=== PATIENT | female | born 1955 | race Caucasian/White ===

== ENCOUNTER 2021-10-21 16:29 | Emergency (ER) | payer OTHER, BC ==
--- OUTSIDE RECORDS SUMMARY | 2021-10-21 16:38 | XMS REPORT | Continuity of Care Document ---
:1955 Author Organization [facility] t Address [address] [place] [address] Care Team Providers Name Role Phone JOSÉ LUISMED Attending Clinician Unavailable SUDARSHAN Attending Clinician Unavailable CAMILLE Attending Clinician Unavailable MD LONNIE MARTÍNEZ Attending Clinician Unavailable MARITA Attending Clinician Unavailable JENNI Attending Clinician Unavailable MARY ALICE Attending Clinician Unavailable MD MARY ALICE Attending Clinician Unavailable MD SUDARSHAN OBIOMA Attending Clinician Unavailable MD DALIA OBRIEN Attending Clinician Unavailable ADRIANA Attending Clinician Unavailable RACHID Attending Clinician Unavailable DR LAUREL Attending Clinician Unavailable CAMILLE Admitting Clinician Unavailable MD LONNIE MARTÍNEZ Admitting Clinician Unavailable MARY ALICE Admitting Clinician Unavailable MD MARY ALICE Admitting Clinician Unavailable SUDARSHAN Admitting Clinician Unavailable MD Chantal REID Admitting Clinician Unavailable MD DALIA OBRIEN Admitting Clinician Unavailable DR LAUREL Admitting Clinician Unavailable Problems Condition Condition Condition Status Onset Resolution Last Treating Co mments Source Name Details Category Date Date Treatment Clinician Date NATALYA Diagnosis Active 2021-02-24 Mem oria 02-14 12:03:00 l NATALYA 00:00: Denis 00 Active 02/14/2021 [place] COLON Diagnosis Active 2016-11-17 Mem oria CANCER 11-14 05:49:00 l SCREENING- COLON 00:00: Karen nn Z12.11 CANCER 00 SCREENING- Z12.11 Active 11/14/2016 MH [place] R92.1 - Diagnosis Active 2016-04-16 Ma moria MAMMOGRAPH 01-31 15:55:00 l IC R92.1 - 00:01: Denis CALCIFCN MAMMOGRAPH 00 FOUND ON IC CALCIFCN FOUND ON Active 02/01/2016 OPID [place] Z12.31 - Diagnosis Active 2015-11-30 M emoria ENCNTR - 07:08:00 l SCREEN Z12.31 - 00:01: Vicente davis MAMMOGRAM ENCNTR 00 FOR MA SCREEN MAMMOGRAM FOR MA Active 11/12/2015 OPID [place] RT WRIST Diagnosis Active 2016-12-28 M emoria DISTAL - 02:03:00 l RADIUS RT WRIST 09:00: Vicente davis CLSD FX DISTAL 00 RADIUS CLSD FX Active 10/22/2015 [facility] Abnormal Problem Active 2021-09-15 Mem oria glucose 04-22 22:17:41 l level Abnormal 00:00: Vicente davis (finding) glucose 00 level (finding) Active 04/22/2015 Problem 09/15/2021 Data migrated from [employer] on 04/28/15. [facility], OPID Brittany, OPID [place], [facility], [place] Lymphedema Problem Active 2019-11-17 M emoria (disorder) 2- 00:38:51 l 00:00: Denis Lymphedema 00 (disorder) Active 11/25/2013 Problem 11/17/2019 Data migrated from [employer] on 03/20/15. [facility], OPIEverette Soto, OPID [place], [facility], [place] Obstructiv Problem Active 2021-09-15 M emoria e sleep 2-04 22:17:41 l apnea 00:00: [place] syndrome Obstructiv 00 (disorder) e sleep apnea syndrome (disorder) Active 11/25/2013 Problem 09/15/2021 Data migrated from [employer] on 03/20/15. [facility], OPIEverette Soto, OPID [place], [facility], [place] Hypothyroi Problem Active 2019-08-09 M emoria dism 02-12 21:25:36 l (disorder) 00:00: Vicente n Hypothyroi 00 dism (disorder) Active 02/12/2013 Problem 08/09/2019 Data migrated from [employer] on 03/20/15. [facility] OPID Brittany, OPID [place], [facility], [place] Depressive Problem Active 2021-09-15 M emoria disorder 4-24 22:17:41 l (disorder) 00:00: Vicente n Depressive 00 disorder (disorder) Active 02/12/2013 Problem 09/15/2021 Data migrated from [employer] on 03/20/15. [facility], OPID Brittany, OPID [place], [facility], [place] Obesity Problem Active 2016-05-15 Turner arnoldo (disorder) 8-20 00:23:22 l Obesity 00:00: Denis (disorder) 00 Active 06/10/2012 Problem 05/15/2016 Data migrated from [employer] on 03/20/15. OPID Brittany, OPID [place], [facility] Cobalamin Problem Active 2021-09-15 Me moria deficiency 7-11 22:17:41 l (disorder) 00:00: Vicente n Cobalamin 00 deficiency (disorder) Active 05/01/2012 Problem 09/15/2021 Data migrated from [employer] on 03/20/15. [facility] OPID Brittany, OPID [place], [facility], [place] Hypertensi Problem Active 2016-05-15 M emoria ve episode 7-10 00:23:22 l (disorder) 00:00: Vicente n Hypertensi 00 ve episode (disorder) Active 04/30/2012 Problem 05/15/2016 Data migrated from [employer] on 03/20/15. MH OPID Brittany, OPID [place], [facility] Pain in Problem 2016-01-01 Turner arnoldo wrist 05:02:18 l (finding) Pain in Herm connie wrist (finding) Problem 01/01/2016 [facility] Calcificat Problem Resolve 2021-09-15 Memoria ion of d 22:17:41 l breast Denis (finding) Calcificat ion of breast (finding) Resolved Problem 09/15/2021 Left [facility], OPID Brittany, OPID [place], [facility], [place] Dysuria Problem Resolve 2021-09-15 Mem oria (finding) d 22:17:41 l Dysuria Denis (finding) Resolved Problem 09/15/2021 [facility], [facility] [place], [facility] Acute Problem Active 2020-02-08 Memor ia urinary 22:36:35 l tract Acute Denis infection urinary (disorder) tract infection (disorder) Active Problem 02/08/2020 [facility] Chronic Problem Active 2020-02-08 Turner arnoldo renal 22:36:35 l impairment Chronic Her hunt (disorder) renal impairment (disorder) Active Problem 02/08/2020 [facility], OPIEverette Soto, OPID [place], [facility], [place] Diabetes Problem Active 2020-06-24 Mem oria mellitus 23:27:54 l (disorder) Diabetes He rmann mellitus (disorder) Active Problem 06/24/2020 [facility], OPID [place] Urinalysis Problem Active 2021-09-15 M emoria = abnormal 22:17:41 l (finding) Denis Urinalysis = abnormal (finding) Active Problem 09/15/2021 [facility], [facility] [place], [place] Atrial Problem Active 2021-09-15 Memor ia fibrillati 22:17:41 l on Atrial Denis (disorder) fibrillati on (disorder) Active Problem 09/15/2021 [facility], [facility] [place], [facility] Benign Problem Active 2021-09-15 Memor ia essential 22:17:41 l hypertensi Benign Herm connie on essential (disorder) hypertensi on (disorder) Active Problem 09/15/2021 [facility], OPID Brittany, OPID [place], [facility], [place] Cardiorena Problem Active 2021-09-15 M emoria l syndrome 22:17:41 l (disorder) Vicente n Cardiorena l syndrome (disorder) Active Problem 09/15/2021 [facility], OP[facility] [place], [place] Chronic Problem Active 2021-09-15 Turner arnoldo kidney 22:17:41 l disease Chronic Vicente n (disorder) kidney disease (disorder) Active Problem 09/15/2021 [facility], [facility] [place], [facility] Chronic Problem Active 2021-09-15 Turner arnoldo kidney 22:17:41 l disease Chronic Vicente n stage 3 kidney (disorder) disease stage 3 (disorder) Active Problem 09/15/2021 [facility], [facility] [place], [facility] Chronic Problem Active 2021-09-15 Turner arnoldo pain 22:17:41 l (finding) Chronic Herm connie pain (finding) Active Problem 09/15/2021 [facility], [facility] [place], [facility] Dependence Problem Active 2021-09-15 M emoria on 22:17:41 l supplement Vicente n al oxygen Dependence (finding) on supplement al oxygen (finding) Active Problem 09/15/2021 [facility], [place] Edema of Problem Active 2021-09-15 Mem oria lower 22:17:41 l extremity Edema of Her hunt (finding) lower extremity (finding) Active Problem 09/15/2021 [facility], [facility] [place], [facility] Hyperlipid Problem Active 2021-09-15 M emoria emia 22:17:41 l (disorder) Vicente n Hyperlipid emia (disorder) Active Problem 09/15/2021 Data migrated from [facility] on 03/20/15. [facility], ANTHONY Soto, OPID [place], [facility] [place], [place] Hyperparat Problem Active 2021-09-15 M emoria hyroidism 22:17:41 l (disorder) Vicente n Hyperparat hyroidism (disorder) Active Problem 09/15/2021 [facility], OP[facility] [place], [facility] Hypertensi Problem Active 2021-09-15 M emoria ve 22:17:41 l disorder, [place] systemic Hypertensi arterial ve (disorder) disorder, systemic arterial (disorder) Active Problem 09/15/2021 [facility], OPID [place], [place] Hypertensi Problem Active 2021-09-15 M emoria ve renal 22:17:41 l disease [place] (disorder) Hypertensi ve renal disease (disorder) Active Problem 09/15/2021 [facility], [facility] [place], [place] Hyperurice Problem Active 2021-09-15 M emoria bryant 22:17:41 l (disorder) Vicente n Hyperurice bryant (disorder) Active Problem 09/15/2021 Data migrated from [facility] on 03/20/15. [facility], OPID Brittany, OPID [place], [facility], [place] Lymphedema Problem Active 2021-09-15 M emoria of lower 22:17:41 l extremity Denis (disorder) Lymphedema of lower extremity (disorder) Active Problem 09/15/2021 [facility], [facility] [place], [facility] Malignant Problem Active 2021-09-15 Me moria neoplasm 22:17:41 l of skin of Vicente n upper limb Malignant (disorder) neoplasm of skin of upper limb (disorder) Active Problem 09/15/2021 [facility], [facility] [place], [facility] Morbid Problem Active 2021-09-15 Memor ia obesity 22:17:41 l (disorder) Morbid Herm connie obesity (disorder) Active Problem 09/15/2021 [facility], OPID Brittany, OPID [place], [facility], [place] Post-disch Problem Active 2021-09-15 M emoria arge 22:17:41 l follow-up [place] (finding) Post-disch arge follow-up (finding) Active Problem 09/15/2021 [facility], [place] Prerenal Problem Active 2021-09-15 Mem oria azotemia 22:17:41 l (disorder) Prerenal He rmann azotemia (disorder) Active Problem 09/15/2021 [facility], [facility] [place], [place] Proteinuri Problem Active 2021-09-15 M emoria a 22:17:41 l (finding) Denis Proteinuri a (finding) Active Problem 09/15/2021 [facility], [facility] [place], [place] Stasis Problem Active 2021-09-15 Memor ia ulcer 22:17:41 l (disorder) Stasis Herm connie ulcer (disorder) Active Problem 09/15/2021 [facility], [facility] [place], [place] Swelling - Problem Active 2021-09-15 M emoria edema - 22:17:41 l symptom Swelling Karen nn (finding) - edema - symptom (finding) Active Problem 09/15/2021 [facility], [facility] [place], [facility] Swollen Problem Active 2021-09-15 Turner arnoldo ankle 22:17:41 l (finding) Swollen Herm connie ankle (finding) Active Problem 09/15/2021 [facility], [facility] [place], [place] Urinary Problem Resolve 2021-09-15 Mem oria tract d 22:17:41 l infectious Urinary Her hunt disease tract (disorder) infectious disease (disorder) Resolved Problem 09/15/2021 [facility], [facility] [place], [place] Venous Problem Active 2021-09-15 Memor ia ulcer of 22:17:41 l leg Venous Denis (disorder) ulcer of leg (disorder) Active Problem 09/15/2021 [facility], [facility] [place], [place] Weight Problem Active 2021-09-15 Memor ia gain 22:17:41 l finding Weight [place] (finding) gain finding (finding) Active Problem 09/15/2021 [facility], [facility] [place], [place] Acute Problem Active 2016-05-15 Memor ia renal 00:23:22 l failure Acute [place] syndrome renal (disorder) failure syndrome (disorder) Active Problem 05/15/2016 Data migrated from [facility] on 03/20/15. OPID Brittany, OPID [place],[facility] Kidney Problem Active 2016-11-20 Memor ia disease 03:07:28 l (disorder) Kidney Herm connie disease (disorder) Active Problem 11/20/2016 [place] Migraine Problem Active 2016-11-20 Mem oria (disorder) 03:07:28 l Migraine Vicente n (disorder) Active Problem 11/20/2016 [facility], [place] RIGHT Diagnosis Active 2016-03-09 Mem oria WRIST 15:06:00 l DISTAL RIGHT Denis RADIUS WRIST CLSD FX DISTAL RADIUS CLSD FX Active [facility] DISTAL Diagnosis Active 2016-04-21 Mem oria RADIUS 09:46:00 l CLSD FX DISTAL Denis RADIUS CLSD FX Active [facility] Cholestero Problem 2016-01-01 M emoria l 05:02:18 l (substance Vicente n ) Cholestero l (substance ) Problem 01/01/2016 [facility] Sleep Problem 2016-01-01 Memor ia apnea 05:02:18 l (finding) Sleep Vicente n apnea (finding) Problem 01/01/2016 2does not use cpap [facility] [place] Dependence Problem 2020-102021-09-12 2021-09-12 Memoria on 11-09 01:29:16 01:29:16 l supplement 21:17: Vicente n al oxygen Dependence 00 on supplement al oxygen 09/09/2021 09/12/2021 [facility] Other Problem 2020-102021-09-12 2021-09-12 M emoria hyperlipid 11-09 01:29:16 01:29:16 l emia Other 21:16: [place] hyperlipid 00 emia 09/09/2021 09/12/2021 [facility] Unsteadine Problem 2020-102021-09-12 2021-09-12 Memoria ss on feet 11-09 01:29:16 01:29:16 l 21:13: [place] Unsteadine 00 ss on feet 09/09/2021 09/12/2021 [facility] Weakness Problem 2020-102021-09-12 2021-09-12 Memoria 11-09 01:29:16 01:29:16 l Weakness 21:13: Vicente n 00 09/09/2021 09/12/2021 [facility] Essential Problem 2020-102021-09-12 2021-09-12 Memoria (primary) 11-09 01:29:16 01:29:16 l hypertensi 21:12: Vicente n on Essential 00 (primary) hypertensi on 09/09/2021 09/12/2021 [facility] Other long Problem 2020-102021-09-08 2021-09-08 Memoria term 11-06 22:39:43 22:39:43 l (current) Other 22:29: Vicente n 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 ANTHONY Soto, OPIEverette [place],[facility] Girish Trace,[facility] Allergies, Adverse Reactions, Alerts Allergy Allergy Status Severity Reaction(s) Onset Inactive Treating Comm ents Source Name Type Date Date Clinician penicill penicill Active Memori a ins<sup> ins<sup> l 1</sup> 1</sup> Dneis codeine< codeine< Active Memori a sup>1</s sup>1</s l up> up> Denis cefepime cefepime Active Memori a l [place] Levaquin Levaquin Active Memori a l Denis penicill penicill Active Memori a ins<sup> ins<sup> l 2</sup> 2</sup> Denis codeine codeine Active Memoria l [place] penicill penicill Active Memori a ins ins l Denis Social History Social Habit Start Date Stop Date Quantity Comments Source Social History 2019-08-15 2019-08-15 [facility] Peterson retana 14:54:48 14:54:48 Smoking Status Start Date Stop Date Source Social History [facility] [place] Medications Ordered Filled Start Stop Current Ordering Indication Dosage Frequency Signature Comments Components Source Medication Medication Date Date Medication? Clinician (SIG) Name Name Jaswinderrocin 2020-10 Yes 1 appl, Memor ia 0.02 MG/MG 1-22 TOP, TID, l Topical 23:21: X 5 day, # Herm connie Ointment 00 22 gm, 0 Refill(s), Pharmacy: [facility] #[id number], 165.1, cm, 09/09/21 14:08:00 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, Height, 136.42, kg, 09/09/21 14:08:00 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, Weight bumetanide 2020-10 Yes 2 mg = 1 Mem oria 2 mg oral 1-19 tab, PO, l tablet 21:11: Daily, # Denis 00 30 tab, 0 Refill(s) allopurinol 2020-10 Yes 100 mg = 1 Memoria 100 mg oral 1-19 tab, PO, l tablet 21:10: BID, # 60 Vicente n 00 tab, 0 Refill(s) gabapentin 2020-10 Yes 200 mg = 2 M emoria 100 MG Oral 1-19 cap, PO, l Capsule 21:10: Bedtime, 0 Herm connie 00 Refill(s) QUEtiapine Yes 1 tablet, Me moria 50 mg oral 3-30 once a l tablet 13:55: day, 0 [place] 00 Refill(s) torsemide Yes 1 tablet, Mem oria 20 mg oral 3-30 twice a l tablet 13:55: day, 0 [place] 00 Refill(s) potassium Yes 1 tablet, Mem oria chloride 20 3-30 once a l mEq oral 13:54: day, 0 [place] tablet, 00 Refill(s) extended release (KCL) allopurinol Yes 1/2 Memori a 300 mg oral 3-30 tablet, l tablet 13:53: once a [place] 00 day, 0 Refill(s) carvedilol Yes 1 tablet, Me moria 3.125 mg 3-30 twice a l oral tablet 13:53: day, 0 Herm connie 00 Refill(s) Digoxin Yes 1 tablet, Memor ia 0.125 MG 3-30 once a l Oral Tablet 13:53: day, 0 Herm connie 00 Refill(s) DULoxetine Yes 1 capsule, M emoria 60 mg oral 3-30 once a l delayed 13:53: day, 0 [place] release 00 Refill(s) capsule apixaban 5 Yes 1 tablet, Me moria MG Oral 3-30 twice a l Tablet 13:53: day, 0 Denis [Eliquis] 00 Refill(s) gabapentin Yes 1 capsule, M emoria 300 MG Oral 3-30 twice a l Capsule 13:53: day, 0 Denis 00 Refill(s) metoprolol Yes 1 tablet, Me moria tartrate 50 3-30 Twice a l mg oral 13:53: day, 0 [place] tablet 00 Refill(s) midodrine 5 Yes 1 tablet, M emoria mg oral 3-30 twice a l tablet 13:53: day, 0 Denis 00 Refill(s) DULoxetine 2019-10 Yes 60 mg = 1 Me moria 60 mg oral 1-25 cap, PO, l delayed 17:17: Daily, # Vicente n release 00 30 cap, 0 capsule Refill(s) Spironolact 2019-10 Yes 25 mg = 1 M emoria one 25 MG 1-25 tab, PO, l Oral Tablet 17:17: Daily, 0 He rmann [Aldactone] 00 Refill(s) Digoxin 2019-10 Yes 0.125 mg, Memor ia 0.125 MG 1-25 PO, Daily, l Oral Tablet 17:13: # 30 tab, H ermann 00 0 Refill(s) Mupirocin 2019-10 Yes See Memoria 0.02 MG/MG 0-13 Instructio l Topical 15:44: ns, APPLY Karen nn Ointment 00 EXTERNALLY TO THE AFFECTED AREA TWICE DAILY, # 66 gm, 1 Refill(s), Pharmacy: [facility] #[id number], 170.18, cm, 12/16/19 14:42:00 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, Height, 164.318, kg, 12/16/19 14:42:00 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, Weight Nitrofurant Yes 100 mg = 1 Memoria oin 100 MG 8-09 cap, PO, l Oral 17:57: BID, X 10 Denis Capsule 00 day, # 20 [Macrobid] cap, 0 Refill(s), Pharmacy: [email or web address] #[id number], 170.18, cm, 12/16/19 14:42:00 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, Height, 164.318, kg, 12/16/19 14:42:00 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, Weight lisinopril Yes 2.5 mg = 1 M emoria 2.5 mg oral 6-04 tab, PO, l tablet 23:26: Daily, # [place] 00 30 tab, 2 Refill(s), called to pharmacy calcitriol 2019-0 Yes = 1 cap, Mem oria 0.25 mcg 5-20 PO, Daily, l oral 12:18: # 90 cap, Denis capsule 00 1 Refill(s), [id number] calcitriol 2020-0 Yes = 1 cap, Mem oria 0.25 mcg 4-16 PO, Daily, l oral 16:37: # 90 [place] capsule 47 unknown unit, [id number] Furosemide 2019-0 Yes = 1 tab, Mem oria 40 MG Oral 4-13 PO, Every l Tablet 20:06: Other Day, Karen nn 19 # 45 tab, [id number] prednisolon 2019-0 Yes 1 drop in M emoria e acetate 4-10 each eye, l 10 MG/ML 20:53: once [place] Ophthalmic 00 daily, 0 Suspension Refill(s) bromfenac 2019-0 Yes 1 drop in Mem oria 0.7 MG/ML 4-10 right eye, l Ophthalmic 20:53: once Denis Solution 00 daily, 0 [Prolensa] Refill(s) Furosemide 2019-0 Yes = 1 tab, Mem oria 40 MG Oral 1-23 PO, Every l Tablet 15:13: Other Day, Karen nn 34 # 45 tab, [id number] Mupirocin 2018-10 Yes See Memoria 0.02 MG/MG 2-27 Instructio l Topical 19:11: ns, # 66 Vicente n Ointment 15 gm, APPLY EXTERNALLY TO THE AFFECTED AREA TWICE DAILY, Pharmacy: [facility] #[id number] Nitrofurant 2018-10 Yes 100 mg = 1 Memoria oin 100 MG 2-13 cap, PO, l Oral 01:44: BID, X 5 [place] Capsule 00 day, # 10 [Macrodanti cap, 0 n] Refill(s), [id number] apixaban 5 2018-10 Yes 5 mg, PO, Me moria MG Oral 0-25 Q12H, 0 l Tablet 15:07: Refill(s) Vicente n [Eliquis] 00 metoprolol 2018-10 Yes 50 mg = 1 Me moria tartrate 50 0-25 tab, PO, l mg oral 15:07: BID, # 180 Herm connie tablet 00 tab, 0 Refill(s) Diltiazem 2018-10 Yes 180 mg = 1 Me moria Hydrochlori 0-25 cap, PO, l de XR 180 15:07: Daily, # Herm connie mg/24 hours 00 30 cap, 0 oral Refill(s) capsule, extended release tramadol 2018-10 Yes 150 mg = 1 Mem oria 150 mg/24 0-25 cap, PO, l hours oral 15:07: Daily, 0 Her hunt capsule, 00 Refill(s) extended release Acetaminoph 2018-10 Yes 1 tab, PO, Memoria en 325 MG / 0-25 Q6H, 0 l Hydrocodone 15:07: Refill(s) H ermann Bitartrate 00 5 MG Oral Tablet [[place] 5/325] calcitriol 2018-10 Yes = 1 cap, Mem oria 0.25 mcg 0-11 PO, Daily, l oral 21:10: # 90 [place] capsule 30 unknown unit, Pharmacy: [facility] #[id number] gabapentin Yes 300 mg = 1 M emoria 300 MG Oral 9-27 cap, PO, l Capsule 20:54: BID, # 180 Herm connie 00 cap, 3 Refill(s), called to pharmacy allopurinol Yes = 1 tab, Me moria 300 mg oral 8-17 PO, Daily, l tablet 02:39: # 90 tab, Vicente n 31 Pharmacy: [facility] #[id number] QUEtiapine Yes 50 mg = 1 Me moria 50 mg oral 6-06 tab, PO, l tablet 15:28: Bedtime, # Karen nn 00 30 tab, 1 Refill(s) eletriptan Yes 40 mg = 1 Me moria 40 mg oral 6-06 tab, PO, l tablet 15:26: Daily, PRN Karen nn 00 for migraine headache, may repeat dose once in 2 hours, # 6 tab, 0 Refill(s) atorvastati Yes See Memori a n 40 mg 3-14 Instructio l oral tablet 15:07: ns, TAKE 1 [place] 35 TABLET BY MOUTH EVERY NIGHT AT BEDTIME, # 90 tab, 1 Refill(s), Pharmacy: [facility] [place] [id number] amLODIPine Yes See Memoria 5 mg oral 3-14 Instructio l tablet 15:07: ns, TAKE 1 Karen nn 33 TABLET BY MOUTH EVERY DAY, # 90 tab, 1 Refill(s), Pharmacy: [facility] [place] [id number] lisinopril Yes See Memoria 5 mg oral 8-21 Instructio l tablet 19:00: ns, TAKE 1 Karen nn 30 TABLET BY MOUTH DAILY, # 90 tab, 1 Refill(s), Pharmacy: [facility] [place] [id number] atorvastati Yes See Memori a n 40 mg 8-21 Instructio l oral tablet 18:50: ns, TAKE 1 [place] 45 TABLET BY MOUTH EVERY NIGHT AT BEDTIME, # 30 tab, 5 Refill(s), Pharmacy: [facility] [place] [id number] amLODIPine Yes See Memoria 5 mg oral 8-21 Instructio l tablet 18:50: ns, TAKE 1 Karen nn 41 TABLET BY MOUTH EVERY DAY, # 30 tab, 5 Refill(s), Pharmacy: [facility] [place] [id number] lisinopril No See Memoria 5 mg oral 7-31 Instructio l tablet 15:28: ns, # 90 [place] 34 tab, TAKE 1 TABLET BY MOUTH DAILY, Pharmacy: [facility] [place] [id number] allopurinol No 300 mg = 1 Memoria 300 mg oral 5-10 tab, PO, l tablet 13:59: Daily, # [place] 00 90 tab, 1 Refill(s), Pharmacy: [facility] [place] [id number] lisinopril No See Memoria 5 mg oral 5-01 Instructio l tablet 12:38: ns, # 90 Denis 18 tab, TAKE 1 TABLET BY MOUTH DAILY, Pharmacy: [facility] [place] [id number] ALLOPURINOL Yes See Memori a 300MG 5-01 Instructio l TABLETS 12:38: ns, # 90 Vicente n 18 tab, TAKE 1 TABLET BY MOUTH DAILY, Pharmacy: [facility] [place] [id number] calcitriol Yes 0.25 Memoria 0.25 mcg 3-28 microgram l oral 13:49: = 1 cap, [place] capsule 00 PO, Daily, # 90 cap, 3 Refill(s), [facility] Mupirocin Yes 1 appl, Memor ia 0.02 MG/MG 3-21 TOP, BID, l Topical 15:37: 30 grams Vicente n Ointment 21 3each, # 3 ea, 1 Refill(s), Pharmacy: [facility] atorvastati Yes See Memori a n 40 mg 3-21 Instructio l oral tablet 15:36: ns, TAKE 1 [place] 22 TABLET BY MOUTH EVERY NIGHT AT BEDTIME, # 30 tab, 5 Refill(s), [facility] amLODIPine Yes See Memoria 5 mg oral 3-21 Instructio l tablet 15:36: ns, TAKE 1 Karen nn 18 TABLET BY MOUTH EVERY DAY, # 30 tab, 5 Refill(s), Pharmacy: [facility] aspirin 81 Yes 81 mg = 1 Me moria mg tablet, 1-24 tab, PO, l enteric 16:34: Daily, # Vicente n coated 00 90 tab, 3 Refill(s) Xopenex No Kyle K 0.63 mg = Mem oria 0.63 mg/3 3-11 Silvestre 3 mL, l mL 01:00: Soln, NEB, Denis inhalation 00 Once, solution first dose 12/30/15 19:00:00 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, stop date 12/30/15 19:00:00 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 Misc No Perico 300 mL, Memoria Medication 3-11 Wheat Soln-IV, l 00:03: IV, Once, [place] 00 first dose 12/30/15 18:03:00 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, stop date 12/30/15 18:03:00 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 promethazin No Kyle K 12.5 mg = Memoria e 3-11 Silvestre 0.5 mL, l 00:02: Injection, [place] 00 IM, Once PRN for severe nausea, first dose 12/30/15 18:02:00 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 albuterol No Kyle K 2.5 mg = 3 Memoria 2.5 mg/3 mL 3-11 Silvestre mL, Soln, l (0.083%) 00:02: NEB, Once Herm connie inhalation 00 PRN for solution wheezing, first dose 12/30/15 18:02:00 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 Demerol HCl No Kyle K 12.5 mg = Memoria 3-11 Silvestre 0.25 mL, l 00:02: Injection, [place] 00 IV Push, Once PRN for shivers, first dose 12/30/15 18:02:00 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 ondansetron No Kyle K 4 mg = 2 Memoria 3-11 Silvestre mL, l 00:02: Injection, [place] 00 IV Push, q15min PRN for nausea/vom iting, order duration: 2 doses, first dose 12/30/15 18:02:00 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, stop date Limited # of times Dilaudid No Kyle K 0.5 mg = Mem oria 3-11 Silvestre 0.25 mL, l 00:02: Injection, Denis 00 IV Push, q10min PRN for pain severe (7-10), first dose 12/30/15 18:02:00 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 diphenhydrA No Kyle K 25 mg = M emoria MINE 3-11 Silvestre 0.5 mL, l 00:02: Injection, [place] 00 IV Push, Once PRN for itching, first dose 12/30/15 18:02:00 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 LR 1,000 mL No Kyle K 1,000 mL, Memoria 3-11 Silvestre IV, 75 l 00:02: mL/hr, Denis 00 start date 12/30/15 18:02:00 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 Saline Lock No Kyle K 10 mL, Me moria Flush 3-11 Silvestre Soln, IV l 00:02: Push, As Denis 00 Indicated PRN for flush, first dose 12/30/15 18:02:00 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 Bupivacaine No Kyle K 300 mL, M emoria 0.25% 300 3-11 Silvestre Nerve l mL pump 300 00:02: Block, 5 He rmann mL 00 mL/hr, start date 12/30/15 18:02:00 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 Misc No Perico 1,000 mL, Memori a Medication 3-10 Wheat Soln-IV, l 23:42: IV, Once, [place] 00 first dose 12/30/15 17:42:00 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, stop date 12/30/15 17:42:00 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 fentaNYL No Perico 25 mcg = Mem oria 3-10 Wheat 0.5 mL, l 23:20: Injection, Denis 00 IV, Once, first dose 12/30/15 17:20:00 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, stop date 12/30/15 17:20:00 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 ondansetron No Perico 4 mg = 2 Memoria 3-10 Wheat mL, l 23:03: Injection, Denis 00 IV, Once, first dose 12/30/15 17:03:00 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, stop date 12/30/15 17:03:00 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 fentaNYL No Perico 25 mcg = Mem oria 3-10 Wheat 0.5 mL, l 23:00: Injection, Denis 00 IV, Once, first dose 12/30/15 17:00:00 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, stop date 12/30/15 17:00:00 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 fentaNYL No Perico 25 mcg = Mem oria 3-10 Wheat 0.5 mL, l 22:48: Injection, [place] 00 IV, Once, first dose 12/30/15 16:48:00 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, stop date 12/30/15 16:48:00 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 fentaNYL No Perico 25 mcg = Mem oria 3-10 Wheat 0.5 mL, l 22:37: Injection, Denis 00 IV, Once, first dose 12/30/15 16:37:00 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, stop date 12/30/15 16:37:00 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 dexamethaso No Perico 8 mg = 2 Memoria ne 3-10 Wheat mL, l 22:23: Injection, Denis 00 IV, Once, first dose 12/30/15 16:23:00 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, stop date 12/30/15 16:23:00 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 Misc No Perico 1,000 mL, Memori a Medication 3-10 Wheat Soln-IV, l 22:21: IV, Once, Denis 00 first dose 12/30/15 16:21:00 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, stop date 12/30/15 16:21:00 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 clindamycin Yes Perico 928.125 M emoria 3-10 Wheat mg, l 22:18: Soln-IV, Denis 00 IV, Once, first dose 12/30/15 16:18:00 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, stop date 12/30/15 16:18:00 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 fentaNYL No Perico 25 mcg = Mem oria 3-10 Wheat 0.5 mL, l 22:05: Injection, Denis 00 IV, Once, first dose 12/30/15 16:05:00 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, stop date 12/30/15 16:05:00 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 midazolam No Perico 0.5 mg = Me moria 3-10 Wheat 0.5 mL, l 22:05: Injection, Denis 00 IV, Once, first dose 12/30/15 16:05:00 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, stop date 12/30/15 16:05:00 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 lidocaine No Perico 3 mL, Memor ia 3-10 Wheat Injection, l 21:58: IV, Once, [place] 00 first dose 12/30/15 15:58:00 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, stop date 12/30/15 15:58:00 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 propofol No Perico 120 mg = Mem oria 3-10 Wheat 12 mL, l 21:58: Emulsion, Denis 00 IV, Once, first dose 12/30/15 15:58:00 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, stop date 12/30/15 15:58:00 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 midazolam No Perico 0.5 mg = Me moria 3-10 Wheat 0.5 mL, l 21:50: Injection, Denis 00 IV, Once, first dose 12/30/15 15:50:00 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, stop date 12/30/15 15:50:00 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 fentaNYL No Perico 25 mcg = Mem oria 3-10 Wheat 0.5 mL, l 21:50: Injection, Denis 00 IV, Once, first dose 12/30/15 15:50:00 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, stop date 12/30/15 15:50:00 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 midazolam No Perico 0.5 mg = Me moria 3-10 Wheat 0.5 mL, l 21:10: Injection, Denis 00 IV, Once, first dose 12/30/15 15:10:00 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, stop date 12/30/15 15:10:00 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 fentaNYL No Perico 25 mcg = Mem oria 3-10 Wheat 0.5 mL, l 21:10: Injection, [place] 00 IV, Once, first dose 12/30/15 15:10:00 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, stop date 12/30/15 15:10:00 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 fentaNYL No Perico 25 mcg = Mem oria 3-10 Wheat 0.5 mL, l 21:05: Injection, Denis 00 IV, Once, first dose 12/30/15 15:05:00 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, stop date 12/30/15 15:05:00 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 midazolam No Perico 0.5 mg = Me moria 3-10 Wheat 0.5 mL, l 21:05: Injection, [place] 00 IV, Once, first dose 12/30/15 15:05:00 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, stop date 12/30/15 15:05:00 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 clindamycin No Jose Francisco 900 mg, IV Memoria 3-10 Johnson Piggyback, l 20:00: Once, [place] 00 infuse over 30 minutes, first dose 12/30/15 14:00:00 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, stop date 12/30/15 14:00:00 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, Prophylaxi s LR 1,000 mL No Kyle K 1,000 mL, Memoria 3-10 Silvestre IV, 30 l 19:27: mL/hr, [place] 00 start date 12/30/15 13:27:00 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 Lidocaine No Kyle K 0.2 mL, Mem oria 2% 0.2 mL 3-10 Silvestre Injection, l IV Start 19:27: Subcutaneo [facility]] 00 us, Once PRN for other (see comment), first dose 12/30/15 13:27:00 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 Seroquel Yes 100 mg, Memori a 3-09 Oral, l 14:40: Daily, 0 [place] 00 Refill(s), migraines acetaminoph Yes 1 tabs, Mem oria en-HYDROcod 3-09 Oral, l one 325 14:40: q6hr, 0 Denis mg-5 mg 00 Refill(s), oral tablet pain traMADol 50 Yes 50 mg = 1 M emoria mg oral 3-09 tabs, l tablet 14:40: Oral, Denis 00 q4hr, 0 Refill(s), pain amLODIPine- Yes 1 tabs, Mem oria atorvastati 12-28 Oral, qHS, l n 5 mg-40 14:40: 0 Denis mg oral 00 Refill(s), tablet cholestero l/hyperten will Osteo Yes Oral, Memoria Bi-Flex 3-09 Daily, 0 l 14:40: Refill(s), [place] 00 supplement Nature's Yes 1,000 mg = Mem oria Bounty Red 12-28 2 caps, l Krill Oil 14:40: Oral, BID, He rmann 500 mg oral 00 0 capsule Refill(s), supplement aspirin 81 Yes 81 mg = 1 Me moria mg oral 12-28 tabs, l tablet 14:40: Oral, Denis 00 Daily, 0 Refill(s), supplement Axert 12.5 Yes 12.5 mg = Me moria mg oral 12-28 1 tabs, l tablet 14:40: Oral, [place] 00 Once, PRN for migraine headache, may repeat dose once in 2 hours, # 6 tabs, 0 Refill(s), migrainesm ay repeat dose once in 2 hours Wellbutrin Yes 300 mg, Turner arnoldo XL 12-28 Oral, l 14:40: q24hr, 0 [place] 00 Refill(s), migraines Immunizations Ordered Immunization Filled Immunization Date Status Commen ts Source Name Name influenza 2019-08-13 Completed [facility] vaccine-unspecified< 00:00:00 Herm connie sup>1</sup> pneumococcal 2019-05-14 Completed [facility] 23-valent 00:00:00 Denis vaccine<sup>3</sup> Hx influenza 2011-08-15 Completed [facility] vaccine-unspecified< 14:42:42 Herm connie sup>1</sup> Hx influenza 2011-08-15 Completed [facility] vaccine-unspecified< 14:42:42 Herm connie sup>2</sup> Vital Signs Vital Name Observation Time Observation Value Comments Source Heart Rate 2021-09-09 20:12:00 [facility] Denis Heart Rate 2021-09-09 20:08:00 [facility] [place] Systolic (mm Hg) 2021-09-09 20:08:00 Turner rial [place] Diastolic (mm Hg) 2021-09-09 20:08:00 Mem orial Denis Height 2021-09-09 20:08:00 165.1 cm [facility] Denis Weight 2021-09-09 20:08:00 [facility] [place] BMI Calculated 2021-09-09 20:08:00 Memori al [place] Systolic (mm Hg) 2020-09-15 15:59:00 Turner rial Denis Diastolic (mm Hg) 2020-09-15 15:59:00 Mem orial [place] Heart Rate 2020-09-15 15:59:00 [facility] Denis Height 2020-09-15 15:59:00 165.1 cm [facility] [place] Weight 2020-09-15 15:59:00 [facility] [place] BMI Calculated 2020-09-15 15:59:00 Memori al Denis Systolic (mm Hg) 2019-12-16 20:42:00 Turner rial [place] Diastolic (mm Hg) 2019-12-16 20:42:00 Mem orial [place] Heart Rate 2019-12-16 20:42:00 [facility] Denis Temperature Oral (F) 2019-12-16 20:42:00 98.2 F [facility] Height 2019-12-16 20:42:00 170.18 cm [facility] [place] Weight 2019-12-16 20:42:00 [facility] [place] BMI Calculated 2019-12-16 20:42:00 Memori al Denis Systolic (mm Hg) 2019-10-02 21:53:00 Turner rial Denis Diastolic (mm Hg) 2019-10-02 21:53:00 Mem orial Denis Heart Rate 2019-10-02 21:53:00 [facility] [place] Temperature Oral (F) 2019-10-02 21:53:00 97.9 F [facility] [place] Height 2019-10-02 21:53:00 165.1 cm [facility] [place] Weight 2019-10-02 21:53:00 [facility] [place] BMI Calculated 2019-10-02 21:53:00 Memori al Denis Height 2019-08-15 14:54:00 165.1 cm [facility] Denis Weight 2019-08-15 14:54:00 [facility] [place] BMI Calculated 2019-08-15 14:54:00 Memori al [place] Systolic (mm Hg) 2019-08-15 14:54:00 Turner rial Denis Diastolic (mm Hg) 2019-08-15 14:54:00 Mem orial [place] Heart Rate 2019-08-15 14:54:00 [facility] [place] Temperature Oral (F) 2019-08-15 14:54:00 97.6 F [facility] [place] Systolic (mm Hg) 2019-07-31 15:37:00 Turner rial Denis Diastolic (mm Hg) 2019-07-31 15:37:00 Mem orial [place] Heart Rate 2019-07-31 15:37:00 [facility] Denis Temperature Oral (F) 2019-07-31 15:37:00 98.2 F [facility] [place] Height 2019-07-31 15:37:00 165.1 cm [facility] [place] Weight 2019-07-31 15:37:00 [facility] [place] BMI Calculated 2019-07-31 15:37:00 Memori al [place] Weight 2019-03-27 15:18:00 [facility] [place] BMI Calculated 2019-03-27 15:18:00 Memori al [place] Height 2019-03-27 15:18:00 165.1 cm [facility] [place] Temperature Oral (F) 2019-03-27 15:18:00 98.4 F [facility] [place] Heart Rate 2019-03-27 15:18:00 [facility] [place] Systolic (mm Hg) 2019-03-27 15:18:00 Turner rial [place] Diastolic (mm Hg) 2019-03-27 15:18:00 Mem orial Denis Height 2019-01-02 19:16:00 165.1 cm [facility] [place] BMI Calculated 2019-01-02 19:16:00 Memori al [place] Weight 2019-01-02 19:16:00 [facility] [place] Heart Rate 2019-01-02 19:16:00 [facility] [place] Systolic (mm Hg) 2019-01-02 19:16:00 Turner rial [place] Diastolic (mm Hg) 2019-01-02 19:16:00 Mem orial [place] Height 2019-01-02 14:26:00 167.01 cm [facility] [place] BMI Calculated 2019-01-02 14:26:00 Memori al Denis Weight 2019-01-02 14:26:00 [facility] [place] Heart Rate 2019-01-02 14:26:00 [facility] [place] Temperature Oral (F) 2019-01-02 14:26:00 97.9 F [facility] [place] Systolic (mm Hg) 2019-01-02 14:26:00 Turner rial Denis Diastolic (mm Hg) 2019-01-02 14:26:00 Mem orial [place] Systolic (mm Hg) 2018-07-18 18:33:00 Turner rial [place] Diastolic (mm Hg) 2018-07-18 18:33:00 Mem orial Denis Heart Rate 2018-07-18 18:33:00 [facility] [place] Weight 2018-07-18 18:33:00 [facility] [place] BMI Calculated 2018-06-11 18:31:00 Memori al [place] Weight 2018-06-11 18:31:00 [facility] [place] Systolic (mm Hg) 2018-06-11 18:31:00 Turner rial [place] Diastolic (mm Hg) 2018-06-11 18:31:00 Mem orial [place] Height 2018-06-11 18:31:00 170.18 cm [facility] [place] Temperature Oral (F) 2018-06-11 18:31:00 98.3 F [facility] [place] Heart Rate 2018-06-11 18:31:00 [facility] [place] Weight 2018-01-10 16:14:00 [facility] [place] Height 2018-01-10 16:14:00 170.18 cm [facility] [place] BMI Calculated 2018-01-10 16:14:00 Memori al Denis Heart Rate 2018-01-10 16:14:00 [facility] [place] Systolic (mm Hg) 2018-01-10 16:14:00 Turner rial [place] Diastolic (mm Hg) 2018-01-10 16:14:00 Mem orial Denis BMI Calculated 2018-01-09 15:06:00 Memori al [place] Height 2018-01-09 15:06:00 170.18 cm [facility] [place] Weight 2018-01-09 15:06:00 [facility] [place] Systolic (mm Hg) 2018-01-09 15:06:00 Turner rial [place] Diastolic (mm Hg) 2018-01-09 15:06:00 Mem orial Denis Heart Rate 2018-01-09 15:06:00 [facility] [place] Temperature Oral (F) 2018-01-09 15:06:00 97.9 F [facility] [place] Weight 2016-11-14 16:17:00 [facility] [place] Height 2016-11-14 16:17:00 170.18 cm [facility] [place] BMI Calculated 2016-11-14 16:17:00 Memori al Denis Respitory Rate 2015-12-31 01:25:00 Memori al [place] Systolic (mm Hg) 2015-12-31 00:50:00 Turner rial [place] Respitory Rate 2015-12-31 00:50:00 Memori al Denis Heart Rate 2015-12-31 00:50:00 [facility] [place] Systolic (mm Hg) 2015-12-31 00:40:00 Turner rial [place] Respitory Rate 2015-12-31 00:40:00 Memori al Denis Heart Rate 2015-12-31 00:40:00 [facility] [place] Heart Rate 2015-12-31 00:30:00 [facility] [place] Systolic (mm Hg) 2015-12-31 00:30:00 Turner rial [place] Temperature Oral (F) 2015-12-30 23:50:00 37.1 Linda [facility] [place] Height 2015-12-30 19:23:00 169 cm [facility] [place] Weight 2015-12-30 19:23:00 [facility] [place] Temperature Oral (F) 2015-12-30 19:23:00 36.6 Linda [facility] [place] Height 2015-12-29 14:13:00 170 cm [facility] [place] Weight 2015-12-29 14:13:00 [facility] [place] Procedures Procedure Date / Time Performed Performing Clinician [facility] e Diabetic retinal eye 2019-12-11 06:00:00 Jourdan Barrios exam<sup>1</sup> Mammogram 2017-05-05 05:00:00 Aylin hunt Colonoscopy<sup>2</sup> 2016-11-17 06:00:00 Turner rial Denis OPEN REDUCTION INTERNAL 2015-12-30 22:13:00 Jose Francisco Johnson Memo rial Denis FIXATION RADIUS INTRA-ARTICULAR W/3 FRAGMENTS 90510 (Right)<sup>1</sup> Repair of 2015-12-30 06:00:00 Aylin hunt wrist<sup>1</sup> skin cancer removed from 2011-10-22 00:00:00 Mem orial [place] arm Skin cancer of [facility] [place] arm<sup>2</sup> Procedure<sup>2</sup> [facility] Tubal ligation [facility] Eye operation [facility] Biopsy of breast [facility] n bilateral radial [facility] kerototomy bilateral tubal ligation Memoria l Denis colonoscopy [facility] Encounters Start End Encounter Admission Attending Care Care Encounter Source Date/Time Date/Time Type Type Clinicians Facility Department ID 2021-09-20 2021-09-20 Outpatient ADRIANA [facility] [id number] [place] 00:00:00 00:00:00 SURIND[address]ILATOSHA [address] 2021-09-12 2021-09-13 Between nullFlavo [facility] Family [id number] Memoria 14:18:24 14:18:24 Visit r Medicine 62 l Carrillo Zhang n 2021-09-12 2021-09-13 Between nullFlavo [facility] Family [id number] Memoria 00:56:47 00:56:47 Visit r Medicine 61 l Carrillo Zhang n 2021-09-09 2021-09-10 Outpatient nullFlavo [facility] Family 3 [id number] Memoria 20:00:00 05:59:59 r Medicine 52 l Vizcainojoanne Zhang n 2021-09-06 2021-09-08 Phone nullFlavo [facility] Family [id number] Memoria 21:38:38 05:59:59 Message r Medicine 13 l Carrillo Zhang n 2021-09-07 2021-09-07 Outpatient SUDARSHAN [facility] [id number] [place] 00:00:00 00:00:00 MARY Barragan[address] [facility] 2021-09-05 2021-09-06 Between nullFlavo [facility] Family [id number] Memoria 15:33:59 15:33:59 Visit r Medicine 59 l Carrillo Zhang n 2021-07-14 2021-07-26 Inpatient SOLIPURAM, [facility] [id number] [place] 00:00:00 00:00:00 MICHELLE [address] 2021-07-13 2021-07-13 Outpatient MARITA, [facility] [id number] [place] 00:00:00 00:00:00 KRISTIAN [address] 2021-06-30 2021-06-[address] [facility] [id number] [place] 00:00:00 00:00:00 RAZIUDDIN 273 Meth aiden 2021-06-07 2021-06-07 Outpatient EKERUO, [facility] [id number] [place] 00:00:00 00:00:00 MARY 787 Method i 2021-06-07 2021-06-07 Outpatient DAOURA, [facility] [id number] [place] 00:00:00 00:00:00 NILESH 546 Method i 2021-05-19 2021-05-26 Inpatient MATHIVANAN, [facility] [id number] [place] 00:00:00 00:00:00 COURTNEY 275 Method i 2021-05-12 2021-05-12 Outpatient AHMED, [facility] [id number] [place] 00:00:00 00:00:00 RAZIUDDIN 199 Meth aiedn 2021-05-11 2021-05-11 Outpatient EKERUO, [facility] [id number] [place] 00:00:00 00:00:00 MARY 640 Method i 2021-05-06 2021-05-06 Outpatient EKERUO, [facility] [id number] [place] 00:00:00 00:00:00 MARY 435 Method i 2021-05-06 2021-05-06 Outpatient EKERUO, [facility] [id number] [place] 00:00:00 00:00:00 MARY 537 Method i 2021-05-03 2021-05-03 Outpatient EKERUO, [facility] [id number] [place] 00:00:00 00:00:00 MARY 709 Method i 2021-04-08 2021-04-21 Inpatient SOLIPURAM, [facility] [id number] [place] 00:00:00 00:00:00 MICHELLE 685 Method i 2021-03-09 2021-03-09 Outpatient AHMED, [facility] [id number] [place] 00:00:00 00:00:00 RAZIUDDIN 101 Meth aiden 2021-02-24 2021-02-24 Outpatient [facility] [id number] Memoria 01:00:00 04:59:00 r Denis 58 l Reinbeck Karen 2021-02-23 2021-02-23 Outpatient AHMED, [facility] [id number] [facility] 20:00:00 23:59:00 RAZIUDDIN 2021-02-10 2021-02-10 Outpatient ADRIANA, [facility] [id number] [place] 00:00:00 00:00:00 RAZIUDDIN 598 Meth aiden 2021-02-03 2021-02-08 Inpatient MARY ALICE, [facility] [id number] [place] 00:00:00 00:00:00 COURTNEY 060 Method i 2021-01-20 2021-01-20 Outpatient [facility] [id number] [place] 00:00:00 00:00:00 470 Method i 2021-01-18 2021-01-19 Outpatient nullFlavo [facility] 3 [id number] Memoria 19:30:00 04:59:59 r Medicine 51 l Carrillo Zhang n 2021-01-18 2021-01-18 Outpatient [facility] [id number] [place] 00:00:00 00:00:00 398 Method i 2021-01-14 2021-01-15 Between nullFlavo [facility] [id number] Memoria 13:38:03 13:38:03 Visit r Medicine 57 l Carrillo Zhang n 2021-01-12 2021-01-12 Outpatient ADRIANA, [facility] [id number] [place] 00:00:00 00:00:00 RAZIUDDIN 554 Meth aiden 2020-12-31 2021-01-05 Inpatient MARY ALICE, [facility] [id number] [place] 00:00:00 00:00:00 COURTNEY 541 Method i 2020-12-17 2020-12-28 Inpatient MARY ALICE, [facility] Vidya [id number] [place] 00:00:00 00:00:00 COURTNEY 559 Method i 2020-10-11 2020-10-18 Inpatient MARY ALICE, [facility] [id number] [place] 00:00:00 00:00:00 COURTNEY 271 Method i 2020-09-15 2020-09-16 Outpatient nullFlavo [facility] 3 [id number] Memoria 16:30:00 05:59:59 r Medicine 50 l Carrillo davis 2020 2020-09-07 Inpatient SOLIPURAM, [facility] [id number] [place] 00:00:00 00:00:00 MICHELLE 464 Method i 2020-08-13 2020-09-01 Inpatient CAMILLE, [facility] [id number] [place] 00:00:00 00:00:00 MICHELLE 557 Method i 2020-08-13 2020-08-14 Outpt Diag nullFlavo [facility] [id number] Memoria 18:10:00 04:59:00 Services r Outpatient 06 l Imaging [place] Reinbeck 2020-08-11 2020-08-12 Between nullFlavo [facility] Family [id number] Memoria 17:58:19 17:58:19 Visit r Medicine 56 l Carrillo Zhang n 2020-08-03 2020-08-04 Outpatient nullFlavo [facility] Family 3 [id number] Memoria 15:15:00 04:59:59 r Medicine 49 l Carrillo Zhang n 2020-06-22 2020-06-23 Outpt Diag nullFlavo [facility] [id number] Memoria 17:02:00 04:59:00 Services r Outpatient 05 l Imaging [place] Reinbeck 2020-06-17 2020-06-17 Ambulatory nullFlavo [facility] [id number] Memoria 19:00:00 19:00:00 Pre-Reg r Nephrology 46 l Carrillo Zhang n 2020-06-10 2020-06-[address] [facility] [id number] Memoria 11:15:00 11:15:00 47 l [place] 2020-06-02 2020-06-03 Outpatient nullFlavo [facility] [id number] Memoria 19:45:00 04:59:59 r Nephrology 48 l Carrillo Zhang n 2020-05-20 2020-05-20 Outpatient MANGIN, [facility] [id number] [place] 00:00:00 00:00:00 FABIOLA 832 Method i 2020-03-23 2020-03-25 Phone nullFlavo [facility] [id number] Memoria 16:17:50 04:59:59 Message r Nephrology 12 l Carrillo Zhang n 2020-03-18 2020-03-19 Outpatient nullFlavo [facility] [id number] Memoria 19:00:00 04:59:59 r Nephrology 41 l Carrillo Zhang n 2020-03-08 2020-03-10 Phone nullFlavo [facility] [id number] Memoria 18:35:51 04:59:59 Message r Nephrology 11 leonard Watson Denis 2020-02-11 2020-02-12 Outpatient nullFlavo [facility] 3 [id number] Memoria 15:15:00 04:59:59 r Medicine 45 leonard Zhang ryan 2020-02-11 2020-02-11 Ambulatory nullFlavo [facility] 3 [id number] Memoria 15:15:00 15:15:00 Pre-Reg r Medicine 44 l Carrillo Zhang ryan 2020-02-05 2020-02-07 Phone nullFlavo MG [id number] Memoria 13:23:32 04:59:59 Message r Nephrology 10 leonard Rameycora davis 2020-02-05 2020-02-06 Between nullFlavo [facility] Family [id number] Memoria 14:14:54 14:14:54 Visit r Medicine 52 l Carrillo Vicente davis 2020-02-05 2020-02-05 Outpatient [facility] [place] [id number] Memoria 11:30:00 11:30:00 44 leonard Denis 2020-02-02 2020-02-04 Phone nullFlavo [facility] Family [id number] Memoria 20:00:15 04:59:59 Message r Medicine 09 leonard Rameycora davis 2020-01-30 2020-02-01 Phone nullFlavo [facility] Family [id number] Memoria 17:18:28 04:59:59 Message r Medicine 08 leonard Rameycora davis 2020-01-30 2020-02-01 Phone nullFlavo MG [id number] Memoria 13:26:55 04:59:59 Message r Nephrology 07 l Carrillo Zhang ryan 2019-12-16 2019-12-17 Outpatient nullFlavo [facility] Family 3 [id number] Memoria 20:15:00 05:59:59 r Medicine 42 leonard Vizcaino Vicente davis 2019-11-13 2019-11-15 Phone nullFlavo [facility] Family [id number] Memoria 14:22:27 05:59:59 Message r Medicine 06 leonard PostVizcaino Vicente davis 2019-10-17 2019-10-19 Phone nullFlavo [facility] Family [id number] Memoria 16:06:04 05:59:59 Message r Medicine 05 l Carrillo Zhang ryan 2019-10-02 2019-10-03 Between nullFlavo MG [id number] Memoria 20:05:03 20:05:03 Visit r Nephrology 45 leonard Barrios 2019-10-02 2019-10-03 [place] [id number] Memoria 20:45:00 05:59:59 r Nephrology 38 l Carrillo Zhang ryan 2019-09-26 2019-09-27 Between nullFlavo MG [id number] Memoria 00:07:10 00:07:10 Visit r Nephrology 43 l Walter Barrios 2019-09-25 2019-09-25 Outpatient [facility] [id number] Memoria 09:00:00 09:00:00 40 leonard Denis 2019-09-16 2019-09-17 Between nullFlavo [facility] [id number] Memoria 21:47:12 21:47:12 Visit r Medicine 41 leonard Zhang ryan 2019-08-19 2019-08-20 Between nullFlavo [facility] [id number] Memoria 22:13:13 22:13:13 Visit r Medicine 40 leonard Zhang ryan 2019-08-15 2019-08-16 Outpatient nullFlavo [facility] 3 [id number] Memoria 14:45:00 04:59:59 r Medicine 40 leonard Zhang ryan 2019-08-07 2019-08-07 Ambulatory nullFlavo [facility] 3 [id number] Memoria 16:00:00 16:00:00 Pre-Reg r Medicine 36 leonard Zhang ryan 2019-07-31 2019-08-01 [place] [id number] Memoria 15:00:00 04:59:59 r Nephrology 36 l Carrillo Zhang ryan 2019-07-31 2019-07-31 Outpatient MHIE MHIE [id number] Memoria 12:00:00 12:00:00 38 leonard Denis 2019-07-03 2019-07-05 Phone nullFlavo [facility] Family [id number] Memoria 15:15:06 04:59:59 Message r Medicine 04 leonard Zhang ryan 2019-07-03 2019-07-05 Phone nullFlavo MG [id number] Memoria 15:10:51 04:59:59 Message r Nephrology 03 leonard davis 2019-07-03 2019-07-03 [place] [id number] Memoria 20:00:00 20:00:00 Pre-Reg r Nephrology 35 leonard davis 2019-06-29 2019-06-30 Between nullFlavo [facility] [id number] Memoria 20:15:16 20:15:16 Visit r Nephrology 35 leonard Barrios 2019-06-11 2019-06-13 Phone nullFlavo MG [id number] Memoria 15:29:54 04:59:59 Message r Nephrology 02 leonard Barrios 2019-06-12 2019-06-12 [place] [id number] Memoria 16:30:00 16:30:00 Pre-Reg r Nephrology 29 leonard davis 2019-06-12 2019-06-12 [place] [id number] Memoria 16:15:00 16:15:00 Pre-Reg r Nephrology 30 leonard davis 2019-06-12 2019-06-12 Ambulatory nullFlavo MG Family 3 [id number] Memoria 15:15:00 15:15:00 Pre-Reg r Medicine 31 leonard Zhang 2019-06-09 2019-06-10 [facility] [id number] [place] 10:05:00 17:55:00 [facility] 2019-05-12 2019-05-14 [facility] [id number] [place] 21:36:00 19:00:00 [facility] 2019-05-12 2019-05-13 Outpatient nullFlavo Urgent [id number] Memoria 20:40:00 04:59:59 r Care 33 l Lise Rameyann 2019-03-27 2019-03-28 Outpatient nullFlavo MG Family 3 [id number] Memoria 15:15:00 04:59:59 r Medicine 32 leonard davis 2019-01-05 2019-01-06 Between nullFlavo MG Family [id number] Memoria 19:00:16 19:00:16 Visit r Medicine 29 leonard Zhang ryan 2019-01-02 2019-01-03 Between nullFlavo MG [id number] Mem[facility] 15:02:37 15:02:37 Visit r Nephrology 27 l Carrillo Zhang n 2019-01-02 2019-01-03 Outpatient nullFlavo [facility] [id number] Memoria 18:45:00 04:59:59 r Nephrology 28 l Carrillo davis 2019-01-02 2019-01-03 Outpatient nullFlavo MG Family 3 [id number] Memoria 14:15:00 04:59:59 r Medicine 22 l Carrillo Zhang n 2018-12-31 2019-01-01 Between nullFlavo [facility] [id number] [place] 23:59:47 23:59:47 Visit r Nephrology 26 l Carrillo davis 2018-12-27 2018-12-28 Between nullFlavo [facility] [id number] Memoria 22:00:33 22:00:33 Visit r Nephrology 24 leonard davis 2018-12-27 2018-12-28 Between nullFlavo [facility] [id number] Memoria 04:48:44 04:48:44 Visit r Nephrology 23 l Carrillo Zhang ryan 2018-11-14 2018-11-14 Ambulatory nullFlavo [facility] [id number] Memoria 20:30:00 20:30:00 Pre-Reg r Nephrology 27 leonard Zhang ryan 2018-11-14 2018-11-14 Ambulatory nullFlavo [facility] [id number] Memoria 18:40:00 18:40:00 Pre-Reg r Nephrology 24 leonard Zhang ryan 2018-11-07 2018-11-07 Ambulatory nullFlavo [facility] [id number] Memoria 15:30:00 15:30:00 Pre-Reg r Internal 25 leonard Vizcaino 2018-07-11 2018-08-10 Ambulatory nullFlavo [facility] [id number] Memoria 12:45:00 12:45:00 Pre-Reg r Internal 23 leonard Vizcaino 2018-07-18 2018-07-19 Outpatient nullFlavo [facility] [id number] Memoria 19:15:00 04:59:59 r Nephrology 26 leonard Zhang ryan 2018-07-18 2018-07-19 [place] [id number] [facility] 18:00:00 04:59:59 r Nephrology 21 l Carrillo Zhang ryan 2018-06-11 2018-06-12 Outpatient nullFlavo [facility] Family 3 [id number] Memoria 18:30:00 04:59:59 r Medicine 20 leonard Zhang n 2018-01-10 2018-01-11 Outpatient nullFlavo [facility] [id number] Memoria 16:00:00 04:59:59 r Nephrology 19 leonard Zhang ryan 2018-01-09 2018-01-10 Outpatient nullFlavo [facility] Family 3 [id number] Memoria 15:00:00 04:59:59 r Medicine 18 l Carrillo Zhang ryan 2017-07-19 2017-07-19 Outpatient [facility] [id number] [facility] 10:40:00 10:40:00 16 leonard Barrios 2017-06-27 2017-06-27 Outpatient [facility] [id number] [facility] 11:30:00 11:30:00 17 leonard Barrios 2017-03-01 2017-03-01 Outpatient [facility]IE [facility] [id number] [facility] 11:40:00 11:40:00 11 leonard Barrios 2016-12-26 2016-12-26 Outpatient [facility] [id number] [facility] 14:30:00 14:30:00 15 leonard Barrios 2016-11-27 2016-11-27 Outpatient [facility] [id number] [facility]oria 10:00:00 10:00:00 08 leonard Barrios 2016-11-17 2016-11-17 Bedded nullFlavo [facility] [id number] Memoria 11:48:35 14:30:00 Outpatient connie Barrios 13 leonard robb 2016-11-09 2016-11-09 Outpatient [facility] [id number] Memoria 13:15:00 13:15:00 14 leonard Barrios 2016-10-18 2016-10-18 Outpatient [facility]IE [facility] [id number] Memoria 09:30:00 09:30:00 12 leonard Barrios 2016-10-18 2016-10-18 Outpatient [facility]IE [facility] [id number] Memoria 09:30:00 09:30:00 13 leonard Barrios 2016-10-12 2016-10-12 Outpatient [facility] [id number] [facility] 10:20:00 10:20:00 09 leonard Barrios 2016-07-13 2016-07-13 Outpatient [facility] [id number] Memoria 13:00:00 13:00:00 04 leonard Denis 2016-05-24 2016-05-24 [id number] [facility] 11:15:00 11:15:00 06 leonard Denis 2016-04-13 2016-05-13 OP Therapy nullFlavo SMR [id number] Memoria 13:00:00 04:59:00 Patients r Girish 03 l Benji Barrios 2016-03-14 2016-04-13 OP Therapy nullFlavo SMR [id number] Memoria 17:39:00 04:59:00 Patients r Girish 02 l Benji Barrios 2016-03-09 2016-04-08 OP Therapy nullFlavo SMR Sugar [id number] Memoria 19:00:00 04:59:00 Patients r [place] 01 leonard Denis 2016-03-13 2016-03-14 Outpt Diag nullFlavo [facility] [id number] Memoria 16:14:00 04:59:00 Services r Outpatient 04 l Imaging Denis Reinbeck 2016-02-08 2016-03-09 OP Therapy nullFlavo SMR [place] [id number] Memoria 19:00:00 04:59:00 Patients r [place] 00 leonard Denis 2016-03-02 2016-03-02 Outpatient IE IE [id number] Memoria 10:20:00 10:20:00 01 leonard Denis 2016-02-29 2016-03-01 Outpt Diag nullFlavo [facility] [id number] Memoria 14:59:00 04:59:00 Services r Outpatient 03 l Imaging Denis Cervantesy 2016-01-20 2016-01-21 Outpt Diag nullFlavo [facility] [id number] Memoria 18:11:00 04:59:00 Services r Outpatient 01 l Imaging [place] Reinbeck 2015-12-30 2015-12-30 Outpatient nullFlavo [facility] [id number] Memoria 12:50:31 19:25:00 r leonard Denis 2015-11-30 2015-12-01 Outpt Diag nullFlavo [facility] [id number] Memoria 12:58:00 05:59:00 Services r Outpatient 00 l Imaging [place] Reinbeck 2015-11-19 2015-11-19 [facility] [id number] Memoria 10:15:00 10:15:00 02 leonard Barrios 2015-09-02 2015-09-[address] [facility] [id number] Memoria 11:30:00 11:30:00 00 l Denis 2013-12-18 2013-12-18 Outpatient Gio [facility] [id number] Memoria 01:16:00 05:59:00 r Denis [id number] l [place] 1 Karen nn 2013-12-17 2013-12-17 Outpatient nullFlavo [id number] Memoria 19:16:00 19:16:00 r [place] 01 l Denis 2013-12-02 2013-12-02 Outpatient nullFlavo [id number] Memoria 19:43:00 19:43:00 r [place] 00 l Denis Results Test Description Test Time Test Comments Results Result Comments Source SARS-CoV-2 (COVID-19) RNA [Presence] in Respiratory sp ecimen by 2021-07-14 22:34:30 DANIEL with probe detection Test Item Value Reference Range Interpretation Comme nts SARS-CoV-2 (COVID-19) RNA [Presence] in Respiratory Not detected No t-Detected specimen by DANIEL with probe detection (test code = 05332-7) Whether patient is employed in a healthcare setting (test code = 58248-3) Whether the patient has symptoms related to condition of interest (test code = 41726-1) Patient was hospitalized because of this condition (test code = 10258-0) Whether the patient was admitted to intensive care unit (ICU) for condition of interest (test code = 49088-3) Whether patient resides in a congregate care setting (test code = 80685-5) SARS-CoV-2 (COVID-19) RNA [Presence] in Respiratory specimen by DANIEL with probe [id number] 22:35:42 Test Item Value Reference Range Interpretation Comments SARS-CoV-2 (COVID-19) RNA Not detected Not-Detected [Presence] in Respiratory specimen by DANIEL with probe detection (test code = 11833-1) Whether patient is employed in a healthcare setting (test code = 81235-4) Whether the patient has symptoms related to condition of interest (test code = 54974-6) Patient was hospitalized because of this condition (test code = 16480-2) Whether the patient was admitted to intensive care unit (ICU) for condition of interest (test code = 44386-9) Whether patient resides in a congregate care setting (test code = 21187-6) SARS-CoV-2 (COVID-19) RNA [Presence] in Respiratory specimen by DANIEL with probe [id number] 22:46:10 Test Item Value Reference Range Interpretation Comments SARS-CoV-2 (COVID-19) RNA Not detected Not-Detected [Presence] in Respiratory specimen by DANIEL with probe detection (test code = 91303-5) Whether patient is employed in a healthcare setting (test code = 21720-0) Whether the patient has symptoms related to condition of interest (test code = 15539-1) Patient was hospitalized because of this condition (test code = 60094-7) Whether the patient was admitted to intensive care unit (ICU) for condition of interest (test code = 80618-8) Whether patient resides in a congregate care setting (test code = 65872-3) SARS-CoV-2 (COVID-19) RNA [Presence] in Respiratory specimen by DANIEL with probe sufxrdqtq6171-07-25 01:54:24 Test Item Value Reference Range Interpretation Comments SARS-CoV-2 (COVID-19) RNA Not detected Not-Detected [Presence] in Respiratory specimen by DANIEL with probe detection (test code = 48708-2) Whether patient is employed in a healthcare setting (test code = 62057-6) Whether the patient has symptoms related to condition of interest (test code = 25207-0) Patient was hospitalized because of this condition (test code = 92920-3) Whether the patient was admitted to intensive care unit (ICU) for condition of interest (test code = 76700-5) Whether patient resides in a congregate care setting (test code = 66444-3) SARS-CoV-2 (COVID-19) RNA [Presence] in Respiratory specimen by DANIEL with probe mcnekqddr3747-13-92 21:44:06 Test Item Value Reference Range Interpretation Comments SARS-CoV-2 (COVID-19) RNA Not detected Not-Detected [Presence] in Respiratory specimen by DANIEL with probe detection (test code = 55845-1) Whether patient is employed in a healthcare setting (test code = 08142-0) Whether the patient has symptoms related to condition of interest (test code = 73857-0) Patient was hospitalized because of this condition (test code = 49837-9) Whether the patient was admitted to intensive care unit (ICU) for condition of interest (test code = 00688-6) Whether patient resides in a congregate care setting (test code = 39235-5) SARS-CoV-2 (COVID-19) RNA [Presence] in Respiratory specimen by DANIEL with probe lpxjizyze6262-62-30 00:36:59 Test Item Value Reference Range Interpretation Comments SARS-CoV-2 (COVID-19) RNA Not detected Not-Detected [Presence] in Respiratory specimen by DANIEL with probe detection (test code = 65608-6) SARS-CoV-2 (COVID-19) RNA [Presence] in Respiratory specimen by DANIEL with probe [id number] 17:35:35 Test Item Value Reference Range Interpretation Comments SARS-CoV-2 (COVID-19) RNA Not detected Not-Detected [Presence] in Respiratory specimen by DANIEL with probe detection (test code = 11100-8) SARS-CoV-2 (COVID-19) RNA [Presence] in Respiratory specimen by DANIEL with probe lgkdcriag4271-55-83 18:03:30 Test Item Value Reference Range Interpretation Comments SARS-CoV-2 (COVID-19) RNA Not detected Not-Detected [Presence] in Respiratory specimen by DANIEL with probe detection (test code = 30571-7) SARS-CoV-2 (COVID-19) RNA [Presence] in Respiratory specimen by DANIEL with probe wgrmxsclh1136-80-27 10:06:03 Test Item Value Reference Range Interpretation Comments SARS-CoV-2 (COVID-19) RNA Not detected Not-Detected [Presence] in Respiratory specimen by DANIEL with probe detection (test code = 08233-5) SARS-CoV-2 (COVID-19) RNA [Presence] in Respiratory specimen by DANIEL with probe pdkakrfub8994-77-29 05:11:58 Test Item Value Reference Range Interpretation Comments SARS-CoV-2 (COVID-19) RNA Not detected Not-Detected [Presence] in Respiratory specimen by DANIEL with probe detection (test code = 62654-0) SARS-CoV-2 (COVID-19) RNA [Presence] in Respiratory specimen by DANIEL with probe nujlzqzmx5783-74-55 03:34:16 Test Item Value Reference Range Interpretation Comments SARS-CoV-2 (COVID-19) RNA Not detected Not-Detected [Presence] in Respiratory specimen by DANIEL with probe detection (test code = 03532-1) SARS-CoV-2 (COVID-19) RNA [Presence] in Respiratory specimen by DANIEL with probe [id number] 10:06:41 Test Item Value Reference Range Interpretation Comments SARS-CoV-2 (COVID-19) RNA Not detected Not-Detected [Presence] in Respiratory specimen by DANIEL with probe detection (test code = 45984-3) [id number] 12:33:00 Test Item Value Reference Range Interpretation Comments Chol (test code = Chol) 129 [facility]pp[facility]MXHXZV7798-54-50 12:33:00 Test Item Value Reference Range Interpretation Comments HDL (test code = HDL) 37 [facility] HospitalMfpuzimKBYHZC5837-94-87 12:33:00 Test Item Value Reference Range Interpretation Comments Trig (test code = Trig) 76 [facility] HospitalCjltymkNLTAVC3946-65-60 12:33:00 Test Item Value Reference Range Interpretation Comments LDL (Calculated) (test code = LDL 76 (Calculated)) [facility] HospitalTgcnogyYWATZI1825-72-52 12:33:00 Test Item Value Reference Range Interpretation Comments CHD Risk (test code = CHD Risk) 3.5 [facility] HospitalUnenozwWNMECM0833-47-20 12:33:00 Test Item Value Reference Range Interpretation Comments Non HDL Chol (test code = Non HDL Chol) 92 [facility] [place] [id number] 14:47:00 Test Item Value Reference Range Interpretation Comments Vitamin D, 25-OH, Total (test code = 37 30-100 Vitamin D, 25-OH, Total) [facility] [place] [id number] 14:47:00 Test Item Value Reference Range Interpretation Comments U Creat mg/dL (test code = U Creat 114 20-275 mg/dL) [facility] [employer] [id number] 14:47:00 Test Item Value Reference Range Interpretation Comments U Prot/Creat (test code = U Prot/Creat) 430 21-161 [facility] [place] [id number] 14:47:00 Test Item Value Reference Range Interpretation Comments U Prot/Creat (test code = U 0.430 1 0.021-0.161 Prot/Creat) [facility]2020-08-06 14:47:00 Test Item Value Reference Range Interpretation Comments U Protein (test code = U Protein) 49 5-24 [place] 569940-08-06 14:47:00 Test Item Value Reference Range Interpretation Comments Glucose Lvl (test code = Glucose Lvl) 103 65-99 [place] 569940-08-06 14:47:00 Test Item Value Reference Range Interpretation Comments BUN (test code = BUN) 24 7-25 [place] 569940-08-06 14:47:00 Test Item Value Reference Range Interpretation Comments Creatinine Lvl (test code = Creatinine 1.32 0.50-0.99 Lvl) [place] 569940-08-06 14:47:00 Test Item Value Reference Range Interpretation Comments eGFR NON-AFR. [place] (test code = 43 eGFR NON-AFR. [place]) [facility]2020-08-06 14:47:00 Test Item Value Reference Range Interpretation Comments eGFR (test code = eGFR 50 ) [place] 569940-08-06 14:47:00 Test Item Value Reference Range Interpretation Comments B/C Ratio (test code = B/C Ratio) 18 6-22 [place] 569940-08-06 14:47:00 Test Item Value Reference Range Interpretation Comments Sodium Lvl (test code = Sodium Lvl) 138 135-146 [place] 569940-08-06 14:47:00 Test Item Value Reference Range Interpretation Comments Potassium Lvl (test code = Potassium 4.4 3.5-5.3 Lvl) [place] 569940-08-06 14:47:00 Test Item Value Reference Range Interpretation Comments Chloride Lvl (test code = Chloride Lvl) 102 98-110 [place] 569940-08-06 14:47:00 Test Item Value Reference Range Interpretation Comments CO2 (test code = CO2) 30 20-32 [place] 569940-08-06 14:47:00 Test Item Value Reference Range Interpretation Comments Calcium Lvl (test code = Calcium Lvl) 9.4 8.6-10.4 [place] 569940-08-06 14:47:00 Test Item Value Reference Range Interpretation Comments Phosphorus (test code = Phosphorus) 4.8 2.5-4.5 [facility]2020-08-06 14:47:00 Test Item Value Reference Range Interpretation Comments Albumin Lvl (test code = Albumin Lvl) 3.9 3.6-5.1 [facility]TL[facility]89[facility] 14:47:00 Test Item Value Reference Range Interpretation Comments Plt Count Estimated (test code = DECREASED Plt Count Estimated) [facility]JppmgygLGRWIOMOXM7337-43-67 14:47:00 Test Item Value Reference Range Interpretation Comments WBC X 10x3 (test code = WBC X 10x3) 7.2 3.8-10.8 [facility] TexasSqoeqexMVMDMICWVH9718-79-08 14:47:00 Test Item Value Reference Range Interpretation Comments RBC X 10x6 (test code = RBC X 10x6) 3.71 3.80-5.10 [facility] TexasMdjmlzxLRJYMMDHDT0542-96-06 14:47:00 Test Item Value Reference Range Interpretation Comments Hgb (test code = Hgb) 10.7 11.7-15.5 [facility]XfosxwaNXNUWGBDGN2919-25-34 14:47:00 Test Item Value Reference Range Interpretation Comments Hct (test code = Hct) 33.9 35.0-45.0 [facility] TexasTqnmwouENTUUCGLYS3183-20-10 14:47:00 Test Item Value Reference Range Interpretation Comments MCV (test code = MCV) 91.4 80.0-100.0 [facility] TexasZurlqqbYONUMSDLYA9082-85-48 14:47:00 Test Item Value Reference Range Interpretation Comments MCH (test code = MCH) 28.8 pg 27.0-33.0 [facility] TexasEbhntupEUNWRSJIEQ7386-43-19 14:47:00 Test Item Value Reference Range Interpretation Comments MCHC (test code = MCHC) 31.6 32.0-36.0 [facility]HrebtdjGZGJNUAOTI2791-40-50 14:47:00 Test Item Value Reference Range Interpretation Comments RDW (test code = RDW) 13.9 11.0-15.0 [facility]PzjetmsPVMLKLTCLQ3361-65-98 14:47:00 Test Item Value Reference Range Interpretation Comments Platelet (test code = Platelet) 110 140-400 [facility]CqwvsitADLTHGOTMQ7225-02-24 14:47:00 Test Item Value Reference Range Interpretation Comments MPV (test code = MPV) 11.7 7.5-12.5 [place] 414290-08-06 14:47:00 Test Item Value Reference Range Interpretation Comments Neutrophils # (test code = Neutrophils 5414 6216-2419 #) [facility]WfwlbjkBTZZBFVPPK7229-55-37 14:47:00 Test Item Value Reference Range Interpretation Comments Lymphocytes # (test code = Lymphocytes 4328 970-2670 #) [facility]NgwtbtnRQZZUWAXLQ9663-65-68 14:47:00 Test Item Value Reference Range Interpretation Comments Monocytes # (test code = Monocytes #) 461 200-950 [facility]ieXvnqxkkIKCIMVLUXX6617-92-87 14:47:00 Test Item Value Reference Range Interpretation Comments Eosinophils # (test code = Eosinophils 122 15-500 #) [facility] HospitalQftimitXKLOHKHHTJ1989-20-50 14:47:00 Test Item Value Reference Range Interpretation Comments Basophils # (test code 50 See_Comment [Aut omated message] The = Basophils #) system which generated this result tra nsmitted reference range : <=200. The reference r edy was not used to int erpret this result as normal/abnormal . [facility] HospitalJtwsnivJTTXJIBFVC5614-69-22 14:47:00 Test Item Value Reference Range Interpretation Comments Segs (test code = Segs) 75.2 [facility] HospitalFbgfiwkDSBDXWRVBG7569-89-60 14:47:00 Test Item Value Reference Range Interpretation Comments Lymphocytes (test code = Lymphocytes) 16.0 [facility] HospitalUphvrwnJQBAVPCDHE8075-91-63 14:47:00 Test Item Value Reference Range Interpretation Comments Monocytes (test code = Monocytes) 6.4 [facility] HospitalUnxxuvxILFWFPNUFM2506-47-06 14:47:00 Test Item Value Reference Range Interpretation Comments Eosinophils (test code = Eosinophils) 1.7 [facility] HospitalJesiiutGZCRIEDWQC1349-62-71 14:47:00 Test Item Value Reference Range Interpretation Comments Basophils (test code = Basophils) 0.7 [facility] PMJXZHW8424-24-95 14:47:00 Test Item Value Reference Range Interpretation Comments Result 2 (Urine Culture) See Result Comment (test code = Result 2 (Urine Culture)) [facility]ann[facility] [id number] 14:47:00 Test Item Value Reference Range Interpretation Comments UA Color (test code = UA Color) YELLOW [facility] [id number] 14:47:00 Test Item Value Reference Range Interpretation Comments UA Turbidity (test code = UA CLOUDY Turbidity) [facility] [id number] 14:47:00 Test Item Value Reference Range Interpretation Comments UA Spec Grav (test code = UA Spec 1.017 1 1.001-1.035 Grav) [facility] [id number] 14:47:00 Test Item Value Reference Range Interpretation Comments UA pH (test code = UA pH) 5.5 1 5.0-8.0 [facility] [id number] 14:47:00 Test Item Value Reference Range Interpretation Comments UA Glucose (test code = UA Glucose) NEGATIVE [facility] [id number] 14:47:00 Test Item Value Reference Range Interpretation Comments UA Bili (test code = UA Bili) NEGATIVE [facility] [id number] 14:47:00 Test Item Value Reference Range Interpretation Comments UA Ketones (test code = UA Ketones) NEGATIVE [facility] [id number] 14:47:00 Test Item Value Reference Range Interpretation Comments UA Blood (test code = UA Blood) 1+ [facility] [id number] 14:47:00 Test Item Value Reference Range Interpretation Comments UA Protein (test code = UA Protein) 1+ [facility] [id number] 14:47:00 Test Item Value Reference Range Interpretation Comments UA Nitrite (test code = UA Nitrite) POSITIVE [facility] [id number] 14:47:00 Test Item Value Reference Range Interpretation Comments UA Leuk Est (test code = UA Leuk Est) 2+ [facility] [id number] 14:47:00 Test Item Value Reference Range Interpretation Comments UA WBC (test code = UA WBC) > OR = 60 [facility] [id number] 14:47:00 Test Item Value Reference Range Interpretation Comments UA RBC (test code = UA RBC) 0-2 [facility] [id number] 14:47:00 Test Item Value Reference Range Interpretation Comments UA Sq Epi (test code = UA Sq Epi) NONE SEEN [facility] [id number] 14:47:00 Test Item Value Reference Range Interpretation Comments UA Bacteria (test code = UA Bacteria) MANY [facility] [id number] 14:47:00 Test Item Value Reference Range Interpretation Comments UA Hyal Cast (test code = UA Hyal NONE SEEN Cast) [facility] [id number] 14:47:00 Test Item Value Reference Range Interpretation Comments UA Reflex (test code CULTURE INDICATED - = UA Reflex) RESULTS TO FOLLOW [facility] [id number] 14:47:00 Test Item Value Reference Range Interpretation Comments U Creat mg/dL (test code = U Creat 114 20-275 mg/dL) [facility] VGHM3298-12-11 14:47:00 Test Item Value Reference Range Interpretation Comments U Alb (test code = U Alb) 16.7 [facility] [id number] 14:47:00 Test Item Value Reference Range Interpretation Comments U Alb/Crea (test code = U Alb/Crea) 146 [facility] PROTEIN ELECTROPHORESIS-24HR [id number] 08:01:00 Test Item Value Reference Range Interpretation Comments CREATININE, 24 HOUR 1.45 g/24 h 0.50-2.15 URINE (test code = 85907872) PROTEIN/CREATININE 292 mg/g creat < OR = 114 H RATION (test code = 43135447) PROTEIN, TOTAL 24 HR UR 424 mg/24 h <150 H TEST PERFORMED (test code = 80986211) AT:[facility] IN [address] [id number] BOYCE MD ALBUMIN (test code = 35 % 79009254) ZIJFB-1-EBEHHRGAQ (test 10 % code = 99811068) YUFMN-1-PWFDOZOLX (test 12 % code = 99882505) BETA GLOBULINS (test 25 % code = 01368856) GAMMA GLOBULINS (test 18 % code = 50955709) INTERPRETATION (test Albumin and code = 39015430) various dann bulin fractions detected on proteinelectrop ho resis. No abnormal protei n bands (Bence-Jonespro te inuria) detected.TEST PERFORMED AT:[facility] IN [address] [place] [address]JUJTVNIECY BOYCE MD NEUTROPHIL CYTOPLASMIC [id number] 05:19:00 Test Item Value Reference Range Interpretation Comments ANCA SCREEN (test NEGATIVE NEGATIVE ANCA Scree n includes code = 25134304) evaluation for p-ANCA, c-ANCA andatypi alexandre p-ANCA. A positive ANCA screen reflexes to tit erand pattern(s), e.g ., cytoplasmic pat tern (c-ANCA),perinu clear pattern (p-ANCA ), or atypical p-ANCA pattern.c-ANCA and p-ANCA are observed in vasculitis, whereasatypical p-ANCA is observed in IBD (Inflammatory BowelDisease). Atypical p-ANCA is detec yahir in about 55% to 80% ofpa tients with ulcerative coli tis but only 5% to 25% ofpat ients with Crohn's disease .TEST PERFORMED AT:[employer] [id number] [place] [address]PSHCCOSCAR EISENBERG MD,PHD ,MICHI COMPREHENSIVE METABOLIC [id number] 06:25:00 Test Item Value Reference Range Interpretation Comments GLUCOSE (test code = 06D) 115 mg/dL 75-100 H SODIUM (test code = 01A) 137 mmol/L 136-145 POTASSIUM (test code = 01B) 3.3 mmol/L 3.6-5.1 L CHLORIDE (test code = 04A) 97 mmol/L 98-107 L CO2 (test code = 02A) 32 mmol/L 22-32 ANION GAP (test code = ANG) 11.3 mmol/L BUN (test code = 05D) 36 mg/dL 7-18 H CREATININE (test code = 03E) 1.4 mg/dL 0.4-1.1 H BUN/CREA (test code = BCR) 25 12-20 H CALCIUM (test code = 09D) 8.8 mg/dL 8.3-9.5 BILI TOTAL (test code = 11A) 1.2 mg/dL 0.2-1.0 H PROTEIN (test code = 07D) 6.5 g/dL 6.4-8.2 ALBUMIN (test code = 08D) 2.9 g/dL 3.5-4.8 L GLOBULIN (test code = GLB) 3.6 g/dL 1.5-3.8 ALB/GLOB (test code = AGRR) 0.8 1.0-2.6 L ALK PHOS (test code = 35A) 97 IU/L 42-121 AST (test code = 30A) 15 IU/L <=42 ALT (test code = 31A) 35 IU/L <=78 CBC (INCLUDES AUTOMATED DIFFERENTIAL)2019-06-10 06:06:00 Test Item Value Reference Range Interpretation Comments WBC (test code = WBC) 6.9 10\S\3/uL 4.5-11.0 RBC (test code = RBC) 3.56 10\S\6/uL 4.20-5.60 L HGB (test code = HBG) 10.4 g/dL 12.0-15.5 L HCT (test code = HCT) 32.1 % 35.0-44.0 L MCV (test code = MCV) 90.2 fL 81.0-99.0 MCH (test code = MCH) 29.2 pg 27.0-31.0 MCHC (test code = MCHC) 32.4 g/dL 32.0-36.0 RDW (test code = RDW) 15.0 % 11.5-14.5 H PLT (test code = PLT) 158 10\S\3/uL 130-400 MPV (test code = MPV) 10.7 fL 9.4-12.4 NEUTROP # (test code = NE#) 4.4 10\S\3/uL 1.6-8.0 LYMPH # (test code = LY#) 1.8 10\S\3/uL 1.1-3.5 MONOCYTE # (test code = MO#) 0.5 10\S\3/uL 0.0-1.1 EOSINOPH # (test code = EO#) 0.2 10\S\3/uL 0.0-0.7 BASOPHIL # (test code = BA#) 0.0 10\S\3/uL 0.0-0.3 IG # (test code = IG#) 0.03 10\S\3/uL 0.00-0.06 NRBC # (test code = NRBC#) 0.00 10\S\3/uL 0.00-0.01 NEUTROPH % (test code = NE%) 64.0 % 35.0-73.0 LYMPH % (test code = LY%) 26.1 % 20.0-55.0 MONO % (test code = MO%) 6.5 % 2.5-10.0 EOSINOPH % (test code = EO%) 2.6 % 0.0-5.0 BASOPHIL % (test code = BA%) 0.4 % 0.0-2.0 IG % (test code = IG%) 0.4 % 0.0-0.8 NRBC% (test code = NRBC%) 0.0 % 0.0-0.2 MANDIFF (test code = MDIFF) NO NO RBC MORPH (test code = RBCMOR) NORMAL URINE [id number] 09:53:00 Test Item Value Reference Range Interpretation Comments Isolate 1 (test code = Proteus mirabilis A ISO1) ampicillin (test code = am) ug/mL S ampicillin/sulbactam (test ug/mL S code = ams) piperacillin/tazobactam ug/mL S (test code = tzp) ceftazidime (test code = ug/mL S renee) ceftriaxone1 (test code = ug/mL S ctr) cefepime (test code = fep) ug/mL S aztreonam (test code = azm) ug/mL S ertapenem (test code = etp) ug/mL S meropenem (test code = mem) ug/mL S gentamicin (test code = gm) ug/mL S tobramycin (test code = ug/mL S tob) levofloxacin (test code = ug/mL S lev) trimethoprim/sulfamethoxazo ug/mL S le (test code = sxt) PARTHYROID HORMONE (INTACT)2019-06-09 08:24:00 Test Item Value Reference Range Interpretation Comments PTH INTACT (test code 166.6 pg/mL 18.4-80.1 H = A85) Ref Range Change Please note the (test code = REF change in reference RANGE) range VITAMIN D TOTAL 25 (OH)2019-06-09 07:15:00 Test Item Value Reference Range Interpretation Comments VITAMIN D 25(OH) (test code = VD) 36.0 ng/mL 30.0-100.0 SERUM PROTEIN [id number] 06:20:00 Test Item Value Reference Range Interpretation Comments PROTEIN TOTAL (test 5.7 g/dL 6.1-8.1 L TEST PER FORMED AT:QUEST code = 88055000) DIAGNOSTICS -[id number] [facility] [place] [address]NTTYDNIECY BOYCE MD ALBUMIN (test code = 3.2 g/dL 3.8-4.8 L [id number]) [id number]-[id number] 0.4 g/dL 0.2-0.3 H (test code = 41749350) [id number]-4-LWBBSOGOY 0.8 g/dL 0.5-0.9 (test code = 12759643) BETA 1 GLOBULIN (test 0.5 g/dL 0.4-0.6 code = 17475623) BETA 2 GLOBULIN (test 0.2 g/dL 0.2-0.5 code = 59917317) GAMMA GLOBULINS (test 0.6 g/dL 0.8-1.7 L code = 67395532) INTERPRETATION (test Pattern consistent with code = 82270421) an acute ph ase reactionConsist ent with hypogammaglobul inemia. Serum free ligh tchains or urine immuno fixation should be consi dered ifplasma cell d yscrasias are a possible clinicaldiagnos is.TEST PERFORMED AT:[facility] [id number] [facility] [place] [address]GDJGFNIECY BOYCE MD [id number] 06:13:00 Test Item Value Reference Range Interpretation Comments MAGNESIUM (test code = 48A) 1.7 mg/dL 1.8-2.4 L COMPREHENSIVE METABOLIC [id number] 06:13:00 Test Item Value Reference Range Interpretation Comments GLUCOSE (test code = 06D) 110 mg/dL 75-100 H SODIUM (test code = 01A) 140 mmol/L 136-145 POTASSIUM (test code = 01B) 3.1 mmol/L 3.6-5.1 L CHLORIDE (test code = 04A) 96 mmol/L 98-107 L CO2 (test code = 02A) 34 mmol/L 22-32 H ANION GAP (test code = ANG) 13.1 mmol/L BUN (test code = 05D) 33 mg/dL 7-18 H CREATININE (test code = 03E) 1.5 mg/dL 0.4-1.1 H BUN/CREA (test code = BCR) 22 12-20 H CALCIUM (test code = 09D) 9.1 mg/dL 8.3-9.5 BILI TOTAL (test code = 11A) 1.4 mg/dL 0.2-1.0 H PROTEIN (test code = 07D) 7.0 g/dL 6.4-8.2 ALBUMIN (test code = 08D) 3.2 g/dL 3.5-4.8 L GLOBULIN (test code = GLB) 3.8 g/dL 1.5-3.8 ALB/GLOB (test code = AGRR) 0.8 1.0-2.6 L ALK PHOS (test code = 35A) 111 IU/L 42-121 AST (test code = 30A) 18 IU/L <=42 ALT (test code = 31A) 43 IU/L <=78 PHOSPHORUS (P04)2019-06-09 06:13:00 Test Item Value Reference Range Interpretation Comments PHOSPHORUS (test code = 43D) 4.0 mg/dL 2.7-4.6 CBC (INCLUDES AUTOMATED DIFFERENTIAL)2019-06-09 05:48:00 Test Item Value Reference Range Interpretation Comments WBC (test code = WBC) 9.4 10\S\3/uL 4.5-11.0 RBC (test code = RBC) 3.73 10\S\6/uL 4.20-5.60 L HGB (test code = HBG) 10.8 g/dL 12.0-15.5 L HCT (test code = HCT) 33.8 % 35.0-44.0 L MCV (test code = MCV) 90.6 fL 81.0-99.0 MCH (test code = MCH) 29.0 pg 27.0-31.0 MCHC (test code = MCHC) 32.0 g/dL 32.0-36.0 RDW (test code = RDW) 15.1 % 11.5-14.5 H PLT (test code = PLT) 189 10\S\3/uL 130-400 MPV (test code = MPV) 11.8 fL 9.4-12.4 NEUTROP # (test code = NE#) 7.0 10\S\3/uL 1.6-8.0 LYMPH # (test code = LY#) 1.6 10\S\3/uL 1.1-3.5 MONOCYTE # (test code = MO#) 0.7 10\S\3/uL 0.0-1.1 EOSINOPH # (test code = EO#) 0.1 10\S\3/uL 0.0-0.7 BASOPHIL # (test code = BA#) 0.0 10\S\3/uL 0.0-0.3 IG # (test code = IG#) 0.06 10\S\3/uL 0.00-0.06 NRBC # (test code = NRBC#) 0.00 10\S\3/uL 0.00-0.01 NEUTROPH % (test code = NE%) 74.5 % 35.0-73.0 H LYMPH % (test code = LY%) 16.5 % 20.0-55.0 L MONO % (test code = MO%) 7.0 % 2.5-10.0 EOSINOPH % (test code = EO%) 1.1 % 0.0-5.0 BASOPHIL % (test code = BA%) 0.3 % 0.0-2.0 IG % (test code = IG%) 0.6 % 0.0-0.8 NRBC% (test code = NRBC%) 0.0 % 0.0-0.2 MANDIFF (test code = MDIFF) NO NO RBC MORPH (test code = RBCMOR) NORMAL COMPREHENSIVE METABOLIC [id number] 05:30:00 Test Item Value Reference Range Interpretation Comments GLUCOSE (test code = 06D) 122 mg/dL 75-100 H SODIUM (test code = 01A) 140 mmol/L 136-145 POTASSIUM (test code = 01B) 3.8 mmol/L 3.6-5.1 CHLORIDE (test code = 04A) 100 mmol/L 98-107 CO2 (test code = 02A) 32 mmol/L 22-32 ANION GAP (test code = ANG) 11.8 mmol/L BUN (test code = 05D) 29 mg/dL 7-18 H CREATININE (test code = 03E) 1.5 mg/dL 0.4-1.1 H BUN/CREA (test code = BCR) 20 12-20 CALCIUM (test code = 09D) 9.0 mg/dL 8.3-9.5 BILI TOTAL (test code = 11A) 1.3 mg/dL 0.2-1.0 H PROTEIN (test code = 07D) 7.1 g/dL 6.4-8.2 ALBUMIN (test code = 08D) 3.5 g/dL 3.5-4.8 GLOBULIN (test code = GLB) 3.6 g/dL 1.5-3.8 ALB/GLOB (test code = AGRR) 1.0 1.0-2.6 ALK PHOS (test code = 35A) 119 IU/L 42-121 AST (test code = 30A) 22 IU/L <=42 ALT (test code = 31A) 49 IU/L <=78 CBC (INCLUDES AUTOMATED DIFFERENTIAL)2019-06-08 05:18:00 Test Item Value Reference Range Interpretation Comments WBC (test code = WBC) 9.0 10\S\3/uL 4.5-11.0 RBC (test code = RBC) 3.94 10\S\6/uL 4.20-5.60 L HGB (test code = HBG) 11.4 g/dL 12.0-15.5 L HCT (test code = HCT) 35.8 % 35.0-44.0 MCV (test code = MCV) 90.9 fL 81.0-99.0 MCH (test code = MCH) 28.9 pg 27.0-31.0 MCHC (test code = MCHC) 31.8 g/dL 32.0-36.0 L RDW (test code = RDW) 14.8 % 11.5-14.5 H PLT (test code = PLT) 164 10\S\3/uL 130-400 MPV (test code = MPV) 11.6 fL 9.4-12.4 NEUTROP # (test code = NE#) 6.8 10\S\3/uL 1.6-8.0 LYMPH # (test code = LY#) 1.4 10\S\3/uL 1.1-3.5 MONOCYTE # (test code = MO#) 0.6 10\S\3/uL 0.0-1.1 EOSINOPH # (test code = EO#) 0.1 10\S\3/uL 0.0-0.7 BASOPHIL # (test code = BA#) 0.0 10\S\3/uL 0.0-0.3 IG # (test code = IG#) 0.06 10\S\3/uL 0.00-0.06 NRBC # (test code = NRBC#) 0.00 10\S\3/uL 0.00-0.01 NEUTROPH % (test code = NE%) 75.6 % 35.0-73.0 H LYMPH % (test code = LY%) 15.9 % 20.0-55.0 L MONO % (test code = MO%) 6.5 % 2.5-10.0 EOSINOPH % (test code = EO%) 0.9 % 0.0-5.0 BASOPHIL % (test code = BA%) 0.4 % 0.0-2.0 IG % (test code = IG%) 0.7 % 0.0-0.8 NRBC% (test code = NRBC%) 0.0 % 0.0-0.2 MANDIFF (test code = MDIFF) NO NO RBC MORPH (test code = RBCMOR) NORMAL URINALYSIS WITH [id number] 06:44:00 Test Item Value Reference Range Interpretation Comments COLOR (test code = COLU) YELLOW YELLOW CLARITY (test code = CLA) CLOUDY CLEAR A GLUCOSE UR (test code = UA NEGATIVE NEGATIVE GLUCOSE) BILI UR (test code = BILE) NEGATIVE NEGATIVE KETONES UR (test code = LOU) NEGATIVE NEGATIVE SP GRAVITY (test code = SPGR) 1.014 1.005-1.030 PH UR (test code = PH) 6.0 4.5-8.0 PROTEIN UR (test code = PU) TRACE NEGATIVE A UROBIL UR (test code = UROQ) 0.2 EU/dL 0.2-1.0 NITRITE UR (test code = NEGATIVE NEGATIVE NITRITE) BLOOD UR (test code = UA BLOOD) TRACE NEGATIVE A LEUK ES UR (test code = LEUK) 2+ NEGATIVE A WBC UR (test code = UWBC) 12 /HPF 0-5 H RBC UR (test code = URBC) 1 /HPF 0-2 EPITH UR (test code = UEPC) FEW /LPF FEW BACTERIA UR (test code = UBACT) MODERATE /HPF NONE A CAST UR (test code = CAST) /LPF NONE CRYSTAL UR (test code = CRYU) / LPF NONE MUCUS UR (test code = MUC) / HPF NONE AMORPH UR (test code = BLANKA) / HPF NONE TRICH UR (test code = UTRICH) /HPF NONE YEAST UR (test code = UY) /HPF NONE SPERM UR (test code = USPERM) /HPF NONE COMPREHENSIVE METABOLIC [id number] 05:24:00 Test Item Value Reference Range Interpretation Comments GLUCOSE (test code = 06D) 105 mg/dL 75-100 H SODIUM (test code = 01A) 138 mmol/L 136-145 POTASSIUM (test code = 01B) 4.0 mmol/L 3.6-5.1 CHLORIDE (test code = 04A) 104 mmol/L 98-107 CO2 (test code = 02A) 25 mmol/L 22-32 ANION GAP (test code = ANG) 13.0 mmol/L BUN (test code = 05D) 29 mg/dL 7-18 H CREATININE (test code = 03E) 1.5 mg/dL 0.4-1.1 H BUN/CREA (test code = BCR) 19 12-20 CALCIUM (test code = 09D) 8.4 mg/dL 8.3-9.5 BILI TOTAL (test code = 11A) 0.7 mg/dL 0.2-1.0 PROTEIN (test code = 07D) 6.2 g/dL 6.4-8.2 L ALBUMIN (test code = 08D) 3.1 g/dL 3.5-4.8 L GLOBULIN (test code = GLB) 3.1 g/dL 1.5-3.8 ALB/GLOB (test code = AGRR) 1.0 1.0-2.6 ALK PHOS (test code = 35A) 104 IU/L 42-121 AST (test code = 30A) 22 IU/L <=42 ALT (test code = 31A) 42 IU/L <=78 CBC (INCLUDES AUTOMATED DIFFERENTIAL)2019-06-07 05:07:00 Test Item Value Reference Range Interpretation Comments WBC (test code = WBC) 8.6 10\S\3/uL 4.5-11.0 RBC (test code = RBC) 3.72 10\S\6/uL 4.20-5.60 L HGB (test code = HBG) 10.8 g/dL 12.0-15.5 L HCT (test code = HCT) 33.7 % 35.0-44.0 L MCV (test code = MCV) 90.6 fL 81.0-99.0 MCH (test code = MCH) 29.0 pg 27.0-31.0 MCHC (test code = MCHC) 32.0 g/dL 32.0-36.0 RDW (test code = RDW) 14.7 % 11.5-14.5 H PLT (test code = PLT) 152 10\S\3/uL 130-400 MPV (test code = MPV) 11.4 fL 9.4-12.4 NEUTROP # (test code = NE#) 6.2 10\S\3/uL 1.6-8.0 LYMPH # (test code = LY#) 1.6 10\S\3/uL 1.1-3.5 MONOCYTE # (test code = MO#) 0.5 10\S\3/uL 0.0-1.1 EOSINOPH # (test code = EO#) 0.2 10\S\3/uL 0.0-0.7 BASOPHIL # (test code = BA#) 0.1 10\S\3/uL 0.0-0.3 IG # (test code = IG#) 0.03 10\S\3/uL 0.00-0.06 NRBC # (test code = NRBC#) 0.00 10\S\3/uL 0.00-0.01 NEUTROPH % (test code = NE%) 72.8 % 35.0-73.0 LYMPH % (test code = LY%) 18.5 % 20.0-55.0 L MONO % (test code = MO%) 5.8 % 2.5-10.0 EOSINOPH % (test code = EO%) 2.0 % 0.0-5.0 BASOPHIL % (test code = BA%) 0.6 % 0.0-2.0 IG % (test code = IG%) 0.3 % 0.0-0.8 NRBC% (test code = NRBC%) 0.0 % 0.0-0.2 MANDIFF (test code = MDIFF) NO NO RBC MORPH (test code = RBCMOR) NORMAL U/S KIDNEY (RENAL)2019-06-06 23:20:42LOCATION: [id number]: 63-year-old female who presents with acute nontraumatic kidney injury.COMMENT:Sonographic imaging of this patient's retroperitoneum was performed.The right kidney measures 9.9 x 5.9 x 6.4 cm with a 13 mm cortical thickness. Acyst is seen in the upper pole measuring 23 x 19 x 19 mm, and a second cyst isseen in the lower pole measuring 18 x 16 x 16 mm.The left kidney measures 9.4 x 5.3 x 5.6 cm with a 11 mm cortical thickness. Nocysts or masses are seen in the left kidney.Cortical echotexture of the kidneys otherwise is unremarkable.There is no evidence of hydronephrosis of either kidney.In the urinary bladder only the left urine jet was observed on the color flowstudy. The bladder otherwise is unremarkable.IMPRESSION:Cystic changes are seen in the upper pole and lower pole ofthis patient'sright kidney. No gross abnormalities are seen elsewhere in either kidney.The urinary bladder is unremarkable. Only the left urine jet was observed onthe color flow study.TROPONIN [id number] 07:14:00 Test Item Value Reference Range Interpretation Comments TROPONIN I (test code = A84) <0.015 ng/mL 0.000-0.045 COMPREHENSIVE METABOLIC [id number] 05:28:00 Test Item Value Reference Range Interpretation Comments GLUCOSE (test code = 06D) 110 mg/dL 75-100 H SODIUM (test code = 01A) 138 mmol/L 136-145 POTASSIUM (test code = 01B) 3.9 mmol/L 3.6-5.1 CHLORIDE (test code = 04A) 106 mmol/L 98-107 CO2 (test code = 02A) 24 mmol/L 22-32 ANION GAP (test code = ANG) 11.9 mmol/L BUN (test code = 05D) 22 mg/dL 7-18 H CREATININE (test code = 03E) 1.5 mg/dL 0.4-1.1 H BUN/CREA (test code = BCR) 15 12-20 CALCIUM (test code = 09D) 8.2 mg/dL 8.3-9.5 L BILI TOTAL (test code = 11A) 0.6 mg/dL 0.2-1.0 PROTEIN (test code = 07D) 6.0 g/dL 6.4-8.2 L ALBUMIN (test code = 08D) 2.9 g/dL 3.5-4.8 L GLOBULIN (test code = GLB) 3.1 g/dL 1.5-3.8 ALB/GLOB (test code = AGRR) 0.9 1.0-2.6 L ALK PHOS (test code = 35A) 96 IU/L 42-121 AST (test code = 30A) 19 IU/L <=42 ALT (test code = 31A) 35 IU/L <=78 CBC (INCLUDES AUTOMATED DIFFERENTIAL)2019-06-06 05:14:00 Test Item Value Reference Range Interpretation Comments WBC (test code = WBC) 7.0 10\S\3/uL 4.5-11.0 RBC (test code = RBC) 3.64 10\S\6/uL 4.20-5.60 L HGB (test code = HBG) 10.6 g/dL 12.0-15.5 L HCT (test code = HCT) 33.5 % 35.0-44.0 L MCV (test code = MCV) 92.0 fL 81.0-99.0 MCH (test code = MCH) 29.1 pg 27.0-31.0 MCHC (test code = MCHC) 31.6 g/dL 32.0-36.0 L RDW (test code = RDW) 14.9 % 11.5-14.5 H PLT (test code = PLT) 145 10\S\3/uL 130-400 MPV (test code = MPV) 11.4 fL 9.4-12.4 NEUTROP # (test code = NE#) 4.2 10\S\3/uL 1.6-8.0 LYMPH # (test code = LY#) 2.1 10\S\3/uL 1.1-3.5 MONOCYTE # (test code = MO#) 0.5 10\S\3/uL 0.0-1.1 EOSINOPH # (test code = EO#) 0.1 10\S\3/uL 0.0-0.7 BASOPHIL # (test code = BA#) 0.0 10\S\3/uL 0.0-0.3 IG # (test code = IG#) 0.04 10\S\3/uL 0.00-0.06 NRBC # (test code = NRBC#) 0.00 10\S\3/uL 0.00-0.01 NEUTROPH % (test code = NE%) 59.7 % 35.0-73.0 LYMPH % (test code = LY%) 30.1 % 20.0-55.0 MONO % (test code = MO%) 7.0 % 2.5-10.0 EOSINOPH % (test code = EO%) 2.0 % 0.0-5.0 BASOPHIL % (test code = BA%) 0.6 % 0.0-2.0 IG % (test code = IG%) 0.6 % 0.0-0.8 NRBC% (test code = NRBC%) 0.0 % 0.0-0.2 MANDIFF (test code = MDIFF) NO NO RBC MORPH (test code = RBCMOR) NORMAL COMPREHENSIVE METABOLIC [id number] 04:58:00 Test Item Value Reference Range Interpretation Comments GLUCOSE (test code = 06D) 112 mg/dL 75-100 H SODIUM (test code = 01A) 143 mmol/L 136-145 POTASSIUM (test code = 01B) 4.4 mmol/L 3.6-5.1 CHLORIDE (test code = 04A) 108 mmol/L 98-107 H CO2 (test code = 02A) 27 mmol/L 22-32 ANION GAP (test code = ANG) 12.4 mmol/L BUN (test code = 05D) 19 mg/dL 7-18 H CREATININE (test code = 03E) 1.4 mg/dL 0.4-1.1 H BUN/CREA (test code = BCR) 14 12-20 CALCIUM (test code = 09D) 8.5 mg/dL 8.3-9.5 BILI TOTAL (test code = 11A) 0.9 mg/dL 0.2-1.0 PROTEIN (test code = 07D) 6.2 g/dL 6.4-8.2 L ALBUMIN (test code = 08D) 2.9 g/dL 3.5-4.8 L GLOBULIN (test code = GLB) 3.3 g/dL 1.5-3.8 ALB/GLOB (test code = AGRR) 0.9 1.0-2.6 L ALK PHOS (test code = 35A) 95 IU/L 42-121 AST (test code = 30A) 19 IU/L <=42 ALT (test code = 31A) 40 IU/L <=78 CBC (INCLUDES AUTOMATED DIFFERENTIAL)2019-06-05 04:51:00 Test Item Value Reference Range Interpretation Comments WBC (test code = WBC) 8.2 10\S\3/uL 4.5-11.0 RBC (test code = RBC) 3.48 10\S\6/uL 4.20-5.60 L HGB (test code = HBG) 10.3 g/dL 12.0-15.5 L HCT (test code = HCT) 32.4 % 35.0-44.0 L MCV (test code = MCV) 93.1 fL 81.0-99.0 MCH (test code = MCH) 29.6 pg 27.0-31.0 MCHC (test code = MCHC) 31.8 g/dL 32.0-36.0 L RDW (test code = RDW) 15.5 % 11.5-14.5 H PLT (test code = PLT) 163 10\S\3/uL 130-400 MPV (test code = MPV) 11.8 fL 9.4-12.4 NEUTROP # (test code = NE#) 5.3 10\S\3/uL 1.6-8.0 LYMPH # (test code = LY#) 2.0 10\S\3/uL 1.1-3.5 MONOCYTE # (test code = MO#) 0.6 10\S\3/uL 0.0-1.1 EOSINOPH # (test code = EO#) 0.2 10\S\3/uL 0.0-0.7 BASOPHIL # (test code = BA#) 0.0 10\S\3/uL 0.0-0.3 IG # (test code = IG#) 0.03 10\S\3/uL 0.00-0.06 NRBC # (test code = NRBC#) 0.00 10\S\3/uL 0.00-0.01 NEUTROPH % (test code = NE%) 65.5 % 35.0-73.0 LYMPH % (test code = LY%) 24.2 % 20.0-55.0 MONO % (test code = MO%) 7.2 % 2.5-10.0 EOSINOPH % (test code = EO%) 2.2 % 0.0-5.0 BASOPHIL % (test code = BA%) 0.5 % 0.0-2.0 IG % (test code = IG%) 0.4 % 0.0-0.8 NRBC% (test code = NRBC%) 0.0 % 0.0-0.2 MANDIFF (test code = MDIFF) NO NO CARDIAC [id number] 23:10:00 Test Item Value Reference Range Interpretation Comments TROPONIN I (test code = A84) <0.015 ng/mL 0.000-0.045 U/S VENOUS DOPPLER BALDO LOW [id number] 22:23:14LOCATION: [id number]: 63-year-old female who presents with bilateral leg swelling.COMMENT: Sonogra hazard [facility] imaging of the venous anatomy in both of this patient's legs wasobtained utilizing grayscale, color-flow, and Doppler waveform imagingmodalities.The common femoral veins, superficial femoral veins, popliteal veins, posteriortibial veins, anterior tibial veins, and peroneal veins in both legs wereincluded in the study.The anatomy exhibits normal compressibility on grayscale study. No suspiciousfilling defects are seen on the color flow study. Appropriate waveform responseas are noted on the Doppler study during augmentation maneuvers and duringquiet respiration. IMPRESSION:There is no sonographic evidence of venous thrombosis in either of thispatient's legs. CARDIAC [id number] 16:50:00 Test Item Value Reference Range Interpretation Comments TROPONIN I (test code = A84) <0.015 ng/mL 0.000-0.045 BRAIN NATRIURETIC [id number] 14:39:00 Test Item Value Reference Range Interpretation Comments proBNP (test code = PBNP) 1337 pg/mL 0-125 H THYROID PANEL/SCREEN (TSH)2019-06-04 12:05:00 Test Item Value Reference Range Interpretation Comments TSH (test code = A57) 0.989 uIU/mL 0.358-3.740 [id number] 12:02:00 Test Item Value Reference Range Interpretation Comments CPK (test code = 32A) 98 IU/L 26-192 AMYLASE AND [id number] 12:02:00 Test Item Value Reference Range Interpretation Comments AMYLASE (test code = 10A) 19 U/L 28-100 L LIPASE (test code = 60A) 67 IU/L 73-393 L COMPREHENSIVE METABOLIC [id number] 12:02:00 Test Item Value Reference Range Interpretation Comments GLUCOSE (test code = 06D) 109 mg/dL 75-100 H SODIUM (test code = 01A) 142 mmol/L 136-145 POTASSIUM (test code = 01B) 4.2 mmol/L 3.6-5.1 CHLORIDE (test code = 04A) 109 mmol/L 98-107 H CO2 (test code = 02A) 26 mmol/L 22-32 ANION GAP (test code = ANG) 11.2 mmol/L BUN (test code = 05D) 16 mg/dL 7-18 CREATININE (test code = 03E) 1.3 mg/dL 0.4-1.1 H BUN/CREA (test code = BCR) 13 12-20 CALCIUM (test code = 09D) 8.7 mg/dL 8.3-9.5 BILI TOTAL (test code = 11A) 1.3 mg/dL 0.2-1.0 H PROTEIN (test code = 07D) 6.5 g/dL 6.4-8.2 ALBUMIN (test code = 08D) 3.2 g/dL 3.5-4.8 L GLOBULIN (test code = GLB) 3.3 g/dL 1.5-3.8 ALB/GLOB (test code = AGRR) 1.0 1.0-2.6 ALK PHOS (test code = 35A) 101 IU/L 42-121 AST (test code = 30A) 21 IU/L <=42 ALT (test code = 31A) 41 IU/L <=78 TROPONIN [id number] 11:57:00 Test Item Value Reference Range Interpretation Comments TROPONIN I (test code = A84) <0.015 ng/mL 0.000-0.045 XR CHEST 1 VIEW [id number] 11:55:22EXAM: XR CHEST 1 VIEW PORTABLE.LOCATION: D4.HISTORY: [id number]: Chest pain.COMPARISON: Radiograph dated 05/12/2019.TECHNIQUE: Single AP view of the chest was obtained. FINDINGS:The heart is enlarged in size. Small left pleural effusion and left basilaropacities are present. There is elevation of the right hemidiaphragm. No acuteosseous abnormality is identified.IMPRESSION:Small left pleural effusion with left basilar opacities, which may representatelectasis or infiltrates.Cardiomegaly. PRO TIME AND [id number] 11:43:00 Test Item Value Reference Range Interpretation Comments PT (test code = 13.4 s 9.8-13.6 TT) INR (test code = 1.2 INR) INRH (test code = SUGGESTED INRH) THERAPEUTIC RANGE FOR INR: 2.5 - 3.5 For Patients with Prosthetic Valves or Patients with recurrent Thromboembolic Events 2.0 - 3.0 For Most Other Applications PTT (test code = 30.4 s 20.2-38.0 PTT) PTTH (test code = To monitor the PTTH) effectiveness of heparin, we offer the Anti-Xa (Heparin Assay). It can be used for either unfractionated or LMW Heparin. Order Code is ANTI-XA CBC (INCLUDES AUTOMATED DIFFERENTIAL)2019-06-04 11:36:00 Test Item Value Reference Range Interpretation Comments WBC (test code = WBC) 7.6 10\S\3/uL 4.5-11.0 RBC (test code = RBC) 3.53 10\S\6/uL 4.20-5.60 L HGB (test code = HBG) 10.3 g/dL 12.0-15.5 L HCT (test code = HCT) 33.5 % 35.0-44.0 L MCV (test code = MCV) 94.9 fL 81.0-99.0 MCH (test code = MCH) 29.2 pg 27.0-31.0 MCHC (test code = MCHC) 30.7 g/dL 32.0-36.0 L RDW (test code = RDW) 15.4 % 11.5-14.5 H PLT (test code = PLT) 164 10\S\3/uL 130-400 MPV (test code = MPV) 11.7 fL 9.4-12.4 NEUTROP # (test code = NE#) 5.6 10\S\3/uL 1.6-8.0 LYMPH # (test code = LY#) 1.4 10\S\3/uL 1.1-3.5 MONOCYTE # (test code = MO#) 0.4 10\S\3/uL 0.0-1.1 EOSINOPH # (test code = EO#) 0.1 10\S\3/uL 0.0-0.7 BASOPHIL # (test code = BA#) 0.0 10\S\3/uL 0.0-0.3 IG # (test code = IG#) 0.04 10\S\3/uL 0.00-0.06 NRBC # (test code = NRBC#) 0.00 10\S\3/uL 0.00-0.01 NEUTROPH % (test code = NE%) 73.9 % 35.0-73.0 H LYMPH % (test code = LY%) 18.0 % 20.0-55.0 L MONO % (test code = MO%) 5.7 % 2.5-10.0 EOSINOPH % (test code = EO%) 1.6 % 0.0-5.0 BASOPHIL % (test code = BA%) 0.3 % 0.0-2.0 IG % (test code = IG%) 0.5 % 0.0-0.8 NRBC% (test code = NRBC%) 0.0 % 0.0-0.2 MANDIFF (test code = MDIFF) NO NO RBC MORPH (test code = RBCMOR) NORMAL CBC WITH [id number] 15:29:00 Test Item Value Reference Range Interpretation Comments WBC (test code = WBC) 9.7 10\S\3/uL 4.5-11.0 RBC (test code = RBC) 3.73 10\S\6/uL 4.20-5.60 L HGB (test code = HBG) 11.0 g/dL 12.0-15.5 L HCT (test code = HCT) 34.1 % 35.0-44.0 L MCV (test code = MCV) 91.4 fL 81.0-99.0 MCH (test code = MCH) 29.5 pg 27.0-31.0 MCHC (test code = MCHC) 32.3 g/dL 32.0-36.0 RDW (test code = RDW) 14.2 % 11.5-14.5 PLT (test code = PLT) 116 10\S\3/uL 130-400 L MPV (test code = MPV) 11.8 fL 9.4-12.4 NEUTROP # (test code = NE#) 7.9 10\S\3/uL 1.6-8.0 LYMPH # (test code = LY#) 1.0 10\S\3/uL 1.1-3.5 L MONOCYTE # (test code = 0.6 10\S\3/uL 0.0-1.1 MO#) EOSINOPH # (test code = 0.1 10\S\3/uL 0.0-0.7 EO#) BASOPHIL # (test code = 0.0 10\S\3/uL 0.0-0.3 BA#) IG # (test code = IG#) 0.04 10\S\3/uL 0.00-0.06 NRBC # (test code = NRBC#) 0.00 10\S\3/uL 0.00-0.01 NEUTROPH % (test code = 81.6 % 35.0-73.0 H NE%) LYMPH % (test code = LY%) 10.3 % 20.0-55.0 L MONO % (test code = MO%) 6.4 % 2.5-10.0 EOSINOPH % (test code = 1.0 % 0.0-5.0 EO%) BASOPHIL % (test code = 0.3 % 0.0-2.0 BA%) IG % (test code = IG%) 0.4 % 0.0-0.8 NRBC% (test code = NRBC%) 0.0 % 0.0-0.2 PLT EST (test code = ADEQUATE ADEQUATE PLTEST) PLT MORPH (test code = NORMAL (1.5-3 um) NORMAL PLTMOR) BASIC METABOLIC [id number] 15:26:00 Test Item Value Reference Range Interpretation Comments GLUCOSE (test code = 06D) 118 mg/dL 75-100 H SODIUM (test code = 01A) 136 mmol/L 136-145 POTASSIUM (test code = 01B) 4.2 mmol/L 3.6-5.1 CHLORIDE (test code = 04A) 106 mmol/L 98-107 CO2 (test code = 02A) 24 mmol/L 22-32 ANION GAP (test code = ANG) 10.2 mmol/L BUN (test code = 05D) 38 mg/dL 7-18 H CREATININE (test code = 03E) 1.6 mg/dL 0.4-1.1 H BUN/CREA (test code = BCR) 23 12-20 H CALCIUM (test code = 09D) 9.2 mg/dL 8.3-9.5 CARDIAC [id number] 06:04:00 Test Item Value Reference Range Interpretation Comments TROPONIN I (test code = A84) <0.015 ng/mL 0.000-0.045 BASIC METABOLIC [id number] 05:52:00 Test Item Value Reference Range Interpretation Comments GLUCOSE (test code = 06D) 171 mg/dL 75-100 H SODIUM (test code = 01A) 138 mmol/L 136-145 POTASSIUM (test code = 01B) 4.0 mmol/L 3.6-5.1 CHLORIDE (test code = 04A) 107 mmol/L 98-107 CO2 (test code = 02A) 23 mmol/L 22-32 ANION GAP (test code = ANG) 12.0 mmol/L BUN (test code = 05D) 19 mg/dL 7-18 H CREATININE (test code = 03E) 1.2 mg/dL 0.4-1.1 H BUN/CREA (test code = BCR) 15 12-20 CALCIUM (test code = 09D) 8.5 mg/dL 8.3-9.5 CBC (INCLUDES AUTOMATED DIFFERENTIAL)2019-05-13 05:30:00 Test Item Value Reference Range Interpretation Comments WBC (test code = WBC) 14.0 10\S\3/uL 4.5-11.0 H RBC (test code = RBC) 3.64 10\S\6/uL 4.20-5.60 L HGB (test code = HBG) 10.8 g/dL 12.0-15.5 L HCT (test code = HCT) 33.2 % 35.0-44.0 L MCV (test code = MCV) 91.2 fL 81.0-99.0 MCH (test code = MCH) 29.7 pg 27.0-31.0 MCHC (test code = MCHC) 32.5 g/dL 32.0-36.0 RDW (test code = RDW) 14.0 % 11.5-14.5 PLT (test code = PLT) 143 10\S\3/uL 130-400 MPV (test code = MPV) 11.4 fL 9.4-12.4 NEUTROP # (test code = NE#) 12.1 10\S\3/uL 1.6-8.0 H LYMPH # (test code = LY#) 0.9 10\S\3/uL 1.1-3.5 L MONOCYTE # (test code = MO#) 0.9 10\S\3/uL 0.0-1.1 EOSINOPH # (test code = EO#) 0.0 10\S\3/uL 0.0-0.7 BASOPHIL # (test code = BA#) 0.0 10\S\3/uL 0.0-0.3 IG # (test code = IG#) 0.10 10\S\3/uL 0.00-0.06 H NRBC # (test code = NRBC#) 0.00 10\S\3/uL 0.00-0.01 NEUTROPH % (test code = NE%) 86.2 % 35.0-73.0 H LYMPH % (test code = LY%) 6.3 % 20.0-55.0 L MONO % (test code = MO%) 6.6 % 2.5-10.0 EOSINOPH % (test code = EO%) 0.0 % 0.0-5.0 BASOPHIL % (test code = BA%) 0.2 % 0.0-2.0 IG % (test code = IG%) 0.7 % 0.0-0.8 NRBC% (test code = NRBC%) 0.0 % 0.0-0.2 MANDIFF (test code = MDIFF) NO NO RBC MORPH (test code = RBCMOR) NORMAL CARDIAC [id number] 23:08:00 Test Item Value Reference Range Interpretation Comments TROPONIN I (test code = A84) <0.015 ng/mL 0.000-0.045 CT DISSECTION [id number] 19:26:35Exam: CT thorax PE protocol.Location: H 12History: [id number]: Chest painTechnique: Enhanced spiral slices were taken from the apices of the lungs,through the upper abdomen utilizing a pulmonary embolism protocol. Multiplanarreformations were performed. 100cc of Omnipaque were used. One or more of thefollowing radiation dose reduction techniques was used: automated exposurecontrol, adjustment of mA and/or KV according to patient size, and/orutilization of iterative reconstruction technique.Findings:Nofilling defects are seen in the main pulmonary arteries. The pulmonaryvasculature is normal. No pulmonary venous congestion or arterial hypertensionis seen.The lungs are clear. No infiltration or effusion is seen. No mass or nodule isseen.The mediastinum and the pulmonary lily are normal. Calcified granulomas arenoted. No lymphadenopathy is present. The heart size is normal.No pericardialeffusion is seen.The visualized upper abdominal organs are unremarkable.Impression:1. Negative for pulmonary embolism.2. No acute disease.THYROID PANEL/SCREEN (TSH) 2019-05-12 18:29:00 Test Item Value Reference Range Interpretation Comments TSH (test code = A57) 0.706 uIU/mL 0.358-3.740 LIVER [id number] 18:28:00 Test Item Value Reference Range Interpretation Comments BILI TOTAL (test code = 11A) 0.9 mg/dL 0.2-1.0 BILI DIRCT (test code = 12A) 0.2 mg/dL 0.0-0.2 BILI INDIR (test code = BILII) 0.7 mg/dL <=0.8 PROTEIN (test code = 07D) 7.7 g/dL 6.4-8.2 ALBUMIN (test code = 08D) 3.8 g/dL 3.5-4.8 GLOBULIN (test code = GLB) 3.9 g/dL 1.5-3.8 H ALB/GLOB (test code = AGRR) 1.0 1.0-2.6 ALK PHOS (test code = 35A) 106 IU/L 42-121 AST (test code = 30A) 25 IU/L <=42 ALT (test code = 31A) 21 IU/L <=78 BRAIN NATRIURETIC [id number] 18:19:00 Test Item Value Reference Range Interpretation Comments proBNP (test code = PBNP) 518 pg/mL 0-125 H [id number] 18:15:00 Test Item Value Reference Range Interpretation Comments MAGNESIUM (test code = 48A) 1.9 mg/dL 1.8-2.4 [id number] 17:40:00 Test Item Value Reference Range Interpretation Comments D-DIMER (test code = <200 ng/mL D-DU 0-234 DDI) D-DIMER COMMENT (test *Level to rule out code = DDCOM) DVT or PE: <235 ng/mL D-DU* CARDIAC [id number] 17:31:00 Test Item Value Reference Range Interpretation Comments TROPONIN I (test code = A84) <0.015 ng/mL 0.000-0.045 BASIC METABOLIC [id number] 17:27:00 Test Item Value Reference Range Interpretation Comments GLUCOSE (test code = 06D) 114 mg/dL 75-100 H SODIUM (test code = 01A) 142 mmol/L 136-145 POTASSIUM (test code = 01B) 4.0 mmol/L 3.6-5.1 CHLORIDE (test code = 04A) 111 mmol/L 98-107 H CO2 (test code = 02A) 26 mmol/L 22-32 ANION GAP (test code = ANG) 9.0 mmol/L BUN (test code = 05D) 19 mg/dL 7-18 H CREATININE (test code = 03E) 1.2 mg/dL 0.4-1.1 H BUN/CREA (test code = BCR) 15 12-20 CALCIUM (test code = 09D) 9.2 mg/dL 8.3-9.5 CBC (INCLUDES AUTOMATED DIFFERENTIAL)2019-05-12 17:26:00 Test Item Value Reference Range Interpretation Comments WBC (test code = WBC) 12.6 10\S\3/uL 4.5-11.0 H RBC (test code = RBC) 4.04 10\S\6/uL 4.20-5.60 L HGB (test code = HBG) 11.9 g/dL 12.0-15.5 L HCT (test code = HCT) 37.6 % 35.0-44.0 MCV (test code = MCV) 93.1 fL 81.0-99.0 MCH (test code = MCH) 29.5 pg 27.0-31.0 MCHC (test code = MCHC) 31.6 g/dL 32.0-36.0 L RDW (test code = RDW) 13.8 % 11.5-14.5 PLT (test code = PLT) 152 10\S\3/uL 130-400 MPV (test code = MPV) 11.3 fL 9.4-12.4 NEUTROP # (test code = NE#) 10.7 10\S\3/uL 1.6-8.0 H LYMPH # (test code = LY#) 1.1 10\S\3/uL 1.1-3.5 MONOCYTE # (test code = MO#) 0.6 10\S\3/uL 0.0-1.1 EOSINOPH # (test code = EO#) 0.1 10\S\3/uL 0.0-0.7 BASOPHIL # (test code = BA#) 0.0 10\S\3/uL 0.0-0.3 IG # (test code = IG#) 0.06 10\S\3/uL 0.00-0.06 NRBC # (test code = NRBC#) 0.00 10\S\3/uL 0.00-0.01 NEUTROPH % (test code = NE%) 85.2 % 35.0-73.0 H LYMPH % (test code = LY%) 8.4 % 20.0-55.0 L MONO % (test code = MO%) 5.0 % 2.5-10.0 EOSINOPH % (test code = EO%) 0.6 % 0.0-5.0 BASOPHIL % (test code = BA%) 0.3 % 0.0-2.0 IG % (test code = IG%) 0.5 % 0.0-0.8 NRBC% (test code = NRBC%) 0.0 % 0.0-0.2 MANDIFF (test code = MDIFF) NO NO PTT (PARTIAL THROMBOPLASTIN TIME)2019-05-12 17:26:00 Test Item Value Reference Range Interpretation Comments PTT (test code = 31.9 s 20.2-38.0 PTT) PTTH (test code = To monitor the PTTH) effectiveness of heparin, we offer the Anti-Xa (Heparin Assay). It can be used for either unfractionated or LMW Heparin. Order Code is ANTI-XA PROTHROMBIN [id number] 17:26:00 Test Item Value Reference Range Interpretation Comments PT (test code = 12.0 s 9.8-13.6 TT) INR (test code = 1.1 INR) INRH (test code = SUGGESTED INRH) THERAPEUTIC RANGE FOR INR: 2.5 - 3.5 For Patients with Prosthetic Valves or Patients with recurrent Thromboembolic Events 2.0 - 3.0 For Most Other Applications XR CHEST 1 VIEW [id number] 17:04:28Portable AP chest, 1 viewLocation Code: [id number] HISTORY: Chest painCOMPARISON: NoneCOMMENT: Mild atelectasis is present within the lung bases. The costophrenic angles aresharp. The cardiomediastinalsilhouette is unremarkable. The bones are intact.IMPRESSION: Mild bibasilar atelectasis. Otherwise, no acute abnormalityCRITICAL ACCESS [id number] 16:51:00 Test Item Value Reference Range Interpretation Comments Creatinine Lvl (test code = Creatinine 1.15 0.50-1.40 Lvl) [facility]2017-01-24 16:51:00 Test Item Value Reference Range Interpretation Comments BUN (test code = BUN) 16 7-22 [facility]2017-01-24 16:51:00 Test Item Value Reference Range Interpretation Comments Chloride Lvl (test code = Chloride Lvl) 109 95-109 [facility]2017-01-24 16:51:00 Test Item Value Reference Range Interpretation Comments Potassium Lvl (test code = Potassium 4.3 3.5-5.1 Lvl) [facility]2017-01-24 16:51:00 Test Item Value Reference Range Interpretation Comments Sodium Lvl (test code = Sodium Lvl) 144 135-145 [facility]2017-01-24 16:51:00 Test Item Value Reference Range Interpretation Comments CO2 (test code = CO2) 28 24-32 [facility]2017-01-24 16:51:00 Test Item Value Reference Range Interpretation Comments Calcium Lvl (test code = Calcium Lvl) 8.4 8.5-10.5 [facility]2017-01-24 16:51:00 Test Item Value Reference Range Interpretation Comments AGAP (test code = AGAP) 11.3 10.0-20.0 [facility]2017-01-24 16:51:00 Test Item Value Reference Range Interpretation Comments Glucose Lvl (test code = Glucose Lvl) 109 70-99 [facility]2017-01-24 16:51:00 Test Item Value Reference Range Interpretation Comments eGFR (test code = eGFR) 52 [facility]
--- NOTE | 2021-10-21 17:04 | EDPHYS ---
Physician Documentation [facility] Name: Kassie De Jseus Age: 66 yrs Sex: Female : 1955 Arrival Date: 10/21/2021 Time: 16:33 Bed Waiting Private MD: ED Physician Jorge Herrera HPI: 10/21 16:44 This 66 yrs old Female presents to ER via Unassigned with complaints of Covid Test. kb 16:44 The patient presents to the emergency department with nausea, vomiting. Onset: The kb symptoms/episode began/occurred 2 day(s) ago. Possible causes: unknown. The symptoms are aggravated by nothing. The symptoms are alleviated by nothing. Associated signs and symptoms: Pertinent positives: nausea, vomiting. Severity of symptoms: At their worst the symptoms were moderate in the emergency department the symptoms have improved. The patient has not experienced similar symptoms in the past. The patient has not recently seen a physician. Pt reports nausea, vomiting and headache for 2 days. No vomiting today, but nausea continues. States she came in for a covid test because dialysis told her she would get results today. Historical: - Allergies: 16:47 PENICILLINS; eo2 - PMHx: 16:47 stage 4 kidney failure; dialysis; Hypertensive disorder; high cholesterol; eo2 - Immunization history:: Adult Immunizations not up to date, Client reports having NOT received the Covid vaccine. Flu vaccine is not up to date. - Social history:: Smoking status: Patient denies any tobacco usage or history of. Patient/guardian denies using alcohol, street drugs. ROS: 16:44 Constitutional: Negative for fever, chills, and weight loss. kb 16:44 Abdomen/GI: Positive for nausea and vomiting, Negative for abdominal pain. 16:44 All other systems are negative. 16:44 Neuro: Positive for headache. kb Exam: 16:45 Constitutional: This is a well developed, well nourished patient who is awake, alert, kb and in no acute distress. Head/Face: Normocephalic, atraumatic. ENT: Moist Mucous membranes Respiratory: Respirations even and unlabored. No increased work of breathing. Talking in full sentences Skin: Warm, dry with normal turgor. Normal color. MS/ Extremity: Pulses equal, no cyanosis. Neurovascular intact. Full, normal range of motion. Neuro: Awake and alert, GCS 15, oriented to person, place, time, and situation. Moves all extremities. Normal gait. Psych: Awake, alert, with orientation to person, place and time. Behavior, mood, and affect are within normal limits. Vital Signs: 16:42 BP 130 / 58; Pulse 73; Resp 19; Temp 98.4(O); Pulse Ox 100% on 2 lpm NC; Weight 104.33 eo2 kg; Height 5 ft. 7 in. (170.18 cm); Pain 9/10; 16:42 Body Mass Index 36.02 (104.33 kg, 170.18 cm) eo2 16:42 pt reports lower back pain, states I don't know if I have a urinary tract infection eo2 MDM: 16:44 Patient medically screened. kb 16:45 Data reviewed: vital signs, nurses notes. Data interpreted: Pulse oximetry: on room air kb is 100 %. Interpretation: normal. 16:59 ED course: Pt states she does not want to stay for further workup. Came for a covid kb test and was under the impression that she would get the results today because the dialysis clinic told her that. Pt states she will follow up with her PCP instead of waiting for further studies. 10/21 16:53 Order name: COVID-19 (Coronavirus) Document "Date of Onset" if Symptomatic kb Administered Medications: No medications were administered Disposition: 18:03 Co-signature as Attending Physician, Jorge Herrera MD. rn Disposition Summary: 10/21/21 17:04 Eloped Disposition: after being seen by provider eo2 Reason: (see nurse's notes) eo2 Signatures: Dispatcher [employer] Naila Cheek, MEDICAL PHYSICS TEACHER-C MEDICAL PHYSICS TEACHER-CkJorge Velazquez MD MD rn Owoade, Eunice, RN RN eo2
--- NOTE | 2021-10-21 17:04 | ER ---
Nurse's Notes [facility] Name: Kassie De Jesus Age: 66 yrs Sex: Female : 1955 Arrival Date: 10/21/2021 Time: 16:33 Bed Waiting Private MD: Diagnosis: Presentation: 10/21 16:42 Chief complaint: Patient states: "I want to tested for Covid". Pt reports vomiting for eo2 days, denies vomiting today, reports ongoing nausea, "headache and sinus drainage". Pt gets dialysis T,TH, Sat, reports unvaccinated for COVID. Noted with O2 NC from home. Coronavirus screen: Vaccine status: Patient reports being unvaccinated. Ebola Screen: Patient negative for fever greater than or equal to 101.5 degrees Fahrenheit, and additional compatible Ebola Virus Disease symptoms Patient denies travel to an Ebola-affected area in the 21 days before illness onset. (+) Exposure. Initial Sepsis Screen: Does the patient meet any 2 criteria? No. Patient's initial sepsis screen is negative. Does the patient have a suspected source of infection? No. Patient's initial sepsis screen is negative. Risk Assessment: Do you want to hurt yourself or someone else? Patient reports no desire to harm self or others. Onset of symptoms is unknown. 16:42 Method Of Arrival: Ambulatory eo2 16:42 Acuity: LENI 4 eo2 17:01 Note Pt seen by Anatoly MOFFETT in triage, made aware that COVID results can take a few eo2 days, and that her symptoms cannot be attributed to COVID alone given her health history. Pt advised to wait for further workup in the ER, pt states she does not desire to wait for a long time in the ER, states she wants the COVID swab done and will leave after. Anatoly RITUAL CIRCUMCISER aware. Triage Assessment: 16:49 General: Appears in no apparent distress. Behavior is cooperative. eo2 Historical: - Allergies: 16:47 PENICILLINS; eo2 - PMHx: 16:47 stage 4 kidney failure; dialysis; Hypertensive disorder; high cholesterol; eo2 - Immunization history:: Adult Immunizations not up to date, Client reports having NOT received the Covid vaccine. Flu vaccine is not up to date. - Social history:: Smoking status: Patient denies any tobacco usage or history of. Patient/guardian denies using alcohol, street drugs. Vital Signs: 16:42 BP 130 / 58; Pulse 73; Resp 19; Temp 98.4(O); Pulse Ox 100% on 2 lpm NC; Weight 104.33 eo2 kg; Height 5 ft. 7 in. (170.18 cm); Pain 9/10; 16:42 Body Mass Index 36.02 (104.33 kg, 170.18 cm) eo2 16:42 pt reports lower back pain, states I don't know if I have a urinary tract infection eo2 ED Course: 16:33 Patient arrived in ED. mr 16:44 Naila Ledbetter FNP-C [facility]. kb 16:44 Jorge Herrera MD is Attending Physician. kb 16:47 Triage completed. eo2 17:01 COVID-19 (Coronavirus) Document "Date of Onset" if Symptomatic Sent. eo2 Administered Medications: No medications were administered Outcome: 17:04 Patient left the ED. eo2 Signatures: Naila Ledbetter FNP-C FNP-Ckb Rivera, Mary Brenda Martinez, RN RN eo2
[2021-10-21 17:07] VITALS: BP 130/58; TEMP 98.4; O2SAT 100
== END 2021-10-21 17:04 | disposition left against medical advice (07) ==
LOC: ER 16:29
DX: R11.2 Nausea with vomiting, unspecified (principal); Z20.822 Contact with and (suspected) exposure to COVID-19; Z53.29 Procedure and treatment not carried out because of patient's decision for other reasons
CPT/HCPCS: 99282; U0002

== ENCOUNTER 2021-10-25 23:04 | Observation (INO) | payer OTHER, BC ==
--- OUTSIDE RECORDS SUMMARY | 2021-10-25 23:10 | XMS REPORT | Continuity of Care Document ---
:1955 Author Organization [facility] t Address [address] [place] [address] Care Team Providers Name Role Phone AHMED Attending Clinician Unavailable SUDARSHAN Attending Clinician Unavailable [...] Mem oria 02-14 12:03:00 l NATALYA 00:00: Sullivan 00 Active 02/14/2021 [place] COLON Diagnosis Active 2016-11-17 Mem oria CANCER 11-14 05:49:00 l SCREENING- COLON 00:00: Karen nn Z12.11 CANCER 00 SCREENING- Z12.11 Active 11/14/2016 [place] R92.1 - Diagnosis Active 2016-04-16 Ky moria MAMMOGRAPH 01-31 15:55:00 l IC R92.1 - 00:01: Denis CALCIFCN MAMMOGRAPH 00 FOUND ON IC CALCIFCN FOUND ON Active 02/01/2016 [facility] [place] Z12.31 - Diagnosis Active 2015-11-30 M emoria ENCNTR - 07:08:00 l SCREEN Z12.31 - 00:01: Vicente davis MAMMOGRAM ENCNTR 00 FOR MA SCREEN MAMMOGRAM FOR MA Active 11/12/2015 [facility] [place] RT WRIST Diagnosis Active 2016-12-28 M emoria DISTAL 1- 02:03:00 l RADIUS RT WRIST 09:00: Vicente davis CLSD FX DISTAL 00 RADIUS CLSD FX Active 10/22/2015 [facility] Abnormal Problem Active 2021-09-15 Mem oria glucose 7-02 22:17:41 l level Abnormal 00:00: Vicente davis (finding) glucose 00 level (finding) Active 04/22/2015 Problem 09/15/2021 Data migrated from [employer] on 04/28/15. [facility], ANTHONY Soto, [facility] [place], [facility], [place] Lymphedema Problem Active 2019-11-17 M emoria (disorder) 2- 00:38:51 l 00:00: Denis Lymphedema 00 (disorder) Active 11/25/2013 Problem 11/17/2019 Data migrated from [employer] on 03/20/15. [facility], ANTHONY Soto, [facility] [place], [facility], [place] Obstructiv Problem Active 2021-09-15 M emoria e sleep 2-04 22:17:41 l apnea 00:00: Sullivan syndrome Obstructiv 00 (disorder) e sleep apnea syndrome (disorder) Active 11/25/2013 Problem 09/15/2021 Data migrated from [employer] on 03/20/15. [facility], ANTHONY Soto, [facility] [place], [facility], [place] Hypothyroi Problem Active 2019-08-09 M emoria dism 02-12 21:25:36 l (disorder) 00:00: Vicente n Hypothyroi 00 dism (disorder) Active 02/12/2013 Problem 08/09/2019 Data migrated from [employer] on 03/20/15. [facility] Group, [facility] [place], [facility] [place], [facility], [place] Depressive Problem Active 2021-09-15 M emoria disorder 4-24 22:17:41 l (disorder) 00:00: Vicente n Depressive 00 disorder (disorder) Active 02/12/2013 Problem 09/15/2021 Data migrated from [employer] on 03/20/15. [facility], [facility] [place], [facility] [place], [facility], [place] Obesity Problem Active 2016-05-15 Turner arnoldo (disorder) 8-20 00:23:22 l Obesity 00:00: Sullivan (disorder) 00 Active 06/10/2012 Problem 05/15/2016 Data migrated from [employer] on 03/20/15. [facility] [place], [facility] [place], [facility] Cobalamin Problem Active 2021-09-15 Me moria deficiency 7-11 22:17:41 l (disorder) 00:00: Vicente n Cobalamin 00 deficiency (disorder) Active 05/01/2012 Problem 09/15/2021 Data migrated from [employer] on 03/20/15. [facility], [facility] [place], [facility] [place], [facility], [place] Hypertensi Problem Active 2016-05-15 M emoria ve episode 7-10 00:23:22 l (disorder) 00:00: Vicente n Hypertensi 00 ve episode (disorder) Active 04/30/2012 Problem 05/15/2016 Data migrated from [employer] on 03/20/15. MH OP[facility] [place]any, [facility] [place], [facility] Pain in Problem 2016-01-01 Turner aronldo wrist 05:02:18 l (finding) Pain in Herm connie wrist (finding) Problem 01/01/2016 [facility] [place] Calcificat Problem Resolve 2021-09-15 Memoria ion of d 22:17:41 l breast Sullivan (finding) Calcificat ion of breast (finding) Resolved Problem 09/15/2021 [facility], [facility] [place], [facility] [place], [facility], [place] Dysuria Problem Resolve 2021-09-15 Mem oria (finding) d 22:17:41 l Dysuria Sullivan (finding) Resolved Problem 09/15/2021 [facility], [facility] [place], [place] Acute Problem Active 2020-02-08 Memor ia urinary 22:36:35 l tract Acute Sullivan infection urinary (disorder) tract infection (disorder) Active Problem 02/08/2020 Medical Group Chronic Problem Active 2020-02-08 Turner arnoldo renal 22:36:35 l impairment Chronic Her hunt (disorder) renal impairment (disorder) Active Problem 02/08/2020 [facility] Group, OPIEverette Soto, [facility] [place], [facility], [place] Diabetes Problem Active 2020-06-24 Mem oria mellitus 23:27:54 l (disorder) Diabetes He rmann mellitus (disorder) Active Problem 06/24/2020 [facility], [facility] [place] Urinalysis Problem Active 2021-09-15 M emoria = abnormal 22:17:41 l (finding) Denis Urinalysis = abnormal (finding) Active Problem 09/15/2021 [facility], [facility] [place], [place] Atrial Problem Active 2021-09-15 Memor ia fibrillati 22:17:41 l on Atrial Denis (disorder) fibrillati on (disorder) Active Problem 09/15/2021 [facility], [facility] [place], [place] Benign Problem Active 2021-09-15 Memor ia essential 22:17:41 l hypertensi Benign Herm connie on essential (disorder) hypertensi on (disorder) Active Problem 09/15/2021 [facility], [facility] [place], [facility] [place], [facility], [place] Cardiorena Problem Active 2021-09-15 M emoria l syndrome 22:17:41 l (disorder) Vicente n Cardiorena l syndrome (disorder) Active Problem 09/15/2021 [facility], [facility] [place], [place] Chronic Problem Active 2021-09-15 Turner arnoldo kidney 22:17:41 l disease Chronic Vicente n (disorder) kidney disease (disorder) Active Problem 09/15/2021 [facility], [facility] [place], [place] Chronic Problem Active 2021-09-15 Turner arnoldo kidney 22:17:41 l disease Chronic Vicente n stage 3 kidney (disorder) disease stage 3 (disorder) Active Problem 09/15/2021 [facility], [facility] [place], [place] Chronic Problem Active 2021-09-15 Turner arnoldo pain 22:17:41 l (finding) Chronic Herm connie pain (finding) Active Problem 09/15/2021 [facility], [facility] [place], [place] Dependence Problem Active 2021-09-15 M emoria on 22:17:41 l supplement Vicente n al oxygen Dependence (finding) on supplement al oxygen (finding) Active Problem 09/15/2021 [facility], [place] Edema of Problem Active 2021-09-15 Mem oria lower 22:17:41 l extremity Edema of Her hunt (finding) lower extremity (finding) Active Problem 09/15/2021 [facility], [facility] [place], [place] Hyperlipid Problem Active 2021-09-15 M emoria emia 22:17:41 l (disorder) Vicente n Hyperlipid emia (disorder) Active Problem 09/15/2021 Data migrated from [facility] on 03/20/15. Medical Group, ANTHONY Soto, [facility] [place],[facility], [place] Hyperparat Problem Active 2021-09-15 M emoria hyroidism 22:17:41 l (disorder) Vicente n Hyperparat hyroidism (disorder) Active Problem 09/15/2021 [facility], [facility] [place], [place] Hypertensi Problem Active 2021-09-15 M emoria ve 22:17:41 l disorder, Denis systemic Hypertensi arterial ve (disorder) disorder, systemic arterial (disorder) Active Problem 09/15/2021 Medical Group,[facility] [place], [facility] [place], [place] Hypertensi Problem Active 2021-09-15 M emoria ve renal 22:17:41 l disease Sullivan (disorder) Hypertensi ve renal disease (disorder) Active Problem 09/15/2021 [facility], [facility] [place], [place] Hyperurice Problem Active 2021-09-15 M emoria bryant 22:17:41 l (disorder) Vicente n Hyperurice bryant (disorder) Active Problem 09/15/2021 Data migrated from [facility] on 03/20/15. Medical Group, [facility] [place], [facility] [place], [facility], [place] Lymphedema Problem Active 2021-09-15 M emoria of lower 22:17:41 l extremity Denis (disorder) Lymphedema of lower extremity (disorder) Active Problem 09/15/2021 [facility], [facility] [place], [place] Malignant Problem Active 2021-09-15 Me moria neoplasm 22:17:41 l of skin of Vicente n upper limb Malignant (disorder) neoplasm of skin of upper limb (disorder) Active Problem 09/15/2021 [facility], [facility] [place], [place] Morbid Problem Active 2021-09-15 Memor ia obesity 22:17:41 l (disorder) Morbid Herm connie obesity (disorder) Active Problem 09/15/2021 [facility], [facility] [place], [facility] [place], [facility], [place] Post-disch Problem Active 2021-09-15 M emoria arge 22:17:41 l follow-up Denis (finding) Post-disch arge follow-up (finding) Active Problem 09/15/2021 [facility], [place] Prerenal Problem Active 2021-09-15 Mem oria azotemia 22:17:41 l (disorder) Prerenal He rmann azotemia (disorder) Active Problem 09/15/2021 [facility], [facility] [place], [place] Proteinuri Problem Active 2021-09-15 M emoria a 22:17:41 l (finding) Denis Proteinuri a (finding) Active Problem 09/15/2021 [facility], [facility] [place], [place] Stasis Problem Active 2021-09-15 Memor ia ulcer 22:17:41 l (disorder) Stasis Herm connie ulcer (disorder) Active Problem 09/15/2021 [facility], [facility] [place], [place] Swelling - Problem Active 2021-09-15 M emoria edema - 22:17:41 l symptom Swelling Karen nn (finding) - edema - symptom (finding) Active Problem 09/15/2021 [facility], [facility] [place], [place] Swollen Problem Active 2021-09-15 Turner arnoldo ankle 22:17:41 l (finding) Swollen Herm connie ankle (finding) Active Problem 09/15/2021 [facility], [facility] [place], [place] Urinary Problem Resolve 2021-09-15 Mem oria tract d 22:17:41 l infectious Urinary Her hunt disease tract (disorder) infectious disease (disorder) Resolved Problem 09/15/2021 [facility], [facility] [place], [place] Venous Problem Active 2021-09-15 Memor ia ulcer of 22:17:41 l leg Venous Denis (disorder) ulcer of leg (disorder) Active Problem 09/15/2021 [facility], [facility] [place], [place] Weight Problem Active 2021-09-15 Memor ia gain 22:17:41 l finding Weight Sullivan (finding) gain finding (finding) Active Problem 09/15/2021 [facility], [facility] [place], [place] Acute Problem Active 2016-05-15 Memor ia renal 00:23:22 l failure Acute Sullivan syndrome renal (disorder) failure syndrome (disorder) Active Problem 05/15/2016 Data migrated from [facility] on 03/20/15. [facility] [place], [facility] [place],[facility] Kidney Problem Active 2016-11-20 Memor ia disease 03:07:28 l (disorder) Kidney Herm connie disease (disorder) Active Problem 11/20/2016 [place] Migraine Problem Active 2016-11-20 Mem oria (disorder) 03:07:28 l Migraine Vicente n (disorder) Active Problem 11/20/2016 [facility] [place], [place] RIGHT Diagnosis Active 2016-03-09 Mem oria WRIST 15:06:00 l DISTAL RIGHT Denis RADIUS WRIST CLSD FX DISTAL RADIUS CLSD FX Active [facility] DISTAL Diagnosis Active 2016-04-21 Mem oria RADIUS 09:46:00 l CLSD FX DISTAL Sullivan RADIUS CLSD FX Active [facility] Cholestero Problem 2016-01-01 M emoria l 05:02:18 l (substance Vicente n ) Cholestero l (substance ) Problem 01/01/2016 [facility] [place] Sleep Problem 2016-01-01 Memor ia apnea 05:02:18 l (finding) Sleep Vicente n apnea (finding) Problem 01/01/2016 2does not use cpap [facility] [place] Dependence Problem 2020-102021-09-12 2021-09-12 Memoria on 11-09 01:29:16 01:29:16 l supplement 21:17: Vicente n al oxygen Dependence 00 on supplement al oxygen 09/09/2021 09/12/2021 Medical Group Other Problem 2020-102021-09-12 2021-09-12 M emoria hyperlipid 11-09 01:29:16 01:29:16 l emia Other 21:16: Sullivan hyperlipid 00 emia 09/09/2021 09/12/2021 Medical Group Unsteadine Problem 2020-102021-09-12 2021-09-12 Memoria ss on feet 11-09 01:29:16 01:29:16 l 21:13: Sullivan Unsteadine 00 ss on feet 09/09/2021 09/12/2021 Medical Group Weakness Problem 2020-102021-09-12 2021-09-12 Memoria 11-09 01:29:16 01:29:16 l Weakness 21:13: Vicente n 00 09/09/2021 09/12/2021 [facility] Essential Problem 2020-102021-09-12 2021-09-12 Memoria (primary) 11-09 01:29:16 01:29:16 l hypertensi 21:12: Vicente davis on Essential 00 (primary) hypertensi on 09/09/2021 09/12/2021 Medical Group Other long Problem 2020-102021-09-08 2021-09-08 Memoria term 11-06 22:39:43 22:39:43 l (current) Other 22:29: Vicente n drug care home 00 therapy (current) drug therapy 09/06/2021 09/08/2021 Medical Group Other Problem 2020-102021-09-08 2021-09-08 Cecelia morales abnormal 11-06 22:39:43 22:39:43 l glucose Other 22:23: Sullivan abnormal 00 glucose 09/06/2021 09/08/2021 [facility] Group Acute Problem Resolve 2012-2016-05-15 2016-05-15 Memoria otitis d -24 00:23:22 00:23:22 l media Acute 00:00: Denis (disorder) otitis 00 media (disorder) Resolved 02/12/2013 Problem 05/15/2016 Data migrated from [facility] on 05/08/15. ANTHONY Soto, [facility] [place],[facility] Allergies, Adverse Reactions, Alerts Allergy Allergy Status Severity Reaction(s) Onset Inactive Treating Comm ents Source Name Type Date Date Clinician penicill penicill Active Memori a ins<sup> ins<sup> l 1</sup> 1</sup> Denis codeine< codeine< Active Memori a sup>1</s sup>1</s l up> up> Denis cefepime cefepime Active Memori a l Denis Levaquin Levaquin Active Memori a l Denis penicill penicill Active Memori a ins<sup> ins<sup> l 2</sup> 2</sup> Denis codeine codeine Active Memoria l [place] penicill penicill Active Memori a ins ins l Denis Social History Social Habit Start Date Stop Date Quantity Comments Source Social History 2019-08-15 2019-08-15 Aylin retana 14:54:48 14:54:48 Smoking Status Start Date Stop Date Source Social History [facility] Denis Medications Ordered Filled Start Stop Current Ordering Indication Dosage Frequency Signature Comments Components Source Medication Medication Date Date Medication? Clinician (SIG) Name Name Mupirocin 2020-10 Yes 1 appl, Memor ia 0.02 MG/MG 1-22 TOP, TID, l Topical 23:21: X 5 day, # Herm connie Ointment 00 22 gm, 0 Refill(s), Pharmacy: [facility] #[id number], 165.1, cm, 09/09/21 14:08:00 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, Height, 136.42, kg, 09/09/21 14:08:00 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, Weight bumetanide 2020-10 Yes 2 mg = 1 Mem oria 2 mg oral 1-19 tab, PO, l tablet 21:11: Daily, # Sullivan 00 30 tab, 0 Refill(s) allopurinol 2020-10 [...] once a l tablet 13:55: day, 0 Sullivan 00 Refill(s) torsemide Yes 1 tablet, Mem oria 20 mg oral 3-30 twice a l tablet 13:55: day, 0 Sullivan 00 Refill(s) potassium Yes 1 tablet, Mem oria chloride 20 3-30 once a l mEq oral 13:54: day, 0 Denis tablet, 00 Refill(s) extended release (KCL) allopurinol Yes 1/2 Memori a 300 mg oral 3-30 tablet, l tablet 13:53: once a Denis 00 day, 0 Refill(s) carvedilol Yes 1 tablet, Me moria 3.125 mg 3-30 twice a l oral tablet 13:53: day, 0 Herm connie 00 Refill(s) Digoxin Yes 1 tablet, Memor ia 0.125 MG 3-30 once a l Oral Tablet 13:53: day, 0 Herm connie 00 Refill(s) DULoxetine Yes 1 capsule, M emoria 60 mg oral 3-30 once a l delayed 13:53: day, 0 Sullivan release 00 Refill(s) capsule apixaban 5 Yes 1 tablet, Me moria MG Oral 3-30 twice a l Tablet 13:53: day, 0 Sullivan [Eliquis] 00 Refill(s) gabapentin Yes 1 capsule, M emoria 300 MG Oral 3-30 twice a l Capsule 13:53: day, 0 Sullivan 00 Refill(s) metoprolol Yes 1 tablet, Me moria tartrate 50 3-30 Twice a l mg oral 13:53: day, 0 Sullivan tablet 00 Refill(s) midodrine 5 Yes 1 [...] DAILY, # 66 gm, 1 Refill(s), Pharmacy: [facility] #[id number], 170.18, cm, 12/16/19 14:42:00 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, Height, 164.318, kg, 12/16/19 14:42:00 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, Weight Nitrofurant Yes 100 mg = 1 Memoria oin 100 MG 8-09 cap, PO, l Oral 17:57: BID, X 10 Sullivan Capsule 00 day, # 20 [Macrobid] cap, 0 Refill(s), Pharmacy: [facility] #[id number], 170.18, cm, 12/16/19 14:42:00 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, Height, 164.318, kg, 12/16/19 14:42:00 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, Weight lisinopril 2020-0 Yes 2.5 mg = 1 M emoria 2.5 mg oral 6-04 tab, PO, l tablet 23:26: Daily, # Sullivan 00 30 tab, 2 Refill(s), called to pharmacy calcitriol 2020-0 Yes = 1 cap, Mem oria 0.25 mcg 5-20 PO, Daily, l oral 12:18: # 90 cap, Sullivan capsule 00 1 Refill(s), [id number] calcitriol 2020-0 Yes = 1 cap, Mem oria 0.25 mcg 4-16 PO, Daily, l oral 16:37: # 90 Sullivan capsule 47 unknown unit, [id number] Furosemide 2019-0 Yes = 1 tab, Mem oria 40 MG Oral 4-13 PO, Every l Tablet 20:06: Other Day, Karen nn 19 # 45 tab, [id number] prednisolon 2020-0 Yes 1 drop in M emoria e acetate 4-10 each eye, l 10 MG/ML 20:53: once Denis Ophthalmic 00 daily, 0 Suspension Refill(s) bromfenac 2019-0 Yes 1 drop in Mem oria 0.7 MG/ML 4-10 right eye, l Ophthalmic 20:53: once Denis Solution 00 daily, 0 [Prolensa] Refill(s) Furosemide 2019-0 Yes = 1 tab, Mem oria 40 MG Oral 1-23 PO, Every l Tablet 15:13: Other Day, Karen nn 34 # 45 tab, [id number] Mupirocin 2018-10 Yes See Memoria 0.02 MG/MG 2-27 Instructio l Topical 19:11: ns, # 66 Vicente n Ointment 15 gm, APPLY EXTERNALLY TO THE AFFECTED AREA TWICE DAILY, Pharmacy: [facility] #[id number] Nitrofurant 2018-10 Yes 100 mg = 1 Memoria oin 100 MG 2-13 cap, PO, l Oral 01:44: BID, X 5 Denis Capsule 00 day, # 10 [Macrodanti cap, 0 n] Refill(s), [facility] #[id number] apixaban 5 2018-10 Yes 5 mg, PO, [...] ermann Bitartrate 00 5 MG Oral Tablet [Clinton 5/325] calcitriol 2018-10 Yes = 1 cap, Mem oria 0.25 mcg 0-11 PO, Daily, l oral 21:10: # 90 Sullivan capsule 30 unknown unit, Pharmacy: [facility] #[id number] gabapentin Yes 300 mg = 1 M emoria 300 MG Oral 9-27 cap, PO, l Capsule 20:54: BID, # 180 Herm connie 00 cap, 3 Refill(s), called to pharmacy allopurinol Yes = 1 tab, Me moria 300 mg oral 8-17 PO, Daily, l tablet 02:39: # 90 tab, Vicente n 31 Pharmacy: [facility] #[id number] QUEtiapine Yes 50 mg = 1 Me [...] l oral tablet 15:07: ns, TAKE 1 Denis 35 TABLET BY MOUTH EVERY NIGHT AT BEDTIME, # 90 tab, 1 Refill(s), Pharmacy: [facility] [place] [address] amLODIPine Yes See Memoria 5 mg oral 3-14 Instructio l tablet 15:07: ns, TAKE 1 Karen nn 33 TABLET BY MOUTH EVERY DAY, # 90 tab, 1 Refill(s), Pharmacy: [facility] [place] [address] lisinopril Yes See Memoria 5 mg oral 8-21 Instructio l tablet 19:00: ns, TAKE 1 Karen nn 30 TABLET BY MOUTH DAILY, # 90 tab, 1 Refill(s), Pharmacy: [facility] [place] [address] atorvastati Yes See Memori a n 40 mg 8-21 Instructio l oral tablet 18:50: ns, TAKE 1 Denis 45 TABLET BY MOUTH EVERY NIGHT AT BEDTIME, # 30 tab, 5 Refill(s), Pharmacy: [facility] [place] [address] amLODIPine Yes See Memoria 5 mg oral 8-21 Instructio l tablet 18:50: ns, TAKE 1 Karen nn 41 TABLET BY MOUTH EVERY DAY, # 30 tab, 5 Refill(s), Pharmacy: [facility] [place] [address] lisinopril No See Memoria 5 mg oral 7-31 Instructio l tablet 15:28: ns, # 90 Denis 34 tab, TAKE 1 TABLET BY MOUTH DAILY, Pharmacy: [facility] [place] [address] allopurinol No 300 mg = 1 Memoria 300 mg oral 5-10 tab, PO, l tablet 13:59: Daily, # Sullivan 00 90 tab, 1 Refill(s), Pharmacy: [facility] [place] [address] lisinopril No See Memoria 5 mg oral 5-01 Instructio l tablet 12:38: ns, # 90 Sullivan 18 tab, TAKE 1 TABLET BY MOUTH DAILY, Pharmacy: [facility] [place] [address] ALLOPURINOL Yes See Memori a 300MG 5-01 Instructio l TABLETS 12:38: ns, # 90 Vicente n 18 tab, TAKE 1 TABLET BY MOUTH DAILY, Pharmacy: [facility] [place] [address] calcitriol 2018-0 Yes 0.25 Memoria 0.25 mcg 3-28 microgram l oral 13:49: = 1 cap, Sullivan capsule 00 PO, Daily, # 90 cap, 3 Refill(s), Pharmacy: [facility] Mupirocin Yes 1 appl, Memor ia 0.02 MG/MG 3-21 TOP, BID, l Topical 15:37: 30 grams Vicente n Ointment 21 3each, # 3 ea, 1 Refill(s), Pharmacy: [facility] atorvastati Yes See Memori a n 40 mg 3-21 Instructio l oral tablet 15:36: ns, TAKE 1 Denis 22 TABLET BY MOUTH EVERY NIGHT AT BEDTIME, # 30 tab, 5 Refill(s), [facility] amLODIPine Yes See Memoria 5 mg oral 3-21 Instructio l tablet 15:36: ns, TAKE 1 Karen nn 18 TABLET BY MOUTH EVERY DAY, # 30 tab, 5 Refill(s), Pharmacy: [facility] aspirin 81 Yes 81 mg = 1 Me moria mg tablet, 1-24 tab, PO, l enteric 16:34: Daily, # Vicente n coated 00 90 tab, 3 Refill(s) Xopenex No Kyle K 0.63 mg = Mem oria 0.63 mg/3 3-11 Silvestre 3 mL, l mL 01:00: Soln, NEB, Denis inhalation 00 Once, solution first dose 12/30/15 19:00:00 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, stop date 12/30/15 19:00:00 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 Misc No Perico 300 mL, Memoria Medication 3-11 Wheat Soln-IV, l 00:03: IV, Once, Sullivan 00 first dose 12/30/15 18:03:00 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, stop date 12/30/15 18:03:00 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 promethazin No Kyle K 12.5 mg = Memoria e 3-11 Silvestre 0.5 mL, l 00:02: Injection, Sullivan 00 IM, Once PRN for severe nausea, first dose 12/30/15 18:02:00 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 albuterol No Kyle K 2.5 mg = 3 Memoria 2.5 mg/3 mL 3-11 Silvestre mL, Soln, l (0.083%) 00:02: NEB, Once Herm connie inhalation 00 PRN for solution wheezing, first dose 12/30/15 18:02:00 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 Demerol HCl No Kyle K 12.5 mg = Memoria 3-11 Silvestre 0.25 mL, l 00:02: Injection, Sullivan 00 IV Push, Once PRN for shivers, first dose 12/30/15 18:02:00 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 ondansetron No Kyle K 4 mg = 2 Memoria 3-11 Silvestre mL, l 00:02: Injection, Denis 00 IV Push, q15min PRN for nausea/vom iting, order duration: 2 doses, first dose 12/30/15 18:02:00 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, stop date Limited # of times Dilaudid No Kyle K 0.5 mg = Mem oria 3-11 Silvestre 0.25 mL, l 00:02: Injection, Sullivan 00 IV Push, q10min PRN for pain severe (7-10), first dose 12/30/15 18:02:00 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 diphenhydrA No Kyle K 25 mg = M emoria MINE 3-11 Silvestre 0.5 mL, l 00:02: Injection, Sullivan 00 IV Push, Once PRN for itching, first dose 12/30/15 18:02:00 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 LR 1,000 mL No Kyle K 1,000 mL, Memoria 3-11 Silvestre IV, 75 l 00:02: mL/hr, Denis start date 12/30/15 18:02:00 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 Saline Lock No Kyle K 10 mL, Me moria Flush 3-11 Silvestre Soln, IV l 00:02: Push, As Sullivan 00 Indicated PRN for flush, first dose 12/30/15 18:02:00 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 Bupivacaine No Kyle K 300 mL, M emoria 0.25% 300 3-11 Silvestre Nerve l mL pump 300 00:02: Block, 5 He rmann mL 00 mL/hr, start date 12/30/15 18:02:00 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 Misc No Perico 1,000 mL, Memori a Medication 3-10 Wheat Soln-IV, l 23:42: IV, Once, Denis 00 first dose 12/30/15 17:42:00 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, stop date 12/30/15 17:42:00 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 fentaNYL No Perico 25 mcg = Mem oria 3-10 Wheat 0.5 mL, l 23:20: Injection, Sullivan 00 IV, Once, first dose 12/30/15 17:20:00 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, stop date 12/30/15 17:20:00 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 ondansetron No Perico 4 mg = 2 Memoria 3-10 Wheat mL, l 23:03: Injection, Sullivan 00 IV, Once, first dose 12/30/15 17:03:00 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, 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 12/30/15 17:03:00 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 fentaNYL No Perico 25 mcg = Mem oria 3-10 Wheat 0.5 mL, l 23:00: Injection, Sullivan 00 IV, Once, first dose 12/30/15 17:00:00 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, stop date 12/30/15 17:00:00 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 fentaNYL No Perico 25 mcg = Mem oria 3-10 Wheat 0.5 mL, l 22:48: Injection, Denis 00 IV, Once, first dose 12/30/15 16:48:00 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, stop date 12/30/15 16:48:00 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 fentaNYL No Perico 25 mcg = Mem oria 3-10 Wheat 0.5 mL, l 22:37: Injection, Denis 00 IV, Once, first dose 12/30/15 16:37:00 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, stop date 12/30/15 16:37:00 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 dexamethaso No Perico 8 mg = 2 Memoria ne 3-10 Wheat mL, l 22:23: Injection, Sullivan 00 IV, Once, first dose 12/30/15 16:23:00 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, stop date 12/30/15 16:23:00 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 Misc No Perico 1,000 mL, Memori a Medication 3-10 Wheat Soln-IV, l 22:21: IV, Once, Denis 00 first dose 12/30/15 16:21:00 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, stop date 12/30/15 16:21:00 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 clindamycin Yes Perico 928.125 M emoria 3-10 Wheat mg, l 22:18: Soln-IV, Sullivan 00 IV, Once, first dose 12/30/15 16:18:00 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, stop date 12/30/15 16:18:00 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 fentaNYL No Perico 25 mcg = Mem oria 3-10 Wheat 0.5 mL, l 22:05: Injection, Sullivan 00 IV, Once, first dose 12/30/15 16:05:00 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, stop date 12/30/15 16:05:00 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 midazolam No Percio 0.5 mg = Me moria 3-10 Wheat 0.5 mL, l 22:05: Injection, Sullivan 00 IV, Once, first dose 12/30/15 16:05:00 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, stop date 12/30/15 16:05:00 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 lidocaine No Perico 3 mL, Memor ia 3-10 Wheat Injection, l 21:58: IV, Once, Denis 00 first dose 12/30/15 15:58:00 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, stop date 12/30/15 15:58:00 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 propofol No Perico 120 mg = Mem oria 3-10 Wheat 12 mL, l 21:58: Emulsion, Sullivan 00 IV, Once, first dose 12/30/15 15:58:00 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, stop date 12/30/15 15:58:00 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 midazolam No Perico 0.5 mg = Me moria 3-10 Wheat 0.5 mL, l 21:50: Injection, Denis 00 IV, Once, first dose 12/30/15 15:50:00 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, stop date 12/30/15 15:50:00 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 fentaNYL No Perico 25 mcg = Mem oria 3-10 Wheat 0.5 mL, l 21:50: Injection, Denis 00 IV, Once, first dose 12/30/15 15:50:00 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, stop date 12/30/15 15:50:00 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 midazolam No Perico 0.5 mg = Me moria 3-10 Wheat 0.5 mL, l 21:10: Injection, Denis 00 IV, Once, first dose 12/30/15 15:10:00 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, stop date 12/30/15 15:10:00 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 fentaNYL No Perico 25 mcg = Mem oria 3-10 Wheat 0.5 mL, l 21:10: Injection, Sullivan 00 IV, Once, first dose 12/30/15 15:10:00 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, stop date 12/30/15 15:10:00 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 fentaNYL No Perico 25 mcg = Mem oria 3-10 Wheat 0.5 mL, l 21:05: Injection, Denis 00 IV, Once, first dose 12/30/15 15:05:00 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, stop date 12/30/15 15:05:00 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 midazolam No Perico 0.5 mg = Me moria 3-10 Wheat 0.5 mL, l 21:05: Injection, Sullivan 00 IV, Once, first dose 12/30/15 15:05:00 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, stop date 12/30/15 15:05:00 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 clindamycin No Jose Francisco 900 mg, IV Memoria 3-10 Johnson Piggyback, l 20:00: Once, Sullivan 00 infuse over 30 minutes, first dose 12/30/15 14:00:00 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, stop date 12/30/15 14:00:00 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, Prophylaxi s LR 1,000 mL No Kyle K 1,000 mL, Memoria 3-10 Silvestre IV, 30 l 19:27: mL/hr, Denis 00 start date 12/30/15 13:27:00 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 Lidocaine No Kyle K 0.2 mL, Mem oria 2% 0.2 mL 3-10 Silvestre Injection, l IV Start 19:27: Subcutaneo [facility] 00 us, Once PRN for other (see comment), first dose 12/30/15 13:27:00 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 Seroquel Yes 100 mg, Memori a 3-09 Oral, l 14:40: Daily, 0 Denis 00 Refill(s), migraines acetaminoph Yes 1 tabs, Mem oria en-HYDROcod 3-09 Oral, l one 325 14:40: q6hr, 0 Sullivan mg-5 mg 00 Refill(s), oral tablet pain traMADol 50 2016-0 Yes 50 mg = 1 M emoria mg oral -09 tabs, l tablet 14:40: Oral, Denis 00 q4hr, 0 Refill(s), pain amLODIPine- Yes 1 tabs, Mem oria atorvastati 12-28 Oral, qHS, l n 5 mg-40 14:40: 0 Sullivan mg oral 00 Refill(s), tablet cholestero l/hyperten will Osteo Yes Oral, Memoria Bi-Flex 3- Daily, 0 l 14:40: Refill(s), Sullivan 00 supplement Nature's Yes 1,000 mg = Mem oria Bounty Red 12-28 2 caps, l Krill Oil 14:40: Oral, BID, He rmann 500 mg oral 00 0 capsule Refill(s), supplement aspirin 81 Yes 81 mg = 1 Me moria mg oral 12-28 tabs, l tablet 14:40: Oral, Sullivan 00 Daily, 0 Refill(s), supplement Axert 12.5 Yes 12.5 mg = Me moria mg oral 12-28 1 tabs, l tablet 14:40: Oral, Sullivan 00 Once, PRN for migraine headache, may repeat dose once in 2 hours, # 6 tabs, 0 Refill(s), migrainesm ay repeat dose once in 2 hours Wellbutrin Yes 300 mg, Turner arnoldo XL 12-28 Oral, l 14:40: q24hr, 0 Denis 00 Refill(s), migraines Immunizations Ordered Immunization Filled Immunization Date Status Commen ts Source Name Name influenza 2019-08-13 Completed [facility] vaccine-unspecified< 00:00:00 Herm connie sup>1</sup> pneumococcal 2019-05-14 Completed [facility] 23-valent 00:00:00 Denis vaccine<sup>3</sup> Hx influenza 2011-08-15 Completed [facility] vaccine-unspecified< 14:42:42 Herm connie sup>1</sup> Hx influenza 2011-08-15 Completed [facility] vaccine-unspecified< 14:42:42 Herm connie sup>2</sup> Vital Signs Vital Name Observation Time Observation Value Comments Source Heart Rate 2021-09-09 20:12:00 [facility] Heart Rate 2021-09-09 20:08:00 [facility] Systolic (mm Hg) 2021-09-09 20:08:00 Turner rial Sullivan Diastolic (mm Hg) 2021-09-09 20:08:00 Mem orial Denis Height 2021-09-09 20:08:00 165.1 cm [facility] Weight 2021-09-09 20:08:00 [facility] BMI Calculated 2021-09-09 20:08:00 Memori al [place] Systolic (mm Hg) 2020-09-15 15:59:00 Turner rial Sullivan Diastolic (mm Hg) 2020-09-15 15:59:00 Mem orial [place] Heart Rate 2020-09-15 15:59:00 [facility] Height 2020-09-15 15:59:00 165.1 cm [facility] Weight 2020-09-15 15:59:00 [facility] Denis BMI Calculated 2020-09-15 15:59:00 Memori al Denis Systolic (mm Hg) 2019-12-16 20:42:00 Turner rial Denis Diastolic (mm Hg) 2019-12-16 20:42:00 Mem orial Denis Heart Rate 2019-12-16 20:42:00 [facility] Temperature Oral (F) 2019-12-16 20:42:00 98.2 F [facility] Height 2019-12-16 20:42:00 170.18 cm [facility] Weight 2019-12-16 20:42:00 [facility] Denis BMI Calculated 2019-12-16 20:42:00 [facility]ori al [place] Systolic (mm Hg) 2019-10-02 21:53:00 Turner rial Denis Diastolic (mm Hg) 2019-10-02 21:53:00 Mem orial Denis Heart Rate 2019-10-02 21:53:00 [facility] Temperature Oral (F) 2019-10-02 21:53:00 97.9 F [facility] Height 2019-10-02 21:53:00 165.1 cm [facility] Weight 2019-10-02 21:53:00 [facility] Denis BMI Calculated 2019-10-02 21:53:00 Memori al Denis Height 2019-08-15 14:54:00 165.1 cm [facility] Weight 2019-08-15 14:54:00 [facility] Denis BMI Calculated 2019-08-15 14:54:00 Memori al [place] Systolic (mm Hg) 2019-08-15 14:54:00 Turner rial Sullivan Diastolic (mm Hg) 2019-08-15 14:54:00 Mem orial Denis Heart Rate 2019-08-15 14:54:00 [facility] Denis Temperature Oral (F) 2019-08-15 14:54:00 97.6 F [facility] Systolic (mm Hg) 2019-07-31 15:37:00 Turner rial Sullivan Diastolic (mm Hg) 2019-07-31 15:37:00 Mem orial Denis Heart Rate 2019-07-31 15:37:00 [facility] Denis Temperature Oral (F) 2019-07-31 15:37:00 98.2 F [facility] Denis Height 2019-07-31 15:37:00 165.1 cm [facility] Denis Weight 2019-07-31 15:37:00 [facility] BMI Calculated 2019-07-31 15:37:00 Memori al [place] Weight 2019-03-27 15:18:00 [facility] Denis BMI Calculated 2019-03-27 15:18:00 Memori al [place] Height 2019-03-27 15:18:00 165.1 cm [facility] Temperature Oral (F) 2019-03-27 15:18:00 98.4 F [facility] Heart Rate 2019-03-27 15:18:00 [facility] Systolic (mm Hg) 2019-03-27 15:18:00 Turner rial Sullivan Diastolic (mm Hg) 2019-03-27 15:18:00 Mem orial [place] Height 2019-01-02 19:16:00 165.1 cm [facility] BMI Calculated 2019-01-02 19:16:00 Memori al [place] Weight 2019-01-02 19:16:00 [facility] Heart Rate 2019-01-02 19:16:00 [facility] Denis Systolic (mm Hg) 2019-01-02 19:16:00 Turner rial Sullivan Diastolic (mm Hg) 2019-01-02 19:16:00 Mem orial Denis Height 2019-01-02 14:26:00 167.01 cm [facility] BMI Calculated 2019-01-02 14:26:00 Memori al [place] Weight 2019-01-02 14:26:00 [facility] Heart Rate 2019-01-02 14:26:00 [facility] Temperature Oral (F) 2019-01-02 14:26:00 97.9 F [facility] Systolic (mm Hg) 2019-01-02 14:26:00 Turner rial Denis Diastolic (mm Hg) 2019-01-02 14:26:00 Mem orial Denis Systolic (mm Hg) 2018-07-18 18:33:00 Turner rial Denis Diastolic (mm Hg) 2018-07-18 18:33:00 Mem orial [place] Heart Rate 2018-07-18 18:33:00 [facility] Denis Weight 2018-07-18 18:33:00 [facility] BMI Calculated 2018-06-11 18:31:00 Memori al Denis Weight 2018-06-11 18:31:00 [facility] Systolic (mm Hg) 2018-06-11 18:31:00 Turner rial Sullivan Diastolic (mm Hg) 2018-06-11 18:31:00 Mem orial Denis Height 2018-06-11 18:31:00 170.18 cm [facility] Temperature Oral (F) 2018-06-11 18:31:00 98.3 F [facility] Heart Rate 2018-06-11 18:31:00 [facility] Weight 2018-01-10 16:14:00 [facility] Denis Height 2018-01-10 16:14:00 170.18 cm [facility] BMI Calculated 2018-01-10 16:14:00 Memori al [place] Heart Rate 2018-01-10 16:14:00 [facility] Denis Systolic (mm Hg) 2018-01-10 16:14:00 Turner rial Denis Diastolic (mm Hg) 2018-01-10 16:14:00 Mem orial Sullivan BMI Calculated 2018-01-09 15:06:00 Memori al [place] Height 2018-01-09 15:06:00 170.18 cm [facility] Denis Weight 2018-01-09 15:06:00 [facility] Denis Systolic (mm Hg) 2018-01-09 15:06:00 Turner rial Sullivan Diastolic (mm Hg) 2018-01-09 15:06:00 Mem orial Denis Heart Rate 2018-01-09 15:06:00 [facility] Denis Temperature Oral (F) 2018-01-09 15:06:00 97.9 F [facility] Weight 2016-11-14 16:17:00 [facility] Denis Height 2016-11-14 16:17:00 170.18 cm [facility] Denis BMI Calculated 2016-11-14 16:17:00 Memori al Denis Respitory Rate 2015-12-31 01:25:00 Memori al Denis Systolic (mm Hg) 2015-12-31 00:50:00 Utrner rial Sullivan Respitory Rate 2015-12-31 00:50:00 Memori al [place] Heart Rate 2015-12-31 00:50:00 [facility] Systolic (mm Hg) 2015-12-31 00:40:00 Turner rial Sullivan Respitory Rate 2015-12-31 00:40:00 Memori al [place] Heart Rate 2015-12-31 00:40:00 [facility] Denis Heart Rate 2015-12-31 00:30:00 [facility] Systolic (mm Hg) 2015-12-31 00:30:00 Turner rial Denis Temperature Oral (F) 2015-12-30 23:50:00 37.1 Linda [facility] Height 2015-12-30 19:23:00 169 cm [facility] Weight 2015-12-30 19:23:00 [facility] Denis Temperature Oral (F) 2015-12-30 19:23:00 36.6 Linda [facility] Denis Height 2015-12-29 14:13:00 170 cm [facility] Densi Weight 2015-12-29 14:13:00 [facility] Denis Procedures Procedure Date / Time Performed Performing Clinician [facility] e Diabetic retinal eye 2019-12-11 06:00:00 Jourdan Barrios exam<sup>1</sup> Mammogram 2017-05-05 05:00:00 Aylin hunt Colonoscopy<sup>2</sup> 2016-11-17 06:00:00 Turner rial Denis OPEN REDUCTION INTERNAL 2015-12-30 22:13:00 Jose Francisco Johnson Memo rial Denis FIXATION RADIUS INTRA-ARTICULAR W/3 FRAGMENTS 50010 (Right)<sup>1</sup> Repair of 2015-12-30 06:00:00 Aylin hunt wrist<sup>1</sup> skin cancer removed from 2011-10-22 00:00:00 Mem orial Denis arm Skin cancer of [facility] arm<sup>2</sup> Procedure<sup>2</sup> [facility] ermann Tubal ligation [facility] Eye operation [facility] Biopsy of breast [facility] bilateral radial [facility] kerototomy bilateral tubal ligation Memoria l Denis colonoscopy [facility] Encounters Start End Encounter Admission Attending Care Care Encounter Source Date/Time Date/Time Type Type Clinicians Facility Department ID 2021-09-20 2021-09-20 Outpatient [facility], [facility] [id number] [place] 00:00:00 00:00:00 RAZIUDDIN 834 Meth aiden 2021-09-12 2021-09-13 Between nullFlavo [facility] [id number] Memoria 14:18:24 14:18:24 Visit r Medicine 62 l Carrillo Zhang n 2021-09-12 2021-09-13 Between nullFlavo [facility] [id number] Memoria 00:56:47 00:56:47 Visit r Medicine 61 l Carrillo Zhang n 2021-09-09 2021-09-10 Outpatient nullFlavo [facility] 3 [id number] Memoria 20:00:00 05:59:59 r Medicine 52 l Vizcainojoanne Zhang n 2021-09-06 2021-09-08 Phone nullFlavo [facility] [id number] Memoria 21:38:38 05:59:59 Message r Medicine 13 l Carrillo Zhang n 2021-09-07 2021-09-07 Outpatient SUDARSHAN [facility] [id number] [place] 00:00:00 00:00:00 MARY 513 Method i 2021-09-05 2021-09-06 Between nullFlavo [facility] [id number] Memoria 15:33:59 15:33:59 Visit r Medicine 59 l Carrillo Zhang n 2021-07-14 2021-07-26 Inpatient SOLIPURAM, [facility] [id number] [place] 00:00:00 00:00:00 MICHELLE 329 Method i 2021-07-13 2021-07-13 Outpatient OPFARRAH, [facility] [id number] [place] 00:00:00 00:00:00 KRISTIAN 104 Method i 2021-06-30 2021-06-30 Outpatient [facility] [id number] [place] 00:00:00 00:00:00 RAZIUDDIN 273 Meth aiden 2021-06-07 2021-06-07 Outpatient EKERUO, [facility] [id number] [place] 00:00:00 00:00:00 MARY 787 Method i 2021-06-07 2021-06-07 Outpatient DAOURA, [facility] [id number] [place] 00:00:00 00:00:00 NILESH 546 Method i 2021-05-19 2021-05-26 Inpatient MATHIVANAN, [facility] [id number] [place] 00:00:00 00:00:00 COURTNEY 275 Method i 2021-05-12 2021-05-12 Outpatient AHMED, [facility] [id number] [place] 00:00:00 00:00:00 RAZIUDDIN 199 Meth aiden 2021-05-11 2021-05-11 Outpatient EKERUO, [facility] [id number] [place] 00:00:00 00:00:00 MARY 640 Method i 2021-05-06 2021-05-06 Outpatient EKERUO, [facility] [id number] [place] 00:00:00 00:00:00 MARY 435 Method i 2021-05-06 2021-05-06 Outpatient EKERUO, [facility] [id number] [place] 00:00:00 00:00:00 MARY 537 Method i 2021-05-03 2021-05-03 Outpatient EKERUO, [facility] [id number] [place] 00:00:00 00:00:00 MARY 709 Method i 2021-04-08 2021-04-21 Inpatient SOLIPURAM, [facility] [id number] [place] 00:00:00 00:00:00 MICHELLE 685 Method i 2021-03-09 2021-03-09 Outpatient AHMED, [facility] [id number] [place] 00:00:00 00:00:00 RAZIUDDIN 101 Meth aiden 2021-02-24 2021-02-24 Outpatient [facility] [id number] Memoria 01:00:00 04:59:00 r Denis 58 l [place] Karen 2021-02-23 2021-02-23 Outpatient AHMED, [facility] [id number] [facility] 20:00:00 23:59:00 RAZIUDDIN 2021-02-10 2021-02-10 Outpatient ADRIANA, [facility] [id number] [place] 00:00:00 00:00:00 RAZIUDDIN 598 Meth aiden 2021-02-03 2021-02-08 Inpatient MARY ALICE, [facility] [id number] [place] 00:00:00 00:00:00 COURTNEY 060 Method i 2021-01-20 2021-01-20 Outpatient [facility] [id number] [place] 00:00:00 00:00:[address] 2021-01-18 2021-01-19 Outpatient nullFlavo [facility] 3 [id number] Memoria 19:30:00 04:59:59 r Medicine 51 l Carrillo Zhang n 2021-01-18 2021-01-18 Outpatient [facility] [id number] [place] 00:00:00 00:00:00 398 Method i 2021-01-14 2021-01-15 Between nullFlavo [facility] [id number] Memoria 13:38:03 13:38:03 Visit r Medicine 57 l Carrillo Zhang n 2021-01-12 2021-01-12 Outpatient ADRIANA, [facility] [id number] [place] 00:00:00 00:00:00 RAZIUDDIN 554 Meth aiden 2020-12-31 2021-01-05 [id number] [place] 00:00:00 00:00:00 COURTNEY 541 Method i 2020-12-17 2020-12-28 Inpatient MARY ALICE, [facility] Vidya [id number] [place] 00:00:00 00:00:00 COURTNEY 559 Method i 2020-10-11 2020-10-18 Inpatient MARY ALICE, [facility] [id number] [place] 00:00:00 00:00:00 COURTNEY 271 Method i 2020-09-15 2020-09-16 Outpatient nullFlavo [facility] 3 [id number] Memoria 16:30:00 05:59:59 r Medicine 50 l Carrillo davis 2020 2020-09-07 Inpatient SOLIPURAM, [facility] [id number] [place] 00:00:00 00:00:00 MICHELLE 464 Method i 2020-08-13 2020-09-01 Inpatient CAMILLE [facility] [id number] [place] 00:00:00 00:00:00 MICHELLE 557 Method i 2020-08-13 2020-08-14 Outpt Diag nullFlavo [facility] [id number] Memoria 18:10:00 04:59:00 Services r Outpatient 06 l Imaging [place] 2020-08-11 2020-08-12 Between nullFlavo [facility] [id number] Memoria 17:58:19 17:58:19 Visit r Medicine 56 l Carrillo Zhang n 2020-08-03 2020-08-04 Outpatient nullFlavo [facility] 3 [id number] Memoria 15:15:00 04:59:59 r Medicine 49 l Carrillo Zhang n 2020-06-22 2020-06-23 Outpt Diag nullFlavo [facility] [id number] Memoria 17:02:00 04:59:00 Services r Outpatient 05 l Imaging Denis [place] 2020-06-17 2020-06-17 Ambulatory nullFlavo [facility] [id number] Memoria 19:00:00 19:00:00 Pre-Reg r Nephrology 46 l Carrillo Zhang n 2020-06-10 2020-06-10 Outpatient [facility] [id number] Memoria 11:15:00 11:15:00 47 l Denis 2020-06-02 2020-06-03 Outpatient nullFlavo [facility] [id number] Memoria 19:45:00 04:59:59 r Nephrology 48 l Carrillo Zhang n 2020-05-20 2020-05-20 Outpatient MANGIN, [facility] [id number] [place] 00:00:00 00:00:00 FABIOLA 832 Method i 2020-03-23 2020-03-25 Phone nullFlavo [facility] [id number] Memoria 16:17:50 04:59:59 Message r Nephrology 12 l Carrillo Zhang n 2020-03-18 2020-03-19 Outpatient nullFlavo [facility] [id number] Memoria 19:00:00 04:59:59 r Nephrology 41 l Carrillo Zhang n 2020-03-08 2020-03-10 Phone nullFlavo MG [id number] Memoria 18:35:51 04:59:59 Message r Nephrology 11 leonard Watson Denis 2020-02-11 2020-02-12 Outpatient nullFlavo [facility] 3 [id number] Memoria 15:15:00 04:59:59 r Medicine 45 leonard Zhang ryan 2020-02-11 2020-02-11 Ambulatory nullFlavo [facility] 3 [id number] Memoria 15:15:00 15:15:00 Pre-Reg r Medicine 44 l Carrillo Zhang ryan 2020-02-05 2020-02-07 Phone nullFlavo MG [id number] Memoria 13:23:32 04:59:59 Message r Nephrology 10 leonard Zhang ryan 2020-02-05 2020-02-06 Between nullFlavo [facility] [id number] Memoria 14:14:54 14:14:54 Visit r Medicine 52 leonard Rameycora davis 2020-02-05 2020-02-05 Outpatient [facility] [place] [id number] Memoria 11:30:00 11:30:00 43 leonard Denis 2020-02-02 2020-02-04 Phone nullFlavo [facility] [id number] Memoria 20:00:15 04:59:59 Message r Medicine 09 leonard Zhang ryan 2020-01-30 2020-02-01 Phone nullFlavo [facility] [id number] Memoria 17:18:28 04:59:59 Message r Medicine 08 leonard Zhang ryan 2020-01-30 2020-02-01 Phone nullFlavo [facility] [id number] Memoria 13:26:55 04:59:59 Message r Nephrology 07 leonard Zhang ryan 2019-12-16 2019-12-17 Outpatient nullFlavo [facility] 3 [id number] Memoria 20:15:00 05:59:59 r Medicine 42 leonard Rameycora davis 2019-11-13 2019-11-15 Phone nullFlavo [facility] [id number] Memoria 14:22:27 05:59:59 Message r Medicine 06 leonard Carrillo Rameycora davis 2019-10-17 2019-10-19 Phone nullFlavo [facility] [id number] Memoria 16:06:04 05:59:59 Message r Medicine 05 leonard davis 2019-10-02 2019-10-03 Between nullFlavo [facility] [id number] Memoria 20:05:03 20:05:03 Visit r Nephrology 45 leonard Barrios 2019-10-02 2019-10-03 Outpatient nullFlavo [facility] [id number] Memoria 20:45:00 05:59:59 r Nephrology 38 leonard davis 2019-09-26 2019-09-27 Between nullFlavo MG [id number] Memoria 00:07:10 00:07:10 Visit r Nephrology 43 leonard Barrios 2019-09-25 2019-09-25 Outpatient [facility] IE [id number] Memoria 09:00:00 09:00:00 39 leonard Barrios 2019-09-16 2019-09-17 Between nullFlavo [facility] [id number] Memoria 21:47:12 21:47:12 Visit r Medicine 41 leonard Zhang ryan 2019-08-19 2019-08-20 Between nullFlavo [facility] [id number] Memoria 22:13:13 22:13:13 Visit r Medicine 40 leonard davis 2019-08-15 2019-08-16 Outpatient nullFlavo [facility] 3 [id number] Memoria 14:45:00 04:59:59 r Medicine 40 leonard davis 2019-08-07 2019-08-07 Ambulatory nullFlavo [facility] 3 [id number] Memoria 16:00:00 16:00:00 Pre-Reg r Medicine 36 leonard Zhang ryan 2019-07-31 2019-08-01 Outpatient nullFlavo [facility] [id number] Memoria 15:00:00 04:59:59 r Nephrology 35 leonard davis 2019-07-31 2019-07-31 Outpatient [facility] IE [id number] Memoria 12:00:00 12:00:00 37 leonard Barrios 2019-07-03 2019-07-05 Phone nullFlavo [facility] [id number] Memoria 15:15:06 04:59:59 Message r Medicine 04 leonard Zhang ryan 2019-07-03 2019-07-05 Phone nullFlavo [facility] [id number] Memoria 15:10:51 04:59:59 Message r Nephrology 03 leonard davis 2019-07-03 2019-07-03 [place] [id number] Memoria 20:00:00 20:00:00 Pre-Reg r Nephrology 34 leonard davis 2019-06-29 2019-06-30 Between nullFlavo [facility] [id number] Memoria 20:15:16 20:15:16 Visit r Nephrology 34 leonard Rameyann 2019-06-11 2019-06-13 Phone nullFlavo MG [id number] Memoria 15:29:54 04:59:59 Message r Nephrology 02 leonard Barrios 2019-06-12 2019-06-12 [place] [id number] Memoria 16:30:00 16:30:00 Pre-Reg r Nephrology 29 leonard davis 2019-06-12 2019-06-12 [place] [id number] Memoria 16:15:00 16:15:00 Pre-Reg r Nephrology 30 leonard davis 2019-06-12 2019-06-12 Ambulatory nullFlavo [facility] 3 [id number] Memoria 15:15:00 15:15:00 Pre-Reg r Medicine 31 leonard davis 2019-06-09 2019-06-10 [facility] [id number] [place] 10:05:00 17:55:00 [facility] 2019-05-12 2019-05-14 [facility] [id number] [place] 21:36:00 19:00:00 EDUIN [facility] 2019-05-12 2019-05-13 Outpatient nullFlavo [facility] [id number] Memoria 20:40:00 04:59:59 r Care 33 leonard Rameyann 2019-03-27 2019-03-28 Outpatient nullFlavo [facility] Family 3 [id number] [facility] 15:15:00 04:59:59 r Medicine 32 leonard davis 2019-01-05 2019-01-06 Between nullFlavo [facility] Family [id number] Memoria 19:00:16 19:00:16 Visit r Medicine 29 leonard Zhang ryan 2019-01-02 2019-01-03 Between nullFlavo [facility] [id number] Memoria 15:02:37 15:02:37 Visit r Nephrology 27 l Carrillo Zhang n 2019-01-02 2019-01-03 Outpatient nullFlavo [facility] [id number] Memoria 18:45:00 04:59:59 r Nephrology 28 l Carrillo davis 2019-01-02 2019-01-03 Outpatient nullFlavo [facility] Family 3 [id number] Memoria 14:15:00 04:59:59 r Medicine 22 l Carrillo Zhang ryan 2018-12-31 2019-01-01 Between nullFlavo MG [id number] Mem[facility] 23:59:47 23:59:47 Visit r Nephrology 26 l Carrillo Zhnag ryan 2018-12-27 2018-12-28 Between nullFlavo MG [id number] [facility] 22:00:33 22:00:33 Visit r Nephrology 24 leonard Zhang ryan 2018-12-27 2018-12-28 Between nullFlavo MG [id number] [facility] 04:48:44 04:48:44 Visit r Nephrology 23 l Carrillo Zhang ryan 2018-11-14 2018-11-14 Ambulatory nullFlavo [facility] [id number] Memoria 20:30:00 20:30:00 Pre-Reg r Nephrology 27 leonard Zhang ryan 2018-11-14 2018-11-14 Ambulatory nullFlavo [facility] [id number] Memoria 18:40:00 18:40:00 Pre-Reg r Nephrology 24 leonard Zhang ryan 2018-11-07 2018-11-07 Ambulatory nullFlavo [facility] [id number] Memoria 15:30:00 15:30:00 Pre-Reg r Internal 25 leonard Vizcaino 2018-07-11 2018-08-10 Ambulatory nullFlavo [facility] [id number] Memoria 12:45:00 12:45:00 Pre-Reg r Internal 23 leonard Vizcaino 2018-07-18 2018-07-19 Outpatient nullFlavo [facility] [id number] Memoria 19:15:00 04:59:59 r Nephrology 26 l Carrillo Zhang ryan 2018-07-18 2018-07-19 Outpatient nullFlavo [facility] [id number] Memoria 18:00:00 04:59:59 r Nephrology 21 l Carrillo Vicente davis 2018-06-11 2018-06-12 Outpatient nullFlavo [facility] 3 [id number] Memoria 18:30:00 04:59:59 r Medicine 20 l Carrillo Zhang n 2018-01-10 2018-01-11 Outpatient nullFlavo [facility] [id number] Memoria 16:00:00 04:59:59 r Nephrology 19 leonard Zhang n 2018-01-09 2018-01-10 Outpatient nullFlavo [facility] 3 [id number] Memoria 15:00:00 04:59:59 r Medicine 18 l Carrillo Zhang n 2017-07-19 2017-07-19 Outpatient [facility] [id number] Memoria 10:40:00 10:40:00 16 leonard Barrios 2017-06-27 2017-06-27 Outpatient [facility] [id number] Memoria 11:30:00 11:30:00 17 leonard Barrios 2017-03-01 2017-03-01 Outpatient MHIE [facility] [id number] Memoria 11:40:00 11:40:00 11 leonard Barrios 2016-12-26 2016-12-26 Outpatient [facility] [id number] Memoria 14:30:00 14:30:00 15 leonard Barrios 2016-11-27 2016-11-27 Outpatient [facility]IE [facility] [id number] Memoria 10:00:00 10:00:00 08 leonard Barrios 2016-11-17 2016-11-17 Bedded nullFlavo [facility] [id number] Memoria 11:48:35 14:30:00 Outpatient connie Barrios 13 l Bhavani Jones 2016-11-09 2016-11-09 Outpatient [facility] [id number] Memoria 13:15:00 13:15:00 14 leonard Barrios 2016-10-18 2016-10-18 Outpatient MHIE [facility] [id number] Memoria 09:30:00 09:30:00 12 leonard Barrios 2016-10-18 2016-10-18 Outpatient MHIE MHIE [id number] Memoria 09:30:00 09:30:00 13 leonard Barrios 2016-10-12 2016-10-12 Outpatient MHIE [facility] [id number] Memoria 10:20:00 10:20:00 09 leonard Barrios 2016-07-13 2016-07-13 Outpatient [facility]IE [facility] [id number] Memoria 13:00:00 13:00:00 04 l Denis 2016-05-24 2016-05-24 Outpatient [facility] [id number] Memoria 11:15:00 11:15:00 06 leonard Sullivan 2016-04-13 2016-05-13 OP Therapy nullFlavo SMR [id number] Memoria 13:00:00 04:59:00 Patients r Girish 03 l Benji Barrios 2016-03-14 2016-04-13 OP Therapy nullFlavo SMR [id number] Memoria 17:39:00 04:59:00 Patients r Girish 02 l Trace Denis 2016-03-09 2016-04-08 OP Therapy nullFlavo [facility] [id number] Memoria 19:00:00 04:59:00 Patients r [place] 01 leonard Denis 2016-03-13 2016-03-14 Outpt Diag nullFlavo [facility] [id number] Memoria 16:14:00 04:59:00 Services r Outpatient 04 l Imaging Denis [place] 2016-02-08 2016-03-09 OP Therapy nullFlavo [facility] Sugar [id number] Memoria 19:00:00 04:59:00 Patients r [place] 00 leonard Denis 2016-03-02 2016-03-02 [facility] [id number] Memoria 10:20:00 10:20:00 01 leonard Denis 2016-02-29 2016-03-01 Outpt Diag nullFlavo [facility] [id number] Memoria 14:59:00 04:59:00 Services r Outpatient 03 l Imaging Denis Britt[place] 2016-01-20 2016-01-21 Outpt Diag nullFlavo [facility] [id number] Memoria 18:11:00 04:59:00 Services r Outpatient 01 l Imaging Sullivan [place] 2015-12-30 2015-12-30 Outpatient nullFlavo [facility] [id number] Memoria 12:50:31 19:25:00 r leonard Sullivan 2015-11-30 2015-12-01 Outpt Diag nullFlavo [facility] [id number] Memoria 12:58:00 05:59:00 Services r Outpatient 00 l Imaging Denis [place] 2015-11-19 2015-11-19 Outpatient [facility] [id number] Memoria 10:15:00 10:15:00 02 l Denis 2015-09-02 2015-09-02 Outpatient [facility] [id number] Memoria 11:30:00 11:30:00 00 l Denis 2013-12-18 2013-12-18 Outpatient Gio [facility] [id number] Memoria 01:16:00 05:59:00 r Denis [id number] l [place] 1 Karen nn 2013-12-17 2013-12-17 [facility] [id number] Memoria 19:16:00 19:16:00 r [place] 01 l Sullivan 2013-12-02 2013-12-02 [facility] [id number] Memoria 19:43:00 19:43:00 r [place] 00 l Sullivan Results Test Description Test Time Test Comments Results Result Comments Source SARS-CoV-2 (COVID-19) RNA [Presence] in Respiratory sp ecimen by 2021-07-14 22:34:30 DANIEL with probe detection Test Item Value Reference Range Interpretation Comme nts SARS-CoV-2 (COVID-19) RNA [Presence] in Respiratory Not detected No t-Detected specimen by DANIEL with probe detection (test code = 35276-3) Whether patient is employed in a healthcare setting (test code = 77733-0) Whether the patient has symptoms related to condition of interest (test code = 51723-6) Patient was hospitalized because of this condition (test code = 39616-4) Whether the patient was admitted to intensive care unit (ICU) for condition of interest (test code = 13839-4) Whether patient resides in a congregate care setting (test code = 29049-9) SARS-CoV-2 (COVID-19) RNA [Presence] in Respiratory specimen by DANIEL with probe [id number] 22:35:42 Test Item Value Reference Range Interpretation Comments SARS-CoV-2 (COVID-19) RNA Not detected Not-Detected [Presence] in Respiratory specimen by DANIEL with probe detection (test code = 86309-2) Whether patient is employed in a healthcare setting (test code = 21925-5) Whether the patient has symptoms related to condition of interest (test code = 14147-7) Patient was hospitalized because of this condition (test code = 11182-5) Whether the patient was admitted to intensive care unit (ICU) for condition of interest (test code = 59223-1) Whether patient resides in a congregate care setting (test code = 31983-0) SARS-CoV-2 (COVID-19) RNA [Presence] in Respiratory specimen by DANIEL with probe dqdbngrof4167-89-94 22:46:10 Test Item Value Reference Range Interpretation Comments SARS-CoV-2 (COVID-19) RNA Not detected Not-Detected [Presence] in Respiratory specimen by DANIEL with probe detection (test code = 43872-2) Whether patient is employed in a healthcare setting (test code = 96725-6) Whether the patient has symptoms related to condition of interest (test code = 60984-7) Patient was hospitalized because of this condition (test code = 36309-0) Whether the patient was admitted to intensive care unit (ICU) for condition of interest (test code = 39201-4) Whether patient resides in a congregate care setting (test code = 01987-3) SARS-CoV-2 (COVID-19) RNA [Presence] in Respiratory specimen by DANIEL with probe dwgexgtvi9010-50-28 01:54:24 Test Item Value Reference Range Interpretation Comments SARS-CoV-2 (COVID-19) RNA Not detected Not-Detected [Presence] in Respiratory specimen by DANIEL with probe detection (test code = 82574-4) Whether patient is employed in a healthcare setting (test code = 95979-6) Whether the patient has symptoms related to condition of interest (test code = 80124-1) Patient was hospitalized because of this condition (test code = 47915-8) Whether the patient was admitted to intensive care unit (ICU) for condition of interest (test code = 16519-0) Whether patient resides in a congregate care setting (test code = 86350-4) SARS-CoV-2 (COVID-19) RNA [Presence] in Respiratory specimen by DANIEL with probe mqbgkmrfk7260-77-30 21:44:06 Test Item Value Reference Range Interpretation Comments SARS-CoV-2 (COVID-19) RNA Not detected Not-Detected [Presence] in Respiratory specimen by DANIEL with probe detection (test code = 18541-4) Whether patient is employed in a healthcare setting (test code = 38612-4) Whether the patient has symptoms related to condition of interest (test code = 68045-9) Patient was hospitalized because of this condition (test code = 23453-2) Whether the patient was admitted to intensive care unit (ICU) for condition of interest (test code = 25097-1) Whether patient resides in a congregate care setting (test code = 70297-5) SARS-CoV-2 (COVID-19) RNA [Presence] in Respiratory specimen by DANIEL with probe fbfuntavo1199-91-65 00:36:59 Test Item Value Reference Range Interpretation Comments SARS-CoV-2 (COVID-19) RNA Not detected Not-Detected [Presence] in Respiratory specimen by DANIEL with probe detection (test code = 34659-8) SARS-CoV-2 (COVID-19) RNA [Presence] in Respiratory specimen by DANIEL with probe bqrqynfgs6680-33-71 17:35:35 Test Item Value Reference Range Interpretation Comments SARS-CoV-2 (COVID-19) RNA Not detected Not-Detected [Presence] in Respiratory specimen by DANIEL with probe detection (test code = 18308-5) SARS-CoV-2 (COVID-19) RNA [Presence] in Respiratory specimen by DANIEL with probe enztvfqor4177-78-05 18:03:30 Test Item Value Reference Range Interpretation Comments SARS-CoV-2 (COVID-19) RNA Not detected Not-Detected [Presence] in Respiratory specimen by DANIEL with probe detection (test code = 31106-9) SARS-CoV-2 (COVID-19) RNA [Presence] in Respiratory specimen by DANIEL with probe zvfwismwk4023-68-13 10:06:03 Test Item Value Reference Range Interpretation Comments SARS-CoV-2 (COVID-19) RNA Not detected Not-Detected [Presence] in Respiratory specimen by DANIEL with probe detection (test code = 70650-9) SARS-CoV-2 (COVID-19) RNA [Presence] in Respiratory specimen by DANIEL with probe ldtmvnien1003-84-52 05:11:58 Test Item Value Reference Range Interpretation Comments SARS-CoV-2 (COVID-19) RNA Not detected Not-Detected [Presence] in Respiratory specimen by DANIEL with probe detection (test code = 79759-6) SARS-CoV-2 (COVID-19) RNA [Presence] in Respiratory specimen by DANIEL with probe qjvxajkhr9067-16-71 03:34:16 Test Item Value Reference Range Interpretation Comments SARS-CoV-2 (COVID-19) RNA Not detected Not-Detected [Presence] in Respiratory specimen by DANIEL with probe detection (test code = 97928-6) SARS-CoV-2 (COVID-19) RNA [Presence] in Respiratory specimen by DANIEL with probe qfzzjipul3770-76-10 10:06:41 Test Item Value Reference Range Interpretation Comments SARS-CoV-2 (COVID-19) RNA Not detected Not-Detected [Presence] in Respiratory specimen by DANIEL with probe detection (test code = 61472-6) [id number] 12:33:00 Test Item Value Reference Range Interpretation Comments Chol (test code = Chol) 129 [facility]SPII8435-21-15 12:33:00 Test Item Value Reference Range Interpretation Comments HDL (test code = HDL) 37 [facility] HospitalOfpabypCMJCHG2011-51-89 12:33:00 Test Item Value Reference Range Interpretation Comments Trig (test code = Trig) 76 [facility] HospitalYlwihpeNSPTFR9015-21-31 12:33:00 Test Item Value Reference Range Interpretation Comments LDL (Calculated) (test code = LDL 76 (Calculated)) [facility] HospitalZlrgybhTBEKED7885-31-49 12:33:00 Test Item Value Reference Range Interpretation Comments CHD Risk (test code = CHD Risk) 3.5 [facility] HospitalOekvropVMALRU2149-36-10 12:33:00 Test Item Value Reference Range Interpretation Comments Non HDL Chol (test code = Non HDL Chol) 92 [facility] [place] DKDLS0375-10-74 14:47:00 Test Item Value Reference Range Interpretation Comments Vitamin D, 25-OH, Total (test code = 37 30-100 Vitamin D, 25-OH, Total) [facility] [place] VNIQI0577-32-84 14:47:00 Test Item Value Reference Range Interpretation Comments U Creat mg/dL (test code = U Creat 114 20-275 mg/dL) [facility] [place] [id number] 14:47:00 Test Item Value Reference Range Interpretation Comments U Prot/Creat (test code = U Prot/Creat) 430 21-161 [facility] [place] [id number] 14:47:00 Test Item Value Reference Range Interpretation Comments U Prot/Creat (test code = U 0.430 1 0.021-0.161 Prot/Creat) [place] 157890-08-06 14:47:00 Test Item Value Reference Range Interpretation Comments U Protein (test code = U Protein) 49 5-24 [place] 157890-08-06 14:47:00 Test Item Value Reference Range Interpretation Comments Glucose Lvl (test code = Glucose Lvl) 103 65-99 [place] 157890-08-06 14:47:00 Test Item Value Reference Range Interpretation Comments BUN (test code = BUN) 24 7-25 [place] 157890-08-06 14:47:00 Test Item Value Reference Range Interpretation Comments Creatinine Lvl (test code = Creatinine 1.32 0.50-0.99 Lvl) [place] 157890-08-06 14:47:00 Test Item Value Reference Range Interpretation Comments eGFR NON-AFR. SINGAPOREAN (test code = 43 eGFR NON-AFR. SINGAPOREAN) [facility]2020-08-06 14:47:00 Test Item Value Reference Range Interpretation Comments eGFR (test code = eGFR 50 ) [place] 157890-08-06 14:47:00 Test Item Value Reference Range Interpretation Comments B/C Ratio (test code = B/C Ratio) 18 6-22 [place] 157890-08-06 14:47:00 Test Item Value Reference Range Interpretation Comments Sodium Lvl (test code = Sodium Lvl) 138 135-146 [place] 157890-08-06 14:47:00 Test Item Value Reference Range Interpretation Comments Potassium Lvl (test code = Potassium 4.4 3.5-5.3 Lvl) [place] 157890-08-06 14:47:00 Test Item Value Reference Range Interpretation Comments Chloride Lvl (test code = Chloride Lvl) 102 98-110 [place] 157890-08-06 14:47:00 Test Item Value Reference Range Interpretation Comments CO2 (test code = CO2) 30 20-32 [place] 157890-08-06 14:47:00 Test Item Value Reference Range Interpretation Comments Calcium Lvl (test code = Calcium Lvl) 9.4 8.6-10.4 [place] 157890-08-06 14:47:00 Test Item Value Reference Range Interpretation Comments Phosphorus (test code = Phosphorus) 4.8 2.5-4.5 [facility]2020-08-06 14:47:00 Test Item Value Reference Range Interpretation Comments Albumin Lvl (test code = Albumin Lvl) 3.9 3.6-5.1 [facility]Rcj[facility]qrKZBPOSHMNH5702-77-55 14:47:00 Test Item Value Reference Range Interpretation Comments Plt Count Estimated (test code = DECREASED Plt Count Estimated) [facility] CenterUhydrnaZRRELNXXQI9119-32-22 14:47:00 Test Item Value Reference Range Interpretation Comments WBC X 10x3 (test code = WBC X 10x3) 7.2 3.8-10.8 [facility] CenterPbriwpdQZOPTLHQHW4729-05-13 14:47:00 Test Item Value Reference Range Interpretation Comments RBC X 10x6 (test code = RBC X 10x6) 3.71 3.80-5.10 [facility] CenterAmaveqdRIQTIHKAGG8691-31-99 14:47:00 Test Item Value Reference Range Interpretation Comments Hgb (test code = Hgb) 10.7 11.7-15.5 [facility] CenterSlfrlvpBFOFCFUTNH9486-93-62 14:47:00 Test Item Value Reference Range Interpretation Comments Hct (test code = Hct) 33.9 35.0-45.0 [facility] CenterChzrnrbJANOZIZVCG3640-81-09 14:47:00 Test Item Value Reference Range Interpretation Comments MCV (test code = MCV) 91.4 80.0-100.0 [facility] CenterOubehmuEAHJBBGNFK8038-10-33 14:47:00 Test Item Value Reference Range Interpretation Comments MCH (test code = MCH) 28.8 pg 27.0-33.0 [facility] CenterDcopjnpWJBXWGQMVN8811-95-21 14:47:00 Test Item Value Reference Range Interpretation Comments MCHC (test code = MCHC) 31.6 32.0-36.0 [place] 095710-08-06 14:47:00 Test Item Value Reference Range Interpretation Comments RDW (test code = RDW) 13.9 11.0-15.0 [facility] CenterVpvmeieCAORMQWGXO2947-79-78 14:47:00 Test Item Value Reference Range Interpretation Comments Platelet (test code = Platelet) 110 140-400 [facility] CenterTcjzaclKXDOEWUSTN2648-06-31 14:47:00 Test Item Value Reference Range Interpretation Comments MPV (test code = MPV) 11.7 7.5-12.5 [facility]YtzlexuIELEAWGUYI7183-92-37 14:47:00 Test Item Value Reference Range Interpretation Comments Neutrophils # (test code = Neutrophils 5414 6238-7823 #) [facility] HospitalEhjedrqBERVJVSJZF3051-49-75 14:47:00 Test Item Value Reference Range Interpretation Comments Lymphocytes # (test code = Lymphocytes 8976 748-3810 #) [facility]ItruntxIJDMCBHYEJ2267-05-43 14:47:00 Test Item Value Reference Range Interpretation Comments Monocytes # (test code = Monocytes #) 461 200-950 [facility] CenterLkxscvzHRBEKDPEBP5878-19-22 14:47:00 Test Item Value Reference Range Interpretation Comments Eosinophils # (test code = Eosinophils 122 15-500 #) [facility] HospitalAnyqzzkUQKKSUUNXP6488-93-81 14:47:00 Test Item Value Reference Range Interpretation Comments Basophils # (test code 50 See_Comment [Aut omated message] The = Basophils #) system which generated this result tra nsmitted reference range : <=200. The reference r edy was not used to int erpret this result as normal/abnormal . [facility] CenterJeznxlpTUQSLVPCPB3224-59-35 14:47:00 Test Item Value Reference Range Interpretation Comments Segs (test code = Segs) 75.2 [facility] HospitalIygzaucVZWLQXRRWH1227-42-08 14:47:00 Test Item Value Reference Range Interpretation Comments Lymphocytes (test code = Lymphocytes) 16.0 [facility] HospitalLdghhxeIWKFFAGLDW3601-43-94 14:47:00 Test Item Value Reference Range Interpretation Comments Monocytes (test code = Monocytes) 6.4 [facility] HospitalZmcjaygVHDUUOXTSE9728-28-80 14:47:00 Test Item Value Reference Range Interpretation Comments Eosinophils (test code = Eosinophils) 1.7 [facility] HospitalMnluzbiMUXNLHQKJI0097-83-60 14:47:00 Test Item Value Reference Range Interpretation Comments Basophils (test code = Basophils) 0.7 [facility]annREF[facility] NJPVIWF5039-57-97 14:47:00 Test Item Value Reference Range Interpretation Comments Result 2 (Urine Culture) See Result Comment (test code = Result 2 (Urine Culture)) [facility] [id number] 14:47:00 Test Item Value Reference Range Interpretation Comments UA Color (test code = UA Color) YELLOW [facility] [id number] 14:47:00 Test Item Value Reference Range Interpretation Comments UA Turbidity (test code = UA CLOUDY Turbidity) [facility] [id number] 14:47:00 Test Item Value Reference Range Interpretation Comments UA Spec Grav (test code = UA Spec 1.017 1 1.001-1.035 Grav) [facility] [id number] 14:47:00 Test Item Value Reference Range Interpretation Comments UA pH (test code = UA pH) 5.5 1 5.0-8.0 [facility] [id number] 14:47:00 Test Item Value Reference Range Interpretation Comments UA Glucose (test code = UA Glucose) NEGATIVE [facility] [id number] 14:47:00 Test Item Value Reference Range Interpretation Comments UA Bili (test code = UA Bili) NEGATIVE [facility] ONTDY2116-04-02 14:47:00 Test Item Value Reference Range Interpretation Comments UA Ketones (test code = UA Ketones) NEGATIVE [facility] [id number] 14:47:00 Test Item Value Reference Range Interpretation Comments UA Blood (test code = UA Blood) 1+ [facility] [id number] 14:47:00 Test Item Value Reference Range Interpretation Comments UA Protein (test code = UA Protein) 1+ [facility] [id number] 14:47:00 Test Item Value Reference Range Interpretation Comments UA Nitrite (test code = UA Nitrite) POSITIVE [facility] [id number] 14:47:00 Test Item Value Reference Range Interpretation Comments UA Leuk Est (test code = UA Leuk Est) 2+ [facility] [id number] 14:47:00 Test Item Value Reference Range Interpretation Comments UA WBC (test code = UA WBC) > OR = 60 [facility] [id number] 14:47:00 Test Item Value Reference Range Interpretation Comments UA RBC (test code = UA RBC) 0-2 [facility] [id number] 14:47:00 Test Item Value Reference Range Interpretation Comments UA Sq Epi (test code = UA Sq Epi) NONE SEEN [facility] [id number] 14:47:00 Test Item Value Reference Range Interpretation Comments UA Bacteria (test code = UA Bacteria) MANY [facility] [id number] 14:47:00 Test Item Value Reference Range Interpretation Comments UA Hyal Cast (test code = UA Hyal NONE SEEN Cast) [facility] AND [id number] 14:47:00 Test Item Value Reference Range Interpretation Comments UA Reflex (test code CULTURE INDICATED - = UA Reflex) RESULTS TO FOLLOW [facility] [id number] 14:47:00 Test Item Value Reference Range Interpretation Comments U Creat mg/dL (test code = U Creat 114 20-275 mg/dL) [facility] [id number] 14:47:00 Test Item Value Reference Range Interpretation Comments U Alb (test code = U Alb) 16.7 [facility] [id number] 14:47:00 Test Item Value Reference Range Interpretation Comments U Alb/Crea (test code = U Alb/Crea) 146 [facility] PROTEIN ELECTROPHORESIS-24HR [id number] 08:01:00 Test Item Value Reference Range Interpretation Comments CREATININE, 24 HOUR 1.45 g/24 h 0.50-2.15 URINE (test code = 26850065) PROTEIN/CREATININE 292 mg/g creat < OR = 114 H RATION (test code = 87597689) PROTEIN, TOTAL 24 HR UR 424 mg/24 h <150 H TEST PERFORMED (test code = 80557040) AT:[employer] [place] [address] [place] [address]CURJNNIECY BOYCE MD ALBUMIN (test code = 35 % 35632119) TNTOS-4-CYIEXKZHP (test 10 % code = 26966465) ZJDPK-3-DEVTTNUOH (test 12 % code = 04748760) BETA GLOBULINS (test 25 % code = 38972252) GAMMA GLOBULINS (test 18 % code = 57017979) INTERPRETATION (test Albumin and code = 32592278) various dann bulin fractions detected on proteinelectrop ho resis. No abnormal protei n bands (Bence-Jonespro te inuria) detected.TEST PERFORMED AT:[employer] [place] [address] [place] [address]YRBAGNIECY BOYCE MD NEUTROPHIL CYTOPLASMIC [id number] 05:19:00 Test Item Value Reference Range Interpretation Comments ANCA SCREEN (test NEGATIVE NEGATIVE ANCA Scree n includes code = 42511896) evaluation for p-ANCA, c-ANCA andatypi alexandre p-ANCA. [...] ofpat ients with Crohn's disease .TEST PERFORMED AT: [email or web address] [facility] [id number] [place] [address]XRJTLOSCAR EISENBERG MD,PHD ,MICHI COMPREHENSIVE METABOLIC [id number] 06:25:00 Test Item Value Reference Range Interpretation [...] MORPH (test code = RBCMOR) NORMAL URINE [id number] 09:53:00 Test Item Value Reference Range Interpretation [...] = VD) 36.0 ng/mL 30.0-100.0 SERUM PROTEIN LZRWSRGGSLOMB9789-27-56 06:20:00 Test Item Value Reference Range Interpretation Comments PROTEIN TOTAL (test 5.7 g/dL 6.1-8.1 L TEST PER FORMED AT:QUEST code = 26254586) DIAGNOSTICS -[id number] [facility] [place] [address]UQCWKNIECY BOYCE MD ALBUMIN (test code = 3.2 g/dL 3.8-4.8 L 19518803) VHVUU-2-CAJCCFQGC 0.4 g/dL 0.2-0.3 H (test code = 52593204) EWOSY-3-GEZHODOPY 0.8 g/dL 0.5-0.9 (test code = 28098555) BETA 1 GLOBULIN (test 0.5 g/dL 0.4-0.6 code = 53936234) BETA 2 GLOBULIN (test 0.2 g/dL 0.2-0.5 code = 21457154) GAMMA GLOBULINS (test 0.6 g/dL 0.8-1.7 L code = 77374041) INTERPRETATION (test Pattern consistent with code = 67139257) an acute ph ase reactionConsist ent with hypogammaglobul inemia. Serum free ligh tchains or urine immuno fixation should be consi dered ifplasma cell d yscrasias are a possible clinicaldiagnos is.TEST PERFORMED AT:[facility] [id number] [facility] [address]UDSVNNIECY BOYCE MD [id number] 06:13:00 Test Item Value Reference Range Interpretation Comments MAGNESIUM (test code = 48A) 1.7 mg/dL 1.8-2.4 L COMPREHENSIVE METABOLIC [id number] 06:13:00 Test Item Value Reference Range Interpretation [...] (test code = RBCMOR) NORMAL COMPREHENSIVE METABOLIC [id number] 05:30:00 Test Item Value Reference Range Interpretation [...] (test code = RBCMOR) NORMAL URINALYSIS WITH [id number] 06:44:00 Test Item Value Reference Range Interpretation [...] code = USPERM) /HPF NONE COMPREHENSIVE METABOLIC [id number] 05:24:00 Test Item Value Reference Range Interpretation [...] = RBCMOR) NORMAL U/S KIDNEY (RENAL)2019-06-06 23:20:42LOCATION: [id number]: 63-year-old female who presents with acute nontraumatic [...] jet was observed onthe color flow study.TROPONIN [id number] 07:14:00 Test Item Value Reference Range Interpretation Comments TROPONIN I (test code = A84) <0.015 ng/mL 0.000-0.045 COMPREHENSIVE METABOLIC [id number] 05:28:00 Test Item Value Reference Range Interpretation [...] (test code = RBCMOR) NORMAL COMPREHENSIVE METABOLIC [id number] 04:58:00 Test Item Value Reference Range Interpretation [...] (test code = MDIFF) NO NO CARDIAC [id number] 23:10:00 Test Item Value Reference Range Interpretation Comments TROPONIN I (test code = A84) <0.015 ng/mL 0.000-0.045 U/S VENOUS DOPPLER BALDO LOW [id number] 22:23:14LOCATION: [id number]: 63-year-old female who presents with bilateral leg swelling.COMMENT: [facility] imaging of the venous anatomy in both [...] thrombosis in either of thispatient's legs. CARDIAC [id number] 16:50:00 Test Item Value Reference Range Interpretation Comments TROPONIN I (test code = A84) <0.015 ng/mL 0.000-0.045 BRAIN NATRIURETIC [id number] 14:39:00 Test Item Value Reference Range Interpretation Comments proBNP (test code = PBNP) 1337 pg/mL 0-125 H THYROID PANEL/SCREEN (TSH)2019-06-04 12:05:00 Test Item Value Reference Range Interpretation Comments TSH (test code = A57) 0.989 uIU/mL 0.358-3.740 [id number] 12:02:00 Test Item Value Reference Range Interpretation Comments CPK (test code = 32A) 98 IU/L 26-192 AMYLASE AND [id number] 12:02:00 Test Item Value Reference Range Interpretation Comments AMYLASE (test code = 10A) 19 U/L 28-100 L LIPASE (test code = 60A) 67 IU/L 73-393 L COMPREHENSIVE METABOLIC [id number] 12:02:00 Test Item Value Reference Range Interpretation [...] code = 31A) 41 IU/L <=78 TROPONIN [id number] 11:57:00 Test Item Value Reference Range Interpretation Comments TROPONIN I (test code = A84) <0.015 ng/mL 0.000-0.045 XR CHEST 1 VIEW [id number] 11:55:22EXAM: XR CHEST 1 VIEW PORTABLE.LOCATION: D4.HISTORY: [id number]: Chest pain.COMPARISON: Radiograph dated 05/12/2019.TECHNIQUE: Single AP view of the chest was obtained. FINDINGS:The heart is enlarged in size. Small left pleural effusion and left basilaropacities are present. There is elevation of the right hemidiaphragm. No acuteosseous abnormality is identified.IMPRESSION:Small left pleural effusion with left basilar opacities, which may representatelectasis or infiltrates.Cardiomegaly. PRO TIME AND [id number] 11:43:00 Test Item Value Reference Range Interpretation [...] (test code = RBCMOR) NORMAL CBC WITH [id number] 15:29:00 Test Item Value Reference Range Interpretation [...] NORMAL (1.5-3 um) NORMAL PLTMOR) BASIC METABOLIC [id number] 15:26:00 Test Item Value Reference Range Interpretation [...] code = 09D) 9.2 mg/dL 8.3-9.5 CARDIAC [id number] 06:04:00 Test Item Value Reference Range Interpretation Comments TROPONIN I (test code = A84) <0.015 ng/mL 0.000-0.045 BASIC METABOLIC [id number] 05:52:00 Test Item Value Reference Range Interpretation [...] MORPH (test code = RBCMOR) NORMAL CARDIAC [id number] 23:08:00 Test Item Value Reference Range Interpretation Comments TROPONIN I (test code = A84) <0.015 ng/mL 0.000-0.045 CT DISSECTION [id number] 19:26:35Exam: CT thorax PE protocol.Location: H 12History: [id number]: Chest painTechnique: Enhanced spiral slices were taken [...] code = A57) 0.706 uIU/mL 0.358-3.740 LIVER [id number] 18:28:00 Test Item Value Reference Range Interpretation [...] = 31A) 21 IU/L <=78 BRAIN NATRIURETIC [id number] 18:19:00 Test Item Value Reference Range Interpretation Comments proBNP (test code = PBNP) 518 pg/mL 0-125 H [id number] 18:15:00 Test Item Value Reference Range Interpretation Comments MAGNESIUM (test code = 48A) 1.9 mg/dL 1.8-2.4 [id number] 17:40:00 Test Item Value Reference Range Interpretation Comments D-DIMER (test code = <200 ng/mL D-DU 0-234 DDI) D-DIMER COMMENT (test *Level to rule out code = DDCOM) DVT or PE: <235 ng/mL D-DU* CARDIAC [id number] 17:31:00 Test Item Value Reference Range Interpretation Comments TROPONIN I (test code = A84) <0.015 ng/mL 0.000-0.045 BASIC METABOLIC [id number] 17:27:00 Test Item Value Reference Range Interpretation [...] LMW Heparin. Order Code is ANTI-XA PROTHROMBIN [id number] 17:26:00 Test Item Value Reference Range Interpretation Comments PT (test code = 12.0 s 9.8-13.6 TT) INR (test code = 1.1 INR) INRH (test code = SUGGESTED INRH) THERAPEUTIC RANGE FOR INR: 2.5 - 3.5 For Patients with Prosthetic Valves or Patients with recurrent Thromboembolic Events 2.0 - 3.0 For Most Other Applications XR CHEST 1 VIEW [id number] 17:04:28Portable AP chest, 1 viewLocation Code: [id number] HISTORY: Chest painCOMPARISON: NoneCOMMENT: Mild atelectasis is present within the lung bases. The costophrenic angles aresharp. The cardiomediastinalsilhouette is unremarkable. The bones are intact.IMPRESSION: Mild bibasilar atelectasis. Otherwise, no acute abnormalityCHEM [id number] 16:51:00 Test Item Value Reference Range Interpretation Comments Creatinine Lvl (test code = Creatinine 1.15 0.50-1.40 Lvl) [facility]2017-01-24 16:51:00 Test Item Value Reference Range Interpretation Comments BUN (test code = BUN) 16 -22 [facility]2017-01-24 16:51:00 Test Item Value Reference Range Interpretation Comments Chloride Lvl (test code = Chloride Lvl) 109 95-109 [facility]2017-01-24 16:51:00 Test Item Value Reference Range Interpretation Comments Potassium Lvl (test code = Potassium 4.3 3.5-5.1 Lvl) [facility]2017-01-24 16:51:00 Test Item Value Reference Range Interpretation Comments Sodium Lvl (test code = Sodium Lvl) 144 135-145 [facility]2017-01-24 16:51:00 Test Item Value Reference Range Interpretation Comments CO2 (test code = CO2) 28 - [facility]2017-01-24 16:51:00 Test Item Value Reference Range Interpretation Comments Calcium Lvl (test code = Calcium Lvl) 8.4 8.5-10.5 [facility]2017-01-24 16:51:00 Test Item Value Reference Range Interpretation Comments AGAP (test code = AGAP) 11.3 10.0-20.0 [facility]2017-01-24 16:51:00 Test Item Value Reference Range Interpretation Comments Glucose Lvl (test code = Glucose Lvl) 109 70-99 [facility]2017-01-24 16:51:00 Test Item Value Reference Range Interpretation Comments eGFR (test code = eGFR) 52 [facility]
[2021-10-26 01:07] LABS: Urine Bacteria >50 /HPF (<20); Urine RBC <5 /HPF (NONE SEEN)
[2021-10-26 01:43] LABS: Urine Appearance TURBID (Clear); Urine Bilirubin NEGATIVE (Negative); Urine Blood 3+ (Negative); Urine Color YELLOW (Yellow); Urine Glucose NEGATIVE (Negative); Urine Microscopic Reflex NO UMIC; Urine Protein 2+ (Negative); Urine Urobilinogen 0.2 mg/dL (0.2-1.0); Urine pH 6.5 (5.0-7.0)
[2021-10-26] MEDS ORDERED: Levofloxacin500mg IV 0 MG/0 ML BAG IV ONE (02:08)
[2021-10-26 02:10] LABS: Protime INR 1.26
[2021-10-26 02:11] LABS: Absolute Lymphocytes (CBC) 1.6 K/uL (0.7-4.9); Hematocrit 24.1 % (36.0-45.0); Lymphocytes % 18.9 % (15.3-44.8); MPV 8.2 fL (7.6-11.3); RBC Red Blood Cell Count 2.37 M/uL (3.86-4.86)
[2021-10-26] MEDS ORDERED: AZTREONAM 1 GM/VIAL ONE (02:47)
[2021-10-26 02:48] LABS: SARS-COV-2 RT PCR NEGATIVE (NEGATIVE)
[2021-10-26 02:49] LABS: ALT/SGPT 32 U/L (12-78); AST/SGOT 24 U/L (15-37); Albumin 2.6 g/dL (3.4-5.0); Alkaline Phosphatase 220 U/L (45-117); BUN Blood Urea Nitrogen 58 mg/dL (7-18); Bicarbonate 23 mmol/L (21-32); Bilirubin Direct 0.4 mg/dL (0-0.2); Bilirubin Total 0.9 mg/dL (0.2-1.0); Glucose Level 112 mg/dL (74-106); Magnesium 2.5 mg/dL (1.8-2.4); NT PRO-BNP 11841 pg/mL (<125); Potassium 5.5 mmol/L (3.5-5.1); Protein, Total 6.9 g/dL (6.4-8.2); Sodium Level 138 mmol/L (136-145); Troponin (Emerg Dept Use Only) < 0.02 ng/mL (0.0-0.045)
--- NOTE | 2021-10-26 03:24 | EDPHYS ---
Physician Documentation [facility] Name: Kassie De Jesus Age: 66 yrs Sex: Female : 1955 Arrival Date: 10/25/2021 Time: 23:08 Bed 27 Private MD: ED Physician Chucho Granados HPI: 10/26 01:10 This 66 yrs old Female presents to ER via Wheelchair with complaints of Pain With mh7 Urination. 01:10 The patient presents to the emergency department with nausea, that is moderate, mh7 vomiting, that is intermittent, described as clear fluid. Onset: The symptoms/episode began/occurred 4 day(s) ago. Possible causes: unknown. The symptoms are aggravated by nothing. The symptoms are alleviated by nothing. Associated signs and symptoms: Pertinent positives: abdominal pain, dysuria, nausea, vomiting, Low back pain, Pertinent negatives: anorexia, belching, constipation, diarrhea, fever, flatulence, GI bleeding, hematuria, vaginal discharge. Severity of symptoms: At their worst the symptoms were moderate 3 day(s) ago, in the emergency department the symptoms are unchanged. Historical: - Allergies: 10/25 23:48 PENICILLINS; tw5 10/26 02:36 cefepime; al4 02:36 QUINOLONES; al4 - Home Meds: 10/25 23:48 midodrine 5 mg oral tab 2 tabs 3 times per day [Active]; sevelamer carbonate 800 mg tw5 oral tab 2 tabs 3 times per day [Active]; carvedilol 3.125 mg oral tab 1 tab 2 times per day [Active]; Eliquis 5 mg oral tab 1 tab 2 times per day [Active]; allopurinol 100 mg Oral tab 1 tab once daily [Active]; bumetanide 2 mg Oral tab 1 tab once daily [Active]; digoxin 125 mcg (0.125 mg) Oral tab 1 tab once daily [Active]; atorvastatin 10 mg oral tab 1 tab once daily [Active]; gabapentin 300 mg oral cap 1 cap BID [Active]; Colace 100 mg oral cap 1 cap once daily [Active]; Osteo Bi-Flex Triple Strength 750 mg-644 mg- 30 mg-1 mg oral tab [Active]; tramadol 100 mg Oral Tb24 1 tab once daily [Active]; - PMHx: 23:48 Dialysis; High Cholesterol; Hypertensive disorder; stage 4 kidney failure; tw5 - PSHx: 23:48 None; tw5 - Immunization history:: Flu vaccine is not up to date. - Social history:: Smoking status: Patient denies any tobacco usage or history of. ROS: 10/26 01:10 Constitutional: Negative for fever, chills, and weight loss, Eyes: Negative for injury, mh7 pain, redness, and discharge, ENT: Negative for injury, pain, and discharge, Neck: Negative for injury, pain, and swelling, Cardiovascular: Negative for chest pain, palpitations, and edema, Respiratory: Negative for shortness of breath, cough, wheezing, and pleuritic chest pain, MS/Extremity: Negative for injury and deformity, Skin: Negative for injury, rash, and discoloration, Neuro: Negative for headache, weakness, numbness, tingling, and seizure, Psych: Negative for depression, anxiety, suicide ideation, homicidal ideation, and hallucinations, Allergy/Immunology: Negative for hives, rash, and allergies, Endocrine: Negative for neck swelling, polydipsia, polyuria, polyphagia, and marked weight changes, Hematologic/Lymphatic: Negative for swollen nodes, abnormal bleeding, and unusual bruising. Exam: 01:10 Head/Face: Normocephalic, atraumatic. Eyes: Pupils equal round and reactive to light, mh7 extra-ocular motions intact. Lids and lashes normal. Conjunctiva and sclera are non-icteric and not injected. Cornea within normal limits. Periorbital areas with no swelling, redness, or edema. Neck: Trachea midline, no thyromegaly or masses palpated, and no cervical lymphadenopathy. Supple, full range of motion without nuchal rigidity, or vertebral point tenderness. No Meningismus. Chest/axilla: Normal chest wall appearance and motion. Nontender with no deformity. No lesions are appreciated. Cardiovascular: Regular rate and rhythm with a normal S1 and S2. No gallops, murmurs, or rubs. Normal PMI, no JVD. No pulse deficits. Respiratory: Lungs have equal breath sounds bilaterally, clear to auscultation and percussion. No rales, rhonchi or wheezes noted. No increased work of breathing, no retractions or nasal flaring. Abdomen/GI: Soft, non-tender, with normal bowel sounds. No distension or tympany. No guarding or rebound. No evidence of tenderness throughout. Skin: Warm, dry with normal turgor. Normal color with no rashes, no lesions, and no evidence of cellulitis. MS/ Extremity: Pulses equal, no cyanosis. Neurovascular intact. Full, normal range of motion. Neuro: Awake and alert, GCS 15, oriented to person, place, time, and situation. Cranial nerves II-XII grossly intact. Motor strength 5/5 in all extremities. Sensory grossly intact. Cerebellar exam normal. Normal gait. Psych: Awake, alert, with orientation to person, place and time. Behavior, mood, and affect are within normal limits. 01:10 Constitutional: The patient appears in no acute distress, alert, awake, uncomfortable. 01:10 Back: No spinal tenderness. No costovertebral tenderness. Full range of motion. [facility] Vital Signs: 10/25 23:45 BP 86 / 51; Pulse 65; Resp 22; Temp 97.6(TE); Pulse Ox 96% on 2 lpm NC; Weight 106.59 tw5 kg; Height 5 ft. 7 in. (170.18 cm); Pain 12/01; 10/26 00:00 BP 93 / 62; Pulse 76; Resp 20 S; Pulse Ox 100% on R/A; al4 00:30 BP 101 / 47; Pulse 71; Resp 20 S; Pulse Ox 100% on R/A; al4 01:00 BP 79 / 57; Pulse 71; Resp 20 S; Pulse Ox 100% on R/A; al4 01:45 BP 102 / 66; Pulse 66; Resp 20 S; Pulse Ox 100% on R/A; al4 02:30 BP 96 / 62; Pulse 73; Resp 20; Pulse Ox 100% ; al4 04:01 BP 106 / 71; Pulse 73; Resp 20; Pulse Ox 100% ; al4 05:15 BP 104 / 73; Pulse 100; Resp 20; Pulse Ox 99% ; al4 10/25 23:45 Body Mass Index 36.81 (106.59 kg, 170.18 cm) tw5 MDM: 03:21 Differential diagnosis: Nonspecific abd pain, gastritis, pancreatitis, UTI, 7 pyelonephritis. Data reviewed: vital signs, nurses notes, old medical records, lab test result(s), CBC, electrolytes, urinalysis, EKG, radiologic studies, CT scan, plain films. Data interpreted: Pulse oximetry: on room air is 100 %. Interpretation: normal. Counseling: I had a detailed discussion with the patient and/or guardian regarding: the historical points, exam findings, and any diagnostic results supporting the discharge/admit diagnosis, lab results, radiology results, the need for further work-up and treatment in the hospital. Response to treatment: the patient's symptoms have mildly improved after treatment. 03:24 Patient medically screened. [facility] 10/25 23:45 Order name: Urine Microscopic Only [facility] 10/25 23:45 Order name: Urine Microscopic Only; Complete Time: 01:47 [facility] 10/26 00:54 Order name: Basic Metabolic Panel [facility] 10/26 00:54 Order name: CBC with Diff; Complete Time: 02:18 [facility] 10/26 00:54 Order name: LFT's [facility] 10/26 00:54 Order name: Magnesium [facility] 10/26 00:54 Order name: NT PRO-BNP [facility] 10/26 00:54 Order name: PT-INR; Complete Time: 02:18 [facility] 10/26 00:54 Order name: Troponin (emerg Dept Use Only) [facility] 10/26 00:54 Order name: COVID-19/FLU A+B (Document "Date of Onset" if Symptomatic); Complete Time: [facility] 02:53 10/26 01:09 Order name: Urine Culture [facility] 10/26 01:38 Order name: Urinalysis; Complete Time: 01:47 [facility] 10/26 01:49 Order name: Blood Culture Adult (2) [facility] 10/26 00:54 Order name: XRAY Chest (1 view) [facility] 10/26 00:54 Order name: EKG; Complete Time: 00:55 [facility] 10/26 00:55 Order name: CT Stone Protocol [facility] 10/26 04:11 Order name: Comprehensive Metabolic Panel [facility] 10/26 04:11 Order name: Comprehensive Metabolic Panel [facility] 10/26 04:11 Order name: CONS Physician Consult [facility] 10/26 04:11 Order name: Renal [facility] 10/26 04:11 Order name: Comprehensive Metabolic Panel [facility] 10/26 04:11 Order name: Comprehensive Metabolic Panel [facility] 10/26 04:11 Order name: Comprehensive Metabolic Panel [facility] 10/26 04:17 Order name: Thyroid Stimulating Hormone [facility] 10/26 08:21 Order name: Glucose, Ancillary Testing [facility] 10/26 12:42 Order name: Glucose, Ancillary Testing [facility] 10/26 00:54 Order name: Cardiac monitoring; Complete Time: 02:28 [facility] 10/26 00:54 Order name: EKG - Nurse/Tech; Complete Time: 01:44 [facility] 10/26 00:54 Order name: IV Saline Lock; Complete Time: :44 [facility] 10/26 00:54 Order name: Labs collected and sent; Complete Time: :45 [facility] 10/26 00:54 Order name: O2 Per Protocol; Complete Time: :45 [facility] 10/26 00:54 Order name: O2 Sat Monitoring; Complete Time: :45 [facility] Administered Medications: 02:27 Not Given (Physician Discretion): LevaQUIN (levofloxacin) 500 mg 100 ml IVPB once over al4 60 mins 04:00 Drug: Azactam 1 grams Route: IVPB; Infused Over: 30 mins; Site: right antecubital; al4 04:32 Follow up: Response: No adverse reaction; IV Status: Completed infusion; IV Intake: al4 100ml Disposition Summary: 10/26/21 03:24 Hospitalization Ordered Hospitalization Status: Inpatient Admission [facility] Provider: Azar Frank Mariana Condition: Stable [facility] Problem: an ongoing problem [facility] Symptoms: have improved [facility] Bed/Room Type: Standard [facility] Location: [facility] ER HOLD(10/26/21 03:41) Room Assignment: ERHOLD-(10/26/21 03:41) Diagnosis - UTI/ Urinary tract infection, site not specified [facility] - End-stage renal disease on hemodialysis [facility] - Hyperkalemia [facility] Forms: - Medication Reconciliation Form [facility] - SBAR form [facility] Signatures: Dispatcher [employer] EDPA Priya Bailey RN RN Chucho Granados MD MD 7 Deana Engle 5 Abhi Lebron al4 Corrections: (The following items were deleted from the chart) 02:17 01:49 Urine Culture+BA.LAB.BRZ ordered. [facility] 03:41 03:24 Telemetry/MedSurg (Inpatient) [facility] 03:41 03:24 [facility] 04:17 04:11 Thyroid Stimulating Hormone ordered. EDMS EDMS
--- NOTE | 2021-10-26 03:24 | ER ---
Nurse's Notes [facility] Name: Kassie De Jesus Age: 66 yrs Sex: Female : 1955 Arrival Date: 10/25/2021 Time: 23:08 Bed 27 Private MD: Diagnosis: UTI/ Urinary tract infection, site not specified;End-stage renal disease on hemodialysis;Hyperkalemia Presentation: 10/25 23:46 Chief complaint: Patient states: "I was here Sunday and they did a Covid test, I had tw5 been vomiting. For the last several days I just feel lousy and my lower back hurts. I just feel I have a urinary tract infection.". Coronavirus screen: Vaccine status: Patient reports being unvaccinated. Ebola Screen: Patient negative for fever greater than or equal to 101.5 degrees Fahrenheit, and additional compatible Ebola Virus Disease symptoms Patient denies exposure to infectious person. Patient denies travel to an Ebola-affected area in the 21 days before illness onset. Initial Sepsis Screen: Does the patient meet any 2 criteria? Mean Arterial Pressure (MAP) < 65. Does the patient have a suspected source of infection? Yes: Dysuria/Frequency/Urgency/UTI. Risk Assessment: Do you want to hurt yourself or someone else? Patient reports no desire to harm self or others. Onset of symptoms is unknown. 23:46 Method Of Arrival: Wheelchair tw5 23:46 Acuity: LENI 3 tw5 Triage Assessment: 23:48 General: Appears in no apparent distress. uncomfortable, Behavior is calm, cooperative, tw5 appropriate for age. Pain: Complains of pain in low back area Pain currently is 3 out of 10 on a pain scale. Historical: - Allergies: 23:48 PENICILLINS; tw5 10/26 02:36 cefepime; al4 02:36 QUINOLONES; al4 - Home Meds: 10/25 23:48 midodrine 5 mg oral tab 2 tabs 3 times per day [Active]; sevelamer carbonate 800 mg tw5 oral tab 2 tabs 3 times per day [Active]; carvedilol 3.125 mg oral tab 1 tab 2 times per day [Active]; Eliquis 5 mg oral tab 1 tab 2 times per day [Active]; allopurinol 100 mg Oral tab 1 tab once daily [Active]; bumetanide 2 mg Oral tab 1 tab once daily [Active]; digoxin 125 mcg (0.125 mg) Oral tab 1 tab once daily [Active]; atorvastatin 10 mg oral tab 1 tab once daily [Active]; gabapentin 300 mg oral cap 1 cap BID [Active]; Colace 100 mg oral cap 1 cap once daily [Active]; Osteo Bi-Flex Triple Strength 750 mg-644 mg- 30 mg-1 mg oral tab [Active]; tramadol 100 mg Oral Tb24 1 tab once daily [Active]; - PMHx: 23:48 Dialysis; High Cholesterol; Hypertensive disorder; stage 4 kidney failure; tw5 - PSHx: 23:48 None; tw - Immunization history:: Flu vaccine is not up to date. - Social history:: Smoking status: Patient denies any tobacco usage or history of. Screenin:54 Abuse screen: Denies threats or abuse. Denies injuries from another. Abuse screen: tw5 Denies threats or abuse. Nutritional screening: No deficits noted. Tuberculosis screening: No symptoms or risk factors identified. Fall Risk Fall in past 12 months (25 points). IV access (20 points). Ambulatory Aid- None/Bed Rest/Nurse Assist (0 pts). Gait- Normal/Bed Rest/Wheelchair (0 pts) Mental Status- Oriented to own ability (0 pts). Total Smith Fall Scale indicates High Risk Score (45 or more points). Fall prevention measures have been instituted. Side Rails Up X 2 Placed Close to Nursing Station Frequent Obs/Assessments Occuring As available patient and family educated on Fall Prevention Program and Strategies. Assessment: 23:53 General: Patient states that she has missed two sessions of dialysis . 10/26 01:00 General: Appears in no apparent distress. comfortable, Behavior is calm, cooperative, al4 appropriate for age, patient states "my doctor sent me here because I had blood work this morning and missed my dialysis today and last Sunday because I wasn't feeling well." patient states she just "generally was not feeling good." patient states " I was vomiting Sunday and so I came in Sunday to get covid tested.". Pain: Complains of pain in back Pain currently is 4 out of 10 on a pain scale. Neuro: Level of Consciousness is awake, alert, obeys commands, Oriented to person, place, time. Cardiovascular: Heart tones present Capillary refill < 3 seconds Patient's skin is warm and dry. Respiratory: Airway is patent Respiratory effort is even, unlabored, Respiratory pattern is regular, symmetrical, Breath sounds are clear. GI: Abdomen is tender to palpation RUQ and LLQ. : Reports burning with urination, "pelvic pain on both sides". EENT: No signs and/or symptoms were reported regarding the EENT system. Derm: No signs and/or symptoms reported regarding the dermatologic system. Musculoskeletal: Swelling present in right leg and left leg patient states leg swelling is secondary to her kidney failure. 01:49 Reassessment: urine dipstick on hold because machine is down . al4 02:27 Reassessment: patient states she is allergic to Levaquin, cefepime, and penicillin - al4 physician aware. Levaquin not given. 04:00 Reassessment: Patient is alert, oriented x 3, equal unlabored respirations, skin al4 warm/dry/pink. patient ambulated to restroom with assistance. physician updated her on POC. 04:43 Reassessment: Patient is alert, oriented x 3, equal unlabored respirations, skin al4 warm/dry/pink. 06:00 Reassessment: patient moved to room 27. report given to ARMANDO tom. al4 06:36 Reassessment: patient educated on meropenem, and stated she does not have any allergies al4 or reactions to this med. she gave consent to give. Vital Signs: 10/25 23:45 BP 86 / 51; Pulse 65; Resp 22; Temp 97.6(TE); Pulse Ox 96% on 2 lpm NC; Weight 106.59 tw5 kg; Height 5 ft. 7 in. (170.18 cm); Pain 12/01; 10/26 00:00 BP 93 / 62; Pulse 76; Resp 20 S; Pulse Ox 100% on R/A; al4 00:30 BP 101 / 47; Pulse 71; Resp 20 S; Pulse Ox 100% on R/A; al4 01:00 BP 79 / 57; Pulse 71; Resp 20 S; Pulse Ox 100% on R/A; al4 01:45 BP 102 / 66; Pulse 66; Resp 20 S; Pulse Ox 100% on R/A; al4 02:30 BP 96 / 62; Pulse 73; Resp 20; Pulse Ox 100% ; al4 04:01 BP 106 / 71; Pulse 73; Resp 20; Pulse Ox 100% ; al4 05:15 BP 104 / 73; Pulse 100; Resp 20; Pulse Ox 99% ; al4 10/25 23:45 Body Mass Index 36.81 (106.59 kg, 170.18 cm) tw5 ED Course: 10/25 23:08 Patient arrived in ED. ag3 23:48 Triage completed. tw5 23:53 Arm band placed on right wrist. tw5 23:58 Napoleon Newton, ARMANDO is Primary Nurse. as6 10/26 00:40 Chucho Granados MD is Attending Physician. mh7 01:18 CT Stone Protocol In Process Unspecified. EDMS 01:44 Inserted saline lock: 20 gauge in right antecubital area, using aseptic technique. al4 ,using aseptic technique. done by Kelsie Espino RN Blood collected. 01:45 COVID-19/FLU A+B (Document "Date of Onset" if Symptomatic) Sent. al4 01:57 Urine Culture Sent. al4 02:05 Patient has correct armband on for positive identification. Placed in gown. Bed in low al4 position. Call light in reach. Side rails up X 1. Pulse ox on. NIBP on. 02:27 COVID-19/FLU A+B (Document "Date of Onset" if Symptomatic) Sent. al4 02:53 XRAY Chest (1 view) In Process Unspecified. EDMS 03:23 Azar Frank MD is Hospitalizing Provider. mh7 03:35 Blood Culture Adult (2) Sent. as6 06:38 No provider procedures requiring assistance completed. al4 06:39 Patient admitted, IV remains in place. al4 Administered Medications: 02:27 Not Given (Physician Discretion): LevaQUIN (levofloxacin) 500 mg 100 ml IVPB once over al4 60 mins 04:00 Drug: Azactam 1 grams Route: IVPB; Infused Over: 30 mins; Site: right antecubital; al4 04:32 Follow up: Response: No adverse reaction; IV Status: Completed infusion; IV Intake: al4 100ml Intake: 04:32 IV: 100ml; Total: 100ml. al4 Outcome: 03:24 Decision to Hospitalize by Provider. mh7 06:38 Admitted to ER Hold. Please see [facility] for further documentation. al4 06:38 Condition: stable 06:38 Instructed on the need for admit. 21:43 Patient left the ED. rian Signatures: Dispatcher [employer] EDMS Shanon Kemp RN RN Tomeka Dubois 3 Chucho Granados MD MD 7 Deana Engle 5 Napoleon Newton RN RN as6 Abhi Lebron al4 Corrections: (The following items were deleted from the chart) 02:17 01:57 Urine Culture+BA.LAB.BRZ drawn and sent. al4 EDCO 06:38 10/25 23:54 Fall Risk Fall in past 12 months (25 points). tw5 al4 10/26 06:39 06:38 Admitted to ER Hold. Please see [facility] for further documentation. al4 al4 06:40 06:38 Inserted saline lock: 20 gauge in right antecubital area, using aseptic al4 technique. ,using aseptic technique. done by Kelsie Espino RN Blood collected. al4
[2021-10-26] MEDS ORDERED: NA CHLORIDE 0.9% 100 ML ONE (03:56)
--- NOTE | 2021-10-26 04:05 | P.HP ---
Certification for Inpatient Patient admitted to: Observation With expected LOS: <2 Midnights Patient will require the following post-hospital care: None Practitioner: I am a practitioner with admitting privileges, knowledge of patient current condition, hospital course, and medical plan of care. Services: Services provided to patient in accordance with Admission requirements found in Title 42 Section 412.3 of the Code of Federal Regulations Patient History Date of Service: 10/26/21 Reason for admission: Dysuria and missed dialysis History of Present Illness: 66-year-old female with history of chronic hypotension on midodrine, ESRD after prolonged acute kidney failure since the last 3 months, chronic anticoagulation with Eliquisunclear reason for anticoagulation, typically do dialysis on TTS schedule follows with Dr. Mckeon but missed the last 2 treatments due to new onset of chest congestion and cough. Patient states she was afraid she might have Covid and did not want to go to dialysis. She states she is not vaccinated and does not want the vaccine. She denies any fever. She developed dysuria with flank pain since the last 2 days and had called her dietetics director and was asked to come to the emergency room. On arrival in the emergency room a Covid screen was negative. Chest x-ray shows mild pulmonary edema. Potassium of 5.5. Beta elevated proBNP of 1152. She is being admitted for UTI with missed dialysis. Home medications list reviewed: Yes - Past Medical/Surgical History Diabetic: No -: Chronic hypotension -: Hyperlipidemia -: Chronic anticoagulation use -: History of nephrolithiasis requiring stent placement -: Recurrent UTI -: End-stage renal disease Past Surgical History: Reviewed- Non-Contributory - Family History Family History: Reviewed- Non-Contributory - Social History Smoking Status: Never smoker Smoking therapy provided: No Alcohol use: No CD- Drugs: No Caffeine use: No Place of Residence: Home Review of Systems 10-point ROS is otherwise unremarkable Physical Examination - Physical Exam General: Alert, In no apparent distress, Oriented x3, Obese HEENT: Atraumatic, Normocephalic, PERRLA Neck: Supple, 2+ carotid pulse no bruit, JVD not distended Respiratory: Normal air movement, Diminished Cardiovascular: Normal pulses, Regular rate/rhythm, Normal S1 S2 Capillary refill: <2 Seconds Gastrointestinal: Normal bowel sounds, Soft and benign, Non-distended Musculoskeletal: No clubbing, No swelling Integumentary: No rashes, No breakdown Neurological: Normal speech, Normal strength at 5/5 x4 extr, Normal tone Urinary: Dialysis catheter (left permacath) - Studies Laboratory Data (last 24 hrs) 10/26/21 01:41: PT 14.5 H, INR 1.26 10/26/21 01:41: WBC 8.30, Hgb 7.4 L, Hct 24.1 L, Plt Count 112 L 10/26/21 01:41: Sodium 138, Potassium 5.5 H, BUN 58 H, Creatinine 6.61 H*, Glucose 112 H, Magnesium 2.5 H, Total Bilirubin 0.9, AST 24, ALT 32, Alkaline Phosphatase 220 H Assessment and Plan - Problems (Diagnosis) (1) ESRD (end stage renal disease) on dialysis Current Visit: Yes Status: Acute (2) UTI (urinary tract infection) Current Visit: Yes Status: Acute (3) Hypotension arterial Current Visit: Yes Status: Acute - Plan ESRD Missed dialysis UTI Hyperkalemia Chronic anticoagulation Chronic hypotension History of nephrolithiasiswith indwelling stent noted on CT imaging Plan Will admit patient to observation We will plan for hemodialysis in a.m. nephrology consult We will start empiric antibiotics with meropenem Follow urine culture and base antibiotics on sensitivity given patient allergy profile Continue midodrine Continue Eliquis Possible discharge in a.m. after dialysis Discharge Plan: Home - Advance Directives Does patient have a Living Will: No Does patient have a Durable POA for Healthcare: No - Code Status/Comfort Care Code Status: Full Code Physician Review: Patient Assessed, Agree with Above Assessment and Plan Time Spent Managing Pts Care (In Minutes): 65
[2021-10-26] MEDS ORDERED: HYDRALAZINE HCL 20 MG/ML VIAL IV PRN (04:08)
[2021-10-26] MEDS ORDERED: GUAIFENESIN/DM 5 ML UCUP PO PRN (04:08)
[2021-10-26] MEDS ORDERED: MORPHINE 2 MG/ML SYR IV PRN (04:08)
[2021-10-26] MEDS ORDERED: FUROSEMIDE 40 MG/4 ML VIAL IV ONE (04:08)
[2021-10-26] MEDS ORDERED: ALBUTEROL 2.5 MG/3 ML NEB SOL NEB PRN (04:10)
[2021-10-26] MEDS: Meropenem 1 GM/100 ML BAG IV SCH ×2 (04:15)
[2021-10-26] MEDS ORDERED: Meropenem 1000 MG/VIAL IV ONE (05:53)
[2021-10-26 06:08] VITALS: BMI 38.3
[2021-10-26] MEDS ORDERED: Meropenem 1 GM/100 ML BAG IV ONE (07:00)
[2021-10-26] MEDS ORDERED: FAMOTIDINE 20 MG TAB PO SCH (09:00)
[2021-10-26] MEDS ORDERED: FAMOTIDINE 20 MG TAB ONE (10:07)
[2021-10-26] MEDS ORDERED: FUROSEMIDE 40 MG/4 ML VIAL ONE (10:15)
--- NOTE | 2021-10-26 10:48 | CON ---
Date of Consultation: 10/26/2021 Reason For Consultation: Elevated BUN and creatinine, resuming hemodialysis. History Of Present Illness: This is a pleasant 66-year-old female with significant past medical hist ory of hyperlipidemia, cardiac arrhythmia on anticoagulation, nephrolithiasis with recurrent UTI stat us post stenting, end-stage renal disease secondary to toxic ATN, recently started on dialysis few mo nths ago as acute kidney injury. The patient maintained on dialysis. Apparently, the patient felt s ick with nausea and vomiting, abdominal pain, suspected herself to have COVID but did not follow inst ructions. The patient did not show up to dialysis for the last 2 sessions because she was afraid of contamination to other patients and/or picking it up from patient who is infected. The patient start ed feeling sick and for that reason reported to the hospital. In the hospital, found to be over volu me with elevation in BUN and creatinine and hyperkalemia. For that reason, we have been consulted. As I mentioned, the patient missed the last 2 sessions of dialysis. Past Medical History: Includes, 1.Nephrolithiasis with recurrent UTI, status post stenting. Recurrent treatment as outpatient for U TI. 2.Hypertension. 3.Hyperlipidemia. 4.End-stage renal disease, dialysis dependent. Past Surgical History: Include urethral stent placement. Family History: Positive for hypertension. Social History: Lives alone. Denied smoking. Denied drinking. Denied drugs abuse. Allergies: CEFEPIME, LEVAQUIN, AND PENICILLIN. Review of Systems: Head and Neck: No red eye. No ear pain. GI: Has abdominal pain. Has flank pain. : Has flank pain. Has dysuria. Equine Intern: No vaginal discharge. Respiratory: Has shortness of breath. Cardiovascular: No chest pain. Endocrine: No polydipsia. Skin: No rash. Neuro: Has neuropathy. Musculoskeletal: No joint pain. Physical Examination: Vital Signs: When I saw the patient; blood pressure 162/78, pulse of 88. Chest: Crackles bilateral. Heart: S1, S2. Systolic murmur. Abdomen: Soft, nontender. No guarding or rebound. Only minimal tenderness on the left flank. Extremities: +1 edema. Neurologic: Alert and oriented x3. Nonfocal. Laboratory Data: WBC 8.3, H and H 7.4/24.1. Sodium 138, potassium 5.5, bicarb 23, BUN 58, creatinin e 6.6, calcium 8.7. BNP 11,841, albumin 2.6, corrected calcium is 10. TSH 2.7. Current Medications: The patient is on include meropenem, hydralazine, Lasix 40, Pepcid, morphine, g uaifenesin. Assessment And Plan: 1.End-stage renal disease, over volume with hyperkalemia, missed dialysis. I am going to arrange fo r the patient for dialysis today. We will challenge the patient to establish better volume control. We will dialyze the patient on low-potassium bath and we will follow up. 2.Hypertension. We will utilize blood pressure for more ultrafiltration. We will follow up blood p ressure after dialysis. 3.Urinary tract infection, recurrent with history of urosepsis and renal stenting. We will follow u p CT result. We will obtain culture of the urine and the blood. Currently, the patient is going to be started on antibiotic. We will follow up the culture as outpatient. We will start the patient on Bactrim for the time being as the patient is allergic to penicillin and cephalosporin and quinolones . 4.Hyperkalemia. The patient is going to be dialyzed on low-potassium bath. 5.Over volume. The patient is going to be challenged. 6.Diabetes, as by primary. JOVANY/KWAN Voice ID: [id number] Report ID: [id number]
--- NOTE | 2021-10-26 11:23 | EKG ---
Test Date: 2021-10-26 Test Time: 01:41:16 Grooming Assistant: ALL MEASUREMENT RESULTS: Intervals: Rate: 81 LA: QRSD: 86 QT: 350 QTc: 406 [place]: P: LA: QRS: 125 T: -7 INTERPRETIVE STATEMENTS: Atrial fibrillation with a competing junctional pacemaker Possible Right ventricular hypertrophy Nonspecific T wave abnormality Abnormal ECG No previous ECG available for comparison Electronically Signed On 10-26-21 11:22:12 EMPLOYMENT SPECIALIST by [place]
--- NOTE | 2021-10-26 13:32 | RAD REPORT ---
EXAM DESCRIPTION: CT - Stone Protocol - 10/26/2021 7:18 am CLINICAL HISTORY: 66 years, Female, FLANK PAIN COMPARISON: None TECHNIQUE: Multiple transaxial tomograms of the abdomen and pelvis were performed from the lung base s to the symphysis pubis 3 mm slice thickness at 3 mm interval reconstruction, without administration of IV and oral contrast. Multiplanar reformats in the sagittal and coronal plane were generated and reviewed. This exam was performed according to our departmental dose-optimization protocol, which includes auto mated exposure control, adjustment of the mA and/or kV according to patient size and/or use of iterat satnam reconstruction technique. FINDINGS: The lack of IV and oral contrast limits evaluation of solid organs, subtle lesions cannot be excluded. The lung bases demonstrated presence of a central catheter within the cavoatrial junction/right atriu m. Mild cardiomegaly. Minimal dependent atelectatic changes lung bases. Trace bilateral pleural effus ions. Grossly the unopacified liver is increase in size. There is small amount of air within the left inter body biliary system with the presence of a biliary stent within the common bile duct/second portion o f the duodenum. Surgical clips within the gallbladder fossa correspond to previous cholecystectomy. The pancreas, spleen and adrenal glands demonstrate to be within normal limits, no significant focal lesions were identified. There is trace of fluid inferior subcapsular aspect of the liver. The left kidney demonstrated presence of a left internal ureteral stent and place. Several upper mid pole radiodensities correspond to most likely calculi. There is no evidence for significant hydroneph rosis. The right kidney demonstrated presence of small upper calculi within the posterior aspect. There are upper and lower pole renal cyst. Grossly the unopacified stomach, small bowel and large bowel demonstrate to be within normal limits. There is no evidence for bowel dilatation and/or free air. Mild fecal stasis. The appendix is suggest ed on axial image [id number]. The urinary bladder demonstrate to be within normal limits. The uterus is unremarkable. Surgical clip s within bilateral size of the uterus/fallopian tube areas correspond to tubal ligation. The aorta de monstrate to be within normal limits. There is no retroperitoneal lymphadenopathy. There is no ev idence for ascites. The bone windows demonstrate mild diffuse bony osteopenia. No definitive compression deformity. Schmo rl's node superior plate of L3. There is minimal haziness of the skin/subcutaneous tissue perhaps sug gesting edema. IMPRESSION: Left internal ureteral stent and place. No evidence for significant hydronephrosis. Bilateral nephrolithiasis. Right renal cysts Status post cholecystectomy with internal biliary stent in place and minimal amount of pneumobilia. Mild fecal stasis. Trace of fluid inferior subcapsular aspect of the liver. Trace bilateral pleural effusions. Mild cardiomegaly. Electronically signed by: Etienne Nelson MD 10/26/2021 1:41 AM TRANSPORTATION PLANNER Due to temporary technical issues with the PACS/Fluency reporting system, reports are being signed by the in house radiologist without review as a courtesy to ensure prompt reporting. The interpreting r adiologist is fully responsible for the content of the report.
--- NOTE | 2021-10-26 14:04 | RAD REPORT ---
EXAM DESCRIPTION: RAD - Chest Single View - 10/26/2021 2:54 am CLINICAL HISTORY: 66 years, Female, SOB COMPARISON: None FINDINGS: Single view of the chest was obtained portable. No prior films are available for compariso n. The lung volume is decreased. The heart is enlarged. Thoracic aorta is unremarkable. Left IJ batsheva maryan dialysis catheter. External EKG leads within the [id number] limits diagnosis.. Elevation right hemidiaphragm with compressive atelectatic changes/or infiltrate. Pulmonary vasculature is normal di stribution. The rest of the soft tissue and bony structures demonstrate to be unremarkable. IMPRESSION: Elevation right hemidiaphragm with compressive atelectatic changes and/or infiltrate. Cardiomegaly. No focal areas of acute airspace disease. Electronically signed by: Etienne Nelson MD 10/26/2021 3:30 AM COMMUNITY CASE MANAGER Due to temporary technical issues with the PACS/Fluency reporting system, reports are being signed by the in house radiologist without review as a courtesy to ensure prompt reporting. The interpreting r adiologist is fully responsible for the content of the report.
--- NOTE | 2021-10-26 17:55 | P.DS ---
Admission Date: 10/26/21 Discharge Date: 10/26/21 Disposition: ROUTINE DISCHARGE Discharge Condition: GOOD Reason for Admission: Dysuria and missed dialysis Consultations: Nephrology - Dr. Donald Procedures: Problem list UTI Volume overloaded secondary to missing dialysis ESRD on HD History of nephrolithiasis requiring stent placement Chronic hypotension Brief History of Present Illness: 66-year-old female with history of chronic hypotension on midodrine, ESRD after prolonged acute kidney failure since the last 3 months, chronic anticoagulation with Eliquisunclear reason for anticoagulation, typically do dialysis on TTS schedule follows with Dr. Mckeon but missed the last 2 treatments due to new onset of chest congestion and cough. Patient states she was afraid she might have Covid and did not want to go to dialysis. She states she is not vaccinated and does not want the vaccine. She denies any fever. She developed dysuria with flank pain since the last 2 days and had called her generator mechanic and was asked to come to the emergency room. On arrival in the emergency room a Covid screen was negative. Chest x-ray shows mild pulmonary edema. Potassium of 5.5. Beta elevated proBNP of 1152. She is being admitted for UTI with missed dialysis. Hospital Course: Patient underwent dialysis without complications. She is feeling better, was not septic. She is empirically treated with IV meropenem. Nephrology was consulted and in agreement that patient was stable and appropriate for discharge home. She is discharged home with single strength Bactrim for UTI. Nephrology stated they will follow up on urine culture and inform the patient if anything needs to be changed. Patient to resume dialysis as previously scheduled. Vital Signs/Physical Exam: Temp Pulse Resp BP Pulse Ox 79 107/58 L 10/26/21 04:08 10/26/21 04:08 General: Alert, In no apparent distress HEENT: Sclerae nonicteric Respiratory: Diminished, Other (Nonlabored on room air) Cardiovascular: Regular rate/rhythm, Edema (1+) Gastrointestinal: Soft and benign, Non-distended, No tenderness Musculoskeletal: No tenderness Integumentary: No rashes Neurological: Normal speech, Normal affect Laboratory Data at Discharge: WBC 8.30 K/uL (4.3-10.9) 10/26/21 01:41 Hgb 7.4 g/dL (12.0-15.0) L 10/26/21 01:41 Hct 24.1 % (36.0-45.0) L 10/26/21 01:41 Plt Count 112 K/uL (152-406) L 10/26/21 01:41 PT 14.5 SECONDS (9.5-12.5) H 10/26/21 01:41 INR 1.26 10/26/21 01:41 Sodium 138 mmol/L (136-145) 10/26/21 01:41 Potassium 5.5 mmol/L (3.5-5.1) H 10/26/21 01:41 BUN 58 mg/dL (7-18) H 10/26/21 01:41 Creatinine 6.61 mg/dL (0.55-1.3) H* 10/26/21 01:41 Glucose 112 mg/dL (74-106) H 10/26/21 01:41 Magnesium 2.5 mg/dL (1.8-2.4) H 10/26/21 01:41 Total Bilirubin 0.9 mg/dL (0.2-1.0) 10/26/21 01:41 AST 24 U/L (15-37) 10/26/21 01:41 ALT 32 U/L (12-78) 10/26/21 01:41 Alkaline Phosphatase 220 U/L (45-117) H 10/26/21 01:41 Home Medications: Sulfamethoxazole/Trimethoprim [Bactrim 400-80 mg Tablet] 1 each PO BID 5 Days #10 tablet 10/26/21 New Medications: Sulfamethoxazole/Trimethoprim [Bactrim 400-80 mg Tablet] 1 each PO BID 5 Days #10 tablet Physician Discharge Instructions: You were volume overloaded due to missing dialysis. Improved with dialysis. Please continue as normally scheduled. You were also found to have a UTI. This was discussed with nephrology. You received a dose of IV meropenem in the hospital and are prescribed bactrim on discharge Your generator mechanic will follow up on the urine culture and call you if the antibiotic needs to be changed. Diet: Renal Activity: Ad mari Followup: Antonella Rodriguez MD [Primary Care Provider] - Time spent managing pt's care (in minutes): 45
[2021-10-26 21:59] VITALS: TEMP 97.6
[2021-10-26 22:07] VITALS: BP 104/73; O2SAT 99
[2021-10-27] MEDS ORDERED: Meropenem 1 GM/100 ML BAG IV SCH (09:00)
== END 2021-10-26 18:31 | disposition home or self-care (01) ==
LOC: ER 23:04 → ERHOLD 10-26 04:40
PROVIDERS: ADMIT Internal Medicine; ATTEND Hospitalist
DX: N39.0 Urinary tract infection, site not specified (principal); E87.70 Fluid overload, unspecified; Z91.15 Patient's noncompliance with renal dialysis; N18.6 End stage renal disease; Z99.2 Dependence on renal dialysis; I95.89 Other hypotension; E87.5 Hyperkalemia; E78.5 Hyperlipidemia, unspecified; R05.9 Cough, unspecified; R09.89 Other specified symptoms and signs involving the circulatory and respiratory systems; Z87.442 Personal history of urinary calculi; Z79.01 Long term (current) use of anticoagulants; Z88.0 Allergy status to penicillin; Z88.8 Allergy status to other drugs, medicaments and biological substances; Z20.822 Contact with and (suspected) exposure to COVID-19
CPT/HCPCS: 96365; 93005; 87040 ×4; 87088; 85025; 87086; 80048; 36415; 83735; 85610; 82947 ×2; 80076; 84443; 87077; 87186; 84484; 83880; 0240U; 76377; 74176; 71045; 90935; 99285; J1940; J2185; J1644; G0378 ×2; 81003; 81015

== ENCOUNTER 2021-11-02 17:04 | Emergency (ER) | payer OTHER, BC ==
--- OUTSIDE RECORDS SUMMARY | 2021-11-02 17:11 | XMS REPORT | Continuity of Care Document ---
:1955 Author Organization [facility] t Address [address] [place] [address] Care Team Providers Name Role Phone AHMED [...] l NATALYA 00:00: Denis 00 Active 02/14/2021 [facility] COLON Diagnosis Active 2016-11-17 Mem oria CANCER 11-14 05:49:00 l SCREENING- COLON 00:00: Karen nn Z12.11 CANCER 00 SCREENING- Z12.11 Active 11/14/2016 Hart R92.1 - Diagnosis Active 2016-04-16 Wy moria MAMMOGRAPH 01-31 15:55:00 l IC R92.1 - 00:01: [place] CALCIFCN MAMMOGRAPH 00 FOUND ON IC CALCIFCN FOUND ON Active 02/01/2016 OPID Hart Z12.31 - Diagnosis Active 2015-11-30 M emoria ENCNTR - 07:08:00 l SCREEN Z12.31 - 00:01: Vicente davis MAMMOGRAM ENCNTR 00 FOR MA SCREEN MAMMOGRAM FOR MA Active 11/12/2015 OPID Hart RT WRIST Diagnosis Active 2016-12-28 M emoria DISTAL 1- 02:03:00 l RADIUS RT WRIST 09:00: Vicente davis CLSD FX DISTAL 00 RADIUS CLSD FX Active 10/22/2015 [facility] Abnormal Problem Active 2021-09-15 Mem oria glucose 7-02 22:17:41 l level Abnormal 00:00: Vicente davis (finding) glucose 00 level (finding) Active 04/22/2015 Problem 09/15/2021 Data migrated from [employer] on 04/28/15. [facility], ANTHONY Soto, OPID Hart, [facility], Hart Lymphedema Problem Active 2019-11-17 M emoria (disorder) 2- 00:38:51 l 00:00: Denis Lymphedema 00 (disorder) Active 11/25/2013 Problem 11/17/2019 Data migrated from [employer] on 03/20/15. [facility], ANTHONY Soto, OPID Hart, [facility], [place] Obstructiv Problem Active 2021-09-15 M emoria e sleep 2-04 22:17:41 l apnea 00:00: [place] syndrome Obstructiv 00 (disorder) e sleep apnea syndrome (disorder) Active 11/25/2013 Problem 09/15/2021 Data migrated from [employer] on 03/20/15. [facility], ANTHONY Soto, OPID Hart, [facility], [facility] Hypothyroi Problem Active 2019-08-09 M emoria dism 02-12 21:25:36 l (disorder) 00:00: Vicente n Hypothyroi 00 dism (disorder) Active 02/12/2013 Problem 08/09/2019 Data migrated from [employer] on 03/20/15. [facility], OPID Brittany, OPID Hart, [facility], [place] Depressive Problem Active 2021-09-15 M emoria disorder 4-24 22:17:41 l (disorder) 00:00: Vicente n Depressive 00 disorder (disorder) Active 02/12/2013 Problem 09/15/2021 Data migrated from [employer] on 03/20/15. [facility], OPID Brittany, OPID Hart, [facility], [facility] Obesity Problem Active 2016-05-15 Turner arnoldo (disorder) 8-20 00:23:22 l Obesity 00:00: Denis (disorder) 00 Active 06/10/2012 Problem 05/15/2016 Data migrated from [employer] on 03/20/15. OPID Brittany, OPID Hart, [facility] Cobalamin Problem Active 2021-09-15 Me moria deficiency 7-11 22:17:41 l (disorder) 00:00: Vicente n Cobalamin 00 deficiency (disorder) Active 05/01/2012 Problem 09/15/2021 Data migrated from [employer] on 03/20/15. [facility], OPID Brittany, OPID [facility], [facility], [place] Hypertensi Problem Active 2016-05-15 M emoria ve episode 7-10 00:23:22 l (disorder) 00:00: Vicente n Hypertensi 00 ve episode (disorder) Active 04/30/2012 Problem 05/15/2016 Data migrated from [employer] on 03/20/15. MH OPID Brittany, OPID Hart, [facility] Pain in Problem 2016-01-01 Turner arnoldo wrist 05:02:18 l (finding) Pain in Herm connie wrist (finding) Problem 01/01/2016 [facility] Calcificat Problem Resolve 2021-09-15 Memoria ion of d 22:17:41 l breast Denis (finding) Calcificat ion of breast (finding) Resolved Problem 09/15/2021 [facility], OPID Brittany, OPID [facility], [facility], [facility] Dysuria Problem Resolve 2021-09-15 Mem oria (finding) d 22:17:41 l Dysuria [place] (finding) Resolved Problem 09/15/2021 Medical [facility], OPID Hart, [facility] Acute Problem Active 2020-02-08 Memor ia urinary 22:36:35 l tract Acute [place] infection urinary (disorder) tract infection (disorder) Active Problem 02/08/2020 Medical Group Chronic Problem Active 2020-02-08 Turner arnoldo renal 22:36:35 l impairment Chronic [place] (disorder) renal impairment (disorder) Active Problem 02/08/2020 [facility], OPIEverette Soto, OPID Hart, [facility], [facility] Diabetes Problem Active 2020-06-24 Mem oria mellitus 23:27:54 l (disorder) Diabetes He rmann mellitus (disorder) Active Problem 06/24/2020 [facility], OPID [facility] Urinalysis Problem Active 2021-09-15 M emoria = abnormal 22:17:41 l (finding) [place] Urinalysis = abnormal (finding) Active Problem 09/15/2021 [facility], OPID Hart, [facility] Atrial Problem Active 2021-09-15 Memor ia fibrillati 22:17:41 l on Atrial [place] (disorder) fibrillati on (disorder) Active Problem 09/15/2021 [facility], OPID Hart, [facility] Benign Problem Active 2021-09-15 Memor ia essential 22:17:41 l hypertensi Benign Herm connie on essential (disorder) hypertensi on (disorder) Active Problem 09/15/2021 [facility], OPID Brittany, OPID [facility], [facility], [facility] Cardiorena Problem Active 2021-09-15 M emoria l syndrome 22:17:41 l (disorder) Vicente n Cardiorena l syndrome (disorder) Active Problem 09/15/2021 [facility], OPID Hart, [facility] Chronic Problem Active 2021-09-15 Turner arnoldo kidney 22:17:41 l disease Chronic Vicente n (disorder) kidney disease (disorder) Active Problem 09/15/2021 [facility], OPID Hart, Hart Chronic Problem Active 2021-09-15 Turner arnoldo kidney 22:17:41 l disease Chronic Vicente n stage 3 kidney (disorder) disease stage 3 (disorder) Active Problem 09/15/2021 [facility], OPID Hart, Hart Chronic Problem Active 2021-09-15 Turner arnoldo pain 22:17:41 l (finding) Chronic Herm connie pain (finding) Active Problem 09/15/2021 [facility], OPID Hart, [facility] Dependence Problem Active 2021-09-15 M emoria on 22:17:41 l supplement Vicente n al oxygen Dependence (finding) on supplement al oxygen (finding) Active Problem 09/15/2021 [facility], [facility] Edema of Problem Active 2021-09-15 Mem oria lower 22:17:41 l extremity Edema of [place] (finding) lower extremity (finding) Active Problem 09/15/2021 [facility], OPID Hart, [facility] Hyperlipid Problem Active 2021-09-15 M emoria emia 22:17:41 l (disorder) Vicente n Hyperlipid emia (disorder) Active Problem 09/15/2021 Data migrated from [facility] on 03/20/15. Medical Group, ANTHONY Soto, OPID Hart,[facility], [place] Hyperparat Problem Active 2021-09-15 M emoria hyroidism 22:17:41 l (disorder) Vicente n Hyperparat hyroidism (disorder) Active Problem 09/15/2021 Medical Group, OPID Hart, [facility] Hypertensi Problem Active 2021-09-15 M emoria ve 22:17:41 l disorder, Denis systemic Hypertensi arterial ve (disorder) disorder, systemic arterial (disorder) Active Problem 09/15/2021 Medical Group,[facility], OPID Hart, Hart Hypertensi Problem Active 2021-09-15 M emoria ve renal 22:17:41 l disease [place] (disorder) Hypertensi ve renal disease (disorder) Active Problem 09/15/2021 [facility], OPID Hart, Hart Hyperurice Problem Active 2021-09-15 M emoria bryant 22:17:41 l (disorder) Vicente n Hyperurice bryant (disorder) Active Problem 09/15/2021 Data migrated from [facility] on 03/20/15. Medical Group, OPID Brittany, OPID [facility], [facility], [facility] Lymphedema Problem Active 2021-09-15 M emoria of lower 22:17:41 l extremity [place] (disorder) Lymphedema of lower extremity (disorder) Active Problem 09/15/2021 [facility], OPID Hart, [facility] Malignant Problem Active 2021-09-15 Me moria neoplasm 22:17:41 l of skin of Vicente n upper limb Malignant (disorder) neoplasm of skin of upper limb (disorder) Active Problem 09/15/2021 [facility], OP[facility] Hart, [facility] Morbid Problem Active 2021-09-15 Memor ia obesity 22:17:41 l (disorder) Morbid Herm connie obesity (disorder) Active Problem 09/15/2021 [facility] Group, OPID Brittany, OPID [facility], [facility], [facility] Post-disch Problem Active 2021-09-15 M emoria arge 22:17:41 l follow-up [place] (finding) Post-disch arge follow-up (finding) Active Problem 09/15/2021 [facility], [facility] Prerenal Problem Active 2021-09-15 Mem oria azotemia 22:17:41 l (disorder) Prerenal He rmann azotemia (disorder) Active Problem 09/15/2021 Medical Group, OPID Hart, [facility] Proteinuri Problem Active 2021-09-15 M emoria a 22:17:41 l (finding) [place] Proteinuri a (finding) Active Problem 09/15/2021 [facility], OPID Hart, [facility] Stasis Problem Active 2021-09-15 Memor ia ulcer 22:17:41 l (disorder) Stasis Herm connie ulcer (disorder) Active Problem 09/15/2021 [facility] Group, OPID Hart, [facility] Swelling - Problem Active 2021-09-15 M emoria edema - 22:17:41 l symptom Swelling Karen nn (finding) - edema - symptom (finding) Active Problem 09/15/2021 [facility] Group, OPID Hart, [facility] Swollen Problem Active 2021-09-15 Turner arnoldo ankle 22:17:41 l (finding) Swollen Herm connie ankle (finding) Active Problem 09/15/2021 [facility], OPID Hart, [facility] Urinary Problem Resolve 2021-09-15 Mem oria tract d 22:17:41 l infectious Urinary [place] disease tract (disorder) infectious disease (disorder) Resolved Problem 09/15/2021 [facility] Group, OPID Hart, Hart Venous Problem Active 2021-09-15 Memor ia ulcer of 22:17:41 l leg Venous [place] (disorder) ulcer of leg (disorder) Active Problem 09/15/2021 [facility] Group, OPID Hart, Hart Weight Problem Active 2021-09-15 Memor ia gain 22:17:41 l finding Weight [place] (finding) gain finding (finding) Active Problem 09/15/2021 [facility], OPID Hart, Hart Acute Problem Active 2016-05-15 Memor ia renal 00:23:22 l failure Acute Denis syndrome renal (disorder) failure syndrome (disorder) Active Problem 05/15/2016 Data migrated from [facility] on 03/20/15. OPID Brittany, OPID Hart,[facility] Kidney Problem Active 2016-11-20 Memor ia disease 03:07:28 l (disorder) Kidney Herm connie disease (disorder) Active Problem 11/20/2016 Hart Migraine Problem Active 2016-11-20 Mem oria (disorder) 03:07:28 l Migraine Vicente n (disorder) Active Problem 11/20/2016 [facility], [facility] RIGHT Diagnosis Active 2016-03-09 Mem oria WRIST 15:06:00 l DISTAL RIGHT Denis RADIUS WRIST CLSD FX DISTAL RADIUS CLSD FX Active [facility] DISTAL Diagnosis Active 2016-04-21 Mem oria RADIUS 09:46:00 l CLSD FX DISTAL [place] RADIUS CLSD FX Active [facility] Cholestero Problem 2016-01-01 M emoria l 05:02:18 l (substance Vicente n ) Cholestero l (substance ) Problem 01/01/2016 [facility] Sleep Problem 2016-01-01 Memor ia apnea 05:02:18 l (finding) Sleep Vicente n apnea (finding) Problem 01/01/2016 2does not use cpap [facility] Dependence Problem 2020-102021-09-12 2021-09-12 Memoria on 11-09 01:29:16 01:29:16 l supplement 21:17: Vicente n al oxygen Dependence 00 on supplement al oxygen 09/09/2021 09/12/2021 Medical Group Other Problem 2020-102021-09-12 2021-09-12 M emoria hyperlipid 11-09 01:29:16 01:29:16 l emia Other 21:16: [place] hyperlipid 00 emia 09/09/2021 09/12/2021 Medical Group Unsteadine Problem 2020-102021-09-12 2021-09-12 Memoria ss on feet 11-09 01:29:16 01:29:16 l 21:13: [place] Unsteadine 00 ss on feet 09/09/2021 09/12/2021 [...] l (current) Other 22:29: Vicente n drug jail 00 therapy (current) drug therapy 09/06/2021 09/08/2021 [facility] Group Other Problem 2020-102021-09-08 2021-09-08 Cecelia morales abnormal 11-06 22:39:43 22:39:43 l glucose Other 22:23: [place] abnormal 00 glucose 09/06/2021 09/08/2021 [facility] Group Acute Problem Resolve 2012-2016-05-15 2016-05-15 Memoria otitis d -24 00:23:22 00:23:22 l media Acute 00:00: Denis (disorder) otitis 00 media (disorder) Resolved 02/12/2013 Problem 05/15/2016 Data migrated from [facility] on 05/08/15. ANTHONY Soto, OPID Hart,[facility] Allergies, Adverse Reactions, Alerts [...] 2</sup> Denis codeine codeine Active Memoria l Denis penicill penicill Active Memori a ins ins l [place] Social History Social Habit Start Date Stop Date Quantity Comments Source Social History 2019-08-15 2019-08-15 Aylin retana 14:54:48 14:54:48 Smoking Status Start Date Stop Date Source Social History [facility] Denis Medications Ordered Filled Start Stop Current Ordering Indication Dosage Frequency Signature Comments Components Source Medication Medication Date Date Medication? Clinician (SIG) Name Name Mupirocin 2020-10 Yes 1 appl, Memor ia 0.02 MG/MG 1-22 TOP, TID, l Topical 23:21: X 5 day, # Herm connie Ointment 00 22 gm, 0 Refill(s), Pharmacy: [facility] #[id number], 165.1, cm, 09/09/21 14:08:00 [place], Height, 136.42, kg, 09/09/21 14:08:00 [place], Weight bumetanide 2020-10 Yes 2 mg = [...] once a l tablet 13:55: day, 0 Denis 00 Refill(s) torsemide Yes 1 tablet, Mem oria 20 mg oral 3-30 twice a l tablet 13:55: day, 0 [place] 00 Refill(s) potassium Yes 1 tablet, Mem oria chloride 20 3-30 once a l mEq oral 13:54: day, 0 Denis tablet, 00 Refill(s) extended release (KCL) allopurinol Yes 1/2 Memori a 300 mg oral 3-30 tablet, l tablet 13:53: once a [place] 00 day, 0 Refill(s) carvedilol Yes 1 tablet, Me moria 3.125 mg 3-30 twice a l oral tablet 13:53: day, 0 Herm connie 00 Refill(s) Digoxin Yes 1 tablet, Memor ia 0.125 MG 3-30 once a l Oral Tablet 13:53: day, 0 Herm connie 00 Refill(s) DULoxetine Yes 1 capsule, M emoria 60 mg oral 3-30 once a l delayed 13:53: day, 0 Denis release 00 Refill(s) capsule apixaban 5 Yes 1 tablet, Me moria MG Oral 3-30 twice a l Tablet 13:53: day, 0 Denis [Eliquis] 00 Refill(s) gabapentin Yes 1 capsule, M emoria 300 MG Oral 3-30 twice a l Capsule 13:53: day, 0 Denis 00 Refill(s) metoprolol Yes 1 tablet, Me moria tartrate 50 3-30 Twice a l mg oral 13:53: day, 0 Denis tablet 00 Refill(s) midodrine 5 Yes 1 tablet, M emoria mg oral 3-30 twice a l tablet 13:53: day, 0 [place] 00 Refill(s) DULoxetine 2019-10 Yes 60 mg [...] DAILY, # 66 gm, 1 Refill(s), Pharmacy: [facility] #[id number], 170.18, cm, 12/16/19 14:42:00 [place]OW [place], Height, 164.318, kg, 12/16/19 14:42:00 [place], Weight Nitrofurant Yes 100 mg = 1 Memoria oin 100 MG 8-09 cap, PO, l Oral 17:57: BID, X 10 Denis Capsule 00 day, # 20 [Macrobid] cap, 0 Refill(s), Pharmacy: [facility] #[id number], 170.18, cm, 12/16/19 14:42:00 W[place]OW T[place], Height, 164.318, kg, 12/16/19 14:42:00 [place]OW [place], Weight lisinopril 2020-0 Yes 2.5 mg = 1 M emoria 2.5 mg oral 6-04 tab, PO, l tablet 23:26: Daily, # Denis 00 30 tab, 2 Refill(s), called to pharmacy calcitriol 2020-0 Yes = 1 cap, Mem oria 0.25 mcg 5-20 PO, Daily, l oral 12:18: # 90 cap, [place] capsule 00 1 Refill(s), [id number] calcitriol 2020-0 Yes = 1 cap, Mem oria 0.25 mcg 4-16 PO, Daily, l oral 16:37: # 90 [place] capsule 47 unknown unit, [id number] Furosemide 2019-0 Yes = 1 tab, Mem oria 40 MG Oral 4-13 PO, Every l Tablet 20:06: Other Day, Karen nn 19 # 45 tab, [id number] prednisolon 2020-0 Yes 1 drop in M emoria e acetate 4-10 each eye, l 10 MG/ML 20:53: once Denis Ophthalmic 00 daily, 0 Suspension Refill(s) bromfenac 2019-0 Yes 1 drop in Mem oria 0.7 MG/ML 4-10 right eye, l Ophthalmic 20:53: once [place] Solution 00 daily, 0 [Prolensa] Refill(s) Furosemide 2019-0 Yes = 1 tab, Mem oria 40 MG Oral 1-23 PO, Every l Tablet 15:13: Other Day, Karen nn 34 # 45 tab, [id number] Mupirocin 2018-10 Yes See Memoria 0.02 MG/MG 2-27 Instructio l Topical 19:11: ns, # 66 Vicente n Ointment 15 gm, APPLY EXTERNALLY TO THE AFFECTED AREA TWICE DAILY, Pharmacy: [facility] #[id number] Nitrofurant 2018-10 Yes 100 mg = 1 Memoria oin 100 MG 2-13 cap, PO, l Oral 01:44: BID, X 5 Denis Capsule 00 day, # 10 [[place] cap, 0 n] Refill(s), [id number] apixaban 5 2018-10 Yes 5 mg, PO, [...] ermann Bitartrate 00 5 MG Oral Tablet [[place] 5/325] calcitriol 2018-10 Yes = 1 cap, Mem oria 0.25 mcg 0-11 PO, Daily, l oral 21:10: # 90 [place] capsule 30 unknown unit, Pharmacy: [facility] #[id number] gabapentin Yes 300 mg = 1 M emoria 300 MG Oral 9-27 cap, PO, l Capsule 20:54: BID, # 180 Herm connie 00 cap, 3 Refill(s), called to pharmacy allopurinol Yes = 1 tab, Me moria 300 mg oral 8-17 PO, Daily, l tablet 02:39: # 90 tab, Vicente n 31 Pharmacy: [facility] #[id number] QUEtiapine Yes 50 mg = 1 Me [...] l oral tablet 15:07: ns, TAKE 1 [place] 35 TABLET BY MOUTH EVERY NIGHT AT BEDTIME, # 90 tab, 1 Refill(s), Pharmacy: [facility] [place] [address] amLODIPine Yes See Memoria 5 mg oral 3-14 Instructio l tablet 15:07: ns, TAKE 1 Karen nn 33 TABLET BY MOUTH EVERY DAY, # 90 tab, 1 Refill(s), Pharmacy: [facility] [place] [address] lisinopril Yes See Memoria 5 mg oral 8-21 Instructio l tablet 19:00: ns, TAKE 1 Karen nn 30 TABLET BY MOUTH DAILY, # 90 tab, 1 Refill(s), Pharmacy: [facility] [place] [address] atorvastati Yes See Memori a n 40 mg 8-21 Instructio l oral tablet 18:50: ns, TAKE 1 Denis 45 TABLET BY MOUTH EVERY NIGHT AT BEDTIME, # 30 tab, 5 Refill(s), Pharmacy: [facility] [place] [address] amLODIPine Yes See Memoria 5 mg oral 8-21 Instructio l tablet 18:50: ns, TAKE 1 Karen nn 41 TABLET BY MOUTH EVERY DAY, # 30 tab, 5 Refill(s), Pharmacy: [facility] [place] [address] lisinopril No See Memoria 5 mg oral 7-31 Instructio l tablet 15:28: ns, # 90 Denis 34 tab, TAKE 1 TABLET BY MOUTH DAILY, Pharmacy: [facility] [place] [address] allopurinol No 300 mg = 1 Memoria 300 mg oral 5-10 tab, PO, l tablet 13:59: Daily, # [place] 00 90 tab, 1 Refill(s), Pharmacy: [facility] [place] [address] lisinopril No See Memoria 5 mg oral 5-01 Instructio l tablet 12:38: ns, # 90 [place] 18 tab, TAKE 1 TABLET BY MOUTH DAILY, Pharmacy: [facility] [place] [address] ALLOPURINOL Yes See Memori a 300MG 5-01 Instructio l TABLETS 12:38: ns, # 90 Vicente n 18 tab, TAKE 1 TABLET BY MOUTH DAILY, Pharmacy: [facility] [place] [address] calcitriol 2018-0 Yes 0.25 Memoria 0.25 mcg 3-28 microgram l oral 13:49: = 1 cap, [place] capsule 00 PO, Daily, # 90 cap, 3 Refill(s), Pharmacy: [facility] Mupirocin Yes 1 appl, Memor ia 0.02 MG/MG 3-21 TOP, BID, l Topical 15:37: 30 grams Vicente n Ointment 21 3each, # 3 ea, 1 Refill(s), Pharmacy: [facility] atorvastati Yes See Memori a n 40 mg 3-21 Instructio l oral tablet 15:36: ns, TAKE 1 [place] 22 TABLET BY MOUTH EVERY NIGHT AT BEDTIME, # 30 tab, 5 Refill(s), [facility] amLODIPine Yes See Memoria 5 mg oral 3-21 Instructio l tablet 15:36: ns, TAKE 1 Karen nn 18 TABLET BY MOUTH EVERY DAY, # 30 tab, 5 Refill(s), Pharmacy: [facility] aspirin 81 Yes 81 mg = 1 Me moria mg tablet, 1-24 tab, PO, l enteric 16:34: Daily, # Vicente n coated 00 90 tab, 3 Refill(s) Xopenex No Kyle K 0.63 mg = Mem oria 0.63 mg/3 3-11 Silvestre 3 mL, l mL 01:00: Soln, NEB, Denis inhalation 00 Once, solution first dose 12/30/15 19:00:00 W[place]OW [place], stop date 12/30/15 19:00:00 [place] Misc No Perico 300 mL, Memoria Medication 3-11 Wheat Soln-IV, l 00:03: IV, Once, Denis 00 first dose 12/30/15 18:03:00 [place]OW [place], stop date 12/30/15 18:03:00 [place] promethazin No Kyle K 12.5 mg = Memoria e 3-11 Silvestre 0.5 mL, l 00:02: Injection, [place] 00 IM, Once PRN for severe nausea, first dose 12/30/15 18:02:00 [place]OW [place] albuterol No Kyle K 2.5 mg = 3 Memoria 2.5 mg/3 mL 3-11 Silvestre mL, Soln, l (0.083%) 00:02: NEB, Once Herm connie inhalation 00 PRN for solution wheezing, first dose 12/30/15 18:02:00 [place]OW [place] Demerol HCl No Kyle K 12.5 mg = Memoria 3-11 Silvestre 0.25 mL, l 00:02: Injection, [place] 00 IV Push, Once PRN for shivers, first dose 12/30/15 18:02:00 [place] ondansetron No Kyle K 4 mg = 2 Memoria 3-11 Silvestre mL, l 00:02: Injection, [place] 00 IV Push, q15min PRN for nausea/vom iting, order duration: 2 doses, first dose 12/30/15 18:02:00 WINDOW TINTER, stop date Limited # of times Dilaudid No Kyle K 0.5 mg = Mem oria 3-11 Silvestre 0.25 mL, l 00:02: Injection, Denis 00 IV Push, q10min PRN for pain severe (7-10), first dose 12/30/15 18:02:00 [place] diphenhydrA No Kyle K 25 mg = M emoria MINE 3-11 Silvestre 0.5 mL, l 00:02: Injection, [place] 00 IV Push, Once PRN for itching, first dose 12/30/15 18:02:00 W[place]OW T[place] LR 1,000 mL No Kyle K 1,000 mL, Memoria 3-11 Silvestre IV, 75 l 00:02: mL/hr, [place] start date 12/30/15 18:02:00 [place]OW [place] Saline Lock No Kyle K 10 mL, Me moria Flush 3-11 Silvestre Soln, IV l 00:02: Push, As [place] 00 Indicated PRN for flush, first dose 12/30/15 18:02:00 [place]OW [place] Bupivacaine No Kyle K 300 mL, M emoria 0.25% 300 3-11 Silvestre Nerve l mL pump 300 00:02: Block, 5 He rmann mL 00 mL/hr, start date 12/30/15 18:02:00 W[place]OW [place] Misc No Perico 1,000 mL, Memori a Medication 3-10 Wheat Soln-IV, l 23:42: IV, Once, [place] 00 first dose 12/30/15 17:42:00 WINDOW TINTER, stop date 12/30/15 17:42:00 [place] fentaNYL No Perico 25 mcg = Mem oria 3-10 Wheat 0.5 mL, l 23:20: Injection, Denis 00 IV, Once, first dose 12/30/15 17:20:00 WINDOW TINTER, stop date 12/30/15 17:20:00 [place]OW [place] ondansetron No Perico 4 mg = 2 Memoria 3-10 Wheat mL, l 23:03: Injection, Denis 00 IV, Once, first dose 12/30/15 17:03:00 WINDOW T[place], stop date 12/30/15 17:03:00 [place] fentaNYL No Perico 25 mcg = Mem oria 3-10 Wheat 0.5 mL, l 23:00: Injection, [place] 00 IV, Once, first dose 12/30/15 17:00:00 WINDOW TINTER, stop date 12/30/15 17:00:00 [place] fentaNYL No Perico 25 mcg = Mem oria 3-10 Wheat 0.5 mL, l 22:48: Injection, Denis 00 IV, Once, first dose 12/30/15 16:48:00 WINDOW TINTER, stop date 12/30/15 16:48:00 [place] fentaNYL No Perico 25 mcg = Mem oria 3-10 Wheat 0.5 mL, l 22:37: Injection, Denis 00 IV, Once, first dose 12/30/15 16:37:00 WINDOW TINTER, stop date 12/30/15 16:37:00 [place] dexamethaso No Perico 8 mg = 2 Memoria ne 3-10 Wheat mL, l 22:23: Injection, [place] 00 IV, Once, first dose 12/30/15 16:23:00 WINDOW TINTER, stop date 12/30/15 16:23:00 [place]OW [place] Misc No Perico 1,000 mL, Memori a Medication 3-10 Wheat Soln-IV, l 22:21: IV, Once, Denis 00 first dose 12/30/15 16:21:00 WINDOW TINTER, stop date 12/30/15 16:21:00 [place]OW [place] clindamycin Yes Perico 928.125 M emoria 3-10 Wheat mg, l 22:18: Soln-IV, [place] 00 IV, Once, first dose 12/30/15 16:18:00 W[place]OW TINTER, stop date 12/30/15 16:18:00 [place] fentaNYL No Perico 25 mcg = Mem oria 3-10 Wheat 0.5 mL, l 22:05: Injection, Denis 00 IV, Once, first dose 12/30/15 16:05:00 WINDOW TINTER, stop date 12/30/15 16:05:00 [place]OW [place] midazolam No Perico 0.5 mg = Me moria 3-10 Wheat 0.5 mL, l 22:05: Injection, [place] 00 IV, Once, first dose 12/30/15 16:05:00 WINDOW TINTER, stop date 12/30/15 16:05:00 [place] lidocaine No Perico 3 mL, Memor ia 3-10 Wheat Injection, l 21:58: IV, Once, Denis 00 first dose 12/30/15 15:58:00 WINDOW TINTER, stop date 12/30/15 15:58:00 [place]OW [place] propofol No Perico 120 mg = Mem oria 3-10 Wheat 12 mL, l 21:58: Emulsion, Denis 00 IV, Once, first dose 12/30/15 15:58:00 WINDOW TINTER, stop date 12/30/15 15:58:00 WINDOW TINTER midazolam No Perico 0.5 mg = Me moria 3-10 Wheat 0.5 mL, l 21:50: Injection, [place] 00 IV, Once, first dose 12/30/15 15:50:00 WINDOW TINTER, stop date 12/30/15 15:50:00 WINDOW TINTER fentaNYL No Perico 25 mcg = Mem oria 3-10 Wheat 0.5 mL, l 21:50: Injection, Denis 00 IV, Once, first dose 12/30/15 15:50:00 WINDOW TINTER, stop date 12/30/15 15:50:00 WINDOW TINTER midazolam No Perico 0.5 mg = Me moria 3-10 Wheat 0.5 mL, l 21:10: Injection, [place] 00 IV, Once, first dose 12/30/15 15:10:00 WINDOW TINTER, stop date 12/30/15 15:10:00 WINDOW TINTER fentaNYL No Perico 25 mcg = Mem oria 3-10 Wheat 0.5 mL, l 21:10: Injection, [place] 00 IV, Once, first dose 12/30/15 15:10:00 WINDOW TINTER, stop date 12/30/15 15:10:00 WINDOW TINTER fentaNYL No Perico 25 mcg = Mem oria 3-10 Wheat 0.5 mL, l 21:05: Injection, [place] 00 IV, Once, first dose 12/30/15 15:05:00 WINDOW TINTER, stop date 12/30/15 15:05:00 WINDOW TINTER midazolam No Perico 0.5 mg = Me moria 3-10 Wheat 0.5 mL, l 21:05: Injection, Denis 00 IV, Once, first dose 12/30/15 15:05:00 WINDOW TINTER, stop date 12/30/15 15:05:00 WINDOW TINTER clindamycin No Jose Francisco 900 mg, IV Memoria 3-10 Johnson Piggyback, l 20:00: Once, Denis 00 infuse over 30 minutes, first dose 12/30/15 14:00:00 WINDOW TINTER, stop date 12/30/15 14:00:00 WINDOW TINTER, Prophylaxi s LR 1,000 mL No Kyle K 1,000 mL, Memoria 3-10 Silvestre IV, 30 l 19:27: mL/hr, [place] 00 start date 12/30/15 13:27:00 WINDOW TINTER Lidocaine No Kyle K 0.2 mL, Mem oria 2% 0.2 mL 3-10 Silvestre Injection, l IV Start 19:27: Subcutaneo [facility] [[facility]] 00 us, Once PRN for other (see comment), first dose 12/30/15 13:27:00 WINDOW TINTER Seroquel Yes 100 mg, Memori a 3-09 Oral, l 14:40: Daily, 0 [place] 00 Refill(s), migraines acetaminoph Yes 1 tabs, Mem oria en-HYDROcod 3-09 Oral, l one 325 14:40: q6hr, 0 [place] mg-5 mg 00 Refill(s), oral tablet pain [...] Bi-Flex 3- Daily, 0 l 14:40: Refill(s), [place] 00 supplement Nature's Yes 1,000 mg = Mem oria Bounty Red 12-28 2 caps, l Krill Oil 14:40: Oral, BID, He rmann 500 mg oral 00 0 capsule Refill(s), supplement aspirin 81 Yes 81 mg = 1 Me moria mg oral 12-28 tabs, l tablet 14:40: Oral, [place] 00 Daily, 0 Refill(s), supplement Axert 12.5 Yes 12.5 mg = Me moria mg oral 12-28 1 tabs, l tablet 14:40: Oral, [place] 00 Once, PRN for migraine headache, may repeat dose once in 2 hours, # 6 tabs, 0 Refill(s), migrainesm ay repeat dose once in 2 hours Wellbutrin Yes 300 mg, Turner arnoldo XL 12-28 Oral, l 14:40: q24hr, 0 [place] 00 Refill(s), migraines Immunizations Ordered Immunization Filled Immunization Date Status Commen ts Source Name Name influenza 2019-08-13 Completed [facility] vaccine-unspecified< 00:00:00 Herm connie sup>1</sup> pneumococcal 2019-05-14 Completed [facility] 23-valent 00:00:00 Denis vaccine<sup>3</sup> Hx influenza 2011-08-15 Completed [facility] vaccine-unspecified< 14:42:42 Herm connie sup>1</sup> Hx influenza 2011-08-15 Completed [facility] vaccine-unspecified< 14:42:42 Herm connie sup>2</sup> Vital Signs Vital Name Observation Time Observation Value Comments Source Heart Rate 2021-09-09 20:12:00 [facility] Heart Rate 2021-09-09 20:08:00 [facility] [place] Systolic (mm Hg) 2021-09-09 20:08:00 Turner rial Denis Diastolic (mm Hg) 2021-09-09 20:08:00 Mem o[facility] [place] Height 2021-09-09 20:08:00 165.1 cm [facility] Denis Weight 2021-09-09 20:08:00 [facility] [place] BMI Calculated 2021-09-09 20:08:00 Memori al Denis Systolic (mm Hg) 2020-09-15 15:59:00 Turner rial Denis Diastolic (mm Hg) 2020-09-15 15:59:00 [facility] [place] Heart Rate 2020-09-15 15:59:00 [facility] Denis Height 2020-09-15 15:59:00 165.1 cm [facility] Denis Weight 2020-09-15 15:59:00 [facility] Denis BMI Calculated 2020-09-15 15:59:00 Memori al Denis Systolic (mm Hg) 2019-12-16 20:42:00 Turner rial [place] Diastolic (mm Hg) 2019-12-16 20:42:00 Mem orial Denis Heart Rate 2019-12-16 20:42:00 [facility] [place] Temperature Oral (F) 2019-12-16 20:42:00 98.2 F [facility] Denis Height 2019-12-16 20:42:00 170.18 cm [facility] [place] Weight 2019-12-16 20:42:00 [facility] [place] BMI Calculated 2019-12-16 20:42:00 [facility] [place] Systolic (mm Hg) 2019-10-02 21:53:00 Turner rial [place] Diastolic (mm Hg) 2019-10-02 21:53:00 Mem orial Denis Heart Rate 2019-10-02 21:53:00 [facility] [place] Temperature Oral (F) 2019-10-02 21:53:00 97.9 F [facility] Denis Height 2019-10-02 21:53:00 165.1 cm [facility] Denis Weight 2019-10-02 21:53:00 [facility] Denis BMI Calculated 2019-10-02 21:53:00 Memori al Denis Height 2019-08-15 14:54:00 165.1 cm [facility] [place] Weight 2019-08-15 14:54:00 [facility] Denis BMI Calculated 2019-08-15 14:54:00 Memori al Denis Systolic (mm Hg) 2019-08-15 14:54:00 Turner rial [place] Diastolic (mm Hg) 2019-08-15 14:54:00 [facility] [place] Heart Rate 2019-08-15 14:54:00 [facility] Denis Temperature Oral (F) 2019-08-15 14:54:00 97.6 F [facility] Denis Systolic (mm Hg) 2019-07-31 15:37:00 Turner rial [place] Diastolic (mm Hg) 2019-07-31 15:37:00 [facility] [place] Heart Rate 2019-07-31 15:37:00 [facility] [place] Temperature Oral (F) 2019-07-31 15:37:00 98.2 F [facility] Denis Height 2019-07-31 15:37:00 165.1 cm [facility] [place] Weight 2019-07-31 15:37:00 [facility] Denis BMI Calculated 2019-07-31 15:37:00 Memori al Denis Weight 2019-03-27 15:18:00 [facility] Denis BMI Calculated 2019-03-27 15:18:00 Memori al Denis Height 2019-03-27 15:18:00 165.1 cm [facility] Denis Temperature Oral (F) 2019-03-27 15:18:00 98.4 F [facility] Denis Heart Rate 2019-03-27 15:18:00 [facility] Denis Systolic (mm Hg) 2019-03-27 15:18:00 Turner rial [place] Diastolic (mm Hg) 2019-03-27 15:18:00 Mem o[facility] [place] Height 2019-01-02 19:16:00 165.1 cm [facility] Denis BMI Calculated 2019-01-02 19:16:00 Memori al Denis Weight 2019-01-02 19:16:00 [facility] [place] Heart Rate 2019-01-02 19:16:00 [facility] [place] Systolic (mm Hg) 2019-01-02 19:16:00 Turner rial [place] Diastolic (mm Hg) 2019-01-02 19:16:00 Mem orial Denis Height 2019-01-02 14:26:00 167.01 cm [facility] Denis BMI Calculated 2019-01-02 14:26:00 Memori al Denis Weight 2019-01-02 14:26:00 [facility] [place] Heart Rate 2019-01-02 14:26:00 [facility] Denis Temperature Oral (F) 2019-01-02 14:26:00 97.9 F [facility] Denis Systolic (mm Hg) 2019-01-02 14:26:00 Turner rial [place] Diastolic (mm Hg) 2019-01-02 14:26:00 Mem orial Denis Systolic (mm Hg) 2018-07-18 18:33:00 Turner rial Denis Diastolic (mm Hg) 2018-07-18 18:33:00 Mem orial Denis Heart Rate 2018-07-18 18:33:00 [facility] Denis Weight 2018-07-18 18:33:00 [facility] Denis BMI Calculated 2018-06-11 18:31:00 Memori al Denis Weight 2018-06-11 18:31:00 [facility] [place] Systolic (mm Hg) 2018-06-11 18:31:00 Turner rial [place] Diastolic (mm Hg) 2018-06-11 18:31:00 Mem o[facility] [place] Height 2018-06-11 18:31:00 170.18 cm [facility] Denis Temperature Oral (F) 2018-06-11 18:31:00 98.3 F [facility] Denis Heart Rate 2018-06-11 18:31:00 [facility] Denis Weight 2018-01-10 16:14:00 [facility] Denis Height 2018-01-10 16:14:00 170.18 cm [facility] [place] BMI Calculated 2018-01-10 16:14:00 [facility] [place] Heart Rate 2018-01-10 16:14:00 [facility] Denis Systolic (mm Hg) 2018-01-10 16:14:00 Turner rial Denis Diastolic (mm Hg) 2018-01-10 16:14:00 Mem orial Denis BMI Calculated 2018-01-09 15:06:00 Memori al Denis Height 2018-01-09 15:06:00 170.18 cm [facility] [place] Weight 2018-01-09 15:06:00 [facility] [place] Systolic (mm Hg) 2018-01-09 15:06:00 Turner rial [place] Diastolic (mm Hg) 2018-01-09 15:06:00 Mem orial [place] Heart Rate 2018-01-09 15:06:00 [facility] [place] Temperature Oral (F) 2018-01-09 15:06:00 97.9 F [facility] [place] Weight 2016-11-14 16:17:00 [facility] [place] Height 2016-11-14 16:17:00 170.18 cm [facility] [place] BMI Calculated 2016-11-14 16:17:00 Memori al Denis Respitory Rate 2015-12-31 01:25:00 Memori al [place] Systolic (mm Hg) 2015-12-31 00:50:00 Turner rial Denis Respitory Rate 2015-12-31 00:50:00 Memori al [place] Heart Rate 2015-12-31 00:50:00 [facility] Denis Systolic (mm Hg) 2015-12-31 00:40:00 Turner rial Denis Respitory Rate 2015-12-31 00:40:00 Memori al [place] Heart Rate 2015-12-31 00:40:00 [facility] Denis Heart Rate 2015-12-31 00:30:00 [facility] Denis Systolic (mm Hg) 2015-12-31 00:30:00 Turner rial [place] Temperature Oral (F) 2015-12-30 23:50:00 37.1 Linda [facility] [place] Height 2015-12-30 19:23:00 169 cm [facility] [place] Weight 2015-12-30 19:23:00 [facility] [place] Temperature Oral (F) 2015-12-30 19:23:00 36.6 Linda [facility] [place] Height 2015-12-29 14:13:00 170 cm [facility] Denis Weight 2015-12-29 14:13:00 [facility] [place] Procedures Procedure Date / Time Performed Performing Clinician [facility] e Diabetic retinal eye 2019-12-11 06:00:00 Jourdan Barrios exam<sup>1</sup> Mammogram 2017-05-05 05:00:00 Aylin hunt Colonoscopy<sup>2</sup> 2016-11-17 06:00:00 Turner rial [place] OPEN REDUCTION INTERNAL 2015-12-30 22:13:00 Jose Francisco Johnson Memo rial [place] FIXATION RADIUS INTRA-ARTICULAR W/3 FRAGMENTS 81424 (Right)<sup>1</sup> Repair of 2015-12-30 06:00:00 Aylin hunt wrist<sup>1</sup> skin cancer removed from 2011-10-22 00:00:00 Mem orial [place] arm Skin cancer of [facility] arm<sup>2</sup> Procedure<sup>2</sup> [facility] ermann Tubal ligation [facility] Eye operation [facility] Biopsy of breast [facility] Vicente n bilateral radial [facility] n kerototomy bilateral tubal ligation Memoria l [place] colonoscopy [facility] Encounters Start End Encounter Admission Attending Care Care Encounter Source Date/Time Date/Time Type Type Clinicians Facility Department ID 2021-09-20 2021-09-20 Outpatient [facility], [facility] [id number] [place] 00:00:00 00:00:00 RAZIUDDIN 834 Meth aiden 2021-09-12 2021-09-13 Between nullFlavo [facility] Family [id number] Memoria 14:18:24 14:18:24 Visit r Medicine 62 l Carrillo Zhang n 2021-09-12 2021-09-13 Between nullFlavo [facility] Family [id number] Memoria 00:56:47 00:56:47 Visit r Medicine 61 l Carrillo Zhang n 2021-09-09 2021-09-10 Outpatient nullFlavo [facility] Family 3 [id number] Memoria 20:00:00 05:59:59 r Medicine 52 l Vizcainojoanne Zhang n 2021-09-06 2021-09-08 Phone nullFlavo [facility] Family [id number] Memoria 21:38:38 05:59:59 Message r Medicine 13 l Carrillo hZang n 2021-09-07 2021-09-07 Outpatient SUDARSHAN [facility] [id number] [place] 00:00:00 00:00:00 MARY 513 Method i 2021-09-05 2021-09-06 Between nullFlavo [facility] Family [id number] Memoria 15:33:59 15:33:59 Visit r Medicine 59 l Carrillo Zhang n 2021-07-14 2021-07-26 Inpatient SOLIPURAM, [facility] [id number] [place] 00:00:00 00:00:00 MICHELLE 329 Method i 2021-07-13 2021-07-13 Outpatient OPFARRAH, [facility] [id number] [place] 00:00:00 00:00:00 KRISTIAN 104 Method i 2021-06-30 2021-06-30 Outpatient [facility] [id number] [place] 00:00:00 00:00:00 RAZIUDDIN 273 Meth aiden 2021-06-07 2021-06-07 Outpatient EKERUO, [facility] [id number] [place] 00:00:00 00:00:00 MARY 787 Method i 2021-06-07 2021-06-07 Outpatient DAOURA, [facility] [id number] [place] 00:00:00 00:00:00 NILESH 546 Method i 2021-05-19 2021-05-26 Inpatient MATHIVANAN, [facility] [id number] [place] 00:00:00 00:00:00 COURTNEY 275 Method i 2021-05-12 2021-05-12 Outpatient AHMED, [facility] [id number] [place] 00:00:00 00:00:00 RAZIUDDIN 199 Meth aiden 2021-05-11 2021-05-11 Outpatient EKERUO, [facility] [id number] [place] 00:00:00 00:00:00 MARY 640 Method i 2021-05-06 2021-05-06 Outpatient EKERUO, [facility] [id number] [place] 00:00:00 00:00:00 MARY 435 Method i 2021-05-06 2021-05-06 Outpatient EKERUO, [facility] [id number] [place] 00:00:00 00:00:00 MARY 537 Method i 2021-05-03 2021-05-03 Outpatient EKERUO, [facility] [id number] [place] 00:00:00 00:00:00 MARY 709 Method i 2021-04-08 2021-04-21 Inpatient SOLIPURAM, [facility] [id number] [place] 00:00:00 00:00:00 MICHELLE 685 Method i 2021-03-09 2021-03-09 Outpatient AHMED, [facility] [id number] [place] 00:00:00 00:00:00 RAZIUDDIN 101 Meth aiden 2021-02-24 2021-02-24 Outpatient [facility] [id number] Memoria 01:00:00 04:59:00 r Denis 58 l Hart Karen 2021-02-23 2021-02-23 Outpatient AHMED, [facility] [id number] [facility] 20:00:00 23:59:00 RAZIUDDIN 2021-02-10 2021-02-10 Outpatient ADRIANA, [facility] [id number] [place] 00:00:00 00:00:00 RAZIUDDIN 598 Meth aiden 2021-02-03 2021-02-08 Inpatient MARY ALICE, [facility] [id number] [place] 00:00:00 00:00:00 COURTNEY 060 Method i 2021-01-20 2021-01-20 Outpatient [facility] [id number] [place] 00:00:00 00:00:[address] 2021-01-18 2021-01-19 Outpatient nullFlavo [facility] 3 [id number] Memoria 19:30:00 04:59:59 r Medicine 51 l Carrillo Zhang n 2021-01-18 2021-01-18 Outpatient [facility] [id number] [place] 00:00:00 00:00:00 398 Method i 2021-01-14 2021-01-15 Between nullFlavo [facility] Family [id number] Memoria 13:38:03 13:38:03 Visit r Medicine 57 l Carrillo Zhang n 2021-01-12 2021-01-12 Outpatient ADRIANA, [facility] [id number] [place] 00:00:00 00:00:00 RAZIUDDIN 554 Meth aiden 2020-12-31 2021-01-05 [id number] [place] 00:00:00 00:00:00 COURTNEY 541 Method i 2020-12-17 2020-12-28 Inpatient MARY ALICE, [facility] Vidya [id number] [place] 00:00:00 00:00:00 COURTNEY 559 Method i 2020-10-11 2020-10-18 Inpatient MARY ALICE, [facility] [id number] [place] 00:00:00 00:00:00 COURTNEY 271 Method i 2020-09-15 2020-09-16 Outpatient nullFlavo [facility] 3 [id number] Memoria 16:30:00 05:59:59 r Medicine 50 l Carrillo davis 2020 2020-09-07 Inpatient SOLIPURAM, [facility] [id number] [place] 00:00:00 00:00:00 MICHELLE 464 Method i 2020-08-13 2020-09-01 Inpatient CAMILLE [facility] [id number] [place] 00:00:00 00:00:00 MICHELLE 557 Method i 2020-08-13 2020-08-14 Outpt Diag nullFlavo [facility] [id number] Memoria 18:10:00 04:59:00 Services r Outpatient 06 l Imaging [place] Hart 2020-08-11 2020-08-12 Between nullFlavo [facility] Family [id number] Memoria 17:58:19 17:58:19 Visit r Medicine 56 l Carrillo Zhang n 2020-08-03 2020-08-04 Outpatient nullFlavo [facility] Family 3 [id number] Memoria 15:15:00 04:59:59 r Medicine 49 l Carrillo Zhang n 2020-06-22 2020-06-23 Outpt Diag nullFlavo [facility] [id number] Memoria 17:02:00 04:59:00 Services r Outpatient 05 l Imaging [place] Hart 2020-06-17 2020-06-17 Ambulatory nullFlavo [facility] [id number] Memoria 19:00:00 19:00:00 Pre-Reg r Nephrology 46 l Carrillo Zhang n 2020-06-10 2020-06-10 Outpatient [facility] [id number] Memoria 11:15:00 11:15:00 47 l [place] 2020-06-02 2020-06-03 Outpatient nullFlavo [facility] [id number] Memoria 19:45:00 04:59:59 r Nephrology 48 l Carrillo Zhang n 2020-05-20 2020-05-20 Outpatient MANGIN, [facility] [id number] [place] 00:00:00 00:00:00 FABIOLA 832 Method i 2020-03-23 2020-03-25 Phone nullFlavo [facility] [id number] Memoria 16:17:50 04:59:59 Message r Nephrology 12 l Carrillo Zhang n 2020-03-18 2020-03-19 Outpatient nullFlavo [facility] [id number] Memoria 19:00:00 04:59:59 r Nephrology 41 l Carrillo Zhang n 2020-03-08 2020-03-10 Phone nullFlavo MG [id number] Memoria 18:35:51 04:59:59 Message r Nephrology 11 leonard Watson Denis 2020-02-11 2020-02-12 Outpatient nullFlavo [facility] 3 [id number] Memoria 15:15:00 04:59:59 r Medicine 45 leonard Zhang ryan 2020-02-11 2020-02-11 Ambulatory nullFlavo [facility] Family 3 [id number] Memoria 15:15:00 15:15:00 Pre-Reg r Medicine 44 l Carrillo Zhang ryan 2020-02-05 2020-02-07 Phone nullFlavo MG [id number] Memoria 13:23:32 04:59:59 Message r Nephrology 10 leonard Zhang ryan 2020-02-05 2020-02-06 Between nullFlavo [facility] Family [id number] Memoria 14:14:54 14:14:54 Visit r Medicine 52 leonard Rameycora davis 2020-02-05 2020-02-05 Outpatient [facility] [place] [id number] Memoria 11:30:00 11:30:00 43 leonard Denis 2020-02-02 2020-02-04 Phone nullFlavo [facility] Family [id number] Memoria 20:00:15 04:59:59 Message r Medicine 09 leonard Zhang ryan 2020-01-30 2020-02-01 Phone nullFlavo [facility] Family [id number] Memoria 17:18:28 04:59:59 Message r Medicine 08 leonard Zhang ryan 2020-01-30 2020-02-01 Phone nullFlavo [facility] [id number] Memoria 13:26:55 04:59:59 Message r Nephrology 07 leonard Zhang ryan 2019-12-16 2019-12-17 Outpatient nullFlavo [facility] Family 3 [id number] Memoria 20:15:00 05:59:59 r Medicine 42 leonard Rameycora davis 2019-11-13 2019-11-15 Phone nullFlavo [facility] Family [id number] Memoria 14:22:27 05:59:59 Message r Medicine 06 leonard Carrillo Rameycora davis 2019-10-17 2019-10-19 Phone nullFlavo [facility] Family [id number] Memoria 16:06:04 05:59:59 Message r Medicine 05 leonard davis 2019-10-02 2019-10-03 Between nullFlavo [facility] [id number] Memoria 20:05:03 20:05:03 Visit r Nephrology 45 leonard Barrios 2019-10-02 2019-10-03 Outpatient nullFlavo [facility] [id number] Memoria 20:45:00 05:59:59 r Nephrology 38 leonard davis 2019-09-26 2019-09-27 Between nullFlavo MG [id number] Memoria 00:07:10 00:07:10 Visit r Nephrology 43 leonard Barrios 2019-09-25 2019-09-25 Outpatient [facility] IE [id number] Memoria 09:00:00 09:00:00 39 leonard Barrios 2019-09-16 2019-09-17 Between nullFlavo [facility] [id number] Memoria 21:47:12 21:47:12 Visit r Medicine 41 leonard Zhang ryan 2019-08-19 2019-08-20 Between nullFlavo [facility] Family [id number] Memoria 22:13:13 22:13:13 Visit r Medicine 40 leonard davis 2019-08-15 2019-08-16 Outpatient nullFlavo [facility] Family 3 [id number] Memoria 14:45:00 04:59:59 r Medicine 40 leonard davis 2019-08-07 2019-08-07 Ambulatory nullFlavo [facility] 3 [id number] Memoria 16:00:00 16:00:00 Pre-Reg r Medicine 36 leonard Zhang ryan 2019-07-31 2019-08-01 Outpatient nullFlavo [facility] [id number] Memoria 15:00:00 04:59:59 r Nephrology 35 leonard davis 2019-07-31 2019-07-31 Outpatient [facility] IE [id number] Memoria 12:00:00 12:00:00 37 leonard Barrios 2019-07-03 2019-07-05 Phone nullFlavo [facility] Family [id number] Memoria 15:15:06 04:59:59 Message r Medicine 04 leonard Zhang ryan 2019-07-03 2019-07-05 Phone nullFlavo [facility] [id number] Memoria 15:10:51 04:59:59 Message r Nephrology 03 leonard davis 2019-07-03 2019-07-03 [place] [id number] Memoria 20:00:00 20:00:00 Pre-Reg r Nephrology 34 leonard davis 2019-06-29 2019-06-30 Between nullFlavo [facility] [id number] Memoria 20:15:16 20:15:16 Visit r Nephrology 34 leonard Rameyann 2019-06-11 2019-06-13 Phone nullFlavo MG [id number] Memoria 15:29:54 04:59:59 Message r Nephrology 02 leonard Barrios 2019-06-12 2019-06-12 [place] [id number] Memoria 16:30:00 16:30:00 Pre-Reg r Nephrology 29 leonard davis 2019-06-12 2019-06-12 [place] [id number] Memoria 16:15:00 16:15:00 Pre-Reg r Nephrology 30 leonard davis 2019-06-12 2019-06-12 Ambulatory nullFlavo [facility] 3 [id number] Memoria 15:15:00 15:15:00 Pre-Reg r Medicine 31 leonard davis 2019-06-09 2019-06-10 [facility] [id number] [place] 10:05:00 17:55:00 [facility]IN [facility] 2019-05-12 2019-05-14 Outpatient [facility] TE[facility] [id number] [place] 21:36:00 19:00:00 EDUIN [facility] 2019-05-12 2019-05-13 Outpatient nullFlavo [facility] [id number] Memoria 20:40:00 04:59:59 r Care 33 leonard Rameyann 2019-03-27 2019-03-28 Outpatient nullFlavo [facility] 3 [id number] Memoria 15:15:00 04:59:59 r Medicine 32 leonard davis 2019-01-05 2019-01-06 Between nullFlavo [facility] [id number] Memoria 19:00:16 19:00:16 Visit r Medicine 29 leonard Zhang ryan 2019-01-02 2019-01-03 Between nullFlavo [facility] [id number] Memoria 15:02:37 15:02:37 Visit r Nephrology 27 l Carrillo Zhang n 2019-01-02 2019-01-03 Outpatient nullFlavo [facility] [id number] Memoria 18:45:00 04:59:59 r Nephrology 28 l Carrillo davsi 2019-01-02 2019-01-03 Outpatient nullFlavo [facility] Family 3 [id number] Memoria 14:15:00 04:59:59 r Medicine 22 l Carrillo Zhang ryan 2018-12-31 2019-01-01 Between nullFlavo MG [id number] Memoria 23:59:47 23:59:47 Visit r Nephrology 26 l Carrillo Zhang ryan 2018-12-27 2018-12-28 Between nullFlavo MG [id number] Memoria 22:00:33 22:00:33 Visit r Nephrology 24 leonard Zhang ryan 2018-12-27 2018-12-28 Between nullFlavo MG [id number] Memoria 04:48:44 04:48:44 Visit r Nephrology 23 l Carrillo Zhang ryan 2018-11-14 2018-11-14 Ambulatory nullFlavo [facility] [id number] Memoria 20:30:00 20:30:00 Pre-Reg r Nephrology 27 leonard Zhang ryan 2018-11-14 2018-11-14 Ambulatory nullFlavo [facility] [id number] Memoria 18:40:00 18:40:00 Pre-Reg r Nephrology 24 leonard Zhang ryan 2018-11-07 2018-11-07 Ambulatory nullFlavo [facility] [id number] Memoria 15:30:00 15:30:00 Pre-Reg r Internal 25 leonard Vizcaino 2018-07-11 2018-08-10 Ambulatory nullFlavo [facility] [id number] Memoria 12:45:00 12:45:00 Pre-Reg r Internal 23 leonard Vizcaino 2018-07-18 2018-07-19 Outpatient nullFlavo [facility] [id number] Memoria 19:15:00 04:59:59 r Nephrology 26 l Carrillo Zhang ryan 2018-07-18 2018-07-19 Outpatient nullFlavo [facility] [id number] Memoria 18:00:00 04:59:59 r Nephrology 21 l Carrillo Vicente davis 2018-06-11 2018-06-12 Outpatient nullFlavo [facility] 3 [id number] Memoria 18:30:00 04:59:59 r Medicine 20 l Carrillo Zhang n 2018-01-10 2018-01-11 Outpatient nullFlavo [facility] [id number] Memoria 16:00:00 04:59:59 r Nephrology 19 leonard Zhang n 2018-01-09 2018-01-10 Outpatient nullFlavo [facility] 3 [id number] [facility] 15:00:00 04:59:59 r Medicine 18 l Carrillo Zhang n 2017-07-19 2017-07-19 Outpatient [facility] [id number] [facility] 10:40:00 10:40:00 16 leonard Barrios 2017-06-27 2017-06-27 Outpatient [facility] [id number] [facility] 11:30:00 11:30:00 17 leonard Barrios 2017-03-01 2017-03-01 Outpatient [facility] [id number] [facility] 11:40:00 11:40:00 11 leonard Barrios 2016-12-26 2016-12-26 Outpatient [facility] [id number] [facility] 14:30:00 14:30:00 15 leonard Barrios 2016-11-27 2016-11-27 Outpatient [facility] [id number] [facility] 10:00:00 10:00:00 08 leonard Barrios 2016-11-17 2016-11-17 Bedded nullFlavo [facility] [id number] Mem[facility] 11:48:35 14:30:00 Outpatient connie Barrios 13 l Bhavani Jones 2016-11-09 2016-11-09 Outpatient [facility] [id number] [facility] 13:15:00 13:15:00 14 leonard Barrios 2016-10-18 2016-10-18 Outpatient [facility] [id number] [facility] 09:30:00 09:30:00 12 leonard Barrios 2016-10-18 2016-10-18 Outpatient [facility] [id number] [facility] 09:30:00 09:30:00 13 leonard Barrios 2016-10-12 2016-10-12 Outpatient [facility] [id number] [facility] 10:20:00 10:20:00 09 leonard Barrios 2016-07-13 2016-07-13 Outpatient [facility] MHIE [id number] [facility] 13:00:00 13:00:00 04 l Denis 2016-05-24 2016-05-24 Outpatient [facility] [place] [id number] [facility] 11:15:00 11:15:00 06 leonard [place] 2016-04-13 2016-05-13 OP Therapy nullFlavo SMR [id number] Memoria 13:00:00 04:59:00 Patients r Girish 03 l Benji Barrios 2016-03-14 2016-04-13 OP Therapy nullFlavo SMR [id number] Memoria 17:39:00 04:59:00 Patients r Girish 02 l Trace Denis 2016-03-09 2016-04-08 OP Therapy nullFlavo SMR Sugar [id number] [id number] Memoria 19:00:00 04:59:00 Patients r [place] 01 leonard [place] 2016-03-13 2016-03-14 Outpt Diag nullFlavo [facility] [id number] Memoria 16:14:00 04:59:00 Services r Outpatient 04 l Imaging [place] Hart 2016-02-08 2016-03-09 OP Therapy nullFlavo SMR Sugar [id number] Memoria 19:00:00 04:59:00 Patients r [place] 00 leonard Denis 2016-03-02 2016-03-02 [facility] [id number] Memoria 10:20:00 10:20:00 01 leonard Denis 2016-02-29 2016-03-01 Outpt Diag nullFlavo [facility] [id number] Memoria 14:59:00 04:59:00 Services r Outpatient 03 l Imaging Denis Brittany 2016-01-20 2016-01-21 Outpt Diag nullFlavo [facility] [id number] Memoria 18:11:00 04:59:00 Services r Outpatient 01 l Imaging [place] Hart 2015-12-30 2015-12-30 Outpatient nullFlavo [facility] [id number] Memoria 12:50:31 19:25:00 r leonard [place] 2015-11-30 2015-12-01 Outpt Diag nullFlavo [facility] [id number] Memoria 12:58:00 05:59:00 Services r Outpatient 00 l Imaging [place] Hart 2015-11-19 2015-11-19 Outpatient [facility] [place] [id number] Memoria 10:15:00 10:15:00 02 l Denis 2015-09-02 2015-09-02 Outpatient [facility] [place] [id number] Memoria 11:30:00 11:30:00 00 l Denis 2013-12-18 2013-12-18 Outpatient Gio [facility] [id number] Memoria 01:16:00 05:59:00 r Denis [id number] l [place] 1 Karen nn 2013-12-17 2013-12-17 [facility] [id number] Memoria 19:16:00 19:16:00 r [place] 01 l [place] 2013-12-02 2013-12-02 [facility] [id number] Memoria 19:43:00 19:43:00 r [place] 00 l [place] Results Test Description Test Time Test Comments Results Result Comments Source SARS-CoV-2 (COVID-19) RNA [Presence] in Respiratory sp ecimen by 2021-07-14 22:34:30 DANIEL with probe detection Test Item Value Reference Range Interpretation Comme nts SARS-CoV-2 (COVID-19) RNA [Presence] in Respiratory Not detected No t-Detected specimen by DANIEL with probe detection (test code = 06784-9) Whether patient is employed in a healthcare setting (test code = 15966-9) Whether the patient has symptoms related to condition of interest (test code = 60052-8) Patient was hospitalized because of this condition (test code = 49888-1) Whether the patient was admitted to intensive care unit (ICU) for condition of interest (test code = 65084-1) Whether patient resides in a congregate care setting (test code = 45871-5) SARS-CoV-2 (COVID-19) RNA [Presence] in Respiratory specimen by DANIEL with probe yfkrjprfb6511-76-03 22:35:42 Test Item Value Reference Range Interpretation Comments SARS-CoV-2 (COVID-19) RNA Not detected Not-Detected [Presence] in Respiratory specimen by DANIEL with probe detection (test code = 12424-8) Whether patient is employed in a healthcare setting (test code = 63885-7) Whether the patient has symptoms related to condition of interest (test code = 11717-1) Patient was hospitalized because of this condition (test code = 67759-5) Whether the patient was admitted to intensive care unit (ICU) for condition of interest (test code = 52940-4) Whether patient resides in a congregate care setting (test code = 19539-8) SARS-CoV-2 (COVID-19) RNA [Presence] in Respiratory specimen by DANIEL with probe skgvlbpev9141-20-36 22:46:10 Test Item Value Reference Range Interpretation Comments SARS-CoV-2 (COVID-19) RNA Not detected Not-Detected [Presence] in Respiratory specimen by DANIEL with probe detection (test code = 59744-0) Whether patient is employed in a healthcare setting (test code = 73226-0) Whether the patient has symptoms related to condition of interest (test code = 34413-5) Patient was hospitalized because of this condition (test code = 87692-8) Whether the patient was admitted to intensive care unit (ICU) for condition of interest (test code = 10624-0) Whether patient resides in a congregate care setting (test code = 53097-9) SARS-CoV-2 (COVID-19) RNA [Presence] in Respiratory specimen by DANIEL with probe xcaunlhlj6310-58-89 01:54:24 Test Item Value Reference Range Interpretation Comments SARS-CoV-2 (COVID-19) RNA Not detected Not-Detected [Presence] in Respiratory specimen by DANIEL with probe detection (test code = 97165-4) Whether patient is employed in a healthcare setting (test code = 98643-0) Whether the patient has symptoms related to condition of interest (test code = 76158-9) Patient was hospitalized because of this condition (test code = 90782-3) Whether the patient was admitted to intensive care unit (ICU) for condition of interest (test code = 76464-2) Whether patient resides in a congregate care setting (test code = 76639-5) SARS-CoV-2 (COVID-19) RNA [Presence] in Respiratory specimen by DANIEL with probe vplecuzkm4534-20-71 21:44:06 Test Item Value Reference Range Interpretation Comments SARS-CoV-2 (COVID-19) RNA Not detected Not-Detected [Presence] in Respiratory specimen by DANIEL with probe detection (test code = 89007-0) Whether patient is employed in a healthcare setting (test code = 65859-5) Whether the patient has symptoms related to condition of interest (test code = 95941-5) Patient was hospitalized because of this condition (test code = 44150-3) Whether the patient was admitted to intensive care unit (ICU) for condition of interest (test code = 92038-1) Whether patient resides in a congregate care setting (test code = 59532-0) SARS-CoV-2 (COVID-19) RNA [Presence] in Respiratory specimen by DANIEL with probe thlrjrhwx0224-94-18 00:36:59 Test Item Value Reference Range Interpretation Comments SARS-CoV-2 (COVID-19) RNA Not detected Not-Detected [Presence] in Respiratory specimen by DANIEL with probe detection (test code = 73621-0) SARS-CoV-2 (COVID-19) RNA [Presence] in Respiratory specimen by DANIEL with probe cejsfxkym7660-80-89 17:35:35 Test Item Value Reference Range Interpretation Comments SARS-CoV-2 (COVID-19) RNA Not detected Not-Detected [Presence] in Respiratory specimen by DANIEL with probe detection (test code = 97546-0) SARS-CoV-2 (COVID-19) RNA [Presence] in Respiratory specimen by DANIEL with probe tnttcxlxb6298-24-75 18:03:30 Test Item Value Reference Range Interpretation Comments SARS-CoV-2 (COVID-19) RNA Not detected Not-Detected [Presence] in Respiratory specimen by DANIEL with probe detection (test code = 80934-2) SARS-CoV-2 (COVID-19) RNA [Presence] in Respiratory specimen by DANIEL with probe iidudfvgb1057-85-57 10:06:03 Test Item Value Reference Range Interpretation Comments SARS-CoV-2 (COVID-19) RNA Not detected Not-Detected [Presence] in Respiratory specimen by DANIEL with probe detection (test code = 63713-9) SARS-CoV-2 (COVID-19) RNA [Presence] in Respiratory specimen by DANIEL with probe qxdnhrwnf9325-42-72 05:11:58 Test Item Value Reference Range Interpretation Comments SARS-CoV-2 (COVID-19) RNA Not detected Not-Detected [Presence] in Respiratory specimen by DANIEL with probe detection (test code = 10415-1) SARS-CoV-2 (COVID-19) RNA [Presence] in Respiratory specimen by DANIEL with probe fdaruqpvl4774-97-43 03:34:16 Test Item Value Reference Range Interpretation Comments SARS-CoV-2 (COVID-19) RNA Not detected Not-Detected [Presence] in Respiratory specimen by DANIEL with probe detection (test code = 64298-8) SARS-CoV-2 (COVID-19) RNA [Presence] in Respiratory specimen by DANIEL with probe rdmeexxqr1299-35-94 10:06:41 Test Item Value Reference Range Interpretation Comments SARS-CoV-2 (COVID-19) RNA Not detected Not-Detected [Presence] in Respiratory specimen by DANIEL with probe detection (test code = 35724-9) [id number] 12:33:00 Test Item Value Reference Range Interpretation Comments Chol (test code = Chol) 129 [facility]WdttrkbHMHICS2855-38-15 12:33:00 Test Item Value Reference Range Interpretation Comments HDL (test code = HDL) 37 [facility]wallXogxihePYMAUY6873-18-86 12:33:00 Test Item Value Reference Range Interpretation Comments Trig (test code = Trig) 76 [facility]wallWpfdepzNHVIMV1609-48-45 12:33:00 Test Item Value Reference Range Interpretation Comments LDL (Calculated) (test code = LDL 76 (Calculated)) [facility]wallScmkvsjNILUZN2842-13-62 12:33:00 Test Item Value Reference Range Interpretation Comments CHD Risk (test code = CHD Risk) 3.5 [facility]wallToyswfhQFPDOC8692-27-39 12:33:00 Test Item Value Reference Range Interpretation Comments Non HDL Chol (test code = Non HDL Chol) 92 [facility] [employer] SKOFE0420-17-47 14:47:00 Test Item Value Reference Range Interpretation Comments Vitamin D, 25-OH, Total (test code = 37 30-100 Vitamin D, 25-OH, Total) [facility] [employer] [id number] 14:47:00 Test Item Value Reference Range Interpretation Comments U Creat mg/dL (test code = U Creat 114 20-275 mg/dL) [facility] [employer] [id number] 14:47:00 Test Item Value Reference Range Interpretation Comments U Prot/Creat (test code = U Prot/Creat) 430 21-161 [facility] [employer] [id number] 14:47:00 Test Item Value Reference Range Interpretation Comments U Prot/Creat (test code = U 0.430 1 0.021-0.161 Prot/Creat) [place] 245360-08-06 14:47:00 Test Item Value Reference Range Interpretation Comments U Protein (test code = U Protein) 49 5-24 [place] 245360-08-06 14:47:00 Test Item Value Reference Range Interpretation Comments Glucose Lvl (test code = Glucose Lvl) 103 65-99 [place] 245360-08-06 14:47:00 Test Item Value Reference Range Interpretation Comments BUN (test code = BUN) 24 7-25 [place] 245360-08-06 14:47:00 Test Item Value Reference Range Interpretation Comments Creatinine Lvl (test code = Creatinine 1.32 0.50-0.99 Lvl) [place] 245360-08-06 14:47:00 Test Item Value Reference Range Interpretation Comments eGFR NON-AFR. LEBANESE (test code = 43 eGFR NON-AFR. LEBANESE) [facility]2020-08-06 14:47:00 Test Item Value Reference Range Interpretation Comments eGFR (test code = eGFR 50 ) [place] 245360-08-06 14:47:00 Test Item Value Reference Range Interpretation Comments B/C Ratio (test code = B/C Ratio) 18 6-22 [place] 245360-08-06 14:47:00 Test Item Value Reference Range Interpretation Comments Sodium Lvl (test code = Sodium Lvl) 138 135-146 [place] 245360-08-06 14:47:00 Test Item Value Reference Range Interpretation Comments Potassium Lvl (test code = Potassium 4.4 3.5-5.3 Lvl) [place] 245360-08-06 14:47:00 Test Item Value Reference Range Interpretation Comments Chloride Lvl (test code = Chloride Lvl) 102 98-110 [place] 245360-08-06 14:47:00 Test Item Value Reference Range Interpretation Comments CO2 (test code = CO2) 30 20-32 [place] 245360-08-06 14:47:00 Test Item Value Reference Range Interpretation Comments Calcium Lvl (test code = Calcium Lvl) 9.4 8.6-10.4 [place] 245360-08-06 14:47:00 Test Item Value Reference Range Interpretation Comments Phosphorus (test code = Phosphorus) 4.8 2.5-4.5 [facility]2020-08-06 14:47:00 Test Item Value Reference Range Interpretation Comments Albumin Lvl (test code = Albumin Lvl) 3.9 3.6-5.1 [facility]TknzikcYUILPJIOUQ8370-28-92 14:47:00 Test Item Value Reference Range Interpretation Comments Plt Count Estimated (test code = DECREASED Plt Count Estimated) [facility]aTqyzlmfGWGJZNKAQO9268-77-66 14:47:00 Test Item Value Reference Range Interpretation Comments WBC X 10x3 (test code = WBC X 10x3) 7.2 3.8-10.8 [facility]aIoouevfGADMDYVEBB2273-83-98 14:47:00 Test Item Value Reference Range Interpretation Comments RBC X 10x6 (test code = RBC X 10x6) 3.71 3.80-5.10 [facility]aAlmuedwPXJFLSPVLW5944-29-81 14:47:00 Test Item Value Reference Range Interpretation Comments Hgb (test code = Hgb) 10.7 11.7-15.5 [facility]aQlxocuaWEVXXIQSGD2741-71-59 14:47:00 Test Item Value Reference Range Interpretation Comments Hct (test code = Hct) 33.9 35.0-45.0 [facility]aBrqfgamOVSWAFKNJX1516-20-61 14:47:00 Test Item Value Reference Range Interpretation Comments MCV (test code = MCV) 91.4 80.0-100.0 [facility]aPwdvistVKMIFUTRST7771-91-21 14:47:00 Test Item Value Reference Range Interpretation Comments MCH (test code = MCH) 28.8 pg 27.0-33.0 [facility]aGvgbyhcDIHLYNSMQL6373-27-75 14:47:00 Test Item Value Reference Range Interpretation Comments MCHC (test code = MCHC) 31.6 32.0-36.0 [place] 958480-08-06 14:47:00 Test Item Value Reference Range Interpretation Comments RDW (test code = RDW) 13.9 11.0-15.0 [facility]aGlnmdtjGCAOJDPDBP8436-68-10 14:47:00 Test Item Value Reference Range Interpretation Comments Platelet (test code = Platelet) 110 140-400 [facility]aYlmfclaTIVEMADGBT5248-31-09 14:47:00 Test Item Value Reference Range Interpretation Comments MPV (test code = MPV) 11.7 7.5-12.5 [facility]TzwzsnkONFWUCAFWB5396-07-40 14:47:00 Test Item Value Reference Range Interpretation Comments Neutrophils # (test code = Neutrophils 5414 4713-4207 #) [facility] HospitalJwkivtcJYHUTHBNYQ4181-30-09 14:47:00 Test Item Value Reference Range Interpretation Comments Lymphocytes # (test code = Lymphocytes 4682 570-9550 #) [facility] HospitalAujrbyfLXGFIZHPDW4308-55-38 14:47:00 Test Item Value Reference Range Interpretation Comments Monocytes # (test code = Monocytes #) 461 200-950 [facility] HospitalQvtsbvvYDIWAPHRBI9161-74-88 14:47:00 Test Item Value Reference Range Interpretation Comments Eosinophils # (test code = Eosinophils 122 15-500 #) [facility] HospitalXehqcgoAGDNBRUYJL3722-64-04 14:47:00 Test Item Value Reference Range Interpretation Comments Basophils # (test code 50 See_Comment [Aut omated message] The = Basophils #) system which generated this result tra nsmitted reference range : <=200. The reference r edy was not used to int erpret this result as normal/abnormal . [facility] HospitalPplzrtcEAZEGGUEIR1098-66-24 14:47:00 Test Item Value Reference Range Interpretation Comments Segs (test code = Segs) 75.2 [facility] HospitalMwotiicVLKPOJYHVD2607-95-95 14:47:00 Test Item Value Reference Range Interpretation Comments Lymphocytes (test code = Lymphocytes) 16.0 [facility] HospitalYzylyajYZGXKDRPKC1401-09-51 14:47:00 Test Item Value Reference Range Interpretation Comments Monocytes (test code = Monocytes) 6.4 [facility] HospitalOhrocfuHYREBKZXFU3975-54-11 14:47:00 Test Item Value Reference Range Interpretation Comments Eosinophils (test code = Eosinophils) 1.7 [facility]wallLhwopqjABYFIHEEJI2057-97-02 14:47:00 Test Item Value Reference Range Interpretation Comments Basophils (test code = Basophils) 0.7 [facility]wallannREFERENCE LAB OXFSUIC6683-29-23 14:47:00 Test Item Value Reference Range Interpretation Comments Result 2 (Urine Culture) See Result Comment (test code = Result 2 (Urine Culture)) [facility]ann[facility] AND [id number] 14:47:00 Test Item Value Reference Range Interpretation Comments UA Color (test code = UA Color) YELLOW [facility]wall[facility] AND [id number] 14:47:00 Test Item Value Reference Range Interpretation Comments UA Turbidity (test code = UA CLOUDY Turbidity) [facility] [id number] 14:47:00 Test Item Value Reference Range Interpretation Comments UA Spec Grav (test code = UA Spec 1.017 1 1.001-1.035 Grav) [facility] [id number] 14:47:00 Test Item Value Reference Range Interpretation Comments UA pH (test code = UA pH) 5.5 1 5.0-8.0 [facility] [id number] 14:47:00 Test Item Value Reference Range Interpretation Comments UA Glucose (test code = UA Glucose) NEGATIVE [facility] [id number] 14:47:00 Test Item Value Reference Range Interpretation Comments UA Bili (test code = UA Bili) NEGATIVE [facility] [id number] 14:47:00 Test Item Value Reference Range Interpretation Comments UA Ketones (test code = UA Ketones) NEGATIVE [facility] [id number] 14:47:00 Test Item Value Reference Range Interpretation Comments UA Blood (test code = UA Blood) 1+ [facility] [id number] 14:47:00 Test Item Value Reference Range Interpretation Comments UA Protein (test code = UA Protein) 1+ [facility] [id number] 14:47:00 Test Item Value Reference Range Interpretation Comments UA Nitrite (test code = UA Nitrite) POSITIVE [facility] [id number] 14:47:00 Test Item Value Reference Range Interpretation Comments UA Leuk Est (test code = UA Leuk Est) 2+ [facility] [id number] 14:47:00 Test Item Value Reference Range Interpretation Comments UA WBC (test code = UA WBC) > OR = 60 [facility] [id number] 14:47:00 Test Item Value Reference Range Interpretation Comments UA RBC (test code = UA RBC) 0-2 [facility] [id number] 14:47:00 Test Item Value Reference Range Interpretation Comments UA Sq Epi (test code = UA Sq Epi) NONE SEEN [facility] [id number] 14:47:00 Test Item Value Reference Range Interpretation Comments UA Bacteria (test code = UA Bacteria) MANY [facility] [id number] 14:47:00 Test Item Value Reference Range Interpretation Comments UA Hyal Cast (test code = UA Hyal NONE SEEN Cast) [facility] AND [id number] 14:47:00 Test Item Value Reference Range Interpretation Comments UA Reflex (test code CULTURE INDICATED - = UA Reflex) RESULTS TO FOLLOW [facility] [id number] 14:47:00 Test Item Value Reference Range Interpretation Comments U Creat mg/dL (test code = U Creat 114 20-275 mg/dL) [facility] [id number] 14:47:00 Test Item Value Reference Range Interpretation Comments U Alb (test code = U Alb) 16.7 [facility] [id number] 14:47:00 Test Item Value Reference Range Interpretation Comments U Alb/Crea (test code = U Alb/Crea) 146 [facility] PROTEIN ELECTROPHORESIS-24HR [id number] 08:01:00 Test Item Value Reference Range Interpretation Comments CREATININE, 24 HOUR 1.45 g/24 h 0.50-2.15 URINE (test code = 15930354) PROTEIN/CREATININE 292 mg/g creat < OR = 114 H RATION (test code = 90981541) PROTEIN, TOTAL 24 HR UR 424 mg/24 h <150 H TEST PERFORMED (test code = 75810651) AT:[employer] [place] [address] [place] [address]OJFCANIECY BOYCE MD ALBUMIN (test code = 35 % 94113614) XOMNS-9-NJLCUTBXN (test 10 % code = 43285804) JVIDH-1-NUJHTNKEP (test 12 % code = 31506860) BETA GLOBULINS (test 25 % code = 35221166) GAMMA GLOBULINS (test 18 % code = 09460992) INTERPRETATION (test Albumin and code = 86622223) various dann bulin fractions detected on proteinelectrop ho resis. No abnormal protei n bands (Bence-Jonespro te inuria) detected.TEST PERFORMED AT:[employer] [place] [address] [place] [address]ENPFDNIECY BOYCE MD NEUTROPHIL CYTOPLASMIC [id number] 05:19:00 Test Item Value Reference Range Interpretation Comments ANCA SCREEN (test NEGATIVE NEGATIVE ANCA Scree n includes code = 55968189) evaluation for p-ANCA, c-ANCA andatypi alexandre p-ANCA. [...] ients with Crohn's disease .TEST PERFORMED AT: [employer] [facility] [id number] [place] [address]NVLKZOSCAR EISENBERG MD,PHD ,MICHI COMPREHENSIVE METABOLIC [id number] 06:25:00 Test Item Value Reference Range Interpretation [...] MORPH (test code = RBCMOR) NORMAL URINE [id number] 09:53:00 Test Item Value Reference Range Interpretation [...] = VD) 36.0 ng/mL 30.0-100.0 SERUM PROTEIN [id number] 06:20:00 Test Item Value Reference Range Interpretation Comments PROTEIN TOTAL (test 5.7 g/dL 6.1-8.1 L TEST PER FORMED AT:QUEST code = 97048456) DIAGNOSTICS -[id number] [facility] [place] [address]IAWWHNIECY BOYCE MD ALBUMIN (test code = 3.2 g/dL 3.8-4.8 L 69953376) BWOUY-8-HADQKHQUY 0.4 g/dL 0.2-0.3 H (test code = 95463153) RTULJ-3-DNTOKLYPO 0.8 g/dL 0.5-0.9 (test code = 41983946) BETA 1 GLOBULIN (test 0.5 g/dL 0.4-0.6 code = 57690251) BETA 2 GLOBULIN (test 0.2 g/dL 0.2-0.5 code = 35739649) GAMMA GLOBULINS (test 0.6 g/dL 0.8-1.7 L code = 40675852) INTERPRETATION (test Pattern consistent with code = 29969712) an acute ph ase reactionConsist ent with hypogammaglobul inemia. Serum free ligh tchains or urine immuno fixation should be consi dered ifplasma cell d yscrasias are a possible clinicaldiagnos is.TEST PERFORMED AT:[facility] [id number] [facility] [place] [address]URXLRNIECY BOYCE MD [id number] 06:13:00 Test Item Value Reference Range Interpretation Comments MAGNESIUM (test code = 48A) 1.7 mg/dL 1.8-2.4 L COMPREHENSIVE METABOLIC [id number] 06:13:00 Test Item Value Reference Range Interpretation [...] (test code = RBCMOR) NORMAL COMPREHENSIVE METABOLIC [id number] 05:30:00 Test Item Value Reference Range Interpretation [...] (test code = RBCMOR) NORMAL URINALYSIS WITH [id number] 06:44:00 Test Item Value Reference Range Interpretation [...] code = USPERM) /HPF NONE COMPREHENSIVE METABOLIC [id number] 05:24:00 Test Item Value Reference Range Interpretation [...] = RBCMOR) NORMAL U/S KIDNEY (RENAL)2019-06-06 23:20:42LOCATION: [id number]: 63-year-old female who presents with acute nontraumatic [...] jet was observed onthe color flow study.TROPONIN [id number] 07:14:00 Test Item Value Reference Range Interpretation Comments TROPONIN I (test code = A84) <0.015 ng/mL 0.000-0.045 COMPREHENSIVE METABOLIC [id number] 05:28:00 Test Item Value Reference Range Interpretation [...] (test code = RBCMOR) NORMAL COMPREHENSIVE METABOLIC [id number] 04:58:00 Test Item Value Reference Range Interpretation [...] (test code = MDIFF) NO NO CARDIAC [id number] 23:10:00 Test Item Value Reference Range Interpretation Comments TROPONIN I (test code = A84) <0.015 ng/mL 0.000-0.045 U/S VENOUS DOPPLER BALDO LOW [id number] 22:23:14LOCATION: [id number]: 63-year-old female who presents with bilateral leg swelling.COMMENT: [facility] [...] thrombosis in either of thispatient's legs. CARDIAC [id number] 16:50:00 Test Item Value Reference Range Interpretation Comments TROPONIN I (test code = A84) <0.015 ng/mL 0.000-0.045 BRAIN NATRIURETIC [id number] 14:39:00 Test Item Value Reference Range Interpretation Comments proBNP (test code = PBNP) 1337 pg/mL 0-125 H THYROID PANEL/SCREEN (TSH)2019-06-04 12:05:00 Test Item Value Reference Range Interpretation Comments TSH (test code = A57) 0.989 uIU/mL 0.358-3.740 [id number] 12:02:00 Test Item Value Reference Range Interpretation Comments CPK (test code = 32A) 98 IU/L 26-192 [facility] AND [id number] 12:02:00 Test Item Value Reference Range Interpretation Comments AMYLASE (test code = 10A) 19 U/L 28-100 L LIPASE (test code = 60A) 67 IU/L 73-393 L COMPREHENSIVE METABOLIC [id number] 12:02:00 Test Item Value Reference Range Interpretation [...] code = 31A) 41 IU/L <=78 TROPONIN [id number] 11:57:00 Test Item Value Reference Range Interpretation Comments TROPONIN I (test code = A84) <0.015 ng/mL 0.000-0.045 XR CHEST 1 VIEW [id number] 11:55:22EXAM: XR CHEST 1 VIEW PORTABLE.LOCATION: D4.HISTORY: [id number]: Chest pain.COMPARISON: Radiograph dated 05/12/2019.TECHNIQUE: Single AP view of the chest was obtained. FINDINGS:The heart is enlarged in size. Small left pleural effusion and left basilaropacities are present. There is elevation of the right hemidiaphragm. No acuteosseous abnormality is identified.IMPRESSION:Small left pleural effusion with left basilar opacities, which may representatelectasis or infiltrates.Cardiomegaly. PRO TIME AND [id number] 11:43:00 Test Item Value Reference Range Interpretation [...] (test code = RBCMOR) NORMAL CBC WITH [id number] 15:29:00 Test Item Value Reference Range Interpretation [...] NORMAL (1.5-3 um) NORMAL PLTMOR) BASIC METABOLIC [id number] 15:26:00 Test Item Value Reference Range Interpretation [...] code = 09D) 9.2 mg/dL 8.3-9.5 CARDIAC [id number] 06:04:00 Test Item Value Reference Range Interpretation Comments TROPONIN I (test code = A84) <0.015 ng/mL 0.000-0.045 BASIC METABOLIC [id number] 05:52:00 Test Item Value Reference Range Interpretation [...] MORPH (test code = RBCMOR) NORMAL CARDIAC [id number] 23:08:00 Test Item Value Reference Range Interpretation Comments TROPONIN I (test code = A84) <0.015 ng/mL 0.000-0.045 CT DISSECTION [id number] 19:26:35Exam: CT thorax PE protocol.Location: H 12History: [id number]: Chest painTechnique: Enhanced spiral slices were taken [...] code = A57) 0.706 uIU/mL 0.358-3.740 LIVER [id number] 18:28:00 Test Item Value Reference Range Interpretation [...] = 31A) 21 IU/L <=78 BRAIN NATRIURETIC [id number] 18:19:00 Test Item Value Reference Range Interpretation Comments proBNP (test code = PBNP) 518 pg/mL 0-125 H [id number] 18:15:00 Test Item Value Reference Range Interpretation Comments MAGNESIUM (test code = 48A) 1.9 mg/dL 1.8-2.4 [id number] 17:40:00 Test Item Value Reference Range Interpretation Comments D-DIMER (test code = <200 ng/mL D-DU 0-234 DDI) D-DIMER COMMENT (test *Level to rule out code = DDCOM) DVT or PE: <235 ng/mL D-DU* CARDIAC [id number] 17:31:00 Test Item Value Reference Range Interpretation Comments TROPONIN I (test code = A84) <0.015 ng/mL 0.000-0.045 BASIC METABOLIC [id number] 17:27:00 Test Item Value Reference Range Interpretation [...] LMW Heparin. Order Code is ANTI-XA PROTHROMBIN [id number] 17:26:00 Test Item Value Reference Range Interpretation Comments PT (test code = 12.0 s 9.8-13.6 TT) INR (test code = 1.1 INR) INRH (test code = SUGGESTED INRH) THERAPEUTIC RANGE FOR INR: 2.5 - 3.5 For Patients with Prosthetic Valves or Patients with recurrent Thromboembolic Events 2.0 - 3.0 For Most Other Applications XR CHEST 1 VIEW [id number] 17:04:28Portable AP chest, 1 viewLocation Code: [id number] HISTORY: Chest painCOMPARISON: NoneCOMMENT: Mild atelectasis is present within the lung bases. The costophrenic angles aresharp. The cardiomediastinalsilhouette is unremarkable. The bones are intact.IMPRESSION: Mild bibasilar atelectasis. Otherwise, no acute abnormalityCHEM [id number] 16:51:00 Test Item Value Reference Range Interpretation Comments Creatinine Lvl (test code = Creatinine 1.15 0.50-1.40 Lvl) [facility]2017-01-24 16:51:00 Test Item Value Reference Range Interpretation Comments BUN (test code = BUN) 16 -22 [facility]2017-01-24 16:51:00 Test Item Value Reference Range Interpretation Comments Chloride Lvl (test code = Chloride Lvl) 109 95-109 [facility]2017-01-24 16:51:00 Test Item Value Reference Range Interpretation Comments Potassium Lvl (test code = Potassium 4.3 3.5-5.1 Lvl) [facility]2017-01-24 16:51:00 Test Item Value Reference Range Interpretation Comments Sodium Lvl (test code = Sodium Lvl) 144 135-145 [facility]2017-01-24 16:51:00 Test Item Value Reference Range Interpretation Comments CO2 (test code = CO2) 28 - [facility]2017-01-24 16:51:00 Test Item Value Reference Range Interpretation Comments Calcium Lvl (test code = Calcium Lvl) 8.4 8.5-10.5 [facility]2017-01-24 16:51:00 Test Item Value Reference Range Interpretation Comments AGAP (test code = AGAP) 11.3 10.0-20.0 [facility]2017-01-24 16:51:00 Test Item Value Reference Range Interpretation Comments Glucose Lvl (test code = Glucose Lvl) 109 70-99 [facility]2017-01-24 16:51:00 Test Item Value Reference Range Interpretation Comments eGFR (test code = eGFR) 52 [facility]
[2021-11-02 20:59] LABS: Absolute Lymphocytes (CBC) 1.8 K/uL (0.7-4.9); Hematocrit 26.5 % (36.0-45.0); Lymphocytes % 18.1 % (15.3-44.8); MPV 7.9 fL (7.6-11.3)
[2021-11-02 21:04] LABS: Protime INR 1.21
--- NOTE | 2021-11-02 21:07 | RAD REPORT ---
EXAM DESCRIPTION: RAD - Chest Single View - 11/02/2021 8:41 pm CLINICAL HISTORY: CHEST PAIN COMPARISON: Chest Single View dated 10/26/2021; Stone Protocol dated 10/26/2021 FINDINGS: Lines: Left IJ approach dialysis catheter Lungs: Thickening of the right minor fissure. Mildly elevated hemidiaphragms and likely atelectasis. Pleural: Small right effusion. Cardiac: Cardiomegaly. Bones: No acute fractures. Other: IMPRESSION: Small right effusion and likely underlying atelectasis. No other acute process seen.
[2021-11-02 21:22] LABS: Urine Appearance TURBID (Clear); Urine Blood 3+ (Negative); Urine Color Red (Yellow); Urine Glucose NEGATIVE (Negative); Urine Protein 2+ (Negative)
[2021-11-02 21:30] LABS: Urine Bilirubin NEGATIVE (Negative)
[2021-11-02 21:59] LABS: Albumin 3.2 g/dL (3.4-5.0); Bilirubin Direct 0.3 mg/dL (0-0.2); Bilirubin Total 0.9 mg/dL (0.2-1.0); Magnesium 2.4 mg/dL (1.8-2.4); Potassium 4.7 mmol/L (3.5-5.1); Protein, Total 8.2 g/dL (6.4-8.2)
[2021-11-02 22:14] LABS: Urine Bacteria >50 /HPF (<20); Urine Urothelial Cells <5 /HPF (NONE SEEN)
--- NOTE | 2021-11-02 22:38 | EDPHYS ---
Physician Documentation [facility] Name: Kassie De Jesus Age: 66 yrs Sex: Female : 1955 Arrival Date: 11/02/2021 Time: 17:05 Bed 18 Private MD: ED Physician Paul Lantigua HPI: 11/02 20:37 This 66 yrs old Female presents to ER via Wheelchair with complaints of Palpitations, sp3 rib pain. 20:37 6-year-old female with a history of hypertension, stage IV kidney disease on end-stage sp3 renal disease dialysis, hyper lipidemia who presents to the ED for right rib pain and sent by her PCP for possible fluid overload/congestive heart failure. Patient initially was seen in her PCPs office for this and she states that he "listen to her and then stated that she may be in heart failure" and so sent her to the ED for further evaluation. She states that she has right rib pain secondary to leaning on a chair in an abnormal fashion. No direct trauma or fall reported. No back pain, substernal chest pain, shortness of breath, cough, URI symptoms, headache, neck pain, low back pain, abdominal pain, nausea, vomiting, diarrhea, syncope, near syncope, neuro symptoms, rash, known sick contacts, any other ROS at this time.. Historical: - Allergies: 17:31 cefepime; jl7 17:31 PENICILLINS; jl7 17:31 QUINOLONES; jl7 - Home Meds: 17:31 allopurinol 100 mg Oral tab 1 tab once daily [Active]; atorvastatin 10 mg Oral tab 1 jl7 tab once daily [Active]; bumetanide 2 mg Oral tab 1 tab once daily [Active]; carvedilol 3.125 mg Oral tab 1 tab 2 times per day [Active]; Colace 100 mg Oral cap 1 cap once daily [Active]; digoxin 125 mcg (0.125 mg) Oral tab 1 tab once daily [Active]; Eliquis 5 mg Oral tab 1 tab 2 times per day [Active]; gabapentin 300 mg Oral cap 1 cap BID [Active]; midodrine 5 mg Oral tab 2 tabs 3 times per day [Active]; Osteo Bi-Flex Triple Strength 750 mg-644 mg- 30 mg-1 mg Oral tab [Active]; sevelamer carbonate 800 mg Oral tab 2 tabs 3 times per day [Active]; tramadol 100 mg Oral Tb24 1 tab once daily [Active]; - PMHx: 17:31 Dialysis; High Cholesterol; Hypertensive disorder; stage 4 kidney failure; Atrial jl7 fibrillation; - Immunization history:: Client reports having NOT received the Covid vaccine. - Social history:: Smoking status: Patient denies any tobacco usage or history of. ROS: 20:39 Constitutional: Negative for fever, chills, and weight loss, Eyes: Negative for injury, sp3 pain, redness, and discharge, ENT: Negative for injury, pain, and discharge, Neck: Negative for injury, pain, and swelling, Cardiovascular: Negative for chest pain, palpitations, and edema, Abdomen/GI: Negative for abdominal pain, nausea, vomiting, diarrhea, and constipation, Back: Negative for injury and pain, Skin: Negative for injury, rash, and discoloration, Neuro: Negative for headache, weakness, numbness, tingling, and seizure, Psych: Negative for depression, anxiety, suicide ideation, homicidal ideation, and hallucinations, Allergy/Immunology: Negative for hives, rash, and allergies, Endocrine: Negative for neck swelling, polydipsia, polyuria, polyphagia, and marked weight changes. 20:39 All other systems are negative. Exam: 20:40 Constitutional: This is a well developed, well nourished patient who is awake, alert, sp3 and in no acute distress. Head/Face: Normocephalic, atraumatic. Eyes: Pupils equal round and reactive to light, extra-ocular motions intact. Lids and lashes normal. Conjunctiva and sclera are non-icteric and not injected. Cornea within normal limits. Periorbital areas with no swelling, redness, or edema. ENT: Nares patent. No nasal discharge, no septal abnormalities noted. External auditory canals are clear. Oropharynx with no redness, swelling, or masses, exudates, or evidence of obstruction, uvula midline. Mucous membranes moist. Neck: Trachea midline, no thyromegaly or masses palpated, and no cervical lymphadenopathy. Supple, full range of motion without nuchal rigidity, or vertebral point tenderness. No Meningismus. Cardiovascular: Regular rate and rhythm with a normal S1 and S2. No gallops, murmurs, or rubs. Normal PMI, no JVD. No pulse deficits. Abdomen/GI: Soft, non-tender, with normal bowel sounds. No distension or tympany. No guarding or rebound. No evidence of tenderness throughout. Skin: Warm, dry with normal turgor. Normal color with no rashes, no lesions, and no evidence of cellulitis. MS/ Extremity: Pulses equal, no cyanosis. Neurovascular intact. Full, normal range of motion. Neuro: Awake and alert, GCS 15, oriented to person, place, time, and situation. Cranial nerves II-XII grossly intact. Motor strength 5/5 in all extremities. Sensory grossly intact. Cerebellar exam normal. Normal gait. 20:40 Chest/axilla: Patient has mild point chest pain on 2 ribs on the right side. No subcu emphysema or other rib crepitus or other abnormality is noted.. 20:40 Respiratory: No respiratory distress. Mild rales noted bilaterally. Bilateral lower extremity swelling is slightly worse than baseline per patient.. 21:00 ECG was reviewed by the Attending Physician. EKG demonstrates atrial fibrillation at 74 sp3 bpm with normal QRS, normal axis, with no ST/T changes indicative of ischemia. Vital Signs: 17:25 BP 104 / 49; Pulse 81; Resp 20; Temp 97.9; Pulse Ox 100% on 2 lpm NC; Weight 118.84 kg; jl7 Height 5 ft. 7 in. (170.18 cm); Pain 5/10; 17:25 Body Mass Index 41.03 (118.84 kg, 170.18 cm) jl7 MDM: 20:15 Patient medically screened. sp3 20:43 Data reviewed: vital signs, nurses notes. ED course: Patient was at dialysis yesterday sp3 and is due for dialysis tomorrow. I do not believe patient is heavily volume overloaded at this time. Will obtain chest x-ray, BNP labs as well as routine labs. I am not suspicious for acute coronary syndrome, vascular compromise, infection, sepsis, or any other critical findings at this time. Will discharge patient home if work-up is negative even if patient is in mild failure secondary to her getting dialysis tomorrow.. 22:35 ED course: Had extensive discussion with patient who really wants to go home. sp3 Laboratory work does not show any significant abnormalities other than the BNP level. Respiratory status clinically is not severe. Patient has mild shortness of breath but she states that that is her baseline at her best day. She has dialysis tomorrow and does not wish to be in the hospital today. Her urine also demonstrated continued infection. Culture has been ordered. We will place her on nitrofurantoin and have her follow-up with her PCP on this. I also told patient that she may return at any time if her breathing gets worse and she wants to be admitted to the hospital for which her and her family member in the room acknowledged and were appreciative. Will discharge home at this time.. 11/02 20:16 Order name: Basic Metabolic Panel; Complete Time: 22:23 3 11/02 20:16 Order name: CBC with Diff; Complete Time: 21:50 [facility] 11/02 20:16 Order name: LFT's; Complete Time: 22:23 3 11/02 20:16 Order name: Magnesium; Complete Time: 22:23 3 11/02 20:16 Order name: NT PRO-BNP; Complete Time: 22:23 [facility] 11/02 20:16 Order name: PT-INR; Complete Time: 21:50 3 11/02 20:16 Order name: Troponin HS; Complete Time: 22:23 3 11/02 20:16 Order name: XRAY Chest (1 view); Complete Time: 21:50 3 11/02 21:01 Order name: UA [facility] 11/02 21:01 Order name: UA MICROSCOPIC [facility] 11/02 21:14 Order name: Urinalysis W/Microscopic; Complete Time: 22:23 [facility] 11/02 22:16 Order name: Urine Culture [facility] 11/02 20:16 Order name: EKG; Complete Time: 20:16 [facility] 11/02 20:16 Order name: Cardiac monitoring [facility] 11/02 20:16 Order name: EKG - Nurse/Tech [facility] 11/02 20:16 Order name: IV Saline Lock [facility] 11/02 20:16 Order name: Labs collected and sent [facility] 11/02 20:16 Order name: O2 Per Protocol [facility] 11/02 20:16 Order name: O2 Sat Monitoring 3 Administered Medications: 23:00 Drug: Zofran (Ondansetron) 8 mg Route: IVP; Site: right antecubital; kd3 Disposition Summary: 11/02/21 22:37 Discharge Ordered Location: Home sp3 Condition: Stable sp3 Diagnosis - Unspecified systolic (congestive) heart failure sp3 - UTI/ Urinary tract infection, site not specified sp3 Discharge Instructions: - Discharge Summary Sheet sp3 - Urinary Tract Infection, Adult sp3 - Heart Failure Exacerbation sp3 Forms: - Medication Reconciliation Form sp3 - Thank You Letter sp3 - Antibiotic Education sp3 - Prescription Opioid Use sp3 Prescriptions: - Macrobid 100 mg Oral Capsule - take 1 capsule by ORAL route every 12 hours for 10 days; 20 capsule; Refills: sp3 0, Product Selection Permitted Signatures: Dispatcher [employer] EDMS Elvis Hanna RN RN jl7 Paul Lantigua MD MD sp3 Kirsten Bob RN RN kd3 Corrections: (The following items were deleted from the chart) 21:14 21:02 Urinalysis ordered. EDMS EDMS 21:14 21:02 Urine Microscopic Only ordered. EDMS EDMS
--- NOTE | 2021-11-02 22:38 | ER ---
Nurse's Notes [facility] Name: Kassie De Jesus Age: 66 yrs Sex: Female : 1955 Arrival Date: 11/02/2021 Time: 17:05 Bed 18 Private MD: Diagnosis: Unspecified systolic (congestive) heart failure;UTI/ Urinary tract infection, site not specified Presentation: 11/02 17:25 Chief complaint: Patient states: "I went to see Dr. Eagle because my right ribs are jl7 hurting from leaning over a chair. Dr. Eagle listened to my heart with his stethoscope and said he thinks I'm in heart failure so he sent me here." Pt denies palpitations, pt denies shortness of breath, pt denies chest pain, reports back pain for the last few days, rib pain for 3 days, and nausea x 2 weeks. Coronavirus screen: At this time, the client does not indicate any symptoms associated with coronavirus-19. Ebola Screen: No symptoms or risks identified at this time. Initial Sepsis Screen: Does the patient meet any 2 criteria? No. Patient's initial sepsis screen is negative. Does the patient have a suspected source of infection? No. Patient's initial sepsis screen is negative. Risk Assessment: Do you want to hurt yourself or someone else? Patient reports no desire to harm self or others. Onset of symptoms was October 31, 2021. 17:25 Method Of Arrival: Wheelchair jl7 17:25 Acuity: LENI 3 jl7 Triage Assessment: 17:31 General: Appears in no apparent distress. uncomfortable, Behavior is calm, cooperative, jl7 appropriate for age. Pain: Complains of pain in right ribs Pain currently is 5 out of 10 on a pain scale. Cardiovascular: Patient's skin is warm and dry. Pulses are palpable in right radial artery and left radial artery are 3+ in right radial artery and left radial artery Rhythm is regular. Respiratory: Airway is patent Respiratory effort is even, unlabored, Respiratory pattern is regular, symmetrical. Derm: Skin is pink, warm \\T\\ dry. Historical: - Allergies: 17:31 cefepime; jl7 17:31 PENICILLINS; jl7 17:31 QUINOLONES; jl7 - Home Meds: 17:31 allopurinol 100 mg Oral tab 1 tab once daily [Active]; atorvastatin 10 mg Oral tab 1 jl7 tab once daily [Active]; bumetanide 2 mg Oral tab 1 tab once daily [Active]; carvedilol 3.125 mg Oral tab 1 tab 2 times per day [Active]; Colace 100 mg Oral cap 1 cap once daily [Active]; digoxin 125 mcg (0.125 mg) Oral tab 1 tab once daily [Active]; Eliquis 5 mg Oral tab 1 tab 2 times per day [Active]; gabapentin 300 mg Oral cap 1 cap BID [Active]; midodrine 5 mg Oral tab 2 tabs 3 times per day [Active]; Osteo Bi-Flex Triple Strength 750 mg-644 mg- 30 mg-1 mg Oral tab [Active]; sevelamer carbonate 800 mg Oral tab 2 tabs 3 times per day [Active]; tramadol 100 mg Oral Tb24 1 tab once daily [Active]; - PMHx: 17:31 Dialysis; High Cholesterol; Hypertensive disorder; stage 4 kidney failure; Atrial jl7 fibrillation; - Immunization history:: Client reports having NOT received the Covid vaccine. - Social history:: Smoking status: Patient denies any tobacco usage or history of. Screenin:00 Abuse screen: Denies threats or abuse. Denies injuries from another. Nutritional kd3 screening: No deficits noted. Tuberculosis screening: No symptoms or risk factors identified. Fall Risk IV access (20 points). Vital Signs: 17:25 BP 104 / 49; Pulse 81; Resp 20; Temp 97.9; Pulse Ox 100% on 2 lpm NC; Weight 118.84 kg; jl7 Height 5 ft. 7 in. (170.18 cm); Pain 5/10; 17:25 Body Mass Index 41.03 (118.84 kg, 170.18 cm) jl7 ED Course: 17:05 Patient arrived in ED. am2 17:31 Triage completed. jl7 17:31 Arm band placed on right wrist. jl7 20:01 Kirsten Bob, RN is Primary Nurse. kd3 20:05 Paul Lantigua MD is Attending Physician. sp3 20:41 XRAY Chest (1 view) In Process Unspecified. EDMS 23:00 Patient has correct armband on for positive identification. Placed in gown. Bed in low kd3 position. Call light in reach. Side rails up X 1. 23:00 No provider procedures requiring assistance completed. IV discontinued. kd3 Administered Medications: 23:00 Drug: Zofran (Ondansetron) 8 mg Route: IVP; Site: right antecubital; kd3 Outcome: 22:37 Discharge ordered by . sp3 23:00 Discharged to home ambulatory. kd3 23:00 Condition: stable 23:00 Discharge instructions given to patient. 23:10 Patient left the ED. kd3 Addendum: 11/06/2021 07:31 Addendum: Culture Results: Positive urine culture. No further action required. Bacteria e b sensitive to prescribed antibiotic. Signatures: Dispatcher [employer] Elvis Martínez, RN RN jl7 Chelsey Longo Elizabeth eb Patel, Setul, MD MD sp3 Kirsten Bob RN RN kd3
[2021-11-02] MEDS ORDERED: ONDANSETRON 4 MG/2 ML VIAL ONE (22:50)
[2021-11-02 23:30] VITALS: BP 104/49; TEMP 97.9; O2SAT 100
== END 2021-11-02 23:10 | disposition home or self-care (01) ==
LOC: ER 17:04
DX: I50.20 Unspecified systolic (congestive) heart failure (principal); N39.0 Urinary tract infection, site not specified; I12.9 Hypertensive chronic kidney disease with stage 1 through stage 4 chronic kidney disease, or unspecified chronic kidney disease; N18.4 Chronic kidney disease, stage 4 (severe); I48.91 Unspecified atrial fibrillation; Z79.01 Long term (current) use of anticoagulants; Z99.2 Dependence on renal dialysis
CPT/HCPCS: 93005; 87088; 85025; 81001; 87086; 80048; 36415; 83735; 85610; 80076; 87077; 87186; 84484; 83880; 71045; 96374; 99283; J2405

== ENCOUNTER 2021-12-14 12:31 | Emergency (ER) | payer OTHER, BC ==
--- OUTSIDE RECORDS SUMMARY | 2021-12-14 12:37 | XMS REPORT | Continuity of Care Document ---
:1955 Author Organization [facility] t Address [address] [place] [address] Care Team Providers Name Role Phone AHMED [...] l NATALYA 00:00: Denis 00 Active 02/14/2021 [place] COLON Diagnosis Active 2016-11-17 Mem oria CANCER 11-14 05:49:00 l SCREENING- COLON 00:00: Karen nn Z12.11 CANCER 00 SCREENING- Z12.11 Active 11/14/2016 [place] R92.1 - Diagnosis Active 2016-04-16 Tx moria MAMMOGRAPH 01-31 15:55:00 l IC R92.1 - 00:01: Denis CALCIFCN MAMMOGRAPH 00 FOUND ON IC CALCIFCN FOUND ON Active 02/01/2016 OPID [place] Z12.31 - Diagnosis Active 2015-11-30 M emoria ENCNTR - 07:08:00 l SCREEN Z12.31 - 00:01: Vicente davis MAMMOGRAM ENCNTR 00 FOR MA SCREEN MAMMOGRAM FOR MA Active 11/12/2015 OPID [place] RT WRIST Diagnosis Active 2016-12-28 M emoria DISTAL 1- 02:03:00 l RADIUS RT WRIST 09:00: Vicente davis CLSD FX DISTAL 00 RADIUS CLSD FX Active 10/22/2015 [facility] Abnormal Problem Active 2021-09-15 Mem oria glucose 7-02 22:17:41 l level Abnormal 00:00: Vicente davis (finding) glucose 00 level (finding) Active 04/22/2015 Problem 09/15/2021 Data migrated from [employer] on 04/28/15. [facility], ANTHONY Soto, OPID [place], [facility], [place] Lymphedema Problem Active 2019-11-17 M emoria (disorder) 2- 00:38:51 l 00:00: Denis Lymphedema 00 (disorder) Active 11/25/2013 Problem 11/17/2019 Data migrated from [employer] on 03/20/15. [facility], ANTHONY Soto, OPID [place], [facility], [place] Obstructiv Problem Active 2021-09-15 M emoria e sleep 2-04 22:17:41 l apnea 00:00: [place] syndrome Obstructiv 00 (disorder) e sleep apnea syndrome (disorder) Active 11/25/2013 Problem 09/15/2021 Data migrated from [employer] on 03/20/15. [facility], ANTHONY Stoo, OPID [place], [facility], [place] Hypothyroi Problem Active 2019-08-09 M emoria dism 02-12 21:25:36 l (disorder) 00:00: Vicente n Hypothyroi 00 dism (disorder) Active 02/12/2013 Problem 08/09/2019 Data migrated from [employer] on 03/20/15. [facility], OPID Brittany, OPID [place], [facility], [place] Depressive Problem Active 2021-09-15 M emoria disorder 4-24 22:17:41 l (disorder) 00:00: Vicente n Depressive 00 disorder (disorder) Active 02/12/2013 Problem 09/15/2021 Data migrated from [employer] on 03/20/15. [facility], OPID Brittany, OPID [place], [facility], [place] Obesity Problem Active 2016-05-15 Turner arnoldo (disorder) 8-20 00:23:22 l Obesity 00:00: [place] (disorder) 00 Active 06/10/2012 Problem 05/15/2016 Data migrated from [employer] on 03/20/15. OPID Brittany, OPID [place], [facility] Cobalamin Problem Active 2021-09-15 Me moria deficiency 7-11 22:17:41 l (disorder) 00:00: Vicente n Cobalamin 00 deficiency (disorder) Active 05/01/2012 Problem 09/15/2021 Data migrated from [employer] on 03/20/15. [facility], OPID Brittany, OPID [place], [facility], [place] Hypertensi Problem Active 2016-05-15 M emoria ve episode 7-10 00:23:22 l (disorder) 00:00: Vicente n Hypertensi 00 ve episode (disorder) Active 04/30/2012 Problem 05/15/2016 Data migrated from [employer] on 03/20/15. MH OPID Brittany, OPID [place], [facility] Pain in Problem 2016-01-01 Turner arnoldo wrist 05:02:18 l (finding) Pain in Herm connie wrist (finding) Problem 01/01/2016 [facility] Calcificat Problem Resolve 2021-09-15 Memoria ion of d 22:17:41 l breast Denis (finding) Calcificat ion of breast (finding) Resolved Problem 09/15/2021 [facility], OPID Brittany, OPID [place], [facility], [place] Dysuria Problem Resolve 2021-09-15 Mem oria (finding) d 22:17:41 l Dysuria [place] (finding) Resolved Problem 09/15/2021 Medical Group, OPID [place], [place] Acute Problem Active 2020-02-08 Memor ia urinary 22:36:35 l tract Acute [place] infection urinary (disorder) tract infection (disorder) Active Problem 02/08/2020 Medical Group Chronic Problem Active 2020-02-08 Turner arnoldo renal 22:36:35 l impairment Chronic [place] (disorder) renal impairment (disorder) Active Problem 02/08/2020 Medical Group, OPIEverette Soto, OPID [place], [facility], [place] Diabetes Problem Active 2020-06-24 Mem oria mellitus 23:27:54 l (disorder) Diabetes He rmann mellitus (disorder) Active Problem 06/24/2020 Medical Group, OPID [place] Urinalysis Problem Active 2021-09-15 M emoria = abnormal 22:17:41 l (finding) Denis Urinalysis = abnormal (finding) Active Problem 09/15/2021 [facility], OPID [place], [place] Atrial Problem Active 2021-09-15 Memor ia fibrillati 22:17:41 l on Atrial [place] (disorder) fibrillati on (disorder) Active Problem 09/15/2021 Medical Group, OPID [place], [place] Benign Problem Active 2021-09-15 Memor ia essential 22:17:41 l hypertensi Benign Herm connie on essential (disorder) hypertensi on (disorder) Active Problem 09/15/2021 Medical Group, OPID Brittany, OPID [place], [facility], [place] Cardiorena Problem Active 2021-09-15 M emoria l syndrome 22:17:41 l (disorder) Vicente n Cardiorena l syndrome (disorder) Active Problem 09/15/2021 Medical Group, OPID [place], [place] Chronic Problem Active 2021-09-15 Turner arnoldo kidney 22:17:41 l disease Chronic Vicente n (disorder) kidney disease (disorder) Active Problem 09/15/2021 Medical Group, OPID [place], [place] Chronic Problem Active 2021-09-15 Turner arnoldo kidney 22:17:41 l disease Chronic Vicente n stage 3 kidney (disorder) disease stage 3 (disorder) Active Problem 09/15/2021 [facility] Group, OPID [place], [place] Chronic Problem Active 2021-09-15 Turner arnoldo pain 22:17:41 l (finding) Chronic Herm connie pain (finding) Active Problem 09/15/2021 [facility], OPID [place], [place] Dependence Problem Active 2021-09-15 M emoria on 22:17:41 l supplement Vicente n al oxygen Dependence (finding) on supplement al oxygen (finding) Active Problem 09/15/2021 [facility], [place] Edema of Problem Active 2021-09-15 Mem oria lower 22:17:41 l extremity Edema of [place] (finding) lower extremity (finding) Active Problem 09/15/2021 [facility], OPID [place], [place] Hyperlipid Problem Active 2021-09-15 M emoria emia 22:17:41 l (disorder) Vicente n Hyperlipid emia (disorder) Active Problem 09/15/2021 Data migrated from [facility] on 03/20/15. Medical Group, ANTHONY Soto, OPID [place],[facility], [place] Hyperparat Problem Active 2021-09-15 M emoria hyroidism 22:17:41 l (disorder) Vicente n Hyperparat hyroidism (disorder) Active Problem 09/15/2021 Medical Group, OPID [place], [place] Hypertensi Problem Active 2021-09-15 M emoria ve 22:17:41 l disorder, Denis systemic Hypertensi arterial ve (disorder) disorder, systemic arterial (disorder) Active Problem 09/15/2021 Medical Group,[facility] [place], OPID [place], [place] Hypertensi Problem Active 2021-09-15 M emoria ve renal 22:17:41 l disease Denis (disorder) Hypertensi ve renal disease (disorder) Active Problem 09/15/2021 Medical Group, OPID [place], [place] Hyperurice Problem Active 2021-09-15 M emoria bryant 22:17:41 l (disorder) Vicente n Hyperurice bryant (disorder) Active Problem 09/15/2021 Data migrated from [facility] on 03/20/15. Medical Group, OPID Brittany, OPID [place], [facility], [place] Lymphedema Problem Active 2021-09-15 M emoria of lower 22:17:41 l extremity Denis (disorder) Lymphedema of lower extremity (disorder) Active Problem 09/15/2021 [facility] Group, OPID [place], [place] Malignant Problem Active 2021-09-15 Me moria neoplasm 22:17:41 l of skin of Vicente n upper limb Malignant (disorder) neoplasm of skin of upper limb (disorder) Active Problem 09/15/2021 Medical Group, OPID [place], [place] Morbid Problem Active 2021-09-15 Memor ia obesity 22:17:41 l (disorder) Morbid Herm connie obesity (disorder) Active Problem 09/15/2021 [facility] Group, OPID Brittany, OPID [place], [facility], [place] Post-disch Problem Active 2021-09-15 M emoria arge 22:17:41 l follow-up Denis (finding) Post-disch arge follow-up (finding) Active Problem 09/15/2021 [facility], [place] Prerenal Problem Active 2021-09-15 Mem oria azotemia 22:17:41 l (disorder) Prerenal He rmann azotemia (disorder) Active Problem 09/15/2021 Medical Group, OPID [place], [place] Proteinuri Problem Active 2021-09-15 M emoria a 22:17:41 l (finding) Denis Proteinuri a (finding) Active Problem 09/15/2021 [facility] Group, OPID [place], [place] Stasis Problem Active 2021-09-15 Memor ia ulcer 22:17:41 l (disorder) Stasis Herm connie ulcer (disorder) Active Problem 09/15/2021 Medical Group, OPID [place], [place] Swelling - Problem Active 2021-09-15 M emoria edema - 22:17:41 l symptom Swelling Karen nn (finding) - edema - symptom (finding) Active Problem 09/15/2021 [facility] Group, OPID [place], [place] Swollen Problem Active 2021-09-15 Turner arnoldo ankle 22:17:41 l (finding) Swollen Herm connie ankle (finding) Active Problem 09/15/2021 [facility], OPID [place], [place] Urinary Problem Resolve 2021-09-15 Mem oria tract d 22:17:41 l infectious Urinary [place] disease tract (disorder) infectious disease (disorder) Resolved Problem 09/15/2021 [facility] Group, OPID [place], [place] Venous Problem Active 2021-09-15 Memor ia ulcer of 22:17:41 l leg Venous Denis (disorder) ulcer of leg (disorder) Active Problem 09/15/2021 [facility], OPID [place], [place] Weight Problem Active 2021-09-15 Memor ia gain 22:17:41 l finding Weight [place] (finding) gain finding (finding) Active Problem 09/15/2021 [facility], OPID [place], [place] Acute Problem Active 2016-05-15 Memor ia renal 00:23:22 l failure Acute Denis syndrome renal (disorder) failure syndrome (disorder) Active Problem 05/15/2016 Data migrated from [facility] on 03/20/15. OPID Brittany, OPID [place],[facility] [place] [facility] Kidney Problem Active 2016-11-20 Memor ia disease 03:07:28 l (disorder) Kidney Herm connie disease (disorder) Active Problem 11/20/2016 [place] Migraine Problem Active 2016-11-20 Mem oria (disorder) 03:07:28 l Migraine Vicente n (disorder) Active Problem 11/20/2016 [facility] [place], [place] RIGHT Diagnosis Active 2016-03-09 Mem oria WRIST 15:06:00 l DISTAL RIGHT [place] RADIUS WRIST CLSD FX DISTAL RADIUS CLSD FX Active [facility] DISTAL Diagnosis Active 2016-04-21 Mem oria RADIUS 09:46:00 l CLSD FX DISTAL [place] RADIUS CLSD FX Active [facility] Cholestero Problem 2016-01-01 M emoria l 05:02:18 l (substance Vicente n ) Cholestero l (substance ) Problem 01/01/2016 [facility] Sleep Problem 2016-01-01 Memor ia apnea 05:02:18 l (finding) Sleep Vicente n apnea (finding) Problem 01/01/2016 2does not use cpap [facility] Acute Problem Resolve 2016-05-15 2016-05-15 Memoria otitis d 02-12 00:23:22 00:23:22 l media Acute 00:00: [place] (disorder) otitis 00 media (disorder) Resolved 02/12/2013 Problem 05/15/2016 Data migrated from [facility] on 05/08/15. OPID Brittany, OPID [place],[facility] History of Past Illness Condition Condition Condition Status Onset Resolution Last Treating Co mments Source Name Details Category Date Date Treatment Clinician Date Dependence Problem 2020-102021-09-12 2021-09-12 Memoria on 11-09 01:29:16 01:29:16 l supplement 21:17: Vicente n al oxygen Dependence 00 on supplement al oxygen 09/09/2021 09/12/2021 Medical Group Other Problem 2020-102021-09-12 2021-09-12 M emoria hyperlipid 11-09 01:29:16 01:29:16 l emia Other 21:16: Denis hyperlipid 00 emia 09/09/2021 09/12/2021 Medical Group Unsteadine Problem 2020-102021-09-12 2021-09-12 Memoria ss on feet 11-09 01:29:16 01:29:16 l 21:13: Denis Unsteadine 00 ss on feet 09/09/2021 09/12/2021 [...] l (current) Other 22:29: Vicente n drug group home 00 therapy (current) drug therapy 09/06/2021 09/08/2021 Medical Group Other Problem 2020-102021-09-08 2021-09-08 M emoria abnormal 11-06 22:39:43 22:39:43 l glucose Other 22:23: Denis abnormal 00 glucose 09/06/2021 09/08/2021 [facility] Allergies, Adverse Reactions, Alerts Allergy Allergy Status Severity Reaction(s) Onset Inactive Treating Comm ents Source Name Type Date Date Clinician penicill penicill Active Memori a ins<sup> ins<sup> l 1</sup> 1</sup> Denis codeine< codeine< Active Memori a sup>1</s sup>1</s l up> up> Denis cefepime cefepime Active Memori a l [place] Levaquin Levaquin Active Memori a l Denis penicill penicill Active Memori a ins<sup> ins<sup> l 2</sup> 2</sup> Denis codeine codeine Active Memoria l [place] penicill penicill Active Memori a ins ins l Denis Social History Social Habit Start Date Stop Date Quantity Comments Source Social History 2019-08-15 2019-08-15 Aylin retana 14:54:48 14:54:48 Smoking Status Start Date Stop Date Source Social History Aylin Barrios Medications Ordered Filled Start Stop Current Ordering Indication Dosage Frequency Signature Comments Components Source Medication Medication Date Date Medication? Clinician (SIG) Name Name Mupirocin 2020-10 Yes 1 appl, Memor ia 0.02 MG/MG - TOP, TID, l Topical 23:21: X 5 day, # Herm connie Ointment 00 22 gm, 0 Refill(s), Pharmacy: [facility] #[id number], 165.1, cm, 09/09/21 14:08:00 [employer]OWS [employer] ADMINISTRATOR, Height, 136.42, kg, 09/09/21 14:08:00 [employer]INDOWS SERVER ADMINISTRATOR, Weight bumetanide 2020-10 Yes 2 mg = [...] twice a l tablet 13:55: day, 0 Denis 00 Refill(s) potassium Yes 1 tablet, Mem oria chloride 20 3-30 once a l mEq oral 13:54: day, 0 [place] tablet, 00 Refill(s) extended release (KCL) allopurinol Yes 1/2 Memori a 300 mg oral 3-30 tablet, l tablet 13:53: once a [place] 00 day, 0 Refill(s) carvedilol Yes 1 [...] twice a l Capsule 13:53: day, 0 [place] 00 Refill(s) metoprolol Yes 1 tablet, Me [...] DAILY, # 66 gm, 1 Refill(s), Pharmacy: [facility] #[id number], 170.18, cm, 12/16/19 14:42:00 [employer]INDOWS SERVER ADMINISTRATOR, Height, 164.318, kg, 12/16/19 14:42:00 WINDOWS SERVER ADMINISTRATOR, Weight Nitrofurant Yes 100 mg = 1 Memoria oin 100 MG 8-09 cap, PO, l Oral 17:57: BID, X 10 [place] Capsule 00 day, # 20 [Macrobid] cap, 0 Refill(s), Pharmacy: [facility] #[id number], 170.18, cm, 12/16/19 14:42:00 WINDOWS SERVER ADMINISTRATOR, Height, 164.318, kg, 12/16/19 14:42:00 WINDOWS SERVER ADMINISTRATOR, Weight lisinopril 2019-0 Yes 2.5 mg = 1 M emoria 2.5 mg oral 6-04 tab, PO, l tablet 23:26: Daily, # [place] 00 30 tab, 2 Refill(s), called to pharmacy calcitriol 2019-0 Yes = 1 cap, Mem oria 0.25 mcg 5-20 PO, Daily, l oral 12:18: # 90 cap, Denis capsule 00 1 Refill(s), Pharmacy: [facility] #[id number] calcitriol 2019-0 Yes = 1 cap, Mem oria 0.25 mcg 4-16 PO, Daily, l oral 16:37: # 90 Denis capsule 47 unknown unit, Pharmacy: [facility] #[id number] Furosemide 2019-0 Yes = 1 tab, Mem oria 40 MG Oral 4-13 PO, Every l Tablet 20:06: Other Day, Karen nn 19 # 45 tab, Pharmacy: [facility] #[id number] prednisolon 2019-0 Yes 1 drop in M emoria e acetate 4-10 each eye, l 10 MG/ML 20:53: once [place] Ophthalmic 00 daily, 0 Suspension Refill(s) bromfenac 2019-0 Yes 1 drop in Mem oria 0.7 MG/ML 4-10 right eye, l Ophthalmic 20:53: once [place] Solution 00 daily, 0 [Prolensa] Refill(s) Furosemide 2019-0 Yes = 1 tab, Mem oria 40 MG Oral 1-23 PO, Every l Tablet 15:13: Other Day, aKren nn 34 # 45 tab, Pharmacy: [facility] #[id number] Mupirocin 2018-10 Yes See Memoria 0.02 MG/MG 2-27 Instructio l Topical 19:11: ns, # 66 Vicente n Ointment 15 gm, APPLY EXTERNALLY TO THE AFFECTED AREA TWICE DAILY, Pharmacy: [facility] #[id number] Nitrofurant 2018-10 Yes 100 mg = 1 Memoria oin 100 MG 2-13 cap, PO, l Oral 01:44: BID, X 5 Denis Capsule 00 day, # 10 [Macrodanti cap, 0 n] Refill(s), Pharmacy: [facility] #[id number] apixaban 5 2018-10 Yes 5 mg, PO, [...] ermann Bitartrate 00 5 MG Oral Tablet [Linwood 5/325] calcitriol 2018-10 Yes = 1 cap, Mem oria 0.25 mcg 0-11 PO, Daily, l oral 21:10: # 90 [place] capsule 30 unknown unit, Pharmacy: [facility] #[id number] gabapentin Yes 300 mg = 1 M emoria 300 MG Oral 9-27 cap, PO, l Capsule 20:54: BID, # 180 Herm connie 00 cap, 3 Refill(s), called to pharmacy allopurinol Yes = 1 tab, Me moria 300 mg oral 8-17 PO, Daily, l tablet 02:39: # 90 tab, Vicente n 31 Pharmacy: [facility] #[id number] QUEtiapine Yes 50 mg = 1 Me [...] BEDTIME, # 90 tab, 1 Refill(s), Pharmacy: [facility] [place] [address] amLODIPine Yes See Memoria 5 mg oral 3-14 Instructio l tablet 15:07: ns, TAKE 1 Karen nn 33 TABLET BY MOUTH EVERY DAY, # 90 tab, 1 Refill(s), Pharmacy: [facility] [place] [id number] lisinopril Yes See Memoria 5 mg oral 8-21 Instructio l tablet 19:00: ns, TAKE 1 Karen nn 30 TABLET BY MOUTH DAILY, # 90 tab, 1 Refill(s), Pharmacy: [facility] [place] [address] atorvastati Yes See Memori a n 40 mg 8-21 Instructio l oral tablet 18:50: ns, TAKE 1 [place] 45 TABLET BY MOUTH EVERY NIGHT AT BEDTIME, # 30 tab, 5 Refill(s), Pharmacy: [facility] [place] [address] amLODIPine Yes See Memoria 5 mg oral 8-21 Instructio l tablet 18:50: ns, TAKE 1 Karen nn 41 TABLET BY MOUTH EVERY DAY, # 30 tab, 5 Refill(s), Pharmacy: [facility] [place] [address] lisinopril No See Memoria 5 mg oral 7-31 Instructio l tablet 15:28: ns, # 90 Denis 34 tab, TAKE 1 TABLET BY MOUTH DAILY, Pharmacy: [facility] [place] [address] allopurinol No 300 mg = 1 Memoria 300 mg oral 5-10 tab, PO, l tablet 13:59: Daily, # [place] 00 90 tab, 1 Refill(s), Pharmacy: [facility] [place] [address] lisinopril No See Memoria 5 mg oral 5-01 Instructio l tablet 12:38: ns, # 90 Denis 18 tab, TAKE 1 TABLET BY MOUTH DAILY, Pharmacy: [facility] [place] [address] ALLOPURINOL Yes See Memori a 300MG 5-01 Instructio l TABLETS 12:38: ns, # 90 Vicente n 18 tab, TAKE 1 TABLET BY MOUTH DAILY, Pharmacy: [facility] calcitriol Yes 0.25 Memoria 0.25 mcg 3-28 microgram l oral 13:49: = 1 cap, [place] capsule 00 PO, Daily, # 90 cap, 3 Refill(s), Pharmacy: [facility] Mupirocin Yes 1 appl, Memor ia 0.02 MG/MG 3-21 TOP, BID, l Topical 15:37: 30 grams Vicente n Ointment 21 3each, # 3 ea, 1 Refill(s), Pharmacy: [facility] atorvastati Yes See Memori a n 40 mg 3-21 Instructio l oral tablet 15:36: ns, TAKE 1 [place] 22 TABLET BY MOUTH EVERY NIGHT AT BEDTIME, # 30 tab, 5 Refill(s), Pharmacy: [facility] amLODIPine Yes See Memoria 5 mg oral 3-21 Instructio l tablet 15:36: ns, TAKE 1 Karen nn 18 TABLET BY MOUTH EVERY DAY, # 30 tab, 5 Refill(s), Pharmacy: [facility] aspirin 81 Yes 81 mg = 1 Me moria mg tablet, 1-24 tab, PO, l enteric 16:34: Daily, # Vicente n coated 00 90 tab, 3 Refill(s) Xopenex No Kyle K 0.63 mg = Mem oria 0.63 mg/3 3-11 Silvestre 3 mL, l mL 01:00: JOSEMANUEL Martínez, [place] inhalation 00 Once, solution first dose 12/30/15 19:00:00 [employer]INDOWS SERVER ADMINISTRATOR, stop date 12/30/15 19:00:00 WINDOWS SERVER ADMINISTRATOR Misc No Perico 300 mL, Memoria Medication 3-11 Wheat Soln-IV, l 00:03: IV, Once, [place] 00 first dose 12/30/15 18:03:00 WINDOWS SERVER ADMINISTRATOR, stop date 12/30/15 18:03:00 WINDOWS SERVER ADMINISTRATOR promethazin No Kyle K 12.5 mg = Memoria e 3-11 Silvestre 0.5 mL, l 00:02: Injection, Denis 00 IM, Once PRN for severe nausea, first dose 12/30/15 18:02:00 WINDOWS SERVER ADMINISTRATOR albuterol No Kyle K 2.5 mg = 3 Memoria 2.5 mg/3 mL 3-11 Silvestre mL, Soln, l (0.083%) 00:02: NEB, Once Herm connie inhalation 00 PRN for solution wheezing, first dose 12/30/15 18:02:00 WINDOWS SERVER ADMINISTRATOR Demerol HCl No Kyle K 12.5 mg = Memoria 3-11 Silvestre 0.25 mL, l 00:02: Injection, Denis 00 IV Push, Once PRN for shivers, first dose 12/30/15 18:02:00 WINDOWS SERVER ADMINISTRATOR ondansetron No Kyle K 4 mg = 2 Memoria 3-11 Silvestre mL, l 00:02: Injection, Denis 00 IV Push, q15min PRN for nausea/vom iting, order duration: 2 doses, first dose 12/30/15 18:02:00 WINDOWS SERVER ADMINISTRATOR, stop date Limited # of times Dilaudid No Kyle K 0.5 mg = Mem oria 3-11 Silvestre 0.25 mL, l 00:02: Injection, Denis 00 IV Push, q10min PRN for pain severe (7-10), first dose 12/30/15 18:02:00 WINDOWS SERVER ADMINISTRATOR diphenhydrA No Kyle K 25 mg = M emoria MINE 3-11 Silvestre 0.5 mL, l 00:02: Injection, Denis 00 IV Push, Once PRN for itching, first dose 12/30/15 18:02:00 WINDOWS SERVER ADMINISTRATOR LR 1,000 mL No Kyle K 1,000 mL, Memoria 3-11 Silvestre IV, 75 l 00:02: mL/hr, [place] 00 start date 12/30/15 18:02:00 WINDOWS SERVER ADMINISTRATOR Saline Lock No Kyle K 10 mL, Me moria Flush 3-11 Silvestre Soln, IV l 00:02: Push, As Ednis 00 Indicated PRN for flush, first dose 12/30/15 18:02:00 WINDOWS SERVER ADMINISTRATOR Bupivacaine No Kyle K 300 mL, M emoria 0.25% 300 3-11 Silvestre Nerve l mL pump 300 00:02: Block, 5 He rmann mL 00 mL/hr, start date 12/30/15 18:02:00 WINDOWS SERVER ADMINISTRATOR Misc 0 No Perico 1,000 mL, Memori a Medication 3-10 Wheat Soln-IV, l 23:42: IV, Once, Denis 00 first dose 12/30/15 17:42:00 WINDOWS SERVER ADMINISTRATOR, stop date 12/30/15 17:42:00 WINDOWS SERVER ADMINISTRATOR fentaNYL No Perico 25 mcg = Mem oria 3-10 Wheat 0.5 mL, l 23:20: Injection, [place] 00 IV, Once, first dose 12/30/15 17:20:00 WINDOWS SERVER ADMINISTRATOR, stop date 12/30/15 17:20:00 WINDOWS SERVER ADMINISTRATOR ondansetron No Perico 4 mg = 2 Memoria 3-10 Wheat mL, l 23:03: Injection, Denis 00 IV, Once, first dose 12/30/15 17:03:00 WINDOWS SERVER ADMINISTRATOR, stop date 12/30/15 17:03:00 WINDOWS SERVER ADMINISTRATOR fentaNYL No Perico 25 mcg = Mem oria 3-10 Wheat 0.5 mL, l 23:00: Injection, Denis 00 IV, Once, first dose 12/30/15 17:00:00 WINDOWS SERVER ADMINISTRATOR, stop date 12/30/15 17:00:00 WINDOWS SERVER ADMINISTRATOR fentaNYL No Perico 25 mcg = Mem oria 3-10 Wheat 0.5 mL, l 22:48: Injection, [place] 00 IV, Once, first dose 12/30/15 16:48:00 WINDOWS SERVER ADMINISTRATOR, stop date 12/30/15 16:48:00 WINDOWS SERVER ADMINISTRATOR fentaNYL No Perico 25 mcg = Mem oria 3-10 Wheat 0.5 mL, l 22:37: Injection, Denis 00 IV, Once, first dose 12/30/15 16:37:00 WINDOWS SERVER ADMINISTRATOR, stop date 12/30/15 16:37:00 WINDOWS SERVER ADMINISTRATOR dexamethaso 0 No Perico 8 mg = 2 Memoria ne 3-10 Wheat mL, l 22:23: Injection, Denis 00 IV, Once, first dose 12/30/15 16:23:00 WINDOWS SERVER ADMINISTRATOR, stop date 12/30/15 16:23:00 WINDOWS SERVER ADMINISTRATOR Misc 0 No Perico 1,000 mL, Memori a Medication 3-10 Wheat Soln-IV, l 22:21: IV, Once, [place] 00 first dose 12/30/15 16:21:00 WINDOWS SERVER ADMINISTRATOR, stop date 12/30/15 16:21:00 WINDOWS SERVER ADMINISTRATOR clindamycin Yes Perico 928.125 M emoria 3-10 Wheat mg, l 22:18: Soln-IV, [place] 00 IV, Once, first dose 12/30/15 16:18:00 WINDOWS SERVER ADMINISTRATOR, stop date 12/30/15 16:18:00 WINDOWS SERVER ADMINISTRATOR fentaNYL No Perico 25 mcg = Mem oria 3-10 Wheat 0.5 mL, l 22:05: Injection, [place] 00 IV, Once, first dose 12/30/15 16:05:00 WINDOWS SERVER ADMINISTRATOR, stop date 12/30/15 16:05:00 WINDOWS SERVER ADMINISTRATOR midazolam No Perico 0.5 mg = Me moria 3-10 Wheat 0.5 mL, l 22:05: Injection, [place] 00 IV, Once, first dose 12/30/15 16:05:00 WINDOWS SERVER ADMINISTRATOR, stop date 12/30/15 16:05:00 WINDOWS SERVER ADMINISTRATOR lidocaine No Perico 3 mL, Memor ia 3-10 Wheat Injection, l 21:58: IV, Once, Denis 00 first dose 12/30/15 15:58:00 WINDOWS SERVER ADMINISTRATOR, stop date 12/30/15 15:58:00 WINDOWS SERVER ADMINISTRATOR propofol No Perico 120 mg = Mem oria 3-10 Wheat 12 mL, l 21:58: Emulsion, [place] 00 IV, Once, first dose 12/30/15 15:58:00 WINDOWS SERVER ADMINISTRATOR, stop date 12/30/15 15:58:00 WINDOWS SERVER ADMINISTRATOR midazolam No Perico 0.5 mg = Me moria 3-10 Wheat 0.5 mL, l 21:50: Injection, [place] 00 IV, Once, first dose 12/30/15 15:50:00 WINDOWS SERVER ADMINISTRATOR, stop date 12/30/15 15:50:00 WINDOWS SERVER ADMINISTRATOR fentaNYL No Perico 25 mcg = Mem oria 3-10 Wheat 0.5 mL, l 21:50: Injection, [place] 00 IV, Once, first dose 12/30/15 15:50:00 WINDOWS SERVER ADMINISTRATOR, stop date 12/30/15 15:50:00 WINDOWS SERVER ADMINISTRATOR midazolam No Perico 0.5 mg = Me moria 3-10 Wheat 0.5 mL, l 21:10: Injection, Denis 00 IV, Once, first dose 12/30/15 15:10:00 WINDOWS SERVER ADMINISTRATOR, stop date 12/30/15 15:10:00 WINDOWS SERVER ADMINISTRATOR fentaNYL No Perico 25 mcg = Mem oria 3-10 Wheat 0.5 mL, l 21:10: Injection, Denis 00 IV, Once, first dose 12/30/15 15:10:00 WINDOWS SERVER ADMINISTRATOR, stop date 12/30/15 15:10:00 WINDOWS SERVER ADMINISTRATOR fentaNYL No Perico 25 mcg = Mem oria 3-10 Wheat 0.5 mL, l 21:05: Injection, Denis 00 IV, Once, first dose 12/30/15 15:05:00 WINDOWS SERVER ADMINISTRATOR, stop date 12/30/15 15:05:00 WINDOWS SERVER ADMINISTRATOR midazolam No Perico 0.5 mg = Me moria 3-10 Wheat 0.5 mL, l 21:05: Injection, Denis 00 IV, Once, first dose 12/30/15 15:05:00 WINDOWS SERVER ADMINISTRATOR, stop date 12/30/15 15:05:00 WINDOWS SERVER ADMINISTRATOR clindamycin No Jose Francisco 900 mg, IV Memoria 3-10 Johnson Piggyback, l 20:00: Once, Denis 00 infuse over 30 minutes, first dose 12/30/15 14:00:00 WINDOWS SERVER ADMINISTRATOR, stop date 12/30/15 14:00:00 WINDOWS SERVER ADMINISTRATOR, Prophylaxi s LR 1,000 mL No Kyle K 1,000 mL, Memoria 3-10 Silvestre IV, 30 l 19:27: mL/hr, Denis 00 start date 12/30/15 13:27:00 WINDOWS SERVER ADMINISTRATOR Lidocaine No Kyle K 0.2 mL, Mem oria 2% 0.2 mL 3-10 Silvestre Injection, l IV Start 19:27: Subcutaneo [place] [[facility]] 00 us, Once PRN for other (see comment), first dose 12/30/15 13:27:00 WINDOWS SERVER ADMINISTRATOR Seroquel Yes 100 mg, Memori a 3-09 Oral, l 14:40: Daily, 0 [place] 00 Refill(s), migraines acetaminoph Yes 1 tabs, [...] qHS, l n 5 mg-40 14:40: 0 [place] mg oral 00 Refill(s), tablet cholestero l/hyperten will Osteo Yes Oral, Memoria Bi-Flex 3- Daily, 0 l 14:40: Refill(s), [place] 00 supplement Nature's Yes 1,000 mg = [...] 12-28 1 tabs, l tablet 14:40: Oral, [place] 00 Once, PRN for migraine headache, may repeat dose once in 2 hours, # 6 tabs, 0 Refill(s), migrainesm ay repeat dose once in 2 hours Wellbutrin Yes 300 mg, Turner arnoldo XL 12-28 Oral, l 14:40: q24hr, 0 Denis 00 Refill(s), migraines Immunizations Ordered Immunization Filled Immunization Date Status Commen ts Source Name Name Hx influenza 2019-08-13 Completed [facility] vaccine-unspecified< 00:00:00 Herm connie sup>1</sup> pneumococcal 2019-05-14 Completed [facility] 23-valent 00:00:00 Denis vaccine<sup>3</sup> Hx influenza 2011-08-15 Completed [facility] vaccine-unspecified< 14:42:42 Herm connie sup>1</sup> Hx influenza 2011-08-15 Completed [facility] vaccine-unspecified< 14:42:42 Herm connie sup>2</sup> Vital Signs Vital Name Observation Time Observation Value Comments Source Heart Rate 2021-09-09 20:12:00 [facility] [place] Heart Rate 2021-09-09 20:08:00 [facility] [place] Systolic (mm Hg) 2021-09-09 20:08:00 Turner rial [place] Diastolic (mm Hg) 2021-09-09 20:08:00 [facility] [place] Height 2021-09-09 20:08:00 165.1 cm [facility] [place] Weight 2021-09-09 20:08:00 [facility] [place] BMI Calculated 2021-09-09 20:08:00 [facility] [place] Systolic (mm Hg) 2020-09-15 15:59:00 Turner rial [place] Diastolic (mm Hg) 2020-09-15 15:59:00 [facility] [place] Heart Rate 2020-09-15 15:59:00 [facility] [place] Height 2020-09-15 15:59:00 165.1 cm [facility] Weight 2020-09-15 15:59:00 [facility] [place] BMI Calculated 2020-09-15 15:59:00 [facility] [place] Systolic (mm Hg) 2019-12-16 20:42:00 Turner rial [place] Diastolic (mm Hg) 2019-12-16 20:42:00 [facility] [place] Heart Rate 2019-12-16 20:42:00 [facility] [place] Temperature Oral (F) 2019-12-16 20:42:00 98.2 F [facility] Height 2019-12-16 20:42:00 170.18 cm [facility] [place] Weight 2019-12-16 20:42:00 [facility] [place] BMI Calculated 2019-12-16 20:42:00 [facility] [place] Systolic (mm Hg) 2019-10-02 21:53:00 Turner rial [place] Diastolic (mm Hg) 2019-10-02 21:53:00 [facility] [place] Heart Rate 2019-10-02 21:53:00 [facility] [place] Temperature Oral (F) 2019-10-02 21:53:00 97.9 F [facility] [place] Height 2019-10-02 21:53:00 165.1 cm [facility] [place] Weight 2019-10-02 21:53:00 [facility] [place] BMI Calculated 2019-10-02 21:53:00 [facility] [place] Height 2019-08-15 14:54:00 165.1 cm [facility] [place] Weight 2019-08-15 14:54:00 [facility] [place] BMI Calculated 2019-08-15 14:54:00 [facility] [place] Systolic (mm Hg) 2019-08-15 14:54:00 Turner rial [place] Diastolic (mm Hg) 2019-08-15 14:54:00 [facility] [place] Heart Rate 2019-08-15 14:54:00 [facility] [place] Temperature Oral (F) 2019-08-15 14:54:00 97.6 F [facility] [place] Systolic (mm Hg) 2019-07-31 15:37:00 Turner rial [place] Diastolic (mm Hg) 2019-07-31 15:37:00 [facility] [place] Heart Rate 2019-07-31 15:37:00 [facility] [place] Temperature Oral (F) 2019-07-31 15:37:00 98.2 F [facility] [place] Height 2019-07-31 15:37:00 165.1 cm [facility] [place] Weight 2019-07-31 15:37:00 [facility] [place] BMI Calculated 2019-07-31 15:37:00 [facility] [place] Weight 2019-03-27 15:18:00 [facility] [place] BMI Calculated 2019-03-27 15:18:00 [facility] [place] Height 2019-03-27 15:18:00 165.1 cm [facility] [place] Temperature Oral (F) 2019-03-27 15:18:00 98.4 F [facility] [place] Heart Rate 2019-03-27 15:18:00 [facility] [place] Systolic (mm Hg) 2019-03-27 15:18:00 Turner rial [place] Diastolic (mm Hg) 2019-03-27 15:18:00 [facility] [place] Height 2019-01-02 19:16:00 165.1 cm [facility] [place] BMI Calculated 2019-01-02 19:16:00 [facility] [place] Weight 2019-01-02 19:16:00 [facility] [place] Heart Rate 2019-01-02 19:16:00 [facility] [place] Systolic (mm Hg) 2019-01-02 19:16:00 Turner rial [place] Diastolic (mm Hg) 2019-01-02 19:16:00 Mem orial [place] Height 2019-01-02 14:26:00 167.01 cm [facility] [place] BMI Calculated 2019-01-02 14:26:00 [facility] [place] Weight 2019-01-02 14:26:00 [facility] [place] Heart Rate 2019-01-02 14:26:00 [facility] [place] Temperature Oral (F) 2019-01-02 14:26:00 97.9 F [facility] [place] Systolic (mm Hg) 2019-01-02 14:26:00 Turner rial [place] Diastolic (mm Hg) 2019-01-02 14:26:00 Mem o[facility] [place] Systolic (mm Hg) 2018-07-18 18:33:00 Turner rial [place] Diastolic (mm Hg) 2018-07-18 18:33:00 [facility] [place] Heart Rate 2018-07-18 18:33:00 [facility] [place] Weight 2018-07-18 18:33:00 [facility] [place] BMI Calculated 2018-06-11 18:31:00 [facility] [place] Weight 2018-06-11 18:31:00 [facility] [place] Systolic (mm Hg) 2018-06-11 18:31:00 Turner rial [place] Diastolic (mm Hg) 2018-06-11 18:31:00 Mem orial [place] Height 2018-06-11 18:31:00 170.18 cm [facility] [place] Temperature Oral (F) 2018-06-11 18:31:00 98.3 F [facility] [place] Heart Rate 2018-06-11 18:31:00 [facility] [place] Weight 2018-01-10 16:14:00 [facility] [place] Height 2018-01-10 16:14:00 170.18 cm [facility] [place] BMI Calculated 2018-01-10 16:14:00 [facility] [place] Heart Rate 2018-01-10 16:14:00 [facility] [place] Systolic (mm Hg) 2018-01-10 16:14:00 Turner rial [place] Diastolic (mm Hg) 2018-01-10 16:14:00 Mem orial [place] BMI Calculated 2018-01-09 15:06:00 [facility] [place] Height 2018-01-09 15:06:00 170.18 cm [facility] [place] Weight 2018-01-09 15:06:00 [facility] [place] Systolic (mm Hg) 2018-01-09 15:06:00 Turner rial Denis Diastolic (mm Hg) 2018-01-09 15:06:00 [facility] [place] Heart Rate 2018-01-09 15:06:00 [facility] [place] Temperature Oral (F) 2018-01-09 15:06:00 97.9 F [facility] [place] Weight 2016-11-14 16:17:00 [facility] [place] Height 2016-11-14 16:17:00 170.18 cm [facility] [place] BMI Calculated 2016-11-14 16:17:00 [facility] al [place] Respitory Rate 2015-12-31 01:25:00 [facility] [place] Systolic (mm Hg) 2015-12-31 00:50:00 Turner rial Denis Respitory Rate 2015-12-31 00:50:00 [facility] [place] Heart Rate 2015-12-31 00:50:00 [facility] [place] Systolic (mm Hg) 2015-12-31 00:40:00 Turner rial Denis Respitory Rate 2015-12-31 00:40:00 [facility] [place] Heart Rate 2015-12-31 00:40:00 [facility] [place] Heart Rate 2015-12-31 00:30:00 [facility] [place] Systolic (mm Hg) 2015-12-31 00:30:00 Turner rial Denis Temperature Oral (F) 2015-12-30 23:50:00 37.1 Linda [facility] [place] Height 2015-12-30 19:23:00 169 cm [facility] [place] Weight 2015-12-30 19:23:00 [facility] [place] Temperature Oral (F) 2015-12-30 19:23:00 36.6 Linda [facility] [place] Height 2015-12-29 14:13:00 170 cm [facility] [place] Weight 2015-12-29 14:13:00 [facility] Denis Procedures Procedure Date / Time Performed Performing Clinician Tanner sumner Diabetic retinal eye 2019-12-11 06:00:00 Jourdan Barrios exam<sup>1</sup> Mammogram 2017-05-05 05:00:00 [facility] [place] Colonoscopy<sup>2</sup> 2016-11-17 06:00:00 Turner rial Denis OPEN REDUCTION INTERNAL 2015-12-30 22:13:00 Jose Francisco Johnson Mem[facility] [place] FIXATION RADIUS INTRA-ARTICULAR W/3 FRAGMENTS 01189 (Right)<sup>1</sup> Repair of 2015-12-30 06:00:00 Aylin Her hunt wrist<sup>1</sup> skin cancer removed from 2011-10-22 00:00:00 Mem orial [place] arm Skin cancer of [facility] arm<sup>2</sup> Procedure<sup>2</sup> [facility] Tubal ligation [facility] [place] Eye operation [facility] [place] Biopsy of breast [facility] bilateral radial [facility] kerototomy bilateral tubal ligation Mem[facility] l [place] colonoscopy [facility] [place] Encounters Start End Encounter Admission Attending Care Care Encounter Source Date/Time Date/Time Type Type Clinicians Facility Department ID 2021-11-15 2021-11-15 Outpatient [facility], [facility] [id number] [place] 00:00:00 00:00:00 RAZIUDDIN 169 [facility] 2021-11-14 2021-11-14 Outpatient [facility] [id number] [place] 00:00:00 00:00:[address] RAZ[address]IN [address] 2021-09-20 2021-09-20 Outpatient [facility] [id number] [place] 00:00:00 00:00:[address] RA[address]IN [address] 2021-09-12 2021-09-13 Between nullFlavo [facility] Family [id number] Memoria 14:18:24 14:18:24 Visit r Medicine 62 l Carrillo Zhang n 2021-09-12 2021-09-13 Between nullFlavo [facility] Family [id number] Memoria 00:56:47 00:56:47 Visit r Medicine 61 l Carrillo davis 2021-09-09 2021-09-10 Outpatient nullFlavo [facility] Family 3 [id number] Memoria 20:00:00 05:59:59 r Medicine 52 l Carrillo Zhang n 2021-09-06 2021-09-08 Phone nullFlavo [facility] Family [id number] Memoria 21:38:38 05:59:59 Message r Medicine 13 l Carrillo davis 2021-09-07 2021-09-07 Outpatient [facility] [id number] [place] 00:00:00 00:00:00 MARY [facility] 2021-09-05 2021-09-06 Between nullFlavo [facility] Family [id number] Memoria 15:33:59 15:33:59 Visit r Medicine 59 l Carrillo davis 2021-07-14 2021-07-26 Inpatient SOLIPURAM, [facility] [id number] [place] 00:00:00 00:00:00 MICHELLE [address] 2021-07-13 2021-07-13 Outpatient OPPERMANN, [facility] [id number] [place] 00:00:00 00:00:00 KRISTIAN [address] 2021-06-30 2021-06-30 Outpatient AHMED, [facility] [id number] [place] 00:00:00 00:00:00 RAZIUDDIN [address] 2021-06-07 2021-06-07 Outpatient EKERUO, [facility] [id number] [place] 00:00:00 00:00:00 MARY 787 [facility] i 2021-06-07 2021-06-07 Outpatient DAOURA, [facility] [id number] [place] 00:00:00 00:00:00 NILESH 546 [facility] i 2021-05-19 2021-05-26 Inpatient MATHIVANAN, [facility] [id number] [place] 00:00:00 00:00:00 COURTNEY 275 [facility] i 2021-05-12 2021-05-12 Outpatient AHMED, [facility] [id number] [place] 00:00:00 00:00:00 RAZIUDDIN 199 [facility] aiden 2021-05-11 2021-05-11 Outpatient EKERUO, [facility] [id number] [place] 00:00:00 00:00:00 MARY 640 [facility] 2021-05-06 2021-05-06 Outpatient EKERUO, [facility] [id number] [place] 00:00:00 00:00:00 MARY [address] 2021-05-06 2021-05-06 Outpatient EKERUO, [facility] [id number] [place] 00:00:00 00:00:00 MARY [address] 2021-05-03 2021-05-03 Outpatient EKERUO, [facility] [id number] [place] 00:00:00 00:00:00 MARY 709 [facility] i 2021-04-08 2021-04-21 Inpatient SOLIPURAM, [facility] [id number] [place] 00:00:00 00:00:00 MICHELLE [address] 2021-03-09 2021-03-09 [facility] [id number] [place] 00:00:00 00:00:00 RAZIUDDIN [address] 2021-02-24 2021-02-24 Outpatient nullFlavo [place] [id number] Memoria 01:00:00 04:59:00 r Denis 58 l Dawson Karen nn 2021-02-23 2021-02-23 Outpatient AHMED, [facility] [id number] [facility] 20:00:00 23:59:00 RAZIUDDIN 2021-02-10 2021-02-10 [facility] [id number] [place] 00:00:00 00:00:00 RAZ[address]UDDIN [address] 2021-02-03 2021-02-08 [id number] [place] 00:00:00 00:00:00 COURTNEY [address] 2021-01-20 2021-01-20 Outpatient [facility] [id number] [place] 00:00:00 00:00:[address] 2021-01-18 2021-01-19 Outpatient nullFlavo [facility] Family 3 [id number] Memoria 19:30:00 04:59:59 r Medicine 51 l Carrillo Zhang n 2021-01-18 2021-01-18 Outpatient [facility] [id number] [place] 00:00:00 00:00:[address] 2021-01-14 2021-01-15 Between nullFlavo [facility] [id number] Memoria 13:38:03 13:38:03 Visit r Medicine 57 l Carrillo Zhang n 2021-01-12 2021-01-12 Outpatient [facility], [facility] [id number] [place] 00:00:00 00:00:00 RAZIUDDIN [address] 2020-12-31 2021-01-05 [facility] [id number] [place] 00:00:00 00:00:00 COURTNEY [address] 2020-12-17 2020-12-28 [facility] Vidya [id number] [place] 00:00:00 00:00:00 COURTNEY 559 [facility] i 2020-10-11 2020-10-18 Inpatient MARY ALICE [facility] [id number] [place] 00:00:00 00:00:00 COURTNEY 271 [facility] i 2020-09-15 2020-09-16 Outpatient nullFlavo [facility] Family 3 [id number] Memoria 16:30:00 05:59:59 r Medicine 50 l Carrillo Zhang n 2020 2020-09-07 Inpatient KRISHNA, [facility] [id number] [place] 00:00:00 00:00:00 MICHELLE 464 [facility] i 2020-08-13 2020-09-01 [facility] [id number] [place] 00:00:00 00:00:00 MICHELLE 557 [facility] i 2020-08-13 2020-08-14 Outpt Diag nullFlavo [facility] [id number] Memoria 18:10:00 04:59:00 Services r Outpatient 06 l Imaging Denis Dawson 2020-08-11 2020-08-12 Between nullFlavo [facility] Family [id number] Memoria 17:58:19 17:58:19 Visit r Medicine 56 l Carrillo Zhang n 2020-08-03 2020-08-04 Outpatient nullFlavo [facility] Family 3 [id number] Memoria 15:15:00 04:59:59 r Medicine 49 l Carrillo Zhang n 2020-06-22 2020-06-23 Outpt Diag nullFlavo [facility] [id number] Memoria 17:02:00 04:59:00 Services r Outpatient 05 l Imaging Denis Dawson 2020-06-17 2020-06-17 Ambulatory nullFlavo [facility] [id number] Memoria 19:00:00 19:00:00 Pre-Reg r Nephrology 46 l Carrillo Zhang n 2020-06-10 2020-06-10 Outpatient [facility] [id number] Memoria 11:15:00 11:15:00 47 l Denis 2020-06-02 2020-06-03 Outpatient nullFlavo [facility] [id number] Memoria 19:45:00 04:59:59 r Nephrology 48 l Carrillo Zhang n 2020-05-20 2020-05-20 Outpatient MANGIN, [facility] [id number] [place] 00:00:00 00:00:00 FABIOLA [address] 2020-03-23 2020-03-25 Phone nullFlavo MG [id number] Memoria 16:17:50 04:59:59 Message r Nephrology 12 leonard Zhang ryan 2020-03-18 2020-03-19 [place] [id number] Mem[facility] 19:00:00 04:59:59 r Nephrology 41 l Carrillo Zhang ryan 2020-03-08 2020-03-10 Phone nullFlavo MG [id number] Memoria 18:35:51 04:59:59 Message r Nephrology 11 l Walter [place] 2020-02-11 2020-02-12 Outpatient nullFlavo [facility] Family 3 [id number] Memoria 15:15:00 04:59:59 r Medicine 45 leonard Zhang ryan 2020-02-11 2020-02-11 Ambulatory nullFlavo [facility] Family 3 [id number] Memoria 15:15:00 15:15:00 Pre-Reg r Medicine 44 l Carrillo Zhang ryan 2020-02-05 2020-02-07 Phone nullFlavo [facility] [id number] Memoria 13:23:32 04:59:59 Message r Nephrology 10 leonard Zhang ryan 2020-02-05 2020-02-06 Between nullFlavo [facility] Family [id number] Memoria 14:14:54 14:14:54 Visit r Medicine 52 leonard Zhang ryan 2020-02-05 2020-02-05 Outpatient [facility] [place] [id number] Memoria 11:30:00 11:30:00 43 leonard Denis 2020-02-02 2020-02-04 Phone nullFlavo [facility] Family [id number] Memoria 20:00:15 04:59:59 Message r Medicine 09 leonard Zhang ryan 2020-01-30 2020-02-01 Phone nullFlavo [facility] Family [id number] Memoria 17:18:28 04:59:59 Message r Medicine 08 leonard Zhang ryan 2020-01-30 2020-02-01 Phone nullFlavo MG [id number] Memoria 13:26:55 04:59:59 Message r Nephrology 07 l Carrillo Zhang ryan 2019-12-16 2019-12-17 Outpatient nullFlavo [facility] Family 3 [id number] Memoria 20:15:00 05:59:59 r Medicine 42 leonard davis 2019-11-13 2019-11-15 Phone nullFlavo [facility] Family [id number] Memoria 14:22:27 05:59:59 Message r Medicine 06 leonard davis 2019-10-17 2019-10-19 Phone nullFlavo [facility] [id number] Memoria 16:06:04 05:59:59 Message r Medicine 05 leonard davis 2019-10-02 2019-10-03 Between nullFlavo MG [id number] [facility] 20:05:03 20:05:03 Visit r Nephrology 45 leonard Barrios 2019-10-02 2019-10-03 [place] [id number] Memoria 20:45:00 05:59:59 r Nephrology 38 leonard Zhang ryan 2019-09-26 2019-09-27 Between nullFlavo MG [id number] [facility]oria 00:07:10 00:07:10 Visit r Nephrology 43 leonard Barrios 2019-09-25 2019-09-25 Outpatient [facility] IE [id number] Memoria 09:00:00 09:00:00 39 leonard [place] 2019-09-16 2019-09-17 Between nullFlavo [facility] [id number] Memoria 21:47:12 21:47:12 Visit r Medicine 41 leonard Zhang ryan 2019-08-19 2019-08-20 Between nullFlavo [facility] [id number] Memoria 22:13:13 22:13:13 Visit r Medicine 40 leonard Zhang ryan 2019-08-15 2019-08-16 Outpatient nullFlavo [facility] 3 [id number] Memoria 14:45:00 04:59:59 r Medicine 40 leonard Zhang ryan 2019-08-07 2019-08-07 Ambulatory nullFlavo [facility] 3 [id number] Memoria 16:00:00 16:00:00 Pre-Reg r Medicine 36 leonard Zhang ryan 2019-07-31 2019-08-01 [place] [id number] [facility] 15:00:00 04:59:59 r Nephrology 35 leonard Zhang ryan 2019-07-31 2019-07-31 Outpatient IE IE [id number] [facility]oria 12:00:00 12:00:00 37 leonard Barrios 2019-07-03 2019-07-05 Phone nullFlavo [facility] Family [id number] Memoria 15:15:06 04:59:59 Message r Medicine 04 leonard davis 2019-07-03 2019-07-05 Phone nullFlavo MG [id number] [facility]oria 15:10:51 04:59:59 Message r Nephrology 03 leonard davis 2019-07-03 2019-07-03 [place] [id number] [facility] 20:00:00 20:00:00 Pre-Reg r Nephrology 34 leonard davis 2019-06-29 2019-06-30 Between nullFlavo [facility] [id number] Memoria 20:15:16 20:15:16 Visit r Nephrology 34 leonard Barrios 2019-06-11 2019-06-13 Phone nullFlavo [facility] [id number] Memoria 15:29:54 04:59:59 Message r Nephrology 02 leonard Rameyann 2019-06-12 2019-06-12 Ambulatory nullFlavo [facility] [id number] Memoria 16:30:00 16:30:00 Pre-Reg r Nephrology 29 leonard davis 2019-06-12 2019-06-12 [place] [id number] [facility] 16:15:00 16:15:00 Pre-Reg r Nephrology 30 leonard davis 2019-06-12 2019-06-12 Ambulatory nullFlavo [facility] Family 3 [id number] Memoria 15:15:00 15:15:00 Pre-Reg r Medicine 31 leonard davis 2019-06-09 2019-06-10 In[place] [id number] [place] 10:05:00 17:55:00 [facility]IN [facility] 2019-05-12 2019-05-14 [id number] [place] 21:36:00 19:00:00 EDUIN [facility] 2019-05-12 2019-05-13 Outpatient nullFlavo [facility] [id number] Memoria 20:40:00 04:59:59 r Care 33 leonard Barrios 2019-03-27 2019-03-28 Outpatient nullFlavo [facility] 3 [id number] [facility] 15:15:00 04:59:59 r Medicine 32 l Carrillo Zhang ryan 2019-01-05 2019-01-06 Between nullFlavo [facility] [id number] Memoria 19:00:16 19:00:16 Visit r Medicine 29 l Carrillo Zhang ryan 2019-01-02 2019-01-03 Between nullFlavo MG [id number] [facility] 15:02:37 15:02:37 Visit r Nephrology 27 l Carrillo Zhang ryan 2019-01-02 2019-01-03 [place] [id number] [facility] 18:45:00 04:59:59 r Nephrology 28 l Carrillo Zhnag ryan 2019-01-02 2019-01-03 Outpatient nullFlavo [facility] 3 [id number] Memoria 14:15:00 04:59:59 r Medicine 22 l Carrillo Zhang ryan 2018-12-31 2019-01-01 Between nullFlavo MG [id number] [facility] 23:59:47 23:59:47 Visit r Nephrology 26 leonard Zhang ryan 2018-12-27 2018-12-28 Between nullFlavo MG [id number] [facility] 22:00:33 22:00:33 Visit r Nephrology 24 leonard Zhang ryan 2018-12-27 2018-12-28 Between nullFlavo MG [id number] [facility] 04:48:44 04:48:44 Visit r Nephrology 23 leonard Zhang ryan 2018-11-14 2018-11-14 [place] [id number] [facility] 20:30:00 20:30:00 Pre-Reg r Nephrology 27 leonard Zhang ryan 2018-11-14 2018-11-14 [place] [id number] Memoria 18:40:00 18:40:00 Pre-Reg r Nephrology 24 leonard Zhang ryan 2018-11-07 2018-11-07 [place] [id number] [facility] 15:30:00 15:30:00 Pre-Reg r Internal 25 leonard Vizcaino 2018-07-11 2018-08-10 Ambulatory nullFlavo [facility] [id number] [facility] 12:45:00 12:45:00 Pre-Reg r Internal 23 leonard Narayan Vizcaino 2018-07-18 2018-07-19 Outpatient nullFlavo [facility] [id number] Memoria 19:15:00 04:59:59 r Nephrology 26 leonard Zhang ryan 2018-07-18 2018-07-19 Outpatient nullFlavo [facility] [id number] [facility] 18:00:00 04:59:59 r Nephrology 21 l Carrillo Zhang ryan 2018-06-11 2018-06-12 Outpatient nullFlavo [facility] Family 3 [id number] Memoria 18:30:00 04:59:59 r Medicine 20 leonard Zhang ryan 2018-01-10 2018-01-11 Outpatient nullFlavo [facility] [id number] [facility] 16:00:00 04:59:59 r Nephrology 19 leonard Zhang ryan 2018-01-09 2018-01-10 Outpatient nullFlavo [facility] Family 3 [id number] Memoria 15:00:00 04:59:59 r Medicine 18 leonard Zhang ryan 2017-07-19 2017-07-19 Outpatient MHIE IE [id number] Memoria 10:40:00 10:40:00 16 leonard Barrios 2017-06-27 2017-06-27 Outpatient MHIE MHIE [id number] Memoria 11:30:00 11:30:00 17 leonard Barrios 2017-03-01 2017-03-01 Outpatient [facility]IE ADRIANIE [id number] Memoria 11:40:00 11:40:00 11 leonard Barrios 2016-12-26 2016-12-26 Outpatient [facility]IE ADRIANIE [id number] Memoria 14:30:00 14:30:00 15 leonard Barrios 2016-11-27 2016-11-27 Outpatient MHIE MHIE [id number] Memoria 10:00:00 10:00:00 08 leonard Barrios 2016-11-17 2016-11-17 [facility] [id number] Memoria 11:48:35 14:30:00 Outpatient connie Barrios 13 l Bhavani robb 2016-11-09 2016-11-09 Outpatient MHIE MHIE [id number] Memoria 13:15:00 13:15:00 14 leonard Barrios 2016-10-18 2016-10-18 Outpatient IE IE [id number] Memoria 09:30:00 09:30:00 12 leonard Barrios 2016-10-18 2016-10-18 Outpatient MHIE IE [id number] Memoria 09:30:00 09:30:00 13 leonard Barrios 2016-10-12 2016-10-12 Outpatient IE IE [id number] [facility]oria 10:20:00 10:20:00 09 leonard Barrios 2016-07-13 2016-07-13 Outpatient IE IE [id number] [facility]oria 13:00:00 13:00:00 04 leonard Barrios 2016-05-24 2016-05-24 Outpatient IE IE [id number] [facility]oria 11:15:00 11:15:00 06 leonard Barrios 2016-04-13 2016-05-13 OP Therapy nullFlavo SMR [id number] Memoria 13:00:00 04:59:00 Patients r Girish 03 leonard Benji Denis 2016-03-14 2016-04-13 OP Therapy nullFlavo SMR [id number] Memoria 17:39:00 04:59:00 Patients r Girish 02 leonard Benji Denis 2016-03-09 2016-04-08 OP Therapy nullFlavo SMR [place] [id number] Memoria 19:00:00 04:59:00 Patients r [place] 01 leonard Barrios 2016-03-13 2016-03-14 Outpt Diag nullFlavo [facility] [id number] Memoria 16:14:00 04:59:00 Services r Outpatient 04 l Imaging [place] 2016-02-08 2016-03-09 OP Therapy nullFlavo SMR Sugar [id number] Memoria 19:00:00 04:59:00 Patients r [place] 00 leonard Barrios 2016-03-02 2016-03-02 Outpatient IE IE [id number] Memoria 10:20:00 10:20:00 01 leonard Barrios 2016-02-29 2016-03-01 Outpt Diag nullFlavo [facility] [id number] Memoria 14:59:00 04:59:00 Services r Outpatient 03 l Imaging Denis Soto 2016-01-20 2016-01-21 Outpt Diag nullFlavo [facility] [id number] Memoria 18:11:00 04:59:00 Services r Outpatient 01 l Imaging Denis Dawson 2015-12-30 2015-12-30 Outpatient nullFlavo [facility] [id number] Memoria 12:50:31 19:25:00 r l Denis 2015-11-30 2015-12-01 Outpt Diag nullFlavo [facility] [id number] Memoria 12:58:00 05:59:00 Services r Outpatient 00 l Imaging [place] 2015-11-19 2015-11-19 Outpatient IE [facility] [id number] Memoria 10:15:00 10:15:00 02 l Denis 2015-09-02 2015-09-02 Outpatient [facility] [id number] Memoria 11:30:00 11:30:00 00 l Denis 2013-12-18 2013-12-18 Outpatient nullFlavo [facility] [id number] Memoria 01:16:00 05:59:00 r Denis [id number] l Dawson 1 Karen nn 2013-12-17 2013-12-17 Outpatient nullFlavo [id number] Memoria 19:16:00 19:16:00 r [place] 01 l Denis 2013-12-02 2013-12-02 Outpatient nullFlavo [id number] Memoria 19:43:00 19:43:00 r [place] 00 l Denis Results Test Description Test Time Test Comments Results Result Comments Source SARS-CoV-2 (COVID-19) RNA [Presence] in Respiratory sp ecimen by 2021-07-14 22:34:30 DANIEL with probe detection Test Item Value Reference Range Interpretation Comme nts SARS-CoV-2 (COVID-19) RNA [Presence] in Respiratory Not detected No t-Detected specimen by DANIEL with probe detection (test code = 72713-3) Whether patient is employed in a healthcare setting (test code = 38431-6) Whether the patient has symptoms related to condition of interest (test code = 79714-4) Patient was hospitalized because of this condition (test code = 44132-2) Whether the patient was admitted to intensive care unit (ICU) for condition of interest (test code = 85706-9) Whether patient resides in a congregate care setting (test code = 22728-7) SARS-CoV-2 (COVID-19) RNA [Presence] in Respiratory specimen by DANIEL with probe cekvqfzfk3175-63-43 22:35:42 Test Item Value Reference Range Interpretation Comments SARS-CoV-2 (COVID-19) RNA Not detected Not-Detected [Presence] in Respiratory specimen by DANIEL with probe detection (test code = 77594-9) Whether patient is employed in a healthcare setting (test code = 84309-1) Whether the patient has symptoms related to condition of interest (test code = 92311-8) Patient was hospitalized because of this condition (test code = 93171-7) Whether the patient was admitted to intensive care unit (ICU) for condition of interest (test code = 05555-3) Whether patient resides in a congregate care setting (test code = 93523-1) SARS-CoV-2 (COVID-19) RNA [Presence] in Respiratory specimen by DANIEL with probe dxiblcjru5629-00-80 22:46:10 Test Item Value Reference Range Interpretation Comments SARS-CoV-2 (COVID-19) RNA Not detected Not-Detected [Presence] in Respiratory specimen by DANIEL with probe detection (test code = 23453-1) Whether patient is employed in a healthcare setting (test code = 40984-7) Whether the patient has symptoms related to condition of interest (test code = 66071-6) Patient was hospitalized because of this condition (test code = 21163-3) Whether the patient was admitted to intensive care unit (ICU) for condition of interest (test code = 47609-0) Whether patient resides in a congregate care setting (test code = 96165-9) SARS-CoV-2 (COVID-19) RNA [Presence] in Respiratory specimen by DANIEL with probe ksjodtyqj1776-92-52 01:54:24 Test Item Value Reference Range Interpretation Comments SARS-CoV-2 (COVID-19) RNA Not detected Not-Detected [Presence] in Respiratory specimen by DANIEL with probe detection (test code = 98494-7) Whether patient is employed in a healthcare setting (test code = 38120-6) Whether the patient has symptoms related to condition of interest (test code = 02736-6) Patient was hospitalized because of this condition (test code = 30870-2) Whether the patient was admitted to intensive care unit (ICU) for condition of interest (test code = 23730-9) Whether patient resides in a congregate care setting (test code = 29718-0) SARS-CoV-2 (COVID-19) RNA [Presence] in Respiratory specimen by DANIEL with probe mkxqjxbtd6535-00-20 21:44:06 Test Item Value Reference Range Interpretation Comments SARS-CoV-2 (COVID-19) RNA Not detected Not-Detected [Presence] in Respiratory specimen by DANIEL with probe detection (test code = 76127-0) Whether patient is employed in a healthcare setting (test code = 81540-0) Whether the patient has symptoms related to condition of interest (test code = 22366-0) Patient was hospitalized because of this condition (test code = 47139-9) Whether the patient was admitted to intensive care unit (ICU) for condition of interest (test code = 63759-5) Whether patient resides in a congregate care setting (test code = 08448-4) SARS-CoV-2 (COVID-19) RNA [Presence] in Respiratory specimen by DANIEL with probe yzfotmkhz1553-36-07 00:36:59 Test Item Value Reference Range Interpretation Comments SARS-CoV-2 (COVID-19) RNA Not detected Not-Detected [Presence] in Respiratory specimen by DANIEL with probe detection (test code = 69570-9) SARS-CoV-2 (COVID-19) RNA [Presence] in Respiratory specimen by DANIEL with probe gkjrdxzrk8716-42-94 17:35:35 Test Item Value Reference Range Interpretation Comments SARS-CoV-2 (COVID-19) RNA Not detected Not-Detected [Presence] in Respiratory specimen by DANIEL with probe detection (test code = 72837-7) SARS-CoV-2 (COVID-19) RNA [Presence] in Respiratory specimen by DANIEL with probe ccmcjapzc8870-74-62 18:03:30 Test Item Value Reference Range Interpretation Comments SARS-CoV-2 (COVID-19) RNA Not detected Not-Detected [Presence] in Respiratory specimen by DANIEL with probe detection (test code = 51547-8) SARS-CoV-2 (COVID-19) RNA [Presence] in Respiratory specimen by DANIEL with probe ingvmvqgl6907-42-56 10:06:03 Test Item Value Reference Range Interpretation Comments SARS-CoV-2 (COVID-19) RNA Not detected Not-Detected [Presence] in Respiratory specimen by DANIEL with probe detection (test code = 48526-0) SARS-CoV-2 (COVID-19) RNA [Presence] in Respiratory specimen by DANIEL with probe knkfnptgf6776-99-40 05:11:58 Test Item Value Reference Range Interpretation Comments SARS-CoV-2 (COVID-19) RNA Not detected Not-Detected [Presence] in Respiratory specimen by DANIEL with probe detection (test code = 28652-6) SARS-CoV-2 (COVID-19) RNA [Presence] in Respiratory specimen by DANIEL with probe wpcpmyfey9130-73-35 03:34:16 Test Item Value Reference Range Interpretation Comments SARS-CoV-2 (COVID-19) RNA Not detected Not-Detected [Presence] in Respiratory specimen by DANIEL with probe detection (test code = 43093-7) SARS-CoV-2 (COVID-19) RNA [Presence] in Respiratory specimen by DANIEL with probe chqksqatf7975-07-39 10:06:41 Test Item Value Reference Range Interpretation Comments SARS-CoV-2 (COVID-19) RNA Not detected Not-Detected [Presence] in Respiratory specimen by DANIEL with probe detection (test code = 52961-2) [id number] 12:33:00 Test Item Value Reference Range Interpretation Comments Chol (test code = Chol) 129 [facility] 12:33:00 Test Item Value Reference Range Interpretation Comments HDL (test code = HDL) 37 [facility] CenterSaghvuzRFARWY7156-05-54 12:33:00 Test Item Value Reference Range Interpretation Comments Trig (test code = Trig) 76 [facility] CenterMqqcjbmPJBCXT5870-32-90 12:33:00 Test Item Value Reference Range Interpretation Comments LDL (Calculated) (test code = LDL 76 (Calculated)) [facility] CenterVghbweyIKUEER0240-28-83 12:33:00 Test Item Value Reference Range Interpretation Comments CHD Risk (test code = CHD Risk) 3.5 [facility] CenterDheppvpQDIXOV1982-51-43 12:33:00 Test Item Value Reference Range Interpretation Comments Non HDL Chol (test code = Non HDL Chol) 92 [facility] CPGFL8395-98-96 14:47:00 Test Item Value Reference Range Interpretation Comments Vitamin D, 25-OH, Total (test code = 37 30-100 Vitamin D, 25-OH, Total) [facility] [id number] 14:47:00 Test Item Value Reference Range Interpretation Comments U Creat mg/dL (test code = U Creat 114 20-275 mg/dL) [facility]2020-08-06 14:47:00 Test Item Value Reference Range Interpretation Comments U Prot/Creat (test code = U Prot/Creat) 430 21-161 [place] [address]-08-06 14:47:00 Test Item Value Reference Range Interpretation Comments U Prot/Creat (test code = U 0.430 1 0.021-0.161 Prot/Creat) [facility]2020-08-06 14:47:00 Test Item Value Reference Range Interpretation Comments U Protein (test code = U Protein) 49 5-24 [place] 491980-08-06 14:47:00 Test Item Value Reference Range Interpretation Comments Glucose Lvl (test code = Glucose Lvl) 103 65-99 [place] 491980-08-06 14:47:00 Test Item Value Reference Range Interpretation Comments BUN (test code = BUN) 24 7-25 [place] 491980-08-06 14:47:00 Test Item Value Reference Range Interpretation Comments Creatinine Lvl (test code = Creatinine 1.32 0.50-0.99 Lvl) [facility]2020-08-06 14:47:00 Test Item Value Reference Range Interpretation Comments eGFR NON-AFR. BOLIVIAN (test code = 43 eGFR NON-AFR. BOLIVIAN) [facility]2020-08-06 14:47:00 Test Item Value Reference Range Interpretation Comments eGFR (test code = eGFR 50 ) [place] 491980-08-06 14:47:00 Test Item Value Reference Range Interpretation Comments B/C Ratio (test code = B/C Ratio) 18 6-22 [place] 491980-08-06 14:47:00 Test Item Value Reference Range Interpretation Comments Sodium Lvl (test code = Sodium Lvl) 138 135-146 [place] 491980-08-06 14:47:00 Test Item Value Reference Range Interpretation Comments Potassium Lvl (test code = Potassium 4.4 3.5-5.3 Lvl) [place] 491980-08-06 14:47:00 Test Item Value Reference Range Interpretation Comments Chloride Lvl (test code = Chloride Lvl) 102 98-110 [facility]2020-08-06 14:47:00 Test Item Value Reference Range Interpretation Comments CO2 (test code = CO2) 30 20-32 [facility]2020-08-06 14:47:00 Test Item Value Reference Range Interpretation Comments Calcium Lvl (test code = Calcium Lvl) 9.4 8.6-10.4 [place] 491980-08-06 14:47:00 Test Item Value Reference Range Interpretation Comments Phosphorus (test code = Phosphorus) 4.8 2.5-4.5 [facility]2020-08-06 14:47:00 Test Item Value Reference Range Interpretation Comments Albumin Lvl (test code = Albumin Lvl) 3.9 3.6-5.1 [facility]EkazbunLYYISTHQEU6545-35-33 14:47:00 Test Item Value Reference Range Interpretation Comments Plt Count Estimated (test code = DECREASED Plt Count Estimated) [facility] HospitalPwpcqdbMJVZDGHRCC8866-61-33 14:47:00 Test Item Value Reference Range Interpretation Comments WBC X 10x3 (test code = WBC X 10x3) 7.2 3.8-10.8 [place] 840820-08-06 14:47:00 Test Item Value Reference Range Interpretation Comments RBC X 10x6 (test code = RBC X 10x6) 3.71 3.80-5.10 [facility] HospitalFbcyeexUQGQXGZKKM4494-96-19 14:47:00 Test Item Value Reference Range Interpretation Comments Hgb (test code = Hgb) 10.7 11.7-15.5 [facility] HospitalPgnskioBZGFDFCVGD0610-99-66 14:47:00 Test Item Value Reference Range Interpretation Comments Hct (test code = Hct) 33.9 35.0-45.0 [place] 840820-08-06 14:47:00 Test Item Value Reference Range Interpretation Comments MCV (test code = MCV) 91.4 80.0-100.0 [place] [address]-08-06 14:47:00 Test Item Value Reference Range Interpretation Comments MCH (test code = MCH) 28.8 pg 27.0-33.0 [place] [address]-08-06 14:47:00 Test Item Value Reference Range Interpretation Comments MCHC (test code = MCHC) 31.6 32.0-36.0 [place] 840820-08-06 14:47:00 Test Item Value Reference Range Interpretation Comments RDW (test code = RDW) 13.9 11.0-15.0 [facility] HospitalYysozqrLCRRUNZXEU9714-23-54 14:47:00 Test Item Value Reference Range Interpretation Comments Platelet (test code = Platelet) 110 140-400 [facility] HospitalNiqgwsvDTYSSYGNDH6476-69-57 14:47:00 Test Item Value Reference Range Interpretation Comments MPV (test code = MPV) 11.7 7.5-12.5 [facility] HospitalApvxpehNBPMYTXIHX4417-88-86 14:47:00 Test Item Value Reference Range Interpretation Comments Neutrophils # (test code = Neutrophils 5414 6734-1310 #) [facility] HospitalIapombpYXWZKUYEEJ4018-45-47 14:47:00 Test Item Value Reference Range Interpretation Comments Lymphocytes # (test code = Lymphocytes 0000 974-8689 #) [facility] HospitalRlduuhwKBBAVKSIRJ0400-68-25 14:47:00 Test Item Value Reference Range Interpretation Comments Monocytes # (test code = Monocytes #) 461 200-950 [facility] HospitalGjqzgbkOOTNGMVBDG0604-11-84 14:47:00 Test Item Value Reference Range Interpretation Comments Eosinophils # (test code = Eosinophils 122 15-500 #) [facility] HospitalMrbaeclZGVTVVMHXP8613-25-30 14:47:00 Test Item Value Reference Range Interpretation Comments Basophils # (test code 50 See_Comment [Aut omated message] The = Basophils #) system which generated this result tra nsmitted reference range : <=200. The reference r edy was not used to int erpret this result as normal/abnormal . [facility] HospitalPygxhkbLHEVZWTCDF4059-71-15 14:47:00 Test Item Value Reference Range Interpretation Comments Segs (test code = Segs) 75.2 [facility] HospitalRtrkmlzEQCGGNEBVD3290-84-52 14:47:00 Test Item Value Reference Range Interpretation Comments Lymphocytes (test code = Lymphocytes) 16.0 [facility] HospitalBedcgovLDTEHYOQTK8592-42-02 14:47:00 Test Item Value Reference Range Interpretation Comments Monocytes (test code = Monocytes) 6.4 [place] 840820-08-06 14:47:00 Test Item Value Reference Range Interpretation Comments Eosinophils (test code = Eosinophils) 1.7 [facility] HospitalIuoqalyDHDEJDJIQN3363-14-08 14:47:00 Test Item Value Reference Range Interpretation Comments Basophils (test code = Basophils) 0.7 [facility] JDKRPTQ8600-69-92 14:47:00 Test Item Value Reference Range Interpretation Comments Result 2 (Urine Culture) See Result Comment (test code = Result 2 (Urine Culture)) [facility] [id number] 14:47:00 Test Item Value Reference Range Interpretation Comments UA Color (test code = UA Color) YELLOW [facility] [id number] 14:47:00 Test Item Value Reference Range Interpretation Comments UA Turbidity (test code = UA CLOUDY Turbidity) [facility] [id number] 14:47:00 Test Item Value Reference Range Interpretation Comments UA Spec Grav (test code = UA Spec 1.017 1 1.001-1.035 Grav) [facility] [id number] 14:47:00 Test Item Value Reference Range Interpretation Comments UA pH (test code = UA pH) 5.5 1 5.0-8.0 [facility] [id number] 14:47:00 Test Item Value Reference Range Interpretation Comments UA Glucose (test code = UA Glucose) NEGATIVE [facility] [id number] 14:47:00 Test Item Value Reference Range Interpretation Comments UA Bili (test code = UA Bili) NEGATIVE [facility] [id number] 14:47:00 Test Item Value Reference Range Interpretation Comments UA Ketones (test code = UA Ketones) NEGATIVE [facility] [id number] 14:47:00 Test Item Value Reference Range Interpretation Comments UA Blood (test code = UA Blood) 1+ [facility] UNWFM2087-28-21 14:47:00 Test Item Value Reference Range Interpretation Comments UA Protein (test code = UA Protein) 1+ [facility] [id number] 14:47:00 Test Item Value Reference Range Interpretation Comments UA Nitrite (test code = UA Nitrite) POSITIVE [facility] [id number] 14:47:00 Test Item Value Reference Range Interpretation Comments UA Leuk Est (test code = UA Leuk Est) 2+ [facility] [id number] 14:47:00 Test Item Value Reference Range Interpretation Comments UA WBC (test code = UA WBC) > OR = 60 [facility] [id number] 14:47:00 Test Item Value Reference Range Interpretation Comments UA RBC (test code = UA RBC) 0-2 [facility] [id number] 14:47:00 Test Item Value Reference Range Interpretation Comments UA Sq Epi (test code = UA Sq Epi) NONE SEEN [facility] [id number] 14:47:00 Test Item Value Reference Range Interpretation Comments UA Bacteria (test code = UA Bacteria) MANY [facility] [id number] 14:47:00 Test Item Value Reference Range Interpretation Comments UA Hyal Cast (test code = UA Hyal NONE SEEN Cast) [facility] [id number] 14:47:00 Test Item Value Reference Range Interpretation Comments UA Reflex (test code CULTURE INDICATED - = UA Reflex) RESULTS TO FOLLOW [facility] [id number] 14:47:00 Test Item Value Reference Range Interpretation Comments U Creat mg/dL (test code = U Creat 114 20-275 mg/dL) [facility] [id number] 14:47:00 Test Item Value Reference Range Interpretation Comments U Alb (test code = U Alb) 16.7 [facility] [id number] 14:47:00 Test Item Value Reference Range Interpretation Comments U Alb/Crea (test code = U Alb/Crea) 146 [facility] PROTEIN ELECTROPHORESIS-24HR [id number] 08:01:00 Test Item Value Reference Range Interpretation Comments CREATININE, 24 HOUR 1.45 g/24 h 0.50-2.15 URINE (test code = 37558250) PROTEIN/CREATININE 292 mg/g creat < OR = 114 H RATION (test code = 95092026) PROTEIN, TOTAL 24 HR UR 424 mg/24 h <150 H TEST PERFORMED (test code = 78095047) AT: [facility] [id number] [place], [place] [address]MAO, KAJAL [address]TQVLRNIECY BOYCE MD ALBUMIN (test code = 35 % 46787865) OWJEN-4-EEQMLJAOD (test 10 % code = 96445553) YCYQK-5-VJHHWBYJL (test 12 % code = 34438608) BETA GLOBULINS (test 25 % code = 04162848) GAMMA GLOBULINS (test 18 % code = 56586011) INTERPRETATION (test Albumin and code = 40729540) various dann bulin fractions detected on proteinelectrop ho resis. No abnormal protei n bands (Bence-Jonespro te inuria) detected.TEST PERFORMED AT:[facility] [address] [address]QCDHDNIECY BOYCE MD NEUTROPHIL CYTOPLASMIC [id number] 05:19:00 Test Item Value Reference Range Interpretation Comments ANCA SCREEN (test NEGATIVE NEGATIVE ANCA Scree n includes code = 13807975) evaluation for p-ANCA, c-ANCA andatypi alexandre p-ANCA. [...] ofpat ients with Crohn's disease .TEST PERFORMED AT:[facility] [id number] [place] [address]TZYNFOSCAR EISENBERG MD,PHD ,MICHI COMPREHENSIVE METABOLIC [id number] 06:25:00 Test Item Value Reference Range Interpretation [...] MORPH (test code = RBCMOR) NORMAL URINE [id number] 09:53:00 Test Item Value Reference Range Interpretation [...] = VD) 36.0 ng/mL 30.0-100.0 SERUM PROTEIN [id number] 06:20:00 Test Item Value Reference Range Interpretation Comments PROTEIN TOTAL (test 5.7 g/dL 6.1-8.1 L TEST PER FORMED AT:QUEST code = 11709246) DI[facility] -[id number] [facility] [place] [address]AHIUVNIECY BOYCE MD ALBUMIN (test code = 3.2 g/dL 3.8-4.8 L 75776331) KLFAD-9-RAZBSDPDY 0.4 g/dL 0.2-0.3 H (test code = 55626450) BSUPY-4-DEBUINIGA 0.8 g/dL 0.5-0.9 (test code = 32712302) BETA 1 GLOBULIN (test 0.5 g/dL 0.4-0.6 code = 67867939) BETA 2 GLOBULIN (test 0.2 g/dL 0.2-0.5 code = 10244607) GAMMA GLOBULINS (test 0.6 g/dL 0.8-1.7 L code = 45180918) INTERPRETATION (test Pattern consistent with code = 32226458) an acute ph ase reactionConsist ent with hypogammaglobul inemia. Serum free ligh tchains or urine immuno fixation should be consi dered ifplasma cell d yscrasias are a possible clinicaldiagnos is.TEST PERFORMED AT:[facility] [id number] [facility] [place] [address]IXFPGNIECY BOYCE MD [id number] 06:13:00 Test Item Value Reference Range Interpretation Comments MAGNESIUM (test code = 48A) 1.7 mg/dL 1.8-2.4 L COMPREHENSIVE METABOLIC [id number] 06:13:00 Test Item Value Reference Range Interpretation [...] (test code = RBCMOR) NORMAL COMPREHENSIVE METABOLIC [id number] 05:30:00 Test Item Value Reference Range Interpretation [...] (test code = RBCMOR) NORMAL URINALYSIS WITH [id number] 06:44:00 Test Item Value Reference Range Interpretation [...] code = USPERM) /HPF NONE COMPREHENSIVE METABOLIC [id number] 05:24:00 Test Item Value Reference Range Interpretation [...] = RBCMOR) NORMAL U/S KIDNEY (RENAL)2019-06-06 23:20:42LOCATION: [id number]: 63-year-old female who presents with acute nontraumatic [...] jet was observed onthe color flow study.TROPONIN [id number] 07:14:00 Test Item Value Reference Range Interpretation Comments TROPONIN I (test code = A84) <0.015 ng/mL 0.000-0.045 COMPREHENSIVE METABOLIC [id number] 05:28:00 Test Item Value Reference Range Interpretation [...] (test code = RBCMOR) NORMAL COMPREHENSIVE METABOLIC [id number] 04:58:00 Test Item Value Reference Range Interpretation [...] (test code = MDIFF) NO NO CARDIAC [id number] 23:10:00 Test Item Value Reference Range Interpretation Comments TROPONIN I (test code = A84) <0.015 ng/mL 0.000-0.045 U/S VENOUS DOPPLER BALDO LOW [id number] 22:23:14LOCATION: [id number]: 63-year-old female who presents with bilateral leg swelling.COMMENT: [facility] imaging of the venous anatomy in [...] thrombosis in either of thispatient's legs. CARDIAC [id number] 16:50:00 Test Item Value Reference Range Interpretation Comments TROPONIN I (test code = A84) <0.015 ng/mL 0.000-0.045 BRAIN NATRIURETIC [id number] 14:39:00 Test Item Value Reference Range Interpretation Comments proBNP (test code = PBNP) 1337 pg/mL 0-125 H THYROID PANEL/SCREEN (TSH)2019-06-04 12:05:00 Test Item Value Reference Range Interpretation Comments TSH (test code = A57) 0.989 uIU/mL 0.358-3.740 [id number] 12:02:00 Test Item Value Reference Range Interpretation Comments CPK (test code = 32A) 98 IU/L 26-192 AMYLASE AND [id number] 12:02:00 Test Item Value Reference Range Interpretation Comments AMYLASE (test code = 10A) 19 U/L 28-100 L LIPASE (test code = 60A) 67 IU/L 73-393 L COMPREHENSIVE METABOLIC [id number] 12:02:00 Test Item Value Reference Range Interpretation [...] code = 31A) 41 IU/L <=78 TROPONIN [id number] 11:57:00 Test Item Value Reference Range Interpretation Comments TROPONIN I (test code = A84) <0.015 ng/mL 0.000-0.045 XR CHEST 1 VIEW [id number] 11:55:22EXAM: XR CHEST 1 VIEW PORTABLE.LOCATION: D4.HISTORY: [id number]: Chest pain.COMPARISON: Radiograph dated 05/12/2019.TECHNIQUE: Single AP view of the chest was obtained. FINDINGS:The heart is enlarged in size. Small left pleural effusion and left basilaropacities are present. There is elevation of the right hemidiaphragm. No acuteosseous abnormality is identified.IMPRESSION:Small left pleural effusion with left basilar opacities, which may representatelectasis or infiltrates.Cardiomegaly. PRO TIME AND [id number] 11:43:00 Test Item Value Reference Range Interpretation [...] (test code = RBCMOR) NORMAL CBC WITH [id number] 15:29:00 Test Item Value Reference Range Interpretation [...] NORMAL (1.5-3 um) NORMAL PLTMOR) BASIC METABOLIC [id number] 15:26:00 Test Item Value Reference Range Interpretation [...] code = 09D) 9.2 mg/dL 8.3-9.5 CARDIAC [id number] 06:04:00 Test Item Value Reference Range Interpretation Comments TROPONIN I (test code = A84) <0.015 ng/mL 0.000-0.045 BASIC METABOLIC [id number] 05:52:00 Test Item Value Reference Range Interpretation [...] MORPH (test code = RBCMOR) NORMAL CARDIAC [id number] 23:08:00 Test Item Value Reference Range Interpretation Comments TROPONIN I (test code = A84) <0.015 ng/mL 0.000-0.045 CT DISSECTION [id number] 19:26:35Exam: CT thorax PE protocol.Location: 12History: [id number]: Chest painTechnique: Enhanced spiral slices were taken [...] code = A57) 0.706 uIU/mL 0.358-3.740 LIVER [id number] 18:28:00 Test Item Value Reference Range Interpretation [...] = 31A) 21 IU/L <=78 BRAIN NATRIURETIC [id number] 18:19:00 Test Item Value Reference Range Interpretation Comments proBNP (test code = PBNP) 518 pg/mL 0-125 H [id number] 18:15:00 Test Item Value Reference Range Interpretation Comments MAGNESIUM (test code = 48A) 1.9 mg/dL 1.8-2.4 [id number] 17:40:00 Test Item Value Reference Range Interpretation Comments D-DIMER (test code = <200 ng/mL D-DU 0-234 DDI) D-DIMER COMMENT (test *Level to rule out code = DDCOM) DVT or PE: <235 ng/mL D-DU* CARDIAC [id number] 17:31:00 Test Item Value Reference Range Interpretation Comments TROPONIN I (test code = A84) <0.015 ng/mL 0.000-0.045 BASIC METABOLIC [id number] 17:27:00 Test Item Value Reference Range Interpretation [...] LMW Heparin. Order Code is ANTI-XA PROTHROMBIN [id number] 17:26:00 Test Item Value Reference Range Interpretation Comments PT (test code = 12.0 s 9.8-13.6 TT) INR (test code = 1.1 INR) INRH (test code = SUGGESTED INRH) THERAPEUTIC RANGE FOR INR: 2.5 - 3.5 For Patients with Prosthetic Valves or Patients with recurrent Thromboembolic Events 2.0 - 3.0 For Most Other Applications XR CHEST 1 VIEW [id number] 17:04:28Portable AP chest, 1 viewLocation Code: [id number] HISTORY: Chest painCOMPARISON: NoneCOMMENT: Mild atelectasis is present within the lung bases. The costophrenic angles aresharp. The cardiomediastinalsilhouette is unremarkable. The bones are intact.IMPRESSION: Mild bibasilar atelectasis. Otherwise, no acute abnormalityCHEM [id number] 16:51:00 Test Item Value Reference Range Interpretation Comments Creatinine Lvl (test code = Creatinine 1.15 0.50-1.40 Lvl) [facility]2017-01-24 16:51:00 Test Item Value Reference Range Interpretation Comments BUN (test code = BUN) 16 7-22 [facility]2017-01-24 16:51:00 Test Item Value Reference Range Interpretation Comments Chloride Lvl (test code = Chloride Lvl) 109 95-109 [facility]2017-01-24 16:51:00 Test Item Value Reference Range Interpretation Comments Potassium Lvl (test code = Potassium 4.3 3.5-5.1 Lvl) [facility]2017-01-24 16:51:00 Test Item Value Reference Range Interpretation Comments Sodium Lvl (test code = Sodium Lvl) 144 135-145 [facility]2017-01-24 16:51:00 Test Item Value Reference Range Interpretation Comments CO2 (test code = CO2) 28 24-32 [facility]2017-01-24 16:51:00 Test Item Value Reference Range Interpretation Comments Calcium Lvl (test code = Calcium Lvl) 8.4 8.5-10.5 [facility]2017-01-24 16:51:00 Test Item Value Reference Range Interpretation Comments AGAP (test code = AGAP) 11.3 10.0-20.0 [facility]2017-01-24 16:51:00 Test Item Value Reference Range Interpretation Comments Glucose Lvl (test code = Glucose Lvl) 109 70-99 [facility]2017-01-24 16:51:00 Test Item Value Reference Range Interpretation Comments eGFR (test code = eGFR) 52 [facility]
[2021-12-14 14:04] LABS: Absolute Lymphocytes (CBC) 1.4 K/uL (0.7-4.9); Lymphocytes % 18.2 % (15.3-44.8); MPV 7.9 fL (7.6-11.3)
[2021-12-14 15:02] LABS: Magnesium 2.7 mg/dL (1.8-2.4); Potassium 5.5 mmol/L (3.5-5.1)
--- NOTE | 2021-12-14 16:05 | ER ---
Nurse's Notes [facility] Name: Kassie De Jesus Age: 66 yrs Sex: Female : 1955 Arrival Date: 12/14/2021 Time: 12:33 Bed 26 Private MD: Rip Teran Diagnosis: End stage renal disease Presentation: 12/14 13:07 Chief complaint: Patient states: she was told to come to the ED from her PCP who ap3 informed the patient her blood draw showed she had high potassium. Patient stated the blood was drawn during dialysis yesterday. She is a MWF dialysis patient. Coronavirus screen: At this time, the client does not indicate any symptoms associated with coronavirus-19. Ebola Screen: No symptoms or risks identified at this time. Initial Sepsis Screen: Does the patient meet any 2 criteria? No. Patient's initial sepsis screen is negative. Does the patient have a suspected source of infection? No. Patient's initial sepsis screen is negative. Risk Assessment: Do you want to hurt yourself or someone else? Patient reports no desire to harm self or others. Onset of symptoms was December 14, 2021. 13:07 Method Of Arrival: Ambulatory ap3 13:07 Acuity: LENI 3 ap3 Triage Assessment: 13:09 General: Appears in no apparent distress. Behavior is calm, cooperative, appropriate ap3 for age. Pain: Denies pain. Neuro: No deficits noted. Level of Consciousness is awake, alert, obeys commands, Oriented to person, place, time, situation, Appropriate for age Gait is uses walker. Cardiovascular: Denies chest pain. Respiratory: Airway is patent Respiratory effort is even, unlabored, Respiratory pattern is regular, symmetrical. 13:09 Derm:. ap3 Historical: - Allergies: 13:06 cefepime; ap3 13:06 PENICILLINS; ap3 13:06 QUINOLONES; ap3 13:06 Codeine; ap3 - PMHx: 13:06 Atrial fibrillation; Dialysis; High Cholesterol; Hypertensive disorder; stage 4 kidney ap3 failure; 13:08 Congestive heart failure; ap3 - Immunization history:: Client reports having NOT received the Covid vaccine. Pneumococcal vaccine is up to date, Flu vaccine is up to date. - Social history:: Smoking status: Patient denies any tobacco usage or history of. - Family history:: not pertinent. Screenin:10 Abuse screen: Denies threats or abuse. Nutritional screening: No deficits noted. ap3 Tuberculosis screening: No symptoms or risk factors identified. 15:43 Fall Risk None identified. lr4 Assessment: 13:54 General: Appears in no apparent distress. comfortable, Behavior is calm, cooperative. lr4 Neuro: No deficits noted. Cardiovascular: Denies chest pain, lightheadedness, Heart tones S1 S2 Capillary refill < 3 seconds. Respiratory: Reports Airway is patent Respiratory effort is Respiratory pattern is regular, Pt on home 02 at 2 L. Musculoskeletal: No deficits noted. 13:54 Cardiovascular: Rhythm is atrial fibrillation With PVC's. lr4 16:33 General: pt departed ed ambulatory with and all personal effects, pt in nad. lr4 Vital Signs: 13:07 BP 113 / 72; Pulse 79; Resp 17; Temp 97.9; Pulse Ox 99% on 2 lpm NC; Weight 105.69 kg; ap3 Height 5 ft. 7 in. (170.18 cm); 14:00 BP 109 / 55; Pulse 80; Resp 18; Pulse Ox 100% on 2 lpm NC; lr4 14:16 BP 103 / 52; Pulse 71; Resp 17; Pulse Ox 100% on 2 lpm NC; lr4 15:42 BP 105 / 55; Pulse 64; Resp 18; Pulse Ox 100% ; lr4 16:32 BP 116 / 71; Pulse 71; Resp 18; Pulse Ox 99% ; lr4 13:07 Body Mass Index 36.49 (105.69 kg, 170.18 cm) ap3 ED Course: 12:33 Patient arrived in ED. as 12:33 Rip Teran MD is Private Physician. as 13:08 Triage completed. ap3 13:10 Arm band placed on right wrist. ap3 13:25 Bruna Forde MD is Attending Physician. ma2 13:53 Lidia Stephenson, ARMANDO is Primary Nurse. lr4 13:53 Basic Metabolic Panel Sent. lr4 13:53 CBC with Diff Sent. lr4 13:53 Magnesium Sent. lr4 13:54 Inserted saline lock: 20 gauge in right antecubital area, using aseptic technique. lr4 14:15 Basic Metabolic Panel Sent. lr4 15:42 No provider procedures requiring assistance completed. lr4 16:32 Patient has correct armband on for positive identification. Call light in reach. Side lr4 rails up X 1. Adult w/ patient. 16:32 IV discontinued. lr4 Administered Medications: No medications were administered Outcome: 15:43 Condition: good lr4 16:04 Discharge ordered by . ma2 16:32 Discharged to home ambulatory. lr4 16:32 Discharge instructions given to patient, family. 16:33 Patient left the ED. lr4 Signatures: Jeannette Porras Mohammad, MD MD ma2 Chelesy Brower RN RN ap3 Lidia Stephenson RN RN lr4
--- NOTE | 2021-12-14 16:05 | EDPHYS ---
Physician Documentation [facility] Name: Kassie De Jesus Age: 66 yrs Sex: Female : 1955 Arrival Date: 12/14/2021 Time: 12:33 Bed 26 Private MD: Rip Teran ED Physician Bruna Forde HPI: 12/14 13:53 This 66 yrs old Female presents to ER via Ambulatory with complaints of Abnormal Lab ma2 Results. 13:53 This is an ESRD patient who is on scheduled hemodialysis, had dialysis yesterday. After ma2 dialysis today due to routine blood work were potassium came back 7. PCP called her today to go to ER to get a recheck of her potassium. Patient does not have any symptoms.. Historical: - Allergies: 13:06 cefepime; ap3 13:06 PENICILLINS; ap3 13:06 QUINOLONES; ap3 13:06 Codeine; ap3 - PMHx: 13:06 Atrial fibrillation; Dialysis; High Cholesterol; Hypertensive disorder; stage 4 kidney ap3 failure; 13:08 Congestive heart failure; ap3 - Immunization history:: Client reports having NOT received the Covid vaccine. Pneumococcal vaccine is up to date, Flu vaccine is up to date. - Social history:: Smoking status: Patient denies any tobacco usage or history of. - Family history:: not pertinent. ROS: 13:53 Constitutional: Negative for fever, chills, and weight loss. ma2 13:53 All other systems are negative. Exam: 13:53 Constitutional: This is a well developed, well nourished patient who is awake, alert, ma2 and in no acute distress. Head/Face: Normocephalic, atraumatic. Eyes: Pupils equal round and reactive to light, extra-ocular motions intact. Lids and lashes normal. Conjunctiva and sclera are non-icteric and not injected. Cornea within normal limits. Periorbital areas with no swelling, redness, or edema. ENT: Nares patent. No nasal discharge, no septal abnormalities noted. Tympanic membranes are normal and external auditory canals are clear. Oropharynx with no redness, swelling, or masses, exudates, or evidence of obstruction, uvula midline. Mucous membranes moist. Neck: Trachea midline, no thyromegaly or masses palpated, and no cervical lymphadenopathy. Supple, full range of motion without nuchal rigidity, or vertebral point tenderness. No Meningismus. Chest/axilla: Left upper chest dialysis catheter, otherwise normal chest wall appearance and motion. Nontender with no deformity. No lesions are appreciated. Cardiovascular: Regular rate and rhythm with a normal S1 and S2. No gallops, murmurs, or rubs. Normal PMI, no JVD. No pulse deficits. Respiratory: Lungs have equal breath sounds bilaterally, clear to auscultation and percussion. No rales, rhonchi or wheezes noted. No increased work of breathing, no retractions or nasal flaring. Abdomen/GI: Soft, non-tender, with normal bowel sounds. No distension or tympany. No guarding or rebound. No evidence of tenderness throughout. MS/ Extremity: Pulses equal, no cyanosis. Neurovascular intact. Full, normal range of motion. Neuro: Awake and alert, GCS 15, oriented to person, place, time, and situation. Cranial nerves II-XII grossly intact. Motor strength 5/5 in all extremities. Sensory grossly intact. Cerebellar exam normal. Normal gait. Vital Signs: 13:07 BP 113 / 72; Pulse 79; Resp 17; Temp 97.9; Pulse Ox 99% on 2 lpm NC; Weight 105.69 kg; ap3 Height 5 ft. 7 in. (170.18 cm); 14:00 BP 109 / 55; Pulse 80; Resp 18; Pulse Ox 100% on 2 lpm NC; lr4 14:16 BP 103 / 52; Pulse 71; Resp 17; Pulse Ox 100% on 2 lpm NC; lr4 15:42 BP 105 / 55; Pulse 64; Resp 18; Pulse Ox 100% ; lr4 16:32 BP 116 / 71; Pulse 71; Resp 18; Pulse Ox 99% ; lr4 13:07 Body Mass Index 36.49 (105.69 kg, 170.18 cm) ap3 MDM: 16:02 Differential Diagnosis Hyperkalemia versus hyperkalemia versus electrolyte abnormality, ma2 lab work resulted and shows potassium 5.5, I explained to patient that prior result of potassium of 7 is likely false due to thrombosed blood, she has dialysis tomorrow, patient has no symptoms at this time. Data reviewed: vital signs, nurses notes. Counseling: I had a detailed discussion with the patient and/or guardian regarding: the historical points, exam findings, and any diagnostic results supporting the discharge/admit diagnosis, the presence of at least one elevated blood pressure reading (>120/80) during this emergency department visit, the need for outpatient follow up. Response to treatment: the patient's symptoms have markedly improved after treatment. 16:04 Patient medically screened. hi12/14 13:29 Order name: Basic Metabolic Panel; Complete Time: 15:12 12/14 13:29 Order name: CBC with Diff; Complete Time: 15:12 12/14 13:29 Order name: Magnesium; Complete Time: 15:12 12/14 13:29 Order name: EKG; Complete Time: 13:29 12/14 13:29 Order name: Cardiac monitoring; Complete Time: 14:15 12/14 13:29 Order name: EKG - Nurse/Tech; Complete Time: 14:15 hi12/14 13:29 Order name: IV Saline Lock; Complete Time: 13:53 12/14 13:29 Order name: Labs collected and sent; Complete Time: 13:53 12/14 13:29 Order name: O2 Per Protocol; Complete Time: 13:53 hi12/14 13:29 Order name: O2 Sat Monitoring; Complete Time: 13:53 Administered Medications: No medications were administered Disposition Summary: 12/14/21 16:04 Discharge Ordered Location: Home ma2 Condition: Stable ma2 Diagnosis - End stage renal disease ma2 Followup: ma2 - With: Private Physician - When: Tomorrow - Reason: If symptoms return Discharge Instructions: - Discharge Summary Sheet ma2 - Chronic Kidney Disease, Adult, [id number] ma2 Forms: - Medication Reconciliation Form ma2 - Thank You Letter ma2 - Antibiotic Education ma2 - Prescription Opioid Use ma2 Signatures: Dispatcher [employer] EDBruna Lama MD MD ma2 Chelsey Brower RN RN ap3
[2021-12-14 17:01] VITALS: TEMP 97.9
[2021-12-14 17:07] VITALS: BP 116/71; O2SAT 99
== END 2021-12-14 16:33 | disposition home or self-care (01) ==
LOC: ER 12:31
DX: I13.2 Hypertensive heart and chronic kidney disease with heart failure and with stage 5 chronic kidney disease, or end stage renal disease (principal); Z88.0 Allergy status to penicillin; Z88.5 Allergy status to narcotic agent; Z88.8 Allergy status to other drugs, medicaments and biological substances
CPT/HCPCS: 36415; 80048; 83735; 85025; 99284

== ENCOUNTER 2022-01-01 12:53 | Emergency (ER) | payer OTHER, BC ==
--- OUTSIDE RECORDS SUMMARY | 2022-01-01 12:59 | XMS REPORT | Continuity of Care Document ---
:1955 Author Organization [facility] t Address [address] [place] [address] Care Team Providers Name Role Phone SUDARSHAN Attending Clinician Unavailable CAMILLE Attending Clinician Unavailable ADRIANA Attending Clinician Unavailable MD LONNIE MARTÍNEZ Attending [...] Mem oria 02-14 12:03:00 l NATALYA 00:00: [place] 00 Active 02/14/2021 [place] COLON Diagnosis Active 2016-11-17 Mem oria CANCER 11-14 05:49:00 l SCREENING- COLON 00:00: Karen nn Z12.11 CANCER 00 SCREENING- Z12.11 Active 11/14/2016 [place] R92.1 - Diagnosis Active 2016-04-16 De moria MAMMOGRAPH 4-12 15:55:00 l IC R92.1 - 00:01: Denis CALCIFCN MAMMOGRAPH 00 FOUND ON IC CALCIFCN FOUND ON Active 02/01/2016 [facility] [place] Z12.31 - Diagnosis Active 2015-11-30 M emoria ENCNTR - 07:08:00 l SCREEN Z12.31 - 00:01: Vicente davis MAMMOGRAM ENCNTR 00 FOR MA SCREEN MAMMOGRAM FOR MA Active 11/12/2015 [facility] [place] RT WRIST Diagnosis Active 2016-12-28 M emoria DISTAL 1- 02:03:00 l RADIUS RT WRIST 09:00: Vicente davis CLSD FX DISTAL 00 RADIUS CLSD FX Active 10/22/2015 [facility] Abnormal Problem Active 2021-09-15 [facility] oria glucose 04-22 22:17:41 l level Abnormal 00:00: Vicente davis (finding) glucose 00 level (finding) Active 04/22/2015 Problem 09/15/2021 Data migrated from [employer] on 04/28/15. Medical Group, ANTHONY Soto, [facility] [place], [facility], [place] Lymphedema Problem Active 2019-11-17 M emoria (disorder) 2- 00:38:51 l 00:00: Denis Lymphedema 00 (disorder) Active 11/25/2013 Problem 11/17/2019 Data migrated from [employer] on 03/20/15. [facility], ANTHONY Soto, [facility] [place], [facility], [place] Obstructiv Problem Active 2021-09-15 M emoria e sleep 2-04 22:17:41 l apnea 00:00: Denis syndrome Obstructiv 00 (disorder) e sleep apnea syndrome (disorder) Active 11/25/2013 Problem 09/15/2021 Data migrated from [employer] on 03/20/15. [facility] Group, ANTHONY Soto, OP[facility] [place], [facility], [place] Hypothyroi Problem Active 2019-08-09 M emoria dism 4-24 21:25:36 l (disorder) 00:00: Vicente n Hypothyroi 00 dism (disorder) Active 02/12/2013 Problem 08/09/2019 Data migrated from [employer] on 03/20/15. Medical Group,MH OPID Brittany, OPID [place], [facility], [place] Depressive Problem Active 2021-09-15 M emoria disorder 4-24 22:17:41 l (disorder) 00:00: Vicente n Depressive 00 disorder (disorder) Active 02/12/2013 Problem 09/15/2021 [facility], OPID Brittany, OPID [place], [facility], [place] Obesity Problem Active 2016-05-15 Turner arnoldo (disorder) 8-20 00:23:22 l Obesity 00:00: Denis (disorder) 00 Active 06/10/2012 Problem 05/15/2016 Data migrated from [employer] on 03/20/15. MH OPID Brittany, OPID [place], [facility] Cobalamin Problem Active 2021-09-15 Me moria deficiency 7- 22:17:41 l (disorder) 00:00: Vicente n Cobalamin 00 deficiency (disorder) Active 05/01/2012 Problem 09/15/2021 Data migrated from [employer] on 03/20/15. Medical [facility] OP[facility] Brittany, OPID [place], [facility], [place] Hypertensi Problem Active 2016-05-15 M emoria ve episode 7-10 00:23:22 l (disorder) 00:00: Vicente n Hypertensi 00 ve episode (disorder) Active 04/30/2012 Problem 05/15/2016 Data migrated from [employer] on 03/20/15. MH OP[facility] Brittany, OP[facility] [place], [facility] Pain in Problem 2016-01-01 Turner arnoldo wrist 05:02:18 l (finding) Pain in Herm connie wrist (finding) Problem 01/01/2016 [facility] Calcificat Problem Resolve 2021-09-15 Memoria ion of d 22:17:41 l breast [place] (finding) Calcificat ion of breast (finding) Resolved Problem 09/15/2021 [facility], [facility]ID Brittany, OPID [place], [facility], [place] Dysuria Problem Resolve 2021-09-15 Mem oria (finding) d 22:17:41 l Dysuria Denis (finding) Resolved Problem 09/15/2021 Medical Group, [facility] [place], [place] Acute Problem Active 2020-02-08 Memor ia urinary 22:36:35 l tract Acute Denis infection urinary (disorder) tract infection (disorder) Active Problem 02/08/2020 [facility] Group Chronic Problem Active 2020-02-08 Turner arnoldo renal 22:36:35 l impairment Chronic [place] (disorder) renal impairment (disorder) Active Problem 02/08/2020 [facility], ANTHONY Soto, OPID [place], [facility], [place] Diabetes Problem Active 2020-06-24 Mem oria mellitus 23:27:54 l (disorder) Diabetes He rmann mellitus (disorder) Active Problem 06/24/2020 [facility] Group, [facility] [place] Urinalysis Problem Active 2021-09-15 M emoria = abnormal 22:17:41 l (finding) Denis Urinalysis = abnormal (finding) Active Problem 09/15/2021 [facility], [facility] [place], [place] Atrial Problem Active 2021-09-15 Memor ia fibrillati 22:17:41 l on Atrial [place] (disorder) fibrillati on (disorder) Active Problem 09/15/2021 [facility], [facility] [place], [place] Benign Problem Active 2021-09-15 Memor ia essential 22:17:41 l hypertensi Benign Herm connie on essential (disorder) hypertensi on (disorder) Active Problem 09/15/2021 [facility], ANTHONY Cervantesy, OPID [place], [facility], [place] Cardiorena Problem Active 2021-09-15 M emoria l syndrome 22:17:41 l (disorder) Vicente n Cardiorena l syndrome (disorder) Active Problem 09/15/2021 [facility], [facility] [place], [place] Chronic Problem Active 2021-09-15 Turner arnoldo kidney 22:17:41 l disease Chronic Vicente n (disorder) kidney disease (disorder) Active Problem 09/15/2021 [facility], [facility] [place], [place] Chronic Problem Active 2021-09-15 Turner arnoldo kidney 22:17:41 l disease Chronic Vicente n stage 3 kidney (disorder) disease stage 3 (disorder) Active Problem 09/15/2021 [facility], [facility] [place], [place] Chronic Problem Active 2021-09-15 Turner arnoldo pain 22:17:41 l (finding) Chronic Herm connie pain (finding) Active Problem 09/15/2021 [facility], [facility] [place], [place] Dependence Problem Active 2021-09-15 M emoria on 22:17:41 l supplement Vicente n al oxygen Dependence (finding) on supplement al oxygen (finding) Active Problem 09/15/2021 [facility], [place] Edema of Problem Active 2021-09-15 Mem oria lower 22:17:41 l extremity Edema of [place] (finding) lower extremity (finding) Active Problem 09/15/2021 [facility], [facility] [place], [place] Hyperlipid Problem Active 2021-09-15 M emoria emia 22:17:41 l (disorder) Vicente n Hyperlipid emia (disorder) Active Problem 09/15/2021 Data migrated from [facility] on 03/20/15. Medical Group, OPID Brittany, OPID [place],[facility], [place] Hyperparat Problem Active 2021-09-15 M emoria hyroidism 22:17:41 l (disorder) Vicente n Hyperparat hyroidism (disorder) Active Problem 09/15/2021 [facility], [facility] [place], [place] Hypertensi Problem Active 2021-09-15 M emoria ve 22:17:41 l disorder, [place] systemic Hypertensi arterial ve (disorder) disorder, systemic arterial (disorder) Active Problem 09/15/2021 [facility] [place], [facility] [place], [place] Hypertensi Problem Active 2021-09-15 M emoria ve renal 22:17:41 l disease [place] (disorder) Hypertensi ve renal disease (disorder) Active Problem 09/15/2021 [facility], [facility] [place], [place] Hyperurice Problem Active 2021-09-15 M emoria bryant 22:17:41 l (disorder) Vicente n Hyperurice bryant (disorder) Active Problem 09/15/2021 Data migrated from [facility] on 03/20/15. Medical Group, OPID Brittany, OPID [place], [facility], [place] Lymphedema Problem Active 2021-09-15 M emoria of lower 22:17:41 l extremity [place] (disorder) Lymphedema of lower extremity (disorder) Active Problem 09/15/2021 [facility], [facility] [place], [place] Malignant Problem Active 2021-09-15 Me moria neoplasm 22:17:41 l of skin of Vicente n upper limb Malignant (disorder) neoplasm of skin of upper limb (disorder) Active Problem 09/15/2021 [facility], [facility] [place], [place] Morbid Problem Active 2021-09-15 Memor ia obesity 22:17:41 l (disorder) Morbid Herm connie obesity (disorder) Active Problem 09/15/2021 [facility], OPID Brittany, OPID [place], [facility], [place] Post-disch Problem Active 2021-09-15 M emoria arge 22:17:41 l follow-up [place] (finding) Post-disch arge follow-up (finding) Active Problem 09/15/2021 [facility], [place] Prerenal Problem Active 2021-09-15 Mem oria azotemia 22:17:41 l (disorder) Prerenal He rmann azotemia (disorder) Active Problem 09/15/2021 [facility], [facility] [place], [place] Proteinuri Problem Active 2021-09-15 M emoria a 22:17:41 l (finding) [place] Proteinuri a (finding) Active Problem 09/15/2021 [facility], [facility] [place], [place] Stasis Problem Active 2021-09-15 Memor ia ulcer 22:17:41 l (disorder) Stasis Herm connie ulcer (disorder) Active Problem 09/15/2021 [facility], [facility] [place], [place] Swelling - Problem Active 2021-09-15 M emoria edema - 22:17:41 l symptom Swelling Karen nn (finding) - edema - symptom (finding) Active Problem 09/15/2021 [facility], [facility] [place], [place] Swollen Problem Active 2021-09-15 Turner arnoldo ankle 22:17:41 l (finding) Swollen Herm connie ankle (finding) Active Problem 09/15/2021 [facility], [facility] [place], [place] Urinary Problem Resolve 2021-09-15 Mem oria tract d 22:17:41 l infectious Urinary Her hunt disease tract (disorder) infectious disease (disorder) Resolved Problem 09/15/2021 [facility], [facility] [place], [place] Venous Problem Active 2021-09-15 Memor ia ulcer of 22:17:41 l leg Venous Denis (disorder) ulcer of leg (disorder) Active Problem 09/15/2021 [facility], [facility] [place], [place] Weight Problem Active 2021-09-15 Memor ia gain 22:17:41 l finding Weight [place] (finding) gain finding (finding) Active Problem 09/15/2021 [facility], [facility] [place], [place] Acute Problem Active 2016-05-15 Memor ia renal 00:23:22 l failure Acute Denis syndrome renal (disorder) failure syndrome (disorder) Active Problem 05/15/2016 Data migrated from [employer] on 03/20/15. OPID Brittany, OP[facility] [place],[facility] Kidney Problem Active 2016-11-20 Memor ia disease 03:07:28 l (disorder) Kidney Herm connie disease (disorder) Active Problem 11/20/2016 [place] Migraine Problem Active 2016-11-20 Mem oria (disorder) 03:07:28 l Migraine Vicente n (disorder) Active Problem 11/20/2016 [facility] [place] [place] RIGHT Diagnosis Active 2016-03-09 Mem oria WRIST 15:06:00 l DISTAL RIGHT [place] RADIUS WRIST CLSD FX DISTAL RADIUS CLSD FX Active [facility] DISTAL Diagnosis Active 2016-04-21 Mem oria RADIUS 09:46:00 l CLSD FX DISTAL Denis RADIUS CLSD FX Active [facility] Cholestero Problem 2016-01-01 M emoria l 05:02:18 l (substance Vicente n ) Cholestero l (substance ) Problem 01/01/2016 [facility] Sleep Problem 2016-01-01 Memor ia apnea 05:02:18 l (finding) Sleep Vicente n apnea (finding) Problem 01/01/2016 2does not use cpap [facility] Acute Problem Resolve 2016-05-15 2016-05-15 Memoria otitis d 02-12 00:23:22 00:23:22 l media Acute 00:00: [place] (disorder) otitis 00 media (disorder) Resolved 02/12/2013 Problem 05/15/2016 Data migrated from [facility] on 05/08/15. OPID Brittany, OPID [place],[facility] History of Past [...] 11-09 01:29:16 01:29:16 l emia Other 21:16: [place] hyperlipid 00 emia 09/09/2021 09/12/2021 Medical Group Unsteadine Problem 2020-102021-09-12 2021-09-12 Memoria ss on feet 11-09 01:29:16 01:29:16 l 21:13: [place] Unsteadine 00 ss on feet 09/09/2021 09/12/2021 [facility] Weakness Problem 2020-102021-09-12 2021-09-12 Memoria - 01:29:16 01:29:16 l Weakness 21:13: Vicente n 00 09/09/2021 09/12/2021 [facility] Essential Problem 2020-102021-09-12 2021-09-12 Memoria (primary) 11-09 01:29:16 01:29:16 l hypertensi 21:12: Vicente n on Essential 00 (primary) hypertensi on 09/09/2021 09/12/2021 [facility] Other long Problem 2020-102021-09-08 2021-09-08 Memoria term - 22:39:43 22:39:43 l (current) 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 09/06/2021 09/08/2021 Medical Group Other Problem 2020-102021-09-08 2021-09-08 M emoria abnormal 11-06 22:39:43 22:39:43 l glucose Other 22:23: Denis abnormal 00 glucose 09/06/2021 09/08/2021 [facility] Allergies, Adverse Reactions, Alerts Allergy Allergy [...] 2</sup> Denis codeine codeine Active Memoria l [place] penicill penicill Active Memori a ins ins [...] Yes 1 appl, Memor ia 0.02 MG/MG 11-12 TOP, TID, l Topical 23:21: X 5 day, # Herm connie Ointment 00 22 gm, 0 Refill(s), Pharmacy: [facility] #[id number], 165.1, cm, 09/09/21 14:08:00 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, Height, 136.42, kg, 09/09/21 14:08:00 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, Weight bumetanide 2020-10 Yes 2 mg = 1 Mem oria 2 mg oral 1-19 tab, PO, l tablet 21:11: Daily, # [place] 00 30 tab, 0 Refill(s) allopurinol 2020-10 Yes 100 mg = 1 Memoria 100 mg oral 1-19 tab, PO, l tablet 21:10: BID, # 60 Vicente n 00 tab, 0 Refill(s) gabapentin 2020-10 Yes 200 mg = 2 M emoria 100 MG Oral -19 cap, PO, l Capsule 21:10: Bedtime, 0 Herm connie 00 Refill(s) QUEtiapine Yes 1 tablet, Me moria 50 mg oral 3-30 once a l tablet 13:55: day, 0 [place] 00 Refill(s) torsemide Yes 1 tablet, Mem [...] twice a l Tablet 13:53: day, 0 [place] [Eliquis] 00 Refill(s) gabapentin Yes 1 capsule, [...] DAILY, # 66 gm, 1 Refill(s), Pharmacy: [facility] #[id number], 170.18, cm, 12/16/19 14:42:00 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, Height, 164.318, kg, 12/16/19 14:42:00 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, Weight Nitrofurant Yes 100 mg = 1 Memoria oin 100 MG 8-09 cap, PO, l Oral 17:57: BID, X 10 [place] Capsule 00 day, # 20 [Macrobid] cap, 0 Refill(s), Pharmacy: [facility] #[id number], 170.18, cm, 12/16/19 14:42:00 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, Height, 164.318, kg, 12/16/19 14:42:00 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, Weight lisinopril 2019- Yes 2.5 mg = 1 M emoria 2.5 mg oral 6-04 tab, PO, l tablet 23:26: Daily, # Denis 00 30 tab, 2 Refill(s), called to pharmacy calcitriol 2019-0 Yes = 1 cap, Mem oria 0.25 mcg 5-20 PO, Daily, l oral 12:18: # 90 cap, Denis capsule 00 1 Refill(s), [facility] #[id number] calcitriol 2019-0 Yes = 1 cap, Mem oria 0.25 mcg 4-16 PO, Daily, l oral 16:37: # 90 Denis capsule 47 unknown unit, Pharmacy: [facility] #[id number] Furosemide 2019-0 Yes = 1 tab, Mem oria 40 MG Oral 4-13 PO, Every l Tablet 20:06: Other Day, Karen nn 19 # 45 tab, Pharmacy: [facility] #[id number] prednisolon 2019-0 Yes 1 drop in M emoria e acetate 4-10 each eye, l 10 MG/ML 20:53: once Denis Ophthalmic 00 daily, 0 Suspension Refill(s) bromfenac 2019-0 Yes 1 drop in Mem oria 0.7 MG/ML 4-10 right eye, l Ophthalmic 20:53: once [place] Solution 00 daily, 0 [Prolensa] Refill(s) Furosemide 2019-0 Yes = 1 tab, Mem oria 40 MG Oral 1-23 PO, Every l Tablet 15:13: Other Day, Karen nn 34 # 45 tab, Pharmacy: [facility] #[id number] Mupirocin 2018-10 Yes See Memoria 0.02 MG/MG 2-27 Instructio l Topical 19:11: ns, # 66 Vicente n Ointment 15 gm, APPLY EXTERNALLY TO THE AFFECTED AREA TWICE DAILY, Pharmacy: [facility] #[id number] Nitrofurant 2018-10 Yes 100 mg = 1 Memoria oin 100 MG 2-13 cap, PO, l Oral 01:44: BID, X 5 [place] Capsule 00 day, # 10 [Macrodanti cap, 0 n] Refill(s), Pharmacy: [facility] #[id number] apixaban 5 2018-10 Yes 5 mg, PO, [...] ermann Bitartrate 00 5 MG Oral Tablet [[place] 5/325] calcitriol 2018-10 Yes = 1 cap, Mem oria 0.25 mcg 0-11 PO, Daily, l oral 21:10: # 90 [place] capsule 30 unknown unit, [id number] gabapentin Yes 300 mg = 1 M emoria 300 MG Oral 9-27 cap, PO, l Capsule 20:54: BID, # 180 Herm connie 00 cap, 3 Refill(s), called to pharmacy allopurinol Yes = 1 tab, Me moria 300 mg oral 8-17 PO, Daily, l tablet 02:39: # 90 tab, Vicente n 31 [id number] QUEtiapine Yes 50 mg = 1 Me [...] BEDTIME, # 90 tab, 1 Refill(s), Pharmacy: [facility] [place] [address] amLODIPine Yes See Memoria 5 mg oral 3-14 Instructio l tablet 15:07: ns, TAKE 1 Karen nn 33 TABLET BY MOUTH EVERY DAY, # 90 tab, 1 Refill(s), Pharmacy: [facility] [place] [address] lisinopril Yes See Memoria 5 mg oral 8-21 Instructio l tablet 19:00: ns, TAKE 1 Karen nn 30 TABLET BY MOUTH DAILY, # 90 tab, 1 Refill(s), Pharmacy: [facility] [place] [address] atorvastati Yes See Memori a n 40 mg 8-21 Instructio l oral tablet 18:50: ns, TAKE 1 [place] 45 TABLET BY MOUTH EVERY NIGHT AT BEDTIME, # 30 tab, 5 Refill(s), Pharmacy: [facility] [place] [address] amLODIPine Yes See Memoria 5 mg oral 8-21 Instructio l tablet 18:50: ns, TAKE 1 Karen nn 41 TABLET BY MOUTH EVERY DAY, # 30 tab, 5 Refill(s), Pharmacy: [facility] [place] [address] lisinopril No See Memoria 5 mg oral 7-31 Instructio l tablet 15:28: ns, # 90 Denis 34 tab, TAKE 1 TABLET BY MOUTH DAILY, Pharmacy: [facility] [place] [address] allopurinol No 300 mg = 1 Memoria 300 mg oral 5-10 tab, PO, l tablet 13:59: Daily, # [place] 00 90 tab, 1 Refill(s), Pharmacy: [facility] [place] [address] lisinopril No See Memoria 5 mg oral 5-01 Instructio l tablet 12:38: ns, # 90 Denis 18 tab, TAKE 1 TABLET BY MOUTH DAILY, Pharmacy: [facility] [place] [address] ALLOPURINOL Yes See Memori a 300MG 5-01 Instructio l TABLETS 12:38: ns, # 90 Vicente n 18 tab, TAKE 1 TABLET BY MOUTH DAILY, Pharmacy: [facility] calcitriol Yes 0.25 Memoria 0.25 mcg 3-28 microgram l oral 13:49: = 1 cap, Denis capsule 00 PO, Daily, # 90 cap, 3 Refill(s), Pharmacy: [facility] Mupirocin Yes 1 appl, Memor ia 0.02 MG/MG 3-21 TOP, BID, l Topical 15:37: 30 grams Vicente n Ointment 21 3each, # 3 ea, 1 Refill(s), Pharmacy: [facility] [employer] [facility] atorvastati Yes See Memori a n 40 mg 3-21 Instructio l oral tablet 15:36: ns, TAKE 1 [place] 22 TABLET BY MOUTH EVERY NIGHT AT BEDTIME, # 30 tab, 5 Refill(s), Pharmacy: [facility] [employer] [facility] amLODIPine Yes See Memoria 5 mg oral 3-21 Instructio l tablet 15:36: ns, TAKE 1 Karen nn 18 TABLET BY MOUTH EVERY DAY, # 30 tab, 5 Refill(s), Pharmacy: [facility] [employer] [facility] aspirin 81 Yes 81 mg = 1 Me moria mg tablet, 1-24 tab, PO, l enteric 16:34: Daily, # Vicente n coated 00 90 tab, 3 Refill(s) Xopenex No Kyle K 0.63 mg = Mem oria 0.63 mg/3 3-11 Silvestre 3 mL, l mL 01:00: Patiton, NEB, Denis inhalation 00 Once, solution first dose 12/30/15 19:00:00 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, stop date 12/30/15 19:00:00 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 Misc No Perico 300 mL, Memoria Medication 3-11 Wheat Soln-IV, l 00:03: IV, Once, Denis 00 first dose 12/30/15 18:03:00 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, stop date 12/30/15 18:03:00 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 promethazin No Kyle K 12.5 mg = Memoria e 3-11 Silvestre 0.5 mL, l 00:02: Injection, [place] 00 IM, Once PRN for severe nausea, first dose 12/30/15 18:02:00 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 albuterol No Kyle K 2.5 mg = 3 Memoria 2.5 mg/3 mL 3-11 Silvestre mL, Soln, l (0.083%) 00:02: NEB, Once Herm connie inhalation 00 PRN for solution wheezing, first dose 12/30/15 18:02:00 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 Demerol HCl No Kyle K 12.5 mg = Memoria 3-11 Silvestre 0.25 mL, l 00:02: Injection, Denis 00 IV Push, Once PRN for shivers, first dose 12/30/15 18:02:00 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 ondansetron No Kyle K 4 mg = 2 Memoria 3-11 Silvestre mL, l 00:02: Injection, [place] 00 IV Push, q15min PRN for nausea/vom iting, order duration: 2 doses, first dose 12/30/15 18:02:00 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, stop date Limited # of times Dilaudid No Kyle K 0.5 mg = Mem oria 3-11 Silvestre 0.25 mL, l 00:02: Injection, Denis 00 IV Push, q10min PRN for pain severe (7-10), first dose 12/30/15 18:02:00 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 diphenhydrA No Kyle K 25 mg = M emoria MINE 3-11 Silvestre 0.5 mL, l 00:02: Injection, Denis 00 IV Push, Once PRN for itching, first dose 12/30/15 18:02:00 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 LR 1,000 mL No Kyle K 1,000 mL, Memoria 3-11 Silvestre IV, 75 l 00:02: mL/hr, Denis 00 start date 12/30/15 18:02:00 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 Saline Lock No Kyle K 10 mL, Me moria Flush 3-11 Silvestre Soln, IV l 00:02: Push, As Denis 00 Indicated PRN for flush, first dose 12/30/15 18:02:00 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 Bupivacaine No Kyle K 300 mL, M emoria 0.25% 300 3-11 Silvestre Nerve l mL pump 300 00:02: Block, 5 He rmann mL 00 mL/hr, start date 12/30/15 18:02:00 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 Misc No Perico 1,000 mL, Memori a Medication 3-10 Wheat Soln-IV, l 23:42: IV, Once, [place] 00 first dose 12/30/15 17:42:00 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, stop date 12/30/15 17:42:00 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 fentaNYL No Perico 25 mcg = Mem oria 3-10 Wheat 0.5 mL, l 23:20: Injection, [place] 00 IV, Once, first dose 12/30/15 17:20:00 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, stop date 12/30/15 17:20:00 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 ondansetron No Perico 4 mg = 2 Memoria 3-10 Wheat mL, l 23:03: Injection, [place] 00 IV, Once, first dose 12/30/15 17:03:00 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, stop date 12/30/15 17:03:00 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 fentaNYL No Perico 25 mcg = Mem oria 3-10 Wheat 0.5 mL, l 23:00: Injection, [place] 00 IV, Once, first dose 12/30/15 17:00:00 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, stop date 12/30/15 17:00:00 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 fentaNYL No Perico 25 mcg = Mem oria 3-10 Wheat 0.5 mL, l 22:48: Injection, Denis 00 IV, Once, first dose 12/30/15 16:48:00 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, stop date 12/30/15 16:48:00 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 fentaNYL No Perico 25 mcg = Mem oria 3-10 Wheat 0.5 mL, l 22:37: Injection, [place] 00 IV, Once, first dose 12/30/15 16:37:00 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, stop date 12/30/15 16:37:00 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 dexamethaso No Perico 8 mg = 2 Memoria ne 3-10 Wheat mL, l 22:23: Injection, Denis 00 IV, Once, first dose 12/30/15 16:23:00 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, stop date 12/30/15 16:23:00 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 Misc No Perico 1,000 mL, Memori a Medication 3-10 Wheat Soln-IV, l 22:21: IV, Once, [place] 00 first dose 12/30/15 16:21:00 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, stop date 12/30/15 16:21:00 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 clindamycin 2015- Yes Perico 928.125 M emoria 3-10 Wheat mg, l 22:18: Soln-IV, Denis 00 IV, Once, first dose 12/30/15 16:18:00 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, stop date 12/30/15 16:18:00 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 fentaNYL No Perico 25 mcg = Mem oria 3-10 Wheat 0.5 mL, l 22:05: Injection, Denis 00 IV, Once, first dose 12/30/15 16:05:00 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, stop date 12/30/15 16:05:00 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 midazolam No Perico 0.5 mg = Me moria 3-10 Wheat 0.5 mL, l 22:05: Injection, Denis 00 IV, Once, first dose 12/30/15 16:05:00 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, stop date 12/30/15 16:05:00 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 lidocaine No Perico 3 mL, Memor ia 3-10 Wheat Injection, l 21:58: IV, Once, Denis 00 first dose 12/30/15 15:58:00 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, stop date 12/30/15 15:58:00 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 propofol No Perico 120 mg = Mem oria 3-10 Wheat 12 mL, l 21:58: Emulsion, [place] 00 IV, Once, first dose 12/30/15 15:58:00 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, stop date 12/30/15 15:58:00 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 midazolam No Perico 0.5 mg = Me moria 3-10 Wheat 0.5 mL, l 21:50: Injection, Denis 00 IV, Once, first dose 12/30/15 15:50:00 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, stop date 12/30/15 15:50:00 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 fentaNYL No Perico 25 mcg = Mem oria 3-10 Wheat 0.5 mL, l 21:50: Injection, [place] 00 IV, Once, first dose 12/30/15 15:50:00 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, stop date 12/30/15 15:50:00 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 midazolam No Perico 0.5 mg = Me moria 3-10 Wheat 0.5 mL, l 21:10: Injection, [place] 00 IV, Once, first dose 12/30/15 15:10:00 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, stop date 12/30/15 15:10:00 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 fentaNYL No Perico 25 mcg = Mem oria 3-10 Wheat 0.5 mL, l 21:10: Injection, Denis 00 IV, Once, first dose 12/30/15 15:10:00 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, stop date 12/30/15 15:10:00 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 fentaNYL No Perico 25 mcg = Mem oria 3-10 Wheat 0.5 mL, l 21:05: Injection, [place] 00 IV, Once, first dose 12/30/15 15:05:00 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, stop date 12/30/15 15:05:00 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 midazolam No Perico 0.5 mg = Me moria 3-10 Wheat 0.5 mL, l 21:05: Injection, Denis 00 IV, Once, first dose 12/30/15 15:05:00 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, stop date 12/30/15 15:05:00 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 clindamycin No Jose Francisco 900 mg, IV Memoria 3-10 Johnson Piggyback, l 20:00: Once, [place] 00 infuse over 30 minutes, first dose 12/30/15 14:00:00 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, stop date 12/30/15 14:00:00 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, Prophylaxi s LR 1,000 mL No Kyle K 1,000 mL, Memoria 3-10 Silvestre IV, 30 l 19:27: mL/hr, Denis 00 start date 12/30/15 13:27:00 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 Kyle K 0.2 mL, Mem oria 2% 0.2 mL 3-10 Silvestre Injection, l IV Start 19:27: Subcutaneo Her hunt [[facility]] 00 us, Once PRN for other (see comment), first dose 12/30/15 13:27:00 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 Seroquel Yes 100 mg, Memori a 3-09 Oral, l 14:40: Daily, 0 Denis 00 Refill(s), migraines acetaminoph Yes 1 tabs, Mem oria en-HYDROcod 3-09 Oral, l one 325 14:40: q6hr, 0 Denis mg-5 mg 00 Refill(s), oral tablet pain traMADol 50 Yes 50 mg = 1 M emoria mg oral - tabs, l tablet 14:40: Oral, Denis 00 q4hr, 0 Refill(s), pain amLODIPine- Yes 1 tabs, Mem oria atorvastati 12-28 Oral, qHS, l n 5 mg-40 14:40: 0 [place] mg oral 00 Refill(s), tablet cholestero l/hyperten will Osteo Yes Oral, Memoria Bi-Flex 3-09 Daily, 0 l 14:40: Refill(s), Denis 00 supplement Nature's Yes 1,000 mg = [...] 12-28 1 tabs, l tablet 14:40: Oral, [place] 00 Once, PRN for migraine headache, may repeat dose once in 2 hours, # 6 tabs, 0 Refill(s), migrainesm ay repeat dose once in 2 hours Wellbutrin Yes 300 mg, Turner arnoldo XL 12-28 Oral, l 14:40: q24hr, 0 Denis 00 Refill(s), migraines Immunizations Ordered Immunization Filled Immunization Date Status Commen ts Source Name Name Hx influenza 2019-08-13 Completed [facility] vaccine-unspecified< 00:00:00 Herm connie sup>1</sup> pneumococcal 2019-05-14 Completed [facility] 23-valent 00:00:00 Denis vaccine<sup>3</sup> Hx influenza 2011-08-15 Completed [facility] vaccine-unspecified< 14:42:42 Herm connie sup>1</sup> Hx influenza 2011-08-15 Completed [facility] vaccine-unspecified< 14:42:42 Herm connie sup>2</sup> Vital Signs Vital Name Observation Time Observation Value Comments Source Heart Rate 2021-09-09 20:12:00 [facility] [place] Heart Rate 2021-09-09 20:08:00 [facility] Systolic (mm Hg) 2021-09-09 20:08:00 Turner rial [place] Diastolic (mm Hg) 2021-09-09 20:08:00 [facility] [place] Height 2021-09-09 20:08:00 165.1 cm [facility] Weight 2021-09-09 20:08:00 [facility] Denis BMI Calculated 2021-09-09 20:08:00 [facility] al Denis Systolic (mm Hg) 2020-09-15 15:59:00 Turner rial [place] Diastolic (mm Hg) 2020-09-15 15:59:00 [facility] [place] Heart Rate 2020-09-15 15:59:00 [facility] [place] Height 2020-09-15 15:59:00 165.1 cm [facility] [place] Weight 2020-09-15 15:59:00 [facility] Denis BMI Calculated 2020-09-15 15:59:00 [facility] [place] Systolic (mm Hg) 2019-12-16 20:42:00 Turner rial Denis Diastolic (mm Hg) 2019-12-16 20:42:00 [facility] [place] Heart Rate 2019-12-16 20:42:00 [facility] [place] Temperature Oral (F) 2019-12-16 20:42:00 98.2 F [facility] Height 2019-12-16 20:42:00 170.18 cm [facility] [place] Weight 2019-12-16 20:42:00 [facility] Denis BMI Calculated 2019-12-16 20:42:00 [facility] al Denis Systolic (mm Hg) 2019-10-02 21:53:00 Turner rial Denis Diastolic (mm Hg) 2019-10-02 21:53:00 [facility] [place] Heart Rate 2019-10-02 21:53:00 [facility] Denis Temperature Oral (F) 2019-10-02 21:53:00 97.9 F [facility] [place] Height 2019-10-02 21:53:00 165.1 cm [facility] Weight 2019-10-02 21:53:00 [facility] [place] BMI Calculated 2019-10-02 21:53:00 [facility] [place] Height 2019-08-15 14:54:00 165.1 cm [facility] Weight 2019-08-15 14:54:00 [facility] [place] BMI Calculated 2019-08-15 14:54:00 [facility] [place] Systolic (mm Hg) 2019-08-15 14:54:00 Turner rial Denis Diastolic (mm Hg) 2019-08-15 14:54:00 [facility] [place] Heart Rate 2019-08-15 14:54:00 [facility] [place] Temperature Oral (F) 2019-08-15 14:54:00 97.6 F [facility] [place] Systolic (mm Hg) 2019-07-31 15:37:00 Turner rial Denis Diastolic (mm Hg) 2019-07-31 15:37:00 [facility] [place] Heart Rate 2019-07-31 15:37:00 [facility] Temperature Oral (F) 2019-07-31 15:37:00 98.2 F [facility] Height 2019-07-31 15:37:00 165.1 cm [facility] Weight 2019-07-31 15:37:00 [facility] [place] BMI Calculated 2019-07-31 15:37:00 [facility] [place] Weight 2019-03-27 15:18:00 [facility] BMI Calculated 2019-03-27 15:18:00 [facility] [place] Height 2019-03-27 15:18:00 165.1 cm [facility] [place] Temperature Oral (F) 2019-03-27 15:18:00 98.4 F [facility] [place] Heart Rate 2019-03-27 15:18:00 [facility] [place] Systolic (mm Hg) 2019-03-27 15:18:00 Turner rial Denis Diastolic (mm Hg) 2019-03-27 15:18:00 [facility] [place] Height 2019-01-02 19:16:00 165.1 cm [facility] BMI Calculated 2019-01-02 19:16:00 [facility] al Denis Weight 2019-01-02 19:16:00 [facility] Denis Heart Rate 2019-01-02 19:16:00 [facility] Systolic (mm Hg) 2019-01-02 19:16:00 Turner rial [place] Diastolic (mm Hg) 2019-01-02 19:16:00 Mem orial Denis Height 2019-01-02 14:26:00 167.01 cm [facility] Denis BMI Calculated 2019-01-02 14:26:00 [facility] [place] Weight 2019-01-02 14:26:00 [facility] [place] Heart Rate 2019-01-02 14:26:00 [facility] Temperature Oral (F) 2019-01-02 14:26:00 97.9 F [facility] Systolic (mm Hg) 2019-01-02 14:26:00 Turner rial Denis Diastolic (mm Hg) 2019-01-02 14:26:00 Mem orial Denis Systolic (mm Hg) 2018-07-18 18:33:00 Turner rial [place] Diastolic (mm Hg) 2018-07-18 18:33:00 Mem orial Denis Heart Rate 2018-07-18 18:33:00 [facility] Denis Weight 2018-07-18 18:33:00 [facility] Denis BMI Calculated 2018-06-11 18:31:00 Memori al Denis Weight 2018-06-11 18:31:00 [facility] Systolic (mm Hg) 2018-06-11 18:31:00 Turner rial Denis Diastolic (mm Hg) 2018-06-11 18:31:00 Mem orial Denis Height 2018-06-11 18:31:00 170.18 cm [facility] [place] Temperature Oral (F) 2018-06-11 18:31:00 98.3 F [facility] Heart Rate 2018-06-11 18:31:00 [facility] [place] Weight 2018-01-10 16:14:00 [facility] [place] Height 2018-01-10 16:14:00 170.18 cm [facility] [place] BMI Calculated 2018-01-10 16:14:00 [facility] [place] Heart Rate 2018-01-10 16:14:00 [facility] [place] Systolic (mm Hg) 2018-01-10 16:14:00 Turner rial Denis Diastolic (mm Hg) 2018-01-10 16:14:00 Mem orial Denis BMI Calculated 2018-01-09 15:06:00 [facility] [place] Height 2018-01-09 15:06:00 170.18 cm [facility] [place] Weight 2018-01-09 15:06:00 [facility] [place] Systolic (mm Hg) 2018-01-09 15:06:00 Turner rial [place] Diastolic (mm Hg) 2018-01-09 15:06:00 Mem [facility] [place] Heart Rate 2018-01-09 15:06:00 [facility] [place] Temperature Oral (F) 2018-01-09 15:06:00 97.9 F [facility] Weight 2016-11-14 16:17:00 [facility] Height 2016-11-14 16:17:00 170.18 cm [facility] Denis BMI Calculated 2016-11-14 16:17:00 [facility] [place] Respitory Rate 2015-12-31 01:25:00 Memori al Denis Systolic (mm Hg) 2015-12-31 00:50:00 Turner rial [place] Respitory Rate 2015-12-31 00:50:00 [facility] [place] Heart Rate 2015-12-31 00:50:00 [facility] [place] Systolic (mm Hg) 2015-12-31 00:40:00 Turner rial [place] Respitory Rate 2015-12-31 00:40:00 [facility] [place] Heart Rate 2015-12-31 00:40:00 [facility] [place] Heart Rate 2015-12-31 00:30:00 [facility] [place] Systolic (mm Hg) 2015-12-31 00:30:00 Turner rial [place] Temperature Oral (F) 2015-12-30 23:50:00 37.1 Linda [facility] Denis Height 2015-12-30 19:23:00 169 cm [facility] Weight 2015-12-30 19:23:00 [facility] [place] Temperature Oral (F) 2015-12-30 19:23:00 36.6 Linda [facility] [place] Height 2015-12-29 14:13:00 170 cm [facility] [place] Weight 2015-12-29 14:13:00 [facility] Denis Procedures Procedure Date / Time Performed Performing Clinician [facility] e Diabetic retinal eye 2019-12-11 06:00:00 Jourdan Barrios exam<sup>1</sup> Mammogram 2017-05-05 05:00:00 [facility] [place] Colonoscopy<sup>2</sup> 2016-11-17 06:00:00 Turner rial [place] OPEN REDUCTION INTERNAL 2015-12-30 22:13:00 Jose Francisco Johnson Denis FIXATION RADIUS INTRA-ARTICULAR W/3 FRAGMENTS 65002 (Right)<sup>1</sup> Repair of 2015-12-30 06:00:00 [facility] Her hunt wrist<sup>1</sup> skin cancer removed from 2011-10-22 00:00:00 Mem orial Denis arm Skin cancer of [facility] Denis arm<sup>2</sup> Procedure<sup>2</sup> [facility] Tubal ligation [facility] Eye operation [facility] [place] Biopsy of breast [facility] n bilateral radial [facility] n kerototomy bilateral tubal ligation Memoria l Denis colonoscopy [facility] Denis Encounters Start End Encounter Admission Attending Care Care Encounter Source Date/Time Date/Time Type Type Clinicians Facility Department ID 2021-12-30 2021-12-30 Outpatient EKERUO, [facility] [id number] [place] 00:00:00 00:00:00 MARY 779 Method i 2021-12-19 2021-12-28 Inpatient SOLIPURAM, [facility] [id number] [place] 00:00:00 00:00:00 MICHELLE [address] 2021-11-15 2021-11-15 Outpatient [facility], [facility] [id number] [place] 00:00:00 00:00:00 RAZIUDDIN [address] 2021-11-14 2021-11-14 Outpatient AHMED, [facility] [id number] [place] 00:00:00 00:00:00 RAZIUDDIN [address] 2021-09-20 2021-09-20 Outpatient AHMED, [facility] [id number] [place] 00:00:00 00:00:00 RAZIUDDIN [address] 2021-09-12 2021-09-13 Between nullFlavo [facility] Family [id number] Memoria 14:18:24 14:18:24 Visit r Medicine 62 l Carrillo davis 2021-09-12 2021-09-13 Between nullFlavo [facility] Family [id number] Memoria 00:56:47 00:56:47 Visit r Medicine 61 l Carrillo davis 2021-09-09 2021-09-10 Outpatient nullFlavo [facility] Family 3 [id number] Memoria 20:00:00 05:59:59 r Medicine 52 l Carrillo davis 2021-09-06 2021-09-08 Phone nullFlavo [facility] Family [id number] Memoria 21:38:38 05:59:59 Message r Medicine 13 l Carrillo Vicente n 2021-09-07 2021-09-07 Outpatient EKERUO, [facility] [id number] [place] 00:00:00 00:00:00 MARY 513 Method i 2021-09-05 2021-09-06 Between nullFlavo [facility] Family [id number] Memoria 15:33:59 15:33:59 Visit r Medicine 59 l Vizcaino Vicente n 2021-07-14 2021-07-26 Inpatient SOLIPURAM, [facility] [id number] [place] 00:00:00 00:00:00 MICHELLE 329 Method i 2021-07-13 2021-07-13 Outpatient OPPERMANN, [facility] [id number] [place] 00:00:00 00:00:00 KRISTIAN 104 Method i 2021-06-30 2021-06-30 Outpatient AHMED, [facility] [id number] [place] 00:00:00 00:00:00 RAZIUDDIN 273 Meth aiden 2021-06-07 2021-06-07 Outpatient EKERUO, [facility] [id number] [place] 00:00:00 00:00:00 MARY 787 Method i 2021-06-07 2021-06-07 Outpatient DAOURA, [facility] [id number] [place] 00:00:00 00:00:00 NILESH 546 Method i 2021-05-19 2021-05-26 Inpatient MARY ALICE, [facility] [id number] [place] 00:00:00 00:00:00 COURTNEY 275 Method i 2021-05-12 2021-05-12 Outpatient AHMED, [facility] [id number] [place] 00:00:00 00:00:00 RAZIUDDIN 199 Meth aiden 2021-05-11 2021-05-11 Outpatient EKERUO, [facility] [id number] [place] 00:00:00 00:00:00 MARY 640 Method i 2021-05-06 2021-05-06 Outpatient EKERUO, [facility] [id number] [place] 00:00:00 00:00:00 MARY 435 Method i 2021-05-06 2021-05-06 Outpatient EKERUO, [facility] [id number] [place] 00:00:00 00:00:00 MARY [address] 2021-05-03 2021-05-03 Outpatient EKERUO, [facility] [id number] [place] 00:00:00 00:00:00 MARY [address] 2021-04-08 2021-04-21 Inpatient CAMILLE, [facility] [id number] [place] 00:00:00 00:00:00 MICHELLE [address] 2021-03-09 2021-03-09 Outpatient AHMED, [facility] [id number] [place] 00:00:00 00:00:00 RAZIUDDIN [address] 2021-02-24 2021-02-24 Outpatient nullFlavo [place] [id number] Memoria 01:00:00 04:59:00 r Denis 58 l [place] Karen nn 2021-02-23 2021-02-23 Outpatient AHMED, [facility] [id number] [facility] 20:00:00 23:59:00 RAZIUDDIN 2021-02-10 2021-02-10 Outpatient AHMED, [facility] [id number] [place] 00:00:00 00:00:00 RAZIUDDIN [address] 2021-02-03 2021-02-08 Inpatient MARY ALICE, [facility] [id number] [place] 00:00:00 00:00:00 COURTNEY 060 Method i 2021-01-20 2021-01-20 Outpatient [facility] [id number] [place] 00:00:00 00:00:[address] 2021-01-18 2021-01-19 Outpatient nullFlavo [facility] Family 3 [id number] Memoria 19:30:00 04:59:59 r Medicine 51 l Carrillo Zhang n 2021-01-18 2021-01-18 Outpatient [facility] [id number] [place] 00:00:00 00:00:[address] 2021-01-14 2021-01-15 Between nullFlavo [facility] Family [id number] Memoria 13:38:03 13:38:03 Visit r Medicine 57 l Carrillo davis 2021-01-12 2021-01-12 Outpatient MED, [facility] [id number] [place] 00:00:00 00:00:00 RAZIUDDIN 554 Meth aiden 2020-12-31 2021-01-05 Inpatient MARY ALICE, [facility] [id number] [place] 00:00:00 00:00:00 COURTNEY 541 Method i 2020-12-17 2020-12-28 Inpatient MARY ALICE [facility] Vidya [id number] [place] 00:00:00 00:00:00 COURTNEY 559 Method i 2020-10-11 2020-10-18 Inpatient MARY ALICE, [facility] [id number] [place] 00:00:00 00:00:00 COURTNEY 271 Method i 2020-09-15 2020-09-16 Outpatient nullFlavo [facility] Family 3 [id number] Memoria 16:30:00 05:59:59 r Medicine 50 l Carrillo Zhang n 2020 2020-09-07 Inpatient CAMILLE, [facility] [id number] [place] 00:00:00 00:00:00 MICHELLE 464 Method i 2020-08-13 2020-09-01 Inpatient CAMILLE, [facility] [id number] [place] 00:00:00 00:00:00 MICHELLE 557 Method i 2020-08-13 2020-08-14 Outpt Diag nullFlavo [facility] [address] [id number] Memoria 18:10:00 04:59:00 Services r Outpatient 06 l Imaging [place] 2020-08-11 2020-08-12 Between nullFlavo [facility] Family [id number] Memoria 17:58:19 17:58:19 Visit r Medicine 56 l Carrillo Zhang n 2020-08-03 2020-08-04 Outpatient nullFlavo [facility] Family 3 [id number] Memoria 15:15:00 04:59:59 r Medicine 49 l Carrillo Zhang n 2020-06-22 2020-06-23 Outpt Diag nullFlavo [facility] [address] [id number] Memoria 17:02:00 04:59:00 Services r Outpatient 05 l Imaging [place] 2020-06-17 2020-06-17 Ambulatory nullFlavo [facility] [id number] Memoria 19:00:00 19:00:00 Pre-Reg r Nephrology 46 l Carrillo Zhang n 2020-06-10 2020-06-10 Outpatient MHIE [place] [id number] Memoria 11:15:00 11:15:00 47 leonard Denis 2020-06-02 2020-06-03 [place] [id number] Memoria 19:45:00 04:59:59 r Nephrology 48 l Carrillo Zhang ryan 2020-05-20 2020-05-20 Outpatient MANGIN, [facility] [id number] [address] [place] [address] 00:00:00 00:00:00 FABIOLA [address] 2020-03-23 2020-03-25 Phone nullFlavo MG [id number] Memoria 16:17:50 04:59:59 Message r Nephrology 12 l Carrillo Zhang ryan 2020-03-18 2020-03-19 [place] [id number] Memoria 19:00:00 04:59:59 r Nephrology 41 l Carrillo Zhnag ryan 2020-03-08 2020-03-10 Phone nullFlavo MG [id number] Memoria 18:35:51 04:59:59 Message r Nephrology 11 l Walter Denis 2020-02-11 2020-02-12 Outpatient nullFlavo [facility] Family 3 [id number] Memoria 15:15:00 04:59:59 r Medicine 45 l Carrillo Zhang ryan 2020-02-11 2020-02-11 Ambulatory nullFlavo [facility] Family 3 [id number] Memoria 15:15:00 15:15:00 Pre-Reg r Medicine 44 l Carrillo Zhang ryan 2020-02-05 2020-02-07 Phone nullFlavo MG [id number] Memoria 13:23:32 04:59:59 Message r Nephrology 10 l Carrillo Zhang ryan 2020-02-05 2020-02-06 Between nullFlavo [facility] Family [id number] Memoria 14:14:54 14:14:54 Visit r Medicine 52 l Carrillo Vicente davis 2020-02-05 2020-02-05 Outpatient MHIE MHIE [id number] Memoria 11:30:00 11:30:00 43 leonard Denis 2020-02-02 2020-02-04 Phone nullFlavo [facility] Family [id number] Memoria 20:00:15 04:59:59 Message r Medicine 09 l Carrillo Vicente davis 2020-01-30 2020-02-01 Phone nullFlavo [facility] Family [id number] Memoria 17:18:28 04:59:59 Message r Medicine 08 leonard davis 2020-01-30 2020-02-01 Phone nullFlavo MG [id number] Memoria 13:26:55 04:59:59 Message r Nephrology 07 leonard davis 2019-12-16 2019-12-17 Outpatient nullFlavo [facility] Family 3 [id number] Memoria 20:15:00 05:59:59 r Medicine 42 leonard davis 2019-11-13 2019-11-15 Phone nullFlavo [facility] Family [id number] Memoria 14:22:27 05:59:59 Message r Medicine 06 leonard Zhang ryan 2019-10-17 2019-10-19 Phone nullFlavo [facility] Family [id number] Memoria 16:06:04 05:59:59 Message r Medicine 05 leonard Zhang ryan 2019-10-02 2019-10-03 Between nullFlavo MG [id number] Memoria 20:05:03 20:05:03 Visit r Nephrology 45 leonard Barrios 2019-10-02 2019-10-03 Outpatient nullFlavo [facility] [id number] Memoria 20:45:00 05:59:59 r Nephrology 38 leonard Zhang ryan 2019-09-26 2019-09-27 Between nullFlavo MG [id number] Memoria 00:07:10 00:07:10 Visit r Nephrology 43 leonard Watson Denis 2019-09-25 2019-09-25 Outpatient [facility] [id number] Memoria 09:00:00 09:00:00 39 leonard Denis 2019-09-16 2019-09-17 Between nullFlavo [facility] Family [id number] Memoria 21:47:12 21:47:12 Visit r Medicine 41 leonard Zhang ryan 2019-08-19 2019-08-20 Between nullFlavo [facility] Family [id number] Memoria 22:13:13 22:13:13 Visit r Medicine 40 leonard Zhang ryan 2019-08-15 2019-08-16 Outpatient nullFlavo [facility] Family 3 [id number] Memoria 14:45:00 04:59:59 r Medicine 40 leonard davis 2019-08-07 2019-08-07 Ambulatory nullFlavo [facility] Family 3 [id number] Memoria 16:00:00 16:00:00 Pre-Reg r Medicine 36 leonard davis 2019-07-31 2019-08-01 Outpatient nullFlavo [facility] [id number] Memoria 15:00:00 04:59:59 r Nephrology 35 leonard davis 2019-07-31 2019-07-31 Outpatient MHIE MHIE [id number] Memoria 12:00:00 12:00:00 37 leonard Barrios 2019-07-03 2019-07-05 Phone nullFlavo [facility] Family [id number] Memoria 15:15:06 04:59:59 Message r Medicine 04 leonard davis 2019-07-03 2019-07-05 Phone nullFlavo MG [id number] Memoria 15:10:51 04:59:59 Message r Nephrology 03 leonard davis 2019-07-03 2019-07-03 [place] [id number] Memoria 20:00:00 20:00:00 Pre-Reg r Nephrology 34 leonard davis 2019-06-29 2019-06-30 Between nullFlavo MG [id number] Memoria 20:15:16 20:15:16 Visit r Nephrology 34 leonard Barrios 2019-06-11 2019-06-13 Phone nullFlavo MG [id number] Memoria 15:29:54 04:59:59 Message r Nephrology 02 leonard Barrios 2019-06-12 2019-06-12 [place] [id number] Memoria 16:30:00 16:30:00 Pre-Reg r Nephrology 29 leonard davis 2019-06-12 2019-06-12 [place] [id number] Memoria 16:15:00 16:15:00 Pre-Reg r Nephrology 30 leonard davis 2019-06-12 2019-06-12 Ambulatory nullFlavo [facility] Family 3 [id number] Memoria 15:15:00 15:15:00 Pre-Reg r Medicine 31 leonard davis 2019-06-09 2019-06-10 Inpatient Chelsea BARRAGAN [facility] TELE [id number] [place] 10:05:00 17:55:[facility] 2019-[facility]14 Outpatient Chelsea BARRAGAN [facility] TELE [id number] [place] 21:36:00 19:00:00 EDUINJAMISON Alfaroa [facility] 2019-05-12 2019-05-13 Outpatient nullFlavo [facility] [id number] Memoria 20:40:00 04:59:59 r Care 33 l Lise Rameyann 2019-03-27 2019-03-28 Outpatient nullFlavo [facility] Family 3 [id number] Memoria 15:15:00 04:59:59 r Medicine 32 l Carrillo Zhang ryan 2019-01-05 2019-01-06 Between nullFlavo [facility] Family [id number] Memoria 19:00:16 19:00:16 Visit r Medicine 29 l Vizcainojoanne Zhang ryan 2019-01-02 2019-01-03 Between nullFlavo MG [id number] Memoria 15:02:37 15:02:37 Visit r Nephrology 27 l Carrillo Zhang ryan 2019-01-02 2019-01-03 [place] [id number] Memoria 18:45:00 04:59:59 r Nephrology 28 l Carrillo Zhang ryan 2019-01-02 2019-01-03 Outpatient nullFlavo MG Family 3 [id number] Memoria 14:15:00 04:59:59 r Medicine 22 l Carrillo Zhang ryan 2018-12-31 2019-01-01 Between nullFlavo MG [id number] Memoria 23:59:47 23:59:47 Visit r Nephrology 26 l Vizcainojoanne Zhang ryan 2018-12-27 2018-12-28 Between nullFlavo MG [id number] Memoria 22:00:33 22:00:33 Visit r Nephrology 24 l Carrillo Vicente ryan 2018-12-27 2018-12-28 Between nullFlavo MG [id number] Memoria 04:48:44 04:48:44 Visit r Nephrology 23 l Vizcainojoanne Zhang ryan 2018-11-14 2018-11-14 [place] [id number] Memoria 20:30:00 20:30:00 Pre-Reg r Nephrology 27 l Vizcaino Vicente davis 2018-11-14 2018-11-14 [place] [id number] Memoria 18:40:00 18:40:00 Pre-Reg r Nephrology 24 leonard davis 2018-11-07 2018-11-07 [place] [id number] Memoria 15:30:00 15:30:00 Pre-Reg r Internal 25 leonard Vizcaino 2018-07-11 2018-08-10 [place] [id number] Memoria 12:45:00 12:45:00 Pre-Reg r Internal 23 leonard Postberg 2018-07-18 2018-07-19 [place] [id number] Memoria 19:15:00 04:59:59 r Nephrology 26 leonard Zhang ryan 2018-07-18 2018-07-19 [place] [id number] Memoria 18:00:00 04:59:59 r Nephrology 21 l Carrillo Zhang ryan 2018-06-11 2018-06-12 Outpatient nullFlavo [facility] Family 3 [id number] Memoria 18:30:00 04:59:59 r Medicine 20 leonard Zhang ryan 2018-01-10 2018-01-11 [place] [id number] Memoria 16:00:00 04:59:59 r Nephrology 19 leonard Zhang ryan 2018-01-09 2018-01-10 Outpatient nullFlavo [facility] Family 3 [id number] Memoria 15:00:00 04:59:59 r Medicine 18 leonard Zhang ryan 2017-07-19 2017-07-19 Outpatient MHIE MHIE [id number] Memoria 10:40:00 10:40:00 16 leonard Barrios 2017-06-27 2017-06-27 Outpatient MHIE MHIE [id number] Memoria 11:30:00 11:30:00 17 leonard Barrios 2017-03-01 2017-03-01 Outpatient MHIE MHIE [id number] Memoria 11:40:00 11:40:00 11 leonard Barrios 2016-12-26 2016-12-26 Outpatient MHIE MHIE [id number] Memoria 14:30:00 14:30:00 15 leonard Barrios 2016-11-27 2016-11-27 Outpatient MHIE MHIE [id number] Memoria 10:00:00 10:00:00 08 leonard Barrios 2016-11-17 2016-11-17 Bedded nullFlavo [facility] [id number] Memoria 11:48:35 14:30:00 Outpatient connie Barrios 13 leonard Mares Karen clarisse 2016-11-09 2016-11-09 Outpatient JENNIFER JENNIFER [id number] Memoria 13:15:00 13:15:00 14 leonard Barrios 2016-10-18 2016-10-18 Outpatient JENNIFER JENNIFER [id number] Memoria 09:30:00 09:30:00 12 leonard Barrios 2016-10-18 2016-10-18 Outpatient JENNIFER JENNIFER [id number] Memoria 09:30:00 09:30:00 13 leonard Barrios 2016-10-12 2016-10-12 Outpatient JENNIFER JENNIFER [id number] Memoria 10:20:00 10:20:00 09 leonard Barrios 2016-07-13 2016-07-13 Outpatient JENNIFER JENNIFER [id number] Memoria 13:00:00 13:00:00 04 leonard Barrios 2016-05-24 2016-05-24 [id number] Memoria 11:15:00 11:15:00 06 leonard Barrios 2016-04-13 2016-05-13 OP Therapy nullFlavo SMR [id number] Memoria 13:00:00 04:59:00 Patients r Girish 03 leonard Barrios 2016-03-14 2016-04-13 OP Therapy nullFlavo SMR [id number] Memoria 17:39:00 04:59:00 Patients r Girish 02 leonard Barrios 2016-03-09 2016-04-08 OP Therapy nullFlavo SMR [id number] Memoria 19:00:00 04:59:00 Patients r [place] 01 leonard Barrios 2016-03-13 2016-03-14 Outpt Diag nullFlavo [facility] [address] [id number] Memoria 16:14:00 04:59:00 Services r Maryan 04 leonard Barrios [place] 2016-02-08 2016-03-09 OP Therapy nullFlavo SMR [place] [id number] Memoria 19:00:00 04:59:00 Patients r [place] 00 leonard Barrios 2016-03-02 2016-03-02 [facility] [id number] Memoria 10:20:00 10:20:00 01 l Denis 2016-02-29 2016-03-01 Outpt Diag nullFlavo [facility] [address] [id number] Memoria 14:59:00 04:59:00 Services r Outpatient 03 l Imaging Denis [place]oto 2016-01-20 2016-01-21 Outpt Diag nullFlavo [facility] [address] [id number] Memoria 18:11:00 04:59:00 Services r Outpatient 01 l Imaging Denis [place] 2015-12-30 2015-12-30 Outpatient nullFlavo [facility] [id number] Memoria 12:50:31 19:25:00 r l Denis 2015-11-30 2015-12-01 Outpt Diag nullFlavo [facility] [address] [id number] Memoria 12:58:00 05:59:00 Services r Outpatient 00 l Imaging Denis [place] 2015-11-19 2015-11-19 Outpatient IE [facility] [id number] Memoria 10:15:00 10:15:00 02 l Denis 2015-09-02 2015-09-02 Outpatient [facility] [id number] Memoria 11:30:00 11:30:00 00 l Denis 2013-12-18 2013-12-18 Outpatient nullFlavo [facility] [id number] Memoria 01:16:00 05:59:00 r Denis [id number] [facility] 1 Karen nn 2013-12-17 2013-12-17 Outpatient nullFlavo [id number] Memoria 19:16:00 19:16:00 r [place] 01 l Denis 2013-12-02 2013-12-02 Outpatient nullFlavo [id number] Memoria 19:43:00 19:43:00 r [place] 00 l [place] Results Test Description Test Time Test Comments Results Result Comments Source SARS-CoV-2 (COVID-19) RNA [Presence] in Respiratory sp ecimen by 2021-12-19 23:10:10 DANIEL with probe detection Test Item Value Reference Range Interpretation Comme nts SARS coronavirus RNA [Presence] in Isolate by DANIEL with probe Not de tected detection (test code = 77755-4) Whether patient is employed in a healthcare setting (test code = No 11330-2) Whether the patient has symptoms related to condition of interest Y es (test code = 39120-5) Whether the patient was hospitalized for condition of interest No (test code = 71856-4) Whether the patient was admitted to intensive care unit (ICU) for N o condition of interest (test code = 41067-4) Whether patient resides in a congregate care setting (test code = N o 93098-1) status (test code = 45943-4) No Date and time of symptom onset (test code = 81632-8) Unknown SARS-CoV-2 (COVID-19) RNA [Presence] in Respiratory specimen by DANIEL with probe [id number] 23:10:10 Test Item Value Reference Range Interpretation Comments SARS-CoV-2 (COVID-19) RNA Not detected [Presence] in Respiratory specimen by DANIEL with probe detection (test code = 69937-9) Whether patient is employed in a No healthcare setting (test code = 43940-8) Whether the patient has symptoms Yes related to condition of interest (test code = 35930-1) Whether the patient was No hospitalized for condition of interest (test code = 83737-6) Whether the patient was admitted No to intensive care unit (ICU) for condition of interest (test code = 78027-2) Whether patient resides in a No congregate care setting (test code = 75817-9) status (test code = No 80889-3) Date and time of symptom onset Unknown (test code = 23390-8) SARS-CoV-2 (COVID-19) RNA [Presence] in Respiratory specimen by DANIEL with probe [id number] 22:34:30 Test Item Value Reference Range Interpretation Comments SARS-CoV-2 (COVID-19) RNA Not detected Not-Detected [Presence] in Respiratory specimen by DANIEL with probe detection (test code = 93004-1) Whether patient is employed in a healthcare setting (test code = 35517-9) Whether the patient has symptoms related to condition of interest (test code = 24666-9) Patient was hospitalized because of this condition (test code = 89140-5) Whether the patient was admitted to intensive care unit (ICU) for condition of interest (test code = 97791-5) Whether patient resides in a congregate care setting (test code = 70608-8) SARS-CoV-2 (COVID-19) RNA [Presence] in Respiratory specimen by DANIEL with probe [id number] 22:35:42 Test Item Value Reference Range Interpretation Comments SARS-CoV-2 (COVID-19) RNA Not detected Not-Detected [Presence] in Respiratory specimen by DANIEL with probe detection (test code = 67262-5) Whether patient is employed in a healthcare setting (test code = 00188-4) Whether the patient has symptoms related to condition of interest (test code = 63549-7) Patient was hospitalized because of this condition (test code = 12162-7) Whether the patient was admitted to intensive care unit (ICU) for condition of interest (test code = 32680-4) Whether patient resides in a congregate care setting (test code = 29764-5) SARS-CoV-2 (COVID-19) RNA [Presence] in Respiratory specimen by DANIEL with probe jnuzxgqcd1172-08-68 22:46:10 Test Item Value Reference Range Interpretation Comments SARS-CoV-2 (COVID-19) RNA Not detected Not-Detected [Presence] in Respiratory specimen by DANIEL with probe detection (test code = 21420-4) Whether patient is employed in a healthcare setting (test code = 90612-7) Whether the patient has symptoms related to condition of interest (test code = 35804-9) Patient was hospitalized because of this condition (test code = 87626-2) Whether the patient was admitted to intensive care unit (ICU) for condition of interest (test code = 45089-0) Whether patient resides in a congregate care setting (test code = 82210-7) SARS-CoV-2 (COVID-19) RNA [Presence] in Respiratory specimen by DANIEL with probe pyffowabj3808-88-28 01:54:24 Test Item Value Reference Range Interpretation Comments SARS-CoV-2 (COVID-19) RNA Not detected Not-Detected [Presence] in Respiratory specimen by DANIEL with probe detection (test code = 49260-3) Whether patient is employed in a healthcare setting (test code = 12976-7) Whether the patient has symptoms related to condition of interest (test code = 36549-8) Patient was hospitalized because of this condition (test code = 98723-3) Whether the patient was admitted to intensive care unit (ICU) for condition of interest (test code = 49686-4) Whether patient resides in a congregate care setting (test code = 60906-1) SARS-CoV-2 (COVID-19) RNA [Presence] in Respiratory specimen by DANIEL with probe jfmgfdhys5816-91-45 21:44:06 Test Item Value Reference Range Interpretation Comments SARS-CoV-2 (COVID-19) RNA Not detected Not-Detected [Presence] in Respiratory specimen by DANIEL with probe detection (test code = 56182-7) Whether patient is employed in a healthcare setting (test code = 11235-9) Whether the patient has symptoms related to condition of interest (test code = 95508-4) Patient was hospitalized because of this condition (test code = 05038-3) Whether the patient was admitted to intensive care unit (ICU) for condition of interest (test code = 70703-4) Whether patient resides in a congregate care setting (test code = 91261-6) SARS-CoV-2 (COVID-19) RNA [Presence] in Respiratory specimen by DANIEL with probe uowriodfo7851-10-84 00:36:59 Test Item Value Reference Range Interpretation Comments SARS-CoV-2 (COVID-19) RNA Not detected Not-Detected [Presence] in Respiratory specimen by DANIEL with probe detection (test code = 63566-9) SARS-CoV-2 (COVID-19) RNA [Presence] in Respiratory specimen by DANIEL with probe uqeoxymyx5070-43-99 17:35:35 Test Item Value Reference Range Interpretation Comments SARS-CoV-2 (COVID-19) RNA Not detected Not-Detected [Presence] in Respiratory specimen by DANIEL with probe detection (test code = 71343-2) SARS-CoV-2 (COVID-19) RNA [Presence] in Respiratory specimen by DANIEL with probe hsdtfujag3262-58-55 18:03:30 Test Item Value Reference Range Interpretation Comments SARS-CoV-2 (COVID-19) RNA Not detected Not-Detected [Presence] in Respiratory specimen by DANIEL with probe detection (test code = 68568-4) SARS-CoV-2 (COVID-19) RNA [Presence] in Respiratory specimen by DANIEL with probe ymauggnfi0428-06-66 10:06:03 Test Item Value Reference Range Interpretation Comments SARS-CoV-2 (COVID-19) RNA Not detected Not-Detected [Presence] in Respiratory specimen by DANIEL with probe detection (test code = 51017-3) SARS-CoV-2 (COVID-19) RNA [Presence] in Respiratory specimen by DANIEL with probe rjcqlstkw8744-51-36 05:11:58 Test Item Value Reference Range Interpretation Comments SARS-CoV-2 (COVID-19) RNA Not detected Not-Detected [Presence] in Respiratory specimen by DANIEL with probe detection (test code = 01589-4) SARS-CoV-2 (COVID-19) RNA [Presence] in Respiratory specimen by DANIEL with probe ztnujhipt2473-88-50 03:34:16 Test Item Value Reference Range Interpretation Comments SARS-CoV-2 (COVID-19) RNA Not detected Not-Detected [Presence] in Respiratory specimen by DANIEL with probe detection (test code = 98876-8) SARS-CoV-2 (COVID-19) RNA [Presence] in Respiratory specimen by DANIEL with probe sbguwtngp7988-60-57 10:06:41 Test Item Value Reference Range Interpretation Comments SARS-CoV-2 (COVID-19) RNA Not detected Not-Detected [Presence] in Respiratory specimen by DANIEL with probe detection (test code = 31888-9) [id number] 12:33:00 Test Item Value Reference Range Interpretation Comments Chol (test code = Chol) 129 [facility] 12:33:00 Test Item Value Reference Range Interpretation Comments HDL (test code = HDL) 37 [facility]NqddopaUNVYZY5312-46-41 12:33:00 Test Item Value Reference Range Interpretation Comments Trig (test code = Trig) 76 [facility]KennclkONQCEC6011-57-22 12:33:00 Test Item Value Reference Range Interpretation Comments LDL (Calculated) (test code = LDL 76 (Calculated)) [facility]SjatvfmBOJTHI4846-10-24 12:33:00 Test Item Value Reference Range Interpretation Comments CHD Risk (test code = CHD Risk) 3.5 [facility]PltjvmrGKVNVQ9003-83-05 12:33:00 Test Item Value Reference Range Interpretation Comments Non HDL Chol (test code = Non HDL Chol) 92 [facility] ZOCRS7616-45-82 14:47:00 Test Item Value Reference Range Interpretation Comments Vitamin D, 25-OH, Total (test code = 37 30-100 Vitamin D, 25-OH, Total) [facility]2020-08-06 14:47:00 Test Item Value Reference Range Interpretation Comments U Creat mg/dL (test code = U Creat 114 20-275 mg/dL) [place] 693720-08-06 14:47:00 Test Item Value Reference Range Interpretation Comments U Prot/Creat (test code = U Prot/Creat) 430 21-161 [place] 693720-08-06 14:47:00 Test Item Value Reference Range Interpretation Comments U Prot/Creat (test code = U 0.430 1 0.021-0.161 Prot/Creat) [place] 693720-08-06 14:47:00 Test Item Value Reference Range Interpretation Comments U Protein (test code = U Protein) 49 5-24 [place] 693720-08-06 14:47:00 Test Item Value Reference Range Interpretation Comments Glucose Lvl (test code = Glucose Lvl) 103 65-99 [place] 693720-08-06 14:47:00 Test Item Value Reference Range Interpretation Comments BUN (test code = BUN) 24 7-25 [place] 693720-08-06 14:47:00 Test Item Value Reference Range Interpretation Comments Creatinine Lvl (test code = Creatinine 1.32 0.50-0.99 Lvl) [facility]2020-08-06 14:47:00 Test Item Value Reference Range Interpretation Comments eGFR NON-AFR. WELSH (test code = 43 eGFR NON-AFR. WELSH) [place] 693720-08-06 14:47:00 Test Item Value Reference Range Interpretation Comments eGFR (test code = eGFR 50 ) [place] 693720-08-06 14:47:00 Test Item Value Reference Range Interpretation Comments B/C Ratio (test code = B/C Ratio) 18 6-22 [place] 693720-08-06 14:47:00 Test Item Value Reference Range Interpretation Comments Sodium Lvl (test code = Sodium Lvl) 138 135-146 [place] 693720-08-06 14:47:00 Test Item Value Reference Range Interpretation Comments Potassium Lvl (test code = Potassium 4.4 3.5-5.3 Lvl) [place] 693720-08-06 14:47:00 Test Item Value Reference Range Interpretation Comments Chloride Lvl (test code = Chloride Lvl) 102 98-110 [place] 693720-08-06 14:47:00 Test Item Value Reference Range Interpretation Comments CO2 (test code = CO2) 30 20-32 [place] 693720-08-06 14:47:00 Test Item Value Reference Range Interpretation Comments Calcium Lvl (test code = Calcium Lvl) 9.4 8.6-10.4 [place] [address]-08-06 14:47:00 Test Item Value Reference Range Interpretation Comments Phosphorus (test code = Phosphorus) 4.8 2.5-4.5 [place] 693720-08-06 14:47:00 Test Item Value Reference Range Interpretation Comments Albumin Lvl (test code = Albumin Lvl) 3.9 3.6-5.1 [place] [address]-08-06 14:47:00 Test Item Value Reference Range Interpretation Comments Plt Count Estimated (test code = DECREASED Plt Count Estimated) [place] [address]-08-06 14:47:00 Test Item Value Reference Range Interpretation Comments WBC X 10x3 (test code = WBC X 10x3) 7.2 3.8-10.8 [place] [address]-08-06 14:47:00 Test Item Value Reference Range Interpretation Comments RBC X 10x6 (test code = RBC X 10x6) 3.71 3.80-5.10 [place] [address]-08-06 14:47:00 Test Item Value Reference Range Interpretation Comments Hgb (test code = Hgb) 10.7 11.7-15.5 [place] [address]-08-06 14:47:00 Test Item Value Reference Range Interpretation Comments Hct (test code = Hct) 33.9 35.0-45.0 [place] [address]-08-06 14:47:00 Test Item Value Reference Range Interpretation Comments MCV (test code = MCV) 91.4 80.0-100.0 [place] [address]-08-06 14:47:00 Test Item Value Reference Range Interpretation Comments MCH (test code = MCH) 28.8 pg 27.0-33.0 [place] [address]-08-06 14:47:00 Test Item Value Reference Range Interpretation Comments MCHC (test code = MCHC) 31.6 32.0-36.0 [facility]OcgrnpmQLUKYWPNVH2517-88-56 14:47:00 Test Item Value Reference Range Interpretation Comments RDW (test code = RDW) 13.9 11.0-15.0 [facility]villeHtleouwAFWEZFNRGA2601-18-27 14:47:00 Test Item Value Reference Range Interpretation Comments Platelet (test code = Platelet) 110 140-400 [facility]villeMscnoptNVKDTAEALR8780-05-38 14:47:00 Test Item Value Reference Range Interpretation Comments MPV (test code = MPV) 11.7 7.5-12.5 [facility]villeHqdrvqjVIZILUKTTD5685-55-63 14:47:00 Test Item Value Reference Range Interpretation Comments Neutrophils # (test code = Neutrophils 5414 0411-8046 #) [facility]villeUeqbwcpZVZHRVPSBI4057-86-74 14:47:00 Test Item Value Reference Range Interpretation Comments Lymphocytes # (test code = Lymphocytes 9274 965-1330 #) [facility]villeErdmmsqYJHNZYJEMI7958-65-91 14:47:00 Test Item Value Reference Range Interpretation Comments Monocytes # (test code = Monocytes #) 461 200-950 [facility] StephenvilleJoljiasHKVNIRIPVL8042-36-10 14:47:00 Test Item Value Reference Range Interpretation Comments Eosinophils # (test code = Eosinophils 122 15-500 #) [facility]villeXwvlahbNUHSCJYDYX5311-63-32 14:47:00 Test Item Value Reference Range Interpretation Comments Basophils # (test code 50 See_Comment [Aut omated message] The = Basophils #) system which generated this result tra nsmitted reference range : <=200. The reference r edy was not used to int erpret this result as normal/abnormal . [facility]villeDiqwulaHOFWTEQOOS5258-51-28 14:47:00 Test Item Value Reference Range Interpretation Comments Segs (test code = Segs) 75.2 [facility]villeIdywdsdPFDYWGXEIZ4031-75-03 14:47:00 Test Item Value Reference Range Interpretation Comments Lymphocytes (test code = Lymphocytes) 16.0 [facility]villeZcwhjyaSBVNPOXFWU3265-45-33 14:47:00 Test Item Value Reference Range Interpretation Comments Monocytes (test code = Monocytes) 6.4 [facility]villeKbtvujgZKHCKCBSMA8583-84-18 14:47:00 Test Item Value Reference Range Interpretation Comments Eosinophils (test code = Eosinophils) 1.7 [facility] StephenvilleDnkzbasTXZSLHTZFO7651-53-08 14:47:00 Test Item Value Reference Range Interpretation Comments Basophils (test code = Basophils) 0.7 [facility] WJAHKGA9622-21-08 14:47:00 Test Item Value Reference Range Interpretation Comments Result 2 (Urine Culture) See Result Comment (test code = Result 2 (Urine Culture)) [facility] ARPTJ9989[facility]31[facility]16 14:47:00 Test Item Value Reference Range Interpretation Comments UA Color (test code = UA Color) YELLOW [facility] EZFVB4956-61-75 14:47:00 Test Item Value Reference Range Interpretation Comments UA Turbidity (test code = UA CLOUDY Turbidity) [facility] [id number] 14:47:00 Test Item Value Reference Range Interpretation Comments UA Spec Grav (test code = UA Spec 1.017 1 1.001-1.035 Grav) [facility] [id number] 14:47:00 Test Item Value Reference Range Interpretation Comments UA pH (test code = UA pH) 5.5 1 5.0-8.0 [facility] [id number] 14:47:00 Test Item Value Reference Range Interpretation Comments UA Glucose (test code = UA Glucose) NEGATIVE [facility] [id number] 14:47:00 Test Item Value Reference Range Interpretation Comments UA Bili (test code = UA Bili) NEGATIVE [facility] [id number] 14:47:00 Test Item Value Reference Range Interpretation Comments UA Ketones (test code = UA Ketones) NEGATIVE [facility] [id number] 14:47:00 Test Item Value Reference Range Interpretation Comments UA Blood (test code = UA Blood) 1+ [facility] OXRMT0982-14-03 14:47:00 Test Item Value Reference Range Interpretation Comments UA Protein (test code = UA Protein) 1+ [facility] [id number] 14:47:00 Test Item Value Reference Range Interpretation Comments UA Nitrite (test code = UA Nitrite) POSITIVE [facility] [id number] 14:47:00 Test Item Value Reference Range Interpretation Comments UA Leuk Est (test code = UA Leuk Est) 2+ [facility] [id number] 14:47:00 Test Item Value Reference Range Interpretation Comments UA WBC (test code = UA WBC) > OR = 60 [facility] [id number] 14:47:00 Test Item Value Reference Range Interpretation Comments UA RBC (test code = UA RBC) 0-2 [facility] [id number] 14:47:00 Test Item Value Reference Range Interpretation Comments UA Sq Epi (test code = UA Sq Epi) NONE SEEN [facility] [id number] 14:47:00 Test Item Value Reference Range Interpretation Comments UA Bacteria (test code = UA Bacteria) MANY [facility] [id number] 14:47:00 Test Item Value Reference Range Interpretation Comments UA Hyal Cast (test code = UA Hyal NONE SEEN Cast) [facility] AND [id number] 14:47:00 Test Item Value Reference Range Interpretation Comments UA Reflex (test code CULTURE INDICATED - = UA Reflex) RESULTS TO FOLLOW [facility]2020-08-06 14:47:00 Test Item Value Reference Range Interpretation Comments U Creat mg/dL (test code = U Creat 114 20-275 mg/dL) [facility] [id number] 14:47:00 Test Item Value Reference Range Interpretation Comments U Alb (test code = U Alb) 16.7 [facility] [id number] 14:47:00 Test Item Value Reference Range Interpretation Comments U Alb/Crea (test code = U Alb/Crea) 146 [facility] PROTEIN ELECTROPHORESIS-24HR [id number] 08:01:00 Test Item Value Reference Range Interpretation Comments CREATININE, 24 HOUR 1.45 g/24 h 0.50-2.15 URINE (test code = 56906272) PROTEIN/CREATININE 292 mg/g creat < OR = 114 H RATION (test code = 98005794) PROTEIN, TOTAL 24 HR UR 424 mg/24 h <150 H TEST PERFORMED (test code = 84752064) AT:[facility] [address] [place], [place] [address], [place] [address]RIBTPNIECY BOYCE MD ALBUMIN (test code = 35 % 06690613) AUUOP-9-UWNYBAMEX (test 10 % code = 69550214) NDJQV-1-DOMWTHIYW (test 12 % code = 67772236) BETA GLOBULINS (test 25 % code = 40860088) GAMMA GLOBULINS (test 18 % code = 54106642) INTERPRETATION (test Albumin and code = 29980781) various dann bulin fractions detected on proteinelectrop ho resis. No abnormal protei n bands (Bence-Jonespro te inuria) detected.TEST PERFORMED AT:[facility] [address] [address]FJUFZNIECY BOYCE MD NEUTROPHIL CYTOPLASMIC [id number] 05:19:00 Test Item Value Reference Range Interpretation Comments ANCA SCREEN (test NEGATIVE NEGATIVE ANCA Scree n includes code = 38640062) evaluation for p-ANCA, c-ANCA andatypi alexandre p-ANCA. [...] ofpat ients with Crohn's disease .TEST PERFORMED AT:[facility] [id number] [facility] [address]NRIKDOSCAR EISENBERG MD,PHD ,MICHI COMPREHENSIVE METABOLIC [id number] 06:25:00 Test Item Value Reference Range Interpretation [...] MORPH (test code = RBCMOR) NORMAL URINE [id number] 09:53:00 Test Item Value Reference Range Interpretation [...] = VD) 36.0 ng/mL 30.0-100.0 SERUM PROTEIN [id number] 06:20:00 Test Item Value Reference Range Interpretation Comments PROTEIN TOTAL (test 5.7 g/dL 6.1-8.1 L TEST PER FORMED AT:QUEST code = 83576016) DIAGNOSTICS -[id number] [facility] [place] [place] [address]JIDRFNIECY BOYCE MD ALBUMIN (test code = 3.2 g/dL 3.8-4.8 L 49565330) VPISF-8-FZEFRDWPW 0.4 g/dL 0.2-0.3 H (test code = 45071189) MBDHG-2-TAVLTVSQY 0.8 g/dL 0.5-0.9 (test code = [id number]) BETA 1 GLOBULIN (test 0.5 g/dL 0.4-0.6 code = 91550577) BETA 2 GLOBULIN (test 0.2 g/dL 0.2-0.5 code = 53765360) GAMMA GLOBULINS (test 0.6 g/dL 0.8-1.7 L code = 93439821) INTERPRETATION (test Pattern consistent with code = 84808868) an acute ph ase reactionConsist ent with hypogammaglobul inemia. Serum free ligh tchains or urine immuno fixation should be consi dered ifplasma cell d yscrasias are a possible clinicaldiagnos is.TEST PERFORMED AT[facility] [id number] [facility] [address]LEHVLNIECY BOYCE MD [id number] 06:13:00 Test Item Value Reference Range Interpretation Comments MAGNESIUM (test code = 48A) 1.7 mg/dL 1.8-2.4 L COMPREHENSIVE METABOLIC [id number] 06:13:00 Test Item Value Reference Range Interpretation [...] (test code = RBCMOR) NORMAL COMPREHENSIVE METABOLIC [id number] 05:30:00 Test Item Value Reference Range Interpretation [...] (test code = RBCMOR) NORMAL URINALYSIS WITH [id number] 06:44:00 Test Item Value Reference Range Interpretation [...] code = USPERM) /HPF NONE COMPREHENSIVE METABOLIC [id number] 05:24:00 Test Item Value Reference Range Interpretation [...] = RBCMOR) NORMAL U/S KIDNEY (RENAL)2019-06-06 23:20:42LOCATION: [id number]: 63-year-old female who presents with acute nontraumatic [...] jet was observed onthe color flow study.TROPONIN [id number] 07:14:00 Test Item Value Reference Range Interpretation Comments TROPONIN I (test code = A84) <0.015 ng/mL 0.000-0.045 COMPREHENSIVE METABOLIC [id number] 05:28:00 Test Item Value Reference Range Interpretation [...] (test code = RBCMOR) NORMAL COMPREHENSIVE METABOLIC [id number] 04:58:00 Test Item Value Reference Range Interpretation [...] (test code = MDIFF) NO NO CARDIAC [id number] 23:10:00 Test Item Value Reference Range Interpretation Comments TROPONIN I (test code = A84) <0.015 ng/mL 0.000-0.045 U/S VENOUS DOPPLER BALDO LOW [id number] 22:23:14LOCATION: [id number]: 63-year-old female who presents with bilateral leg swelling.COMMENT: [facility] imaging of the venous anatomy in [...] thrombosis in either of thispatient's legs. CARDIAC [id number] 16:50:00 Test Item Value Reference Range Interpretation Comments TROPONIN I (test code = A84) <0.015 ng/mL 0.000-0.045 BRAIN NATRIURETIC [id number] 14:39:00 Test Item Value Reference Range Interpretation Comments proBNP (test code = PBNP) 1337 pg/mL 0-125 H THYROID PANEL/SCREEN (TSH)2019-06-04 12:05:00 Test Item Value Reference Range Interpretation Comments TSH (test code = A57) 0.989 uIU/mL 0.358-3.740 [id number] 12:02:00 Test Item Value Reference Range Interpretation Comments CPK (test code = 32A) 98 IU/L 26-192 AMYLASE AND [id number] 12:02:00 Test Item Value Reference Range Interpretation Comments AMYLASE (test code = 10A) 19 U/L 28-100 L LIPASE (test code = 60A) 67 IU/L 73-393 L COMPREHENSIVE METABOLIC [id number] 12:02:00 Test Item Value Reference Range Interpretation [...] code = 31A) 41 IU/L <=78 TROPONIN [id number] 11:57:00 Test Item Value Reference Range Interpretation Comments TROPONIN I (test code = A84) <0.015 ng/mL 0.000-0.045 XR CHEST 1 VIEW [id number] 11:55:22EXAM: XR CHEST 1 VIEW PORTABLE.LOCATION: D4.HISTORY: [id number]: Chest pain.COMPARISON: Radiograph dated 05/12/2019.TECHNIQUE: Single AP view of the chest was obtained. FINDINGS:The heart is enlarged in size. Small left pleural effusion and left basilaropacities are present. There is elevation of the right hemidiaphragm. No acuteosseous abnormality is identified.IMPRESSION:Small left pleural effusion with left basilar opacities, which may representatelectasis or infiltrates.Cardiomegaly. PRO TIME AND [id number] 11:43:00 Test Item Value Reference Range Interpretation [...] (test code = RBCMOR) NORMAL CBC WITH [id number] 15:29:00 Test Item Value Reference Range Interpretation [...] NORMAL (1.5-3 um) NORMAL PLTMOR) BASIC METABOLIC [id number] 15:26:00 Test Item Value Reference Range Interpretation [...] code = 09D) 9.2 mg/dL 8.3-9.5 CARDIAC [id number] 06:04:00 Test Item Value Reference Range Interpretation Comments TROPONIN I (test code = A84) <0.015 ng/mL 0.000-0.045 BASIC METABOLIC [id number] 05:52:00 Test Item Value Reference Range Interpretation [...] MORPH (test code = RBCMOR) NORMAL CARDIAC [id number] 23:08:00 Test Item Value Reference Range Interpretation Comments TROPONIN I (test code = A84) <0.015 ng/mL 0.000-0.045 CT DISSECTION [id number] 19:26:35Exam: CT thorax PE protocol.Location: H 12History: [id number]: Chest painTechnique: Enhanced spiral slices were taken [...] code = A57) 0.706 uIU/mL 0.358-3.740 LIVER [id number] 18:28:00 Test Item Value Reference Range Interpretation [...] = 31A) 21 IU/L <=78 BRAIN NATRIURETIC [id number] 18:19:00 Test Item Value Reference Range Interpretation Comments proBNP (test code = PBNP) 518 pg/mL 0-125 H [id number] 18:15:00 Test Item Value Reference Range Interpretation Comments MAGNESIUM (test code = 48A) 1.9 mg/dL 1.8-2.4 [id number] 17:40:00 Test Item Value Reference Range Interpretation Comments D-DIMER (test code = <200 ng/mL D-DU 0-234 DDI) D-DIMER COMMENT (test *Level to rule out code = DDCOM) DVT or PE: <235 ng/mL D-DU* CARDIAC [id number] 17:31:00 Test Item Value Reference Range Interpretation Comments TROPONIN I (test code = A84) <0.015 ng/mL 0.000-0.045 BASIC METABOLIC [id number] 17:27:00 Test Item Value Reference Range Interpretation [...] LMW Heparin. Order Code is ANTI-XA PROTHROMBIN [id number] 17:26:00 Test Item Value Reference Range Interpretation Comments PT (test code = 12.0 s 9.8-13.6 TT) INR (test code = 1.1 INR) INRH (test code = SUGGESTED INRH) THERAPEUTIC RANGE FOR INR: 2.5 - 3.5 For Patients with Prosthetic Valves or Patients with recurrent Thromboembolic Events 2.0 - 3.0 For Most Other Applications XR CHEST 1 VIEW [id number] 17:04:28Portable AP chest, 1 viewLocation Code: [id number] HISTORY: Chest painCOMPARISON: NoneCOMMENT: Mild atelectasis is present within the lung bases. The costophrenic angles aresharp. The cardiomediastinalsilhouette is unremarkable. The bones are intact.IMPRESSION: Mild bibasilar atelectasis. Otherwise, no acute abnormalityCHEM [id number] 16:51:00 Test Item Value Reference Range Interpretation Comments Creatinine Lvl (test code = Creatinine 1.15 0.50-1.40 Lvl) [facility] [id number] 16:51:00 Test Item Value Reference Range Interpretation Comments BUN (test code = BUN) 16 05-12 [facility]2017-01-24 16:51:00 Test Item Value Reference Range Interpretation Comments Chloride Lvl (test code = Chloride Lvl) 109 95-109 [facility]2017-01-24 16:51:00 Test Item Value Reference Range Interpretation Comments Potassium Lvl (test code = Potassium 4.3 3.5-5.1 Lvl) [facility]2017-01-24 16:51:00 Test Item Value Reference Range Interpretation Comments Sodium Lvl (test code = Sodium Lvl) 144 135-145 [facility]2017-01-24 16:51:00 Test Item Value Reference Range Interpretation Comments CO2 (test code = CO2) 28 24-32 [facility]2017-01-24 16:51:00 Test Item Value Reference Range Interpretation Comments Calcium Lvl (test code = Calcium Lvl) 8.4 8.5-10.5 [facility]2017-01-24 16:51:00 Test Item Value Reference Range Interpretation Comments AGAP (test code = AGAP) 11.3 10.0-20.0 [facility]2017-01-24 16:51:00 Test Item Value Reference Range Interpretation Comments Glucose Lvl (test code = Glucose Lvl) 109 70-99 [facility]2017-01-24 16:51:00 Test Item Value Reference Range Interpretation Comments eGFR (test code = eGFR) 52 [facility]
[2022-01-01] MEDS ORDERED: NA CHLORIDE 0.9% 1,000 ML ONE (13:32)
[2022-01-01] MEDS ORDERED: LACTULOSE 20 GM/30 ML UCUP ONE (13:34)
[2022-01-01] MEDS ORDERED: BISACODYL 10 MG RECTAL SUPP ONE (13:34)
[2022-01-01 13:46] LABS: Absolute Lymphocytes (CBC) 0.9 K/uL (0.7-4.9); Hematocrit 39.9 % (36.0-45.0); Lymphocytes % 9.5 % (15.3-44.8); MPV 8.1 fL (7.6-11.3); RBC Red Blood Cell Count 4.09 M/uL (3.86-4.86)
[2022-01-01 13:50] LABS: Protime INR 1.21
[2022-01-01 14:09] LABS: Albumin 3.2 g/dL (3.4-5.0); Bilirubin Direct 0.3 mg/dL (0-0.2); Bilirubin Total 1.2 mg/dL (0.2-1.0); Magnesium 2.2 mg/dL (1.8-2.4); Potassium 4.3 mmol/L (3.5-5.1); Protein, Total 7.7 g/dL (6.4-8.2); Troponin High Sensitivity 31.1 pg/mL (<58.9)
--- NOTE | 2022-01-01 15:59 | RAD REPORT ---
EXAM DESCRIPTION: CTAbdomen Pelvis Wo Contrast - 01/01/2022 3:40 pm CLINICAL HISTORY: Abd pain;Constipation COMPARISON: Stone Protocol dated 10/26/2021tone Protocol dated 10/26/2021; Chest Single View dated 01/01 TECHNIQUE: CT of the abdomen and pelvis was performed. All CT scans are performed using dose optimization technique as appropriate and may include automated exposure control or mA/KV adjustment according to patient size. FINDINGS: Lower chest: Cardiomegaly. Dialysis catheter. Dependent atelectasis. Trace pleural fluid o n the right. Liver: No acute abnormality or suspicious lesions. Biliary: Biliary stent. Pneumobilia. Cholecystectomy. Stomach: No significant focal abnormality. Duodenum: No significant focal abnormality. Pancreas: No significant abnormality. Spleen: No significant abnormality. Adrenal: No suspicious lesions. Kidney/ureter: No hydronephrosis. Calcified contents within the collecting systems. No hydronephrosis . Bilateral renal scarring. Too small to characterize and/or benign appearing renal lesions are noted . Retroperitoneum: No retroperitoneal adenopathy. Vascular: No aneurysm. Bowel: Moderate stool in the colon .. Mild perirectal edema and rectal wall thickening. Peritoneum: Fluid collection along the inferior margin of the liver measuring 11.3 x 4.3 cm. The flui d is simple in appearance. It was also present on the CT from 10/26/2021. Bladder: Gas within the bladder. Reproductive: No adnexal masses. Tubal ligation clips. Bones: No acute fracture. L3 compression deformity is unchanged . Other: n/a IMPRESSION: Mild rectal wall thickening and perirectal stranding could represent a proctitis. Fluid collection along the inferior margin of the right hepatic lobe is unchanged. This has a simple appearance. Gas within the bladder is presumably related to instrumentation. Correlate with urinalysis.
--- NOTE | 2022-01-01 16:15 | RAD REPORT ---
EXAM DESCRIPTION: RAD - Chest Single View - 01/01/2022 3:53 pm CLINICAL HISTORY: COUGH COMPARISON: Chest Single View dated 11/02/2021; Chest Single View dated 10/26/2021 FINDINGS: Lines: Dialysis catheter. Lungs: Linear opacities at the right lung base. Pleural: No significant pleural effusions or pneumothorax. Cardiac: Mild cardiomegaly. Bones: No acute fractures. Other: IMPRESSION: Linear opacities at the right lung base likely reflecting atelectasis.
--- NOTE | 2022-01-01 16:49 | ER ---
Nurse's Notes [facility] Name: Kassie De Jesus Age: 66 yrs Sex: Female : 1955 Arrival Date: 01/01/2022 Time: 12:55 Bed 17 Private MD: Diagnosis: End stage renal disease-on HD;Left sided colitis with rectal bleeding;Constipation Presentation: 01/01 13:04 Chief complaint: Patient states: Has not had a bowel movement in 2 weeks since Sunday. ww Patient denies abdominal pain. Had back surgery at [facility] in [facility] and had a urinary stent removed on Sunday and placed on Nitrofurantin. Coronavirus screen: Client denies travel out of the [place] in the last 14 days. Ebola Screen: Patient denies travel to an Ebola-affected area in the 21 days before illness onset. Initial Sepsis Screen: Does the patient meet any 2 criteria? No. Patient's initial sepsis screen is negative. Does the patient have a suspected source of infection? No. Patient's initial sepsis screen is negative. Risk Assessment: Do you want to hurt yourself or someone else? Patient reports no desire to harm self or others. Onset of symptoms is unknown. 13:04 Method Of Arrival: Wheelchair ww 13:04 Acuity: LENI 3 ww Triage Assessment: 13:06 General: Appears in no apparent distress. Behavior is calm, cooperative. Pain: Denies ww pain. EENT: No signs and/or symptoms were reported regarding the EENT system. Neuro: Level of Consciousness is awake, alert, obeys commands, Oriented to person, place, time, situation, Speech is normal. Cardiovascular: Patient's skin is warm and dry. Respiratory: Airway is patent Respiratory effort is even, unlabored, Respiratory pattern is regular, symmetrical, wears 2L NC at home. GI: Reports constipation. : Reports makes very little urine. Historical: - Allergies: 13:06 cefepime; ww 13:06 Codeine; ww 13:06 PENICILLINS; ww 13:06 QUINOLONES; ww - PMHx: 13:06 Atrial fibrillation; Congestive heart failure; stage 4 kidney failure; Hypertensive ww disorder; High Cholesterol; Dialysis; - PSHx: 13:06 back surgery; ww - Immunization history:: Adult Immunizations Flu vaccine is up to date. - Social history:: Smoking status: Patient denies any tobacco usage or history of. - Family history:: not pertinent. Screenin:08 Abuse screen: Denies threats or abuse. Denies injuries from another. Nutritional ww screening: No deficits noted. Tuberculosis screening: No symptoms or risk factors identified. 15:00 Fall Risk IV access (20 points). Ambulatory Aid- Crutches/Cane/Walker (15 pts). Gait- jd3 Normal/Bed Rest/Wheelchair (0 pts) Mental Status- Oriented to own ability (0 pts). Total Smith Fall Scale indicates Low Risk Score (25-44 pts). Fall prevention measures have been instituted. Side Rails Up X 2 Placed close to Nursing Station Frequent Obs/Assesments occuring Family Present and informed to notify staff if they need to leave bedside. Assessment: 13:00 General: Appears in no apparent distress. Behavior is calm, cooperative, appropriate ag7 for age. Pain: Complains of pain in annus when attemting to defecate Pain does not radiate. Pain currently is 7 out of 10 on a pain scale. Quality of pain is described as aching, Pain began suddenly, Is intermittent, Alleviated by rest. Neuro: Level of Consciousness is awake, alert, obeys commands, Oriented to person, place, situation, Appropriate for age Lace Inspector are equal bilaterally. Cardiovascular: Heart tones S1 S2 present Capillary refill < 3 seconds Pulses are 1+ in right radial artery and left radial artery Edema is absent. Rhythm is regular. Respiratory: Airway is patent Trachea midline Respiratory effort is even, unlabored, Respiratory pattern is regular, symmetrical, Breath sounds are diminished bilaterally. GI: Abdomen is round distended, obese, Bowel sounds present in ascending, transverse colon bowel sounds are normoactive absent in descending, sigmoid Bruits are absent. Abd is soft and non tender X 4 quads. Reports constipation. 14:25 GI: Stools are reported to be large amount of stool noted. small amount of blood noted jd3 on stool. pt reports only small amount of abdominal pressure relief. . Last BM at 14:25. 14:51 Reassessment: Patient appears in no apparent distress at this time. No changes from jd3 previously documented assessment. Patient and/or family updated on plan of care and expected duration. Pain level reassessed. Patient is alert, oriented x 3, equal unlabored respirations, skin warm/dry/pink. 15:52 Reassessment: No changes from previously documented assessment. Patient and/or family ag7 updated on plan of care and expected duration. Pain level reassessed. Patient is alert, oriented x 3, equal unlabored respirations, skin warm/dry/pink. Patient denies pain at this time. Patient states feeling better. Patient states symptoms have improved. extra extra large bowel movement x1. 16:52 Reassessment: No changes from previously documented assessment. Patient and/or family ag7 updated on plan of care and expected duration. Pain level reassessed. Patient is alert, oriented x 3, equal unlabored respirations, skin warm/dry/pink. 17:52 Reassessment: No changes from previously documented assessment. Patient is alert, ag7 oriented x 3, equal unlabored respirations, skin warm/dry/pink. Vital Signs: 13:04 BP 91 / 71; Pulse 82; Resp 18; Temp 98.1; Pulse Ox 100% on 2 lpm NC; Weight 104.33 kg; ww Height 5 ft. 7 in. (170.18 cm); Pain 0/10; 13:09 BP 95 / 48; Pulse 80; Resp 18; Temp 98.1; Pulse Ox 100% on 2 lpm NC; dh4 15:00 BP 102 / 63; Pulse 83; Resp 17 S; Pulse Ox 100% on 2 lpm NC; jd3 16:02 BP 93 / 59; Pulse 71 MON; Resp 16 S; Pulse Ox 100% on R/A; Pain 0/10; ag7 17:07 BP 126 / 103 RA Sitting (man/lg); Pulse 77 MON; ag7 17:10 BP 96 / 41 RA Supine (man/lg); Pulse 41 MON; ag7 17:13 BP 43 / 27 RA Standing (man/lg); Pulse 82 MON; ag7 17:13 BP 120 / 51 RA Sitting (man/lg); Pulse 86 MON; ag7 17:50 BP 96 / 62 RA Sitting (man/lg); Pulse 97 MON; ag7 17:55 BP 119 / 95 RA Standing (man/lg); Pulse 79 MON; ag7 13:04 Body Mass Index 36.02 (104.33 kg, 170.18 cm) ww ED Course: 12:55 Patient arrived in ED. ds1 13:06 Triage completed. ww 13:06 Arm band placed on right wrist. ww 13:10 Pualine Marte, ARMANDO is Primary Nurse. ag7 13:13 Adrian Lin MD is Attending Physician. [place] 13:41 Inserted saline lock: 20 gauge in right antecubital area, using aseptic technique. dh4 Blood collected. 14:15 Notified ED physician of a critical lab result(s). Creatinine 7.8. ab2 14:24 Inserted saline lock: 22 gauge in left antecubital area, using aseptic technique. jd3 15:01 Patient has correct armband on for positive identification. Bed in low position. Call jd3 light in reach. Side rails up X2. Adult w/ patient. Pulse ox on. NIBP on. 15:39 Abdomen In Process Unspecified. EDMS 15:53 XRAY Chest (1 view) In Process Unspecified. EDMS 16:46 Adam King MD is Referral Physician. [place] 16:48 Isaiah Donald MD is Referral Physician. [place] 18:28 No provider procedures requiring assistance completed. IV discontinued, intact, ag7 bleeding controlled, No redness/swelling at site. Pressure dressing applied. Administered Medications: 18:33 Discontinued: NS 0.9% 1000 ml IV at 125 ml/hr continuous ag7 13:46 Drug: NS 0.9% 1000 ml Route: IV; Rate: 125 ml/hr; Site: right antecubital; ag7 13:46 Drug: Dulcolax (bisacodyl) Suppository 10 mg Route: MN; ag7 14:16 Follow up: Response: No adverse reaction ag7 13:46 Drug: Lactulose 60 grams Volume: 45 ml; Route: PO; ag7 14:16 Follow up: Response: No adverse reaction ag7 17:17 CANCELLED (Duplicate Order): Bactrim (trimethoprim-sulfamethoxazole) (160 mg-800 mg [place] (DS) 1 tablet PO once 17:24 Drug: ProTONIX (pantoprazole) 40 mg Route: IVP; Site: left antecubital; ag7 18:30 Follow up: Response: No adverse reaction ag7 17:25 Drug: Flagyl (metroNIDAZOLE) 500 mg Volume: 100 ml; Route: IVPB; Rate: 200 ml/hr; ag7 Infused Over: 30 mins; Site: left antecubital; 18:30 Follow up: Response: Adverse reaction, Physician notified ag7 17:31 Drug: Doxycycline 100 mg Route: PO; ag7 18:30 Follow up: Response: No adverse reaction; No change in condition ag7 Output: 17:49 Stool: 5 (Loose Stool) ; Total: 0ml. ag7 Outcome: 16:49 Discharge ordered by . trin[place] 18:28 Discharged to home via wheelchair, with family. ag7 18:28 Condition: stable 18:28 Discharge instructions given to patient, family, Instructed on discharge instructions, follow up and referral plans. medication usage, Demonstrated understanding of instructions, follow-up care, medications, Prescriptions given X 5 18:32 Patient left the ED. ag7 Signatures: Dispatcher [employer] EDMS Adrian Lin MD MD cha Sanford, Demi ds1 José Luis Ellison RN RN Cheikh Guerrero 4 Delia Engle RN RN ww Bleininger, Alexis ab2 Glenn, Angela, RN RN ag7
--- NOTE | 2022-01-01 16:50 | EDPHYS ---
Physician Documentation [facility] Name: Kassie De Jesus Age: 66 yrs Sex: Female : 1955 Arrival Date: 01/01/2022 Time: 12:55 Bed 17 Private MD: OSCAR Physician Adrian Lin HPI: 01/01 16:42 This 66 yrs old Female presents to ER via Wheelchair with complaints of tr[place] Constipation. 16:42 The patient presents with abdominal pain in the lower abdomen, abdominal distention in trin[place] the upper abdomen, in the lower abdomen. Onset: The symptoms/episode began/occurred 3 day(s) ago. The patient presents to the emergency department with rectal bleeding, a small amount, bright red blood with bowel movement. Onset: The symptoms/episode began/occurred today. Abdominal pain: located in the right lower quadrant and left lower quadrant. Modifying factors: The symptoms are alleviated by nothing. Associated signs and symptoms: The patient has no apparent associated signs or symptoms. The symptoms do not radiate. Associated signs and symptoms: Pertinent positives: constipation. Modifying factors: The symptoms are alleviated by nothing, the symptoms are aggravated by nothing. Historical: - Allergies: 13:06 cefepime; ww 13:06 Codeine; ww 13:06 PENICILLINS; ww 13:06 QUINOLONES; ww - PMHx: 13:06 Atrial fibrillation; Congestive heart failure; stage 4 kidney failure; Hypertensive ww disorder; High Cholesterol; Dialysis; - PSHx: 13:06 back surgery; ww - Immunization history:: Adult Immunizations Flu vaccine is up to date. - Social history:: Smoking status: Patient denies any tobacco usage or history of. - Family history:: not pertinent. ROS: 16:42 Constitutional: Negative for fever, chills, and weight loss, Eyes: Negative for injury, [place] pain, redness, and discharge, ENT: Negative for injury, pain, and discharge, Neck: Negative for injury, pain, and swelling, Cardiovascular: Negative for chest pain, palpitations, and edema, Respiratory: Negative for shortness of breath, cough, wheezing, and pleuritic chest pain, Back: Negative for injury and pain, : Negative for injury, bleeding, discharge, and swelling, MS/Extremity: Negative for injury and deformity, Skin: Negative for injury, rash, and discoloration, Neuro: Negative for headache, weakness, numbness, tingling, and seizure, Psych: Negative for depression, anxiety, suicide ideation, homicidal ideation, and hallucinations, Allergy/Immunology: Negative for hives, rash, and allergies, Endocrine: Negative for neck swelling, polydipsia, polyuria, polyphagia, and marked weight changes, Hematologic/Lymphatic: Negative for swollen nodes, abnormal bleeding, and unusual bruising. 16:42 Abdomen/GI: Positive for abdominal pain, of the right lower quadrant and left lower quadrant. Exam: 16:42 Constitutional: This is a well developed, well nourished patient who is awake, alert, [place] and in no acute distress. Head/Face: Normocephalic, atraumatic. Eyes: Pupils equal round and reactive to light, extra-ocular motions intact. Lids and lashes normal. Conjunctiva and sclera are non-icteric and not injected. Cornea within normal limits. Periorbital areas with no swelling, redness, or edema. ENT: Nares patent. No nasal discharge, no septal abnormalities noted. Tympanic membranes are normal and external auditory canals are clear. Oropharynx with no redness, swelling, or masses, exudates, or evidence of obstruction, uvula midline. Mucous membranes moist. Neck: Trachea midline, no thyromegaly or masses palpated, and no cervical lymphadenopathy. Supple, full range of motion without nuchal rigidity, or vertebral point tenderness. No Meningismus. Chest/axilla: Normal chest wall appearance and motion. Nontender with no deformity. No lesions are appreciated. Cardiovascular: Regular rate and rhythm with a normal S1 and S2. No gallops, murmurs, or rubs. Normal PMI, no JVD. No pulse deficits. Respiratory: Lungs have equal breath sounds bilaterally, clear to auscultation and percussion. No rales, rhonchi or wheezes noted. No increased work of breathing, no retractions or nasal flaring. Back: No spinal tenderness. No costovertebral tenderness. Full range of motion. Female : Normal external genitalia. Skin: Warm, dry with normal turgor. Normal color with no rashes, no lesions, and no evidence of cellulitis. MS/ Extremity: Pulses equal, no cyanosis. Neurovascular intact. Full, normal range of motion. Neuro: Awake and alert, GCS 15, oriented to person, place, time, and situation. Cranial nerves II-XII grossly intact. Motor strength 5/5 in all extremities. Sensory grossly intact. Cerebellar exam normal. Normal gait. Psych: Awake, alert, with orientation to person, place and time. Behavior, mood, and affect are within normal limits. 16:42 Abdomen/GI: Inspection: abdomen appears normal, Bowel sounds: normal, Palpation: mild abdominal tenderness, in the right lower quadrant and left lower quadrant, Rectal exam: Stool: guaiac positive, no melena, hemorrhoid(s), are not appreciated, mass, is not appreciated, swelling, is not appreciated, tenderness, is not appreciated, Liver: no appreciated palpable abnormalities, Hernia: not appreciated. Vital Signs: 13:04 BP 91 / 71; Pulse 82; Resp 18; Temp 98.1; Pulse Ox 100% on 2 lpm NC; Weight 104.33 kg; ww Height 5 ft. 7 in. (170.18 cm); Pain 0/10; 13:09 BP 95 / 48; Pulse 80; Resp 18; Temp 98.1; Pulse Ox 100% on 2 lpm NC; dh4 15:00 BP 102 / 63; Pulse 83; Resp 17 S; Pulse Ox 100% on 2 lpm NC; jd3 16:02 BP 93 / 59; Pulse 71 MON; Resp 16 S; Pulse Ox 100% on R/A; Pain 0/10; ag7 17:07 BP 126 / 103 RA Sitting (man/lg); Pulse 77 MON; ag7 17:10 BP 96 / 41 RA Supine (man/lg); Pulse 41 MON; ag7 17:13 BP 43 / 27 RA Standing (man/lg); Pulse 82 MON; ag7 17:13 BP 120 / 51 RA Sitting (man/lg); Pulse 86 MON; ag7 17:50 BP 96 / 62 RA Sitting (man/lg); Pulse 97 MON; ag7 17:55 BP 119 / 95 RA Standing (man/lg); Pulse 79 MON; ag7 13:04 Body Mass Index 36.02 (104.33 kg, 170.18 cm) ww MDM: 13:13 Patient medically screened. tr[place] 16:52 Differential diagnosis: gastritis, diverticulitis, hemorrhoids, varices, [place] diverticulitis, gastritis, gastroesophageal reflux disease, GI Bleed, non-specific abd pain, pancreatitis, Peptic Ulcer Disease, Ureterolithiasis, urinary tract infection. Data reviewed: vital signs, nurses notes, lab test result(s), EKG, radiologic studies, CT scan, plain films. Data interpreted: telemetry monitor: rate is 71 beats/min, rhythm is regular, Pulse oximetry: on room air is 100 %. Test interpretation: by ED physician or midlevel provider: ECG, plain radiologic studies. 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 01/01 13:16 Order name: Basic Metabolic Panel [facility] 01/01 13:16 Order name: CBC with Diff; Complete Time: 15:21 [facility] 01/01 13:16 Order name: LFT's; Complete Time: 15:21 [place] 01/01 13:16 Order name: Magnesium; Complete Time: 15:21 [place] 01/01 13:16 Order name: NT PRO-BNP; Complete Time: 15:21 01/01 13:16 Order name: PT-INR; Complete Time: 15:21 [place] 01/01 13:16 Order name: Troponin HS; Complete Time: 15:21 [place] 01/01 13:16 Order name: XRAY Chest (1 view); Complete Time: 16:16 [place] 01/01 13:16 Order name: Lipase; Complete Time: 15:21 [place] 01/01 13:17 Order name: Basic Metabolic Panel; Complete Time: 15:21 EDMS 01/01 13:39 Order name: Abdomen ; Complete Time: 16:16 EDMS 01/01 13:16 Order name: EKG; Complete Time: 13:17 01/01 13:16 Order name: Cardiac monitoring; Complete Time: 14:02 01/01 13:16 Order name: EKG - Nurse/Tech; Complete Time: 14:02 [place] 01/01 13:16 Order name: Labs collected and sent; Complete Time: 14:02 01/01 13:16 Order name: O2 Per Protocol; Complete Time: 14:02 01/01 13:16 Order name: O2 Sat Monitoring; Complete Time: 14:02 01/01 16:42 Order name: Orthostatics; Complete Time: 18:22 [place] Administered Medications: 18:33 Discontinued: NS 0.9% 1000 ml IV at 125 ml/hr continuous ag7 13:46 Drug: NS 0.9% 1000 ml Route: IV; Rate: 125 ml/hr; Site: right antecubital; ag7 13:46 Drug: Dulcolax (bisacodyl) Suppository 10 mg Route: NJ; ag7 14:16 Follow up: Response: No adverse reaction ag7 13:46 Drug: Lactulose 60 grams Volume: 45 ml; Route: PO; ag7 14:16 Follow up: Response: No adverse reaction ag7 17:17 CANCELLED (Duplicate Order): Bactrim (trimethoprim-sulfamethoxazole) (160 mg-800 mg [place]in[place] (DS) 1 tablet PO once 17:24 Drug: ProTONIX (pantoprazole) 40 mg Route: IVP; Site: left antecubital; ag7 18:30 Follow up: Response: No adverse reaction ag7 17:25 Drug: Flagyl (metroNIDAZOLE) 500 mg Volume: 100 ml; Route: IVPB; Rate: 200 ml/hr; ag7 Infused Over: 30 mins; Site: left antecubital; 18:30 Follow up: Response: Adverse reaction, Physician notified ag7 17:31 Drug: Doxycycline 100 mg Route: PO; ag7 18:30 Follow up: Response: No adverse reaction; No change in condition ag7 Disposition Summary: 01/01/22 16:49 Discharge Ordered Location: Home [place] Problem: new trin[place] Symptoms: have improved [place] Condition: Stable [place] Diagnosis - End stage renal disease - on HD [place] - Left sided colitis with rectal bleeding trin[place] - Constipation trin[place] Followup: trin[place] - With: Private Physician - When: 2 - 3 days - Reason: Recheck today's complaints, Continuance of care, Re-evaluation by your physician Followup: tr[place] - With: Adam King MD - When: 1 - 2 days - Reason: Recheck today's complaints, Re-evaluation by your physician Followup: [place] - With: Isaiah Donald MD - When: 1 - 2 days - Reason: Recheck today's complaints, Re-evaluation by your physician Discharge Instructions: - Discharge Summary Sheet trinidad - Dialysis trin[place] - Hemodialysis, Care After trin[place] - Colitis tr[place] - Eating Plan for Dialysis trin[place] - Hemodialysis, Stef-jn-Abot tr[place] Forms: - Medication Reconciliation Form tr[place] - Thank You Letter trin[place] - Antibiotic Education trin[place] - Prescription Opioid Use [facility] Prescriptions: - Flagyl 500 mg Oral Tablet - take 1 tablet by ORAL route every 8 hours for 7 days; 3 tablet; Refills: 0, [facility] Product Selection Permitted - Protonix 40 mg Oral Tablet - take 1 tablet by ORAL route once daily; 30 tablet; Refills: 0, Product [place] Selection Permitted - dicyclomine 20 mg Oral Tablet - take 1 tablet by ORAL route 4 times per day; 28 tablet; Refills: 0, Product [facility] Selection Permitted - Lactulose 10 gram/15 mL Oral Solution - take 30 milliliters by ORAL route once daily; 300 milliliter; Refills: 0, [facility] Product Selection Permitted - Doxycycline Hyclate 100 mg Oral Tablet - take 1 tablet by ORAL route every 12 hours; 20 tablet; Refills: 0, Product [facility] Selection Permitted Signatures: Dispatcher [employer] EDMS Adrian Lin MD MD cha Wood, Whitney RN RN ww Pauline Marte RN RN ag7 Corrections: (The following items were deleted from the chart) 13:39 13:17 Abdomen Pelvis W Con+[id number].RAD.BRZ ordered. EDMS EDMS 17:17 16:18 Bactrim (trimethoprim-sulfamethoxazole) (160 mg-800 mg (DS) 1 tablet PO once [facility] ordered. [facility]
[2022-01-01] MEDS ORDERED: PANTOPRAZOLE 40 MG INJ ONE (17:04)
[2022-01-01] MEDS ORDERED: SMZ./TMP. 800/160 MG TABLET ONE (17:04)
[2022-01-01] MEDS ORDERED: METRONIDAZOLE 500mg IVPB 500 MG/100 ML BAG IV ONE (17:05)
[2022-01-01] MEDS ORDERED: DOXYCYCLINE 100 MG CAP PO ONE (17:30)
[2022-01-01 18:54] VITALS: TEMP 98.1; O2SAT 100
[2022-01-01 19:03] VITALS: BP 119/95
== END 2022-01-01 18:32 | disposition home or self-care (01) ==
LOC: ER 12:53
DX: K51.511 Left sided colitis with rectal bleeding (principal); K59.00 Constipation, unspecified; I13.2 Hypertensive heart and chronic kidney disease with heart failure and with stage 5 chronic kidney disease, or end stage renal disease; N18.6 End stage renal disease; I50.9 Heart failure, unspecified; Z99.2 Dependence on renal dialysis; I48.91 Unspecified atrial fibrillation; E78.00 Pure hypercholesterolemia, unspecified; Z88.0 Allergy status to penicillin; Z88.5 Allergy status to narcotic agent; Z88.8 Allergy status to other drugs, medicaments and biological substances
CPT/HCPCS: 93005; 85025; 80048; 36415; 83735; 85610; 80076; 84484; 83690; 83880; 74176; 71045; 96375; 96374; 99284; C9113; J7030

== ENCOUNTER 2022-05-19 12:20 | Inpatient (IN) | payer OTHER, BC ==
[2022-05-19] MEDS ORDERED: NA CHLORIDE 0.9% 1,000 ML ONE (14:02)
--- NOTE | 2022-05-19 14:30 | RAD REPORT ---
EXAM DESCRIPTION: RAD - Chest Single View - 05/19/2022 2:23 pm CLINICAL HISTORY: MALAISE Chest pain. COMPARISON: Chest Single View dated 01/01/2022; Chest Single View dated 11/02/2021; Chest Single View dated 10/26/2021 FINDINGS: Portable technique limits examination quality. Atelectasis is present in the right lung base with elevation of right hemidiaphragm. Mild interstitia l pulmonary edema is present. The heart is moderately enlarged. Left-sided venous catheter is unchang ed in position. No displaced fractures. IMPRESSION: Mild CHF versus volume overload. Atelectasis in the right lung base with elevated right hemidiaphragm.
[2022-05-19 14:41] LABS: SARS-CoV-2 Antigen Rapid Res Negative (Negative)
--- NOTE | 2022-05-19 15:13 | ER ---
Nurse's Notes [facility] Name: Kassie De Jesus Age: 66 yrs Sex: Female : 1955 Arrival Date: 05/19/2022 Time: 12:22 Bed 4 Private MD: Ranjit Eagle Diagnosis: Weakness;Dyspnea;Unspecified diastolic (congestive) heart failure-Volume Overload;End stage renal disease-on HD;Diarrhea, unspecified;Hyperkalemia-7.3 Presentation: 05/19 13:15 Chief complaint: Patient states: has bene having diarrhea and nausea for days and has iw severe back pain and Dr. Eagle wanted some blood work done because she hasn't been to dialysis in 6 days. Coronavirus screen: Client presents with at least one sign or symptom that may indicate coronavirus-19. Ebola Screen: Patient negative for fever greater than or equal to 101.5 degrees Fahrenheit, and additional compatible Ebola Virus Disease symptoms Patient denies exposure to infectious person. Patient denies travel to an Ebola-affected area in the 21 days before illness onset. No symptoms or risks identified at this time. Initial Sepsis Screen: Does the patient meet any 2 criteria? No. Patient's initial sepsis screen is negative. Does the patient have a suspected source of infection? No. Patient's initial sepsis screen is negative. Risk Assessment: Do you want to hurt yourself or someone else? Patient reports no desire to harm self or others. Onset of symptoms was May 13, 2022. 13:15 Method Of Arrival: Wheelchair iw 13:15 Acuity: LENI 3 iw 15:27 Acuity: LENI 2 iw Historical: - Allergies: 13:17 cefepime; iw 13:17 Codeine; iw 13:17 PENICILLINS; iw 13:17 QUINOLONES; iw 13:17 Bactrim; iw - PMHx: 13:17 Atrial fibrillation; Congestive heart failure; Dialysis; High Cholesterol; Hypertensive iw disorder; stage 4 kidney failure; - PSHx: 13:17 back surgery; iw - Immunization history:: Client reports receiving the 2nd dose of the Covid vaccine. - Social history:: Smoking status: Patient denies any tobacco usage or history of. Screenin:32 Abuse screen: Denies threats or abuse. Denies injuries from another. Nutritional hb screening: No deficits noted. Tuberculosis screening: No symptoms or risk factors identified. Fall Risk None identified. Assessment: 14:32 General: Appears in no apparent distress. Behavior is calm, cooperative. Pain: Pain hb currently is 3 out of 10 on a pain scale. Neuro: Level of Consciousness is awake, alert, obeys commands, Oriented to person, place, time, situation. Cardiovascular: Patient's skin is warm and dry. Respiratory: Respiratory effort is even, unlabored, Respiratory pattern is regular, symmetrical. GI: Reports diarrhea, nausea. : No signs and/or symptoms were reported regarding the genitourinary system. EENT: No signs and/or symptoms were reported regarding the EENT system. Derm: Skin is pink, warm \T\ dry. Musculoskeletal: No signs and/or symptoms reported regarding the musculoskeletal system. 16:10 Reassessment: Patient appears in no apparent distress at this time. Patient and/or hb family updated on plan of care and expected duration. Pain level reassessed. Patient is alert, oriented x 3, equal unlabored respirations, skin warm/dry/pink. 17:30 Reassessment: Patient appears in no apparent distress at this time. Patient and/or hb family updated on plan of care and expected duration. Pain level reassessed. Patient is alert, oriented x 3, equal unlabored respirations, skin warm/dry/pink. 19:02 Reassessment: Patient appears in no apparent distress at this time. Patient and/or hb family updated on plan of care and expected duration. Pain level reassessed. Patient is alert, oriented x 3, equal unlabored respirations, skin warm/dry/pink. Vital Signs: 13:15 BP 135 / 53; Pulse 64; Resp 16; Temp 98.2; Pulse Ox 99% on R/A; Weight 104.33 kg; iw Height 5 ft. 7 in. (170.18 cm); 14:50 BP 141 / 79; Pulse 57; Resp 17; Pulse Ox 98% on 3 lpm NC; hb 16:10 BP 104 / 83; Pulse 71; Resp 21; Pulse Ox 98% on 3 lpm NC; hb 17:30 BP 125 / 70; Pulse 74; Resp 19; Pulse Ox 98% on 3 lpm NC; hb 19:02 BP 127 / 65; Pulse 74; Resp 22; Pulse Ox 98% on 3 lpm NC; hb 13:15 Body Mass Index 36.02 (104.33 kg, 170.18 cm) iw ED Course: 12:22 Patient arrived in ED. mr 12:23 Ranjit Eagle MD is Private Physician. mr 13:17 Triage completed. iw 13:17 Arm band placed on. iw 13:48 Adrian Lin MD is Attending Physician. trinidad 13:48 Tiffanie Yu RN is Primary Nurse. hb 14:11 Placed in gown. Bed in low position. Call light in reach. Side rails up X 1. Door mb7 closed. Noise minimized. Warm blanket given. 14:20 Inserted saline lock: 22 gauge in left antecubital area, using aseptic technique. Blood hb collected. 14:26 XRAY Chest (1 view) In Process Unspecified. EDMS 15:10 Ranjit Eagle MD is Hospitalizing Provider. trinidad 15:23 CT Abd/Pelvis - Without Contrast In Process Unspecified. EDMS 19:04 Primary Nurse role handed off by Tiffanie Yu RN eb Administered Medications: 15:13 Discontinued: NS 0.9% 1000 ml IV at 50 ml/hr continuous [place] 14:49 Drug: NS 0.9% 1000 ml Route: IV; Rate: 50 ml/hr; Site: left antecubital; hb 15:39 Drug: Insulin Regular Human 10 units {Co-Signature: ll1 (Morris Pitts RN).} Route: IVP; hb Site: left antecubital; 18:05 Follow up: Response: No adverse reaction hb 15:40 Drug: Albuterol - atroVENT (ipratropium) (3:1) (2.5 mg - 0.5 mg) 3 ml Route: Nebulizer; hb 18:05 Follow up: Response: No adverse reaction hb 15:40 Drug: Calcium Gluconate 1 grams Route: IVPB; Infused Over: 10 mins; Site: left hb antecubital; 18:06 Follow up: Response: No adverse reaction hb 15:40 Drug: Sodium Bicarbonate 1 amp Route: IVP; Site: left antecubital; hb 18:05 Follow up: Response: No adverse reaction hb 15:40 Drug: D50W 50 ml Route: IVP; Site: left antecubital; hb 18:05 Follow up: Response: No adverse reaction hb 15:41 Drug: Lasix (furosemide) 100 mg Route: IVP; Site: left antecubital; hb 18:05 Follow up: Response: No adverse reaction hb 15:54 Drug: Kayexalate (polystyrene) 60 grams Route: PO; hb 18:05 Follow up: Response: No adverse reaction hb Medication: 14:32 VIS not applicable for this client. hb Outcome: 15:12 Decision to Hospitalize by Provider. trin[place] 19:29 Patient left the ED. hb Signatures: Dispatcher [employer] EDMS Adrian Lin MD MD cha Rivera, Mary mr Williams, Irene, ARMANDO RN Tiffanie Yu RN RN Gabriela Fiore Mary 7 Morris Pitts RN ll1 Corrections: (The following items were deleted from the chart) 17:30 17:30 Reassessment: Patient appears in no apparent distress at this time. hb hb 17:31 14:50 BP 141 / 79; Pulse 57bpm; Resp 17bpm; Pulse Ox 98% RA; hb hb
--- NOTE | 2022-05-19 15:13 | EDPHYS ---
Physician Documentation [facility] Name: Kassie De Jesus Age: 66 yrs Sex: Female : 1955 Arrival Date: 05/19/2022 Time: 12:22 Bed 4 Private MD: Ranjit Eagle ED Physician Adrian Lin HPI: 05/19 14:56 This 66 yrs old Female presents to ER via Wheelchair with complaints of trinidad Diarrhea, Back Pain. Historical: - Allergies: 13:17 cefepime; iw 13:17 Codeine; iw 13:17 PENICILLINS; iw 13:17 QUINOLONES; iw 13:17 Bactrim; iw - PMHx: 13:17 Atrial fibrillation; Congestive heart failure; Dialysis; High Cholesterol; Hypertensive iw disorder; stage 4 kidney failure; - PSHx: 13:17 back surgery; iw - Immunization history:: Client reports receiving the 2nd dose of the Covid vaccine. - Social history:: Smoking status: Patient denies any tobacco usage or history of. ROS: 15:00 Constitutional: Negative for fever, chills, and weight loss, Eyes: Negative for injury, trinidad pain, redness, and discharge, ENT: Negative for injury, pain, and discharge, Neck: Negative for injury, pain, and swelling, Cardiovascular: Negative for chest pain, palpitations, and edema, Abdomen/GI: Negative for abdominal pain, nausea, vomiting, diarrhea, and constipation, Back: Negative for injury and pain, : Negative for injury, bleeding, discharge, and swelling, MS/Extremity: Negative for injury and deformity, Psych: Negative for depression, anxiety, suicide ideation, homicidal ideation, and hallucinations, Allergy/Immunology: Negative for hives, rash, and allergies, Endocrine: Negative for neck swelling, polydipsia, polyuria, polyphagia, and marked weight changes. 15:00 Respiratory: Positive for cough, shortness of breath. 15:00 Skin: Positive for pallor. 15:00 Neuro: Positive for weakness. Exam: 15:00 Constitutional: This is a well developed, well nourished patient who is awake, alert, trinidad and in no acute distress. Head/Face: Normocephalic, atraumatic. ENT: Nares patent. No nasal discharge, no septal abnormalities noted. Tympanic membranes are normal and external auditory canals are clear. Oropharynx with no redness, swelling, or masses, exudates, or evidence of obstruction, uvula midline. Mucous membranes moist. Neck: Trachea midline, no thyromegaly or masses palpated, and no cervical lymphadenopathy. Supple, full range of motion without nuchal rigidity, or vertebral point tenderness. No Meningismus. Chest/axilla: Normal chest wall appearance and motion. Nontender with no deformity. No lesions are appreciated. Cardiovascular: Regular rate and rhythm with a normal S1 and S2. No gallops, murmurs, or rubs. Normal PMI, no JVD. No pulse deficits. Respiratory: Lungs have equal breath sounds bilaterally, clear to auscultation and percussion. No rales, rhonchi or wheezes noted. No increased work of breathing, no retractions or nasal flaring. Abdomen/GI: Soft, non-tender, with normal bowel sounds. No distension or tympany. No guarding or rebound. No evidence of tenderness throughout. Back: No spinal tenderness. No costovertebral tenderness. Full range of motion. Female : Normal external genitalia. MS/ Extremity: Pulses equal, no cyanosis. Neurovascular intact. Full, normal range of motion. Neuro: Awake and alert, GCS 15, oriented to person, place, time, and situation. Cranial nerves II-XII grossly intact. Motor strength 5/5 in all extremities. Sensory grossly intact. Cerebellar exam normal. Normal gait. Psych: Awake, alert, with orientation to person, place and time. Behavior, mood, and affect are within normal limits. 15:00 Eyes: Conjunctiva: pale, bilaterally. 15:00 ECG was reviewed by the Attending Physician. Vital Signs: 13:15 BP 135 / 53; Pulse 64; Resp 16; Temp 98.2; Pulse Ox 99% on R/A; Weight 104.33 kg; iw Height 5 ft. 7 in. (170.18 cm); 14:50 BP 141 / 79; Pulse 57; Resp 17; Pulse Ox 98% on 3 lpm NC; hb 16:10 BP 104 / 83; Pulse 71; Resp 21; Pulse Ox 98% on 3 lpm NC; hb 17:30 BP 125 / 70; Pulse 74; Resp 19; Pulse Ox 98% on 3 lpm NC; hb 19:02 BP 127 / 65; Pulse 74; Resp 22; Pulse Ox 98% on 3 lpm NC; hb 13:15 Body Mass Index 36.02 (104.33 kg, 170.18 cm) iw MDM: 13:48 Patient medically screened. trinidad 15:03 Differential diagnosis: Nonspecific abd pain, gastritis, viral gastroenteritis, trinidad gastroenteritis. Data reviewed: vital signs, nurses notes, lab test result(s), EKG, radiologic studies, CT scan, plain films. Data interpreted: traffic monitor specialist: rate is 57 beats/min, rhythm is regular, Pulse oximetry: on room air is 98 %. Test interpretation: by ED physician or midlevel provider: ECG, plain radiologic studies. Counseling: I had a detailed discussion with the patient and/or guardian regarding: the historical points, exam findings, and any diagnostic results supporting the discharge/admit diagnosis, the presence of at least one elevated blood pressure reading (>120/80) during this emergency department visit, lab results, radiology results, the need for further work-up and treatment in the hospital. 05/19 13:27 Order name: Basic Metabolic Panel; Complete Time: 15:24 05/19 13:27 Order name: CBC with Diff iw 05/19 13:27 Order name: PT-INR; Complete Time: 15:24 iw 05/19 13:27 Order name: Troponin HS; Complete Time: 15:24 05/19 13:50 Order name: SARS RAPID; Complete Time: 14:56 [facility] 05/19 13:27 Order name: XRAY Chest (1 view); Complete Time: 14:36 05/19 14:47 Order name: Lipase; Complete Time: 15:24 [facility] 05/19 14:58 Order name: CT Abd/Pelvis - Without Contrast; Complete Time: 15:50 [facility] 05/19 13:27 Order name: EKG; Complete Time: 13:29 iw 05/19 13:27 Order name: Cardiac monitoring; Complete Time: 13:54 iw 05/19 13:27 Order name: EKG - Nurse/Tech; Complete Time: 14:24 05/19 13:27 Order name: IV Saline Lock; Complete Time: 14:49 iw 05/19 13:27 Order name: Labs collected and sent; Complete Time: 14:49 iw 05/19 13:27 Order name: O2 Per Protocol; Complete Time: 13:54 05/19 13:27 Order name: O2 Sat Monitoring; Complete Time: 13:54 iw 05/19 15:21 Order name: CONS Physician Consult EDMS EC:00 Rate is 58 beats/min. Rhythm is regular. QRS [place] is Normal. DE interval is prolonged trinidad at 234 msec. QRS interval is normal. QT interval is normal. No Q waves. T waves are Normal. No ST changes noted. Clinical impression: Sinus bradycardia and No evidence of ischemia. Interpreted by me. Administered Medications: 15:13 Discontinued: NS 0.9% 1000 ml IV at 50 ml/hr continuous trinidad 14:49 Drug: NS 0.9% 1000 ml Route: IV; Rate: 50 ml/hr; Site: left antecubital; hb 15:39 Drug: Insulin Regular Human 10 units {Co-Signature: ll1 (Morris Pitts RN).} Route: IVP; hb Site: left antecubital; 18:05 Follow up: Response: No adverse reaction hb 15:40 Drug: Albuterol - atroVENT (ipratropium) (3:1) (2.5 mg - 0.5 mg) 3 ml Route: Nebulizer; hb 18:05 Follow up: Response: No adverse reaction hb 15:40 Drug: Calcium Gluconate 1 grams Route: IVPB; Infused Over: 10 mins; Site: left hb antecubital; 18:06 Follow up: Response: No adverse reaction hb 15:40 Drug: Sodium Bicarbonate 1 amp Route: IVP; Site: left antecubital; hb 18:05 Follow up: Response: No adverse reaction hb 15:40 Drug: D50W 50 ml Route: IVP; Site: left antecubital; hb 18:05 Follow up: Response: No adverse reaction hb 15:41 Drug: Lasix (furosemide) 100 mg Route: IVP; Site: left antecubital; hb 18:05 Follow up: Response: No adverse reaction hb 15:54 Drug: Kayexalate (polystyrene) 60 grams Route: PO; hb 18:05 Follow up: Response: No adverse reaction hb Disposition Summary: 05/19/22 15:12 Hospitalization Ordered Provider: Ranjit Eagle cha Condition: Fair trinidad Problem: new trinidad Symptoms: have improved trinidad Bed/Room Type: Standard trinidad Hospitalization Status: Inpatient Admission(05/19/22 15:23) trinidad Location: Intensive Care Unit(05/19/22 15:44) trinidad Room Assignment: 1-(05/19/22 18:37) dw Diagnosis - Weakness trinidad - Dyspnea trinidad - Unspecified diastolic (congestive) heart failure - Volume Overload trinidad - End stage renal disease - on HD trinidad - Diarrhea, unspecified trinidad - Hyperkalemia - 7.3 trinidad Forms: - Medication Reconciliation Form trinidad - SBAR form trinidad Signatures: Dispatcher [employer] EDLiseth Luna RN RN dw Anderson, Corey, MD MD cha Williams, Irene, RN RN Tiffanie Yu RN RN Morris Pitts RN ll1 Corrections: (The following items were deleted from the chart) 14:46 14:09 LIPASE+C.LAB.BRZ ordered. [facility] EDMA 15:23 15:12 Observation trinidad trinidad 15:23 15:12 Telemetry/MedSurg (observation) trinidad trinidad 15:23 15:12 trinidad trinidad 15:44 15:23 Telemetry/MedSurg (Inpatient) trinidad trinidad 15:44 15:23 trinidad trinidad 18:37 15:44 trinidad dw
[2022-05-19 15:17] LABS: Protime INR 1.48
[2022-05-19 15:18] LABS: Troponin High Sensitivity 29.4 pg/mL (<58.9)
[2022-05-19 15:20] LABS: Potassium 7.3 mmol/L (3.5-5.1)
[2022-05-19] MEDS ORDERED: SODIUM BICARB 50 MEQ/50ML VIAL ONE (15:31)
[2022-05-19] MEDS ORDERED: INSULIN -REGULAR HUMAN 50 UNIT/0.5 ML ML ONE (15:31)
[2022-05-19] MEDS ORDERED: CALCIUM GLUCONATE 1 GM IVPB 1 GM/50 ML BAG IV ONE (15:32)
[2022-05-19] MEDS ORDERED: ALBUTEROL 2.5 MG/3 ML NEB SOL ONE (15:32)
[2022-05-19] MEDS ORDERED: DEXTROSE 10%-WATER 500 ML IV ONE (15:34)
--- NOTE | 2022-05-19 15:40 | RAD REPORT ---
EXAM DESCRIPTION: CT - Abdomen Pelvis Wo Contrast - 05/19/2022 3:21 pm CLINICAL HISTORY: Abdominal pain. Abdominal pain, acute, nonlocalized COMPARISON: Abdomen Pelvis Wo Contrast dated 01/01/2022 TECHNIQUE: CT imaging of the abdomen and pelvis was performed without contrast. Solid organ, bowel a nd vascular assessment is limited due to lack of IV and oral contrast. All CT scans are performed using dose optimization technique as appropriate and may include automated exposure control or mA/KV adjustment according to patient size. FINDINGS: Linear atelectasis is present both lung bases with trace bilateral pleural effusions. Localize fluid collection seen inferior to right lobe of the liver is again noted.This appears slight ly larger than on the prior study but pain is nonaggressive in appearance. Exact etiology of this les ion is unclear. Cholecystectomy. The spleen, pancreas and adrenal glands are normal. Stones present in the left pelvicaliceal system a re unchanged with atrophic left kidney. No hydronephrosis appear right kidney contains several simple appearing cysts. No hydronephrosis. Mild free fluid is seen in the pelvis. No bowel obstruction or free air. Vertebroplasty cement is noted in the L1 level.Mild compression deformity of L3 is unchanged. IMPRESSION: No acute intra-abdominal or pelvic findings. Right upper quadrant localized fluid collec tion is of unclear etiology appears mildly larger than on the prior study. It is nonaggressive in sabi earance. A limited non-contrast examination was performed as detailed.
[2022-05-19] MEDS ORDERED: SOD POLYSTYREN SUL 15 GM/60 ML UCUP ONE (15:51)
[2022-05-19] MEDS ORDERED: FUROSEMIDE 100 MG/10 ML VIAL IV ONE (15:51)
[2022-05-19 16:05] LABS: Absolute Lymphocytes (CBC) 1.9 K/uL (0.7-4.9); MCV 101.5 fL (80-100); MPV 8.7 fL (7.6-11.3); RBC Red Blood Cell Count 2.76 M/uL (3.86-4.86)
--- NOTE | 2022-05-19 17:03 | P.CNS ---
Date of Consult: 05/19/22 Allergies cefepime Allergy (Verified 10/26/21 06:30) Hives codeine Allergy (Verified 05/20/22 05:03) Itching levofloxacin Allergy (Verified 10/26/21 06:30) Hives/Rash morphine Allergy (Verified 05/20/22 05:03) Itching Penicillins Allergy (Verified 10/26/21 06:30) Hives/Rash sulfamethoxazole [From Bactrim] Allergy (Verified 05/20/22 05:03) Hives trimethoprim [From Bactrim] Allergy (Verified 05/20/22 05:03) Hives Home Medications: Apixaban [Eliquis] 1 tab PO BID 05/19/22 Atorvastatin Calcium 1 tab PO BEDTIME 05/19/22 Brimonidine Tartrate [Alphagan P] 1 drop EACH EYE BID 05/19/22 Bumetanide 1 tab PO DAILY 05/19/22 Diclofenac Na [Voltaren D.r*] 1 tab PO BID 05/19/22 Digoxin [Lanoxin] 1 tab PO T,TH,S 05/19/22 Folic Acid 1 tab PO DAILY 05/19/22 Glucosamine/D3/Boswellia Tiffany [Osteo Bi-Flex Tablet] 1 tab PO DAILY 05/19/22 Melatonin 1 tab SL BEDTIME 05/19/22 Metoprolol Tartrate 1 tab PO BID 05/19/22 Midodrine HCl 1 tab PO TID 05/19/22 Pantoprazole [Protonix Tab*] 1 tab PO DAILY 05/19/22 Promethazine HCl 1 tab PO TID PRN 05/19/22 Sevelamer Carbonate [Renvela] 2 tab PO TID 05/19/22 Sucroferric Oxyhydroxide [Velphoro] 1 tab PO DAILY 05/19/22 Tramadol HCl [Ultram] 1 tab PO Q12H 05/19/22 Diphenox/Atropine [Lomotil] 1 tab PO TIDP PRN 7 Days #20 tab 05/22/22 Promethazine Tab [Phenergan] 25 mg PO Q6HP PRN 7 Days #20 tab 05/22/22 - Past Medical/Surgical History Diabetic: No -: Chronic hypotension -: Hyperlipidemia -: Chronic anticoagulation use -: History of nephrolithiasis requiring stent placement -: Recurrent UTI -: End-stage renal disease -: tubal ligation -: dialysis port - Family History Sister Medical History: Cancer Notes: per pt, sister has lung cancer and is being treated for a "spot on her brain" - Social History Alcohol use: No CD- Drugs: No Caffeine use: No Physical Examination Laboratory Data (last 24 hrs) 05/19/22 14:34: PT 16.4 H, INR 1.48 05/19/22 14:34: Sodium 135 L, Potassium 7.3 H*, BUN 84 H, Creatinine 13.10 H*, Glucose 97, Lipase 86 05/19/22 13:50: Lipase Cancelled Conclusions/Impression: entered in error
--- NOTE | 2022-05-19 18:32 | P.HP ---
Certification for Inpatient Patient admitted to: Inpatient With expected LOS: >2 Midnights Practitioner: I am a practitioner with admitting privileges, knowledge of patient current condition, hospital course, and medical plan of care. Services: Services provided to patient in accordance with Admission requirements found in Title 42 Section 412.3 of the Code of Federal Regulations Patient History Date of Service: 05/19/22 Primary Care Provider: Fco Reason for admission: non compliance with dialysis History of Present Illness: Office patient of [employer]. She has a history of chf, esrd. The patient has covid 2 weeks ago. Was started on paxlovid. She developed some nausea and diarrhea this week. She was sent in some phenergan. However the patient was still having diarrhea. Brought her into the office today. She then revealed she had not been to dialysis since last Sunday. Her normal dialysis doctor is Dr. Loya. The patient was sent to the ER. Was found to have an elevated potassium and bun Allergies cefepime Allergy (Verified 10/26/21 06:30) Hives levofloxacin Allergy (Verified 10/26/21 06:30) Hives/Rash Penicillins Allergy (Verified 10/26/21 06:30) Hives/Rash Home Medications: Sulfamethoxazole/Trimethoprim [Bactrim 400-80 mg Tablet] 1 each PO BID 5 Days #10 tablet 10/26/21 - Past Medical/Surgical History Diabetic: No -: Chronic hypotension -: Hyperlipidemia -: Chronic anticoagulation use -: History of nephrolithiasis requiring stent placement -: Recurrent UTI -: End-stage renal disease -: tubal ligation -: dialysis port - Social History Alcohol use: No CD- Drugs: No Caffeine use: No Review of Systems 10-point ROS is otherwise unremarkable Gastrointestinal: Diarrhea Physical Examination - Physical Exam General: Alert, In no apparent distress HEENT: Atraumatic, PERRLA, Mucous membr. moist/pink, EOMI, Sclerae nonicteric Neck: Supple, 2+ carotid pulse no bruit, No LAD, Without JVD or thyroid abnormality Respiratory: Clear to auscultation bilaterally, Normal air movement Cardiovascular: Regular rate/rhythm, Normal S1 S2 Gastrointestinal: Normal bowel sounds, No tenderness Musculoskeletal: No tenderness Integumentary: No rashes Neurological: Normal gait, Normal speech, Normal strength at 5/5 x4 extr, Normal tone, Normal affect Lymphatics: No axilla or inguinal lymphadenopathy - Studies Laboratory Data (last 24 hrs) 05/19/22 14:34: PT 16.4 H, INR 1.48 05/19/22 14:34: Sodium 135 L, Potassium 7.3 H*, BUN 84 H, Creatinine 13.10 H*, Glucose 97, Lipase 86 05/19/22 13:50: Lipase Cancelled Assessment and Plan - Problems (Diagnosis) (1) ESRD (end stage renal disease) on dialysis Current Visit: No Status: Chronic Plan: Plans for dialysis with Dr. Arce (2) CHF (congestive heart failure) Current Visit: Yes Status: Chronic Plan: we can get a consult with Dr. Leon. she needs to establish with a local elementary school director. Will try getting a echocardiogram as we need a baseline assessment. Qualifiers: Heart failure type: unspecified Heart failure chronicity: chronic Qualified Code(s): I50.9 - Heart failure, unspecified (3) Back pain Current Visit: Yes Status: Chronic Plan: will give her pain medication in house. Will need to work up as an outpatient Qualifiers: Back pain location: low back pain (4) Non-compliance with renal dialysis Current Visit: Yes Status: Chronic Plan: She has only been in the area for a few months. This is her second admission for non compliance. She is not very good at follow up Discharge Plan: Home Plan to discharge in: 48 Hours - Advance Directives Does patient have a Living Will: No Does patient have a Durable POA for Healthcare: No - Code Status/Comfort Care Code Status Assessed: No Code Status: Full Code Physician Review: Patient Assessed, Agree with Above Assessment and Plan Critical Care: No Time Spent Managing Pts Care (In Minutes): 75
[2022-05-19] MEDS ORDERED: HYDRALAZINE HCL 20 MG/ML VIAL IV PRN (18:35)
[2022-05-19] MEDS ORDERED: ACETAMINOPHEN 500 MG TAB PO PRN (19:17)
[2022-05-19] MEDS ORDERED: ONDANSETRON 4 MG/2 ML VIAL IV PRN (19:17)
[2022-05-19] MEDS ORDERED: ALBUTEROL 2.5 MG/3 ML NEB SOL NEB PRN (19:17)
[2022-05-19] MEDS ORDERED: IPRATROPIUM BROM 0.5MG/2.5ML NEB PRN (19:17)
[2022-05-19] MEDS ORDERED: ACETAMINOPHEN 325 MG TABLET PO PRN (19:21)
[2022-05-19] MEDS ORDERED: SOD POLYSTYREN SUL 15 GM/60 ML UCUP PO SCH (19:30)
[2022-05-19] MEDS: HEPARIN 5000 UNIT/ML 1 ML VIAL SQ SCH (20:49)
[2022-05-20 05:35] LABS: Absolute Lymphocytes (CBC) 1.2 K/uL (0.7-4.9); Hematocrit 24.3 % (36.0-45.0); Lymphocytes % 21.6 % (15.3-44.8); MCV 104.6 fL (80-100); MPV 8.1 fL (7.6-11.3); RBC Red Blood Cell Count 2.33 M/uL (3.86-4.86)
[2022-05-20] MEDS: PANTOPRAZOLE 40MG TABLET PO SCH (05:41)
[2022-05-20] MEDS: HEPARIN 5000 UNIT/ML 1 ML VIAL SQ SCH ×2 (08:23→20:48)
[2022-05-20] MEDS: ONDANSETRON 4 MG/2 ML VIAL IV PRN ×3 (08:24→21:22)
[2022-05-20] MEDS: HYDROMORPHONE HCL 0.5 MG/0.5 ML INJ IV PRN ×2 (11:14→21:23)
--- NOTE | 2022-05-20 12:09 | P.PN ---
Subjective Date of Service: 05/20/22 Primary Care Provider: Fco Chief Complaint: non compliance with dialysis Subjective: No new changes Review of Systems 10-point ROS is otherwise unremarkable Gastrointestinal: Nausea Musculoskeletal: Back Pain Physical Examination - Vital Signs Temperature: 97.5 F Blood Pressure: 115/64 Pulse: 77 Respirations: 17 Pulse Ox (%): 98 - Physical Exam General: Alert, In no apparent distress HEENT: Atraumatic, PERRLA, EOMI Neck: Supple, JVD not distended Respiratory: Clear to auscultation bilaterally, Normal air movement Cardiovascular: Regular rate/rhythm, Normal S1 S2 Gastrointestinal: Normal bowel sounds, No tenderness Musculoskeletal: No tenderness Integumentary: No rashes Neurological: Normal speech, Normal tone, Normal affect Lymphatics: No axilla or inguinal lymphadenopathy - Studies Laboratory Data (last 24 hrs) 05/19/22 14:34: PT 16.4 H, INR 1.48 05/19/22 14:34: Sodium 135 L, Potassium 7.3 H*, BUN 84 H, Creatinine 13.10 H*, Glucose 97, Lipase 86 05/19/22 13:50: Lipase Cancelled Assessment And Plan - Current Problems (Diagnosis) (1) ESRD (end stage renal disease) on dialysis Current Visit: No Status: Chronic Plan: Her labs are improved. potassium is back to normal. Will continue dialysis with Dr. Powers (2) CHF (congestive heart failure) Current Visit: Yes Status: Chronic Plan: we can get a consult with Dr. Leon. she needs to establish with a local tensile tester. Will try getting a echocardiogram as we need a baseline assessment. Order an echo for Sunday Qualifiers: Heart failure type: unspecified Heart failure chronicity: chronic Qualified Code(s): I50.9 - Heart failure, unspecified (3) Back pain Current Visit: Yes Status: Chronic Plan: will give her pain medication in house. Will need to work up as an outpatient Qualifiers: Back pain location: low back pain (4) Non-compliance with renal dialysis Current Visit: Yes Status: Chronic Plan: She has only been in the area for a few months. This is her second admission for non compliance. She is not very good at follow up 05/20 Have discussed the patient with Dr. Powers. She is historically non co mpliant. He will offer her peritoneal dialysis again Discharge Plan: Home Plan to discharge in: Greater than 2 days - Code Status/Comfort Care Code Status Assessed: No Physician Review: Patient Assessed, Agree with Above Assessment and Plan Critical Care: No Time Spent Managing PTS Care (In Minutes): 20
[2022-05-20] MEDS ORDERED: EPOETIN ALFA 10,000 UNIT/ML VIAL IV SCH (12:45)
--- NOTE | 2022-05-20 13:39 | PN ---
Date of Progress Note: 05/20/2022 Subjective: The patient was admitted with end-stage renal disease, over volume, and hyperkalemia because she missed her dialysis multiple times over the week. The patient had dialysis yesterday, tolerated well. The patient is feeling well. The patient is waiting for echocardiogram on Sunday. Still has some shortness of breath. Scheduled for another session of dialysis today. Physical Examination: Vital Signs: Blood pressure 115/64, pulse of 77, afebrile. The patient had ultrafiltration of 1700 yesterday. Chest: Crackles bilateral, more prominent on the left side. Heart: S1, S2. Systolic murmur. Abdomen: Morbidly obese. Could not appreciate any organomegaly. Extremities: Trace edema. Neuro: Alert, no focality. Laboratory Data: WBC 5.5, H and H 8.4/24.3. Sodium 137, potassium 5, bicarb 26, BUN 43, creatinine 8, calcium 8.8, TSH 1.8. Current Medications: The patient on include: 1. Heparin. 2. Tylenol. 3. Breathing treatment. 4. Hydrocodone. Assessment And Plan: 1. End-stage renal disease, over volume with hyperkalemia status post dialysis yesterday. We will repeat another session of dialysis today. Then, we will go back to her schedule as TTS. 2. Hyperkalemia, resolved. The patient dialyzed on low-potassium bath. We will repeat the session today. 3. Over volume. The patient is going to be challenged again today. 4. Anemia of chronic kidney disease. I am going to go ahead and resume Retacrit for the patient. 5. Secondary hyperparathyroidism. We will follow up phos for level. 6. Deconditioning as by primary. 7. Congestive heart failure with exacerbation. We will challenge the patient today. We will follow up the progress. The patient is going to be scheduled for echocardiogram, Sunday. 8. Acidosis marginal, going to be corrected with dialysis. Time spent examining the patient [id number], reviewing the data, placing order, discussing with by bedside, discussing with staff member including charge nurse and nursing and hospitalist 45 minutes. SANAZ Voice ID: [id number] Report ID: [id number] SONDRA
[2022-05-20] MEDS: ACETAMINOPHEN 325 MG TABLET PO SCH (16:35)
--- NOTE | 2022-05-20 20:51 | CON ---
Date of Consultation: 05/20/2022 Reason For Consultation: Congestive heart failure. History Of Present Illness: This is a middle-aged female with history of end-stage renal disease, on hemodialysis, not compliant, dyslipidemia, hypertension, who presented to the emergency room with na usea and diarrhea. Denies having any chest pain. There is no shortness of breath. No orthopnea or cough. No other complaints. Past Medical History: As outlined above in the HPI. Medications: Refer reconciliation sheet for detailed list. Allergies: REVIEWED. REFER TO NURSE'S NOTES. Family History: No premature coronary artery disease or cancer. Social History: Does not smoke or drink. Does not use any drugs. Review of Systems: All systems reviewed and are negative except above mentioned in HPI. Physical Examination: Vital Signs: Reviewed. Head And Neck: Pupils are equal and reactive to light. Intact eye movements. No JVD. No cervical lymphadenopathy. Neck: Supple. Thyroid not enlarged. Lungs: Clear to auscultation bilaterally. No rhonchi, rales, or crackles. No accessory muscle use. Heart: Regular rate and rhythm. No extra sounds. Abdomen: Soft, nontender. Bowel sounds positive. Extremities: No clubbing or cyanosis. Intact pulses. Skin: No rash. Neurologic: Alert, awake, and oriented x3. No acute focal deficits are appreciated. Investigations: Troponins are negative. Her creatinine was 13 and now at 8.6. Hemoglobin is 8.4. Assessment And Recommendations: 1.History of diastolic congestive heart failure. She seems to be euvolemic now. Fluid management t o be carried on by Nephrology during dialysis to get her ideal dry body weight. From the cardiac sta ndpoint, the patient does not need any inpatient cardiac workup. We will plan for outpatient echo an d stress test. 2.End-stage renal disease, noncompliant. She is encouraged to stick to her schedule and the patient is being dialyzed as an inpatient and she appears to be comfortable. 3.Hypertension. Blood pressure is controlled. SR/MODL Voice ID: [id number] Report ID: [id number]
[2022-05-21] MEDS: ACETAMINOPHEN 325 MG TABLET PO SCH ×3 (00:57→16:42)
[2022-05-21] MEDS: PANTOPRAZOLE 40MG TABLET PO SCH (05:41)
[2022-05-21] MEDS: HYDROMORPHONE HCL 0.5 MG/0.5 ML INJ IV PRN ×3 (05:41→21:17)
[2022-05-21] MEDS: ONDANSETRON 4 MG/2 ML VIAL IV PRN (05:41)
[2022-05-21 06:20] LABS: Phosphorus 4.3 mg/dL (2.5-4.9); Potassium 4.5 mmol/L (3.5-5.1)
[2022-05-21] MEDS ORDERED: PROMETHAZINE 25 MG TABLET PO PRN (08:43)
[2022-05-21] MEDS: HEPARIN 5000 UNIT/ML 1 ML VIAL SQ SCH ×2 (09:11→21:16)
--- NOTE | 2022-05-21 11:28 | P.PN ---
Subjective Date of Service: 05/21/22 Primary Care Provider: Fco Chief Complaint: non compliance with dialysis Subjective: No new changes (Patient is complainting about nausea and diarrhea. She was asked about these symptoms by nursing and stated no to all these symptom s earlier) Review of Systems 10-point ROS is otherwise unremarkable Gastrointestinal: Nausea, Diarrhea Physical Examination - Vital Signs Temperature: 97.3 F Blood Pressure: 137/69 Pulse: 79 Respirations: 20 Pulse Ox (%): 96 - Physical Exam General: Alert, In no apparent distress HEENT: Atraumatic, PERRLA, EOMI Neck: Supple, JVD not distended Respiratory: Clear to auscultation bilaterally, Normal air movement Cardiovascular: Regular rate/rhythm, Normal S1 S2 Gastrointestinal: Normal bowel sounds, No tenderness Musculoskeletal: No tenderness Integumentary: No rashes Neurological: Normal speech, Normal tone, Normal affect Lymphatics: No axilla or inguinal lymphadenopathy Assessment And Plan - Current Problems (Diagnosis) (1) ESRD (end stage renal disease) on dialysis Current Visit: No Status: Chronic Plan: Her labs are improved. potassium is back to normal. Will continue dialysis with Dr. Powers (2) CHF (congestive heart failure) Current Visit: Yes Status: Chronic Plan: we can get a consult with Dr. Leon. she needs to establish with a local aircraft cleaning supervisor. Will try getting a echocardiogram as we need a baseline assessment. Order an echo for Sunday. Plans for discharge after cardiology consult and echo Qualifiers: Heart failure type: unspecified Heart failure chronicity: chronic Qualified Code(s): I50.9 - Heart failure, unspecified (3) Back pain Current Visit: Yes Status: Chronic Plan: will give her pain medication in house. Will need to work up as an outpatient Qualifiers: Back pain location: low back pain (4) Non-compliance with renal dialysis Current Visit: Yes Status: Chronic Plan: She has only been in the area for a few months. This is her second admission for non compliance. She is not very good at follow up 05/20 Have discussed the patient with Dr. Powers. She is historically non compliant. He will offer her peritoneal dialysis again Discharge Plan: Home - Code Status/Comfort Care Code Status Assessed: No Physician Review: Patient Assessed, Agree with Above Assessment and Plan Critical Care: No Time Spent Managing PTS Care (In Minutes): 20
--- NOTE | 2022-05-21 14:12 | PN ---
Date of Progress Note: 05/21/2022 Subjective: The patient was admitted with hyperkalemia, over volume. The patient received dialysis [id number], last dialysis yesterday, tolerated well. We managed to remove 2700. The patient is still on nasal cannula. Physical Examination: Vital Signs: Blood pressure 137/69, pulse of 79, afebrile. Chest: Crackles bilateral base. Heart: S1, S2. Systolic murmur. Abdomen: Soft, nontender. Extremity: No edema. Neuro: Alert. No focality. Laboratory Data: WBC 5.5, H and H 8.4/24.3. Sodium 138, potassium 4.5, bicarb 30, BUN 22, creatinine 0.5, calcium 8.8, phosphorus 4.3. Current Medications: The patient on include; 1. Epogen. 2. Breathing treatment. 3. Hydromorphone. Assessment And Plan: 1. End-stage renal disease, over volume. We are going to resume dialysis TTS. 2. Secondary hyperparathyroidism, stable. Continue current treatment. 3. Anemia of chronic kidney disease. Continue SABIHA. 4. Hypertension, controlled, optimal. We will continue to utilize blood pressure for ultrafiltration. 5. Congestive heart failure with exacerbation. The patient planned for echocardiogram tomorrow. We will follow up. Time spent examining the patient [id number], reviewing the data, placing order, discussing with by bedside, discussing with staff member including charge nurse and nursing and hospitalist 35 minutes. SANAZ Voice ID: [id number] Report ID: [id number] SONDRA
--- NOTE | 2022-05-21 14:23 | RAD REPORT ---
EXAM DESCRIPTION: RAD - Chest Single View - 05/21/2022 2:11 pm CLINICAL HISTORY: COPD COMPARISON: Chest Single View dated 05/19/2022; Chest Single View dated 01/01/2022; Chest Single View dated 11/02/2021; Chest Single View dated 10/26/2021 FINDINGS: Lines: Left IJ approach dialysis catheter with tip overlying the right atrium. Lungs: Low lung volumes which accentuates the pulmonary vasculature. Pleural: No significant pleural effusions or pneumothorax. Cardiac: Similar cardiomegaly . Bones: No acute fractures. Other: IMPRESSION: Similar low lung volumes. This accentuates the pulmonary vasculature.
--- NOTE | 2022-05-21 16:58 | EKG ---
Test Date: 2022-05-19 Test Time: 14:10:33 Digital Media Representative: MB MEASUREMENT RESULTS: Intervals: Rate: 58 TN: 234 QRSD: 92 QT: 386 QTc: 378 [place]: P: 35 TN: 234 QRS: 97 T: 7 INTERPRETIVE STATEMENTS: Sinus bradycardia with 1st degree AV block Rightward axis Low voltage QRS Incomplete right bundle branch block Cannot rule out Anterior infarct, age undetermined Abnormal ECG Electronically Signed On 05-21-22 16:57:25 CDT by Quentin Chamberlain
--- NOTE | 2022-05-21 17:07 | PN ---
Date of Progress Note: 05/21/2022 Subjective: Seen by bedside. Doing clinically well. No shortness of breath. No chest pain. Review of Systems: No chest pain, shortness of breath, orthopnea, cough. No nausea, vomiting, diarrhea. All other syst ems reviewed and they were negative. Physical Examination: Vital Signs: Reviewed. Head and Neck: Pupils are equal, reactive to light. Intact eye movements. No JVD. No cervical lym phadenopathy. Neck is supple. Thyroid is not enlarged. Lungs: Clear to auscultation bilaterally. No rhonchi, wheezing, or crackles. No accessory muscle u se. Heart: Regular rate and rhythm. No extra sounds. Abdomen: Soft, nontender. Bowel sounds positive. No organomegaly. No masses or hernia. No rigidi ty or rebound. Extremities: No edema, clubbing, or cyanosis. Intact pulses. Skin: No rash. Neurologic: Alert, awake. No acute focal deficits appreciated. Investigations: Creatinine 5.56 today and troponins were negative. Assessment And Recommendations: 1.Acute on chronic diastolic heart failure exacerbation, seems to be euvolemic after dialysis, doing well. Await on echocardiogram, which will be done tomorrow morning. I discussed the patient the im portance of being compliant with dialysis and she voiced understanding. 2.End-stage renal disease with fluid retention and very high creatinine due to noncompliance with di alysis, status post inpatient dialysis and the patient appears to be euvolemic at the present time. /MODL Voice ID: [id number] Report ID: [id number]
[2022-05-21] MEDS ORDERED: IBUPROFEN 400 MG TAB PO ONE (22:33)
[2022-05-22 00:29] VITALS: O2SAT 99
[2022-05-22] MEDS: ACETAMINOPHEN 325 MG TABLET PO SCH ×2 (00:34→09:55)
[2022-05-22 04:50] LABS: Albumin 2.8 g/dL (3.4-5.0); Phosphorus 5.3 mg/dL (2.5-4.9); Potassium 4.6 mmol/L (3.5-5.1)
[2022-05-22] MEDS: PANTOPRAZOLE 40MG TABLET PO SCH (06:20)
[2022-05-22 06:22] VITALS: BMI 35.8
[2022-05-22] MEDS: HEPARIN 5000 UNIT/ML 1 ML VIAL SQ SCH (09:55)
[2022-05-22 12:45] VITALS: BP 140/65; TEMP 97.5
--- NOTE | 2022-05-22 14:41 | ECHO ---
HEIGHT: 5 ft 7 in WEIGHT: 228 lb 9.6 oz DATE OF STUDY: 05/22/[address]: Ranjit Eagle MD 2-DIMENSIONAL: YES M.MODE: YES DOPPLER: YES COLOR FLOW: YES TDS: NO PORTABLE: YES DEFINITY: NO BUBBLE STUDY: NO DIAGNOSIS: CONGESTIVE HEART FAILURE CARDIAC HISTORY: CATHERIZATION: NO SURGERY: NO PROSTHETIC VALVE: NO PACEMAKER: NO MEASUREMENTS (cm) DIASTOLIC (NORMALS) SYSTOLIC (NORMALS) IVSd 1.1 (0.6-1.2) LA Diam 4.9 (1.9-4.0) LVEF 55% LVIDd 3.5 (3.5-5.7) LVIDs 2.5 (2.0-3.5) %FS 28% LVPWd 1.1 (0.6-1.2) Ao Diam 2.6 (2.0-3.7) 2 DIMENSIONAL ASSESSMENT: RIGHT ATRIUM: NORMAL LEFT ATRIUM: ENLARGED RIGHT VENTRICLE: NORMAL LEFT VENTRICLE: NORMAL TRICUSPID VALVE: MITRAL VALVE: PULMONIC VALVE: NORMAL AORTIC VALVE: NORMAL PERICARDIAL EFFUSION: NONE AORTIC ROOT: NORMAL LEFT VENTRICULAR WALL MOTION: NORMAL DOPPLER/COLOR FLOW: SEE BELOW COMMENTS: NORMAL LEFT VENTRICULAR EJECTION FRACTION 55-60% WITH NORMAL WALL MOTION. MODERATE TO SEVERE TRICUSPID AND MITRAL REGURGITATION. LEFT ATRIAL ENLARGEMENT. MODERATE DIASTOLIC DYSFUNCTION. SEVERE PULMONARY HYPERTENSION WITH RIGHT VENTRICULAR SYSTOLIC PRESSURE >60 mmHg. TECHNOLOGIST: Leonie IBRAHIM
--- NOTE | 2022-05-22 14:48 | P.DS ---
Admission Date: 05/20/22 Discharge Date: 05/22/22 Primary Care Provider: Fco Disposition: ROUTINE DISCHARGE Discharge Condition: GOOD Reason for Admission: non compliance with dialysis - Problems (1) ESRD (end stage renal disease) on dialysis Status: Chronic (2) CHF (congestive heart failure) Status: Chronic Qualifiers: Heart failure type: unspecified Heart failure chronicity: chronic Qualified Code(s): I50.9 - Heart failure, unspecified (3) Back pain Status: Chronic Qualifiers: Back pain location: low back pain (4) Non-compliance with renal dialysis Status: Chronic Brief History of Present Illness: 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 She has a history of chf, esrd. The patient has covid 2 weeks ago. Was started on paxlovid. She developed some nausea and diarrhea this week. She was sent in some phenergan. However the patient was still having diarrhea. Brought her into the office today. She then revealed she had not been to dialysis since last Sunday. Her normal dialysis doctor is Dr. Loya. The patient was sent to the ER. Was found to have an elevated potassium and bun Hospital Course: Patient was admitted for non compliance with dialysis. Was seen by Dr. Powers. Who ran his dialysis. The patient was also seen by Dr. Chamberlain. This was to establish with a local senior director finance. We have gotten an echocardiogram. Will discharge him today and have the patient follow up in the office. thank you for allowing me to take part in her care. Vital Signs/Physical Exam: Temp Pulse Resp BP Pulse Ox 97.5 F 78 16 140/65 100 05/22/22 12:00 05/22/22 12:05/22/22 12:00 05/22/22 12:05/22/22 12:00 General: Alert, In no apparent distress HEENT: Atraumatic, PERRLA, EOMI Neck: Supple, JVD not distended Respiratory: Clear to auscultation bilaterally, Normal air movement Cardiovascular: Regular rate/rhythm, Normal S1 S2 Gastrointestinal: Normal bowel sounds, No tenderness Musculoskeletal: No tenderness Integumentary: No rashes Neurological: Normal speech, Normal tone, Normal affect Lymphatics: No axilla or inguinal lymphadenopathy Laboratory Data at Discharge: WBC 5.5 K/uL (4.3-10.9) D 05/20/22 04:58 Hgb 8.4 g/dL (12.0-15.0) L 05/20/22 04:58 Hct 24.3 % (36.0-45.0) L 05/20/22 04:58 Plt Count 102 K/uL (152-406) L 05/20/22 04:58 PT 16.4 SECONDS (9.5-12.5) H 05/19/22 14:34 INR 1.48 05/19/22 14:34 Sodium 140 mmol/L (136-145) 05/22/22 03:26 Potassium 4.6 mmol/L (3.5-5.1) 05/22/22 03:26 BUN 24 mg/dL (7-18) H 05/22/22 03:26 Creatinine 7.04 mg/dL (0.55-1.3) H* D 05/22/22 03:26 Glucose 132 mg/dL (74-106) H 05/22/22 03:26 Phosphorus 5.3 mg/dL (2.5-4.9) H 05/22/22 03:26 Lipase 86 U/L (73-393) 05/19/22 14:34 Home Medications: Apixaban [Eliquis] 1 tab PO BID 05/19/22 Atorvastatin Calcium 1 tab PO BEDTIME 05/19/22 Brimonidine Tartrate [Alphagan P] 1 drop EACH EYE BID 05/19/22 Bumetanide 1 tab PO DAILY 05/19/22 Diclofenac Na [Voltaren D.r*] 1 tab PO BID 05/19/22 Digoxin [Lanoxin] 1 tab PO T,TH,S 05/19/22 Folic Acid 1 tab PO DAILY 05/19/22 Glucosamine/D3/Boswellia Tiffany [Osteo Bi-Flex Tablet] 1 tab PO DAILY 05/19/22 Melatonin 1 tab SL BEDTIME 05/19/22 Metoprolol Tartrate 1 tab PO BID 05/19/22 Midodrine HCl 1 tab PO TID 05/19/22 Pantoprazole [Protonix Tab*] 1 tab PO DAILY 05/19/22 Promethazine HCl 1 tab PO TID PRN 05/19/22 Sevelamer Carbonate [Renvela] 2 tab PO TID 05/19/22 Sucroferric Oxyhydroxide [Velphoro] 1 tab PO DAILY 05/19/22 Tramadol HCl [Ultram] 1 tab PO Q12H 05/19/22 Diphenox/Atropine [Lomotil] 1 tab PO TIDP PRN 7 Days #20 tab 05/22/22 Promethazine Tab [Phenergan] 25 mg PO Q6HP PRN 7 Days #20 tab 05/22/22 New Medications: Diphenox/Atropine [Lomotil] 1 tab PO TIDP PRN 7 Days #20 tab PRN Reason: Diarrhea Promethazine Tab [Phenergan] 25 mg PO Q6HP PRN 7 Days #20 tab PRN Reason: Nausea / Vomiting Diet: Renal Activity: Ad mari Followup: Ranjit Eagle MD [Primary Care Provider] - 1 Week (Call to schedule appointment. ) Quentin Chamberlain MD [ACTIVE - CAN ADMIT] - 1-2 Weeks (Call to schedule appointment.) Physician Review: Patient Assessed, Agree with Above Assessment and Plan Time spent managing pt's care (in minutes): 30
--- NOTE | 2022-05-22 17:50 | PN ---
Date of Progress Note: 05/22/2022 Subjective: Seen by bedside. She feels well. Does not have any chest pain or shortness of breath. Review of Systems: No chest pain, shortness of breath, orthopnea, cough. No nausea, vomiting, diarrhea. All other syst ems reviewed and they were negative. Physical Examination: Vital Signs: Reviewed. Head and Neck: Pupils are equal, reactive to light. Intact eye movements. No JVD. No cervical lym phadenopathy. Neck is supple. Thyroid is not enlarged. Lungs: Clear to auscultation bilaterally. No rhonchi, wheezing, or crackles. No accessory muscle u se. Heart: Regular rate and rhythm. No extra sounds. Abdomen: Soft, nontender. Bowel sounds positive. No organomegaly. No masses or hernia. No rigidi ty or rebound. Extremities: No clubbing or cyanosis. Intact pulses. Skin: No rash. Neurologic: Alert, awake. No acute focal deficits appreciated. Investigations: On echo; she has [id number]-[id number] MR and cnrnvcfa-[id number]-hdehmk TR, normal ejection fr action, and moderate diastolic dysfunction. Assessment And Recommendations: 1.Diastolic congestive heart failure. This is chronic. Needs fluid management through dialysis. T he patient understands to keep compliant with her dialysis sessions. 2.Mitral valve regurgitation, appears severe. However, recommend outpatient transesophageal echocar diogram to further assess the mitral valve and tricuspid valve. The patient likely will need surgica l intervention on the above valves. From my standpoint, this patient to be released and I will follow her up as an outpatient and arrange for REJI if the patient chooses to be compliant. /KWAN Voice ID: [id number] Report ID: [id number]
--- NOTE | 2022-05-22 22:29 | PN ---
Date of Progress Note: 05/22/2022 Chief Complaint: Hyperkalemia, fluid overload, end-stage renal disease. Patient presented to the [facility] because of nausea, vomiting, and diarrhea. She has multiple medical problems including histor y of congestive heart failure with diastolic dysfunction, obstructive sleep apnea, lymphedema, atrial fibrillation. The patient received dialysis with daily treatment to control severe hyperkalemia. S he was admitted to ICU when she was found to have potassium of 7.5. Azotemia has improved with dialy sis and potassium level stabilized. Potassium level today is within normal limits. She is due for d ialysis tomorrow. Volemia is in better control. Patient denies fever or chills. Physical Examination: Lungs: Clear to auscultation bilaterally. Heart: S1, S2. Abdomen: Soft. Extremities: Slight edema in both legs. Impression And Plan: 1.End-stage renal disease. Patient will have dialysis tomorrow. 2.Secondary hyperparathyroidism, stable. Patient is off calcitriol. Intact PTH was below target ra nge. 3.Anemia of chronic kidney disease. Continue SABIHA. 4.Hypertension, controlled. Continue to monitor fluid intake and fluid balance. Patient is to cont inue p.o. fluid restriction. 5.Congestive heart failure with exacerbation, acute on chronic with diastolic dysfunction. Patient is undergoing cardiac workup. The patient will continue low-sodium diet and p.o. fluid restriction. Plan is to advance ultrafiltration to treat fluid overload. 6.Intradialytic hypotension. Continue midodrine. EB/MODL Voice ID: [id number] Report ID: [id number]
== END 2022-05-22 14:05 | disposition home or self-care (01) | DRG 291 ==
LOC: ER 12:20 → ERHOLD 15:16 → 3RD-ICU 19:15 → OBSVTOIN 05-20 19:21 → 2ND 05-20 22:21
PROVIDERS: ADMIT Internal Medicine; ATTEND Internal Medicine
PROC: 5A1D70Z Performance of Urinary Filtration, Intermittent, Less than 6 Hours Per Day (ICD-10-PCS; 2022-05-19)
PROC: 5A1D70Z Performance of Urinary Filtration, Intermittent, Less than 6 Hours Per Day (ICD-10-PCS; principal; 2022-05-20)
DX: I13.2 Hypertensive heart and chronic kidney disease with heart failure and with stage 5 chronic kidney disease, or end stage renal disease (principal); N18.6 End stage renal disease; I50.33 Acute on chronic diastolic (congestive) heart failure; N25.81 Secondary hyperparathyroidism of renal origin; E87.2 Acidosis; E78.5 Hyperlipidemia, unspecified; E87.5 Hyperkalemia; D63.1 Anemia in chronic kidney disease; M54.9 Dorsalgia, unspecified; I34.0 Nonrheumatic mitral (valve) insufficiency; Z20.822 Contact with and (suspected) exposure to COVID-19; Z91.15 Patient's noncompliance with renal dialysis; Z79.01 Long term (current) use of anticoagulants; Z88.0 Allergy status to penicillin; Z86.16 Personal history of COVID-19; Z99.2 Dependence on renal dialysis
CPT/HCPCS: 36415; 71045; 74176; 80048; 80069; 82947; 83690; 84443; 84484; 85025; 85610; 86706; 87340; 87811; 90935; 93005; 93306; 94640; 96374; 96375; 97116; 97161; 97530; 99284; G0257; G0378; J0610; J1170; J1644; J1815; J2250; J2405; J7030; Q0169

== ENCOUNTER 2022-08-06 17:55 | Emergency (ER) | payer OTHER, BC ==
--- OUTSIDE RECORDS SUMMARY | 2022-08-06 18:09 | XMS REPORT | Continuity of Care Document ---
:1955 Author Organization [facility] t Address [address] [place] [address] Care Team Providers Name Role Phone Adam King Attending Clinician Unavailable MARY DYSON Attending Clinician Unavailable MARY HEATON Attending Clinician Unavailable MADDISON WHARTON Attending Clinician Unavailable Quentin Chamberlain Attending Clinician Unavailable Ilana Attending Clinician Unavailable DARRIUS CRISTOBAL Attending Clinician Unavailable Antonella Rodriguez Attending Clinician ROGELIO MARTÍNEZ Attending Clinician Unavailable PETER GARCIA Attending Clinician Unavailable MD GUTIERREZ LEAL Attending Clinician Unavailable Mic Aiken Attending Clinician Unavailable Chris Carter Attending Clinician Unavailable MICHELLE OBRIEN Attending Clinician Unavailable SCOTT FLOWER Attending Clinician Unavailable MD ROGELIO MARTÍNEZ Attending Clinician Unavailable KRISTIAN KIRKLAND Attending Clinician Unavailable NILESH ARTEAGA Attending Clinician Unavailable COURTNEY WHEAT Attending Clinician Unavailable MD COURTNEY WHEAT Attending Clinician Unavailable MD MARY HEATON OBIOMA Attending Clinician Unavailable SOLIPURAM, MD MICHELLE GÓMEZ R Attending Clinician Unavailable Scott Flower Attending Clinician SCOTT FLOWER Attending Clinician Unavailable Tyrell Fitzgerald Attending Clinician Valarie Teran Attending Clinician FABIOLA RASHID Attending Clinician Unavailable DR EDUIN BARRAGAN Attending Clinician Unavailable Carlito Parmar Attending Clinician [phone] Reinaldo Smith Attending Clinician Jose Francisco Johnson Attending Clinician Marsha Lazo Attending Clinician Yusef Neil Attending Clinician Antonella Rodriguez Admitting Clinician Unavailable MADDISON WHARTON Admitting Clinician Unavailable Ranjit Eagle Admitting Clinician Unavailable GuerrreoB Admitting Clinician Unavailable LAURA CARBAJAL Admitting Clinician Unavailable JENA MERA Admitting Clinician Unavailable MD GUTIERREZ LEAL Admitting Clinician Unavailable MICHELLE OBRIEN Admitting Clinician Unavailable MD ROGELIO MARTÍNEZ Admitting Clinician Unavailable COURTNEY WHEAT Admitting Clinician Unavailable MD COURTNEY WHEAT Admitting Clinician Unavailable MARY HEATON Admitting Clinician Unavailable MD PATRICIO REID Admitting Clinician Unavailable MD MICHELLE OBRIEN Admitting Clinician Unavailable DR EDUIN BARRAGAN Admitting Clinician Unavailable Payers Payer Name Policy Type Policy Number Effective Date Expiration Date S ource MEDICARE B-[place]: [id number] 2021 RatingBug 00:00:00 Problems Condition Condition Condition Status Onset Resolution Last Treating Co mments Source Name Details Category Date Date Treatment Clinician Date NATALYA NATALYA Diagnosis Active 2021-02-24 Mem oria Active 02-14 12:03:00 l 02/14/2021 00:00: Vicente Mares COLON COLON Diagnosis Active 2016-11-17 Mem oria CANCER CANCER 11-14 05:49:00 l SCREENING- SCREENING- 00:00: Jeevan tate Z12.11 Z12.11 00 Active 11/14/2016 [facility] R92.1 - R92.1 - Diagnosis Active 2016-04-[facility] MAMMOGRAPH MAMMOGRAPH -12 15:55:00 l IC IC 00:01: Denis CALCIFCN CALCIFCN 00 FOUND ON FOUND ON Active 02/01/2016 ADRIAN CRUZ [facility] Z12.31 - Z12.31 - Diagnosis Active 2015-11-30 Memoria ENCNTR ENCNTR - 07:08:00 l SCREEN SCREEN 00:01: Denis MAMMOGRAM MAMMOGRAM 00 FOR MA FOR MA Active 11/12/2015 [facility] RT WRIST RT WRIST Diagnosis Active 2016-12-28 Memoria DISTAL DISTAL 1- 02:03:00 l RADIUS RADIUS 09:00: Denis CLSD FX CLSD FX 00 Active 10/22/2015 [facility] Abnormal Abnormal Problem Active 2022-04-22 Memoria glucose glucose 7-02 03:11:55 l level level 00:00: Denis (finding) (finding) 00 Active 04/22/2015 Problem 04/22/2022 Data migrated from [employer] on 04/28/15. [facility], ANTHONY Soto, [facility], [facility], [facility] Lymphedema Problem Active 2019-11-17 M emoria (disorder) Lymphedema 2-04 00:38:51 l (disorder) 00:00: Vicente n Active 00 11/25/2013 Problem 11/17/2019 Data migrated from [employer] on 03/20/15. [facility], ANTHONY Soto, [facility], [facility], [facility] Obstructiv Obstructi Problem Active 2022-04-22 Memoria e sleep ve sleep 2-04 03:11:55 l apnea apnea 00:00: R[place] syndrome syndrome 00 (disorder) (disorder) Active 11/25/2013 Problem 04/22/2022 Data migrated from [employer] on 03/20/15. [facility], OPIEverette Soto, [facility], [facility], [facility] Hypothyroi Hypothyro Problem Active 2019-08-09 Memoria dism idism 4-24 21:25:36 l (disorder) (disorder) 00:00: He rmann Active 00 02/12/2013 Problem 08/09/2019 Data migrated from [employer] on 03/20/15. [facility], OPID Brittany, [facility], [facility], [facility] Depressive Depressiv Problem Active 2022-04-22 Memoria disorder e disorder 4-24 03:11:55 l (disorder) (disorder) 00:00: He rmann Active 00 02/12/2013 Problem 04/22/2022 Data migrated from [facility] on 03/20/15. [facility], OPID Brittany, [facility], [facility], [facility] Obesity Obesity Problem Active 2016-05-15 Me moria (disorder) (disorder) 8-20 00:23:22 l Active 00:00: Ralls 06/10/2012 00 Problem 05/15/2016 Data migrated from [employer] on 03/20/15. 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 [facility], OPID Brittany, [facility], [facility], [facility] Hypertensi Hypertens Problem Active 2016-05-15 Memoria ve episode satnam 7-10 00:23:22 l (disorder) episode 00:00: Karen nn (disorder) 00 Active 04/30/2012 Problem 05/15/2016 Data migrated from [email or web address] on 03/20/15. OP[facility] Brittany, [facility] [place], [facility] [place] Pain in Pain in Problem 2016-01-01 M emoria wrist wrist 05:02:18 l (finding) (finding) Herm connie Problem 01/01/2016 [facility] Calcificat Calcifica Problem Resolve 2022-04-22 Memoria ion of tion of d 03:11:55 l breast breast Denis (finding) (finding) Resolved Problem 04/22/2022 Left [facility], OPID Brittany, [facility] [place], [facility] [place] Dysuria Dysuria Problem Resolve 2022-04-22 Memoria (finding) (finding) d 03:11:55 l Resolved Denis Problem 04/22/2022 [facility], [facility], [facility] Acute Acute Problem Active 2020-02-08 Memor ia urinary urinary 22:36:35 l tract tract Denis infection infection (disorder) (disorder) Active Problem 02/08/2020 Medical Group Chronic Chronic Problem Active 2020-02-08 Me moria renal renal 22:36:35 l impairment impairment He rmann (disorder) (disorder) Active Problem 02/08/2020 [facility], OPIEverette Soto, [facility] [place],[facility] [place] [facility] Diabetes Diabetes Problem Active 2020-06-24 Memoria mellitus mellitus 23:27:54 l (disorder) (disorder) He rmann Active Problem 06/24/2020 [facility], [facility] Urinalysis Urinalysi Problem Active 2022-04-22 Memoria = abnormal s = 03:11:55 l (finding) abnormal Karen nn (finding) Active Problem 04/22/2022 [facility], [facility], [facility] Atrial Atrial Problem Active 2022-04-22 Turner arnoldo fibrillati fibrillati 03:11:55 l on on Ralls (disorder) (disorder) Active Problem 04/22/2022 [facility], [facility], [facility] Benign Benign Problem Active 2022-04-22 Turner arnoldo essential essential 03:11:55 l hypertensi hypertensi He rmann on on (disorder) (disorder) Active Problem 04/22/2022 [facility], OPID Brittany, [facility], [facility], [facility] Cardiorena Problem Active 2022-04-22 M emoria l syndrome Cardiorena 03:11:55 l (disorder) l syndrome He rmann (disorder) Active Problem 04/22/2022 [facility], [facility], [facility] Chronic Chronic Problem Active 2022-04-22 M emoria kidney kidney 03:11:55 l disease disease [place] (disorder) (disorder) Active Problem 04/22/2022 [facility], [facility], [facility] Chronic Chronic Problem Active 2022-04-22 M emoria kidney kidney 03:11:55 l disease disease Denis stage 3 stage 3 (disorder) (disorder) Active Problem 04/22/2022 [facility], [facility], [facility] Chronic Chronic Problem Active 2022-04-22 Me moria pain pain 03:11:55 l (finding) (finding) Herm connie Active Problem 04/22/2022 [facility], [facility], [facility] Dependence Dependenc Problem Active 2022-04-22 Memoria on e on 03:11:55 l supplement supplement He lea al oxygen al oxygen (finding) (finding) Active Problem 04/22/2022 [facility], [facility] Edema of Edema of Problem Active 2022-04-22 Memoria lower lower 03:11:55 l extremity extremity Herm ocnnie (finding) (finding) Active Problem 04/22/2022 [facility], [facility], [facility] Hyperlipid Hyperlipi Problem Active 2022-04-22 Memoria emia demia 03:11:55 l (disorder) (disorder) He rmann Active Problem 04/22/2022 Data migrated from [facility] on 03/20/15. [facility], OPID Brittany, [facility], [facility] [place], [facility] Hyperparat Hyperpara Problem Active 2022-04-22 Memoria hyroidism thyroidism 03:11:55 l (disorder) (disorder) He rmann Active Problem 04/22/2022 [facility], [facility], [facility] Hypertensi Hypertens Problem Active 2022-04-22 Memoria ve satnam 03:11:55 l disorder, disorder, Herm connie systemic systemic arterial arterial (disorder) (disorder) Active Problem 04/22/2022 [facility], [facility], [facility] Hypertensi Hypertens Problem Active 2022-04-22 Memoria ve renal satnam renal 03:11:55 l disease disease Denis (disorder) (disorder) Active Problem 04/22/2022 [facility], [facility], [facility] Hyperurice Hyperuric Problem Active 2022-04-22 Memoria bryant emia 03:11:55 l (disorder) (disorder) He rmann Active Problem 04/22/2022 Data migrated from [facility] on 03/20/15. [facility], OPID Brittany, [facility], [facility] [place] [facility] Lymphedema Lymphedem Problem Active 2022-04-22 Memoria of lower a of lower 03:11:55 l extremity extremity Herm connie (disorder) (disorder) Active Problem 04/22/2022 [facility], [facility], [facility] Malignant Malignant Problem Active 2022-04-22 Memoria neoplasm neoplasm 03:11:55 l of skin of of skin of He rmann upper limb upper limb (disorder) (disorder) Active Problem 04/22/2022 [facility], [facility], [facility] Morbid Morbid Problem Active 2022-04-22 Turner arnoldo obesity obesity 03:11:55 l (disorder) (disorder) He rmann Active Problem 04/22/2022 [facility], OPID Brittany, [facility], [facility] Post-disch Post-disc Problem Active 2022-04-22 Memoria arge harge 03:11:55 l follow-up follow-up Karoline rosales (finding) (finding) Active Problem 04/22/2022 [facility], [facility] Prerenal Prerenal Problem Active 2022-04-22 Memoria azotemia azotemia 03:11:55 l (disorder) (disorder) He rmann Active Problem 04/22/2022 [facility], [facility], [facility] Proteinuri Proteinur Problem Active 2022-04-22 Memoria a ia 03:11:55 l (finding) (finding) aKroline rosales Active Problem 04/22/2022 [facility], [facility], [facility] Stasis Stasis Problem Active 2022-04-22 Turner arnoldo ulcer ulcer 03:11:55 l (disorder) (disorder) He rmann Active Problem 04/22/2022 [facility], [facility], [facility] Swelling - Swelling Problem Active 2022-04-22 Memoria edema - - edema - 03:11:55 l symptom symptom Denis (finding) (finding) Active Problem 04/22/2022 [facility], [facility], [facility] Swollen Swollen Problem Active 2022-04-22 Me moria ankle ankle 03:11:55 l (finding) (finding) Herm connie Active Problem 04/22/2022 [facility], [facility], [facility] Urinary Urinary Problem Resolve 2022-04-22 M emoria tract tract d 03:11:55 l infectious infectious He rmann disease disease (disorder) (disorder) Resolved Problem 04/22/2022 [facility], [facility], [facility] Venous Venous Problem Active 2022-04-22 Turner arnoldo ulcer of ulcer of 03:11:55 l leg leg Denis (disorder) (disorder) Active Problem 04/22/2022 [facility], [facility], [facility] Weight Weight Problem Active 2022-04-22 Turner arnoldo gain gain 03:11:55 l finding finding Denis (finding) (finding) Active Problem 04/22/2022 [facility], [facility], [facility] Acute Acute Problem Active 2016-05-15 Memor ia renal renal 00:23:22 l failure failure Denis syndrome syndrome (disorder) (disorder) Active Problem 05/15/2016 Data migrated from [employer] on 03/20/15. ANTHONY Soto, OPID [place],[facility] Kidney Kidney Problem Active 2016-11-20 Turner arnoldo disease disease 03:07:28 l (disorder) (disorder) He rmann Active Problem 11/20/2016 [facility] Migraine Migraine Problem Active 2016-11-20 Memoria (disorder) (disorder) 03:07:28 l Active Denis Problem 11/20/2016 [facility], [facility] RIGHT RIGHT Diagnosis Active 2016-03-09 Mem oria WRIST WRIST 15:06:00 l DISTAL DISTAL Denis RADIUS RADIUS CLSD FX CLSD FX Active [facility] DISTAL DISTAL Diagnosis Active 2016-04-21 M emoria RADIUS RADIUS 09:46:00 l CLSD FX CLSD FX [place] Active [facility] Gir[facility] Leblanc Long-term Long-term Problem Active 2022-04-22 Memoria current current 03:11:55 l use of use of Denis drug drug therapy therapy (situation (situation ) ) Active Problem 04/22/2022 [facility] Group Cholestero Cholester Problem 2016-01-01 Memoria l ol 05:02:18 l (substance (substance He rmann ) ) Problem 01/01/2016 [facility] Sleep Sleep Problem 2016-01-01 Memor ia apnea apnea 05:02:18 l (finding) (finding) Herm connie Problem 01/01/2016 <sup>2</howell p>does not use cpap [facility] Acute Acute Problem Resolve 2016-05-15 2016-05-15 Memoria otitis otitis d 02-12 00:23:22 00:23:22 l media media 00:00: Denis (disorder) (disorder) 00 Resolved 02/12/2013 Problem 05/15/2016 [facility] on 05/08/15. ANTHONY Soto, OPID [place],[facility] History of Past Illness Condition Condition Condition Status Onset Resolution Last Treating Co mments Source Name Details Category Date Date Treatment Clinician Date 2018-nCoV 2019-nCoV Problem 2022-04-22 2022-04-22 Memoria acute acute 04-19 03:11:55 03:11:55 l respirator respirator 21:13: He rmann y disease y disease 00 04/19/2022 04/22/2022 [facility] Group Bronchitis Bronchiti Problem 2022-04-22 2022-04-22 Memoria , not s, not 04-19 03:11:55 03:11:55 l specified specified 21:13: Herm connie as acute as acute 00 or chronic or chronic 04/19/2022 04/22/2022 [facility] Other Other Problem 2020-102021-10-20 2021-10-20 M emoria abnormal abnormal 12-18 01:18:13 01:18:13 l glucose glucose 21:47: Denis 10/17/2021 00 10/20/2021 [facility] Other long Other 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 2020-102021-10-20 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 12-18 01:18:13 01:18:13 l (current) (current) 21:46: Karoline rosales drug drug 00 therapy therapy 10/17/2021 10/20/2021 [facility] Other Other Problem 2020-102021-10-20 2021-10-20 M emoria hyperlipid hyperlipid 12-18 01:18:13 01:18:13 l emia emia 21:45: Denis 10/17/2021 00 10/20/2021 [facility] Essential Essential Problem 2020-102021-10-20 2021-10-20 Memoria (primary) (primary) 12-18 01:18:13 01:18:13 l hypertensi hypertensi 21:44: Jeevan tate on on 10/17/2021 10/20/2021 Medical Group Muscle Muscle Problem 2020-102021-10-20 2021-10-20 Memoria spasm of spasm of 12-18 01:18:13 01:18:13 l back back 21:39: Denis 10/17/2021 00 10/20/2021 [facility] Low back Low back Problem 2020-102021-10-20 2021-10-20 Memoria pain, pain, 12-18 01:18:13 01:18:13 l unspecifie unspecifie 21:38: Jeevan tate d d 00 10/17/2021 10/20/2021 [facility] Dependence Dependenc Problem 2020-102021-09-12 2021-09-12 Memoria on e on 11-09 01:29:16 01:29:16 l supplement supplement 21:17: Jeevan tate al oxygen al oxygen 00 09/09/2021 09/12/2021 [facility] Unsteadine Unsteadin Problem 2020-102021-09-12 2021-09-12 Memoria ss on feet ess on 11-09 01:29:16 01:29:16 l feet 21:13: Denis 09/09/2021 00 09/12/2021 [facility] Weakness Weakness Problem 2020-102021-09-12 2021-09-12 Memoria 09/09/202111-09 01:29:16 01:29:16 l 09/12/2021 21:13: Vicente davis [facility] 00 Group Allergies, Adverse Reactions, Alerts Allergy Allergy Status Severity Reaction(s) Onset Inactive Treating Comm ents Source Name Type Date Date Clinician codeine DA Active [facility] 5-13 Clear 00:00: Rodriguez [facility] sulfamet DA Active [facility] hoxazole - Clear 00:00: Rodriguez [facility] trimetho DA Active [facility] prim - Clear 00:00: Rodriguez [facility] Penicill DA Active [facility] ins 02-24 Clear 00:00: Rodriguez [facility] cefepime DA Active [facility] 5-06 Clear 00:00: Rodriguez [facility] levoflox DA Active [facility] acin 5-06 Clear 00:00: Rodriguez [facility] penicill penicill Active Memori a ins<sup> ins<sup> l 1</sup> 1</sup> Denis codeine< codeine< Active Memori a sup>2</s sup>2</s l up> up> Denis cefepime cefepime Active Memori a l Denis Levaquin Levaquin Active Memori a l [place] penicill penicill Active Memori a ins<sup> ins<sup> l 2</sup> 2</sup> Denis codeine codeine Active Memoria l Denis Bactrim Bactrim Active Memoria l Denis penicill penicill Active Memori a ins ins l Denis Social History Social Habit Start Date Stop Date Quantity Comments Source Social History 2020-09-15 2020-09-15 Aylin retana 15:59:50 15:59:50 Smoking Status Start Date Stop Date Source Social History [facility] Medications Ordered Filled Start Stop Current Ordering Indication Dosage Frequency Signature Comments Components Source Medication Medication Date Date Medication? Clinician (SIG) Name Name Zithromax 2022-0 Yes See Jourdan Z-Gómez 250 6-29 Instructio l mg oral 21:14: ns, Take 2 Herm connie tablet 00 tablets by mouth the first day then 1 tablet by mouth days 2-5. (Pt is on hemodialys is)., X 5 day, # 6 tab, 0 Refill(s), Pharmacy: [facility], 170.18, cm, 04/19/22 14:52:00 CDT, Height, 106.818, kg, 04/19/22 14... [facility] In[facility] mg oral 21:14: ns, Take 2 Herm connie tablet 00 tablets by mouth the first day then 1 tablet by mouth days 2-5. (Pt is on hemodialys is)., X 5 day, # 6 tab, 0 Refill(s), Pharmacy: [facility], 170.18, cm, 04/19/22 14:52:00 CDT, Height, 106.818, kg, 04/19/22 14... Velphoro 2-0 Yes 500 mg, Memori a 6-29 CHEW, l 20:13: Daily, Ralls 00 take with food, 0 Refill(s) Velphoro 2-0 Yes 500 mg, Memori a 6-29 CHEW, l 20:13: Daily, Ralls 00 take with food, 0 Refill(s) sevelamer 2-0 Yes 2,400 mg = Me moria carbonate 6-29 3 tab, PO, l 800 mg oral 20:12: TID-Meals, Denis tablet 00 # 270 tab, 0 Refill(s) sevelamer 2-0 Yes 2,400 mg = Me moria carbonate 6-29 3 tab, PO, l 800 mg oral 20:12: TID-Meals, Denis tablet 00 # 270 tab, 0 Refill(s) pantoprazol 2-0 Yes 40 mg = 1 M emoria e 40 mg 6-29 tab, PO, l oral 20:11: Daily, 0 Denis enteric 00 Refill(s) coated tablet pantoprazol 2-0 Yes 40 mg = 1 M emoria e 40 mg 6-29 tab, PO, l oral 20:11: Daily, 0 Ralls enteric 00 Refill(s) coated tablet oxyCODONE 5 0 Yes 5 mg = 1 Me moria mg oral 6-29 tab, PO, l tablet, 20:10: Q4H, PRN Vicente n immediate 00 Pain, prn, release 0 Refill(s) oxyCODONE 5 0 Yes 5 mg = 1 Me moria mg oral 6-29 tab, PO, l tablet, 20:10: Q4H, PRN Vicente n immediate 00 Pain, prn, release 0 Refill(s) ondansetron 0 Yes 4 mg = 1 Me moria 4 mg oral 6-29 tab, PO, l tablet, 20:09: TID, PRN Vicente n disintegrat 00 Nausea / ing Vomiting, Dissolve tab under tongue, 0 Refill(s) ondansetron 2021-0 Yes 4 mg = 1 Me moria 4 mg oral 6-29 tab, PO, l tablet, 20:09: TID, PRN Vicente n disintegrat 00 Nausea / ing Vomiting, Dissolve tab under tongue, 0 Refill(s) Nitazoxanid 2021-0 Yes 500 mg = 1 Memoria e 500 mg 6-29 tab, PO, l oral tablet 20:08: Q12H, 0 Her hunt 00 Refill(s) Nitazoxanid 2021-0 Yes 500 mg = 1 Memoria e 500 mg 6-29 tab, PO, l oral tablet 20:08: Q12H, 0 Her hunt 00 Refill(s) metoprolol 2021-0 Yes 25 mg = 1 Me moria tartrate 25 6-29 tab, PO, l mg oral 20:07: BID, 0 Ralls tablet 00 Refill(s) metoprolol 2021-0 Yes 25 mg = 1 Me moria tartrate 25 6-29 tab, PO, l mg oral 20:07: BID, 0 Denis tablet 00 Refill(s) methocarbam 2021-0 Yes 250 mg = Me moria ol 500 mg 6-29 0.5 tab, l oral tablet 20:05: PO, TID, 0 Denis 00 Refill(s) methocarbam 2-0 Yes 250 mg = Me moria ol 500 mg 6-29 0.5 tab, l oral tablet 20:05: PO, TID, 0 Denis 00 Refill(s) Alphagan P 2021-0 Yes 1 drp, Memor ia 0.1% 6-29 OPTH, Q12H l ophthalmic 20:04: Ralls solution 00 folic acid 2021-0 Yes 1 mg, PO, Me moria 6-29 Daily, 0 l 20:04: Refill(s) Alphagan P 2021-0 Yes 1 drp, Memor ia 0.1% 6-29 OPTH, Q12H l ophthalmic 20:04: Denis solution 00 folic acid 2021-0 Yes 1 mg, PO, Me moria 6-29 Daily, 0 l 20:04: Refill(s) Denis 00 Oxygen 2021-0 Yes 1 btl, Memoria 6-29 MISC, l 20:03: Daily, 2 Ralls 00 liters, 0 Refill(s) Oxygen 2021-0 Yes 1 btl, Memoria 6-29 MISC, l 20:03: Daily, 2 Denis 00 liters, 0 Refill(s) Eliquis 2.5 2021-0 Yes 2.5 mg, Mem oria mg oral 6-29 PO, Q12H, l tablet 20:02: tab, 0 Ralls 00 Refill(s) Eliquis 2.5 2021-0 Yes 2.5 mg, Mem oria mg oral 6-29 PO, Q12H, l tablet 20:02: tab, 0 Denis 00 Refill(s) tizanidine 2021-0 Yes 4 mg = 1 Mem oria 4 mg oral 5-16 tab, PO, l tablet 18:09: Bedtime, Denis 00 PRN NEEDED FOR MUSCLE SPASM, # 15 tab, 0 Refill(s), Pharmacy: [facility] #[id number], 165.1, cm, 10/17/21 15:23:00 RN VASCULAR, Height, 107.301, kg, 10/17/21 15:23:00 RN VASCULAR, Weight tizanidine 2021-0 Yes 4 mg = 1 Mem oria 4 mg oral 5-16 tab, PO, l tablet 18:09: Bedtime, Ralls 00 PRN NEEDED FOR MUSCLE SPASM, # 15 tab, 0 Refill(s), Pharmacy: [facility] #[id number], 165.1, cm, 10/17/21 15:23:00 RN VASCULAR, Height, 107.301, kg, 10/17/21 15:23:00 RN VASCULAR, Weight Ondansetron 2-0 Yes 4 mg = 1 Me moria 4 MG Oral 1-07 tab, PO, l Tablet 22:01: BID, X 5 Denis [Zofran] 00 day, # 10 tab, 0 Refill(s), Pharmacy: [facility] #[id number], 165.1, cm, 10/17/21 15:23:00 RN VASCULAR, Height, 107.301, kg, 10/17/21 15:23:00 RN VASCULAR, Weight Ondansetron 2021-0 Yes 4 mg = 1 Me moria 4 MG Oral 1-07 tab, PO, l Tablet 22:01: BID, X 5 Denis [Zofran] 00 day, # 10 tab, 0 Refill(s), Pharmacy: [facility] #[id number], 165.1, cm, 10/17/21 15:23:00 RN VASCULAR, Height, 107.301, kg, 10/17/21 15:23:00 RN VASCULAR, Weight atorvastati 2020-10 Yes 10 mg = 1 M emoria n 10 mg 2-27 tab, PO, l oral tablet 21:45: Bedtime, # Ralls 00 90 tab, 0 Refill(s), Pharmacy: [facility] #[id number], 165.1, cm, 10/17/21 15:23:00 RN VASCULAR, Height, 107.301, kg, 10/17/21 15:23:00 RN VASCULAR, Weight atorvastati 2020-10 Yes 10 mg = 1 M emoria n 10 mg 2-27 tab, PO, l oral tablet 21:45: Bedtime, # Denis 00 90 tab, 0 Refill(s), Pharmacy: [facility] #[id number], 165.1, cm, 10/17/21 15:23:00 RN VASCULAR, Height, 107.301, kg, 10/17/21 15:23:00 RN VASCULAR, Weight tizanidine 2020-10 Yes 4 mg = 1 Mem oria 4 mg oral 2-27 tab, PO, l tablet 21:40: Bedtime, Ralls 00 PRN for muscle spasm, # 30 tab, 0 Refill(s), [id number], 165.1, cm, 10/17/21 15:23:00 RN VASCULAR, Height, 107.301, kg, 10/17/21 15:23:00 RN VASCULAR, Weight Acetaminoph 2020-10 Yes 1 tab, PO, Memoria en 325 MG / 2-27 Q12H, PRN l tramadol 21:40: for pain, Herm connie hydrochlori 00 X 15 day, de 37.5 MG # 30 tab, Oral Tablet 0 [Ultracet] Refill(s), [id number], 165.1, cm, 10/17/21 15:23:00 RN VASCULAR, Height, 107.301, kg, 10/17/21 15:23:00 RN VASCULAR, Weight tizanidine 2020-10 Yes 4 mg = 1 Mem oria 4 mg oral 2-27 tab, PO, l tablet 21:40: Bedtime, Denis PRN for muscle spasm, # 30 tab, 0 Refill(s), [id number], 165.1, cm, 10/17/21 15:23:00 RN VASCULAR, Height, 107.301, kg, 10/17/21 15:23:00 RN VASCULAR, Weight Acetaminoph 2020-10 Yes 1 tab, PO, Memoria en 325 MG / 2-27 Q12H, PRN l tramadol 21:40: for pain, Herm connie hydrochlori 00 X 15 day, de 37.5 MG # 30 tab, Oral Tablet 0 [Ultracet] Refill(s), [facility][id number], 165.1, cm, 10/17/21 15:23:00 RN VASCULAR, Height, 107.301, kg, 10/17/21 15:23:00 RN VASCULAR, Weight sevelamer 2020-10 Yes 1,600 mg = Me moria 800 mg oral 2-27 2 tab, PO, l tablet 21:21: TID-Meals, Karen nn 00 # 180 tab, 0 Refill(s) sevelamer 2020-10 Yes 1,600 mg = Me moria 800 mg oral 2-27 2 tab, PO, l tablet 21:21: TID-Meals, Karen nn 00 # 180 tab, 0 Refill(s) Mupirocin 2020-10 Yes 1 appl, Memor ia 0.02 MG/MG 1-22 TOP, TID, l Topical 23:21: X 5 day, # Herm connie Ointment 00 22 gm, 0 Refill(s), Pharmacy: [facility] #[id number], 165.1, cm, 09/09/21 14:08:00 RN VASCULAR, Height, 136.42, kg, 09/09/21 14:08:00 RN VASCULAR, Weight Mupirocin 2020-10 Yes 1 appl, Memor ia 0.02 MG/MG 1-22 TOP, TID, l Topical 23:21: X 5 day, # Herm connie Ointment 00 22 gm, 0 Refill(s), Pharmacy: [facility] #[id number], 165.1, cm, 09/09/21 14:08:00 RN VASCULAR, Height, 136.42, kg, 09/09/21 14:08:00 RN VASCULAR, Weight bumetanide 2020-10 Yes 2 mg = 1 Mem oria 2 mg oral 1-19 tab, PO, l tablet 21:11: Daily, # Ralls 00 30 tab, 0 Refill(s) bumetanide 2020-10 Yes 2 mg = 1 [...] 21:10: Bedtime, 0 Herm connie 00 Refill(s) allopurinol 2020-10 Yes 100 mg = 1 Memoria 100 mg oral 1-19 tab, PO, l tablet 21:10: BID, # 60 Vicente n 00 tab, 0 Refill(s) gabapentin 2020-10 Yes 200 mg = 2 M emoria 100 MG Oral 1-19 cap, PO, l Capsule 21:10: Bedtime, 0 Herm connie 00 Refill(s) QUEtiapine 2020-0 Yes 1 tablet, Me moria 50 mg oral 3-30 once a l tablet 13:55: day, 0 Ralls 00 Refill(s) torsemide 2020-0 Yes 1 tablet, Mem oria 20 mg oral 3-30 twice a l tablet 13:55: day, 0 Denis 00 Refill(s) QUEtiapine 2020-0 Yes 1 tablet, Me moria 50 mg oral 3-30 once a l tablet 13:55: day, 0 Denis 00 Refill(s) torsemide 2020-0 Yes 1 tablet, Mem oria 20 mg oral 3-30 twice a l tablet 13:55: day, 0 Denis 00 Refill(s) potassium 0 Yes 1 tablet, Mem oria chloride 20 3-30 once a l mEq oral 13:54: day, 0 Denis tablet, 00 Refill(s) extended release (KCL) potassium 0 Yes 1 tablet, Mem oria chloride 20 [...] day, 0 Herm connie 00 Refill(s) Digoxin 0 Yes 1 tablet, Memor ia 0.125 MG 3-30 once a l Oral Tablet 13:53: day, 0 Herm connie 00 Refill(s) DULoxetine 2020-0 Yes 1 capsule, M emoria 60 mg oral 3-30 once a l delayed 13:53: day, 0 Denis release 00 Refill(s) capsule apixaban 5 0 Yes 1 tablet, Me moria MG Oral 3-30 twice a l Tablet 13:53: day, 0 Ralls [Eliquis] 00 Refill(s) gabapentin 0 Yes 1 capsule, M emoria 300 MG Oral 3-30 twice a l Capsule 13:53: day, 0 Denis 00 Refill(s) metoprolol 0 Yes 1 tablet, Me moria tartrate 50 3-30 Twice a l mg oral 13:53: day, 0 Ralls tablet 00 Refill(s) midodrine 5 Yes 1 tablet, M emoria mg oral 3-30 twice a l tablet 13:53: day, 0 Denis 00 Refill(s) allopurinol Yes 1/2 Memori a 300 mg oral 3-30 tablet, l tablet 13:53: once a Ralls 00 day, 0 Refill(s) carvedilol Yes 1 tablet, Me moria 3.125 mg 3-30 twice a l oral tablet 13:53: day, 0 Herm connie 00 Refill(s) Digoxin Yes 1 tablet, Memor ia 0.125 MG 3-30 once a l Oral Tablet 13:53: day, 0 Herm connie 00 Refill(s) DULoxetine Yes 1 capsule, M emoria 60 mg oral 3-30 once a l delayed 13:53: day, 0 Ralls release 00 Refill(s) capsule apixaban 5 Yes 1 tablet, Me moria MG Oral 3-30 twice a l Tablet 13:53: day, 0 Ralls [Eliquis] 00 Refill(s) gabapentin Yes 1 capsule, M emoria 300 MG Oral 3-30 twice a l Capsule 13:53: day, 0 Denis 00 Refill(s) metoprolol Yes 1 tablet, Me moria tartrate 50 3-30 Twice a l mg oral 13:53: day, 0 Denis tablet 00 Refill(s) midodrine 5 Yes 1 tablet, M emoria mg oral 3-30 twice a l tablet 13:53: day, 0 Ralls 00 Refill(s) DULoxetine 2019-10 Yes 60 mg = 1 Me moria 60 mg oral 1-25 cap, PO, l delayed 17:17: Daily, # Vicente n release 00 30 cap, 0 capsule Refill(s) Spironolact 2019-10 Yes 25 mg = 1 M emoria one 25 MG 1-25 tab, PO, l Oral Tablet 17:17: Daily, 0 He rmann [Aldactone] 00 Refill(s) DULoxetine 2020-1 Yes 60 mg = 1 Me moria [...] 30 tab, H ermann 00 0 Refill(s) Digoxin 2019-10 Yes 0.125 mg, Memor ia 0.125 MG 1-25 PO, Daily, l Oral Tablet 17:13: # 30 tab, H ermann 00 0 Refill(s) Mupirocin 2019-10 Yes See Memoria 0.02 MG/MG 0-13 Instructio l Topical 15:44: ns, APPLY Karen nn Ointment 00 EXTERNALLY TO THE AFFECTED AREA TWICE DAILY, # 66 gm, 1 Refill(s), Pharmacy: [facility] #[id number], 170.18, cm, 12/16/19 14:42:00 RN VASCULAR, Height, 164.318, kg, 12/16/19 14:42:00 RN VASCULAR, Weight Mupirocin 2019-10 Yes See Memoria 0.02 MG/MG 0-13 Instructio l Topical 15:44: ns, APPLY Karen nn Ointment 00 EXTERNALLY TO THE AFFECTED AREA TWICE DAILY, # 66 gm, 1 Refill(s), Pharmacy: [facility] #[id number], 170.18, cm, 12/16/19 14:42:00 RN VASCULAR, Height, 164.318, kg, 12/16/19 14:42:00 RN VASCULAR, Weight Nitrofurant Yes 100 mg = 1 Memoria oin 100 MG 8-09 cap, PO, l Oral 17:57: BID, X 10 Denis Capsule 00 day, # 20 [Macrobid] cap, 0 Refill(s), Pharmacy: [facility] #[id number], 170.18, cm, 12/16/19 14:42:00 RN VASCULAR, Height, 164.318, kg, 12/16/19 14:42:00 RN VASCULAR, Weight Nitrofurant 2020-0 Yes 100 mg = 1 Memoria oin 100 MG 8-09 cap, PO, l Oral 17:57: BID, X 10 Ralls Capsule 00 day, # 20 [Macrobid] cap, 0 Refill(s), Pharmacy: [facility] #[id number], 170.18, cm, 12/16/19 14:42:00 RN VASCULAR, Height, 164.318, kg, 12/16/19 14:42:00 RN VASCULAR, Weight lisinopril 2020-0 Yes 2.5 mg = 1 M emoria 2.5 mg oral 6-04 tab, PO, l tablet 23:26: Daily, # Denis 00 30 tab, 2 Refill(s), called to pharmacy lisinopril 2020-0 Yes 2.5 mg = 1 M emoria 2.5 mg oral 6-04 tab, PO, l tablet 23:26: Daily, # Denis 00 30 tab, 2 Refill(s), called to pharmacy calcitriol 2020-0 Yes = 1 cap, Mem oria 0.25 mcg 5-20 PO, Daily, l oral 12:18: # 90 cap, Ralls capsule 00 1 Refill(s), [facility]acy: [facility] [id number] calcitriol 2020-0 Yes = 1 cap, Mem oria 0.25 mcg 5-20 PO, Daily, l oral 12:18: # 90 cap, Denis capsule 00 1 Refill(s), Pharmacy: [facility] [id number] calcitriol 2020-0 Yes = 1 cap, Mem oria 0.25 mcg 4-16 PO, Daily, l oral 16:37: # 90 Denis capsule 47 unknown unit, Pharmacy: [facility] #[id number] calcitriol 2020-0 Yes = 1 cap, Mem oria 0.25 mcg 4-16 PO, Daily, l oral 16:37: # 90 Ralls capsule 47 unknown unit, Pharmacy: [facility] [id number] Furosemide 2020-0 Yes = 1 tab, Mem oria 40 MG Oral 4-13 PO, Every l Tablet 20:06: Other Day, Karen nn 19 # 45 tab, Pharmacy: [facility] #[id number] Furosemide 2020-0 Yes = 1 tab, Mem oria 40 MG Oral 4-13 PO, Every l Tablet 20:06: Other Day, Karen robb 19 # 45 tab, Pharmacy: [facility] #[id number] prednisolon 2020-0 Yes 1 drop in M emoria e acetate 4-10 each eye, l 10 MG/ML 20:53: once Ralls Ophthalmic 00 daily, 0 Suspension Refill(s) bromfenac 2020-0 Yes 1 drop in Mem oria 0.7 MG/ML 4-10 right eye, l Ophthalmic 20:53: once Denis Solution 00 daily, 0 [Prolensa] Refill(s) prednisolon 2020-0 Yes 1 drop in M emoria e acetate 4-10 each eye, l 10 MG/ML 20:53: once Denis Ophthalmic 00 daily, 0 Suspension Refill(s) bromfenac 2020-0 Yes 1 drop in Mem oria 0.7 MG/ML 4-10 right eye, l Ophthalmic 20:53: once Ralls Solution 00 daily, 0 [Prolensa] Refill(s) Furosemide 2020-0 Yes = 1 tab, Mem oria 40 MG Oral 1-23 PO, Every l Tablet 15:13: Other Day, Karen robb 34 # 45 tab, Pharmacy: [facility] [id number] Furosemide 2020-0 Yes = 1 tab, Mem oria 40 MG Oral 1-23 PO, Every l Tablet 15:13: Other Day, Karen robb 34 # 45 tab, Pharmacy: [facility] [id number] Mupirocin 2018-10 Yes See Memoria 0.02 MG/MG 2-27 Instructio l Topical 19:11: ns, # 66 Vicente n Ointment 15 gm, APPLY EXTERNALLY TO THE AFFECTED AREA TWICE DAILY, Pharmacy: [facility] #[id number] Mupirocin 2018-10 Yes See Memoria 0.02 MG/MG 2-27 Instructio l Topical 19:11: ns, # 66 Vicente n Ointment 15 gm, APPLY EXTERNALLY TO THE AFFECTED AREA TWICE DAILY, Pharmacy: [facility] #[id number] Nitrofurant 2018-10 Yes 100 mg = 1 Memoria oin 100 MG 2-13 cap, PO, l Oral 01:44: BID, X 5 Ralls Capsule 00 day, # 10 [Macrodanti cap, 0 n] Refill(s), Pharmacy: [facility] #[id number] Nitrofurant 2018-10 Yes 100 mg = 1 Memoria oin 100 MG 2-13 cap, PO, l Oral 01:44: BID, X 5 Denis Capsule 00 day, # 10 [Macrodanti cap, 0 n] Refill(s), Pharmacy: [facility] [id number] apixaban 2018-10 Yes 5 mg, PO, Me moria [...] ermann Bitartrate 00 5 MG Oral Tablet [Greenup 5/325] apixaban 2018-10 Yes 5 mg, PO, Me moria [...] ermann Bitartrate 00 5 MG Oral Tablet [Greenup 5/325] calcitriol 2018-10 Yes = 1 cap, Mem oria 0.25 mcg 0-11 PO, Daily, l oral 21:10: # 90 Ralls capsule 30 unknown unit, Pharmacy: [facility] #[id number] calcitriol 2018-10 Yes = 1 cap, Mem oria 0.25 mcg 0-11 PO, Daily, l oral 21:10: # 90 Denis capsule 30 unknown unit, Pharmacy: [facility] #[id number] gabapentin Yes 300 mg = 1 M emoria 300 MG Oral 9-27 cap, PO, l Capsule 20:54: BID, # 180 Herm connie 00 cap, 3 Refill(s), called to pharmacy gabapentin Yes 300 mg = 1 M emoria 300 MG Oral 9-27 cap, PO, l Capsule 20:54: BID, # 180 Herm connie 00 cap, 3 Refill(s), called to pharmacy allopurinol Yes = 1 tab, Me moria 300 mg oral 8-17 PO, Daily, l tablet 02:39: # 90 tabVicente n 31 Pharmacy: [facility] [id number] allopurinol 2018- Yes = 1 tab, Me moria 300 mg oral 8-17 PO, Daily, l tablet 02:39: # 90 Vicente martinez n 31 Pharmacy: [facility] #[id number] QUEtiapine 2018- Yes 50 mg = 1 Me moria 50 mg oral 6-06 tab, PO, l tablet 15:28: Bedtime, # Karen nn 00 30 tab, 1 Refill(s) QUEtiapine 2018- Yes 50 mg = 1 Me moria 50 mg oral 6-06 tab, PO, l tablet 15:28: Bedtime, # Karen nn 00 30 tab, 1 Refill(s) eletriptan 2018- Yes 40 mg = 1 Me moria 40 mg oral 6-06 tab, PO, l tablet 15:26: Daily, PRN Karen nn 00 for migraine headache, may repeat dose once in 2 hours, # 6 tab, 0 Refill(s) eletriptan 2019 Yes 40 mg = 1 Me moria [...] BEDTIME, # 90 tab, 1 Refill(s), Pharmacy: [facility] [place] [address] atorvastati Yes See Memori a n 40 mg 3-14 Instructio l oral tablet 15:07: ns, TAKE 1 Ralls 35 TABLET BY MOUTH EVERY NIGHT AT BEDTIME, # 90 tab, 1 Refill(s), Pharmacy: [facility] [place] [address] amLODIPine Yes See Memoria 5 mg oral 3-14 Instructio l tablet 15:07: ns, TAKE 1 Karen nn 33 TABLET BY MOUTH EVERY DAY, # 90 tab, 1 Refill(s), Pharmacy: [facility] amLODIPine Yes See Memoria 5 mg oral 3-14 Instructio l tablet 15:07: ns, TAKE 1 Karen nn 33 TABLET BY MOUTH EVERY DAY, # 90 tab, 1 Refill(s), Pharmacy: [facility] [place] [address] lisinopril Yes See Memoria 5 mg oral 8-21 Instructio l tablet 19:00: ns, TAKE 1 Karen nn 30 TABLET BY MOUTH DAILY, # 90 tab, 1 Refill(s), Pharmacy: [facility] lisinopril Yes See Memoria 5 mg oral 8-21 Instructio l tablet 19:00: ns, TAKE 1 Karen nn 30 TABLET BY MOUTH DAILY, # 90 tab, 1 Refill(s), Pharmacy: [facility] atorvastati Yes See Memori a n 40 mg 8-21 Instructio l oral tablet 18:50: ns, TAKE 1 Denis 45 TABLET BY MOUTH EVERY NIGHT AT BEDTIME, # 30 tab, 5 Refill(s), Pharmacy: [facility] [place] [address] atorvastati Yes See Memori a n 40 mg 8-21 Instructio l oral tablet 18:50: ns, TAKE 1 Ralls 45 TABLET BY MOUTH EVERY NIGHT AT BEDTIME, # 30 tab, 5 Refill(s), Pharmacy: [facility] [place] [address] amLODIPine Yes See Memoria 5 mg oral 8-21 Instructio l tablet 18:50: ns, TAKE 1 Karen nn 41 TABLET BY MOUTH EVERY DAY, # 30 tab, 5 Refill(s), Pharmacy: [facility] [place] [address] amLODIPine Yes See Memoria 5 mg oral 8-21 Instructio l tablet 18:50: ns, TAKE 1 Karen nn 41 TABLET BY MOUTH EVERY DAY, # 30 tab, 5 Refill(s), Pharmacy: [facility] [place] [address] lisinopril No See Memoria 5 mg oral 7-31 Instructio l tablet 15:28: ns, # 90 Ralls 34 tab, TAKE 1 TABLET BY MOUTH DAILY, Pharmacy: [facility] [place] [address] lisinopril No See Memoria 5 mg oral 7-31 Instructio l tablet 15:28: ns, # 90 Denis 34 tab, TAKE 1 TABLET BY MOUTH DAILY, Pharmacy: [facility] [place] [address] allopurinol No 300 mg = 1 Memoria 300 mg oral 5-10 tab, PO, l tablet 13:59: Daily, # Ralls 00 90 tab, 1 Refill(s), Pharmacy: [facility] [place] [address] allopurinol No 300 mg = 1 Memoria 300 mg oral 5-10 tab, PO, l tablet 13:59: Daily, # Ralls 00 90 tab, 1 Refill(s), Pharmacy: [facility] [place] [address] lisinopril No See Memoria 5 mg oral 5-01 Instructio l tablet 12:38: ns, # 90 Denis 18 tab, TAKE 1 TABLET BY MOUTH DAILY, Pharmacy: [facility] [place] [address] ALLOPURINOL Yes See Memori a 300MG 5-01 Instructio l TABLETS 12:38: ns, # 90 Vicente n 18 tab, TAKE 1 TABLET BY MOUTH DAILY, Pharmacy: [place] [address] lisinopril No See Memoria 5 mg oral 5-01 Instructio l tablet 12:38: ns, # 90 Denis 18 tab, TAKE 1 TABLET BY MOUTH DAILY, Pharmacy: [place] [address] ALLOPURINOL Yes See Memori a 300MG 5-01 Instructio l TABLETS 12:38: ns, # 90 Vicente n 18 tab, TAKE 1 TABLET BY MOUTH DAILY, Pharmacy: [place] [address] calcitriol Yes 0.25 Memoria 0.25 mcg 3-28 microgram l oral 13:49: = 1 cap, Denis capsule 00 PO, Daily, # 90 cap, 3 Refill(s), Pharmacy: [place] [address] calcitriol Yes 0.25 Memoria 0.25 mcg 3-28 microgram l oral 13:49: = 1 cap, Denis capsule 00 PO, Daily, # 90 cap, 3 Refill(s), Pharmacy: [place] [address] Mupirocin Yes 1 appl, Memor ia 0.02 MG/MG 3-21 TOP, BID, l Topical 15:37: 30 grams Vicente n Ointment 21 3each, # 3 ea, 1 Refill(s), Pharmacy: [place] [address] Mupirocin Yes 1 appl, Memor ia 0.02 MG/MG 3-21 TOP, BID, l Topical 15:37: 30 grams Vicente n Ointment 21 3each, # 3 ea, 1 Refill(s), Pharmacy: [place] [address] atorvastati Yes See Memori a n 40 mg 3-21 Instructio l oral tablet 15:36: ns, TAKE 1 Ralls 22 TABLET BY MOUTH EVERY NIGHT AT BEDTIME, # 30 tab, 5 Refill(s), Pharmacy: [place] [address] atorvastati Yes See Memori a n 40 mg 3-21 Instructio l oral tablet 15:36: ns, TAKE 1 Denis 22 TABLET BY MOUTH EVERY NIGHT AT BEDTIME, # 30 tab, 5 Refill(s), Pharmacy: [place] [address] amLODIPine Yes See Memoria 5 mg oral 3-21 Instructio l tablet 15:36: ns, TAKE 1 Karen nn 18 TABLET BY MOUTH EVERY DAY, # 30 tab, 5 Refill(s), Pharmacy: [facility] [id number] amLODIPine Yes See Memoria 5 mg oral 3-21 Instructio l tablet 15:36: ns, TAKE 1 Karen nn 18 TABLET BY MOUTH EVERY DAY, # 30 tab, 5 Refill(s), Pharmacy: [facility] [address] aspirin 81 Yes 81 mg = 1 Me moria mg tablet, 1-24 tab, PO, l enteric 16:34: Daily, # Vicente n coated 00 90 tab, 3 Refill(s) aspirin 81 Yes 81 mg = 1 Me moria mg tablet, 1-24 tab, PO, l enteric 16:34: Daily, # Vicente n coated 00 90 tab, 3 Refill(s) Xopenex No Kyle K 0.63 mg = Mem oria 0.63 mg/3 3-11 Silvestre 3 mL, l mL 01:00: Soln, NEB, Denis inhalation 00 Once, solution first dose 12/30/15 19:00:00 RN VASCULAR, stop date 12/30/15 19:00:00 RN VASCULAR Xopenex No Kyle K 0.63 mg = Mem oria 0.63 mg/3 3-11 Silvestre 3 mL, l mL 01:00: Soln, NEB, Denis inhalation 00 Once, solution first dose 12/30/15 19:00:00 RN VASCULAR, stop date 12/30/15 19:00:00 RN VASCULAR Misc No Perico 300 mL, Memoria Medication 3-11 Wheat Soln-IV, l 00:03: IV, Once, Denis first dose 12/30/15 18:03:00 RN VASCULAR, stop date 12/30/15 18:03:00 RN VASCULAR Misc No Perico 300 mL, Memoria Medication 3-11 Wheat Soln-IV, l 00:03: IV, Once, Ralls 00 first dose 12/30/15 18:03:00 RN VASCULAR, stop date 12/30/15 18:03:00 RN VASCULAR promethazin No Kyle K 12.5 mg = Memoria e 3-11 Silvestre 0.5 mL, l 00:02: Injection, Ralls 00 IM, Once PRN for severe nausea, first dose 12/30/15 18:02:00 RN VASCULAR albuterol No Kyle K 2.5 mg = 3 Memoria 2.5 mg/3 mL 3-11 Silvestre mL, Soln, l (0.083%) 00:02: NEB, Once Herm connie inhalation 00 PRN for solution wheezing, first dose 12/30/15 18:02:00 RN VASCULAR Demerol HCl No Kyle K 12.5 mg = Memoria 3-11 Silvestre 0.25 mL, l 00:02: Injection, Ralls 00 IV Push, Once PRN for shivers, first dose 12/30/15 18:02:00 RN VASCULAR ondansetron No Kyle K 4 mg = 2 Memoria 3-11 Silvestre mL, l 00:02: Injection, Denis 00 IV Push, q15min PRN for nausea/vom iting, order duration: 2 doses, first dose 12/30/15 18:02:00 RN VASCULAR, stop date Limited # of times Dilaudid No Kyle K 0.5 mg = Mem oria 3-11 Silvestre 0.25 mL, l 00:02: Injection, Ralls 00 IV Push, q10min PRN for pain severe (7-10), first dose 12/30/15 18:02:00 RN VASCULAR diphenhydrA No Kyle K 25 mg = M emoria MINE 3-11 Silvestre 0.5 mL, l 00:02: Injection, Ralls 00 IV Push, Once PRN for itching, first dose 12/30/15 18:02:00 RN VASCULAR LR 1,000 mL No Kyle K 1,000 mL, Memoria 3-11 Silvestre IV, 75 l 00:02: mL/hr, Denis 00 start date 12/30/15 18:02:00 RN VASCULAR Saline Lock No Kyle K 10 mL, Me moria Flush 3-11 Silvestre Soln, IV l 00:02: Push, As Ralls 00 Indicated PRN for flush, first dose 12/30/15 18:02:00 RN VASCULAR Bupivacaine No Kyle K 300 mL, M emoria 0.25% 300 3-11 Silvestre Nerve l mL pump 300 00:02: Block, 5 He rmann mL 00 mL/hr, start date 12/30/15 18:02:00 RN VASCULAR promethazin No Kyle K 12.5 mg = Memoria e 3-11 Silvestre 0.5 mL, l 00:02: Injection, Ralls 00 IM, Once PRN for severe nausea, first dose 12/30/15 18:02:00 RN VASCULAR albuterol No Kyle K 2.5 mg = 3 Memoria 2.5 mg/3 mL 3-11 Silvestre mL, Soln, l (0.083%) 00:02: NEB, Once Herm connie inhalation 00 PRN for solution wheezing, first dose 12/30/15 18:02:00 RN VASCULAR Demerol HCl No Kyle K 12.5 mg = Memoria 3-11 Silvestre 0.25 mL, l 00:02: Injection, Denis 00 IV Push, Once PRN for shivers, first dose 12/30/15 18:02:00 RN VASCULAR ondansetron No Kyle K 4 mg = 2 Memoria 3-11 Silvestre mL, l 00:02: Injection, Denis 00 IV Push, q15min PRN for nausea/vom iting, order duration: 2 doses, first dose 12/30/15 18:02:00 RN VASCULAR, stop date Limited # of times Dilaudid No Kyle K 0.5 mg = Mem oria 3-11 Silvestre 0.25 mL, l 00:02: Injection, Ralls 00 IV Push, q10min PRN for pain severe (7-10), first dose 12/30/15 18:02:00 RN VASCULAR diphenhydrA No Kyle K 25 mg = M emoria MINE 3-11 Silvestre 0.5 mL, l 00:02: Injection, Denis 00 IV Push, Once PRN for itching, first dose 12/30/15 18:02:00 RN VASCULAR LR 1,000 mL No Kyle K 1,000 mL, Memoria 3-11 Silvestre IV, 75 l 00:02: mL/hr, Ralls 00 start date 12/30/15 18:02:00 RN VASCULAR Saline Lock No Kyle K 10 mL, Me moria Flush 3-11 Silvestre Soln, IV l 00:02: Push, As Ralls 00 Indicated PRN for flush, first dose 12/30/15 18:02:00 RN VASCULAR Bupivacaine 2015-0 No Kyle K 300 mL, M emoria 0.25% 300 3-11 Silvestre Nerve l mL pump 300 00:02: Block, 5 He rmann mL 00 mL/hr, start date 12/30/15 18:02:00 RN VASCULAR Misc 0 No Perico 1,000 mL, Memori a Medication 3-10 Wheat Soln-IV, l 23:42: IV, Once, Denis 00 first dose 12/30/15 17:42:00 RN VASCULAR, stop date 12/30/15 17:42:00 RN VASCULAR Misc No Perico 1,000 mL, Memori a Medication 3-10 Wheat Soln-IV, l 23:42: IV, Once, Denis 00 first dose 12/30/15 17:42:00 RN VASCULAR, stop date 12/30/15 17:42:00 RN VASCULAR fentaNYL No Perico 25 mcg = Mem oria 3-10 Wheat 0.5 mL, l 23:20: Injection, Ralls 00 IV, Once, first dose 12/30/15 17:20:00 RN VASCULAR, stop date 12/30/15 17:20:00 RN VASCULAR fentaNYL 2015-0 No Perico 25 mcg = Mem oria 3-10 Wheat 0.5 mL, l 23:20: Injection, Denis 00 IV, Once, first dose 12/30/15 17:20:00 RN VASCULAR, stop date 12/30/15 17:20:00 RN VASCULAR ondansetron 0 No Perico 4 mg = 2 Memoria 3-10 Wheat mL, l 23:03: Injection, Ralls 00 IV, Once, first dose 12/30/15 17:03:00 RN VASCULAR, stop date 12/30/15 17:03:00 RN VASCULAR ondansetron 0 No Perico 4 mg = 2 Memoria 3-10 Wheat mL, l 23:03: Injection, Denis 00 IV, Once, first dose 12/30/15 17:03:00 RN VASCULAR, stop date 12/30/15 17:03:00 RN VASCULAR fentaNYL 0 No Perico 25 mcg = Mem oria 3-10 Wheat 0.5 mL, l 23:00: Injection, Ralls 00 IV, Once, first dose 12/30/15 17:00:00 RN VASCULAR, stop date 12/30/15 17:00:00 RN VASCULAR fentaNYL 2015-0 No Perico 25 mcg = Mem oria 3-10 Wheat 0.5 mL, l 23:00: Injection, Denis 00 IV, Once, first dose 12/30/15 17:00:00 RN VASCULAR, stop date 12/30/15 17:00:00 RN VASCULAR fentaNYL 2015-0 No Perico 25 mcg = Mem oria 3-10 Wheat 0.5 mL, l 22:48: Injection, Ralls 00 IV, Once, first dose 12/30/15 16:48:00 RN VASCULAR, stop date 12/30/15 16:48:00 RN VASCULAR fentaNYL No Perico 25 mcg = Mem oria 3-10 Wheat 0.5 mL, l 22:48: Injection, Ralls 00 IV, Once, first dose 12/30/15 16:48:00 RN VASCULAR, stop date 12/30/15 16:48:00 RN VASCULAR fentaNYL 2015-0 No Perico 25 mcg = Mem oria 3-10 Wheat 0.5 mL, l 22:37: Injection, Denis 00 IV, Once, first dose 12/30/15 16:37:00 RN VASCULAR, stop date 12/30/15 16:37:00 RN VASCULAR fentaNYL 0 No Perico 25 mcg = Mem oria 3-10 Wheat 0.5 mL, l 22:37: Injection, Ralls 00 IV, Once, first dose 12/30/15 16:37:00 RN VASCULAR, stop date 12/30/15 16:37:00 RN VASCULAR dexamethaso 2015-0 No Perico 8 mg = 2 Memoria ne 3-10 Wheat mL, l 22:23: Injection, Denis 00 IV, Once, first dose 12/30/15 16:23:00 RN VASCULAR, stop date 12/30/15 16:23:00 RN VASCULAR dexamethaso 2015-0 No Perico 8 mg = 2 Memoria ne 3-10 Wheat mL, l 22:23: Injection, Ralls 00 IV, Once, first dose 12/30/15 16:23:00 RN VASCULAR, stop date 12/30/15 16:23:00 RN VASCULAR Misc 2015-0 No Perico 1,000 mL, Memori a Medication 3-10 Wheat Soln-IV, l 22:21: IV, Once, Ralls 00 first dose 12/30/15 16:21:00 RN VASCULAR, stop date 12/30/15 16:21:00 RN VASCULAR Misc 2015-0 No Perico 1,000 mL, Memori a Medication 3-10 Wheat Soln-IV, l 22:21: IV, Once, Ralls 00 first dose 12/30/15 16:21:00 RN VASCULAR, stop date 12/30/15 16:21:00 RN VASCULAR clindamycin Yes Perico 928.125 M emoria 3-10 Wheat mg, l 22:18: Soln-IV, Denis 00 IV, Once, first dose 12/30/15 16:18:00 RN VASCULAR, stop date 12/30/15 16:18:00 RN VASCULAR clindamycin Yes Perico 928.125 M emoria 3-10 Wheat mg, l 22:18: Soln-IV, Ralls 00 IV, Once, first dose 12/30/15 16:18:00 RN VASCULAR, stop date 12/30/15 16:18:00 RN VASCULAR fentaNYL No Perico 25 mcg = Mem oria 3-10 Wheat 0.5 mL, l 22:05: Injection, Ralls 00 IV, Once, first dose 12/30/15 16:05:00 RN VASCULAR, stop date 12/30/15 16:05:00 RN VASCULAR midazolam No Perico 0.5 mg = Me moria 3-10 Wheat 0.5 mL, l 22:05: Injection, Ralls 00 IV, Once, first dose 12/30/15 16:05:00 RN VASCULAR, stop date 12/30/15 16:05:00 RN VASCULAR fentaNYL No Perico 25 mcg = Mem oria 3-10 Wheat 0.5 mL, l 22:05: Injection, Denis 00 IV, Once, first dose 12/30/15 16:05:00 RN VASCULAR, stop date 12/30/15 16:05:00 RN VASCULAR midazolam No Perico 0.5 mg = Me moria 3-10 Wheat 0.5 mL, l 22:05: Injection, Ralls 00 IV, Once, first dose 12/30/15 16:05:00 RN VASCULAR, stop date 12/30/15 16:05:00 RN VASCULAR lidocaine 2015-0 No Perico 3 mL, Memor ia 3-10 Wheat Injection, l 21:58: IV, Once, Ralls 00 first dose 12/30/15 15:58:00 RN VASCULAR, stop date 12/30/15 15:58:00 RN VASCULAR propofol No Perico 120 mg = Mem oria 3-10 Wheat 12 mL, l 21:58: Emulsion, Ralls 00 IV, Once, first dose 12/30/15 15:58:00 RN VASCULAR, stop date 12/30/15 15:58:00 RN VASCULAR lidocaine No Perico 3 mL, Memor ia 3-10 Wheat Injection, l 21:58: IV, Once, Ralls 00 first dose 12/30/15 15:58:00 RN VASCULAR, stop date 12/30/15 15:58:00 RN VASCULAR propofol No Perico 120 mg = Mem oria 3-10 Wheat 12 mL, l 21:58: Emulsion, Ralls 00 IV, Once, first dose 12/30/15 15:58:00 RN VASCULAR, stop date 12/30/15 15:58:00 RN VASCULAR midazolam No Perico 0.5 mg = Me moria 3-10 Wheat 0.5 mL, l 21:50: Injection, Denis 00 IV, Once, first dose 12/30/15 15:50:00 RN VASCULAR, stop date 12/30/15 15:50:00 RN VASCULAR fentaNYL No Perico 25 mcg = Mem oria 3-10 Wheat 0.5 mL, l 21:50: Injection, Denis 00 IV, Once, first dose 12/30/15 15:50:00 RN VASCULAR, stop date 12/30/15 15:50:00 RN VASCULAR midazolam No Perico 0.5 mg = Me moria 3-10 Wheat 0.5 mL, l 21:50: Injection, Denis 00 IV, Once, first dose 12/30/15 15:50:00 RN VASCULAR, stop date 12/30/15 15:50:00 RN VASCULAR fentaNYL No Perico 25 mcg = Mem oria 3-10 Wheat 0.5 mL, l 21:50: Injection, Denis 00 IV, Once, first dose 12/30/15 15:50:00 RN VASCULAR, stop date 12/30/15 15:50:00 RN VASCULAR midazolam 2015-0 No Perico 0.5 mg = Me moria 3-10 Wheat 0.5 mL, l 21:10: Injection, Denis 00 IV, Once, first dose 12/30/15 15:10:00 RN VASCULAR, stop date 12/30/15 15:10:00 RN VASCULAR fentaNYL 2015-0 No Perico 25 mcg = Mem oria 3-10 Wheat 0.5 mL, l 21:10: Injection, Denis 00 IV, Once, first dose 12/30/15 15:10:00 RN VASCULAR, stop date 12/30/15 15:10:00 RN VASCULAR midazolam 2015- No Perico 0.5 mg = Me moria 3-10 Wheat 0.5 mL, l 21:10: Injection, Ralls 00 IV, Once, first dose 12/30/15 15:10:00 RN VASCULAR, stop date 12/30/15 15:10:00 RN VASCULAR fentaNYL 2015- No Perico 25 mcg = Mem oria 3-10 Wheat 0.5 mL, l 21:10: Injection, Ralls 00 IV, Once, first dose 12/30/15 15:10:00 RN VASCULAR, stop date 12/30/15 15:10:00 RN VASCULAR fentaNYL 2015-0 No Perico 25 mcg = Mem oria 3-10 Wheat 0.5 mL, l 21:05: Injection, Denis 00 IV, Once, first dose 12/30/15 15:05:00 RN VASCULAR, stop date 12/30/15 15:05:00 RN VASCULAR midazolam 2015-0 No Perico 0.5 mg = Me moria 3-10 Wheat 0.5 mL, l 21:05: Injection, Ralls 00 IV, Once, first dose 12/30/15 15:05:00 RN VASCULAR, stop date 12/30/15 15:05:00 RN VASCULAR fentaNYL 2015-0 No Perico 25 mcg = Mem oria 3-10 Wheat 0.5 mL, l 21:05: Injection, Ralls 00 IV, Once, first dose 12/30/15 15:05:00 RN VASCULAR, stop date 12/30/15 15:05:00 RN VASCULAR midazolam 2015-0 No Perico 0.5 mg = Me moria 3-10 Wheat 0.5 mL, l 21:05: Injection, Ralls 00 IV, Once, first dose 12/30/15 15:05:00 RN VASCULAR, stop date 12/30/15 15:05:00 RN VASCULAR clindamycin No Jose Francisco 900 mg, IV Memoria 3-10 Johnson Piggyback, l 20:00: Once, Ralls 00 infuse over 30 minutes, first dose 12/30/15 14:00:00 RN VASCULAR, stop date 12/30/15 14:00:00 RN VASCULAR, Prophylaxi s clindamycin No Jose Francisco 900 mg, IV Memoria 3-10 Johnson Piggyback, l 20:00: Once, Ralls 00 infuse over 30 minutes, first dose 12/30/15 14:00:00 RN VASCULAR, stop date 12/30/15 14:00:00 RN VASCULAR, Prophylaxi s LR 1,000 mL No Kyle K 1,000 mL, Memoria 3-10 Silvestre IV, 30 l 19:27: mL/hr, Denis 00 start date 12/30/15 13:27:00 RN VASCULAR Lidocaine No Kyle K 0.2 mL, Mem oria 2% 0.2 mL 3-10 Silvestre Injection, l IV Start 19:27: Subcutaneo Her hunt [[place]] 00 us, Once PRN for other (see comment), first dose 12/30/15 13:27:00 RN VASCULAR LR 1,000 mL No Kyle K 1,000 mL, Memoria 3-10 Silvestre IV, 30 l 19:27: mL/hr, Ralls 00 start date 12/30/15 13:27:00 RN VASCULAR Lidocaine No Kyle K 0.2 mL, Mem oria 2% 0.2 mL 3-10 Silvestre Injection, l IV Start 19:27: Subcutaneo Her hunt [[place]] 00 us, Once PRN for other (see comment), first dose 12/30/15 13:27:00 RN VASCULAR Seroquel Yes 100 mg, Memori a 3-09 Oral, l 14:40: Daily, 0 Ralls 00 Refill(s), migraines acetaminoph Yes 1 tabs, Mem oria en-HYDROcod 3-09 Oral, l one 325 14:40: q6hr, 0 Denis mg-5 mg 00 Refill(s), oral tablet pain traMADol 50 Yes 50 mg = 1 M emoria mg oral 3-09 tabs, l tablet 14:40: Oral, Ralls 00 q4hr, 0 Refill(s), pain amLODIPine- Yes 1 tabs, Mem oria atorvastati 12-28 Oral, qHS, l n 5 mg-40 14:40: 0 Denis mg oral 00 Refill(s), tablet cholestero l/hyperten will Osteo 2015- Yes Oral, Memoria Bi-Flex 3- Daily, 0 l 14:40: Refill(s), Ralls 00 supplement Nature's Yes 1,000 mg = Mem oria Bounty Red 12-28 2 caps, l Krill Oil 14:40: Oral, BID, He rmann 500 mg oral 00 0 capsule Refill(s), supplement aspirin 81 Yes 81 mg = 1 Me moria mg oral 12-28 tabs, l tablet 14:40: Oral, Ralls 00 Daily, 0 Refill(s), supplement Axert 12.5 Yes 12.5 mg = Me moria mg oral 12-28 1 tabs, l tablet 14:40: Oral, Ralls 00 Once, PRN for migraine headache, may repeat dose once in 2 hours, # 6 tabs, 0 Refill(s), migrainesm ay repeat dose once in 2 hours Wellbutrin Yes 300 mg, Turner arnoldo XL 12-28 Oral, l 14:40: q24hr, 0 Ralls 00 Refill(s), migraines Seroquel Yes 100 mg, Memori a 3-09 Oral, l 14:40: Daily, 0 Denis 00 Refill(s), migraines acetaminoph Yes 1 tabs, Mem oria en-HYDROcod - Oral, l one 325 14:40: q6hr, 0 Denis mg-5 mg 00 Refill(s), oral tablet pain traMADol 50 Yes 50 mg = 1 M emoria mg oral 3-09 tabs, l tablet 14:40: Oral, Ralls 00 q4hr, 0 Refill(s), pain amLODIPine- Yes 1 tabs, Mem oria atorvastati 12-28 Oral, qHS, l n 5 mg-40 14:40: 0 Ralls mg oral 00 Refill(s), tablet cholestero l/hyperten will Osteo Yes Oral, Memoria Bi-Flex 3- Daily, 0 l 14:40: Refill(s), Ralls 00 supplement Nature's Yes 1,000 mg = Mem oria Bounty Red 12-28 2 caps, l Krill Oil 14:40: Oral, BID, He rmann 500 mg oral 00 0 capsule Refill(s), supplement aspirin 81 Yes 81 mg = 1 Me moria mg oral 12-28 tabs, l tablet 14:40: Oral, Ralls 00 Daily, 0 Refill(s), supplement Axert 12.5 Yes 12.5 mg = Me moria mg oral 12-28 1 tabs, l tablet 14:40: Oral, Denis 00 Once, PRN for migraine headache, may [...] Completed [facility] vaccine-unspecified< 00:00:00 Herm connie sup>1</sup> Hx influenza 2019-08-13 Completed [facility] vaccine-unspecified< 00:00:00 Herm connie sup>1</sup> pneumococcal 2019-05-14 Completed [facility] 23-valent 00:00:00 Denis vaccine<sup>3</sup> pneumococcal 2019-05-14 Completed [facility] 23-valent 00:00:00 Denis vaccine<sup>3</sup> Hx influenza 2011-08-15 Completed [facility] vaccine-unspecified< 14:42:42 Herm connie sup>1</sup> Hx influenza 2011-08-15 Completed [facility] vaccine-unspecified< 14:42:42 Herm connie sup>2</sup> Hx influenza 2011-08-15 Completed [facility] vaccine-unspecified< 14:42:42 Herm connie sup>1</sup> Hx influenza 2011-08-15 Completed [facility] vaccine-unspecified< 14:42:42 Herm connie sup>2</sup> Vital Signs Vital Name Observation Time Observation Value Comments Source Temperature Oral (F) 2022-04-19 19:52:00 97.6 F [facility] Height 2022-04-19 19:52:00 170.18 cm [facility] [place] Weight 2022-04-19 19:52:00 [facility] [place] BMI Calculated 2022-04-19 19:52:00 Memori al Denis Heart Rate 2021-10-17 21:23:00 [facility] [place] Systolic (mm Hg) 2021-10-17 21:23:00 Turner rial Denis Diastolic (mm Hg) 2021-10-17 21:23:00 Mem orial [place] Height 2021-10-17 21:23:00 165.1 cm [facility] [place] Weight 2021-10-17 21:23:00 [facility] BMI Calculated 2021-10-17 21:23:00 [facility] al Denis Heart Rate 2021-09-09 20:12:00 [facility] Heart Rate 2021-09-09 20:08:00 [facility] Systolic (mm Hg) 2021-09-09 20:08:00 Turner rial Denis Diastolic (mm Hg) 2021-09-09 20:08:00 Mem orial Denis Height 2021-09-09 20:08:00 165.1 cm [facility] Weight 2021-09-09 20:08:00 [facility] [place] BMI Calculated 2021-09-09 20:08:00 [facility] [place] Systolic (mm Hg) 2020-09-15 15:59:00 Turner rial [place] Diastolic (mm Hg) 2020-09-15 15:59:00 Mem orial Denis Heart Rate 2020-09-15 15:59:00 [facility] [place] Height 2020-09-15 15:59:00 165.1 cm [facility] Weight 2020-09-15 15:59:00 [facility] [place] BMI Calculated 2020-09-15 15:59:00 [facility] [place] Systolic (mm Hg) 2019-12-16 20:42:00 Turner rial [place] Diastolic (mm Hg) 2019-12-16 20:42:00 Mem orial [place] Heart Rate 2019-12-16 20:42:00 [facility] [place] Temperature Oral (F) 2019-12-16 20:42:00 98.2 F [facility] Height 2019-12-16 20:42:00 170.18 cm [facility] Weight 2019-12-16 20:42:00 [facility] [place] BMI Calculated 2019-12-16 20:42:00 [facility] Denis Systolic (mm Hg) 2019-10-02 21:53:00 Turner rial Denis Diastolic (mm Hg) 2019-10-02 21:53:00 Mem orial [place] Heart Rate 2019-10-02 21:53:00 [facility] Denis Temperature Oral (F) 2019-10-02 21:53:00 97.9 F [facility] [place] Height 2019-10-02 21:53:00 165.1 cm [facility] [place] Weight 2019-10-02 21:53:00 [facility] [place] BMI Calculated 2019-10-02 21:53:00 [facility] al Denis Height 2019-08-15 14:54:00 165.1 cm [facility] Weight 2019-08-15 14:54:00 [facility] [place] BMI Calculated 2019-08-15 14:54:00 [facility] Denis Systolic (mm Hg) 2019-08-15 14:54:00 Turner rial Denis Diastolic (mm Hg) 2019-08-15 14:54:00 Mem orial Denis Heart Rate 2019-08-15 14:54:00 [facility] [place] Temperature Oral (F) 2019-08-15 14:54:00 97.6 F [facility] [place] Systolic (mm Hg) 2019-07-31 15:37:00 Turner rial Denis Diastolic (mm Hg) 2019-07-31 15:37:00 Mem orial Denis Heart Rate 2019-07-31 15:37:00 [facility] Temperature Oral (F) 2019-07-31 15:37:00 98.2 F [facility] [place] Height 2019-07-31 15:37:00 165.1 cm [facility] [place] Weight 2019-07-31 15:37:00 [facility] Denis BMI Calculated 2019-07-31 15:37:00 [facility] [place] Weight 2019-03-27 15:18:00 [facility] [place] BMI Calculated 2019-03-27 15:18:00 [facility] Denis Height 2019-03-27 15:18:00 165.1 cm [facility] Temperature Oral (F) 2019-03-27 15:18:00 98.4 F [facility] Heart Rate 2019-03-27 15:18:00 [facility] [place] Systolic (mm Hg) 2019-03-27 15:18:00 Turner rial [place] Diastolic (mm Hg) 2019-03-27 15:18:00 Mem orial [place] Height 2019-01-02 19:16:00 165.1 cm [facility] Denis BMI Calculated 2019-01-02 19:16:00 [facility] al [place] Weight 2019-01-02 19:16:00 [facility] [place] Heart Rate 2019-01-02 19:16:00 [facility] Denis Systolic (mm Hg) 2019-01-02 19:16:00 Turner rial [place] Diastolic (mm Hg) 2019-01-02 19:16:00 [facility] o[facility] [place] Height 2019-01-02 14:26:00 167.01 cm [facility] BMI Calculated 2019-01-02 14:26:00 [facility] [place] Weight 2019-01-02 14:26:00 [facility] Heart Rate 2019-01-02 14:26:00 [facility] Denis Temperature Oral (F) 2019-01-02 14:26:00 97.9 F [facility] [place] Systolic (mm Hg) 2019-01-02 14:26:00 Turner rial Denis Diastolic (mm Hg) 2019-01-02 14:26:00 Mem orial Denis Systolic (mm Hg) 2018-07-18 18:33:00 Turner rial [place] Diastolic (mm Hg) 2018-07-18 18:33:00 Mem orial [place] Heart Rate 2018-07-18 18:33:00 [facility] [place] Weight 2018-07-18 18:33:00 [facility] Denis BMI Calculated 2018-06-11 18:31:00 [facility] [place] Weight 2018-06-11 18:31:00 [facility] Systolic (mm Hg) 2018-06-11 18:31:00 Turner rial [place] Diastolic (mm Hg) 2018-06-11 18:31:00 Mem orial [place] Height 2018-06-11 18:31:00 170.18 cm [facility] [place] Temperature Oral (F) 2018-06-11 18:31:00 98.3 F [facility] Heart Rate 2018-06-11 18:31:00 [facility] [place] Weight 2018-01-10 16:14:00 [facility] [place] Height 2018-01-10 16:14:00 170.18 cm [facility] Denis BMI Calculated 2018-01-10 16:14:00 [facility] al Denis Heart Rate 2018-01-10 16:14:00 [facility] [place] Systolic (mm Hg) 2018-01-10 16:14:00 Turner rial [place] Diastolic (mm Hg) 2018-01-10 16:14:00 Mem orial [place] BMI Calculated 2018-01-09 15:06:00 [facility] al [place] Height 2018-01-09 15:06:00 170.18 cm [facility] Denis Weight 2018-01-09 15:06:00 [facility] [place] Systolic (mm Hg) 2018-01-09 15:06:00 Turner rial Denis Diastolic (mm Hg) 2018-01-09 15:06:00 Mem orial Denis Heart Rate 2018-01-09 15:06:00 [facility] [place] Temperature Oral (F) 2018-01-09 15:06:00 97.9 F [facility] [place] Weight 2016-11-14 16:17:00 [facility] [place] Height 2016-11-14 16:17:00 170.18 cm [facility] Denis BMI Calculated 2016-11-14 16:17:00 [facility] al [place] Respitory Rate 2015-12-31 01:25:00 Memori al Denis Systolic (mm Hg) 2015-12-31 00:50:00 Turner rial [place] Respitory Rate 2015-12-31 00:50:00 Memori al Denis Heart Rate 2015-12-31 00:50:00 [facility] Denis Systolic (mm Hg) 2015-12-31 00:40:00 Turner rial [place] Respitory Rate 2015-12-31 00:40:00 [facility] al [place] Heart Rate 2015-12-31 00:40:00 [facility] Denis Heart Rate 2015-12-31 00:30:00 [facility] [place] Systolic (mm Hg) 2015-12-31 00:30:00 Turner rial Denis Temperature Oral (F) 2015-12-30 23:50:00 37.1 Linda [facility] Height 2015-12-30 19:23:00 169 cm [facility] [place] Weight 2015-12-30 19:23:00 [facility] Denis Temperature Oral (F) 2015-12-30 19:23:00 36.6 Linda [facility] Height 2015-12-29 14:13:00 170 cm [facility] Weight 2015-12-29 14:13:00 [facility] Procedures Procedure Date / Time Performing Clinician Source Performed Diabetic retinal eye 2019-12-11 06:00:00 Memoria l Denis exam<sup>1</sup> Mammogram 2017-05-05 05:00:00 [facility] Her hunt Colonoscopy<sup>2</sup> 2016-11-17 06:00:00 Turner rial R[place] OPEN REDUCTION INTERNAL 2015-12-30 22:13:00 Jr Johnsonew Tunrer rial Denis FIXATION RADIUS INTRA-ARTICULAR W/3 FRAGMENTS 04341 (Right)<sup>1</sup> Repair of wrist<sup>3</sup> 2015-12-30 06:00:00 [facility] Denis skin cancer removed from 2011-10-22 00:00:00 Mem orial Denis arm Skin cancer of [facility] Ralls arm<sup>4</sup> Cholecystectomy [facility] Denis Procedure<sup>2</sup> [facility] H ermann Tubal ligation [facility] Eye operation [facility] [place] Biopsy of breast [facility] Vicente n bilateral radial kerototomy Turner rial Ralls bilateral tubal ligation Memoria l Denis colonoscopy [facility] Encounters Start End Encounter Admission Attending Care Care Encounter Source Date/Time Date/Time Type Type Clinicians Facility Department ID 2022-03-13 Inpatient HARJEET King, JERSEY ENDO [id number] [facility] 09:00:[address] 2022-07-26 2022-07-26 Outpatient [facility] [id number] [place] 00:00:00 00:00:00 MARY 622 [address] 2022-07-26 2022-07-26 [facility] [id number] [place] 00:00:00 00:00:00 MARY [address]Octav[address] 2022-07-26 2022-07-26 [facility] [id number] [place] 00:00:00 00:00:00 MARY [address] 2022-07-112022-07-11 Outpatient EKERUO, [facility] [id number] [place] 00:00:00 00:00:00 MARY 502 Method i 2022-07-04 2022-07-04 Outpatient KIEL, [facility] [id number] [place] 00:00:00 00:00:00 MARY 547 Meth[address] di 2022-06-24 2022-06-28 Inpatient AKIKO, [facility]4 [id number] [place] 00:00:00 00:00:00 ADIL 904 Method i 2022-06-14 2022-06-14 Outpatient JERSEY ContehCL OUTD [id number] [facility] 04:58:00 04:58:00 Quentin 89 [facility] 2022-06-07 2022-06-07 Outpatient LEONEL Conteh OUTD [id number] [facility] 06:37:00 06:37:00 Quentin 64 [facility] 2022-05-04 2022-05-04 Outpatient Armstrong_B U [facility] [id number] [place] 00:00:00 00:00:00 [id number] 2022-04-28 2022-04-29 Outpatient CRISTOBAL, [place] [id number] [place] 00:00:00 00:00:00 DARRIUS Lott Method i 2022-04-19 2022-04-20 Outpatient nullFlavo [facility] 3 [id number] Memoria 21:20:00 04:59:59 r Medicine 56 l Carrillo Zhang n 2022-04-19 2022-04-20 Outpatient nullFlavo [facility] 3 [id number] Memoria 21:20:00 04:59:59 r Medicine 56 l Carrillo Zhang n 2022-04-19 2022-04-19 Outpatient Rodriguez, [facility] [id number] 16:20:00 23:59:59 Antonella N 56 2022-04-19 2022-04-19 Outpatient MHIE MHIE [id number] Memoria 16:20:00 16:20:00 56 l Denis 2022-04-16 2022-04-16 Emergency TANYA, [facility] [id number] [place] 00:00:00 00:00:00 ROGELIO [address] 2022-04-06 2022-04-15 Inpatient RADHA [facility] [id number] [place] 00:00:00 00:00:00 PETER [address] 2022-03-08 2022-03-08 Outpatient [facility] LA0 [id number] [facility] 07:07:00 07:07:00 79 [facility] 2022-03-08 2022-03-08 Outpatient Mic Warren [facility] HCAPM [id number] [facility] 07:07:00 07:07:00 [facility] 2022-03-06 2022-03-08 Phone nullFlavo [facility] Family [id number] Memoria 15:25:04 04:59:59 Message r Medicine 17 l Carrillo davis 2022-03-06 2022-03-08 Phone nullFlavo [facility] Family [id number] Memoria 15:25:04 04:59:59 Message r Medicine 17 l Carrillo davis 2022-03-06 2022-03-07 Outpatient [facility] [id number] 10:25:04 23:59:59 17 2022-03-03 2022-03-03 Emergency EM Tenke, Chris HCAPM POLLO LA00 [id number] [facility] 12:08:00 15:51:00 00 [facility] 2022-03-03 2022-03-03 Emergency EM Tenke, Chris HCAPM [facility] [id number] [facility] 12:08:00 15:51:00 [facility] 2022-02-27 2022-02-27 Outpatient HARJEET King, [facility] [id number] [facility] 07:10:00 07:10:00 Adam 92 [facility] 2022-01-18 2022-01-18 Ambulatory nullFlavo [facility] Family 3 [id number] Memoria 15:15:00 15:15:00 Pre-Reg r Medicine 54 l Carrillo davis 2022-01-18 2022-01-18 Ambulatory nullFlavo [facility] Family 3 [id number] Memoria 15:15:00 15:15:00 Pre-Reg r Medicine 54 l Carrillo davis 2022-01-18 2022-01-18 Outpatient MHIE MHIE [id number] Memoria 10:15:00 10:15:00 54 l Denis 2022-01-18 2022-01-18 Outpatient Michael, [facility] [id number] 10:15:00 10:15:00 Antonella N 54 2022-01-16 2022-01-16 Outpatient MHIE MHIE [id number] Memoria 10:30:00 10:30:00 55 l Denis 2022-01-16 2022-01-16 Outpatient MHIE MHIE [id number] Memoria 10:30:00 10:30:00 56 l Denis 2021-12-30 2021-12-30 Outpatient SUDARSHAN, [facility] [id number] [place] 00:00:00 00:00:00 MARY 779 Method i 2021-12-19 2021-12-28 Inpatient SOLIPURACecelia, [facility] [id number] [place] 00:00:00 00:00:00 MICHELLE 492 Method i 2021-12-19 2021-12-21 Phone nullFlavo [facility] Family [id number] Memoria 17:07:02 05:59:59 Message r Medicine 16 l Carrillo davis 2021-12-19 2021-12-21 Phone nullFlavo [facility] Family [id number] Memoria 17:07:02 05:59:59 Message r Medicine 16 l Carrillo davis 2021-12-19 2021-12-20 Outpatient [facility] MG [id number] 11:07:02 23:59:59 16 2021-11-15 2021-11-15 Outpatient MED, [facility] [id number] [place] 00:00:00 00:00:00 RAZIUDDIN 169 Meth aiden 2021-11-14 2021-11-14 Outpatient [facility], [facility] [id number] [place] 00:00:00 00:00:00 RAZIUDDIN [address] 2021-10-28 2021-10-30 Phone nullFlavo [facility] Family [id number] Memoria 19:33:53 05:59:59 Message r Medicine 15 l Carrillo davis 2021-10-28 2021-10-30 Phone nullFlavo [facility] [id number] Memoria 19:33:53 05:59:59 Message r Medicine 15 leonard Vizcaino Vicente davis 2021-10-28 2021-10-29 Outpatient [facility] [id number] 13:33:53 23:59:59 15 2021-10-19 2021-10-21 Phone nullFlavo [facility] [id number] Memoria 19:38:03 05:59:59 Message r Medicine 14 leonard PostVizcaino Vicente davis 2021-10-19 2021-10-21 Phone nullFlavo [facility] [id number] Memoria 19:38:03 05:59:59 Message r Medicine 14 leonard davis 2021-10-19 2021-10-20 Outpatient [facility] MG [id number] 13:38:03 23:59:59 14 2021-10-17 2021-10-18 Outpatient nullFlavo [facility] 3 [id number] Memoria 21:15:00 05:59:59 r Medicine 53 leonard davis 2021-10-17 2021-10-18 Outpatient nullFlavo [facility] 3 [id number] Memoria 21:15:00 05:59:59 r Medicine 53 leonard davis 2021-10-17 2021-10-17 Outpatient Rodriguez, MG MG [id number] 15:15:00 23:59:59 Antonella Davis 53 2021-10-17 2021-10-17 Outpatient MHIE IE [id number] Memoria 15:15:00 15:15:00 Elizabeth Barrios 2021-09-20 2021-09-20 Outpatient MED, [facility] [id number] [place] 00:00:00 00:00:00 RAZ[address]UDDIN [address] 2021-09-12 2021-09-13 Between nullFlavo [facility] [id number] Memoria 14:18:24 14:18:24 Visit r Medicine 63 leonard davis 2021-09-12 2021-09-13 Between nullFlavo [facility] [id number] Memoria 14:18:24 14:18:24 Visit r Medicine 63 leonard davis 2021-09-12 2021-09-13 Outpatient [facility] [id number] 08:18:24 08:18:24 62 2021-09-12 2021-09-13 Between nullFlavo [facility] [id number] Memoria 00:56:47 00:56:47 Visit r Medicine 62 leonard Rameycora davis 2021-09-12 2021-09-13 Between nullFlavo [facility] [id number] Memoria 00:56:47 00:56:47 Visit r Medicine 62 leonard PostVizcaino Vicente davis 2021-09-11 2021-09-12 Outpatient [facility] [id number] 18:56:47 18:56:47 61 2021-09-09 2021-09-10 Outpatient nullFlavo [facility] 3 [id number] Memoria 20:00:00 05:59:59 r Medicine 53 leonard PostVizcaino Vicente davis 2021-09-09 2021-09-10 Outpatient nullFlavo [facility] 3 [id number] Memoria 20:00:00 05:59:59 r Medicine 53 leonard PostVizcaino Vicente davis 2021-09-09 2021-09-09 Outpatient Rodriguez, [facility] [id number] 14:00:00 23:59:59 Antonella Davis 52 2021-09-09 2021-09-09 Outpatient MHIE MHIE [id number] Memoria 14:00:00 14:00:00 53 leonard Barrios 2021-09-06 2021-09-08 Phone nullFlavo [facility] [id number] Memoria 21:38:38 05:59:59 Message r Medicine 13 leonard davis 2021-09-06 2021-09-08 Phone nullFlavo [facility] [id number] [facility] 21:38:38 05:59:59 Message r Medicine 13 leonard davis 2021-09-06 2021-09-07 Outpatient [facility] [id number] 15:38:38 23:59:59 13 2021-09-07 2021-09-07 Outpatient EKERYADIRA, [facility] [id number] [place] 00:00:00 00:00:[address] 2021-09-05 2021-09-06 Between nullFlavo [facility] [id number] Memoria 15:33:59 15:33:59 Visit r Medicine 59 l Carrillo Zhang n 2021-09-05 2021-09-06 Between nullFlavo [facility] Family [id number] Memoria 15:33:59 15:33:59 Visit r Medicine 59 l Carrillo Zhang n 2021-09-05 2021-09-06 Outpatient [facility] [id number] 09:33:59 09:33:59 59 2021-07-14 2021-07-26 Inpatient SOLIPURAM, [facility] [id number] [place] 00:00:00 00:00:00 MICHELLE 329 Method i 2021-07-13 2021-07-13 Outpatient OPPERMANN, [facility] [id number] [place] 00:00:00 00:00:00 KRISTIAN 104 Method i 2021-06-30 2021-06-30 Outpatient AHMED, [facility] [id number] [place] 00:00:00 00:00:00 RAZIUDDIN 273 Meth aiden 2021-06-07 2021-06-07 Outpatient EKERUO, [facility] [id number] [place] 00:00:00 00:00:00 MARY 787 Method i 2021-06-07 2021-06-07 Outpatient DAOURA, [facility] [id number] [place] 00:00:00 00:00:00 NILESH 546 Method i 2021-05-19 2021-05-26 Inpatient LAYOAN, [facility] [id number] [place] 00:00:00 00:00:00 COURTNEY 275 [facility] i 2021-05-12 2021-05-12 Outpatient AHMED, [facility] [id number] [place] 00:00:00 00:00:00 RAZIUDDIN 199 Meth aiden 2021-05-11 2021-05-11 Outpatient EKERUO, [facility] [id number] [place] 00:00:00 00:00:00 MARY 640 [facility] 2021-05-06 2021-05-06 Outpatient EKERUO, [facility] [id number] [place] 00:00:00 00:00:00 MARY 435 [facility] i 2021-05-06 2021-05-06 Outpatient EKERUO, [facility] [id number] [place] 00:00:00 00:00:00 MARY 537 [facility] i 2021-05-03 2021-05-03 Outpatient EKERUO, [facility] [id number] [place] 00:00:00 00:00:00 MARY 709 [facility] i 2021-04-08 2021-04-21 Inpatient CAMILLE, [facility] [id number] [place] 00:00:00 00:00:00 MICHELLE 685 [facility] i 2021-03-09 2021-03-09 Outpatient AHMED, [facility] [id number] [place] 00:00:00 00:00:00 RAZIUDDIN 101 Meth aiden 2021-02-24 2021-02-24 [facility] [id number] [facility] 01:00:00 04:59:00 r Denis 58 l Deloit Karen 2021-02-24 2021-02-24 Outpatient nullFlavo [facility] [id number] [place] 01:00:00 04:59:00 r Denis 58 l Deloit Karen 2021-02-23 2021-02-23 Outpatient Ahmed, [facility] [id number] 20:00:00 23:59:00 Raziuddin 58 2021-02-23 2021-02-23 Outpatient AHMED, [facility] PUL [id number] [facility] 20:00:00 23:59:00 RAZIUDDIN 2021-02-10 2021-02-10 [facility] [facility] [id number] [place] 00:00:00 00:00:00 RAZIUDDIN 598 Meth aiden 2021-02-03 2021-02-08 Inpatient MARY ALICE, [facility] [id number] [place] 00:00:00 00:00:00 COURTNEY 060 Method i 2021-01-20 2021-01-20 Outpatient [facility] [id number] [place] 00:00:00 00:00:00 470 Method i 2021-01-18 2021-01-19 Outpatient nullFlavo MG Family 3 [id number] Memoria 19:30:00 04:59:59 r Medicine 51 l Carrillo davis 2021-01-18 2021-01-19 Outpatient nullFlavo MG Family 3 [id number] Memoria 19:30:00 04:59:59 r Medicine 51 l Carrillo Zhang n 2021-01-18 2021-01-18 Outpatient Rodriguez, [facility] [id number] 14:30:00 23:59:59 Antonella N 51 2021-01-18 2021-01-18 Outpatient [facility] [id number] Memoria 14:30:00 14:30:00 51 l Denis 2021-01-18 2021-01-18 Outpatient [facility] [id number] [place] 00:00:00 00:00:00 398 Method i 2021-01-14 2021-01-15 Between nullFlavo MG Family [id number] Memoria 13:38:03 13:38:03 Visit r Medicine 57 l Carrillo davis 2021-01-14 2021-01-15 Between nullFlavo MG Family [id number] Memoria 13:38:03 13:38:03 Visit r Medicine 57 l Carrillo Zhang n 2021-01-14 2021-01-15 Outpatient MG MG [id number] 08:38:03 08:38:03 57 2021-01-12 2021-01-12 Outpatient ADRIANA [facility] [id number] [place] 00:00:00 00:00:00 RAZIUDDIN 554 Meth aiden 2020-12-31 2021-01-05 [id number] [place] 00:00:00 00:00:00 COURTNEY 541 Method i 2020-12-17 2020-12-28 [facility] Vidya [id number] [place] 00:00:00 00:00:00 COURTNEY 559 Method i 2020-10-11 2020-10-18 Inpatient MARY ALICE [facility] [id number] [place] 00:00:00 00:00:00 COURTNEY 271 Method i 2020-09-15 2020-09-16 Outpatient nullFlavo MG Family 3 [id number] Memoria 16:30:00 05:59:59 r Medicine 50 l Carrillo davis 2020-09-15 2020-09-16 Outpatient nullFlavo MG Family 3 [id number] Memoria 16:30:00 05:59:59 r Medicine 50 l Carrillo Zhang n 2020-09-15 2020-09-15 Outpatient Michael MG [facility] [id number] 10:30:00 23:59:59 Antonella Davis 50 2020-09-15 2020-09-15 [facility] [id number] Memoria 10:30:00 10:30:00 50 l Denis 2020 2020-09-07 Inpatient SOLIPURAM, [facility] [id number] [place] 00:00:00 00:00:00 MICHELLE 464 Method i 2020-08-13 2020-09-01 Inpatient SOLIPURA, [facility] [id number] [place] 00:00:00 00:00:00 MICHELLE [address] 2020-08-13 2020-08-14 Outpt Diag nullFlavo [facility] [id number] Memoria 18:10:00 04:59:00 Services r Outpatient 06 l Imaging Ralls Deloit 2020-08-13 2020-08-14 Outpt Diag nullFlavo [facility] [id number] Memoria 18:10:00 04:59:00 Services r Outpatient 06 l Imaging Denis Deloit 2020-08-13 2020-08-13 Outpatient Amilcar, 29 [id number] 13:10:00 23:59:00 Tyrell Gaspar 2020-08-11 2020-08-12 Between nullFlavo [facility] Family [id number] Memoria 17:58:19 17:58:19 Visit r Medicine 56 l Carrillo Zhang n 2020-08-11 2020-08-12 Between nullFlavo [facility] Family [id number] Memoria 17:58:19 17:58:19 Visit r Medicine 56 l Carrillo Zhang n 2020-08-11 2020-08-12 Outpatient MG [facility] [id number] 12:58:19 12:58:19 56 2020-08-03 2020-08-04 Outpatient nullFlavo MG Family 3 [id number] Memoria 15:15:00 04:59:59 r Medicine 49 l Carrillo Zhang n 2020-08-03 2020-08-04 Outpatient nullFlavo MG Family 3 [id number] Memoria 15:15:00 04:59:59 r Medicine 49 l Carrillo Zhang n 2020-08-03 2020-08-03 Outpatient Michael, [facility] [id number] 10:15:00 23:59:59 Antonella Ryan 49 2020-08-03 2020-08-03 Outpatient MHIE MHIE [id number] Memoria 10:15:00 10:15:00 49 l Ralls 2020-06-22 2020-06-23 Outpt Diag nullFlavo [facility] [id number] Memoria 17:02:00 04:59:00 Services r Outpatient 05 l Imaging Denis Deloit 2020-06-22 2020-06-23 Outpt Diag nullFlavo [facility] [id number] Memoria 17:02:00 04:59:00 Services r Outpatient 05 l Imaging Denis Deloit 2020-06-22 2020-06-22 Outpatient Amilcar, 29 [facility] [id number] 12:02:00 23:59:00 Tyrell N 05 2020-06-17 2020-06-17 Ambulatory nullFlavo [facility] [id number] Memoria 19:00:00 19:00:00 Pre-Reg r Nephrology 46 l Carrillo Zhang n 2020-06-17 2020-06-17 Ambulatory nullFlavo [facility] [id number] Memoria 19:00:00 19:00:00 Pre-Reg r Nephrology 46 l Carrillo Zhang n 2020-06-17 2020-06-17 Outpatient MHIE IE [id number] Memoria 14:00:00 14:00:00 46 l Denis 2020-06-17 2020-06-17 [id number] 14:00:00 14:00:00 Daca, 46 Valarie J 2020-06-10 2020-06-10 Outpatient MHIE IE [id number] Memoria 11:15:00 11:15:00 47 l Ralls 2020-06-10 2020-06-10 Outpatient MHIE IE [id number] Memoria 11:15:00 11:15:00 47 l Denis 2020-06-02 2020-06-03 Outpatient nullFlavo [facility] [id number] Memoria 19:45:00 04:59:59 r Nephrology 48 l Carrillo Zhang n 2020-06-02 2020-06-03 [place] [id number] Memoria 19:45:00 04:59:59 r Nephrology 48 leonard Zhang ryan 2020-06-02 2020-06-02 [id number] 14:45:00 23:59:59 Dacmoira, 48 Valarie Haris 2020-06-02 2020-06-02 Outpatient MHIE IE [id number] Memoria 14:45:00 14:45:00 48 leonard Denis 2020-05-20 2020-05-20 Outpatient VICTORIANOIN, [facility] [id number] [place] [address] 00:00:00 00:00:00 FABIOLA [address] 2020-03-23 2020-03-25 Phone nullFlavo MG [id number] Memoria 16:17:50 04:59:59 Message r Nephrology 12 leonard Zhang ryan 2020-03-23 2020-03-25 Phone nullFlavo MG [id number] Memoria 16:17:50 04:59:59 Message r Nephrology 12 leonard Zhang ryan 2020-03-23 2020-03-24 Outpatient MHMG MG [id number] 11:17:50 23:59:59 12 2020-03-18 2020-03-19 [place] [id number] Memoria 19:00:00 04:59:59 r Nephrology 41 leonard Zhang ryan 2020-03-18 2020-03-19 [place] [id number] Memoria 19:00:00 04:59:59 r Nephrology 41 leonard Zhang ryan 2020-03-18 2020-03-18 Outpatient Baranowska- MG MG [id number] 14:00:00 23:59:59 Daca, 41 Valarie Haris 2020-03-18 2020-03-18 Outpatient MHIE IE [id number] Memoria 14:00:00 14:00:00 41 leonard Dneis 2020-03-08 2020-03-10 Phone nullFlavo MG [id number] Memoria 18:35:51 04:59:59 Message r Nephrology 11 leonard Archer Denis 2020-03-08 2020-03-10 Phone nullFlavo MG [id number] Memoria 18:35:51 04:59:59 Message r Nephrology 11 leonard Barrios 2020-03-08 2020-03-09 Outpatient MHMG MG [id number] 13:35:51 23:59:59 11 2020-02-11 2020-02-12 Outpatient nullFlavo MG Family 3 [id number] Memoria 15:15:00 04:59:59 r Medicine 45 l Carrillo Zhang n 2020-02-11 2020-02-12 Outpatient nullFlavo MG Family 3 [id number] Memoria 15:15:00 04:59:59 r Medicine 45 l Carrillo Zhang n 2020-02-11 2020-02-11 Outpatient Rodriguez, MHMG MG [id number] 10:15:00 23:59:59 Antonella N 45 2020-02-11 2020-02-11 Ambulatory nullFlavo MG Family 3 [id number] Memoria 15:15:00 15:15:00 Pre-Reg r Medicine 44 l Carrillo Zhang n 2020-02-11 2020-02-11 Ambulatory nullFlavo [facility] Family 3 [id number] Memoria 15:15:00 15:15:00 Pre-Reg r Medicine 44 l Carrillo Zhang n 2020-02-11 2020-02-11 Outpatient MHIE MHIE [id number] Memoria 10:15:00 10:15:00 45 leonard Barrios 2020-02-11 2020-02-11 Outpatient MHIE MHIE [id number] Memoria 10:15:00 10:15:00 45 leonard Denis 2020-02-11 2020-02-11 Outpatient Rodriguez, MG [facility] [id number] 10:15:00 10:15:00 Antonella N 44 2020-02-05 2020-02-07 Phone nullFlavo MG [id number] Memoria 13:23:32 04:59:59 Message r Nephrology 10 leonard Zhang n 2020-02-05 2020-02-07 Phone nullFlavo MG [id number] Memoria 13:23:32 04:59:59 Message r Nephrology 10 leonard Zhang n 2020-02-05 2020-02-06 Outpatient MHMG MG [id number] 08:23:32 23:59:59 10 2020-02-05 2020-02-06 Between nullFlavo [facility] Family [id number] Memoria 14:14:54 14:14:54 Visit r Medicine 52 leonard Zhang ryan 2020-02-05 2020-02-06 Between nullFlavo [facility] Family [id number] Memoria 14:14:54 14:14:54 Visit r Medicine 52 leonard Vizcaino Vicente davis 2020-02-05 2020-02-06 Outpatient MHMG MG [id number] 09:14:54 09:14:54 52 2020-02-05 2020-02-05 Outpatient MHIE MHIE [id number] Memoria 11:30:00 11:30:00 43 leonard Denis 2020-02-05 2020-02-05 Outpatient MHIE MHIE [id number] Memoria 11:30:00 11:30:00 43 leonard Denis 2020-02-02 2020-02-04 Phone nullFlavo [facility] Family [id number] Memoria 20:00:15 04:59:59 Message r Medicine 09 leonard Vizcaino Vicente davis 2020-02-02 2020-02-04 Phone nullFlavo [facility] Family [id number] Memoria 20:00:15 04:59:59 Message r Medicine 09 leonard Rameycora davis 2020-02-02 2020-02-03 Outpatient MG MG [id number] 15:00:15 23:59:59 09 2020-01-30 2020-02-01 Phone nullFlavo [facility] Family [id number] Memoria 17:18:28 04:59:59 Message r Medicine 08 leonard Carrillo Vicente davis 2020-01-30 2020-02-01 Phone nullFlavo [facility] Family [id number] Memoria 17:18:28 04:59:59 Message r Medicine 08 leonard Carrillo Viecnte davis 2020-01-30 2020-02-01 Phone nullFlavo MG [id number] Memoria 13:26:55 04:59:59 Message r Nephrology 07 leonard Carrillo Vicente davis 2020-01-30 2020-02-01 Phone nullFlavo MG [id number] Memoria 13:26:55 04:59:59 Message r Nephrology 07 leonard Vizcaino Vicente davis 2020-01-30 2020-01-31 Outpatient MHMG MG [id number] 12:18:28 23:59:59 08 2020-01-30 2020-01-31 Outpatient MHMG MG [id number] 08:26:55 23:59:59 07 2019-12-16 2019-12-17 Outpatient nullFlavo MG Family 3 [id number] Memoria 20:15:00 05:59:59 r Medicine 42 l Carrillo Zhang ryan 2019-12-16 2019-12-17 Outpatient nullFlavo MG Family 3 [id number] Memoria 20:15:00 05:59:59 r Medicine 42 l Carrillo Vicente ryan 2019-12-16 2019-12-16 Outpatient Rodriguez, MG MG [id number] 14:15:00 23:59:59 Antonella Davis 42 2019-12-16 2019-12-16 Outpatient [facility] [id number] Memoria 14:15:00 14:15:00 42 leonard Denis 2019-11-13 2019-11-15 Phone nullFlavo [facility] Family [id number] Memoria 14:22:27 05:59:59 Message r Medicine 06 l Carrillo Zhang ryan 2019-11-13 2019-11-15 Phone nullFlavo [facility] Family [id number] Memoria 14:22:27 05:59:59 Message r Medicine 06 leonard Zhang ryan 2019-11-13 2019-11-14 Outpatient MG MG [id number] 08:22:27 23:59:59 06 2019-10-17 2019-10-19 Phone nullFlavo [facility] Family [id number] Memoria 16:06:04 05:59:59 Message r Medicine 05 l Carrillo Vicente ryan 2019-10-17 2019-10-19 Phone nullFlavo [facility] Family [id number] Memoria 16:06:04 05:59:59 Message r Medicine 05 l Carrillo Rameycora davis 2019-10-17 2019-10-18 Outpatient MHMG MG [id number] 10:06:04 23:59:59 05 2019-10-02 2019-10-03 Between nullFlavo MG [id number] Memoria 20:05:03 20:05:03 Visit r Nephrology 45 l Archer Denis 2019-10-02 2019-10-03 Between nullFlavo MG [id number] Memoria 20:05:03 20:05:03 Visit r Nephrology 45 l Archer Ralls 2019-10-02 2019-10-03 Outpatient [facility] [id number] 14:05:03 14:05:03 45 2019-10-02 2019-10-03 Outpatient nullFlavo [facility] [id number] Memoria 20:45:00 05:59:59 r Nephrology 38 leonard davis 2019-10-02 2019-10-03 [place] [id number] Memoria 20:45:00 05:59:59 r Nephrology 38 leonard Zhang n 2019-10-02 2019-10-02 Outpatient Amandoka- [facility] [id number] 14:45:00 23:59:59 [place], 38 Valarie Carballo 2019-10-02 2019-10-02 [facility] [id number] Memoria 14:45:00 14:45:00 38 leonard Barrios 2019-09-26 2019-09-27 Between nullFlavo MG [id number] Memoria 00:07:10 00:07:10 Visit r Nephrology 43 leonard Barrios 2019-09-26 2019-09-27 Between nullFlavo [facility] [id number] Memoria 00:07:10 00:07:10 Visit r Nephrology 43 leonard Barrios 2019-09-25 2019-09-26 Outpatient [facility] [id number] 18:07:10 18:07:10 43 2019-09-25 2019-09-25 Outpatient IE IE [id number] Memoria 09:00:00 09:00:00 39 leonard Barrios 2019-09-25 2019-09-25 Outpatient IE IE [id number] Memoria 09:00:00 09:00:00 39 leonard Denis 2019-09-16 2019-09-17 Between nullFlavo [facility] Family [id number] Memoria 21:47:12 21:47:12 Visit r Medicine 41 leonard Zhang ryan 2019-09-16 2019-09-17 Between nullFlavo MG Family [id number] Memoria 21:47:12 21:47:12 Visit r Medicine 41 leonard Zhang ryan 2019-09-16 2019-09-17 Outpatient [facility] [id number] 15:47:12 15:47:12 41 2019-08-19 2019-08-20 Between nullFlavo [facility] Family [id number] Memoria 22:13:13 22:13:13 Visit r Medicine 40 leonard Zhang n 2019-08-19 2019-08-20 Between nullFlavo [facility] Family [id number] Memoria 22:13:13 22:13:13 Visit r Medicine 40 leonard Zhang n 2019-08-19 2019-08-20 Outpatient MHMG MHMG [id number] 17:13:13 17:13:13 40 2019-08-15 2019-08-16 Outpatient nullFlavo [facility] Family 3 [id number] Memoria 14:45:00 04:59:59 r Medicine 40 leonard Zhang n 2019-08-15 2019-08-16 Outpatient nullFlavo [facility] Family 3 [id number] Memoria 14:45:00 04:59:59 r Medicine 40 leonard Zhang n 2019-08-15 2019-08-15 Outpatient Rodriguez, MHMG MG [id number] 09:45:00 23:59:59 Antonella N 40 2019-08-15 2019-08-15 Outpatient MHIE MHIE [id number] Memoria 09:45:00 09:45:00 40 leonard Denis 2019-08-07 2019-08-07 Ambulatory nullFlavo [facility] Family 3 [id number] Memoria 16:00:00 16:00:00 Pre-Reg r Medicine 36 leonard Zhang n 2019-08-07 2019-08-07 Ambulatory nullFlavo MG Family 3 [id number] Memoria 16:00:00 16:00:00 Pre-Reg r Medicine 36 leonard Zhang n 2019-08-07 2019-08-07 Outpatient MHIE MHIE [id number] Memoria 11:00:00 11:00:00 36 leonard Ralls 2019-08-07 2019-08-07 Outpatient Rodriguez, MHMG MG [id number] 11:00:00 11:00:00 Antonella N 36 2019-07-31 2019-08-01 [place] [id number] Memoria 15:00:00 04:59:59 r Nephrology 35 l Carrillo Zhang n 2019-07-31 2019-08-01 Outpatient nullFlavo [facility] [id number] Memoria 15:00:00 04:59:59 r Nephrology 35 l Carrillo Zhang n 2019-07-31 2019-07-31 Outpatient Rodriguez, [facility] [id number] 10:00:00 23:59:59 Antonella N 35 2019-07-31 2019-07-31 Outpatient IE IE [id number] Memoria 12:00:00 12:00:00 37 leonard Barrios 2019-07-31 2019-07-31 Outpatient IE IE [id number] Memoria 12:00:00 12:00:00 37 leonard Barrios 2019-07-31 2019-07-31 Outpatient IE IE [id number] Memoria 10:00:00 10:00:00 35 leonard Barrios 2019-07-03 2019-07-05 Phone nullFlavo [facility] Family [id number] Memoria 15:15:06 04:59:59 Message r Medicine 04 leonard Zhang n 2019-07-03 2019-07-05 Phone nullFlavo [facility] Family [id number] Memoria 15:15:06 04:59:59 Message r Medicine 04 leonard Zhang n 2019-07-03 2019-07-05 Phone nullFlavo [facility] [id number] Memoria 15:10:51 04:59:59 Message r Nephrology 03 leonard Zhang n 2019-07-03 2019-07-05 Phone nullFlavo MG [id number] Memoria 15:10:51 04:59:59 Message r Nephrology 03 leonard Zhang n 2019-07-03 2019-07-04 Outpatient [facility] [id number] 10:15:06 23:59:59 04 2019-07-03 2019-07-04 Outpatient [facility] [id number] 10:10:51 23:59:59 03 2019-07-03 2019-07-03 Ambulatory nullFlavo [facility] [id number] Memoria 20:00:00 20:00:00 Pre-Reg r Nephrology 34 l Carrillo Zhang n 2019-07-03 2019-07-03 Ambulatory nullFlavo [facility] [id number] Memoria 20:00:00 20:00:00 Pre-Reg r Nephrology 34 l Carrillo Zhang n 2019-07-03 2019-07-03 Outpatient [facility] [id number] Memoria 15:00:00 15:00:00 34 leonard Barrios 2019-07-03 2019-07-03 Outpatient Vinnie- [facility] [id number] 15:00:00 15:00:00 Angela Toledo 2019-06-29 2019-06-30 Between nullFlavo MG [id number] Memoria 20:15:16 20:15:16 Visit r Nephrology 34 leonard Barrios 2019-06-29 2019-06-30 Between nullFlavo MG [id number] Memoria 20:15:16 20:15:16 Visit r Nephrology 34 leonard Barrios 2019-06-29 2019-06-30 Outpatient [facility] [id number] 15:15:16 15:15:16 34 2019-06-11 2019-06-13 Phone nullFlavo MG [id number] Memoria 15:29:54 04:59:59 Message r Nephrology 02 leonard Barrios 2019-06-11 2019-06-13 Phone nullFlavo MG [id number] Memoria 15:29:54 04:59:59 Message r Nephrology 02 leonard Barrios 2019-06-11 2019-06-12 Outpatient MG [facility] [id number] 10:29:54 23:59:59 02 2019-06-12 2019-06-12 [place] [id number] Memoria 16:30:00 16:30:00 Pre-Reg r Nephrology 29 l Carrillo davis 2019-06-12 2019-06-12 [place] [id number] Memoria 16:30:00 16:30:00 Pre-Reg r Nephrology 29 l Carrillo Zhang ryan 2019-06-12 2019-06-12 [place] [id number] Memoria 16:15:00 16:15:00 Pre-Reg r Nephrology 30 l Carrillo Zhang ryan 2019-06-12 2019-06-12 [place] [id number] Memoria 16:15:00 16:15:00 Pre-Reg r Nephrology 30 l Carrillo Zhang ryan 2019-06-12 2019-06-12 Ambulatory nullFlavo [facility] Family 3 [id number] Memoria 15:15:00 15:15:00 Pre-Reg r Medicine 31 leonard Zhang n 2019-06-12 2019-06-12 Ambulatory nullFlavo [facility] Family 3 [id number] Memoria 15:15:00 15:15:00 Pre-Reg r Medicine 31 leonard davis 2019-06-12 2019-06-12 Outpatient MHIE MHIE [id number] Memoria 11:30:00 11:30:00 29 leonard Ralls 2019-06-12 2019-06-12 Outpatient Baranowska- MG [facility] [id number] 11:30:00 11:30:00 [place] 29 Valarie Carballo 2019-06-12 2019-06-12 Outpatient MHIE MHIE [id number] Memoria 11:15:00 11:15:00 30 leonard Ralls 2019-06-12 2019-06-12 Outpatient Baranowska- MG [facility] [id number] 11:15:00 11:15:00 [place] Bob Valarie Carballo 2019-06-12 2019-06-12 Outpatient MHIE MHIE [id number] Memoria 10:15:00 10:15:00 31 leonard Ralls 2019-06-12 2019-06-12 Outpatient Rodriguez, MG MG [id number] 10:15:00 10:15:00 Antonella Davis 31 2019-06-09 2019-06-10 Inpatient Chelsea BARRAGAN, [facility] [place] [id number] [place] 10:05:00 17:55:00 [facility] [place] 2019-05-12 2019-05-14 Outpatient Chelsea BARRAGAN, [facility] [id number] [place] 21:36:00 19:00:00 EDUIN [facility] [place] 2019-05-12 2019-05-13 Outpatient nullFlavo [facility]gent [id number] Memoria 20:40:00 04:59:59 r Care 33 l Lise Ralls 2019-05-12 2019-05-13 Outpatient nullFlavo [facility] [id number] Memoria 20:40:00 04:59:59 r Care 33 l Lise Ralls 2019-05-12 2019-05-12 Outpatient Van MHMG MG [id number] 15:40:00 23:59:59 [place] Carlito waters 2019-05-12 2019-05-12 Outpatient MHIE MHIE [id number] Memoria 15:40:00 15:40:00 33 leonard Denis 2019-03-27 2019-03-28 Outpatient nullFlavo MG Family 3 [id number] Memoria 15:15:00 04:59:59 r Medicine 32 leonard Zhang ryan 2019-03-27 2019-03-28 Outpatient nullFlavo [facility] Family 3 [id number] Memoria 15:15:00 04:59:59 r Medicine 32 leonard Zhang ryan 2019-03-27 2019-03-27 Outpatient Lindawska- MG MG [id number] 10:15:00 23:59:59 Philly Toledo 2019-03-27 2019-03-27 Outpatient MHIE MHIE [id number] Memoria 10:15:00 10:15:00 33 leonard Denis 2019-01-05 2019-01-06 Between nullFlavo MG Family [id number] Memoria 19:00:16 19:00:16 Visit r Medicine 29 leonard Zhang ryan 2019-01-05 2019-01-06 Between nullFlavo MG Family [id number] Memoria 19:00:16 19:00:16 Visit r Medicine 29 leonard Zhang ryan 2019-01-05 2019-01-06 Outpatient MG MG [id number] 14:00:16 14:00:16 29 2019-01-02 2019-01-03 Between nullFlavo MG [id number] Memoria 15:02:37 15:02:37 Visit r Nephrology 27 leonard Zhang ryan 2019-01-02 2019-01-03 Between nullFlavo MG [id number] Memoria 15:02:37 15:02:37 Visit r Nephrology 27 leonard Zhang ryan 2019-01-02 2019-01-03 Outpatient MG MG [id number] 10:02:37 10:02:37 27 2019-01-02 2019-01-03 [place] [id number] Memoria 18:45:00 04:59:59 r Nephrology 28 l Carrillo Zhang ryan 2019-01-02 2019-01-03 Outpatient nullFlavo [facility] [id number] Memoria 18:45:00 04:59:59 r Nephrology 28 leonard Zhang n 2019-01-02 2019-01-03 Outpatient nullFlavo MG Family 3 [id number] Memoria 14:15:00 04:59:59 r Medicine 22 leonard Zhang n 2019-01-02 2019-01-03 Outpatient nullFlavo MG Family 3 [id number] Memoria 14:15:00 04:59:59 r Medicine 22 leonard Zhang n 2019-01-02 2019-01-02 Outpatient Barshaquillewska- [facility] [id number] 13:45:00 23:59:59 Reynold Toledo 2019-01-02 2019-01-02 Outpatient Rodriguez, [facility] [id number] 09:15:00 23:59:59 Antonella Davis 22 2019-01-02 2019-01-02 Outpatient MHIE IE [id number] Memoria 13:45:00 13:45:00 28 leonard Denis 2019-01-02 2019-01-02 Outpatient MHIE IE [id number] Memoria 09:15:00 09:15:00 22 leonard Denis 2018-12-31 2019-01-01 Between nullFlavo MG [id number] Memoria 23:59:47 23:59:47 Visit r Nephrology 26 leonard Zhang n 2018-12-31 2019-01-01 Between nullFlavo MG [id number] Memoria 23:59:47 23:59:47 Visit r Nephrology 26 leonard Zhang ryan 2018-12-31 2019-01-01 [facility] [id number] 18:59:47 18:59:47 26 2018-12-27 2018-12-28 Between nullFlavo MG [id number] Memoria 22:00:33 22:00:33 Visit r Nephrology 24 leonard Zhang ryan 2018-12-27 2018-12-28 Between nullFlavo MG [id number] Memoria 22:00:33 22:00:33 Visit r Nephrology 24 leonard Zhang ryan 2018-12-27 2018-12-28 [facility] [id number] 16:00:33 16:00:33 24 2018-12-27 2018-12-28 Between nullFlavo MG [id number] Memoria 04:48:44 04:48:44 Visit r Nephrology 23 leonard davis 2018-12-27 2018-12-28 Between nullFlavo [facility] [id number] Memoria 04:48:44 04:48:44 Visit r Nephrology 23 leonard davis 2018-12-26 2018-12-27 Outpatient MH[facility] MG [id number] 22:48:44 22:48:44 23 2018-11-14 2018-11-14 [place] [id number] Memoria 20:30:00 20:30:00 Pre-Reg r Nephrology 27 leonard davis 2018-11-14 2018-11-14 [place] [id number] Memoria 20:30:00 20:30:00 Pre-Reg r Nephrology 27 leonard davis 2018-11-14 2018-11-14 [place] [id number] Memoria 18:40:00 18:40:00 Pre-Reg r Nephrology 24 leonard davis 2018-11-14 2018-11-14 [place] [id number] Memoria 18:40:00 18:40:00 Pre-Reg r Nephrology 24 leonard davis 2018-11-14 2018-11-14 Outpatient [facility] IE [id number] Memoria 14:30:00 14:30:00 27 leonard Barrios 2018-11-14 2018-11-14 Outpatient [place]- MG MG [id number] 14:30:00 14:30:00 Cordell Toledo 2018-11-14 2018-11-14 Outpatient [place]- [facility] MG [id number] 14:30:00 14:30:00 Cordell Toledo 2018-11-14 2018-11-14 Outpatient [facility] IE [id number] Memoria 12:40:00 12:40:00 24 leonard Denis 2018-11-14 2018-11-14 Outpatient [place]- [facility] [id number] 12:40:00 12:40:00 Yesi Toledo 2018-11-14 2018-11-14 Outpatient [facility] [id number] 12:40:00 12:40:00 Yesi Toledo 2018-11-07 2018-11-07 Ambulatory nullFlavo [facility] [id number] Memoria 15:30:00 15:30:00 Pre-Reg r Internal 25 [facility] 2018-11-07 2018-11-07 [place] [id number] Memoria 15:30:00 15:30:00 Pre-Reg r Internal 25 [facility] 2018-11-07 2018-11-07 [facility] [id number] Memoria 09:30:00 09:30:00 25 [facility] 2018-11-07 2018-11-07 Outpatient [facility] [id number] 09:30:00 09:30:00 25 2018-07-11 2018-08-10 Ambulatory nullFlavo [facility] [id number] Memoria 12:45:00 12:45:00 Pre-Reg r Internal 23 [facility] 2018-07-11 2018-08-10 [place] [id number] Memoria 12:45:00 12:45:00 Pre-Reg r Internal 23 [facility] 2018-07-11 2018-08-10 Outpatient [facility] [id number] 07:45:00 07:45:00 23 2018-07-18 2018-07-19 [place] [id number] Memoria 19:15:00 04:59:59 r Nephrology 26 l Carrillo Zhang ryan 2018-07-18 2018-07-19 [place] [id number] Memoria 19:15:00 04:59:59 r Nephrology 26 l Carrillo Zhang ryan 2018-07-18 2018-07-19 [place] [id number] Memoria 18:00:00 04:59:59 r Nephrology 21 l Carrillo Zhang ryan 2018-07-18 2018-07-19 [place] [id number] Memoria 18:00:00 04:59:59 r Nephrology 21 l Carrillo Zhang ryan 2018-07-18 2018-07-18 Outpatient [facility] [id number] 14:15:00 23:59:59 DacKim pizarro Valarie Haris 2018-07-18 2018-07-18 Outpatient [place] [id number] 13:00:00 23:59:59 DacAkosua pizarro Valarie Carballo 2018-07-18 2018-07-18 Outpatient IE IE [id number] Memoria 14:15:00 14:15:00 26 leonard Denis 2018-07-18 2018-07-18 Outpatient MHIE IE [id number] Memoria 13:00:00 13:00:00 21 leonard Denis 2018-07-11 2018-07-11 Outpatient MHIE IE [id number] Memoria 07:45:00 07:45:00 23 leonard Denis 2018-06-11 2018-06-12 Outpatient nullFlavo [facility] 3 [id number] Memoria 18:30:00 04:59:59 r Medicine 20 leonard Zhang ryan 2018-06-11 2018-06-12 Outpatient nullFlavo MG Family 3 [id number] Memoria 18:30:00 04:59:59 r Medicine 20 l Carrillo Zhang ryan 2018-06-11 2018-06-11 Outpatient Rodriguez, MG MG [id number] 13:30:00 23:59:59 Antonella Davis 20 2018-06-11 2018-06-11 Outpatient IE IE [id number] Memoria 13:30:00 13:30:00 20 leonard Denis 2018-01-10 2018-01-11 [place] [id number] Memoria 16:00:00 04:59:59 r Nephrology 19 leonard Zhang n 2018-01-10 2018-01-11 [place] [id number] Memoria 16:00:00 04:59:59 r Nephrology 19 leonard Zhang ryan 2018-01-10 2018-01-10 [facility] [id number] 11:00:00 23:59:59 Ludivina Toledo 2018-01-10 2018-01-10 [id number] 11:00:00 23:59:59 Ludivina Toledo 2018-01-10 2018-01-10 Outpatient MHIE MHIE [id number] Memoria 11:00:00 11:00:00 19 leonard Denis 2018-01-09 2018-01-10 Outpatient nullFlavo [facility] Family 3 [id number] Memoria 15:00:00 04:59:59 r Medicine 18 l Carrillo Zhang n 2018-01-09 2018-01-10 Outpatient nullFlavo [facility] Family 3 [id number] Memoria 15:00:00 04:59:59 r Medicine 18 l Carrillo Zhang n 2018-01-09 2018-01-09 Outpatient Rodriguez, MHMG MHMG [id number] 10:00:00 23:59:59 Antonella N 18 2018-01-09 2018-01-09 Outpatient Rodriguez, MHMG MHMG [id number] 10:00:00 23:59:59 Antonella N 18 2018-01-09 2018-01-09 Outpatient MHIE MHIE [id number] Memoria 10:00:00 10:00:00 18 leonard Barrios 2017-07-19 2017-07-19 Outpatient MHIE MHIE [id number] Memoria 10:40:00 10:40:00 16 leonard Barrios 2017-07-19 2017-07-19 Outpatient MHIE MHIE [id number] Memoria 10:40:00 10:40:00 16 leonard Barrios 2017-06-27 2017-06-27 Outpatient MHIE MHIE [id number] Memoria 11:30:00 11:30:00 17 leonard Barrios 2017-06-27 2017-06-27 Outpatient MHIE MHIE [id number] Memoria 11:30:00 11:30:00 17 leonard Barrios 2017-03-01 2017-03-01 Outpatient MHIE MHIE [id number] Memoria 11:40:00 11:40:00 11 leonard Barrios 2017-03-01 2017-03-01 Outpatient MHIE MHIE [id number] Memoria 11:40:00 11:40:00 11 leonard Barrios 2016-12-26 2016-12-26 Outpatient MHIE MHIE [id number] Memoria 14:30:00 14:30:00 15 leonard Barrios 2016-12-26 2016-12-26 Outpatient MHIE MHIE [id number] Memoria 14:30:00 14:30:00 15 l Denis 2016-11-27 2016-11-27 Outpatient MHIE MHIE [id number] Memoria 10:00:00 10:00:00 08 leonard Barrios 2016-11-27 2016-11-27 Outpatient MHIE MHIE [id number] Memoria 10:00:00 10:00:00 08 leonard Barrios 2016-11-17 2016-11-17 Bedded nullFlavo [facility] [id number] Memoria 11:48:35 14:30:00 Outpatient r Denis 13 leonard Jones 2016-11-17 2016-11-17 Bedded nullFlavo [facility] [id number] Memoria 11:48:35 14:30:00 Outpatient connie RameyDenis 13 leonard Jones 2016-11-17 2016-11-17 Outpatient SmithADRIANSL MHSL [id number] 05:48:35 08:30:00 Reinaldo Ware 2016-11-09 2016-11-09 Outpatient MHIE MHIE [id number] Memoria 13:15:00 13:15:00 14 leonard Barrios 2016-11-09 2016-11-09 Outpatient MHIE MHIE [id number] Memoria 13:15:00 13:15:00 14 leonard Barrios 2016-10-18 2016-10-18 Outpatient MHIE MHIE [id number] Memoria 09:30:00 09:30:00 12 leonard Barrios 2016-10-18 2016-10-18 Outpatient MHIE MHIE [id number] Memoria 09:30:00 09:30:00 13 leonard Barrios 2016-10-18 2016-10-18 Outpatient MHIE MHIE [id number] Memoria 09:30:00 09:30:00 12 leonard Barrios 2016-10-18 2016-10-18 Outpatient MHIE MHIE [id number] Memoria 09:30:00 09:30:00 13 leonard Barrios 2016-10-12 2016-10-12 Outpatient MHIE MHIE [id number] Memoria 10:20:00 10:20:00 09 leonard Barrios 2016-10-12 2016-10-12 Outpatient MHIE MHIE [id number] Memoria 10:20:00 10:20:00 09 leonard Barrios 2016-07-13 2016-07-13 Outpatient MHIE MHIE [id number] Memoria 13:00:00 13:00:00 04 leonard Barrios 2016-07-13 2016-07-13 [facility] [id number] Memoria 13:00:00 13:00:00 04 leonard Barrios 2016-05-24 2016-05-24 [facility] [id number] Memoria 11:15:00 11:15:00 06 leonard Barrios 2016-05-24 2016-05-24 [facility] [id number] Memoria 11:15:00 11:15:00 06 leonard Barrios 2016-04-13 2016-05-13 OP Therapy nullFlavo SMR [id number] Memoria 13:00:00 04:59:00 Patients connie Stout 03 leonard Barrios 2016-04-13 2016-05-13 OP Therapy nullFlavo SMR [id number] Memoria 13:00:00 04:59:00 Patients connie Stout 03 leonard Barrios 2016-04-13 2016-05-12 Outpatient Johnson, 2.16.840. 2.16.840.1. 3 [id number] 08:00:00 23:59:00 Jose Francisco M [id number]. [id number] 3.615.55 5.55 2016-03-14 2016-04-13 OP Therapy nullFlavo SMR [id number] Memoria 17:39:00 04:59:00 Patients r Girish 02 leonard Barrios 2016-03-14 2016-04-13 OP Therapy nullFlavo SMR [id number] Memoria 17:39:00 04:59:00 Patients connie Stout 02 leonard Barrios 2016-03-14 2016-04-12 Outpatient Johnson, 2.16.840. 2.16.840.1. 3 [id number] 12:39:00 23:59:00 Jose Francisco M [id number]. [id number] 3.615.55 5.55 2016-03-09 2016-04-08 OP Therapy nullFlavo SMR Sugar [id number] Memoria 19:00:00 04:59:00 [place] leonard Barrios 2016-03-09 2016-04-08 OP Therapy nullFlavo SMR Sugar [id number] Memoria 19:00:00 04:59:00 Patients r [place] leonard Barrios 2016-03-09 2016-04-07 Outpatient Elizabeth, 2.16.840. 2.16.840.1. 3 [id number] 14:00:00 23:59:00 Jose Francisco Rai [id number]. [id number] 3.615.69 5.69 2016-03-13 2016-03-14 Outpt Diag nullFlavo [facility] [id number] Memoria 16:14:00 04:59:00 Services r Outpatient 04 l Imaging Denis [place] 2016-03-13 2016-03-14 Outpt Diag nullFlavo [facility] [id number] Memoria 16:14:00 04:59:00 Services r Outpatient 04 Imaging Denis [place] 2016-03-13 2016-03-13 [facility] [id number] 11:14:00 23:59:00 Jv [place] 2016-02-08 2016-03-09 OP Therapy nullFlavo SMR Sugar [id number] Memoria 19:00:00 04:59:00 Patients r [place] 00 leonard Denis 2016-02-08 2016-03-09 OP Therapy nullFlavo SMR Sugar [id number] Memoria 19:00:00 04:59:00 Patients r [place] 00 leonard Ralls 2016-02-08 2016-03-08 Outpatient Elizabeth, 2.16.840. 2.16.840.1. 3 [id number] 14:00:00 23:59:00 Jose Francisco M [id number]. [id number] 3.615.69 5.69 2016-03-02 2016-03-02 Outpatient IE IE [id number] Memoria 10:20:00 10:20:00 leonard Ralls 2016-03-02 2016-03-02 Outpatient IE IE [id number] Memoria 10:20:00 10:20:00 leonard Barrios 2016-02-29 2016-03-01 Outpt Diag nullFlavo [facility] [id number] Memoria 14:59:00 04:59:00 Services r Outpatient 03 l Imaging Denis Soto 2016-02-29 2016-03-01 Outpt Diag nullFlavo [facility] [id number] Memoria 14:59:00 04:59:00 Services r Outpatient 03 l Imaging Denis Soto 2016-02-29 2016-02-29 Outpatient Marsha Lazo [id number] 09:59:00 23:59:00 Atkins 2016-01-20 2016-01-21 Outpt Diag nullFlavo [facility] [id number] Memoria 18:11:00 04:59:00 Services r Outpatient 01 l Imaging Denis Mares 2016-01-20 2016-01-21 Outpt Diag nullFlavo [facility] [id number] Memoria 18:11:00 04:59:00 Services r Outpatient 01 l Imaging Denis Mares 2016-01-20 2016-01-20 Outpatient Marsha Lazo [id number] 13:11:00 23:59:00 Atkins 2015-12-30 2015-12-30 Outpatient nullFlavo [facility] [id number] Memoria 12:50:31 19:25:00 r l Denis 2015-12-30 2015-12-30 Outpatient 2.16.840. 2.16.840.1. 3 [id number] Memoria 12:50:31 19:25:00 [id number]. [id number] l 3.2081.20 81.2000 [facility] 2015-12-30 2015-12-30 Outpatient nullFlavo [facility] [id number] Memoria 12:50:31 19:25:00 r l Denis 2015-11-30 2015-12-01 Outpt Diag nullFlavo [facility] [id number] Memoria 12:58:00 05:59:00 Services r Outpatient 00 l Imaging Denis Mares 2015-11-30 2015-12-01 Outpt Diag nullFlavo [facility] [id number] Memoria 12:58:00 05:59:00 Services r Outpatient 00 l Imaging Denis Mares 2015-11-30 2015-11-30 Outpatient Marsha Lazo [id number] 06:58:00 23:59:00 Atkins 2015-11-19 2015-11-19 Outpatient [facility] [id number] Memoria 10:15:00 10:15:00 02 l Denis 2015-11-19 2015-11-19 Outpatient [facility] [id number] Memoria 10:15:00 10:15:00 02 l Ralls 2015-09-02 2015-09-02 Outpatient [facility] [id number] Memoria 11:30:00 11:30:00 00 l Ralls 2015-09-02 2015-09-02 Outpatient [facility] [id number] Memoria 11:30:00 11:30:00 00 l Ralls 2013-12-18 2013-12-18 Outpatient nullFlavo [place] [id number] Memoria 01:16:00 05:59:00 r Ralls [id number] Deloit 1 [facility] 2013-12-18 2013-12-18 Outpatient nullFlavo [facility] [id number] Memoria 01:16:00 05:59:00 r Denis [id number] Deloit 1 [facility] 2013-12-17 2013-12-17 Outpatient [facility] 2.16.840. 2.16.840. 1. [id number] 19:16:00 23:59:00 , Yusef 1.411019. [id number] Bernadette 3.615.0.1 5.0.609 92 9749-02-26 2013-12-17 Outpatient nullFlavo [id number] Memoria 19:16:00 19:16:00 r [place] 01 l Ralls 2013-12-17 2013-12-17 Outpatient nullFlavo [id number] Memoria 19:16:00 19:16:00 r [place] 01 l Ralls 2013-12-02 2013-12-02 Outpatient nullFlavo [id number] Memoria 19:43:00 19:43:00 r [place] 00 l Ralls 2013-12-02 2013-12-02 Outpatient nullFlavo [id number] Memoria 19:43:00 19:43:00 r [place] 00 l Denis Results Test Description Test Time Test Comments Results Result Comments Source SARS-CoV-2 (COVID-19) RNA [Presence] in Respiratory sp ecimen by 2022-06-24 19:34:22 DANIEL with probe detection Test Item Value Reference Range Interpretation Comme nts SARS-CoV-2 (COVID-19) RNA [Presence] in Respiratory specimen by DANIEL Detected with probe detection (test code = 93297-1) Whether patient is employed in a healthcare setting (test code = Un known 80045-8) Whether the patient has symptoms related to condition of interest U nknown (test code = 13568-5) Whether the patient was hospitalized for condition of interest (dayton t Unknown code = 85956-8) Whether the patient was admitted to intensive care unit (ICU) for U nknown condition of interest (test code = 93120-7) Whether patient resides in a congregate care setting (test code = U nknown 25038-5) status (test code = 50356-1) Unknown Date and time of symptom onset (test code = 56257-2) Unknown BASIC METABOLIC [id number] 16:39:00 Test Item Value Reference Range Interpretation Comments SODIUM (test code = NA) 138 mEq/L 134-147 N POTASSIUM (test code = 3.7 mEq/L 3.4-5.0 N K) CHLORIDE (test code = 100 mEq/L 100-108 N CL) CARBON DIOXIDE (test 28 mEq/l 21-33 N code = CO2) ANION GAP (test code = 13 0-20 N GAP) GLUCOSE (test code = 77 mg/dL 70-110 N GLU) BLOOD UREA NITROGEN 13 mg/dL 7-18 N (test code = BUN) GLOMERULAR FILTRATION 11.6 80-90 L Units of measure = RATE (test code = GFR) ml/mi n/1.73 m2 CREATININE (test code = 3.9 mg/dL 0.6-1.3 H CREAT) CALCIUM (test code = 8.8 mg/dL 8.0-10.5 N CA) PROTHROMBIN [id number] 16:33:00 Test Item Value Reference Range Interpretation Comments PROTHROMBIN TIME 13.1 SECONDS 9.3-12.9 H PATIENT (test code = PTP) INTERNATIONAL NORMAL 1.2 0.8-1.2 N TARGET INR BY RATIO (test code = INDICATIO N Indication INR) INR1. Prophylax is of venous thrombos is 2.0 - 3.0 (orthoped ic surgery), Proph ylaxis of venous throm bosis (other than hig h-risk surgery), Treat ment of Deep Vein Thrombosis/Pulm onary Embolism, Preve ntion of systemic emb olism - Tissue heart va lves, Acute Myocardia l Infarction (to prevent systemic emboli sm), Valvular heart disease, Atrial Fibrillation, Bileaflet mecha nical valve in aortic position.2. Mec hanical prosthetic valv es (high risk), 2. 5 - 3.5 Presence of Lup us Anticoagulant o r Antiphospholipi d Antibodies, Pre vention of systemic emb olism - Acute Myocardia l Infarction (to prevent recurrent infar ct). CBC W/AUTO [id number] 16:23:00 Test Item Value Reference Range Interpretation Comments WHITE BLOOD CELL (test code = 9.2 x10 3/uL 4.5-11.0 N WBC) RED BLOOD CELL (test code = 3.17 x10 6/uL 3.54-5.02 L RBC) HEMOGLOBIN (test code = HGB) 10.3 g/dL 11.0-15.0 L HEMATOCRIT (test code = HCT) 33.2 % 33.0-45.0 N MEAN CELL VOLUME (test code = 104.7 fL 81.0-99.0 H MCV) MEAN CELL HGB (test code = MCH) 32.5 pg 27.0-33.0 N MEAN CELL HGB CONCETRATION 31.0 g/dL 33.0-37.0 L (test code = MCHC) RED CELL DISTRIBUTION WIDTH CV 14.5 % 11.5-14.5 N (test code = RDW) RED CELL DISTRIBUTION WIDTH SD 56.6 fL 37.0-54.0 H (test code = RDW-SD) PLATELET COUNT (test code = 108 x10 3/uL 150-400 L PLT) MEAN PLATELET VOLUME (test code 10.2 fL 7.0-9.0 H = MPV) NEUTROPHIL % (test code = NT%) 80.2 % 56.0-77.0 H IMMATURE GRANULOCYTE % (test 1.4 % 0.0-2.0 N code = IG%) LYMPHOCYTE % (test code = LY%) 11.0 % 14.0-32.0 L MONOCYTE % (test code = MO%) 5.2 % 4.8-9.0 N EOSINOPHIL % (test code = EO%) 1.5 % 0.3-3.7 N BASOPHIL % (test code = BA%) 0.7 % 0.0-2.0 N NUCLEATED RBC % (test code = 0.0 % 0-0 N NRBC%) NEUTROPHIL # (test code = NT#) 7.34 x10 3/uL 2.0-7.6 N IMMATURE GRANULOCYTE # (test 0.13 x10 3/uL 0.00-0.03 H code = IG#) LYMPHOCYTE # (test code = LY#) 1.01 x10 3/uL 1.0-3.8 N MONOCYTE # (test code = MO#) 0.48 x10 3/uL 0.1-0.8 N EOSINOPHIL # (test code = EO#) 0.14 x10 3/uL 0.0-0.2 N BASOPHIL # (test code = BA#) 0.06 x10 3/uL 0.0-0.2 N NUCLEATED RBC # (test code = 0.00 x10 3/uL 0.0-0.1 N NRBC#) MANUAL DIFF REQUIRED (test code NO = MDIFF) HEPATITIS B SURFACE [id number] 21:36:32 Test Item Value Reference Range Interpretation Comments HEPATITIS B SURFACE ANTIBODY < mIU/mL <8.0 (BEAKER) (test code = 647) Semiconductor Technician ID - DBHEPATITIS B SURFACE [id number] 21:24:22 Test Item Value Reference Range Interpretation Comments HEPATITIS B SURFACE ANTIGEN (2) Nonreactive Nonreactive (BEAKER) (test code = 2585) Specimen is considered negative for HBsAg.SARS-CoV-2 (COVID-19) RNA [Presence] in Respiratory specimen by DANIEL with probe [id number] 00:41:02 Test Item Value Reference Range Interpretation Comments SARS-CoV-2 (COVID-19) RNA Not detected [Presence] in Respiratory specimen by DANIEL with probe detection (test code = 38072-3) Whether patient is employed in a Unknown healthcare setting (test code = 17437-3) Whether the patient has symptoms Unknown related to condition of interest (test code = 88147-0) Whether the patient was Unknown hospitalized for condition of interest (test code = 87093-7) Whether the patient was admitted Unknown to intensive care unit (ICU) for condition of interest (test code = 18876-3) Whether patient resides in a Unknown congregate care setting (test code = 26265-3) status (test code = Unknown 13755-0) Date and time of symptom onset Unknown (test code = 39851-3) - XR [id number] 10:28:00 [facility] 1955 Sex: F Name: FREDDIE SAUCEDO [facility] : 1955 Age/S: 66 / F [id number] [place] Unit #: [id number] Loc: [place] [address] Phys: Mic Aiken MD Acct: [id number] Dis Date: Status: [facility] PHONE #: [phone] Exam Date: 03/08/2022 0950 FAX #: Reason: ERCP EXAMS: CPT: [id number] XR ERCP 25159 Fluoro Time: 33 SEC DAP (Gy m2): Air Kerma (mGy): EXAMINATION: - XR ERCP. LOCATION: S17. HISTORY: ERCP, CBDobstruction. COMPARISON: None. FINDINGS/ IMPRESSION: Nine portable limited intraoperative fluoroscopic images of right upper quadrant during ERCP are submitted to radiology department. Initial image demonstrates CBD stent and postoperative clips in upper abdomen. Subsequent images demonstrate contrastopacification of CBD and small bowel. Please see operative report for further details. No radiologist was present during procedure. FLUOROSCOPIC TIME: 35.6 seconds. Reference air Kerma: 11.146 mGy. at 1028 Reported and signedby: Ru Hernandez M.D. CC: Mic Aiken MD; Antonella Rodriguez MD PAGE 1 Signed Report Name: FREDDIE SAUCEDO : 1955 Age/S: 66 / F [id number] [place] Unit #: [id number] Loc:[place] [address] Phys: Mic Aiken MD Acct: [id number] Dis Date: [place] [facility] [place]: [phone] Exam Date: 03/08/2022 0992 FAX #: Reason: ERCP EXAMS: CPT: [id number] XR ERCP 20774 Fluoro Time: 33 SEC DAP (Gy m2): Air Kerma (mGy): (Continued) Technologist: Naila Davis, RT(R) Trnscb Date/Time: 03/08/2022 (4079) [id number] Orig Print D/T: S: 03/08/2022 (6041) PAGE 2 Signed Report [id number] 08:51:00 Test Item Value Reference Range Interpretation Comments POTASSIUM (test code = K) 5.1 mmol/L 3.4-5.0 H CBC W/AUTO [id number] 08:15:00 Test Item Value Reference Range Interpretation Comments WHITE BLOOD CELL (test code = 9.2 K/mm3 3.5-11.0 N WBC) RED BLOOD CELL (test code = 3.76 M/mm3 4.70-6.10 L RBC) HEMOGLOBIN (test code = HGB) 11.8 G/DL 10.4-14.9 N HEMATOCRIT (test code = HCT) 37.7 % 31.5-44.1 N MEAN CELL VOLUME (test code = 100.3 Fl 84.5-98.6 H MCV) MEAN CELL HGB (test code = MCH) 31.4 pg 27.0-34.2 N MEAN CELL HGB CONCETRATION 31.3 G/DL 31.5-34.0 L (test code = MCHC) RED CELL DISTRIBUTION WIDTH 13.2 SD 11.5-14.5 N (test code = RDW) PLATELET COUNT (test code = 136 K/mm3 150-450 L PLT) MEAN PLATELET VOLUME (test code 9.80 fL 7.0-10.5 N = MPV) NEUTROPHIL % (test code = NT%) 71.9 % 40-76 N IMMATURE GRANULOCYTE % (test 0.9 % 0.0-5.0 N code = IG%) LYMPHOCYTE % (test code = LY%) 18.1 % 20.5-51.1 L MONOCYTE % (test code = MO%) 6.8 % 1.7-9.3 N EOSINOPHIL % (test code = EO%) 1.5 % 0.0-6.0 N BASOPHIL % (test code = BA%) 0.8 % 0.0-2.0 N NUCLEATED RBC % (test code = 0.0 /100WBC% 0.0-1.0 N NRBC%) NEUTROPHIL # (test code = NT#) 6.7 K/mm3 1.8-7.6 N IMMATURE GRANULOCYTE # (test 0.08 x10 3/uL 0.00-0.03 H code = IG#) LYMPHOCYTE # (test code = LY#) 1.7 K/mm3 0.6-3.2 N MONOCYTE # (test code = MO#) 0.6 K/mm3 0.3-1.1 N EOSINOPHIL # (test code = EO#) 0.1 K/mm3 0.0-0.4 N BASOPHIL # (test code = BA#) 0.1 K/mm3 0.0-0.1 N NUCLEATED RBC # (test code = 0.0 K/mm3 0.0-0.1 N NRBC#) MANUAL DIFF REQUIRED (test code NO DIFF/SCN CRITERIA = MDIFF) BASIC METABOLIC [id number] 08:08:00 Test Item Value Reference Range Interpretation Comments SODIUM (test code = NA) 135 mmol/L 134-147 N POTASSIUM (test code = K) 5.9 mmol/L 3.4-5.0 HH CHLORIDE (test code = CL) 103 mmol/L 100-108 N CARBON DIOXIDE (test code = CO2) 27 mmol/L 21-32 N ANION GAP (test code = GAP) 5.0 GAP calc 4.0-15.0 N GLUCOSE (test code = GLU) 109 MG/DL 70-110 N BLOOD UREA NITROGEN (test code = 43 MG/DL 7-18 H BUN) GLOMERULAR FILTRATION RATE (test 4 estGFR >60 L code = GFR) CREATININE (test code = CREAT) 10.5 MG/DL 0.6-1.0 H CALCIUM (test code = CA) 9.9 MG/DL 8.5-10.1 N COVID 19 INHOUSE [id number] 14:11:00 Test Item Value Reference Range Interpretation Comments COVID 19 INHOUSE AG NEGATIVE Negative Per marshal facturer, (test code = negative result s should [id number]) be treated aspr esumptive and, if inconsi stent with clinical signs andsymptoms or necessary for patient man agement, should betested with an alternative mol ecular assay. Negative resultsdo not preclude SA RS-CoV-2 infection and s hould not be usedas the s ole basis for patient man agement decisions. Nega tive results should be considered in t he context of apatient's r ecent exposures, hist ory, presence of cli nicalsigns and symptoms co nsistent with COVID-19. CBC W/AUTO [id number] 14:00:00 Test Item Value Reference Range Interpretation Comments WHITE BLOOD CELL 7.2 K/mm3 3.5-11.0 N (test code = WBC) RED BLOOD CELL (test 4.01 M/mm3 4.70-6.10 L code = RBC) HEMOGLOBIN (test code 12.6 G/DL 10.4-14.9 N = HGB) HEMATOCRIT (test code 39.7 % 31.5-44.1 N = HCT) MEAN CELL VOLUME 99.0 Fl 84.5-98.6 H (test code = MCV) MEAN CELL HGB (test 31.4 pg 27.0-34.2 N code = MCH) MEAN CELL HGB 31.7 G/DL 31.5-34.0 N CONCETRATION (test code = MCHC) RED CELL DISTRIBUTION 13.3 SD 11.5-14.5 N WIDTH (test code = RDW) PLATELET COUNT (test 106 K/mm3 150-450 L code = PLT) MEAN PLATELET VOLUME 10.20 fL 7.0-10.5 N (test code = MPV) NEUTROPHIL % (test 72.0 % 40-76 N code = NT%) IMMATURE GRANULOCYTE 0.7 % 0.0-5.0 N % (test code = IG%) LYMPHOCYTE % (test 17.8 % 20.5-51.1 L code = LY%) MONOCYTE % (test code 7.4 % 1.7-9.3 N = MO%) EOSINOPHIL % (test 1.4 % 0.0-6.0 N code = EO%) BASOPHIL % (test code 0.7 % 0.0-2.0 N = BA%) NUCLEATED RBC % (test 0.0 /100WBC% 0.0-1.0 N code = NRBC%) NEUTROPHIL # (test 5.2 K/mm3 1.8-7.6 N code = NT#) IMMATURE GRANULOCYTE 0.05 x10 3/uL 0.00-0.03 H # (test code = IG#) LYMPHOCYTE # (test 1.3 K/mm3 0.6-3.2 N code = LY#) MONOCYTE # (test code 0.5 K/mm3 0.3-1.1 N = MO#) EOSINOPHIL # (test 0.1 K/mm3 0.0-0.4 N code = EO#) BASOPHIL # (test code 0.1 K/mm3 0.0-0.1 N = BA#) NUCLEATED RBC # (test 0.0 K/mm3 0.0-0.1 N code = NRBC#) MANUAL DIFF REQUIRED NO DIFF/SCN CRITERIA SLIDE R NESHAW (test code = MDIFF) CONSISTA NT WITH AUTO DIFFERENTI AL. BASIC METABOLIC [id number] 13:32:00 Test Item Value Reference Range Interpretation Comments SODIUM (test code = NA) 136 mmol/L 134-147 N POTASSIUM (test code = K) 5.1 mmol/L 3.4-5.0 H CHLORIDE (test code = CL) 103 mmol/L 100-108 N CARBON DIOXIDE (test code = CO2) 26 mmol/L 21-32 N ANION GAP (test code = GAP) 7.0 GAP calc 4.0-15.0 N GLUCOSE (test code = GLU) 103 MG/DL 70-110 N BLOOD UREA NITROGEN (test code = 37 MG/DL 7-18 H BUN) GLOMERULAR FILTRATION RATE (test 6 estGFR >60 L code = GFR) CREATININE (test code = CREAT) 7.4 MG/DL 0.6-1.0 H CALCIUM (test code = CA) 10.1 MG/DL 8.5-10.1 N HEPATIC FUNCTION [id number] 13:32:00 Test Item Value Reference Range Interpretation Comments TOTAL PROTEIN (test code = PROT) 7.7 G/DL 6.4-8.2 N ALBUMIN (test code = ALB) 3.4 G/DL 3.4-5.0 N BILIRUBIN TOTAL (test code = BILT) 2.10 MG/DL 0.2-1.2 H BILIRUBIN DIRECT (test code = 0.50 MG/DL 0.00-0.30 H BILD) BILIRUBIN INDIRECT (test code = 1.60 MG/DL 0.2-1.2 H BILIND) SGOT/AST (test code = AST) 17 Unit/L 15-37 N SGPT/ALT (test code = ALT) 27 Unit/L 12-78 N ALKALINE PHOSPHATASE TOTAL (test 222 Unit/L 45-117 H code = ALKP) [id number] 13:32:00 Test Item Value Reference Range Interpretation Comments LIPASE (test code = LIP) 109 Unit/L 114-286 L [id number] 18:01:00 Test Item Value Reference Range Interpretation Comments SURGICAL (test code = SR) RUN DATE: 03/01/22 [facility] PAGE 1 RUN TIME: 1801 Specimen Inquiry RUN USER: INTERFACE LIANNA ENT: FREDDIE SAUCEDO LOC: [facility] U #: [id number] AGE/SX: 66/F ROOM: RE02/27/22REG DR: Adam King MD : 57 BED: DIS: STATUS: [place] [facility] [place] SPEC #: [id number] RECD: 02/27/22 STATUS: YULIA PILLAI #: [id number] LUZ: 02/27/22 [facility] DR: Adam King MD ENTERED: 02/27/22 SP TYPE: SURGICAL OTHR DR: Antonella Rodriguez MD ORDERED: 77601/2, 65955, 21079, 93896, ANATOMIC SPEC, SPECIMEN TRACK COPIES TO: Antonella Rodriguez MD [address] [place] [address] Adam King MD [address] [place] [address] PROCEDURES: [id number] (02/27/22) 15230 (03/01/22) 70320 (03/01/22) 39650 (03/01/22) SPECIMEN TRACK (02/27/22) TISSUES: A. GASTRIC MUCOSA - BX ANTRUM AND BODY B. ESOPHAGUS BIOPSY - DISTAI ESOPHAGUS BX FINAL DIAGNOSIS A. Stomach, antrum and body, endoscopic biopsy:- Healing/reparative/chemical gastropathy changes, minimal to mild- Negative for intestinal metaplasia- Negative for Helicobacter pylori (Immunohistochemistry stain) B. Esophagus, distal, endoscopic biopsy:- Reflux esophagitis, mild- Negative for glandular epithelium/intestinal metaplasia/dysplasia (Alcian Blue stain)- Negative for fungal organisms (PAS stain) Comment: Suggest clinical correlation. Note: For each marker stain tested above: Positive control is positive and Negative(external or internal) control is negative (staining performed at [facility]). CONTINUED ON NEXT PAGE RUN DATE: 03/01/22 [facility] - LAB PAGE 2 RUN TIME: 1801 Specimen Inquiry RUN USER: INTERFACE SPEC #: [id number] PATIENT: FREDDIE SAUCEDO #[id number] (Continued) ------- GROSS DESCRIPTION A. Antrum and body biopsy. It consists of 4 tissue fragments measuring 2-5 mm. All as A1. B. Distal esophageal biopsy. It consists of 2 tissue fragments measuring 3 mm each. Allas B1. Technical component performed at [facility],[id number] , [place] [address] Unless gross only, the diagnosis is based upon microscopic examination.Immunohistochemistry : This test was developed and its performancecharacteristics determined by this laboratory. It has not been approved nordoes it need approval by the [place] FDA. Appropriate positive and negative controlsare reviewed and judged to be acceptable. This laboratory is certified underthe Clinical Laboratory Improvement Amendments (CLIA-88) as qualified toperform high complexity clinical laboratory testing. MICROSCOPIC DESCRIPTION Findings are incorporated into the diagnosis section. ---- Signed SIGNATURE ON Obdulio Hart 03/01/22 180 END OF REPORT BASIC METABOLIC [id number] 08:13:00 Test Item Value Reference Range Interpretation Comments SODIUM (test code = NA) 137 mmol/L 134-147 N POTASSIUM (test code = K) 4.2 mmol/L 3.4-5.0 N CHLORIDE (test code = CL) 105 mmol/L 100-108 N CARBON DIOXIDE (test code = CO2) 23 mmol/L 21-32 N ANION GAP (test code = GAP) 9.0 GAP calc 4.0-15.0 N GLUCOSE (test code = GLU) 111 MG/DL 70-110 H BLOOD UREA NITROGEN (test code = 41 MG/DL 7-18 H BUN) GLOMERULAR FILTRATION RATE (test 5 estGFR >60 L code = GFR) CREATININE (test code = CREAT) 8.6 MG/DL 0.6-1.0 H CALCIUM (test code = CA) 9.8 MG/DL 8.5-10.1 N - XR CHEST 2 [id number] 13:28:00 [facility] 1955 Sex: F Name: FREDDIE SAUCEDO [place] : 1955 Age/S: 66 / F [address] Unit #: [id number] Loc: [place] [address] Phys: Adam King MD Acct: [id number] Dis Date: Status: PRE NEC PHONE #: [phone] Exam Date: 02/24/2022 1253 FAX #: Reason: PRE OP EXAMS: CPT: [id number] XR CHEST 2 [id number] Fluoro Time: DAP (Gy m2): Air Kerma (mGy): Chest 2 views 02/24/2022 1:27 PM CLINICAL HISTORY: Preop COMPARISON: None available LOCATION: W1 IMPRESSION: There is elevation of the right hemidiaphragm. Bibasilar opacities suggest atelectasis. Pneumonia should be excluded clinically. Cardiomediastinal contours are within normal limits. The central vasculature is not engorged. A tunneled left hemodialysis catheter is present. There are chronic appearing degenerative changes in the skeleton. at 1328 Reported and signed by: Kristian Sidhu M.D. CC: Antonella Rodriguez MD; Adam King MD PAGE 1 Signed Report Name: FREDDIE SAUCEDO [place] : 1955 Age/S: 66 / F [address] Unit #: [id number] Loc: [place] [address] Phys: Adam Knig MD Acct: [id number] Dis Date: Status: PRE [facility] [place] #: [phone] Exam Date: 02/24/2022 1253 FAX #: Reason: PRE OP EXAMS: CPT: [id number] XR CHEST 2 V 79464 Fluoro Time: DAP (Gy m2): Air Kerma (mGy): (Continued) Technologist: Priya Lemos RT (R)(CT) Trnscb Date/Time: 02/24/2022 (2895) [email or web address] Orig Print D/T: S: 02/24/2022 (7647) PAGE 2 Signed ReportBASIC METABOLIC [id number] 12:55:00 Test Item Value Reference Range Interpretation Comments SODIUM (test code = NA) 134 mmol/L 134-147 N POTASSIUM (test code = K) 4.6 mmol/L 3.4-5.0 N CHLORIDE (test code = CL) 100 mmol/L 100-108 N CARBON DIOXIDE (test code = CO2) 28 mmol/L 21-32 N ANION GAP (test code = GAP) 6.0 GAP calc 4.0-15.0 N GLUCOSE (test code = GLU) 113 MG/DL 70-110 H BLOOD UREA NITROGEN (test code = 38 MG/DL 7-18 H BUN) GLOMERULAR FILTRATION RATE (test 6 estGFR >60 L code = GFR) CREATININE (test code = CREAT) 7.0 MG/DL 0.6-1.0 H CALCIUM (test code = CA) 10.5 MG/DL 8.5-10.1 H COVID 19 INHOUSE [id number] 12:52:00 Test Item Value Reference Range Interpretation Comments COVID 19 INHOUSE AG NEGATIVE Negative Per marshal facthelenar, (test code = negative result s should [id number]) be treated aspr esumptive and, if inconsi stent with clinical signs andsymptoms or necessary for patient man agement, should betested with an alternative mol ecular assay. Negative resultsdo not preclude SA RS-CoV-2 infection and s hould not be usedas the s ole basis for patient man agement decisions. Nega tive results should be considered in t he context of apatient's r ecent exposures, hist ory, presence of cli nicalsigns and symptoms co nsistent with COVID-19. PROTHROMBIN [id number] 12:44:00 Test Item Value Reference Range Interpretation Comments PT PATIENT (test 12.2 SECONDS 9.3-12.9 N code = PTP) INTERNATIONAL NORMAL 1.07 INR Unit 0.8-1.2 N TARGE T INR BY RATIO (test code = INDICATIO N Indication INR) INR1. Prophylax is of venous thrombos is 2.0 - 3.0 (orthoped ic surgery), Proph ylaxis of venous throm bosis (other than hig h-risk surgery), Treat ment of Deep Vein Thrombosis/Pulm onary Embolism, Preve ntion of systemic emb olism - Tissue heart va lves, Acute Myocardia l Infarction (to prevent systemic emboli sm), Valvular heart disease, Acute Myocardial Infa rction (to prevent sys temic embolism), Valv ular heart disease, Atrial Fibrillation, Bileaflet mecha nical valve in aortic position.2. Mec hanical prosthetic valv es (high risk), 2. 5 - 3.5 Presence of Lup us Anticoagulant o r Antiphospholipi d Antibodies, Pre vention of systemic emb olism - Acute Myocardia l Infarction (to prevent recurrent infar ct). THROMBOPLASTIN TIME [id number] 12:44:00 Test Item Value Reference Range Interpretation Comments THROMBOPLASTIN TIME PARTIAL 36.2 SECONDS 26-35 H (test code = PTT) CBC W/AUTO [id number] 12:43:00 Test Item Value Reference Range Interpretation Comments WHITE BLOOD CELL (test code = 9.1 K/mm3 3.5-11.0 N WBC) RED BLOOD CELL (test code = 4.16 M/mm3 4.70-6.10 L RBC) HEMOGLOBIN (test code = HGB) 13.1 G/DL 10.4-14.9 N HEMATOCRIT (test code = HCT) 41.8 % 31.5-44.1 N MEAN CELL VOLUME (test code = 100.5 Fl 84.5-98.6 H MCV) MEAN CELL HGB (test code = MCH) 31.5 pg 27.0-34.2 N MEAN CELL HGB CONCETRATION 31.3 G/DL 31.5-34.0 L (test code = MCHC) RED CELL DISTRIBUTION WIDTH 13.8 SD 11.5-14.5 N (test code = RDW) PLATELET COUNT (test code = 140 K/mm3 150-450 L PLT) MEAN PLATELET VOLUME (test code 10.20 fL 7.0-10.5 N = MPV) NEUTROPHIL % (test code = NT%) 71.8 % 40-76 N IMMATURE GRANULOCYTE % (test 1.3 % 0.0-5.0 N code = IG%) LYMPHOCYTE % (test code = LY%) 18.2 % 20.5-51.1 L MONOCYTE % (test code = MO%) 6.7 % 1.7-9.3 N EOSINOPHIL % (test code = EO%) 1.3 % 0.0-6.0 N BASOPHIL % (test code = BA%) 0.7 % 0.0-2.0 N NUCLEATED RBC % (test code = 0.0 /100WBC% 0.0-1.0 N NRBC%) NEUTROPHIL # (test code = NT#) 6.5 K/mm3 1.8-7.6 N IMMATURE GRANULOCYTE # (test 0.12 x10 3/uL 0.00-0.03 H code = IG#) LYMPHOCYTE # (test code = LY#) 1.7 K/mm3 0.6-3.2 N MONOCYTE # (test code = MO#) 0.6 K/mm3 0.3-1.1 N EOSINOPHIL # (test code = EO#) 0.1 K/mm3 0.0-0.4 N BASOPHIL # (test code = BA#) 0.1 K/mm3 0.0-0.1 N NUCLEATED RBC # (test code = 0.0 K/mm3 0.0-0.1 N NRBC#) MANUAL DIFF REQUIRED (test code NO DIFF/SCN CRITERIA = MDIFF) SARS-CoV-2 (COVID-19) RNA [Presence] in Respiratory specimen by DANIEL with probe [id number] 23:10:10 Test Item Value Reference Range Interpretation Comments SARS coronavirus RNA [Presence] Not detected in Isolate by DANIEL with probe detection (test code = 43894-4) Whether patient is employed in a No healthcare setting (test code = 85790-7) Whether the patient has symptoms Yes related to condition of interest (test code = 26265-4) Whether the patient was No hospitalized for condition of interest (test code = 84448-7) Whether the patient was admitted No to intensive care unit (ICU) for condition of interest (test code = 61836-9) Whether patient resides in a No congregate care setting (test code = 42957-8) status (test code = No 00748-2) Date and time of symptom onset Unknown (test code = 28649-1) SARS-CoV-2 (COVID-19) RNA [Presence] in Respiratory specimen by DANIEL with probe [id number] 23:10:10 Test Item Value Reference Range Interpretation Comments SARS-CoV-2 (COVID-19) RNA Not detected [Presence] in Respiratory specimen by DANIEL with probe detection (test code = 42822-1) Whether patient is employed in a No healthcare setting (test code = 20124-2) Whether the patient has symptoms Yes related to condition of interest (test code = 55024-6) Whether the patient was No hospitalized for condition of interest (test code = 13746-0) Whether the patient was admitted No to intensive care unit (ICU) for condition of interest (test code = 84894-0) Whether patient resides in a No congregate care setting (test code = 63031-8) status (test code = No 35306-6) Date and time of symptom onset Unknown (test code = 83646-3) SARS-CoV-2 (COVID-19) RNA [Presence] in Respiratory specimen by DANIEL with probe [id number] 22:34:30 Test Item Value Reference Range Interpretation Comments SARS-CoV-2 (COVID-19) RNA Not detected Not-Detected [Presence] in Respiratory specimen by DANIEL with probe detection (test code = 33799-0) Whether patient is employed in a healthcare setting (test code = 15057-9) Whether the patient has symptoms related to condition of interest (test code = 24827-5) Patient was hospitalized because of this condition (test code = 95615-1) Whether the patient was admitted to intensive care unit (ICU) for condition of interest (test code = 89283-6) Whether patient resides in a congregate care setting (test code = 81336-7) SARS-CoV-2 (COVID-19) RNA [Presence] in Respiratory specimen by DANIEL with probe [id number] 22:35:42 Test Item Value Reference Range Interpretation Comments SARS-CoV-2 (COVID-19) RNA Not detected Not-Detected [Presence] in Respiratory specimen by DANIEL with probe detection (test code = 29668-0) Whether patient is employed in a healthcare setting (test code = 64251-7) Whether the patient has symptoms related to condition of interest (test code = 94791-8) Patient was hospitalized because of this condition (test code = 35155-5) Whether the patient was admitted to intensive care unit (ICU) for condition of interest (test code = 40653-3) Whether patient resides in a congregate care setting (test code = 77546-9) SARS-CoV-2 (COVID-19) RNA [Presence] in Respiratory specimen by DANIEL with probe [id number] 22:46:10 Test Item Value Reference Range Interpretation Comments SARS-CoV-2 (COVID-19) RNA Not detected Not-Detected [Presence] in Respiratory specimen by DANIEL with probe detection (test code = 63201-1) Whether patient is employed in a healthcare setting (test code = 63567-7) Whether the patient has symptoms related to condition of interest (test code = 05081-8) Patient was hospitalized because of this condition (test code = 32690-1) Whether the patient was admitted to intensive care unit (ICU) for condition of interest (test code = 82565-8) Whether patient resides in a congregate care setting (test code = 96910-4) SARS-CoV-2 (COVID-19) RNA [Presence] in Respiratory specimen by DANIEL with probe pjlkvxciu7757-82-57 01:54:24 Test Item Value Reference Range Interpretation Comments SARS-CoV-2 (COVID-19) RNA Not detected Not-Detected [Presence] in Respiratory specimen by DANIEL with probe detection (test code = 16610-7) Whether patient is employed in a healthcare setting (test code = 34879-1) Whether the patient has symptoms related to condition of interest (test code = 22854-3) Patient was hospitalized because of this condition (test code = 59849-3) Whether the patient was admitted to intensive care unit (ICU) for condition of interest (test code = 72206-0) Whether patient resides in a congregate care setting (test code = 40187-9) SARS-CoV-2 (COVID-19) RNA [Presence] in Respiratory specimen by DANIEL with probe gmeocjfei4736-81-14 21:44:06 Test Item Value Reference Range Interpretation Comments SARS-CoV-2 (COVID-19) RNA Not detected Not-Detected [Presence] in Respiratory specimen by DANIEL with probe detection (test code = 48340-1) Whether patient is employed in a healthcare setting (test code = 64765-3) Whether the patient has symptoms related to condition of interest (test code = 61240-9) Patient was hospitalized because of this condition (test code = 07613-9) Whether the patient was admitted to intensive care unit (ICU) for condition of interest (test code = 17064-3) Whether patient resides in a congregate care setting (test code = 47409-9) SARS-CoV-2 (COVID-19) RNA [Presence] in Respiratory specimen by DANIEL with probe [id number] 00:36:59 Test Item Value Reference Range Interpretation Comments SARS-CoV-2 (COVID-19) RNA Not detected Not-Detected [Presence] in Respiratory specimen by DANIEL with probe detection (test code = 84507-6) SARS-CoV-2 (COVID-19) RNA [Presence] in Respiratory specimen by DANIEL with probe dmuxetsmn2021-21-15 17:35:35 Test Item Value Reference Range Interpretation Comments SARS-CoV-2 (COVID-19) RNA Not detected Not-Detected [Presence] in Respiratory specimen by DANIEL with probe detection (test code = 69111-1) SARS-CoV-2 (COVID-19) RNA [Presence] in Respiratory specimen by DANIEL with probe ymoanptnw9474-05-25 18:03:30 Test Item Value Reference Range Interpretation Comments SARS-CoV-2 (COVID-19) RNA Not detected Not-Detected [Presence] in Respiratory specimen by DANIEL with probe detection (test code = 45285-6) SARS-CoV-2 (COVID-19) RNA [Presence] in Respiratory specimen by DANIEL with probe tkuakjady8988-18-39 10:06:03 Test Item Value Reference Range Interpretation Comments SARS-CoV-2 (COVID-19) RNA Not detected Not-Detected [Presence] in Respiratory specimen by DANIEL with probe detection (test code = 82306-8) SARS-CoV-2 (COVID-19) RNA [Presence] in Respiratory specimen by DANIEL with probe [id number] 05:11:58 Test Item Value Reference Range Interpretation Comments SARS-CoV-2 (COVID-19) RNA Not detected Not-Detected [Presence] in Respiratory specimen by DANIEL with probe detection (test code = 14100-1) SARS-CoV-2 (COVID-19) RNA [Presence] in Respiratory specimen by DANIEL with probe lzdfnpulz2729-80-04 03:34:16 Test Item Value Reference Range Interpretation Comments SARS-CoV-2 (COVID-19) RNA Not detected Not-Detected [Presence] in Respiratory specimen by DANIEL with probe detection (test code = 78686-4) SARS-CoV-2 (COVID-19) RNA [Presence] in Respiratory specimen by DANIEL with probe itutydwga6378-38-26 10:06:41 Test Item Value Reference Range Interpretation Comments SARS-CoV-2 (COVID-19) RNA Not detected Not-Detected [Presence] in Respiratory specimen by DANIEL with probe detection (test code = 43572-4) [id number] 12:33:00 Test Item Value Reference Range Interpretation Comments Chol (test code = Chol) 129 [facility] 12:33:00 Test Item Value Reference Range Interpretation Comments HDL (test code = HDL) 37 [facility]KileiyqWNQXRN8367-83-44 12:33:00 Test Item Value Reference Range Interpretation Comments Trig (test code = Trig) 76 [facility] CenterXffryqxALLUNR2232-30-49 12:33:00 Test Item Value Reference Range Interpretation Comments LDL (Calculated) (test code = LDL 76 (Calculated)) [facility]YxaepwyZIYSBP2596-75-85 12:33:00 Test Item Value Reference Range Interpretation Comments CHD Risk (test code = CHD Risk) 3.5 [facility]VtmkgwjYPUGIK7757-47-90 12:33:00 Test Item Value Reference Range Interpretation Comments Non HDL Chol (test code = Non HDL Chol) 92 [facility] CenterUeymayiHZHDSU9662-53-03 12:33:00 Test Item Value Reference Range Interpretation Comments Chol (test code = Chol) 129 [facility] CenterOdoiwcwMQUNPL3296-61-59 12:33:00 Test Item Value Reference Range Interpretation Comments HDL (test code = HDL) 37 [facility] CenterFfhbvulNLQMOC4310-08-27 12:33:00 Test Item Value Reference Range Interpretation Comments Trig (test code = Trig) 76 [facility] CenterPisiqqtQTFUKQ0653-43-34 12:33:00 Test Item Value Reference Range Interpretation Comments LDL (Calculated) (test code = LDL 76 (Calculated)) [facility] CenterOzvqilrDPBZTQ8131-43-90 12:33:00 Test Item Value Reference Range Interpretation Comments CHD Risk (test code = CHD Risk) 3.5 [facility]YlypfjjFZUKBR7838-35-18 12:33:00 Test Item Value Reference Range Interpretation Comments Non HDL Chol (test code = Non HDL Chol) 92 [place] 889900-08-06 14:47:00 Test Item Value Reference Range Interpretation Comments Vitamin D, 25-OH, Total (test code = 37 30-100 Vitamin D, 25-OH, Total) [place] 889900-08-06 14:47:00 Test Item Value Reference Range Interpretation Comments U Creat mg/dL (test code = U Creat 114 20-275 mg/dL) [place] 889900-08-06 14:47:00 Test Item Value Reference Range Interpretation Comments U Prot/Creat (test code = U Prot/Creat) 430 21-161 [place] 889900-08-06 14:47:00 Test Item Value Reference Range Interpretation Comments U Prot/Creat (test code = U 0.430 1 0.021-0.161 Prot/Creat) [place] 889900-08-06 14:47:00 Test Item Value Reference Range Interpretation Comments U Protein (test code = U Protein) 49 5-24 [place] 889900-08-06 14:47:00 Test Item Value Reference Range Interpretation Comments Glucose Lvl (test code = Glucose Lvl) 103 65-99 [place] 889900-08-06 14:47:00 Test Item Value Reference Range Interpretation Comments BUN (test code = BUN) 24 7-25 [place] 889900-08-06 14:47:00 Test Item Value Reference Range Interpretation Comments Vitamin D, 25-OH, Total (test code = 37 30-100 Vitamin D, 25-OH, Total) [place] 889900-08-06 14:47:00 Test Item Value Reference Range Interpretation Comments U Creat mg/dL (test code = U Creat 114 20-275 mg/dL) [place] 889900-08-06 14:47:00 Test Item Value Reference Range Interpretation Comments Creatinine Lvl (test code = Creatinine 1.32 0.50-0.99 Lvl) [place] 889900-08-06 14:47:00 Test Item Value Reference Range Interpretation Comments U Prot/Creat (test code = U Prot/Creat) 430 21-161 [facility]2020-08-06 14:47:00 Test Item Value Reference Range Interpretation Comments U Prot/Creat (test code = U 0.430 1 0.021-0.161 Prot/Creat) [facility]2020-08-06 14:47:00 Test Item Value Reference Range Interpretation Comments U Protein (test code = U Protein) 49 5-24 [place] 889900-08-06 14:47:00 Test Item Value Reference Range Interpretation Comments Glucose Lvl (test code = Glucose Lvl) 103 65-99 [place] 889900-08-06 14:47:00 Test Item Value Reference Range Interpretation Comments BUN (test code = BUN) 24 7-25 [facility]2020-08-06 14:47:00 Test Item Value Reference Range Interpretation Comments Creatinine Lvl (test code = Creatinine 1.32 0.50-0.99 Lvl) [facility]2020-08-06 14:47:00 Test Item Value Reference Range Interpretation Comments eGFR NON-AFR. ALBANIAN (test code = 43 eGFR NON-AFR. ALBANIAN) [facility]2020-08-06 14:47:00 Test Item Value Reference Range Interpretation Comments eGFR (test code = eGFR 50 ) [facility]2020-08-06 14:47:00 Test Item Value Reference Range Interpretation Comments B/C Ratio (test code = B/C Ratio) 18 6-22 [facility]2020-08-06 14:47:00 Test Item Value Reference Range Interpretation Comments Sodium Lvl (test code = Sodium Lvl) 138 135-146 [facility]2020-08-06 14:47:00 Test Item Value Reference Range Interpretation Comments Potassium Lvl (test code = Potassium 4.4 3.5-5.3 Lvl) [facility]2020-08-06 14:47:00 Test Item Value Reference Range Interpretation Comments Chloride Lvl (test code = Chloride Lvl) 102 98-110 [place] 889900-08-06 14:47:00 Test Item Value Reference Range Interpretation Comments CO2 (test code = CO2) 30 20-32 [place] 889900-08-06 14:47:00 Test Item Value Reference Range Interpretation Comments Calcium Lvl (test code = Calcium Lvl) 9.4 8.6-10.4 [facility]2020-08-06 14:47:00 Test Item Value Reference Range Interpretation Comments Phosphorus (test code = Phosphorus) 4.8 2.5-4.5 [place] 889900-08-06 14:47:00 Test Item Value Reference Range Interpretation Comments Albumin Lvl (test code = Albumin Lvl) 3.9 3.6-5.1 [place] 383960-08-06 14:47:00 Test Item Value Reference Range Interpretation Comments Plt Count Estimated (test code = DECREASED Plt Count Estimated) [facility]iscoEpsidmiSDJAJVRPFU2326-56-66 14:47:00 Test Item Value Reference Range Interpretation Comments WBC X 10x3 (test code = WBC X 10x3) 7.2 3.8-10.8 [place] [address]-08-06 14:47:00 Test Item Value Reference Range Interpretation Comments RBC X 10x6 (test code = RBC X 10x6) 3.71 3.80-5.10 [place] [address]-08-06 14:47:00 Test Item Value Reference Range Interpretation Comments Hgb (test code = Hgb) 10.7 11.7-15.5 [facility]2020-08-06 14:47:00 Test Item Value Reference Range Interpretation Comments eGFR NON-AFR. ALBANIAN (test code = 43 eGFR NON-AFR. ALBANIAN) [facility] FriscoWrhgbmyLHYLIZJBHI4603-61-13 14:47:00 Test Item Value Reference Range Interpretation Comments Hct (test code = Hct) 33.9 35.0-45.0 [place] 383960-08-06 14:47:00 Test Item Value Reference Range Interpretation Comments MCV (test code = MCV) 91.4 80.0-100.0 [place] [address]-08-06 14:47:00 Test Item Value Reference Range Interpretation Comments MCH (test code = MCH) 28.8 pg 27.0-33.0 [place] [address]-08-06 14:47:00 Test Item Value Reference Range Interpretation Comments MCHC (test code = MCHC) 31.6 32.0-36.0 [place] 383960-08-06 14:47:00 Test Item Value Reference Range Interpretation Comments RDW (test code = RDW) 13.9 11.0-15.0 [facility] FriscoDsyyccwMRMQRSCNIA2439-91-03 14:47:00 Test Item Value Reference Range Interpretation Comments Platelet (test code = Platelet) 110 140-400 [facility] FriscoIfyybtpPLHWCFSRFN0697-93-70 14:47:00 Test Item Value Reference Range Interpretation Comments MPV (test code = MPV) 11.7 7.5-12.5 [facility] FriscoVmuiogoWWXXZVVLMH6876-02-36 14:47:00 Test Item Value Reference Range Interpretation Comments Neutrophils # (test code = Neutrophils 5414 3793-5505 #) [facility] FriscoJyhamqdWOYKSSJHAP0628-47-60 14:47:00 Test Item Value Reference Range Interpretation Comments Lymphocytes # (test code = Lymphocytes 7902 581-9052 #) [facility] FriscoNmdkwsbKSSVZFLVUL9762-89-37 14:47:00 Test Item Value Reference Range Interpretation Comments Monocytes # (test code = Monocytes #) 461 200-950 [facility]2020-08-06 14:47:00 Test Item Value Reference Range Interpretation Comments eGFR (test code = eGFR 50 ) [facility] FriscoUnpdrrtNFXWKXTVDC6544-97-36 14:47:00 Test Item Value Reference Range Interpretation Comments Eosinophils # (test code = Eosinophils 122 15-500 #) [facility] FriscoVrtedkwIENPQBSWFE9768-00-26 14:47:00 Test Item Value Reference Range Interpretation Comments Basophils # (test code 50 See_Comment [Aut omated message] The = Basophils #) system which generated this result tra nsmitted reference range : <=200. The reference r edy was not used to int erpret this result as normal/abnormal . [facility] [id number] 14:47:00 Test Item Value Reference Range Interpretation Comments Segs (test code = Segs) 75.2 [facility]iscoXwebcqzACRQXRETHE8817-18-74 14:47:00 Test Item Value Reference Range Interpretation Comments Lymphocytes (test code = Lymphocytes) 16.0 [place] 383960-08-06 14:47:00 Test Item Value Reference Range Interpretation Comments Monocytes (test code = Monocytes) 6.4 [place] [address]-08-06 14:47:00 Test Item Value Reference Range Interpretation Comments Eosinophils (test code = Eosinophils) 1.7 [place] [address]-08-06 14:47:00 Test Item Value Reference Range Interpretation Comments Basophils (test code = Basophils) 0.7 [facility] [id number] 14:47:00 Test Item Value Reference Range Interpretation Comments Result 2 (Urine Culture) See Result Comment (test code = Result 2 (Urine Culture)) [facility] [id number] 14:47:00 Test Item Value Reference Range Interpretation Comments UA Color (test code = UA Color) YELLOW [facility] [id number] 14:47:00 Test Item Value Reference Range Interpretation Comments UA Turbidity (test code = UA CLOUDY Turbidity) [facility]annCHEM [id number] 14:47:00 Test Item Value Reference Range Interpretation Comments B/C Ratio (test code = B/C Ratio) 18 6-22 [facility] [id number] 14:47:00 Test Item Value Reference Range Interpretation Comments UA Spec Grav (test code = UA Spec 1.017 1 1.001-1.035 Grav) [facility] [id number] 14:47:00 Test Item Value Reference Range Interpretation Comments UA pH (test code = UA pH) 5.5 1 5.0-8.0 [facility] [id number] 14:47:00 Test Item Value Reference Range Interpretation Comments UA Glucose (test code = UA Glucose) NEGATIVE [facility] [id number] 14:47:00 Test Item Value Reference Range Interpretation Comments UA Bili (test code = UA Bili) NEGATIVE [facility] [id number] 14:47:00 Test Item Value Reference Range Interpretation Comments UA Ketones (test code = UA Ketones) NEGATIVE [facility] [id number] 14:47:00 Test Item Value Reference Range Interpretation Comments UA Blood (test code = UA Blood) 1+ [facility] [id number] 14:47:00 Test Item Value Reference Range Interpretation Comments UA Protein (test code = UA Protein) 1+ [facility] [id number] 14:47:00 Test Item Value Reference Range Interpretation Comments UA Nitrite (test code = UA Nitrite) POSITIVE [facility] [id number] 14:47:00 Test Item Value Reference Range Interpretation Comments UA Leuk Est (test code = UA Leuk Est) 2+ [facility] AND [id number] 14:47:00 Test Item Value Reference Range Interpretation Comments UA WBC (test code = UA WBC) > OR = 60 [facility]2020-08-06 14:47:00 Test Item Value Reference Range Interpretation Comments Sodium Lvl (test code = Sodium Lvl) 138 135-146 [facility] AND [id number] 14:47:00 Test Item Value Reference Range Interpretation Comments UA RBC (test code = UA RBC) 0-2 [facility] AND [id number] 14:47:00 Test Item Value Reference Range Interpretation Comments UA Sq Epi (test code = UA Sq Epi) NONE SEEN [facility] AND [id number] 14:47:00 Test Item Value Reference Range Interpretation Comments UA Bacteria (test code = UA Bacteria) MANY [facility] AND [id number] 14:47:00 Test Item Value Reference Range Interpretation Comments UA Hyal Cast (test code = UA Hyal NONE SEEN Cast) [facility] AND [id number] 14:47:00 Test Item Value Reference Range Interpretation Comments UA Reflex (test code CULTURE INDICATED - = UA Reflex) RESULTS TO FOLLOW [facility]2020-08-06 14:47:00 Test Item Value Reference Range Interpretation Comments U Creat mg/dL (test code = U Creat 114 20-275 mg/dL) [facility]2020-08-06 14:47:00 Test Item Value Reference Range Interpretation Comments U Alb (test code = U Alb) 16.7 [facility]2020-08-06 14:47:00 Test Item Value Reference Range Interpretation Comments U Alb/Crea (test code = U Alb/Crea) 146 [facility]2020-08-06 14:47:00 Test Item Value Reference Range Interpretation Comments Potassium Lvl (test code = Potassium 4.4 3.5-5.3 Lvl) [facility]2020-08-06 14:47:00 Test Item Value Reference Range Interpretation Comments Chloride Lvl (test code = Chloride Lvl) 102 98-110 [facility]2020-08-06 14:47:00 Test Item Value Reference Range Interpretation Comments CO2 (test code = CO2) 30 20-32 [facility]2020-08-06 14:47:00 Test Item Value Reference Range Interpretation Comments Calcium Lvl (test code = Calcium Lvl) 9.4 8.6-10.4 [place] 889900-08-06 14:47:00 Test Item Value Reference Range Interpretation Comments Phosphorus (test code = Phosphorus) 4.8 2.5-4.5 [facility]2020-08-06 14:47:00 Test Item Value Reference Range Interpretation Comments Albumin Lvl (test code = Albumin Lvl) 3.9 3.6-5.1 [place] 383960-08-06 14:47:00 Test Item Value Reference Range Interpretation Comments Plt Count Estimated (test code = DECREASED Plt Count Estimated) [place] 383960-08-06 14:47:00 Test Item Value Reference Range Interpretation Comments WBC X 10x3 (test code = WBC X 10x3) 7.2 3.8-10.8 [place] [address]-08-06 14:47:00 Test Item Value Reference Range Interpretation Comments RBC X 10x6 (test code = RBC X 10x6) 3.71 3.80-5.10 [place] [address]-08-06 14:47:00 Test Item Value Reference Range Interpretation Comments Hgb (test code = Hgb) 10.7 11.7-15.5 [place] [address]-08-06 14:47:00 Test Item Value Reference Range Interpretation Comments Hct (test code = Hct) 33.9 35.0-45.0 [place] [address]-08-06 14:47:00 Test Item Value Reference Range Interpretation Comments MCV (test code = MCV) 91.4 80.0-100.0 [place] [address]-08-06 14:47:00 Test Item Value Reference Range Interpretation Comments MCH (test code = MCH) 28.8 pg 27.0-33.0 [place] [address]-08-06 14:47:00 Test Item Value Reference Range Interpretation Comments MCHC (test code = MCHC) 31.6 32.0-36.0 [place] [address]-08-06 14:47:00 Test Item Value Reference Range Interpretation Comments RDW (test code = RDW) 13.9 11.0-15.0 [facility] CenterZiyasbpDTPVKUQESG5732-20-17 14:47:00 Test Item Value Reference Range Interpretation Comments Platelet (test code = Platelet) 110 140-400 [facility] CenterDsweescAKWZLXTPYV8061-71-69 14:47:00 Test Item Value Reference Range Interpretation Comments MPV (test code = MPV) 11.7 7.5-12.5 [facility] CenterMudqwqxFFUHHWSRZM9169-93-10 14:47:00 Test Item Value Reference Range Interpretation Comments Neutrophils # (test code = Neutrophils 5414 4357-4767 #) [facility] CenterUxfhvtfZJFDSHCBNN2439-03-64 14:47:00 Test Item Value Reference Range Interpretation Comments Lymphocytes # (test code = Lymphocytes 0427 736-7638 #) [facility] CenterMmsgwxuPUIVDKHLRG2042-87-94 14:47:00 Test Item Value Reference Range Interpretation Comments Monocytes # (test code = Monocytes #) 461 200-950 [facility] CenterIamcumbOMXHVMBSPV6283-27-36 14:47:00 Test Item Value Reference Range Interpretation Comments Eosinophils # (test code = Eosinophils 122 15-500 #) [facility] CenterMuzqqgeTYQGGAZCJA5641-26-75 14:47:00 Test Item Value Reference Range Interpretation Comments Basophils # (test code 50 See_Comment [Aut omated message] The = Basophils #) system which generated this result tra nsmitted reference range : <=200. The reference r edy was not used to int erpret this result as normal/abnormal . [facility]iscoPyvvqboTCIEPXGMCD3813-38-30 14:47:00 Test Item Value Reference Range Interpretation Comments Segs (test code = Segs) 75.2 [facility] CenterHujoobcLTCZFSXHUS0243-33-21 14:47:00 Test Item Value Reference Range Interpretation Comments Lymphocytes (test code = Lymphocytes) 16.0 [facility] CenterYrujfguLGAURTMIQA7873-12-70 14:47:00 Test Item Value Reference Range Interpretation Comments Monocytes (test code = Monocytes) 6.4 [facility] CenterGmddrigMYJXQSIUBB2559-92-80 14:47:00 Test Item Value Reference Range Interpretation Comments Eosinophils (test code = Eosinophils) 1.7 [facility] CenterKcqtjkqCFLJRFCWJU2521-68-02 14:47:00 Test Item Value Reference Range Interpretation Comments Basophils (test code = Basophils) 0.7 [facility] AllianceREFERECAROLINAEAST [facility] [id number] 14:47:00 Test Item Value Reference Range Interpretation Comments Result 2 (Urine Culture) See Result Comment (test code = Result 2 (Urine Culture)) [facility] AND [id number] 14:47:00 Test Item Value Reference Range Interpretation Comments UA Color (test code = UA Color) YELLOW [facility] AND [id number] 14:47:00 Test Item Value Reference Range Interpretation Comments UA Turbidity (test code = UA CLOUDY Turbidity) [facility] AND [id number] 14:47:00 Test Item Value Reference Range Interpretation Comments UA Spec Grav (test code = UA Spec 1.017 1 1.001-1.035 Grav) [facility] AND [id number] 14:47:00 Test Item Value Reference Range Interpretation Comments UA pH (test code = UA pH) 5.5 1 5.0-8.0 [facility] AND [id number] 14:47:00 Test Item Value Reference Range Interpretation Comments UA Glucose (test code = UA Glucose) NEGATIVE [facility] AND [id number] 14:47:00 Test Item Value Reference Range Interpretation Comments UA Bili (test code = UA Bili) NEGATIVE [facility] AND [id number] 14:47:00 Test Item Value Reference Range Interpretation Comments UA Ketones (test code = UA Ketones) NEGATIVE [facility] AND [id number] 14:47:00 Test Item Value Reference Range Interpretation Comments UA Blood (test code = UA Blood) 1+ [facility] AND [id number] 14:47:00 Test Item Value Reference Range Interpretation Comments UA Protein (test code = UA Protein) 1+ [facility] AND [id number] 14:47:00 Test Item Value Reference Range Interpretation Comments UA Nitrite (test code = UA Nitrite) POSITIVE [facility] AND [id number] 14:47:00 Test Item Value Reference Range Interpretation Comments UA Leuk Est (test code = UA Leuk Est) 2+ [facility] AND [id number] 14:47:00 Test Item Value Reference Range Interpretation Comments UA WBC (test code = UA WBC) > OR = 60 [facility] AND [id number] 14:47:00 Test Item Value Reference Range Interpretation Comments UA RBC (test code = UA RBC) 0-2 [facility] [id number] 14:47:00 Test Item Value Reference Range Interpretation Comments UA Sq Epi (test code = UA Sq Epi) NONE SEEN [facility] [id number] 14:47:00 Test Item Value Reference Range Interpretation Comments UA Bacteria (test code = UA Bacteria) MANY [facility] [id number] 14:47:00 Test Item Value Reference Range Interpretation Comments UA Hyal Cast (test code = UA Hyal NONE SEEN Cast) [facility] AND [id number] 14:47:00 Test Item Value Reference Range Interpretation Comments UA Reflex (test code CULTURE INDICATED - = UA Reflex) RESULTS TO FOLLOW [facility]2020-08-06 14:47:00 Test Item Value Reference Range Interpretation Comments U Creat mg/dL (test code = U Creat 114 20-275 mg/dL) [facility] [id number] 14:47:00 Test Item Value Reference Range Interpretation Comments U Alb (test code = U Alb) 16.7 [facility] [id number] 14:47:00 Test Item Value Reference Range Interpretation Comments U Alb/Crea (test code = U Alb/Crea) 146 [facility] PROTEIN ELECTROPHORESIS-24HR [id number] 08:01:00 Test Item Value Reference Range Interpretation Comments CREATININE, 24 HOUR 1.45 g/24 h 0.50-2.15 URINE (test code = 18576473) PROTEIN/CREATININE 292 mg/g creat < OR = 114 H RATION (test code = 88834052) PROTEIN, TOTAL 24 HR UR 424 mg/24 h <150 H TEST PERFORMED (test code = 48776594) AT[facility] [address] [place] [address], [place] [address]EIXWYNIECY BOYCE MD ALBUMIN (test code = 35 % 05474839) PEDRF-7-NEKMGXQAU (test 10 % code = 94363504) QCMDC-8-NMOZFUNAH (test 12 % code = 06576903) BETA GLOBULINS (test 25 % code = 48093462) GAMMA GLOBULINS (test 18 % code = 80074933) INTERPRETATION (test Albumin and code = 84230078) various dann bulin fractions detected on proteinelectrop ho resis. No abnormal protei n bands (Bence-Jonespro te inuria) detected.TEST PERFORMED AT:[facility] [place] [facility] [place].[place] [address]MWGRUNIECY BOYCE MD NEUTROPHIL CYTOPLASMIC [id number] 05:19:00 Test Item Value Reference Range Interpretation Comments ANCA SCREEN (test NEGATIVE NEGATIVE ANCA Scree n includes code = 64801447) evaluation for p-ANCA, c-ANCA andatypi alexandre p-ANCA. [...] ofpat ients with Crohn's disease .TEST PERFORMED AT:[facility] [id number] [facility] [place] [place] [address]CMUFLOSCAR EISENBERG MD,PHD ,MICHI COMPREHENSIVE METABOLIC [id number] 06:25:00 Test Item Value Reference Range Interpretation [...] MORPH (test code = RBCMOR) NORMAL URINE [id number] 09:53:00 Test Item Value Reference Range Interpretation [...] = VD) 36.0 ng/mL 30.0-100.0 SERUM PROTEIN [id number] 06:20:00 Test Item Value Reference Range Interpretation Comments PROTEIN TOTAL (test 5.7 g/dL 6.1-8.1 L TEST PER FORMED AT:QUEST code = 78704372) DIAGNOSTICS -[id number] [facility] [place] [address]MYUBRNIECY BOYCE MD ALBUMIN (test code = 3.2 g/dL 3.8-4.8 L 74117363) QWFHB-6-DLAHACOEU 0.4 g/dL 0.2-0.3 H (test code = 10468987) OBAZJ-7-JXEXWXUKI 0.8 g/dL 0.5-0.9 (test code = 07714552) BETA 1 GLOBULIN (test 0.5 g/dL 0.4-0.6 code = 10297932) BETA 2 GLOBULIN (test 0.2 g/dL 0.2-0.5 code = 37017323) GAMMA GLOBULINS (test 0.6 g/dL 0.8-1.7 L code = 26413541) INTERPRETATION (test Pattern consistent with code = 20106433) an acute ph ase reactionConsist ent with hypogammaglobul inemia. Serum free ligh tchains or urine immuno fixation should be consi dered ifplasma cell d yscrasias are a possible clinicaldiagnos is.TEST PERFORMED AT:[facility] [id number] [facility] [place] [address]CRFNALINO BOYCE MD [id number] 06:13:00 Test Item Value Reference Range Interpretation Comments MAGNESIUM (test code = 48A) 1.7 mg/dL 1.8-2.4 L COMPREHENSIVE METABOLIC [id number] 06:13:00 Test Item Value Reference Range Interpretation [...] (test code = RBCMOR) NORMAL COMPREHENSIVE METABOLIC [id number] 05:30:00 Test Item Value Reference Range Interpretation [...] (test code = RBCMOR) NORMAL URINALYSIS WITH [id number] 06:44:00 Test Item Value Reference Range Interpretation [...] code = USPERM) /HPF NONE COMPREHENSIVE METABOLIC [id number] 05:24:00 Test Item Value Reference Range Interpretation [...] = RBCMOR) NORMAL U/S KIDNEY (RENAL)2019-06-06 23:20:42LOCATION: [id number]: 63-year-old female who presents with acute nontraumatic [...] jet was observed onthe color flow study.TROPONIN [id number] 07:14:00 Test Item Value Reference Range Interpretation Comments TROPONIN I (test code = A84) <0.015 ng/mL 0.000-0.045 COMPREHENSIVE METABOLIC [id number] 05:28:00 Test Item Value Reference Range Interpretation [...] (test code = RBCMOR) NORMAL COMPREHENSIVE METABOLIC [id number] 04:58:00 Test Item Value Reference Range Interpretation [...] (test code = MDIFF) NO NO CARDIAC [id number] 23:10:00 Test Item Value Reference Range Interpretation Comments TROPONIN I (test code = A84) <0.015 ng/mL 0.000-0.045 U/S VENOUS DOPPLER BALDO LOW [id number] 22:23:14LOCATION: [id number]: 63-year-old female who presents with bilateral leg swelling.COMMENT: Sonographic imaging of the venous anatomy in both [...] Appropriate waveform responseas are noted on the Dopplerstudy during augmentation maneuvers and duringquiet respiration. IMPRESSION:There is no sonographic evidence of venous thrombosis in either of thispatient's legs. CARDIAC [id number] 16:50:00 Test Item Value Reference Range Interpretation Comments TROPONIN I (test code = A84) <0.015 ng/mL 0.000-0.045 BRAIN NATRIURETIC [id number] 14:39:00 Test Item Value Reference Range Interpretation Comments proBNP (test code = PBNP) 1337 pg/mL 0-125 H THYROID PANEL/SCREEN (TSH)2019-06-04 12:05:00 Test Item Value Reference Range Interpretation Comments TSH (test code = A57) 0.989 uIU/mL 0.358-3.740 [id number] 12:02:00 Test Item Value Reference Range Interpretation Comments CPK (test code = 32A) 98 IU/L 26-192 AMYLASE AND [id number] 12:02:00 Test Item Value Reference Range Interpretation Comments AMYLASE (test code = 10A) 19 U/L 28-100 L LIPASE (test code = 60A) 67 IU/L 73-393 L COMPREHENSIVE METABOLIC [id number] 12:02:00 Test Item Value Reference Range Interpretation [...] code = 31A) 41 IU/L <=78 TROPONIN [id number] 11:57:00 Test Item Value Reference Range Interpretation Comments TROPONIN I (test code = A84) <0.015 ng/mL 0.000-0.045 XR CHEST 1 VIEW [id number] 11:55:22EXAM: XR CHEST 1 VIEW PORTABLE.LOCATION: D4.HISTORY: [id number]: Chest pain.COMPARISON: Radiograph dated 05/12/2019.TECHNIQUE: Single AP view of the chest was obtained. FINDINGS:The heart is enlarged in size. Small left pleural effusion and left basilaropacities are present. There is elevation of the right hemidiaphragm. No acuteosseous abnormality is identified.IMPRESSION:Small left pleural effusion with left basilar opacities, which may representatelectasis or infiltrates.Cardiomegaly. PRO TIME AND [id number] 11:43:00 Test Item Value Reference Range Interpretation Comments PT (test code = 13.4 s 9.8-13.6 TT) INR (test code = 1.2 INR) INRH (test code = SUGGESTED THERAPEUTIC INRH) RANGE FOR INR: 2.5 - 3.5 For [...] (test code = RBCMOR) NORMAL CBC WITH [id number] 15:29:00 Test Item Value Reference Range Interpretation [...] NORMAL (1.5-3 um) NORMAL PLTMOR) BASIC METABOLIC [id number] 15:26:00 Test Item Value Reference Range Interpretation [...] code = 09D) 9.2 mg/dL 8.3-9.5 CARDIAC [id number] 06:04:00 Test Item Value Reference Range Interpretation Comments TROPONIN I (test code = A84) <0.015 ng/mL 0.000-0.045 BASIC METABOLIC [id number] 05:52:00 Test Item Value Reference Range Interpretation [...] MORPH (test code = RBCMOR) NORMAL CARDIAC [id number] 23:08:00 Test Item Value Reference Range Interpretation Comments TROPONIN I (test code = A84) <0.015 ng/mL 0.000-0.045 CT DISSECTION [id number] 19:26:35Exam: CT thorax PE protocol.Location: H 12History: [id number]: Chest painTechnique: Enhanced spiral slices were taken [...] The heart size is normal.No pericardialeffusion is s een.The visualized upper abdominal organs are unremarkable.Impression:1. Negative for pulmonary embolism.2. No acute disease.THYROID PANEL/SCREEN (TSH) 2019-05-12 18:29:00 Test Item Value Reference Range Interpretation Comments TSH (test code = A57) 0.706 uIU/mL 0.358-3.740 LIVER [id number] 18:28:00 Test Item Value Reference Range Interpretation [...] = 31A) 21 IU/L <=78 BRAIN NATRIURETIC [id number] 18:19:00 Test Item Value Reference Range Interpretation Comments proBNP (test code = PBNP) 518 pg/mL 0-125 H [id number] 18:15:00 Test Item Value Reference Range Interpretation Comments MAGNESIUM (test code = 48A) 1.9 mg/dL 1.8-2.4 D-[id number] 17:40:00 Test Item Value Reference Range Interpretation Comments D-DIMER (test code = <200 ng/mL D-DU 0-234 DDI) D-DIMER COMMENT (test *Level to rule out code = DDCOM) DVT or PE: <235 ng/mL D-DU* CARDIAC [id number] 17:31:00 Test Item Value Reference Range Interpretation Comments TROPONIN I (test code = A84) <0.015 ng/mL 0.000-0.045 BASIC METABOLIC [id number] 17:27:00 Test Item Value Reference Range Interpretation [...] LMW Heparin. Order Code is ANTI-XA PROTHROMBIN [id number] 17:26:00 Test Item Value Reference Range Interpretation Comments PT (test code = 12.0 s 9.8-13.6 TT) INR (test code = 1.1 INR) INRH (test code = SUGGESTED THERAPEUTIC INRH) RANGE FOR INR: 2.5 - 3.5 For Patients with Prosthetic Valves or Patients with recurrent Thromboembolic Events 2.0 - 3.0 For Most Other Applications XR CHEST 1 VIEW [id number] 17:04:28Portable AP chest, 1 viewLocation Code: [id number] HISTORY: Chest painCOMPARISON: NoneCOMMENT: Mild atelectasis is present within the lung bases. The costophrenic angles aresharp. The cardiomediastinalsilhouette is unremarkable. The bones are intact.IMPRESSION: Mild bibasilar atelectasis. Otherwise, no acute abnormalityCHEM [id number] 16:51:00 Test Item Value Reference Range Interpretation Comments Creatinine Lvl (test code = Creatinine 1.15 0.50-1.40 Lvl) [facility]2017-01-24 16:51:00 Test Item Value Reference Range Interpretation Comments BUN (test code = BUN) 16 7-22 [facility]2017-01-24 16:51:00 Test Item Value Reference Range Interpretation Comments Chloride Lvl (test code = Chloride Lvl) 109 95-109 [facility] [id number] 16:51:00 Test Item Value Reference Range Interpretation Comments Potassium Lvl (test code = Potassium 4.3 3.5-5.1 Lvl) [facility]2017-01-24 16:51:00 Test Item Value Reference Range Interpretation Comments Sodium Lvl (test code = Sodium Lvl) 144 135-145 [facility]2017-01-24 16:51:00 Test Item Value Reference Range Interpretation Comments CO2 (test code = CO2) [facility]2017-01-24 16:51:00 Test Item Value Reference Range Interpretation Comments Calcium Lvl (test code = Calcium Lvl) 8.4 8.5-10.5 [facility]2017-01-24 16:51:00 Test Item Value Reference Range Interpretation Comments AGAP (test code = AGAP) 11.3 10.0-20.0 [facility]2017-01-24 16:51:00 Test Item Value Reference Range Interpretation Comments Glucose Lvl (test code = Glucose Lvl) 109 70-99 [facility]2017-01-24 16:51:00 Test Item Value Reference Range Interpretation Comments eGFR (test code = eGFR) 52 [facility]2017-01-24 16:51:00 Test Item Value Reference Range Interpretation Comments Creatinine Lvl (test code = Creatinine 1.15 0.50-1.40 Lvl) [facility]2017-01-24 16:51:00 Test Item Value Reference Range Interpretation Comments BUN (test code = BUN) 16 - [facility]2017-01-24 16:51:00 Test Item Value Reference Range Interpretation Comments Chloride Lvl (test code = Chloride Lvl) 109 95-109 [facility]2017-01-24 16:51:00 Test Item Value Reference Range Interpretation Comments Potassium Lvl (test code = Potassium 4.3 3.5-5.1 Lvl) [facility]2017-01-24 16:51:00 Test Item Value Reference Range Interpretation Comments Sodium Lvl (test code = Sodium Lvl) 144 135-145 [facility]2017-01-24 16:51:00 Test Item Value Reference Range Interpretation Comments CO2 (test code = CO2) [facility]2017-01-24 16:51:00 Test Item Value Reference Range Interpretation Comments Calcium Lvl (test code = Calcium Lvl) 8.4 8.5-10.5 [facility]2017-01-24 16:51:00 Test Item Value Reference Range Interpretation Comments AGAP (test code = AGAP) 11.3 10.0-20.0 [facility]2017-01-24 16:51:00 Test Item Value Reference Range Interpretation Comments Glucose Lvl (test code = Glucose Lvl) 109 70-99 [facility]2017-01-24 16:51:00 Test Item Value Reference Range Interpretation Comments eGFR (test code = eGFR) 52 [facility]
[2022-08-06] MEDS ORDERED: ONDANSETRON 4 MG/2 ML VIAL ONE (20:11)
[2022-08-06 20:40] LABS: Hematocrit 31.9 % (36.0-45.0); Lymphocytes % 12.2 % (15.3-44.8); MCV 104.6 fL (80-100); MPV 7.9 fL (7.6-11.3); RBC Red Blood Cell Count 3.05 M/uL (3.86-4.86)
[2022-08-06 20:56] LABS: Albumin 3.2 g/dL (3.4-5.0); Bilirubin Total 0.7 mg/dL (0.2-1.0); Protein, Total 6.8 g/dL (6.4-8.2)
[2022-08-06 20:57] LABS: Potassium 4.4 mmol/L (3.5-5.1)
--- NOTE | 2022-08-06 23:48 | RAD REPORT ---
EXAM DESCRIPTION: CTAbdomen Pelvis Wo Contrast - 08/06/2022 11:33 pm CLINICAL HISTORY: abdominal pain COMPARISON: [facility] Protocol dated 08/03/2022; Abdomen Pelvis Wo Contrast dated 07/29/2022; Abdomen Pelvis Wo Contrast dated 05/19/2022; Abdomen Pelvis Wo Contrast dated 01/01/2022tone Protocol dated 08/03/2022; Abdomen Pelvis Wo Contrast dated 07/29/2022; Abdomen Pelvis Wo Contrast dated 05/19/20 22; Abdomen Pelvis Wo Contrast dated 01/01/2022; [facility] Protocol dated 10/26/2021 TECHNIQUE: CT of the abdomen and pelvis was performed. All CT scans are performed using dose optimization technique as appropriate and may include automated exposure control or mA/KV adjustment according to patient size. FINDINGS: Lower chest: Tiny right pleural effusion. Cardiomegaly. Coronary artery calcifications. Di alysis catheter. Liver: No acute abnormality or suspicious lesions. Biliary: No biliary ductal dilatation. Stomach: No significant focal abnormality. Duodenum: No significant focal abnormality. Pancreas: No significant abnormality. Spleen: No significant abnormality. Adrenal: No suspicious lesions. Kidney/ureter: No hydronephrosis. Multiple calcifications in the left interpolar kidney and collectin g system. Too small to characterize and/or benign appearing renal lesions are noted. Renal scarring. Retroperitoneum: No retroperitoneal adenopathy. Vascular: No aneurysm. Bowel: Subacute/ chronic T11, T12, L2, L3, L4, and L5 compression fractures. . No appendicitis. Peritoneum: Simple appearing fluid collection posterior to the right hepatic lobe is again identified . This is unchanged. Bladder: Grossly unremarkable. Reproductive: No adnexal masses. Tubal ligation clips. Bones: L1 kyphoplasty. Other: n/a IMPRESSION: No acute intra-abdominal or pelvic finding. Combination of subacute and chronic thoracic and lumbar compression fractures. No new acute fracture.
[2022-08-07] MEDS ORDERED: TRAMADOL HCL 50 MG TAB ONE (00:30)
[2022-08-07 00:42] LABS: Urine Bacteria <20 /HPF (<20); Urine RBC <5 /HPF (None Seen)
--- NOTE | 2022-08-07 00:59 | EDPHYS ---
Physician Documentation [facility] Name: Kassie De Jesus Age: 66 yrs Sex: Female : 1955 Arrival Date: 08/06/2022 Time: 17:59 Bed 25 Private MD: ED Physician Jacky Mcneill HPI: 08/06 22:53 This 66 yrs old Female presents to ER via Wheelchair with complaints of Flank Pain. ms3 22:53 66-year-old female with past medical history of end-stage renal disease, ms3 hyperlipidemia, hypertension, atrial fibrillation, congestive heart failure presents for right-sided flank pain that began at 7:30 AM. Patient states pain is an 8/10 described as sharp. Patient denies alleviating or inciting factors. Patient denies fevers, chills, nausea, vomiting, diarrhea. Historical: - Allergies: 18:23 Bactrim; tw2 18:23 cefepime; tw2 18:23 Codeine; tw2 18:23 PENICILLINS; tw2 18:23 QUINOLONES; tw2 18:23 levofloxacin; tw2 18:23 Morphine; itching; tw2 - PMHx: 18:23 stage 4 kidney failure; High Cholesterol; Hypertensive disorder; Dialysis; Congestive tw2 heart failure; Atrial fibrillation; - PSHx: 18:23 back surgery; Dialysis catheter LEFT upper chest; tw2 - Immunization history:: Adult Immunizations. - Social history:: Smoking status: . ROS: 22:53 Constitutional: Negative for fever, and chills. Neck: Negative for injury, pain, and ms3 swelling, Cardiovascular: Negative for chest pain, and palpitations. Respiratory: Negative for shortness of breath, cough, wheezing, and pleuritic chest pain, Abdomen/GI: Negative for abdominal pain, nausea, vomiting, diarrhea, and constipation. 22:53 Skin: Negative for injury, rash, and discoloration. 22:53 Back: Positive for flank pain, on the right. 22:53 All other systems are negative. Exam: 22:53 Constitutional: This is a well developed, well nourished patient who is awake, alert, ms3 and in no acute distress. Eyes: Pupils equal round and reactive to light, extra-ocular motions intact. Lids and lashes normal. Conjunctiva and sclera are non-icteric and not injected. Periorbital areas with no swelling, redness, or edema. ENT: Nares patent. No nasal discharge, no septal abnormalities noted. Tympanic membranes are normal and external auditory canals are clear. Oropharynx with no redness, swelling, or masses, exudates, or evidence of obstruction, uvula midline. Mucous membranes moist. Neck: Trachea midline, no cervical lymphadenopathy. Supple, full range of motion without nuchal rigidity, or vertebral point tenderness. No Meningismus. Chest/axilla: Normal chest wall appearance and motion. Nontender with no deformity. Cardiovascular: Regular rate and rhythm with a normal S1 and S2. No gallops, murmurs, or rubs. Normal PMI, no JVD. No pulse deficits. Respiratory: Lungs have equal breath sounds bilaterally, clear to auscultation and percussion. No rales, rhonchi or wheezes noted. No increased work of breathing, no retractions or nasal flaring. Abdomen/GI: Soft, non-tender, with normal bowel sounds. No distension or tympany. No guarding or rebound. No evidence of tenderness throughout. 22:53 Skin: Warm, dry with normal turgor. Normal color with no rashes, no lesions, and no evidence of cellulitis. Psych: Awake, alert, with orientation to person, place and time. Behavior, mood, and affect are within normal limits. 22:53 Back: CVA tenderness, that is moderate, is noted on the right. Vital Signs: 18:19 BP 124 / 50; Pulse 80; Resp 17; Temp 98.4(TE); Pulse Ox 93% on R/A; Weight 111.58 kg tw2 (R); Height 5 ft. 7 in. (170.18 cm); Pain 8/10; 20:31 BP 105 / 69; Pulse 68; Resp 18 S; Pulse Ox 99% on 2 lpm NC; as6 21:45 BP 127 / 84; Pulse 72; Resp 18 S; Pulse Ox 100% on R/A; as6 23:12 BP 116 / 67; Pulse 68; Resp 16 S; Pulse Ox 100% on R/A; as6 08/07 00:39 BP 133 / 64; Pulse 86; Resp 20 S; Temp 97.7(O); Pulse Ox 100% on 2 lpm NC; bb 08/06 18:19 Body Mass Index 38.53 (111.58 kg, 170.18 cm) tw2 08/06 18:19 pt states uses home o2 daily at 2L and 93 % is good for her, pt placed on 2l nc at this tw2 time MDM: 19:26 Patient medically screened. ms3 22:53 Differential diagnosis: nephrolithiasis, pyelonephritis, UTI. ms3 08/07 00:59 Data reviewed: vital signs, nurses notes, lab test result(s), radiologic studies, and ms3 as a result, I will discharge patient. Counseling: I had a detailed discussion with the patient and/or guardian regarding: the historical points, exam findings, and any diagnostic results supporting the discharge/admit diagnosis, lab results, radiology results, the need for outpatient follow up, to return to the emergency department if symptoms worsen or persist or if there are any questions or concerns that arise at home. ED course: Discussed labs, imaging, physical exam findings with patient and her . Patient to follow-up with her primary care physician in 2 to 3 days. Return precautions discussed include worsening symptoms, or any other concerns. On reevaluation patient is alert and oriented, in no apparent distress, nontoxic, ambulatory in the emergency department, speaking full sentences.. 08/06 19:29 Order name: CBC with Diff; Complete Time: 22:53 ms3 08/06 19:29 Order name: CMP; Complete Time: 22:53 ms3 08/06 19:29 Order name: Lipase; Complete Time: 22:53 ms3 08/06 19:29 Order name: Urine Microscopic Only; Complete Time: 00:50 ms3 08/07 00:45 Order name: Urine Culture EDMS 08/06 19:29 Order name: IV Saline Lock; Complete Time: 20:31 ms3 08/06 19:29 Order name: Labs collected and sent; Complete Time: 20:31 ms3 08/06 19:29 Order name: Urine Dipstick-Ancillary (obtain specimen); Complete Time: 21:44 ms3 08/06 23:25 Order name: Abdomen ; Complete Time: 23:56 EDMS Administered Medications: 08/06 20:31 Drug: Zofran (Ondansetron) 4 mg Route: IVP; Site: right antecubital; as6 22:00 Follow up: Response: No adverse reaction bb 08/07 00:27 CANCELLED (Physician Discretion): Ketamine 10 mg IVP once ms3 00:38 Drug: traMADol 50 mg Route: PO; bb 01:16 Follow up: Response: No adverse reaction bb Disposition Summary: 08/07/22 00:59 Discharge Ordered Location: Home ms3 Condition: Stable ms3 Diagnosis - Right flank pain ms3 - Compression fractures of Thoracic and Lumbar vertebrae ms3 Followup: ms3 - With: Private Physician - When: 2 - 3 days - Reason: Recheck today's complaints Discharge Instructions: - Discharge Summary Sheet ms3 - Flank Pain, Adult ms3 Forms: - Medication Reconciliation Form ms3 - Thank You Letter ms3 - Antibiotic Education ms3 - Prescription Opioid Use ms3 Prescriptions: - ondansetron 4 mg Oral tablet,disintegrating - take 1 tablet by ORAL route every 8 hours; 15 tablet; Refills: 0, Product ms3 Selection Permitted Signatures: Dispatcher [employer] Shanon Rodríguez RN RN bb Verónica Webb RN RN tw2 Jacky Mcneill DO DO ms3 Napoleon Newton RN RN as6 Corrections: (The following items were deleted from the chart) 00:27 00:18 Ketamine 10 mg IVP once ordered. ms3 ms3
--- NOTE | 2022-08-07 00:59 | ER ---
Nurse's Notes [facility] Name: Kassie De Jesus Age: 66 yrs Sex: Female : 1955 Arrival Date: 08/06/2022 Time: 17:59 Bed 25 Private MD: Diagnosis: Right flank pain;Compression fractures of Thoracic and Lumbar vertebrae Presentation: 08/06 18:19 Chief complaint: Patient states: i am having a really stabbing pain in my right side tw2 about waist level. just started today. i just got out of the hospital and told me that was because i missed dialysis. was sick last week and couldn't do normal dialysis which is //. i make very little urine since dialysis, i do have a discharge that's gummy like its brownish yellow and does have an odor. Coronavirus screen: At this time, the client does not indicate any symptoms associated with coronavirus-19. Ebola Screen: Patient denies travel to an Ebola-affected area in the 21 days before illness onset. Initial Sepsis Screen: Does the patient meet any 2 criteria? No. Patient's initial sepsis screen is negative. Does the patient have a suspected source of infection? No. Patient's initial sepsis screen is negative. Risk Assessment: Do you want to hurt yourself or someone else? Patient reports no desire to harm self or others. Onset of symptoms was August 06, 2022. 18:19 Method Of Arrival: Wheelchair tw2 18:19 Acuity: LENI 3 tw2 Triage Assessment: 18:23 General: Appears in no apparent distress. uncomfortable, obese, Behavior is calm, tw2 cooperative, appropriate for age. Pain: Complains of pain in right flank pain. Neuro: Level of Consciousness is awake, alert, obeys commands, Oriented to person, place, time, situation. : Reports discharge, malodorous, yellow. Historical: - Allergies: 18:23 Bactrim; tw2 18:23 cefepime; tw2 18:23 Codeine; tw2 18:23 PENICILLINS; tw2 18:23 QUINOLONES; tw2 18:23 levofloxacin; tw2 18:23 Morphine; itching; tw2 - PMHx: 18:23 stage 4 kidney failure; High Cholesterol; Hypertensive disorder; Dialysis; Congestive tw2 heart failure; Atrial fibrillation; - PSHx: 18:23 back surgery; Dialysis catheter LEFT upper chest; tw2 - Immunization history:: Adult Immunizations. - Social history:: Smoking status: . Screenin:31 Abuse screen: Denies threats or abuse. Denies injuries from another. Nutritional as6 screening: No deficits noted. Tuberculosis screening: No symptoms or risk factors identified. Fall Risk None identified. Assessment: 20:29 General: Appears in no apparent distress. Behavior is calm, cooperative. Pain: as6 Complains of pain in right flank. Neuro: Level of Consciousness is awake, alert. Respiratory: Respiratory effort is even, unlabored. GI: Reports nausea. : Reports. : Reports inability to void. : Reports pain in right flank(s). 23:12 General: updated pt on plan of care, pending CT results . as6 08/07 00:39 Reassessment: Patient is alert, oriented x 3, equal unlabored respirations, skin bb warm/dry/pink. awaiting urine results, family at bedside. 01:17 Reassessment: Patient is alert, oriented x 3, equal unlabored respirations, skin bb warm/dry/pink. pt verbalized understanding of and agrees to plan of care discharge instructions given pt assisted to exit via wheelchair accompanied by spouse. Vital Signs: 08/06 18:19 BP 124 / 50; Pulse 80; Resp 17; Temp 98.4(TE); Pulse Ox 93% on R/A; Weight 111.58 kg tw2 (R); Height 5 ft. 7 in. (170.18 cm); Pain 8/10; 20:31 BP 105 / 69; Pulse 68; Resp 18 S; Pulse Ox 99% on 2 lpm NC; as6 21:45 BP 127 / 84; Pulse 72; Resp 18 S; Pulse Ox 100% on R/A; as6 23:12 BP 116 / 67; Pulse 68; Resp 16 S; Pulse Ox 100% on R/A; as6 08/07 00:39 BP 133 / 64; Pulse 86; Resp 20 S; Temp 97.7(O); Pulse Ox 100% on 2 lpm NC; bb 08/06 18:19 Body Mass Index 38.53 (111.58 kg, 170.18 cm) tw2 08/06 18:19 pt states uses home o2 daily at 2L and 93 % is good for her, pt placed on 2l nc at this tw2 time ED Course: 17:59 Patient arrived in ED. ja2 18:23 Triage completed. tw2 18:23 Arm band placed on. tw2 19:05 Jacky Mcneill DO is Attending Physician. ms3 19:56 Napoleon Newton, RN is Primary Nurse. as6 20:30 Inserted saline lock: 20 gauge in right antecubital area, using aseptic technique. as6 Blood collected. 20:31 Bed in low position. Call light in reach. as6 23:35 Abdomen In Process Unspecified. EDMS 08/07 00:15 Straight cath inserted, using sterile technique, Specimen obtained. Returned scant bb amount of cream colored opaque urine. 00:40 Primary Nurse role handed off by Napoleon Newton, ARMANDO bb 00:40 Shanon Kemp RN is Primary Nurse. bb 01:18 No provider procedures requiring assistance completed. IV discontinued, intact, bb bleeding controlled, No redness/swelling at site. Pressure dressing applied. Administered Medications: 08/06 20:31 Drug: Zofran (Ondansetron) 4 mg Route: IVP; Site: right antecubital; as6 22:00 Follow up: Response: No adverse reaction bb 08/07 00:27 CANCELLED (Physician Discretion): Ketamine 10 mg IVP once ms3 00:38 Drug: traMADol 50 mg Route: PO; bb 01:16 Follow up: Response: No adverse reaction bb Medication: 08/06 23:12 VIS not applicable for this client. as6 Outcome: 08/07 00:59 Discharge ordered by . ms3 01:18 Discharged to home via wheelchair, with family. bb 01:18 Condition: stable 01:18 Discharge instructions given to patient, Instructed on discharge instructions, follow up and referral plans. medication usage, Demonstrated understanding of instructions, follow-up care, medications, Prescriptions given X 1. 01:18 Patient left the ED. bb Signatures: Dispatcher [employer] EDMS Shanon Kemp, ARMANDO RN bb Verónica Webb RN RN tw2 Jacky Mcneill DO DO ms3 Nikia Santillan ja2 Napoleon Newton, ARMANDO RN as6
[2022-08-07 01:44] VITALS: O2SAT 100
[2022-08-07 01:47] VITALS: BP 133/64; TEMP 97.7
== END 2022-08-07 01:18 | disposition home or self-care (01) ==
LOC: ER 17:55
DX: R10.9 Unspecified abdominal pain (principal); M48.55XA Collapsed vertebra, not elsewhere classified, thoracolumbar region, initial encounter for fracture; N18.6 End stage renal disease; Z99.2 Dependence on renal dialysis; E78.5 Hyperlipidemia, unspecified; I48.91 Unspecified atrial fibrillation; Z88.0 Allergy status to penicillin; Z88.1 Allergy status to other antibiotic agents; Z88.6 Allergy status to analgesic agent; Z88.8 Allergy status to other drugs, medicaments and biological substances
CPT/HCPCS: 85025; 36415; 81015; 83690; 80053; 74176; 51702; 96374; 99284; J2405; 87086; 87088

== ENCOUNTER 2022-09-01 11:04 | Inpatient (IN) | payer OTHER, BC ==
--- OUTSIDE RECORDS SUMMARY | 2022-09-01 11:19 | XMS REPORT | Continuity of Care Document ---
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 st MG tablet 18:12: mg total) Hos nubia 11 by mouth l daily. pantoprazol 2021-10- No 40mg QD Take 40 mg [facility] e 10-[address] (PROTONIX) 16:58: 00:00 daily. Hosp naye 40 MG EC 50 :00 l tablet pantoprazol 2021-10 Yes 40mg Q.5D Take 1 Meth aiden e 10-27 tablet (40 st (PROTONIX) 00:00: mg total) Ho spita 40 MG EC 00 by mouth 2 l tablet (two) times a day. acetaminoph 2021- [place] [id number] 1{tbl} Q.5D Take 1 [facility] en-codeine 06-30 09-[address] (TYLENOL 00:00: 04:59 mouth 2 Hospi ta WITH 00 :00 (two) l CODEINE #3) times a 300-30 mg day for 10 per tablet days .chronic pain. acetamin[place] 2021- [place] [id number] 1{tbl} Q.5D Take 1 [facility] en-codeine 06-[address] (TYLENOL 00:00: 00:00 mouth 2 Hospi ta WITH 00 :00 (two) l CODEINE #3) times a 300-30 mg day for 10 per tablet days .acute pain. methocarbam 2021- No 500mg Q.25D Take 500 [facility] oL 06-24- mg by st (ROBAXIN) 18:56: 00:00 mouth 4 Hosp naye 500 MG 38 :00 (four) l tablet times a day. apixaban 2021- No 2.5mg Q.5D Take 2.5 Met hodi (ELIQUIS) 5 06-[address] mg tablet 18:51: 00:00 mouth 2 Hosp naye 03 :00 (two) l times a day. sevelamer 2021- No 1600mg Q.07506994 Take 1,600 [facility] (RENVELA) 06-[id number] 800 mg 18:50: 00:00 3D mouth 3 Hospita tablet 58 :00 (three) l times a day with meals. oxyCODONE 2021- [place] [id number] 5mg Q4H Take 5 mg M ethodi (ROXICODONE 06-[address] ) 5 MG 18:50: 00:00 every 4 Hospita immediate 30 :00 (four) l release hours as tablet needed for moderate pain .acute pain. tiZANidine 0 Yes 4mg Q.5D Take 1 Metho di (ZANAFLEX) -01 tablet (4 st 4 MG tablet 00:00: mg total) H ospita 00 by mouth 2 l (two) times a day as needed for muscle spasms. promethazin 2021-0 Yes 25mg Q6H Take 1 Meth aiden e 8-01 tablet (25 st (PHENERGAN) 00:00: mg total) H ospita 25 MG 00 by mouth l tablet every 6 (six) hours as needed for vomiting or nausea. promethazin 2021-0 Yes 50mg Q.72414476 Take 1 Method[facility] e 7-28 [id number] tablet (50 st (PHENERGAN) 00:00: 3D mg total) H ospita 50 MG 00 by mouth 3 l tablet (three) times a day as needed for nausea or vomiting. diclofenac Yes 75mg Q.5D Take 1 Metho di (VOLTAREN) 7-26 tablet (75 st 75 MG EC 00:00: mg total) Hosp naye tablet 00 by mouth 2 l (two) times a day. fluconazole Yes 150mg Q7D Take 1 Met hodi (DIFLUCAN) 7-[address] 150 MG 00:00: (150 mg Hospita tablet 00 total) by l mouth once a week. On Sunday DULoxetine 2021- No 60mg QD Take 60 mg [facility] (CYMBALTA) 04-[address] 60 MG 18:01: 00:00 daily. Hospita capsule 54 :00 l gabapentin 2021- No 300mg Q.5D Take 300 M ethodi (NEURONTIN) 04-29-[address] 100 mg 18:01: 00:00 mouth 2 Hospita capsule 54 :00 (two) l times a day. allopurinoL 2021- No 100mg QD Take 100 [facility] (ZYLOPRIM) 04-29-[address] 100 MG 18:01: 00:00 mouth Hospita tablet 54 :00 daily. l Zithromax Yes See MemApportable Z-Gómez 250 6-29 Instructio l mg oral 21:14: ns, Take 2 Herm connie tablet 00 tablets by mouth the first day then 1 tablet by mouth days 2-5. (Pt is on hemodialys is)., X 5 day, # 6 tab, 0 Refill(s), Pharmacy: [facility], 170.18, cm, 04/19/22 14:52:00 CDT, Height, 106.818, kg, 04/19/22 14... Zithromax Yes See Memoria Z-Gómez 250 6-29 Instructio l mg oral 21:14: ns, Take 2 Herm connie tablet 00 tablets by mouth the first day then 1 tablet by mouth days 2-5. (Pt is on hemodialys is)., X 5 day, # 6 tab, 0 Refill(s), Pharmacy: [facility] [place], 170.18, cm, 04/19/22 14:52:00 CDT, Height, 106.818, kg, 04/19/22 14... Zithromax 2-0 Yes See Memoria Z-Gómez 250 6-29 Instructio l mg oral 21:14: ns, Take 2 Herm connie tablet 00 tablets by mouth the first day then 1 tablet by mouth days 2-5. (Pt is on hemodialys is)., X 5 day, # 6 tab, 0 Refill(s), Pharmacy: [facility] Pharm[facility] [place], 170.18, cm, 04/19/22 14:52:00 CDT, Height, 106.818, kg, 04/19/22 14... Velphoro 2022-0 Yes 500 mg, Memori a 6-29 CHEW, l 20:13: Daily, Denis 00 take with food, 0 Refill(s) Velphoro 2022-0 Yes 500 mg, Memori a 6-29 CHEW, l 20:13: Daily, Wisner 00 take with food, 0 Refill(s) Velphoro 2022-0 Yes 500 mg, Memori a 6-29 CHEW, l 20:13: Daily, Denis 00 take with food, 0 Refill(s) sevelamer 2-0 Yes 2,400 mg = Me moria carbonate 6-29 3 tab, PO, l 800 mg oral 20:12: TID-Meals, Denis tablet 00 # 270 tab, 0 Refill(s) sevelamer 2022-0 Yes 2,400 mg = Me moria carbonate 6-29 3 tab, PO, l 800 mg oral 20:12: TID-Meals, Wisner tablet 00 # 270 tab, 0 Refill(s) sevelamer 2022-0 Yes 2,400 mg = Me moria carbonate 6-29 3 tab, PO, l 800 mg oral 20:12: TID-Meals, Denis tablet 00 # 270 tab, 0 Refill(s) pantoprazol 2-0 Yes 40 mg = 1 M emoria e 40 mg 6-29 tab, PO, l oral 20:11: Daily, 0 Wisner enteric 00 Refill(s) coated tablet pantoprazol 2022-0 Yes 40 mg = 1 M emoria e 40 mg 6-29 tab, PO, l oral 20:11: Daily, 0 Denis enteric 00 Refill(s) coated tablet pantoprazol 2021-0 Yes 40 mg = 1 M emoria e 40 mg 6-29 tab, PO, l oral 20:11: Daily, 0 Wisner enteric 00 Refill(s) coated tablet oxyCODONE 5 0 Yes 5 mg = 1 Me moria mg oral 6-29 tab, PO, l tablet, 20:10: Q4H, PRN Vicente n immediate 00 Pain, prn, release 0 Refill(s) oxyCODONE 5 2021-0 Yes 5 mg = 1 Me moria mg oral 6-29 tab, PO, l tablet, 20:10: Q4H, PRN Vicente n immediate 00 Pain, prn, release 0 Refill(s) oxyCODONE 5 2021-0 Yes 5 mg = 1 Me moria mg oral 6-29 tab, PO, l tablet, 20:10: Q4H, PRN Vicente n immediate 00 Pain, prn, release 0 Refill(s) ondansetron 2021-0 Yes 4 mg [...] 20:07: BID, 0 Denis tablet 00 Refill(s) metoprolol 2021-0 Yes 25 mg = 1 Me moria tartrate 25 6-29 tab, PO, l mg oral 20:07: BID, 0 Denis tablet 00 Refill(s) metoprolol 2021-0 Yes 25 mg = 1 Me moria tartrate 25 6-29 tab, PO, l mg oral 20:07: BID, 0 Wisner tablet 00 Refill(s) methocarbam 2021-0 Yes 250 mg = Me moria ol 500 mg 6-29 0.5 tab, l oral tablet 20:05: PO, TID, 0 Wisner 00 Refill(s) methocarbam 2021-0 Yes 250 mg = Me moria ol 500 mg 6-29 0.5 tab, l oral tablet 20:05: PO, TID, 0 Denis 00 Refill(s) methocarbam 2021-0 Yes 250 mg = Me moria ol 500 mg 6-29 0.5 tab, l oral tablet 20:05: PO, TID, 0 Denis 00 Refill(s) Alphagan P 2021-0 Yes 1 drp, Memor ia 0.1% 6-29 OPTH, Q12H l ophthalmic 20:04: Denis solution 00 folic acid 2021-0 Yes 1 mg, PO, Me moria 6-29 Daily, 0 l 20:04: Refill(s) Wisner Alphagan P 2021-0 Yes 1 drp, Memor ia 0.1% 6-29 OPTH, Q12H l ophthalmic 20:04: Wisner solution 00 folic acid 2021-0 Yes 1 mg, PO, Me moria 6-29 Daily, 0 l 20:04: Refill(s) Wisner Alphagan P 2021-0 Yes 1 drp, Memor ia 0.1% 04-19 OPTH, Q12H l ophthalmic 20:04: Wisner solution 00 folic acid Yes 1 mg, PO, Me moria 04-19 Daily, 0 l 20:04: Refill(s) Wisner 00 Oxygen Yes 1 btl, Memoria - MISC, l 20:03: Daily, 2 Denis 00 liters, 0 Refill(s) Oxygen Yes 1 btl, Memoria - MISC, l 20:03: Daily, 2 Wisner 00 liters, 0 Refill(s) Oxygen Yes 1 btl, Memoria - MISC, l 20:03: Daily, 2 Wisner 00 liters, 0 Refill(s) Eliquis 2.5 Yes 2.5 mg, Mem oria mg oral 6- PO, Q12H, l tablet 20:02: tab, 0 Wisner 00 Refill(s) Eliquis 2.5 0 Yes 2.5 mg, Mem oria mg oral 6-29 PO, Q12H, l tablet 20:02: tab, 0 Denis 00 Refill(s) Eliquis 2.5 0 Yes 2.5 mg, Mem oria mg oral 6-29 PO, Q12H, l tablet 20:02: tab, 0 Wisner 00 Refill(s) doxycycline 2021- No 200mg Q.5D Take 200 [facility] (VIBRAMYCIN 04-16- mg by ) 100 MG 13:07: 00:00 mouth 2 Hospi ta capsule 01 :00 (two) l times a day. Take 200mg (x2 100mg capsules). Per patient started taking March 29, 2022 glucosam/ch 2021- No 1{tbl} Q.5D Take 1 M ethodi on-msm1/C/m 04-16 tablet by roly/bronson 13:07: 00:00 mouth 2 Hospi ta (OSTEO 01 :00 (two) l BI-FLEX times a TRIPLE day. STRENGTH ORAL) NON 2021- No 1{capsu QD Take 1 [facility] FORMULARY 6-26 06-25 le} capsule by st 13:07: 00:00 mouth Hospita 01 :00 nightly. l Patient takes young living probiotic with 17 billion active cultures folic acid 2021- No 1mg QD Take 1 Meth aiden (FOLVITE) 1 04-15 tablet (1 st MG tablet 00:00: 04:59 mg total) Ho spita 00 :00 by mouth l daily for 30 days. methocarbam 2021- No 250mg Q.40620330 Take 0.5 [facility] oL 04-[id number] (ROBAXIN) 00:00: 04:59 3D (250 mg Hosp naye 500 MG 00 :00 total) by l tablet mouth 3 (three) times a day for 7 days. nitazoxanid 2021- No 500mg Q.5D Take 1 Me thodi e (ALINIA) 04-[address] 500 MG 00:00: 04:59 (500 mg Hospita tablet 00 :00 total) by l mouth 2 (two) times a day for 7 days. oxyCODONE 2021- No [id number] 5mg Q4H Take 1 Meth aiden (ROXICODONE 04-15 tablet (5 st ) 5 MG 00:00: 04:59 mg total) Hospi ta immediate 00 :00 by mouth l release every 4 tablet (four) hours as needed for severe pain for up to 20 doses .acute pain. Max Daily Amount: 30 mg tizanidine Yes 4 mg = 1 Mem oria 4 mg oral 5-16 tab, PO, l tablet 18:09: Bedtime, Denis 00 PRN NEEDED FOR MUSCLE SPASM, # 15 tab, 0 Refill(s), Pharmacy: [facility] #[id number], 165.1, cm, 10/17/21 15:23:00 PLAY LEADER, Height, 107.301, kg, 10/17/21 15:23:00 PLAY LEADER, Weight tizanidine 2021-0 Yes 4 mg = 1 Mem oria 4 mg oral 5-16 tab, PO, l tablet 18:09: Bedtime, Wisner 00 PRN NEEDED FOR MUSCLE SPASM, # 15 tab, 0 Refill(s), Pharmacy: [facility] #[id number], 165.1, cm, 10/17/21 15:23:00 PLAY LEADER, Height, 107.301, kg, 10/17/21 15:23:00 PLAY LEADER, Weight tizanidine Yes 4 mg = 1 Mem oria 4 mg oral 5-16 tab, PO, l tablet 18:09: Bedtime, Wisner 00 PRN NEEDED FOR MUSCLE SPASM, # 15 tab, 0 Refill(s), Pharmacy: [facility] #[id number], 165.1, cm, 10/17/21 15:23:00 PLAY LEADER, Height, 107.301, kg, 10/17/21 15:23:00 PLAY LEADER, Weight nitrofurant 2021- No 100mg Q.5D Take 1 Me thodi oin, 12-30 03-[address] macrocrysta 00:00: 04:59 (100 mg Ho spita l-monohydra 00 :00 total) by l te, mouth 2 (MACROBID) (two) 100 MG times a capsule day for 3 days. lidocaine 2021- No 1{patch Q24H Place 1 M ethodi (LIDODERM) 12-28-09 } patch on st 5 % 00:00: 04:59 the skin Hospita 00 :00 in the l morning for 30 days. Remove & Discard patch within 12 hours or as directed by MD. traMADoL 2021- [place] [address] 50mg Q.55597223 Take 1 [facility] (ULTRAM) 50 12-28 03-20 [id number] tablet (50 st mg tablet 00:00: 04:59 3D mg total) Ho spita 00 :00 by mouth l as needed in the morning and 1 tablet (50 mg total) as needed at noon and 1 tablet (50 mg total) as needed in the evening for moderate pain. Do all this for up to 10 days.acute pain. metoprolol Yes 25mg Q.5D Take 25 mg M ethodi tartrate 2-[address] (LOPRESSOR) 00:00: (two) Hospi ta 25 mg 00 times a l tablet day. Ondansetron Yes 4 mg = 1 Me moria 4 MG Oral 1-07 tab, PO, l Tablet 22:01: BID, X 5 Denis [Zofran] day, # 10 tab, 0 Refill(s), Pharmacy: [facility] #[id number], 165.1, cm, 10/17/21 15:23:00 PLAY LEADER, Height, 107.301, kg, 10/17/21 15:23:00 PLAY LEADER, Weight Ondansetron 2-0 Yes 4 mg = 1 Me moria 4 MG Oral 1-07 tab, PO, l Tablet 22:01: BID, X 5 Denis [Zofran] day, # 10 tab, 0 Refill(s), Pharmacy: [facility] #[id number], 165.1, cm, 10/17/21 15:23:00 PLAY LEADER, Height, 107.301, kg, 10/17/21 15:23:00 PLAY LEADER, Weight Ondansetron 2021-0 Yes 4 mg = 1 Me moria 4 MG Oral 1-07 tab, PO, l Tablet 22:01: BID, X 5 Denis [Zofran] day, # 10 tab, 0 Refill(s), Pharmacy: [facility] STORE #[id number], 165.1, cm, 10/17/21 15:23:00 PLAY LEADER, Height, 107.301, kg, 10/17/21 15:23:00 PLAY LEADER, Weight atorvastati 2020-10 Yes 10 mg = 1 M emoria n 10 mg 2-27 tab, PO, l oral tablet 21:45: Bedtime, # Wisner 00 90 tab, 0 Refill(s), Pharmacy: [facility] STORE #[id number], 165.1, cm, 10/17/21 15:23:00 PLAY LEADER, Height, 107.301, kg, 10/17/21 15:23:00 PLAY LEADER, Weight atorvastati 2020-10 Yes 10 mg = 1 M emoria n 10 mg 2-27 tab, PO, l oral tablet 21:45: Bedtime, # Wisner 00 90 tab, 0 Refill(s), Pharmacy: [facility] STORE #[id number], 165.1, cm, 10/17/21 15:23:00 PLAY LEADER, Height, 107.301, kg, 10/17/21 15:23:00 PLAY LEADER, Weight atorvastati 2020-10 Yes 10 mg = 1 M emoria n 10 mg 2-27 tab, PO, l oral tablet 21:45: Bedtime, # Denis 00 90 tab, 0 Refill(s), [id number], 165.1, cm, 10/17/21 15:23:00 PLAY LEADER, Height, 107.301, kg, 10/17/21 15:23:00 PLAY LEADER, Weight tizanidine 2020-10 Yes 4 mg = 1 Mem oria 4 mg oral 2-27 tab, PO, l tablet 21:40: Bedtime, Denis 00 PRN for muscle spasm, # 30 tab, 0 Refill(s), [id number], 165.1, cm, 10/17/21 15:23:00 PLAY LEADER, Height, 107.301, kg, 10/17/21 15:23:00 PLAY LEADER, Weight Acetaminoph 2020-10 Yes 1 tab, PO, Memoria en 325 MG / 2-27 Q12H, PRN l tramadol 21:40: for pain, Herm connie hydrochlori 00 X 15 day, de 37.5 MG # 30 tab, Oral Tablet 0 [Ultracet] Refill(s), [id number], 165.1, cm, 10/17/21 15:23:00 PLAY LEADER, Height, 107.301, kg, 10/17/21 15:23:00 PLAY LEADER, Weight tizanidine 2020-10 Yes 4 mg = 1 Mem oria 4 mg oral 2-27 tab, PO, l tablet 21:40: Bedtime, Denis 00 PRN for muscle spasm, # 30 tab, 0 Refill(s), [id number], 165.1, cm, 10/17/21 15:23:00 PLAY LEADER, Height, 107.301, kg, 10/17/21 15:23:00 PLAY LEADER, Weight Acetaminoph 2020-10 Yes 1 tab, PO, Memoria en 325 MG / 2-27 Q12H, PRN l tramadol 21:40: for pain, Herm connie hydrochlori 00 X 15 day, de 37.5 MG # 30 tab, Oral Tablet 0 [Ultracet] Refill(s), Pharmacy: [facility] STORE #[id number], 165.1, cm, 10/17/21 15:23:00 PLAY LEADER, Height, 107.301, kg, 10/17/21 15:23:00 PLAY LEADER, Weight tizanidine 2020-10 Yes 4 mg = 1 Mem oria 4 mg oral 2-27 tab, PO, l tablet 21:40: Bedtime, Denis 00 PRN for muscle spasm, # 30 tab, 0 Refill(s), Pharmacy: [facility] STORE #[id number], 165.1, cm, 10/17/21 15:23:00 PLAY LEADER, Height, 107.301, kg, 10/17/21 15:23:00 PLAY LEADER, Weight Acetaminoph 2020-10 Yes 1 tab, PO, Memoria en 325 MG / 2-27 Q12H, PRN l tramadol 21:40: for pain, Herm connie hydrochlori 00 X 15 day, de 37.5 MG # 30 tab, Oral Tablet 0 [Ultracet] Refill(s), Pharmacy: [facility] STORE #[id number], 165.1, cm, 10/17/21 15:23:00 PLAY LEADER, Height, 107.301, kg, 10/17/21 15:23:00 PLAY LEADER, Weight sevelamer 2020-10 Yes 1,600 mg = [...] Ointment 00 22 gm, 0 Refill(s), [id number], 165.1, cm, 09/09/21 14:08:00 PLAY LEADER, Height, 136.42, kg, 09/09/21 14:08:00 PLAY LEADER, Weight Mupirocin 2020-10 Yes 1 appl, Memor ia 0.02 MG/MG 1-22 TOP, TID, l Topical 23:21: X 5 day, # Herm connie Ointment 00 22 gm, 0 Refill(s), Pharmacy: [facility] STORE #[id number], 165.1, cm, 09/09/21 14:08:00 PLAY LEADER, Height, 136.42, kg, 09/09/21 14:08:00 PLAY LEADER, Weight Mupirocin 2020-10 Yes 1 appl, Memor ia 0.02 MG/MG -22 TOP, TID, l Topical 23:21: X 5 day, # Herm connie Ointment 00 22 gm, 0 Refill(s), Pharmacy: [facility] STORE #[id number], 165.1, cm, 09/09/21 14:08:00 PLAY LEADER, Height, 136.42, kg, 09/09/21 14:08:00 PLAY LEADER, Weight bumetanide 2020-10 Yes 2 mg = 1 Mem oria 2 mg oral 1-19 tab, PO, l tablet 21:11: Daily, # Wisner 00 30 tab, 0 Refill(s) bumetanide 2020-10 Yes 2 mg = 1 Mem oria 2 mg oral 1-19 tab, PO, l tablet 21:11: Daily, # Wisner 00 30 tab, 0 Refill(s) bumetanide 2020-10 Yes 2 mg = 1 Mem oria 2 mg oral 1-19 tab, PO, l tablet 21:11: Daily, # Wisner 00 30 tab, 0 Refill(s) allopurinol 2020-10 [...] 21:10: Bedtime, 0 Herm connie 00 Refill(s) midodrine 2020-10 Yes 10mg Q.85497710 Take 10 mg [facility] (PROAMATINE 1-13 [id number] [address] mouth 3 st ) 10 MG 00:00: 3D (three) Hospita tablet 00 times a l day. BUMETanide 2020-10 Yes 2mg QD Take 2 mg Me thodi (BUMEX) 2 1-[address] MG tablet 00:00: every Hospita 00 morning. l digOXIN 2020-10 Yes 125ug Q.48769031 Take 125 [facility] (LANOXIN) 1-[id number] 125 mcg 00:00: 3W mouth 3 Hospita (0.125 mg) 00 (three) l tablet times a week. On dialysis days, , Sunday carvediloL 2020-10- No Method i (COREG) 1-12 02-28 st 3.125 MG 00:00: 00:00 Hospita tablet 00 :00 l ipratropium 2020-10- No [id number] .5mg Q.25D Take 2.5 Method[facility] (ATROVENT) 0-05 02-28 mL (0.[address] 0.02 % 00:00: 00:00 total) by Hospi ta nebulizer 00 :00 nebulizati l solution on 4 (four) times a day. QUEtiapine Yes 1 tablet, Me moria 50 mg oral 3-30 once a l tablet 13:55: day, 0 Denis 00 Refill(s) torsemide 2021-0 Yes 1 tablet, Mem oria 20 mg oral 3-30 twice a l tablet 13:55: day, 0 Denis 00 Refill(s) QUEtiapine 2020-0 Yes 1 tablet, Me moria 50 mg oral 3-30 once a l tablet 13:55: day, 0 Wisner 00 Refill(s) torsemide 2020-0 Yes 1 tablet, Mem oria 20 mg oral 3-30 twice a l tablet 13:55: day, 0 Wisner 00 Refill(s) QUEtiapine 2020-0 Yes 1 tablet, Me moria 50 mg oral 3-30 once a l tablet 13:55: day, 0 Wisner 00 Refill(s) torsemide 2020-0 Yes 1 tablet, Mem oria 20 mg oral 3-30 twice a l tablet 13:55: day, 0 Denis 00 Refill(s) potassium 2020-0 Yes 1 tablet, Mem oria chloride 20 3-30 once a l mEq oral 13:54: day, 0 Wisner tablet, 00 Refill(s) extended release (KCL) potassium 2020-0 Yes 1 tablet, Mem oria chloride 20 3-30 once a l mEq oral 13:54: day, 0 Denis tablet, 00 Refill(s) extended release (KCL) potassium 2020-0 Yes 1 tablet, Mem oria chloride 20 3-30 once a l mEq oral 13:54: day, 0 Denis tablet, 00 Refill(s) extended release (KCL) allopurinol 2020-0 Yes 1/2 Memori a 300 mg oral 3-30 tablet, l tablet 13:53: once a Denis 00 day, 0 Refill(s) carvedilol 2020-0 Yes 1 tablet, Me moria 3.125 mg 3-30 twice a l oral tablet 13:53: day, 0 Herm connie 00 Refill(s) Digoxin 2020-0 Yes 1 tablet, Memor ia 0.125 MG 3-30 once a l Oral Tablet 13:53: day, 0 Herm connie 00 Refill(s) DULoxetine 2020-0 Yes 1 capsule, M emoria 60 mg oral 3-30 once a l delayed 13:53: day, 0 Wisner release 00 Refill(s) capsule apixaban 5 0 Yes 1 tablet, Me moria MG Oral 3-30 twice a l Tablet 13:53: day, 0 Denis [Eliquis] 00 Refill(s) gabapentin 0 Yes 1 capsule, M emoria 300 MG Oral 3-30 twice a l Capsule 13:53: day, 0 Denis 00 Refill(s) metoprolol 0 Yes 1 tablet, Me moria tartrate 50 3-30 Twice a l mg oral 13:53: day, 0 Wisner tablet 00 Refill(s) midodrine 5 Yes 1 tablet, M emoria mg oral 3-30 twice a l tablet 13:53: day, 0 Wisner 00 Refill(s) allopurinol Yes 1/2 Memori a [...] once a l delayed 13:53: day, 0 Wisner release 00 Refill(s) capsule apixaban 5 Yes [...] 0 Denis tablet 00 Refill(s) midodrine 5 0 Yes 1 tablet, M emoria mg oral 3-30 twice a l tablet 13:53: day, 0 Wisner 00 Refill(s) allopurinol Yes 1/2 Memori a 300 mg oral 3-30 tablet, l tablet 13:53: once a Wisner 00 day, 0 Refill(s) carvedilol Yes 1 [...] twice a l Tablet 13:53: day, 0 Wisner [Eliquis] 00 Refill(s) gabapentin Yes 1 capsule, M emoria 300 MG Oral 3-30 twice a l Capsule 13:53: day, 0 Wisner 00 Refill(s) metoprolol Yes 1 tablet, Me moria tartrate 50 3-30 Twice a l mg oral 13:53: day, 0 Wisner tablet 00 Refill(s) midodrine 5 Yes 1 [...] 0 He rmann [Aldactone] 00 Refill(s) DULoxetine 2019-10 Yes 60 mg = 1 Me moria 60 mg oral 1-25 cap, PO, l delayed 17:17: Daily, # Vicente n release 00 30 cap, 0 capsule Refill(s) Spironolact 2019-10 Yes 25 mg = 1 M emoria one 25 MG 1-25 tab, PO, l Oral Tablet 17:17: Daily, 0 He rmann [Aldactone] 00 Refill(s) DULoxetine 2019-10 Yes 60 mg [...] DAILY, # 66 gm, 1 Refill(s), Pharmacy: [facility] #[id number], 170.18, cm, 12/16/19 14:42:00 PLAY LEADER, Height, 164.318, kg, 12/16/19 14:42:00 PLAY LEADER, Weight Mupirocin 2019-10 Yes See Memoria 0.02 MG/MG 0-13 Instructio l Topical 15:44: ns, APPLY Karen nn Ointment 00 EXTERNALLY TO THE AFFECTED AREA TWICE DAILY, # 66 gm, 1 Refill(s), Pharmacy: [facility] #[id number], 170.18, cm, 12/16/19 14:42:00 PLAY LEADER, Height, 164.318, kg, 12/16/19 14:42:00 PLAY LEADER, Weight Mupirocin 2019-10 Yes See Memoria 0.02 MG/MG 0-13 Instructio l Topical 15:44: ns, APPLY Karen nn Ointment 00 EXTERNALLY TO THE AFFECTED AREA TWICE DAILY, # 66 gm, 1 Refill(s), Pharmacy: [facility] #[id number], 170.18, cm, 12/16/19 14:42:00 PLAY LEADER, Height, 164.318, kg, 12/16/19 14:42:00 PLAY LE[employer]ER, Weight Nitrofurant 2020-0 Yes 100 mg = 1 Memoria oin 100 MG 8-09 cap, PO, l Oral 17:57: BID, X 10 Denis Capsule 00 day, # 20 [Macrobid] cap, 0 Refill(s), [id number], 170.18, cm, 12/16/19 14:42:00 PLAY LEADER, Height, 164.318, kg, 12/16/19 14:42:00 PLAY LEADER, Weight Nitrofurant 2020-0 Yes 100 mg = 1 Memoria oin 100 MG 8-09 cap, PO, l Oral 17:57: BID, X 10 Denis Capsule 00 day, # 20 [Macrobid] cap, 0 Refill(s), [id number], 170.18, cm, 12/16/19 14:42:00 PLAY LEADER, Height, 164.318, kg, 12/16/19 14:42:00 PLAY LEADER, Weight Nitrofurant 2020-0 Yes 100 mg = 1 Memoria oin 100 MG 8-09 cap, PO, l Oral 17:57: BID, X 10 Wisner Capsule 00 day, # 20 [Macrobid] cap, 0 Refill(s), [id number], 170.18, cm, 12/16/19 14:42:00 PLAY LEADER, Height, 164.318, kg, 12/16/19 14:42:00 PLAY LEADER, Weight lisinopril 2020-0 Yes 2.5 mg = 1 M emoria 2.5 mg oral 6-04 tab, PO, l tablet 23:26: Daily, # Wisner 00 30 tab, 2 Refill(s), called to pharmacy lisinopril 2020-0 Yes 2.5 mg = 1 M emoria 2.5 mg oral 6-04 tab, PO, l tablet 23:26: Daily, # Wisner 00 30 tab, 2 Refill(s), called to pharmacy lisinopril 2020-0 Yes 2.5 mg = 1 M emoria 2.5 mg oral 6-04 tab, PO, l tablet 23:26: Daily, # Wisner 00 30 tab, 2 Refill(s), called to pharmacy calcitriol 2020-0 Yes = 1 cap, Mem oria 0.25 mcg 5-20 PO, Daily, l oral 12:18: # 90 cap, Wisner capsule 00 1 Refill(s), Pharmacy: [facility] [place] #[id number] calcitriol 2020-0 Yes = 1 cap, Mem oria 0.25 mcg 5-20 PO, Daily, l oral 12:18: # 90 cap, Wisner capsule 00 1 Refill(s), Pharmacy: [facility] [facility] [place] #[id number] calcitriol 2020-0 Yes = 1 cap, Mem oria 0.25 mcg 5-20 PO, Daily, l oral 12:18: # 90 cap, Wisner capsule 00 1 Refill(s), Pharmacy: [facility] [employer] [facility] #[id number] calcitriol 2020-0 Yes = 1 cap, Mem oria 0.25 mcg 4-16 PO, Daily, l oral 16:37: # 90 Denis capsule 47 unknown unit, Pharmacy: [facility] [employer] [facility] #[id number] calcitriol 2020-0 Yes = 1 cap, Mem oria 0.25 mcg 4-16 PO, Daily, l oral 16:37: # 90 Wisner capsule 47 unknown unit, [facility][id number] calcitriol 2020-0 Yes = 1 cap, Mem oria 0.25 mcg 4-16 PO, Daily, l oral 16:37: # 90 Wisner capsule 47 unknown unit, Pharmacy: [facility] [employer] [facility] #[id number] Furosemide 2020-0 Yes = 1 tab, Mem oria 40 MG Oral 4-13 PO, Every l Tablet 20:06: Other Day, Karen nn 19 # 45 tab, Pharmacy: [facility] [employer] STORE #[id number] Furosemide 2020-0 Yes = 1 tab, Mem oria 40 MG Oral 4-13 PO, Every l Tablet 20:06: Other Day, Karen nn 19 # 45 tab, Pharmacy: [facility] [employer] STORE #[id number] Furosemide 2020-0 Yes = 1 tab, Mem oria 40 MG Oral 4-13 PO, Every l Tablet 20:06: Other Day, Karen nn 19 # 45 tab, Pharmacy: [facility] [employer] STORE #[id number] prednisolon 2020-0 Yes 1 drop in M emoria e acetate 4-10 each eye, l 10 MG/ML 20:53: once Wisner Ophthalmic 00 daily, 0 Suspension Refill(s) bromfenac 2020-0 Yes 1 drop in Mem oria 0.7 MG/ML 4-10 right eye, l Ophthalmic 20:53: once Denis Solution 00 daily, 0 [Prolensa] Refill(s) prednisolon 2020-0 Yes 1 drop in M emoria e acetate 4-10 each eye, l 10 MG/ML 20:53: once Wisner Ophthalmic 00 daily, 0 Suspension Refill(s) bromfenac 2020-0 Yes 1 drop in Mem oria 0.7 MG/ML 4-10 right eye, l Ophthalmic 20:53: once Denis Solution 00 daily, 0 [Prolensa] Refill(s) prednisolon 2020-0 Yes 1 drop in M emoria e acetate 4-10 each eye, l 10 MG/ML 20:53: once Wisner Ophthalmic 00 daily, 0 Suspension Refill(s) bromfenac 2020-0 Yes 1 drop in Mem oria 0.7 MG/ML 4-10 right eye, l Ophthalmic 20:53: once Denis Solution 00 daily, 0 [Prolensa] Refill(s) Furosemide 2020-0 Yes = 1 tab, Mem oria 40 MG Oral 1-23 PO, Every l Tablet 15:13: Other Day, Karen robb 34 # 45 tab, Pharmacy: [facility] #[id number] Furosemide 2020-0 Yes = 1 tab, Mem oria 40 MG Oral 1-23 PO, Every l Tablet 15:13: Other Day, Karen robb 34 # 45 tab, Pharmacy: [facility] #[id number] Furosemide 2020-0 Yes = 1 tab, Mem oria 40 MG Oral 1-23 PO, Every l Tablet 15:13: Other Day, Karen robb 34 # 45 tab, Pharmacy: [facility] ST[facility] #[id number] Mupirocin 2018-10 Yes See Memoria 0.02 MG/MG 2-27 Instructio l Topical 19:11: ns, # 66 Vicente n Ointment 15 gm, APPLY EXTERNALLY TO THE AFFECTED AREA TWICE DAILY, Pharmacy: [facility] ST[facility] #[id number] Mupirocin 2018-10 Yes See Memoria 0.02 MG/MG 2-27 Instructio l Topical 19:11: ns, # 66 Vicente n Ointment 15 gm, APPLY EXTERNALLY TO THE AFFECTED AREA TWICE DAILY, Pharmacy: [facility] [employer] STORE #[id number] Mupirocin 2018-10 Yes See Memoria 0.02 MG/MG 2-27 Instructio l Topical 19:11: ns, # 66 Vicente n Ointment 15 gm, APPLY EXTERNALLY TO THE AFFECTED AREA TWICE DAILY, Pharmacy: [facility] [employer] STORE #[id number] Nitrofurant 2018-10 Yes 100 mg = 1 Memoria oin 100 MG 2-13 cap, PO, l Oral 01:44: BID, X 5 Wisner Capsule 00 day, # 10 [[place]rod[place] cap, 0 n] Refill(s), Pharmacy: [facility] #[id number] Nitrofurant 2018-10 Yes 100 mg = 1 Memoria oin 100 MG 2-13 cap, PO, l Oral 01:44: BID, X 5 Denis Capsule 00 day, # 10 [[place]rod[place] cap, 0 n] Refill(s), Pharmacy: [facility] [employer] [facility] #[id number] Nitrofurant 2018-10 Yes 100 mg = 1 Memoria oin 100 MG 2-13 cap, PO, l Oral 01:44: BID, X 5 Wisner Capsule 00 day, # 10 [[place]rod[place] cap, 0 n] Refill(s), Pharmacy: [facility] [employer] [facility] #[id number] apixaban 5 2018-10 Yes 5 mg, PO, [...] ermann Bitartrate 00 5 MG Oral Tablet [Trail 5/325] apixaban 5 2018-10 Yes 5 mg, PO, [...] ermann Bitartrate 00 5 MG Oral Tablet [Trail 5/325] apixaban 5 2018-10 Yes 5 mg, PO, [...] ermann Bitartrate 00 5 MG Oral Tablet [Trail 5/325] calcitriol 2018-10 Yes = 1 cap, Mem oria 0.25 mcg 0-11 PO, Daily, l oral 21:10: # 90 Denis capsule 30 unknown unit, Pharmacy: [facility] [employer] [facility] #[id number] calcitriol 2018-10 Yes = 1 cap, Mem oria 0.25 mcg 0-11 PO, Daily, l oral 21:10: # 90 Denis capsule 30 unknown unit, Pharmacy: [facility] [employer] [facility] #[id number] calcitriol 2018-10 Yes = 1 cap, Mem oria 0.25 mcg 0-11 PO, Daily, l oral 21:10: # 90 Denis capsule 30 unknown unit, Pharmacy: [facility] [employer] [facility] #[id number] gabapentin 2018- Yes 300 mg = 1 M emoria 300 MG Oral 9-27 cap, PO, l Capsule 20:54: BID, # 180 Herm connie 00 cap, 3 Refill(s), called to pharmacy gabapentin 2018- Yes 300 mg = 1 M emoria 300 MG Oral 9-27 cap, PO, l Capsule 20:54: BID, # 180 Herm connie 00 cap, 3 Refill(s), called to pharmacy gabapentin Yes 300 mg = 1 M emoria 300 MG Oral 9-27 cap, PO, l Capsule 20:54: BID, # 180 Herm connie 00 cap, 3 Refill(s), called to pharmacy allopurinol 2019- Yes = 1 tab, Me moria 300 mg oral 8-17 PO, Daily, l tablet 02:39: # 90 tabVicente n 31 Pharmacy: [facility] [employer] [facility] #[id number] allopurinol 2018- Yes = 1 tab, Me moria 300 mg oral 8-17 PO, Daily, l tablet 02:39: # 90 tabVicente n 31 Pharmacy: [facility] [employer] [facility] #[id number] allopurinol 2018- Yes = 1 tab, Me moria 300 mg oral 8-17 PO, Daily, l tablet 02:39: # 90 tabVicente n 31 Pharmacy: [facility] [employer] STORE #[id number] QUEtiapine Yes 50 mg = 1 Me moria 50 mg oral 6-06 tab, PO, l tablet 15:28: Bedtime, # Karen nn 00 30 tab, 1 Refill(s) QUEtiapine Yes 50 mg = 1 Me moria 50 mg oral 6-06 tab, PO, l tablet 15:28: Bedtime, # Karen nn 00 30 tab, 1 Refill(s) QUEtiapine Yes 50 mg = 1 Me [...] hours, # 6 tab, 0 Refill(s) eletriptan Yes 40 mg = 1 Me moria 40 mg oral 6-06 tab, PO, l tablet 15:26: Daily, PRN Karen nn 00 for migraine headache, may repeat dose once in 2 hours, # 6 tab, 0 Refill(s) eletriptan Yes 40 mg = 1 Me moria 40 mg oral 6-06 tab, PO, l tablet 15:26: Daily, PRN Karen nn 00 for migraine headache, may repeat dose once in 2 hours, # 6 tab, 0 Refill(s) atorvastati Yes See Memori a n 40 mg 3-14 Instructio l oral tablet 15:07: ns, TAKE 1 Wisner 35 TABLET BY MOUTH EVERY NIGHT AT BEDTIME, # 90 tab, 1 Refill(s), Pharmacy: [facility] [id number] atorvastati Yes See Memori a n 40 mg 3-14 Instructio l oral tablet 15:07: ns, TAKE 1 Denis 35 TABLET BY MOUTH EVERY NIGHT AT BEDTIME, # 90 tab, 1 Refill(s), Pharmacy: [facility] [id number] atorvastati Yes See Memori a n 40 mg 3-14 Instructio l oral tablet 15:07: ns, TAKE 1 Wisner 35 TABLET BY MOUTH EVERY NIGHT AT BEDTIME, # 90 tab, 1 Refill(s), Pharmacy: [facility] [address] [place] [address] amLODIPine Yes See Memoria 5 mg oral 3-14 Instructio l tablet 15:07: ns, TAKE 1 Karen nn 33 TABLET BY MOUTH EVERY DAY, # 90 tab, 1 Refill(s), Pharmacy: [facility] [address] [place] [address] amLODIPine Yes See Memoria 5 mg oral 3-14 Instructio l tablet 15:07: ns, TAKE 1 Karen nn 33 TABLET BY MOUTH EVERY DAY, # 90 tab, 1 Refill(s), Pharmacy: [facility] [employer] [address] [place] [address] amLODIPine Yes See Memoria 5 mg oral 3-14 Instructio l tablet 15:07: ns, TAKE 1 Karen nn 33 TABLET BY MOUTH EVERY DAY, # 90 tab, 1 Refill(s), Pharmacy: [facility] [employer] [address] [place] [address] lisinopril Yes See Memoria 5 mg oral 8-21 Instructio l tablet 19:00: ns, TAKE 1 Karen nn 30 TABLET BY MOUTH DAILY, # 90 tab, 1 Refill(s), Pharmacy: [facility] [address] [place] [address] lisinopril Yes See Memoria 5 mg oral 8-21 Instructio l tablet 19:00: ns, TAKE 1 Karen nn 30 TABLET BY MOUTH DAILY, # 90 tab, 1 Refill(s), Pharmacy: [facility] [address] [place] [address] lisinopril Yes See Memoria 5 mg oral 8-21 Instructio l tablet 19:00: ns, TAKE 1 Karen nn 30 TABLET BY MOUTH DAILY, # 90 tab, 1 Refill(s), Pharmacy: [facility] [address] [place] [address] atorvastati Yes See Memori a n 40 mg 8-21 Instructio l oral tablet 18:50: ns, TAKE 1 Denis 45 TABLET BY MOUTH EVERY NIGHT AT BEDTIME, # 30 tab, 5 Refill(s), Pharmacy: [facility] [address] [place] [address] atorvastati Yes See Memori a n 40 mg 8-21 Instructio l oral tablet 18:50: ns, TAKE 1 Denis 45 TABLET BY MOUTH EVERY NIGHT AT BEDTIME, # 30 tab, 5 Refill(s), Pharmacy: [facility] [address] [place] [address] atorvastati Yes See Memori a n 40 mg 8-21 Instructio l oral tablet 18:50: ns, TAKE 1 Wisner 45 TABLET BY MOUTH EVERY NIGHT AT BEDTIME, # 30 tab, 5 Refill(s), Pharmacy: [facility] [address] [place] [address] amLODIPine Yes See Memoria 5 mg oral 8-21 Instructio l tablet 18:50: ns, TAKE 1 Karen nn 41 TABLET BY MOUTH EVERY DAY, # 30 tab, 5 Refill(s), Pharmacy: [facility] [address] [place] [address] amLODIPine Yes See Memoria 5 mg oral 8-21 Instructio l tablet 18:50: ns, TAKE 1 Karen nn 41 TABLET BY MOUTH EVERY DAY, # 30 tab, 5 Refill(s), Pharmacy: [facility] [address] [place] [address] amLODIPine Yes See Memoria 5 mg oral 8-21 Instructio l tablet 18:50: ns, TAKE 1 Karen nn 41 TABLET BY MOUTH EVERY DAY, # 30 tab, 5 Refill(s), Pharmacy: [facility] [address] [place] [address] lisinopril No See Memoria 5 mg oral 7-31 Instructio l tablet 15:28: ns, # 90 Wisner 34 tab, TAKE 1 TABLET BY MOUTH DAILY, Pharmacy: [facility] [address] [place] [address] lisinopril No See Memoria 5 mg oral 7-31 Instructio l tablet 15:28: ns, # 90 Wisner 34 tab, TAKE 1 TABLET BY MOUTH DAILY, Pharmacy: [facility] [address] [place] [address] lisinopril No See Memoria 5 mg oral 7-31 Instructio l tablet 15:28: ns, # 90 Denis 34 tab, TAKE 1 TABLET BY MOUTH DAILY, Pharmacy: [facility] [address] [place] [address] allopurinol No 300 mg = 1 Memoria 300 mg oral 5-10 tab, PO, l tablet 13:59: Daily, # Denis 00 90 tab, 1 Refill(s), Pharmacy: [facility] [address] [place] [address] allopurinol No 300 mg = 1 Memoria 300 mg oral 5-10 tab, PO, l tablet 13:59: Daily, # Denis 00 90 tab, 1 Refill(s), Pharmacy: [facility] [address] [place] [address] allopurinol No 300 mg = 1 Memoria 300 mg oral 5-10 tab, PO, l tablet 13:59: Daily, # Denis 00 90 tab, 1 Refill(s), Pharmacy: [place] [address] lisinopril No See Memoria 5 mg oral 5-01 Instructio l tablet 12:38: ns, # 90 Wisner 18 tab, TAKE 1 TABLET BY MOUTH DAILY, Pharmacy: [facility] [address] [place] [address] ALLOPURINOL Yes See Memori a 300MG 5-01 Instructio l TABLETS 12:38: ns, # 90 Vicente n 18 tab, TAKE 1 TABLET BY MOUTH DAILY, Pharmacy: [facility] [address] [place] [address] lisinopril No See Memoria 5 mg oral 5-01 Instructio l tablet 12:38: ns, # 90 Wisner 18 tab, TAKE 1 TABLET BY MOUTH DAILY, Pharmacy: [facility] [address] [place] [address] ALLOPURINOL Yes See Memori a 300MG 5-01 Instructio l TABLETS 12:38: ns, # 90 Vicente n 18 tab, TAKE 1 TABLET BY MOUTH DAILY, Pharmacy: [facility] [address] [place] [address] lisinopril No See Memoria 5 mg oral 5-01 Instructio l tablet 12:38: ns, # 90 Wisner 18 tab, TAKE 1 TABLET BY MOUTH DAILY, Pharmacy: [facility] [address] [place] [address] ALLOPURINOL Yes See Memori a 300MG 5-01 Instructio l TABLETS 12:38: ns, # 90 Vicente n 18 tab, TAKE 1 TABLET BY MOUTH DAILY, Pharmacy: [facility] [address] [place] [address] calcitriol Yes 0.25 Memoria 0.25 mcg 3-28 microgram l oral 13:49: = 1 cap, Denis capsule 00 PO, Daily, # 90 cap, 3 Refill(s), Pharmacy: [facility] [address] [place] [address] calcitriol Yes 0.25 Memoria 0.25 mcg 3-28 microgram l oral 13:49: = 1 cap, Wisner capsule 00 PO, Daily, # 90 cap, 3 Refill(s), Pharmacy: [facility] [address] [place] [address] calcitriol Yes 0.25 Memoria 0.25 mcg 3-28 microgram l oral 13:49: = 1 cap, Denis capsule 00 PO, Daily, # 90 cap, 3 Refill(s), Pharmacy: [place] [address] Mupirocin Yes 1 appl, Memor ia 0.02 MG/MG 3-21 TOP, BID, l Topical 15:37: 30 grams Vicente n Ointment 21 3each, # 3 ea, 1 Refill(s), Pharmacy: [place] [address] Mupirocin Yes 1 appl, Memor ia 0.02 MG/MG 3-21 TOP, BID, l Topical 15:37: 30 grams Vicente n Ointment 21 3each, # 3 ea, 1 Refill(s), Pharmacy: [place] [address] Mupirocin Yes 1 appl, Memor ia 0.02 MG/MG 3-21 TOP, BID, l Topical 15:37: 30 grams Vicente n Ointment 21 3each, # 3 ea, 1 Refill(s), Pharmacy: [place] [address] atorvastati Yes See Memori a n 40 mg 3-21 Instructio l oral tablet 15:36: ns, TAKE 1 Denis 22 TABLET BY MOUTH EVERY NIGHT AT BEDTIME, # 30 tab, 5 Refill(s), Pharmacy: [place] [address] atorvastati Yes See Memori a n 40 mg 3-21 Instructio l oral tablet 15:36: ns, TAKE 1 Denis 22 TABLET BY MOUTH EVERY NIGHT AT BEDTIME, # 30 tab, 5 Refill(s), Pharmacy: [place] [address] atorvastati Yes See Memori a n 40 mg 3-21 Instructio l oral tablet 15:36: ns, TAKE 1 Wisner 22 TABLET BY MOUTH EVERY NIGHT AT BEDTIME, # 30 tab, 5 Refill(s), Pharmacy: [place] [address] amLODIPine Yes See Memoria 5 mg oral 3-21 Instructio l tablet 15:36: ns, TAKE 1 Karen nn 18 TABLET BY MOUTH EVERY DAY, # 30 tab, 5 Refill(s), Pharmacy: [place] [address] amLODIPine 2018-0 Yes See Memoria 5 mg oral 3-21 Instructio l tablet 15:36: ns, TAKE 1 Karen nn 18 TABLET BY MOUTH EVERY DAY, # 30 tab, 5 Refill(s), Pharmacy: [facility] [address] [id number] amLODIPine Yes See Memoria 5 mg oral 3-21 Instructio l tablet 15:36: ns, TAKE 1 Karen nn 18 TABLET BY MOUTH EVERY DAY, # 30 tab, 5 Refill(s), Pharmacy: [facility] [id number] aspirin 81 Yes 81 mg = 1 [...] 3 mL, l mL 01:00: Soln, NEB, Wisner inhalation 00 Once, solution first dose 12/30/15 19:00:00 PLAY LEADER, stop date 12/30/15 19:00:00 PLAY LEADER Xopenex No Kyle K 0.63 mg = Mem oria 0.63 mg/3 3-11 Silvestre 3 mL, l mL 01:00: Soln, NEB, Wisner inhalation 00 Once, solution first dose 12/30/15 19:00:00 PLAY LEADER, stop date 12/30/15 19:00:00 PLAY LEADER Xopenex No Kyle K 0.63 mg = Mem oria 0.63 mg/3 3-11 Silvestre 3 mL, l mL 01:00: Soln, NEB, Wisner inhalation 00 Once, solution first dose 12/30/15 19:00:00 PLAY LEADER, stop date 12/30/15 19:00:00 PLAY LEADER [facility] No Perico 300 mL, Memoria Medication 3-11 Wheat Soln-IV, l 00:03: IV, Once, Denis 00 first dose 12/30/15 18:03:00 PLAY LEADER, stop date 12/30/15 18:03:00 PLAY LEADER Misc No Perico 300 mL, Memoria Medication 3-11 Wheat Soln-IV, l 00:03: IV, Once, Wisner 00 first dose 12/30/15 18:03:00 PLAY LEADER, stop date 12/30/15 18:03:00 PLAY LEADER Misc No Perico 300 mL, Memoria Medication 3-11 Wheat Soln-IV, l 00:03: IV, Once, Denis first dose 12/30/15 18:03:00 PLAY LEADER, stop date 12/30/15 18:03:00 PLAY LEADER promethazin No Kyle K 12.5 mg = Memoria e 3-11 Silvestre 0.5 mL, l 00:02: Injection, Denis 00 IM, Once PRN for severe nausea, first dose 12/30/15 18:02:00 PLAY LEADER albuterol No Kyle K 2.5 mg = 3 Memoria 2.5 mg/3 mL 3-11 Silvestre mL, Soln, l (0.083%) 00:02: NEB, Once Herm connie inhalation 00 PRN for solution wheezing, first dose 12/30/15 18:02:00 PLAY LEADER Demerol HCl No Kyle K 12.5 mg = Memoria 3-11 Silvestre 0.25 mL, l 00:02: Injection, Denis 00 IV Push, Once PRN for shivers, first dose 12/30/15 18:02:00 PLAY LEADER ondansetron No Kyle K 4 mg = 2 Memoria 3-11 Silvestre mL, l 00:02: Injection, Denis 00 IV Push, q15min PRN for nausea/vom iting, order duration: 2 doses, first dose 12/30/15 18:02:00 PLAY LEADER, stop date Limited # of times Dilaudid No Kyle K 0.5 mg = Mem oria 3-11 Silvestre 0.25 mL, l 00:02: Injection, Wisner 00 IV Push, q10min PRN for pain severe (7-10), first dose 12/30/15 18:02:00 PLAY LEADER diphenhydrA No Kyle K 25 mg = M emoria MINE 3-11 Silvestre 0.5 mL, l 00:02: Injection, Wisner 00 IV Push, Once PRN for itching, first dose 12/30/15 18:02:00 PLAY LEADER LR 1,000 mL No Kyle K 1,000 mL, Memoria 3-11 Silvestre IV, 75 l 00:02: mL/hr, Wisner 00 start date 12/30/15 18:02:00 PLAY LEADER Saline Lock No Kyle K 10 mL, Me moria Flush 3-11 Silvestre Soln, IV l 00:02: Push, As Denis 00 Indicated PRN for flush, first dose 12/30/15 18:02:00 PLAY LEADER Bupivacaine No Kyle K 300 mL, M emoria 0.25% 300 3-11 Silvestre Nerve l mL pump 300 00:02: Block, 5 He rmann mL 00 mL/hr, start date 12/30/15 18:02:00 PLAY LEADER promethazin No Kyle K 12.5 mg = Memoria e 3-11 Silvestre 0.5 mL, l 00:02: Injection, Wisner 00 IM, Once PRN for severe nausea, first dose 12/30/15 18:02:00 PLAY LEADER albuterol No Kyle K 2.5 mg = 3 Memoria 2.5 mg/3 mL 3-11 Silvestre mL, Soln, l (0.083%) 00:02: NEB, Once Herm connie inhalation 00 PRN for solution wheezing, first dose 12/30/15 18:02:00 PLAY LEADER Demerol HCl No Kyle K 12.5 mg = Memoria 3-11 Silvestre 0.25 mL, l 00:02: Injection, Denis 00 IV Push, Once PRN for shivers, first dose 12/30/15 18:02:00 PLAY LEADER ondansetron No Kyle K 4 mg = 2 Memoria 3-11 Silvestre mL, l 00:02: Injection, Wisner 00 IV Push, q15min PRN for nausea/vom iting, order duration: 2 doses, first dose 12/30/15 18:02:00 PLAY LEADER, stop date Limited # of times Dilaudid No Kyle K 0.5 mg = Mem oria 3-11 Silvestre 0.25 mL, l 00:02: Injection, Wisner 00 IV Push, q10min PRN for pain severe (7-10), first dose 12/30/15 18:02:00 PLAY LEADER diphenhydrA No Kyle K 25 mg = M emoria MINE 3-11 Silvestre 0.5 mL, l 00:02: Injection, Denis 00 IV Push, Once PRN for itching, first dose 12/30/15 18:02:00 PLAY LEADER LR 1,000 mL No Kyle K 1,000 mL, Memoria 3-11 Silvestre IV, 75 l 00:02: mL/hr, Wisner 00 start date 12/30/15 18:02:00 PLAY LEADER Saline Lock No Kyle K 10 mL, Me moria Flush 3-11 Silvestre Soln, IV l 00:02: Push, As Wisner 00 Indicated PRN for flush, first dose 12/30/15 18:02:00 PLAY LEADER Bupivacaine No Kyle K 300 mL, M emoria 0.25% 300 3-11 Silvestre Nerve l mL pump 300 00:02: Block, 5 He rmann mL 00 mL/hr, start date 12/30/15 18:02:00 PLAY LEADER promethazin No Kyle K 12.5 mg = Memoria e 3-11 Silvestre 0.5 mL, l 00:02: Injection, Denis 00 IM, Once PRN for severe nausea, first dose 12/30/15 18:02:00 PLAY LEADER albuterol No Kyle K 2.5 mg = 3 Memoria 2.5 mg/3 mL 3-11 Silvestre mL, Soln, l (0.083%) 00:02: NEB, Once Herm connie inhalation 00 PRN for solution wheezing, first dose 12/30/15 18:02:00 PLAY LEADER Demerol HCl No Kyle K 12.5 mg = Memoria 3-11 Silvestre 0.25 mL, l 00:02: Injection, Denis 00 IV Push, Once PRN for shivers, first dose 12/30/15 18:02:00 PLAY LEADER ondansetron No Kyle K 4 mg = 2 Memoria 3-11 Silvestre mL, l 00:02: Injection, Wisner 00 IV Push, q15min PRN for nausea/vom iting, order duration: 2 doses, first dose 12/30/15 18:02:00 PLAY LEADER, stop date Limited # of times Dilaudid No Kyle K 0.5 mg = Mem oria 3-11 Silvestre 0.25 mL, l 00:02: Injection, IV Push, q10min PRN for pain severe (7-10), first dose 12/30/15 18:02:00 PLAY LEADER diphenhydrA No Kyle K 25 mg = M emoria MINE 3-11 Silvestre 0.5 mL, l 00:02: Injection, Denis 00 IV Push, Once PRN for itching, first dose 12/30/15 18:02:00 PLAY LEADER LR 1,000 mL No Kyle K 1,000 mL, Memoria 3-11 Silvestre IV, 75 l 00:02: mL/hr, start date 12/30/15 18:02:00 PLAY LEADER Saline Lock No Kyle K 10 mL, Me moria Flush 3-11 Silvestre Soln, IV l 00:02: Push, As Indicated PRN for flush, first dose 12/30/15 18:02:00 PLAY LEADER Bupivacaine No Kyle K 300 mL, M emoria 0.25% 300 3-11 Silvestre Nerve l mL pump 300 00:02: Block, 5 He rmann mL 00 mL/hr, start date 12/30/15 18:02:00 PLAY LEADER [facility] No Perico 1,000 mL, Memori a Medication 3-10 Wheat Soln-IV, l 23:42: IV, Once, first dose 12/30/15 17:42:00 PLAY LEADER, stop date 12/30/15 17:42:00 PLAY LEADER [facility] No Perico 1,000 mL, Memori a Medication 3-10 Wheat Soln-IV, l 23:42: IV, Once, first dose 12/30/15 17:42:00 PLAY LEADER, stop date 12/30/15 17:42:00 PLAY LEADER [facility] No Perico 1,000 mL, Memori a Medication 3-10 Wheat Soln-IV, l 23:42: IV, Once, Wisner 00 first dose 12/30/15 17:42:00 PLAY LEADER, stop date 12/30/15 17:42:00 PLAY LEADER fentaNYL 2015-0 No Perico 25 mcg = Mem oria 3-10 Wheat 0.5 mL, l 23:20: Injection, Denis 00 IV, Once, first dose 12/30/15 17:20:00 PLAY LEADER, stop date 12/30/15 17:20:00 PLAY LEADER fentaNYL 2015-0 No Perico 25 mcg = Mem oria 3-10 Wheat 0.5 mL, l 23:20: Injection, Wisner 00 IV, Once, first dose 12/30/15 17:20:00 PLAY LEADER, stop date 12/30/15 17:20:00 PLAY LEADER fentaNYL 2015-0 No Perico 25 mcg = Mem oria 3-10 Wheat 0.5 mL, l 23:20: Injection, Wisner 00 IV, Once, first dose 12/30/15 17:20:00 PLAY LEADER, stop date 12/30/15 17:20:00 PLAY LEADER ondansetron No Perico 4 mg = 2 Memoria 3-10 Wheat mL, l 23:03: Injection, Wisner 00 IV, Once, first dose 12/30/15 17:03:00 PLAY LEADER, stop date 12/30/15 17:03:00 PLAY LEADER ondansetron No Perico 4 mg = 2 Memoria 3-10 Wheat mL, l 23:03: Injection, Denis 00 IV, Once, first dose 12/30/15 17:03:00 PLAY LEADER, stop date 12/30/15 17:03:00 PLAY LEADER ondansetron No Perico 4 mg = 2 Memoria 3-10 Wheat mL, l 23:03: Injection, Wisner 00 IV, Once, first dose 12/30/15 17:03:00 PLAY LEADER, stop date 12/30/15 17:03:00 PLAY LEADER fentaNYL 2015-0 No Perico 25 mcg = Mem oria 3-10 Wheat 0.5 mL, l 23:00: Injection, Wisner 00 IV, Once, first dose 12/30/15 17:00:00 PLAY LEADER, stop date 12/30/15 17:00:00 PLAY LEADER fentaNYL 2015-0 No Perico 25 mcg = Mem oria 3-10 Wheat 0.5 mL, l 23:00: Injection, Wisner 00 IV, Once, first dose 12/30/15 17:00:00 PLAY LEADER, stop date 12/30/15 17:00:00 PLAY LEADER fentaNYL 2015- No Perico 25 mcg = Mem oria 3-10 Wheat 0.5 mL, l 23:00: Injection, Wisner 00 IV, Once, first dose 12/30/15 17:00:00 PLAY LEADER, stop date 12/30/15 17:00:00 PLAY LEADER fentaNYL No Perico 25 mcg = Mem oria 3-10 Wheat 0.5 mL, l 22:48: Injection, Denis 00 IV, Once, first dose 12/30/15 16:48:00 PLAY LEADER, stop date 12/30/15 16:48:00 PLAY LEADER fentaNYL No Perico 25 mcg = Mem oria 3-10 Wheat 0.5 mL, l 22:48: Injection, Denis 00 IV, Once, first dose 12/30/15 16:48:00 PLAY LEADER, stop date 12/30/15 16:48:00 PLAY LEADER fentaNYL No Perico 25 mcg = Mem oria 3-10 Wheat 0.5 mL, l 22:48: Injection, Wisner 00 IV, Once, first dose 12/30/15 16:48:00 PLAY LEADER, stop date 12/30/15 16:48:00 PLAY LEADER fentaNYL No Perico 25 mcg = Mem oria 3-10 Wheat 0.5 mL, l 22:37: Injection, Wisner 00 IV, Once, first dose 12/30/15 16:37:00 PLAY LEADER, stop date 12/30/15 16:37:00 PLAY LEADER fentaNYL No Perico 25 mcg = Mem oria 3-10 Wheat 0.5 mL, l 22:37: Injection, Denis 00 IV, Once, first dose 12/30/15 16:37:00 PLAY LEADER, stop date 12/30/15 16:37:00 PLAY LEADER fentaNYL 2015- No Perico 25 mcg = Mem oria 3-10 Wheat 0.5 mL, l 22:37: Injection, Wisner 00 IV, Once, first dose 12/30/15 16:37:00 PLAY LEADER, stop date 12/30/15 16:37:00 PLAY LEADER dexamethaso 2016-0 No Perico 8 mg = 2 Memoria ne 3-10 Wheat mL, l 22:23: Injection, Denis 00 IV, Once, first dose 12/30/15 16:23:00 PLAY LEADER, stop date 12/30/15 16:23:00 PLAY LEADER dexamethaso 2015-0 No Perico 8 mg = 2 Memoria ne 3-10 Wheat mL, l 22:23: Injection, Wisner 00 IV, Once, first dose 12/30/15 16:23:00 PLAY LEADER, stop date 12/30/15 16:23:00 PLAY LEADER dexamethaso 2015-0 No Perico 8 mg = 2 Memoria ne 3-10 Wheat mL, l 22:23: Injection, Denis 00 IV, Once, first dose 12/30/15 16:23:00 PLAY LEADER, stop date 12/30/15 16:23:00 PLAY LEADER Misc 2015-0 No Perico 1,000 mL, Memori a Medication 3-10 Wheat Soln-IV, l 22:21: IV, Once, Denis 00 first dose 12/30/15 16:21:00 PLAY LEADER, stop date 12/30/15 16:21:00 PLAY LEADER Misc 2015-0 No Perico 1,000 mL, Memori a Medication 3-10 Wheat Soln-IV, l 22:21: IV, Once, Denis 00 first dose 12/30/15 16:21:00 PLAY LEADER, stop date 12/30/15 16:21:00 PLAY LEADER Misc 0 No Perico 1,000 mL, Memori a Medication 3-10 Wheat Soln-IV, l 22:21: IV, Once, Denis 00 first dose 12/30/15 16:21:00 PLAY LEADER, stop date 12/30/15 16:21:00 PLAY LEADER clindamycin 2015-0 Yes Perico 928.125 M emoria 3-10 Wheat mg, l 22:18: Soln-IV, Wisner 00 IV, Once, first dose 12/30/15 16:18:00 PLAY LEADER, stop date 12/30/15 16:18:00 PLAY LEADER clindamycin 2015-0 Yes Perico 928.125 M emoria 3-10 Wheat mg, l 22:18: Soln-IV, Denis 00 IV, Once, first dose 12/30/15 16:18:00 PLAY LEADER, stop date 12/30/15 16:18:00 PLAY LEADER clindamycin 2015-0 Yes Perico 928.125 M emoria 3-10 Wheat mg, l 22:18: Soln-IV, Denis 00 IV, Once, first dose 12/30/15 16:18:00 PLAY LEADER, stop date 12/30/15 16:18:00 PLAY LEADER fentaNYL No Perico 25 mcg = Mem oria 3-10 Wheat 0.5 mL, l 22:05: Injection, Wisner 00 IV, Once, first dose 12/30/15 16:05:00 PLAY LEADER, stop date 12/30/15 16:05:00 PLAY LEADER midazolam No Perico 0.5 mg = Me moria 3-10 Wheat 0.5 mL, l 22:05: Injection, Wisner 00 IV, Once, first dose 12/30/15 16:05:00 PLAY LEADER, stop date 12/30/15 16:05:00 PLAY LEADER fentaNYL 2015- No Perico 25 mcg = Mem oria 3-10 Wheat 0.5 mL, l 22:05: Injection, Wisner 00 IV, Once, first dose 12/30/15 16:05:00 PLAY LEADER, stop date 12/30/15 16:05:00 PLAY LEADER midazolam 2015- No Perico 0.5 mg = Me moria 3-10 Wheat 0.5 mL, l 22:05: Injection, Denis 00 IV, Once, first dose 12/30/15 16:05:00 PLAY LEADER, stop date 12/30/15 16:05:00 PLAY LEADER fentaNYL 2015-0 No Perico 25 mcg = Mem oria 3-10 Wheat 0.5 mL, l 22:05: Injection, Wisner 00 IV, Once, first dose 12/30/15 16:05:00 PLAY LEADER, stop date 12/30/15 16:05:00 PLAY LEADER midazolam No Perico 0.5 mg = Me moria 3-10 Wheat 0.5 mL, l 22:05: Injection, Denis 00 IV, Once, first dose 12/30/15 16:05:00 PLAY LEADER, stop date 12/30/15 16:05:00 PLAY LEADER lidocaine 2015-0 No Perico 3 mL, Memor ia 3-10 Wheat Injection, l 21:58: IV, Once, Denis 00 first dose 12/30/15 15:58:00 PLAY LEADER, stop date 12/30/15 15:58:00 PLAY LEADER propofol No Perico 120 mg = Mem oria 3-10 Wheat 12 mL, l 21:58: Emulsion, Denis 00 IV, Once, first dose 12/30/15 15:58:00 PLAY LEADER, stop date 12/30/15 15:58:00 PLAY LEADER lidocaine No Perico 3 mL, Memor ia 3-10 Wheat Injection, l 21:58: IV, Once, Wisner 00 first dose 12/30/15 15:58:00 PLAY LEADER, stop date 12/30/15 15:58:00 PLAY LEADER propofol No Perico 120 mg = Mem oria 3-10 Wheat 12 mL, l 21:58: Emulsion, Denis 00 IV, Once, first dose 12/30/15 15:58:00 PLAY LEADER, stop date 12/30/15 15:58:00 PLAY LEADER lidocaine No Perico 3 mL, Memor ia 3-10 Wheat Injection, l 21:58: IV, Once, Denis 00 first dose 12/30/15 15:58:00 PLAY LEADER, stop date 12/30/15 15:58:00 PLAY LEADER propofol No Perico 120 mg = Mem oria 3-10 Wheat 12 mL, l 21:58: Emulsion, Denis 00 IV, Once, first dose 12/30/15 15:58:00 PLAY LEADER, stop date 12/30/15 15:58:00 PLAY LEADER midazolam No Perico 0.5 mg = Me moria 3-10 Wheat 0.5 mL, l 21:50: Injection, Denis 00 IV, Once, first dose 12/30/15 15:50:00 PLAY LEADER, stop date 12/30/15 15:50:00 PLAY LEADER fentaNYL No Perico 25 mcg = Mem oria 3-10 Wheat 0.5 mL, l 21:50: Injection, Wisner 00 IV, Once, first dose 12/30/15 15:50:00 PLAY LEADER, stop date 12/30/15 15:50:00 PLAY LEADER midazolam No Perico 0.5 mg = Me moria 3-10 Wheat 0.5 mL, l 21:50: Injection, Wisner 00 IV, Once, first dose 12/30/15 15:50:00 PLAY LEADER, stop date 12/30/15 15:50:00 PLAY LEADER fentaNYL 2016-0 No Perico 25 mcg = Mem oria 3-10 Wheat 0.5 mL, l 21:50: Injection, Denis 00 IV, Once, first dose 12/30/15 15:50:00 PLAY LEADER, stop date 12/30/15 15:50:00 PLAY LEADER midazolam 2015-0 No Perico 0.5 mg = Me moria 3-10 Wheat 0.5 mL, l 21:50: Injection, Denis 00 IV, Once, first dose 12/30/15 15:50:00 PLAY LEADER, stop date 12/30/15 15:50:00 PLAY LEADER fentaNYL 2016-0 No Perico 25 mcg = Mem oria 3-10 Wheat 0.5 mL, l 21:50: Injection, Denis 00 IV, Once, first dose 12/30/15 15:50:00 PLAY LEADER, stop date 12/30/15 15:50:00 PLAY LEADER midazolam 2015-0 No Perico 0.5 mg = Me moria 3-10 Wheat 0.5 mL, l 21:10: Injection, Wisner 00 IV, Once, first dose 12/30/15 15:10:00 PLAY LEADER, stop date 12/30/15 15:10:00 PLAY LEADER fentaNYL 2016-0 No Perico 25 mcg = Mem oria 3-10 Wheat 0.5 mL, l 21:10: Injection, Wisner 00 IV, Once, first dose 12/30/15 15:10:00 PLAY LEADER, stop date 12/30/15 15:10:00 PLAY LEADER midazolam 2015-0 No Perico 0.5 mg = Me moria 3-10 Wheat 0.5 mL, l 21:10: Injection, Wisner 00 IV, Once, first dose 12/30/15 15:10:00 PLAY LEADER, stop date 12/30/15 15:10:00 PLAY LEADER fentaNYL 2016-0 No Perico 25 mcg = Mem oria 3-10 Wheat 0.5 mL, l 21:10: Injection, Wisner 00 IV, Once, first dose 12/30/15 15:10:00 PLAY LEADER, stop date 12/30/15 15:10:00 PLAY LEADER midazolam 2016-0 No Perico 0.5 mg = Me moria 3-10 Wheat 0.5 mL, l 21:10: Injection, Denis 00 IV, Once, first dose 12/30/15 15:10:00 PLAY LEADER, stop date 12/30/15 15:10:00 PLAY LEADER fentaNYL 2015- No Perico 25 mcg = Mem oria 3-10 Wheat 0.5 mL, l 21:10: Injection, Denis 00 IV, Once, first dose 12/30/15 15:10:00 PLAY LEADER, stop date 12/30/15 15:10:00 PLAY LEADER fentaNYL No Perico 25 mcg = Mem oria 3-10 Wheat 0.5 mL, l 21:05: Injection, Wisner 00 IV, Once, first dose 12/30/15 15:05:00 PLAY LEADER, stop date 12/30/15 15:05:00 PLAY LEADER midazolam No Perico 0.5 mg = Me moria 3-10 Wheat 0.5 mL, l 21:05: Injection, Wisner 00 IV, Once, first dose 12/30/15 15:05:00 PLAY LEADER, stop date 12/30/15 15:05:00 PLAY LEADER fentaNYL No Perico 25 mcg = Mem oria 3-10 Wheat 0.5 mL, l 21:05: Injection, Denis 00 IV, Once, first dose 12/30/15 15:05:00 PLAY LEADER, stop date 12/30/15 15:05:00 PLAY LEADER midazolam No Perico 0.5 mg = Me moria 3-10 Wheat 0.5 mL, l 21:05: Injection, Denis 00 IV, Once, first dose 12/30/15 15:05:00 PLAY LEADER, stop date 12/30/15 15:05:00 PLAY LEADER fentaNYL No Perico 25 mcg = Mem oria 3-10 Wheat 0.5 mL, l 21:05: Injection, Wisner 00 IV, Once, first dose 12/30/15 15:05:00 PLAY LEADER, stop date 12/30/15 15:05:00 PLAY LEADER midazolam No Perico 0.5 mg = Me moria 3-10 Wheat 0.5 mL, l 21:05: Injection, Denis 00 IV, Once, first dose 12/30/15 15:05:00 PLAY LEADER, stop date 12/30/15 15:05:00 PLAY LEADER clindamycin 2015-0 No Jose Francisco 900 mg, IV Memoria 3-10 Johnson Piggyback, l 20:00: Once, Denis 00 infuse over 30 minutes, first dose 12/30/15 14:00:00 PLAY LEADER, stop date 12/30/15 14:00:00 PLAY LEADER, Prophylaxi s clindamycin 2015-0 No Jose Francisco 900 mg, IV Memoria 3-10 Johnson Piggyback, l 20:00: Once, Denis 00 infuse over 30 minutes, first dose 12/30/15 14:00:00 PLAY LEADER, stop date 12/30/15 14:00:00 PLAY LEADER, Prophylaxi s clindamycin 2015-0 No Jose Francisco 900 mg, IV Memoria 3-10 Johnson Piggyback, l 20:00: Once, Denis 00 infuse over 30 minutes, first dose 12/30/15 14:00:00 PLAY LEADER, stop date 12/30/15 14:00:00 PLAY LEADER, Prophylaxi s LR 1,000 mL No Kyle K 1,000 mL, Memoria 3-10 Silvestre IV, 30 l 19:27: mL/hr, Denis 00 start date 12/30/15 13:27:00 PLAY LEADER Lidocaine 2015-0 No Kyle K 0.2 mL, Mem oria 2% 0.2 mL 3-10 Silvestre Injection, l IV Start 19:27: [facility] us, Once PRN for other (see comment), first dose 12/30/15 13:27:00 PLAY LEADER LR 1,000 mL 2015-0 No Kyle K 1,000 mL, Memoria 3-10 Silvestre IV, 30 l 19:27: mL/hr, Denis 00 start date 12/30/15 13:27:00 PLAY LEADER Lidocaine 2015-0 No Kyle K 0.2 mL, Mem oria 2% 0.2 mL 3-10 Silvestre Injection, l IV Start 19:27: Subcutaneo Her hunt [[place]] 00 us, Once PRN for other (see comment), first dose 12/30/15 13:27:00 PLAY LEADER LR 1,000 mL No Kyle K 1,000 mL, Memoria 3-10 Silvestre IV, 30 l 19:27: mL/hr, Denis 00 start date 12/30/15 13:27:00 PLAY LEADER Lidocaine No Kyle K 0.2 mL, Mem oria 2% 0.2 mL 3 Silvestre Injection, l IV Start 19:27: Subcutaneo Her hunt [[facility]] 00 us, Once PRN for other (see comment), first dose 12/30/15 13:27:00 PLAY LEADER Seroquel Yes 100 mg, Memori a 12-28 Oral, l 14:40: Daily, 0 Wisner 00 Refill(s), migraines acetaminoph Yes 1 tabs, Mem oria en-HYDROcod 12-28 Oral, l one 325 14:40: q6hr, 0 Wisner mg-5 mg 00 Refill(s), oral tablet pain traMADol 50 Yes 50 mg = 1 M emoria mg oral 12-28 tabs, l tablet 14:40: Oral, Wisner 00 q4hr, 0 Refill(s), pain amLODIPine- Yes 1 tabs, Mem oria atorvastati 12-28 Oral, qHS, l n 5 mg-40 14:40: 0 Wisner mg oral 00 Refill(s), tablet cholestero l/hyperten will Osteo Yes Oral, Memoria Bi-Flex 3- Daily, 0 l 14:40: Refill(s), Denis 00 supplement Nature's Yes 1,000 mg = Mem oria Bounty Red 12-28 2 caps, l Krill Oil 14:40: Oral, BID, He rmann 500 mg oral 00 0 capsule Refill(s), supplement aspirin 81 Yes 81 mg = 1 Me moria mg oral 09 tabs, l tablet 14:40: Oral, Wisner 00 Daily, 0 Refill(s), supplement Axert 12.5 Yes 12.5 mg = Me moria mg oral 12-28 1 tabs, l tablet 14:40: Oral, Denis 00 Once, PRN for migraine headache, may repeat dose once in 2 hours, # 6 tabs, 0 Refill(s), migrainesm ay repeat dose once in 2 hours Wellbutrin 2016-0 Yes 300 mg, Turner arnoldo XL 3- Oral, l 14:40: q24hr, 0 Wisner 00 Refill(s), migraines Seroquel 2016- Yes 100 mg, Memori a 3- Oral, l 14:40: Daily, 0 Wisner 00 Refill(s), migraines acetaminoph Yes 1 tabs, Mem oria en-HYDROcod 3- Oral, l one 325 14:40: q6hr, 0 Denis mg-5 mg 00 Refill(s), oral tablet pain traMADol 50 2016- Yes 50 mg = 1 M emoria mg oral 3-09 tabs, l tablet 14:40: Oral, Wisner 00 q4hr, 0 Refill(s), pain amLODIPine- 2016 Yes 1 tabs, Mem oria atorvastati 3- Oral, qHS, l n 5 mg-40 14:40: 0 Wisner mg oral 00 Refill(s), tablet cholestero l/hyperten will Osteo 2015- Yes Oral, Memoria Bi-Flex 3- Daily, 0 l 14:40: Refill(s), Wisner 00 supplement Nature's Yes 1,000 mg = Mem oria Bounty Red 12-28 2 caps, l Krill Oil 14:40: Oral, BID, He rmann 500 mg oral 00 0 capsule Refill(s), supplement aspirin 81 Yes 81 mg = 1 Me moria mg oral -09 tabs, l tablet 14:40: Oral, Wisner 00 Daily, 0 Refill(s), supplement Axert 12.5 2015- Yes 12.5 mg = Me moria mg oral 12-28 1 tabs, l tablet 14:40: Oral, Denis 00 Once, PRN for migraine headache, may repeat dose once in 2 hours, # 6 tabs, 0 Refill(s), migrainesm ay repeat dose once in 2 hours Wellbutrin 2016- Yes 300 mg, Turner arnoldo XL 3- Oral, l 14:40: q24hr, 0 Wisner 00 Refill(s), migraines Seroquel 2016 Yes 100 mg, Memori a 3- Oral, l 14:40: Daily, 0 Wisner 00 Refill(s), migraines acetaminoph Yes 1 tabs, Mem oria en-HYDROcod 12-28 Oral, l one 325 14:40: q6hr, 0 Wisner mg-5 mg 00 Refill(s), oral tablet pain traMADol 50 Yes 50 mg = 1 M emoria mg oral 09 tabs, l tablet 14:40: Oral, Denis 00 q4hr, 0 Refill(s), pain amLODIPine- Yes 1 tabs, Mem oria atorvastati 12-28 Oral, qHS, l n 5 mg-40 14:40: 0 Wisner mg oral 00 Refill(s), tablet cholestero l/hyperten will Osteo Yes Oral, Memoria Bi-Flex 3 Daily, 0 l 14:40: Refill(s), Wisner 00 supplement Nature's Yes 1,000 mg = Mem oria Bounty Red 12-28 2 caps, l Krill Oil 14:40: Oral, BID, He rmann 500 mg oral 00 0 capsule Refill(s), supplement aspirin 81 Yes 81 mg = 1 Me moria mg oral 12-28 tabs, l tablet 14:40: Oral, Wisner 00 Daily, 0 Refill(s), supplement Axert 12.5 [...] Date Status Commen ts Source Name Name FLUCELVAX QUAD PF 2022-06-[address] 00:00:00 [facility] Bebtelovimab 2022-04-16 Completed Religion 00:00:00 [facility] FLUCELVAX QUAD PF 2021-07-[address] 00:[facility]:00 [facility] FLUCELVAX QUAD PF 2020-09-[address] [facility] Hx influenza 2019-08-13 Completed [facility] vaccine-unspecified< 00:00:00 sup>1</sup> Hx influenza 2019-08-13 Completed [facility] vaccine-unspecified< 00:00:00 sup>1</sup> Hx influenza 2019-08-13 Completed [facility] vaccine-unspecified< 00:00:00 sup>1</sup> FLUCELVAX QUAD PF 2019-08-[address] [facility] Tdap 2019-06-28 Completed Religion 00:00:00 [facility] pneumococcal 2019-05-14 Completed [facility] 23-valent 00:00:00 vaccine<sup>3</sup> pneumococcal 2019-05-14 Completed [facility] 23-valent 00:00:00 vaccine<sup>3</sup> pneumococcal 2019-05-14 Completed [facility] 23-valent 00:00:00 vaccine<sup>3</sup> Hx influenza 2011-08-15 Completed [facility] vaccine-unspecified< 14:42:42 sup>1</sup> Hx influenza 2011-08-15 Completed [facility] vaccine-unspecified< 14:42:42 sup>2</sup> Hx influenza 2011-08-15 Completed [facility] vaccine-unspecified< 14:42:42 sup>1</sup> Hx influenza 2011-08-15 Completed [facility] vaccine-unspecified< 14:42:42 sup>2</sup> Hx influenza 2011-08-15 Completed [facility] vaccine-unspecified< 14:42:42 sup>1</sup> Hx influenza 2011-08-15 Completed [facility] vaccine-unspecified< 14:42:42 sup>2</sup> Vital Signs Vital Name Observation Time Observation Value Comments Source Systolic blood 2022-08-27 21:24:34 114 mm[Hg] [facility] pressure Diastolic blood 2022-08-27 21:24:34 57 mm[Hg] [facility] pressure Heart rate 2022-08-27 21:24:34 87 [facility] 2022-08-27 21:24:34 36.61 Linda [facility] Respiratory rate 2022-08-27 21:24:34 18 /min [facility] Oxygen saturation in 2022-08-27 21:24:34 100 /min [facility] Arterial blood by Pulse oximetry Body height 2022-08-27 05:00:00 170.2 cm [facility] Body weight 2022-08-27 05:00:00 107.2 kg [facility] BMI 2022-08-27 05:00:00 37.02 kg/m2 [facility] Temperature Oral (F) 2022-04-19 19:52:00 97.6 F [facility] Height 2022-04-19 19:52:00 170.18 cm [facility] Weight 2022-04-19 19:52:00 [facility] BMI Calculated 2022-04-19 19:52:00 [facility] Heart Rate 2021-10-17 21:23:00 [facility] Systolic (mm Hg) 2021-10-17 21:23:00 Turner rial Wisner Diastolic (mm Hg) 2021-10-17 21:23:00 Mem orial Wisner Height 2021-10-17 21:23:00 165.1 cm [facility] Weight 2021-10-17 21:23:00 [facility] BMI Calculated 2021-10-17 21:23:00 [facility] Heart Rate 2021-09-09 20:12:00 [facility] Heart Rate 2021-09-09 20:08:00 [facility] Systolic (mm Hg) 2021-09-09 20:08:00 Turner rial Wisner Diastolic (mm Hg) 2021-09-09 20:08:00 Mem orial Wisner Height 2021-09-09 20:08:00 165.1 cm [facility] Weight 2021-09-09 20:08:00 [facility] BMI Calculated 2021-09-09 20:08:00 [facility] Denis Systolic (mm Hg) 2020-09-15 15:59:00 Turner rial Denis Diastolic (mm Hg) 2020-09-15 15:59:00 Mem orial Denis Heart Rate 2020-09-15 15:59:00 [facility] Height 2020-09-15 15:59:00 165.1 cm [facility] Weight 2020-09-15 15:59:00 [facility] BMI Calculated 2020-09-15 15:59:00 [facility] Denis Systolic (mm Hg) 2019-12-16 20:42:00 Turner rial Denis Diastolic (mm Hg) 2019-12-16 20:42:00 Mem orial Denis Heart Rate 2019-12-16 20:42:00 [facility] Temperature Oral (F) 2019-12-16 20:42:00 98.2 F [facility] Height 2019-12-16 20:42:00 170.18 cm [facility] Weight 2019-12-16 20:42:00 [facility] BMI Calculated 2019-12-16 20:42:00 [facility]ner Systolic (mm Hg) 2019-10-02 21:53:00 Turner rial Denis Diastolic (mm Hg) 2019-10-02 21:53:00 Mem orial Wisner Heart Rate 2019-10-02 21:53:00 [facility] Temperature Oral (F) 2019-10-02 21:53:00 97.9 F [facility] Height 2019-10-02 21:53:00 165.1 cm [facility] Weight 2019-10-02 21:53:00 [facility] BMI Calculated 2019-10-02 21:53:00 [facility] Denis Height 2019-08-15 14:54:00 165.1 cm [facility] Weight 2019-08-15 14:54:00 [facility] BMI Calculated 2019-08-15 14:54:00 [facility] Systolic (mm Hg) 2019-08-15 14:54:00 Turner rial Denis Diastolic (mm Hg) 2019-08-15 14:54:00 Mem orial Denis Heart Rate 2019-08-15 14:54:00 [facility] Temperature Oral (F) 2019-08-15 14:54:00 97.6 F [facility] Systolic (mm Hg) 2019-07-31 15:37:00 Turner rial Denis Diastolic (mm Hg) 2019-07-31 15:37:00 Mem orial Wisner Heart Rate 2019-07-31 15:37:00 [facility] Temperature Oral (F) 2019-07-31 15:37:00 98.2 F [facility] Height 2019-07-31 15:37:00 165.1 cm [facility] Weight 2019-07-31 15:37:00 [facility] BMI Calculated 2019-07-31 15:37:00 [facility] Wisner Weight 2019-03-27 15:18:00 [facility] BMI Calculated 2019-03-27 15:18:00 [facility] Denis Height 2019-03-27 15:18:00 165.1 cm [facility] Temperature Oral (F) 2019-03-27 15:18:00 98.4 F [facility] Heart Rate 2019-03-27 15:18:00 [facility] Systolic (mm Hg) 2019-03-27 15:18:00 Turner rial Denis Diastolic (mm Hg) 2019-03-27 15:18:00 Mem orial Wisner Height 2019-01-02 19:16:00 165.1 cm [facility] BMI Calculated 2019-01-02 19:16:00 [facility] Wisner Weight 2019-01-02 19:16:00 [facility] Heart Rate 2019-01-02 19:16:00 [facility] Systolic (mm Hg) 2019-01-02 19:16:00 Turner rial Denis Diastolic (mm Hg) 2019-01-02 19:16:00 Mem orial Wisner Height 2019-01-02 14:26:00 167.01 cm [facility] BMI Calculated 2019-01-02 14:26:00 [facility] Denis Weight 2019-01-02 14:26:00 [facility] Heart Rate 2019-01-02 14:26:00 [facility] Temperature Oral (F) 2019-01-02 14:26:00 97.9 F [facility] Systolic (mm Hg) 2019-01-02 14:26:00 Turner rial Denis Diastolic (mm Hg) 2019-01-02 14:26:00 Mem orial Wisner Systolic (mm Hg) 2018-07-18 18:33:00 Turner rial Denis Diastolic (mm Hg) 2018-07-18 18:33:00 Mem orial Denis Heart Rate 2018-07-18 18:33:00 [facility] Weight 2018-07-18 18:33:00 [facility] BMI Calculated 2018-06-11 18:31:00 [facility] Denis Weight 2018-06-11 18:31:00 [facility] Systolic (mm Hg) 2018-06-11 18:31:00 Turner rial Wisner Diastolic (mm Hg) 2018-06-11 18:31:00 Mem orial Wisner Height 2018-06-11 18:31:00 170.18 cm [facility] Temperature Oral (F) 2018-06-11 18:31:00 98.3 F [facility] Heart Rate 2018-06-11 18:31:00 [facility] Weight 2018-01-10 16:14:00 [facility] Height 2018-01-10 16:14:00 170.18 cm [facility] BMI Calculated 2018-01-10 16:14:00 [facility] al Denis Heart Rate 2018-01-10 16:14:00 [facility] Systolic (mm Hg) 2018-01-10 16:14:00 Turner rial Denis Diastolic (mm Hg) 2018-01-10 16:14:00 Mem orial Wisner BMI Calculated 2018-01-09 15:06:00 [facility] Denis Height 2018-01-09 15:06:00 170.18 cm [facility] Weight 2018-01-09 15:06:00 [facility] Systolic (mm Hg) 2018-01-09 15:06:00 Turner rial Wisner Diastolic (mm Hg) 2018-01-09 15:06:00 Mem orial Wisner Heart Rate 2018-01-09 15:06:00 [facility] Temperature Oral (F) 2018-01-09 15:06:00 97.9 F [facility] Weight 2016-11-14 16:17:00 [facility] Height 2016-11-14 16:17:00 170.18 cm [facility] BMI Calculated 2016-11-14 16:17:00 [facility] Denis Respitory Rate 2015-12-31 01:25:00 [facility] Denis Systolic (mm Hg) 2015-12-31 00:50:00 Turner rial Denis Respitory Rate 2015-12-31 00:50:00 [facility]ner Heart Rate 2015-12-31 00:50:00 [facility] Systolic (mm Hg) 2015-12-31 00:40:00 Turner rial Wisner Respitory Rate 2015-12-31 00:40:00 [facility] Denis Heart Rate 2015-12-31 00:40:00 [facility] Heart Rate 2015-12-31 00:30:00 [facility] Systolic (mm Hg) 2015-12-31 00:30:00 Turner rial Wisner Temperature Oral (F) 2015-12-30 23:50:00 37.1 Linda [facility] Height 2015-12-30 19:23:00 169 cm [facility] Weight 2015-12-30 19:23:00 [facility] Temperature Oral (F) 2015-12-30 19:23:00 36.6 Linda [facility] Height 2015-12-29 14:13:00 170 cm [facility] Weight 2015-12-29 14:13:00 [facility] Procedures Procedure Date / Time Performing Clinician Source Performed PROTHROMBIN TIME WITH INR 2022-08-27 06:57:00 Miki Cleveland [facility] 2022-08-27 06:57:00 Miki Cleveland [facility] PANEL MAGNESIUM LEVEL 2022-08-27 06:57:00 Miki Cleveland spital PHOSPHORUS LEVEL 2022-08-27 06:57:00 Miki Cleveland ospital ESTIMATED GFR 2022-08-27 06:57:00 Miki Cleveland spital TROPONIN T 2022-08-27 06:57:00 Miki Cleveland spital ZZCOVID-19 ANTI-SPIKE IGG 2022-08-27 06:56:00 Cristofer [facility] ANTIBODY TITER COVID-19 SEROLOGY PATIENT 2022-08-27 06:56[facility] 2022-08-27 06:56:[address] [facility] W/AUTO DIFF COVID-19 QUALITATIVE 2022-08-27 04:58:00 Francisco Dean [facility] RT-PCR TROPONIN T 2022-08-27 03:58:00 Miki Cleveland spital XR CHEST 1 VW PORTABLE 2022-08-27 01:31:25 Francisco Dean [facility] METABOLIC 2022-08-27 01:20:00 Francisco trujillo [facility] PANEL LIPASE LEVEL 2022-08-27 01:20:00 Francisco trujillo [facility] TROPONIN T 2022-08-27 01:20:00 Miki Cleveland spital B NATRIURETIC PEPTIDE 2022-08-27 01:20:00 [facility] HC COMPLETE BLD COUNT 2022-08-27 01:20:00 [facility] W/AUTO DIFF ESTIMATED GFR 2022-08-27 01:20:00 [facility] ECG 12-LEAD 2022-08-27 01:03:45 Miki [facility] COMPREHENSIVE METABOLIC 2022-08-22 16:47:00 [facility] PANEL Herbert CBC WITH PLATELET AND 2022-08-22 16:47:00 [facility] DIFFERENTIAL Herbert THYROID STIMULATING 2022-08-22 16:47:00 [facility] HORMONE Herbert PARATHYROID HORMONE 2022-08-22 16:47:00 [facility] Herbert VITAMIN D 25 HYDROXY LEVEL 2022-08-22 16:47:00 [facility] Herbert NM BONE SCAN 3 PHASE 2022-07-26 18:11:00 [facility] Herbert BONE DENSITY 2022-07-26 14:02:48 [facility] BONE DENSITY PERIPHERAL 2022-07-26 14:02:48 [facility] Herbert POC GLUCOSE 2022-06-28 04:49:00 [facility] CBC HEMOGRAM 2022-06-27 10:05:00 Keith Lopez spital BASIC METABOLIC PANEL 2022-06-27 10:05:[address] [facility] ESTIMATED GFR 2022-06-27 10:05:00 Mary Ontiveros [facility] Herbert XR LUMBAR SPINE 2 OR 3 VW 2022-06-26 21:10:24 Keith Lopez [facility] XR THORACIC SPINE 2 2022-06-26 21:10:08 JohnKeith masterson [facility] XR CHEST 1 VW PORTABLE 2022-06-26 19:05:29 Akiko rod [facility] BASIC METABOLIC PANEL 2022-06-26 09:08:00 [facility] [facility] PHOSPHORUS LEVEL 2022-06-26 09:08:00 [facility] ESTIMATED GFR 2022-06-26 09:08:00 [facility] TTE COMPLETE, WO CONTRAST, 2022-06-25 15:40:58 Shayne Pavonnhradu [facility] W DOPPLER ([id number]) MRI THORACIC SPINE WO 2022-06-25 02:11:[address] [facility] CONTRAST Herbert MRI LUMBAR SPINE WO 2022-06-25 01:29:36 Clifton Lantigua [facility] CONTRAST [facility] HEPATITIS B CORE ANTIBODY 2022-06-24 17:34:[address] [facility] TOTAL HEPATITIS B SURFACE AB, 2022-06-24 17:34:[address] [facility] QUANTITATIVE HEPATITIS B SURFACE 2022-06-24 17:34:00 [facility] ANTIGEN COVID-19 QUALITATIVE 2022-06-24 16:35:00 Clifton Lantigua [facility] RT-PCR [facility] COVID-19 OMICRON VARIANT 2022-06-24 16:35:00 [facility] QUALITATIVE RT-PCR [facility] POC GLUCOSE 2022-06-24 16:35:00 Akiko rod [facility] spital POC GLUCOSE 2022-06-24 15:09:00 Clifton Lantigua [facility] CT LUMBAR SPINE WO 2022-06-24 13:41:51 Clifton Lantigua [facility] CONTRAST [facility] CT RENAL STONE PROTOCOL 2022-06-24 13:41:38 Clifton Lantigua [facility] HC COMPLETE BLD COUNT 2022-06-24 12:44:00 Clifton Lantigua [facility] W/AUTO DIFF [facility] 2022-06-24 12:44:00 [facility] PANEL [facility] ESTIMATED GFR 2022-06-24 12:44:00 Clifton Lantigua [facility] UT CRITICAL CARE, E/M 2022-06-24 12:28:33 Clifton Lantigua [facility] 30-74 MINUTES [facility] HEPATITIS B SURFACE 2022-05-20 15:33:[address] [facility] ANTIGEN [facility] HEPATITIS B SURFACE 2022-05-20 15:33:[address] [facility] ANTIBODY [facility] XR CHEST 1 VW PORTABLE 2022-04-29 13:25:18 Rajwinder Kay [facility] 2022-04-29 10:32:00 Wendie [facility] PANEL HC COMPLETE BLD COUNT 2022-04-29 10:32:00 Amos Pressley [facility] W/AUTO DIFF ESTIMATED GFR 2022-04-29 10:32:00 [facility]EM[facility] 2022-04-29 05:06:40 Catalina Teran ospital [facility] HEPATITIS B CORE ANTIBODY 2022-04-28 20:59:00 Jeffry [facility] TOTAL [facility] HEPATITIS B CORE ANTIBODY 2022-04-28 20:59:00 Jeffry [facility] IGM Valarie HEPATITIS B SURFACE 2022-04-28 20:59:00 Jeffry [facility] ANTIGEN Valarie HEPATITIS B SURFACE AB, 2022-04-28 20:58:00 BarIra [facility] QUANTITATIVE Valarie HEMODIALYSIS 2022-04-28 15:58:20 BarCatalina [facility] Valarie TROPONIN T 2022-04-28 15:44:00 [facility] CHEST 1 VW PORTABLE 2022-04-28 11:41:07 Wendie [facility] TROPONIN T 2022-04-28 11:41:[address] [facility] HC COMPLETE BLD COUNT 2022-04-28 11:41:00 [facility] W/AUTO DIFF COMPREHENSIVE METABOLIC 2022-04-28 11:41:00 [facility] PANEL PROTHROMBIN TIME WITH INR 2022-04-28 11:41:00 [facility] PARTIAL THROMBOPLASTIN 2022-04-28 11:41:00 [facility] TIME (PTT) B NATRIURETIC PEPTIDE 2022-04-28 11:41:00 [facility] PROCALCITONIN 2022-04-28 11:41:[address] [facility] CREATINE KINASE, TOTAL 2022-04-28 11:41:00 [facility] (CPK) C-REACTIVE PROTEIN 2022-04-28 11:41:00 [facility] INTERLEUKIN 6 2022-04-28 11:41:[address] [facility] FERRITIN LEVEL 2022-04-28 11:41:[address] [facility] D-DIMER 2022-04-28 11:41:[address] [facility] LDH 2022-04-28 11:41:[address] [facility] FIBRINOGEN 2022-04-28 11:41:[address] [facility] ESTIMATED GFR 2022-04-28 11:41:[address] [facility] RESPIRATORY PATHOGEN PANEL 2022-04-28 09:45:00 Taylor Woodall [facility] WITH COVID-19 RT-PCR [facility] XR CHEST 1 VW 2022-04-28 08:05:46 Taylor Woodall ospisowmya Laughlin BLOOD CULTURE, AEROBIC & 2022-04-28 07:49:00 Taylor Woodall [facility] ANAEROBIC [facility] HC COMPLETE BLD COUNT 2022-04-28 07:49:00 [facility] W/AUTO DIFF [facility] COMPREHENSIVE METABOLIC 2022-04-28 07:49:00 Taylor Woodall [facility] PANEL [facility] TROPONIN T 2022-04-28 07:49:00 Amos Pressley [facility] B NATRIURETIC PEPTIDE 2022-04-28 07:49:00 Taylor Woodall [facility] ESTIMATED GFR 2022-04-28 07:49:00 Taylor Woodall ospollytal [facility] ECG ED PRELIMINARY 2022-04-28 07:26:13 Taylor Woodall [facility] INTERPRETATION [facility] ECG 12-LEAD 2022-04-28 07:20:02 Taylor Woodall ospollytal [place] CT ABDOMEN PELVIS WO 2022-04-16 23:38:27 [facility] HC COMPLETE BLD COUNT 2022-04-16 23:14:00 Cornelio [facility] W/AUTO DIFF COMPREHENSIVE METABOLIC 2022-04-16 23:14:00 [facility] PANEL LIPASE LEVEL 2022-04-16 23:14:00 [facility] ESTIMATED GFR 2022-04-16 23:14:00 [facility] BASIC METABOLIC PANEL 2022-04-14 22:54:00 [facility] Valarie ESTIMATED GFR 2022-04-14 22:54:00 [facility] POC GLUCOSE 2022-04-14 22:04:00 Radu Puneet [facility] CT ANGIOGRAM PE CHEST 2022-04-14 00:23:56 Fabiola Rashid [facility] IR VERTEBRO LUM UNI OR BALDO 2022-04-13 19:25:00 Jena Cool eliza [facility] ECG 12-LEAD 2022-04-13 18:05:39 Greg Snyder [facility] BASIC METABOLIC PANEL 2022-04-13 10:16:00 [facility] HC COMPLETE BLD COUNT 2022-04-13 10:16:00 [facility] W/AUTO DIFF PROTHROMBIN TIME WITH INR 2022-04-13 10:16:[address] [facility] ESTIMATED GFR 2022-04-13 10:16:00 Puneet Lovelace Hamzah [facility] TYPE AND SCREEN 2022-04-13 10:16:00 Puneet Lovelace [facility] TROPONIN T 2022-04-13 02:33:00 Puneet Lovelace [facility] HEMODIALYSIS 2022-04-13 01:59:31 Baranowskylee-Daca, [facility] Valarie TTE COMPLETE, WO CONTRAST, 2022-04-13 00:15:00 Puneet Lovelace [facility] W DOPPLER ([id number]) TROPONIN T 2022-04-12 23:10:00 Radu Puneet Hamzah [facility] TROPONIN T 2022-04-12 20:19:00 Puneet Lovelace [facility] HEMODIALYSIS 2022-04-11 13:51:20 Barkristian-Paris, [facility] Valarie HC COMPLETE BLD COUNT 2022-04-11 11:10:00 [facility] DIFF BASIC METABOLIC PANEL 2022-04-11 11:10:00 Travon [facility] PARATHYROID HORMONE 2022-04-11 11:10:00 [facility] VITAMIN D 25 HYDROXY LEVEL 2022-04-11 11:10:00 Jena Cool [facility] DIGOXIN LEVEL 2022-04-11 11:10:00 [facility], [facility] ospital Valarie PHOSPHORUS LEVEL 2022-04-11 11:10:00 [facility], [facility] Valarie ESTIMATED GFR 2022-04-11 11:10:00 Jena Cool [facility] HC COMPLETE BLD COUNT 2022-04-10 09:45:00 Travon [facility] W/AUTO DIFF BASIC METABOLIC PANEL 2022-04-10 09:45:00 Travon [facility] PROTHROMBIN TIME WITH INR 2022-04-10 09:45:00 TravonJena hoyt johanne [facility] ESTIMATED GFR 2022-04-10 09:45:00 Travon Jena [facility] GASTROINTESTINAL PANEL 2022-04-09 22:47:00 Anniepaola Ellie [facility] XR CHEST 1 VW PORTABLE 2022-04-09 17:34:26 Travon [facility] HC COMPLETE BLD COUNT 2022-04-09 10:01:00 Travon [facility] W/AUTO DIFF BASIC METABOLIC PANEL 2022-04-09 10:01:00 Travon [facility] ESTIMATED GFR 2022-04-09 10:01:00 Travon Jena [facility] HEMODIALYSIS 2022-04-08 14:21:31 Baranoderekka-Daca, [facility]arie HC COMPLETE BLD COUNT 2022-04-08 10:11:00 [facility] W/AUTO DIFF COMPREHENSIVE METABOLIC 2022-04-08 10:11:00 Travon Jena [facility] PANEL ESTIMATED GFR 2022-04-08 10:11:00 Travon [facility] MRI LUMBAR SPINE WO 2022-04-08 02:13:34 [facility] POTASSIUM LEVEL 2022-04-07 18:15:00 Barkristian-Paris, [facility]arie HEPATITIS B SURFACE 2022-04-07 13:46:00 Baranowska-Daca, [facility] ANTIGEN Valarie HEPATITIS B SURFACE 2022-04-07 13:46:00 Baranowska-Daca, [facility] ANTIBODY Valarie TROPONIN T 2022-04-07 13:43:00 Gutierrez Leal Ho spital HEMODIALYSIS 2022-04-07 13:16:08 Baranowska-Daca, [facility] HC COMPLETE BLD COUNT 2022-04-07 11:21:00 Gutierrez Leal [facility] W/AUTO DIFF PROTHROMBIN TIME WITH INR 2022-04-07 11:21:00 Leal [facility] COMPREHENSIVE METABOLIC 2022-04-07 11:21:00 [facility] PANEL THYROID STIMULATING 2022-04-07 11:21:00 [facility] HORMONE ESTIMATED GFR 2022-04-07 11:21:00 Gutierrez Leal spital ZZCOVID-19 ANTI-SPIKE IGG 2022-04-07 06:43:00 [facility] ANTIBODY TITER COVID-19 SEROLOGY PATIENT 2022-04-07 06:43:00 [facility] SURVEILLANCE TROPONIN T 2022-04-07 06:43:00 Gutierrez Leal spital PROCALCITONIN 2022-04-07 06:43:00 Gutierrez Leal spital URINE CULTURE 2022-04-07 05:18:00 Ellie Crespo spital COVID-19 QUALITATIVE 2022-04-07 04:41:00 [facility] RT-PCR URINALYSIS SCREEN AND 2022-04-07 04:41:00 [facility] MICROSCOPY, WITH REFLEX TO CULTURE CT ABDOMEN PELVIS WO 2022-04-07 03:51:11 [facility] CONTRAST CT LUMBAR SPINE WO 2022-04-07 03:49:20 [facility] CONTRAST COMPREHENSIVE METABOLIC 2022-04-07 03:31:00 [facility] PAN[facility] HC COMPLETE BLD COUNT 2022-04-07 03:31:00 [facility] W/AUTO DIFF ESTIMATED GFR 2022-04-07 03:31:00 Ellie Crespo spital XR CHEST 1 VW 2022-04-07 03:22:49 Ellie Crespo spital ECG ED PRELIMINARY 2022-04-07 02:44:33 [facility] INTERPRETATION ECG 12-LEAD 2022-04-07 02:40:03 Gutierrez Leal spital HEMODIALYSIS 2021-12-28 14:28:03 Baranowska-Daca, [facility]arie BASIC METABOLIC PANEL 2021-12-28 03:17:00 Jeffry, [facility] Valarie ESTIMATED GFR 2021-12-28 03:17:00 Vinnie-Paris, [facility] POC GLUCOSE 2021-12-28 02:29:00 [place], [facility] IR VERTEBRO CERVICAL AND 2021-12-27 20:19:56 Solipurabere, [facility] THOR UNI OR BALDO R IR VERTEBROPLASTY EA ADDL 2021-12-27 20:19:56 Brielle, [facility] T OR L R UT AN ELECTIVE 2021-12-27 19:47:00 Devonte Schuster Okfrancisca [facility] ENDOTRACHEAL AIRWAY HEMODIALYSIS 2021-12-26 20:14:38 Jeffry [facility]arie BLOOD CULTURE, AEROBIC & 2021-12-25 20:28:00 Nilesh Nation [facility] ANAEROBIC URINE CULTURE 2021-12-24 23:56:00 Vinnie-Paris, [facility] [place] CT RENAL STONE PROTOCOL 2021-12-24 23:39:33 Met Jeffry [facility] URINALYSIS SCREEN AND 2021-12-24 22:29:00 Jeffry, [facility] MICROSCOPY, WITH REFLEX TO Valarie CULTURE HEMODIALYSIS 2021-12-24 15:08:13 Jeffry, [facility] ospital Valarie HC COMPLETE BLD COUNT 2021-12-23 09:55:00 Patitocatarina, [facility] W/AUTO DIFF R BASIC METABOLIC PANEL 2021-12-23 09:55:00 [facility] R PROTHROMBIN TIME WITH INR 2021-12-23 09:55:00 Brielle, [facility] R URIC ACID LEVEL 2021-12-23 09:55:00 [facility] Hospitalkristian-[place], [facility] ospiSt. Luke[facility] CenterVal[facility] DIGOXIN LEVEL 2021-12-23 09:55:00 Baranowska-Daca, [facility] CORTISOL LEVEL, AM 2021-12-23 09:55:00 Baranowska-Daca, [facility] HEMOGLOBIN A1C 2021-12-23 09:55:00 Baranowska-Daca, [facility] AMYLASE LEVEL 2021-12-23 09:55:00 Baranowska-Daca, [facility] ospital Valarie LIPASE LEVEL 2021-12-23 09:55:00 Baranowska-Daca, [facility] ospiSt. Luke's [facility] CenterValarie ESTIMATED GFR 2021-12-23 09:55:[address] [facility] [address] [facility] R VITAMIN D 25 HYDROXY LEVEL 2021-12-22 09:33:00 Baranowska-Daca, [facility] PARATHYROID HORMONE 2021-12-22 09:33:00 Baranowska-Daca, [facility] PHOSPHORUS LEVEL 2021-12-22 09:33:00 Baranowska-Daca, [facility] XR SHOULDER 2+ VW RIGHT 2021-12-22 04:05:25 Baranowska-Daca, [facility] HEMODIALYSIS 2021-12-22 03:41:52 Baranowska-Daca, [facility] MRI LUMBAR SPINE WO 2021-12-21 15:10:[address] [facility] CONTRAST MRI THORACIC SPINE WO 2021-12-21 14:44:08 Safia Scherer [facility] CONTRAST BASIC METABOLIC PANEL 2021-12-21 10:43:00 Baranowska-Daca, [facility] ESTIMATED GFR 2021-12-21 10:43:00 Baranowska-Daca, Religion H ospiSt. Luke[facility] CenterVal[facility] BASIC METABOLIC PANEL 2021-12-20 22:26:00 Baranowska-Daca, [facility] ESTIMATED GFR 2021-12-20 22:26:00 Baranowska-Daca, [facility] HEMODIALYSIS 2021-12-20 14:03:25 Oma Teranist H ospital Valarie HC COMPLETE BLD COUNT 2021-12-20 09:43:00 [facility] W/AUTO DIFF Tajdin COMPREHENSIVE METABOLIC 2021-12-20 09:43:00 [facility] PANEL Tajdin MAGNESIUM LEVEL 2021-12-20 09:43:00 [facility] Tajdin ESTIMATED GFR 2021-12-20 09:43:00 [facility] 2021-12-20 00:24:00 Cornelio [facility] HEPATITIS B SURFACE 2021-12-20 00:24:00 [facility]TIGEN [facility] HEPATITIS B SURFACE AB, 2021-12-20 00:24:00 Jeffry [facility] QUANTITATIVE Valarie HEMODIALYSIS 2021-12-19 22:22:37 Catalina Teran ospital Valarie THYROID STIMULATING 2021-12-19 21:32:00 Angy Mccord [facility] HORMONE T4, FREE 2021-12-19 21:32:00 Angy Mccord Ho spital TROPONIN T 2021-12-19 21:32:00 Angy Mccord Ho spital COVID-19 QUALITATIVE 2021-12-19 21:22:[address] [facility] RT-PCR CT LUMBAR SPINE WO 2021-12-19 20:55:41 Cornelio [facility] CONTRAST CT THORACIC SPINE WO 2021-12-19 20:53:[address] [facility] CONTRAST CT ANGIOGRAM PE CHEST 2021-12-19 20:45:21 Cornelio [facility] ECG 12-LEAD 2021-12-19 19:35:11 Cornelio [facility] XR THORACIC SPINE 2 VW 2021-12-19 19:17:36 Cornelio [facility] HC COMPLETE BLD COUNT 2021-12-19 18:50:00 Cornelio [facility] W/AUTO DIFF COMPREHENSIVE METABOLIC 2021-12-19 18:50:00 [facility] PANEL TROPONIN T 2021-12-19 18:50:00 [facility] ESTIM[facility] GFR 2021-12-19 18:50:00 [facility] LIPASE LEVEL 2021-12-19 18:50:00 [facility] ECG ED PRELIMINARY 2021-12-19 18:18:35 [facility] CHEST 2 VW 2021-11-14 16:02:54 Scott Flower ospital Diabetic retinal eye 2019-12-11 06:00:00 Jourdan Barrios exam<sup>1</sup> Mammogram 2017-05-05 05:00:00 Aylin hunt Colonoscopy<sup>2</sup> 2016-11-17 06:00:00 Turner rial Wisner OPEN REDUCTION INTERNAL 2015-12-30 22:13:00 Jose Francisco Johnson [facility] FIXATION RADIUS INTRA-ARTICULAR W/3 FRAGMENTS 68327 (Right)<sup>1</sup> Repair of 2015-12-30 06:00:00 Aylin hunt wrist<sup>3</sup> skin cancer removed from 2011-10-22 00:00:00 Mem orial Wisner arm Cholecystectomy [facility] Procedure<sup>2</sup> [facility] ermann Tubal ligation [facility] Eye operation [facility] Biopsy of breast [facility] bilateral radial [facility] kerototomy bilateral tubal ligation Memoria l Denis colonoscopy [facility] Skin cancer of [facility] arm<sup>4</sup> Plan of Care Planned Activity Planned Date Details Comments Source Future Scheduled 2022-09-01 HEPATITIS B VACCINES [facility] Test 11:07:43 (1 of 3 - 3-dose series) [code = HEPATITIS B VACCINES (1 of 3 - 3-dose series)] Future Scheduled 2022-09-01 COVID-19 VACCINE (#1) [facility] Test 11:07:43 [code = COVID-19 VACCINE (#1)] Future Scheduled 2022-09-01 65+ PNEUMOCOCCAL Methodi [facility] Test 11:07:43 VACCINE (1 - PCV) [code = 65+ PNEUMOCOCCAL VACCINE (1 - PCV)] Future Scheduled 2022-09-01 SHINGLES VACCINES ([address] [facility] Test 11:07:43 of 2) [code = SHINGLES VACCINES (1 of 2)] Future Scheduled 2022-09-01 Screening for [facility] Test 11:07:43 malignant neoplasm of cervix (procedure) [code = 332989813] Future Scheduled 2022-09-01 COLONOSCOPY SCREENING [facility] Test 11:07:43 [code = COLONOSCOPY SCREENING] Future Scheduled 2022-09-01 BREAST CANCER [facility] Test 11:07:43 SCREENING [code = BREAST CANCER SCREENING] Encounters Start End Encounter Admission Attending Care Care Encounter Source Date/Time Date/Time Type Type Clinicians Facility Department ID 2022-03-13 Inpatient JERSEY Adams ENDO [id number] [facility] 09:00:[address] 2022-08-26 2022-08-27 [facility] Francisco Dean 1.2.840.1 1 [id number] Methodi 20:01:00 18:10:00 Encounter Salvador Gomez [id number] [facility] 3.430.2.7 [facility] .3.264069 l .8 2022-08-26 2022-08-27 Inpatient [facility] [id number] [place] [address] 00:00:00 00:00:00 [facility] [address] 2022-08-26 2022-08-26 Travel 1.2.840.1 1.2.469.785 [id number] Methodi 00:00:00 00:00:[address] 3.430.2.7 0.2.7.3.698 Ho spita .3.238225 084.8 l .8 2022-08-22 2022-08-22 Orders Weston, 1.2.840.1 [id number] Methodi 00:00:00 00:00:00 Only Mary 44187.1.[address] [place] 3.430.2.7 Hosp naye .3.373428 l .8 2022-08-11 2022-08-11 Office [facility] 1.2.840.1 [id number] Methodi 12:00:00 12:15:00 Visit Mary 00274.1.[address] [place] 3.430.2.7 Hosp naye .3.200245 l .8 2022-08-11 2022-08-11 Travel 1.2.840.1 1.2.426.541 [id number] Methodi 00:00:00 00:00:[address] 3.430.2.7 0.2.7.3.698 Ho spita .3.564380 084.8 l .8 2022-08-11 2022-08-11 Outpatient [facility] [id number] [address] [place] [address] 00:00:00 00:00:00 MARY [address] 2022-08-02 2022-08-02 Travel 1.2.840.1 1.2.366.294 [id number] Methodi 00:00:00 00:00:[address] 3.430.2.7 0.2.7.3.698 Ho spita .3.678655 084.8 l .8 2022-07-26 2022-07-26 [facility] 1.2.840.1 [id number] Methodi 12:10:58 23:59:00 Encounter Mary 02903.1.1 [address] [place] 3.430.2.7 Hosp naye .3.012139 l .8 2022-07-26 2022-07-26 [facility] 1.2.840.1 [id number] Methodi 09:06:47 12:09:00 Encounter Mary 42267.1.1 [address] [place] 3.430.2.7 Hosp naye .3.169101 l .8 2022-07-26 2022-07-26 [facility], 1.2.840.1 [id number] Methodi 08:25:04 09:05:00 Encounter Mary 58830.1.1 [address] [place] 3.430.2.7 Hosp naye .3.442924 l .8 2022-07-26 2022-07-26 Travel 1.2.840.1 1.2.399.563 [id number] Methodi 00:00:00 00:00:[address] 3.430.2.7 0.2.7.3.698 Ho spita .3.544475 084.8 l .8 2022-07-26 2022-07-26 [facility] [id number] [address] [place] 00:00:00 00:00:00 MARY [address] 2022-07-26 2022-07-26 [facility] [id number] [address] [place] [address] 00:00:00 00:00:00 MARY [address] 2022-07-26 2022-07-26 [facility] [id number] [address] [place] 00:00:00 00:00:00 MARY [address] 2022-07-11 2022-07-11 Office Eker, 1.2.840.1 [id number] Methodi 14:15:00 14:15:00 Visit Mary 54598.1.[address] 3.430.2.7 Hospit a .3.530176 l .8 2022-07-11 2022-07-11 Travel 1.2.840.1 1.2.179.457 [id number] Methodi 00:00:00 00:00:[address] 3.430.2.7 0.2.7.3.698 Ho spita .3.406994 084.8 l .8 2022-07-11 2022-07-11 [facility] [id number] [address] [place] 00:00:00 00:00:00 MARY [address] 2022-07-04 2022-07-04 Office Weston, 1.2.840.1 [id number] Methodi 12:45:00 13:22:26 Visit Mary 91143.1.[address] [place] 3.430.2.7 Hosp naye .3.296792 l .8 2022-07-04 2022-07-04 Outpatient WESTON, [facility] [id number] [address] [place] 00:00:00 00:00:00 MARY [address] 2022-07-03 2022-07-03 Travel 1.2.840.1 1.2.694.297 [id number] Methodi 00:00:00 00:00:[address] 3.430.2.7 0.2.7.3.698 Ho spita .3.291504 084.8 l .8 2022-06-24 2022-06-28 [facility] 1.2.840.1 [id number] Methodi 07:21:00 20:54:00 Encounter Maddison Wharton 72316.1.[address] 3.430.2.7 Hospit a .3.699338 l .8 2022-06-24 2022-06-28 Inpatient [facility] [id number] [address] [place] 00:00:00 00:00:00 ADIL [address] 2022-06-27 2022-06-27 Prep for Nehemiah, 1.2.840.1 [id number] Methodi 00:00:00 00:00:00 Surgery Taylor Gaviria 73752.1.1 190 s t 3.430.2.7 Hospit a .3.451540 l .8 2022-06-24 2022-06-24 Travel 1.2.840.1 1.2.841.384 [id number] [facility] 00:00:00 00:00:[address] 3.430.2.7 0.2.7.3.698 [facility] .3.424847 084.8 l .8 2022-06-14 2022-06-14 Outpatient LEONEL Conteh OUTD [id number] [facility] 04:58:00 04:58:00 Quentin 89 [facility] 2022-06-07 2022-06-07 Outpatient LEONEL Conteh OUTD [id number] [facility] 06:37:00 06:37:00 Quentin 64 [facility] 2022-05-20 2022-05-[address] [facility] [id number] [facility] 00:00:00 00:00:00 Requisitio [facility] 2022-05-04 2022-05-04 Outpatient Armstrong_[facility] [id number] [place] 00:00:00 00:00:00 [address] [facility] 2022-04-28 2022-04-29 Emergency Taylor Woodall 1.2.840 .1 [id number] Methodi 02:04:00 18:01:00 Laura Carbajal 59036.1.1 [facility]26 [facility]ledge[facility] .3.466784 l .8 2022-04-28 2022-04-29 Outpatient [facility] 503 [id number] 776 [place] 00:00:00 00:00:00 ELROY Lott [facility] 2022-04-28 2022-04-28 Travel 1.2.840.1 1.2.458.069 0910 020297 Methodi 00:00:00 00:00:[address] 3.430.2.7 0.2.7.3.698 Ho spita .3.260322 084.8 l .8 2022-04-19 2022-04-20 Outpatient nullFlavo [facility] 3 [id number] Memoria 21:20:00 04:59:59 r Medicine 56 l Carrillo Vicente n 2022-04-19 2022-04-20 Outpatient nullFlavo [facility] 3 [id number] Memoria 21:20:00 04:59:59 r Medicine 56 l Carrillo Zhang n 2022-04-19 2022-04-19 Outpatient Michael, MADALYN MG [id number] 16:20:00 23:59:59 Antonella Davis 56 2022-04-19 2022-04-19 Outpatient MHIE MHIE [id number] Memoria 16:20:00 16:20:00 56 l Denis 2022-04-16 2022-04-16 Emergency [facility], 1.2.840.1 [id number] 2100 [id number] Methodi 17:10:00 22:30:00 Ashley 31011.1.1 503 [facility] 3.430.2.7 Hosp naye .3.815053 l .8 2022-04-16 2022-04-16 Travel 1.2.840.1 1.2.199.123 5358 [id number] Methodi 00:00:00 00:00:[address] 3.430.2.7 0.2.7.3.698 Ho spita .3.202666 084.8 l .8 2022-04-16 2022-04-16 Emergency [facility] [id number] [place] [address] 00:00:00 00:00:00 ASHLEY [address] 2022-04-06 2022-04-15 [facility] Travon Porras . 1.2.840.1 104 [id number] Methodi 21:20:00 13:07:00 Encounter Gutierrez Leal 80927.1.1 968 [facility]7 [facility] Puneet Lovelace .3.618641 l .8 2022-04-06 2022-04-15 Inpatient [facility] [id number] [place] [address] 00:00:00 00:00:00 PUNEET [address] 2022-04-13 2022-04-13 Anesthesia Claudio, 1.2.840.1 [id number] Methodi 13:41:00 14:30:00 Event Greg 56079.1.[address] Pauline 3.430.2.7 Hospit a .3.688186 l .8 2022-04-06 2022-04-06 Travel 1.2.840.1 1.2.286.133 8113 [id number] Methodi 00:00:00 00:00:[address] 3.430.2.7 0.2.7.3.698 Ho spita .3.852971 084.8 l .8 2022-03-08 2022-03-08 [facility] [id number] [facility] 07:07:00 07:07:00 79 [facility] 2022-03-08 2022-03-08 Outpatient Mic Warren [facility] F94 7 [facility] 07:07:00 07:07:00 [facility] 2022-03-06 2022-03-08 Phone nullFlavo [facility] Family 3467 [id number] Memoria 15:25:04 04:59:59 Message r Medicine 17 l Carrillo Zhang ryan 2022-03-06 2022-03-08 Phone nullFlavo [facility] Family 3467 [id number] Memoria 15:25:04 04:59:59 Message r Medicine 17 l Carrillo Zhang ryan 2022-03-06 2022-03-07 Outpatient [facility] [id number] 10:25:04 23:59:59 17 2022-03-03 2022-03-03 Emergency EM Chris [facility] [place] [facility] [id number] [facility] 12:08:00 15:51:00 00 [facility] 2022-03-03 2022-03-03 Emergency EM [facility] F[facility] [id number] [facility] 12:08:00 15:51:00 [facility] 2022-02-27 2022-02-27 Outpatient HARJEET King [facility] [id number] [id number] [facility] 07:10:00 07:10:00 Adam 92 [facility] 2022-01-18 2022-01-18 Ambulatory nullFlavo [facility] Family 3 [id number] Memoria 15:15:00 15:15:00 Pre-Reg r Medicine 54 l Carrillo Zhang n 2022-01-18 2022-01-18 Ambulatory nullFlavo [facility] 3 [id number] Memoria 15:15:00 15:15:00 Pre-Reg r Medicine 54 l Carrillo Zhang n 2022-01-18 2022-01-18 Outpatient MHIE MHIE [id number] Memoria 10:15:00 10:15:00 55 leonard Barrios 2022-01-18 2022-01-18 Outpatient Rodriguez, MG MG [id number] 10:15:00 10:15:00 Antonella N 54 2022-01-16 2022-01-16 Outpatient MHIE MHIE [id number] Memoria 10:30:00 10:30:00 56 leonard Denis 2022-01-16 2022-01-16 Outpatient MHIE MHIE [id number] Memoria 10:30:00 10:30:00 56 leonard Denis 2022-01-05 2022-01-05 Patient RasCris davisda 1.2.840.1 [id number] Methodi 00:00:00 00:00:[address] 3.430.2.7 Hospit a .3.526722 l .8 2021-12-30 2021-12-30 Office Ektod, 1.2.840.1 [id number] 4575 Methodi 10:15:00 11:21:59 Visit Mary 17387.1.[address] 3.430.2.7 Hospit a .3.282176 l .8 2021-12-30 2021-12-30 Travel 1.2.840.1 1.2.991.821 8418 641817 Methodi 00:00:00 00:00:[address] 3.430.2.7 0.2.7.3.698 Ho spita .3.183538 084.8 l .8 2021-12-30 2021-12-30 Outpatient EKTOD [facility] [id number] [place] 00:00:00 00:00:00 MARY [address] 2021-12-19 2021-12-28 [facility] Francisco Dean 1.2.840.1 1 [id number] Methodi 12:16:00 16:05:00 Encounter Michelle Golden 01957.1.[address] 3.430.2.7 Hospit a .3.849040 l .8 2021-12-19 2021-12-28 Inpatient [facility] 064 [place] 00:00:00 00:00:00 MICHELLE [address] 2021-12-27 2021-12-27 Anesthesia Robert Young 1.2.8 40.1 [id number] Methodi 13:07:00 14:43:00 Event Nishi Shelton 23592.1.[address] 3.430.2.7 Hospit a .3.274726 l .8 2021-12-26 2021-12-26 Telephone Bam 1.2.840.1 [id number] 2100 214527 Methodi 00:00:00 00:00:[address] 3.430.2.7 Hospit a .3.997577 l .8 2021-12-19 2021-12-21 Phone nullFlavo [facility] Family 3467 [id number] Memoria 17:07:02 05:59:59 Message r Medicine 16 l Carrillo Zhagn n 2021-12-19 2021-12-21 Phone nullFlavo [facility] Family 3467 [id number] Memoria 17:07:02 05:59:59 Message r Medicine 16 l Carrillo Zhang n 2021-12-19 2021-12-20 Outpatient [facility] [id number] 11:07:02 23:59:59 16 2021-12-19 2021-12-19 Travel 1.2.840.1 1.2.297.467 8141 [id number] Methodi 00:00:00 00:00:[address] 3.430.2.7 0.2.7.3.698 Ho spita .3.454160 084.8 l .8 2021-11-15 2021-11-15 Office [facility], 1.2.840.1 [id number] 9924 Methodi 16:30:00 16:34:07 Visit Lizaparkerkarthik 86949.1.[address] 3.430.2.7 Hospit a .3.059244 l .8 2021-11-15 2021-11-[address] [facility] [id number] 744 [place] 00:00:00 00:00:00 RAZIUDDIN [address] 2021-11-14 2021-11-14 Hospital [facility], 1.2.840.1 [id number] 44137 28265 Methodi 09:45:00 23:59:00 Encounter Lizagreta 55832.1.[address] 3.430.2.7 Hospit a .3.515828 l .8 2021-11-14 2021-11-14 Travel 1.2.840.1 1.2.663.338 0103 924851 Methodi 00:00:00 00:00:[address] 3.430.2.7 0.2.7.3.698 Ho spita .3.896100 084.8 l .8 2021-11-14 2021-11-[address] [facility] [id number] 554 [place] 00:00:00 00:00:00 RAZ[address]UDDIN [address] 2021-10-28 2021-10-30 Phone nullFlavo [facility] Family 3467 [id number] Memoria 19:33:53 05:59:59 Message r Medicine 15 leonard davis 2021-10-28 2021-10-30 Phone nullFlavo [facility] Family 3467 [id number] Memoria 19:33:53 05:59:59 Message r Medicine Sigrid davis 2021-10-28 2021-10-29 Outpatient [facility] [id number] 13:33:53 23:59:59 15 2021-10-19 2021-10-21 Phone nullFlavo [facility] Family 3467 [id number] Memoria 19:38:03 05:59:59 Message r Medicine 14 leonard Zhang n 2021-10-19 2021-10-21 Phone nullFlavo [facility] Family 3467 [id number] Memoria 19:38:03 05:59:59 Message r Medicine 14 leonard Zhang n 2021-10-19 2021-10-20 Outpatient [facility] MG [id number] 13:38:03 23:59:59 14 2021-10-17 2021-10-18 Outpatient nullFlavo [facility] 3 [id number] Memoria 21:15:00 05:59:59 r Medicine 53 leonard Zhang n 2021-10-17 2021-10-18 Outpatient nullFlavo [facility] Family 3 [id number] Memoria 21:15:00 05:59:59 r Medicine 53 leonard Zhang n 2021-10-17 2021-10-17 Outpatient Rodriguez, MG [facility] [id number] 15:15:00 23:59:59 Antonella N 53 2021-10-17 2021-10-17 Outpatient MHIE MHIE [id number] Memoria 15:15:00 15:15:00 54 leonard Denis 2021-09-20 2021-09-20 Office Ahmed, 1.2.840.1 [id number] 9027 Methodi 15:30:00 16:01:04 Visit Scott 53211.1.[address] 3.430.2.7 Hospit a .3.044153 l .8 2021-09-20 2021-09-20 Travel 1.2.840.1 1.2.526.115 6982 783344 Methodi 00:00:00 00:00:[address] 3.430.2.7 0.2.7.3.698 Ho spita .3.543482 084.8 l .8 2021-09-20 2021-09-20 Outpatient AHMED, [facility] [id number] 742 [place] 00:00:00 00:00:00 SCOTT [address] 2021-09-12 2021-09-13 Between nullFlavo [facility] Family 3467 [id number] Memoria 14:18:24 14:18:24 Visit r Medicine 62 leonard Zhang ryan 2021-09-12 2021-09-13 Between nullFlavo [facility] Family 3467 [id number] Memoria 14:18:24 14:18:24 Visit r Medicine 62 leonard Zhang ryan 2021-09-12 2021-09-13 Outpatient MHMG MHMG [id number] 08:18:24 08:18:24 62 2021-09-12 2021-09-13 Between nullFlavo [facility] Family 3467 [id number] Memoria 00:56:47 00:56:47 Visit r Medicine 61 leonard Zhang ryan 2021-09-12 2021-09-13 Between nullFlavo MG Family 3467 [id number] Memoria 00:56:47 00:56:47 Visit r Medicine 61 leonard Zhang ryan 2021-09-11 2021-09-12 Outpatient [facility] MG [id number] 18:56:47 18:56:47 61 2021-09-09 2021-09-10 Outpatient nullFlavo [facility] Family 3 [id number] Memoria 20:00:00 05:59:59 r Medicine 52 leonard Vizcaino Vicente ryan 2021-09-09 2021-09-10 Outpatient nullFlavo [facility] Family 3 [id number] Memoria 20:00:00 05:59:59 r Medicine 52 leonard Vizcaino Vicente ryan 2021-09-09 2021-09-09 Outpatient Rodriguez, MG MG [id number] 14:00:00 23:59:59 Antonella Davis 52 2021-09-09 2021-09-09 Outpatient MHIE MHIE [id number] Memoria 14:00:00 14:00:00 52 leonard Barrios 2021-09-06 2021-09-08 Phone nullFlavo MG Family [id number] [id number] Memoria 21:38:38 05:59:59 Message r Medicine 13 leonard davis 2021-09-06 2021-09-08 Phone nullFlavo MG Family 3467 [id number] Memoria 21:38:38 05:59:59 Message r Medicine 13 leonard davis 2021-09-06 2021-09-07 Outpatient [facility] MG [id number] 15:38:38 23:59:59 13 2021-09-07 2021-09-07 Office Bam, 1.2.840.1 [id number] 3283 Methodi 11:00:00 11:44:58 Visit Mary 96970.1.[address] 3.430.2.7 Hospit a .3.645323 l .8 2021-09-07 2021-09-07 Travel 1.2.840.1 1.2.753.704 5922 351572 Methodi 00:00:00 00:00:[address] 3.430.2.7 0.2.7.3.698 Ho spita .3.757846 084.8 l .8 2021-09-07 2021-09-07 Outpatient CHIPTOD [facility] [id number] 744 [place] 00:00:00 00:00:00 MARY [address] 2021-09-05 2021-09-06 Between nullFlavo [facility] Family [id number] [id number] Memoria 15:33:59 15:33:59 Visit r Medicine 59 l Vizcaino Vicente n 2021-09-05 2021-09-06 Between nullFlavo [facility] Family 3467 [id number] Memoria 15:33:59 15:33:59 Visit r Medicine 59 l Carrillo Zhang n 2021-09-05 2021-09-06 Outpatient [facility] [id number] 09:33:59 09:33:59 59 2021-07-14 2021-07-26 Inpatient [facility], [facility] 074 [place] 00:00:00 00:00:00 MICHELLE [address] 2021-07-19 2021-07-19 Outpatient GC_EAH_Brow PRIV PRIV [id number] [place] 00:00:00 00:00:00 n_J [id number] Medica l 2021-07-13 2021-07-13 Outpatient MARITA [facility] [id number] [place] 00:00:00 00:00:00 KRISTIAN [address] 2021-06-30 2021-06-30 Outpatient CHING [facility] [id number] [place] 00:00:00 00:00:00 RAZIUDDIN 273 Meth aiden 2021-06-07 2021-06-07 Outpatient EKERUO, [facility] [id number] [place] 00:00:00 00:00:00 MARY 787 Method i 2021-06-07 2021-06-07 Outpatient DAMYRTLEA, [facility] [id number] 587 [place] 00:00:00 00:00:00 NILESH 546 Method i 2021-05-19 2021-05-26 Inpatient MATHIVANAN, [facility] 064 [id number] [place] 00:00:00 00:00:00 COURTNEY 275 Method i 2021-05-12 2021-05-12 Outpatient AHMED, [facility] [id number] [place] 00:00:00 00:00:00 RAZIUDDIN 199 Meth aiden 2021-05-11 2021-05-11 Outpatient EKERUO, [facility] [id number] 337 [place] 00:00:00 00:00:00 MARY 640 Method i 2021-05-06 2021-05-06 Outpatient EKERUO, [facility] [id number] 412 [place] 00:00:00 00:00:00 MARY 435 Method i 2021-05-06 2021-05-06 Outpatient EKERUO, [facility] [id number] 412 [place] 00:00:00 00:00:00 MARY 537 Method i 2021-05-03 2021-05-03 Outpatient EKERUO, [facility] [id number] [place] 00:00:00 00:00:00 MARY 709 Method i 2021-04-08 2021-04-21 Inpatient SOLIPURAM, [facility] [id number] [place] 00:00:00 00:00:00 MICHELLE 685 Method i 2021-03-09 2021-03-09 Outpatient AHMED, [facility] [id number] [place] 00:00:00 00:00:00 RAZIUDDIN 101 Meth aiden 2021-02-24 2021-02-24 Outpatient [facility]Flavo [facility] 3467 [id number] Memoria 01:00:00 04:59:00 connie Barrios 58 l [place] Karen 2021-02-24 2021-02-24 Outpatient [facility]Flavo [facility] [id number] Memoria 01:00:00 04:59:00 r Wisner 58 l [place] Karen nn 2021-02-23 2021-02-23 Outpatient AHMED, [facility] PUL [id number] [facility] 20:00:00 23:59:00 RAZIUDDIN 2021-02-23 2021-02-23 Outpatient Ching, MHSL MHSL [id number] 20:00:00 23:59:00 Raziuddin 58 2021-02-10 2021-02-10 Outpatient AHMED, [facility] [id number] 900 [place] 00:00:00 00:00:00 RAZ[address]UDDIN [address] 2021-02-03 2021-02-08 Inpatient MARY ALICE, [facility] 064 [id number] [place] 00:00:00 00:00:00 COURTNEY [address] 2021-01-20 2021-01-20 Outpatient [facility] [id number] [place] 00:00:00 00:00:[address] 2021-01-18 2021-01-19 Outpatient nullFlavo [facility] Family 3 [id number] Memoria 19:30:00 04:59:59 r Medicine 51 l Carrillo Zhang n 2021-01-18 2021-01-19 Outpatient nullFlavo [facility] Family 3 [id number] Memoria 19:30:00 04:59:59 r Medicine 51 l Carrillo Zhang n 2021-01-18 2021-01-18 Outpatient Rodriguez, MG MG [id number] 14:30:00 23:59:59 Antonella Davis 51 2021-01-18 2021-01-18 Outpatient IE IE [id number] Memoria 14:30:00 14:30:00 51 l Denis 2021-01-18 2021-01-18 Outpatient [facility] [id number] [address] [place] [address] 00:00:00 00:00:[address] 2021-01-14 2021-01-15 Between nullFlavo [facility] Family [id number] Memoria 13:38:03 13:38:03 Visit r Medicine 57 l Carrillo Zhang n 2021-01-14 2021-01-15 Between nullFlavo [facility] Family [id number] Memoria 13:38:03 13:38:03 Visit r Medicine 57 l Carrillo Zhang n 2021-01-14 2021-01-15 Outpatient [facility] MG [id number] 08:38:03 08:38:03 57 2021-01-12 2021-01-12 Outpatient CHING, [facility] [id number] [place] 00:00:00 00:00:00 RAZIUDDIN 554 Meth aiden 2020-12-31 2021-01-05 Inpatient MARY AL[facility] [id number] [id number] [place] 00:00:00 00:00:00 COURTNEY 541 Method i 2020-12-17 2020-12-28 Inpatient MARY AL[facility] Vidya 2100 [id number] [place] 00:00:00 00:00:00 COURTNEY 559 Method i 2020-10-11 2020-10-18 Inpatient MARY ALICE [facility] 012 [id number] [place] 00:00:00 00:00:00 COURTNEY 271 Method i 2020-09-15 2020-09-16 Outpatient nullFlavo [facility] 3 [id number] Memoria 16:30:00 05:59:59 r Medicine 50 l Carrillo Zhang n 2020-09-15 2020-09-16 Outpatient nullFlavo [facility] Family 3 [id number] Memoria 16:30:00 05:59:59 r Medicine 50 l Carrillo Zhang n 2020-09-15 2020-09-15 Outpatient Rodriguez, [facility] MG [id number] 10:30:00 23:59:59 Antonella N 50 2020-09-15 2020-09-15 Outpatient MHIE IE [id number] Memoria 10:30:00 10:30:00 50 l Denis 2020 2020-09-07 Inpatient SOLIPURAM, [facility] [id number] [place] 00:00:00 00:00:00 MICHELLE 464 Method i 2020-08-13 2020-09-01 Inpatient SOLIPURAM, [facility] [id number] [id number] [place] 00:00:00 00:00:00 MICHELLE 557 Method i 2020-08-13 2020-08-14 Outpt Diag nullFlavo [facility] [id number] Memoria 18:10:00 04:59:00 Services r Outpatient 06 l Imaging Wisner [place] 2020-08-13 2020-08-14 Outpt Diag nullFlavo [facility] [id number] Memoria 18:10:00 04:59:00 Services r Outpatient 06 l Imaging Denis [place] 2020-08-13 2020-08-13 Outpatient Amilcar MH29 MH29 [id number] 13:10:00 23:59:00 Tyrell Davis 06 2020-08-11 2020-08-12 Between nullFlavo [facility] Family [id number] Memoria 17:58:19 17:58:19 Visit r Medicine 56 l Carrillo Zhang n 2020-08-11 2020-08-12 Between nullFlavo [facility] Family [id number] Memoria 17:58:19 17:58:19 Visit r Medicine 56 l Carrillo Zhang n 2020-08-11 2020-08-12 Outpatient MHMG [facility] [id number] 12:58:19 12:58:19 56 2020-08-03 2020-08-04 Outpatient nullFlavo [facility] Family 3 [id number] Memoria 15:15:00 04:59:59 r Medicine 49 l Carrillo Zhang n 2020-08-03 2020-08-04 Outpatient nullFlavo [facility] Family 3 [id number] Memoria 15:15:00 04:59:59 r Medicine 49 l Carrillo Zhang n 2020-08-03 2020-08-03 Outpatient Rodriguez, MG [facility] [id number] 10:15:00 23:59:59 Antonella Davis 49 2020-08-03 2020-08-03 Outpatient [facility] [id number] Memoria 10:15:00 10:15:00 49 l Wisner 2020-06-22 2020-06-23 Outpt Diag nullFlavo [facility] [id number] Memoria 17:02:00 04:59:00 Services r Outpatient 05 l Imaging Denis [place] 2020-06-22 2020-06-23 Outpt Diag nullFlavo [facility] [id number] Memoria 17:02:00 04:59:00 Services r Outpatient 05 l Imaging Denis [place] 2020-06-22 2020-06-22 Outpatient Amilcar, MH29 [id number] 12:02:00 23:59:00 Tyrell Davis 05 2020-06-17 2020-06-17 Ambulatory nullFlavo [facility] [id number] Memoria 19:00:00 19:00:00 Pre-Reg r Nephrology 46 leonard davis 2020-06-17 2020-06-17 Ambulatory nullFlavo [facility] [id number] Memoria 19:00:00 19:00:00 Pre-Reg r Nephrology 46 l Carrillo davis 2020-06-17 2020-06-17 Outpatient IE IE [id number] Memoria 14:00:00 14:00:00 46 leonard Barrios 2020-06-17 2020-06-17 Outpatient [facility] [id number] 14:00:00 14:00:00 Dacmoira, 46 Valarie Carballo 2020-06-10 2020-06-10 Outpatient MHIE IE [id number] Memoria 11:15:00 11:15:00 47 leonard Denis 2020-06-10 2020-06-10 Outpatient IE IE [id number] Memoria 11:15:00 11:15:00 47 leonard Denis 2020-06-02 2020-06-03 Outpatient nullFlavo [facility] [id number] Memoria 19:45:00 04:59:59 r Nephrology 48 l Carrillo davis 2020-06-02 2020-06-03 Outpatient nullFlavo [facility] [id number] Memoria 19:45:00 04:59:59 r Nephrology 48 l Carrillo Zhang ryan 2020-06-02 2020-06-02 Outpatient [facility] [id number] 14:45:00 23:59:59 Dacmoira 48 Valarie Carballo 2020-06-02 2020-06-02 Outpatient IE IE [id number] Memoria 14:45:00 14:45:00 48 leonard Denis 2020-05-20 2020-05-20 Outpatient RACHID, [facility] [id number] [address] [place] [address] 00:00:00 00:00:00 FABIOLA [address] 2020-03-23 2020-03-25 Phone nullFlavo [facility] [id number] Memoria 16:17:50 04:59:59 Message r Nephrology 12 leonard Zhang ryan 2020-03-23 2020-03-25 Phone nullFlavo [facility] [id number] Memoria 16:17:50 04:59:59 Message r Nephrology 12 l Carrillo Zhang n 2020-03-23 2020-03-24 Outpatient [facility] MG [id number] 11:17:50 23:59:59 12 2020-03-18 2020-03-19 [place] [id number] Memoria 19:00:00 04:59:59 r Nephrology 41 l Carrillo Zhang n 2020-03-18 2020-03-19 [place] [id number] Memoria 19:00:00 04:59:59 r Nephrology 41 l Carrillo Zhang n 2020-03-18 2020-03-18 Outpatient [place]- MG MG [id number] 14:00:00 23:59:59 Daca, 41 Valarie Haris 2020-03-18 2020-03-18 Outpatient MHIE IE [id number] Memoria 14:00:00 14:00:00 41 leonard Denis 2020-03-08 2020-03-10 Phone nullFlavo MG [id number] Memoria 18:35:51 04:59:59 Message r Nephrology 11 leonard Barrios 2020-03-08 2020-03-10 Phone nullFlavo MG [id number] Memoria 18:35:51 04:59:59 Message r Nephrology 11 leonard Barrios 2020-03-08 2020-03-09 Outpatient MG MG [id number] 13:35:51 23:59:59 11 2020-02-11 2020-02-12 Outpatient nullFlavo [facility] Family 3 [id number] Memoria 15:15:00 04:59:59 r Medicine 45 l Carrillo Zhang n 2020-02-11 2020-02-12 Outpatient nullFlavo [facility] Family 3 [id number] Memoria 15:15:00 04:59:59 r Medicine 45 l Carrillo Zhang n 2020-02-11 2020-02-11 Outpatient Rodriguez, MG MG [id number] 10:15:00 23:59:59 Antonella Davis 45 2020-02-11 2020-02-11 Ambulatory nullFlavo [facility] Family 3 [id number] Memoria 15:15:00 15:15:00 Pre-Reg r Medicine 44 l Carrillo Zhang n 2020-02-11 2020-02-11 Ambulatory nullFlavo [facility] Family 3 [id number] Memoria 15:15:00 15:15:00 Pre-Reg r Medicine 44 l Carrillo Zhang ryan 2020-02-11 2020-02-11 Outpatient MHIE MHIE [id number] Memoria 10:15:00 10:15:00 45 leonard Denis 2020-02-11 2020-02-11 Outpatient MHIE MHIE [id number] Memoria 10:15:00 10:15:00 44 leonard Barrios 2020-02-11 2020-02-11 Outpatient Rodriguez, MG MG [id number] 10:15:00 10:15:00 Antonella N 44 2020-02-05 2020-02-07 Phone nullFlavo MG [id number] Memoria 13:23:32 04:59:59 Message r Nephrology 10 leonard Rameycora davis 2020-02-05 2020-02-07 Phone nullFlavo MG [id number] Memoria 13:23:32 04:59:59 Message r Nephrology 10 leonard Vizcaino Vicente davis 2020-02-05 2020-02-06 Outpatient [facility] MG [id number] 08:23:32 23:59:59 10 2020-02-05 2020-02-06 Between nullFlavo [facility] Family 3467 [id number] Memoria 14:14:54 14:14:54 Visit r Medicine 53 l Carrillo Rameycora davis 2020-02-05 2020-02-06 Between nullFlavo [facility] Family 3467 [id number] Memoria 14:14:54 14:14:54 Visit r Medicine 53 l Vizcaino Vicente davis 2020-02-05 2020-02-06 Outpatient [facility] MG [id number] 09:14:54 09:14:54 52 2020-02-05 2020-02-05 Outpatient MHIE IE [id number] Memoria 11:30:00 11:30:00 44 leonard Barrios 2020-02-05 2020-02-05 Outpatient [facility]IE [id number] Memoria 11:30:00 11:30:00 44 leonard Barrios 2020-02-02 2020-02-04 Phone nullFlavo [facility] Family 3467 [id number] Memoria 20:00:15 04:59:59 Message r Medicine 09 l Vizcaino Vicente davis 2020-02-02 2020-02-04 Phone nullFlavo MG Family 3467 [id number] Memoria 20:00:15 04:59:59 Message r Medicine 09 leonard Zhang n 2020-02-02 2020-02-03 Outpatient [facility] [id number] 15:00:15 23:59:59 09 2020-01-30 2020-02-01 Phone nullFlavo MG Family 3467 [id number] Memoria 17:18:28 04:59:59 Message r Medicine 08 leonard Zhang n 2020-01-30 2020-02-01 Phone nullFlavo [facility] Family 3467 [id number] Memoria 17:18:28 04:59:59 Message r Medicine 08 leonard Zhang ryan 2020-01-30 2020-02-01 Phone nullFlavo [facility] [id number] Memoria 13:26:55 04:59:59 Message r Nephrology 07 leonard Zhang ryan 2020-01-30 2020-02-01 Phone nullFlavo MG [id number] Memoria 13:26:55 04:59:59 Message r Nephrology 07 leonard Zhang ryan 2020-01-30 2020-01-31 Outpatient [facility] [id number] 12:18:28 23:59:59 08 2020-01-30 2020-01-31 Outpatient [facility] [id number] 08:26:55 23:59:59 07 2019-12-16 2019-12-17 Outpatient nullFlavo MG Family 3 [id number] Memoria 20:15:00 05:59:59 r Medicine 43 l Carrillo Zhang ryan 2019-12-16 2019-12-17 Outpatient nullFlavo MG Family 3 [id number] Memoria 20:15:00 05:59:59 r Medicine 43 l Carrillo Zhang ryan 2019-12-16 2019-12-16 Outpatient Rodriguez, MHMG MG [id number] 14:15:00 23:59:59 Antonella Davis 43 2019-12-16 2019-12-16 Outpatient MHIE MHIE [id number] Memoria 14:15:00 14:15:00 Satinder Barrios 2019-11-13 2019-11-15 Phone nullFlavo [facility] Family 3467 [id number] Memoria 14:22:27 05:59:59 Message r Medicine 06 l Carrillo Rameyan n 2019-11-13 2019-11-15 Phone nullFlavo [facility] Family 3467 [id number] Memoria 14:22:27 05:59:59 Message r Medicine 06 leonard davis 2019-11-13 2019-11-14 Outpatient [facility] [id number] 08:22:27 23:59:59 06 2019-10-17 2019-10-19 Phone nullFlavo MG Family 3467 [id number] Memoria 16:06:04 05:59:59 Message r Medicine 05 leonard davis 2019-10-17 2019-10-19 Phone nullFlavo MG Family 3467 [id number] Memoria 16:06:04 05:59:59 Message r Medicine Bianka davis 2019-10-17 2019-10-18 Outpatient [facility] [id number] 10:06:04 23:59:59 05 2019-10-02 2019-10-03 Between nullFlavo MG [id number] Memoria 20:05:03 20:05:03 Visit r Nephrology 45 leonard Barrios 2019-10-02 2019-10-03 Between nullFlavo MG [id number] Memoria 20:05:03 20:05:03 Visit r Nephrology 45 leonard Barrios 2019-10-02 2019-10-03 Outpatient [facility] [id number] 14:05:03 14:05:03 45 2019-10-02 2019-10-03 [place] [id number] Memoria 20:45:00 05:59:59 r Nephrology 38 leonard davis 2019-10-02 2019-10-03 [place] [id number] Memoria 20:45:00 05:59:59 r Nephrology 38 leonard Zhang ryan 2019-10-02 2019-10-02 Outpatient Barshaquillewska- [facility] [id number] 14:45:00 23:59:59 Noel Toledo 2019-10-02 2019-10-02 Outpatient [facility] [id number] Memoria 14:45:00 14:45:00 38 leonard Barrios 2019-09-26 2019-09-27 Between nullFlavo MG [id number] Memoria 00:07:10 00:07:10 Visit r Nephrology 43 leonard Barrios 2019-09-26 2019-09-27 Between nullFlavo MG [id number] Memoria 00:07:10 00:07:10 Visit r Nephrology 43 leonard Barrios 2019-09-25 2019-09-26 Outpatient MG MG [id number] 18:07:10 18:07:10 43 2019-09-25 2019-09-25 Outpatient MHIE IE [id number] Memoria 09:00:00 09:00:00 39 leonard Barrios 2019-09-25 2019-09-25 Outpatient [facility]IE IE [id number] Memoria 09:00:00 09:00:00 39 leonard Barrios 2019-09-16 2019-09-17 Between nullFlavo MG Family [id number] Memoria 21:47:12 21:47:12 Visit r Medicine 41 leonard Zhang ryan 2019-09-16 2019-09-17 Between nullFlavo MG Family [id number] Memoria 21:47:12 21:47:12 Visit r Medicine 41 leonard Zhang ryan 2019-09-16 2019-09-17 Outpatient MG MG [id number] 15:47:12 15:47:12 41 2019-08-19 2019-08-20 Between nullFlavo MG Family [id number] Memoria 22:13:13 22:13:13 Visit r Medicine 40 leonard Zhang ryan 2019-08-19 2019-08-20 Between nullFlavo MG Family [id number] Memoria 22:13:13 22:13:13 Visit r Medicine 40 leonard Zhang ryan 2019-08-19 2019-08-20 Outpatient MG MG [id number] 17:13:13 17:13:13 40 2019-08-15 2019-08-16 Outpatient nullFlavo MG Family 3 [id number] Memoria 14:45:00 04:59:59 r Medicine 40 leonard Zhang ryan 2019-08-15 2019-08-16 Outpatient nullFlavo [facility] Family 3 [id number] Memoria 14:45:00 04:59:59 r Medicine 40 leonard Vizcaino Vicente davis 2019-08-15 2019-08-15 Outpatient Rodriguez, MG MG [id number] 09:45:00 23:59:59 Antonella N 40 2019-08-15 2019-08-15 Outpatient [facility] [id number] Memoria 09:45:00 09:45:00 40 leonard Denis 2019-08-07 2019-08-07 Ambulatory nullFlavo [facility] Family 3 [id number] Memoria 16:00:00 16:00:00 Pre-Reg r Medicine 36 leonard Zhang n 2019-08-07 2019-08-07 Ambulatory nullFlavo [facility] Family 3 [id number] Memoria 16:00:00 16:00:00 Pre-Reg r Medicine 36 leonard Zhagn n 2019-08-07 2019-08-07 Outpatient [facility]IE [facility] [id number] Memoria 11:00:00 11:00:00 36 leonard Denis 2019-08-07 2019-08-07 Outpatient Rodriguez, MG MG [id number] 11:00:00 11:00:00 Antonella N 36 2019-07-31 2019-08-01 [place] [id number] Memoria 15:00:00 04:59:59 r Nephrology 35 leonard Zhang n 2019-07-31 2019-08-01 [place] [id number] Memoria 15:00:00 04:59:59 r Nephrology 35 leonard Zhang n 2019-07-31 2019-07-31 Outpatient Rodriguez, MG MG [id number] 10:00:00 23:59:59 Antonella N 35 2019-07-31 2019-07-31 Outpatient [facility]IE [facility] [id number] Memoria 12:00:00 12:00:00 37 leonard Barrios 2019-07-31 2019-07-31 Outpatient [facility]IE MHIE [id number] Memoria 12:00:00 12:00:00 37 leonard Barrios 2019-07-31 2019-07-31 Outpatient [facility]IE [facility] [id number] Memoria 10:00:00 10:00:00 35 leonard Barrios 2019-07-03 2019-07-05 Phone nullFlavo MG Family [id number] Memoria 15:15:06 04:59:59 Message r Medicine 04 leonard Zhang n 2019-07-03 2019-07-05 Phone nullFlavo [facility] Family [id number] Memoria 15:15:06 04:59:59 Message r Medicine 04 leonard davis 2019-07-03 2019-07-05 Phone nullFlavo MG [id number] Memoria 15:10:51 04:59:59 Message r Nephrology 03 leonard davis 2019-07-03 2019-07-05 Phone nullFlavo MG [id number] Memoria 15:10:51 04:59:59 Message r Nephrology 03 leonard davis 2019-07-03 2019-07-04 Outpatient MG MG [id number] 10:15:06 23:59:59 04 2019-07-03 2019-07-04 Outpatient MG MG [id number] 10:10:51 23:59:59 03 2019-07-03 2019-07-03 [place] [id number] Memoria 20:00:00 20:00:00 Pre-Reg r Nephrology 34 leonard davis 2019-07-03 2019-07-03 [place] [id number] Memoria 20:00:00 20:00:00 Pre-Reg r Nephrology 34 leonard davis 2019-07-03 2019-07-03 Outpatient [facility] [id number] Memoria 15:00:00 15:00:00 34 leonard Barrios 2019-07-03 2019-07-03 Outpatient Baranowska- MG [facility] [id number] 15:00:00 15:00:00 Angela Toledo 2019-06-29 2019-06-30 Between nullFlavo MG [id number] Memoria 20:15:16 20:15:16 Visit r Nephrology 34 leonard Barrios 2019-06-29 2019-06-30 Between nullFlavo MG [id number] Memoria 20:15:16 20:15:16 Visit r Nephrology 34 leonard Barrios 2019-06-29 2019-06-30 Outpatient MG MG [id number] 15:15:16 15:15:16 34 2019-06-11 2019-06-13 Phone nullFlavo MG [id number] Memoria 15:29:54 04:59:59 Message r Nephrology 02 leonard Barrios 2019-06-11 2019-06-13 Phone nullFlavo MG [id number] Memoria 15:29:54 04:59:59 Message r Nephrology 02 leonard Barrios 2019-06-11 2019-06-12 Outpatient [facility] MG [id number] 10:29:54 23:59:59 02 2019-06-12 2019-06-12 [place] [id number] Memoria 16:30:00 16:30:00 Pre-Reg r Nephrology 29 leonard davis 2019-06-12 2019-06-12 [place] [id number] Memoria 16:30:00 16:30:00 Pre-Reg r Nephrology 29 leonard davis 2019-06-12 2019-06-12 [place] [id number] Memoria 16:15:00 16:15:00 Pre-Reg r Nephrology 30 leonard davis 2019-06-12 2019-06-12 [place] [id number] Memoria 16:15:00 16:15:00 Pre-Reg r Nephrology 30 leonard davis 2019-06-12 2019-06-12 Ambulatory nullFlavo [facility] Family 3 [id number] Memoria 15:15:00 15:15:00 Pre-Reg r Medicine 31 leonard davis 2019-06-12 2019-06-12 Ambulatory nullFlavo [facility] Family 3 [id number] Memoria 15:15:00 15:15:00 Pre-Reg r Medicine 31 leonard davis 2019-06-12 2019-06-12 Outpatient MHIE IE [id number] Memoria 11:30:00 11:30:00 29 leonard Barrios 2019-06-12 2019-06-12 Outpatient Baran[place]ska- MG MG [id number] 11:30:00 11:30:00 Otis Toledo 2019-06-12 2019-06-12 Outpatient MHIE MHIE [id number] Memoria 11:15:00 11:15:00 30 leonard RameyWisner 2019-06-12 2019-06-12 Outpatient Baranowska- [facility] MG [id number] 11:15:00 11:15:00 Bob oTledobieta J 2019-06-12 2019-06-12 Outpatient [facility]IE MHIE [id number] Memoria 10:15:00 10:15:00 31 leonard Barrios 2019-06-12 2019-06-12 Outpatient Rodriguez, MG [facility] [id number] 10:15:00 10:15:00 Antonella Davis 31 2019-06-09 2019-06-10 Inpatient Chelsea [facility] [place] [id number] [place] 10:05:00 17:55:00 EDUIN [facility] 2019-05-12 2019-05-14 Outpatient Chelsea [facility] [place] [id number] [place] 21:36:00 19:00:00 EDUIN Med[facility] 2019-05-12 2019-05-13 Outpatient nullFlavo MH Urgent [id number] Memoria 20:40:00 04:59:59 r Care [address] l [facility] 2019-05-12 2019-05-13 Outpatient nullFlavo MH Urgent [id number] Memoria 20:40:00 04:59:59 r Care 33 l Lise Wisner 2019-05-12 2019-05-12 Outpatient Van [facility] [id number] 15:40:00 23:59:59 Radha Gallardo Carlito chavez De 2019-05-12 2019-05-12 Outpatient [facility]IE [facility] [id number] Memoria 15:40:00 15:40:00 33 leonard Barrios 2019-03-27 2019-03-28 Outpatient nullFlavo [facility] Family 3 [id number] Memoria 15:15:00 04:59:59 r Medicine 32 l Carrillo davis 2019-03-27 2019-03-28 Outpatient nullFlavo [facility] Family 3 [id number] Memoria 15:15:00 04:59:59 r Medicine 32 l Carrillo davis 2019-03-27 2019-03-27 Outpatient Ronnyanowska- [facility] [id number] 10:15:00 23:59:59 DacPhilly pizarro 2019-03-27 2019-03-27 Outpatient MHIE MHIE [id number] Memoria 10:15:00 10:15:00 Philly Barrios 2019-01-05 2019-01-06 Between nullFlavo [facility] Family [id number] Memoria 19:00:16 19:00:16 Visit r Medicine 29 leonard Zhang n 2019-01-05 2019-01-06 Between nullFlavo MG Family [id number] Memoria 19:00:16 19:00:16 Visit r Medicine 29 leonard Zhang n 2019-01-05 2019-01-06 Outpatient MG MG [id number] 14:00:16 14:00:16 29 2019-01-02 2019-01-03 Between nullFlavo MG [id number] Memoria 15:02:37 15:02:37 Visit r Nephrology 27 leonard Zhang n 2019-01-02 2019-01-03 Between nullFlavo MG [id number] Memoria 15:02:37 15:02:37 Visit r Nephrology 27 leonard Zhang n 2019-01-02 2019-01-03 Outpatient MG MG [id number] 10:02:37 10:02:37 27 2019-01-02 2019-01-03 [place] [id number] Memoria 18:45:00 04:59:59 r Nephrology 28 leonard Zhang n 2019-01-02 2019-01-03 [place] [id number] Memoria 18:45:00 04:59:59 r Nephrology 28 leonard Zhang n 2019-01-02 2019-01-03 Outpatient nullFlavo MG Family 3 [id number] Memoria 14:15:00 04:59:59 r Medicine 22 leonard Zhang n 2019-01-02 2019-01-03 Outpatient nullFlavo MG Family 3 [id number] Memoria 14:15:00 04:59:59 r Medicine 22 leonard Zhang n 2019-01-02 2019-01-02 Outpatient Baranowska- MG MG [id number] 13:45:00 23:59:59 Reynold Toledo 2019-01-02 2019-01-02 Outpatient Rodriguez, MG MG [id number] 09:15:00 23:59:59 Antonella Davis 22 2019-01-02 2019-01-02 Outpatient [facility] [id number] Memoria 13:45:00 13:45:00 28 l Denis 2019-01-02 2019-01-02 Outpatient [facility] [id number] Memoria 09:15:00 09:15:00 22 leonard Denis 2018-12-31 2019-01-01 Between nullFlavo MG [id number] Memoria 23:59:47 23:59:47 Visit r Nephrology 26 leonard Zhang ryan 2018-12-31 2019-01-01 Between nullFlavo MG [id number] Memoria 23:59:47 23:59:47 Visit r Nephrology 26 leonard Zhang ryan 2018-12-31 2019-01-01 Outpatient [facility] [id number] 18:59:47 18:59:47 26 2018-12-27 2018-12-28 Between nullFlavo MG [id number] Memoria 22:00:33 22:00:33 Visit r Nephrology 24 leonard Zhang ryan 2018-12-27 2018-12-28 Between nullFlavo MG [id number] Memoria 22:00:33 22:00:33 Visit r Nephrology 24 leonard Zhang ryan 2018-12-27 2018-12-28 Outpatient [facility] [id number] 16:00:33 16:00:33 24 2018-12-27 2018-12-28 Between nullFlavo MG [id number] Memoria 04:48:44 04:48:44 Visit r Nephrology 23 leonard Zhang ryan 2018-12-27 2018-12-28 Between nullFlavo MG [id number] Memoria 04:48:44 04:48:44 Visit r Nephrology 23 leonard Zhang ryan 2018-12-26 2018-12-27 Outpatient [facility] [id number] 22:48:44 22:48:44 23 2018-11-14 2018-11-14 [place] [id number] Memoria 20:30:00 20:30:00 Pre-Reg r Nephrology 27 leonard Zhang ryan 2018-11-14 2018-11-14 [place] [id number] Memoria 20:30:00 20:30:00 Pre-Reg r Nephrology 27 leonard Zhang ryan 2018-11-14 2018-11-14 [place] [id number] Memoria 18:40:00 18:40:00 Pre-Reg r Nephrology 24 leonard davis 2018-11-14 2018-11-14 [place] [id number] Memoria 18:40:00 18:40:00 Pre-Reg r Nephrology 24 leonard davis 2018-11-14 2018-11-14 Outpatient [facility]IE [facility] [id number] Memoria 14:30:00 14:30:00 27 leonard Denis 2018-11-14 2018-11-14 [id number] 14:30:00 14:30:00 Cordell Toledo 2018-11-14 2018-11-14 [facility] [id number] 14:30:00 14:30:00 Cordell Toledo 2018-11-14 2018-11-14 Outpatient IE IE [id number] Memoria 12:40:00 12:40:00 24 leonard Barrios 2018-11-14 2018-11-14 Outpatient [facility] [id number] 12:40:00 12:40:00 Yesi Toledo 2018-11-14 2018-11-14 [facility] [id number] 12:40:00 12:40:00 Yesi Toledo 2018-11-07 2018-11-07 [place] [id number] Memoria 15:30:00 15:30:00 Pre-Reg r Internal 25 [facility] Denis Vizcaino 2018-11-07 2018-11-07 [place] [id number] Memoria 15:30:00 15:30:00 Pre-Reg r Internal 25 Narayan Vizcaino 2018-11-07 2018-11-07 Outpatient MHIE IE [id number] Memoria 09:30:00 09:30:00 25 leonard Barrios 2018-11-07 2018-11-07 Outpatient MG MG [id number] 09:30:00 09:30:00 25 2018-07-11 2018-08-10 [place] [id number] Memoria 12:45:00 12:45:00 Pre-Reg r Internal 23 leonard Vizcaino 2018-07-11 2018-08-10 [place] [id number] Memoria 12:45:00 12:45:00 Pre-Reg r Internal 23 leonard Vizcaino 2018-07-11 2018-08-10 Outpatient MG MG [id number] 07:45:00 07:45:00 23 2018-07-18 2018-07-19 [place] [id number] Memoria 19:15:00 04:59:59 r Nephrology 26 leonard davis 2018-07-18 2018-07-19 [place] [id number] Memoria 19:15:00 04:59:59 r Nephrology 26 leonard davis 2018-07-18 2018-07-19 [place] [id number] Memoria 18:00:00 04:59:59 r Nephrology 21 leonard Zhang ryan 2018-07-18 2018-07-19 [place] [id number] Memoria 18:00:00 04:59:59 r Nephrology 21 leonard davis 2018-07-18 2018-07-18 [facility] [id number] 14:15:00 23:59:59 Daca, Kim Valarie Haris 2018-07-18 2018-07-18 Outpatient [place]- MG MG [id number] 13:00:00 23:59:59 Daca, 21 Valarie Haris 2018-07-18 2018-07-18 Outpatient IE IE [id number] Memoria 14:15:00 14:15:00 26 leonard Barrios 2018-07-18 2018-07-18 Outpatient MHIE IE [id number] Memoria 13:00:00 13:00:00 21 leonard Denis 2018-07-11 2018-07-11 Outpatient MHIE IE [id number] Memoria 07:45:00 07:45:00 23 leonard Wisner 2018-06-11 2018-06-12 Outpatient nullFlavo MG Family 3 [id number] Memoria 18:30:00 04:59:59 r Medicine 20 leonard Zhang ryan 2018-06-11 2018-06-12 Outpatient nullFlavo MG Family 3 [id number] Memoria 18:30:00 04:59:59 r Medicine 20 leonard Zhang n 2018-06-11 2018-06-11 Outpatient Rodriguez, MG MG [id number] 13:30:00 23:59:59 Antonella N 20 2018-06-11 2018-06-11 Outpatient MHIE MHIE [id number] Memoria 13:30:00 13:30:00 20 leonard Barrios 2018-01-10 2018-01-11 [place] [id number] Memoria 16:00:00 04:59:59 r Nephrology 19 leonard Zhang n 2018-01-10 2018-01-11 [place] [id number] Memoria 16:00:00 04:59:59 r Nephrology 19 leonard Zhang ryan 2018-01-10 2018-01-10 Outpatient [place]- MG MG [id number] 11:00:00 23:59:59 Daca, Ludivina Carballo 2018-01-10 2018-01-10 [facility] [id number] 11:00:00 23:59:59 Daca, Ludivina Spencereta Haris 2018-01-10 2018-01-10 Outpatient MHIE IE [id number] Memoria 11:00:00 11:00:00 19 leonard Barrios 2018-01-09 2018-01-10 Outpatient nullFlavo MG Family 3 [id number] Memoria 15:00:00 04:59:59 r Medicine 18 leonard Zhang ryan 2018-01-09 2018-01-10 Outpatient nullFlavo MG Family 3 [id number] Memoria 15:00:00 04:59:59 r Medicine 18 leonard Zhang n 2018-01-09 2018-01-09 Outpatient Rodriguez, MG MG [id number] 10:00:00 23:59:59 Antonella N 18 2018-01-09 2018-01-09 Outpatient Rodriguez, MHMG MG [id number] 10:00:00 23:59:59 Antonella N 18 2018-01-09 2018-01-09 Outpatient MHIE IE [id number] Memoria 10:00:00 10:00:00 18 leonard Barrios 2017-07-19 2017-07-19 Outpatient MHIE MHIE [id number] Memoria 10:40:00 10:40:00 16 leonard Denis 2017-07-19 2017-07-19 Outpatient MHIE MHIE [id number] Memoria 10:40:00 10:40:00 16 leonard Denis 2017-06-27 2017-06-27 Outpatient MHIE MHIE [id number] Memoria 11:30:00 11:30:00 17 leonard Denis 2017-06-27 2017-06-27 Outpatient MHIE MHIE [id number] Memoria 11:30:00 11:30:00 17 leonard Denis 2017-03-01 2017-03-01 Outpatient MHIE MHIE [id number] Memoria 11:40:00 11:40:00 11 leonard Denis 2017-03-01 2017-03-01 Outpatient MHIE MHIE [id number] Memoria 11:40:00 11:40:00 11 leonard Denis 2016-12-26 2016-12-26 Outpatient MHIE MHIE [id number] Memoria 14:30:00 14:30:00 15 leonard Denis 2016-12-26 2016-12-26 Outpatient MHIE MHIE [id number] Memoria 14:30:00 14:30:00 15 leonard Denis 2016-11-27 2016-11-27 Outpatient MHIE MHIE [id number] Memoria 10:00:00 10:00:00 08 leonard Denis 2016-11-27 2016-11-27 Outpatient MHIE MHIE [id number] Memoria 10:00:00 10:00:00 08 leonard Barrios 2016-11-17 2016-11-17 Bedded nullFlavo [facility] [id number] Memoria 11:48:35 14:30:00 Outpatient r Denis 13 l [place] Karen nn 2016-11-17 2016-11-17 Bedded nullFlavo [facility] [id number] Memoria 11:48:35 14:30:00 Outpatient connie Barrios 13 l [place] Karen nn 2016-11-17 2016-11-17 Outpatient ADRIAN SmithSL MHSL [id number] 05:48:35 08:30:00 Reinaldo Ware 2016-11-09 2016-11-09 Outpatient MHIE MHIE [id number] Memoria 13:15:00 13:15:00 14 leonard Denis 2016-11-09 2016-11-09 Outpatient MHIE IE [id number] Memoria 13:15:00 13:15:00 14 leonard Denis 2016-10-18 2016-10-18 Outpatient MHIE MHIE [id number] Memoria 09:30:00 09:30:00 12 leonard Denis 2016-10-18 2016-10-18 Outpatient MHIE MHIE [id number] Memoria 09:30:00 09:30:00 13 leonard Denis 2016-10-18 2016-10-18 Outpatient MHIE MHIE [id number] Memoria 09:30:00 09:30:00 12 leonard Denis 2016-10-18 2016-10-18 Outpatient MHIE MHIE [id number] Memoria 09:30:00 09:30:00 13 leonard Denis 2016-10-12 2016-10-12 Outpatient MHIE MHIE [id number] Memoria 10:20:00 10:20:00 09 leonard Barrios 2016-10-12 2016-10-12 Outpatient MHIE IE [id number] Memoria 10:20:00 10:20:00 09 leonard Denis 2016-07-13 2016-07-13 Outpatient MHIE MHIE [id number] Memoria 13:00:00 13:00:00 04 leonard Barrios 2016-07-13 2016-07-13 Outpatient MHIE MHIE [id number] Memoria 13:00:00 13:00:00 04 leonard Barrios 2016-05-24 2016-05-24 Outpatient MHIE IE [id number] Memoria 11:15:00 11:15:00 06 leonard Barrios 2016-05-24 2016-05-24 Outpatient MHIE IE [id number] Memoria 11:15:00 11:15:00 06 leonard Barrios 2016-04-13 2016-05-13 OP Therapy nullFlavo SMR [id number] Memoria 13:00:00 04:59:00 Patients connie Stout 03 leonard Barrios 2016-04-13 2016-05-13 OP Therapy nullFlavo SMR [id number] Memoria 13:00:00 04:59:00 Patients connie Stout 03 leonard Barrios 2016-04-13 2016-05-12 Outpatient Elizabeth 2.16.840. 2.16.840.1. 3 [id number] 08:00:00 23:59:00 Jose Francisco Rai [id number] 3.615.55 5.55 2016-03-14 2016-04-13 OP Therapy nullFlavo SMR [id number] Memoria 17:39:00 04:59:00 Patients r Girish 02 leonard Barrios 2016-03-14 2016-04-13 OP Therapy nullFlavo SMR [id number] Memoria 17:39:00 04:59:00 Patients r Girish 02 leonard Barrios 2016-03-14 2016-04-12 Outpatient Elizabeth, 2.16.840. 2.16.840.1. 3 [id number] 12:39:00 23:59:00 Jose Francisco Rai [id number] 3.615.55 5.55 2016-03-09 2016-04-08 OP Therapy nullFlavo SMR Sugar [id number] Memoria 19:00:00 04:59:00 Patients r [place] leonard Barrios 2016-03-09 2016-04-08 OP Therapy nullFlavo SMR Sugar [id number] Memoria 19:00:00 04:59:00 Patients r [place] leonard Barrios 2016-03-09 2016-04-07 Outpatient Elizabeth, 2.16.840. 2.16.840.1. 3 [id number] 14:00:00 23:59:00 Jose Francisco Rai [id number] 3.615.69 5.69 2016-03-13 2016-03-14 Outpt Diag nullFlavo [facility] [id number] Memoria 16:14:00 04:59:00 Services r Outpatient 04 l Imaging Denis [place] 2016-03-13 2016-03-14 Outpt Diag nullFlavo [facility] [id number] Memoria 16:14:00 04:59:00 Services r Outpatient 04 l Imaging Denis [place] 2016-03-13 2016-03-13 Outpatient [address] [id number] 11:14:00 23:59:00 Jv [place] 2016-02-08 2016-03-09 OP Therapy nullFlavo SMR Sugar [id number] Memoria 19:00:00 04:59:00 Patients r [place] 00 leonard Barrios 2016-02-08 2016-03-09 OP Therapy nullFlavo SMR Sugar [id number] Memoria 19:00:00 04:59:00 Patients r [place] 00 leonard Barrios 2016-02-08 2016-03-08 Outpatient Elizabeth 2.16.840. 2.16.840.1. 3 [id number] 14:00:00 23:59:00 Jose Francisco Rai [id number]. [id number] 3.615.69 5.69 2016-03-02 2016-03-02 Outpatient IE [facility] [id number] Memoria 10:20:00 10:20:00 01 leonard Barrios 2016-03-02 2016-03-02 Outpatient IE IE [id number] Memoria 10:20:00 10:20:00 01 leonard Barrios 2016-02-29 2016-03-01 Outpt Diag nullFlavo [facility] [id number] Memoria 14:59:00 04:59:00 Services r Outpatient 03 l Imaging Denis [place] 2016-02-29 2016-03-01 Outpt Diag nullFlavo [facility] [id number] Memoria 14:59:00 04:59:00 Services r Outpatient 03 l Imaging Denis [place] 2016-02-29 2016-02-29 Outpatient Marsha Lazo [id number] 09:59:00 23:59:00 Atkins 2016-01-20 2016-01-21 Outpt Diag nullFlavo [facility] [id number] Memoria 18:11:00 04:59:00 Services r Outpatient 01 l Imaging Denis [place] 2016-01-20 2016-01-21 Outpt Diag nullFlavo [facility] [id number] Memoria 18:11:00 04:59:00 Services r Outpatient 01 l Imaging Denis [place] 2016-01-20 2016-01-20 Outpatient Marsha Lazo [id number] 13:11:00 23:59:00 Atkins 2015-12-30 2015-12-30 Outpatient nullFlavo [facility] [id number] Memoria 12:50:31 19:25:00 r Denis 2015-12-30 2015-12-30 Outpatient 2.16.840. 2.16.840.1. 3 [id number] Memoria 12:50:31 19:25:00 [id number] 3.2081.20 81.2000 Vicente n [facility] 2015-12-30 2015-12-30 Outpatient nullFlavo [facility] [id number] Memoria 12:50:31 19:25:00 r l Denis 2015-11-30 2015-12-01 Outpt Diag nullFlavo [facility] [id number] Memoria 12:58:00 05:59:00 Services r Outpatient 00 l Imaging Wisner [place] 2015-11-30 2015-12-01 Outpt Diag nullFlavo [facility] [id number] Memoria 12:58:00 05:59:00 Services r Outpatient 00 l Imaging Wisner [place] 2015-11-30 2015-11-30 Outpatient Lazo, Marsha [address] [id number] 06:58:00 23:59:00 Atkins 00 2015-11-19 2015-11-19 Outpatient MHIE IE [id number] Memoria 10:15:00 10:15:00 02 l Wisner 2015-11-19 2015-11-19 Outpatient MHIE IE [id number] Memoria 10:15:00 10:15:00 02 leonard Barrios 2015-09-02 2015-09-02 Outpatient [facility] IE [id number] [facility] 11:30:00 11:30:00 00 leonard Barrios 2015-09-02 2015-09-02 Outpatient [facility] IE [id number] [facility] 11:30:00 11:30:00 00 leonard Denis 2013-12-18 2013-12-18 Outpatient nullFlavo [facility] [id number] Memoria 01:16:00 05:59:00 r Denis [id number] [place] 1 [facility] 2013-12-18 2013-12-18 Outpatient [facility]Fl[facility] [id number] [facility] 01:16:00 05:59:00 r Denis [id number] [place] 1 [facility] 2013-12-17 2013-12-17 Outpatient [facility] [id number] 19:16:00 23:59:00 , Yusef [id number] [place] [id number] 2013-12-17 Outpatient nullFlavo [id number] [facility] 19:16:00 19:16:00 r [place] 01 l [facility] 2013-12-17 2013-12-17 Outpatient nullFlavo [id number] [facility] 19:16:00 19:16:00 r [place] 01 l [facility] 2013-12-02 2013-12-02 Outpatient nullFlavo [id number] Memoria 19:43:00 19:43:00 r [place] 00 l [facility] 2013-12-02 2013-12-02 Outpatient nullFlavo [id number] Memoria 19:43:00 19:43:00 r [place] 00 l [facility] Results Test Description Test Time Test Comments Results Result Comments Source ECG 12 lead 2022-08-27 22:49:39 Test Item Value Reference Range Interpretation Comme nts Ventricular rate (test code = 253) QRSD interval (test code = 260) QT interval (test code = 264) QTC interval (test code = 265) QRS axis 1 (test code = 268) T wave axis (test code = 270) EKG impression (test code = 273) Atrial fibrillation-Rightward axis -ST & T wave abnormality, consider inferior ischemia-Abnormal ECG-In automated comparison with ECG of 28-APR-2022 02:20,-QRS axis shifted right- Religionuzair [id number] (COVID-19) RNA [Presence] in Respiratory specimen by DANIEL with probe [id number] 04:29:38 Test Item Value Reference Range Interpretation Comments SARS-CoV-2 (COVID-19) RNA Not detected [Presence] in Respiratory specimen by DANIEL with probe detection (test code = 31243-6) Whether patient is employed in a Unknown healthcare setting (test code = 42323-1) Whether the patient has symptoms Unknown related to condition of interest (test code = 64800-9) Whether the patient was Unknown hospitalized for condition of interest (test code = 56350-9) Whether the patient was admitted Unknown to intensive care unit (ICU) for condition of interest (test code = 47240-3) Whether patient resides in a Unknown congregate care setting (test code = 23598-1) status (test code = Unknown 47119-7) Date and time of symptom onset Unknown (test code = 98988-1) [facility] [id number] 17:49:00 Test Item Value Reference Interpretation Comments Range PTH (test code = 146 pg/mL 16-77 H Interpreti ve Guide Intact 2731-8) PTH Calcium-------- ---- ---Normal Parathyroid Nor mal NormalHypoparat hyroidism Low or Low Norm al LowHyperparathy roidism Primary Normal or High High Secondary High Normal or Low Tertiary High HighNon-Parathy roid Hypercalcemia L ow or Low Normal High GUICHO (test code = FASTING:NO GUICHO) FASTING: NO RAC (test code = Performing RAC) Organization Information: Site ID: RGA [facility] Address: [address] [place] [id number] Director: Yusef Boyce Lab Abnormal Interpretation (test code = 19917-0) [facility] stimulating [id number] 17:49:00 Test Item Value Reference Range Interpretation Comments TSH (test See_Comment [Automated mes hermes] code = The system ic h 3016-3) generated this result transmit yahir reference range : 0.40 - 4.50 mIU /L. The reference r edy was not used to interpret this result as normal/abnormal . GUICHO (test FASTING:NO FASTING: code = GUICHO) NO RAC (test Performing code = RAC) Organization Information: Site ID: RGA Name: [facility] Address: [address] [place] [id number] Director: Yusef Boyce [facility]Vit[facility] D 25 hydroxy [id number] 17:49:00 Test Item Value Reference Range Interpretation Comments Vitamin D, 82 ng/mL 30-100 Vitamin D Statu s 25-hydroxy (test 25-OH Vitam in D: code = 1989-3) Deficiency: < 20 ng/mLInsufficie ncy : 20 - 29 ng/mLOptimal: > or = 30 ng/mL For 25-OH Vitamin D testing on patients on D2-supplementat ion and patients fo r whom quantitati on of D2 and D3 fractions is required, the QuestAssureD(TM )25 -OH VIT D, (D2,D3), LC/MS/ MS is recommended: order code 9288 8 (patients >2yrs).See Note 1 Note 1 For additional information, please refer to [email or web address] [email or web address] m/[email or web address] (T his link is being provided for informational/e gini ational purpose s only.) GUICHO (test code = FASTING:NO FASTING: GUICHO) NO RAC (test code = Performing RAC) Organization Information: Site ID: RGA Name: [facility] Address: [address] [place] [id number] Director: Yusef Boyce [facility] [id number] 04:51:00 Test Item Value Reference Range Interpretation Comments POC glucose (test code = 129 mg/dL 65-99 H Ope rator Name: [id number]) Alfred [place]~Radha ce ID: [id number]~Laura table : HMW Notified correction officer head Interpretation (test Abnormal code = 17293-5) [facility] HospitalTransthoracic Echocardiogram Complete, (w Contrast, Strain and 3D if needed)2022-06-26 14:28:07 Test Item Value Reference Interpretation Comments Range RA pressure (test mmHg code = 9357931013) EF (test code = 50 % 54-74 A 2649138548) IVS,d (test code = 0.92 cm 0.6-0.9 A 7747058189) IVS s 2D (test code 1.08 cm = 9395393311) LVPWD,d (test code = 0.93 cm 0.60-1.19 2919533013) LVPW s PLAX (test 1.13 cm code = 8402682156) LV,s (test code = 2.94 cm 1011920837) LVOT Diam,S (test 1.98 cm code = 5009058514) LV BURGESS VOL (test 66.04 ml 46-106 code = 2016065968) LV SYS VOL (test 33.32 ml 14-42 code = 3010135503) MV Peak E Jonathan (test 1.61 m/s code = 2641225258) MV Peak A Jonathan (test 0.58 m/s code = 3354254862) E/A ratio (test code See_Comment A [Autom ated = 9391949634) message] The system which generated this result transmitted reference range : <=0.8. The reference range was not used to interpret this result as normal/abnormal . E wave decelartion See_Comment A [Automat ed time (test code = message] T he 1294695987) system which generated this result transmitted reference range : 200 msec. The reference range was not used to interpret this result as normal/abnormal . LV,d (test code = 3.90 cm 4685361585) IVS/LVPW,2D (test code = 5299257149) LV EF,2D (test code 57.26 % = 3639467714) LV FS Cube 2D (test code = 0350525917) LV FS Teich 2D (test code = 3848808480) LV SV Teich 2D (test 32.73 ml code = 2273017575) LV Vol s Teich PSAX 33.32 ml (test code = 1345526545) LVOT stroke volume 0.46 cm3 (test code = 3796994622) Left Atrium 5.30 cm See_Comment A [Automated Dimension Anterior message] The (test code = system which 2767546423) generated this result transmitted reference range : <=3.8. The reference range was not used to interpret this result as normal/abnormal . LA Vol MOD A4C (test 130.09 ml code = 0209536986) LA area s A4C (test 36.52 cm2 code = 7983244923) LVOT area (test code 3.08 cm2 = 7796851527) LVOT Vmax (test code 0.85 m/s = 1999456409) AoV Mean PG (test See_Comment [Automate d code = 2440748877) message] The system which generated this result transmitted reference range : 20 mmHg. The reference range was not used to interpret this result as normal/abnormal . AoV Peak PG (test mmHg code = 5299676682) AV LVOT peak mmHg gradient (test code = 1197414603) AoV Area, Vmax (test 1.94 cm2 See_Comment [Autom ated code = 1331719276) message] The system which generated this result transmitted reference range : >=1.5. The reference range was not used to interpret this result as normal/abnormal . LVOT VTI (CM) (test 15.00 cm code = 8643436564) AoV Vmax (test code 1.35 m/s = 1080849154) AoV Vmn (test code = 0.82 m/s 4225747719) AoV Area, VTI (test 2.30 cm2 code = 9629347632) LVOT CO (test code = 4.72 l/min 7779879236) LVOT HR for LVOT CO bpm (test code = 3695128962) Velocity Ratio 0.63 m/s (V1/V2) (test code = 4689) MV mean gradient See_Comment [Automated (test code = message] The 3368441251) system which generated this result transmitted reference range : 5 mmHg. The reference range was not used to interpret this result as normal/abnormal . MR peak grad (test mmHg code = 2398702008) MV stenosis pressure 30.12 ms See_Comment [Autom ated 1/2 time (test code message] The = 5301747515) system which generated this result transmitted reference range : <=150. The reference range was not used to interpret this result as normal/abnormal . MV E A ratio (test code = 6705409423) MV valve area p 1/2 7.30 cm2 method (test code = 2284600791) MV VTI Tips (test 0.15 m code = 1736583222) MV Vmax (test code = 0.72 m 0547223193) RVSP (test code = See_Comment A [Automate d 6712993238) message] The system which generated this result transmitted reference range : 40.00 mmHg. The reference range was not used to interpret this result as normal/abnormal . TR pk grad (test mmHg code = 7418507107) TR Vpeak (test code 2.85 m/s = 2053118899) RVSP (TR) (test code mmHg = 8880031503) RVOT Vmax (test code 0.44 m/s = 3384784870) PV Mean Grad (test mmHg code = 6927185825) PV Pk Grad (test See_Comment [Automated code = 7545123654) message] The system which generated this result transmitted reference range : 36 mmHg. The reference range was not used to interpret this result as normal/abnormal . PV VTI (test code = 0.17 m 3125898710) RVOT pk grad (test mmHg code = 1864290587) PV VMAX (test code = 1.05 m/s See_Comment [Autom ated 2333572007) message] The system which generated this result transmitted reference range : <=3. The reference range was not used to interpret this result as normal/abnormal . PV Vmn (test code = 6328101965) Ao Root Diameter 2.95 cm See_Comment [Automated (test code = message] The 6409086886) system which generated this result transmitted reference range : <=3.99. The reference range was not used to interpret this result as normal/abnormal . Ao Root Diameter 2.95 cm (test code = 1967090358) Ascending aorta 2.58 cm (test code = 7832431531) Pred METS R1 (test code = 7232161430) Pred Exer Dur R1 (test code = 2302932420) MV Decel slope (test 15.54 m/s2 code = 2312759247) LVPW pct thck PLAX 20.67 % (test code = 8085100291) LV vol s cube 2D 25.42 ml (test code = 6689012405) LV vol d cube 2D 59.47 ml (test code = 6640074376) LV SV Cube 2D (test 34.05 ml code = 7235833805) IVS pct thck PLAX 17.04 % (test code = 9015868231) Calc MPHR (test code bpm = 2462346245) 85 of MPHR (test code = 9244514532) RVOT VTI (test code 0.08 m = 4086063748) RVOT Vmn (test code 0.30 m/s = 6263230031) RVOT mean grad (test mmHg code = 1349103310) MAX Pred HR (test code = 9252663810) LVOT mean grad (test mmHg code = 4298451071) Aov area Vmn (test 2.31 cm2 code = 6993112773) MV AE ratio (test code = 7954428108) LVOT Vmn (test code = 3664696586) MR Vmax (test code = 4.65 m/s 9908783685) AoV VTI (test code = 0.20 m 2574790841) LVOT VTI (test code 0.15 m = 3328943749) GUICHO (test code = GUICHO) Left Ventricle: Normal systolic function with a visually estimated EF of 55 - 60%. Grade III (restrictive) diastolic dysfunction. Right Ventricle: Right ventricle is moderately dilated. Mildly reduced systolic function. Tricuspid Valve: Moderate valvular regurgitation. Left VentricleLeft ventricle size is normal. Normal systolic function with a visually estimated EF of 55 - 60%. Grade III (restrictive) diastolic dysfunction.Right VentricleRight ventricle is moderately dilated. Mildly reduced systolic function.Left AtriumLeft atrium is severely dilated.Right AtriumRight atrium is severely dilated.Mitral ValveMild mitral annular calcification. Mild valvular regurgitation.Tricus pid ValveValve structure is normal. Moderate valvular regurgitation.Aortic ValveValve structure is normal. No significant valvular regurgitation.Pulmon ic ValveValve structure is normal. Mild valvular regurgitation.Perica rdiumThere is no pericardial effusion present.Study DetailsStudy quality was adequate. A complete 2D, color flow Doppler and spectral Doppler echocardiogram was performed.The apical, parasternal, subcostal and suprasternal views were obtained. Technical difficulties due to lung artifact. Lab Interpretation Abnormal (test code = 26583-3) [facility] [Presence] in Respiratory specimen by DANIEL with probe [id number] 19:34:22 Test Item Value Reference Range Interpretation Comments SARS-CoV-2 (COVID-19) RNA [Presence] Detected in Respiratory specimen by DANIEL with probe detection (test code = 40467-7) Whether patient is employed in a Unknown healthcare setting (test code = 64210-4) Whether the patient has symptoms Unknown related to condition of interest (test code = 21733-8) Whether the patient was hospitalized Unknown for condition of interest (test code = 14503-0) Whether the patient was admitted to Unknown intensive care unit (ICU) for condition of interest (test code = 25468-4) Whether patient resides in a Unknown congregate care setting (test code = 99884-5) status (test code = Unknown 29122-5) Date and time of symptom onset (test Unknown code = 06986-5) [facility] MET[facility]OL[facility] [id number] 16:39:00 Test Item Value Reference Range Interpretation [...] = 8.8 mg/dL 8.0-10.5 N CA) PROTHROMBIN [id number] 16:33:00 Test Item Value Reference Range Interpretation [...] (to prevent recurrent infar ct). CBC W/AUTO [id number] 16:23:00 Test Item Value Reference Range Interpretation [...] DIFF REQUIRED (test code NO = MDIFF) Hepatitis B surface [id number] 21:36:32 Test Item Value Reference Range Interpretation Comments Hep B S Ab (test code <8.0 See_Comment [Auto mated = 45525-3) message] The system which generated this result transmit ayhir reference range : <8.0 mIU/mL. e reference range was not used to interpret this result as normal/abnormal . GUICHO (test code = GUICHO) [employer] ID - DB Lab Interpretation Normal (test code = 51212-0) [facility] [id number] 21:36:32 Test Item Value Reference Range Interpretation Comments HEPATITIS B SURFACE ANTIBODY < mIU/mL <8.0 (BEAKER) (test code = 647) [employer] ID - DBHepatitis B surface [id number] 21:24:22 Test Item Value Reference Range Interpretation Comments Hepatitis B surface Nonreactive Nonreactive antigen (test code = 5195-3) GUICHO (test code = GUICHO) Specimen is considered negative for HBsAg. Lab Interpretation (test Normal code = 21483-6) [facility] [id number] 21:24:22 Test Item Value Reference Range Interpretation Comments HEPATITIS B SURFACE ANTIGEN (2) Nonreactive Nonreactive (BEAKER) (test code = 2585) Specimen is considered negative for HBsAg.Transthoracic Echocardiogram Complete, (w Contrast, Strain and 3D if needed)2022-04-13 13:23:07 Test Item Value Reference Interpretation Comments Range EF (test code = 66 % 54-74 7743629310) IVS,d (test code = 1.03 cm 0.6-0.9 A 7823648345) LVPWD,d (test code = 1.27 cm 0.60-1.19 A 8353728097) LV,s (test code = 2.56 cm 1400647710) LVOT Diam,S (test 2.01 cm code = 6121611165) LV BURGESS VOL (test 69.20 ml 46-106 code = 1314516269) LV SYS VOL (test 23.74 ml 14-42 code = 6661580743) MV Peak E Jonathan (test 1.20 m/s code = 3782346602) MV Peak A Jonathan (test 0.47 m/s code = 5331493976) E/A ratio (test code See_Comment A [Autom ated = 8507362273) message] The system which generated this result transmitted reference range : <=0.8. The reference range was not used to interpret this result as normal/abnormal . E wave decelartion See_Comment A [Automat ed time (test code = message] T he 2993998167) system which generated this result transmitted reference range : 200 msec. The reference range was not used to interpret this result as normal/abnormal . LV,d (test code = 3.98 cm 6456339770) IVS/LVPW,2D (test code = 6923903694) LV EF,2D (test code 73.32 % = 6274163488) LV FS Cube 2D (test code = 1864039290) LV FS Teich 2D (test code = 3112021995) LV SV Teich 2D (test 45.46 ml code = 9692944792) LV Vol s Teich PSAX 23.74 ml (test code = 2477783014) LVOT stroke volume 0.35 cm3 (test code = 0111307324) Left Atrium 4.52 cm See_Comment A [Automated Dimension Anterior message] The (test code = system which 8668128873) generated this result transmitted reference range : <=3.8. The reference range was not used to interpret this result as normal/abnormal . LA Vol MOD A4C (test 83.62 ml code = 3848634758) LA area s A4C (test 28.59 cm2 code = 6007690551) LA Ao Ratio Mmode (test code = 2338660743) LVOT area (test code 3.17 cm2 = 1768768334) LVOT Vmax (test code 0.62 m/s = 9134025908) AoV Mean PG (test See_Comment [Automate d code = 8821917594) message] The system which generated this result transmitted reference range : 20 mmHg. The reference range was not used to interpret this result as normal/abnormal . AoV Peak PG (test mmHg code = 2206488937) AV LVOT peak mmHg gradient (test code = 3058144044) AoV Area, Vmax (test 2.00 cm2 See_Comment [Autom ated code = 3879539983) message] The system which generated this result transmitted reference range : >=1.5. The reference range was not used to interpret this result as normal/abnormal . LVOT VTI (CM) (test 11.00 cm code = 8112652609) AoV Vmax (test code 0.98 m/s = 0913854997) AoV Vmn (test code = 0.65 m/s 7290251594) AoV Area, VTI (test 2.42 cm2 code = 7492926585) Velocity Ratio 0.63 m/s (V1/V2) (test code = 4689) MR peak grad (test mmHg code = 4413403813) MV stenosis pressure 31.00 ms See_Comment [Autom ated 1/2 time (test code message] The = 4534654735) system which generated this result transmitted reference range : <=150. The reference range was not used to interpret this result as normal/abnormal . MV E A ratio (test code = 7649562804) MV valve area p 1/2 7.10 cm2 method (test code = 3494978675) E prime lat (test code = 5406376647) E katherine sept (test code = 5991750473) RVSP (test code = See_Comment A [Automate d 4057865854) message] The system which generated this result transmitted reference range : 40.00 mmHg. The reference range was not used to interpret this result as normal/abnormal . RA pressure (test mmHg code = 9306909102) TR pk grad (test mmHg code = 0197771970) TR Vpeak (test code 3.51 m/s = 5523922787) RVSP (TR) (test code mmHg = 3170264743) RVOT Vmax (test code 0.46 m/s = 0016652931) PV Pk Grad (test See_Comment [Automated code = 8064077133) message] The system which generated this result transmitted reference range : 36 mmHg. The reference range was not used to interpret this result as normal/abnormal . RVOT pk grad (test mmHg code = 1802192762) PV VMAX (test code = 1.15 m/s See_Comment [Autom ated 3313644470) message] The system which generated this result transmitted reference range : <=3. The reference range was not used to interpret this result as normal/abnormal . Ao root annulus 2.82 cm (test code = 7249626623) Ao Root Diameter 3.23 cm See_Comment [Automated (test code = message] The 6052167994) system which generated this result transmitted reference range : <=3.99. The reference range was not used to interpret this result as normal/abnormal . Ao Root Diameter 3.23 cm (test code = 5838656550) Ascending aorta 3.69 cm (test code = 2749066850) Pred METS R1 (test code = 9073232255) Pred Exer Dur R1 (test code = 8238741817) MV Decel slope (test 11.26 m/s2 code = 5553079085) LV vol s cube 2D 16.83 ml (test code = 9878409422) LV vol d cube 2D 63.08 ml (test code = 0268470701) LV SV Cube 2D (test 46.25 ml code = 5392264207) Calc MPHR (test code bpm = 7785897960) 85 of MPHR (test code = 4149445656) MAX Pred HR (test code = 4899330848) LVOT mean grad (test mmHg code = 5253475191) Aov area Vmn (test 1.92 cm2 code = 4736523633) MV AE ratio (test code = 3464999503) LVOT Vmn (test code = 7018037923) MR Vmax (test code = 4.22 m/s 2861083443) AoV VTI (test code = 0.15 m 9560354046) LVOT VTI (test code 0.11 m = 3873367834) GUICHO (test code = GUICHO) Left Ventricle: Normal systolic function with a visually estimated EF of 65 - 70%. Grade I (impaired relaxation) diastolic dysfunction. Left Atrium: Left atrium is mildly dilated. Right Ventricle: Right ventricle is moderately dilated. Reduced systolic function. Right Atrium: Right atrium is moderately dilated. Mitral Valve: Valve structure is normal. Mildly calcified leaflets. Mild valvular regurgitation. Tricuspid Valve: Moderate valvular regurgitation. Moderately elevated pulmonary artery systolic pressure. RVSP is 59.82 mmHg. Left VentricleLeft ventricle size is normal. Normal systolic function with a visually estimated EF of 65 - 70%. Grade I (impaired relaxation) diastolic dysfunction.Right VentricleRight ventricle is moderately dilated. Reduced systolic function.Left AtriumLeft atrium is mildly dilated.Right AtriumRight atrium is moderately dilated.Mitral ValveValve structure is normal. Mildly calcified leaflets. Mild valvular regurgitation.Tricus pid ValveValve structure is normal. Moderate valvular regurgitation. Moderately elevated pulmonary artery systolic pressure. RVSP is 59.82 mmHg.Aortic ValveValve structure appears tricuspid. No significant valvular regurgitation. No stenosis.Pulmonic ValveValve structure is normal.PericardiumTh ere is no pericardial effusion present.Study DetailsStudy quality was good. A complete 2D, color flow Doppler and spectral Doppler echocardiogram was performed.The apical, parasternal, subcostal and suprasternal views were obtained. Patient exhibited sinus tachycardia. Lab Interpretation Abnormal (test code = 86255-4) [facility] [id number] 07:26:00 Test Item Value Reference Interpretation Comments Range Urine culture Proteus xtuhfav84-5 A Specime n isolate (test cfu/mlThe InformationSpe hospital for behavioral medicineen code = 90167-7) performance Source: Urin eSpecimen characteristics of Site: Christopher an catch this assay on this isolatewere validated by the Microbiology Laboratory at [facility]. This source has not been approved by the U.S. Food and Drug Administration. The results are not intended to be used as the sole means for clinical diagnosis or patient management. The Microbiology Laboratory is authorized under the clinical Laboratory Improvement Amendments of 1988 (CLIA-88) to perform high complexity testing. Lab Abnormal Interpretation (test code = 72663-6) [facility] RNA [Presence] in Respiratory specimen by DANIEL with probe [id number] 00:41:02 Test Item Value Reference Range Interpretation Comments SARS-CoV-2 (COVID-19) RNA Not detected [Presence] in Respiratory specimen by DANIEL with probe detection (test code = 90335-6) Whether patient is employed in a Unknown healthcare setting (test code = 67237-2) Whether the patient has symptoms Unknown related to condition of interest (test code = 83189-2) Whether the patient was Unknown hospitalized for condition of interest (test code = 51172-5) Whether the patient was admitted Unknown to intensive care unit (ICU) for condition of interest (test code = 53987-6) Whether patient resides in a Unknown congregate care setting (test code = 83111-7) status (test code = Unknown 37671-8) Date and time of symptom onset Unknown (test code = 12282-2) [facility]- XR [id number] 10:28:00 [facility] 1955 Sex: F Name: FREDDIE SAUCEDO [facility] : 1955 Age/S: 66 / F [address] [facility] Unit #: [id number] Loc: [place] [address] Phys: Mic Aiken MD Acct: [id number] Dis Date: Status: [facility] PHONE #: [phone] Exam Date: 03/08/2022 0950 FAX #: Reason: ERCP EXAMS: CPT: [id number] XR ERCP 33923 Fluoro Time: 33 SEC DAP (Gy m2): Air Kerma (mGy): EXAMINATION: - XR ERCP. LOCATION: S17. HISTORY: ERCP, CBD obstruction. COMPARISON: None. FINDINGS/ IMPRESSION: Nine portable limited intraoperative fluoroscopic images of right upper quadrant during ERCP are submitted to radiology department. Initial imagedemonstrates CBD stent and postoperative clips in upper abdomen. Subsequent images demonstrate contrast opacification of CBD and small bowel. Please see operative report for further details. No radiologist was present during procedure. FLUOROSCOPIC TIME: 35.6 seconds. Reference air Kerma: 11.146 mGy. at 1028 Reported and signed by: Ru Hernandez M.D. CC: Mic Aiken MD; Antonella Rodriguez MD PAGE 1 Signed Report Name: FREDDIE SAUCEDO : 1955 Age/S: 66 / F [address] [address] [place] Unit #: [id number]: [place] [address] Phys: Mic Aiken MD Acct: [id number] Dis Date: Status: REG SDC PHONE #: [phone] Exam Date: 03/08/2022 0950 FAX #: Reason: ERCP EXAMS: CPT: [id number] XR ERCP 90876 Fluoro Time: 33 SEC DAP (Gy m2): Air Kerma (mGy): (Continued) Technologist: Naila Davis, RT(R) Trnscb Date/Time: 03/08/2022 (1028) [email or web address] Orig Print D/T: S: 03/08/2022 (1032) PAGE 2 Signed [id number] 08:51:00 Test Item Value Reference Range Interpretation Comments POTASSIUM (test code = K) 5.1 mmol/L 3.4-5.0 H CBC W/AUTO [id number] 08:15:00 Test Item Value Reference Range Interpretation [...] NO DIFF/SCN CRITERIA = MDIFF) BASIC METABOLIC [id number] 08:08:00 Test Item Value Reference Range Interpretation [...] 9.9 MG/DL 8.5-10.1 N COVID 19 INHOUSE [id number] 14:11:00 Test Item Value Reference Range Interpretation Comments COVID 19 INHOUSE AG NEGATIVE Negative Per manu facturer, (test code = negative result s should [id number]) be treated aspr esumptive and, if inconsi [...] symptoms co nsistent with COVID-19. CBC W/AUTO [id number] 14:00:00 Test Item Value Reference Range Interpretation [...] MDIFF) CONSISTA NT WITH AUTO DIFFERENTI AL. HEPATIC FUNCTION [id number] 13:32:00 Test Item Value Reference Range Interpretation [...] 222 Unit/L 45-117 H code = ALKP) [id number] 13:32:00 Test Item Value Reference Range Interpretation Comments LIPASE (test code = LIP) 109 Unit/L 114-286 L BASIC METABOLIC [id number] 13:32:00 Test Item Value Reference Range Interpretation [...] code = CA) 10.1 MG/DL 8.5-10.1 N [id number] 18:01:00 Test Item Value Reference Range Interpretation Comments SURGICAL (test code = SR) RUN DATE: 03/01/22 [facility] PAGE 1 RUN TIME: 180 Specimen Inquiry RUN USER: INTERFACE LIANNA ENT: FREDDIE SAUCEDO LOC: [facility] U #: [id number] AGE/SX: 66/F ROOM: RE02/27/22[facility] DR: Adam King MD : 57 BED: DIS: STATUS: [facility] TLOC: SPEC #: [id number]:[facility]:[id number] RECD: 02/27/22 STATUS: YULIA ROSAS #: [id number] LUZ: 02/27/[address] [facility] [address]: Adam King MD ENTERED: 02/27/22 SP TYPE: SURGICAL OTHR DR: Antonella Rodriguez MD ORDERED: 73264/2, 86162, 26154, 19955, ANATOMIC SPEC, SPECIMEN TRACK COPIES TO: Antonella Rodriguez MD [address] [place] [address] Adam King MD [address] [place] [address] PROCEDURES: 32131 (02/27/22) 76414 (03/01/22) 58608 (03/01/22) 91273 (03/01/22) SPECIMEN TRACK (02/27/22) TISSUES: A. GASTRIC [...] internal) control is negative (staining performed at [facility]). CONTINUED ON NEXT PAGE RUN DATE: 03/01/22 [facility] PAGE 2 RUN TIME: 1801 Specimen Inquiry RUN USER: INTERFACE SPEC #: [id number]:[facility]:[id number] PATIENT: FREDDIE SAUCEDO #[id number] (Continued) ------- GROSS DESCRIPTION A. Antrum and body biopsy. It consists of 4 tissue fragments measuring 2-5 mm. All as A1. B. Distal esophageal biopsy. It consists of 2 tissue fragments measuring 3 mm each. Allas B1. Technical component performed at [facility] , [place] [address] Unless gross only, the diagnosis is based [...] the diagnosis section. ---- Signed SIGNATURE ON FILE Obdulio Dunn 03/01/22 180 END OF REPORT BASIC METABOLIC [id number] 08:13:00 Test Item Value Reference Range Interpretation [...] MG/DL 8.5-10.1 N - XR CHEST 2 [id number] 13:28:00 [facility] 1955 Sex: F Name: FREDDIE SAUCEDO Levan : 1955 Age/S: 66 / F [address] Unit #: [id number] Loc: [place] [address] Phys: Adam King MD Acct: [id number] Dis Date: Status[place] [facility] [place] #: [phone] Exam Date: 02/24/2022 1253 FAX #: Reason: PRE OP EXAMS: CPT: [id number] XR CHEST 2 V 06418 Fluoro Time: DAP (Gy m2): Air Kerma [...] King MD PAGE 1 Signed Report Name: ZHANG SAUCEDO Levan : 1955 Age/S: 66 / F [address] Unit #: [id number] Loc: [place] [address] Phys: Adam King MD Acct: [id number] Dis Date: Status: [place] [facility] [place] #: [phone] Exam Date: 02/24/2022 1257 FAX #: Reason: PRE OP EXAMS: CPT: [id number] XR CHEST 2 V 57098 Fluoro Time:DAP (Gy m2): Air Kerma (mGy): (Continued) Technologist: Priya Lemos, RT (R)(CT) Trnscb Date/Time: 02/24/2022 (7758) MelindaTS14 Orig Print D/T: S: 02/24/2022 (4881) PAGE 2 Signed ReportBASIC METABOLIC [id number] 12:55:00 Test Item Value Reference Range Interpretation [...] 10.5 MG/DL 8.5-10.1 H COVID 19 INHOUSE [id number] 12:52:00 Test Item Value Reference Range Interpretation Comments COVID 19 INHOUSE AG NEGATIVE Negative Per manu facturer, (test code = negative result s should [id number]) be treated aspr esumptive and, if inconsi [...] and symptoms co nsistent with COVID-19. PROTHROMBIN [id number] 12:44:00 Test Item Value Reference Range Interpretation [...] (to prevent recurrent infar ct). THROMBOPLASTIN TIME [id number] 12:44:00 Test Item Value Reference Range Interpretation Comments THROMBOPLASTIN TIME PARTIAL 36.2 SECONDS 26-35 H (test code = PTT) CBC W/AUTO [id number] 12:43:00 Test Item Value Reference Range Interpretation [...] in Respiratory specimen by DANIEL with probe aauxhpgrr8406-98-37 23:10:10 Test Item Value Reference Range Interpretation Comments SARS coronavirus RNA [Presence] Not detected in Isolate by DANIEL with probe detection (test code = 85071-7) Whether patient is employed in a No healthcare setting (test code = 85897-4) Whether the patient has symptoms Yes related to condition of interest (test code = 93663-0) Whether the patient was No hospitalized for condition of interest (test code = 08929-1) Whether the patient was admitted No to intensive care unit (ICU) for condition of interest (test code = 04625-7) Whether patient resides in a No congregate care setting (test code = 12975-7) status (test code = No 91905-3) Date and time of symptom onset Unknown (test code = 25679-2) [facility]IC[facility]-LmR-5 (COVID-19) RNA [Presence] in Respiratory specimen by DANIEL with probe xsjilsrqm6535-92-02 23:10:10 Test Item Value Reference Range Interpretation Comments SARS-CoV-2 (COVID-19) RNA Not detected [Presence] in Respiratory specimen by DANIEL with probe detection (test code = 81295-5) Whether patient is employed in a No healthcare setting (test code = 92585-9) Whether the patient has symptoms Yes related to condition of interest (test code = 36400-0) Whether the patient was No hospitalized for condition of interest (test code = 22069-1) Whether the patient was admitted No to intensive care unit (ICU) for condition of interest (test code = 75054-4) Whether patient resides in a No congregate care setting (test code = 71614-9) status (test code = No 25235-5) Date and time of symptom onset Unknown (test code = 25603-1) [facility]-CoV-2 (COVID-19) RNA [Presence] in Respiratory specimen by DANIEL with probe [id number] 22:34:30 Test Item Value Reference Range Interpretation Comments SARS-CoV-2 (COVID-19) RNA Not detected Not-Detected [Presence] in Respiratory specimen by DANIEL with probe detection (test code = 23897-3) Whether patient is employed in a healthcare setting (test code = 19107-4) Whether the patient has symptoms related to condition of interest (test code = 32943-1) Patient was hospitalized because of this condition (test code = 24570-5) Whether the patient was admitted to intensive care unit (ICU) for condition of interest (test code = 73184-3) Whether patient resides in a congregate care setting (test code = 26681-2) [facility]-CoV-2 (COVID-19) RNA [Presence] in Respiratory specimen by DANIEL with probe yxeocgjzy4691-26-48 22:35:42 Test Item Value Reference Range Interpretation Comments SARS-CoV-2 (COVID-19) RNA Not detected Not-Detected [Presence] in Respiratory specimen by DANIEL with probe detection (test code = 25071-2) Whether patient is employed in a healthcare setting (test code = 73119-0) Whether the patient has symptoms related to condition of interest (test code = 22122-0) Patient was hospitalized because of this condition (test code = 70278-0) Whether the patient was admitted to intensive care unit (ICU) for condition of interest (test code = 59619-4) Whether patient resides in a congregate care setting (test code = 35607-9) [facility]-CoV-2 (COVID-19) RNA [Presence] in Respiratory specimen by DANIEL with probe pmsiqgpnq8829-33-45 22:46:10 Test Item Value Reference Range Interpretation Comments SARS-CoV-2 (COVID-19) RNA Not detected Not-Detected [Presence] in Respiratory specimen by DANIEL with probe detection (test code = 92592-2) Whether patient is employed in a healthcare setting (test code = 45194-4) Whether the patient has symptoms related to condition of interest (test code = 11622-8) Patient was hospitalized because of this condition (test code = 03365-7) Whether the patient was admitted to intensive care unit (ICU) for condition of interest (test code = 90815-6) Whether patient resides in a congregate care setting (test code = 57639-2) [facility] RNA [Presence] in Respiratory specimen by DANIEL with probe fmsqpudjq4526-87-82 01:54:24 Test Item Value Reference Range Interpretation Comments SARS-CoV-2 (COVID-19) RNA Not detected Not-Detected [Presence] in Respiratory specimen by DANIEL with probe detection (test code = 44788-9) Whether patient is employed in a healthcare setting (test code = 88738-5) Whether the patient has symptoms related to condition of interest (test code = 02972-6) Patient was hospitalized because of this condition (test code = 70483-7) Whether the patient was admitted to intensive care unit (ICU) for condition of interest (test code = 25145-4) Whether patient resides in a congregate care setting (test code = 92718-1) [facility]-CoV-2 (COVID-19) RNA [Presence] in Respiratory specimen by DANIEL with probe epvnzdnvp5872-43-11 21:44:06 Test Item Value Reference Range Interpretation Comments SARS-CoV-2 (COVID-19) RNA Not detected Not-Detected [Presence] in Respiratory specimen by DANIEL with probe detection (test code = 32237-3) Whether patient is employed in a healthcare setting (test code = 00617-9) Whether the patient has symptoms related to condition of interest (test code = 24896-8) Patient was hospitalized because of this condition (test code = 27881-1) Whether the patient was admitted to intensive care unit (ICU) for condition of interest (test code = 62626-3) Whether patient resides in a congregate care setting (test code = 80876-9) [facility]-CoV-2 (COVID-19) RNA [Presence] in Respiratory specimen by DANIEL with probe mcshurrbz8028-78-81 00:36:59 Test Item Value Reference Range Interpretation Comments SARS-CoV-2 (COVID-19) RNA Not detected Not-Detected [Presence] in Respiratory specimen by DANIEL with probe detection (test code = 98503-0) [facility]-CoV-2 (COVID-19) RNA [Presence] in Respiratory specimen by DANIEL with probe nvpyxqctm7972-10-65 17:35:35 Test Item Value Reference Range Interpretation Comments SARS-CoV-2 (COVID-19) RNA Not detected Not-Detected [Presence] in Respiratory specimen by DANIEL with probe detection (test code = 83895-9) [facility]-CoV-2 (COVID-19) RNA [Presence] in Respiratory specimen by DANIEL with probe bsdglpixy2987-88-99 18:03:30 Test Item Value Reference Range Interpretation Comments SARS-CoV-2 (COVID-19) RNA Not detected Not-Detected [Presence] in Respiratory specimen by DANIEL with probe detection (test code = 29728-2) [facility]-CoV-2 (COVID-19) RNA [Presence] in Respiratory specimen by DANIEL with probe tocccvtjz8282-08-66 10:06:03 Test Item Value Reference Range Interpretation Comments SARS-CoV-2 (COVID-19) RNA Not detected Not-Detected [Presence] in Respiratory specimen by DANIEL with probe detection (test code = 67457-1) [facility]-CoV-2 (COVID-19) RNA [Presence] in Respiratory specimen by DANIEL with probe sfzqyhgpf4561-65-26 05:11:58 Test Item Value Reference Range Interpretation Comments SARS-CoV-2 (COVID-19) RNA Not detected Not-Detected [Presence] in Respiratory specimen by DANIEL with probe detection (test code = 65422-7) [facility]-CoV-2 (COVID-19) RNA [Presence] in Respiratory specimen by DANIEL with probe yevplshxu6747-64-82 03:34:16 Test Item Value Reference Range Interpretation Comments SARS-CoV-2 (COVID-19) RNA Not detected Not-Detected [Presence] in Respiratory specimen by DANIEL with probe detection (test code = 36813-5) [facility]-CoV-2 (COVID-19) RNA [Presence] in Respiratory specimen by DANIEL with probe sxfvupifa8707-91-94 10:06:41 Test Item Value Reference Range Interpretation Comments SARS-CoV-2 (COVID-19) RNA Not detected Not-Detected [Presence] in Respiratory specimen by DANIEL with probe detection (test code = 55595-8) [facility]2020-10-14 12:33:00 Test Item Value Reference Range Interpretation Comments Chol (test code = Chol) 129 [facility]NkvwrkiYBDTGZ3081-87-46 12:33:00 Test Item Value Reference Range Interpretation Comments Chol (test code = Chol) 129 [facility] HospitalNlbmlwoYAJPQO5295-23-87 12:33:00 Test Item Value Reference Range Interpretation Comments HDL (test code = HDL) 37 [facility] HospitalQvsaeicGTQCLP4530-02-18 12:33:00 Test Item Value Reference Range Interpretation Comments HDL (test code = HDL) 37 [facility] HospitalXwflvonVIZJKG0011-92-66 12:33:00 Test Item Value Reference Range Interpretation Comments Trig (test code = Trig) 76 [facility] HospitalHezcuowUDGOBN7251-91-70 12:33:00 Test Item Value Reference Range Interpretation Comments LDL (Calculated) (test code = LDL 76 (Calculated)) [facility] HospitalByryldqYWFCRN8571-17-28 12:33:00 Test Item Value Reference Range Interpretation Comments CHD Risk (test code = CHD Risk) 3.5 [facility]woodYsqazamQWIICK2466-97-92 12:33:00 Test Item Value Reference Range Interpretation Comments Non HDL Chol (test code = Non HDL Chol) 92 [facility] HospitalMohjctaCNKUGT3220-23-80 12:33:00 Test Item Value Reference Range Interpretation Comments Trig (test code = Trig) 76 [facility] HospitalOjyoodxDXGXWQ2440-89-35 12:33:00 Test Item Value Reference Range Interpretation Comments LDL (Calculated) (test code = LDL 76 (Calculated)) [facility]woodVbbypgzPPIDGK2154-91-23 12:33:00 Test Item Value Reference Range Interpretation Comments CHD Risk (test code = CHD Risk) 3.5 [facility]woodRuagirwLYJLCU2820-19-59 12:33:00 Test Item Value Reference Range Interpretation Comments Non HDL Chol (test code = Non HDL Chol) 92 [facility] HospitalXzjivhrPZSECX0633-56-68 12:33:00 Test Item Value Reference Range Interpretation Comments Chol (test code = Chol) 129 [facility] HospitalRobvepjVUKSFL2302-06-79 12:33:00 Test Item Value Reference Range Interpretation Comments HDL (test code = HDL) 37 [facility] BrownwoodKigxutvHHUQMQ5764-10-55 12:33:00 Test Item Value Reference Range Interpretation Comments Trig (test code = Trig) 76 [facility] HospitalJvdzunaZHDSWR1596-21-06 12:33:00 Test Item Value Reference Range Interpretation Comments LDL (Calculated) (test code = LDL 76 (Calculated)) [facility] HospitalQuvysduWEXYVO6413-73-56 12:33:00 Test Item Value Reference Range Interpretation Comments CHD Risk (test code = CHD Risk) 3.5 [facility] BrownwoodDylystuGGODPU9695-93-58 12:33:00 Test Item Value Reference Range Interpretation Comments Non HDL Chol (test code = Non HDL Chol) 92 [facility] [employer] FNDPQ6949-18-18 14:47:00 Test Item Value Reference Range Interpretation Comments Vitamin D, 25-OH, Total (test code = 37 30-100 Vitamin D, 25-OH, Total) [facility]GH[facility] [id number] 14:47:00 Test Item Value Reference Range Interpretation Comments U Creat mg/dL (test code = U Creat 114 20-275 mg/dL) [facility] [employer] LCWZO5375-73-08 14:47:00 Test Item Value Reference Range Interpretation Comments U Prot/Creat (test code = U Prot/Creat) 430 21-161 [facility]2020-08-06 14:47:00 Test Item Value Reference Range Interpretation Comments U Prot/Creat (test code = U 0.430 1 0.021-0.161 Prot/Creat) [facility]2020-08-06 14:47:00 Test Item Value Reference Range Interpretation Comments U Protein (test code = U Protein) 49 5-24 [facility]2020-08-06 14:47:00 Test Item Value Reference Range Interpretation Comments Glucose Lvl (test code = Glucose Lvl) 103 65-99 [place] 453020-08-06 14:47:00 Test Item Value Reference Range Interpretation Comments BUN (test code = BUN) 24 7-25 [facility]2020-08-06 14:47:00 Test Item Value Reference Range Interpretation Comments Creatinine Lvl (test code = Creatinine 1.32 0.50-0.99 Lvl) [facility]2020-08-06 14:47:00 Test Item Value Reference Range Interpretation Comments eGFR NON-AFR. CAMEROONIAN (test code = 43 eGFR NON-AFR. CAMEROONIAN) [facility]2020-08-06 14:47:00 Test Item Value Reference Range Interpretation Comments eGFR (test code = eGFR 50 ) [place] 453020-08-06 14:47:00 Test Item Value Reference Range Interpretation Comments B/C Ratio (test code = B/C Ratio) 18 6-22 [place] 453020-08-06 14:47:00 Test Item Value Reference Range Interpretation Comments Sodium Lvl (test code = Sodium Lvl) 138 135-146 [facility]2020-08-06 14:47:00 Test Item Value Reference Range Interpretation Comments Potassium Lvl (test code = Potassium 4.4 3.5-5.3 Lvl) [facility]2020-08-06 14:47:00 Test Item Value Reference Range Interpretation Comments Chloride Lvl (test code = Chloride Lvl) 102 98-110 [place] 453020-08-06 14:47:00 Test Item Value Reference Range Interpretation Comments CO2 (test code = CO2) 30 20-32 [facility]2020-08-06 14:47:00 Test Item Value Reference Range Interpretation Comments Calcium Lvl (test code = Calcium Lvl) 9.4 8.6-10.4 [place] 453020-08-06 14:47:00 Test Item Value Reference Range Interpretation Comments Phosphorus (test code = Phosphorus) 4.8 2.5-4.5 [facility]2020-08-06 14:47:00 Test Item Value Reference Range Interpretation Comments Albumin Lvl (test code = Albumin Lvl) 3.9 3.6-5.1 [place] [address]-08-06 14:47:00 Test Item Value Reference Range Interpretation Comments Plt Count Estimated (test code = DECREASED Plt Count Estimated) [place] 956720-08-06 14:47:00 Test Item Value Reference Range Interpretation Comments WBC X 10x3 (test code = WBC X 10x3) 7.2 3.8-10.8 [place] [address]-08-06 14:47:00 Test Item Value Reference Range Interpretation Comments RBC X 10x6 (test code = RBC X 10x6) 3.71 3.80-5.10 [place] [address]-08-06 14:47:00 Test Item Value Reference Range Interpretation Comments Hgb (test code = Hgb) 10.7 11.7-15.5 [place] [address]-08-06 14:47:00 Test Item Value Reference Range Interpretation Comments Hct (test code = Hct) 33.9 35.0-45.0 [place] [address]-08-06 14:47:00 Test Item Value Reference Range Interpretation Comments MCV (test code = MCV) 91.4 80.0-100.0 [place] [address]-08-06 14:47:00 Test Item Value Reference Range Interpretation Comments MCH (test code = MCH) 28.8 pg 27.0-33.0 [place] [address]-08-06 14:47:00 Test Item Value Reference Range Interpretation Comments MCHC (test code = MCHC) 31.6 32.0-36.0 [place] [address]-08-06 14:47:00 Test Item Value Reference Range Interpretation Comments RDW (test code = RDW) 13.9 11.0-15.0 [facility]XhnzokmIXGUCIQICF1426-71-57 14:47:00 Test Item Value Reference Range Interpretation Comments Platelet (test code = Platelet) 110 140-400 [facility] RegionPtfzadfWDYDTJJSEV7538-84-37 14:47:00 Test Item Value Reference Range Interpretation Comments MPV (test code = MPV) 11.7 7.5-12.5 [facility] RegionQawobcwTIUXYVXGHF9364-03-07 14:47:00 Test Item Value Reference Range Interpretation Comments Neutrophils # (test code = Neutrophils 5414 6971-3361 #) [facility] BrownwoodDgyuasqLKYGUSIEKA1939-49-22 14:47:00 Test Item Value Reference Range Interpretation Comments Lymphocytes # (test code = Lymphocytes 4478 565-3995 #) [facility] RegionOwlokekVPHFHINJQN6529-51-70 14:47:00 Test Item Value Reference Range Interpretation Comments Monocytes # (test code = Monocytes #) 461 200-950 [facility] RegionIbbumqfGQQHPSZVSO2093-27-78 14:47:00 Test Item Value Reference Range Interpretation Comments Eosinophils # (test code = Eosinophils 122 15-500 #) [facility] RegionCayjzzbUPWOHKNKLO8849-52-10 14:47:00 Test Item Value Reference Range Interpretation Comments Basophils # (test code 50 See_Comment [Aut omated message] The = Basophils #) system which generated this result tra nsmitted reference range : <=200. The reference r edy was not used to int erpret this result as normal/abnormal . [facility] DallasObxebahTBLXKBYCHJ3972-06-51 14:47:00 Test Item Value Reference Range Interpretation Comments Segs (test code = Segs) 75.2 [facility] DallasCaurhjlCIQQLHYASL5798-39-94 14:47:00 Test Item Value Reference Range Interpretation Comments Lymphocytes (test code = Lymphocytes) 16.0 [facility] RegionZnpsziyECZOVNPMUG1359-84-55 14:47:00 Test Item Value Reference Range Interpretation Comments Monocytes (test code = Monocytes) 6.4 [facility] DallasAixmkpmJKKSGYYYQU9060-82-95 14:47:00 Test Item Value Reference Range Interpretation Comments Eosinophils (test code = Eosinophils) 1.7 [facility] RegionVxnqguyNVVGNUFOLC9664-76-06 14:47:00 Test Item Value Reference Range Interpretation Comments Basophils (test code = Basophils) 0.7 [facility]woodREFERECAROMONT [facility] OHPGVAP5725-12-52 14:47:00 Test Item Value Reference Range Interpretation Comments Result 2 (Urine Culture) See Result Comment (test code = Result 2 (Urine Culture)) [facility] AND SFUCD7861-60-46 14:47:00 Test Item Value Reference Range Interpretation Comments UA Color (test code = UA Color) YELLOW [facility] AND OCYEZ1344-11-88 14:47:00 Test Item Value Reference Range Interpretation Comments UA Turbidity (test code = UA CLOUDY Turbidity) [facility] AND UVHAA0160-73-14 14:47:00 Test Item Value Reference Range Interpretation Comments UA Spec Grav (test code = UA Spec 1.017 1 1.001-1.035 Grav) [facility] AND ZWBJY7292-22-65 14:47:00 Test Item Value Reference Range Interpretation Comments UA pH (test code = UA pH) 5.5 1 5.0-8.0 [facility] AND UQEAD2531-22-77 14:47:00 Test Item Value Reference Range Interpretation Comments UA Glucose (test code = UA Glucose) NEGATIVE [facility] AND JMFVC2042-74-96 14:47:00 Test Item Value Reference Range Interpretation Comments UA Bili (test code = UA Bili) NEGATIVE [facility] AND ADSRU9134-72-45 14:47:00 Test Item Value Reference Range Interpretation Comments UA Ketones (test code = UA Ketones) NEGATIVE [facility] AND WMVZI9613-02-88 14:47:00 Test Item Value Reference Range Interpretation Comments UA Blood (test code = UA Blood) 1+ [facility] AND PFPBQ5317-04-08 14:47:00 Test Item Value Reference Range Interpretation Comments UA Protein (test code = UA Protein) 1+ [facility] AND BBKNE5362-90-27 14:47:00 Test Item Value Reference Range Interpretation Comments UA Nitrite (test code = UA Nitrite) POSITIVE [facility] AND FWIBB9284-95-62 14:47:00 Test Item Value Reference Range Interpretation Comments UA Leuk Est (test code = UA Leuk Est) 2+ [facility] AND HEBES1607-58-05 14:47:00 Test Item Value Reference Range Interpretation Comments UA WBC (test code = UA WBC) > OR = 60 [facility] AND RUIWP0769-41-05 14:47:00 Test Item Value Reference Range Interpretation Comments UA RBC (test code = UA RBC) 0-2 [facility] [id number] 14:47:00 Test Item Value Reference Range Interpretation Comments UA Sq Epi (test code = UA Sq Epi) NONE SEEN [facility] AND ENYRA3946-10-44 14:47:00 Test Item Value Reference Range Interpretation Comments UA Bacteria (test code = UA Bacteria) MANY [facility] AND CKQHD4395-28-94 14:47:00 Test Item Value Reference Range Interpretation Comments UA Hyal Cast (test code = UA Hyal NONE SEEN Cast) [facility] AND UDPXU1469-69-46 14:47:00 Test Item Value Reference Range Interpretation Comments UA Reflex (test code CULTURE INDICATED - = UA Reflex) RESULTS TO FOLLOW [facility]2020-08-06 14:47:00 Test Item Value Reference Range Interpretation Comments U Creat mg/dL (test code = U Creat 114 20-275 mg/dL) [facility]2020-08-06 14:47:00 Test Item Value Reference Range Interpretation Comments U Alb (test code = U Alb) 16.7 [facility]2020-08-06 14:47:00 Test Item Value Reference Range Interpretation Comments U Alb/Crea (test code = U Alb/Crea) 146 [facility]2020-08-06 14:47:00 Test Item Value Reference Range Interpretation Comments Vitamin D, 25-OH, Total (test code = 37 30-100 Vitamin D, 25-OH, Total) [facility]2020-08-06 14:47:00 Test Item Value Reference Range Interpretation Comments U Creat mg/dL (test code = U Creat 114 20-275 mg/dL) [facility]2020-08-06 14:47:00 Test Item Value Reference Range Interpretation Comments U Prot/Creat (test code = U Prot/Creat) 430 21-161 [facility]2020-08-06 14:47:00 Test Item Value Reference Range Interpretation Comments U Prot/Creat (test code = U 0.430 1 0.021-0.161 Prot/Creat) [facility]2020-08-06 14:47:00 Test Item Value Reference Range Interpretation Comments U Protein (test code = U Protein) 49 5-24 [facility]2020-08-06 14:47:00 Test Item Value Reference Range Interpretation Comments Glucose Lvl (test code = Glucose Lvl) 103 65-99 [place] 453020-08-06 14:47:00 Test Item Value Reference Range Interpretation Comments BUN (test code = BUN) 24 7-25 [place] 453020-08-06 14:47:00 Test Item Value Reference Range Interpretation Comments Creatinine Lvl (test code = Creatinine 1.32 0.50-0.99 Lvl) [place] 453020-08-06 14:47:00 Test Item Value Reference Range Interpretation Comments eGFR NON-AFR. CAMEROONIAN (test code = 43 eGFR NON-AFR. CAMEROONIAN) [place] 453020-08-06 14:47:00 Test Item Value Reference Range Interpretation Comments eGFR (test code = eGFR 50 ) [place] 453020-08-06 14:47:00 Test Item Value Reference Range Interpretation Comments B/C Ratio (test code = B/C Ratio) 18 6-22 [place] 453020-08-06 14:47:00 Test Item Value Reference Range Interpretation Comments Sodium Lvl (test code = Sodium Lvl) 138 135-146 [place] 453020-08-06 14:47:00 Test Item Value Reference Range Interpretation Comments Potassium Lvl (test code = Potassium 4.4 3.5-5.3 Lvl) [facility]2020-08-06 14:47:00 Test Item Value Reference Range Interpretation Comments Chloride Lvl (test code = Chloride Lvl) 102 98-110 [place] 453020-08-06 14:47:00 Test Item Value Reference Range Interpretation Comments CO2 (test code = CO2) 30 20-32 [place] 453020-08-06 14:47:00 Test Item Value Reference Range Interpretation Comments Calcium Lvl (test code = Calcium Lvl) 9.4 8.6-10.4 [place] 453020-08-06 14:47:00 Test Item Value Reference Range Interpretation Comments Phosphorus (test code = Phosphorus) 4.8 2.5-4.5 [place] 453020-08-06 14:47:00 Test Item Value Reference Range Interpretation Comments Albumin Lvl (test code = Albumin Lvl) 3.9 3.6-5.1 [place] 956720-08-06 14:47:00 Test Item Value Reference Range Interpretation Comments Plt Count Estimated (test code = DECREASED Plt Count Estimated) [facility] DallasDymdscaCSYAMACBTI0655-44-18 14:47:00 Test Item Value Reference Range Interpretation Comments WBC X 10x3 (test code = WBC X 10x3) 7.2 3.8-10.8 [place] 956720-08-06 14:47:00 Test Item Value Reference Range Interpretation Comments RBC X 10x6 (test code = RBC X 10x6) 3.71 3.80-5.10 [facility] DallasZxpjvqmELUEZZTNQO9521-89-87 14:47:00 Test Item Value Reference Range Interpretation Comments Hgb (test code = Hgb) 10.7 11.7-15.5 [place] 956720-08-06 14:47:00 Test Item Value Reference Range Interpretation Comments Hct (test code = Hct) 33.9 35.0-45.0 [facility] DallasZpolkbmTYQVXXOTMP3504-19-15 14:47:00 Test Item Value Reference Range Interpretation Comments MCV (test code = MCV) 91.4 80.0-100.0 [facility] DallasDpwhywzPMRIIXDHFU1729-71-71 14:47:00 Test Item Value Reference Range Interpretation Comments MCH (test code = MCH) 28.8 pg 27.0-33.0 [facility] DallasJobvyrgHEDPIJXEQG9073-21-54 14:47:00 Test Item Value Reference Range Interpretation Comments MCHC (test code = MCHC) 31.6 32.0-36.0 [facility] DallasFeohyneEJKEGDSGRF2687-16-03 14:47:00 Test Item Value Reference Range Interpretation Comments RDW (test code = RDW) 13.9 11.0-15.0 [place] 956720-08-06 14:47:00 Test Item Value Reference Range Interpretation Comments Platelet (test code = Platelet) 110 140-400 [facility] DallasMjsohdjHSHLONYINK0559-16-78 14:47:00 Test Item Value Reference Range Interpretation Comments MPV (test code = MPV) 11.7 7.5-12.5 [place] 956720-08-06 14:47:00 Test Item Value Reference Range Interpretation Comments Neutrophils # (test code = Neutrophils 5414 8862-4348 #) [facility] DallasCpnljkeFNQBRVKRGX7159-74-83 14:47:00 Test Item Value Reference Range Interpretation Comments Lymphocytes # (test code = Lymphocytes 1231 085-6241 #) [facility]anoFektrgcDOYKGYJWYS4808-63-34 14:47:00 Test Item Value Reference Range Interpretation Comments Monocytes # (test code = Monocytes #) 461 200-950 [facility]woodAvpabhpRBSUKOQLXI7246-96-06 14:47:00 Test Item Value Reference Range Interpretation Comments Eosinophils # (test code = Eosinophils 122 15-500 #) [facility]GeoozfkZZOEFLDTBR6441-80-61 14:47:00 Test Item Value Reference Range Interpretation Comments Basophils # (test code 50 See_Comment [Aut omated message] The = Basophils #) system which generated this result tra nsmitted reference range : <=200. The reference r edy was not used to int erpret this result as normal/abnormal . [facility] DallasIqbsfnyGOPRHVMEOL7600-52-03 14:47:00 Test Item Value Reference Range Interpretation Comments Segs (test code = Segs) 75.2 [facility] DallasHaujjjtORRBOTAUBJ8295-54-11 14:47:00 Test Item Value Reference Range Interpretation Comments Lymphocytes (test code = Lymphocytes) 16.0 [facility] RegionTwlaffoWOGIBQQDLI8203-44-10 14:47:00 Test Item Value Reference Range Interpretation Comments Monocytes (test code = Monocytes) 6.4 [facility] RegionAlymlxuACOPQDMDQZ6888-44-27 14:47:00 Test Item Value Reference Range Interpretation Comments Eosinophils (test code = Eosinophils) 1.7 [facility] RegionRwvdgflQWNVNGMJWZ8141-85-53 14:47:00 Test Item Value Reference Range Interpretation Comments Basophils (test code = Basophils) 0.7 [facility]woodREFERECAROM[facility] [id number] 14:47:00 Test Item Value Reference Range Interpretation Comments Result 2 (Urine Culture) See Result Comment (test code = Result 2 (Urine Culture)) [facility] AND [id number] 14:47:00 Test Item Value Reference Range Interpretation Comments UA Color (test code = UA Color) YELLOW [facility] AND [id number] 14:47:00 Test Item Value Reference Range Interpretation Comments UA Turbidity (test code = UA CLOUDY Turbidity) [facility] AND [id number] 14:47:00 Test Item Value Reference Range Interpretation Comments UA Spec Grav (test code = UA Spec 1.017 1 1.001-1.035 Grav) [facility] [id number] 14:47:00 Test Item Value Reference Range Interpretation Comments UA pH (test code = UA pH) 5.5 1 5.0-8.0 [facility] [id number] 14:47:00 Test Item Value Reference Range Interpretation Comments UA Glucose (test code = UA Glucose) NEGATIVE [facility] [id number] 14:47:00 Test Item Value Reference Range Interpretation Comments UA Bili (test code = UA Bili) NEGATIVE [facility] [id number] 14:47:00 Test Item Value Reference Range Interpretation Comments UA Ketones (test code = UA Ketones) NEGATIVE [facility] [id number] 14:47:00 Test Item Value Reference Range Interpretation Comments UA Blood (test code = UA Blood) 1+ [facility] [id number] 14:47:00 Test Item Value Reference Range Interpretation Comments UA Protein (test code = UA Protein) 1+ [facility] [id number] 14:47:00 Test Item Value Reference Range Interpretation Comments UA Nitrite (test code = UA Nitrite) POSITIVE [facility] [id number] 14:47:00 Test Item Value Reference Range Interpretation Comments UA Leuk Est (test code = UA Leuk Est) 2+ [facility] [id number] 14:47:00 Test Item Value Reference Range Interpretation Comments UA WBC (test code = UA WBC) > OR = 60 [facility] [id number] 14:47:00 Test Item Value Reference Range Interpretation Comments UA RBC (test code = UA RBC) 0-2 [facility] [id number] 14:47:00 Test Item Value Reference Range Interpretation Comments UA Sq Epi (test code = UA Sq Epi) NONE SEEN [facility] [id number] 14:47:00 Test Item Value Reference Range Interpretation Comments UA Bacteria (test code = UA Bacteria) MANY [facility] [id number] 14:47:00 Test Item Value Reference Range Interpretation Comments UA Hyal Cast (test code = UA Hyal NONE SEEN Cast) [facility] [id number] 14:47:00 Test Item Value Reference Range Interpretation Comments UA Reflex (test code CULTURE INDICATED - = UA Reflex) RESULTS TO FOLLOW [place] [address]-08-06 14:47:00 Test Item Value Reference Range Interpretation Comments U Creat mg/dL (test code = U Creat 114 20-275 mg/dL) [place] [address]-08-06 14:47:00 Test Item Value Reference Range Interpretation Comments U Alb (test code = U Alb) 16.7 [place] [address]-08-06 14:47:00 Test Item Value Reference Range Interpretation Comments U Alb/Crea (test code = U Alb/Crea) 146 [place] 453020-08-06 14:47:00 Test Item Value Reference Range Interpretation Comments Vitamin D, 25-OH, Total (test code = 37 30-100 Vitamin D, 25-OH, Total) [place] [address]-08-06 14:47:00 Test Item Value Reference Range Interpretation Comments U Creat mg/dL (test code = U Creat 114 20-275 mg/dL) [place] [address]-08-06 14:47:00 Test Item Value Reference Range Interpretation Comments U Prot/Creat (test code = U Prot/Creat) 430 21-161 [facility]2020-08-06 14:47:00 Test Item Value Reference Range Interpretation Comments U Prot/Creat (test code = U 0.430 1 0.021-0.161 Prot/Creat) [place] 453020-08-06 14:47:00 Test Item Value Reference Range Interpretation Comments U Protein (test code = U Protein) 49 5-24 [place] [address]-08-06 14:47:00 Test Item Value Reference Range Interpretation Comments Glucose Lvl (test code = Glucose Lvl) 103 65-99 [place] 453020-08-06 14:47:00 Test Item Value Reference Range Interpretation Comments BUN (test code = BUN) 24 7-25 [place] 453020-08-06 14:47:00 Test Item Value Reference Range Interpretation Comments Creatinine Lvl (test code = Creatinine 1.32 0.50-0.99 Lvl) [place] 453020-08-06 14:47:00 Test Item Value Reference Range Interpretation Comments eGFR NON-AFR. CAMEROONIAN (test code = 43 eGFR NON-AFR. CAMEROONIAN) [facility]2020-08-06 14:47:00 Test Item Value Reference Range Interpretation Comments eGFR (test code = eGFR 50 ) [facility]2020-08-06 14:47:00 Test Item Value Reference Range Interpretation Comments B/C Ratio (test code = B/C Ratio) 18 6-22 [place] 453020-08-06 14:47:00 Test Item Value Reference Range Interpretation Comments Sodium Lvl (test code = Sodium Lvl) 138 135-146 [place] 453020-08-06 14:47:00 Test Item Value Reference Range Interpretation Comments Potassium Lvl (test code = Potassium 4.4 3.5-5.3 Lvl) [place] 453020-08-06 14:47:00 Test Item Value Reference Range Interpretation Comments Chloride Lvl (test code = Chloride Lvl) 102 98-110 [place] 453020-08-06 14:47:00 Test Item Value Reference Range Interpretation Comments CO2 (test code = CO2) 30 20-32 [place] 453020-08-06 14:47:00 Test Item Value Reference Range Interpretation Comments Calcium Lvl (test code = Calcium Lvl) 9.4 8.6-10.4 [place] 453020-08-06 14:47:00 Test Item Value Reference Range Interpretation Comments Phosphorus (test code = Phosphorus) 4.8 2.5-4.5 [place] 453020-08-06 14:47:00 Test Item Value Reference Range Interpretation Comments Albumin Lvl (test code = Albumin Lvl) 3.9 3.6-5.1 [place] 956720-08-06 14:47:00 Test Item Value Reference Range Interpretation Comments Plt Count Estimated (test code = DECREASED Plt Count Estimated) [facility] DallasQhnhglpGBXVJULMSR6692-48-77 14:47:00 Test Item Value Reference Range Interpretation Comments WBC X 10x3 (test code = WBC X 10x3) 7.2 3.8-10.8 [place] 956720-08-06 14:47:00 Test Item Value Reference Range Interpretation Comments RBC X 10x6 (test code = RBC X 10x6) 3.71 3.80-5.10 [place] [address]-08-06 14:47:00 Test Item Value Reference Range Interpretation Comments Hgb (test code = Hgb) 10.7 11.7-15.5 [place] 956720-08-06 14:47:00 Test Item Value Reference Range Interpretation Comments Hct (test code = Hct) 33.9 35.0-45.0 [facility] DallasBklzyrmAJCVAUBMEA8987-67-15 14:47:00 Test Item Value Reference Range Interpretation Comments MCV (test code = MCV) 91.4 80.0-100.0 [facility] DallasCpatkjzMUIGXFMQII2552-53-80 14:47:00 Test Item Value Reference Range Interpretation Comments MCH (test code = MCH) 28.8 pg 27.0-33.0 [facility] DallasUqopxblGTQKHIKFKV9042-68-10 14:47:00 Test Item Value Reference Range Interpretation Comments MCHC (test code = MCHC) 31.6 32.0-36.0 [facility] DallasKddepdaMWQGXVLWGO3885-46-85 14:47:00 Test Item Value Reference Range Interpretation Comments RDW (test code = RDW) 13.9 11.0-15.0 [place] [address]-08-06 14:47:00 Test Item Value Reference Range Interpretation Comments Platelet (test code = Platelet) 110 140-400 [facility] DallasPynwalcAFGLUVFWLB9495-70-88 14:47:00 Test Item Value Reference Range Interpretation Comments MPV (test code = MPV) 11.7 7.5-12.5 [facility] DallasUdlaxyiLARGCIXCKF6257-33-04 14:47:00 Test Item Value Reference Range Interpretation Comments Neutrophils # (test code = Neutrophils 5414 8382-3991 #) [facility] DallasFgdpkmmJVSRFJOYXY5668-63-81 14:47:00 Test Item Value Reference Range Interpretation Comments Lymphocytes # (test code = Lymphocytes 0338 179-4069 #) [facility] DallasUmpcyjuGABHTVNTBU6370-22-53 14:47:00 Test Item Value Reference Range Interpretation Comments Monocytes # (test code = Monocytes #) 461 200-950 [facility] DallasAvssklpAFMUQLWBKN1077-12-19 14:47:00 Test Item Value Reference Range Interpretation Comments Eosinophils # (test code = Eosinophils 122 15-500 #) [facility] DallasWsloghgIFMOWWBMMU5693-28-24 14:47:00 Test Item Value Reference Range Interpretation Comments Basophils # (test code 50 See_Comment [Aut omated message] The = Basophils #) system which generated this result tra nsmitted reference range : <=200. The reference r edy was not used to int erpret this result as normal/abnormal . [facility] PlanoLkgkkdxHUGJFIVQVX6927-18-70 14:47:00 Test Item Value Reference Range Interpretation Comments Segs (test code = Segs) 75.2 [facility] RegionJpogiiuIBYXINHOMM7133-04-92 14:47:00 Test Item Value Reference Range Interpretation Comments Lymphocytes (test code = Lymphocytes) 16.0 [facility] PlanoTxslxnqTJBLRDJNJW7386-83-35 14:47:00 Test Item Value Reference Range Interpretation Comments Monocytes (test code = Monocytes) 6.4 [facility] PlanoBitvbbuNASXIPLDHR9596-51-17 14:47:00 Test Item Value Reference Range Interpretation Comments Eosinophils (test code = Eosinophils) 1.7 [facility] PlanoHryjdsrXIGLTTVGWU9320-01-48 14:47:00 Test Item Value Reference Range Interpretation Comments Basophils (test code = Basophils) 0.7 [facility] [id number] 14:47:00 Test Item Value Reference Range Interpretation Comments Result 2 (Urine Culture) See Result Comment (test code = Result 2 (Urine Culture)) [facility] AND [id number] 14:47:00 Test Item Value Reference Range Interpretation Comments UA Color (test code = UA Color) YELLOW [facility] AND [id number] 14:47:00 Test Item Value Reference Range Interpretation Comments UA Turbidity (test code = UA CLOUDY Turbidity) [facility] AND [id number] 14:47:00 Test Item Value Reference Range Interpretation Comments UA Spec Grav (test code = UA Spec 1.017 1 1.001-1.035 Grav) [facility] AND [id number] 14:47:00 Test Item Value Reference Range Interpretation Comments UA pH (test code = UA pH) 5.5 1 5.0-8.0 [facility] AND [id number] 14:47:00 Test Item Value Reference Range Interpretation Comments UA Glucose (test code = UA Glucose) NEGATIVE [facility] AND [id number] 14:47:00 Test Item Value Reference Range Interpretation Comments UA Bili (test code = UA Bili) NEGATIVE [facility] AND [id number] 14:47:00 Test Item Value Reference Range Interpretation Comments UA Ketones (test code = UA Ketones) NEGATIVE [facility] [id number] 14:47:00 Test Item Value Reference Range Interpretation Comments UA Blood (test code = UA Blood) 1+ [facility] [id number] 14:47:00 Test Item Value Reference Range Interpretation Comments UA Protein (test code = UA Protein) 1+ [facility] [id number] 14:47:00 Test Item Value Reference Range Interpretation Comments UA Nitrite (test code = UA Nitrite) POSITIVE [facility] [id number] 14:47:00 Test Item Value Reference Range Interpretation Comments UA Leuk Est (test code = UA Leuk Est) 2+ [facility] [id number] 14:47:00 Test Item Value Reference Range Interpretation Comments UA WBC (test code = UA WBC) > OR = 60 [facility] [id number] 14:47:00 Test Item Value Reference Range Interpretation Comments UA RBC (test code = UA RBC) 0-2 [facility] [id number] 14:47:00 Test Item Value Reference Range Interpretation Comments UA Sq Epi (test code = UA Sq Epi) NONE SEEN [facility] [id number] 14:47:00 Test Item Value Reference Range Interpretation Comments UA Bacteria (test code = UA Bacteria) [facility] [id number] 14:47:00 Test Item Value Reference Range Interpretation Comments UA Hyal Cast (test code = UA Hyal NONE SEEN Cast) [facility] [id number] 14:47:00 Test Item Value Reference Range Interpretation Comments UA Reflex (test code CULTURE INDICATED - = UA Reflex) RESULTS TO FOLLOW [facility]UR[facility] [id number] 14:47:00 Test Item Value Reference Range Interpretation Comments U Creat mg/dL (test code = U Creat 114 20-275 mg/dL) [facility]UR[facility] [id number] 14:47:00 Test Item Value Reference Range Interpretation Comments U Alb (test code = U Alb) 16.7 [facility]UR[facility] [id number] 14:47:00 Test Item Value Reference Range Interpretation Comments U Alb/Crea (test code = U Alb/Crea) 146 [facility] PROTEIN ELECTROPHORESIS-24HR [id number] 08:01:00 Test Item Value Reference Range Interpretation Comments CREATININE, 24 HOUR 1.45 g/24 h 0.50-2.15 URINE (test code = 26880093) PROTEIN/CREATININE 292 mg/g creat < OR = 114 H RATION (test code = 66907048) PROTEIN, TOTAL 24 HR UR 424 mg/24 h <150 H TEST PERFORMED (test code = 11310787) AT:[facility] [address] [address]GCLUSNIECY BOYCE MD ALBUMIN (test code = 35 % 48074975) FOWBG-2-FWZGKJBRK (test 10 % code = 74314156) QIEHC-9-OTAPXTHDI (test 12 % code = 57691476) BETA GLOBULINS (test 25 % code = 27009627) GAMMA GLOBULINS (test 18 % code = 60909421) INTERPRETATION (test Albumin and code = 32030149) various dann bulin fractions detected on proteinelectrop ho resis. No abnormal protei n bands (Bence-Jonespro te inuria) detected.TEST PERFORMED AT:[facility] [place] [address] [address]HAWRGNIECY BOYCE MD NEUTROPHIL CYTOPLASMIC [id number] 05:19:00 Test Item Value Reference Range Interpretation Comments ANCA SCREEN (test NEGATIVE NEGATIVE ANCA Scree n includes code = 93712898) evaluation for p-ANCA, c-ANCA andatypi alexandre p-ANCA. [...] ofpat ients with Crohn's disease .TEST PERFORMED AT:[facility] [id number] [place] [address]GKVUAOSCAR EISENBERG MD,PHD ,MICHI COMPREHENSIVE METABOLIC [id number] 06:25:00 Test Item Value Reference Range Interpretation [...] MORPH (test code = RBCMOR) NORMAL URINE [id number] 09:53:00 Test Item Value Reference Range Interpretation [...] = VD) 36.0 ng/mL 30.0-100.0 SERUM PROTEIN [id number] 06:20:00 Test Item Value Reference Range Interpretation Comments PROTEIN TOTAL (test 5.7 g/dL 6.1-8.1 L TEST PER FORMED AT:QUEST code = 91433563) DIAGNOSTICS -[id number] [facility] [place] [address]DIYSNNIECY BOYCE MD ALBUMIN (test code = 3.2 g/dL 3.8-4.8 L 93984509) SFXOJ-1-MQXAICIXY 0.4 g/dL 0.2-0.3 H (test code = 16476566) SFYFN-8-FIPIREPWN 0.8 g/dL 0.5-0.9 (test code = 72189027) BETA 1 GLOBULIN (test 0.5 g/dL 0.4-0.6 code = 66498760) BETA 2 GLOBULIN (test 0.2 g/dL 0.2-0.5 code = 50890786) GAMMA GLOBULINS (test 0.6 g/dL 0.8-1.7 L code = 00225013) INTERPRETATION (test Pattern consistent with code = 89312866) an acute ph ase reactionConsist ent with hypogammaglobul inemia. Serum free ligh tchains or urine immuno fixation should be consi dered ifplasma cell d yscrasias are a possible clinicaldiagnos is.TEST PERFORMED AT: [facility] [id number] [facility] [place] [address]LVQCYNIECY BOYCE MD [id number] 06:13:00 Test Item Value Reference Range Interpretation Comments MAGNESIUM (test code = 48A) 1.7 mg/dL 1.8-2.4 L COMPREHENSIVE METABOLIC [id number] 06:13:00 Test Item Value Reference Range Interpretation [...] (test code = RBCMOR) NORMAL COMPREHENSIVE METABOLIC [id number] 05:30:00 Test Item Value Reference Range Interpretation [...] (test code = RBCMOR) NORMAL URINALYSIS WITH [id number] 06:44:00 Test Item Value Reference Range Interpretation [...] code = USPERM) /HPF NONE COMPREHENSIVE METABOLIC [id number] 05:24:00 Test Item Value Reference Range Interpretation [...] = RBCMOR) NORMAL U/S KIDNEY (RENAL)2019-06-06 23:20:42LOCATION: [id number]: 63-year-old female who presents with acute nontraumatic [...] jet was observed onthe color flow study.TROPONIN [id number] 07:14:00 Test Item Value Reference Range Interpretation Comments TROPONIN I (test code = A84) <0.015 ng/mL 0.000-0.045 COMPREHENSIVE METABOLIC [id number] 05:28:00 Test Item Value Reference Range Interpretation [...] (test code = RBCMOR) NORMAL COMPREHENSIVE METABOLIC [id number] 04:58:00 Test Item Value Reference Range Interpretation [...] (test code = MDIFF) NO NO CARDIAC [id number] 23:10:00 Test Item Value Reference Range Interpretation Comments TROPONIN I (test code = A84) <0.015 ng/mL 0.000-0.045 U/S VENOUS DOPPLER BALDO LOW [id number] 22:23:14LOCATION: [id number]: 63-year-old female who presents with bilateral leg [...] thrombosis in either of thispatient's legs. CARDIAC [id number] 16:50:00 Test Item Value Reference Range Interpretation Comments TROPONIN I (test code = A84) <0.015 ng/mL 0.000-0.045 BRAIN NATRIURETIC [id number] 14:39:00 Test Item Value Reference Range Interpretation Comments proBNP (test code = PBNP) 1337 pg/mL 0-125 H THYROID PANEL/SCREEN (TSH)2019-06-04 12:05:00 Test Item Value Reference Range Interpretation Comments TSH (test code = A57) 0.989 uIU/mL 0.358-3.740 [id number] 12:02:00 Test Item Value Reference Range Interpretation Comments CPK (test code = 32A) 98 IU/L 26-192 AMYLASE AND [id number] 12:02:00 Test Item Value Reference Range Interpretation Comments AMYLASE (test code = 10A) 19 U/L 28-100 L LIPASE (test code = 60A) 67 IU/L 73-393 L COMPREHENSIVE METABOLIC [id number] 12:02:00 Test Item Value Reference Range Interpretation [...] code = 31A) 41 IU/L <=78 TROPONIN [id number] 11:57:00 Test Item Value Reference Range Interpretation Comments TROPONIN I (test code = A84) <0.015 ng/mL 0.000-0.045 XR CHEST 1 VIEW [id number] 11:55:22EXAM: XR CHEST 1 VIEW PORTABLE.LOCATION: .HISTORY: [id number]: Chest pain.COMPARISON: Radiograph dated 05/12/2019.TECHNIQUE: Single AP view of the chest was obtained. FINDINGS:The heart is enlarged in size. Small left pleural effusion and left basilaropacities are present. There is elevation of the right hemidiaphragm. No acuteosseous abnormality is identified.IMPRESSION:Small left pleural effusion with left basilar opacities, which may representatelectasis or infiltrates.Cardiomegaly. PRO TIME AND [id number] 11:43:00 Test Item Value Reference Range Interpretation [...] (test code = RBCMOR) NORMAL CBC WITH [id number] 15:29:00 Test Item Value Reference Range Interpretation [...] NORMAL (1.5-3 um) NORMAL PLTMOR) BASIC METABOLIC [id number] 15:26:00 Test Item Value Reference Range Interpretation [...] code = 09D) 9.2 mg/dL 8.3-9.5 CARDIAC [id number] 06:04:00 Test Item Value Reference Range Interpretation Comments TROPONIN I (test code = A84) <0.015 ng/mL 0.000-0.045 BASIC METABOLIC [id number] 05:52:00 Test Item Value Reference Range Interpretation [...] MORPH (test code = RBCMOR) NORMAL CARDIAC [id number] 23:08:00 Test Item Value Reference Range Interpretation Comments TROPONIN I (test code = A84) <0.015 ng/mL 0.000-0.045 CT DISSECTION [id number] 19:26:35Exam: CT thorax PE protocol.Location: 12History: [id number]: Chest painTechnique: Enhanced spiral slices were taken [...] code = A57) 0.706 uIU/mL 0.358-3.740 LIVER [id number] 18:28:00 Test Item Value Reference Range Interpretation [...] = 31A) 21 IU/L <=78 BRAIN NATRIURETIC [id number] 18:19:00 Test Item Value Reference Range Interpretation Comments proBNP (test code = PBNP) 518 pg/mL 0-125 H [id number] 18:15:00 Test Item Value Reference Range Interpretation Comments MAGNESIUM (test code = 48A) 1.9 mg/dL 1.8-2.4 [id number] 17:40:00 Test Item Value Reference Range Interpretation Comments D-DIMER (test code = <200 ng/mL D-DU 0-234 DDI) D-DIMER COMMENT (test *Level to rule out code = DDCOM) DVT or PE: <235 ng/mL D-DU* CARDIAC [id number] 17:31:00 Test Item Value Reference Range Interpretation Comments TROPONIN I (test code = A84) <0.015 ng/mL 0.000-0.045 BASIC METABOLIC [id number] 17:27:00 Test Item Value Reference Range Interpretation [...] LMW Heparin. Order Code is ANTI-XA PROTHROMBIN [id number] 17:26:00 Test Item Value Reference Range Interpretation Comments PT (test code = 12.0 s 9.8-13.6 TT) INR (test code = 1.1 INR) INRH (test code = SUGGESTED THERAPEUTIC INRH) RANGE FOR INR: 2.5 - 3.5 For Patients with Prosthetic Valves or Patients with recurrent Thromboembolic Events 2.0 - 3.0 For Most Other Applications XR CHEST 1 VIEW [id number] 17:04:28Portable AP chest, 1 viewLocation Code: [id number] HISTORY: Chest painCOMPARISON: NoneCOMMENT: Mild atelectasis is present within the lung bases. The costophrenic angles aresharp. The cardiomediastinalsilhouette is unremarkable. The bones are intact.IMPRESSION: Mild bibasilar atelectasis. Otherwise, no acute abnormalityCRITICAL ACCESS [id number] 16:51:00 Test Item Value Reference Range Interpretation Comments Creatinine Lvl (test code = Creatinine 1.15 0.50-1.40 Lvl) [facility]2017-01-24 16:51:00 Test Item Value Reference Range Interpretation Comments BUN (test code = BUN) 16 - [facility]2017-01-24 16:51:00 Test Item Value Reference Range Interpretation Comments Chloride Lvl (test code = Chloride Lvl) 109 95-109 [facility]2017-01-24 16:51:00 Test Item Value Reference Range Interpretation Comments Potassium Lvl (test code = Potassium 4.3 3.5-5.1 Lvl) [facility]2017-01-24 16:51:00 Test Item Value Reference Range Interpretation Comments Sodium Lvl (test code = Sodium Lvl) 144 135-145 [facility]2017-01-24 16:51:00 Test Item Value Reference Range Interpretation Comments CO2 (test code = CO2) 28 24-32 [facility]2017-01-24 16:51:00 Test Item Value Reference Range Interpretation Comments Calcium Lvl (test code = Calcium Lvl) 8.4 8.5-10.5 [facility]2017-01-24 16:51:00 Test Item Value Reference Range Interpretation Comments AGAP (test code = AGAP) 11.3 10.0-20.0 [facility]2017-01-24 16:51:00 Test Item Value Reference Range Interpretation Comments Glucose Lvl (test code = Glucose Lvl) 109 70-99 [facility]2017-01-24 16:51:00 Test Item Value Reference Range Interpretation Comments eGFR (test code = eGFR) 52 [facility]2017-01-24 16:51:00 Test Item Value Reference Range Interpretation Comments Creatinine Lvl (test code = Creatinine 1.15 0.50-1.40 Lvl) [facility]2017-01-24 16:51:00 Test Item Value Reference Range Interpretation Comments BUN (test code = BUN) 16 05-12 [facility]2017-01-24 16:51:00 Test Item Value Reference Range Interpretation Comments Chloride Lvl (test code = Chloride Lvl) 109 95-109 [facility]2017-01-24 16:51:00 Test Item Value Reference Range Interpretation Comments Potassium Lvl (test code = Potassium 4.3 3.5-5.1 Lvl) [facility]2017-01-24 16:51:00 Test Item Value Reference Range Interpretation Comments Sodium Lvl (test code = Sodium Lvl) 144 135-145 [facility]2017-01-24 16:51:00 Test Item Value Reference Range Interpretation Comments CO2 (test code = CO2) 28 - [facility]2017-01-24 16:51:00 Test Item Value Reference Range Interpretation Comments Calcium Lvl (test code = Calcium Lvl) 8.4 8.5-10.5 [facility]2017-01-24 16:51:00 Test Item Value Reference Range Interpretation Comments AGAP (test code = AGAP) 11.3 10.0-20.0 [facility]2017-01-24 16:51:00 Test Item Value Reference Range Interpretation Comments Glucose Lvl (test code = Glucose Lvl) 109 70-99 [facility]2017-01-24 16:51:00 Test Item Value Reference Range Interpretation Comments eGFR (test code = eGFR) 52 [facility]2017-01-24 16:51:00 Test Item Value Reference Range Interpretation Comments Creatinine Lvl (test code = Creatinine 1.15 0.50-1.40 Lvl) [facility]2017-01-24 16:51:00 Test Item Value Reference Range Interpretation Comments BUN (test code = BUN) 16 05-12 [facility]2017-01-24 16:51:00 Test Item Value Reference Range Interpretation Comments Chloride Lvl (test code = Chloride Lvl) 109 95-109 [facility]2017-01-24 16:51:00 Test Item Value Reference Range Interpretation Comments Potassium Lvl (test code = Potassium 4.3 3.5-5.1 Lvl) [facility]2017-01-24 16:51:00 Test Item Value Reference Range Interpretation Comments Sodium Lvl (test code = Sodium Lvl) 144 135-145 [facility]2017-01-24 16:51:00 Test Item Value Reference Range Interpretation Comments CO2 (test code = CO2) 28 24-32 [facility]2017-01-24 16:51:00 Test Item Value Reference Range Interpretation Comments Calcium Lvl (test code = Calcium Lvl) 8.4 8.5-10.5 [facility]2017-01-24 16:51:00 Test Item Value Reference Range Interpretation Comments AGAP (test code = AGAP) 11.3 10.0-20.0 [facility]2017-01-24 16:51:00 Test Item Value Reference Range Interpretation Comments Glucose Lvl (test code = Glucose Lvl) 109 70-99 [facility]2017-01-24 16:51:00 Test Item Value Reference Range Interpretation Comments eGFR (test code = eGFR) 52 [facility]
--- NOTE | 2022-09-01 12:40 | RAD REPORT ---
EXAM DESCRIPTION: RAD - Chest Single View - 09/01/2022 12:30 pm CLINICAL HISTORY: CHEST PAIN Chest pain. COMPARISON: Chest Single View dated 08/03/2022; Chest Single View dated 05/21/2022; Chest Single View dated 05/19/2022; Chest Single View dated 01/01/2022 FINDINGS: Portable technique limits examination quality. The lungs are underinflated but grossly clear. Chronically elevated right hemidiaphragm noted. Heart is moderately enlarged. Left-sided venous catheter has tip in the SVC. IMPRESSION: Underinflated lungs.
[2022-09-01 13:00] LABS: Absolute Lymphocytes (CBC) 1.2 K/uL (0.7-4.9); Hematocrit 29.7 % (36.0-45.0); Lymphocytes % 18.6 % (15.3-44.8); MCV 102.1 fL (80-100); MPV 8.7 fL (7.6-11.3)
[2022-09-01 13:28] LABS: Potassium 4.7 mmol/L (3.5-5.1); Troponin High Sensitivity 16.5 pg/mL (<58.9)
[2022-09-01] MEDS ORDERED: ONDANSETRON 4 MG (ODT) TAB ONE (14:13)
--- NOTE | 2022-09-01 14:39 | EDPHYS ---
Physician Documentation [facility] Name: Kassie De Jesus Age: 66 yrs Sex: Female : 1955 Arrival Date: 09/01/2022 Time: 11:04 Bed 6 Private MD: Ranjit Eagle ED Physician Gianni Polk HPI: 09/01 19:35 This 66 yrs old Female presents to ER via Wheelchair with complaints of Chest Pain. kdr 19:36 Patient presents to the ED complaining of chest pain that began 1/2 weeks ago. Patient kdr reports that she was in [facility] and was released after a few days admission where and they ruled out an TX. I was about 5 days ago. She has follow-up appointment with her media supervisor (Dr. Chamberlain) today and he told her to come to the ER for further treatment.. Onset: The symptoms/episode began/occurred gradually, 1.5 week(s) ago. Severity of symptoms: At their worst the symptoms were mild moderate just prior to arrival, in the emergency department the symptoms are unchanged. The patient has experienced similar episodes in the past, chronically. The patient has been recently seen by a physician: It is unknown whether or not the patient has recently seen a physician. Patient states that more than the chest discomfort which was seems to be chronic, she is having shortness of breath which occurs with even short distance.. Historical: - Allergies: 11:09 Bactrim; ss 11:09 cefepime; ss 11:09 Codeine; ss 11:09 Levofloxacin; ss 11:09 Morphine; itching; ss 11:09 PENICILLINS; ss 11:09 QUINOLONES; ss - PMHx: 11:09 Atrial fibrillation; Congestive heart failure; Dialysis; High Cholesterol; Hypertensive ss disorder; stage 4 kidney failure; - PSHx: 11:09 back surgery; Dialysis catheter LEFT upper chest; ss - Immunization history:: Client reports having NOT received the Covid vaccine. - Social history:: Smoking status: Patient denies any tobacco usage or history of. ROS: 19:36 Constitutional: Negative for fever, chills, and weight loss, Eyes: Negative for injury, kdr pain, redness, and discharge, Neck: Negative for injury, pain, and swelling, Abdomen/GI: Negative for abdominal pain, nausea, vomiting, diarrhea, and constipation, Back: Negative for injury and pain, : Negative for injury, bleeding, discharge, and swelling, MS/Extremity: Negative for injury and deformity, Skin: Negative for injury, rash, and discoloration, Neuro: Negative for headache, weakness, numbness, tingling, and seizure activity. Psych: Negative for depression, anxiety, suicide ideation, homicidal ideation, and hallucinations, Allergy/Immunology: Negative for hives, rash, and allergies, Endocrine: Negative for neck swelling, polydipsia, polyuria, polyphagia, and marked weight changes, Hematologic/Lymphatic: Negative for swollen nodes, abnormal bleeding, and unusual bruising. 19:36 Cardiovascular: Positive for chest pain, edema, Negative for orthopnea, palpitations, paroxysmal nocturnal dyspnea. 19:36 Respiratory: Positive for dyspnea on exertion, shortness of breath, Negative for hemoptysis, orthopnea, pleurisy. Exam: 19:36 Constitutional: This is a well developed, well nourished patient who is awake, alert, kdr and in no acute distress. Head/Face: Normocephalic, atraumatic. Eyes: Pupils equal round and reactive to light, extra-ocular motions intact. Lids and lashes normal. Conjunctiva and sclera are non-icteric and not injected. Cornea within normal limits. Periorbital areas with no swelling, redness, or edema. Neck: Trachea midline, no thyromegaly or masses palpated, and no cervical lymphadenopathy. Supple, full range of motion without nuchal rigidity, or vertebral point tenderness. No Meningismus. Chest/axilla: Normal chest wall appearance and motion. Nontender with no deformity. No lesions are appreciated. Cardiovascular: Regular rate and rhythm with a normal S1 and S2. No gallops, murmurs, or rubs. Normal PMI, no JVD. No pulse deficits. Respiratory: Lungs have equal breath sounds bilaterally, clear to auscultation and percussion. No rales, rhonchi or wheezes noted. No increased work of breathing, no retractions or nasal flaring. Abdomen/GI: Soft, non-tender, with normal bowel sounds. No distension or tympany. No guarding or rebound. No evidence of tenderness throughout. Back: No spinal tenderness. No costovertebral tenderness. Full range of motion. Skin: Warm, dry with normal turgor. Normal color with no rashes, no lesions, and no evidence of cellulitis. MS/ Extremity: Pulses equal, no cyanosis. Neurovascular intact. Full, normal range of motion. Neuro: Awake and alert, GCS 15, oriented to person, place, time, and situation. Cranial nerves II-XII grossly intact. Motor strength 5/5 in all extremities. Sensory grossly intact. Cerebellar exam normal. Normal gait. Psych: Awake, alert, with orientation to person, place and time. Behavior, mood, and affect are within normal limits. 19:36 Cardiovascular: Rate: normal, Edema: 2+ edema to level of left midcalf, left ankle, left foot, left toes, right midcalf, right ankle, right foot and right toes. Vital Signs: 11:06 BP 97 / 55; Pulse 55; Resp 18; Temp 98.4(TE); Pulse Ox 99% ; Weight 107.95 kg; Height 5 ss ft. 7 in. (170.18 cm); Pain 8/10; 13:08 BP 121 / 96; Pulse 67; Resp 22 S; Pulse Ox 96% on R/A; jd3 14:07 BP 88 / 55; Pulse 68; Resp 21; Pulse Ox 97% on R/A; jd3 17:27 BP 110 / 60; Pulse 65; Resp 20; Pulse Ox 100% on R/A; jd3 11:06 Body Mass Index 37.28 (107.95 kg, 170.18 cm) ss MDM: 14:38 Patient medically screened. kdr 19:36 Data reviewed: vital signs, nurses notes, lab test result(s), EKG, radiologic studies. kdr Counseling: I had a detailed discussion with the patient and/or guardian regarding: the historical points, exam findings, and any diagnostic results supporting the discharge/admit diagnosis, lab results, radiology results, the need for further work-up and treatment in the hospital. 09/01 11:40 Order name: Basic Metabolic Panel; Complete Time: 13:46 kdr 09/01 11:40 Order name: CBC with Diff; Complete Time: 13:46 kdr 09/01 11:40 Order name: Troponin HS; Complete Time: 13:46 kdr 09/01 11:40 Order name: XRAY Chest (1 view); Complete Time: 13:46 kdr 09/01 15:03 Order name: SARS RAPID; Complete Time: 16:08 jd3 09/01 16:52 Order name: Troponin High Sensitivity EDUT 09/01 11:10 Order name: EKG; Complete Time: 11:11 ss 09/01 11:10 Order name: EKG - Nurse/Tech; Complete Time: 13:21 ss 09/01 11:40 Order name: Cardiac monitoring; Complete Time: 12:02 kdr 09/01 16:29 Order name: CONS Physician Consult EDUT 09/01 16:29 Order name: CONS Physician Consult EDUT 09/01 16:29 Order name: Renal EDMS 09/01 11:40 Order name: Labs collected and sent; Complete Time: 12:12 kdr 09/01 11:40 Order name: O2 Per Protocol; Complete Time: 12:02 kdr 09/01 11:40 Order name: O2 Sat Monitoring; Complete Time: 12:02 kdr Administered Medications: 13:38 Drug: Ondansetron 4 mg Route: PO; jd3 14:30 Follow up: Response: No adverse reaction jd3 Disposition Summary: 09/01/22 14:38 Hospitalization Ordered Hospitalization Status: Inpatient Admission kdr Provider: Ranjit Eagle Location: Telemetry/MedSurg (Inpatient) kdr Condition: Fair kdr Problem: an ongoing problem kdr Symptoms: are unchanged kdr Bed/Room Type: Standard kdr Room Assignment: 214(09/01/22 16:35) eb Diagnosis - Shortness of breath kdr - Chest pain, unspecified kdr Forms: - Medication Reconciliation Form kdr - SBAR form kdr Signatures: Dispatcher [employer] EDUT Gianni Polk MD MD kdr Alecia Joya RN RN ss Davies, Jonathon, RN RN jGabriela Balderrama Corrections: (The following items were deleted from the chart) 16:35 14:38 kdr eb
--- NOTE | 2022-09-01 14:39 | ER ---
Nurse's Notes [facility] Name: Kassie De Jesus Age: 66 yrs Sex: Female : 1955 Arrival Date: 09/01/2022 Time: 11:04 Bed 6 Private MD: Ranjit Eagle Diagnosis: Shortness of breath;Chest pain, unspecified Presentation: 09/01 11:06 Chief complaint: Patient states: Chest pain that has been ongoing x 1.5 weeks. PT ss reports she was seen in [facility] and released after ruling out an OR 5 days ago. PT states she had a follow up appointment with her forestry foreman today and told her to come to the ER for further treatment. Coronavirus screen: Client denies travel out of the [place] in the last 14 days. Ebola Screen: Patient denies exposure to infectious person. Patient denies travel to an Ebola-affected area in the 21 days before illness onset. Initial Sepsis Screen: Does the patient meet any 2 criteria? No. Patient's initial sepsis screen is negative. Does the patient have a suspected source of infection? No. Patient's initial sepsis screen is negative. Risk Assessment: Do you want to hurt yourself or someone else? Patient reports no desire to harm self or others. Onset of symptoms was August 22, 2022. 11:06 Method Of Arrival: Wheelchair ss 11:06 Acuity: LENI 2 ss Historical: - Allergies: 11:09 Bactrim; ss 11:09 cefepime; ss 11:09 Codeine; ss 11:09 Levofloxacin; ss 11:09 Morphine; itching; ss 11:09 PENICILLINS; ss 11:09 QUINOLONES; ss - PMHx: 11:09 Atrial fibrillation; Congestive heart failure; Dialysis; High Cholesterol; Hypertensive ss disorder; stage 4 kidney failure; - PSHx: 11:09 back surgery; Dialysis catheter LEFT upper chest; ss - Immunization history:: Client reports having NOT received the Covid vaccine. - Social history:: Smoking status: Patient denies any tobacco usage or history of. Screenin:24 Abuse screen: Denies threats or abuse. Nutritional screening: No deficits noted. jd3 Tuberculosis screening: No symptoms or risk factors identified. Fall Risk Ambulatory Aid- None/Bed Rest/Nurse Assist (0 pts). Gait- Normal/Bed Rest/Wheelchair (0 pts) Mental Status- Oriented to own ability (0 pts). Total Smith Fall Scale indicates No Risk (0-24 pts). Assessment: 12:00 General: Appears in no apparent distress. comfortable, Behavior is calm, cooperative, jd3 appropriate for age. Pain: Complains of pain in chest Pain does not radiate. Quality of pain is described as pressure, Pain began X 10 days. Neuro: Newman Agitation-Sedation Scale (RASS): 0 - Alert and Calm Level of Consciousness is awake, alert, obeys commands, Oriented to person, place, time, situation. Cardiovascular: Heart tones present Capillary refill < 3 seconds Patient's skin is warm and dry. Rhythm is atrial fibrillation. Respiratory: Reports shortness of breath at rest Airway is patent Respiratory effort is even, unlabored, Respiratory pattern is regular, symmetrical, Breath sounds are diminished bilaterally. GI: No signs and/or symptoms were reported involving the gastrointestinal system. : No signs and/or symptoms were reported regarding the genitourinary system. EENT: No signs and/or symptoms were reported regarding the EENT system. Derm: Skin is intact, Skin is dry, Skin is normal, Skin temperature is warm. Musculoskeletal: Circulation, motion, and sensation intact. Range of motion: intact in all extremities. 13:08 Reassessment: Patient appears in no apparent distress at this time. Patient and/or vg1 family updated on plan of care and expected duration. Pain level reassessed. Patient is alert, oriented x 3, equal unlabored respirations, skin warm/dry/pink. 14:07 Reassessment: Patient appears in no apparent distress at this time. No changes from jd3 previously documented assessment. Patient and/or family updated on plan of care and expected duration. Pain level reassessed. Patient is alert, oriented x 3, equal unlabored respirations, skin warm/dry/pink. 15:00 Reassessment: Patient appears in no apparent distress at this time. Patient and/or jd3 family updated on plan of care and expected duration. Pain level reassessed. Patient is alert, oriented x 3, equal unlabored respirations, skin warm/dry/pink. awaiting admission. 16:00 Reassessment: Patient appears in no apparent distress at this time. No changes from jd3 previously documented assessment. Patient and/or family updated on plan of care and expected duration. Pain level reassessed. Patient is alert, oriented x 3, equal unlabored respirations, skin warm/dry/pink. 17:00 Reassessment: Patient appears in no apparent distress at this time. No changes from jd3 previously documented assessment. Patient and/or family updated on plan of care and expected duration. Pain level reassessed. Patient is alert, oriented x 3, equal unlabored respirations, skin warm/dry/pink. 17:33 Reassessment: Patient and/or family updated on plan of care and expected duration. Pain jd3 level reassessed. Patient is alert, oriented x 3, equal unlabored respirations, skin warm/dry/pink. report called to Saadia ROBERTS nurse for room 214. Vital Signs: 11:06 BP 97 / 55; Pulse 55; Resp 18; Temp 98.4(TE); Pulse Ox 99% ; Weight 107.95 kg; Height 5 ss ft. 7 in. (170.18 cm); Pain 8/10; 13:08 BP 121 / 96; Pulse 67; Resp 22 S; Pulse Ox 96% on R/A; jd3 14:07 BP 88 / 55; Pulse 68; Resp 21; Pulse Ox 97% on R/A; jd3 17:27 BP 110 / 60; Pulse 65; Resp 20; Pulse Ox 100% on R/A; jd3 11:06 Body Mass Index 37.28 (107.95 kg, 170.18 cm) ED Course: 11:04 Patient arrived in ED. am2 11:04 Ranjit Eagle MD is Private Physician. am2 11:09 Triage completed. ss 11:09 Arm band placed on right wrist. ss 11:39 Gianni Polk MD is Attending Physician. kdr 12:00 José Luis Ellison RN is Primary Nurse. jd3 12:32 XRAY Chest (1 view) In Process Unspecified. EDMS 13:25 Patient has correct armband on for positive identification. Bed in low position. Call jd3 light in reach. Side rails up X 1. Adult w/ patient. Client placed on continuous cardiac and pulse oximetry monitoring. NIBP monitoring applied. medical center representative on. Pulse ox on. NIBP on. Warm blanket given. 13:25 Patient maintains SpO2 saturation greater than 95% on room air. jd3 14:37 Ranjit Eagle MD is Hospitalizing Provider. kdr 17:34 Patient admitted, IV remains in place. jd3 17:35 No provider procedures requiring assistance completed. jd3 Administered Medications: 13:38 Drug: Ondansetron 4 mg Route: PO; jd3 14:30 Follow up: Response: No adverse reaction jd3 Medication: 13:24 VIS not applicable for this client. jd3 Outcome: 14:38 Decision to Hospitalize by Provider. kdr 17:35 Admitted to Tele accompanied by tech, via wheelchair, room 214, with chart, Report jd3 called to Saadia ROBERTS 17:35 Condition: stable 17:35 Instructed on the need for admit, Demonstrated understanding of instructions. 17:37 Patient left the ED. jd3 Signatures: Dispatcher [employer] EDMS Gianni Polk MD MD kdr Alecia Joya RN RN ss Chelsey Longo am2 José Luis Ellison RN RN jd3 Dorita Yao, RN RN vg1 Corrections: (The following items were deleted from the chart) 13:21 13:08 BP 121 / 96; Pulse 22bpm; Resp 67bpm; Pulse Ox 96% RA; vg1 jd3 14:19 14:07 BP 98 / 55; Pulse 68bpm; Resp 21bpm; Pulse Ox 97% RA; jd3 jd3
[2022-09-01 15:36] LABS: SARS-CoV-2 Antigen Rapid Res Negative (Negative)
[2022-09-01] MEDS ORDERED: DIPHENOX/ATROP SULF 1 TAB PO PRN (16:27)
--- NOTE | 2022-09-01 16:34 | P.HP ---
Certification for Inpatient Patient admitted to: Inpatient With expected LOS: >2 Midnights Patient will require the following post-hospital care: None Practitioner: I am a practitioner with admitting privileges, knowledge of patient current condition, hospital course, and medical plan of care. Services: Services provided to patient in accordance with Admission requirements found in Title 42 Section 412.3 of the Code of Federal Regulations Patient History Date of Service: 09/01/22 Primary Care Provider: Fco Reason for admission: angina, esrd History of Present Illness: Patient is an office patient of [employer]. She has a history of chf, diastolic dysfunction, Sleep apnea, afib and htn. She evidently has been having chest p ain for the past 10days. Went to a moose hunter in [facility]. Was admitted and had a chest pain rule out. The patient was discharged. She was still having pain. Describes it as left sided, non radiating. Currently a 05/31. She states it is constant at this point. Was on exertion to begin with. Allergies cefepime Allergy (Verified 10/26/21 06:30) Hives codeine Allergy (Verified 05/20/22 05:03) Itching levofloxacin Allergy (Verified 10/26/21 06:30) Hives/Rash morphine Allergy (Verified 05/20/22 05:03) Itching Penicillins Allergy (Verified 10/26/21 06:30) Hives/Rash sulfamethoxazole [From Bactrim] Allergy (Verified 05/20/22 05:03) Hives trimethoprim [From Bactrim] Allergy (Verified 05/20/22 05:03) Hives Home Medications: Apixaban [Eliquis] 2.5 mg PO BID 05/19/22 Atorvastatin Calcium 1 tab PO BEDTIME 05/19/22 Brimonidine Tartrate [Alphagan P] 1 drop EACH EYE BID 05/19/22 Bumetanide 1 tab PO DAILY 05/19/22 Diclofenac Na [Voltaren D.r*] 1 tab PO BID 05/19/22 Digoxin [Lanoxin] 1 tab PO T,TH,S 05/19/22 Folic Acid 1 tab PO DAILY 05/19/22 Glucosamine/D3/Boswellia Tiffany [Osteo Bi-Flex Tablet] 1 tab PO BID 05/19/22 Melatonin 1 tab SL BEDTIME 05/19/22 Metoprolol Tartrate 1 tab PO BID 05/19/22 Midodrine HCl 1 tab PO TID 05/19/22 Pantoprazole [Protonix Tab*] 1 tab PO DAILY 05/19/22 Promethazine HCl 1 tab PO TID PRN 05/19/22 Sevelamer Carbonate [Renvela] 800 mg PO TID 05/19/22 Sucroferric Oxyhydroxide [Velphoro] 500 mg PO TID 05/19/22 Tramadol HCl [Ultram] 100 mg PO Q12H 05/19/22 Diphenox/Atropine [Lomotil] 1 tab PO TIDP PRN 7 Days #20 tab 05/22/22 Promethazine Tab [Phenergan] 25 mg PO Q6HP PRN 7 Days #20 tab 05/22/22 - Past Medical/Surgical History Diabetic: No -: Chronic hypotension -: Hyperlipidemia -: Chronic anticoagulation use -: History of nephrolithiasis requiring stent placement -: Recurrent UTI -: End-stage renal disease -: CHF -: HTN -: A-Fib -: tubal ligation -: dialysis port -: cholecystectomy -: right broken wrist -: lasik -: cataracts removed - Family History Sister -: Cancer Notes: per pt, sister has lung cancer and is being treated for a "spot on her brain" - Social History Alcohol use: No CD- Drugs: No Caffeine use: Yes Review of Systems 10-point ROS is otherwise unremarkable Cardiovascular: Chest Pain Physical Examination - Physical Exam General: Alert, In no apparent distress HEENT: Atraumatic, PERRLA, Mucous membr. moist/pink, EOMI, Sclerae nonicteric Neck: Supple, 2+ carotid pulse no bruit, No LAD, Without JVD or thyroid abnormality Respiratory: Clear to auscultation bilaterally, Normal air movement Cardiovascular: Regular rate/rhythm, Normal S1 S2 Gastrointestinal: Normal bowel sounds, No tenderness Musculoskeletal: No tenderness Integumentary: No rashes Neurological: Normal gait, Normal speech, Normal strength at 5/5 x4 extr, Normal tone, Normal affect Lymphatics: No axilla or inguinal lymphadenopathy - Studies Laboratory Data (last 24 hrs) 09/01/22 12:10: WBC 6.50, Hgb 9.4 L, Hct 29.7 L, Plt Count 103 L 09/01/22 12:10: Sodium 137, Potassium 4.7, BUN 25 H, Creatinine 5.77 H*, Glucose 92 Assessment and Plan - Problems (Diagnosis) (1) Angina at rest Current Visit: Yes Status: Acute Plan: will admit the patient. Check serial troponins. She was sent to the ER from a office visit with Dr. Chamberlain. Will discuss the plan with him (2) CHF (congestive heart failure) Current Visit: No Status: Chronic Plan: 1 + edema. She is doing well. Her lungs are clear. Will restart her metoprolol. Qualifiers: Heart failure type: diastolic Heart failure chronicity: chronic Qualified Code(s): I50.32 - Chronic diastolic (congestive) heart failure (3) ESRD (end stage renal disease) on dialysis Current Visit: No Status: Chronic Plan: discussed with Dr. Bose. She is a TTS dialysis patient (4) Sleep apnea Current Visit: No Status: Acute Plan: will order a cpap for the patient, she can also bring her home cpap Qualifiers: Primary sleep apnea of type: obstructive - Advance Directives Does patient have a Living Will: No Does patient have a Durable POA for Healthcare: No - Code Status/Comfort Care Code Status Assessed: Yes Code Status: Full Code Physician Review: Patient Assessed, Agree with Above Assessment and Plan Critical Care: No Time Spent Managing Pts Care (In Minutes): 50
--- NOTE | 2022-09-01 19:03 | P.CNS ---
Date of Consult: 09/01/22 Reason for Consult: esrd Requesting Physician: Ranjit Eagle Primary Care Provider: Fco Chief Complaint: angina, esrd History of Present Illness: 66F w/ PMHx of ESRD on HD TTS, chronic diastolic heart failure, afib, anemia, & renal osteodystrophy, who p/w L-sided chest pain, admitted for further cardiac eval. Received HD yesterday. Allergies cefepime Allergy (Verified 10/26/21 06:30) Hives codeine Allergy (Verified 05/20/22 05:03) Itching levofloxacin Allergy (Verified 10/26/21 06:30) Hives/Rash morphine Allergy (Verified 05/20/22 05:03) Itching Penicillins Allergy (Verified 10/26/21 06:30) Hives/Rash sulfamethoxazole [From Bactrim] Allergy (Verified 05/20/22 05:03) Hives trimethoprim [From Bactrim] Allergy (Verified 05/20/22 05:03) Hives Home Medications: Apixaban [Eliquis] 2.5 mg PO BID 05/19/22 Bumetanide 1 tab PO DAILY 05/19/22 Digoxin [Lanoxin] 1 tab PO T,TH,S 05/19/22 Metoprolol Tartrate 1 tab PO BID 05/19/22 Midodrine HCl 1 tab PO TID 05/19/22 Pantoprazole [Protonix Tab*] 1 tab PO BID 05/19/22 Sevelamer Carbonate [Renvela] 800 mg PO TID 05/19/22 Dicyclomine [Bentyl*] 1 tab PO TID PRN 09/01/22 Ondansetron [Zofran (Odt)*] 8 mg PO TID PRN 09/01/22 Tizanidine [Zanaflex*] 1 tab PO BID 09/01/22 - Past Medical/Surgical History Diabetic: No -: Chronic hypotension -: Hyperlipidemia -: Chronic anticoagulation use -: History of nephrolithiasis requiring stent placement -: Recurrent UTI -: End-stage renal disease -: CHF -: HTN -: A-Fib -: tubal ligation -: dialysis port -: cholecystectomy -: right broken wrist -: lasik -: cataracts removed - Family History Sister Medical History: Cancer Notes: per pt, sister has lung cancer and is being treated for a "spot on her brain" - Social History Alcohol use: No CD- Drugs: No Caffeine use: Yes Place of Residence: Home Review of Systems General: Weakness Eyes: Unremarkable ENT: Unremarkable Respiratory: Unremarkable Cardiovascular: Chest Pain Gastrointestinal: Unremarkable Genitourinary: Unremarkable Musculoskeletal: Unremarkable Integumentary: Unremarkable Neurological: Unremarkable Lymphatics: Unremarkable Physical Examination Temp Pulse Resp BP Pulse Ox 98.4 F 65 20 110/60 09/01/22 11:06 09/01/22 17:27 09/01/22 17:27 09/01/22 17:27 General: Other (NAD) HEENT: Atraumatic, Normocephalic Neck: Supple, JVD not distended Respiratory: Other (Symmetric chest expansion) Cardiovascular: No rubs, No murmurs Gastrointestinal: Soft and benign, No guarding Musculoskeletal: No clubbing Integumentary: No warmth Neurological: Normal speech, Normal tone Urinary: Other (No bladder distention) External genitalia: Deferred Rectal: Deferred Laboratory Data (last 24 hrs) 09/01/22 12:10: WBC 6.50, Hgb 9.4 L, Hct 29.7 L, Plt Count 103 L 09/01/22 12:10: Sodium 137, Potassium 4.7, BUN 25 H, Creatinine 5.77 H*, Glucose 92 Conclusions/Impression: 1. End-stage renal disease on outpt HD TTS. HD access: L TDC. EDW 103.5 kgs. Received HD yesterday. HD tomorrow. 2. Chest pain. L-sided, over L TDC site. Per other services. 3. Secondary hyperparathyroidism. Recheck PTH + 25OHD as outpt 4. Anemia of chronic kidney disease. Continue SABIHA. 4. Hypertension. Cont current med regimen. 5. Chronic diastolic HF, afib. Per other services. 6. Intradialytic hypotension. Continue midodrine. 7. Sleep apnea. Per other services.
[2022-09-01] MEDS: HOME MED 1 EA UNK (Brimonidine Tartrate [Alphagan P] 10 ML Drops) OPTH SCH (21:00)
[2022-09-01] MEDS: METOPROLOL XL 25 MG TAB PO SCH (21:50)
[2022-09-01] MEDS: APIXABAN 2.5 MG TABLET PO SCH (21:50)
[2022-09-01] MEDS: ATORVASTATIN 10 MG TAB PO SCH (21:50)
[2022-09-02] MEDS: APIXABAN 2.5 MG TABLET PO SCH ×2 (08:11→21:54)
[2022-09-02] MEDS: PROMETHAZINE INJ 25 MG/ML AMP IV PRN ×2 (08:11→16:18)
[2022-09-02] MEDS: PANTOPRAZOLE 40MG TABLET PO SCH (08:11)
[2022-09-02] MEDS: HOME MED 1 EA UNK (Brimonidine Tartrate [Alphagan P] 10 ML Drops) OPTH SCH ×2 (08:12→21:00)
[2022-09-02] MEDS: MORPHINE 4 MG/ML SYR IV PRN (08:12)
--- NOTE | 2022-09-02 12:08 | P.PN ---
Subjective Date of Service: 09/02/22 Primary Care Provider: Fco Chief Complaint: angina, esrd Subjective: No new changes (patient playing games on her phone. States she is doing well. Still having chest pain. Which does not seem to match her demeanor) Review of Systems 10-point ROS is otherwise unremarkable Cardiovascular: Chest Pain Physical Examination - Vital Signs Temperature: 98.2 F Blood Pressure: 124/69 Pulse: 73 Respirations: 18 Pulse Ox (%): 93 - Physical Exam General: Alert, In no apparent distress HEENT: Atraumatic, PERRLA, EOMI Neck: Supple, JVD not distended Respiratory: Clear to auscultation bilaterally, Normal air movement Cardiovascular: Regular rate/rhythm, Normal S1 S2 Gastrointestinal: Normal bowel sounds, No tenderness Musculoskeletal: No tenderness Integumentary: No rashes Neurological: Normal speech, Normal tone, Normal affect Lymphatics: No axilla or inguinal lymphadenopathy - Studies Laboratory Data (last 24 hrs) 09/01/22 12:10: WBC 6.50, Hgb 9.4 L, Hct 29.7 L, Plt Count 103 L 09/01/22 12:10: Sodium 137, Potassium 4.7, BUN 25 H, Creatinine 5.77 H*, Glucose 92 Assessment And Plan - Current Problems (Diagnosis) (1) CHF (congestive heart failure) Current Visit: No Status: Chronic Plan: 1 + edema. She is doing well. Her lungs are clear. Will restart her metoprolol. Qualifiers: Heart failure type: diastolic Heart failure chronicity: chronic Qualified Code(s): I50.32 - Chronic diastolic (congestive) heart failure (2) ESRD (end stage renal disease) on dialysis Current Visit: No Status: Chronic Plan: discussed with Dr. Bose. She is a TTS dialysis patient 09/02 plans for dialysis today (3) Sleep apnea Current Visit: No Status: Acute Plan: will order a cpap for the patient, she can also bring her home cpap Qualifiers: Primary sleep apnea of type: obstructive (4) Angina at rest Current Visit: Yes Status: Acute Plan: will admit the patient. Check serial troponins. She was sent to the ER from a office visit with Dr. Chamberlain. Will discuss the plan with him 09/02 Patient is comfortable. troponins are negative. No plans from cardiology. Other than dialysis for diuresis Discharge Plan: Home Plan to discharge in: 24 Hours - Code Status/Comfort Care Code Status Assessed: No Physician Review: Patient Assessed, Agree with Above Assessment and Plan Critical Care: No Time Spent Managing PTS Care (In Minutes): 20
--- NOTE | 2022-09-02 14:39 | PN ---
Date of Progress Note: 09/02/2022 Subjective: The patient was admitted with over volume, chest tightness. Cardiac enzyme has been don e. Unstable angina has been ruled out. The patient missed her dialysis yesterday. Scheduled for di alysis today. Physical Examination: Vital Signs: When I saw the patient, blood pressure 124/69, pulse of 73. Chest: Crackles bilateral base. Heart: S1, S2. Regular. Abdomen: Soft, nontender. Extremities: No edema. Neuro: Alert. No focality. Laboratory Data: For the patient; hemoglobin 9.4. Sodium 137, potassium 4.7, bicarb 31, BUN 25, cre atinine 5.7, GFR of 8, calcium 9.4. Current Medications: The patient on include; Eliquis, promethazine, Epogen, atorvastatin, digoxin, m etoprolol, pantoprazole. Assessment And Plan: 1.End-stage renal disease, over volume. We will arrange for dialysis today and we will monitor the patient. 2.Hypertension, controlled optimal. We will utilize blood pressure for more ultrafiltration. 3.Over volume. We will challenge the patient today. 4.Respiratory distress, secondary to over volume as above. JOVANY/KWAN Voice ID: [id number] Report ID: [id number]
--- NOTE | 2022-09-02 14:57 | PN ---
Date of Progress Note: 09/02/2022 Subjective: Seen by bedside. No chest pain. Review of Systems: No further chest pain, but she has shortness of breath. No orthopnea. No lower extremity edema. No nausea, vomiting, diarrhea. No abdominal pain. No dysuria, polyuria, or urinary urgency. No skin rash. All other systems reviewed and they were negative. Physical Examination: Vital Signs: Reviewed. Head and Neck: Pupils are equal, reactive to light. Intact eye movements. No JVD. No cervical lym phadenopathy. Neck is supple. Thyroid is not enlarged. Lungs: Decreased breathing sounds with rhonchi bilaterally. No accessory muscle use or muscle retra ction. Heart: Regular rate and rhythm. No extra sounds. Abdomen: Soft, nontender. Bowel sounds positive. No organomegaly. No masses or hernia. No rigidi ty or rebound. Extremities: 3+ edema bilaterally. No clubbing or cyanosis. Intact pulses. Skin: No rash. Neurologic: Alert, awake, oriented x3. No acute focal deficits appreciated. Investigations: Three cardiac enzymes sets were negative. Assessment And Recommendations: 1.Chest pain. She had recent negative stress test and cardiac enzymes are negative. No further car diac testing is recommended. Her symptoms likely due to fluid overload condition. 2.Acute on chronic diastolic heart failure exacerbation with fluid retention. The patient needs more fluid removal with dialysis as planned and recommended by Nephrolo [facility]. /KWAN Voice ID: [id number] Report ID: [id number]
[2022-09-02] MEDS: DIGOXIN 0.125 MG TABLET PO SCH (16:18)
[2022-09-02] MEDS ORDERED: EPOETIN ALFA-EPBX 4,000 UNIT/ML VIAL SQ SCH (18:00)
[2022-09-02] MEDS: ATORVASTATIN 10 MG TAB PO SCH (21:53)
[2022-09-02] MEDS: METOPROLOL XL 25 MG TAB PO SCH (21:54)
[2022-09-03] MEDS: PROMETHAZINE INJ 25 MG/ML AMP IV PRN ×3 (02:04→17:09)
[2022-09-03] MEDS: MORPHINE 4 MG/ML SYR IV PRN ×3 (02:04→17:09)
[2022-09-03 06:17] LABS: Absolute Lymphocytes (CBC) 0.8 K/uL (0.7-4.9); Hematocrit 30.3 % (36.0-45.0); Lymphocytes % 13.3 % (15.3-44.8); MCV 101.3 fL (80-100); MPV 7.8 fL (7.6-11.3); RBC Red Blood Cell Count 2.99 M/uL (3.86-4.86)
[2022-09-03 06:48] LABS: Albumin 3.2 g/dL (3.4-5.0); Bilirubin Total 1.2 mg/dL (0.2-1.0); Potassium 4.6 mmol/L (3.5-5.1); Protein, Total 6.8 g/dL (6.4-8.2)
[2022-09-03] MEDS: APIXABAN 2.5 MG TABLET PO SCH ×2 (08:38→22:12)
[2022-09-03] MEDS: PANTOPRAZOLE 40MG TABLET PO SCH (08:38)
[2022-09-03] MEDS: HOME MED 1 EA UNK (Brimonidine Tartrate [Alphagan P] 10 ML Drops) OPTH SCH ×2 (08:38→17:17)
[2022-09-03] MEDS: DIGOXIN 0.125 MG TABLET PO SCH (08:40)
--- NOTE | 2022-09-03 10:53 | P.PN ---
Subjective Date of Service: 09/03/22 Primary Care Provider: Fco Chief Complaint: angina, esrd Subjective: Improving (3.5 lts removed Patient is comfortable playing on her ipad. still complaints of chest pain. Seems out of proportion to her vitals, labs and physical exam) Review of Systems 10-point ROS is otherwise unremarkable Respiratory: Shortness of Breath Cardiovascular: Chest Pain Physical Examination - Vital Signs Temperature: 98.1 F Blood Pressure: 121/73 Pulse: 83 Respirations: 18 Pulse Ox (%): 93 - Physical Exam General: Alert, In no apparent distress HEENT: Atraumatic, PERRLA, EOMI Neck: Supple, JVD not distended Respiratory: Clear to auscultation bilaterally, Normal air movement Cardiovascular: Regular rate/rhythm, Normal S1 S2 Gastrointestinal: Normal bowel sounds, No tenderness Musculoskeletal: No tenderness Integumentary: No rashes Neurological: Normal speech, Normal tone, Normal affect Lymphatics: No axilla or inguinal lymphadenopathy Assessment And Plan - Current Problems (Diagnosis) (1) CHF (congestive heart failure) Current Visit: No Status: Chronic Plan: 1 + edema. She is doing well. Her lungs are clear. Will restart her metoprolol. 09/03 no plans on cardiac testing. this seems to be an exacerbation Qualifiers: Heart failure type: diastolic Heart failure chronicity: chronic Qualified Code(s): I50.32 - Chronic diastolic (congestive) heart failure (2) ESRD (end stage renal disease) on dialysis Current Visit: No Status: Chronic Plan: discussed with Dr. Bose. She is a TTS dialysis patient 09/02 plans for dialysis today (3) Sleep apnea Current Visit: No Status: Acute Plan: will order a cpap for the patient, she can also bring her home cpap Qualifiers: Primary sleep apnea of type: obstructive (4) Angina at rest Current Visit: Yes Status: Acute Plan: will admit the patient. Check serial troponins. She was sent to the ER from a office visit with Dr. Chamberlain. Will discuss the plan with him 09/03 resolved. Most likely due to acute chf exacerbation Discharge Plan: Home Plan to discharge in: 24 Hours - Code Status/Comfort Care Code Status Assessed: No Physician Review: Patient Assessed, Agree with Above Assessment and Plan Critical Care: No Time Spent Managing PTS Care (In Minutes): 20
--- NOTE | 2022-09-03 13:15 | PN ---
Date of Progress Note: 09/03/2022 Subjective: The patient was admitted to the hospital with over volume. The patient had dialysis yes terday. Still feeling shortness of breath. Physical Examination: Vital Signs: Blood pressure 121/73, pulse of 83, afebrile. Chest: Crackles bilateral. Heart: S1, S2. Systolic murmur. Abdomen: Soft, nontender. Extremity: No edema. Laboratory Data: Hemoglobin 9.8. Sodium 139, potassium 4.6, bicarb 29, BUN 24, creatinine 5.5, calc ium 9.2. Albumin 3.2. Current Medications: The patient on include Eliquis, Epogen, digoxin, metoprolol 25 b.i.d. Assessment And Plan: 1.End-stage renal disease with over volume. We will arrange for extra dialysis tomorrow to establis h better volume control. 2.Hypertension. We will utilize blood pressure for more ultrafiltration. 3.Anemia of chronic kidney disease. Continue SABIHA. 4.Over volume. We will do extra dialysis tomorrow. SANAZ Voice ID: [id number] Report ID: [id number]
[2022-09-03] MEDS: ATORVASTATIN 10 MG TAB PO SCH (22:12)
[2022-09-03] MEDS: METOPROLOL XL 25 MG TAB PO SCH (22:12)
[2022-09-04 04:39] VITALS: O2SAT 94
[2022-09-04 07:49] LABS: Absolute Lymphocytes (CBC) 0.7 K/uL (0.7-4.9); Hematocrit 28.7 % (36.0-45.0); Lymphocytes % 14.5 % (15.3-44.8); MPV 8.1 fL (7.6-11.3); RBC Red Blood Cell Count 2.81 M/uL (3.86-4.86)
[2022-09-04 08:09] LABS: Albumin 2.9 g/dL (3.4-5.0); Bilirubin Total 1.4 mg/dL (0.2-1.0); Potassium 5.1 mmol/L (3.5-5.1); Protein, Total 6.6 g/dL (6.4-8.2)
--- NOTE | 2022-09-04 08:21 | P.DS ---
Admission Date: 09/01/22 Discharge Date: 09/04/22 Primary Care Provider: Fco Disposition: ROUTINE DISCHARGE Discharge Condition: GOOD Reason for Admission: angina, esrd - Problems (1) CHF (congestive heart failure) Current Visit: No Status: Chronic Qualifiers: Heart failure type: diastolic Heart failure chronicity: chronic Qualified Code(s): I50.32 - Chronic diastolic (congestive) heart failure (2) ESRD (end stage renal disease) on dialysis Current Visit: No Status: Chronic (3) Sleep apnea Current Visit: No Status: Acute Qualifiers: Primary sleep apnea of type: obstructive (4) Angina at rest Current Visit: Yes Status: Acute Brief History of Present Illness: Patient is an office patient of [employer]. She has a history of chf, diastolic dysfunction, Sleep apnea, afib and htn. She evidently has been having chest pain for the past 10days. Went to a scrap bunch maker in [facility]. Was admitted and had a chest pain rule out. The patient was discharged. She was still having pain. Describes it as left sided, non radiating. Currently a 05/31. She states it is constant at this point. Was on exertion to begin with. Hospital Course: Patient was admitted. Had negative troponins. She had improved edema after dialysis. Was resting comfortably every day. However complained of chest pain. There is no plans for cardiac testing. Was done last week in [facility]. Will have her follow up as an outpatient Vital Signs/Physical Exam: Temp Pulse Resp BP Pulse Ox 98.2 F 86 20 99/53 L 94 09/04/22 04:00 09/04/22 04:00 09/04/22 04:00 09/04/22 04:00 09/04/22 04:00 General: Alert, In no apparent distress HEENT: Atraumatic, PERRLA, EOMI Neck: Supple, JVD not distended Respiratory: Clear to auscultation bilaterally, Normal air movement Cardiovascular: Regular rate/rhythm, Normal S1 S2 Gastrointestinal: Normal bowel sounds, No tenderness Musculoskeletal: No tenderness Integumentary: No rashes Neurological: Normal speech, Normal tone, Normal affect Lymphatics: No axilla or inguinal lymphadenopathy Laboratory Data at Discharge: WBC 4.70 K/uL (4.3-10.9) 09/04/22 06:22 Hgb 9.3 g/dL (12.0-15.0) L 09/04/22 06:22 Hct 28.7 % (36.0-45.0) L 09/04/22 06:22 Plt Count 97 K/uL (152-406) L 09/04/22 06:22 Sodium 141 mmol/L (136-145) 09/04/22 06:22 Potassium 5.1 mmol/L (3.5-5.1) 09/04/22 06:22 BUN 39 mg/dL (7-18) H 09/04/22 06:22 Creatinine 7.37 mg/dL (0.55-1.3) H* 09/04/22 06:22 Glucose 100 mg/dL (74-106) 09/04/22 06:22 Total Bilirubin 1.4 mg/dL (0.2-1.0) H 09/04/22 06:22 AST 11 U/L (15-37) L 09/04/22 06:22 ALT 17 U/L (12-78) 09/04/22 06:22 Alkaline Phosphatase 146 U/L (45-117) H 09/04/22 06:22 Home Medications: Apixaban [Eliquis] 2.5 mg PO BID 05/19/22 Bumetanide 1 tab PO DAILY 05/19/22 Digoxin [Lanoxin] 1 tab PO T,TH,S 05/19/22 Metoprolol Tartrate 1 tab PO BID 05/19/22 Midodrine HCl 1 tab PO TID 05/19/22 Pantoprazole [Protonix Tab*] 1 tab PO BID 05/19/22 Sevelamer Carbonate [Renvela] 800 mg PO TID 05/19/22 Dicyclomine [Bentyl*] 1 tab PO TID PRN 09/01/22 Ondansetron [Zofran (Odt)*] 8 mg PO TID PRN 09/01/22 Tizanidine [Zanaflex*] 1 tab PO BID 09/01/22 Diet: Renal Activity: Ad mari Followup: Karoline Arce [ACTIVE - CAN ADMIT] - Karoline Arce MD [OUTSIDE PHYSICIAN] - 2-3 Days Rnajit Eagle MD [Primary Care Provider] - 1 Week Physician Review: Patient Assessed, Agree with Above Assessment and Plan Time spent managing pt's care (in minutes): 30
[2022-09-04] MEDS: HOME MED 1 EA UNK (Brimonidine Tartrate [Alphagan P] 10 ML Drops) OPTH SCH (09:00)
[2022-09-04] MEDS: DIGOXIN 0.125 MG TABLET PO SCH (09:00)
[2022-09-04 09:16] LABS: Anisocytosis 1+; Blood Morphology Comment NOTED (NOT SEEN); Macrocytosis 1+; Ovalocytes 1+; Platelet Estimate DECR; Platelets, Giant OCCASIONAL; Polychromasia 1+; White Blood Cell Scan OK (OK)
[2022-09-04] MEDS: PANTOPRAZOLE 40MG TABLET PO SCH (09:41)
[2022-09-04] MEDS: MORPHINE 4 MG/ML SYR IV PRN (09:41)
[2022-09-04] MEDS: PROMETHAZINE INJ 25 MG/ML AMP IV PRN (09:41)
[2022-09-04] MEDS: APIXABAN 2.5 MG TABLET PO SCH (09:41)
[2022-09-04 14:13] VITALS: BP 131/67; TEMP 99
[2022-09-04 14:53] VITALS: BMI 33.5
--- NOTE | 2022-09-04 15:16 | EKG ---
Test Date: 2022-09-01 Test Time: 11:11:53 Hand Trimmer: JUDY MEASUREMENT RESULTS: Intervals: Rate: 52 VA: QRSD: 86 QT: 418 QTc: 388 [place]: P: VA: QRS: 109 T: 40 INTERPRETIVE STATEMENTS: Atrial fibrillation with slow ventricular response Possible Right ventricular hypertrophy Nonspecific ST and T wave abnormality Abnormal ECG Compared to ECG 08/03/2022 14:44:44 ST (T wave) deviation now present Incomplete right bundle-branch block no longer present T-wave abnormality no longer present Possible ischemia no longer present Electronically Signed On 09-04-22 15:11:09 OVERLOCK WAISTLINE JOINER by Quentin Chamberlain
--- NOTE | 2022-09-04 16:06 | PN ---
Date of Progress Note: 09/04/2022 Subjective: Seen by bedside. She is in dialysis. Her breathing is improving. Physical Examination: Vital Signs: Reviewed. Head and Neck: Pupils are equal, reactive to light. Intact eye movements. Positive JVD. No cervic al lymphadenopathy. Neck is supple. Thyroid is not enlarged. Lungs: Clear to auscultation bilaterally. No rhonchi, wheezing, or crackles. No accessory muscle u se. Heart: Regular rate and rhythm. No extra sounds. Abdomen: Soft, nontender. Bowel sounds positive. No organomegaly. No masses or hernia. No rigidi ty or rebound. Extremities: No clubbing or cyanosis. Intact pulses. Positive edema. Skin: No rash. Neurologic: Alert, awake, oriented x3. No acute focal deficits appreciated. Investigations: Labs were reviewed. Assessment And Recommendations: 1.Acute on chronic diastolic heart failure with fluid retention, probably not compliant with dialysi s. She is having in-house dialysis by Nephrology and fluid removal adjustment accordingly. 2.Chest pain. It is noncardiac. Troponins are negative and she had normal stress test recently. SR/MODL Voice ID: [id number] Report ID: [id number]
--- NOTE | 2022-09-05 06:24 | PN ---
Date of Progress Note: 09/04/2022 Chief Complaint: Congestive heart failure associated with severe fatigue, shortness of breath, gener alized weakness, and hypotensive episode. Subjective: The patient was admitted to the hospital because of volume overload. Cardiology consult ation is requested. The patient is dialysis dependent. She has end-stage renal disease and is under going dialysis 3 times per week. Review of Systems: The patient is feeling better. Today, she is undergoing dialysis. Physical Examination: Vital Signs: Blood pressure 110/70, heart rate 83. Chest: Few crackles. Heart: S1, S2. Systolic murmur 2/6 at left lower sternal border. Abdomen: Obese, soft, nontender. Extremities: Slight edema. Impression And Plan: 1.End-stage renal disease, fluid overload. Continue p.o. fluid restriction. Monitor fluid balance. The patient will have dialysis tomorrow. 2.Hypertension. Currently, the patient is off blood pressure medication due to history of hypotensi ve episode, although the patient may need to continue beta-gurmeet after received Cardiology recommen dation. 3.Anemia of chronic kidney disease. Continue SABIHA, fluid overload. Continue p.o. fluid restriction, low-sodium diet. 4.History of intradialytic hypotension. The patient will follow up with Cardiology for workup of po ssible pulmonary hypertension. EB/MODL Voice ID: [id number] Report ID: [id number]
== END 2022-09-04 15:11 | disposition home or self-care (01) | DRG 640 ==
LOC: ER 11:04 → 2ND 16:25
PROVIDERS: ADMIT Internal Medicine; ATTEND Internal Medicine
PROC: 5A1D70Z Performance of Urinary Filtration, Intermittent, Less than 6 Hours Per Day (ICD-10-PCS; principal; 2022-09-02)
DX: E87.70 Fluid overload, unspecified (principal); N18.6 End stage renal disease; I13.2 Hypertensive heart and chronic kidney disease with heart failure and with stage 5 chronic kidney disease, or end stage renal disease; I50.32 Chronic diastolic (congestive) heart failure; N25.81 Secondary hyperparathyroidism of renal origin; D63.1 Anemia in chronic kidney disease; I95.3 Hypotension of hemodialysis; I48.91 Unspecified atrial fibrillation; G47.33 Obstructive sleep apnea (adult) (pediatric); E78.5 Hyperlipidemia, unspecified; R06.03 Acute respiratory distress; Z99.2 Dependence on renal dialysis; Z88.5 Allergy status to narcotic agent; Z88.0 Allergy status to penicillin; Z88.1 Allergy status to other antibiotic agents; Z99.89 Dependence on other enabling machines and devices; Z79.01 Long term (current) use of anticoagulants; Z91.15 Patient's noncompliance with renal dialysis; Z98.51 Tubal ligation status; Z90.49 Acquired absence of other specified parts of digestive tract; Z28.310 Unvaccinated for COVID-19; Z20.822 Contact with and (suspected) exposure to COVID-19
CPT/HCPCS: 36415; 71045; 80048; 80053; 82947; 84484; 85025; 87811; 90935; 93005; 99285; J1644; J2550; Q0162; Q5106

== ENCOUNTER 2022-09-23 09:07 | Emergency (ER) | payer OTHER, BC ==
--- OUTSIDE RECORDS SUMMARY | 2022-09-23 09:25 | XMS REPORT | Continuity of Care Document ---
:1955 Author Organization [facility] t Address [address] [place] [address] Care Team Providers Name Role Phone Michael KINNEY, Antonella Davis Primary Care Physician Adam King Attending Clinician Unavailable KORINA GUNN Attending Clinician Unavailable DO CY SOSA Attending Clinician Unavailable Mary Ontiveros MD Attending Clinician [phone] Mary Heaton MD Attending Clinician Grzegorz KINNEY, Clifton Gamboa Attending Clinician + [phone] Maddison Wharton MD Attending Clinician Taylor Cerna MA Attending Clinician Unavailable Quentin Chamberlain Attending Clinician Unavailable Ilana Attending Clinician Unavailable Jose C KINNEY, Taylor Laughlin Attending Clinician [phone] Laura Carbajal MD Attending Clinician Wendie KINNEY, Amos Attending Clinician Elroy Rutledge Attending Clinician Antonella Rodriguez Attending Clinician Avis KINNEY, Ashley Klein Attending Clinician [phone] Vern KINNEY, Travon Hadley Attending Clinician Shaikh NIRMAL, Gutierrez Attending Clinician Jena Cool DO Attending Clinician Radu KINNEY, Puneet Goodson Attending Clinician Claudio KINNEY, Greg Carpenter Attending Clinician Mic Aiken Attending Clinician Unavailable Chris Carter Attending Clinician Unavailable Ras ROBERTS, Phuong Attending Clinician Unavailable Jermaine KINNEY, Francisco Sunshine Attending Clinician [place] KINNEY, Michelle Dowell Attending Clinician [phone] Hannah KINNEY, Robert Attending Clinician [phone] Nishi Shelton MD Attending Clinician cSott Flower MD Attending Clinician [email or web address] Attending Clinician Unavailable MD ASHLEY MARTÍNEZ Attending [...] Clinician Unavailable Ranjit Eagle Admitting Clinician Unavailable Armstedg_Zenaida Admitting Clinician Unavailable LAURA CARBAJAL Admitting Clinician Unavailable JENA COOL Admitting Clinician Unavailable MD GUTIERREZ LEAL Admitting Clinician Unavailable MICHELLE GOLDEN Admitting Clinician Unavailable MEAGAN_MAYTE_Porfirio_Haris Admitting Clinician Unavailable MD ASHLEY MARTÍNEZ Admitting Clinician Unavailable COURTNEY WHEAT Admitting Clinician Unavailable MD COURTNEY WHEAT Admitting Clinician Unavailable MARY HEATON Admitting Clinician Unavailable MD PATRICIO REID Admitting Clinician Unavailable MD MICHELLE GOLDEN Admitting Clinician Unavailable DR EDUIN BARRAGAN Admitting Clinician Unavailable Payers Payer Name Policy Type Policy Number Effective Date Expiration Date raf MEDICARE B-[place]: [id number] 2021 [employer] 00:00:00 Problems Condition Condition Condition Status Onset Resolution Last Treating Co mments Source Name Details Category Date Date Treatment Clinician Date Chest pain Chest pain Disease Active 2021-10 M ethodi with high with high 1-05 st risk of risk of 00:00: Hospita acute acute 00 l coronary coronary syndrome syndrome Hyperkalem Hyperkalem Disease Active M ethodi ia ia 06-24 st 00:00: Hospita 00 l Fluid Fluid Disease Active Methodi overload overload 04-28 st 00:00: Hospita 00 l COVID-19 COVID-19 Disease Active Metho di virus virus 04-28 st detected detected 00:00: Hospit a 00 l Acute back Acute back Disease Active M ethodi pain pain 2- st 00:00: Hospita 00 l Sepsis Sepsis Disease Active Methodi 9-27 st 00:00: Hospita 00 l ARF (acute ARF (acute Disease Active M ethodi renal renal 07-18 failure) failure) 00:00: Hospit a 00 l Hypoxemia Hypoxemia Disease Active Met hodi 07-18 00:00: Hospita 00 l Pulmonary Pulmonary Disease Active Met hodi edema edema 07-18 00:00: Hospita 00 l UTI UTI Disease Active Methodi (urinary (urinary 07-18 tract tract 00:00: Hospita infection) infection) 00 l Shortness Shortness Disease Active Met hodi of breath of breath 07-15 00:00: Hospita 00 l Venous Venous Disease [...] mellitus mellitus 07-14 00:00: Hospita 00 l Dysuria Dysuria Disease Active Methodi 07-14 00:00: Hospita 00 l Edema Edema Disease Active Methodi 07-14 00:00: Hospita 00 l Hyperlipid Hyperlipid Disease Active Overview : Padmaja emery 07-14 00:00: g of this Hospita 00 note [...] Atrial Disease Active Methodi fibrillati fibrillati 07-14 st on on 00:00: Hospita 00 l Chronic Chronic Disease Active Methodi venous venous 07-14 stasis stasis 00:00: Hospita 00 l Abdominal Abdominal Disease Active Met hodi pain pain 05-19 st 00:00: Hospita 00 l CHF CHF Disease Active Methodi (congestiv (congestiv 04-19 st e heart e heart 00:00: Hospita failure) failure) 00 l Flank pain Flank pain Disease Active M ethodi 04-08 st 00:00: Hospita 00 l Renal Renal Disease Active Overview: Method i stone stone 04-[address] 00:00: g of this Hospita 00 note l might be different from the original. Added automatic ally from request for surgery [id number] NATALYA NATALYA Diagnosis Active 2021-02-24 Mem oria Active 02-14 12:03:00 l 02/14/2021 00:00: Vicente n [facility] [place] Symptomati Symptomati Disease Active Overview : Methodi c anemia c anemia 4-[address] 00:00: g of this Hospita 00 note l might be different from the original. Added automatic ally from request for surgery [id number] Acute Acute Disease Active Methodi gallstone gallstone 3-12 st pancreatit pancreatit 00:00: Ho spita is is 00 l Hypervolem Hypervolem Disease Active M ethodi ia ia 12-17 st 00:00: Hospita 00 l Hypotensio Hypotensio Disease Active 2019-10 M ethodi n n 2- st 00:00: Hospita 00 l Respirator Respirator [...] l Left foot Left foot Disease Active 2018-10 Met hodi infection infection 0-15 st 00:00: Hospita 00 l Cellulitis Cellulitis Disease Active M ethodi of left of left 9-15 st leg leg 00:00: Hospita 00 l Bacteremia Bacteremia Disease Active M ethodi due to due to 06-28 st Pseudomona Pseudomona 00:00: [facility] 00 l COLON COLON Diagnosis Active 2016-11-17 [facility] stephena CANCER CANCER - 05:49:00 l SCREENING- SCREENING- 00:00: He lea Z12.11 Z12.11 00 Active 11/14/2016 [place] R92.1 - R92.1 - Diagnosis Active 2016-04-16 Memoria MAMMOGRAPH MAMMOGRAPH 01-31 15:55:00 l IC IC 00:01: Denis CALCIFCN CALCIFCN 00 FOUND ON FOUND ON Active 02/01/2016 [facility] [place] Z12.31 - Z12.31 - Diagnosis Active 2015-11-30 Memoria ENCNTR ENCNTR - 07:08:00 l SCREEN SCREEN 00:01: Denis MAMMOGRAM MAMMOGRAM 00 FOR MA FOR MA Active 11/12/2015 [facility] [place] RT WRIST RT WRIST Diagnosis Active 2016-12-28 [facility] DISTAL DISTAL 1- 02:03:00 l RADIUS RADIUS 09:00: Denis CLSD FX CLSD FX 00 Active 10/22/2015 [facility] Abnormal Abnormal Disease Active Overview: Fl thodi glucose glucose 7-[address] level level 00:00: g of this Hospita 00 note l might be different from the original. Data migrated from [employer] on 04/28/15.Da ta migrated from [employer] on 04/28/15.Da ta migrated from [employer] on 04/28/15. Obstructiv Obstructiv Disease Active Overview : Methodi [...] migrated from [employer] on 03/20/15. Lymphedema Lymphedema Disease Active Overview : Methodi 2-[address] 00:00: g of this Hospita 00 note l might be different from the original. Data migrated from [employer] on 03/20/15. Depressive Depressive Disease Active Overview : Methodi disorder disorder 4-[address] 00:00: g of this Hospita 00 note l might be different from the original. Data migrated from [employer] on 03/20/15.D riley migrated from [employer] on 03/20/15.D riley migrated from [employer] on 03/20/15.D riley migrated from [employer] on 03/20/15. Hypothyroi Hypothyroi Disease Active Overview : Methodi dism dism 4-[address] 00:00: g of this Hospita 00 note l might be different from the original. Data migrated from [employer] on 03/20/15. Obesity Obesity Problem Active 2016-05-15 Me moria (disorder) (disorder) 8 00:23:22 l Active 00:00: Denis 06/10/2012 00 Problem 05/15/2016 Data migrated from [employer] on 03/20/15. MH OPID Brittany, OPID [place], [facility] Cobalamin Cobalamin Disease Active Overview: Methodi deficiency deficiency 7- Formattin st 00:00: g of this Hospita [...] Centricity on 03/20/15. MH OPID Brittany, OPID [place], [facility] [place] [facility] Edema of Edema of Problem Active 2022-04-22 Memoria lower lower 03:11:55 l extremity extremity Herm connie (finding) (finding) Active Problem 04/22/2022 [facility], [facility] [place], [place] Hypertensi Problem Active 2022-04-22 M emoria ve Hypertensi 03:11:55 l disorder, ve [place] systemic disorder, arterial systemic (disorder) arterial (disorder) Active Problem 04/22/2022 [facility] [place], [facility] [place] Hypertensi Hypertens Problem Active 2022-04-22 Memoria ve renal satnam renal 03:11:55 l disease disease [place] (disorder) (disorder) Active Problem 04/22/2022 [facility], [facility] [place], [place] Lymphedema Lymphedem Problem Active 2022-04-22 Memoria of lower a of lower 03:11:55 l extremity extremity Herm connie (disorder) (disorder) Active Problem 04/22/2022 [facility], [facility] [place] Morbid Morbid Problem Active 2022-04-22 Turner arnoldo obesity obesity 03:11:55 l (disorder) (disorder) He rmann Active Problem 04/22/2022 [facility], [facility] Brittany, [facility] [place],[facility] [place] Post-disch Post-disc Problem Active 2022-04-22 Memoria arge harge 03:11:55 l follow-up follow-up Karoline rosales (finding) (finding) Active Problem 04/22/2022 [facility], [place] Stasis Stasis Problem Active 2022-04-22 Turner arnoldo ulcer ulcer 03:11:55 l (disorder) (disorder) He rmann Active Problem 04/22/2022 [facility], [facility] [place], [place] Swelling - Swelling Problem Active 2022-04-22 Memoria edema - - edema - 03:11:55 l symptom symptom Denis (finding) (finding) Active Problem 04/22/2022 [facility], [facility] [place], [place] Kidney Kidney Problem Active 2016-11-20 Turner arnoldo disease disease 03:07:28 l (disorder) (disorder) He rmann Active Problem 11/20/2016 [place] RIGHT RIGHT Diagnosis Active 2016-03-09 Mem oria WRIST WRIST 15:06:00 l DISTAL DISTAL Denis RADIUS RADIUS CLSD FX CLSD FX Active [facility] [place] [facility] DISTAL DISTAL Diagnosis Active 2016-04-21 Me moria RADIUS RADIUS 09:46:00 l CLSD FX CLSD FX Denis Active [facility] Long-term Long-term Problem Active 2022-04-22 Memoria current current 03:11:55 l use of use of Denis drug drug therapy therapy (situation (situation ) ) Active Problem 04/22/2022 Medical Group Cholestero Cholester Problem 2016-01-01 Memoria l ol 05:02:18 l (substance (substance He rmann ) ) Problem 01/01/2016 [facility] Sleep Sleep Problem 2016-01-01 Memor ia apnea apnea 05:02:18 l (finding) (finding) Herm connie Problem 01/01/2016 <sup>2</howell p>does not use cpap [facility] Calcificat Calcifica Problem Resolve 2022-04-22 Memoria ion of tion of d 03:11:55 l breast breast [place] (finding) (finding) Resolved Problem 04/22/2022 Left [facility], [facility] Brittany, [facility] [place], [facility] [facility], [place] Acute Acute Problem Active 2020-02-08 Memor ia urinary urinary 22:36:35 l tract tract [place] infection infection (disorder) (disorder) Active Problem 02/08/2020 Medical Group Chronic Chronic Problem Active 2020-02-08 Me coll[place] renal renal 22:36:35 l impairment impairment He rmann (disorder) (disorder) Active Problem 02/08/2020 [facility], [facility] Brittany, [facility] [place], [facility] [facility], [place] Benign Benign Problem Active 2022-04-22 Turner arnoldo essential essential 03:11:55 l hypertensi hypertensi He rmann on on (disorder) (disorder) Active Problem 04/22/2022 [facility], ANTHONY Stoo, [facility] [place], [facility], [place] Cardiorena Cardioren Problem Active 2022-04-22 Memoria l syndrome al 03:11:55 l (disorder) syndrome Herm connie (disorder) Active Problem 04/22/2022 [facility], [facility] [place] Chronic Chronic Problem Active 2022-04-22 Me moria kidney kidney 03:11:55 l disease disease Denis (disorder) (disorder) Active Problem 04/22/2022 [facility], [facility] [place], [place] Chronic Chronic Problem Active 2022-04-22 Me moria kidney kidney 03:11:55 l disease disease [place] stage 3 stage 3 (disorder) (disorder) Active Problem 04/22/2022 [facility], [facility] [place] Chronic Chronic Problem Active 2022-04-22 Me moria pain pain 03:11:55 l (finding) (finding) Herm connie Active Problem 04/22/2022 [facility], [facility] [place], [place] Dependence Dependenc Problem Active 2022-04-22 Memoria on e on 03:11:55 l supplement supplement Jeevan tate al oxygen al oxygen (finding) (finding) Active Problem 04/22/2022 [facility], [place] Acute Acute Problem Resolve 2016-05-15 2016-05-15 Memoria otitis otitis d 02-12 00:23:22 00:23:22 l media media 00:00: Denis (disorder) (disorder) 00 Resolved 02/12/2013 Problem 05/15/2016 Data migrated from [facility] on 05/08/15. ANTHONY [place], [facility] [place],[facility] History of Past [...] as acute 00 or chronic or chronic 04/22/2022 Medical Group Other Other Problem 2020-102021-10-20 2021-10-20 M emoria abnormal abnormal 12-18 01:18:13 01:18:13 l glucose glucose 21:47: Denis 10/17/2021 00 10/20/2021 Medical Group Other long Other Problem 2020-102021-10-20 2021-10-20 Memoria term mcfp 12-18 01:18:13 01:18:13 l (current) (current) 21:46: [...] Jeevan tate d d 00 10/17/2021 10/20/2021 Medical Group Dependence Dependenc Problem 2020-102021-09-12 2021-09-12 Memoria on e on 11-09 01:29:16 01:29:16 l supplement supplement 21:17: Jeevan tate al oxygen al oxygen 00 09/09/2021 09/12/2021 Medical Group Unsteadine Unsteadin Problem 2020-102021-09-12 2021-09-12 Memoria ss on feet ess on 11-09 01:29:16 01:29:16 l feet 21:13: Deins 09/09/2021 00 09/12/2021 Medical Group Weakness Weakness Problem 2020-102021-09-12 2021-09-12 Memoria 09/09/202111-09 01:29:16 01:29:16 l 21:13: Vicente n 1 [facility] Medical Group Allergies, Adverse Reactions, Alerts Allergy Allergy Status Severity Reaction(s) Onset Inactive Treating Comm ents Source Name Type Date Date Clinician codeine DA Active [facility] 5-13 Clear 00:00: Rodriguez [facility] sulfamet DA Active [facility] hoxazole 03-03 Clear 00:00: Rodriguez [facility] trimetho DA Active [facility] prim - Clear 00:00: Rodriguez [facility] Penicill DA Active U [facility] A ins 02-24 Clear 00:00: Rodriguez [facility] cefepime DA Active [facility] 5-06 Clear 00:00: Rodriguez [facility] levoflox DA Active [facility] acin 5 Clear 00:00: Rodriguez [facility] Sulfamet Propensi Active Other (See Unable to Methodi hoxazole ty to Comments) 07-[address] -Trimeth adverse 00:00: to kidney Hosp naye oprim reaction 00 injury in l s to past drug Cefepime Propensi Active Rash Method i ty to 07-11 st adverse 00:00: Hospita reaction 00 l s to drug Levoflox Propensi Active Rash Method i acin ty to 07-11 adverse 00:00: Hospita reaction 00 l s [...] 2</sup> Denis codeine codeine Active Memoria l [place] Bactrim Bactrim Active Memoria l Denis penicill penicill Active Memori a ins ins l [place] Family History Family Member Diagnosis Comments Start Date Stop Date Source Natural father Alcohol abuse [facility] Maternal grandfather [facility] Maternal grandmother No Known Problems [facility] Natural mother No Known Problems [facility] Paternal grandfather No Known Problems [facility] Paternal grandmother Heart disease [facility] Natural sister Cancer [facility] Social History Social Habit Start Date Stop Date Quantity Comments Source History [facility] Scientologist Alcohol Std Hospital Drinks History [facility] Alcohol intake 2022-08-26 2022-08-26 Ex-drinker Scientologist 00:00:00 00:00:00 (finding) Hospital History SDOH 2021-07-13 2021-07-13 5 Scientologist Financial 00:00:00 00:00:00 Hospital History SDOH IPV [...] Methodi st Scarcity 00:00:00 00:00:00 Hospital History SDOH 2021-07-13 2021-07-13 2 Scientologist Transport Med 00:00:00 00:00:00 Hospital History [facility] 2021-07-13 2021-07-13 2 Scientologist Transport Non-Med 00:00:00 00:00:00 Hospita l History [facility] 2021-07-13 2021-07-13 2 Scientologist Housing Unable to 00:00:00 00:00:00 Hospita l Pay History [facility] 2021-07-13 2021-07-13 1 Scientologist Housing Places 00:00:00 00:00:00 Hospital Lived History [facility] 2021-07-13 2021-07-13 2 Scientologist Housing Homeless 00:00:00 00:00:00 Hospital Last Year Alcohol Comment 2021-02-03 2021-02-03 rarely Scientologist 00:00:00 00:00:00 Hospital History [facility] 2020-12-17 2020-12-17 1 Scientologist Alcohol Frequency 00:00:00 00:00:00 Hospita l Social History 2020-09-15 2020-09-15 [facility] 15:59:50 15:59:50 Tobacco use and 2019-06-26 2019-06-26 Smokeless tobacco Me thodist exposure 00:00:00 00:00:00 non-user Hospital Sex Ass[birth year] At [birth year] TIKA [place]am 00:00:00 [facility]:00 [facility] Smoking Status Start Date Stop Date Source Social [employer] Medications Ordered Filled Start Stop Current Ordering Indication Dosage Frequency Signature Comments Components Source Medication Medication Date Date Medication? Clinician (SIG) Name Name apixaban 2021-10- No 2.5mg Q.5D Take 1 Metho di (ELIQUIS) 10-[address] 2.5 mg 10:03: 00:00 (2.5 mg Hospita tablet 30 :00 total) by l mouth 2 (two) times a day. apixaban 2021-10 Yes 5mg Q.5D Take 1 Methodi (ELIQUIS) 5 -07 tablet (5 st mg tablet 00:00: mg total) Hos nubia 00 by mouth 2 l (two) times a day. atorvastati 2021-10 Yes 10mg QD Take 10 mg Methodi n (LIPITOR) [address] 10 mg 18:12: every Hospita tablet 11 evening. l sucroferric 2021-10 Yes 500mg Q.[id number] Chew 500 Methodi oxyhydroxid 10-[id number] e 18:12: 3D (three) Hospita (Velphoro) 11 times a l 500 mg day with tablet,chew meals. able ondansetron 2021-10 Yes 4mg Q8H Take 4 mg M ethodi (ZOFRAN) [address] MG tablet 18:12: every [...] 40mg QD Take 40 mg Methodi e 10-27 11-[address] (PROTONIX) 16:58: 00:00 daily. Hosp naye 40 MG EC 50 :00 l tablet pantoprazol 2021-10 Yes 40mg Q.5D Take 1 Meth aiden e 10-27 tablet (40 st (PROTONIX) 00:00: mg total) Ho spita 40 MG EC 00 by mouth 2 l tablet (two) times a day. acetaminoph 2021- [place] [id number] 1{tbl} Q.5D Take 1 Methodi en-codeine 06-[address] (TYLENOL 00:00: 04:59 mouth 2 Hospi ta WITH 00 :00 (two) l CODEINE #3) times a 300-30 mg day for 10 per tablet days .chronic pain. acetaminoph 2021- [place] [id number] 1{tbl} Q.5D Take 1 Methodi en-codeine 06-[address] (TYLENOL 00:00: 00:00 mouth 2 Hospi ta WITH 00 :00 (two) l CODEINE #3) times a 300-30 mg day for 10 per tablet days .acute pain. methocarbam 2021- No 500mg Q.25D Take 500 Methodi oL 06-[address] (ROBAXIN) 18:56: 00:00 mouth 4 Hosp naye 500 MG 38 :00 (four) l tablet times a day. apixaban 2021-0 2021- No 2.5mg Q.5D Take 2.5 Met hodi (ELIQUIS) 5 06-[address] mg tablet 18:51: 00:00 mouth 2 Hosp naye 03 :00 (two) l times a day. sevelamer 2021-0 2021- No 1600mg Q.[id number] Take 1,600 Methodi (RENVELA) 06-[id number] 800 mg 18:50: 00:00 3D mouth 3 Hospita tablet 58 :00 (three) l times a day with meals. oxyCODONE 2021- [place] [id number] 5mg Q4H Take 5 mg M ethodi (ROXICODONE 06-[address] ) 5 MG 18:50: 00:00 every 4 Hospita immediate 30 :00 (four) l release hours as tablet needed for moderate pain .acute pain. tiZANidine 0 Yes 4mg Q.5D Take 1 Metho di (ZANAFLEX) 9- tablet (4 st 4 MG tablet 00:00: [...] vomiting or nausea. promethazin 2021-0 Yes 50mg Q.[id number] Take 1 Methodi e 7-28 [id number] tablet (50 st (PHENERGAN) 00:00: 3D mg total) H ospita 50 MG 00 by mouth 3 l tablet (three) times a day as needed for nausea or vomiting. diclofenac 2021-0 Yes 75mg Q.5D Take 1 Metho di (VOLTAREN) 7-26 tablet (75 st 75 MG EC 00:00: mg total) Hosp naye tablet 00 by mouth 2 l (two) times a day. fluconazole Yes 150mg Q7D Take 1 Met hodi (DIFLUCAN) 7-[address] 150 MG 00:00: (150 mg Hospita tablet 00 total) by l mouth once a week. On Sunday DULoxetine No 60mg QD Take 60 mg Methodi (CYMBALTA) 04-[address] 60 MG 18:01: 00:00 daily. Hospita capsule 54 :00 l gabapentin 2021- No 300mg Q.5D Take 300 M ethodi (NEURONTIN) 04-29-[address] 100 mg 18:01: 00:00 mouth 2 Hospita capsule 54 :00 (two) l times a day. allopurinoL No 100mg QD Take 100 Methodi (ZYLOPRIM) 04-29- mg by st 100 MG 18:01: 00:00 mouth Hospita tablet 54 :00 daily. l Zithromax Yes See [facility] 250 6-29 Instructio l mg oral 21:14: ns, Take 2 Herm connie tablet 00 tablets by mouth the first day then 1 tablet by mouth days 2-5. (Pt is on hemodialys is)., X 5 day, # 6 tab, 0 Refill(s), Pharmacy: [facility], 170.18, cm, 04/19/22 14:52:00 CDT, Height, 106.818, kg, 04/19/22 14... Zithromax Yes See [facility] 250 6-29 Instructio l mg oral 21:14: ns, Take 2 Herm connie tablet 00 tablets by mouth the first day then 1 tablet by mouth days 2-5. (Pt is on hemodialys is)., X 5 day, # 6 tab, 0 Refill(s), Pharmacy: [facility], 170.18, cm, 04/19/22 14:52:00 CDT, Height, 106.818, kg, 04/19/22 14... Zithromax Yes See [facility] 250 6-29 Instructio l mg oral 21:14: ns, Take 2 Herm connie tablet 00 tablets by mouth the first day then 1 tablet by mouth days 2-5. (Pt is on hemodialys is)., X 5 day, # 6 tab, 0 Refill(s), Pharmacy: [facility], 170.18, cm, 04/19/22 14:52:00 CDT, Height, 106.818, kg, 04/19/22 14... Zithromax 2022-[address] [facility] Instructio l mg oral 21:14: ns, Take 2 Herm connie tablet 00 tablets by mouth the first day then 1 tablet by mouth days 2-5. (Pt is on hemodialys is)., X 5 day, # 6 tab, 0 Refill(s), Pharmacy: [facility], 170.18, cm, 04/19/22 14:52:00 CDT, Height, 106.818, kg, 04/19/22 14... Velphoro 2022-0 Yes 500 mg, Memori a 6-29 CHEW, l 20:13: Daily, [place] 00 take with food, 0 Refill(s) Velphoro [...] 00 take with food, 0 Refill(s) sevelamer 2022-0 Yes 2,400 mg = Me moria carbonate 6-29 3 tab, PO, l 800 mg oral 20:12: TID-Meals, Denis tablet 00 # 270 tab, 0 Refill(s) sevelamer 2022-0 Yes 2,400 mg = Me moria carbonate 6-29 3 tab, PO, l 800 mg oral 20:12: TID-Meals, [place] tablet 00 # 270 tab, 0 Refill(s) sevelamer 2022-0 Yes 2,400 mg = Me moria carbonate 6-29 3 tab, PO, l 800 mg oral 20:12: TID-Meals, Denis tablet 00 # 270 tab, 0 Refill(s) sevelamer Yes 2,400 mg = Me moria carbonate 6-29 3 tab, PO, l 800 mg oral 20:12: TID-Meals, Denis tablet 00 # 270 tab, 0 Refill(s) pantoprazol 0 Yes 40 mg = 1 M emoria e 40 mg 6-29 tab, PO, l oral 20:11: Daily, 0 Denis enteric 00 Refill(s) coated tablet pantoprazol 0 Yes 40 mg = 1 M emoria e 40 mg 6-29 tab, PO, l oral 20:11: Daily, 0 Denis enteric 00 Refill(s) coated tablet pantoprazol 0 Yes 40 mg = 1 M emoria e 40 mg 6-29 tab, PO, l oral 20:11: Daily, 0 Denis enteric 00 Refill(s) coated tablet pantoprazol 0 Yes 40 mg = 1 M emoria e 40 mg 6-29 tab, PO, l oral 20:11: Daily, 0 Denis enteric 00 Refill(s) coated tablet oxyCODONE 5 Yes 5 mg = 1 Me moria mg oral 6-29 tab, PO, l tablet, 20:10: Q4H, PRN Vicente n immediate 00 Pain, prn, release 0 Refill(s) oxyCODONE 5 Yes 5 mg = 1 Me moria mg oral 6-29 tab, PO, l tablet, 20:10: Q4H, PRN Vicente n immediate 00 Pain, prn, release 0 Refill(s) oxyCODONE 5 0 Yes 5 mg = 1 Me moria mg oral 6-29 tab, PO, l tablet, 20:10: Q4H, PRN Vicente n immediate 00 Pain, prn, release 0 Refill(s) oxyCODONE 5 Yes 5 mg = 1 Me moria mg oral 6-29 tab, PO, l tablet, 20:10: Q4H, PRN Vicente n immediate 00 Pain, prn, release 0 Refill(s) ondansetron 2022-0 Yes 4 mg = 1 Me moria 4 mg oral 6-29 tab, PO, l tablet, 20:09: TID, PRN Vicente n disintegrat 00 Nausea / ing Vomiting, Dissolve tab under tongue, 0 Refill(s) ondansetron 2022-0 Yes 4 mg = 1 Me moria 4 mg oral 6-29 tab, PO, l tablet, 20:09: TID, PRN Vicente n disintegrat 00 Nausea / ing Vomiting, Dissolve tab under tongue, 0 Refill(s) ondansetron 2-0 Yes 4 mg = 1 Me moria 4 mg oral 6-29 tab, PO, l tablet, 20:09: TID, PRN Vicente n disintegrat 00 Nausea / ing Vomiting, Dissolve tab under tongue, 0 Refill(s) ondansetron 2-0 Yes 4 mg = 1 Me moria 4 mg oral 6-29 tab, PO, l tablet, 20:09: TID, PRN Vicente n disintegrat 00 Nausea / ing Vomiting, Dissolve tab under tongue, 0 Refill(s) Nitazoxanid 2-0 Yes 500 mg = 1 Memoria e 500 mg 6-29 tab, PO, l oral tablet 20:08: Q12H, 0 [facility] [place] 00 Refill(s) Nitazoxanid 2-0 Yes 500 mg = 1 Memoria e 500 mg 6-29 tab, PO, l oral tablet 20:08: Q12H, 0 [facility] [place] 00 Refill(s) Nitazoxanid 2-0 Yes 500 mg = 1 Memoria e 500 mg 6-29 tab, PO, l oral tablet 20:08: Q12H, 0 [facility] [place] 00 Refill(s) Nitazoxanid 2-0 Yes 500 mg = 1 Memoria e 500 mg 6-29 tab, PO, l oral tablet 20:08: Q12H, 0 [facility] 00 Refill(s) metoprolol 2022-0 Yes 25 mg = 1 Me moria tartrate 25 6-29 tab, PO, l mg oral 20:07: BID, 0 [place] tablet 00 Refill(s) metoprolol 2022-0 Yes 25 mg = 1 Me moria tartrate 25 6-29 tab, PO, l mg oral 20:07: BID, 0 [place] tablet 00 Refill(s) metoprolol 2021-0 Yes 25 mg = 1 Me moria tartrate 25 6-29 tab, PO, l mg oral 20:07: BID, 0 [place] tablet 00 Refill(s) metoprolol 2021-0 Yes 25 mg = 1 Me moria tartrate 25 6-29 tab, PO, l mg oral 20:07: BID, 0 [place] tablet 00 Refill(s) methocarbam 2-0 Yes 250 mg = Me moria ol 500 mg 6-29 0.5 tab, l oral tablet 20:05: PO, TID, 0 [place] 00 Refill(s) methocarbam 2-0 Yes 250 mg = Me moria ol 500 mg 6-29 0.5 tab, l oral tablet 20:05: PO, TID, 0 [place] 00 Refill(s) methocarbam 2021-0 Yes 250 mg = Me moria ol 500 mg 6-29 0.5 tab, l oral tablet 20:05: PO, TID, 0 [place] 00 Refill(s) methocarbam 2021-0 Yes 250 mg = Me moria ol 500 mg 6-29 0.5 tab, l oral tablet 20:05: PO, TID, 0 [place] 00 Refill(s) Alphagan P 2021-0 Yes 1 drp, Memor ia 0.1% 6- OPTH, Q12H l ophthalmic 20:04: [place] solution 00 folic acid 2021-0 Yes 1 mg, PO, Me moria 6-29 Daily, 0 l 20:04: Refill(s) [place] 00 Alphagan P 2021-0 Yes 1 drp, Memor ia 0.1% - OPTH, Q12H l ophthalmic 20:04: [place] solution 00 folic acid 2021-0 Yes 1 mg, PO, Me moria 6-29 Daily, 0 l 20:04: Refill(s) [place] 00 Alphagan P 2-0 Yes 1 drp, Memor ia 0.1% 6-29 OPTH, Q12H l ophthalmic 20:04: [place] solution 00 folic acid 2021-0 Yes 1 mg, PO, Me moria 6-29 Daily, 0 l 20:04: Refill(s) [place] 00 Alphagan P Yes 1 drp, Memor ia 0.1% 04-19 OPTH, Q12H l ophthalmic 20:04: [place] solution 00 folic acid Yes 1 mg, PO, Me moria 04-19 Daily, 0 l 20:04: Refill(s) [place] 00 Oxygen Yes 1 btl, Memoria - MISC, l 20:03: Daily, 2 [place] 00 liters, 0 Refill(s) Oxygen Yes 1 btl, Memoria - MISC, l 20:03: Daily, 2 [place] 00 liters, 0 Refill(s) Oxygen Yes 1 btl, Memoria - MISC, l 20:03: Daily, 2 [place] 00 liters, 0 Refill(s) Oxygen Yes 1 btl, Memoria - MISC, l 20:03: Daily, 2 Denis 00 liters, 0 Refill(s) Eliquis 2.5 Yes 2.5 mg, Mem oria mg oral 6-29 PO, Q12H, l tablet 20:02: tab, 0 [place] 00 Refill(s) Eliquis 2.5 Yes 2.5 mg, Mem oria mg oral 6-29 PO, Q12H, l tablet 20:02: tab, 0 [place] 00 Refill(s) Eliquis 2.5 Yes 2.5 mg, Mem oria mg oral 6-29 PO, Q12H, l tablet 20:02: tab, 0 [place] 00 Refill(s) Eliquis 2.5 Yes 2.5 mg, Mem oria mg oral 6-29 PO, Q12H, l tablet 20:02: tab, 0 [place] 00 Refill(s) doxycycline 2021- No 200mg Q.5D Take 200 [facility] (VIBRAMYCIN 6-26 06-[address] ) 100 MG 13:07: 00:00 mouth 2 Hospi ta capsule 01 :00 (two) l times a day. Take 200mg (x2 100mg capsules). Per patient started taking March 29, 2022 glucosam/ch 2021- No 1{tbl} Q.5D Take 1 M ethodi on-msm1/C/m 04-[address] roly/nelliew 13:07: 00:00 mouth 2 Hospi ta (OSTEO 01 :00 (two) l BI-FLEX times a TRIPLE day. STRENGTH ORAL) NON 2021- No 1{capsu QD Take 1 [facility] FORMULARY 04-16 le} capsule by st 13:07: 00:00 mouth Hospita 01 :00 nightly. l Patient takes young living probiotic with 17 billion active cultures folic acid 2021- No 1mg QD Take 1 Meth aiden (FOLVITE) 1 04-15 tablet (1 st MG tablet 00:00: 04:59 mg total) Ho spita 00 :00 by mouth l daily for 30 days. methocarbam No 250mg Q.[id number] Take 0.5 [facility] oL 04-[id number] (ROBAXIN) 00:00: 04:59 3D (250 [...] times a day for 7 [place] [id number] 5mg Q4H Take 1 Meth aiden (ROXICODONE [...] 5-16 tab, PO, l tablet 18:09: Bedtime, [place] 00 PRN NEEDED FOR MUSCLE SPASM, # 15 tab, 0 Refill(s), Pharmacy: [facility] #[id number], 165.1, cm, 10/17/21 15:23:00 FOOD SERVICE COORDINATOR, Height, 107.301, kg, 10/17/21 15:23:00 FOOD SERVICE COORDINATOR, Weight tizanidine 2-0 Yes 4 mg = 1 Mem oria 4 mg oral 5-16 tab, PO, l tablet 18:09: Bedtime, [place] 00 PRN NEEDED FOR MUSCLE SPASM, # 15 tab, 0 Refill(s), Pharmacy: [facility] ST[facility] #[id number], 165.1, cm, 10/17/21 15:23:00 FOOD SERVICE COORDINATOR, Height, 107.301, kg, 10/17/21 15:23:00 FOOD SERVICE COORDINATOR, Weight tizanidine 2021-0 Yes 4 mg = 1 Mem oria 4 mg oral 5-16 tab, PO, l tablet 18:09: Bedtime, [place] 00 PRN NEEDED FOR MUSCLE SPASM, # 15 tab, 0 Refill(s), [id number], 165.1, cm, 10/17/21 15:23:00 FOOD SERVICE COORDINATOR, Height, 107.301, kg, 10/17/21 15:23:00 FOOD SERVICE COORDINATOR, Weight tizanidine 2021-0 Yes 4 mg = 1 Mem oria 4 mg oral 5-16 tab, PO, l tablet 18:09: Bedtime, [place] 00 PRN NEEDED FOR MUSCLE SPASM, # 15 tab, 0 Refill(s), Pharmacy: [facility] STORE #[id number], 165.1, cm, 10/17/21 15:23:00 FOOD SERVICE COORDINATOR, Height, 107.301, kg, 10/17/21 15:23:00 FOOD SERVICE COORDINATOR, Weight nitrofurant 2021- No 100mg Q.5D Take 1 Me thodi oin, 3- 03-[address] macrocrysta 00:00: 04:59 (100 mg Ho spita l-monohydra 00 :00 total) by l te, mouth 2 (MACROBID) (two) 100 MG times a capsule day for 3 days. lidocaine 2021- No 1{patch Q24H Place 1 M ethodi (LIDODERM) [id number] } patch on st 5 % 00:00: 04:59 the skin Hospita 00 :00 in the l morning for 30 days. Remove & Discard patch within 12 hours or as directed by . traMADoL 2021-0 2021- [place] 265[address] 50mg Q.03526174 Take 1 [facility] (ULTRAM) 50 3-09 03-20 [id number] tablet (50 st mg tablet 00:00: 04:59 3D mg total) Ho spita 00 :00 by mouth l as needed in the morning and 1 tablet (50 mg total) as needed at noon and 1 tablet (50 mg total) as needed in the evening for moderate pain. Do all this for up to 10 days.acute pain. metoprolol 2021-0 Yes 25mg Q.5D Take 25 mg M ethodi tartrate 2-[address] (LOPRESSOR) 00:00: (two) Hospi ta 25 mg 00 times a l tablet day. Ondansetron 2021-0 Yes 4 mg = 1 Me moria 4 MG Oral 1-07 tab, PO, l Tablet 22:01: BID, X 5 [place] [Zofran] day, # 10 tab, 0 Refill(s), Pharmacy: [facility]ORE #[id number], 165.1, cm, 10/17/21 15:23:00 FOOD SERVICE COORDINATOR, Height, 107.301, kg, 10/17/21 15:23:00 FOOD SERVICE COORDINATOR, Weight Ondansetron 2021-0 Yes 4 mg = 1 Me moria 4 MG Oral 1-07 tab, PO, l Tablet 22:01: BID, X 5 [place] [Zofran] day, # 10 tab, 0 Refill(s), Pharmacy: [facility]ORE #[id number], 165.1, cm, 10/17/21 15:23:00 FOOD SERVICE COORDINATOR, Height, 107.301, kg, 10/17/21 15:23:00 FOOD SERVICE COORDINATOR, Weight Ondansetron 2-0 Yes 4 mg = 1 Me moria 4 MG Oral 1-07 tab, PO, l Tablet 22:01: BID, X 5 Denis [Zofran] day, # 10 tab, 0 Refill(s), Pharmacy: [facility] STORE #[id number], 165.1, cm, 10/17/21 15:23:00 FOOD SERVICE COORDINATOR, Height, 107.301, kg, 10/17/21 15:23:00 FOOD SERVICE COORDINATOR, Weight Ondansetron Yes 4 mg = 1 Me moria 4 MG Oral 1-07 tab, PO, l Tablet 22:01: BID, X 5 [place] [Zofran] 00 day, # 10 tab, 0 Refill(s), Pharmacy: [facility] STORE #[id number], 165.1, cm, 10/17/21 15:23:00 FOOD SERVICE COORDINATOR, Height, 107.301, kg, 10/17/21 15:23:00 FOOD SERVICE COORDINATOR, Weight atorvastati 2020-10 Yes 10 mg = 1 M emoria n 10 mg 2-27 tab, PO, l oral tablet 21:45: Bedtime, # [place] 00 90 tab, 0 Refill(s), Pharmacy: [facility] STORE #[id number], 165.1, cm, 10/17/21 15:23:00 FOOD SERVICE COORDINATOR, Height, 107.301, kg, 10/17/21 15:23:00 FOOD SERVICE COORDINATOR, Weight atorvastati 2020-10 Yes 10 mg = 1 M emoria n 10 mg 2-27 tab, PO, l oral tablet 21:45: Bedtime, # [place] 00 90 tab, 0 Refill(s), [id number], 165.1, cm, 10/17/21 15:23:00 FOOD SERVICE COORDINATOR, Height, 107.301, kg, 10/17/21 15:23:00 FOOD SERVICE COORDINATOR, Weight atorvastati 2020-10 Yes 10 mg = 1 M emoria n 10 mg 2-27 tab, PO, l oral tablet 21:45: Bedtime, # [place] 00 90 tab, 0 Refill(s), Pharmacy: [facility] STORE #[id number], 165.1, cm, 10/17/21 15:23:00 FOOD SERVICE COORDINATOR, Height, 107.301, kg, 10/17/21 15:23:00 FOOD SERVICE COORDINATOR, Weight atorvastati 2020-10 Yes 10 mg = 1 M emoria n 10 mg 2-27 tab, PO, l oral tablet 21:45: Bedtime, # [place] 00 90 tab, 0 Refill(s), [id number], 165.1, cm, 10/17/21 15:23:00 FOOD SERVICE COORDINATOR, Height, 107.301, kg, 10/17/21 15:23:00 FOOD SERVICE COORDINATOR, Weight tizanidine 2020-10 Yes 4 mg = 1 Mem oria 4 mg oral 2-27 tab, PO, l tablet 21:40: Bedtime, [place] 00 PRN for muscle spasm, # 30 tab, 0 Refill(s), Pharmacy: [facility]ORE #[id number], 165.1, cm, 10/17/21 15:23:00 FOOD SERVICE COORDINATOR, Height, 107.301, kg, 10/17/21 15:23:00 FOOD SERVICE COORDINATOR, Weight Acetaminoph 2020-10 Yes 1 tab, PO, Memoria en 325 MG / 2-27 Q12H, PRN l tramadol 21:40: for pain, Herm connie hydrochlori 00 X 15 day, de 37.5 MG # 30 tab, Oral Tablet 0 [Ultracet] Refill(s), Pharmacy: [facility]ORE #[id number], 165.1, cm, 10/17/21 15:23:00 FOOD SERVICE COORDINATOR, Height, 107.301, kg, 10/17/21 15:23:00 FOOD SERVICE COORDINATOR, Weight tizanidine 2020-10 Yes 4 mg = 1 Mem oria 4 mg oral 2-27 tab, PO, l tablet 21:40: Bedtime, [place] 00 PRN for muscle spasm, # 30 tab, 0 Refill(s), Pharmacy: [facility]ORE #[id number], 165.1, cm, 10/17/21 15:23:00 FOOD SERVICE COORDINATOR, Height, 107.301, kg, 10/17/21 15:23:00 FOOD SERVICE COORDINATOR, Weight Acetaminoph 2020-10 Yes 1 tab, PO, Memoria en 325 MG / 2-27 Q12H, PRN l tramadol 21:40: for pain, Herm connie hydrochlori 00 X 15 day, de 37.5 MG # 30 tab, Oral Tablet 0 [Ultracet] Refill(s), Pharmacy: [facility]ORE #[id number], 165.1, cm, 10/17/21 15:23:00 FOOD SERVICE COORDINATOR, Height, 107.301, kg, 10/17/21 15:23:00 FOOD SERVICE COORDINATOR, Weight tizanidine 2020-10 Yes 4 mg = 1 Mem oria 4 mg oral 2-27 tab, PO, l tablet 21:40: Bedtime, [place] 00 PRN for muscle spasm, # 30 tab, 0 Refill(s), [facility][id number], 165.1, cm, 10/17/21 15:23:00 FOOD SERVICE COORDINATOR, Height, 107.301, kg, 10/17/21 15:23:00 FOOD SERVICE COORDINATOR, Weight Acetaminoph 2020-10 Yes 1 tab, PO, Memoria en 325 MG / 2-27 Q12H, PRN l tramadol 21:40: for pain, Herm connie hydrochlori 00 X 15 day, de 37.5 MG # 30 tab, Oral Tablet 0 [Ultracet] Refill(s), [facility][id number], 165.1, cm, 10/17/21 15:23:00 FOOD SERVICE COORDINATOR, Height, 107.301, kg, 10/17/21 15:23:00 FOOD SERVICE COORDINATOR, Weight tizanidine 2020-10 Yes 4 mg = 1 Mem oria 4 mg oral 2-27 tab, PO, l tablet 21:40: Bedtime, [place] PRN for muscle spasm, # 30 tab, 0 Refill(s), [facility] #[id number], 165.1, cm, 10/17/21 15:23:00 FOOD SERVICE COORDINATOR, Height, 107.301, kg, 10/17/21 15:23:00 FOOD SERVICE COORDINATOR, Weight Acetaminoph 2020-10 Yes 1 tab, PO, Memoria en 325 MG / 2-27 Q12H, PRN l tramadol 21:40: for pain, Herm connie hydrochlori 00 X 15 day, de 37.5 MG # 30 tab, Oral Tablet 0 [Ultracet] Refill(s), [facility][id number], 165.1, cm, 10/17/21 15:23:00 FOOD SERVICE COORDINATOR, Height, 107.301, kg, 10/17/21 15:23:00 FOOD SERVICE COORDINATOR, Weight sevelamer 2020-10 Yes 1,600 mg = [...] [facility] ST[facility] #[id number], 165.1, cm, 09/09/21 14:08:00 FOOD SERVICE COORDINATOR, Height, 136.42, kg, 09/09/21 14:08:00 FOOD SERVICE COORDINATOR, Weight Mupirocin 2020-10 Yes 1 appl, Memor ia 0.02 MG/MG 1-22 TOP, TID, l Topical 23:21: X 5 day, # Herm connie Ointment 00 22 gm, 0 Refill(s), [id number], 165.1, cm, 09/09/21 14:08:00 FOOD SERVICE COORDINATOR, Height, 136.42, kg, 09/09/21 14:08:00 FOOD SERVICE COORDINATOR, Weight Mupirocin 2020-10 Yes 1 appl, Memor ia 0.02 MG/MG 1-22 TOP, TID, l Topical 23:21: X 5 day, # Herm connie Ointment 00 22 gm, 0 Refill(s), [facility][id number], 165.1, cm, 09/09/21 14:08:00 FOOD SERVICE COORDINATOR, Height, 136.42, kg, 09/09/21 14:08:00 FOOD SERVICE COORDINATOR, Weight Mupirocin 2020-10 Yes 1 appl, Memor ia 0.02 MG/MG 1-22 TOP, TID, l Topical 23:21: X 5 day, # Herm connie Ointment 00 22 gm, 0 Refill(s), Pharmacy: [facility] #[id number], 165.1, cm, 09/09/21 14:08:00 FOOD SERVICE COORDINATOR, Height, 136.42, kg, 09/09/21 14:08:00 FOOD SERVICE COORDINATOR, Weight bumetanide 2020-10 Yes 2 mg = 1 Mem oria 2 mg oral 1-19 tab, PO, l tablet 21:11: Daily, # [place] 00 30 tab, 0 Refill(s) bumetanide 2020-10 Yes 2 mg = 1 Mem oria 2 mg oral 1-19 tab, PO, l tablet 21:11: Daily, # [place] 00 30 tab, 0 Refill(s) bumetanide 2020-10 Yes 2 mg = 1 Mem oria 2 mg oral 1-19 tab, PO, l tablet 21:11: Daily, # [place] 00 30 tab, 0 Refill(s) bumetanide 2020-10 [...] mg = 1 Memoria 100 mg oral -19 tab, PO, l tablet 21:10: BID, # 60 Vicente n 00 tab, 0 Refill(s) gabapentin 2020-10 Yes 200 mg = 2 M emoria 100 MG Oral -19 cap, PO, l Capsule 21:10: Bedtime, 0 Herm connie 00 Refill(s) midodrine 2020-10 Yes 10mg Q.[id number] Take 10 mg [facility] (PROAMATINE -13 [id number] by mouth [address] [facility] ) 10 MG 00:00: 3D (three) Hospita tablet 00 times a l day. BUMETanide 2020-10 Yes 2mg QD Take 2 mg Me thodi (BUMEX) 2 -[address] MG tablet 00:00: every Hospita 00 morning. l digOXIN 2020-10 Yes 125ug Q.92919552 Take 125 [facility] (LANOXIN) -[id number] 125 mcg 00:00: 3W mouth 3 Hospita (0.125 mg) 00 (three) l tablet times a week. On dialysis days, , Sunday carvediloL 2020-10- No [facility] (COREG) 1 02-28 st 3.125 MG 00:00: 00:00 Hospita tablet 00 :00 l ipratropium 2020-10- No [id number] .5mg Q.25D Take 2.5 [facility] (ATROVENT) 0-05 02-28 mL (0.[address] 0.02 % 00:00: 00:00 [facility]00 nebulizati l solution on 4 (four) times a day. QUEtiapine Yes 1 tablet, Me moria 50 mg oral 3-30 once a l tablet 13:55: day, 0 [place] 00 Refill(s) torsemide Yes 1 tablet, Mem oria 20 mg oral 3-30 twice a l tablet 13:55: day, 0 [place] 00 Refill(s) QUEtiapine Yes 1 tablet, Me moria 50 mg oral 3-30 once a l tablet 13:55: day, 0 [place] 00 Refill(s) torsemide 2021-0 Yes 1 tablet, Mem oria 20 mg oral 3-30 twice a l tablet 13:55: day, 0 [place] 00 Refill(s) QUEtiapine 2020-0 Yes 1 tablet, Me moria 50 mg oral 3-30 once a l tablet 13:55: day, 0 [place] 00 Refill(s) torsemide 2020-0 Yes 1 tablet, [...] a l mEq oral 13:54: day, 0 [place] tablet, 00 Refill(s) extended release (KCL) potassium 2020-0 Yes 1 tablet, Mem oria chloride 20 3-30 once a l mEq oral 13:54: day, 0 [place] tablet, 00 Refill(s) extended release (KCL) potassium 2020-0 Yes 1 tablet, Mem oria chloride 20 3-30 once a l mEq oral 13:54: day, 0 [place] tablet, 00 Refill(s) extended release (KCL) potassium 2020-0 Yes 1 tablet, Mem oria chloride 20 3-30 once a l mEq oral 13:54: day, 0 [place] tablet, 00 Refill(s) extended release (KCL) allopurinol [...] day, 0 Herm connie 00 Refill(s) DULoxetine 0 Yes 1 capsule, M emoria 60 mg oral 3-30 once a l delayed 13:53: day, 0 [place] release 00 Refill(s) capsule apixaban 5 Yes 1 tablet, Me moria MG Oral 3-30 twice a l Tablet 13:53: day, 0 [place] [Eliquis] 00 Refill(s) gabapentin Yes 1 capsule, M emoria 300 MG Oral 3-30 twice a l Capsule 13:53: day, 0 [place] 00 Refill(s) metoprolol Yes 1 tablet, Me moria tartrate 50 3-30 Twice a l mg oral 13:53: day, 0 Denis tablet 00 Refill(s) midodrine 5 Yes 1 tablet, M emoria mg oral 3-30 twice a l tablet 13:53: day, 0 [place] 00 Refill(s) allopurinol Yes 1/2 Memori a 300 mg oral 3-30 tablet, l tablet 13:53: once a [place] 00 day, 0 Refill(s) carvedilol Yes 1 [...] 0 Denis tablet 00 Refill(s) midodrine 5 2021-0 Yes 1 tablet, M emoria mg oral 3-30 twice a l tablet 13:53: day, 0 [place] 00 Refill(s) allopurinol 2020-0 Yes 1/2 Memori a 300 mg oral 3-30 tablet, l tablet 13:53: once a [place] 00 day, 0 Refill(s) carvedilol 2020-0 Yes [...] once a l delayed 13:53: day, 0 [place] release 00 Refill(s) capsule apixaban 5 0 Yes 1 tablet, Me moria MG Oral 3-30 twice a l Tablet 13:53: day, 0 [place] [Eliquis] 00 Refill(s) gabapentin 2020-0 Yes 1 capsule, M emoria 300 MG Oral 3-30 twice a l Capsule 13:53: day, 0 [place] 00 Refill(s) metoprolol 2020-0 Yes 1 tablet, Me moria tartrate 50 3-30 Twice a l mg oral 13:53: day, 0 Denis tablet 00 Refill(s) midodrine 5 2020-0 Yes 1 tablet, M emoria mg oral 3-30 twice a l tablet 13:53: day, 0 [place] 00 Refill(s) allopurinol 2020-0 Yes 1/2 Memori a 300 mg oral 3-30 tablet, l tablet 13:53: once a [place] 00 day, 0 Refill(s) carvedilol 2020-0 Yes [...] once a l delayed 13:53: day, 0 [place] release 00 Refill(s) capsule apixaban 5 Yes 1 tablet, Me moria MG Oral 3-30 twice a l Tablet 13:53: day, 0 [place] [Eliquis] 00 Refill(s) gabapentin Yes 1 capsule, M emoria 300 MG Oral 3-30 twice a l Capsule 13:53: day, 0 [place] 00 Refill(s) metoprolol Yes 1 tablet, Me moria tartrate 50 3-30 Twice a l mg oral 13:53: day, 0 [place] tablet 00 Refill(s) midodrine 5 Yes 1 tablet, M emoria mg oral 3-30 twice a l tablet 13:53: day, 0 [place] 00 Refill(s) DULoxetine 2019-10 Yes 60 mg [...] DAILY, # 66 gm, 1 Refill(s), [id number], 170.18, cm, 12/16/19 14:42:00 FOOD SERVICE COORDINATOR, Height, 164.318, kg, 12/16/19 14:42:00 FOOD SERVICE COORDINATOR, Weight Mupirocin 2019-10 Yes See Memoria 0.02 MG/MG 0-13 Instructio l Topical 15:44: ns, APPLY Karen nn Ointment 00 EXTERNALLY TO THE AFFECTED AREA TWICE DAILY, # 66 gm, 1 Refill(s), Pharmacy: [facility] STORE #[id number], 170.18, cm, 12/16/19 14:42:00 FOOD SERVICE COORDINATOR, Height, 164.318, kg, 12/16/19 14:42:00 FOOD SERVICE COORDINATOR, Weight Mupirocin 2019-10 Yes See Memoria 0.02 MG/MG 0-13 Instructio l Topical 15:44: ns, APPLY Karen nn Ointment 00 EXTERNALLY TO THE AFFECTED AREA TWICE DAILY, # 66 gm, 1 Refill(s), Pharmacy: [facility] STORE #[id number], 170.18, cm, 12/16/19 14:42:00 FOOD SERVICE COORDINATOR, Height, 164.318, kg, 12/16/19 14:42:00 FOOD SERVICE COORDINATOR, Weight Mupirocin 2020-1 Yes See Memoria 0.02 MG/MG 0-13 Instructio l Topical 15:44: ns, APPLY Karen nn Ointment 00 EXTERNALLY TO THE AFFECTED AREA TWICE DAILY, # 66 gm, 1 Refill(s), Pharmacy: [facility] STORE #[id number], 170.18, cm, 12/16/19 14:42:00 FOOD SERVICE COORDINATOR, Height, 164.318, kg, 12/16/19 14:42:00 FOOD SERVICE COORDINATOR, Weight Nitrofurant 2020-0 Yes 100 mg = 1 Memoria oin 100 MG 8-09 cap, PO, l Oral 17:57: BID, X 10 Denis Capsule 00 day, # 20 [Macrobid] cap, 0 Refill(s), Pharmacy: [facility] STORE #[id number], 170.18, cm, 12/16/19 14:42:00 FOOD SERVICE COORDINATOR, Height, 164.318, kg, 12/16/19 14:42:00 FOOD SERVICE COORDINATOR, Weight Nitrofurant 2020-0 Yes 100 mg = 1 Memoria oin 100 MG 8-09 cap, PO, l Oral 17:57: BID, X 10 Denis Capsule 00 day, # 20 [Macrobid] cap, 0 Refill(s), Pharmacy: [facility] STORE #[id number], 170.18, cm, 12/16/19 14:42:00 FOOD SERVICE COORDINATOR, Height, 164.318, kg, 12/16/19 14:42:00 FOOD SERVICE COORDINATOR, Weight Nitrofurant 2020-0 Yes 100 mg = 1 Memoria oin 100 MG 8-09 cap, PO, l Oral 17:57: BID, X 10 [place] Capsule 00 day, # 20 [Macrobid] cap, 0 Refill(s), [facility][id number], 170.18, cm, 12/16/19 14:42:00 FOOD SERVICE COORDINATOR, Height, 164.318, kg, 12/16/19 14:42:00 FOOD SERVICE COORDINATOR, Weight Nitrofurant 2020-0 Yes 100 mg = 1 Memoria oin 100 MG 8-09 cap, PO, l Oral 17:57: BID, X 10 Denis Capsule 00 day, # 20 [Macrobid] cap, 0 Refill(s), Pharmacy: [facility] STORE #[id number], 170.18, cm, 12/16/19 14:42:00 FOOD SERVICE COORDINATOR, Height, 164.318, kg, 12/16/19 14:42:00 FOOD SERVICE COORDINATOR, Weight lisinopril 2020-0 Yes 2.5 mg = 1 M emoria 2.5 mg oral 6-04 tab, PO, l tablet 23:26: Daily, # [place] 00 30 tab, 2 Refill(s), called to pharmacy lisinopril 2020-0 Yes 2.5 mg = 1 M emoria 2.5 mg oral 6-04 tab, PO, l tablet 23:26: Daily, # Denis 00 30 tab, 2 Refill(s), called to pharmacy lisinopril 2020-0 Yes 2.5 mg = 1 M emoria 2.5 mg oral 6-04 tab, PO, l tablet 23:26: Daily, # [place] 00 30 tab, 2 Refill(s), called to pharmacy lisinopril 2020-0 Yes 2.5 mg = 1 M emoria 2.5 mg oral 6-04 tab, PO, l tablet 23:26: Daily, # Denis 00 30 tab, 2 Refill(s), called to pharmacy calcitriol 2020-0 Yes = 1 cap, Mem oria 0.25 mcg 5-20 PO, Daily, l oral 12:18: # 90 cap, Denis capsule 00 1 Refill(s), [id number] calcitriol 2020-0 Yes = 1 cap, Mem oria 0.25 mcg 5-20 PO, Daily, l oral 12:18: # 90 cap, [place] capsule 00 1 Refill(s), [id number] calcitriol 2020-0 Yes = 1 cap, Mem oria 0.25 mcg 5-20 PO, Daily, l oral 12:18: # 90 cap, [place] capsule 00 1 Refill(s), Pharmacy: [facility] #[id number] calcitriol 2020-0 Yes = 1 cap, Mem oria 0.25 mcg 5-20 PO, Daily, l oral 12:18: # 90 cap, [place] capsule 00 1 Refill(s), Pharmacy: [facility] [id number] calcitriol 2020-0 Yes = 1 cap, Mem oria 0.25 mcg 4-16 PO, Daily, l oral 16:37: # 90 [place] capsule 47 unknown unit, Pharmacy: [facility] STORE #[id number] calcitriol 2020-0 Yes = 1 cap, Mem oria 0.25 mcg 4-16 PO, Daily, l oral 16:37: # 90 Denis capsule 47 unknown unit, Pharmacy: [facility] [employer] [id number] calcitriol 2020-0 Yes = 1 cap, Mem oria 0.25 mcg 4-16 PO, Daily, l oral 16:37: # 90 [place] capsule 47 unknown unit, Pharmacy: [facility] [employer] [id number] calcitriol 2020-0 Yes = 1 cap, Mem oria 0.25 mcg 4-16 PO, Daily, l oral 16:37: # 90 [place] capsule 47 unknown unit, [id number] Furosemide 2020-0 Yes = 1 tab, Mem oria 40 MG Oral 4-13 PO, Every l Tablet 20:06: Other Day, Karen nn 19 # 45 tab, Pharmacy: [facility] [id number] Furosemide 2020-0 Yes = 1 tab, Mem oria 40 MG Oral 4-13 PO, Every l Tablet 20:06: Other Day, Karen nn 19 # 45 tab, Pharmacy: [facility] [facility] #[id number] Furosemide 2020-0 Yes = 1 tab, Mem oria 40 MG Oral 4-13 PO, Every l Tablet 20:06: Other Day, Karen nn 19 # 45 tab, Pharmacy: [facility] STORE #[id number] Furosemide 2020-0 Yes = 1 tab, Mem oria 40 MG Oral 4-13 PO, Every l Tablet 20:06: Other Day, Karen nn 19 # 45 tab, Pharmacy: [facility] STORE #[id number] prednisolon 2020-0 Yes 1 drop in M [...] 4-10 right eye, l Ophthalmic 20:53: once [place] Solution 00 daily, 0 [Prolensa] Refill(s) prednisolon 2020-0 Yes 1 drop in M emoria e acetate 4-10 each eye, l 10 MG/ML 20:53: once Denis Ophthalmic 00 daily, 0 Suspension Refill(s) bromfenac 2020-0 Yes 1 drop in Mem oria 0.7 MG/ML 4-10 right eye, l Ophthalmic 20:53: once [place] Solution 00 daily, 0 [Prolensa] Refill(s) prednisolon [...] Karen robb 34 # 45 tab, [id number] Furosemide 2020-0 Yes = 1 tab, Mem oria 40 MG Oral 1-23 PO, Every l Tablet 15:13: Other Day, Karen robb 34 # 45 tab, [id number] Furosemide 2020-0 Yes = 1 tab, Mem oria 40 MG Oral 1-23 PO, Every l Tablet 15:13: Other Day, Karen robb 34 # 45 tab, Pharmacy: [facility] STORE #[id number] Furosemide 2020-0 Yes = 1 tab, Mem oria 40 MG Oral 1-23 PO, Every l Tablet 15:13: Other Day, Karen robb 34 # 45 tab, Pharmacy: [facility] STORE #[id number] Mupirocin 2018-10 Yes See Memoria 0.02 MG/MG 2-27 Instructio l Topical 19:11: ns, # 66 Vicente n Ointment 15 gm, APPLY EXTERNALLY TO THE AFFECTED AREA TWICE DAILY, Pharmacy: [facility] [id number] Mupirocin 2018-10 Yes See Memoria 0.02 MG/MG 2-27 Instructio l Topical 19:11: ns, # 66 Vicente n Ointment 15 gm, APPLY EXTERNALLY TO THE AFFECTED AREA TWICE DAILY, Pharmacy: [facility] [facility] [place][id number] Mupirocin 2018-10 Yes See Memoria 0.02 MG/MG 2-27 Instructio l Topical 19:11: ns, # 66 Vicente n Ointment 15 gm, APPLY EXTERNALLY TO THE AFFECTED AREA TWICE DAILY, Pharmacy: [facility] [facility] [place][id number] Mupirocin 2018-10 Yes See Memoria 0.02 MG/MG 2-27 Instructio l Topical 19:11: ns, # 66 Vicente n Ointment 15 gm, APPLY EXTERNALLY TO THE AFFECTED AREA TWICE DAILY, Pharmacy: [facility] [place][id number] Nitrofurant 2018-10 Yes 100 mg = 1 Memoria oin 100 MG 2-13 cap, PO, l Oral 01:44: BID, X 5 Denis Capsule 00 day, # 10 [[place] cap, 0 n] Refill(s), Pharmacy: [facility] [facility] [place][id number] Nitrofurant 2018-10 Yes 100 mg = 1 Memoria oin 100 MG 2-13 cap, PO, l Oral 01:44: BID, X 5 Denis Capsule 00 day, # 10 [[place] cap, 0 n] Refill(s), Pharmacy: [facility] STORE #[id number] Nitrofurant 2018-10 Yes 100 mg = 1 Memoria oin 100 MG 2-13 cap, PO, l Oral 01:44: BID, X 5 Denis Capsule 00 day, # 10 [[place] cap, 0 n] Refill(s), Pharmacy: [facility] STORE #[id number] Nitrofurant 2018-10 Yes 100 mg = 1 Memoria oin 100 MG 2-13 cap, PO, l Oral 01:44: BID, X 5 [place] Capsule 00 day, # 10 [[place] cap, 0 n] Refill(s), Pharmacy: [facility] #[id number] apixaban 5 2018-10 Yes 5 mg, PO, [...] ermann Bitartrate 00 5 MG Oral Tablet [[place] 5/325] apixaban 2018-10 Yes 5 mg, PO, [...] ermann Bitartrate 00 5 MG Oral Tablet [[place] 5/325] apixaban 5 2018-10 Yes 5 mg, PO, Me moria MG Oral 0-25 Q12H, 0 l Tablet 15:07: Refill(s) Vicente davis [Eliquis] 00 metoprolol 2018-10 Yes 50 mg [...] ermann Bitartrate 00 5 MG Oral Tablet [[place] 5/325] apixaban 5 2018-10 Yes 5 mg, PO, Me moria MG Oral 0-25 Q12H, 0 l Tablet 15:07: Refill(s) Vicente davis [Eliquis] 00 metoprolol 2018-10 Yes 50 mg [...] ermann Bitartrate 00 5 MG Oral Tablet [[place] 5/325] calcitriol 2018-10 Yes = 1 cap, Mem oria 0.25 mcg 0-11 PO, Daily, l oral 21:10: # 90 [place] capsule 30 unknown unit, Pharmacy: [facility] STORE #[id number] calcitriol 2018-10 Yes = 1 cap, Mem oria 0.25 mcg 0-11 PO, Daily, l oral 21:10: # 90 Denis capsule 30 unknown unit, Pharmacy: [facility] STORE #[id number] calcitriol 2018-10 Yes = 1 cap, Mem oria 0.25 mcg 0-11 PO, Daily, l oral 21:10: # 90 Denis capsule 30 unknown unit, Pharmacy: [facility] [facility] [place][id number] calcitriol 2018-10 Yes = 1 cap, Mem oria 0.25 mcg 0-11 PO, Daily, l oral 21:10: # 90 Denis capsule 30 unknown unit, Pharmacy: [facility] [facility] [place][id number] gabapentin Yes 300 mg = 1 M emoria 300 MG Oral 9-27 cap, PO, l Capsule 20:54: BID, # 180 Herm connie 00 cap, 3 Refill(s), called to pharmacy gabapentin Yes 300 mg = 1 M emoria 300 MG Oral 9-27 cap, PO, l Capsule 20:54: BID, # 180 Herm connie 00 cap, 3 Refill(s), called to pharmacy gabapentin 2019- Yes 300 mg = 1 M emoria 300 MG Oral 9-27 cap, PO, l Capsule 20:54: BID, # 180 Herm connie 00 cap, 3 Refill(s), called to pharmacy gabapentin 2019- Yes 300 mg = 1 M emoria 300 MG Oral 9-27 cap, PO, l Capsule 20:54: BID, # 180 Herm connie 00 cap, 3 Refill(s), called to pharmacy allopurinol 2019- Yes = 1 tab, Me moria 300 mg oral 8-17 PO, Daily, l tablet 02:39: # 90 tab, Vicente n 31 [id number] allopurinol Yes = 1 tab, Me moria 300 mg oral 8-17 PO, Daily, l tablet 02:39: # 90 tab, Vicente n 31 Pharmacy: [facility] STORE #[id number] allopurinol 2019-0 Yes = 1 tab, Me moria 300 mg oral 8-17 PO, Daily, l tablet 02:39: # 90 tab, Vicente n 31 Pharmacy: [facility] STORE #[id number] allopurinol 2019-0 Yes = 1 tab, Me moria 300 mg oral 8-17 PO, Daily, l tablet 02:39: # 90 tab, Vicente n 31 Pharmacy: [facility] STORE #[id number] QUEtiapine 2019-0 Yes 50 mg = 1 Me moria 50 mg oral 6-06 tab, PO, l tablet 15:28: Bedtime, # Karen nn 00 30 tab, 1 Refill(s) QUEtiapine 2019-0 Yes 50 mg = 1 Me moria 50 mg oral 6-06 tab, PO, l tablet 15:28: Bedtime, # Karen nn 00 30 tab, 1 Refill(s) QUEtiapine 2019-0 Yes 50 mg = 1 Me moria 50 mg oral 6-06 tab, PO, l tablet 15:28: Bedtime, # Karen nn 00 30 tab, 1 Refill(s) QUEtiapine 2019-0 Yes 50 mg = 1 Me moria 50 mg oral 6-06 tab, PO, l tablet 15:28: Bedtime, # Karen nn 00 30 tab, 1 Refill(s) eletriptan 2019-0 Yes 40 mg = 1 Me moria 40 mg oral 6-06 tab, PO, l tablet 15:26: Daily, PRN Karen nn 00 for migraine headache, may repeat dose once in 2 hours, # 6 tab, 0 Refill(s) eletriptan 2019-0 Yes 40 mg = 1 Me moria 40 mg oral 6-06 tab, PO, l tablet 15:26: Daily, PRN Karen nn 00 for migraine headache, may repeat dose once in 2 hours, # 6 tab, 0 Refill(s) eletriptan 2019-0 Yes 40 mg = 1 Me moria [...] BEDTIME, # 90 tab, 1 Refill(s), Pharmacy: [facility] [place] [address] atorvastati Yes See Memori a n 40 mg 3-14 Instructio l oral tablet 15:07: ns, TAKE 1 [place] 35 TABLET BY MOUTH EVERY NIGHT AT BEDTIME, # 90 tab, 1 Refill(s), Pharmacy: [facility] [place] [address] atorvastati Yes See Memori a n 40 mg 3-14 Instructio l oral tablet 15:07: ns, TAKE 1 Denis 35 TABLET BY MOUTH EVERY NIGHT AT BEDTIME, # 90 tab, 1 Refill(s), Pharmacy: [facility] [place] [address] atorvastati Yes See Memori a n 40 mg 3-14 Instructio l oral tablet 15:07: ns, TAKE 1 Denis 35 TABLET BY MOUTH EVERY NIGHT AT BEDTIME, # 90 tab, 1 Refill(s), Pharmacy: [facility] [place] [address] amLODIPine Yes See Memoria 5 mg oral 3-14 Instructio l tablet 15:07: ns, TAKE 1 Karen nn 33 TABLET BY MOUTH EVERY DAY, # 90 tab, 1 Refill(s), Pharmacy: [facility] [place] [address] amLODIPine Yes See Memoria 5 mg oral 3-14 Instructio l tablet 15:07: ns, TAKE 1 Karen nn 33 TABLET BY MOUTH EVERY DAY, # 90 tab, 1 Refill(s), Pharmacy: [facility] [place] [address] amLODIPine Yes See Memoria 5 mg oral 3-14 Instructio l tablet 15:07: ns, TAKE 1 Karen nn 33 TABLET BY MOUTH EVERY DAY, # 90 tab, 1 Refill(s), Pharmacy: [facility] [place] [address] amLODIPine Yes See Memoria 5 mg oral 3-14 Instructio l tablet 15:07: ns, TAKE 1 Karen nn 33 TABLET BY MOUTH EVERY DAY, # 90 tab, 1 Refill(s), Pharmacy: [facility] [place] [address] lisinopril Yes See Memoria 5 mg oral 8-21 Instructio l tablet 19:00: ns, TAKE 1 Karen nn 30 TABLET BY MOUTH DAILY, # 90 tab, 1 Refill(s), Pharmacy: [facility] [place] [address] lisinopril Yes See Memoria 5 mg oral 8-21 Instructio l tablet 19:00: ns, TAKE 1 Karen nn 30 TABLET BY MOUTH DAILY, # 90 tab, 1 Refill(s), Pharmacy: [facility] [place] [address] lisinopril Yes See Memoria 5 mg oral 8-21 Instructio l tablet 19:00: ns, TAKE 1 Karen nn 30 TABLET BY MOUTH DAILY, # 90 tab, 1 Refill(s), Pharmacy: [facility] [place] [address] lisinopril Yes See Memoria 5 mg oral 8-21 Instructio l tablet 19:00: ns, TAKE 1 Karen nn 30 TABLET BY MOUTH DAILY, # 90 tab, 1 Refill(s), Pharmacy: [facility] [place] [address] atorvastati Yes See Memori a n 40 mg 8-21 Instructio l oral tablet 18:50: ns, TAKE 1 Denis 45 TABLET BY MOUTH EVERY NIGHT AT BEDTIME, # 30 tab, 5 Refill(s), Pharmacy: [facility] [place] [address] atorvastati Yes See Memori a n 40 mg 8-21 Instructio l oral tablet 18:50: ns, TAKE 1 Denis 45 TABLET BY MOUTH EVERY NIGHT AT BEDTIME, # 30 tab, 5 Refill(s), Pharmacy: [facility] [place] [address] atorvastati Yes See Memori a n 40 mg 8-21 Instructio l oral tablet 18:50: ns, TAKE 1 [place] 45 TABLET BY MOUTH EVERY NIGHT AT BEDTIME, # 30 tab, 5 Refill(s), Pharmacy: [facility] [place] [address] atorvastati Yes See Memori a n 40 mg 8-21 Instructio l oral tablet 18:50: ns, TAKE 1 [place] 45 TABLET BY MOUTH EVERY NIGHT AT BEDTIME, # 30 tab, 5 Refill(s), Pharmacy: [facility] [place] [address] amLODIPine Yes See Memoria 5 mg oral 8-21 Instructio l tablet 18:50: ns, TAKE 1 Karen nn 41 TABLET BY MOUTH EVERY DAY, # 30 tab, 5 Refill(s), Pharmacy: [facility] [place] [address] amLODIPine Yes See Memoria 5 mg oral 8-21 Instructio l tablet 18:50: ns, TAKE 1 Karen nn 41 TABLET BY MOUTH EVERY DAY, # 30 tab, 5 Refill(s), Pharmacy: [facility] [place] [address] amLODIPine Yes See Memoria 5 mg oral 8-21 Instructio l tablet 18:50: ns, TAKE 1 Karen nn 41 TABLET BY MOUTH EVERY DAY, # 30 tab, 5 Refill(s), Pharmacy: [facility] [place] [address] amLODIPine Yes See Memoria 5 mg oral 8-21 Instructio l tablet 18:50: ns, TAKE 1 Karen nn 41 TABLET BY MOUTH EVERY DAY, # 30 tab, 5 Refill(s), Pharmacy: [facility] [place] [address] lisinopril No See Memoria 5 mg oral 7-31 Instructio l tablet 15:28: ns, # 90 [place] 34 tab, TAKE 1 TABLET BY MOUTH DAILY, Pharmacy: [facility] [place] [address] lisinopril No See Memoria 5 mg oral 7-31 Instructio l tablet 15:28: ns, # 90 [place] 34 tab, TAKE 1 TABLET BY MOUTH DAILY, Pharmacy: [facility] [place] [address] lisinopril No See Memoria 5 mg oral 7-31 Instructio l tablet 15:28: ns, # 90 [place] 34 tab, TAKE 1 TABLET BY MOUTH DAILY, Pharmacy: [facility] [place] [address] lisinopril No See Memoria 5 mg oral 7-31 Instructio l tablet 15:28: ns, # 90 [place] 34 tab, TAKE 1 TABLET BY MOUTH DAILY, Pharmacy: [facility] [place] [address] allopurinol No 300 mg = 1 Memoria 300 mg oral 5-10 tab, PO, l tablet 13:59: Daily, # Denis 00 90 tab, 1 Refill(s), Pharmacy: [place] [address] allopurinol No 300 mg = 1 Memoria 300 mg oral 5-10 tab, PO, l tablet 13:59: Daily, # Denis 00 90 tab, 1 Refill(s), Pharmacy: [place] [address] allopurinol No 300 mg = 1 Memoria 300 mg oral 5-10 tab, PO, l tablet 13:59: Daily, # Denis 00 90 tab, 1 Refill(s), Pharmacy: [place] [address] allopurinol No 300 mg = 1 Memoria 300 mg oral 5-10 tab, PO, l tablet 13:59: Daily, # Denis 00 90 tab, 1 Refill(s), Pharmacy: [place] [address] lisinopril No See Memoria 5 mg oral 5-01 Instructio l tablet 12:38: ns, # 90 Denis 18 tab, TAKE 1 TABLET BY MOUTH DAILY, Pharmacy: [place] [address] ALLOPURINOL Yes See Memori a 300MG 5-01 Instructio l TABLETS 12:38: ns, # 90 Vicente n 18 tab, TAKE 1 TABLET BY MOUTH DAILY, Pharmacy: [place] [address] lisinopril No See Memoria 5 mg oral 5-01 Instructio l tablet 12:38: ns, # 90 [place] 18 tab, TAKE 1 TABLET BY MOUTH DAILY, Pharmacy: [place] [address] ALLOPURINOL Yes See Memori a 300MG 5-01 Instructio l TABLETS 12:38: ns, # 90 Vicente n 18 tab, TAKE 1 TABLET BY MOUTH DAILY, Pharmacy: [place] [address] lisinopril 0 No See Memoria 5 mg oral 5-01 Instructio l tablet 12:38: ns, # 90 [place] 18 tab, TAKE 1 TABLET BY MOUTH DAILY, Pharmacy: [place] [address] ALLOPURINOL 0 Yes See Memori a 300MG 5-01 Instructio l TABLETS 12:38: ns, # 90 Vicente n 18 tab, TAKE 1 TABLET BY MOUTH DAILY, Pharmacy: [place] [address] lisinopril No See Memoria 5 mg oral 5-01 Instructio l tablet 12:38: ns, # 90 [place] 18 tab, TAKE 1 TABLET BY MOUTH DAILY, Pharmacy: [place] [address] ALLOPURINOL Yes See Memori a 300MG 5-01 Instructio l TABLETS 12:38: ns, # 90 Vicente n 18 tab, TAKE 1 TABLET BY MOUTH DAILY, Pharmacy: [place] [address] calcitriol Yes 0.25 Memoria 0.25 mcg 3-28 microgram l oral 13:49: = 1 cap, Denis capsule 00 PO, Daily, # 90 cap, 3 Refill(s), Pharmacy: [place] [address] calcitriol Yes 0.25 Memoria 0.25 mcg 3-28 microgram l oral 13:49: = 1 cap, [place] capsule 00 PO, Daily, # 90 cap, 3 Refill(s), Pharmacy: [facility] [place] [address] calcitriol Yes 0.25 Memoria 0.25 mcg 3-28 microgram l oral 13:49: = 1 cap, Denis capsule 00 PO, Daily, # 90 cap, 3 Refill(s), Pharmacy: [facility] [place] [address] calcitriol Yes 0.25 Memoria 0.25 mcg 3-28 microgram l oral 13:49: = 1 cap, [place] capsule 00 PO, Daily, # 90 cap, 3 Refill(s), Pharmacy: [facility] [place] [address] Mupirocin Yes 1 appl, Memor ia 0.02 MG/MG 3-21 TOP, BID, l Topical 15:37: 30 grams Vicente n Ointment 21 3each, # 3 ea, 1 Refill(s), Pharmacy: [facility] [place] [address] Mupirocin Yes 1 appl, Memor ia 0.02 MG/MG 3-21 TOP, BID, l Topical 15:37: 30 grams Vicente n Ointment 21 3each, # 3 ea, 1 Refill(s), Pharmacy: [facility] [place] [address] Mupirocin Yes 1 appl, Memor ia 0.02 MG/MG 3-21 TOP, BID, l Topical 15:37: 30 grams Vicente n Ointment 21 3each, # 3 ea, 1 Refill(s), Pharmacy: [place] [address] Mupirocin Yes 1 appl, Memor ia 0.02 MG/MG 3-21 TOP, BID, l Topical 15:37: 30 grams Vicente n Ointment 21 3each, # 3 ea, 1 Refill(s), Pharmacy: [place] [address] atorvastati Yes See Memori a n 40 mg 3-21 Instructio l oral tablet 15:36: ns, TAKE 1 [place] 22 TABLET BY MOUTH EVERY NIGHT AT BEDTIME, # 30 tab, 5 Refill(s), Pharmacy: [place] [address] atorvastati Yes See Memori a n 40 mg 3-21 Instructio l oral tablet 15:36: ns, TAKE 1 Denis 22 TABLET BY MOUTH EVERY NIGHT AT BEDTIME, # 30 tab, 5 Refill(s), Pharmacy: [place] [address] atorvastati Yes See Memori a n 40 mg 3-21 Instructio l oral tablet 15:36: ns, TAKE 1 [place] 22 TABLET BY MOUTH EVERY NIGHT AT BEDTIME, # 30 tab, 5 Refill(s), Pharmacy: [place] [address] atorvastati Yes See Memori a n 40 mg 3-21 Instructio l oral tablet 15:36: ns, TAKE 1 Denis 22 TABLET BY MOUTH EVERY NIGHT AT BEDTIME, # 30 tab, 5 Refill(s), Pharmacy: [place] [address] amLODIPine Yes See Memoria 5 mg oral 3-21 Instructio l tablet 15:36: ns, TAKE 1 Karen nn 18 TABLET BY MOUTH EVERY DAY, # 30 tab, 5 Refill(s), Pharmacy: [place] [address] amLODIPine Yes See Memoria 5 mg oral 3-21 Instructio l tablet 15:36: ns, TAKE 1 Karen nn 18 TABLET BY MOUTH EVERY DAY, # 30 tab, 5 Refill(s), Pharmacy: [place] [address] amLODIPine Yes See Memoria 5 mg oral 3-21 Instructio l tablet 15:36: ns, TAKE 1 Karen nn 18 TABLET BY MOUTH EVERY DAY, # 30 tab, 5 Refill(s), Pharmacy: [facility] [address] amLODIPine 2018-0 Yes See Memoria 5 mg oral 3-21 Instructio l tablet 15:36: ns, TAKE 1 Karen nn 18 TABLET BY MOUTH EVERY DAY, # 30 tab, 5 Refill(s), Pharmacy: [facility] aspirin 81 2017-0 Yes 81 mg = 1 Me moria mg tablet, 1-24 tab, PO, l enteric 16:34: Daily, # Vicente n coated 00 90 tab, 3 Refill(s) aspirin 81 2017 Yes 81 mg = 1 Me moria mg tablet, 1-24 tab, PO, l enteric 16:34: Daily, # Vicente n coated 00 90 tab, 3 Refill(s) aspirin 81 2017-0 Yes 81 mg = 1 Me moria mg tablet, 1-24 tab, PO, l enteric 16:34: Daily, # Vicente n coated 00 90 tab, 3 Refill(s) aspirin 81 20170 Yes 81 mg = 1 Me moria mg tablet, 1-24 tab, PO, l enteric 16:34: Daily, # Vicente n coated 00 90 tab, 3 Refill(s) Xopenex No Kyle K 0.63 mg = Mem oria 0.63 mg/3 3-11 Silvestre 3 mL, l mL 01:00: Soln, NEB, [place] inhalation 00 Once, solution first dose 12/30/15 19:00:00 FOOD SERVICE COORDINATOR, stop date 12/30/15 19:00:00 FOOD SERVICE COORDINATOR Xopenex 0 No Kyle K 0.63 mg = Mem oria 0.63 mg/3 3-11 Silvestre 3 mL, l mL 01:00: Soln, NEB, [place] inhalation 00 Once, solution first dose 12/30/15 19:00:00 FOOD SERVICE COORDINATOR, stop date 12/30/15 19:00:00 FOOD SERVICE COORDINATOR Xopenex 0 No Kyle K 0.63 mg = Mem oria 0.63 mg/3 3-11 Silvestre 3 mL, l mL 01:00: Soln, NEB, [place] inhalation 00 Once, solution first dose 12/30/15 19:00:00 FOOD SERVICE COORDINATOR, stop date 12/30/15 19:00:00 FOOD SERVICE COORDINATOR Xopenex 2015- No Kyle K 0.63 mg = Mem oria 0.63 mg/3 3-11 Silvestre 3 mL, l mL 01:00: Soln, NEB, [place] inhalation 00 Once, solution first dose 12/30/15 19:00:00 FOOD SERVICE COORDINATOR, stop date 12/30/15 19:00:00 FOOD SERVICE COORDINATOR [facility] No Perico 300 mL, Memoria Medication 3-11 Wheat Soln-IV, l 00:03: IV, Once, Denis 00 first dose 12/30/15 18:03:00 FOOD SERVICE COORDINATOR, stop date 12/30/15 18:03:00 FOOD SERVICE COORDINATOR [facility] No Perico 300 mL, Memoria Medication 3-11 Wheat Soln-IV, l 00:03: IV, Once, [place] first dose 12/30/15 18:03:00 FOOD SERVICE COORDINATOR, stop date 12/30/15 18:03:00 FOOD SERVICE COORDINATOR [facility] No Perico 300 mL, Memoria Medication 3-11 Wheat Soln-IV, l 00:03: IV, Once, [place] 00 first dose 12/30/15 18:03:00 FOOD SERVICE COORDINATOR, stop date 12/30/15 18:03:00 FOOD SERVICE COORDINATOR [facility] No Perico 300 mL, Memoria Medication 3-11 Wheat Soln-IV, l 00:03: IV, Once, Denis first dose 12/30/15 18:03:00 FOOD SERVICE COORDINATOR, stop date 12/30/15 18:03:00 FOOD SERVICE COORDINATOR promethazin No Kyle K 12.5 mg = Memoria e 3-11 Silvestre 0.5 mL, l 00:02: Injection, [place] 00 IM, Once PRN for severe nausea, first dose 12/30/15 18:02:00 FOOD SERVICE COORDINATOR albuterol No Kyle K 2.5 mg = 3 Memoria 2.5 mg/3 mL 3-11 Silvestre mL, Soln, l (0.083%) 00:02: NEB, Once Herm connie inhalation 00 PRN for solution wheezing, first dose 12/30/15 18:02:00 FOOD SERVICE COORDINATOR Demerol HCl No Kyle K 12.5 mg = Memoria 3-11 Silvestre 0.25 mL, l 00:02: Injection, [place] 00 IV Push, Once PRN for shivers, first dose 12/30/15 18:02:00 FOOD SERVICE COORDINATOR ondansetron No Kyle K 4 mg = 2 Memoria 3-11 Silvestre mL, l 00:02: Injection, Denis 00 IV Push, q15min PRN for nausea/vom iting, order duration: 2 doses, first dose 12/30/15 18:02:00 FOOD SERVICE COORDINATOR, stop date Limited # of times Dilaudid No Kyle K 0.5 mg = Mem oria 3-11 Silvestre 0.25 mL, l 00:02: Injection, [place] 00 IV Push, q10min PRN for pain severe (7-10), first dose 12/30/15 18:02:00 FOOD SERVICE COORDINATOR diphenhydrA No Kyle K 25 mg = M emoria MINE 3-11 Silvestre 0.5 mL, l 00:02: Injection, [place] 00 IV Push, Once PRN for itching, first dose 12/30/15 18:02:00 FOOD SERVICE COORDINATOR LR 1,000 mL No Kyle K 1,000 mL, Memoria 3-11 Silvestre IV, 75 l 00:02: mL/hr, Denis 00 start date 12/30/15 18:02:00 FOOD SERVICE COORDINATOR Saline Lock No Kyle K 10 mL, Me moria Flush 3-11 Silvestre Soln, IV l 00:02: Push, As [place] 00 Indicated PRN for flush, first dose 12/30/15 18:02:00 FOOD SERVICE COORDINATOR Bupivacaine No Kyle K 300 mL, M emoria 0.25% 300 3-11 Silvestre Nerve l mL pump 300 00:02: Block, 5 He rmann mL 00 mL/hr, start date 12/30/15 18:02:00 FOOD SERVICE COORDINATOR promethazin No Kyle K 12.5 mg = Memoria e 3-11 Silvestre 0.5 mL, l 00:02: Injection, [place] 00 IM, Once PRN for severe nausea, first dose 12/30/15 18:02:00 FOOD SERVICE COORDINATOR albuterol No Kyle K 2.5 mg = 3 Memoria 2.5 mg/3 mL 3-11 Silvestre mL, Soln, l (0.083%) 00:02: NEB, Once Herm connie inhalation 00 PRN for solution wheezing, first dose 12/30/15 18:02:00 FOOD SERVICE COORDINATOR Demerol HCl No Kyle K 12.5 mg = Memoria 3-11 Silvestre 0.25 mL, l 00:02: Injection, Denis 00 IV Push, Once PRN for shivers, first dose 12/30/15 18:02:00 FOOD SERVICE COORDINATOR ondansetron No Kyle K 4 mg = 2 Memoria 3-11 Silvestre mL, l 00:02: Injection, [place] 00 IV Push, q15min PRN for nausea/vom iting, order duration: 2 doses, first dose 12/30/15 18:02:00 FOOD SERVICE COORDINATOR, stop date Limited # of times Dilaudid No Kyle K 0.5 mg = Mem oria 3-11 Silvestre 0.25 mL, l 00:02: Injection, [place] 00 IV Push, q10min PRN for pain severe (7-10), first dose 12/30/15 18:02:00 FOOD SERVICE COORDINATOR diphenhydrA No Kyle K 25 mg = M emoria MINE 3-11 Silvestre 0.5 mL, l 00:02: Injection, Denis 00 IV Push, Once PRN for itching, first dose 12/30/15 18:02:00 FOOD SERVICE COORDINATOR LR 1,000 mL No Kyle K 1,000 mL, Memoria 3-11 Silvestre IV, 75 l 00:02: mL/hr, Denis 00 start date 12/30/15 18:02:00 FOOD SERVICE COORDINATOR Saline Lock No Kyle K 10 mL, Me moria Flush 3-11 Silvestre Soln, IV l 00:02: Push, As Denis 00 Indicated PRN for flush, first dose 12/30/15 18:02:00 FOOD SERVICE COORDINATOR Bupivacaine No Kyle K 300 mL, M emoria 0.25% 300 3-11 Silvestre Nerve l mL pump 300 00:02: Block, 5 He rmann mL 00 mL/hr, start date 12/30/15 18:02:00 FOOD SERVICE COORDINATOR promethazin No Kyle K 12.5 mg = Memoria e 3-11 Silvestre 0.5 mL, l 00:02: Injection, Denis 00 IM, Once PRN for severe nausea, first dose 12/30/15 18:02:00 FOOD SERVICE COORDINATOR albuterol No Kyle K 2.5 mg = 3 Memoria 2.5 mg/3 mL 3-11 Silvestre mL, Soln, l (0.083%) 00:02: NEB, Once Herm connie inhalation 00 PRN for solution wheezing, first dose 12/30/15 18:02:00 FOOD SERVICE COORDINATOR Demerol HCl No Kyle K 12.5 mg = Memoria 3-11 Silvestre 0.25 mL, l 00:02: Injection, Denis 00 IV Push, Once PRN for shivers, first dose 12/30/15 18:02:00 FOOD SERVICE COORDINATOR ondansetron No Kyle K 4 mg = 2 Memoria 3-11 Silvestre mL, l 00:02: Injection, Denis 00 IV Push, q15min PRN for nausea/vom iting, order duration: 2 doses, first dose 12/30/15 18:02:00 FOOD SERVICE COORDINATOR, stop date Limited # of times Dilaudid No Kyle K 0.5 mg = Mem oria 3-11 Silvestre 0.25 mL, l 00:02: Injection, [place] 00 IV Push, q10min PRN for pain severe (7-10), first dose 12/30/15 18:02:00 FOOD SERVICE COORDINATOR diphenhydrA No Kyle K 25 mg = M emoria MINE 3-11 Silvestre 0.5 mL, l 00:02: Injection, Denis 00 IV Push, Once PRN for itching, first dose 12/30/15 18:02:00 FOOD SERVICE COORDINATOR LR 1,000 mL No Kyle K 1,000 mL, Memoria 3-11 Silvestre IV, 75 l 00:02: mL/hr, [place] 00 start date 12/30/15 18:02:00 FOOD SERVICE COORDINATOR Saline Lock No Kyle K 10 mL, Me moria Flush 3-11 Silvestre Soln, IV l 00:02: Push, As [place] 00 Indicated PRN for flush, first dose 12/30/15 18:02:00 FOOD SERVICE COORDINATOR Bupivacaine No Kyle K 300 mL, M emoria 0.25% 300 3-11 Silvestre Nerve l mL pump 300 00:02: Block, 5 He rmann mL 00 mL/hr, start date 12/30/15 18:02:00 FOOD SERVICE COORDINATOR promethazin No Kyle K 12.5 mg = Memoria e 3-11 Silvestre 0.5 mL, l 00:02: Injection, Denis 00 IM, Once PRN for severe nausea, first dose 12/30/15 18:02:00 FOOD SERVICE COORDINATOR albuterol No Kyle K 2.5 mg = 3 Memoria 2.5 mg/3 mL 3-11 Silvestre mL, Soln, l (0.083%) 00:02: NEB, Once Herm connie inhalation 00 PRN for solution wheezing, first dose 12/30/15 18:02:00 FOOD SERVICE COORDINATOR Demerol HCl No Kyle K 12.5 mg = Memoria 3-11 Silvestre 0.25 mL, l 00:02: Injection, Denis 00 IV Push, Once PRN for shivers, first dose 12/30/15 18:02:00 FOOD SERVICE COORDINATOR ondansetron No Kyle K 4 mg = 2 Memoria 3-11 Silvestre mL, l 00:02: Injection, [place] 00 IV Push, q15min PRN for nausea/vom iting, order duration: 2 doses, first dose 12/30/15 18:02:00 FOOD SERVICE COORDINATOR, stop date Limited # of times Dilaudid No Kyle K 0.5 mg = Mem oria 3-11 Silvestre 0.25 mL, l 00:02: Injection, [place] 00 IV Push, q10min PRN for pain severe (7-10), first dose 12/30/15 18:02:00 FOOD SERVICE COORDINATOR diphenhydrA No Kyle K 25 mg = M emoria MINE 3-11 Silvestre 0.5 mL, l 00:02: Injection, Denis 00 IV Push, Once PRN for itching, first dose 12/30/15 18:02:00 FOOD SERVICE COORDINATOR LR 1,000 mL No Kyle K 1,000 mL, Memoria 3-11 Silvestre IV, 75 l 00:02: mL/hr, Denis 00 start date 12/30/15 18:02:00 FOOD SERVICE COORDINATOR Saline Lock No Kyle K 10 mL, Me moria Flush 3-11 Silvestre Soln, IV l 00:02: Push, As Denis 00 Indicated PRN for flush, first dose 12/30/15 18:02:00 FOOD SERVICE COORDINATOR Bupivacaine 2015- No Kyle K 300 mL, M emoria 0.25% 300 3-11 Silvestre Nerve l mL pump 300 00:02: Block, 5 He rmann mL 00 mL/hr, start date 12/30/15 18:02:00 FOOD SERVICE COORDINATOR [facility] No Perico 1,000 mL, Memori a Medication 3-10 Wheat Soln-IV, l 23:42: IV, Once, Denis first dose 12/30/15 17:42:00 FOOD SERVICE COORDINATOR, stop date 12/30/15 17:42:00 FOOD SERVICE COORDINATOR [facility] No Perico 1,000 mL, Memori a Medication 3-10 Wheat Soln-IV, l 23:42: IV, Once, Denis first dose 12/30/15 17:42:00 FOOD SERVICE COORDINATOR, stop date 12/30/15 17:42:00 FOOD SERVICE COORDINATOR [facility] No Perico 1,000 mL, Memori a Medication 3-10 Wheat Soln-IV, l 23:42: IV, Once, [place] first dose 12/30/15 17:42:00 FOOD SERVICE COORDINATOR, stop date 12/30/15 17:42:00 FOOD SERVICE COORDINATOR [facility] No Perico 1,000 mL, Memori a Medication 3-10 Wheat Soln-IV, l 23:42: IV, Once, [place] first dose 12/30/15 17:42:00 FOOD SERVICE COORDINATOR, stop date 12/30/15 17:42:00 FOOD SERVICE COORDINATOR fentaNYL No Perico 25 mcg = Mem oria 3-10 Wheat 0.5 mL, l 23:20: Injection, Denis 00 IV, Once, first dose 12/30/15 17:20:00 FOOD SERVICE COORDINATOR, stop date 12/30/15 17:20:00 FOOD SERVICE COORDINATOR fentaNYL No Perico 25 mcg = Mem oria 3-10 Wheat 0.5 mL, l 23:20: Injection, Denis 00 IV, Once, first dose 12/30/15 17:20:00 FOOD SERVICE COORDINATOR, stop date 12/30/15 17:20:00 FOOD SERVICE COORDINATOR fentaNYL No Perico 25 mcg = Mem oria 3-10 Wheat 0.5 mL, l 23:20: Injection, Denis 00 IV, Once, first dose 12/30/15 17:20:00 FOOD SERVICE COORDINATOR, stop date 12/30/15 17:20:00 FOOD SERVICE COORDINATOR fentaNYL 2016-0 No Perico 25 mcg = Mem oria 3-10 Wheat 0.5 mL, l 23:20: Injection, Denis 00 IV, Once, first dose 12/30/15 17:20:00 FOOD SERVICE COORDINATOR, stop date 12/30/15 17:20:00 FOOD SERVICE COORDINATOR ondansetron 2015-0 No Perico 4 mg = 2 Memoria 3-10 Wheat mL, l 23:03: Injection, [place] 00 IV, Once, first dose 12/30/15 17:03:00 FOOD SERVICE COORDINATOR, stop date 12/30/15 17:03:00 FOOD SERVICE COORDINATOR ondansetron 2015-0 No Perico 4 mg = 2 Memoria 3-10 Wheat mL, l 23:03: Injection, Denis 00 IV, Once, first dose 12/30/15 17:03:00 FOOD SERVICE COORDINATOR, stop date 12/30/15 17:03:00 FOOD SERVICE COORDINATOR ondansetron 2015-0 No Perico 4 mg = 2 Memoria 3-10 Wheat mL, l 23:03: Injection, Denis 00 IV, Once, first dose 12/30/15 17:03:00 FOOD SERVICE COORDINATOR, stop date 12/30/15 17:03:00 FOOD SERVICE COORDINATOR ondansetron 2015-0 No Perico 4 mg = 2 Memoria 3-10 Wheat mL, l 23:03: Injection, [place] 00 IV, Once, first dose 12/30/15 17:03:00 FOOD SERVICE COORDINATOR, stop date 12/30/15 17:03:00 FOOD SERVICE COORDINATOR fentaNYL 2015-0 No Perico 25 mcg = Mem oria 3-10 Wheat 0.5 mL, l 23:00: Injection, Denis 00 IV, Once, first dose 12/30/15 17:00:00 FOOD SERVICE COORDINATOR, stop date 12/30/15 17:00:00 FOOD SERVICE COORDINATOR fentaNYL 2015-0 No Perico 25 mcg = Mem oria 3-10 Wheat 0.5 mL, l 23:00: Injection, [place] 00 IV, Once, first dose 12/30/15 17:00:00 FOOD SERVICE COORDINATOR, stop date 12/30/15 17:00:00 FOOD SERVICE COORDINATOR fentaNYL 2015-0 No Perico 25 mcg = Mem oria 3-10 Wheat 0.5 mL, l 23:00: Injection, [place] 00 IV, Once, first dose 12/30/15 17:00:00 FOOD SERVICE COORDINATOR, stop date 12/30/15 17:00:00 FOOD SERVICE COORDINATOR fentaNYL 2015-0 No Perico 25 mcg = Mem oria 3-10 Wheat 0.5 mL, l 23:00: Injection, [place] 00 IV, Once, first dose 12/30/15 17:00:00 FOOD SERVICE COORDINATOR, stop date 12/30/15 17:00:00 FOOD SERVICE COORDINATOR fentaNYL 2015-0 No Perico 25 mcg = Mem oria 3-10 Wheat 0.5 mL, l 22:48: Injection, [place] 00 IV, Once, first dose 12/30/15 16:48:00 FOOD SERVICE COORDINATOR, stop date 12/30/15 16:48:00 FOOD SERVICE COORDINATOR fentaNYL 2015-0 No Perico 25 mcg = Mem oria 3-10 Wheat 0.5 mL, l 22:48: Injection, [place] 00 IV, Once, first dose 12/30/15 16:48:00 FOOD SERVICE COORDINATOR, stop date 12/30/15 16:48:00 FOOD SERVICE COORDINATOR fentaNYL 2015- No Perico 25 mcg = Mem oria 3-10 Wheat 0.5 mL, l 22:48: Injection, [place] 00 IV, Once, first dose 12/30/15 16:48:00 FOOD SERVICE COORDINATOR, stop date 12/30/15 16:48:00 FOOD SERVICE COORDINATOR fentaNYL 2015-0 No Per[place] 25 mcg = Mem oria 3-10 Wheat 0.5 mL, l 22:48: Injection, [place] 00 IV, Once, first dose 12/30/15 16:48:00 FOOD SERVICE COORDINATOR, stop date 12/30/15 16:48:00 FOOD SERVICE COORDINATOR fentaNYL 2015-0 No Perico 25 mcg = Mem oria 3-10 Wheat 0.5 mL, l 22:37: Injection, [place] 00 IV, Once, first dose 12/30/15 16:37:00 FOOD SERVICE COORDINATOR, stop date 12/30/15 16:37:00 FOOD SERVICE COORDINATOR fentaNYL 2015-0 No Perico 25 mcg = Mem oria 3-10 Wheat 0.5 mL, l 22:37: Injection, Denis 00 IV, Once, first dose 12/30/15 16:37:00 FOOD SERVICE COORDINATOR, stop date 12/30/15 16:37:00 FOOD SERVICE COORDINATOR fentaNYL 2015-0 No Perico 25 mcg = Mem oria 3-10 Wheat 0.5 mL, l 22:37: Injection, [place] 00 IV, Once, first dose 12/30/15 16:37:00 FOOD SERVICE COORDINATOR, stop date 12/30/15 16:37:00 FOOD SERVICE COORDINATOR fentaNYL 2016-0 No Perico 25 mcg = Mem oria 3-10 Wheat 0.5 mL, l 22:37: Injection, Denis 00 IV, Once, first dose 12/30/15 16:37:00 FOOD SERVICE COORDINATOR, stop date 12/30/15 16:37:00 FOOD SERVICE COORDINATOR dexamethaso 2016-0 No Perico 8 mg = 2 Memoria ne 3-10 Wheat mL, l 22:23: Injection, Denis 00 IV, Once, first dose 12/30/15 16:23:00 FOOD SERVICE COORDINATOR, stop date 12/30/15 16:23:00 FOOD SERVICE COORDINATOR dexamethaso 2015-0 No Perico 8 mg = 2 Memoria ne 3-10 Wheat mL, l 22:23: Injection, [place] 00 IV, Once, first dose 12/30/15 16:23:00 FOOD SERVICE COORDINATOR, stop date 12/30/15 16:23:00 FOOD SERVICE COORDINATOR dexamethaso 2015-0 No Perico 8 mg = 2 Memoria ne 3-10 Wheat mL, l 22:23: Injection, [place] 00 IV, Once, first dose 12/30/15 16:23:00 FOOD SERVICE COORDINATOR, stop date 12/30/15 16:23:00 FOOD SERVICE COORDINATOR dexamethaso 2015-0 No Perico 8 mg = 2 Memoria ne 3-10 Wheat mL, l 22:23: Injection, [place] 00 IV, Once, first dose 12/30/15 16:23:00 FOOD SERVICE COORDINATOR, stop date 12/30/15 16:23:00 FOOD SERVICE COORDINATOR Misc 2015-0 No Perico 1,000 mL, Memori a Medication 3-10 Wheat Soln-IV, l 22:21: IV, Once, Denis 00 first dose 12/30/15 16:21:00 FOOD SERVICE COORDINATOR, stop date 12/30/15 16:21:00 FOOD SERVICE COORDINATOR Misc 2015-0 No Perico 1,000 mL, Memori a Medication 3-10 Wheat Soln-IV, l 22:21: IV, Once, Denis 00 first dose 12/30/15 16:21:00 FOOD SERVICE COORDINATOR, stop date 12/30/15 16:21:00 FOOD SERVICE COORDINATOR Misc 0 No Perico 1,000 mL, Memori a Medication 3-10 Wheat Soln-IV, l 22:21: IV, Once, [place] 00 first dose 12/30/15 16:21:00 FOOD SERVICE COORDINATOR, stop date 12/30/15 16:21:00 FOOD SERVICE COORDINATOR Misc 0 No Perico 1,000 mL, Memori a Medication 3-10 Wheat Soln-IV, l 22:21: IV, Once, Denis 00 first dose 12/30/15 16:21:00 FOOD SERVICE COORDINATOR, stop date 12/30/15 16:21:00 FOOD SERVICE COORDINATOR clindamycin Yes [place] 928.125 M emoria 3-10 Wheat mg, l 22:18: Soln-IV, Denis 00 IV, Once, first dose 12/30/15 16:18:00 FOOD SERVICE COORDINATOR, stop date 12/30/15 16:18:00 FOOD SERVICE COORDINATOR clindamycin 0 Yes Perico 928.125 M emoria 3-10 Wheat mg, l 22:18: Soln-IV, [place] 00 IV, Once, first dose 12/30/15 16:18:00 FOOD SERVICE COORDINATOR, stop date 12/30/15 16:18:00 FOOD SERVICE COORDINATOR clindamycin 0 Yes Perico 928.125 M emoria 3-10 Wheat mg, l 22:18: Soln-IV, Denis 00 IV, Once, first dose 12/30/15 16:18:00 FOOD SERVICE COORDINATOR, stop date 12/30/15 16:18:00 FOOD SERVICE COORDINATOR clindamycin 0 Yes Perico 928.125 M emoria 3-10 Wheat mg, l 22:18: Soln-IV, [place] 00 IV, Once, first dose 12/30/15 16:18:00 FOOD SERVICE COORDINATOR, stop date 12/30/15 16:18:00 FOOD SERVICE COORDINATOR fentaNYL 2015-0 No Perico 25 mcg = Mem oria 3-10 Wheat 0.5 mL, l 22:05: Injection, [place] 00 IV, Once, first dose 12/30/15 16:05:00 FOOD SERVICE COORDINATOR, stop date 12/30/15 16:05:00 FOOD SERVICE COORDINATOR midazolam No Per[place] 0.5 mg = Me moria 3-10 Wheat 0.5 mL, l 22:05: Injection, Denis 00 IV, Once, first dose 12/30/15 16:05:00 FOOD SERVICE COORDINATOR, stop date 12/30/15 16:05:00 FOOD SERVICE COORDINATOR fentaNYL 2015-0 No Perico 25 mcg = Mem oria 3-10 Wheat 0.5 mL, l 22:05: Injection, [place] 00 IV, Once, first dose 12/30/15 16:05:00 FOOD SERVICE COORDINATOR, stop date 12/30/15 16:05:00 FOOD SERVICE COORDINATOR midazolam 2015-0 No Perico 0.5 mg = Me moria 3-10 Wheat 0.5 mL, l 22:05: Injection, [place] 00 IV, Once, first dose 12/30/15 16:05:00 FOOD SERVICE COORDINATOR, stop date 12/30/15 16:05:00 FOOD SERVICE COORDINATOR fentaNYL 2015- No Perico 25 mcg = Mem oria 3-10 Wheat 0.5 mL, l 22:05: Injection, Denis 00 IV, Once, first dose 12/30/15 16:05:00 FOOD SERVICE COORDINATOR, stop date 12/30/15 16:05:00 FOOD SERVICE COORDINATOR midazolam 2015- No Perico 0.5 mg = Me moria 3-10 Wheat 0.5 mL, l 22:05: Injection, Denis 00 IV, Once, first dose 12/30/15 16:05:00 FOOD SERVICE COORDINATOR, stop date 12/30/15 16:05:00 FOOD SERVICE COORDINATOR fentaNYL 2015- No [place] 25 mcg = Mem oria 3-10 Wheat 0.5 mL, l 22:05: Injection, Denis 00 IV, Once, first dose 12/30/15 16:05:00 FOOD SERVICE COORDINATOR, stop date 12/30/15 16:05:00 FOOD SERVICE COORDINATOR midazolam No [place] 0.5 mg = Me moria 3-10 Wheat 0.5 mL, l 22:05: Injection, [place] 00 IV, Once, first dose 12/30/15 16:05:00 FOOD SERVICE COORDINATOR, stop date 12/30/15 16:05:00 FOOD SERVICE COORDINATOR lidocaine 2015-0 No [place] 3 mL, Memor ia 3-10 Wheat Injection, l 21:58: IV, Once, Denis 00 first dose 12/30/15 15:58:00 FOOD SERVICE COORDINATOR, stop date 12/30/15 15:58:00 FOOD SERVICE COORDINATOR propofol 0 No [place] 120 mg = Mem oria 3-10 Wheat 12 mL, l 21:58: Emulsion, [place] 00 IV, Once, first dose 12/30/15 15:58:00 FOOD SERVICE COORDINATOR, stop date 12/30/15 15:58:00 FOOD SERVICE COORDINATOR lidocaine No [place] 3 mL, Memor ia 3-10 Wheat Injection, l 21:58: IV, Once, [place] 00 first dose 12/30/15 15:58:00 FOOD SERVICE COORDINATOR, stop date 12/30/15 15:58:00 FOOD SERVICE COORDINATOR propofol No [place] 120 mg = Mem oria 3-10 Wheat 12 mL, l 21:58: Emulsion, [place] 00 IV, Once, first dose 12/30/15 15:58:00 FOOD SERVICE COORDINATOR, stop date 12/30/15 15:58:00 FOOD SERVICE COORDINATOR lidocaine No Per[place] 3 mL, Memor ia 3-10 Wheat Injection, l 21:58: IV, Once, Denis 00 first dose 12/30/15 15:58:00 FOOD SERVICE COORDINATOR, stop date 12/30/15 15:58:00 FOOD SERVICE COORDINATOR propofol No [place] 120 mg = Mem oria 3-10 Wheat 12 mL, l 21:58: Emulsion, [place] 00 IV, Once, first dose 12/30/15 15:58:00 FOOD SERVICE COORDINATOR, stop date 12/30/15 15:58:00 FOOD SERVICE COORDINATOR lidocaine No Perico 3 mL, Memor ia 3-10 Wheat Injection, l 21:58: IV, Once, Denis 00 first dose 12/30/15 15:58:00 FOOD SERVICE COORDINATOR, stop date 12/30/15 15:58:00 FOOD SERVICE COORDINATOR propofol No [place] 120 mg = Mem oria 3-10 Wheat 12 mL, l 21:58: Emulsion, [place] 00 IV, Once, first dose 12/30/15 15:58:00 FOOD SERVICE COORDINATOR, stop date 12/30/15 15:58:00 FOOD SERVICE COORDINATOR midazolam No [place] 0.5 mg = Me moria 3-10 Wheat 0.5 mL, l 21:50: Injection, Denis 00 IV, Once, first dose 12/30/15 15:50:00 FOOD SERVICE COORDINATOR, stop date 12/30/15 15:50:00 FOOD SERVICE COORDINATOR fentaNYL No [place] 25 mcg = Mem oria 3-10 Wheat 0.5 mL, l 21:50: Injection, Denis 00 IV, Once, first dose 12/30/15 15:50:00 FOOD SERVICE COORDINATOR, stop date 12/30/15 15:50:00 FOOD SERVICE COORDINATOR midazolam 2015-0 No Perico 0.5 mg = Me moria 3-10 Wheat 0.5 mL, l 21:50: Injection, [place] 00 IV, Once, first dose 12/30/15 15:50:00 FOOD SERVICE COORDINATOR, stop date 12/30/15 15:50:00 FOOD SERVICE COORDINATOR fentaNYL 2015-0 No Perico 25 mcg = Mem oria 3-10 Wheat 0.5 mL, l 21:50: Injection, Denis 00 IV, Once, first dose 12/30/15 15:50:00 FOOD SERVICE COORDINATOR, stop date 12/30/15 15:50:00 FOOD SERVICE COORDINATOR midazolam 2015-0 No Perico 0.5 mg = Me moria 3-10 Wheat 0.5 mL, l 21:50: Injection, [place] 00 IV, Once, first dose 12/30/15 15:50:00 FOOD SERVICE COORDINATOR, stop date 12/30/15 15:50:00 FOOD SERVICE COORDINATOR fentaNYL 2015- No Perico 25 mcg = Mem oria 3-10 Wheat 0.5 mL, l 21:50: Injection, [place] 00 IV, Once, first dose 12/30/15 15:50:00 FOOD SERVICE COORDINATOR, stop date 12/30/15 15:50:00 FOOD SERVICE COORDINATOR midazolam 2015-0 No Perico 0.5 mg = Me moria 3-10 Wheat 0.5 mL, l 21:50: Injection, Denis 00 IV, Once, first dose 12/30/15 15:50:00 FOOD SERVICE COORDINATOR, stop date 12/30/15 15:50:00 FOOD SERVICE COORDINATOR fentaNYL 2015-0 No Perico 25 mcg = Mem oria 3-10 Wheat 0.5 mL, l 21:50: Injection, [place] 00 IV, Once, first dose 12/30/15 15:50:00 FOOD SERVICE COORDINATOR, stop date 12/30/15 15:50:00 FOOD SERVICE COORDINATOR midazolam 2015-0 No Perico 0.5 mg = Me moria 3-10 Wheat 0.5 mL, l 21:10: Injection, [place] 00 IV, Once, first dose 12/30/15 15:10:00 FOOD SERVICE COORDINATOR, stop date 12/30/15 15:10:00 FOOD SERVICE COORDINATOR fentaNYL 2015-0 No Perico 25 mcg = Mem oria 3-10 Wheat 0.5 mL, l 21:10: Injection, Denis 00 IV, Once, first dose 12/30/15 15:10:00 FOOD SERVICE COORDINATOR, stop date 12/30/15 15:10:00 FOOD SERVICE COORDINATOR midazolam 2016-0 No Perico 0.5 mg = Me moria 3-10 Wheat 0.5 mL, l 21:10: Injection, Denis 00 IV, Once, first dose 12/30/15 15:10:00 FOOD SERVICE COORDINATOR, stop date 12/30/15 15:10:00 FOOD SERVICE COORDINATOR fentaNYL 2015-0 No Perico 25 mcg = Mem oria 3-10 Wheat 0.5 mL, l 21:10: Injection, Denis 00 IV, Once, first dose 12/30/15 15:10:00 FOOD SERVICE COORDINATOR, stop date 12/30/15 15:10:00 FOOD SERVICE COORDINATOR midazolam 2015-0 No Perico 0.5 mg = Me moria 3-10 Wheat 0.5 mL, l 21:10: Injection, Denis 00 IV, Once, first dose 12/30/15 15:10:00 FOOD SERVICE COORDINATOR, stop date 12/30/15 15:10:00 FOOD SERVICE COORDINATOR fentaNYL 2015-0 No Perico 25 mcg = Mem oria 3-10 Wheat 0.5 mL, l 21:10: Injection, [place] 00 IV, Once, first dose 12/30/15 15:10:00 FOOD SERVICE COORDINATOR, stop date 12/30/15 15:10:00 FOOD SERVICE COORDINATOR midazolam 2015-0 No Perico 0.5 mg = Me moria 3-10 Wheat 0.5 mL, l 21:10: Injection, Denis 00 IV, Once, first dose 12/30/15 15:10:00 FOOD SERVICE COORDINATOR, stop date 12/30/15 15:10:00 FOOD SERVICE COORDINATOR fentaNYL 2015-0 No Perico 25 mcg = Mem oria 3-10 Wheat 0.5 mL, l 21:10: Injection, [place] 00 IV, Once, first dose 12/30/15 15:10:00 FOOD SERVICE COORDINATOR, stop date 12/30/15 15:10:00 FOOD SERVICE COORDINATOR fentaNYL 2016-0 No Perico 25 mcg = Mem oria 3-10 Wheat 0.5 mL, l 21:05: Injection, Denis 00 IV, Once, first dose 12/30/15 15:05:00 FOOD SERVICE COORDINATOR, stop date 12/30/15 15:05:00 FOOD SERVICE COORDINATOR midazolam 0 No Perico 0.5 mg = Me moria 3-10 Wheat 0.5 mL, l 21:05: Injection, Denis 00 IV, Once, first dose 12/30/15 15:05:00 FOOD SERVICE COORDINATOR, stop date 12/30/15 15:05:00 FOOD SERVICE COORDINATOR fentaNYL 2015-0 No Perico 25 mcg = Mem oria 3-10 Wheat 0.5 mL, l 21:05: Injection, [place] 00 IV, Once, first dose 12/30/15 15:05:00 FOOD SERVICE COORDINATOR, stop date 12/30/15 15:05:00 FOOD SERVICE COORDINATOR midazolam No Perico 0.5 mg = Me moria 3-10 Wheat 0.5 mL, l 21:05: Injection, [place] 00 IV, Once, first dose 12/30/15 15:05:00 FOOD SERVICE COORDINATOR, stop date 12/30/15 15:05:00 FOOD SERVICE COORDINATOR fentaNYL 2015- No Perico 25 mcg = Mem oria 3-10 Wheat 0.5 mL, l 21:05: Injection, [place] 00 IV, Once, first dose 12/30/15 15:05:00 FOOD SERVICE COORDINATOR, stop date 12/30/15 15:05:00 FOOD SERVICE COORDINATOR midazolam No Perico 0.5 mg = Me moria 3-10 Wheat 0.5 mL, l 21:05: Injection, Denis 00 IV, Once, first dose 12/30/15 15:05:00 FOOD SERVICE COORDINATOR, stop date 12/30/15 15:05:00 FOOD SERVICE COORDINATOR fentaNYL 2015-0 No Perico 25 mcg = Mem oria 3-10 Wheat 0.5 mL, l 21:05: Injection, Denis 00 IV, Once, first dose 12/30/15 15:05:00 FOOD SERVICE COORDINATOR, stop date 12/30/15 15:05:00 FOOD SERVICE COORDINATOR midazolam 0 No Perico 0.5 mg = Me moria 3-10 Wheat 0.5 mL, l 21:05: Injection, Denis 00 IV, Once, first dose 12/30/15 15:05:00 FOOD SERVICE COORDINATOR, stop date 12/30/15 15:05:00 FOOD SERVICE COORDINATOR clindamycin 2015-0 No Jose Francisco 900 mg, IV Memoria 3-10 Johnson Piggyback, l 20:00: Once, [place] 00 infuse over 30 minutes, first dose 12/30/15 14:00:00 FOOD SERVICE COORDINATOR, stop date 12/30/15 14:00:00 FOOD SERVICE COORDINATOR, Prophylaxi s clindamycin 2015-0 No Jose Francisco 900 mg, IV Memoria 3-10 Johnson Piggyback, l 20:00: Once, [place] 00 infuse over 30 minutes, first dose 12/30/15 14:00:00 FOOD SERVICE COORDINATOR, stop date 12/30/15 14:00:00 FOOD SERVICE COORDINATOR, Prophylaxi s clindamycin 2015-0 No Jose Francisco 900 mg, IV Memoria 3-10 Johnson Piggyback, l 20:00: Once, [place] 00 infuse over 30 minutes, first dose 12/30/15 14:00:00 FOOD SERVICE COORDINATOR, stop date 12/30/15 14:00:00 FOOD SERVICE COORDINATOR, Prophylaxi s clindamycin 2015-0 No Jose Francisco 900 mg, IV Memoria 3-10 Johnson Piggyback, l 20:00: Once, [place] 00 infuse over 30 minutes, first dose 12/30/15 14:00:00 FOOD SERVICE COORDINATOR, stop date 12/30/15 14:00:00 FOOD SERVICE COORDINATOR, Prophylaxi s LR 1,000 mL 2015-0 No Kyle K 1,000 mL, Memoria 3-10 Silvestre IV, 30 l 19:27: mL/hr, start date 12/30/15 13:27:00 FOOD SERVICE COORDINATOR Lidocaine 2015-0 No Kyle K 0.2 mL, Mem oria 2% 0.2 mL 3-10 Silvestre Injection, l IV Start 19:27: [facility] [[facility]] 00 us, Once PRN for other (see comment), first dose 12/30/15 13:27:00 FOOD SERVICE COORDINATOR LR 1,000 mL 2015-0 No Kyle K 1,000 mL, Memoria 3-10 Silvestre IV, 30 l 19:27: mL/hr, [place] 00 start date 12/30/15 13:27:00 FOOD SERVICE COORDINATOR Lidocaine 2015-0 No Kyle K 0.2 mL, Mem oria 2% 0.2 mL 3-10 Silvestre Injection, l IV Start 19:27: [facility] [[facility]] 00 us, Once PRN for other (see comment), first dose 12/30/15 13:27:00 FOOD SERVICE COORDINATOR LR 1,000 mL No Kyle K 1,000 mL, Memoria 3-10 Silvestre IV, 30 l 19:27: mL/hr, start date 12/30/15 13:27:00 FOOD SERVICE COORDINATOR Lidocaine No Kyle K 0.2 mL, Mem oria 2% 0.2 mL 3-10 Silvestre Injection, l IV Start 19:27: [facility]cutaneo [facility] [[facility]] 00 us, Once PRN for other (see comment), first dose 12/30/15 13:27:00 FOOD SERVICE COORDINATOR LR 1,000 mL No Kyle K 1,000 mL, Memoria 3-10 Silvestre IV, 30 l 19:27: mL/hr, start date 12/30/15 13:27:00 FOOD SERVICE COORDINATOR Lidocaine No Kyle K 0.2 mL, Mem oria 2% 0.2 mL 3-10 Silvestre Injection, l IV Start 19:27: [facility] [[facility]] 00 us, Once PRN for other (see comment), first dose 12/30/15 13:27:00 FOOD SERVICE COORDINATOR Seroquel Yes 100 mg, Memori a 3-09 [...] amLODIPine- Yes 1 tabs, Mem oria atorvastati 3-09 Oral, qHS, l n 5 mg-40 14:40: 0 Denis mg oral 00 Refill(s), tablet cholestero l/hyperten will Osteo Yes Oral, Memoria Bi-Flex 3-09 Daily, 0 l 14:40: Refill(s), Denis 00 supplement Nature's Yes 1,000 mg = Mem oria Bounty Red 09 2 caps, l Krill Oil 14:40: Oral, BID, [place] r[place] 500 mg oral 00 0 capsule Refill(s), supplement aspirin 81 Yes 81 mg = 1 Me moria mg oral 3-09 tabs, l tablet 14:40: Oral, [place] 00 Daily, 0 Refill(s), supplement Axert 12.5 Yes 12.5 mg = Me moria mg oral - 1 tabs, l tablet 14:40: Oral, Denis 00 Once, PRN for migraine headache, may repeat dose once in 2 hours, # 6 tabs, 0 Refill(s), migrainesm ay repeat dose once in 2 hours Wellbutrin Yes 300 mg, Turner arnoldo XL 3- Oral, l 14:40: q24hr, 0 [place] 00 Refill(s), migraines Seroquel Yes 100 mg, Memori a - Oral, l 14:40: Daily, 0 Denis 00 Refill(s), migraines acetaminoph Yes 1 tabs, Mem oria en-HYDROcod - Oral, l one 325 14:40: q6hr, 0 Denis mg-5 mg 00 Refill(s), oral tablet pain traMADol 50 Yes 50 mg = 1 M emoria mg oral 3-09 tabs, l tablet 14:40: Oral, [place] 00 q4hr, 0 Refill(s), pain amLODIPine- Yes 1 tabs, Mem oria atorvastati 3-09 Oral, qHS, l n 5 mg-40 14:40: [...] mg = 1 Me moria mg oral 3-09 tabs, l tablet 14:40: Oral, Denis 00 Daily, 0 Refill(s), supplement Axert 12.5 Yes 12.5 mg = Me moria mg oral 3 1 tabs, l tablet 14:40: Oral, Denis 00 Once, PRN for migraine headache, may repeat dose once in 2 hours, # 6 tabs, 0 Refill(s), migrainesm ay repeat dose once in 2 hours Wellbutrin Yes 300 mg, Turner arnoldo XL 3- Oral, l 14:40: q24hr, 0 Denis 00 Refill(s), migraines Seroquel Yes 100 mg, Memori a 3- Oral, l 14:40: Daily, 0 [place] 00 Refill(s), migraines acetaminoph Yes 1 tabs, Mem oria en-HYDROcod 12-28 Oral, l one 325 14:40: q6hr, 0 [place] mg-5 mg 00 Refill(s), oral tablet pain traMADol 50 Yes 50 mg = 1 M emoria mg oral - tabs, l tablet 14:40: Oral, [place] 00 q4hr, 0 Refill(s), pain amLODIPine- Yes 1 tabs, Mem oria atorvastati 3- Oral, qHS, l n 5 mg-40 14:40: 0 [place] mg oral 00 Refill(s), tablet cholestero l/hyperten will Osteo Yes Oral, Memoria Bi-Flex 3-09 Daily, 0 l 14:40: Refill(s), Denis 00 supplement Nature's Yes 1,000 mg = Mem oria Bounty Red 12-28 2 caps, l Krill Oil 14:40: Oral, BID, He rmann 500 mg oral 00 0 capsule Refill(s), supplement aspirin 81 Yes 81 mg = 1 Me moria mg oral 3-09 tabs, l tablet 14:40: Oral, [place] 00 Daily, 0 Refill(s), supplement Axert 12.5 Yes 12.5 mg = Me moria mg oral 12-28 1 tabs, l tablet 14:40: Oral, [place] 00 Once, PRN for migraine headache, may repeat dose once in 2 hours, # 6 tabs, 0 Refill(s), migrainesm ay repeat dose once in 2 hours Wellbutrin Yes 300 mg, Turner arnoldo XL 3-09 Oral, l 14:40: q24hr, 0 Denis 00 Refill(s), migraines Seroquel Yes 100 mg, Memori a 3- Oral, l 14:40: Daily, 0 [place] 00 Refill(s), migraines acetaminoph Yes 1 tabs, Mem oria en-HYDROcod 3- Oral, l one 325 14:40: q6hr, 0 [place] mg-5 mg 00 Refill(s), oral tablet pain traMADol 50 Yes 50 mg = 1 M emoria mg oral 3- tabs, l tablet 14:40: Oral, [place] 00 q4hr, 0 Refill(s), pain amLODIPine- Yes 1 tabs, Mem oria atorvastati - Oral, qHS, l n 5 mg-40 14:40: 0 [place] mg oral 00 Refill(s), tablet cholestero l/hyperten [...] 12.5 mg = Me moria mg oral 09 1 tabs, l tablet 14:40: Oral, Denis 00 Once, PRN for migraine headache, may repeat dose once in 2 hours, # 6 tabs, 0 Refill(s), migrainesm ay repeat dose once in 2 hours Wellbutrin Yes 300 mg, Turner arnoldo XL 3-09 Oral, l 14:40: q24hr, 0 Denis 00 Refill(s), migraines Immunizations Ordered Immunization Filled Immunization Date Status Commen ts Source Name Name ALYX QUAD PF 2022-06-[address] [facility] Bebtelovimab 2022-04-16 Completed [facility] 00:[facility]:00 Hospital FLUCELVAX QUAD PF 2021-07-[address] [facility] Hospital FLUCELVAX QUAD PF 2020-09-[address] [facility]00 [facility] Hx influenza 2019-08-13 Completed [facility] vaccine-unspecified< 00:00:00 sup>1</sup> Hx influenza 2019-08-13 Completed [facility] vaccine-unspecified< 00:00:00 sup>1</sup> Hx influenza 2019-08-13 Completed [facility] vaccine-unspecified< 00:00:00 sup>1</sup> FLUCELVAX QUAD PF 2019-08-[address] [facility]00 [facility] Hx influenza 2019-08-13 Completed [facility] vaccine-unspecified< 00:00:00 sup>1</sup> Tdap 2019-06-28 Completed [facility] 00:00:00 Hospital pneumococcal 2019-05-14 Completed [facility] [...] Source Systolic blood 2022-08-27 21:24:34 114 mm[Hg] [facility] pressure Diastolic blood 2022-08-27 21:24:34 57 mm[Hg] [facility] pressure Heart rate 2022-08-27 21:24:34 87 /min [facility] Body temperature 2022-08-27 21:24:34 36.61 Linda [facility] Respiratory rate 2022-08-27 21:24:34 18 /min [facility] Oxygen saturation in 2022-08-27 21:24:34 100 /min [facility] Arterial blood by Pulse oximetry Body height 2022-08-27 05:00:00 170.2 cm [facility] Body weight 2022-08-27 05:00:00 107.2 kg [facility] BMI 2022-08-27 05:00:00 37.02 kg/m2 [facility] Temperature Oral (F) 2022-04-19 19:52:00 97.6 F [facility] Height 2022-04-19 19:52:00 170.18 cm [facility] Denis Weight 2022-04-19 19:52:00 [facility] [place] BMI Calculated 2022-04-19 19:52:00 [facility] [place] Heart Rate 2021-10-17 21:23:00 [facility] [place] Systolic (mm Hg) 2021-10-17 21:23:00 Turner rial Denis Diastolic (mm Hg) 2021-10-17 21:23:00 Mem o[facility] Denis Height 2021-10-17 21:23:00 165.1 cm [facility] [place] Weight 2021-10-17 21:23:00 [facility] BMI Calculated 2021-10-17 21:23:00 [facility] Denis Heart Rate 2021-09-09 20:12:00 [facility] [place] Heart Rate 2021-09-09 20:08:00 [facility] Systolic (mm Hg) 2021-09-09 20:08:00 Turner rial [place] Diastolic (mm Hg) 2021-09-09 20:08:00 Mem orial [place] Height 2021-09-09 20:08:00 165.1 cm [facility] [place] Weight 2021-09-09 20:08:00 [facility] [place] BMI Calculated 2021-09-09 20:08:00 [facility]ori al Denis Systolic (mm Hg) 2020-09-15 15:59:00 Turner rial Denis Diastolic (mm Hg) 2020-09-15 15:59:00 Mem orial Denis Heart Rate 2020-09-15 15:59:00 [facility] Height 2020-09-15 15:59:00 165.1 cm [facility] [place] Weight 2020-09-15 15:59:00 [facility] [place] BMI Calculated 2020-09-15 15:59:00 [facility]ori al Denis Systolic (mm Hg) 2019-12-16 20:42:00 Turner rial Denis Diastolic (mm Hg) 2019-12-16 20:42:00 Mem orial Denis Heart Rate 2019-12-16 20:42:00 [facility] Temperature Oral (F) 2019-12-16 20:42:00 98.2 F [facility] [place] Height 2019-12-16 20:42:00 170.18 cm [facility] Weight 2019-12-16 20:42:00 [facility] BMI Calculated 2019-12-16 20:42:00 Memori al Denis Systolic (mm Hg) 2019-10-02 21:53:00 Turner rial Denis Diastolic (mm Hg) 2019-10-02 21:53:00 Mem orial Denis Heart Rate 2019-10-02 21:53:00 [facility] Temperature Oral (F) 2019-10-02 21:53:00 97.9 F [facility] [place] Height 2019-10-02 21:53:00 165.1 cm [facility] [place] Weight 2019-10-02 21:53:00 [facility] [place] BMI Calculated 2019-10-02 21:53:00 [facility] [place] Height 2019-08-15 14:54:00 165.1 cm [facility] Weight 2019-08-15 14:54:00 [facility] [place] BMI Calculated 2019-08-15 14:54:00 [facility] [place] Systolic (mm Hg) 2019-08-15 14:54:00 Turner rial Denis Diastolic (mm Hg) 2019-08-15 14:54:00 Mem orial [place] Heart Rate 2019-08-15 14:54:00 [facility] Temperature Oral (F) 2019-08-15 14:54:00 97.6 F [facility] Systolic (mm Hg) 2019-07-31 15:37:00 Turner rial [place] Diastolic (mm Hg) 2019-07-31 15:37:00 Mem orial [place] Heart Rate 2019-07-31 15:37:00 [facility] Temperature Oral (F) 2019-07-31 15:37:00 98.2 F [facility] Height 2019-07-31 15:37:00 165.1 cm [facility] [place] Weight 2019-07-31 15:37:00 [facility] [place] BMI Calculated 2019-07-31 15:37:00 [facility] [place] Weight 2019-03-27 15:18:00 [facility] [place] BMI Calculated 2019-03-27 15:18:00 [facility] [place] Height 2019-03-27 15:18:00 165.1 cm [facility] [place] Temperature Oral (F) 2019-03-27 15:18:00 98.4 F [facility] [place] Heart Rate 2019-03-27 15:18:00 [facility] [place] Systolic (mm Hg) 2019-03-27 15:18:00 Turner rial [place] Diastolic (mm Hg) 2019-03-27 15:18:00 Mem orial Denis Height 2019-01-02 19:16:00 165.1 cm [facility] [place] BMI Calculated 2019-01-02 19:16:00 [facility] [place] Weight 2019-01-02 19:16:00 [facility] [place] Heart Rate 2019-01-02 19:16:00 [facility] [place] Systolic (mm Hg) 2019-01-02 19:16:00 Turner rial Denis Diastolic (mm Hg) 2019-01-02 19:16:00 Mem orial [place] Height 2019-01-02 14:26:00 167.01 cm [facility] BMI Calculated 2019-01-02 14:26:00 [facility] [place] Weight 2019-01-02 14:26:00 [facility] [place] Heart Rate 2019-01-02 14:26:00 [facility] Temperature Oral (F) 2019-01-02 14:26:00 97.9 F [facility] [place] Systolic (mm Hg) 2019-01-02 14:26:00 Turner rial Denis Diastolic (mm Hg) 2019-01-02 14:26:00 Mem orial [place] Systolic (mm Hg) 2018-07-18 18:33:00 Turner rial Denis Diastolic (mm Hg) 2018-07-18 18:33:00 Mem orial Denis Heart Rate 2018-07-18 18:33:00 [facility] [place] Weight 2018-07-18 18:33:00 [facility] BMI Calculated 2018-06-11 18:31:00 [facility] [place] Weight 2018-06-11 18:31:00 [facility] [place] Systolic (mm Hg) 2018-06-11 18:31:00 Turner rial Denis Diastolic (mm Hg) 2018-06-11 18:31:00 Mem orial Denis Height 2018-06-11 18:31:00 170.18 cm [facility] [place] Temperature Oral (F) 2018-06-11 18:31:00 98.3 F [facility] Heart Rate 2018-06-11 18:31:00 [facility] Weight 2018-01-10 16:14:00 [facility] Height 2018-01-10 16:14:00 170.18 cm [facility] BMI Calculated 2018-01-10 16:14:00 Memori al Denis Heart Rate 2018-01-10 16:14:00 [facility] Systolic (mm Hg) 2018-01-10 16:14:00 Turner rial [place] Diastolic (mm Hg) 2018-01-10 16:14:00 Mem orial Denis BMI Calculated 2018-01-09 15:06:00 Memori [facility] [place] Height 2018-01-09 15:06:00 170.18 cm [facility] [place] Weight 2018-01-09 15:06:00 [facility] [place] Systolic (mm Hg) 2018-01-09 15:06:00 Turner rial [place] Diastolic (mm Hg) 2018-01-09 15:06:00 Mem orial Denis Heart Rate 2018-01-09 15:06:00 [facility] Temperature Oral (F) 2018-01-09 15:06:00 97.9 F [facility] Weight 2016-11-14 16:17:00 [facility] [place] Height 2016-11-14 16:17:00 170.18 cm [facility] BMI Calculated 2016-11-14 16:17:00 Memori al Denis Respitory Rate 2015-12-31 01:25:00 Memori al Denis Systolic (mm Hg) 2015-12-31 00:50:00 Turner rial Denis Respitory Rate 2015-12-31 00:50:00 Memori al [place] Heart Rate 2015-12-31 00:50:00 [facility] Systolic (mm Hg) 2015-12-31 00:40:00 Turner rial [place] Respitory Rate 2015-12-31 00:40:00 Memori [facility] [place] Heart Rate 2015-12-31 00:40:00 [facility] [place] Heart Rate 2015-12-31 00:30:00 [facility] Systolic (mm Hg) 2015-12-31 00:30:00 Turner rial [place] Temperature Oral (F) 2015-12-30 23:50:00 37.1 Linda [facility] Height 2015-12-30 19:23:00 169 cm [facility] [place] Weight 2015-12-30 19:23:00 [facility] [place] Temperature Oral (F) 2015-12-30 19:23:00 36.6 Linda [facility] [place] Height 2015-12-29 14:13:00 170 cm [facility] [place] Weight 2015-12-29 14:13:00 [facility] Procedures Procedure Date / Time Performing Clinician Source Performed PROTHROMBIN TIME WITH INR 2022-08-27 06:57:00 Cy Sosa [facility] COMPREHENSIVE METABOLIC 2022-08-27 06:57:00 Cy Sosa [facility] PANEL MAGNESIUM LEVEL 2022-08-27 06:57:00 Cy Sosa spital PHOSPHORUS LEVEL 2022-08-27 06:57:00 Cy Sosa ospital ESTIMATED GFR 2022-08-27 06:57:00 Cy Sosa spital TROPONIN T 2022-08-27 06:57:00 Cy Sosa spital ZZCOVID-19 ANTI-SPIKE IGG 2022-08-27 06:56:00 Cy Sosa [facility] ANTIBODY TITER COVID-19 SEROLOGY PATIENT 2022-08-27 06:56:00 Cy Sosa [facility] SURVEILLANCE HC COMPLETE BLD COUNT 2022-08-27 06:56:00 [facility] W/AUTO DIFF COVID-19 QUALITATIVE 2022-08-27 04:58:00 [facility] RT-PCR TROPONIN T 2022-08-27 03:58:00 Cy Sosa spital XR CHEST 1 VW PORTABLE 2022-08-27 01:31:25 [facility] METABOLIC 2022-08-27 01:20:[address] [facility] PANEL LIPASE LEVEL 2022-08-27 01:20:00 [facility] TROPONIN T 2022-08-27 01:20[facility]00 [facility] NATRIURETIC PEPTIDE 2022-08-27 01:20:00 [facility] HC COMPLETE BLD COUNT 2022-08-27 01:20:00 [facility] W/AUTO DIFF ESTIMATED GFR 2022-08-27 01:20:00 [facility] ECG 12-LEAD 2022-08-27 01:03:45 Cy Sosa spital [facility] 2022-08-22 16:47:00 [facility] Mary [facility] PANEL Herbert CBC WITH PLATELET AND 2022-08-22 16:47:00 [facility] DIFFERENTIAL Herbert THYROID STIMULATING 2022-08-22 16:47:00 [facility] HORMONE Herbert PARATHYROID HORMONE 2022-08-22 16:47:00 [facility] Herbert VITAMIN D 25 HYDROXY LEVEL 2022-08-22 16:47:00 [facility] NM BONE SCAN 3 PHASE 2022-07-26 18:11:00 [facility] Herbert BONE DENSITY 2022-07-26 14:02:[address] [facility] spital Herbert BONE DENSITY PERIPHERAL 2022-07-26 14:02:48 Mary Ontiveros [facility] Herbert POC GLUCOSE 2022-06-28 04:49:00 [facility] HEMOGRAM 2022-06-27 10:05:00 JohnKeith masterson Ho spital BASIC METABOLIC PANEL 2022-06-27 10:05:00 [facility] ESTIMATED GFR 2022-06-27 10:05:[address] [facility] spital Herbert XR LUMBAR SPINE 2 OR 3 VW 2022-06-26 21:10:24 John, Keithmiguel Porras [facility] XR THORACIC SPINE 2 VW 2022-06-26 21:10:08 John, Keith KHanna [facility] XR CHEST 1 VW PORTABLE 2022-06-26 19:05:29 Maddison Wharton [facility] BASIC METABOLIC PANEL 2022-06-26 09:08:00 [facility] PHOSPHORUS LEVEL 2022-06-26 09:08:00 [facility]raw[facility] ESTIMATED GFR 2022-06-26 09:08:00 [facility] TTE COMPLETE, WO CONTRAST, 2022-06-25 15:40:58 [facility] D[facility]ER ([id number][facility] MRI THORACIC SPINE WO 2022-06-25 02:11:31 Mary Ontiveros [facility] CONTRAST Herbert MRI LUMBAR SPINE WO 2022-06-25 01:29:36 Clifton Lantigua [facility] CORE ANTIBODY 2022-06-24 17:34:00 Dina Cuello [facility] TOTAL HEPATITIS B SURFACE AB, 2022-06-24 17:34:00 CuelloDina gurrola [facility] QUANTITATIVE HEPATITIS B SURFACE 2022-06-24 17:34:00 Dina Cuello [facility] ANTIGEN COVID-19 QUALITATIVE 2022-06-24 16:35:00 Clifton Lantigua [facility] RT-PCR Dasharathbhai COVID-19 OMICRON VARIANT 2022-06-24 16:35:00 [facility] QUALITATIVE RT-PCR [facility] POC GLUCOSE 2022-06-24 16:35:00 Maddison Wharton Ho spital POC GLUCOSE 2022-06-24 15:09:[address] [facility] [facility] WO 2022-06-24 13:41:51 [facility] CONTRAST [facility] CT RENAL STONE PROTOCOL 2022-06-24 13:41:38 [facility] HC COMPLETE BLD COUNT 2022-06-24 12:44:00 [facility] W/AUTO DIFF [facility] 2022-06-24 12:44:00 [facility] PANEL [facility] ESTIMATED GFR 2022-06-24 12:44:00 [facility] MD CRITICAL CARE, E/M 2022-06-24 12:28:33 [facility] 30-74 MINUTES [facility] HEPATITIS B SURFACE 2022-05-20 15:33:[address] [facility] ANTIGEN [facility] HEPATITIS B SURFACE 2022-05-20 15:33:00 [facility] ANTIBODY [facility] XR CHEST 1 VW PORTABLE 2022-04-29 13:25:18 Rajwinder Kay [facility] METABOLIC 2022-04-29 10:32:00 Amos Pressley [facility] PANEL HC COMPLETE BLD COUNT 2022-04-29 10:32:00 Amos Pressley [facility] W/AUTO DIFF ESTIMATED GFR 2022-04-29 10:32:00 [facility] 2022-04-29 05:06:40 Catalina Teran reema Sheppard HEPATITIS B CORE ANTIBODY 2022-04-28 20:59:00 Jeffry [facility] TOTAL [facility] HEPATITIS B CORE ANTIBODY 2022-04-28 20:59:00 [facility] IGM [facility] HEPATITIS B SURFACE 2022-04-28 20:59:00 Jeffry [facility] ANTIGEN [facility] HEPATITIS B SURFACE AB, 2022-04-28 20:58:00 Jeffry [facility] QUANTITATIVE Valarie HEMODIALYSIS 2022-04-28 15:58:[address] [facility] ospital [facility] TROPONIN T 2022-04-28 15:44:00 [facility] XR CHEST 1 VW PORTABLE 2022-04-28 11:41:07 [facility] TROPONIN T 2022-04-28 11:41:00 [facility] HC COMPLETE BLD COUNT 2022-04-28 11:41:00 [facility] W/AUTO DIFF COMPREHENSIVE METABOLIC 2022-04-28 11:41:00 [facility] PANEL PROTHROMBIN TIME WITH INR 2022-04-28 11:41:[address] [facility] [address] [facility] PARTIAL THROMBOPLASTIN 2022-04-28 11:41:00 [facility] TIME (PTT) B NATRIURETIC PEPTIDE 2022-04-28 11:41:00 [facility] PROCALCITONIN 2022-04-28 11:41:00 [facility] CREATINE KINASE, TOTAL 2022-04-28 11:41:00 [facility] (CPK) C-REACTIVE PROTEIN 2022-04-28 11:41:00 [facility] INTERLEUKIN 6 2022-04-28 11:41:00 [facility] FERRITIN LEVEL 2022-04-28 11:41:00 [facility] D-DIMER 2022-04-28 11:41:00 [facility] LDH 2022-04-28 11:41:00 [facility] FIBRINOGEN 2022-04-28 11:41:00 [facility] ESTIMATED GFR 2022-04-28 11:41:00 [facility] RESPIRATORY PATHOGEN PANEL 2022-04-28 09:45:00 [facility]-19 RT-PCR [facility] XR CHEST 1 VW 2022-04-28 08:05:46 Taylor Woodall BLOOD CULTURE, AEROBIC & 2022-04-28 07:49:00 Taylor Woodall [facility] ANAEROBIC [facility] HC COMPLETE BLD COUNT 2022-04-28 07:49:00 Taylor Woodall [facility] W/AUTO DIFF [facility] COMPREHENSIVE METABOLIC 2022-04-28 07:49:00 Taylor Woodall [facility] PANEL [facility] TROPONIN T 2022-04-28 07:49:00 [facility] B NATRIURETIC PEPTIDE 2022-04-28 07:49:00 [facility] ESTIMATED GFR 2022-04-28 07:49:00 Taylor Woodall ECG ED PRELIMINARY 2022-04-28 07:26:13 Taylor Woodall [facility] INTERPRETATION [facility] ECG 12-LEAD 2022-04-28 07:20:[address] ABDOMEN PELVIS WO 2022-04-16 23:38:27 Cornelio [facility] CONTRAST HC COMPLETE BLD COUNT 2022-04-16 23:14:00 Cornelio [facility] W/AUTO DIFF COMPREHENSIVE METABOLIC 2022-04-16 23:14:00 Cornelio [facility] PANEL LIPASE LEVEL 2022-04-16 23:14:00 [facility] ESTIM[facility] GFR 2022-04-16 23:14:00 [facility] BASIC METABOLIC PANEL 2022-04-14 22:54:00 Jeff[facility] ESTIMATED GFR 2022-04-14 22:54:00 Baranonima-Daca, Scientologist H ospital [place] POC GLUCOSE 2022-04-14 22:04:00 Puneet Lovelace [facility] CT ANGIOGRAM PE CHEST 2022-04-14 00:23:56 Fabiola [facility] IR VERTEBRO LUM UNI OR BALDO 2022-04-13 19:25:00 Jena Cool [facility] ECG 12-LEAD 2022-04-13 18:05:39 Greg Snyder [facility] BASIC METABOLIC PANEL 2022-04-13 10:16:00 Radu [facility] HC COMPLETE BLD COUNT 2022-04-13 10:16:00 Radu [facility] W/AUTO DIFF PROTHROMBIN TIME WITH INR 2022-04-13 10:16:00 Puneet Lovelace [facility] ESTIMATED GFR 2022-04-13 10:16:00 Puneet Lovelace Hamzah [facility] TYPE AND SCREEN 2022-04-13 10:16:00 Radu [facility] TROPONIN T 2022-04-13 02:33:00 Radu Puneet Hamzah [facility] HEMODIALYSIS 2022-04-13 01:59:31 CharlesDacmoira, Scientologist H ospital [place]arie TTE COMPLETE, WO CONTRAST, 2022-04-13 00:15:00 Puneet Lovelace ier [facility] W DOPPLER ([id number]) TROPONIN T 2022-04-12 23:10:00 Radu Puneet [facility] TROPONIN T 2022-04-12 20:19:00 Radu Puneet Hamzah [facility] HEMODIALYSIS 2022-04-11 13:51:20 Baranowska-Daca, Scientologist H ospital [place] HC COMPLETE BLD COUNT 2022-04-11 11:10:00 Travon [facility] W/AUTO DIFF BASIC METABOLIC PANEL 2022-04-11 11:10:00 Travon [facility] PARATHYROID HORMONE 2022-04-11 11:10:00 [facility] VITAMIN D 25 HYDROXY LEVEL 2022-04-11 11:10:00 Jena Cool [facility] DIGOXIN LEVEL 2022-04-11 11:10:00 [facility], Scientologist H ospital Valarie PHOSPHORUS LEVEL 2022-04-11 11:10:00 [facility] Valarie ESTIMATED GFR 2022-04-11 11:10:00 Jena Cool [facility] HC COMPLETE BLD COUNT 2022-04-10 09:45:00 Travon [facility] W/AUTO DIFF BASIC METABOLIC PANEL 2022-04-10 09:45:00 Travon [facility] PROTHROMBIN TIME WITH INR 2022-04-10 09:45:00 Travon [facility] ESTIMATED GFR 2022-04-10 09:45:00 Travon [facility] GASTROINTESTINAL PANEL 2022-04-09 22:47:00 Ellie Crespo [facility] XR CHEST 1 VW PORTABLE 2022-04-09 17:34:26 Travon [facility] HC COMPLETE BLD COUNT 2022-04-09 10:01:00 Travon [facility] W/AUTO DIFF BASIC METABOLIC PANEL 2022-04-09 10:01:00 Travon [facility] ESTIMATED GFR 2022-04-09 10:01:00 Travon [facility] HEMODIALYSIS 2022-04-08 14:21:31 [facility] HC COMPLETE BLD COUNT 2022-04-08 10:11:00 Travon [facility] W/AUTO DIFF COMPREHENSIVE METABOLIC 2022-04-08 10:11:00 Jena Cool [facility] PANEL ESTIMATED GFR 2022-04-08 10:11:00 Travon [facility] MRI LUMBAR SPINE WO 2022-04-08 02:13:34 Shaikh [facility] CONTRAST POTASSIUM LEVEL 2022-04-07 18:15:00 Jeffry, Scientologist H ospital [place] HEPATITIS B SURFACE 2022-04-07 13:46:00 Baranowskylee-Paris, [facility] ANTIGEN Valarie HEPATITIS B SURFACE 2022-04-07 13:46:00 [facility] ANTIBODY Valarie TROPONIN T 2022-04-07 13:43:00 Gutierrez Leal Ho spital HEMODIALYSIS 2022-04-07 13:16:08 Vinnie-Oma Tol[facility]ist H ospital [place] HC COMPLETE BLD COUNT 2022-04-07 11:21:00 Shaikh [facility] W/AUTO DIFF PROTHROMBIN TIME WITH INR 2022-04-07 11:21:00 [facility] COMPREHENSIVE METABOLIC 2022-04-07 11:21:00 Gutierrez Leal [facility] PANEL THYROID STIMULATING 2022-04-07 11:21:00 Shaikh [facility] HORMONE ESTIMATED GFR 2022-04-07 11:21:00 Gutierrez Leal spital ZZCOVID-19 ANTI-SPIKE IGG 2022-04-07 06:43:00 [facility]TIB[facility] TITER COVID-19 SEROLOGY PATIENT 2022-04-07 06:43:00 Shaikh [facility] SURVEILLANCE TROPONIN T 2022-04-07 06:43:00 Gutierrez Leal spital PROCALCITONIN 2022-04-07 06:43:00 Gutierrez Leal spital URINE CULTURE 2022-04-07 05:18:00 Ellie Crespo spital COVID-19 QUALITATIVE 2022-04-07 04:41:00 Ellie Crespo [facility] RT-PCR URINALYSIS SCREEN AND 2022-04-07 04:41:00 [facility] MICROSCOPY, WITH REFLEX TO CULTURE CT ABDOMEN PELVIS WO 2022-04-07 03:51:[address] [facility] CT LUMBAR SPINE WO 2022-04-07 03:49:20 Zak [facility] CONTRAST COMPREHENSIVE METABOLIC 2022-04-07 03:31:00 Ellie Crespo [facility] PANEL HC COMPLETE BLD COUNT 2022-04-07 03:31:00 [facility] W/AUTO DIFF ESTIMATED GFR 2022-04-07 03:31:00 [facility] 1 VW 2022-04-07 03:22:[address] [facility] spital ECG ED PRELIMINARY 2022-04-07 02:44:33 Zak [facility] INTERPRETATION ECG 12-LEAD 2022-04-07 02:40:03 Gutierrez Lealist Ho spital HEMODIALYSIS 2021-12-28 14:28:03 Baranowska-Daca, Scientologist H ospital [place] BASIC METABOLIC PANEL 2021-12-28 03:17:00 Baranowska-Daca, [facility] Valarie ESTIMATED GFR 2021-12-28 03:17:00 Baranowska-Daca, Scientologist H ospital [place] POC GLUCOSE 2021-12-28 02:29:00 Michelle Golden [facility] R IR VERTEBRO CERVICAL AND 2021-12-27 20:19:56 Michelle Golden [facility] THOR UNI OR BALDO R IR VERTEBROPLASTY EA ADDL 2021-12-27 20:19:56 Michelle Golden [facility] T OR L R MD AN ELECTIVE 2021-12-27 19:47:00 Devonte Schuster [facility] ENDOTRACHEAL AIRWAY HEMODIALYSIS 2021-12-26 20:14:38 Baranowska-Daca, Scientologist H [facility]spital [place] BLOOD CULTURE, AEROBIC & 2021-12-25 20:28:00 Nilesh Nation [facility] ANAEROBIC URINE CULTURE 2021-12-24 23:56:00 Baranowska-Daca, [facility] RENAL STONE PROTOCOL 2021-12-24 23:39:33 Baranowska-Daca, [facility] URINALYSIS SCREEN AND 2021-12-24 22:29:00 Jeffry, [facility] MICROSCOPY, WITH REFLEX TO Valarie CULTURE HEMODIALYSIS 2021-12-24 15:08:13 Baranonima-Dacmoira, [facility] o[facility] HC COMPLETE BLD COUNT 2021-12-23 09:55:00 [place], [facility] W/AUTO DIFF R BASIC METABOLIC PANEL 2021-12-23 09:55:00 Patitomonique, [facility] R PROTHROMBIN TIME WITH INR 2021-12-23 09:55:00 Krishna, Michelle Painting [facility] R URIC ACID LEVEL 2021-12-23 09:55:00 Baranowska-Daca, [facility] ospital Valarie DIGOXIN LEVEL 2021-12-23 09:55:00 Baranowska-Daca, [facility] ospital Valarie CORTISOL LEVEL, AM 2021-12-23 09:55:00 Baranowskylee-Paris, [facility] HEMOGLOBIN A1C 2021-12-23 09:55:00 Baranowska-Daca, [facility] ospital Valarie AMYLASE LEVEL 2021-12-23 09:55:00 Baranowska-Daca, [facility] o[facility]ital Valarie LIPASE LEVEL 2021-12-23 09:55:00 Baranowska-Daca, [facility] ESTIMATED GFR 2021-12-23 09:55:00 [place], Michelle [facility] R VITAMIN D 25 HYDROXY LEVEL 2021-12-22 09:33:00 Baranowskylee-Peea, [facility] PARATHYROID HORMONE 2021-12-22 09:33:00 Lindawskylee-Paris, [facility] PHOSPHORUS LEVEL 2021-12-22 09:33:00 Baranowska-Daca, [facility] XR SHOULDER 2+ VW RIGHT 2021-12-22 04:05:25 Vinnie-Paris, [facility] HEMODIALYSIS 2021-12-22 03:41:52 Baranowska-Daca, [facility] MRI LUMBAR SPINE WO 2021-12-21 15:10:25 Safia Scherer [facility] CONTRAST MRI THORACIC SPINE WO 2021-12-21 14:44:08 Safia Scherer [facility] CONTRAST BASIC METABOLIC PANEL 2021-12-21 10:43:00 Baranowska-Daca, [facility] ESTIMATED GFR 2021-12-21 10:43:00 Baranowska-Daca, [facility] BASIC METABOLIC PANEL 2021-12-20 22:26:00 Baranowska-Daca, [facility] ESTIMATED GFR 2021-12-20 22:26:00 Baranowska-Daca, [facility] HEMODIALYSIS 2021-12-20 14:03:25 Baranowska-Daca, [facility] ospital Valarie HC COMPLETE BLD COUNT 2021-12-20 09:43:[address] [facility] W/AUTO DIFF Tajdin COMPREHENSIVE METABOLIC 2021-12-20 09:43:00 [facility] PANEL Tajdin MAGNESIUM LEVEL 2021-12-20 09:43:00 [facility] Tajdin ESTIMATED GFR 2021-12-20 09:43:00 [facility] Tajdin TROPONIN T 2021-12-20 00:24:00 Cristofer Grimes [facility] HEPATITIS B SURFACE 2021-12-20 00:24:00 Vinnie-Paris [facility] ANTIGEN [facility] HEPATITIS B SURFACE AB, 2021-12-20 00:24:00 Barshaquillewska-Daca [facility] QUANTITATIVE Valarie HEMODIALYSIS 2021-12-19 22:22:37 Baranowska-Daca, [facility] ospital [facility] THYROID STIMULATING 2021-12-19 21:32:00 Angy Mccord [facility] HORMONE T4, FREE 2021-12-19 21:32:00 Angy Mccord Ho spital TROPONIN T 2021-12-19 21:32:00 Angy Mccord Ho spital COVID-19 QUALITATIVE 2021-12-19 21:22:00 Ray, [facility] RT-PCR CT LUMBAR SPINE WO 2021-12-19 20:55:41 Ray, [facility] CONTRAST CT THORACIC SPINE WO 2021-12-19 20:53:28 Ray, [facility] CONTRAST CT ANGIOGRAM PE CHEST 2021-12-19 20:45:21 Ray, [facility] ECG 12-LEAD 2021-12-19 19:35:11 Ray, [facility] XR THORACIC SPINE 2 VW 2021-12-19 19:17:36 Ray, [facility] HC COMPLETE BLD COUNT 2021-12-19 18:50:00 Ray, [facility] W/AUTO DIFF COMPREHENSIVE METABOLIC 2021-12-19 18:50:00 Ray, [facility] PANEL TROPONIN T 2021-12-19 18:50:00 Ray, [facility] ESTIMATED GFR 2021-12-19 18:50:00 Ray, [facility] LIPASE LEVEL 2021-12-19 18:50:00 Ray, [facility] ECG ED PRELIMINARY 2021-12-19 18:18:35 Ray, [facility] INTERPRETATION XR CHEST 2 VW 2021-11-14 16:02:54 [facility] Diabetic retinal eye 2019-12-11 06:00:00 Jourdan Barrios exam<sup>1</sup> Mammogram 2017-05-05 05:00:00 Aylin hunt Colonoscopy<sup>2</sup> 2016-11-17 06:00:00 Turner Barrios OPEN REDUCTION INTERNAL 2015-12-30 22:13:00 JohnsonJr washingtonew Turner Barrios FIXATION RADIUS INTRA-ARTICULAR W/3 FRAGMENTS 24172 (Right)<sup>1</sup> Repair of 2015-12-30 06:00:00 Aylin hunt wrist<sup>3</sup> skin cancer removed from 2011-10-22 00:00:00 Mem [facility] [place] arm Cholecystectomy [facility] [place] Procedure<sup>2</sup> [facility] Tubal ligation [facility] Eye operation [facility] Biopsy of breast [facility] bilateral radial [facility] kerototomy bilateral tubal ligation [facility] colonoscopy [facility] Skin cancer of [facility] arm<sup>4</sup> Plan of Care Planned Activity Planned Date Details Comments Source Future Scheduled 2022-09-01 HEPATITIS B VACCINES [facility] Test 11:07:43 (1 of 3 - 3-dose series) [code = HEPATITIS B VACCINES (1 of 3 - 3-dose series)] Future Scheduled 2022-09-01 COVID-19 VACCINE (#1) [facility] Test 11:07:43 [code = COVID-19 VACCINE (#1)] Future Scheduled 2022-09-01 65+ PNEUMOCOCCAL [facility] Test 11:07:43 VACCINE (1 - PCV) [code = 65+ PNEUMOCOCCAL VACCINE (1 - PCV)] Future Scheduled 2022-09-01 SHINGLES VACCINES (1 [facility] Test 11:07:43 of 2) [code = SHINGLES VACCINES (1 of 2)] Future Scheduled 2022-09-01 Screening for [facility] Test 11:07:43 malignant neoplasm of cervix (procedure) [code = 006781409] Future Scheduled 2022-09-01 COLONOSCOPY SCREENING [facility] Test 11:07:43 [code = COLONOSCOPY SCREENING] Future Scheduled 2022-09-01 BREAST CANCER [facility] Test 11:07:43 SCREENING [code = BREAST CANCER SCREENING] Encounters Start End Encounter Admission Attending Care Care Encounter Source Date/Time Date/Time Type Type Clinicians Facility Department ID 2022-03-13 Inpatient HARJEET King, JERSEYPM ENDO [id number] [facility] 09:00:[address] 2022-08-26 2022-08-27 [facility], 1.2.840.1 [id number] 9[address] [place] 00:00:00 00:00:00 Encounter KORINA 81674.1.1 208 [facility] 3.430.2.7 [facility].752469 .8 2022-08-26 2022-08-26 Travel 1.2.840.1 1.2.249.547 7034 [id number] Methodi 00:00:00 00:00:[address] 3.430.2.7 0.2.7.3.698 Ho spita .3.673005 084.8 l .8 2022-08-22 2022-08-22 [facility], 1.2.840.1 [id number] Methodi 00:00:00 00:00:00 Only Mary 33100.1.[address] [place] 3.430.2.7 Hosp naye .3.520780 l .8 2022-08-11 2022-08-11 [facility], 1.2.840.1 [id number] 5881 Methodi 12:00:00 12:15:00 Visit Mary 31092.1.[address] [place] 3.430.2.7 Hosp naye .3.306003 l .8 2022-08-11 2022-08-11 Travel 1.2.840.1 1.2.571.814 8419 [id number] Methodi 00:00:00 00:00:[address] 3.430.2.7 0.2.7.3.698 Ho spita .3.271062 084.8 l .8 2022-08-02 2022-08-02 Travel 1.2.840.1 1.2.283.515 0999 634261 Methodi 00:00:00 00:00:[address] 3.430.2.7 0.2.7.3.698 Ho spita .3.757493 084.8 l .8 2022-07-26 2022-07-26 [facility], 1.2.840.1 [id number] [place] 00:00:00 00:00:00 Encounter MARY 79600.1.1 [address] .3.907413 .8 2022-07-26 2022-07-26 [facility], 1.2.840.1 [id number] [place] 00:00:00 00:00:00 Encounter MARY 76179.1.[address] .3.848801 .8 2022-07-26 2022-07-26 [facility], 1.2.840.1 [id number] [place] 00:00:00 00:00:00 Encounter MARY 86420.1.[address] .3.420450 .8 2022-07-26 2022-07-26 Travel 1.2.840.1 1.2.098.160 2491 [id number] Methodi 00:00:00 00:00:[address] 3.430.2.7 0.2.7.3.698 Ho spita .3.769520 084.8 l .8 2022-07-11 2022-07-11 Office Jose Rafaelaniketfalguni, 1.2.840.1 [id number] 1776 Methodi 14:15:00 14:15:00 Visit Mary 45032.1.[address] 3.430.2.7 Hospit a .3.439344 l .8 2022-07-11 2022-07-11 Travel 1.2.840.1 1.2.504.364 6406 143820 Methodi 00:00:00 00:00:[address] 3.430.2.7 0.2.7.3.698 Ho spita .3.942401 084.8 l .8 2022-07-04 2022-07-04 Office [place], 1.2.840.1 [id number] 3745 Methodi 12:45:00 13:22:26 Visit Mary 14720.1.[address] [place] 3.430.2.7 Hosp naye .3.987696 l .8 2022-07-03 2022-07-03 Travel 1.2.840.1 1.2.310.974 2024 [id number] Methodi 00:00:00 00:00:[address] 3.430.2.7 0.2.7.3.698 Ho spita .3.406225 084.8 l .8 2022-06-24 2022-06-28 [facility] 1.2.840.1 [id number] Methodi 07:21:00 20:54:00 Encounter Maddison Wharton 93922.1.[address] 3.430.2.7 Hospit a .3.266160 l .8 2022-06-27 2022-06-27 Prep for Nehemiah, 1.2.840.1 [id number] 80724 67906 Methodi 00:00:00 00:00:00 Surgery Taylor D 15555.1.1 [address] 3.430.2.7 Hospit a .3.645258 l .8 2022-06-24 2022-06-24 Travel 1.2.840.1 1.2.441.073 5194 [id number] Methodi 00:00:00 00:00:[address] 3.430.2.7 0.2.7.3.698 Ho spita .3.940115 084.8 l .8 2022-06-14 2022-06-14 Outpatient LEONEL Conteh OUTD [id number] [facility] 04:58:00 04:58:00 Quentin 89 [facility] 2022-06-07 2022-06-07 Outpatient LEONEL Conteh OUTD [id number] [facility] 06:37:00 06:37:00 Quentin 64 [facility] 2022-05-20 2022-05-20 [facility] [id number] [facility] 00:00[facility]00 00:00:00 [facility] 2022-05-20 2022-05-20 [facility] [id number] 00:00:00 00:00:00 [facility] 2022-05-04 2022-05-04 Outpatient Armstrong_B [facility] [id number] [place] 00:00:00 00:00:00 [address] [facility] 2022-04-28 2022-04-29 Emergency Taylor Woodall 1.2.840 .1 [id number] Methodi 02:04:00 18:01:00 Diab Laura [address]013.1.[address] [facility].430.2.7 [facility], [place]roy .3.323958 l .8 2022-04-28 2022-04-28 Travel 1.2.840.1 1.2.414.928 6239 [id number] Methodi 00:00:00 00:00:[address] 3.430.2.7 0.2.7.3.698 Ho spita .3.186158 084.8 l .8 2022-04-19 2022-04-20 Outpatient nullFlavo [facility] 3 [id number] Memoria 21:20:00 04:59:59 r Medicine 56 l Carrillo Zhang n 2022-04-19 2022-04-20 Outpatient nullFlavo [facility] 3 [id number] Memoria 21:20:00 04:59:59 r Medicine 56 l Carrillo Zhang n 2022-04-19 2022-04-19 Outpatient Rodriguez, [facility] MG [id number] 16:20:00 23:59:59 Antonella N 56 2022-04-19 2022-04-19 Outpatient MHIE MHIE [id number] Memoria 16:20:00 16:20:00 56 l Denis 2022-04-16 2022-04-16 Emergency Avis 1.2.840.1 [id number] Methodi 17:10:00 22:30:[address] [place] 3.430.2.7 Hosp naye .3.738228 l .8 2022-04-16 2022-04-16 Travel 1.2.840.1 1.2.568.951 4849 [id number] Methodi 00:00:00 00:00:[address] 3.430.2.7 0.2.7.3.698 Ho spita .3.311986 084.8 l .8 2022-04-06 2022-04-15 Hospital Travon Porras T. 1.2.840.1 [id number] Methodi 21:20:00 13:07:00 Encounter Gutierrez Leal 80978.1.[address] Jena Coolyan 3.430.2.7 Hospita Puneet Lovelace .3.240013 l .8 2022-04-13 2022-04-13 Anesthesia Snyder, 1.2.840.1 [id number] Methodi 13:41:00 14:30:00 Event Greg 06302.1.[address] Pauline 3.430.2.7 Hospit a .3.719200 l .8 2022-04-06 2022-04-06 Travel 1.2.840.1 1.2.620.639 5609 002332 Methodi 00:00:00 00:00:[address] 3.430.2.7 0.2.7.3.698 Ho spita .3.808563 084.8 l .8 2022-03-08 2022-03-08 Outpatient Mic Warren HCAPM DAYS 0 [id number] [facility] 07:07:00 07:07:00 79 [facility] 2022-03-08 2022-03-08 Outpatient Mic Warren HCAPM HCAPM F94 [id number] [facility] 07:07:00 07:07:00 [facility] 2022-03-06 2022-03-08 Phone [facility] Qwjewt 3626 [id number] Memoria 15:25:04 04:59:59 Message r Medicine 17 l Carrillo davis 2022-03-06 2022-03-08 Phone nullFlavo [facility] Family 3467 [id number] Memoria 15:25:04 04:59:59 Message r Medicine 17 l Carrillo Zhang n 2022-03-06 2022-03-07 Outpatient [facility] MG [id number] 10:25:04 23:59:59 17 2022-03-03 2022-03-03 Emergency EM Chris Carter HCAPM POLLO LA00 [id number] [facility] 12:08:00 15:51:00 00 [facility] 2022-03-03 2022-03-03 Emergency EM Chris Carter HCAPM HCAPM [id number] [facility] 12:08:00 15:51:00 [facility] 2022-02-27 2022-02-27 Outpatient HARJEET King HCAPM ENDO [id number] [facility] 07:10:00 07:10:00 Adam 92 [facility] 2022-01-18 2022-01-18 Ambulatory nullFlavo [facility] 3 [id number] Memoria 15:15:00 15:15:00 Pre-Reg r Medicine 54 l Carrillo davis 2022-01-18 2022-01-18 Ambulatory nullFlavo [facility] 3 [id number] Memoria 15:15:00 15:15:00 Pre-Reg r Medicine 54 l Carrillo davis 2022-01-18 2022-01-18 Outpatient MHIE MHIE [id number] Memoria 10:15:00 10:15:00 55 [place] 2022-01-18 2022-01-18 Outpatient Rodriguez, [facility] [id number] 10:15:00 10:15:00 Antonella Davis 54 2022-01-16 2022-01-16 Outpatient MHIE MHIE [id number] Memoria 10:30:00 10:30:00 56 leonard Barrios 2022-01-16 2022-01-16 Outpatient MHIE MHIE [id number] Memoria 10:30:00 10:30:00 56 leonard Barrios 2022-01-05 2022-01-05 Patient Phuong Mcginnis 1.2.840.1 [id number] Methodi 00:00:00 00:00:[address] 3.430.2.7 Hospit a .3.341315 l .8 2021-12-30 2021-12-30 Office Ekeruo, 1.2.840.1 [id number] 7694 Methodi 10:15:00 11:21:59 Visit Mary 92555.1.[address] 3.430.2.7 Hospit a .3.780271 l .8 2021-12-30 2021-12-30 Travel 1.2.840.1 1.2.605.457 6279 [id number] Methodi 00:00:00 00:00:[address] 3.430.2.7 0.2.7.3.698 Ho spita .3.376747 084.8 l .8 2021-12-19 2021-12-28 [facility] Dean 1.2.840.1 1 [id number] Methodi 12:16:00 16:05:00 Encounter PatitoflorecitamoniqueMichelle blackburn 94511.1.[address] 3.430.2.7 Hospit a .3.704385 l .8 2021-12-27 2021-12-27 Anesthesia MimiRobert Dunbar 1.2.8 40.1 [id number] Methodi 13:07:00 14:43:00 Event Nishi Shelton 25935.1.[address] 3.430.2.7 Hospit a .3.255661 l .8 2021-12-26 2021-12-26 Telephone Jose Rafaelandrews, 1.2.840.1 [id number] 2100 [id number] Methodi 00:00:00 00:00:[address] 3.430.2.7 Hospit a .3.718546 l .8 2021-12-19 2021-12-21 Phone [facility] 5006 [id number] Memoria 17:07:02 05:59:59 Message r Medicine 16 l Carrillo davis 2021-12-19 2021-12-21 Phone nullFlavo [facility] Family 346Mariana [id number] Memoria 17:07:02 05:59:59 Message r Medicine 16 l Carrillo Zhang ryan 2021-12-19 2021-12-20 Outpatient [facility] [id number] 11:07:02 23:59:59 16 2021-12-19 2021-12-19 Travel 1.2.840.1 1.2.381.803 6673 [id number] Methodi 00:00:00 00:00:[address] 3.430.2.7 0.2.7.3.698 Ho spita .3.590906 084.8 l .8 2021-11-15 2021-11-15 [facility] 1.2.840.1 [id number] 0150 Methodi 16:30:00 16:34:07 Visit Scott 97932.1.[address] 3.430.2.7 Hospit a .3.779936 l .8 2021-11-14 2021-11-14 [facility], 1.2.840.1 [id number] 99164 Methodi 09:45:00 23:59:00 Encounter Scott 52258.1.[address] 3.430.2.7 Hospit a .3.922857 l .8 2021-11-14 2021-11-14 Travel 1.2.840.1 1.2.674.868 4665 [id number] Methodi 00:00:00 00:00:[address] 3.430.2.7 0.2.7.3.698 Ho spita .3.604548 084.8 l .8 2021-10-28 2021-10-30 Phone nullFlavo [facility] Family 3467 [id number] Memoria 19:33:53 05:59:59 Message r Medicine 15 l Carrillo Rameycora davis 2021-10-28 2021-10-30 Phone nullFlavo [facility] Family William [id number] Memoria 19:33:53 05:59:59 Message r Medicine 15 l Carrillo Rameycora davis 2021-10-28 2021-10-29 Outpatient MHMG MHMG [id number] 13:33:53 23:59:59 15 2021-10-19 2021-10-21 Phone nullFlavo [facility] 3467 [id number] Memoria 19:38:03 05:59:59 Message r Medicine 14 leonard Zhang n 2021-10-19 2021-10-21 Phone nullFlavo [facility] 3467 [id number] Memoria 19:38:03 05:59:59 Message r Medicine 14 leonard Zhang n 2021-10-19 2021-10-20 Outpatient MHMG MHMG [id number] 13:38:03 23:59:59 14 2021-10-17 2021-10-18 Outpatient nullFlavo [facility] 3 [id number] Memoria 21:15:00 05:59:59 r Medicine 53 leonard Zhang n 2021-10-17 2021-10-18 Outpatient nullFlavo [facility] 3 [id number] Memoria 21:15:00 05:59:59 r Medicine 53 leonard Zhang n 2021-10-17 2021-10-17 Outpatient Rodriguez, [facility] [id number] 15:15:00 23:59:59 Antonella Davis 53 2021-10-17 2021-10-17 Outpatient MHIE MHIE [id number] Memoria 15:15:00 15:15:00 54 leonard Denis 2021-09-20 2021-09-20 Office Ahmed, 1.2.840.1 [id number] Methodi 15:30:00 16:01:04 Visit Scott 99355.1.[address] 3.430.2.7 Hospit a .3.539791 l .8 2021-09-20 2021-09-20 Travel 1.2.840.1 1.2.436.597 6967 [id number] Methodi 00:00:00 00:00:[address] 3.430.2.7 0.2.7.3.698 Ho spita .3.670579 084.8 l .8 2021-09-12 2021-09-13 Between nullFlavo [facility] 3467 [id number] Memoria 14:18:24 14:18:24 Visit r Medicine 63 leonard PostVizcaino Vicente davis 2021-09-12 2021-09-13 Between nullFlavo [facility] 3467 [id number] Memoria 14:18:24 14:18:24 Visit r Medicine 62 l Carrillo davis 2021-09-12 2021-09-13 Outpatient MH[facility] [id number] 08:18:24 08:18:24 62 2021-09-12 2021-09-13 Between nullFlavo [facility] 3467 [id number] Memoria 00:56:47 00:56:47 Visit r Medicine 62 leonard davis 2021-09-12 2021-09-13 Between nullFlavo [facility] 3467 [id number] Memoria 00:56:47 00:56:47 Visit r Medicine 61 leonard davis 2021-09-11 2021-09-12 Outpatient MH[facility] [id number] 18:56:47 18:56:47 61 2021-09-09 2021-09-10 Outpatient nullFlavo [facility] 3 [id number] Memoria 20:00:00 05:59:59 r Medicine 52 leonard davis 2021-09-09 2021-09-10 Outpatient nullFlavo [facility] 3 [id number] Memoria 20:00:00 05:59:59 r Medicine 52 leonard davis 2021-09-09 2021-09-09 Outpatient Rodriguez, [facility] [id number] 14:00:00 23:59:59 Antonella Davis 52 2021-09-09 2021-09-09 Outpatient MHIE [facility] [id number] Memoria 14:00:00 14:00:00 53 leonard Barrios 2021-09-06 2021-09-08 Phone nullFlavo [facility] 3467 [id number] Memoria 21:38:38 05:59:59 Message r Medicine 13 leonard davis 2021-09-06 2021-09-08 Phone nullFlavo [facility] Family 3467 [id number] Memoria 21:38:38 05:59:59 Message r Medicine 13 leonard davis 2021-09-06 2021-09-07 Outpatient [facility] [id number] 15:38:38 23:59:59 13 2021-09-07 2021-09-07 Office Bam, 1.2.840.1 [id number] Methodi 11:00:00 11:44:58 Visit Mary 04418.1.[address] 3.430.2.7 Hospit a .3.075498 l .8 2021-09-07 2021-09-07 Travel 1.2.840.1 1.2.202.608 7682 [id number] Methodi 00:00:00 00:00:[address] 3.430.2.7 0.2.7.3.698 Ho spita .3.127199 084.8 l .8 2021-09-05 2021-09-06 Between nullFlavo [facility] Family 3467 [id number] Memoria 15:33:59 15:33:59 Visit r Medicine 59 l Carrillo Zhang ryan 2021-09-05 2021-09-06 Between nullFlavo [facility] Family 3467 [id number] Memoria 15:33:59 15:33:59 Visit r Medicine 59 l Carrillo Zhang ryan 2021-09-05 2021-09-06 Outpatient [facility] [id number] 09:33:59 09:33:59 59 2021-07-14 2021-07-26 Inpatient KRISHNA, [facility] [id number] [place] 00:00:00 00:00:00 MICHELLE [address] 2021-07-19 2021-07-19 Outpatient GC_EAH_Brow PRIV PRIV 140 [id number] [facility] 00:00:00 00:00:00 n_J [id number] Medica l 2021-07-13 2021-07-13 Outpatient MARITA, [facility] [id number] [place] 00:00:00 00:00:00 KRISTIAN [address] 2021-06-30 2021-06-30 Outpatient ADRIANA, [facility] [id number] 765 [place] 00:00:00 00:00:00 RAZIUDDIN [address] 2021-06-07 2021-06-07 Outpatient EKERUO, [facility] [id number] [place] 00:00:00 00:00:00 MARY 787 Method i 2021-06-07 2021-06-07 Outpatient DAOURA, [facility] [id number] 587 [place] 00:00:00 00:00:00 NILESH 546 Method i 2021-05-19 2021-05-26 Inpatient MATHIVANAN, [facility] 064 [id number] [place] 00:00:00 00:00:00 COURTNEY 275 Method i 2021-05-12 2021-05-12 Outpatient AHMED, [facility] [id number] [place] 00:00:00 00:00:00 RAZIUDDIN [address] [facility] 2021-05-11 2021-05-11 Outpatient EKERUO, [facility] [id number] [place] 00:00:00 00:00:00 MARY 640 [facility] 2021-05-06 2021-05-06 Outpatient EKERUO, [facility] [id number] [place] 00:00:00 00:00:00 MARY 435 [facility] 2021-05-06 2021-05-06 Outpatient EKERUO, [facility] [id number] [place] 00:00:00 00:00:00 MARY 537 [facility] 2021-05-03 2021-05-03 Outpatient EKERUO, [facility] [id number] [place] 00:00:00 00:00:00 MARY 709 [facility] 2021-04-08 2021-04-21 Inpatient SOLIPURAM, [facility] [id number] [place] 00:00:00 00:00:00 MICHELLE 685 [facility] 2021-03-09 2021-03-09 Outpatient AHMED, [facility] [id number] [place] 00:00:00 00:00:00 RAZIUDDIN 101 [facility] aiden 2021-02-24 2021-02-24 [facility] [id number] [place] 01:00:00 04:59:00 r Denis 59 l [place] Karen nn 2021-02-24 2021-02-24 [facility] [id number] [place] 01:00:00 04:59:00 r Denis 59 l [place] Karen nn 2021-02-23 2021-02-23 Outpatient AHMED, [facility] [id number] [facility] 20:00:00 23:59:00 RAZIUDDIN 2021-02-23 2021-02-23 Outpatient Ahmed, [facility] [id number] 20:00:00 23:59:00 Raziuddin 58 2021-02-10 2021-02-10 Outpatient AHMED, [facility] [id number] [place] 00:00:00 00:00:00 RAZ[address]UDDIN [address] 2021-02-03 2021-02-08 Inpatient MARY ALICE, [facility] [id number] [place] 00:00:00 00:00:00 COURTNEY [address] 2021-01-20 2021-01-20 Outpatient [facility] [id number] [place] 00:00:00 00:00:[address] 2021-01-18 2021-01-19 Outpatient [facility] 3 [id number] [place] 19:30:00 04:59:59 r Medicine 51 l [place] Zhang n 2021-01-18 2021-01-19 Outpatient [facility] 3 [id number] [place] 19:30:00 04:59:59 r Medicine 51 l Carrillo davis 2021-01-18 2021-01-18 Outpatient Rodriguez, [facility] [id number] 14:30:00 23:59:59 Antonella Davis 51 2021-01-18 2021-01-18 Outpatient [facility] [id number] [place] 14:30:00 14:30:00 51 leonard Barrios 2021-01-18 2021-01-18 Outpatient [facility] [id number] [address] [place] [address] 00:00:00 00:00:[address] 2021-01-14 2021-01-15 Between [facility] [id number] [place] 13:38:03 13:38:03 Visit r Medicine 57 l Carrillo davis 2021-01-14 2021-01-15 Between [facility] [id number] [place] 13:38:03 13:38:03 Visit r Medicine 57 l Carrillo davis 2021-01-14 2021-01-15 Outpatient [facility] [id number] 08:38:03 08:38:03 57 2021-01-12 2021-01-12 Outpatient ADRIANA [facility] [id number] [place] 00:00:00 00:00:00 RAZIUDDIN [address] 2020-12-31 2021-01-05 Inpatient MARY ALICE [facility] [id number] [place] 00:00:00 00:00:00 COURTNEY [address] 2020-12-17 2020-12-28 Inpatient MARY ALICE [facility] Vidya 2099 [id number] [place] 00:00:00 00:00:00 COURTNEY [address] 2020-10-11 2020-10-18 Inpatient MARY ALICE [facility] [id number] [place] 00:00:00 00:00:00 COURTNEY [address] 2020-09-15 2020-09-16 Outpatient [facility] 3 [id number] [place] 16:30:00 05:59:59 r Medicine 50 l Carrillo Zhang n 2020-09-15 2020-09-16 Outpatient nullFlavo [facility] 3 [id number] Memoria 16:30:00 05:59:59 r Medicine 50 l Carrillo Zhang n 2020-09-15 2020-09-15 Outpatient Rodriguez, MG MG [id number] 10:30:00 23:59:59 nAtonella N 50 2020-09-15 2020-09-15 Outpatient MHIE IE [id number] Memoria 10:30:00 10:30:00 50 l Denis 2020 2020-09-07 Inpatient SOLFLORECITAURACecelia, [facility] [id number] [place] 00:00:00 00:00:00 MICHELLE [address] 2020-08-13 2020-09-01 Inpatient SOLKARLA, [facility] [id number] [place] 00:00:00 00:00:00 MICHELLE [address] 2020-08-13 2020-08-14 Outpt Diag nullFlavo [facility] [id number] Memoria 18:10:00 04:59:00 Services r Outpatient 06 l Imaging Denis [place] 2020-08-13 2020-08-14 Outpt Diag nullFlavo [facility] [id number] Memoria 18:10:00 04:59:00 Services r Outpatient 06 l Imaging Deins [place] 2020-08-13 2020-08-13 Outpatient Amilcar, MH29 MH29 [id number] 13:10:00 23:59:00 Tyrell Davis 06 2020-08-11 2020-08-12 Between nullFlavo [facility] [id number] Memoria 17:58:19 17:58:19 Visit r Medicine 56 l Carrillo Zhang n 2020-08-11 2020-08-12 Between nullFlavo [facility] [id number] Memoria 17:58:19 17:58:19 Visit r Medicine 56 l Carrillo Vicente n 2020-08-11 2020-08-12 Outpatient [facility] [id number] 12:58:19 12:58:19 56 2020-08-03 2020-08-04 Outpatient nullFlavo [facility] 3 [id number] Memoria 15:15:00 04:59:59 r Medicine 49 l Carrillo Zhang n 2020-08-03 2020-08-04 Outpatient nullFlavo [facility] 3 [id number] Memoria 15:15:00 04:59:59 r Medicine 49 l Carrillo Zhang n 2020-08-03 2020-08-03 Outpatient Rodriguez, [facility] [id number] 10:15:00 23:59:59 Antonella Davis 49 2020-08-03 2020-08-03 Outpatient MHIE [facility] [id number] Memoria 10:15:00 10:15:00 50 leonard Barrios 2020-06-22 2020-06-23 Outpt Diag nullFlavo [facility] [id number] Memoria 17:02:00 04:59:00 Services r Outpatient 05 l Imaging Denis [place] 2020-06-22 2020-06-23 Outpt Diag nullFlavo [facility] [id number] Memoria 17:02:00 04:59:00 Services r Outpatient 05 l Imaging Denis [place] 2020-06-22 2020-06-22 Outpatient Amilcar MH29 [id number] 12:02:00 23:59:00 Tyrell Davis 05 2020-06-17 2020-06-17 Ambulatory nullFlavo [facility] [id number] Memoria 19:00:00 19:00:00 Pre-Reg r Nephrology 46 l Carrillo davis 2020-06-17 2020-06-17 Ambulatory nullFlavo [facility] [id number] Memoria 19:00:00 19:00:00 Pre-Reg r Nephrology 46 l Carrillo davis 2020-06-17 2020-06-17 Outpatient MHIE IE [id number] Memoria 14:00:00 14:00:00 47 leonard Denis 2020-06-17 2020-06-17 Outpatient [facility] [id number] 14:00:00 14:00:00 Daca, 47 Valarie J 2020-06-10 2020-06-10 Outpatient MHIE IE [id number] Memoria 11:15:00 11:15:00 48 leonard Denis 2020-06-10 2020-06-10 Outpatient MHIE [facility]IE [id number] Memoria 11:15:00 11:15:00 48 leonard Denis 2020-06-02 2020-06-03 [place] [id number] Memoria 19:45:00 04:59:59 r Nephrology 48 l Carrillo Zhang ryan 2020-06-02 2020-06-03 [place] [id number] Memoria 19:45:00 04:59:59 r Nephrology 48 l Carrillo Zhang ryan 2020-06-02 2020-06-02 Outpatient [facility] [id number] 14:45:00 23:59:59 Daca, 49 Valarie Haris 2020-06-02 2020-06-02 Outpatient IE IE [id number] Memoria 14:45:00 14:45:00 49 leonard Denis 2020-05-20 2020-05-20 Outpatient [facility] [id number] [place] 00:00:00 00:00:00 FABIOLA [address] 2020-03-23 2020-03-25 Phone nullFlavo MG [id number] Memoria 16:17:50 04:59:59 Message r Nephrology 12 leonard Rameycora davis 2020-03-23 2020-03-25 Phone nullFlavo MG [id number] Memoria 16:17:50 04:59:59 Message r Nephrology 12 l Carrillo Zhang ryan 2020-03-23 2020-03-24 Outpatient [facility] MG [id number] 11:17:50 23:59:59 12 2020-03-18 2020-03-19 [place] [id number] Memoria 19:00:00 04:59:59 r Nephrology 41 leonard davis 2020-03-18 2020-03-19 Outpatient nullFlavo [facility] [id number] Memoria 19:00:00 04:59:59 r Nephrology 41 l Carrillo davis 2020-03-18 2020-03-18 Outpatient Barshaquillewska- MG MG [id number] 14:00:00 23:59:59 Daca, 41 Valarie J 2020-03-18 2020-03-18 Outpatient MHIE IE [id number] Memoria 14:00:00 14:00:00 41 leonard Barrios 2020-03-08 2020-03-10 Phone nullFlavo MG [id number] Memoria 18:35:51 04:59:59 Message r Nephrology 11 leonard Barrios 2020-03-08 2020-03-10 Phone nullFlavo MG [id number] Memoria 18:35:51 04:59:59 Message r Nephrology 11 leonard Barrios 2020-03-08 2020-03-09 Outpatient [facility] MG [id number] 13:35:51 23:59:59 11 2020-02-11 2020-02-12 Outpatient nullFlavo [facility] Family 3 [id number] Memoria 15:15:00 04:59:59 r Medicine 45 l Carrillo Zhang ryan 2020-02-11 2020-02-12 Outpatient nullFlavo [facility] Family 3 [id number] Memoria 15:15:00 04:59:59 r Medicine 45 l Carrillo Zhang n 2020-02-11 2020-02-11 Outpatient Rodriguez, MG MG [id number] 10:15:00 23:59:59 Antonella Davis 45 2020-02-11 2020-02-11 Ambulatory nullFlavo [facility] 3 [id number] Memoria 15:15:00 15:15:00 Pre-Reg r Medicine 44 l Carrillo Zhang ryan 2020-02-11 2020-02-11 Ambulatory nullFlavo [facility] 3 [id number] Memoria 15:15:00 15:15:00 Pre-Reg r Medicine 44 l Carrillo Vicente davis 2020-02-11 2020-02-11 Outpatient MHIE IE [id number] Memoria 10:15:00 10:15:00 46 leonard Denis 2020-02-11 2020-02-11 Outpatient MHIE MHIE [id number] Memoria 10:15:00 10:15:00 45 leonard Barrios 2020-02-11 2020-02-11 Outpatient Rodriguez, MG MG [id number] 10:15:00 10:15:00 Antonella N 44 2020-02-05 2020-02-07 Phone nullFlavo MG [id number] Memoria 13:23:32 04:59:59 Message r Nephrology 10 leonard Vizcaino Vicente davis 2020-02-05 2020-02-07 Phone nullFlavo MG [id number] Memoria 13:23:32 04:59:59 Message r Nephrology 10 l Vizcaion Vicente davis 2020-02-05 2020-02-06 Outpatient MG MG [id number] 08:23:32 23:59:59 10 2020-02-05 2020-02-06 Between nullFlavo [facility] Family [id number] Memoria 14:14:54 14:14:54 Visit r Medicine 52 l aCrrillo Vicente davis 2020-02-05 2020-02-06 Between nullFlavo [facility] Family [id number] Memoria 14:14:54 14:14:54 Visit r Medicine 52 l Vizcaino Vicente davis 2020-02-05 2020-02-06 Outpatient MG MG [id number] 09:14:54 09:14:54 52 2020-02-05 2020-02-05 Outpatient MHIE IE [id number] Memoria 11:30:00 11:30:00 44 leonard Barrios 2020-02-05 2020-02-05 Outpatient MHIE IE [id number] Memoria 11:30:00 11:30:00 43 leonard Barrios 2020-02-02 2020-02-04 Phone nullFlavo [facility] Family [id number] Memoria 20:00:15 04:59:59 Message r Medicine 09 l Vizcaino Vicente davis 2020-02-02 2020-02-04 Phone nullFlavo [facility] Family [id number] Memoria 20:00:15 04:59:59 Message r Medicine 09 leonard Zhang ryan 2020-02-02 2020-02-03 Outpatient [facility] MG [id number] 15:00:15 23:59:59 09 2020-01-30 2020-02-01 Phone nullFlavo [facility] Family [id number] Memoria 17:18:28 04:59:59 Message r Medicine 08 leonard Zhang ryan 2020-01-30 2020-02-01 Phone nullFlavo [facility] Family [id number] Memoria 17:18:28 04:59:59 Message r Medicine 08 leonard Zhang ryan 2020-01-30 2020-02-01 Phone nullFlavo MG [id number] Memoria 13:26:55 04:59:59 Message r Nephrology 07 leonard Zhang ryan 2020-01-30 2020-02-01 Phone nullFlavo MG [id number] Memoria 13:26:55 04:59:59 Message r Nephrology 07 leonard Zhang ryan 2020-01-30 2020-01-31 Outpatient [facility] MG [id number] 12:18:28 23:59:59 08 2020-01-30 2020-01-31 Outpatient [facility]MG [facility] [id number] 08:26:55 23:59:59 07 2019-12-16 2019-12-17 Outpatient nullFlavo [facility] Family 3 [id number] Memoria 20:15:00 05:59:59 r Medicine 42 l Carrillo Zhang ryan 2019-12-16 2019-12-17 Outpatient nullFlavo [facility] Family 3 [id number] Memoria 20:15:00 05:59:59 r Medicine 42 l Carrillo Zhang ryan 2019-12-16 2019-12-16 Outpatient Rodriguez, [facility] MG [id number] 14:15:00 23:59:59 Antonella N 42 2019-12-16 2019-12-16 Outpatient MHIE MHIE [id number] Memoria 14:15:00 14:15:00 Satinder Barrios 2019-11-13 2019-11-15 Phone nullFlavo [facility] Family [id number] Memoria 14:22:27 05:59:59 Message r Medicine 06 leonard Zhang ryan 2019-11-13 2019-11-15 Phone nullFlavo [facility] Family [id number] Memoria 14:22:27 05:59:59 Message r Medicine 06 leonard Zhang n 2019-11-13 2019-11-14 Outpatient MG [facility] [id number] 08:22:27 23:59:59 06 2019-10-17 2019-10-19 Phone nullFlavo [facility] Family [id number] Memoria 16:06:04 05:59:59 Message r Medicine 05 leonard davis 2019-10-17 2019-10-19 Phone nullFlavo [facility] Family [id number] Memoria 16:06:04 05:59:59 Message r Medicine 05 leonard davis 2019-10-17 2019-10-18 Outpatient MG [facility] [id number] 10:06:04 23:59:59 05 2019-10-02 2019-10-03 Between nullFlavo MG [id number] Memoria 20:05:03 20:05:03 Visit r Nephrology 45 leonard Watson Denis 2019-10-02 2019-10-03 Between nullFlavo MG [id number] Memoria 20:05:03 20:05:03 Visit r Nephrology 45 l Walter Denis 2019-10-02 2019-10-03 Outpatient MG [facility] [id number] 14:05:03 14:05:03 45 2019-10-02 2019-10-03 [place] [id number] Memoria 20:45:00 05:59:59 r Nephrology 38 leonard Zhang ryan 2019-10-02 2019-10-03 [place] [id number] Memoria 20:45:00 05:59:59 r Nephrology 38 leonard Zhang ryan 2019-10-02 2019-10-02 Outpatient Baran[place]ska- MG [facility] [id number] 14:45:00 23:59:59 Noel Toledo 2019-10-02 2019-10-02 Outpatient [facility] [id number] Memoria 14:45:00 14:45:00 38 leonard Barrios 2019-09-26 2019-09-27 Between nullFlavo MG [id number] Memoria 00:07:10 00:07:10 Visit r Nephrology 43 l Walter Barrios 2019-09-26 2019-09-27 Between nullFlavo MG [id number] Memoria 00:07:10 00:07:10 Visit r Nephrology 43 leonard Barrios 2019-09-25 2019-09-26 Outpatient [facility] [id number] 18:07:10 18:07:10 43 2019-09-25 2019-09-25 Outpatient IE IE [id number] Memoria 09:00:00 09:00:00 39 leonard Barrios 2019-09-25 2019-09-25 Outpatient IE IE [id number] Memoria 09:00:00 09:00:00 39 leonard Denis 2019-09-16 2019-09-17 Between nullFlavo [facility] Family [id number] Memoria 21:47:12 21:47:12 Visit r Medicine 41 leonard Rameycora davis 2019-09-16 2019-09-17 Between nullFlavo [facility] Family [id number] Memoria 21:47:12 21:47:12 Visit r Medicine 41 leonard Vizcaino Vicente davis 2019-09-16 2019-09-17 Outpatient [facility] [id number] 15:47:12 15:47:12 41 2019-08-19 2019-08-20 Between nullFlavo [facility] Family [id number] Memoria 22:13:13 22:13:13 Visit r Medicine 40 leonard Zhang ryan 2019-08-19 2019-08-20 Between nullFlavo [facility] Family [id number] Memoria 22:13:13 22:13:13 Visit r Medicine 40 leonard Vizcaino Vicente davis 2019-08-19 2019-08-20 Outpatient [facility] [id number] 17:13:13 17:13:13 40 2019-08-15 2019-08-16 Outpatient nullFlavo [facility] Family 3 [id number] Memoria 14:45:00 04:59:59 r Medicine 40 leonard Rameycora davis 2019-08-15 2019-08-16 Outpatient nullFlavo [facility] Family 3 [id number] Memoria 14:45:00 04:59:59 r Medicine 40 leonard Vizcaino Vicente davis 2019-08-15 2019-08-15 Outpatient Rodriguez, MG [facility] [id number] 09:45:00 23:59:59 Antonella N 40 2019-08-15 2019-08-15 Outpatient MHIE MHIE [id number] Memoria 09:45:00 09:45:00 40 leonard Denis 2019-08-07 2019-08-07 Ambulatory nullFlavo [facility] Family 3 [id number] Memoria 16:00:00 16:00:00 Pre-Reg r Medicine 36 leonard Zhang n 2019-08-07 2019-08-07 Ambulatory nullFlavo [facility] Family 3 [id number] Memoria 16:00:00 16:00:00 Pre-Reg r Medicine 36 leonard Zhang n 2019-08-07 2019-08-07 Outpatient MHIE MHIE [id number] Memoria 11:00:00 11:00:00 36 leonard Denis 2019-08-07 2019-08-07 Outpatient Rodriguez, [facility]MG MG [id number] 11:00:00 11:00:00 Antonella N 36 2019-07-31 2019-08-01 [place] [id number] Memoria 15:00:00 04:59:59 r Nephrology 35 leonard Zhang n 2019-07-31 2019-08-01 [place] [id number] Memoria 15:00:00 04:59:59 r Nephrology 35 leonard Zhang n 2019-07-31 2019-07-31 Outpatient Rodriguez, MG MG [id number] 10:00:00 23:59:59 Antonella N 35 2019-07-31 2019-07-31 Outpatient MHIE IE [id number] Memoria 12:00:00 12:00:00 37 leonard Denis 2019-07-31 2019-07-31 Outpatient MHIE IE [id number] Memoria 12:00:00 12:00:00 37 leonard Denis 2019-07-31 2019-07-31 Outpatient MHIE MHIE [id number] Memoria 10:00:00 10:00:00 35 leonard Denis 2019-07-03 2019-07-05 Phone nullFlavo [facility] Family [id number] Memoria 15:15:06 04:59:59 Message r Medicine 04 leonard Zhang n 2019-07-03 2019-07-05 Phone nullFlavo [facility] Family [id number] Memoria 15:15:06 04:59:59 Message r Medicine 04 leonard davis 2019-07-03 2019-07-05 Phone nullFlavo MG [id number] Memoria 15:10:51 04:59:59 Message r Nephrology 03 leonard davis 2019-07-03 2019-07-05 Phone nullFlavo [facility] [id number] Memoria 15:10:51 04:59:59 Message r Nephrology 03 leonard davis 2019-07-03 2019-07-04 Outpatient MG MG [id number] 10:15:06 23:59:59 04 2019-07-03 2019-07-04 Outpatient MG MG [id number] 10:10:51 23:59:59 03 2019-07-03 2019-07-03 [place] [id number] Memoria 20:00:00 20:00:00 Pre-Reg r Nephrology 34 leonard davis 2019-07-03 2019-07-03 [place] [id number] Memoria 20:00:00 20:00:00 Pre-Reg r Nephrology 34 leonard davis 2019-07-03 2019-07-03 Outpatient [facility] [id number] Memoria 15:00:00 15:00:00 34 leonard Barrios 2019-07-03 2019-07-03 Outpatient [place]- MG [facility] [id number] 15:00:00 15:00:00 Angela Toledo 2019-06-29 2019-06-30 Between nullFlavo MG [id number] Memoria 20:15:16 20:15:16 Visit r Nephrology 34 leonard Barrios 2019-06-29 2019-06-30 Between nullFlavo MG [id number] Memoria 20:15:16 20:15:16 Visit r Nephrology 34 leonard Barrios 2019-06-29 2019-06-30 Outpatient MG MG [id number] 15:15:16 15:15:16 34 2019-06-11 2019-06-13 Phone nullFlavo MG [id number] Memoria 15:29:54 04:59:59 Message r Nephrology 02 leonard Barrios 2019-06-11 2019-06-13 Phone nullFlavo MG [id number] Memoria 15:29:54 04:59:59 Message r Nephrology 02 leonard Barrios 2019-06-11 2019-06-12 Outpatient [facility] MG [id number] 10:29:54 23:59:59 02 2019-06-12 2019-06-12 [place] [id number] Memoria 16:30:00 16:30:00 Pre-Reg r Nephrology 29 l Carrillo davis 2019-06-12 2019-06-12 [place] [id number] Memoria 16:30:00 16:30:00 Pre-Reg r Nephrology 29 leonard davis 2019-06-12 2019-06-12 [place] [id number] Memoria 16:15:00 16:15:00 Pre-Reg r Nephrology 30 leonard davis 2019-06-12 2019-06-12 [place] [id number] Memoria 16:15:00 16:15:00 Pre-Reg r Nephrology 30 leonard davis 2019-06-12 2019-06-12 Ambulatory nullFlavo [facility] 3 [id number] Memoria 15:15:00 15:15:00 Pre-Reg r Medicine 31 leonard davis 2019-06-12 2019-06-12 Ambulatory nullFlavo [facility] Family 3 [id number] Memoria 15:15:00 15:15:00 Pre-Reg r Medicine 31 leonard davis 2019-06-12 2019-06-12 Outpatient MHIE ADRIANIE [id number] Memoria 11:30:00 11:30:00 29 leonard Denis 2019-06-12 2019-06-12 [facility] MG [id number] 11:30:00 11:30:00 Otis Toledo 2019-06-12 2019-06-12 Outpatient MHIE MHIE [id number] Memoria 11:15:00 11:15:00 30 leonard Denis 2019-06-12 2019-06-12 Outpatient [place]- MG MG [id number] 11:15:00 11:15:00 Bob Toledo 2019-06-12 2019-06-12 Outpatient MHIE MHIE [id number] Memoria 10:15:00 10:15:00 31 leonard [place] 2019-06-12 2019-06-12 Outpatient Rodriguez, [facility] [id number] 10:15:00 10:15:00 Antonella N 2019-06-09 2019-06-10 Inpatient Chelsea [facility] TELE [id number] [place] 10:05:00 17:55:00 EDUIN [facility] 2019-05-12 2019-05-14 Outpatient Chelsea [facility] TELE [id number] [place] 21:36:00 19:00:00 EDUIN [facility] 2019-05-12 2019-05-13 Outpatient nullFlavo [facility]gent [id number] Memoria 20:40:00 04:59:59 r Care 33 l [facility] 2019-05-12 2019-05-13 Outpatient nullFlavo [facility] [id number] Memoria 20:40:00 04:59:59 r Care 33 l Lise [place] 2019-05-12 2019-05-12 Outpatient Van MG MG [id number] 15:40:00 23:59:59 Radha Gallardo Carlito chavez De 2019-05-12 2019-05-12 Outpatient MHIE IE [id number] Memoria 15:40:00 15:40:00 33 leonard Barrios 2019-03-27 2019-03-28 Outpatient nullFlavo [facility] Family 3 [id number] Memoria 15:15:00 04:59:59 r Medicine 32 l Carrillo davis 2019-03-27 2019-03-28 Outpatient nullFlavo [facility] 3 [id number] Memoria 15:15:00 04:59:59 r Medicine 32 l Carrillo davis 2019-03-27 2019-03-27 Outpatient Ronnyshaquillewska- MG MG [id number] 10:15:00 23:59:59 Philly [place] 2019-03-27 2019-03-27 Outpatient MHIE MHIE [id number] Memoria 10:15:00 10:15:00 32 leonard Barrios 2019-01-05 2019-01-06 Between nullFlavo [facility] Family [id number] Memoria 19:00:16 19:00:16 Visit r Medicine 29 leonard Zhang n 2019-01-05 2019-01-06 Between nullFlavo [facility] Family [id number] Memoria 19:00:16 19:00:16 Visit r Medicine 29 leonard Zhang n 2019-01-05 2019-01-06 Outpatient MG MG [id number] 14:00:16 14:00:16 29 2019-01-02 2019-01-03 Between nullFlavo MG [id number] Memoria 15:02:37 15:02:37 Visit r Nephrology 27 leonard Zhang n 2019-01-02 2019-01-03 Between nullFlavo MG [id number] Memoria 15:02:37 15:02:37 Visit r Nephrology 27 leonard Zhang n 2019-01-02 2019-01-03 Outpatient MG MG [id number] 10:02:37 10:02:37 27 2019-01-02 2019-01-03 [place] [id number] Memoria 18:45:00 04:59:59 r Nephrology 28 leonard Zhang n 2019-01-02 2019-01-03 [place] [id number] Memoria 18:45:00 04:59:59 r Nephrology 28 leonard Zhang n 2019-01-02 2019-01-03 Outpatient nullFlavo MG Family 3 [id number] Memoria 14:15:00 04:59:59 r Medicine 22 leonard davis 2019-01-02 2019-01-03 Outpatient nullFlavo MG Family 3 [id number] Memoria 14:15:00 04:59:59 r Medicine 22 loenard Zhang n 2019-01-02 2019-01-02 Outpatient [place]- MG MG [id number] 13:45:00 23:59:59 Reynold [place] 2019-01-02 2019-01-02 Outpatient Rodriguez, MG MG [id number] 09:15:00 23:59:59 Antonella Davis 22 2019-01-02 2019-01-02 Outpatient MHIE MHIE [id number] Memoria 13:45:00 13:45:00 Reynold Barrios 2019-01-02 2019-01-02 Outpatient MHIE MHIE [id number] Memoria 09:15:00 09:15:00 22 leonard Barrios 2018-12-31 2019-01-01 Between nullFlavo MG [id number] Memoria 23:59:47 23:59:47 Visit r Nephrology 26 leonard Zhang ryan 2018-12-31 2019-01-01 Between nullFlavo MG [id number] Memoria 23:59:47 23:59:47 Visit r Nephrology 26 leonard Zhang ryan 2018-12-31 2019-01-01 Outpatient [facility] [id number] 18:59:47 18:59:47 26 2018-12-27 2018-12-28 Between nullFlavo MG [id number] Memoria 22:00:33 22:00:33 Visit r Nephrology 24 leonard Zhang ryan 2018-12-27 2018-12-28 Between nullFlavo MG [id number] Memoria 22:00:33 22:00:33 Visit r Nephrology 24 leonard Zhang ryan 2018-12-27 2018-12-28 Outpatient [facility] [id number] 16:00:33 16:00:33 24 2018-12-27 2018-12-28 Between nullFlavo MG [id number] Memoria 04:48:44 04:48:44 Visit r Nephrology 23 leonard Zhang ryan 2018-12-27 2018-12-28 Between nullFlavo [facility] [id number] Memoria 04:48:44 04:48:44 Visit r Nephrology 23 leonard Zhang ryan 2018-12-26 2018-12-27 Outpatient [facility] [id number] 22:48:44 22:48:44 23 2018-11-14 2018-11-14 [place] [id number] Memoria 20:30:00 20:30:00 Pre-Reg r Nephrology 27 leonard Zhang ryan 2018-11-14 2018-11-14 [place] [id number] Memoria 20:30:00 20:30:00 Pre-Reg r Nephrology 27 leonard Zhang ryan 2018-11-14 2018-11-14 [place] [id number] Memoria 18:40:00 18:40:00 Pre-Reg r Nephrology 24 leonard davis 2018-11-14 2018-11-14 [place] [id number] Memoria 18:40:00 18:40:00 Pre-Reg r Nephrology 24 leonard davis 2018-11-14 2018-11-14 Outpatient MHIE MHIE [id number] Memoria 14:30:00 14:30:00 27 leonard RameyDenis 2018-11-14 2018-11-14 Outpatient [place]- MG MG [id number] 14:30:00 14:30:00 Cordell Toledo 2018-11-14 2018-11-14 Outpatient [place]- MG MG [id number] 14:30:00 14:30:00 Cordell Toledo 2018-11-14 2018-11-14 Outpatient MHIE MHIE [id number] Memoria 12:40:00 12:40:00 24 leonard RameyDenis 2018-11-14 2018-11-14 Outpatient [place]- MG MG [id number] 12:40:00 12:40:00 PeeYesi pizarro 2018-11-14 2018-11-14 Outpatient [place]- MG MG [id number] 12:40:00 12:40:00 PeeYesi pizarro 2018-11-07 2018-11-07 [place] [id number] Memoria 15:30:00 15:30:00 Pre-Reg r Internal 25 [facility] Denis Vizcaino 2018-11-07 2018-11-07 [place] [id number] Memoria 15:30:00 15:30:00 Pre-Reg r Internal 25 Narayan Vizcaino 2018-11-07 2018-11-07 Outpatient MHIE MHIE [id number] Memoria 09:30:00 09:30:00 25 leonard Denis 2018-11-07 2018-11-07 Outpatient MHMG MHMG [id number] 09:30:00 09:30:00 25 2018-07-11 2018-08-10 Ambulatory nullFlavo MHMG [id number] Memoria 12:45:00 12:45:00 Pre-Reg r Internal 23 [facility] Denis Vizcaino 2018-07-11 2018-08-10 [place] [id number] Memoria 12:45:00 12:45:00 Pre-Reg r Internal 23 leonard Nraayan Vizcaino 2018-07-11 2018-08-10 Outpatient MG MG [id number] 07:45:00 07:45:00 23 2018-07-18 2018-07-19 [place] [id number] Memoria 19:15:00 04:59:59 r Nephrology 26 l Carrillo Zhang ryan 2018-07-18 2018-07-19 [place] [id number] Memoria 19:15:00 04:59:59 r Nephrology 26 leonard Zhang ryan 2018-07-18 2018-07-19 [place] [id number] Memoria 18:00:00 04:59:59 r Nephrology 21 leonard Zhang ryan 2018-07-18 2018-07-19 [place] [id number] Memoria 18:00:00 04:59:59 r Nephrology 21 leonard Zhang ryan 2018-07-18 2018-07-18 [facility] [id number] 14:15:00 23:59:59 Daca, 26 [facility] J 2018-07-18 2018-07-18 [id number] 13:00:00 23:59:59 Daca, 21 Valarie J 2018-07-18 2018-07-18 Outpatient IE IE [id number] Memoria 14:15:00 14:15:00 26 leonard Denis 2018-07-18 2018-07-18 Outpatient MHIE IE [id number] Memoria 13:00:00 13:00:00 21 leonard Denis 2018-07-11 2018-07-11 Outpatient MHIE IE [id number] Memoria 07:45:00 07:45:00 23 leonard Denis 2018-06-11 2018-06-12 Outpatient nullFlavo [facility] Family 3 [id number] Memoria 18:30:00 04:59:59 r Medicine 20 leonard Zhang ryan 2018-06-11 2018-06-12 Outpatient nullFlavo [facility] Family 3 [id number] Memoria 18:30:00 04:59:59 r Medicine 20 leonard Zhang n 2018-06-11 2018-06-11 Outpatient Rodriguez, MHMG MG [id number] 13:30:00 23:59:59 Antonella N 20 2018-06-11 2018-06-11 Outpatient MHIE MHIE [id number] Memoria 13:30:00 13:30:00 20 leonard Denis 2018-01-10 2018-01-11 Outpatient nullFlavo [facility] [id number] Memoria 16:00:00 04:59:59 r Nephrology 20 leonard Zhang n 2018-01-10 2018-01-11 Outpatient nullFlavo [facility] [id number] Memoria 16:00:00 04:59:59 r Nephrology 19 leonard Zhang n 2018-01-10 2018-01-10 Outpatient [place]- [facility] [id number] 11:00:00 23:59:59 Daca, 19 Valarie J 2018-01-10 2018-01-10 Outpatient [place]- [facility] MG [id number] 11:00:00 23:59:59 Daca, 19 Valarie J 2018-01-10 2018-01-10 Outpatient MHIE MHIE [id number] Memoria 11:00:00 11:00:00 20 leonard Denis 2018-01-09 2018-01-10 Outpatient nullFlavo [facility] Family 3 [id number] Memoria 15:00:00 04:59:59 r Medicine 18 leonard Zhang n 2018-01-09 2018-01-10 Outpatient nullFlavo [facility] Family 3 [id number] Memoria 15:00:00 04:59:59 r Medicine 18 leonard Zhang n 2018-01-09 2018-01-09 Outpatient Rodriguez, [facility] [id number] 10:00:00 23:59:59 Antonella N 18 2018-01-09 2018-01-09 Outpatient Rodriguez, [facility] [id number] 10:00:00 23:59:59 Antonella N 18 2018-01-09 2018-01-09 Outpatient MHIE MHIE [id number] Memoria 10:00:00 10:00:00 18 leonard Barrios 2017-07-19 2017-07-19 Outpatient MHIE MHIE [id number] Memoria 10:40:00 10:40:00 17 leonard Denis 2017-07-19 2017-07-19 Outpatient MHIE MHIE [id number] Memoria 10:40:00 10:40:00 17 leonard Denis 2017-06-27 2017-06-27 Outpatient MHIE MHIE [id number] Memoria 11:30:00 11:30:00 17 leonard Barrios 2017-06-27 2017-06-27 Outpatient MHIE MHIE [id number] [facility]oria 11:30:00 11:30:00 17 leonard Denis 2017-03-01 2017-03-01 Outpatient MHIE MHIE [id number] [facility]oria 11:40:00 11:40:00 11 leonard Barrios 2017-03-01 2017-03-01 Outpatient MHIE MHIE [id number] [facility]oria 11:40:00 11:40:00 11 leonard Barrios 2016-12-26 2016-12-26 Outpatient MHIE MHIE [id number] [facility]oria 14:30:00 14:30:00 15 leonard Barrios 2016-12-26 2016-12-26 Outpatient MHIE MHIE [id number] [facility]oria 14:30:00 14:30:00 15 leonard Barrios 2016-11-27 2016-11-27 Outpatient MHIE MHIE [id number] [facility]oria 10:00:00 10:00:00 08 leonard Barrios 2016-11-27 2016-11-27 Outpatient MHIE MHIE [id number] [facility]oria 10:00:00 10:00:00 08 leonard Barrios 2016-11-17 2016-11-17 Bedded [facility]Flavo [facility] [id number] [facility]oria 11:48:35 14:30:00 Outpatient connie Barrios 13 l [place] Karen nn 2016-11-17 2016-11-17 Bedded [facility] [id number] Memoria 11:48:35 14:30:00 Outpatient connie Barrios 13 l [place] Karen nn 2016-11-17 2016-11-17 Outpatient LORENZA Smith MHSL [id number] 05:48:35 08:30:00 Reinaldo Ware 2016-11-09 2016-11-09 Outpatient MHIE MHIE [id number] [facility]oria 13:15:00 13:15:00 14 leonard Barrios 2016-11-09 2016-11-09 Outpatient MHIE MHIE [id number] [facility]oria 13:15:00 13:15:00 14 leonard Denis 2016-10-18 2016-10-18 Outpatient MHIE MHIE [id number] [facility]oria 09:30:00 09:30:00 12 leonard Denis 2016-10-18 2016-10-18 Outpatient MHIE MHIE [id number] [facility]oria 09:30:00 09:30:00 13 leonard Denis 2016-10-18 2016-10-18 Outpatient MHIE MHIE [id number] [facility]oria 09:30:00 09:30:00 12 leonard Denis 2016-10-18 2016-10-18 Outpatient MHIE MHIE [id number] [facility]oria 09:30:00 09:30:00 13 leonard Denis 2016-10-12 2016-10-12 Outpatient MHIE MHIE [id number] [facility]oria 10:20:00 10:20:00 09 leonard Denis 2016-10-12 2016-10-12 Outpatient MHIE MHIE [id number] [facility]oria 10:20:00 10:20:00 09 leonard Denis 2016-07-13 2016-07-13 Outpatient MHIE MHIE [id number] [facility]oria 13:00:00 13:00:00 04 leonard Denis 2016-07-13 2016-07-13 Outpatient MHIE MHIE [id number] [facility]oria 13:00:00 13:00:00 04 leonard Denis 2016-05-24 2016-05-24 Outpatient MHIE MHIE [id number] [facility] 11:15:00 11:15:00 06 leonard Denis 2016-05-24 2016-05-24 Outpatient MHIE MHIE [id number] [facility] 11:15:00 11:15:00 06 leonard Denis 2016-04-13 2016-05-13 OP Therapy nullFlavo SMR [id number] Memoria 13:00:00 04:59:00 Patients connie Stout 03 leonard Benji Denis 2016-04-13 2016-05-13 OP Therapy nullFlavo SMR [id number] Memoria 13:00:00 04:59:00 Patients r Girish 03 l Benji Denis 2016-04-13 2016-05-12 Outpatient Elizabeth 2.16.840. 2.16.840.1. 3 [id number] 08:00:00 23:59:00 Jose Francisco Blackburn [id number]. [id number] 03 3.615.55 5.55 2016-03-14 2016-04-13 OP Therapy nullFlavo SMR [id number] Memoria 17:39:00 04:59:00 Patients connie Stout 02 leonard Barrios 2016-03-14 2016-04-13 OP Therapy nullFlavo SMR [id number] Memoria 17:39:00 04:59:00 Patients connie Stout 02 leonard Barrios 2016-03-14 2016-04-12 Outpatient Johnson, 2.16.840. 2.16.840.1. 3 [id number] 12:39:00 23:59:00 Jose Francisco Blackburn [id number]. [id number] 02 3.615.55 5.55 2016-03-09 2016-04-08 OP Therapy nullFlavo SMR Sugar [id number] Memoria 19:00:00 04:59:00 [place] lenoard Barrios 2016-03-09 2016-04-08 OP Therapy nullFlavo SMR Sugar [id number] Memoria 19:00:00 04:59:00 Patients connie Burger leonard Barrios 2016-03-09 2016-04-07 Outpatient Johnosn, 2.16.840. 2.16.840.1. 3 [id number] 14:00:00 23:59:00 Jose Francisco Blackburn [id number]. [id number] 01 3.615.69 5.69 2016-03-13 2016-03-14 Outpt Diag nullFlavo [facility] [id number] Memoria 16:14:00 04:59:00 Services r Outpatient 04 l Imaging Denis [place] 2016-03-13 2016-03-14 Outpt Diag nullFlavo [facility] [id number] Memoria 16:14:00 04:59:00 Services r Outpatient 04 l Imaging [place] 2016-03-13 2016-03-13 [facility] 6[facility] [id number] 11:14:00 23:59:00 Jv [place] 2016-02-08 2016-03-09 OP Therapy nullFlavo SMR Sugar [id number] Memoria 19:00:00 04:59:00 Patients r [place] 00 leonard Barrios 2016-02-08 2016-03-09 OP Therapy nullFlavo [facility] Sugar [id number] Memoria 19:00:00 04:59:00 Patients r [place] 00 leonard Barrios 2016-02-08 2016-03-08 Outpatient Elizabeth 2.16.840. 2.16.840.1. 3 [id number] 14:00:00 23:59:00 Jose Francisco Blackburn [id number]. [id number] 00 3.615.69 5.69 2016-03-02 2016-03-02 Outpatient IE IE [id number] Memoria 10:20:00 10:20:00 01 leonard Denis 2016-03-02 2016-03-02 Outpatient MHIE MHIE [id number] Memoria 10:20:00 10:20:00 01 leonard Barrios 2016-02-29 2016-03-01 Outpt Diag nullFlavo [facility] [id number] Memoria 14:59:00 04:59:00 Services r Outpatient 03 l Imaging Denis [place] 2016-02-29 2016-03-01 Outpt Diag nullFlavo [facility] [id number] Memoria 14:59:00 04:59:00 Services r Outpatient 03 l Imaging Denis [place] 2016-02-29 2016-02-29 Outpatient [facility] 28 [id number] 09:59:00 23:59:00 [place] 2016-01-20 2016-01-21 Outpt Diag nullFlavo [facility] [id number] Memoria 18:11:00 04:59:00 Services r Outpatient 01 l Imaging Denis [place] 2016-01-20 2016-01-21 Outpt Diag nullFlavo [facility] [id number] Memoria 18:11:00 04:59:00 Services r Outpatient 01 l Imaging Denis [place] 2016-01-20 2016-01-20 Outpatient [facility] 29 [id number] 13:11:00 23:59:00 [place] 2015-12-30 2015-12-30 Outpatient nullFlavo [facility] [id number] Memoria 12:50:31 19:25:00 r leonard Denis 2015-12-30 2015-12-30 Outpatient 2.16.840. 2.16.840.1. 3 [id number] Memoria 12:50:31 19:25:00 1.864356. [id number] l 3.2081.20 81.2000 Vicente n [facility] 2015-12-30 2015-12-30 Outpatient nullFlavo [facility] [id number] Memoria 12:50:31 19:25:00 r leonard Barrios 2015-11-30 2015-12-01 Outpt Diag nullFlavo [facility] [id number] Memoria 12:58:00 05:59:00 Services r Outpatient 00 l Imaging Denis [place] 2015-11-30 2015-12-01 Outpt Diag nullFlavo [facility] [id number] Memoria 12:58:00 05:59:00 Services r Outpatient 00 l Imaging [place] 2015-11-30 2015-11-30 Outpatient Marsha Lazo 29 [id number] 06:58:00 23:59:00 [place] 00 2015-11-19 2015-11-19 Outpatient MHIE MHIE [id number] [facility]oria 10:15:00 10:15:00 02 [place] 2015-11-19 2015-11-19 Outpatient MHIE MHIE [id number] Memoria 10:15:00 10:15:00 02 leonard Denis 2015-09-02 2015-09-02 Outpatient MHIE MHIE [id number] [facility]oria 11:30:00 11:30:00 00 leonard Denis 2015-09-02 2015-09-02 Outpatient MHIE MHIE [id number] Memoria 11:30:00 11:30:00 00 leonard Barrios 2013-12-18 2013-12-18 Outpatient nullFlavo [facility] [id number] Memoria 01:16:00 05:59:00 r Denis [id number] l [place] 1 [facility] 2013-12-18 2013-12-18 Outpatient nullFlavo [facility] [id number] Memoria 01:16:00 05:59:00 r Denis [id number] [place] 1 [facility] 2013-12-17 2013-12-17 Outpatient [facility] 2.16.840. 2.16.840. 1. [id number] 19:16:00 23:59:00 Yusef 1.065315. [id number] Bernadette 3.615.0.1 5.0.710 20 7470-02-26 2013-12-17 Outpatient nullFlavo [id number] Memoria 19:16:00 19:16:00 r [place] 01 l Denis 2013-12-17 2013-12-17 Outpatient nullFlavo [id number] Memoria 19:16:00 19:16:00 r [place] 01 l [place] 2013-12-02 2013-12-02 Outpatient nullFlavo [id number] Memoria 19:43:00 19:43:00 r [place] 00 l [place] 2013-12-02 2013-12-02 Outpatient nullFlavo [id number] Memoria 19:43:00 19:43:00 r [place] 00 l [...] ECG of 28-APR-2022 02:20,-QRS axis shifted right- Scientologist EqqwwcfcAXJI-SxS-1 (COVID-19) RNA [Presence] in Respiratory specimen by DANIEL with probe [id number] 04:29:38 Test Item Value Reference Range Interpretation Comments SARS-CoV-2 (COVID-19) RNA Not detected [Presence] in Respiratory specimen by DANIEL with probe detection (test code = 17100-3) Whether patient is employed in a Unknown healthcare setting (test code = 50454-0) Whether the patient has symptoms Unknown related to condition of interest (test code = 59835-3) Whether the patient was Unknown hospitalized for condition of interest (test code = 06368-2) Whether the patient was admitted Unknown to intensive care unit (ICU) for condition of interest (test code = 78513-7) Whether patient resides in a Unknown congregate care setting (test code = 13353-5) status (test code = Unknown 36123-5) Date and time of symptom onset Unknown (test code = 75619-7) [facility]athy[facility] [id number] 17:49:00 Test Item Value Reference Interpretation Comments [...] = Performing RAC) Organization Information: Site ID: A Name: [facility] Address: [address] [place] [id number] Director: Yusef Boyce Lab Abnormal Interpretation (test code = 88512-8) [facility] [id number] 17:49:00 Test Item Value Reference Range Interpretation Comments TSH (test See_Comment [Automated mes hermes] code = The system whic h 3016-3) generated this result transmit yahir reference range : 0.40 - 4.50 mIU /L. The reference r edy was not used to interpret this result as normal/abnormal . GUICHO (test FASTING:NO FASTING: code = GUICHO) NO RAC (test Performing code = RAC) Organization Information: Site ID: RGA Name: [facility] Address: [address] [place] [id number] Director: Yusef Boyce [facility] 25 hydroxy [id number] 17:49:00 Test Item Value Reference Range Interpretation Comments Vitamin D, 82 ng/mL 30-100 Vitamin D Statu s 25-hydroxy (test 25-OH Vitam in D: code = 1988-12) Deficiency: < 20 ng/mLInsufficie ncy : 20 [...] please refer to [email or web address] [email or web address] uestDiagnostics .co m/faq/KHK510 (T his link is being provided for informational/e gini ational purpose s only.) GUICHO (test code = FASTING:NO FASTING: GUICHO) NO RAC (test code = Performing RAC) Organization Information: Site ID: RGA Name: [facility] Address: [address] [place] [id number] Director: Yusef Boyce 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 Interpretation (test Abnormal code = 01327-6) [facility] Complete, (w Contrast, Strain and 3D if needed)2022-06-26 14:28:07 Test Item Value Reference Interpretation Comments Range RA pressure (test mmHg code = 5602172053) EF (test code = 50 % 54-74 A 4513551839) IVS,d (test code = 0.92 cm 0.6-0.9 A 1719603767) IVS s 2D (test code 1.08 cm = 8693530280) LVPWD,d (test code = 0.93 cm 0.60-1.19 5224660588) LVPW s PLAX (test 1.13 cm code = 4235673184) LV,s (test code = 2.94 cm 9725423957) LVOT Diam,S (test 1.98 cm code = 5050162007) LV BURGESS VOL (test 66.04 ml 46-106 code = 9949177035) LV SYS VOL (test 33.32 ml 14-42 code = 8549203319) MV Peak E Jonathan (test 1.61 m/s code = 6602032142) MV Peak A Jonathan (test 0.58 m/s code = 9377817392) E/A ratio (test code See_Comment A [Autom ated = 1558818323) message] The system which generated this result transmitted reference range : <=0.8. The reference range was not used to interpret this result as normal/abnormal . E wave decelartion See_Comment A [Automat ed time (test code = message] T he 2124795635) system which generated this result transmitted reference range : 200 msec. The reference range was not used to interpret this result as normal/abnormal . LV,d (test code = 3.90 cm 3189850031) IVS/LVPW,2D (test code = 2025406925) LV EF,2D (test code 57.26 % = 2611250630) LV FS Cube 2D (test code = 8141177364) LV FS Teich 2D (test code = 4688678704) LV SV Teich 2D (test 32.73 ml code = 5414522400) LV Vol s Teich PSAX 33.32 ml (test code = 8289824918) LVOT stroke volume 0.46 cm3 (test code = 9684022779) Left Atrium 5.30 cm See_Comment A [Automated Dimension Anterior message] The (test code = system which 2684721498) generated this result transmitted reference range : <=3.8. The reference range was not used to interpret this result as normal/abnormal . LA Vol MOD A4C (test 130.09 ml code = 2745966521) LA area s A4C (test 36.52 cm2 code = 3370830363) LVOT area (test code 3.08 cm2 = 7733155607) LVOT Vmax (test code 0.85 m/s = 7178931065) AoV Mean PG (test See_Comment [Automate d code = 9872340093) message] The system which generated this result transmitted reference range : 20 mmHg. The reference range was not used to interpret this result as normal/abnormal . AoV Peak PG (test mmHg code = 3055737707) AV LVOT peak mmHg gradient (test code = 4095846072) AoV Area, Vmax (test 1.94 cm2 See_Comment [Autom ated code = 8434025057) message] The system which generated this result transmitted reference range : >=1.5. The reference range was not used to interpret this result as normal/abnormal . LVOT VTI (CM) (test 15.00 cm code = 3740210790) AoV Vmax (test code 1.35 m/s = 1155966557) AoV Vmn (test code = 0.82 m/s 9450201068) AoV Area, VTI (test 2.30 cm2 code = 1181560630) LVOT CO (test code = 4.72 l/min 2209776136) LVOT HR for LVOT CO bpm (test code = 1132590768) Velocity Ratio 0.63 m/s (V1/V2) (test code = 4689) MV mean gradient See_Comment [Automated (test code = message] The 4198209475) system which generated this result transmitted reference range : 5 mmHg. The reference range was not used to interpret this result as normal/abnormal . MR peak grad (test mmHg code = 7477658656) MV stenosis pressure 30.12 ms See_Comment [Autom ated 1/2 time (test code message] The = 9051096316) system which generated this result transmitted reference range : <=150. The reference range was not used to interpret this result as normal/abnormal . MV E A ratio (test code = 5425512055) MV valve area p 1/2 7.30 cm2 method (test code = 2494460614) MV VTI Tips (test 0.15 m code = 7145569445) MV Vmax (test code = 0.72 m 9117994637) RVSP (test code = See_Comment A [Automate d 4307599759) message] The system which generated this result transmitted reference range : 40.00 mmHg. The reference range was not used to interpret this result as normal/abnormal . TR pk grad (test mmHg code = 0728952802) TR Vpeak (test code 2.85 m/s = 9131878385) RVSP (TR) (test code mmHg = 7342878494) RVOT Vmax (test code 0.44 m/s = 8944880404) PV Mean Grad (test mmHg code = 8812941439) PV Pk Grad (test See_Comment [Automated code = 4670935698) message] The system which generated this result transmitted reference range : 36 mmHg. The reference range was not used to interpret this result as normal/abnormal . PV VTI (test code = 0.17 m 5463961258) RVOT pk grad (test mmHg code = 7258850329) PV VMAX (test code = 1.05 m/s See_Comment [Autom ated 6137055887) message] The system which generated this result transmitted reference range : <=3. The reference range was not used to interpret this result as normal/abnormal . PV Vmn (test code = 6078613431) Ao Root Diameter 2.95 cm See_Comment [Automated (test code = message] The 5585628351) system which generated this result transmitted reference range : <=3.99. The reference range was not used to interpret this result as normal/abnormal . Ao Root Diameter 2.95 cm (test code = 5552028567) Ascending aorta 2.58 cm (test code = 7078415590) Pred METS R1 (test code = 7662260631) Pred Exer Dur R1 (test code = 3765464847) MV Decel slope (test 15.54 m/s2 code = 8034134126) LVPW pct thck PLAX 20.67 % (test code = 5398736278) LV vol s cube 2D 25.42 ml (test code = 5280089550) LV vol d cube 2D 59.47 ml (test code = 6907218673) LV SV Cube 2D (test 34.05 ml code = 7875849296) IVS pct thck PLAX 17.04 % (test code = 7108902795) Calc MPHR (test code bpm = 4190610523) 85 of MPHR (test code = 6854207096) RVOT VTI (test code 0.08 m = 0035569896) RVOT Vmn (test code 0.30 m/s = 7901840786) RVOT mean grad (test mmHg code = 6901604604) MAX Pred HR (test code = 5340999455) LVOT mean grad (test mmHg code = 4642167845) Aov area Vmn (test 2.31 cm2 code = 6946585674) MV AE ratio (test code = 8859250176) LVOT Vmn (test code = 0890388312) MR Vmax (test code = 4.65 m/s 3278160455) AoV VTI (test code = 0.20 m 0667595173) LVOT VTI (test code 0.15 m = 7291832935) GUICHO (test code = GUICHO) Left Ventricle: [...] artifact. Lab Interpretation Abnormal (test code = 93633-3) [place] VoARS-CoV-2 (COVID-19) RNA [Presence] in Respiratory specimen by DANIEL with probe [id number] 19:34:22 Test Item Value Reference Range Interpretation Comments SARS-CoV-2 (COVID-19) RNA [Presence] Detected in Respiratory specimen by DANIEL with probe detection (test code = 22014-3) Whether patient is employed in a Unknown healthcare setting (test code = 24343-1) Whether the patient has symptoms Unknown related to condition of interest (test code = 53084-1) Whether the patient was hospitalized Unknown for condition of interest (test code = 91183-5) Whether the patient was admitted to Unknown intensive care unit (ICU) for condition of interest (test code = 08426-4) Whether patient resides in a Unknown congregate care setting (test code = 65837-0) status (test code = Unknown 13828-8) Date and time of symptom onset (test Unknown code = 47809-8) [facility] METABOLIC [id number] 16:39:00 Test Item Value Reference Range Interpretation [...] = 8.8 mg/dL 8.0-10.5 N CA) PROTHROMBIN [id number] 16:33:00 Test Item Value Reference Range Interpretation [...] (to prevent recurrent infar ct). CBC W/AUTO [id number] 16:23:00 Test Item Value Reference Range Interpretation [...] code NO = MDIFF) Hepatitis B surface [id number] 21:36:32 Test Item Value Reference Range Interpretation Comments Hep B S Ab (test code <8.0 See_Comment [Auto mated = 79149-2) message] The system which generated this result transmit yahir reference range : <8.0 mIU/mL. Th e reference range was not used to interpret this result as normal/abnormal . 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 Th e reference range was not used to interpret this result as normal/abnormal . GUICHO (test code = GUICHO) [place] [employer] Operator ID - DB Lab Interpretation Normal (test code = 42387-4) [facility] [id number] 21:36:32 Test Item Value Reference Range Interpretation Comments HEPATITIS B SURFACE ANTIBODY < mIU/mL <8.0 (BEAKER) (test code = 647) [place] [employer] Operator ID - DBHepatitis B surface [id number] 21:24:22 Test Item Value Reference Range Interpretation Comments Hepatitis B surface Nonreactive Nonreactive antigen (test code = 5195-3) GUICHO (test code = GUICHO) Specimen is considered negative for HBsAg. Lab Interpretation (test Normal code = 78185-7) [facility] [id number] 21:24:22 Test Item Value Reference Range Interpretation Comments Hepatitis B surface Nonreactive Nonreactive antigen (test code = 5195-3) GUICHO (test code = GUICHO) Specimen is considered negative for HBsAg. Lab Interpretation (test Normal code = 91695-2) [facility] [id number] 21:24:22 Test Item Value Reference Range Interpretation Comments HEPATITIS B SURFACE ANTIGEN (2) Nonreactive Nonreactive (BEAKER) (test code = 2585) Specimen is considered negative for HBsAg.Transthoracic Echocardiogram Complete, (w Contrast, Strain and 3D if needed)2022-04-13 13:23:07 Test Item Value Reference Interpretation Comments Range EF (test code = 66 % 54-74 6002878458) IVS,d (test code = 1.03 cm 0.6-0.9 A 3305512421) LVPWD,d (test code = 1.27 cm 0.60-1.19 A 8758739069) LV,s (test code = 2.56 cm 4294084031) LVOT Diam,S (test 2.01 cm code = 0445566528) LV BURGESS VOL (test 69.20 ml 46-106 code = 0442176873) LV SYS VOL (test 23.74 ml 14-42 code = 3152342259) MV Peak E Jonathan (test 1.20 m/s code = 9531426264) MV Peak A Jonathan (test 0.47 m/s code = 5477060152) E/A ratio (test code See_Comment A [Autom ated = 4971165150) message] The system which generated this result transmitted reference range : <=0.8. The reference range was not used to interpret this result as normal/abnormal . E wave decelartion See_Comment A [Automat ed time (test code = message] T he 0840062842) system which generated this result transmitted reference range : 200 msec. The reference range was not used to interpret this result as normal/abnormal . LV,d (test code = 3.98 cm 1987913939) IVS/LVPW,2D (test code = 4815792340) LV EF,2D (test code 73.32 % = 1522015594) LV FS Cube 2D (test code = 6967406961) LV FS Teich 2D (test code = 6889363130) LV SV Teich 2D (test 45.46 ml code = 7493395044) LV Vol s Teich PSAX 23.74 ml (test code = 8603045811) LVOT stroke volume 0.35 cm3 (test code = 8632603675) Left Atrium 4.52 cm See_Comment A [Automated Dimension Anterior message] The (test code = system which 1916765509) generated this result transmitted reference range : <=3.8. The reference range was not used to interpret this result as normal/abnormal . LA Vol MOD A4C (test 83.62 ml code = 9207865928) LA area s A4C (test 28.59 cm2 code = 5540719555) LA Ao Ratio Mmode (test code = 0280558967) LVOT area (test code 3.17 cm2 = 4747267184) LVOT Vmax (test code 0.62 m/s = 9708887953) AoV Mean PG (test See_Comment [Automate d code = 3520996595) message] The system which generated this result transmitted reference range : 20 mmHg. The reference range was not used to interpret this result as normal/abnormal . AoV Peak PG (test mmHg code = 2599449193) AV LVOT peak mmHg gradient (test code = 9350941874) AoV Area, Vmax (test 2.00 cm2 See_Comment [Autom ated code = 3465742483) message] The system which generated this result transmitted reference range : >=1.5. The reference range was not used to interpret this result as normal/abnormal . LVOT VTI (CM) (test 11.00 cm code = 4092444468) AoV Vmax (test code 0.98 m/s = 6138308767) AoV Vmn (test code = 0.65 m/s 6759804278) AoV Area, VTI (test 2.42 cm2 code = 1104910935) Velocity Ratio 0.63 m/s (V1/V2) (test code = 4689) MR peak grad (test mmHg code = 5997226205) MV stenosis pressure 31.00 ms See_Comment [Autom ated 1/2 time (test code message] The = 8297322669) system which generated this result transmitted reference range : <=150. The reference range was not used to interpret this result as normal/abnormal . MV E A ratio (test code = 2059189752) MV valve area p 1/2 7.10 cm2 method (test code = 3641942469) E prime lat (test code = 5128285482) E katherine sept (test code = 2844530499) RVSP (test code = See_Comment A [Automate d 6062728105) message] The system which generated this result transmitted reference range : 40.00 mmHg. The reference range was not used to interpret this result as normal/abnormal . RA pressure (test mmHg code = 6800515060) TR pk grad (test mmHg code = 9485782004) TR Vpeak (test code 3.51 m/s = 5236307267) RVSP (TR) (test code mmHg = 0701088885) RVOT Vmax (test code 0.46 m/s = 0391057974) PV Pk Grad (test See_Comment [Automated code = 1683431797) message] The system which generated this result transmitted reference range : 36 mmHg. The reference range was not used to interpret this result as normal/abnormal . RVOT pk grad (test mmHg code = 0669826049) PV VMAX (test code = 1.15 m/s See_Comment [Autom ated 4206709984) message] The system which generated this result transmitted reference range : <=3. The reference range was not used to interpret this result as normal/abnormal . Ao root annulus 2.82 cm (test code = 1413404665) Ao Root Diameter 3.23 cm See_Comment [Automated (test code = message] The 9628824762) system which generated this result transmitted reference range : <=3.99. The reference range was not used to interpret this result as normal/abnormal . Ao Root Diameter 3.23 cm (test code = 2257742800) Ascending aorta 3.69 cm (test code = 9887135734) Pred METS R1 (test code = 9727540311) Pred Exer Dur R1 (test code = 7779322819) MV Decel slope (test 11.26 m/s2 code = 2384750007) LV vol s cube 2D 16.83 ml (test code = 5340077877) LV vol d cube 2D 63.08 ml (test code = 1798919609) LV SV Cube 2D (test 46.25 ml code = 6310567902) Calc MPHR (test code bpm = 3723319670) 85 of MPHR (test code = 3798212280) MAX Pred HR (test code = 0551106178) LVOT mean grad (test mmHg code = 2085953819) Aov area Vmn (test 1.92 cm2 code = 7390915752) MV AE ratio (test code = 8507304013) LVOT Vmn (test code = 7421146941) MR Vmax (test code = 4.22 m/s 9146015082) AoV VTI (test code = 0.15 m 8932487551) LVOT VTI (test code 0.11 m = 8109234467) GUICHO (test code = GUICHO) Left Ventricle: [...] tachycardia. Lab Interpretation Abnormal (test code = 64190-1) [facility] mbexqcl0870-75-70 07:26:00 Test Item Value Reference Interpretation Comments Range Urine culture Proteus ydiamds67-5 A Specime n isolate (test cfu/mlThe InformationSpe [facility] code = 60687-7) performance Source: Urin eSpecimen characteristics of Site: Christopher an catch this assay on this isolatewere validated by the Microbiology Laboratory at [facility]. This source has not been approved by the U.S. Food and Drug Administration. The results are not intended to be used as the sole means for clinical diagnosis or patient management. The Microbiology Laboratory is authorized under the clinical Laboratory Improvement Amendments of 1988 (CLIA-88) to perform high complexity testing. Lab Abnormal Interpretation (test code = 29077-5) [facility]) RNA [Presence] in Respiratory specimen by DANIEL with probe fwzygnymr0787-96-08 00:41:02 Test Item Value Reference Range Interpretation Comments SARS-CoV-2 (COVID-19) RNA Not detected [Presence] in Respiratory specimen by DANIEL with probe detection (test code = 73011-1) Whether patient is employed in a Unknown healthcare setting (test code = 09647-9) Whether the patient has symptoms Unknown related to condition of interest (test code = 35200-2) Whether the patient was Unknown hospitalized for condition of interest (test code = 71441-7) Whether the patient was admitted Unknown to intensive care unit (ICU) for condition of interest (test code = 40180-8) Whether patient resides in a Unknown congregate care setting (test code = 26695-1) status (test code = Unknown 26499-0) Date and time of symptom onset Unknown (test code = 37957-6) [facility] JPZO1785-47-76 10:28:00 [facility] : 1955 Sex: F Name: FREDDIE SAUCEDO [facility] : 1955 Age/S: 66 / F [address] Unit #: [id number] Loc: [place] [address] Phys: Mic Aiken MD Acct: [id number] Dis Date: Status: REG SDC PHONE #: [phone] Exam Date: 03/08/2022 0950 FAX #: Reason: ERCP EXAMS: CPT: [id number] XR ERCP 45759 Fluoro Time: 33 SEC DAP (Gy m2): [...] Antonella Rodriguez MD PAGE 1 Signed Report Name:FREDDIE SAUCEDO [place] : 1955 Age/S: 66 / F [address] Unit #: [id number] Loc: [place] [address] Phys: Mic Aiken MD Acct: [id number] Dis Date: Status: [facility] PHONE #: [phone] Exam Date: 03/08/2022 0950 FAX #: Reason: ERCP EXAMS: CPT: [id number] XR ERCP 72795 FluoroTime: 33 SEC DAP (Gy m2): Air Kerma (mGy): (Continued) Technologist: Naila Davis RT(R) Trnscb Date/Time: 03/08/2022 (6187) t.ANS4 Orig Print D/T: S: 03/08/2022 (4518) PAGE 2 Signed XjaymdPKUHTLRZM1874-57-39 08:51:00 Test Item Value Reference Range Interpretation Comments POTASSIUM (test code = K) 5.1 mmol/L 3.4-5.0 H CBC W/AUTO [id number] 08:15:00 Test Item Value Reference Range Interpretation [...] NO DIFF/SCN CRITERIA = MDIFF) BASIC METABOLIC [id number] 08:08:00 Test Item Value Reference Range Interpretation [...] 9.9 MG/DL 8.5-10.1 N COVID 19 INHOUSE [id number] 14:11:00 Test Item Value Reference Range Interpretation Comments COVID 19 INHOUSE AG NEGATIVE Negative Per marshal facturer, (test code = negative result s should [id number]) be treated aspr esumptive and, if inconsi [...] symptoms co nsistent with COVID-19. CBC W/AUTO [id number] 14:00:00 Test Item Value Reference Range Interpretation [...] DIFF REQUIRED NO DIFF/SCN CRITERIA SLIDE R EVIEW (test code = MDIFF) CONSISTA NT WITH AUTO DIFFERENTI AL. BASIC METABOLIC [id number] 13:32:00 Test Item Value Reference Range Interpretation [...] CA) 10.1 MG/DL 8.5-10.1 N HEPATIC FUNCTION [id number] 13:32:00 Test Item Value Reference Range Interpretation [...] 222 Unit/L 45-117 H code = ALKP) [id number] 13:32:00 Test Item Value Reference Range Interpretation Comments LIPASE (test code = LIP) 109 Unit/L 114-286 L [id number] 18:01:00 Test Item Value Reference Range Interpretation Comments SURGICAL (test code = SR) RUN DATE: 03/01/22 [facility] PAGE 1 RUN TIME: 1801 Specimen Inquiry RUN USER: INTERFACE LIANNA ENT: FREDDIE SAUCEDO LOC: [facility] U #: [id number] AGE/SX: 66/F ROOM: RE02/27/22[facility] DR: Adam King MD : [birth year] BED: DIS: STATUS: [facility] TLOC: SPEC #: [id number]:PMC:[id number] RECD: 02/27/22 STATUS: YULIA PILLAI #: [id number] LUZ: 02/27/22-[address] [facility] [address]: Adam King MD ENTERED: 02/27/22 SP TYPE: SURGICAL OTHR DR: Antonella Rodriguez MD ORDERED: 16318/2, 92090, 57067, 87154, ANATOMIC SPEC, SPECIMEN TRACK COPIES TO: Antonella Rodriguez MD [address] [place] [address] Adam King MD [address] [place] [address] PROCEDURES: 19877 (02/27/22-1153) 98344 (03/01/22) 09717 (03/01/22) 44649 (03/01/22) SPECIMEN TRACK (02/27/22) TISSUES: A. GASTRIC [...] internal) control is negative (staining performed at [facility]). CONTINUED ON NEXT PAGE RUN DATE: 03/01/22 [facility] PAGE 2 RUN TIME: 1801 Specimen Inquiry RUN USER: INTERFACE SPEC #: [id number]:[facility]:[id number] PATIENT: FREDDIE SAUCEDO #[id number] (Continued) ------- GROSS DESCRIPTION A. Antrum and body biopsy. It consists of 4 tissue fragments measuring 2-5 mm. All as A1. B. Distal esophageal biopsy. It consists of 2 tissue fragments measuring 3 mm each. Allas B1. Technical component performed at [place] , [place] [address] Unless gross only, the diagnosis is based [...] Signed SIGNATURE ON FILE Obdulio Dunn 03/01/22 1801 END OF REPORT BASIC METABOLIC [id number] 08:13:00 Test Item Value Reference Range Interpretation [...] MG/DL 8.5-10.1 N - XR CHEST 2 [id number] 13:28:00 [facility] : 1955 Sex: F Name: FREDDIE SAUCEDO [facility] : 1955 Age/S: 66 / F [address] Unit #: [id number] Loc: [place] [address] Phys: Adam King MD Acct: [id number] Dis Date: Status: PRE [facility] PHONE#: [phone] Exam Date: 02/24/2022 1255 FAX #: Reason: PRE OP EXAMS: CPT: [id number] XR CHEST 2 C48413 Fluoro Time: DAP (Gy m2): Air Kerma (mGy): Chest 2 views 02/24/2022 1:27 PM CLINICAL HISTORY: Preop COMPARISON: None available LOCATION: W1 IMPRESSION: There is elevation of the right hemidiaphragm. Bibasilar opacities suggest atelectasis. Pneumonia should be excluded clinically. Cardiomediastinalcontours are within normal limits. The central vasculature is not engorged. A tunneled left hemodialysis catheter is present. There are chronic appearing degenerative changes in the skeleton. at 1328 Reported and signed by: Kristian Sidhu M.D. CC: Antonella Rodriguez MD; Adam King MD PAGE 1 Signed Report Name: FREDDIE SAUCEDO [facility] : 1955 Age/S: 66 / F [address] Unit #: [id number] Loc: [place] [address] Phys: Adam King MD Acct: [id number] Dis Date: Status: PRE SDC PHONE #: [phone] Exam Date: 02/24/2022 1253 FAX #: Reason: PRE OP EXAMS: CPT: [id number] XR CHEST 2 V 59424 Fluoro Time: DAP (Gy m2): Air Kerma (mGy): (Continued) Technologist: Priya Lemos RT (R)(CT) Trnscb Date/Time: 02/24/2022 (1328) t.DIANNR.TS14 Orig Print D/T: S: 02/24/2022 (3492) PAGE 2 Signed ReportBASIC METABOLIC [id number] 12:55:00 Test Item Value Reference Range Interpretation [...] 10.5 MG/DL 8.5-10.1 H COVID 19 INHOUSE [id number] 12:52:00 Test Item Value Reference Range Interpretation Comments COVID 19 INHOUSE AG NEGATIVE Negative Per manu facturer, (test code = negative result s should [id number]) be treated aspr esumptive and, if inconsi [...] and symptoms co nsistent with COVID-19. PROTHROMBIN [id number] 12:44:00 Test Item Value Reference Range Interpretation [...] (to prevent recurrent infar ct). THROMBOPLASTIN TIME [id number] 12:44:00 Test Item Value Reference Range Interpretation Comments THROMBOPLASTIN TIME PARTIAL 36.2 SECONDS 26-35 H (test code = PTT) CBC W/AUTO [id number] 12:43:00 Test Item Value Reference Range Interpretation [...] in Respiratory specimen by DANIEL with probe zfmgcvcvf6368-17-82 23:10:10 Test Item Value Reference Range Interpretation Comments SARS coronavirus RNA [Presence] Not detected in Isolate by DANIEL with probe detection (test code = 47230-2) Whether patient is employed in a No healthcare setting (test code = 00969-4) Whether the patient has symptoms Yes related to condition of interest (test code = 91259-9) Whether the patient was No hospitalized for condition of interest (test code = 19563-2) Whether the patient was admitted No to intensive care unit (ICU) for condition of interest (test code = 87392-4) Whether patient resides in a No congregate care setting (test code = 69333-7) status (test code = No 55768-7) Date and time of symptom onset Unknown (test code = 07961-6) [facility]-CoV-2 (COVID-19) RNA [Presence] in Respiratory specimen by DANIEL with probe pqjbyvrth3930-45-99 23:10:10 Test Item Value Reference Range Interpretation Comments SARS-CoV-2 (COVID-19) RNA Not detected [Presence] in Respiratory specimen by DANIEL with probe detection (test code = 01279-2) Whether patient is employed in a No healthcare setting (test code = 73119-6) Whether the patient has symptoms Yes related to condition of interest (test code = 60873-9) Whether the patient was No hospitalized for condition of interest (test code = 16826-4) Whether the patient was admitted No to intensive care unit (ICU) for condition of interest (test code = 04349-3) Whether patient resides in a No congregate care setting (test code = 04985-7) status (test code = No 83295-8) Date and time of symptom onset Unknown (test code = 66909-0) [facility]-CoV-2 (COVID-19) RNA [Presence] in Respiratory specimen by DANIEL with probe udgbejcxy7028-96-97 22:34:30 Test Item Value Reference Range Interpretation Comments SARS-CoV-2 (COVID-19) RNA Not detected Not-Detected [Presence] in Respiratory specimen by DANIEL with probe detection (test code = 24313-6) Whether patient is employed in a healthcare setting (test code = 26427-7) Whether the patient has symptoms related to condition of interest (test code = 87671-0) Patient was hospitalized because of this condition (test code = 48582-4) Whether the patient was admitted to intensive care unit (ICU) for condition of interest (test code = 63197-1) Whether patient resides in a congregate care setting (test code = 21284-4) [facility]-CoV-2 (COVID-19) RNA [Presence] in Respiratory specimen by DANIEL with probe silojxfnt2362-43-89 22:35:42 Test Item Value Reference Range Interpretation Comments SARS-CoV-2 (COVID-19) RNA Not detected Not-Detected [Presence] in Respiratory specimen by DANIEL with probe detection (test code = 38051-0) Whether patient is employed in a healthcare setting (test code = 73001-3) Whether the patient has symptoms related to condition of interest (test code = 12712-7) Patient was hospitalized because of this condition (test code = 36792-1) Whether the patient was admitted to intensive care unit (ICU) for condition of interest (test code = 32672-8) Whether patient resides in a congregate care setting (test code = 52157-8) [facility]-CoV-2 (COVID-19) RNA [Presence] in Respiratory specimen by DANIEL with probe buhulmlgl5102-63-31 22:46:10 Test Item Value Reference Range Interpretation Comments SARS-CoV-2 (COVID-19) RNA Not detected Not-Detected [Presence] in Respiratory specimen by DANIEL with probe detection (test code = 96395-2) Whether patient is employed in a healthcare setting (test code = 47710-2) Whether the patient has symptoms related to condition of interest (test code = 89345-9) Patient was hospitalized because of this condition (test code = 28594-1) Whether the patient was admitted to intensive care unit (ICU) for condition of interest (test code = 53574-6) Whether patient resides in a congregate care setting (test code = 38347-7) [facility]-CoV-2 (COVID-19) RNA [Presence] in Respiratory specimen by DANIEL with probe tpecyvzxq6736-19-70 01:54:24 Test Item Value Reference Range Interpretation Comments SARS-CoV-2 (COVID-19) RNA Not detected Not-Detected [Presence] in Respiratory specimen by DANIEL with probe detection (test code = 80399-2) Whether patient is employed in a healthcare setting (test code = 44171-7) Whether the patient has symptoms related to condition of interest (test code = 81619-0) Patient was hospitalized because of this condition (test code = 88131-5) Whether the patient was admitted to intensive care unit (ICU) for condition of interest (test code = 94127-8) Whether patient resides in a congregate care setting (test code = 72684-1) [facility]-CoV-2 (COVID-19) RNA [Presence] in Respiratory specimen by DANIEL with probe unlcnovhh4720-47-49 21:44:06 Test Item Value Reference Range Interpretation Comments SARS-CoV-2 (COVID-19) RNA Not detected Not-Detected [Presence] in Respiratory specimen by DANIEL with probe detection (test code = 78830-0) Whether patient is employed in a healthcare setting (test code = 54141-3) Whether the patient has symptoms related to condition of interest (test code = 02362-4) Patient was hospitalized because of this condition (test code = 19835-6) Whether the patient was admitted to intensive care unit (ICU) for condition of interest (test code = 70631-1) Whether patient resides in a congregate care setting (test code = 20217-8) [facility]-CoV-2 (COVID-19) RNA [Presence] in Respiratory specimen by DANIEL with probe oroezjvhf9692-37-23 00:36:59 Test Item Value Reference Range Interpretation Comments SARS-CoV-2 (COVID-19) RNA Not detected Not-Detected [Presence] in Respiratory specimen by DANIEL with probe detection (test code = 76017-0) [facility]-CoV-2 (COVID-19) RNA [Presence] in Respiratory specimen by DANIEL with probe oxjonenoz6762-68-04 17:35:35 Test Item Value Reference Range Interpretation Comments SARS-CoV-2 (COVID-19) RNA Not detected Not-Detected [Presence] in Respiratory specimen by DANIEL with probe detection (test code = 21301-5) [facility]-CoV-2 (COVID-19) RNA [Presence] in Respiratory specimen by DANIEL with probe jyzwdtbam8688-87-99 18:03:30 Test Item Value Reference Range Interpretation Comments SARS-CoV-2 (COVID-19) RNA Not detected Not-Detected [Presence] in Respiratory specimen by DANIEL with probe detection (test code = 27832-6) [facility]-CoV-2 (COVID-19) RNA [Presence] in Respiratory specimen by DANIEL with probe nbwxtgafr5133-24-58 10:06:03 Test Item Value Reference Range Interpretation Comments SARS-CoV-2 (COVID-19) RNA Not detected Not-Detected [Presence] in Respiratory specimen by DANIEL with probe detection (test code = 57951-7) [facility]-CoV-2 (COVID-19) RNA [Presence] in Respiratory specimen by DANIEL with probe gqdiluqxw2597-79-63 05:11:58 Test Item Value Reference Range Interpretation Comments SARS-CoV-2 (COVID-19) RNA Not detected Not-Detected [Presence] in Respiratory specimen by DANIEL with probe detection (test code = 94016-4) [facility]-CoV-2 (COVID-19) RNA [Presence] in Respiratory specimen by DANIEL with probe hioeyjeeq0926-99-08 03:34:16 Test Item Value Reference Range Interpretation Comments SARS-CoV-2 (COVID-19) RNA Not detected Not-Detected [Presence] in Respiratory specimen by DANIEL with probe detection (test code = 09377-4) [facility]-CoV-2 (COVID-19) RNA [Presence] in Respiratory specimen by DANIEL with probe wolxfddwt2537-77-53 10:06:41 Test Item Value Reference Range Interpretation Comments SARS-CoV-2 (COVID-19) RNA Not detected Not-Detected [Presence] in Respiratory specimen by DANIEL with probe detection (test code = 11522-6) [facility]2020-10-14 12:33:00 Test Item Value Reference Range Interpretation Comments Chol (test code = Chol) 129 [facility]oat[facility]GCOMWT3143-21-56 12:33:00 Test Item Value Reference Range Interpretation Comments HDL (test code = HDL) 37 [facility] CenterPlnubztHBUFAX6586-04-30 12:33:00 Test Item Value Reference Range Interpretation Comments Trig (test code = Trig) 76 [facility] CenterOpxuhbfJOXMMS9039-46-43 12:33:00 Test Item Value Reference Range Interpretation Comments LDL (Calculated) (test code = LDL 76 (Calculated)) [facility] CenterHexibjfDAIJIU7634-06-83 12:33:00 Test Item Value Reference Range Interpretation Comments CHD Risk (test code = CHD Risk) 3.5 [facility] CenterAhrfjcuDGGGIZ6910-70-93 12:33:00 Test Item Value Reference Range Interpretation Comments Non HDL Chol (test code = Non HDL Chol) 92 [facility] CenterZwvajziXPYLAB6729-76-31 12:33:00 Test Item Value Reference Range Interpretation Comments Chol (test code = Chol) 129 [facility] CenterJzceadsYHODWS4379-86-37 12:33:00 Test Item Value Reference Range Interpretation Comments HDL (test code = HDL) 37 [facility] CenterFtfyxrtEKKVES4823-02-15 12:33:00 Test Item Value Reference Range Interpretation Comments Trig (test code = Trig) 76 [facility] CenterSaofnwqRYWWEY4757-33-16 12:33:00 Test Item Value Reference Range Interpretation Comments LDL (Calculated) (test code = LDL 76 (Calculated)) [facility] CenterUzyeelvPZYPSQ3610-21-92 12:33:00 Test Item Value Reference Range Interpretation Comments CHD Risk (test code = CHD Risk) 3.5 [facility] CenterDntnssuFLRLXX2346-64-04 12:33:00 Test Item Value Reference Range Interpretation Comments Non HDL Chol (test code = Non HDL Chol) 92 [facility] CenterXulruffOLKUFB1546-75-74 12:33:00 Test Item Value Reference Range Interpretation Comments Chol (test code = Chol) 129 [facility] CenterDwofrfnRRHLZN6667-48-21 12:33:00 Test Item Value Reference Range Interpretation Comments HDL (test code = HDL) 37 [facility] CenterWytgkgeQQHCHJ6114-94-40 12:33:00 Test Item Value Reference Range Interpretation Comments Trig (test code = Trig) 76 [facility] CenterCvonmrkWASMDJ8703-33-33 12:33:00 Test Item Value Reference Range Interpretation Comments LDL (Calculated) (test code = LDL 76 (Calculated)) [place] [address]-10-14 12:33:00 Test Item Value Reference Range Interpretation Comments CHD Risk (test code = CHD Risk) 3.5 [facility]rs[facility]ccoJMAZHA4735[facility]34-05 12:33:00 Test Item Value Reference Range Interpretation Comments Non HDL Chol (test code = Non HDL Chol) 92 [facility]burgYwtjhoxHPIRWH0989-63-69 12:33:00 Test Item Value Reference Range Interpretation Comments Chol (test code = Chol) 129 [facility]inburgSgbcwikBOJQWP3448-29-81 12:33:00 Test Item Value Reference Range Interpretation Comments HDL (test code = HDL) 37 [facility]burgUfueagdHYFNVO5260-21-00 12:33:00 Test Item Value Reference Range Interpretation Comments Trig (test code = Trig) 76 [facility] CenterMjvpvzoZFIUKB2067-85-69 12:33:00 Test Item Value Reference Range Interpretation Comments LDL (Calculated) (test code = LDL 76 (Calculated)) [facility] CenterKcarrkxJLRLUB2239-66-21 12:33:00 Test Item Value Reference Range Interpretation Comments CHD Risk (test code = CHD Risk) 3.5 [facility]burgFhdrfjnUJWPNK4367-27-39 12:33:00 Test Item Value Reference Range Interpretation Comments Non HDL Chol (test code = Non HDL Chol) 92 [facility] [employer] CZNER4411-89-97 14:47:00 Test Item Value Reference Range Interpretation Comments Vitamin D, 25-OH, Total (test code = 37 30-100 Vitamin D, 25-OH, Total) [facility] [employer] ACJTT1439-70-62 14:47:00 Test Item Value Reference Range Interpretation Comments U Creat mg/dL (test code = U Creat 114 20-275 mg/dL) [facility] [employer] LEPOK9792-60-82 14:47:00 Test Item Value Reference Range Interpretation Comments U Prot/Creat (test code = U Prot/Creat) 430 21-161 [facility] [employer] FXEFR8145-98-28 14:47:00 Test Item Value Reference Range Interpretation Comments U Prot/Creat (test code = U 0.430 1 0.021-0.161 Prot/Creat) [facility] [employer] ABXSD7657-05-29 14:47:00 Test Item Value Reference Range Interpretation Comments U Protein (test code = U Protein) 49 5-24 [facility] [employer] DXNLI6440-94-02 14:47:00 Test Item Value Reference Range Interpretation Comments Glucose Lvl (test code = Glucose Lvl) 103 65-99 [place] 925150-08-06 14:47:00 Test Item Value Reference Range Interpretation Comments BUN (test code = BUN) 24 7-25 [place] [address]-08-06 14:47:00 Test Item Value Reference Range Interpretation Comments Creatinine Lvl (test code = Creatinine 1.32 0.50-0.99 Lvl) [place] [address]-08-06 14:47:00 Test Item Value Reference Range Interpretation Comments eGFR NON-AFR. MOLDOVAN (test code = 43 eGFR NON-AFR. MOLDOVAN) [place] [address]-08-06 14:47:00 Test Item Value Reference Range Interpretation Comments eGFR (test code = eGFR 50 ) [place] [address]-08-06 14:47:00 Test Item Value Reference Range Interpretation Comments B/C Ratio (test code = B/C Ratio) 18 6-22 [place] [address]-08-06 14:47:00 Test Item Value Reference Range Interpretation Comments Sodium Lvl (test code = Sodium Lvl) 138 135-146 [place] 925150-08-06 14:47:00 Test Item Value Reference Range Interpretation Comments Potassium Lvl (test code = Potassium 4.4 3.5-5.3 Lvl) [facility]2020-08-06 14:47:00 Test Item Value Reference Range Interpretation Comments Chloride Lvl (test code = Chloride Lvl) 102 98-110 [place] 925150-08-06 14:47:00 Test Item Value Reference Range Interpretation Comments CO2 (test code = CO2) 30 20-32 [place] [address]-08-06 14:47:00 Test Item Value Reference Range Interpretation Comments Calcium Lvl (test code = Calcium Lvl) 9.4 8.6-10.4 [place] 925150-08-06 14:47:00 Test Item Value Reference Range Interpretation Comments Phosphorus (test code = Phosphorus) 4.8 2.5-4.5 [place] [address]-08-06 14:47:00 Test Item Value Reference Range Interpretation Comments Albumin Lvl (test code = Albumin Lvl) 3.9 3.6-5.1 [place] 669370-08-06 14:47:00 Test Item Value Reference Range Interpretation Comments Plt Count Estimated (test code = DECREASED Plt Count Estimated) [facility] CenterXlsxpxmDRUDJERNAR3231-77-21 14:47:00 Test Item Value Reference Range Interpretation Comments WBC X 10x3 (test code = WBC X 10x3) 7.2 3.8-10.8 [place] 669370-08-06 14:47:00 Test Item Value Reference Range Interpretation Comments RBC X 10x6 (test code = RBC X 10x6) 3.71 3.80-5.10 [facility] CenterVirzqbwLKNEUGHGUO1872-61-56 14:47:00 Test Item Value Reference Range Interpretation Comments Hgb (test code = Hgb) 10.7 11.7-15.5 [facility] CenterVnkmvfuJUFOIOPAAR3854-61-61 14:47:00 Test Item Value Reference Range Interpretation Comments Hct (test code = Hct) 33.9 35.0-45.0 [facility] CenterMozdjbpKHWRNHKWZY3045-99-29 14:47:00 Test Item Value Reference Range Interpretation Comments MCV (test code = MCV) 91.4 80.0-100.0 [facility] CenterHvofqbmZRTJVQWYRT4755-02-19 14:47:00 Test Item Value Reference Range Interpretation Comments MCH (test code = MCH) 28.8 pg 27.0-33.0 [facility] CenterQrhgykvQJMOQRRGZP3001-51-40 14:47:00 Test Item Value Reference Range Interpretation Comments MCHC (test code = MCHC) 31.6 32.0-36.0 [facility] CenterVzulklpAIITMRIZOD4116-57-34 14:47:00 Test Item Value Reference Range Interpretation Comments RDW (test code = RDW) 13.9 11.0-15.0 [place] 669370-08-06 14:47:00 Test Item Value Reference Range Interpretation Comments Platelet (test code = Platelet) 110 140-400 [facility] CenterYqwzmemEEOSKKUTUT7394-62-49 14:47:00 Test Item Value Reference Range Interpretation Comments MPV (test code = MPV) 11.7 7.5-12.5 [facility] CenterCtfuaebRBPHKARYFL4755-26-02 14:47:00 Test Item Value Reference Range Interpretation Comments Neutrophils # (test code = Neutrophils 5414 7992-7683 #) [facility] CenterIkwecbjRJTTVRNTSA0198-47-81 14:47:00 Test Item Value Reference Range Interpretation Comments Lymphocytes # (test code = Lymphocytes 0815 415-3678 #) [facility]XcneklwBAYDXSIPKS2544-46-11 14:47:00 Test Item Value Reference Range Interpretation Comments Monocytes # (test code = Monocytes #) 461 200-950 [facility] HospitalBfkaoyjXYGGAVCRCI2631-05-75 14:47:00 Test Item Value Reference Range Interpretation Comments Eosinophils # (test code = Eosinophils 122 15-500 #) [facility] CenterNwpejnwBCTFGCNOXL2461-09-84 14:47:00 Test Item Value Reference Range Interpretation Comments Basophils # (test code 50 See_Comment [Aut omated message] The = Basophils #) system which generated this result tra nsmitted reference range : <=200. The reference r edy was not used to int erpret this result as normal/abnormal . [facility] CenterKetedstQMDHWUCOUW8176-93-68 14:47:00 Test Item Value Reference Range Interpretation Comments Segs (test code = Segs) 75.2 [facility] CenterJyerfxyYQQTOYCZPV3186-24-40 14:47:00 Test Item Value Reference Range Interpretation Comments Lymphocytes (test code = Lymphocytes) 16.0 [facility] CenterIeixvugEQASQSVWZG4646-85-30 14:47:00 Test Item Value Reference Range Interpretation Comments Monocytes (test code = Monocytes) 6.4 [facility] CenterBjevluxOVZPPHCXYC1396-46-09 14:47:00 Test Item Value Reference Range Interpretation Comments Eosinophils (test code = Eosinophils) 1.7 [facility] CenterXrdvticBZYIYVJMBE7247-62-64 14:47:00 Test Item Value Reference Range Interpretation Comments Basophils (test code = Basophils) 0.7 [facility] [id number] 14:47:00 Test Item Value Reference Range Interpretation Comments Result 2 (Urine Culture) See Result Comment (test code = Result 2 (Urine Culture)) [facility] AND [id number] 14:47:00 Test Item Value Reference Range Interpretation Comments UA Color (test code = UA Color) YELLOW [facility] AND [id number] 14:47:00 Test Item Value Reference Range Interpretation Comments UA Turbidity (test code = UA CLOUDY Turbidity) [facility] AND [id number] 14:47:00 Test Item Value Reference Range Interpretation Comments UA Spec Grav (test code = UA Spec 1.017 1 1.001-1.035 Grav) [facility] AND [id number] 14:47:00 Test Item Value Reference Range Interpretation Comments UA pH (test code = UA pH) 5.5 1 5.0-8.0 [facility]2020-08-06 14:47:00 Test Item Value Reference Range Interpretation Comments Vitamin D, 25-OH, Total (test code = 37 30-100 Vitamin D, 25-OH, Total) [facility] AND [id number] 14:47:00 Test Item Value Reference Range Interpretation Comments UA Glucose (test code = UA Glucose) NEGATIVE [facility]2020-08-06 14:47:00 Test Item Value Reference Range Interpretation Comments U Creat mg/dL (test code = U Creat 114 20-275 mg/dL) [facility]2020-08-06 14:47:00 Test Item Value Reference Range Interpretation Comments U Prot/Creat (test code = U Prot/Creat) 430 21-161 [facility]2020-08-06 14:47:00 Test Item Value Reference Range Interpretation Comments U Prot/Creat (test code = U 0.430 1 0.021-0.161 Prot/Creat) [facility]2020-08-06 14:47:00 Test Item Value Reference Range Interpretation Comments U Protein (test code = U Protein) 49 5-24 [place] 925150-08-06 14:47:00 Test Item Value Reference Range Interpretation Comments Glucose Lvl (test code = Glucose Lvl) 103 65-99 [facility]2020-08-06 14:47:00 Test Item Value Reference Range Interpretation Comments BUN (test code = BUN) 24 7-25 [place] 925150-08-06 14:47:00 Test Item Value Reference Range Interpretation Comments Creatinine Lvl (test code = Creatinine 1.32 0.50-0.99 Lvl) [facility]2020-08-06 14:47:00 Test Item Value Reference Range Interpretation Comments eGFR NON-AFR. MOLDOVAN (test code = 43 eGFR NON-AFR. MOLDOVAN) [facility]2020-08-06 14:47:00 Test Item Value Reference Range Interpretation Comments eGFR (test code = eGFR 50 ) [place] 925150-08-06 14:47:00 Test Item Value Reference Range Interpretation Comments B/C Ratio (test code = B/C Ratio) 18 6-22 [facility] AND [id number] 14:47:00 Test Item Value Reference Range Interpretation Comments UA Bili (test code = UA Bili) NEGATIVE [facility] [id number] 14:47:00 Test Item Value Reference Range Interpretation Comments Sodium Lvl (test code = Sodium Lvl) 138 135-146 [facility]2020-08-06 14:47:00 Test Item Value Reference Range Interpretation Comments Potassium Lvl (test code = Potassium 4.4 3.5-5.3 Lvl) [facility]2020-08-06 14:47:00 Test Item Value Reference Range Interpretation Comments Chloride Lvl (test code = Chloride Lvl) 102 98-110 [facility]2020-08-06 14:47:00 Test Item Value Reference Range Interpretation Comments CO2 (test code = CO2) 30 20-32 [facility]2020-08-06 14:47:00 Test Item Value Reference Range Interpretation Comments Calcium Lvl (test code = Calcium Lvl) 9.4 8.6-10.4 [facility]2020-08-06 14:47:00 Test Item Value Reference Range Interpretation Comments Phosphorus (test code = Phosphorus) 4.8 2.5-4.5 [facility]2020-08-06 14:47:00 Test Item Value Reference Range Interpretation Comments Albumin Lvl (test code = Albumin Lvl) 3.9 3.6-5.1 [facility] CenterAvdcaorOEVTCPBTAD2861-09-42 14:47:00 Test Item Value Reference Range Interpretation Comments Plt Count Estimated (test code = DECREASED Plt Count Estimated) [facility] CenterJiddxvgUCBEMHQQYI8141-26-66 14:47:00 Test Item Value Reference Range Interpretation Comments WBC X 10x3 (test code = WBC X 10x3) 7.2 3.8-10.8 [facility] CenterUzihdckZSOSYKFIDG0471-25-83 14:47:00 Test Item Value Reference Range Interpretation Comments RBC X 10x6 (test code = RBC X 10x6) 3.71 3.80-5.10 [facility] AND [id number] 14:47:00 Test Item Value Reference Range Interpretation Comments UA Ketones (test code = UA Ketones) NEGATIVE [facility] HospitalBzrzvcyFKONQCHGKX5459-53-49 14:47:00 Test Item Value Reference Range Interpretation Comments Hgb (test code = Hgb) 10.7 11.7-15.5 [facility] HospitalIdcuypmOXQKYDRDQH7490-15-63 14:47:00 Test Item Value Reference Range Interpretation Comments Hct (test code = Hct) 33.9 35.0-45.0 [facility] HospitalZrybmsrVUALSXIQCP2228-27-40 14:47:00 Test Item Value Reference Range Interpretation Comments MCV (test code = MCV) 91.4 80.0-100.0 [facility] HospitalErppwsoDTFZJLJYLP3557-36-21 14:47:00 Test Item Value Reference Range Interpretation Comments MCH (test code = MCH) 28.8 pg 27.0-33.0 [facility] HospitalVhlcwpuVYGGAGQMRF5489-90-77 14:47:00 Test Item Value Reference Range Interpretation Comments MCHC (test code = MCHC) 31.6 32.0-36.0 [facility] HospitalQokyantWWQTFGCJCS6742-72-29 14:47:00 Test Item Value Reference Range Interpretation Comments RDW (test code = RDW) 13.9 11.0-15.0 [facility] HospitalNwmwvuaLIUAYMRWMH6913-81-95 14:47:00 Test Item Value Reference Range Interpretation Comments Platelet (test code = Platelet) 110 140-400 [facility] CenterLfatdpoRMSEOQOGFN5892-12-84 14:47:00 Test Item Value Reference Range Interpretation Comments MPV (test code = MPV) 11.7 7.5-12.5 [facility] CenterZdcyrheVNUWKNGQSA1936-18-14 14:47:00 Test Item Value Reference Range Interpretation Comments Neutrophils # (test code = Neutrophils 5414 1206-8333 #) [facility] HospitalRfmoklbQZQPKJOANY7948-46-19 14:47:00 Test Item Value Reference Range Interpretation Comments Lymphocytes # (test code = Lymphocytes 2585 475-2789 #) [facility]2020-08-06 14:47:00 Test Item Value Reference Range Interpretation Comments UA Blood (test code = UA Blood) 1+ [facility] CenterMthaogqRVEAYAKZOQ2646-24-61 14:47:00 Test Item Value Reference Range Interpretation Comments Monocytes # (test code = Monocytes #) 461 200-950 [facility] CenterCrtnytwEPTHQIMNDY2732-52-88 14:47:00 Test Item Value Reference Range Interpretation Comments Eosinophils # (test code = Eosinophils 122 15-500 #) [facility]CzuubiyONGEHZJNOT9213-87-24 14:47:00 Test Item Value Reference Range Interpretation Comments Basophils # (test code 50 See_Comment [Aut omated message] The = Basophils #) system which generated this result tra nsmitted reference range : <=200. The reference r edy was not used to int erpret this result as normal/abnormal . [facility] HospitalNolhamfFONWUVTDFD9913-42-38 14:47:00 Test Item Value Reference Range Interpretation Comments Segs (test code = Segs) 75.2 [facility] HospitalBuenzcfHKWQJUFYVP0199-35-65 14:47:00 Test Item Value Reference Range Interpretation Comments Lymphocytes (test code = Lymphocytes) 16.0 [facility] CenterVacveezLRTUYDVWHA8080-68-77 14:47:00 Test Item Value Reference Range Interpretation Comments Monocytes (test code = Monocytes) 6.4 [facility] HospitalAbxaezlHDVXUDBNMV8489-25-18 14:47:00 Test Item Value Reference Range Interpretation Comments Eosinophils (test code = Eosinophils) 1.7 [facility] HospitalQedmxhbZVXSLBMOKR7351-42-44 14:47:00 Test Item Value Reference Range Interpretation Comments Basophils (test code = Basophils) 0.7 [facility] [id number] 14:47:00 Test Item Value Reference Range Interpretation Comments Result 2 (Urine Culture) See Result Comment (test code = Result 2 (Urine Culture)) [facility] AND [id number] 14:47:00 Test Item Value Reference Range Interpretation Comments UA Color (test code = UA Color) YELLOW [facility] AND [id number] 14:47:00 Test Item Value Reference Range Interpretation Comments UA Protein (test code = UA Protein) 1+ [facility] AND [id number] 14:47:00 Test Item Value Reference Range Interpretation Comments UA Turbidity (test code = UA CLOUDY Turbidity) [facility] AND [id number] 14:47:00 Test Item Value Reference Range Interpretation Comments UA Spec Grav (test code = UA Spec 1.017 1 1.001-1.035 Grav) [facility] AND [id number] 14:47:00 Test Item Value Reference Range Interpretation Comments UA pH (test code = UA pH) 5.5 1 5.0-8.0 [facility] [id number] 14:47:00 Test Item Value Reference Range Interpretation Comments UA Glucose (test code = UA Glucose) NEGATIVE [facility] [id number] 14:47:00 Test Item Value Reference Range Interpretation Comments UA Bili (test code = UA Bili) NEGATIVE [facility] [id number] 14:47:00 Test Item Value Reference Range Interpretation Comments UA Ketones (test code = UA Ketones) NEGATIVE [facility] [id number] 14:47:00 Test Item Value Reference Range Interpretation Comments UA Blood (test code = UA Blood) 1+ [facility] [id number] 14:47:00 Test Item Value Reference Range Interpretation Comments UA Protein (test code = UA Protein) 1+ [facility] [id number] 14:47:00 Test Item Value Reference Range Interpretation Comments UA Nitrite (test code = UA Nitrite) POSITIVE [facility] [id number] 14:47:00 Test Item Value Reference Range Interpretation Comments UA Leuk Est (test code = UA Leuk Est) 2+ [facility] [id number] 14:47:00 Test Item Value Reference Range Interpretation Comments UA Nitrite (test code = UA Nitrite) POSITIVE [facility] [id number] 14:47:00 Test Item Value Reference Range Interpretation Comments UA WBC (test code = UA WBC) > OR = 60 [facility] [id number] 14:47:00 Test Item Value Reference Range Interpretation Comments UA RBC (test code = UA RBC) 0-2 [facility] [id number] 14:47:00 Test Item Value Reference Range Interpretation Comments UA Sq Epi (test code = UA Sq Epi) NONE [facility]EN [facility] [id number] 14:47:00 Test Item Value Reference Range Interpretation Comments UA Bacteria (test code = UA Bacteria) MANY [facility] [id number] 14:47:00 Test Item Value Reference Range Interpretation Comments UA Hyal Cast (test code = UA Hyal NONE SEEN Cast) [facility] [id number] 14:47:00 Test Item Value Reference Range Interpretation Comments UA Reflex (test code CULTURE INDICATED - = UA Reflex) RESULTS TO FOLLOW [facility] [id number] 14:47:00 Test Item Value Reference Range Interpretation Comments U Creat mg/dL (test code = U Creat 114 20-275 mg/dL) [facility] [id number] 14:47:00 Test Item Value Reference Range Interpretation Comments U Alb (test code = U Alb) 16.7 [facility]annST[facility] [id number] 14:47:00 Test Item Value Reference Range Interpretation Comments U Alb/Crea (test code = U Alb/Crea) 146 [facility]annST[facility] [id number] 14:47:00 Test Item Value Reference Range Interpretation Comments UA Leuk Est (test code = UA Leuk Est) 2+ [facility] AND [id number] 14:47:00 Test Item Value Reference Range Interpretation Comments UA WBC (test code = UA WBC) > OR = 60 [facility] AND [id number] 14:47:00 Test Item Value Reference Range Interpretation Comments UA RBC (test code = UA RBC) 0-2 [facility] [id number] 14:47:00 Test Item Value Reference Range Interpretation Comments UA Sq Epi (test code = UA Sq Epi) NONE SEEN [facility]annST[facility] AND [id number] 14:47:00 Test Item Value Reference Range Interpretation Comments UA Bacteria (test code = UA Bacteria) MANY [facility]ann[facility] AND [id number] 14:47:00 Test Item Value Reference Range Interpretation Comments UA Hyal Cast (test code = UA Hyal NONE SEEN Cast) [facility] AND [id number] 14:47:00 Test Item Value Reference Range Interpretation Comments UA Reflex (test code CULTURE INDICATED - = UA Reflex) RESULTS TO FOLLOW [facility] [id number] 14:47:00 Test Item Value Reference Range Interpretation Comments U Creat mg/dL (test code = U Creat 114 20-275 mg/dL) [facility] [id number] 14:47:00 Test Item Value Reference Range Interpretation Comments U Alb (test code = U Alb) 16.7 [facility] [id number] 14:47:00 Test Item Value Reference Range Interpretation Comments U Alb/Crea (test code = U Alb/Crea) 146 [facility]32[facility] films [id number] 14:47:00 Test Item Value Reference Range Interpretation Comments Vitamin D, 25-OH, Total (test code = 37 30-100 Vitamin D, 25-OH, Total) [facility] CenterWisconsin Radio StationCAROLINAS CONTINUEC[facility] HOSPITAL AT KINGS [id number] 14:47:00 Test Item Value Reference Range Interpretation Comments U Creat mg/dL (test code = U Creat 114 20-275 mg/dL) [facility]3225 films [id number] 14:47:00 Test Item Value Reference Range Interpretation Comments U Prot/Creat (test code = U Prot/Creat) 430 21-161 [facility]3225 films [id number] 14:47:00 Test Item Value Reference Range Interpretation Comments U Prot/Creat (test code = U 0.430 1 0.021-0.161 Prot/Creat) [facility]3225 films [id number] 14:47:00 Test Item Value Reference Range Interpretation Comments U Protein (test code = U Protein) 49 5-24 [facility]3225 films [id number] 14:47:00 Test Item Value Reference Range Interpretation Comments Glucose Lvl (test code = Glucose Lvl) 103 65-99 [facility]3225 films [id number] 14:47:00 Test Item Value Reference Range Interpretation Comments BUN (test code = BUN) 24 7-25 [facility]3225 films [id number] 14:47:00 Test Item Value Reference Range Interpretation Comments Creatinine Lvl (test code = Creatinine 1.32 0.50-0.99 Lvl) [facility]3225 films [id number] 14:47:00 Test Item Value Reference Range Interpretation Comments eGFR NON-AFR. MOLDOVAN (test code = 43 eGFR NON-AFR. MOLDOVAN) [facility]3225 films [id number] 14:47:00 Test Item Value Reference Range Interpretation Comments eGFR (test code = eGFR 50 ) [facility]3225 films [id number] 14:47:00 Test Item Value Reference Range Interpretation Comments B/C Ratio (test code = B/C Ratio) 18 6-22 [facility]3225 films [id number] 14:47:00 Test Item Value Reference Range Interpretation Comments Sodium Lvl (test code = Sodium Lvl) 138 135-146 [place] [address]-08-06 14:47:00 Test Item Value Reference Range Interpretation Comments Potassium Lvl (test code = Potassium 4.4 3.5-5.3 Lvl) [place] 925150-08-06 14:47:00 Test Item Value Reference Range Interpretation Comments Chloride Lvl (test code = Chloride Lvl) 102 98-110 [place] [address]-08-06 14:47:00 Test Item Value Reference Range Interpretation Comments CO2 (test code = CO2) 30 20-32 [place] [address]-08-06 14:47:00 Test Item Value Reference Range Interpretation Comments Calcium Lvl (test code = Calcium Lvl) 9.4 8.6-10.4 [place] [address]-08-06 14:47:00 Test Item Value Reference Range Interpretation Comments Phosphorus (test code = Phosphorus) 4.8 2.5-4.5 [place] 925150-08-06 14:47:00 Test Item Value Reference Range Interpretation Comments Albumin Lvl (test code = Albumin Lvl) 3.9 3.6-5.1 [place] [address]-08-06 14:47:00 Test Item Value Reference Range Interpretation Comments Plt Count Estimated (test code = DECREASED Plt Count Estimated) [place] 669370-08-06 14:47:00 Test Item Value Reference Range Interpretation Comments WBC X 10x3 (test code = WBC X 10x3) 7.2 3.8-10.8 [place] [address]-08-06 14:47:00 Test Item Value Reference Range Interpretation Comments RBC X 10x6 (test code = RBC X 10x6) 3.71 3.80-5.10 [place] [address]-08-06 14:47:00 Test Item Value Reference Range Interpretation Comments Hgb (test code = Hgb) 10.7 11.7-15.5 [place] [address]-08-06 14:47:00 Test Item Value Reference Range Interpretation Comments Hct (test code = Hct) 33.9 35.0-45.0 [place] [address]-08-06 14:47:00 Test Item Value Reference Range Interpretation Comments MCV (test code = MCV) 91.4 80.0-100.0 [place] [address]-08-06 14:47:00 Test Item Value Reference Range Interpretation Comments MCH (test code = MCH) 28.8 pg 27.0-33.0 [facility] CenterPhgvlebKFKWAVLOEQ9835-93-80 14:47:00 Test Item Value Reference Range Interpretation Comments MCHC (test code = MCHC) 31.6 32.0-36.0 [facility] CenterFfoguakEHXDMUCCSD1858-24-40 14:47:00 Test Item Value Reference Range Interpretation Comments RDW (test code = RDW) 13.9 11.0-15.0 [facility] CenterWbyrsxyHRWELIPZYK4025-73-06 14:47:00 Test Item Value Reference Range Interpretation Comments Platelet (test code = Platelet) 110 140-400 [facility] CenterQnvdckaLJQVCJYJOO4092-96-34 14:47:00 Test Item Value Reference Range Interpretation Comments MPV (test code = MPV) 11.7 7.5-12.5 [facility] CenterEvkcecqMDFGZATTMT8658-10-98 14:47:00 Test Item Value Reference Range Interpretation Comments Neutrophils # (test code = Neutrophils 5414 5938-7954 #) [facility] CenterMsyqnpoYEPARJKRJX8883-32-19 14:47:00 Test Item Value Reference Range Interpretation Comments Lymphocytes # (test code = Lymphocytes [phone] #) [facility] CenterKiscsqxTTJPXZZJXJ6175-36-68 14:47:00 Test Item Value Reference Range Interpretation Comments Monocytes # (test code = Monocytes #) 461 200-950 [facility] CenterZdwqcbnYNAUMAGTJQ2414-57-59 14:47:00 Test Item Value Reference Range Interpretation Comments Eosinophils # (test code = Eosinophils 122 15-500 #) [facility] CenterJylxyygEOAJFOJIEQ3604-11-88 14:47:00 Test Item Value Reference Range Interpretation Comments Basophils # (test code 50 See_Comment [Aut omated message] The = Basophils #) system which generated this result tra nsmitted reference range : <=200. The reference r edy was not used to int erpret this result as normal/abnormal . [facility] CenterRvahdpkQYYOFHAMEH8490-49-95 14:47:00 Test Item Value Reference Range Interpretation Comments Segs (test code = Segs) 75.2 [facility] CenterOrzwbtaCKKFVHXOTT9153-03-27 14:47:00 Test Item Value Reference Range Interpretation Comments Lymphocytes (test code = Lymphocytes) 16.0 [facility] CenterRiujssxUCQUIEHKEI5153-21-09 14:47:00 Test Item Value Reference Range Interpretation Comments Monocytes (test code = Monocytes) 6.4 [facility] CenterGuftdhxEWETRRRQYK7705-73-60 14:47:00 Test Item Value Reference Range Interpretation Comments Eosinophils (test code = Eosinophils) 1.7 [facility] CenterLifkykeTMLQUVKVJT4236-26-90 14:47:00 Test Item Value Reference Range Interpretation Comments Basophils (test code = Basophils) 0.7 [facility] [id number] 14:47:00 Test Item Value Reference Range Interpretation Comments Result 2 (Urine Culture) See Result Comment (test code = Result 2 (Urine Culture)) [facility] AND [id number] 14:47:00 Test Item Value Reference Range Interpretation Comments UA Color (test code = UA Color) YELLOW [facility] AND [id number] 14:47:00 Test Item Value Reference Range Interpretation Comments UA Turbidity (test code = UA CLOUDY Turbidity) [facility] AND [id number] 14:47:00 Test Item Value Reference Range Interpretation Comments UA Spec Grav (test code = UA Spec 1.017 1 1.001-1.035 Grav) [facility] AND [id number] 14:47:00 Test Item Value Reference Range Interpretation Comments UA pH (test code = UA pH) 5.5 1 5.0-8.0 [facility] AND [id number] 14:47:00 Test Item Value Reference Range Interpretation Comments UA Glucose (test code = UA Glucose) NEGATIVE [facility] AND [id number] 14:47:00 Test Item Value Reference Range Interpretation Comments UA Bili (test code = UA Bili) NEGATIVE [facility] AND [id number] 14:47:00 Test Item Value Reference Range Interpretation Comments UA Ketones (test code = UA Ketones) NEGATIVE [facility] AND [id number] 14:47:00 Test Item Value Reference Range Interpretation Comments UA Blood (test code = UA Blood) 1+ [facility] AND [id number] 14:47:00 Test Item Value Reference Range Interpretation Comments UA Protein (test code = UA Protein) 1+ [facility] AND [id number] 14:47:00 Test Item Value Reference Range Interpretation Comments UA Nitrite (test code = UA Nitrite) POSITIVE [facility] AND [id number] 14:47:00 Test Item Value Reference Range Interpretation Comments UA Leuk Est (test code = UA Leuk Est) 2[facility] [id number] 14:47:00 Test Item Value Reference Range Interpretation Comments UA WBC (test code = UA WBC) > OR = 60 [facility] [id number] 14:47:00 Test Item Value Reference Range Interpretation Comments UA RBC (test code = UA RBC) 0-2 [facility] [id number] 14:47:00 Test Item Value Reference Range Interpretation Comments UA Sq Epi (test code = UA Sq Epi) [facility]EN [facility] [id number] 14:47:00 Test Item Value Reference Range Interpretation Comments UA Bacteria (test code = UA Bacteria) MANY [facility] [id number] 14:47:00 Test Item Value Reference Range Interpretation Comments UA Hyal Cast (test code = UA Hyal NONE SEEN Cast) [facility] AND [id number] 14:47:00 Test Item Value Reference Range Interpretation Comments UA Reflex (test code CULTURE INDICATED - = UA Reflex) RESULTS TO FOLLOW [facility] [id number] 14:47:00 Test Item Value Reference Range Interpretation Comments U Creat mg/dL (test code = U Creat 114 20-275 mg/dL) [facility] [id number] 14:47:00 Test Item Value Reference Range Interpretation Comments U Alb (test code = U Alb) 16.7 [facility] [id number] 14:47:00 Test Item Value Reference Range Interpretation Comments U Alb/Crea (test code = U Alb/Crea) 146 [facility] [id number] 14:47:00 Test Item Value Reference Range Interpretation Comments Vitamin D, 25-OH, Total (test code = 37 30-100 Vitamin D, 25-OH, Total) [facility] [id number] 14:47:00 Test Item Value Reference Range Interpretation Comments U Creat mg/dL (test code = U Creat 114 20-275 mg/dL) [facility] [id number] 14:47:00 Test Item Value Reference Range Interpretation Comments U Prot/Creat (test code = U Prot/Creat) 430 21-161 [facility]2020-08-06 14:47:00 Test Item Value Reference Range Interpretation Comments U Prot/Creat (test code = U 0.430 1 0.021-0.161 Prot/Creat) [facility]2020-08-06 14:47:00 Test Item Value Reference Range Interpretation Comments U Protein (test code = U Protein) 49 5-24 [place] [id number] 14:47:00 Test Item Value Reference Range Interpretation Comments Glucose Lvl (test code = Glucose Lvl) 103 65-99 [place] 925150-08-06 14:47:00 Test Item Value Reference Range Interpretation Comments BUN (test code = BUN) 24 7-25 [facility]2020-08-06 14:47:00 Test Item Value Reference Range Interpretation Comments Creatinine Lvl (test code = Creatinine 1.32 0.50-0.99 Lvl) [facility]2020-08-06 14:47:00 Test Item Value Reference Range Interpretation Comments eGFR NON-AFR. MOLDOVAN (test code = 43 eGFR NON-AFR. MOLDOVAN) [facility]2020-08-06 14:47:00 Test Item Value Reference Range Interpretation Comments eGFR (test code = eGFR 50 ) [facility]2020-08-06 14:47:00 Test Item Value Reference Range Interpretation Comments B/C Ratio (test code = B/C Ratio) 18 6-22 [facility]2020-08-06 14:47:00 Test Item Value Reference Range Interpretation Comments Sodium Lvl (test code = Sodium Lvl) 138 135-146 [facility]2020-08-06 14:47:00 Test Item Value Reference Range Interpretation Comments Potassium Lvl (test code = Potassium 4.4 3.5-5.3 Lvl) [facility]2020-08-06 14:47:00 Test Item Value Reference Range Interpretation Comments Chloride Lvl (test code = Chloride Lvl) 102 98-110 [place] 925150-08-06 14:47:00 Test Item Value Reference Range Interpretation Comments CO2 (test code = CO2) 30 20-32 [place] 925150-08-06 14:47:00 Test Item Value Reference Range Interpretation Comments Calcium Lvl (test code = Calcium Lvl) 9.4 8.6-10.4 [facility]2020-08-06 14:47:00 Test Item Value Reference Range Interpretation Comments Phosphorus (test code = Phosphorus) 4.8 2.5-4.5 [facility] [id number] 14:47:00 Test Item Value Reference Range Interpretation Comments Albumin Lvl (test code = Albumin Lvl) 3.9 3.6-5.1 [place] 669370-08-06 14:47:00 Test Item Value Reference Range Interpretation Comments Plt Count Estimated (test code = DECREASED Plt Count Estimated) [facility]YkoluloEWXAHCDZNO9583-06-45 14:47:00 Test Item Value Reference Range Interpretation Comments WBC X 10x3 (test code = WBC X 10x3) 7.2 3.8-10.8 [place] 669370-08-06 14:47:00 Test Item Value Reference Range Interpretation Comments RBC X 10x6 (test code = RBC X 10x6) 3.71 3.80-5.10 [place] [address]-08-06 14:47:00 Test Item Value Reference Range Interpretation Comments Hgb (test code = Hgb) 10.7 11.7-15.5 [facility] CenterRrhngeaGAWSQZBCJE4959-69-58 14:47:00 Test Item Value Reference Range Interpretation Comments Hct (test code = Hct) 33.9 35.0-45.0 [facility] [id number] 14:47:00 Test Item Value Reference Range Interpretation Comments MCV (test code = MCV) 91.4 80.0-100.0 [place] 669370-08-06 14:47:00 Test Item Value Reference Range Interpretation Comments MCH (test code = MCH) 28.8 pg 27.0-33.0 [place] 669370-08-06 14:47:00 Test Item Value Reference Range Interpretation Comments MCHC (test code = MCHC) 31.6 32.0-36.0 [place] 669370-08-06 14:47:00 Test Item Value Reference Range Interpretation Comments RDW (test code = RDW) 13.9 11.0-15.0 [place] 669370-08-06 14:47:00 Test Item Value Reference Range Interpretation Comments Platelet (test code = Platelet) 110 140-400 [facility]ZexrcrwBPZTNYJZOR1714-54-92 14:47:00 Test Item Value Reference Range Interpretation Comments MPV (test code = MPV) 11.7 7.5-12.5 [facility] CenterWxmyhqzVWIHMYUTQK2283-64-00 14:47:00 Test Item Value Reference Range Interpretation Comments Neutrophils # (test code = Neutrophils 5414 9058-8720 #) [facility] CenterLmuybjhKIFUDTAWBA8556-23-70 14:47:00 Test Item Value Reference Range Interpretation Comments Lymphocytes # (test code = Lymphocytes 6892 727-7108 #) [facility] CenterWblcxgiCJPTIHAPXK9225-90-74 14:47:00 Test Item Value Reference Range Interpretation Comments Monocytes # (test code = Monocytes #) 461 200-950 [facility] CenterOcwtbcySZZESLDQGU6544-38-02 14:47:00 Test Item Value Reference Range Interpretation Comments Eosinophils # (test code = Eosinophils 122 15-500 #) [facility]ClmpptmHYESAUXVOZ4604-51-39 14:47:00 Test Item Value Reference Range Interpretation Comments Basophils # (test code 50 See_Comment [Aut omated message] The = Basophils #) system which generated this result tra nsmitted reference range : <=200. The reference r edy was not used to int erpret this result as normal/abnormal . [facility]burgNirskubWZSPWRGLBQ1318-41-93 14:47:00 Test Item Value Reference Range Interpretation Comments Segs (test code = Segs) 75.2 [facility]burgAqjrjniBDACTCDCXI0668-12-68 14:47:00 Test Item Value Reference Range Interpretation Comments Lymphocytes (test code = Lymphocytes) 16.0 [facility] Cent[id number] 14:47:00 Test Item Value Reference Range Interpretation Comments Monocytes (test code = Monocytes) 6.4 [facility] CenterLrkaetcZWOAKMJHRB7110-30-73 14:47:00 Test Item Value Reference Range Interpretation Comments Eosinophils (test code = Eosinophils) 1.7 [facility] CenterUukeyvqFACUZBMCFE1293-66-30 14:47:00 Test Item Value Reference Range Interpretation Comments Basophils (test code = Basophils) 0.7 [facility] [id number] 14:47:00 Test Item Value Reference Range Interpretation Comments Result 2 (Urine Culture) See Result Comment (test code = Result 2 (Urine Culture)) [facility] AND [id number] 14:47:00 Test Item Value Reference Range Interpretation Comments UA Color (test code = UA Color) YELLOW [facility] AND [id number] 14:47:00 Test Item Value Reference Range Interpretation Comments UA Turbidity (test code = UA CLOUDY Turbidity) [facility] AND [id number] 14:47:00 Test Item Value Reference Range Interpretation Comments UA Spec Grav (test code = UA Spec 1.017 1 1.001-1.035 Grav) [facility] AND [id number] 14:47:00 Test Item Value Reference Range Interpretation Comments UA pH (test code = UA pH) 5.5 1 5.0-8.0 [facility] AND [id number] 14:47:00 Test Item Value Reference Range Interpretation Comments UA Glucose (test code = UA Glucose) NEGATIVE [facility] AND [id number] 14:47:00 Test Item Value Reference Range Interpretation Comments UA Bili (test code = UA Bili) NEGATIVE [facility] AND [id number] 14:47:00 Test Item Value Reference Range Interpretation Comments UA Ketones (test code = UA Ketones) NEGATIVE [facility] AND [id number] 14:47:00 Test Item Value Reference Range Interpretation Comments UA Blood (test code = UA Blood) 1+ [facility] AND [id number] 14:47:00 Test Item Value Reference Range Interpretation Comments UA Protein (test code = UA Protein) 1+ [facility] AND [id number] 14:47:00 Test Item Value Reference Range Interpretation Comments UA Nitrite (test code = UA Nitrite) POSITIVE [facility] AND [id number] 14:47:00 Test Item Value Reference Range Interpretation Comments UA Leuk Est (test code = UA Leuk Est) 2+ [facility] AND [id number] 14:47:00 Test Item Value Reference Range Interpretation Comments UA WBC (test code = UA WBC) > OR = 60 [facility] AND [id number] 14:47:00 Test Item Value Reference Range Interpretation Comments UA RBC (test code = UA RBC) 0-2 [facility] AND [id number] 14:47:00 Test Item Value Reference Range Interpretation Comments UA Sq Epi (test code = UA Sq Epi) [facility]EN [facility] [id number] 14:47:00 Test Item Value Reference Range Interpretation Comments UA Bacteria (test code = UA Bacteria) MANY [facility] [id number] 14:47:00 Test Item Value Reference Range Interpretation Comments UA Hyal Cast (test code = UA Hyal NONE SEEN Cast) [facility] [id number] 14:47:00 Test Item Value Reference Range Interpretation Comments UA Reflex (test code CULTURE INDICATED - = UA Reflex) RESULTS TO FOLLOW [facility] [id number] 14:47:00 Test Item Value Reference Range Interpretation Comments U Creat mg/dL (test code = U Creat 114 20-275 mg/dL) [facility] [id number] 14:47:00 Test Item Value Reference Range Interpretation Comments U Alb (test code = U Alb) 16.7 [facility] [id number] 14:47:00 Test Item Value Reference Range Interpretation Comments U Alb/Crea (test code = U Alb/Crea) 146 [facility] PROTEIN ELECTROPHORESIS-24HR [id number] 08:01:00 Test Item Value Reference Range Interpretation Comments CREATININE, 24 HOUR 1.45 g/24 h 0.50-2.15 URINE (test code = 52026137) PROTEIN/CREATININE 292 mg/g creat < OR = 114 H RATION (test code = 02022678) PROTEIN, TOTAL 24 HR UR 424 mg/24 h <150 H TEST PERFORMED (test code = 33760164) AT:[facility] [place] [id number] [place] [id number] Shanta BOYCE MD ALBUMIN (test code = 35 % 05381744) TTNSG-8-CFQEHWNBO (test 10 % code = 63567777) FFGTM-8-NZAARJDMJ (test 12 % code = 70973985) BETA GLOBULINS (test 25 % code = 87388674) GAMMA GLOBULINS (test 18 % code = 72347404) INTERPRETATION (test Albumin and code = 25046350) various dann bulin fractions detected on proteinelectrop ho resis. No abnormal protei n bands (Bence-Jonespro te inuria) detected.TEST PERFORMED AT:[facility] [place] [address] [facility].[place] [id number] BOYCE MD NEUTROPHIL CYTOPLASMIC [id number] 05:19:00 Test Item Value Reference Range Interpretation Comments ANCA SCREEN (test NEGATIVE NEGATIVE ANCA Scree n includes code = 98954760) evaluation for p-ANCA, c-ANCA andatypi alexandre p-ANCA. [...] ofpat ients with Crohn's disease .TEST PERFORMED AT:[facility] [id number] [place] [address]JGHTHOSCAR EISENBERG MD,PHD ,MICHI COMPREHENSIVE METABOLIC [id number] 06:25:00 Test Item Value Reference Range Interpretation [...] MORPH (test code = RBCMOR) NORMAL URINE [id number] 09:53:00 Test Item Value Reference Range Interpretation [...] = VD) 36.0 ng/mL 30.0-100.0 SERUM PROTEIN [id number] 06:20:00 Test Item Value Reference Range Interpretation Comments PROTEIN TOTAL (test 5.7 g/dL 6.1-8.1 L TEST PER FORMED AT:QUEST code = 97061265) DIAGNOSTICS -[id number] [facility] [address]YHCMLNIECY BOYCE MD ALBUMIN (test code = 3.2 g/dL 3.8-4.8 L 22046259) OKSUX-4-ANZPJMYIW 0.4 g/dL 0.2-0.3 H (test code = 32307743) QFRER-9-UAKXAOXOT 0.8 g/dL 0.5-0.9 (test code = 69190347) BETA 1 GLOBULIN (test 0.5 g/dL 0.4-0.6 code = 01891658) BETA 2 GLOBULIN (test 0.2 g/dL 0.2-0.5 code = 92853843) GAMMA GLOBULINS (test 0.6 g/dL 0.8-1.7 L code = 16660273) INTERPRETATION (test Pattern consistent with code = 02042426) an acute ph ase reactionConsist ent with hypogammaglobul inemia. Serum free ligh tchains or urine immuno fixation should be consi dered ifplasma cell d yscrasias are a possible clinicaldiagnos is.TEST PERFORMED AT:[facility] [facility].[place] [address]JMJGNNIECY BOYCE MD [id number] 06:13:00 Test Item Value Reference Range Interpretation Comments MAGNESIUM (test code = 48A) 1.7 mg/dL 1.8-2.4 L COMPREHENSIVE METABOLIC [id number] 06:13:00 Test Item Value Reference Range Interpretation [...] (test code = RBCMOR) NORMAL COMPREHENSIVE METABOLIC [id number] 05:30:00 Test Item Value Reference Range Interpretation [...] (test code = RBCMOR) NORMAL URINALYSIS WITH [id number] 06:44:00 Test Item Value Reference Range Interpretation [...] code = USPERM) /HPF NONE COMPREHENSIVE METABOLIC [id number] 05:24:00 Test Item Value Reference Range Interpretation [...] = RBCMOR) NORMAL U/S KIDNEY (RENAL)2019-06-06 23:20:42LOCATION: [id number]: 63-year-old female who presents with acute nontraumatic [...] jet was observed onthe color flow study.TROPONIN [id number] 07:14:00 Test Item Value Reference Range Interpretation Comments TROPONIN I (test code = A84) <0.015 ng/mL 0.000-0.045 COMPREHENSIVE METABOLIC [id number] 05:28:00 Test Item Value Reference Range Interpretation [...] (test code = RBCMOR) NORMAL COMPREHENSIVE METABOLIC [id number] 04:58:00 Test Item Value Reference Range Interpretation [...] (test code = MDIFF) NO NO CARDIAC [id number] 23:10:00 Test Item Value Reference Range Interpretation Comments TROPONIN I (test code = A84) <0.015 ng/mL 0.000-0.045 U/S VENOUS DOPPLER BALDO LOW [id number] 22:23:14LOCATION: [id number]: 63-year-old female who presents with bilateral leg [...] thrombosis in either of thispatient's legs. CARDIAC [id number] 16:50:00 Test Item Value Reference Range Interpretation Comments TROPONIN I (test code = A84) <0.015 ng/mL 0.000-0.045 BRAIN NATRIURETIC [id number] 14:39:00 Test Item Value Reference Range Interpretation Comments proBNP (test code = PBNP) 1337 pg/mL 0-125 H THYROID PANEL/SCREEN (TSH)2019-06-04 12:05:00 Test Item Value Reference Range Interpretation Comments TSH (test code = A57) 0.989 uIU/mL 0.358-3.740 [id number] 12:02:00 Test Item Value Reference Range Interpretation Comments CPK (test code = 32A) 98 IU/L 26-192 AMYLASE AND [id number] 12:02:00 Test Item Value Reference Range Interpretation Comments AMYLASE (test code = 10A) 19 U/L 28-100 L LIPASE (test code = 60A) 67 IU/L 73-393 L COMPREHENSIVE METABOLIC [id number] 12:02:00 Test Item Value Reference Range Interpretation [...] code = 31A) 41 IU/L <=78 TROPONIN [id number] 11:57:00 Test Item Value Reference Range Interpretation Comments TROPONIN I (test code = A84) <0.015 ng/mL 0.000-0.045 XR CHEST 1 VIEW [id number] 11:55:22EXAM: XR CHEST 1 VIEW PORTABLE.LOCATION: D4.HISTORY: [id number]: Chest pain.COMPARISON: Radiograph dated 05/12/2019.TECHNIQUE: Single AP view of the chest was obtained. FINDINGS:The heart is enlarged in size. Small left pleural effusion and left basilaropacities are present. There is elevation of the right hemidiaphragm. No acuteosseous abnormality is identified.IMPRESSION:Small left pleural effusion with left basilar opacities, which may representatelectasis or infiltrates.Cardiomegaly. PRO TIME AND [id number] 11:43:00 Test Item Value Reference Range Interpretation [...] (test code = RBCMOR) NORMAL CBC WITH [id number] 15:29:00 Test Item Value Reference Range Interpretation [...] NORMAL (1.5-3 um) NORMAL PLTMOR) BASIC METABOLIC [id number] 15:26:00 Test Item Value Reference Range Interpretation [...] code = 09D) 9.2 mg/dL 8.3-9.5 CARDIAC [id number] 06:04:00 Test Item Value Reference Range Interpretation Comments TROPONIN I (test code = A84) <0.015 ng/mL 0.000-0.045 BASIC METABOLIC [id number] 05:52:00 Test Item Value Reference Range Interpretation [...] MORPH (test code = RBCMOR) NORMAL CARDIAC [id number] 23:08:00 Test Item Value Reference Range Interpretation Comments TROPONIN I (test code = A84) <0.015 ng/mL 0.000-0.045 CT DISSECTION [id number] 19:26:35Exam: CT thorax PE protocol.Location: H 12History: [id number]: Chest painTechnique: Enhanced spiral slices were taken [...] code = A57) 0.706 uIU/mL 0.358-3.740 LIVER [id number] 18:28:00 Test Item Value Reference Range Interpretation [...] = 31A) 21 IU/L <=78 BRAIN NATRIURETIC [id number] 18:19:00 Test Item Value Reference Range Interpretation Comments proBNP (test code = PBNP) 518 pg/mL 0-125 H [id number] 18:15:00 Test Item Value Reference Range Interpretation Comments MAGNESIUM (test code = 48A) 1.9 mg/dL 1.8-2.4 H-[id number] 17:40:00 Test Item Value Reference Range Interpretation Comments D-DIMER (test code = <200 ng/mL D-DU 0-234 DDI) D-DIMER COMMENT (test *Level to rule out code = DDCOM) DVT or PE: <235 ng/mL D-DU* CARDIAC [id number] 17:31:00 Test Item Value Reference Range Interpretation Comments TROPONIN I (test code = A84) <0.015 ng/mL 0.000-0.045 BASIC METABOLIC [id number] 17:27:00 Test Item Value Reference Range Interpretation [...] LMW Heparin. Order Code is ANTI-XA PROTHROMBIN [id number] 17:26:00 Test Item Value Reference Range Interpretation Comments PT (test code = 12.0 s 9.8-13.6 TT) INR (test code = 1.1 INR) INRH (test code = SUGGESTED THERAPEUTIC INRH) RANGE FOR INR: 2.5 - 3.5 For Patients with Prosthetic Valves or Patients with recurrent Thromboembolic Events 2.0 - 3.0 For Most Other Applications XR CHEST 1 VIEW [id number] 17:04:28Portable AP chest, 1 viewLocation Code: [id number] HISTORY: Chest painCOMPARISON: NoneCOMMENT: Mild atelectasis is present within the lung bases. The costophrenic angles aresharp. The cardiomediastinalsilhouette is unremarkable. The bones are intact.IMPRESSION: Mild bibasilar atelectasis. Otherwise, no acute abnormalityCHEM [id number] 16:51:00 Test Item Value Reference Range Interpretation Comments Creatinine Lvl (test code = Creatinine 1.15 0.50-1.40 Lvl) [facility]2017-01-24 16:51:00 Test Item Value Reference Range Interpretation Comments BUN (test code = BUN) 16 7-22 [facility]2017-01-24 16:51:00 Test Item Value Reference Range Interpretation Comments Chloride Lvl (test code = Chloride Lvl) 109 95-109 [facility]2017-01-24 16:51:00 Test Item Value Reference Range Interpretation Comments Potassium Lvl (test code = Potassium 4.3 3.5-5.1 Lvl) [facility]2017-01-24 16:51:00 Test Item Value Reference Range Interpretation Comments Sodium Lvl (test code = Sodium Lvl) 144 135-145 [facility]2017-01-24 16:51:00 Test Item Value Reference Range Interpretation Comments CO2 (test code = CO2) [facility]2017-01-24 16:51:00 Test Item Value Reference Range Interpretation Comments Calcium Lvl (test code = Calcium Lvl) 8.4 8.5-10.5 [facility]2017-01-24 16:51:00 Test Item Value Reference Range Interpretation Comments AGAP (test code = AGAP) 11.3 10.0-20.0 [facility]2017-01-24 16:51:00 Test Item Value Reference Range Interpretation Comments Glucose Lvl (test code = Glucose Lvl) 109 70-99 [facility]2017-01-24 16:51:00 Test Item Value Reference Range Interpretation Comments eGFR (test code = eGFR) 52 [facility]2017-01-24 16:51:00 Test Item Value Reference Range Interpretation Comments Creatinine Lvl (test code = Creatinine 1.15 0.50-1.40 Lvl) [facility]2017-01-24 16:51:00 Test Item Value Reference Range Interpretation Comments BUN (test code = BUN) 16 05-12 [facility]2017-01-24 16:51:00 Test Item Value Reference Range Interpretation Comments Chloride Lvl (test code = Chloride Lvl) 109 95-109 [facility]2017-01-24 16:51:00 Test Item Value Reference Range Interpretation Comments Potassium Lvl (test code = Potassium 4.3 3.5-5.1 Lvl) [facility]2017-01-24 16:51:00 Test Item Value Reference Range Interpretation Comments Sodium Lvl (test code = Sodium Lvl) 144 135-145 [facility]2017-01-24 16:51:00 Test Item Value Reference Range Interpretation Comments CO2 (test code = CO2) [facility] [facility]2017-01-24 16:51:00 Test Item Value Reference Range Interpretation Comments Calcium Lvl (test code = Calcium Lvl) 8.4 8.5-10.5 [facility]2017-01-24 16:51:00 Test Item Value Reference Range Interpretation Comments AGAP (test code = AGAP) 11.3 10.0-20.0 [facility]2017-01-24 16:51:00 Test Item Value Reference Range Interpretation Comments Glucose Lvl (test code = Glucose Lvl) 109 70-99 [facility]2017-01-24 16:51:00 Test Item Value Reference Range Interpretation Comments eGFR (test code = eGFR) 52 [facility]2017-01-24 16:51:00 Test Item Value Reference Range Interpretation Comments Creatinine Lvl (test code = Creatinine 1.15 0.50-1.40 Lvl) [facility]2017-01-24 16:51:00 Test Item Value Reference Range Interpretation Comments BUN (test code = BUN) 16 - [facility]2017-01-24 16:51:00 Test Item Value Reference Range Interpretation Comments Chloride Lvl (test code = Chloride Lvl) 109 95-109 [facility]2017-01-24 16:51:00 Test Item Value Reference Range Interpretation Comments Potassium Lvl (test code = Potassium 4.3 3.5-5.1 Lvl) [facility]2017-01-24 16:51:00 Test Item Value Reference Range Interpretation Comments Sodium Lvl (test code = Sodium Lvl) 144 135-145 [facility]2017-01-24 16:51:00 Test Item Value Reference Range Interpretation Comments CO2 (test code = CO2) 28 24-32 [facility]2017-01-24 16:51:00 Test Item Value Reference Range Interpretation Comments Calcium Lvl (test code = Calcium Lvl) 8.4 8.5-10.5 [facility]2017-01-24 16:51:00 Test Item Value Reference Range Interpretation Comments AGAP (test code = AGAP) 11.3 10.0-20.0 [facility]2017-01-24 16:51:00 Test Item Value Reference Range Interpretation Comments Glucose Lvl (test code = Glucose Lvl) 109 70-99 [facility]2017-01-24 16:51:00 Test Item Value Reference Range Interpretation Comments eGFR (test code = eGFR) 52 [facility]2017-01-24 16:51:00 Test Item Value Reference Range Interpretation Comments Creatinine Lvl (test code = Creatinine 1.15 0.50-1.40 Lvl) [facility]2017-01-24 16:51:00 Test Item Value Reference Range Interpretation Comments BUN (test code = BUN) 16 7-22 [facility]2017-01-24 16:51:00 Test Item Value Reference Range Interpretation Comments Chloride Lvl (test code = Chloride Lvl) 109 95-109 [facility]2017-01-24 16:51:00 Test Item Value Reference Range Interpretation Comments Potassium Lvl (test code = Potassium 4.3 3.5-5.1 Lvl) [facility]2017-01-24 16:51:00 Test Item Value Reference Range Interpretation Comments Sodium Lvl (test code = Sodium Lvl) 144 135-145 [facility]2017-01-24 16:51:00 Test Item Value Reference Range Interpretation Comments CO2 (test code = CO2) 28 24-32 [facility]2017-01-24 16:51:00 Test Item Value Reference Range Interpretation Comments Calcium Lvl (test code = Calcium Lvl) 8.4 8.5-10.5 [facility]2017-01-24 16:51:00 Test Item Value Reference Range Interpretation Comments AGAP (test code = AGAP) 11.3 10.0-20.0 [facility]2017-01-24 16:51:00 Test Item Value Reference Range Interpretation Comments Glucose Lvl (test code = Glucose Lvl) 109 70-99 [facility]2017-01-24 16:51:00 Test Item Value Reference Range Interpretation Comments eGFR (test code = eGFR) 52 [facility]
[2022-09-23] MEDS ORDERED: ALBUTEROL 2.5 MG/3 ML NEB SOL ONE ×2 (09:26→09:47)
[2022-09-23] MEDS ORDERED: CALCIUM GLUCONATE 1 GM IVPB 1 GM/50 ML BAG IV ONE (09:27)
[2022-09-23] MEDS ORDERED: GLUCAGON 1 MG/VIAL ONE (09:27)
[2022-09-23] MEDS ORDERED: NA CHLORIDE 0.9% 1,000 ML ONE (09:27)
[2022-09-23] MEDS ORDERED: IPRATROPIUM BROM 0.5MG/2.5ML ONE (09:44)
[2022-09-23 09:45] LABS: Absolute Lymphocytes (CBC) 0.9 K/uL (0.7-4.9); Hematocrit 29.3 % (36.0-45.0); MCV 98.9 fL (80-100); MPV 7.9 fL (7.6-11.3); RBC Red Blood Cell Count 2.96 M/uL (3.86-4.86)
[2022-09-23 10:20] LABS: Albumin 3.2 g/dL (3.4-5.0); Bilirubin Direct 0.4 mg/dL (0-0.2); Bilirubin Total 1.3 mg/dL (0.2-1.0); Magnesium 2.1 mg/dL (1.8-2.4); Potassium 3.2 mmol/L (3.5-5.1); Protein, Total 6.6 g/dL (6.4-8.2); Troponin High Sensitivity 27.2 pg/mL (<58.9)
[2022-09-23 10:47] LABS: Blood Morphology Comment NOT SEEN (NOT SEEN); Platelet Estimate DECR
[2022-09-23 10:48] LABS: SARS-CoV-2 Antigen Rapid Res Negative (Negative)
--- NOTE | 2022-09-23 10:48 | RAD REPORT ---
[facility] 10[facility]30 am CLINICAL HISTORY: Cough COMPARISON: September 01, 2022 FINDINGS: The lungs appear clear of acute infiltrate. The heart is borderline enlarged Central venous catheter in place. Chronic elevation right hemidiaphragm
[2022-09-23 10:50] LABS: Protime INR 1.27
--- NOTE | 2022-09-23 10:50 | ER ---
Nurse's Notes [facility] Name: Kassie De Jesus Age: 67 yrs Sex: Female : 1955 Arrival Date: 09/23/2022 Time: 09:10 Bed 2 Private MD: Diagnosis: Persistent atrial fibrillation-WITH SVR;Bradycardia, unspecified;Hypokalemia;End stage renal disease-ON HD;Anemia, unspecified Presentation: 09/23 09:12 Chief complaint: EMS states: client was at dialysis for 30min when she became kc6 hypotensive, systolic in the 70's and 80's. client was afib in the 40's and 50's en route. Coronavirus screen: Vaccine status: Patient reports being unvaccinated. At this time, the client does not indicate any symptoms associated with coronavirus-19. Ebola Screen: No symptoms or risks identified at this time. Initial Sepsis Screen: Does the patient meet any 2 criteria? Systolic BP < 90 mmHg. Mean Arterial Pressure (MAP) < 65. Does the patient have a suspected source of infection? No. Patient's initial sepsis screen is negative. Risk Assessment: Do you want to hurt yourself or someone else? Patient reports no desire to harm self or others. Onset of symptoms was September 23, 2022. 09:12 Method Of Arrival: EMS: [facility] kc6 09:12 Acuity: LENI 2 jd3 Triage Assessment: 09:16 General: Appears in no apparent distress. comfortable, Behavior is calm, cooperative, kc6 appropriate for age, drowsy. Pain: Denies pain. EENT: No signs and/or symptoms were reported regarding the EENT system. Neuro: Newman Agitation-Sedation Scale (RASS): -1 Drowsy Level of Consciousness is awake, alert, obeys commands, lethargic, Oriented to person, place, time, situation, Appropriate for age. Respiratory: Airway is patent Trachea midline Respiratory effort is even, unlabored, Respiratory pattern is regular, symmetrical, Breath sounds are clear bilaterally. GI: No signs and/or symptoms were reported involving the gastrointestinal system. : No signs and/or symptoms were reported regarding the genitourinary system. Derm: No signs and/or symptoms reported regarding the dermatologic system. Skin is intact, Skin is dry, Skin is pale, Skin temperature is warm. Musculoskeletal: No signs and/or symptoms reported regarding the musculoskeletal system. Circulation, motion, and sensation intact. Capillary refill < 3 seconds, Range of motion: intact in all extremities. 09:16 Cardiovascular: Heart tones S1 S2 present Capillary refill < 3 seconds Dialysis shunt: kc6 in the anterior aspect of left upper chest, with no erythema, with no edema, no bleeding noted. Historical: - Allergies: 09:15 Bactrim; kc6 09:15 cefepime; kc6 09:15 Codeine; kc6 09:15 PENICILLINS; kc6 09:15 Levofloxacin; kc6 09:15 Morphine; itching; kc6 09:15 QUINOLONES; kc6 - Home Meds: 09:15 midodrine oral [Active]; kc6 09:20 Alphagan P ophthalmic (eye) 1 drop twice a day [Active]; midodrine 5 mg oral tab PRN jd3 with dialysis [Active]; apixaban 2.5 mg oral tab 1 tab 2 times per day [Active]; bumetanide 2 mg Oral tab 1 tab once daily [Active]; digoxin 125 mcg (0.125 mg) Oral tab 1 tab 3 X weekly [Active]; pantoprazole 40 mg oral TbEC 1 tab once daily [Active]; metoprolol tartrate 25 mg Oral tab 1 tab 2 times per day [Active]; midodrine 10 mg oral tab 1 tab Q8H, don't take before dialysis, bring pills to traetment. [Active]; - PMHx: 09:15 Atrial fibrillation; Dialysis; High Cholesterol; Congestive heart failure; Hypertensive kc6 disorder; stage 4 kidney failure; - PSHx: 09:15 back surgery; Dialysis catheter LEFT upper chest; kc6 - Immunization history:: Client reports having NOT received the Covid vaccine. Flu vaccine is up to date. - Social history:: Smoking status: Patient denies any tobacco usage or history of. Screenin:19 Abuse screen: Denies threats or abuse. Denies injuries from another. Nutritional kc6 screening: No deficits noted. Tuberculosis screening: No symptoms or risk factors identified. Fall Risk No fall in past 12 months (0 pts). No secondary diagnosis (0 pts). IV access (20 points). Ambulatory Aid- None/Bed Rest/Nurse Assist (0 pts). Gait- Normal/Bed Rest/Wheelchair (0 pts) Mental Status- Oriented to own ability (0 pts). Total Smith Fall Scale indicates No Risk (0-24 pts). Assessment: 09:19 Reassessment: please see triage assessment. kc6 10:25 Reassessment: No changes from previously documented assessment. Patient and/or family jd3 updated on plan of care and expected duration. Pain level reassessed. Patient is alert, oriented x 3, equal unlabored respirations, skin warm/dry/pink. 11:25 Reassessment: Patient appears in no apparent distress at this time. No changes from [facility] previously documented assessment. Patient and/or family updated on plan of care and expected duration. Pain level reassessed. Patient is alert, oriented x 3, equal unlabored respirations, skin warm/dry/pink. Patient denies pain at this time. Patient states feeling better. Patient states symptoms have improved. 12:25 Reassessment: Patient appears in no apparent distress at this time. No changes from [facility] previously documented assessment. Patient and/or family updated on plan of care and expected duration. Pain level reassessed. Patient is alert, oriented x 3, equal unlabored respirations, skin warm/dry/pink. Patient denies pain at this time. Patient states feeling better. Patient states symptoms have improved. Vital Signs: 09:12 BP 83 / 50; Pulse 40; Resp 19 S; Temp 97.6(O); Pulse Ox 96% on R/A; Weight 102.51 kg kc6 (R); Height 5 ft. 7 in. (170.18 cm) (R); Pain 0/10; 10:24 BP 113 / 62; Pulse 44; Resp 19; Pulse Ox 100% on Nebulizer Mask; jd3 11:09 BP 109 / 52; Pulse 69; Resp 22 S; Pulse Ox 100% on R/A; kc6 12:40 BP 98 / 57; Pulse 65; Resp 12 S; Pulse Ox 96% on R/A; kc6 09:12 Body Mass Index 35.40 (102.51 kg, 170.18 cm) 6 ED Course: 09:10 Patient arrived in ED. 6 09:12 Brooke Prajapati RN is Primary Nurse. kc6 09:15 Adrian Lin MD is Attending Physician. [facility] 09:15 Triage completed. kc6 09:19 Arm band placed on. kc6 09:19 Patient has correct armband on for positive identification. Placed in gown. Bed in low kc6 position. Call light in reach. Side rails up X2. Adult w/ patient. 09:27 Inserted saline lock: 18 gauge in right antecubital area, using aseptic technique. jd3 Blood collected. placed by student nurse observed by Corbin ROBERTS and José Luis RN. 09:48 SARS RAPID Sent. kc6 10:31 XRAY Chest (1 view) In Process Unspecified. EDMS 10:34 intiated a transfer with Gabriela Russ from the [facility]. 11:19 administrative approval given by Gabriela Russ/ patient has been accepted to [facility] [address] [place] [id number] bed 7/ Dr. Ja Richter has accepted the patient in transfer. report to be called to [phone]. 12:20 No provider procedures requiring assistance completed. Patient transferred, IV remains kc6 in place. Administered Medications: 09:27 Not Given (Duplicate Order): NS 0.9% 1000 ml IV at 125 ml/hr continuous [place] 09:35 Drug: NS 0.45 % 1000 ml Route: IV; Rate: 75 ml/hr; Site: right antecubital; jd3 09:45 Drug: GlucaGen (glucagon) 1 mg Route: IVP; Site: right antecubital; jd3 10:45 Follow up: Response: No adverse reaction; Blood sugar is elevated kc6 09:50 Drug: Albuterol - atroVENT (ipratropium) (3:1) (2.5 mg - 0.5 mg) 3 ml Route: Nebulizer; jd3 10:50 Follow up: Response: No adverse reaction kc6 09:58 Drug: Calcium Gluconate 1 grams Route: IVPB; Infused Over: 20 mins; Site: right jd3 antecubital; 10:24 Follow up: Response: No adverse reaction; IV Status: Completed infusion; IV Intake: jd3 100ml Medication: 12:20 VIS not applicable for this client. kc6 Intake: 10:24 IV: 100ml; Total: 100ml. jd3 Outcome: 10:49 ER care complete, transfer ordered by . [place]idad 12:19 Transferred by ground EMS to [facility], Transfer form completed. kc6 Note: report given to ARMANDO Aquino 12:19 Condition: stable 12:19 Instructed on the need for transfer. 13:59 Patient left the ED. kc6 Signatures: Dispatcher [employer] EDAdrian Wallace MD MD cha Davies, Jonathon, RN RN jd3 Gabriela Dewitt Kaitlyn, RN RN kc6 Corrections: (The following items were deleted from the chart) 09:33 09:12 Acuity: LENI 3 kc6 jd3 11:08 10:31 Neuro: Seizure activity Type of seizure: grand mal seizure. Seizure lasted kc6 approximately 1 minutes. Patient is post-ictal at this time. kc6 11:08 10:31 Neuro: Seizure activity Type of seizure: grand mal seizure. Seizure lasted kc6 approximately 1 minutes. Patient is post-ictal at this time. kc6 12:19 09:16 Cardiovascular: Heart tones S1 S2 present Capillary refill < 3 seconds Rhythm is kc6 atrial fibrillation Dialysis shunt: in the anterior aspect of left upper chest, with palpable thrill, with auscultated bruit, with no erythema, with no edema, no bleeding noted kc6
--- NOTE | 2022-09-23 10:50 | EDPHYS ---
Physician Documentation [facility] Name: Kassie De Jesus Age: 67 yrs Sex: Female : 1955 Arrival Date: 09/23/2022 Time: 09:10 Bed 2 Private MD: ED Physician Adrian Lin HPI: 09/23 09:28 This 67 yrs old Female presents to ER via EMS with complaints of LOW BP, LOW trinidad HEART RATE. 09:28 The patient has shortness of breath at rest. Onset: The symptoms/episode began/occurred trinidad just prior to arrival. Duration: The symptoms are continuous, and are unchanged since they started. The patient's shortness of breath is aggravated by nothing, is alleviated by nothing. SENT FROM DIALYSIS. Associated signs and symptoms: Pertinent positives: non-productive cough. Severity of symptoms: At their worst the symptoms were mild moderate in the emergency department the symptoms are unchanged. Onset: The symptoms/episode began/occurred this morning. The patient has experienced similar episodes in the past. Historical: - Allergies: 09:15 Bactrim; kc6 09:15 cefepime; kc6 09:15 Codeine; kc6 09:15 PENICILLINS; kc6 09:15 Levofloxacin; kc6 09:15 Morphine; itching; kc6 09:15 QUINOLONES; kc6 - Home Meds: 09:15 midodrine oral [Active]; kc6 09:20 Alphagan P ophthalmic (eye) 1 drop twice a day [Active]; midodrine 5 mg oral tab PRN jd3 with dialysis [Active]; apixaban 2.5 mg oral tab 1 tab 2 times per day [Active]; bumetanide 2 mg Oral tab 1 tab once daily [Active]; digoxin 125 mcg (0.125 mg) Oral tab 1 tab 3 X weekly [Active]; pantoprazole 40 mg oral TbEC 1 tab once daily [Active]; metoprolol tartrate 25 mg Oral tab 1 tab 2 times per day [Active]; midodrine 10 mg oral tab 1 tab Q8H, don't take before dialysis, bring pills to traetment. [Active]; - PMHx: 09:15 Atrial fibrillation; Dialysis; High Cholesterol; Congestive heart failure; Hypertensive kc6 disorder; stage 4 kidney failure; - PSHx: 09:15 back surgery; Dialysis catheter LEFT upper chest; kc6 - Immunization history:: Client reports having NOT received the Covid vaccine. Flu vaccine is up to date. - Social history:: Smoking status: Patient denies any tobacco usage or history of. ROS: 09:32 Constitutional: Negative for fever, chills, and weight loss, Eyes: Negative for injury, [place]inidad pain, redness, and discharge, ENT: Negative for injury, pain, and discharge, Neck: Negative for injury, pain, and swelling, Abdomen/GI: Negative for abdominal pain, nausea, vomiting, diarrhea, and constipation, Back: Negative for injury and pain, : Negative for injury, bleeding, discharge, and swelling, MS/Extremity: Negative for injury and deformity, Skin: Negative for injury, rash, and discoloration, Neuro: Negative for headache, weakness, numbness, tingling, and seizure, Psych: Negative for depression, anxiety, suicide ideation, homicidal ideation, and hallucinations, Allergy/Immunology: Negative for hives, rash, and allergies, Endocrine: Negative for neck swelling, polydipsia, polyuria, polyphagia, and marked weight changes, Hematologic/Lymphatic: Negative for swollen nodes, abnormal bleeding, and unusual bruising. 09:32 Cardiovascular: Positive for palpitations. 09:32 Respiratory: Positive for shortness of breath. Exam: 09:32 Constitutional: This is a well developed, well nourished patient who is awake, alert, trinidad and in no acute distress. Head/Face: Normocephalic, atraumatic. Eyes: Pupils equal round and reactive to light, extra-ocular motions intact. Lids and lashes normal. Conjunctiva and sclera are non-icteric and not injected. Cornea within normal limits. Periorbital areas with no swelling, redness, or edema. ENT: Nares patent. No nasal discharge, no septal abnormalities noted. Tympanic membranes are normal and external auditory canals are clear. Oropharynx with no redness, swelling, or masses, exudates, or evidence of obstruction, uvula midline. Mucous membranes moist. Neck: Trachea midline, no thyromegaly or masses palpated, and no cervical lymphadenopathy. Supple, full range of motion without nuchal rigidity, or vertebral point tenderness. No Meningismus. Chest/axilla: Normal chest wall appearance and motion. Nontender with no deformity. No lesions are appreciated. Abdomen/GI: Soft, non-tender, with normal bowel sounds. No distension or tympany. No guarding or rebound. No evidence of tenderness throughout. Back: No spinal tenderness. No costovertebral tenderness. Full range of motion. Female : Normal external genitalia. Skin: Warm, dry with normal turgor. Normal color with no rashes, no lesions, and no evidence of cellulitis. MS/ Extremity: Pulses equal, no cyanosis. Neurovascular intact. Full, normal range of motion. Psych: Awake, alert, with orientation to person, place and time. Behavior, mood, and affect are within normal limits. 09:32 Cardiovascular: Rate: bradycardic, actual rate is 40 bpm, Rhythm: irregularly irregular, Pulses: Pulses are 3+ in bilateral radial, brachial, femoral, popliteal, posterior tibial and and dorsalis pedis arteries.. Heart sounds: normal, Edema: 2+ edema to level of left midcalf and right midcalf, JVD: is noted bilaterally, to 2 cm. 09:46 ECG was reviewed by the Attending Physician. [facility] Vital Signs: 09:12 BP 83 / 50; Pulse 40; Resp 19 S; Temp 97.6(O); Pulse Ox 96% on R/A; Weight 102.51 kg kc6 (R); Height 5 ft. 7 in. (170.18 cm) (R); Pain 0/10; 10:24 BP 113 / 62; Pulse 44; Resp 19; Pulse Ox 100% on Nebulizer Mask; jd3 11:09 BP 109 / 52; Pulse 69; Resp 22 S; Pulse Ox 100% on R/A; kc6 12:40 BP 98 / 57; Pulse 65; Resp 12 S; Pulse Ox 96% on R/A; kc6 09:12 Body Mass Index 35.40 (102.51 kg, 170.18 cm) kc6 MDM: 09:15 Patient medically screened. trinidad 09:50 Differential diagnosis: Anemia CHF exacerbation, Chronic Obstructive Pulmonary Disease trinidad Myocardial Infarction pneumonia, pulmonary edema, reactive airway disease, Sepsis Unstable Angina. Antibiotic administration: Not indicated. Differential Diagnosis sepsis. The patient's Wells Deep Vein Thrombosis Score was calculated as follows: Total Score: 0-2 Pts- Low Risk. The patient's pulmonary embolism risk score was calculated as follows: Total Score: 0-2 points. This patient was found to be at low risk for a pulmonary embolism by using the Well's assessment criteria. Immunization status: Pneumococcal vaccine: Influenza vaccine: Data reviewed: vital signs, nurses notes, EMS record, lab test result(s), EKG, radiologic studies, plain films. Data interpreted: teletypesetter monitor: rate is 96 beats/min, rhythm is atrial fibrillation, Pulse oximetry: on room air is 92 %. Test interpretation: by ED physician or midlevel provider: ECG, plain radiologic studies. 09/23 09:15 Order name: Basic Metabolic Panel; Complete Time: 10:[address] [facility] 09/23 09:15 Order name: CBC with Diff; Complete Time: 11:[address] [facility] 09/23 09:15 Order name: LFT's; Complete Time: 10:[address] [facility] 09/23 09:15 Order name: Magnesium; Complete Time: 10:[address] [facility] 09/23 09:15 Order name: NT PRO-BNP; Complete Time: 10:[address] [facility] 09/23 09:15 Order name: PT-INR; Complete Time: 11:[address] [facility] 09/23 09:15 Order name: Troponin HS; Complete Time: 10:[address] [facility] 09/23 09:15 Order name: XRAY Chest (1 view); Complete Time: 11:[address] [facility] 09/23 09:15 Order name: SARS RAPID; Complete Time: 11:[address] [facility] 09/23 09:19 Order name: Digoxin; Complete Time: 10:[address] [facility] 09/23 10:47 Order name: Manual Differential; Complete Time: 11:08 EDMT 09/23 09:15 Order name: EKG; Complete Time: 09:[address] [facility] 09/23 09:15 Order name: Cardiac monitoring; Complete Time: 09:[address] [facility] 09/23 09:15 Order name: EKG - Nurse/Tech; Complete Time: 09:[address] [facility] 09/23 09:15 Order name: IV Saline Lock; Complete Time: 09:[address] [facility] 09/23 09:15 Order name: Labs collected and sent; Complete Time: 09:[address] [facility] 09/23 09:15 Order name: O2 Per Protocol; Complete Time: 09:[address] [facility] 09/23 09:15 Order name: O2 Sat Monitoring; Complete Time: 09:[address] [facility] EC:46 Rate is 50 beats/min. Rhythm is irregularly irregular. QRS [place] is Normal. AR interval trinidad is normal. QRS interval is normal. QT interval is normal. No Q waves. T waves are Normal. No ST changes noted. Clinical impression: Atrial Fibrillation. Interpreted by me. Reviewed by me. Administered Medications: 09:27 Not Given (Duplicate Order): NS 0.9% 1000 ml IV at 125 ml/hr continuous [place]in[place] 09:35 Drug: NS 0.45 % 1000 ml Route: IV; Rate: 75 ml/hr; Site: right antecubital; jd3 09:45 Drug: GlucaGen (glucagon) 1 mg Route: IVP; Site: right antecubital; jd3 10:45 Follow up: Response: No adverse reaction; Blood sugar is elevated kc6 09:50 Drug: Albuterol - atroVENT (ipratropium) (3:1) (2.5 mg - 0.5 mg) 3 ml Route: Nebulizer; jd3 10:50 Follow up: Response: No adverse reaction kc6 09:58 Drug: Calcium Gluconate 1 grams Route: IVPB; Infused Over: 20 mins; Site: right jd3 antecubital; 10:24 Follow up: Response: No adverse reaction; IV Status: Completed infusion; IV Intake: jd3 100ml Disposition Summary: 09/23/22 10:49 Transfer Ordered Transfer Location: [facility] [place] Reason: Higher level of care trin[place] Condition: Fair [place] Problem: an ongoing problem trin[place] Symptoms: have worsened trinidad Accepting Physician: TO ICU(09/23/22 13:59) kc6 Diagnosis - Persistent atrial fibrillation - WITH SVR tr[place] - Bradycardia, unspecified [place] - Hypokalemia [place] - End stage renal disease - ON HD [place] - Anemia, unspecified [place] Forms: - Medication Reconciliation Form trinidad - SBAR form [place] Signatures: Dispatcher [employer] Adrian Cruz MD MD cha Davies, Jonathon, RN RN jd3 Brooke Prajapati RN RN kc6 Corrections: (The following items were deleted from the chart) 13:59 10:49 TO ICU [place] kc6
--- NOTE | 2022-09-23 13:12 | P.CNS ---
Date of Consult: 09/23/22 Reason for Consult: hypokalemia, ESRD Chief Complaint: low BP History of Present Illness: 66F w/ PMHx of ESRD on HD TTS, chronic diastolic heart failure, afib, anemia, & renal osteodystrophy, pt was sent from HD unit for hypotesnion pt with chronic HX of hypotension , on midodridne , today noticed to have very low BP during dialysis , that did not respond to midodrine, no fluid removed during HD , in ER pt received 1 liter of NS , BP improved, but she noticed to be bradycardic ROS General : weakness, HEENT: dizziness Resp: denies SOB, cough or wheezes Cardiovascular: denied chest pain, palpitation , no SOB GI: denies abdominal pain, diarrhea or constipation : denies dysuria, urgency, foamy urine or blood tinged urine Musculoskeletal: denies muscle aches, joint pain Endo: denies polyuria and and polydipsia Extre: denies pain numbness and swelling Physical exam General: AAOx3, NAD, obese HEENT PERRLA, moist mucose membrane neck: supple, no elevated JVD CHEST; CTAB, no wheezes or rales HEART : RRR. Normal S1,2 no murmur or rub Abd: soft, Nt Ext: edema , chronic venous stasis Skin : No rash A/P #End-stage renal disease on outpt HD TTS. HD access: #Hypokalemia #Symptomatic bradycardia #Hypotension #Anemia of Chronic kidney disease. #Chronic diastolic HF, afib. # Intradialytic hypotension. on midodrine. Plan No need for HD at this time , monitor potassium , will hold on replacement, BP improved , will hold IVF , plan to transfer pt to [facility] for further cardiology W/u Total time spent 65 minutes including documentation, reviewing labs , placing orders and discussing with medical team Allergies cefepime Allergy (Verified 10/26/21 06:30) Hives codeine Allergy (Verified 05/20/22 05:03) Itching levofloxacin Allergy (Verified 10/26/21 06:30) Hives/Rash morphine Allergy (Verified 05/20/22 05:03) Itching Penicillins Allergy (Verified 10/26/21 06:30) Hives/Rash sulfamethoxazole [From Bactrim] Allergy (Verified 05/20/22 05:03) Hives trimethoprim [From Bactrim] Allergy (Verified 05/20/22 05:03) Hives Home Medications: Apixaban [Eliquis] 2.5 mg PO BID 05/19/22 Bumetanide 1 tab PO DAILY 05/19/22 Digoxin [Lanoxin] 1 tab PO T,TH,S 05/19/22 Metoprolol Tartrate 1 tab PO BID 05/19/22 Midodrine HCl 1 tab PO TID 05/19/22 Pantoprazole [Protonix Tab*] 1 tab PO BID 05/19/22 Sevelamer Carbonate [Renvela] 800 mg PO TID 05/19/22 Dicyclomine [Bentyl*] 1 tab PO TID PRN 09/01/22 Ondansetron [Zofran (Odt)*] 8 mg PO TID PRN 09/01/22 Tizanidine [Zanaflex*] 1 tab PO BID 09/01/22 - Past Medical/Surgical History Diabetic: No -: Chronic hypotension -: Hyperlipidemia -: Chronic anticoagulation use -: History of nephrolithiasis requiring stent placement -: Recurrent UTI -: End-stage renal disease -: CHF -: HTN -: A-Fib -: tubal ligation -: dialysis port -: cholecystectomy -: right broken wrist -: lasik -: cataracts removed - Family History Sister Medical History: Cancer Notes: per pt, sister has lung cancer and is being treated for a "spot on her brain" - Social History Alcohol use: No CD- Drugs: No Caffeine use: Yes Physical Examination Laboratory Data (last 24 hrs) 09/23/22 10:34: PT 14.0 H, INR 1.27 09/23/22 09:22: WBC 7.20, Hgb 9.5 L, Hct 29.3 L, Plt Count 93 L 09/23/22 09:22: Sodium 138, Potassium 3.2 L, BUN 19 H, Creatinine 5.40 H*, Glucose 151 H, Magnesium 2.1, Total Bilirubin 1.3 H, AST 11 L, ALT 16, Alkaline Phosphatase 126 H
[2022-09-23 14:09] VITALS: TEMP 97.6
[2022-09-23 14:25] VITALS: BP 98/57; O2SAT 96
--- NOTE | 2022-09-25 13:52 | EKG ---
Test Date: 2022-09-23 Test Time: 09:38:51 Leather Flesher: JASPAL MEASUREMENT RESULTS: Intervals: Rate: 50 VA: QRSD: 94 QT: 454 QTc: 413 [place]: P: VA: QRS: 126 T: 163 INTERPRETIVE STATEMENTS: Atrial fibrillation with slow ventricular response Incomplete right bundle branch block Right ventricular hypertrophy with repolarization abnormality T wave abnormality, consider lateral ischemia or digitalis effect Abnormal ECG Compared to ECG 09/01/2022 11:11:53 Incomplete right bundle-branch block now present Early repolarization now present T-wave abnormality now present Possible ischemia now present ST (T wave) deviation no longer present Electronically Signed On 09-25-22 13:50:02 TRANSFER ENGINEER by Quentin Chamberlain
== END 2022-09-23 13:59 | disposition short-term general hospital (02) ==
LOC: ER 09:07
DX: I48.19 Other persistent atrial fibrillation (principal); E87.6 Hypokalemia; I13.2 Hypertensive heart and chronic kidney disease with heart failure and with stage 5 chronic kidney disease, or end stage renal disease; D64.9 Anemia, unspecified; R00.1 Bradycardia, unspecified; N18.6 End stage renal disease; I50.9 Heart failure, unspecified; E78.5 Hyperlipidemia, unspecified; Z99.2 Dependence on renal dialysis; Z88.0 Allergy status to penicillin; Z88.1 Allergy status to other antibiotic agents; Z88.5 Allergy status to narcotic agent; Z20.822 Contact with and (suspected) exposure to COVID-19
CPT/HCPCS: 96365; 93005; 85025; 80048; 36415; 83735; 85610; 80162; 80076; 84484; 83880; 71045; 94640; 96375; 99285; 87811; J1610; J7613 ×2; J7644; J0610; J7030

== ENCOUNTER 2022-10-14 07:47 | Inpatient (IN) | payer OTHER, BC ==
--- OUTSIDE RECORDS SUMMARY | 2022-10-14 08:10 | XMS REPORT | Continuity of Care Document ---
:1955 Author Organization [facility] t Address [address] [place] [address] Care Team Providers Name Role Phone ANTONELLA CARRILLO Primary Care Physician Unavailable Adam King Attending Clinician Unavailable TRE PENNINGTON Attending Clinician Unavailable Yaritza Reid MD Attending Clinician Annalee KINNEY, Keith Pantoja Attending Clinician Tre Pennington MD Attending Clinician YARITZA REID Attending Clinician Unavailable KORINA GUNN Attending Clinician Unavailable DO CY SOSA Attending Clinician Unavailable Weston KINNEY, Mary Godinez Attending Clinician [phone] Mary Heaton MD Attending Clinician Grzegorz KINNEY, Clifton Gamboa Attending Clinician + [phone] Pily KINNEY, Maddison Attending Clinician Taylor Cerna MA Attending Clinician Unavailable Quentin Chamberlain Attending Clinician Unavailable Ilana Attending Clinician Unavailable Jose C KINNEY, Taylor Laughlin Attending Clinician [phone] Laura Carbajal MD Attending Clinician Wendie KINNEY, Amos Attending Clinician Elroy Rutledge Attending Clinician Antonella Carrillo Attending Clinician Avis KINNEY, Ashley Klein Attending Clinician [phone] Travon Porras MD Attending Clinician Shaikh NIRMAL, Gutierrez Attending Clinician Jena Cool DO Attending Clinician Radu KINNEY, Puneet Goodson Attending Clinician Claudio KINNEY, Greg Carpenter Attending Clinician Mic Aiken Attending Clinician Unavailable Chris Carter Attending Clinician Unavailable Ras ROBERTS, Phuong Attending Clinician Unavailable Jermaine KINNEY, Francisco Sunshine Attending Clinician [place] KINNEY, Michelle Dowell Attending Clinician [phone] Robert Young MD Attending Clinician [phone] Nishi Shelton MD Attending Clinician Scott Flower MD Attending Clinician [email or web address] Attending Clinician Unavailable MD ASHLEY MARTÍNEZ Attending Clinician Unavailable KRISTIAN KIRKLAND Attending Clinician Unavailable NILESH NATION Attending Clinician Unavailable COURTNEY WHEAT Attending Clinician Unavailable MD COURTNEY WHEAT Attending Clinician Unavailable MD MARY HEATON Attending Clinician Unavailable MD MICHELLE GOLDEN Attending Clinician Unavailable Scott Flower Attending Clinician SCOTT FLOWER Attending Clinician Unavailable Tyrell Fitzgerald Attending Clinician Valarie Teran Attending Clinician FABIOLA RASHID Attending Clinician Unavailable DR EDUIN BARRAGAN Attending Clinician Unavailable Carlito Parmar Attending Clinician Reinaldo Smith Attending Clinician Jose Francisco Johnson Attending Clinician Marsha Lazo Attending Clinician Yusef Neil Attending Clinician Antonella Carrillo Admitting Clinician Unavailable YARITZA REID Admitting Clinician Unavailable SALVADOR GOMEZ Admitting Clinician [...] Type Policy Number Effective Date Expiration Date Padmini carbone MEDICARE A B [id number] 2021 00:00:00 [place] [id number] 2022 [place] 00:00:00 [place]: [id number] 2021 N[employer]IT[employer]IONS 00:00:00 Problems Condition Condition Condition Status Onset Resolution Last Treating Co mments Source Name Details Category Date Date Treatment Clinician Date Hypotensio Hypotensio Disease Active 2021-[address] [facility] [place] [id number] [facility] Chest pain Chest pain Disease Active 2021-10 M ethodi with high with high 1-05 st risk of risk of 00:00: Hospita acute acute 00 l coronary coronary syndrome syndrome Hyperkalem Hyperkalem Disease Active M ethodi ia ia 06-24 00:00: Hospita 00 l Fluid Fluid Disease [...] Disease Active M ethodi hyroidism hyroidism 07-14 00:00: Hospita 00 l Hyperurice Hyperurice Disease [...] Chronic Chronic Disease Active Methodi venous venous 9-23 st stasis stasis 00:00: Hospita 00 l Abdominal Abdominal Disease Active Met hodi pain pain 05-19 st 00:00: Hospita 00 l CHF CHF Disease Active Methodi (congestiv (congestiv 6-29 st e heart e heart 00:00: Hospita failure) failure) 00 l Flank pain Flank pain Disease Active M ethodi 6-18 st 00:00: Hospita 00 l Renal Renal Disease Active Overview: Method i stone stone 6-[address] 00:00: g of this Hospita 00 note l might be different from the original. Added automatic ally from request for surgery [id number] NATALYA NATALYA Diagnosis Active 2021-02-24 Mem oria Active 02-14 12:03:00 l 02/14/2021 00:00: Vicente n [facility] [place] Symptomati Symptomati Disease Active Overview : Methodi c anemia c anemia 4-[address] 00:00: g of this Hospita 00 note l might be different from the original. Added automatic ally from request for surgery [id number] Acute Acute Disease Active Methodi gallstone gallstone 3-12 st pancreatit pancreatit 00:00: Ho spita is is 00 l Hypervolem Hypervolem Disease Active M ethodi ia ia 2- st 00:00: Hospita 00 l Hypotensio Hypotensio [...] Active M ethodi of left of left 9 st leg leg 00:00: Hospita 00 l Bacteremia Bacteremia Disease Active M ethodi due to due to 9 st Pseudomona Pseudomona 00:00: Ho spita s s 00 l COLON COLON Diagnosis Active 2016-11-17 Mem oria CANCER CANCER 24 05:49:00 l SCREENING- SCREENING- 00:00: He rmann Z12.11 Z12.11 00 Active 11/14/2016 [place] R92.1 - R92.1 - Diagnosis Active 2016-04-[address] [facility] MAMMOGRAPH MAMMOGRAPH 01-31 15:55:00 l IC IC 00:01: Denis CALCIFCN CALCIFCN 00 FOUND ON FOUND ON Active 02/01/2016 OPID [place] Z12.31 - Z12.31 - Diagnosis Active 2015-11-[address] [facility] ENCNTR ENCNTR 11-12 07:08:00 l SCREEN SCREEN 00:01: Denis MAMMOGRAM MAMMOGRAM 00 FOR MA FOR MA Active 11/12/2015 OPID [place] RT WRIST RT WRIST Diagnosis Active 2016-12-[address] [facility] DISTAL DISTAL 1- 02:03:00 l RADIUS RADIUS 09:00: [place] CLSD FX CLSD FX 00 Active 10/22/2015 [facility] Abnormal Abnormal Disease Active Overview: Me thodi glucose glucose 7-[address] level [...] (disorder) (disorder) 8 00:23:22 l Active 00:00: [place] 06/10/2012 00 Problem 05/15/2016 Data migrated from [employer] on 03/20/15. MH OPID Brittany,MH OPID [place], SMR [place],SMR [facility] Cobalamin Cobalamin Disease Active Overview: Methodi deficiency deficiency 7-[address] 00:00: g of this Hospita 00 note l might be different from the original. Data migrated from [employer] on 03/20/15.D riley migrated from [employer] on 03/20/15.D riley migrated from [employer] on 03/20/15.D riley migrated from [employer] on 03/20/15. Hypertensi Hypertens Problem Active 2011-2016-05-15 Memoria ve episode satnam 7-10 00:23:22 l (disorder) episode 00:00: Karen nn (disorder) 00 Active 04/30/2012 Problem 05/15/2016 Data migrated from [employer] on 03/20/15. OPID Brittany, OPID [place], SMR [facility] [place] [facility] Calcificat Calcifica Problem Resolve 2022-04-22 Memoria ion of tion of d 03:11:55 l breast breast Denis (finding) (finding) Resolved Problem 04/22/2022 [facility], OPID Brittany, OPID [place], SMR [place] [place],[facility], [place] Acute Acute Problem Active 2020-02-08 Turner arnoldo urinary urinary 22:36:35 l tract tract Denis infection infection (disorder) (disorder) Active Problem 02/08/2020 Medical Group Chronic Chronic Problem Active 2020-02-08 Me moria renal renal 22:36:35 l impairment impairment He rmann (disorder) (disorder) Active Problem 02/08/2020 Medical Group, OPID Brittany, OPID [place], SMR [place] [place],[facility] [place] Benign Benign Problem Active 2022-04-22 Turner arnoldo essential essential 03:11:55 l hypertensi hypertensi He rmann on on (disorder) (disorder) Active Problem 04/22/2022 Medical Group, OPID Brittany, OPID [place], SMR [place] [place],[facility], [place] Cardiorena Cardioren Problem Active 2022-04-22 Memoria l syndrome al 03:11:55 l (disorder) syndrome Herm connie (disorder) Active Problem 04/22/2022 Medical Group, OPID [place], [place] Chronic Chronic Problem Active 2022-04-22 Me moria kidney kidney 03:11:55 l disease disease [place] (disorder) (disorder) Active Problem 04/22/2022 Medical Group, OPID [place], [place] Chronic Chronic Problem Active 2022-04-22 Me moria kidney kidney 03:11:55 l disease disease Denis stage 3 stage 3 (disorder) (disorder) Active Problem 04/22/2022 Medical Group, OPID [place], [place] Chronic Chronic Problem Active 2022-04-22 Me moria pain pain 03:11:55 l (finding) (finding) Herm connie Active Problem 04/22/2022 [facility] Group, [facility] [place], [place] Dependence Dependenc Problem Active 2022-04-22 Memoria on e on 03:11:55 l supplement supplement He lea al oxygen al oxygen (finding) (finding) Active Problem 04/22/2022 Medical Group, [place] Edema of Edema of Problem Active 2022-04-22 Memoria lower lower 03:11:55 l extremity extremity Herm connie (finding) (finding) Active Problem 04/22/2022 Medical Group, [facility]ID [place], [place] Hypertensi Hypertens Problem Active 2022-04-22 Memoria ve satnam 03:11:55 l disorder, disorder, Herm connie systemic systemic arterial arterial (disorder) (disorder) Active Problem 04/22/2022 Medical Group,[facility] [place], OPID [place], [place] Hypertensi Hypertens Problem Active 2022-04-22 Memoria ve renal satnam renal 03:11:55 l disease disease Denis (disorder) (disorder) Active Problem 04/22/2022 [facility] Group, OPID [place], [place] Lymphedema Lymphedem Problem Active 2022-04-22 Memoria of lower a of lower 03:11:55 l extremity extremity Herm connie (disorder) (disorder) Active Problem 04/22/2022 Medical Group, OPID [place], [place] Morbid Morbid Problem Active 2022-04-22 Turner arnoldo obesity obesity 03:11:55 l (disorder) (disorder) He rmconnie Active Problem 04/22/2022 Medical Group, OPID Brittnay, OPID [place], SMR [facility], [place] Post-disch Post-disc Problem Active 2022-04-22 Memoria arge harge 03:11:55 l follow-up follow-up Herm connie (finding) (finding) Active Problem 04/22/2022 Medical Group, [place] Stasis Stasis Problem Active 2022-04-22 Turner arnoldo ulcer ulcer 03:11:55 l (disorder) (disorder) He rmann Active Problem 04/22/2022 Medical Group, OP[facility] [place], [place] Swelling - Swelling Problem Active 2022-04-22 Memoria edema - - edema - 03:11:55 l symptom symptom Denis (finding) (finding) Active Problem 04/22/2022 Medical Group, OP[facility] [place], [place] Kidney Kidney Problem Active 2016-11-20 Turner arnoldo disease disease 03:07:28 l (disorder) (disorder) He rmann Active Problem 11/20/2016 [place] RIGHT RIGHT Diagnosis Active 2016-03-09 Me moria WRIST WRIST 15:06:00 l DISTAL DISTAL Denis RADIUS RADIUS CLSD FX CLSD FX Active [facility] DISTAL DISTAL Diagnosis Active 2016-04-21 Me moria RADIUS RADIUS 09:46:00 l CLSD FX CLSD FX Denis Active [facility] Trace Long-term Long-term Problem Active 2022-04-22 Memoria current current 03:11:55 l use of use of Denis drug drug therapy therapy (situation (situation ) ) Active Problem 04/22/2022 Medical Group Cholestero Cholester Problem 2016-01-01 Memoria l ol 05:02:18 l (substance (substance He rmann ) ) Problem 01/01/2016 [facility] Sleep Sleep Problem 2016-01-01 Turner arnoldo apnea apnea 05:02:18 l (finding) (finding) Herm connie Problem 01/01/2016 <sup>2</howell p>does not use cpap [facility] ESRD (end ESRD (end Disease Active [facility] renal renal Medical disease) disease) Center on on dialysis dialysis Acute Acute Problem Resolve 2016-05-15 2016-05-15 Memoria otitis otitis d 4-24 00:23:22 00:23:22 l media media 00:00: [place] (disorder) (disorder) 00 Resolved 02/12/2013 Problem 05/15/2016 Data migrated from [facility] on 05/08/15. ANTHONY Soto, OPID [place],MH SMR [facility] History of Past Illness Condition Condition Condition Status Onset Resolution Last Treating Co mments Source Name Details Category Date Date Treatment Clinician Date 2018-nCoV 2018-nCoV Problem 2022-04-22 2022-04-22 Memoria acute acute 04-19 03:11:55 03:11:55 l respirator respirator 21:13: He rmann y disease y disease 00 04/19/2022 04/22/2022 Medical Group Bronchitis Problem 2022-04-22 2022-04-22 Memoria , not Bronchitis 04-19 03:11:55 03:11:55 l specified , not 21:13: Denis as acute specified 00 or chronic as acute or chronic 04/19/2022 04/22/2022 Medical Group Other Other Problem 2020-102021-10-20 2021-10-20 Memoria abnormal abnormal 12-18 01:18:13 01:18:13 l glucose glucose 21:47: Denis 10/17/2021 00 10/20/2021 Medical Group Other long Other Problem 2020-102021-10-20 2021-10-20 Memoria term jail 12-18 01:18:13 01:18:13 l (current) (current) 21:46: Karoline rosales drug drug 00 therapy therapy 10/17/2021 10/20/2021 Medical Group Other Other Problem 2020-102021-10-20 2021-10-20 Memoria hyperlipid hyperlipid 12-18 01:18:13 01:18:13 l emia emia 21:45: Denis 10/17/2021 00 10/20/2021 Medical Group Essential Problem 2020-102021-10-20 2021-10-20 Memoria (primary) Essential 12-18 01:18:13 01:18:13 l hypertensi (primary) 21:44: Her hunt on hypertensi 00 on 10/17/2021 10/20/2021 Medical Group Muscle Muscle Problem 2020-102021-10-20 2021-10-20 Memoria spasm of spasm of 12-18 01:18:13 01:18:13 l back back 21:39: Denis 10/17/2021 00 10/20/2021 Medical Group Low back Low back Problem 2020-102021-10-20 2021-10-20 Memoria pain, pain, 12-18 01:18:13 01:18:13 l unspecifie unspecifie 21:38: He rmconnie d d 00 10/17/2021 10/20/2021 Medical Group Dependence Problem 2020-102021-09-12 2021-09-12 Memoria on Dependence 11-09 01:29:16 01:29:16 l supplement on 21:17: Vicente davis al oxygen supplement 00 al oxygen 09/09/2021 09/12/2021 Medical Group Unsteadine Problem 2020-102021-09-12 2021-09-12 Memoria ss on feet Unsteadine 11-09 01:29:16 01:29:16 l ss on feet 21:13: Vicente davis 09/09/2021 00 09/12/2021 Medical Group Weakness Weakness Problem 2020-102021-09-12 2021-09-12 Memoria 09/09/202111-09 01:29:16 01:29:16 l 09/12/2021 21:13: Vicente davis Medical 00 Group Allergies, Adverse Reactions, Alerts Allergy Allergy Status Severity Reaction(s) Onset Inactive Treating Comm ents Source Name Type Date Date Clinician Morphine Propensi Active [facility] adverse 00:[facility]: Medical reaction 00 Center s Penicill Propensi Active 2021-[address] in ty to -03 [facility] adverse 00:00: Medical reaction 00 Center s Quinolon Propensi Active 2021-[address] es ty to 2-03 [facility] adverse 00:00: Medical reaction 00 Center s Sulfamet Propensi Active 2021-[address] hoxazole ty to 2-03 [facility] -Trimeth adverse 00:00: Medical oprim reaction 00 Center s Cefepime Propensi Active 2021-[address] ty to 2-03 [facility] adverse 00:00: Medical reaction 00 Center s Codeine Propensi Active 2021-[address] ty to 2-03 [facility] adverse 00:00: Medical reaction 00 Center s Levoflox Propensi Active 2022-[address] acin ty to 2-03 [facility] adverse 00:00: Medical reaction 00 Center s SULFAMET Allergy Active 2021-[address] HOXAZOLE 2-03 [facility] -TRIMETH 00:00: Medical OPRIM 00 Center CEFEPIME Allergy Active 2021-[address] 2[facility]03 [facility] 00:[facility]: Medical 00 Center CODEINE Allergy Active 2021-[address] 2-03 [facility] 00:00: Medical 00 Center LEVOFLOX Allergy Active 2021-[address] ACIN 2-03 [facility] 00:00: Medical 00 Center MORPHINE Allergy Active Itching 2021-[address] 2-03 [facility] 00:[facility]: Medical 00 Center PENICILL Allergy Active 2021-[address] IN 2- [facility] 00:00: Medical 00 Center QUINOLON Allergy Active 2021-[address] ES 2- [facility] 00:00: Medical 00 [place] codeine DA Active [facility] 5-13 Clear 00:00: Rodriguez 00 [facility] sulfamet DA Active [facility] hoxazole 5-13 Clear 00:00: Rodriguez 00 [facility] trimetho DA Active [facility] prim 5-13 Clear 00:00: Rodriguez 00 [facility] Penicill DA Active U AN HC A ins 5-06 Clear 00:00: Rodriguez 00 [facility] cefepime DA Active U [facility] 5-06 Clear 00:00: Rodriguez 00 [facility] levoflox DA Active U [facility] acin 5-06 Clear 00:00: Rodriguez 00 [facility] Sulfamet Propensi Active Other (See Unable [...] Memori a sup>2</s sup>2</s l up> up> [place] cefepime cefepime Active Memori a l Denis Levaquin Levaquin Active Memori a l [place] penicill penicill Active Memori a ins<sup> ins<sup> l 2</sup> 2</sup> Denis codeine codeine Active Memoria l Denis Bactrim Bactrim Active Memoria l Denis penicill penicill Active Memori a ins ins l Denis Family History Family Member Diagnosis Comments Start Date Stop Date Source Natural father Alcohol abuse [facility] Maternal grandfather [facility] Maternal grandmother No Known Problems [facility] Natural mother No Known Problems Met [facility] Paternal grandfather No Known Problems [facility] Paternal grandmother Heart disease [facility] Natural sister Cancer [facility] Social History Social Habit Start Date Stop Date Quantity Comments Source History [facility] Drinks History [facility] Alcohol intake 2022-08-26 2022-08-26 Ex-drinker [facility] 00[facility]00:00 00:00:00 (finding) Hospital History SDOH 2021-07-13 2021-07-13 5 [facility] 00:00:00 00:00:00 Hospital History SDOH IPV [...] [facility] Worry 00:00:00 00:00:00 Hospital History SDMA Food 2021-07-13 2021-07-[address] Scarcity 00:00:00 00:00:00 Hospital History SDMA 2021-07-13 2021-07-13 2 [facility] Med 00:00:00 00:00:00 Hospital History SDMA 2021-07-13 2021-07-13 2 [facility] Non-Med 00:00:00 00:00:00 Hospita l History SDMA 2021-07-13 2021-07-13 2 [facility] Unable to 00:00:00 00:00:00 Hospita l Pay History [facility] 2021-07-13 2021-07-13 1 [facility] Places 00:00:00 00:00:00 Hospital Lived History [facility] 2021-07-13 2021-07-13 2 [facility] Homeless 00:00:00 00:00:00 Hospital Last Year Alcohol Comment 2021-02-03 2021-02-03 rarely [facility] 00:00:00 00:00:00 Hospital History [facility] 2020-12-17 2020-12-17 1 [facility] Frequency 00:00:00 00:00:00 Hospita l Social History 2020-09-15 2020-09-15 [facility] 15:59:50 15:59:50 Tobacco use and 2019-06-26 2019-06-26 Smokeless tobacco Me [facility]odist exposure 00:00:00 00:00:00 non-user Hospital Sex Assigned At [address] [facility] 00:00:00 00:00:00 Medical Center Smoking Status Start Date Stop Date Source Social [facility] Medications Ordered Filled Start Stop Current Ordering Indication Dosage Frequency Signature Comments Components Source Medication Medication Date Date Medication? Clinician (SIG) Name Name brimonidine 2021-10 Yes 1[drp] Q.5D [address] (ALPHAGAN) 2-07 (two) [facility] 0.15 % 13:19: times Medical ophthalmic 20 daily. Center solution apixaban 2021-10 Yes 2.5mg Q.5D Take 2.[address] [facility] (ELIQUIS) 2-07 mg by [facility] 2.5 mg Tab 13:19: mouth 2 Medi alexandre tablet 20 (two) Center times daily. bumetanide 2021-10 Yes 2mg QD Take [address] (BUMEX) 2 2-07 by mouth [facility] MG tablet 13:19: daily. Medica l 20 Center pantoprazol 2021-10 Yes 40mg QD Take [address] e 2-07 by mouth [facility] (PROTONIX) 13:19: daily. Medic al 40 MG 20 Center tablet midodrine 2021-10- Yes 5mg Take 1 [facility] t (PROAMATINE 11-28 tablet (5 Pari kes ) 5 MG 00:00: 23:59 mg total) Medic al tablet 00 :00 by mouth 3 Center (three) times daily before meals for 60 days. digoxin 2021-10- No 125ug Take [address] (LANOXIN) 11-27 mcg by [facility]ukes 0.125 MG 19:03: 00:00 mouth 3 Medic al tablet 43 :00 times per Center week . metoprolol 2021-10 No 25mg Q.5D Take [address] tartrate 11-27 by mouth 2 Luke s (LOPRESSOR) 19:03: 00:00 (two) Medi alexandre 25 MG 43 :00 times Center tablet daily. midodrine 2021-10- No 10mg Q.[id number] Take [address] (PROAMATINE 11-27 [id number] by mouth 3 [facility] ) 10 MG 19:03: 00:00 3D (three) Medica l tablet 43 :00 times Center daily. mINOCYCLine 2021-10 Yes 100mg Take [address] [facility] (MINOCIN,DY 11-27 capsule [facility] NACIN) 100 00:00: (100 mg Medi alexandre MG capsule 00 total) by Cent er mouth every 12 (twelve) hours. promethazin 2021-10- No 12.5mg Take [address] e 11-27 tablet [facility] (PHENERGAN) 00:00: 23:59 (12.5 mg M edical 12.5 MG 00 :00 total) by Center tablet mouth every 6 (six) hours as needed for Nausea for up to 15 days. apixaban 2021-10- No 2.5mg Q.5D Take 1 [...] QD Take 10 mg Methodi n (LIPITOR) 10-[address] 10 mg 18:12: every Hospita tablet 11 evening. l sucroferric 2021-10 Yes 500mg Q.[id number] Chew 500 Methodi oxyhydroxid 10-[id number] e 18:12: 3D (three) [...] (two) times a day. acetaminoph 2021- [place] [id number] 1{tbl} Q.5D Take 1 Methodi en-codeine 9-09 09-[address] (TYLENOL 00:00: 04:59 mouth 2 Hospi ta WITH 00 :00 (two) l CODEINE #3) times a 300-30 mg day for 10 per tablet days .chronic pain. acetaminoph 2021- [place] [id number] 1{tbl} Q.5D Take 1 Methodi en-codeine 06-28 [...] :00 (two) l times a day. sevelamer 2021-2021- No 1600mg Q.[id number] Take 1,600 Methodi (RENVELA) 06-[id number] 800 mg 18:50: 00:00 3D mouth 3 Hospita tablet 58 :00 (three) l times a day with meals. oxyCODONE 2021- No [id number] 5mg Q4H Take 5 mg M ethodi (ROXICODONE 06-[address] ) 5 MG 18:50: 00:00 every 4 Hospita immediate 30 :00 (four) l release hours as tablet needed for moderate pain .acute pain. tiZANidine 2021-0 Yes 4mg Q.5D Take 1 Metho di (ZANAFLEX) 06-22 tablet (4 st 4 MG tablet 00:00: mg total) H ospita 00 by mouth 2 l (two) times a day as needed for muscle spasms. promethazin 0 Yes 25mg Q6H Take 1 Meth aiden e -01 tablet (25 st (PHENERGAN) 00:00: mg total) H ospita 25 MG 00 by mouth l tablet every 6 (six) hours as needed for vomiting or nausea. promethazin Yes 50mg Q.[id number] Take 1 Methodi e -28 [id number] tablet (50 st (PHENERGAN) 00:00: 3D mg [...] 60mg QD Take 60 mg Methodi (CYMBALTA) 04-29- by mouth st 60 MG 18:01: 00:00 [...] 54 :00 daily. l Zithromax Yes See [employer] 250 6-29 Instructio l mg oral 21:14: ns, Take 2 Herm connie tablet 00 tablets by mouth the first day then 1 tablet by mouth days 2-5. (Pt is on hemodialys is)., X 5 day, # 6 tab, 0 Refill(s), Pharmacy: [facility] [place], 170.18, cm, 04/19/22 14:52:00 CDT, Height, 106.818, kg, 04/19/22 14... Zithromax Yes See [employer] 250 6-29 Instructio l mg oral 21:14: ns, Take 2 Herm connie tablet 00 tablets by mouth the first day then 1 tablet by mouth days 2-5. (Pt is on hemodialys is)., X 5 day, # 6 tab, 0 Refill(s), Pharmacy: [facility], 170.18, cm, 04/19/22 14:52:00 CDT, Height, 106.818, kg, 04/19/22 14... Zithromax 2-[address] [facility] [employer] 250 6-29 Instructio l mg oral 21:14: ns, Take 2 Herm connie tablet 00 tablets by mouth the first day then 1 tablet by mouth days 2-5. (Pt is on hemodialys is)., X 5 day, # 6 tab, 0 Refill(s), Pharmacy: [facility], 170.18, cm, 04/19/22 14:52:00 CDT, Height, 106.818, kg, 04/19/22 14... Zithromax 2021-[address] [facility] [employer] 250 6-29 Instructio l mg oral 21:14: ns, Take 2 Herm connie tablet 00 tablets by mouth the first day then 1 tablet by mouth days 2-5. (Pt is on hemodialys is)., X 5 day, # 6 tab, 0 Refill(s), Pharmacy: [facility], 170.18, cm, 04/19/22 14:52:00 CDT, Height, 106.818, kg, 04/19/22 14... Zithromax 2021-0 Yes See [facility] 250 6-29 Instructio l mg oral 21:14: ns, Take 2 Herm connie tablet 00 tablets by mouth the first day then 1 tablet by mouth days 2-5. (Pt is on hemodialys is)., X 5 day, # 6 tab, 0 Refill(s), Pharmacy: [facility], 170.18, cm, 04/19/22 14:52:00 CDT, Height, 106.818, kg, 04/19/22 14... Velphoro 2021-0 Yes 500 mg, Memori a 6 CHEW, l 20:13: Daily, Denis 00 take with food, 0 Refill(s) Velphoro 2022-0 Yes 500 mg, Memori a 6-29 CHEW, l 20:13: Daily, [place] 00 take with food, 0 Refill(s) Velphoro 2022-0 Yes 500 mg, Memori a 6-29 CHEW, l 20:13: Daily, Denis 00 take with food, 0 Refill(s) Velphoro 2022-0 Yes 500 mg, Memori a 6-29 CHEW, l 20:13: Daily, [place] 00 take with food, 0 Refill(s) Velphoro 2022-0 Yes 500 mg, Memori a 6-29 CHEW, l 20:13: Daily, [place] 00 take with food, 0 Refill(s) sevelamer 2-0 Yes 2,400 mg = Me moria carbonate 6-29 3 tab, PO, l 800 mg oral 20:12: TID-Meals, [place] tablet 00 # 270 tab, 0 Refill(s) sevelamer 2-0 Yes 2,400 mg = Me moria carbonate 6-29 3 tab, PO, l 800 mg oral 20:12: TID-Meals, [place] tablet 00 # 270 tab, 0 Refill(s) sevelamer 2-0 Yes 2,400 mg = Me moria carbonate 6-29 3 tab, PO, l 800 mg oral 20:12: TID-Meals, [place] tablet 00 # 270 tab, 0 Refill(s) [...] tab, PO, l oral 20:11: Daily, 0 [place] [facility] 00 Refill(s) coated tablet pantoprazol 2-0 [...] tab, PO, l oral 20:11: Daily, 0 [place] [facility] 00 Refill(s) coated tablet pantoprazol 2021-0 Yes 40 mg = 1 M emoria e 40 mg 6-29 tab, PO, l oral 20:11: Daily, 0 [place] [facility] 00 Refill(s) coated tablet oxyCODONE 5 2021-0 Yes 5 mg = [...] l oral tablet 20:08: Q12H, 0 [facility] 00 Refill(s) Nitazoxanid 2021-0 Yes 500 mg = 1 Memoria e 500 mg 6-29 tab, PO, l oral tablet 20:08: Q12H, 0 Her [facility] 00 Refill(s) Nitazoxanid 2021-0 Yes 500 mg = 1 Memoria e 500 mg 6-29 tab, PO, l oral tablet 20:08: Q12H, 0 [place] 00 Refill(s) Nitazoxanid 2-0 Yes 500 mg = 1 Memoria e 500 mg 6-29 tab, PO, l oral tablet 20:08: Q12H, 0 Her [facility] 00 Refill(s) Nitazoxanid 2-0 Yes 500 mg [...] PO, l mg oral 20:07: BID, 0 [place] tablet 00 Refill(s) metoprolol 2021-0 Yes 25 mg = 1 Me moria tartrate 25 6-29 tab, PO, l mg oral 20:07: BID, 0 [place] tablet 00 Refill(s) metoprolol 2021-0 Yes 25 mg = 1 Me moria tartrate 25 6-29 tab, PO, l mg oral 20:07: BID, 0 [place] tablet 00 Refill(s) metoprolol 2021-0 Yes 25 mg = 1 Me moria tartrate 25 6-29 tab, PO, l mg oral 20:07: BID, 0 [place] tablet 00 Refill(s) methocarbam 2021-0 Yes 250 mg = Me moria ol 500 mg 6-29 0.5 tab, l oral tablet 20:05: PO, TID, 0 [place] 00 Refill(s) methocarbam 2021-0 Yes 250 mg = Me moria ol 500 mg 6-29 0.5 tab, l oral tablet 20:05: PO, TID, 0 [place] 00 Refill(s) methocarbam 2021-0 Yes 250 mg = Me moria ol 500 mg 6-29 0.5 tab, l oral tablet 20:05: PO, TID, 0 [place] 00 Refill(s) methocarbam 2021-0 Yes 250 mg = Me moria ol 500 mg 6-29 0.5 tab, l oral tablet 20:05: PO, TID, 0 [place] 00 Refill(s) methocarbam 2021-0 Yes 250 mg = Me moria ol 500 mg 6-29 0.5 tab, l oral tablet 20:05: PO, TID, 0 [place] 00 Refill(s) Alphagan P 2021-0 Yes 1 drp, Memor ia 0.1% 04-19 OPTH, Q12H l ophthalmic 20:04: [place] solution 00 folic acid 2021-0 Yes 1 mg, PO, Me moria - Daily, 0 l 20:04: Refill(s) [place] 00 Alphagan P 2022-0 Yes 1 drp, Memor ia 0.1% - OPTH, Q12H l ophthalmic 20:04: [place] solution 00 folic acid 0 Yes 1 mg, PO, Me moria 6- Daily, 0 l 20:04: Refill(s) [place] Alphagan P 0 Yes 1 drp, Memor ia 0.1% - OPTH, Q12H l ophthalmic 20:04: [place] solution 00 folic acid 0 Yes 1 mg, PO, Me moria 6- Daily, 0 l 20:04: Refill(s) [place] Alphagan P Yes 1 drp, Memor ia 0.1% - OPTH, Q12H l ophthalmic 20:04: [place] solution 00 folic acid 0 Yes 1 mg, PO, Me moria - Daily, 0 l 20:04: Refill(s) [place] Alphagan P Yes 1 drp, Memor ia 0.1% 04-19 OPTH, Q12H l ophthalmic 20:04: [place] solution 00 folic acid 0 Yes 1 mg, PO, Me moria - Daily, 0 l 20:04: Refill(s) [place] 00 Oxygen 2021-0 Yes 1 btl, Memoria 6- MISC, l 20:03: Daily, 2 [place] 00 liters, 0 Refill(s) Oxygen 2021-0 Yes 1 btl, Memoria - MISC, l 20:03: Daily, 2 [place] 00 liters, 0 Refill(s) Oxygen 2021-0 Yes 1 btl, Memoria 6- MISC, l 20:03: Daily, 2 [place] 00 liters, 0 Refill(s) Oxygen 2021-0 Yes 1 btl, Memoria - MISC, l 20:03: Daily, 2 [place] 00 liters, 0 Refill(s) Oxygen 2021-0 Yes 1 btl, Memoria 6- MISC, l 20:03: Daily, 2 [place] 00 liters, 0 Refill(s) Eliquis 2.5 0 Yes 2.5 mg, Mem oria mg oral - PO, Q12H, l tablet 20:02: tab, 0 [place] 00 Refill(s) Eliquis 2.5 2021-0 Yes 2.5 mg, Mem oria mg oral 6-29 PO, Q12H, l tablet 20:02: tab, 0 [place] 00 Refill(s) Eliquis 2.5 2021-0 Yes 2.5 mg, Mem oria mg oral 6-29 PO, Q12H, l tablet 20:02: tab, 0 [place] 00 Refill(s) Eliquis 2.5 2021-0 Yes 2.5 mg, Mem oria mg oral 6-29 PO, Q12H, l tablet 20:02: tab, 0 [place] 00 Refill(s) Eliquis 2.5 2021-0 Yes 2.5 mg, Mem oria mg oral 6-29 PO, Q12H, l tablet 20:02: tab, 0 [place] 00 Refill(s) doxycycline 2021- No 200mg Q.5D Take 200 [facility] (VIBRAMYCIN 04-16-25 mg by ) 100 MG 13:07: 00:00 [...] 1{capsu QD Take 1 [facility] FORMULARY 04-16 06-25 le} capsule by 13:07: 00:00 mouth Hospita 01 :00 nightly. l Patient takes young living probiotic with 17 billion active cultures folic acid 2021- No 1mg QD Take 1 Meth aiden (FOLVITE) 1 04-15- tablet (1 st MG tablet 00:00: 04:59 mg total) [facility] spita 00 :00 by mouth l daily for 30 days. methocarbam 2021- No 250mg Q.16179258 Take 0.5 [facility] oL 04-[id number] (ROBAXIN) 00:00: 04:59 3D (250 [...] day for 7 days. oxyCOD[place] 2021- [place] 66612 5mg Q4H Take 1 Meth aiden (ROXICODONE [...] SPASM, # 15 tab, 0 Refill(s), Pharmacy: [facility] #[id number], 165.1, cm, 10/17/21 15:23:00 [place] [employer] [employer], Height, 107.301, kg, 10/17/21 15:23:00 [employer], Weight tizanidine 2021-0 Yes 4 mg = 1 Mem oria 4 mg oral 5-16 tab, PO, l tablet 18:09: Bedtime, [place] 00 PRN NEEDED FOR MUSCLE SPASM, # 15 tab, 0 Refill(s), Pharmacy: [facility] #[id number], 165.1, cm, 10/17/21 15:23:00 [place] [employer] [employer], Height, 107.301, kg, 10/17/21 15:23:00 [place] [employer], Weight tizanidine 2021-0 Yes 4 mg = 1 Mem oria 4 mg oral 5-16 tab, PO, l tablet 18:09: Bedtime, [place] 00 PRN NEEDED FOR MUSCLE SPASM, # 15 tab, 0 Refill(s), Pharmacy: [facility] #[id number], 165.1, cm, 10/17/21 15:23:00 [place] [employer] [employer], Height, 107.301, kg, 10/17/21 15:23:00 [place] [employer] [employer], Weight tizanidine Yes 4 mg = 1 Mem oria 4 mg oral 5-16 tab, PO, l tablet 18:09: Bedtime, [place] 00 PRN NEEDED FOR MUSCLE SPASM, # 15 tab, 0 Refill(s), Pharmacy: [facility] #[id number], 165.1, cm, 10/17/21 15:23:00 [place] [employer], Height, 107.301, kg, 10/17/21 15:23:00 [place] [employer], Weight tizanidine Yes 4 mg = 1 Mem oria 4 mg oral 5-16 tab, PO, l tablet 18:09: Bedtime, [place] 00 PRN NEEDED FOR MUSCLE SPASM, # 15 tab, 0 Refill(s), [id number], 165.1, cm, 10/17/21 15:23:00 [place], Height, 107.301, kg, 10/17/21 15:23:00 [place] [employer] [employer], Weight nitrofurant 2021- No 100mg Q.5D Take 1 Me thodi oin, 12-[address] macrocrysta 00:00: 04:59 (100 mg Ho spita l-monohydra 00 :00 total) by l te, mouth 2 (MACROBID) (two) 100 MG times a capsule day for 3 days. lidocaine 2021- No 1{patch Q24H Place 1 M ethodi (LIDODERM) 12-28 } patch on st 5 % 00:00: 04:59 the skin Hospita 00 :00 in the l morning for 30 days. Remove & Discard patch within 12 hours or as directed by . traMADoL 2021- [place] 10314 50mg Q.28904160 Take 1 [facility] (ULTRAM) 50 12-28 [id number] tablet (50 st mg tablet 00:00: 04:59 3D mg total) Ho spita 00 :00 by mouth l as needed in the morning and 1 tablet (50 mg total) as needed at noon and 1 tablet (50 mg total) as needed in the evening for moderate pain. Do all this for up to 10 days.acute pain. metoprolol 2-0 Yes 25mg Q.5D Take 25 mg M ethodi tartrate 2-[address] (LOPRESSOR) 00:00: (two) Hospi ta 25 mg 00 times a l tablet day. Ondansetron 2022-0 Yes 4 mg = 1 Me moria 4 MG Oral 1-07 tab, PO, l Tablet 22:01: BID, X 5 [place] [Zofran] day, # 10 tab, 0 Refill(s), [id number], 165.1, cm, 10/17/21 15:23:00 [place], Height, 107.301, kg, 10/17/21 15:23:00 [employer] [employer], Weight Ondansetron 2022-0 Yes 4 mg = 1 Me moria 4 MG Oral 1-07 tab, PO, l Tablet 22:01: BID, X 5 [place] [Zofran] day, # 10 tab, 0 Refill(s), Pharmacy: [facility] #[id number], 165.1, cm, 10/17/21 15:23:00 [place] [employer] [employer], Height, 107.301, kg, 10/17/21 15:23:00 [place] [employer], Weight Ondansetron 2022-0 Yes 4 mg = 1 Me moria 4 MG Oral 1-07 tab, PO, l Tablet 22:01: BID, X 5 [place] [Zofran] day, # 10 tab, 0 Refill(s), Pharmacy: [facility] #[id number], 165.1, cm, 10/17/21 15:23:00 [place] [employer] [employer], Height, 107.301, kg, 10/17/21 15:23:00 [employer] [employer], Weight Ondansetron 2022-0 Yes 4 mg = 1 Me moria 4 MG Oral 1-07 tab, PO, l Tablet 22:01: BID, X 5 [place] [Zofran] day, # 10 tab, 0 Refill(s), Pharmacy: [facility] #[id number], 165.1, cm, 10/17/21 15:23:00 [place] [employer], Height, 107.301, kg, 10/17/21 15:23:00 [employer], Weight Ondansetron Yes 4 mg = 1 Me moria 4 MG Oral 1-07 tab, PO, l Tablet 22:01: BID, X 5 [place] [Zofran] 00 day, # 10 tab, 0 Refill(s), Pharmacy: [facility] #[id number], 165.1, cm, 10/17/21 15:23:00 [place] [employer] [employer], Height, 107.301, kg, 10/17/21 15:23:00 [place] [employer], Weight atorvastati 2020-10 Yes 10 mg = 1 M emoria n 10 mg 2-27 tab, PO, l oral tablet 21:45: Bedtime, # [place] 00 90 tab, 0 Refill(s), Pharmacy: [facility] #[id number], 165.1, cm, 10/17/21 15:23:00 [place] [employer] [employer], Height, 107.301, kg, 10/17/21 15:23:00 [employer] [employer], Weight atorvastati 2020-10 Yes 10 mg = 1 M emoria n 10 mg 2-27 tab, PO, l oral tablet 21:45: Bedtime, # [place] 00 90 tab, 0 Refill(s), Pharmacy: [facility] #[id number], 165.1, cm, 10/17/21 15:23:00 [place] [employer], Height, 107.301, kg, 10/17/21 15:23:00 [employer] [employer], Weight atorvastati 2020-10 Yes 10 mg = 1 M emoria n 10 mg 2-27 tab, PO, l oral tablet 21:45: Bedtime, # [place] 00 90 tab, 0 Refill(s), Pharmacy: [facility] #[id number], 165.1, cm, 10/17/21 15:23:00 [place] [employer], Height, 107.301, kg, 10/17/21 15:23:00 [place] [employer], Weight atorvastati 2020-10 Yes 10 mg = 1 M emoria n 10 mg 2-27 tab, PO, l oral tablet 21:45: Bedtime, # [place] 00 90 tab, 0 Refill(s), [facility][id number], 165.1, cm, 10/17/21 15:23:00 [place], Height, 107.301, kg, 10/17/21 15:23:00 [place] [employer] [employer], Weight atorvastati 2020-10 Yes 10 mg = 1 M emoria n 10 mg 2-27 tab, PO, l oral tablet 21:45: Bedtime, # [place] 00 90 tab, 0 Refill(s), [facility][id number], 165.1, cm, 10/17/21 15:23:00 [place] [employer], Height, 107.301, kg, 10/17/21 15:23:00 [place] [employer] [employer], Weight tizanidine 2020-10 Yes 4 mg = 1 Mem oria 4 mg oral 2-27 tab, PO, l tablet 21:40: Bedtime, [place] 00 PRN for muscle spasm, # 30 tab, 0 Refill(s), [id number], 165.1, cm, 10/17/21 15:23:00 [place], Height, 107.301, kg, 10/17/21 15:23:00 [place] [employer] [employer], Weight Acetaminoph 2020-10 Yes 1 tab, PO, Memoria en 325 MG / 2-27 Q12H, PRN l tramadol 21:40: for pain, Herm connie hydrochlori 00 X 15 day, de 37.5 MG # 30 tab, Oral Tablet 0 [Ultracet] Refill(s), Pharmacy: [facility] #[id number], 165.1, cm, 10/17/21 15:23:00 [place] [employer] [employer]FER, Height, 107.301, kg, 10/17/21 15:23:00 [place] [employer] [employer], Weight tizanidine 2020-10 Yes 4 mg = 1 Mem oria 4 mg oral 2-27 tab, PO, l tablet 21:40: Bedtime, [place] 00 PRN for muscle spasm, # 30 tab, 0 Refill(s), Pharmacy: [facility] #[id number], 165.1, cm, 10/17/21 15:23:00 [place] [employer] [employer], Height, 107.301, kg, 10/17/21 15:23:00 [place] [employer] [employer], Weight Acetaminoph 2020-10 Yes 1 tab, PO, Memoria en 325 MG / 2-27 Q12H, PRN l tramadol 21:40: for pain, Herm connie hydrochlori 00 X 15 day, de 37.5 MG # 30 tab, Oral Tablet 0 [Ultracet] Refill(s), [facility][id number], 165.1, cm, 10/17/21 15:23:00 [place], Height, 107.301, kg, 10/17/21 15:23:00 [place] [employer] [employer], Weight tizanidine 2020-10 Yes 4 mg = 1 Mem oria 4 mg oral 2-27 tab, PO, l tablet 21:40: Bedtime, [place] 00 PRN for muscle spasm, # 30 tab, 0 Refill(s), [facility][id number], 165.1, cm, 10/17/21 15:23:00 [place] [employer], Height, 107.301, kg, 10/17/21 15:23:00 [place] [employer] [employer], Weight Acetaminoph 2020-10 Yes 1 tab, PO, Memoria en 325 MG / 2-27 Q12H, PRN l tramadol 21:40: for pain, Herm connie hydrochlori 00 X 15 day, de 37.5 MG # 30 tab, Oral Tablet 0 [Ultracet] Refill(s), [id number], 165.1, cm, 10/17/21 15:23:00 [place], Height, 107.301, kg, 10/17/21 15:23:00 [place] [employer] [employer], Weight tizanidine 2020-10 Yes 4 mg = 1 Mem oria 4 mg oral 2-27 tab, PO, l tablet 21:40: Bedtime, [place] 00 PRN for muscle spasm, # 30 tab, 0 Refill(s), [facility][id number], 165.1, cm, 10/17/21 15:23:00 [place], Height, 107.301, kg, 10/17/21 15:23:00 [place] [employer] [employer], Weight Acetaminoph 2020-10 Yes 1 tab, PO, Memoria en 325 MG / 2-27 Q12H, PRN l tramadol 21:40: for pain, Herm connie hydrochlori 00 X 15 day, de 37.5 MG # 30 tab, Oral Tablet 0 [Ultracet] Refill(s), [id number], 165.1, cm, 10/17/21 15:23:00 [place], Height, 107.301, kg, 10/17/21 15:23:00 [place] [employer], Weight tizanidine 2020-10 Yes 4 mg = 1 Mem oria 4 mg oral 2-27 tab, PO, l tablet 21:40: Bedtime, [place] 00 PRN for muscle spasm, # 30 tab, 0 Refill(s), Pharmacy: [facility] #[id number], 165.1, cm, 10/17/21 15:23:00 [place], Height, 107.301, kg, 10/17/21 15:23:00 [place] [employer] [employer], Weight Acetaminoph 2020-10 Yes 1 tab, PO, Memoria en 325 MG / 2-27 Q12H, PRN l tramadol 21:40: for pain, Herm connie hydrochlori 00 X 15 day, de 37.5 MG # 30 tab, Oral Tablet 0 [Ultracet] Refill(s), Pharmacy: [facility] #[id number], 165.1, cm, 10/17/21 15:23:00 [place] [employer] [employer], Height, 107.301, kg, 10/17/21 15:23:00 [place], Weight sevelamer 2020-10 Yes 1,600 mg = [...] Ointment 00 22 gm, 0 Refill(s), Pharmacy: [facility] #[id number], 165.1, cm, 09/09/21 14:08:00 [place] [employer] [employer], Height, 136.42, kg, 09/09/21 14:08:00 [place] [employer] [employer], Weight Mupirocin 2020-10 Yes 1 appl, Memor ia 0.02 MG/MG 1-22 TOP, TID, l Topical 23:21: X 5 day, # Herm connie Ointment 00 22 gm, 0 Refill(s), Pharmacy: [facility] #[id number], 165.1, cm, 09/09/21 14:08:00 [place] [employer] [employer], Height, 136.42, kg, 09/09/21 14:08:00 [place] [employer] [employer], Weight Mupirocin 2020-10 Yes 1 appl, Memor ia 0.02 MG/MG 1-22 TOP, TID, l Topical 23:21: X 5 day, # Herm connie Ointment 00 22 gm, 0 Refill(s), Pharmacy: [facility] #[id number], 165.1, cm, 09/09/21 14:08:00 [place] [employer] [employer], Height, 136.42, kg, 09/09/21 14:08:00 [place] [employer] [employer], Weight Mupirocin 2020-10 Yes 1 appl, Memor ia 0.02 MG/MG 1-22 TOP, TID, l Topical 23:21: X 5 day, # Herm connie Ointment 00 22 gm, 0 Refill(s), [facility][id number], 165.1, cm, 09/09/21 14:08:00 [place] [employer] [employer], Height, 136.42, kg, 09/09/21 14:08:00 [place] [employer] [employer], Weight Mupirocin 2020-10 Yes 1 appl, Memor ia 0.02 MG/MG 1-22 TOP, TID, l Topical 23:21: X 5 day, # Herm connie Ointment 00 22 gm, 0 Refill(s), Pharmacy: [facility] #[id number], 165.1, cm, 09/09/21 14:08:00 [place] [employer] [employer], Height, 136.42, kg, 09/09/21 14:08:00 [place] [employer], Weight bumetanide 2020-10 Yes 2 mg = [...] tab, PO, l tablet 21:11: Daily, # [place] 00 30 tab, 0 Refill(s) bumetanide 2020-10 [...] connie 00 Refill(s) midodrine 2020-10 Yes 10mg Q.33917089 Take 10 mg [facility] (PROAMATINE 1-13 [id number] mouth [address] ) 10 MG 00:00: 3D (three) Hospita tablet 00 times a l day. BUMETanide 2020-10 Yes 2mg QD Take 2 mg Me thodi (BUMEX) 2 1-[address] MG tablet 00:00: every Hospita 00 morning. l digOXIN 2020-10 Yes 125ug Q.[id number] Take 125 [facility] (LANOXIN) 1-[id number] 125 mcg 00:00: 3W mouth 3 Hospita (0.125 mg) 00 (three) l tablet times a week. On dialysis days, , Sunday carvediloL 2020-10- No [facility] (COREG) 1-12 -28 st 3.125 MG 00:00: 00:00 Hospita tablet 00 :00 l ipratropium 2020-10- No [id number] .5mg Q.25D Take 2.5 [facility] (ATROVENT) 0-05 02-28 mL (0.[address] 0.02 % 00:00: 00:00 [facility]00 nebulizati l solution on 4 (four) times a day. QUEtiapine 2021-0 Yes 1 tablet, Me moria 50 mg oral 3-30 once a l tablet 13:55: day, 0 [place] 00 Refill(s) torsemide 2021-0 Yes 1 tablet, Mem oria 20 mg oral 3-30 twice a l tablet 13:55: day, 0 [place] 00 Refill(s) QUEtiapine 2021-0 Yes 1 tablet, Me moria 50 mg oral 3-30 once a l tablet 13:55: day, 0 [place] 00 Refill(s) torsemide 2021-0 Yes 1 tablet, Mem oria 20 mg oral 3-30 twice a l tablet 13:55: day, 0 [place] 00 Refill(s) QUEtiapine 2021-0 Yes 1 tablet, Me moria 50 mg oral 3-30 once a l tablet 13:55: day, 0 [place] 00 Refill(s) torsemide 2021-0 Yes 1 tablet, Mem oria 20 mg oral 3-30 twice a l tablet 13:55: day, 0 [place] 00 Refill(s) QUEtiapine 2021-0 Yes 1 tablet, Me moria 50 mg oral 3-30 once a l tablet 13:55: day, 0 [place] 00 Refill(s) torsemide 2021-0 Yes 1 tablet, Mem oria 20 mg oral 3-30 twice a l tablet 13:55: day, 0 [place] 00 Refill(s) QUEtiapine 2021-0 Yes 1 tablet, Me moria 50 mg oral 3-30 once a l tablet 13:55: day, 0 [place] 00 Refill(s) torsemide 2021-0 Yes 1 tablet, Mem oria 20 mg oral 3-30 twice a l tablet 13:55: day, 0 [place] 00 Refill(s) potassium 2021-0 Yes 1 tablet, Mem oria chloride 20 3-30 once a l mEq oral 13:54: day, 0 [place] tablet, 00 Refill(s) extended release (KCL) potassium 2021-0 Yes 1 tablet, Mem oria chloride 20 3-30 once a l mEq oral 13:54: day, 0 [place] tablet, 00 Refill(s) extended release (KCL) potassium Yes 1 tablet, Mem oria chloride [...] once a l delayed 13:53: day, 0 [place] release 00 Refill(s) capsule apixaban 5 Yes [...] twice a l tablet 13:53: day, 0 [place] 00 Refill(s) allopurinol Yes 1/2 Memori a 300 mg oral 3-30 tablet, l tablet 13:53: once a [place] 00 day, 0 Refill(s) carvedilol Yes 1 [...] twice a l Tablet 13:53: day, 0 [place] [Eliquis] 00 Refill(s) gabapentin Yes 1 capsule, M emoria 300 MG Oral 3-30 twice a l Capsule 13:53: day, 0 [place] 00 Refill(s) metoprolol Yes 1 tablet, Me moria tartrate 50 3-30 Twice a l mg oral 13:53: day, 0 [place] tablet 00 Refill(s) midodrine 5 Yes 1 tablet, M emoria mg oral 3-30 twice a l tablet 13:53: day, 0 [place] 00 Refill(s) allopurinol Yes 1/2 Memori a 300 mg oral 3-30 tablet, l tablet 13:53: once a [place] 00 day, 0 Refill(s) carvedilol Yes 1 [...] once a l delayed 13:53: day, 0 [place] release 00 Refill(s) capsule apixaban 5 Yes 1 tablet, Me moria MG Oral 3-30 twice a l Tablet 13:53: day, 0 [place] [Eliquis] 00 Refill(s) gabapentin 2021-0 Yes 1 capsule, M emoria 300 MG Oral 3-30 twice a l Capsule 13:53: day, 0 [place] 00 Refill(s) metoprolol 2020-0 Yes 1 tablet, Me moria tartrate 50 3-30 Twice a l mg oral 13:53: day, 0 [place] tablet 00 Refill(s) midodrine 5 Yes 1 tablet, M emoria mg oral 3-30 twice a l tablet 13:53: day, 0 [place] 00 Refill(s) allopurinol Yes 1/2 Memori a 300 mg oral 3-30 tablet, l tablet 13:53: once a [place] 00 day, 0 Refill(s) carvedilol 0 Yes 1 tablet, Me moria 3.125 mg 3-30 twice a l oral tablet 13:53: day, 0 Herm connie 00 Refill(s) Digoxin 0 Yes 1 tablet, Memor ia 0.125 MG 3-30 once a l Oral Tablet 13:53: day, 0 Herm connie 00 Refill(s) DULoxetine 0 Yes 1 capsule, M emoria 60 mg oral 3-30 once a l delayed 13:53: day, 0 [place] release 00 Refill(s) capsule apixaban 5 0 [...] a l mg oral 13:53: day, 0 [place] tablet 00 Refill(s) midodrine 5 Yes 1 tablet, M emoria mg oral 3-30 twice a l tablet 13:53: day, 0 [place] 00 Refill(s) allopurinol 2020-0 Yes 1/2 Memori a 300 mg oral 3-30 tablet, l tablet 13:53: once a [place] 00 day, 0 Refill(s) carvedilol 0 Yes 1 tablet, Me moria 3.125 mg 3-30 twice a l oral tablet 13:53: day, 0 Herm connie 00 Refill(s) Digoxin Yes 1 tablet, Memor ia 0.125 MG 3-30 once a l Oral Tablet 13:53: day, 0 Herm connie 00 Refill(s) DULoxetine Yes 1 capsule, M emoria 60 mg oral 3-30 once a l delayed 13:53: day, 0 [place] release 00 Refill(s) capsule apixaban 5 Yes 1 tablet, Me moria MG Oral 3-30 twice a l Tablet 13:53: day, 0 [place] [Eliquis] 00 Refill(s) gabapentin Yes 1 capsule, M emoria 300 MG Oral 3-30 twice a l Capsule 13:53: day, 0 [place] 00 Refill(s) metoprolol Yes 1 tablet, Me moria tartrate 50 3-30 Twice a l mg oral 13:53: day, 0 [place] tablet 00 Refill(s) midodrine 5 Yes 1 [...] tab, H ermann 00 0 Refill(s) Digoxin 2019- Yes 0.125 mg, Memor ia 0.125 MG [...] DAILY, # 66 gm, 1 Refill(s), [id number], 170.18, cm, 12/16/19 14:42:00 [place]FER, Height, 164.318, kg, 12/16/19 14:42:00 [employer], Weight Mupirocin 2020-1 Yes See Memoria 0.02 MG/MG 0-13 Instructio l Topical 15:44: ns, APPLY Karen nn Ointment 00 EXTERNALLY TO THE AFFECTED AREA TWICE DAILY, # 66 gm, 1 Refill(s), [facility][id number], 170.18, cm, 12/16/19 14:42:00 [place] [employer] [employer]OOFER, Height, 164.318, kg, 12/16/19 14:42:00 [employer]FER, Weight Mupirocin 2020- Yes See Memoria 0.02 MG/MG 0-13 Instructio l Topical 15:44: ns, APPLY Karen nn Ointment 00 EXTERNALLY TO THE AFFECTED AREA TWICE DAILY, # 66 gm, 1 Refill(s), [facility] [place] [id number], 170.18, cm, 12/16/19 14:42:00 [place], Height, 164.318, kg, 12/16/19 14:42:00 [place], Weight Mupirocin 2020-1 Yes See Memoria 0.02 MG/MG 0-13 Instructio l Topical 15:44: ns, APPLY Karen nn Ointment 00 EXTERNALLY TO THE AFFECTED AREA TWICE DAILY, # 66 gm, 1 Refill(s), [id number], 170.18, cm, 12/16/19 14:42:00 [place], Height, 164.318, kg, 12/16/19 14:42:00 [place], Weight Mupirocin 2020-1 Yes See Memoria 0.02 MG/MG 0-13 Instructio l Topical 15:44: ns, APPLY Karen nn Ointment 00 EXTERNALLY TO THE AFFECTED AREA TWICE DAILY, # 66 gm, 1 Refill(s), [id number], 170.18, cm, 12/16/19 14:42:00 [place], Height, 164.318, kg, 12/16/19 14:42:00 [place], Weight Nitrofurant 2020-0 Yes 100 mg = 1 Memoria oin 100 MG 8-09 cap, PO, l Oral 17:57: BID, X 10 [place] Capsule 00 day, # 20 [Macrobid] cap, 0 Refill(s), [id number], 170.18, cm, 12/16/19 14:42:00 [place], Height, 164.318, kg, 12/16/19 14:42:00 [place], Weight Nitrofurant 2020-0 Yes 100 mg = 1 Memoria oin 100 MG 8-09 cap, PO, l Oral 17:57: BID, X 10 [place] Capsule 00 day, # 20 [Macrobid] cap, 0 Refill(s), [id number], 170.18, cm, 12/16/19 14:42:00 [place], Height, 164.318, kg, 12/16/19 14:42:00 [place], Weight Nitrofurant 2020-0 Yes 100 mg = 1 Memoria oin 100 MG 8-09 cap, PO, l Oral 17:57: BID, X 10 [place] Capsule 00 day, # 20 [Macrobid] cap, 0 Refill(s), [id number], 170.18, cm, 12/16/19 14:42:00 [place], Height, 164.318, kg, 12/16/19 14:42:00 [place], Weight Nitrofurant 2020-0 Yes 100 mg = 1 Memoria oin 100 MG 8-09 cap, PO, l Oral 17:57: BID, X 10 [place] Capsule 00 day, # 20 [Macrobid] cap, 0 Refill(s), [id number], 170.18, cm, 12/16/19 14:42:00 [place], Height, 164.318, kg, 12/16/19 14:42:00 [place], Weight Nitrofurant 2020-0 Yes 100 mg = 1 Memoria oin 100 MG 8-09 cap, PO, l Oral 17:57: BID, X 10 [place] Capsule 00 day, # 20 [Macrobid] cap, 0 Refill(s), [id number], 170.18, cm, 12/16/19 14:42:00 [place], Height, 164.318, kg, 12/16/19 14:42:00 [employer], Weight lisinopril 2020-0 Yes 2.5 mg = 1 M emoria 2.5 mg oral 6-04 tab, PO, l tablet 23:26: Daily, # [place] 00 30 tab, 2 Refill(s), called to pharmacy lisinopril 2020-0 Yes 2.5 mg = 1 M emoria 2.5 mg oral 6-04 tab, PO, l tablet 23:26: Daily, # [place] 00 30 tab, 2 Refill(s), called to pharmacy lisinopril 2020-0 Yes 2.5 mg = 1 M emoria 2.5 mg oral 6-04 tab, PO, l tablet 23:26: Daily, # [place] 00 30 tab, 2 Refill(s), called to pharmacy lisinopril 2020-0 Yes 2.5 mg = 1 M emoria 2.5 mg oral 6-04 tab, PO, l tablet 23:26: Daily, # [place] 00 30 tab, 2 Refill(s), called to pharmacy lisinopril 2020-0 Yes 2.5 mg = 1 M emoria 2.5 mg oral 6-04 tab, PO, l tablet 23:26: Daily, # [place] 00 30 tab, 2 Refill(s), called to pharmacy calcitriol 2020-0 Yes = 1 cap, Mem oria 0.25 mcg 5-20 PO, Daily, l oral 12:18: # 90 cap, Denis capsule 00 1 Refill(s), [facility][id number] calcitriol 2020-0 Yes = 1 cap, Mem oria 0.25 mcg 5-20 PO, Daily, l oral 12:18: # 90 cap, Denis capsule 00 1 Refill(s), [id number] calcitriol 2020-0 Yes = 1 cap, Mem oria 0.25 mcg 5-20 PO, Daily, l oral 12:18: # 90 cap, Denis capsule 00 1 Refill(s), [facility][id number] calcitriol 2020-0 Yes = 1 cap, Mem oria 0.25 mcg 5-20 PO, Daily, l oral 12:18: # 90 cap, Denis capsule 00 1 Refill(s), Pharmacy: [facility] #[id number] calcitriol 2020-0 Yes = 1 cap, Mem oria 0.25 mcg 5-20 PO, Daily, l oral 12:18: # 90 cap, [place] capsule 00 1 Refill(s), Pharmacy: [facility] #[id number] calcitriol 2020-0 Yes = 1 cap, Mem oria 0.25 mcg 4-16 PO, Daily, l oral 16:37: # 90 Denis capsule 47 unknown unit, Pharmacy: [facility] #[id number] calcitriol 2020-0 Yes = 1 cap, Mem oria 0.25 mcg 4-16 PO, Daily, l oral 16:37: # 90 [place] capsule 47 unknown unit, Pharmacy: [facility] #[id number] calcitriol 2020-0 Yes = 1 cap, Mem oria 0.25 mcg 4-16 PO, Daily, l oral 16:37: # 90 [place] capsule 47 unknown unit, Pharmacy: [facility] #[id number] calcitriol 2020-0 Yes = 1 cap, Mem oria 0.25 mcg 4-16 PO, Daily, l oral 16:37: # 90 Denis capsule 47 unknown unit, Pharmacy: [facility] #[id number] calcitriol 2020-0 Yes = 1 cap, Mem oria 0.25 mcg 4-16 PO, Daily, l oral 16:37: # 90 Denis capsule 47 unknown unit, Pharmacy: [facility] #[id number] Furosemide 2020-0 Yes = 1 tab, Mem oria 40 MG Oral 4-13 PO, Every l Tablet 20:06: Other Day, Karen nn 19 # 45 tab, Pharmacy: [facility] #[id number] Furosemide 2020-0 Yes = 1 tab, Mem oria 40 MG Oral 4-13 PO, Every l Tablet 20:06: Other Day, Karen nn 19 # 45 tab, Pharmacy: [facility] #[id number] Furosemide 2020-0 Yes = 1 tab, Mem oria 40 MG Oral 4-13 PO, Every l Tablet 20:06: Other Day, Karen nn 19 # 45 tab, Pharmacy: [facility] #[id number] Furosemide 2020-0 Yes = 1 tab, Mem oria 40 MG Oral 4-13 PO, Every l Tablet 20:06: Other Day, Karen nn 19 # 45 tab, Pharmacy: [facility] #[id number] Furosemide 2020-0 Yes = 1 tab, Mem oria 40 MG Oral 4-13 PO, Every l Tablet 20:06: Other Day, Karen nn 19 # 45 tab, Pharmacy: [facility] #[id number] prednisolon 2020-0 Yes 1 drop in M [...] each eye, l 10 MG/ML 20:53: once [place] Ophthalmic 00 daily, 0 Suspension Refill(s) bromfenac [...] 4-10 right eye, l Ophthalmic 20:53: once [place] Solution 00 daily, 0 [Prolensa] Refill(s) prednisolon 2020-0 Yes 1 drop in M emoria e acetate 4-10 each eye, l 10 MG/ML 20:53: once [place] Ophthalmic 00 daily, 0 Suspension Refill(s) bromfenac 2020-0 Yes 1 drop in Mem oria 0.7 MG/ML 4-10 right eye, l Ophthalmic 20:53: once [place] Solution 00 daily, 0 [Prolensa] Refill(s) prednisolon 2020-0 Yes 1 drop in M emoria e acetate 4-10 each eye, l 10 MG/ML 20:53: once [place] Ophthalmic 00 daily, 0 Suspension Refill(s) bromfenac 2020-0 Yes 1 drop in Mem oria 0.7 MG/ML 4-10 right eye, l Ophthalmic 20:53: once [place] Solution 00 daily, 0 [Prolensa] Refill(s) Furosemide 2020-0 Yes = 1 tab, Mem oria 40 MG Oral 1-23 PO, Every l Tablet 15:13: Other Day, Karen nn 34 # 45 tab, Pharmacy: [facility] #[id number] Furosemide 2020-0 Yes = 1 tab, Mem oria 40 MG Oral 1-23 PO, Every l Tablet 15:13: Other Day, [facility] 34 # 45 tab, Pharmacy: [facility] #[id number] Furosemide 2020-0 Yes = 1 tab, Mem oria 40 MG Oral 1-23 PO, Every l Tablet 15:13: Other Day, [facility] 34 # 45 tab, Pharmacy: [facility] #[id number] Furosemide 2020-0 Yes = 1 tab, Mem oria 40 MG Oral 1-23 PO, Every l Tablet 15:13: Other Day, [facility] 34 # 45 tab, Pharmacy: [facility] #[id number] Furosemide 2020-0 Yes = 1 tab, Mem oria 40 MG Oral 1-23 PO, Every l Tablet 15:13: Other Day, [facility] 34 # 45 tab, Pharmacy: [facility] #[id number] Mupirocin 2018-10 Yes See Memoria 0.02 MG/MG 2-27 Instructio l Topical 19:11: ns, # 66 Vicente n Ointment 15 gm, APPLY EXTERNALLY TO THE AFFECTED AREA TWICE DAILY, Pharmacy: [facility] #[id number] Mupirocin 2018-10 Yes See Memoria 0.02 MG/MG 2-27 Instructio l Topical 19:11: ns, # 66 Vicente n Ointment 15 gm, APPLY EXTERNALLY TO THE AFFECTED AREA TWICE DAILY, Pharmacy: [facility] #[id number] Mupirocin 2018-10 Yes See Memoria 0.02 MG/MG 2-27 Instructio l Topical 19:11: ns, # 66 Vicente n Ointment 15 gm, APPLY EXTERNALLY TO THE AFFECTED AREA TWICE DAILY, Pharmacy: [facility] #[id number] Mupirocin 2018-10 Yes See Memoria 0.02 MG/MG 2-27 Instructio l Topical 19:11: ns, # 66 [place] n Ointment 15 gm, APPLY EXTERNALLY TO THE AFFECTED AREA TWICE DAILY, Pharmacy: [facility] #[id number] Mupirocin 2018-10 Yes See Memoria 0.02 MG/MG 2-27 Instructio l Topical 19:11: ns, # 66 Vicente n Ointment 15 gm, APPLY EXTERNALLY TO THE AFFECTED AREA TWICE DAILY, Pharmacy: [facility] #[id number] Nitrofurant 2018-10 Yes 100 mg = 1 Memoria oin 100 MG 2-13 cap, PO, l Oral 01:44: BID, X 5 [place] Capsule 00 day, # 10 [[place] cap, 0 n] Refill(s), Pharmacy: [facility] #[id number] Nitrofurant 2018-10 Yes 100 mg = 1 Memoria oin 100 MG 2-13 cap, PO, l Oral 01:44: BID, X 5 [place] Capsule 00 day, # 10 [[place] cap, 0 n] Refill(s), Pharmacy: [facility] #[id number] Nitrofurant 2018-10 Yes 100 mg = 1 Memoria oin 100 MG 2-13 cap, PO, l Oral 01:44: BID, X 5 [place] Capsule 00 day, # 10 [[place] cap, 0 n] Refill(s), Pharmacy: [facility] #[id number] Nitrofurant 2018-10 Yes 100 mg = 1 Memoria oin 100 MG 2-13 cap, PO, l Oral 01:44: BID, X 5 [place] Capsule 00 day, # 10 [[place] cap, 0 n] Refill(s), Pharmacy: [facility] #[id number] Nitrofurant 2018-10 Yes 100 mg = 1 Memoria oin 100 MG 2-13 cap, PO, l Oral 01:44: BID, X 5 [place] Capsule 00 day, # 10 [[place] cap, 0 n] Refill(s), Pharmacy: [facility] #[id number] apixaban 2018-10 Yes 5 mg, PO, Me [...] ermann Bitartrate 00 5 MG Oral Tablet [[place] 5/325] apixaban 5 2018-10 Yes 5 mg, [...] ermann Bitartrate 00 5 MG Oral Tablet [[place] 5/325] apixaban 5 2018-10 Yes 5 mg, [...] ermann Bitartrate 00 5 MG Oral Tablet [[place] 5/325] apixaban 5 2018-10 Yes 5 mg, [...] ermann Bitartrate 00 5 MG Oral Tablet [[place] 5/325] apixaban 5 2018-10 Yes 5 mg, [...] ermann Bitartrate 00 5 MG Oral Tablet [[place] 5/325] calcitriol 2018-10 Yes = 1 cap, Mem oria 0.25 mcg 0-11 PO, Daily, l oral 21:10: # 90 [place] capsule 30 unknown unit, Pharmacy: [facility] #[id number] calcitriol 2018-10 Yes = 1 cap, Mem oria 0.25 mcg 0-11 PO, Daily, l oral 21:10: # 90 [place] capsule 30 unknown unit, Pharmacy: [facility] #[id number] calcitriol 2018-10 Yes = 1 cap, Mem oria 0.25 mcg 0-11 PO, Daily, l oral 21:10: # 90 [place] capsule 30 unknown unit, Pharmacy: [facility] #[id number] calcitriol 2018-10 Yes = 1 cap, Mem oria 0.25 mcg 0-11 PO, Daily, l oral 21:10: # 90 [place] capsule 30 unknown unit, Pharmacy: [facility] #[id number] calcitriol 2018-10 Yes = 1 cap, Mem oria 0.25 mcg 0-11 PO, Daily, l oral 21:10: # 90 [place] capsule 30 unknown unit, Pharmacy: [facility] #[id number] gabapentin Yes 300 mg = 1 M emoria 300 MG Oral 9-27 cap, PO, l Capsule 20:54: BID, # 180 Herm connie 00 cap, 3 Refill(s), called to pharmacy gabapentin 2019-0 Yes 300 mg = 1 M emoria 300 MG Oral 9-27 cap, PO, l Capsule 20:54: BID, # 180 Herm connie 00 cap, 3 Refill(s), called to pharmacy gabapentin 2019-0 Yes 300 mg = 1 M emoria 300 MG Oral 9-27 cap, PO, l Capsule 20:54: BID, # 180 [place] connie 00 cap, 3 Refill(s), called to pharmacy gabapentin 2019-0 Yes 300 mg = 1 M emoria 300 MG Oral 9-27 cap, PO, l Capsule 20:54: BID, # 180 [place] connie 00 cap, 3 Refill(s), called to pharmacy gabapentin 2019-0 Yes 300 mg = 1 M emoria 300 MG Oral 9-27 cap, PO, l Capsule 20:54: BID, # 180 Herm connie 00 cap, 3 Refill(s), called to pharmacy allopurinol 2019-0 Yes = 1 tab, Me moria 300 mg oral 8-17 PO, Daily, l tablet 02:39: # 90 tabVicente n Pharmacy: [facility] #[id number] allopurinol 2019-0 Yes = 1 tab, Me moria 300 mg oral 8-17 PO, Daily, l tablet 02:39: # 90 tabVicente n Pharmacy: [facility] #[id number] allopurinol 2019-0 Yes = 1 tab, Me moria 300 mg oral 8-17 PO, Daily, l tablet 02:39: # 90 tabVicente n Pharmacy: [facility] #[id number] allopurinol 2019-0 Yes = 1 tab, Me moria 300 mg oral 8-17 PO, Daily, l tablet 02:39: # 90 tabVicente n 31 Pharmacy: [facility] #[id number] allopurinol 2019-0 Yes = 1 tab, Me moria 300 mg oral 8-17 PO, Daily, l tablet 02:39: # 90 tabVicente n Pharmacy: [facility] #[id number] QUEtiapine 2019-0 Yes 50 mg = 1 [...] hours, # 6 tab, 0 Refill(s) eletriptan 2018- Yes 40 mg = 1 Me moria 40 mg oral 6-06 tab, PO, l tablet 15:26: Daily, PRN Karen nn 00 for migraine headache, may repeat dose once in 2 hours, # 6 tab, 0 Refill(s) eletriptan 2018- Yes 40 mg = 1 Me moria 40 mg oral 6-06 tab, PO, l tablet 15:26: Daily, PRN Karen nn 00 for migraine headache, may repeat dose once in 2 hours, # 6 tab, 0 Refill(s) eletriptan 2018- Yes 40 mg = [...] BEDTIME, # 90 tab, 1 Refill(s), Pharmacy: [address] Yes See Memori a n 40 mg 3-14 Instructio l oral tablet 15:07: ns, TAKE 1 [place] 35 TABLET BY MOUTH EVERY NIGHT AT BEDTIME, # 90 tab, 1 Refill(s), Pharmacy: [address] Yes See Memori a n 40 mg 3-14 Instructio l oral tablet 15:07: ns, TAKE 1 [place] 35 TABLET BY MOUTH EVERY NIGHT AT BEDTIME, # 90 tab, 1 Refill(s), Pharmacy: [address] Yes See Memori a n 40 mg 3-14 Instructio l oral tablet 15:07: ns, TAKE 1 [place] 35 TABLET BY MOUTH EVERY NIGHT AT BEDTIME, # 90 tab, 1 Refill(s), Pharmacy: [address] Yes See Memori a n 40 mg 3-14 Instructio l oral tablet 15:07: ns, TAKE 1 [place] 35 TABLET BY MOUTH EVERY NIGHT AT BEDTIME, # 90 tab, 1 Refill(s), [facility] [place] [address] [facility] Memoria 5 mg oral 3-14 Instructio l tablet 15:07: ns, TAKE 1 Karen nn 33 TABLET BY MOUTH EVERY DAY, # 90 tab, 1 Refill(s), Pharmacy: [place] [address] amLODIPine Yes See Memoria 5 mg oral 3-14 Instructio l tablet 15:07: ns, TAKE 1 Karen nn 33 TABLET BY MOUTH EVERY DAY, # 90 tab, 1 Refill(s), Pharmacy: [place] [address] amLODIPine Yes See Memoria 5 mg oral 3-14 Instructio l tablet 15:07: ns, TAKE 1 Karen nn 33 TABLET BY MOUTH EVERY DAY, # 90 tab, 1 Refill(s), Pharmacy: [place] [address] amLODIPine Yes See Memoria 5 mg oral 3-14 Instructio l tablet 15:07: ns, TAKE 1 Karen nn 33 TABLET BY MOUTH EVERY DAY, # 90 tab, 1 Refill(s), Pharmacy: [facility] [place] [address] amLODIPine Yes See Memoria 5 mg oral 3-14 Instructio l tablet 15:07: ns, TAKE 1 Karen nn 33 TABLET BY MOUTH EVERY DAY, # 90 tab, 1 Refill(s), Pharmacy: [facility] [place] [address] lisinopril Yes See Memoria 5 mg oral 8-21 Instructio l tablet 19:00: ns, TAKE 1 Karen nn 30 TABLET BY MOUTH DAILY, # 90 tab, 1 Refill(s), Pharmacy: [facility] [place] [address] lisinopril Yes See Memoria 5 mg oral 8-21 Instructio l tablet 19:00: ns, TAKE 1 Karen nn 30 TABLET BY MOUTH DAILY, # 90 tab, 1 Refill(s), Pharmacy: [facility] [place] [address] lisinopril Yes See Memoria 5 mg oral 8-21 Instructio l tablet 19:00: ns, TAKE 1 Karen nn 30 TABLET BY MOUTH DAILY, # 90 tab, 1 Refill(s), Pharmacy: [facility] [place] [address] lisinopril Yes See Memoria 5 mg oral 8-21 Instructio l tablet 19:00: ns, TAKE 1 Karen nn 30 TABLET BY MOUTH DAILY, # 90 tab, 1 Refill(s), Pharmacy: [facility] [place] [address] lisinopril Yes See Memoria 5 mg oral 8-21 Instructio l tablet 19:00: ns, TAKE 1 Karen nn 30 TABLET BY MOUTH DAILY, # 90 tab, 1 Refill(s), Pharmacy: [facility] [place] [address] atorvastati Yes See Memori a n 40 mg 8-21 Instructio l oral tablet 18:50: ns, TAKE 1 [place] 45 TABLET BY MOUTH EVERY NIGHT AT BEDTIME, # 30 tab, 5 Refill(s), Pharmacy: [facility] [place] [address] atorvastati Yes See Memori a n 40 mg 8-21 Instructio l oral tablet 18:50: ns, TAKE 1 [place] 45 TABLET BY MOUTH EVERY NIGHT AT BEDTIME, # 30 tab, 5 Refill(s), Pharmacy: [facility] [place] [address] atorvastati Yes See Memori a n 40 mg 8-21 Instructio l oral tablet 18:50: ns, TAKE 1 [place] 45 TABLET BY MOUTH EVERY NIGHT AT BEDTIME, # 30 tab, 5 Refill(s), Pharmacy: [facility] [place] [address] atorvastati Yes See Memori a n 40 mg 8-21 Instructio l oral tablet 18:50: ns, TAKE 1 [place] 45 TABLET BY MOUTH EVERY NIGHT AT BEDTIME, # 30 tab, 5 Refill(s), Pharmacy: [place] [address] atorvastati Yes See Memori a n 40 mg 8-21 Instructio l oral tablet 18:50: ns, TAKE 1 [place] 45 TABLET BY MOUTH EVERY NIGHT AT BEDTIME, # 30 tab, 5 Refill(s), Pharmacy: [place] [address] amLODIPine Yes See Memoria 5 mg oral 8-21 Instructio l tablet 18:50: ns, TAKE 1 Karen nn 41 TABLET BY MOUTH EVERY DAY, # 30 tab, 5 Refill(s), Pharmacy: [place] [address] amLODIPine Yes See Memoria 5 mg oral 8-21 Instructio l tablet 18:50: ns, TAKE 1 Karen nn 41 TABLET BY MOUTH EVERY DAY, # 30 tab, 5 Refill(s), Pharmacy: [facility] [place] [address] amLODIPine Yes See Memoria 5 mg oral 8-21 Instructio l tablet 18:50: ns, TAKE 1 Karen nn 41 TABLET BY MOUTH EVERY DAY, # 30 tab, 5 Refill(s), Pharmacy: [facility] [place] [address] amLODIPine Yes See Memoria 5 mg oral 8-21 Instructio l tablet 18:50: ns, TAKE 1 Karen nn 41 TABLET BY MOUTH EVERY DAY, # 30 tab, 5 Refill(s), Pharmacy: [facility] [place] [address] amLODIPine Yes See Memoria 5 mg oral 8-21 Instructio l tablet 18:50: ns, TAKE 1 Karen nn 41 TABLET BY MOUTH EVERY DAY, # 30 tab, 5 Refill(s), Pharmacy: [place] [address] lisinopril 0 No See Memoria 5 mg oral 7-31 Instructio l tablet 15:28: ns, # 90 [place] 34 tab, TAKE 1 TABLET BY MOUTH DAILY, Pharmacy: [facility] [place] [address] lisinopril 0 No See Memoria 5 mg oral 7-31 Instructio l tablet 15:28: ns, # 90 [place] 34 tab, TAKE 1 TABLET BY MOUTH DAILY, Pharmacy: [facility] [place] [address] lisinopril No See Memoria 5 mg oral 7-31 Instructio l tablet 15:28: ns, # 90 [place] 34 tab, TAKE 1 TABLET BY MOUTH DAILY, Pharmacy: [facility] [place] [address] lisinopril No See Memoria 5 mg oral 7-31 Instructio l tablet 15:28: ns, # 90 [place] 34 tab, TAKE 1 TABLET BY MOUTH DAILY, Pharmacy: [facility] [place] [address] lisinopril No See Memoria 5 mg oral 7-31 Instructio l tablet 15:28: ns, # 90 [place] 34 tab, TAKE 1 TABLET BY MOUTH DAILY, Pharmacy: [facility] [place] [address] allopurinol No 300 mg = 1 Memoria 300 mg oral 5-10 tab, PO, l tablet 13:59: Daily, # [place] 00 90 tab, 1 Refill(s), Pharmacy: [facility] [place] [address] allopurinol No 300 mg = 1 Memoria 300 mg oral 5-10 tab, PO, l tablet 13:59: Daily, # [place] 00 90 tab, 1 Refill(s), Pharmacy: [facility] [place] [address] allopurinol No 300 mg = 1 Memoria 300 mg oral 5-10 tab, PO, l tablet 13:59: Daily, # [place] 00 90 tab, 1 Refill(s), Pharmacy: [facility] [place] [address] allopurinol No 300 mg = 1 Memoria 300 mg oral 5-10 tab, PO, l tablet 13:59: Daily, # Denis 00 90 tab, 1 Refill(s), Pharmacy: [facility] [place] [address] allopurinol No 300 mg = 1 Memoria 300 mg oral 5-10 tab, PO, l tablet 13:59: Daily, # Denis 00 90 tab, 1 Refill(s), Pharmacy: [facility] [place] [address] lisinopril 0 No See Memoria 5 mg oral 5-01 Instructio l tablet 12:38: ns, # 90 [place] 18 tab, TAKE 1 TABLET BY MOUTH DAILY, Pharmacy: [facility] [place] [address] ALLOPURINOL 0 Yes See Memori a 300MG 5-01 Instructio l TABLETS 12:38: ns, # 90 Vicente n 18 tab, TAKE 1 TABLET BY MOUTH DAILY, Pharmacy: [facility] [place] [address] lisinopril 0 No See Memoria 5 mg oral 5-01 Instructio l tablet 12:38: ns, # 90 [place] 18 tab, TAKE 1 TABLET BY MOUTH DAILY, Pharmacy: [facility] [place] [address] ALLOPURINOL Yes See Memori a 300MG 5-01 Instructio l TABLETS 12:38: ns, # 90 Vicente n 18 tab, TAKE 1 TABLET BY MOUTH DAILY, Pharmacy: [facility] [place] [address] lisinopril No See Memoria 5 mg oral 5-01 Instructio l tablet 12:38: ns, # 90 [place] 18 tab, TAKE 1 TABLET BY MOUTH DAILY, Pharmacy: [facility] [place] [address] ALLOPURINOL 0 Yes See Memori a 300MG 5-01 Instructio l TABLETS 12:38: ns, # 90 Vicente n 18 tab, TAKE 1 TABLET BY MOUTH DAILY, Pharmacy: [facility] [place] [address] lisinopril 0 No See Memoria 5 mg oral 5-01 Instructio l tablet 12:38: ns, # 90 [place] 18 tab, TAKE 1 TABLET BY MOUTH DAILY, Pharmacy: [facility] [place] [address] ALLOPURINOL [id number] Yes See Memori a 300MG 5-01 Instructio l TABLETS 12:38: ns, # 90 Vicente n 18 tab, TAKE 1 TABLET BY MOUTH DAILY, Pharmacy: [facility] [place] [address] lisinopril 0 No See Memoria 5 mg oral 5-01 Instructio l tablet 12:38: ns, # 90 Denis 18 tab, TAKE 1 TABLET BY MOUTH DAILY, Pharmacy: [facility] [place] [address] ALLOPURINOL [id number] Yes See Memori a 300MG 5-01 Instructio l TABLETS 12:38: ns, # 90 Vicente n 18 tab, TAKE 1 TABLET BY MOUTH DAILY, Pharmacy: [facility] [place] [address] calcitriol Yes 0.25 Memoria 0.25 mcg 3-28 microgram l oral 13:49: = 1 cap, Denis capsule 00 PO, Daily, # 90 cap, 3 Refill(s), Pharmacy: [facility] [place] [address] calcitriol Yes 0.25 Memoria 0.25 mcg 3-28 microgram l oral 13:49: = 1 cap, Denis capsule 00 PO, Daily, # 90 cap, 3 Refill(s), Pharmacy: [facility] [place] [address] calcitriol Yes 0.25 Memoria 0.25 mcg 3-28 microgram l oral 13:49: = 1 cap, [place] capsule 00 PO, Daily, # 90 cap, 3 Refill(s), Pharmacy: [facility] [place] [address] calcitriol Yes 0.25 Memoria 0.25 mcg 3-28 microgram l oral 13:49: = 1 cap, [place] capsule 00 PO, Daily, # 90 cap, 3 Refill(s), Pharmacy: [facility] [place] [address] calcitriol Yes 0.25 Memoria 0.25 mcg 3-28 microgram l oral 13:49: = 1 cap, Denis capsule 00 PO, Daily, # 90 cap, 3 Refill(s), Pharmacy: [facility] [place] [address] Mupirocin Yes 1 appl, Memor ia 0.02 MG/MG 3-21 TOP, BID, l Topical 15:37: 30 grams Vicente n Ointment 21 3each, # 3 ea, 1 Refill(s), Pharmacy: [facility] [place] [address] Mupirocin Yes 1 appl, Memor ia 0.02 MG/MG 3-21 TOP, BID, l Topical 15:37: 30 grams Vicente n Ointment 21 3each, # 3 ea, 1 Refill(s), Pharmacy: [facility] [place] [address] Mupirocin Yes 1 appl, Memor ia 0.02 MG/MG 3-21 TOP, BID, l Topical 15:37: 30 grams Vicente n Ointment 21 3each, # 3 ea, 1 Refill(s), Pharmacy: [facility] [place] [address] Mupirocin Yes 1 appl, Memor ia 0.02 MG/MG 3-21 TOP, BID, l Topical 15:37: 30 grams Vicente n Ointment 21 3each, # 3 ea, 1 Refill(s), Pharmacy: [facility] [place] [address] Mupirocin Yes 1 appl, Memor ia 0.02 MG/MG 3-21 TOP, BID, l Topical 15:37: 30 grams Vicente n Ointment 21 3each, # 3 ea, 1 Refill(s), Pharmacy: [facility] [place] [address] atorvastati Yes See Memori a n 40 mg 3-21 Instructio l oral tablet 15:36: ns, TAKE 1 [place] 22 TABLET BY MOUTH EVERY NIGHT AT BEDTIME, # 30 tab, 5 Refill(s), Pharmacy: [facility] [place] [address] atorvastati Yes See Memori a n 40 mg 3-21 Instructio l oral tablet 15:36: ns, TAKE 1 Denis 22 TABLET BY MOUTH EVERY NIGHT AT BEDTIME, # 30 tab, 5 Refill(s), Pharmacy: [facility] [place] [address] atorvastati Yes See Memori a n 40 mg 3-21 Instructio l oral tablet 15:36: ns, TAKE 1 Denis 22 TABLET BY MOUTH EVERY NIGHT AT BEDTIME, # 30 tab, 5 Refill(s), Pharmacy: [facility] [place] [address] atorvastati Yes See Memori a n 40 mg 3-21 Instructio l oral tablet 15:36: ns, TAKE 1 [place] 22 TABLET BY MOUTH EVERY NIGHT AT BEDTIME, # 30 tab, 5 Refill(s), Pharmacy: [facility] [place] [address] atorvastati Yes See Memori a n 40 mg 3-21 Instructio l oral tablet 15:36: ns, TAKE 1 [place] 22 TABLET BY MOUTH EVERY NIGHT AT BEDTIME, # 30 tab, 5 Refill(s), Pharmacy: [facility] [place] [address] amLODIPine Yes See Memoria 5 mg oral 3-21 Instructio l tablet 15:36: ns, TAKE 1 Karen nn 18 TABLET BY MOUTH EVERY DAY, # 30 tab, 5 Refill(s), Pharmacy: [facility] [place] [address] amLODIPine Yes See Memoria 5 mg oral 3-21 Instructio l tablet 15:36: ns, TAKE 1 Karen nn 18 TABLET BY MOUTH EVERY DAY, # 30 tab, 5 Refill(s), Pharmacy: [facility] [employer] [facility] amLODIPine Yes See Memoria 5 mg oral 3-21 Instructio l tablet 15:36: ns, TAKE 1 Karen nn 18 TABLET BY MOUTH EVERY DAY, # 30 tab, 5 Refill(s), Pharmacy: [facility] [employer] [facility] amLODIPine Yes See Memoria 5 mg oral 3-21 Instructio l tablet 15:36: ns, TAKE 1 Karen nn 18 TABLET BY MOUTH EVERY DAY, # 30 tab, 5 Refill(s), Pharmacy: [facility] [place] [address] amLODIPine Yes See Memoria 5 mg oral 3-21 Instructio l tablet 15:36: ns, TAKE 1 Karen nn 18 TABLET BY MOUTH EVERY DAY, # 30 tab, 5 Refill(s), Pharmacy: [facility] [place] [address] aspirin 81 2017- Yes 81 mg = 1 Me moria mg tablet, 1-24 tab, PO, l enteric 16:34: Daily, # Vicente n coated 00 90 tab, 3 Refill(s) aspirin 81 2017-0 Yes 81 mg = 1 Me moria mg tablet, 1-24 tab, PO, l enteric 16:34: Daily, # Vciente n coated 00 90 tab, 3 Refill(s) [...] coated 00 90 tab, 3 Refill(s) Xopenex 0 No Kyle K 0.63 mg = Mem oria 0.63 mg/3 3-11 Silvestre 3 mL, l mL 01:00: Soln, NEB, Denis inhalation 00 Once, solution first dose 12/30/15 19:00:00 [employer], stop date 12/30/15 19:00:00 [employer] Xopenex No Kyle K 0.63 mg = Mem oria 0.63 mg/3 3-11 Silvestre 3 mL, l mL 01:00: Soln, NEB, [place] inhalation 00 Once, solution first dose 12/30/15 19:00:00 [employer], stop date 12/30/15 19:00:00 [employer] Xopenex No Kyle K 0.63 mg = Mem oria 0.63 mg/3 3-11 Silvestre 3 mL, l mL 01:00: Soln, NEB, [place] inhalation 00 Once, solution first dose 12/30/15 19:00:00 [employer], stop date 12/30/15 19:00:00 [employer] Xopenex No Kyle K 0.63 mg = Mem oria 0.63 mg/3 3-11 Silvestre 3 mL, l mL 01:00: Soln, NEB, [place] inhalation 00 Once, solution first dose 12/30/15 19:00:00 [employer], stop date 12/30/15 19:00:00 [employer] Xopenex No Kyle K 0.63 mg = Mem oria 0.63 mg/3 3-11 Silvestre 3 mL, l mL 01:00: Soln, NEB, [place] inhalation 00 Once, solution first dose 12/30/15 19:00:00 [employer], stop date 12/30/15 19:00:00 [employer] Misc 0 No Perico 300 mL, Memoria Medication 3-11 Wheat Soln-IV, l 00:03: IV, Once, Denis 00 first dose 12/30/15 18:03:00 [employer], stop date 12/30/15 18:03:00 [employer] Misc 0 No Perico 300 mL, Memoria Medication 3-11 Wheat Soln-IV, l 00:03: IV, Once, Denis 00 first dose 12/30/15 18:03:00 [employer], stop date 12/30/15 18:03:00 [employer] [facility] [place] Perico 300 mL, Memoria Medication 3-11 Wheat Soln-IV, l 00:03: IV, Once, Denis first dose 12/30/15 18:03:00 [employer], stop date 12/30/15 18:03:00 [employer] [facility] [place] No Perico 300 mL, Memoria Medication 3-11 Wheat Soln-IV, l 00:03: IV, Once, [place] first dose 12/30/15 18:03:00 [employer], stop date 12/30/15 18:03:00 [employer] [facility] [place] No Perico 300 mL, Memoria Medication 3-11 Wheat Soln-IV, l 00:03: IV, Once, [place] 00 first dose 12/30/15 18:03:00 [employer], stop date 12/30/15 18:03:00 [employer] albuterol No Kyle K 2.5 mg = 3 Memoria 2.5 mg/3 mL 3-11 Silvestre mL, Soln, l (0.083%) 00:02: NEB, Once Herm connie inhalation 00 PRN for solution wheezing, first dose 12/30/15 18:02:00 [employer] Demerol HCl No Kyle K 12.5 mg = Memoria 3-11 Silvestre 0.25 mL, l 00:02: Injection, [place] 00 IV Push, Once PRN for shivers, first dose 12/30/15 18:02:00 [employer] ondansetron No Kyle K 4 mg = 2 Memoria 3-11 Silvestre mL, l 00:02: Injection, [place] 00 IV Push, q15min PRN for nausea/vom iting, order duration: 2 doses, first dose 12/30/15 18:02:00 [employer], stop date Limited # of times Dilaudid No Kyle K 0.5 mg = Mem oria 3-11 Silvestre 0.25 mL, l 00:02: Injection, [place] 00 IV Push, q10min PRN for pain severe (7-10), first dose 12/30/15 18:02:00 [employer] diphenhydrA No Kyle K 25 mg = M emoria MINE 3-11 Silvestre 0.5 mL, l 00:02: Injection, Denis 00 IV Push, Once PRN for itching, first dose 12/30/15 18:02:00 [employer] LR 1,000 mL No Kyle K 1,000 mL, Memoria 3-11 Silvestre IV, 75 l 00:02: mL/hr, Denis 00 start date 12/30/15 18:02:00 [employer] Saline Lock No Kyle K 10 mL, Me moria Flush 3-11 Silvestre Soln, IV l 00:02: Push, As Denis 00 Indicated PRN for flush, first dose 12/30/15 18:02:00 [employer] Bupivacaine No Kyle K 300 mL, M emoria 0.25% 300 3-11 Silvestre Nerve l mL pump 300 00:02: Block, 5 He rmann mL 00 mL/hr, start date 12/30/15 18:02:00 [employer] promethazin No Kyle K 12.5 mg = Memoria e 3-11 Silvestre 0.5 mL, l 00:02: Injection, Denis 00 IM, Once PRN for severe nausea, first dose 12/30/15 18:02:00 [employer] albuterol No Kyle K 2.5 mg = 3 Memoria 2.5 mg/3 mL 3-11 Silvestre mL, Soln, l (0.083%) 00:02: NEB, Once Herm connie inhalation 00 PRN for solution wheezing, first dose 12/30/15 18:02:00 [employer] Demerol HCl No Kyle K 12.5 mg = Memoria 3-11 Silvestre 0.25 mL, l 00:02: Injection, [place] 00 IV Push, Once PRN for shivers, first dose 12/30/15 18:02:00 [employer] ondansetron No Kyle K 4 mg = 2 Memoria 3-11 Silvestre mL, l 00:02: Injection, [place] 00 IV Push, q15min PRN for nausea/vom iting, order duration: 2 doses, first dose 12/30/15 18:02:00 [employer], stop date Limited # of times Dilaudid No Kyle K 0.5 mg = Mem oria 3-11 Silvestre 0.25 mL, l 00:02: Injection, Denis 00 IV Push, q10min PRN for pain severe (7-10), first dose 12/30/15 18:02:00 [employer] diphenhydrA No Kyle K 25 mg = M emoria MINE 3-11 Silvestre 0.5 mL, l 00:02: Injection, [place] 00 IV Push, Once PRN for itching, first dose 12/30/15 18:02:00 [employer] LR 1,000 mL No Kyle K 1,000 mL, Memoria 3-11 Silvestre IV, 75 l 00:02: mL/hr, [place] 00 start date 12/30/15 18:02:00 [employer] Saline Lock No Kyle K 10 mL, Me moria Flush 3-11 Silvestre Soln, IV l 00:02: Push, As Denis 00 Indicated PRN for flush, first dose 12/30/15 18:02:00 [employer] Bupivacaine No Kyle K 300 mL, M emoria 0.25% 300 3-11 Silvestre Nerve l mL pump 300 00:02: Block, 5 He rmann mL 00 mL/hr, start date 12/30/15 18:02:00 [employer] promethazin No Kyle K 12.5 mg = Memoria e 3-11 Silvestre 0.5 mL, l 00:02: Injection, [place] 00 IM, Once PRN for severe nausea, first dose 12/30/15 18:02:00 [employer] albuterol No Kyle K 2.5 mg = 3 Memoria 2.5 mg/3 mL 3-11 Silvestre mL, Soln, l (0.083%) 00:02: NEB, Once Herm connie inhalation 00 PRN for solution wheezing, first dose 12/30/15 18:02:00 [employer] Demerol HCl No Kyle K 12.5 mg = Memoria 3-11 Silvestre 0.25 mL, l 00:02: Injection, [place] 00 IV Push, Once PRN for shivers, first dose 12/30/15 18:02:00 [employer] ondansetron No Kyle K 4 mg = 2 Memoria 3-11 Silvestre mL, l 00:02: Injection, [place] 00 IV Push, q15min PRN for nausea/vom iting, order duration: 2 doses, first dose 12/30/15 18:02:00 [employer], stop date Limited # of times Dilaudid No Kyle K 0.5 mg = Mem oria 3-11 Silvestre 0.25 mL, l 00:02: Injection, Denis 00 IV Push, q10min PRN for pain severe (7-10), first dose 12/30/15 18:02:00 [employer] diphenhydrA No Kyle K 25 mg = M emoria MINE 3-11 Silvestre 0.5 mL, l 00:02: Injection, Denis 00 IV Push, Once PRN for itching, first dose 12/30/15 18:02:00 [employer] LR 1,000 mL No Kyle K 1,000 mL, Memoria 3-11 Silvestre IV, 75 l 00:02: mL/hr, [place] 00 start date 12/30/15 18:02:00 [employer] Saline Lock No Kyle K 10 mL, Me moria Flush 3-11 Silvestre Soln, IV l 00:02: Push, As [place] 00 Indicated PRN for flush, first dose 12/30/15 18:02:00 [employer] Bupivacaine No Kyle K 300 mL, M emoria 0.25% 300 3-11 Silvestre Nerve l mL pump 300 00:02: Block, 5 He rmann mL 00 mL/hr, start date 12/30/15 18:02:00 [employer] promethazin No Kyle K 12.5 mg = Memoria e 3-11 Silvestre 0.5 mL, l 00:02: Injection, [place] 00 IM, Once PRN for severe nausea, first dose 12/30/15 18:02:00 [employer] albuterol No Kyle K 2.5 mg = 3 Memoria 2.5 mg/3 mL 3-11 Silvestre mL, Soln, l (0.083%) 00:02: NEB, Once Herm connie inhalation 00 PRN for solution wheezing, first dose 12/30/15 18:02:00 [employer] Demerol HCl No Kyle K 12.5 mg = Memoria 3-11 Silvestre 0.25 mL, l 00:02: Injection, Denis 00 IV Push, Once PRN for shivers, first dose 12/30/15 18:02:00 [employer] ondansetron No Kyle K 4 mg = 2 Memoria 3-11 Silvestre mL, l 00:02: Injection, Denis 00 IV Push, q15min PRN for nausea/vom iting, order duration: 2 doses, first dose 12/30/15 18:02:00 [employer], stop date Limited # of times Dilaudid No Kyle K 0.5 mg = Mem oria 3-11 Silvestre 0.25 mL, l 00:02: Injection, Denis 00 IV Push, q10min PRN for pain severe (7-10), first dose 12/30/15 18:02:00 [employer] diphenhydrA No Kyle K 25 mg = M emoria MINE 3-11 Silvestre 0.5 mL, l 00:02: Injection, [place] 00 IV Push, Once PRN for itching, first dose 12/30/15 18:02:00 [employer] LR 1,000 mL No Kyle K 1,000 mL, Memoria 3-11 Silvestre IV, 75 l 00:02: mL/hr, [place] 00 start date 12/30/15 18:02:00 [employer] Saline Lock No Kyle K 10 mL, Me moria Flush 3-11 Silvestre Soln, IV l 00:02: Push, As Denis 00 Indicated PRN for flush, first dose 12/30/15 18:02:00 [employer] Bupivacaine No Kyle K 300 mL, M emoria 0.25% 300 3-11 Silvestre Nerve l mL pump 300 00:02: Block, 5 He rmann mL 00 mL/hr, start date 12/30/15 18:02:00 [employer] promethazin No Kyle K 12.5 mg = Memoria e 3-11 Silvestre 0.5 mL, l 00:02: Injection, [place] 00 IM, Once PRN for severe nausea, first dose 12/30/15 18:02:00 [employer] albuterol No Ykle K 2.5 mg = 3 Memoria 2.5 mg/3 mL 3-11 Silvestre mL, Soln, l (0.083%) 00:02: NEB, Once Herm connie inhalation 00 PRN for solution wheezing, first dose 12/30/15 18:02:00 [employer] Demerol HCl No Kyle K 12.5 mg = Memoria 3-11 Silvestre 0.25 mL, l 00:02: Injection, Denis 00 IV Push, Once PRN for shivers, first dose 12/30/15 18:02:00 [employer] ondansetron No Kyle K 4 mg = 2 Memoria 3-11 Silvestre mL, l 00:02: Injection, [place] 00 IV Push, q15min PRN for nausea/vom iting, order duration: 2 doses, first dose 12/30/15 18:02:00 [employer], stop date Limited # of times Dilaudid No Kyle K 0.5 mg = Mem oria 3-11 Silvestre 0.25 mL, l 00:02: Injection, Denis 00 IV Push, q10min PRN for pain severe (7-10), first dose 12/30/15 18:02:00 [employer] diphenhydrA No Kyle K 25 mg = M emoria MINE 3-11 Silvestre 0.5 mL, l 00:02: Injection, [place] 00 IV Push, Once PRN for itching, first dose 12/30/15 18:02:00 [employer] C[employer] LR 1,000 mL No Kyle K 1,000 mL, Memoria 3-11 Silvestre IV, 75 l 00:02: mL/hr, [place] 00 start date 12/30/15 18:02:00 [employer] Saline Lock No Kyle K 10 mL, Me moria Flush 3-11 Silvestre Soln, IV l 00:02: Push, As [place] 00 Indicated PRN for flush, first dose 12/30/15 18:02:00 [employer] Bupivacaine No Kyle K 300 mL, M emoria 0.25% 300 3-11 Silvestre Nerve l mL pump 300 00:02: Block, 5 He rmann mL 00 mL/hr, start date 12/30/15 18:02:00 [employer] promethazin No Kyle K 12.5 mg = Memoria e 3-11 Silvestre 0.5 mL, l 00:02: Injection, [place] 00 IM, Once PRN for severe nausea, first dose 12/30/15 18:02:00 [employer] Misc No Perico 1,000 mL, Memori a Medication 3-10 Wheat Soln-IV, l 23:42: IV, Once, Denis first dose 12/30/15 17:42:00 [employer], stop date 12/30/15 17:42:00 [employer] [facility] [place] Perico 1,000 mL, Memori a Medication 3-10 Wheat Soln-IV, l 23:42: IV, Once, Denis 00 first dose 12/30/15 17:42:00 [employer], stop date 12/30/15 17:42:00 [employer] [facility] [place] Perico 1,000 mL, Memori a Medication 3-10 Wheat Soln-IV, l 23:42: IV, Once, first dose 12/30/15 17:42:00 [employer], stop date 12/30/15 17:42:00 [employer] [facility] [place] No Perico 1,000 mL, Memori a Medication 3-10 Wheat Soln-IV, l 23:42: IV, Once, [place] 00 first dose 12/30/15 17:42:00 [employer], stop date 12/30/15 17:42:00 [employer] [facility] [place] No Perico 1,000 mL, Memori a Medication 3-10 Wheat Soln-IV, l 23:42: IV, Once, first dose 12/30/15 17:42:00 [employer], stop date 12/30/15 17:42:00 [employer] fentaNYL No Perico 25 mcg = Mem oria 3-10 Wheat 0.5 mL, l 23:20: Injection, Denis 00 IV, Once, first dose 12/30/15 17:20:00 [employer], stop date 12/30/15 17:20:00 [employer] fentaNYL No Perico 25 mcg = Mem oria 3-10 Wheat 0.5 mL, l 23:20: Injection, [place] 00 IV, Once, first dose 12/30/15 17:20:00 [employer], stop date 12/30/15 17:20:00 [employer] fentaNYL No Perico 25 mcg = Mem oria 3-10 Wheat 0.5 mL, l 23:20: Injection, [place] 00 IV, Once, first dose 12/30/15 17:20:00 [employer], stop date 12/30/15 17:20:00 [employer] fentaNYL 2016-0 No Perico 25 mcg = Mem oria 3-10 Wheat 0.5 mL, l 23:20: Injection, [place] 00 IV, Once, first dose 12/30/15 17:20:00 [employer], stop date 12/30/15 17:20:00 [employer] fentaNYL 2016-0 No Perico 25 mcg = Mem oria 3-10 Wheat 0.5 mL, l 23:20: Injection, [place] 00 IV, Once, first dose 12/30/15 17:20:00 [employer], stop date 12/30/15 17:20:00 [employer] ondansetron 2015-0 No Perico 4 mg = 2 Memoria 3-10 Wheat mL, l 23:03: Injection, [place] 00 IV, Once, first dose 12/30/15 17:03:00 [employer], stop date 12/30/15 17:03:00 [employer] ondansetron 2015-0 No Perico 4 mg = 2 Memoria 3-10 Wheat mL, l 23:03: Injection, [place] 00 IV, Once, first dose 12/30/15 17:03:00 [employer], stop date 12/30/15 17:03:00 [employer] ondansetron 2015-0 No Perico 4 mg = 2 Memoria 3-10 Wheat mL, l 23:03: Injection, [place] 00 IV, Once, first dose 12/30/15 17:03:00 [employer], stop date 12/30/15 17:03:00 [employer] ondansetron 2016-0 No Perico 4 mg = 2 Memoria 3-10 Wheat mL, l 23:03: Injection, [place] 00 IV, Once, first dose 12/30/15 17:03:00 [employer], stop date 12/30/15 17:03:00 [employer] ondansetron 2015-0 No Perico 4 mg = 2 Memoria 3-10 Wheat mL, l 23:03: Injection, [place] 00 IV, Once, first dose 12/30/15 17:03:00 [employer], stop date 12/30/15 17:03:00 [employer] fentaNYL 2016-0 No Perico 25 mcg = Mem oria 3-10 Wheat 0.5 mL, l 23:00: Injection, Denis 00 IV, Once, first dose 12/30/15 17:00:00 [employer], stop date 12/30/15 17:00:00 [employer] fentaNYL 2015-0 No Perico 25 mcg = Mem oria 3-10 Wheat 0.5 mL, l 23:00: Injection, Denis 00 IV, Once, first dose 12/30/15 17:00:00 [employer], stop date 12/30/15 17:00:00 [employer] fentaNYL 2015-0 No Perico 25 mcg = Mem oria 3-10 Wheat 0.5 mL, l 23:00: Injection, [place] 00 IV, Once, first dose 12/30/15 17:00:00 [employer], stop date 12/30/15 17:00:00 [employer] fentaNYL 2015-0 No Perico 25 mcg = Mem oria 3-10 Wheat 0.5 mL, l 23:00: Injection, Denis 00 IV, Once, first dose 12/30/15 17:00:00 [employer], stop date 12/30/15 17:00:00 [employer] C[employer] fentaNYL 2015-0 No Perico 25 mcg = Mem oria 3-10 Wheat 0.5 mL, l 23:00: Injection, Denis 00 IV, Once, first dose 12/30/15 17:00:00 [employer], stop date 12/30/15 17:00:00 [employer] fentaNYL 2016-0 No Perico 25 mcg = Mem oria 3-10 Wheat 0.5 mL, l 22:48: Injection, [place] 00 IV, Once, first dose 12/30/15 16:48:00 [employer], stop date 12/30/15 16:48:00 [employer] fentaNYL 2016-0 No Perico 25 mcg = Mem oria 3-10 Wheat 0.5 mL, l 22:48: Injection, [place] 00 IV, Once, first dose 12/30/15 16:48:00 [employer] C[employer], stop date 12/30/15 16:48:00 TER[employer] C[employer] fentaNYL 2015-0 No Perico 25 mcg = Mem oria 3-10 Wheat 0.5 mL, l 22:48: Injection, [place] 00 IV, Once, first dose 12/30/15 16:48:00 [employer] C[employer], stop date 12/30/15 16:48:00 TER[employer] fentaNYL 2015-0 No Perico 25 mcg = Mem oria 3-10 Wheat 0.5 mL, l 22:48: Injection, Denis 00 IV, Once, first dose 12/30/15 16:48:00 [employer] C[employer], stop date 12/30/15 16:48:00 TER[employer] C[employer] fentaNYL 2015-0 No Perico 25 mcg = Mem oria 3-10 Wheat 0.5 mL, l 22:48: Injection, [place] 00 IV, Once, first dose 12/30/15 16:48:00 [employer] C[employer], stop date 12/30/15 16:48:00 TERRA C[employer] fentaNYL 2015-0 No Perico 25 mcg = Mem oria 3-10 Wheat 0.5 mL, l 22:37: Injection, Denis 00 IV, Once, first dose 12/30/15 16:37:00 [employer] C[employer], stop date 12/30/15 16:37:00 TER[employer] C[employer] fentaNYL 2015-0 No Perico 25 mcg = Mem oria 3-10 Wheat 0.5 mL, l 22:37: Injection, [place] 00 IV, Once, first dose 12/30/15 16:37:00 [employer] C[employer], stop date 12/30/15 16:37:00 TERRA C[employer] fentaNYL 2015-0 No Perico 25 mcg = Mem oria 3-10 Wheat 0.5 mL, l 22:37: Injection, Denis 00 IV, Once, first dose 12/30/15 16:37:00 [employer] C[employer], stop date 12/30/15 16:37:00 TERRA C[employer] fentaNYL 2015-0 No Perico 25 mcg = Mem oria 3-10 Wheat 0.5 mL, l 22:37: Injection, [place] 00 IV, Once, first dose 12/30/15 16:37:00 TER[employer] C[employer], stop date 12/30/15 16:37:00 TER[employer] C[employer] fentaNYL 2015-0 No Perico 25 mcg = Mem oria 3-10 Wheat 0.5 mL, l 22:37: Injection, Denis 00 IV, Once, first dose 12/30/15 16:37:00 [employer] C[employer], stop date 12/30/15 16:37:00 [employer] dexamethaso 2015-0 No Perico 8 mg = 2 Memoria ne 3-10 Wheat mL, l 22:23: Injection, [place] 00 IV, Once, first dose 12/30/15 16:23:00 [employer] C[employer], stop date 12/30/15 16:23:00 [employer] dexamethaso 2015-0 No Perico 8 mg = 2 Memoria ne 3-10 Wheat mL, l 22:23: Injection, Denis 00 IV, Once, first dose 12/30/15 16:23:00 TER[employer] C[employer], stop date 12/30/15 16:23:00 [employer] dexamethaso 2016-0 No Perico 8 mg = 2 Memoria ne 3-10 Wheat mL, l 22:23: Injection, [place] 00 IV, Once, first dose 12/30/15 16:23:00 TER[employer] C[employer], stop date 12/30/15 16:23:00 [employer] dexamethaso 2015-0 No Perico 8 mg = 2 Memoria ne 3-10 Wheat mL, l 22:23: Injection, [place] 00 IV, Once, first dose 12/30/15 16:23:00 [employer] C[employer], stop date 12/30/15 16:23:00 [employer] dexamethaso 2015-0 No Perico 8 mg = 2 Memoria ne 3-10 Wheat mL, l 22:23: Injection, Denis 00 IV, Once, first dose 12/30/15 16:23:00 [employer] C[employer], stop date 12/30/15 16:23:00 [employer] [facility] [place] 0 No Perico 1,000 mL, Memori a Medication 3-10 Wheat Soln-IV, l 22:21: IV, Once, first dose 12/30/15 16:21:00 [employer] C[employer], stop date 12/30/15 16:21:00 [employer] [facility] 2015-0 No Perico 1,000 mL, Memori a Medication 3-10 Wheat Soln-IV, l 22:21: IV, Once, first dose 12/30/15 16:21:00 [employer] C[employer], stop date 12/30/15 16:21:00 [employer] [facility] 2015-0 No Perico 1,000 mL, Memori a Medication 3-10 Wheat Soln-IV, l 22:21: IV, Once, first dose 12/30/15 16:21:00 TER[employer] C[employer], stop date 12/30/15 16:21:00 [employer] [facility] 2015-0 No Perico 1,000 mL, Memori a Medication 3-10 Wheat Soln-IV, l 22:21: IV, Once, first dose 12/30/15 16:21:00 [employer] C[employer], stop date 12/30/15 16:21:00 [employer] Misc 2015-0 No Perico 1,000 mL, Memori a Medication 3-10 Wheat Soln-IV, l 22:21: IV, Once, [place] 00 first dose 12/30/15 16:21:00 [employer], stop date 12/30/15 16:21:00 [employer] clindamycin 0 Yes Perico 928.125 M emoria 3-10 Wheat mg, l 22:18: Soln-IV, [place] 00 IV, Once, first dose 12/30/15 16:18:00 [employer], stop date 12/30/15 16:18:00 [employer] clindamycin 0 Yes Perico 928.125 M emoria 3-10 [place] mg, l 22:18: Soln-IV, [place] 00 IV, Once, first dose 12/30/15 16:18:00 [employer] C[employer], stop date 12/30/15 16:18:00 [employer] C[employer] clindamycin Yes Perico 928.125 M emoria 3-10 [place] mg, l 22:18: Soln-IV, Denis 00 IV, Once, first dose 12/30/15 16:18:00 [employer] C[employer], stop date 12/30/15 16:18:00 [employer] clindamycin 0 Yes Perico 928.125 M emoria 3-10 [place] mg, l 22:18: Soln-IV, [place] 00 IV, Once, first dose 12/30/15 16:18:00 [employer] C[employer], stop date 12/30/15 16:18:00 [employer] clindamycin 0 Yes Perico 928.125 M emoria 3-10 [place] mg, l 22:18: Soln-IV, Denis 00 IV, Once, first dose 12/30/15 16:18:00 [employer] C[employer], stop date 12/30/15 16:18:00 [employer] C[employer] fentaNYL No Perico 25 mcg = Mem oria 3-10 Wheat 0.5 mL, l 22:05: Injection, Denis 00 IV, Once, first dose 12/30/15 16:05:00 [employer] C[employer], stop date 12/30/15 16:05:00 [employer] midazolam 2015-0 No Perico 0.5 mg = Me moria 3-10 Wheat 0.5 mL, l 22:05: Injection, [place] 00 IV, Once, first dose 12/30/15 16:05:00 [employer] C[employer], stop date 12/30/15 16:05:00 [employer] fentaNYL 2016-0 No Perico 25 mcg = Mem oria 3-10 Wheat 0.5 mL, l 22:05: Injection, Denis 00 IV, Once, first dose 12/30/15 16:05:00 [employer] C[employer], stop date 12/30/15 16:05:00 [employer] midazolam 2015-0 No Perico 0.5 mg = Me moria 3-10 Wheat 0.5 mL, l 22:05: Injection, [place] 00 IV, Once, first dose 12/30/15 16:05:00 [employer] C[employer], stop date 12/30/15 16:05:00 [employer] C[employer] fentaNYL 2015-0 No Perico 25 mcg = Mem oria 3-10 Wheat 0.5 mL, l 22:05: Injection, Denis 00 IV, Once, first dose 12/30/15 16:05:00 [employer] C[employer], stop date 12/30/15 16:05:00 [employer] midazolam 2015-0 No Perico 0.5 mg = Me moria 3-10 Wheat 0.5 mL, l 22:05: Injection, Denis 00 IV, Once, first dose 12/30/15 16:05:00 [employer] C[employer], stop date 12/30/15 16:05:00 [employer] C[employer] fentaNYL 2016-0 No Perico 25 mcg = Mem oria 3-10 Wheat 0.5 mL, l 22:05: Injection, Denis 00 IV, Once, first dose 12/30/15 16:05:00 [employer], stop date 12/30/15 16:05:00 [employer] midazolam 2015-0 No Perico 0.5 mg = Me moria 3-10 Wheat 0.5 mL, l 22:05: Injection, Denis 00 IV, Once, first dose 12/30/15 16:05:00 [employer], stop date 12/30/15 16:05:00 [employer] fentaNYL 2016-0 No Perico 25 mcg = Mem oria 3-10 Wheat 0.5 mL, l 22:05: Injection, Denis 00 IV, Once, first dose 12/30/15 16:05:00 [employer], stop date 12/30/15 16:05:00 [employer] midazolam 2016-0 No Perico 0.5 mg = Me moria 3-10 Wheat 0.5 mL, l 22:05: Injection, Denis 00 IV, Once, first dose 12/30/15 16:05:00 [employer], stop date 12/30/15 16:05:00 [employer] lidocaine No Perico 3 mL, Memor ia 3-10 Wheat Injection, l 21:58: IV, Once, [place] 00 first dose 12/30/15 15:58:00 [employer], stop date 12/30/15 15:58:00 [employer] propofol No Perico 120 mg = Mem oria 3-10 Wheat 12 mL, l 21:58: Emulsion, [place] 00 IV, Once, first dose 12/30/15 15:58:00 [employer], stop date 12/30/15 15:58:00 [employer] lidocaine No Perico 3 mL, Memor ia 3-10 Wheat Injection, l 21:58: IV, Once, [place] 00 first dose 12/30/15 15:58:00 [employer], stop date 12/30/15 15:58:00 [employer] propofol No Perico 120 mg = Mem oria 3-10 Wheat 12 mL, l 21:58: Emulsion, [place] 00 IV, Once, first dose 12/30/15 15:58:00 [employer], stop date 12/30/15 15:58:00 [employer] lidocaine No Perico 3 mL, Memor ia 3-10 Wheat Injection, l 21:58: IV, Once, [place] 00 first dose 12/30/15 15:58:00 [employer], stop date 12/30/15 15:58:00 [employer] propofol No Perico 120 mg = Mem oria 3-10 Wheat 12 mL, l 21:58: Emulsion, [place] 00 IV, Once, first dose 12/30/15 15:58:00 [employer], stop date 12/30/15 15:58:00 [employer] lidocaine No Perico 3 mL, Memor ia 3-10 Wheat Injection, l 21:58: IV, Once, [place] 00 first dose 12/30/15 15:58:00 [employer], stop date 12/30/15 15:58:00 [employer] propofol No Perico 120 mg = Mem oria 3-10 Wheat 12 mL, l 21:58: Emulsion, Denis 00 IV, Once, first dose 12/30/15 15:58:00 [employer], stop date 12/30/15 15:58:00 [employer] lidocaine No Perico 3 mL, Memor ia 3-10 Wheat Injection, l 21:58: IV, Once, [place] 00 first dose 12/30/15 15:58:00 [employer], stop date 12/30/15 15:58:00 [employer] propofol No Perico 120 mg = Mem oria 3-10 Wheat 12 mL, l 21:58: Emulsion, [place] 00 IV, Once, first dose 12/30/15 15:58:00 [employer], stop date 12/30/15 15:58:00 [employer] midazolam No Perico 0.5 mg = Me moria 3-10 Wheat 0.5 mL, l 21:50: Injection, Denis 00 IV, Once, first dose 12/30/15 15:50:00 [employer], stop date 12/30/15 15:50:00 [employer] fentaNYL No Perico 25 mcg = Mem oria 3-10 Wheat 0.5 mL, l 21:50: Injection, Denis 00 IV, Once, first dose 12/30/15 15:50:00 [employer], stop date 12/30/15 15:50:00 [employer] midazolam No Perico 0.5 mg = Me moria 3-10 Wheat 0.5 mL, l 21:50: Injection, Denis 00 IV, Once, first dose 12/30/15 15:50:00 TER[employer] COT[employer]FER, stop date 12/30/15 15:50:00 TER[employer] C[employer]FER fentaNYL No Perico 25 mcg = Mem oria 3-10 Wheat 0.5 mL, l 21:50: Injection, [place] 00 IV, Once, first dose 12/30/15 15:50:00 TER[employer] COT[employer] ROOFER, stop date 12/30/15 15:50:00 TER[employer] C[employer] ROOFER midazolam No Perico 0.5 mg = Me moria 3-10 Wheat 0.5 mL, l 21:50: Injection, Denis 00 IV, Once, first dose 12/30/15 15:50:00 TERRA COTTA ROOFER, stop date 12/30/15 15:50:00 TERRA COT[employer] ROOFER fentaNYL No Perico 25 mcg = Mem oria 3-10 Wheat 0.5 mL, l 21:50: Injection, [place] 00 IV, Once, first dose 12/30/15 15:50:00 TERRA COTTA ROOFER, stop date 12/30/15 15:50:00 TER[employer] C[employer] R[employer]FER midazolam 2015- No Perico 0.5 mg = Me moria 3-10 Wheat 0.5 mL, l 21:50: Injection, Denis 00 IV, Once, first dose 12/30/15 15:50:00 TERRA COTTA ROOFER, stop date 12/30/15 15:50:00 TERRA COT[employer] ROOFER fentaNYL No Perico 25 mcg = Mem oria 3-10 Wheat 0.5 mL, l 21:50: Injection, [place] 00 IV, Once, first dose 12/30/15 15:50:00 TERRA COTTA ROOFER, stop date 12/30/15 15:50:00 TERRA COT[employer] ROOFER midazolam 2015- No Perico 0.5 mg = Me moria 3-10 Wheat 0.5 mL, l 21:50: Injection, Denis 00 IV, Once, first dose 12/30/15 15:50:00 TERRA COTTA ROOFER, stop date 12/30/15 15:50:00 TERRA COT[employer] ROOFER fentaNYL 2015- No Perico 25 mcg = Mem oria 3-10 Wheat 0.5 mL, l 21:50: Injection, [place] 00 IV, Once, first dose 12/30/15 15:50:00 TERRA COTTA ROOFER, stop date 12/30/15 15:50:00 TERRA COT[employer] ROOFER midazolam No Perico 0.5 mg = Me moria 3-10 Wheat 0.5 mL, l 21:10: Injection, Denis 00 IV, Once, first dose 12/30/15 15:10:00 TERRA COTTA ROOFER, stop date 12/30/15 15:10:00 TERRA COTTA ROOFER fentaNYL No Perico 25 mcg = Mem oria 3-10 Wheat 0.5 mL, l 21:10: Injection, Denis 00 IV, Once, first dose 12/30/15 15:10:00 TERRA COTTA ROOFER, stop date 12/30/15 15:10:00 TERRA COTTA ROOFER midazolam No Perico 0.5 mg = Me moria 3-10 Wheat 0.5 mL, l 21:10: Injection, [place] 00 IV, Once, first dose 12/30/15 15:10:00 TERRA COTTA ROOFER, stop date 12/30/15 15:10:00 TERRA COTTA ROOFER fentaNYL 2016-0 No Perico 25 mcg = Mem oria 3-10 Wheat 0.5 mL, l 21:10: Injection, [place] 00 IV, Once, first dose 12/30/15 15:10:00 TERRA COTTA ROOFER, stop date 12/30/15 15:10:00 TERRA COTTA ROOFER midazolam 2016-0 No Perico 0.5 mg = Me moria 3-10 Wheat 0.5 mL, l 21:10: Injection, [place] 00 IV, Once, first dose 12/30/15 15:10:00 TERRA COTTA ROOFER, stop date 12/30/15 15:10:00 TERRA COTTA ROOFER fentaNYL 2016-0 No Perico 25 mcg = Mem oria 3-10 Wheat 0.5 mL, l 21:10: Injection, Denis 00 IV, Once, first dose 12/30/15 15:10:00 TERRA COTTA ROOFER, stop date 12/30/15 15:10:00 TERRA COT[employer] ROOFER midazolam 2016-0 No Perico 0.5 mg = Me moria 3-10 Wheat 0.5 mL, l 21:10: Injection, Denis 00 IV, Once, first dose 12/30/15 15:10:00 TERRA COTTA ROOFER, stop date 12/30/15 15:10:00 TERRA COTTA ROOFER fentaNYL 2016-0 No Perico 25 mcg = Mem oria 3-10 Wheat 0.5 mL, l 21:10: Injection, Denis 00 IV, Once, first dose 12/30/15 15:10:00 TERRA COTTA ROOFER, stop date 12/30/15 15:10:00 TERRA COTTA ROOFER midazolam 2016-0 No Perico 0.5 mg = Me moria 3-10 Wheat 0.5 mL, l 21:10: Injection, Denis 00 IV, Once, first dose 12/30/15 15:10:00 TERRA COTTA ROOFER, stop date 12/30/15 15:10:00 TERRA COTTA ROOFER fentaNYL 2016-0 No Perico 25 mcg = Mem oria 3-10 Wheat 0.5 mL, l 21:10: Injection, Denis 00 IV, Once, first dose 12/30/15 15:10:00 TERRA COTTA ROOFER, stop date 12/30/15 15:10:00 TERRA COTTA ROOFER fentaNYL 2016-0 No Perico 25 mcg = Mem oria 3-10 Wheat 0.5 mL, l 21:05: Injection, Denis 00 IV, Once, first dose 12/30/15 15:05:00 TERRA COTTA ROOFER, stop date 12/30/15 15:05:00 TERRA COTTA ROOFER midazolam 2016-0 No Perico 0.5 mg = Me moria 3-10 Wheat 0.5 mL, l 21:05: Injection, Denis 00 IV, Once, first dose 12/30/15 15:05:00 TERRA COTTA ROOFER, stop date 12/30/15 15:05:00 TERRA COTTA ROOFER fentaNYL 2016-0 No Perico 25 mcg = Mem oria 3-10 Wheat 0.5 mL, l 21:05: Injection, Denis 00 IV, Once, first dose 12/30/15 15:05:00 TERRA COTTA ROOFER, stop date 12/30/15 15:05:00 TERRA COTTA ROOFER midazolam 2016-0 No Perico 0.5 mg = Me moria 3-10 Wheat 0.5 mL, l 21:05: Injection, [place] 00 IV, Once, first dose 12/30/15 15:05:00 TERRA COTTA ROOFER, stop date 12/30/15 15:05:00 TERRA COTTA ROOFER fentaNYL 2016-0 No Perico 25 mcg = Mem oria 3-10 Wheat 0.5 mL, l 21:05: Injection, Denis 00 IV, Once, first dose 12/30/15 15:05:00 TERRA COTTA ROOFER, stop date 12/30/15 15:05:00 TERRA COTTA ROOFER midazolam 2015-0 No Perico 0.5 mg = Me moria 3-10 Wheat 0.5 mL, l 21:05: Injection, [place] 00 IV, Once, first dose 12/30/15 15:05:00 TERRA COTTA ROOFER, stop date 12/30/15 15:05:00 TERRA COTTA ROOFER fentaNYL 2015-0 No Perico 25 mcg = Mem oria 3-10 Wheat 0.5 mL, l 21:05: Injection, [place] 00 IV, Once, first dose 12/30/15 15:05:00 TERRA COTTA ROOFER, stop date 12/30/15 15:05:00 TERRA COTTA ROOFER midazolam 2015-0 No Perico 0.5 mg = Me moria 3-10 Wheat 0.5 mL, l 21:05: Injection, [place] 00 IV, Once, first dose 12/30/15 15:05:00 TERRA COTTA ROOFER, stop date 12/30/15 15:05:00 TERRA COTTA ROOFER fentaNYL 2015-0 No Perico 25 mcg = Mem oria 3-10 Wheat 0.5 mL, l 21:05: Injection, Denis 00 IV, Once, first dose 12/30/15 15:05:00 TERRA COTTA ROOFER, stop date 12/30/15 15:05:00 TERRA COTTA ROOFER midazolam No Perico 0.5 mg = Me moria 3-10 Wheat 0.5 mL, l 21:05: Injection, Denis 00 IV, Once, first dose 12/30/15 15:05:00 TERRA COTTA ROOFER, stop date 12/30/15 15:05:00 TERRA COTTA ROOFER clindamycin No Jose [place] 900 mg, IV Memoria 3-10 Johnson Piggyback, l 20:00: Once, Denis 00 infuse over 30 minutes, first dose 12/30/15 14:00:00 TERRA COTTA ROOFER, stop date 12/30/15 14:00:00 TERRA COTTA ROOFER, Prophylaxi s clindamycin No Jose Francisco 900 mg, IV Memoria 3-10 Johnson Piggyback, l 20:00: Once, [place] 00 infuse over 30 minutes, first dose 12/30/15 14:00:00 TERRA COTTA ROOFER, stop date 12/30/15 14:00:00 TERRA COTTA ROOFER, Prophylaxi s clindamycin No Jose [place] 900 mg, IV Memoria 3-10 Johnson Piggyback, l 20:00: Once, Denis 00 infuse over 30 minutes, first dose 12/30/15 14:00:00 TERRA COTTA ROOFER, stop date 12/30/15 14:00:00 TERRA COTTA ROOFER, Prophylaxi s clindamycin No Jose [place] 900 mg, IV Memoria 3-10 Johnson Piggyback, l 20:00: Once, [place] 00 infuse over 30 minutes, first dose 12/30/15 14:00:00 TERRA COTTA ROOFER, stop date 12/30/15 14:00:00 TERRA COTTA ROOFER, Prophylaxi s clindamycin No Jose Francisco 900 mg, IV Memoria 3-10 Johnson Piggyback, l 20:00: Once, Denis 00 infuse over 30 minutes, first dose 12/30/15 14:00:00 TERRA COTTA ROOFER, stop date 12/30/15 14:00:00 TERRA COTTA ROOFER, Prophylaxi s LR 1,000 mL No Kyle K 1,000 mL, Memoria 3-10 Silvestre IV, 30 l 19:27: mL/hr, Denis start date 12/30/15 13:27:00 TERRA COTTA ROOFER Lidocaine No Kyle K 0.2 mL, Mem oria 2% 0.2 mL 3-10 Silvestre Injection, l IV Start 19:27: Subcutaneo [facility] hunt [[facility] 00 us, Once PRN for other (see comment), first dose 12/30/15 13:27:00 TERRA COTTA ROOFER LR 1,000 mL No Kyle K 1,000 mL, Memoria 3-10 Silvestre IV, 30 l 19:27: mL/hr, Denis start date 12/30/15 13:27:00 TERRA COTTA ROOFER Lidocaine No Kyle K 0.2 mL, Mem oria 2% 0.2 mL 3-10 Silvestre Injection, l IV Start 19:27: Subcutaneo [facility] [[facility]] 00 us, Once PRN for other (see comment), first dose 12/30/15 13:27:00 TERRA COTTA ROOFER LR 1,000 mL No Kyle K 1,000 mL, Memoria 3-10 Silvestre IV, 30 l 19:27: mL/hr, Denis start date 12/30/15 13:27:00 TERRA COTTA ROOFER Lidocaine No Kyle K 0.2 mL, Mem oria 2% 0.2 mL 3-10 Silvestre Injection, l IV Start 19:27: Subcutaneo [facility] [[facility]] 00 us, Once PRN for other (see comment), first dose 12/30/15 13:27:00 TERRA COTTA ROOFER LR 1,000 mL No Kyle K 1,000 mL, Memoria 3-10 Silvestre IV, 30 l 19:27: mL/hr, [place] start date 12/30/15 13:27:00 TERRA COTTA ROOFER Lidocaine No Kyle K 0.2 mL, Mem oria 2% 0.2 mL 3-10 Silvestre Injection, l IV Start 19:27: Subcutaneo [facility] hunt [[place]] 00 us, Once PRN for other (see comment), first dose 12/30/15 13:27:00 TERRA COTTA ROOFER LR 1,000 mL No Kyle K 1,000 mL, Memoria 3-10 Silvestre IV, 30 l 19:27: mL/hr, Denis start date 12/30/15 13:27:00 TERRA COTTA ROOFER Lidocaine No Kyle K 0.2 mL, Mem oria 2% 0.2 mL 12-29 Silvestre Injection, l IV Start 19:27: Subcutaneo [facility] [[facility]] 00 us, Once PRN for other (see comment), first dose 12/30/15 13:27:00 TERRA COTTA ROOFER Seroquel Yes 100 mg, Memori a 12-28 Oral, l 14:40: Daily, 0 Denis 00 [...] Bi-Flex 3 Daily, 0 l 14:40: Refill(s), Denis 00 supplement Nature's Yes 1,000 mg = Mem oria Bounty Red 12-28 2 caps, l Krill Oil 14:40: Oral, BID, He rmann 500 mg oral 00 0 capsule Refill(s), supplement aspirin 81 Yes 81 mg = 1 Me moria mg oral 12-28 tabs, l tablet 14:40: Oral, [place] 00 Daily, 0 Refill(s), supplement Axert 12.5 [...] a 3-09 Oral, l 14:40: Daily, 0 [place] 00 Refill(s), migraines acetaminoph Yes 1 tabs, Mem oria en-HYDROcod 3-09 Oral, l one 325 14:40: q6hr, 0 Denis mg-5 mg 00 Refill(s), oral tablet pain traMADol 50 Yes 50 mg = 1 M emoria mg oral 3-09 tabs, l tablet 14:40: Oral, [place] 00 q4hr, 0 Refill(s), pain amLODIPine- Yes 1 tabs, Mem oria atorvastati 3- Oral, qHS, l n 5 mg-40 14:40: 0 Denis mg oral 00 Refill(s), tablet cholestero l/hyperten will Osteo Yes Oral, Memoria Bi-Flex 3- Daily, 0 l 14:40: Refill(s), [place] 00 supplement Nature's Yes 1,000 mg = [...] 12-28 1 tabs, l tablet 14:40: Oral, [place] 00 Once, PRN for migraine headache, may repeat dose once in 2 hours, # 6 tabs, 0 Refill(s), migrainesm ay repeat dose once in 2 hours Wellbutrin Yes 300 mg, Turner arnoldo XL 3-09 Oral, l 14:40: q24hr, 0 [place] 00 Refill(s), migraines Seroquel Yes 100 mg, [...] Bi-Flex 3-09 Daily, 0 l 14:40: Refill(s), [place] 00 supplement Nature's Yes 1,000 mg = Mem oria Bounty Red 12-28 2 caps, l Krill Oil 14:40: Oral, BID, He rmann 500 mg oral 00 0 capsule Refill(s), supplement aspirin 81 Yes 81 mg = 1 Me moria mg oral 12-28 tabs, l tablet 14:40: Oral, [place] 00 Daily, 0 Refill(s), supplement Axert 12.5 Yes 12.5 mg = Me moria mg oral 12-28 1 tabs, l tablet 14:40: Oral, [place] 00 Once, PRN for migraine headache, may repeat dose once in 2 hours, # 6 tabs, 0 Refill(s), migrainesm ay repeat dose once in 2 hours Wellbutrin Yes 300 mg, Turner arnoldo XL -09 Oral, l 14:40: q24hr, 0 [place] 00 Refill(s), migraines Seroquel Yes 100 mg, Memori a 3-09 Oral, l 14:40: Daily, 0 [place] 00 Refill(s), migraines acetaminoph Yes 1 tabs, [...] mg oral 00 Refill(s), tablet cholestero l/hyperten iwll Osteo 2015- Yes Oral, Memoria Bi-Flex 3-09 Daily, 0 l 14:40: Refill(s), [place] 00 supplement Nature's Yes 1,000 mg = Mem oria Bounty Red 12-28 2 caps, l Krill Oil 14:40: Oral, BID, He rmann 500 mg oral 00 0 capsule Refill(s), supplement aspirin 81 Yes 81 mg = 1 Me moria mg oral 12-28 tabs, l tablet 14:40: Oral, [place] 00 Daily, 0 Refill(s), supplement Axert 12.5 Yes 12.5 mg = Me moria mg oral 12-28 1 tabs, l tablet 14:40: Oral, Denis 00 Once, PRN for migraine headache, may repeat dose once in 2 hours, # 6 tabs, 0 Refill(s), migrainesm ay repeat dose once in 2 hours Wellbutrin Yes 300 mg, Turner arnoldo XL - Oral, l 14:40: q24hr, 0 [place] 00 Refill(s), migraines Seroquel Yes 100 mg, Memori a - Oral, l 14:40: Daily, 0 [place] 00 Refill(s), migraines acetaminoph Yes 1 tabs, Mem oria en-HYDROcod -09 Oral, l one 325 14:40: q6hr, 0 [place] mg-5 mg 00 Refill(s), oral tablet pain traMADol 50 Yes 50 mg = 1 M emoria mg oral -09 tabs, l tablet 14:40: Oral, [place] 00 q4hr, 0 Refill(s), pain amLODIPine- Yes 1 tabs, Mem oria atorvastati -09 Oral, qHS, l n 5 mg-40 14:40: 0 Denis mg oral 00 Refill(s), tablet cholestero l/hyperten will Osteo Yes Oral, Memoria Bi-Flex 12-28 Daily, 0 l 14:40: Refill(s), Denis 00 supplement Nature's Yes 1,000 mg = Mem oria Bounty Red 12-28 2 caps, l Krill Oil 14:40: Oral, BID, He rmann 500 mg oral 00 0 capsule Refill(s), supplement aspirin 81 Yes 81 mg = 1 Me moria mg oral 12-28 tabs, l tablet 14:40: Oral, [place] 00 Daily, 0 Refill(s), supplement Axert 12.5 Yes 12.5 mg = Me moria mg oral 12-28 1 tabs, l tablet 14:40: Oral, Denis 00 Once, PRN for migraine headache, may repeat dose once in 2 hours, # 6 tabs, 0 Refill(s), migrainesm ay repeat dose once in 2 hours Wellbutrin Yes 300 mg, Turner arnoldo XL 12-28 Oral, l 14:40: q24hr, 0 [place] 00 Refill(s), migraines Immunizations Ordered Immunization Filled Immunization Date Status Commen ts Source Name Name FLUCELVAX QUAD 2022-06-[address] 00:00:00 [facility] Bebtelovima 2022-04-16 Completed [facility]00 [facility] FLUCELVAX QUAD 2021-07-[address] 00:00:00 [facility] FLUCELVAX QUAD 2020-09-[address] 00:00:00 [facility] Hx influenza 2019-08-13 Completed [facility] vaccine-unspecified< 00:00:00 sup>1</sup> Hx influenza 2019-08-13 Completed [facility] vaccine-unspecified< 00:00:00 sup>1</sup> Hx influenza 2019-08-13 Completed [facility] vaccine-unspecified< 00:00:00 sup>1</sup> Hx influenza 2019-08-13 Completed [facility] vaccine-unspecified< 00:00:00 sup>1</sup> FLUCELVAX QUAD 2019-08-[address] [facility] Hx influenza 2019-08-13 Completed [facility] vaccine-unspecified< 00:00:00 sup>1</sup> Tdap 2019-06-28 Completed [facility] pneumococcal 2019-05-14 Completed [facility] hnut 23-valent 00:00:00 vaccine<sup>3</sup> pneumococcal 2019-05-14 Completed [facility] [...] Name Observation Time Observation Value Comments Source WEIGHT 2022-09-25 11:28:00 98.2 kg WEIGHT 2022-09-25 07:30:00 101 kg HEIGHT 2022-09-23 16:00:00 170.2 cm WEIGHT 2022-09-23 16:00:00 98.9 kg WEIGHT 2022-09-25 11:28:00 98.2 kg WEIGHT 2022-09-25 07:30:00 101 kg HEIGHT 2022-09-23 16:00:00 170.2 cm WEIGHT 2022-09-23 16:00:00 98.9 kg WEIGHT 2022-09-25 11:28:00 98.2 kg WEIGHT 2022-09-25 07:30:00 101 kg HEIGHT 2022-09-23 16:00:00 170.2 cm WEIGHT 2022-09-23 16:00:00 98.9 kg Systolic blood 2022-09-27 08:05:00 133 mm[Hg] [facility] Diastolic blood 2022-09-27 08:05:00 87 mm[Hg] [facility] Heart rate 2022-09-27 08:05:00 104 /min [facility] Body temperature 2022-09-27 08:05:00 35.56 Linda [facility] Respiratory rate 2022-09-27 08:05:00 20 /min [facility] Oxygen saturation in 2022-09-27 08:05:00 98 /min [facility] Arterial blood by Medical Ce nter Pulse oximetry Body weight 2022-09-25 11:28:00 98.2 kg [facility] BMI 2022-09-25 11:28:00 33.91 kg/m2 [facility] Body height 2022-09-23 16:00:00 170.2 cm [facility] Systolic blood 2022-08-27 21:24:34 114 mm[Hg] Method [facility] pressure Diastolic blood 2022-08-27 21:24:34 57 mm[facility]Hg[facility] pressure Heart rate 2022-08-27 21:24:34 87 [facility] 2022-08-27 21:24:34 36.61 Linda [facility] Respiratory rate 2022-08-27 21:24:34 18 /min [facility] Oxygen saturation in 2022-08-27 21:24:34 100 /min [facility] Arterial blood by Pulse oximetry Body height 2022-08-27 05:00:00 170.2 cm [facility] Body weight 2022-08-27 05:00:00 107.2 kg [facility] BMI 2022-08-27 05:00:00 37.02 kg/m2 [facility] Temperature Oral (F) 2022-04-19 19:52:00 97.6 F [facility] [place] Height 2022-04-19 19:52:00 170.18 cm [facility] [place] Weight 2022-04-19 19:52:00 [facility] BMI Calculated 2022-04-19 19:52:00 [facility] [place] Heart Rate 2021-10-17 21:23:00 [facility] [place] Systolic (mm Hg) 2021-10-17 21:23:00 Turner rial [place] Diastolic (mm Hg) 2021-10-17 21:23:00 Mem orial Denis Height 2021-10-17 21:23:00 165.1 cm [facility] [place] Weight 2021-10-17 21:23:00 [facility] [place] BMI Calculated 2021-10-17 21:23:00 Memori al Denis Heart Rate 2021-09-09 20:12:00 [facility] [place] Heart Rate 2021-09-09 20:08:00 [facility] Systolic (mm Hg) 2021-09-09 20:08:00 Turner rial Denis Diastolic (mm Hg) 2021-09-09 20:08:00 Mem orial [place] Height 2021-09-09 20:08:00 165.1 cm [facility] Weight 2021-09-09 20:08:00 [facility] [place] BMI Calculated 2021-09-09 20:08:00 [facility] [place] Systolic (mm Hg) 2020-09-15 15:59:00 Turner rial Denis Diastolic (mm Hg) 2020-09-15 15:59:00 Mem orial [place] Heart Rate 2020-09-15 15:59:00 [facility] Height 2020-09-15 15:59:00 165.1 cm [facility] [place] Weight 2020-09-15 15:59:00 [facility] [place] BMI Calculated 2020-09-15 15:59:00 Memori al [place] Systolic (mm Hg) 2019-12-16 20:42:00 Turner rial [place] Diastolic (mm Hg) 2019-12-16 20:42:00 Mem o[facility] [place] Heart Rate 2019-12-16 20:42:00 [facility] [place] Temperature Oral (F) 2019-12-16 20:42:00 98.2 F [facility] Height 2019-12-16 20:42:00 170.18 cm [facility] [place] Weight 2019-12-16 20:42:00 [facility] BMI Calculated 2019-12-16 20:42:00 [facility] [place] Systolic (mm Hg) 2019-10-02 21:53:00 Turner rial Denis Diastolic (mm Hg) 2019-10-02 21:53:00 Mem orial [place] Heart Rate 2019-10-02 21:53:00 [facility] [place] Temperature Oral (F) 2019-10-02 21:53:00 97.9 F [facility] [place] Height 2019-10-02 21:53:00 165.1 cm [facility] [place] Weight 2019-10-02 21:53:00 [facility] BMI Calculated 2019-10-02 21:53:00 Memori al [place] Height 2019-08-15 14:54:00 165.1 cm [facility] [place] Weight 2019-08-15 14:54:00 [facility] BMI Calculated 2019-08-15 14:54:00 Memori al [place] Systolic (mm Hg) 2019-08-15 14:54:00 Turner rial Denis Diastolic (mm Hg) 2019-08-15 14:54:00 Mem orial [place] Heart Rate 2019-08-15 14:54:00 [facility] Temperature Oral (F) 2019-08-15 14:54:00 97.6 F [facility] Systolic (mm Hg) 2019-07-31 15:37:00 Turner rial [place] Diastolic (mm Hg) 2019-07-31 15:37:00 Mem orial Denis Heart Rate 2019-07-31 15:37:00 [facility] Temperature Oral (F) 2019-07-31 15:37:00 98.2 F [facility] [place] Height 2019-07-31 15:37:00 165.1 cm [facility] [place] Weight 2019-07-31 15:37:00 [facility] BMI Calculated 2019-07-31 15:37:00 Memori al [place] Weight 2019-03-27 15:18:00 [facility] [place] BMI Calculated 2019-03-27 15:18:00 [facility] [place] Height 2019-03-27 15:18:00 165.1 cm [facility] [place] Temperature Oral (F) 2019-03-27 15:18:00 98.4 F [facility] [place] Heart Rate 2019-03-27 15:18:00 [facility] [place] Systolic (mm Hg) 2019-03-27 15:18:00 Turner rial [place] Diastolic (mm Hg) 2019-03-27 15:18:00 Mem orial Denis Height 2019-01-02 19:16:00 165.1 cm [facility] BMI Calculated 2019-01-02 19:16:00 Memori al [place] Weight 2019-01-02 19:16:00 [facility] Heart Rate 2019-01-02 19:16:00 [facility] [place] Systolic (mm Hg) 2019-01-02 19:16:00 Turner rial Denis Diastolic (mm Hg) 2019-01-02 19:16:00 Mem orial [place] Height 2019-01-02 14:26:00 167.01 cm [facility] [place] BMI Calculated 2019-01-02 14:26:00 Memori al Denis Weight 2019-01-02 14:26:00 [facility] [place] Heart Rate 2019-01-02 14:26:00 [facility] [place] Temperature Oral (F) 2019-01-02 14:26:00 97.9 F [facility] [place] Systolic (mm Hg) 2019-01-02 14:26:00 Turner rial [place] Diastolic (mm Hg) 2019-01-02 14:26:00 Mem orial [place] Systolic (mm Hg) 2018-07-18 18:33:00 Turner rial [place] Diastolic (mm Hg) 2018-07-18 18:33:00 Mem orial Denis Heart Rate 2018-07-18 18:33:00 [facility] [place] Weight 2018-07-18 18:33:00 [facility] BMI Calculated 2018-06-11 18:31:00 Memori al [place] Weight 2018-06-11 18:31:00 [facility] [place] Systolic (mm Hg) 2018-06-11 18:31:00 Turner rial [place] Diastolic (mm Hg) 2018-06-11 18:31:00 Mem orial [place] Height 2018-06-11 18:31:00 170.18 cm [facility] [place] Temperature Oral (F) 2018-06-11 18:31:00 98.3 F [facility] [place] Heart Rate 2018-06-11 18:31:00 [facility] [place] Weight 2018-01-10 16:14:00 [facility] [place] Height 2018-01-10 16:14:00 170.18 cm [facility] BMI Calculated 2018-01-10 16:14:00 Memori al [place] Heart Rate 2018-01-10 16:14:00 [facility] [place] Systolic (mm Hg) 2018-01-10 16:14:00 Utrner rial [place] Diastolic (mm Hg) 2018-01-10 16:14:00 Mem orial [place] BMI Calculated 2018-01-09 15:06:00 [facility] [place] Height 2018-01-09 15:06:00 170.18 cm [facility] Weight 2018-01-09 15:06:00 [facility] [place] Systolic (mm Hg) 2018-01-09 15:06:00 Turner rial [place] Diastolic (mm Hg) 2018-01-09 15:06:00 Mem orial [place] Heart Rate 2018-01-09 15:06:00 [facility] [place] Temperature Oral (F) 2018-01-09 15:06:00 97.9 F [facility] [place] Weight 2016-11-14 16:17:00 [facility] [place] Height 2016-11-14 16:17:00 170.18 cm [facility] BMI Calculated 2016-11-14 16:17:00 [facility] [place] Respitory Rate 2015-12-31 01:25:00 [facility] [place] Systolic (mm Hg) 2015-12-31 00:50:00 Turner rial Denis Respitory Rate 2015-12-31 00:50:00 [facility] [place] Heart Rate 2015-12-31 00:50:00 [facility] Systolic (mm Hg) 2015-12-31 00:40:00 Turner rial [place] Respitory Rate 2015-12-31 00:40:00 Memori al Denis Heart Rate 2015-12-31 00:40:00 [facility] [place] Heart Rate 2015-12-31 00:30:00 [facility] [place] Systolic (mm Hg) 2015-12-31 00:30:00 Turner rial Denis Temperature Oral (F) 2015-12-30 23:50:00 37.1 Linda [facility] [place] Height 2015-12-30 19:23:00 169 cm [facility] [place] Weight 2015-12-30 19:23:00 [facility] Temperature Oral (F) 2015-12-30 19:23:00 36.6 Linda [facility] [place] Height 2015-12-29 14:13:00 170 cm [facility] [place] Weight 2015-12-29 14:13:00 [facility] Procedures Procedure Date / Time Performing Clinician Source Performed ULTRAFILTRATION HD CRRT 2022-09-26 18:40:00 Vee Coleman [facility] ECG 12-LEAD 2022-09-26 10:57:31 Unknown, H[facility] NM MYOCARDIAL PERFUSION 2022-09-26 10:55:00 Yaritza Reid [facility] PET/CT (REST & STRESS) Medical C enter TREADMILL 2022-09-26 10:49:30 Unknown, 7 [facility] TOLERANCE(NON-NUCLEAR Medical Ce nter TREADMILL) ECG 12-LEAD 2022-09-26 10:49:10 Unknown, [facility] CBC W/PLT COUNT & AUTO 2022-09-26 03:40:00 Tre Pennington [facility] BASIC METABOLIC PANEL 2022-09-26 03:40:00 Tre Pennington [facility] MAGNESIUM 2022-09-26 03:40:00 Tre Pennington [facility] PHOSPHORUS 2022-09-26 03:40:00 Tre Pennington [facility] CBC W/PLT COUNT & AUTO 2022-09-26 03:40:00 Indio Cardozo [facility] HEPATITIS B SURFACE 2022-09-25 08:07:[address] [facility] [place] [place] HEMODIALYSIS INPATIENT 2022-09-25 07:15:26 Ry Prajapati [facility] CBC W/PLT COUNT & AUTO 2022-09-25 04:40:00 Tre Pennington [facility] BASIC METABOLIC PANEL 2022-09-25 04:40:00 Tejal, [facility] MAGNESIUM 2022-09-25 04:40:00 Tejal [facility] PHOSPHORUS 2022-09-25 04:40:00 Tejal [facility] HEPATITIS C ANTIBODY 2022-09-25 04:40:00 Keith Mantilla [facility] PERIPHERAL BLOOD SMEAR - 2022-09-25 04:40:00 Keith Mantilla [facility] PATHOLOGIST REVIEW Medical Cent[facility] r CBC W/PLT COUNT & AUTO 2022-09-25 04:40:00 Indio Cardozo [facility] 2D ECHO W/ DOPPLER 2022-09-24 15:49:57 Indio Cardozo [facility] (CW/PW/COLOR) [facility] CBC W/PLT COUNT & AUTO 2022-09-24 04:30:00 Tejal [facility] BASIC METABOLIC PANEL 2022-09-24 04:30:00 [facility] [facility] MAGNESIUM 2022-09-24 04:30:00 Tejal [facility] PHOSPHORUS 2022-09-24 04:30:00 Tejal [facility] PROTEIN ELECTROPHORESIS, 2022-09-24 04:30:00 Yaritza Reid [facility] CBC W/PLT COUNT & AUTO 2022-09-24 04:30:00 Indio Cardozo [facility] HIGH SENSITIVITY TROPONIN 2022-09-23 18:09:00 Indoi Cardozo [facility] POTASSIUM 2022-09-23 18:09:00 Tejal [facility] XR CHEST 1 VIEW PORTABLE / 2022-09-23 15:31:00 Indio Cardozo [facility] COMPREHENSIVE METABOLIC 2022-09-23 15:15:[address] [facility] MAGNESIUM 2022-09-23 15:15:00 Indio Cardozo [facility] PHOSPHORUS 2022-09-23 15:15:00 Celli [facility] HIGH SENSITIVITY TROPONIN 2022-09-23 15:15:00 CelliIndio [facility] I [facility] B-TYPE NATRIURETIC FACTOR 2022-09-23 15:15:00 CelliIndio [facility] (BNP) [facility] CBC W/PLT COUNT & AUTO 2022-09-23 15:15:00 CelliIndio [facility] DIFFERENTIAL [facility] CBC W/PLT COUNT & AUTO 2022-09-23 15:15:00 CelliIndio [facility] DIFFERENTIAL [facility] TSH 2022-09-23 15:14:00 Celli [facility] ECG 12-LEAD 2022-09-23 14:50:19 Unknown, [facility] ECG 12-LEAD 2022-09-23 14:50:19 Unknown, H[facility]7 [facility] PROTHROMBIN TIME WITH INR 2022-08-27 06:57:00 Cy Sosa [facility] COMPREHENSIVE METABOLIC 2022-08-27 06:57:00 Cy Sosa [facility] PANEL MAGNESIUM LEVEL 2022-08-27 06:57:00 Cy Sosa Ho spital PHOSPHORUS LEVEL 2022-08-27 06:57:00 Cy Sosa H ospital ESTIMATED GFR 2022-08-27 06:57:00 Cy Sosa Ho spital TROPONIN T 2022-08-27 06:57:00 Cy Sosa Ho spital ZZCOVID-19 ANTI-SPIKE IGG 2022-08-27 06:56:00 Cy Sosa [facility] ANTIBODY TITER COVID-19 SEROLOGY PATIENT 2022-08-27 06:56:00 Cy Sosa [facility] SURVEILLANCE HC COMPLETE BLD COUNT 2022-08-27 06:56:00 Cy Sosa [facility] Hospital W/AUTO DIFF COVID-19 QUALITATIVE 2022-08-27 04:58:00 [facility] RT-PCR TROPONIN T 2022-08-27 03:58:00 Cy Sosa spital XR CHEST 1 VW PORTABLE 2022-08-27 01:31:25 [facility] COMPREHENSIVE METABOLIC 2022-08-27 01:20:00 [facility] PANEL LIPASE LEVEL 2022-08-27 01:20:00 [facility] TROPONIN T 2022-08-27 01:20:00 Cy Sosa spital B NATRIURETIC PEPTIDE 2022-08-27 01:20:00 [facility] HC COMPLETE BLD COUNT 2022-08-27 01:20:00 [facility] W/AUTO DIFF ESTIMATED GFR 2022-08-27 01:20:00 [facility] ECG 12-LEAD 2022-08-27 01:03:45 Cy Sosa spital [facility] 2022-08-22 16:47:00 [facility] PANEL Herbert CBC WITH PLATELET AND 2022-08-22 16:47:00 [facility] DIFFERENTIAL Herbert THYROID STIMULATING 2022-08-22 16:47:00 [facility] HORMONE Herbert PARATHYROID HORMONE 2022-08-22 16:47:00 [facility] Herbert VITAMIN D 25 HYDROXY LEVEL 2022-08-22 16:47:00 [facility] Herbert NM BONE SCAN 3 PHASE 2022-07-26 18:11:00 [facility] Herbert BONE DENSITY 2022-07-26 14:02:48 [facility] spital Herbert BONE DENSITY PERIPHERAL 2022-07-26 14:02:48 [facility] Herbert POC GLUCOSE 2022-06-28 04:49:00 Maddison Wharton spital CBC HEMOGRAM 2022-06-27 10:05:00 Keith Lopez spital BASIC METABOLIC PANEL 2022-06-27 10:05:00 John, Keith Porras [facility] ESTIMATED GFR 2022-06-27 10:05:00 Mary Ontiveros Ho spital Herbert XR LUMBAR SPINE 2 OR 3 VW 2022-06-26 21:10:24 John, Keith Cornejo. [facility] XR THORACIC SPINE 2 VW 2022-06-26 21:10:08 John, [facility] XR CHEST 1 VW PORTABLE 2022-06-26 19:05:29 Hannahi rod [facility] BASIC METABOLIC PANEL 2022-06-26 09:08:00 [facility] PHOSPHORUS LEVEL 2022-06-26 09:08:00 [facility] ESTIMATED GFR 2022-06-26 09:08:00 [facility] TTE COMPLETE, WO CONTRAST, 2022-06-25 15:40:58 [facility] W DOPPLER ([id number]) MRI THORACIC SPINE WO 2022-06-25 02:11:31 Mary Ontiveros [facility] CONTRAST Herbert MRI LUMBAR SPINE WO 2022-06-25 01:29:36 Clifton Lantigua [facility] CONTRAST [facility] HEPATITIS B CORE ANTIBODY 2022-06-24 17:34:00 Dina Cuello [facility] TOTAL HEPATITIS B SURFACE AB, 2022-06-24 17:34:00 CuelloDina [facility] QUANTITATIVE HEPATITIS B SURFACE 2022-06-24 17:34:00 [facility] Dinakaris Loera [facility] ANTIGEN COVID-19 QUALITATIVE 2022-06-24 16:35:[address] [facility] RT-PCR [facility] COVID-19 OMICRON VARIANT 2022-06-24 16:35:00 Anne [facility] systems[facility] QUALITATIVE RT-PCR [facility] POC GLUCOSE 2022-06-24 16:35:00 Maddison Wharton Ho spital POC GLUCOSE 2022-06-24 15:09:00 [facility] LUMBAR SPINE WO 2022-06-24 13:41:51 Lantigua [facility] CONTRAST [facility] CT RENAL STONE PROTOCOL 2022-06-24 13:41:38 [facility] HC COMPLETE BLD COUNT 2022-06-24 12:44:00 LantiguaClifton [facility] W/AUTO DIFF [facility] 2022-06-24 12:44:00 [facility] PANEL [facility] ESTIMATED GFR 2022-06-24 12:44:00 [facility] [place] CRITICAL CARE, E/M 2022-06-24 12:28:33 LantiguaClifton [facility] 30-[address] [facility] HEPATITIS B SURFACE 2022-05-20 15:33:[address] [facility] HEPATITIS B SURFACE 2022-05-20 15:33:[address] [facility] ANTIBODY [facility] XR CHEST 1 VW PORTABLE 2022-04-29 13:25:18 Rajwinder Kay [facility] 2022-04-29 10:32:00 Wendie [facility] PANEL HC COMPLETE BLD COUNT 2022-04-29 10:32:00 Amos Pressley [facility] W/AUTO DIFF ESTIMATED GFR 2022-04-29 10:32:00 Amos Pressley [facility] HEMODIALYSIS 2022-04-29 05:06:40 Catalina Teran ospital [place] HEPATITIS B CORE ANTIBODY 2022-04-28 20:59:00 Jeffry [facility] TOTAL [place] HEPATITIS B CORE ANTIBODY 2022-04-28 20:59:00 Jeffry [facility] IGM [place] HEPATITIS B SURFACE 2022-04-28 20:59:00 Jeffry [facility] ANTIGEN [place] HEPATITIS B SURFACE AB, 2022-04-28 20:58:00 Met Jeffry [facility] QUANTITATIVE [place] HEMODIALYSIS 2022-04-28 15:58:20 [facility] TROPONIN T 2022-04-28 15:44:00 [facility] 1 VW PORTABLE 2022-04-28 11:41:07 [facility] TROPONIN T 2022-04-28 11:41:00 [facility] HC COMPLETE BLD COUNT 2022-04-28 11:41:00 [facility] W/AUTO DIFF COMPREHENSIVE METABOLIC 2022-04-28 11:41:00 [facility] PANEL PROTHROMBIN TIME WITH INR 2022-04-28 11:41:00 [facility] PARTIAL THROMBOPLASTIN 2022-04-28 11:41:00 [facility] TIME (PTT) B NATRIURETIC PEPTIDE 2022-04-28 11:41:00 [facility] PROCALCITONIN 2022-04-28 11:41:00 [facility] CREATINE KINASE, TOTAL 2022-04-28 11:41:00 [facility] (CPK) C-REACTIVE PROTEIN 2022-04-28 11:41:00 [facility] INTERLEUKIN 6 2022-04-28 11:41:00 [facility] FERRITIN LEVEL 2022-04-28 11:41:00 [facility] D-DIMER 2022-04-28 11:41:00 [facility] LDH 2022-04-28 11:41:00 [facility] FIBRINOGEN 2022-04-28 11:41:00 [facility] ESTIMATED GFR 2022-04-28 11:41:00 [facility] RESPIRATORY PATHOGEN PANEL 2022-04-28 09:45:00 [facility] WITH COVID-19 RT-PCR [facility] XR CHEST 1 VW 2022-04-28 08:05:46 Taylor Woodall reema [place] BLOOD CULTURE, AEROBIC & 2022-04-28 07:49:00 Taylor Woodall [facility] ANAEROBIC [facility] HC COMPLETE BLD COUNT 2022-04-28 07:49:00 Taylor Woodall [facility] W/AUTO DIFF [facility] COMPREHENSIVE METABOLIC 2022-04-28 07:49:[address] [facility] PANEL [facility] TROPONIN T 2022-04-28 07:49:00 Amos Pressley [facility] B NATRIURETIC PEPTIDE 2022-04-28 07:49:00 [facility] ESTIMATED GFR 2022-04-28 07:49:00 Taylor Woodall ECG ED PRELIMINARY 2022-04-28 07:26:13 Taylor Woodall [facility] INTERPRETATION [facility] ECG 12-LEAD 2022-04-28 07:20:02 [facility] reema [place] CT ABDOMEN PELVIS WO 2022-04-16 23:38:27 Cornelio [facility] CONTRAST HC COMPLETE BLD COUNT 2022-04-16 23:14:00 Cornelio [facility]/AUTO DIFF COMPREHENSIVE METABOLIC 2022-04-16 23:14:00 Cornelio [facility] PANEL LIPASE LEVEL 2022-04-16 23:14:00 Cornelio [facility] ESTIMATED GFR 2022-04-16 23:14:00 [facility] BASIC METABOLIC PANEL 2022-04-14 22:54:00 [facility] ESTIMATED GFR 2022-04-14 22:54:00 [facility] Hospital[facility] POC GLUCOSE 2022-04-14 22:04:00 Puneet Lovelace [facility] CT ANGIOGRAM PE CHEST 2022-04-14 00:23:[address] [facility] IR VERTEBRO LUM UNI OR BALDO 2022-04-13 19:25:00 Jena Cool [facility] ECG 12-LEAD 2022-04-13 18:05:39 Greg Snyder [facility] BASIC METABOLIC PANEL 2022-04-13 10:16:00 Radu [facility] HC COMPLETE BLD COUNT 2022-04-13 10:16:00 Radu [facility] W/AUTO DIFF PROTHROMBIN TIME WITH INR 2022-04-13 10:16:00 Radu [facility] ESTIMATED GFR 2022-04-13 10:16:00 Radu [facility] TYPE AND SCREEN 2022-04-13 10:16:00 [facility] TROPONIN T 2022-04-13 02:33:00 Radu [facility] HEMODIALYSIS 2022-04-13 01:59:31 [facility] [place] TTE COMPLETE, WO CONTRAST, 2022-04-13 00:15:00 Puneet Lovelace ier [facility] W DOPPLER ([id number]) TROPONIN T 2022-04-12 23:10:00 Radu [facility] TROPONIN T 2022-04-12 20:19:00 Radu [facility] HEMODIALYSIS 2022-04-11 13:51:20 [facility] HC COMPLETE BLD COUNT 2022-04-11 11:10:00 Travon [facility] W/AUTO DIFF BASIC METABOLIC PANEL 2022-04-11 11:10:00 [facility] PARATHYROID HORMONE 2022-04-11 11:10:00 [facility]ena [facility] VITAMIN D 25 HYDROXY LEVEL 2022-04-11 11:10:00 [facility] DIGOXIN LEVEL 2022-04-11 11:10:00 Barshaquillewska-Daca [facility] [place] PHOSPHORUS LEVEL 2022-04-11 11:10:00 Jeffry [facility] [place] ESTIMATED GFR 2022-04-11 11:10:00 Travon [facility] HC COMPLETE BLD COUNT 2022-04-10 09:45:00 Travon [facility] W/AUTO DIFF BASIC METABOLIC PANEL 2022-04-10 09:45:00 Travon [facility] PROTHROMBIN TIME WITH INR 2022-04-10 09:45:00 Travon [facility] ESTIMATED GFR 2022-04-10 09:45:00 Travon [facility] GASTROINTESTINAL PANEL 2022-04-09 22:47:00 Ellie Crespo [facility] XR CHEST 1 VW PORTABLE 2022-04-09 17:34:26 Travon [facility] HC COMPLETE BLD COUNT 2022-04-09 10:01:00 Travon [facility] W/AUTO DIFF BASIC METABOLIC PANEL 2022-04-09 10:01:00 Travon [facility] ESTIMATED GFR 2022-04-09 10:01:00 Travon [facility] HEMODIALYSIS 2022-04-08 14:21:31 Catalina Teran [facility] HC COMPLETE BLD COUNT 2022-04-08 10:11:00 Travon [facility] W/AUTO DIFF COMPREHENSIVE METABOLIC 2022-04-08 10:11:00 Travon [facility] PANEL ESTIMATED GFR 2022-04-08 10:11:00 Travon [facility] MRI LUMBAR SPINE WO 2022-04-08 02:13:34 Gutierrez Le[facility] CONTRAST POTASSIUM LEVEL 2022-04-07 18:15:00 [facility] o[facility]ital [place] HEPATITIS B SURFACE 2022-04-07 13:46:00 [facility] ANTIGEN [place] HEPATITIS B SURFACE 2022-04-07 13:46:00 [facility] ANTIBODY [place] TROPONIN T 2022-04-07 13:43:00 Gutierrez Leal spital HEMODIALYSIS 2022-04-07 13:16:08 Catalina Teran H ospital [place] HC COMPLETE BLD COUNT 2022-04-07 11:21:00 Shaikh [facility] W/AUTO DIFF PROTHROMBIN TIME WITH INR 2022-04-07 11:21:00 Shaikh [facility] COMPREHENSIVE METABOLIC 2022-04-07 11:21:00 Shaikh [facility] PANEL THYROID STIMULATING 2022-04-07 11:21:00 Leal [facility] HORMONE ESTIMATED GFR 2022-04-07 11:21:00 Gutierrez Leal spital ZZCOVID-19 ANTI-SPIKE IGG 2022-04-07 06:43:00 [facility] ANTIBODY TITER COVID-19 SEROLOGY PATIENT 2022-04-07 06:43:00 Shaikh [facility] SURVEILLANCE TROPONIN T 2022-04-07 06:43:00 Gutierrez Leal spital PROCALCITONIN 2022-04-07 06:43:00 Gutierrez Leal spital URINE CULTURE 2022-04-07 05:18:00 Ellie Crespo [facility] COVID-19 QUALITATIVE 2022-04-07 04:41:00 [facility]INALYSIS SCREEN AND 2022-04-07 04:41:00 [facility] WITH REFLEX TO CULTURE CT ABDOMEN PELVIS WO 2022-04-07 03:51:[facility] LUMBAR SPINE WO 2022-04-07 03:49:20 [facility] COMPREHENSIVE METABOLIC 2022-04-07 03:31:00 [facility] COMPLETE BLD COUNT 2022-04-07 03:31:[address] [facility] W/AUTO DIFF ESTIMATED GFR 2022-04-07 03:31:00 Ellie Crespo spital XR CHEST 1 VW 2022-04-07 03:22:49 Ellie Crespo spital ECG ED PRELIMINARY 2022-04-07 02:44:[address] [facility] 12-LEAD 2022-04-07 02:40:03 Gutierrez Leal spital HEMODIALYSIS 2021-12-28 14:28:03 Baranowska-Daca, [facility] BASIC METABOLIC PANEL 2021-12-28 03:17:00 Baranowskylee-Daca, [facility] [place]arie ESTIMATED GFR 2021-12-28 03:17:00 Baranowska-Daca, [facility] POC GLUCOSE 2021-12-28 02:29:00 Michelle Golden [facility] R IR VERTEBRO CERVICAL AND 2021-12-27 20:19:56 SolipMichelle elmore [facility] THOR UNI OR BALDO R IR VERTEBROPLASTY EA ADDL 2021-12-27 20:19:56 Michelle Golden [facility] T OR L R [place] AN ELECTIVE 2021-12-27 19:47:00 Devonte Schuster Ilfrancisca [facility] ENDOTRACHEAL AIRWAY HEMODIALYSIS 2021-12-26 20:14:38 Baranonima-Daca, [facility] Hospital[facility] CenterValarie BLOOD CULTURE, AEROBIC & 2021-12-25 20:28:00 Nilesh Nation [facility] ANAEROBIC URINE CULTURE 2021-12-24 23:56:00 Baranowska-Daca, [facility] RENAL STONE PROTOCOL 2021-12-24 23:39:33 Baranowskylee-Daca, [facility] URINALYSIS SCREEN AND 2021-12-24 22:29:00 Baranowskylee-Daca, [facility] MICROSCOPY, WITH REFLEX TO [place]arie CULTURE HEMODIALYSIS 2021-12-24 15:08:13 Baranowska-Daca, [facility] HC COMPLETE BLD COUNT 2021-12-23 09:55:00 Solipcatarina, [facility] W/AUTO DIFF R BASIC METABOLIC PANEL 2021-12-23 09:55:00 Solmonique, [facility] R PROTHROMBIN TIME WITH INR 2021-12-23 09:55:00 [place], Michelle goodne [facility] R URIC ACID LEVEL 2021-12-23 09:55:00 Baranowska-Daca, [facility] ospital [place] DIGOXIN LEVEL 2021-12-23 09:55:00 Baranowska-Daca, [facility] ospital [place] CORTISOL LEVEL, AM 2021-12-23 09:55:00 Baranowska-Daca, [facility] HEMOGLOBIN A1C 2021-12-23 09:55:00 Baranowska-Daca, [facility] ospital [place] AMYLASE LEVEL 2021-12-23 09:55:00 Baranowska-Daca, [facility] ospital [place] LIPASE LEVEL 2021-12-23 09:55:00 Baranowska-Daca, [facility] ospital [place] ESTIMATED GFR 2021-12-23 09:55:00 [place], [facility] R VITAMIN D 25 HYDROXY LEVEL 2021-12-22 09:33:00 Baranowska-Daca, [facility] PARATHYROID HORMONE 2021-12-22 09:33:00 Baranowska-Daca, [facility] PHOSPHORUS LEVEL 2021-12-22 09:33:00 Baranowska-Daca, [facility] XR SHOULDER 2+ VW RIGHT 2021-12-22 04:05:25 Baranowska-Daca, [facility] HEMODIALYSIS 2021-12-22 03:41:52 Baranowska-Daca, [facility] ospital [place] MRI LUMBAR SPINE WO 2021-12-21 15:10:25 Safia Scherer [facility] CONTRAST MRI THORACIC SPINE WO 2021-12-21 14:44:08 Safia Scherer [facility] CONTRAST BASIC METABOLIC PANEL 2021-12-21 10:43:00 Baranowska-Daca, [facility] [place] ESTIMATED GFR 2021-12-21 10:43:00 Baranowska-Daca, [facility] BASIC METABOLIC PANEL 2021-12-20 22:26:00 Baranowska-Daca, [facility] [place] ESTIMATED GFR 2021-12-20 22:26:00 Baranowska-Daca, [facility] HEMODIALYSIS 2021-12-20 14:03:25 Baranowska-Daca, [facility] HC COMPLETE BLD COUNT 2021-12-20 09:43:00 [facility] W/AUTO DIFF Tajdin COMPREHENSIVE METABOLIC 2021-12-20 09:43:00 [facility] PANEL Tajdin MAGNESIUM LEVEL 2021-12-20 09:43:00 [facility] Tajdin ESTIMATED GFR 2021-12-20 09:43:00 [facility] Tajdin TROPONIN T 2021-12-20 00:24:00 Cristofer Grimes [facility] HEPATITIS B SURFACE 2021-12-20 00:24:00 [facility], [facility] ANTIGEN [facility] HEPATITIS B SURFACE AB, 2021-12-20 00:24:[address] [facility] QUANTITATIVE [place] HEMODIALYSIS 2021-12-19 22:22:37 Baranowska-Peea, [facility] THYROID STIMULATING 2021-12-19 21:32:00 [facility] H[facility] T4, FREE 2021-12-19 21:32:00 Angy Mccord spital TROPONIN T 2021-12-19 21:32:00 Angy Mccord spital COVID-19 QUALITATIVE 2021-12-19 21:22:00 Cornelio [facility] RT-PCR CT LUMBAR SPINE WO 2021-12-19 20:55:41 Ray, [facility] CONTRAST CT THORACIC SPINE WO 2021-12-19 20:53:28 Ray, [facility] CONTRAST CT ANGIOGRAM PE CHEST 2021-12-19 20:45:21 Ray, [facility] ECG 12-LEAD 2021-12-19 19:35:11 Ray, [facility] XR THORACIC SPINE 2 VW 2021-12-19 19:17:36 Ray, [facility] HC COMPLETE BLD COUNT 2021-12-19 18:50:00 Ray, [facility] W/AUTO DIFF COMPREHENSIVE METABOLIC 2021-12-19 18:50:00 Ray, [facility] PANEL TROPONIN T 2021-12-19 18:50:00 Ray, [facility] ESTIMATED GFR 2021-12-19 18:50:00 Ray, [facility] LIPASE LEVEL 2021-12-19 18:50:00 Ray, [facility] ECG ED PRELIMINARY 2021-12-19 18:18:35 Ray, [facility] INTERPRETATION XR CHEST 2 VW 2021-11-14 16:02:54 [facility] Diabetic retinal eye 2019-12-11 06:00:00 Jourdan Barrios exam<sup>1</sup> Mammogram 2017-05-05 05:00:00 Aylin Her hunt Colonoscopy<sup>2</sup> 2016-11-17 06:00:00 Turner rialeonard Denis OPEN REDUCTION INTERNAL 2015-12-30 22:13:00 Johnson, Jose Francisco Turner rialeonard Denis FIXATION RADIUS INTRA-ARTICULAR W/3 FRAGMENTS [id number] (Right)<sup>1</sup> Repair of 2015-12-30 06:00:00 Aylin hunt wrist<sup>3</sup> skin cancer removed from 2011-10-22 00:00:00 Mem orial Denis arm Cholecystectomy [facility] Denis Procedure<sup>2</sup> [facility] ermann Tubal ligation [facility] Biopsy of breast Aylin Zhang n bilateral radial Aylin Zhang n kerototomy bilateral tubal ligation Jourdan Brarios colonoscopy [facility] Skin cancer of [facility] arm<sup>4</sup> Plan of Care Planned Activity Planned Date Details Comments Source Future Scheduled 2029-06-28 DTAP/TDAP/TD VACCINES [facility] 00:00:00 (2 - Td or Tdap) [code Medic al Center = DTAP/TDAP/TD VACCINES (2 - Td or Tdap)] Future Scheduled 2022-09-01 HEPATITIS B VACCINES Met [facility] Test 11:07:43 (1 of 3 - 3-dose series) [code = HEPATITIS B VACCINES (1 of 3 - 3-dose series)] Future Scheduled 2022-09-01 COVID-19 VACCINE (#1) [facility] Test 11:07:43 [code = COVID-19 VACCINE (#1)] Future Scheduled 2022-09-01 65+ PNEUMOCOCCAL [facility] Test 11:07:43 VACCINE (1 - PCV) [code = 65+ PNEUMOCOCCAL VACCINE (1 - PCV)] Future Scheduled 2022-09-01 SHINGLES VACCINES (1 Met [facility] Test 11:07:43 of 2) [code = SHINGLES VACCINES (1 of 2)] Future Scheduled 2022-09-01 Screening for [facility] Test 11:07:43 malignant neoplasm of cervix (procedure) [code = 127841571] Future Scheduled 2022-09-01 COLONOSCOPY SCREENING [facility] Test 11:07:43 [code = COLONOSCOPY SCREENING] Future Scheduled 2022-09-01 BREAST CANCER [facility] Test 11:07:43 SCREENING [code = BREAST CANCER SCREENING] Future Scheduled 2022-08-[address] [facility] 00:00:00 WELLNESS (YEAR 2 or Medical Center FIRST YEAR if no IPPE) [code = MEDICARE ANNUAL WELLNESS (YEAR 2 or FIRST YEAR if no IPPE)] Future Scheduled 2021-10-[address] [facility] Test 00:00:00 (12+) [code = Medical Center DEPRESSION SCREENING (12+)] Future Scheduled 2021-10-22 FALLS RISK SCREENING [facility] Test 00:00:00 [code = FALLS RISK Medical C enter SCREENING] Future Scheduled 2021 PNEUMOCOCCAL 65+ YRS [facility] Test 00:00:00 (1 - PCV) [code = Medical Ce nter PNEUMOCOCCAL 65+ YRS (1 - PCV)] Future Scheduled 2006 SHINGLES VACCINES ([address] [facility] Test 00:00:00 of 2) [code = SHINGLES Medic al Center VACCINES (1 of 2)] Future Scheduled [address] [facility] Test 00:00:00 Counseling and Medical Cente r Screening (12+) [code = Tobacco Cessation Counseling and Screening (12+)] Future Scheduled 1957-03-03 COVID-19 VACCINE (#1) [facility] Test 00:00:00 [code = COVID-[address] VACCINE (#1)] Future Scheduled [address] [facility] Test 00:00:00 malignant neoplasm of Medica l Center breast (procedure) [code = 138230180] Future Scheduled [address] [facility] Test 00:00:00 (combo) [code = CT Medical C enter Colonography (combo)] Future Scheduled [address] [facility] Test 00:00:00 malignant neoplasm of Medica l Center colon (procedure) [code = 171097798] Future Scheduled [address] [facility] Test 00:00:00 malignant neoplasm of Medica l Center colon (procedure) [code = 481011543] Future Scheduled 1955 DXA SCAN [code = DXA [facility] Test 00:00:00 SCAN] [facility] Future Scheduled [address] [facility] 00:00:00 malignant neoplasm of Medica l Center colon (procedure) [code = 726939551] Future Scheduled [address] [facility] 00:00:00 malignant neoplasm of Medica l Center colon (procedure) [code = 483181225] Future Scheduled 1955 Sigmoid[facility]code = [facility] Cent[facility] r Encounters Start End Encounter Admission Attending Care Care Encounter Source Date/Time Date/Time Type Type Clinicians Facility Department ID 2022-03-13 Inpatient EL JERSEY King ENDO [id number] [facility] 2022-09-27 Inpatient ER LANDON [facility] Cardiology 20 [id number] [facility] 14:20:00 12:50:00 TRE 2022-09-23 2022-09-27 [facility] Yaritza Reid [facility] [id number] [facility] St 14:20:00 12:50:00 [facility] 2022-09-26 2022-09-26 Orders [facility] [id number] 00:00:00 00:00:00 Only [facility] 2022-09-23 2022-09-23 Outpatient [facility] [id number] [facility] 00:00:00 23:59:00 Noel Medicin e 2022-09-23 2022-09-23 Orders [facility] [id number] [facility] 00:00:00 00:00:00 Only [facility] 2022-08-26 2022-08-27 Hospital [facility], 1.2.840.1 [id number] [place] 00:00:00 00:00:00 Encounter KORINA 23939.1.1 [address] .3.117016 .8 2022-08-26 2022-08-26 Travel 1.2.840.1 1.2.036.643 4712 [id number] Methodi 00:00:00 00:00:[address] 3.430.2.7 0.2.7.3.698 Ho spita .3.628769 084.8 l .8 2022-08-22 2022-08-22 Orders Ontiveros, 1.2.840.1 [id number] 9563 Methodi 00:00:00 00:00:00 Only Mary 28887.1.[address] Herbert 3.430.2.7 Hosp naye .3.257507 l .8 2022-08-11 2022-08-11 Office Weston, 1.2.840.1 [id number] 2140 Methodi 12:00:00 12:15:00 Visit Mary 21323.1.[address] Herbert 3.430.2.7 Hosp naye .3.957513 l .8 2022-08-11 2022-08-11 Travel 1.2.840.1 1.2.161.574 8467 801903 Methodi 00:00:00 00:00:[address] 3.430.2.7 0.2.7.3.698 Ho spita .3.623646 084.8 l .8 2022-08-02 2022-08-02 Travel 1.2.840.1 1.2.729.483 7608 690710 Methodi 00:00:00 00:00:[address] 3.430.2.7 0.2.7.3.698 Ho spita .3.764109 084.8 l .8 2022-07-26 2022-07-26 [facility] 1.2.840.1 [id number] [place] 00:00:00 00:00:00 Encounter MARY 31063.1.1 [address] 3.430.2.7 st .3.882245 .8 2022-07-26 2022-07-26 [facility] 1.2.840.1 [id number] [place] 00:00:00 00:00:00 Encounter MARY 65477.1.1 [address] .3.221282 .8 2022-07-26 2022-07-26 [facility] 1.2.840.1 [id number] [place] 00:00:00 00:00:00 Encounter MARY 46510.1.1 [address].2.7 [address] .3.171475 .8 2022-07-26 2022-07-26 Travel 1.2.840.1 1.2.056.747 4382 [id number] Methodi 00:00:00 00:00:[address] 3.430.2.7 0.2.7.3.698 Ho spita .3.439210 084.8 l .8 2022-07-11 2022-07-11 Office Bam, 1.2.840.1 [id number] 7915 Methodi 14:15:00 14:15:00 Visit Mary 51689.1.[address] 3.430.2.7 Hospit a .3.611532 l .8 2022-07-11 2022-07-11 Travel 1.2.840.1 1.2.939.783 9049 615231 Methodi 00:00:00 00:00:[address] 3.430.2.7 0.2.7.3.698 Ho spita .3.467928 084.8 l .8 2022-07-04 2022-07-04 Office Ontiveros, 1.2.840.1 [id number] 6332 Methodi 12:45:00 13:22:26 Visit Mary 60910.1.[address] Herbert 3.430.2.7 Hosp naye .3.060724 l .8 2022-07-03 2022-07-03 Travel 1.2.840.1 1.2.803.718 7683 011803 Methodi 00:00:00 00:00:[address] 3.430.2.7 0.2.7.3.698 Ho spita .3.767252 084.8 l .8 2022-06-24 2022-06-28 [facility] 1.2.840.1 [id number] Methodi 07:21:00 20:54:00 Encounter Maddison Wharton 70471.1.[address] 3.430.2.7 Hospit a .3.451087 l .8 2022-06-27 2022-06-27 Prep for Nehemiah, 1.2.840.1 [id number] 78731 19320 Methodi 00:00:00 00:00:00 Surgery Taylor D 38650.1.1 190 [address] t 3.430.2.7 Hospit a .3.461031 l .8 2022-06-24 2022-06-24 Travel 1.2.840.1 1.2.369.672 2241 921673 Methodi 00:00:00 00:00:[address] 3.430.2.7 0.2.7.3.698 Ho spita .3.836985 084.8 l .8 2022-06-14 2022-06-14 Outpatient LEONEL Conteh [facility] [id number] [facility] 04:58:00 04:58:00 Quentin 89 [facility] 2022-06-07 2022-06-07 Outpatient LEONEL Conteh [facility] [id number] [facility] 06:37:00 06:37:00 Quentin 64 [facility] 2022-05-20 2022-05-20 Lab [facility] [id number] 00:00:00 00:00:00 Requisitio [facility] 2022-05-20 2022-05-20 Lab [facility] [id number] 00:00:00 00:00:00 Requisitio Radha [facility] 2022-05-04 2022-05-04 [facility]patient [facility] 476 [id number] [place] 00:00:00 00:00:00 6[facility] 2022-04-28 2022-04-29 Emergency Taylor Woodall 1.2.840 .1 [id number] Methodi 02:04:00 18:01:00 Laura Carbajal 11804.1.1 026 Amos Pressley 3.430.2.7 Hospita Elroy Rutledge .3.651736 l .8 2022-04-28 2022-04-28 Travel 1.2.840.1 1.2.383.502 0554 056264 Methodi 00:00:00 00:00:[address] 3.430.2.7 0.2.7.3.698 Ho spita .3.302125 084.8 l .8 2022-04-19 2022-04-20 Outpatient nullFlavo [facility] 3 [id number] Memoria 21:20:00 04:59:59 r Medicine 56 l Carrillo Zhang n 2022-04-19 2022-04-20 Outpatient nullFlavo [facility] 3 [id number] Memoria 21:20:00 04:59:59 r Medicine 56 l Vizcainojoanne Zhang n 2022-04-19 2022-04-19 Outpatient Carrillo, MG [facility] [id number] 16:20:00 23:59:59 Antonella N 56 2022-04-19 2022-04-19 Outpatient MHIE IE [id number] Memoria 16:20:00 16:20:00 56 l Denis 2022-04-16 2022-04-16 Emergency Avis, 1.2.840.1 [id number] Methodi 17:10:00 22:30:00 Ashley 87385.1.1 503 [facility] 3.430.2.7 Hosp naye .3.527484 l .8 2022-04-16 2022-04-16 Travel 1.2.840.1 1.2.001.072 0745 287600 Methodi 00:00:00 00:00:[address] 3.430.2.7 0.2.7.3.698 Ho spita .3.685762 084.8 l .8 2022-04-06 2022-04-15 [facility] Travon Porras. 1.2.840.1 104 [id number] Methodi 21:20:00 13:07:00 Encounter Gutierrez Leal 69985.1.1 968 TravonJena 3.430.2.7 Hospita Puneet Lovelace .3.277735 l .8 2022-04-13 2022-04-13 Anesthesia Snyder, 1.2.840.1 [id number] 311 [id number] Methodi 13:41:00 14:30:00 Event Greg 75959.1.[address] Pauline 3.430.2.7 Hospit a .3.630219 l .8 2022-04-06 2022-04-06 Travel 1.2.840.1 1.2.269.545 4565 186128 Methodi 00:00:00 00:00:[address] 3.430.2.7 0.2.7.3.698 Ho spita .3.974738 084.8 l .8 2022-03-08 2022-03-08 Outpatient Mic Warren [facility] LA0 [id number] [facility] 07:07:00 07:07:00 79 [facility] 2022-03-08 2022-03-08 Outpatient Mic Warren [facility] F94 [facility] 07:07:00 07:07:00 [facility] 2022-03-06 2022-03-08 Phone nullFlavo [facility] Family 3467 [id number] Memoria 15:25:04 04:59:59 Message r Medicine 17 l Carrillo Vicente davis 2022-03-06 2022-03-08 Phone nullFlavo [facility] Family 3467 [id number] Memoria 15:25:04 04:59:59 Message r Medicine 17 l Carrillo davis 2022-03-06 2022-03-07 Outpatient [facility] [id number] 10:25:04 23:59:59 17 2022-03-03 2022-03-03 Emergency EM Chris Carter [facility] LA00 [id number] [facility] 12:08:00 15:51:00 00 [facility] 2022-03-03 2022-03-03 Emergency EM Chris Carter [facility] [id number] [facility] 12:08:00 15:51:00 [facility] 2022-02-27 2022-02-27 Outpatient HARJEET King [facility] [id number] [facility] 07:10:00 07:10:00 Adam 92 [facility] 2022-01-18 2022-01-18 Ambulatory nullFlavo [facility] Family 3 [id number] Memoria 15:15:00 15:15:00 Pre-Reg r Medicine 54 l Carrillo Zhang n 2022-01-18 2022-01-18 Ambulatory nullFlavo [facility] Family 3 [id number] Memoria 15:15:00 15:15:00 Pre-Reg r Medicine 54 l Carrillo Zhang n 2022-01-18 2022-01-18 Outpatient MHIE MHIE [id number] Memoria 10:15:00 10:15:00 55 leonard Barrios 2022-01-18 2022-01-18 Outpatient Carrillo, [facility] MG [id number] 10:15:00 10:15:00 Antonella Davis 55 2022-01-16 2022-01-16 Outpatient MHIE MHIE [id number] Memoria 10:30:00 10:30:00 56 leonard Denis 2022-01-16 2022-01-16 Outpatient MHIE MHIE [id number] Memoria 10:30:00 10:30:00 56 leonard Denis 2022-01-05 2022-01-05 Patient Phuong Mcginnis 1.2.840.1 [id number] Methodi 00:00:00 00:00:[address] 3.430.2.7 Hospit a .3.731605 l .8 2021-12-30 2021-12-30 Office Bma, 1.2.840.1 [id number] 0731 Methodi 10:15:00 11:21:59 Visit Mary 66841.1.[address] 3.430.2.7 Hospit a .3.044882 l .8 2021-12-30 2021-12-30 Travel 1.2.840.1 1.2.614.059 5120 325129 Methodi 00:00:00 00:00:[address] 3.430.2.7 0.2.7.3.698 Ho spita .3.893094 084.8 l .8 2021-12-19 2021-12-28 Hospital [facility] 1.2.840.1 1 [id number] Methodi 12:16:00 16:05:00 Encounter Michelle Golden 91556.1.[address] 3.430.2.7 Hospit a .3.219670 l .8 2021-12-27 2021-12-27 Anesthesia Robert Young 1.2.8 40.1 [id number] Methodi 13:07:00 14:43:00 Event Nishi Shelton 13182.1.[address] 3.430.2.7 Hospit a .3.177975 l .8 2021-12-26 2021-12-26 Telephone Bam 1.2.840.1 [id number] 2100 378123 Methodi 00:00:00 00:00:[address] 3.430.2.7 Hospit a .3.803433 l .8 2021-12-19 2021-12-21 Phone nullFlavo [facility] Family 3467 [id number] Memoria 17:07:02 05:59:59 Message r Medicine 16 l Carrillo Zhang ryan 2021-12-19 2021-12-21 Phone nullFlavo [facility] Family 3467 [id number] Memoria 17:07:02 05:59:59 Message r Medicine 16 l Carrillo Zhang ryan 2021-12-19 2021-12-20 Outpatient [facility] [id number] 11:07:02 23:59:59 16 2021-12-19 2021-12-19 Travel 1.2.840.1 1.2.058.199 4954 325752 Methodi 00:00:00 00:00:[address] 3.430.2.7 0.2.7.3.698 Ho spita .3.657383 084.8 l .8 2021-11-15 2021-11-15 Office Ching, 1.2.840.1 [id number] 9840 Methodi 16:30:00 16:34:07 Visit Scott 86386.1.[address] 3.430.2.7 Hospit a .3.863350 l .8 2021-11-14 2021-11-14 [facility], 1.2.840.1 [id number] 21403 Methodi 09:45:00 23:59:00 Encounter Scott 41181.1.[address] 3.430.2.7 Hospit a .3.289746 l .8 2021-11-14 2021-11-14 Travel 1.2.840.1 1.2.498.815 3239 546124 Methodi 00:00:00 00:00:[address] 3.430.2.7 0.2.7.3.698 Ho spita .3.538654 084.8 l .8 2021-10-28 2021-10-30 Phone nullFlavo [facility] 3467 [id number] Memoria 19:33:53 05:59:59 Message r Medicine 15 l Carrillo Zhang ryan 2021-10-28 2021-10-30 Phone nullFlavo [facility] 3467 [id number] Memoria 19:33:53 05:59:59 Message r Medicine 15 l Vizcaino Vicente davis 2021-10-28 2021-10-29 Outpatient [facility] [id number] 13:33:53 23:59:59 15 2021-10-19 2021-10-21 Phone nullFlavo [facility] Family 3467 [id number] Memoria 19:38:03 05:59:59 Message r Medicine 14 leonard Carrillo Zhang ryan 2021-10-19 2021-10-21 Phone nullFlavo [facility] 3467 [id number] Memoria 19:38:03 05:59:59 Message r Medicine 14 leonard davis 2021-10-19 2021-10-20 Outpatient MHMG MHMG [id number] 13:38:03 23:59:59 14 2021-10-17 2021-10-18 Outpatient nullFlavo [facility] Family 3 [id number] Memoria 21:15:00 05:59:59 r Medicine 53 l Carrillo davis 2021-10-17 2021-10-18 Outpatient nullFlavo [facility] 3 [id number] Memoria 21:15:00 05:59:59 r Medicine 53 l Vizcaino Vicente n 2021-10-17 2021-10-17 Outpatient Michael, [facility] [id number] 15:15:00 23:59:59 Antonella N 53 2021-10-17 2021-10-17 Outpatient ANDREINA [facility] [id number] Memoria 15:15:00 15:15:00 54 leonard Denis 2021-09-20 2021-09-20 Office Ahmed, 1.2.840.1 [id number] Methodi 15:30:00 16:01:04 Visit Sctot 48102.1.[address] 3.430.2.7 Hospit a .3.656163 l .8 2021-09-20 2021-09-20 Travel 1.2.840.1 1.2.807.979 8621 570255 Methodi 00:00:00 00:00:[address] 3.430.2.7 0.2.7.3.698 Ho spita .3.045233 084.8 l .8 2021-09-12 2021-09-13 Between nullFlavo [facility] Family 3467 [id number] Memoria 14:18:24 14:18:24 Visit r Medicine 62 l Carrillo davis 2021-09-12 2021-09-13 Between nullFlavo [facility] Family 3467 [id number] Memoria 14:18:24 14:18:24 Visit r Medicine 62 l Carrillo davis 2021-09-12 2021-09-13 Outpatient [facility] [id number] 08:18:24 08:18:24 62 2021-09-12 2021-09-13 Between nullFlavo [facility] Family 3467 [id number] Memoria 00:56:47 00:56:47 Visit r Medicine 61 l Carrillo davis 2021-09-12 2021-09-13 Between nullFlavo [facility] Family 3467 [id number] Memoria 00:56:47 00:56:47 Visit r Medicine 61 l Carrillo davis 2021-09-11 2021-09-12 Outpatient [facility] MG [id number] 18:56:47 18:56:47 61 2021-09-09 2021-09-10 Outpatient nullFlavo [facility] Family 3 [id number] Memoria 20:00:00 05:59:59 r Medicine 52 leonard Zhang n 2021-09-09 2021-09-10 Outpatient nullFlavo [facility] Family 3 [id number] Memoria 20:00:00 05:59:59 r Medicine 52 leonard Zhang n 2021-09-09 2021-09-09 Outpatient Carrillo, [facility] MG [id number] 14:00:00 23:59:59 Antonella N 52 2021-09-09 2021-09-09 Outpatient MHIE MHIE [id number] Memoria 14:00:00 14:00:00 53 leonard Barrios 2021-09-06 2021-09-08 Phone nullFlavo [facility] Family 3467 [id number] Memoria 21:38:38 05:59:59 Message r Medicine 13 leonard Zhang n 2021-09-06 2021-09-08 Phone nullFlavo [facility] Family 3467 [id number] Memoria 21:38:38 05:59:59 Message r Medicine 13 leonard davis 2021-09-06 2021-09-07 Outpatient [facility] MG [id number] 15:38:38 23:59:59 13 2021-09-07 2021-09-07 Office Ekeruo, 1.2.840.1 [id number] Methodi 11:00:00 11:44:58 Visit Mary 41015.1.[address] 3.430.2.7 Hospit a .3.584549 l .8 2021-09-07 2021-09-07 Travel 1.2.840.1 1.2.102.955 0963 [id number] Methodi 00:00:00 00:00:[address] 3.430.2.7 0.2.7.3.698 Ho spita .3.560311 084.8 l .8 2021-09-05 2021-09-06 Between nullFlavo [facility] Family 3467 [id number] Memoria 15:33:59 15:33:59 Visit r Medicine 59 l Carrillo Zhang n 2021-09-05 2021-09-06 Between nullFlavo [facility] Family 3467 [id number] Memoria 15:33:59 15:33:59 Visit r Medicine 59 l Carrillo Zhang n 2021-09-05 2021-09-06 Outpatient [facility] [id number] 09:33:59 09:33:59 59 2021-07-14 2021-07-26 Inpatient SOLIPURAM, [facility] 074 [id number] [place] 00:00:00 00:00:00 MICHELLE [address] 2021-07-19 2021-07-19 Outpatient GC_EAH_Brow PRIV PRIV 140 [id number] [facility] 00:00:00 00:00:00 n_J [id number] Medica l 2021-07-13 2021-07-13 Outpatient OPPERMANN, [facility] [id number] [place] 00:00:00 00:00:00 KRISTIAN [address] 2021-06-30 2021-06-30 Outpatient AHMED, [facility] [id number] [place] 00:00:00 00:00:00 RAZIUDDIN 273 Meth aiden 2021-06-07 2021-06-07 Outpatient EKERUO, [facility] [id number] [place] 00:00:00 00:00:00 MARY 787 Method i 2021-06-07 2021-06-07 Outpatient DAOURA, [facility] [id number] [place] 00:00:00 00:00:00 NILESH [address] 2021-05-19 2021-05-26 Inpatient MATHIVANAN, [facility] 064 [id number] [place] 00:00:00 00:00:00 COURTNEY [address] 2021-05-12 2021-05-12 Outpatient AHMED, [facility] [id number] [place] 00:00:00 00:00:00 RAZIUDDIN [address] 2021-05-11 2021-05-11 Outpatient EKERUO, [facility] 718 [id number] [place] 00:00:00 00:00:00 MARY [address] 2021-05-06 2021-05-06 Outpatient EKERUO, [facility] [id number] [place] 00:00:00 00:00:00 MARY [address] 2021-05-06 2021-05-06 Outpatient EKERUO, [facility] [id number] [place] 00:00:00 00:00:00 MARY [address] 2021-05-03 2021-05-03 Outpatient EKERUO, [facility] [id number] [place] 00:00:00 00:00:00 MARY [address] 2021-04-08 2021-04-21 Inpatient SOLIPURAM, [facility] 064 [id number] [place] 00:00:00 00:00:00 MICHELLE [address] 2021-03-09 2021-03-09 Outpatient AHMED, [facility] [id number] [place] 00:00:00 00:00:00 RAZIUDDIN 101 [facility] aiden 2021-02-24 2021-02-24 Outpatient [facility]Flavo [facility] 3467 [id number] [facility] 01:00:00 04:59:00 r [place] 58 l Willet Karen 2021-02-24 2021-02-24 Outpatient [facility]Flavo [facility] 3467 [id number] [facility] 01:00:00 04:59:00 r [place] 58 l Willet Karen 2021-02-23 2021-02-23 Outpatient Ahmed, [facility] MH[facility] [id number] 20:00:00 23:59:00 Raziuddin 58 2021-02-23 2021-02-23 Outpatient AHMED, [facility] PUL 7558 [facility] 20:00:00 23:59:00 RAZIUDDIN 2021-02-10 2021-02-10 Outpatient AHMED, [facility] [id number] [place] 00:00:00 00:00:00 RAZIUDDIN [address] 2021-02-03 2021-02-08 Inpatient RADHAIVANAN, [facility] 064 [id number] [place] 00:00:00 00:00:00 COURTNEY [address] 2021-01-20 2021-01-20 Outpatient [facility] [id number] [place] 00:00:00 00:00:[address] 2021-01-18 2021-01-19 Outpatient nullFlavo [facility] 3 [id number] Memoria 19:30:00 04:59:59 r Medicine 51 l Vizcaino Vicente n 2021-01-18 2021-01-19 Outpatient nullFlavo [facility] Family 3 [id number] [facility] 19:30:00 04:59:59 r Medicine 51 l Carrillo Zhang n 2021-01-18 2021-01-18 Outpatient Carrillo, MG MG [id number] 14:30:00 23:59:59 Antonella N 51 2021-01-18 2021-01-18 Outpatient MHIE IE [id number] [facility]oria 14:30:00 14:30:00 51 l Denis 2021-01-18 2021-01-18 Outpatient [facility] [id number] [place] 00:00:00 00:00:[address] 2021-01-14 2021-01-15 Between nullFlavo [facility] 3467 [id number] Memoria 13:38:03 13:38:03 Visit r Medicine 57 l Vizcaino Vicente n 2021-01-14 2021-01-15 Between nullFlavo [facility] 3467 [id number] [facility] 13:38:03 13:38:03 Visit r Medicine 57 l Vizcaino Vicente n 2021-01-14 2021-01-15 Outpatient MG MG [id number] 08:38:03 08:38:03 57 2021-01-12 2021-01-12 Outpatient CHING, [facility] [id number] [place] 00:00:00 00:00:00 RAZIUDDIN [address] 2020-12-31 2021-01-05 Inpatient MARY ALICE [facility] 025 [id number] [place] 00:00:00 00:00:00 COURTNEY 541 Method i 2020-12-17 2020-12-28 Inpatient MARY ALICE [facility] Vidya 2100 [id number] [place] 00:00:00 00:00:00 COURTNEY 559 Method i 2020-10-11 2020-10-18 Inpatient RADHAJOSÉ ANTONIO [facility] 012 [id number] [place] 00:00:00 00:00:00 COURTNEY [address] 2020-09-15 2020-09-16 Outpatient nullFlavo [facility] 3 [id number] [facility]oria 16:30:00 05:59:59 r Medicine 50 l Carrillo Zhang n 2020-09-15 2020-09-16 Outpatient nullFlavo [facility] 3 [id number] [facility] 16:30:00 05:59:59 r Medicine 50 l Carrillo Zhang n 2020-09-15 2020-09-15 Outpatient Carrillo, MG [facility] [id number] 10:30:00 23:59:59 Antonella N 50 2020-09-15 2020-09-15 Outpatient MHIE IE [id number] [facility]oria 10:30:00 10:30:00 50 l Denis 2020 2020-09-07 Inpatient SOLIPURAM, [facility] 012 [id number] [place] 00:00:00 00:00:00 MICHELLE 464 Method i 2020-08-13 2020-09-01 Inpatient SOLIPURA, [facility] 012 [id number] [place] 00:00:00 00:00:00 MICHELLE 557 Method i 2020-08-13 2020-08-14 Outpt Diag nullFlavo [facility] [id number] [facility]oria 18:10:00 04:59:00 Services r Outpatient 06 l Imaging [place] Willet 2020-08-13 2020-08-14 Outpt Diag nullFlavo [facility] [id number] Memoria 18:10:00 04:59:00 Services r Outpatient 06 l Imaging Denis Willet 2020-08-13 2020-08-13 Outpatient Stadnyk, 29 [id number] 13:10:00 23:59:00 Tyrell Davis 06 2020-08-11 2020-08-12 Between nullFlavo [facility] Family 3467 [id number] Memoria 17:58:19 17:58:19 Visit r Medicine 56 l Carrillo Zhang n 2020-08-11 2020-08-12 Between nullFlavo [facility] 3467 [id number] [facility] 17:58:19 17:58:19 Visit r Medicine 56 l Carrillo Zhang n 2020-08-11 2020-08-12 Outpatient MG [facility] [id number] 12:58:19 12:58:19 56 2020-08-03 2020-08-04 Outpatient nullFlavo [facility] Family 3 [id number] Memoria 15:15:00 04:59:59 r Medicine 49 l Carrillo Zhang n 2020-08-03 2020-08-04 Outpatient nullFlavo [facility] 3 [id number] Memoria 15:15:00 04:59:59 r Medicine 49 l Carrillo Zhang n 2020-08-03 2020-08-03 Outpatient Carrillo, MG [facility] [id number] 10:15:00 23:59:59 Antonella Davis 49 2020-08-03 2020-08-03 Outpatient MHIE MHIE [id number] Memoria 10:15:00 10:15:00 49 l [place] 2020-06-22 2020-06-23 Outpt Diag nullFlavo [facility] [id number] Memoria 17:02:00 04:59:00 Services r Outpatient 05 l Imaging [place] Willet 2020-06-22 2020-06-23 Outpt Diag nullFlavo [facility] [id number] Memoria 17:02:00 04:59:00 Services r Outpatient 05 l Imaging [place] Willet 2020-06-22 2020-06-22 Outpatient Stad[place], 29 [facility] [id number] 12:02:00 23:59:00 Tyrell N 05 2020-06-17 2020-06-17 Ambulatory nullFlavo [facility] [id number] Memoria 19:00:00 19:00:00 Pre-Reg r Nephrology 47 l Carrillo Zhang n 2020-06-17 2020-06-17 Ambulatory nullFlavo [facility] [id number] Memoria 19:00:00 19:00:00 Pre-Reg r Nephrology 47 l Carrillo Zhang n 2020-06-17 2020-06-17 Outpatient MHIE IE [id number] Memoria 14:00:00 14:00:00 47 l Denis 2020-06-17 2020-06-17 Outpatient Vinnie- MG [facility] [id number] 14:00:00 14:00:00 [place] 2020-06-10 2020-06-10 Outpatient MHIE MHIE [id number] Memoria 11:15:00 11:15:00 48 l Denis 2020-06-10 2020-06-10 Outpatient MHIE MHIE [id number] Memoria 11:15:00 11:15:00 48 leonard Denis 2020-06-02 2020-06-03 [place] [id number] Memoria 19:45:00 04:59:59 r Nephrology 49 l Carrillo Zhang ryan 2020-06-02 2020-06-03 Outpatient nullFlavo [facility] [id number] Memoria 19:45:00 04:59:59 r Nephrology 49 l Carrillo Zhang ryan 2020-06-02 2020-06-02 [facility] [id number] 14:45:00 23:59:59 Daca, 49 Valarie J 2020-06-02 2020-06-02 Outpatient MHIE MHIE [id number] Memoria 14:45:00 14:45:00 49 leonard Denis 2020-05-20 2020-05-20 [id number] [address] [place] [address] 00:00:00 00:00:00 FAB[place]A [address] 2020-03-23 2020-03-25 Phone nullFlavo [facility] [id number] Memoria 16:17:50 04:59:59 Message r Nephrology 13 leonard Zhang ryan 2020-03-23 2020-03-25 Phone nullFlavo MG [id number] Memoria 16:17:50 04:59:59 Message r Nephrology 12 leonard Zhang ryan 2020-03-23 2020-03-24 Outpatient MG MG [id number] 11:17:50 23:59:59 12 2020-03-18 2020-03-19 [place] [id number] Memoria 19:00:00 04:59:59 r Nephrology 42 l Carrillo Zhang ryan 2020-03-18 2020-03-19 [place] [id number] Memoria 19:00:00 04:59:59 r Nephrology 42 l Carrillo Zhang ryan 2020-03-18 2020-03-18 Outpatient [place]- [facility] [id number] 14:00:00 23:59:59 Daca, 42 Valarie J 2020-03-18 2020-03-18 Outpatient MHIE MHIE [id number] Memoria 14:00:00 14:00:00 42 leonard Barrios 2020-03-08 2020-03-10 Phone nullFlavo MG [id number] Memoria 18:35:51 04:59:59 Message r Nephrology 11 leonard Barrios 2020-03-08 2020-03-10 Phone nullFlavo MG [id number] Memoria 18:35:51 04:59:59 Message r Nephrology 11 leonard Barrios 2020-03-08 2020-03-09 Outpatient [facility] MG [id number] 13:35:51 23:59:59 11 2020-02-11 2020-02-12 Outpatient nullFlavo [facility] 3 [id number] Memoria 15:15:00 04:59:59 r Medicine 45 l Carrillo Zhang n 2020-02-11 2020-02-12 Outpatient nullFlavo [facility] 3 [id number] Memoria 15:15:00 04:59:59 r Medicine 46 leonard Zhang n 2020-02-11 2020-02-11 Outpatient Carrillo, MH[facility] MG [id number] 10:15:00 23:59:59 Antonella N 45 2020-02-11 2020-02-11 Ambulatory nullFlavo MG Family 3 [id number] Memoria 15:15:00 15:15:00 Pre-Reg r Medicine 45 leonard Zhang n 2020-02-11 2020-02-11 Ambulatory nullFlavo MG Family 3 [id number] Memoria 15:15:00 15:15:00 Pre-Reg r Medicine 45 leonard Zhang n 2020-02-11 2020-02-11 Outpatient MHIE IE [id number] Memoria 10:15:00 10:15:00 46 leonard RameyDenis 2020-02-11 2020-02-11 Outpatient MHIE MHIE [id number] Memoria 10:15:00 10:15:00 45 leonard Barrios 2020-02-11 2020-02-11 Outpatient Carrillo, MG MG [id number] 10:15:00 10:15:00 Antonella N 44 2020-02-05 2020-02-07 Phone nullFlavo MG [id number] Memoria 13:23:32 04:59:59 Message r Nephrology 10 leonard Zhang n 2020-02-05 2020-02-07 Phone nullFlavo MG [id number] Memoria 13:23:32 04:59:59 Message r Nephrology 10 leonard Zhang yran 2020-02-05 2020-02-06 Outpatient MG [facility] [id number] 08:23:32 23:59:59 10 2020-02-05 2020-02-06 Between nullFlavo [facility] Family [id number] Memoria 14:14:54 14:14:54 Visit r Medicine 52 leonard Zhang ryan 2020-02-05 2020-02-06 Between nullFlavo [facility] Family [id number] Memoria 14:14:54 14:14:54 Visit r Medicine 52 leonard Zhang ryan 2020-02-05 2020-02-06 Outpatient [facility] MG [id number] 09:14:54 09:14:54 52 2020-02-05 2020-02-05 Outpatient MHIE MHIE [id number] Memoria 11:30:00 11:30:00 44 leonard Denis 2020-02-05 2020-02-05 Outpatient MHIE [facility] [id number] Memoria 11:30:00 11:30:00 44 leonard Denis 2020-02-02 2020-02-04 Phone nullFlavo [facility] Family [id number] Memoria 20:00:15 04:59:59 Message r Medicine 09 leonard Zhang ryan 2020-02-02 2020-02-04 Phone nullFlavo [facility] Family [id number] Memoria 20:00:15 04:59:59 Message r Medicine 09 leonard Zhang ryan 2020-02-02 2020-02-03 Outpatient MG [facility] [id number] 15:00:15 23:59:59 09 2020-01-30 2020-02-01 Phone nullFlavo [facility] Family [id number] Memoria 17:18:28 04:59:59 Message r Medicine 08 leonard Zhang ryan 2020-01-30 2020-02-01 Phone nullFlavo [facility] Family [id number] Memoria 17:18:28 04:59:59 Message r Medicine 08 leonard Zhang ryan 2020-01-30 2020-02-01 Phone nullFlavo [facility] [id number] Memoria 13:26:55 04:59:59 Message r Nephrology 07 leonard Rameycora davis 2020-01-30 2020-02-01 Phone nullFlavo [facility] [id number] Memoria 13:26:55 04:59:59 Message r Nephrology 07 l Carrillo Zhang n 2020-01-30 2020-01-31 Outpatient MG MG [id number] 12:18:28 23:59:59 08 2020-01-30 2020-01-31 Outpatient [facility] MG [id number] 08:26:55 23:59:59 07 2019-12-16 2019-12-17 Outpatient nullFlavo MG Family 3 [id number] Memoria 20:15:00 05:59:59 r Medicine 42 leonard Zhang n 2019-12-16 2019-12-17 Outpatient nullFlavo MG Family 3 [id number] Memoria 20:15:00 05:59:59 r Medicine 42 l Carrillo davis 2019-12-16 2019-12-16 Outpatient Carrilol, MG [facility] [id number] 14:15:00 23:59:59 Antonella Davis 42 2019-12-16 2019-12-16 Outpatient [facility] [id number] Memoria 14:15:00 14:15:00 43 leonard Denis 2019-11-13 2019-11-15 Phone nullFlavo [facility] Family [id number] Memoria 14:22:27 05:59:59 Message r Medicine 06 leonard Zhang ryan 2019-11-13 2019-11-15 Phone nullFlavo [facility] Family [id number] Memoria 14:22:27 05:59:59 Message r Medicine 06 leonard Zhang ryan 2019-11-13 2019-11-14 Outpatient MG [facility] [id number] 08:22:27 23:59:59 2019-10-17 2019-10-19 Phone nullFlavo [facility] Family [id number] Memoria 16:06:04 05:59:59 Message r Medicine 05 leonard Zhang ryan 2019-10-17 2019-10-19 Phone nullFlavo [facility] Family [id number] Memoria 16:06:04 05:59:59 Message r Medicine 05 leonard Zhang ryan 2019-10-17 2019-10-18 Outpatient MG [facility] [id number] 10:06:04 23:59:59 2019-10-02 2019-10-03 Between nullFlavo [id number] Memoria 20:05:03 20:05:03 Visit r Nephrology 45 l Walter Barrios 2019-10-02 2019-10-03 Between nullFlavo [facility] [id number] Memoria 20:05:03 20:05:03 Visit r Nephrology 45 leonard Barrios 2019-10-02 2019-10-03 Outpatient [facility] [id number] 14:05:03 14:05:03 45 2019-10-02 2019-10-03 Outpatient nullFlavo [facility] [id number] Memoria 20:45:00 05:59:59 r Nephrology 38 leonard Zhang n 2019-10-02 2019-10-03 Outpatient nullFlavo [facility] [id number] Memoria 20:45:00 05:59:59 r Nephrology 38 leonard Zhang n 2019-10-02 2019-10-02 [facility] [id number] 14:45:00 23:59:59 Peea, 38 Valarie Carballo 2019-10-02 2019-10-02 Outpatient IE IE [id number] Memoria 14:45:00 14:45:00 38 leonard Barrios 2019-09-26 2019-09-27 Between nullFlavo [facility] [id number] Memoria 00:07:10 00:07:10 Visit r Nephrology 43 leonard Barrios 2019-09-26 2019-09-27 Between nullFlavo [facility] [id number] Memoria 00:07:10 00:07:10 Visit r Nephrology 43 leonard Barrios 2019-09-25 2019-09-26 Outpatient [facility] [id number] 18:07:10 18:07:10 43 2019-09-25 2019-09-25 Outpatient IE IE [id number] Memoria 09:00:00 09:00:00 39 leonard Barrios 2019-09-25 2019-09-25 Outpatient IE IE [id number] Memoria 09:00:00 09:00:00 40 leonard Denis 2019-09-16 2019-09-17 Between nullFlavo [facility] Family [id number] Memoria 21:47:12 21:47:12 Visit r Medicine 41 l Carrillo Zhang ryan 2019-09-16 2019-09-17 Between nullFlavo [facility] Family [id number] Memoria 21:47:12 21:47:12 Visit r Medicine 41 leonard Zhang n 2019-09-16 2019-09-17 Outpatient [facility] [id number] 15:47:12 15:47:12 41 2019-08-19 2019-08-20 Between nullFlavo [facility] Family [id number] Memoria 22:13:13 22:13:13 Visit r Medicine 40 leonard Zhang n 2019-08-19 2019-08-20 Between nullFlavo [facility] Family [id number] Memoria 22:13:13 22:13:13 Visit r Medicine 40 leonard Zhang n 2019-08-19 2019-08-20 Outpatient [facility] [id number] 17:13:13 17:13:13 40 2019-08-15 2019-08-16 Outpatient nullFlavo [facility] Family 3 [id number] Memoria 14:45:00 04:59:59 r Medicine 40 leonard Zhang n 2019-08-15 2019-08-16 Outpatient nullFlavo [facility] Family 3 [id number] Memoria 14:45:00 04:59:59 r Medicine 40 leonard Zhang n 2019-08-15 2019-08-15 Outpatient Carrillo, [facility] MG [id number] 09:45:00 23:59:59 Antonella N 40 2019-08-15 2019-08-15 Outpatient MHIE MHIE [id number] Memoria 09:45:00 09:45:00 40 leonard Barrios 2019-08-07 2019-08-07 Ambulatory nullFlavo [facility] Family 3 [id number] Memoria 16:00:00 16:00:00 Pre-Reg r Medicine 36 leonard Zhang n 2019-08-07 2019-08-07 Ambulatory nullFlavo [facility] Family 3 [id number] Memoria 16:00:00 16:00:00 Pre-Reg r Medicine 36 leonard Zhang n 2019-08-07 2019-08-07 Outpatient MHIE MHIE [id number] Memoria 11:00:00 11:00:00 36 leonard Barrios 2019-08-07 2019-08-07 Outpatient Carrillo, MHMG MG [id number] 11:00:00 11:00:00 Antonella N 36 2019-07-31 2019-08-01 Outpatient nullFlavo [facility] [id number] Memoria 15:00:00 04:59:59 r Nephrology 35 l Carrillo Zhang n 2019-07-31 2019-08-01 Outpatient nullFlavo [facility] [id number] Memoria 15:00:00 04:59:59 r Nephrology 35 l Carrillo Zhang n 2019-07-31 2019-07-31 Outpatient Carrillo, MG [facility] [id number] 10:00:00 23:59:59 Antonella N 35 2019-07-31 2019-07-31 Outpatient MHIE IE [id number] Memoria 12:00:00 12:00:00 37 leonard Barrios 2019-07-31 2019-07-31 Outpatient MHIE IE [id number] Memoria 12:00:00 12:00:00 37 leonard Barrios 2019-07-31 2019-07-31 Outpatient MHIE IE [id number] Memoria 10:00:00 10:00:00 35 leonard Barrios 2019-07-03 2019-07-05 Phone nullFlavo [facility] Family [id number] Memoria 15:15:06 04:59:59 Message r Medicine 04 leonard Zhang n 2019-07-03 2019-07-05 Phone nullFlavo [facility] Family [id number] Memoria 15:15:06 04:59:59 Message r Medicine 04 leonard Zhang n 2019-07-03 2019-07-05 Phone nullFlavo [facility] [id number] Memoria 15:10:51 04:59:59 Message r Nephrology 03 leonard Zhang n 2019-07-03 2019-07-05 Phone nullFlavo [facility] [id number] Memoria 15:10:51 04:59:59 Message r Nephrology 03 leonard Zhang n 2019-07-03 2019-07-04 Outpatient MG [facility] [id number] 10:15:06 23:59:59 04 2019-07-03 2019-07-04 Outpatient [facility] [id number] 10:10:51 23:59:59 03 2019-07-03 2019-07-03 Ambulatory nullFlavo [facility] [id number] Memoria 20:00:00 20:00:00 Pre-Reg r Nephrology 34 l Carrillo Zhang n 2019-07-03 2019-07-03 Ambulatory nullFlavo [facility] [id number] Memoria 20:00:00 20:00:00 Pre-Reg r Nephrology 34 leonard davis 2019-07-03 2019-07-03 Outpatient [facility] [id number] Memoria 15:00:00 15:00:00 34 leonard Barrios 2019-07-03 2019-07-03 [facility] [id number] 15:00:00 15:00:00 [place], Angela Carballo 2019-06-29 2019-06-30 Between nullFlavo MG [id number] Memoria 20:15:16 20:15:16 Visit r Nephrology 34 leonard Barrios 2019-06-29 2019-06-30 Between nullFlavo MG [id number] Memoria 20:15:16 20:15:16 Visit r Nephrology 34 leonard Barrios 2019-06-29 2019-06-30 Outpatient [facility] [id number] 15:15:16 15:15:16 34 2019-06-11 2019-06-13 Phone nullFlavo MG [id number] Memoria 15:29:54 04:59:59 Message r Nephrology 02 leonard Barrios 2019-06-11 2019-06-13 Phone nullFlavo MG [id number] Memoria 15:29:54 04:59:59 Message r Nephrology 02 leonard Barrios 2019-06-11 2019-06-12 Outpatient [facility] [id number] 10:29:54 23:59:59 02 2019-06-12 2019-06-12 [place] [id number] Memoria 16:30:00 16:30:00 Pre-Reg r Nephrology 29 l Carrillo davis 2019-06-12 2019-06-12 [place] [id number] Memoria 16:30:00 16:30:00 Pre-Reg r Nephrology 29 l Carrillo davis 2019-06-12 2019-06-12 [place] [id number] Memoria 16:15:00 16:15:00 Pre-Reg r Nephrology 30 l Carrillo davis 2019-06-12 2019-06-12 [place] [id number] Memoria 16:15:00 16:15:00 Pre-Reg r Nephrology 30 leonard davis 2019-06-12 2019-06-12 Ambulatory nullFlavo [facility] Family 3 [id number] Memoria 15:15:00 15:15:00 Pre-Reg r Medicine 31 leonard davis 2019-06-12 2019-06-12 Ambulatory nullFlavo [facility] Family 3 [id number] Memoria 15:15:00 15:15:00 Pre-Reg r Medicine 31 l Carrillo Zhang n 2019-06-12 2019-06-12 Outpatient MHIE MHIE [id number] Memoria 11:30:00 11:30:00 29 leonard Denis 2019-06-12 2019-06-12 Outpatient [place]- MG MG [id number] 11:30:00 11:30:00 [place] Valarie Carballo 2019-06-12 2019-06-12 Outpatient MHIE IE [id number] Memoria 11:15:00 11:15:00 30 leonard [place] 2019-06-12 2019-06-12 Outpatient [place]- MG MG [id number] 11:15:00 11:15:00 [place] Valarie Haris 2019-06-12 2019-06-12 Outpatient MHIE MHIE [id number] Memoria 10:15:00 10:15:00 31 leonard [place] 2019-06-12 2019-06-12 Outpatient Carrillo, MG MG [id number] 10:15:00 10:15:00 Antonella Davis 31 2019-06-09 2019-06-10 Inpatient Chelsea TYS[place]hel[place], [facility] [place] [id number] [place] 10:05:00 17:55:00 EDUIN [facility] 2019-05-12 2019-05-14 Outpatient Chelsea BARRAGAN, [facility] [id number] [place] 21:36:00 19:00:00 EDUIN [facility] 2019-05-12 2019-05-13 Outpatient nullFlavo [facility] Urgent [id number] Memoria 20:40:00 04:59:59 r Care 33 l Lise [place] 2019-05-12 2019-05-13 Outpatient nullFlavo [facility] Urgent [id number] Memoria 20:40:00 04:59:59 r Care 33 leonard Lezama Denis 2019-05-12 2019-05-12 [facility] [id number] 15:40:00 23:59:59 Radha Carlito waters 2019-05-12 2019-05-12 Outpatient IE IE [id number] Memoria 15:40:00 15:40:00 33 leonard Denis 2019-03-27 2019-03-28 Outpatient nullFlavo MG Family 3 [id number] Memoria 15:15:00 04:59:59 r Medicine 32 leonard Vizcaino Vicente davis 2019-03-27 2019-03-28 Outpatient nullFlavo MG Family 3 [id number] Memoria 15:15:00 04:59:59 r Medicine 32 leonard Vizcaino Vicente davis 2019-03-27 2019-03-27 Outpatient Vinnie- [facility] [id number] 10:15:00 23:59:59 Philly Toledo 2019-03-27 2019-03-27 Outpatient IE IE [id number] Memoria 10:15:00 10:15:00 32 leonard Denis 2019-01-05 2019-01-06 Between nullFlavo MG Family [id number] Memoria 19:00:16 19:00:16 Visit r Medicine 29 leonard Vizcaino Vicente ryan 2019-01-05 2019-01-06 Between nullFlavo MG Family [id number] Memoria 19:00:16 19:00:16 Visit r Medicine 29 leonard Vizcaino Vicente davis 2019-01-05 2019-01-06 [facility] [id number] 14:00:16 14:00:16 29 2019-01-02 2019-01-03 Between nullFlavo MG [id number] Memoria 15:02:37 15:02:37 Visit r Nephrology 27 leonard Vizcaino Vicente davis 2019-01-02 2019-01-03 Between nullFlavo MG [id number] Memoria 15:02:37 15:02:37 Visit r Nephrology 27 leonard Carrillo davis 2019-01-02 2019-01-03 [facility] [id number] 10:02:37 10:02:37 27 2019-01-02 2019-01-03 [place] [id number] Memoria 18:45:00 04:59:59 r Nephrology 28 leonard Zhang n 2019-01-02 2019-01-03 [place] [id number] Memoria 18:45:00 04:59:59 r Nephrology 28 leonard Zhang n 2019-01-02 2019-01-03 Outpatient nullFlavo MG Family 3 [id number] Memoria 14:15:00 04:59:59 r Medicine 22 leonard Zhang n 2019-01-02 2019-01-03 Outpatient nullFlavo MG Family 3 [id number] Memoria 14:15:00 04:59:59 r Medicine 22 leonard Zhang n 2019-01-02 2019-01-02 Outpatient [place]- MG [facility] [id number] 13:45:00 23:59:59 Reynold [place] 2019-01-02 2019-01-02 Outpatient Carrillo, [facility] [id number] 09:15:00 23:59:59 Antonella Davis 22 2019-01-02 2019-01-02 Outpatient MHIE IE [id number] Memoria 13:45:00 13:45:00 28 leonard Barrios 2019-01-02 2019-01-02 Outpatient MHIE MHIE [id number] Memoria 09:15:00 09:15:00 22 leonard Barrios 2018-12-31 2019-01-01 Between nullFlavo MG [id number] Memoria 23:59:47 23:59:47 Visit r Nephrology 26 leonard Zhang ryan 2018-12-31 2019-01-01 Between nullFlavo MG [id number] Memoria 23:59:47 23:59:47 Visit r Nephrology 26 leonard Zhang ryan 2018-12-31 2019-01-01 Outpatient MG MG [id number] 18:59:47 18:59:47 26 2018-12-27 2018-12-28 Between nullFlavo MG [id number] Memoria 22:00:33 22:00:33 Visit r Nephrology 24 leonard Zhang ryan 2018-12-27 2018-12-28 Between nullFlavo MG [id number] Memoria 22:00:33 22:00:33 Visit r Nephrology 24 leonard Zhang n 2018-12-27 2018-12-28 Outpatient MHMG MG [id number] 16:00:33 16:00:33 24 2018-12-27 2018-12-28 Between nullFlavo MHMG [id number] Memoria 04:48:44 04:48:44 Visit r Nephrology 23 leonard davis 2018-12-27 2018-12-28 Between nullFlavo MHMG [id number] Memoria 04:48:44 04:48:44 Visit r Nephrology 23 leonard Zhang n 2018-12-26 2018-12-27 Outpatient MHMG MG [id number] 22:48:44 22:48:44 23 2018-11-14 2018-11-14 [place] [id number] Memoria 20:30:00 20:30:00 Pre-Reg r Nephrology 27 leonard davis 2018-11-14 2018-11-14 [place] [id number] Memoria 20:30:00 20:30:00 Pre-Reg r Nephrology 27 leonard Zhang n 2018-11-14 2018-11-14 [place] [id number] Memoria 18:40:00 18:40:00 Pre-Reg r Nephrology 24 leonard davis 2018-11-14 2018-11-14 [place] [id number] Memoria 18:40:00 18:40:00 Pre-Reg r Nephrology 24 leonard davis 2018-11-14 2018-11-14 Outpatient MHIE IE [id number] Memoria 14:30:00 14:30:00 27 leonard Barrios 2018-11-14 2018-11-14 Outpatient [place]- MHMG MHMG [id number] 14:30:00 14:30:00 Cordell Toledo 2018-11-14 2018-11-14 Outpatient [place]- MHMG MHMG [id number] 14:30:00 14:30:00 Cordell Tol[place] 2018-11-14 2018-11-14 Outpatient MHIE IE [id number] Memoria 12:40:00 12:40:00 24 leonard Barrios 2018-11-14 2018-11-14 [facility] [id number] 12:40:00 12:40:00 Yesi Toledo 2018-11-14 2018-11-14 [facility] [id number] 12:40:00 12:40:00 Yesi Toledo 2018-11-07 2018-11-07 [place] [id number] Memoria 15:30:00 15:30:00 [facility]-07 2018-11-07 Ambulatory nullFlavo [facility] [id number] Memoria 15:30:00 15:30:00 [facility]Reg [facility] [place] 2018-11-07 2018-11-07 Outpatient [facility] [id number] Memoria 09:30:00 09:30:00 25 leonard [place] 2018-11-07 2018-11-07 Outpatient [facility] [id number] 09:30:00 09:30:00 25 2018-07-11 2018-08-10 [place] [id number] Memoria 12:45:00 12:45:00 [facility]Reg r [facility] 2018-07-11 2018-08-10 Ambulatory nullFlavo [facility] [id number] Memoria 12:45:00 12:45:00 [facility]Reg r [facility] [place] 2018-07-11 2018-08-10 Outpatient MG [facility] [id number] 07:45:00 07:45:00 23 2018-07-18 2018-07-19 [place] [id number] Memoria 19:15:00 04:59:59 r Nephrology 26 l Carrillo Vicente davis 2018-07-18 2018-07-19 [place] [id number] Memoria 19:15:00 04:59:59 r Nephrology 26 l Carrillo Zhang ryan 2018-07-18 2018-07-19 [place] [id number] Memoria 18:00:00 04:59:59 r Nephrology 21 l Carrillo Vicente davis 2018-07-18 2018-07-19 Outpatient nullFlavo [facility] [id number] Memoria 18:00:00 04:59:59 r Nephrology 21 l Carrillo Zhang ryan 2018-07-18 2018-07-18 [id number] 14:15:00 23:59:59 Daca, 26 Valarie Carballo 2018-07-18 2018-07-18 [id number] 13:00:00 23:59:59 Daca 21 Valarie Carballo 2018-07-18 2018-07-18 Outpatient IE IE [id number] Memoria 14:15:00 14:15:00 26 leonard Denis 2018-07-18 2018-07-18 Outpatient MHIE IE [id number] Memoria 13:00:00 13:00:00 21 leonard Denis 2018-07-11 2018-07-11 Outpatient MHIE IE [id number] Memoria 07:45:00 07:45:00 23 leonard Denis 2018-06-11 2018-06-12 Outpatient nullFlavo MG Family 3 [id number] Memoria 18:30:00 04:59:59 r Medicine 20 l Carrillo Zhang ryan 2018-06-11 2018-06-12 Outpatient nullFlavo MG Family 3 [id number] Memoria 18:30:00 04:59:59 r Medicine 20 leonard Zhang n 2018-06-11 2018-06-11 Outpatient Carrillo, MG MG [id number] 13:30:00 23:59:59 Antonella Davis 20 2018-06-11 2018-06-11 Outpatient IE IE [id number] Memoria 13:30:00 13:30:00 20 leonard Denis 2018-01-10 2018-01-11 [place] [id number] Memoria 16:00:00 04:59:59 r Nephrology 19 l Carrillo Zhang n 2018-01-10 2018-01-11 [place] [id number] Memoria 16:00:00 04:59:59 r Nephrology 19 l Carrillo Zhang ryan 2018-01-10 2018-01-10 [id number] 11:00:00 23:59:59 Daca, 19 Valarie J 2018-01-10 2018-01-10 Outpatient Vinnie- MG [facility] [id number] 11:00:00 23:59:59 Ludivina [place] 2018-01-10 2018-01-10 Outpatient MHIE MHIE [id number] Memoria 11:00:00 11:00:00 19 leonard Barrios 2018-01-09 2018-01-10 Outpatient nullFlavo [facility] Family 3 [id number] Memoria 15:00:00 04:59:59 r Medicine 18 leonard Zhang ryan 2018-01-09 2018-01-10 Outpatient nullFlavo [facility] Family 3 [id number] Memoria 15:00:00 04:59:59 r Medicine 18 leonard Zhang ryan 2018-01-09 2018-01-09 Outpatient Carrillo, MHMG MG [id number] 10:00:00 23:59:59 Antonella N 18 2018-01-09 2018-01-09 Outpatient Carrillo, MHMG MG [id number] 10:00:00 23:59:59 Antonella N 18 2018-01-09 2018-01-09 Outpatient MHIE MHIE [id number] Memoria 10:00:00 10:00:00 18 leonard Barrios 2017-07-19 2017-07-19 Outpatient MHIE MHIE [id number] Memoria 10:40:00 10:40:00 16 leonard Barrios 2017-07-19 2017-07-19 Outpatient MHIE MHIE [id number] Memoria 10:40:00 10:40:00 16 leonard Barrios 2017-06-27 2017-06-27 Outpatient MHIE MHIE [id number] Memoria 11:30:00 11:30:00 17 leonard Barrios 2017-06-27 2017-06-27 Outpatient MHIE MHIE [id number] Memoria 11:30:00 11:30:00 17 leonard Barrios 2017-03-01 2017-03-01 Outpatient MHIE MHIE [id number] Memoria 11:40:00 11:40:00 11 leonard Barrios 2017-03-01 2017-03-01 Outpatient MHIE MHIE [id number] Memoria 11:40:00 11:40:00 11 leonard Barrios 2016-12-26 2016-12-26 Outpatient MHIE MHIE [id number] Memoria 14:30:00 14:30:00 15 leonard Barrios 2016-12-26 2016-12-26 Outpatient MHIE MHIE [id number] Memoria 14:30:00 14:30:00 15 leonard Barrios 2016-11-27 2016-11-27 Outpatient MHIE MHIE [id number] Memoria 10:00:00 10:00:00 08 leonard Barrios 2016-11-27 2016-11-27 Outpatient MHIE MHIE [id number] Memoria 10:00:00 10:00:00 08 leonard Barrios 2016-11-17 2016-11-17 Bedded nullFlavo [facility] [id number] Memoria 11:48:35 14:30:00 Outpatient r Denis 13 leonard Willet Herma 2016-11-17 2016-11-17 Bedded nullFlavo [facility] [id number] Memoria 11:48:35 14:30:00 Outpatient connie Barrios 13 l Willet Herma 2016-11-17 2016-11-17 Outpatient Smith, MHSL MHSL [id number] 05:48:35 08:30:00 Reinaldo Posadas 13 2016-11-09 2016-11-09 Outpatient MHIE MHIE [id number] Memoria 13:15:00 13:15:00 14 leonard Barrios 2016-11-09 2016-11-09 Outpatient MHIE MHIE [id number] Memoria 13:15:00 13:15:00 14 leonard Barrios 2016-10-18 2016-10-18 Outpatient MHIE MHIE [id number] Memoria 09:30:00 09:30:00 12 leonard Barrios 2016-10-18 2016-10-18 Outpatient MHIE MHIE [id number] Memoria 09:30:00 09:30:00 13 leonard Barrios 2016-10-18 2016-10-18 Outpatient MHIE MHIE [id number] Memoria 09:30:00 09:30:00 12 leonard Barrios 2016-10-18 2016-10-18 Outpatient MHIE MHIE [id number] Memoria 09:30:00 09:30:00 13 leonard Barrios 2016-10-12 2016-10-12 Outpatient MHIE MHIE [id number] Memoria 10:20:00 10:20:00 09 leonard Barrios 2016-10-12 2016-10-12 Outpatient [facility] [id number] Memoria 10:20:00 10:20:00 09 leonard Denis 2016-07-13 2016-07-13 Outpatient [facility] [id number] Memoria 13:00:00 13:00:00 04 leonard Denis 2016-07-13 2016-07-13 Outpatient [facility] [id number] Memoria 13:00:00 13:00:00 04 leonard Denis 2016-05-24 2016-05-24 Outpatient [facility] [id number] Memoria 11:15:00 11:15:00 06 leonard Denis 2016-05-24 2016-05-24 Outpatient [facility] [id number] Memoria 11:15:00 11:15:00 06 leonard Denis 2016-04-13 2016-05-13 OP Therapy nullFlavo SMR [id number] Memoria 13:00:00 04:59:00 Patients connie Stout 03 leonard Benji Denis 2016-04-13 2016-05-13 OP Therapy nullFlavo SMR [id number] Memoria 13:00:00 04:59:00 Patients connie Stout 03 leonard Benji Denis 2016-04-13 2016-05-12 Outpatient Johnson, [id number]. [id number]. 3 [id number] 08:00:00 23:59:00 Jose Francisco M [id number] 5.55 2016-03-14 2016-04-13 OP Therapy nullFlavo SMR [id number] Memoria 17:39:00 04:59:00 Patients connie Stout 02 leonard Benji Rameyann 2016-03-14 2016-04-13 OP Therapy nullFlavo SMR [id number] Memoria 17:39:00 04:59:00 Patients connie Stout 02 leonard Benji Rameyann 2016-03-14 2016-04-12 Outpatient [facility], 2.16.840. [id number]. 3 [id number] 12:39:00 23:59:00 Jose Francisco M [id number] 5.55 2016-03-09 2016-04-08 OP Therapy nullFlavo SMR [facility] [id number] Memoria 19:00:00 04:59:00 Patients r [place] 01 [facility] 2016-03-09 2016-04-08 OP Therapy nullFlavo S[id number] [facility] 19:00:00 04:59:00 Patients r [place] 01 [facility] 2016-03-09 2016-04-07 Outpatient Johnson, [id number]. [id number]. 3 [id number] 14:00:00 23:59:00 Jose Francisco Rai [id number] 5.69 2016-03-13 2016-03-14 Outpt Diag nullFlavo [facility] [id number] Memoria 16:14:00 04:59:00 Services r Outpatient 04 [facility] 2016-03-13 2016-03-14 Outpt Diag nullFlavo [facility] [id number] Memoria 16:14:00 04:59:00 Services r Outpatient 04 [facility] 2016-03-13 2016-03-13 [address] [id number] 11:14:00 23:59:00 [place] [facility] Sheppard Haris 2016-02-08 2016-03-09 OP Therapy nullFlavo SMR Sugar [id number] Memoria 19:00:00 04:59:00 Patients r [place] 00 [facility] 2016-02-08 2016-03-09 OP Therapy nullFlavo S[facility] Sugar [id number] Memoria 19:00:00 04:59:00 Patients r [place] 00 [facility] 2016-02-08 2016-03-08 Outpatient Johnson, 2.16.840. 2.16.840.1. 3 [id number] 14:00:00 23:59:00 Jose Francisco Rai [id number]. [id number] [id number] 5.69 2016-03-02 2016-03-02 Outpatient [facility] [id number] Memoria 10:20:00 10:20:00 [facility] 2016-03-02 2016-03-02 [facility] [id number] Memoria 10:20:00 10:20:00 [facility] 2016-02-29 2016-03-01 Outpt Diag nullFlavo [facility] [id number] Memoria 14:59:00 04:59:00 Services r Outpatient 03 l Imaging Denis Soto 2016-02-29 2016-03-01 Outpt Diag nullFlavo [facility] [id number] Memoria 14:59:00 04:59:00 Services r Outpatient 03 l Imaging Denis Soto 2016-02-29 2016-02-29 Outpatient Marsha Lazo28 28 [id number] 09:59:00 23:59:00 [place] 2016-01-20 2016-01-21 Outpt Diag nullFlavo [facility] [id number] Memoria 18:11:00 04:59:00 Services r Outpatient 01 l Imaging Denis Mares 2016-01-20 2016-01-21 Outpt Diag nullFlavo [facility] [id number] Memoria 18:11:00 04:59:00 Services r Outpatient 01 l Imaging Denis [place] 2016-01-20 2016-01-20 Outpatient Marsha Lazo 29 [facility] [id number] 13:11:00 23:59:00 [place] 2015-12-30 2015-12-30 Outpatient nullFlavo [facility] [id number] Memoria 12:50:31 19:25:00 r l Denis 2015-12-30 2015-12-30 Outpatient 2.16.840. 2.16.840.1. 3 [id number] Memoria 12:50:31 19:25:00 [id number] l [id number] 81.2000 Vicente n 00 [facility] 2015-12-30 2015-12-30 Outpatient nullFlavo [facility] [id number] Memoria 12:50:31 19:25:00 r l Denis 2015-11-30 2015-12-01 Outpt Diag nullFlavo [facility] [id number] Memoria 12:58:00 05:59:00 Services r Outpatient 00 l Imaging Denis [place] 2015-11-30 2015-12-01 Outpt Diag nullFlavo [facility] [id number] Memoria 12:58:00 05:59:00 Services r Outpatient 00 l Imaging Denis [place] 2015-11-30 2015-11-30 Outpatient Lazo, Marsha 29 [facility] [id number] 06:58:00 23:59:00 [place] 00 2015-11-19 2015-11-19 Outpatient [facility] [place] [id number] Memoria 10:15:00 10:15:00 02 [facility] 2015-11-19 2015-11-19 Outpatient [facility] [place] [id number] Memoria 10:15:00 10:15:00 [place] 2015-09-02 2015-09-02 [facility] [id number] Memoria 11:30:00 11:30:00 [place] 2015-09-02 2015-09-02 [facility] [id number] Memoria 11:30:00 11:30:00 00 [facility] 2013-12-18 2013-12-18 Outpatient nullFlavo [facility] [id number] Memoria 01:16:00 05:59:00 r Denis [id number] [address] 2013-12-18 2013-12-18 Outpatient nullFlavo [facility] [id number] Memoria 01:16:00 05:59:00 r Denis [id number] [address] 2013-12-17 2013-12-17 Outpatient [facility] 2.16.840. 2.16.840. 1. [id number] 19:16:00 23:59:00 , Yusef [id number]. [id number] [place] [id number] [id number] 50 8948-02-26 2013-12-17 Outpatient nullFlavo [id number] Memoria 19:16:00 19:16:00 r [place] 01 [facility] 2013-12-17 2013-12-17 Outpatient nullFlavo [id number] Memoria 19:16:00 19:16:00 r [place] 01 [facility] 2013-12-02 2013-12-02 Outpatient nullFlavo [id number] Memoria 19:43:00 19:43:00 r [place] 00 [place] 2013-12-02 2013-12-02 Outpatient nullFlavo [id number] Memoria 19:43:00 19:43:00 r [place] 00 [place] Results Test Description Test Time Test Comments Results Result Sourc e Comments PET/CT, CARDIAC 2022-09-26 Reason for PERF REST AND 16:05:00 exam:->angina [facility] : 1955 Sex: F FINAL REPORT PROCEDURE: MYOCARDIAL PERFUSION PET/CT IMAGING (Rest/Stress)CPT CODE: 55706 INDICATION: Evaluation for chest pain CARDIOVASCULAR PROFILE:CAD History: NoneSymptoms: Chest painRisk Factors: Atrial fibrillation, ESRDBMI: 34 STRESS PROTOCOL:Pharmacologic stress was achieved with a 10-second intravenous infusion of regadenoson 0.4 mg. The radiopharmaceutical was administered 30 seconds after the start of the regadenoson infusion. IMAGING PROTOCOL:Limited low-dose CT imaging was performed for attenuation correction. 39.9 mCi of Rb-82 chloride was injected intravenously at rest, and gated PET images were obtained. Then, 39.9 mCi of Rb-82 chloride was injected intravenously at peak stress, and gated PET images were obtained. Image quality is good. REST FINDINGS:HR: 79/minBP: 123/65 mmHgPrelim. EKG: Atrial fibrillation with incomplete RBBB and nonspecific ST changes.Perfusion: Normal.Wall Motion: Normal (LVEF >70%).LV Volume: Normal. STRESS FINDINGS:HR: 96/min (62% of MPHR)BP: 116/70 mmHgPrelim. EKG: No ischemic changes.Symptoms: Dyspnea (treatment not required).Perfusion: Normal.Wall Motion: Normal (LVEF >70%).LV Volume: Not significantly changed from rest. IMPRESSION:1. Normal study.2. Normal myocardial perfusion.3. Normal resting LVEF, which does not deteriorate with pharmacologic stress.4. Normal extracardiac tracer distribution.5. There is no prior study for comparison. Signed: Corbin Casper MDReport Verified Date/Time: 09/26/2022 16:05:42 C METABOLIC PANEL 2022-09-26 06:01:00 Test Item Value Reference Range Interpretation Comme nts SODIUM (BEAKER) (test 140 meq/L 136-145 code = 381) POTASSIUM (BEAKER) 4.8 meq/L 3.5-5.1 Specimen slightly hemolyzed (test code = 379) CHLORIDE (BEAKER) (test 107 meq/L 98-107 code = 382) CO2 (BEAKER) (test code 21 meq/L 22-29 L = 355) BLOOD UREA NITROGEN 22 mg/dL 7-21 H (BEAKER) (test code = 354) CREATININE (BEAKER) 5.15 mg/dL 0.57-1.25 H Specimen slightly hemolyzed (test code = 358) GLUCOSE RANDOM (BEAKER) 97 mg/dL 70-105 (test code = 652) CALCIUM (BEAKER) (test 9.1 mg/dL 8.4-10.2 code = 697) EGFR (BEAKER) (test 9 mL/min/1.73 sq m I nterpretation of eGFR values code = 1092) Stage Descripti on Result G1 Normal or high >=90 G2 Mildly decreased 60-89 G3a Mildly to moderately 45-5 9 G3b Moderately to severely 30- 44 G4 Severly decreased 15-29 G5 Kidney failure <15Repo rted eGFR is based on the CK D-EPI 2020 equation that d oes not use a race coefficien tEstimated GFR is not as accurate as Creatinine Clearance in pr edicting glomerular filt ration rate. Estimated GFR i s not applicable for dialysis will moseley Top Trimmer ID - MARCOSpecimen slightly [id number] 05:55:08 Test Item Value Reference Range Interpretation Comments MAGNESIUM (BEAKER) 1.9 mg/dL 1.6-2.6 Specimen slightly (test code = 627) hemolyzed Top Trimmer ID - [id number] 05:55:08 Test Item Value Reference Range Interpretation Comments PHOSPHORUS (BEAKER) 3.4 mg/dL 2.3-4.7 Specimen slightly (test code = 604) hemolyzed Top Trimmer ID - MARCOCBC W/PLT COUNT & AUTO [id number] 04:43:14 Test Item Value Reference Range Interpretation Comments WHITE BLOOD CELL COUNT 6.7 K/ L 3.5-10.5 (BEAKER) (test code = 775) RED BLOOD CELL COUNT 2.94 M/ L 3.93-5.22 L (BEAKER) (test code = 761) HEMOGLOBIN (BEAKER) 9.1 GM/DL 11.2-15.7 L (test code = 410) HEMATOCRIT (BEAKER) 30.4 % 34.1-44.9 L (test code = 411) MEAN CORPUSCULAR 103 fL 79-95 H Discordant MCV VOLUME (BEAKER) (test result s compared to code = 753) previous result s; clinical correl ation required. MEAN CORPUSCULAR 31.0 pg 25.6-32.2 HEMOGLOBIN (BEAKER) (test code = 751) MEAN CORPUSCULAR 29.9 GM/DL 32.2-35.5 L HEMOGLOBIN CONC (BEAKER) (test code = 752) RED CELL DISTRIBUTION 14.2 % 11.7-14.4 WIDTH (BEAKER) (test code = 412) PLATELET COUNT 84 K/CU MM 150-450 L (BEAKER) (test code = 756) MEAN PLATELET VOLUME 10.3 fL 9.4-12.3 (BEAKER) (test code = 754) NUCLEATED RED BLOOD 0 /100 WBC 0-0 CELLS (BEAKER) (test code = 413) NEUTROPHILS RELATIVE 75 % PERCENT (BEAKER) (test code = 429) LYMPHOCYTES RELATIVE 16 % PERCENT (BEAKER) (test code = 430) MONOCYTES RELATIVE 7 % PERCENT (BEAKER) (test code = 431) EOSINOPHILS RELATIVE 2 % PERCENT (BEAKER) (test code = 432) BASOPHILS RELATIVE 0 % PERCENT (BEAKER) (test code = 437) NEUTROPHILS ABSOLUTE 5.05 K/ L 1.56-6.13 COUNT (BEAKER) (test code = 670) LYMPHOCYTES ABSOLUTE 1.05 K/ L 1.18-3.74 L COUNT (BEAKER) (test code = 414) MONOCYTES ABSOLUTE 0.44 K/ L 0.24-0.36 H COUNT (BEAKER) (test code = 415) EOSINOPHILS ABSOLUTE 0.10 K/ L 0.04-0.36 COUNT (BEAKER) (test code = 416) BASOPHILS ABSOLUTE 0.02 K/ L 0.01-0.08 COUNT (BEAKER) (test code = 417) IMMATURE 0.60 % 0.00-1.00 GRANULOCYTES-RELATIVE PERCENT (BEAKER) (test code = 2801) PROTEIN ELECTROPHORESIS, SERUM WITH REFLEX TO [id number] 16:42:33 Test Item Value Reference Range Interpretation Comments ALBUMIN FRACTION 3.4 gm/dL 3.5-5.5 L (BEAKER) (test code = 405) ALPHA 1 FRACTION 0.4 gm/dL 0.2-0.4 (BEAKER) (test code = 389) ALPHA 2 FRACTION 0.7 gm/dL 0.4-1.0 (BEAKER) (test code = 390) BETA FRACTION 0.6 gm/dL 0.5-1.1 (BEAKER) (test code = 392) GAMMA GLOBULIN 0.8 gm/dL 0.7-1.6 FRACTION (BEAKER) (test code = 391) INTERPRETATION-119 Albumin decreased. This (BEAKER) (test code = may indicate protein 2615) malnutrition or a protein losing state. [id number] Crystal Moore MD (BEAKER) (test code = (electronic signature) 2616) PROTEIN TOTAL SERUM, 6.0 gm/dL 6.0-8.3 SPEP (BEAKER) (test code = 4810) Clinical Consumer Loan Specialist - SFOperator ID - LETICIA BOperator ID - ADMPERIPHERAL BLOOD SMEAR - PATHOLOGIST [id number] 14:33:15 Test Item Value Reference Range Interpretation Comments PERIPHERAL SMR REVIEW Cell counts confirmed. (BEAKER) (test code = There is macrocytic 2640) anemia. Platelets are decreased with no significant platelet clumps or satellitism identified. [id number] Evan Dixon (BEAKER) (test code = Milka 6317) HEPATITIS B SURFACE [id number] 10:29:09 Test Item Value Reference Range Interpretation Comments HEPATITIS B SURFACE ANTIGEN (2) Nonreactive Nonreactive (BEAKER) (test code = 1085) Specimen is considered negative for HBsAg.Transthoracic 2D echo w/ doppler (cw/pw/color)2022-09-25 08:20:07Ejection FractionSLEH ECHO HEARTLAB MKCKESSON CPACSCHI [facility]AT[facility] [id number] 05:41:18 Test Item Value Reference Range Interpretation Comments HEPATITIS C ANTIBODY (BEAKER) Nonreactive Nonreactive (test code = 367) Top Trimmer ID - ANTONIOBASIC METABOLIC [id number] 05:22:16 Test Item Value Reference Range Interpretation Comments SODIUM (BEAKER) 142 meq/L 136-145 (test code = 381) POTASSIUM 4.5 meq/L 3.5-5.1 (BEAKER) (test code = 379) CHLORIDE (BEAKER) 109 meq/L 98-107 H (test code = 382) CO2 (BEAKER) 21 meq/L 22-29 L (test code = 355) BLOOD UREA 37 mg/dL 7-21 H NITROGEN (BEAKER) (test code = 354) CREATININE 8.14 mg/dL 0.57-1.25 H (BEAKER) (test code = 358) GLUCOSE RANDOM 99 mg/dL 70-105 (BEAKER) (test code = 652) CALCIUM (BEAKER) 9.0 mg/dL 8.4-10.2 (test code = 697) EGFR (BEAKER) 5 Interpretatio n of eGFR (test code = mL/min/1.73 values Stage De scription 1092) sq m Result G1 [place] l or high >=90 G2 Mildly decreased 60-89 G3a Mildl y to moderately 45-5 9 G3b Moderately to s everely 30-44 G4 Severl y decreased 15-29 G5 Kidney failure <15Reported eGF R is based on the CKD-EPI 2020 equation that d oes not use a race coefficientEsti mated GFR is not as accur ate as Creatinine Josseline stratton in predicting glom erular filtration rate . Estimated GFR is not appl icable for dialysis patien ts Top Trimmer ID - [id number] 05:21:47 Test Item Value Reference Range Interpretation Comments MAGNESIUM (BEAKER) (test code = 2.0 mg/dL 1.6-2.6 627) Top Trimmer ID - [id number] 05:21:47 Test Item Value Reference Range Interpretation Comments PHOSPHORUS (BEAKER) (test code = 4.8 mg/dL 2.3-4.7 H 604) Top Trimmer ID - EMMANUELCBC W/PLT COUNT & AUTO [id number] 05:05:48 Test Item Value Reference Range Interpretation Comments WHITE BLOOD CELL COUNT (BEAKER) 7.0 K/ L 3.5-10.5 (test code = 775) RED BLOOD CELL COUNT (BEAKER) 3.00 M/ L 3.93-5.22 L (test code = 761) HEMOGLOBIN (BEAKER) (test code = 9.4 GM/DL 11.2-15.7 L 410) HEMATOCRIT (BEAKER) (test code = 32.0 % 34.1-44.9 L 411) MEAN CORPUSCULAR VOLUME (BEAKER) 107 fL 79-95 H (test code = 753) MEAN CORPUSCULAR HEMOGLOBIN 31.3 pg 25.6-32.2 (BEAKER) (test code = 751) MEAN CORPUSCULAR HEMOGLOBIN CONC 29.4 GM/DL 32.2-35.5 L (BEAKER) (test code = 752) RED CELL DISTRIBUTION WIDTH 14.4 % 11.7-14.4 (BEAKER) (test code = 412) PLATELET COUNT (BEAKER) (test code 84 K/CU MM 150-450 L = 756) MEAN PLATELET VOLUME (BEAKER) 10.2 fL 9.4-12.3 (test code = 754) NUCLEATED RED BLOOD CELLS (BEAKER) 0 /100 WBC 0-0 (test code = 413) NEUTROPHILS RELATIVE PERCENT 81 % (BEAKER) (test code = 429) LYMPHOCYTES RELATIVE PERCENT 12 % (BEAKER) (test code = 430) MONOCYTES RELATIVE PERCENT 5 % (BEAKER) (test code = 431) EOSINOPHILS RELATIVE PERCENT 1 % (BEAKER) (test code = 432) BASOPHILS RELATIVE PERCENT 0 % (BEAKER) (test code = 437) NEUTROPHILS ABSOLUTE COUNT 5.69 K/ L 1.56-6.13 (BEAKER) (test code = 670) LYMPHOCYTES ABSOLUTE COUNT 0.84 K/ L 1.18-3.74 L (BEAKER) (test code = 414) MONOCYTES ABSOLUTE COUNT (BEAKER) 0.35 K/ L 0.24-0.36 (test code = 415) EOSINOPHILS ABSOLUTE COUNT 0.08 K/ L 0.04-0.36 (BEAKER) (test code = 416) BASOPHILS ABSOLUTE COUNT (BEAKER) 0.02 K/ L 0.01-0.08 (test code = 417) IMMATURE GRANULOCYTES-RELATIVE 0.60 % 0.00-1.00 PERCENT (BEAKER) (test code = 2801) BASIC METABOLIC [id number] 05:39:02 Test Item Value Reference Range Interpretation Comments SODIUM (BEAKER) 141 meq/L 136-145 (test code = 381) POTASSIUM 5.0 meq/L 3.5-5.1 (BEAKER) (test code = 379) CHLORIDE (BEAKER) 108 meq/L 98-107 H (test code = 382) CO2 (BEAKER) 22 meq/L 22-29 (test code = 355) BLOOD UREA 25 mg/dL 7-21 H NITROGEN (BEAKER) (test code = 354) CREATININE 6.82 mg/dL 0.57-1.25 H (BEAKER) (test code = 358) GLUCOSE RANDOM 102 mg/dL 70-105 (BEAKER) (test code = 652) CALCIUM (BEAKER) 9.3 mg/dL 8.4-10.2 (test code = 697) EGFR (BEAKER) 6 Interpretatio n of eGFR (test code = mL/min/1.73 values Stage De scription 1092) sq m Result G1 [place] l or high >=90 G2 Mildly decreased 60-89 G3a Mildl y to moderately 45-5 9 G3b Moderately to s everely 30-44 G4 Severl y decreased 15-29 G5 Kidney failure <15Reported eGF R is based on the CKD-EPI 2020 equation that d oes not use a race coefficientEsti mated GFR is not as accur ate as Creatinine Josseline viral in predicting glom erular filtration rate . Estimated GFR is not appl icable for dialysis patien ts Top Trimmer ID - JUANITA [id number] 05:34:03 Test Item Value Reference Range Interpretation Comments MAGNESIUM (BEAKER) (test code = 1.9 mg/dL 1.6-2.6 627) Top Trimmer NAIF GRANT [id number] 05:34:03 Test Item Value Reference Range Interpretation Comments PHOSPHORUS (BEAKER) (test code = 5.9 mg/dL 2.3-4.7 H 604) Top Trimmer NAIF GRANT WCBC W/PLT COUNT & AUTO [id number] 04:51:11 Test Item Value Reference Range Interpretation Comments WHITE BLOOD CELL COUNT (BEAKER) 7.5 K/ L 3.5-10.5 (test code = 775) RED BLOOD CELL COUNT (BEAKER) 2.88 M/ L 3.93-5.22 L (test code = 761) HEMOGLOBIN (BEAKER) (test code = 9.2 GM/DL 11.2-15.7 L 410) HEMATOCRIT (BEAKER) (test code = 30.6 % 34.1-44.9 L 411) MEAN CORPUSCULAR VOLUME (BEAKER) 106 fL 79-95 H (test code = 753) MEAN CORPUSCULAR HEMOGLOBIN 31.9 pg 25.6-32.2 (BEAKER) (test code = 751) MEAN CORPUSCULAR HEMOGLOBIN CONC 30.1 GM/DL 32.2-35.5 L (BEAKER) (test code = 752) RED CELL DISTRIBUTION WIDTH 14.3 % 11.7-14.4 (BEAKER) (test code = 412) PLATELET COUNT (BEAKER) (test code 87 K/CU MM 150-450 L = 756) MEAN PLATELET VOLUME (BEAKER) 10.4 fL 9.4-12.3 (test code = 754) NUCLEATED RED BLOOD CELLS (BEAKER) 0 /100 WBC 0-0 (test code = 413) NEUTROPHILS RELATIVE PERCENT 77 % (BEAKER) (test code = 429) LYMPHOCYTES RELATIVE PERCENT 15 % (BEAKER) (test code = 430) MONOCYTES RELATIVE PERCENT 5 % (BEAKER) (test code = 431) EOSINOPHILS RELATIVE PERCENT 1 % (BEAKER) (test code = 432) BASOPHILS RELATIVE PERCENT 0 % (BEAKER) (test code = 437) NEUTROPHILS ABSOLUTE COUNT 5.82 K/ L 1.56-6.13 (BEAKER) (test code = 670) LYMPHOCYTES ABSOLUTE COUNT 1.13 K/ L 1.18-3.74 L (BEAKER) (test code = 414) MONOCYTES ABSOLUTE COUNT (BEAKER) 0.39 K/ L 0.24-0.36 H (test code = 415) EOSINOPHILS ABSOLUTE COUNT 0.10 K/ L 0.04-0.36 (BEAKER) (test code = 416) BASOPHILS ABSOLUTE COUNT (BEAKER) 0.03 K/ L 0.01-0.08 (test code = 417) IMMATURE GRANULOCYTES-RELATIVE 0.70 % 0.00-1.00 PERCENT (DONNY) (test code = 2801) HIGH SENSITIVITY TROPONIN [id number] 18:47:20 Test Item Value Reference Range Interpretation Comments HIGH SENSITIVITY 22 pg/ml See_Comment H [Automated message] TROPONIN I (test code = The system which [id number]) generated this result transmitted ref erence range: <=17. Th e reference range was not used to int erpret this result as normal/abnormal . Top Trimmer ID - LETICIA BThe BOOSTER PUMP OILER STAT High Sensitivity Troponin-I results should be used in conjunction with other diagnostic information such as ECG, clinical observations and information, and patient symptoms to aid in the diagnosis of NM.[id number] 18:35:03 Test Item Value Reference Range Interpretation Comments POTASSIUM (DONNY) (test code = 3.1 meq/L 3.5-5.1 L 379) Top Trimmer ID - LETICIA JUSTIN, CHEST, 1 VIEW, NON [id number] 16:19:00Reason for exam:->pulm edemaShould this be performed at the bedside?->Yes [facility] : 1955 Sex: FFINAL REPORT RAD, CHEST, 1 VIEW, NON DEPT INDICATION: pulm edema COMPARISON: None FINDINGS: Portable frontal view of the chest. IMPRESSION: Support Lines: Dialysis catheter tip overlies the right atrium. Lungs and pleura: Lungs are hypoinflated but otherwise unremarkable. No significant pulmonary edema or pleural effusions. No significant pneumothorax. Heart and mediastinum: Normal contours. Additional findings: None. Signed: Samia Rodriguez MDReport Verified Date/Time: 09/23/2022 16:19:33 [id number] 16:00:35 Test Item Value Reference Range Interpretation Comments THYROID STIMULATING HORMONE 1.121 uIU/mL 0.350-4.940 (BEAKER) (test code = 772) Top Trimmer ID - LETICIA BHIGH SENSITIVITY TROPONIN [id number] 15:45:53 Test Item Value Reference Range Interpretation Comments HIGH SENSITIVITY 23 pg/ml See_Comment H [Automated message] TROPONIN I (test code = The system which [id number]) generated this result transmitted ref erence range: <=17. Th e reference range was not used to int erpret this result as normal/abnormal . Top Trimmer ID - LETICIA BThe BOOSTER PUMP OILER STAT High Sensitivity Troponin-I results should be used in conjunction with other diagnostic information such as ECG, clinical observations and information, and patient symptoms to aid in the diagnosis of NM.B-TYPE NATRIURETIC FACTOR (BNP)2022-09-23 15:45:53 Test Item Value Reference Range Interpretation Comments B-TYPE NATRIURETIC PEPTIDE (BEAKER) 395 pg/mL 0-100 H (test code = 700) Top Trimmer ID - LETICIA BCOMPREHENSIVE METABOLIC [id number] 15:42:17 Test Item Value Reference Range Interpretation Comments TOTAL PROTEIN 6.2 gm/dL 6.0-8.3 (BEAKER) (test code = 770) ALBUMIN (BEAKER) 3.5 g/dL 3.5-5.0 (test code = 1145) ALKALINE 109 U/L 40-150 PHOSPHATASE (BEAKER) (test code = 346) BILIRUBIN TOTAL 1.2 mg/dL 0.2-1.2 (BEAKER) (test code = 377) SODIUM (BEAKER) 141 meq/L 136-145 (test code = 381) POTASSIUM (BEAKER) 3.1 meq/L 3.5-5.1 L (test code = 379) CHLORIDE (BEAKER) 105 meq/L 98-107 (test code = 382) CO2 (BEAKER) (test 25 meq/L 22-29 code = 355) BLOOD UREA 19 mg/dL 7-21 NITROGEN (BEAKER) (test code = 354) CREATININE 5.92 mg/dL 0.57-1.25 H (BEAKER) (test code = 358) GLUCOSE RANDOM 109 mg/dL 70-105 H (BEAKER) (test code = 652) CALCIUM (BEAKER) 9.0 mg/dL 8.4-10.2 (test code = 697) AST (SGOT) 11 U/L 5-34 (BEAKER) (test code = 353) ALT (SGPT) 11 U/L 6-55 (BEAKER) (test code = 347) EGFR (BEAKER) 7 Interpretati on of eGFR (test code = 1092) mL/min/1.[address] age Description sq m Result G1 [place] l or high >=90 G2 Mildly decreased 60-89 G3a Mildl y to moderately 45-5 9 G3b Moderately to s everely 30-44 G4 Severl y decreased 15-29 G5 Kidney failure <15Reported eGF R is based on the CKD-EPI 2020 equation that d oes not use a race coefficientEsti mated GFR is not as accur ate as Creatinine Josseline viral in predicting glom erular filtration rate . Estimated GFR is not appl icable for dialysis patien ts Top Trimmer ID - LETICIA [id number] 15:39:33 Test Item Value Reference Range Interpretation Comments MAGNESIUM (BEAKER) (test code = 1.9 mg/dL 1.6-2.6 627) Top Trimmer ID - LETICIA [id number] 15:39:33 Test Item Value Reference Range Interpretation Comments PHOSPHORUS (BEAKER) (test code = 5.0 mg/dL 2.3-4.7 H 604) Top Trimmer ID - LETICIA BCBC W/PLT COUNT & AUTO [id number] 15:23:08 Test Item Value Reference Range Interpretation Comments WHITE BLOOD CELL COUNT (BEAKER) 5.6 K/ L 3.5-10.5 (test code = 775) RED BLOOD CELL COUNT (BEAKER) 2.85 M/ L 3.93-5.22 L (test code = 761) HEMOGLOBIN (BEAKER) (test code = 8.9 GM/DL 11.2-15.7 L 410) HEMATOCRIT (BEAKER) (test code = 29.9 % 34.1-44.9 L 411) MEAN CORPUSCULAR VOLUME (BEAKER) 105 fL 79-95 H (test code = 753) MEAN CORPUSCULAR HEMOGLOBIN 31.2 pg 25.6-32.2 (BEAKER) (test code = 751) MEAN CORPUSCULAR HEMOGLOBIN CONC 29.8 GM/DL 32.2-35.5 L (BEAKER) (test code = 752) RED CELL DISTRIBUTION WIDTH 14.0 % 11.7-14.4 (BEAKER) (test code = 412) PLATELET COUNT (BEAKER) (test code 67 K/CU MM 150-450 L = 756) MEAN PLATELET VOLUME (BEAKER) 9.6 fL 9.4-12.3 (test code = 754) NUCLEATED RED BLOOD CELLS (BEAKER) 0 /100 WBC 0-0 (test code = 413) NEUTROPHILS RELATIVE PERCENT 76 % (BEAKER) (test code = 429) LYMPHOCYTES RELATIVE PERCENT 15 % (BEAKER) (test code = 430) MONOCYTES RELATIVE PERCENT 7 % (BEAKER) (test code = 431) EOSINOPHILS RELATIVE PERCENT 1 % (BEAKER) (test code = 432) BASOPHILS RELATIVE PERCENT 0 % (BEAKER) (test code = 437) NEUTROPHILS ABSOLUTE COUNT 4.27 K/ L 1.56-6.13 (BEAKER) (test code = 670) LYMPHOCYTES ABSOLUTE COUNT 0.86 K/ L 1.18-3.74 L (BEAKER) (test code = 414) MONOCYTES ABSOLUTE COUNT (BEAKER) 0.37 K/ L 0.24-0.36 H (test code = 415) EOSINOPHILS ABSOLUTE COUNT 0.05 K/ L 0.04-0.36 (BEAKER) (test code = 416) BASOPHILS ABSOLUTE COUNT (BEAKER) 0.02 K/ L 0.01-0.08 (test code = 417) IMMATURE GRANULOCYTES-RELATIVE 0.50 % 0.00-1.00 PERCENT (BEAKER) (test code = 2801) ECG 12 [id number] 22:49:39 Test Item Value Reference Range Interpretation Comments Ventricular rate (test code = 253) QRSD interval (test code = 260) QT interval (test code = 264) QTC interval (test code = 265) QRS axis 1 (test code = 268) T wave axis (test code = 270) EKG impression (test Atrial code = 273) fibrillation-Rightward axis-ST & T wave abnormality, consider inferior ischemia-Abnormal ECG-In automated comparison with ECG of 28-APR-2022 02:20,-QRS axis shifted right[facility] [Presence] in Respiratory specimen by DANIEL with probe [id number] 04:29:38 Test Item Value Reference Range Interpretation Comments SARS-CoV-2 (COVID-19) RNA Not detected [Presence] in Respiratory specimen by DANIEL with probe detection (test code = 74973-9) Whether patient is employed in a Unknown healthcare setting (test code = 69876-0) Whether the patient has symptoms Unknown related to condition of interest (test code = 80185-1) Whether the patient was Unknown hospitalized for condition of interest (test code = 79278-6) Whether the patient was admitted Unknown to intensive care unit (ICU) for condition of interest (test code = 88567-5) Whether patient resides in a Unknown congregate care setting (test code = 02303-0) status (test code = Unknown 43739-9) Date and time of symptom onset Unknown (test code = 81989-5) [facility]athyroid [id number] 17:49:00 Test Item Value Reference Interpretation Comments Range PTH (test code = 146 pg/mL 16-77 H Interpreti ve Guide Intact 2731-8) PTH Calcium-------- --- ----Normal Parathyroid Nor mal NormalHypoparat hyroidism Low or Low Norm al LowHyperparathy roidism Primary Normal or High High Secondary High Normal or Low T ertiary High HighNon-Pa rathyroid Hypercalcemia L ow or Low Normal High GUICHO (test code = FASTING:NO GUICHO) FASTING: NO RAC (test code = Performing RAC) Organization Information: Site ID: RGA Name: [facility] Address: [address] [place] [phone] Director: Yusef Boyce Lab Abnormal Interpretation (test code = 22935-1) [facility] Center[facility] stimulating [id number] 17:49:00 Test Item Value Reference Range Interpretation [...] RAC) Organization Information: Site ID: RGA [facility] Address: [address] [place] [phone] Director: Yusef FlorentinoOhio[facility] CenterVitamin D 25 hydroxy [id number] 17:49:00 Test Item Value Reference Range Interpretation Comments Vitamin D, 82 ng/mL 30-100 Vitamin D Statu s 25-hydroxy (test 25-OH Vitam in D: code = 1988-) Deficiency: < 20 ng/mLInsufficie ncy : 20 [...] please refer to [email or web address] [email or web address] [email or web address] .co m/faq/HAL812 (T his link is being provided for informational/e gini ational purpose s only.) GUICHO (test code = FASTING:NO FASTING: GUICHO) NO RAC (test code = Performing RAC) Organization Information: Site ID: RGA [facility] Address: [address] [place] [phone] Director: Yusef Buttridge [facility] CenterPO [id number] 04:51:00 Test Item Value Reference Range Interpretation Comments POC glucose (test code = 129 mg/dL 65-99 H Ope rator Name: [id number]) Alfred Timmons~Radha ce ID: [id number]~Laura table : HMW Notified center receptionist Interpretation (test Abnormal code = 74406-4) [facility] CenterTransthoracic Echocardiogram Complete, (w Contrast, Strain and 3D if needed)2022-06-26 14:28:07 Test Item Value Reference Interpretation Comments Range RA pressure (test mmHg code = 7682608536) EF (test code = 50 % 54-74 A 1606356711) IVS,d (test code = 0.92 cm 0.6-0.9 A 1683013061) IVS s 2D (test code 1.08 cm = 5434315140) LVPWD,d (test code = 0.93 cm 0.60-1.19 5536326492) LVPW s PLAX (test 1.13 cm code = 8631297559) LV,s (test code = 2.94 cm 9988236414) LVOT Diam,S (test 1.98 cm code = 4656921572) LV BURGESS VOL (test 66.04 ml 46-106 code = 6434496759) LV SYS VOL (test 33.32 ml 14-42 code = 0037922769) MV Peak E Jonathan (test 1.61 m/s code = 7408958105) MV Peak A Jonathan (test 0.58 m/s code = 6960510406) E/A ratio (test code See_Comment A [Autom ated = 7623758378) message] The system which generated this result transmitted reference range : <=0.8. The reference range was not used to interpret this result as normal/abnormal . E wave decelartion See_Comment A [Automat ed time (test code = message] T he 9142936897) system which generated this result transmitted reference range : 200 msec. The reference range was not used to interpret this result as normal/abnormal . LV,d (test code = 3.90 cm 9496363964) IVS/LVPW,2D (test code = 7674155910) LV EF,2D (test code 57.26 % = 3437614635) LV FS Cube 2D (test code = 1711483177) LV FS Teich 2D (test code = 2594599566) LV SV Teich 2D (test 32.73 ml code = 7570168865) LV Vol s Teich PSAX 33.32 ml (test code = 8021704535) LVOT stroke volume 0.46 cm3 (test code = 3147616921) Left Atrium 5.30 cm See_Comment A [Automated Dimension Anterior message] The (test code = system which 0322163288) generated this result transmitted reference range : <=3.8. The reference range was not used to interpret this result as normal/abnormal . LA Vol MOD A4C (test 130.09 ml code = 6967799082) LA area s A4C (test 36.52 cm2 code = 3186449040) LVOT area (test code 3.08 cm2 = 4280408052) LVOT Vmax (test code 0.85 m/s = 2580216213) AoV Mean PG (test See_Comment [Automate d code = 4365334463) message] The system which generated this result transmitted reference range : 20 mmHg. The reference range was not used to interpret this result as normal/abnormal . AoV Peak PG (test mmHg code = 6722089286) AV LVOT peak mmHg gradient (test code = 2965027981) AoV Area, Vmax (test 1.94 cm2 See_Comment [Autom ated code = 2357014090) message] The system which generated this result transmitted reference range : >=1.5. The reference range was not used to interpret this result as normal/abnormal . LVOT VTI (CM) (test 15.00 cm code = 7432420920) AoV Vmax (test code 1.35 m/s = 1484518651) AoV Vmn (test code = 0.82 m/s 0603113022) AoV Area, VTI (test 2.30 cm2 code = 9005130812) LVOT CO (test code = 4.72 l/min 7254866450) LVOT HR for LVOT CO bpm (test code = 0814918887) Velocity Ratio 0.63 m/s (V1/V2) (test code = 4689) MV mean gradient See_Comment [Automated (test code = message] The 0265901829) system which generated this result transmitted reference range : 5 mmHg. The reference range was not used to interpret this result as normal/abnormal . MR peak grad (test mmHg code = 3973815289) MV stenosis pressure 30.12 ms See_Comment [Autom ated 1/2 time (test code message] The = 0820060996) system which generated this result transmitted reference range : <=150. The reference range was not used to interpret this result as normal/abnormal . MV E A ratio (test code = 5936631615) MV valve area p 1/2 7.30 cm2 method (test code = 2332713895) MV VTI Tips (test 0.15 m code = 7850507532) MV Vmax (test code = 0.72 m 1271997927) RVSP (test code = See_Comment A [Automate d 3481504798) message] The system which generated this result transmitted reference range : 40.00 mmHg. The reference range was not used to interpret this result as normal/abnormal . TR pk grad (test mmHg code = 9603724367) TR Vpeak (test code 2.85 m/s = 0086385175) RVSP (TR) (test code mmHg = 3551011748) RVOT Vmax (test code 0.44 m/s = 5886471042) PV Mean Grad (test mmHg code = 9532487315) PV Pk Grad (test See_Comment [Automated code = 0767310796) message] The system which generated this result transmitted reference range : 36 mmHg. The reference range was not used to interpret this result as normal/abnormal . PV VTI (test code = 0.17 m 7126863588) RVOT pk grad (test mmHg code = 1081916144) PV VMAX (test code = 1.05 m/s See_Comment [Autom ated 1718433766) message] The system which generated this result transmitted reference range : <=3. The reference range was not used to interpret this result as normal/abnormal . PV Vmn (test code = 2063164990) Ao Root Diameter 2.95 cm See_Comment [Automated (test code = message] The 6727197459) system which generated this result transmitted reference range : <=3.99. The reference range was not used to interpret this result as normal/abnormal . Ao Root Diameter 2.95 cm (test code = 8396948158) Ascending aorta 2.58 cm (test code = 2848237283) Pred METS R1 (test code = 4567385930) Pred Exer Dur R1 (test code = 5068052297) MV Decel slope (test 15.54 m/s2 code = 3513743930) LVPW pct thck PLAX 20.67 % (test code = 8784471697) LV vol s cube 2D 25.42 ml (test code = 8643900139) LV vol d cube 2D 59.47 ml (test code = 7467923633) LV SV Cube 2D (test 34.05 ml code = 7836637733) IVS pct thck PLAX 17.04 % (test code = 4668713708) Calc MPHR (test code bpm = 0118187645) 85 of MPHR (test code = 3588649015) RVOT VTI (test code 0.08 m = 0245026223) RVOT Vmn (test code 0.30 m/s = 3425944183) RVOT mean grad (test mmHg code = 2803806455) MAX Pred HR (test code = 6708619785) LVOT mean grad (test mmHg code = 1304066143) Aov area Vmn (test 2.31 cm2 code = 0593023492) MV AE ratio (test code = 6520741098) LVOT Vmn (test code = 5860464092) MR Vmax (test code = 4.65 m/s 5979767424) AoV VTI (test code = 0.20 m 9930853308) LVOT VTI (test code 0.15 m = 4022730799) GUICHO (test code = GUICHO) Left Ventricle: [...] artifact. Lab Interpretation Abnormal (test code = 02229-5) [facility] [Presence] in Respiratory specimen by DANIEL with probe [id number] 19:34:22 Test Item Value Reference Range Interpretation Comments SARS-CoV-2 (COVID-19) RNA [Presence] Detected in Respiratory specimen by DANIEL with probe detection (test code = 07496-0) Whether patient is employed in a Unknown healthcare setting (test code = 31976-4) Whether the patient has symptoms Unknown related to condition of interest (test code = 95028-9) Whether the patient was hospitalized Unknown for condition of interest (test code = 74494-6) Whether the patient was admitted to Unknown intensive care unit (ICU) for condition of interest (test code = 03575-9) Whether patient resides in a Unknown congregate care setting (test code = 85746-7) status (test code = Unknown 94293-1) Date and time of symptom onset (test Unknown code = 45094-0) [facility] METABOLIC [id number] 16:39:00 Test Item Value Reference Range Interpretation [...] = 8.8 mg/dL 8.0-10.5 N CA) PROTHROMBIN [id number] 16:33:00 Test Item Value Reference Range Interpretation [...] (to prevent recurrent infar ct). CBC W/AUTO [id number] 16:23:00 Test Item Value Reference Range Interpretation [...] code NO = MDIFF) Hepatitis B surface epuqfmwm6011-20-22 21:36:32 Test Item Value Reference Range Interpretation Comments Hep B S Ab (test code <8.0 See_Comment [Auto mated = 34900-6) message] The system which generated this result transmit yahir reference range : <8.0 mIU/mL. Th e reference range was not used to interpret this result as normal/abnormal . GUICHO (test code = GUICHO) Top Trimmer ID - DB Lab Interpretation Normal (test code = 48170-2) [facility] [id number] 21:36:32 Test Item Value Reference Range Interpretation Comments Hep B S Ab (test code <8.0 See_Comment [Auto mated = 28261-0) message] The system which generated this result transmit yahir reference range : <8.0 mIU/mL. Th e reference range was not used to interpret this result as normal/abnormal . GUICHO (test code = GUICHO) Top Trimmer ID - DB Lab Interpretation Normal (test code = 91688-2) [facility] daaqmtzl8314-87-08 21:36:32 Test Item Value Reference Range Interpretation Comments Hep B S Ab (test code <8.0 See_Comment [Auto mated = 98225-5) message] The system which generated this result transmit yahir reference range : <8.0 mIU/mL. e reference range was not used to interpret this result as normal/abnormal . GUICHO (test code = GUICHO) Top Trimmer ID - DB Lab Interpretation Normal (test code = 52856-4) [facility] [id number] 21:36:32 Test Item Value Reference Range Interpretation Comments HEPATITIS B SURFACE ANTIBODY < mIU/mL <8.0 (BEAKER) (test code = 647) Top Trimmer ID - DBHepatitis B surface yxttgxf3347-80-50 21:24:22 Test Item Value Reference Range Interpretation Comments Hepatitis B surface Nonreactive Nonreactive antigen (test code = 5195-3) GUICHO (test code = GUICHO) Specimen is considered negative for HBsAg. Lab Interpretation (test Normal code = 09122-7) [facility] sszkvbn4313-66-62 21:24:22 Test Item Value Reference Range Interpretation Comments Hepatitis B surface Nonreactive Nonreactive antigen (test code = 5195-3) GUICHO (test code = GUICHO) Specimen is considered negative for HBsAg. Lab Interpretation (test Normal code = 14413-5) [facility] B SURFACE [id number] 21:24:22 Test Item Value Reference Range Interpretation Comments HEPATITIS B SURFACE ANTIGEN (2) Nonreactive Nonreactive (BEAKER) (test code = 2585) Specimen is considered negative for HBsAg.Transthoracic Echocardiogram Complete, (w Contrast, Strain and 3D if needed)2022-04-13 13:23:07 Test Item Value Reference Interpretation Comments Range EF (test code = 66 % 54-74 6563556909) IVS,d (test code = 1.03 cm 0.6-0.9 A 7853858863) LVPWD,d (test code = 1.27 cm 0.60-1.19 A 7161351867) LV,s (test code = 2.56 cm 6503320588) LVOT Diam,S (test 2.01 cm code = 0505678454) LV BURGESS VOL (test 69.20 ml 46-106 code = 5486432530) LV SYS VOL (test 23.74 ml 14-42 code = 0912202865) MV Peak E Jonathan (test 1.20 m/s code = 3723760905) MV Peak A Jonathan (test 0.47 m/s code = 5119345585) E/A ratio (test code See_Comment A [Autom ated = 7053686697) message] The system which generated this result transmitted reference range : <=0.8. The reference range was not used to interpret this result as normal/abnormal . E wave decelartion See_Comment A [Automat ed time (test code = message] T he 9918434610) system which generated this result transmitted reference range : 200 msec. The reference range was not used to interpret this result as normal/abnormal . LV,d (test code = 3.98 cm 1262070167) IVS/LVPW,2D (test code = 8286150934) LV EF,2D (test code 73.32 % = 2507776384) LV FS Cube 2D (test code = 2873180560) LV FS Teich 2D (test code = 5608311398) LV SV Teich 2D (test 45.46 ml code = 0516060413) LV Vol s Teich PSAX 23.74 ml (test code = 3613399942) LVOT stroke volume 0.35 cm3 (test code = 2010547015) Left Atrium 4.52 cm See_Comment A [Automated Dimension Anterior message] The (test code = system which 6009116406) generated this result transmitted reference range : <=3.8. The reference range was not used to interpret this result as normal/abnormal . LA Vol MOD A4C (test 83.62 ml code = 1734650913) LA area s A4C (test 28.59 cm2 code = 6369052334) LA Ao Ratio Mmode (test code = 0016837889) LVOT area (test code 3.17 cm2 = 5341073460) LVOT Vmax (test code 0.62 m/s = 5225896450) AoV Mean PG (test See_Comment [Automate d code = 2335214344) message] The system which generated this result transmitted reference range : 20 mmHg. The reference range was not used to interpret this result as normal/abnormal . AoV Peak PG (test mmHg code = 3394752463) AV LVOT peak mmHg gradient (test code = 1727301468) AoV Area, Vmax (test 2.00 cm2 See_Comment [Autom ated code = 8868744340) message] The system which generated this result transmitted reference range : >=1.5. The reference range was not used to interpret this result as normal/abnormal . LVOT VTI (CM) (test 11.00 cm code = 4389638966) AoV Vmax (test code 0.98 m/s = 0831707696) AoV Vmn (test code = 0.65 m/s 5889664240) AoV Area, VTI (test 2.42 cm2 code = 7536496917) Velocity Ratio 0.63 m/s (V1/V2) (test code = 4689) MR peak grad (test mmHg code = 3630458904) MV stenosis pressure 31.00 ms See_Comment [Autom ated 1/2 time (test code message] The = 3220463461) system which generated this result transmitted reference range : <=150. The reference range was not used to interpret this result as normal/abnormal . MV E A ratio (test code = 3777894431) MV valve area p 1/2 7.10 cm2 method (test code = 4369150581) E prime lat (test code = 5506735996) E katherine sept (test code = 4810133668) RVSP (test code = See_Comment A [Automate d 8541564893) message] The system which generated this result transmitted reference range : 40.00 mmHg. The reference range was not used to interpret this result as normal/abnormal . RA pressure (test mmHg code = 2270262488) TR pk grad (test mmHg code = 0348428606) TR Vpeak (test code 3.51 m/s = 9146800970) RVSP (TR) (test code mmHg = 4658555237) RVOT Vmax (test code 0.46 m/s = 0570629777) PV Pk Grad (test See_Comment [Automated code = 2876167083) message] The system which generated this result transmitted reference range : 36 mmHg. The reference range was not used to interpret this result as normal/abnormal . RVOT pk grad (test mmHg code = 1070642503) PV VMAX (test code = 1.15 m/s See_Comment [Autom ated 8434774703) message] The system which generated this result transmitted reference range : <=3. The reference range was not used to interpret this result as normal/abnormal . Ao root annulus 2.82 cm (test code = 0000381868) Ao Root Diameter 3.23 cm See_Comment [Automated (test code = message] The 4192963018) system which generated this result transmitted reference range : <=3.99. The reference range was not used to interpret this result as normal/abnormal . Ao Root Diameter 3.23 cm (test code = 1027866930) Ascending aorta 3.69 cm (test code = 3158249578) Pred METS R1 (test code = 9334515600) Pred Exer Dur R1 (test code = 9228942635) MV Decel slope (test 11.26 m/s2 code = 1626565833) LV vol s cube 2D 16.83 ml (test code = 5339481974) LV vol d cube 2D 63.08 ml (test code = 3649450096) LV SV Cube 2D (test 46.25 ml code = 8049330434) Calc MPHR (test code bpm = 1305183472) 85 of MPHR (test code = 8955631544) MAX Pred HR (test code = 2008247308) LVOT mean grad (test mmHg code = 9524341829) Aov area Vmn (test 1.92 cm2 code = 0713574480) MV AE ratio (test code = 4654221541) LVOT Vmn (test code = 4610883178) MR Vmax (test code = 4.22 m/s 1096232080) AoV VTI (test code = 0.15 m 5334920995) LVOT VTI (test code 0.11 m = 0838125187) GUICHO (test code = GUICHO) Left Ventricle: [...] tachycardia. Lab Interpretation Abnormal (test code = 16831-0) [facility] [id number] 07:26:00 Test Item Value Reference Interpretation Comments Range Urine culture Proteus dztussy58-0 A Specime n isolate (test cfu/mlThe InformationSpe [facility] code = 85973-8) performance Source: Urin eSpecimen characteristics of Site: Christopher an catch this assay on this isolatewere validated by the Microbiology Laboratory at [facility]. This source has not been approved by the U.S. Food and Drug Administration. The results are not intended to be used as the sole means for clinical diagnosis or patient management. The Microbiology Laboratory is authorized under the clinical Laboratory Improvement Amendments of 1988 (CLIA-88) to perform high complexity testing. Lab Abnormal Interpretation (test code = 67811-6) [facility] RNA [Presence] in Respiratory specimen by DANIEL with probe [id number] 00:41:02 Test Item Value Reference Range Interpretation Comments SARS-CoV-2 (COVID-19) RNA Not detected [Presence] in Respiratory specimen by DANIEL with probe detection (test code = 80599-0) Whether patient is employed in a Unknown healthcare setting (test code = 48942-1) Whether the patient has symptoms Unknown related to condition of interest (test code = 34365-6) Whether the patient was Unknown hospitalized for condition of interest (test code = 50501-9) Whether the patient was admitted Unknown to intensive care unit (ICU) for condition of interest (test code = 16359-8) Whether patient resides in a Unknown congregate care setting (test code = 05760-2) status (test code = Unknown 79553-4) Date and time of symptom onset Unknown (test code = 35832-9) [facility] XR [id number] 10:28:00 [facility] 1955 Sex: F Name: FREDDIE SAUCEDO [facility] : 1955 Age/S: 66 / F [address] Unit #: [id number] Loc: [place] [address] Phys: Mic Aiken MD Acct: [id number] Dis Date: Status: [facility] PHONE #: [phone] Exam Date: 03/08/2022 0950 FAX #: Reason: ERCP EXAMS: CPT: [id number] XR ERCP 21102 Fluoro Time: 33 SEC DAP (Gy m2): [...] Hernandez M.D. CC: Mic Aiken MD; Antonella Carrlilo MD PAGE 1 Signed Report Name: FREDDIE SAUCEDO [place] : 1955 Age/S: 66 / F [address] Unit #: [id number] Loc: [place] [address] Phys: Mic Aiken MD Acct: [id number] Dis Date: Status: REG SDC PHONE #: [phone] Exam Date: 03/08/2022 0950 FAX #: Reason: ERCP EXAMS: CPT: [id number] XR ERCP 95370 Fluoro Time: 33 SEC DAP (Gy m2): Air Kerma (mGy): (Continued) Technologist: Naila Davis, RT(R) Trnscb Date/Time: 03/08/2022 (1028) [email or web address] Orig Print D/T: S: 03/08/2022 (1032) PAGE 2 Signed [id number] 08:51:00 Test Item Value Reference Range Interpretation Comments POTASSIUM (test code = K) 5.1 mmol/L 3.4-5.0 H CBC W/AUTO [id number] 08:15:00 Test Item Value Reference Range Interpretation [...] NO DIFF/SCN CRITERIA = MDIFF) BASIC METABOLIC [id number] 08:08:00 Test Item Value Reference Range Interpretation [...] 9.9 MG/DL 8.5-10.1 N COVID 19 INHOUSE [id number] 14:11:00 Test Item Value Reference Range Interpretation Comments COVID 19 INHOUSE AG NEGATIVE Negative Per manu facturer, (test code = negative result s should [id number]) be treated aspr esumptive and, if inconsi [...] symptoms co nsistent with COVID-19. CBC W/AUTO [id number] 14:00:00 Test Item Value Reference Range Interpretation [...] NT WITH AUTO DIFFERENTI AL. BASIC METABOLIC [id number] 13:32:00 Test Item Value Reference Range Interpretation [...] CA) 10.1 MG/DL 8.5-10.1 N HEPATIC FUNCTION [id number] 13:32:00 Test Item Value Reference Range Interpretation [...] 222 Unit/L 45-117 H code = ALKP) [id number] 13:32:00 Test Item Value Reference Range Interpretation Comments LIPASE (test code = LIP) 109 Unit/L 114-286 L [id number] 18:01:00 Test Item Value Reference Range Interpretation Comments SURGICAL (test code = SR) RUN DATE: 03/01/22 JERSEY Iverson [place] [facility] PAGE 1 RUN TIME: 1801 Specimen Inquiry RUN USER: INTERFACE LIANNA ENT: FREDDIE SAUCEDO LOC: [facility] U #: [id number] AGE/SX: 66/F ROOM: RE02/27/22REG DR: Adam King MD : 57 BED: DIS: STATUS: [facility] TLOC: SPEC #: [id number] RECD: 02/27/22 STATUS: [facility] #: [id number] LUZ: 02/27/22-5 [facility] [address]: Adam King MD ENTERED: 02/27/22 SP TYPE: SURGICAL OTHR DR: Antonella Carrillo MD ORDERED: 78789/2, 11077, 97284, 07785, ANATOMIC SPEC, SPECIMEN TRACK COPIES TO: Antonella Carrillo MD [address] [place] [address] Aadm King MD [address] [place], [place] [address] PROCEDURES: 67611 (02/27/22) 13448 (03/01/22) 78882 (03/01/22) 56623 (03/01/22) SPECIMEN TRACK (02/27/22) TISSUES: A. GASTRIC [...] internal) control is negative (staining performed at [facility]). CONTINUED ON NEXT PAGE RUN DATE: 03/01/22 [facility] PAGE 2 RUN TIME: 1801 Specimen Inquiry RUN USER: INTERFACE SPEC #: [id number] PATIENT: FREDDIE SAUCEDO #[id number] (Continued) ------- GROSS DESCRIPTION A. Antrum and body biopsy. It consists of 4 tissue fragments measuring 2-5 mm. All as A1. B. Distal esophageal biopsy. It consists of 2 tissue fragments measuring 3 mm each. Allas B1. Technical component performed at [place],[address], [place] [address] Unless gross only, the diagnosis is based [...] diagnosis section. ---- Signed SIGNATURE ON FILE DunnObdulio 03/01/22 180 END OF REPORT BASIC METABOLIC [id number] 08:13:00 Test Item Value Reference Range Interpretation [...] MG/DL 8.5-10.1 N - XR CHEST 2 [id number] 13:28:00 [facility] 1955 Sex: F Name: FREDDIE SAUCEDO [place] : 1955 Age/S: 66 / F [address] Unit #: [id number] Loc: [place] [address] Phys: Adam King MD Acct: [id number] Dis Date: Status: [facility] PHONE #: [phone] Exam Date: 02/24/2022 1253 FAX #: Reason: PRE OP EXAMS: CPT: [id number] XR CHEST 2 V 70566 Fluoro Time: DAP (Gy m2): Air Kerma [...] and signed by: Kristian Sidhu M.D. CC: Antonlela Carrillo MD; Adam King MD PAGE 1 Signed Report Name: ZHANG SAUCEDO [place] : 1955 Age/S: 66 / F [address] Unit #: [id number] Loc: [place] [address] Phys: Adam King MD Acct: [id number] Dis Date: Status: PRE SDC PHONE #: [phone] Exam Date: 02/24/2022 1253 FAX #: Reason: PRE OP EXAMS: CPT: [id number] XR CHEST 2 V 23080 Fluoro Time:DAP (Gy m2): Air Kerma (mGy): (Continued) Technologist: Priya Lemos RT (R)(CT) Trnscb Date/Time: 02/24/2022 (4973) [id number] Orig Print D/T: S: 02/24/2022 (1353) PAGE 2 Signed ReportBASIC METABOLIC [id number] 12:55:00 Test Item Value Reference Range Interpretation [...] 10.5 MG/DL 8.5-10.1 H COVID 19 INHOUSE [id number] 12:52:00 Test Item Value Reference Range Interpretation Comments COVID 19 INHOUSE AG NEGATIVE Negative Per manu facturer, (test code = negative result s should [id number]) be treated aspr esumptive and, if inconsi [...] and symptoms co nsistent with COVID-19. PROTHROMBIN [id number] 12:44:00 Test Item Value Reference Range Interpretation [...] (to prevent recurrent infar ct). THROMBOPLASTIN TIME [id number] 12:44:00 Test Item Value Reference Range Interpretation Comments THROMBOPLASTIN TIME PARTIAL 36.2 SECONDS 26-35 H (test code = PTT) CBC W/AUTO [id number] 12:43:00 Test Item Value Reference Range Interpretation [...] in Respiratory specimen by DANIEL with probe wbuonuqcg5563-97-49 23:10:10 Test Item Value Reference Range Interpretation Comments SARS coronavirus RNA [Presence] Not detected in Isolate by DANIEL with probe detection (test code = 05355-4) Whether patient is employed in a No healthcare setting (test code = 21025-9) Whether the patient has symptoms Yes related to condition of interest (test code = 87422-6) Whether the patient was No hospitalized for condition of interest (test code = 45738-8) Whether the patient was admitted No to intensive care unit (ICU) for condition of interest (test code = 46208-0) Whether patient resides in a No congregate care setting (test code = 93014-5) status (test code = No 63961-0) Date and time of symptom onset Unknown (test code = 73653-5) [facility]ULXFXHXC-FkJ-9 (COVID-19) RNA [Presence] in Respiratory specimen by DANIEL with probe aiuhdkhri6942-67-87 23:10:10 Test Item Value Reference Range Interpretation Comments SARS-CoV-2 (COVID-19) RNA Not detected [Presence] in Respiratory specimen by DANIEL with probe detection (test code = 32470-3) Whether patient is employed in a No healthcare setting (test code = 65011-1) Whether the patient has symptoms Yes related to condition of interest (test code = 26081-6) Whether the patient was No hospitalized for condition of interest (test code = 53611-2) Whether the patient was admitted No to intensive care unit (ICU) for condition of interest (test code = 86165-5) Whether patient resides in a No congregate care setting (test code = 19540-3) status (test code = No 73191-9) Date and time of symptom onset Unknown (test code = 00314-1) [facility]ENTERWBXNSKBPJVVX-XcL-3 (COVID-19) RNA [Presence] in Respiratory specimen by DANIEL with probe iwocqdcjz6758-16-88 22:34:30 Test Item Value Reference Range Interpretation Comments SARS-CoV-2 (COVID-19) RNA Not detected Not-Detected [Presence] in Respiratory specimen by DANIEL with probe detection (test code = 16011-0) Whether patient is employed in a healthcare setting (test code = 87935-2) Whether the patient has symptoms related to condition of interest (test code = 63320-7) Patient was hospitalized because of this condition (test code = 34444-7) Whether the patient was admitted to intensive care unit (ICU) for condition of interest (test code = 62213-3) Whether patient resides in a congregate care setting (test code = 87457-8) [facility]) RNA [Presence] in Respiratory specimen by DANIEL with probe mxfuqjsvn8736-45-85 22:35:42 Test Item Value Reference Range Interpretation Comments SARS-CoV-2 (COVID-19) RNA Not detected Not-Detected [Presence] in Respiratory specimen by DANIEL with probe detection (test code = 60858-3) Whether patient is employed in a healthcare setting (test code = 00503-9) Whether the patient has symptoms related to condition of interest (test code = 36722-4) Patient was hospitalized because of this condition (test code = 88133-0) Whether the patient was admitted to intensive care unit (ICU) for condition of interest (test code = 49244-2) Whether patient resides in a congregate care setting (test code = 67975-0) [facility]-CoV-[facility] (COVID-19) RNA [Presence] in Respiratory specimen by DANIEL with probe aolqqakuf2994-07-36 22:46:10 Test Item Value Reference Range Interpretation Comments SARS-CoV-2 (COVID-19) RNA Not detected Not-Detected [Presence] in Respiratory specimen by DANIEL with probe detection (test code = 57908-4) Whether patient is employed in a healthcare setting (test code = 44562-0) Whether the patient has symptoms related to condition of interest (test code = 79755-5) Patient was hospitalized because of this condition (test code = 80720-6) Whether the patient was admitted to intensive care unit (ICU) for condition of interest (test code = 02238-6) Whether patient resides in a congregate care setting (test code = 18495-7) [facility]-CoV-2 (COVID-19) RNA [Presence] in Respiratory specimen by DANIEL with probe qrbvukuzp5148-10-70 01:54:24 Test Item Value Reference Range Interpretation Comments SARS-CoV-2 (COVID-19) RNA Not detected Not-Detected [Presence] in Respiratory specimen by DANIEL with probe detection (test code = 66078-9) Whether patient is employed in a healthcare setting (test code = 34481-0) Whether the patient has symptoms related to condition of interest (test code = 80348-6) Patient was hospitalized because of this condition (test code = 26458-7) Whether the patient was admitted to intensive care unit (ICU) for condition of interest (test code = 13390-8) Whether patient resides in a congregate care setting (test code = 54571-8) [facility] (COVID-19) RNA [Presence] in Respiratory specimen by DANIEL with probe aofqkemxv2305-60-25 21:44:06 Test Item Value Reference Range Interpretation Comments SARS-CoV-2 (COVID-19) RNA Not detected Not-Detected [Presence] in Respiratory specimen by DANIEL with probe detection (test code = 14814-3) Whether patient is employed in a healthcare setting (test code = 74993-0) Whether the patient has symptoms related to condition of interest (test code = 52574-8) Patient was hospitalized because of this condition (test code = 03933-0) Whether the patient was admitted to intensive care unit (ICU) for condition of interest (test code = 22771-4) Whether patient resides in a congregate care setting (test code = 00163-7) [facility]-CoV-2 (COVID-19) RNA [Presence] in Respiratory specimen by DANIEL with probe wqyqyonxi4977-87-66 00:36:59 Test Item Value Reference Range Interpretation Comments SARS-CoV-2 (COVID-19) RNA Not detected Not-Detected [Presence] in Respiratory specimen by DANIEL with probe detection (test code = 46176-5) [facility]-CoV-2 (COVID-19) RNA [Presence] in Respiratory specimen by DANIEL with probe ybohumozy4930-04-88 17:35:35 Test Item Value Reference Range Interpretation Comments SARS-CoV-2 (COVID-19) RNA Not detected Not-Detected [Presence] in Respiratory specimen by DANIEL with probe detection (test code = 36551-9) [facility]-CoV-2 (COVID-19) RNA [Presence] in Respiratory specimen by DANIEL with probe xspcwqqrp3889-30-02 18:03:30 Test Item Value Reference Range Interpretation Comments SARS-CoV-2 (COVID-19) RNA Not detected Not-Detected [Presence] in Respiratory specimen by DANIEL with probe detection (test code = 20559-7) [facility]-CoV-2 (COVID-19) RNA [Presence] in Respiratory specimen by DANIEL with probe fqzpfinez2388-57-33 10:06:03 Test Item Value Reference Range Interpretation Comments SARS-CoV-2 (COVID-19) RNA Not detected Not-Detected [Presence] in Respiratory specimen by DANIEL with probe detection (test code = 73446-4) [facility]-CoV-2 (COVID-19) RNA [Presence] in Respiratory specimen by DANIEL with probe gawxlgyqe2093-62-55 05:11:58 Test Item Value Reference Range Interpretation Comments SARS-CoV-2 (COVID-19) RNA Not detected Not-Detected [Presence] in Respiratory specimen by DANIEL with probe detection (test code = 85636-9) [facility]-CoV-2 (COVID-19) RNA [Presence] in Respiratory specimen by DANIEL with probe tpqusxkzp0769-91-59 03:34:16 Test Item Value Reference Range Interpretation Comments SARS-CoV-2 (COVID-19) RNA Not detected Not-Detected [Presence] in Respiratory specimen by DANIEL with probe detection (test code = 53190-2) [facility]-CoV-2 (COVID-19) RNA [Presence] in Respiratory specimen by DANIEL with probe hleqvnwsf5127-50-65 10:06:41 Test Item Value Reference Range Interpretation Comments SARS-CoV-2 (COVID-19) RNA Not detected Not-Detected [Presence] in Respiratory specimen by DANIEL with probe detection (test code = 13124-9) [facility]14 12:33:00 Test Item Value Reference Range Interpretation Comments Chol (test code = Chol) [address] [facility]JmfkajqPIWOBN8902-84-89 12:33:00 Test Item Value Reference Range Interpretation Comments HDL (test code = HDL) [address] [facility] [facility] HospitalHittwiiNBLRQH1865-96-58 12:33:00 Test Item Value Reference Range Interpretation Comments Trig (test code = Trig) 76 [facility]QkuzyjpNEZVBA0209-82-03 12:33:00 Test Item Value Reference Range Interpretation Comments LDL (Calculated) (test code = LDL 76 (Calculated)) [facility] HospitalFxlgpcjMULBEA8679-50-65 12:33:00 Test Item Value Reference Range Interpretation Comments CHD Risk (test code = CHD Risk) 3.[address] [facility] HospitalToqxpcaCEJUJP0913-01-86 12:33:00 Test Item Value Reference Range Interpretation Comments Non HDL Chol (test code = Non HDL Chol) [address] [facility] HospitalUsdcgvpSDHQOX2795-25-84 12:33:00 Test Item Value Reference Range Interpretation Comments Chol (test code = Chol) [address] [facility] [facility] [facility] HospitalHhuvkfzJYCRFO1282-44-28 12:33:00 Test Item Value Reference Range Interpretation Comments HDL (test code = HDL) [address] [facility] [facility] HospitalVpoluncUYWQQH4098-57-84 12:33:00 Test Item Value Reference Range Interpretation Comments Trig (test code = Trig) [address] [facility] HospitalHjcwysyODTTYE6798-69-56 12:33:00 Test Item Value Reference Range Interpretation Comments LDL (Calculated) (test code = LDL 76 (Calculated)) [facility] HospitalZluriztWSWZYG4191-64-64 12:33:00 Test Item Value Reference Range Interpretation Comments CHD Risk (test code = CHD Risk) 3.[address] [facility] [facility] HospitalHygamogDXNXXE1687-41-73 12:33:00 Test Item Value Reference Range Interpretation Comments Non HDL Chol (test code = Non HDL Chol) [address] [facility] HospitalSnbdytpTCILAA1297-34-68 12:33:00 Test Item Value Reference Range Interpretation Comments Chol (test code = Chol) [address] [facility] [facility] HospitalTprbmzwKHXWTI1301-41-35 12:33:00 Test Item Value Reference Range Interpretation Comments HDL (test code = HDL) [address] [facility] [facility] HospitalOdtsiexNZGEOJ8592-04-49 12:33:00 Test Item Value Reference Range Interpretation Comments Trig (test code = Trig) [address] [facility] HospitalAnnyihcBXIMUV7307-79-59 12:33:00 Test Item Value Reference Range Interpretation Comments LDL (Calculated) (test code = LDL 76 (Calculated)) [facility] HospitalNwzoaawXZYAWW8825-12-27 12:33:00 Test Item Value Reference Range Interpretation Comments CHD Risk (test code = CHD Risk) 3.5 [facility] HospitalCdhsibjYCVJKJ5845-42-93 12:33:00 Test Item Value Reference Range Interpretation Comments Non HDL Chol (test code = Non HDL Chol) [address] [facility] [address] [facility] HospitalWfffhszEDVCQZ7837-77-81 12:33:00 Test Item Value Reference Range Interpretation Comments Chol (test code = Chol) [address] [facility] [address] [facility] HospitalAoxsnryFKXPWC5611-22-36 12:33:00 Test Item Value Reference Range Interpretation Comments Chol (test code = Chol) [address] [facility] HospitalIeswthyGVGBGJ4846-01-86 12:33:00 Test Item Value Reference Range Interpretation Comments HDL (test code = HDL) 37 [place] [address]-10-14 12:33:00 Test Item Value Reference Range Interpretation Comments HDL (test code = HDL) 37 [place] [address]-10-14 12:33:00 Test Item Value Reference Range Interpretation Comments Trig (test code = Trig) 76 [place] [address]-10-14 12:33:00 Test Item Value Reference Range Interpretation Comments LDL (Calculated) (test code = LDL 76 (Calculated)) [place] [address]-10-14 12:33:00 Test Item Value Reference Range Interpretation Comments CHD Risk (test code = CHD Risk) 3.5 [place] [address]-10-14 12:33:00 Test Item Value Reference Range Interpretation Comments Non HDL Chol (test code = Non HDL Chol) 92 [place] [address]-10-14 12:33:00 Test Item Value Reference Range Interpretation Comments Trig (test code = Trig) 76 [place] [address]-10-14 12:33:00 Test Item Value Reference Range Interpretation Comments LDL (Calculated) (test code = LDL 76 (Calculated)) [place] [address]-10-14 12:33:00 Test Item Value Reference Range Interpretation Comments CHD Risk (test code = CHD Risk) 3.5 [place] 782560-10-14 12:33:00 Test Item Value Reference Range Interpretation Comments Non HDL Chol (test code = Non HDL Chol) 92 [facility] [id number] 14:47:00 Test Item Value Reference Range Interpretation Comments Vitamin D, 25-OH, Total (test code = 37 30-100 Vitamin D, 25-OH, Total) [facility] Noom UHNJZ2984-83-09 14:47:00 Test Item Value Reference Range Interpretation Comments U Creat mg/dL (test code = U Creat 114 20-275 mg/dL) [facility] Noom VTDSY6547-86-81 14:47:00 Test Item Value Reference Range Interpretation Comments U Prot/Creat (test code = U Prot/Creat) 430 21-161 [facility] FJXGN0911-72-88 14:47:00 Test Item Value Reference Range Interpretation Comments U Prot/Creat (test code = U 0.430 1 0.021-0.161 Prot/Creat) [facility] Noom [id number] 14:47:00 Test Item Value Reference Range Interpretation Comments U Protein (test code = U Protein) 49 5-24 [place] 767390-08-06 14:47:00 Test Item Value Reference Range Interpretation Comments Glucose Lvl (test code = Glucose Lvl) 103 65-99 [place] 767390-08-06 14:47:00 Test Item Value Reference Range Interpretation Comments BUN (test code = BUN) 24 7-25 [facility] CampusStrategyEyeCONE HE[facility] ANN[facility] PENN HOSPITALUGQTS9263-88-80 14:47:00 Test Item Value Reference Range Interpretation Comments Creatinine Lvl (test code = Creatinine 1.32 0.50-0.99 Lvl) [facility] CampusStrategyEyeCONE [facility] HOSPITALTMKDO9271-60-00 14:47:00 Test Item Value Reference Range Interpretation Comments eGFR NON-AFR. LAO (test code = 43 eGFR NON-AFR. LAO) [facility] [id number] 14:47:00 Test Item Value Reference Range Interpretation Comments eGFR (test code = eGFR 50 ) [facility] FEWZN2076-28-20 14:47:00 Test Item Value Reference Range Interpretation Comments B/C Ratio (test code = B/C Ratio) 18 6-22 [facility] ESVQS2573-96-47 14:47:00 Test Item Value Reference Range Interpretation Comments Sodium Lvl (test code = Sodium Lvl) 138 135-146 [facility] HQBME5580-23-84 14:47:00 Test Item Value Reference Range Interpretation Comments Potassium Lvl (test code = Potassium 4.4 3.5-5.3 Lvl) [facility] QSCBD4296-67-75 14:47:00 Test Item Value Reference Range Interpretation Comments Chloride Lvl (test code = Chloride Lvl) 102 98-110 [facility] [id number] 14:47:00 Test Item Value Reference Range Interpretation Comments CO2 (test code = CO2) 30 20-32 [facility] [id number] 14:47:00 Test Item Value Reference Range Interpretation Comments Calcium Lvl (test code = Calcium Lvl) 9.4 8.6-10.4 [facility] MOJWF3789-24-79 14:47:00 Test Item Value Reference Range Interpretation Comments Phosphorus (test code = Phosphorus) 4.8 2.5-4.5 [facility]2020-08-06 14:47:00 Test Item Value Reference Range Interpretation Comments Albumin Lvl (test code = Albumin Lvl) 3.9 3.6-5.1 [facility] CenterBpqlwfnEMFMMGXGZH6382-83-00 14:47:00 Test Item Value Reference Range Interpretation Comments Plt Count Estimated (test code = DECREASED Plt Count Estimated) [facility] CenterEdkmxsiDRGSYBGAMM1743-79-84 14:47:00 Test Item Value Reference Range Interpretation Comments WBC X 10x3 (test code = WBC X 10x3) 7.2 3.8-10.8 [place] 797490-08-06 14:47:00 Test Item Value Reference Range Interpretation Comments RBC X 10x6 (test code = RBC X 10x6) 3.71 3.80-5.10 [facility] CenterMjjlhcbZUSALIJVJI3905-08-63 14:47:00 Test Item Value Reference Range Interpretation Comments Hgb (test code = Hgb) 10.7 11.7-15.5 [facility] CenterVdiywygEAYBDODCKR6526-65-47 14:47:00 Test Item Value Reference Range Interpretation Comments Hct (test code = Hct) 33.9 35.0-45.0 [facility] CenterPzrfsjdGONHRGWPVX9104-54-89 14:47:00 Test Item Value Reference Range Interpretation Comments MCV (test code = MCV) 91.4 80.0-100.0 [facility] CenterSelshmfCABCUYHFPO4041-87-03 14:47:00 Test Item Value Reference Range Interpretation Comments MCH (test code = MCH) 28.8 pg 27.0-33.0 [facility] CenterIibqgoeJNQNIMBODD8243-24-02 14:47:00 Test Item Value Reference Range Interpretation Comments MCHC (test code = MCHC) 31.6 32.0-36.0 [place] 797490-08-06 14:47:00 Test Item Value Reference Range Interpretation Comments RDW (test code = RDW) 13.9 11.0-15.0 [place] 797490-08-06 14:47:00 Test Item Value Reference Range Interpretation Comments Platelet (test code = Platelet) 110 140-400 [facility] CenterKjfnlvwUQWONNYBKQ7020-66-55 14:47:00 Test Item Value Reference Range Interpretation Comments MPV (test code = MPV) 11.7 7.5-12.5 [facility] CenterPpoduivBPUOWGRGQZ9660-27-85 14:47:00 Test Item Value Reference Range Interpretation Comments Neutrophils # (test code = Neutrophils 5414 9622-1806 #) [facility] HospitalZxwcadrGQJAJJNCDN8626-72-37 14:47:00 Test Item Value Reference Range Interpretation Comments Lymphocytes # (test code = Lymphocytes 1648 591-9515 #) [facility]AleaozgXRMTDCHIRA3152-82-96 14:47:00 Test Item Value Reference Range Interpretation Comments Monocytes # (test code = Monocytes #) 461 200-950 [facility] HospitalMhhnxqvYZJIKJZIFZ7413-51-52 14:47:00 Test Item Value Reference Range Interpretation Comments Eosinophils # (test code = Eosinophils 122 15-500 #) [facility] HospitalUofdlxxWZLVBLXNKW5377-56-03 14:47:00 Test Item Value Reference Range Interpretation Comments Basophils # (test code 50 See_Comment [Aut omated message] The = Basophils #) system which generated this result tra nsmitted reference range : <=200. The reference r edy was not used to int erpret this result as normal/abnormal . [facility] HospitalExyatxwCSWJFMEEUK3820-27-29 14:47:00 Test Item Value Reference Range Interpretation Comments Segs (test code = Segs) 75.2 [facility] CenterIgbaltrXDNALFDKKZ2784-73-54 14:47:00 Test Item Value Reference Range Interpretation Comments Lymphocytes (test code = Lymphocytes) 16.0 [facility] HospitalIndcnghIDTQUYCCPJ0947-55-88 14:47:00 Test Item Value Reference Range Interpretation Comments Monocytes (test code = Monocytes) 6.4 [facility] HospitalYrwmiftWSVQYCTFCR1493-17-06 14:47:00 Test Item Value Reference Range Interpretation Comments Eosinophils (test code = Eosinophils) 1.7 [facility] HospitalPndvanmNFUPXSUZCE2398-37-79 14:47:00 Test Item Value Reference Range Interpretation Comments Basophils (test code = Basophils) 0.7 [facility] HospitalREFER[facility] LAB OOFBIVN5931-02-28 14:47:00 Test Item Value Reference Range Interpretation Comments Result 2 (Urine Culture) See Result Comment (test code = Result 2 (Urine Culture)) [facility] AND [id number] 14:47:00 Test Item Value Reference Range Interpretation Comments UA Color (test code = UA Color) YELLOW [facility] AND [id number] 14:47:00 Test Item Value Reference Range Interpretation Comments UA Turbidity (test code = UA CLOUDY Turbidity) [facility] [id number] 14:47:00 Test Item Value Reference Range Interpretation Comments UA Spec Grav (test code = UA Spec 1.017 1 1.001-1.035 Grav) [facility] [id number] 14:47:00 Test Item Value Reference Range Interpretation Comments UA pH (test code = UA pH) 5.5 1 5.0-8.0 [facility] [id number] 14:47:00 Test Item Value Reference Range Interpretation Comments UA Glucose (test code = UA Glucose) NEGATIVE [facility]CHE[facility] [id number] 14:47:00 Test Item Value Reference Range Interpretation Comments Vitamin D, 25-OH, Total (test code = 37 30-100 Vitamin D, 25-OH, Total) [facility] YGKZL4933-15-54 14:47:00 Test Item Value Reference Range Interpretation Comments UA Bili (test code = UA Bili) NEGATIVE [facility] [id number] 14:47:00 Test Item Value Reference Range Interpretation Comments UA Ketones (test code = UA Ketones) NEGATIVE [facility] GRNXR6023-89-24 14:47:00 Test Item Value Reference Range Interpretation Comments UA Blood (test code = UA Blood) 1+ [facility] [id number] 14:47:00 Test Item Value Reference Range Interpretation Comments UA Protein (test code = UA Protein) 1+ [facility] CUNSC0238-15-12 14:47:00 Test Item Value Reference Range Interpretation Comments UA Nitrite (test code = UA Nitrite) POSITIVE [facility] [id number] 14:47:00 Test Item Value Reference Range Interpretation Comments UA Leuk Est (test code = UA Leuk Est) 2+ [facility] [id number] 14:47:00 Test Item Value Reference Range Interpretation Comments UA WBC (test code = UA WBC) > OR = 60 [facility] HMPCB6648-30-02 14:47:00 Test Item Value Reference Range Interpretation Comments UA RBC (test code = UA RBC) 0-2 [facility] QDZNU8152-13-64 14:47:00 Test Item Value Reference Range Interpretation Comments UA Sq Epi (test code = UA Sq Epi) NONE SEEN [facility] [id number] 14:47:00 Test Item Value Reference Range Interpretation Comments UA Bacteria (test code = UA Bacteria) MANY [facility]2020-08-06 14:47:00 Test Item Value Reference Range Interpretation Comments U Creat mg/dL (test code = U Creat 114 20-275 mg/dL) [facility] AND TKHVY1899-74-25 14:47:00 Test Item Value Reference Range Interpretation Comments UA Hyal Cast (test code = UA Hyal NONE SEEN Cast) [facility] AND [id number] 14:47:00 Test Item Value Reference Range Interpretation Comments UA Reflex (test code CULTURE INDICATED - = UA Reflex) RESULTS TO FOLLOW [facility]2020-08-06 14:47:00 Test Item Value Reference Range Interpretation Comments U Creat mg/dL (test code = U Creat 114 20-275 mg/dL) [facility]2020-08-06 14:47:00 Test Item Value Reference Range Interpretation Comments U Alb (test code = U Alb) 16.7 [place] 276800-08-06 14:47:00 Test Item Value Reference Range Interpretation Comments U Alb/Crea (test code = U Alb/Crea) 146 [facility]2020-08-06 14:47:00 Test Item Value Reference Range Interpretation Comments U Prot/Creat (test code = U Prot/Creat) 430 21-161 [facility]2020-08-06 14:47:00 Test Item Value Reference Range Interpretation Comments U Prot/Creat (test code = U 0.430 1 0.021-0.161 Prot/Creat) [facility]2020-08-06 14:47:00 Test Item Value Reference Range Interpretation Comments U Protein (test code = U Protein) 49 5-24 [place] 767390-08-06 14:47:00 Test Item Value Reference Range Interpretation Comments Glucose Lvl (test code = Glucose Lvl) 103 65-99 [place] 767390-08-06 14:47:00 Test Item Value Reference Range Interpretation Comments BUN (test code = BUN) 24 7-25 [place] 767390-08-06 14:47:00 Test Item Value Reference Range Interpretation Comments Creatinine Lvl (test code = Creatinine 1.32 0.50-0.99 Lvl) [place] 767390-08-06 14:47:00 Test Item Value Reference Range Interpretation Comments eGFR NON-AFR. LAO (test code = 43 eGFR NON-AFR. LAO) [place] 767390-08-06 14:47:00 Test Item Value Reference Range Interpretation Comments eGFR (test code = eGFR 50 ) [place] 767390-08-06 14:47:00 Test Item Value Reference Range Interpretation Comments B/C Ratio (test code = B/C Ratio) 18 6-22 [place] 767390-08-06 14:47:00 Test Item Value Reference Range Interpretation Comments Sodium Lvl (test code = Sodium Lvl) 138 135-146 [place] 767390-08-06 14:47:00 Test Item Value Reference Range Interpretation Comments Potassium Lvl (test code = Potassium 4.4 3.5-5.3 Lvl) [facility]2020-08-06 14:47:00 Test Item Value Reference Range Interpretation Comments Chloride Lvl (test code = Chloride Lvl) 102 98-110 [place] 767390-08-06 14:47:00 Test Item Value Reference Range Interpretation Comments CO2 (test code = CO2) 30 20-32 [place] 767390-08-06 14:47:00 Test Item Value Reference Range Interpretation Comments Calcium Lvl (test code = Calcium Lvl) 9.4 8.6-10.4 [place] 767390-08-06 14:47:00 Test Item Value Reference Range Interpretation Comments Phosphorus (test code = Phosphorus) 4.8 2.5-4.5 [place] 767390-08-06 14:47:00 Test Item Value Reference Range Interpretation Comments Albumin Lvl (test code = Albumin Lvl) 3.9 3.6-5.1 [place] 797490-08-06 14:47:00 Test Item Value Reference Range Interpretation Comments Plt Count Estimated (test code = DECREASED Plt Count Estimated) [place] 797490-08-06 14:47:00 Test Item Value Reference Range Interpretation Comments WBC X 10x3 (test code = WBC X 10x3) 7.2 3.8-10.8 [place] [address]-08-06 14:47:00 Test Item Value Reference Range Interpretation Comments RBC X 10x6 (test code = RBC X 10x6) 3.71 3.80-5.10 [place] 797490-08-06 14:47:00 Test Item Value Reference Range Interpretation Comments Hgb (test code = Hgb) 10.7 11.7-15.5 [place] [address]-08-06 14:47:00 Test Item Value Reference Range Interpretation Comments Hct (test code = Hct) 33.9 35.0-45.0 [facility] CenterAkdrjcaQPYVZCVDAU6888-91-84 14:47:00 Test Item Value Reference Range Interpretation Comments MCV (test code = MCV) 91.4 80.0-100.0 [place] [address]-08-06 14:47:00 Test Item Value Reference Range Interpretation Comments MCH (test code = MCH) 28.8 pg 27.0-33.0 [facility] CenterWlctjgtARACPMREGQ1867-55-10 14:47:00 Test Item Value Reference Range Interpretation Comments MCHC (test code = MCHC) 31.6 32.0-36.0 [place] 797490-08-06 14:47:00 Test Item Value Reference Range Interpretation Comments RDW (test code = RDW) 13.9 11.0-15.0 [facility] CenterZzrhkpgKPJMXPOIRF7617-93-33 14:47:00 Test Item Value Reference Range Interpretation Comments Platelet (test code = Platelet) 110 140-400 [facility] CenterYjocxanVZQZGIOHFH4831-19-23 14:47:00 Test Item Value Reference Range Interpretation Comments MPV (test code = MPV) 11.7 7.5-12.5 [facility] CenterFpbeulfUPDKSUXNGC8847-68-59 14:47:00 Test Item Value Reference Range Interpretation Comments Neutrophils # (test code = Neutrophils 5414 8280-9293 #) [facility] CenterQhgenjrCOQFSCFBBE3759-95-54 14:47:00 Test Item Value Reference Range Interpretation Comments Lymphocytes # (test code = Lymphocytes 4809 945-1048 #) [facility] CenterFispohvSZANNCRRKW6791-31-17 14:47:00 Test Item Value Reference Range Interpretation Comments Monocytes # (test code = Monocytes #) 461 200-950 [facility] CenterFdthhqePOSDMPIGVL7181-60-34 14:47:00 Test Item Value Reference Range Interpretation Comments Eosinophils # (test code = Eosinophils 122 15-500 #) [facility] CampusNssvrloOIIIKRRSKT9973-66-87 14:47:00 Test Item Value Reference Range Interpretation Comments Basophils # (test code 50 See_Comment [Aut omated message] The = Basophils #) system which generated this result tra nsmitted reference range : <=200. The reference r edy was not used to int erpret this result as normal/abnormal . [facility]AwfaucaQQADDOFAUL1588-55-14 14:47:00 Test Item Value Reference Range Interpretation Comments Segs (test code = Segs) 75.2 [facility] HospitalKbejgvjJUUHYGUTLP6603-72-77 14:47:00 Test Item Value Reference Range Interpretation Comments Lymphocytes (test code = Lymphocytes) 16.0 [facility]JuknzhdAKCUOWPXZP4151-53-62 14:47:00 Test Item Value Reference Range Interpretation Comments Monocytes (test code = Monocytes) 6.4 [facility] HospitalQxgvupqHEGCXSFTWV5402-04-87 14:47:00 Test Item Value Reference Range Interpretation Comments Eosinophils (test code = Eosinophils) 1.7 [facility] HospitalKipthyuPBMDSJDXIU4820-15-54 14:47:00 Test Item Value Reference Range Interpretation Comments Basophils (test code = Basophils) 0.7 [facility] [id number] 14:47:00 Test Item Value Reference Range Interpretation Comments Result 2 (Urine Culture) See Result Comment (test code = Result 2 (Urine Culture)) [facility] AND [id number] 14:47:00 Test Item Value Reference Range Interpretation Comments UA Color (test code = UA Color) YELLOW [facility] AND [id number] 14:47:00 Test Item Value Reference Range Interpretation Comments UA Turbidity (test code = UA CLOUDY Turbidity) [facility] AND [id number] 14:47:00 Test Item Value Reference Range Interpretation Comments UA Spec Grav (test code = UA Spec 1.017 1 1.001-1.035 Grav) [facility] AND [id number] 14:47:00 Test Item Value Reference Range Interpretation Comments UA pH (test code = UA pH) 5.5 1 5.0-8.0 [facility] AND [id number] 14:47:00 Test Item Value Reference Range Interpretation Comments UA Glucose (test code = UA Glucose) NEGATIVE [facility] AND [id number] 14:47:00 Test Item Value Reference Range Interpretation Comments UA Bili (test code = UA Bili) [facility] [id number] 14:47:00 Test Item Value Reference Range Interpretation Comments UA Ketones (test code = UA Ketones) NEGATIVE [facility] [id number] 14:47:00 Test Item Value Reference Range Interpretation Comments UA Blood (test code = UA Blood) 1+ [facility] [id number] 14:47:00 Test Item Value Reference Range Interpretation Comments UA Protein (test code = UA Protein) 1+ [facility] [id number] 14:47:00 Test Item Value Reference Range Interpretation Comments UA Nitrite (test code = UA Nitrite) POSITIVE [facility] [id number] 14:47:00 Test Item Value Reference Range Interpretation Comments UA Leuk Est (test code = UA Leuk Est) 2+ [facility] [id number] 14:47:00 Test Item Value Reference Range Interpretation Comments UA WBC (test code = UA WBC) > OR = 60 [facility] [id number] 14:47:00 Test Item Value Reference Range Interpretation Comments UA RBC (test code = UA RBC) 0-2 [facility] [id number] 14:47:00 Test Item Value Reference Range Interpretation Comments UA Sq Epi (test code = UA Sq Epi) NONE [facility]EN [facility] [id number] 14:47:00 Test Item Value Reference Range Interpretation Comments UA Bacteria (test code = UA Bacteria) MANY [facility] [id number] 14:47:00 Test Item Value Reference Range Interpretation Comments UA Hyal Cast (test code = UA Hyal NONE SEEN Cast) [facility] [id number] 14:47:00 Test Item Value Reference Range Interpretation Comments UA Reflex (test code CULTURE INDICATED - = UA Reflex) RESULTS TO FOLLOW [facility] [id number] 14:47:00 Test Item Value Reference Range Interpretation Comments U Creat mg/dL (test code = U Creat 114 20-275 mg/dL) [facility] [id number] 14:47:00 Test Item Value Reference Range Interpretation Comments U Alb (test code = U Alb) 16.7 [facility] [id number] 14:47:00 Test Item Value Reference Range Interpretation Comments U Alb/Crea (test code = U Alb/Crea) 146 [facility] [id number] 14:47:00 Test Item Value Reference Range Interpretation Comments Vitamin D, 25-OH, Total (test code = 37 30-100 Vitamin D, 25-OH, Total) [facility] [id number] 14:47:00 Test Item Value Reference Range Interpretation Comments U Creat mg/dL (test code = U Creat 114 20-275 mg/dL) [facility]2020-08-06 14:47:00 Test Item Value Reference Range Interpretation Comments U Prot/Creat (test code = U Prot/Creat) 430 21-161 [facility]2020-08-06 14:47:00 Test Item Value Reference Range Interpretation Comments U Prot/Creat (test code = U 0.430 1 0.021-0.161 Prot/Creat) [facility]2020-08-06 14:47:00 Test Item Value Reference Range Interpretation Comments U Protein (test code = U Protein) 49 5-24 [place] 767390-08-06 14:47:00 Test Item Value Reference Range Interpretation Comments Glucose Lvl (test code = Glucose Lvl) 103 65-99 [facility]2020-08-06 14:47:00 Test Item Value Reference Range Interpretation Comments BUN (test code = BUN) 24 7-25 [facility]2020-08-06 14:47:00 Test Item Value Reference Range Interpretation Comments Creatinine Lvl (test code = Creatinine 1.32 0.50-0.99 Lvl) [facility]2020-08-06 14:47:00 Test Item Value Reference Range Interpretation Comments eGFR NON-AFR. LAO (test code = 43 eGFR NON-AFR. LAO) [facility]2020-08-06 14:47:00 Test Item Value Reference Range Interpretation Comments eGFR (test code = eGFR 50 ) [place]67390-08-06 14:47:00 Test Item Value Reference Range Interpretation Comments B/C Ratio (test code = B/C Ratio) 18 6-22 [place] 767390-08-06 14:47:00 Test Item Value Reference Range Interpretation Comments Sodium Lvl (test code = Sodium Lvl) 138 135-146 [place] 767390-08-06 14:47:00 Test Item Value Reference Range Interpretation Comments Potassium Lvl (test code = Potassium 4.4 3.5-5.3 Lvl) [place]67390-08-06 14:47:00 Test Item Value Reference Range Interpretation Comments Chloride Lvl (test code = Chloride Lvl) 102 98-110 [place] 767390-08-06 14:47:00 Test Item Value Reference Range Interpretation Comments CO2 (test code = CO2) 30 20-32 [place] 767390-08-06 14:47:00 Test Item Value Reference Range Interpretation Comments Calcium Lvl (test code = Calcium Lvl) 9.4 8.6-10.4 [place] 767390-08-06 14:47:00 Test Item Value Reference Range Interpretation Comments Phosphorus (test code = Phosphorus) 4.8 2.5-4.5 [place] 767390-08-06 14:47:00 Test Item Value Reference Range Interpretation Comments Albumin Lvl (test code = Albumin Lvl) 3.9 3.6-5.1 [place] 797490-08-06 14:47:00 Test Item Value Reference Range Interpretation Comments Plt Count Estimated (test code = DECREASED Plt Count Estimated) [place] 797490-08-06 14:47:00 Test Item Value Reference Range Interpretation Comments WBC X 10x3 (test code = WBC X 10x3) 7.2 3.8-10.8 [place] [address]-08-06 14:47:00 Test Item Value Reference Range Interpretation Comments RBC X 10x6 (test code = RBC X 10x6) 3.71 3.80-5.10 [place] [address]-08-06 14:47:00 Test Item Value Reference Range Interpretation Comments Hgb (test code = Hgb) 10.7 11.7-15.5 [place] [address]-08-06 14:47:00 Test Item Value Reference Range Interpretation Comments Hct (test code = Hct) 33.9 35.0-45.0 [place] [address]-08-06 14:47:00 Test Item Value Reference Range Interpretation Comments MCV (test code = MCV) 91.4 80.0-100.0 [facility] CenterAaciilwPKADIGSSOV5873-79-56 14:47:00 Test Item Value Reference Range Interpretation Comments MCH (test code = MCH) 28.8 pg 27.0-33.0 [facility] CenterZmgwjxqRVSVERZVIH0773-14-58 14:47:00 Test Item Value Reference Range Interpretation Comments MCHC (test code = MCHC) 31.6 32.0-36.0 [facility] CenterTeqogzcZCVFRIPEFI5982-53-87 14:47:00 Test Item Value Reference Range Interpretation Comments RDW (test code = RDW) 13.9 11.0-15.0 [facility] CenterPdugmaiRGNVRWHVWJ9349-30-84 14:47:00 Test Item Value Reference Range Interpretation Comments Platelet (test code = Platelet) 110 140-400 [facility] CenterKfvozpzYZMSEVKUFT0303-56-71 14:47:00 Test Item Value Reference Range Interpretation Comments MPV (test code = MPV) 11.7 7.5-12.5 [facility] CenterScysvqxBAHDXZCBPS5250-15-77 14:47:00 Test Item Value Reference Range Interpretation Comments Neutrophils # (test code = Neutrophils 5414 5293-6847 #) [facility] CenterXgwlwjtQKNTLLHDMX4466-83-41 14:47:00 Test Item Value Reference Range Interpretation Comments Lymphocytes # (test code = Lymphocytes 4814 901-5918 #) [facility] CenterAajbkvfVAHGCEFNIN9073-75-42 14:47:00 Test Item Value Reference Range Interpretation Comments Monocytes # (test code = Monocytes #) 461 200-950 [facility] CenterAknlhsmMTRQUDADTK3699-51-14 14:47:00 Test Item Value Reference Range Interpretation Comments Eosinophils # (test code = Eosinophils 122 15-500 #) [facility] CenterKjwqtujFSFYSKXHPA3985-18-22 14:47:00 Test Item Value Reference Range Interpretation Comments Basophils # (test code 50 See_Comment [Aut omated message] The = Basophils #) system which generated this result tra nsmitted reference range : <=200. The reference r edy was not used to int erpret this result as normal/abnormal . [facility] CenterTcrdqusBRWOMTQUUN8617-27-10 14:47:00 Test Item Value Reference Range Interpretation Comments Segs (test code = Segs) 75.2 [facility] CenterAeirohdODHAERQTXM7382-94-66 14:47:00 Test Item Value Reference Range Interpretation Comments Lymphocytes (test code = Lymphocytes) 16.0 [facility]CkrozcuQWJTHJTKUC6956-50-40 14:47:00 Test Item Value Reference Range Interpretation Comments Monocytes (test code = Monocytes) 6.4 [facility] HospitalUrqdnrfITVJFXEORU4880-56-97 14:47:00 Test Item Value Reference Range Interpretation Comments Eosinophils (test code = Eosinophils) 1.7 [facility] HospitalGmbxmtrYDOWRYDSVL6372-83-19 14:47:00 Test Item Value Reference Range Interpretation Comments Basophils (test code = Basophils) 0.7 [facility] [id number] 14:47:00 Test Item Value Reference Range Interpretation Comments Result 2 (Urine Culture) See Result Comment (test code = Result 2 (Urine Culture)) [facility] AND [id number] 14:47:00 Test Item Value Reference Range Interpretation Comments UA Color (test code = UA Color) YELLOW [facility] AND [id number] 14:47:00 Test Item Value Reference Range Interpretation Comments UA Turbidity (test code = UA CLOUDY Turbidity) [facility] AND [id number] 14:47:00 Test Item Value Reference Range Interpretation Comments UA Spec Grav (test code = UA Spec 1.017 1 1.001-1.035 Grav) [facility] AND [id number] 14:47:00 Test Item Value Reference Range Interpretation Comments UA pH (test code = UA pH) 5.5 1 5.0-8.0 [facility] AND [id number] 14:47:00 Test Item Value Reference Range Interpretation Comments UA Glucose (test code = UA Glucose) NEGATIVE [facility] AND [id number] 14:47:00 Test Item Value Reference Range Interpretation Comments UA Bili (test code = UA Bili) NEGATIVE [facility] AND [id number] 14:47:00 Test Item Value Reference Range Interpretation Comments UA Ketones (test code = UA Ketones) NEGATIVE [facility] AND [id number] 14:47:00 Test Item Value Reference Range Interpretation Comments UA Blood (test code = UA Blood) 1+ [facility] AND [id number] 14:47:00 Test Item Value Reference Range Interpretation Comments UA Protein (test code = UA Protein) 1+ [facility] [id number] 14:47:00 Test Item Value Reference Range Interpretation Comments UA Nitrite (test code = UA Nitrite) POSITIVE [facility] [id number] 14:47:00 Test Item Value Reference Range Interpretation Comments UA Leuk Est (test code = UA Leuk Est) 2+ [facility] [id number] 14:47:00 Test Item Value Reference Range Interpretation Comments UA WBC (test code = UA WBC) > OR = 60 [facility] [id number] 14:47:00 Test Item Value Reference Range Interpretation Comments UA RBC (test code = UA RBC) 0-2 [facility] [id number] 14:47:00 Test Item Value Reference Range Interpretation Comments UA Sq Epi (test code = UA Sq Epi) NONE SEEN [facility]annJE[facility] [id number] 14:47:00 Test Item Value Reference Range Interpretation Comments UA Bacteria (test code = UA Bacteria) MANY [facility]annJE[facility] AND [id number] 14:47:00 Test Item Value Reference Range Interpretation Comments UA Hyal Cast (test code = UA Hyal NONE SEEN Cast) [facility] AND [id number] 14:47:00 Test Item Value Reference Range Interpretation Comments UA Reflex (test code CULTURE INDICATED - = UA Reflex) RESULTS TO FOLLOW [facility] [id number] 14:47:00 Test Item Value Reference Range Interpretation Comments U Creat mg/dL (test code = U Creat 114 20-275 mg/dL) [facility] [id number] 14:47:00 Test Item Value Reference Range Interpretation Comments U Alb (test code = U Alb) 16.7 [facility] [id number] 14:47:00 Test Item Value Reference Range Interpretation Comments U Alb/Crea (test code = U Alb/Crea) 146 [facility]CHE[facility] [id number] 14:47:00 Test Item Value Reference Range Interpretation Comments Vitamin D, 25-OH, Total (test code = 37 30-100 Vitamin D, 25-OH, Total) [facility]CHE[facility] [id number] 14:47:00 Test Item Value Reference Range Interpretation Comments U Creat mg/dL (test code = U Creat 114 20-275 mg/dL) [facility]2020-08-06 14:47:00 Test Item Value Reference Range Interpretation Comments U Prot/Creat (test code = U Prot/Creat) 430 21-161 [place] 767390-08-06 14:47:00 Test Item Value Reference Range Interpretation Comments U Prot/Creat (test code = U 0.430 1 0.021-0.161 Prot/Creat) [place] 767390-08-06 14:47:00 Test Item Value Reference Range Interpretation Comments U Protein (test code = U Protein) 49 5-24 [place] 767390-08-06 14:47:00 Test Item Value Reference Range Interpretation Comments Glucose Lvl (test code = Glucose Lvl) 103 65-99 [place] 767390-08-06 14:47:00 Test Item Value Reference Range Interpretation Comments BUN (test code = BUN) 24 7-25 [place] 767390-08-06 14:47:00 Test Item Value Reference Range Interpretation Comments Creatinine Lvl (test code = Creatinine 1.32 0.50-0.99 Lvl) [place]67390-08-06 14:47:00 Test Item Value Reference Range Interpretation Comments eGFR NON-AFR. LAO (test code = 43 eGFR NON-AFR. LAO) [facility]2020-08-06 14:47:00 Test Item Value Reference Range Interpretation Comments eGFR (test code = eGFR 50 ) [place] 767390-08-06 14:47:00 Test Item Value Reference Range Interpretation Comments B/C Ratio (test code = B/C Ratio) 18 6-22 [place] 767390-08-06 14:47:00 Test Item Value Reference Range Interpretation Comments Sodium Lvl (test code = Sodium Lvl) 138 135-146 [place] 767390-08-06 14:47:00 Test Item Value Reference Range Interpretation Comments Potassium Lvl (test code = Potassium 4.4 3.5-5.3 Lvl) [place] 767390-08-06 14:47:00 Test Item Value Reference Range Interpretation Comments Chloride Lvl (test code = Chloride Lvl) 102 98-110 [place] 767390-08-06 14:47:00 Test Item Value Reference Range Interpretation Comments CO2 (test code = CO2) 30 20-32 [facility]2020-08-06 14:47:00 Test Item Value Reference Range Interpretation Comments Calcium Lvl (test code = Calcium Lvl) 9.4 8.6-10.4 [place] 767390-08-06 14:47:00 Test Item Value Reference Range Interpretation Comments Phosphorus (test code = Phosphorus) 4.8 2.5-4.5 [place] 767390-08-06 14:47:00 Test Item Value Reference Range Interpretation Comments Albumin Lvl (test code = Albumin Lvl) 3.9 3.6-5.1 [place] 797490-08-06 14:47:00 Test Item Value Reference Range Interpretation Comments Plt Count Estimated (test code = DECREASED Plt Count Estimated) [place] 797490-08-06 14:47:00 Test Item Value Reference Range Interpretation Comments WBC X 10x3 (test code = WBC X 10x3) 7.2 3.8-10.8 [place] 797490-08-06 14:47:00 Test Item Value Reference Range Interpretation Comments RBC X 10x6 (test code = RBC X 10x6) 3.71 3.80-5.10 [place] 797490-08-06 14:47:00 Test Item Value Reference Range Interpretation Comments Hgb (test code = Hgb) 10.7 11.7-15.5 [facility] CenterBvcoaqxUIHKPYOCFL1178-53-51 14:47:00 Test Item Value Reference Range Interpretation Comments Hct (test code = Hct) 33.9 35.0-45.0 [place] 797490-08-06 14:47:00 Test Item Value Reference Range Interpretation Comments MCV (test code = MCV) 91.4 80.0-100.0 [place] 797490-08-06 14:47:00 Test Item Value Reference Range Interpretation Comments MCH (test code = MCH) 28.8 pg 27.0-33.0 [place] 797490-08-06 14:47:00 Test Item Value Reference Range Interpretation Comments MCHC (test code = MCHC) 31.6 32.0-36.0 [place] 797490-08-06 14:47:00 Test Item Value Reference Range Interpretation Comments RDW (test code = RDW) 13.9 11.0-15.0 [facility] CenterAocidhrYXGWMCINTJ6189-32-25 14:47:00 Test Item Value Reference Range Interpretation Comments Platelet (test code = Platelet) 110 140-400 [facility] CenterWrfcaqtTOIETZZZMY7791-75-32 14:47:00 Test Item Value Reference Range Interpretation Comments MPV (test code = MPV) 11.7 7.5-12.5 [facility] CenterErlefdtAKQIAWSQNX8480-48-14 14:47:00 Test Item Value Reference Range Interpretation Comments Neutrophils # (test code = Neutrophils 5414 8230-7604 #) [facility] CenterPnzaobdCZCBNDOILW0094-33-09 14:47:00 Test Item Value Reference Range Interpretation Comments Lymphocytes # (test code = Lymphocytes 6962 275-1961 #) [facility] CenterZmlqdnyCKRYQMYEXB1745-36-58 14:47:00 Test Item Value Reference Range Interpretation Comments Monocytes # (test code = Monocytes #) 461 200-950 [facility] CenterTzcyhonREWWQCBSOW2597-23-51 14:47:00 Test Item Value Reference Range Interpretation Comments Eosinophils # (test code = Eosinophils 122 15-500 #) [facility] CenterPydanrmKQKYOHEPKV1457-17-70 14:47:00 Test Item Value Reference Range Interpretation Comments Basophils # (test code 50 See_Comment [Aut omated message] The = Basophils #) system which generated this result tra nsmitted reference range : <=200. The reference r edy was not used to int erpret this result as normal/abnormal . [facility] CenterMnxhqogVCPZODJHXM2953-60-51 14:47:00 Test Item Value Reference Range Interpretation Comments Segs (test code = Segs) 75.2 [facility] CenterJhoophhMWSXKEZYXW9991-64-58 14:47:00 Test Item Value Reference Range Interpretation Comments Lymphocytes (test code = Lymphocytes) 16.0 [facility] CenterCpqaorgHJILQXVXIU2967-95-58 14:47:00 Test Item Value Reference Range Interpretation Comments Monocytes (test code = Monocytes) 6.4 [facility] CenterUtwavvnMNLQBROMFD6743-73-05 14:47:00 Test Item Value Reference Range Interpretation Comments Eosinophils (test code = Eosinophils) 1.7 [id number] 14:47:00 Test Item Value Reference Range Interpretation Comments Basophils (test code = Basophils) 0.7 [facility] [id number] 14:47:00 Test Item Value Reference Range Interpretation Comments Result 2 (Urine Culture) See Result Comment (test code = Result 2 (Urine Culture)) [facility] AND [id number] 14:47:00 Test Item Value Reference Range Interpretation Comments UA Color (test code = UA Color) YELLOW [facility] AND [id number] 14:47:00 Test Item Value Reference Range Interpretation Comments UA Turbidity (test code = UA CLOUDY Turbidity) [facility] AND [id number] 14:47:00 Test Item Value Reference Range Interpretation Comments UA Spec Grav (test code = UA Spec 1.017 1 1.001-1.035 Grav) [facility] AND [id number] 14:47:00 Test Item Value Reference Range Interpretation Comments UA pH (test code = UA pH) 5.5 1 5.0-8.0 [facility] AND [id number] 14:47:00 Test Item Value Reference Range Interpretation Comments UA Glucose (test code = UA Glucose) NEGATIVE [facility] AND [id number] 14:47:00 Test Item Value Reference Range Interpretation Comments UA Bili (test code = UA Bili) [facility]GATIVE [facility] [id number] 14:47:00 Test Item Value Reference Range Interpretation Comments UA Ketones (test code = UA Ketones) NEGATIVE [facility] AND [id number] 14:47:00 Test Item Value Reference Range Interpretation Comments UA Blood (test code = UA Blood) 1+ [facility] AND [id number] 14:47:00 Test Item Value Reference Range Interpretation Comments UA Protein (test code = UA Protein) 1+ [facility] [id number] 14:47:00 Test Item Value Reference Range Interpretation Comments UA Nitrite (test code = UA Nitrite) POSITIVE [facility] AND [id number] 14:47:00 Test Item Value Reference Range Interpretation Comments UA Leuk Est (test code = UA Leuk Est) 2+ [facility] [id number] 14:47:00 Test Item Value Reference Range Interpretation Comments UA WBC (test code = UA WBC) > OR = 60 [facility] [id number] 14:47:00 Test Item Value Reference Range Interpretation Comments UA RBC (test code = UA RBC) 0-2 [facility] AND [id number] 14:47:00 Test Item Value Reference Range Interpretation Comments UA Sq Epi (test code = UA Sq Epi) NONE SEEN [facility] AND [id number] 14:47:00 Test Item Value Reference Range Interpretation Comments UA Bacteria (test code = UA Bacteria) MANY [facility] AND [id number] 14:47:00 Test Item Value Reference Range Interpretation Comments UA Hyal Cast (test code = UA Hyal NONE SEEN Cast) [facility] AND [id number] 14:47:00 Test Item Value Reference Range Interpretation Comments UA Reflex (test code CULTURE INDICATED - = UA Reflex) RESULTS TO FOLLOW [facility]2020-08-06 14:47:00 Test Item Value Reference Range Interpretation Comments U Creat mg/dL (test code = U Creat 114 20-275 mg/dL) [facility]2020-08-06 14:47:00 Test Item Value Reference Range Interpretation Comments U Alb (test code = U Alb) 16.7 [facility]2020-08-06 14:47:00 Test Item Value Reference Range Interpretation Comments U Alb/Crea (test code = U Alb/Crea) 146 [facility]2020-08-06 14:47:00 Test Item Value Reference Range Interpretation Comments Vitamin D, 25-OH, Total (test code = 37 30-100 Vitamin D, 25-OH, Total) [facility]2020-08-06 14:47:00 Test Item Value Reference Range Interpretation Comments U Creat mg/dL (test code = U Creat 114 20-275 mg/dL) [facility]2020-08-06 14:47:00 Test Item Value Reference Range Interpretation Comments U Prot/Creat (test code = U Prot/Creat) 430 21-161 [facility]2020-08-06 14:47:00 Test Item Value Reference Range Interpretation Comments U Prot/Creat (test code = U 0.430 1 0.021-0.161 Prot/Creat) [facility]2020-08-06 14:47:00 Test Item Value Reference Range Interpretation Comments U Protein (test code = U Protein) 49 5-24 [place] 767390-08-06 14:47:00 Test Item Value Reference Range Interpretation Comments Glucose Lvl (test code = Glucose Lvl) 103 65-99 [place] 767390-08-06 14:47:00 Test Item Value Reference Range Interpretation Comments BUN (test code = BUN) 24 7-25 [place] 767390-08-06 14:47:00 Test Item Value Reference Range Interpretation Comments Creatinine Lvl (test code = Creatinine 1.32 0.50-0.99 Lvl) [place] 8[address]-08-06 14:47:00 Test Item Value Reference Range Interpretation Comments eGFR NON-AFR. LAO (test code = 43 eGFR NON-AFR. LAO) [place] 767390-08-06 14:47:00 Test Item Value Reference Range Interpretation Comments eGFR (test code = eGFR 50 ) [place] 8[address]-08-06 14:47:00 Test Item Value Reference Range Interpretation Comments B/C Ratio (test code = B/C Ratio) 18 6-22 [place] 767390-08-06 14:47:00 Test Item Value Reference Range Interpretation Comments Sodium Lvl (test code = Sodium Lvl) 138 135-146 [place] 767390-08-06 14:47:00 Test Item Value Reference Range Interpretation Comments Potassium Lvl (test code = Potassium 4.4 3.5-5.3 Lvl) [facility]2020-08-06 14:47:00 Test Item Value Reference Range Interpretation Comments Chloride Lvl (test code = Chloride Lvl) 102 98-110 [place] 767390-08-06 14:47:00 Test Item Value Reference Range Interpretation Comments CO2 (test code = CO2) 30 20-32 [place] 767390-08-06 14:47:00 Test Item Value Reference Range Interpretation Comments Calcium Lvl (test code = Calcium Lvl) 9.4 8.6-10.4 [place] 767390-08-06 14:47:00 Test Item Value Reference Range Interpretation Comments Phosphorus (test code = Phosphorus) 4.8 2.5-4.5 [place] 767390-08-06 14:47:00 Test Item Value Reference Range Interpretation Comments Albumin Lvl (test code = Albumin Lvl) 3.9 3.6-5.1 [place] 797490-08-06 14:47:00 Test Item Value Reference Range Interpretation Comments Plt Count Estimated (test code = DECREASED Plt Count Estimated) [facility]stqvwKTXWHRIHJC8162-45-51 14:47:00 Test Item Value Reference Range Interpretation Comments WBC X 10x3 (test code = WBC X 10x3) 7.2 3.8-10.8 [place] 797490-08-06 14:47:00 Test Item Value Reference Range Interpretation Comments RBC X 10x6 (test code = RBC X 10x6) 3.71 3.80-5.10 [place] 797490-08-06 14:47:00 Test Item Value Reference Range Interpretation Comments Hgb (test code = Hgb) 10.7 11.7-15.5 [place] [address]-08-06 14:47:00 Test Item Value Reference Range Interpretation Comments Hct (test code = Hct) 33.9 35.0-45.0 [place] 797490-08-06 14:47:00 Test Item Value Reference Range Interpretation Comments MCV (test code = MCV) 91.4 80.0-100.0 [place] 797490-08-06 14:47:00 Test Item Value Reference Range Interpretation Comments MCH (test code = MCH) 28.8 pg 27.0-33.0 [place] 797490-08-06 14:47:00 Test Item Value Reference Range Interpretation Comments MCHC (test code = MCHC) 31.6 32.0-36.0 [place] 797490-08-06 14:47:00 Test Item Value Reference Range Interpretation Comments RDW (test code = RDW) 13.9 11.0-15.0 [place] 797490-08-06 14:47:00 Test Item Value Reference Range Interpretation Comments Platelet (test code = Platelet) 110 140-400 [place] 797490-08-06 14:47:00 Test Item Value Reference Range Interpretation Comments MPV (test code = MPV) 11.7 7.5-12.5 [place] 797490-08-06 14:47:00 Test Item Value Reference Range Interpretation Comments Neutrophils # (test code = Neutrophils 5414 8305-0982 #) [facility] HospitalGgoukmmPSBBGOOKJP5512-18-03 14:47:00 Test Item Value Reference Range Interpretation Comments Lymphocytes # (test code = Lymphocytes 7915 759-6000 #) [facility]BuwihbzDAHSMEYXIS6896-27-76 14:47:00 Test Item Value Reference Range Interpretation Comments Monocytes # (test code = Monocytes #) 461 200-950 [facility] HospitalUdzglxcRCDHTGCRUS0496-90-41 14:47:00 Test Item Value Reference Range Interpretation Comments Eosinophils # (test code = Eosinophils 122 15-500 #) [facility] HospitalMuktgwjCIKKMTVXYZ0680-76-39 14:47:00 Test Item Value Reference Range Interpretation Comments Basophils # (test code 50 See_Comment [Aut omated message] The = Basophils #) system which generated this result tra nsmitted reference range : <=200. The reference r edy was not used to int erpret this result as normal/abnormal . [facility] HospitalAscckltATABFWYTRE9137-63-50 14:47:00 Test Item Value Reference Range Interpretation Comments Segs (test code = Segs) 75.2 [facility]PgitfbtOKDKXBPQMG3704-11-11 14:47:00 Test Item Value Reference Range Interpretation Comments Lymphocytes (test code = Lymphocytes) 16.0 [facility] HospitalPhqnxnbODUWTZWDHB2236-04-88 14:47:00 Test Item Value Reference Range Interpretation Comments Monocytes (test code = Monocytes) 6.4 [facility] HospitalKqllsgfXTEJFUTTJV1918-67-55 14:47:00 Test Item Value Reference Range Interpretation Comments Eosinophils (test code = Eosinophils) 1.7 [facility] HospitalWlrhgkqGTIDRDQQZD8025-02-06 14:47:00 Test Item Value Reference Range Interpretation Comments Basophils (test code = Basophils) 0.7 [facility] [id number] 14:47:00 Test Item Value Reference Range Interpretation Comments Result 2 (Urine Culture) See Result Comment (test code = Result 2 (Urine Culture)) [facility] AND [id number] 14:47:00 Test Item Value Reference Range Interpretation Comments UA Color (test code = UA Color) YELLOW [facility] AND [id number] 14:47:00 Test Item Value Reference Range Interpretation Comments UA Turbidity (test code = UA CLOUDY Turbidity) [facility] AND [id number] 14:47:00 Test Item Value Reference Range Interpretation Comments UA Spec Grav (test code = UA Spec 1.017 1 1.001-1.035 Grav) [facility] [id number] 14:47:00 Test Item Value Reference Range Interpretation Comments UA pH (test code = UA pH) 5.5 1 5.0-8.0 [facility] [id number] 14:47:00 Test Item Value Reference Range Interpretation Comments UA Glucose (test code = UA Glucose) NEGATIVE [facility] [id number] 14:47:00 Test Item Value Reference Range Interpretation Comments UA Bili (test code = UA Bili) NEGATIVE [facility] [id number] 14:47:00 Test Item Value Reference Range Interpretation Comments UA Ketones (test code = UA Ketones) NEGATIVE [facility] [id number] 14:47:00 Test Item Value Reference Range Interpretation Comments UA Blood (test code = UA Blood) 1+ [facility] [id number] 14:47:00 Test Item Value Reference Range Interpretation Comments UA Protein (test code = UA Protein) 1+ [facility] [id number] 14:47:00 Test Item Value Reference Range Interpretation Comments UA Nitrite (test code = UA Nitrite) POSITIVE [facility] [id number] 14:47:00 Test Item Value Reference Range Interpretation Comments UA Leuk Est (test code = UA Leuk Est) 2+ [facility] [id number] 14:47:00 Test Item Value Reference Range Interpretation Comments UA WBC (test code = UA WBC) > OR = 60 [facility] [id number] 14:47:00 Test Item Value Reference Range Interpretation Comments UA RBC (test code = UA RBC) 0-2 [facility] [id number] 14:47:00 Test Item Value Reference Range Interpretation Comments UA Sq Epi (test code = UA Sq Epi) NONE SEEN [facility] [id number] 14:47:00 Test Item Value Reference Range Interpretation Comments UA Bacteria (test code = UA Bacteria) MANY [facility] [id number] 14:47:00 Test Item Value Reference Range Interpretation Comments UA Hyal Cast (test code = UA Hyal NONE SEEN Cast) [facility] [id number] 14:47:00 Test Item Value Reference Range Interpretation Comments UA Reflex (test code CULTURE INDICATED - = UA Reflex) RESULTS TO FOLLOW [facility] [id number] 14:47:00 Test Item Value Reference Range Interpretation Comments U Creat mg/dL (test code = U Creat 114 20-275 mg/dL) [facility] [id number] 14:47:00 Test Item Value Reference Range Interpretation Comments U Alb (test code = U Alb) 16.7 [facility] [id number] 14:47:00 Test Item Value Reference Range Interpretation Comments U Alb/Crea (test code = U Alb/Crea) 146 [facility] PROTEIN ELECTROPHORESIS-24HR [id number] 08:01:00 Test Item Value Reference Range Interpretation Comments CREATININE, 24 HOUR 1.45 g/24 h 0.50-2.15 URINE (test code = 03660937) PROTEIN/CREATININE 292 mg/g creat < OR = 114 H RATION (test code = 44299311) PROTEIN, TOTAL 24 HR UR 424 mg/24 h <150 H TEST PERFORMED (test code = 19097580) AT:[employer] [address] [address]OMRQANIECY BOYCE MD ALBUMIN (test code = 35 % 20582163) UHYYX-0-XTRLBXRGQ (test 10 % code = 13191128) GAVDX-3-TENXUKHQZ (test 12 % code = 92700236) BETA GLOBULINS (test 25 % code = 67375620) GAMMA GLOBULINS (test 18 % code = 30804543) INTERPRETATION (test Albumin and code = 14504003) various dann bulin fractions detected on proteinelectrop ho resis. No abnormal protei n bands (Bence-Jonespro te inuria) detected.TEST PERFORMED AT:[employer] [address] [address]QXDJFNIECY BOYCE MD NEUTROPHIL CYTOPLASMIC [id number] 05:19:00 Test Item Value Reference Range Interpretation Comments ANCA SCREEN (test NEGATIVE NEGATIVE ANCA Scree n includes code = 97914287) evaluation for p-ANCA, c-ANCA andatypi alexandre p-ANCA. [...] ients with Crohn's disease .TEST PERFORMED AT: [employer] [facility] [id number] [facility] [place] [address]QWLGYOSCAR EISENBERG MD,PHD ,[facility]OL[facility] [id number] 06:25:00 Test Item Value Reference Range Interpretation [...] MORPH (test code = RBCMOR) NORMAL URINE [id number] 09:53:00 Test Item Value Reference Range Interpretation [...] = VD) 36.0 ng/mL 30.0-100.0 SERUM PROTEIN [id number] 06:20:00 Test Item Value Reference Range Interpretation Comments PROTEIN TOTAL (test 5.7 g/dL 6.1-8.1 L TEST PER FORMED AT:QUEST code = 75446699) DI[facility]NOST[facility] -[id number] [facility] [place] [address]QQQKENIECY BOYCE MD ALBUMIN (test code = 3.2 g/dL 3.8-4.8 L 04936970) UBZXG-6-IOJBNFGOB 0.4 g/dL 0.2-0.3 H (test code = 63966666) CKAIO-2-DJFGRBQWL 0.8 g/dL 0.5-0.9 (test code = 86434778) BETA 1 GLOBULIN (test 0.5 g/dL 0.4-0.6 code = 64885295) BETA 2 GLOBULIN (test 0.2 g/dL 0.2-0.5 code = 40129988) GAMMA GLOBULINS (test 0.6 g/dL 0.8-1.7 L code = 69324058) INTERPRETATION (test Pattern consistent with code = 15584914) an acute ph ase reactionConsist ent with hypogammaglobul inemia. Serum free ligh tchains or urine immuno fixation should be consi dered ifplasma cell d yscrasias are a possible clinicaldiagnos is.TEST PERFORMED AT:[facility] [id number] [facility] [place] [address]VLRWZNIECY BOYCE MD [id number] 06:13:00 Test Item Value Reference Range Interpretation Comments MAGNESIUM (test code = 48A) 1.7 mg/dL 1.8-2.4 L COMPREHENSIVE METABOLIC [id number] 06:13:00 Test Item Value Reference Range Interpretation [...] (test code = RBCMOR) NORMAL COMPREHENSIVE METABOLIC [id number] 05:30:00 Test Item Value Reference Range Interpretation [...] (test code = RBCMOR) NORMAL URINALYSIS WITH [id number] 06:44:00 Test Item Value Reference Range Interpretation [...] code = USPERM) /HPF NONE COMPREHENSIVE METABOLIC [id number] 05:24:00 Test Item Value Reference Range Interpretation [...] = RBCMOR) NORMAL U/S KIDNEY (RENAL)2019-06-06 23:20:42LOCATION: [id number]: 63-year-old female who presents with acute nontraumatic [...] jet was observed onthe color flow study.TROPONIN [id number] 07:14:00 Test Item Value Reference Range Interpretation Comments TROPONIN I (test code = A84) <0.015 ng/mL 0.000-0.045 COMPREHENSIVE METABOLIC [id number] 05:28:00 Test Item Value Reference Range Interpretation [...] (test code = RBCMOR) NORMAL COMPREHENSIVE METABOLIC [id number] 04:58:00 Test Item Value Reference Range Interpretation [...] (test code = MDIFF) NO NO CARDIAC [id number] 23:10:00 Test Item Value Reference Range Interpretation Comments TROPONIN I (test code = A84) <0.015 ng/mL 0.000-0.045 U/S VENOUS DOPPLER BALDO LOW [id number] 22:23:14LOCATION: [id number]: 63-year-old female who presents with bilateral leg [...] thrombosis in either of thispatient's legs. CARDIAC [id number] 16:50:00 Test Item Value Reference Range Interpretation Comments TROPONIN I (test code = A84) <0.015 ng/mL 0.000-0.045 BRAIN NATRIURETIC [id number] 14:39:00 Test Item Value Reference Range Interpretation Comments proBNP (test code = PBNP) 1337 pg/mL 0-125 H THYROID PANEL/SCREEN (TSH)2019-06-04 12:05:00 Test Item Value Reference Range Interpretation Comments TSH (test code = A57) 0.989 uIU/mL 0.358-3.740 [id number] 12:02:00 Test Item Value Reference Range Interpretation Comments CPK (test code = 32A) 98 IU/L 26-192 AMYL[facility] AND [id number] 12:02:00 Test Item Value Reference Range Interpretation Comments AMYLASE (test code = 10A) 19 U/L 28-100 L LIPASE (test code = 60A) 67 IU/L 73-393 L COMPREHENSIVE METABOLIC [id number] 12:02:00 Test Item Value Reference Range Interpretation [...] code = 31A) 41 IU/L <=78 TROPONIN [id number] 11:57:00 Test Item Value Reference Range Interpretation Comments TROPONIN I (test code = A84) <0.015 ng/mL 0.000-0.045 XR CHEST 1 VIEW [id number] 11:55:22EXAM: XR CHEST 1 VIEW PORTABLE.LOCATION: D4.HISTORY: [id number]: Chest pain.COMPARISON: Radiograph dated 05/12/2019.TECHNIQUE: Single AP view of the chest was obtained. FINDINGS:The heart is enlarged in size. Small left pleural effusion and left basilaropacities are present. There is elevation of the right hemidiaphragm. No acuteosseous abnormality is identified.IMPRESSION:Small left pleural effusion with left basilar opacities, which may representatelectasis or infiltrates.Cardiomegaly. PRO TIME AND [id number] 11:43:00 Test Item Value Reference Range Interpretation [...] (test code = RBCMOR) NORMAL CBC WITH [id number] 15:29:00 Test Item Value Reference Range Interpretation [...] NORMAL (1.5-3 um) NORMAL PLTMOR) BASIC METABOLIC [id number] 15:26:00 Test Item Value Reference Range Interpretation [...] code = 09D) 9.2 mg/dL 8.3-9.5 CARDIAC [id number] 06:04:00 Test Item Value Reference Range Interpretation Comments TROPONIN I (test code = A84) <0.015 ng/mL 0.000-0.045 BASIC METABOLIC [id number] 05:52:00 Test Item Value Reference Range Interpretation [...] MORPH (test code = RBCMOR) NORMAL CARDIAC [id number] 23:08:00 Test Item Value Reference Range Interpretation Comments TROPONIN I (test code = A84) <0.015 ng/mL 0.000-0.045 CT DISSECTION [id number] 19:26:35Exam: CT thorax PE protocol.Location: H 12History: [id number]: Chest painTechnique: Enhanced spiral slices were taken [...] code = A57) 0.706 uIU/mL 0.358-3.740 LIVER [id number] 18:28:00 Test Item Value Reference Range Interpretation [...] = 31A) 21 IU/L <=78 BRAIN NATRIURETIC [id number] 18:19:00 Test Item Value Reference Range Interpretation Comments proBNP (test code = PBNP) 518 pg/mL 0-125 H [id number] 18:15:00 Test Item Value Reference Range Interpretation Comments MAGNESIUM (test code = 48A) 1.9 mg/dL 1.8-2.4 L-[id number] 17:40:00 Test Item Value Reference Range Interpretation Comments D-DIMER (test code = <200 ng/mL D-DU 0-234 DDI) D-DIMER COMMENT (test *Level to rule out code = DDCOM) DVT or PE: <235 ng/mL D-DU* CARDIAC [id number] 17:31:00 Test Item Value Reference Range Interpretation Comments TROPONIN I (test code = A84) <0.015 ng/mL 0.000-0.045 BASIC METABOLIC [id number] 17:27:00 Test Item Value Reference Range Interpretation [...] LMW Heparin. Order Code is ANTI-XA PROTHROMBIN [id number] 17:26:00 Test Item Value Reference Range Interpretation Comments PT (test code = 12.0 s 9.8-13.6 TT) INR (test code = 1.1 INR) INRH (test code = SUGGESTED THERAPEUTIC INRH) RANGE FOR INR: 2.5 - 3.5 For Patients with Prosthetic Valves or Patients with recurrent Thromboembolic Events 2.0 - 3.0 For Most Other Applications XR CHEST 1 VIEW [id number] 17:04:28Portable AP chest, 1 viewLocation Code: [id number] HISTORY: Chest painCOMPARISON: NoneCOMMENT: Mild atelectasis is present within the lung bases. The costophrenic angles aresharp. The cardiomediastinalsilhouette is unremarkable. The bones are intact.IMPRESSION: Mild bibasilar atelectasis. Otherwise, no acute abnormalityCHEM [id number] 16:51:00 Test Item Value Reference Range Interpretation Comments Creatinine Lvl (test code = Creatinine 1.15 0.50-1.40 Lvl) [facility]2017-01-24 16:51:00 Test Item Value Reference Range Interpretation Comments BUN (test code = BUN) 16 - [facility]2017-01-24 16:51:00 Test Item Value Reference Range Interpretation Comments Chloride Lvl (test code = Chloride Lvl) 109 95-109 [facility]2017-01-24 16:51:00 Test Item Value Reference Range Interpretation Comments Potassium Lvl (test code = Potassium 4.3 3.5-5.1 Lvl) [facility]2017-01-24 16:51:00 Test Item Value Reference Range Interpretation Comments Sodium Lvl (test code = Sodium Lvl) 144 135-145 [facility]2017-01-24 16:51:00 Test Item Value Reference Range Interpretation Comments CO2 (test code = CO2) 28 24-32 [facility]2017-01-24 16:51:00 Test Item Value Reference Range Interpretation Comments Calcium Lvl (test code = Calcium Lvl) 8.4 8.5-10.5 [facility]2017-01-24 16:51:00 Test Item Value Reference Range Interpretation Comments AGAP (test code = AGAP) 11.3 10.0-20.0 [facility]2017-01-24 16:51:00 Test Item Value Reference Range Interpretation Comments Glucose Lvl (test code = Glucose Lvl) 109 70-99 [facility]2017-01-24 16:51:00 Test Item Value Reference Range Interpretation Comments eGFR (test code = eGFR) 52 [facility]2017-01-24 16:51:00 Test Item Value Reference Range Interpretation Comments Creatinine Lvl (test code = Creatinine 1.15 0.50-1.40 Lvl) [facility]2017-01-24 16:51:00 Test Item Value Reference Range Interpretation Comments BUN (test code = BUN) 16 - [facility]2017-01-24 16:51:00 Test Item Value Reference Range Interpretation Comments Chloride Lvl (test code = Chloride Lvl) 109 95-109 [facility]2017-01-24 16:51:00 Test Item Value Reference Range Interpretation Comments Potassium Lvl (test code = Potassium 4.3 3.5-5.1 Lvl) [facility]2017-01-24 16:51:00 Test Item Value Reference Range Interpretation Comments Sodium Lvl (test code = Sodium Lvl) 144 135-145 [facility]2017-01-24 16:51:00 Test Item Value Reference Range Interpretation Comments CO2 (test code = CO2) 28 24-32 [facility]2017-01-24 16:51:00 Test Item Value Reference Range Interpretation Comments Calcium Lvl (test code = Calcium Lvl) 8.4 8.5-10.5 [facility]2017-01-24 16:51:00 Test Item Value Reference Range Interpretation Comments AGAP (test code = AGAP) 11.3 10.0-20.0 [facility]2017-01-24 16:51:00 Test Item Value Reference Range Interpretation Comments Glucose Lvl (test code = Glucose Lvl) 109 70-99 [facility]2017-01-24 16:51:00 Test Item Value Reference Range Interpretation Comments eGFR (test code = eGFR) 52 [facility]2017-01-24 16:51:00 Test Item Value Reference Range Interpretation Comments Creatinine Lvl (test code = Creatinine 1.15 0.50-1.40 Lvl) [facility]2017-01-24 16:51:00 Test Item Value Reference Range Interpretation Comments BUN (test code = BUN) 16 - [facility]2017-01-24 16:51:00 Test Item Value Reference Range Interpretation Comments Chloride Lvl (test code = Chloride Lvl) 109 95-109 [facility]2017-01-24 16:51:00 Test Item Value Reference Range Interpretation Comments Potassium Lvl (test code = Potassium 4.3 3.5-5.1 Lvl) [facility]2017-01-24 16:51:00 Test Item Value Reference Range Interpretation Comments Sodium Lvl (test code = Sodium Lvl) 144 135-145 [facility]2017-01-24 16:51:00 Test Item Value Reference Range Interpretation Comments CO2 (test code = CO2) 28 - [facility]2017-01-24 16:51:00 Test Item Value Reference Range Interpretation Comments Calcium Lvl (test code = Calcium Lvl) 8.4 8.5-10.5 [facility]2017-01-24 16:51:00 Test Item Value Reference Range Interpretation Comments AGAP (test code = AGAP) 11.3 10.0-20.0 [facility]2017-01-24 16:51:00 Test Item Value Reference Range Interpretation Comments Glucose Lvl (test code = Glucose Lvl) 109 70-99 [facility]2017-01-24 16:51:00 Test Item Value Reference Range Interpretation Comments eGFR (test code = eGFR) 52 [facility]2017-01-24 16:51:00 Test Item Value Reference Range Interpretation Comments Creatinine Lvl (test code = Creatinine 1.15 0.50-1.40 Lvl) [facility]2017-01-24 16:51:00 Test Item Value Reference Range Interpretation Comments BUN (test code = BUN) 16 - [facility]2017-01-24 16:51:00 Test Item Value Reference Range Interpretation Comments Chloride Lvl (test code = Chloride Lvl) 109 95-109 [facility]2017-01-24 16:51:00 Test Item Value Reference Range Interpretation Comments Potassium Lvl (test code = Potassium 4.3 3.5-5.1 Lvl) [facility]2017-01-24 16:51:00 Test Item Value Reference Range Interpretation Comments Sodium Lvl (test code = Sodium Lvl) 144 135-145 [facility]2017-01-24 16:51:00 Test Item Value Reference Range Interpretation Comments CO2 (test code = CO2) 28 -32 [facility]2017-01-24 16:51:00 Test Item Value Reference Range Interpretation Comments Calcium Lvl (test code = Calcium Lvl) 8.4 8.5-10.5 [facility]2017-01-24 16:51:00 Test Item Value Reference Range Interpretation Comments AGAP (test code = AGAP) 11.3 10.0-20.0 [facility]2017-01-24 16:51:00 Test Item Value Reference Range Interpretation Comments Glucose Lvl (test code = Glucose Lvl) 109 70-99 [facility]2017-01-24 16:51:00 Test Item Value Reference Range Interpretation Comments eGFR (test code = eGFR) 52 [facility]2017-01-24 16:51:00 Test Item Value Reference Range Interpretation Comments Creatinine Lvl (test code = Creatinine 1.15 0.50-1.40 Lvl) [facility]2017-01-24 16:51:00 Test Item Value Reference Range Interpretation Comments BUN (test code = BUN) 16 - [facility]2017-01-24 16:51:00 Test Item Value Reference Range Interpretation Comments Chloride Lvl (test code = Chloride Lvl) 109 95-109 [facility]2017-01-24 16:51:00 Test Item Value Reference Range Interpretation Comments Potassium Lvl (test code = Potassium 4.3 3.5-5.1 Lvl) [facility]2017-01-24 16:51:00 Test Item Value Reference Range Interpretation Comments Sodium Lvl (test code = Sodium Lvl) 144 135-145 [facility]2017-01-24 16:51:00 Test Item Value Reference Range Interpretation Comments CO2 (test code = CO2) 28 24-32 [facility]2017-01-24 16:51:00 Test Item Value Reference Range Interpretation Comments Calcium Lvl (test code = Calcium Lvl) 8.4 8.5-10.5 [facility]2017-01-24 16:51:00 Test Item Value Reference Range Interpretation Comments AGAP (test code = AGAP) 11.3 10.0-20.0 [facility]2017-01-24 16:51:00 Test Item Value Reference Range Interpretation Comments Glucose Lvl (test code = Glucose Lvl) 109 70-99 [facility]2017-01-24 16:51:00 Test Item Value Reference Range Interpretation Comments eGFR (test code = eGFR) 52 [facility]
[2022-10-14] MEDS ORDERED: dilTIAZem HCL 25 MG/5 ML VIAL IV ONE (08:11)
[2022-10-14 08:28] LABS: Arterial Blood Carboxyhemoglob 1.9 % (0-1.5); Blood O2 Saturation 94.2 % (92-98.5)
[2022-10-14 08:38] LABS: Absolute Lymphocytes (CBC) 0.6 K/uL (0.7-4.9); Hematocrit 27.8 % (36.0-45.0); Lymphocytes % 5.9 % (15.3-44.8); MPV 7.6 fL (7.6-11.3); RBC Red Blood Cell Count 2.87 M/uL (3.86-4.86)
[2022-10-14 09:05] LABS: Bilirubin Total 1.1 mg/dL (0.2-1.0); Magnesium 2.2 mg/dL (1.6-2.4); Potassium 3.7 mmol/L (3.5-5.1); Protein, Total 7.6 g/dL (6.4-8.2); Troponin High Sensitivity 21.3 pg/mL (<58.9)
[2022-10-14 09:16] LABS: SARS-COV-2 RT PCR NEGATIVE (NEGATIVE)
--- NOTE | 2022-10-14 10:22 | ER ---
Nurse's Notes [facility] Name: Kassie De Jesus Age: 67 yrs Sex: Female : 1955 Arrival Date: 10/14/2022 Time: 07:54 Bed 7 Private MD: Diagnosis: Fluid overload;ESRD needing dialysis;Acute respiratory failure with hypoxia Presentation: 10/14 07:56 Chief complaint: EMS states: Pt from dialysis, c/o SOB, did not receive treatment. Was ph 90% RA at dialysis center, placed on 2 L. Pt is in a-fib w/ rate up to 140's, has hx of a-fib. Pt also c/o some chest pain and nausea, IV to RAC, 4 mg Zofran given. Coronavirus screen: Vaccine status: Patient reports being unvaccinated. Ebola Screen: No symptoms or risks identified at this time. Initial Sepsis Screen: Does the patient meet any 2 criteria? No. Patient's initial sepsis screen is negative. Does the patient have a suspected source of infection? No. Patient's initial sepsis screen is negative. Risk Assessment: Do you want to hurt yourself or someone else?. Onset of symptoms was October 14, 2022. 07:56 Method Of Arrival: EMS: [facility] ph 07:56 Acuity: LENI 2 ph Historical: - Allergies: 08:01 Bactrim; ph 08:01 cefepime; ph 08:01 Codeine; ph 08:01 Levofloxacin; ph 08:01 Morphine; itching; ph 08:01 PENICILLINS; ph 08:01 QUINOLONES; ph - Home Meds: 08:01 Alphagan P ophthalmic (eye) 1 drop twice a day [Active]; apixaban 2.5 mg Oral tab 1 tab ph 2 times per day [Active]; bumetanide 2 mg Oral tab 1 tab once daily [Active]; digoxin 125 mcg (0.125 mg) Oral tab 1 tab 3 X weekly [Active]; metoprolol tartrate 25 mg Oral tab 1 tab 2 times per day [Active]; midodrine 5 mg Oral tab PRN with dialysis [Active]; midodrine 10 mg Oral tab 1 tab Q8H, don't take before dialysis, bring pills to traetment. [Active]; pantoprazole 40 mg Oral TbEC 1 tab once daily [Active]; midodrine Oral [Active]; - PMHx: 08:01 Atrial fibrillation; Congestive heart failure; Dialysis; High Cholesterol; Hypertensive ph disorder; stage 4 kidney failure; - PSHx: 08:01 back surgery; Dialysis catheter LEFT upper chest; ph - Immunization history:: Adult Immunizations unknown. - Social history:: Smoking status: Patient denies any tobacco usage or history of. Screenin:22 [facility] ED Fall Risk Assessment (Adult) History of falling in the last 3 months, db including since admission No falls in past 3 months (0 pts) Confusion or Disorientation No (0 pts) Intoxicated or Sedated No (0 pts) Impaired Gait No (0 pts) Mobility Assist Device Used Yes (1 pt) Altered Elimination No (0 pt) Score/Fall Risk Level 0 - 2 = Low Risk Oriented to surroundings, Hourly rounding (assess needs \T\ fall precautionary measures) done. Abuse screen: Denies threats or abuse. Denies injuries from another. Nutritional screening: No deficits noted. Tuberculosis screening: No symptoms or risk factors identified. Assessment: 08:00 Reassessment: Patient appears in no apparent distress at this time. Patient and/or db family updated on plan of care and expected duration. Pain level reassessed. Patient is alert, oriented x 3, equal unlabored respirations, skin warm/dry/pink. Reassessment: PATIENT DID NOT RECEIVE DIALYSIS. General: Appears in no apparent distress. comfortable, Behavior is calm, cooperative, appropriate for age. Pain: Complains of pain in chest. Neuro: No deficits noted. Level of Consciousness is awake, alert, obeys commands, Oriented to person, place, time, situation, Appropriate for age Speech is normal. Cardiovascular: Reports chest pain, Capillary refill < 3 seconds Rhythm is atrial fibrillation. Respiratory: Reports shortness of breath at rest Airway is patent Respiratory effort is even, unlabored, Respiratory pattern is regular, symmetrical. GI: No deficits noted. No signs and/or symptoms were reported involving the gastrointestinal system. GI: Abdomen is round distended. : No deficits noted. No signs and/or symptoms were reported regarding the genitourinary system. :. EENT: No deficits noted. No signs and/or symptoms were reported regarding the EENT system. Derm: No deficits noted. No signs and/or symptoms reported regarding the dermatologic system. Musculoskeletal: No deficits noted. No signs and/or symptoms reported regarding the musculoskeletal system. 08:22 Reassessment: RT AT BEDSIDE FOR ABG. db 09:00 Reassessment: Patient appears in no apparent distress at this time. Patient and/or db family updated on plan of care and expected duration. Pain level reassessed. Patient is alert, oriented x 3, equal unlabored respirations, skin warm/dry/pink. Patient states symptoms have improved. 10:00 Reassessment: Patient appears in no apparent distress at this time. No changes from db previously documented assessment. Patient and/or family updated on plan of care and expected duration. Pain level reassessed. Patient is alert, oriented x 3, equal unlabored respirations, skin warm/dry/pink. 11:00 Reassessment: Patient appears in no apparent distress at this time. No changes from db previously documented assessment. Patient and/or family updated on plan of care and expected duration. Pain level reassessed. 12:20 Reassessment: Patient appears in no apparent distress at this time. No changes from db previously documented assessment. Patient and/or family updated on plan of care and expected duration. Pain level reassessed. Patient is alert, oriented x 3, equal unlabored respirations, skin warm/dry/pink. General: Appears Behavior is. Vital Signs: 07:56 BP 148 / 83; Pulse 135; Resp 18; Temp 98.4; Pulse Ox 86% on R/A; Weight 108.86 kg; ph Height 5 ft. 7 in. (170.18 cm); 08:00 BP 138 / 102; Pulse 121; Resp 26; Pulse Ox 100% on 2 lpm NC; db 08:30 BP 145 / 105; Pulse 104; Resp 28; Pulse Ox 98% on 2 lpm NC; db 09:00 BP 135 / 70; Pulse 101; Resp 23; Pulse Ox 96% on 2 lpm NC; db 10:00 BP 120 / 74; Pulse 20; Resp 22; Pulse Ox 96% on 2 lpm NC; db 11:00 BP 133 / 90; Pulse 84; Resp 20; Pulse Ox 98% on 2 lpm NC; db 12:00 BP 134 / 63; Pulse 90; Resp 20; Pulse Ox 98% on 2 lpm NC; db 07:56 Body Mass Index 37.59 (108.86 kg, 170.18 cm) ph 07:56 improved to 99% on 2L NC ph ED Course: 07:54 Patient arrived in ED. em1 07:56 Kimberlee Steen MD is Attending Physician. sd2 08:01 Triage completed. ph 08:03 Arm band placed on Patient placed in an exam room, on a stretcher, on oxygen, on ph cardiac rehabilitation specialist, on pulse oximetry. 08:04 Radha Leal, RN is Primary Nurse. db 08:15 Maintain EMS IV. Dressing intact. Good blood return noted. Site clean \T\ dry. Gauge \T\ db site: 20 G right AC. Flushed right antecubital. 08:22 Oxygen administration via nasal cannula \T\ 2L/min Response to oxygen therapy: symptoms db improved. 08:55 XRAY Chest (1 view) In Process Unspecified. EDMS 10:21 Ranjit Eagle MD is Hospitalizing Provider. sd2 12:11 Patient has correct armband on for positive identification. Bed in low position. Call db light in reach. Side rails up X2. Client placed on continuous cardiac and pulse oximetry monitoring. NIBP monitoring applied. Warm blanket given. 12:11 No provider procedures requiring assistance completed. db 12:22 Patient admitted, IV remains in place. db Administered Medications: 08:21 Drug: Cardizem (diltiazem) 10 mg Route: IVP; Site: right antecubital; db 12:17 Follow up: Response: No adverse reaction db Medication: 08:29 VIS not applicable for this client. db Outcome: 10:21 Decision to Hospitalize by Provider. sd2 12:22 Admitted to Med/surg accompanied by tech, via wheelchair. db 12:22 Condition: stable 12:22 Instructed on the need for admit. 12:40 Patient left the ED. db Signatures: Dispatcher [employer] EDMS Diego Porras em1 Juli Salazar RN RN ph Kimberlee Steen MD MD sd2 Radha Leal, ARMANDO RN db
--- NOTE | 2022-10-14 10:22 | EDPHYS ---
Physician Documentation [facility] Name: Kassie De Jesus Age: 67 yrs Sex: Female : 1955 Arrival Date: 10/14/2022 Time: 07:54 Bed 7 Private MD: ED Physician Kimberlee Steen HPI: 10/14 08:04 This 67 yrs old Female presents to ER via EMS with complaints of SOB. sd2 08:04 67 yo F presents with CC via EMS of SOB. Reports ongoing and worsening overnight to the sd2 point where she could not sleep. Went to dialysis this morning and worsened and was sent to ER. Found to be 85% on room air and currently on 2L NC. Reports ongoing intermittently productive cough. Denies fever or recent sick contacts. Denies chest pain. Reports hx of A-fib on Eliquis. Taken off her Metoprolol due to bradycardia issues and hypotension. She is currently on midodrine and has taken all of her morning medications today.. Historical: - Allergies: 08:01 Bactrim; ph 08:01 cefepime; ph 08:01 Codeine; ph 08:01 Levofloxacin; ph 08:01 Morphine; itching; ph 08:01 PENICILLINS; ph 08:01 QUINOLONES; ph - Home Meds: 08:01 Alphagan P ophthalmic (eye) 1 drop twice a day [Active]; apixaban 2.5 mg Oral tab 1 tab ph 2 times per day [Active]; bumetanide 2 mg Oral tab 1 tab once daily [Active]; digoxin 125 mcg (0.125 mg) Oral tab 1 tab 3 X weekly [Active]; metoprolol tartrate 25 mg Oral tab 1 tab 2 times per day [Active]; midodrine 5 mg Oral tab PRN with dialysis [Active]; midodrine 10 mg Oral tab 1 tab Q8H, don't take before dialysis, bring pills to traetment. [Active]; pantoprazole 40 mg Oral TbEC 1 tab once daily [Active]; midodrine Oral [Active]; - PMHx: 08:01 Atrial fibrillation; Congestive heart failure; Dialysis; High Cholesterol; Hypertensive ph disorder; stage 4 kidney failure; - PSHx: 08:01 back surgery; Dialysis catheter LEFT upper chest; ph - Immunization history:: Adult Immunizations unknown. - Social history:: Smoking status: Patient denies any tobacco usage or history of. ROS: 08:04 Constitutional: Negative for fever, chills, and weight loss, Eyes: Negative for injury, sd2 pain, redness, and discharge, Cardiovascular: Negative for chest pain, palpitations, and edema. 08:04 Abdomen/GI: Negative for abdominal pain, nausea, Positive for post-tussive emesis and chronic diarrhea. MS/Extremity: Negative for injury and deformity, Skin: Negative for injury, rash, and discoloration, Neuro: Negative for headache, numbness and tingling. 08:04 Respiratory: Positive for cough, shortness of breath, Negative for wheezing. Exam: 08:04 Constitutional: This is a well developed, well nourished patient who is awake, alert, sd2 and in no acute distress. Head/Face: Normocephalic, atraumatic. Eyes: EOMI, normal conjunctiva bilaterally Chest/axilla: Normal chest wall appearance and motion. Nontender with no deformity. HD catheter in place to L chest wall. Loop recorder also in place. Cardiovascular: Tachycardic rate and irregularly irregular rhythm with a normal S1 and S2. No gallops, murmurs, or rubs. 2+ distal pulses. Respiratory: Lungs have equal breath sounds bilaterally, diminished BS at bilateral bases. No rales, rhonchi or wheezes noted. No increased work of breathing, no retractions or nasal flaring. Abdomen/GI: Soft, non-tender, with normal bowel sounds. No guarding or rebound. No evidence of tenderness throughout. Skin: Warm, dry with normal turgor. Normal color with no rashes, no lesions, and no evidence of cellulitis. MS/ Extremity: Pulses equal, no cyanosis. Neurovascular intact. Full, normal range of motion. Ambulatory without difficulty. Psych: Awake, alert, with orientation to person, place and time. Behavior, mood, and affect are within normal limits. 08:04 ECG was reviewed by the Attending Physician. A-fib w/RVR, rate 122, no STEMI criteria sd2 Vital Signs: 07:56 BP 148 / 83; Pulse 135; Resp 18; Temp 98.4; Pulse Ox 86% on R/A; Weight 108.86 kg; ph Height 5 ft. 7 in. (170.18 cm); 08:00 BP 138 / 102; Pulse 121; Resp 26; Pulse Ox 100% on 2 lpm NC; db 08:30 BP 145 / 105; Pulse 104; Resp 28; Pulse Ox 98% on 2 lpm NC; db 09:00 BP 135 / 70; Pulse 101; Resp 23; Pulse Ox 96% on 2 lpm NC; db 10:00 BP 120 / 74; Pulse 20; Resp 22; Pulse Ox 96% on 2 lpm NC; db 11:00 BP 133 / 90; Pulse 84; Resp 20; Pulse Ox 98% on 2 lpm NC; db 12:00 BP 134 / 63; Pulse 90; Resp 20; Pulse Ox 98% on 2 lpm NC; db 07:56 Body Mass Index 37.59 (108.86 kg, 170.18 cm) ph 07:56 improved to 99% on 2L NC ph MDM: 07:56 Patient medically screened. sd2 08:07 Differential Diagnosis Differential diagnosis includes but is not limited to: ACS, sd2 DVT/PE, pneumothorax, dissection, musculoskeletal, anxiety, anemia, electrolyte abnormality, pneumonia, CHF, COPD among others. Data reviewed: vital signs, nurses notes, EMS record. 10:18 Data reviewed: lab test result(s), EKG, radiologic studies. Counseling: I had a sd2 detailed discussion with the patient and/or guardian regarding: the historical points, exam findings, and any diagnostic results supporting the discharge/admit diagnosis, lab results, radiology results, the need for further work-up and treatment in the hospital. ED course: Discussed case with Dr. Barton, Nephrology, who will arrange for dialysis for patient. Labs and imaging consistent with fluid overload with hypoxia. Dr. Eagle to admit. . 10/14 08:03 Order name: CBC with Diff; Complete Time: 08:49 sd2 10/14 08:03 Order name: CMP; Complete Time: 10:04 sd2 10/14 08:03 Order name: Magnesium; Complete Time: 10:04 sd2 10/14 08:03 Order name: Troponin High Sensitivity; Complete Time: 10:04 sd2 10/14 08:03 Order name: BNP; Complete Time: 10:04 sd2 10/14 08:03 Order name: ABG; Complete Time: 10:04 sd2 10/14 08:03 Order name: COVID-19/FLU A+B; Complete Time: 10:04 sd2 10/14 11:34 Order name: CBC with Automated Diff EDMS 10/14 11:34 Order name: CBC with Automated Diff EDMS 10/14 11:34 Order name: CBC with Automated Diff EDMS 10/14 11:34 Order name: CBC with Automated Diff EDMS 10/14 11:34 Order name: Comprehensive Metabolic Panel EDMS 10/14 11:34 Order name: Comprehensive Metabolic Panel EDMS 10/14 11:34 Order name: Comprehensive Metabolic Panel EDMS 10/14 08:03 Order name: EKG - Nurse/Tech; Complete Time: 08:04 sd2 10/14 08:03 Order name: XRAY Chest (1 view); Complete Time: 10:29 2 10/14 11:32 Order name: CONS Physician Consult EDMS 10/14 11:32 Order name: Renal EDMS 10/14 11:34 Order name: Comprehensive Metabolic Panel EDMS Administered Medications: 08:21 Drug: Cardizem (diltiazem) 10 mg Route: IVP; Site: right antecubital; db 12:17 Follow up: Response: No adverse reaction db Disposition Summary: 10/14/22 10:21 Hospitalization Ordered Hospitalization Status: Observation sd2 Provider: Ranjit Eagle sd2 Location: Telemetry/MedSurg (observation) sd2 Condition: Stable sd2 Problem: an acute exacerbation sd2 Symptoms: have improved sd2 Bed/Room Type: [facility] Room Assignment: 207(10/14/22 11:55) em1 Diagnosis - Fluid overload sd2 - ESRD needing dialysis sd2 - Acute respiratory failure with hypoxia sd2 Forms: - Medication Reconciliation Form sd2 - SBAR form sd2 Signatures: Dispatcher [employer] EDMS Diego Porras em1 Juli Salazar RN RN Kimberlee Steen MD MD sd2 Radha Leal RN RN db Corrections: (The following items were deleted from the chart) 11:55 10:21 sd2 em1
--- NOTE | 2022-10-14 10:25 | RAD REPORT ---
EXAM DESCRIPTION: RAD - Chest Single View - 10/14/2022 8:53 am CLINICAL HISTORY: SOB Chest pain. COMPARISON: Chest Single View dated 09/23/2022; Chest Single View dated 09/01/2022; Chest Single View dated 08/03/2022; Chest Single View dated 05/21/2022 FINDINGS: Portable technique limits examination quality. Chronically elevated right hemidiaphragm is noted. Mild pulmonary edema suspected. The heart is moder ately enlarged. Left-sided venous catheter has tip in the right atrium. IMPRESSION: Mild CHF versus volume overload pattern.
[2022-10-14] MEDS ORDERED: ONDANSETRON 4 MG (ODT) TAB PO PRN (11:28)
[2022-10-14] MEDS ORDERED: DICYCLOMINE HCL 10 MG CAP PO PRN (11:28)
--- NOTE | 2022-10-14 11:35 | P.HP ---
Certification for Inpatient Patient admitted to: Observation With expected LOS: <2 Midnights Patient will require the following post-hospital care: None Practitioner: I am a practitioner with admitting privileges, knowledge of patient current condition, hospital course, and medical plan of care. Services: Services provided to patient in accordance with Admission requirements found in Title 42 Section 412.3 of the Code of Federal Regulations Patient History Date of Service: 10/14/22 Primary Care Provider: Fco Reason for admission: Chf exacerbation History of Present Illness: Patient is an office patient of [facility]. She has a history of chf and esrd. Went to dialysis today. She was found to be hypoxic. Was sent to the ER. CXR showed bilateral pleural infiltrates. The patient does get fluid overloaded quite frequently. She has some shortness of breath Allergies cefepime Allergy (Verified 10/26/21 06:30) Hives codeine Allergy (Verified 05/20/22 05:03) Itching levofloxacin Allergy (Verified 10/26/21 06:30) Hives/Rash morphine Allergy (Verified 05/20/22 05:03) Itching Penicillins Allergy (Verified 10/26/21 06:30) Hives/Rash sulfamethoxazole [From Bactrim] Allergy (Verified 05/20/22 05:03) Hives trimethoprim [From Bactrim] Allergy (Verified 05/20/22 05:03) Hives Home Medications: Apixaban [Eliquis] 2.5 mg PO BID 05/19/22 Bumetanide 1 tab PO DAILY 05/19/22 Digoxin [Lanoxin] 1 tab PO T,TH,S 05/19/22 Metoprolol Tartrate 1 tab PO BID 05/19/22 Midodrine HCl 1 tab PO TID 05/19/22 Pantoprazole [Protonix Tab*] 1 tab PO BID 05/19/22 Sevelamer Carbonate [Renvela] 800 mg PO TID 05/19/22 Dicyclomine [Bentyl*] 1 tab PO TID PRN 09/01/22 Ondansetron [Zofran (Odt)*] 8 mg PO TID PRN 09/01/22 Tizanidine [Zanaflex*] 1 tab PO BID 09/01/22 - Past Medical/Surgical History Diabetic: No -: Chronic hypotension -: Hyperlipidemia -: Chronic anticoagulation use -: History of nephrolithiasis requiring stent placement -: Recurrent UTI -: End-stage renal disease -: CHF -: HTN -: A-Fib -: tubal ligation -: dialysis port -: cholecystectomy -: right broken wrist -: lasik -: cataracts removed - Family History Sister -: Cancer Notes: per pt, sister has lung cancer and is being treated for a "spot on her brain" - Social History Alcohol use: No CD- Drugs: No Caffeine use: Yes Review of Systems 10-point ROS is otherwise unremarkable Respiratory: Shortness of Breath Physical Examination - Physical Exam General: Alert, In no apparent distress HEENT: Atraumatic, PERRLA, Mucous membr. moist/pink, EOMI, Sclerae nonicteric Neck: Supple, 2+ carotid pulse no bruit, No LAD, Without JVD or thyroid abnormality Respiratory: Clear to auscultation bilaterally, Normal air movement, Discovery Guide ckles/rales (mild at the bases of the lungs) Cardiovascular: Regular rate/rhythm, Normal S1 S2 Gastrointestinal: Normal bowel sounds, No tenderness Musculoskeletal: No tenderness Integumentary: No rashes Neurological: Normal gait, Normal speech, Normal strength at 5/5 x4 extr, Normal tone, Normal affect Lymphatics: No axilla or inguinal lymphadenopathy - Studies Laboratory Data (last 24 hrs) 10/14/22 08:15: Sodium 135 L, Potassium 3.7, BUN 32 H, Creatinine 6.53 H*, Glucose 114 H, Magnesium 2.2, Total Bilirubin 1.1 H, AST 5 L, ALT 11 L, Alkaline Phosphatase 133 H 10/14/22 08:15: WBC 10.00, Hgb 8.9 L, Hct 27.8 L, Plt Count 187 Assessment and Plan - Problems (Diagnosis) (1) Acute diastolic (congestive) heart failure Current Visit: No Status: Acute Plan: will have Dr. Arce run her dialysis. If the patient has improved we can discharge her home tomorrow. (2) ESRD (end stage renal disease) on dialysis Current Visit: No Status: Chronic Plan: Dr. Arce to perform the dialysis Discharge Plan: Home Plan to discharge in: 24 Hours - Advance Directives Does patient have a Living Will: No Does patient have a Durable POA for Healthcare: No - Code Status/Comfort Care Code Status Assessed: No Code Status: Full Code Critical Care: No Time Spent Managing Pts Care (In Minutes): 40
[2022-10-14] MEDS ORDERED: DIGOXIN 0.125 MG TABLET PO SCH (12:00)
[2022-10-14 12:19] VITALS: BMI 37.5
[2022-10-14] MEDS: MIDODRINE HCL 5 MG TABLET PO SCH ×2 (13:12→20:19)
[2022-10-14] MEDS: SEVELAMER CARBONATE 800 MG TABLET PO SCH ×2 (13:12→20:19)
--- NOTE | 2022-10-14 15:06 | P.CNS ---
Date of Consult: 10/14/22 Reason for Consult: ESRD , fluid overload Primary Care Provider: Fco Chief Complaint: Chf exacerbation History of Present Illness: 66F w/ PMHx of ESRD on HD TTS, chronic diastolic heart failure, afib, anemia, & renal osteodystrophy, Pt using Oxygen at home pt was sent from HD unit for tachycardia pt with chronic HX of hypotension , on midodridne , she was [facility] to [facility] fo hypotension and brdaycardia, today presented to HD center , was tachycaric and sent to ER, in ER HR was controlled , but pt was hypoxic, CXR with pulmonary edema, ROS General : weakness, HEENT: denied dizziness or bl;urry vision Resp: SOB, denied cough or wheezes Cardiovascular: denied chest pain, palpitation GI: denies abdominal pain, diarrhea or constipation : denies dysuria, urgency, foamy urine or blood tinged urine Musculoskeletal: denies muscle aches, joint pain Endo: denies polyuria and and polydipsia Extre: denies pain numbness and swelling Physical exam General: AAOx3, NAD, obese HEENT PERRLA, moist mucose membrane neck: supple, no elevated JVD CHEST; diminished air entry B/l HEART : RRR. Normal S1,2 no murmur or rub Abd: soft, Nt Ext: edema , chronic venous stasis Skin : No rash A/P #End-stage renal disease on outpt HD TTS. HD today renal diet renal dose medications #CHF with pulmonary edema HD today low salt diet #Anemia of Chronic kidney disease. resume epogen # afib. rate controlled now # Intradialytic hypotension. on midodrine. time spend exam the patient face to face , discussing with patient , reviewing la and radiology date, placing order , discussing the case with staff and with other team consultan and hospitalist 65 min. Allergies cefepime Allergy (Verified 10/26/21 06:30) Hives codeine Allergy (Verified 05/20/22 05:03) Itching levofloxacin Allergy (Verified 10/26/21 06:30) Hives/Rash morphine Allergy (Verified 05/20/22 05:03) Itching Penicillins Allergy (Verified 10/26/21 06:30) Hives/Rash sulfamethoxazole [From Bactrim] Allergy (Verified 05/20/22 05:03) Hives trimethoprim [From Bactrim] Allergy (Verified 05/20/22 05:03) Hives Home Medications: Apixaban [Eliquis] 2.5 mg PO BID 05/19/22 Bumetanide 1 tab PO DAILY 05/19/22 Digoxin [Lanoxin] 1 tab PO T,TH,S 05/19/22 Metoprolol Tartrate 1 tab PO BID 05/19/22 Midodrine HCl 1 tab PO TID 05/19/22 Pantoprazole [Protonix Tab*] 1 tab PO BID 05/19/22 Sevelamer Carbonate [Renvela] 800 mg PO TID 05/19/22 Dicyclomine [Bentyl*] 1 tab PO TID PRN 09/01/22 Ondansetron [Zofran (Odt)*] 8 mg PO TID PRN 09/01/22 Tizanidine [Zanaflex*] 1 tab PO BID 09/01/22 - Past Medical/Surgical History Diabetic: No -: Chronic hypotension -: Hyperlipidemia -: Chronic anticoagulation use -: History of nephrolithiasis requiring stent placement -: Recurrent UTI -: End-stage renal disease -: CHF -: HTN -: A-Fib -: tubal ligation -: dialysis port -: cholecystectomy -: right broken wrist -: lasik -: cataracts removed - Family History Sister Medical History: Cancer Notes: per pt, sister has lung cancer and is being treated for a "spot on her brain" - Social History Alcohol use: No CD- Drugs: No Caffeine use: Yes Physical Examination Temp Pulse Resp BP Pulse Ox 98.4 F 90 20 134/63 98 10/14/22 12:00 10/14/22 12:00 10/14/22 12:00 10/14/22 12:00 10/14/22 12:00 Laboratory Data (last 24 hrs) 10/14/22 08:15: Sodium 135 L, Potassium 3.7, BUN 32 H, Creatinine 6.53 H*, Glucose 114 H, Magnesium 2.2, Total Bilirubin 1.1 H, AST 5 L, ALT 11 L, Alkaline Phosphatase 133 H 10/14/22 08:15: WBC 10.00, Hgb 8.9 L, Hct 27.8 L, Plt Count 187
[2022-10-14] MEDS: PANTOPRAZOLE 40MG TABLET PO SCH (20:18)
[2022-10-14] MEDS: TIZANIDINE 4 MG TABLET PO SCH (20:19)
[2022-10-14] MEDS: APIXABAN 2.5 MG TABLET PO SCH (20:19)
[2022-10-14] MEDS ORDERED: METOPROLOL XL 25 MG TAB PO ONE (20:36)
[2022-10-14] MEDS ORDERED: METOPROLOL TAR 25 MG TAB PO SCH (21:00)
[2022-10-14] MEDS: MORPHINE 4 MG/ML SYR IV PRN (21:16)
[2022-10-15] MEDS: MORPHINE 4 MG/ML SYR IV PRN (03:37)
[2022-10-15 06:27] LABS: Hematocrit 27.4 % (36.0-45.0); Lymphocytes % 8.9 % (15.3-44.8); MCV 98.4 fL (80-100); MPV 7.8 fL (7.6-11.3); RBC Red Blood Cell Count 2.78 M/uL (3.86-4.86)
[2022-10-15 06:48] LABS: Albumin 2.7 g/dL (3.4-5.0); Protein, Total 6.9 g/dL (6.4-8.2)
[2022-10-15 08:11] VITALS: BP 104/57; TEMP 98
[2022-10-15] MEDS ORDERED: METOPROLOL XL 50 MG TAB PO SCH (09:00)
[2022-10-15] MEDS ORDERED: BUMETANIDE 1 MG TABLET PO SCH (09:00)
[2022-10-15] MEDS: MIDODRINE HCL 5 MG TABLET PO SCH (09:20)
[2022-10-15] MEDS: PANTOPRAZOLE 40MG TABLET PO SCH (09:20)
[2022-10-15] MEDS: SEVELAMER CARBONATE 800 MG TABLET PO SCH (09:20)
[2022-10-15] MEDS: TIZANIDINE 4 MG TABLET PO SCH (09:21)
[2022-10-15] MEDS: APIXABAN 2.5 MG TABLET PO SCH (09:21)
[2022-10-15 11:13] VITALS: O2SAT 95
--- NOTE | 2022-10-15 11:17 | P.DS ---
Admission Date: 10/14/22 Discharge Date: 10/15/22 Primary Care Provider: Fco Disposition: ROUTINE DISCHARGE Discharge Condition: GOOD Reason for Admission: Chf exacerbation - Problems (1) Acute diastolic (congestive) heart failure Current Visit: No Status: Acute (2) ESRD (end stage renal disease) on dialysis Current Visit: No Status: Chronic Brief History of Present Illness: Patient is an office patient of [facility]. She has a history of chf and esrd. Went to dialysis today. She was found to be hypoxic. Was sent to the ER. CXR showed bilateral pleural infiltrates. The patient does get fluid overloaded quite frequently. She has some shortness of breath Hospital Course: Patient was admitted. Had Dr. Thao do her dialysis. 3.5lts removed. She states she's ready to go home. Will discharge her and have her follow up in the office. Thank you for allowing me to take part in her care. Vital Signs/Physical Exam: Temp Pulse Resp BP Pulse Ox 98 F 86 19 104/57 L 95 10/15/22 08:00 10/15/22 08:00 10/15/22 08:00 10/15/22 08:00 10/15/22 08:00 General: Alert, In no apparent distress HEENT: Atraumatic, PERRLA, EOMI Neck: Supple, JVD not distended Respiratory: Clear to auscultation bilaterally, Normal air movement Cardiovascular: Regular rate/rhythm, Normal S1 S2 Gastrointestinal: Normal bowel sounds, No tenderness Musculoskeletal: No tenderness Integumentary: No rashes Neurological: Normal speech, Normal tone, Normal affect Lymphatics: No axilla or inguinal lymphadenopathy Laboratory Data at Discharge: WBC 11.80 K/uL (4.3-10.9) H 10/15/22 06:02 Hgb 8.5 g/dL (12.0-15.0) L 10/15/22 06:02 Hct 27.4 % (36.0-45.0) L 10/15/22 06:02 Plt Count 191 K/uL (152-406) 10/15/22 06:02 Sodium 140 mmol/L (136-145) D 10/15/22 06:02 Potassium 4.0 mmol/L (3.5-5.1) 10/15/22 06:02 BUN 21 mg/dL (7-18) H 10/15/22 06:02 Creatinine 5.12 mg/dL (0.55-1.02) H* 10/15/22 06:02 Glucose 135 mg/dL (74-106) H 10/15/22 06:02 Magnesium 2.2 mg/dL (1.6-2.4) 10/14/22 08:15 Total Bilirubin 1.0 mg/dL (0.2-1.0) 10/15/22 06:02 AST 7 U/L (15-37) L 10/15/22 06:02 ALT 11 U/L (13-56) L 10/15/22 06:02 Alkaline Phosphatase 136 U/L (45-117) H 10/15/22 06:02 Home Medications: Apixaban [Eliquis] 2.5 mg PO BID 05/19/22 Bumetanide 1 tab PO DAILY 05/19/22 Digoxin [Lanoxin] 1 tab PO T,TH,S 05/19/22 Metoprolol Tartrate 1 tab PO BID 05/19/22 Midodrine HCl 1 tab PO TID 05/19/22 Pantoprazole [Protonix Tab*] 1 tab PO BID 05/19/22 Sevelamer Carbonate [Renvela] 800 mg PO TID 05/19/22 Dicyclomine [Bentyl*] 1 tab PO TID PRN 09/01/22 Ondansetron [Zofran (Odt)*] 8 mg PO TID PRN 09/01/22 Tizanidine [Zanaflex*] 1 tab PO BID 09/01/22 Diet: Renal Activity: Ad mari Followup: Ranjit Eagle MD [Primary Care Provider] - 1 Week Physician Review: Patient Assessed, Agree with Above Assessment and Plan Time spent managing pt's care (in minutes): 30
--- NOTE | 2022-10-19 17:55 | EKG ---
Test Date: 2022-10-14 Test Time: 20:08:52 News Camera Operator: AQUILES MEASUREMENT RESULTS: Intervals: Rate: 151 [place]: QRSD: 76 QT: 320 QTc: 507 [place]: P: [place]: QRS: 127 T: 15 INTERPRETIVE STATEMENTS: Atrial fibrillation with rapid ventricular response Possible Right ventricular hypertrophy Marked ST abnormality, possible inferior subendocardial injury Abnormal ECG Compared to ECG 10/14/2022 07:58:35 Ventricular premature complex(es) now present ST (T wave) deviation still present Electronically Signed On 10-19-22 17:48:33 KETTLE ROOM HELPER by Quentin Chamberlain
--- NOTE | 2022-10-19 17:56 | EKG ---
Test Date: 2022-10-14 Test Time: 07:58:35 Medieval English Literature Professor: SANJIV MEASUREMENT RESULTS: Intervals: Rate: 122 [place]: QRSD: 82 QT: 280 QTc: 399 [place]: P: [place]: QRS: 74 T: 256 INTERPRETIVE STATEMENTS: Atrial fibrillation with rapid ventricular response Nonspecific ST and T wave abnormality Abnormal ECG Compared to ECG 09/23/2022 09:38:51 ST (T wave) deviation now present Incomplete right bundle-branch block no longer present Right ventricular hypertrophy no longer present Early repolarization no longer present T-wave abnormality no longer present Possible ischemia no longer present Electronically Signed On 10-19-22 17:49:14 VASC TECH by Quentin Chamberlain
== END 2022-10-15 12:01 | disposition home or self-care (01) | DRG 291 ==
LOC: ER 07:47 → ERHOLD 11:29 → 2ND 12:19
PROVIDERS: ADMIT Internal Medicine; ATTEND Internal Medicine
PROC: 5A1D70Z Performance of Urinary Filtration, Intermittent, Less than 6 Hours Per Day (ICD-10-PCS; principal; 2022-10-14)
DX: I13.2 Hypertensive heart and chronic kidney disease with heart failure and with stage 5 chronic kidney disease, or end stage renal disease (principal); I50.31 Acute diastolic (congestive) heart failure; N18.6 End stage renal disease; J96.01 Acute respiratory failure with hypoxia; D63.1 Anemia in chronic kidney disease; I95.3 Hypotension of hemodialysis; E78.5 Hyperlipidemia, unspecified; I48.91 Unspecified atrial fibrillation; Z99.2 Dependence on renal dialysis; Z88.1 Allergy status to other antibiotic agents; Z88.0 Allergy status to penicillin; Z88.5 Allergy status to narcotic agent; Z79.01 Long term (current) use of anticoagulants; Z98.51 Tubal ligation status; Z90.49 Acquired absence of other specified parts of digestive tract; Z79.899 Other long term (current) drug therapy; Z20.822 Contact with and (suspected) exposure to COVID-19
CPT/HCPCS: 0240U; 36415; 71045; 80053; 82805; 83735; 83880; 84484; 85025; 90935; 93005; 96374; 99285; J1644; Q0162

== ENCOUNTER 2022-10-18 10:53 | Inpatient (IN) | payer OTHER, BC ==
--- OUTSIDE RECORDS SUMMARY | 2022-10-18 11:15 | XMS REPORT | Continuity of Care Document ---
:1955 Author Organization [facility] t Address [address] [place] [address] Care Team Providers Name Role Phone LORENA ANTONELLA Davis Primary Care Physician Unavailable Adam King Attending Clinician Unavailable Rober KINNEY, Yaritza Arroyo Attending Clinician Annalee KINNEY, Keith Pantoja Attending Clinician Tre Pennington MD Attending Clinician TRE PENNINGTON Attending Clinician Unavailable KORINA GUNN Attending Clinician Unavailable DO CY SOSA Attending Clinician Unavailable Weston KINNEY, Mary Godinez Attending Clinician [phone] Mary Heaton MD Attending Clinician Grzegorz KINNEY, Clifton Gamboa Attending Clinician [phone]- [phone] Pily KINNEY, Maddison Attending Clinician Taylor Cerna MA Attending Clinician Unavailable Quentin Chamberlain Attending Clinician Unavailable Ilana Attending Clinician Unavailable Jose C KINNEY, Taylor Laughlin Attending Clinician [phone] Laura Carbajal MD Attending Clinician Wendie KINNEY, Amos Attending Clinician Elroy Rutledge Attending Clinician Antonella Rodriguez Attending Clinician Avis KINNEY, Ashley Klein Attending Clinician [phone] Vern KINNEY, Travon Hadley Attending Clinician Shaikh NIRMAL, Gutierrez Attending Clinician Jena Cool DO Attending Clinician Radu KINNEY, Puneet Goodson Attending Clinician Claudio KINNEY, Greg Carpenter Attending Clinician Mic Aiken Attending Clinician Unavailable Chris Carter Attending Clinician Unavailable Ras ROBERTS, Phuong Attending Clinician Unavailable Jermaine KINNEY, Francisco Sunshine Attending Clinician Michelle Golden MD Attending Clinician [phone] Robert Young MD Attending Clinician [phone] Nishi Shelton MD Attending Clinician Scott Flower [...] Attending Clinician Antonella Rodriguez Admitting Clinician Unavailable YARITZA REID Admitting Clinician Unavailable SALVADOR GOMEZ Admitting Clinician Unavailable MADDISON WHARTON Admitting Clinician Unavailable Ranjit Eagle Admitting Clinician Unavailable Ilana Admitting Clinician Unavailable LAURA CARBAJAL Admitting Clinician Unavailable JENA COOL Admitting Clinician Unavailable MD GUTIERREZ LEAL Admitting Clinician Unavailable MICHELLE GOLDEN Admitting Clinician Unavailable MEAGAN_MAYTE_Porfirio_J Admitting Clinician Unavailable MD ASHLEY MARTÍNEZ Admitting Clinician Unavailable COURTNEY WHEAT Admitting Clinician Unavailable MD COURTNEY WHEAT Admitting Clinician Unavailable MARY HEATON Admitting Clinician Unavailable MD PATRICIO REID Admitting Clinician Unavailable MD MICHELLE GOLDEN Admitting Clinician Unavailable DR EDUIN BARRAGAN Admitting Clinician Unavailable Payers Payer Name Policy Type Policy Number Effective Date Expiration Date S ource MEDICARE [place]: [id number] 2021 Ventario 00:00:00 Problems Condition Condition Condition Status Onset Resolution Last Treating Co mments Source Name Details Category Date Date Treatment Clinician Date Hypotensio Hypotensio Disease Active 2021-[address] [facility] Chest pain Chest pain Disease Active [...] l Sepsis Sepsis Disease Active Methodi 07-18 00:00: Hospita 00 l ARF (acute ARF [...] Disease Active Overview: Method i stone stone [address] 00:00: g of this Hospita 00 note l might be different from the original. Added automatic ally from request for surgery [id number] NATALYA NATALYA Diagnosis Active 2021-02-24 Mem oria Active 02-14 12:03:00 l 02/14/2021 00:00: Vicente n [facility] [place] Symptomati Symptomati Disease Active Overview : Methodi c anemia c anemia 4-[address] 00:00: g of this Hospita 00 note l might be different from the original. Added automatic ally from request for surgery [id number] Acute Acute Disease Active Methodi gallstone gallstone [...] Active M ethodi of left of left 9[address] st leg leg 00:00: Hospita 00 l Bacteremia Bacteremia Disease Active M ethodi due to due to 9 st Pseudomona Pseudomona 00:00: Ho spita s s 00 l COLON COLON Diagnosis Active 2016-11-17 In moria CANCER CANCER 11-14 05:49:00 l SCREENING- SCREENING- 00:00: He sadiaann Z12.11 Z12.11 00 Active 11/14/2016 [place] R92.1 - R92.1 - Diagnosis Active 2016-04-16 Jourdan MAMMOGRAPH MAMMOGRAPH 01-31 15:55:00 l IC IC 00:01: Denis CALCIFCN CALCIFCN 00 FOUND ON FOUND ON Active 02/01/2016 [facility] [place] Z12.31 - Z12.31 - Diagnosis Active 2015-11-30 Jourdan ENCNTR ENCNTR 11-12 07:08:00 l SCREEN SCREEN 00:01: Denis MAMMOGRAM MAMMOGRAM 00 FOR MA FOR MA Active 11/12/2015 [facility] [place] RT WRIST RT WRIST Diagnosis Active 2016-12-28 [facility] DISTAL DISTAL 1- 02:03:00 l RADIUS RADIUS 09:00: Denis CLSD FX CLSD FX 00 Active 10/22/2015 [facility] Abnormal Abnormal Disease Active Overview: In thodi glucose glucose 7-[address] level level 00:00: g of this Hospita 00 note l might be different from the original. Data migrated from [employer] on 04/28/15.Da ta migrated from [employer] on 04/28/15.Da ta migrated from [facility] on 04/28/15. Obstructiv Obstructiv Disease [...] Problem Active 2016-05-15 Me moria (disorder) (disorder) 8- 00:23:22 l Active 00:00: Denis 06/10/2012 00 Problem 05/15/2016 Data migrated from [employer] on 03/20/15. MH OPID Brittany,MH OPID [place], SMR [place],S[facility] Cobalamin Cobalamin Disease Active [...] y on 03/20/15. Hypertensi Hypertens Problem Active 2011-0 2016-05-15 Memoria ve episode satnam 7-10 00:23:22 l (disorder) episode 00:00: Karen nn (disorder) 00 Active 04/30/2012 Problem 05/15/2016 Data migrated from [facility] on 03/20/15. OPID Brittany, OPID [place], SMR [place],[facility] Calcificat Problem Resolve 2022-04-22 Memoria ion of Calcificat d 03:11:55 l breast ion of Denis (finding) breast (finding) Resolved Problem 04/22/2022 [facility], OPID Brittany, OPID [place], SMR [place],[facility], [place] Acute Acute Problem Active 2020-02-08 Memor ia urinary urinary 22:36:35 l tract tract [place] infection infection (disorder) (disorder) Active Problem 02/08/2020 Medical Group Chronic Chronic Problem Active 2020-02-08 Me moria renal renal 22:36:35 l impairment impairment He rmann (disorder) (disorder) Active Problem 02/08/2020 Medical Group, OPID Brittany, OPID [place], SMR [place],[facility] [place] Benign Benign Problem Active 2022-04-22 Turner arnoldo essential essential 03:11:55 l hypertensi hypertensi He rmann on on (disorder) (disorder) Active Problem 04/22/2022 Medical Group, OPID Brittany, OPID [place], SMR [place],[facility], [place] Cardiorena Cardioren Problem Active 2022-04-22 Memoria l syndrome al 03:11:55 l (disorder) syndrome Herm connie (disorder) Active Problem 04/22/2022 Medical Group, [facility] [place], [place] Chronic Chronic Problem Active 2022-04-22 Me moria kidney kidney 03:11:55 l disease disease Denis (disorder) (disorder) Active Problem 04/22/2022 Medical Group, [facility] [place], [place] Chronic Chronic Problem Active 2022-04-22 Me moria kidney kidney 03:11:55 l disease disease [place] stage 3 stage 3 (disorder) (disorder) Active Problem 04/22/2022 [facility] Group, [facility] [place], [place] Chronic Chronic Problem Active 2022-04-22 Me moria pain pain 03:11:55 l (finding) (finding) Karoline rosales Active Problem 04/22/2022 [facility], [facility] [place], [place] Dependence Dependenc Problem Active 2022-04-22 Memoria on e on 03:11:55 l supplement supplement Jeevan tate al oxygen al oxygen (finding) (finding) Active Problem 04/22/2022 [facility], [place] Edema of Edema of Problem Active 2022-04-22 Memoria lower lower 03:11:55 l extremity extremity Herm connie (finding) (finding) Active Problem 04/22/2022 [facility], [facility] [place], [place] Hypertensi Hypertens Problem Active 2022-04-22 Memoria ve satnam 03:11:55 l disorder, disorder, Karoline connie systemic systemic arterial arterial (disorder) (disorder) Active Problem 04/22/2022 Medical Group,[facility] [place], OPID [place], [place] Hypertensi Hypertens Problem Active 2022-04-22 Memoria ve renal satnam renal 03:11:55 l disease disease Denis (disorder) (disorder) Active Problem 04/22/2022 Medical Group, [facility] [place], [place] Lymphedema Lymphedem Problem Active 2022-04-22 Memoria of lower a of lower 03:11:55 l extremity extremity Karoline rosales (disorder) (disorder) Active Problem 04/22/2022 [facility] Group, [facility] [place], [place] Morbid Morbid Problem Active 2022-04-22 Turner arnoldo obesity obesity 03:11:55 l (disorder) (disorder) Jeevan tate Active Problem 04/22/2022 Medical Group, OPID Brittany, OPID [place], SMR [place],[facility], [place] Post-disch Problem Active 2022-04-22 M sanjuanitaria arge Post-disch 03:11:55 l follow-up segundo Barrios (finding) follow-up (finding) Active Problem 04/22/2022 Medical Group, [place] Stasis Stasis Problem Active 2022-04-22 Turner arnoldo ulcer ulcer 03:11:55 l (disorder) (disorder) He rmann Active Problem 04/22/2022 Medical Group, [facility] [place], [place] Swelling - Swelling Problem Active 2022-04-22 Memoria edema - - edema - 03:11:55 l symptom symptom [place] (finding) (finding) Active Problem 04/22/2022 [facility] Group, [facility] [place], [place] Kidney Kidney Problem Active 2016-11-20 Turner arnoldo disease disease 03:07:28 l (disorder) (disorder) He rmann Active Problem 11/20/2016 [facility] [place] RIGHT RIGHT Diagnosis Active 2016-03-09 Mem oria WRIST WRIST 15:06:00 l DISTAL DISTAL [place] RADIUS RADIUS CLSD FX CLSD FX Active [facility] DISTAL DISTAL Diagnosis Active 2016-04-21 Me moria RADIUS RADIUS 09:46:00 l CLSD FX CLSD FX Denis Active [facility] Trace Long-term Long-term Problem Active 2022-04-22 Memoria current current 03:11:55 l use of use of Denis drug drug therapy therapy (situation (situation ) ) Active Problem 04/22/2022 Medical Group Cholestero Cholester Problem 2016-01-01 Memoria l ol 05:02:18 l (substance (substance He rmann ) ) Problem 01/01/2016 [facility] Sleep Sleep Problem 2016-01-01 Memor ia apnea apnea 05:02:18 l (finding) (finding) Herm connie Problem 01/01/2016 <sup>2</howell p>does not use cpap [facility] ESRD (end ESRD (end Disease Active [facility] renal renal Medical disease) disease) Center on on dialysis dialysis Acute Acute Problem Resolve 2016-05-15 2016-05-15 Memoria otitis otitis d 4-24 00:23:22 00:23:22 l media media 00:00: [place] (disorder) (disorder) 00 Resolved 02/12/2013 Problem 05/15/2016 Data migrated from [employer] on 05/08/15. 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 12-18 01:18:13 01:18:13 l (current) (current) 21:46: Herm connie drug drug 00 therapy therapy 10/17/2021 Medical Group Other Other Problem 2020-102021-10-20 2021-10-20 M emoria hyperlipid hyperlipid 12-18 01:18:13 01:18:13 l emia emia 21:45: Denis 10/17/2021 00 Medical Group Essential Essential Problem 2020-102021-10-20 2021-10-20 Memoria (primary) (primary) 12-18 01:18:13 01:18:13 l hypertensi hypertensi 21:44: He sadiaann on on 10/17/2021 Medical Group Muscle Muscle Problem 2020-102021-10-20 2021-10-20 Memoria spasm of spasm of 12-18 01:18:13 01:18:13 l back back 21:39: Denis 10/17/2021 00 Medical Group Low back Low back Problem 2020-102021-10-20 2021-10-20 Memoria pain, pain, 12-18 01:18:13 01:18:13 l unspecifie unspecifie 21:38: Jeevan gaviria 00 10/17/2021 Medical Group Dependence Dependenc Problem 2020-102021-09-12 2021-09-12 Memoria on e on 11-09 01:29:16 01:29:16 l supplement supplement 21:17: Jeevan sandhu oxygen al oxygen 00 09/09/2021 Medical Group Unsteadine Unsteadin Problem 2020-102021-09-12 2021-09-12 Memoria ss on feet ess on 11-09 01:29:16 01:29:16 l feet 21:13: Denis 09/09/2021 00 Medical Group Weakness Weakness Problem 2020-102021-09-12 2021-09-12 Memoria 09/09/202111-09 01:29:16 01:29:16 l 09/12/2021 21:13: Vicente davis 00 Medical Group Allergies, Adverse Reactions, Alerts Allergy Allergy Status Severity Reaction(s) Onset Inactive Treating Comm ents Source Name Type Date Date Clinician SULFAMET Allergy Active 2021-[address] [facility] HOXAZOLE [...] PENICILL Allergy Active 2021-[address] [facility] [facility]03 [facility] QUINOLON Allergy Active 2021-[address] ES 2-03 [facility] Morphine Propensi Active Itching 2021-10 [facility] adverse 00:00: Medical reaction 00 Center s Penicill Propensi Active 2021-[address] in ty to 2-03 [facility] adverse 00:00: Medical reaction 00 Center s Quinolon Propensi Active 2021-[address] es ty to 11-24 [facility] adverse 00:00: Medical reaction 00 Center s Sulfamet Propensi Active 2021-[address] hoxazole ty to 11-24 [facility] -Trimeth adverse 00:00: Medical oprim reaction 00 Center s Cefepime Propensi Active 2021-[address] ty to 11-24 [facility] adverse 00:00: Medical reaction 00 Center s Codeine Propensi Active 2021-[address] ty to 11-24 [facility] adverse 00:00: Medical reaction 00 Center s Levoflox Propensi Active 2021-[address] acin ty to 11-24 [facility] adverse 00:00: Medical reaction 00 Center s codeine DA Active [facility] 5-13 Clear 00:00: Rodriguez 00 [facility] sulfamet DA Active [facility] hoxazole 5-13 Clear 00:00: Omer 00 [facility] trimetho DA Active [facility] prim 5-13 Clear 00:00: Omer [facility] Penicill DA Active U AN INFANT [facility] A ins 5-06 Clear 00:00: Omer [facility] cefepime DA Active U [facility] 5-06 Clear 00:00: Omer 00 [facility] levoflox DA Active U [facility] acin 5-06 Clear 00:00: Omer [facility] Sulfamet Propensi Active Other (See Unable to [...] adverse 00:00: as an Hospita reaction 00 l s to drug penicill penicill Active Memori a ins<sup> ins<sup> l 1</sup> 1</sup> [place] codeine< codeine< Active Memori a sup>2</s sup>2</s l up> up> Denis cefepime cefepime Active Memori a l Denis Levaquin Levaquin Active Memori a l [place] penicill penicill Active Memori a ins<sup> ins<sup> l 2</sup> 2</sup> [place] codeine codeine Active Memoria l [place] Bactrim Bactrim Active Memoria l Denis penicill penicill Active Memori a ins ins l Denis Family History Family Member Diagnosis Comments Start Date Stop Date Source Natural father Alcohol abuse [facility] Maternal grandfather Meth [facility] Maternal grandmother No Known Problems [facility] Natural mother No Known Problems Met [facility] Paternal grandfather No Known Problems [facility] Paternal grandmother Heart disease [facility] Natural sister Cancer [facility] Social History Social Habit Start Date Stop Date Quantity Comments Source History [facility] Drinks History [facility] Alcohol intake 2022-08-26 2022-08-26 Ex-drinker [facility] 00:00:00 00:00:00 (finding) Hospital History SDOH 2021-07-13 2021-07-13 5 [facility] 00:00:00 00:00:00 Hospital History SDOH IPV [...] Methodi st Scarcity 00:00:00 00:00:00 Hospital History [facility] 2021-07-13 2021-07-13 2 [facility] Med 00:00:00 00:00:00 Hospital History [facility] 2021-07-13 2021-07-13 2 [facility] Non-Med 00:00:00 00:00:00 Hospita l History [facility] 2021-07-13 2021-07-13 2 [facility] Unable to 00:00:00 00:00:00 Hospita l Pay History [facility] 2021-07-13 2021-07-13 1 [facility] Places 00:00:00 00:00:00 Hospital Lived History [facility] 2021-07-13 2021-07-13 2 [facility] Homeless 00:00:00 00:00:00 Hospital Last Year Alcohol Comment 2021-02-03 2021-02-03 rarely [facility] 00:00:00 00:00:00 Hospital History [facility] 2020-12-17 2020-12-17 1 [facility] Frequency 00:00:00 00:00:00 Hospita l Social History 2020-09-15 2020-09-15 [facility] 15:59:50 15:59:50 Tobacco use and 2019-06-26 2019-06-26 Smokeless tobacco Me [facility]odist exposure 00:00:00 00:00:00 non-user Hospital Sex Assigned At [address] [facility] 00:00:00 00:00:00 [facility] Center Smoking Status Start Date Stop Date Source Social [facility] Medications Ordered Filled Start Stop Current Ordering [...] Medic al 40 MG 20 Center tablet brimonidine 2021-10 Yes 1[drp] Q.5D 1 drop [...] 5mg Take 1 [facility] (PROAMATINE 2-07 02-05 tablet (5 Pari kes ) 5 MG 00:00: 23:59 mg total) Medic al tablet 00 :00 by mouth 3 Center (three) times daily before meals for 60 days. midodrine 2021-10- Yes 5mg Take 1 [facility] (PROAMATINE 2-07 02-05 tablet (5 Pari kes ) 5 MG 00:00: 23:59 mg total) Medic al tablet 00 :00 by mouth 3 Center (three) times daily before meals for 60 days. midodrine 2021-10- No 10mg Q.[id number] Take [address] (PROAMATINE 2-06 12-06 [id number] by mouth 3 [facility] ) 10 MG 19:03: 00:00 3D (three) Medica l tablet 43 :00 times Center daily. digoxin 2021-10- No 125ug Take [address] (LANOXIN) 2- 12-06 mcg by [facility] 0.125 MG 19:03: 00:00 mouth 3 Medic al tablet 43 :00 times per Center week . metoprolol 2021-10- No 25mg Q.5D Take [address] tartrate 11-27 by mouth 2 Luke s (LOPRESSOR) 19:03: 00:00 (two) Medi alexandre 25 MG 43 :00 times Center tablet daily. digoxin 2021-10- No 125ug Take [address] (LANOXIN) 11-27- mcg by [facility] 0.125 MG 19:03: 00:00 mouth 3 Medic al tablet 43 :00 times per Center week . metoprolol 2021-10 No 25mg Q.5D Take [address] tartrate 11-27- by mouth 2 Luke s (LOPRESSOR) 19:03: 00:00 (two) Medi alexandre 25 MG 43 :00 times Center tablet daily. midodrine 2021-10 No 10mg Q.[id number] Take [address] (PROAMATINE 11-27 [id number] by mouth 3 [facility] ) 10 MG 19:03: 00:00 3D (three) Medica l tablet 43 :00 times Center daily. mINOCYCLine 2021-10 Yes 100mg Take [address] [facility] (MINOCIN,DY 2-06 capsule [facility] NACIN) 100 00:00: (100 mg Medi alexandre MG capsule 00 total) by Cent er mouth every 12 (twelve) hours. mINOCYCLine 2021-10 Yes 100mg Take [address] [facility] (MINOCIN,DY 2-06 capsule [facility] NACIN) 100 00:00: (100 mg Medi alexandre MG capsule 00 total) by Cent er mouth every 12 (twelve) hours. promethazin 2021-10- No 12.5mg Take [address] e 11-27-21 tablet [facility] (PHENERGAN) 00:00: 23:59 (12.5 mg M edical 12.5 MG 00 :00 total) by Center tablet mouth every 6 (six) hours as needed for Nausea for up to 15 days. promethazin 2021-10- No 12.5mg Take [address] e 11-27 12-21 tablet [facility] (PHENERGAN) 00:00: 23:59 (12.5 mg M edical 12.5 MG 00 :00 total) by Center tablet mouth every 6 (six) hours as needed for Nausea for up to 15 days. apixaban 2021-10 No 2.5mg Q.5D Take 1 Metho di [...] 11 evening. l sucroferric 2021-10 Yes 500mg Q.[id number] Chew 500 Methodi oxyhydroxid 10-[id number] e 18:12: 3D (three) [...] (two) times a day. acetaminoph 2021- [place] [id number] 1{tbl} Q.5D Take 1 Methodi en-codeine 06-[address] (TYLENOL 00:00: 04:59 mouth 2 Hospi ta WITH 00 :00 (two) l CODEINE #3) times a 300-30 mg day for 10 per tablet days .chronic pain. acetaminoph 2021- [place] [id number] 1{tbl} Q.5D Take 1 Methodi en-codeine 06-28 [...] times a day. sevelamer 2021- No 1600mg Q.[id number] Take 1,600 Methodi (RENVELA) 06-[id number] 800 mg 18:50: 00:00 3D mouth 3 Hospita tablet 58 :00 (three) l times a day with meals. oxyCODONE 2021- [place] [id number] 5mg Q4H Take 5 mg M ethodi (ROXICODONE 06-[address] ) 5 MG 18:50: 00:00 every 4 Hospita immediate 30 :00 (four) l release hours as tablet needed for moderate pain .acute pain. tiZANidine Yes 4mg Q.5D Take 1 Metho di (ZANAFLEX) 06-22 tablet (4 st 4 MG tablet 00:00: mg total) H ospita 00 by mouth 2 l (two) times a day as needed for muscle spasms. promethazin Yes 25mg Q6H Take 1 Meth aiden e 8-01 tablet (25 st (PHENERGAN) 00:00: mg total) H ospita 25 MG 00 by mouth l tablet every 6 (six) hours as needed for vomiting or nausea. promethazin 0 Yes 50mg Q.[id number] Take 1 Methodi e 7-28 [id number] tablet (50 st (PHENERGAN) 00:00: 3D mg [...] 54 :00 daily. l Zithromax Yes See Memoria Z-Gómez 250 6-29 Instructio l mg oral 21:14: ns, Take 2 Herm connie tablet 00 tablets by mouth the first day then 1 tablet by mouth days 2-5. (Pt is on hemodialys is)., X 5 day, # 6 tab, 0 Refill(s), Pharmacy: [facility], 170.18, cm, 04/19/22 14:52:00 CDT, Height, 106.818, kg, 04/19/22 14... Zithromax 2-0 Yes See [employer] 250 6-29 Instructio l mg oral 21:14: ns, Take 2 Herm connie tablet 00 tablets by mouth the first day then 1 tablet by mouth days 2-5. (Pt is on hemodialys is)., X 5 day, # 6 tab, 0 Refill(s), Pharmacy: [facility], 170.18, cm, 04/19/22 14:52:00 CDT, Height, 106.818, kg, 04/19/22 14... Zithromax 2-0 Yes See [employer] 250 6-29 Instructio l mg oral 21:14: ns, Take 2 Herm connie tablet 00 tablets by mouth the first day then 1 tablet by mouth days 2-5. (Pt is on hemodialys is)., X 5 day, # 6 tab, 0 Refill(s), Pharmacy: [facility], 170.18, cm, 04/19/22 14:52:00 CDT, Height, 106.818, kg, 04/19/22 14... Zithromax 2021-0 Yes See [employer] 250 6-29 Instructio l mg oral 21:14: ns, Take 2 Herm connie tablet 00 tablets by mouth the first day then 1 tablet by mouth days 2-5. (Pt is on hemodialys is)., X 5 day, # 6 tab, 0 Refill(s), Pharmacy: [facility], 170.18, cm, 04/19/22 14:52:00 CDT, Height, 106.818, kg, 04/19/22 14... Zithromax 2-0 Yes See [employer] 250 6-29 Instructio l mg oral 21:14: ns, Take 2 Herm connie tablet 00 tablets by mouth the first day then 1 tablet by mouth days 2-5. (Pt is on hemodialys is)., X 5 day, # 6 tab, 0 Refill(s), Pharmacy: [facility], 170.18, cm, 04/19/22 14:52:00 CDT, Height, 106.818, kg, 04/19/22 14... Zithromax 2022-0 Yes See Memoria Z-Gómez 250 6-29 Instructio l mg oral 21:14: ns, Take 2 Herm connie tablet 00 tablets by mouth the first day then 1 tablet by mouth days 2-5. (Pt is on hemodialys is)., X 5 day, # 6 tab, 0 Refill(s), Pharmacy: [facility] [place], 170.18, cm, 04/19/22 14:52:00 CDT, Height, 106.818, kg, 04/19/22 14... Velphoro 2022-0 Yes 500 mg, Memori a 6-29 CHEW, l 20:13: Daily, [place] 00 take with food, 0 Refill(s) Velphoro [...] Memori a 6-29 CHEW, l 20:13: Daily, [place] 00 take with food, 0 Refill(s) Velphoro 2022-0 Yes 500 mg, Memori a 6-29 CHEW, l 20:13: Daily, [place] 00 take with food, 0 Refill(s) sevelamer 2022-0 Yes 2,400 mg = Me moria carbonate 6-29 3 tab, PO, l 800 mg oral 20:12: TID-Meals, Denis tablet 00 # 270 tab, 0 Refill(s) sevelamer 2022-0 Yes 2,400 mg = Me moria carbonate 6-29 3 tab, PO, l 800 mg oral 20:12: TID-Meals, [place] tablet 00 # 270 tab, 0 Refill(s) sevelamer 2022-0 Yes 2,400 mg = Me moria carbonate 6-29 3 tab, PO, l 800 mg oral 20:12: TID-Meals, [place] tablet 00 # 270 tab, 0 Refill(s) sevelamer 2021-0 Yes 2,400 mg = Me moria carbonate 6-29 3 tab, PO, l 800 mg oral 20:12: TID-Meals, [place] tablet 00 # 270 tab, 0 Refill(s) sevelamer 2-0 Yes 2,400 mg = Me moria carbonate 6-29 3 tab, PO, l 800 mg oral 20:12: TID-Meals, [place] tablet 00 # 270 tab, 0 Refill(s) sevelamer 2021-0 Yes 2,400 mg = Me moria carbonate [...] tab, PO, l oral 20:11: Daily, 0 [place] enteric 00 Refill(s) coated tablet pantoprazol 2-0 [...] tab, PO, l oral 20:11: Daily, 0 [place] enteric 00 Refill(s) coated tablet oxyCODONE 5 [...] Dissolve tab under tongue, 0 Refill(s) ondansetron 0 Yes 4 mg = 1 Me moria 4 mg oral 6-29 tab, PO, l tablet, 20:09: TID, PRN Vicente n disintegrat 00 Nausea / ing Vomiting, Dissolve tab under tongue, 0 Refill(s) ondansetron 0 Yes 4 mg = 1 Me moria 4 mg oral 6-29 tab, PO, l tablet, 20:09: TID, PRN Vicente n disintegrat 00 Nausea / ing Vomiting, Dissolve tab under tongue, 0 Refill(s) Nitazoxanid 0 Yes 500 mg = 1 Memoria e 500 mg 6-29 tab, PO, l oral tablet 20:08: Q12H, 0 [place] 00 Refill(s) Nitazoxanid 0 Yes 500 mg = 1 Memoria e 500 mg 6-29 tab, PO, l oral tablet 20:08: Q12H, 0 [place] 00 Refill(s) Nitazoxanid 0 Yes 500 mg = 1 Memoria e 500 mg 6-29 tab, PO, l oral tablet 20:08: Q12H, 0 [place] 00 Refill(s) Nitazoxanid 0 Yes 500 mg = 1 Memoria e 500 mg 6-29 tab, PO, l oral tablet 20:08: Q12H, 0 [place] 00 Refill(s) Nitazoxanid 0 Yes 500 mg = 1 Memoria e 500 mg 6-29 tab, PO, l oral tablet 20:08: Q12H, 0 [place] 00 Refill(s) Nitazoxanid 0 Yes 500 mg = 1 Memoria e [...] PO, l mg oral 20:07: BID, 0 [place] tablet 00 Refill(s) metoprolol 2021-0 Yes 25 mg = 1 Me moria tartrate 25 6-29 tab, PO, l mg oral 20:07: BID, 0 [place] tablet 00 Refill(s) metoprolol 2-0 Yes 25 mg = 1 Me moria [...] PO, l mg oral 20:07: BID, 0 [place] tablet 00 Refill(s) methocarbam 2021-0 Yes 250 mg = Me moria ol 500 mg 6-29 0.5 tab, l oral tablet 20:05: PO, TID, 0 [place] 00 Refill(s) methocarbam 2021-0 Yes 250 mg = Me moria ol 500 mg 6-29 0.5 tab, l oral tablet 20:05: PO, TID, 0 [place] 00 Refill(s) methocarbam 2021-0 Yes 250 mg = Me moria ol 500 mg 6-29 0.5 tab, l oral tablet 20:05: PO, TID, 0 [place] 00 Refill(s) methocarbam 2021-0 Yes 250 mg [...] l oral tablet 20:05: PO, TID, 0 [place] 00 Refill(s) Alphagan P 2021-0 Yes 1 drp, Memor ia 0.1% 6-29 OPTH, Q12H l ophthalmic 20:04: [place] solution 00 folic acid 2021-0 Yes 1 mg, PO, Me moria 6-29 Daily, 0 l 20:04: Refill(s) [place] Alphagan P 2021-0 Yes 1 drp, Memor ia 0.1% -29 OPTH, Q12H l ophthalmic 20:04: [place] solution 00 folic acid 2021-0 Yes 1 mg, PO, Me moria 6-29 Daily, 0 l 20:04: Refill(s) [place] Alphagan P 2021-0 Yes 1 drp, Memor ia 0.1% - OPTH, Q12H l ophthalmic 20:04: [place] solution 00 folic acid 2021-0 Yes 1 mg, PO, Me moria 6-29 Daily, 0 l 20:04: Refill(s) [place] Alphagan P 0 Yes 1 drp, Memor ia 0.1% - OPTH, Q12H l ophthalmic 20:04: [place] solution 00 folic acid 2021-0 Yes 1 mg, PO, Me moria 6-29 Daily, 0 l 20:04: Refill(s) [place] Alphagan P 2021-0 Yes 1 drp, Memor ia 0.1% - OPTH, Q12H l ophthalmic 20:04: [place] solution 00 folic acid 2021-0 Yes 1 mg, PO, Me moria 6-29 Daily, 0 l 20:04: Refill(s) [place] Alphagan P 2021-0 Yes 1 drp, Memor ia 0.1% -29 OPTH, Q12H l ophthalmic 20:04: [place] solution 00 folic acid 2021-0 Yes 1 mg, PO, Me moria 6-29 Daily, 0 l 20:04: Refill(s) [place] Oxygen 2021-0 Yes 1 btl, Memoria 6- MISC, l 20:03: Daily, 2 [place] 00 liters, 0 Refill(s) Oxygen 2021-0 Yes 1 btl, Memoria 6-29 MISC, l 20:03: Daily, 2 [place] 00 liters, 0 Refill(s) Oxygen 2021-0 Yes 1 btl, Memoria 6-29 MISC, l 20:03: Daily, 2 [place] 00 liters, 0 Refill(s) Oxygen 2021-0 Yes 1 btl, Memoria 6-29 MISC, l 20:03: Daily, 2 [place] 00 liters, 0 Refill(s) Oxygen 2021-0 Yes 1 btl, Memoria 6-29 MISC, l 20:03: Daily, 2 [place] 00 liters, 0 Refill(s) Oxygen 2021-0 Yes 1 btl, Memoria 6-29 MISC, l 20:03: Daily, 2 [place] 00 liters, 0 Refill(s) Eliquis 2.5 0 Yes 2.5 mg, Mem oria mg oral 6-29 PO, Q12H, l tablet 20:02: tab, 0 [place] 00 Refill(s) Eliquis 2.5 0 Yes 2.5 mg, Mem oria mg oral 6-29 PO, Q12H, l tablet 20:02: tab, 0 [place] 00 Refill(s) Eliquis 2.5 0 Yes 2.5 mg, Mem oria mg oral 6-29 PO, Q12H, l tablet 20:02: tab, 0 [place] 00 Refill(s) Eliquis 2.5 0 Yes 2.5 mg, Mem oria mg oral 6-29 PO, Q12H, l tablet 20:02: tab, 0 [place] 00 Refill(s) Eliquis 2.5 0 Yes 2.5 mg, Mem oria mg oral 6-29 PO, Q12H, l tablet 20:02: tab, 0 [place] 00 Refill(s) Eliquis 2.5 0 Yes 2.5 mg, Mem oria mg oral 6-29 PO, Q12H, l tablet 20:02: tab, 0 [place] 00 Refill(s) doxycycline 0 2021- No 200mg Q.5D Take 200 [facility] (VIBRAMYCIN 6-26 06-[address] ) 100 MG 13:07: 00:00 mouth 2 Hospi ta capsule 01 :00 (two) l times a day. Take 200mg (x2 100mg capsules). Per patient started taking March 29, 2022 glucosam/ch 2021- No 1{tbl} Q.5D Take 1 M riccoodi on-msm1/C/m 04-[address] [facility] 13:07: 00:00 mouth 2 Hospi ta (OSTEO [...] for 30 days. methocarbam 2021- No 250mg Q.07200517 Take 0.5 [facility] o[facility] 04-[id number] (ROBAXIN) 00:00: 04:59 3D (250 [...] day for 7 days. oxyCODONE 2021- No 36756 5mg Q4H Take 1 Meth aiden (ROXICODONE [...] 5-16 tab, PO, l tablet 18:09: Bedtime, [place] 00 PRN NEEDED FOR MUSCLE SPASM, # 15 tab, 0 Refill(s), Pharmacy: [facility] #[id number], 165.1, cm, 10/17/21 15:23:00 [employer], Height, 107.301, kg, 10/17/21 15:23:00 [employer], Weight tizanidine 2022-0 Yes 4 mg = 1 Mem oria 4 mg oral 5-16 tab, PO, l tablet 18:09: Bedtime, [place] 00 PRN NEEDED FOR MUSCLE SPASM, # 15 tab, 0 Refill(s), Pharmacy: [facility][id number], 165.1, cm, 10/17/21 15:23:00 [employer], Height, 107.301, kg, 10/17/21 15:23:00 [employer], Weight tizanidine 2022-0 Yes 4 mg = 1 Mem oria 4 mg oral 5-16 tab, PO, l tablet 18:09: Bedtime, [place] 00 PRN NEEDED FOR MUSCLE SPASM, # 15 tab, 0 Refill(s), [facility]: [facility][id number], 165.1, cm, 10/17/21 15:23:00 [employer], Height, 107.301, kg, 10/17/21 15:23:00 [employer], Weight tizanidine 2022-0 Yes 4 mg = 1 Mem oria 4 mg oral 5-16 tab, PO, l tablet 18:09: Bedtime, [place] 00 PRN NEEDED FOR MUSCLE SPASM, # 15 tab, 0 Refill(s), [facility]: [facility][id number], 165.1, cm, 10/17/21 15:23:00 [employer], Height, 107.301, kg, 10/17/21 15:23:00 [employer], Weight tizanidine 2022-0 Yes 4 mg = 1 Mem oria 4 mg oral 5-16 tab, PO, l tablet 18:09: Bedtime, [place] 00 PRN NEEDED FOR MUSCLE SPASM, # 15 tab, 0 Refill(s), Pharmacy: [facility] #[id number], 165.1, cm, 10/17/21 15:23:00 [employer], Height, 107.301, kg, 10/17/21 15:23:00 [employer], Weight tizanidine 2022-0 Yes 4 mg = 1 Mem oria 4 mg oral 5-16 tab, PO, l tablet 18:09: Bedtime, [place] 00 PRN NEEDED FOR MUSCLE SPASM, # 15 tab, 0 Refill(s), Pharmacy: [facility] #[id number], 165.1, cm, 10/17/21 15:23:00 [employer], Height, 107.301, kg, 10/17/21 15:23:00 [employer], Weight nitrofurant 2021- No 100mg Q.5D Take [...] as directed by MD. traMADoL 2021- [place] [address] 50mg Q.91922110 Take 1 [facility] (ULTRAM) 50 12-28 03-20 [id number] tablet (50 st mg tablet 00:00: 04:59 [...] PO, l Tablet 22:01: BID, X 5 [place] [Zofran] 00 day, # 10 tab, 0 Refill(s), Pharmacy: [facility] #[id number], 165.1, cm, 10/17/21 15:23:00 [employer], Height, 107.301, kg, 12/27/21 15:23:00 [employer], Weight Ondansetron 2022-0 Yes 4 mg = 1 Me moria 4 MG Oral 1-07 tab, PO, l Tablet 22:01: BID, X 5 Denis [Zofran] day, # 10 tab, 0 Refill(s), Pharmacy: [facility] #[id number], 165.1, cm, 10/17/21 15:23:00 [employer], Height, 107.301, kg, 10/17/21 15:23:00 [employer], Weight Ondansetron 2022-0 Yes 4 mg = 1 Me moria 4 MG Oral 1-07 tab, PO, l Tablet 22:01: BID, X 5 [place] [Zofran] day, # 10 tab, 0 Refill(s), Pharmacy: [facility] #[id number], 165.1, cm, 10/17/21 15:23:00 [employer], Height, 107.301, kg, 10/17/21 15:23:00 [employer], Weight Ondansetron 2022-0 Yes 4 mg = 1 Me moria 4 MG Oral 1-07 tab, PO, l Tablet 22:01: BID, X 5 [place] [Zofran] day, # 10 tab, 0 Refill(s), Pharmacy: [facility] #[id number], 165.1, cm, 10/17/21 15:23:00 [employer], Height, 107.301, kg, 10/17/21 15:23:00 [employer], Weight Ondansetron 2022-0 Yes 4 mg = 1 Me moria 4 MG Oral 1-07 tab, PO, l Tablet 22:01: BID, X 5 [place] [Zofran] day, # 10 tab, 0 Refill(s), Pharmacy: [facility] #[id number], 165.1, cm, 10/17/21 15:23:00 [employer], Height, 107.301, kg, 10/17/21 15:23:00 [employer], Weight Ondansetron 2022-0 Yes 4 mg = 1 Me moria 4 MG Oral 1-07 tab, PO, l Tablet 22:01: BID, X 5 [place] [Zofran] day, # 10 tab, 0 Refill(s), Pharmacy: [facility] #[id number], 165.1, cm, 10/17/21 15:23:00 [employer], Height, 107.301, kg, 10/17/21 15:23:00 [employer], Weight atorvastati 2020-10 Yes 10 mg = 1 M emoria n 10 mg 2-27 tab, PO, l oral tablet 21:45: Bedtime, # Denis 00 90 tab, 0 Refill(s), Pharmacy: [facility] #[id number], 165.1, cm, 10/17/21 15:23:00 [employer], Height, 107.301, kg, 10/17/21 15:23:00 [employer], Weight atorvastati 2020-10 Yes 10 mg = 1 M emoria n 10 mg 2-27 tab, PO, l oral tablet 21:45: Bedtime, # [place] 00 90 tab, 0 Refill(s), Pharmacy: [facility] #[id number], 165.1, cm, 10/17/21 15:23:00 [employer], Height, 107.301, kg, 10/17/21 15:23:00 [employer], Weight atorvasti 2020-10 Yes 10 mg = 1 M emoria n 10 mg 2-27 tab, PO, l oral tablet 21:45: Bedtime, # [place] 00 90 tab, 0 Refill(s), Pharmacy: [facility] #[id number], 165.1, cm, 10/17/21 15:23:00 [employer], Height, 107.301, kg, 10/17/21 15:23:00 [employer], Weight atorvastati 2020-10 Yes 10 mg = 1 M emoria n 10 mg 2-27 tab, PO, l oral tablet 21:45: Bedtime, # Denis 00 90 tab, 0 Refill(s), Pharmacy: [facility] #[id number], 165.1, cm, 10/17/21 15:23:00 [employer], Height, 107.301, kg, 10/17/21 15:23:00 [employer], Weight atorvastati 2020-10 Yes 10 mg = 1 M emoria n 10 mg 2-27 tab, PO, l oral tablet 21:45: Bedtime, # Denis 00 90 tab, 0 Refill(s), Pharmacy: [facility] #[id number], 165.1, cm, 10/17/21 15:23:00 [employer], Height, 107.301, kg, 10/17/21 15:23:00 [employer], Weight atorvastati 2020-10 Yes 10 mg = 1 M emoria n 10 mg 2-27 tab, PO, l oral tablet 21:45: Bedtime, # [place] 00 90 tab, 0 Refill(s), Pharm[facility]: [facility][id number], 165.1, cm, 10/17/21 15:23:00 [employer], Height, 107.301, kg, 10/17/21 15:23:00 [employer], Weight tizanidine 2020-10 Yes 4 mg = 1 Mem oria 4 mg oral 2-27 tab, PO, l tablet 21:40: Bedtime, [place] 00 PRN for muscle spasm, # 30 tab, 0 Refill(s), Pharmacy: [facility] #[id number], 165.1, cm, 10/17/21 15:23:00 [employer], Height, 107.301, kg, 10/17/21 15:23:00 [employer], Weight Acetaminoph 2020-10 Yes 1 tab, PO, Memoria en 325 MG / 2-27 Q12H, PRN l tramadol 21:40: for pain, Herm connie hydrochlori 00 X 15 day, de 37.5 MG # 30 tab, Oral Tablet 0 [Ultracet] Refill(s), Pharmacy: [facility] #[id number], 165.1, cm, 10/17/21 15:23:00 [employer], Height, 107.301, kg, 10/17/21 15:23:00 [employer], Weight tizanidine 2020-10 Yes 4 mg = 1 Mem oria 4 mg oral 2-27 tab, PO, l tablet 21:40: Bedtime, [place] 00 PRN for muscle spasm, # 30 tab, 0 Refill(s), Pharmacy: [facility] #[id number], 165.1, cm, 10/17/21 15:23:00 [employer], Height, 107.301, kg, 10/17/21 15:23:00 [employer], Weight Acetaminoph 2020-10 Yes 1 tab, PO, Memoria en 325 MG / 2-27 Q12H, PRN l tramadol 21:40: for pain, Herm connie hydrochlori 00 X 15 day, de 37.5 MG # 30 tab, Oral Tablet 0 [Ultracet] Refill(s), Pharmacy: [facility] #[id number], 165.1, cm, 10/17/21 15:23:00 [employer], Height, 107.301, kg, 10/17/21 15:23:00 [employer], Weight tizanidine 2020-10 Yes 4 mg = 1 Mem oria 4 mg oral 2-27 tab, PO, l tablet 21:40: Bedtime, [place] 00 PRN for muscle spasm, # 30 tab, 0 Refill(s), Pharmacy: [facility] #[id number], 165.1, cm, 10/17/21 15:23:00 [employer], Height, 107.301, kg, 10/17/21 15:23:00 [employer], Weight Acetaminoph 2020-10 Yes 1 tab, PO, Memoria en 325 MG / 2-27 Q12H, PRN l tramadol 21:40: for pain, Herm connie hydrochlori 00 X 15 day, de 37.5 MG # 30 tab, Oral Tablet 0 [Ultracet] Refill(s), [id number], 165.1, cm, 10/17/21 15:23:00 [employer], Height, 107.301, kg, 10/17/21 15:23:00 [employer], Weight tizanidine 2020-10 Yes 4 mg = 1 Mem oria 4 mg oral 2-27 tab, PO, l tablet 21:40: Bedtime, [place] 00 PRN for muscle spasm, # 30 tab, 0 Refill(s), Pharmacy: [facility] #[id number], 165.1, cm, 10/17/21 15:23:00 [employer], Height, 107.301, kg, 10/17/21 15:23:00 [employer], Weight Acetaminoph 2020-10 Yes 1 tab, PO, Memoria en 325 MG / 2-27 Q12H, PRN l tramadol 21:40: for pain, Herm connie hydrochlori 00 X 15 day, de 37.5 MG # 30 tab, Oral Tablet 0 [Ultracet] Refill(s), [facility][id number], 165.1, cm, 10/17/21 15:23:00 [employer], Height, 107.301, kg, 10/17/21 15:23:00 [employer], Weight tizanidine 2020-10 Yes 4 mg = 1 Mem oria 4 mg oral 2-27 tab, PO, l tablet 21:40: Bedtime, [place] 00 PRN for muscle spasm, # 30 tab, 0 Refill(s), Pharm[facility]: [facility] #[id number], 165.1, cm, 10/17/21 15:23:00 [employer], Height, 107.301, kg, 10/17/21 15:23:00 [employer], Weight Acetaminoph 2020-10 Yes 1 tab, PO, Memoria en 325 MG / 2-27 Q12H, PRN l tramadol 21:40: for pain, Herm connie hydrochlori X 15 day, de 37.5 MG # 30 tab, Oral Tablet 0 [Ultracet] Refill(s), [id number], 165.1, cm, 10/17/21 15:23:00 [employer], Height, 107.301, kg, 10/17/21 15:23:00 [employer], Weight tizanidine 2020-10 Yes 4 mg = 1 Mem oria 4 mg oral 2-27 tab, PO, l tablet 21:40: Bedtime, [place] 00 PRN for muscle spasm, # 30 tab, 0 Refill(s), [facility][id number], 165.1, cm, 10/17/21 15:23:00 [employer], Height, 107.301, kg, 10/17/21 15:23:00 [employer], Weight Acetaminoph 2020-10 Yes 1 tab, PO, Memoria en 325 MG / 2-27 Q12H, PRN l tramadol 21:40: for pain, Herm connie hydrochlori 00 X 15 day, de 37.5 MG # 30 tab, Oral Tablet 0 [Ultracet] Refill(s), [id number], 165.1, cm, 10/17/21 15:23:00 [employer], Height, 107.301, kg, 10/17/21 15:23:00 [employer], Weight sevelamer 2020-10 Yes 1,600 mg = [...] Refill(s), Pharmacy: [facility] #[id number], 165.1, cm, 09/09/21 14:08:00 [employer], Height, 136.42, kg, 09/09/21 14:08:00 [employer], Weight Mupirocin 2020-10 Yes 1 appl, Memor ia 0.02 MG/MG 1-22 TOP, TID, l Topical 23:21: X 5 day, # Herm connie Ointment 00 22 gm, 0 Refill(s), Pharmacy: [facility] #[id number], 165.1, cm, 09/09/21 14:08:00 [employer], Height, 136.42, kg, 09/09/21 14:08:00 [employer], Weight Mupirocin 2020-10 Yes 1 appl, Memor ia 0.02 MG/MG 1-22 TOP, TID, l Topical 23:21: X 5 day, # Herm connie Ointment 00 22 gm, 0 Refill(s), Pharmacy: [facility] #[id number], 165.1, cm, 09/09/21 14:08:00 [employer], Height, 136.42, kg, 09/09/21 14:08:00 [employer], Weight Mupirocin 2020-10 Yes 1 appl, Memor ia 0.02 MG/MG 1-22 TOP, TID, l Topical 23:21: X 5 day, # Herm connie Ointment 00 22 gm, 0 Refill(s), Pharmacy: [facility] #[id number], 165.1, cm, 09/09/21 14:08:00 [employer], Height, 136.42, kg, 09/09/21 14:08:00 [employer], Weight Mupirocin 2020-10 Yes 1 appl, Memor ia 0.02 MG/MG 1-22 TOP, TID, l Topical 23:21: X 5 day, # Herm connie Ointment 00 22 gm, 0 Refill(s), [facility][id number], 165.1, cm, 09/09/21 14:08:00 [employer], Height, 136.42, kg, 09/09/21 14:08:00 [employer], Weight Mupirocin 2020-10 Yes 1 appl, Memor ia 0.02 MG/MG 1-22 TOP, TID, l Topical 23:21: X 5 day, # Herm connie Ointment 00 22 gm, 0 Refill(s), [facility][id number], 165.1, cm, 09/09/21 14:08:00 [employer], Height, 136.42, kg, 09/09/21 14:08:00 [employer], Weight bumetanide 2020-10 Yes 2 mg = 1 Mem oria 2 mg oral 1-19 tab, PO, l tablet 21:11: Daily, # [place] 00 30 tab, 0 Refill(s) bumetanide 2020-10 Yes 2 mg = 1 Mem oria 2 mg oral 1-19 tab, PO, l tablet 21:11: Daily, # [place] 00 30 tab, 0 Refill(s) bumetanide 2020-10 [...] tab, PO, l tablet 21:11: Daily, # [place] 00 30 tab, 0 Refill(s) bumetanide 2020-10 Yes 2 mg = 1 Mem oria 2 mg oral 1-19 tab, PO, l tablet 21:11: Daily, # [place] 00 30 tab, 0 Refill(s) allopurinol 2020-10 [...] connie 00 Refill(s) midodrine 2020-10 Yes 10mg Q.[id number] Take 10 mg [facility] (PROAMATINE - [id number] by mouth 3 [facility] ) 10 MG 00:00: 3D (three) [facility]osp[facility] tablet 00 times a l day. BUMETanide 2020-10 Yes 2mg QD Take 2 mg Me thodi (BUMEX) 2 -[address] MG tablet 00:00: every Hospita 00 morning. l digOXIN 2020-10 Yes 125ug Q.01202337 Take 125 [facility] (LANOXIN) -[id number] 125 mcg 00:00: 3W mouth 3 [facility]ospita (0.125 mg) 00 (three) l tablet times a week. On dialysis days, , Sunday carvediloL 2020-10- No [facility] (COREG) 11-02 st 3.125 MG 00:00: 00:00 Hospita tablet 00 :00 l ipratropium 2020-1 2022- No [id number] .5mg Q.25D Take 2.5 [facility] (ATROVENT) 0-05 02-28 mL (0.[address] 0.02 % 00:00: 00:00 total) by Hospi ta nebulizer 00 :00 nebulizati l solution on 4 (four) times a day. QUEtiapine 2021-0 Yes 1 tablet, Me moria 50 mg oral 3-30 once a l tablet 13:55: day, 0 [place] 00 Refill(s) torsemide 2021-0 Yes 1 tablet, Mem oria 20 mg oral 3-30 twice a l tablet 13:55: day, 0 [place] 00 Refill(s) QUEtiapine 2021-0 Yes 1 tablet, Me moria 50 mg oral 3-30 once a l tablet 13:55: day, 0 [place] 00 Refill(s) torsemide 2021-0 Yes 1 tablet, Mem oria 20 mg oral 3-30 twice a l tablet 13:55: day, 0 [place] 00 Refill(s) QUEtiapine 2021-0 Yes 1 tablet, Me moria 50 mg oral 3-30 once a l tablet 13:55: day, 0 [place] 00 Refill(s) torsemide 2021-0 Yes 1 tablet, Mem oria 20 mg oral 3-30 twice a l tablet 13:55: day, 0 [place] 00 Refill(s) QUEtiapine 2021-0 Yes 1 tablet, Me moria 50 mg oral 3-30 once a l tablet 13:55: day, 0 [place] 00 Refill(s) torsemide 2021-0 Yes 1 tablet, [...] twice a l tablet 13:55: day, 0 [place] 00 Refill(s) potassium 2020-0 Yes 1 tablet, Mem oria chloride 20 3-30 once a l mEq oral 13:54: day, 0 [place] tablet, 00 Refill(s) extended release (KCL) potassium 2020-0 Yes 1 tablet, Mem oria chloride 20 3-30 once a l mEq oral 13:54: day, 0 [place] tablet, 00 Refill(s) extended release (KCL) potassium 2020-0 Yes 1 tablet, Mem oria chloride 20 3-30 once a l mEq oral 13:54: day, 0 [place] tablet, 00 Refill(s) extended release (KCL) potassium 2020-0 Yes 1 tablet, Mem oria chloride 20 3-30 once a l mEq oral 13:54: day, 0 Denis tablet, 00 Refill(s) extended release (KCL) potassium 2020-0 Yes 1 tablet, Mem oria chloride 20 3-30 once a l mEq oral 13:54: day, 0 [place] tablet, 00 Refill(s) extended release (KCL) potassium 2020-0 Yes 1 tablet, Mem oria chloride 20 3-30 once a l mEq oral 13:54: day, 0 Denis tablet, 00 Refill(s) extended release (KCL) midodrine 5 2020-0 Yes 1 tablet, M emoria mg oral 3-30 twice a l tablet 13:53: day, 0 [place] 00 Refill(s) allopurinol 2020-0 Yes 1/2 Memori a 300 mg oral 3-30 tablet, l tablet 13:53: once a [place] 00 day, 0 Refill(s) carvedilol 2020-0 Yes [...] twice a l Tablet 13:53: day, 0 [place] [Eliquis] 00 Refill(s) gabapentin 0 Yes 1 capsule, M emoria 300 MG Oral 3-30 twice a l Capsule 13:53: day, 0 [place] 00 Refill(s) metoprolol 0 Yes 1 tablet, Me moria tartrate 50 3-30 Twice a l mg oral 13:53: day, 0 [place] tablet 00 Refill(s) midodrine 5 Yes 1 tablet, M emoria mg oral 3-30 twice a l tablet 13:53: day, 0 [place] 00 Refill(s) allopurinol Yes 1/2 Memori a [...] twice a l Tablet 13:53: day, 0 [place] [Eliquis] 00 Refill(s) gabapentin 0 Yes 1 capsule, M emoria 300 MG Oral 3-30 twice a l Capsule 13:53: day, 0 [place] 00 Refill(s) metoprolol 0 Yes 1 tablet, Me moria tartrate 50 3-30 Twice a l mg oral 13:53: day, 0 [place] tablet 00 Refill(s) midodrine 5 0 Yes 1 tablet, M emoria mg oral 3-30 twice a l tablet 13:53: day, 0 [place] 00 Refill(s) allopurinol 2020-0 Yes 1/2 Memori a 300 mg oral 3-30 tablet, l tablet 13:53: once a [place] 00 day, 0 Refill(s) carvedilol 0 Yes [...] twice a l Tablet 13:53: day, 0 [place] [Eliquis] 00 Refill(s) gabapentin Yes 1 capsule, M emoria 300 MG Oral 3-30 twice a l Capsule 13:53: day, 0 [place] 00 Refill(s) metoprolol Yes 1 tablet, Me moria tartrate 50 3-30 Twice a l mg oral 13:53: day, 0 [place] tablet 00 Refill(s) midodrine 5 Yes 1 [...] once a l delayed 13:53: day, 0 [place] release 00 Refill(s) capsule apixaban 5 2021-0 Yes 1 tablet, Me moria MG Oral 3-30 twice a l Tablet 13:53: day, 0 [place] [Eliquis] 00 Refill(s) gabapentin 2020-0 Yes 1 capsule, M emoria 300 MG Oral 3-30 twice a l Capsule 13:53: day, 0 [place] 00 Refill(s) metoprolol 2020-0 Yes 1 tablet, Me moria tartrate 50 3-30 Twice a l mg oral 13:53: day, 0 [place] tablet 00 Refill(s) midodrine 5 Yes 1 tablet, M emoria mg oral 3-30 twice a l tablet 13:53: day, 0 [place] 00 Refill(s) allopurinol Yes 1/2 Memori a [...] once a l delayed 13:53: day, 0 [place] release 00 Refill(s) capsule apixaban 5 Yes [...] 13:53: day, 0 [place] tablet 00 Refill(s) DULoxetine 2019-10 Yes 60 mg [...] 00 30 cap, 0 capsule Refill(s) Spironolact 2019- Yes 25 mg = 1 M emoria [...] DAILY, # 66 gm, 1 Refill(s), Pharmacy: [facility] #[id number], 170.18, cm, 12/16/19 14:42:00 [employer], Height, 164.318, kg, 12/16/19 14:42:00 [employer], Weight Mupirocin 2019-10 Yes See Memoria 0.02 MG/MG 0-13 Instructio l Topical 15:44: ns, APPLY Karen nn Ointment 00 EXTERNALLY TO THE AFFECTED AREA TWICE DAILY, # 66 gm, 1 Refill(s), Pharmacy: [facility] #[id number], 170.18, cm, 12/16/19 14:42:00 [employer], Height, 164.318, kg, 12/16/19 14:42:00 [employer], Weight Mupirocin 2019-10 Yes See Memoria 0.02 MG/MG 0-13 Instructio l Topical 15:44: ns, APPLY Karen nn Ointment 00 EXTERNALLY TO THE AFFECTED AREA TWICE DAILY, # 66 gm, 1 Refill(s), Pharmacy: [facility] #[id number], 170.18, cm, 12/16/19 14:42:00 [employer], Height, 164.318, kg, 12/16/19 14:42:00 [employer], Weight Mupirocin 2019-10 Yes See Memoria 0.02 MG/MG 0-13 Instructio l Topical 15:44: ns, APPLY Karen nn Ointment 00 EXTERNALLY TO THE AFFECTED AREA TWICE DAILY, # 66 gm, 1 Refill(s), Pharmacy: [facility] #[id number], 170.18, cm, 12/16/19 14:42:00 [employer], Height, 164.318, kg, 12/16/19 14:42:00 [employer], Weight Mupirocin 2020-1 Yes See Memoria 0.02 MG/MG 0-13 Instructio l Topical 15:44: ns, APPLY Karen nn Ointment 00 EXTERNALLY TO THE AFFECTED AREA TWICE DAILY, # 66 gm, 1 Refill(s), Pharmacy: [facility] #[id number], 170.18, cm, 12/16/19 14:42:00 [employer], Height, 164.318, kg, 12/16/19 14:42:00 [employer], Weight Mupirocin 2020-1 Yes See Memoria 0.02 MG/MG 0-13 Instructio l Topical 15:44: ns, APPLY Karen nn Ointment 00 EXTERNALLY TO THE AFFECTED AREA TWICE DAILY, # 66 gm, 1 Refill(s), Pharmacy: [facility] #[id number], 170.18, cm, 12/16/19 14:42:00 [employer], Height, 164.318, kg, 12/16/19 14:42:00 [employer], Weight Nitrofurant 2020-0 Yes 100 mg = 1 Memoria oin 100 MG 8-09 cap, PO, l Oral 17:57: BID, X 10 [place] Capsule 00 day, # 20 [Macrobid] cap, 0 Refill(s), Pharmacy: [facility] #[id number], 170.18, cm, 12/16/19 14:42:00 [employer], Height, 164.318, kg, 12/16/19 14:42:00 [employer], Weight Nitrofurant 2020-0 Yes 100 mg = 1 Memoria oin 100 MG 8-09 cap, PO, l Oral 17:57: BID, X 10 [place] Capsule 00 day, # 20 [Macrobid] cap, 0 Refill(s), [facility] [facility] #[id number], 170.18, cm, 12/16/19 14:42:00 [employer], Height, 164.318, kg, 12/16/19 14:42:00 [employer], Weight Nitrofurant 2020-0 Yes 100 mg = 1 Memoria oin 100 MG 8-09 cap, PO, l Oral 17:57: BID, X 10 [place] Capsule 00 day, # 20 [Macrobid] cap, 0 Refill(s), Pharmacy: [facility] #[id number], 170.18, cm, 12/16/19 14:42:00 [employer], Height, 164.318, kg, 12/16/19 14:42:00 [employer], Weight Nitrofurant 2020-0 Yes 100 mg = 1 Memoria oin 100 MG 8-09 cap, PO, l Oral 17:57: BID, X 10 [place] Capsule 00 day, # 20 [Macrobid] cap, 0 Refill(s), Pharmacy: [facility] #[id number], 170.18, cm, 12/16/19 14:42:00 [employer], Height, 164.318, kg, 12/16/19 14:42:00 [employer], Weight Nitrofurant 2020-0 Yes 100 mg = 1 Memoria oin 100 MG 8-09 cap, PO, l Oral 17:57: BID, X 10 Denis Capsule 00 day, # 20 [Macrobid] cap, 0 Refill(s), Pharmacy: [facility] #[id number], 170.18, cm, 12/16/19 14:42:00 [employer], Height, 164.318, kg, 12/16/19 14:42:00 [employer], Weight Nitrofurant 2020-0 Yes 100 mg = 1 Memoria oin 100 MG 8-09 cap, PO, l Oral 17:57: BID, X 10 Denis Capsule day, # 20 [Macrobid] cap, 0 Refill(s), Pharmacy: [facility] #[id number], 170.18, cm, 12/16/19 14:42:00 [employer], Height, 164.318, kg, 12/16/19 14:42:00 [employer], Weight lisinopril 2020-0 Yes 2.5 mg = 1 M emoria 2.5 mg oral 6-04 tab, PO, l tablet 23:26: Daily, # [place] 00 30 tab, 2 Refill(s), called to [...] tab, PO, l tablet 23:26: Daily, # [place] 00 30 tab, 2 Refill(s), called to [...] Daily, l oral 12:18: # 90 cap, [place] capsule 00 1 Refill(s), [facility]acy: [facility] #[id number] calcitriol 2020-0 Yes = 1 cap, Mem oria 0.25 mcg 5-20 PO, Daily, l oral 12:18: # 90 cap, [place] capsule 00 1 Refill(s), Pharmacy: [facility] #[id number] calcitriol 2020-0 Yes = 1 cap, Mem oria 0.25 mcg 5-20 PO, Daily, l oral 12:18: # 90 cap, Denis capsule 00 1 Refill(s), Pharmacy: [facility] #[id number] calcitriol 2020-0 Yes = 1 cap, Mem oria 0.25 mcg 5-20 PO, Daily, l oral 12:18: # 90 cap, [place] capsule 00 1 Refill(s), [id number] calcitriol 2020-0 Yes = 1 cap, Mem oria 0.25 mcg 5-20 PO, Daily, l oral 12:18: # 90 cap, Denis capsule 00 1 Refill(s), Pharmacy: [facility] #[id number] calcitriol 2020-0 Yes = 1 cap, Mem oria 0.25 mcg 5-20 PO, Daily, l oral 12:18: # 90 cap, Denis capsule 00 1 Refill(s), Pharmacy: [facility] #[id number] calcitriol 2020-0 Yes = 1 cap, Mem oria 0.25 mcg 4-16 PO, Daily, l oral 16:37: # 90 [place] capsule 47 unknown unit, Pharmacy: [facility] #[id number] calcitriol 2020-0 Yes = 1 cap, Mem oria 0.25 mcg 4-16 PO, Daily, l oral 16:37: # 90 Denis capsule 47 unknown unit, Pharmacy: [facility] #[id number] calcitriol 2020-0 Yes = 1 cap, Mem oria 0.25 mcg 4-16 PO, Daily, l oral 16:37: # 90 Denis capsule 47 unknown unit, Pharmacy: [facility] #[id number] calcitriol 2020-0 Yes = 1 cap, Mem oria 0.25 mcg 4-16 PO, Daily, l oral 16:37: # 90 [place] capsule 47 unknown unit, Pharmacy: [facility] #[id number] calcitriol 2020-0 Yes = 1 cap, Mem oria 0.25 mcg 4-16 PO, Daily, l oral 16:37: # 90 [place] capsule 47 unknown unit, Pharmacy: [facility] #[id number] calcitriol 2020-0 Yes = 1 cap, Mem oria 0.25 mcg 4-16 PO, Daily, l oral 16:37: # 90 Denis capsule 47 unknown unit, Pharmacy: [facility] #[id number] Furosemide 2020-0 Yes = 1 tab, Mem oria 40 MG Oral 4-13 PO, Every l Tablet 20:06: Other Day, Karen nn 19 # 45 tab, Pharmacy: [facility] #[id number] Furosemide 2020-0 Yes = 1 tab, Mem oria 40 MG Oral 4-13 PO, Every l Tablet 20:06: Other Day, Karen nn 19 # 45 tab, Pharmacy: [facility] #[id number] Furosemide 2020-0 Yes = 1 tab, Mem oria 40 MG Oral 4-13 PO, Every l Tablet 20:06: Other Day, Karen nn 19 # 45 tab, Pharmacy: [facility] #[id number] Furosemide 2020-0 Yes = 1 tab, Mem oria 40 MG Oral 4-13 PO, Every l Tablet 20:06: Other Day, Banner 19 # 45 tab, Pharmacy: [facility] #[id number] Furosemide 2020-0 Yes = 1 tab, Mem oria 40 MG Oral 4-13 PO, Every l Tablet 20:06: Other Day, Banner 19 # 45 tab, Pharmacy: [facility] #[id number] Furosemide 2020-0 Yes = 1 tab, Mem oria 40 MG Oral 4-13 PO, Every l Tablet 20:06: Other Day, Banner 19 # 45 tab, Pharmacy: [facility] #[id number] prednisolon 2020-0 Yes 1 drop in M emoria e acetate 4-10 each eye, l 10 MG/ML 20:53: once Denis Ophthalmic 00 daily, 0 Suspension Refill(s) bromfenac 2020-0 Yes 1 drop in Mem oria 0.7 MG/ML 4-10 right eye, l Ophthalmic 20:53: once [place] Solution 00 daily, 0 [Prolensa] Refill(s) prednisolon 2020-0 Yes 1 drop in M emoria e acetate 4-10 each eye, l 10 MG/ML 20:53: once [place] Ophthalmic 00 daily, 0 Suspension Refill(s) bromfenac 2020-0 Yes 1 drop in Mem oria 0.7 MG/ML 4-10 right eye, l Ophthalmic 20:53: once [place] Solution 00 daily, 0 [Prolensa] Refill(s) prednisolon 2020-0 Yes 1 drop in M emoria e acetate 4-10 each eye, l 10 MG/ML 20:53: once [place] Ophthalmic 00 daily, 0 Suspension Refill(s) bromfenac 2020-0 Yes 1 drop in Mem oria 0.7 MG/ML 4-10 right eye, l Ophthalmic 20:53: once [place] Solution 00 daily, 0 [Prolensa] Refill(s) prednisolon 2020-0 Yes 1 drop in M emoria e acetate 4-10 each eye, l 10 MG/ML 20:53: once [place] Ophthalmic 00 daily, 0 Suspension Refill(s) bromfenac 2020-0 Yes 1 drop in Mem oria 0.7 MG/ML 4-10 right eye, l Ophthalmic 20:53: once [place] Solution 00 daily, 0 [Prolensa] Refill(s) prednisolon 2020-0 Yes 1 drop in M emoria e acetate 4-10 each eye, l 10 MG/ML 20:53: once [place] Ophthalmic 00 daily, 0 Suspension Refill(s) bromfenac 2020-0 Yes 1 drop in Mem oria 0.7 MG/ML 4-10 right eye, l Ophthalmic 20:53: once [place] Solution 00 daily, 0 [Prolensa] Refill(s) prednisolon [...] Karen robb 34 # 45 tab, [facility] #[id number] Furosemide 2020-0 Yes = 1 tab, Mem oria 40 MG Oral 1-23 PO, Every l Tablet 15:13: Other Day, Karen robb 34 # 45 tab, [facility] #[id number] Furosemide 2020-0 Yes = 1 tab, Mem oria 40 MG Oral 1-23 PO, Every l Tablet 15:13: Other Day, Karen robb 34 # 45 tab, Pharmacy: [facility] #[id number] Furosemide 2020-0 Yes = 1 tab, Mem oria 40 MG Oral 1-23 PO, Every l Tablet 15:13: Other Day, Karen robb 34 # 45 tab, Pharmacy: [facility] #[id number] Furosemide 2020-0 Yes = 1 tab, Mem oria 40 MG Oral 1-23 PO, Every l Tablet 15:13: Other Day, Karen robb 34 # 45 tab, Pharmacy: [facility] #[id number] Furosemide 2020-0 Yes = 1 tab, Mem oria 40 MG Oral 1-23 PO, Every l Tablet 15:13: Other Day, Karen nn 34 # 45 tab, Pharmacy: [facility] [address] [place], [place] [id number] 2018-10 Yes See Memoria 0.02 MG/MG 2-27 Instructio l Topical 19:11: ns, # 66 Vicente n Ointment 15 gm, APPLY EXTERNALLY TO THE AFFECTED AREA TWICE DAILY, Pharmacy: [facility] [address] [place], [place] [id number] 2018-10 Yes See Memoria 0.02 MG/MG 2-27 Instructio l Topical 19:11: ns, # 66 Vicente n Ointment 15 gm, APPLY EXTERNALLY TO THE AFFECTED AREA TWICE DAILY, Pharmacy: [facility] [address] [place], [place] [id number] 2018-10 Yes See Memoria 0.02 MG/MG 2-27 Instructio l Topical 19:11: ns, # 66 Vicente n Ointment 15 gm, APPLY EXTERNALLY TO THE AFFECTED AREA TWICE DAILY, Pharmacy: [facility] [address] [place], [place] [id number] 2018-10 Yes See Memoria 0.02 MG/MG 2-27 Instructio l Topical 19:11: ns, # 66 Vicente n Ointment 15 gm, APPLY EXTERNALLY TO THE AFFECTED AREA TWICE DAILY, Pharmacy: [facility] [address] [place], [place] [id number] 2018-10 Yes See Memoria 0.02 MG/MG 2-27 Instructio l Topical 19:11: ns, # 66 Vicente n Ointment 15 gm, APPLY EXTERNALLY TO THE AFFECTED AREA TWICE DAILY, Pharmacy: [facility] [address] [place], [place] [id number] 2018-10 Yes See Memoria 0.02 MG/MG 2-27 Instructio l Topical 19:11: ns, # 66 Vicente n Ointment 15 gm, APPLY EXTERNALLY TO THE AFFECTED AREA TWICE DAILY, Pharmacy: [facility] #[id number] Nitrofurant 2018-10 Yes 100 mg = 1 Memoria oin 100 MG 2-13 cap, PO, l Oral 01:44: BID, X 5 Denis Capsule 00 day, # 10 [[place] cap, 0 n] Refill(s), Pharmacy: [facility] #[id number] Nitrofurant 2018-10 Yes 100 mg = 1 Memoria oin 100 MG 2-13 cap, PO, l Oral 01:44: BID, X 5 [place] Capsule 00 day, # 10 [[place] cap, 0 n] Refill(s), Pharmacy: [facility] #[id number] Nitrofurant 2018-10 Yes 100 mg = 1 Memoria oin 100 MG 2-13 cap, PO, l Oral 01:44: BID, X 5 [place] Capsule 00 day, # 10 [[place] cap, 0 n] Refill(s), Pharmacy: [facility] #[id number] Nitrofurant 2018-10 Yes 100 mg = 1 Memoria oin 100 MG 2-13 cap, PO, l Oral 01:44: BID, X 5 Denis Capsule 00 day, # 10 [[place] cap, 0 n] Refill(s), Pharmacy: [facility] #[id number] Nitrofurant 2018-10 Yes 100 mg = 1 Memoria oin 100 MG 2-13 cap, PO, l Oral 01:44: BID, X 5 Denis Capsule 00 day, # 10 [[place] cap, 0 n] Refill(s), Pharmacy: [facility] #[id number] Nitrofurant 2018-10 Yes 100 mg = 1 Memoria oin 100 MG 2-13 cap, PO, l Oral 01:44: BID, X 5 [place] Capsule 00 day, # 10 [[place] cap, 0 n] Refill(s), Pharmacy: [facility] #[id number] apixaban 5 2018-10 Yes 5 mg, PO, [...] ermann Bitartrate 00 5 MG Oral Tablet [[place] 5/325] apixaban 5 2018-10 Yes 5 mg, [...] ermann Bitartrate 00 5 MG Oral Tablet [[place] 5/325] apixaban 5 2018-10 Yes 5 mg, [...] ermann Bitartrate 00 5 MG Oral Tablet [[place] 5/325] apixaban 5 2018-10 Yes 5 mg, [...] ermann Bitartrate 00 5 MG Oral Tablet [[place] 5/325] apixaban 5 2018-10 Yes 5 mg, [...] ermann Bitartrate 00 5 MG Oral Tablet [[place] 5/325] apixaban 5 2018-10 Yes 5 mg, [...] ermann Bitartrate 00 5 MG Oral Tablet [[place] 5/325] calcitriol 2018-10 Yes = 1 cap, Mem oria 0.25 mcg 0-11 PO, Daily, l oral 21:10: # 90 [place] capsule 30 unknown unit, Pharmacy: [facility] #[id number] calcitriol 2018-10 Yes = 1 cap, Mem oria 0.25 mcg 0-11 PO, Daily, l oral 21:10: # 90 [place] capsule 30 unknown unit, Pharmacy: [facility] #[id number] calcitriol 2018-10 Yes = 1 cap, Mem oria 0.25 mcg 0-11 PO, Daily, l oral 21:10: # 90 [place] capsule 30 unknown unit, Pharmacy: [facility] #[id number] calcitriol 2018-10 Yes = 1 cap, Mem oria 0.25 mcg 0-11 PO, Daily, l oral 21:10: # 90 Denis capsule 30 unknown unit, Pharmacy: [facility] #[id number] calcitriol 2019- Yes = 1 cap, Mem oria 0.25 mcg 0-11 PO, Daily, l oral 21:10: # 90 [place] capsule 30 unknown unit, Pharmacy: [facility] #[id number] calcitriol 2019- Yes = 1 cap, Mem oria 0.25 mcg 0-11 PO, Daily, l oral 21:10: # 90 [place] capsule 30 unknown unit, Pharmacy: [facility] #[id number] gabapentin 2019-0 Yes 300 mg = 1 [...] # 90 Vicente martinez n 31 Pharmacy: [facility] #[id number] allopurinol 2019-0 Yes = 1 tab, Me moria 300 mg oral 8-17 PO, Daily, l tablet 02:39: # 90 tabVicente n 31 Pharmacy: [facility] #[id number] allopurinol 2019-0 Yes = 1 tab, Me moria 300 mg oral 8-17 PO, Daily, l tablet 02:39: # 90 tab, Vicente n 31 Pharmacy: [facility] #[id number] allopurinol 2019-0 Yes = 1 tab, Me moria 300 mg oral 8-17 PO, Daily, l tablet 02:39: # 90 tab, Vicente n 31 Pharmacy: [facility] #[id number] allopurinol 2019-0 Yes = 1 tab, Me moria 300 mg oral 8-17 PO, Daily, l tablet 02:39: # 90 tab, Vicente n 31 Pharmacy: [facility] #[id number] allopurinol 2019-0 Yes = 1 tab, Me moria 300 mg oral 8-17 PO, Daily, l tablet 02:39: # 90 tab, Vicente n 31 Pharmacy: [facility] #[id number] QUEtiapine 2019-0 Yes 50 mg = 1 [...] l oral tablet 15:07: ns, TAKE 1 [place] 35 TABLET BY MOUTH EVERY NIGHT AT BEDTIME, # 90 tab, 1 Refill(s), Pharmacy: [facility] atorvastati Yes See Memori a n 40 mg 3-14 Instructio l oral tablet 15:07: ns, TAKE 1 Denis 35 TABLET BY MOUTH EVERY NIGHT AT BEDTIME, # 90 tab, 1 Refill(s), Pharmacy: [facility] atorvastati Yes See Memori a n 40 mg 3-14 Instructio l oral tablet 15:07: ns, TAKE 1 Denis 35 TABLET BY MOUTH EVERY NIGHT AT BEDTIME, # 90 tab, 1 Refill(s), Pharmacy: [place] [address] atorvastati Yes See Memori a n 40 mg 3-14 Instructio l oral tablet 15:07: ns, TAKE 1 Denis 35 TABLET BY MOUTH EVERY NIGHT AT BEDTIME, # 90 tab, 1 Refill(s), Pharmacy: [place] [address] atorvastati Yes See Memori a n 40 mg 3-14 Instructio l oral tablet 15:07: ns, TAKE 1 [place] 35 TABLET BY MOUTH EVERY NIGHT AT BEDTIME, # 90 tab, 1 Refill(s), Pharmacy: [place] [address] atorvastati Yes See Memori a n 40 mg 3-14 Instructio l oral tablet 15:07: ns, TAKE 1 [place] 35 TABLET BY MOUTH EVERY NIGHT AT BEDTIME, # 90 tab, 1 Refill(s), Pharmacy: [place] [address] amLODIPine Yes See Memoria 5 mg oral 3-14 Instructio l tablet 15:07: ns, TAKE 1 Karen nn 33 TABLET BY MOUTH EVERY DAY, # 90 tab, 1 Refill(s), Pharmacy: [facility] [place] [address] amLODIPine Yes See Memoria 5 mg oral 3-14 Instructio l tablet 15:07: ns, TAKE 1 Karen nn 33 TABLET BY MOUTH EVERY DAY, # 90 tab, 1 Refill(s), Pharmacy: [facility] [place] [address] amLODIPine Yes See Memoria 5 mg oral 3-14 Instructio l tablet 15:07: ns, TAKE 1 Karen nn 33 TABLET BY MOUTH EVERY DAY, # 90 tab, 1 Refill(s), Pharmacy: [place] [address] amLODIPine Yes See Memoria 5 mg oral 3-14 Instructio l tablet 15:07: ns, TAKE 1 Karen nn 33 TABLET BY MOUTH EVERY DAY, # 90 tab, 1 Refill(s), Pharmacy: [place] [address] amLODIPine Yes See Memoria 5 mg oral 3-14 Instructio l tablet 15:07: ns, TAKE 1 Karen nn 33 TABLET BY MOUTH EVERY DAY, # 90 tab, 1 Refill(s), Pharmacy: [facility] [place] [address] amLODIPine Yes See Memoria 5 mg oral 3-14 Instructio l tablet 15:07: ns, TAKE 1 Karen nn 33 TABLET BY MOUTH EVERY DAY, # 90 tab, 1 Refill(s), Pharmacy: [place] [address] lisinopril Yes See Memoria 5 mg oral 8-21 Instructio l tablet 19:00: ns, TAKE 1 Karen nn 30 TABLET BY MOUTH DAILY, # 90 tab, 1 Refill(s), Pharmacy: [facility] [place] [address] lisinopril Yes See Memoria 5 mg oral 8-21 Instructio l tablet 19:00: ns, TAKE 1 Karen nn 30 TABLET BY MOUTH DAILY, # 90 tab, 1 Refill(s), Pharmacy: [place] [address] lisinopril Yes See Memoria 5 mg oral 8-21 Instructio l tablet 19:00: ns, TAKE 1 Karen nn 30 TABLET BY MOUTH DAILY, # 90 tab, 1 Refill(s), Pharmacy: [facility] [place] [address] lisinopril Yes See Memoria 5 mg oral 8-21 Instructio l tablet 19:00: ns, TAKE 1 Karen nn 30 TABLET BY MOUTH DAILY, # 90 tab, 1 Refill(s), Pharmacy: [facility] [place] [address] lisinopril Yes See Memoria 5 mg oral 8-21 Instructio l tablet 19:00: ns, TAKE 1 Karen nn 30 TABLET BY MOUTH DAILY, # 90 tab, 1 Refill(s), Pharmacy: [facility] [place] [address] lisinopril Yes See Memoria 5 mg oral 8-21 Instructio l tablet 19:00: ns, TAKE 1 Karen nn 30 TABLET BY MOUTH DAILY, # 90 tab, 1 Refill(s), Pharmacy: [facility] [place] [address] atorvastati Yes See Memori a n 40 mg 8-21 Instructio l oral tablet 18:50: ns, TAKE 1 Denis 45 TABLET BY MOUTH EVERY NIGHT AT BEDTIME, # 30 tab, 5 Refill(s), Pharmacy: [facility] [place] [address] atorvastati Yes See Memori a n 40 mg 8-21 Instructio l oral tablet 18:50: ns, TAKE 1 [place] 45 TABLET BY MOUTH EVERY NIGHT AT BEDTIME, # 30 tab, 5 Refill(s), Pharmacy: [address] Yes See Memori a n 40 mg 8-21 Instructio l oral tablet 18:50: ns, TAKE 1 Denis 45 TABLET BY MOUTH EVERY NIGHT AT BEDTIME, # 30 tab, 5 Refill(s), Pharmacy: [address] Yes See Memori a n 40 mg 8-21 Instructio l oral tablet 18:50: ns, TAKE 1 [place] 45 TABLET BY MOUTH EVERY NIGHT AT BEDTIME, # 30 tab, 5 Refill(s), Pharmacy: [address] Yes See Memori a n 40 mg 8-21 Instructio l oral tablet 18:50: ns, TAKE 1 Denis 45 TABLET BY MOUTH EVERY NIGHT AT BEDTIME, # 30 tab, 5 Refill(s), Pharmacy: [address] Yes See Memori a n 40 mg 8-21 Instructio l oral tablet 18:50: ns, TAKE 1 [place] 45 TABLET BY MOUTH EVERY NIGHT AT BEDTIME, # 30 tab, 5 Refill(s), Pharmacy: [place] [address] amLODIPine Yes See Memoria 5 mg oral 8-21 Instructio l tablet 18:50: ns, TAKE 1 Karen nn 41 TABLET BY MOUTH EVERY DAY, # 30 tab, 5 Refill(s), Pharmacy: [place] [address] amLODIPine Yes See Memoria 5 mg oral 8-21 Instructio l tablet 18:50: ns, TAKE 1 Karen nn 41 TABLET BY MOUTH EVERY DAY, # 30 tab, 5 Refill(s), Pharmacy: [place] [address] amLODIPine Yes See Memoria 5 mg oral 8-21 Instructio l tablet 18:50: ns, TAKE 1 Karen nn 41 TABLET BY MOUTH EVERY DAY, # 30 tab, 5 Refill(s), Pharmacy: [place] [address] amLODIPine Yes See Memoria 5 mg oral 8-21 Instructio l tablet 18:50: ns, TAKE 1 Karen nn 41 TABLET BY MOUTH EVERY DAY, # 30 tab, 5 Refill(s), Pharmacy: [facility] [place] [address] amLODIPine Yes See Memoria 5 mg oral 8-21 Instructio l tablet 18:50: ns, TAKE 1 Karen nn 41 TABLET BY MOUTH EVERY DAY, # 30 tab, 5 Refill(s), Pharmacy: [facility] [place] [address] amLODIPine Yes See Memoria 5 mg oral 8-21 Instructio l tablet 18:50: ns, TAKE 1 Karen nn 41 TABLET BY MOUTH EVERY DAY, # 30 tab, 5 Refill(s), Pharmacy: [facility] [place] [address] lisinopril No See Memoria 5 mg oral 7-31 Instructio l tablet 15:28: ns, # 90 Denis 34 tab, TAKE 1 TABLET BY MOUTH DAILY, Pharmacy: [facility] [place] [address] lisinopril No See Memoria 5 mg oral 7-31 Instructio l tablet 15:28: ns, # 90 [place] 34 tab, TAKE 1 TABLET BY MOUTH DAILY, Pharmacy: [facility] [place] [address] lisinopril No See Memoria 5 mg oral 7-31 Instructio l tablet 15:28: ns, # 90 Denis 34 tab, TAKE 1 TABLET BY MOUTH DAILY, Pharmacy: [facility] [place] [address] lisinopril No See Memoria 5 mg oral 7-31 Instructio l tablet 15:28: ns, # 90 Denis 34 tab, TAKE 1 TABLET BY MOUTH DAILY, Pharmacy: [facility] [place] [address] lisinopril No See Memoria 5 mg oral 7-31 Instructio l tablet 15:28: ns, # 90 [place] 34 tab, TAKE 1 TABLET BY MOUTH DAILY, Pharmacy: [facility] [place] [address] lisinopril No See Memoria 5 mg oral 7-31 Instructio l tablet 15:28: ns, # 90 Denis 34 tab, TAKE 1 TABLET BY MOUTH DAILY, Pharmacy: [facility] [place] [address] allopurinol No 300 mg = 1 Memoria 300 mg oral 5-10 tab, PO, l tablet 13:59: Daily, # [place] 00 90 tab, 1 Refill(s), Pharmacy: [place] [address] allopurinol No 300 mg = 1 Memoria 300 mg oral 5-10 tab, PO, l tablet 13:59: Daily, # Denis 00 90 tab, 1 Refill(s), Pharmacy: [place] [address] allopurinol No 300 mg = 1 Memoria 300 mg oral 5-10 tab, PO, l tablet 13:59: Daily, # [place] 00 90 tab, 1 Refill(s), Pharmacy: [place] [address] allopurinol No 300 mg = 1 Memoria 300 mg oral 5-10 tab, PO, l tablet 13:59: Daily, # Denis 00 90 tab, 1 Refill(s), Pharmacy: [place] [address] allopurinol No 300 mg = 1 Memoria 300 mg oral 5-10 tab, PO, l tablet 13:59: Daily, # Denis 00 90 tab, 1 Refill(s), Pharmacy: [place] [address] allopurinol No 300 mg = 1 Memoria 300 mg oral 5-10 tab, PO, l tablet 13:59: Daily, # [place] 00 90 tab, 1 Refill(s), Pharmacy: [place] [address] lisinopril No See Memoria 5 mg oral 5-01 Instructio l tablet 12:38: ns, # 90 [place] 18 tab, TAKE 1 TABLET BY MOUTH DAILY, Pharmacy: [place] [address] ALLOPURINOL Yes See Memori a 300MG 5-01 Instructio l TABLETS 12:38: ns, # 90 Vicente n 18 tab, TAKE 1 TABLET BY MOUTH DAILY, Pharmacy: [place] [address] lisinopril No See Memoria 5 mg oral 5-01 Instructio l tablet 12:38: ns, # 90 Denis 18 tab, TAKE 1 TABLET BY MOUTH DAILY, Pharmacy: [place] [address] ALLOPURINOL Yes See Memori a 300MG 5-01 Instructio l TABLETS 12:38: ns, # 90 Vicente n 18 tab, TAKE 1 TABLET BY MOUTH DAILY, Pharmacy: [place] [address] lisinopril No See Memoria 5 mg oral 5-01 Instructio l tablet 12:38: ns, # 90 [place] 18 tab, TAKE 1 TABLET BY MOUTH DAILY, Pharmacy: [facility] [place] [address] ALLOPURINOL Yes See Memori a 300MG 5-01 Instructio l TABLETS 12:38: ns, # 90 [place] 18 tab, TAKE 1 TABLET BY MOUTH DAILY, Pharmacy: [facility] [place] [address] lisinopril No See Memoria 5 mg oral 5-01 Instructio l tablet 12:38: ns, # 90 [place] 18 tab, TAKE 1 TABLET BY MOUTH DAILY, Pharmacy: [facility] [place] [address] ALLOPURINOL Yes See Memori a 300MG 5-01 Instructio l TABLETS 12:38: ns, # 90 [place] 18 tab, TAKE 1 TABLET BY MOUTH DAILY, Pharmacy: [facility] [place] [address] lisinopril No See Memoria 5 mg oral 5-01 Instructio l tablet 12:38: ns, # 90 [place] 18 tab, TAKE 1 TABLET BY MOUTH DAILY, Pharmacy: [facility] [place] [address] ALLOPURINOL Yes See Memori a 300MG 5-01 Instructio l TABLETS 12:38: ns, # 90 [place] 18 tab, TAKE 1 TABLET BY MOUTH DAILY, Pharmacy: [facility] [place] [address] lisinopril No See Memoria 5 mg oral 5-01 Instructio l tablet 12:38: ns, # 90 [place] 18 tab, TAKE 1 TABLET BY MOUTH DAILY, Pharmacy: [facility] [place] [address] ALLOPURINOL 0 Yes See Memori a 300MG 5-01 Instructio l TABLETS 12:38: ns, # 90 [place] 18 tab, TAKE 1 TABLET BY MOUTH DAILY, Pharmacy: [facility] [place] [address] calcitriol 0 Yes 0.25 Memoria 0.25 mcg 3-28 microgram l oral 13:49: = 1 cap, Denis capsule 00 PO, Daily, # 90 cap, 3 Refill(s), Pharmacy: [facility] [place] [address] calcitriol 2017-0 Yes 0.25 Memoria 0.25 mcg 3-28 microgram l oral 13:49: = 1 cap, Denis capsule 00 PO, Daily, # 90 cap, 3 Refill(s), Pharmacy: [facility] [place] [address] calcitriol 2017-0 Yes 0.25 Memoria 0.25 mcg 3-28 microgram l oral 13:49: = 1 cap, [place] capsule 00 PO, Daily, # 90 cap, 3 Refill(s), Pharmacy: [facility] [place] [address] calcitriol 2017- Yes 0.25 Memoria 0.25 mcg 3-28 microgram l oral 13:49: = 1 cap, [place] capsule 00 PO, Daily, # 90 cap, 3 Refill(s), Pharmacy: [facility] [place] [address] calcitriol 2017- Yes 0.25 Memoria 0.25 mcg 3-28 microgram l oral 13:49: = 1 cap, Denis capsule 00 PO, Daily, # 90 cap, 3 Refill(s), Pharmacy: [facility] [place] [address] calcitriol 2017- Yes 0.25 Memoria 0.25 mcg 3-28 microgram l oral 13:49: = 1 cap, [place] capsule 00 PO, Daily, # 90 cap, 3 Refill(s), Pharmacy: [facility] [place] [address] Mupirocin 2017-0 Yes 1 appl, Memor ia 0.02 MG/MG 3-21 TOP, BID, l Topical 15:37: 30 grams Vicente n Ointment 21 3each, # 3 ea, 1 Refill(s), Pharmacy: [facility] [place] [address] Mupirocin 2017- Yes 1 appl, Memor ia 0.02 MG/MG 3-21 TOP, BID, l Topical 15:37: 30 grams Vicente n Ointment 21 3each, # 3 ea, 1 Refill(s), Pharmacy: [facility] [place] [address] Mupirocin 2017-0 Yes 1 appl, Memor ia 0.02 MG/MG 3-21 TOP, BID, l Topical 15:37: 30 grams Vicente n Ointment 21 3each, # 3 ea, 1 Refill(s), Pharmacy: [facility] [place] [address] Mupirocin 2017-0 Yes 1 appl, Memor ia 0.02 MG/MG 3-21 TOP, BID, l Topical 15:37: 30 grams Vicente n Ointment 21 3each, # 3 ea, 1 Refill(s), Pharmacy: [facility] [place] [address] Mupirocin Yes 1 appl, Memor ia 0.02 MG/MG 3-21 TOP, BID, l Topical 15:37: 30 grams Vicente n Ointment 21 3each, # 3 ea, 1 Refill(s), Pharmacy: [facility] [place] [address] Mupirocin Yes 1 appl, Memor ia 0.02 MG/MG 3-21 TOP, BID, l Topical 15:37: 30 grams Vicente n Ointment 21 3each, # 3 ea, 1 Refill(s), Pharmacy: [facility] [place] [address] atorvastati Yes See Memori a n 40 mg 3-21 Instructio l oral tablet 15:36: ns, TAKE 1 [place] 22 TABLET BY MOUTH EVERY NIGHT AT BEDTIME, # 30 tab, 5 Refill(s), Pharmacy: [facility] [place] [address] atorvastati Yes See Memori a n 40 mg 3-21 Instructio l oral tablet 15:36: ns, TAKE 1 [place] 22 TABLET BY MOUTH EVERY NIGHT AT BEDTIME, # 30 tab, 5 Refill(s), Pharmacy: [facility] [place] [address] atorvastati Yes See Memori a n 40 mg 3-21 Instructio l oral tablet 15:36: ns, TAKE 1 Denis 22 TABLET BY MOUTH EVERY NIGHT AT BEDTIME, # 30 tab, 5 Refill(s), Pharmacy: [facility] [place] [address] atorvastati Yes See Memori a n 40 mg 3-21 Instructio l oral tablet 15:36: ns, TAKE 1 Denis 22 TABLET BY MOUTH EVERY NIGHT AT BEDTIME, # 30 tab, 5 Refill(s), Pharmacy: [facility] [place] [address] atorvastati Yes See Memori a n 40 mg 3-21 Instructio l oral tablet 15:36: ns, TAKE 1 [place] 22 TABLET BY MOUTH EVERY NIGHT AT BEDTIME, # 30 tab, 5 Refill(s), Pharmacy: [facility] [place] [address] atorvastati Yes See Memori a n 40 mg 3-21 Instructio l oral tablet 15:36: ns, TAKE 1 [place] 22 TABLET BY MOUTH EVERY NIGHT AT BEDTIME, # 30 tab, 5 Refill(s), Pharmacy: [place] [address] amLODIPine Yes See Memoria 5 mg oral 3-21 Instructio l tablet 15:36: ns, TAKE 1 Karen nn 18 TABLET BY MOUTH EVERY DAY, # 30 tab, 5 Refill(s), Pharmacy: [place] [address] amLODIPine Yes See Memoria 5 mg oral 3-21 Instructio l tablet 15:36: ns, TAKE 1 Karen nn 18 TABLET BY MOUTH EVERY DAY, # 30 tab, 5 Refill(s), Pharmacy: [place] [address] amLODIPine Yes See Memoria 5 mg oral 3-21 Instructio l tablet 15:36: ns, TAKE 1 Karen nn 18 TABLET BY MOUTH EVERY DAY, # 30 tab, 5 Refill(s), Pharmacy: [facility] [place] [address] amLODIPine Yes See Memoria 5 mg oral 3-21 Instructio l tablet 15:36: ns, TAKE 1 Karen nn 18 TABLET BY MOUTH EVERY DAY, # 30 tab, 5 Refill(s), Pharmacy: [facility] [place] [address] amLODIPine Yes See Memoria 5 mg oral 3-21 Instructio l tablet 15:36: ns, TAKE 1 Karen nn 18 TABLET BY MOUTH EVERY DAY, # 30 tab, 5 Refill(s), Pharmacy: [facility] [place] [address] amLODIPine Yes See Memoria 5 mg oral 3-21 Instructio l tablet 15:36: ns, TAKE 1 Karen nn 18 TABLET BY MOUTH EVERY DAY, # 30 tab, 5 Refill(s), Pharmacy: [facility] [place] [address] aspirin 81 2017- Yes 81 mg = 1 Me moria mg tablet, 1-24 tab, PO, l enteric 16:34: Daily, # Vicente n coated 00 90 tab, 3 Refill(s) aspirin 81 2017-0 Yes 81 mg = 1 Me moria mg tablet, 1-24 tab, PO, l enteric 16:34: Daily, # Vicente n coated 00 90 tab, 3 Refill(s) aspirin 81 2016-0 Yes 81 mg = 1 Me moria mg tablet, 1-24 tab, PO, l enteric 16:34: Daily, # Vicente n coated 00 90 tab, 3 Refill(s) aspirin 81 0 Yes 81 mg = 1 Me moria [...] coated 00 90 tab, 3 Refill(s) Xopenex 2016 No Kyle K 0.63 mg = Mem oria 0.63 mg/3 3-11 Silvestre 3 mL, l mL 01:00: Soln, NEB, Denis inhalation 00 Once, solution first dose 12/30/15 19:00:00 [employer], stop date 12/30/15 19:00:00 [employer] Xopenex 0 No Kyle K 0.63 mg = Mem oria 0.63 mg/3 3-11 Silvestre 3 mL, l mL 01:00: Soln, NEB, Denis inhalation 00 Once, solution first dose 12/30/15 19:00:00 [employer], stop date 12/30/15 19:00:00 [employer] Xopenex 0 No Kyle K 0.63 mg = Mem oria 0.63 mg/3 3-11 Silvestre 3 mL, l mL 01:00: Soln, NEB, Denis inhalation 00 Once, solution first dose 12/30/15 19:00:00 [employer], stop date 12/30/15 19:00:00 [employer] Xopenex 0 No Kyle K 0.63 mg = Mem oria 0.63 mg/3 3-11 Silvestre 3 mL, l mL 01:00: Soln, NEB, Denis inhalation 00 Once, solution first dose 12/30/15 19:00:00 [employer], stop date 12/30/15 19:00:00 [employer] Xopenex 0 No Kyle K 0.63 mg = Mem oria 0.63 mg/3 3-11 Silvestre 3 mL, l mL 01:00: Soln, NEB, [place] inhalation 00 Once, solution first dose 12/30/15 19:00:00 [employer], stop date 12/30/15 19:00:00 [employer] Xopenex 2015-0 No Kyle K 0.63 mg = Mem oria 0.63 mg/3 3-11 Silvestre 3 mL, l mL 01:00: Soln, NEB, Denis inhalation 00 Once, solution first dose 12/30/15 19:00:00 [employer], stop date 12/30/15 19:00:00 [employer] [facility] No Perico 300 mL, Memoria Medication 3-11 Wheat Soln-IV, l 00:03: IV, Once, [place] 00 first dose 12/30/15 18:03:00 [employer], stop date 12/30/15 18:03:00 [employer] [facility] No Perico 300 mL, Memoria Medication 3-11 Wheat Soln-IV, l 00:03: IV, Once, Denis 00 first dose 12/30/15 18:03:00 [employer], stop date 12/30/15 18:03:00 [employer] [facility] No Perico 300 mL, Memoria Medication 3-11 Wheat Soln-IV, l 00:03: IV, Once, Denis 00 first dose 12/30/15 18:03:00 [employer], stop date 12/30/15 18:03:00 [employer] [facility] No Perico 300 mL, Memoria Medication 3-11 Wheat Soln-IV, l 00:03: IV, Once, [place] 00 first dose 12/30/15 18:03:00 [employer], stop date 12/30/15 18:03:00 [employer] [facility] No Perico 300 mL, Memoria Medication 3-11 Wheat Soln-IV, l 00:03: IV, Once, Denis 00 first dose 12/30/15 18:03:00 [employer], stop date 12/30/15 18:03:00 [employer] [facility] No Perico 300 mL, Memoria Medication 3-11 Wheat Soln-IV, l 00:03: IV, Once, Denis 00 first dose 12/30/15 18:03:00 [employer], stop date 12/30/15 18:03:00 [employer] promethazin No Kyle K 12.5 mg = Memoria e 3-11 Silvestre 0.5 mL, l 00:02: Injection, [place] 00 IM, Once PRN for severe nausea, first dose 12/30/15 18:02:00 [employer] albuterol No Kyle K 2.5 mg = 3 Memoria 2.5 mg/3 mL 3-11 Silvestre mL, Soln, l (0.083%) 00:02: NEB, Once Herm connie inhalation 00 PRN for solution wheezing, first dose 12/30/15 18:02:00 [employer] Demerol HCl No Kyle K 12.5 mg = Memoria 3-11 Silvestre 0.25 mL, l 00:02: Injection, Denis 00 IV Push, Once PRN for shivers, first dose 12/30/15 18:02:00 [employer] ondansetron No Kyle K 4 mg = 2 Memoria 3-11 Silvestre mL, l 00:02: Injection, Denis 00 IV Push, q15min PRN for nausea/vom iting, order duration: 2 doses, first dose 12/30/15 18:02:00 [employer], stop date Limited # of times Dilaudid No Kyle K 0.5 mg = Mem oria 3-11 Silvestre 0.25 mL, l 00:02: Injection, Denis 00 IV Push, q10min PRN for pain severe (7-10), first dose 12/30/15 18:02:00 [employer] diphenhydrA No Kyle K 25 mg = M emoria MINE 3-11 Silvestre 0.5 mL, l 00:02: Injection, Denis 00 IV Push, Once PRN for itching, first dose 12/30/15 18:02:00 [employer] LR 1,000 mL No Kyle K 1,000 mL, Memoria 3-11 Silvestre IV, 75 l 00:02: mL/hr, [place] 00 start date 12/30/15 18:02:00 [employer] Saline Lock No Kyle K 10 mL, Me moria Flush 3-11 Silvestre Soln, IV l 00:02: Push, As [place] 00 Indicated PRN for flush, first dose 12/30/15 18:02:00 [employer] Bupivacaine No Kyle K 300 mL, M emoria 0.25% 300 3-11 Silvestre Nerve l mL pump 300 00:02: Block, 5 He rmann mL 00 mL/hr, start date 12/30/15 18:02:00 [employer] promethazin No Kyle K 12.5 mg = Memoria e 3-11 Silvestre 0.5 mL, l 00:02: Injection, [place] 00 IM, Once PRN for severe nausea, first dose 12/30/15 18:02:00 [employer] albuterol No Kyle K 2.5 mg = 3 Memoria 2.5 mg/3 mL 3-11 Silvestre mL, Soln, l (0.083%) 00:02: NEB, Once Herm connie inhalation 00 PRN for solution wheezing, first dose 12/30/15 18:02:00 [employer] Demerol HCl No Kyle K 12.5 mg = Memoria 3-11 Silvestre 0.25 mL, l 00:02: Injection, Denis 00 IV Push, Once PRN for shivers, first dose 12/30/15 18:02:00 [employer] ondansetron No Kyle K 4 mg = 2 Memoria 3-11 Silvestre mL, l 00:02: Injection, [place] 00 IV Push, q15min PRN for nausea/vom iting, order duration: 2 doses, first dose 12/30/15 18:02:00 [employer], stop date Limited # of times Dilaudid No Kyle K 0.5 mg = Mem oria 3-11 Silvestre 0.25 mL, l 00:02: Injection, [place] 00 IV Push, q10min PRN for pain severe (7-10), first dose 12/30/15 18:02:00 [employer] diphenhydrA No Kyle K 25 mg = M emoria MINE 3-11 Silvestre 0.5 mL, l 00:02: Injection, Denis 00 IV Push, Once PRN for itching, first dose 12/30/15 18:02:00 [employer] LR 1,000 mL No Kyle K 1,000 mL, Memoria 3-11 Silvestre IV, 75 l 00:02: mL/hr, [place] 00 start date 12/30/15 18:02:00 [employer] Saline Lock No Kyle K 10 mL, Me moria Flush 3-11 Silvestre Soln, IV l 00:02: Push, As [place] 00 Indicated PRN for flush, first dose 12/30/15 18:02:00 [employer] Bupivacaine No Kyle K 300 mL, M emoria 0.25% 300 3-11 Silvestre Nerve l mL pump 300 00:02: Block, 5 He r[place] mL 00 mL/hr, start date 12/30/15 18:02:00 [employer] promethazin No Kyle K 12.5 mg = Memoria e 3-11 Silvestre 0.5 mL, l 00:02: Injection, Denis 00 IM, Once PRN for severe nausea, first dose 12/30/15 18:02:00 [employer] albuterol No Kyle K 2.5 mg = 3 Memoria 2.5 mg/3 mL 3-11 Silvestre mL, Soln, l (0.083%) 00:02: NEB, Once Herm connie inhalation 00 PRN for solution wheezing, first dose 12/30/15 18:02:00 [employer] Demerol HCl No Kyle K 12.5 mg = Memoria 3-11 Silvestre 0.25 mL, l 00:02: Injection, Denis 00 IV Push, Once PRN for shivers, first dose 12/30/15 18:02:00 [employer] ondansetron No Kyle K 4 mg = 2 Memoria 3-11 Silvestre mL, l 00:02: Injection, [place] 00 IV Push, q15min PRN for nausea/vom iting, order duration: 2 doses, first dose 12/30/15 18:02:00 [employer], stop date Limited # of times Dilaudid No Kyle K 0.5 mg = Mem oria 3-11 Silvestre 0.25 mL, l 00:02: Injection, [place] 00 IV Push, q10min PRN for pain severe (7-10), first dose 12/30/15 18:02:00 [employer] diphenhydrA No Kyle K 25 mg = M emoria MINE 3-11 Silvestre 0.5 mL, l 00:02: Injection, Denis 00 IV Push, Once PRN for itching, first dose 12/30/15 18:02:00 [employer] LR 1,000 mL No Kyle K 1,000 mL, Memoria 3-11 Silvestre IV, 75 l 00:02: mL/hr, Denis 00 start date 12/30/15 18:02:00 [employer] Saline Lock No Kyle K 10 mL, Me moria Flush 3-11 Silvestre Soln, IV l 00:02: Push, As [place] 00 Indicated PRN for flush, first dose 12/30/15 18:02:00 [employer] Bupivacaine No Kyle K 300 mL, M emoria 0.25% 300 3-11 Silvestre Nerve l mL pump 300 00:02: Block, 5 He r[place] mL 00 mL/hr, start date 12/30/15 18:02:00 [employer] promethazin No Kyle K 12.5 mg = Memoria e 3-11 Silvestre 0.5 mL, l 00:02: Injection, Denis 00 IM, Once PRN for severe nausea, first dose 12/30/15 18:02:00 [employer] albuterol No Kyle K 2.5 mg = 3 Memoria 2.5 mg/3 mL 3-11 Silvestre mL, Soln, l (0.083%) 00:02: NEB, Once Herm connie inhalation 00 PRN for solution wheezing, first dose 12/30/15 18:02:00 [employer] Demerol HCl No Kyle K 12.5 mg = Memoria 3-11 Silvestre 0.25 mL, l 00:02: Injection, [place] 00 IV Push, Once PRN for shivers, first dose 12/30/15 18:02:00 [employer] ondansetron No Kyle K 4 mg = 2 Memoria 3-11 Silvestre mL, l 00:02: Injection, Denis 00 IV Push, q15min PRN for nausea/vom iting, order duration: 2 doses, first dose 12/30/15 18:02:00 [employer], stop date Limited # of times Dilaudid No Kyle K 0.5 mg = Mem oria 3-11 Silvestre 0.25 mL, l 00:02: Injection, [place] 00 IV Push, q10min PRN for pain severe (7-10), first dose 12/30/15 18:02:00 [employer] diphenhydrA No Kyle K 25 mg = M emoria MINE 3-11 Silvestre 0.5 mL, l 00:02: Injection, [place] 00 IV Push, Once PRN for itching, first dose 12/30/15 18:02:00 [employer] LR 1,000 mL No Kyle K 1,000 mL, Memoria 3-11 Silvestre IV, 75 l 00:02: mL/hr, Denis 00 start date 12/30/15 18:02:00 [employer] Saline Lock No Kyle K 10 mL, Me moria Flush 3-11 Silvestre Soln, IV l 00:02: Push, As Denis 00 Indicated PRN for flush, first dose 12/30/15 18:02:00 [employer] Bupivacaine No Kyle K 300 mL, M emoria 0.25% 300 3-11 Silvestre Nerve l mL pump 300 00:02: Block, 5 He r[place] mL 00 mL/hr, start date 12/30/15 18:02:00 [employer] promethazin No Kyle K 12.5 mg = Memoria e 3-11 Silvestre 0.5 mL, l 00:02: Injection, Denis 00 IM, Once PRN for severe nausea, first dose 12/30/15 18:02:00 [employer] albuterol No Kyle K 2.5 mg = 3 Memoria 2.5 mg/3 mL 3-11 Silvestre mL, Soln, l (0.083%) 00:02: NEB, Once Herm connie inhalation 00 PRN for solution wheezing, first dose 12/30/15 18:02:00 [employer] Demerol HCl No Kyle K 12.5 mg = Memoria 3-11 Silvestre 0.25 mL, l 00:02: Injection, [place] 00 IV Push, Once PRN for shivers, first dose 12/30/15 18:02:00 [employer] ondansetron No Kyle K 4 mg = 2 Memoria 3-11 Silvestre mL, l 00:02: Injection, [place] 00 IV Push, q15min PRN for nausea/vom iting, order duration: 2 doses, first dose 12/30/15 18:02:00 [employer], stop date Limited # of times Dilaudid No Kyle K 0.5 mg = Mem oria 3-11 Silvestre 0.25 mL, l 00:02: Injection, [place] 00 IV Push, q10min PRN for pain severe (7-10), first dose 12/30/15 18:02:00 [employer] diphenhydrA No Kyle K 25 mg = M emoria MINE 3-11 Silvestre 0.5 mL, l 00:02: Injection, Denis 00 IV Push, Once PRN for itching, first dose 12/30/15 18:02:00 [employer] LR 1,000 mL No Kyle K 1,000 mL, Memoria 3-11 Silvestre IV, 75 l 00:02: mL/hr, Denis 00 start date 12/30/15 18:02:00 [employer] Saline Lock No Kyle K 10 mL, Me moria Flush 3-11 Silvestre Soln, IV l 00:02: Push, As Denis 00 Indicated PRN for flush, first dose 12/30/15 18:02:00 [employer] Bupivacaine No Kyle K 300 mL, M emoria 0.25% 300 3-11 Silvestre Nerve l mL pump 300 00:02: Block, 5 He rmann mL 00 mL/hr, start date 12/30/15 18:02:00 [employer] promethazin No Kyle K 12.5 mg = Memoria e 3-11 Silvestre 0.5 mL, l 00:02: Injection, [place] 00 IM, Once PRN for severe nausea, first dose 12/30/15 18:02:00 [employer] albuterol No Kyle K 2.5 mg = 3 Memoria 2.5 mg/3 mL 3-11 Silvestre mL, Soln, l (0.083%) 00:02: NEB, Once Herm connie inhalation 00 PRN for solution wheezing, first dose 12/30/15 18:02:00 [employer] Demerol HCl No Kyle K 12.5 mg = Memoria 3-11 Silvestre 0.25 mL, l 00:02: Injection, Denis 00 IV Push, Once PRN for shivers, first dose 12/30/15 18:02:00 [employer] ondansetron No Kyle K 4 mg = 2 Memoria 3-11 Silvestre mL, l 00:02: Injection, Denis 00 IV Push, q15min PRN for nausea/vom iting, order duration: 2 doses, first dose 12/30/15 18:02:00 [employer], stop date Limited # of times Dilaudid No Kyle K 0.5 mg = Mem oria 3-11 Silvestre 0.25 mL, l 00:02: Injection, [place] 00 IV Push, q10min PRN for pain severe (7-10), first dose 12/30/15 18:02:00 [employer] diphenhydrA No Kyle K 25 mg = M emoria MINE 3-11 Silvestre 0.5 mL, l 00:02: Injection, [place] IV Push, Once PRN for itching, first dose 12/30/15 18:02:00 [employer] LR 1,000 mL No Kyle K 1,000 mL, Memoria 3-11 Silvestre IV, 75 l 00:02: mL/hr, start date 12/30/15 18:02:00 [employer] Saline Lock No Kyle K 10 mL, Me moria Flush 3-11 Silvestre Soln, IV l 00:02: Push, As Indicated PRN for flush, first dose 12/30/15 18:02:00 [employer] Bupivacaine No Kyle K 300 mL, M emoria 0.25% 300 3-11 Silvestre Nerve l mL pump 300 00:02: Block, 5 He rmann mL 00 mL/hr, start date 12/30/15 18:02:00 [employer] [facility] [place] No Perico 1,000 mL, Memori a Medication 3-10 Wheat Soln-IV, l 23:42: IV, Once, first dose 12/30/15 17:42:00 [employer], stop date 12/30/15 17:42:00 [employer] [facility] No Perico 1,000 mL, Memori a Medication 3-10 Wheat Soln-IV, l 23:42: IV, Once, first dose 12/30/15 17:42:00 [employer], stop date 12/30/15 17:42:00 [employer] [facility] No Perico 1,000 mL, Memori a Medication 3-10 Wheat Soln-IV, l 23:42: IV, Once, [place] 00 first dose 12/30/15 17:42:00 [employer], stop date 12/30/15 17:42:00 [employer] [facility] [place] No Perico 1,000 mL, Memori a Medication 3-10 Wheat Soln-IV, l 23:42: IV, Once, Denis 00 first dose 12/30/15 17:42:00 [employer], stop date 12/30/15 17:42:00 [employer] [facility] [place] No Perico 1,000 mL, Memori a Medication 3-10 Wheat Soln-IV, l 23:42: IV, Once, Denis 00 first dose 12/30/15 17:42:00 [employer], stop date 12/30/15 17:42:00 [employer] [facility] [place] No Perico 1,000 mL, Memori a Medication 3-10 Wheat Soln-IV, l 23:42: IV, Once, Denis 00 first dose 12/30/15 17:42:00 [employer], stop date 12/30/15 17:42:00 [employer] fentaNYL No Perico 25 mcg = Mem oria 3-10 Wheat 0.5 mL, l 23:20: Injection, [place] 00 IV, Once, first dose 12/30/15 17:20:00 [employer], stop date 12/30/15 17:20:00 [employer] fentaNYL No Perico 25 mcg = Mem oria 3-10 Wheat 0.5 mL, l 23:20: Injection, [place] 00 IV, Once, first dose 12/30/15 17:20:00 [employer], stop date 12/30/15 17:20:00 [employer] fentaNYL No Perico 25 mcg = Mem oria 3-10 Wheat 0.5 mL, l 23:20: Injection, [place] 00 IV, Once, first dose 12/30/15 17:20:00 [employer], stop date 12/30/15 17:20:00 [employer] fentaNYL No Perico 25 mcg = Mem oria 3-10 Wheat 0.5 mL, l 23:20: Injection, [place] 00 IV, Once, first dose 12/30/15 17:20:00 [employer], stop date 12/30/15 17:20:00 [employer] fentaNYL 2016-0 No Perico 25 mcg = Mem oria 3-10 Wheat 0.5 mL, l 23:20: Injection, [place] 00 IV, Once, first dose 12/30/15 17:20:00 [employer], stop date 12/30/15 17:20:00 [employer] fentaNYL 2016-0 No Perico 25 mcg = Mem oria 3-10 Wheat 0.5 mL, l 23:20: Injection, Denis 00 IV, Once, first dose 12/30/15 17:20:00 [employer], stop date 12/30/15 17:20:00 [employer] ondansetron 2016-0 No Perico 4 mg = 2 Memoria 3-10 Wheat mL, l 23:03: Injection, [place] 00 IV, Once, first dose 12/30/15 17:03:00 [employer], stop date 12/30/15 17:03:00 [employer] ondansetron 2016-0 No Perico 4 mg = 2 Memoria 3-10 Wheat mL, l 23:03: Injection, Denis 00 IV, Once, first dose 12/30/15 17:03:00 [employer], stop date 12/30/15 17:03:00 [employer] ondansetron 2016-0 No Perico 4 mg = 2 Memoria 3-10 Wheat mL, l 23:03: Injection, Denis 00 IV, Once, first dose 12/30/15 17:03:00 [employer], stop date 12/30/15 17:03:00 [employer] ondansetron 2016-0 No Perico 4 mg = 2 Memoria 3-10 Wheat mL, l 23:03: Injection, Denis 00 IV, Once, first dose 12/30/15 17:03:00 [employer], stop date 12/30/15 17:03:00 [employer] ondansetron 2016-0 No Perico 4 mg = 2 Memoria 3-10 Wheat mL, l 23:03: Injection, Denis 00 IV, Once, first dose 12/30/15 17:03:00 [employer], stop date 12/30/15 17:03:00 [employer] ondansetron 2016-0 No Perico 4 mg = 2 Memoria 3-10 Wheat mL, l 23:03: Injection, [place] 00 IV, Once, first dose 12/30/15 17:03:00 [employer], stop date 12/30/15 17:03:00 [employer] fentaNYL 2016-0 No Perico 25 mcg = Mem oria 3-10 Wheat 0.5 mL, l 23:00: Injection, Denis 00 IV, Once, first dose 12/30/15 17:00:00 [employer], stop date 12/30/15 17:00:00 [employer] fentaNYL 2016-0 No Perico 25 mcg = Mem oria 3-10 Wheat 0.5 mL, l 23:00: Injection, [place] 00 IV, Once, first dose 12/30/15 17:00:00 [employer], stop date 12/30/15 17:00:00 [employer] fentaNYL 2016-0 No Perico 25 mcg = Mem oria 3-10 Wheat 0.5 mL, l 23:00: Injection, [place] 00 IV, Once, first dose 12/30/15 17:00:00 [employer], stop date 12/30/15 17:00:00 [employer] fentaNYL 2016-0 No Perico 25 mcg = Mem oria 3-10 Wheat 0.5 mL, l 23:00: Injection, [place] 00 IV, Once, first dose 12/30/15 17:00:00 [employer], stop date 12/30/15 17:00:00 [employer] fentaNYL 2016-0 No Perico 25 mcg = Mem oria 3-10 Wheat 0.5 mL, l 23:00: Injection, [place] 00 IV, Once, first dose 12/30/15 17:00:00 [employer], stop date 12/30/15 17:00:00 [employer] fentaNYL 2016-0 No Perico 25 mcg = Mem oria 3-10 Wheat 0.5 mL, l 23:00: Injection, [place] 00 IV, Once, first dose 12/30/15 17:00:00 [employer], stop date 12/30/15 17:00:00 [employer] fentaNYL 2016-0 No Perico 25 mcg = Mem oria 3-10 Wheat 0.5 mL, l 22:48: Injection, [place] 00 IV, Once, first dose 12/30/15 16:48:00 [employer], stop date 12/30/15 16:48:00 [employer] fentaNYL 2016-0 No Perico 25 mcg = Mem oria 3-10 Wheat 0.5 mL, l 22:48: Injection, [place] 00 IV, Once, first dose 12/30/15 16:48:00 [employer], stop date 12/30/15 16:48:00 [employer] fentaNYL 2016-0 No Perico 25 mcg = Mem oria 3-10 Wheat 0.5 mL, l 22:48: Injection, [place] 00 IV, Once, first dose 12/30/15 16:48:00 [employer], stop date 12/30/15 16:48:00 [employer] fentaNYL 2016-0 No Perico 25 mcg = Mem oria 3-10 Wheat 0.5 mL, l 22:48: Injection, [place] 00 IV, Once, first dose 12/30/15 16:48:00 [employer], stop date 12/30/15 16:48:00 [employer] fentaNYL 2016-0 No Perico 25 mcg = Mem oria 3-10 Wheat 0.5 mL, l 22:48: Injection, [place] 00 IV, Once, first dose 12/30/15 16:48:00 [employer], stop date 12/30/15 16:48:00 [employer] fentaNYL 2016-0 No Perico 25 mcg = Mem oria 3-10 Wheat 0.5 mL, l 22:48: Injection, [place] 00 IV, Once, first dose 12/30/15 16:48:00 [employer], stop date 12/30/15 16:48:00 [employer] fentaNYL 2016-0 No Perico 25 mcg = Mem oria 3-10 Wheat 0.5 mL, l 22:37: Injection, Denis 00 IV, Once, first dose 12/30/15 16:37:00 [employer], stop date 12/30/15 16:37:00 [employer] fentaNYL 2016-0 No Perico 25 mcg = Mem oria 3-10 Wheat 0.5 mL, l 22:37: Injection, Denis 00 IV, Once, first dose 12/30/15 16:37:00 [employer], stop date 12/30/15 16:37:00 [employer] fentaNYL 2016-0 No Perico 25 mcg = Mem oria 3-10 Wheat 0.5 mL, l 22:37: Injection, Denis 00 IV, Once, first dose 12/30/15 16:37:00 [employer], stop date 12/30/15 16:37:00 [employer] fentaNYL 2016-0 No Perico 25 mcg = Mem oria 3-10 Wheat 0.5 mL, l 22:37: Injection, [place] 00 IV, Once, first dose 12/30/15 16:37:00 [employer], stop date 12/30/15 16:37:00 [employer] fentaNYL 2015-0 No Perico 25 mcg = Mem oria 3-10 Wheat 0.5 mL, l 22:37: Injection, [place] 00 IV, Once, first dose 12/30/15 16:37:00 [employer], stop date 12/30/15 16:37:00 [employer] fentaNYL 2015-0 No Perico 25 mcg = Mem oria 3-10 Wheat 0.5 mL, l 22:37: Injection, Denis 00 IV, Once, first dose 12/30/15 16:37:00 [employer], stop date 12/30/15 16:37:00 [employer] dexamethaso 2016-0 No Perico 8 mg = 2 Memoria ne 3-10 Wheat mL, l 22:23: Injection, [place] 00 IV, Once, first dose 12/30/15 16:23:00 [employer], stop date 12/30/15 16:23:00 [employer] dexamethaso 2016-0 No Perico 8 mg = 2 Memoria ne 3-10 Wheat mL, l 22:23: Injection, Denis 00 IV, Once, first dose 12/30/15 16:23:00 [employer], stop date 12/30/15 16:23:00 [employer] dexamethaso 2016-0 No Perico 8 mg = 2 Memoria ne 3-10 Wheat mL, l 22:23: Injection, [place] 00 IV, Once, first dose 12/30/15 16:23:00 [employer], stop date 12/30/15 16:23:00 [employer] dexamethaso 2016-0 No Perico 8 mg = 2 Memoria ne 3-10 Wheat mL, l 22:23: Injection, [place] 00 IV, Once, first dose 12/30/15 16:23:00 [employer], stop date 12/30/15 16:23:00 [employer] dexamethaso 2016-0 No Perico 8 mg = 2 Memoria ne 3-10 Wheat mL, l 22:23: Injection, Denis 00 IV, Once, first dose 12/30/15 16:23:00 [employer], stop date 12/30/15 16:23:00 [employer] dexamethaso 2016-0 No Perico 8 mg = 2 Memoria ne 3-10 Wheat mL, l 22:23: Injection, [place] 00 IV, Once, first dose 12/30/15 16:23:00 [employer], stop date 12/30/15 16:23:00 [employer] [facility] [place] 2015-0 No Perico 1,000 mL, Memori a Medication 3-10 Wheat Soln-IV, l 22:21: IV, Once, [place] 00 first dose 12/30/15 16:21:00 [employer], stop date 12/30/15 16:21:00 [employer] [facility] [place] 0 No Perico 1,000 mL, Memori a Medication 3-10 Wheat Soln-IV, l 22:21: IV, Once, Denis 00 first dose 12/30/15 16:21:00 [employer], stop date 12/30/15 16:21:00 [employer] [facility] [place] 0 No Perico 1,000 mL, Memori a Medication 3-10 Wheat Soln-IV, l 22:21: IV, Once, Denis 00 first dose 12/30/15 16:21:00 [employer], stop date 12/30/15 16:21:00 [employer] [facility] [place] 0 No Perico 1,000 mL, Memori a Medication 3-10 Wheat Soln-IV, l 22:21: IV, Once, first dose 12/30/15 16:21:00 [employer], stop date 12/30/15 16:21:00 [employer] [facility] [place] 0 No Perico 1,000 mL, Memori a Medication 3-10 Wheat Soln-IV, l 22:21: IV, Once, [place] 00 first dose 12/30/15 16:21:00 [employer], stop date 12/30/15 16:21:00 [employer] [facility] [place] 0 No Perico 1,000 mL, Memori a Medication 3-10 Wheat Soln-IV, l 22:21: IV, Once, first dose 12/30/15 16:21:00 [employer], stop date 12/30/15 16:21:00 [employer] clindamycin 2015-0 Yes Perico 928.125 M emoria 3-10 Wheat mg, l 22:18: Soln-IV, Denis 00 IV, Once, first dose 12/30/15 16:18:00 [employer], stop date 12/30/15 16:18:00 [employer] clindamycin 0 Yes Perico 928.125 M emoria 3-10 Wheat mg, l 22:18: Soln-IV, Denis 00 IV, Once, first dose 12/30/15 16:18:00 [employer], stop date 12/30/15 16:18:00 [employer] clindamycin 0 Yes Perico 928.125 M emoria 3-10 Wheat mg, l 22:18: Soln-IV, [place] 00 IV, Once, first dose 12/30/15 16:18:00 [employer], stop date 12/30/15 16:18:00 [employer] clindamycin Yes Per[place] 928.125 M emoria 3-10 Wheat mg, l 22:18: Soln-IV, [place] 00 IV, Once, first dose 12/30/15 16:18:00 [employer], stop date 12/30/15 16:18:00 [employer] clindamycin Yes Per[place] 928.125 M emoria 3-10 Wheat mg, l 22:18: Soln-IV, [place] 00 IV, Once, first dose 12/30/15 16:18:00 [employer], stop date 12/30/15 16:18:00 [employer] clindamycin 0 Yes Perico 928.125 M emoria 3-10 Wheat mg, l 22:18: Soln-IV, [place] 00 IV, Once, first dose 12/30/15 16:18:00 [employer], stop date 12/30/15 16:18:00 [employer] fentaNYL 0 No Perico 25 mcg = Mem oria 3-10 Wheat 0.5 mL, l 22:05: Injection, [place] 00 IV, Once, first dose 12/30/15 16:05:00 [employer], stop date 12/30/15 16:05:00 [employer] midazolam No Perico 0.5 mg = Me moria 3-10 Wheat 0.5 mL, l 22:05: Injection, [place] 00 IV, Once, first dose 12/30/15 16:05:00 [employer], stop date 12/30/15 16:05:00 [employer] fentaNYL No Perico 25 mcg = Mem oria 3-10 Wheat 0.5 mL, l 22:05: Injection, [place] 00 IV, Once, first dose 12/30/15 16:05:00 [employer], stop date 12/30/15 16:05:00 [employer] midazolam 2016-0 No Perico 0.5 mg = Me moria 3-10 Wheat 0.5 mL, l 22:05: Injection, [place] 00 IV, Once, first dose 12/30/15 16:05:00 [employer], stop date 12/30/15 16:05:00 [employer] fentaNYL 2015-0 No Perico 25 mcg = Mem oria 3-10 Wheat 0.5 mL, l 22:05: Injection, [place] 00 IV, Once, first dose 12/30/15 16:05:00 [employer], stop date 12/30/15 16:05:00 [employer] midazolam 2015-0 No Perico 0.5 mg = Me moria 3-10 Wheat 0.5 mL, l 22:05: Injection, [place] 00 IV, Once, first dose 12/30/15 16:05:00 [employer], stop date 12/30/15 16:05:00 [employer] fentaNYL 2015-0 No Perico 25 mcg = Mem oria 3-10 Wheat 0.5 mL, l 22:05: Injection, [place] 00 IV, Once, first dose 12/30/15 16:05:00 [employer], stop date 12/30/15 16:05:00 [employer] midazolam 2016-0 No Perico 0.5 mg = Me moria 3-10 Wheat 0.5 mL, l 22:05: Injection, [place] 00 IV, Once, first dose 12/30/15 16:05:00 [employer], stop date 12/30/15 16:05:00 [employer] fentaNYL 2016-0 No Perico 25 mcg = Mem oria 3-10 Wheat 0.5 mL, l 22:05: Injection, [place] 00 IV, Once, first dose 12/30/15 16:05:00 [employer], stop date 12/30/15 16:05:00 [employer] midazolam 2015-0 No Perico 0.5 mg = Me moria 3-10 Wheat 0.5 mL, l 22:05: Injection, [place] 00 IV, Once, first dose 12/30/15 16:05:00 [employer], stop date 12/30/15 16:05:00 [employer] fentaNYL 2016-0 No Perico 25 mcg = Mem oria 3-10 Wheat 0.5 mL, l 22:05: Injection, [place] 00 IV, Once, first dose 12/30/15 16:05:00 [employer], stop date 12/30/15 16:05:00 [employer] midazolam No Perico 0.5 mg = Me moria 3-10 Wheat 0.5 mL, l 22:05: Injection, [place] 00 IV, Once, first dose 12/30/15 16:05:00 [employer], stop date 12/30/15 16:05:00 [employer] lidocaine No Perico 3 mL, Memor ia 3-10 Wheat Injection, l 21:58: IV, Once, [place] 00 first dose 12/30/15 15:58:00 [employer], stop date 12/30/15 15:58:00 [employer] propofol No Perico 120 mg = Mem oria 3-10 Wheat 12 mL, l 21:58: Emulsion, [place] 00 IV, Once, first dose 12/30/15 15:58:00 [employer], stop date 12/30/15 15:58:00 [employer] lidocaine No Perico 3 mL, Memor ia 3-10 Wheat Injection, l 21:58: IV, Once, [place] 00 first dose 12/30/15 15:58:00 [employer], stop date 12/30/15 15:58:00 [employer] propofol No Perico 120 mg = Mem oria 3-10 Wheat 12 mL, l 21:58: Emulsion, [place] 00 IV, Once, first dose 12/30/15 15:58:00 [employer], stop date 12/30/15 15:58:00 [employer] lidocaine No Perico 3 mL, Memor ia 3-10 Wheat Injection, l 21:58: IV, Once, [place] 00 first dose 12/30/15 15:58:00 [employer], stop date 12/30/15 15:58:00 [employer] propofol No Perico 120 mg = Mem oria 3-10 Wheat 12 mL, l 21:58: Emulsion, [place] 00 IV, Once, first dose 12/30/15 15:58:00 [employer], stop date 12/30/15 15:58:00 [employer] lidocaine No Perico 3 mL, Memor ia 3-10 Wheat Injection, l 21:58: IV, Once, [place] 00 first dose 12/30/15 15:58:00 [employer], stop date 12/30/15 15:58:00 [employer] propofol No Perico 120 mg = Mem oria 3-10 Wheat 12 mL, l 21:58: Emulsion, [place] 00 IV, Once, first dose 12/30/15 15:58:00 [employer], stop date 12/30/15 15:58:00 [employer] lidocaine No Perico 3 mL, Memor ia 3-10 Wheat Injection, l 21:58: IV, Once, [place] 00 first dose 12/30/15 15:58:00 [employer], stop date 12/30/15 15:58:00 [employer] propofol No Perico 120 mg = Mem oria 3-10 Wheat 12 mL, l 21:58: Emulsion, [place] 00 IV, Once, first dose 12/30/15 15:58:00 [employer], stop date 12/30/15 15:58:00 [employer] lidocaine No Perico 3 mL, Memor ia 3-10 Wheat Injection, l 21:58: IV, Once, [place] 00 first dose 12/30/15 15:58:00 [employer], stop date 12/30/15 15:58:00 [employer] propofol No Perico 120 mg = Mem oria 3-10 Wheat 12 mL, l 21:58: Emulsion, [place] 00 IV, Once, first dose 12/30/15 15:58:00 [employer], stop date 12/30/15 15:58:00 [employer] midazolam No Perico 0.5 mg = Me moria 3-10 Wheat 0.5 mL, l 21:50: Injection, [place] 00 IV, Once, first dose 12/30/15 15:50:00 [employer], stop date 12/30/15 15:50:00 [employer] fentaNYL No Perico 25 mcg = Mem oria 3-10 Wheat 0.5 mL, l 21:50: Injection, [place] 00 IV, Once, first dose 12/30/15 15:50:00 [employer], stop date 12/30/15 15:50:00 [employer] midazolam No Perico 0.5 mg = Me moria 3-10 Wheat 0.5 mL, l 21:50: Injection, [place] 00 IV, Once, first dose 12/30/15 15:50:00 [employer], stop date 12/30/15 15:50:00 [employer] fentaNYL 2015-0 No Perico 25 mcg = Mem oria 3-10 Wheat 0.5 mL, l 21:50: Injection, [place] 00 IV, Once, first dose 12/30/15 15:50:00 [employer], stop date 12/30/15 15:50:00 [employer] midazolam No Perico 0.5 mg = Me moria 3-10 Wheat 0.5 mL, l 21:50: Injection, [place] 00 IV, Once, first dose 12/30/15 15:50:00 [employer], stop date 12/30/15 15:50:00 [employer] fentaNYL No Perico 25 mcg = Mem oria 3-10 Wheat 0.5 mL, l 21:50: Injection, [place] 00 IV, Once, first dose 12/30/15 15:50:00 [employer], stop date 12/30/15 15:50:00 [employer] midazolam No Perico 0.5 mg = Me moria 3-10 Wheat 0.5 mL, l 21:50: Injection, [place] 00 IV, Once, first dose 12/30/15 15:50:00 [employer], stop date 12/30/15 15:50:00 [employer] fentaNYL No Perico 25 mcg = Mem oria 3-10 Wheat 0.5 mL, l 21:50: Injection, [place] 00 IV, Once, first dose 12/30/15 15:50:00 [employer], stop date 12/30/15 15:50:00 [employer] midazolam No Perico 0.5 mg = Me moria 3-10 Wheat 0.5 mL, l 21:50: Injection, [place] 00 IV, Once, first dose 12/30/15 15:50:00 [employer], stop date 12/30/15 15:50:00 [employer] fentaNYL No Perico 25 mcg = Mem oria 3-10 Wheat 0.5 mL, l 21:50: Injection, [place] 00 IV, Once, first dose 12/30/15 15:50:00 [employer], stop date 12/30/15 15:50:00 [employer] midazolam 2016-0 No Perico 0.5 mg = Me moria 3-10 Wheat 0.5 mL, l 21:50: Injection, [place] 00 IV, Once, first dose 12/30/15 15:50:00 [employer], stop date 12/30/15 15:50:00 [employer] fentaNYL 2016-0 No Perico 25 mcg = Mem oria 3-10 Wheat 0.5 mL, l 21:50: Injection, [place] 00 IV, Once, first dose 12/30/15 15:50:00 [employer], stop date 12/30/15 15:50:00 [employer] midazolam 2016-0 No Perico 0.5 mg = Me moria 3-10 Wheat 0.5 mL, l 21:10: Injection, [place] 00 IV, Once, first dose 12/30/15 15:10:00 [employer], stop date 12/30/15 15:10:00 [employer] fentaNYL 2016-0 No Perico 25 mcg = Mem oria 3-10 Wheat 0.5 mL, l 21:10: Injection, [place] 00 IV, Once, first dose 12/30/15 15:10:00 [employer], stop date 12/30/15 15:10:00 [employer] midazolam 2016-0 No Perico 0.5 mg = Me moria 3-10 Wheat 0.5 mL, l 21:10: Injection, [place] 00 IV, Once, first dose 12/30/15 15:10:00 [employer], stop date 12/30/15 15:10:00 [employer] fentaNYL 2016-0 No Perico 25 mcg = Mem oria 3-10 Wheat 0.5 mL, l 21:10: Injection, [place] 00 IV, Once, first dose 12/30/15 15:10:00 [employer], stop date 12/30/15 15:10:00 [employer] midazolam 2016-0 No Perico 0.5 mg = Me moria 3-10 Wheat 0.5 mL, l 21:10: Injection, [place] 00 IV, Once, first dose 12/30/15 15:10:00 [employer], stop date 12/30/15 15:10:00 [employer] fentaNYL 2016-0 No Perico 25 mcg = Mem oria 3-10 Wheat 0.5 mL, l 21:10: Injection, [place] 00 IV, Once, first dose 12/30/15 15:10:00 [employer], stop date 12/30/15 15:10:00 [employer] midazolam 2015-0 No Perico 0.5 mg = Me moria 3-10 Wheat 0.5 mL, l 21:10: Injection, [place] 00 IV, Once, first dose 12/30/15 15:10:00 [employer], stop date 12/30/15 15:10:00 [employer] fentaNYL 2015-0 No Perico 25 mcg = Mem oria 3-10 Wheat 0.5 mL, l 21:10: Injection, [place] 00 IV, Once, first dose 12/30/15 15:10:00 [employer], stop date 12/30/15 15:10:00 [employer] midazolam 2015-0 No Perico 0.5 mg = Me moria 3-10 Wheat 0.5 mL, l 21:10: Injection, [place] 00 IV, Once, first dose 12/30/15 15:10:00 [employer], stop date 12/30/15 15:10:00 [employer] fentaNYL 2015-0 No Perico 25 mcg = Mem oria 3-10 Wheat 0.5 mL, l 21:10: Injection, [place] 00 IV, Once, first dose 12/30/15 15:10:00 [employer], stop date 12/30/15 15:10:00 [employer] midazolam 2015-0 No Perico 0.5 mg = Me moria 3-10 Wheat 0.5 mL, l 21:10: Injection, [place] 00 IV, Once, first dose 12/30/15 15:10:00 [employer], stop date 12/30/15 15:10:00 [employer] fentaNYL 2015-0 No Peirco 25 mcg = Mem oria 3-10 Wheat 0.5 mL, l 21:10: Injection, [place] 00 IV, Once, first dose 12/30/15 15:10:00 [employer], stop date 12/30/15 15:10:00 [employer] fentaNYL 2016-0 No Perico 25 mcg = Mem oria 3-10 Wheat 0.5 mL, l 21:05: Injection, [place] 00 IV, Once, first dose 12/30/15 15:05:00 [employer], stop date 12/30/15 15:05:00 [employer] midazolam 2015-0 No Perico 0.5 mg = Me moria 3-10 Wheat 0.5 mL, l 21:05: Injection, [place] 00 IV, Once, first dose 12/30/15 15:05:00 [employer], stop date 12/30/15 15:05:00 [employer] fentaNYL 2015-0 No Perico 25 mcg = Mem oria 3-10 Wheat 0.5 mL, l 21:05: Injection, [place] 00 IV, Once, first dose 12/30/15 15:05:00 [employer], stop date 12/30/15 15:05:00 [employer] midazolam 2015-0 No Perico 0.5 mg = Me moria 3-10 Wheat 0.5 mL, l 21:05: Injection, [place] 00 IV, Once, first dose 12/30/15 15:05:00 [employer], stop date 12/30/15 15:05:00 [employer] fentaNYL 2015-0 No Perico 25 mcg = Mem oria 3-10 Wheat 0.5 mL, l 21:05: Injection, [place] 00 IV, Once, first dose 12/30/15 15:05:00 [employer], stop date 12/30/15 15:05:00 [employer] midazolam 2015-0 No Perico 0.5 mg = Me moria 3-10 Wheat 0.5 mL, l 21:05: Injection, [place] 00 IV, Once, first dose 12/30/15 15:05:00 [employer], stop date 12/30/15 15:05:00 [employer] fentaNYL 2015-0 No Perico 25 mcg = Mem oria 3-10 Wheat 0.5 mL, l 21:05: Injection, [place] 00 IV, Once, first dose 12/30/15 15:05:00 [employer], stop date 12/30/15 15:05:00 [employer] midazolam 2015-0 No Perico 0.5 mg = Me moria 3-10 Wheat 0.5 mL, l 21:05: Injection, [place] 00 IV, Once, first dose 12/30/15 15:05:00 [employer], stop date 12/30/15 15:05:00 [employer] fentaNYL 2015-0 No Perico 25 mcg = Mem oria 3-10 Wheat 0.5 mL, l 21:05: Injection, [place] 00 IV, Once, first dose 12/30/15 15:05:00 [employer], stop date 12/30/15 15:05:00 [employer] midazolam 2016-0 No Perico 0.5 mg = Me moria 3-10 Wheat 0.5 mL, l 21:05: Injection, [place] 00 IV, Once, first dose 12/30/15 15:05:00 [employer], stop date 12/30/15 15:05:00 [employer] fentaNYL 2015- No Perico 25 mcg = Mem oria 3-10 Wheat 0.5 mL, l 21:05: Injection, [place] 00 IV, Once, first dose 12/30/15 15:05:00 [employer], stop date 12/30/15 15:05:00 [employer] midazolam No Perico 0.5 mg = Me moria 3-10 Wheat 0.5 mL, l 21:05: Injection, [place] 00 IV, Once, first dose 12/30/15 15:05:00 [employer], stop date 12/30/15 15:05:00 [employer] clindamycin No Jose Francisco 900 mg, IV Memoria 3-10 Johnson Piggyback, l 20:00: Once, [place] 00 infuse over 30 minutes, first dose 12/30/15 14:00:00 [employer], stop date 12/30/15 14:00:00 [employer], Prophylaxi s clindamycin No Jose Francisco 900 mg, IV Memoria 3-10 Johnson Piggyback, l 20:00: Once, [place] 00 infuse over 30 minutes, first dose 12/30/15 14:00:00 [employer], stop date 12/30/15 14:00:00 [employer], Prophylaxi s clindamycin No Jose Francisco 900 mg, IV Memoria 3-10 Johnson Piggyback, l 20:00: Once, [place] 00 infuse over 30 minutes, first dose 12/30/15 14:00:00 [employer], stop date 12/30/15 14:00:00 [employer], Prophylaxi s clindamycin 0 No Jose Francisco 900 mg, IV Memoria 3-10 Johnson Piggyback, l 20:00: Once, Denis 00 infuse over 30 minutes, first dose 12/30/15 14:00:00 [employer], stop date 12/30/15 14:00:00 [employer], Prophylaxi s clindamycin 0 No Jose Francisco 900 mg, IV Memoria 3-10 Johnson Piggyback, l 20:00: Once, [place] 00 infuse over 30 minutes, first dose 12/30/15 14:00:00 [employer], stop date 12/30/15 14:00:00 [employer], Prophylaxi s clindamycin No Jose Francisco 900 mg, IV Memoria 3-10 Johnson Piggyback, l 20:00: Once, [place] 00 infuse over 30 minutes, first dose 12/30/15 14:00:00 [employer], stop date 12/30/15 14:00:00 [employer], Prophylaxi s LR 1,000 mL No Kyle K 1,000 mL, Memoria 3-10 Silvestre IV, 30 l 19:27: mL/hr, start date 12/30/15 13:27:00 [employer] Lidocaine No Kyle K 0.2 mL, Mem oria 2% 0.2 mL 3-10 Silvestre Injection, l IV Start 19:27: Subcutaneo [facility]] 00 us, Once PRN for other (see comment), first dose 12/30/15 13:27:00 [employer] LR 1,000 mL No Kyle K 1,000 mL, Memoria 3-10 Silvestre IV, 30 l 19:27: mL/hr, [place] 00 start date 12/30/15 13:27:00 [employer] Lidocaine No Kyle K 0.2 mL, Mem oria 2% 0.2 mL 3-10 Silvestre Injection, l IV Start 19:27: Subcutaneo [facility] [[facility]] 00 us, Once PRN for other (see comment), first dose 12/30/15 13:27:00 [employer] LR 1,000 mL No Kyle K 1,000 mL, Memoria 3-10 Silvestre IV, 30 l 19:27: mL/hr, Denis 00 start date 12/30/15 13:27:00 [employer] Lidocaine No Kyle K 0.2 mL, Mem oria 2% 0.2 mL 3-10 Silvestre Injection, l IV Start 19:27: [facility]o [facility] 00 us, Once PRN for other (see comment), first dose 12/30/15 13:27:00 [employer] LR 1,000 mL No Kyle K 1,000 mL, Memoria 3-10 Silvestre IV, 30 l 19:27: mL/hr, [place] start date 12/30/15 13:27:00 [employer] Lidocaine No Kyle K 0.2 mL, Mem oria 2% 0.2 mL 3-10 Silvestre Injection, l IV Start 19:27: Subcutaneo [facility] [[facility]] 00 us, Once PRN for other (see comment), first dose 12/30/15 13:27:00 [employer] LR 1,000 mL No Kyle K 1,000 mL, Memoria 3-10 Silvestre IV, 30 l 19:27: mL/hr, [place] start date 12/30/15 13:27:00 [employer] Lidocaine No Kyle K 0.2 mL, Mem oria 2% 0.2 mL 3-10 Silvestre Injection, l IV Start 19:27: Subcutaneo [facility] [[facility]] 00 us, Once PRN for other (see comment), first dose 12/30/15 13:27:00 [employer] LR 1,000 mL No Kyle K 1,000 mL, Memoria 3-10 Silvestre IV, 30 l 19:27: mL/hr, [place] start date 12/30/15 13:27:00 [employer] Lidocaine No Kyle K 0.2 mL, Mem oria 2% 0.2 mL 3-10 Silvestre Injection, l IV Start 19:27: Subcutaneo [facility] [[facility]] 00 us, Once PRN for other (see comment), first dose 12/30/15 13:27:00 [employer] Seroquel Yes 100 mg, Memori a 3-09 Oral, l 14:40: Daily, 0 [place] 00 Refill(s), migraines acetaminoph Yes 1 tabs, Mem oria en-HYDROcod 3-09 Oral, l one 325 14:40: q6hr, 0 [place] mg-5 mg 00 Refill(s), oral tablet pain traMADol 50 Yes 50 mg = 1 M emoria mg oral 3-09 tabs, l tablet 14:40: Oral, Denis 00 q4hr, 0 Refill(s), pain amLODIPine- Yes 1 tabs, [facility] atorvastati - Oral, qHS, l n 5 mg-40 14:40: 0 Denis mg oral 00 Refill(s), tablet cholestero l/hyperten will Osteo 2015- Yes Oral, Memoria Bi-Flex 12-28 Daily, 0 l 14:40: Refill(s), [place] 00 supplement Nature's Yes 1,000 mg = [...] migraines Seroquel Yes 100 mg, Memori a 12-28 Oral, l 14:40: Daily, 0 [place] 00 Refill(s), migraines acetaminoph Yes 1 tabs, Mem oria en-HYDROcod 12-28 Oral, l one 325 14:40: q6hr, 0 [place] mg-5 mg 00 Refill(s), oral tablet pain traMADol 50 Yes 50 mg = 1 M emoria mg oral - tabs, l tablet 14:40: Oral, [place] 00 q4hr, 0 Refill(s), pain amLODIPine- Yes 1 tabs, [facility] atorvastati 12-28 Oral, qHS, l n 5 mg-40 14:40: 0 [place] mg oral 00 Refill(s), tablet cholestero l/hyperten will Osteo 2015- Yes Oral, [facility] Bi-Flex 12-28 Daily, 0 l 14:40: Refill(s), Denis 00 supplement Nature's Yes 1,000 mg = Mem oria Bounty Red - 2 caps, l Krill Oil 14:40: Oral, BID, He r[place] 500 mg oral 00 0 capsule Refill(s), supplement aspirin 81 Yes 81 mg = 1 Me moria mg oral - tabs, l tablet 14:40: Oral, [place] 00 Daily, 0 Refill(s), supplement Axert 12.5 Yes 12.5 mg = Me moria mg oral 12-28 1 tabs, l tablet 14:40: Oral, Denis 00 Once, PRN for migraine headache, may repeat dose once in 2 hours, # 6 tabs, 0 Refill(s), migrainesm ay repeat dose once in 2 hours Wellbutrin Yes 300 mg, Turner arnoldo XL 12-28 Oral, l 14:40: q24hr, 0 [place] 00 Refill(s), migraines Seroquel Yes 100 mg, Memori a 12-28 Oral, l 14:40: Daily, 0 [place] 00 Refill(s), migraines acetaminoph Yes 1 tabs, Mem [facility] en-HYDROcod - Oral, l one 325 14:40: q6hr, 0 [place] mg-5 mg 00 Refill(s), oral tablet pain traMADol 50 Yes 50 mg = 1 M emoria mg oral - tabs, l tablet 14:40: Oral, [place] 00 q4hr, 0 Refill(s), pain amLODIPine- Yes 1 tabs, [facility] atorvastati - Oral, qHS, l n 5 mg-40 14:40: 0 [place] mg oral 00 Refill(s), tablet cholestero l/hyperten [...] 12-28 1 tabs, l tablet 14:40: Oral, [place] 00 Once, PRN for migraine headache, may repeat dose once in 2 hours, # 6 tabs, 0 Refill(s), migrainesm ay repeat dose once in 2 hours Wellbutrin Yes 300 mg, Turner arnoldo XL 3-09 Oral, l 14:40: q24hr, 0 [place] 00 Refill(s), migraines Seroquel Yes 100 mg, Memori a - Oral, l 14:40: Daily, 0 [place] 00 Refill(s), migraines acetaminoph Yes 1 tabs, Mem [facility] en-HYDROcod - Oral, l one 325 14:40: q6hr, 0 [place] mg-5 mg 00 Refill(s), oral tablet pain traMADol 50 Yes 50 mg = 1 M emoria mg oral 3- tabs, l tablet 14:40: Oral, [place] 00 q4hr, 0 Refill(s), pain amLODIPine- Yes 1 tabs, [facility] atorvastati -09 Oral, qHS, l n 5 mg-40 14:40: 0 [place] mg oral 00 Refill(s), tablet cholestero l/hyperten will Osteo Yes Oral, [facility] Bi-Flex 3-09 Daily, 0 l 14:40: Refill(s), [place] 00 supplement Nature's Yes 1,000 mg = Mem oria Bounty Red 12-28 2 caps, l Krill Oil 14:40: Oral, BID, He rmann 500 mg oral 00 0 capsule Refill(s), supplement aspirin 81 Yes 81 mg = 1 Me moria mg oral 3-09 tabs, l tablet 14:40: Oral, [place] 00 Daily, 0 Refill(s), supplement Axert 12.5 [...] migraines Seroquel Yes 100 mg, Memori a 12-28 Oral, l 14:40: Daily, 0 [place] 00 Refill(s), migraines acetaminoph Yes 1 tabs, [...] a 3- Oral, l 14:40: Daily, 0 Denis 00 [...] QUAD PF 2022-06-[address] 00:00:00 [facility] Bebtelovimab 2022-04-16 Completed [facility] FLUCELVAX QUAD PF 2021-07-26 Completed [...] hunt vaccine-unspecified< 00:00:00 sup>1</sup> Tdap 2019-06-28 Completed [facility] pneumococcal 2019-05-14 Completed [facility] [...] kg Systolic blood 2022-09-27 08:05:00 133 mm[Hg] [facility] Diastolic blood 2022-09-27 08:05:00 87 mm[Hg] [facility] Heart rate 2022-09-27 08:05:00 104 /min [facility] Body temperature 2022-09-27 08:05:00 35.56 Linda [facility] Respiratory rate 2022-09-27 08:05:00 20 /min [facility] Oxygen saturation in 2022-09-27 08:05:00 98 /min [facility] Arterial blood by Medical Ce nter Pulse oximetry Body weight 2022-09-25 11:28:00 98.2 kg [facility] BMI 2022-09-25 11:28:00 33.91 kg/m2 [facility] Body height 2022-09-23 16:00:00 170.2 cm [facility] Systolic blood 2022-08-27 21:24:34 114 mm[Hg] [facility] pressure Diastolic blood 2022-08-27 21:24:34 57 mm[Hg] [facility] pressure Heart rate 2022-08-27 21:24:34 87 /min [facility] Body temperature 2022-08-27 21:24:34 36.61 Linda [facility] Respiratory rate 2022-08-27 21:24:34 18 /min [facility] Oxygen saturation in 2022-08-27 21:24:34 100 /min [facility] Arterial blood by Pulse oximetry Body height 2022-08-27 05:00:00 170.2 cm [facility] Body weight 2022-08-27 05:00:00 107.2 kg [facility] BMI 2022-08-27 05:00:00 37.02 kg/m2 [facility] Temperature Oral (F) 2022-04-19 19:52:00 97.6 F [facility] Height 2022-04-19 19:52:00 170.18 cm [facility] Weight 2022-04-19 19:52:00 [facility] BMI Calculated 2022-04-19 19:52:00 [facility] Heart Rate 2021-10-17 21:23:00 [facility] Systolic (mm Hg) 2021-10-17 21:23:00 Turner rial [place] Diastolic (mm Hg) 2021-10-17 21:23:00 Mem orial Denis Height 2021-10-17 21:23:00 165.1 cm [facility] [place] Weight 2021-10-17 21:23:00 [facility] BMI Calculated 2021-10-17 21:23:00 Memori al [place] Heart Rate 2021-09-09 20:12:00 [facility] [place] Heart Rate 2021-09-09 20:08:00 [facility] Systolic (mm Hg) 2021-09-09 20:08:00 Turner rial Denis Diastolic (mm Hg) 2021-09-09 20:08:00 Mem orial [place] Height 2021-09-09 20:08:00 165.1 cm [facility] Weight 2021-09-09 20:08:00 [facility] BMI Calculated 2021-09-09 20:08:00 Memori al [place] Systolic (mm Hg) 2020-09-15 15:59:00 Turner rial [place] Diastolic (mm Hg) 2020-09-15 15:59:00 Mem orial [place] Heart Rate 2020-09-15 15:59:00 [facility] Height 2020-09-15 15:59:00 165.1 cm [facility] [place] Weight 2020-09-15 15:59:00 [facility] [place] BMI Calculated 2020-09-15 15:59:00 Memori al [place] Systolic (mm Hg) 2019-12-16 20:42:00 Turner rial [place] Diastolic (mm Hg) 2019-12-16 20:42:00 Mem orial Denis Heart Rate 2019-12-16 20:42:00 [facility] Temperature Oral (F) 2019-12-16 20:42:00 98.2 F [facility] Height 2019-12-16 20:42:00 170.18 cm [facility] Weight 2019-12-16 20:42:00 [facility] [place] BMI Calculated 2019-12-16 20:42:00 Memori al [place] Systolic (mm Hg) 2019-10-02 21:53:00 Turner rial [place] Diastolic (mm Hg) 2019-10-02 21:53:00 Mem orial [place] Heart Rate 2019-10-02 21:53:00 [facility] Temperature Oral (F) 2019-10-02 21:53:00 97.9 F [facility] Height 2019-10-02 21:53:00 165.1 cm [facility] Weight 2019-10-02 21:53:00 [facility] BMI Calculated 2019-10-02 21:53:00 Memori al [place] Height 2019-08-15 14:54:00 165.1 cm [facility] [place] Weight 2019-08-15 14:54:00 [facility] BMI Calculated 2019-08-15 14:54:00 Memori al [place] Systolic (mm Hg) 2019-08-15 14:54:00 Turner rial Denis Diastolic (mm Hg) 2019-08-15 14:54:00 Mem orial Denis Heart Rate 2019-08-15 14:54:00 [facility] Temperature Oral (F) 2019-08-15 14:54:00 97.6 F [facility] Systolic (mm Hg) 2019-07-31 15:37:00 Turner rial [place] Diastolic (mm Hg) 2019-07-31 15:37:00 Mem orial [place] Heart Rate 2019-07-31 15:37:00 [facility] [place] Temperature Oral (F) 2019-07-31 15:37:00 98.2 F [facility] Height 2019-07-31 15:37:00 165.1 cm [facility] Weight 2019-07-31 15:37:00 [facility] [place] BMI Calculated 2019-07-31 15:37:00 Memori al [place] Weight 2019-03-27 15:18:00 [facility] BMI Calculated 2019-03-27 15:18:00 Memori al [place] Height 2019-03-27 15:18:00 165.1 cm [facility] Temperature Oral (F) 2019-03-27 15:18:00 98.4 F [facility] [place] Heart Rate 2019-03-27 15:18:00 [facility] [place] Systolic (mm Hg) 2019-03-27 15:18:00 Turner rial Denis Diastolic (mm Hg) 2019-03-27 15:18:00 Mem orial [place] Height 2019-01-02 19:16:00 165.1 cm [facility] BMI Calculated 2019-01-02 19:16:00 Memori al [place] Weight 2019-01-02 19:16:00 [facility] Heart Rate 2019-01-02 19:16:00 [facility] Systolic (mm Hg) 2019-01-02 19:16:00 Turner rial Denis Diastolic (mm Hg) 2019-01-02 19:16:00 Mem orial [place] Height 2019-01-02 14:26:00 167.01 cm [facility] BMI Calculated 2019-01-02 14:26:00 Memori al [place] Weight 2019-01-02 14:26:00 [facility] Heart Rate 2019-01-02 14:26:00 [facility] [place] Temperature Oral (F) 2019-01-02 14:26:00 97.9 F [facility] [place] Systolic (mm Hg) 2019-01-02 14:26:00 Turner rial [place] Diastolic (mm Hg) 2019-01-02 14:26:00 Mem orial [place] Systolic (mm Hg) 2018-07-18 18:33:00 Turner rial [place] Diastolic (mm Hg) 2018-07-18 18:33:00 Mem orial [place] Heart Rate 2018-07-18 18:33:00 [facility] Weight 2018-07-18 18:33:00 [facility] BMI Calculated 2018-06-11 18:31:00 Memori al [place] Weight 2018-06-11 18:31:00 [facility] [place] Systolic (mm Hg) 2018-06-11 18:31:00 Turner rial Denis Diastolic (mm Hg) 2018-06-11 18:31:00 Mem orial [place] Height 2018-06-11 18:31:00 170.18 cm [facility] [place] Temperature Oral (F) 2018-06-11 18:31:00 98.3 F [facility] [place] Heart Rate 2018-06-11 18:31:00 [facility] [place] Weight 2018-01-10 16:14:00 [facility] [place] Height 2018-01-10 16:14:00 170.18 cm [facility] BMI Calculated 2018-01-10 16:14:00 Memori al Denis Heart Rate 2018-01-10 16:14:00 [facility] [place] Systolic (mm Hg) 2018-01-10 16:14:00 Turner rial [place] Diastolic (mm Hg) 2018-01-10 16:14:00 Mem orial [place] BMI Calculated 2018-01-09 15:06:00 Memori al Denis Height 2018-01-09 15:06:00 170.18 cm [facility] [place] Weight 2018-01-09 15:06:00 [facility] [place] Systolic (mm Hg) 2018-01-09 15:06:00 Turner rial Denis Diastolic (mm Hg) 2018-01-09 15:06:00 Mem orial [place] Heart Rate 2018-01-09 15:06:00 [facility] Temperature Oral (F) 2018-01-09 15:06:00 97.9 F [facility] [place] Weight 2016-11-14 16:17:00 [facility] [place] Height 2016-11-14 16:17:00 170.18 cm [facility] [place] BMI Calculated 2016-11-14 16:17:00 Memori al [place] Respitory Rate 2015-12-31 01:25:00 Memori al [place] Systolic (mm Hg) 2015-12-31 00:50:00 Turner rial Denis Respitory Rate 2015-12-31 00:50:00 Memori al Denis Heart Rate 2015-12-31 00:50:00 [facility] [place] Systolic (mm Hg) 2015-12-31 00:40:00 Turner rial Denis Respitory Rate 2015-12-31 00:40:00 Memori al Denis Heart Rate 2015-12-31 00:40:00 [facility] [place] Heart Rate 2015-12-31 00:30:00 [facility] [place] Systolic (mm Hg) 2015-12-31 00:30:00 Turner rial [place] Temperature Oral (F) 2015-12-30 23:50:00 37.1 Linda [facility] [place] Height 2015-12-30 19:23:00 169 cm [facility] [place] Weight 2015-12-30 19:23:00 [facility] [place] Temperature Oral (F) 2015-12-30 19:23:00 36.6 Linda [facility] Height 2015-12-29 14:13:00 170 cm [facility] [place] Weight 2015-12-29 14:13:00 [facility] Procedures Procedure Date / Time Performing Clinician Source Performed ULTRAFILTRATION HD CRRT 2022-09-26 18:40:00 Vee Coleman [facility] ECG 12-LEAD 2022-09-26 10:57:31 Unknown, Hl7 Doctor [facility] ECG 12-LEAD 2022-09-26 10:57:31 Unknown, Hl7 [facility] NM MYOCARDIAL PERFUSION 2022-09-26 10:55:00 Yaritza Reid [facility] PET/CT (REST & STRESS) Medical C enter TREADMILL 2022-09-26 10:49:30 Unknown, Hl7 [facility] TOLERANCE(NON-NUCLEAR Medical Ce nter TREADMILL) ECG 12-LEAD 2022-09-26 10:49:10 Unknown, Hl7 [facility] ECG 12-LEAD 2022-09-26 10:49:10 Unknown, Hl7 [facility] CBC W/PLT COUNT & AUTO 2022-09-26 03:40:00 Tejal [facility] BASIC METABOLIC PANEL 2022-09-26 03:40:00 Tejal [facility] MAGNESIUM 2022-09-26 03:40:00 Tejal [facility] PHOSPHORUS 2022-09-26 03:40:00 Tejal [facility] CBC W/PLT COUNT & AUTO 2022-09-26 03:40:00 Indio Cardozo [facility] HEPATITIS B SURFACE 2022-09-25 08:07:00 Harris Rutledge [facility] HEMODIALYSIS INPATIENT 2022-09-25 07:15:26 Ry Prajapati [facility] CBC W/PLT COUNT & AUTO 2022-09-25 04:40:00 Tejal [facility] BASIC METABOLIC PANEL 2022-09-25 04:40:00 Tejal [facility] MAGNESIUM 2022-09-25 04:40:00 Tejal [facility] PHOSPHORUS 2022-09-25 04:40[facility] 2022-09-25 04:40:00 Keith Mantilla CH I [facility] PERIPHERAL BLOOD SMEAR - 2022-09-25 04:40:00 Keith Mantilla a [facility] PATHOLOGIST REVIEW Medical Cente r CBC W/PLT COUNT & AUTO 2022-09-25 04:40:[address] [facility] 2D ECHO W/ DOPPLER 2022-09-24 15:49:57 Indio Cardozo [facility] (CW/PW/COLOR) [facility] CBC W/PLT COUNT & AUTO 2022-09-24 04:30:[address] [facility] CBC W/PLT COUNT & AUTO 2022-09-24 04:30:00 Tejal [facility] BASIC METABOLIC PANEL 2022-09-24 04:30:00 Tejal [facility] MAGNESIUM 2022-09-24 04:30:00 Tejal [facility] PHOSPHORUS 2022-09-24 04:30:00 Tejal [facility] PROTEIN ELECTROPHORESIS, 2022-09-24 04:30:00 Yaritza Reid [facility] HIGH SENSITIVITY TROPONIN 2022-09-23 18:09:[address] [facility] POTASSIUM 2022-09-23 18:09:00 Tejal [facility] XR CHEST 1 VIEW PORTABLE / 2022-09-23 15:31:[address] [facility] BEDSIDE [facility] CBC W/PLT COUNT & AUTO 2022-09-23 15:15:[address] [facility] COMPREHENSIVE METABOLIC 2022-09-23 15:15:[address] [facility] MAGNESIUM 2022-09-23 15:15:[address] [facility] PHOSPHORUS 2022-09-23 15:15:00 [facility] HIGH SENSITIVITY TROPONIN 2022-09-23 15:15:[address] [facility] B-TYPE NATRIURETIC FACTOR 2022-09-23 15:15:[address] [facility] (BNP) [facility] CBC W/PLT COUNT & AUTO 2022-09-23 15:15:00 CelliIndio [facility] TSH 2022-09-23 15:14:00 CelliIndio [facility] ECG 12-LEAD 2022-09-23 14:50:19 Unknown, Hl7 [facility] ECG 12-LEAD 2022-09-23 14:50:19 Unknown, Hl7 [facility] ECG 12-LEAD 2022-09-23 14:50:19 Unknown, Hl7 [facility] PROTHROMBIN TIME WITH INR 2022-08-27 06:57:00 Cy Sosa [facility] METABOLIC 2022-08-27 06:57:00 Cy Sosa [facility] PANEL MAGNESIUM LEVEL 2022-08-27 06:57:00 Cy Sosa spital PHOSPHORUS LEVEL 2022-08-27 06:57:00 Cy Sosa ospital ESTIMATED GFR 2022-08-27 06:57:00 Cy Sosa spital TROPONIN T 2022-08-27 06:57:00 Cy Sosa spital ZZCOVID-19 ANTI-SPIKE IGG 2022-08-27 06:56:00 Annabel Sosawvgabriele [facility] ANTIBODY TITER COVID-19 SEROLOGY PATIENT 2022-08-27 06:56:00 Cy Sosa [facility] SURVEILLANCE HC COMPLETE BLD COUNT 2022-08-27 06:56:[address] [facility] W/AUTO DIFF COVID-19 QUALITATIVE 2022-08-27 04:58:00 Francisco Dean [facility] RT-PCR TROPONIN T 2022-08-27 03:58:00 Cy Sosa spital XR CHEST 1 VW PORTABLE 2022-08-27 01:31:25 Francisco Dean [facility] METABOLIC 2022-08-27 01:20:00 Francisco Dean [facility] PANEL LIPASE LEVEL 2022-08-27 01:20:00 [facility] TROPONIN T 2022-08-27 01:20:00 Cy Sosa spital B NATRIURETIC PEPTIDE 2022-08-27 01:20:00 [facility] HC COMPLETE BLD COUNT 2022-08-27 01:20:00 [facility] W/AUTO DIFF ESTIMATED GFR 2022-08-27 01:20:00 [facility] ECG 12-LEAD 2022-08-27 01:03:45 Cy Sosa spital COMPREHENSIVE METABOLIC 2022-08-22 16:47:00 [facility] PANEL Herbert CBC WITH PLATELET AND 2022-08-22 16:47:00 [facility] DIFFERENTIAL Herbert THYROID STIMULATING 2022-08-22 16:47:00 [facility] HORMONE Herbert PARATHYROID HORMONE 2022-08-22 16:47:00 [facility] Herbert VITAMIN D 25 HYDROXY LEVEL 2022-08-22 16:47:00 [facility] Herbert NM BONE SCAN 3 PHASE 2022-07-26 18:11:00 [facility] Herbert BONE DENSITY 2022-07-26 14:02:48 [facility] Herbert BONE DENSITY PERIPHERAL 2022-07-26 14:02:48 [facility] Herbert POC GLUCOSE 2022-06-28 04:49:00 Maddison Wharton spital CBC HEMOGRAM 2022-06-27 10:05:00 Keith Lopez spital BASIC METABOLIC PANEL 2022-06-27 10:05:[address] [facility] ESTIMATED GFR 2022-06-27 10:05:00 [facility] XR LUMBAR SPINE 2 OR 3 VW 2022-06-26 21:10:24 JohnKeith [facility] XR THORACIC SPINE 2 VW 2022-06-26 21:10:08 Keith Lopez [facility] XR CHEST 1 VW PORTABLE 2022-06-26 19:05:29 Pily rod [facility] BASIC METABOLIC PANEL 2022-06-26 09:08:00 [facility] PHOSPHORUS LEVEL 2022-06-26 09:08:00 [facility] ESTIMATED GFR 2022-06-26 09:08:00 [facility] TTE COMPLETE, WO CONTRAST, 2022-06-25 15:40:[address] [facility] W DOPPLER ([id number]) MRI THORACIC SPINE WO 2022-06-25 02:11:31 Mary Ontiveros [facility] CONTRAST Herbert MRI LUMBAR SPINE WO 2022-06-25 01:29:36 Clifton Lantigua [facility] CONTRAST [facility] HEPATITIS B CORE ANTIBODY 2022-06-24 17:34:00 [facility] TOTAL HEPATITIS B SURFACE AB, 2022-06-24 17:34:00 [facility] QUANTITATIVE HEPATITIS B SURFACE 2022-06-24 17:34:00 [facility] ANTIGEN COVID-19 QUALITATIVE 2022-06-24 16:35:00 Clifton Lantigua [facility] RT-PCR [facility] COVID-19 OMICRON VARIANT 2022-06-24 16:35:00 Clifton Lantigua [facility] QUALITATIVE RT-PCR [facility] POC GLUCOSE 2022-06-24 16:35:00 Pily rod [facility] POC GLUCOSE 2022-06-24 15:09:00 Clifton Lantigua [facility] CT LUMBAR SPINE WO 2022-06-24 13:41:51 Clifton Lantigua [facility] CONTRAST [facility] CT RENAL STONE PROTOCOL 2022-06-24 13:41:[address] [facility] HC COMPLETE BLD COUNT 2022-06-24 12:44:00 Clifton Lantigua [facility] W/AUTO DIFF [facility] 2022-06-24 12:44:00 [facility] ESTIMATED GFR 2022-06-24 12:44:00 Clifton Lantigua [facility] [place] CRITICAL CARE, E/M 2022-06-24 12:28:33 Clifton Lantigua [facility] 30-74 MINUTES [facility] HEPATITIS B SURFACE 2022-05-20 15:33:[address] [facility] ANTIGEN [facility] HEPATITIS B SURFACE 2022-05-20 15:33:[address] [facility] ANTIBODY [facility] XR CHEST 1 VW PORTABLE 2022-04-29 13:25:18 Rajwinder Kay [facility] 2022-04-29 10:32:00 [facility] COMPLETE BLD COUNT 2022-04-29 10:32:00 Amos Pressley [facility] W/AUTO DIFF ESTIMATED GFR 2022-04-29 10:32:00 Amos Pressley [facility] HEMODIALYSIS 2022-04-29 05:06:40 Catalina Teran ospital [place] HEPATITIS B CORE ANTIBODY 2022-04-28 20:59:00 BarIra, [facility] TOTAL [facility] HEPATITIS B CORE ANTIBODY 2022-04-28 20:59:00 BarIra, [facility] IGM [place] HEPATITIS B SURFACE 2022-04-28 20:59:00 Jeffry [facility] ANTIGEN [place] HEPATITIS B SURFACE AB, 2022-04-28 20:58:00 Jeffry [facility] QUANTITATIVE [place] HEMODIALYSIS 2022-04-28 15:58:20 Catalina Teran H ospital [place] TROPONIN T 2022-04-28 15:44:00 Amos Pressley [facility] XR CHEST 1 VW PORTABLE 2022-04-28 11:41:07 [facility] TROPONIN T 2022-04-28 11:41:00 [facility] HC COMPLETE BLD COUNT 2022-04-28 11:41:00 [facility] W/AUTO DIFF COMPREHENSIVE METABOLIC 2022-04-28 11:41:00 [facility] PANEL PROTHROMBIN TIME WITH INR 2022-04-28 11:41:00 [facility] PARTIAL THROMBOPLASTIN 2022-04-28 11:41:00 [facility] TIME (PTT) B NATRIURETIC PEPTIDE 2022-04-28 11:41:00 [facility] PROCALCITONIN 2022-04-28 11:41:00 [facility] CREATINE KINASE, TOTAL 2022-04-28 11:41:00 [facility] (CPK) C-REACTIVE PROTEIN 2022-04-28 11:41:00 [facility] INTERLEUKIN 6 2022-04-28 11:41:00 [facility] FERRITIN LEVEL 2022-04-28 11:41:00 [facility] D-DIMER 2022-04-28 11:41:00 [facility] LDH 2022-04-28 11:41:00 [facility] FIBRINOGEN 2022-04-28 11:41:00 [facility] ESTIMATED GFR 2022-04-28 11:41:00 [facility] RESPIRATORY PATHOGEN PANEL 2022-04-28 09:45:00 Taylor Woodall [facility] WITH COVID-19 RT-PCR [facility] XR CHEST 1 VW 2022-04-28 08:05:46 Taylor Woodall ospital [facility] BLOOD CULTURE, AEROBIC & 2022-04-28 07:49:00 Taylor Woodall [facility] ANAEROBIC [facility] HC COMPLETE BLD COUNT 2022-04-28 07:49:00 [facility] DIFF [facility] COMPREHENSIVE METABOLIC 2022-04-28 07:49:00 Taylor Woodall [facility] PANEL [facility] TROPONIN T 2022-04-28 07:49:00 Amos Pressley [facility] B NATRIURETIC PEPTIDE 2022-04-28 07:49:00 Jose C [facility] ESTIMATED GFR 2022-04-28 07:49:00 Taylor Woodall osivan Laughlin ECG ED PRELIMINARY 2022-04-28 07:26:13 [facility] ECG 12-LEAD 2022-04-28 07:20:02 Taylor Woodall reema [facility] ABDOMEN PELVIS WO 2022-04-16 23:38:27 Cornelio [facility] CONTRAST HC COMPLETE BLD COUNT 2022-04-16 23:14:[address] [facility]/AUTO DIFF COMPREHENSIVE METABOLIC 2022-04-16 23:14:00 [facility] LIPASE LEVEL 2022-04-16 23:14:00 [facility] ESTIMATED GFR 2022-04-16 23:14:00 [facility] BASIC METABOLIC PANEL 2022-04-14 22:54:00 [facility] [place]arie ESTIMATED GFR 2022-04-14 22:54:00 [facility] POC GLUCOSE 2022-04-14 22:04:00 Puneet Lovelace [facility] CT ANGIOGRAM PE CHEST 2022-04-14 00:23:56 Fabiola Rashid [facility] IR VERTEBRO LUM UNI OR BALDO 2022-04-13 19:25:00 Jena Cool eliza [facility] ECG 12-LEAD 2022-04-13 18:05:39 Greg Snyder [facility] BASIC METABOLIC PANEL 2022-04-13 10:16:00 Puneet Lovelace [facility] HC COMPLETE BLD COUNT 2022-04-13 10:16:00 Puneet Lovelace [facility] W/AUTO DIFF PROTHROMBIN TIME WITH INR 2022-04-13 10:16:00 Puneet Lovelace [facility] ESTIMATED GFR 2022-04-13 10:16:00 Puneet Lovelace [facility] TYPE AND SCREEN 2022-04-13 10:16:00 Puneet Lovelace [facility] TROPONIN T 2022-04-13 02:33:00 Puneet Lovelace [facility] HEMODIALYSIS 2022-04-13 01:59:31 Baranonima-Daca[facility] [place] TTE COMPLETE, WO CONTRAST, 2022-04-13 00:15:00 Puneet Lovelace [facility] W DOPPLER ([id number]) TROPONIN T 2022-04-12 23:10:00 Puneet Lovelace [facility] TROPONIN T 2022-04-12 20:19:00 Puneet Lovelace [facility] HEMODIALYSIS 2022-04-11 13:51:20 Baranonima[facility]aca[facility] [place] HC COMPLETE BLD COUNT 2022-04-11 11:10:00 [facility] BASIC METABOLIC PANEL 2022-04-11 11:10:00 Jena Cool [facility] PARATHYROID HORMONE 2022-04-11 11:10:00 Jena Cool [facility] VITAMIN D 25 HYDROXY LEVEL 2022-04-11 11:10:[address] [facility] DIGOXIN LEVEL 2022-04-11 11:10:00 [facility] ospital [place] PHOSPHORUS LEVEL 2022-04-11 11:10:00 [facility], [facility] [place] ESTIMATED GFR 2022-04-11 11:10:00 [facility] HC COMPLETE BLD COUNT 2022-04-10 09:45:00 Travon [facility] W/AUTO DIFF BASIC METABOLIC PANEL 2022-04-10 09:45:00 Travon [facility] PROTHROMBIN TIME WITH INR 2022-04-10 09:45:00 Travon [facility] ESTIMATED GFR 2022-04-10 09:45:00 Travon [facility] GASTROINTESTINAL PANEL 2022-04-09 22:47:00 Ellie Crespo [facility] XR CHEST 1 VW PORTABLE 2022-04-09 17:34:26 Travon [facility] HC COMPLETE BLD COUNT 2022-04-09 10:01:00 Travon [facility] W/AUTO DIFF BASIC METABOLIC PANEL 2022-04-09 10:01:00 Travon [facility] ESTIMATED GFR 2022-04-09 10:01:00 Travon [facility] HEMODIALYSIS 2022-04-08 14:21:31 Catalina Teran H ospital [place] HC COMPLETE BLD COUNT 2022-04-08 10:11:00 Travon [facility] W/AUTO DIFF COMPREHENSIVE METABOLIC 2022-04-08 10:11:00 Travon [facility] PANEL ESTIMATED GFR 2022-04-08 10:11:00 Travon [facility] MRI LUMBAR SPINE WO 2022-04-08 02:13:34 Gutierrez Leal [facility] CONTRAST POTASSIUM LEVEL 2022-04-07 18:15:00 [facility]arie HEPATITIS B SURFACE 2022-04-07 13:46:00 Baranowskylee-Paris, [facility] ANTIGEN Valarie HEPATITIS B SURFACE 2022-04-07 13:46:00 Baranowska-Paris, [facility] ANTIBODY Valarie TROPONIN T 2022-04-07 13:43:00 Gutierrez Leal Ho spital HEMODIALYSIS 2022-04-07 13:16:08 Barjeremyka-Paris, [facility] HC COMPLETE BLD COUNT 2022-04-07 11:21:00 [facility] W/AUTO DIFF PROTHROMBIN TIME WITH INR 2022-04-07 11:21:00 [facility] COMPREHENSIVE METABOLIC 2022-04-07 11:21:00 [facility] PANEL THYROID STIMULATING 2022-04-07 11:21:00 [facility] HORMONE ESTIMATED GFR 2022-04-07 11:21:00 Gutierrez Leal spital ZZCOVID-19 ANTI-SPIKE IGG 2022-04-07 06:43:00 [facility] ANTIBODY TITER COVID-19 SEROLOGY PATIENT 2022-04-07 06:43:00 [facility] SURVEILLANCE TROPONIN T 2022-04-07 06:43:00 Gutierrez Leal spital PROCALCITONIN 2022-04-07 06:43:00 Gutierrez Leal spital URINE CULTURE 2022-04-07 05:18:00 Ellie Crespo spital COVID-19 QUALITATIVE 2022-04-07 04:41:00 [facility] URINALYSIS SCREEN AND 2022-04-07 04:41:00 [facility] MICROSCOPY, WITH REFLEX TO CULTURE CT ABDOMEN PELVIS WO 2022-04-07 03:51:11 [facility] LUMBAR SPINE WO 2022-04-07 03:49:20 Ellie Crespo [facility] CONTRAST COMPREHENSIVE METABOLIC 2022-04-07 03:31:00 Zak [facility] PANEL HC COMPLETE BLD COUNT 2022-04-07 03:31:00 Zak [facility] W/AUTO DIFF ESTIMATED GFR 2022-04-07 03:31:00 Ellie Crespo spital XR CHEST 1 VW 2022-04-07 03:22:49 Ellie Crespo spital ECG ED PRELIMINARY 2022-04-07 02:44:33 Zak [facility] INTERPRETATION ECG 12-LEAD 2022-04-07 02:40:03 Gutierrez Leal spital HEMODIALYSIS 2021-12-28 14:28:03 Barkristian-Paris, [facility] BASIC METABOLIC PANEL 2021-12-28 03:17:00 BarIra, [facility] Valarie ESTIMATED GFR 2021-12-28 03:17:00 Vinnie-[place], [facility] POC GLUCOSE 2021-12-28 02:29:00 [place], [facility] IR VERTEBRO CERVICAL AND 2021-12-27 20:19:56 NegraipMichelle elmore [facility] THOR UNI OR BALDO R IR VERTEBROPLASTY EA ADDL 2021-12-27 20:19:56 Brielle, [facility] T OR L R MN AN ELECTIVE 2021-12-27 19:47:00 Devonte Schuster [facility] ENDOTRACHEAL AIRWAY HEMODIALYSIS 2021-12-26 20:14:38 Jeffry, [facility] BLOOD CULTURE, AEROBIC & 2021-12-25 20:28:[address] [facility] ANAEROBIC URINE CULTURE 2021-12-24 23:56:00 Vinnie-Paris, [facility] CT RENAL STONE PROTOCOL 2021-12-24 23:39:33 Jeffry [facility] URINALYSIS SCREEN AND 2021-12-24 22:29:00 Jeffry, [facility] MICROSCOPY, WITH REFLEX TO Valarie CULTURE HEMODIALYSIS 2021-12-24 15:08:13 Jeffry, [facility] HC COMPLETE BLD COUNT 2021-12-23 09:55:00 [place] [facility] W/AUTO DIFF R BASIC METABOLIC PANEL 2021-12-23 09:55:00 [place] [facility] R PROTHROMBIN TIME WITH INR 2021-12-23 09:55:00 [place] [facility] R URIC ACID LEVEL 2021-12-23 09:55:00 Baranowska-Daca, [facility] DIGOXIN LEVEL 2021-12-23 09:55:00 [facility]ow[facility] CORTISOL LEVEL, AM 2021-12-23 09:55:00 Baranowska-Daca, [facility] HEMOGLOBIN A1C 2021-12-23 09:55:00 Baranowska-Daca, [facility] AMYLASE LEVEL 2021-12-23 09:55:00 Baranowska-Daca, [facility] ospital Valarie LIPASE LEVEL 2021-12-23 09:55:00 Baranowska-Daca, [facility] EST[facility] GFR 2021-12-23 09:55:00 Michelle Golden [facility] R VITAMIN D 25 HYDROXY LEVEL 2021-12-22 09:33:00 Vinnie-Peea, [facility] PARATHYROID HORMONE 2021-12-22 09:33:00 Barshaquillewskylee-Daca, [facility] PHOSPHORUS LEVEL 2021-12-22 09:33:00 Baranowska-Daca, [facility] XR SHOULDER 2+ VW RIGHT 2021-12-22 04:05:25 Barkristian-Paris, [facility] HEMODIALYSIS 2021-12-22 03:41:52 Vinnie-Paris, [facility] MRI LUMBAR SPINE WO 2021-12-21 15:10:25 Safia Scherer [facility] CONTRAST MRI THORACIC SPINE WO 2021-12-21 14:44:08 Safia Scherer [facility] CONTRAST BASIC METABOLIC PANEL 2021-12-21 10:43:00 Baranowska-Daca, [facility] ESTIMATED GFR 2021-12-21 10:43:00 Baranowska-Daca, [facility] BASIC METABOLIC PANEL 2021-12-20 22:26:00 Baranowska-Daca, [facility] ESTIMATED GFR 2021-12-20 22:26:00 [facility] HEMODIALYSIS 2021-12-20 14:03:25 [facility] HC COMPLETE BLD COUNT 2021-12-20 09:43:00 [facility] W/AUTO DIFF Tajdin COMPREHENSIVE METABOLIC 2021-12-20 09:43:00 [facility] PANEL Tain MAGNESIUM LEVEL 2021-12-20 09:43:00 [facility] Tajdin ESTIMATED GFR 2021-12-20 09:43:00 [facility] TROPONIN T 2021-12-20 00:24:00 Cornelio [facility] HEPATITIS B SURFACE 2021-12-20 00:24:00 Jeffry [facility] ANTIGEN Valarie HEPATITIS B SURFACE AB, 2021-12-20 00:24:00 Jeffry [facility] QUANTITATIVE Valarie HEMODIALYSIS 2021-12-19 22:22:37 Catalina [facility] Valarie THYROID STIMULATING 2021-12-19 21:32:00 GilmanAngy rosales [facility] HORMONE T4, FREE 2021-12-19 21:32:00 Angy Mccord Ho spital TROPONIN T 2021-12-19 21:32:00 Angy Mccord Ho spital COVID-19 QUALITATIVE 2021-12-19 21:22:00 Cornelio [facility] RT-PCR CT LUMBAR SPINE WO 2021-12-19 20:55:[facility]ACIC SPINE WO 2021-12-19 20:53:28 [facility] ANGIOGRAM PE CHEST 2021-12-19 20:45:21 Cornelio [facility] ECG 12-LEAD 2021-12-19 19:35:11 Cornelio [facility] XR THORACIC SPINE 2 VW 2021-12-19 19:17:36 Ray, [facility] HC COMPLETE BLD COUNT 2021-12-19 18:50:00 Ray, [facility] W/AUTO DIFF COMPREHENSIVE METABOLIC 2021-12-19 18:50:00 Ray, [facility] PANEL TROPONIN T 2021-12-19 18:50:00 Ray, [facility] ESTIMATED GFR 2021-12-19 18:50:00 Ray, [facility] LIPASE LEVEL 2021-12-19 18:50:00 Ray, [facility] ECG ED PRELIMINARY 2021-12-19 18:18:35 Ray, [facility] INTERPRETATION XR CHEST 2 VW 2021-11-14 16:02:54 Scott Flower [facility] ospital Diabetic retinal eye 2019-12-11 06:00:00 Jourdan Barrios exam<sup>1</sup> Mammogram 2017-05-05 05:00:00 [facility] hunt Colonoscopy<sup>2</sup> 2016-11-17 06:00:00 Turner Barrios OPEN REDUCTION INTERNAL 2015-12-30 22:13:00 Jose Francisco [facility] [place] FIXATION RADIUS INTRA-ARTICULAR W/3 FRAGMENTS 84247 (Right)<sup>1</sup> Repair of 2015-12-30 06:00:00 Aylin hunt wrist<sup>3</sup> skin cancer removed from 2011-10-22 00:00:00 Mem orial [place] arm [facility] Procedure<sup>2</sup> [facility] ermann Tubal ligation [facility] Eye operation [facility] [place] Biopsy of breast [facility] bilateral [facility] kerototomy bilateral tubal ligation Jourdan valle Denis colon[facility] Skin cancer of [facility] arm<sup>4</sup> Plan of Care Planned Activity Planned Date Details Comments Source Future Scheduled 2029-06-28 DTAP/TDAP/TD VACCINES [facility] 00:00[facility]00 (2 - Td or Tdap) [code Medic al Center = DTAP/TDAP/TD VACCINES (2 - Td or Tdap)] Future Scheduled 2029-06-28 DTAP/TDAP/TD VACCINES [facility] 00:00:00 (2 - Td or Tdap) [code Medic al Center = DTAP/TDAP/TD VACCINES (2 - Td or Tdap)] Future Scheduled 2022-09-01 HEPATITIS B VACCINES Met [facility] Test 11:07:43 (1 of 3 - 3-dose series) [code = HEPATITIS B VACCINES (1 of 3 - 3-dose series)] Future Scheduled 2022-09-01 COVID-19 VACCINE (#1) [facility] Test 11:07:43 [code = COVID-19 VACCINE (#1)] Future Scheduled 2022-09-01 65+ PNEUMOCOCCAL [facility] Test 11:07:43 VACCINE (1 - PCV) [code = 65+ PNEUMOCOCCAL VACCINE (1 - PCV)] Future Scheduled 2022-09-01 SHINGLES VACCINES ([address] [facility] Test 11:07:43 of 2) [code = SHINGLES VACCINES (1 of 2)] Future Scheduled 2022-09-01 Screening for [facility] Test 11:07:43 malignant neoplasm of cervix (procedure) [code = 630732734] Future Scheduled 2022-09-01 COLONOSCOPY SCREENING [facility] Test 11:07:43 [code = COLONOSCOPY SCREENING] Future Scheduled 2022-09-01 BREAST CANCER [facility] Test 11:07:43 SCREENING [code = BREAST CANCER SCREENING] Future Scheduled 2022-08-[address] [facility] 00:00:00 WELLNESS (YEAR 2 or Medical Center FIRST YEAR if no IPPE) [code = MEDICARE ANNUAL WELLNESS (YEAR 2 or FIRST YEAR if no IPPE)] Future Scheduled 2022-08-[address] [...] RISK Medical C enter SCREENING] Future Scheduled 2021-10-[address] [...] 65+ YRS (1 - PCV)] Future Scheduled 2021 PNEUMOCOCCAL 65+ YRS [facility] Test 00:00:00 (1 - PCV) [code = Medical Ce nter PNEUMOCOCCAL 65+ YRS (1 - PCV)] Future Scheduled 2006 SHINGLES VACCINES ([address] [facility] Test 00:00:00 of 2) [code = SHINGLES Medic al Center VACCINES (1 of 2)] Future Scheduled 2006 SHINGLES VACCINES ([address] [facility] Test 00:00:00 of 2) [code = SHINGLES Medic al Center VACCINES (1 of 2)] Future Scheduled [address] [facility] Test 00:00:00 Counseling and Medical Cente r Screening (12+) [code = Tobacco Cessation Counseling and Screening (12+)] Future Scheduled [address] [facility] Test 00:00:00 Counseling and Medical Cente r Screening (12+) [code = Tobacco Cessation Counseling and Screening (12+)] Future Scheduled 1957-03-03 COVID-19 VACCINE (#1) [facility] 00:00:00 [code = COVID-[address] VACCINE (#1)] Future Scheduled 1957-03-03 COVID-19 VACCINE (#1) [facility] 00:00:00 [code = COVID-[address] VACCINE (#1)] Future Scheduled [address] [facility] 00:00:00 malignant neoplasm of Medica l Center breast (procedure) [code = 856274315] Future Scheduled [address] [facility] 00:00:00 (combo) [code = CT Medical C enter Colonography (combo)] Future Scheduled [address] [facility] [facility] Test 00:00:00 malignant neoplasm of Medica l Center colon (procedure) [code = 201958311] Future Scheduled [address] [facility] [facility] Test 00:00:00 malignant neoplasm of Medica l Center colon (procedure) [code = 570396157] Future Scheduled 1956 DXA SCAN [code = DXA [facility] Test 00:00:00 SCAN] [facility] Future Scheduled [address] [facility] Test 00:00:00 malignant neoplasm of Medica l Center colon (procedure) [code = 874027078] Future Scheduled [address] [facility] [facility] Test 00:00:00 malignant neoplasm of Medica l Center colon (procedure) [code = 561753132] Future Scheduled 1956 Sigmoidoscopy [code = [facility] Sigmoidoscopy] Medical [facility] r Future Scheduled [address] [facility] Test 00:00:00 malignant neoplasm of Medica l Center breast (procedure) [code = 028687857] Future Scheduled [address] [facility] 00:00:00 (combo) [code = CT Medical C enter Colonography (combo)] Future Scheduled [address] [facility] [facility] Test 00:00:00 malignant neoplasm of Medica l Center colon (procedure) [code = 103823047] Future Scheduled [address] [facility] [facility] Test 00:00:00 malignant neoplasm of Medica l Center colon (procedure) [code = 453889096] Future Scheduled 1956 DXA SCAN [code = DXA [facility] Test 00:00:00 SCAN] [facility] Future Scheduled [address] [facility] Test 00:00:00 malignant neoplasm of Medica l Center colon (procedure) [code = 303930795] Future Scheduled [address] [facility] [facility] Test 00:00:00 malignant neoplasm of Medica l Center colon (procedure) [code = 273750528] Future Scheduled 1956 Sigmoidoscopy [facility]code = [facility] Sigmoidoscopy] Medical [facility] r Encounters Start End Encounter Admission Attending Care Care Encounter Source Date/Time Date/Time Type Type Clinicians Facility Department ID 2022-03-13 Inpatient EDDIE Adams ENDO [id number] [facility] 09:[facility]:[address] 2022-09-23 2022-09-27 [facility] [id number] [facility] 14:20:00 12:50:00 Encounter Keith Mantilla Kitjazmin Weber Tejal, [facility] 2022-09-23 2022-09-27 Inpatient [facility] Cardiology 20 [id number] SLE 14:20:00 12:50:00 TRE 2022-09-23 2022-09-27 [facility] [id number] [facility] 14:20[facility] 12:50:00 Encounter Keith Mantilla guillerm[facility] 2022-09-26 2022-09-[address] [facility] [id number] 00:00:00 00:00:00 [facility] 2022-09-26 2022-09-[address] [facility] [id number] 00:00:00 00:00:00 [facility] 2022-09-23 2022-09-23 Outpatient [place] BC [id number] [facility] 00:00:00 23:59:00 Geeta 2022-09-23 2022-09-[address] [facility] [id number] 00:00:00 00:00:00 [facility] 2022-09-23 2022-09-[address] [facility] [id number] 00:00:00 00:00:00 [facility] 2022-08-26 2022-08-[address]1 [id number] Agency 00:00:00 00:00:00 Encounter KORINA 57785.1.1 [address] .3.046985 .8 2022-08-26 2022-08-26 Travel 1.2.840.1 1.2.069.235 5705 [id number] Methodi 00:00:00 00:00:[address] 3.430.2.7 0.2.7.3.698 Ho spita .3.756733 084.8 l .8 2022-08-22 2022-08-22 [facility], 1.2.840.1 [id number] Methodi 00:00:00 00:00:00 Only Mary 59163.1.[address] [place] 3.430.2.7 Hosp naye .3.320623 l .8 2022-08-11 2022-08-11 [facility], 1.2.840.1 [id number] Methodi 12:00:00 12:15:00 Visit Mary 05603.1.[address] [place] 3.430.2.7 Hosp naye .3.622930 l .8 2022-08-11 2022-08-11 Travel 1.2.840.1 1.2.332.655 3415 [id number] Methodi 00:00:00 00:00:[address] 3.430.2.7 0.2.7.3.698 Ho spita .3.844971 084.8 l .8 2022-08-02 2022-08-02 Travel 1.2.840.1 1.2.178.020 5913 [id number] Methodi 00:00:00 00:00:[address] 3.430.2.7 0.2.7.3.698 Ho spita .3.992134 084.8 l .8 2022-07-26 2022-07-26 [facility], 1.2.840.1 [id number] Agency 00:00:00 00:00:00 Encounter MARY 75605.1.1 [address]7 [address] .3.931959 .8 2022-07-26 2022-07-26 [facility], 1.2.840.1 [id number] Agency 00:00:00 00:00:00 Encounter MARY 16298.1.1 [address] .3.985268 .8 2022-07-26 2022-07-26 Hospital [facility], 1.2.840.1 [id number] Agency 00:00:00 00:00:00 Encounter MARY 67305.1.[address] .3.445511 .8 2022-07-26 2022-07-26 Travel 1.2.840.1 1.2.095.259 4376 [id number] Methodi 00:00:00 00:00:[address] 3.430.2.7 0.2.7.3.698 Ho spita .3.764190 084.8 l .8 2022-07-11 2022-07-11 Office Bam, 1.2.840.1 [id number] Methodi 14:15:00 14:15:00 Visit Mary 11090.1.[address] 3.430.2.7 Hospit a .3.141953 l .8 2022-07-11 2022-07-11 Travel 1.2.840.1 1.2.688.021 7301 728102 Methodi 00:00:00 00:00:[address] 3.430.2.7 0.2.7.3.698 Ho spita .3.016115 084.8 l .8 2022-07-04 2022-07-04 Office [place], 1.2.840.1 [id number] Methodi 12:45:00 13:22:26 Visit Mary 00775.1.[address] [place] 3.430.2.7 Hosp naye .3.841845 l .8 2022-07-03 2022-07-03 Travel 1.2.840.1 1.2.162.441 4521 [id number] Methodi 00:00:00 00:00:[address] 3.430.2.7 0.2.7.3.698 Ho spita .3.942884 084.8 l .8 2022-06-24 2022-06-28 [facility] 1.2.840.1 [id number] Methodi 07:21:00 20:54:00 Encounter Maddison Wharton 28080.1.[address] 3.430.2.7 Hospit a .3.914823 l .8 2022-06-27 2022-06-27 Prep for Nehemiah, 1.2.840.1 [id number] Methodi 00:00:00 00:00:00 Surgery Taylor Gaviria 81463.1.1 [address] 3.430.2.7 Hospit a .3.049732 l .8 2022-06-24 2022-06-24 Travel 1.2.840.1 1.2.886.668 5143 [id number] Methodi 00:00:00 00:00:[address] 3.430.2.7 0.2.7.3.698 Ho spita .3.399778 084.8 l .8 2022-06-14 2022-06-14 Outpatient LEONEL Conteh OUTD [id number] [facility] 04:58:00 04:58:00 Quentin 89 [facility] 2022-06-07 2022-06-07 Outpatient LEONEL Conteh OUTD [id number] [facility] 06:37:00 06:37:00 Quentin 64 [facility] 2022-05-20 2022-05-20 [facility] [id number] 00:00[facility]00 00:00:00 [facility] 2022-05-20 2022-05-20 [facility] [id number] 00:00:00 00:00:00 [facility] 2022-05-04 2022-05-04 Outpatient [facility] [id number] Agency 00:00:00 00:00:00 [address] [facility] 2022-04-28 2022-04-29 Emergency Taylor Woodall 1.2.840 .1 [id number] Methodi 02:04:00 18:01:[address] [facility] 3.430.2.7 [facility]ospita [facility], [place] .3.075987 l .8 2022-04-28 2022-04-28 Travel 1.2.840.1 1.2.977.342 1301 [id number] Methodi 00:00:00 00:00:[address] 3.430.2.7 0.2.7.3.698 Ho spita .3.603878 084.8 l .8 2022-04-19 2022-04-20 Outpatient nullFlavo [facility] 3 [id number] Memoria 21:20:00 04:59:59 r Medicine 56 l Carrillo Zhang n 2022-04-19 2022-04-20 Outpatient nullFlavo [facility] 3 [id number] Memoria 21:20:00 04:59:59 r Medicine 56 l Carrillo Zhang n 2022-04-19 2022-04-19 Outpatient Rodriguez, [facility] MG [id number] 16:20:00 23:59:59 Antonella N 56 2022-04-19 2022-04-19 Outpatient MHIE MHIE [id number] Memoria 16:20:00 16:20:00 56 l Denis 2022-04-16 2022-04-16 Emergency Avis, 1.2.840.1 [id number] Methodi 17:10:00 22:30:[address] [place] 3.430.2.7 Hosp naye .3.281655 l .8 2022-04-16 2022-04-16 Travel 1.2.840.1 1.2.949.110 6684 [id number] Methodi 00:00:00 00:00:[address] 3.430.2.7 0.2.7.3.698 Ho spita .3.696664 084.8 l .8 2022-04-06 2022-04-15 Hospital Travon Porras . 1.2.840.1 [id number] Methodi 21:20:00 13:07:00 Encounter Gutierrez Leal 75151.1.[address] Jena Coolyan 3.430.2.7 Hospita Puneet Lovelace .3.409236 l .8 2022-04-13 2022-04-13 Anesthesia Snyder, 1.2.840.1 [id number] Methodi 13:41:00 14:30:00 Event Greg 54166.1.[address] Pauline 3.430.2.7 Hospit a .3.023985 l .8 2022-04-06 2022-04-06 Travel 1.2.840.1 1.2.958.895 0130 [id number] Methodi 00:00:00 00:00:[address] 3.430.2.7 0.2.7.3.698 Ho spita .3.494061 084.8 l .8 2022-03-08 2022-03-08 Outpatient Mic Warren HCAPM DAYS 0 [id number] [facility] 07:07:00 07:07:00 79 [facility] 2022-03-08 2022-03-08 Outpatient Mic Warren [facility] HCAPM F94 [id number] [facility] 07:07:00 07:07:00 [facility] 2022-03-06 2022-03-08 Phone [facility] Mqkewt [id number] Memoria 15:25:04 04:59:59 Message r Medicine 17 l Carrillo davis 2022-03-06 2022-03-08 Phone nullFlavo [facility] [id number] Memoria 15:25:04 04:59:59 Message r Medicine 17 l Carrillo Zhang n 2022-03-06 2022-03-07 Outpatient MHMG MHMG [id number] 10:25:04 23:59:59 17 2022-03-03 2022-03-03 Emergency EM Chris Carter HCAPM POLLO LA00 [id number] [facility] 12:08:00 15:51:00 00 [facility] 2022-03-03 2022-03-03 Emergency EM Chris Carter HCAPM HCAPM [id number] [facility] 12:08:00 15:51:00 [facility] 2022-02-27 2022-02-27 Outpatient HARJEET King HCAPM ENDO [id number] [facility] 07:10:00 07:10:00 Adam 92 [facility] 2022-01-18 2022-01-18 Ambulatory nullFlavo [facility] 3 [id number] Memoria 15:15:00 15:15:00 Pre-Reg r Medicine 54 l Carrillo Zhang n 2022-01-18 2022-01-18 Ambulatory nullFlavo [facility] 3 [id number] Memoria 15:15:00 15:15:00 Pre-Reg r Medicine 55 l Carrillo Zhang n 2022-01-18 2022-01-18 Outpatient MHIE MHIE [id number] Memoria 10:15:00 10:15:00 55 leonard Barrios 2022-01-18 2022-01-18 Outpatient Rodriugez, MHMG MHMG [id number] 10:15:00 10:15:00 Antonella Davis 55 2022-01-16 2022-01-16 Outpatient MHIE MHIE [id number] Memoria 10:30:00 10:30:00 56 leonard Barrios 2022-01-16 2022-01-16 Outpatient MHIE MHIE [id number] Memoria 10:30:00 10:30:00 56 leonard Barrios 2022-01-05 2022-01-05 Patient Phuong Mcginnis 1.2.840.1 [id number] Methodi 00:00:00 00:00:[address] 3.430.2.7 Hospit a .3.142689 l .8 2021-12-30 2021-12-30 Office Ekandrews, 1.2.840.1 [id number] Methodi 10:15:00 11:21:59 Visit Mary 25780.1.[address] 3.430.2.7 Hospit a .3.467686 l .8 2021-12-30 2021-12-30 Travel 1.2.840.1 1.2.232.530 3741 [id number] Methodi 00:00:00 00:00:[address] 3.430.2.7 0.2.7.3.698 Ho spita .3.514133 084.8 l .8 2021-12-19 2021-12-28 [facility] 1.2.840.1 1 [id number] Methodi 12:16:00 16:05:00 Encounter BrielleMichelle blackburn 11028.1.[address] 3.430.2.7 Hospit a .3.364887 l .8 2021-12-27 2021-12-27 Anesthesia Robert Young 1.2.8 40.1 [id number] Methodi 13:07:00 14:43:00 Event Nishi Shelton 47580.1.[address] 3.430.2.7 Hospit a .3.082915 l .8 2021-12-26 2021-12-26 Telephone Bam, 1.2.840.1 [id number] [id number] Methodi 00:00:00 00:00:[address] 3.430.2.7 Hospit a .3.398596 l .8 2021-12-19 2021-12-21 Phone nullFlavo [facility] [id number] Memoria 17:07:02 05:59:59 Message r Medicine 16 l Carrillo davis 2021-12-19 2021-12-21 Phone nullFlavo [facility] 346Mariana [id number] Memoria 17:07:02 05:59:59 Message r Medicine 16 l Carrillo Zhang n 2021-12-19 2021-12-20 Outpatient [facility] [id number] 11:07:02 23:59:59 16 2021-12-19 2021-12-19 Travel 1.2.840.1 1.2.429.930 5134 [id number] Methodi 00:00:00 00:00:[address] 3.430.2.7 0.2.7.3.698 Ho spita .3.970566 084.8 l .8 2021-11-15 2021-11-15 [facility] 1.2.840.1 [id number] Methodi 16:30:00 16:34:07 Visit Scott 85461.1.[address] 3.430.2.7 Hospit a .3.499739 l .8 2021-11-14 2021-11-14 [facility] 1.2.840.1 [id number] Methodi 09:45:00 23:59:00 Encounter Scott 78799.1.[address] 3.430.2.7 Hospit a .3.293311 l .8 2021-11-14 2021-11-14 Travel 1.2.840.1 1.2.490.976 8477 095007 Methodi 00:00:00 00:00:[address] 3.430.2.7 0.2.7.3.698 Ho spita .3.276825 084.8 l .8 2021-10-28 2021-10-30 Phone nullFlavo [facility] [id number] Memoria 19:33:53 05:59:59 Message r Medicine 15 l Carrillo Zhang ryan 2021-10-28 2021-10-30 Phone nullFlavo [facility] [id number] Memoria 19:33:53 05:59:59 Message r Medicine 15 l Carrillo Zhang n 2021-10-28 2021-10-29 Outpatient [facility] [id number] 13:33:53 23:59:59 15 2021-10-19 2021-10-21 Phone nullFlavo [facility] [id number] Memoria 19:38:03 05:59:59 Message r Medicine 14 leonard Zhang n 2021-10-19 2021-10-21 Phone nullFlavo [facility] [id number] Memoria 19:38:03 05:59:59 Message r Medicine 14 l Carrillo Zhang n 2021-10-19 2021-10-20 Outpatient [facility] [id number] 13:38:03 23:59:59 14 2021-10-17 2021-10-18 Outpatient nullFlavo [facility] 3 [id number] Memoria 21:15:00 05:59:59 r Medicine 53 l Carrillo Zhang n 2021-10-17 2021-10-18 Outpatient nullFlavo [facility] 3 [id number] Memoria 21:15:00 05:59:59 r Medicine 53 l Carrillo Zhang n 2021-10-17 2021-10-17 Outpatient Rodriguez, [facility]MG [facility] [id number] 15:15:00 23:59:59 Antonella Davis 53 2021-10-17 2021-10-17 Outpatient MHIE MHIE [id number] Memoria 15:15:00 15:15:00 54 leonard Denis 2021-09-20 2021-09-20 Office Ahmed, 1.2.840.1 [id number] Methodi 15:30:00 16:01:04 Visit Scott [address]1541.1.[address] 3.430.2.7 Hospit a .3.366820 l .8 2021-09-20 2021-09-20 Travel 1.2.840.1 1.2.410.636 0923 [id number] Methodi 00:00:00 00:00:[address] 3.430.2.7 0.2.7.3.698 Ho spita .3.452614 084.8 l .8 2021-09-12 2021-09-13 Between nullFlavo [facility] [id number] Memoria 14:18:24 14:18:24 Visit r Medicine 62 leonard davis 2021-09-12 2021-09-13 Between nullFlavo [facility] [id number] Memoria 14:18:24 14:18:24 Visit r Medicine 62 l Carrillo davis 2021-09-12 2021-09-13 Outpatient MHMG MG [id number] 08:18:24 08:18:24 62 2021-09-12 2021-09-13 Between nullFlavo [facility] [id number] Memoria 00:56:47 00:56:47 Visit r Medicine 61 leonard davis 2021-09-12 2021-09-13 Between nullFlavo [facility] [id number] Memoria 00:56:47 00:56:47 Visit r Medicine 61 leonard davis 2021-09-11 2021-09-12 Outpatient MHMG MG [id number] 18:56:47 18:56:47 61 2021-09-09 2021-09-10 Outpatient nullFlavo [facility] 3 [id number] Memoria 20:00:00 05:59:59 r Medicine 52 leonard davis 2021-09-09 2021-09-10 Outpatient nullFlavo [facility] 3 [id number] Memoria 20:00:00 05:59:59 r Medicine 52 leonard davis 2021-09-09 2021-09-09 Outpatient Rodriguez, [facility]MG MG [id number] 14:00:00 23:59:59 Antonella Davis 52 2021-09-09 2021-09-09 Outpatient MHIE IE [id number] Memoria 14:00:00 14:00:00 52 leonard Barrios 2021-09-06 2021-09-08 Phone nullFlavo [facility] [id number] Memoria 21:38:38 05:59:59 Message r Medicine 13 leonard davis 2021-09-06 2021-09-08 Phone nullFlavo [facility] 3467 [id number] Memoria 21:38:38 05:59:59 Message r Medicine 13 leonard davis 2021-09-06 2021-09-07 Outpatient [facility] [id number] 15:38:38 23:59:59 13 2021-09-07 2021-09-07 Office Bam, 1.2.840.1 [id number] Methodi 11:00:00 11:44:58 Visit Mary 59520.1.[address] 3.430.2.7 Hospit a .3.657869 l .8 2021-09-07 2021-09-07 Travel 1.2.840.1 1.2.252.177 0074 [id number] Methodi 00:00:00 00:00:[address] 3.430.2.7 0.2.7.3.698 Ho spita .3.867329 084.8 l .8 2021-09-05 2021-09-06 Between nullFlavo [facility] 3467 [id number] Memoria 15:33:59 15:33:59 Visit r Medicine 59 l Carrillo Zhang n 2021-09-05 2021-09-06 Between nullFlavo [facility] 3467 [id number] Memoria 15:33:59 15:33:59 Visit r Medicine 59 l Carrillo davis 2021-09-05 2021-09-06 Outpatient [facility] [id number] 09:33:59 09:33:59 59 2021-07-14 2021-07-26 Inpatient NEGRASOFININOSKA, [facility] [id number] Agency 00:00:00 00:00:00 MICHELLE [address] 2021-07-19 2021-07-19 Outpatient GC_EAH_Brow PRIV PRIV [id number] Privia 00:00:00 00:00:00 n_J [id number] Medica l 2021-07-13 2021-07-13 Outpatient MARITA, [facility] [id number] Agency 00:00:00 00:00:00 KRISTIAN [address] 2021-06-30 2021-06-30 Outpatient ADRIANA, [facility] [id number] Agency 00:00:00 00:00:00 RAZIUDDIN [address] 2021-06-07 2021-06-07 Outpatient EKERUO, [facility] [id number] Agency 00:00:00 00:00:00 MARY 787 Method i 2021-06-07 2021-06-07 Outpatient DAOURA, [facility] [id number] Agency 00:00:00 00:00:00 NILESH 546 Method i 2021-05-19 2021-05-26 Inpatient RADHAIVANAN, [facility] [id number] Agency 00:00:00 00:00:00 COURTNEY 275 Method i 2021-05-12 2021-05-12 Outpatient AHMED, [facility] [id number] Agency 00:00:00 00:00:00 RAZIUDDIN 199 Meth aiden 2021-05-11 2021-05-11 Outpatient EKERUO, [facility] [id number] Agency 00:00:00 00:00:00 MARY 640 Method i 2021-05-06 2021-05-06 Outpatient EKERUO, [facility] [id number] Agency 00:00:00 00:00:00 MARY 435 Method i 2021-05-06 2021-05-06 Outpatient EKERUO, [facility] [id number] Agency 00:00:00 00:00:00 MARY 537 Method i 2021-05-03 2021-05-03 Outpatient EKERUO, [facility] [id number] Agency 00:00:00 00:00:00 MARY 709 Method i 2021-04-08 2021-04-21 Inpatient SOLIPURAM, [facility] [id number] Agency 00:00:00 00:00:00 MICHELLE 685 Method i 2021-03-09 2021-03-09 Outpatient AHMED, [facility] [id number] Agency 00:00:00 00:00:00 RAZIUDDIN 101 [facility] aiden 2021-02-24 2021-02-24 Outpatient [facility] [id number] Memoria 01:00:00 04:59:00 r [place] 58 l Eaton Karen 2021-02-24 2021-02-24 Outpatient [facility]Fl[facility] [id number] Memoria 01:00:00 04:59:00 r Denis 58 l [place] Karen 2021-02-23 2021-02-23 Outpatient Ahmed, MHSL MHSL [id number] 20:00:00 23:59:00 Raziuddin 58 2021-02-23 2021-02-23 Outpatient AHMED, MHFB PUL [id number] MHFB 20:00:00 23:59:00 RAZIUDDIN 2021-02-10 2021-02-10 Outpatient AHMED, [facility] [id number] Agency 00:00:00 00:00:[address] RAZ[address]IN [address] 2021-02-03 2021-02-08 Inpatient MARY ALICE, [facility] [id number] Agency 00:00:00 00:00:00 COURTNEY [address] 2021-01-20 2021-01-20 Outpatient [facility] [id number] Agency 00:00:00 00:00:[address] 2021-01-18 2021-01-19 Outpatient nullFlavo [facility] 3 [id number] Memoria 19:30:00 04:59:59 r Medicine 51 l Carrillo davis 2021-01-18 2021-01-19 Outpatient nullFlavo [facility] 3 [id number] Memoria 19:30:00 04:59:59 r Medicine 51 l Carrillo davis 2021-01-18 2021-01-18 Outpatient Rodriguez, MG MG [id number] 14:30:00 23:59:59 Antonella Davis 51 2021-01-18 2021-01-18 Outpatient MHIE IE [id number] Memoria 14:30:00 14:30:00 51 leonard Barrios 2021-01-18 2021-01-18 Outpatient [facility] [id number] [place] [address] 00:00:00 00:00:[address] 2021-01-14 2021-01-15 Between nullFlavo [facility] [id number] Memoria 13:38:03 13:38:03 Visit r Medicine 57 leonard davis 2021-01-14 2021-01-15 Between nullFlavo [facility] [id number] Memoria 13:38:03 13:38:03 Visit r Medicine 57 leonard davis 2021-01-14 2021-01-15 Outpatient MHMG MG [id number] 08:38:03 08:38:03 57 2021-01-12 2021-01-12 Outpatient ADRIANA [facility] [id number] Agency 00:00:00 00:00:00 RAZIUDDIN [address] 2020-12-31 2021-01-05 Inpatient MARY ALICE [facility] [id number] Agency 00:00:00 00:00:00 COURTNEY 541 Method i 2020-12-17 2020-12-28 Inpatient MARY ALICE [facility] Vidya [id number] Agency 00:00:00 00:00:00 COURTNEY 559 Method i 2020-10-11 2020-10-18 Inpatient MARY ALICE [facility] [id number] Agency 00:00:00 00:00:00 COURTNEY [address] 2020-09-15 2020-09-16 Outpatient nullFlavo [facility] 3 [id number] Memoria 16:30:00 05:59:59 r Medicine 50 l Carrillo Zhang n 2020-09-15 2020-09-16 Outpatient nullFlavo [facility] 3 [id number] Memoria 16:30:00 05:59:59 r Medicine 50 l Carrillo Zhang n 2020-09-15 2020-09-15 Outpatient Rodriguez, MG MG [id number] 10:30:00 23:59:59 Antonella Davis 50 2020-09-15 2020-09-15 Outpatient MHIE IE [id number] Memoria 10:30:00 10:30:00 50 l Denis 2020 2020-09-07 Inpatient SOLIPURAM, [facility] [id number] Agency 00:00:00 00:00:00 MICHELLE [address] 2020-08-13 2020-09-01 Inpatient SOLKARLA, [facility] [id number] Agency 00:00:00 00:00:00 MICHELLE [address] 2020-08-13 2020-08-14 Outpt Diag nullFlavo [facility] [id number] Memoria 18:10:00 04:59:00 Services r Outpatient 06 l Imaging [place] 2020-08-13 2020-08-14 Outpt Diag nullFlavo [facility] [id number] Memoria 18:10:00 04:59:00 Services r Outpatient 06 l Imaging [place] 2020-08-13 2020-08-13 Outpatient Amilcar MH29 MH29 [id number] 13:10:00 23:59:00 Tyrell Davis 06 2020-08-11 2020-08-12 Between nullFlavo [facility] [id number] Memoria 17:58:19 17:58:19 Visit r Medicine 56 l Carrillo Zhang n 2020-08-11 2020-08-12 Between nullFlavo [facility] [id number] Memoria 17:58:19 17:58:19 Visit r Medicine 56 l Carrillo Zhang n 2020-08-11 2020-08-12 Outpatient MHMG [facility] [id number] 12:58:19 12:58:19 56 2020-08-03 2020-08-04 Outpatient nullFlavo [facility] 3 [id number] Memoria 15:15:00 04:59:59 r Medicine 49 l Carrillo Zhang n 2020-08-03 2020-08-04 Outpatient nullFlavo [facility] 3 [id number] Memoria 15:15:00 04:59:59 r Medicine 49 l Carrillo Zhang n 2020-08-03 2020-08-03 Outpatient Rodriguez, MHMG [facility] [id number] 10:15:00 23:59:59 Antonella Davis 49 2020-08-03 2020-08-03 Outpatient MHIE [facility] [id number] Memoria 10:15:00 10:15:00 49 l Denis 2020-06-22 2020-06-23 Outpt Diag nullFlavo [facility] [id number] Memoria 17:02:00 04:59:00 Services r Outpatient 05 l Imaging [place] 2020-06-22 2020-06-23 Outpt Diag nullFlavo [facility] [id number] Memoria 17:02:00 04:59:00 Services r Outpatient 05 l Imaging [place] 2020-06-22 2020-06-22 Outpatient Amilcar MH29 [id number] 12:02:00 23:59:00 Tyrell Davis 05 2020-06-17 2020-06-17 Ambulatory nullFlavo [facility] [id number] Memoria 19:00:00 19:00:00 Pre-Reg r Nephrology 46 l Carrillo davis 2020-06-17 2020-06-17 Ambulatory nullFlavo [facility] [id number] Memoria 19:00:00 19:00:00 Pre-Reg r Nephrology 46 l Carrillo davis 2020-06-17 2020-06-17 Outpatient MHIE IE [id number] Memoria 14:00:00 14:00:00 [place] 2020-06-17 2020-06-17 Outpatient [facility] [id number] 14:00:00 14:00:00 Daca, 46 Valarie J 2020-06-10 2020-06-10 Outpatient MHIE IE [id number] Memoria 11:15:00 11:15:00 47 leonard Denis 2020-06-10 2020-06-10 Outpatient MHIE IE [id number] Memoria 11:15:00 11:15:00 47 leonard Denis 2020-06-02 2020-06-03 Outpatient nullFlavo [facility] [id number] Memoria 19:45:00 04:59:59 r Nephrology 48 l Carrillo davis 2020-06-02 2020-06-03 Outpatient nullFlavo [facility] [id number] Memoria 19:45:00 04:59:59 r Nephrology 48 l Carrillo davis 2020-06-02 2020-06-02 [id number] 14:45:00 23:59:59 Daca, 48 Valarie J 2020-06-02 2020-06-02 Outpatient IE IE [id number] Memoria 14:45:00 14:45:00 48 leonard Denis 2020-05-20 2020-05-20 Outpatient [facility], [facility] [id number] Agency 00:00:00 00:00:00 FABIOLA [address] 2020-03-23 2020-03-25 Phone nullFlavo MG [id number] Memoria 16:17:50 04:59:59 Message r Nephrology 12 leonard Zhang ryan 2020-03-23 2020-03-25 Phone nullFlavo MG [id number] Memoria 16:17:50 04:59:59 Message r Nephrology 12 leonard Zhang ryan 2020-03-23 2020-03-24 Outpatient MHMG MG [id number] 11:17:50 23:59:59 12 2020-03-18 2020-03-19 [place] [id number] Memoria 19:00:00 04:59:59 r Nephrology 41 l Carrillo Zhang ryan 2020-03-18 2020-03-19 [place] [id number] Memoria 19:00:00 04:59:59 r Nephrology 41 l Carrillo Zhang ryan 2020-03-18 2020-03-18 Outpatient Baranowska- MHMG [facility]MG [id number] 14:00:00 23:59:59 Daca, 41 Valarie J 2020-03-18 2020-03-18 Outpatient MHIE IE [id number] Memoria 14:00:00 14:00:00 41 leonard Barrios 2020-03-08 2020-03-10 Phone nullFlavo MG [id number] Memoria 18:35:51 04:59:59 Message r Nephrology 11 leonard Watson [place] 2020-03-08 2020-03-10 Phone nullFlavo MG [id number] Memoria 18:35:51 04:59:59 Message r Nephrology 11 leonard Barrios 2020-03-08 2020-03-09 Outpatient MHMG MG [id number] 13:35:51 23:59:59 11 2020-02-11 2020-02-12 Outpatient nullFlavo [facility] 3 [id number] Memoria 15:15:00 04:59:59 r Medicine 45 l Carrillo Zhang ryan 2020-02-11 2020-02-12 Outpatient nullFlavo [facility] 3 [id number] Memoria 15:15:00 04:59:59 r Medicine 45 l Carrillo Zhang ryan 2020-02-11 2020-02-11 Outpatient Rodriguez, MHMG MG [id number] 10:15:00 23:59:59 Antonella Davis 45 2020-02-11 2020-02-11 Ambulatory nullFlavo [facility] 3 [id number] Memoria 15:15:00 15:15:00 Pre-Reg r Medicine 44 l Carrillo Zhang ryan 2020-02-11 2020-02-11 Ambulatory nullFlavo [facility] 3 [id number] Memoria 15:15:00 15:15:00 Pre-Reg r Medicine 44 l Carrillo Zhang n 2020-02-11 2020-02-11 Outpatient MHIE IE [id number] Memoria 10:15:00 10:15:00 45 leonard Denis 2020-02-11 2020-02-11 Outpatient MHIE MHIE [id number] Memoria 10:15:00 10:15:00 44 leonard Denis 2020-02-11 2020-02-11 Outpatient Rodriguez, MG MG [id number] 10:15:00 10:15:00 Antonella N 44 2020-02-05 2020-02-07 Phone nullFlavo MG [id number] Memoria 13:23:32 04:59:59 Message r Nephrology 10 leonard Zhang ryan 2020-02-05 2020-02-07 Phone nullFlavo MG [id number] Memoria 13:23:32 04:59:59 Message r Nephrology 10 leonard Vizcaino Vicente davis 2020-02-05 2020-02-06 Outpatient MG MG [id number] 08:23:32 23:59:59 10 2020-02-05 2020-02-06 Between nullFlavo [facility] [id number] Memoria 14:14:54 14:14:54 Visit r Medicine 52 l Carrillo Zhang ryan 2020-02-05 2020-02-06 Between nullFlavo [facility] [id number] Memoria 14:14:54 14:14:54 Visit r Medicine 52 l Carrillo Rameycora davis 2020-02-05 2020-02-06 Outpatient MG MG [id number] 09:14:54 09:14:54 52 2020-02-05 2020-02-05 Outpatient MHIE IE [id number] Memoria 11:30:00 11:30:00 43 leonard Denis 2020-02-05 2020-02-05 Outpatient MHIE IE [id number] Memoria 11:30:00 11:30:00 43 leonard Barrios 2020-02-02 2020-02-04 Phone nullFlavo [facility] [id number] Memoria 20:00:15 04:59:59 Message r Medicine 09 l Carrillo Vicente davis 2020-02-02 2020-02-04 Phone nullFlavo [facility] [id number] Memoria 20:00:15 04:59:59 Message r Medicine 09 leonard davis 2020-02-02 2020-02-03 Outpatient MHMG MHMG [id number] 15:00:15 23:59:59 09 2020-01-30 2020-02-01 Phone nullFlavo [facility] [id number] Memoria 17:18:28 04:59:59 Message r Medicine 08 leonard Zhang ryan 2020-01-30 2020-02-01 Phone nullFlavo [facility] 3467 [id number] Memoria 17:18:28 04:59:59 Message r Medicine 08 leonard Zhang n 2020-01-30 2020-02-01 Phone nullFlavo MG [id number] Memoria 13:26:55 04:59:59 Message r Nephrology 07 leonard Zhang ryan 2020-01-30 2020-02-01 Phone nullFlavo MG [id number] Memoria 13:26:55 04:59:59 Message r Nephrology 07 leonard Zhang ryan 2020-01-30 2020-01-31 Outpatient MHMG MG [id number] 12:18:28 23:59:59 08 2020-01-30 2020-01-31 Outpatient MHMG MHMG [id number] 08:26:55 23:59:59 07 2019-12-16 2019-12-17 Outpatient nullFlavo [facility] 3 [id number] Memoria 20:15:00 05:59:59 r Medicine 42 leonard Zhang ryan 2019-12-16 2019-12-17 Outpatient nullFlavo [facility] 3 [id number] Memoria 20:15:00 05:59:59 r Medicine 42 l Carrillo Zhang ryan 2019-12-16 2019-12-16 Outpatient Rodriguez, MHMG MG [id number] 14:15:00 23:59:59 Antonella N 42 2019-12-16 2019-12-16 Outpatient MHIE MHIE [id number] Memoria 14:15:00 14:15:00 Satinder Barrios 2019-11-13 2019-11-15 Phone nullFlavo [facility] [id number] Memoria 14:22:27 05:59:59 Message r Medicine 06 leonard Zhang ryan 2019-11-13 2019-11-15 Phone nullFlavo [facility] [id number] Memoria 14:22:27 05:59:59 Message r Medicine 06 leonard Zhang n 2019-11-13 2019-11-14 Outpatient MHMG [facility] [id number] 08:22:27 23:59:59 06 2019-10-17 2019-10-19 Phone nullFlavo [facility] [id number] Memoria 16:06:04 05:59:59 Message r Medicine 05 leonard davis 2019-10-17 2019-10-19 Phone nullFlavo [facility] [id number] Memoria 16:06:04 05:59:59 Message r Medicine 05 leonard Zhang n 2019-10-17 2019-10-18 Outpatient MG MG [id number] 10:06:04 23:59:59 05 2019-10-02 2019-10-03 Between nullFlavo MG [id number] Memoria 20:05:03 20:05:03 Visit r Nephrology 45 leonard Watson [place] 2019-10-02 2019-10-03 Between nullFlavo MG [id number] Memoria 20:05:03 20:05:03 Visit r Nephrology 45 leonard Barrios 2019-10-02 2019-10-03 Outpatient MHMG MG [id number] 14:05:03 14:05:03 45 2019-10-02 2019-10-03 [place] [id number] Memoria 20:45:00 05:59:59 r Nephrology 38 leonard Zhang ryan 2019-10-02 2019-10-03 [place] [id number] Memoria 20:45:00 05:59:59 r Nephrology 38 l Carrillo Zhang ryan 2019-10-02 2019-10-02 Outpatient [place]- MG MG [id number] 14:45:00 23:59:59 Peea, 38 Valarie Carballo 2019-10-02 2019-10-02 Outpatient MHIE [facility] [id number] Memoria 14:45:00 14:45:00 38 leonard Barrios 2019-09-26 2019-09-27 Between nullFlavo MG [id number] Memoria 00:07:10 00:07:10 Visit r Nephrology 43 leonard Barrios 2019-09-26 2019-09-27 Between nullFlavo MG [id number] Memoria 00:07:10 00:07:10 Visit r Nephrology 43 leonard Barrios 2019-09-25 2019-09-26 [facility] [id number] 18:07:10 18:07:10 43 2019-09-25 2019-09-25 Outpatient IE IE [id number] Memoria 09:00:00 09:00:00 39 leonard Barrios 2019-09-25 2019-09-25 Outpatient IE IE [id number] Memoria 09:00:00 09:00:00 39 leonard Denis 2019-09-16 2019-09-17 Between nullFlavo [facility] [id number] Memoria 21:47:12 21:47:12 Visit r Medicine 41 leonard Rameycora davis 2019-09-16 2019-09-17 Between nullFlavo [facility] [id number] Memoria 21:47:12 21:47:12 Visit r Medicine 41 leonard Vizcaino Vicente davis 2019-09-16 2019-09-17 Outpatient [facility] [id number] 15:47:12 15:47:12 41 2019-08-19 2019-08-20 Between nullFlavo [facility] [id number] Memoria 22:13:13 22:13:13 Visit r Medicine 40 leonard Zhang ryan 2019-08-19 2019-08-20 Between nullFlavo [facility] [id number] Memoria 22:13:13 22:13:13 Visit r Medicine 40 leonard Vizcaino Vicente davis 2019-08-19 2019-08-20 Outpatient [facility] [id number] 17:13:13 17:13:13 40 2019-08-15 2019-08-16 Outpatient nullFlavo [facility] 3 [id number] Memoria 14:45:00 04:59:59 r Medicine 40 leonard Rameycora davis 2019-08-15 2019-08-16 Outpatient nullFlavo [facility] 3 [id number] Memoria 14:45:00 04:59:59 r Medicine 40 leonard Zhang n 2019-08-15 2019-08-15 Outpatient Rodriguez, MG [facility] [id number] 09:45:00 23:59:59 Antonella Davis 40 2019-08-15 2019-08-15 Outpatient MHIE MHIE [id number] Memoria 09:45:00 09:45:00 40 leonard Denis 2019-08-07 2019-08-07 Ambulatory nullFlavo [facility] 3 [id number] Memoria 16:00:00 16:00:00 Pre-Reg r Medicine 36 leonard Zhang n 2019-08-07 2019-08-07 Ambulatory nullFlavo [facility] 3 [id number] Memoria 16:00:00 16:00:00 Pre-Reg r Medicine 36 leonard Zhang n 2019-08-07 2019-08-07 Outpatient MHIE MHIE [id number] Memoria 11:00:00 11:00:00 36 leonard Denis 2019-08-07 2019-08-07 Outpatient Rodriguez, MHMG MG [id number] 11:00:00 11:00:00 Antonella N 36 2019-07-31 2019-08-01 [place] [id number] Memoria 15:00:00 04:59:59 r Nephrology 35 leonard Zhang n 2019-07-31 2019-08-01 [place] [id number] Memoria 15:00:00 04:59:59 r Nephrology 35 leonard Zhang n 2019-07-31 2019-07-31 Outpatient Rodriguez, MHMG MG [id number] 10:00:00 23:59:59 Antonella N 35 2019-07-31 2019-07-31 Outpatient MHIE MHIE [id number] Memoria 12:00:00 12:00:00 37 leonard Denis 2019-07-31 2019-07-31 Outpatient MHIE MHIE [id number] Memoria 12:00:00 12:00:00 37 loenard Denis 2019-07-31 2019-07-31 Outpatient MHIE MHIE [id number] Memoria 10:00:00 10:00:00 35 leonard Denis 2019-07-03 2019-07-05 Phone nullFlavo [facility] [id number] Memoria 15:15:06 04:59:59 Message r Medicine 04 leonard Zhang n 2019-07-03 2019-07-05 Phone nullFlavo [facility] [id number] Memoria 15:15:06 04:59:59 Message r Medicine 04 leonard davis 2019-07-03 2019-07-05 Phone nullFlavo MHMG [id number] Memoria 15:10:51 04:59:59 Message r Nephrology 03 leonard davis 2019-07-03 2019-07-05 Phone nullFlavo MHMG [id number] Memoria 15:10:51 04:59:59 Message r Nephrology 03 leonard davis 2019-07-03 2019-07-04 Outpatient MHMG MHMG [id number] 10:15:06 23:59:59 04 2019-07-03 2019-07-04 Outpatient MHMG MG [id number] 10:10:51 23:59:59 03 2019-07-03 2019-07-03 [place] [id number] Memoria 20:00:00 20:00:00 Pre-Reg r Nephrology 34 leonard davis 2019-07-03 2019-07-03 [place] [id number] Memoria 20:00:00 20:00:00 Pre-Reg r Nephrology 34 leonard dvais 2019-07-03 2019-07-03 Outpatient IE IE [id number] Memoria 15:00:00 15:00:00 34 leonard Barrios 2019-07-03 2019-07-03 Outpatient [place]- MG MG [id number] 15:00:00 15:00:00 [place], Angela Valarie Carballo 2019-06-29 2019-06-30 Between nullFlavo MG [id number] Memoria 20:15:16 20:15:16 Visit r Nephrology 34 leonard Barrios 2019-06-29 2019-06-30 Between nullFlavo [facility]MG [id number] Memoria 20:15:16 20:15:16 Visit r Nephrology 34 leonard Barrios 2019-06-29 2019-06-30 Outpatient MHMG MHMG [id number] 15:15:16 15:15:16 34 2019-06-11 2019-06-13 Phone nullFlavo MHMG [id number] Memoria 15:29:54 04:59:59 Message r Nephrology 02 leonard Barrios 2019-06-11 2019-06-13 Phone nullFlavo MHMG [id number] Memoria 15:29:54 04:59:59 Message r Nephrology 02 leonard Barrios 2019-06-11 2019-06-12 Outpatient MHMG MG [id number] 10:29:54 23:59:59 02 2019-06-12 2019-06-12 [place] [id number] Memoria 16:30:00 16:30:00 Pre-Reg r Nephrology 29 leonard davis 2019-06-12 2019-06-12 [place] [id number] Memoria 16:30:00 16:30:00 Pre-Reg r Nephrology 29 leonard davis 2019-06-12 2019-06-12 [place] [id number] Memoria 16:15:00 16:15:00 Pre-Reg r Nephrology 30 leonard davis 2019-06-12 2019-06-12 [place] [id number] Memoria 16:15:00 16:15:00 Pre-Reg r Nephrology 30 leonard davis 2019-06-12 2019-06-12 Ambulatory [facility]Fl[facility] 3 [id number] [facility] 15:15:00 15:15:00 Pre-Reg r Medicine 31 leonard davis 2019-06-12 2019-06-12 Ambulatory [facility] 3 [id number] [facility] 15:15:00 15:15:00 Pre-Reg r Medicine 31 leonard davis 2019-06-12 2019-06-12 Outpatient MHIE ADRIANIE [id number] [facility] 11:30:00 11:30:00 30 leonard Denis 2019-06-12 2019-06-12 Outpatient [facility] MG [id number] 11:30:00 11:30:00 Otis [place] 2019-06-12 2019-06-12 Outpatient MHIE MHIE [id number] [facility] 11:15:00 11:15:00 31 leonard Denis 2019-06-12 2019-06-12 Outpatient [place]- [facility] MG [id number] 11:15:00 11:15:00 Bob [place] 2019-06-12 2019-06-12 Outpatient MHIE MHIE [id number] [facility] 10:15:00 10:15:00 32 leonard [place] 2019-06-12 2019-06-12 Outpatient Rodriguez, MG MG [id number] 10:15:00 10:15:00 Antonella Davis 32 2019-06-09 2019-06-10 Inpatient [facility] TELE [id number] [place] 10:05:00 17:55:[address] [facility] 2019-05-12 2019-05-14 Outpatient Chelsea [facility] TELE [id number] [place] 21:36:00 19:00:[address] [facility] 2019-05-12 2019-05-13 Outpatient nullFlavo [facility] Urgent [id number] Memoria 20:40:00 04:59:59 r Care 33 leonard [place] 2019-05-12 2019-05-13 Outpatient nullFlavo [facility] Urgent [id number] Mem[facility] 20:40:00 04:59:59 r Care 33 leonard [place] 2019-05-12 2019-05-12 Outpatient Van MG MG [id number] 15:40:00 23:59:59 Radha Gallardo Carlito chavezt 2019-05-12 2019-05-12 Outpatient MHIE IE [id number] [facility] 15:40:00 15:40:00 34 leonard [place] 2019-03-27 2019-03-28 Outpatient nullFlavo [facility] Family 3 [id number] [facility] 15:15:00 04:59:59 r Medicine 32 l [place] 2019-03-27 2019-03-28 Outpatient nullFlavo [facility] Family 3 [id number] [facility] 15:15:00 04:59:59 r Medicine 32 l [place] 2019-03-27 2019-03-27 Outpatient [place]- [facility] [id number] 10:15:00 23:59:59 Philly Tol[place] 2019-03-27 2019-03-27 Outpatient MHIE MHIE [id number] Memoria 10:15:00 10:15:00 32 leonard Barrios 2019-01-05 2019-01-06 Between nullFlavo MG Family [id number] Memoria 19:00:16 19:00:16 Visit r Medicine 29 leonard Zhang n 2019-01-05 2019-01-06 Between nullFlavo MG Family [id number] Memoria 19:00:16 19:00:16 Visit r Medicine 29 leonard Zhang n 2019-01-05 2019-01-06 Outpatient MG MG [id number] 14:00:16 14:00:16 29 2019-01-02 2019-01-03 Between nullFlavo MG [id number] Memoria 15:02:37 15:02:37 Visit r Nephrology 27 leonard davis 2019-01-02 2019-01-03 Between nullFlavo MG [id number] Memoria 15:02:37 15:02:37 Visit r Nephrology 27 leonard davis 2019-01-02 2019-01-03 Outpatient MG MG [id number] 10:02:37 10:02:37 27 2019-01-02 2019-01-03 [place] [id number] Memoria 18:45:00 04:59:59 r Nephrology 28 leonard davis 2019-01-02 2019-01-03 [place] [id number] Memoria 18:45:00 04:59:59 r Nephrology 28 leonard davis 2019-01-02 2019-01-03 Outpatient nullFlavo MG Family 3 [id number] Memoria 14:15:00 04:59:59 r Medicine 22 leonard davis 2019-01-02 2019-01-03 Outpatient nullFlavo MG Family 3 [id number] Memoria 14:15:00 04:59:59 r Medicine 22 leonard Zhang n 2019-01-02 2019-01-02 Outpatient Barshaquillewska- MG MG [id number] 13:45:00 23:59:59 Reynold [place] 2019-01-02 2019-01-02 Outpatient Rodriguez, MG MG [id number] 09:15:00 23:59:59 Antonella Davis 22 2019-01-02 2019-01-02 Outpatient MHIE MHIE [id number] Memoria 13:45:00 13:45:00 Reynold Barrios 2019-01-02 2019-01-02 Outpatient MHIE MHIE [id number] Memoria 09:15:00 09:15:00 22 leonard Denis 2018-12-31 2019-01-01 Between nullFlavo MG [id number] Memoria 23:59:47 23:59:47 Visit r Nephrology 26 leonard Zhang ryan 2018-12-31 2019-01-01 Between nullFlavo MG [id number] Memoria 23:59:47 23:59:47 Visit r Nephrology 26 leonard Vizcaino Vicente davis 2018-12-31 2019-01-01 Outpatient [facility] [id number] 18:59:47 18:59:47 26 2018-12-27 2018-12-28 Between nullFlavo MG [id number] Memoria 22:00:33 22:00:33 Visit r Nephrology 24 leonard Vizcaino Vicente davis 2018-12-27 2018-12-28 Between nullFlavo MG [id number] Memoria 22:00:33 22:00:33 Visit r Nephrology 24 leonard Vizciano Vicente davis 2018-12-27 2018-12-28 Outpatient [facility] [id number] 16:00:33 16:00:33 24 2018-12-27 2018-12-28 Between nullFlavo MG [id number] Memoria 04:48:44 04:48:44 Visit r Nephrology 23 leonard Vizcaino Vicente davis 2018-12-27 2018-12-28 Between nullFlavo MG [id number] Memoria 04:48:44 04:48:44 Visit r Nephrology 23 leonard PostVizcaino Vicente davis 2018-12-26 2018-12-27 Outpatient [facility] [id number] 22:48:44 22:48:44 23 2018-11-14 2018-11-14 [place] [id number] Memoria 20:30:00 20:30:00 Pre-Reg r Nephrology 27 leonard Vizcaino Vicente davis 2018-11-14 2018-11-14 [place] [id number] Memoria 20:30:00 20:30:00 Pre-Reg r Nephrology 27 leonard PostVizcaino Vicente davis 2018-11-14 2018-11-14 [place] [id number] Memoria 18:40:00 18:40:00 Pre-Reg r Nephrology 24 leonard davis 2018-11-14 2018-11-14 [place] [id number] Memoria 18:40:00 18:40:00 Pre-Reg r Nephrology 24 leonard davis 2018-11-14 2018-11-14 Outpatient MHIE MHIE [id number] Memoria 14:30:00 14:30:00 27 leonard Denis 2018-11-14 2018-11-14 Outpatient [place]- MG MG [id number] 14:30:00 14:30:00 PeeCordell pizarro 2018-11-14 2018-11-14 Outpatient [place]- MG MG [id number] 14:30:00 14:30:00 [place]ordell Valarie Haris 2018-11-14 2018-11-14 Outpatient MHIE IE [id number] Memoria 12:40:00 12:40:00 24 [place]ard [place] 2018-11-14 2018-11-14 Outpatient [place]- MG MG [id number] 12:40:00 12:40:00 PeeYesi pizarro Haris 2018-11-14 2018-11-14 Outpatient [place]- MG MG [id number] 12:40:00 12:40:00 [place] Yesi Valarie Haris 2018-11-07 2018-11-07 [place] [id number] Memoria 15:30:00 15:30:00 [facility] 2018-11-07 2018-11-07 [place] [id number] Memoria 15:30:00 15:30:00 [facility] 2018-11-07 2018-11-07 Outpatient MHIE MHIE [id number] Memoria 09:30:00 09:30:00 25 leonard Barrios 2018-11-07 2018-11-07 Outpatient MG MG [id number] 09:30:00 09:30:00 25 2018-07-11 2018-08-10 [place] [id number] Memoria 12:45:00 12:45:00 [facility]Reg [facility] 2018-07-11 2018-08-10 Ambulatory nullFlavo MHMG [id number] Memoria 12:45:00 12:45:00 Pre-Reg r Internal 23 leonard Narayan Vizcaino 2018-07-11 2018-08-10 Outpatient MG MG [id number] 07:45:00 07:45:00 23 2018-07-18 2018-07-19 [place] [id number] Memoria 19:15:00 04:59:59 r Nephrology 26 leonard Zhang ryan 2018-07-18 2018-07-19 [place] [id number] Memoria 19:15:00 04:59:59 r Nephrology 26 leonard Zhang ryan 2018-07-18 2018-07-19 [place] [id number] Memoria 18:00:00 04:59:59 r Nephrology 21 leonard Zhang ryan 2018-07-18 2018-07-19 [place] [id number] Memoria 18:00:00 04:59:59 r Nephrology 21 leonard Zhang ryan 2018-07-18 2018-07-18 Outpatient [facility] [id number] 14:15:00 23:59:59 Daca, 26 Valarie J 2018-07-18 2018-07-18 Outpatient [facility] [id number] 13:00:00 23:59:59 Daca, 21 Valarie J 2018-07-18 2018-07-18 [id number] Memoria 14:15:00 14:15:00 26 leonard Denis 2018-07-18 2018-07-18 Outpatient IE IE [id number] Memoria 13:00:00 13:00:00 21 leonard Denis 2018-07-11 2018-07-11 Outpatient MHIE IE [id number] Memoria 07:45:00 07:45:00 23 leonard Denis 2018-06-11 2018-06-12 Outpatient nullFlavo MG Family 3 [id number] Memoria 18:30:00 04:59:59 r Medicine 20 leonard Zhang ryan 2018-06-11 2018-06-12 Outpatient nullFlavo MG Family 3 [id number] Memoria 18:30:00 04:59:59 r Medicine 20 leonard Zhang n 2018-06-11 2018-06-11 Outpatient Rodriguez, MHMG MHMG [id number] 13:30:00 23:59:59 Antonella N 20 2018-06-11 2018-06-11 Outpatient MHIE MHIE [id number] Memoria 13:30:00 13:30:00 20 leonard Denis 2018-01-10 2018-01-11 Outpatient nullFlavo MHMG [id number] Memoria 16:00:00 04:59:59 r Nephrology 19 leonard Zhang n 2018-01-10 2018-01-11 Outpatient nullFlavo MHMG [id number] Memoria 16:00:00 04:59:59 r Nephrology 19 leonard davis 2018-01-10 2018-01-10 Outpatient [place]- MG MG [id number] 11:00:00 23:59:59 Daca, Ludivina Valarie Haris 2018-01-10 2018-01-10 Outpatient [place]- MG MG [id number] 11:00:00 23:59:59 Daca, 19 Valarie Haris 2018-01-10 2018-01-10 Outpatient MHIE MHIE [id number] Memoria 11:00:00 11:00:00 19 leonard Denis 2018-01-09 2018-01-10 Outpatient nullFlavo MHMG Family 3 [id number] Memoria 15:00:00 04:59:59 r Medicine 18 leonard Zhang n 2018-01-09 2018-01-10 Outpatient nullFlavo MHMG Family 3 [id number] Memoria 15:00:00 04:59:59 r Medicine 18 leonard Zhang n 2018-01-09 2018-01-09 Outpatient Rodriguez, MHMG MHMG [id number] 10:00:00 23:59:59 Antonella N 18 2018-01-09 2018-01-09 Outpatient Rodriguez, MHMG MHMG [id number] 10:00:00 23:59:59 Antonella N 18 2018-01-09 2018-01-09 Outpatient MHIE MHIE [id number] Memoria 10:00:00 10:00:00 18 leonard Denis 2017-07-19 2017-07-19 Outpatient MHIE MHIE [id number] Memoria 10:40:00 10:40:00 16 leonard Denis 2017-07-19 2017-07-19 Outpatient MHIE MHIE [id number] Memoria 10:40:00 10:40:00 16 leonard Denis 2017-06-27 2017-06-27 Outpatient MHIE MHIE [id number] Memoria 11:30:00 11:30:00 17 leonard Barrios 2017-06-27 2017-06-27 Outpatient MHIE MHIE [id number] Memoria 11:30:00 11:30:00 17 leonard Denis 2017-03-01 2017-03-01 Outpatient MHIE MHIE [id number] Memoria 11:40:00 11:40:00 11 leonard Denis 2017-03-01 2017-03-01 Outpatient MHIE MHIE [id number] Memoria 11:40:00 11:40:00 11 leonard Barrios 2016-12-26 2016-12-26 Outpatient MHIE MHIE [id number] Memoria 14:30:00 14:30:00 15 leonard Barrios 2016-12-26 2016-12-26 Outpatient MHIE MHIE [id number] Memoria 14:30:00 14:30:00 15 leonard Denis 2016-11-27 2016-11-27 Outpatient MHIE MHIE [id number] Memoria 10:00:00 10:00:00 08 leonard Barrios 2016-11-27 2016-11-27 Outpatient MHIE MHIE [id number] Memoria 10:00:00 10:00:00 08 leonard Barrios 2016-11-17 2016-11-17 Bedded nullFlavo [facility] [id number] Memoria 11:48:35 14:30:00 Outpatient connie Barrios 13 l [place] Karen nn 2016-11-17 2016-11-17 Bedded [facility]Flavo [facility] [id number] Memoria 11:48:35 14:30:00 Outpatient connie Barrios 13 l [place] Karen 2016-11-17 2016-11-17 Outpatient ADRIAN SmithSLeonard MHSL [id number] 05:48:35 08:30:00 Reinaldo Ware 2016-11-09 2016-11-09 Outpatient MHIE MHIE [id number] Memoria 13:15:00 13:15:00 14 leonard Barrios 2016-11-09 2016-11-09 Outpatient MHIE IE [id number] Memoria 13:15:00 13:15:00 14 leonard Denis 2016-10-18 2016-10-18 Outpatient MHIE MHIE [id number] Memoria 09:30:00 09:30:00 12 leonard RameyDenis 2016-10-18 2016-10-18 Outpatient MHIE MHIE [id number] Memoria 09:30:00 09:30:00 13 leonard Denis 2016-10-18 2016-10-18 Outpatient MHIE MHIE [id number] Memoria 09:30:00 09:30:00 12 leonard RameyDenis 2016-10-18 2016-10-18 Outpatient MHIE MHIE [id number] Memoria 09:30:00 09:30:00 13 leonard Denis 2016-10-12 2016-10-12 Outpatient MHIE MHIE [id number] Memoria 10:20:00 10:20:00 09 leonard Denis 2016-10-12 2016-10-12 Outpatient MHIE MHIE [id number] Memoria 10:20:00 10:20:00 09 leonard Denis 2016-07-13 2016-07-13 Outpatient MHIE MHIE [id number] Memoria 13:00:00 13:00:00 04 leonard Denis 2016-07-13 2016-07-13 Outpatient MHIE MHIE [id number] Memoria 13:00:00 13:00:00 04 leonard Denis 2016-05-24 2016-05-24 Outpatient MHIE MHIE [id number] Memoria 11:15:00 11:15:00 06 leonard Denis 2016-05-24 2016-05-24 Outpatient MHIE MHIE [id number] Memoria 11:15:00 11:15:00 06 leonard Denis 2016-04-13 2016-05-13 OP Therapy nullFlavo SMR [id number] Memoria 13:00:00 04:59:00 Patients connie Stout 03 leonard Barrios 2016-04-13 2016-05-13 OP Therapy nullFlavo SMR [id number] Memoria 13:00:00 04:59:00 Patients r Girish 03 leonard Benji Denis 2016-04-13 2016-05-12 Outpatient Elizabeth 2.16.840. 2.16.840.1. 3 [id number] 08:00:00 23:59:00 Jose Francisco Blackburn [id number]. [id number] 3.615.55 5.55 2016-03-14 2016-04-13 OP Therapy nullFlavo SMR [id number] Memoria 17:39:00 04:59:00 Patients connie Stout 02 leonard Barrios 2016-03-14 2016-04-13 OP Therapy nullFlavo SMR [id number] Memoria 17:39:00 04:59:00 Patients connie Stout 02 leonard Barrios 2016-03-14 2016-04-12 Outpatient Johnson, 2.16.840. 2.16.840.1. 3 [id number] 12:39:00 23:59:00 Jose Francisco Blackburn [id number]. [id number] 3.615.55 5.55 2016-03-09 2016-04-08 OP Therapy nullFlavo SMR Sugar [id number] Memoria 19:00:00 04:59:00 Patients r [place] leonard Barrios 2016-03-09 2016-04-08 OP Therapy nullFlavo SMR [place] [id number] Memoria 19:00:00 04:59:00 Patients r [place] leonard Barrios 2016-03-09 2016-04-07 Outpatient Johnson, 2.16.840. 2.16.840.1. 3 [id number] 14:00:00 23:59:00 Jose Francisco Blackburn [id number] 3.615.69 5.69 2016-03-13 2016-03-14 Outpt Diag nullFlavo [facility] [id number] Memoria 16:14:00 04:59:00 Services r Outpatient 04 l Imaging Denis [place] 2016-03-13 2016-03-14 Outpt Diag nullFlavo [facility] [id number] Memoria 16:14:00 04:59:00 Services r Outpatient 04 l Imaging Denis [place] 2016-03-13 2016-03-13 [address] [id number] 11:14:00 23:59:00 Jv [place] 2016-02-08 2016-03-09 OP Therapy nullFlavo SMR Sugar [id number] Memoria 19:00:00 04:59:00 Patients r [place] 2016-02-08 2016-03-09 OP Therapy nullFlavo [facility] [id number] Memoria 19:00:00 04:59:00 Patients r [place] 00 l [place] 2016-02-08 2016-03-08 Outpatient Elizabeth 2.16.840. 2.16.840.1. 3 [id number] 14:00:00 23:59:00 Jose Francisco Blackburn [id number]. [id number] 3.615.69 5.69 2016-03-02 2016-03-02 Outpatient [facility] [id number] Memoria 10:20:00 10:20:00 01 [facility] 2016-03-02 2016-03-02 Outpatient [facility] [id number] Memoria 10:20:00 10:20:00 01 leonard [place] 2016-02-29 2016-03-01 Outpt Diag nullFlavo [facility] [id number] Memoria 14:59:00 04:59:00 Services r Outpatient 03 l Imaging Denis [place] 2016-02-29 2016-03-01 Outpt Diag nullFlavo [facility] [id number] Memoria 14:59:00 04:59:00 Services r Outpatient 03 l Imaging Denis [place] 2016-02-29 2016-02-29 Outpatient Marsha Lazo [id number] 09:59:00 23:59:00 At[place] 03 2016-01-20 2016-01-21 Outpt Diag nullFlavo [facility] [id number] Memoria 18:11:00 04:59:00 Services r Outpatient 01 l Imaging Denis [place] 2016-01-20 2016-01-21 Outpt Diag nullFlavo [facility] [id number] Memoria 18:11:00 04:59:00 Services r Outpatient 01 l Imaging Denis [place] 2016-01-20 2016-01-20 Outpatient Marsha Lazo [id number] 13:11:00 23:59:00 [place] 2015-12-30 2015-12-30 Outpatient 2.16.840. 2.16.840.1. 3 [id number] Memoria 12:50:31 19:25:00 [id number]. [id number] 3.2081.20 81.2000 Vicente n [facility] [place] 2015-12-30 2015-12-30 Outpatient nullFlavo [facility] [id number] Memoria 12:50:31 19:25:00 r leonard Barrios 2015-12-30 2015-12-30 Outpatient nullFlavo [facility] [id number] Memoria 12:50:31 19:25:00 r leonard Barrios 2015-11-30 2015-12-01 Outpt Diag nullFlavo [facility] [id number] Memoria 12:58:00 05:59:00 Services r Outpatient 00 l Imaging [place] 2015-11-30 2015-12-01 Outpt Diag nullFlavo [facility] [id number] Memoria 12:58:00 05:59:00 Services r Outpatient 00 l Imaging Denis [place] 2015-11-30 2015-11-30 Outpatient Marsha Lazo [id number] 06:58:00 23:59:00 At[place] 00 2015-11-19 2015-11-19 Outpatient MHIE MHIE [id number] Memoria 10:15:00 10:15:00 02 leonard Denis 2015-11-19 2015-11-19 Outpatient MHIE MHIE [id number] Memoria 10:15:00 10:15:00 02 l Denis 2015-09-02 2015-09-02 Outpatient MHIE MHIE [id number] Memoria 11:30:00 11:30:00 00 leonard Barrios 2015-09-02 2015-09-02 Outpatient MHIE MHIE [id number] Memoria 11:30:00 11:30:00 00 leonard Barrios 2013-12-18 2013-12-18 Outpatient nullFlavo [facility] [id number] Memoria 01:16:00 05:59:00 r Denis [id number] l [place] [facility] 2013-12-18 2013-12-18 Outpatient [facility]Flavo [facility] [id number] Memoria 01:16:00 05:59:00 r Denis [id number] [place] 1 Karen nn 2013-12-17 2013-12-17 Outpatient [facility] 2.16.840. 2.16.840. 1. [id number] 19:16:00 23:59:00 , Yusef [id number]. [id number] Bernadette 3.615.0.1 5.0.758 28 6457-02-26 2013-12-17 Outpatient nullFlavo [id number] Memoria 19:16:00 19:16:00 r [place] 01 l Denis 2013-12-17 2013-12-17 Outpatient nullFlavo [id number] Memoria 19:16:00 19:16:00 r [place] 01 l [place] 2013-12-02 2013-12-02 Outpatient nullFlavo [id number] Memoria 19:43:00 19:43:00 r [place] 00 l [place] 2013-12-02 2013-12-02 Outpatient nullFlavo [id number] Memoria 19:43:00 19:43:00 r [place] 00 l Denis Results Test Description Test Time Test Comments Results Result [facility] e Comments PET/CT, CARDIAC 2022-09-26 Reason for PERF REST AND 16:05:00 exam:->angina STRESS [facility] CENTERName: FREDDIE SAUCEDO : 1955 Sex: F FINAL REPORT PROCEDURE: MYOCARDIAL PERFUSION PET/CT IMAGING (Rest/Stress)CPT CODE: 24287 INDICATION: Evaluation for chest pain CARDIOVASCULAR PROFILE:CAD [...] prior study for comparison. Signed: Corbin Casper [facility] Verified Date/Time: 09/26/2022 16:05:42 C METABOLIC PANEL [...] GFR i s not applicable for dialysis pa tients Boxer Operator ID - MARCOSpecimen slightly [id number] 05:55:08 Test Item Value Reference Range Interpretation Comments MAGNESIUM (BEAKER) 1.9 mg/dL 1.6-2.6 Specimen slightly (test code = 627) hemolyzed Boxer Operator ID - [id number] 05:55:08 Test Item Value Reference Range Interpretation Comments PHOSPHORUS (BEAKER) 3.4 mg/dL 2.3-4.7 Specimen slightly (test code = 604) hemolyzed Boxer Operator ID - MARCOCBC W/PLT COUNT & AUTO [id number] 04:43:14 Test Item Value Reference Range Interpretation [...] 2801) PROTEIN ELECTROPHORESIS, SERUM WITH REFLEX TO [id number] 16:42:33 Test Item Value Reference Range Interpretation [...] 2615) malnutrition or a protein losing state. [id number] Crystal Moore MD (BEAKER) (test code = (electronic signature) 2616) PROTEIN TOTAL SERUM, 6.0 gm/dL 6.0-8.3 SPEP (BEAKER) (test code = 2660) Clinical Retail Advertising Account Executive - SFOperator ID - LETICIA BOperator ID - ADMPERIPHERAL BLOOD SMEAR - PATHOLOGIST [id number] 14:33:15 Test Item Value Reference Range Interpretation Comments PERIPHERAL SMR REVIEW Cell counts confirmed. (BEAKER) (test code = There is macrocytic 2640) anemia. Platelets are decreased with no significant platelet clumps or satellitism identified. [id number] Evan Dixon, (BEAKER) (test code = M.D. 6099) HEPATITIS B SURFACE [id number] 10:29:09 Test Item Value Reference Range Interpretation Comments HEPATITIS B SURFACE ANTIGEN (2) Nonreactive Nonreactive (BEAKER) (test code = 2585) Specimen is considered negative for HBsAg.Transthoracic 2D echo w/ doppler (cw/pw/color)2022-09-25 08:20:07E[facility] (cw/pw/color) 2022-09-25 08:20:07Ejection FractionSLE ECHO [facility] [id number] 05:41:18 Test Item Value Reference Range Interpretation Comments HEPATITIS C ANTIBODY (BEAKER) Nonreactive Nonreactive (test code = 367) Boxer Operator ID - EMMANUELBASIC METABOLIC [id number] 05:22:16 Test Item Value Reference Range Interpretation [...] eGFR (test code = mL/min/1.73 values Stage D escription 1092) sq m Result G1 Savan[place] l [...] not appl icable for dialysis patien ts Boxer Operator ID - [id number] 05:21:47 Test Item Value Reference Range Interpretation Comments MAGNESIUM (BEAKER) (test code = 2.0 mg/dL 1.6-2.6 627) Boxer Operator ID - [id number] 05:21:47 Test Item Value Reference Range Interpretation Comments PHOSPHORUS (BEAKER) (test code = 4.8 mg/dL 2.3-4.7 H 604) Boxer Operator ID - EMMANUELCBC W/PLT COUNT & AUTO [id number] 05:05:48 Test Item Value Reference Range Interpretation [...] (BEAKER) (test code = 2801) BASIC METABOLIC [id number] 05:39:02 Test Item Value Reference Range Interpretation [...] decreased 60-89 G3a Mildl y to moderately 45- 59 G3b Moderately to s everely 30-44 G4 Severl y decreased 15-29 G5 Kidney failure <15Reported eGF R is based on the CKD-EPI 2020 equation that d oes not use a race coefficientEsti mated GFR is not as accur ate as Creatinine Josseline viral in predicting glom erular filtration rate . Estimated GFR is not appl icable for dialysis patien ts Boxer Operator ID - JUANITA [id number] 05:34:03 Test Item Value Reference Range Interpretation Comments MAGNESIUM (BEAKER) (test code = 1.9 mg/dL 1.6-2.6 627) Boxer Operator ID Merline GRANT [id number] 05:34:03 Test Item Value Reference Range Interpretation Comments PHOSPHORUS (BEAKER) (test code = 5.9 mg/dL 2.3-4.7 H 604) Boxer Operator ID Merline GRANT WCBC W/PLT COUNT & AUTO [id number] 04:51:11 Test Item Value Reference Range Interpretation [...] 417) IMMATURE GRANULOCYTES-RELATIVE 0.70 % 0.00-1.00 PERCENT (BEAKER) (test code = 2801) HIGH SENSITIVITY TROPONIN [id number] 18:47:20 Test Item Value Reference Range Interpretation Comments HIGH SENSITIVITY 22 pg/ml See_Comment H [Automated message] TROPONIN I (test code = The system which [id number]) generated this result transmitted ref erence range: <=17. Th e reference range was not used to int erpret this result as normal/abnormal . Boxer Operator ID - LETICIA BThe BEAUTY CULTURE TEACHER STAT High Sensitivity Troponin-I results should be used in conjunction with other diagnostic information such as ECG, clinical observations and information, and patient symptoms to aid in the diagnosis of PR.[id number] 18:35:03 Test Item Value Reference Range Interpretation Comments POTASSIUM (BEAKER) (test code = 3.1 meq/L 3.5-5.1 L 379) Boxer Operator ID - LETICIA JUSTIN, CHEST, 1 VIEW, NON [id number] 16:19:00Reason for exam:->pulm edemaShould this be performed at the bedside?->Yes [facility] CENTERName: FREDDIE SAUCEDO : 1955 Sex: FFINAL REPORT [...] Normal contours. Additional findings: None. Signed: Samia Rodriguezepnelson Verified Date/Time: 09/23/2022 16:19:33 [id number] 16:00:35 Test Item Value Reference Range Interpretation Comments THYROID STIMULATING HORMONE 1.121 uIU/mL 0.350-4.940 (BEAKER) (test code = 772) Boxer Operator ID - LETICIA BHIGH SENSITIVITY TROPONIN [id number] 15:45:53 Test Item Value Reference Range Interpretation Comments HIGH SENSITIVITY 23 pg/ml See_Comment H [Automated message] TROPONIN I (test code = The system which [id number]) generated this result transmitted ref erence range: <=17. Th e reference range was not used to int erpret this result as normal/abnormal . Boxer Operator ID - LETICIA BThe BEAUTY CULTURE TEACHER STAT High Sensitivity Troponin-I results should be used in conjunction with other diagnostic information such as ECG, clinical observations and information, and patient symptoms to aid in the diagnosis of PR.B-TYPE NATRIURETIC FACTOR (BNP)2022-09-23 15:45:53 Test Item Value Reference Range Interpretation Comments B-TYPE NATRIURETIC PEPTIDE (BEAKER) 395 pg/mL 0-100 H (test code = 700) Boxer Operator ID - LETICIA BCOMPREHENSIVE METABOLIC [id number] 15:42:17 Test Item Value Reference Range Interpretation [...] (test code = 347) EGFR (BEAKER) 7 Interpretatio n of eGFR (test code = 1092) mL/min/1.[address] age Description sq m Result G1 [place] l or high >=90 G2 Mildly decreased 60-89 G3a Mildl y to moderately 45-5 9 G3b Moderately to s everely 30-44 G4 Severl y decreased 15-29 G5 Kidne y failure <15Reported eGF R is based on the CKD-EPI 2020 equation that d oes not use a race coefficientEsti mated GFR is not as accur ate as Creatinine Josseline stratton in predicting glom erular filtration rate . Estimated GFR is not appl icable for dialysis patien ts Boxer Operator ID - LETICIA [id number] 15:39:33 Test Item Value Reference Range Interpretation Comments MAGNESIUM (BEAKER) (test code = 1.9 mg/dL 1.6-2.6 627) Boxer Operator ID - LETICIA [id number] 15:39:33 Test Item Value Reference Range Interpretation Comments PHOSPHORUS (BEAKER) (test code = 5.0 mg/dL 2.3-4.7 H 604) Boxer Operator ID - LETICIA BCBC W/PLT COUNT & AUTO [id number] 15:23:08 Test Item Value Reference Range Interpretation [...] (BEAKER) (test code = 2801) ECG 12 [id number] 22:49:39 Test Item Value Reference Range Interpretation [...] ECG of 28-APR-2022 02:20,-QRS axis shifted right- [facility] [id number]-GdI-[id number] (COVID-19) RNA [Presence] in Respiratory specimen by DANIEL with probe [id number] 04:29:38 Test Item Value Reference Range Interpretation Comments SARS-CoV-2 (COVID-19) RNA Not detected [Presence] in Respiratory specimen by DANIEL with probe detection (test code = 44660-7) Whether patient is employed in a Unknown healthcare setting (test code = 50541-2) Whether the patient has symptoms Unknown related to condition of interest (test code = 39332-6) Whether the patient was Unknown hospitalized for condition of interest (test code = 20103-1) Whether the patient was admitted Unknown to intensive care unit (ICU) for condition of interest (test code = 18927-9) Whether patient resides in a Unknown congregate care setting (test code = 20831-6) status (test code = Unknown 52148-8) Date and time of symptom onset Unknown (test code = 11476-0) [facility]athy[facility] ynubgqr9252-23-88 17:49:00 Test Item Value Reference Interpretation Comments [...] = Performing RAC) Organization Information: Site ID: [facility] Name: [facility] Lab Address: [address] [place] [phone] Director: Yusef Boyce Lab Abnormal Interpretation (test code = 06696-4) [facility] CenterThy[facility] stimulating qoyiqvy3344-64-83 17:49:00 Test Item Value Reference Range Interpretation [...] code = RAC) Organization Information: Site ID: [facility] Name: [facility] Address: [address] [place] [phone] Director: Yusef Boyce [facility] CenterVitamin D 25 hydroxy wxgno5513-80-23 17:49:00 Test Item Value Reference Range Interpretation [...] please refer to [email or web address] (T his link is being provided for informational/e gini ational purpose s only.) GUICHO (test code = FASTING:NO FASTING: GUICHO) NO RAC (test code = Performing RAC) Organization Information: Site ID: [facility] Name: [facility] Lab Address: [address] [place] [address] Director: Yusef Boyce [facility] ifamtvo0082-33-05 04:51:00 Test Item Value Reference Range Interpretation Comments POC glucose (test code = 129 mg/dL 65-99 H Ope rator Name: [id number]) Alfred Timmons~Radha ce ID: [id number]~Laura table : HMW Notified director federal Interpretation (test Abnormal code = 27811-2) [facility] Center[facility]an[facility]hor[facility] Echocardiogram Complete, (w Contrast, Strain and 3D if needed)2022-06-26 14:28:07 Test Item Value Reference Interpretation Comments Range RA pressure (test mmHg code = 4675434125) EF (test code = 50 % 54-74 A 3428241368) IVS,d (test code = 0.92 cm 0.6-0.9 A 8710436517) IVS s 2D (test code 1.08 cm = 2607710384) LVPWD,d (test code = 0.93 cm 0.60-1.19 0722536774) LVPW s PLAX (test 1.13 cm code = 5034195860) LV,s (test code = 2.94 cm 7380377973) LVOT Diam,S (test 1.98 cm code = 1824085718) LV BURGESS VOL (test 66.04 ml 46-106 code = 2749196251) LV SYS VOL (test 33.32 ml 14-42 code = 0285828338) MV Peak E Jonathan (test 1.61 m/s code = 7805129163) MV Peak A Jonathan (test 0.58 m/s code = 1883968713) E/A ratio (test code See_Comment A [Autom ated = 8107915188) message] The system which generated this result transmitted reference range : <=0.8. The reference range was not used to interpret this result as normal/abnormal . E wave decelartion See_Comment A [Automat ed time (test code = message] T he 6429943865) system which generated this result transmitted reference range : 200 msec. The reference range was not used to interpret this result as normal/abnormal . LV,d (test code = 3.90 cm 9021454975) IVS/LVPW,2D (test code = 2660524667) LV EF,2D (test code 57.26 % = 3004277311) LV FS Cube 2D (test code = 2538939813) LV FS Teich 2D (test code = 7412309864) LV SV Teich 2D (test 32.73 ml code = 1599119045) LV Vol s Teich PSAX 33.32 ml (test code = 7308227179) LVOT stroke volume 0.46 cm3 (test code = 8800281082) Left Atrium 5.30 cm See_Comment A [Automated Dimension Anterior message] The (test code = system which 1641407124) generated this result transmitted reference range : <=3.8. The reference range was not used to interpret this result as normal/abnormal . LA Vol MOD A4C (test 130.09 ml code = 0137098824) LA area s A4C (test 36.52 cm2 code = 9673438014) LVOT area (test code 3.08 cm2 = 4667506865) LVOT Vmax (test code 0.85 m/s = 9833132916) AoV Mean PG (test See_Comment [Automate d code = 7362844377) message] The system which generated this result transmitted reference range : 20 mmHg. The reference range was not used to interpret this result as normal/abnormal . AoV Peak PG (test mmHg code = 1768708484) AV LVOT peak mmHg gradient (test code = 0142238945) AoV Area, Vmax (test 1.94 cm2 See_Comment [Autom ated code = 2653338655) message] The system which generated this result transmitted reference range : >=1.5. The reference range was not used to interpret this result as normal/abnormal . LVOT VTI (CM) (test 15.00 cm code = 9272090366) AoV Vmax (test code 1.35 m/s = 4811876851) AoV Vmn (test code = 0.82 m/s 5100347972) AoV Area, VTI (test 2.30 cm2 code = 6765331116) LVOT CO (test code = 4.72 l/min 1401695107) LVOT HR for LVOT CO bpm (test code = 4824566688) Velocity Ratio 0.63 m/s (V1/V2) (test code = 4689) MV mean gradient See_Comment [Automated (test code = message] The 3706052133) system which generated this result transmitted reference range : 5 mmHg. The reference range was not used to interpret this result as normal/abnormal . MR peak grad (test mmHg code = 8164734570) MV stenosis pressure 30.12 ms See_Comment [Autom ated 1/2 time (test code message] The = 8459508812) system which generated this result transmitted reference range : <=150. The reference range was not used to interpret this result as normal/abnormal . MV E A ratio (test code = 3972080999) MV valve area p 1/2 7.30 cm2 method (test code = 1618260461) MV VTI Tips (test 0.15 m code = 3066511424) MV Vmax (test code = 0.72 m 0404595118) RVSP (test code = See_Comment A [Automate d 5654524952) message] The system which generated this result transmitted reference range : 40.00 mmHg. The reference range was not used to interpret this result as normal/abnormal . TR pk grad (test mmHg code = 0804600618) TR Vpeak (test code 2.85 m/s = 1099709417) RVSP (TR) (test code mmHg = 9865028967) RVOT Vmax (test code 0.44 m/s = 8786756383) PV Mean Grad (test mmHg code = 8042834438) PV Pk Grad (test See_Comment [Automated code = 8276772865) message] The system which generated this result transmitted reference range : 36 mmHg. The reference range was not used to interpret this result as normal/abnormal . PV VTI (test code = 0.17 m 9880726303) RVOT pk grad (test mmHg code = 4094809453) PV VMAX (test code = 1.05 m/s See_Comment [Autom ated 6907313553) message] The system which generated this result transmitted reference range : <=3. The reference range was not used to interpret this result as normal/abnormal . PV Vmn (test code = 0750045107) Ao Root Diameter 2.95 cm See_Comment [Automated (test code = message] The 0461666926) system which generated this result transmitted reference range : <=3.99. The reference range was not used to interpret this result as normal/abnormal . Ao Root Diameter 2.95 cm (test code = 1948997337) Ascending aorta 2.58 cm (test code = 0168696301) Pred METS R1 (test code = 8353159283) Pred Exer Dur R1 (test code = 0608290812) MV Decel slope (test 15.54 m/s2 code = 8106258872) LVPW pct thck PLAX 20.67 % (test code = 6324841733) LV vol s cube 2D 25.42 ml (test code = 4229906553) LV vol d cube 2D 59.47 ml (test code = 5495022515) LV SV Cube 2D (test 34.05 ml code = 1258081912) IVS pct thck PLAX 17.04 % (test code = 0041057575) Calc MPHR (test code bpm = 3767167909) 85 of MPHR (test code = 2896582185) RVOT VTI (test code 0.08 m = 9559467302) RVOT Vmn (test code 0.30 m/s = 2993486420) RVOT mean grad (test mmHg code = 7161582249) MAX Pred HR (test code = 2409534538) LVOT mean grad (test mmHg code = 9178603539) Aov area Vmn (test 2.31 cm2 code = 6463777525) MV AE ratio (test code = 7928958506) LVOT Vmn (test code = 6300467800) MR Vmax (test code = 4.65 m/s 5201806189) AoV VTI (test code = 0.20 m 9607653822) LVOT VTI (test code 0.15 m = 7156547930) GUICHO (test code = GUICHO) Left Ventricle: [...] artifact. Lab Interpretation Abnormal (test code = 52283-6) [facility] RNA [Presence] in Respiratory specimen by DANIEL with probe pvpstwtga8360-37-51 19:34:22 Test Item Value Reference Range Interpretation Comments SARS-CoV-2 (COVID-19) RNA [Presence] Detected in Respiratory specimen by DANIEL with probe detection (test code = 58441-6) Whether patient is employed in a Unknown healthcare setting (test code = 17819-9) Whether the patient has symptoms Unknown related to condition of interest (test code = 26182-2) Whether the patient was hospitalized Unknown for condition of interest (test code = 37191-8) Whether the patient was admitted to Unknown intensive care unit (ICU) for condition of interest (test code = 64456-7) Whether patient resides in a Unknown congregate care setting (test code = 09800-0) status (test code = Unknown 72448-3) Date and time of symptom onset (test Unknown code = 86860-0) [facility] METABOLIC [id number] 16:39:00 Test Item Value Reference Range Interpretation [...] = 8.8 mg/dL 8.0-10.5 N CA) PROTHROMBIN [id number] 16:33:00 Test Item Value Reference Range Interpretation [...] (to prevent recurrent infar ct). CBC W/AUTO [id number] 16:23:00 Test Item Value Reference Range Interpretation [...] code NO = MDIFF) Hepatitis B surface kgiaghpe4117-53-01 21:36:32 Test Item Value Reference Range Interpretation Comments Hep B S Ab (test code <8.0 See_Comment [Auto mated = 29603-7) message] The system which generated this result transmit yahir reference range : <8.0 mIU/mL. Th e reference range was not used to interpret this result as normal/abnormal . GUICHO (test code = GUICHO) Boxer Operator ID - DB Lab Interpretation Normal (test code = 48601-6) [facility] csjlohpv3654[facility]95-34 21:36:32 Test Item Value Reference Range Interpretation Comments Hep B S Ab (test code <8.0 See_Comment [Auto mated = 35558-0) message] The system which generated this result transmit yahir reference range : <8.0 mIU/mL. Th e reference range was not used to interpret this result as normal/abnormal . GUICHO (test code = GUICHO) Boxer Operator ID - DB Lab Interpretation Normal (test code = 20179-4) [facility] dcbqgftk8717-39-23 21:36:32 Test Item Value Reference Range Interpretation Comments Hep B S Ab (test code <8.0 See_Comment [Auto mated = 90255-0) message] The system which generated this result transmit yahir reference range : <8.0 mIU/mL. Th e reference range was not used to interpret this result as normal/abnormal . GUICHO (test code = GUICHO) Boxer Operator ID - DB Lab Interpretation Normal (test code = 50978-4) [facility] tnzeqsne0992-76-37 21:36:32 Test Item Value Reference Range Interpretation Comments Hep B S Ab (test code <8.0 See_Comment [Auto mated = 15199-3) message] The system which generated this result transmit yahir reference range : <8.0 mIU/mL. Th e reference range was not used to interpret this result as normal/abnormal . GUICHO (test code = GUICHO) Boxer Operator ID - DB Lab Interpretation Normal (test code = 61362-9) [facility] [id number] 21:36:32 Test Item Value Reference Range Interpretation Comments HEPATITIS B SURFACE ANTIBODY < mIU/mL <8.0 (BEAKER) (test code = 647) Boxer Operator ID - DBHepatitis B surface glzeyof7683-35-42 21:24:22 Test Item Value Reference Range Interpretation Comments Hepatitis B surface Nonreactive Nonreactive antigen (test code = 5195-3) GUICHO (test code = GUICHO) Specimen is considered negative for HBsAg. Lab Interpretation (test Normal code = 34514-2) [facility] hcrpjpv5074-33-73 21:24:22 Test Item Value Reference Range Interpretation Comments Hepatitis B surface Nonreactive Nonreactive antigen (test code = 5195-3) GUICHO (test code = GUICHO) Specimen is considered negative for HBsAg. Lab Interpretation (test Normal code = 39648-0) [facility] [id number] 21:24:22 Test Item Value Reference Range Interpretation Comments HEPATITIS B SURFACE ANTIGEN (2) Nonreactive Nonreactive (BEAKER) (test code = 2585) Specimen is considered negative for HBsAg.Transthoracic Echocardiogram Complete, (w Contrast, Strain and 3D if needed)2022-04-13 13:23:07 Test Item Value Reference Interpretation Comments Range EF (test code = 66 % 54-74 0437051078) IVS,d (test code = 1.03 cm 0.6-0.9 A 4718933478) LVPWD,d (test code = 1.27 cm 0.60-1.19 A 2293108008) LV,s (test code = 2.56 cm 0797688682) LVOT Diam,S (test 2.01 cm code = 1078746406) LV BURGESS VOL (test 69.20 ml 46-106 code = 7171377733) LV SYS VOL (test 23.74 ml 14-42 code = 1656073095) MV Peak E Jonathan (test 1.20 m/s code = 8850519673) MV Peak A Jonathan (test 0.47 m/s code = 6748442859) E/A ratio (test code See_Comment A [Autom ated = 2947205596) message] The system which generated this result transmitted reference range : <=0.8. The reference range was not used to interpret this result as normal/abnormal . E wave decelartion See_Comment A [Automat ed time (test code = message] T he 3663126934) system which generated this result transmitted reference range : 200 msec. The reference range was not used to interpret this result as normal/abnormal . LV,d (test code = 3.98 cm 1456430523) IVS/LVPW,2D (test code = 8612022486) LV EF,2D (test code 73.32 % = 4171684107) LV FS Cube 2D (test code = 6291539197) LV FS Teich 2D (test code = 6051249524) LV SV Teich 2D (test 45.46 ml code = 3526959236) LV Vol s Teich PSAX 23.74 ml (test code = 4710888436) LVOT stroke volume 0.35 cm3 (test code = 2802448525) Left Atrium 4.52 cm See_Comment A [Automated Dimension Anterior message] The (test code = system which 9347447813) generated this result transmitted reference range : <=3.8. The reference range was not used to interpret this result as normal/abnormal . LA Vol MOD A4C (test 83.62 ml code = 8227834640) LA area s A4C (test 28.59 cm2 code = 7707566050) LA Ao Ratio Mmode (test code = 4240414677) LVOT area (test code 3.17 cm2 = 8060273598) LVOT Vmax (test code 0.62 m/s = 9067808947) AoV Mean PG (test See_Comment [Automate d code = 8805365677) message] The system which generated this result transmitted reference range : 20 mmHg. The reference range was not used to interpret this result as normal/abnormal . AoV Peak PG (test mmHg code = 5858505377) AV LVOT peak mmHg gradient (test code = 6209564929) AoV Area, Vmax (test 2.00 cm2 See_Comment [Autom ated code = 3391064538) message] The system which generated this result transmitted reference range : >=1.5. The reference range was not used to interpret this result as normal/abnormal . LVOT VTI (CM) (test 11.00 cm code = 0482648480) AoV Vmax (test code 0.98 m/s = 1663841230) AoV Vmn (test code = 0.65 m/s 2460435674) AoV Area, VTI (test 2.42 cm2 code = 9756645030) Velocity Ratio 0.63 m/s (V1/V2) (test code = 4689) MR peak grad (test mmHg code = 7111574159) MV stenosis pressure 31.00 ms See_Comment [Autom ated 1/2 time (test code message] The = 7803154336) system which generated this result transmitted reference range : <=150. The reference range was not used to interpret this result as normal/abnormal . MV E A ratio (test code = 8936193565) MV valve area p 1/2 7.10 cm2 method (test code = 0227698297) E prime lat (test code = 3565508385) E katherine sept (test code = 2021783418) RVSP (test code = See_Comment A [Automate d 0394402391) message] The system which generated this result transmitted reference range : 40.00 mmHg. The reference range was not used to interpret this result as normal/abnormal . RA pressure (test mmHg code = 6074947651) TR pk grad (test mmHg code = 8950247263) TR Vpeak (test code 3.51 m/s = 0725891797) RVSP (TR) (test code mmHg = 2058995461) RVOT Vmax (test code 0.46 m/s = 8542716492) PV Pk Grad (test See_Comment [Automated code = 7176830270) message] The system which generated this result transmitted reference range : 36 mmHg. The reference range was not used to interpret this result as normal/abnormal . RVOT pk grad (test mmHg code = 4341430437) PV VMAX (test code = 1.15 m/s See_Comment [Autom ated 1142018132) message] The system which generated this result transmitted reference range : <=3. The reference range was not used to interpret this result as normal/abnormal . Ao root annulus 2.82 cm (test code = 4881696066) Ao Root Diameter 3.23 cm See_Comment [Automated (test code = message] The 3043667810) system which generated this result transmitted reference range : <=3.99. The reference range was not used to interpret this result as normal/abnormal . Ao Root Diameter 3.23 cm (test code = 5788895258) Ascending aorta 3.69 cm (test code = 4779419031) Pred METS R1 (test code = 0657178422) Pred Exer Dur R1 (test code = 4353316900) MV Decel slope (test 11.26 m/s2 code = 7609108172) LV vol s cube 2D 16.83 ml (test code = 0018911108) LV vol d cube 2D 63.08 ml (test code = 2392013502) LV SV Cube 2D (test 46.25 ml code = 0685086664) Calc MPHR (test code bpm = 3360113074) 85 of MPHR (test code = 5305071084) MAX Pred HR (test code = 7839634081) LVOT mean grad (test mmHg code = 1542273491) Aov area Vmn (test 1.92 cm2 code = 7699754604) MV AE ratio (test code = 8460907912) LVOT Vmn (test code = 3889042096) MR Vmax (test code = 4.22 m/s 8229784076) AoV VTI (test code = 0.15 m 6696671589) LVOT VTI (test code 0.11 m = 2430214544) GUICHO (test code = GUICHO) Left Ventricle: [...] tachycardia. Lab Interpretation Abnormal (test code = 03031-6) [facility] [id number] 07:26:00 Test Item Value Reference Interpretation Comments Range Urine culture Proteus bhtqimc42-8 A Specime n isolate (test cfu/mlThe InformationSpe [facility]ale general hospitalen code = 68384-6) performance Source: Urin eSpecimen characteristics of Site: Christopher an catch this assay on this isolatewere validated by the Microbiology Laboratory at [facility]. This source has not been approved by the U.S. Food and Drug Administration. The results are not intended to be used as the sole means for clinical diagnosis or patient management. The Microbiology Laboratory is authorized under the clinical Laboratory Improvement Amendments of 1988 (CLIA-88) to perform high complexity testing. Lab Abnormal Interpretation (test code = 19808-6) [facility] RNA [Presence] in Respiratory specimen by DANIEL with probe [id number] 00:41:02 Test Item Value Reference Range Interpretation Comments SARS-CoV-2 (COVID-19) RNA Not detected [Presence] in Respiratory specimen by DANIEL with probe detection (test code = 46930-4) Whether patient is employed in a Unknown healthcare setting (test code = 04175-9) Whether the patient has symptoms Unknown related to condition of interest (test code = 51212-6) Whether the patient was Unknown hospitalized for condition of interest (test code = 78892-6) Whether the patient was admitted Unknown to intensive care unit (ICU) for condition of interest (test code = 07952-9) Whether patient resides in a Unknown congregate care setting (test code = 62468-0) status (test code = Unknown 73317-9) Date and time of symptom onset Unknown (test code = 17448-3) [facility]- XR [id number] 10:28:00 [facility] : 1955 Sex: F Name: FREDDIE SAUCEDO [facility] : 1955 Age/S: 66 / F [address] [place] Unit #: [id number] Loc: [place] [address] Phys: Mic Aiken MD Acct: [id number] Dis Date: Status: [facility] PHONE #: [phone] Exam Date: 03/08/2022 0950 FAX #: Reason: ERCP EXAMS: CPT: [id number] XR ERCP 14989 Fluoro Time: 33 SEC DAP (Gy m2): [...] PAGE 1 Signed Report Name: FREDDIE SAUCEDO [place] : 1955 Age/S: 66 / F [address] Unit #: [id number]: [place] [address] Phys: Mic Aiken MD Acct: [id number] Dis Date: Status: REG SDC PHONE #: [phone] Exam Date: 03/08/2022 0950 FAX #: Reason: ERCP EXAMS: CPT: [id number] XR ERCP 88387 Fluoro Time: 33 SEC DAP (Gy m2): Air Kerma (mGy): (Continued) Technologist: Naila Davis, RT(R) Trnscb Date/Time: 03/08/2022 (0229) t.DIANNRHannaANS4 Orig Print D/T: S: 03/08/2022 (7123) PAGE 2 Signed AnpnjvZESVDIZAQ8097-12-79 08:51:00 Test Item Value Reference Range Interpretation Comments POTASSIUM (test code = K) 5.1 mmol/L 3.4-5.0 H CBC W/AUTO [id number] 08:15:00 Test Item Value Reference Range Interpretation [...] NO DIFF/SCN CRITERIA = MDIFF) BASIC METABOLIC [id number] 08:08:00 Test Item Value Reference Range Interpretation [...] 9.9 MG/DL 8.5-10.1 N COVID 19 INHOUSE [id number] 14:11:00 Test Item Value Reference Range Interpretation Comments COVID 19 INHOUSE AG NEGATIVE Negative Per manu facturer, (test code = negative result s should HJXMP78UJJM) be treated aspr esumptive and, if inconsi [...] symptoms co nsistent with COVID-19. CBC W/AUTO [id number] 14:00:00 Test Item Value Reference Range Interpretation [...] NT WITH AUTO DIFFERENTI AL. BASIC METABOLIC [id number] 13:32:00 Test Item Value Reference Range Interpretation [...] CA) 10.1 MG/DL 8.5-10.1 N HEPATIC FUNCTION [id number] 13:32:00 Test Item Value Reference Range Interpretation [...] 222 Unit/L 45-117 H code = ALKP) [id number] 13:32:00 Test Item Value Reference Range Interpretation Comments LIPASE (test code = LIP) 109 Unit/L 114-286 L [id number] 18:01:00 Test Item Value Reference Range Interpretation Comments SURGICAL (test code = SR) RUN DATE: 03/01/22 [facility] PAGE 1 RUN TIME: 1801 Specimen Inquiry RUN USER: INTERFACE LIANNA ENT: FREDDIE SAUCEDO LOC: [facility] U #: [id number] AGE/SX: 66/F ROOM: RE02/27/22REG DR: Adam King MD : [birth year] BED: DIS: STATUS: [place] [facility] TLOC: SPEC #: [id number]:[id number] RECD: 02/27/22 STATUS: YULIA PILLAI #: [id number] LUZ: 02/27/[address] [facility] DR: Adam King MD ENTERED: 02/27/22 SP TYPE: SURGICAL OTHR DR: Antonella Rodriguez MD ORDERED: 21641/2, 27386, 46253, 51040, ANATOMIC SPEC, SPECIMEN TRACK COPIES TO: Antonella Rodriguez MD [address] [place] [address] Adam King MD [address] [place] [address] PROCEDURES: 38885 (02/27/22) 58056 (03/01/22) 16282 (03/01/22) 05497 (03/01/22) SPECIMEN TRACK (02/27/22) TISSUES: A. GASTRIC [...] internal) control is negative (staining performed at [facility]). CONTINUED ON NEXT PAGE RUN DATE: 03/01/22 [facility] PAGE 2 RUN TIME: 1801 Specimen Inquiry RUN USER: INTERFACE SPEC #: [id number]:[facility]:[id number] PATIENT: FREDDIE SAUCEDO #[id number] (Continued) ------- GROSS DESCRIPTION A. Antrum and body biopsy. It consists of 4 tissue fragments measuring 2-5 mm. All as A1. B. Distal esophageal biopsy. It consists of 2 tissue fragments measuring 3 mm each. Allas B1. Technical component performed at [facility] , [place] [address] Unless gross only, the diagnosis is based upon microscopic examination.Immunohistochemistry : This test was developed and its performancecharacteristics determined by this laboratory. It has not been approved nordoes it need approval by the [place] FDA. Appropriate positive and negative controlsare reviewed and judged to be acceptable. This laboratory is certified undert Clinical Laboratory Improvement Amendments (CLIA-88) as qualified toperform high complexity clinical laboratory testing. MICROSCOPIC DESCRIPTION Findings are incorporated into the diagnosis section. ---- Signed SIGNATURE ON Obdulio Hart 03/01/22 180 END OF REPORT BASIC METABOLIC [id number] 08:13:00 Test Item Value Reference Range Interpretation [...] MG/DL 8.5-10.1 N - XR CHEST 2 [id number] 13:28:00 [facility] : 1955 Sex: F Name: FREDDIE SAUCEDO [place] : 1955 Age/S: 66 / F [address] [place] Unit #: [id number] Loc: [place] [address] Phys: Adam King MD Acct: [id number] Dis Date: Status: PRE PAC PHONE #: [phone] Exam Date: 02/24/2022 1253 FAX #: Reason: PRE OP EXAMS: CPT: [id number] XR CHEST 2 V 81987 Fluoro Time: DAP (Gy m2): Air Kerma [...] PAGE 1 Signed Report Name: ZHANG SAUCEDO [place] : 1955 Age/S: 66 / F [address] [place] Unit #: [id number] Loc: [place] [address] Phys: Adam King MD Acct: [id number] Dis Date: Status: PRE PAC PHONE #: [phone] Exam Date: 02/24/2022 1258 FAX #: Reason: PRE OP EXAMS: CPT: [id number] XR CHEST 2 V 70725 Fluoro Time:DAP (Gy m2): Air Kerma (mGy): (Continued) Technologist: Priya Lemos RT (R)(CT) Trnscb Date/Time: 02/24/2022 (1328) [email or web address].[email or web address] Orig Print D/T: S: 02/24/2022 (1332) PAGE 2 Signed ReportBASIC METABOLIC [id number] 12:55:00 Test Item Value Reference Range Interpretation [...] 10.5 MG/DL 8.5-10.1 H COVID 19 INHOUSE [id number] 12:52:00 Test Item Value Reference Range Interpretation Comments COVID 19 INHOUSE AG NEGATIVE Negative Per manu facturer, (test code = negative result s should [id number]) be treated aspr esumptive and, if inconsi [...] and symptoms co nsistent with COVID-19. PROTHROMBIN [id number] 12:44:00 Test Item Value Reference Range Interpretation [...] (to prevent recurrent infar ct). THROMBOPLASTIN TIME [id number] 12:44:00 Test Item Value Reference Range Interpretation Comments THROMBOPLASTIN TIME PARTIAL 36.2 SECONDS 26-35 H (test code = PTT) CBC W/AUTO [id number] 12:43:00 Test Item Value Reference Range Interpretation [...] in Respiratory specimen by DANIEL with probe arukuegur9836-83-50 23:10:10 Test Item Value Reference Range Interpretation Comments SARS coronavirus RNA [Presence] Not detected in Isolate by DANIEL with probe detection (test code = 18634-1) Whether patient is employed in a No healthcare setting (test code = 62700-4) Whether the patient has symptoms Yes related to condition of interest (test code = 79853-7) Whether the patient was No hospitalized for condition of interest (test code = 16779-7) Whether the patient was admitted No to intensive care unit (ICU) for condition of interest (test code = 24591-9) Whether patient resides in a No congregate care setting (test code = 05031-2) status (test code = No 53865-0) Date and time of symptom onset Unknown (test code = 22289-1) [facility] RNA [Presence] in Respiratory specimen by DANIEL with probe [id number] 23:10:10 Test Item Value Reference Range Interpretation Comments SARS-CoV-2 (COVID-19) RNA Not detected [Presence] in Respiratory specimen by DANIEL with probe detection (test code = 00555-9) Whether patient is employed in a No healthcare setting (test code = 78343-2) Whether the patient has symptoms Yes related to condition of interest (test code = 81893-8) Whether the patient was No hospitalized for condition of interest (test code = 62834-2) Whether the patient was admitted No to intensive care unit (ICU) for condition of interest (test code = 94055-7) Whether patient resides in a No congregate care setting (test code = 06322-6) status (test code = No 65580-8) Date and time of symptom onset Unknown (test code = 40034-7) [facility]-CoV[facility] (COVID-19) RNA [Presence] in Respiratory specimen by DANIEL with probe kiqyaobox6288-17-18 22:34:30 Test Item Value Reference Range Interpretation Comments SARS-CoV-2 (COVID-19) RNA Not detected Not-Detected [Presence] in Respiratory specimen by DANIEL with probe detection (test code = 65774-5) Whether patient is employed in a healthcare setting (test code = 05137-5) Whether the patient has symptoms related to condition of interest (test code = 17181-4) Patient was hospitalized because of this condition (test code = 33540-0) Whether the patient was admitted to intensive care unit (ICU) for condition of interest (test code = 78141-0) Whether patient resides in a congregate care setting (test code = 07834-3) [facility]-CoV-2 (COVID-19) RNA [Presence] in Respiratory specimen by DANIEL with probe iiwagqvcg2933-19-12 22:35:42 Test Item Value Reference Range Interpretation Comments SARS-CoV-2 (COVID-19) RNA Not detected Not-Detected [Presence] in Respiratory specimen by DANIEL with probe detection (test code = 80130-7) Whether patient is employed in a healthcare setting (test code = 50713-5) Whether the patient has symptoms related to condition of interest (test code = 45398-7) Patient was hospitalized because of this condition (test code = 09353-0) Whether the patient was admitted to intensive care unit (ICU) for condition of interest (test code = 96382-2) Whether patient resides in a congregate care setting (test code = 19861-1) [facility]-CoV-2 (COVID-19) RNA [Presence] in Respiratory specimen by DANIEL with probe spkwdzjng5892-01-82 22:46:10 Test Item Value Reference Range Interpretation Comments SARS-CoV-2 (COVID-19) RNA Not detected Not-Detected [Presence] in Respiratory specimen by DANIEL with probe detection (test code = 64894-9) Whether patient is employed in a healthcare setting (test code = 90685-9) Whether the patient has symptoms related to condition of interest (test code = 09431-0) Patient was hospitalized because of this condition (test code = 30181-7) Whether the patient was admitted to intensive care unit (ICU) for condition of interest (test code = 40627-6) Whether patient resides in a congregate care setting (test code = 43245-3) [facility] RNA [Presence] in Respiratory specimen by DANIEL with probe dhvzdhfbo9394-97-25 01:54:24 Test Item Value Reference Range Interpretation Comments SARS-CoV-2 (COVID-19) RNA Not detected Not-Detected [Presence] in Respiratory specimen by DANIEL with probe detection (test code = 02631-0) Whether patient is employed in a healthcare setting (test code = 39880-9) Whether the patient has symptoms related to condition of interest (test code = 47849-3) Patient was hospitalized because of this condition (test code = 08758-7) Whether the patient was admitted to intensive care unit (ICU) for condition of interest (test code = 09502-9) Whether patient resides in a congregate care setting (test code = 52352-1) [facility]-CoV-2 (COVID-19) RNA [Presence] in Respiratory specimen by DANIEL with probe tngschxet0628-94-34 21:44:06 Test Item Value Reference Range Interpretation Comments SARS-CoV-2 (COVID-19) RNA Not detected Not-Detected [Presence] in Respiratory specimen by DANIEL with probe detection (test code = 82337-8) Whether patient is employed in a healthcare setting (test code = 57412-3) Whether the patient has symptoms related to condition of interest (test code = 80670-7) Patient was hospitalized because of this condition (test code = 60834-1) Whether the patient was admitted to intensive care unit (ICU) for condition of interest (test code = 91500-7) Whether patient resides in a congregate care setting (test code = 74424-9) [facility]-CoV-2 (COVID-19) RNA [Presence] in Respiratory specimen by DANIEL with probe djejysozz8091-42-61 00:36:59 Test Item Value Reference Range Interpretation Comments SARS-CoV-2 (COVID-19) RNA Not detected Not-Detected [Presence] in Respiratory specimen by DANIEL with probe detection (test code = 70972-4) [facility] (COVID-19) RNA [Presence] in Respiratory specimen by DANIEL with probe hwbamexpk8448-97-57 17:35:35 Test Item Value Reference Range Interpretation Comments SARS-CoV-2 (COVID-19) RNA Not detected Not-Detected [Presence] in Respiratory specimen by DANIEL with probe detection (test code = 91784-9) [facility]-CoV-2 (COVID-19) RNA [Presence] in Respiratory specimen by DANIEL with probe krdvypscw8527-26-94 18:03:30 Test Item Value Reference Range Interpretation Comments SARS-CoV-2 (COVID-19) RNA Not detected Not-Detected [Presence] in Respiratory specimen by DANIEL with probe detection (test code = 33594-5) [facility]-CoV-2 (COVID-19) RNA [Presence] in Respiratory specimen by DANIEL with probe ohcwsjjeo7333-19-50 10:06:03 Test Item Value Reference Range Interpretation Comments SARS-CoV-2 (COVID-19) RNA Not detected Not-Detected [Presence] in Respiratory specimen by DANIEL with probe detection (test code = 93716-7) [facility]-CoV-2 (COVID-19) RNA [Presence] in Respiratory specimen by DANIEL with probe jwtcbyoqo6636-61-45 05:11:58 Test Item Value Reference Range Interpretation Comments SARS-CoV-2 (COVID-19) RNA Not detected Not-Detected [Presence] in Respiratory specimen by DANIEL with probe detection (test code = 20462-7) [facility]-CoV-2 (COVID-19) RNA [Presence] in Respiratory specimen by DANIEL with probe jdrzmzvfo7255-29-08 03:34:16 Test Item Value Reference Range Interpretation Comments SARS-CoV-2 (COVID-19) RNA Not detected Not-Detected [Presence] in Respiratory specimen by DANIEL with probe detection (test code = 60686-9) [facility]-CoV-2 (COVID-19) RNA [Presence] in Respiratory specimen by DANIEL with probe hsfukqmzt9062-05-15 10:06:41 Test Item Value Reference Range Interpretation Comments SARS-CoV-2 (COVID-19) RNA Not detected Not-Detected [Presence] in Respiratory specimen by DANIEL with probe detection (test code = 32878-3) [facility]2020-10-14 12:33:00 Test Item Value Reference Range Interpretation Comments Chol (test code = Chol) [facility]PybxadlABMCPI2467-50-13 12:33:00 Test Item Value Reference Range Interpretation Comments HDL (test code = HDL) 37 [facility] AustinIgfmiioZDFMHS3227-25-91 12:33:00 Test Item Value Reference Range Interpretation Comments Trig (test code = Trig) 76 [facility] AustinWolsdfrUYLINL4015-72-00 12:33:00 Test Item Value Reference Range Interpretation Comments LDL (Calculated) (test code = LDL 76 (Calculated)) [facility]WrnqjhxNPXJAP9787-91-55 12:33:00 Test Item Value Reference Range Interpretation Comments CHD Risk (test code = CHD Risk) 3.5 [facility] AustinKqivtlcFSKTCZ0719-67-10 12:33:00 Test Item Value Reference Range Interpretation Comments Non HDL Chol (test code = Non HDL Chol) 92 [facility] AustinRtlgohcWLCIKI2589-49-83 12:33:00 Test Item Value Reference Range Interpretation Comments Chol (test code = Chol) 129 [facility] AustinVxezbcnNALBVR2142-53-56 12:33:00 Test Item Value Reference Range Interpretation Comments HDL (test code = HDL) 37 [facility] AustinNsbdnccSQGISO8677-56-12 12:33:00 Test Item Value Reference Range Interpretation Comments Trig (test code = Trig) 76 [facility] AustinNunprzxMXHNER9796-36-52 12:33:00 Test Item Value Reference Range Interpretation Comments LDL (Calculated) (test code = LDL 76 (Calculated)) [facility] AustinYplqzkqYBKEJS0257-78-67 12:33:00 Test Item Value Reference Range Interpretation Comments CHD Risk (test code = CHD Risk) 3.5 [facility] AustinMelnbuoCWFGXM7191-03-93 12:33:00 Test Item Value Reference Range Interpretation Comments Non HDL Chol (test code = Non HDL Chol) 92 [facility] AustinUrlptauBKQMRP9551-58-80 12:33:00 Test Item Value Reference Range Interpretation Comments Chol (test code = Chol) 129 [facility] AustinComxwnrBLYEGE2924-97-48 12:33:00 Test Item Value Reference Range Interpretation Comments HDL (test code = HDL) 37 [facility] AustinHosgvwsHCHXLQ3220-36-57 12:33:00 Test Item Value Reference Range Interpretation Comments Trig (test code = Trig) 76 [facility] AustinMwunpotHOPOEK6097-64-95 12:33:00 Test Item Value Reference Range Interpretation Comments LDL (Calculated) (test code = LDL 76 (Calculated)) [facility] AustinWqkyhvcVUOJJW2201-02-40 12:33:00 Test Item Value Reference Range Interpretation Comments CHD Risk (test code = CHD Risk) 3.5 [facility] AustinBbajmmeGHJGWB0499-84-40 12:33:00 Test Item Value Reference Range Interpretation Comments Non HDL Chol (test code = Non HDL Chol) 92 [facility] AustinDurcirzPEDORQ7866-99-03 12:33:00 Test Item Value Reference Range Interpretation Comments Chol (test code = Chol) 129 [facility] AustinWdnuqpqOVAJQI3291-96-49 12:33:00 Test Item Value Reference Range Interpretation Comments HDL (test code = HDL) 37 [facility] AustinLaigranSCCQZD0868-26-54 12:33:00 Test Item Value Reference Range Interpretation Comments Trig (test code = Trig) 76 [facility] AustinOufbcnpUSQRAS8868-97-88 12:33:00 Test Item Value Reference Range Interpretation Comments LDL (Calculated) (test code = LDL 76 (Calculated)) [facility] AustinPpemffyCCGIDK0575-92-84 12:33:00 Test Item Value Reference Range Interpretation Comments CHD Risk (test code = CHD Risk) 3.5 [facility] AustinElvlprrNQVCBW1669-48-20 12:33:00 Test Item Value Reference Range Interpretation Comments Non HDL Chol (test code = Non HDL Chol) 92 [facility] AustinRxbktveEZCOZX3621-19-11 12:33:00 Test Item Value Reference Range Interpretation Comments Chol (test code = Chol) 129 [place] [address]-10-14 12:33:00 Test Item Value Reference Range Interpretation Comments HDL (test code = HDL) 37 [place] [address]-10-14 12:33:00 Test Item Value Reference Range Interpretation Comments Trig (test code = Trig) 76 [place] [address]-10-14 12:33:00 Test Item Value Reference Range Interpretation Comments LDL (Calculated) (test code = LDL 76 (Calculated)) [place] [address]-10-14 12:33:00 Test Item Value Reference Range Interpretation Comments CHD Risk (test code = CHD Risk) 3.5 [facility] AustinHgvfitaWKJFEJ9199-03-05 12:33:00 Test Item Value Reference Range Interpretation Comments Non HDL Chol (test code = Non HDL Chol) 92 [facility] AustinPwpotfoIKHKMP7702-75-29 12:33:00 Test Item Value Reference Range Interpretation Comments Chol (test code = Chol) 129 [place] [address]-10-14 12:33:00 Test Item Value Reference Range Interpretation Comments HDL (test code = HDL) 37 [facility] AustinAaxewsgGIXBRJ5545-40-57 12:33:00 Test Item Value Reference Range Interpretation Comments Trig (test code = Trig) 76 [place] [address]-10-14 12:33:00 Test Item Value Reference Range Interpretation Comments LDL (Calculated) (test code = LDL 76 (Calculated)) [facility] AustinSvsgzdkUOZAIE1161-73-91 12:33:00 Test Item Value Reference Range Interpretation Comments CHD Risk (test code = CHD Risk) 3.5 [place] [address]-10-14 12:33:00 Test Item Value Reference Range Interpretation Comments Non HDL Chol (test code = Non HDL Chol) 92 [facility] [id number] 14:47:00 Test Item Value Reference Range Interpretation Comments Vitamin D, 25-OH, Total (test code = 37 30-100 Vitamin D, 25-OH, Total) [facility] [id number] 14:47:00 Test Item Value Reference Range Interpretation Comments U Creat mg/dL (test code = U Creat 114 20-275 mg/dL) [facility] [id number] 14:47:00 Test Item Value Reference Range Interpretation Comments U Prot/Creat (test code = U Prot/Creat) 430 21-161 [facility]2020-08-06 14:47:00 Test Item Value Reference Range Interpretation Comments U Prot/Creat (test code = U 0.430 1 0.021-0.161 Prot/Creat) [facility]2020-08-06 14:47:00 Test Item Value Reference Range Interpretation Comments U Protein (test code = U Protein) 49 5-24 [place] 810790-08-06 14:47:00 Test Item Value Reference Range Interpretation Comments Glucose Lvl (test code = Glucose Lvl) 103 65-99 [place] 810790-08-06 14:47:00 Test Item Value Reference Range Interpretation Comments BUN (test code = BUN) 24 7-25 [facility]2020-08-06 14:47:00 Test Item Value Reference Range Interpretation Comments Creatinine Lvl (test code = Creatinine 1.32 0.50-0.99 Lvl) [place] 810790-08-06 14:47:00 Test Item Value Reference Range Interpretation Comments eGFR NON-AFR. LITHUANIAN (test code = 43 eGFR NON-AFR. LITHUANIAN) [facility]2020-08-06 14:47:00 Test Item Value Reference Range Interpretation Comments eGFR (test code = eGFR 50 ) [facility]2020-08-06 14:47:00 Test Item Value Reference Range Interpretation Comments B/C Ratio (test code = B/C Ratio) 18 6-22 [facility]2020-08-06 14:47:00 Test Item Value Reference Range Interpretation Comments Sodium Lvl (test code = Sodium Lvl) 138 135-146 [facility]2020-08-06 14:47:00 Test Item Value Reference Range Interpretation Comments Potassium Lvl (test code = Potassium 4.4 3.5-5.3 Lvl) [facility]2020-08-06 14:47:00 Test Item Value Reference Range Interpretation Comments Chloride Lvl (test code = Chloride Lvl) 102 98-110 [place] 810790-08-06 14:47:00 Test Item Value Reference Range Interpretation Comments CO2 (test code = CO2) 30 20-32 [place] 810790-08-06 14:47:00 Test Item Value Reference Range Interpretation Comments Calcium Lvl (test code = Calcium Lvl) 9.4 8.6-10.4 [facility] [id number] 14:47:00 Test Item Value Reference Range Interpretation Comments Phosphorus (test code = Phosphorus) 4.8 2.5-4.5 [facility] DLDXM8930-10-10 14:47:00 Test Item Value Reference Range Interpretation Comments Albumin Lvl (test code = Albumin Lvl) 3.9 3.6-5.1 [place] 413350-08-06 14:47:00 Test Item Value Reference Range Interpretation Comments Plt Count Estimated (test code = DECREASED Plt Count Estimated) [facility]AgbwmprZJOYRVNWCS2528-42-72 14:47:00 Test Item Value Reference Range Interpretation Comments WBC X 10x3 (test code = WBC X 10x3) 7.2 3.8-10.8 [place] 413350-08-06 14:47:00 Test Item Value Reference Range Interpretation Comments RBC X 10x6 (test code = RBC X 10x6) 3.71 3.80-5.10 [place] 413350-08-06 14:47:00 Test Item Value Reference Range Interpretation Comments Hgb (test code = Hgb) 10.7 11.7-15.5 [place] 413350-08-06 14:47:00 Test Item Value Reference Range Interpretation Comments Hct (test code = Hct) 33.9 35.0-45.0 [place] 413350-08-06 14:47:00 Test Item Value Reference Range Interpretation Comments MCV (test code = MCV) 91.4 80.0-100.0 [place] [address]-08-06 14:47:00 Test Item Value Reference Range Interpretation Comments MCH (test code = MCH) 28.8 pg 27.0-33.0 [place] 413350-08-06 14:47:00 Test Item Value Reference Range Interpretation Comments MCHC (test code = MCHC) 31.6 32.0-36.0 [place] 413350-08-06 14:47:00 Test Item Value Reference Range Interpretation Comments RDW (test code = RDW) 13.9 11.0-15.0 [place] [address]-08-06 14:47:00 Test Item Value Reference Range Interpretation Comments Platelet (test code = Platelet) 110 140-400 [facility] ArlingtonZgznhthSROXOXUGLT5769-24-24 14:47:00 Test Item Value Reference Range Interpretation Comments MPV (test code = MPV) 11.7 7.5-12.5 [facility] ArlingtonFcuqdxjHSQJMJLSAN5785-56-75 14:47:00 Test Item Value Reference Range Interpretation Comments Neutrophils # (test code = Neutrophils 5414 5368-9737 #) [facility] ArlingtonTminsqkHEXQXMGIQW1494-44-90 14:47:00 Test Item Value Reference Range Interpretation Comments Lymphocytes # (test code = Lymphocytes 4872 251-5864 #) [facility] ArlingtonNjwkftaEYRCNCDFVN0438-87-63 14:47:00 Test Item Value Reference Range Interpretation Comments Monocytes # (test code = Monocytes #) 461 200-950 [facility] ArlingtonTwtvpwqPFCAZUZQJX6583-50-87 14:47:00 Test Item Value Reference Range Interpretation Comments Eosinophils # (test code = Eosinophils 122 15-500 #) [facility] ArlingtonFcuziqkOQVCGASYDV8561-37-98 14:47:00 Test Item Value Reference Range Interpretation Comments Basophils # (test code 50 See_Comment [Aut omated message] The = Basophils #) system which generated this result tra nsmitted reference range : <=200. The reference r edy was not used to int erpret this result as normal/abnormal . [facility] ArlingtonAviszniXNXBPOQVNU3543-02-09 14:47:00 Test Item Value Reference Range Interpretation Comments Segs (test code = Segs) 75.2 [facility] ArlingtonOkivlzcYAKWSXHXVE4843-88-47 14:47:00 Test Item Value Reference Range Interpretation Comments Lymphocytes (test code = Lymphocytes) 16.0 [facility] ArlingtonVmsefalROHGWPKNUP1172-23-73 14:47:00 Test Item Value Reference Range Interpretation Comments Monocytes (test code = Monocytes) 6.4 [facility] ArlingtonBaearnuIPWGXLUMLY9518-38-79 14:47:00 Test Item Value Reference Range Interpretation Comments Eosinophils (test code = Eosinophils) 1.7 [facility]YYDJTMO6069[facility] 14:47:00 Test Item Value Reference Range Interpretation Comments Basophils (test code = Basophils) 0.7 [facility]annREFER[facility] LAB VKZGZTN3658-99-04 14:47:00 Test Item Value Reference Range Interpretation Comments Result 2 (Urine Culture) See Result Comment (test code = Result 2 (Urine Culture)) [facility] TFURN7481-15-49 14:47:00 Test Item Value Reference Range Interpretation Comments UA Color (test code = UA Color) YELLOW [facility] AND OJICC5038-35-63 14:47:00 Test Item Value Reference Range Interpretation Comments UA Turbidity (test code = UA CLOUDY Turbidity) [facility] AND HPBQV0668-32-49 14:47:00 Test Item Value Reference Range Interpretation Comments UA Spec Grav (test code = UA Spec 1.017 1 1.001-1.035 Grav) [facility] AND UQEVO0376-24-47 14:47:00 Test Item Value Reference Range Interpretation Comments UA pH (test code = UA pH) 5.5 1 5.0-8.0 [facility] AND NHSQF8362-31-66 14:47:00 Test Item Value Reference Range Interpretation Comments UA Glucose (test code = UA Glucose) NEGATIVE [facility] AND HGCPO1390-38-99 14:47:00 Test Item Value Reference Range Interpretation Comments UA Bili (test code = UA Bili) NEGATIVE [facility] AND [id number] 14:47:00 Test Item Value Reference Range Interpretation Comments UA Ketones (test code = UA Ketones) NEGATIVE [facility] AND NVIKG0089-72-08 14:47:00 Test Item Value Reference Range Interpretation Comments UA Blood (test code = UA Blood) 1+ [facility] ANXSQ2218-79-39 14:47:00 Test Item Value Reference Range Interpretation Comments UA Protein (test code = UA Protein) 1+ [facility] AND OEXVY5676-70-86 14:47:00 Test Item Value Reference Range Interpretation Comments UA Nitrite (test code = UA Nitrite) POSITIVE [facility] AND DELKX2612-44-11 14:47:00 Test Item Value Reference Range Interpretation Comments UA Leuk Est (test code = UA Leuk Est) 2+ [facility] AND QLNJX1035-75-51 14:47:00 Test Item Value Reference Range Interpretation Comments UA WBC (test code = UA WBC) > OR = 60 [facility] AND CGLWE4802-30-84 14:47:00 Test Item Value Reference Range Interpretation Comments UA RBC (test code = UA RBC) 0-2 [facility] [id number] 14:47:00 Test Item Value Reference Range Interpretation Comments UA Sq Epi (test code = UA Sq Epi) NONE SEEN [facility] AND OFLZH9504-42-03 14:47:00 Test Item Value Reference Range Interpretation Comments UA Bacteria (test code = UA Bacteria) MANY [facility] AND SUOLO2300-08-22 14:47:00 Test Item Value Reference Range Interpretation Comments UA Hyal Cast (test code = UA Hyal NONE SEEN Cast) [facility] AND ODZGJ2903-13-22 14:47:00 Test Item Value Reference Range Interpretation Comments UA Reflex (test code CULTURE INDICATED - = UA Reflex) RESULTS TO FOLLOW [facility]2020-08-06 14:47:00 Test Item Value Reference Range Interpretation Comments U Creat mg/dL (test code = U Creat 114 20-275 mg/dL) [facility]2020-08-06 14:47:00 Test Item Value Reference Range Interpretation Comments U Alb (test code = U Alb) 16.7 [facility]2020-08-06 14:47:00 Test Item Value Reference Range Interpretation Comments U Alb/Crea (test code = U Alb/Crea) 146 [facility]2020-08-06 14:47:00 Test Item Value Reference Range Interpretation Comments Vitamin D, 25-OH, Total (test code = 37 30-100 Vitamin D, 25-OH, Total) [facility]2020-08-06 14:47:00 Test Item Value Reference Range Interpretation Comments U Creat mg/dL (test code = U Creat 114 20-275 mg/dL) [place] 810790-08-06 14:47:00 Test Item Value Reference Range Interpretation Comments U Prot/Creat (test code = U Prot/Creat) 430 21-161 [facility]2020-08-06 14:47:00 Test Item Value Reference Range Interpretation Comments U Prot/Creat (test code = U 0.430 1 0.021-0.161 Prot/Creat) [facility]2020-08-06 14:47:00 Test Item Value Reference Range Interpretation Comments U Protein (test code = U Protein) 49 5-24 [facility]2020-08-06 14:47:00 Test Item Value Reference Range Interpretation Comments Glucose Lvl (test code = Glucose Lvl) 103 65-99 [place] 810790-08-06 14:47:00 Test Item Value Reference Range Interpretation Comments BUN (test code = BUN) 24 7-25 [place] 810790-08-06 14:47:00 Test Item Value Reference Range Interpretation Comments Creatinine Lvl (test code = Creatinine 1.32 0.50-0.99 Lvl) [facility]2020-08-06 14:47:00 Test Item Value Reference Range Interpretation Comments eGFR NON-AFR. LITHUANIAN (test code = 43 eGFR NON-AFR. LITHUANIAN) [facility]2020-08-06 14:47:00 Test Item Value Reference Range Interpretation Comments eGFR (test code = eGFR 50 ) [facility] Sales [facility] ConceptsYADKIN VALLEY COMMUNITY [id number] 14:47:00 Test Item Value Reference Range Interpretation Comments B/C Ratio (test code = B/C Ratio) 18 6-22 [facility]2020-08-06 14:47:00 Test Item Value Reference Range Interpretation Comments Sodium Lvl (test code = Sodium Lvl) 138 135-146 [facility] CenterCoinfloor [id number] 14:47:00 Test Item Value Reference Range Interpretation Comments Potassium Lvl (test code = Potassium 4.4 3.5-5.3 Lvl) [facility] ConceptsYADKIN VALLEY COMMUN[facility] [id number] 14:47:00 Test Item Value Reference Range Interpretation Comments Chloride Lvl (test code = Chloride Lvl) 102 98-110 [facility] ArlingtonDoculogy [id number] 14:47:00 Test Item Value Reference Range Interpretation Comments CO2 (test code = CO2) 30 20-32 [place] 810790-08-06 14:47:00 Test Item Value Reference Range Interpretation Comments Calcium Lvl (test code = Calcium Lvl) 9.4 8.6-10.4 [facility] ConceptsYADKIN VALLEY COMMUNITY [id number] 14:47:00 Test Item Value Reference Range Interpretation Comments Phosphorus (test code = Phosphorus) 4.8 2.5-4.5 [facility]2020-08-06 14:47:00 Test Item Value Reference Range Interpretation Comments Albumin Lvl (test code = Albumin Lvl) 3.9 3.6-5.1 [facility] CenterTmgdvyiADSXOFXVTM8931-55-70 14:47:00 Test Item Value Reference Range Interpretation Comments Plt Count Estimated (test code = DECREASED Plt Count Estimated) [facility]landsUmneyjpFVABZENRYV7607-02-82 14:47:00 Test Item Value Reference Range Interpretation Comments WBC X 10x3 (test code = WBC X 10x3) 7.2 3.8-10.8 [place] [address]-08-06 14:47:00 Test Item Value Reference Range Interpretation Comments RBC X 10x6 (test code = RBC X 10x6) 3.71 3.80-5.10 [place] [address]-08-06 14:47:00 Test Item Value Reference Range Interpretation Comments Hgb (test code = Hgb) 10.7 11.7-15.5 [place] [address]-08-06 14:47:00 Test Item Value Reference Range Interpretation Comments Hct (test code = Hct) 33.9 35.0-45.0 [place] [address]-08-06 14:47:00 Test Item Value Reference Range Interpretation Comments MCV (test code = MCV) 91.4 80.0-100.0 [place] [address]-08-06 14:47:00 Test Item Value Reference Range Interpretation Comments MCH (test code = MCH) 28.8 pg 27.0-33.0 [facility]landsYsspadbWARFWJKZAY6540-69-47 14:47:00 Test Item Value Reference Range Interpretation Comments MCHC (test code = MCHC) 31.6 32.0-36.0 [place] 413350-08-06 14:47:00 Test Item Value Reference Range Interpretation Comments RDW (test code = RDW) 13.9 11.0-15.0 [place] [address]-08-06 14:47:00 Test Item Value Reference Range Interpretation Comments Platelet (test code = Platelet) 110 140-400 [place] 413350-08-06 14:47:00 Test Item Value Reference Range Interpretation Comments MPV (test code = MPV) 11.7 7.5-12.5 [place] [address]-08-06 14:47:00 Test Item Value Reference Range Interpretation Comments Neutrophils # (test code = Neutrophils 5414 5725-3466 #) [facility]landsZhtzphfKFGQNYSLCI3392-16-96 14:47:00 Test Item Value Reference Range Interpretation Comments Lymphocytes # (test code = Lymphocytes 9079 843-9256 #) [facility]KeckyepZSNBAAQMFO6843-61-29 14:47:00 Test Item Value Reference Range Interpretation Comments Monocytes # (test code = Monocytes #) 461 200-950 [facility] CenterNrlwrxdZRKONQDXXX4607-18-43 14:47:00 Test Item Value Reference Range Interpretation Comments Eosinophils # (test code = Eosinophils 122 15-500 #) [facility] HospitalRndwxsjNTWYTBZCUT0705-94-04 14:47:00 Test Item Value Reference Range Interpretation Comments Basophils # (test code 50 See_Comment [Aut omated message] The = Basophils #) system which generated this result tra nsmitted reference range : <=200. The reference r edy was not used to int erpret this result as normal/abnormal . [facility] HospitalNeajksxOGQEYDRNLK6155-13-10 14:47:00 Test Item Value Reference Range Interpretation Comments Segs (test code = Segs) 75.2 [facility]landsNxhrtiaKOQUGUJQWX7933-72-15 14:47:00 Test Item Value Reference Range Interpretation Comments Lymphocytes (test code = Lymphocytes) 16.0 [facility] HospitalUyvceqpSUYLBCSYLV8119-64-69 14:47:00 Test Item Value Reference Range Interpretation Comments Monocytes (test code = Monocytes) 6.4 [facility] HospitalGaviyowVWWJTAKZVG1394-92-47 14:47:00 Test Item Value Reference Range Interpretation Comments Eosinophils (test code = Eosinophils) 1.7 [facility] CenterCqhhnktHWLEPHXLJR2926-91-03 14:47:00 Test Item Value Reference Range Interpretation Comments Basophils (test code = Basophils) 0.7 [facility] CenterREFER[facility] LAB [id number] 14:47:00 Test Item Value Reference Range Interpretation Comments Result 2 (Urine Culture) See Result Comment (test code = Result 2 (Urine Culture)) [facility] AND [id number] 14:47:00 Test Item Value Reference Range Interpretation Comments UA Color (test code = UA Color) YELLOW [facility] [id number] 14:47:00 Test Item Value Reference Range Interpretation Comments UA Turbidity (test code = UA CLOUDY Turbidity) [facility] AND [id number] 14:47:00 Test Item Value Reference Range Interpretation Comments UA Spec Grav (test code = UA Spec 1.017 1 1.001-1.035 Grav) [facility] AND [id number] 14:47:00 Test Item Value Reference Range Interpretation Comments UA pH (test code = UA pH) 5.5 1 5.0-8.0 [facility] [id number] 14:47:00 Test Item Value Reference Range Interpretation Comments UA Glucose (test code = UA Glucose) NEGATIVE [facility] [id number] 14:47:00 Test Item Value Reference Range Interpretation Comments UA Bili (test code = UA Bili) NEGATIVE [facility] [id number] 14:47:00 Test Item Value Reference Range Interpretation Comments UA Ketones (test code = UA Ketones) NEGATIVE [facility] [id number] 14:47:00 Test Item Value Reference Range Interpretation Comments UA Blood (test code = UA Blood) 1+ [facility] [id number] 14:47:00 Test Item Value Reference Range Interpretation Comments UA Protein (test code = UA Protein) 1+ [facility] [id number] 14:47:00 Test Item Value Reference Range Interpretation Comments UA Nitrite (test code = UA Nitrite) POSITIVE [facility] [id number] 14:47:00 Test Item Value Reference Range Interpretation Comments UA Leuk Est (test code = UA Leuk Est) 2+ [facility] [id number] 14:47:00 Test Item Value Reference Range Interpretation Comments UA WBC (test code = UA WBC) > OR = 60 [facility] [id number] 14:47:00 Test Item Value Reference Range Interpretation Comments UA RBC (test code = UA RBC) 0-2 [facility] [id number] 14:47:00 Test Item Value Reference Range Interpretation Comments UA Sq Epi (test code = UA Sq Epi) NONE SEEN [facility] [id number] 14:47:00 Test Item Value Reference Range Interpretation Comments UA Bacteria (test code = UA Bacteria) MANY [facility] [id number] 14:47:00 Test Item Value Reference Range Interpretation Comments UA Hyal Cast (test code = UA Hyal NONE SEEN Cast) [facility] [id number] 14:47:00 Test Item Value Reference Range Interpretation Comments UA Reflex (test code CULTURE INDICATED - = UA Reflex) RESULTS TO FOLLOW [facility] [id number] 14:47:00 Test Item Value Reference Range Interpretation Comments U Creat mg/dL (test code = U Creat 114 20-275 mg/dL) [place] [address]-08-06 14:47:00 Test Item Value Reference Range Interpretation Comments U Alb (test code = U Alb) 16.7 [place] [address]-08-06 14:47:00 Test Item Value Reference Range Interpretation Comments U Alb/Crea (test code = U Alb/Crea) 146 [place] [address]-08-06 14:47:00 Test Item Value Reference Range Interpretation Comments Vitamin D, 25-OH, Total (test code = 37 30-100 Vitamin D, 25-OH, Total) [place] [address]-08-06 14:47:00 Test Item Value Reference Range Interpretation Comments U Creat mg/dL (test code = U Creat 114 20-275 mg/dL) [place] [address]-08-06 14:47:00 Test Item Value Reference Range Interpretation Comments U Prot/Creat (test code = U Prot/Creat) 430 21-161 [place] [address]-08-06 14:47:00 Test Item Value Reference Range Interpretation Comments U Prot/Creat (test code = U 0.430 1 0.021-0.161 Prot/Creat) [place] 810790-08-06 14:47:00 Test Item Value Reference Range Interpretation Comments U Protein (test code = U Protein) 49 5-24 [place] 810790-08-06 14:47:00 Test Item Value Reference Range Interpretation Comments Glucose Lvl (test code = Glucose Lvl) 103 65-99 [place] 810790-08-06 14:47:00 Test Item Value Reference Range Interpretation Comments BUN (test code = BUN) 24 7-25 [place] [address]-08-06 14:47:00 Test Item Value Reference Range Interpretation Comments Creatinine Lvl (test code = Creatinine 1.32 0.50-0.99 Lvl) [place] 810790-08-06 14:47:00 Test Item Value Reference Range Interpretation Comments eGFR NON-AFR. LITHUANIAN (test code = 43 eGFR NON-AFR. LITHUANIAN) [place] 810790-08-06 14:47:00 Test Item Value Reference Range Interpretation Comments eGFR (test code = eGFR 50 ) [place] 810790-08-06 14:47:00 Test Item Value Reference Range Interpretation Comments B/C Ratio (test code = B/C Ratio) 18 6-22 [place] 810790-08-06 14:47:00 Test Item Value Reference Range Interpretation Comments Sodium Lvl (test code = Sodium Lvl) 138 135-146 [place] 810790-08-06 14:47:00 Test Item Value Reference Range Interpretation Comments Potassium Lvl (test code = Potassium 4.4 3.5-5.3 Lvl) [place] 810790-08-06 14:47:00 Test Item Value Reference Range Interpretation Comments Chloride Lvl (test code = Chloride Lvl) 102 98-110 [place] 810790-08-06 14:47:00 Test Item Value Reference Range Interpretation Comments CO2 (test code = CO2) 30 20-32 [place] 810790-08-06 14:47:00 Test Item Value Reference Range Interpretation Comments Calcium Lvl (test code = Calcium Lvl) 9.4 8.6-10.4 [place] 810790-08-06 14:47:00 Test Item Value Reference Range Interpretation Comments Phosphorus (test code = Phosphorus) 4.8 2.5-4.5 [place] 810790-08-06 14:47:00 Test Item Value Reference Range Interpretation Comments Albumin Lvl (test code = Albumin Lvl) 3.9 3.6-5.1 [place] [address]-08-06 14:47:00 Test Item Value Reference Range Interpretation Comments Plt Count Estimated (test code = DECREASED Plt Count Estimated) [place] [address]-08-06 14:47:00 Test Item Value Reference Range Interpretation Comments WBC X 10x3 (test code = WBC X 10x3) 7.2 3.8-10.8 [place] [address]-08-06 14:47:00 Test Item Value Reference Range Interpretation Comments RBC X 10x6 (test code = RBC X 10x6) 3.71 3.80-5.10 [place] [address]-08-06 14:47:00 Test Item Value Reference Range Interpretation Comments Hgb (test code = Hgb) 10.7 11.7-15.5 [facility]landsAbrushbXYOSNPTOPY1926-31-57 14:47:00 Test Item Value Reference Range Interpretation Comments Hct (test code = Hct) 33.9 35.0-45.0 [facility]landsOqaldqiDFPFJAWOGD2190-96-90 14:47:00 Test Item Value Reference Range Interpretation Comments MCV (test code = MCV) 91.4 80.0-100.0 [facility]landsSdqjhemQQNWOBMASY8412-78-56 14:47:00 Test Item Value Reference Range Interpretation Comments MCH (test code = MCH) 28.8 pg 27.0-33.0 [facility]landsZtbhmnmWXBEWYFOPS5869-14-54 14:47:00 Test Item Value Reference Range Interpretation Comments MCHC (test code = MCHC) 31.6 32.0-36.0 [facility]landsUmzlkvtEKWWYMIDCA5513-40-52 14:47:00 Test Item Value Reference Range Interpretation Comments RDW (test code = RDW) 13.9 11.0-15.0 [facility]landsBtqkkhnGVLDNJIANN1177-30-50 14:47:00 Test Item Value Reference Range Interpretation Comments Platelet (test code = Platelet) 110 140-400 [facility]landsDsbnsphNEUUEUTUQW3530-05-54 14:47:00 Test Item Value Reference Range Interpretation Comments MPV (test code = MPV) 11.7 7.5-12.5 [facility]landsLsshrosXPVGZAQBUM8456-05-92 14:47:00 Test Item Value Reference Range Interpretation Comments Neutrophils # (test code = Neutrophils 5414 1271-1735 #) [facility]landsHuphsixJTHXTHUQCN6485-28-91 14:47:00 Test Item Value Reference Range Interpretation Comments Lymphocytes # (test code = Lymphocytes [phone] #) [facility]landsBfscdbsPTTFTNWFUG4487-74-05 14:47:00 Test Item Value Reference Range Interpretation Comments Monocytes # (test code = Monocytes #) 461 200-950 [facility]landsEgsgfpkHOCBGURTRY4041-54-87 14:47:00 Test Item Value Reference Range Interpretation Comments Eosinophils # (test code = Eosinophils 122 15-500 #) [facility]landsPqdmknrXXVLTBLNCD7111-83-49 14:47:00 Test Item Value Reference Range Interpretation Comments Basophils # (test code 50 See_Comment [Aut omated message] The = Basophils #) system which generated this result tra nsmitted reference range : <=200. The reference r edy was not used to int erpret this result as normal/abnormal . [facility] HospitalReiqageGVERIJXLME7554-37-15 14:47:00 Test Item Value Reference Range Interpretation Comments Segs (test code = Segs) 75.2 [facility] HospitalZnkqwvpFEUPGOTNSZ3453-53-77 14:47:00 Test Item Value Reference Range Interpretation Comments Lymphocytes (test code = Lymphocytes) 16.0 [facility]landsGpgvqnmVTENOCIEEA0256-46-60 14:47:00 Test Item Value Reference Range Interpretation Comments Monocytes (test code = Monocytes) 6.4 [facility] HospitalNxgqqlsAFKLWGPKWO2304-00-69 14:47:00 Test Item Value Reference Range Interpretation Comments Eosinophils (test code = Eosinophils) 1.7 [facility] HospitalIgyuzqjHTEIEQMNAW5373-36-45 14:47:00 Test Item Value Reference Range Interpretation Comments Basophils (test code = Basophils) 0.7 [facility] [id number] 14:47:00 Test Item Value Reference Range Interpretation Comments Result 2 (Urine Culture) See Result Comment (test code = Result 2 (Urine Culture)) [facility] AND [id number] 14:47:00 Test Item Value Reference Range Interpretation Comments UA Color (test code = UA Color) YELLOW [facility] AND [id number] 14:47:00 Test Item Value Reference Range Interpretation Comments UA Turbidity (test code = UA CLOUDY Turbidity) [facility] AND [id number] 14:47:00 Test Item Value Reference Range Interpretation Comments UA Spec Grav (test code = UA Spec 1.017 1 1.001-1.035 Grav) [facility] AND [id number] 14:47:00 Test Item Value Reference Range Interpretation Comments UA pH (test code = UA pH) 5.5 1 5.0-8.0 [facility] AND [id number] 14:47:00 Test Item Value Reference Range Interpretation Comments UA Glucose (test code = UA Glucose) NEGATIVE [facility] AND [id number] 14:47:00 Test Item Value Reference Range Interpretation Comments UA Bili (test code = UA Bili) NEGATIVE [facility] AND [id number] 14:47:00 Test Item Value Reference Range Interpretation Comments UA Ketones (test code = UA Ketones) NEGATIVE [facility] AND [id number] 14:47:00 Test Item Value Reference Range Interpretation Comments UA Blood (test code = UA Blood) 1+ [facility] [id number] 14:47:00 Test Item Value Reference Range Interpretation Comments UA Protein (test code = UA Protein) 1+ [facility] [id number] 14:47:00 Test Item Value Reference Range Interpretation Comments UA Nitrite (test code = UA Nitrite) POSITIVE [facility] [id number] 14:47:00 Test Item Value Reference Range Interpretation Comments UA Leuk Est (test code = UA Leuk Est) 2+ [facility] [id number] 14:47:00 Test Item Value Reference Range Interpretation Comments UA WBC (test code = UA WBC) > OR = 60 [facility] [id number] 14:47:00 Test Item Value Reference Range Interpretation Comments UA RBC (test code = UA RBC) 0-2 [facility] [id number] 14:47:00 Test Item Value Reference Range Interpretation Comments UA Sq Epi (test code = UA Sq Epi) NONE SEEN [facility] [id number] 14:47:00 Test Item Value Reference Range Interpretation Comments UA Bacteria (test code = UA Bacteria) MANY [facility] [id number] 14:47:00 Test Item Value Reference Range Interpretation Comments UA Hyal Cast (test code = UA Hyal NONE SEEN Cast) [facility] [id number] 14:47:00 Test Item Value Reference Range Interpretation Comments UA Reflex (test code CULTURE INDICATED - = UA Reflex) RESULTS TO FOLLOW [facility] [id number] 14:47:00 Test Item Value Reference Range Interpretation Comments U Creat mg/dL (test code = U Creat 114 20-275 mg/dL) [facility] [id number] 14:47:00 Test Item Value Reference Range Interpretation Comments U Alb (test code = U Alb) 16.7 [facility] [id number] 14:47:00 Test Item Value Reference Range Interpretation Comments U Alb/Crea (test code = U Alb/Crea) 146 [facility]ann[facility] [id number] 14:47:00 Test Item Value Reference Range Interpretation Comments Vitamin D, 25-OH, Total (test code = 37 30-100 Vitamin D, 25-OH, Total) [place] 810790-08-06 14:47:00 Test Item Value Reference Range Interpretation Comments U Creat mg/dL (test code = U Creat 114 20-275 mg/dL) [place] 810790-08-06 14:47:00 Test Item Value Reference Range Interpretation Comments U Prot/Creat (test code = U Prot/Creat) 430 21-161 [place] 810790-08-06 14:47:00 Test Item Value Reference Range Interpretation Comments U Prot/Creat (test code = U 0.430 1 0.021-0.161 Prot/Creat) [place] 810790-08-06 14:47:00 Test Item Value Reference Range Interpretation Comments U Protein (test code = U Protein) 49 5-24 [place] 810790-08-06 14:47:00 Test Item Value Reference Range Interpretation Comments Glucose Lvl (test code = Glucose Lvl) 103 65-99 [place] 810790-08-06 14:47:00 Test Item Value Reference Range Interpretation Comments BUN (test code = BUN) 24 7-25 [place] 810790-08-06 14:47:00 Test Item Value Reference Range Interpretation Comments Creatinine Lvl (test code = Creatinine 1.32 0.50-0.99 Lvl) [place] 810790-08-06 14:47:00 Test Item Value Reference Range Interpretation Comments eGFR NON-AFR. LITHUANIAN (test code = 43 eGFR NON-AFR. LITHUANIAN) [place] 810790-08-06 14:47:00 Test Item Value Reference Range Interpretation Comments eGFR (test code = eGFR 50 ) [place] 810790-08-06 14:47:00 Test Item Value Reference Range Interpretation Comments B/C Ratio (test code = B/C Ratio) 18 6-22 [place] 810790-08-06 14:47:00 Test Item Value Reference Range Interpretation Comments Sodium Lvl (test code = Sodium Lvl) 138 135-146 [place] 810790-08-06 14:47:00 Test Item Value Reference Range Interpretation Comments Potassium Lvl (test code = Potassium 4.4 3.5-5.3 Lvl) [facility]2020-08-06 14:47:00 Test Item Value Reference Range Interpretation Comments Chloride Lvl (test code = Chloride Lvl) 102 98-110 [place] 810790-08-06 14:47:00 Test Item Value Reference Range Interpretation Comments CO2 (test code = CO2) 30 20-32 [place] 810790-08-06 14:47:00 Test Item Value Reference Range Interpretation Comments Calcium Lvl (test code = Calcium Lvl) 9.4 8.6-10.4 [place] 810790-08-06 14:47:00 Test Item Value Reference Range Interpretation Comments Phosphorus (test code = Phosphorus) 4.8 2.5-4.5 [place] 810790-08-06 14:47:00 Test Item Value Reference Range Interpretation Comments Albumin Lvl (test code = Albumin Lvl) 3.9 3.6-5.1 [place] [address]-08-06 14:47:00 Test Item Value Reference Range Interpretation Comments Plt Count Estimated (test code = DECREASED Plt Count Estimated) [place] 413350-08-06 14:47:00 Test Item Value Reference Range Interpretation Comments WBC X 10x3 (test code = WBC X 10x3) 7.2 3.8-10.8 [place] [address]-08-06 14:47:00 Test Item Value Reference Range Interpretation Comments RBC X 10x6 (test code = RBC X 10x6) 3.71 3.80-5.10 [place] [address]-08-06 14:47:00 Test Item Value Reference Range Interpretation Comments Hgb (test code = Hgb) 10.7 11.7-15.5 [place] [address]-08-06 14:47:00 Test Item Value Reference Range Interpretation Comments Hct (test code = Hct) 33.9 35.0-45.0 [place] [address]-08-06 14:47:00 Test Item Value Reference Range Interpretation Comments MCV (test code = MCV) 91.4 80.0-100.0 [place] [address]-08-06 14:47:00 Test Item Value Reference Range Interpretation Comments MCH (test code = MCH) 28.8 pg 27.0-33.0 [facility]landsBmymvmpTAFRCJCTQW0707-13-73 14:47:00 Test Item Value Reference Range Interpretation Comments MCHC (test code = MCHC) 31.6 32.0-36.0 [facility]landsDkglzpmCCVJDZIHNF9455-26-57 14:47:00 Test Item Value Reference Range Interpretation Comments RDW (test code = RDW) 13.9 11.0-15.0 [facility]landsJntzufrSSFSVVGSQM6488-69-51 14:47:00 Test Item Value Reference Range Interpretation Comments Platelet (test code = Platelet) 110 140-400 [facility]landsTlqrrvtNPIOMHACII0221-59-35 14:47:00 Test Item Value Reference Range Interpretation Comments MPV (test code = MPV) 11.7 7.5-12.5 [facility]landsGvwbzumWSMINMNBZE5707-56-35 14:47:00 Test Item Value Reference Range Interpretation Comments Neutrophils # (test code = Neutrophils 5414 3653-2428 #) [facility]landsMgpjehlUNZOXREHBE8976-44-15 14:47:00 Test Item Value Reference Range Interpretation Comments Lymphocytes # (test code = Lymphocytes [phone] #) [facility]landsFlfsdpmZXQJQWSVZE3216-04-22 14:47:00 Test Item Value Reference Range Interpretation Comments Monocytes # (test code = Monocytes #) 461 200-950 [facility]landsKvptkulIZFPNQDJYI9047-20-25 14:47:00 Test Item Value Reference Range Interpretation Comments Eosinophils # (test code = Eosinophils 122 15-500 #) [facility]landsWkgqralWKWOXDFLKN9987-29-95 14:47:00 Test Item Value Reference Range Interpretation Comments Basophils # (test code 50 See_Comment [Aut omated message] The = Basophils #) system which generated this result tra nsmitted reference range : <=200. The reference r edy was not used to int erpret this result as normal/abnormal . [facility]landsNgcnjnzLVYIUOWODP2328-49-96 14:47:00 Test Item Value Reference Range Interpretation Comments Segs (test code = Segs) 75.2 [facility]landsQruzqdzNSQWLIUHLK9903-54-18 14:47:00 Test Item Value Reference Range Interpretation Comments Lymphocytes (test code = Lymphocytes) 16.0 [place] 413350-08-06 14:47:00 Test Item Value Reference Range Interpretation Comments Monocytes (test code = Monocytes) 6.4 [facility]landsWxleyvuLFDKODNRMS1406-13-00 14:47:00 Test Item Value Reference Range Interpretation Comments Eosinophils (test code = Eosinophils) 1.7 [facility] ArlingtonJiprokjKXCRMORXDW2023-71-78 14:47:00 Test Item Value Reference Range Interpretation Comments Basophils (test code = Basophils) 0.7 [facility] [id number] 14:47:00 Test Item Value Reference Range Interpretation Comments Result 2 (Urine Culture) See Result Comment (test code = Result 2 (Urine Culture)) [facility] AND [id number] 14:47:00 Test Item Value Reference Range Interpretation Comments UA Color (test code = UA Color) YELLOW [facility] AND [id number] 14:47:00 Test Item Value Reference Range Interpretation Comments UA Turbidity (test code = UA CLOUDY Turbidity) [facility] AND [id number] 14:47:00 Test Item Value Reference Range Interpretation Comments UA Spec Grav (test code = UA Spec 1.017 1 1.001-1.035 Grav) [facility] AND [id number] 14:47:00 Test Item Value Reference Range Interpretation Comments UA pH (test code = UA pH) 5.5 1 5.0-8.0 [facility] AND [id number] 14:47:00 Test Item Value Reference Range Interpretation Comments UA Glucose (test code = UA Glucose) NEGATIVE [facility] AND [id number] 14:47:00 Test Item Value Reference Range Interpretation Comments UA Bili (test code = UA Bili) NEGATIVE [facility] AND [id number] 14:47:00 Test Item Value Reference Range Interpretation Comments UA Ketones (test code = UA Ketones) NEGATIVE [facility] AND [id number] 14:47:00 Test Item Value Reference Range Interpretation Comments UA Blood (test code = UA Blood) 1+ [facility] AND [id number] 14:47:00 Test Item Value Reference Range Interpretation Comments UA Protein (test code = UA Protein) 1+ [facility] AND [id number] 14:47:00 Test Item Value Reference Range Interpretation Comments UA Nitrite (test code = UA Nitrite) POSITIVE [facility] AND [id number] 14:47:00 Test Item Value Reference Range Interpretation Comments UA Leuk Est (test code = UA Leuk Est) 2+ [facility] [id number] 14:47:00 Test Item Value Reference Range Interpretation Comments UA WBC (test code = UA WBC) > [facility] = 60 [facility] [id number] 14:47:00 Test Item Value Reference Range Interpretation Comments UA RBC (test code = UA RBC) 0-2 [facility] [id number] 14:47:00 Test Item Value Reference Range Interpretation Comments UA Sq Epi (test code = UA Sq Epi) [facility]ONE [facility]EN [facility] [id number] 14:47:00 Test Item Value Reference Range Interpretation Comments UA Bacteria (test code = UA Bacteria) MANY [facility] [id number] 14:47:00 Test Item Value Reference Range Interpretation Comments UA Hyal Cast (test code = UA Hyal NONE SEEN Cast) [facility] AND [id number] 14:47:00 Test Item Value Reference Range Interpretation Comments UA Reflex (test code CULTURE INDICATED - = UA Reflex) RESULTS TO FOLLOW [facility]2020-08-06 14:47:00 Test Item Value Reference Range Interpretation Comments U Creat mg/dL (test code = U Creat 114 20-275 mg/dL) [facility]2020-08-06 14:47:00 Test Item Value Reference Range Interpretation Comments U Alb (test code = U Alb) 16.7 [facility]2020-08-06 14:47:00 Test Item Value Reference Range Interpretation Comments U Alb/Crea (test code = U Alb/Crea) 146 [facility] [id number] 14:47:00 Test Item Value Reference Range Interpretation Comments Vitamin D, 25-OH, Total (test code = 37 30-100 Vitamin D, 25-OH, Total) [facility] [id number] 14:47:00 Test Item Value Reference Range Interpretation Comments U Creat mg/dL (test code = U Creat 114 20-275 mg/dL) [facility]2020-08-06 14:47:00 Test Item Value Reference Range Interpretation Comments U Prot/Creat (test code = U Prot/Creat) 430 21-161 [facility] [id number] 14:47:00 Test Item Value Reference Range Interpretation Comments U Prot/Creat (test code = U 0.430 1 0.021-0.161 Prot/Creat) [facility]2020-08-06 14:47:00 Test Item Value Reference Range Interpretation Comments U Protein (test code = U Protein) 49 5-24 [place] 810790-08-06 14:47:00 Test Item Value Reference Range Interpretation Comments Glucose Lvl (test code = Glucose Lvl) 103 65-99 [facility]2020-08-06 14:47:00 Test Item Value Reference Range Interpretation Comments BUN (test code = BUN) 24 7-25 [facility]2020-08-06 14:47:00 Test Item Value Reference Range Interpretation Comments Creatinine Lvl (test code = Creatinine 1.32 0.50-0.99 Lvl) [facility]2020-08-06 14:47:00 Test Item Value Reference Range Interpretation Comments eGFR NON-AFR. LITHUANIAN (test code = 43 eGFR NON-AFR. LITHUANIAN) [facility]2020-08-06 14:47:00 Test Item Value Reference Range Interpretation Comments eGFR (test code = eGFR 50 ) [facility]2020-08-06 14:47:00 Test Item Value Reference Range Interpretation Comments B/C Ratio (test code = B/C Ratio) 18 6-22 [facility]2020-08-06 14:47:00 Test Item Value Reference Range Interpretation Comments Sodium Lvl (test code = Sodium Lvl) 138 135-146 [facility]2020-08-06 14:47:00 Test Item Value Reference Range Interpretation Comments Potassium Lvl (test code = Potassium 4.4 3.5-5.3 Lvl) [facility]2020-08-06 14:47:00 Test Item Value Reference Range Interpretation Comments Chloride Lvl (test code = Chloride Lvl) 102 98-110 [facility]2020-08-06 14:47:00 Test Item Value Reference Range Interpretation Comments CO2 (test code = CO2) 30 20-32 [facility]2020-08-06 14:47:00 Test Item Value Reference Range Interpretation Comments Calcium Lvl (test code = Calcium Lvl) 9.4 8.6-10.4 [facility]2020-08-06 14:47:00 Test Item Value Reference Range Interpretation Comments Phosphorus (test code = Phosphorus) 4.8 2.5-4.5 [facility] [id number] 14:47:00 Test Item Value Reference Range Interpretation Comments Albumin Lvl (test code = Albumin Lvl) 3.9 3.6-5.1 [place] 413350-08-06 14:47:00 Test Item Value Reference Range Interpretation Comments Plt Count Estimated (test code = DECREASED Plt Count Estimated) [facility]landsBfpgmiaKSPVFTWNVY2596-00-23 14:47:00 Test Item Value Reference Range Interpretation Comments WBC X 10x3 (test code = WBC X 10x3) 7.2 3.8-10.8 [place] 413350-08-06 14:47:00 Test Item Value Reference Range Interpretation Comments RBC X 10x6 (test code = RBC X 10x6) 3.71 3.80-5.10 [place] 413350-08-06 14:47:00 Test Item Value Reference Range Interpretation Comments Hgb (test code = Hgb) 10.7 11.7-15.5 [facility]landsLkzemdqVTBWCNUSZF9868-54-74 14:47:00 Test Item Value Reference Range Interpretation Comments Hct (test code = Hct) 33.9 35.0-45.0 [facility]landsLnbschpNCALGYFFFD5631-10-25 14:47:00 Test Item Value Reference Range Interpretation Comments MCV (test code = MCV) 91.4 80.0-100.0 [place] 413350-08-06 14:47:00 Test Item Value Reference Range Interpretation Comments MCH (test code = MCH) 28.8 pg 27.0-33.0 [place] [address]-08-06 14:47:00 Test Item Value Reference Range Interpretation Comments MCHC (test code = MCHC) 31.6 32.0-36.0 [place] 413350-08-06 14:47:00 Test Item Value Reference Range Interpretation Comments RDW (test code = RDW) 13.9 11.0-15.0 [facility]landsJpcizddBMEXZWXYXQ8351-96-06 14:47:00 Test Item Value Reference Range Interpretation Comments Platelet (test code = Platelet) 110 140-400 [place] 413350-08-06 14:47:00 Test Item Value Reference Range Interpretation Comments MPV (test code = MPV) 11.7 7.5-12.5 [facility] CenterOhtvlmyINQOKKHGYG6756-03-81 14:47:00 Test Item Value Reference Range Interpretation Comments Neutrophils # (test code = Neutrophils 5414 0383-2323 #) [facility] ArlingtonWwiawfcPPGSSGUJXK5192-98-72 14:47:00 Test Item Value Reference Range Interpretation Comments Lymphocytes # (test code = Lymphocytes 0013 584-5384 #) [facility] ArlingtonNhysoggNQPYQAGYOS3618-99-64 14:47:00 Test Item Value Reference Range Interpretation Comments Monocytes # (test code = Monocytes #) 461 200-950 [facility] ArlingtonWvvzvypBENGEVVYQA3870-13-96 14:47:00 Test Item Value Reference Range Interpretation Comments Eosinophils # (test code = Eosinophils 122 15-500 #) [facility]OXJGHXWL7688-[facility] 14:47:00 Test Item Value Reference Range Interpretation Comments Basophils # (test code 50 See_Comment [Aut omated message] The = Basophils #) system which generated this result tra nsmitted reference range : <=200. The reference r edy was not used to int erpret this result as normal/abnormal . [facility] CenterQlzjspyGEGMOWQAEU4393-56-90 14:47:00 Test Item Value Reference Range Interpretation Comments Segs (test code = Segs) 75.2 [facility] CenterMmfeyctOOVPDSOSTT7197-00-62 14:47:00 Test Item Value Reference Range Interpretation Comments Lymphocytes (test code = Lymphocytes) 16.0 [facility] ArlingtonYfzvnxpDRRNWGMFYX4979-67-63 14:47:00 Test Item Value Reference Range Interpretation Comments Monocytes (test code = Monocytes) 6.4 [facility] ArlingtonReupnmmOVLEUZUWYN0734-10-34 14:47:00 Test Item Value Reference Range Interpretation Comments Eosinophils (test code = Eosinophils) 1.7 [facility] ArlingtonMaigpdrHENQURPUBZ4919-45-22 14:47:00 Test Item Value Reference Range Interpretation Comments Basophils (test code = Basophils) 0.7 [facility] [id number] 14:47:00 Test Item Value Reference Range Interpretation Comments Result 2 (Urine Culture) See Result Comment (test code = Result 2 (Urine Culture)) [facility] [id number] 14:47:00 Test Item Value Reference Range Interpretation Comments UA Color (test code = UA Color) YELLOW [facility] [id number] 14:47:00 Test Item Value Reference Range Interpretation Comments UA Turbidity (test code = UA CLOUDY Turbidity) [facility] [id number] 14:47:00 Test Item Value Reference Range Interpretation Comments UA Spec Grav (test code = UA Spec 1.017 1 1.001-1.035 Grav) [facility] [id number] 14:47:00 Test Item Value Reference Range Interpretation Comments UA pH (test code = UA pH) 5.5 1 5.0-8.0 [facility] [id number] 14:47:00 Test Item Value Reference Range Interpretation Comments UA Glucose (test code = UA Glucose) NEGATIVE [facility] [id number] 14:47:00 Test Item Value Reference Range Interpretation Comments UA Bili (test code = UA Bili) NEGATIVE [facility] [id number] 14:47:00 Test Item Value Reference Range Interpretation Comments UA Ketones (test code = UA Ketones) NEGATIVE [facility] [id number] 14:47:00 Test Item Value Reference Range Interpretation Comments UA Blood (test code = UA Blood) 1+ [facility] [id number] 14:47:00 Test Item Value Reference Range Interpretation Comments UA Protein (test code = UA Protein) 1+ [facility] [id number] 14:47:00 Test Item Value Reference Range Interpretation Comments UA Nitrite (test code = UA Nitrite) POSITIVE [facility] [id number] 14:47:00 Test Item Value Reference Range Interpretation Comments UA Leuk Est (test code = UA Leuk Est) 2+ [facility] [id number] 14:47:00 Test Item Value Reference Range Interpretation Comments UA WBC (test code = UA WBC) > OR = 60 [facility] [id number] 14:47:00 Test Item Value Reference Range Interpretation Comments UA RBC (test code = UA RBC) 0-2 [facility] [id number] 14:47:00 Test Item Value Reference Range Interpretation Comments UA Sq Epi (test code = UA Sq Epi) NONE SEEN [facility] [id number] 14:47:00 Test Item Value Reference Range Interpretation Comments UA Bacteria (test code = UA Bacteria) MANY [facility] AND [id number] 14:47:00 Test Item Value Reference Range Interpretation Comments UA Hyal Cast (test code = UA Hyal NONE SEEN Cast) [facility] AND [id number] 14:47:00 Test Item Value Reference Range Interpretation Comments UA Reflex (test code CULTURE INDICATED - = UA Reflex) RESULTS TO FOLLOW [facility]2020-08-06 14:47:00 Test Item Value Reference Range Interpretation Comments U Creat mg/dL (test code = U Creat 114 20-275 mg/dL) [place] 485400-08-06 14:47:00 Test Item Value Reference Range Interpretation Comments U Alb (test code = U Alb) 16.7 [place] 485400-08-06 14:47:00 Test Item Value Reference Range Interpretation Comments U Alb/Crea (test code = U Alb/Crea) 146 [facility]2020-08-06 14:47:00 Test Item Value Reference Range Interpretation Comments Vitamin D, 25-OH, Total (test code = 37 30-100 Vitamin D, 25-OH, Total) [place] 810790-08-06 14:47:00 Test Item Value Reference Range Interpretation Comments U Creat mg/dL (test code = U Creat 114 20-275 mg/dL) [place] 810790-08-06 14:47:00 Test Item Value Reference Range Interpretation Comments U Prot/Creat (test code = U Prot/Creat) 430 21-161 [place] 810790-08-06 14:47:00 Test Item Value Reference Range Interpretation Comments U Prot/Creat (test code = U 0.430 1 0.021-0.161 Prot/Creat) [place] 810790-08-06 14:47:00 Test Item Value Reference Range Interpretation Comments U Protein (test code = U Protein) 49 5-24 [place] 810790-08-06 14:47:00 Test Item Value Reference Range Interpretation Comments Glucose Lvl (test code = Glucose Lvl) 103 65-99 [place] 810790-08-06 14:47:00 Test Item Value Reference Range Interpretation Comments BUN (test code = BUN) 24 7-25 [facility]2020-08-06 14:47:00 Test Item Value Reference Range Interpretation Comments Creatinine Lvl (test code = Creatinine 1.32 0.50-0.99 Lvl) [place] 810790-08-06 14:47:00 Test Item Value Reference Range Interpretation Comments eGFR NON-AFR. LITHUANIAN (test code = 43 eGFR NON-AFR. LITHUANIAN) [place] 810790-08-06 14:47:00 Test Item Value Reference Range Interpretation Comments eGFR (test code = eGFR 50 ) [place] 810790-08-06 14:47:00 Test Item Value Reference Range Interpretation Comments B/C Ratio (test code = B/C Ratio) 18 6-22 [place] 810790-08-06 14:47:00 Test Item Value Reference Range Interpretation Comments Sodium Lvl (test code = Sodium Lvl) 138 135-146 [place] 810790-08-06 14:47:00 Test Item Value Reference Range Interpretation Comments Potassium Lvl (test code = Potassium 4.4 3.5-5.3 Lvl) [facility]2020-08-06 14:47:00 Test Item Value Reference Range Interpretation Comments Chloride Lvl (test code = Chloride Lvl) 102 98-110 [place] 810790-08-06 14:47:00 Test Item Value Reference Range Interpretation Comments CO2 (test code = CO2) 30 20-32 [place] 810790-08-06 14:47:00 Test Item Value Reference Range Interpretation Comments Calcium Lvl (test code = Calcium Lvl) 9.4 8.6-10.4 [place] 810790-08-06 14:47:00 Test Item Value Reference Range Interpretation Comments Phosphorus (test code = Phosphorus) 4.8 2.5-4.5 [place] 810790-08-06 14:47:00 Test Item Value Reference Range Interpretation Comments Albumin Lvl (test code = Albumin Lvl) 3.9 3.6-5.1 [place] 413350-08-06 14:47:00 Test Item Value Reference Range Interpretation Comments Plt Count Estimated (test code = DECREASED Plt Count Estimated) [facility]landsGvhrzvbFYBRWRBSFX1124-32-48 14:47:00 Test Item Value Reference Range Interpretation Comments WBC X 10x3 (test code = WBC X 10x3) 7.2 3.8-10.8 [facility]landsSpkbqfnFHJRJIDQLC3883-55-88 14:47:00 Test Item Value Reference Range Interpretation Comments RBC X 10x6 (test code = RBC X 10x6) 3.71 3.80-5.10 [place] [address]-08-06 14:47:00 Test Item Value Reference Range Interpretation Comments Hgb (test code = Hgb) 10.7 11.7-15.5 [place] [address]-08-06 14:47:00 Test Item Value Reference Range Interpretation Comments Hct (test code = Hct) 33.9 35.0-45.0 [place] [address]-08-06 14:47:00 Test Item Value Reference Range Interpretation Comments MCV (test code = MCV) 91.4 80.0-100.0 [place] [address]-08-06 14:47:00 Test Item Value Reference Range Interpretation Comments MCH (test code = MCH) 28.8 pg 27.0-33.0 [place] 413350-08-06 14:47:00 Test Item Value Reference Range Interpretation Comments MCHC (test code = MCHC) 31.6 32.0-36.0 [facility]landsNpggjviOKUBZXTWBC6896-08-13 14:47:00 Test Item Value Reference Range Interpretation Comments RDW (test code = RDW) 13.9 11.0-15.0 [facility]landsOyqfmjfKQJXEGGFQY1329-81-73 14:47:00 Test Item Value Reference Range Interpretation Comments Platelet (test code = Platelet) 110 140-400 [facility]landsKauxbkyXRVUUVMHRG4036-89-79 14:47:00 Test Item Value Reference Range Interpretation Comments MPV (test code = MPV) 11.7 7.5-12.5 [place] 413350-08-06 14:47:00 Test Item Value Reference Range Interpretation Comments Neutrophils # (test code = Neutrophils 5414 8695-4562 #) [facility]landsYxougvvOZHGIAXYNV5738-70-10 14:47:00 Test Item Value Reference Range Interpretation Comments Lymphocytes # (test code = Lymphocytes [phone] #) [facility]landsAqhynkrADJPGIDYQN3256-50-57 14:47:00 Test Item Value Reference Range Interpretation Comments Monocytes # (test code = Monocytes #) 461 200-950 [facility] ArlingtonFnhqpxyKATHWQSCGC4302-27-67 14:47:00 Test Item Value Reference Range Interpretation Comments Eosinophils # (test code = Eosinophils 122 15-500 #) [facility]YqbcrepJKSNJBAZOF5200-41-32 14:47:00 Test Item Value Reference Range Interpretation Comments Basophils # (test code 50 See_Comment [Aut omated message] The = Basophils #) system which generated this result tra nsmitted reference range : <=200. The reference r edy was not used to int erpret this result as normal/abnormal . [facility] CenterUfzbsrgVINIYQGLQF3347-07-62 14:47:00 Test Item Value Reference Range Interpretation Comments Segs (test code = Segs) 75.2 [facility] HospitalNisjounOTYBLPANKF4527-97-90 14:47:00 Test Item Value Reference Range Interpretation Comments Lymphocytes (test code = Lymphocytes) 16.0 [facility] HospitalCrltbnpCFKPWXWAMD0293-77-89 14:47:00 Test Item Value Reference Range Interpretation Comments Monocytes (test code = Monocytes) 6.4 [facility] CenterVonmanyNYMWTLSTQE1088-31-25 14:47:00 Test Item Value Reference Range Interpretation Comments Eosinophils (test code = Eosinophils) 1.7 [facility] ArlingtonTbbxhftHNKYFOXEWW6967-77-25 14:47:00 Test Item Value Reference Range Interpretation Comments Basophils (test code = Basophils) 0.7 [facility] [id number] 14:47:00 Test Item Value Reference Range Interpretation Comments Result 2 (Urine Culture) See Result Comment (test code = Result 2 (Urine Culture)) [facility] AND [id number] 14:47:00 Test Item Value Reference Range Interpretation Comments UA Color (test code = UA Color) YELLOW [facility] AND [id number] 14:47:00 Test Item Value Reference Range Interpretation Comments UA Turbidity (test code = UA CLOUDY Turbidity) [facility] AND [id number] 14:47:00 Test Item Value Reference Range Interpretation Comments UA Spec Grav (test code = UA Spec 1.017 1 1.001-1.035 Grav) [facility] AND [id number] 14:47:00 Test Item Value Reference Range Interpretation Comments UA pH (test code = UA pH) 5.5 1 5.0-8.0 [facility] [id number] 14:47:00 Test Item Value Reference Range Interpretation Comments UA Glucose (test code = UA Glucose) NEGATIVE [facility] [id number] 14:47:00 Test Item Value Reference Range Interpretation Comments UA Bili (test code = UA Bili) NEGATIVE [facility] [id number] 14:47:00 Test Item Value Reference Range Interpretation Comments UA Ketones (test code = UA Ketones) NEGATIVE [facility] [id number] 14:47:00 Test Item Value Reference Range Interpretation Comments UA Blood (test code = UA Blood) 1+ [facility] [id number] 14:47:00 Test Item Value Reference Range Interpretation Comments UA Protein (test code = UA Protein) 1+ [facility] [id number] 14:47:00 Test Item Value Reference Range Interpretation Comments UA Nitrite (test code = UA Nitrite) POSITIVE [facility] [id number] 14:47:00 Test Item Value Reference Range Interpretation Comments UA Leuk Est (test code = UA Leuk Est) 2+ [facility] [id number] 14:47:00 Test Item Value Reference Range Interpretation Comments UA WBC (test code = UA WBC) > OR = 60 [facility] [id number] 14:47:00 Test Item Value Reference Range Interpretation Comments UA RBC (test code = UA RBC) 0-2 [facility] [id number] 14:47:00 Test Item Value Reference Range Interpretation Comments UA Sq Epi (test code = UA Sq Epi) NONE SEEN [facility] [id number] 14:47:00 Test Item Value Reference Range Interpretation Comments UA Bacteria (test code = UA Bacteria) MANY [facility] [id number] 14:47:00 Test Item Value Reference Range Interpretation Comments UA Hyal Cast (test code = UA Hyal NONE SEEN Cast) [facility] [id number] 14:47:00 Test Item Value Reference Range Interpretation Comments UA Reflex (test code CULTURE INDICATED - = UA Reflex) [facility] FOLLOW [facility] [id number] 14:47:00 Test Item Value Reference Range Interpretation Comments U Creat mg/dL (test code = U Creat 114 20-275 mg/dL) [facility] [id number] 14:47:00 Test Item Value Reference Range Interpretation Comments U Alb (test code = U Alb) 16.7 [facility] [id number] 14:47:00 Test Item Value Reference Range Interpretation Comments U Alb/Crea (test code = U Alb/Crea) 146 [facility] PROTEIN ELECTROPHORESIS-24HR [id number] 08:01:00 Test Item Value Reference Range Interpretation Comments CREATININE, 24 HOUR 1.45 g/24 h 0.50-2.15 URINE (test code = 97898826) PROTEIN/CREATININE 292 mg/g creat < OR = 114 H RATION (test code = 27232115) PROTEIN, TOTAL 24 HR UR 424 mg/24 h <150 H TEST PERFORMED (test code = 63172060) AT:[facility] [address] [id number] BOYCE MD ALBUMIN (test code = 35 % 04349834) [id number] (test 10 % code = 78835125) [id number] (test 12 % code = 41953082) BETA GLOBULINS (test 25 % code = 31258085) GAMMA GLOBULINS (test 18 % code = 04892469) INTERPRETATION (test Albumin and code = 77852116) various dann bulin fractions detected on proteinelectrop ho resis. No abnormal protei n bands (Bence-Jonespro te inuria) detected.TEST PERFORMED AT:[facility] [place] [address] [place] [address]CSXEDNIECY BOYCE MD NEUTROPHIL CYTOPLASMIC [id number] 05:19:00 Test Item Value Reference Range Interpretation Comments ANCA SCREEN (test NEGATIVE NEGATIVE ANCA Scree n includes code = 17208772) evaluation for p-ANCA, c-ANCA andatypi alexandre p-ANCA. [...] ofpat ients with Crohn's disease .TEST PERFORMED AT:[facility] [id number] [place] [address]GBAYYOSCAR EISENBERG MD,PHD ,MICHI COMPREHENSIVE METABOLIC [id number] 06:25:00 Test Item Value Reference Range Interpretation [...] MORPH (test code = RBCMOR) NORMAL URINE [id number] 09:53:00 Test Item Value Reference Range Interpretation [...] = VD) 36.0 ng/mL 30.0-100.0 SERUM PROTEIN [id number] 06:20:00 Test Item Value Reference Range Interpretation Comments PROTEIN TOTAL (test 5.7 g/dL 6.1-8.1 L TEST PER FORMED AT:QUEST code = 45930831) DIAGNOSTICS -[id number] [facility] [place] [address]AQOLXLINO BOYCE MD ALBUMIN (test code = 3.2 g/dL 3.8-4.8 L [id number]) [id number]-7-[id number] 0.4 g/dL 0.2-0.3 H (test code = 98629937) [id number]-4-DFUMNRJWB 0.8 g/dL 0.5-0.9 (test code = 61086336) BETA 1 GLOBULIN (test 0.5 g/dL 0.4-0.6 code = 51670767) BETA 2 GLOBULIN (test 0.2 g/dL 0.2-0.5 code = 34396764) GAMMA GLOBULINS (test 0.6 g/dL 0.8-1.7 L code = 28110161) INTERPRETATION (test Pattern consistent with code = 38761359) an acute ph ase reactionConsist ent with hypogammaglobul inemia. Serum free ligh tchains or urine immuno fixation should be consi dered ifplasma cell d yscrasias are a possible clinicaldiagnos is.TEST PERFORMED AT:[facility]-[place] [id number] [facility] [place] [address]INGUFNIECY BOYCE MD [id number] 06:13:00 Test Item Value Reference Range Interpretation Comments MAGNESIUM (test code = 48A) 1.7 mg/dL 1.8-2.4 L COMPREHENSIVE METABOLIC [id number] 06:13:00 Test Item Value Reference Range Interpretation [...] (test code = RBCMOR) NORMAL COMPREHENSIVE METABOLIC [id number] 05:30:00 Test Item Value Reference Range Interpretation [...] (test code = RBCMOR) NORMAL URINALYSIS WITH [id number] 06:44:00 Test Item Value Reference Range Interpretation [...] code = USPERM) /HPF NONE COMPREHENSIVE METABOLIC [id number] 05:24:00 Test Item Value Reference Range Interpretation [...] = RBCMOR) NORMAL U/S KIDNEY (RENAL)2019-06-06 23:20:42LOCATION: [id number]: 63-year-old female who presents with acute nontraumatic [...] jet was observed onthe color flow study.TROPONIN [id number] 07:14:00 Test Item Value Reference Range Interpretation Comments TROPONIN I (test code = A84) <0.015 ng/mL 0.000-0.045 COMPREHENSIVE METABOLIC [id number] 05:28:00 Test Item Value Reference Range Interpretation [...] (test code = RBCMOR) NORMAL COMPREHENSIVE METABOLIC [id number] 04:58:00 Test Item Value Reference Range Interpretation [...] (test code = MDIFF) NO NO CARDIAC [id number] 23:10:00 Test Item Value Reference Range Interpretation Comments TROPONIN I (test code = A84) <0.015 ng/mL 0.000-0.045 U/S VENOUS DOPPLER BALDO LOW [id number] 22:23:14LOCATION: [id number]: 63-year-old female who presents with bilateral leg [...] thrombosis in either of thispatient's legs. CARDIAC [id number] 16:50:00 Test Item Value Reference Range Interpretation Comments TROPONIN I (test code = A84) <0.015 ng/mL 0.000-0.045 BRAIN NATRIURETIC [id number] 14:39:00 Test Item Value Reference Range Interpretation Comments proBNP (test code = PBNP) 1337 pg/mL 0-125 H THYROID PANEL/SCREEN (TSH)2019-06-04 12:05:00 Test Item Value Reference Range Interpretation Comments TSH (test code = A57) 0.989 uIU/mL 0.358-3.740 [id number] 12:02:00 Test Item Value Reference Range Interpretation Comments CPK (test code = 32A) 98 IU/L 26-192 AMYLASE AND [id number] 12:02:00 Test Item Value Reference Range Interpretation Comments AMYLASE (test code = 10A) 19 U/L 28-100 L LIPASE (test code = 60A) 67 IU/L 73-393 L COMPREHENSIVE METABOLIC [id number] 12:02:00 Test Item Value Reference Range Interpretation [...] code = 31A) 41 IU/L <=78 TROPONIN [id number] 11:57:00 Test Item Value Reference Range Interpretation Comments TROPONIN I (test code = A84) <0.015 ng/mL 0.000-0.045 XR CHEST 1 VIEW [id number] 11:55:22EXAM: XR CHEST 1 VIEW PORTABLE.LOCATION: D4.HISTORY: [id number]: Chest pain.COMPARISON: Radiograph dated 05/12/2019.TECHNIQUE: Single AP view of the chest was obtained. FINDINGS:The heart is enlarged in size. Small left pleural effusion and left basilaropacities are present. There is elevation of the right hemidiaphragm. No acuteosseous abnormality is identified.IMPRESSION:Small left pleural effusion with left basilar opacities, which may representatelectasis or infiltrates.Cardiomegaly. PRO TIME AND [id number] 11:43:00 Test Item Value Reference Range Interpretation [...] (test code = RBCMOR) NORMAL CBC WITH [id number] 15:29:00 Test Item Value Reference Range Interpretation [...] NORMAL (1.5-3 um) NORMAL PLTMOR) BASIC METABOLIC [id number] 15:26:00 Test Item Value Reference Range Interpretation [...] code = 09D) 9.2 mg/dL 8.3-9.5 CARDIAC [id number] 06:04:00 Test Item Value Reference Range Interpretation Comments TROPONIN I (test code = A84) <0.015 ng/mL 0.000-0.045 BASIC METABOLIC [id number] 05:52:00 Test Item Value Reference Range Interpretation [...] MORPH (test code = RBCMOR) NORMAL CARDIAC [id number] 23:08:00 Test Item Value Reference Range Interpretation Comments TROPONIN I (test code = A84) <0.015 ng/mL 0.000-0.045 CT DISSECTION [id number] 19:26:35Exam: CT thorax PE protocol.Location: 12History: [id number]: Chest painTechnique: Enhanced spiral slices were taken [...] code = A57) 0.706 uIU/mL 0.358-3.740 LIVER [id number] 18:28:00 Test Item Value Reference Range Interpretation [...] = 31A) 21 IU/L <=78 BRAIN NATRIURETIC [id number] 18:19:00 Test Item Value Reference Range Interpretation Comments proBNP (test code = PBNP) 518 pg/mL 0-125 H [id number] 18:15:00 Test Item Value Reference Range Interpretation Comments MAGNESIUM (test code = 48A) 1.9 mg/dL 1.8-2.4 [id number] 17:40:00 Test Item Value Reference Range Interpretation Comments D-DIMER (test code = <200 ng/mL D-DU 0-234 DDI) D-DIMER COMMENT (test *Level to rule out code = DDCOM) DVT or PE: <235 ng/mL D-DU* CARDIAC [id number] 17:31:00 Test Item Value Reference Range Interpretation Comments TROPONIN I (test code = A84) <0.015 ng/mL 0.000-0.045 BASIC METABOLIC [id number] 17:27:00 Test Item Value Reference Range Interpretation [...] LMW Heparin. Order Code is ANTI-XA PROTHROMBIN [id number] 17:26:00 Test Item Value Reference Range Interpretation Comments PT (test code = 12.0 s 9.8-13.6 TT) INR (test code = 1.1 INR) INRH (test code = SUGGESTED THERAPEUTIC INRH) RANGE FOR INR: 2.5 - 3.5 For Patients with Prosthetic Valves or Patients with recurrent Thromboembolic Events 2.0 - 3.0 For Most Other Applications XR CHEST 1 VIEW [id number] 17:04:28Portable AP chest, 1 viewLocation Code: [id number] HISTORY: Chest painCOMPARISON: NoneCOMMENT: Mild atelectasis is present within the lung bases. The costophrenic angles aresharp. The cardiomediastinalsilhouette is unremarkable. The bones are intact.IMPRESSION: Mild bibasilar atelectasis. Otherwise, no acute abnormalityYADKIN VALLEY COMMUNITY [id number] 16:51:00 Test Item Value Reference Range Interpretation Comments Creatinine Lvl (test code = Creatinine 1.15 0.50-1.40 Lvl) [facility]2017-01-24 16:51:00 Test Item Value Reference Range Interpretation Comments BUN (test code = BUN) 16 - [facility]2017-01-24 16:51:00 Test Item Value Reference Range Interpretation Comments Chloride Lvl (test code = Chloride Lvl) 109 95-109 [facility]2017-01-24 16:51:00 Test Item Value Reference Range Interpretation Comments Potassium Lvl (test code = Potassium 4.3 3.5-5.1 Lvl) [facility]2017-01-24 16:51:00 Test Item Value Reference Range Interpretation Comments Sodium Lvl (test code = Sodium Lvl) 144 135-145 [facility]2017-01-24 16:51:00 Test Item Value Reference Range Interpretation Comments CO2 (test code = CO2) 28 24-32 [facility]2017-01-24 16:51:00 Test Item Value Reference Range Interpretation Comments Calcium Lvl (test code = Calcium Lvl) 8.4 8.5-10.5 [facility]2017-01-24 16:51:00 Test Item Value Reference Range Interpretation Comments AGAP (test code = AGAP) 11.3 10.0-20.0 [facility]2017-01-24 16:51:00 Test Item Value Reference Range Interpretation Comments Glucose Lvl (test code = Glucose Lvl) 109 70-99 [facility]2017-01-24 16:51:00 Test Item Value Reference Range Interpretation Comments eGFR (test code = eGFR) 52 [facility]2017-01-24 16:51:00 Test Item Value Reference Range Interpretation Comments Creatinine Lvl (test code = Creatinine 1.15 0.50-1.40 Lvl) [facility]2017-01-24 16:51:00 Test Item Value Reference Range Interpretation Comments BUN (test code = BUN) 16 - [facility]2017-01-24 16:51:00 Test Item Value Reference Range Interpretation Comments Chloride Lvl (test code = Chloride Lvl) 109 95-109 [facility]2017-01-24 16:51:00 Test Item Value Reference Range Interpretation Comments Potassium Lvl (test code = Potassium 4.3 3.5-5.1 Lvl) [facility]2017-01-24 16:51:00 Test Item Value Reference Range Interpretation Comments Sodium Lvl (test code = Sodium Lvl) 144 135-145 [facility]2017-01-24 16:51:00 Test Item Value Reference Range Interpretation Comments CO2 (test code = CO2) 28 -32 [facility]2017-01-24 16:51:00 Test Item Value Reference Range Interpretation Comments Calcium Lvl (test code = Calcium Lvl) 8.4 8.5-10.5 [facility]2017-01-24 16:51:00 Test Item Value Reference Range Interpretation Comments AGAP (test code = AGAP) 11.3 10.0-20.0 [facility]2017-01-24 16:51:00 Test Item Value Reference Range Interpretation Comments Glucose Lvl (test code = Glucose Lvl) 109 70-99 [facility]2017-01-24 16:51:00 Test Item Value Reference Range Interpretation Comments eGFR (test code = eGFR) 52 [facility]2017-01-24 16:51:00 Test Item Value Reference Range Interpretation Comments Creatinine Lvl (test code = Creatinine 1.15 0.50-1.40 Lvl) [facility]2017-01-24 16:51:00 Test Item Value Reference Range Interpretation Comments BUN (test code = BUN) 16 - [facility]2017-01-24 16:51:00 Test Item Value Reference Range Interpretation Comments Chloride Lvl (test code = Chloride Lvl) 109 95-109 [facility]2017-01-24 16:51:00 Test Item Value Reference Range Interpretation Comments Potassium Lvl (test code = Potassium 4.3 3.5-5.1 Lvl) [facility]2017-01-24 16:51:00 Test Item Value Reference Range Interpretation Comments Sodium Lvl (test code = Sodium Lvl) 144 135-145 [facility]2017-01-24 16:51:00 Test Item Value Reference Range Interpretation Comments CO2 (test code = CO2) [facility]2017-01-24 16:51:00 Test Item Value Reference Range Interpretation Comments Calcium Lvl (test code = Calcium Lvl) 8.4 8.5-10.5 [facility]2017-01-24 16:51:00 Test Item Value Reference Range Interpretation Comments AGAP (test code = AGAP) 11.3 10.0-20.0 [facility]2017-01-24 16:51:00 Test Item Value Reference Range Interpretation Comments Glucose Lvl (test code = Glucose Lvl) 109 70-99 [facility]2017-01-24 16:51:00 Test Item Value Reference Range Interpretation Comments eGFR (test code = eGFR) 52 [facility]2017-01-24 16:51:00 Test Item Value Reference Range Interpretation Comments Creatinine Lvl (test code = Creatinine 1.15 0.50-1.40 Lvl) [facility]2017-01-24 16:51:00 Test Item Value Reference Range Interpretation Comments BUN (test code = BUN) 16 05-12 [facility]2017-01-24 16:51:00 Test Item Value Reference Range Interpretation Comments Chloride Lvl (test code = Chloride Lvl) 109 95-109 [facility]2017-01-24 16:51:00 Test Item Value Reference Range Interpretation Comments Potassium Lvl (test code = Potassium 4.3 3.5-5.1 Lvl) [facility]2017-01-24 16:51:00 Test Item Value Reference Range Interpretation Comments Sodium Lvl (test code = Sodium Lvl) 144 135-145 [facility]2017-01-24 16:51:00 Test Item Value Reference Range Interpretation Comments CO2 (test code = CO2) [facility]2017-01-24 16:51:00 Test Item Value Reference Range Interpretation Comments Calcium Lvl (test code = Calcium Lvl) 8.4 8.5-10.5 [facility]2017-01-24 16:51:00 Test Item Value Reference Range Interpretation Comments AGAP (test code = AGAP) 11.3 10.0-20.0 [facility]2017-01-24 16:51:00 Test Item Value Reference Range Interpretation Comments Glucose Lvl (test code = Glucose Lvl) 109 70-99 [facility]2017-01-24 16:51:00 Test Item Value Reference Range Interpretation Comments eGFR (test code = eGFR) 52 [facility]2017-01-24 16:51:00 Test Item Value Reference Range Interpretation Comments Creatinine Lvl (test code = Creatinine 1.15 0.50-1.40 Lvl) [facility]2017-01-24 16:51:00 Test Item Value Reference Range Interpretation Comments BUN (test code = BUN) 16 - [facility]2017-01-24 16:51:00 Test Item Value Reference Range Interpretation Comments Chloride Lvl (test code = Chloride Lvl) 109 95-109 [facility]2017-01-24 16:51:00 Test Item Value Reference Range Interpretation Comments Potassium Lvl (test code = Potassium 4.3 3.5-5.1 Lvl) [facility]2017-01-24 16:51:00 Test Item Value Reference Range Interpretation Comments Sodium Lvl (test code = Sodium Lvl) 144 135-145 [facility]2017-01-24 16:51:00 Test Item Value Reference Range Interpretation Comments CO2 (test code = CO2) [facility]2017-01-24 16:51:00 Test Item Value Reference Range Interpretation Comments Calcium Lvl (test code = Calcium Lvl) 8.4 8.5-10.5 [facility]2017-01-24 16:51:00 Test Item Value Reference Range Interpretation Comments AGAP (test code = AGAP) 11.3 10.0-20.0 [facility]2017-01-24 16:51:00 Test Item Value Reference Range Interpretation Comments Glucose Lvl (test code = Glucose Lvl) 109 70-99 [facility]2017-01-24 16:51:00 Test Item Value Reference Range Interpretation Comments eGFR (test code = eGFR) 52 [facility]2017-01-24 16:51:00 Test Item Value Reference Range Interpretation Comments Creatinine Lvl (test code = Creatinine 1.15 0.50-1.40 Lvl) [facility]2017-01-24 16:51:00 Test Item Value Reference Range Interpretation Comments BUN (test code = BUN) 16 - [facility]2017-01-24 16:51:00 Test Item Value Reference Range Interpretation Comments Chloride Lvl (test code = Chloride Lvl) 109 95-109 [facility]2017-01-24 16:51:00 Test Item Value Reference Range Interpretation Comments Potassium Lvl (test code = Potassium 4.3 3.5-5.1 Lvl) [facility]2017-01-24 16:51:00 Test Item Value Reference Range Interpretation Comments Sodium Lvl (test code = Sodium Lvl) 144 135-145 [facility]2017-01-24 16:51:00 Test Item Value Reference Range Interpretation Comments CO2 (test code = CO2) 28 24-32 [facility]2017-01-24 16:51:00 Test Item Value Reference Range Interpretation Comments Calcium Lvl (test code = Calcium Lvl) 8.4 8.5-10.5 [facility]2017-01-24 16:51:00 Test Item Value Reference Range Interpretation Comments AGAP (test code = AGAP) 11.3 10.0-20.0 [facility]2017-01-24 16:51:00 Test Item Value Reference Range Interpretation Comments Glucose Lvl (test code = Glucose Lvl) 109 70-99 [facility]2017-01-24 16:51:00 Test Item Value Reference Range Interpretation Comments eGFR (test code = eGFR) 52 [facility]
[2022-10-18] MEDS ORDERED: AMIODARONE HCL 150 MG in D5W 100 ML IV STA (11:21)
[2022-10-18] MEDS ORDERED: AMIODARONE HCL 150 MG/3 ML INJ IV ONE (11:23)
[2022-10-18] MEDS ORDERED: D5W 100 ML IV ONE (11:23)
[2022-10-18] MEDS ORDERED: ONDANSETRON 4 MG/2 ML VIAL ONE (12:00)
[2022-10-18] MEDS ORDERED: AMIODARONE HCL 900 MG in Dextrose 5%-Water 482 ML IV SCH (12:00)
[2022-10-18 12:37] LABS: Hematocrit 29.1 % (36.0-45.0); Lymphocytes % 9.9 % (15.3-44.8); MCV 96.1 fL (80-100); MPV 7.8 fL (7.6-11.3); RBC Red Blood Cell Count 3.03 M/uL (3.86-4.86)
[2022-10-18 13:13] LABS: Albumin 3.2 g/dL (3.4-5.0); Bilirubin Total 1.2 mg/dL (0.2-1.0); Magnesium 2.2 mg/dL (1.6-2.4); Potassium 4.6 mmol/L (3.5-5.1); Protein, Total 8.3 g/dL (6.4-8.2); Thyroid Stimulating Hormone 0.98 uIU/mL (0.358-3.740); Troponin High Sensitivity 23.4 pg/mL (<58.9)
--- NOTE | 2022-10-18 13:44 | ER ---
Nurse's Notes [facility] Name: Kassie De Jesus Age: 67 yrs Sex: Female : 1955 Arrival Date: 10/18/2022 Time: 10:55 Bed 19 Private MD: Diagnosis: Unspecified atrial fibrillation Presentation: 10/18 11:12 Chief complaint: Patient states: Sent from [employer] for a-fib/RVR w/ rate up to ph 160s, hx of a-fib, states that she was recently transferred to [facility] for HR in 30s and taken off of her metoprolol. Pt denies chest pain or palpitations, reports weakness and fatigue, on home oxygen at 2L NC. Coronavirus screen: Vaccine status: Patient reports being unvaccinated. Ebola Screen: No symptoms or risks identified at this time. Initial Sepsis Screen: Does the patient meet any 2 criteria? No. Patient's initial sepsis screen is negative. Does the patient have a suspected source of infection? No. Patient's initial sepsis screen is negative. Risk Assessment: Do you want to hurt yourself or someone else? Patient reports no desire to harm self or others. Onset of symptoms was October 18, 2022. 11:12 Method Of Arrival: Wheelchair ph 11:12 Acuity: LENI 2 ph Historical: - Allergies: 11:15 Bactrim; ph 11:15 cefepime; ph 11:15 Codeine; ph 11:15 Levofloxacin; ph 11:15 Morphine; itching; ph 11:15 PENICILLINS; ph 11:15 QUINOLONES; ph - PMHx: 11:15 Atrial fibrillation; Congestive heart failure; Dialysis; High Cholesterol; Hypertensive ph disorder; stage 4 kidney failure; - PSHx: 11:15 back surgery; Dialysis catheter LEFT upper chest; ph - Immunization history:: Adult Immunizations unknown. - Social history:: Smoking status: Patient denies any tobacco usage or history of. - Family history:: not pertinent. Screenin:00 [facility] ED Fall Risk Assessment (Adult) History of falling in the last 3 months, mb9 including since admission No falls in past 3 months (0 pts) Confusion or Disorientation No (0 pts) Intoxicated or Sedated No (0 pts) Impaired Gait No (0 pts) Mobility Assist Device Used No (0 pt) Altered Elimination No (0 pt) Score/Fall Risk Level 0 - 2 = Low Risk Maintained a safe environment. Abuse screen: Denies threats or abuse. Nutritional screening: No deficits noted. Nutritional screening: No deficits noted. Tuberculosis screening: No symptoms or risk factors identified. Assessment: 11:05 General: Appears in no apparent distress. uncomfortable, Behavior is cooperative. Pain: mb9 Denies pain. Neuro: Newman Agitation-Sedation Scale (RASS): 0 - Alert and Calm Level of Consciousness is awake, alert, obeys commands, Oriented to person, place, time, situation, Appropriate for age. Cardiovascular: Reports nausea, shortness of breath, Denies chest pain, Heart tones S1 S2 present Capillary refill < 3 seconds Rhythm is atrial fibrillation with rapid ventricular response. 11:05 Respiratory: Reports shortness of breath Airway is patent Respiratory effort is even, mb9 unlabored, Respiratory pattern is regular, symmetrical, Breath sounds are clear bilaterally. GI: Abdomen is round non-distended, Bowel sounds present X 4 quads. Abd is soft and non tender. GI: Abd is soft and non tender X 4 quads. : No signs and/or symptoms were reported regarding the genitourinary system. EENT: No signs and/or symptoms were reported regarding the EENT system. Derm: Skin is intact, Skin is dry, Skin is normal, Skin temperature is warm. Musculoskeletal: Range of motion: intact in all extremities. 12:05 General: Appears comfortable, Behavior is cooperative. Pain: Denies pain. Neuro: Level mb9 of Consciousness is awake, alert, obeys commands, Oriented to person, place, time, situation, Appropriate for age. Cardiovascular: Reports nausea, shortness of breath, Denies chest pain, Rhythm is atrial fibrillation with rapid ventricular response. 12:05 Respiratory: Airway is patent Respiratory effort is labored, Respiratory pattern is mb9 tachypnea. Derm: Skin is intact, Skin is dry, Skin is normal, Skin temperature is warm. 13:05 Reassessment: pt currently sleeping. Respirations are even and unlabored. Airway is mb9 patent. Rhythm is AFIb. 14:27 General: Appears in no apparent distress. comfortable. Pain: Denies pain. mb9 Cardiovascular: Rhythm is atrial fibrillation. Respiratory: Airway is patent. Derm: Skin is pink, warm \T\ dry. 15:22 Reassessment: pt sleeping. Airway is patent. Respirations are even. Rhythm is AFib. mb9 Skin is pink, warm, and intact. Vital Signs: 11:05 BP 124 / 99; Pulse 147; Resp 32; Pulse Ox 100% 2 lpm ; mb9 11:12 BP 124 / 99; Pulse 135; Resp 22; Temp 98.3(O); Pulse Ox 99% on 2 lpm NC; Weight 104.33 ph kg; Height 5 ft. 7 in. (170.18 cm); 11:30 BP 118 / 63; Pulse 126; Resp 33; Pulse Ox 100% on 2 lpm NC; mb9 12:00 BP 123 / 83; Pulse 130; Resp 28; Pulse Ox 100% ; mb9 13:00 BP 111 / 73; Pulse 127; Resp 20; Pulse Ox 100% on R/A; mb9 14:00 BP 111 / 60; Pulse 109; Resp 21; Pulse Ox 100% on 2 lpm NC; mb9 15:03 BP 106 / 73; Pulse 117; Resp 24; Pulse Ox 98% on 2 lpm NC; mb9 11:12 Body Mass Index 36.02 (104.33 kg, 170.18 cm) ph ED Course: 10:55 Patient arrived in ED. as 10:58 Ethan Gastelum MD is Attending Physician. rt 11:00 Placed in gown. Bed in low position. Call light in reach. Side rails up X 1. Client mb9 placed on continuous cardiac and pulse oximetry monitoring. NIBP monitoring applied. electronic device monitor on. 11:00 EKG done, by ED staff, reviewed by Ethan Gastelum MD. mb9 11:15 Triage completed. ph 11:15 Ashley Petty RN is Primary Nurse. mb9 11:15 Arm band placed on Patient placed in an exam room, on a stretcher, on oxygen, on ph monitoring engineer, on pulse oximetry. 11:15 Inserted saline lock: 20 gauge in right antecubital area, using aseptic technique. mb9 12:28 No provider procedures requiring assistance completed. mb9 13:43 Ranjit Eagle MD is Hospitalizing Provider. rt 14:12 SARS RAPID Sent. mb9 19:40 Patient admitted, IV remains in place. ha1 Administered Medications: 11:30 Drug: amiodarone 150 mg Volume: 100 ml; Route: IVPB; Infused Over: 10 mins; Site: right mb9 antecubital; 11:40 Follow up: Response: No adverse reaction; IV Status: Completed infusion mb9 12:01 Drug: amiodarone 900 mg, D5W 500 ml Route: IVPB; Rate: 1 mg/min; Site: right mb9 antecubital; 12:02 Drug: Zofran (Ondansetron) 4 mg Route: IVP; Site: right antecubital; mb9 12:20 Follow up: Response: No adverse reaction mb9 Medication: 12:28 VIS not applicable for this client. mb9 Outcome: 13:44 Decision to Hospitalize by Provider. rt 19:40 Admitted to ER Hold. Please see [facility] for further documentation. ha1 19:40 Condition: stable 19:40 Instructed on the need for admit, Demonstrated understanding of instructions. 10/19 09:49 Patient left the ED. Signatures: Jeannette Porras Shelby, RN RN Juli Salazar RN RN Funmilayo Agudelo RN RN 1 Ashley Petty RN RN mb9 Ethan Gastelum MD MD rt Corrections: (The following items were deleted from the chart) 10/18 12:05 11:30 BP 119 / 79; Pulse 88bpm; Resp 18bpm; Pulse Ox 100%; mb9 mb9
--- NOTE | 2022-10-18 13:44 | EDPHYS ---
Physician Documentation [facility] Name: Kassie De Jesus Age: 67 yrs Sex: Female : 1955 Arrival Date: 10/18/2022 Time: 10:55 Bed 19 Private MD: ED Physician Ethan Gastelum HPI: 10/18 12:51 This 67 yrs old Female presents to ER via Wheelchair with complaints of afib. rt 12:51 The patient has shortness of breath at rest. Onset: The symptoms/episode began/occurred rt at an unknown time. Duration: The symptoms are continuous. The patient's shortness of breath has no apparent modifying factors. Associated signs and symptoms: The patient has no apparent associated signs or symptoms. Severity of symptoms: At their worst the symptoms were moderate. Patient was admitted recently to the hospital, metoprolol was stopped due to low blood pressures. 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 fib with RVR at a rate of the 160s. The patient reports a shortness of breath but denies palpitations, chest pain with acute complaints. Symptoms are moderate in severity, no other aggravating alleviating factors.. Historical: - Allergies: 11:15 Bactrim; ph 11:15 cefepime; ph 11:15 Codeine; ph 11:15 Levofloxacin; ph 11:15 Morphine; itching; ph 11:15 PENICILLINS; ph 11:15 QUINOLONES; ph - PMHx: 11:15 Atrial fibrillation; Congestive heart failure; Dialysis; High Cholesterol; Hypertensive ph disorder; stage 4 kidney failure; - PSHx: 11:15 back surgery; Dialysis catheter LEFT upper chest; ph - Immunization history:: Adult Immunizations unknown. - Social history:: Smoking status: Patient denies any tobacco usage or history of. - Family history:: not pertinent. ROS: 12:51 Constitutional: Negative for fever, chills, and weight loss, Eyes: Negative for injury, rt pain, redness, and discharge, ENT: Negative for injury, pain, and discharge, Neck: Negative for injury, pain, and swelling, Cardiovascular: Negative for chest pain, palpitations, and edema, Abdomen/GI: Negative for abdominal pain, nausea, vomiting, diarrhea, and constipation, Back: Negative for injury and pain, MS/Extremity: Negative for injury and deformity, Skin: Negative for injury, rash, and discoloration, Neuro: Negative for headache, weakness, numbness, tingling, and seizure, Psych: Negative for depression, anxiety, suicide ideation, homicidal ideation, and hallucinations. 12:51 Respiratory: Positive for shortness of breath, Negative for cough. Exam: 12:51 Constitutional: This is a well developed, well nourished patient who is awake, alert, rt and in no acute distress. Head/Face: Normocephalic, atraumatic. Eyes: Pupils equal round and reactive to light, extra-ocular motions intact. Lids and lashes normal. Conjunctiva and sclera are non-icteric and not injected. Cornea within normal limits. Periorbital areas with no swelling, redness, or edema. ENT: Nares patent. No nasal discharge, no septal abnormalities noted. Tympanic membranes are normal and external auditory canals are clear. Oropharynx with no redness, swelling, or masses, exudates, or evidence of obstruction, uvula midline. Mucous membranes moist. Neck: Trachea midline, no thyromegaly or masses palpated, and no cervical lymphadenopathy. Supple, full range of motion without nuchal rigidity, or vertebral point tenderness. No Meningismus. Chest/axilla: Normal chest wall appearance and motion. Nontender with no deformity. No lesions are appreciated. Respiratory: Lungs have equal breath sounds bilaterally, clear to auscultation and percussion. No rales, rhonchi or wheezes noted. No increased work of breathing, no retractions or nasal flaring. Abdomen/GI: Soft, non-tender, with normal bowel sounds. No distension or tympany. No guarding or rebound. No evidence of tenderness throughout. Skin: Warm, dry with normal turgor. Normal color with no rashes, no lesions, and no evidence of cellulitis. MS/ Extremity: Pulses equal, no cyanosis. Neurovascular intact. Full, normal range of motion. Neuro: Awake and alert, GCS 15, oriented to person, place, time, and situation. Cranial nerves II-XII grossly intact. Motor strength 5/5 in all extremities. Sensory grossly intact. Cerebellar exam normal. Normal gait. Psych: Awake, alert, with orientation to person, place and time. Behavior, mood, and affect are within normal limits. 12:51 Cardiovascular: Tachycardic, irregularly irregular rhythm, heart sounds normal. 12:51 ECG was reviewed by the Attending Physician. Vital Signs: 11:05 BP 124 / 99; Pulse 147; Resp 32; Pulse Ox 100% 2 lpm ; mb9 11:12 BP 124 / 99; Pulse 135; Resp 22; Temp 98.3(O); Pulse Ox 99% on 2 lpm NC; Weight 104.33 ph kg; Height 5 ft. 7 in. (170.18 cm); 11:30 BP 118 / 63; Pulse 126; Resp 33; Pulse Ox 100% on 2 lpm NC; mb9 12:00 BP 123 / 83; Pulse 130; Resp 28; Pulse Ox 100% ; mb9 13:00 BP 111 / 73; Pulse 127; Resp 20; Pulse Ox 100% on R/A; mb9 14:00 BP 111 / 60; Pulse 109; Resp 21; Pulse Ox 100% on 2 lpm NC; mb9 15:03 BP 106 / 73; Pulse 117; Resp 24; Pulse Ox 98% on 2 lpm NC; mb9 11:12 Body Mass Index 36.02 (104.33 kg, 170.18 cm) ph MDM: 11:00 Patient medically screened. rt 13:47 Differential diagnosis: Anemia asthma, Bronchitis A. fib, pulmonary edema. Data rt reviewed: vital signs, nurses notes, old medical records, lab test result(s), EKG, radiologic studies. 10/18 11:10 Order name: CBC with Diff; Complete Time: 13:18 rt 10/18 11:10 Order name: CMP; Complete Time: 13:18 rt 10/18 11:10 Order name: Magnesium; Complete Time: 13:18 rt 10/18 11:10 Order name: Troponin High Sensitivity; Complete Time: 13:18 rt 10/18 11:10 Order name: BNP; Complete Time: 13:18 rt 10/18 11:10 Order name: TSH; Complete Time: 13:18 rt 10/18 11:10 Order name: EKG; Complete Time: 11:11 rt 10/18 11:10 Order name: EKG - Nurse/Tech; Complete Time: 11:15 rt 10/18 13:53 Order name: SARS RAPID; Complete Time: 14:36 mb9 EC:51 Rate is 134 beats/min. Rhythm is irregularly irregular, A fib with No ectopy. Right rt axis deviation noted. QRS interval is normal. QT interval is normal. No Q waves. Administered Medications: 11:30 Drug: amiodarone 150 mg Volume: 100 ml; Route: IVPB; Infused Over: 10 mins; Site: right mb9 antecubital; 11:40 Follow up: Response: No adverse reaction; IV Status: Completed infusion mb9 12:01 Drug: amiodarone 900 mg, D5W 500 ml Route: IVPB; Rate: 1 mg/min; Site: right mb9 antecubital; 12:02 Drug: Zofran (Ondansetron) 4 mg Route: IVP; Site: right antecubital; mb9 12:20 Follow up: Response: No adverse reaction mb9 Disposition: 13:47 Critical Care:. rt Disposition Summary: 10/18/22 13:44 Hospitalization Ordered Hospitalization Status: Observation rt Provider: Ranjit Eagle rt Condition: Stable rt Problem: an acute exacerbation rt Symptoms: have improved rt Bed/Room Type: Standard rt Location: Telemetry/MedSurg (Inpatient)(10/19/22 07:46) kj1 Room Assignment: 408(10/19/22 07:46) kj1 Diagnosis - Unspecified atrial fibrillation rt Forms: - Medication Reconciliation Form rt - SBAR form rt Critical care time excluding procedures: 13:47 Critical care time: Bedside Care: 30 minutes, Consultation: 5 minutes. Total time: 35 rt minutes Signatures: Dispatcher [employer] Juli Bonilla RN RN ph Garcia, Cindy, RN RN cg Jackson, Kandis kj1 Ashley Petty RN RN [email or web address] Ethan Gastelum MD MD rt Corrections: (The following items were deleted from the chart) 19:37 13:44 Telemetry/MedSurg (observation) rt cg 19:37 13:44 rt cg 10/19 07:46 10/18 19:37 [facility] ER HOLD cg kj1 10/19 07:46 10/18 19:37 ERHOLD- cg kj1
[2022-10-18 14:35] LABS: SARS-CoV-2 Antigen Rapid Res Negative (Negative)
[2022-10-18 15:28] VITALS: BMI 36.0
--- NOTE | 2022-10-18 15:29 | P.HP ---
Certification for Inpatient Patient admitted to: Inpatient With expected LOS: >2 Midnights Patient will require the following post-hospital care: None Practitioner: I am a practitioner with admitting privileges, knowledge of patient current condition, hospital course, and medical plan of care. Services: Services provided to patient in accordance with Admission requirements found in Title 42 Section 412.3 of the Code of Federal Regulations Patient History Date of Service: 10/18/22 Primary Care Provider: Fco Reason for admission: atrial fib w/ rvr History of Present Illness: Patient is here after going to Dr. Chamberlain office. The patient was just having some tiredness. However she was found to have a rate of 150's in Dr. Chamberlain's office and was sent to the hospital to start her on amiodarone. She states that her metoprolol was stopped when she was transfered for rvr on the last visit. This may be a reason for the rate. Allergies cefepime Allergy (Verified 10/26/21 06:30) Hives codeine Allergy (Verified 05/20/22 05:03) Itching levofloxacin Allergy (Verified 10/26/21 06:30) Hives/Rash morphine Allergy (Verified 05/20/22 05:03) Itching Penicillins Allergy (Verified 10/26/21 06:30) Hives/Rash sulfamethoxazole [From Bactrim] Allergy (Verified 05/20/22 05:03) Hives trimethoprim [From Bactrim] Allergy (Verified 05/20/22 05:03) Hives Home Medications: Apixaban [Eliquis] 2.5 mg PO BID 05/19/22 Bumetanide 1 tab PO DAILY 05/19/22 Digoxin [Lanoxin] 1 tab PO T,TH,S 05/19/22 Metoprolol Tartrate 1 tab PO BID 05/19/22 Midodrine HCl 1 tab PO TID 05/19/22 Pantoprazole [Protonix Tab*] 1 tab PO BID 05/19/22 Sevelamer Carbonate [Renvela] 800 mg PO TID 05/19/22 Dicyclomine [Bentyl*] 1 tab PO TID PRN 09/01/22 Ondansetron [Zofran (Odt)*] 8 mg PO TID PRN 09/01/22 Tizanidine [Zanaflex*] 1 tab PO BID 09/01/22 - Past Medical/Surgical History Diabetic: No -: Chronic hypotension -: Hyperlipidemia -: Chronic anticoagulation use -: History of nephrolithiasis requiring stent placement -: Recurrent UTI -: End-stage renal disease -: CHF -: HTN -: A-Fib -: tubal ligation -: dialysis port -: cholecystectomy -: right broken wrist -: lasik -: cataracts removed - Family History Sister -: Cancer Notes: per pt, sister has lung cancer and is being treated for a "spot on her brain" - Social History Alcohol use: No CD- Drugs: No Caffeine use: Yes Review of Systems 10-point ROS is otherwise unremarkable General: Malaise Physical Examination - Physical Exam General: Alert, In no apparent distress HEENT: Atraumatic, PERRLA, Mucous membr. moist/pink, EOMI, Sclerae nonicteric Neck: Supple, 2+ carotid pulse no bruit, No LAD, Without JVD or thyroid abnormality Respiratory: Clear to auscultation bilaterally, Normal air movement Cardiovascular: Normal S1 S2, Irregular heart rate/rhythm Gastrointestinal: Normal bowel sounds, No tenderness Musculoskeletal: No tenderness Integumentary: No rashes Neurological: Normal gait, Normal speech, Normal strength at 5/5 x4 extr, Normal tone, Normal affect Lymphatics: No axilla or inguinal lymphadenopathy - Studies Laboratory Data (last 24 hrs) 10/18/22 12:21: Sodium 137, Potassium 4.6, BUN 41 H, Creatinine 6.76 H*, Glucose 125 H, Magnesium 2.2, Total Bilirubin 1.2 H, AST 7 L, ALT 13, Alkaline Phosphatase 155 H 10/18/22 12:21: WBC 10.10, Hgb 9.3 L, Hct 29.1 L, Plt Count 176 Assessment and Plan - Problems (Diagnosis) (1) Atrial fibrillation Current Visit: Yes Status: Acute Plan: she is on amiodarone. Will restart the metoprol and digoxin. Consult to Dr. Chamberlain Qualifiers: Atrial fibrillation type: paroxysmal Qualified Code(s): I48.0 - Paroxysmal atrial fibrillation (2) CHF (congestive heart failure) Current Visit: No Status: Chronic Plan: currently not fluid overloaded. Volume status is well controlled with dialysis Qualifiers: Heart failure type: diastolic Heart failure chronicity: chronic Qualified Code(s): I50.32 - Chronic diastolic (congestive) heart failure (3) ESRD (end stage renal disease) on dialysis Current Visit: No Status: Chronic Plan: consult to Dr. Powers for dialysis managment Discharge Plan: Home Plan to discharge in: 24 Hours - Advance Directives Does patient have a Living Will: No Does patient have a Durable POA for Healthcare: No - Code Status/Comfort Care Code Status Assessed: No Code Status: Full Code Physician Review: Patient Assessed, Agree with Above Assessment and Plan Critical Care: No Time Spent Managing Pts Care (In Minutes): 45
[2022-10-18] MEDS ORDERED: DICYCLOMINE HCL 10 MG CAP PO PRN (15:32)
[2022-10-18] MEDS ORDERED: ONDANSETRON 4 MG (ODT) TAB PO PRN (15:32)
[2022-10-18] MEDS: SEVELAMER CARBONATE 800 MG TABLET PO SCH (17:00)
[2022-10-18] MEDS: PANTOPRAZOLE 40MG TABLET PO SCH (21:00)
[2022-10-18] MEDS: APIXABAN 2.5 MG TABLET PO SCH (21:00)
[2022-10-18] MEDS: METOPROLOL TAR 25 MG TAB PO SCH (21:00)
[2022-10-18] MEDS ORDERED: APIXABAN 5 MG TABLET ONE (21:12)
[2022-10-18] MEDS ORDERED: PANTOPRAZOLE 40MG TABLET PO ONE (21:12)
[2022-10-18] MEDS ORDERED: METOPROLOL TAR 25 MG TAB ONE (21:13)
[2022-10-18] MEDS: TIZANIDINE 4 MG TABLET PO SCH (22:00)
[2022-10-19] MEDS: SEVELAMER CARBONATE 800 MG TABLET PO SCH ×3 (08:00→17:00)
[2022-10-19 08:39] VITALS: O2SAT 96
[2022-10-19] MEDS: APIXABAN 2.5 MG TABLET PO SCH ×2 (08:47→21:09)
[2022-10-19] MEDS: PANTOPRAZOLE 40MG TABLET PO SCH ×2 (08:47→21:09)
[2022-10-19] MEDS: TIZANIDINE 4 MG TABLET PO SCH ×2 (08:47→21:10)
[2022-10-19] MEDS: METOPROLOL TAR 25 MG TAB PO SCH ×2 (08:47→17:18)
[2022-10-19] MEDS ORDERED: PANTOPRAZOLE 40MG TABLET PO ONE (08:48)
[2022-10-19] MEDS ORDERED: METOPROLOL TAR 25 MG TAB ONE (08:48)
--- NOTE | 2022-10-19 08:59 | P.PN ---
Subjective Date of Service: 10/19/22 Primary Care Provider: Fco Chief Complaint: atrial fib w/ rvr Subjective: Improving (heart rate well controlled on metoprolol and amiodarone) Review of Systems 10-point ROS is otherwise unremarkable General: Weakness Physical Examination - Vital Signs Temperature: 97.8 F Blood Pressure: 109/79 Pulse: 79 Respirations: 22 Pulse Ox (%): 97 - Physical Exam General: Alert, In no apparent distress HEENT: Atraumatic, PERRLA, EOMI Neck: Supple, JVD not distended Respiratory: Clear to auscultation bilaterally, Normal air movement Cardiovascular: Regular rate/rhythm, Normal S1 S2 Gastrointestinal: Normal bowel sounds, No tenderness Musculoskeletal: No tenderness Integumentary: No rashes Neurological: Normal speech, Normal tone, Normal affect Lymphatics: No axilla or inguinal lymphadenopathy - Studies Laboratory Data (last 24 hrs) 10/18/22 12:21: Sodium 137, Potassium 4.6, BUN 41 H, Creatinine 6.76 H*, Glucose 125 H, Magnesium 2.2, Total Bilirubin 1.2 H, AST 7 L, ALT 13, Alkaline Phosphatase 155 H 10/18/22 12:21: WBC 10.10, Hgb 9.3 L, Hct 29.1 L, Plt Count 176 Assessment And Plan - Current Problems (Diagnosis) (1) Atrial fibrillation Current Visit: Yes Status: Acute Plan: she is on amiodarone. Will restart the metoprol and digoxin. Consult to Dr. Chamberlain 10.19 well controlled. Will d/c amiodarone drip and start her on oral amiodarone. Qualifiers: Atrial fibrillation type: paroxysmal Qualified Code(s): I48.0 - Paroxysmal atrial fibrillation (2) CHF (congestive heart failure) Current Visit: No Status: Chronic Plan: currently not fluid overloaded. Volume status is well controlled with dialysis Qualifiers: Heart failure type: diastolic Heart failure chronicity: chronic Qualified Code(s): I50.32 - Chronic diastolic (congestive) heart failure (3) ESRD (end stage renal disease) on dialysis Current Visit: No Status: Chronic Plan: consult to Dr. Powers for dialysis managment Discharge Plan: Home Plan to discharge in: 24 Hours Physician Review: Patient Assessed, Agree with Above Assessment and Plan Critical Care: No Time Spent Managing PTS Care (In Minutes): 20
[2022-10-19] MEDS ORDERED: AMIODARONE HCL 200 MG TAB PO SCH (09:00)
[2022-10-19] MEDS ORDERED: DIGOXIN 0.125 MG TABLET PO SCH (09:00)
[2022-10-19] MEDS ORDERED: AMIODARONE HCL 200 MG TAB PO ONE ×2 (10:00)
[2022-10-19] MEDS ORDERED: MIDODRINE HCL 5 MG TABLET PO PRN (12:16)
[2022-10-19] MEDS ORDERED: INFLUENZA VACCINE (for 6+ mo) 0.5 ML DOSE IMVAC ONE (14:00)
--- NOTE | 2022-10-19 15:55 | CON ---
Date of Consultation: 10/19/2022 Reason For Consultation: Atrial fibrillation with rapid ventricular response. History Of Present Illness: This is a middle-aged female, well known to me. Has history of chronic atrial fibrillation, hypertension, diastolic heart failure. No history of coronary artery disease an d she has end-stage renal disease, on hemodialysis. Evaluated yesterday in my office and she was in atrial fibrillation, heart rate was in the 150s, appeared to be fluid overloaded with shortness of br eath and generally is very weak, so she was directly admitted to the hospital. Started on amiodarone drip. Heart rate has improved significantly and the patient, however, still short of breath. No ch est pain. Past Medical History: As outlined above in HPI. Medications: Refer to reconciliation sheet for detailed list. Allergies: LONG LIST OF ALLERGIES WAS REVIEWED. PLEASE REFER TO THE NURSE'S NOTES IN THE CHART. Family History: No premature coronary artery disease or cancer. Social History: She does not smoke or drink. Does not use any drugs. Review of Systems: All systems reviewed and they were negative except what mentioned in HPI. Physical Examination: Vital Signs: Temperature is 98.3, pulse 74, breathing at 22, blood pressure is 115/65, saturating 88 % on room air, and 97% with oxygen. General: Pleasant middle-aged female, appears generally weak and has some slight shortness of breath . Head and Neck: Pupils are equal, reactive to light. Intact eye movements. Positive JVD. No cervic al lymphadenopathy. Neck is supple. Thyroid is not enlarged. Lungs: Decreased breathing sounds with thin crackles in the bases. No accessory muscle use or muscl e retraction. Heart: Irregularly irregular. No extra sounds. Abdomen: Soft, nontender. Bowel sounds positive. No organomegaly. No masses or hernia. No rigidi ty or rebound. Extremities: No clubbing or cyanosis. 2+ pedal edema. Neurologic: Alert, awake, oriented x3. No acute focal deficits appreciated. Investigations: Troponin is 23. NT-proBNP is 39,000 range. BUN 41, creatinine 6.7, hemoglobin 9.3. Assessment And Recommendations: 1.Atrial fibrillation with rapid ventricular response, status post 24 hours IV amiodarone load. Thi s was discontinued today, started her on amiodarone 200 mg by mouth twice a day. Avoid beta-blockers as her blood pressure was significantly low, which led to discontinuation of her beta-gurmeet and al so recommend to stop digoxin due to the advanced kidney failure as digoxin toxicity is an extreme pos sibility due to the advanced kidney disease. After being on amiodarone for about a month, we will pl an for cardioversion. Also continue Eliquis 2.5 mg twice a day. 2.Acute on chronic diastolic heart failure. She is fluid overloaded. Consult Nephrology for dialys is. 3.End-stage renal disease. The patient needs dialysis today. She is significantly fluid overloaded . We will discuss with Nephrology. /MODL Voice ID: [id number] Report ID: [id number]
--- NOTE | 2022-10-19 17:47 | EKG ---
Test Date: 2022-10-18 Test Time: 11:12:05 Utility Mechanic Supervisor: MB MEASUREMENT RESULTS: Intervals: Rate: 134 [place]: QRSD: 76 QT: 264 QTc: 394 [place]: P: [place]: QRS: 105 T: -53 INTERPRETIVE STATEMENTS: Atrial fibrillation with rapid ventricular response Possible Right ventricular hypertrophy Nonspecific ST and T wave abnormality Abnormal ECG Compared to ECG 10/14/2022 20:08:52 Ventricular premature complex(es) no longer present ST (T wave) deviation still present Electronically Signed On 10-19-22 17:44:21 GRANTS ASSISTANT by Quentin Chamberlain
[2022-10-19 18:48] LABS: Hepatitis B surface AG Interp. Nonreactive (Nonreactive)
[2022-10-19 18:49] LABS: Hepatitis B Surface Ab - Quant < 3.10 mIU/mL (<8.0)
[2022-10-19] MEDS ORDERED: EPOETIN ALFA 10,000 UNIT/ML VIAL IV SCH (20:30)
[2022-10-19] MEDS: AMIODARONE HCL 200 MG TAB PO SCH (21:09)
--- NOTE | 2022-10-19 21:44 | CON ---
Date of Consultation: 10/19/2022 Chief Complaint: End-stage renal disease on hemodialysis, congestive heart failure, generalized weak ness, atrial fibrillation with rapid ventricular response, and shortness of breath. History Of Present Illness: The patient was admitted to the hospital after she was seen by her cardi ologist for office followup and she was found to have tachycardia, heart rate was in 150s. The patie nt was complaining of some shortness of breath. The patient was referred to the hospital for treatme nt of atrial fibrillation with rapid ventricular response. Recently the patient was taken off metopr olol because of bradycardia and she was hospitalized for bradycardia and transferred to [facility] for higher level of care in the recent past. The patient today is treated with amiodarone and beta gurmeet was initiated for heart rate control. The patient is complaining of some shortness of breat h, she is bedbound. She denies chest pain, although she is complaining of generalized weakness. She has chronic legs edema and was treated with Bumex as well as she is treated with dialysis 3 times pe r week for end-stage renal disease and during dialysis, ultrafiltration is done for volume control. The patient has intradialytic hypotension, chronic hypotension. She was complaining of some dizzines s and generalized weakness. She denies syncope or fall. Past Medical History: End-stage renal disease, chronic hypotension, hyperlipidemia, chronic anticoag ulation use, atrial fibrillation, chronic recurrent UTI, history of nephrolithiasis requiring stent p lacement and stent removal, congestive heart failure with diastolic dysfunction, atrial fibrillation chronic, dialysis access, tubal ligation, cholecystectomy, history of acute pancreatitis, and history of pneumonia. Family History: Sister had lung cancer and brain metastatic disease. Social History: She denies tobacco, alcohol, or illicit drugs. Physical Examination: General: Patient is awake, alert, follows commands. Eyes: Anicteric sclerae. EOMI. Ears, Nose, Mouth, And Throat: Oral mucosa moist. No pallor. Neck: Supple. No bruits. Lungs: Clear to auscultation. No wheezing. Cardiovascular: S1, S2. Irregularly irregular. Abdomen: Soft, benign, obese, nontender. No rebound. No guarding. No flank tenderness. Extremities: Slight edema. Moving extremities. Neuro: Cranial nerves intact. Psychiatric: Alert and oriented x3. Normal affect. Investigations: Sodium 137, potassium 4.6, BUN 41, creatinine 6.77, glucose 125, and magnesium 2.2. Hemoglobin 9.3, WBC 10.10, and platelet count 176,000. Impression And Plan: 1.End-stage renal disease, fluid overload, congestive heart failure with diastolic dysfunction, and volume overload. Patient will have urgent dialysis to control the volume overload and to provide rohan lysis with ultrafiltration. Patient has chronic hypotension and she will resume midodrine for blood pressure support to prevent intradialytic hypotension. 2.Congestive heart failure. Patient is undergoing cardiac workup to rule out acute coronary syndrom e. 3.Atrial fibrillation with rapid ventricular response. The patient was restarted on metoprolol and digoxin and she is currently on amiodarone. 4.Renal osteodystrophy. Continue renal diet and binders. 5.Anemia of chronic kidney disease. Monitor hemoglobin level. Continue SABIHA. EB/MODL Voice ID: [id number] Report ID: [id number]
[2022-10-20] MEDS: METOPROLOL TAR 25 MG TAB PO SCH ×2 (05:12→17:41)
--- NOTE | 2022-10-20 08:33 | P.DS ---
Admission Date: 10/19/22 Discharge Date: 10/20/22 Primary Care Provider: Fco Disposition: ROUTINE DISCHARGE Discharge Condition: GOOD Reason for Admission: atrial fib w/ rvr - Problems (1) Atrial fibrillation Current Visit: Yes Status: Acute Qualifiers: Atrial fibrillation type: paroxysmal Qualified Code(s): I48.0 - Paroxysmal atrial fibrillation (2) CHF (congestive heart failure) Current Visit: No Status: Chronic Qualifiers: Heart failure type: diastolic Heart failure chronicity: chronic Qualified Code(s): I50.32 - Chronic diastolic (congestive) heart failure (3) ESRD (end stage renal disease) on dialysis Current Visit: No Status: Chronic Brief History of Present Illness: Patient is here after going to Dr. Chamberlain office. The patient was just having some tiredness. However she was found to have a rate of 150's in Dr. Chamberlain's office and was sent to the hospital to start her on amiodarone. She states that her metoprolol was stopped when she was transfered for rvr on the last visit. This may be a reason for the rate. Hospital Course: Patient admitted for afib with RVR. Was started on an amiodarone drip, digoxin and metoprolol. Seen by Dr. Chamberlain. she will be sent home on oral amiodarone and low dose metoprolol Thank you for allowing me to take part in the patients care. Vital Signs/Physical Exam: Temp Pulse Resp BP Pulse Ox 98.6 F 97 H 18 116/65 95 10/20/22 08:00 10/20/22 08:00 10/20/22 08:00 10/20/22 08:00 10/20/22 08:00 General: Alert, In no apparent distress HEENT: Atraumatic, PERRLA, EOMI Neck: Supple, JVD not distended Respiratory: Clear to auscultation bilaterally, Normal air movement Cardiovascular: Regular rate/rhythm, Normal S1 S2 Gastrointestinal: Normal bowel sounds, No tenderness Musculoskeletal: No tenderness Integumentary: No rashes Neurological: Normal speech, Normal tone, Normal affect Lymphatics: No axilla or inguinal lymphadenopathy Laboratory Data at Discharge: WBC 10.10 K/uL (4.3-10.9) 10/18/22 12:21 Hgb 9.3 g/dL (12.0-15.0) L 10/18/22 12:21 Hct 29.1 % (36.0-45.0) L 10/18/22 12:21 Plt Count 176 K/uL (152-406) 10/18/22 12:21 Sodium 137 mmol/L (136-145) 10/18/22 12:21 Potassium 4.6 mmol/L (3.5-5.1) 10/18/22 12:21 BUN 41 mg/dL (7-18) H 10/18/22 12:21 Creatinine 6.76 mg/dL (0.55-1.02) H* 10/18/22 12:21 Glucose 125 mg/dL (74-106) H 10/18/22 12:21 Magnesium 2.2 mg/dL (1.6-2.4) 10/18/22 12:21 Total Bilirubin 1.2 mg/dL (0.2-1.0) H 10/18/22 12:21 AST 7 U/L (15-37) L 10/18/22 12:21 ALT 13 U/L (13-56) 10/18/22 12:21 Alkaline Phosphatase 155 U/L (45-117) H 10/18/22 12:21 Home Medications: Apixaban [Eliquis] 2.5 mg PO BID 05/19/22 Bumetanide 1 tab PO DAILY 05/19/22 Digoxin [Lanoxin] 1 tab PO T,TH,S 05/19/22 Metoprolol Tartrate 1 tab PO BID 05/19/22 Midodrine HCl 1 tab PO TID 05/19/22 Pantoprazole [Protonix Tab*] 1 tab PO BID 05/19/22 Sevelamer Carbonate [Renvela] 800 mg PO TID 05/19/22 Dicyclomine [Bentyl*] 1 tab PO TID PRN 09/01/22 Ondansetron [Zofran (Odt)*] 8 mg PO TID PRN 09/01/22 Tizanidine [Zanaflex*] 1 tab PO BID 09/01/22 Amiodarone HCl [Cordarone*] 200 mg PO BID 90 Days #180 tab 10/20/22 Metoprolol Tartrate [Lopressor*] 12.5 mg PO BID 6AM 6PM 90 Days #180 tab 10/20/22 New Medications: Amiodarone HCl [Cordarone*] 200 mg PO BID 90 Days #180 tab Metoprolol Tartrate [Lopressor*] 12.5 mg PO BID 6AM 6PM 90 Days #180 tab Diet: Renal Activity: Ad mari Followup: Ranjit Eagle MD [ACTIVE - CAN ADMIT] - 1 Week Quentin Chamberlain MD [Primary Care Provider] - 1 Week Physician Review: Patient Assessed, Agree with Above Assessment and Plan Time spent managing pt's care (in minutes): 30
[2022-10-20] MEDS: AMIODARONE HCL 200 MG TAB PO SCH ×2 (08:56→21:00)
[2022-10-20] MEDS: SEVELAMER CARBONATE 800 MG TABLET PO SCH ×3 (08:56→17:41)
[2022-10-20] MEDS: APIXABAN 2.5 MG TABLET PO SCH ×2 (08:56→21:00)
[2022-10-20] MEDS: PANTOPRAZOLE 40MG TABLET PO SCH ×2 (08:56→21:00)
[2022-10-20] MEDS: TIZANIDINE 4 MG TABLET PO SCH ×2 (08:57→21:00)
[2022-10-20] MEDS ORDERED: PROMETHAZINE 25 MG TABLET PO ONE (08:58)
[2022-10-20] MEDS ORDERED: FOLIC ACID 1 MG TABLET PO SCH (09:00)
[2022-10-20] MEDS ORDERED: AMIODARONE HCL 200 MG TAB PO SCH (09:00)
[2022-10-20] MEDS ORDERED: ACETAMINOPHEN 500 MG TAB PO ONE (16:00)
--- NOTE | 2022-10-20 16:31 | RAD REPORT ---
[facility]26 [facility] CLINICAL HISTORY: Shortness of breath COMPARISON: October 14, 2022 FINDINGS: Mild bilateral pulmonary opacities have resolved Heart is mildly enlarged. Elevation right hemidiaphragm persists Central venous catheter in place
[2022-10-20 17:05] LABS: Absolute Lymphocytes (CBC) 1.1 K/uL (0.7-4.9); Hematocrit 26.3 % (36.0-45.0); Lymphocytes % 10.8 % (15.3-44.8); MPV 7.9 fL (7.6-11.3); RBC Red Blood Cell Count 2.71 M/uL (3.86-4.86)
--- NOTE | 2022-10-20 17:39 | PN ---
Date of Progress Note: 10/20/2022 Subjective: Seen at bedside. She appears to be doing better. Heart rate has improved, but she is s till having shortness of breath. Review of Systems: No chest pain. Has shortness of breath and generally is weak. No nausea, vomiting, diarrhea. No ab dominal pain. No dysuria, polyuria, or urinary urgency. All other systems reviewed are negative. Physical Examination: Vital Signs: Temperature is 98.6, pulse is 97, breathing at 18, blood pressure 116/65, saturating 95 %. General: Pleasant middle-aged female, in no apparent distress. Head and Neck: Pupils are equal, reactive to light. Intact eye movements. No JVD. No cervical lym phadenopathy. Neck: Supple. Thyroid is not enlarged. Lungs: Decreased breathing sounds with crackles in both lung tovar. No accessory muscle use or mus eneida retraction. Heart: Irregular. No extra sounds. Abdomen: Soft, nontender. Bowel sounds positive. No organomegaly. No masses or hernia. No rigidi ty or rebound. Extremities: No clubbing, cyanosis. Positive edema. Neurologic: Alert, awake. No acute focal deficits appreciated. Investigations: Labs were reviewed. Assessment/recommendations: 1.Atrial fibrillation with rapid ventricular response. Heart rate has improved. Continue amiodaron e at 200 mg twice a day and metoprolol 12.5 mg twice a day. 2.Shortness of breath due to fluid retention. I do not believe the patient is ready to go home and recommend further evaluation by Nephrology to do [id number] sessions of dialysis to get her to more for dry weight as she is defini tely still fluid overloaded. SR/MODL Voice ID: [id number] Report ID: [id number]
[2022-10-20 17:42] LABS: Albumin 2.9 g/dL (3.4-5.0); Bilirubin Total 0.9 mg/dL (0.2-1.0); Potassium 4.4 mmol/L (3.5-5.1); Protein, Total 7.5 g/dL (6.4-8.2)
[2022-10-20] MEDS ORDERED: MIDODRINE HCL 5 MG TABLET PO ONE (18:16)
[2022-10-20] MEDS ORDERED: ALBUMIN HUMAN 25% 50 ML IV ONE (18:19)
[2022-10-20] MEDS ORDERED: MORPHINE 4 MG/ML SYR IV PRN (20:25)
[2022-10-20 20:30] VITALS: BP 122/74; TEMP 97
[2022-10-20] MEDS ORDERED: PROMETHAZINE 25 MG TABLET PO PRN (20:37)
--- NOTE | 2022-10-20 21:54 | PN ---
Date of Progress Note: 10/20/2022 Chief Complaint: End-stage renal disease, on hemodialysis; congestive heart failure; generalized wea kness. Subjective: The patient is undergoing cardiac workup. She was started on beta-gurmeet and digoxin f or rate control. She received amiodarone for atrial fibrillation with rapid ventricular response. T he patient has history of congestive heart failure, intradialytic hypotension, and chronic hypotensio n. She received dialysis yesterday with ultrafiltration, although she is not feeling better today. She has some shortness of breath and is to have urgent dialysis for volume control. Leg edema is in good control, although patient is having dyspnea on exertion and some orthopnea. Cardiology consulta tion was obtained during this admission. Review of Systems: The patient denies fever, chills. Denies cough. She complains of shortness of breath. Physical Examination: Lungs: Few rhonchi. Crackles at bases. Heart: S1, S2. Abdomen: Soft, obese. Extremities: Slight edema in both ankles. Impression: 1.End-stage renal disease. Continue daily dialysis treatment with ultrafiltration to control fluid overload and provide management for congestive heart failure with diastolic dysfunction. Plan is to use midodrine for blood pressure support during dialysis. The patient has chronic hypotension and in tradialytic hypotension. 2.Congestive heart failure. Patient is undergoing cardiac workup. 3.Atrial fibrillation with rapid ventricular rate on metoprolol and digoxin. Further recommendation from Cardiology. I recommend to check digoxin level. 4.Renal osteodystrophy. Continue renal diet and binders. 5.Anemia of chronic kidney disease. Continue SABIHA. EB/MODL Voice ID: [id number] Report ID: [id number]
[2022-10-21] MEDS ORDERED: METOCLOPRAMIDE 10MG/10ML UCUP PO SCH
--- NOTE | 2022-10-21 12:37 | P.PN ---
Date of Service: 10/21/22 Patient was discharged yesterday. Held at the request of Dr. Chamberlain. Wanted a round of dialysis due to sob. Per the overnight babysitter nurse she was eating a lot of fast food the Night before(high sodium food). Was dialysied by Dr. Powers. Was to be discharged Sat after her regular dialysis. However she wanted to leave and have dialysis at her regular center. Left before I responded to the night nurse. Hopefully she will follow up in the office.
== END 2022-10-20 22:00 | disposition left against medical advice (07) | DRG 291 ==
LOC: ER 10:53 → INTOOBSV 13:45 → ERHOLD 13:45 → 4TH 10-19 08:29 → OBSVTOIN 10-19 12:45
PROVIDERS: ADMIT Internal Medicine; ATTEND Internal Medicine
DX: I13.2 Hypertensive heart and chronic kidney disease with heart failure and with stage 5 chronic kidney disease, or end stage renal disease (principal); I50.33 Acute on chronic diastolic (congestive) heart failure; N18.6 End stage renal disease; I48.0 Paroxysmal atrial fibrillation; Z79.01 Long term (current) use of anticoagulants; Z99.2 Dependence on renal dialysis; Z99.81 Dependence on supplemental oxygen; E78.5 Hyperlipidemia, unspecified; I95.89 Other hypotension; Z98.51 Tubal ligation status
CPT/HCPCS: 36415; 71045; 80053; 83735; 83880; 84443; 84484; 85025; 86706; 87340; 87811; 90935; 93005; 96374; 96375; 99285; G0378; J0282; J1644; J2405; J7060; P9047; Q0169

== ENCOUNTER 2022-10-25 10:22 | Observation (INO) | payer OTHER, BC ==
--- OUTSIDE RECORDS SUMMARY | 2022-10-25 10:45 | XMS REPORT | Continuity of Care Document ---
:1955 Author Organization [facility] t Address [address] [place] [address] Care Team Providers Name Role Phone ANTONELLA CARRILLO Primary Care Physician Unavailable Adam King Attending Clinician Unavailable TRE PENNINGTON Attending Clinician Unavailable Yaritza Reid MD Attending Clinician Annalee KINNEY, Keith Pantoja Attending Clinician Tre Pennington MD Attending Clinician KORINA GUNN Attending Clinician Unavailable DO CY SOSA Attending Clinician Unavailable Weston KINNEY, Mary Godinez Attending Clinician [phone] Mary Heaton MD Attending Clinician Grzegorz KINNEY, [place] Gamboa Attending Clinician + [phone] Maddison Wharton MD Attending Clinician Taylor Cerna MA Attending Clinician Unavailable Quentin Chamberlain Attending Clinician Unavailable Ilana Attending Clinician Unavailable Jose C KINNEY, Taylor Laughlin Attending Clinician [phone] Laura Carbajal MD Attending Clinician Wendie KINNEY, Amos Attending Clinician Elroy Rutledge Attending Clinician Antonella Carrillo Attending Clinician Avis KINNEY, Ashley Klein Attending Clinician [phone] Vern KINNEY, Travon Hadley Attending Clinician Shaikh NIRMAL, Gutierrez Attending Clinician Jena Cool DO Attending Clinician Radu KINNEY, Puneet Goodson Attending Clinician Claudio KINNEY, Greg Carpenter Attending Clinician Mic Aiken Attending Clinician Unavailable Chris Carter Attending Clinician Unavailable Ras ROBERTS, Phuong Attending Clinician Unavailable Jermaine KINNEY, Francisco Sunshine Attending Clinician [place] KINNEY, Michelle Dowell Attending Clinician [phone] Hannah KINNEY, Robert Attending Clinician [phone] Nishi Shelton MD Attending Clinician Scott Flower MD Attending Clinician _ANNA_Porfirio_J Attending Clinician Unavailable MD ASHLEY MARTÍNEZ Attending Clinician Unavailable KRISTIAN KIRKLAND Attending Clinician Unavailable NILESH NATION Attending Clinician Unavailable COURTNEY WHEAT Attending Clinician Unavailable MD COURTNEY WHEAT Attending Clinician Unavailable MD MARY HEATON Attending Clinician Unavailable MD MICHELLE GOLDEN Attending Clinician Unavailable Scott Flower Attending Clinician SCOTT FLOWER Attending Clinician Unavailable Tyrell Fitzgerald Attending Clinician Valarie Teran Attending Clinician [phone] FABIOLA RASHID Attending Clinician Unavailable DR EDUIN [...] Clinician Unavailable MICHELLE GOLDEN Admitting Clinician Unavailable MEAGAN_MAYTE_Paddy Admitting Clinician Unavailable MD ASHLEY MARTÍNEZ Admitting Clinician Unavailable COURTNEY WHEAT Admitting Clinician Unavailable MD COURTNEY WHEAT Admitting Clinician Unavailable MARY HEATON Admitting Clinician Unavailable MD PATRICIO REID Admitting Clinician Unavailable MD MICHELLE GOLDEN Admitting Clinician Unavailable DR EDUIN BARRAGAN Admitting Clinician Unavailable Payers Payer Name Policy Type Policy Number Effective Date Expiration Date S raf MEDICARE A B [id number] 2021 00:00:00 [place] [id number] 2022 [place] 00:00:00 [place]: [id number] 2021 [employer] 00:00:00 Problems Condition Condition Condition Status Onset Resolution Last Treating Co mments Source Name Details Category Date Date Treatment Clinician Date Hypotensio Hypotensio Disease Active 2021-[address] [facility] [address] Chest pain Chest pain Disease Active 2021-10 [...] Chronic Chronic Disease Active Methodi venous venous 923 st stasis stasis 00:00: Hospita 00 l Abdominal Abdominal Disease Active Met hodi pain pain 05-19 st 00:00: Hospita 00 l CHF CHF Disease Active Methodi (congestiv (congestiv 6- st e heart e heart 00:00: Hospita failure) failure) 00 l Flank pain Flank pain Disease Active M ethodi 6-18 st 00:00: Hospita 00 l Renal Renal Disease Active Overview: Method i stone stone [address] 00:00: g of this Hospita 00 note l might be different from the original. Added automatic ally from request for surgery [id number] NATALYA NATALYA Diagnosis Active 2021-02-24 Mem oria Active 02-14 12:03:00 l 02/14/2021 00:00: Vicente n [facility] [place] Symptomati Symptomati Disease Active Overview : Methodi c anemia c anemia [address] 00:00: g of this Hospita 00 note l might be different from the original. Added automatic ally from request for surgery [id number] Acute Acute Disease Active Methodi gallstone gallstone [...] to 06-28 st Pseudomona Pseudomona 00:00: Ho spita s s 00 l COLON COLON Diagnosis Active 2016-11-17 [facility] oria CANCER CANCER 11-14 05:49:00 l SCREENING- SCREENING- 00:00: He sadiaann Z12.11 Z12.11 00 Active 11/14/2016 [place] R92.1 - R92.1 - Diagnosis Active 2016-04-16 [facility] MAMMOGRAPH MAMMOGRAPH 01-31 15:55:00 l IC IC 00:01: Denis CALCIFCN CALCIFCN 00 FOUND ON FOUND ON Active 02/01/2016 OPID [place] Z12.31 - Z12.31 - Diagnosis Active 2015-11-30 [facility] ENCNTR ENCNTR 11-12 07:08:00 l SCREEN SCREEN 00:01: Denis MAMMOGRAM MAMMOGRAM 00 FOR MA FOR MA Active 11/12/2015 OPID [place] RT WRIST RT WRIST Diagnosis Active 2016-12-28 [facility] DISTAL DISTAL 1- 02:03:00 l RADIUS RADIUS 09:00: Denis CLSD FX CLSD FX 00 [facility]22/[facility] Abnormal Abnormal Disease Active [...] Problem Active 2016-05-15 Me moria (disorder) (disorder) 06-10 00:23:22 l Active 00:00: [place] 06/10/2012 00 Problem 05/15/2016 Data migrated from [employer] on 03/20/15. MH OPID Brittany,MH OPID [place], SMR [place],SMR [facility] Cobalamin Cobalamin Disease Active [...] Data migrated from [employer] on 03/20/15. ANTHONY Soto, OPID [place], SMR [place],[facility] Calcificat Calcifica Problem Resolve 2022-04-22 Memoria ion of tion of d 03:11:55 l breast breast [place] (finding) (finding) Resolved Problem 04/22/2022 [facility], ANTHONY Soto, OPID [place], SMR [place],[facility], [place] Acute Acute Problem Active 2020-02-08 Memor ia urinary urinary 22:36:35 l tract tract [place] infection infection (disorder) (disorder) Active Problem 02/08/2020 Medical Group Chronic Chronic Problem Active 2020-02-08 Me moria renal renal 22:36:35 l impairment impairment He rmann (disorder) (disorder) Active Problem 02/08/2020 [facility] Group, ANTHONY Soto, OPID [place], SMR [place],[facility], [place] Benign Benign Problem Active 2022-04-22 Turner arnoldo essential essential 03:11:55 l hypertensi hypertensi He rmann on on (disorder) (disorder) Active Problem 04/22/2022 Medical Group, OPIEverette Soto, OPID [place], SMR [place],[facility], [place] Cardiorena Problem Active 2022-04-22 M emoria l syndrome Cardiorena 03:11:55 l (disorder) l syndrome He rmann (disorder) Active Problem 04/22/2022 Medical Group, OPID [place], [place] Chronic Chronic Problem Active 2022-04-22 Me moria kidney kidney 03:11:55 l disease disease Denis (disorder) (disorder) Active Problem 04/22/2022 [facility], OPID [place], [place] Chronic Chronic Problem Active 2022-04-22 Me moria kidney kidney 03:11:55 l disease disease Denis stage 3 stage 3 (disorder) (disorder) Active Problem 04/22/2022 [facility], OPID [place], [place] Chronic Chronic Problem Active 2022-04-22 Me moria pain pain 03:11:55 l (finding) (finding) Herm connie Active Problem 04/22/2022 [facility], OPID [place], [place] Dependence Dependenc Problem Active 2022-04-22 Memoria on e on 03:11:55 l supplement supplement He lea al oxygen al oxygen (finding) (finding) Active Problem 04/22/2022 [facility], [place] Edema of Edema of Problem Active 2022-04-22 Memoria lower lower 03:11:55 l extremity extremity Herm connie (finding) (finding) Active Problem 04/22/2022 [facility] Group, OPID [place], [place] Hypertensi Hypertens Problem Active 2022-04-22 Memoria ve satnam 03:11:55 l disorder, disorder, Herm connie systemic systemic arterial arterial (disorder) (disorder) Active Problem 04/22/2022 [facility] [place], OPID [place], [place] Hypertensi Problem Active 2022-04-22 M emoria ve renal Hypertensi 03:11:55 l disease ve renal Denis (disorder) disease (disorder) Active Problem 04/22/2022 Medical Group, OPID [place], [place] Lymphedema Problem Active 2022-04-22 M emoria of lower Lymphedema 03:11:55 l extremity of lower Karen nn (disorder) extremity (disorder) Active Problem 04/22/2022 [facility] Group, OPID [place], [place] Morbid Morbid Problem Active 2022-04-22 Turner arnoldo obesity obesity 03:11:55 l (disorder) (disorder) He rmann Active Problem 04/22/2022 Medical Group, OPID Brittany, OPID [place], SMR [place],[facility], [place] Post-disch Post-disc Problem Active 2022-04-22 Memoria arge harge 03:11:55 l follow-up follow-up Herm connie (finding) (finding) Active Problem 04/22/2022 Medical Group, [place] Stasis Stasis Problem Active 2022-04-22 Mem oria ulcer ulcer 03:11:55 l (disorder) (disorder) He rmann Active Problem 04/22/2022 Medical Group, OPID [place], [place] Swelling - Swelling Problem Active 2022-04-22 Memoria edema - - edema - 03:11:55 l symptom symptom [place] (finding) (finding) Active Problem 04/22/2022 Medical Group, OPID [place], [place] Kidney Kidney Problem Active 2016-11-20 Turner arnoldo disease disease 03:07:28 l (disorder) (disorder) He rmann Active Problem 11/20/2016 [place] RIGHT RIGHT Diagnosis Active 2016-03-09 Mem oria WRIST WRIST 15:06:00 l DISTAL DISTAL [place] RADIUS RADIUS CLSD FX CLSD FX Active [facility] DISTAL DISTAL Diagnosis Active 2016-04-21 Me moria RADIUS RADIUS 09:46:00 l CLSD FX CLSD FX [place] Active [facility] [place] [facility] Long-term Problem Active 2022-04-22 Me moria current Long-term 03:11:55 l use of current [place] drug use of therapy drug (situation therapy ) (situation ) Active Problem 04/22/2022 Medical Group Cholestero Cholester Problem 2016-01-01 Memoria l ol 05:02:18 l (substance (substance He rmann ) ) Problem 01/01/2016 [facility] Sleep Sleep Problem 2016-01-01 Memor ia apnea apnea 05:02:18 l (finding) (finding) Herm connie Problem 01/01/2016 <sup>2</howell p>does not use cpap [facility] ESRD (end ESRD (end Disease Active [facility] renal renal Medical disease) disease) Center on on dialysis dialysis Acute Acute Problem Resolve 2016-05-15 2016-05-15 Memoria otitis otitis d 4-24 00:23:22 00:23:22 l media media 00:00: [place] (disorder) (disorder) 00 Resolved 02/12/2013 Problem 05/15/2016 Data migrated from [facility] on 05/08/15. ANTHONY Soto, OPID [place],MH SMR [place],S[facility] History of Past Illness Condition Condition Condition Status Onset Resolution Last Treating Co mments Source Name Details Category Date Date Treatment Clinician Date 2018-nCoV 2018-nCoV Problem 2022-04-22 2022-04-22 Memoria acute acute 04-19 03:11:55 03:11:55 l respirator respirator 21:13: He lea y disease y disease 00 04/19/2022 [facility] Group Bronchitis Bronchiti Problem 2022-04-22 2022-04-22 Memoria , not s, not 04-19 03:11:55 03:11:55 l specified specified 21:13: Karoline rosales as acute as acute 00 or chronic or chronic 04/22/2022 Medical Group Other Other Problem 2020-102021-10-20 2021-10-20 M emoria abnormal abnormal 12-18 01:18:13 01:18:13 l glucose glucose 21:47: Denis 10/17/202110/20/2021 Medical Group Other long Other Problem 2020-102021-10-20 2021-10-20 Memoria 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 12-18 01:18:13 01:18:13 l (current) (current) 21:46: [...] 01:18:13 l unspecifie unspecifie 21:38: He lea gaviria d 00 10/17/2021 Medical Group Dependence Dependenc Problem [...] Active 2021-[address] [facility] acin ty to 2-03 [facility] [...] St ES 2-03 [facility] 00:00: Medical 00 [place] codeine DA Active [facility] 5-13 Clear 00:00: Rodriguez 00 [facility] sulfamet DA Active [facility] hoxazole 5-13 Clear 00:00: Rodriguez 00 [facility] trimetho DA Active [facility] prim 5-13 Clear 00:00: Rodriguez 00 [facility] Penicill DA Active U [facility] A ins 5-06 Clear 00:00: Rodriguez 00 [facility] cefepime DA Active U [facility] 5-06 Clear 00:00: Rodriguez 00 [facility] levoflox DA Active [facility] acin 5-06 Clear 00:00: Rodriguez 00 [facility] Sulfamet Propensi Active Other (See Unable [...] Memori a ins<sup> ins<sup> l 1</sup> 1</sup> [place] codeine< codeine< Active Memori a sup>2</s sup>2</s l up> up> [place] cefepime cefepime Active Memori a l [place] Levaquin Levaquin Active Memori a l [place] penicill penicill Active Memori a ins<sup> ins<sup> l 2</sup> 2</sup> Denis codeine codeine Active Memoria l [place] Bactrim Bactrim Active Memoria l [place] penicill penicill Active Memori a ins ins l [place] Family History Family Member Diagnosis Comments Start Date Stop Date Source Natural father Alcohol abuse [facility] Maternal grandfather [facility] Maternal grandmother No Known Problems [facility] Natural mother No Known Problems [facility] Paternal grandfather No Known Problems [facility] Paternal grandmother Heart disease [facility] Natural sister Cancer [facility] Social History Social Habit Start Date Stop Date Quantity Comments Source History [facility] Drinks History [facility] Alcohol intake 2022-08-26 2022-08-26 Ex-drinker [facility] 00:00:00 00:00:00 (finding) Hospital History SDOH 2021-07-13 2021-07-13 5 [facility] 00:00:00 00:00:00 Hospital History SDOH IPV [...] Methodi st Scarcity 00:00:00 00:00:00 Hospital History SDMO 2021-07-13 2021-07-13 2 [facility] Med 00:00:00 00:00:00 Hospital History SDMO 2021-07-13 2021-07-13 2 [facility] Non-Med 00:00:00 00:00:00 Hospita l History SDMO 2021-07-13 2021-07-13 2 [facility] Unable to 00:00:00 00:00:00 Hospita l Pay History SDMO 2021-07-13 2021-07-13 1 [facility] Places 00:00:00 00:00:00 Hospital Lived History [facility] 2021-07-13 2021-07-13 2 [facility] Homeless 00:00:00 00:00:00 Hospital Last Year Alcohol Comment 2021-02-03 2021-02-03 rarely [facility] 00:00:00 00:00:00 Hospital History [facility] 2020-12-17 2020-12-17 1 [facility] Frequency 00:00:00 00:00:00 Hospita l Social History 2020-09-15 2020-09-15 [facility] 15:59:50 15:59:50 Tobacco use and 2019-06-26 2019-06-26 Smokeless tobacco Me thodist exposure 00:00:00 00:00:00 non-user Hospital Sex Assigned At [address] 00:00[facility]00 [facility]00 [facility] Smoking Status Start Date Stop Date Source Social [facility] Medications Ordered Filled Start Stop Current [...] 5mg Take 1 [facility] (PROAMATINE 2 02-05 tablet (5 Pari kes ) 5 MG 00:00: 23:59 mg total) Medic al tablet 00 :00 by mouth 3 Center (three) times daily before meals for 60 days. midodrine 2021-10- Yes 5mg Take 1 [facility] (PROAMATINE 2 02-05 tablet (5 Pari kes ) 5 MG 00:00: 23:59 mg total) Medic al tablet 00 :00 by mouth 3 Center (three) times daily before meals for 60 days. midodrine 2021-10- No 10mg Q.[id number] Take [address] (PROAMATINE 11-27- [id number] by mouth 3 [facility] ) 10 MG 19:03: 00:00 3D (three) Medica l tablet 43 :00 times Center daily. digoxin 2021-10- No 125ug Take [address] (LANOXIN) 2 12-06 mcg by [facility] 0.125 MG 19:03: 00:00 mouth 3 Medic al tablet 43 :00 times per Center week . metoprolol 2021-10- No 25mg Q.5D Take [address] tartrate 2-06 by mouth 2 Luke s (LOPRESSOR) 19:03: 00:00 (two) Medi alexandre 25 MG 43 :00 times Center tablet daily. midodrine 2021-10- No 10mg Q.[id number] Take [address] (PROAMATINE 2-04 02- [id number] by mouth 3 [facility] ) 10 MG 19:03: 00:00 3D (three) Medica l tablet 43 :00 times Center daily. digoxin 2021-10- No 125ug Take [address] (LANOXIN) 2- 12-06 mcg by [facility]ukes 0.125 MG 19:03: 00:00 mouth 3 Medic al tablet 43 :00 times per Center week . metoprolol 2021-10- No 25mg Q.5D Take [address] tartrate 2-06 12-06 by mouth 2 Luke s (LOPRESSOR) 19:03: [...] Center tablet daily. midodrine 2021-10 No 10mg Q.[id number] Take [address] (PROAMATINE 11-27 [id number] by mouth 3 [facility] ) 10 MG [...] er mouth every 12 (twelve) hours. promethazin 2021-10 No 12.5mg Take [address] [...] Nausea for up to 15 days. promethazin 2021-10 No 12.5mg Take [address] e 2- 12-21 tablet [facility] (PHENERGAN) 00:00: 23:59 (12.5 mg M edical 12.5 MG 00 :00 total) by Center tablet mouth every 6 (six) hours as needed for Nausea for up to 15 days. apixaban 2021-10- No 2.5mg Q.5D Take 1 Metho di (ELIQUIS) 10-28-[address] 2.5 mg 10:03: 00:00 (2.5 [...] 11 evening. l sucroferric 2021-10 Yes 500mg Q.[id number] Chew 500 [facility]i oxyhydroxid 10-[id number] e 18:12: 3D (three) [...] QD Take 40 mg Methodi e 10-[address] (PROTONIX) 16:58: 00:00 daily. Hosp naye 40 MG EC 50 :00 l tablet pantoprazol 2021-10 Yes 40mg Q.5D Take 1 Meth aiden e 10-27 tablet (40 st (PROTONIX) 00:00: mg total) Ho spita 40 MG EC 00 by mouth 2 l tablet (two) times a day. acetaminoph 2021- [place] [id number] 1{tbl} Q.5D Take 1 Methodi en-codeine 06-[address] (TYLENOL 00:00: 04:59 mouth 2 Hospi ta WITH 00 :00 (two) l CODEINE #3) times a 300-30 mg day for 10 per tablet days .chronic pain. acetaminoph 2021- [place] [id number] 1{tbl} Q.5D Take 1 Methodi en-codeine 06-28 [...] times a day. sevelamer 2021- No 1600mg Q.[id number] Take 1,600 [facility] (RENVELA) 06-[id number] 800 mg 18:50: 00:00 3D mouth 3 Hospita tablet 58 :00 (three) l times a day with meals. oxyCODONE 2021- [place] [id number] 5mg Q4H Take 5 mg M ethodi (ROXICODONE 06-24-[address] ) 5 MG 18:50: [...] vomiting or nausea. promethazin 0 Yes 50mg Q.[id number] Take 1 Methodi e 7-28 [id number] tablet (50 st (PHENERGAN) 00:00: 3D mg total) H ospita 50 MG 00 by mouth 3 l tablet (three) times a day as needed for nausea or vomiting. diclofenac 0 Yes 75mg Q.5D Take 1 Metho di (VOLTAREN) 7-26 tablet (75 st 75 MG EC 00:00: mg total) Hosp naye tablet 00 by mouth 2 l (two) times a day. fluconazole 0 Yes 150mg Q7D Take 1 Met hodi (DIFLUCAN) 7-[address] 150 MG 00:00: (150 mg Hospita tablet 00 total) by l mouth once a week. On Sunday DULoxetine 2021- No 60mg QD Take 60 mg Methodi (CYMBALTA) 04-[address] 60 MG 18:01: 00:00 daily. Hospita capsule 54 :00 l gabapentin 2021-2021- No 300mg Q.5D Take 300 M ethodi (NEURONTIN) 04-29- mg by st 100 mg 18:01: 00:00 mouth 2 Hospita capsule 54 :00 (two) l times a day. allopurinoL 2021- No 100mg QD Take 100 [facility] (ZYLOPRIM) 04-29- mg by st 100 MG 18:01: 00:00 mouth Hospita tablet 54 :00 daily. l Zithromax 2022-0 Yes See [facility] [employer] 250 6-29 Instructio l mg oral 21:14: ns, Take 2 Herm connie tablet 00 tablets by mouth the first day then 1 tablet by mouth days 2-5. (Pt is on hemodialys is)., X 5 day, # 6 tab, 0 Refill(s), Pharmacy: [facility], 170.18, cm, 04/19/22 14:52:00 CDT, Height, 106.818, kg, 04/19/22 14... Zithromax 2022-0 Yes See [facility] [employer] 250 6-29 Instructio l mg oral 21:14: ns, Take 2 Herm connie tablet 00 tablets by mouth the first day then 1 tablet by mouth days 2-5. (Pt is on hemodialys is)., X 5 day, # 6 tab, 0 Refill(s), Pharmacy: [facility], 170.18, cm, 04/19/22 14:52:00 CDT, Height, 106.818, kg, 04/19/22 14... Zithromax 2-0 Yes See [facility] 250 6-29 Instructio l mg oral 21:14: ns, Take 2 Herm connie tablet 00 tablets by mouth the first day then 1 tablet by mouth days 2-5. (Pt is on hemodialys is)., X 5 day, # 6 tab, 0 Refill(s), Pharmacy: [facility], 170.18, cm, 04/19/22 14:52:00 CDT, Height, 106.818, kg, 04/19/22 14... Zithromax 2022-0 Yes See [facility] 250 6-29 Instructio l mg oral 21:14: ns, Take 2 Herm connie tablet 00 tablets by mouth the first day then 1 tablet by mouth days 2-5. (Pt is on hemodialys is)., X 5 day, # 6 tab, 0 Refill(s), Pharmacy: [facility], 170.18, cm, 04/19/22 14:52:00 CDT, Height, 106.818, kg, 04/19/22 14... Zithromax 2022-0 Yes See [employer] 250 6-29 Instructio l mg oral 21:14: ns, Take 2 Herm connie tablet 00 tablets by mouth the first day then 1 tablet by mouth days 2-5. (Pt is on hemodialys is)., X 5 day, # 6 tab, 0 Refill(s), Pharmacy: [facility], 170.18, cm, 04/19/22 14:52:00 CDT, Height, 106.818, kg, 04/19/22 14... [facility]22-[facility] Instructio l mg oral 21:14: ns, Take 2 Herm connie tablet 00 tablets by mouth the first day then 1 tablet by mouth days 2-5. (Pt is on hemodialys is)., X 5 day, # 6 tab, 0 Refill(s), Pharmacy: [facility], 170.18, cm, 04/19/22 14:52:00 CDT, Height, 106.818, kg, 04/19/22 14... Zithromax 2022-0 [facility] Instructio l mg oral 21:14: ns, Take 2 Herm connie tablet 00 tablets by mouth the first day then 1 tablet by mouth days 2-5. (Pt is on hemodialys is)., X 5 day, # 6 tab, 0 Refill(s), Pharmacy: [facility], 170.18, cm, 04/19/22 14:52:00 CDT, Height, 106.818, kg, 04/19/22 14... Velphoro 2022-0 Yes 500 mg, Memori a 6-29 CHEW, l 20:13: Daily, Denis 00 take with food, 0 Refill(s) Velphoro 2022-0 Yes 500 mg, Memori a 6-29 CHEW, l 20:13: Daily, [place] 00 take with food, 0 Refill(s) Velphoro 2022-0 Yes 500 mg, Memori a 6-29 CHEW, l 20:13: Daily, [place] 00 take with food, 0 Refill(s) Velphoro 2022-0 Yes 500 mg, Memori a 6-29 CHEW, l 20:13: Daily, take with food, 0 Refill(s) Velphoro 2-0 Yes 500 mg, Memori a 6-29 CHEW, l 20:13: Daily, [place] 00 take with food, 0 Refill(s) Velphoro 2022-0 Yes 500 mg, Memori a 6-29 CHEW, l 20:13: Daily, Denis 00 take with food, 0 Refill(s) Velphoro 2022-0 Yes 500 mg, Memori a 6-29 CHEW, l 20:13: Daily, Denis 00 take with food, 0 Refill(s) sevelamer 2-0 Yes 2,400 mg = Me moria carbonate 6-29 3 tab, PO, l 800 mg oral 20:12: TID-Meals, [place] tablet 00 # 270 tab, 0 Refill(s) sevelamer 2-0 Yes 2,400 mg = Me moria carbonate 6-29 3 tab, PO, l 800 mg oral 20:12: TID-Meals, [place] tablet 00 # 270 tab, 0 Refill(s) sevelamer 2-0 Yes 2,400 mg = Me moria carbonate 6-29 3 tab, PO, l 800 mg oral 20:12: TID-Meals, [place] tablet 00 # 270 tab, 0 Refill(s) sevelamer 2-0 Yes 2,400 mg = Me moria carbonate 6-29 3 tab, PO, l 800 mg oral 20:12: TID-Meals, Denis tablet 00 # 270 tab, 0 Refill(s) sevelamer 2-0 Yes 2,400 mg = Me moria carbonate 6-29 3 tab, PO, l 800 mg oral 20:12: TID-Meals, [place] tablet 00 # 270 tab, 0 Refill(s) sevelamer 2-0 Yes 2,400 mg = Me moria carbonate 6-29 3 tab, PO, l 800 mg oral 20:12: TID-Meals, Denis tablet 00 # 270 tab, 0 Refill(s) sevelamer 2022-0 Yes 2,400 mg = Me moria carbonate 6-29 3 tab, PO, l 800 mg oral 20:12: TID-Meals, Denis tablet 00 # 270 tab, 0 Refill(s) pantoprazol 2022-0 Yes 40 mg = 1 M emoria e 40 mg 6-29 tab, PO, l oral 20:11: Daily, 0 [place] enteric 00 Refill(s) coated tablet pantoprazol 2022-0 Yes 40 mg = 1 M emoria e 40 mg 6-29 tab, PO, l oral 20:11: Daily, 0 Denis enteric 00 Refill(s) coated tablet pantoprazol 2022-0 Yes 40 mg = 1 M emoria e 40 mg 6-29 tab, PO, l oral 20:11: Daily, 0 Denis enteric 00 Refill(s) coated tablet pantoprazol 2022-0 Yes 40 mg = 1 M emoria e 40 mg 6-29 tab, PO, l oral 20:11: Daily, 0 [place] enteric 00 Refill(s) coated tablet pantoprazol 2022-0 Yes 40 mg = 1 M emoria e 40 mg 6-29 tab, PO, l oral 20:11: Daily, 0 [place] enteric 00 Refill(s) coated tablet pantoprazol 2-0 Yes 40 mg = 1 M emoria e 40 mg 6-29 tab, PO, l oral 20:11: Daily, 0 [facility] 00 Refill(s) coated tablet pantoprazol 2022-0 Yes 40 mg = 1 M emoria e 40 mg 6-29 tab, PO, l oral 20:11: Daily, 0 [facility] 00 Refill(s) coated tablet oxyCODONE 5 [...] PO, TID, 0 [place] 00 Refill(s) methocarbam 2022-0 Yes 250 mg = Me moria ol 500 mg 6-29 0.5 tab, l oral tablet 20:05: PO, TID, 0 [place] 00 Refill(s) methocarbam 2022-0 Yes 250 mg = Me moria ol 500 mg 6-29 0.5 tab, l oral tablet 20:05: PO, TID, 0 [place] 00 Refill(s) methocarbam 2022-0 Yes 250 mg = Me moria ol 500 mg 6-29 0.5 tab, l oral tablet 20:05: PO, TID, 0 [place] 00 Refill(s) methocarbam 2022-0 Yes 250 mg = Me moria ol 500 mg 6-29 0.5 tab, l oral tablet 20:05: PO, TID, 0 [place] 00 Refill(s) methocarbam 2021-0 Yes 250 mg = Me moria ol 500 mg -29 0.5 tab, l oral tablet 20:05: PO, TID, 0 Refill(s) methocarbam 2021-0 Yes 250 mg = Me moria ol 500 mg 6-29 0.5 tab, l oral tablet 20:05: PO, TID, 0 Refill(s) Alphagan P 2021-0 Yes 1 drp, Memor ia 0.1% - OPTH, Q12H l ophthalmic 20:04: [facility] solution folic acid 2021-0 Yes 1 mg, PO, Me moria 6-29 Daily, 0 l 20:04: Refill(s) [place] Alphagan P 2021-0 Yes 1 drp, Memor ia 0.1% -29 OPTH, Q12H l ophthalmic 20:04: [place] solution folic acid 2021-0 Yes 1 mg, PO, Me moria 6-29 Daily, 0 l 20:04: Refill(s) [facility] Alphagan P 2021-0 Yes 1 drp, Memor ia 0.1% - OPTH, Q12H l ophthalmic 20:04: [place] solution folic acid 2021-0 Yes 1 mg, PO, Me moria 6-29 Daily, 0 l 20:04: Refill(s) [place] Alphagan P 2021-0 Yes 1 drp, Memor ia 0.1% - OPTH, Q12H l ophthalmic 20:04: [place] solution folic acid 2021-0 Yes 1 mg, PO, Me moria 6-29 Daily, 0 l 20:04: Refill(s) [place] Alphagan P 2021-0 Yes 1 drp, Memor ia 0.1% -29 OPTH, Q12H l ophthalmic 20:04: [place] solution 00 folic acid 2021-0 Yes 1 mg, PO, Me moria 6-29 Daily, 0 l 20:04: Refill(s) [place] Alphagan P 2021-0 Yes 1 drp, Memor ia 0.1% 6-29 OPTH, Q12H l ophthalmic 20:04: [place] solution folic acid 2022-0 Yes 1 mg, PO, Me moria 6- Daily, 0 l 20:04: Refill(s) [place] Alphagan P 2021-0 Yes 1 drp, Memor ia 0.1% 04-19 OPTH, Q12H l ophthalmic 20:04: [place] solution 00 folic acid 0 Yes 1 mg, PO, Me moria 04-19 Daily, 0 l 20:04: Refill(s) [facility] 00 Oxygen 2021-0 Yes 1 btl, Memoria 6- MISC, l 20:03: Daily, 2 [place] 00 liters, 0 Refill(s) Oxygen 2021-0 Yes 1 btl, Memoria 6-29 MISC, l 20:03: Daily, 2 [place] 00 liters, 0 Refill(s) Oxygen 2021-0 Yes 1 btl, Memoria 6-29 MISC, l 20:03: Daily, 2 [place] 00 liters, 0 Refill(s) Oxygen 2021-0 Yes 1 btl, Memoria 6- MISC, l 20:03: Daily, 2 [place] 00 liters, 0 Refill(s) Oxygen 2021-0 Yes 1 btl, Memoria 6-29 MISC, l 20:03: Daily, 2 [place] 00 liters, 0 Refill(s) Oxygen 2021-0 Yes 1 btl, Memoria 6-29 MISC, l 20:03: Daily, 2 [place] 00 liters, 0 Refill(s) Oxygen 2021-0 Yes 1 btl, Memoria 6- MISC, l 20:03: Daily, 2 [place] 00 liters, 0 Refill(s) Eliquis 2.5 0 Yes 2.5 mg, Mem oria mg oral 6-29 PO, Q12H, l tablet 20:02: tab, 0 [place] 00 Refill(s) Eliquis 2.5 2021-0 Yes 2.5 mg, Mem oria mg oral 6-29 PO, Q12H, l tablet 20:02: tab, 0 [place] 00 Refill(s) Eliquis 2.5 2021-0 Yes 2.5 mg, Mem oria mg oral 6-29 PO, Q12H, l tablet 20:02: tab, 0 [place] 00 Refill(s) Eliquis 2.5 2021-0 Yes 2.5 mg, Mem oria mg oral 6-29 PO, Q12H, l tablet 20:02: tab, 0 [place] 00 Refill(s) Eliquis 2.5 2021-0 Yes 2.5 mg, Mem oria mg oral 6-29 PO, Q12H, l tablet 20:02: tab, 0 [place] 00 Refill(s) Eliquis 2.5 2021-0 Yes 2.5 mg, Mem oria mg oral 6-29 PO, Q12H, l tablet 20:02: tab, 0 [place] 00 Refill(s) Eliquis 2.5 2021-0 Yes 2.5 mg, Mem oria mg oral 6-29 PO, Q12H, l tablet 20:02: tab, 0 [facility] 00 Refill(s) doxycycline 2021- No 200mg Q.5D Take 200 [facility] (VIBRAMYCIN 04-[address] ) 100 MG 13:07: [...] for 30 days. methocarbam 2021- No 250mg Q.[id number] Take 0.5 [facility] o[facility] 04-[id number] (ROBAXIN) 00:00: 04:59 3D (250 [...] day for 7 days. oxyCOD[place] 2021- [place] 98[address] 5mg Q4H Take 1 Meth aiden (ROXICODONE 04-15 tablet (5 st ) 5 MG 00:00: 04:59 mg total) Hospi ta immediate 00 :00 by mouth l release every 4 tablet (four) hours as needed for severe pain for up to 20 doses .acute pain. 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, Height, 107.301, kg, 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, Weight tizanidine 2021-0 Yes 4 mg = 1 Mem oria 4 mg oral 5-16 tab, PO, l tablet 18:09: Bedtime, [facility] 00 PRN NEEDED FOR MUSCLE SPASM, # 15 tab, 0 Refill(s), Pharmacy: [facility] #[id number], 165.1, cm, 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, Height, 107.301, kg, 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, Weight tizanidine 2022-0 Yes 4 mg = 1 Mem oria 4 mg oral 5-16 tab, PO, l tablet 18:09: Bedtime, [place] 00 PRN NEEDED FOR MUSCLE SPASM, # 15 tab, 0 Refill(s), [id number], 165.1, cm, 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, Height, 107.301, kg, 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, Weight tizanidine 2022-0 Yes 4 mg = 1 Mem oria 4 mg oral 5-16 tab, PO, l tablet 18:09: Bedtime, [place] 00 PRN NEEDED FOR MUSCLE SPASM, # 15 tab, 0 Refill(s), Pharmacy: [facility] #[id number], 165.1, cm, 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, Height, 107.301, kg, 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, Weight tizanidine 2-0 Yes 4 mg = 1 Mem oria 4 mg oral 5-16 tab, PO, l tablet 18:09: Bedtime, [facility] 00 PRN NEEDED FOR MUSCLE SPASM, # 15 tab, 0 Refill(s), Pharmacy: [facility] #[id number], 165.1, cm, 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, Weight Ondansetron 2022-0 Yes 4 mg = 1 Me moria 4 MG Oral 1-07 tab, PO, l Tablet 22:01: BID, X 5 [facility] [Zofran] 00 day, # 10 tab, 0 Refill(s), Pharmacy: [facility] STORE #[id number], 165.1, cm, 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, Height, 107.301, kg, 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, Weight Ondansetron 2022-0 Yes 4 mg = 1 Me moria 4 MG Oral 1-07 tab, PO, l Tablet 22:01: BID, X 5 [facility] [Zofran] 00 day, # 10 tab, 0 Refill(s), Pharmacy: [facility] STORE #[id number], 165.1, cm, 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, Height, 107.301, kg, 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, Weight Ondansetron 2022-0 Yes 4 mg = 1 Me moria 4 MG Oral 1-07 tab, PO, l Tablet 22:01: BID, X 5 [place] [Zofran] day, # 10 tab, 0 Refill(s), [id number], 165.1, cm, 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, Height, 107.301, kg, 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, Weight Ondansetron 2022-0 Yes 4 mg = 1 Me moria 4 MG Oral 1-07 tab, PO, l Tablet 22:01: BID, X 5 [place] [Zofran] day, # 10 tab, 0 Refill(s), [facility][id number], 165.1, cm, 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, Height, 107.301, kg, 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, Weight Ondansetron 2022-0 Yes 4 mg = 1 Me moria 4 MG Oral 1-07 tab, PO, l Tablet 22:01: BID, X 5 [place] [Zofran] 00 day, # 10 tab, 0 Refill(s), Pharmacy: [facility] #[id number], 165.1, cm, 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, Height, 107.301, kg, 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, Weight atorvastati 2020-10 Yes 10 mg = 1 M emoria n 10 mg 2-27 tab, PO, l oral tablet 21:45: Bedtime, # [place] 00 90 tab, 0 Refill(s), Pharmacy: [facility] STORE #[id number], 165.1, cm, 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, Height, 107.301, kg, 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, Weight atorvastati 2020-10 Yes 10 mg = 1 M emoria n 10 mg 2-27 tab, PO, l oral tablet 21:45: Bedtime, # [place] 00 90 tab, 0 Refill(s), Pharmacy: [facility] STORE #[id number], 165.1, cm, 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, Height, 107.301, kg, 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301, kg, 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, Weight atorvastati 2020-10 Yes 10 mg = 1 M emoria n 10 mg 2-27 tab, PO, l oral tablet 21:45: Bedtime, # [place] 00 90 tab, 0 Refill(s), Pharmacy: [facility] STORE #[id number], 165.1, cm, 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, Height, 107.301, kg, 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, Weight atorvastati 2020-10 Yes 10 mg = 1 M emoria n 10 mg 2-27 tab, PO, l oral tablet 21:45: Bedtime, # [place] 00 90 tab, 0 Refill(s), Pharmacy: [facility] STORE #[id number], 165.1, cm, 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, Height, 107.301, kg, 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, Weight atorvastati 2020-10 Yes 10 mg = 1 M emoria n 10 mg 2-27 tab, PO, l oral tablet 21:45: Bedtime, # [place] 00 90 tab, 0 Refill(s), Pharmacy: [facility] STORE #[id number], 165.1, cm, 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, Height, 107.301, kg, 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, Weight tizanidine 2020-10 Yes 4 mg = 1 Mem oria 4 mg oral 2-27 tab, PO, l tablet 21:40: Bedtime, [place] 00 PRN for muscle spasm, # 30 tab, 0 Refill(s), Pharmacy: [facility] STORE #[id number], 165.1, cm, 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, Height, 107.301, kg, 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, Weight Acetaminoph 2020-10 Yes 1 tab, PO, Memoria en 325 MG / 2-27 Q12H, PRN l tramadol 21:40: for pain, Herm connie hydrochlori 00 X 15 day, de 37.5 MG # 30 tab, Oral Tablet 0 [Ultracet] Refill(s), Pharmacy: [facility] STORE #[id number], 165.1, cm, 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, Height, 107.301, kg, 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, Weight tizanidine 2020-10 Yes 4 mg = 1 Mem oria 4 mg oral 2-27 tab, PO, l tablet 21:40: Bedtime, [place] 00 PRN for muscle spasm, # 30 tab, 0 Refill(s), Pharmacy: [facility] #[id number], 165.1, cm, 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, Height, 107.301, kg, 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, Weight Acetaminoph 2020-10 Yes 1 tab, PO, Memoria en 325 MG / 2-27 Q12H, PRN l tramadol 21:40: for pain, Herm connie hydrochlori 00 X 15 day, de 37.5 MG # 30 tab, Oral Tablet 0 [Ultracet] Refill(s), Pharmacy: [facility] ST[facility] #[id number], 165.1, cm, 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, Height, 107.301, kg, 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, Weight tizanidine 2020-10 Yes 4 mg = 1 Mem oria 4 mg oral 2-27 tab, PO, l tablet 21:40: Bedtime, [place] 00 PRN for muscle spasm, # 30 tab, 0 Refill(s), Pharmacy: [facility] ST[facility] #[id number], 165.1, cm, 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, Height, 107.301, kg, 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, Weight Acetaminoph 2020-10 Yes 1 tab, PO, Memoria en 325 MG / 2-27 Q12H, PRN l tramadol 21:40: for pain, Herm connie hydrochlori 00 X 15 day, de 37.5 MG # 30 tab, Oral Tablet 0 [Ultracet] Refill(s), Pharmacy: [facility] ST[facility] #[id number], 165.1, cm, 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, Height, 107.301, kg, 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, Weight tizanidine 2020-10 Yes 4 mg = 1 Mem oria 4 mg oral 2-27 tab, PO, l tablet 21:40: Bedtime, [place] 00 PRN for muscle spasm, # 30 tab, 0 Refill(s), Pharmacy: [facility] #[id number], 165.1, cm, 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, Height, 107.301, kg, 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, Weight Acetaminoph 2020-10 Yes 1 tab, PO, Memoria en 325 MG / 2-27 Q12H, PRN l tramadol 21:40: for pain, Herm connie hydrochlori 00 X 15 day, de 37.5 MG # 30 tab, Oral Tablet 0 [Ultracet] Refill(s), [id number], 165.1, cm, 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, Height, 107.301, kg, 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, Weight tizanidine 2020-10 Yes 4 mg = 1 Mem oria 4 mg oral 2-27 tab, PO, l tablet 21:40: Bedtime, [place] 00 PRN for muscle spasm, # 30 tab, 0 Refill(s), Pharmacy: [facility] #[id number], 165.1, cm, 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, Height, 107.301, kg, 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, Weight Acetaminoph 2020-10 Yes 1 tab, PO, Memoria en 325 MG / 2-27 Q12H, PRN l tramadol 21:40: for pain, Herm connie hydrochlori 00 X 15 day, de 37.5 MG # 30 tab, Oral Tablet 0 [Ultracet] Refill(s), Pharmacy: [facility] #[id number], 165.1, cm, 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, Height, 107.301, kg, 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, Weight tizanidine 2020-10 Yes 4 mg = 1 Mem oria 4 mg oral 2-27 tab, PO, l tablet 21:40: Bedtime, [place] 00 PRN for muscle spasm, # 30 tab, 0 Refill(s), Pharmacy: [facility] #[id number], 165.1, cm, 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, Height, 107.301, kg, 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, Weight Acetaminoph 2020-10 Yes 1 tab, PO, Memoria en 325 MG / 2-27 Q12H, PRN l tramadol 21:40: for pain, Herm connie hydrochlori 00 X 15 day, de 37.5 MG # 30 tab, Oral Tablet 0 [Ultracet] Refill(s), Pharmacy: [facility] ST[facility] #[id number], 165.1, cm, 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, Height, 107.301, kg, 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, Weight tizanidine 2020-10 Yes 4 mg = 1 Mem oria 4 mg oral 2-27 tab, PO, l tablet 21:40: Bedtime, [place] 00 PRN for muscle spasm, # 30 tab, 0 Refill(s), Pharmacy: [facility] STORE #[id number], 165.1, cm, 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, Height, 107.301, kg, 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, Weight Acetaminoph 2020-10 Yes 1 tab, PO, Memoria en 325 MG / 2-27 Q12H, PRN l tramadol 21:40: for pain, Herm connie hydrochlori 00 X 15 day, de 37.5 MG # 30 tab, Oral Tablet 0 [Ultracet] Refill(s), Pharmacy: [facility] ST[facility] #[id number], 165.1, cm, 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, Height, 107.301, kg, 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, Weight sevelamer 2020-10 Yes 1,600 mg = [...] Ointment 00 22 gm, 0 Refill(s), [facility][id number], 165.1, cm, 09/09/21 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, Height, 136.42, kg, 09/09/21 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, Weight Mupirocin 2020-10 Yes 1 appl, Memor ia 0.02 MG/MG 1-22 TOP, TID, l Topical 23:21: X 5 day, # Herm connie Ointment 00 22 gm, 0 Refill(s), [facility][id number], 165.1, cm, 09/09/21 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, Height, 136.42, kg, 09/09/21 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, Weight Mupirocin 2020-10 Yes 1 appl, Memor ia 0.02 MG/MG 1-22 TOP, TID, l Topical 23:21: X 5 day, # Herm connie Ointment 00 22 gm, 0 Refill(s), Pharmacy: [facility] #[id number], 165.1, cm, 09/09/21 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, Height, 136.42, kg, 09/09/21 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, Weight Mupirocin 2020-10 Yes 1 appl, Memor ia 0.02 MG/MG 1-22 TOP, TID, l Topical 23:21: X 5 day, # Herm connie Ointment 00 22 gm, 0 Refill(s), Pharmacy: [facility] STORE #[id number], 165.1, cm, 09/09/21 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1, cm, 09/09/21 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, Height, 136.42, kg, 09/09/21 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, Weight bumetanide 2020-10 Yes 2 mg = 1 Mem oria 2 mg oral 1-19 tab, PO, l tablet 21:11: Daily, # [place] 00 30 tab, 0 Refill(s) bumetanide 2020-10 Yes 2 mg = 1 Mem oria 2 mg oral 1-19 tab, PO, l tablet 21:11: Daily, # [place] 00 30 tab, 0 Refill(s) bumetanide 2020-10 [...] tab, PO, l tablet 21:11: Daily, # [place] 00 30 tab, 0 Refill(s) bumetanide 2020-10 Yes 2 mg = 1 Mem oria 2 mg oral 1-19 tab, PO, l tablet 21:11: Daily, # [place] 00 30 tab, 0 Refill(s) bumetanide 2020-10 Yes 2 mg = 1 [facility] 2 mg oral 1-19 tab, PO, l tablet 21:11: Daily, # [place] 00 30 tab, 0 Refill(s) gabapentin 2020-10 Yes 200 [...] 60 Vicente n 00 tab, 0 Refill(s) midodrine 2020-10 Yes 10mg Q.[id number] Take 10 mg [facility] (PROAMATINE 1-13 [id number] [address] mouth [address] st ) 10 MG 00:00: 3D (three) [facility]osp[facility] tablet 00 times a l day. BUMETanide 2020-10 Yes 2mg QD Take 2 mg Me thodi (BUMEX) 2 1-[address] MG tablet 00:00: every [facility]ospita 00 morning. l digOXIN 2020-10 Yes 125ug Q.[id number] Take 125 [facility] (LANOXIN) -[id number] 125 mcg 00:00: 3W mouth 3 [facility]ospita (0.125 mg) 00 (three) l tablet times a week. On dialysis , , Sunday carvediloL 2020-10- No [facility] (COREG) 11-02 02-28 st 3.125 MG 00:00: 00:00 Hospita tablet 00 :00 l ipratropium 2020-10- No [id number] .5mg Q.25D Take 2.5 [facility] (ATROVENT) 0-05 02-28 mL (0.[address] 0.02 % 00:00: 00:00 total) by Hospi ta nebulizer 00 :00 nebulizati l solution on 4 (four) times a day. QUEtiapine 0 Yes 1 tablet, Me moria 50 mg oral 3-30 once a l tablet 13:55: day, 0 [place] 00 Refill(s) torsemide 2020-0 Yes 1 tablet, Mem oria 20 mg oral 3-30 twice a l tablet 13:55: day, 0 [place] 00 Refill(s) QUEtiapine 2020-0 Yes 1 tablet, Me moria 50 mg oral 3-30 once a l tablet 13:55: day, 0 [place] 00 Refill(s) torsemide 2020-0 Yes 1 tablet, Mem oria 20 mg oral 3-30 twice a l tablet 13:55: day, 0 [place] 00 Refill(s) QUEtiapine 2020-0 Yes 1 tablet, Me moria 50 mg oral 3-30 once a l tablet 13:55: day, 0 [place] 00 Refill(s) torsemide 2020-0 Yes 1 tablet, Mem oria 20 mg oral 3-30 twice a l tablet 13:55: day, 0 [place] 00 Refill(s) QUEtiapine 2020-0 Yes 1 tablet, Me moria 50 mg oral 3-30 once a l tablet 13:55: day, 0 [place] 00 Refill(s) torsemide 2020-0 Yes 1 tablet, Mem oria 20 mg oral 3-30 twice a l tablet 13:55: day, 0 [place] 00 Refill(s) QUEtiapine 2021-0 Yes 1 tablet, Me moria 50 mg oral 3-30 once a l tablet 13:55: day, 0 [place] 00 Refill(s) torsemide 2021-0 Yes 1 tablet, Mem oria 20 mg oral 3-30 twice a l tablet 13:55: day, 0 [place] 00 Refill(s) QUEtiapine 2021-0 Yes 1 tablet, Me moria 50 mg oral 3-30 once a l tablet 13:55: day, 0 [place] 00 Refill(s) torsemide 2021-0 Yes 1 tablet, Mem oria 20 mg oral 3-30 twice a l tablet 13:55: day, 0 [place] 00 Refill(s) QUEtiapine 2021-0 Yes 1 tablet, Me moria 50 mg oral 3-30 once a l tablet 13:55: day, 0 [place] 00 Refill(s) torsemide 2021-0 Yes 1 tablet, [...] a l mEq oral 13:54: day, 0 [place] tablet, 00 Refill(s) extended release (KCL) potassium 2021-0 Yes 1 tablet, Mem oria chloride 20 3-30 once a l mEq oral 13:54: day, 0 [place] tablet, 00 Refill(s) extended release (KCL) potassium 2021-0 Yes 1 tablet, Mem oria chloride 20 3-30 once a l mEq oral 13:54: day, 0 [place] tablet, 00 Refill(s) extended release (KCL) potassium 2021-0 Yes 1 tablet, Mem o[facility] chloride 20 3-30 once a l mEq oral 13:54: day, 0 [place] tablet, 00 Refill(s) extended release (KCL) allopurinol [...] twice a l Tablet 13:53: day, 0 [place] [Eliquis] 00 Refill(s) gabapentin Yes 1 capsule, M emoria 300 MG Oral 3-30 twice a l Capsule 13:53: day, 0 [place] 00 Refill(s) metoprolol Yes 1 tablet, Me moria tartrate 50 3-30 Twice a l mg oral 13:53: day, 0 [place] tablet 00 Refill(s) midodrine 5 Yes 1 [...] once a l delayed 13:53: day, 0 [place] release 00 Refill(s) capsule apixaban 5 0 Yes 1 tablet, Me moria MG Oral 3-30 twice a l Tablet 13:53: day, 0 [place] [Eliquis] 00 Refill(s) gabapentin Yes 1 capsule, M emoria 300 MG Oral 3-30 twice a l Capsule 13:53: day, 0 [place] 00 Refill(s) metoprolol Yes 1 tablet, Me moria tartrate 50 3-30 Twice a l mg oral 13:53: day, 0 [place] tablet 00 Refill(s) midodrine 5 Yes 1 [...] twice a l Tablet 13:53: day, 0 [place] [Eliquis] 00 Refill(s) gabapentin Yes 1 capsule, [...] 3-30 tablet, l tablet 13:53: once a [place] 00 day, 0 Refill(s) carvedilol 2020-0 Yes [...] once a l delayed 13:53: day, 0 [place] release 00 Refill(s) capsule apixaban 5 Yes 1 tablet, Me moria MG Oral 3-30 twice a l Tablet 13:53: day, 0 [place] [Eliquis] 00 Refill(s) gabapentin 2020-0 Yes 1 capsule, M emoria 300 MG Oral 3-30 twice a l Capsule 13:53: day, 0 [place] 00 Refill(s) metoprolol 0 Yes 1 tablet, Me moria tartrate 50 3-30 Twice a l mg oral 13:53: day, 0 [place] tablet 00 Refill(s) midodrine 5 0 Yes 1 tablet, M emoria mg oral 3-30 twice a l tablet 13:53: day, 0 [place] 00 Refill(s) allopurinol 2020-0 Yes 1/2 [facility]ori [...] once a l delayed 13:53: day, 0 [place] release 00 Refill(s) capsule apixaban 5 0 [...] a l mg oral 13:53: day, 0 [place] tablet 00 Refill(s) midodrine 5 Yes 1 tablet, M emoria mg oral 3-30 twice a l tablet 13:53: day, 0 [place] 00 Refill(s) allopurinol Yes 1/2 Memori a 300 mg oral 3-30 tablet, l tablet 13:53: once a [place] 00 day, 0 Refill(s) carvedilol Yes 1 [...] twice a l Tablet 13:53: day, 0 [place] [Eliquis] 00 Refill(s) gabapentin 0 Yes 1 capsule, M emoria 300 MG Oral 3-30 twice a l Capsule 13:53: day, 0 [place] 00 Refill(s) metoprolol 0 Yes 1 tablet, Me moria tartrate 50 3-30 Twice a l mg oral 13:53: day, 0 [place] tablet 00 Refill(s) midodrine 5 0 Yes 1 tablet, M emoria mg oral 3-30 twice a l tablet 13:53: day, 0 [place] 00 Refill(s) allopurinol Yes 1/2 Memori a 300 mg oral 3-30 tablet, l tablet 13:53: once a [place] 00 day, 0 Refill(s) carvedilol Yes 1 tablet, Me moria 3.125 mg 3-30 twice a l oral tablet 13:53: day, 0 [facility] 00 Refill(s) Digoxin Yes 1 tablet, Memor ia 0.125 MG 3-30 once a l Oral Tablet 13:53: day, 0 [facility] 00 Refill(s) DULoxetine Yes 1 capsule, M emoria 60 mg oral 3-30 once a l delayed 13:53: day, 0 [place] release 00 Refill(s) capsule apixaban 5 Yes 1 tablet, Me moria MG Oral 3-30 twice a l Tablet 13:53: day, 0 [place] [Eliquis] 00 Refill(s) gabapentin Yes 1 capsule, M emoria 300 MG Oral 3-30 twice a l Capsule 13:53: day, 0 Denis 00 Refill(s) metoprolol Yes 1 tablet, Me moria tartrate 50 3-30 Twice a l mg oral 13:53: day, 0 [place] tablet 00 Refill(s) midodrine 5 Yes 1 [...] 0 [place] [Aldactone] 00 Refill(s) Digoxin 2020-1 Yes 0.125 mg, Memor ia 0.125 MG 1-25 PO, Daily, l Oral Tablet 17:13: # 30 tab, H ermann 00 0 Refill(s) Digoxin 2020-1 Yes 0.125 mg, Memor ia 0.125 MG 1-25 PO, Daily, l Oral Tablet 17:13: # 30 tab, H ermann 00 0 Refill(s) Digoxin 2020-1 Yes 0.125 mg, Memor ia 0.125 MG 1-25 PO, Daily, l Oral Tablet 17:13: # 30 tab, H ermann 00 0 Refill(s) Digoxin 2020-1 Yes 0.125 mg, Memor ia 0.125 MG 1-25 PO, Daily, l Oral Tablet 17:13: # 30 tab, H ermann 00 0 Refill(s) Digoxin 2020-1 Yes 0.125 mg, Memor ia 0.125 MG 1-25 PO, Daily, l Oral Tablet 17:13: # 30 tab, H ermann 00 0 Refill(s) Digoxin 2019-1 Yes 0.125 mg, Memor ia 0.125 MG 1-25 PO, Daily, l Oral Tablet 17:13: # 30 tab, H ermann 00 0 Refill(s) Digoxin 2020-1 Yes 0.125 mg, Memor ia 0.125 MG 1-25 PO, Daily, l Oral Tablet 17:13: # 30 tab, H ermann 00 0 Refill(s) Mupirocin 2019- Yes See Memoria 0.02 MG/MG 0-13 Instructio l Topical 15:44: ns, APPLY Karen nn Ointment 00 EXTERNALLY TO THE AFFECTED AREA TWICE DAILY, # 66 gm, 1 Refill(s), Pharmacy: [facility] #[id number], 170.18, cm, 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, Height, 164.318, kg, 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, Weight Mupirocin 2019- Yes See Memoria 0.02 MG/MG 0-13 Instructio l Topical 15:44: ns, APPLY Karen nn Ointment 00 EXTERNALLY TO THE AFFECTED AREA TWICE DAILY, # 66 gm, 1 Refill(s), Pharmacy: [facility] #[id number], 170.18, cm, 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, Height, 164.318, kg, 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, Weight Mupirocin 2019- Yes See Memoria 0.02 MG/MG 0-13 Instructio l Topical 15:44: ns, APPLY Karen nn Ointment 00 EXTERNALLY TO THE AFFECTED AREA TWICE DAILY, # 66 gm, 1 Refill(s), Pharmacy: [facility] #[id number], 170.18, cm, 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, Height, 164.318, kg, 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, Weight Mupirocin 2020- Yes See Memoria 0.02 MG/MG 0-13 Instructio l Topical 15:44: ns, APPLY Karen nn Ointment 00 EXTERNALLY TO THE AFFECTED AREA TWICE DAILY, # 66 gm, 1 Refill(s), [id number], 170.18, cm, 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, Height, 164.318, kg, 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, Weight Nitrofurant 2020-0 Yes 100 mg = 1 Memoria oin 100 MG 8-09 cap, PO, l Oral 17:57: BID, X 10 Denis Capsule 00 day, # 20 [Macrobid] cap, 0 Refill(s), [facility][id number], 170.18, cm, 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, Height, 164.318, kg, 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, Weight Nitrofurant 2020-0 Yes 100 mg = 1 Memoria oin 100 MG 8-09 cap, PO, l Oral 17:57: BID, X 10 [place] Capsule 00 day, # 20 [Macrobid] cap, 0 Refill(s), [facility][id number], 170.18, cm, 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, Height, 164.318, kg, 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, Weight Nitrofurant 2020-0 Yes 100 mg = 1 Memoria oin 100 MG 8-09 cap, PO, l Oral 17:57: BID, X 10 Denis Capsule 00 day, # 20 [Macrobid] cap, 0 Refill(s), [facility][id number], 170.18, cm, 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, Height, 164.318, kg, 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, Weight Nitrofurant 2020-0 Yes 100 mg = 1 Memoria oin 100 MG 8-09 cap, PO, l Oral 17:57: BID, X 10 [place] Capsule 00 day, # 20 [Macrobid] cap, 0 Refill(s), [facility][id number], 170.18, cm, 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, Height, 164.318, kg, 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, Weight Nitrofurant 2020-0 Yes 100 mg = 1 Memoria oin 100 MG 8-09 cap, PO, l Oral 17:57: BID, X 10 [place] Capsule 00 day, # 20 [Macrobid] cap, 0 Refill(s), Pharmacy: [facility] STORE #[id number], 170.18, cm, 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, Height, 164.318, kg, 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, Weight Nitrofurant 2020-0 Yes 100 mg = 1 Memoria oin 100 MG 8-09 cap, PO, l Oral 17:57: BID, X 10 Denis Capsule 00 day, # 20 [Macrobid] cap, 0 Refill(s), [facility][id number], 170.18, cm, 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, Height, 164.318, kg, 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, Weight Nitrofurant 2020-0 Yes 100 mg = 1 Memoria oin 100 MG 8-09 cap, PO, l Oral 17:57: BID, X 10 [place] Capsule day, # 20 [Macrobid] cap, 0 Refill(s), [facility][id number], 170.18, cm, 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, Height, 164.318, kg, 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, Weight lisinopril 2020-0 Yes 2.5 mg = 1 M emoria 2.5 mg oral 6-04 tab, PO, l tablet 23:26: Daily, # [place] 00 30 tab, 2 Refill(s), called to pharmacy lisinopril 2020-0 Yes 2.5 mg = 1 M emoria 2.5 mg oral 6-04 tab, PO, l tablet 23:26: Daily, # Denis 00 30 tab, 2 Refill(s), called to pharmacy lisinopril 2020-0 Yes 2.5 mg = 1 M emoria 2.5 mg oral 6-04 tab, PO, l tablet 23:26: Daily, # [place] 00 30 tab, 2 Refill(s), called to pharmacy lisinopril 2020-0 Yes 2.5 mg = 1 M emoria 2.5 mg oral 6-04 tab, PO, l tablet 23:26: Daily, # [place] 00 30 tab, 2 Refill(s), called to pharmacy lisinopril 2020-0 Yes 2.5 mg = 1 M emoria 2.5 mg oral 6-04 tab, PO, l tablet 23:26: Daily, # Denis 00 30 tab, 2 Refill(s), called to pharmacy lisinopril 2020-0 Yes 2.5 mg = 1 M emoria 2.5 mg oral 6-04 tab, PO, l tablet 23:26: Daily, # [place] 00 30 tab, 2 Refill(s), called to pharmacy lisinopril 2020-0 Yes 2.5 mg = 1 M emoria 2.5 mg oral 6-04 tab, PO, l tablet 23:26: Daily, # [place] 00 30 tab, 2 Refill(s), called to pharmacy calcitriol 2020-0 Yes = 1 cap, Mem oria 0.25 mcg 5-20 PO, Daily, l oral 12:18: # 90 cap, Denis capsule 00 1 Refill(s), [id number] calcitriol 2020-0 Yes = 1 cap, Mem oria 0.25 mcg 5-20 PO, Daily, l oral 12:18: # 90 cap, Denis capsule 00 1 Refill(s), Pharmacy: [facility] STORE #[id number] calcitriol 2020-0 Yes = 1 cap, Mem oria 0.25 mcg 5-20 PO, Daily, l oral 12:18: # 90 cap, [place] capsule 00 1 Refill(s), [id number] calcitriol 2020-0 Yes = 1 cap, Mem oria 0.25 mcg 5-20 PO, Daily, l oral 12:18: # 90 cap, [place] capsule 00 1 Refill(s), [facility][id number] calcitriol 2020-0 Yes = 1 cap, Mem oria 0.25 mcg 5-20 PO, Daily, l oral 12:18: # 90 cap, Denis capsule 00 1 Refill(s), [facility][id number] calcitriol 2020-0 Yes = 1 cap, Mem oria 0.25 mcg 5-20 PO, Daily, l oral 12:18: # 90 cap, Denis capsule 00 1 Refill(s), Pharmacy: [facility] STORE #[id number] calcitriol 2020-0 Yes = 1 cap, Mem oria 0.25 mcg 5-20 PO, Daily, l oral 12:18: # 90 cap, Denis capsule 00 1 Refill(s), Pharmacy: [facility] [employer] [facility] #[id number] calcitriol 2020-0 Yes = 1 cap, Mem oria 0.25 mcg 4-16 PO, Daily, l oral 16:37: # 90 [place] capsule 47 unknown unit, Pharmacy: [facility] [employer] [facility] #[id number] calcitriol 2020-0 Yes = 1 cap, Mem oria 0.25 mcg 4-16 PO, Daily, l oral 16:37: # 90 Denis capsule 47 unknown unit, Pharmacy: [facility] [employer] [facility] #[id number] calcitriol 2020-0 Yes = 1 cap, Mem oria 0.25 mcg 4-16 PO, Daily, l oral 16:37: # 90 [place] capsule 47 unknown unit, [facility] #[id number] calcitriol 2020-0 Yes = 1 cap, Mem oria 0.25 mcg 4-16 PO, Daily, l oral 16:37: # 90 [place] capsule 47 unknown unit, Pharmacy: [facility] [employer] [facility] #[id number] calcitriol 2020-0 Yes = 1 cap, Mem oria 0.25 mcg 4-16 PO, Daily, l oral 16:37: # 90 [place] capsule 47 unknown unit, [facility] #[id number] calcitriol 2020-0 Yes = 1 cap, Mem oria 0.25 mcg 4-16 PO, Daily, l oral 16:37: # 90 [place] capsule 47 unknown unit, Pharmacy: [facility] [employer] [facility] #[id number] calcitriol 2020-0 Yes = 1 cap, Mem oria 0.25 mcg 4-16 PO, Daily, l oral 16:37: # 90 [place] capsule 47 unknown unit, Pharmacy: [facility] [employer] [facility] #[id number] Furosemide 2020-0 Yes = 1 tab, Mem oria 40 MG Oral 4-13 PO, Every l Tablet 20:06: Other Day, Karen nn 19 # 45 tab, Pharmacy: [facility] [employer] [facility] #[id number] Furosemide 2020-0 Yes = 1 tab, Mem oria 40 MG Oral 4-13 PO, Every l Tablet 20:06: Other Day, [facility] 19 # 45 tab, Pharmacy: [facility] [employer] [facility] #[id number] Furosemide 2020-0 Yes = 1 tab, Mem oria 40 MG Oral 4-13 PO, Every l Tablet 20:06: Other Day, [facility] 19 # 45 tab, Pharmacy: [facility] #[id number] Furosemide 2020-0 Yes = 1 tab, Mem oria 40 MG Oral 4-13 PO, Every l Tablet 20:06: Other Day, [facility] 19 # 45 tab, Pharmacy: [facility] [employer] [facility] #[id number] Furosemide 2020-0 Yes = 1 tab, Mem oria 40 MG Oral 4-13 PO, Every l Tablet 20:06: Other Day, [facility] 19 # 45 tab, Pharmacy: [facility] #[id number] Furosemide 2020-0 Yes = 1 tab, Mem oria 40 MG Oral 4-13 PO, Every l Tablet 20:06: Other Day, [facility] 19 # 45 tab, Pharmacy: [facility] [employer] [facility] #[id number] Furosemide 2020-0 Yes = 1 tab, Mem oria 40 MG Oral 4-13 PO, Every l Tablet 20:06: Other Day, [facility] nn 19 # 45 tab, Pharmacy: [facility] [employer] [facility] #[id number] prednisolon 2020-0 Yes 1 drop in M emoria e acetate 4-10 each eye, l 10 MG/ML 20:53: once [facility] 00 daily, 0 Suspension Refill(s) bromfenac [...] 4-10 right eye, l Ophthalmic 20:53: once [place] Solution 00 daily, 0 [Prolensa] Refill(s) Furosemide 2020-0 Yes = 1 tab, Mem oria 40 MG Oral 1-23 PO, Every l Tablet 15:13: Other Day, Karen nn 34 # 45 tab, Pharmacy: [facility] #[id number] Furosemide 2020-0 Yes = 1 tab, Mem oria 40 MG Oral 1-23 PO, Every l Tablet 15:13: Other Day, Karen nn 34 # 45 tab, Pharmacy: [facility] #[id number] Furosemide 2020-0 Yes = 1 tab, Mem oria 40 MG Oral 1-23 PO, Every l Tablet 15:13: Other Day, Karen nn 34 # 45 tab, Pharmacy: [facility] #[id number] Furosemide 2020-0 Yes = 1 tab, Mem oria 40 MG Oral 1-23 PO, Every l Tablet 15:13: Other Day, Karen nn 34 # 45 tab, Pharmacy: [facility] #[id number] Furosemide 2020-0 Yes = 1 tab, Mem oria 40 MG Oral 1-23 PO, Every l Tablet 15:13: Other Day, Karen nn 34 # 45 tab, Pharmacy: [facility] #[id number] Furosemide 2020-0 Yes = 1 tab, Mem oria 40 MG Oral 1-23 PO, Every l Tablet 15:13: Other Day, Karen nn 34 # 45 tab, Pharmacy: [facility] #[id number] Furosemide 2020-0 Yes = 1 tab, Mem oria 40 MG Oral 1-23 PO, Every l Tablet 15:13: Other Day, Karen nn 34 # 45 tab, Pharmacy: [facility] [employer] [facility] [address] [place], [place] [address]rocin 2019 Yes See Memoria 0.02 MG/MG 2-27 Instructio l Topical 19:11: ns, # 66 Vicente n Ointment 15 gm, APPLY EXTERNALLY TO THE AFFECTED AREA TWICE DAILY, Pharmacy: [facility] [employer] [facility] #[id number] Mupirocin 2018-10 Yes See Memoria 0.02 MG/MG 2-27 Instructio l Topical 19:11: ns, # 66 Vicente n Ointment 15 gm, APPLY EXTERNALLY TO THE AFFECTED AREA TWICE DAILY, Pharmacy: [facility] #[id number] Mupirocin 2019- Yes See Memoria 0.02 MG/MG 2-27 Instructio l Topical 19:11: ns, # 66 Vicente n Ointment 15 gm, APPLY EXTERNALLY TO THE AFFECTED AREA TWICE DAILY, Pharmacy: [facility] #[id number] Mupirocin 2019 Yes See Memoria 0.02 MG/MG 2-27 Instructio l Topical 19:11: ns, # 66 [place] n Ointment 15 gm, APPLY EXTERNALLY TO THE AFFECTED AREA TWICE DAILY, Pharmacy: [facility] #[id number] Mupirocin 2018-10 Yes See Memoria 0.02 MG/MG 2-27 Instructio l Topical 19:11: ns, # 66 [place] n Ointment 15 gm, APPLY EXTERNALLY TO THE AFFECTED AREA TWICE DAILY, Pharmacy: [facility] #[id number] Mupirocin 2018-10 Yes See Memoria 0.02 MG/MG 2-27 Instructio l Topical 19:11: ns, # 66 [place] n Ointment 15 gm, APPLY EXTERNALLY TO THE AFFECTED AREA TWICE DAILY, Pharmacy: [facility] [employer] [facility] #[id number] Mupirocin 2018-10 Yes See Memoria 0.02 MG/MG 2-27 Instructio l Topical 19:11: ns, # 66 Vicente n Ointment 15 gm, APPLY EXTERNALLY TO THE AFFECTED AREA TWICE DAILY, Pharmacy: [facility] #[id number] Nitrofurant 2018-10 Yes 100 mg = 1 Memoria oin 100 MG 2-13 cap, PO, l Oral 01:44: BID, X 5 [place] Capsule 00 day, # 10 [[place] cap, 0 n] Refill(s), Pharmacy: [facility] #[id number] Nitrofurant 2018-10 Yes 100 mg = 1 Memoria oin 100 MG 2-13 cap, PO, l Oral 01:44: BID, X 5 [place] Capsule 00 day, # 10 [[place] cap, 0 n] Refill(s), Pharmacy: [facility] #[id number] Nitrofurant 2018-10 Yes 100 mg = 1 Memoria oin 100 MG 2-13 cap, PO, l Oral 01:44: BID, X 5 [place] Capsule 00 day, # 10 [[place] cap, 0 n] Refill(s), Pharmacy: [facility] #[id number] Nitrofurant 2018-10 Yes 100 mg = 1 Memoria oin 100 MG 2-13 cap, PO, l Oral 01:44: BID, X 5 [place] Capsule 00 day, # 10 [[place] cap, 0 n] Refill(s), Pharmacy: [facility] #[id number] Nitrofurant 2018-10 Yes 100 mg = 1 Memoria oin 100 MG 2-13 cap, PO, l Oral 01:44: BID, X 5 [place] Capsule 00 day, # 10 [[place] cap, 0 n] Refill(s), Pharmacy: [facility] #[id number] Nitrofurant 2018-10 Yes 100 mg = 1 Memoria oin 100 MG 2-13 cap, PO, l Oral 01:44: BID, X 5 [place] Capsule 00 day, # 10 [[place] cap, 0 n] Refill(s), Pharmacy: [facility] #[id number] Nitrofurant 2018-10 Yes 100 mg = 1 Memoria oin 100 MG 2-13 cap, PO, l Oral 01:44: BID, X 5 [place] Capsule 00 day, # 10 [[place] cap, 0 n] Refill(s), Pharmacy: [facility] #[id number] apixaban 2018-10 Yes 5 mg, PO, Me [...] ermann Bitartrate 00 5 MG Oral Tablet [[place] 5/325] apixaban 2018-10 Yes 5 mg, PO, [...] ermann Bitartrate 00 5 MG Oral Tablet [[place] 5/325] apixaban 5 2018-10 Yes 5 mg, [...] ermann Bitartrate 00 5 MG Oral Tablet [[place] 5/325] apixaban 5 2018-10 Yes 5 mg, [...] ermann Bitartrate 00 5 MG Oral Tablet [[place] 5/325] apixaban 5 2018-10 Yes 5 mg, [...] ermann Bitartrate 00 5 MG Oral Tablet [[place] 5/325] apixaban 5 2018-10 Yes 5 mg, [...] ermann Bitartrate 00 5 MG Oral Tablet [[place] 5/325] apixaban 5 2018-10 Yes 5 mg, [...] ermann Bitartrate 00 5 MG Oral Tablet [[place] 5/325] calcitriol 2018-10 Yes = 1 cap, Mem oria 0.25 mcg 0-11 PO, Daily, l oral 21:10: # 90 [place] capsule 30 unknown unit, Pharmacy: [facility] #[id number] calcitriol 2018-10 Yes = 1 cap, Mem oria 0.25 mcg 0-11 PO, Daily, l oral 21:10: # 90 [place] capsule 30 unknown unit, Pharmacy: [facility] [employer] [facility] #[id number] calcitriol 2018-10 Yes = 1 cap, Mem oria 0.25 mcg 0-11 PO, Daily, l oral 21:10: # 90 [place] capsule 30 unknown unit, Pharmacy: [facility] [employer] [facility] #[id number] calcitriol 2018-10 Yes = 1 cap, Mem oria 0.25 mcg 0-11 PO, Daily, l oral 21:10: # 90 [place] capsule 30 unknown unit, Pharmacy: [facility] [employer] [facility] #[id number] calcitriol 2018-10 Yes = 1 cap, Mem oria 0.25 mcg 0-11 PO, Daily, l oral 21:10: # 90 Denis capsule 30 unknown unit, Pharmacy: [facility] [employer] [facility] #[id number] calcitriol 2018-10 Yes = 1 cap, Mem oria 0.25 mcg 0-11 PO, Daily, l oral 21:10: # 90 [place] capsule 30 unknown unit, Pharmacy: [facility] [employer] [facility] #[id number] calcitriol 2018-10 Yes = 1 cap, Mem oria 0.25 mcg 0-11 PO, Daily, l oral 21:10: # 90 [place] capsule 30 unknown unit, Pharmacy: [facility] [employer] [facility] #[id number] gabapentin 2019-0 Yes 300 mg = 1 [...] tablet 02:39: # 90 tab, Vicente n Pharmacy: [facility] [employer] [facility] #[id number] allopurinol 2019-0 Yes = 1 tab, Me moria 300 mg oral 8-17 PO, Daily, l tablet 02:39: # 90 tab, Vicente davis [facility] #[id number] allopurinol 2019-0 Yes = 1 tab, Me moria 300 mg oral 8-17 PO, Daily, l tablet 02:39: # 90 tab, Vicente n Pharmacy: [facility] ST[facility] #[id number] allopurinol 2019-0 Yes = 1 tab, Me moria 300 mg oral 8-17 PO, Daily, l tablet 02:39: # 90 tab, Vicente n Pharmacy: [facility] STORE #[id number] allopurinol 2019-0 Yes = 1 tab, Me moria 300 mg oral 8-17 PO, Daily, l tablet 02:39: # 90 tab, Vicente n Pharmacy: [facility] [employer] [facility] #[id number] allopurinol 2019-0 Yes = 1 tab, Me moria 300 mg oral 8-17 PO, Daily, l tablet 02:39: # 90 tab, Vicente n Pharmacy: [facility] STORE #[id number] allopurinol 2019-0 Yes = 1 tab, Me moria 300 mg oral 8-17 PO, Daily, l tablet 02:39: # 90 tab Vicente n Pharmacy: [facility] [employer] [facility] #[id number] QUEtiapine 2019-0 Yes 50 mg = 1 [...] l oral tablet 15:07: ns, TAKE 1 [place] 35 TABLET BY MOUTH EVERY NIGHT AT BEDTIME, # 90 tab, 1 Refill(s), [facility] Systemsti Yes See Memori a n 40 mg 3-14 Instructio l oral tablet 15:07: ns, TAKE 1 Denis 35 TABLET BY MOUTH EVERY NIGHT AT BEDTIME, # 90 tab, 1 Refill(s), [facility] at[facility] Yes See Memori a n 40 mg 3-14 Instructio l oral tablet 15:07: ns, TAKE 1 [place] 35 TABLET BY MOUTH EVERY NIGHT AT BEDTIME, # 90 tab, 1 Refill(s), [facility] atorBookNowtati Yes See Memori a n 40 mg 3-14 Instructio l oral tablet 15:07: ns, TAKE 1 Denis 35 TABLET BY MOUTH EVERY NIGHT AT BEDTIME, # 90 tab, 1 Refill(s), [facility] atorvastati Yes See Memori a n 40 mg 3-14 Instructio l oral tablet 15:07: ns, TAKE 1 [place] 35 TABLET BY MOUTH EVERY NIGHT AT BEDTIME, # 90 tab, 1 Refill(s), [address] See Memori a n 40 mg 3-14 Instructio l oral tablet 15:07: ns, TAKE 1 Denis 35 TABLET BY MOUTH EVERY NIGHT AT BEDTIME, # 90 tab, 1 Refill(s), Pharmacy: [place] [address] [facility] Yes See Memori a n 40 mg 3-14 Instructio l oral tablet 15:07: ns, TAKE 1 [place] 35 TABLET BY MOUTH EVERY NIGHT AT BEDTIME, # 90 tab, 1 Refill(s), Pharmacy: [address] Yes See [facility] 5 mg oral 3-14 Instructio l tablet 15:07: ns, TAKE 1 [facility] 33 TABLET BY MOUTH EVERY DAY, # 90 tab, 1 Refill(s), Pharmacy: [address] Yes See [facility] 5 mg oral 3-14 Instructio l tablet 15:07: ns, TAKE 1 [facility] 33 TABLET BY MOUTH EVERY DAY, # 90 tab, 1 Refill(s), Pharmacy: [address] Yes See [facility] 5 mg oral 3-14 Instructio l tablet 15:07: ns, TAKE 1 [facility] nn 33 TABLET BY MOUTH EVERY DAY, # 90 tab, 1 Refill(s), Pharmacy: [address] Yes See [facility] 5 mg oral 3-14 Instructio l tablet 15:07: ns, TAKE 1 Karen nn 33 TABLET BY MOUTH EVERY DAY, # 90 tab, 1 Refill(s), [facility] [place] [address] [facility] See [facility] 5 mg oral 3-14 Instructio l tablet 15:07: ns, TAKE 1 Karen nn 33 TABLET BY MOUTH EVERY DAY, # 90 tab, 1 Refill(s), Pharmacy: [place] [address] amLODIPine Yes See [facility] 5 mg oral 3-14 Instructio l tablet 15:07: ns, TAKE 1 Karen nn 33 TABLET BY MOUTH EVERY DAY, # 90 tab, 1 Refill(s), Pharmacy: [facility] [employer] [facility] [place] [address] amLODIPine Yes See [facility] 5 mg oral 3-14 Instructio l tablet 15:07: ns, TAKE 1 Karen nn 33 TABLET BY MOUTH EVERY DAY, # 90 tab, 1 Refill(s), Pharmacy: [facility] [employer] [facility] [place] [address] lisinopril Yes See [facility] 5 mg oral 8-21 Instructio l tablet 19:00: ns, TAKE 1 Karen nn 30 TABLET BY MOUTH DAILY, # 90 tab, 1 Refill(s), Pharmacy: [facility] [employer] [facility] [place] [address] lisinopril Yes See [facility] 5 mg oral 8-21 Instructio l tablet 19:00: ns, TAKE 1 Karen nn 30 TABLET BY MOUTH DAILY, # 90 tab, 1 Refill(s), Pharmacy: [facility] [place] [address] lisinopril Yes See Memoria 5 mg oral 8-21 Instructio l tablet 19:00: ns, TAKE 1 Karen nn 30 TABLET BY MOUTH DAILY, # 90 tab, 1 Refill(s), Pharmacy: [facility] [place] [address] lisinopril Yes See Memoria 5 mg oral 8-21 Instructio l tablet 19:00: ns, TAKE 1 Karen nn 30 TABLET BY MOUTH DAILY, # 90 tab, 1 Refill(s), Pharmacy: [facility] [place] [address] lisinopril Yes See Memoria 5 mg oral 8-21 Instructio l tablet 19:00: ns, TAKE 1 Karen nn 30 TABLET BY MOUTH DAILY, # 90 tab, 1 Refill(s), Pharmacy: [facility] [place] [address] lisinopril Yes See Memoria 5 mg oral 8-21 Instructio l tablet 19:00: ns, TAKE 1 Karen nn 30 TABLET BY MOUTH DAILY, # 90 tab, 1 Refill(s), Pharmacy: [facility] [place] [address] lisinopril Yes See Memoria 5 mg oral 8-21 Instructio l tablet 19:00: ns, TAKE 1 Karen nn 30 TABLET BY MOUTH DAILY, # 90 tab, 1 Refill(s), Pharmacy: [address] Yes See Memori a n 40 mg 8-21 Instructio l oral tablet 18:50: ns, TAKE 1 [place] 45 TABLET BY MOUTH EVERY NIGHT AT BEDTIME, # 30 tab, 5 Refill(s), Pharmacy: [address] Yes See Memori a n 40 mg 8-21 Instructio l oral tablet 18:50: ns, TAKE 1 Denis 45 TABLET BY MOUTH EVERY NIGHT AT BEDTIME, # 30 tab, 5 Refill(s), Pharmacy: [address] Yes See Memori a n 40 mg 8-21 Instructio l oral tablet 18:50: ns, TAKE 1 Denis 45 TABLET BY MOUTH EVERY NIGHT AT BEDTIME, # 30 tab, 5 Refill(s), Pharmacy: [address] Yes See Memori a n 40 mg 8-21 Instructio l oral tablet 18:50: ns, TAKE 1 Denis 45 TABLET BY MOUTH EVERY NIGHT AT BEDTIME, # 30 tab, 5 Refill(s), Pharmacy: [address] Yes See Memori a n 40 mg 8-21 Instructio l oral tablet 18:50: ns, TAKE 1 Denis 45 TABLET BY MOUTH EVERY NIGHT AT BEDTIME, # 30 tab, 5 Refill(s), Pharmacy: [address] Yes See Memori a n 40 mg 8-21 Instructio l oral tablet 18:50: ns, TAKE 1 Denis 45 TABLET BY MOUTH EVERY NIGHT AT BEDTIME, # 30 tab, 5 Refill(s), Pharmacy: [address] Yes See Memori a n 40 mg 8-21 Instructio l oral tablet 18:50: ns, TAKE 1 Denis 45 TABLET BY MOUTH EVERY NIGHT AT BEDTIME, # 30 tab, 5 Refill(s), Pharmacy: [place] [address] amLODIPine Yes See Memoria 5 mg oral 8-21 Instructio l tablet 18:50: ns, TAKE 1 Karen nn 41 TABLET BY MOUTH EVERY DAY, # 30 tab, 5 Refill(s), Pharmacy: [place] [address] amLODIPine Yes See Memoria 5 mg oral 8-21 Instructio l tablet 18:50: ns, TAKE 1 Karen nn 41 TABLET BY MOUTH EVERY DAY, # 30 tab, 5 Refill(s), Pharmacy: [place] [address] amLODIPine Yes See Memoria 5 mg oral 8-21 Instructio l tablet 18:50: ns, TAKE 1 Karen nn 41 TABLET BY MOUTH EVERY DAY, # 30 tab, 5 Refill(s), Pharmacy: [place] [address] amLODIPine Yes See Memoria 5 mg oral 8-21 Instructio l tablet 18:50: ns, TAKE 1 Karen nn 41 TABLET BY MOUTH EVERY DAY, # 30 tab, 5 Refill(s), Pharmacy: [place] [address] amLODIPine Yes See Memoria 5 mg oral 8-21 Instructio l tablet 18:50: ns, TAKE 1 Karen nn 41 TABLET BY MOUTH EVERY DAY, # 30 tab, 5 Refill(s), Pharmacy: [place] [address] amLODIPine Yes See Memoria 5 mg oral 8-21 Instructio l tablet 18:50: ns, TAKE 1 Karen nn 41 TABLET BY MOUTH EVERY DAY, # 30 tab, 5 Refill(s), Pharmacy: [place] [address] amLODIPine Yes See Memoria 5 mg oral 8-21 Instructio l tablet 18:50: ns, TAKE 1 Karen nn 41 TABLET BY MOUTH EVERY DAY, # 30 tab, 5 Refill(s), Pharmacy: [place] [address] lisinopril No See Memoria 5 mg oral 7-31 Instructio l tablet 15:28: ns, # 90 [place] 34 tab, TAKE 1 TABLET BY MOUTH DAILY, Pharmacy: [place] [address] lisinopril No See Memoria 5 mg oral 7-31 Instructio l tablet 15:28: ns, # 90 Denis 34 tab, TAKE 1 TABLET BY MOUTH DAILY, Pharmacy: [place] [address] lisinopril No See Memoria 5 mg oral 7-31 Instructio l tablet 15:28: ns, # 90 [place] 34 tab, TAKE 1 TABLET BY MOUTH DAILY, Pharmacy: [facility] [place] [address] lisinopril 2017-0 No See Memoria 5 mg oral 7-31 Instructio l tablet 15:28: ns, # 90 [place] 34 tab, TAKE 1 TABLET BY MOUTH DAILY, Pharmacy: [facility] [place] [address] lisinopril 0 No See Memoria 5 mg oral 7-31 Instructio l tablet 15:28: ns, # 90 [place] 34 tab, TAKE 1 TABLET BY MOUTH DAILY, Pharmacy: [facility] [place] [address] lisinopril 0 No See Memoria 5 mg oral 7-31 Instructio l tablet 15:28: ns, # 90 [place] 34 tab, TAKE 1 TABLET BY MOUTH DAILY, Pharmacy: [facility] [place] [address] lisinopril 0 No See Memoria 5 mg oral 7-31 Instructio l tablet 15:28: ns, # 90 [place] 34 tab, TAKE 1 TABLET BY MOUTH DAILY, Pharmacy: [facility] [place] [address] allopurinol 2017-0 No 300 mg = 1 Memoria 300 mg oral 5-10 tab, PO, l tablet 13:59: Daily, # [place] 00 90 tab, 1 Refill(s), Pharmacy: [facility] [place] [address] allopurinol No 300 mg = 1 Memoria 300 mg oral 5-10 tab, PO, l tablet 13:59: Daily, # [place] 00 90 tab, 1 Refill(s), Pharmacy: [facility] [place] [address] allopurinol 2017-0 No 300 mg = 1 Memoria 300 mg oral 5-10 tab, PO, l tablet 13:59: Daily, # Denis 00 90 tab, 1 Refill(s), Pharmacy: [facility] [place] [address] allopurinol No 300 mg = 1 Memoria 300 mg oral 5-10 tab, PO, l tablet 13:59: Daily, # Denis 00 90 tab, 1 Refill(s), Pharmacy: [facility] [place] [address] allopurinol 2017-0 No 300 mg = 1 Memoria 300 mg oral 5-10 tab, PO, l tablet 13:59: Daily, # [place] 00 90 tab, 1 Refill(s), Pharmacy: [facility] [place] [address] allopurinol 2018-0 No 300 mg = 1 Memoria 300 mg oral 5-10 tab, PO, l tablet 13:59: Daily, # [place] 00 90 tab, 1 Refill(s), Pharmacy: [place] [address] allopurinol No 300 mg = 1 Memoria 300 mg oral 5-10 tab, PO, l tablet 13:59: Daily, # [place] 00 90 tab, 1 Refill(s), Pharmacy: [facility] [place] [address] lisinopril No See Memoria 5 mg oral 5-01 Instructio l tablet 12:38: ns, # 90 Denis 18 tab, TAKE 1 TABLET BY MOUTH DAILY, Pharmacy: [place] [address] ALLOPURINOL Yes See Memori a 300MG 5-01 Instructio l TABLETS 12:38: ns, # 90 [place] n 18 tab, TAKE 1 TABLET BY MOUTH DAILY, Pharmacy: [facility] [place] [address] lisinopril No See Memoria 5 mg oral 5-01 Instructio l tablet 12:38: ns, # 90 [place] 18 tab, TAKE 1 TABLET BY MOUTH DAILY, Pharmacy: [facility] [place] [address] ALLOPURINOL Yes See Memori a 300MG 5-01 Instructio l TABLETS 12:38: ns, # 90 [place] 18 tab, TAKE 1 TABLET BY MOUTH DAILY, Pharmacy: [facility] [place] [address] lisinopril No See Memoria 5 mg oral 5-01 Instructio l tablet 12:38: ns, # 90 Denis 18 tab, TAKE 1 TABLET BY MOUTH DAILY, Pharmacy: [facility] [place] [address] ALLOPURINOL Yes See Memori a 300MG 5-01 Instructio l TABLETS 12:38: ns, # 90 [place] 18 tab, TAKE 1 TABLET BY MOUTH DAILY, Pharmacy: [facility] [place] [address] lisinopril No See Memoria 5 mg oral 5-01 Instructio l tablet 12:38: ns, # 90 [place] 18 tab, TAKE 1 TABLET BY MOUTH DAILY, Pharmacy: [facility] [place] [address] ALLOPURINOL [id number] Yes See Memori a 300MG 5-01 Instructio l TABLETS 12:38: ns, # 90 [place] 18 tab, TAKE 1 TABLET BY MOUTH DAILY, Pharmacy: [facility] [place] [address] lisinopril No See Memoria 5 mg oral 5-01 Instructio l tablet 12:38: ns, # 90 [place] 18 tab, TAKE 1 TABLET BY MOUTH DAILY, Pharmacy: [place] [address] ALLOPURINOL Yes See Memori a 300MG 5-01 Instructio l TABLETS 12:38: ns, # 90 [place] 18 tab, TAKE 1 TABLET BY MOUTH DAILY, Pharmacy: [facility] [place] [address] lisinopril No See Memoria 5 mg oral 5-01 Instructio l tablet 12:38: ns, # 90 [place] 18 tab, TAKE 1 TABLET BY MOUTH DAILY, Pharmacy: [facility] [place] [address] ALLOPURINOL Yes See Memori a 300MG 5-01 Instructio l TABLETS 12:38: ns, # 90 [place] 18 tab, TAKE 1 TABLET BY MOUTH DAILY, Pharmacy: [facility] [place] [address] lisinopril No See Memoria 5 mg oral 5-01 Instructio l tablet 12:38: ns, # 90 Denis 18 tab, TAKE 1 TABLET BY MOUTH DAILY, Pharmacy: [facility] [place] [address] ALLOPURINOL Yes See Memori a 300MG 5-01 Instructio l TABLETS 12:38: ns, # 90 [place] 18 tab, TAKE 1 TABLET BY MOUTH DAILY, Pharmacy: [facility] [place] [address] calcitriol Yes 0.25 Memoria 0.25 mcg 3-28 microgram l oral 13:49: = 1 cap, Denis capsule 00 PO, Daily, # 90 cap, 3 Refill(s), Pharmacy: [facility] [place] [address] calcitriol Yes 0.25 Memoria 0.25 mcg 3-28 microgram l oral 13:49: = 1 cap, Denis capsule 00 PO, Daily, # 90 cap, 3 Refill(s), Pharmacy: [facility] [place] [address] calcitriol Yes 0.25 Memoria 0.25 mcg 3-28 microgram l oral 13:49: = 1 cap, Denis capsule 00 PO, Daily, # 90 cap, 3 Refill(s), Pharmacy: [facility] [place] [address] calcitriol Yes 0.25 Memoria 0.25 mcg 3-28 microgram l oral 13:49: = 1 cap, [place] capsule 00 PO, Daily, # 90 cap, 3 Refill(s), Pharmacy: [facility] [place] [address] calcitriol Yes 0.25 Memoria 0.25 mcg 3-28 microgram l oral 13:49: = 1 cap, [place] capsule 00 PO, Daily, # 90 cap, 3 Refill(s), Pharmacy: [facility] [place] [address] calcitriol Yes 0.25 Memoria 0.25 mcg 3-28 microgram l oral 13:49: = 1 cap, [place] capsule 00 PO, Daily, # 90 cap, 3 Refill(s), Pharmacy: [facility] [place] [address] calcitriol Yes 0.25 Memoria 0.25 mcg 3-28 microgram l oral 13:49: = 1 cap, Denis capsule 00 PO, Daily, # 90 cap, 3 Refill(s), Pharmacy: [facility] [place] [address] Mupirocin Yes 1 appl, Memor ia 0.02 MG/MG 3-21 TOP, BID, l Topical 15:37: 30 grams Vicente n Ointment 21 3each, # 3 ea, 1 Refill(s), Pharmacy: [facility] [place] [address] Mupirocin Yes 1 appl, Memor ia 0.02 MG/MG 3-21 TOP, BID, l Topical 15:37: 30 grams Vicente n Ointment 21 3each, # 3 ea, 1 Refill(s), Pharmacy: [facility] [place] [address] Mupirocin Yes 1 appl, Memor ia 0.02 MG/MG 3-21 TOP, BID, l Topical 15:37: 30 grams Vicente n Ointment 21 3each, # 3 ea, 1 Refill(s), Pharmacy: [facility] [place] [address] Mupirocin Yes 1 appl, Memor ia 0.02 MG/MG 3-21 TOP, BID, l Topical 15:37: 30 grams Vicente n Ointment 21 3each, # 3 ea, 1 Refill(s), Pharmacy: [facility] [place] [address] Mupirocin Yes 1 appl, Memor ia 0.02 MG/MG 3-21 TOP, BID, l Topical 15:37: 30 grams Vicente n Ointment 21 3each, # 3 ea, 1 Refill(s), Pharmacy: [place] [address] Mupirocin Yes 1 appl, Memor ia 0.02 MG/MG 3-21 TOP, BID, l Topical 15:37: 30 grams Vicnete n Ointment 21 3each, # 3 ea, 1 Refill(s), Pharmacy: [place] [address] Mupirocin Yes 1 appl, Memor ia 0.02 MG/MG 3-21 TOP, BID, l Topical 15:37: 30 grams Vicente n Ointment 21 3each, # 3 ea, 1 Refill(s), Pharmacy: [address] Yes See Memori a n 40 mg 3-21 Instructio l oral tablet 15:36: ns, TAKE 1 Denis 22 TABLET BY MOUTH EVERY NIGHT AT BEDTIME, # 30 tab, 5 Refill(s), Pharmacy: [address] Yes See Memori a n 40 mg 3-21 Instructio l oral tablet 15:36: ns, TAKE 1 [place] 22 TABLET BY MOUTH EVERY NIGHT AT BEDTIME, # 30 tab, 5 Refill(s), Pharmacy: [address] Yes See Memori a n 40 mg 3-21 Instructio l oral tablet 15:36: ns, TAKE 1 [place] 22 TABLET BY MOUTH EVERY NIGHT AT BEDTIME, # 30 tab, 5 Refill(s), Pharmacy: [address] Yes See Memori a n 40 mg 3-21 Instructio l oral tablet 15:36: ns, TAKE 1 [place] 22 TABLET BY MOUTH EVERY NIGHT AT BEDTIME, # 30 tab, 5 Refill(s), Pharmacy: [address] Yes See Memori a n 40 mg 3-21 Instructio l oral tablet 15:36: ns, TAKE 1 [place] 22 TABLET BY MOUTH EVERY NIGHT AT BEDTIME, # 30 tab, 5 Refill(s), [address] Yes See Memori a n 40 mg 3-21 Instructio l oral tablet 15:36: ns, TAKE 1 [place] 22 TABLET BY MOUTH EVERY NIGHT AT BEDTIME, # 30 tab, 5 Refill(s), Pharmacy: [place] [address] atorvastati Yes See Memori a n 40 mg 3-21 Instructio l oral tablet 15:36: ns, TAKE 1 [place] 22 TABLET BY MOUTH EVERY NIGHT AT BEDTIME, # 30 tab, 5 Refill(s), Pharmacy: [place] [address] amLODIPine Yes See Memoria 5 mg oral 3-21 Instructio l tablet 15:36: ns, TAKE 1 [place] 18 TABLET BY MOUTH EVERY DAY, # 30 tab, 5 Refill(s), Pharmacy: [place] [address] amLODIPine Yes See Memoria 5 mg oral 3-21 Instructio l tablet 15:36: ns, TAKE 1 [place] 18 TABLET BY MOUTH EVERY DAY, # 30 tab, 5 Refill(s), Pharmacy: [place] [address] amLODIPine Yes See Memoria 5 mg oral 3-21 Instructio l tablet 15:36: ns, TAKE 1 [place] 18 TABLET BY MOUTH EVERY DAY, # 30 tab, 5 Refill(s), Pharmacy: [place] [address] amLODIPine Yes See Memoria 5 mg oral 3-21 Instructio l tablet 15:36: ns, TAKE 1 [place] 18 TABLET BY MOUTH EVERY DAY, # 30 tab, 5 Refill(s), Pharmacy: [place] [address] amLODIPine Yes See Memoria 5 mg oral 3-21 Instructio l tablet 15:36: ns, TAKE 1 [place] 18 TABLET BY MOUTH EVERY DAY, # 30 tab, 5 Refill(s), Pharmacy: [place] [address] amLODIPine Yes See Memoria 5 mg oral 3-21 Instructio l tablet 15:36: ns, TAKE 1 [place] 18 TABLET BY MOUTH EVERY DAY, # 30 tab, 5 Refill(s), Pharmacy: [place] [address] amLODIPine Yes See Memoria 5 mg oral 3-21 Instructio l tablet 15:36: ns, TAKE 1 [place] 18 TABLET BY MOUTH EVERY DAY, # 30 tab, 5 Refill(s), Pharmacy: [facility] [id number] aspirin 81 2017- Yes 81 mg = [...] 00 90 tab, 3 Refill(s) aspirin 81 2017- Yes 81 mg = [...] 00 90 tab, 3 Refill(s) aspirin 81 2017- Yes 81 mg = 1 Me moria mg tablet, 1-24 tab, PO, l enteric 16:34: Daily, # [place] coated 00 90 tab, 3 Refill(s) Xopenex 0 No Kyle K 0.63 mg = Mem oria 0.63 mg/3 3-11 Silvestre 3 mL, l mL 01:00: Soln, NEB, [place] inhalation 00 Once, solution first dose 12/30/15 19:00: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, stop date 12/30/15 19:00: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 Xopenex 2015-0 No Kyle K 0.63 mg = Mem oria 0.63 mg/3 3-11 Silvestre 3 mL, l mL 01:00: Soln, NEB, [place] inhalation 00 Once, solution first dose 12/30/15 19:00: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, stop date 12/30/15 19:00: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 Xopenex 2015-0 No Kyle K 0.63 mg = Mem oria 0.63 mg/3 3-11 Silvestre 3 mL, l mL 01:00: Soln, NEB, [place] inhalation 00 Once, solution first dose 12/30/15 19:00: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, stop date 12/30/15 19:00: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 Xopenex 2015-0 No Kyle K 0.63 mg = Mem oria 0.63 mg/3 3-11 Silvestre 3 mL, l mL 01:00: Soln, NEB, [place] inhalation 00 Once, solution first dose 12/30/15 19:00: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, stop date 12/30/15 19:00: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 Xopenex 2015-0 No Kyle K 0.63 mg = Mem oria 0.63 mg/3 3-11 Silvestre 3 mL, l mL 01:00: Soln, NEB, [place] inhalation 00 Once, solution first dose 12/30/15 19:00: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, stop date 12/30/15 19:00: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 Xopenex 2015-0 No Kyle K 0.63 mg = Mem oria 0.63 mg/3 3-11 Silvestre 3 mL, l mL 01:00: Soln, NEB, [place] inhalation 00 Once, solution first dose 12/30/15 19:00: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, stop date 12/30/15 19:00: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 Xopenex 2015-0 No Kyle K 0.63 mg = Mem oria 0.63 mg/3 3-11 Silvestre 3 mL, l mL 01:00: Soln, NEB, [place] inhalation 00 Once, solution first dose 12/30/15 19:00: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, stop date 12/30/15 19:00: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 Misc 2015-0 No Perico 300 mL, Memoria Medication 3-11 Wheat Soln-IV, l 00:03: IV, Once, Denis 00 first dose 12/30/15 18:03: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, stop date 12/30/15 18:03: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 Misc 2015-0 No [place] 300 mL, Memoria Medication 3-11 Wheat Soln-IV, l 00:03: IV, Once, [place] 00 first dose 12/30/15 18:03: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, stop date 12/30/15 18:03: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 [facility] [place] mL, Memoria Medication 3-11 Wheat Soln-IV, l 00:03: IV, Once, [place] 00 first dose 12/30/15 18:03: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, stop date 12/30/15 18:03: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 [facility] [place] mL, Memoria Medication 3-11 Wheat Soln-IV, l 00:03: IV, Once, [place] 00 first dose 12/30/15 18:03: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, stop date 12/30/15 18:03: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 [facility] [place] mL, Memoria Medication 3-11 [place] Soln-IV, l 00:03: IV, Once, [place] 00 first dose 12/30/15 18:03: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, stop date 12/30/15 18:03: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 [facility] [place] mL, Memoria Medication 3-11 Wheat Soln-IV, l 00:03: IV, Once, Denis 00 first dose 12/30/15 18:03: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, stop date 12/30/15 18:03: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 [facility] [place] mL, Memoria Medication 3-11 Wheat Soln-IV, l 00:03: IV, Once, Denis 00 first dose 12/30/15 18:03: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, stop date 12/30/15 18:03: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 promethazin No Kyle K 12.5 mg = Memoria e 3-11 Sil[place] 0.5 mL, l 00:02: Injection, Denis 00 IM, Once PRN for severe nausea, first dose 12/30/15 18:02: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 albuterol No Kyle K 2.5 mg = 3 Memoria 2.5 mg/3 mL 3-11 Silvestre mL, Soln, l (0.083%) 00:02: NEB, Once Herm connie inhalation 00 PRN for solution wheezing, first dose 12/30/15 18:02: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 Demerol HCl No Kyle K 12.5 mg = Memoria 3-11 [place] 0.25 mL, l 00:02: Injection, Denis 00 IV Push, Once PRN for shivers, first dose 12/30/15 18:02: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 ondansetron No Kyle K 4 mg = 2 Memoria 3-11 [place] mL, l 00:02: Injection, Denis 00 IV Push, q15min PRN for nausea/vom iting, order duration: 2 doses, first dose 12/30/15 18:02: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, stop date Limited # of times Dilaudid No Kyle K 0.5 mg = Mem oria 3-11 Sil[place] 0.25 mL, l 00:02: Injection, [place] 00 IV Push, q10min PRN for pain severe (7-10), first dose 12/30/15 18:02: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 diphenhydrA No Kyle K 25 mg = M emoria MINE 3-11 Silvest[place] 0.5 mL, l 00:02: Injection, [place] 00 IV Push, Once PRN for itching, first dose 12/30/15 18:02: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 LR 1,000 mL No Kyle K 1,000 mL, Memoria 3-11 Silvestre IV, 75 l 00:02: mL/hr, Denis 00 start date 12/30/15 18:02: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 Saline Lock No Kyle K 10 mL, Me moria Flush 3-11 Silvestre Soln, IV l 00:02: Push, As Denis 00 Indicated PRN for flush, first dose 12/30/15 18:02: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 Bupivacaine No Kyle K 300 mL, M emoria 0.25% 300 3-11 Silvestre Nerve l mL pump 300 00:02: Block, 5 He rmann mL 00 mL/hr, start date 12/30/15 18:02: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 promethazin No Kyle K 12.5 mg = Memoria e 3-11 Silvestre 0.5 mL, l 00:02: Injection, [place] 00 IM, Once PRN for severe nausea, first dose 12/30/15 18:02: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 albuterol No Kyle K 2.5 mg = 3 Memoria 2.5 mg/3 mL 3-11 Silvestre mL, Soln, l (0.083%) 00:02: NEB, Once Herm connie inhalation 00 PRN for solution wheezing, first dose 12/30/15 18:02: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 Demerol HCl No Kyle K 12.5 mg = Memoria 3-11 Silvestre 0.25 mL, l 00:02: Injection, [place] 00 IV Push, Once PRN for shivers, first dose 12/30/15 18:02: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 ondansetron No Kyle K 4 mg = 2 Memoria 3-11 Silvest[place] mL, l 00:02: Injection, Denis 00 IV Push, q15min PRN for nausea/vom iting, order duration: 2 doses, first dose 12/30/15 18:02: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, stop date Limited # of times Dilaudid No Kyle K 0.5 mg = Mem oria 3-11 Silvestre 0.25 mL, l 00:02: Injection, Denis 00 IV Push, q10min PRN for pain severe (7-10), first dose 12/30/15 18:02: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 diphenhydrA No Kyle K 25 mg = M emoria MINE 3-11 Silvestre 0.5 mL, l 00:02: Injection, Denis 00 IV Push, Once PRN for itching, first dose 12/30/15 18:02: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 LR 1,000 mL No Kyle K 1,000 mL, Memoria 3-11 Silvestre IV, 75 l 00:02: mL/hr, Denis 00 start date 12/30/15 18:02: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 Saline Lock No Kyle K 10 mL, Me moria Flush 3-11 Silvestre Soln, IV l 00:02: Push, As [place] 00 Indicated PRN for flush, first dose 12/30/15 18:02: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 Bupivacaine No Kyle K 300 mL, M emoria 0.25% 300 3-11 Silvestre Nerve l mL pump 300 00:02: Block, 5 He rmann mL 00 mL/hr, start date 12/30/15 18:02: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 promethazin No Kyle K 12.5 mg = Memoria e 3-11 Silvestre 0.5 mL, l 00:02: Injection, [place] 00 IM, Once PRN for severe nausea, first dose 12/30/15 18:02: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 albuterol No Kyle K 2.5 mg = 3 Memoria 2.5 mg/3 mL 3-11 Silvestre mL, Soln, l (0.083%) 00:02: NEB, Once Herm connie inhalation 00 PRN for solution wheezing, first dose 12/30/15 18:02: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 Demerol HCl No Kyle K 12.5 mg = Memoria 3-11 Silvestre 0.25 mL, l 00:02: Injection, Denis 00 IV Push, Once PRN for shivers, first dose 12/30/15 18:02: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 ondansetron No Kyle K 4 mg = 2 Memoria 3-11 Silvestre mL, l 00:02: Injection, [place] 00 IV Push, q15min PRN for nausea/vom iting, order duration: 2 doses, first dose 12/30/15 18:02: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, stop date Limited # of times Dilaudid No Kyle K 0.5 mg = Mem oria 3-11 Silvestre 0.25 mL, l 00:02: Injection, Denis 00 IV Push, q10min PRN for pain severe (7-10), first dose 12/30/15 18:02: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 diphenhydrA No Kyle K 25 mg = M emoria MINE 3-11 Silvestre 0.5 mL, l 00:02: Injection, [place] 00 IV Push, Once PRN for itching, first dose 12/30/15 18:02: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 LR 1,000 mL No Kyle K 1,000 mL, Memoria 3-11 Silvestre IV, 75 l 00:02: mL/hr, Denis 00 start date 12/30/15 18:02: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 Saline Lock No Kyle K 10 mL, Me moria Flush 3-11 Silvestre Soln, IV l 00:02: Push, As [place] 00 Indicated PRN for flush, first dose 12/30/15 18:02: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 Bupivacaine No Kyle K 300 mL, M emoria 0.25% 300 3-11 Silvestre Nerve l mL pump 300 00:02: Block, 5 He rmann mL 00 mL/hr, start date 12/30/15 18:02: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 promethazin No Kyle K 12.5 mg = Memoria e 3-11 Silvestre 0.5 mL, l 00:02: Injection, [place] 00 IM, Once PRN for severe nausea, first dose 12/30/15 18:02: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 albuterol No Kyle K 2.5 mg = 3 Memoria 2.5 mg/3 mL 3-11 Silvestre mL, Soln, l (0.083%) 00:02: NEB, Once Herm connie inhalation 00 PRN for solution wheezing, first dose 12/30/15 18:02: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 Demerol HCl No Kyle K 12.5 mg = Memoria 3-11 Silvestre 0.25 mL, l 00:02: Injection, [place] 00 IV Push, Once PRN for shivers, first dose 12/30/15 18:02: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 ondansetron No Kyle K 4 mg = 2 Memoria 3-11 Silvestre mL, l 00:02: Injection, [place] 00 IV Push, q15min PRN for nausea/vom iting, order duration: 2 doses, first dose 12/30/15 18:02: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, stop date Limited # of times Dilaudid No Kyle K 0.5 mg = Mem oria 3-11 Silvestre 0.25 mL, l 00:02: Injection, Denis 00 IV Push, q10min PRN for pain severe (7-10), first dose 12/30/15 18:02: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 diphenhydrA No Kyle K 25 mg = M emoria MINE 3-11 Silvestre 0.5 mL, l 00:02: Injection, [place] 00 IV Push, Once PRN for itching, first dose 12/30/15 18:02: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 LR 1,000 mL No Kyle K 1,000 mL, Memoria 3-11 Silvestre IV, 75 l 00:02: mL/hr, [place] 00 start date 12/30/15 18:02: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 Saline Lock No Kyle K 10 mL, Me moria Flush 3-11 Silvestre Soln, IV l 00:02: Push, As [place] 00 Indicated PRN for flush, first dose 12/30/15 18:02: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 Bupivacaine No Kyle K 300 mL, M emoria 0.25% 300 3-11 Silvestre Nerve l mL pump 300 00:02: Block, 5 He rmann mL 00 mL/hr, start date 12/30/15 18:02: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 promethazin No Kyle K 12.5 mg = Memoria e 3-11 Silvestre 0.5 mL, l 00:02: Injection, [place] 00 IM, Once PRN for severe nausea, first dose 12/30/15 18:02: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 albuterol No Kyle K 2.5 mg = 3 Memoria 2.5 mg/3 mL 3-11 Silvestre mL, Soln, l (0.083%) 00:02: NEB, Once Herm connie inhalation 00 PRN for solution wheezing, first dose 12/30/15 18:02: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 Demerol HCl No Kyle K 12.5 mg = Memoria 3-11 Silvestre 0.25 mL, l 00:02: Injection, Denis 00 IV Push, Once PRN for shivers, first dose 12/30/15 18:02: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 ondansetron No Kyle K 4 mg = 2 Memoria 3-11 Sil[place]re mL, l 00:02: Injection, Denis 00 IV Push, q15min PRN for nausea/vom iting, order duration: 2 doses, first dose 12/30/15 18:02: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, stop date Limited # of times Dilaudid No Kyle K 0.5 mg = Mem oria 3-11 Silvestre 0.25 mL, l 00:02: Injection, Denis 00 IV Push, q10min PRN for pain severe (7-10), first dose 12/30/15 18:02: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 diphenhydrA No Kyle K 25 mg = M emoria MINE 3-11 Silvestre 0.5 mL, l 00:02: Injection, [place] 00 IV Push, Once PRN for itching, first dose 12/30/15 18:02: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 LR 1,000 mL No Kyle K 1,000 mL, Memoria 3-11 Silvestre IV, 75 l 00:02: mL/hr, Denis 00 start date 12/30/15 18:02: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 Saline Lock No Kyle K 10 mL, Me moria Flush 3-11 Silvestre Soln, IV l 00:02: Push, As [place] 00 Indicated PRN for flush, first dose 12/30/15 18:02: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 Bupivacaine No Kyle K 300 mL, M emoria 0.25% 300 3-11 Silvestre Nerve l mL pump 300 00:02: Block, 5 He rmann mL 00 mL/hr, start date 12/30/15 18:02: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 promethazin No Kyle K 12.5 mg = Memoria e 3-11 Silvestre 0.5 mL, l 00:02: Injection, Denis 00 IM, Once PRN for severe nausea, first dose 12/30/15 18:02: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 albuterol No Kyle K 2.5 mg = 3 Memoria 2.5 mg/3 mL 3-11 Silvestre mL, Soln, l (0.083%) 00:02: NEB, Once Herm connie inhalation 00 PRN for solution wheezing, first dose 12/30/15 18:02: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 Demerol HCl No Kyle K 12.5 mg = Memoria 3-11 Silvestre 0.25 mL, l 00:02: Injection, [place] 00 IV Push, Once PRN for shivers, first dose 12/30/15 18:02: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 ondansetron No Kyle K 4 mg = 2 Memoria 3-11 Silvestre mL, l 00:02: Injection, [place] 00 IV Push, q15min PRN for nausea/vom iting, order duration: 2 doses, first dose 12/30/15 18:02: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, stop date Limited # of times Dilaudid No Kyle K 0.5 mg = Mem oria 3-11 Silvestre 0.25 mL, l 00:02: Injection, [place] 00 IV Push, q10min PRN for pain severe (7-10), first dose 12/30/15 18:02: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 diphenhydrA No Kyle K 25 mg = M emoria MINE 3-11 Silvestre 0.5 mL, l 00:02: Injection, Denis 00 IV Push, Once PRN for itching, first dose 12/30/15 18:02: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 LR 1,000 mL No Kyle K 1,000 mL, Memoria 3-11 Silvestre IV, 75 l 00:02: mL/hr, [place] 00 start date 12/30/15 18:02: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 Saline Lock No Kyle K 10 mL, Me moria Flush 3-11 Silvestre Soln, IV l 00:02: Push, As Denis 00 Indicated PRN for flush, first dose 12/30/15 18:02: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 Bupivacaine No Kyle K 300 mL, M emoria 0.25% 300 3-11 Silvestre Nerve l mL pump 300 00:02: Block, 5 He rmann mL 00 mL/hr, start date 12/30/15 18:02: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 promethazin No Kyle K 12.5 mg = Memoria e 3-11 Silvestre 0.5 mL, l 00:02: Injection, [place] 00 IM, Once PRN for severe nausea, first dose 12/30/15 18:02: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 albuterol No Kyle K 2.5 mg = 3 Memoria 2.5 mg/3 mL 3-11 Silvestre mL, Soln, l (0.083%) 00:02: NEB, Once Herm connie inhalation 00 PRN for solution wheezing, first dose 12/30/15 18:02: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 Demerol HCl No Kyle K 12.5 mg = Memoria 3-11 Silvestre 0.25 mL, l 00:02: Injection, Denis 00 IV Push, Once PRN for shivers, first dose 12/30/15 18:02: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 ondansetron No Kyle K 4 mg = 2 Memoria 3-11 Silvestre mL, l 00:02: Injection, Denis 00 IV Push, q15min PRN for nausea/vom iting, order duration: 2 doses, first dose 12/30/15 18:02: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, stop date Limited # of times Dilaudid No Kyle K 0.5 mg = Mem oria 3-11 Silvestre 0.25 mL, l 00:02: Injection, [place] 00 IV Push, q10min PRN for pain severe (7-10), first dose 12/30/15 18:02: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 diphenhydrA No Kyle K 25 mg = M emoria MINE 3-11 Silvestre 0.5 mL, l 00:02: Injection, Denis IV Push, Once PRN for itching, first dose 12/30/15 18:02: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 LR 1,000 mL No Kyle K 1,000 mL, Memoria 3-11 Silvestre IV, 75 l 00:02: mL/hr, [place] 00 start date 12/30/15 18:02:00 SENIOR BI DEVELOPER Saline Lock No Kyle K 10 mL, Me moria Flush 3-11 Silvestre Soln, IV l 00:02: Push, As Indicated PRN for flush, first dose 12/30/15 18:02:00 SENIOR BI DEVELOPER Bupivacaine No Kyle K 300 mL, M emoria 0.25% 300 3-11 Silvestre Nerve l mL pump 300 00:02: Block, 5 He rmann mL 00 mL/hr, start date 12/30/15 18:02:00 SENIOR BI DEVELOPER [facility] [place] mL, Memori a Medication 3-10 Wheat Soln-IV, l 23:42: IV, Once, first dose 12/30/15 17:42:00 SENIOR BI DEVELOPER, stop date 12/30/15 17:42:00 SENIOR BI DEVELOPER [facility] [place] 1,000 mL, Memori a Medication 3-10 Wheat Soln-IV, l 23:42: IV, Once, first dose 12/30/15 17:42:00 SENIOR BI DEVELOPER, stop date 12/30/15 17:42:00 SENIOR BI DEVELOPER [facility] [place] 1,000 mL, Memori a Medication 3-10 Wheat Soln-IV, l 23:42: IV, Once, first dose 12/30/15 17:42:00 SENIOR BI DEVELOPER, stop date 12/30/15 17:42:00 SENIOR BI DEVELOPER [facility] [place] 1,000 mL, Memori a Medication 3-10 Wheat Soln-IV, l 23:42: IV, Once, first dose 12/30/15 17:42:00 SENIOR BI DEVELOPER, stop date 03/10/16 17:42:00 SENIOR BI DEVELOPER [facility] [place] [facility] [place] 1,000 mL, Memori a Medication 3-10 Wheat Soln-IV, l 23:42: IV, Once, [place] 00 first dose 12/30/15 17:42:00 SENIOR BI DEVELOPER, stop date 12/30/15 17:42:00 SENIOR BI DEVELOPER [facility] [place] [facility] [place] 1,000 mL, Memori a Medication 3-10 Wheat Soln-IV, l 23:42: IV, Once, [place] 00 first dose 12/30/15 17:42:00 SENIOR BI DEVELOPER, stop date 12/30/15 17:42:00 SENIOR BI DEVELOPER [facility] [place] 1,000 mL, Memori a Medication 3-10 Wheat Soln-IV, l 23:42: IV, Once, [place] 00 first dose 12/30/15 17:42:00 SENIOR BI DEVELOPER, stop date 12/30/15 17:42:00 SENIOR BI DEVELOPER fentaNYL No Perico 25 mcg = Mem oria 3-10 Wheat 0.5 mL, l 23:20: Injection, Denis 00 IV, Once, first dose 12/30/15 17:20:00 SENIOR BI DEVELOPER, stop date 12/30/15 17:20:00 SENIOR BI DEVELOPER fentaNYL No Perico 25 mcg = Mem oria 3-10 Wheat 0.5 mL, l 23:20: Injection, [place] 00 IV, Once, first dose 12/30/15 17:20:00 SENIOR BI DEVELOPER, stop date 12/30/15 17:20:00 SENIOR BI DEVELOPER fentaNYL No Perico 25 mcg = Mem oria 3-10 Wheat 0.5 mL, l 23:20: Injection, Denis 00 IV, Once, first dose 12/30/15 17:20:00 SENIOR BI DEVELOPER, stop date 12/30/15 17:20:00 SENIOR BI DEVELOPER fentaNYL No Perico 25 mcg = Mem oria 3-10 Wheat 0.5 mL, l 23:20: Injection, Denis 00 IV, Once, first dose 12/30/15 17:20:00 SENIOR BI DEVELOPER, stop date 12/30/15 17:20:00 SENIOR BI DEVELOPER fentaNYL No Perico 25 mcg = Mem oria 3-10 Wheat 0.5 mL, l 23:20: Injection, [place] 00 IV, Once, first dose 12/30/15 17:20:00 SENIOR BI DEVELOPER, stop date 12/30/15 17:20:00 SENIOR BI DEVELOPER fentaNYL 2016-0 No Perico 25 mcg = Mem oria 3-10 Wheat 0.5 mL, l 23:20: Injection, Denis 00 IV, Once, first dose 12/30/15 17:20:00 SENIOR BI DEVELOPER, stop date 12/30/15 17:20:00 SENIOR BI DEVELOPER fentaNYL 2016-0 No Perico 25 mcg = Mem oria 3-10 Wheat 0.5 mL, l 23:20: Injection, Denis 00 IV, Once, first dose 12/30/15 17:20:00 SENIOR BI DEVELOPER, stop date 12/30/15 17:20:00 SENIOR BI DEVELOPER ondansetron 2015-0 No Perico 4 mg = 2 Memoria 3-10 Wheat mL, l 23:03: Injection, Denis 00 IV, Once, first dose 12/30/15 17:03:00 SENIOR BI DEVELOPER, stop date 12/30/15 17:03:00 SENIOR BI DEVELOPER ondansetron 2015-0 No Perico 4 mg = 2 Memoria 3-10 Wheat mL, l 23:03: Injection, [place] 00 IV, Once, first dose 12/30/15 17:03:00 SENIOR BI DEVELOPER, stop date 12/30/15 17:03:00 SENIOR BI DEVELOPER ondansetron 2015-0 No Perico 4 mg = 2 Memoria 3-10 Wheat mL, l 23:03: Injection, [place] 00 IV, Once, first dose 12/30/15 17:03:00 SENIOR BI DEVELOPER, stop date 12/30/15 17:03:00 SENIOR BI DEVELOPER ondansetron 2015-0 No Perico 4 mg = 2 Memoria 3-10 Wheat mL, l 23:03: Injection, [place] 00 IV, Once, first dose 12/30/15 17:03:00 SENIOR BI DEVELOPER, stop date 12/30/15 17:03:00 SENIOR BI DEVELOPER ondansetron 2015-0 No Perico 4 mg = 2 Memoria 3-10 Wheat mL, l 23:03: Injection, [place] 00 IV, Once, first dose 12/30/15 17:03:00 SENIOR BI DEVELOPER, stop date 12/30/15 17:03:00 SENIOR BI DEVELOPER ondansetron 2015-0 No Perioc 4 mg = 2 Memoria 3-10 Wheat mL, l 23:03: Injection, [place] 00 IV, Once, first dose 12/30/15 17:03:00 SENIOR BI DEVELOPER, stop date 12/30/15 17:03:00 SENIOR BI DEVELOPER ondansetron 2015-0 No Perico 4 mg = 2 Memoria 3-10 Wheat mL, l 23:03: Injection, Denis 00 IV, Once, first dose 12/30/15 17:03:00 SENIOR BI DEVELOPER, stop date 12/30/15 17:03:00 SENIOR BI DEVELOPER fentaNYL 2015-0 No Perico 25 mcg = Mem oria 3-10 Wheat 0.5 mL, l 23:00: Injection, [place] 00 IV, Once, first dose 12/30/15 17:00:00 SENIOR BI DEVELOPER, stop date 12/30/15 17:00:00 SENIOR BI DEVELOPER fentaNYL 2015-0 No Perico 25 mcg = Mem oria 3-10 Wheat 0.5 mL, l 23:00: Injection, [place] 00 IV, Once, first dose 12/30/15 17:00:00 SENIOR BI DEVELOPER, stop date 12/30/15 17:00:00 SENIOR BI DEVELOPER fentaNYL 2015-0 No Perico 25 mcg = Mem oria 3-10 Wheat 0.5 mL, l 23:00: Injection, Denis 00 IV, Once, first dose 12/30/15 17:00:00 SENIOR BI DEVELOPER, stop date 12/30/15 17:00:00 SENIOR BI DEVELOPER fentaNYL 2015-0 No Perico 25 mcg = Mem oria 3-10 Wheat 0.5 mL, l 23:00: Injection, [place] 00 IV, Once, first dose 12/30/15 17:00:00 SENIOR BI DEVELOPER, stop date 12/30/15 17:00:00 SENIOR BI DEVELOPER fentaNYL 2015-0 No Perico 25 mcg = Mem oria 3-10 Wheat 0.5 mL, l 23:00: Injection, Denis 00 IV, Once, first dose 12/30/15 17:00:00 SENIOR BI DEVELOPER, stop date 12/30/15 17:00:00 SENIOR BI DEVELOPER fentaNYL 2015-0 No Perico 25 mcg = Mem oria 3-10 Wheat 0.5 mL, l 23:00: Injection, [place] 00 IV, Once, first dose 12/30/15 17:00:00 SENIOR BI DEVELOPER, stop date 12/30/15 17:00:00 SENIOR BI DEVELOPER fentaNYL 2015-0 No Perico 25 mcg = Mem oria 3-10 Wheat 0.5 mL, l 23:00: Injection, Denis 00 IV, Once, first dose 12/30/15 17:00:00 SENIOR BI DEVELOPER, stop date 12/30/15 17:00:00 SENIOR BI DEVELOPER fentaNYL 2015- No Perico 25 mcg = Mem oria 3-10 Wheat 0.5 mL, l 22:48: Injection, Denis 00 IV, Once, first dose 12/30/15 16:48:00 SENIOR BI DEVELOPER, stop date 12/30/15 16:48:00 SENIOR BI DEVELOPER fentaNYL 2015- No Perico 25 mcg = Mem oria 3-10 Wheat 0.5 mL, l 22:48: Injection, [place] 00 IV, Once, first dose 12/30/15 16:48:00 SENIOR BI DEVELOPER, stop date 12/30/15 16:48:00 SENIOR BI DEVELOPER fentaNYL 2015- No Perico 25 mcg = Mem oria 3-10 Wheat 0.5 mL, l 22:48: Injection, Denis 00 IV, Once, first dose 12/30/15 16:48:00 SENIOR BI DEVELOPER, stop date 12/30/15 16:48:00 SENIOR BI DEVELOPER fentaNYL 2015- No Perico 25 mcg = Mem oria 3-10 Wheat 0.5 mL, l 22:48: Injection, Denis 00 IV, Once, first dose 12/30/15 16:48:00 SENIOR BI DEVELOPER, stop date 12/30/15 16:48:00 SENIOR BI DEVELOPER fentaNYL 2015- No Perico 25 mcg = Mem oria 3-10 Wheat 0.5 mL, l 22:48: Injection, [place] 00 IV, Once, first dose 12/30/15 16:48:00 SENIOR BI DEVELOPER, stop date 12/30/15 16:48:00 SENIOR BI DEVELOPER fentaNYL 2015- No Perico 25 mcg = Mem oria 3-10 Wheat 0.5 mL, l 22:48: Injection, [place] 00 IV, Once, first dose 12/30/15 16:48:00 SENIOR BI DEVELOPER, stop date 12/30/15 16:48:00 SENIOR BI DEVELOPER fentaNYL 2015- No Perico 25 mcg = Mem oria 3-10 Wheat 0.5 mL, l 22:48: Injection, [place] 00 IV, Once, first dose 12/30/15 16:48:00 SENIOR BI DEVELOPER, stop date 12/30/15 16:48:00 SENIOR BI DEVELOPER fentaNYL 2015-0 No Perico 25 mcg = Mem oria 3-10 Wheat 0.5 mL, l 22:37: Injection, [place] 00 IV, Once, first dose 12/30/15 16:37:00 SENIOR BI DEVELOPER, stop date 12/30/15 16:37:00 SENIOR BI DEVELOPER fentaNYL No Perico 25 mcg = Mem oria 3-10 Wheat 0.5 mL, l 22:37: Injection, Denis 00 IV, Once, first dose 12/30/15 16:37:00 SENIOR BI DEVELOPER, stop date 12/30/15 16:37:00 SENIOR BI DEVELOPER fentaNYL No Perico 25 mcg = Mem oria 3-10 Wheat 0.5 mL, l 22:37: Injection, Denis 00 IV, Once, first dose 12/30/15 16:37:00 SENIOR BI DEVELOPER, stop date 12/30/15 16:37:00 SENIOR BI DEVELOPER fentaNYL No Perico 25 mcg = Mem oria 3-10 Wheat 0.5 mL, l 22:37: Injection, [place] 00 IV, Once, first dose 12/30/15 16:37:00 SENIOR BI DEVELOPER, stop date 12/30/15 16:37:00 SENIOR BI DEVELOPER fentaNYL No Perico 25 mcg = Mem oria 3-10 Wheat 0.5 mL, l 22:37: Injection, Denis 00 IV, Once, first dose 12/30/15 16:37:00 SENIOR BI DEVELOPER, stop date 12/30/15 16:37:00 SENIOR BI DEVELOPER fentaNYL No Perico 25 mcg = Mem oria 3-10 Wheat 0.5 mL, l 22:37: Injection, Denis 00 IV, Once, first dose 12/30/15 16:37:00 SENIOR BI DEVELOPER, stop date 12/30/15 16:37:00 SENIOR BI DEVELOPER fentaNYL No Perico 25 mcg = Mem oria 3-10 Wheat 0.5 mL, l 22:37: Injection, [place] 00 IV, Once, first dose 12/30/15 16:37:00 SENIOR BI DEVELOPER, stop date 12/30/15 16:37:00 SENIOR BI DEVELOPER dexamethaso No [place] 8 mg = 2 Memoria ne 3-10 Wheat mL, l 22:23: Injection, Denis 00 IV, Once, first dose 12/30/15 16: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, stop date 12/30/15 16: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 dexamethaso 2016-0 No Perico 8 mg = 2 Memoria ne 3-10 Wheat mL, l 22:23: Injection, [place] 00 IV, Once, first dose 12/30/15 16: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, stop date 12/30/15 16: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 dexamethaso 2016-0 No Perico 8 mg = 2 Memoria ne 3-10 Wheat mL, l 22:23: Injection, Denis 00 IV, Once, first dose 12/30/15 16: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, stop date 12/30/15 16: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 dexamethaso 2016-0 No Perico 8 mg = 2 Memoria ne 3-10 Wheat mL, l 22:23: Injection, [place] 00 IV, Once, first dose 12/30/15 16: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, stop date 12/30/15 16: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 dexamethaso 2016-0 No Perico 8 mg = 2 Memoria ne 3-10 Wheat mL, l 22:23: Injection, Denis 00 IV, Once, first dose 12/30/15 16: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, stop date 12/30/15 16: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 dexamethaso 2016-0 No Perico 8 mg = 2 Memoria ne 3-10 Wheat mL, l 22:23: Injection, [place] 00 IV, Once, first dose 12/30/15 16: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, stop date 12/30/15 16: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 dexamethaso 2016-0 No Perico 8 mg = 2 Memoria ne 3-10 Wheat mL, l 22:23: Injection, Denis 00 IV, Once, first dose 12/30/15 16: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, stop date 12/30/15 16: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 Misc 2016-0 No Perico 1,000 mL, Memori a Medication 3-10 Wheat Soln-IV, l 22:21: IV, Once, Denis 00 first dose 12/30/15 16:21:00 SENIOR BI DEVELOPER, stop date 12/30/15 16:21:00 SENIOR BI DEVELOPER Misc 2016-0 No Perico 1,000 mL, Memori a Medication 3-10 Wheat Soln-IV, l 22:21: IV, Once, Denis 00 first dose 12/30/15 16:21:00 SENIOR BI DEVELOPER, stop date 12/30/15 16:21:00 SENIOR BI DEVELOPER [facility] [place] 1,000 mL, Memori a Medication 3-10 Wheat Soln-IV, l 22:21: IV, Once, Denis 00 first dose 12/30/15 16:21:00 SENIOR BI DEVELOPER, stop date 12/30/15 16:21:00 SENIOR BI DEVELOPER Mis 2015-0 No Perico 1,000 mL, Memori a Medication 3-10 Wheat Soln-IV, l 22:21: IV, Once, Denis 00 first dose 12/30/15 16:21:00 SENIOR BI DEVELOPER, stop date 12/30/15 16:21:00 SENIOR BI DEVELOPER Misc 2015-0 No Perico 1,000 mL, Memori a Medication 3-10 Wheat Soln-IV, l 22:21: IV, Once, Denis 00 first dose 12/30/15 16:21:00 SENIOR BI DEVELOPER, stop date 12/30/15 16:21:00 SENIOR BI DEVELOPER [facility] [place] 1,000 mL, Memori a Medication 3-10 Wheat Soln-IV, l 22:21: IV, Once, [place] 00 first dose 12/30/15 16:21:00 SENIOR BI DEVELOPER, stop date 12/30/15 16:21:00 SENIOR BI DEVELOPER [facility] [place]ico 1,000 mL, Memori a Medication 3-10 Wheat Soln-IV, l 22:21: IV, Once, [place] 00 first dose 12/30/15 16:21:00 SENIOR BI DEVELOPER, stop date 12/30/15 16:21:00 SENIOR BI DEVELOPER clindamycin 2015-0 Yes Perico 928.125 M emoria 3-10 Wheat mg, l 22:18: Soln-IV, Denis 00 IV, Once, first dose 12/30/15 16:18:00 SENIOR BI DEVELOPER, stop date 12/30/15 16:18:00 SENIOR BI DEVELOPER clindamycin 2015-0 Yes Perico 928.125 M emoria 3-10 Wheat mg, l 22:18: Soln-IV, [place] 00 IV, Once, first dose 12/30/15 16:18:00 SENIOR BI DEVELOPER, stop date 12/30/15 16:18:00 SENIOR BI DEVELOPER clindamycin 2016-0 Yes Perico 928.125 M emoria 3-10 Wheat mg, l 22:18: Soln-IV, [place] 00 IV, Once, first dose 12/30/15 16:18:00 SENIOR BI DEVELOPER, stop date 12/30/15 16:18:00 SENIOR BI DEVELOPER clindamycin Yes Perico 928.125 M emoria 3-10 Wheat mg, l 22:18: Soln-IV, [place] 00 IV, Once, first dose 12/30/15 16:18:00 SENIOR BI DEVELOPER, stop date 12/30/15 16:18:00 SENIOR BI DEVELOPER clindamycin Yes Perico 928.125 M emoria 3-10 Wheat mg, l 22:18: Soln-IV, [place] 00 IV, Once, first dose 12/30/15 16:18:00 SENIOR BI DEVELOPER, stop date 12/30/15 16:18:00 SENIOR BI DEVELOPER clindamycin Yes Perico 928.125 M emoria 3-10 Wheat mg, l 22:18: Soln-IV, [place] 00 IV, Once, first dose 12/30/15 16:18:00 SENIOR BI DEVELOPER, stop date 12/30/15 16:18:00 SENIOR BI DEVELOPER clindamycin Yes Perico 928.125 M emoria 3-10 Wheat mg, l 22:18: Soln-IV, [place] 00 IV, Once, first dose 12/30/15 16:18:00 SENIOR BI DEVELOPER, stop date 12/30/15 16:18:00 SENIOR BI DEVELOPER fentaNYL No Perico 25 mcg = Mem oria 3-10 Wheat 0.5 mL, l 22:05: Injection, [place] 00 IV, Once, first dose 12/30/15 16:05:00 SENIOR BI DEVELOPER, stop date 12/30/15 16:05:00 SENIOR BI DEVELOPER midazolam No [place]ico 0.5 mg = Me moria 3-10 Wheat 0.5 mL, l 22:05: Injection, [place] 00 IV, Once, first dose 12/30/15 16:05:00 SENIOR BI DEVELOPER, stop date 12/30/15 16:05:00 SENIOR BI DEVELOPER fentaNYL No Perico 25 mcg = Mem oria 3-10 Wheat 0.5 mL, l 22:05: Injection, Denis 00 IV, Once, first dose 12/30/15 16:05:00 SENIOR BI DEVELOPER, stop date 12/30/15 16:05:00 SENIOR BI DEVELOPER midazolam 2015-0 No Perico 0.5 mg = Me moria 3-10 Wheat 0.5 mL, l 22:05: Injection, Denis 00 IV, Once, first dose 12/30/15 16:05:00 SENIOR BI DEVELOPER, stop date 12/30/15 16:05:00 SENIOR BI DEVELOPER fentaNYL 2015-0 No Perico 25 mcg = Mem oria 3-10 Wheat 0.5 mL, l 22:05: Injection, [place] 00 IV, Once, first dose 12/30/15 16:05:00 SENIOR BI DEVELOPER, stop date 12/30/15 16:05:00 SENIOR BI DEVELOPER midazolam 2015-0 No Perico 0.5 mg = Me moria 3-10 Wheat 0.5 mL, l 22:05: Injection, Denis 00 IV, Once, first dose 12/30/15 16:05:00 SENIOR BI DEVELOPER, stop date 12/30/15 16:05:00 SENIOR BI DEVELOPER fentaNYL 2016-0 No Perico 25 mcg = Mem oria 3-10 Wheat 0.5 mL, l 22:05: Injection, [place] 00 IV, Once, first dose 12/30/15 16:05:00 SENIOR BI DEVELOPER, stop date 12/30/15 16:05:00 SENIOR BI DEVELOPER midazolam 2016-0 No Perico 0.5 mg = Me moria 3-10 Wheat 0.5 mL, l 22:05: Injection, [place] 00 IV, Once, first dose 12/30/15 16:05:00 SENIOR BI DEVELOPER, stop date 12/30/15 16:05:00 SENIOR BI DEVELOPER fentaNYL 2016-0 No Perico 25 mcg = Mem oria 3-10 Wheat 0.5 mL, l 22:05: Injection, [place] 00 IV, Once, first dose 12/30/15 16:05:00 SENIOR BI DEVELOPER, stop date 12/30/15 16:05:00 SENIOR BI DEVELOPER midazolam 2015-0 No Perico 0.5 mg = Me moria 3-10 Wheat 0.5 mL, l 22:05: Injection, Denis 00 IV, Once, first dose 12/30/15 16:05:00 SENIOR BI DEVELOPER, stop date 12/30/15 16:05:00 SENIOR BI DEVELOPER fentaNYL 2015-0 No Perico 25 mcg = Mem oria 3-10 Wheat 0.5 mL, l 22:05: Injection, [place] 00 IV, Once, first dose 12/30/15 16:05:00 SENIOR BI DEVELOPER, stop date 12/30/15 16:05:00 SENIOR BI DEVELOPER midazolam 0 No Perico 0.5 mg = Me moria 3-10 Wheat 0.5 mL, l 22:05: Injection, [place] 00 IV, Once, first dose 12/30/15 16:05:00 SENIOR BI DEVELOPER, stop date 12/30/15 16:05:00 SENIOR BI DEVELOPER fentaNYL No Perico 25 mcg = Mem oria 3-10 Wheat 0.5 mL, l 22:05: Injection, Denis 00 IV, Once, first dose 12/30/15 16:05:00 SENIOR BI DEVELOPER, stop date 12/30/15 16:05:00 SENIOR BI DEVELOPER midazolam No Perico 0.5 mg = Me moria 3-10 Wheat 0.5 mL, l 22:05: Injection, [place] 00 IV, Once, first dose 12/30/15 16:05:00 SENIOR BI DEVELOPER, stop date 12/30/15 16:05:00 SENIOR BI DEVELOPER lidocaine 0 No Perico 3 mL, Memor ia 3-10 Wheat Injection, l 21:58: IV, Once, [place] 00 first dose 12/30/15 15:58:00 SENIOR BI DEVELOPER, stop date 12/30/15 15:58:00 SENIOR BI DEVELOPER propofol 2015- No Perico 120 mg = Mem oria 3-10 Wheat 12 mL, l 21:58: Emulsion, Denis 00 IV, Once, first dose 12/30/15 15:58:00 SENIOR BI DEVELOPER, stop date 12/30/15 15:58:00 SENIOR BI DEVELOPER lidocaine 2015-0 No Perico 3 mL, Memor ia 3-10 Wheat Injection, l 21:58: IV, Once, Denis 00 first dose 12/30/15 15:58:00 SENIOR BI DEVELOPER, stop date 12/30/15 15:58:00 SENIOR BI DEVELOPER propofol No Perico 120 mg = Mem oria 3-10 Wheat 12 mL, l 21:58: Emulsion, [place] 00 IV, Once, first dose 12/30/15 15:58:00 SENIOR BI DEVELOPER, stop date 12/30/15 15:58:00 SENIOR BI DEVELOPER lidocaine 2015-0 No Perico 3 mL, Memor ia 3-10 Wheat Injection, l 21:58: IV, Once, [place] 00 first dose 12/30/15 15:58:00 SENIOR BI DEVELOPER, stop date 12/30/15 15:58:00 SENIOR BI DEVELOPER propofol 0 No Perico 120 mg = Mem oria 3-10 Wheat 12 mL, l 21:58: Emulsion, [place] 00 IV, Once, first dose 12/30/15 15:58:00 SENIOR BI DEVELOPER, stop date 12/30/15 15:58:00 SENIOR BI DEVELOPER lidocaine 0 No Perico 3 mL, Memor ia 3-10 Wheat Injection, l 21:58: IV, Once, [place] 00 first dose 12/30/15 15:58:00 SENIOR BI DEVELOPER, stop date 12/30/15 15:58:00 SENIOR BI DEVELOPER propofol No [place] 120 mg = Mem oria 3-10 Wheat 12 mL, l 21:58: Emulsion, [place] 00 IV, Once, first dose 12/30/15 15:58:00 SENIOR BI DEVELOPER, stop date 12/30/15 15:58:00 SENIOR BI DEVELOPER lidocaine 0 No Perico 3 mL, Memor ia 3-10 Wheat Injection, l 21:58: IV, Once, [place] 00 first dose 12/30/15 15:58:00 SENIOR BI DEVELOPER, stop date 12/30/15 15:58:00 SENIOR BI DEVELOPER propofol No [place] 120 mg = Mem oria 3-10 Wheat 12 mL, l 21:58: Emulsion, [place] 00 IV, Once, first dose 12/30/15 15:58:00 SENIOR BI DEVELOPER, stop date 12/30/15 15:58:00 SENIOR BI DEVELOPER lidocaine 0 No Perico 3 mL, Memor ia 3-10 Wheat Injection, l 21:58: IV, Once, [place] 00 first dose 12/30/15 15:58:00 SENIOR BI DEVELOPER, stop date 12/30/15 15:58:00 SENIOR BI DEVELOPER propofol 0 No [place] 120 mg = Mem oria 3-10 Wheat 12 mL, l 21:58: Emulsion, [place] 00 IV, Once, first dose 12/30/15 15:58:00 SENIOR BI DEVELOPER, stop date 12/30/15 15:58:00 SENIOR BI DEVELOPER lidocaine 0 No Perico 3 mL, Memor ia 3-10 Wheat Injection, l 21:58: IV, Once, [place] 00 first dose 12/30/15 15:58:00 SENIOR BI DEVELOPER, stop date 12/30/15 15:58:00 SENIOR BI DEVELOPER propofol 2015-0 No [place]ico 120 mg = Mem oria 3-10 Wheat 12 mL, l 21:58: Emulsion, [place] 00 IV, Once, first dose 12/30/15 15:58:00 SENIOR BI DEVELOPER, stop date 12/30/15 15:58:00 SENIOR BI DEVELOPER midazolam 2015-0 No Perico 0.5 mg = Me moria 3-10 Wheat 0.5 mL, l 21:50: Injection, [place] 00 IV, Once, first dose 12/30/15 15:50:00 SENIOR BI DEVELOPER, stop date 12/30/15 15:50:00 SENIOR BI DEVELOPER fentaNYL 2015- No Perico 25 mcg = Mem oria 3-10 Wheat 0.5 mL, l 21:50: Injection, [place] 00 IV, Once, first dose 12/30/15 15:50:00 SENIOR BI DEVELOPER, stop date 12/30/15 15:50:00 SENIOR BI DEVELOPER midazolam 2015- No [place] 0.5 mg = Me moria 3-10 Wheat 0.5 mL, l 21:50: Injection, [place] 00 IV, Once, first dose 12/30/15 15:50:00 SENIOR BI DEVELOPER, stop date 12/30/15 15:50:00 SENIOR BI DEVELOPER fentaNYL 2015-0 No Perico 25 mcg = Mem oria 3-10 Wheat 0.5 mL, l 21:50: Injection, [place] 00 IV, Once, first dose 12/30/15 15:50:00 SENIOR BI DEVELOPER, stop date 12/30/15 15:50:00 SENIOR BI DEVELOPER midazolam 2015-0 No [place]ico 0.5 mg = Me moria 3-10 Wheat 0.5 mL, l 21:50: Injection, [place] 00 IV, Once, first dose 12/30/15 15:50:00 SENIOR BI DEVELOPER, stop date 12/30/15 15:50:00 SENIOR BI DEVELOPER fentaNYL 2015-0 No Perico 25 mcg = Mem oria 3-10 Wheat 0.5 mL, l 21:50: Injection, Denis 00 IV, Once, first dose 12/30/15 15:50:00 SENIOR BI DEVELOPER, stop date 12/30/15 15:50:00 SENIOR BI DEVELOPER midazolam 2015-0 No Perico 0.5 mg = Me moria 3-10 Wheat 0.5 mL, l 21:50: Injection, [place] 00 IV, Once, first dose 12/30/15 15:50:00 SENIOR BI DEVELOPER, stop date 12/30/15 15:50:00 SENIOR BI DEVELOPER fentaNYL 2015- No Perico 25 mcg = Mem oria 3-10 Wheat 0.5 mL, l 21:50: Injection, [place] 00 IV, Once, first dose 12/30/15 15:50:00 SENIOR BI DEVELOPER, stop date 12/30/15 15:50:00 SENIOR BI DEVELOPER midazolam No Perico 0.5 mg = Me moria 3-10 Wheat 0.5 mL, l 21:50: Injection, Denis 00 IV, Once, first dose 12/30/15 15:50:00 SENIOR BI DEVELOPER, stop date 12/30/15 15:50:00 SENIOR BI DEVELOPER fentaNYL No Perico 25 mcg = Mem oria 3-10 Wheat 0.5 mL, l 21:50: Injection, Denis 00 IV, Once, first dose 12/30/15 15:50:00 SENIOR BI DEVELOPER, stop date 12/30/15 15:50:00 SENIOR BI DEVELOPER midazolam No Perico 0.5 mg = Me moria 3-10 Wheat 0.5 mL, l 21:50: Injection, Denis 00 IV, Once, first dose 12/30/15 15:50:00 SENIOR BI DEVELOPER, stop date 12/30/15 15:50:00 SENIOR BI DEVELOPER fentaNYL No Perico 25 mcg = Mem oria 3-10 Wheat 0.5 mL, l 21:50: Injection, [place] 00 IV, Once, first dose 12/30/15 15:50:00 SENIOR BI DEVELOPER, stop date 12/30/15 15:50:00 SENIOR BI DEVELOPER midazolam No Perico 0.5 mg = Me moria 3-10 Wheat 0.5 mL, l 21:50: Injection, Denis 00 IV, Once, first dose 12/30/15 15:50:00 SENIOR BI DEVELOPER, stop date 12/30/15 15:50:00 SENIOR BI DEVELOPER fentaNYL 2015- No Perico 25 mcg = Mem oria 3-10 Wheat 0.5 mL, l 21:50: Injection, [place] 00 IV, Once, first dose 12/30/15 15:50:00 SENIOR BI DEVELOPER, stop date 12/30/15 15:50:00 SENIOR BI DEVELOPER midazolam 2016-0 No Perico 0.5 mg = Me moria 3-10 Wheat 0.5 mL, l 21:10: Injection, Denis 00 IV, Once, first dose 12/30/15 15:10:00 SENIOR BI DEVELOPER, stop date 12/30/15 15:10:00 SENIOR BI DEVELOPER fentaNYL 2015-0 No Perico 25 mcg = Mem oria 3-10 Wheat 0.5 mL, l 21:10: Injection, [place] 00 IV, Once, first dose 12/30/15 15:10:00 SENIOR BI DEVELOPER, stop date 12/30/15 15:10:00 SENIOR BI DEVELOPER midazolam 2015-0 No Perico 0.5 mg = Me moria 3-10 Wheat 0.5 mL, l 21:10: Injection, [place] 00 IV, Once, first dose 12/30/15 15:10:00 SENIOR BI DEVELOPER, stop date 12/30/15 15:10:00 SENIOR BI DEVELOPER fentaNYL 2015-0 No Perico 25 mcg = Mem oria 3-10 Wheat 0.5 mL, l 21:10: Injection, [place] 00 IV, Once, first dose 12/30/15 15:10:00 SENIOR BI DEVELOPER, stop date 12/30/15 15:10:00 SENIOR BI DEVELOPER midazolam 2015-0 No Perico 0.5 mg = Me moria 3-10 Wheat 0.5 mL, l 21:10: Injection, Denis 00 IV, Once, first dose 12/30/15 15:10:00 SENIOR BI DEVELOPER, stop date 12/30/15 15:10:00 SENIOR BI DEVELOPER fentaNYL 2015-0 No Perico 25 mcg = Mem oria 3-10 Wheat 0.5 mL, l 21:10: Injection, Denis 00 IV, Once, first dose 12/30/15 15:10:00 SENIOR BI DEVELOPER, stop date 12/30/15 15:10:00 SENIOR BI DEVELOPER midazolam 2015-0 No Perico 0.5 mg = Me moria 3-10 Wheat 0.5 mL, l 21:10: Injection, Denis 00 IV, Once, first dose 12/30/15 15:10:00 SENIOR BI DEVELOPER, stop date 12/30/15 15:10:00 SENIOR BI DEVELOPER fentaNYL 2016-0 No Perico 25 mcg = Mem oria 3-10 Wheat 0.5 mL, l 21:10: Injection, Denis 00 IV, Once, first dose 12/30/15 15:10:00 SENIOR BI DEVELOPER, stop date 12/30/15 15:10:00 SENIOR BI DEVELOPER midazolam 2015-0 No Perico 0.5 mg = Me moria 3-10 Wheat 0.5 mL, l 21:10: Injection, Denis 00 IV, Once, first dose 12/30/15 15:10:00 SENIOR BI DEVELOPER, stop date 12/30/15 15:10:00 SENIOR BI DEVELOPER fentaNYL 2015- No Perico 25 mcg = Mem oria 3-10 Wheat 0.5 mL, l 21:10: Injection, Denis 00 IV, Once, first dose 12/30/15 15:10:00 SENIOR BI DEVELOPER, stop date 12/30/15 15:10:00 SENIOR BI DEVELOPER midazolam 2015- No Perico 0.5 mg = Me moria 3-10 Wheat 0.5 mL, l 21:10: Injection, [place] 00 IV, Once, first dose 12/30/15 15:10:00 SENIOR BI DEVELOPER, stop date 12/30/15 15:10:00 SENIOR BI DEVELOPER fentaNYL 2015- No Perico 25 mcg = Mem oria 3-10 Wheat 0.5 mL, l 21:10: Injection, [place] 00 IV, Once, first dose 12/30/15 15:10:00 SENIOR BI DEVELOPER, stop date 12/30/15 15:10:00 SENIOR BI DEVELOPER midazolam 2015-0 No Perico 0.5 mg = Me moria 3-10 Wheat 0.5 mL, l 21:10: Injection, Denis 00 IV, Once, first dose 12/30/15 15:10:00 SENIOR BI DEVELOPER, stop date 12/30/15 15:10:00 SENIOR BI DEVELOPER fentaNYL 2015-0 No Perico 25 mcg = Mem oria 3-10 Wheat 0.5 mL, l 21:10: Injection, [place] 00 IV, Once, first dose 12/30/15 15:10:00 SENIOR BI DEVELOPER, stop date 12/30/15 15:10:00 SENIOR BI DEVELOPER fentaNYL 2015-0 No Perico 25 mcg = Mem oria 3-10 Wheat 0.5 mL, l 21:05: Injection, [place] 00 IV, Once, first dose 12/30/15 15:05:00 SENIOR BI DEVELOPER, stop date 12/30/15 15:05:00 SENIOR BI DEVELOPER midazolam 2015-0 No Perico 0.5 mg = Me moria 3-10 Wheat 0.5 mL, l 21:05: Injection, [place] 00 IV, Once, first dose 12/30/15 15:05:00 SENIOR BI DEVELOPER, stop date 12/30/15 15:05:00 SENIOR BI DEVELOPER fentaNYL 2016-0 No Perico 25 mcg = Mem oria 3-10 Wheat 0.5 mL, l 21:05: Injection, [place] 00 IV, Once, first dose 12/30/15 15:05:00 SENIOR BI DEVELOPER, stop date 12/30/15 15:05:00 SENIOR BI DEVELOPER midazolam 2016-0 No Perico 0.5 mg = Me moria 3-10 Wheat 0.5 mL, l 21:05: Injection, [place] 00 IV, Once, first dose 12/30/15 15:05:00 SENIOR BI DEVELOPER, stop date 12/30/15 15:05:00 SENIOR BI DEVELOPER fentaNYL 2016-0 No Perico 25 mcg = Mem oria 3-10 Wheat 0.5 mL, l 21:05: Injection, [place] 00 IV, Once, first dose 12/30/15 15:05:00 SENIOR BI DEVELOPER, stop date 12/30/15 15:05:00 SENIOR BI DEVELOPER midazolam 2015-0 No Perico 0.5 mg = Me moria 3-10 Wheat 0.5 mL, l 21:05: Injection, [place] 00 IV, Once, first dose 12/30/15 15:05:00 SENIOR BI DEVELOPER, stop date 12/30/15 15:05:00 SENIOR BI DEVELOPER fentaNYL 2016-0 No Perico 25 mcg = Mem oria 3-10 Wheat 0.5 mL, l 21:05: Injection, [place] 00 IV, Once, first dose 12/30/15 15:05:00 SENIOR BI DEVELOPER, stop date 12/30/15 15:05:00 SENIOR BI DEVELOPER midazolam 2015-0 No Perico 0.5 mg = Me moria 3-10 Wheat 0.5 mL, l 21:05: Injection, [place] 00 IV, Once, first dose 12/30/15 15:05:00 SENIOR BI DEVELOPER, stop date 12/30/15 15:05:00 SENIOR BI DEVELOPER fentaNYL 2016-0 No Perico 25 mcg = Mem oria 3-10 Wheat 0.5 mL, l 21:05: Injection, Denis 00 IV, Once, first dose 12/30/15 15:05:00 SENIOR BI DEVELOPER, stop date 12/30/15 15:05:00 SENIOR BI DEVELOPER midazolam 2016-0 No Perico 0.5 mg = Me moria 3-10 Wheat 0.5 mL, l 21:05: Injection, [place] 00 IV, Once, first dose 12/30/15 15:05:00 SENIOR BI DEVELOPER, stop date 12/30/15 15:05:00 SENIOR BI DEVELOPER fentaNYL 2015- No Perico 25 mcg = Mem oria 3-10 Wheat 0.5 mL, l 21:05: Injection, [place] 00 IV, Once, first dose 12/30/15 15:05:00 SENIOR BI DEVELOPER, stop date 12/30/15 15:05:00 SENIOR BI DEVELOPER midazolam No Perico 0.5 mg = Me moria 3-10 Wheat 0.5 mL, l 21:05: Injection, [place] 00 IV, Once, first dose 12/30/15 15:05:00 SENIOR BI DEVELOPER, stop date 12/30/15 15:05:00 SENIOR BI DEVELOPER fentaNYL No Perico 25 mcg = Mem oria 3-10 Wheat 0.5 mL, l 21:05: Injection, [place] 00 IV, Once, first dose 12/30/15 15:05:00 SENIOR BI DEVELOPER, stop date 12/30/15 15:05:00 SENIOR BI DEVELOPER midazolam No Perico 0.5 mg = Me moria 3-10 Wheat 0.5 mL, l 21:05: Injection, [place] 00 IV, Once, first dose 12/30/15 15:05:00 SENIOR BI DEVELOPER, stop date 12/30/15 15:05:00 SENIOR BI DEVELOPER clindamycin No Jose Francisco 900 mg, IV Memoria 3-10 Johnson Piggyback, l 20:00: Once, [place] 00 infuse over 30 minutes, first dose 12/30/15 14:00:00 SENIOR BI DEVELOPER, stop date 12/30/15 14:00:00 SENIOR BI DEVELOPER, Prophylaxi s clindamycin No Jose Francisco 900 mg, IV Memoria 3-10 Johnson Piggyback, l 20:00: Once, Denis 00 infuse over 30 minutes, first dose 12/30/15 14:00:00 SENIOR BI DEVELOPER, stop date 12/30/15 14:00:00 SENIOR BI DEVELOPER, Prophylaxi s clindamycin No Jose Francisco 900 mg, IV Memoria 3-10 Johnson Piggyback, l 20:00: Once, [place] 00 infuse over 30 minutes, first dose 12/30/15 14:00:00 SENIOR BI DEVELOPER, stop date 12/30/15 14:00:00 SENIOR BI DEVELOPER, Prophylaxi s clindamycin 2015-0 No Jose Francisco 900 mg, IV Memoria 3-10 Johnson Piggyback, l 20:00: Once, [place] 00 infuse over 30 minutes, first dose 12/30/15 14:00:00 SENIOR BI DEVELOPER, stop date 12/30/15 14:00:00 SENIOR BI DEVELOPER, Prophylaxi s clindamycin 0 No Jose Francisco 900 mg, IV Memoria 3-10 Johnson Piggyback, l 20:00: Once, Denis 00 infuse over 30 minutes, first dose 12/30/15 14:00:00 SENIOR BI DEVELOPER, stop date 12/30/15 14:00:00 SENIOR BI DEVELOPER, Prophylaxi s clindamycin 0 No Jose Francisco 900 mg, IV Memoria 3-10 Johnson Piggyback, l 20:00: Once, [place] 00 infuse over 30 minutes, first dose 12/30/15 14:00:00 SENIOR BI DEVELOPER, stop date 12/30/15 14:00:00 SENIOR BI DEVELOPER, Prophylaxi s clindamycin 0 No Jose Francisco 900 mg, IV Memoria 3-10 Johnson Piggyback, l 20:00: Once, Denis 00 infuse over 30 minutes, first dose 12/30/15 14:00:00 SENIOR BI DEVELOPER, stop date 12/30/15 14:00:00 SENIOR BI DEVELOPER, Prophylaxi s LR 1,000 mL No Kyle K 1,000 mL, Memoria 3-10 Silvestre IV, 30 l 19:27: mL/hr, start date 12/30/15 13:27:00 SENIOR BI DEVELOPER Lidocaine No Kyle K 0.2 mL, Mem oria 2% 0.2 mL 3-10 Silvestre Injection, l IV Start 19:27: Subcutaneo Her [facility] [[facility]] 00 , Once PRN for other (see comment), first dose 12/30/15 13:27:00 SENIOR BI DEVELOPER LR 1,000 mL No Kyle K 1,000 mL, Memoria 3-10 Silvestre IV, 30 l 19:27: mL/hr, Denis 00 start date 12/30/15 13:27:00 SENIOR BI DEVELOPER Lidocaine No Kyle K 0.2 mL, Mem oria 2% 0.2 mL 3-10 Silvestre Injection, l IV Start 19:27: Subcutaneo Her [place] [[facility]] 00 us, Once PRN for other (see comment), first dose 12/30/15 13:27:00 SENIOR BI DEVELOPER LR 1,000 mL No Kyle K 1,000 mL, Memoria 3-10 Silvestre IV, 30 l 19:27: mL/hr, [place] start date 12/30/15 13:27:00 SENIOR BI DEVELOPER Lidocaine No Kyle K 0.2 mL, Mem oria 2% 0.2 mL 3-10 Silvestre Injection, l IV Start 19:27: Subcutaneo Her [place] [[facility]] 00 us, Once PRN for other (see comment), first dose 12/30/15 13:27:00 SENIOR BI DEVELOPER LR 1,000 mL No Kyle K 1,000 mL, Memoria 3-10 Silvestre IV, 30 l 19:27: mL/hr, [place] 00 start date 12/30/15 13:27:00 SENIOR BI DEVELOPER Lidocaine No Kyle K 0.2 mL, Mem oria 2% 0.2 mL 3-10 Silvestre Injection, l IV Start 19:27: Subcutaneo Her [place] [[facility]] 00 us, Once PRN for other (see comment), first dose 12/30/15 13:27:00 SENIOR BI DEVELOPER LR 1,000 mL No Kyle K 1,000 mL, Memoria 3-10 Silvestre IV, 30 l 19:27: mL/hr, [place] 00 start date 12/30/15 13:27:00 SENIOR BI DEVELOPER Lidocaine No Kyle K 0.2 mL, Mem oria 2% 0.2 mL 3-10 Silvestre Injection, l IV Start 19:27: Subcutaneo Her [place] [facility] 00 us, Once PRN for other (see comment), first dose 12/30/15 13:27:00 SENIOR BI DEVELOPER LR 1,000 mL No Kyle K 1,000 mL, Memoria 3-10 Silvestre IV, 30 l 19:27: mL/hr, [place] start date 12/30/15 13:27:00 SENIOR BI DEVELOPER Lidocaine No Kyle K 0.2 mL, Mem oria 2% 0.2 mL 3-10 Silvestre Injection, l IV Start 19:27: Subcutaneo Her [place] [[place]] 00 us, Once PRN for other (see comment), first dose 12/30/15 13:27:00 SENIOR BI DEVELOPER LR 1,000 mL 2015- No Kyle K 1,000 mL, Memoria 3-10 Silvestre IV, 30 l 19:27: mL/hr, [place] 00 start date 12/30/15 13:27:00 SENIOR BI DEVELOPER Lidocaine No Kyle K 0.2 mL, Mem oria 2% 0.2 mL 3-10 Silvestre Injection, l IV Start 19:27: Subcutaneo Her [place] [[place]] 00 us, Once PRN for other (see comment), first dose 12/30/15 13:27:00 SENIOR BI DEVELOPER Seroquel Yes 100 mg, Memori a 3-09 Oral, l 14:40: Daily, 0 [place] 00 Refill(s), migraines acetaminoph Yes 1 tabs, Mem oria en-HYDROcod 3- Oral, l one 325 14:40: q6hr, 0 Denis mg-5 mg 00 Refill(s), oral tablet pain traMADol 50 Yes 50 mg = 1 M emoria mg oral 3-09 tabs, l tablet 14:40: Oral, [place] 00 q4hr, 0 Refill(s), pain amLODIPine- Yes [...] 12.5 mg = Me moria mg oral -09 1 tabs, l tablet 14:40: Oral, [place] 00 Once, PRN for migraine headache, may repeat dose once in 2 hours, # 6 tabs, 0 Refill(s), migrainesm ay repeat dose once in 2 hours Wellbutrin Yes 300 mg, Turner arnoldo XL 12-28 Oral, l 14:40: q24hr, 0 [place] 00 Refill(s), migraines Seroquel Yes 100 mg, [...] Bi-Flex 3-09 Daily, 0 l 14:40: Refill(s), [place] 00 supplement Nature's Yes 1,000 mg = [...] XL 3-09 Oral, l 14:40: q24hr, 0 [place] 00 Refill(s), migraines Seroquel Yes 100 mg, Memori a 3- Oral, l 14:40: Daily, 0 [place] 00 Refill(s), migraines acetaminoph Yes 1 tabs, Mem oria en-HYDROcod 3- Oral, l one 325 14:40: q6hr, 0 Denis mg-5 mg 00 Refill(s), oral tablet pain traMADol 50 Yes 50 mg = 1 M emoria mg oral 3-09 tabs, l tablet 14:40: Oral, [place] 00 q4hr, 0 Refill(s), pain amLODIPine- Yes 1 tabs, Mem oria atorvastati 3- Oral, qHS, l n 5 mg-40 14:40: 0 [place] mg oral 00 Refill(s), tablet cholestero l/hyperten [...] XL 3-09 Oral, l 14:40: q24hr, 0 [place] 00 Refill(s), migraines Seroquel Yes 100 mg, Memori a 3-09 Oral, l 14:40: Daily, 0 [place] 00 Refill(s), migraines acetaminoph Yes 1 tabs, Mem oria en-HYDROcod 3-09 Oral, l one 325 14:40: q6hr, 0 Denis mg-5 mg 00 Refill(s), oral tablet pain traMADol 50 Yes 50 mg = 1 M emoria mg oral 3- tabs, l tablet 14:40: Oral, [place] 00 q4hr, 0 Refill(s), pain amLODIPine- Yes 1 tabs, Mem oria atorvastati 12-28 Oral, qHS, l n 5 mg-40 14:40: 0 [place] mg oral 00 Refill(s), tablet cholestero l/hyperten will Osteo Yes Oral, Memoria Bi-Flex 3- Daily, 0 l 14:40: Refill(s), Denis 00 supplement Nature's Yes 1,000 mg = Mem oria Bounty Red 12-28 2 caps, l Krill Oil 14:40: Oral, BID, He [place] 500 mg oral 00 0 capsule Refill(s), supplement aspirin 81 Yes 81 mg = 1 Me moria mg oral 3- tabs, l tablet 14:40: Oral, [place] 00 Daily, 0 Refill(s), supplement Axert 12.5 Yes 12.5 mg = Me moria mg oral 12-28 1 tabs, l tablet 14:40: Oral, [place] 00 Once, PRN for migraine headache, may [...] oral 3-09 tabs, l tablet 14:40: Oral, [place] 00 q4hr, 0 Refill(s), pain amLODIPine- Yes 1 tabs, Mem oria atorvastati 3- Oral, qHS, l n 5 mg-40 14:40: 0 [place] mg oral 00 Refill(s), tablet cholestero l/hyperten [...] oral - tabs, l tablet 14:40: Oral, [place] 00 Daily, 0 Refill(s), supplement Axert 12.5 Yes 12.5 mg = Me moria mg oral 12-28 1 tabs, l tablet 14:40: Oral, Denis 00 Once, PRN for migraine headache, may repeat dose once in 2 hours, # 6 tabs, 0 Refill(s), migrainesm ay repeat dose once in 2 hours Wellbutrin Yes 300 mg, Turner arnoldo XL - Oral, l 14:40: q24hr, 0 [place] 00 Refill(s), migraines Seroquel Yes 100 mg, Memori a 3-09 Oral, l 14:40: Daily, 0 [place] 00 Refill(s), migraines acetaminoph Yes 1 tabs, Mem oria en-HYDROcod - Oral, l one 325 14:40: q6hr, 0 [place] mg-5 mg 00 Refill(s), oral tablet pain traMADol 50 Yes 50 mg = 1 M emoria mg oral 3-09 tabs, l tablet 14:40: Oral, [place] 00 q4hr, 0 Refill(s), pain amLODIPine- Yes 1 tabs, Mem oria atorvastati 12-28 Oral, qHS, l n 5 mg-40 14:40: 0 [place] mg oral 00 Refill(s), tablet cholestero l/hyperten will Osteo Yes Oral, Memoria Bi-Flex 3- Daily, 0 l 14:40: Refill(s), [place] 00 supplement Nature's Yes 1,000 mg = Mem oria Bounty Red 12-28 2 caps, l Krill Oil 14:40: Oral, BID, He rmann 500 mg oral 00 0 capsule Refill(s), supplement aspirin 81 Yes 81 mg = 1 Me moria mg oral 12-28 tabs, l tablet 14:40: Oral, [place] 00 Daily, 0 Refill(s), supplement Axert 12.5 Yes 12.5 mg = Me moria mg oral 12-28 1 tabs, l tablet 14:40: Oral, [place] 00 Once, PRN for migraine headache, may repeat dose once in 2 hours, # 6 tabs, 0 Refill(s), migrainesm ay repeat dose once in 2 hours Wellbutrin Yes 300 mg, Turner arnoldo XL 12-28 Oral, l 14:40: q24hr, 0 [place] 00 Refill(s), migraines Seroquel Yes 100 mg, [...] qHS, l n 5 mg-40 14:40: 0 [place] mg oral 00 Refill(s), tablet cholestero l/hyperten will Osteo 2015- Yes Oral, Memoria Bi-Flex 3-09 Daily, 0 l 14:40: Refill(s), [place] 00 supplement Nature's Yes 1,000 mg = Mem oria Bounty Red 12-28 2 caps, l Krill Oil 14:40: Oral, BID, He [place] 500 mg oral 00 0 capsule Refill(s), supplement aspirin 81 Yes 81 mg = 1 Me moria mg oral 12-28 tabs, l tablet 14:40: Oral, [place] 00 Daily, 0 Refill(s), supplement Axert 12.5 Yes 12.5 mg = Me moria mg oral 12-28 1 tabs, l tablet 14:40: Oral, [place] 00 Once, PRN for migraine headache, may repeat dose once in 2 hours, # 6 tabs, 0 Refill(s), migrainesm ay repeat dose once in 2 hours Wellbutrin Yes 300 mg, Turner arnoldo XL 12-28 Oral, l 14:40: q24hr, 0 Denis 00 Refill(s), migraines Immunizations Ordered Immunization Filled Immunization Date Status Commen ts Source Name Name FLUCELVAX QUAD 2022-06-[address] 00:00[facility]00 [facility] Bebtelovimab 2022-04-16 [facility]pleted [facility] 00:[facility]00 [facility] FLUCELVAX QUAD 2021-07-[address] 00:[facility]:00 [facility] FLUCELVAX QUAD 2020-09-[address] [facility] Hx [...] hunt vaccine-unspecified< 00:00:00 sup>1</sup> Tdap 2019-06-28 [facility]pleted [facility] pneumococcal 2019-05-14 [facility] kg Systolic blood 2022-09-27 08:05:00 133 mm[Hg] [facility] Diastolic blood 2022-09-27 08:05:00 87 mm[Hg] [facility] Heart rate 2022-09-27 08:05:00 104 /min [facility] Body temperature 2022-09-27 08:05:00 35.56 [facility] Respiratory rate 2022-09-27 08:05:00 20 /min [facility] Oxygen saturation in 2022-09-27 08:05:00 98 /min [facility] Arterial blood by [facility] Pulse oximetry Body weight 2022-09-25 11:28:00 98.2 kg [facility] BMI 2022-09-25 11:28:00 33.91 kg/m2 [facility] Body height 2022-09-23 16:00:00 170.2 cm [facility] Systolic blood 2022-08-27 21:24:34 114 mm[Hg] [facility] pressure Diastolic blood 2022-08-27 21:24:34 57 mm[Hg] [facility] pressure Heart rate 2022-08-27 21:24:34 87 /min [facility] Body temperature 2022-08-27 21:24:34 36.61 Linda [facility] Respiratory rate 2022-08-27 21:24:34 18 /min [facility] Oxygen saturation in 2022-08-27 21:24:34 100 /min [facility] Arterial blood by Pulse oximetry Body height 2022-08-27 05:00:00 170.2 cm [facility] Body weight 2022-08-27 05:00:00 107.2 kg [facility] BMI 2022-08-27 05:00:00 37.02 kg/m2 [facility] Temperature Oral (F) 2022-04-19 19:52:00 97.6 F [facility] Denis Height 2022-04-19 19:52:00 170.18 cm [facility] Denis Weight 2022-04-19 19:52:00 [facility] [place] BMI Calculated 2022-04-19 19:52:00 [facility] [place] Heart Rate 2021-10-17 21:23:00 [facility] [place] Systolic (mm Hg) 2021-10-17 21:23:00 [facility] [place] Diastolic (mm Hg) 2021-10-17 21:23:00 [facility] [place] Height 2021-10-17 21:23:00 165.1 cm [facility] Weight 2021-10-17 21:23:00 [facility] BMI Calculated 2021-10-17 21:23:00 [facility] [place] Heart Rate 2021-09-09 20:12:00 [facility] [place] Heart Rate 2021-09-09 20:08:00 [facility] [place] Systolic (mm Hg) 2021-09-09 20:08:00 Turner [facility] [place] Diastolic (mm Hg) 2021-09-09 20:08:00 Mem [facility] [place] Height 2021-09-09 20:08:00 165.1 cm [facility] Weight 2021-09-09 20:08:00 [facility] BMI Calculated 2021-09-09 20:08:00 [facility] [place] Systolic (mm Hg) 2020-09-15 15:59:00 Turner rial Denis Diastolic (mm Hg) 2020-09-15 15:59:00 Mem orial [place] Heart Rate 2020-09-15 15:59:00 [facility] [place] Height 2020-09-15 15:59:00 165.1 cm [facility] Weight 2020-09-15 15:59:00 [facility] [place] BMI Calculated 2020-09-15 15:59:00 [facility] [place] Systolic (mm Hg) 2019-12-16 20:42:00 Turner rial [place] Diastolic (mm Hg) 2019-12-16 20:42:00 Mem orial [place] Heart Rate 2019-12-16 20:42:00 [facility] [place] Temperature Oral (F) 2019-12-16 20:42:00 98.2 F [facility] [place] Height 2019-12-16 20:42:00 170.18 cm [facility] Weight 2019-12-16 20:42:00 [facility] BMI Calculated 2019-12-16 20:42:00 [facility] [place] Systolic (mm Hg) 2019-10-02 21:53:00 Turner rial [place] Diastolic (mm Hg) 2019-10-02 21:53:00 Mem [facility] [place] Heart Rate 2019-10-02 21:53:00 [facility] [place] Temperature Oral (F) 2019-10-02 21:53:00 97.9 F [facility] [place] Height 2019-10-02 21:53:00 165.1 cm [facility] [place] Weight 2019-10-02 21:53:00 [facility] [place] BMI Calculated 2019-10-02 21:53:00 [facility] [place] Height 2019-08-15 14:54:00 165.1 cm [facility] [place] Weight 2019-08-15 14:54:00 [facility] [place] BMI Calculated 2019-08-15 14:54:00 [facility] [place] Systolic (mm Hg) 2019-08-15 14:54:00 Turner rial [place] Diastolic (mm Hg) 2019-08-15 14:54:00 Mem [facility] [place] Heart Rate 2019-08-15 14:54:00 [facility] [place] Temperature Oral (F) 2019-08-15 14:54:00 97.6 F [facility] [place] Systolic (mm Hg) 2019-07-31 15:37:00 Turner rial [place] Diastolic (mm Hg) 2019-07-31 15:37:00 Mem [facility] [place] Heart Rate 2019-07-31 15:37:00 [facility] Temperature Oral (F) 2019-07-31 15:37:00 98.2 F [facility] [place] Height 2019-07-31 15:37:00 165.1 cm [facility] [place] Weight 2019-07-31 15:37:00 [facility] [place] BMI Calculated 2019-07-31 15:37:00 [facility] [place] Weight 2019-03-27 15:18:00 [facility] [place] BMI Calculated 2019-03-27 15:18:00 [facility] [place] Height 2019-03-27 15:18:00 165.1 cm [facility] Temperature Oral (F) 2019-03-27 15:18:00 98.4 F [facility] [place] Heart Rate 2019-03-27 15:18:00 [facility] [place] Systolic (mm Hg) 2019-03-27 15:18:00 Turner rial [place] Diastolic (mm Hg) 2019-03-27 15:18:00 Mem [facility]rial [place] Height 2019-01-02 19:16:00 165.1 cm [facility] [place] BMI Calculated 2019-01-02 19:16:00 [facility] [place] Weight 2019-01-02 19:16:00 [facility] Heart Rate 2019-01-02 19:16:00 [facility] [place] Systolic (mm Hg) 2019-01-02 19:16:00 Turner rial [place] Diastolic (mm Hg) 2019-01-02 19:16:00 [facility] [place] Height 2019-01-02 14:26:00 167.01 cm [facility] BMI Calculated 2019-01-02 14:26:00 [facility] [place] Weight 2019-01-02 14:26:00 [facility] Heart Rate 2019-01-02 14:26:00 [facility] [place] Temperature Oral (F) 2019-01-02 14:26:00 97.9 F [facility] [place] Systolic (mm Hg) 2019-01-02 14:26:00 Turner rial [place] Diastolic (mm Hg) 2019-01-02 14:26:00 [facility] Systolic (mm Hg) 2018-07-18 18:33:00 [facility] Diastolic (mm Hg) 2018-07-18 18:33:00 [facility] Heart Rate 2018-07-18 18:33:00 [facility] Weight 2018-07-18 18:33:00 [facility] BMI Calculated 2018-06-11 18:31:00 [facility] Weight 2018-06-11 18:31:00 [facility] Systolic (mm Hg) 2018-06-11 18:31:00 [facility] Diastolic (mm Hg) 2018-06-11 18:31:00 [facility] Height 2018-06-11 18:31:00 170.18 cm [facility] Temperature Oral (F) 2018-06-11 18:31:00 98.3 F [facility] Heart Rate 2018-06-11 18:31:00 [facility] Weight 2018-01-10 16:14:00 [facility] Height 2018-01-10 16:14:00 170.18 cm [facility] BMI Calculated 2018-01-10 16:14:00 [facility] Heart Rate 2018-01-10 16:14:00 [facility] Systolic (mm Hg) 2018-01-10 16:14:00 [facility] Diastolic (mm Hg) 2018-01-10 16:14:00 [facility] BMI Calculated 2018-01-09 15:06:00 [facility] Height 2018-01-09 15:06:00 170.18 cm [facility] Weight 2018-01-09 15:06:00 [facility] Systolic (mm [...] [facility] Respitory Rate 2015-12-31 00:50:00 [facility] Heart Rate 2015-12-31 00:50:00 [facility] Systolic (mm Hg) 2015-12-31 00:40:00 [facility] Respitory Rate 2015-12-31 00:40:00 [facility] Heart Rate 2015-12-31 00:40:00 [facility] Heart Rate 2015-12-31 00:30:00 [facility] Systolic (mm Hg) 2015-12-31 00:30:00 [facility] Temperature Oral (F) 2015-12-30 23:50:00 37.1 [facility] Height 2015-12-30 19:23:00 169 cm [facility] Weight 2015-12-30 19:23:00 [facility] Temperature Oral (F) 2015-12-30 19:23:00 36.6 Linda [facility] Height 2015-12-29 14:13:00 170 cm [facility] Weight 2015-12-29 14:13:00 [facility] Procedures Procedure Date / Time Performing Clinician Source Performed ULTRAFILTRATION HD CRRT 2022-09-26 18:40:00 Vee Coleman [facility] ECG 12-LEAD 2022-09-26 10:57:31 Unknown, 7 [facility] ECG 12-LEAD 2022-09-26 10:57:31 Unknown, Hl7 [facility] NM MYOCARDIAL PERFUSION 2022-09-26 10:55:00 Yaritza Reid [facility] PET/CT (REST & STRESS) Medical C enter TREADMILL 2022-09-26 10:49:30 Unknown, 7 [facility] TOLERANCE(NON-NUCLEAR Medical Ce nter TREADMILL) ECG 12-LEAD 2022-09-26 10:49:10 Unknown, 7 [facility] ECG 12-LEAD 2022-09-26 10:49:10 Unknown, 7 [facility] CBC W/PLT COUNT & AUTO 2022-09-26 03:40:00 Tre [facility] BASIC METABOLIC PANEL 2022-09-26 03:40:00 [facility] 2022-09-26 03:40:00 [facility] PHOSPHORUS 2022-09-26 03:40:00 [facility] CBC W/PLT COUNT & AUTO 2022-09-26 03:40:00 Indio Cardozo [facility] HEPATITIS B SURFACE 2022-09-25 08:07:[address] [facility] HEMODIALYSIS INPATIENT 2022-09-25 07:15:26 Ry Prajapati [facility] CBC W/PLT COUNT & AUTO 2022-09-25 04:40:00 [facility]orge [facility] BASIC METABOLIC PANEL 2022-09-25 04:40:00 [facility] MAGNESIUM 2022-09-25 04:40:00 [facility] PHOSPHORUS 2022-09-25 04:40:00 [facility] HEPATITIS C ANTIBODY 2022-09-25 04:40:00 Keith Mantilla [facility] PERIPHERAL BLOOD SMEAR - 2022-09-25 04:40:00 Keith Mantilla a [facility] PATHOLOGIST REVIEW Medical [facility] CBC W/PLT COUNT & AUTO 2022-09-25 04:40:00 Indio Cardozo [facility] 2D ECHO W/ DOPPLER 2022-09-24 15:49:57 Indio Cardozo [facility] (CW/PW/COLOR) [facility] CBC W/PLT COUNT & AUTO 2022-09-24 04:30:00 Indio Cardozo [facility] CBC W/PLT COUNT & AUTO 2022-09-24 04:30:00 Tre [facility] BASIC METABOLIC PANEL 2022-09-24 04:30:00 [facility] MAGNESIUM 2022-09-24 04:30:00 [facility] PHOSPHORUS 2022-09-24 04:30:00 [facility] PROTEIN ELECTROPHORESIS, 2022-09-24 04:30:[address] [facility] HIGH SENSITIVITY TROPONIN 2022-09-23 18:09:00 Celli, Indio Sydnee [facility] POTASSIUM 2022-09-23 18:09:00 [facility] XR CHEST 1 VIEW PORTABLE / 2022-09-23 15:31:[address] [facility] CBC W/PLT COUNT & AUTO 2022-09-23 15:15:00 CelliIndio [facility] COMPREHENSIVE METABOLIC 2022-09-23 15:15:00 CelliIndio [facility] MAGNESIUM 2022-09-23 15:15:00 [facility] PHOS[facility]US 2022-09-23 15:15:00 Celli [facility] HIGH SENSITIVITY TROPONIN 2022-09-23 15:15:00 CelliIndio Sydnee [facility] B-TYPE NATRIURETIC FACTOR 2022-09-23 15:15:00 CelliIndio [facility] ([facility]NP) [facility] [place] CBC W/PLT COUNT & AUTO 2022-09-23 15:15:00 CelliIndio [facility] TSH 2022-09-23 15:14:00 Cell[facility]Indio [facility] ECG 12-LEAD 2022-09-23 14:50:19 Unknown, Hl7 [facility] ECG 12-LEAD 2022-09-23 14:50:19 Unknown, Hl7 [facility] ECG 12-LEAD 2022-09-23 14:50:19 Unknown, Hl7 [facility] PROTHROMBIN TIME WITH INR 2022-08-27 06:57:00 Cy Sosa [facility] METABOLIC 2022-08-27 06:57:00 Cy Sosa [facility] PANEL MAGNESIUM LEVEL 2022-08-27 06:57:00 CristoferCy brown Ho spital PHOSPHORUS LEVEL 2022-08-27 06:57:00 Cy Sosa H ospital ESTIMATED GFR 2022-08-27 06:57:00 Cy Sosa Ho spital TROPONIN T 2022-08-27 06:57:00 Annabel Sosanygabriele Arnold spital ZZCOVID-19 ANTI-SPIKE IGG 2022-08-27 06:56:00 Cristofer [facility] ANTIBODY TITER COVID-19 SEROLOGY PATIENT 2022-08-27 06:56:00 Cristofer [facility] SURVEILLANCE HC COMPLETE BLD COUNT 2022-08-27 06:56:00 Cy Sosa [facility] W/AUTO DIFF COVID-19 QUALITATIVE 2022-08-27 04:58:00 [facility] RT-PCR TROPONIN T 2022-08-27 03:58:00 Cy Sosa spital XR CHEST 1 VW PORTABLE 2022-08-27 01:31:25 [facility] 2022-08-27 01:20:00 [facility] PANEL LIPASE LEVEL 2022-08-27 01:20:[address] [facility] TROPONIN T 2022-08-27 01:20:00 Cy Sosa spital B NATRIURETIC PEPTIDE 2022-08-27 01:20:00 [facility] HC COMPLETE BLD COUNT 2022-08-27 01:20:00 [facility] W/AUTO DIFF ESTIMATED GFR 2022-08-27 01:20:[address] [facility] ECG 12-LEAD 2022-08-27 01:03:45 Cy Sosa spital COMPREHENSIVE METABOLIC 2022-08-22 16:47:00 [facility] PANEL Herbert CBC WITH PLATELET AND 2022-08-22 16:47:00 [facility] DIFFERENTIAL Herbert THYROID STIMULATING 2022-08-22 16:47:00 [facility] HORMONE Herbert PARATHYROID HORMONE 2022-08-22 16:47:00 [facility] Herbert VITAMIN D 25 HYDROXY LEVEL 2022-08-22 16:47:00 [facility] NM BONE SCAN 3 PHASE 2022-07-26 18:11:00 [facility] Herbert BONE DENSITY 2022-07-26 14:02:48 [facility] Herbert BONE DENSITY PERIPHERAL 2022-07-26 14:02:48 [facility] Herbert POC GLUCOSE 2022-06-28 04:49:00 Maddison Wharton spital CBC HEMOGRAM 2022-06-27 10:05:00 [facility] BASIC METABOLIC PANEL 2022-06-27 10:05:00 [facility] ESTIMATED GFR 2022-06-27 10:05:00 [facility] Herbert XR LUMBAR SPINE 2 OR 3 VW 2022-06-26 21:10:24 [facility] XR THORACIC SPINE 2 VW 2022-06-26 21:10:08 John, Keith [facility] XR CHEST 1 VW PORTABLE 2022-06-26 19:05:29 Asamili Adil [facility] BASIC METABOLIC PANEL 2022-06-26 09:08:00 [facility] PHOSPHORUS LEVEL 2022-06-26 09:08:00 [facility] ESTIMATED GFR 2022-06-26 09:08:00 [facility] TTE COMPLETE, WO CONTRAST, 2022-06-25 15:40:58 [facility] D[facility]ER ([id number][facility] MRI THORACIC SPINE WO 2022-06-25 02:11:31 Mary Ontiveros [facility] CONTRAST Herbert MRI LUMBAR SPINE WO 2022-06-25 01:29:36 Clifton Lantigua [facility] CONTRAST [facility] HEPATITIS B CORE ANTIBODY 2022-06-24 17:34:00 Dina Cuello [facility] TOTAL HEPATITIS B SURFACE AB, 2022-06-24 17:34:00 Dina Cuello [facility] QUANTITATIVE HEPATITIS B SURFACE 2022-06-24 17:34:00 [facility] ANTIGEN COVID-19 QUALITATIVE 2022-06-24 16:35:00 Clifton Lantigua [facility] RT-PCR [facility] COVID-19 OMICRON VARIANT 2022-06-24 16:35:00 Clifton Lantigua [facility] QUALITATIVE RT-PCR [facility] POC GLUCOSE 2022-06-24 16:35:00 Maddison Wharton [facility] POC GLUCOSE 2022-06-24 15:09:00 Clifton Lantigua [facility] LUMBAR SPINE WO 2022-06-24 13:41:51 Clifton Lantigua [facility] CONTRAST [facility] CT RENAL STONE PROTOCOL 2022-06-24 13:41:38 Clifton Lantigua [facility] HC COMPLETE BLD COUNT 2022-06-24 12:44:00 Clifton Lantigua [facility] W/AUTO DIFF [facility] COMPREHENSIVE METABOLIC 2022-06-24 12:44:00 LantiguaAnne moraeswestern missouri medical centerturner [facility] PANEL [facility] ESTIMATED GFR 2022-06-24 12:44:00 [facility] CRITICAL CARE, E/M 2022-06-24 12:28:33 Clifton Lantigua [facility] 30-74 MINUTES [facility] HEPATITIS B SURFACE 2022-05-20 15:33:[address] [facility] HEPATITIS B SURFACE 2022-05-20 15:33:00 [facility] ANTIBODY [facility] XR CHEST 1 VW PORTABLE 2022-04-29 13:25:18 Georgiana Kayya Kyle [facility] COMPREHENSIVE METABOLIC 2022-04-29 10:32:00 Wendie [facility] PANEL HC COMPLETE BLD COUNT 2022-04-29 10:32:00 [facility] glad[facility] W/AUTO DIFF ESTIMATED GFR 2022-04-29 10:32:00 Wendie [facility] HEMODIALYSIS 2022-04-29 05:06:40 Baranonima-DacSil pizarro ospital [facility] HEPATITIS B CORE ANTIBODY 2022-04-28 20:59:00 Jeffry, [facility] TOTAL [facility] HEPATITIS B CORE ANTIBODY 2022-04-28 20:59:00 Jeffry [facility] IGM [facility] HEPATITIS B SURFACE 2022-04-28 20:59:00 Jeffry [facility] ANTIGEN [facility] HEPATITIS B SURFACE AB, 2022-04-28 20:58:00 Jeffry [facility] QUANTITATIVE Valarie HEMODIALYSIS 2022-04-28 15:58:20 Baranonima-Oma Toledoist H ospital [facility] TROPONIN T 2022-04-28 15:44:00 [facility]ie [facility]ST 1 VW PORTABLE 2022-04-28 11:41:07 [facility] TROPONIN T 2022-04-28 11:41:00 [facility] HC COMPLETE BLD COUNT 2022-04-28 11:41:00 Wendie [facility] W/AUTO DIFF COMPREHENSIVE METABOLIC 2022-04-28 11:41:00 [facility] PANEL PROTHROMBIN TIME WITH INR 2022-04-28 11:41:00 Jt Pressley [facility] PARTIAL THROMBOPLASTIN 2022-04-28 11:41:00 [facility] TIME (PTT) B NATRIURETIC PEPTIDE 2022-04-28 11:41:00 [facility] PROCALCITONIN 2022-04-28 11:41:00 [facility] CREATINE KINASE, TOTAL 2022-04-28 11:41:00 [facility] (CPK) C-REACTIVE PROTEIN 2022-04-28 11:41:00 [facility] INTERLEUKIN 6 2022-04-28 11:41:00 [facility] FERRITIN LEVEL 2022-04-28 11:41:00 [facility] D-DIMER 2022-04-28 11:41:00 [facility] LDH 2022-04-28 11:41:00 [facility] FIBRINOGEN 2022-04-28 11:41:00 [facility] ESTIMATED GFR 2022-04-28 11:41:00 [facility] RESPIRATORY PATHOGEN PANEL 2022-04-28 09:45:00 Taylor Woodall [facility] WITH COVID-19 RT-PCR [facility] XR CHEST 1 VW 2022-04-28 08:05:46 Taylor Woodall BLOOD CULTURE, AEROBIC & 2022-04-28 07:49:00 Taylor Woodall [facility] ANAEROBIC [facility] HC COMPLETE BLD COUNT 2022-04-28 07:49:00 Taylor Woodall [facility] W/AUTO DIFF [facility] COMPREHENSIVE METABOLIC 2022-04-28 07:49:00 Taylor Woodall [facility] PANEL [facility] TROPONIN T 2022-04-28 07:49:00 [facility] B NATRIURETIC PEPTIDE 2022-04-28 07:49:[address] [facility] [place] [place] [facility] ESTIMATED GFR 2022-04-28 07:49:00 Taylor Woodall ECG ED PRELIMINARY 2022-04-28 07:26:13 [facility] INTERPRETATION [facility] ECG 12-LEAD 2022-04-28 07:20:02 Taylor Woodall [facility] ospital [place] [facility] ABDOMEN PELVIS WO 2022-04-16 23:38:27 Cornelio [facility] CONTRAST HC COMPLETE BLD COUNT 2022-04-16 23:14:00 Cornelio [facility] W/AUTO DIFF COMPREHENSIVE METABOLIC 2022-04-16 23:14:00 [facility] PANEL LIPASE LEVEL 2022-04-16 23:14:00 [facility] GFR 2022-04-16 23:14:00 [facility] BASIC METABOLIC PANEL 2022-04-14 22:54:00 Jeffry [facility] ESTIMATED GFR 2022-04-14 22:54:[address] [facility] POC GLUCOSE 2022-04-14 22:04:00 Puneet Lovelace [facility] CT ANGIOGRAM PE CHEST 2022-04-14 00:23:56 Fabiola Rashid [facility] IR VERTEBRO LUM UNI OR BALDO 2022-04-13 19:25:00 Jena Cool [facility] ECG 12-LEAD 2022-04-13 18:05:39 Greg Snyder [facility] BASIC METABOLIC PANEL 2022-04-13 10:16:00 Radu Puneet [facility] HC COMPLETE BLD COUNT 2022-04-13 10:16:00 Radu [facility] W/AUTO DIFF PROTHROMBIN TIME WITH INR 2022-04-13 10:16:00 Puneet Lovelace [facility] ESTIMATED GFR 2022-04-13 10:16:00 Puneet Lovelace Hamzah [facility] TYPE AND SCREEN 2022-04-13 10:16:00 Radu Puneet Hamzah [facility] TROPONIN T 2022-04-13 02:33:00 Puneet Lovelace [facility] HEMODIALYSIS 2022-04-13 01:59:31 Baranowska-Daca, [facility] Valarie TTE COMPLETE, WO CONTRAST, 2022-04-13 00:15:00 Puneet Lovelace [facility] W DOPPLER ([id number]) TROPONIN T 2022-04-12 23:10:00 Puneet Lovelace [facility] TROPONIN T 2022-04-12 20:19:00 Radu Puneet [facility] HEMODIALYSIS 2022-04-11 13:51:20 [facility] Valarie HC COMPLETE BLD COUNT 2022-04-11 11:10:00 Travon [facility] W/AUTO DIFF BASIC METABOLIC PANEL 2022-04-11 11:10:00 Travon [facility] PARATHYROID HORMONE 2022-04-11 11:10:00 Travon [facility] VITAMIN D 25 HYDROXY LEVEL 2022-04-11 11:10:00 Travon [facility] DIGOXIN LEVEL 2022-04-11 11:10:00 [facility] PHOSPHORUS LEVEL 2022-04-11 11:10:00 [facility] Valarie ESTIMATED GFR 2022-04-11 11:10:00 Travon [facility] HC COMPLETE BLD COUNT 2022-04-10 09:45:00 Travon [facility] W/AUTO DIFF BASIC METABOLIC PANEL 2022-04-10 09:45:00 [facility] PROTHROMBIN TIME WITH INR 2022-04-10 09:45:00 [facility] ESTIMATED GFR 2022-04-10 09:45:00 [facility] 2022-04-09 22:47:00 Ellie [facility]resp[facility] XR CHEST 1 VW PORTABLE 2022-04-09 17:34:26 [facility] HC COMPLETE BLD COUNT 2022-04-09 10:01:00 [facility] DIFF BASIC METABOLIC PANEL 2022-04-09 10:01:00 Travon Jena [facility] ESTIMATED GFR 2022-04-09 10:01:00 TravonJena hoyt [facility] HEMODIALYSIS 2022-04-08 14:21:31 Baranowska-Daca, [facility]arie HC COMPLETE BLD COUNT 2022-04-08 10:11:00 TravonJena hoyt [facility] W/AUTO DIFF COMPREHENSIVE METABOLIC 2022-04-08 10:11:00 TravonJena Rox [facility] PANEL ESTIMATED GFR 2022-04-08 10:11:00 Travon Jena [facility] MRI LUMBAR SPINE WO 2022-04-08 02:13:34 Gutierrez Leal [facility] CONTRAST POTASSIUM LEVEL 2022-04-07 18:15:00 Baranowska-Daca, [facility] HEPATITIS B SURFACE 2022-04-07 13:46:00 Baranowska-Daca, [facility] ANTIGEN Valarie HEPATITIS B SURFACE 2022-04-07 13:46:00 Baranowska-Daca, [facility] ANTIBODY Valarie TROPONIN T 2022-04-07 13:43:00 Gutierrez Leal Ho spital HEMODIALYSIS 2022-04-07 13:16:08 Baranowska-Daca, [facility] HC COMPLETE BLD COUNT 2022-04-07 11:21:00 Gutierrez Leal [facility] W/AUTO DIFF PROTHROMBIN TIME WITH INR 2022-04-07 11:21:00 Gutierrez Leal [facility] COMPREHENSIVE METABOLIC 2022-04-07 11:21:00 Gutierrez Leal [facility] PANEL THYROID STIMULATING 2022-04-07 11:21:00 Gutierrez Leal [facility] HORMONE ESTIMATED GFR 2022-04-07 11:21:00 Gutierrez Leal spital ZZCOVID-19 ANTI-SPIKE IGG 2022-04-07 06:43:00 Gutierrez Leal [facility] ANTIBODY TITER COVID-19 SEROLOGY PATIENT 2022-04-07 06:43:00 [facility] SUR[facility]ILLANCE TROPONIN T 2022-04-07 06:43:00 Gutierrez Leal spital PROCALCITONIN 2022-04-07 06:43:00 Gutierrez Leal spital URINE CULTURE 2022-04-07 05:18:00 Ellie Crespo spital COVID-19 QUALITATIVE 2022-04-07 04:41:00 Zak [facility] RT-PCR URINALYSIS SCREEN AND 2022-04-07 04:41:[facility] WITH [facility]FLEX TO CULTURE CT ABDOMEN PELVIS WO 2022-04-07 03:51:[facility] SP[facility] WO 2022-04-07 03:49:20 [facility] COMPREHENSIVE METABOLIC 2022-04-07 03:31:00 Zak [facility] PANEL HC COMPLETE BLD COUNT 2022-04-07 03:31:00 Zak [facility] W/AUTO DIFF ESTIMATED GFR 2022-04-07 03:31:00 Ellie Crespo spital XR CHEST 1 VW 2022-04-07 03:22:49 [facility] ED PRELIMINARY 2022-04-07 02:44:33 [facility] INTERPRETATION ECG 12-LEAD 2022-04-07 02:40:03 Gutierrez Leal spital HEMODIALYSIS 2021-12-28 14:28:03 Baranowska-Daca, [facility] BASIC METABOLIC PANEL 2021-12-28 03:17:00 [facility] Valarie ESTIMATED GFR 2021-12-28 03:17:00 Barshaquillewskylee-Paris, [facility] POC GLUCOSE 2021-12-28 02:29:00 Michelle Golden [facility] R IR VERTEBRO CERVICAL AND 2021-12-27 20:19:56 Michelle Golden [facility] THOR UNI OR BALDO R IR VERTEBROPLASTY EA ADDL 2021-12-27 20:19:56 [place] [facility] T OR L R AL AN ELECTIVE 2021-12-27 19:47:00 Devonte Schuster [facility] ENDOTRACHEAL AIRWAY HEMODIALYSIS 2021-12-26 20:14:38 Baranowskylee-Daca, [facility]arie BLOOD CULTURE, AEROBIC & 2021-12-25 20:28:00 Nilesh Nation [facility] ANAEROBIC URINE CULTURE 2021-12-24 23:56:00 Baranowska-Daca, [facility] CT RENAL STONE PROTOCOL 2021-12-24 23:39:33 Barkristian-Daca, [facility] Valarie URINALYSIS SCREEN AND 2021-12-24 22:29:00 [facility] center[facility], [facility] MICROSCOPY, WITH REFLEX TO Valarie CULTURE HEMODIALYSIS 2021-12-24 15:08:13 Baranowskylee-Daca, [facility] HC COMPLETE BLD COUNT 2021-12-23 09:55:00 Brielle [facility] W/AUTO DIFF R BASIC METABOLIC PANEL 2021-12-23 09:55:00 [facility] R PROTHROMBIN TIME WITH INR 2021-12-23 09:55:00 Brielle [facility] R URIC ACID LEVEL 2021-12-23 09:55:00 Baranowska-Daca, [facility] DIGOXIN LEVEL 2021-12-23 09:55:00 Baranowska-Daca, [facility] CORTISOL LEVEL, AM 2021-12-23 09:55:00 Baranowska-Daca, [facility] Valarie HEMOGLOBIN A1C 2021-12-23 09:55:00 Baranowska-Daca, [facility] AMYLASE LEVEL 2021-12-23 09:55:00 Baranowska-Daca, [facility] LIPASE LEVEL 2021-12-23 09:55:00 Baranowska-Paris, [facility] ESTIMATED GFR 2021-12-23 09:55:00 Michelle Golden [facility] R VITAMIN D 25 HYDROXY LEVEL 2021-12-22 09:33:00 Vinnie-Paris, [facility] PARATHYROID HORMONE 2021-12-22 09:33:00 Baranowska-Peea, [facility] PHOSPHORUS LEVEL 2021-12-22 09:33:00 Baranowskylee-Daca, [facility] XR SHOULDER 2+ VW RIGHT 2021-12-22 04:05:25 Baranonima-Daca, [facility] HEMODIALYSIS 2021-12-22 03:41:52 Vinnie-Paris, [facility] [place]arie MRI LUMBAR SPINE WO 2021-12-21 15:10:25 Niesha [facility] CONTRAST MRI THORACIC SPINE WO 2021-12-21 14:44:08 Niesha [facility] CONTRAST BASIC METABOLIC PANEL 2021-12-21 10:43:00 Baranowska-Daca, [facility] ESTIMATED GFR 2021-12-21 10:43:00 Baranowska-Daca, [facility] BASIC METABOLIC PANEL 2021-12-20 22:26:00 Baranowska-Daca, [facility] ESTIMATED GFR 2021-12-20 22:26:00 Baranowska-Daca, [facility] HEMODIALYSIS 2021-12-20 14:03:25 Baranonima-Daca, [facility] HC COMPLETE BLD COUNT 2021-12-20 09:43:00 Clementina Almendarez [facility] W/AUTO DIFF Tajdin COMPREHENSIVE METABOLIC 2021-12-20 09:43:00 Clementina Almendarez [facility] PANEL Tajdin MAGNESIUM LEVEL 2021-12-20 09:43:00 [facility]din ESTIMATED GFR 2021-12-20 09:43:00 [facility] Tajdin TROPONIN T 2021-12-20 00:24:00 Cornelio [facility] HEPATITIS B SURFACE 2021-12-20 00:24:00 Jeffry [facility] ANTIGEN Valarie HEPATITIS B SURFACE AB, 2021-12-20 00:24:00 Jeffry [facility] QUANTITATIVE Valarie HEMODIALYSIS 2021-12-19 22:22:37 Sil Teran ospital [facility] THYROID STIMULATING 2021-12-19 21:32:00 Angy Mccord [facility] HORMONE T4, FREE 2021-12-19 21:32:00 Angy Mccord Ho spital TROPONIN T 2021-12-19 21:32:00 Angy Mccord [facility] COVID-19 QUALITATIVE 2021-12-19 21:22:00 Cornelio [facility] RT-PCR CT LUMBAR SPINE WO 2021-12-19 20:55:41 Cornelio [facility] CONTRAST CT THORACIC SPINE WO 2021-12-19 20:53:28 Cornelio [facility] CONTRAST CT ANGIOGRAM PE CHEST 2021-12-19 20:45:21 Cornelio [facility] ECG 12-LEAD 2021-12-19 19:35:11 Cornelio [facility] XR THORACIC SPINE 2 VW 2021-12-19 19:17:36 Cornelio [facility] HC COMPLETE BLD COUNT 2021-12-19 18:50:00 Cornelio [facility] W/AUTO DIFF COMPREHENSIVE METABOLIC 2021-12-19 18:50:00 Cornelio [facility] PANEL TROPONIN T 2021-12-19 18:50:00 Cornelio [facility] ESTIMATED GFR 2021-12-19 18:50:00 Cornelio [facility] LIPASE LEVEL 2021-12-19 18:50:00 Ray, [facility] ECG ED PRELIMINARY 2021-12-19 18:18:35 Ray, [facility] INTERPRETATION XR CHEST 2 VW 2021-11-14 16:02:54 Scott Flower ospital Diabetic retinal eye 2019-12-11 06:00:00 Memoria l [facility] exam<sup>1</sup> Mammogram 2017-05-05 05:00:00 [facility] Her hunt Colonoscopy<sup>2</sup> 2016-11-17 06:00:00 Turner rial [facility] OPEN REDUCTION INTERNAL 2015-12-30 22:13:00 Jose Francisco Johnson Turner rial Denis FIXATION RADIUS INTRA-ARTICULAR W/3 FRAGMENTS [id number] (Right)<sup>1</sup> Repair of 2015-12-30 06:00:00 Aylin hunt wrist<sup>3</sup> skin cancer removed from 2011-10-22 00:00:00 Mem orial Denis arm [facility]olecyst[facility] Procedure<sup>2</sup> [facility] ermann Tubal ligation [facility] Eye operation [facility] Biopsy of breast [facility] Vicente n bilateral radial [facility] bilateral tubal ligation [facility] Denis colonoscopy [facility] Skin cancer of [facility] arm<sup>4</sup> Plan of Care Planned Activity Planned [...] Future Scheduled 2022-09-01 HEPATITIS B VACCINES Met [facility] Test 11:07:43 (1 of 3 - 3-dose series) [code = HEPATITIS B VACCINES (1 of 3 - 3-dose series)] Future Scheduled 2022-09-01 COVID-19 VACCINE (#1) [facility] Test 11:07:43 [code = COVID-19 VACCINE (#1)] Future Scheduled 2022-09-01 65+ PNEUMOCOCCAL [facility] Test 11:07:43 VACCINE (1 - PCV) [code = 65+ PNEUMOCOCCAL VACCINE (1 - PCV)] Future Scheduled 2022-09-01 SHINGLES VACCINES (1 Met [facility] Test 11:07:43 of 2) [code = SHINGLES VACCINES (1 of 2)] Future Scheduled 2022-09-01 Screening for [facility] Test 11:07:43 malignant neoplasm of cervix (procedure) [code = 711648136] Future Scheduled 2022-09-01 COLONOSCOPY SCREENING [facility] Test 11:07:43 [code = COLONOSCOPY SCREENING] Future Scheduled 2022-09-01 BREAST CANCER [facility] Test 11:07:43 SCREENING [code = [...] [facility] Center breast (procedure) [code = 334966025] Future Scheduled [address] [facility] Test 00:00:00 (combo) [code = CT Medical C enter Colonography (combo)] Future Scheduled [address] [facility] Test 00:00:00 malignant neoplasm of [facility] Center colon (procedure) [code = 077571708] Future Scheduled [address] [facility] Test 00:00:00 malignant neoplasm of [facility] Center colon (procedure) [code = 454492900] Future Scheduled 1956 DXA SCAN [code = DXA [facility] Test 00:00:00 SCAN] [facility] Future Scheduled [address] [facility] Test 00:00:00 malignant neoplasm of [facility] Center colon (procedure) [code = 168901873] Future Scheduled [address] [facility] Test 00:00:00 malignant neoplasm of [facility] Center colon (procedure) [code = 603446186] Future Scheduled 1956 [facility]igmoidoscopy [facility]code = [facility] [address] [facility] Test 00:00:00 malignant neoplasm of [facility]ica [facility] Center breast (procedure) [code = 664902283] Future Scheduled [address] [facility] Test 00:00:00 (combo) [code = CT Medical C enter Colonography (combo)] Future Scheduled [address] [facility] Test 00:00:00 malignant neoplasm of [facility] Center colon (procedure) [code = 593425489] Future Scheduled [address] [facility] Test 00:00:00 malignant neoplasm of [facility] Center colon (procedure) [code = 920655226] Future Scheduled 1956 DXA SCAN [code = DXA [facility] Test 00:00:00 SCAN] [facility] Future Scheduled [address] [facility] Test 00:00:00 malignant neoplasm of [facility] Center colon (procedure) [code = 474632170] Future Scheduled [address] [facility] Test 00:00:00 malignant neoplasm of [facility]ica [facility] Center colon (procedure) [code = 704281239] Future Scheduled 1956 [facility]igmoidoscopy [facility]code [facility] 00:[facility]] [facility] Future Scheduled [address] [facility] Test 00:00:00 malignant neoplasm of [facility]ica [facility] Center breast (procedure) [code = 038903650] Future Scheduled [address] [facility] Test 00:00:00 (combo) [code = CT Medical C enter Colonography (combo)] Future Scheduled [address] [facility] Test 00:00:00 malignant neoplasm of [facility] Center colon (procedure) [code = 515725105] Future Scheduled [address] [facility] Test 00:00:00 malignant neoplasm of [facility]ica [facility] Center colon (procedure) [code = 080971056] Future Scheduled 1956 DXA SCAN [code = DXA [facility] Test 00:00:00 SCAN] [facility] Future Scheduled [address] [facility] Test 00:00:00 malignant neoplasm of [facility]ica [facility] Center colon (procedure) [code = 184805666] Future Scheduled [address] [facility] Test 00:00:00 malignant neoplasm of Medica l Center colon (procedure) [code = 377568121] Future Scheduled 1956 Sigmoidoscopy [facility]code [facility] 00:[facility] S[facility]oscopy] [facility] Encounters Start End Encounter Admission Attending Care Care Encounter Source Date/Time Date/Time Type Type Clinicians Facility Department ID 2022-03-13 Inpatient EDDIE Adams [id number] [facility] 09:[facility]:[address] 2022-09-23 2022-09-27 [facility] 20 [id number] SLE 14:20:00 12:50:00 TRE 2022-09-23 2022-09-27 [facility] [id number] [facility] 14:20[facility] 12:50:00 Encounter Keith Mantilla [facility] 2022-09-23 2022-09-27 [facility] [id number] [facility] 14:20:00 12:50:00 Encounter Keith Mantilla Kit guillermina [facility] 2022-09-26 2022-09-26 Orders [facility] [id number] 00:00:00 00:00:00 [facility] 2022-09-26 2022-09-26 Orders [facility] [id number] 00:00:00 00:00:00 [facility] 2022-09-23 2022-09-23 Outpatient [facility] [id number] [facility] 00:00:00 23:59:00 Geeta 2022-09-23 2022-09-23 Orders [facility] [id number] 00:00:00 00:00:00 [facility] 2022-09-23 2022-09-23 Orders [facility] [id number] 00:00:00 00:00:00 [facility] 2022-08-26 2022-08-[address]1 [id number] [place] 00:00:00 00:00:00 Encounter KORINA 73971.1.1 [address] .3.771546 .8 2022-08-26 2022-08-26 Travel 1.2.840.1 1.2.889.559 8542 [id number] Methodi 00:00:00 00:00:[address] 3.430.2.7 0.2.7.3.698 Ho spita .3.575492 084.8 l .8 2022-08-22 2022-08-22 [facility], 1.2.840.1 [id number] 6104 Methodi 00:00:00 00:00:00 Only Mary 01307.1.[address] [place] 3.430.2.7 Hosp naye .3.704162 l .8 2022-08-11 2022-08-11 [facility], 1.2.840.1 [id number] 5999 Methodi 12:00:00 12:15:00 Visit Mary 84419.1.[address] Herbert 3.430.2.7 Hosp naye .3.229328 l .8 2022-08-11 2022-08-11 Travel 1.2.840.1 1.2.028.543 9906 910253 Methodi 00:00:00 00:00:[address] 3.430.2.7 0.2.7.3.698 Ho spita .3.799909 084.8 l .8 2022-08-02 2022-08-02 Travel 1.2.840.1 1.2.802.884 6548 577782 Methodi 00:00:00 00:00:[address] 3.430.2.7 0.2.7.3.698 Ho spita .3.290334 084.8 l .8 2022-07-26 2022-07-26 [facility], 1.2.840.1 [id number] [place] 00:00:00 00:00:00 Encounter MARY 68818.1.1 [address]7 [address] .3.168987 .8 2022-07-26 2022-07-[address] [facility], 1.2.840.1 [id number] [place] 00:00:00 00:00:00 Encounter MARY 11227.1.1 [address] .3.100527 .8 2022-07-26 2022-07-26 [facility], 1.2.840.1 [id number] [place] 00:00:00 00:00:00 Encounter MARY 38291.1.1 [address] .3.254914 .8 2022-07-26 2022-07-26 Travel 1.2.840.1 1.2.868.903 8919 [id number] Methodi 00:00:00 00:00:[address] 3.430.2.7 0.2.7.3.698 Ho spita .3.665811 084.8 l .8 2022-07-11 2022-07-11 Office Jose Rafaelaniketfalguni, 1.2.840.1 [id number] 1533 Methodi 14:15:00 14:15:00 Visit Mary 72148.1.[address] 3.430.2.7 Hospit a .3.810748 l .8 2022-07-11 2022-07-11 Travel 1.2.840.1 1.2.741.183 9137 565841 Methodi 00:00:00 00:00:[address] 3.430.2.7 0.2.7.3.698 Ho spita .3.312091 084.8 l .8 2022-07-04 2022-07-04 Office [place], 1.2.840.1 [id number] 0774 Methodi 12:45:00 13:22:26 Visit Mary 78306.1.[address] [place] 3.430.2.7 Hosp naye .3.106087 l .8 2022-07-03 2022-07-03 Travel 1.2.840.1 1.2.855.965 5900 378167 Methodi 00:00:00 00:00:[address] 3.430.2.7 0.2.7.3.698 Ho spita .3.091014 084.8 l .8 2022-06-24 2022-06-28 [facility] 1.2.840.1 [id number] Methodi 07:21:00 20:54:00 Encounter Maddison Wharton 68776.1.[address] 3.430.2.7 Hospit a .3.033910 l .8 2022-06-27 2022-06-27 Prep for Nehemiah, 1.2.840.1 [id number] 76314 20259 Methodi 00:00:00 00:00:00 Surgery Taylor Gaviria 94071.1.1 [address] t 3.430.2.7 Hospit a .3.292762 l .8 2022-06-24 2022-06-24 Travel 1.2.840.1 1.2.838.830 7501 797449 Methodi 00:00:00 00:00:[address] 3.430.2.7 0.2.7.3.698 Ho spita .3.081076 084.8 l .8 2022-06-14 2022-06-14 Outpatient LEONEL Conteh [id number] [facility] 04:58:00 04:58:00 Quentin 89 [facility] 2022-06-07 2022-06-07 Outpatient LEONEL Conteh [id number] [facility] 06:37:00 06:37:00 Quentin 64 [facility] 2022-05-20 2022-05-20 [facility] [id number] 00:00[facility]00 00:00:00 [facility] 2022-05-20 2022-05-20 Lab [facility] [id number] 00:00:00 00:00:00 Requisitio Radha [facility] 2022-05-04 2022-05-04 Outpatient Armstrong_B [facility] 476 [id number] [place] 00:00:00 00:00:00 [address] 2022-04-28 2022-04-29 Emergency Taylor Woodall 1.2.840 .1 [id number] Methodi 02:04:00 18:01:00 Diab Laura 31467.1.[address] [facility], [place] .3.568991 l .8 2022-04-28 2022-04-28 Travel 1.2.840.1 1.2.096.637 2508 [id number] Methodi 00:00:00 00:00:[address] 3.430.2.7 0.2.7.3.698 Ho spita .3.943773 084.8 l .8 2022-04-19 2022-04-20 Outpatient nullFlavo [facility] 3 [id number] Memoria 21:20:00 04:59:59 r Medicine 56 l Carrillo Zhang n 2022-04-19 2022-04-20 Outpatient nullFlavo [facility] 3 [id number] Memoria 21:20:00 04:59:59 r Medicine 56 l Carrillo Zhang n 2022-04-19 2022-04-19 Outpatient Carrillo, [facility] MG [id number] 16:20:00 23:59:59 Antonella N 56 2022-04-19 2022-04-19 Outpatient MHIE MHIE [id number] Memoria 16:20:00 16:20:00 57 l Denis 2022-04-16 2022-04-16 Emergency Avis, 1.2.840.1 [id number] Methodi 17:10:00 22:30:[address] [place] 3.430.2.7 Hosp naye .3.444441 l .8 2022-04-16 2022-04-16 Travel 1.2.840.1 1.2.503.093 4433 088334 Methodi 00:00:00 00:00:[address] 3.430.2.7 0.2.7.3.698 Ho spita .3.843670 084.8 l .8 2022-04-06 2022-04-15 Hospital Travon Porras . 1.2.840.1 104 [id number] Methodi 21:20:00 13:07:00 Encounter Shaikh Gutierrez 02708.1.[address] Jena Coolyan 3.430.2.7 Hospita Radu Puneet Hamzah .3.052889 l .8 2022-04-13 2022-04-13 Anesthesia Claudio, 1.2.840.1 [id number] Methodi 13:41:00 14:30:00 Event Greg 63234.1.[address] Pauline 3.430.2.7 Hospit a .3.477167 l .8 2022-04-06 2022-04-06 Travel 1.2.840.1 1.2.986.817 3430 885502 Methodi 00:00:00 00:00:[address] 3.430.2.7 0.2.7.3.698 Ho spita .3.061484 084.8 l .8 2022-03-08 2022-03-08 Outpatient Mic Warren HCAPM DAYS [id number] [facility] 07:07:00 07:07:[address] [facility] 2022-03-08 2022-03-08 Outpatient Mic Warren [facility] HCAPM F94 [id number] [facility] 07:07:00 07:07:00 [facility] 2022-03-06 2022-03-08 [facility] Osiqmn 4044 [id number] Memoria 15:25:04 04:59:59 Message r Medicine 17 l Carrillo davis 2022-03-06 2022-03-08 Phone nullFlavo [facility] Family 3467 [id number] Memoria 15:25:04 04:59:59 Message r Medicine 17 l Carrillo Zhang n 2022-03-06 2022-03-07 Outpatient [facility] MG [id number] 10:25:04 23:59:59 17 2022-03-03 2022-03-03 Emergency EM Chris Carter HCAPM POLLO LA00 [id number] [facility] 12:08:00 15:51:[address] [facility] 2022-03-03 2022-03-03 Emergency EM Chris Carter HCAPM HCAPM F945 [facility] 12:08:00 15:51:00 [facility] 2022-02-27 2022-02-27 Outpatient HARJEET King, HCAPM ENDO [id number] [facility] 07:10:00 07:10:[address] [facility] 2022-01-18 2022-01-18 Ambulatory nullFlavo [facility] Family 3 [id number] Memoria 15:15:00 15:15:00 Pre-Reg r Medicine 54 l Carrillo davis 2022-01-18 2022-01-18 Ambulatory nullFlavo [facility] Family 3 [id number] Memoria 15:15:00 15:15:00 Pre-Reg r Medicine 54 l Carrillo Zhang n 2022-01-18 2022-01-18 Outpatient MHIE MHIE [id number] Memoria 10:15:00 10:15:00 55 leonard RameyDenis 2022-01-18 2022-01-18 Outpatient Carrillo, MG MG [id number] 10:15:00 10:15:00 Antonella Davis 54 2022-01-16 2022-01-16 Outpatient MHIE MHIE [id number] Memoria 10:30:00 10:30:00 56 leonard Barrios 2022-01-16 2022-01-16 Outpatient MHIE MHIE [id number] [facility]oria 10:30:00 10:30:00 56 leonard Barrios 2022-01-05 2022-01-05 Patient Ras Phuong 1.2.840.1 [id number] Methodi 00:00:00 00:00:[address] 3.430.2.7 Hospit a .3.952102 l .8 2021-12-30 2021-12-30 Office Ekerfalguni, 1.2.840.1 [id number] 7083 Methodi 10:15:00 11:21:59 Visit Mary 66151.1.[address] 3.430.2.7 Hospit a .3.873298 l .8 2021-12-30 2021-12-30 Travel 1.2.840.1 1.2.431.288 3113 474097 Methodi 00:00:00 00:00:[address] 3.430.2.7 0.2.7.3.698 Ho spita .3.242461 084.8 l .8 2021-12-19 2021-12-28 [facility] Dean 1.2.840.1 1 [id number] Methodi 12:16:00 16:05:00 Encounter BrielleMichelle blackburn Turner Magalys 15416.1.[address] 3.430.2.7 Hospit a .3.208527 l .8 2021-12-27 2021-12-27 Anesthesia Robert Young 1.2.8 40.1 [id number] Methodi 13:07:00 14:43:00 Event Nishi Shelton 10027.1.[address] 3.430.2.7 Hospit a .3.497096 l .8 2021-12-26 2021-12-26 Telephone Ekandrews, 1.2.840.1 [id number] 2100 [id number] Methodi 00:00:00 00:00:[address] 3.430.2.7 Hospit a .3.604335 l .8 2021-12-19 2021-12-21 Phone [facility] 2900 [id number] Memmerrill 17:07:02 05:59:59 Message r Medicine 16 l Carrillo davis 2021-12-19 2021-12-21 Phone nullFlavo [facility] Family 346Mariana [id number] Memoria 17:07:02 05:59:59 Message r Medicine 16 leonard Zhang n 2021-12-19 2021-12-20 Outpatient [facility] [id number] 11:07:02 23:59:59 16 2021-12-19 2021-12-19 Travel 1.2.840.1 1.2.212.479 2661 [id number] Methodi 00:00:00 00:00:[address] 3.430.2.7 0.2.7.3.698 Ho spita .3.018406 084.8 l .8 2021-11-15 2021-11-15 Office [facility], 1.2.840.1 [id number] 3579 Methodi 16:30:00 16:34:07 Visit Scott 78061.1.[address] 3.430.2.7 Hospit a .3.522394 l .8 2021-11-14 2021-11-14 [facility], 1.2.840.1 [id number] 28352 Methodi 09:45:00 23:59:00 Encounter Scott 55314.1.[address] 3.430.2.7 Hospit a .3.423912 l .8 2021-11-14 2021-11-14 Travel 1.2.840.1 1.2.793.322 0241 881992 Methodi 00:00:00 00:00:[address] 3.430.2.7 0.2.7.3.698 Ho spita .3.022374 084.8 l .8 2021-10-28 2021-10-30 Phone nullFlavo [facility] Family 3467 [id number] Memoria 19:33:53 05:59:59 Message r Medicine 15 leonard davis 2021-10-28 2021-10-30 Phone nullFlavo [facility] Family Roge7 [id number] Memoria 19:33:53 05:59:59 Message r Medicine 15 leonard Zhang n 2021-10-28 2021-10-29 Outpatient MHMG MHMG [id number] 13:33:53 23:59:59 15 2021-10-19 2021-10-21 Phone nullFlavo [facility] Family 3467 [id number] Memoria 19:38:03 05:59:59 Message r Medicine 14 leonard Zhang n 2021-10-19 2021-10-21 Phone nullFlavo [facility] 3467 [id number] Memoria 19:38:03 05:59:59 Message r Medicine 14 leonard Zhang n 2021-10-19 2021-10-20 Outpatient MHMG MHMG [id number] 13:38:03 23:59:59 14 2021-10-17 2021-10-18 Outpatient nullFlavo [facility] 3 [id number] Memoria 21:15:00 05:59:59 r Medicine 53 l Carrillo Zhang n 2021-10-17 2021-10-18 Outpatient nullFlavo [facility] 3 [id number] Memoria 21:15:00 05:59:59 r Medicine 53 leonard Zhang n 2021-10-17 2021-10-17 Outpatient Carrillo, MHMG MHMG [id number] 15:15:00 23:59:59 Antonella Davis 53 2021-10-17 2021-10-17 Outpatient MHIE MHIE [id number] Memoria 15:15:00 15:15:00 54 leonard Barrios 2021-09-20 2021-09-20 Office Ahmed, 1.2.840.1 [id number] Methodi 15:30:00 16:01:04 Visit Scott 32768.1.[address] 3.430.2.7 Hospit a .3.969042 l .8 2021-09-20 2021-09-20 Travel 1.2.840.1 1.2.459.354 7902 [id number] Methodi 00:00:00 00:00:[address] 3.430.2.7 0.2.7.3.698 Ho spita .3.102893 084.8 l .8 2021-09-12 2021-09-13 Between nullFlavo [facility] 3467 [id number] Memoria 14:18:24 14:18:24 Visit r Medicine 62 l Vizcaino Vicente davis 2021-09-12 2021-09-13 Between nullFlavo [facility] 3467 [id number] Memoria 14:18:24 14:18:24 Visit r Medicine 62 l Carrillo davis 2021-09-12 2021-09-13 Outpatient MHMG MG [id number] 08:18:24 08:18:24 62 2021-09-12 2021-09-13 Between nullFlavo [facility] Family 3467 [id number] Memoria 00:56:47 00:56:47 Visit r Medicine 61 l Vizcaino Vicente davis 2021-09-12 2021-09-13 Between nullFlavo [facility] 3467 [id number] Memoria 00:56:47 00:56:47 Visit r Medicine 61 l Carrillo davis 2021-09-11 2021-09-12 Outpatient MHMG [facility] [id number] 18:56:47 18:56:47 61 2021-09-09 2021-09-10 Outpatient nullFlavo [facility] Family 3 [id number] Memoria 20:00:00 05:59:59 r Medicine 52 l Carrillo davis 2021-09-09 2021-09-10 Outpatient nullFlavo [facility] Family 3 [id number] Memoria 20:00:00 05:59:59 r Medicine 52 leonard davis 2021-09-09 2021-09-09 Outpatient Carrillo, MG [facility] [id number] 14:00:00 23:59:59 Antonella Davis 52 2021-09-09 2021-09-09 [facility] [id number] Memoria 14:00:00 14:00:00 52 leonard Barrios 2021-09-06 2021-09-08 Phone nullFlavo [facility] 3467 [id number] Memoria 21:38:38 05:59:59 Message r Medicine 13 leonard davis 2021-09-06 2021-09-08 Phone nullFlavo [facility] Family 3467 [id number] Memoria 21:38:38 05:59:59 Message r Medicine 13 l Carrillo Zhang n 2021-09-06 2021-09-07 Outpatient [facility] [id number] 15:38:38 23:59:59 13 2021-09-07 2021-09-07 Office Bam, 1.2.840.1 [id number] 6903 Methodi 11:00:00 11:44:58 Visit Mary 84768.1.[address] 3.430.2.7 Hospit a .3.316884 l .8 2021-09-07 2021-09-07 Travel 1.2.840.1 1.2.441.377 4445 [id number] Methodi 00:00:00 00:00:[address] 3.430.2.7 0.2.7.3.698 Ho spita .3.821044 084.8 l .8 2021-09-05 2021-09-06 Between nullFlavo [facility] Family 3467 [id number] Memoria 15:33:59 15:33:59 Visit r Medicine 59 l Carrillo Zhang ryan 2021-09-05 2021-09-06 Between nullFlavo [facility] Family 3467 [id number] Memoria 15:33:59 15:33:59 Visit r Medicine 59 l Carrillo Zahng ryan 2021-09-05 2021-09-06 Outpatient [facility] [id number] 09:33:59 09:33:59 59 2021-07-14 2021-07-26 Inpatient CHICO, [facility] [id number] [place] 00:00:00 00:00:00 MICHELLE [address] 2021-07-19 2021-07-19 Outpatient GC_EAH_Brow PRIV PRIV 140 [id number] [facility] 00:00:00 00:00:00 n_J [id number] Medica l 2021-07-13 2021-07-13 Outpatient MARITA [facility] [id number] [place] 00:00:00 00:00:00 KRISTIAN [address] 2021-06-30 2021-06-30 Outpatient ADRIANA [facility] [id number] [place] 00:00:00 00:00:00 RAZIUDDIN 273 Meth aiden 2021-06-07 2021-06-07 Outpatient EKERUO, [facility] [id number] [place] 00:00:00 00:00:00 MARY 787 Method i 2021-06-07 2021-06-07 Outpatient DAOURA, [facility] [id number] [place] 00:00:00 00:00:00 NILESH 546 Method i 2021-05-19 2021-05-26 Inpatient MATHIVANAN, [facility] 064 [id number] [place] 00:00:00 00:00:00 COURTNEY 275 Method i 2021-05-12 2021-05-12 Outpatient AHMED, [facility] [id number] [place] 00:00:00 00:00:00 RAZIUDDIN 199 Meth aiden 2021-05-11 2021-05-11 Outpatient EKERUO, [facility] 905 [id number] [place] 00:00:00 00:00:00 MARY 640 Method i 2021-05-06 2021-05-06 Outpatient EKERUO, [facility] [id number] [place] 00:00:00 00:00:00 MARY 435 Method i 2021-05-06 2021-05-06 Outpatient EKERUO, [facility] [id number] [place] 00:00:00 00:00:00 MARY 537 Method i 2021-05-03 2021-05-03 Outpatient EKERUO, [facility] [id number] [place] 00:00:00 00:00:00 MARY 709 Method i 2021-04-08 2021-04-21 Inpatient SOLIPURAM, [facility] 064 [id number] [place] 00:00:00 00:00:00 MICHELLE 685 Method i 2021-03-09 2021-03-09 Outpatient AHMED, [facility] [id number] [place] 00:00:00 00:00:00 RAZIUDDIN 101 Meth aiden 2021-02-24 2021-02-24 Outpatient nullFlavo [facility] [id number] Memoria 01:00:00 04:59:00 r Denis 58 l Clifton Karen 2021-02-24 2021-02-24 Outpatient nullFlavo [facility] 3467 [id number] [facility]oria 01:00:00 04:59:00 r Denis 58 l Clifton Karen nn 2021-02-23 2021-02-23 Outpatient Ahmed, [facility]SL MHSL [id number] 20:00:00 23:59:00 Raziuddin 58 2021-02-23 2021-02-23 Outpatient AHMED, [facility] PUL 7558 [facility] 20:00:00 23:59:00 RAZIUDDIN 2021-02-10 2021-02-10 Outpatient AHMED, [facility] [id number] [place] 00:00:00 00:00:00 RAZ[address]IN [address] 2021-02-03 2021-02-08 Inpatient MARY ALICE, [facility] [id number] [place] 00:00:00 00:00:00 COURTNEY [address] 2021-01-20 2021-01-20 Outpatient [facility] [id number] [place] 00:00:00 00:00:[address] 2021-01-18 2021-01-19 Outpatient nullFlavo [facility] 3 [id number] [facility] 19:30:00 04:59:59 r Medicine 51 l Carrillo Zhang n 2021-01-18 2021-01-19 Outpatient nullFlavo [facility] 3 [id number] [facility] 19:30:00 04:59:59 r Medicine 51 l Carrillo Zhang n 2021-01-18 2021-01-18 Outpatient Carrillo, MG MG [id number] 14:30:00 23:59:59 Antonella Davis 51 2021-01-18 2021-01-18 Outpatient MHIE IE [id number] [place] 14:30:00 14:30:00 51 l Denis 2021-01-18 2021-01-18 Outpatient [facility] [id number] [address] [place] [id number] 00:00:00 00:00:[address] 2021-01-14 2021-01-15 Between nullFlavo [facility] [id number] [facility] 13:38:03 13:38:03 Visit r Medicine 57 l Carrillo Zhang n 2021-01-14 2021-01-15 Between nullFlavo [facility] [id number] [facility] 13:38:03 13:38:03 Visit r Medicine 57 l Carrillo Zhang n 2021-01-14 2021-01-15 Outpatient [facility] MH[facility] [id number] 08:38:03 08:38:03 57 2021-01-12 2021-01-12 Outpatient JOSÉ LUISMED, [facility] [id number] [place] 00:00:00 00:00:00 RAZIUDDIN [address] 2020-12-31 2021-01-05 Inpatient MARY ALICE [facility] [id number] [place] 00:00:00 00:00:00 COURTNEY [address] 2020-12-17 2020-12-28 Inpatient MARY ALICE [facility] Vidya [id number] [place] 00:00:00 00:00:00 COURTNEY [address] 2020-10-11 2020-10-18 Inpatient MARY ALICE [facility] [id number] [place] 00:00:00 00:00:00 COURTNEY [address] 2020-09-15 2020-09-16 Outpatient nullFlavo [facility] Family 3 [id number] [facility] 16:30:00 05:59:59 r Medicine 50 l Carrillo Zhang n 2020-09-15 2020-09-16 Outpatient nullFlavo [facility] Family 3 [id number] [facility] 16:30:00 05:59:59 r Medicine 50 l Carrillo Zhang n 2020-09-15 2020-09-15 Outpatient Carrillo, [facility] MG [id number] 10:30:00 23:59:59 Antonella N 50 2020-09-15 2020-09-15 Outpatient MHIE IE [id number] [place] 10:30:00 10:30:00 50 l Denis 2020 2020-09-07 Inpatient SOLIPURAM, [facility] [id number] [place] 00:00:00 00:00:00 MICHELLE [address] 2020-08-13 2020-09-01 Inpatient SOLIPURAM, [facility] [id number] [place] 00:00:00 00:00:00 MICHELLE [address] 2020-08-13 2020-08-14 Outpt Diag nullFlavo [facility] [address] [id number] [place] 18:10:00 04:59:00 Services r Outpatient 06 l Imaging Denis Clifton 2020-08-13 2020-08-14 Outpt Diag nullFlavo [facility] [address] [id number] [place] 18:10:00 04:59:00 Services r Outpatient 06 l Imaging Denis Clifton 2020-08-13 2020-08-13 Outpatient Amilcar, MH29 [id number] 13:10:00 23:59:00 Tyrell Davis 06 2020-08-11 2020-08-12 Between nullFlavo [facility] Family [id number] Memoria 17:58:19 17:58:19 Visit r Medicine 56 l Carrillo Zhang n 2020-08-11 2020-08-12 Between nullFlavo [facility] Family [id number] Memoria 17:58:19 17:58:19 Visit r Medicine 56 l Carrillo Zhang n 2020-08-11 2020-08-12 Outpatient MH[facility] [id number] 12:58:19 12:58:19 56 2020-08-03 2020-08-04 Outpatient nullFlavo MG Family 3 [id number] Memoria 15:15:00 04:59:59 r Medicine 49 l Carrillo Zhang n 2020-08-03 2020-08-04 Outpatient nullFlavo MG Family 3 [id number] Memoria 15:15:00 04:59:59 r Medicine 49 l Carrillo Zhang ryan 2020-08-03 2020-08-03 Outpatient Carrillo, MG [facility] [id number] 10:15:00 23:59:59 Antonella Davis 49 2020-08-03 2020-08-03 Outpatient [facility] [id number] Memoria 10:15:00 10:15:00 49 l Denis 2020-06-22 2020-06-23 Outpt Diag nullFlavo [facility] [address] [id number] Memoria 17:02:00 04:59:00 Services r Outpatient 05 l Imaging Denis Clifton 2020-06-22 2020-06-23 Outpt Diag nullFlavo [facility] [address] [id number] Memoria 17:02:00 04:59:00 Services r Outpatient 05 l Imaging Denis Clifton 2020-06-22 2020-06-22 Outpatient Amilcar MH29 [id number] 12:02:00 23:59:00 Tyrell Davis 05 2020-06-17 2020-06-17 Ambulatory nullFlavo [facility] [id number] Memoria 19:00:00 19:00:00 Pre-Reg r Nephrology 46 l Carrillo davis 2020-06-17 2020-06-17 Ambulatory nullFlavo [facility] [id number] Memoria 19:00:00 19:00:00 Pre-Reg r Nephrology 46 l Carrillo davis 2020-06-17 2020-06-17 Outpatient IE IE [id number] Memoria 14:00:00 14:00:00 47 leonard [place] 2020-06-17 2020-06-17 Outpatient [facility] [id number] 14:00:00 14:00:00 Daca, 46 Valarie Carballo 2020-06-10 2020-06-10 Outpatient IE IE [id number] Memoria 11:15:00 11:15:00 47 leonard [place] 2020-06-10 2020-06-10 Outpatient IE IE [id number] Memoria 11:15:00 11:15:00 47 leonard [place] 2020-06-02 2020-06-03 Outpatient nullFlavo [facility] [id number] Memoria 19:45:00 04:59:59 r Nephrology 48 l Carrillo davis 2020-06-02 2020-06-03 Outpatient nullFlavo [facility] [id number] Memoria 19:45:00 04:59:59 r Nephrology 48 l Carrillo davis 2020-06-02 2020-06-02 Outpatient [facility] [id number] 14:45:00 23:59:59 Dacmoira 48 Valarie Carballo 2020-06-02 2020-06-02 Outpatient IE IE [id number] Memoria 14:45:00 14:45:00 49 leonard Denis 2020-05-20 2020-05-20 [facility] [id number] [address] [place] [address] 00:00:00 00:00:[address] [place] 2020-03-23 2020-03-25 Phone nullFlavo [facility] [id number] Memoria 16:17:50 04:59:59 Message r Nephrology 12 l Carrillo Zhang ryan 2020-03-23 2020-03-25 Phone nullFlavo [facility] [id number] Memoria 16:17:50 04:59:59 Message r Nephrology 12 leonard Zhang n 2020-03-23 2020-03-24 Outpatient [facility]MG MG [id number] 11:17:50 23:59:59 12 2020-03-18 2020-03-19 [place] [id number] Memoria 19:00:00 04:59:59 r Nephrology 41 l Carrillo Zhang n 2020-03-18 2020-03-19 [place] [id number] Memoria 19:00:00 04:59:59 r Nephrology 41 l Carrillo Zhang n 2020-03-18 2020-03-18 Outpatient [place]- MG MG [id number] 14:00:00 23:59:59 Daca, 41 Valarie Haris 2020-03-18 2020-03-18 [facility] [id number] Memoria 14:00:00 14:00:00 41 leonard Denis 2020-03-08 2020-03-10 Phone nullFlavo MG [id number] Memoria 18:35:51 04:59:59 Message r Nephrology 11 leonard Barrios 2020-03-08 2020-03-10 Phone nullFlavo MG [id number] Memoria 18:35:51 04:59:59 Message r Nephrology 11 leonard Barrios 2020-03-08 2020-03-09 Outpatient MG MG [id number] 13:35:51 23:59:59 11 2020-02-11 2020-02-12 Outpatient nullFlavo MG Family 3 [id number] Memoria 15:15:00 04:59:59 r Medicine 45 l Carrillo Zhang n 2020-02-11 2020-02-12 Outpatient nullFlavo MG Family 3 [id number] Memoria 15:15:00 04:59:59 r Medicine 45 l Carrillo Zhang n 2020-02-11 2020-02-11 Outpatient Carrillo, MG MG [id number] 10:15:00 23:59:59 Antonella Davis 45 2020-02-11 2020-02-11 Ambulatory nullFlavo [facility] Family 3 [id number] Memoria 15:15:00 15:15:00 Pre-Reg r Medicine 44 l Vizcaino Vicente n 2020-02-11 2020-02-11 Ambulatory nullFlavo MG Family 3 [id number] Memoria 15:15:00 15:15:00 Pre-Reg r Medicine 44 l Carrillo Zhang ryan 2020-02-11 2020-02-11 Outpatient MHIE IE [id number] Memoria 10:15:00 10:15:00 46 leonard Denis 2020-02-11 2020-02-11 Outpatient MHIE IE [id number] Memoria 10:15:00 10:15:00 45 leonard Denis 2020-02-11 2020-02-11 Outpatient Carrillo, MG MG [id number] 10:15:00 10:15:00 Antonella N 44 2020-02-05 2020-02-07 Phone nullFlavo MG [id number] Memoria 13:23:32 04:59:59 Message r Nephrology 10 leonard Zhang ryan 2020-02-05 2020-02-07 Phone nullFlavo MG [id number] Memoria 13:23:32 04:59:59 Message r Nephrology 10 leonard Vizcaino Vicente davis 2020-02-05 2020-02-06 Outpatient MG MG [id number] 08:23:32 23:59:59 10 2020-02-05 2020-02-06 Between nullFlavo [facility] Family [id number] Memoria 14:14:54 14:14:54 Visit r Medicine 52 l Carrillo Vicente davis 2020-02-05 2020-02-06 Between nullFlavo [facility] Family [id number] Memoria 14:14:54 14:14:54 Visit r Medicine 52 l Vizcaino Vicente davis 2020-02-05 2020-02-06 Outpatient MG MG [id number] 09:14:54 09:14:54 52 2020-02-05 2020-02-05 Outpatient MHIE IE [id number] Memoria 11:30:00 11:30:00 44 leonard Barrios 2020-02-05 2020-02-05 Outpatient MHIE IE [id number] Memoria 11:30:00 11:30:00 43 leonard Barrios 2020-02-02 2020-02-04 Phone nullFlavo [facility] Family [id number] Memoria 20:00:15 04:59:59 Message r Medicine 09 l Carrillo Vicente davis 2020-02-02 2020-02-04 Phone nullFlavo MG Family [id number] Memoria 20:00:15 04:59:59 Message r Medicine 09 leonard Zhang n 2020-02-02 2020-02-03 Outpatient MHMG MHMG [id number] 15:00:15 23:59:59 09 2020-01-30 2020-02-01 Phone nullFlavo MG Family [id number] Memoria 17:18:28 04:59:59 Message r Medicine 08 leonard Zhang n 2020-01-30 2020-02-01 Phone nullFlavo MG Family [id number] Memoria 17:18:28 04:59:59 Message r Medicine 08 leonard Zhang ryan 2020-01-30 2020-02-01 Phone nullFlavo MG [id number] Memoria 13:26:55 04:59:59 Message r Nephrology 07 leonard Zhang ryan 2020-01-30 2020-02-01 Phone nullFlavo MG [id number] Memoria 13:26:55 04:59:59 Message r Nephrology 07 leonard Zhang ryan 2020-01-30 2020-01-31 Outpatient MHMG MHMG [id number] 12:18:28 23:59:59 08 2020-01-30 2020-01-31 Outpatient MHMG MHMG [id number] 08:26:55 23:59:59 07 2019-12-16 2019-12-17 Outpatient nullFlavo MG Family 3 [id number] Memoria 20:15:00 05:59:59 r Medicine 42 l Carrillo davis 2019-12-16 2019-12-17 Outpatient nullFlavo MG Family 3 [id number] Memoria 20:15:00 05:59:59 r Medicine 42 l Carrillo davis 2019-12-16 2019-12-16 Outpatient Carrillo, MHMG MHMG [id number] 14:15:00 23:59:59 Antonella Davis 42 2019-12-16 2019-12-16 Outpatient MHIE MHIE [id number] Memoria 14:15:00 14:15:00 Satinder Barrios 2019-11-13 2019-11-15 Phone nullFlavo [facility] Family [id number] Memoria 14:22:27 05:59:59 Message r Medicine 06 l Carrillo Rameycora davis 2019-11-13 2019-11-15 Phone nullFlavo MG Family [id number] Memoria 14:22:27 05:59:59 Message r Medicine 06 leonard davis 2019-11-13 2019-11-14 Outpatient MHMG MG [id number] 08:22:27 23:59:59 06 2019-10-17 2019-10-19 Phone nullFlavo MG Family [id number] Memoria 16:06:04 05:59:59 Message r Medicine 05 leonard davis 2019-10-17 2019-10-19 Phone nullFlavo MG Family [id number] Memoria 16:06:04 05:59:59 Message r Medicine 05 leonard davis 2019-10-17 2019-10-18 Outpatient MHMG [facility] [id number] 10:06:04 23:59:59 05 2019-10-02 2019-10-03 Between nullFlavo MG [id number] Memoria 20:05:03 20:05:03 Visit r Nephrology 45 leonard Barrios 2019-10-02 2019-10-03 Between nullFlavo MG [id number] Memoria 20:05:03 20:05:03 Visit r Nephrology 45 leonard Barrios 2019-10-02 2019-10-03 Outpatient MHMG [facility] [id number] 14:05:03 14:05:03 45 2019-10-02 2019-10-03 [place] [id number] Memoria 20:45:00 05:59:59 r Nephrology 38 leonard Zhang ryan 2019-10-02 2019-10-03 [place] [id number] Memoria 20:45:00 05:59:59 r Nephrology 38 leonard Zhang ryan 2019-10-02 2019-10-02 Outpatient Amand[place]- MG MG [id number] 14:45:00 23:59:59 Noel Toledo 2019-10-02 2019-10-02 Outpatient MHIE [facility] [id number] Memoria 14:45:00 14:45:00 38 leonard Barrios 2019-09-26 2019-09-27 Between nullFlavo MG [id number] Memoria 00:07:10 00:07:10 Visit r Nephrology 43 leonard Barrios 2019-09-26 2019-09-27 Between nullFlavo MG [id number] Memoria 00:07:10 00:07:10 Visit r Nephrology 43 leonard Barrios 2019-09-25 2019-09-26 Outpatient MG MG [id number] 18:07:10 18:07:10 43 2019-09-25 2019-09-25 Outpatient IE IE [id number] Memoria 09:00:00 09:00:00 39 leonard Barrios 2019-09-25 2019-09-25 Outpatient MHIE IE [id number] Memoria 09:00:00 09:00:00 39 leonard Barrios 2019-09-16 2019-09-17 Between nullFlavo MG Family [id number] Memoria 21:47:12 21:47:12 Visit r Medicine 41 leonard Zhang ryan 2019-09-16 2019-09-17 Between nullFlavo MG Family [id number] Memoria 21:47:12 21:47:12 Visit r Medicine 41 leonard Zhang ryan 2019-09-16 2019-09-17 Outpatient [facility] [id number] 15:47:12 15:47:12 41 2019-08-19 2019-08-20 Between nullFlavo MG Family [id number] Memoria 22:13:13 22:13:13 Visit r Medicine 40 leonard Zhang ryan 2019-08-19 2019-08-20 Between nullFlavo MG Family [id number] Memoria 22:13:13 22:13:13 Visit r Medicine 40 leonard Zhang ryan 2019-08-19 2019-08-20 Outpatient MG MG [id number] 17:13:13 17:13:13 40 2019-08-15 2019-08-16 Outpatient nullFlavo MG Family 3 [id number] Memoria 14:45:00 04:59:59 r Medicine 40 leonard Zhang ryan 2019-08-15 2019-08-16 Outpatient nullFlavo MG Family 3 [id number] Memoria 14:45:00 04:59:59 r Medicine 40 leonard Vizcaino Vicente davis 2019-08-15 2019-08-15 Outpatient Carrillo, MG [facility] [id number] 09:45:00 23:59:59 Antonella N 40 2019-08-15 2019-08-15 Outpatient MHIE MHIE [id number] Memoria 09:45:00 09:45:00 40 leonard Denis 2019-08-07 2019-08-07 Ambulatory nullFlavo MG Family 3 [id number] Memoria 16:00:00 16:00:00 Pre-Reg r Medicine 36 leonard Zhang n 2019-08-07 2019-08-07 Ambulatory nullFlavo MG Family 3 [id number] Memoria 16:00:00 16:00:00 Pre-Reg r Medicine 36 leonard Zhang n 2019-08-07 2019-08-07 Outpatient MHIE MHIE [id number] Memoria 11:00:00 11:00:00 36 leonard Denis 2019-08-07 2019-08-07 Outpatient Carrillo, MG MG [id number] 11:00:00 11:00:00 Antonella N 36 2019-07-31 2019-08-01 [place] [id number] Memoria 15:00:00 04:59:59 r Nephrology 35 leonard Zhang n 2019-07-31 2019-08-01 [place] [id number] Memoria 15:00:00 04:59:59 r Nephrology 35 leonard Zhang n 2019-07-31 2019-07-31 Outpatient Carrillo, MG MG [id number] 10:00:00 23:59:59 Antonella N 35 2019-07-31 2019-07-31 Outpatient MHIE IE [id number] Memoria 12:00:00 12:00:00 37 leonard Denis 2019-07-31 2019-07-31 Outpatient MHIE MHIE [id number] Memoria 12:00:00 12:00:00 37 leonard Denis 2019-07-31 2019-07-31 Outpatient MHIE MHIE [id number] Memoria 10:00:00 10:00:00 35 leonard Denis 2019-07-03 2019-07-05 Phone nullFlavo MG Family [id number] Memoria 15:15:06 04:59:59 Message r Medicine 04 leonard Zhang n 2019-07-03 2019-07-05 Phone nullFlavo [facility] [id number] Memoria 15:15:06 04:59:59 Message r Medicine 04 leonadr davis 2019-07-03 2019-07-05 Phone nullFlavo MG [id number] Memoria 15:10:51 04:59:59 Message r Nephrology 03 leonard davis 2019-07-03 2019-07-05 Phone nullFlavo MG [id number] Memoria 15:10:51 04:59:59 Message r Nephrology 03 leonard davis 2019-07-03 2019-07-04 Outpatient MG MG [id number] 10:15:06 23:59:59 04 2019-07-03 2019-07-04 Outpatient MG MG [id number] 10:10:51 23:59:59 03 2019-07-03 2019-07-03 [place] [id number] Memoria 20:00:00 20:00:00 Pre-Reg r Nephrology 34 leonard davis 2019-07-03 2019-07-03 [place] [id number] Memoria 20:00:00 20:00:00 Pre-Reg r Nephrology 34 leonard davis 2019-07-03 2019-07-03 Outpatient [facility] [id number] Memoria 15:00:00 15:00:00 34 leonard Barrios 2019-07-03 2019-07-03 Outpatient [place]- MG [facility] [id number] 15:00:00 15:00:00 Angela Toledo 2019-06-29 2019-06-30 Between nullFlavo MG [id number] Memoria 20:15:16 20:15:16 Visit r Nephrology 34 leonard Barrios 2019-06-29 2019-06-30 Between nullFlavo MG [id number] Memoria 20:15:16 20:15:16 Visit r Nephrology 34 leonard Barrios 2019-06-29 2019-06-30 Outpatient MG MG [id number] 15:15:16 15:15:16 34 2019-06-11 2019-06-13 Phone nullFlavo MG [id number] Memoria 15:29:54 04:59:59 Message r Nephrology 02 leonard Barrios 2019-06-11 2019-06-13 Phone nullFlavo MG [id number] Memoria 15:29:54 04:59:59 Message r Nephrology 02 leonard Barrios 2019-06-11 2019-06-12 Outpatient MHMG MHMG [id number] 10:29:54 23:59:59 02 2019-06-12 2019-06-12 [place] [id number] Memoria 16:30:00 16:30:00 Pre-Reg r Nephrology 29 leonard davis 2019-06-12 2019-06-12 [place] [id number] Memoria 16:30:00 16:30:00 Pre-Reg r Nephrology 29 leonard davis 2019-06-12 2019-06-12 [place] [id number] Memoria 16:15:00 16:15:00 Pre-Reg r Nephrology 30 leonard davis 2019-06-12 2019-06-12 [place] [id number] Memoria 16:15:00 16:15:00 Pre-Reg r Nephrology 30 leonard davis 2019-06-12 2019-06-12 Ambulatory nullFlavo [facility] Family 3 [id number] Memoria 15:15:00 15:15:00 Pre-Reg r Medicine 31 leonard davis 2019-06-12 2019-06-12 Ambulatory nullFlavo [facility] Family 3 [id number] Memoria 15:15:00 15:15:00 Pre-Reg r Medicine 31 leonard davis 2019-06-12 2019-06-12 Outpatient MHIE IE [id number] Memoria 11:30:00 11:30:00 29 leonard Barrios 2019-06-12 2019-06-12 Outpatient [place]- MHMG MG [id number] 11:30:00 11:30:00 Otis Toledo 2019-06-12 2019-06-12 Outpatient MHIE ADRIANIE [id number] Memoria 11:15:00 11:15:00 30 leonard Denis 2019-06-12 2019-06-12 Outpatient [place]- MHMG MG [id number] 11:15:00 11:15:00 Bob Toledo 2019-06-12 2019-06-12 Outpatient MHIE MHIE [id number] Memoria 10:15:00 10:15:00 31 leonard [place] 2019-06-12 2019-06-12 Outpatient Carrillo, MHMG MHMG [id number] 10:15:00 10:15:00 Antonella Davis 31 2019-06-09 2019-06-10 Inpatient Chelsea [place]AGAN, [facility] [id number] [place] 10:05:00 17:55:00 EUDIN [facility] 2019-05-12 2019-05-14 Outpatient Chelsea BARRAGAN, [facility] [id number] [place] 21:36:00 19:00:00 EDUIN [facility] 2019-05-12 2019-05-13 Outpatient nullFlavo [facility] Urgent [id number] Memoria 20:40:00 04:59:59 r Care 33 l [facility] 2019-05-12 2019-05-13 Outpatient nullFlavo MH Urgent [id number] Memoria 20:40:00 04:59:59 r Care 33 l Pratt [place] 2019-05-12 2019-05-12 Outpatient Van MHMG MHMG [id number] 15:40:00 23:59:59 Radha Gallardo Carlito chavez De 2019-05-12 2019-05-12 Outpatient MHIE MHIE [id number] Memoria 15:40:00 15:40:00 33 leonard Barrios 2019-03-27 2019-03-28 Outpatient nullFlavo [facility] Family 3 [id number] Memoria 15:15:00 04:59:59 r Medicine 32 l Carrillo davis 2019-03-27 2019-03-28 Outpatient nullFlavo [facility] Family 3 [id number] Memoria 15:15:00 04:59:59 r Medicine 32 l Carrillo davis 2019-03-27 2019-03-27 Outpatient [place]- MHMG MHMG [id number] 10:15:00 23:59:59 Philly Toledo 2019-03-27 2019-03-27 Outpatient MHIE MHIE [id number] Memoria 10:15:00 10:15:00 32 leonard Barrios 2019-01-05 2019-01-06 Between nullFlavo [facility] Family [id number] Memoria 19:00:16 19:00:16 Visit r Medicine 29 leonard Zhang n 2019-01-05 2019-01-06 Between nullFlavo MG Family [id number] Memoria 19:00:16 19:00:16 Visit r Medicine 29 leonard Zhang n 2019-01-05 2019-01-06 Outpatient MG MG [id number] 14:00:16 14:00:16 29 2019-01-02 2019-01-03 Between nullFlavo MG [id number] Memoria 15:02:37 15:02:37 Visit r Nephrology 27 leonard Zhang n 2019-01-02 2019-01-03 Between nullFlavo MG [id number] Memoria 15:02:37 15:02:37 Visit r Nephrology 27 leonard Zhang n 2019-01-02 2019-01-03 Outpatient MG MG [id number] 10:02:37 10:02:37 27 2019-01-02 2019-01-03 [place] [id number] Memoria 18:45:00 04:59:59 r Nephrology 28 leonard Zhang n 2019-01-02 2019-01-03 [place] [id number] Memoria 18:45:00 04:59:59 r Nephrology 28 leonard Zhang n 2019-01-02 2019-01-03 Outpatient nullFlavo MG Family 3 [id number] Memoria 14:15:00 04:59:59 r Medicine 22 leonard Zhang n 2019-01-02 2019-01-03 Outpatient nullFlavo MG Family 3 [id number] Memoria 14:15:00 04:59:59 r Medicine 22 leonard Zhang n 2019-01-02 2019-01-02 Outpatient [place]- MG MG [id number] 13:45:00 23:59:59 Reynold Toledo 2019-01-02 2019-01-02 Outpatient Carrillo, MG MG [id number] 09:15:00 23:59:59 Antonella Davis 22 2019-01-02 2019-01-02 Outpatient MHIE IE [id number] Memoria 13:45:00 13:45:00 Reynold Barrios 2019-01-02 2019-01-02 Outpatient [facility] [id number] Memoria 09:15:00 09:15:00 22 leonard Denis 2018-12-31 2019-01-01 Between nullFlavo MG [id number] Memoria 23:59:47 23:59:47 Visit r Nephrology 26 leonard Zhang ryan 2018-12-31 2019-01-01 Between nullFlavo MG [id number] Memoria 23:59:47 23:59:47 Visit r Nephrology 26 leonard Zhang ryan 2018-12-31 2019-01-01 Outpatient [facility] [id number] 18:59:47 18:59:47 26 2018-12-27 2018-12-28 Between nullFlavo MG [id number] Memoria 22:00:33 22:00:33 Visit r Nephrology 24 l Carrillo Zhang ryan 2018-12-27 2018-12-28 Between nullFlavo MG [id number] Memoria 22:00:33 22:00:33 Visit r Nephrology 24 leonard Zhang ryan 2018-12-27 2018-12-28 Outpatient [facility] [id number] 16:00:33 16:00:33 24 2018-12-27 2018-12-28 Between nullFlavo MG [id number] Memoria 04:48:44 04:48:44 Visit r Nephrology 23 leonard Zhang ryan 2018-12-27 2018-12-28 Between nullFlavo MG [id number] Memoria 04:48:44 04:48:44 Visit r Nephrology 23 leonard Zhang ryan 2018-12-26 2018-12-27 Outpatient [facility] [id number] 22:48:44 22:48:44 23 2018-11-14 2018-11-14 [place] [id number] Memoria 20:30:00 20:30:00 Pre-Reg r Nephrology 27 leonard Zhang ryan 2018-11-14 2018-11-14 [place] [id number] Memoria 20:30:00 20:30:00 Pre-Reg r Nephrology 27 leonard Zhang ryan 2018-11-14 2018-11-14 [place] [id number] Memoria 18:40:00 18:40:00 Pre-Reg r Nephrology 24 leonard davis 2018-11-14 2018-11-14 Ambulatory nullFlavo [facility] [id number] Memoria 18:40:00 18:40:00 Pre-Reg r Nephrology 24 leonard davis 2018-11-14 2018-11-14 Outpatient MHIE MHIE [id number] Memoria 14:30:00 14:30:00 27 leonard Denis 2018-11-14 2018-11-14 Outpatient [place]- MH[facility] MG [id number] 14:30:00 14:30:00 Cordell Toledo 2018-11-14 2018-11-14 Outpatient [place]- MH[facility] MG [id number] 14:30:00 14:30:00 Cordell Toledo 2018-11-14 2018-11-14 Outpatient MHIE MHIE [id number] Memoria 12:40:00 12:40:00 24 leonard RameyBellevue 2018-11-14 2018-11-14 Outpatient [place]- MHMG MG [id number] 12:40:00 12:40:00 Yesi Toledo 2018-11-14 2018-11-14 Outpatient [place]- MH[facility] MG [id number] 12:40:00 12:40:00 Yesi Toledo 2018-11-07 2018-11-07 [place] [id number] Memoria 15:30:00 15:30:00 Pre-Reg r Internal 25 [facility] Denis Vizcaino 2018-11-07 2018-11-07 [place] [id number] Memoria 15:30:00 15:30:00 Pre-Reg r Internal 25 [facility] Denis Vizcaino 2018-11-07 2018-11-07 Outpatient MHIE MHIE [id number] Memoria 09:30:00 09:30:00 25 leonard Barrios 2018-11-07 2018-11-07 Outpatient MHMG MHMG [id number] 09:30:00 09:30:00 25 2018-07-11 2018-08-10 Ambulatory nullFlavo MHMG [id number] Memoria 12:45:00 12:45:00 Pre-Reg r Internal 23 l Narayan Postberg 2018-07-11 2018-08-10 [place] [id number] Memoria 12:45:00 12:45:00 Pre-Reg r Internal 23 leonard Postberg 2018-07-11 2018-08-10 Outpatient MHMG MG [id number] 07:45:00 07:45:00 23 2018-07-18 2018-07-19 [place] [id number] Memoria 19:15:00 04:59:59 r Nephrology 26 leonard davis 2018-07-18 2018-07-19 [place] [id number] Memoria 19:15:00 04:59:59 r Nephrology 26 leonard davis 2018-07-18 2018-07-19 [place] [id number] Memoria 18:00:00 04:59:59 r Nephrology 21 leonard Zhang ryan 2018-07-18 2018-07-19 [place] [id number] Memoria 18:00:00 04:59:59 r Nephrology 21 leonard Zhang ryan 2018-07-18 2018-07-18 Outpatient [place]- MG MG [id number] 14:15:00 23:59:59 Daca, Kim Valarie J 2018-07-18 2018-07-18 Outpatient [place]- MG MG [id number] 13:00:00 23:59:59 Daca, 21 Valarie Haris 2018-07-18 2018-07-18 Outpatient IE IE [id number] Memoria 14:15:00 14:15:00 26 leonard Denis 2018-07-18 2018-07-18 Outpatient MHIE IE [id number] Memoria 13:00:00 13:00:00 21 leonard Denis 2018-07-11 2018-07-11 Outpatient MHIE IE [id number] Memoria 07:45:00 07:45:00 23 leonard eDnis 2018-06-11 2018-06-12 Outpatient nullFlavo MG Family 3 [id number] Memoria 18:30:00 04:59:59 r Medicine 20 leonard Zhang ryan 2018-06-11 2018-06-12 Outpatient nullFlavo MG Family 3 [id number] Memoria 18:30:00 04:59:59 r Medicine 20 leonard Zhang n 2018-06-11 2018-06-11 Outpatient Carrillo, MHMG MG [id number] 13:30:00 23:59:59 Antonella N 20 2018-06-11 2018-06-11 Outpatient MHIE MHIE [id number] Memoria 13:30:00 13:30:00 20 leonard Barrios 2018-01-10 2018-01-11 [place] [id number] Memoria 16:00:00 04:59:59 r Nephrology 19 l Carrillo Zhang n 2018-01-10 2018-01-11 [place] [id number] Memoria 16:00:00 04:59:59 r Nephrology 19 leonard Zhang ryan 2018-01-10 2018-01-10 Outpatient [place]- MG MG [id number] 11:00:00 23:59:59 Daca, Ludivina Carballo 2018-01-10 2018-01-10 Outpatient [place]- MG MG [id number] 11:00:00 23:59:59 Daca, 19 Valarie J 2018-01-10 2018-01-10 Outpatient MHIE IE [id number] [facility] 11:00:00 11:00:00 19 leonard Barrios 2018-01-09 2018-01-10 Outpatient [facility] Family 3 [id number] [facility] 15:00:00 04:59:59 r Medicine 18 leonard Zhang ryan 2018-01-09 2018-01-10 Outpatient [facility] Family 3 [id number] [facility] 15:00:00 04:59:59 r Medicine 18 leonard Zhang n 2018-01-09 2018-01-09 Outpatient Carrillo, [facility] MG [id number] 10:00:00 23:59:59 Antonella N 18 2018-01-09 2018-01-09 Outpatient Carrillo, [facility] MG [id number] 10:00:00 23:59:59 Antonella N 18 2018-01-09 2018-01-09 Outpatient MHIE MHIE [id number] [facility] 10:00:00 10:00:00 18 leonard Barrios 2017-07-19 2017-07-19 Outpatient MHIE MHIE [id number] [facility] 10:40:00 10:40:00 16 leonard Denis 2017-07-19 2017-07-19 Outpatient MHIE MHIE [id number] [facility] 10:40:00 10:40:00 16 leonard Denis 2017-06-27 2017-06-27 Outpatient MHIE MHIE [id number] [facility] 11:30:00 11:30:00 17 leonard Denis 2017-06-27 2017-06-27 Outpatient MHIE MHIE [id number] [facility] 11:30:00 11:30:00 17 leonard Denis 2017-03-01 2017-03-01 Outpatient MHIE MHIE [id number] [facility] 11:40:00 11:40:00 11 leonard Denis 2017-03-01 2017-03-01 Outpatient MHIE MHIE [id number] [facility] 11:40:00 11:40:00 11 leonard Denis 2016-12-26 2016-12-26 Outpatient MHIE MHIE [id number] [facility] 14:30:00 14:30:00 15 leonard Denis 2016-12-26 2016-12-26 Outpatient MHIE MHIE [id number] [facility] 14:30:00 14:30:00 15 leonard Denis 2016-11-27 2016-11-27 Outpatient MHIE MHIE [id number] [facility] 10:00:00 10:00:00 08 leonard Denis 2016-11-27 2016-11-27 Outpatient MHIE MHIE [id number] [facility] 10:00:00 10:00:00 08 leonard Barrios 2016-11-17 2016-11-17 [facility] [id number] [facility] 11:48:35 14:30:00 Outpatient r Denis 13 l [place] Karen nn 2016-11-17 2016-11-17 [facility] [id number] [facility] 11:48:35 14:30:00 Outpatient magalys Barrios 13 l [place] Karen nn 2016-11-17 2016-11-17 Outpatient ADRIAN SmithSL [facility] [id number] 05:48:35 08:30:00 Reinaldo Ware 2016-11-09 2016-11-09 Outpatient MHIE MHIE [id number] Memoria 13:15:00 13:15:00 14 l Denis 2016-11-09 2016-11-09 Outpatient MHIE MHIE [id number] Memoria 13:15:00 13:15:00 14 leonard Denis 2016-10-18 2016-10-18 Outpatient MHIE MHIE [id number] Memoria 09:30:00 09:30:00 12 leonard Denis 2016-10-18 2016-10-18 Outpatient MHIE MHIE [id number] Memoria 09:30:00 09:30:00 13 leonard Denis 2016-10-18 2016-10-18 Outpatient MHIE MHIE [id number] Memoria 09:30:00 09:30:00 12 leonard Denis 2016-10-18 2016-10-18 Outpatient MHIE MHIE [id number] Memoria 09:30:00 09:30:00 13 leonard Denis 2016-10-12 2016-10-12 Outpatient MHIE MHIE [id number] Memoria 10:20:00 10:20:00 09 leonard Denis 2016-10-12 2016-10-12 Outpatient MHIE MHIE [id number] Memoria 10:20:00 10:20:00 09 leonard Denis 2016-07-13 2016-07-13 Outpatient MHIE MHIE [id number] Memoria 13:00:00 13:00:00 04 leonard Denis 2016-07-13 2016-07-13 Outpatient MHIE MHIE [id number] Memoria 13:00:00 13:00:00 04 leonard Barrios 2016-05-24 2016-05-24 Outpatient MHIE MHIE [id number] Memoria 11:15:00 11:15:00 06 leonard Barrios 2016-05-24 2016-05-24 Outpatient MHIE MHIE [id number] Memoria 11:15:00 11:15:00 06 leonard Barrios 2016-04-13 2016-05-13 OP Therapy nullFlavo SMR [id number] Memoria 13:00:00 04:59:00 Patients r Girish 03 leonard Barrios 2016-04-13 2016-05-13 OP Therapy nullFlavo SMR [id number] Memoria 13:00:00 04:59:00 Patients r Girish 03 leonard Barrios 2016-04-13 2016-05-12 Outpatient Elizabeth 2.16.840. 2.16.840.1. 3 [id number] 08:00:00 23:59:00 Jose Francisco Blackburn 1.004476. [id number] 03 3.615.55 5.55 2016-03-14 2016-04-13 OP Therapy nullFlavo SMR [id number] Memoria 17:39:00 04:59:00 Patients magalys Stout 02 leonard Barrios 2016-03-14 2016-04-13 OP Therapy nullFlavo SMR [id number] Memoria 17:39:00 04:59:00 Patients r Girish 02 leonard Barrios 2016-03-14 2016-04-12 Outpatient Elizabeth, 2.16.840. 2.16.840.1. 3 [id number] 12:39:00 23:59:00 Jose Francisco Blackburn [id number]. [id number] 02 3.615.55 5.55 2016-03-09 2016-04-08 OP Therapy nullFlavo SMR Sugar [id number] Memoria 19:00:00 04:59:00 Patients r Hamilton leonard Barrios 2016-03-09 2016-04-08 OP Therapy nullFlavo SMR Sugar [id number] Memoria 19:00:00 04:59:00 Patients r [place] leonard Barrios 2016-03-09 2016-04-07 Outpatient Johnson, 2.16.840. 2.16.840.1. 3 [id number] 14:00:00 23:59:00 Jose Francisco Blackburn [id number]. [id number] 01 3.615.69 5.69 2016-03-13 2016-03-14 Outpt Diag nullFlavo [facility] [address] [id number] Memoria 16:14:00 04:59:00 Services r Outpatient 04 l Imaging [facility] [place] 2016-03-13 2016-03-14 Outpt Diag nullFlavo [facility] [address] [id number] Memoria 16:14:00 04:59:00 Services r Outpatient 04 l Imaging [facility] [place] 2016-03-13 2016-03-13 [facility] 817 [id number] 11:14:00 23:59:00 Jv [place] 2016-02-08 2016-03-09 OP Therapy nullFlavo SMR Sugar [id number] Memoria 19:00:00 04:59:00 Patients r [place] 00 leonard Barrios 2016-02-08 2016-03-09 OP Therapy nullFlavo SMR Sugar [id number] Memoria 19:00:00 04:59:00 Patients r [place] 00 leonard Barrios 2016-02-08 2016-03-08 Outpatient Elizabeth 2.16.840. 2.16.840.1. 3 [id number] 14:00:00 23:59:00 Jose Francisco Blackburn [id number]. [id number] 3.615.69 5.69 2016-03-02 2016-03-02 Outpatient [facility] [id number] Memoria 10:20:00 10:20:00 01 leonard Barrios 2016-03-02 2016-03-02 Outpatient [facility] [id number] Memoria 10:20:00 10:20:00 01 leonard Barrios 2016-02-29 2016-03-01 Outpt Diag nullFlavo [facility] [address] [id number] Memoria 14:59:00 04:59:00 Services r Outpatient 03 l Imaging Denis Soto 2016-02-29 2016-03-01 Outpt Diag nullFlavo [facility] [address] [id number] Memoria 14:59:00 04:59:00 Services r Outpatient 03 l Imaging Denis [place]oto 2016-02-29 2016-02-29 Outpatient [facility] 28 [id number] 09:59:00 23:59:00 Atkins 2016-01-20 2016-01-21 Outpt Diag nullFlavo [facility] [address] [id number] Memoria 18:11:00 04:59:00 Services r Outpatient 01 l Imaging Denis [place] 2016-01-20 2016-01-21 Outpt Diag nullFlavo [facility] [address] [id number] Memoria 18:11:00 04:59:00 Services r Outpatient 01 l Imaging Denis [place] 2016-01-20 2016-01-20 Outpatient [facility] 29 [id number] 13:11:00 23:59:00 Atkins 2015-12-30 2015-12-30 Outpatient nullFlavo [facility] [id number] Memoria 12:50:31 19:25:00 r leonard Barrios 2015-12-30 2015-12-30 Outpatient 2.16.840. 2.16.840.1. 3 [id number] Memoria 12:50:31 19:25:00 [id number]. [id number] l 3.2081.20 81.2000 Vicente n 00 [facility] 2015-12-30 2015-12-30 Outpatient nullFlavo [facility] [id number] Memoria 12:50:31 19:25:00 r l Denis 2015-11-30 2015-12-01 Outpt Diag nullFlavo [facility] [address] [address] [id number] Memoria 12:58:00 05:59:00 Services r Outpatient 00 l Imaging [facility] [place] 2015-11-30 2015-12-01 Outpt Diag nullFlavo [facility] [address] [id number] Memoria 12:58:00 05:59:00 Services r Outpatient 00 l Imaging Denis [place] 2015-11-30 2015-11-30 Outpatient Marsha Lazo [id number] 06:58:00 23:59:00 Atkins 00 2015-11-19 2015-11-19 Outpatient MHIE IE [id number] Memoria 10:15:00 10:15:00 02 l Deins 2015-11-19 2015-11-19 Outpatient MHIE MHIE [id number] Memoria 10:15:00 10:15:00 02 l Denis 2015-09-02 2015-09-02 Outpatient MHIE MHIE [id number] Memoria 11:30:00 11:30:00 00 leonard Barrios 2015-09-02 2015-09-02 Outpatient MHIE IE [id number] Memoria 11:30:00 11:30:00 00 leonard Barrios 2013-12-18 2013-12-18 Outpatient nullFlavo [facility] [id number] Memoria 01:16:00 05:59:00 r Denis [id number] [place] 1 [facility] 2013-12-18 2013-12-18 Outpatient [facility]Fl[facility] 3467 [id number] Memoria 01:16:00 05:59:00 r Denis [id number] [place] 1 [facility] 2013-12-17 2013-12-17 Outpatient [facility] 2.16.840. 2.16.840. 1. [id number] 19:16:00 23:59:00 , Yusef 1.735554. [id number] Bernadette 3.615.0.1 5.0.234 13 3432-02-26 2013-12-17 Outpatient nullFlavo [id number] Memoria 19:16:00 19:16:00 r [place] 01 l [facility] 2013-12-17 2013-12-17 Outpatient nullFlavo [id number] Memoria 19:16:00 19:16:00 r [place] 01 l [facility] 2013-12-02 2013-12-02 Outpatient nullFlavo [id number] Memoria 19:43:00 19:43:00 r [place] 00 l Denis 2013-12-02 2013-12-02 [id number] Memoria 19:43:00 19:43:00 r [place] 00 l [facility] Results Test Description Test Time Test Comments Results Result [facility] e Comments PET/CT, CARDIAC 2022-09-26 Reason for PERF REST AND 16:05:00 exam:->[facility] 1955 Sex: F FINAL REPORT PROCEDURE: MYOCARDIAL PERFUSION PET/CT IMAGING (Rest/Stress)CPT CODE: 39994 INDICATION: Evaluation for chest pain CARDIOVASCULAR PROFILE:CAD [...] prior study for comparison. Signed: Cor[facility] Verified Date/Time: 09/26/2022 16:05:42 C METABOLIC PANEL [...] s not applicable for dialysis pa tients Chair Mender ID - MARCOSpecimen slightly [id number] 05:55:08 Test Item Value Reference Range Interpretation Comments MAGNESIUM (BEAKER) 1.9 mg/dL 1.6-2.6 Specimen slightly (test code = 627) hemolyzed Chair Mender ID - [id number] 05:55:08 Test Item Value Reference Range Interpretation Comments PHOSPHORUS (BEAKER) 3.4 mg/dL 2.3-4.7 Specimen slightly (test code = 604) hemolyzed Chair Mender ID - MARCOCBC W/PLT COUNT & AUTO [id number] 04:43:14 Test Item Value Reference Range Interpretation [...] 2801) PROTEIN ELECTROPHORESIS, SERUM WITH REFLEX TO [id number] 16:42:33 Test Item Value Reference Range Interpretation [...] 2615) malnutrition or a protein losing state. [id number] Crystal Moore MD (BEAKER) (test code = (electronic signature) 2616) PROTEIN TOTAL SERUM, 6.0 gm/dL 6.0-8.3 SPEP (BEAKER) (test code = 2660) Clinical Taper Operator - SFOperator ID - LETICIA BOperator ID - ADMPERIPHERAL BLOOD SMEAR - PATHOLOGIST [id number] 14:33:15 Test Item Value Reference Range Interpretation Comments PERIPHERAL SMR REVIEW Cell counts confirmed. (BEAKER) (test code = There is macrocytic 2640) anemia. Platelets are decreased with no significant platelet clumps or satellitism identified. [id number] Evan Dixon, (BEAKER) (test code = M.D. 2849) HEPATITIS B SURFACE [id number] 10:29:09 Test Item Value Reference Range Interpretation Comments HEPATITIS B SURFACE ANTIGEN (2) Nonreactive Nonreactive (BEAKER) (test code = 2585) Specimen is considered negative for HBsAg.Transthoracic 2D echo w/ doppler (cw/pw/color)2022-09-25 08:20:07Ejection FractionSLEH ECHO [facility] w/ doppler (cw/pw/color) 2022-09-25 08:20:07Ejection FractionSLEH ECHO HEARTLAB [facility]D [facility] w/ doppler (cw/pw/color)2022-09-25 08:20:07Ejection FractionSLE ECHO [facility]ARTLAB [facility] C [id number] 05:41:18 Test Item Value Reference Range Interpretation Comments HEPATITIS C ANTIBODY (BEAKER) Nonreactive Nonreactive (test code = 367) Chair Mender ID - EMMANUELBASIC METABOLIC [id number] 05:22:16 Test Item Value Reference Range Interpretation [...] not appl icable for dialysis patien ts Chair Mender ID - [id number] 05:21:47 Test Item Value Reference Range Interpretation Comments MAGNESIUM (BEAKER) (test code = 2.0 mg/dL 1.6-2.6 627) Chair Mender ID - IYKHRRSERQVKPNNYDF0071-09-26 05:21:47 Test Item Value Reference Range Interpretation Comments PHOSPHORUS (BEAKER) (test code = 4.8 mg/dL 2.3-4.7 H 604) Chair Mender ID - EMMANUELCBC W/PLT COUNT & AUTO [id number] 05:05:48 Test Item Value Reference Range Interpretation [...] (BEAKER) (test code = 2801) BASIC METABOLIC [id number] 05:39:02 Test Item Value Reference Range Interpretation [...] not appl icable for dialysis patien ts Chair Mender ID Merline GRANT [id number] 05:34:03 Test Item Value Reference Range Interpretation Comments MAGNESIUM (BEAKER) (test code = 1.9 mg/dL 1.6-2.6 627) Chair Mender ID Merline GRANT [id number] 05:34:03 Test Item Value Reference Range Interpretation Comments PHOSPHORUS (BEAKER) (test code = 5.9 mg/dL 2.3-4.7 H 604) Chair Mender ID Merline GRANT WCBC W/PLT COUNT & AUTO [id number] 04:51:11 Test Item Value Reference Range Interpretation [...] (test code = 2801) HIGH SENSITIVITY TROPONIN [id number] 18:47:20 Test Item Value Reference Range Interpretation Comments HIGH SENSITIVITY 22 pg/ml See_Comment H [Automated message] TROPONIN I (test code = The system which 0413276) generated this result transmitted ref erence range: <=17. Th e reference range was not used to int erpret this result as normal/abnormal . Chair Mender ID - LETICIA BThe CARE PROGRAM DIRECTOR STAT High Sensitivity Troponin-I results should be used in conjunction with other diagnostic information such as ECG, clinical observations and information, and patient symptoms to aid in the diagnosis of VA.[id number] 18:35:03 Test Item Value Reference Range Interpretation Comments POTASSIUM (BEAKER) (test code = 3.1 meq/L 3.5-5.1 L 379) Chair Mender ID - LETICIA JUSTIN, CHEST, 1 VIEW, NON [id number] 16:19:00Reason for exam:->pulm edemaShould this be performed at the bedside?->Yes [facility] : 1955 Sex: FFINAL REPORT [...] Samia Rodriguez MDReport Verified Date/Time: 09/23/2022 16:19:33 [id number] 16:00:35 Test Item Value Reference Range Interpretation Comments THYROID STIMULATING HORMONE 1.121 uIU/mL 0.350-4.940 (DONNY) (test code = 772) Chair Mender ID - LETICIA BHIGH SENSITIVITY TROPONIN [id number] 15:45:53 Test Item Value Reference Range Interpretation Comments HIGH SENSITIVITY 23 pg/ml See_Comment H [Automated message] TROPONIN I (test code = The system which 9749137) generated this result transmitted ref erence range: <=17. Th e reference range was not used to int erpret this result as normal/abnormal . Chair Mender ID - LETICIA BThe CARE PROGRAM DIRECTOR STAT High Sensitivity Troponin-I results should be used in conjunction with other diagnostic information such as ECG, clinical observations and information, and patient symptoms to aid in the diagnosis of VA.B-TYPE NATRIURETIC FACTOR (BNP)2022-09-23 15:45:53 Test Item Value Reference Range Interpretation Comments B-TYPE NATRIURETIC PEPTIDE (BEAKER) 395 pg/mL 0-100 H (test code = 700) Chair Mender ID - LETICIA BCOMPREHENSIVE METABOLIC [id number] 15:42:17 Test Item Value Reference Range Interpretation [...] not appl icable for dialysis patien ts Chair Mender ID - LETICIA [id number] 15:39:33 Test Item Value Reference Range Interpretation Comments MAGNESIUM (BEAKER) (test code = 1.9 mg/dL 1.6-2.6 627) Chair Mender ID - LETICIA [id number] 15:39:33 Test Item Value Reference Range Interpretation Comments PHOSPHORUS (BEAKER) (test code = 5.0 mg/dL 2.3-4.7 H 604) Chair Mender ID - LETICIA BCBC W/PLT COUNT & AUTO [id number] 15:23:08 Test Item Value Reference Range Interpretation [...] (BEAKER) (test code = 2801) ECG 12 [id number] 22:49:39 Test Item Value Reference Range Interpretation [...] ECG of 28-APR-2022 02:20,-QRS axis shifted right- Sil VoARS-CoV-2 (COVID-19) RNA [Presence] in Respiratory specimen by DANIEL with probe [id number] 04:29:38 Test Item Value Reference Range Interpretation Comments SARS-CoV-2 (COVID-19) RNA Not detected [Presence] in Respiratory specimen by DANIEL with probe detection (test code = 88511-4) Whether patient is employed in a Unknown healthcare setting (test code = 34649-5) Whether the patient has symptoms Unknown related to condition of interest (test code = 25359-6) Whether the patient was Unknown hospitalized for condition of interest (test code = 26414-9) Whether the patient was admitted Unknown to intensive care unit (ICU) for condition of interest (test code = 30073-7) Whether patient resides in a Unknown congregate care setting (test code = 82057-4) status (test code = Unknown 05778-8) Date and time of symptom onset Unknown (test code = 19681-3) [facility]ENTERParathy[facility] [id number] 17:49:00 Test Item Value Reference Interpretation Comments [...] RAC) Organization Information: Site ID: [facility] Address: [address] [place] [address] Director: Yusef Boyce Lab Abnormal Interpretation (test code = 07700-5) [facility] HospitalThy[facility] stimulating [id number] 17:49:00 Test Item Value Reference Range Interpretation Comments TSH (test See_Comment [Automated mes hermes] code = The system [facility] h 3016-3) generated this result transmit yahir reference range : 0.40 - 4.50 mIU /L. The reference r edy was not used to interpret this result as normal/abnormal . GUICHO (test FASTING:NO FASTING: code = GUICHO) NO RAC (test Performing code = RAC) Organization Information: Site ID: [facility] Address: [address] [place], [place] [id number] Director: Yusef Boyce [facility] HospitalVitamin D 25 hydroxy [id number] 17:49:00 Test Item Value Reference Range Interpretation [...] please refer to [email or web address] .[email or web address] m/[email or web address] (T his link is being provided for informational/e gini ational purpose s only.) GUICHO (test code = FASTING:NO FASTING: GUICHO) NO RAC (test code = Performing RAC) Organization Information: Site ID: [facility] Address: [address] [place] [address] Director: Yusef Boyce [facility] [id number] 04:51:00 Test Item Value Reference Range Interpretation Comments POC glucose (test code = 129 mg/dL 65-99 H Ope rator Name: 71442-6) Alfred Timmons~Radha ce ID: [id number]~Laura table : HMW Notified cell efficiency supervisor Interpretation (test Abnormal code = 34613-7) [facility]an[facility]acic Echocardiogram Complete, (w Contrast, Strain and 3D if needed)2022-06-26 14:28:07 Test Item Value Reference Interpretation Comments Range RA pressure (test mmHg code = 1088252157) EF (test code = 50 % 54-74 A 2849824237) IVS,d (test code = 0.92 cm 0.6-0.9 A 3815150850) IVS s 2D (test code 1.08 cm = 5059819629) LVPWD,d (test code = 0.93 cm 0.60-1.19 0101949254) LVPW s PLAX (test 1.13 cm code = 3340495676) LV,s (test code = 2.94 cm 0682297357) LVOT Diam,S (test 1.98 cm code = 7270926568) LV BURGESS VOL (test 66.04 ml 46-106 code = 4484925943) LV SYS VOL (test 33.32 ml 14-42 code = 0876238557) MV Peak E Jonathan (test 1.61 m/s code = 0079338437) MV Peak A Jonathan (test 0.58 m/s code = 4771233104) E/A ratio (test code See_Comment A [Autom ated = 5265261414) message] The system which generated this result transmitted reference range : <=0.8. The reference range was not used to interpret this result as normal/abnormal . E wave decelartion See_Comment A [Automat ed time (test code = message] T he 6465805356) system which generated this result transmitted reference range : 200 msec. The reference range was not used to interpret this result as normal/abnormal . LV,d (test code = 3.90 cm 0727361278) IVS/LVPW,2D (test code = 8985027012) LV EF,2D (test code 57.26 % = 8637240500) LV FS Cube 2D (test code = 6340653186) LV FS Teich 2D (test code = 9071825095) LV SV Teich 2D (test 32.73 ml code = 9781743503) LV Vol s Teich PSAX 33.32 ml (test code = 2789048573) LVOT stroke volume 0.46 cm3 (test code = 6155213285) Left Atrium 5.30 cm See_Comment A [Automated Dimension Anterior message] The (test code = system which 9002994746) generated this result transmitted reference range : <=3.8. The reference range was not used to interpret this result as normal/abnormal . LA Vol MOD A4C (test 130.09 ml code = 4415792308) LA area s A4C (test 36.52 cm2 code = 7315474683) LVOT area (test code 3.08 cm2 = 7923127630) LVOT Vmax (test code 0.85 m/s = 5091477456) AoV Mean PG (test See_Comment [Automate d code = 8416233773) message] The system which generated this result transmitted reference range : 20 mmHg. The reference range was not used to interpret this result as normal/abnormal . AoV Peak PG (test mmHg code = 0265017540) AV LVOT peak mmHg gradient (test code = 0433428063) AoV Area, Vmax (test 1.94 cm2 See_Comment [Autom ated code = 4709630596) message] The system which generated this result transmitted reference range : >=1.5. The reference range was not used to interpret this result as normal/abnormal . LVOT VTI (CM) (test 15.00 cm code = 3930148278) AoV Vmax (test code 1.35 m/s = 2298873365) AoV Vmn (test code = 0.82 m/s 0468369283) AoV Area, VTI (test 2.30 cm2 code = 4876648628) LVOT CO (test code = 4.72 l/min 0285430644) LVOT HR for LVOT CO bpm (test code = 4584650220) Velocity Ratio 0.63 m/s (V1/V2) (test code = 4689) MV mean gradient See_Comment [Automated (test code = message] The 3230983745) system which generated this result transmitted reference range : 5 mmHg. The reference range was not used to interpret this result as normal/abnormal . MR peak grad (test mmHg code = 1146568107) MV stenosis pressure 30.12 ms See_Comment [Autom ated 1/2 time (test code message] The = 0243718838) system which generated this result transmitted reference range : <=150. The reference range was not used to interpret this result as normal/abnormal . MV E A ratio (test code = 2409021088) MV valve area p 1/2 7.30 cm2 method (test code = 3016791552) MV VTI Tips (test 0.15 m code = 2569178122) MV Vmax (test code = 0.72 m 0598615773) RVSP (test code = See_Comment A [Automate d 0320521466) message] The system which generated this result transmitted reference range : 40.00 mmHg. The reference range was not used to interpret this result as normal/abnormal . TR pk grad (test mmHg code = 7842140406) TR Vpeak (test code 2.85 m/s = 7484665450) RVSP (TR) (test code mmHg = 8584269338) RVOT Vmax (test code 0.44 m/s = 8937491728) PV Mean Grad (test mmHg code = 6353663493) PV Pk Grad (test See_Comment [Automated code = 1985724782) message] The system which generated this result transmitted reference range : 36 mmHg. The reference range was not used to interpret this result as normal/abnormal . PV VTI (test code = 0.17 m 5444725573) RVOT pk grad (test mmHg code = 2213028352) PV VMAX (test code = 1.05 m/s See_Comment [Autom ated 4786303520) message] The system which generated this result transmitted reference range : <=3. The reference range was not used to interpret this result as normal/abnormal . PV Vmn (test code = 5638740728) Ao Root Diameter 2.95 cm See_Comment [Automated (test code = message] The 5685205230) system which generated this result transmitted reference range : <=3.99. The reference range was not used to interpret this result as normal/abnormal . Ao Root Diameter 2.95 cm (test code = 3133998918) Ascending aorta 2.58 cm (test code = 0455918625) Pred METS R1 (test code = 4763794113) Pred Exer Dur R1 (test code = 3930866817) MV Decel slope (test 15.54 m/s2 code = 7452284155) LVPW pct thck PLAX 20.67 % (test code = 9232602339) LV vol s cube 2D 25.42 ml (test code = 4188823961) LV vol d cube 2D 59.47 ml (test code = 5667123976) LV SV Cube 2D (test 34.05 ml code = 9632316227) IVS pct thck PLAX 17.04 % (test code = 5061535129) Calc MPHR (test code bpm = 8130156816) 85 of MPHR (test code = 0168842000) RVOT VTI (test code 0.08 m = 4149876492) RVOT Vmn (test code 0.30 m/s = 5313529574) RVOT mean grad (test mmHg code = 2129415389) MAX Pred HR (test code = 1315189721) LVOT mean grad (test mmHg code = 6005350680) Aov area Vmn (test 2.31 cm2 code = 8772185403) MV AE ratio (test code = 6555497179) LVOT Vmn (test code = 5798224661) MR Vmax (test code = 4.65 m/s 3287166672) AoV VTI (test code = 0.20 m 9177256828) LVOT VTI (test code 0.15 m = 0596077041) GUICHO (test code = GUICHO) Left Ventricle: [...] artifact. Lab Interpretation Abnormal (test code = 13407-8) [facility] PzbteiuvZVRG-NrD-9 (COVID-19) RNA [Presence] in Respiratory specimen by DANIEL with probe [id number] 19:34:22 Test Item Value Reference Range Interpretation Comments SARS-CoV-2 (COVID-19) RNA [Presence] Detected in Respiratory specimen by DANIEL with probe detection (test code = 65215-8) Whether patient is employed in a Unknown healthcare setting (test code = 81422-6) Whether the patient has symptoms Unknown related to condition of interest (test code = 47389-2) Whether the patient was hospitalized Unknown for condition of interest (test code = 20784-8) Whether the patient was admitted to Unknown intensive care unit (ICU) for condition of interest (test code = 76933-7) Whether patient resides in a Unknown congregate care setting (test code = 51988-6) status (test code = Unknown 83496-8) Date and time of symptom onset (test Unknown code = 22394-9) [facility] METABOLIC [id number] 16:39:00 Test Item Value Reference Range Interpretation [...] = 8.8 mg/dL 8.0-10.5 N CA) PROTHROMBIN [id number] 16:33:00 Test Item Value Reference Range Interpretation Comments PROTHROMBIN TIME 13.1 SECONDS 9.3-12.9 H PATIENT (test code = PTP) INTERNATIONAL NORMAL 1.2 0.8-1.2 N TARGE T INR BY RATIO [...] Acute Myocardia l Infarction (to prevent systemic embol ism), Valvular heart disease, Atrial Fibrillation, Bileaflet mecha nical valve in aortic position.2. Mec hanical prosthetic valv es (high risk), 2. 5 - 3.5 Presence of Lup us Anticoagulant o r Antiphospholipi d Antibodies, Pre vention of systemic emb olism - Acute Myocardia l Infarction (to prevent recurrent infar ct). CBC W/AUTO [id number] 16:23:00 Test Item Value Reference Range Interpretation [...] code NO = MDIFF) Hepatitis B surface [id number] 21:36:32 Test Item Value Reference Range Interpretation Comments Hep B S Ab (test code <8.0 See_Comment [Auto mated = 97194-8) message] The system which generated this result transmit yahir reference range : <8.0 mIU/mL. Th e reference range was not used to interpret this result as normal/abnormal . GUICHO (test code = GUICHO) Chair Mender ID - DB Lab Interpretation Normal (test code = 09636-4) [facility] B surface [id number] 21:36:32 Test Item Value Reference Range Interpretation Comments Hep B S Ab (test code <8.0 See_Comment [Auto mated = 81062-7) message] The system which generated this result transmit yahir reference range : <8.0 mIU/mL. Th e reference range was not used to interpret this result as normal/abnormal . GUICHO (test code = GUICHO) Chair Mender ID - DB Lab Interpretation Normal (test code = 95060-6) [facility] hatcekzn2236-75-57 21:36:32 Test Item Value Reference Range Interpretation Comments Hep B S Ab (test code <8.0 See_Comment [Auto mated = 97930-6) message] The system which generated this result transmit yahir reference range : <8.0 mIU/mL. Th e reference range was not used to interpret this result as normal/abnormal . GUICHO (test code = GUICHO) Chair Mender ID - DB Lab Interpretation Normal (test code = 00731-3) [facility] [id number] 21:36:32 Test Item Value Reference Range Interpretation Comments Hep B S Ab (test code <8.0 See_Comment [Auto mated = 97132-2) message] The system which generated this result transmit yahir reference range : <8.0 mIU/mL. Th e reference range was not used to interpret this result as normal/abnormal . GUICHO (test code = GUICHO) Chair Mender ID - DB Lab Interpretation Normal (test code = 83188-0) [facility] [id number] 21:36:32 Test Item Value Reference Range Interpretation Comments Hep B S Ab (test code <8.0 See_Comment [Auto mated = 16677-1) message] The system which generated this result transmit yahir reference range : <8.0 mIU/mL. Th e reference range was not used to interpret this result as normal/abnormal . GUICHO (test code = GUICHO) Chair Mender ID - DB Lab Interpretation Normal (test code = 36994-9) [facility] [id number] 21:36:32 Test Item Value Reference Range Interpretation Comments HEPATITIS B SURFACE ANTIBODY < mIU/mL <8.0 (BEAKER) (test code = 647) Chair Mender ID - DBHepatitis B surface alppazq0555-58-70 21:24:22 Test Item Value Reference Range Interpretation Comments Hepatitis B surface Nonreactive Nonreactive antigen (test code = 5195-3) GUICHO (test code = GUICHO) Specimen is considered negative for HBsAg. Lab Interpretation (test Normal code = 58261-7) [facility] B surface [id number] 21:24:22 Test Item Value Reference Range Interpretation Comments Hepatitis B surface Nonreactive Nonreactive antigen (test code = 5195-3) GUICHO (test code = GUICHO) Specimen is considered negative for HBsAg. Lab Interpretation (test Normal code = 51140-2) [facility] B SURFACE [id number] 21:24:22 Test Item Value Reference Range Interpretation Comments HEPATITIS B SURFACE ANTIGEN (2) Nonreactive Nonreactive (BEAKER) (test code = 2585) Specimen is considered negative for HBsAg.Transthoracic Echocardiogram Complete, (w Contrast, Strain and 3D if needed)2022-04-13 13:23:07 Test Item Value Reference Interpretation Comments Range EF (test code = 66 % 54-74 5357324493) IVS,d (test code = 1.03 cm 0.6-0.9 A 9366617996) LVPWD,d (test code = 1.27 cm 0.60-1.19 A 7189855241) LV,s (test code = 2.56 cm 8518142890) LVOT Diam,S (test 2.01 cm code = 2734949709) LV BURGESS VOL (test 69.20 ml 46-106 code = 9127845711) LV SYS VOL (test 23.74 ml 14-42 code = 2284322891) MV Peak E Jonathan (test 1.20 m/s code = 7357572784) MV Peak A Jonathan (test 0.47 m/s code = 2865119035) E/A ratio (test code See_Comment A [Autom ated = 6208704322) message] The system which generated this result transmitted reference range : <=0.8. The reference range was not used to interpret this result as normal/abnormal . E wave decelartion See_Comment A [Automat ed time (test code = message] T he 7154210957) system which generated this result transmitted reference range : 200 msec. The reference range was not used to interpret this result as normal/abnormal . LV,d (test code = 3.98 cm 7314731495) IVS/LVPW,2D (test code = 0385040245) LV EF,2D (test code 73.32 % = 6924561966) LV FS Cube 2D (test code = 0795560439) LV FS Teich 2D (test code = 4625501329) LV SV Teich 2D (test 45.46 ml code = 6512845035) LV Vol s Teich PSAX 23.74 ml (test code = 1799184644) LVOT stroke volume 0.35 cm3 (test code = 9074231482) Left Atrium 4.52 cm See_Comment A [Automated Dimension Anterior message] The (test code = system which 0321368654) generated this result transmitted reference range : <=3.8. The reference range was not used to interpret this result as normal/abnormal . LA Vol MOD A4C (test 83.62 ml code = 2271348623) LA area s A4C (test 28.59 cm2 code = 5507256029) LA Ao Ratio Mmode (test code = 5001723888) LVOT area (test code 3.17 cm2 = 4374563960) LVOT Vmax (test code 0.62 m/s = 6248599224) AoV Mean PG (test See_Comment [Automate d code = 1422344106) message] The system which generated this result transmitted reference range : 20 mmHg. The reference range was not used to interpret this result as normal/abnormal . AoV Peak PG (test mmHg code = 1105077790) AV LVOT peak mmHg gradient (test code = 2439207743) AoV Area, Vmax (test 2.00 cm2 See_Comment [Autom ated code = 2330144721) message] The system which generated this result transmitted reference range : >=1.5. The reference range was not used to interpret this result as normal/abnormal . LVOT VTI (CM) (test 11.00 cm code = 3705074230) AoV Vmax (test code 0.98 m/s = 5235092215) AoV Vmn (test code = 0.65 m/s 1661729205) AoV Area, VTI (test 2.42 cm2 code = 7385948032) Velocity Ratio 0.63 m/s (V1/V2) (test code = 4689) MR peak grad (test mmHg code = 9495580718) MV stenosis pressure 31.00 ms See_Comment [Autom ated 1/2 time (test code message] The = 7128505667) system which generated this result transmitted reference range : <=150. The reference range was not used to interpret this result as normal/abnormal . MV E A ratio (test code = 8074749680) MV valve area p 1/2 7.10 cm2 method (test code = 2759187175) E prime lat (test code = 3239308693) E katherine sept (test code = 8084287777) RVSP (test code = See_Comment A [Automate d 5912222619) message] The system which generated this result transmitted reference range : 40.00 mmHg. The reference range was not used to interpret this result as normal/abnormal . RA pressure (test mmHg code = 0185282781) TR pk grad (test mmHg code = 2944576660) TR Vpeak (test code 3.51 m/s = 3874968513) RVSP (TR) (test code mmHg = 0691893660) RVOT Vmax (test code 0.46 m/s = 8171835662) PV Pk Grad (test See_Comment [Automated code = 2635365196) message] The system which generated this result transmitted reference range : 36 mmHg. The reference range was not used to interpret this result as normal/abnormal . RVOT pk grad (test mmHg code = 5143862062) PV VMAX (test code = 1.15 m/s See_Comment [Autom ated 0398849583) message] The system which generated this result transmitted reference range : <=3. The reference range was not used to interpret this result as normal/abnormal . Ao root annulus 2.82 cm (test code = 5991242104) Ao Root Diameter 3.23 cm See_Comment [Automated (test code = message] The 8087885841) system which generated this result transmitted reference range : <=3.99. The reference range was not used to interpret this result as normal/abnormal . Ao Root Diameter 3.23 cm (test code = 7387425825) Ascending aorta 3.69 cm (test code = 7501920424) Pred METS R1 (test code = 2745529702) Pred Exer Dur R1 (test code = 4004425401) MV Decel slope (test 11.26 m/s2 code = 1220078554) LV vol s cube 2D 16.83 ml (test code = 3587263925) LV vol d cube 2D 63.08 ml (test code = 1233840248) LV SV Cube 2D (test 46.25 ml code = 5574472930) Calc MPHR (test code bpm = 2687378985) 85 of MPHR (test code = 3389457740) MAX Pred HR (test code = 1340132367) LVOT mean grad (test mmHg code = 9146687508) Aov area Vmn (test 1.92 cm2 code = 5686360349) MV AE ratio (test code = 1315837981) LVOT Vmn (test code = 8472197720) MR Vmax (test code = 4.22 m/s 4726958232) AoV VTI (test code = 0.15 m 9273507458) LVOT VTI (test code 0.11 m = 1366244431) GUICHO (test code = GUICHO) Left Ventricle: [...] tachycardia. Lab Interpretation Abnormal (test code = 73450-0) [id number]00 Test Item Value Reference Interpretation Comments Range Urine culture Proteus qmcaymr90-1 A Specime n isolate (test cfu/mlThe InformationSpe [facility] code = 61421-9) performance Source: Urin eSpecimen characteristics of Site: Christopher an catch this assay on this isolatewere validated by the Microbiology Laboratory at [facility]. This source has not been approved by the U.S. Food and Drug Administration. The results are not intended to be used as the sole means for clinical diagnosis or patient management. The Microbiology Laboratory is authorized under the clinical Laboratory Improvement Amendments of 1988 (CLIA-88) to perform high complexity testing. Lab Abnormal Interpretation (test code = 03277-5) [facility] [Presence] in Respiratory specimen by DANIEL with probe pqwatqxov7597-06-19 00:41:02 Test Item Value Reference Range Interpretation Comments SARS-CoV-2 (COVID-19) RNA Not detected [Presence] in Respiratory specimen by DANIEL with probe detection (test code = 76366-6) Whether patient is employed in a Unknown healthcare setting (test code = 96008-3) Whether the patient has symptoms Unknown related to condition of interest (test code = 49850-7) Whether the patient was Unknown hospitalized for condition of interest (test code = 24265-3) Whether the patient was admitted Unknown to intensive care unit (ICU) for condition of interest (test code = 72516-6) Whether patient resides in a Unknown congregate care setting (test code = 99165-6) status (test code = Unknown 82720-6) Date and time of symptom onset Unknown (test code = 97005-9) [facility]- XR [id number] 10:28:00 [facility] : 1955 Sex: F Name: FREDDIE SAUCEDO [facility] : 1955 Age/S: 66 / F [address] [facility] [place] Unit #: [id number] Loc: [place] [address] Phys: Mic Aiken MD Acct: [id number] Dis Date: Status: [facility] PHONE #: [phone] Exam Date: 03/08/2022 0950 FAX #: Reason: ERCP EXAMS: CPT: [id number] XR ERCP 39803 Fluoro Time: 33 SEC DAP (Gy m2): [...] Hernandez M.D. CC: Mic Aiken MD; Antonella Carrillo MD PAGE 1 Signed Report Name: FREDDIE SAUCEDO : 1955 Age/S: 66 / F [address] [address] [place] Unit #: [id number] Loc: [place] [address] Phys: Mic Aiken MD Acct: [id number] Dis Date: Status: REG [facility] PHONE #: [phone] Exam Date: 03/08/2022 0921 FAX #: Reason: ERCP EXAMS: CPT: [id number] XR ERCP 20683 Fluoro Time: 33 SEC DAP (Gy m2): Air Kerma (mGy): (Continued) Technologist: Naila Davis, RT(R) Trnscb Date/Time: 03/08/2022 (1028) t.DIANNR.ANS4 Orig Print D/T: S: 03/08/2022 (1032) PAGE 2 Signed [id number] 08:51:00 Test Item Value Reference Range Interpretation Comments POTASSIUM (test code = K) 5.1 mmol/L 3.4-5.0 H CBC W/AUTO [id number] 08:15:00 Test Item Value Reference Range Interpretation [...] NO DIFF/SCN CRITERIA = MDIFF) BASIC METABOLIC [id number] 08:08:00 Test Item Value Reference Range Interpretation [...] 9.9 MG/DL 8.5-10.1 N COVID 19 INHOUSE [id number] 14:11:00 Test Item Value Reference Range Interpretation Comments COVID 19 INHOUSE AG NEGATIVE Negative Per manu facturer, (test code = negative result s should [id number]) be treated aspr esumptive and, if inconsi [...] symptoms co nsistent with COVID-19. CBC W/AUTO [id number] 14:00:00 Test Item Value Reference Range Interpretation [...] NT WITH AUTO DIFFERENTI AL. BASIC METABOLIC [id number] 13:32:00 Test Item Value Reference Range Interpretation [...] CA) 10.1 MG/DL 8.5-10.1 N HEPATIC FUNCTION [id number] 13:32:00 Test Item Value Reference Range Interpretation [...] 222 Unit/L 45-117 H code = ALKP) [id number] 13:32:00 Test Item Value Reference Range Interpretation Comments LIPASE (test code = LIP) 109 Unit/L 114-286 L [id number] 18:01:00 Test Item Value Reference Range Interpretation Comments SURGICAL (test code = SR) RUN DATE: 03/01/22 [place] Iverson Mcrae [facility] PAGE 1 RUN TIME: 180 Specimen Inquiry RUN USER: INTERFACE LIANNA ENT: FREDDIE SAUCEDO LOC: CHIO #: [id number] AGE/SX: 66/F [facility]OM: [facility]02[facility]27[facility]: Adam King MD : [birth year] BED: DIS: STATUS: [facility] TLOC: SPEC #: [id number] RECD: 02/27/22 STATUS: YULIA PILLAI #: [id number] LUZ: 02/27/[address] [facility] [address]: Adam King MD ENTERED: 02/27/22 SP TYPE: SURGICAL OTHR DR: Antonella Carrillo MD ORDERED: 68030/2, 94879, 86807, 54226, ANATOMIC SPEC, SPECIMEN TRACK COPIES TO: Antonella Carrillo MD [address] [place] [address] Adam King MD [address] [place] [address] PROCEDURES: 25185 (02/27/22-1153) 73427 (03/01/22-1650) 12958 (03/01/22) 86150 (03/01/22) SPECIMEN TRACK (02/27/22) TISSUES: A. GASTRIC [...] internal) control is negative (staining performed at [facility]). CONTINUED ON NEXT PAGE RUN DATE: 03/01/22 [facility] PAGE 2 RUN TIME: 1801 Specimen Inquiry RUN USER: INTERFACE SPEC #: [id number] PATIENT: FREDDIE SAUCEDO #[id number] (Continued) ------- GROSS DESCRIPTION A. Antrum and body biopsy. It consists of 4 tissue fragments measuring 2-5 mm. All as A1. B. Distal esophageal biopsy. It consists of 2 tissue fragments measuring 3 mm each. Allas B1. Technical component performed at [place],[address], [place] [address] Unless gross only, the diagnosis is based [...] diagnosis section. ---- Signed SIGNATURE ON FILE ShaunObdulio 03/01/22 1801 END OF REPORT BASIC METABOLIC [id number] 08:13:00 Test Item Value Reference Range Interpretation [...] MG/DL 8.5-10.1 N - XR CHEST 2 [id number] 13:28:00 [facility] : 1955 Sex: F Name: FREDDIE SAUCEDO [facility] : 1955 Age/S: 66 / F [address] [address] [place] Unit #: [id number] Loc: [place] [address] Phys: Adam King MD Acct: [id number] Dis Date: Status: PRE SDC PHONE #: [phone] Exam Date: 02/24/2022 1253 FAX #: Reason: PRE OP EXAMS: CPT: [id number] XR CHEST 2 V 14933 Fluoro Time: DAP (Gy m2): Air Kerma (mGy): Chest 2 views 02/24/2022 1:27 PM CLINICAL HISTORY: Preop COMPARISON: None available LOCATION: W1 IMPRESSION: There is elevation of the right hemidiaphragm.Bibasilar opacities suggest atelectasis. Pneumonia should be excluded clinically. Cardiomediastinal contours are within normal limits. The central vasculature is not engorged. A tunneled left hemodialysis catheter is present. There are chronic appearing degenerative changes in the skeleton. at 1328 Reported and signed by: Kristian Sidhu M.D. CC: Antonella Carrillo MD; Adam King MD PAGE 1 Signed Report Name: FREDDIE SAUCEDO [facility] : 1955 Age/S: 66 / F [address] [address] [place] Unit #: [id number] Loc: [place] Phys: Adam King MD Acct: [id number] Dis Date: Status: PRE SDC PHONE #: [phone] Exam Date: 02/24/2022 1253 FAX #: Reason: PRE OP EXAMS: CPT: [id number] XR CHEST 2 V 88722 Fluoro Time:DAP (Gy m2): Air Kerma (mGy): (Continued) Technologist: Pryia Lemos RT (R)(CT) Trnscb Date/Time: 02/24/2022 (1328) t.DIANNR.TS14 Orig Print D/T: S: 02/24/2022 (4063) PAGE 2 Signed ReportBASIC METABOLIC [id number] 12:55:00 Test Item Value Reference Range Interpretation [...] 10.5 MG/DL 8.5-10.1 H COVID 19 INHOUSE [id number] 12:52:00 Test Item Value Reference Range Interpretation Comments COVID 19 INHOUSE AG NEGATIVE Negative Per manu facturer, (test code = negative result s should [id number]) be treated aspr esumptive and, if inconsi [...] and symptoms co nsistent with COVID-19. PROTHROMBIN [id number] 12:44:00 Test Item Value Reference Range Interpretation Comments PT PATIENT (test 12.2 SECONDS 9.3-12.9 N code = PTP) INTERNATIONAL NORMAL 1.07 INR Unit 0.8-1.2 N TARG ET INR BY RATIO (test code = INDICATIO [...] (to prevent recurrent infar ct). THROMBOPLASTIN TIME [id number] 12:44:00 Test Item Value Reference Range Interpretation Comments THROMBOPLASTIN TIME PARTIAL 36.2 SECONDS 26-35 H (test code = PTT) CBC W/AUTO [id number] 12:43:00 Test Item Value Reference Range Interpretation [...] in Respiratory specimen by DANIEL with probe [id number] 23:10:10 Test Item Value Reference Range Interpretation Comments SARS coronavirus RNA [Presence] Not detected in Isolate by DANIEL with probe detection (test code = 33777-3) Whether patient is employed in a No healthcare setting (test code = 58312-2) Whether the patient has symptoms Yes related to condition of interest (test code = 20263-6) Whether the patient was No hospitalized for condition of interest (test code = 05695-1) Whether the patient was admitted No to intensive care unit (ICU) for condition of interest (test code = 38592-9) Whether patient resides in a No congregate care setting (test code = 28863-9) status (test code = No 35969-1) Date and time of symptom onset Unknown (test code = 38776-5) [facility] (COVID-19) RNA [Presence] in Respiratory specimen by DANIEL with probe [id number] 23:10:10 Test Item Value Reference Range Interpretation Comments SARS-CoV-2 (COVID-19) RNA Not detected [Presence] in Respiratory specimen by DANIEL with probe detection (test code = 53206-4) Whether patient is employed in a No healthcare setting (test code = 19683-7) Whether the patient has symptoms Yes related to condition of interest (test code = 19611-0) Whether the patient was No hospitalized for condition of interest (test code = 95356-2) Whether the patient was admitted No to intensive care unit (ICU) for condition of interest (test code = 49364-3) Whether patient resides in a No congregate care setting (test code = 63527-0) status (test code = No 69446-8) Date and time of symptom onset Unknown (test code = 17571-5) [facility]-CoV-[facility] (COVID-19) RNA [Presence] in Respiratory specimen by DANIEL with probe [id number] 22:34:30 Test Item Value Reference Range Interpretation Comments SARS-CoV-2 (COVID-19) RNA Not detected Not-Detected [Presence] in Respiratory specimen by DANIEL with probe detection (test code = 10424-8) Whether patient is employed in a healthcare setting (test code = 79331-3) Whether the patient has symptoms related to condition of interest (test code = 14992-5) Patient was hospitalized because of this condition (test code = 34383-5) Whether the patient was admitted to intensive care unit (ICU) for condition of interest (test code = 80895-3) Whether patient resides in a congregate care setting (test code = 96372-3) [facility]-CoV-2 (COVID-19) RNA [Presence] in Respiratory specimen by DANIEL with probe [id number] 22:35:42 Test Item Value Reference Range Interpretation Comments SARS-CoV-2 (COVID-19) RNA Not detected Not-Detected [Presence] in Respiratory specimen by DANIEL with probe detection (test code = 15361-9) Whether patient is employed in a healthcare setting (test code = 62887-3) Whether the patient has symptoms related to condition of interest (test code = 35259-3) Patient was hospitalized because of this condition (test code = 54701-6) Whether the patient was admitted to intensive care unit (ICU) for condition of interest (test code = 31168-1) Whether patient resides in a congregate care setting (test code = 04251-2) [facility]-CoV-2 (COVID-19) RNA [Presence] in Respiratory specimen by DANIEL with probe [id number] 22:46:10 Test Item Value Reference Range Interpretation Comments SARS-CoV-2 (COVID-19) RNA Not detected Not-Detected [Presence] in Respiratory specimen by DANIEL with probe detection (test code = 49044-5) Whether patient is employed in a healthcare setting (test code = 00109-5) Whether the patient has symptoms related to condition of interest (test code = 98626-6) Patient was hospitalized because of this condition (test code = 97526-5) Whether the patient was admitted to intensive care unit (ICU) for condition of interest (test code = 42237-6) Whether patient resides in a congregate care setting (test code = 90876-9) [facility]-CoV-[facility] (COVID-19) RNA [Presence] in Respiratory specimen by DANIEL with probe [id number] 01:54:24 Test Item Value Reference Range Interpretation Comments SARS-CoV-2 (COVID-19) RNA Not detected Not-Detected [Presence] in Respiratory specimen by DANIEL with probe detection (test code = 87706-3) Whether patient is employed in a healthcare setting (test code = 36367-6) Whether the patient has symptoms related to condition of interest (test code = 91763-1) Patient was hospitalized because of this condition (test code = 90799-4) Whether the patient was admitted to intensive care unit (ICU) for condition of interest (test code = 98371-9) Whether patient resides in a congregate care setting (test code = 00674-1) [facility]N-7 (COVID-19) RNA [Presence] in Respiratory specimen by DANIEL with probe ndihzlweg5954-01-52 21:44:06 Test Item Value Reference Range Interpretation Comments SARS-CoV-2 (COVID-19) RNA Not detected Not-Detected [Presence] in Respiratory specimen by DANIEL with probe detection (test code = 70228-9) Whether patient is employed in a healthcare setting (test code = 04598-5) Whether the patient has symptoms related to condition of interest (test code = 87791-6) Patient was hospitalized because of this condition (test code = 39922-8) Whether the patient was admitted to intensive care unit (ICU) for condition of interest (test code = 25587-5) Whether patient resides in a congregate care setting (test code = 11699-0) [facility]-CoV-2 (COVID-19) RNA [Presence] in Respiratory specimen by DANIEL with probe [id number] 00:36:59 Test Item Value Reference Range Interpretation Comments SARS-CoV-2 (COVID-19) RNA Not detected Not-Detected [Presence] in Respiratory specimen by DANIEL with probe detection (test code = 94693-2) [facility]-CoV-2 (COVID-19) RNA [Presence] in Respiratory specimen by DANIEL with probe [id number] 17:35:35 Test Item Value Reference Range Interpretation Comments SARS-CoV-2 (COVID-19) RNA Not detected Not-Detected [Presence] in Respiratory specimen by DANIEL with probe detection (test code = 66542-1) [facility]-CoV-2 (COVID-19) RNA [Presence] in Respiratory specimen by DANIEL with probe [id number] 18:03:30 Test Item Value Reference Range Interpretation Comments SARS-CoV-2 (COVID-19) RNA Not detected Not-Detected [Presence] in Respiratory specimen by DANIEL with probe detection (test code = 33757-4) [facility]-CoV-2 (COVID-19) RNA [Presence] in Respiratory specimen by DANIEL with probe eiidprkcn4273-72-43 10:06:03 Test Item Value Reference Range Interpretation Comments SARS-CoV-2 (COVID-19) RNA Not detected Not-Detected [Presence] in Respiratory specimen by DANIEL with probe detection (test code = 20629-5) [facility]-CoV-2 (COVID-19) RNA [Presence] in Respiratory specimen by DANIEL with probe aituxeulc9614-01-30 05:11:58 Test Item Value Reference Range Interpretation Comments SARS-CoV-2 (COVID-19) RNA Not detected Not-Detected [Presence] in Respiratory specimen by DANIEL with probe detection (test code = 96275-2) [facility] ([facility] RNA [Presence] in Respiratory specimen by DANIEL with probe [id number] 03:34:16 Test Item Value Reference Range Interpretation Comments SARS-CoV-2 (COVID-19) RNA Not detected Not-Detected [Presence] in Respiratory specimen by DANIEL with probe detection (test code = 83609-5) [facility] (COVID-19) RNA [Presence] in Respiratory specimen by DANIEL with probe vjrsfdfug6578-65-31 10:06:41 Test Item Value Reference Range Interpretation Comments SARS-CoV-2 (COVID-19) RNA Not detected Not-Detected [Presence] in Respiratory specimen by DANIEL with probe detection (test code = 43348-1) [facility] 12:[facility] Test Item Value Reference Range Interpretation Comments Chol (test code = Chol) 129 [facility] HospitalEmwgconDMYSRT6765-83-36 12:33:00 Test Item Value Reference Range Interpretation Comments HDL (test code = HDL) 37 [facility] HospitalPxbggevJCAYUN8236-02-22 12:33:00 Test Item Value Reference Range Interpretation Comments Trig (test code = Trig) 76 [facility] HospitalHnezgvcOQITJS3663-45-02 12:33:00 Test Item Value Reference Range Interpretation Comments LDL (Calculated) (test code = LDL 76 (Calculated)) [facility] HospitalEkwdabaJSBCAN6718-32-89 12:33:00 Test Item Value Reference Range Interpretation Comments CHD Risk (test code = CHD Risk) 3.5 [facility]OyoyhraKMLVXJ8413-34-55 12:33:00 Test Item Value Reference Range Interpretation Comments Non HDL Chol (test code = Non HDL Chol) 92 [facility] HospitalZnmzksxGRCCCD1611-16-47 12:33:00 Test Item Value Reference Range Interpretation Comments Chol (test code = Chol) 129 [facility] HospitalAbwijrqYPVAOU7402-40-29 12:33:00 Test Item Value Reference Range Interpretation Comments HDL (test code = HDL) 37 [facility] AntonioCvetvvnLFBOQW1358-75-19 12:33:00 Test Item Value Reference Range Interpretation Comments Trig (test code = Trig) 76 [facility] HospitalLqczqtcXSEJRL2836-72-80 12:33:00 Test Item Value Reference Range Interpretation Comments LDL (Calculated) (test code = LDL 76 (Calculated)) [facility] HospitalSxtfakaEBYWVW2426-85-99 12:33:00 Test Item Value Reference Range Interpretation Comments CHD Risk (test code = CHD Risk) 3.5 [facility] HospitalMndwkpjFUQCJC3078-01-33 12:33:00 Test Item Value Reference Range Interpretation Comments Non HDL Chol (test code = Non HDL Chol) 92 [facility] HospitalWejkpecSYNEWK3685-94-83 12:33:00 Test Item Value Reference Range Interpretation Comments Chol (test code = Chol) 129 [facility] HospitalSbjoxtbURSJFU8184-19-20 12:33:00 Test Item Value Reference Range Interpretation Comments HDL (test code = HDL) 37 [facility] HospitalUiljyxfULBFWF2967-16-06 12:33:00 Test Item Value Reference Range Interpretation Comments Trig (test code = Trig) 76 [facility] HospitalIqckigoZXZJZI4065-40-65 12:33:00 Test Item Value Reference Range Interpretation Comments LDL (Calculated) (test code = LDL 76 (Calculated)) [facility] HospitalFquffawZDOHDG1872-27-94 12:33:00 Test Item Value Reference Range Interpretation Comments CHD Risk (test code = CHD Risk) 3.5 [facility] AntonioUmcrktrKJZCEN2684-06-98 12:33:00 Test Item Value Reference Range Interpretation Comments Non HDL Chol (test code = Non HDL Chol) 92 [facility] HospitalLuucuoqMCZMEJ6333-92-43 12:33:00 Test Item Value Reference Range Interpretation Comments Chol (test code = Chol) 129 [facility] HospitalSkaihavUCQVBM8236-01-43 12:33:00 Test Item Value Reference Range Interpretation Comments HDL (test code = HDL) 37 [facility] HospitalGhimtkpVXZDLF2842-73-43 12:33:00 Test Item Value Reference Range Interpretation Comments Trig (test code = Trig) 76 [facility] HospitalYvfiolsATGJNK9852-93-80 12:33:00 Test Item Value Reference Range Interpretation Comments LDL (Calculated) (test code = LDL 76 (Calculated)) [facility] HospitalWoroyniOKQBUW6737-03-64 12:33:00 Test Item Value Reference Range Interpretation Comments Chol (test code = Chol) 129 [facility] HospitalKbhllmhVREMSF8727-92-16 12:33:00 Test Item Value Reference Range Interpretation Comments CHD Risk (test code = CHD Risk) 3.5 [facility] HospitalAonzrrqAZPKQM5316-85-23 12:33:00 Test Item Value Reference Range Interpretation Comments Non HDL Chol (test code = Non HDL Chol) 92 [facility] HospitalPibjmqhQTMVTP5934-39-41 12:33:00 Test Item Value Reference Range Interpretation Comments HDL (test code = HDL) 37 [facility] HospitalHwsoghaTXBYJA8645-75-83 12:33:00 Test Item Value Reference Range Interpretation Comments Trig (test code = Trig) 76 [facility] HospitalNwseopoCMRCGA9484-38-94 12:33:00 Test Item Value Reference Range Interpretation Comments LDL (Calculated) (test code = LDL 76 (Calculated)) [facility] HospitalJzzgtnpKOYXWC5100-45-56 12:33:00 Test Item Value Reference Range Interpretation Comments CHD Risk (test code = CHD Risk) 3.5 [facility] HospitalJdgkumcPVUOZO9630-32-11 12:33:00 Test Item Value Reference Range Interpretation Comments Non HDL Chol (test code = Non HDL Chol) 92 [facility] HospitalSkkzfftKEPGIQ0648-69-76 12:33:00 Test Item Value Reference Range Interpretation Comments Chol (test code = Chol) 129 [facility] HospitalLzvyxkwDXFAUH8687-27-68 12:33:00 Test Item Value Reference Range Interpretation Comments HDL (test code = HDL) 37 [facility] HospitalLguvurlFAMIHF1434-67-89 12:33:00 Test Item Value Reference Range Interpretation Comments Trig (test code = Trig) 76 [facility] HospitalDxwtvnrILPQWG0537-44-13 12:33:00 Test Item Value Reference Range Interpretation Comments LDL (Calculated) (test code = LDL 76 (Calculated)) [facility] HospitalFubtokoWAZNUG3548-98-92 12:33:00 Test Item Value Reference Range Interpretation Comments CHD Risk (test code = CHD Risk) 3.5 [facility] HospitalPtktvhdTSPPNK5170-88-37 12:33:00 Test Item Value Reference Range Interpretation Comments Non HDL Chol (test code = Non HDL Chol) 92 [place] [address]-10-14 12:33:00 Test Item Value Reference Range Interpretation Comments Chol (test code = Chol) 129 [facility] HospitalVjypfzjMBOAWH7322-48-37 12:33:00 Test Item Value Reference Range Interpretation Comments HDL (test code = HDL) 37 [facility] AntonioQetaxffBRPZJC8480-79-50 12:33:00 Test Item Value Reference Range Interpretation Comments Trig (test code = Trig) 76 [place] [address]-10-14 12:33:00 Test Item Value Reference Range Interpretation Comments LDL (Calculated) (test code = LDL 76 (Calculated)) [place] [address]-10-14 12:33:00 Test Item Value Reference Range Interpretation Comments CHD Risk (test code = CHD Risk) 3.5 [place] 628890-10-14 12:33:00 Test Item Value Reference Range Interpretation Comments Non HDL Chol (test code = Non HDL Chol) 92 [facility] WLEHQ7484-03-80 14:47:00 Test Item Value Reference Range Interpretation Comments Vitamin D, 25-OH, Total (test code = 37 30-100 Vitamin D, 25-OH, Total) [facility] HUMIW2482-22-00 14:47:00 Test Item Value Reference Range Interpretation Comments U Creat mg/dL (test code = U Creat 114 20-275 mg/dL) [facility] MFUHZ6631-37-27 14:47:00 Test Item Value Reference Range Interpretation Comments U Prot/Creat (test code = U Prot/Creat) 430 21-161 [facility] BTSFX0426-66-19 14:47:00 Test Item Value Reference Range Interpretation Comments U Prot/Creat (test code = U 0.430 1 0.021-0.161 Prot/Creat) [facility] RUXUU6244-51-78 14:47:00 Test Item Value Reference Range Interpretation Comments U Protein (test code = U Protein) 49 5-24 [facility] TXTIB8914-93-23 14:47:00 Test Item Value Reference Range Interpretation Comments Glucose Lvl (test code = Glucose Lvl) 103 65-99 [place] 577540-08-06 14:47:00 Test Item Value Reference Range Interpretation Comments BUN (test code = BUN) 24 7-25 [place] 577540-08-06 14:47:00 Test Item Value Reference Range Interpretation Comments Creatinine Lvl (test code = Creatinine 1.32 0.50-0.99 Lvl) [place] 577540-08-06 14:47:00 Test Item Value Reference Range Interpretation Comments eGFR NON-AFR. BARBADIAN (test code = 43 eGFR NON-AFR. BARBADIAN) [facility]2020-08-06 14:47:00 Test Item Value Reference Range Interpretation Comments eGFR (test code = eGFR 50 ) [place] 577540-08-06 14:47:00 Test Item Value Reference Range Interpretation Comments B/C Ratio (test code = B/C Ratio) 18 6-22 [place] [address]-08-06 14:47:00 Test Item Value Reference Range Interpretation Comments Sodium Lvl (test code = Sodium Lvl) 138 135-146 [facility]2020-08-06 14:47:00 Test Item Value Reference Range Interpretation Comments Potassium Lvl (test code = Potassium 4.4 3.5-5.3 Lvl) [facility]2020-08-06 14:47:00 Test Item Value Reference Range Interpretation Comments Chloride Lvl (test code = Chloride Lvl) 102 98-110 [place] 577540-08-06 14:47:00 Test Item Value Reference Range Interpretation Comments CO2 (test code = CO2) 30 20-32 [place] 577540-08-06 14:47:00 Test Item Value Reference Range Interpretation Comments Calcium Lvl (test code = Calcium Lvl) 9.4 8.6-10.4 [place] 577540-08-06 14:47:00 Test Item Value Reference Range Interpretation Comments Phosphorus (test code = Phosphorus) 4.8 2.5-4.5 [place] 577540-08-06 14:47:00 Test Item Value Reference Range Interpretation Comments Albumin Lvl (test code = Albumin Lvl) 3.9 3.6-5.1 [facility]qsdypoTRUNBZDWSN9915-89-37 14:47:00 Test Item Value Reference Range Interpretation Comments Plt Count Estimated (test code = DECREASED Plt Count Estimated) [facility] CypressUyfchixVFVOLGQPSW9070-10-15 14:47:00 Test Item Value Reference Range Interpretation Comments WBC X 10x3 (test code = WBC X 10x3) 7.2 3.8-10.8 [place] [address]-08-06 14:47:00 Test Item Value Reference Range Interpretation Comments RBC X 10x6 (test code = RBC X 10x6) 3.71 3.80-5.10 [place] 546230-08-06 14:47:00 Test Item Value Reference Range Interpretation Comments Hgb (test code = Hgb) 10.7 11.7-15.5 [place] [address]-08-06 14:47:00 Test Item Value Reference Range Interpretation Comments Hct (test code = Hct) 33.9 35.0-45.0 [place] [address]-08-06 14:47:00 Test Item Value Reference Range Interpretation Comments MCV (test code = MCV) 91.4 80.0-100.0 [place] [address]-08-06 14:47:00 Test Item Value Reference Range Interpretation Comments MCH (test code = MCH) 28.8 pg 27.0-33.0 [facility] CypressAztpbxvCTOAHIHNTE1093-82-41 14:47:00 Test Item Value Reference Range Interpretation Comments MCHC (test code = MCHC) 31.6 32.0-36.0 [facility] CypressVmtmgoxERANLACBNM1966-54-29 14:47:00 Test Item Value Reference Range Interpretation Comments RDW (test code = RDW) 13.9 11.0-15.0 [place] [address]-08-06 14:47:00 Test Item Value Reference Range Interpretation Comments Platelet (test code = Platelet) 110 140-400 [facility] CypressEocmjoiQDGHBCJUMH4673-54-15 14:47:00 Test Item Value Reference Range Interpretation Comments MPV (test code = MPV) 11.7 7.5-12.5 [facility] CypressHpsuwwrMFVXAJCINB2923-43-34 14:47:00 Test Item Value Reference Range Interpretation Comments Neutrophils # (test code = Neutrophils 5414 3388-1990 #) [facility] CypressRffetjcNCUYIHAAZZ8779-33-02 14:47:00 Test Item Value Reference Range Interpretation Comments Lymphocytes # (test code = Lymphocytes 1853 434-2160 #) [facility] AntonioWvyabnlSCJEUVXQPL9177-29-52 14:47:00 Test Item Value Reference Range Interpretation Comments Monocytes # (test code = Monocytes #) 461 200-950 [facility]ZdydhnhUPOEAXOAXC7135-65-64 14:47:00 Test Item Value Reference Range Interpretation Comments Eosinophils # (test code = Eosinophils 122 15-500 #) [facility] CenterBevlgexCYBWIIGCSY0772-33-75 14:47:00 Test Item Value Reference Range Interpretation Comments Basophils # (test code 50 See_Comment [Aut omated message] The = Basophils #) system which generated this result tra nsmitted reference range : <=200. The reference r edy was not used to int erpret this result as normal/abnormal . [facility] CenterAftiybcXRGIWEKMOR9474-51-71 14:47:00 Test Item Value Reference Range Interpretation Comments Segs (test code = Segs) 75.2 [facility] CenterZenrbukAINGMVBLEJ6526-66-89 14:47:00 Test Item Value Reference Range Interpretation Comments Lymphocytes (test code = Lymphocytes) 16.0 [facility] CenterFigiwehWIFLZUDWSV8219-75-01 14:47:00 Test Item Value Reference Range Interpretation Comments Monocytes (test code = Monocytes) 6.4 [facility] AntonioDwyglxvPUNMJJHIFU1481-51-40 14:47:00 Test Item Value Reference Range Interpretation Comments Eosinophils (test code = Eosinophils) 1.7 [facility] AntonioEqcxfbeFRZKHERXMJ8621-45-73 14:47:00 Test Item Value Reference Range Interpretation Comments Basophils (test code = Basophils) 0.7 [facility] [id number] 14:47:00 Test Item Value Reference Range Interpretation Comments Result 2 (Urine Culture) See Result Comment (test code = Result 2 (Urine Culture)) [facility] AND [id number] 14:47:00 Test Item Value Reference Range Interpretation Comments UA Color (test code = UA Color) YELLOW [facility] [id number] 14:47:00 Test Item Value Reference Range Interpretation Comments UA Turbidity (test code = UA CLOUDY Turbidity) [facility]annB[facility]ST[facility] [id number] 14:47:00 Test Item Value Reference Range Interpretation Comments UA Spec Grav (test code = UA Spec 1.017 1 1.001-1.035 Grav) [facility] [id number] 14:47:00 Test Item Value Reference Range Interpretation Comments UA pH (test code = UA pH) 5.5 1 5.0-8.0 [facility] [id number] 14:47:00 Test Item Value Reference Range Interpretation Comments UA Glucose (test code = UA Glucose) NEGATIVE [facility] [id number] 14:47:00 Test Item Value Reference Range Interpretation Comments UA Bili (test code = UA Bili) NEGATIVE [facility] [id number] 14:47:00 Test Item Value Reference Range Interpretation Comments UA Ketones (test code = UA Ketones) NEGATIVE [facility] [id number] 14:47:00 Test Item Value Reference Range Interpretation Comments UA Blood (test code = UA Blood) 1+ [facility] [id number] 14:47:00 Test Item Value Reference Range Interpretation Comments UA Protein (test code = UA Protein) 1+ [facility] [id number] 14:47:00 Test Item Value Reference Range Interpretation Comments UA Nitrite (test code = UA Nitrite) POSITIVE [facility] [id number] 14:47:00 Test Item Value Reference Range Interpretation Comments UA Leuk Est (test code = UA Leuk Est) 2+ [facility] [id number] 14:47:00 Test Item Value Reference Range Interpretation Comments UA WBC (test code = UA WBC) > OR = 60 [facility] [id number] 14:47:00 Test Item Value Reference Range Interpretation Comments UA RBC (test code = UA RBC) 0-2 [facility] [id number] 14:47:00 Test Item Value Reference Range Interpretation Comments UA Sq Epi (test code = UA Sq Epi) NONE SEEN [facility] [id number] 14:47:00 Test Item Value Reference Range Interpretation Comments UA Bacteria (test code = UA Bacteria) MANY [facility] [id number] 14:47:00 Test Item Value Reference Range Interpretation Comments UA Hyal Cast (test code = UA Hyal NONE SEEN Cast) [facility] [id number] 14:47:00 Test Item Value Reference Range Interpretation Comments UA Reflex (test code CULTURE INDICATED - = UA Reflex) RESULTS TO FOLLOW [facility] [id number] 14:47:00 Test Item Value Reference Range Interpretation Comments U Creat mg/dL (test code = U Creat 114 20-275 mg/dL) [place] 489000-08-06 14:47:00 Test Item Value Reference Range Interpretation Comments U Alb (test code = U Alb) 16.7 [place] 489000-08-06 14:47:00 Test Item Value Reference Range Interpretation Comments U Alb/Crea (test code = U Alb/Crea) 146 [facility]2020-08-06 14:47:00 Test Item Value Reference Range Interpretation Comments Vitamin D, 25-OH, Total (test code = 37 30-100 Vitamin D, 25-OH, Total) [place] 577540-08-06 14:47:00 Test Item Value Reference Range Interpretation Comments U Creat mg/dL (test code = U Creat 114 20-275 mg/dL) [place] 577540-08-06 14:47:00 Test Item Value Reference Range Interpretation Comments U Prot/Creat (test code = U Prot/Creat) 430 21-161 [facility]2020-08-06 14:47:00 Test Item Value Reference Range Interpretation Comments U Prot/Creat (test code = U 0.430 1 0.021-0.161 Prot/Creat) [facility]2020-08-06 14:47:00 Test Item Value Reference Range Interpretation Comments U Protein (test code = U Protein) 49 5-24 [facility]2020-08-06 14:47:00 Test Item Value Reference Range Interpretation Comments Glucose Lvl (test code = Glucose Lvl) 103 65-99 [place] 577540-08-06 14:47:00 Test Item Value Reference Range Interpretation Comments BUN (test code = BUN) 24 7-25 [facility]2020-08-06 14:47:00 Test Item Value Reference Range Interpretation Comments Creatinine Lvl (test code = Creatinine 1.32 0.50-0.99 Lvl) [place] 577540-08-06 14:47:00 Test Item Value Reference Range Interpretation Comments eGFR NON-AFR. BARBADIAN (test code = 43 eGFR NON-AFR. BARBADIAN) [place] 577540-08-06 14:47:00 Test Item Value Reference Range Interpretation Comments eGFR (test code = eGFR 50 ) [place] 577540-08-06 14:47:00 Test Item Value Reference Range Interpretation Comments B/C Ratio (test code = B/C Ratio) 18 6-22 [place] 577540-08-06 14:47:00 Test Item Value Reference Range Interpretation Comments Sodium Lvl (test code = Sodium Lvl) 138 135-146 [place] 577540-08-06 14:47:00 Test Item Value Reference Range Interpretation Comments Potassium Lvl (test code = Potassium 4.4 3.5-5.3 Lvl) [place] 577540-08-06 14:47:00 Test Item Value Reference Range Interpretation Comments Chloride Lvl (test code = Chloride Lvl) 102 98-110 [place] 577540-08-06 14:47:00 Test Item Value Reference Range Interpretation Comments CO2 (test code = CO2) 30 20-32 [place] 577540-08-06 14:47:00 Test Item Value Reference Range Interpretation Comments Calcium Lvl (test code = Calcium Lvl) 9.4 8.6-10.4 [place] 577540-08-06 14:47:00 Test Item Value Reference Range Interpretation Comments Phosphorus (test code = Phosphorus) 4.8 2.5-4.5 [place] 577540-08-06 14:47:00 Test Item Value Reference Range Interpretation Comments Albumin Lvl (test code = Albumin Lvl) 3.9 3.6-5.1 [place] 546230-08-06 14:47:00 Test Item Value Reference Range Interpretation Comments Plt Count Estimated (test code = DECREASED Plt Count Estimated) [place] 546230-08-06 14:47:00 Test Item Value Reference Range Interpretation Comments WBC X 10x3 (test code = WBC X 10x3) 7.2 3.8-10.8 [place] 546230-08-06 14:47:00 Test Item Value Reference Range Interpretation Comments RBC X 10x6 (test code = RBC X 10x6) 3.71 3.80-5.10 [place] 546230-08-06 14:47:00 Test Item Value Reference Range Interpretation Comments Hgb (test code = Hgb) 10.7 11.7-15.5 [facility] CypressFxvnljcUDQBUPZPIR7305-59-59 14:47:00 Test Item Value Reference Range Interpretation Comments Hct (test code = Hct) 33.9 35.0-45.0 [facility] CypressIphlkriWVTOJQMHPY9528-03-23 14:47:00 Test Item Value Reference Range Interpretation Comments MCV (test code = MCV) 91.4 80.0-100.0 [facility] CypressJqmnmugOFCMFJPBIO6320-14-89 14:47:00 Test Item Value Reference Range Interpretation Comments MCH (test code = MCH) 28.8 pg 27.0-33.0 [facility] CypressRyyncqtHPYLLVVJIH4485-64-14 14:47:00 Test Item Value Reference Range Interpretation Comments MCHC (test code = MCHC) 31.6 32.0-36.0 [facility] CypressFbhdzkvSNUYNBKFAG1797-33-02 14:47:00 Test Item Value Reference Range Interpretation Comments RDW (test code = RDW) 13.9 11.0-15.0 [facility] CypressNvvoysgUIEBGXNAVW8856-90-57 14:47:00 Test Item Value Reference Range Interpretation Comments Platelet (test code = Platelet) 110 140-400 [facility] CypressViziblzIMLDLBLBSH8296-54-43 14:47:00 Test Item Value Reference Range Interpretation Comments MPV (test code = MPV) 11.7 7.5-12.5 [facility] CypressFixcfdfAJFZMIRYYO1477-13-91 14:47:00 Test Item Value Reference Range Interpretation Comments Neutrophils # (test code = Neutrophils 5414 9282-1542 #) [facility] CypressOnahdarGYTTGMDZIW7866-79-49 14:47:00 Test Item Value Reference Range Interpretation Comments Lymphocytes # (test code = Lymphocytes 2870 946-2503 #) [facility] CypressQaxlcleYYUOLKQVTO0491-25-36 14:47:00 Test Item Value Reference Range Interpretation Comments Monocytes # (test code = Monocytes #) 461 200-950 [facility] CypressSavzdxxHVRYAHMZSG8593-34-93 14:47:00 Test Item Value Reference Range Interpretation Comments Eosinophils # (test code = Eosinophils 122 15-500 #) [facility] CypressTnbwgqaLBBPJRYASN2485-52-54 14:47:00 Test Item Value Reference Range Interpretation Comments Basophils # (test code 50 See_Comment [Aut omated message] The = Basophils #) system which generated this result tra nsmitted reference range : <=200. The reference r edy was not used to int erpret this result as normal/abnormal . [facility] AntonioIgmggudEVGKEFCMSK6718-57-33 14:47:00 Test Item Value Reference Range Interpretation Comments Segs (test code = Segs) 75.2 [facility] CenterEpbanbbSHLFTHHYFU0194-33-29 14:47:00 Test Item Value Reference Range Interpretation Comments Lymphocytes (test code = Lymphocytes) 16.0 [facility] CenterGpgksanMNOCFOXGZI0941-44-61 14:47:00 Test Item Value Reference Range Interpretation Comments Monocytes (test code = Monocytes) 6.4 [facility] CenterUawdrbdOTSDKCSSKU6015-50-87 14:47:00 Test Item Value Reference Range Interpretation Comments Eosinophils (test code = Eosinophils) 1.7 [facility] CenterFvgudgxPZYCDXZCJM0482-98-31 14:47:00 Test Item Value Reference Range Interpretation Comments Basophils (test code = Basophils) 0.7 [facility] EEPRKDL7909-69-25 14:47:00 Test Item Value Reference Range Interpretation Comments Result 2 (Urine Culture) See Result Comment (test code = Result 2 (Urine Culture)) [facility] AND [id number] 14:47:00 Test Item Value Reference Range Interpretation Comments UA Color (test code = UA Color) YELLOW [facility] AND [id number] 14:47:00 Test Item Value Reference Range Interpretation Comments UA Turbidity (test code = UA CLOUDY Turbidity) [facility] AND KYFLU3341-90-03 14:47:00 Test Item Value Reference Range Interpretation Comments UA Spec Grav (test code = UA Spec 1.017 1 1.001-1.035 Grav) [facility] AND [id number] 14:47:00 Test Item Value Reference Range Interpretation Comments UA pH (test code = UA pH) 5.5 1 5.0-8.0 [facility] AND [id number] 14:47:00 Test Item Value Reference Range Interpretation Comments UA Glucose (test code = UA Glucose) NEGATIVE [facility] AND [id number] 14:47:00 Test Item Value Reference Range Interpretation Comments UA Bili (test code = UA Bili) NEGATIVE [facility] AND [id number] 14:47:00 Test Item Value Reference Range Interpretation Comments UA Ketones (test code = UA Ketones) [facility] [id number] 14:47:00 Test Item Value Reference Range Interpretation Comments UA Blood (test code = UA Blood) 1+ [facility] [id number] 14:47:00 Test Item Value Reference Range Interpretation Comments UA Protein (test code = UA Protein) 1+ [facility] [id number] 14:47:00 Test Item Value Reference Range Interpretation Comments UA Nitrite (test code = UA Nitrite) POSITIVE [facility] [id number] 14:47:00 Test Item Value Reference Range Interpretation Comments UA Leuk Est (test code = UA Leuk Est) 2+ [facility] [id number] 14:47:00 Test Item Value Reference Range Interpretation Comments UA WBC (test code = UA WBC) > OR = 60 [facility] [id number] 14:47:00 Test Item Value Reference Range Interpretation Comments UA RBC (test code = UA RBC) 0-2 [facility] [id number] 14:47:00 Test Item Value Reference Range Interpretation Comments UA Sq Epi (test code = UA Sq Epi) NONE [facility]EN [facility] [id number] 14:47:00 Test Item Value Reference Range Interpretation Comments UA Bacteria (test code = UA Bacteria) MANY [facility] [id number] 14:47:00 Test Item Value Reference Range Interpretation Comments UA Hyal Cast (test code = UA Hyal NONE SEEN Cast) [facility] [id number] 14:47:00 Test Item Value Reference Range Interpretation Comments UA Reflex (test code CULTURE INDICATED - = UA Reflex) [facility] [id number] 14:47:00 Test Item Value Reference Range Interpretation Comments U Creat mg/dL (test code = U Creat 114 20-275 mg/dL) [facility] [id number] 14:47:00 Test Item Value Reference Range Interpretation Comments U Alb (test code = U Alb) 16.7 [facility] [id number] 14:47:00 Test Item Value Reference Range Interpretation Comments U Alb/Crea (test code = U Alb/Crea) 146 [facility] [id number] 14:47:00 Test Item Value Reference Range Interpretation Comments Vitamin D, 25-OH, Total (test code = 37 30-100 Vitamin D, 25-OH, Total) [facility]2020-08-06 14:47:00 Test Item Value Reference Range Interpretation Comments U Creat mg/dL (test code = U Creat 114 20-275 mg/dL) [place] 577540-08-06 14:47:00 Test Item Value Reference Range Interpretation Comments U Prot/Creat (test code = U Prot/Creat) 430 21-161 [place] 577540-08-06 14:47:00 Test Item Value Reference Range Interpretation Comments U Prot/Creat (test code = U 0.430 1 0.021-0.161 Prot/Creat) [facility]2020-08-06 14:47:00 Test Item Value Reference Range Interpretation Comments U Protein (test code = U Protein) 49 5-24 [place] 577540-08-06 14:47:00 Test Item Value Reference Range Interpretation Comments Glucose Lvl (test code = Glucose Lvl) 103 65-99 [place] 577540-08-06 14:47:00 Test Item Value Reference Range Interpretation Comments BUN (test code = BUN) 24 7-25 [place] 577540-08-06 14:47:00 Test Item Value Reference Range Interpretation Comments Creatinine Lvl (test code = Creatinine 1.32 0.50-0.99 Lvl) [facility]2020-08-06 14:47:00 Test Item Value Reference Range Interpretation Comments eGFR NON-AFR. BARBADIAN (test code = 43 eGFR NON-AFR. BARBADIAN) [facility]2020-08-06 14:47:00 Test Item Value Reference Range Interpretation Comments eGFR (test code = eGFR 50 ) [place] 577540-08-06 14:47:00 Test Item Value Reference Range Interpretation Comments B/C Ratio (test code = B/C Ratio) 18 6-22 [place] 577540-08-06 14:47:00 Test Item Value Reference Range Interpretation Comments Sodium Lvl (test code = Sodium Lvl) 138 135-146 [place] 577540-08-06 14:47:00 Test Item Value Reference Range Interpretation Comments Potassium Lvl (test code = Potassium 4.4 3.5-5.3 Lvl) [place] 577540-08-06 14:47:00 Test Item Value Reference Range Interpretation Comments Chloride Lvl (test code = Chloride Lvl) 102 98-110 [place] 577540-08-06 14:47:00 Test Item Value Reference Range Interpretation Comments CO2 (test code = CO2) 30 20-32 [place] 577540-08-06 14:47:00 Test Item Value Reference Range Interpretation Comments Calcium Lvl (test code = Calcium Lvl) 9.4 8.6-10.4 [place] [address]-08-06 14:47:00 Test Item Value Reference Range Interpretation Comments Phosphorus (test code = Phosphorus) 4.8 2.5-4.5 [place] 577540-08-06 14:47:00 Test Item Value Reference Range Interpretation Comments Albumin Lvl (test code = Albumin Lvl) 3.9 3.6-5.1 [place] [address]-08-06 14:47:00 Test Item Value Reference Range Interpretation Comments Plt Count Estimated (test code = DECREASED Plt Count Estimated) [place] [address]-08-06 14:47:00 Test Item Value Reference Range Interpretation Comments WBC X 10x3 (test code = WBC X 10x3) 7.2 3.8-10.8 [place] [address]-08-06 14:47:00 Test Item Value Reference Range Interpretation Comments RBC X 10x6 (test code = RBC X 10x6) 3.71 3.80-5.10 [place] [address]-08-06 14:47:00 Test Item Value Reference Range Interpretation Comments Hgb (test code = Hgb) 10.7 11.7-15.5 [place] [address]-08-06 14:47:00 Test Item Value Reference Range Interpretation Comments Hct (test code = Hct) 33.9 35.0-45.0 [place] [address]-08-06 14:47:00 Test Item Value Reference Range Interpretation Comments MCV (test code = MCV) 91.4 80.0-100.0 [place] [address]-08-06 14:47:00 Test Item Value Reference Range Interpretation Comments MCH (test code = MCH) 28.8 pg 27.0-33.0 [facility]NkwxtmdRKQSETIGWZ7233-74-56 14:47:00 Test Item Value Reference Range Interpretation Comments MCHC (test code = MCHC) 31.6 32.0-36.0 [facility] CypressNvhgeesAMPERVOPTH1552-06-08 14:47:00 Test Item Value Reference Range Interpretation Comments RDW (test code = RDW) 13.9 11.0-15.0 [facility] CypressWhpzssfRPDARYGYNY8258-23-74 14:47:00 Test Item Value Reference Range Interpretation Comments Platelet (test code = Platelet) 110 140-400 [facility] CypressHrctjkrGOGEBLNRIQ4559-63-71 14:47:00 Test Item Value Reference Range Interpretation Comments MPV (test code = MPV) 11.7 7.5-12.5 [facility] CypressDzhhdclBQMILIOEVI9002-03-89 14:47:00 Test Item Value Reference Range Interpretation Comments Neutrophils # (test code = Neutrophils 5414 4969-9802 #) [facility] CypressUfhizrxGTZSQMTCWK1143-73-78 14:47:00 Test Item Value Reference Range Interpretation Comments Lymphocytes # (test code = Lymphocytes 7380 237-7665 #) [facility] CypressOsieatjZHJENSBZNW9752-68-49 14:47:00 Test Item Value Reference Range Interpretation Comments Monocytes # (test code = Monocytes #) 461 200-950 [facility] CypressHlzrbwtKCAZPALXOL4186-85-98 14:47:00 Test Item Value Reference Range Interpretation Comments Eosinophils # (test code = Eosinophils 122 15-500 #) [facility] CypressQmkguqiSIWVDXWGEC1001-21-30 14:47:00 Test Item Value Reference Range Interpretation Comments Basophils # (test code 50 See_Comment [Aut omated message] The = Basophils #) system which generated this result tra nsmitted reference range : <=200. The reference r edy was not used to int erpret this result as normal/abnormal . [facility] CypressDyblqttKVRMZDANCR1291-06-90 14:47:00 Test Item Value Reference Range Interpretation Comments Segs (test code = Segs) 75.2 [facility] CypressGbsfjreGYIVBZITBQ5009-79-97 14:47:00 Test Item Value Reference Range Interpretation Comments Lymphocytes (test code = Lymphocytes) 16.0 [facility] CypressRqbxadcTCUCJGXWGX6315-44-35 14:47:00 Test Item Value Reference Range Interpretation Comments Monocytes (test code = Monocytes) 6.4 [place] 546230-08-06 14:47:00 Test Item Value Reference Range Interpretation Comments Eosinophils (test code = Eosinophils) 1.7 [facility]ptiurlZUNDVWQQOQ0625-80-56 14:47:00 Test Item Value Reference Range Interpretation Comments Basophils (test code = Basophils) 0.7 [facility] [id number] 14:47:00 Test Item Value Reference Range Interpretation Comments Result 2 (Urine Culture) See Result Comment (test code = Result 2 (Urine Culture)) [facility] AND [id number] 14:47:00 Test Item Value Reference Range Interpretation Comments UA Color (test code = UA Color) YELLOW [facility] AND [id number] 14:47:00 Test Item Value Reference Range Interpretation Comments UA Turbidity (test code = UA CLOUDY Turbidity) [facility] AND [id number] 14:47:00 Test Item Value Reference Range Interpretation Comments UA Spec Grav (test code = UA Spec 1.017 1 1.001-1.035 Grav) [facility] AND [id number] 14:47:00 Test Item Value Reference Range Interpretation Comments UA pH (test code = UA pH) 5.5 1 5.0-8.0 [facility] AND [id number] 14:47:00 Test Item Value Reference Range Interpretation Comments UA Glucose (test code = UA Glucose) NEGATIVE [facility] AND [id number] 14:47:00 Test Item Value Reference Range Interpretation Comments UA Bili (test code = UA Bili) NEGATIVE [facility] AND [id number] 14:47:00 Test Item Value Reference Range Interpretation Comments UA Ketones (test code = UA Ketones) NEGATIVE [facility] AND [id number] 14:47:00 Test Item Value Reference Range Interpretation Comments UA Blood (test code = UA Blood) 1+ [facility] AND [id number] 14:47:00 Test Item Value Reference Range Interpretation Comments UA Protein (test code = UA Protein) 1+ [facility] AND [id number] 14:47:00 Test Item Value Reference Range Interpretation Comments UA Nitrite (test code = UA Nitrite) POSITIVE [facility] AND [id number] 14:47:00 Test Item Value Reference Range Interpretation Comments UA Leuk Est (test code = UA Leuk Est) 2+ [facility] [id number] 14:47:00 Test Item Value Reference Range Interpretation Comments UA WBC (test code = UA WBC) > OR = 60 [facility] [id number] 14:47:00 Test Item Value Reference Range Interpretation Comments UA RBC (test code = UA RBC) 0-2 [facility] [id number] 14:47:00 Test Item Value Reference Range Interpretation Comments UA Sq Epi (test code = UA Sq Epi) NONE [facility]EN [facility] [id number] 14:47:00 Test Item Value Reference Range Interpretation Comments UA Bacteria (test code = UA Bacteria) MANY [facility] [id number] 14:47:00 Test Item Value Reference Range Interpretation Comments UA Hyal Cast (test code = UA Hyal NONE SEEN Cast) [facility] AND [id number] 14:47:00 Test Item Value Reference Range Interpretation Comments UA Reflex (test code CULTURE INDICATED - = UA Reflex) RESULTS TO FOLLOW [facility]2020-08-06 14:47:00 Test Item Value Reference Range Interpretation Comments U Creat mg/dL (test code = U Creat 114 20-275 mg/dL) [facility]2020-08-06 14:47:00 Test Item Value Reference Range Interpretation Comments U Alb (test code = U Alb) 16.7 [facility]2020-08-06 14:47:00 Test Item Value Reference Range Interpretation Comments U Alb/Crea (test code = U Alb/Crea) 146 [facility] [id number] 14:47:00 Test Item Value Reference Range Interpretation Comments Vitamin D, 25-OH, Total (test code = 37 30-100 Vitamin D, 25-OH, Total) [facility] [id number] 14:47:00 Test Item Value Reference Range Interpretation Comments U Creat mg/dL (test code = U Creat 114 20-275 mg/dL) [facility] [id number] 14:47:00 Test Item Value Reference Range Interpretation Comments U Prot/Creat (test code = U Prot/Creat) 430 21-161 [facility]2020-08-06 14:47:00 Test Item Value Reference Range Interpretation Comments U Prot/Creat (test code = U 0.430 1 0.021-0.161 Prot/Creat) [place] 577540-08-06 14:47:00 Test Item Value Reference Range Interpretation Comments U Protein (test code = U Protein) 49 5-24 [place] [address]-08-06 14:47:00 Test Item Value Reference Range Interpretation Comments Glucose Lvl (test code = Glucose Lvl) 103 65-99 [place] 577540-08-06 14:47:00 Test Item Value Reference Range Interpretation Comments BUN (test code = BUN) 24 7-25 [place] [address]-08-06 14:47:00 Test Item Value Reference Range Interpretation Comments Creatinine Lvl (test code = Creatinine 1.32 0.50-0.99 Lvl) [place] 577540-08-06 14:47:00 Test Item Value Reference Range Interpretation Comments eGFR NON-AFR. BARBADIAN (test code = 43 eGFR NON-AFR. BARBADIAN) [place] 577540-08-06 14:47:00 Test Item Value Reference Range Interpretation Comments eGFR (test code = eGFR 50 ) [place] 577540-08-06 14:47:00 Test Item Value Reference Range Interpretation Comments B/C Ratio (test code = B/C Ratio) 18 6-22 [place] [address]-08-06 14:47:00 Test Item Value Reference Range Interpretation Comments Sodium Lvl (test code = Sodium Lvl) 138 135-146 [place] 577540-08-06 14:47:00 Test Item Value Reference Range Interpretation Comments Potassium Lvl (test code = Potassium 4.4 3.5-5.3 Lvl) [place] 577540-08-06 14:47:00 Test Item Value Reference Range Interpretation Comments Chloride Lvl (test code = Chloride Lvl) 102 98-110 [place] [address]-08-06 14:47:00 Test Item Value Reference Range Interpretation Comments CO2 (test code = CO2) 30 20-32 [place] 577540-08-06 14:47:00 Test Item Value Reference Range Interpretation Comments Calcium Lvl (test code = Calcium Lvl) 9.4 8.6-10.4 [facility]2020-08-06 14:47:00 Test Item Value Reference Range Interpretation Comments Phosphorus (test code = Phosphorus) 4.8 2.5-4.5 [facility] [id number] 14:47:00 Test Item Value Reference Range Interpretation Comments Albumin Lvl (test code = Albumin Lvl) 3.9 3.6-5.1 [facility] CypressNygwjmdZQMSFSOEDW4335-77-08 14:47:00 Test Item Value Reference Range Interpretation Comments Plt Count Estimated (test code = DECREASED Plt Count Estimated) [facility] CypressEvjffilIIQPEJKTSL6217-89-46 14:47:00 Test Item Value Reference Range Interpretation Comments WBC X 10x3 (test code = WBC X 10x3) 7.2 3.8-10.8 [place] 546230-08-06 14:47:00 Test Item Value Reference Range Interpretation Comments RBC X 10x6 (test code = RBC X 10x6) 3.71 3.80-5.10 [facility] CypressBrmdqnaDSWTKCQYRU4922-76-14 14:47:00 Test Item Value Reference Range Interpretation Comments Hgb (test code = Hgb) 10.7 11.7-15.5 [facility] CypressIzoogtkZHAKDXVAFO7701-96-96 14:47:00 Test Item Value Reference Range Interpretation Comments Hct (test code = Hct) 33.9 35.0-45.0 [facility] CypressCzfrryuXMWDRFGOMX1939-64-06 14:47:00 Test Item Value Reference Range Interpretation Comments MCV (test code = MCV) 91.4 80.0-100.0 [facility] CypressHbdsockQIGVGUAHHX8301-12-91 14:47:00 Test Item Value Reference Range Interpretation Comments MCH (test code = MCH) 28.8 pg 27.0-33.0 [place] 546230-08-06 14:47:00 Test Item Value Reference Range Interpretation Comments MCHC (test code = MCHC) 31.6 32.0-36.0 [place] 546230-08-06 14:47:00 Test Item Value Reference Range Interpretation Comments RDW (test code = RDW) 13.9 11.0-15.0 [facility] CypressRflwtxtQXCAGBHVKU0312-06-51 14:47:00 Test Item Value Reference Range Interpretation Comments Platelet (test code = Platelet) 110 140-400 [place] 546230-08-06 14:47:00 Test Item Value Reference Range Interpretation Comments MPV (test code = MPV) 11.7 7.5-12.5 [facility]NYARSFLWBW6813-95-45 14:47:00 Test Item Value Reference Range Interpretation Comments Neutrophils # (test code = Neutrophils 5414 0354-2707 #) [facility] CenterPwigthkGHUFGOGIXR1392-92-16 14:47:00 Test Item Value Reference Range Interpretation Comments Lymphocytes # (test code = Lymphocytes [phone] #) [facility] CenterAlaftfvMCTXQEZWSM2644-65-74 14:47:00 Test Item Value Reference Range Interpretation Comments Monocytes # (test code = Monocytes #) 461 200-950 [facility] CenterYrsfnyoATILVTIYGB4265-51-32 14:47:00 Test Item Value Reference Range Interpretation Comments Eosinophils # (test code = Eosinophils 122 15-500 #) [facility] CypressWhpzjveVDPSAODKTT8720-82-07 14:47:00 Test Item Value Reference Range Interpretation Comments Basophils # (test code 50 See_Comment [Aut omated message] The = Basophils #) system which generated this result tra nsmitted reference range : <=200. The reference r edy was not used to int erpret this result as normal/abnormal . [facility] CenterFbgfxjdVBNUBOIPCO2432-03-06 14:47:00 Test Item Value Reference Range Interpretation Comments Segs (test code = Segs) 75.2 [facility] CypressSfleieeKQOKXNFSJZ0911-84-85 14:47:00 Test Item Value Reference Range Interpretation Comments Lymphocytes (test code = Lymphocytes) 16.0 [facility] CenterLhtsxyrSTHUDTDPDY9532-71-60 14:47:00 Test Item Value Reference Range Interpretation Comments Monocytes (test code = Monocytes) 6.4 [facility] CenterUwptvmeEWCYHAACWF1031-21-47 14:47:00 Test Item Value Reference Range Interpretation Comments Eosinophils (test code = Eosinophils) 1.7 [facility] AntonioPwyxheeCPEOFIJUKJ1935-25-01 14:47:00 Test Item Value Reference Range Interpretation Comments Basophils (test code = Basophils) 0.7 [facility] [id number] 14:47:00 Test Item Value Reference Range Interpretation Comments Result 2 (Urine Culture) See Result Comment (test code = Result 2 (Urine Culture)) [facility] AND [id number] 14:47:00 Test Item Value Reference Range Interpretation Comments UA Color (test code = UA Color) YELLOW [facility] [id number] 14:47:00 Test Item Value Reference Range Interpretation Comments UA Turbidity (test code = UA CLOUDY Turbidity) [facility] [id number] 14:47:00 Test Item Value Reference Range Interpretation Comments UA Spec Grav (test code = UA Spec 1.017 1 1.001-1.035 Grav) [facility] [id number] 14:47:00 Test Item Value Reference Range Interpretation Comments UA pH (test code = UA pH) 5.5 1 5.0-8.0 [facility] [id number] 14:47:00 Test Item Value Reference Range Interpretation Comments UA Glucose (test code = UA Glucose) NEGATIVE [facility] [id number] 14:47:00 Test Item Value Reference Range Interpretation Comments UA Bili (test code = UA Bili) NEGATIVE [facility] [id number] 14:47:00 Test Item Value Reference Range Interpretation Comments UA Ketones (test code = UA Ketones) NEGATIVE [facility] [id number] 14:47:00 Test Item Value Reference Range Interpretation Comments UA Blood (test code = UA Blood) 1+ [facility] [id number] 14:47:00 Test Item Value Reference Range Interpretation Comments UA Protein (test code = UA Protein) 1+ [facility] [id number] 14:47:00 Test Item Value Reference Range Interpretation Comments UA Nitrite (test code = UA Nitrite) POSITIVE [facility] [id number] 14:47:00 Test Item Value Reference Range Interpretation Comments UA Leuk Est (test code = UA Leuk Est) 2+ [facility] [id number] 14:47:00 Test Item Value Reference Range Interpretation Comments UA WBC (test code = UA WBC) > OR = 60 [facility] [id number] 14:47:00 Test Item Value Reference Range Interpretation Comments UA RBC (test code = UA RBC) 0-2 [facility] [id number] 14:47:00 Test Item Value Reference Range Interpretation Comments UA Sq Epi (test code = UA Sq Epi) NONE SEEN [facility] [id number] 14:47:00 Test Item Value Reference Range Interpretation Comments UA Bacteria (test code = UA Bacteria) MANY [facility] AND [id number] 14:47:00 Test Item Value Reference Range Interpretation Comments UA Hyal Cast (test code = UA Hyal NONE SEEN Cast) [facility] AND [id number] 14:47:00 Test Item Value Reference Range Interpretation Comments UA Reflex (test code CULTURE INDICATED - = UA Reflex) RESULTS TO FOLLOW [facility]2020-08-06 14:47:00 Test Item Value Reference Range Interpretation Comments U Creat mg/dL (test code = U Creat 114 20-275 mg/dL) [place] 489000-08-06 14:47:00 Test Item Value Reference Range Interpretation Comments U Alb (test code = U Alb) 16.7 [place] 489000-08-06 14:47:00 Test Item Value Reference Range Interpretation Comments U Alb/Crea (test code = U Alb/Crea) 146 [facility]2020-08-06 14:47:00 Test Item Value Reference Range Interpretation Comments Vitamin D, 25-OH, Total (test code = 37 30-100 Vitamin D, 25-OH, Total) [place] 577540-08-06 14:47:00 Test Item Value Reference Range Interpretation Comments U Creat mg/dL (test code = U Creat 114 20-275 mg/dL) [place] 577540-08-06 14:47:00 Test Item Value Reference Range Interpretation Comments U Prot/Creat (test code = U Prot/Creat) 430 21-161 [place] 577540-08-06 14:47:00 Test Item Value Reference Range Interpretation Comments U Prot/Creat (test code = U 0.430 1 0.021-0.161 Prot/Creat) [place] 577540-08-06 14:47:00 Test Item Value Reference Range Interpretation Comments U Protein (test code = U Protein) 49 5-24 [place] 577540-08-06 14:47:00 Test Item Value Reference Range Interpretation Comments Glucose Lvl (test code = Glucose Lvl) 103 65-99 [facility]2020-08-06 14:47:00 Test Item Value Reference Range Interpretation Comments BUN (test code = BUN) 24 7-25 [place] 577540-08-06 14:47:00 Test Item Value Reference Range Interpretation Comments Creatinine Lvl (test code = Creatinine 1.32 0.50-0.99 Lvl) [place] 577540-08-06 14:47:00 Test Item Value Reference Range Interpretation Comments eGFR NON-AFR. BARBADIAN (test code = 43 eGFR NON-AFR. BARBADIAN) [place] 577540-08-06 14:47:00 Test Item Value Reference Range Interpretation Comments eGFR (test code = eGFR 50 ) [place] 577540-08-06 14:47:00 Test Item Value Reference Range Interpretation Comments B/C Ratio (test code = B/C Ratio) 18 6-22 [place] 577540-08-06 14:47:00 Test Item Value Reference Range Interpretation Comments Sodium Lvl (test code = Sodium Lvl) 138 135-146 [facility]2020-08-06 14:47:00 Test Item Value Reference Range Interpretation Comments Potassium Lvl (test code = Potassium 4.4 3.5-5.3 Lvl) [facility]2020-08-06 14:47:00 Test Item Value Reference Range Interpretation Comments Chloride Lvl (test code = Chloride Lvl) 102 98-110 [facility]2020-08-06 14:47:00 Test Item Value Reference Range Interpretation Comments CO2 (test code = CO2) 30 20-32 [place] 577540-08-06 14:47:00 Test Item Value Reference Range Interpretation Comments Calcium Lvl (test code = Calcium Lvl) 9.4 8.6-10.4 [place] 577540-08-06 14:47:00 Test Item Value Reference Range Interpretation Comments Phosphorus (test code = Phosphorus) 4.8 2.5-4.5 [place] 577540-08-06 14:47:00 Test Item Value Reference Range Interpretation Comments Albumin Lvl (test code = Albumin Lvl) 3.9 3.6-5.1 [place] 546230-08-06 14:47:00 Test Item Value Reference Range Interpretation Comments Plt Count Estimated (test code = DECREASED Plt Count Estimated) [place] 546230-08-06 14:47:00 Test Item Value Reference Range Interpretation Comments WBC X 10x3 (test code = WBC X 10x3) 7.2 3.8-10.8 [facility]XbkyasaRVOOLZXVHU9215-97-85 14:47:00 Test Item Value Reference Range Interpretation Comments RBC X 10x6 (test code = RBC X 10x6) 3.71 3.80-5.10 [facility] CypressDzsaqhpHLZPSFXISD5023-36-89 14:47:00 Test Item Value Reference Range Interpretation Comments Hgb (test code = Hgb) 10.7 11.7-15.5 [place] 546230-08-06 14:47:00 Test Item Value Reference Range Interpretation Comments Hct (test code = Hct) 33.9 35.0-45.0 [facility] CypressWfzwcvyDSIYNAHMKA5482-16-39 14:47:00 Test Item Value Reference Range Interpretation Comments MCV (test code = MCV) 91.4 80.0-100.0 [facility] CypressEghggqpGGXSMTQQNU7616-83-31 14:47:00 Test Item Value Reference Range Interpretation Comments MCH (test code = MCH) 28.8 pg 27.0-33.0 [facility] CypressLprhlvqTEKYGIVYCI1537-60-58 14:47:00 Test Item Value Reference Range Interpretation Comments MCHC (test code = MCHC) 31.6 32.0-36.0 [facility] CypressFgqqbyfPBJZVDHALX3012-29-33 14:47:00 Test Item Value Reference Range Interpretation Comments RDW (test code = RDW) 13.9 11.0-15.0 [facility] CypressHlmurvoTTOKVCTWDJ6871-36-82 14:47:00 Test Item Value Reference Range Interpretation Comments Platelet (test code = Platelet) 110 140-400 [facility] CypressPvlgpblJIDMRNECZL1332-48-46 14:47:00 Test Item Value Reference Range Interpretation Comments MPV (test code = MPV) 11.7 7.5-12.5 [facility] CypressPbyiaqcUJYHROOQGZ8128-90-92 14:47:00 Test Item Value Reference Range Interpretation Comments Neutrophils # (test code = Neutrophils 5414 9345-9690 #) [facility] CypressTlvkcgcALUMBJQQMW1569-23-09 14:47:00 Test Item Value Reference Range Interpretation Comments Lymphocytes # (test code = Lymphocytes 5010 636-2703 #) [facility] CypressZuxsmusWTRXSOMLSJ3185-40-98 14:47:00 Test Item Value Reference Range Interpretation Comments Monocytes # (test code = Monocytes #) 461 200-950 [facility]woqxvaJEPUUOAEMY4816-35-04 14:47:00 Test Item Value Reference Range Interpretation Comments Eosinophils # (test code = Eosinophils 122 15-500 #) [facility]WLKESPJIGT4701-[facility]-70 14:47:00 Test Item Value Reference Range Interpretation Comments Basophils # (test code 50 See_Comment [Aut omated message] The = Basophils #) system which generated this result tra nsmitted reference range : <=200. The reference r edy was not used to int erpret this result as normal/abnormal . [facility] CenterPciuddsPBEWJCYGPF6945-81-74 14:47:00 Test Item Value Reference Range Interpretation Comments Segs (test code = Segs) 75.2 [facility] CenterWgholanIPDATUQJKR5871-74-11 14:47:00 Test Item Value Reference Range Interpretation Comments Lymphocytes (test code = Lymphocytes) 16.0 [facility] CenterMnawelzUCSCHOXCFD2452-03-67 14:47:00 Test Item Value Reference Range Interpretation Comments Monocytes (test code = Monocytes) 6.4 [facility] AntonioDvcaputZXLLFBAWWW4564-98-12 14:47:00 Test Item Value Reference Range Interpretation Comments Eosinophils (test code = Eosinophils) 1.7 [facility] SouthWxncawyMYHWCMFXFE1349-33-87 14:47:00 Test Item Value Reference Range Interpretation Comments Basophils (test code = Basophils) 0.7 [facility] [id number] 14:47:00 Test Item Value Reference Range Interpretation Comments Result 2 (Urine Culture) See Result Comment (test code = Result 2 (Urine Culture)) [facility] AND [id number] 14:47:00 Test Item Value Reference Range Interpretation Comments UA Color (test code = UA Color) YELLOW [facility] AND [id number] 14:47:00 Test Item Value Reference Range Interpretation Comments UA Turbidity (test code = UA CLOUDY Turbidity) [facility] AND [id number] 14:47:00 Test Item Value Reference Range Interpretation Comments UA Spec Grav (test code = UA Spec 1.017 1 1.001-1.035 Grav) [facility] AND [id number] 14:47:00 Test Item Value Reference Range Interpretation Comments UA pH (test code = UA pH) 5.5 1 5.0-8.0 [facility] [id number] 14:47:00 Test Item Value Reference Range Interpretation Comments UA Glucose (test code = UA Glucose) NEGATIVE [facility] [id number] 14:47:00 Test Item Value Reference Range Interpretation Comments UA Bili (test code = UA Bili) NEGATIVE [facility] [id number] 14:47:00 Test Item Value Reference Range Interpretation Comments UA Ketones (test code = UA Ketones) NEGATIVE [facility] [id number] 14:47:00 Test Item Value Reference Range Interpretation Comments UA Blood (test code = UA Blood) 1+ [facility] [id number] 14:47:00 Test Item Value Reference Range Interpretation Comments UA Protein (test code = UA Protein) 1+ [facility] [id number] 14:47:00 Test Item Value Reference Range Interpretation Comments UA Nitrite (test code = UA Nitrite) POSITIVE [facility] [id number] 14:47:00 Test Item Value Reference Range Interpretation Comments UA Leuk Est (test code = UA Leuk Est) 2+ [facility] [id number] 14:47:00 Test Item Value Reference Range Interpretation Comments UA WBC (test code = UA WBC) > OR = 60 [facility] [id number] 14:47:00 Test Item Value Reference Range Interpretation Comments UA RBC (test code = UA RBC) 0-2 [facility] [id number] 14:47:00 Test Item Value Reference Range Interpretation Comments UA Sq Epi (test code = UA Sq Epi) NONE SEEN [facility] [id number] 14:47:00 Test Item Value Reference Range Interpretation Comments UA Bacteria (test code = UA Bacteria) MANY [facility] [id number] 14:47:00 Test Item Value Reference Range Interpretation Comments UA Hyal Cast (test code = UA Hyal NONE SEEN Cast) [facility] [id number] 14:47:00 Test Item Value Reference Range Interpretation Comments UA Reflex (test code CULTURE INDICATED - = UA Reflex) [facility] [id number] 14:47:00 Test Item Value Reference Range Interpretation Comments U Creat mg/dL (test code = U Creat 114 20-275 mg/dL) [facility]2020-08-06 14:47:00 Test Item Value Reference Range Interpretation Comments U Alb (test code = U Alb) 16.7 [place] 489000-08-06 14:47:00 Test Item Value Reference Range Interpretation Comments U Alb/Crea (test code = U Alb/Crea) 146 [place] 577540-08-06 14:47:00 Test Item Value Reference Range Interpretation Comments Vitamin D, 25-OH, Total (test code = 37 30-100 Vitamin D, 25-OH, Total) [place] 577540-08-06 14:47:00 Test Item Value Reference Range Interpretation Comments U Creat mg/dL (test code = U Creat 114 20-275 mg/dL) [place] [address]-08-06 14:47:00 Test Item Value Reference Range Interpretation Comments U Prot/Creat (test code = U Prot/Creat) 430 21-161 [place]7540-08-06 14:47:00 Test Item Value Reference Range Interpretation Comments U Prot/Creat (test code = U 0.430 1 0.021-0.161 Prot/Creat) [facility]2020-08-06 14:47:00 Test Item Value Reference Range Interpretation Comments U Protein (test code = U Protein) 49 5-24 [place] 577540-08-06 14:47:00 Test Item Value Reference Range Interpretation Comments Glucose Lvl (test code = Glucose Lvl) 103 65-99 [place]7540-08-06 14:47:00 Test Item Value Reference Range Interpretation Comments BUN (test code = BUN) 24 7-25 [place] 577540-08-06 14:47:00 Test Item Value Reference Range Interpretation Comments Creatinine Lvl (test code = Creatinine 1.32 0.50-0.99 Lvl) [place] 577540-08-06 14:47:00 Test Item Value Reference Range Interpretation Comments eGFR NON-AFR. BARBADIAN (test code = 43 eGFR NON-AFR. BARBADIAN) [place] 577540-08-06 14:47:00 Test Item Value Reference Range Interpretation Comments eGFR (test code = eGFR 50 ) [place] 577540-08-06 14:47:00 Test Item Value Reference Range Interpretation Comments B/C Ratio (test code = B/C Ratio) 18 6-22 [place] 577540-08-06 14:47:00 Test Item Value Reference Range Interpretation Comments Sodium Lvl (test code = Sodium Lvl) 138 135-146 [place] 577540-08-06 14:47:00 Test Item Value Reference Range Interpretation Comments Potassium Lvl (test code = Potassium 4.4 3.5-5.3 Lvl) [place] 577540-08-06 14:47:00 Test Item Value Reference Range Interpretation Comments Chloride Lvl (test code = Chloride Lvl) 102 98-110 [place] 577540-08-06 14:47:00 Test Item Value Reference Range Interpretation Comments CO2 (test code = CO2) 30 20-32 [place] 577540-08-06 14:47:00 Test Item Value Reference Range Interpretation Comments Calcium Lvl (test code = Calcium Lvl) 9.4 8.6-10.4 [place] 577540-08-06 14:47:00 Test Item Value Reference Range Interpretation Comments Phosphorus (test code = Phosphorus) 4.8 2.5-4.5 [place] 577540-08-06 14:47:00 Test Item Value Reference Range Interpretation Comments Albumin Lvl (test code = Albumin Lvl) 3.9 3.6-5.1 [place] 546230-08-06 14:47:00 Test Item Value Reference Range Interpretation Comments Plt Count Estimated (test code = DECREASED Plt Count Estimated) [place] 546230-08-06 14:47:00 Test Item Value Reference Range Interpretation Comments WBC X 10x3 (test code = WBC X 10x3) 7.2 3.8-10.8 [place] [address]-08-06 14:47:00 Test Item Value Reference Range Interpretation Comments RBC X 10x6 (test code = RBC X 10x6) 3.71 3.80-5.10 [place] [address]-08-06 14:47:00 Test Item Value Reference Range Interpretation Comments Hgb (test code = Hgb) 10.7 11.7-15.5 [place] [address]-08-06 14:47:00 Test Item Value Reference Range Interpretation Comments Hct (test code = Hct) 33.9 35.0-45.0 [place] 546230-08-06 14:47:00 Test Item Value Reference Range Interpretation Comments MCV (test code = MCV) 91.4 80.0-100.0 [facility]ressHqjimsiBDXCZRCTFU7666-52-20 14:47:00 Test Item Value Reference Range Interpretation Comments MCH (test code = MCH) 28.8 pg 27.0-33.0 [facility] CypressVenudulLKWQZFSABN9925-87-73 14:47:00 Test Item Value Reference Range Interpretation Comments MCHC (test code = MCHC) 31.6 32.0-36.0 [facility] CypressDpxzhnjSLRDNIHGDH6026-67-15 14:47:00 Test Item Value Reference Range Interpretation Comments RDW (test code = RDW) 13.9 11.0-15.0 [facility] CypressPhzgymoSITTECZNUA0001-99-91 14:47:00 Test Item Value Reference Range Interpretation Comments Platelet (test code = Platelet) 110 140-400 [facility] CypressCqhnarzSYCMBFZCVD2062-33-21 14:47:00 Test Item Value Reference Range Interpretation Comments MPV (test code = MPV) 11.7 7.5-12.5 [facility] CypressUnnxlmaAMVHIOPFOS9988-14-55 14:47:00 Test Item Value Reference Range Interpretation Comments Neutrophils # (test code = Neutrophils 5414 4990-9561 #) [facility] CypressNqodyovYMKDLDXJZP8063-31-98 14:47:00 Test Item Value Reference Range Interpretation Comments Lymphocytes # (test code = Lymphocytes 6150 323-8229 #) [facility] CypressCosxzabTAKOMWUUNR4863-07-32 14:47:00 Test Item Value Reference Range Interpretation Comments Monocytes # (test code = Monocytes #) 461 200-950 [facility] CypressVooiykmAJJYQWDMVT6165-13-09 14:47:00 Test Item Value Reference Range Interpretation Comments Eosinophils # (test code = Eosinophils 122 15-500 #) [facility] CypressAjywsveBYTWHSRDQZ6393-84-15 14:47:00 Test Item Value Reference Range Interpretation Comments Basophils # (test code 50 See_Comment [Aut omated message] The = Basophils #) system which generated this result tra nsmitted reference range : <=200. The reference r edy was not used to int erpret this result as normal/abnormal . [facility] AntonioAbydmepMQPPBCEQSK3079-62-35 14:47:00 Test Item Value Reference Range Interpretation Comments Segs (test code = Segs) 75.2 [facility]kxqlajYCVRBAXNYX0793-65-32 14:47:00 Test Item Value Reference Range Interpretation Comments Lymphocytes (test code = Lymphocytes) 16.0 [facility] CenterRdaoftvLCXAMUNMIH3682-64-30 14:47:00 Test Item Value Reference Range Interpretation Comments Monocytes (test code = Monocytes) 6.4 [facility] AntonioAxgijbqIFMDGZCMDC1148-08-38 14:47:00 Test Item Value Reference Range Interpretation Comments Eosinophils (test code = Eosinophils) 1.7 [facility] AntonioGjfsnmxJGZVEPBLWX1158-94-25 14:47:00 Test Item Value Reference Range Interpretation Comments Basophils (test code = Basophils) 0.7 [facility] [id number] 14:47:00 Test Item Value Reference Range Interpretation Comments Result 2 (Urine Culture) See Result Comment (test code = Result 2 (Urine Culture)) [facility] AND [id number] 14:47:00 Test Item Value Reference Range Interpretation Comments UA Color (test code = UA Color) YELLOW [facility] AND [id number] 14:47:00 Test Item Value Reference Range Interpretation Comments UA Turbidity (test code = UA CLOUDY Turbidity) [facility] AND [id number] 14:47:00 Test Item Value Reference Range Interpretation Comments UA Spec Grav (test code = UA Spec 1.017 1 1.001-1.035 Grav) [facility] AND [id number] 14:47:00 Test Item Value Reference Range Interpretation Comments UA pH (test code = UA pH) 5.5 1 5.0-8.0 [facility] AND [id number] 14:47:00 Test Item Value Reference Range Interpretation Comments UA Glucose (test code = UA Glucose) NEGATIVE [facility] AND [id number] 14:47:00 Test Item Value Reference Range Interpretation Comments UA Bili (test code = UA Bili) NEGATIVE [facility] AND [id number] 14:47:00 Test Item Value Reference Range Interpretation Comments UA Ketones (test code = UA Ketones) NEGATIVE [facility] AND [id number] 14:47:00 Test Item Value Reference Range Interpretation Comments UA Blood (test code = UA Blood) 1+ [facility] [id number] 14:47:00 Test Item Value Reference Range Interpretation Comments UA Protein (test code = UA Protein) 1+ [facility] [id number] 14:47:00 Test Item Value Reference Range Interpretation Comments UA Nitrite (test code = UA Nitrite) [facility] [id number] 14:47:00 Test Item Value Reference Range Interpretation Comments UA Leuk Est (test code = UA Leuk Est) 2+ [facility] [id number] 14:47:00 Test Item Value Reference Range Interpretation Comments UA WBC (test code = UA WBC) > OR = 60 [facility] [id number] 14:47:00 Test Item Value Reference Range Interpretation Comments UA RBC (test code = UA RBC) 0-2 [facility] [id number] 14:47:00 Test Item Value Reference Range Interpretation Comments UA Sq Epi (test code = UA Sq Epi) NONE SEEN [facility] [id number] 14:47:00 Test Item Value Reference Range Interpretation Comments UA Bacteria (test code = UA Bacteria) MANY [facility] AND [id number] 14:47:00 Test Item Value Reference Range Interpretation Comments UA Hyal Cast (test code = UA Hyal NONE SEEN Cast) [facility] AND [id number] 14:47:00 Test Item Value Reference Range Interpretation Comments UA Reflex (test code CULTURE INDICATED - = UA Reflex) RESULTS TO FOLLOW [facility] [id number] 14:47:00 Test Item Value Reference Range Interpretation Comments U Creat mg/dL (test code = U Creat 114 20-275 mg/dL) [facility] [id number] 14:47:00 Test Item Value Reference Range Interpretation Comments U Alb (test code = U Alb) 16.7 [facility] [id number] 14:47:00 Test Item Value Reference Range Interpretation Comments U Alb/Crea (test code = U Alb/Crea) 146 [facility] [id number] 14:47:00 Test Item Value Reference Range Interpretation Comments Vitamin D, 25-OH, Total (test code = 37 30-100 Vitamin D, 25-OH, Total) [facility]2020-08-06 14:47:00 Test Item Value Reference Range Interpretation Comments U Creat mg/dL (test code = U Creat 114 20-275 mg/dL) [place] 577540-08-06 14:47:00 Test Item Value Reference Range Interpretation Comments U Prot/Creat (test code = U Prot/Creat) 430 21-161 [place] 577540-08-06 14:47:00 Test Item Value Reference Range Interpretation Comments U Prot/Creat (test code = U 0.430 1 0.021-0.161 Prot/Creat) [place] 577540-08-06 14:47:00 Test Item Value Reference Range Interpretation Comments U Protein (test code = U Protein) 49 5-24 [place] 577540-08-06 14:47:00 Test Item Value Reference Range Interpretation Comments Glucose Lvl (test code = Glucose Lvl) 103 65-99 [place] 577540-08-06 14:47:00 Test Item Value Reference Range Interpretation Comments BUN (test code = BUN) 24 7-25 [place] 577540-08-06 14:47:00 Test Item Value Reference Range Interpretation Comments Creatinine Lvl (test code = Creatinine 1.32 0.50-0.99 Lvl) [facility]2020-08-06 14:47:00 Test Item Value Reference Range Interpretation Comments eGFR NON-AFR. BARBADIAN (test code = 43 eGFR NON-AFR. BARBADIAN) [facility]2020-08-06 14:47:00 Test Item Value Reference Range Interpretation Comments eGFR (test code = eGFR 50 ) [place] 577540-08-06 14:47:00 Test Item Value Reference Range Interpretation Comments B/C Ratio (test code = B/C Ratio) 18 6-22 [place] 577540-08-06 14:47:00 Test Item Value Reference Range Interpretation Comments Sodium Lvl (test code = Sodium Lvl) 138 135-146 [place] 577540-08-06 14:47:00 Test Item Value Reference Range Interpretation Comments Potassium Lvl (test code = Potassium 4.4 3.5-5.3 Lvl) [place] 577540-08-06 14:47:00 Test Item Value Reference Range Interpretation Comments Chloride Lvl (test code = Chloride Lvl) 102 98-110 [place] 577540-08-06 14:47:00 Test Item Value Reference Range Interpretation Comments CO2 (test code = CO2) 30 20-32 [place] [address]-08-06 14:47:00 Test Item Value Reference Range Interpretation Comments Calcium Lvl (test code = Calcium Lvl) 9.4 8.6-10.4 [place] [address]-08-06 14:47:00 Test Item Value Reference Range Interpretation Comments Phosphorus (test code = Phosphorus) 4.8 2.5-4.5 [place] 577540-08-06 14:47:00 Test Item Value Reference Range Interpretation Comments Albumin Lvl (test code = Albumin Lvl) 3.9 3.6-5.1 [place] [address]-08-06 14:47:00 Test Item Value Reference Range Interpretation Comments Plt Count Estimated (test code = DECREASED Plt Count Estimated) [place] [address]-08-06 14:47:00 Test Item Value Reference Range Interpretation Comments WBC X 10x3 (test code = WBC X 10x3) 7.2 3.8-10.8 [place] [address]-08-06 14:47:00 Test Item Value Reference Range Interpretation Comments RBC X 10x6 (test code = RBC X 10x6) 3.71 3.80-5.10 [place] [address]-08-06 14:47:00 Test Item Value Reference Range Interpretation Comments Hgb (test code = Hgb) 10.7 11.7-15.5 [place] [address]-08-06 14:47:00 Test Item Value Reference Range Interpretation Comments Hct (test code = Hct) 33.9 35.0-45.0 [place] [address]-08-06 14:47:00 Test Item Value Reference Range Interpretation Comments MCV (test code = MCV) 91.4 80.0-100.0 [place] [address]-08-06 14:47:00 Test Item Value Reference Range Interpretation Comments MCH (test code = MCH) 28.8 pg 27.0-33.0 [place] [address]-08-06 14:47:00 Test Item Value Reference Range Interpretation Comments MCHC (test code = MCHC) 31.6 32.0-36.0 [facility] CypressFtwavqwKNIJTMFWTQ2262-23-77 14:47:00 Test Item Value Reference Range Interpretation Comments RDW (test code = RDW) 13.9 11.0-15.0 [place] 546230-08-06 14:47:00 Test Item Value Reference Range Interpretation Comments Platelet (test code = Platelet) 110 140-400 [facility] CypressEiwqlbuXCAYBNYMFR7523-60-11 14:47:00 Test Item Value Reference Range Interpretation Comments MPV (test code = MPV) 11.7 7.5-12.5 [facility] CypressKvthygkLDDUCJJLEL4186-78-71 14:47:00 Test Item Value Reference Range Interpretation Comments Neutrophils # (test code = Neutrophils 5414 7233-1474 #) [facility] CypressTfdltlgQGOLNSWNEZ0138-89-16 14:47:00 Test Item Value Reference Range Interpretation Comments Lymphocytes # (test code = Lymphocytes 4546 438-2159 #) [facility] CypressRjluritFPLPEEVQMK2405-33-42 14:47:00 Test Item Value Reference Range Interpretation Comments Monocytes # (test code = Monocytes #) 461 200-950 [facility] CypressIpgnwkzEPWVNUCVZL2769-83-05 14:47:00 Test Item Value Reference Range Interpretation Comments Eosinophils # (test code = Eosinophils 122 15-500 #) [facility] CypressVkpyfxmHKAPTEQRXE4277-08-62 14:47:00 Test Item Value Reference Range Interpretation Comments Basophils # (test code 50 See_Comment [Aut omated message] The = Basophils #) system which generated this result tra nsmitted reference range : <=200. The reference r edy was not used to int erpret this result as normal/abnormal . [facility] CypressAlylsdyEGOYNMREXP6334-20-21 14:47:00 Test Item Value Reference Range Interpretation Comments Segs (test code = Segs) 75.2 [facility] CypressAmghaqoKDBMLJSFDZ3370-28-14 14:47:00 Test Item Value Reference Range Interpretation Comments Lymphocytes (test code = Lymphocytes) 16.0 [place] 546230-08-06 14:47:00 Test Item Value Reference Range Interpretation Comments Monocytes (test code = Monocytes) 6.4 [facility] CypressNkgtgruUGMDJZKNYY7175-52-06 14:47:00 Test Item Value Reference Range Interpretation Comments Eosinophils (test code = Eosinophils) 1.7 [facility]WoteuhuXGFTLFCFSC1799-43-86 14:47:00 Test Item Value Reference Range Interpretation Comments Basophils (test code = Basophils) 0.7 [facility] [id number] 14:47:00 Test Item Value Reference Range Interpretation Comments Result 2 (Urine Culture) See Result Comment (test code = Result 2 (Urine Culture)) [facility] AND [id number] 14:47:00 Test Item Value Reference Range Interpretation Comments UA Color (test code = UA Color) YELLOW [facility] AND [id number] 14:47:00 Test Item Value Reference Range Interpretation Comments UA Turbidity (test code = UA CLOUDY Turbidity) [facility] AND [id number] 14:47:00 Test Item Value Reference Range Interpretation Comments UA Spec Grav (test code = UA Spec 1.017 1 1.001-1.035 Grav) [facility] AND [id number] 14:47:00 Test Item Value Reference Range Interpretation Comments UA pH (test code = UA pH) 5.5 1 5.0-8.0 [facility] AND [id number] 14:47:00 Test Item Value Reference Range Interpretation Comments UA Glucose (test code = UA Glucose) NEGATIVE [facility] AND [id number] 14:47:00 Test Item Value Reference Range Interpretation Comments UA Bili (test code = UA Bili) NEGATIVE [facility] AND [id number] 14:47:00 Test Item Value Reference Range Interpretation Comments UA Ketones (test code = UA Ketones) NEGATIVE [facility] [id number] 14:47:00 Test Item Value Reference Range Interpretation Comments UA Blood (test code = UA Blood) 1+ [facility] AND [id number] 14:47:00 Test Item Value Reference Range Interpretation Comments UA Protein (test code = UA Protein) 1+ [facility] [id number] 14:47:00 Test Item Value Reference Range Interpretation Comments UA Nitrite (test code = UA Nitrite) [facility] [id number] 14:47:00 Test Item Value Reference Range Interpretation Comments UA Leuk Est (test code = UA Leuk Est) 2+ [facility] [id number] 14:47:00 Test Item Value Reference Range Interpretation Comments UA WBC (test code = UA WBC) > OR = 60 [facility] [id number] 14:47:00 Test Item Value Reference Range Interpretation Comments UA RBC (test code = UA RBC) [facility] [id number] 14:47:00 Test Item Value Reference Range Interpretation Comments UA Sq Epi (test code = UA Sq Epi) [facility]ONE [facility]EN [facility] [id number] 14:47:00 Test Item Value Reference Range Interpretation Comments UA Bacteria (test code = UA Bacteria) MANY [facility] [id number] 14:47:00 Test Item Value Reference Range Interpretation Comments UA Hyal Cast (test code = UA Hyal NONE SEEN Cast) [facility] AND [id number] 14:47:00 Test Item Value Reference Range Interpretation Comments UA Reflex (test code CULTURE INDICATED - = UA Reflex) RESULTS TO FOLLOW [facility]2020-08-06 14:47:00 Test Item Value Reference Range Interpretation Comments U Creat mg/dL (test code = U Creat 114 20-275 mg/dL) [facility] [id number] 14:47:00 Test Item Value Reference Range Interpretation Comments U Alb (test code = U Alb) 16.7 [facility] [id number] 14:47:00 Test Item Value Reference Range Interpretation Comments U Alb/Crea (test code = U Alb/Crea) 146 [facility] PROTEIN ELECTROPHORESIS-24HR [id number] 08:01:00 Test Item Value Reference Range Interpretation Comments CREATININE, 24 HOUR 1.45 g/24 h 0.50-2.15 URINE (test code = 56304504) PROTEIN/CREATININE 292 mg/g creat < OR = 114 H RATION (test code = 60348947) PROTEIN, TOTAL 24 HR UR 424 mg/24 h <150 H TEST PERFORMED (test code = 10349132) AT[facility] [id number] [place], [place] [address], [place] [address]ERSQVNIECY BOYCE MD ALBUMIN (test code = 35 % 43758710) NQCSY-1-PNOLECZXT (test 10 % code = 91504577) VCBZM-5-JOZYLESAM (test 12 % code = 61459920) BETA GLOBULINS (test 25 % code = 28671945) GAMMA GLOBULINS (test 18 % code = 36743478) INTERPRETATION (test Albumin and code = 52920169) various dann bulin fractions detected on proteinelectrop ho resis. No abnormal protei n bands (Bence-Jonespro te inuria) detected.TEST PERFORMED AT:[facility].[place] [address]UCMPLNIECY BOYCE MD NEUTROPHIL CYTOPLASMIC [id number] 05:19:00 Test Item Value Reference Range Interpretation Comments ANCA SCREEN (test NEGATIVE NEGATIVE ANCA Scree n includes code = 97511920) evaluation for p-ANCA, c-ANCA andatypi alexandre p-ANCA. [...] ofpat ients with Crohn's disease .TEST PERFORMED AT:[facility] [id number] [facility] [place] [address]JRKADOSCAR EISENBERG MD,PHD ,MICHI COMPREHENSIVE METABOLIC [id number] 06:25:00 Test Item Value Reference Range Interpretation [...] MORPH (test code = RBCMOR) NORMAL URINE [id number] 09:53:00 Test Item Value Reference Range Interpretation [...] = VD) 36.0 ng/mL 30.0-100.0 SERUM PROTEIN [id number] 06:20:00 Test Item Value Reference Range Interpretation Comments PROTEIN TOTAL (test 5.7 g/dL 6.1-8.1 L TEST PER FORMED AT:QUEST code = 41307245) DIAGNOSTICS -[id number] [facility] [place] [address]EMJTHNIECY BOYCE MD ALBUMIN (test code = 3.2 g/dL 3.8-4.8 L 33849135) DVAYR-2-BRRXFMFAR 0.4 g/dL 0.2-0.3 H (test code = 53888572) MZOGE-4-LKFUMFAFJ 0.8 g/dL 0.5-0.9 (test code = 44694499) BETA 1 GLOBULIN (test 0.5 g/dL 0.4-0.6 code = 28361863) BETA 2 GLOBULIN (test 0.2 g/dL 0.2-0.5 code = 79443851) GAMMA GLOBULINS (test 0.6 g/dL 0.8-1.7 L code = 94011582) INTERPRETATION (test Pattern consistent with code = 91518959) an acute ph ase reactionConsist ent with hypogammaglobul inemia. Serum free ligh tchains or urine immuno fixation should be consi dered ifplasma cell d yscrasias are a possible clinicaldiagnos is.TEST PERFORMED AT:[facility] [id number] [facility] [place] [address]VDXQUNIECY BOYCE MD [id number] 06:13:00 Test Item Value Reference Range Interpretation Comments MAGNESIUM (test code = 48A) 1.7 mg/dL 1.8-2.4 L COMPREHENSIVE METABOLIC [id number] 06:13:00 Test Item Value Reference Range Interpretation [...] (test code = RBCMOR) NORMAL COMPREHENSIVE METABOLIC [id number] 05:30:00 Test Item Value Reference Range Interpretation [...] (test code = RBCMOR) NORMAL URINALYSIS WITH [id number] 06:44:00 Test Item Value Reference Range Interpretation [...] code = USPERM) /HPF NONE COMPREHENSIVE METABOLIC [id number] 05:24:00 Test Item Value Reference Range Interpretation [...] = RBCMOR) NORMAL U/S KIDNEY (RENAL)2019-06-06 23:20:42LOCATION: [id number]: 63-year-old female who presents with acute nontraumatic [...] jet was observed onthe color flow study.TROPONIN [id number] 07:14:00 Test Item Value Reference Range Interpretation Comments TROPONIN I (test code = A84) <0.015 ng/mL 0.000-0.045 COMPREHENSIVE METABOLIC [id number] 05:28:00 Test Item Value Reference Range Interpretation [...] (test code = RBCMOR) NORMAL COMPREHENSIVE METABOLIC [id number] 04:58:00 Test Item Value Reference Range Interpretation [...] (test code = MDIFF) NO NO CARDIAC [id number] 23:10:00 Test Item Value Reference Range Interpretation Comments TROPONIN I (test code = A84) <0.015 ng/mL 0.000-0.045 U/S VENOUS DOPPLER BALDO LOW [id number] 22:23:14LOCATION: [id number]: 63-year-old female who presents with bilateral leg [...] thrombosis in either of thispatient's legs. CARDIAC [id number] 16:50:00 Test Item Value Reference Range Interpretation Comments TROPONIN I (test code = A84) <0.015 ng/mL 0.000-0.045 BRAIN NATRIURETIC [id number] 14:39:00 Test Item Value Reference Range Interpretation Comments proBNP (test code = PBNP) 1337 pg/mL 0-125 H THYROID PANEL/SCREEN (TSH)2019-06-04 12:05:00 Test Item Value Reference Range Interpretation Comments TSH (test code = A57) 0.989 uIU/mL 0.358-3.740 [id number] 12:02:00 Test Item Value Reference Range Interpretation Comments CPK (test code = 32A) 98 IU/L 26-192 AMYLASE AND [id number] 12:02:00 Test Item Value Reference Range Interpretation Comments AMYLASE (test code = 10A) 19 U/L 28-100 L LIPASE (test code = 60A) 67 IU/L 73-393 L COMPREHENSIVE METABOLIC [id number] 12:02:00 Test Item Value Reference Range Interpretation [...] code = 31A) 41 IU/L <=78 TROPONIN [id number] 11:57:00 Test Item Value Reference Range Interpretation Comments TROPONIN I (test code = A84) <0.015 ng/mL 0.000-0.045 XR CHEST 1 VIEW [id number] 11:55:22EXAM: XR CHEST 1 VIEW PORTABLE.LOCATION: .HISTORY: [id number]: Chest pain.COMPARISON: Radiograph dated 05/12/2019.TECHNIQUE: Single AP view of the chest was obtained. FINDINGS:The heart is enlarged in size. Small left pleural effusion and left basilaropacities are present. There is elevation of the right hemidiaphragm. No acuteosseous abnormality is identified.IMPRESSION:Small left pleural effusion with left basilar opacities, which may representatelectasis or infiltrates.Cardiomegaly. PRO TIME AND [id number] 11:43:00 Test Item Value Reference Range Interpretation [...] (test code = RBCMOR) NORMAL CBC WITH [id number] 15:29:00 Test Item Value Reference Range Interpretation [...] NORMAL (1.5-3 um) NORMAL PLTMOR) BASIC METABOLIC [id number] 15:26:00 Test Item Value Reference Range Interpretation [...] code = 09D) 9.2 mg/dL 8.3-9.5 CARDIAC [id number] 06:04:00 Test Item Value Reference Range Interpretation Comments TROPONIN I (test code = A84) <0.015 ng/mL 0.000-0.045 BASIC METABOLIC [id number] 05:52:00 Test Item Value Reference Range Interpretation [...] MORPH (test code = RBCMOR) NORMAL CARDIAC [id number] 23:08:00 Test Item Value Reference Range Interpretation Comments TROPONIN I (test code = A84) <0.015 ng/mL 0.000-0.045 CT DISSECTION [id number] 19:26:35Exam: CT thorax PE protocol.Location: 12History: [id number]: Chest painTechnique: Enhanced spiral slices were taken [...] code = A57) 0.706 uIU/mL 0.358-3.740 LIVER [id number] 18:28:00 Test Item Value Reference Range Interpretation [...] = 31A) 21 IU/L <=78 BRAIN NATRIURETIC [id number] 18:19:00 Test Item Value Reference Range Interpretation Comments proBNP (test code = PBNP) 518 pg/mL 0-125 H [id number] 18:15:00 Test Item Value Reference Range Interpretation Comments MAGNESIUM (test code = 48A) 1.9 mg/dL 1.8-2.4 [id number] 17:40:00 Test Item Value Reference Range Interpretation Comments D-DIMER (test code = <200 ng/mL D-DU 0-234 DDI) D-DIMER COMMENT (test *Level to rule out code = DDCOM) DVT or PE: <235 ng/mL D-DU* CARDIAC [id number] 17:31:00 Test Item Value Reference Range Interpretation Comments TROPONIN I (test code = A84) <0.015 ng/mL 0.000-0.045 BASIC METABOLIC [id number] 17:27:00 Test Item Value Reference Range Interpretation [...] LMW Heparin. Order Code is ANTI-XA PROTHROMBIN [id number] 17:26:00 Test Item Value Reference Range Interpretation Comments PT (test code = 12.0 s 9.8-13.6 TT) INR (test code = 1.1 INR) INRH (test code = SUGGESTED THERAPEUTIC INRH) RANGE FOR INR: 2.5 - 3.5 For Patients with Prosthetic Valves or Patients with recurrent Thromboembolic Events 2.0 - 3.0 For Most Other Applications XR CHEST 1 VIEW [id number] 17:04:28Portable AP chest, 1 viewLocation Code: [id number] HISTORY: Chest painCOMPARISON: NoneCOMMENT: Mild atelectasis is present within the lung bases. The costophrenic angles aresharp. The cardiomediastinalsilhouette is unremarkable. The bones are intact.IMPRESSION: Mild bibasilar atelectasis. Otherwise, no acute abnormalityCHEM [id number] 16:51:00 Test Item Value Reference Range Interpretation Comments Creatinine Lvl (test code = Creatinine 1.15 0.50-1.40 Lvl) [facility] [id number] 16:51:00 Test Item Value Reference Range Interpretation Comments BUN (test code = BUN) 16 05-12 [facility]2017-01-24 16:51:00 Test Item Value Reference Range Interpretation Comments Chloride Lvl (test code = Chloride Lvl) 109 95-109 [facility]2017-01-24 16:51:00 Test Item Value Reference Range Interpretation Comments Potassium Lvl (test code = Potassium 4.3 3.5-5.1 Lvl) [facility]2017-01-24 16:51:00 Test Item Value Reference Range Interpretation Comments Sodium Lvl (test code = Sodium Lvl) 144 135-145 [facility]2017-01-24 16:51:00 Test Item Value Reference Range Interpretation Comments CO2 (test code = CO2) 28 - [facility]2017-01-24 16:51:00 Test Item Value Reference Range Interpretation Comments Calcium Lvl (test code = Calcium Lvl) 8.4 8.5-10.5 [facility]2017-01-24 16:51:00 Test Item Value Reference Range Interpretation Comments AGAP (test code = AGAP) 11.3 10.0-20.0 [facility]2017-01-24 16:51:00 Test Item Value Reference Range Interpretation Comments Glucose Lvl (test code = Glucose Lvl) 109 70-99 [facility]2017-01-24 16:51:00 Test Item Value Reference Range Interpretation Comments eGFR (test code = eGFR) 52 [facility]2017-01-24 16:51:00 Test Item Value Reference Range Interpretation Comments Creatinine Lvl (test code = Creatinine 1.15 0.50-1.40 Lvl) [facility]2017-01-24 16:51:00 Test Item Value Reference Range Interpretation Comments BUN (test code = BUN) 16 - [facility]2017-01-24 16:51:00 Test Item Value Reference Range Interpretation Comments Chloride Lvl (test code = Chloride Lvl) 109 95-109 [facility]2017-01-24 16:51:00 Test Item Value Reference Range Interpretation Comments Potassium Lvl (test code = Potassium 4.3 3.5-5.1 Lvl) [facility]2017-01-24 16:51:00 Test Item Value Reference Range Interpretation Comments Sodium Lvl (test code = Sodium Lvl) 144 135-145 [facility]2017-01-24 16:51:00 Test Item Value Reference Range Interpretation Comments CO2 (test code = CO2) 28 - [facility]2017-01-24 16:51:00 Test Item Value Reference Range Interpretation Comments Calcium Lvl (test code = Calcium Lvl) 8.4 8.5-10.5 [facility]2017-01-24 16:51:00 Test Item Value Reference Range Interpretation Comments AGAP (test code = AGAP) 11.3 10.0-20.0 [facility]2017-01-24 16:51:00 Test Item Value Reference Range Interpretation Comments Glucose Lvl (test code = Glucose Lvl) 109 70-99 [facility]2017-01-24 16:51:00 Test Item Value Reference Range Interpretation Comments eGFR (test code = eGFR) 52 [facility]2017-01-24 16:51:00 Test Item Value Reference Range Interpretation Comments Creatinine Lvl (test code = Creatinine 1.15 0.50-1.40 Lvl) [facility]2017-01-24 16:51:00 Test Item Value Reference Range Interpretation Comments BUN (test code = BUN) 16 - [facility]2017-01-24 16:51:00 Test Item Value Reference Range Interpretation Comments Chloride Lvl (test code = Chloride Lvl) 109 95-109 [facility]2017-01-24 16:51:00 Test Item Value Reference Range Interpretation Comments Potassium Lvl (test code = Potassium 4.3 3.5-5.1 Lvl) [facility]2017-01-24 16:51:00 Test Item Value Reference Range Interpretation Comments Sodium Lvl (test code = Sodium Lvl) 144 135-145 [facility]2017-01-24 16:51:00 Test Item Value Reference Range Interpretation Comments CO2 (test code = CO2) 28 [facility]2017-01-24 16:51:00 Test Item Value Reference Range Interpretation Comments Calcium Lvl (test code = Calcium Lvl) 8.4 8.5-10.5 [facility]2017-01-24 16:51:00 Test Item Value Reference Range Interpretation Comments AGAP (test code = AGAP) 11.3 10.0-20.0 [facility]2017-01-24 16:51:00 Test Item Value Reference Range Interpretation Comments Glucose Lvl (test code = Glucose Lvl) 109 70-99 [facility]2017-01-24 16:51:00 Test Item Value Reference Range Interpretation Comments eGFR (test code = eGFR) 52 [facility]2017-01-24 16:51:00 Test Item Value Reference Range Interpretation Comments Creatinine Lvl (test code = Creatinine 1.15 0.50-1.40 Lvl) [facility]2017-01-24 16:51:00 Test Item Value Reference Range Interpretation Comments BUN (test code = BUN) 16 - [facility]2017-01-24 16:51:00 Test Item Value Reference Range Interpretation Comments Chloride Lvl (test code = Chloride Lvl) 109 95-109 [facility]2017-01-24 16:51:00 Test Item Value Reference Range Interpretation Comments Potassium Lvl (test code = Potassium 4.3 3.5-5.1 Lvl) [facility]2017-01-24 16:51:00 Test Item Value Reference Range Interpretation Comments Sodium Lvl (test code = Sodium Lvl) 144 135-145 [facility]2017-01-24 16:51:00 Test Item Value Reference Range Interpretation Comments CO2 (test code = CO2) 28 -32 [facility]2017-01-24 16:51:00 Test Item Value Reference Range Interpretation Comments Calcium Lvl (test code = Calcium Lvl) 8.4 8.5-10.5 [facility]2017-01-24 16:51:00 Test Item Value Reference Range Interpretation Comments AGAP (test code = AGAP) 11.3 10.0-20.0 [facility]2017-01-24 16:51:00 Test Item Value Reference Range Interpretation Comments Glucose Lvl (test code = Glucose Lvl) 109 70-99 [facility]2017-01-24 16:51:00 Test Item Value Reference Range Interpretation Comments eGFR (test code = eGFR) 52 [facility]2017-01-24 16:51:00 Test Item Value Reference Range Interpretation Comments Creatinine Lvl (test code = Creatinine 1.15 0.50-1.40 Lvl) [facility]2017-01-24 16:51:00 Test Item Value Reference Range Interpretation Comments BUN (test code = BUN) 16 05-12 [facility]2017-01-24 16:51:00 Test Item Value Reference Range Interpretation Comments Chloride Lvl (test code = Chloride Lvl) 109 95-109 [facility]2017-01-24 16:51:00 Test Item Value Reference Range Interpretation Comments Potassium Lvl (test code = Potassium 4.3 3.5-5.1 Lvl) [facility]2017-01-24 16:51:00 Test Item Value Reference Range Interpretation Comments Sodium Lvl (test code = Sodium Lvl) 144 135-145 [facility]2017-01-24 16:51:00 Test Item Value Reference Range Interpretation Comments CO2 (test code = CO2) [facility]2017-01-24 16:51:00 Test Item Value Reference Range Interpretation Comments Calcium Lvl (test code = Calcium Lvl) 8.4 8.5-10.5 [facility]2017-01-24 16:51:00 Test Item Value Reference Range Interpretation Comments AGAP (test code = AGAP) 11.3 10.0-20.0 [facility]2017-01-24 16:51:00 Test Item Value Reference Range Interpretation Comments Glucose Lvl (test code = Glucose Lvl) 109 70-99 [facility]2017-01-24 16:51:00 Test Item Value Reference Range Interpretation Comments eGFR (test code = eGFR) 52 [facility]2017-01-24 16:51:00 Test Item Value Reference Range Interpretation Comments Creatinine Lvl (test code = Creatinine 1.15 0.50-1.40 Lvl) [facility]2017-01-24 16:51:00 Test Item Value Reference Range Interpretation Comments BUN (test code = BUN) 16 05-12 [facility]2017-01-24 16:51:00 Test Item Value Reference Range Interpretation Comments Chloride Lvl (test code = Chloride Lvl) 109 95-109 [facility]2017-01-24 16:51:00 Test Item Value Reference Range Interpretation Comments Potassium Lvl (test code = Potassium 4.3 3.5-5.1 Lvl) [facility]2017-01-24 16:51:00 Test Item Value Reference Range Interpretation Comments Sodium Lvl (test code = Sodium Lvl) 144 135-145 [facility]2017-01-24 16:51:00 Test Item Value Reference Range Interpretation Comments CO2 (test code = CO2) [facility]2017-01-24 16:51:00 Test Item Value Reference Range Interpretation Comments Calcium Lvl (test code = Calcium Lvl) 8.4 8.5-10.5 [facility]2017-01-24 16:51:00 Test Item Value Reference Range Interpretation Comments AGAP (test code = AGAP) 11.3 10.0-20.0 [facility]2017-01-24 16:51:00 Test Item Value Reference Range Interpretation Comments Glucose Lvl (test code = Glucose Lvl) 109 70-99 [facility]2017-01-24 16:51:00 Test Item Value Reference Range Interpretation Comments eGFR (test code = eGFR) 52 [facility]2017-01-24 16:51:00 Test Item Value Reference Range Interpretation Comments Creatinine Lvl (test code = Creatinine 1.15 0.50-1.40 Lvl) [facility]2017-01-24 16:51:00 Test Item Value Reference Range Interpretation Comments BUN (test code = BUN) 16 - [facility]2017-01-24 16:51:00 Test Item Value Reference Range Interpretation Comments Chloride Lvl (test code = Chloride Lvl) 109 95-109 [facility]2017-01-24 16:51:00 Test Item Value Reference Range Interpretation Comments Potassium Lvl (test code = Potassium 4.3 3.5-5.1 Lvl) [facility]2017-01-24 16:51:00 Test Item Value Reference Range Interpretation Comments Sodium Lvl (test code = Sodium Lvl) 144 135-145 [facility]2017-01-24 16:51:00 Test Item Value Reference Range Interpretation Comments CO2 (test code = CO2) [facility]2017-01-24 16:51:00 Test Item Value Reference Range Interpretation Comments Calcium Lvl (test code = Calcium Lvl) 8.4 8.5-10.5 [facility]2017-01-24 16:51:00 Test Item Value Reference Range Interpretation Comments AGAP (test code = AGAP) 11.3 10.0-20.0 [facility]2017-01-24 16:51:00 Test Item Value Reference Range Interpretation Comments Glucose Lvl (test code = Glucose Lvl) 109 70-99 [facility]2017-01-24 16:51:00 Test Item Value Reference Range Interpretation Comments eGFR (test code = eGFR) 52 [facility]
[2022-10-25] MEDS ORDERED: NA CHLORIDE 0.9% 1,000 ML ONE (10:52)
[2022-10-25 11:16] LABS: Absolute Lymphocytes (CBC) 0.9 K/uL (0.7-4.9); Hematocrit 26.6 % (36.0-45.0); MCV 95.9 fL (80-100); MPV 7.8 fL (7.6-11.3); RBC Red Blood Cell Count 2.77 M/uL (3.86-4.86)
[2022-10-25 11:21] LABS: Protime INR 1.98
[2022-10-25] MEDS ORDERED: CEFTRIAXONE 1000 MG/VIAL ONE (11:33)
[2022-10-25 11:53] LABS: ALT/SGPT < 10 U/L (13-56); AST/SGOT < 3 U/L (15-37); Albumin 3.1 g/dL (3.4-5.0); Alkaline Phosphatase 135 U/L (45-117); BUN Blood Urea Nitrogen 41 mg/dL (7-18); Bicarbonate 27 mmol/L (21-32); Bilirubin Direct 0.4 mg/dL (0-0.2); Glomerular Filtration Rate 7 ml/min (=/>90); Glucose Level 127 mg/dL (74-106); Lipase 117 U/L (73-393); Magnesium 2.2 mg/dL (1.6-2.4); NT PRO-BNP 48464 pg/mL (<125); Protein, Total 7.5 g/dL (6.4-8.2); Sodium Level 138 mmol/L (136-145); Troponin High Sensitivity 19.9 pg/mL (<58.9)
[2022-10-25 11:55] LABS: SARS-COV-2 RT PCR NEGATIVE (NEGATIVE)
[2022-10-25 11:55] LABS: Platelet Estimate ADEQ; White Blood Cell Scan OK (OK)
[2022-10-25 11:56] LABS: Blood Morphology Comment NOT SEEN (NOT SEEN)
--- NOTE | 2022-10-25 12:04 | RAD REPORT ---
EXAM DESCRIPTION: RAD - Chest Single View - 10/25/2022 11:07 am CLINICAL HISTORY: COUGH COMPARISON: Portable 10/20/2022 TECHNIQUE: AP portable chest image was obtained 10/25/2022 11:07 am . FINDINGS: Lung volumes remain low. Elevated right hemidiaphragm is seen. Loop recorder overlies the lower chest. Patient has a double-lumen dialysis catheter in place. These are stable findings. No new or progressive lung parenchymal process. Posterior gutter on the right is obscured by the elev ated hemidiaphragm. Significant failure or volume overload are doubtful. Heart size is prominent. No measurable pleural effusion and no pneumothorax. No acute bony abnormality seen. No acute aortic find ings suspected. IMPRESSION: Limited portable study showing no significant failure or volume overload. Chest is not significantly different from the 10/20/2022 imaging.
--- NOTE | 2022-10-25 13:50 | EDPHYS ---
Physician Documentation [facility] Name: Kassie De Jesus Age: 67 yrs Sex: Female : 1955 Arrival Date: 10/25/2022 Time: 10:[address] Private MD: Ranjit Eagle ED Physician Adrian Lin HPI: 10/25 10:40 This 67 yrs old Female presents to ER via Unassigned with complaints of Low trinidad BP. 10:40 low bp. trinidad 13:42 Onset: The symptoms/episode began/occurred this morning. Severity of symptoms: At their trinidad worst the symptoms were mild in the emergency department the symptoms have improved mildly. The patient has experienced similar episodes in the past, several times. Historical: - Allergies: 10:49 Bactrim; ap3 10:49 cefepime; ap3 10:49 Codeine; ap3 10:49 Levofloxacin; ap3 10:49 Morphine; itching; ap3 10:49 PENICILLINS; ap3 10:49 QUINOLONES; ap3 - Home Meds: 10:49 amiodarone 200 mg Oral tab 1 tab 2 times per day [Active]; metoprolol tartrate 25 mg ap3 Oral tab .5 tab 2 times per day [Active]; - PMHx: 10:49 Atrial fibrillation; Congestive heart failure; Dialysis; High Cholesterol; Hypertensive ap3 disorder; stage 4 kidney failure; - PSHx: 10:49 back surgery; Dialysis catheter LEFT upper chest; ap3 - Immunization history:: Client reports having NOT received the Covid vaccine. - Social history:: Smoking status: Patient denies any tobacco usage or history of. ROS: 13:43 Constitutional: Negative for fever, chills, and weight loss, Eyes: Negative for injury, trinidad pain, redness, and discharge, ENT: Negative for injury, pain, and discharge, Neck: Negative for injury, pain, and swelling, Cardiovascular: Negative for chest pain, palpitations, and edema, Abdomen/GI: Negative for abdominal pain, nausea, vomiting, diarrhea, and constipation, Back: Negative for injury and pain, : Negative for injury, bleeding, discharge, and swelling, MS/Extremity: Negative for injury and deformity, Skin: Negative for injury, rash, and discoloration, Psych: Negative for depression, anxiety, suicide ideation, homicidal ideation, and hallucinations, Allergy/Immunology: Negative for hives, rash, and allergies, Endocrine: Negative for neck swelling, polydipsia, polyuria, polyphagia, and marked weight changes, Hematologic/Lymphatic: Negative for swollen nodes, abnormal bleeding, and unusual bruising. 13:43 Respiratory: Positive for cough, shortness of breath. 13:43 Neuro: Positive for dizziness, weakness. Exam: 13:43 Constitutional: This is a well developed, well nourished patient who is awake, alert, trinidad and in no acute distress. Head/Face: Normocephalic, atraumatic. Eyes: Pupils equal round and reactive to light, extra-ocular motions intact. Lids and lashes normal. Conjunctiva and sclera are non-icteric and not injected. Cornea within normal limits. Periorbital areas with no swelling, redness, or edema. ENT: Nares patent. No nasal discharge, no septal abnormalities noted. Tympanic membranes are normal and external auditory canals are clear. Oropharynx with no redness, swelling, or masses, exudates, or evidence of obstruction, uvula midline. Mucous membranes moist. Neck: Trachea midline, no thyromegaly or masses palpated, and no cervical lymphadenopathy. Supple, full range of motion without nuchal rigidity, or vertebral point tenderness. No Meningismus. Chest/axilla: Normal chest wall appearance and motion. Nontender with no deformity. No lesions are appreciated. Abdomen/GI: Soft, non-tender, with normal bowel sounds. No distension or tympany. No guarding or rebound. No evidence of tenderness throughout. Back: No spinal tenderness. No costovertebral tenderness. Full range of motion. Female : Normal external genitalia. Skin: Warm, dry with normal turgor. Normal color with no rashes, no lesions, and no evidence of cellulitis. MS/ Extremity: Pulses equal, no cyanosis. Neurovascular intact. Full, normal range of motion. Neuro: Awake and alert, GCS 15, oriented to person, place, time, and situation. Cranial nerves II-XII grossly intact. Motor strength 5/5 in all extremities. Sensory grossly intact. Cerebellar exam normal. Normal gait. Psych: Awake, alert, with orientation to person, place and time. Behavior, mood, and affect are within normal limits. 13:43 Cardiovascular: Rate: tachycardic, actual rate is 100 bpm, Rhythm: regular, Pulses: Pulses are 3+ in bilateral radial, brachial, femoral, popliteal, posterior tibial and and dorsalis pedis arteries.. Heart sounds: normal, Edema: is not appreciated. 13:43 ECG was reviewed by the Attending Physician. Vital Signs: 10:45 BP 111 / 63; Pulse 88; Resp 19; Temp 98.1; Pulse Ox 98% 4 lpm ; Weight 104.33 kg; ap3 Height 5 ft. 7 in. (170.18 cm); 10:59 BP 116 / 62; Pulse 90; Resp 18; Pulse Ox 98% on 4 lpm NC; ld1 12:46 BP 94 / 71; Pulse 100; Resp 18; Pulse Ox 94% on R/A; ld1 13:47 BP 105 / 46; Pulse 99; Resp 18; Pulse Ox 96% on R/A; ld1 14:57 BP 101 / 50; Pulse 121; Resp 20; Pulse Ox 99% on 4 lpm NC; ld1 19:00 BP 117 / 87; Pulse 107; Resp 20; Pulse Ox 94% on 3 lpm NC; jb4 10:45 Body Mass Index 36.02 (104.33 kg, 170.18 cm) ap3 10:45 patient wears 4liters at home ap3 MDM: 10:38 Patient medically screened. trinidad 14:02 Differential diagnosis: Anemia Anxiety Reaction CHF exacerbation, Myocardial Infarction trinidad pulmonary edema, Pulmonary Embolism reactive airway disease, Sepsis Unstable Angina. Antibiotic administration: Rocephin and Zithromax given. Differential Diagnosis altered mental status, sepsis, flu. The patient's Wells Deep Vein Thrombosis Score was calculated as follows: Total Score: 0-2 Pts- Low Risk. The patient's pulmonary embolism risk score was calculated as follows: Total Score: 0-2 points. This patient was found to be at low risk for a pulmonary embolism by using the Well's assessment criteria. Immunization status: Pneumococcal vaccine: Influenza vaccine: Data reviewed: vital signs, nurses notes, EMS record, lab test result(s), EKG, radiologic studies. Data interpreted: technology architect: not applicable for this patient encounter. Pulse oximetry: is not applicable for this patient encounter. Test interpretation: by ED physician or midlevel provider: ECG. Counseling: I had a detailed discussion with the patient and/or guardian regarding: the historical points, exam findings, and any diagnostic results supporting the discharge/admit diagnosis, lab results, radiology results, the need for further work-up and treatment in the hospital. 10/25 10:43 Order name: Basic Metabolic Panel; Complete Time: 12:50 trinidad 10/25 10:43 Order name: CBC with Diff; Complete Time: 12:50 [place] 10/25 10:43 Order name: LFT's; Complete Time: 12:50 [facility] 10/25 10:43 Order name: Magnesium; Complete Time: 12:50 [facility] 10/25 10:43 Order name: NT PRO-BNP; Complete Time: 12:50 [place] 10/25 10:43 Order name: PT-INR; Complete Time: 12:50 [facility] 10/25 10:43 Order name: Troponin HS; Complete Time: 12:50 [facility] 10/25 10:43 Order name: Lipase; Complete Time: 12:50 [facility] 10/25 10:43 Order name: Blood Culture Adult (2) [facility] 10/25 10:43 Order name: Lactate w/ 2H reflex if indic.; Complete Time: 12:50 [facility] 10/25 10:43 Order name: COVID-19/FLU A+B; Complete Time: 12:50 [facility] 10/25 10:43 Order name: Urine Culture trinidad 10/25 10:43 Order name: Urine Microscopic Only 10/25 10:47 Order name: TSH; Complete Time: 12:50 ld1 10/25 10:43 Order name: XRAY Chest (1 view); Complete Time: 12:50 [facility] 10/25 10:43 Order name: EKG; Complete Time: 10:44 [facility] 10/25 10:43 Order name: Cardiac monitoring; Complete Time: 10:48 [facility] 10/25 10:43 Order name: EKG - Nurse/Tech; Complete Time: 10:48 [place] 10/25 10:43 Order name: IV Saline Lock; Complete Time: 11:01 [place]in[place] 10/25 10:43 Order name: Labs collected and sent; Complete Time: 11:01 [facility] 10/25 10:43 Order name: O2 Per Protocol; Complete Time: 10:48 [place]in[place] 10/25 10:43 Order name: O2 Sat Monitoring; Complete Time: 10:48 [place] 10/25 11:56 Order name: CBC Smear Scan; Complete Time: 12:50 EDMS 10/25 13:38 Order name: CT Chest Abdomen Pelvis W/O Contrast trinidad 10/25 14:00 Order name: CONS Physician Consult EDMS EC:43 Rate is 94 beats/min. Rhythm is irregularly irregular. QRS [place] is Normal. MS interval trinidad is normal. QRS interval is normal. QT interval is normal. No Q waves. T waves are Normal. No ST changes noted. Clinical impression: Atrial Fibrillation and No evidence of ischemia. Interpreted by me. Reviewed by me. Administered Medications: 10:59 Drug: NS 0.9% 1000 ml Route: IV; Rate: 1 bolus; Site: right antecubital; ld1 13:00 Follow up: Response: No adverse reaction; IV Status: Infusion continued ld1 11:35 Drug: Rocephin (cefTRIAXone) 1 grams Route: IV; Rate: per protocol; Site: right ld1 antecubital; 12:00 Follow up: Response: No adverse reaction ld1 Disposition Summary: 10/25/22 13:49 Hospitalization Ordered Hospitalization Status: Inpatient Admission trinidad Provider: Ranjit Eagle cha Location: Telemetry/MedSurg (Inpatient) trinidad Condition: Fair trinidad Problem: new trinidad Symptoms: have improved trinidad Bed/Room Type: Standard trinidad Room Assignment: 218(10/25/22 19:07) eb1 Diagnosis - Dyspnea trinidad - End stage renal disease - on HD trinidad - Weakness trinidad - Anemia, unspecified trinidad - Hypotension, unspecified trinidad - Chronic atrial fibrillation trinidad Forms: - Medication Reconciliation Form trinidad - SBAR form trinidad Signatures: Dispatcher [employer] EDTX Adrian Lin MD MD cha Prokisch, Amanda RN RN ap3 Otilia Palmer RN RN eb1 Awa Hidalgo RN RN ld1 Corrections: (The following items were deleted from the chart) 19: 13:49 trinidad eb1
--- NOTE | 2022-10-25 13:50 | ER ---
Nurse's Notes [facility] Name: Kassie De Jesus Age: 67 yrs Sex: Female : 1955 Arrival Date: 10/25/2022 Time: 10:[address] Private MD: Ranjit Eagle Diagnosis: Dyspnea;End stage renal disease-on HD;Weakness;Anemia, unspecified;Hypotension, unspecified;Chronic atrial fibrillation Presentation: 10/25 10:45 Chief complaint: Patient states: she was sent to the ER by her home health nurse due to ap3 her blood pressure being low. patient states her blood pressure was 100/50, and she has been having a hard time keeping her oxygen up with her home O2. patient reports her SpO2 at home has been in the low 90s. Coronavirus screen: At this time, the client does not indicate any symptoms associated with coronavirus-19. Ebola Screen: No symptoms or risks identified at this time. Initial Sepsis Screen: Does the patient meet any 2 criteria? No. Patient's initial sepsis screen is negative. Does the patient have a suspected source of infection? No. Patient's initial sepsis screen is negative. Risk Assessment: Do you want to hurt yourself or someone else? Patient reports no desire to harm self or others. Onset of symptoms was October 25, 2022. 10:45 Method Of Arrival: Wheelchair ap3 10:45 Acuity: LENI 3 ap3 Triage Assessment: 10:52 General: Appears in no apparent distress. Behavior is cooperative. Pain: Denies pain. ap3 Neuro: Level of Consciousness is awake, alert, obeys commands, Oriented to person, place, time, situation, Speech is normal. Cardiovascular: Patient's skin is warm and dry. Rhythm is atrial fibrillation. Respiratory: Airway is patent Respiratory effort is even, unlabored, Respiratory pattern is regular, symmetrical. Historical: - Allergies: 10:49 Bactrim; ap3 10:49 cefepime; ap3 10:49 Codeine; ap3 10:49 Levofloxacin; ap3 10:49 Morphine; itching; ap3 10:49 PENICILLINS; ap3 10:49 QUINOLONES; ap3 - Home Meds: 10:49 amiodarone 200 mg Oral tab 1 tab 2 times per day [Active]; metoprolol tartrate 25 mg ap3 Oral tab .5 tab 2 times per day [Active]; - PMHx: 10:49 Atrial fibrillation; Congestive heart failure; Dialysis; High Cholesterol; Hypertensive ap3 disorder; stage 4 kidney failure; - PSHx: 10:49 back surgery; Dialysis catheter LEFT upper chest; ap3 - Immunization history:: Client reports having NOT received the Covid vaccine. - Social history:: Smoking status: Patient denies any tobacco usage or history of. Screenin:52 Abuse screen: Denies threats or abuse. Nutritional screening: No deficits noted. ap3 Tuberculosis screening: No symptoms or risk factors identified. 11:00 [facility] ED Fall Risk Assessment (Adult) History of falling in the last 3 months, ld1 including since admission No falls in past 3 months (0 pts). Assessment: 11:00 General: Appears in no apparent distress. comfortable, Behavior is calm, cooperative, ld1 appropriate for age. Pain: Complains of pain in back Pain does not radiate. Pain currently is 7 out of 10 on a pain scale. Quality of pain is described as aching, throbbing. Neuro: Level of Consciousness is awake, alert, obeys commands, Oriented to person, place, time, situation. Cardiovascular: Capillary refill < 3 seconds Patient's skin is warm and dry. Cardiovascular: Rhythm is atrial fibrillation. Respiratory: GI: Abdomen is round non-distended. : No signs and/or symptoms were reported regarding the genitourinary system. EENT: No signs and/or symptoms were reported regarding the EENT system. Derm: No signs and/or symptoms reported regarding the dermatologic system. Musculoskeletal: No signs and/or symptoms reported regarding the musculoskeletal system. 11:11 Cardiovascular: Dialysis shunt: in the anterior aspect of left upper chest, patient ap3 goes to dialysis Sunday, and Sunday . :. 14:57 Reassessment: Patient appears in no apparent distress at this time. Patient and/or ld1 family updated on plan of care and expected duration. Pain level reassessed. Patient is alert, oriented x 3, equal unlabored respirations, skin warm/dry/pink. 19:27 Reassessment: Patient appears in no apparent distress at this time. Patient and/or jb4 family updated on plan of care and expected duration. Pain level reassessed. Patient is alert, oriented x 3, equal unlabored respirations, skin warm/dry/pink. attempted to call report, instructed to wait for call back. Vital Signs: 10:45 BP 111 / 63; Pulse 88; Resp 19; Temp 98.1; Pulse Ox 98% 4 lpm ; Weight 104.33 kg; ap3 Height 5 ft. 7 in. (170.18 cm); 10:59 BP 116 / 62; Pulse 90; Resp 18; Pulse Ox 98% on 4 lpm NC; ld1 12:46 BP 94 / 71; Pulse 100; Resp 18; Pulse Ox 94% on R/A; ld1 13:47 BP 105 / 46; Pulse 99; Resp 18; Pulse Ox 96% on R/A; ld1 14:57 BP 101 / 50; Pulse 121; Resp 20; Pulse Ox 99% on 4 lpm NC; ld1 19:00 BP 117 / 87; Pulse 107; Resp 20; Pulse Ox 94% on 3 lpm NC; jb4 10:45 Body Mass Index 36.02 (104.33 kg, 170.18 cm) ap3 10:45 patient wears 4liters at home ap3 ED Course: 10:26 Patient arrived in ED. rg4 10:26 Ranjit Eagle MD is Private Physician. rg4 10:36 Awa Hidalgo RN is Primary Nurse. ld1 10:38 Adrian Lin MD is Attending Physician. trinidad 10:49 Triage completed. ap3 10:53 Arm band placed on left wrist. ap3 10:53 Patient has correct armband on for positive identification. Placed in gown. Bed in low ap3 position. Call light in reach. Side rails up X 1. Adult w/ patient. security monitor on. Pulse ox on. NIBP on. Door closed. Noise minimized. Warm blanket given. 10:57 Initial lab(s) drawn, by me, sent to lab. First set of blood cultures drawn by salma broderick Second set of blood cultures drawn by DEION broderick swab sent to lab. 11:00 No provider procedures requiring assistance completed. Inserted saline lock: 20 gauge ld1 in right antecubital area, using aseptic technique. Blood collected. 11:09 XRAY Chest (1 view) In Process Unspecified. EDMS 11:40 Inserted saline lock: 22 gauge in right wrist, using aseptic technique. zm 13:47 Ranjit Eagle MD is Hospitalizing Provider. [facility] 13:53 CT Chest Abdomen Pelvis W/O Contrast In Process Unspecified. EDMS Administered Medications: 10:59 Drug: NS 0.9% 1000 ml Route: IV; Rate: 1 bolus; Site: right antecubital; ld1 13:00 Follow up: Response: No adverse reaction; IV Status: Infusion continued ld1 11:35 Drug: Rocephin (cefTRIAXone) 1 grams Route: IV; Rate: per protocol; Site: right ld1 antecubital; 12:00 Follow up: Response: No adverse reaction ld1 Medication: 10:53 VIS not applicable for this client. ap3 Outcome: 13:49 Decision to Hospitalize by Provider. trinidad 20:00 Patient left the ED. jb4 Signatures: Dispatcher [employer] EDMS Adrian Lin MD MD cha Garcia, Rubi rg4 Nathan Wright RN RN jb4 Chelsey Brower RN RN ap3 Awa Hidalgo RN RN ld1 Ana Gerard7 Edilma Porras zm
--- NOTE | 2022-10-25 14:14 | RAD REPORT ---
EXAM DESCRIPTION: CT - Chest Abd Pelvis Wo Con - 10/25/2022 1:51 pm CLINICAL HISTORY: Chest and abdominal pain COMPARISON: July 2022 TECHNIQUE: Computed axial tomography of the chest, abdomen and pelvis was obtained. Oral contrast wa s given. IV contrast was not requested. All CT scans are performed using dose optimization technique as appropriate and may include automated exposure control or mA/KV adjustment according to patient size. FINDINGS: The evaluation of mediastinum, lily, vessels and solid organs is limited secondary to the lack of IV contrast administration Mild right basilar lung atelectasis. Left lung is clear. No mediastinal or hilar lymphadenopathy is seen. A pleural effusion is not present. A pericardial effusion is not seen. 14.4 centimeter cystic mass right abdomen minimally enlarged. Cholecystectomy with chronic pneumobilia. Liver, spleen, pancreas and adrenals appear grossly normal. Left renal calculi. 12 millimeter calculus left UPJ with mild to moderate left hydronephrosis. Renal cortical thinning. This is without significant change from prior exam. There is no evidence of diverticulitis. Multiple old and subacute vertebral compression fracture is unchanged. IMPRESSION: No acute abnormality of the chest Slight enlargement of a 14.4 centimeter fluid collection/simple cystic mass right abdomen Left renal calculi with moderate left hydronephrosis
[2022-10-25] MEDS ORDERED: ACETAMINOPHEN 325 MG TABLET PO PRN (15:44)
[2022-10-25] MEDS ORDERED: ALBUTEROL 2.5 MG/3 ML NEB SOL NEB PRN (15:44)
[2022-10-25] MEDS ORDERED: IPRATROPIUM BROM 0.5MG/2.5ML NEB PRN (15:44)
[2022-10-25] MEDS ORDERED: ONDANSETRON 4 MG/2 ML VIAL IV PRN (15:44)
[2022-10-25 15:50] VITALS: BMI 39.3
[2022-10-25] MEDS ORDERED: MORPHINE 4 MG/ML SYR IV PRN (16:15)
--- NOTE | 2022-10-25 16:21 | P.HP ---
Certification for Inpatient Patient admitted to: Observation With expected LOS: <2 Midnights Patient will require the following post-hospital care: None Practitioner: I am a practitioner with admitting privileges, knowledge of patient current condition, hospital course, and medical plan of care. Services: Services provided to patient in accordance with Admission requirements found in Title 42 Section 412.3 of the Code of Federal Regulations Patient History Date of Service: 10/25/22 Primary Care Provider: [facility]co Reason for admission: Nausea, esrd History of Present Illness: Patient a frequent patient of mine. She recently left [place] over the holiday weekend. She states here home health nurse told her to come in for low sbp of 105. She had one low blood pressure in the ER She complaints of nausea. states she has been vomiting for the last 3-4 days. She has not vomited in the ER. She has been compliant with dialysis. She has a clear chest xray Allergies cefepime Allergy (Verified 10/26/21 06:30) Hives codeine Allergy (Verified 05/20/22 05:03) Itching levofloxacin Allergy (Verified 10/26/21 06:30) Hives/Rash morphine Allergy (Verified 05/20/22 05:03) Itching Penicillins Allergy (Verified 10/26/21 06:30) Hives/Rash sulfamethoxazole [From Bactrim] Allergy (Verified 05/20/22 05:03) Hives trimethoprim [From Bactrim] Allergy (Verified 05/20/22 05:03) Hives Home Medications: Apixaban [Eliquis] 2.5 mg PO BID 05/19/22 Bumetanide 1 tab PO DAILY 05/19/22 Digoxin [Lanoxin] 1 tab PO T,TH,S 05/19/22 Metoprolol Tartrate 1 tab PO BID 05/19/22 Midodrine HCl 1 tab PO TID 05/19/22 Pantoprazole [Protonix Tab*] 1 tab PO BID 05/19/22 Sevelamer Carbonate [Renvela] 800 mg PO TID 05/19/22 Dicyclomine [Bentyl*] 1 tab PO TID PRN 09/01/22 Ondansetron [Zofran (Odt)*] 8 mg PO TID PRN 09/01/22 Tizanidine [Zanaflex*] 1 tab PO BID 09/01/22 Amiodarone HCl [Cordarone*] 200 mg PO BID 90 Days #180 tab 10/20/22 Metoprolol Tartrate [Lopressor*] 12.5 mg PO BID 6AM 6PM 90 Days #180 tab 10/20/22 - Past Medical/Surgical History Has patient received pneumonia vaccine in the past: Yes Diabetic: No -: Chronic hypotension -: Hyperlipidemia -: Chronic anticoagulation use -: History of nephrolithiasis requiring stent placement -: Recurrent UTI -: End-stage renal disease -: CHF -: HTN -: A-Fib -: tubal ligation -: dialysis port -: cholecystectomy -: right broken wrist -: lasik -: cataracts removed - Family History Sister -: Cancer Notes: per pt, sister has lung cancer and is being treated for a "spot on her brain" - Social History Smoking Status: Never smoker Alcohol use: No CD- Drugs: No Caffeine use: Yes Review of Systems Gastrointestinal: Nausea, Vomiting Physical Examination - Vital Signs Temperature: 97.6 F Blood Pressure: 121/85 Pulse: 106 Respirations: 18 Pulse Ox (%): 93 - Physical Exam General: Alert, In no apparent distress HEENT: Atraumatic, PERRLA, Mucous membr. moist/pink, EOMI, Sclerae nonicteric Neck: Supple, 2+ carotid pulse no bruit, No LAD, Without JVD or thyroid abnormality Respiratory: Clear to auscultation bilaterally, Normal air movement Cardiovascular: Regular rate/rhythm, Normal S1 S2 Gastrointestinal: Normal bowel sounds, No tenderness Musculoskeletal: No tenderness Integumentary: No rashes Neurological: Normal gait, Normal speech, Normal strength at 5/5 x4 extr, Normal tone, Normal affect Lymphatics: No axilla or inguinal lymphadenopathy - Studies Laboratory Data (last 24 hrs) 10/25/22 10:57: PT 21.8 H, INR 1.98 10/25/22 10:57: WBC 9.40, Hgb 8.4 L, Hct 26.6 L, Plt Count 223 10/25/22 10:57: Sodium 138, Potassium 4.0, BUN 41 H, Creatinine 5.86 H*, Glucose 127 H, Magnesium 2.2, Total Bilirubin 1.0, AST < 3 L, ALT < 10 L, Alkaline Phosphatase 135 H, Lipase 117 Assessment and Plan - Problems (Diagnosis) (1) Nausea & vomiting Current Visit: Yes Status: Acute Plan: will treat the patient with zofran. She is doing better at this point. Qualifiers: Vomiting type: unspecified Qualified Code(s): R11.2 - Nausea with vomiting, unspecified (2) Atrial fibrillation Current Visit: No Status: Acute Plan: she is slightly elevated. Will restart her digoxin and metoprolol Qualifiers: Atrial fibrillation type: paroxysmal (3) Back pain Current Visit: No Status: Chronic Plan: she has had tramadol in the past. Will give her this with some IV morphine. I think this is the main reason she has come in. Her other symptoms do not seem as serious Qualifiers: Back pain location: low back pain Chronicity: chronic (4) CHF (congestive heart failure) Current Visit: No Status: Chronic Plan: currently stable. She has had dialysis and has had a clear xray. Qualifiers: Heart failure type: diastolic Heart failure chronicity: chronic Qualified Code(s): I50.32 - Chronic diastolic (congestive) heart failure (5) ESRD (end stage renal disease) on dialysis Current Visit: No Status: Chronic Plan: consult to Dr. Powers. She is a TTS scheduled dialysis Discharge Plan: Home Plan to discharge in: 24 Hours - Advance Directives Does patient have a Living Will: No Does patient have a Durable POA for Healthcare: No - Code Status/Comfort Care Code Status Assessed: Yes Code Status: Full Code Physician Review: Patient Assessed, Agree with Above Assessment and Plan Critical Care: No Time Spent Managing Pts Care (In Minutes): 25
[2022-10-25] MEDS: PANTOPRAZOLE 40MG TABLET PO SCH (16:30)
[2022-10-25] MEDS ORDERED: ONDANSETRON 4 MG/2 ML VIAL ONE (16:38)
[2022-10-25] MEDS ORDERED: TRAMADOL 37.5mg/APAP 325mg PER TAB ONE (16:48)
[2022-10-25] MEDS: TRAMADOL 37.5mg/APAP 325mg PER TAB PO SCH (16:53)
[2022-10-25] MEDS: SEVELAMER CARBONATE 800 MG TABLET PO SCH (17:00)
[2022-10-25] MEDS ORDERED: FUROSEMIDE 20 MG/ 2ML VIAL IV SCH (17:00)
[2022-10-25] MEDS ORDERED: INFLUENZA VACCINE (for 6+ mo) 0.5 ML DOSE IMVAC ONE (17:00)
[2022-10-25] MEDS ORDERED: PNEUMOCOCCAL VACCINE 0.5 ML IMVAC ONE (17:00)
[2022-10-25] MEDS ORDERED: PANTOPRAZOLE 40 MG INJ ONE (17:35)
[2022-10-25] MEDS: METOPROLOL TAR 25 MG TAB PO SCH (20:59)
[2022-10-25] MEDS: APIXABAN 2.5 MG TABLET PO SCH (21:00)
[2022-10-25] MEDS: AMIODARONE HCL 200 MG TAB PO SCH (21:00)
[2022-10-26] MEDS: TRAMADOL 37.5mg/APAP 325mg PER TAB PO SCH ×2 (01:15→09:24)
[2022-10-26 05:44] LABS: Absolute Lymphocytes (CBC) 1.1 K/uL (0.7-4.9); Hematocrit 27.9 % (36.0-45.0); Lymphocytes % 8.6 % (15.3-44.8); MPV 8.1 fL (7.6-11.3); RBC Red Blood Cell Count 2.85 M/uL (3.86-4.86)
[2022-10-26 06:00] LABS: Potassium 4.6 mmol/L (3.5-5.1)
--- NOTE | 2022-10-26 08:03 | P.DS ---
Admission Date: 10/25/22 Discharge Date: 10/26/22 Primary Care Provider: Fco Disposition: ROUTINE DISCHARGE Discharge Condition: GOOD Reason for Admission: Nausea, esrd - Problems (1) Nausea & vomiting Current Visit: Yes Status: Acute Qualifiers: Vomiting type: unspecified Qualified Code(s): R11.2 - Nausea with vomiting, unspecified (2) Atrial fibrillation Current Visit: No Status: Acute Qualifiers: Atrial fibrillation type: paroxysmal (3) Back pain Current Visit: No Status: Chronic Qualifiers: Back pain location: low back pain Chronicity: chronic (4) CHF (congestive heart failure) Current Visit: No Status: Chronic Qualifiers: Heart failure type: diastolic Heart failure chronicity: chronic Qualified Code(s): I50.32 - Chronic diastolic (congestive) heart failure (5) ESRD (end stage renal disease) on dialysis Current Visit: No Status: Chronic Brief History of Present Illness: Patient a frequent patient of [facility]. She recently left a over the holiday weekend. She states here home health nurse told her to come in for low sbp of 105. She had one low blood pressure in the ER She complaints of nausea. states she has been vomiting for the last 3-4 days. She has not vomited in the ER. She has been compliant with dialysis. She has a clear chest xray Hospital Course: patient was admitted for nausea. Her heart rate is controlled this morning. She is still complainting of nausea and has been having constipation. Will have her follow up in the office. Will try a trial of phenergan and linzess. We may try other meds in the future. Vital Signs/Physical Exam: Temp Pulse Resp BP Pulse Ox 97.1 F 86 20 104/64 94 10/26/22 04:00 10/26/22 04:00 10/26/22 04:00 10/26/22 04:00 10/26/22 04:00 General: Alert, In no apparent distress HEENT: Atraumatic, PERRLA, EOMI Neck: Supple, JVD not distended Respiratory: Clear to auscultation bilaterally, Normal air movement Cardiovascular: Regular rate/rhythm, Normal S1 S2 Gastrointestinal: Normal bowel sounds, No tenderness Musculoskeletal: No tenderness Integumentary: No rashes Neurological: Normal speech, Normal tone, Normal affect Lymphatics: No axilla or inguinal lymphadenopathy Laboratory Data at Discharge: WBC 12.30 K/uL (4.3-10.9) H 10/26/22 05:15 Hgb 8.6 g/dL (12.0-15.0) L 10/26/22 05:15 Hct 27.9 % (36.0-45.0) L 10/26/22 05:15 Plt Count 244 K/uL (152-406) 10/26/22 05:15 PT 21.8 SECONDS (9.5-12.5) H 10/25/22 10:57 INR 1.98 10/25/22 10:57 Sodium 134 mmol/L (136-145) L 10/26/22 05:15 Potassium 4.6 mmol/L (3.5-5.1) D 10/26/22 05:15 BUN 49 mg/dL (7-18) H 10/26/22 05:15 Creatinine 6.21 mg/dL (0.55-1.02) H* 10/26/22 05:15 Glucose 111 mg/dL (74-106) H 10/26/22 05:15 Magnesium 2.2 mg/dL (1.6-2.4) 10/25/22 10:57 Total Bilirubin 1.0 mg/dL (0.2-1.0) 10/25/22 10:57 AST < 3 U/L (15-37) L 10/25/22 10:57 ALT < 10 U/L (13-56) L 10/25/22 10:57 Alkaline Phosphatase 135 U/L (45-117) H 10/25/22 10:57 Lipase 117 U/L (73-393) 10/25/22 10:57 Home Medications: Apixaban [Eliquis] 2.5 mg PO BID 05/19/22 Bumetanide 1 tab PO DAILY 05/19/22 Midodrine HCl 1 tab PO TID 05/19/22 Pantoprazole [Protonix Tab*] 1 tab PO ONCE 05/19/22 Sevelamer Carbonate [Renvela] 800 mg PO TID 05/19/22 Amiodarone HCl [Cordarone*] 200 mg PO BID 90 Days #180 tab 10/20/22 Alendronate Sodium 70 mg PO 1X 10/25/22 Gabapentin 300 mg PO DAILY 01/04/23 Linaclotide [Linzess] 72 mcg PO DAILY AFTER SUPPER 90 Days #90 tab 10/26/22 Promethazine Tab [Phenergan] 25 mg PO Q6HP PRN 30 Days #90 tab 10/26/22 New Medications: Linaclotide [Linzess] 72 mcg PO DAILY AFTER SUPPER 90 Days #90 tab Promethazine Tab [Phenergan] 25 mg PO Q6HP PRN 30 Days #90 tab PRN Reason: Nausea / Vomiting Diet: Renal Activity: Ad mari Followup: Ranjit Eagle MD [Primary Care Provider] - Time spent managing pt's care (in minutes): 30
[2022-10-26] MEDS ORDERED: DIGOXIN 0.125 MG TABLET PO SCH (09:00)
[2022-10-26] MEDS: AMIODARONE HCL 200 MG TAB PO SCH (09:23)
[2022-10-26] MEDS: PANTOPRAZOLE 40MG TABLET PO SCH (09:23)
[2022-10-26] MEDS: SEVELAMER CARBONATE 800 MG TABLET PO SCH ×2 (09:23→11:52)
[2022-10-26] MEDS: APIXABAN 2.5 MG TABLET PO SCH (09:24)
[2022-10-26] MEDS: METOPROLOL TAR 25 MG TAB PO SCH (09:27)
[2022-10-26 10:28] VITALS: O2SAT 99
[2022-10-26 12:29] VITALS: BP 122/82; TEMP 97.1
--- NOTE | 2022-10-26 15:25 | EKG ---
Test Date: 2022-10-25 Test Time: 10:43:14 Economic Development Manager: PUMA MEASUREMENT RESULTS: Intervals: Rate: 94 NV: QRSD: 86 QT: 348 QTc: 435 [place]: P: NV: QRS: 72 T: -53 INTERPRETIVE STATEMENTS: Atrial fibrillation Nonspecific ST and T wave abnormality Abnormal ECG Compared to ECG 10/18/2022 11:12:05 No significant changes Electronically Signed On 10-26-22 15:22:09 EEO OFFICER by Quentin Chamberlain
--- NOTE | 2022-10-26 16:41 | CON ---
Date of Consultation: 10/26/2022 Reason For Consultation: Elevated BUN, creatinine, fluid management. History Of Present Illness: This is a pleasant 67-year-old female, well known to me from dialysis wi th significant past medical history of end-stage renal disease, on hemodialysis, TTS; hypertension; h yperlipidemia; nephrolithiasis. Patient was in her regular state of health, came to the hospital com plaining of nausea and vomiting. Patient was treated symptomatically. Her nausea subsided, vomiting resolved. Patient is supposed to have dialysis today. Lab showed elevation in BUN, creatinine, and hyponatremia. For that reason, we have been consulted. Past Medical History: Includes: 1.Nephrolithiasis. 2.Hypertension. 3.Hyperlipidemia. 4.End-stage renal disease. Past Surgical History: Urethral stent placement. Family History: Positive for hypertension. Social History: Denies smoking, denies drinking, denies drug abuse. Allergies: CEFEPIME, LEVAQUIN, AND PENICILLIN. Review of Systems: Head and Neck: No red eye. No ear pain. GI: Has nausea, vomiting. No abdominal pain. : No polyuria, no dysuria, no hematuria. DETAILER: No vaginal discharge. RESPIRATORY: No shortness of breath, on room air. CARDIOVASCULAR: No chest pain. ENDOCRINE: No polydipsia. SKIN: No rash. Home Medications: Include Renvela, promethazine, pantoprazole, midodrine, gabapentin, Bumex 1 mg, El iquis, amiodarone, and alendronate. Current Medications: In the hospital include amiodarone, digoxin, metoprolol 25 b.i.d., Tylenol, Kostas bella 800 with each meal, ipratropium, pantoprazole, and Zofran. Physical Examination: Vital Signs: When I saw the patient blood pressure 122/82, pulse of 82, afebrile. Chest: Clear to auscultation. Heart: S1, S2 regular. Abdomen: Soft, nontender. Extremities: Trace edema. Neuro: Alert, oriented. No focality. Laboratory Data: Sodium 134, potassium 4.6, bicarb 25, BUN 49, creatinine 6.2, calcium of 9. Hemogl obin of 8.6. Assessment And Plan: 1.End-stage renal disease with hyponatremia. Normal volume with electrolyte imbalance. We will arr edy for dialysis today. 2.Over volume, chronic, currently normal volume. We will continue dialysis Sunday, , and . 3.Hyponatremia, dilutional, going to be corrected with dialysis. 4.Hypertension, controlled, optimal. Continue current treatment. 5.Anemia of chronic kidney disease. Continue SABIHA. 6.Gastroenteritis. Continue symptomatic treatment. Follow up with primary. SANAZ Voice ID: [id number] Report ID: [id number]
== END 2022-10-26 15:25 | disposition home or self-care (01) ==
LOC: ER 10:22 → ERHOLD 13:56 → INTOOBSV 13:56 → 2ND 19:16
PROVIDERS: ADMIT Internal Medicine; ATTEND Internal Medicine
DX: R11.2 Nausea with vomiting, unspecified (principal); I48.0 Paroxysmal atrial fibrillation; M54.50 Low back pain, unspecified; I50.32 Chronic diastolic (congestive) heart failure; N18.6 End stage renal disease; I10 Essential (primary) hypertension; E78.5 Hyperlipidemia, unspecified; N20.0 Calculus of kidney; E87.1 Hypo-osmolality and hyponatremia; D63.1 Anemia in chronic kidney disease; K59.00 Constipation, unspecified; K52.9 Noninfective gastroenteritis and colitis, unspecified; Z88.6 Allergy status to analgesic agent; Z99.2 Dependence on renal dialysis; Z88.0 Allergy status to penicillin; Z20.822 Contact with and (suspected) exposure to COVID-19
CPT/HCPCS: 96361; 93005; 87040 ×2; 85025 ×2; 80048 ×2; 36415; 83735; 85610; 80076; 83605; 84443; 84484; 83690; 83880; 0240U; 71250; 74176; 71045; 96374; 99284; C9113; J7030; J2405; G0378 ×3

== ENCOUNTER 2022-10-31 11:56 | Inpatient (IN) | payer OTHER, BC ==
--- OUTSIDE RECORDS SUMMARY | 2022-10-31 12:24 | XMS REPORT | Continuity of Care Document ---
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 [facility] (ZANAFLEX) 9-01 tablet (4 st 4 MG tablet 00:00: mg total) H ospita 00 by mouth 2 l (two) times a day as needed for muscle spasms. tiZANidine 2022-0 Yes 4mg Q.5D Take 1 [facility] (ZANAFLEX) 9-01 tablet (4 st 4 MG tablet 00:00: mg total) H [facility]spita 00 by mouth 2 l (two) times a day as needed for muscle spasms. promethazin 2022-0 Yes 25mg Q6H Take 1 Meth aiden e 8-01 tablet (25 st (PHENERGAN) 00:00: mg total) H [facility]spita 25 MG 00 by mouth l tablet every 6 (six) hours as needed for vomiting or nausea. promethazin 2022-0 Yes 25mg Q6H Take 1 Meth aiden e 8-01 tablet (25 st (PHENERGAN) 00:00: mg total) H [facility]spita 25 MG 00 by mouth l tablet every 6 (six) hours as needed for vomiting or nausea. promethazin 2022-0 Yes 50mg Q.[id number] Take 1 [facility] e 7-28 [id number] tablet (50 st (PHENERGAN) 00:00: 3D mg total) H ospita 50 MG 00 by mouth 3 l tablet (three) times a day as needed for nausea or vomiting. promethazin Yes 50mg Q.[id number] Take 1 [facility] e 05-18 [id number] tablet (50 st (PHENERGAN) 00:00: 3D mg total) H [facility]spita 50 MG 00 by mouth 3 l tablet (three) times a day as needed for nausea or vomiting. diclofenac 0 Yes 75mg Q.5D Take 1 [facility] (VOLTAREN) 7-26 tablet (75 st 75 MG EC 00:00: mg total) [facility] tablet 00 by mouth 2 l (two) times a day. diclofenac 0 Yes 75mg Q.5D Take 1 Metho di (VOLTAREN) 7-26 tablet (75 st 75 MG EC 00:00: mg total) [facility] tablet 00 by mouth 2 l (two) times a day. fluconazole Yes 150mg Q7D Take 1 Met [facility] (DIFLUCAN) 7-[address] 150 MG 00:00: (150 mg Hospita tablet 00 total) by l mouth once a week. On Sunday fluconazole Yes 150mg Q7D Take 1 Met [...] mouth Hospita tablet 54 :00 daily. l DULoxetine 2021- No 60mg QD Take 60 [...] 54 :00 daily. l Zithromax Yes See [employer] 250 6-29 Instructio l mg oral 21:14: ns, Take 2 Herm connie tablet 00 tablets by mouth the first day then 1 tablet by mouth days 2-5. (Pt is on hemodialys is)., X 5 day, # 6 tab, 0 Refill(s), Pharmacy: [facility], 170.18, cm, 04/19/22 14:52:00 CDT, Height, 106.818, kg, 04/19/22 14... Zithromax 2021-0 Yes See [employer] 250 6-29 Instructio l mg oral 21:14: ns, Take 2 Herm connie tablet 00 tablets by mouth the first day then 1 tablet by mouth days 2-5. (Pt is on hemodialys is)., X 5 day, # 6 tab, 0 Refill(s), Pharmacy: [facility], 170.18, cm, 04/19/22 14:52:00 CDT, Height, 106.818, kg, 04/19/22 14... Zithromax 0 Yes See [employer] 250 6-29 Instructio l mg oral 21:14: ns, Take 2 Herm connie tablet 00 tablets by mouth the first day then 1 tablet by mouth days 2-5. (Pt is on hemodialys is)., X 5 day, # 6 tab, 0 Refill(s), Pharmacy: [facility], 170.18, cm, 04/19/22 14:52:00 CDT, Height, 106.818, kg, 04/19/22 14... Zithromax 2022-0 Yes See [facility] [employer] 250 6-29 Instructio l mg oral 21:14: ns, Take 2 Herm connie tablet 00 tablets by mouth the first day then 1 tablet by mouth days 2-5. (Pt is on hemodialys is)., X 5 day, # 6 tab, 0 Refill(s), Pharmacy: [facility], 170.18, cm, 04/19/22 14:52:00 CDT, Height, 106.818, kg, 04/19/22 14... Zithromax 2022-0 Yes See [facility] [employer] 250 6-29 Instructio l mg oral 21:14: ns, Take 2 Herm connie tablet 00 tablets by mouth the first day then 1 tablet by mouth days 2-5. (Pt is on hemodialys is)., X 5 day, # 6 tab, 0 Refill(s), Pharmacy: [facility], 170.18, cm, 04/19/22 14:52:00 CDT, Height, 106.818, kg, 04/19/22 14... Zithromax 2022-0 Yes [facility]-29 Instructio l mg oral 21:14: ns, Take 2 Herm connie tablet 00 tablets by mouth the first day then 1 tablet by mouth days 2-5. (Pt is on hemodialys is)., X 5 day, # 6 tab, 0 Refill(s), Pharmacy: [facility], 170.18, cm, 04/19/22 14:52:00 CDT, Height, 106.818, kg, 04/19/22 14... Zithromax 2022-0 Yes See [facility] [employer] [facility] 250 6-29 Instructio l mg oral 21:14: ns, Take 2 Herm connie tablet 00 tablets by mouth the first day then 1 tablet by mouth days 2-5. (Pt is on hemodialys is)., X 5 day, # 6 tab, 0 Refill(s), Pharmacy: [facility], 170.18, cm, 04/19/22 14:52:00 CDT, Height, 106.818, kg, 04/19/22 14... Zithromax 2022-0 Yes See [facility] 250 6-29 Instructio l mg oral 21:14: ns, Take 2 Herm connie tablet 00 tablets by mouth the first day then 1 tablet by mouth days 2-5. (Pt is on hemodialys is)., X 5 day, # 6 tab, 0 Refill(s), Pharmacy: [facility] [place], 170.18, cm, 04/19/22 14:52:00 CDT, Height, 106.818, kg, 04/19/22 14... Velphoro 2022-0 Yes 500 mg, Memori a 6-29 CHEW, l 20:13: Daily, [place] 00 take with food, 0 Refill(s) Velphoro 2022-0 Yes 500 mg, Memori a 6-29 CHEW, l 20:13: Daily, [place] 00 take with food, 0 Refill(s) Velphoro 2022-0 Yes 500 mg, Memori a 6-29 CHEW, l 20:13: Daily, Denis 00 take with food, 0 Refill(s) Velphoro 2022-0 Yes 500 mg, Memori a 6-29 CHEW, l 20:13: Daily, [place] 00 take with food, 0 Refill(s) Velphoro 2022-0 Yes 500 mg, Memori a 6-29 CHEW, l 20:13: Daily, Denis 00 take with food, 0 Refill(s) Velphoro 2022-0 Yes 500 mg, Memori a 6-29 CHEW, l 20:13: Daily, [place] 00 take with food, 0 Refill(s) Velphoro 2022-0 Yes 500 mg, Memori a 6-29 CHEW, l 20:13: Daily, Denis 00 take with food, 0 Refill(s) Velphoro 2022-0 Yes 500 mg, Memori a 6-29 CHEW, l 20:13: Daily, Denis 00 take with food, 0 Refill(s) sevelamer 2022-0 Yes 2,400 mg = Me moria carbonate 6-29 3 tab, PO, l 800 mg oral 20:12: [employer]als, [place] tablet 00 # 270 tab, 0 Refill(s) sevelamer 2022-0 Yes 2,400 mg = Me moria carbonate 6-29 3 tab, PO, l 800 mg oral 20:12: [employer]ID-Meals, [place] tablet 00 # 270 tab, 0 Refill(s) [...] PO, l 800 mg oral 20:12: TID-Meals, [place] tablet 00 # 270 tab, 0 Refill(s) sevelamer 2021-0 Yes 2,400 mg = Me moria carbonate 6-29 3 tab, PO, l 800 mg oral 20:12: TID-Meals, [place] tablet 00 # 270 tab, 0 Refill(s) sevelamer 2021-0 Yes 2,400 mg = Me moria carbonate 6-29 3 tab, PO, l 800 mg oral 20:12: [employer]ID[employer]Meals, [place] tablet 00 # 270 tab, 0 Refill(s) sevelamer 2021-0 Yes 2,400 mg = Me moria carbonate 6-29 3 tab, PO, l 800 mg oral 20:12: TID-Meals, [place] tablet 00 # 270 tab, 0 Refill(s) pantoprazol 2021-0 Yes 40 mg = 1 M emoria e 40 mg 6-29 tab, PO, l oral 20:11: Daily, 0 Denis enteric 00 Refill(s) coated tablet pantoprazol 2021-0 Yes 40 mg = 1 M emoria e 40 mg 6-29 tab, PO, l oral 20:11: Daily, 0 [place] enteric 00 Refill(s) coated tablet pantoprazol 2021-0 Yes 40 mg = 1 M emoria e 40 mg 6-29 tab, PO, l oral 20:11: Daily, 0 Denis enteric 00 Refill(s) coated tablet pantoprazol 2021-0 Yes 40 mg = 1 M emoria e 40 mg 6-29 tab, PO, l oral 20:11: Daily, 0 [place] enteric 00 Refill(s) coated tablet pantoprazol 2021-0 Yes 40 mg = 1 M emoria e 40 mg 6-29 tab, PO, l oral 20:11: Daily, 0 Denis enteric 00 Refill(s) coated tablet pantoprazol 2021-0 Yes 40 mg = 1 M emoria e 40 mg 6-29 tab, PO, l oral 20:11: Daily, 0 [place] enteric 00 Refill(s) coated tablet pantoprazol 2021-0 Yes 40 mg = 1 M emoria e 40 mg 6-29 tab, PO, l oral 20:11: Daily, 0 [place] enteric 00 Refill(s) coated tablet pantoprazol 2021-0 Yes 40 mg = 1 M emoria e 40 mg 6-29 tab, PO, l oral 20:11: Daily, 0 [place] enteric 00 Refill(s) coated tablet oxyCODONE 5 [...] 00 Pain, prn, release 0 Refill(s) ondansetron 2-0 Yes 4 mg [...] Q12H, 0 [place] 00 Refill(s) metoprolol 2-0 Yes 25 mg = 1 Me moria tartrate 25 6-29 tab, PO, l mg oral 20:07: BID, 0 [place] tablet 00 Refill(s) metoprolol 2-0 Yes 25 [...] PO, l mg oral 20:07: BID, 0 [place] tablet 00 Refill(s) metoprolol 2-0 Yes 25 [...] BID, 0 Denis tablet 00 Refill(s) methocarbam 2022-0 Yes 250 mg = Me moria ol 500 mg 6-29 0.5 tab, l oral tablet 20:05: PO, TID, 0 [place] 00 Refill(s) methocarbam 2022-0 Yes 250 mg [...] tablet 20:05: PO, TID, 0 Refill(s) methocarbam 2-0 Yes 250 mg = Me moria ol 500 mg 6-29 0.5 tab, l oral tablet 20:05: PO, TID, 0 [place] 00 Refill(s) methocarbam 2-0 Yes 250 mg = Me moria ol 500 mg 6-29 0.5 tab, l oral tablet 20:05: PO, TID, 0 [place] 00 Refill(s) methocarbam 2021-0 Yes 250 mg = Me moria ol 500 mg 6-29 0.5 tab, l oral tablet 20:05: PO, TID, 0 Refill(s) Alphagan P 2021-0 Yes 1 drp, Memor ia 0.1% 6-29 OPTH, Q12H l ophthalmic 20:04: [place] solution folic acid 2021-0 Yes 1 mg, PO, Me moria 6-29 Daily, 0 l 20:04: Refill(s) Denis Alphagan P 2-0 Yes 1 drp, Memor ia 0.1% 6-29 OPTH, Q12H l ophthalmic 20:04: [place] solution folic acid 2021-0 Yes 1 mg, PO, Me moria 6-29 Daily, 0 l 20:04: Refill(s) Denis Alphagan P 2-0 Yes 1 drp, Memor ia 0.1% 6-29 OPTH, Q12H l ophthalmic 20:04: [place] solution 00 folic acid 2021-0 Yes 1 mg, PO, Me moria 6-29 Daily, 0 l 20:04: Refill(s) [place] Alphagan P 2-0 Yes 1 drp, Memor ia 0.1% 6-29 OPTH, Q12H l ophthalmic 20:04: [place] solution folic acid 2021-0 Yes 1 mg, PO, Me moria 6-29 Daily, 0 l 20:04: Refill(s) Denis 00 Alphagan P 2021-0 Yes 1 drp, Memor ia 0.1% 6-29 OPTH, Q12H l ophthalmic 20:04: Denis solution 00 folic acid 2021-0 Yes 1 mg, PO, Me moria 6-29 Daily, 0 l 20:04: Refill(s) Denis 00 Alphagan P 2021-0 Yes 1 drp, Memor ia 0.1% -29 OPTH, Q12H l ophthalmic 20:04: [place] solution 00 folic acid 2021-0 Yes 1 mg, PO, Me moria 6- Daily, 0 l 20:04: Refill(s) Denis 00 Alphagan P 2021-0 Yes 1 drp, Memor ia 0.1% -29 OPTH, Q12H l ophthalmic 20:04: [place] solution 00 folic acid 2021-0 Yes 1 mg, PO, Me moria - Daily, 0 l 20:04: Refill(s) Denis 00 Alphagan P 2021-0 Yes 1 drp, Memor ia 0.1% - OPTH, Q12H l ophthalmic 20:04: Denis solution 00 folic acid 2021-0 Yes 1 mg, PO, Me moria - Daily, 0 l 20:04: Refill(s) Denis 00 Oxygen 2021-0 Yes 1 btl, Memoria 6-29 MISC, l 20:03: Daily, 2 [place] 00 liters, 0 Refill(s) Oxygen 2021-0 Yes 1 btl, Memoria 6-29 MISC, l 20:03: Daily, 2 Denis 00 liters, 0 Refill(s) Oxygen 2021-0 Yes 1 btl, Memoria 6-29 MISC, l 20:03: Daily, 2 Denis 00 liters, 0 Refill(s) Oxygen 2021-0 Yes 1 btl, Memoria 6-29 MISC, l 20:03: Daily, 2 [place] 00 liters, 0 Refill(s) Oxygen 2021-0 Yes 1 btl, Memoria 6-29 MISC, l 20:03: Daily, 2 Denis 00 liters, 0 Refill(s) Oxygen 2021-0 Yes 1 btl, Memoria 6-29 MISC, l 20:03: Daily, 2 [place] 00 liters, 0 Refill(s) Oxygen 0 Yes 1 btl, Memoria 6-29 MISC, l 20:03: Daily, 2 [place] 00 liters, 0 Refill(s) Oxygen 2021-0 Yes 1 btl, Memoria 6-29 MISC, l 20:03: Daily, 2 [place] 00 liters, 0 Refill(s) Eliquis 2.5 0 Yes 2.5 mg, Mem oria mg oral 6-29 PO, Q12H, l tablet 20:02: tab, 0 [place] 00 Refill(s) Eliquis 2.5 0 Yes 2.5 mg, Mem oria mg oral 6-29 PO, Q12H, l tablet 20:02: tab, 0 [place] 00 Refill(s) Eliquis 2.5 0 Yes 2.5 mg, Mem oria mg oral 6-29 PO, Q12H, l tablet 20:02: tab, 0 Denis 00 Refill(s) Eliquis 2.5 0 Yes 2.5 mg, Mem oria mg oral 6-29 PO, Q12H, l tablet 20:02: tab, 0 [place] 00 Refill(s) Eliquis 2.5 0 Yes 2.5 mg, Mem oria mg oral 6-29 PO, Q12H, l tablet 20:02: tab, 0 Denis 00 Refill(s) Eliquis 2.5 0 Yes 2.5 mg, Mem oria mg oral 6-29 PO, Q12H, l tablet 20:02: tab, 0 [place] 00 Refill(s) Eliquis 2.5 0 Yes 2.5 mg, Mem oria mg oral 6-29 PO, Q12H, l tablet 20:02: tab, 0 Denis 00 Refill(s) Eliquis 2.5 0 Yes 2.5 mg, Mem oria mg oral 6-29 PO, Q12H, l tablet 20:02: tab, 0 Denis 00 Refill(s) doxycycline 2021-0 2021- No 200mg Q.5D Take 200 [facility] (VIBRAMYCIN 6-26 06-[address] ) 100 MG 13:07: 00:00 mouth 2 Hospi ta capsule 01 :00 (two) l times a day. Take 200mg (x2 100mg capsules). Per patient started taking March 29, 2022 glucosam/ch 2021-0 2021- No 1{tbl} Q.5D Take 1 M [facility] [place] [place]/C/m 04-16 tablet by [facility]/bos 13:07: 00:00 mouth 2 Hospi ta (OSTEO 01 :00 (two) l BI-FLEX times a TRIPLE day. STRENGTH ORAL) NON 2021- No 1{capsu QD Take 1 [facility] FORMULARY 04-16-25 le} capsule by st 13:07: 00:00 mouth Hospita 01 :00 nightly. l Patient takes young living probiotic with 17 billion active cultures doxycycline 2021- No 200mg Q.5D Take 200 [facility] (VIBRAMYCIN 6-26 06-[address] ) 100 MG 13:07: 00:00 mouth 2 Hospi ta capsule 01 :00 (two) l times a day. Take 200mg (x2 100mg capsules). Per patient started taking March 29, 2022 glucosam/ch 2021-0 2021- No 1{tbl} Q.5D Take 1 [facility] [facility] [place] [place] 04-16 tablet by [facility] 13:07: 00:00 mouth 2 Hospi ta (OSTEO 01 :00 (two) l BI-FLEX times a TRIPLE day. STRENGTH ORAL) NON 2021- No 1{capsu QD Take 1 [facility] FORMULARY 04-16-25 le} capsule by st 13:07: 00:00 mouth Hospita 01 :00 nightly. l Patient takes young living probiotic with 17 billion active cultures folic acid 2021- No 1mg QD Take 1 Meth aiden (FOLVITE) 1 04-15 tablet (1 st MG tablet 00:00: 04:59 mg total) Ho spita 00 :00 by mouth l daily for 30 days. folic acid 2021- No 1mg QD Take 1 Meth aiden (FOLVITE) 1 04-15 tablet (1 st MG tablet 00:00: 04:59 mg total) Ho spita 00 :00 by mouth l daily for 30 days. methocarbam 2021- No 250mg Q.[id number] Take 0.5 [facility] oL 04-[id number] (ROBAXIN) 00:00: 04:59 3D (250 mg Hosp naye 500 MG 00 :00 total) by l tablet mouth 3 (three) times a day for 7 days. nitazoxanid 2021-0 2021- No 500mg Q.5D Take 1 Me thodi e (ALINIA) 04-[address] 500 MG 00:00: 04:59 (500 mg Hospita tablet 00 :00 total) by l mouth 2 (two) times a day for 7 days. methocarbam 2021-2021- No 250mg Q.[id number] Take 0.5 [facility] oL 04-[id number] (ROBAXIN) 00:00: 04:59 3D (250 mg Hosp [facility]aye 500 MG 00 :00 total) by l tablet mouth 3 (three) times a day for 7 days. nitazoxanid 2021-0 2021- No 500mg Q.5D Take 1 Me thodi e (ALINIA) 04-[address] 500 MG 00:00: 04:59 (500 mg Hospita tablet 00 :00 total) by l mouth 2 (two) times a day for 7 days. oxyCODONE 2021-2021- [place] [id number] 5mg Q4H Take 1 Meth aiden (ROXICODONE -25 -01 tablet (5 st ) 5 MG 00:00: 04:59 mg total) Hospi ta immediate 00 :00 by mouth l release every 4 tablet (four) hours as needed for severe pain for up to 20 doses .acute pain. Max Daily Amount: 30 mg oxyCODONE 2021-0 2021- No [id number] 5mg Q4H Take 1 Meth aiden (ROXICODONE 6-25 -01 tablet (5 st ) 5 MG 00:00: 04:59 mg total) Hospi ta immediate 00 :00 by mouth l release every 4 tablet (four) hours as needed for severe pain for up to 20 doses .acute pain. Max Daily Amount: 30 mg tizanidine 2022-0 Yes 4 mg = 1 Mem oria 4 mg oral 5-16 tab, PO, l tablet 18:09: Bedtime, Denis 00 PRN NEEDED FOR MUSCLE SPASM, # 15 tab, 0 Refill(s), 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 tizanidine 2022-0 Yes 4 mg = 1 Mem oria 4 mg oral 5-16 tab, PO, l tablet 18:09: Bedtime, Denis 00 PRN NEEDED FOR MUSCLE SPASM, # 15 tab, 0 Refill(s), Pharmacy: [facility] ST[facility] #[id number], 165.1, cm, 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, Height, 107.301, kg, 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, 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 tizanidine 2022-0 Yes 4 mg = 1 Mem oria 4 mg oral 5-16 tab, PO, l tablet 18:09: Bedtime, [place] 00 PRN NEEDED FOR MUSCLE SPASM, # 15 tab, 0 Refill(s), Pharmacy: [facility] STORE #[id number], 165.1, cm, 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, Height, 107.301, kg, 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, 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 tizanidine 2-0 Yes 4 mg = 1 Mem oria 4 mg oral 5-16 tab, PO, l tablet 18:09: Bedtime, [place] 00 PRN NEEDED FOR MUSCLE SPASM, # 15 tab, 0 Refill(s), Pharmacy: [facility] STORE #[id number], 165.1, cm, 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, Height, 107.301, kg, 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, Weight tizanidine 2-0 Yes 4 mg = 1 Mem oria 4 mg oral 5-16 tab, PO, l tablet 18:09: Bedtime, [place] 00 PRN NEEDED FOR MUSCLE SPASM, # 15 tab, 0 Refill(s), Pharmacy: [facility] STORE #[id number], 165.1, cm, 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, Height, 107.301, kg, 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 nitrofurant 2021- No 100mg Q.5D Take 1 Me thodi oin, 3-08 24-[address] macrocrysta 00:00: 04:59 (100 mg [...] 12 hours or as directed by MD. lidocaine 2021- No 1{patch Q24H Place 1 M ethodi (LIDODERM) 12-28 } patch on st 5 % 00:00: 04:59 the skin Hospita 00 :00 in the l morning for 30 days. Remove & Discard patch within 12 hours or [place] [id number] 50mg Q.[id number] Take 1 [facility] (ULTRAM) 50 12-28- [id number] tablet (50 st mg tablet 00:00: 04:59 3D mg total) Ho spita 00 :00 by mouth l as needed in the morning and 1 tablet (50 mg total) as needed at noon and 1 tablet (50 mg total) as needed in the evening for moderate pain. Do all this for up to 10 days.acute pain. traMADoL 66193 50mg Q.70160184 Take 1 [facility] (ULTRAM) 50 12-28-20 [id number] tablet (50 st mg tablet 00:00: 04:59 [...] mg 00 times a l tablet day. metoprolol 2021-0 Yes 25mg Q.5D Take 25 mg M ethodi tartrate 2-[address] (LOPRESSOR) 00:00: (two) Hospi ta 25 mg 00 times a l tablet day. 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, Height, 107.301, kg, 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, Weight Ondansetron 2022-0 Yes 4 mg = 1 Me moria 4 MG Oral 1-07 tab, PO, l Tablet 22:01: BID, X 5 [place] [Zofran] day, # 10 tab, 0 Refill(s), Pharmacy: [facility] STORE #[id number], 165.1, cm, 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, Height, 107.301, kg, 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, 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 Ondansetron 2022-0 Yes 4 mg = 1 Me moria 4 MG Oral 1-07 tab, PO, l Tablet 22:01: BID, X 5 Denis [Zofran] day, # 10 tab, 0 Refill(s), Pharmacy: [facility] STORE #[id number], 165.1, cm, 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, Height, 107.301, kg, 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, 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 Ondansetron 2022-0 Yes 4 mg = 1 Me moria 4 MG Oral 1-07 tab, PO, l Tablet 22:01: BID, X 5 Denis [Zofran] day, # 10 tab, 0 Refill(s), Pharmacy: [facility] STORE #[id number], 165.1, cm, 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, Height, 107.301, kg, 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, 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 Ondansetron 2022-0 Yes 4 mg = 1 Me moria 4 MG Oral 1-07 tab, PO, l Tablet 22:01: BID, X 5 [place] [Zofran] 00 day, # 10 tab, 0 Refill(s), Pharmacy: [facility] STORE #[id number], 165.1, cm, 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, Height, 107.301, kg, 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, 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 Ondansetron 2022-0 Yes 4 mg = 1 Me moria 4 MG Oral 1-07 tab, PO, l Tablet 22:01: BID, X 5 Denis [Zofran] 00 day, # 10 tab, 0 Refill(s), Pharmacy: [facility] STORE #[id number], 165.1, cm, 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, Height, 107.301, kg, 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, 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 Ondansetron 2022-0 Yes 4 mg = 1 Me moria 4 MG Oral 1-07 tab, PO, l Tablet 22:01: BID, X 5 Denis [Zofran] 00 day, # 10 tab, 0 Refill(s), Pharmacy: [facility] #[id number], 165.1, cm, 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, Height, 107.301, kg, 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, Weight atorvastati 2020-10 Yes 10 mg = 1 M emoria n 10 mg 2-27 tab, PO, l oral tablet 21:45: Bedtime, # Denis 00 90 tab, 0 Refill(s), Pharmacy: [facility] #[id number], 165.1, cm, 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, Height, 107.301, kg, 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, Weight atorvastati 2020- Yes 10 mg = 1 M emoria n 10 mg 2-27 tab, PO, l oral tablet 21:45: Bedtime, # [place] 00 90 tab, 0 Refill(s), Pharmacy: [facility] #[id number], 165.1, cm, 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, Height, 107.301, kg, 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, Weight atorvastati 2020-10 Yes 10 mg = 1 M emoria n 10 mg 2-27 tab, PO, l oral tablet 21:45: Bedtime, # [place] 00 90 tab, 0 Refill(s), Pharmacy: [facility] #[id number], 165.1, cm, 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, Height, 107.301, kg, 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, Weight atorvastati 2020-10 Yes 10 mg = 1 M emoria n 10 mg 2-27 tab, PO, l oral tablet 21:45: Bedtime, # [place] 00 90 tab, 0 Refill(s), Pharmacy: [facility] #[id number], 165.1, cm, 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, Height, 107.301, kg, 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, Weight atorvastati 2020-10 Yes 10 mg = 1 M emoria n 10 mg 2-27 tab, PO, l oral tablet 21:45: Bedtime, # [place] 00 90 tab, 0 Refill(s), [facility][id number], 165.1, cm, 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, Height, 107.301, kg, 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, Weight atorvastati 2020-10 Yes 10 mg = 1 M emoria n 10 mg 2-27 tab, PO, l oral tablet 21:45: Bedtime, # [place] 00 90 tab, 0 Refill(s), Pharmacy: [facility] #[id number], 165.1, cm, 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, Height, 107.301, kg, 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, Weight atorvasta2020-10 Yes 10 mg = 1 M emoria n 10 mg 2-27 tab, PO, l oral tablet 21:45: Bedtime, # [place] 00 90 tab, 0 Refill(s), Pharmacy: [facility] #[id number], 165.1, cm, 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, Height, 107.301, kg, 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, Weight atorvastati 2020-10 Yes 10 mg = 1 M emoria n 10 mg 2-27 tab, PO, l oral tablet 21:45: Bedtime, # [place] 00 90 tab, 0 Refill(s), Pharmacy: [facility] #[id number], 165.1, cm, 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, Height, 107.301, kg, 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, 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 tizanidine 2020-10 Yes 4 mg = 1 Mem oria 4 mg oral 2-27 tab, PO, l tablet 21:40: Bedtime, [place] 00 PRN for muscle spasm, # 30 tab, 0 Refill(s), [id number], 165.1, cm, 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, Height, 107.301, kg, 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, 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 Acetaminoph 2020-10 Yes 1 tab, PO, Memoria en 325 MG / 2-27 Q12H, PRN l tramadol 21:40: for pain, Karoline connie hydrochlori 00 X 15 day, de 37.5 MG # 30 tab, Oral Tablet 0 [Ultracet] Refill(s), [id number], 165.1, cm, 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, 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, 107.301, kg, 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, 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 tizanidine 2020-10 Yes 4 mg = 1 Mem oria 4 mg oral 2-27 tab, PO, l tablet 21:40: Bedtime, [place] 00 PRN for muscle spasm, # 30 tab, 0 Refill(s), [id number], 165.1, cm, 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, 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, 107.301, kg, 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, 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 Acetaminoph 2020-10 Yes 1 tab, PO, Memoria en 325 MG / 2-27 Q12H, PRN l tramadol 21:40: for pain, Herm connie hydrochlori 00 X 15 day, de 37.5 MG # 30 tab, Oral Tablet 0 [Ultracet] Refill(s), Pharmacy: [email or web address] #[id number], 165.1, cm, 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, 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, 107.301, kg, 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, 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 tizanidine 2020-10 Yes 4 mg = 1 Mem oria 4 mg oral 2-27 tab, PO, l tablet 21:40: Bedtime, [place] 00 PRN for muscle spasm, # 30 tab, 0 Refill(s), Pharmacy: [facility] #[id number], 165.1, cm, 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, 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, 107.301, kg, 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, 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 Acetaminoph 2020-10 Yes 1 tab, PO, Memoria en 325 MG / 2-27 Q12H, PRN l tramadol 21:40: for pain, Herm connie hydrochlori 00 X 15 day, de 37.5 MG # 30 tab, Oral Tablet 0 [Ultracet] Refill(s), Pharmacy: [facility] #[id number], 165.1, cm, 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, 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, 107.301, kg, 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, 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 tizanidine 2020-10 Yes 4 mg = 1 Mem oria 4 mg oral 2-27 tab, PO, l tablet 21:40: Bedtime, [place] 00 PRN for muscle spasm, # 30 tab, 0 Refill(s), Pharmacy: [email or web address] #[id number], 165.1, cm, 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, 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, 107.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, Weight Acetaminoph 2020-10 Yes 1 tab, PO, Memoria en 325 MG / 2-27 Q12H, PRN l tramadol 21:40: for pain, Herm connie hydrochlori 00 X 15 day, de 37.5 MG # 30 tab, Oral Tablet 0 [Ultracet] Refill(s), Pharmacy: [facility] STORE #[id number], 165.1, cm, 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, Height, 107.301, kg, 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, Weight tizanidine 2020-10 Yes 4 mg = 1 Mem oria 4 mg oral 2-27 tab, PO, l tablet 21:40: Bedtime, [place] 00 PRN for muscle spasm, # 30 tab, 0 Refill(s), [facility][id number], 165.1, cm, 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, Height, 107.301, kg, 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, Weight Acetaminoph 2020-10 Yes 1 tab, PO, Memoria en 325 MG / 2-27 Q12H, PRN l tramadol 21:40: for pain, Herm connie hydrochlori 00 X 15 day, de 37.5 MG # 30 tab, Oral Tablet 0 [Ultracet] Refill(s), [id number], 165.1, cm, 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, Height, 107.301, kg, 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, Weight tizanidine 2020-10 Yes 4 mg = 1 Mem oria 4 mg oral 2-27 tab, PO, l tablet 21:40: Bedtime, [place] 00 PRN for muscle spasm, # 30 tab, 0 Refill(s), [facility][id number], 165.1, cm, 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, Height, 107.301, kg, 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, Weight Acetaminoph 2020-10 Yes 1 tab, PO, Memoria en 325 MG / 2-27 Q12H, PRN l tramadol 21:40: for pain, Herm connie hydrochlori 00 X 15 day, de 37.5 MG # 30 tab, Oral Tablet 0 [Ultracet] Refill(s), [facility][id number], 165.1, cm, 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, Height, 107.301, kg, 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, Weight sevelamer 2020-10 Yes 1,600 mg = [...] 00 22 gm, 0 Refill(s), Pharmacy: [facility] #[id number], 165.1, cm, 09/09/21 14:08: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, Height, 136.42, kg, 09/09/21 14:08: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, Weight Mupirocin 2020-10 Yes 1 appl, Memor ia 0.02 MG/MG 1-22 TOP, TID, l Topical 23:21: X 5 day, # Herm connie Ointment 00 22 gm, 0 Refill(s), [id number], 165.1, cm, 09/09/21 14:08: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, Height, 136.42, kg, 09/09/21 14:08: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, Weight Mupirocin 2020-10 Yes 1 appl, Memor ia 0.02 MG/MG 1-22 TOP, TID, l Topical 23:21: X 5 day, # Herm connie Ointment 00 22 gm, 0 Refill(s), [facility][id number], 165.1, cm, 09/09/21 14:08: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, Weight Mupirocin 2020-10 Yes 1 appl, Memor ia 0.02 MG/MG 1-22 TOP, TID, l Topical 23:21: X 5 day, # Herm connie Ointment 00 22 gm, 0 Refill(s), Pharmacy: [facility] ST[facility] #[id number], 165.1, cm, 09/09/21 14:08: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, Height, 136.42, kg, 09/09/21 14:08: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, Weight Mupirocin 2020-10 Yes 1 appl, Memor ia 0.02 MG/MG 1-22 TOP, TID, l Topical 23:21: X 5 day, # Herm connie Ointment 00 22 gm, 0 Refill(s), Pharmacy: [facility] STORE #[id number], 165.1, cm, 09/09/21 14:08: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, Height, 136.42, kg, 09/09/21 14:08: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, Weight bumetanide 2020-10 Yes 2 mg = 1 Mem oria 2 mg oral 1-19 tab, PO, l tablet 21:11: Daily, # [place] 00 30 tab, 0 Refill(s) bumetanide 2020-10 Yes 2 mg = 1 Mem oria 2 mg oral 1-19 tab, PO, l tablet 21:11: Daily, # [place] 00 30 tab, 0 Refill(s) bumetanide 2020-10 Yes 2 mg = 1 Mem oria 2 mg oral 1-19 tab, PO, l tablet 21:11: Daily, # [place] 00 30 tab, 0 Refill(s) bumetanide 2020-10 Yes 2 mg = 1 Mem oria 2 mg oral 1-19 tab, PO, l tablet 21:11: Daily, # [place] 00 30 tab, 0 Refill(s) bumetanide 2020-10 Yes 2 mg = 1 Mem oria 2 mg oral 1-19 tab, PO, l tablet 21:11: Daily, # [place] 00 30 tab, 0 Refill(s) bumetanide 2020-10 Yes 2 mg = 1 Mem oria 2 mg oral 1-19 tab, PO, l tablet 21:11: Daily, # [place] 30 tab, 0 Refill(s) bumetanide 2020-10 Yes 2 mg = 1 Mem oria 2 mg oral 1-19 tab, PO, l tablet 21:11: Daily, # [place] 30 tab, 0 Refill(s) bumetanide 2020-10 Yes 2 mg = 1 Mem oria 2 mg oral 1-19 tab, PO, l tablet 21:11: Daily, # [place] 00 30 tab, 0 Refill(s) allopurinol 2020-10 [...] connie 00 Refill(s) midodrine 2020-10 Yes 10mg Q.[id number] Take 10 mg [facility] (PROAMATINE 1-[id number] [facility] [address] [facility] ) 10 MG 00:00: [facility] tablet 00 times a l day. midodrine 2020-10 Yes 10mg Q.[id number] Take 10 mg [facility] (PROAMATINE 1-13 [id number] [facility] ) 10 MG 00:00: [facility] tablet 00 times a l day. BUMETanide 2020-10 Yes 2mg QD Take 2 mg [facility] (BUMEX) 2 1-[address] MG tablet 00:00: every [facility]ospita 00 morning. l digOXIN 2020-10 Yes 125ug Q.[id number] Take 125 [facility] (LANOXIN) - [id number] mcg by st 125 mcg 00:00: [facility] (0.125 mg) 00 (three) l tablet times a week. On dialysis , , Sunday BUMETanide 2020-10 Yes 2mg QD Take 2 mg [facility] (BUMEX) 2 11-[address] MG tablet 00:00: every [facility]ospita 00 morning. l digOXIN 2020-10 Yes 125ug Q.19659886 Take 125 [facility] (LANOXIN) 11-[id number] 125 mcg 00:00: [facility] (0.125 mg) 00 (three) l tablet times a week. On dialysis , , Sunday carvediloL 2020-10- No [facility] (COREG) 11-02 st 3.125 MG 00:00: 00:00 [facility]ospita tablet 00 :00 l carvediloL 2020-10- No [facility] (COREG) 11-02 st 3.125 MG 00:00: 00:00 Hospita tablet 00 :00 l ipratropium 2020-10- No [id number] .5mg Q.25D Take 2.5 [facility] (ATROVENT) 0-05 02-28 mL (0.[address] 0.02 % 00:00: 00:00 total) by Hospi ta nebulizer 00 :00 nebulizati l solution on 4 (four) times a day. ipratropium 2020-10- No [id number] .5mg Q.25D Take 2.5 [facility] (ATROVENT) 0-05 [...] twice a l tablet 13:55: day, 0 [place] 00 Refill(s) QUEtiapine 2021-0 Yes 1 tablet, Me moria 50 mg oral 3-30 once a l tablet 13:55: day, 0 [place] 00 Refill(s) torsemide 2021-0 Yes 1 tablet, [...] once a l tablet 13:55: day, 0 [place] 00 Refill(s) torsemide 2021-0 Yes 1 tablet, Mem oria 20 mg oral 3-30 twice a l tablet 13:55: day, 0 [place] 00 Refill(s) QUEtiapine 2021-0 Yes 1 tablet, Me moria 50 mg oral 3-30 once a l tablet 13:55: day, 0 [place] 00 Refill(s) torsemide 2021-0 Yes 1 tablet, Mem oria 20 mg oral 3-30 twice a l tablet 13:55: day, 0 [place] 00 Refill(s) QUEtiapine 2021-0 Yes 1 tablet, Me moria 50 mg oral 3-30 once a l tablet 13:55: day, 0 [place] 00 Refill(s) torsemide 2021-0 Yes 1 tablet, Mem oria 20 mg oral 3-30 twice a l tablet 13:55: day, 0 [place] 00 Refill(s) QUEtiapine 2021-0 Yes 1 tablet, Me moria 50 mg oral 3-30 once a l tablet 13:55: day, 0 [place] 00 Refill(s) torsemide 2020-0 Yes 1 tablet, Mem oria 20 mg oral 3-30 twice a l tablet 13:55: day, 0 [place] 00 Refill(s) potassium 2020-0 Yes 1 tablet, Mem oria chloride 20 3-30 once a l mEq oral 13:54: day, 0 [place] tablet, 00 Refill(s) extended release (KCL) potassium 2020-0 Yes 1 tablet, Mem oria chloride 20 3-30 once a l mEq oral 13:54: day, 0 [place] tablet, 00 Refill(s) extended release (KCL) potassium 2020-0 Yes 1 tablet, Mem oria chloride 20 3-30 once a l mEq oral 13:54: day, 0 [place] tablet, 00 Refill(s) extended release (KCL) potassium 2020-0 Yes 1 tablet, Mem oria chloride 20 3-30 once a l mEq oral 13:54: day, 0 [place] tablet, 00 Refill(s) extended release (KCL) potassium 2020-0 Yes 1 tablet, Mem oria chloride 20 3-30 once a l mEq oral 13:54: day, 0 [place] tablet, 00 Refill(s) extended release (KCL) potassium [...] a l mEq oral 13:54: day, 0 [place] tablet, 00 Refill(s) extended release (KCL) allopurinol [...] twice a l tablet 13:53: day, 0 [place] 00 Refill(s) allopurinol Yes 1/2 Memori a [...] twice a l Capsule 13:53: day, 0 [place] 00 Refill(s) metoprolol 0 Yes 1 tablet, Me moria tartrate 50 3-30 Twice a l mg oral 13:53: day, 0 [place] tablet 00 Refill(s) midodrine 5 0 Yes 1 tablet, M emoria mg oral 3-30 twice a l tablet 13:53: day, 0 [place] 00 Refill(s) allopurinol 0 Yes 1/2 Memori a 300 mg oral [...] once a l delayed 13:53: day, 0 [place] release 00 Refill(s) capsule apixaban 5 Yes [...] 13:53: day, 0 [place] 00 Refill(s) allopurinol 0 Yes 1/2 Memori a 300 mg oral [...] twice a l Tablet 13:53: day, 0 [place] [Eliquis] 00 Refill(s) gabapentin Yes 1 capsule, M emoria 300 MG Oral 3-30 twice a l Capsule 13:53: day, 0 [place] 00 Refill(s) metoprolol Yes 1 tablet, Me moria tartrate 50 3-30 Twice a l mg oral 13:53: day, 0 [place] tablet 00 Refill(s) midodrine 5 Yes 1 tablet, M emoria mg oral 3-30 twice a l tablet 13:53: day, 0 [place] 00 Refill(s) allopurinol Yes 1/2 Memori a [...] twice a l Capsule 13:53: day, 0 [place] 00 Refill(s) metoprolol 0 Yes 1 tablet, Me moria tartrate 50 3-30 Twice a l mg oral 13:53: day, 0 [place] tablet 00 Refill(s) midodrine 5 2020-0 Yes 1 tablet, M emoria mg oral 3-30 twice a l tablet 13:53: day, 0 [place] 00 Refill(s) allopurinol 2020-0 Yes 1/2 Memori [...] twice a l Tablet 13:53: day, 0 [place] [Eliquis] 00 Refill(s) gabapentin 2020-0 Yes 1 capsule, M emoria 300 MG Oral 3-30 twice a l Capsule 13:53: day, 0 [place] 00 Refill(s) metoprolol 2020-0 Yes 1 tablet, Me moria tartrate 50 3-30 Twice a l mg oral 13:53: day, 0 [place] tablet 00 Refill(s) midodrine 5 2020-0 Yes 1 tablet, M emoria mg oral 3-30 twice a l tablet 13:53: day, 0 [place] 00 Refill(s) allopurinol 2020-0 Yes 1/2 Memori a 300 mg oral 3-30 tablet, l tablet 13:53: once a [place] 00 day, 0 Refill(s) carvedilol 2020-0 Yes [...] twice a l Capsule 13:53: day, 0 [place] 00 Refill(s) metoprolol Yes 1 tablet, Me moria tartrate 50 3-30 Twice a l mg oral 13:53: day, 0 [place] tablet 00 Refill(s) midodrine 5 Yes 1 [...] twice a l Tablet 13:53: day, 0 [place] [Eliquis] 00 Refill(s) gabapentin 0 Yes 1 capsule, M emoria 300 MG Oral 3-30 twice a l Capsule 13:53: day, 0 [place] 00 Refill(s) metoprolol 0 Yes 1 tablet, Me moria tartrate 50 3-30 Twice a l mg oral 13:53: day, 0 [place] tablet 00 Refill(s) midodrine 5 2021-0 Yes 1 tablet, M emoria mg oral 3-30 twice a l tablet 13:53: day, 0 [place] 00 Refill(s) DULoxetine 2019-10 Yes 60 mg [...] 0 [place] [Aldactone] 00 Refill(s) DULoxetine 2019- Yes 60 mg = 1 Me moria [...] 0 [place] [Aldactone] 00 Refill(s) Digoxin 2019- Yes 0.125 mg, Memor [...] tab, [place] 00 0 Refill(s) Digoxin 2020- Yes 0.125 mg, Memor ia 0.125 MG 1-25 PO, Daily, l Oral Tablet 17:13: # 30 tab, [place] 00 0 Refill(s) Digoxin 2020- Yes 0.125 mg, Memor ia 0.125 MG 1-25 PO, Daily, l Oral Tablet 17:13: # 30 tab, [place] 00 0 Refill(s) Digoxin 2020- Yes 0.125 mg, Memor ia 0.125 MG 1-25 PO, Daily, l Oral Tablet 17:13: # 30 tab, [place] 00 0 Refill(s) Mupirocin 2019-10 Yes See Memoria 0.02 MG/MG 0-13 Instructio l Topical 15:44: ns, APPLY Karen nn Ointment 00 EXTERNALLY TO THE AFFECTED AREA TWICE DAILY, # 66 gm, 1 Refill(s), Pharmacy: [email or web address] #[id number], 170.18, cm, 12/16/19 14:42: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, Weight Nitrofurant 2020-0 Yes 100 mg = 1 Memoria oin 100 MG 8-09 cap, PO, l Oral 17:57: BID, X 10 [place] Capsule 00 day, # 20 [Macrobid] cap, 0 Refill(s), [id number], 170.18, cm, 12/16/19 14:42: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, Height, 164.318, kg, 12/16/19 14:42: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, Weight Nitrofurant 2020-0 Yes 100 mg = 1 Memoria oin 100 MG 8-09 cap, PO, l Oral 17:57: BID, X 10 [place] Capsule 00 day, # 20 [Macrobid] cap, 0 Refill(s), Pharmacy: [facility] #[id number], 170.18, cm, 12/16/19 14:42: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, Height, 164.318, kg, 12/16/19 14:42: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, Weight Nitrofurant 2020-0 Yes 100 mg = 1 Memoria oin 100 MG 8-09 cap, PO, l Oral 17:57: BID, X 10 [place] Capsule 00 day, # 20 [Macrobid] cap, 0 Refill(s), [id number], 170.18, cm, 12/16/19 14:42: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, Height, 164.318, kg, 12/16/19 14:42: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, Weight lisinopril 2020-0 Yes 2.5 mg = 1 M emoria 2.5 mg oral 6-04 tab, PO, l tablet 23:26: Daily, # [place] 00 30 tab, 2 Refill(s), called to pharmacy lisinopril 2020-0 Yes 2.5 mg = 1 M emoria 2.5 mg oral 6-04 tab, PO, l tablet 23:26: Daily, # [place] 00 30 tab, 2 Refill(s), called to pharmacy lisinopril 2020-0 Yes 2.5 mg = 1 M emoria 2.5 mg oral 6-04 tab, PO, l tablet 23:26: Daily, # [place] 00 30 tab, 2 Refill(s), called to [...] tab, PO, l tablet 23:26: Daily, # [place] 00 30 tab, 2 Refill(s), called to [...] Daily, l oral 12:18: # 90 cap, [place] capsule 00 1 Refill(s), [facility][id number] calcitriol 2020-0 Yes = 1 cap, Mem oria 0.25 mcg 5-20 PO, Daily, l oral 12:18: # 90 cap, [place] capsule 00 1 Refill(s), [facility] #[id number] calcitriol 2020-0 Yes = 1 cap, Mem oria 0.25 mcg 5-20 PO, Daily, l oral 12:18: # 90 cap, [place] capsule 00 1 Refill(s), [id number] calcitriol 2020-0 Yes = 1 cap, Mem oria 0.25 mcg 5-20 PO, Daily, l oral 12:18: # 90 cap, [place] capsule 00 1 Refill(s), Pharmacy: [facility] STORE #[id number] calcitriol 2020-0 Yes = 1 cap, Mem oria 0.25 mcg 5-20 PO, Daily, l oral 12:18: # 90 cap, [place] capsule 00 1 Refill(s), Pharmacy: [facility] STORE #[id number] calcitriol 2020-0 Yes = 1 cap, Mem oria 0.25 mcg 5-20 PO, Daily, l oral 12:18: # 90 cap, [place] capsule 00 1 Refill(s), Pharmacy: [facility] STORE #[id number] calcitriol 2020-0 Yes = 1 cap, Mem oria 0.25 mcg 5-20 PO, Daily, l oral 12:18: # 90 cap, [place] capsule 00 1 Refill(s), Pharmacy: [facility] STORE #[id number] calcitriol 2020-0 Yes = 1 cap, Mem o[place] 0.25 mcg 5-20 PO, Daily, l oral 12:18: # 90 cap, [place] capsule 00 1 Refill(s), [facility] #[id number] calcitriol 2020-0 Yes = 1 cap, Mem o[place] 0.25 mcg 4-16 PO, Daily, l oral 16:37: # 90 [place] capsule 47 unknown unit, [facility] #[id number] calcitriol 2020-0 Yes = 1 cap, Mem o[place] 0.25 mcg 4-16 PO, Daily, l oral 16:37: # 90 [place] capsule 47 unknown unit, [facility] #[id number] calcitriol 2020-0 Yes = 1 cap, Mem o[place] 0.25 mcg 4-16 PO, Daily, l oral 16:37: # 90 [place] capsule 47 unknown unit, [facility] #[id number] calcitriol 2020-0 Yes = 1 cap, Mem o[place] 0.25 mcg 4-16 PO, Daily, l oral 16:37: # 90 [place] capsule 47 unknown unit, [facility] #[id number] calcitriol 2020-0 Yes = 1 cap, Mem o[place] 0.25 mcg 4-16 PO, Daily, l oral 16:37: # 90 [place] capsule 47 unknown unit, Pharmacy: [facility] #[id number] calcitriol 2020-0 Yes = 1 cap, Mem o[place] 0.25 mcg 4-16 PO, Daily, l oral 16:37: # 90 [place] capsule 47 unknown unit, Pharmacy: [facility] #[id number] calcitriol 2020-0 Yes = 1 cap, Mem o[place] 0.25 mcg 4-16 PO, Daily, l oral 16:37: # 90 [place] capsule 47 unknown unit, Pharmacy: [facility] #[id number] calcitriol 2020-0 Yes = 1 cap, Mem oria 0.25 mcg 4-16 PO, Daily, l oral 16:37: # 90 [place] capsule 47 unknown unit, Pharmacy: [facility] #[id number] Furosemide 2020-0 Yes = 1 tab, Mem oria 40 MG Oral 4-13 PO, Every l Tablet 20:06: Other Day, Karen nn 19 # 45 tab, Pharmacy: [facility] #[id number] Furosemide 2020-0 Yes = 1 tab, Mem oria 40 MG Oral 4-13 PO, Every l Tablet 20:06: Other Day, Karen nn 19 # 45 tab, Pharmacy: [facility] #[id number] Furosemide 2020-0 Yes = 1 tab, Mem oria 40 MG Oral 4-13 PO, Every l Tablet 20:06: Other Day, Karen nn 19 # 45 tab, Pharmacy: [facility] [facility] #[id number] Furosemide 2020-0 Yes = 1 tab, Mem oria 40 MG Oral 4-13 PO, Every l Tablet 20:06: Other Day, Karen nn 19 # 45 tab, Pharmacy: [facility] [employer] [facility] #[id number] Furosemide 2020-0 Yes = 1 tab, Mem oria 40 MG Oral 4-13 PO, Every l Tablet 20:06: Other Day, Karen nn 19 # 45 tab, Pharmacy: [facility] #[id number] Furosemide 2020-0 Yes = 1 tab, Mem oria 40 MG Oral 4-13 PO, Every l Tablet 20:06: Other Day, Karen nn 19 # 45 tab, Pharmacy: [facility] [facility] #[id number] Furosemide 2020-0 Yes = 1 tab, Mem oria 40 MG Oral 4-13 PO, Every l Tablet 20:06: Other Day, Karen nn 19 # 45 tab, Pharmacy: [email or web address] #[id number] Furosemide 2020-0 Yes = 1 tab, Mem oria 40 MG Oral 4-13 PO, Every l Tablet 20:06: Other Day, Karen nn 19 # 45 tab, Pharmacy: [email or web address] #[id number] prednisolon 2020-0 Yes 1 drop in M [...] each eye, l 10 MG/ML 20:53: once [place] [facility] 00 daily, 0 Suspension Refill(s) bromfenac [...] 4-10 right eye, l Ophthalmic 20:53: once [place] Solution 00 daily, 0 [Prolensa] Refill(s) prednisolon 2020-0 Yes 1 drop in M emoria e acetate 4-10 each eye, l 10 MG/ML 20:53: once [place] [facility] 00 daily, 0 Suspension Refill(s) bromfenac 2020-0 Yes 1 drop in Mem oria 0.7 MG/ML 4-10 right eye, l Ophthalmic 20:53: once [place] Solution 00 daily, 0 [Prolensa] Refill(s) prednisolon 2020-0 Yes 1 drop in M emoria e acetate 4-10 each eye, l 10 MG/ML 20:53: once [place] [facility] 00 daily, 0 Suspension Refill(s) bromfenac 2020-0 Yes 1 drop in Mem oria 0.7 MG/ML 4-10 right eye, l Ophthalmic 20:53: once [place] Solution 00 daily, 0 [Prolensa] Refill(s) prednisolon 2020-0 Yes 1 drop in M emoria e acetate 4-10 each eye, l 10 MG/ML 20:53: once [place] [facility] 00 daily, 0 Suspension Refill(s) bromfenac 2020-0 Yes 1 drop in Mem oria 0.7 MG/ML 4-10 right eye, l Ophthalmic 20:53: once [place] Solution 00 daily, 0 [Prolensa] Refill(s) prednisolon 2020-0 Yes 1 drop in M emoria e acetate 4-10 each eye, l 10 MG/ML 20:53: once [place] [facility] 00 daily, 0 Suspension Refill(s) bromfenac 2020-0 Yes 1 drop in Mem oria 0.7 MG/ML 4-10 right eye, l Ophthalmic 20:53: once [place] Solution 00 daily, 0 [Prolensa] Refill(s) prednisolon 2020-0 Yes 1 drop in M emoria e acetate 4-10 each eye, l 10 MG/ML 20:53: once [place] [facility] 00 daily, 0 Suspension Refill(s) bromfenac 2020-0 Yes 1 drop in Mem oria 0.7 MG/ML 4-10 right eye, l Ophthalmic 20:53: once [place] Solution 00 daily, 0 [Prolensa] Refill(s) Furosemide 2020-0 Yes = 1 tab, Mem oria 40 MG Oral 1-23 PO, Every l Tablet 15:13: Other Day, Karen robb 34 # 45 tab, Pharmacy: [email or web address] #[id number] Furosemide 2020-0 Yes = 1 tab, Mem oria 40 MG Oral 1-23 PO, Every l Tablet 15:13: Other Day, Karen robb 34 # 45 tab, [id number] Furosemide 2020-0 Yes = 1 tab, Mem oria 40 MG Oral 1-23 PO, Every l Tablet 15:13: Other Day, Karen robb 34 # 45 tab, [facility][id number] Furosemide 2020-0 Yes = 1 tab, Mem oria 40 MG Oral 1-23 PO, Every l Tablet 15:13: Other Day, Karen robb 34 # 45 tab, Pharmacy: [email or web address] #[id number] Furosemide 2020-0 Yes = 1 tab, Mem oria 40 MG Oral 1-23 PO, Every l Tablet 15:13: Other Day, Karen nn 34 # 45 tab, Pharmacy: [facility] #[id number] Furosemide 2020-0 Yes = 1 tab, Mem oria 40 MG Oral 1-23 PO, Every l Tablet 15:13: Other Day, Karen nn 34 # 45 tab, Pharmacy: [facility] #[id number] Furosemide 2020-0 Yes = 1 tab, Mem oria 40 MG Oral 1-23 PO, Every l Tablet 15:13: Other Day, Karen nn 34 # 45 tab, Pharmacy: [facility] #[id number] Furosemide 2020-0 Yes = 1 tab, Mem oria 40 MG Oral 1-23 PO, Every l Tablet 15:13: Other Day, Karen nn 34 # 45 tab, Pharmacy: [facility] [address] [place] [address] 2018-10 Yes See Memoria 0.02 MG/MG 2-27 Instructio l Topical 19:11: ns, # 66 Vicente n Ointment 15 gm, APPLY EXTERNALLY TO THE AFFECTED AREA TWICE DAILY, Pharmacy: [facility] [address] [place] [address] 2018-10 Yes See Memoria 0.02 MG/MG 2-27 Instructio l Topical 19:11: ns, # 66 [place] n Ointment 15 gm, APPLY EXTERNALLY TO THE AFFECTED AREA TWICE DAILY, Pharmacy: [facility] [address] [place] [address] 2018-10 Yes See Memoria 0.02 MG/MG 2-27 Instructio l Topical 19:11: ns, # 66 [place] n Ointment 15 gm, APPLY EXTERNALLY TO THE AFFECTED AREA TWICE DAILY, Pharmacy: [facility] [address] [place], [place] [address]rocks 2018-10 Yes See Memoria 0.02 MG/MG 2-27 Instructio l Topical 19:11: ns, # 66 [place]ente n Ointment 15 gm, APPLY EXTERNALLY TO THE AFFECTED AREA TWICE DAILY, Pharmacy: [facility] [address] [place] [address] 2018-10 Yes See Memoria 0.02 MG/MG 2-27 Instructio l Topical 19:11: ns, # 66 [place] n Ointment 15 gm, APPLY EXTERNALLY TO THE AFFECTED AREA TWICE DAILY, Pharmacy: [facility] [address] [place] [address] 2018-10 Yes See Memoria 0.02 MG/MG 2-27 Instructio l Topical 19:11: ns, # 66 [place] n Ointment 15 gm, APPLY EXTERNALLY TO THE AFFECTED AREA TWICE DAILY, Pharmacy: [facility] #[id number] Mupirocin 2018-10 Yes See Memoria 0.02 MG/MG 2-27 Instructio l Topical 19:11: ns, # 66 [place] n Ointment 15 gm, APPLY EXTERNALLY TO THE AFFECTED AREA TWICE DAILY, Pharmacy: [facility][id number] [facility] See Memoria 0.02 MG/MG 2-27 Instructio l Topical 19:11: ns, # 66 [place]ente n Ointment 15 gm, APPLY EXTERNALLY TO THE AFFECTED AREA TWICE DAILY, Pharmacy: [facility] #[id number] Nitrofurant 2018-10 Yes 100 mg = 1 Memoria oin 100 MG 2-13 cap, PO, l Oral 01:44: BID, X 5 Denis Capsule 00 day, # 10 [[place] cap, 0 n] Refill(s), Pharmacy: [facility] #[id number] [facility] 2018-10 Yes 100 mg = 1 Memoria oin 100 MG 2-13 cap, PO, l Oral 01:44: BID, X 5 Denis Capsule 00 day, # 10 [[place] cap, 0 n] Refill(s), Pharmacy: [facility] #[id number] Nitrofurant 2018-10 Yes 100 mg = 1 Memoria oin 100 MG 2-13 cap, PO, l Oral 01:44: BID, X 5 Denis Capsule 00 day, # 10 [[place] cap, 0 n] Refill(s), Pharmacy: [facility] #[id number] Nitrofurant 2018-10 Yes 100 mg = 1 Memoria oin 100 MG 2-13 cap, PO, l Oral 01:44: BID, X 5 [place] Capsule 00 day, # 10 [[place] cap, 0 n] Refill(s), Pharmacy: [facility] #[id number] Nitrofurant 2018-10 Yes 100 mg = 1 Memoria oin 100 MG 2-13 cap, PO, l Oral 01:44: BID, X 5 [place] Capsule 00 day, # 10 [[place] cap, 0 n] Refill(s), Pharmacy: [facility] #[id number] Nitrofurant 2018-10 Yes 100 mg = 1 Memoria oin 100 MG 2-13 cap, PO, l Oral 01:44: BID, X 5 [place] Capsule 00 day, # 10 [[place] cap, 0 n] Refill(s), Pharmacy: [facility] #[id number] Nitrofurant 2018-10 Yes 100 mg = 1 Memoria oin 100 MG 2-13 cap, PO, l Oral 01:44: BID, X 5 [place] Capsule 00 day, # 10 [[place] cap, 0 n] Refill(s), Pharmacy: [facility] #[id number] Nitrofurant 2018-10 Yes 100 mg = 1 Memoria oin 100 MG 2-13 cap, PO, l Oral 01:44: BID, X 5 [place] Capsule 00 day, # 10 [[place] cap, 0 n] Refill(s), Pharmacy: [facility] #[id number] apixaban 2018-10 Yes 5 mg, PO, Me [...] PO, Daily, l oral 21:10: # 90 [place] capsule 30 unknown unit, Pharmacy: [facility] #[id number] calcitriol 2018-10 Yes = 1 cap, Mem oria 0.25 mcg 0-11 PO, Daily, l oral 21:10: # 90 [place] capsule 30 unknown unit, Pharmacy: [email or web address] #[id number] calcitriol 2018-10 Yes = 1 cap, Mem oria 0.25 mcg 0-11 PO, Daily, l oral 21:10: # 90 [place] capsule 30 unknown unit, Pharmacy: [email or web address] #[id number] calcitriol 2018-10 Yes = 1 cap, Mem oria 0.25 mcg 0-11 PO, Daily, l oral 21:10: # 90 [place] capsule 30 unknown unit, Pharmacy: [email or web address] #[id number] calcitriol 2018-10 Yes = 1 cap, Mem oria 0.25 mcg 0-11 PO, Daily, l oral 21:10: # 90 [place] capsule 30 unknown unit, Pharmacy: [email or web address] #[id number] calcitriol 2019- Yes = 1 cap, Mem oria 0.25 mcg 0-11 PO, Daily, l oral 21:10: # 90 [place] capsule 30 unknown unit, Pharmacy: [facility] #[id number] calcitriol 2019- Yes = 1 cap, Mem oria 0.25 mcg 0-11 PO, Daily, l oral 21:10: # 90 [place] capsule 30 unknown unit, Pharmacy: [facility] #[id number] calcitriol 2019- Yes = 1 cap, Mem oria 0.25 mcg 0-11 PO, Daily, l oral 21:10: # 90 [place] capsule 30 unknown unit, Pharmacy: [facility] #[id number] gabapentin 2019-0 Yes 300 mg = 1 [...] l Capsule 20:54: BID, # 180 Herm connei 00 cap, 3 Refill(s), called to pharmacy [...] tablet 02:39: # 90 tabVicente n Pharmacy: [facility] #[id number] allopurinol 2019-0 Yes = 1 tab, Me moria 300 mg oral 8-17 PO, Daily, l tablet 02:39: # 90 tab, [facility] Pharmacy: [facility] #[id number] allopurinol 2019-0 Yes = 1 tab, Me moria 300 mg oral 8-17 PO, Daily, l tablet 02:39: # 90 tab, [facility] Pharmacy: [facility] #[id number] allopurinol 2019-0 Yes = 1 tab, Me moria 300 mg oral 8-17 PO, Daily, l tablet 02:39: # 90 tab, [facility] Pharmacy: [facility] #[id number] allopurinol 2019-0 Yes = 1 tab, Me moria 300 mg oral 8-17 PO, Daily, l tablet 02:39: # 90 tab, Vicente n Pharmacy: [facility] #[id number] allopurinol 2019-0 Yes = 1 tab, Me moria 300 mg oral 8-17 PO, Daily, l tablet 02:39: # 90 tab, [place]ente n Pharmacy: [facility] #[id number] allopurinol 2019-0 Yes = 1 tab, Me moria 300 mg oral 8-17 PO, Daily, l tablet 02:39: # 90 tab, Vicente n Pharmacy: [facility] #[id number] allopurinol 2019-0 Yes = 1 tab, Me moria 300 mg oral 8-17 PO, Daily, l tablet 02:39: # 90 tab, Vicente n Pharmacy: [facility] #[id number] QUEtiapine 2019-0 Yes 50 mg = 1 [...] BEDTIME, # 90 tab, 1 Refill(s), Pharmacy: [facility] atorvastati Yes See Memori a n 40 mg 3-14 Instructio l oral tablet 15:07: ns, TAKE 1 Denis 35 TABLET BY MOUTH EVERY NIGHT AT BEDTIME, # 90 tab, 1 Refill(s), Pharmacy: [facility] atorvastati Yes See Memori a n 40 mg 3-14 Instructio l oral tablet 15:07: ns, TAKE 1 [place] 35 TABLET BY MOUTH EVERY NIGHT AT BEDTIME, # 90 tab, 1 Refill(s), Pharmacy: [facility] atorvastati Yes See Memori a n 40 mg 3-14 Instructio l oral tablet 15:07: ns, TAKE 1 Denis 35 TABLET BY MOUTH EVERY NIGHT AT BEDTIME, # 90 tab, 1 Refill(s), Pharmacy: [address] Yes See Memori a n 40 mg 3-14 Instructio l oral tablet 15:07: ns, TAKE 1 Denis 35 TABLET BY MOUTH EVERY NIGHT AT BEDTIME, # 90 tab, 1 Refill(s), Pharmacy: [address] Yes See Memori a n 40 mg 3-14 Instructio l oral tablet 15:07: ns, TAKE 1 [place] 35 TABLET BY MOUTH EVERY NIGHT AT BEDTIME, # 90 tab, 1 Refill(s), Pharmacy: [address] Yes See Memori a n 40 mg 3-14 Instructio l oral tablet 15:07: ns, TAKE 1 [place] 35 TABLET BY MOUTH EVERY NIGHT AT BEDTIME, # 90 tab, 1 Refill(s), Pharmacy: [address] Yes See Memori a n 40 mg 3-14 Instructio l oral tablet 15:07: ns, TAKE 1 [place] 35 TABLET BY MOUTH EVERY NIGHT AT BEDTIME, # 90 tab, 1 Refill(s), [facility] [place] [address] [facility] Memoria 5 mg oral 3-14 Instructio l tablet 15:07: ns, TAKE 1 Karen nn 33 TABLET BY MOUTH EVERY DAY, # 90 tab, 1 Refill(s), Pharmacy: [place] [address] amLODIPine Yes See Memoria 5 mg oral 3-14 Instructio l tablet 15:07: ns, TAKE 1 Karen nn 33 TABLET BY MOUTH EVERY DAY, # 90 tab, 1 Refill(s), Pharmacy: [place] [address] amLODIPine Yes See Memoria 5 mg oral 3-14 Instructio l tablet 15:07: ns, TAKE 1 Karen nn 33 TABLET BY MOUTH EVERY DAY, # 90 tab, 1 Refill(s), Pharmacy: [place] [address] amLODIPine Yes See Memoria 5 mg oral 3-14 Instructio l tablet 15:07: ns, TAKE 1 Karen nn 33 TABLET BY MOUTH EVERY DAY, # 90 tab, 1 Refill(s), Pharmacy: [facility] [place] [address] amLODIPine Yes See Memoria 5 mg oral 3-14 Instructio l tablet 15:07: ns, TAKE 1 Karen nn 33 TABLET BY MOUTH EVERY DAY, # 90 tab, 1 Refill(s), Pharmacy: [facility] [place] [address] amLODIPine Yes See Memoria 5 mg oral 3-14 Instructio l tablet 15:07: ns, TAKE 1 Karen nn 33 TABLET BY MOUTH EVERY DAY, # 90 tab, 1 Refill(s), Pharmacy: [facility] [place] [address] amLODIPine Yes See Memoria 5 mg oral 3-14 Instructio l tablet 15:07: ns, TAKE 1 Karen nn 33 TABLET BY MOUTH EVERY DAY, # 90 tab, 1 Refill(s), Pharmacy: [facility] [place] [address] amLODIPine Yes See Memoria 5 mg oral 3-14 Instructio l tablet 15:07: ns, TAKE 1 Karen nn 33 TABLET BY MOUTH EVERY DAY, # 90 tab, 1 Refill(s), Pharmacy: [facility] [place] [address] lisinopril Yes See Memoria 5 mg oral 8-21 Instructio l tablet 19:00: ns, TAKE 1 Karen nn 30 TABLET BY MOUTH DAILY, # 90 tab, 1 Refill(s), Pharmacy: [facility] [place] [address] lisinopril Yes See Memoria 5 mg oral 8-21 Instructio l tablet 19:00: ns, TAKE 1 Karen nn 30 TABLET BY MOUTH DAILY, # 90 tab, 1 Refill(s), Pharmacy: [facility] lisinopril 2017- Yes See Memoria 5 mg oral 8-21 Instructio l tablet 19:00: ns, TAKE 1 Karen nn 30 TABLET BY MOUTH DAILY, # 90 tab, 1 Refill(s), Pharmacy: [facility] [place] [address] lisinopril 2017- Yes See Memoria 5 mg oral 8-21 Instructio l tablet 19:00: ns, TAKE 1 Karen nn 30 TABLET BY MOUTH DAILY, # 90 tab, 1 Refill(s), Pharmacy: [place] [address] lisinopril Yes See Memoria 5 mg oral 8-21 Instructio l tablet 19:00: ns, TAKE 1 Karen nn 30 TABLET BY MOUTH DAILY, # 90 tab, 1 Refill(s), Pharmacy: [place] [address] lisinopril Yes See Memoria 5 mg oral 8-21 Instructio l tablet 19:00: ns, TAKE 1 Karen nn 30 TABLET BY MOUTH DAILY, # 90 tab, 1 Refill(s), Pharmacy: [place] [address] lisinopril Yes See Memoria 5 mg oral 8-21 Instructio l tablet 19:00: ns, TAKE 1 Karen nn 30 TABLET BY MOUTH DAILY, # 90 tab, 1 Refill(s), Pharmacy: [place] [address] lisinopril Yes See Memoria 5 mg oral 8-21 Instructio l tablet 19:00: ns, TAKE 1 Karen nn 30 TABLET BY MOUTH DAILY, # 90 tab, 1 Refill(s), Pharmacy: [place] [address] atorvastati Yes See Memori a n 40 mg 8-21 Instructio l oral tablet 18:50: ns, TAKE 1 [place] 45 TABLET BY MOUTH EVERY NIGHT AT BEDTIME, # 30 tab, 5 Refill(s), Pharmacy: [place] [address] atorvastati Yes See Memori a n 40 mg 8-21 Instructio l oral tablet 18:50: ns, TAKE 1 [place] 45 TABLET BY MOUTH EVERY NIGHT AT BEDTIME, # 30 tab, 5 Refill(s), Pharmacy: [facility] [place] [address] atorvastati Yes See Memori a n 40 mg 8-21 Instructio l oral tablet 18:50: ns, TAKE 1 [place] 45 TABLET BY MOUTH EVERY NIGHT AT BEDTIME, # 30 tab, 5 Refill(s), Pharmacy: [facility] [place] [address] atorvasta Yes See Memori a n 40 mg 8-21 Instructio l oral tablet 18:50: ns, TAKE 1 [place] 45 TABLET BY MOUTH EVERY NIGHT AT BEDTIME, # 30 tab, 5 Refill(s), Pharmacy: [facility] [place] [address] atorvastati Yes See Memori a n 40 mg 8-21 Instructio l oral tablet 18:50: ns, TAKE 1 [place] 45 TABLET BY MOUTH EVERY NIGHT AT BEDTIME, # 30 tab, 5 Refill(s), Pharmacy: [place] [address] atorvastati Yes See Memori a n 40 mg 8-21 Instructio l oral tablet 18:50: ns, TAKE 1 Denis 45 TABLET BY MOUTH EVERY NIGHT AT BEDTIME, # 30 tab, 5 Refill(s), Pharmacy: [place] [address] atorvastati Yes See Memori a n 40 mg 8-21 Instructio l oral tablet 18:50: ns, TAKE 1 [place] 45 TABLET BY MOUTH EVERY NIGHT AT BEDTIME, # 30 tab, 5 Refill(s), Pharmacy: [place] [address] atorvastati Yes See Memori a n 40 mg 8-21 Instructio l oral tablet 18:50: ns, TAKE 1 [place] 45 TABLET BY MOUTH EVERY NIGHT AT BEDTIME, # 30 tab, 5 Refill(s), Pharmacy: [place] [address] amLODIPine Yes See Memoria 5 mg oral 8-21 Instructio l tablet 18:50: ns, TAKE 1 Karen nn 41 TABLET BY MOUTH EVERY DAY, # 30 tab, 5 Refill(s), Pharmacy: [place] [address] amLODIPine Yes See Memoria 5 mg oral 8-21 Instructio l tablet 18:50: ns, TAKE 1 Karen nn 41 TABLET BY MOUTH EVERY DAY, # 30 tab, 5 Refill(s), Pharmacy: [place] [address] amLODIPine Yes See Memoria 5 mg oral 8-21 Instructio l tablet 18:50: ns, TAKE 1 Karen nn 41 TABLET BY MOUTH EVERY DAY, # 30 tab, 5 Refill(s), Pharmacy: [place] [address] amLODIPine Yes See Memoria 5 mg oral 8-21 Instructio l tablet 18:50: ns, TAKE 1 Karen nn 41 TABLET BY MOUTH EVERY DAY, # 30 tab, 5 Refill(s), Pharmacy: [place] [address] amLODIPine Yes See Memoria 5 mg oral 8-21 Instructio l tablet 18:50: ns, TAKE 1 Karen nn 41 TABLET BY MOUTH EVERY DAY, # 30 tab, 5 Refill(s), Pharmacy: [facility] [place] [address] amLODIPine Yes See Memoria 5 mg oral 8-21 Instructio l tablet 18:50: ns, TAKE 1 Karen nn 41 TABLET BY MOUTH EVERY DAY, # 30 tab, 5 Refill(s), Pharmacy: [facility] [place] [address] amLODIPine Yes See Memoria 5 mg oral 8-21 Instructio l tablet 18:50: ns, TAKE 1 Karen nn 41 TABLET BY MOUTH EVERY DAY, # 30 tab, 5 Refill(s), Pharmacy: [facility] [place] [address] amLODIPine Yes See Memoria 5 mg oral 8-21 Instructio l tablet 18:50: ns, TAKE 1 Karen nn 41 TABLET BY MOUTH EVERY DAY, # 30 tab, 5 Refill(s), Pharmacy: [facility] [place] [address] lisinopril No See Memoria 5 mg oral 7-31 Instructio l tablet 15:28: ns, # 90 Denis 34 tab, TAKE 1 TABLET BY MOUTH DAILY, Pharmacy: [facility] [place] [address] lisinopril No See Memoria 5 mg oral 7-31 Instructio l tablet 15:28: ns, # 90 Denis 34 tab, TAKE 1 TABLET BY MOUTH DAILY, Pharmacy: [facility] [place] [address] lisinopril No See Memoria 5 mg oral 7-31 Instructio l tablet 15:28: ns, # 90 [place] 34 tab, TAKE 1 TABLET BY MOUTH DAILY, Pharmacy: [facility] [place] [address] lisinopril No See Memoria 5 mg oral 7-31 Instructio l tablet 15:28: ns, # 90 Denis 34 tab, TAKE 1 TABLET BY MOUTH DAILY, Pharmacy: [facility] [place] [address] lisinopril No See Memoria 5 mg oral 7-31 Instructio l tablet 15:28: ns, # 90 [place] 34 tab, TAKE 1 TABLET BY MOUTH DAILY, Pharmacy: [facility] [place] [address] lisinopril No See Memoria 5 mg oral 7-31 Instructio l tablet 15:28: ns, # 90 Denis 34 tab, TAKE 1 TABLET BY MOUTH DAILY, Pharmacy: [facility] [address] lisinopril 2018-0 No See Memoria 5 mg oral 7-31 Instructio l tablet 15:28: ns, # 90 Denis 34 tab, TAKE 1 TABLET BY MOUTH DAILY, Pharmacy: [facility] [address] lisinopril 2018-0 No See Memoria 5 mg oral 7-31 Instructio l tablet 15:28: ns, # 90 Denis 34 tab, TAKE 1 TABLET BY MOUTH DAILY, Pharmacy: [facility] [address] allopurinol 2017-0 No 300 mg = 1 Memoria 300 mg oral 5-10 tab, PO, l tablet 13:59: Daily, # [place] 00 90 tab, 1 Refill(s), Pharmacy: [facility] [place] [id number] allopurinol 2017-0 No 300 mg = 1 Memoria 300 mg oral 5-10 tab, PO, l tablet 13:59: Daily, # [place] 00 90 tab, 1 Refill(s), Pharmacy: [facility] [address] allopurinol 2017-0 No 300 mg = 1 Memoria 300 mg oral 5-10 tab, PO, l tablet 13:59: Daily, # [place] 00 90 tab, 1 Refill(s), Pharmacy: [facility] [address] allopurinol 2017-0 No 300 mg = 1 Memoria 300 mg oral 5-10 tab, PO, l tablet 13:59: Daily, # Denis 00 90 tab, 1 Refill(s), Pharmacy: [facility] [place] [id number] allopurinol 2018-0 No 300 mg = 1 Memoria 300 mg oral 5-10 tab, PO, l tablet 13:59: Daily, # Denis 00 90 tab, 1 Refill(s), Pharmacy: [facility] [address] allopurinol 2018-0 No 300 mg = 1 Memoria 300 mg oral 5-10 tab, PO, l tablet 13:59: Daily, # Denis 00 90 tab, 1 Refill(s), Pharmacy: [facility] [address] allopurinol 2018-0 No 300 mg = 1 Memoria 300 mg oral 5-10 tab, PO, l tablet 13:59: Daily, # [place] 00 90 tab, 1 Refill(s), Pharmacy: [place] [address] allopurinol No 300 mg = 1 Memoria 300 mg oral 5-10 tab, PO, l tablet 13:59: Daily, # [place] 00 90 tab, 1 Refill(s), Pharmacy: [place] [address] lisinopril No See Memoria 5 mg oral 5-01 Instructio l tablet 12:38: ns, # 90 Denis 18 tab, TAKE 1 TABLET BY MOUTH DAILY, Pharmacy: [facility] [place] [address] ALLOPURINOL Yes See Memori a 300MG 5-01 Instructio l TABLETS 12:38: ns, # 90 [place] n 18 tab, TAKE 1 TABLET BY MOUTH DAILY, Pharmacy: [facility] [place] [address] lisinopril No See Memoria 5 mg oral 5-01 Instructio l tablet 12:38: ns, # 90 Denis 18 tab, TAKE 1 TABLET BY MOUTH DAILY, Pharmacy: [facility] [place] [address] ALLOPURINOL Yes See Memori a 300MG 5-01 Instructio l TABLETS 12:38: ns, # 90 Vicente n 18 tab, TAKE 1 TABLET BY MOUTH DAILY, Pharmacy: [facility] [place] [address] lisinopril No See Memoria 5 mg oral 5-01 Instructio l tablet 12:38: ns, # 90 Denis 18 tab, TAKE 1 TABLET BY MOUTH DAILY, Pharmacy: [facility] [place] [address] ALLOPURINOL Yes See Memori a 300MG 5-01 Instructio l TABLETS 12:38: ns, # 90 Vicente n 18 tab, TAKE 1 TABLET BY MOUTH DAILY, Pharmacy: [facility] [place] [address] lisinopril No See Memoria 5 mg oral 5-01 Instructio l tablet 12:38: ns, # 90 Denis 18 tab, TAKE 1 TABLET BY MOUTH DAILY, Pharmacy: [facility] [place] [address] ALLOPURINOL 0 Yes See Memori a 300MG 5-01 Instructio l TABLETS 12:38: ns, # 90 Vicente n 18 tab, TAKE 1 TABLET BY MOUTH DAILY, Pharmacy: [facility] [place] [address] lisinopril 0 No See Memoria 5 mg oral 5-01 Instructio l tablet 12:38: ns, # 90 Denis 18 tab, TAKE 1 TABLET BY MOUTH DAILY, Pharmacy: [place] [id number] ALLOPURINOL Yes See Memori a 300MG 5-01 Instructio l TABLETS 12:38: ns, # 90 Vicente n 18 tab, TAKE 1 TABLET BY MOUTH DAILY, Pharmacy: [place] [address] lisinopril 2018 No See Memoria 5 mg oral 5-01 Instructio l tablet 12:38: ns, # 90 Denis 18 tab, TAKE 1 TABLET BY MOUTH DAILY, Pharmacy: [facility] [place] [address] ALLOPURINOL Yes See Memori a 300MG 5-01 Instructio l TABLETS 12:38: ns, # 90 Vicente n 18 tab, TAKE 1 TABLET BY MOUTH DAILY, Pharmacy: [facility] [place] [address] lisinopril No See Memoria 5 mg oral 5-01 Instructio l tablet 12:38: ns, # 90 [place] 18 tab, TAKE 1 TABLET BY MOUTH DAILY, Pharmacy: [facility] [place] [address] ALLOPURINOL Yes See Memori a 300MG 5-01 Instructio l TABLETS 12:38: ns, # 90 Vicente n 18 tab, TAKE 1 TABLET BY MOUTH DAILY, Pharmacy: [facility] [place] [address] lisinopril No See Memoria 5 mg oral 5-01 Instructio l tablet 12:38: ns, # 90 [place] 18 tab, TAKE 1 TABLET BY MOUTH DAILY, Pharmacy: [facility] [place] [address] ALLOPURINOL Yes See Memori a 300MG 5-01 Instructio l TABLETS 12:38: ns, # 90 Vicente n 18 tab, TAKE 1 TABLET BY MOUTH DAILY, Pharmacy: [facility] [place] [address] calcitriol Yes 0.25 Memoria 0.25 mcg 3-28 microgram l oral 13:49: = 1 cap, [place] capsule 00 PO, Daily, # 90 cap, 3 Refill(s), Pharmacy: [facility] [place] [address] calcitriol 2017- Yes 0.25 Memoria 0.25 mcg 3-28 microgram l oral 13:49: = 1 cap, [place] capsule 00 PO, Daily, # 90 cap, 3 Refill(s), Pharmacy: [facility] [place] [address] calcitriol Yes 0.25 Memoria 0.25 mcg 3-28 microgram l oral 13:49: = 1 cap, [place] capsule 00 PO, Daily, # 90 cap, 3 Refill(s), Pharmacy: [facility] [place] [address] calcitriol Yes 0.25 Memoria 0.25 mcg 3-28 microgram l oral 13:49: = 1 cap, Denis capsule 00 PO, Daily, # 90 cap, 3 Refill(s), Pharmacy: [facility] [place] [address] calcitriol Yes 0.25 Memoria 0.25 mcg 3-28 microgram l oral 13:49: = 1 cap, [place] capsule 00 PO, Daily, # 90 cap, 3 Refill(s), Pharmacy: [facility] [place] [address] calcitriol Yes 0.25 Memoria 0.25 mcg 3-28 microgram l oral 13:49: = 1 cap, [place] capsule 00 PO, Daily, # 90 cap, 3 Refill(s), Pharmacy: [facility] [place] [address] calcitriol Yes 0.25 Memoria 0.25 mcg 3-28 microgram l oral 13:49: = 1 cap, Denis capsule 00 PO, Daily, # 90 cap, 3 Refill(s), Pharmacy: [facility] [place] [address] calcitriol Yes 0.25 Memoria 0.25 mcg 3-28 microgram l oral 13:49: = 1 cap, [place] capsule 00 PO, Daily, # 90 cap, 3 Refill(s), Pharmacy: [facility] [place] [address] Mupirocin Yes 1 appl, Memor ia 0.02 MG/MG 3-21 TOP, BID, l Topical 15:37: 30 grams Vicente n Ointment 21 3each, # 3 ea, 1 Refill(s), Pharmacy: [facility] [place] [address] Mupirocin Yes 1 appl, Memor ia 0.02 MG/MG 3-21 TOP, BID, l Topical 15:37: 30 grams Vicente n Ointment 21 3each, # 3 ea, 1 Refill(s), Pharmacy: [facility] [place] [address] Mupirocin Yes 1 appl, Memor ia 0.02 MG/MG 3-21 TOP, BID, l Topical 15:37: 30 grams Vicente n Ointment 21 3each, # 3 ea, 1 Refill(s), Pharmacy: [facility] [place] [address] Mupirocin Yes 1 appl, Memor ia 0.02 MG/MG 3-21 TOP, BID, l Topical 15:37: 30 grams Vicnete n Ointment 21 3each, # 3 ea, 1 Refill(s), Pharmacy: [facility] [address] Yes 1 appl, Memor ia 0.02 MG/MG 3-21 TOP, BID, l Topical 15:37: 30 grams Vicente n Ointment 21 3each, # 3 ea, 1 Refill(s), Pharmacy: [facility] [address] Yes 1 appl, Memor ia 0.02 MG/MG 3-21 TOP, BID, l Topical 15:37: 30 grams Vicente n Ointment 21 3each, # 3 ea, 1 Refill(s), Pharmacy: [facility] [address] Yes 1 appl, Memor ia 0.02 MG/MG 3-21 TOP, BID, l Topical 15:37: 30 grams Vicente n Ointment 21 3each, # 3 ea, 1 Refill(s), Pharmacy: [facility] [address] Yes 1 appl, Memor ia 0.02 MG/MG 3-21 TOP, BID, l Topical 15:37: 30 grams Vicente n Ointment 21 3each, # 3 ea, 1 Refill(s), Pharmacy: [facility] [address] Yes See Memori a n 40 mg 3-21 Instructio l oral tablet 15:36: ns, TAKE 1 [place] 22 TABLET BY MOUTH EVERY NIGHT AT BEDTIME, # 30 tab, 5 Refill(s), Pharmacy: [facility] [address] Yes See Memori a n 40 mg 3-21 Instructio l oral tablet 15:36: ns, TAKE 1 Denis 22 TABLET BY MOUTH EVERY NIGHT AT BEDTIME, # 30 tab, 5 Refill(s), Pharmacy: [facility] [address] Yes See Memori a n 40 mg 3-21 Instructio l oral tablet 15:36: ns, TAKE 1 [place] 22 TABLET BY MOUTH EVERY NIGHT AT BEDTIME, # 30 tab, 5 Refill(s), Pharmacy: [address] Yes See Memori a n 40 mg 3-21 Instructio l oral tablet 15:36: ns, TAKE 1 Denis 22 TABLET BY MOUTH EVERY NIGHT AT BEDTIME, # 30 tab, 5 Refill(s), Pharmacy: [address] Yes See Memori a n 40 mg 3-21 Instructio l oral tablet 15:36: ns, TAKE 1 Denis 22 TABLET BY MOUTH EVERY NIGHT AT BEDTIME, # 30 tab, 5 Refill(s), Pharmacy: [address] Yes See Memori a n 40 mg 3-21 Instructio l oral tablet 15:36: ns, TAKE 1 Denis 22 TABLET BY MOUTH EVERY NIGHT AT BEDTIME, # 30 tab, 5 Refill(s), Pharmacy: [address] Yes See Memori a n 40 mg 3-21 Instructio l oral tablet 15:36: ns, TAKE 1 [place] 22 TABLET BY MOUTH EVERY NIGHT AT BEDTIME, # 30 tab, 5 Refill(s), Pharmacy: [address] Yes See Memori a n 40 mg 3-21 Instructio l oral tablet 15:36: ns, TAKE 1 Denis 22 TABLET BY MOUTH EVERY NIGHT AT BEDTIME, # 30 tab, 5 Refill(s), [facility] [place] [address] [facility] mg oral 3-21 Instructio l tablet 15:36: ns, TAKE 1 Karen nn 18 TABLET BY MOUTH EVERY DAY, # 30 tab, 5 Refill(s), Pharmacy: [place] [address] amLODIPine Yes See Memoria 5 mg oral 3-21 Instructio l tablet 15:36: ns, TAKE 1 Karen nn 18 TABLET BY MOUTH EVERY DAY, # 30 tab, 5 Refill(s), Pharmacy: [place] [address] amLODIPine Yes See Memoria 5 mg oral 3-21 Instructio l tablet 15:36: ns, TAKE 1 Karen nn 18 TABLET BY MOUTH EVERY DAY, # 30 tab, 5 Refill(s), Pharmacy: [place] [address] amLODIPine Yes See Memoria 5 mg oral 3-21 Instructio l tablet 15:36: ns, TAKE 1 Karen nn 18 TABLET BY MOUTH EVERY DAY, # 30 tab, 5 Refill(s), Pharmacy: [place] [address] amLODIPine Yes See Memoria 5 mg oral 3-21 Instructio l tablet 15:36: ns, TAKE 1 Karen nn 18 TABLET BY MOUTH EVERY DAY, # 30 tab, 5 Refill(s), Pharmacy: [place] [address] amLODIPine Yes See Memoria 5 mg oral 3-21 Instructio l tablet 15:36: ns, TAKE 1 Karen nn 18 TABLET BY MOUTH EVERY DAY, # 30 tab, 5 Refill(s), Pharmacy: [place] [address] amLODIPine Yes See Memoria 5 mg oral 3-21 Instructio l tablet 15:36: ns, TAKE 1 Karen nn 18 TABLET BY MOUTH EVERY DAY, # 30 tab, 5 Refill(s), Pharmacy: [place] [address] amLODIPine Yes See Memoria 5 mg oral 3-21 Instructio l tablet 15:36: ns, TAKE 1 Karen nn 18 TABLET BY MOUTH EVERY DAY, # 30 tab, 5 Refill(s), Pharmacy: [place] [address] aspirin 81 Yes 81 mg = 1 Me moria mg tablet, 1-24 tab, PO, l enteric 16:34: Daily, # Vicente n coated 00 90 tab, 3 Refill(s) aspirin 81 Yes 81 mg = 1 Me moria mg tablet, 1-24 tab, PO, l enteric 16:34: Daily, # Vicente n coated 00 90 tab, 3 Refill(s) aspirin 81 2016- Yes 81 mg = 1 Me moria [...] 3 mL, l mL 01:00: Soln, NEB, [place] inhalation 00 Once, solution first dose 12/30/15 19:00: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, stop date 12/30/15 19:00: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 Xopenex 0 No Kyle K 0.63 mg = Mem oria 0.63 mg/3 3-11 Silvestre 3 mL, l mL 01:00: Soln, NEB, Denis inhalation 00 Once, solution first dose 12/30/15 19:00: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, stop date 12/30/15 19:00: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 Xopenex 0 No Kyle K 0.63 mg = Mem oria 0.63 mg/3 3-11 Silvestre 3 mL, l mL 01:00: Soln, NEB, [place] inhalation 00 Once, solution first dose 12/30/15 19:00: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, stop date 12/30/15 19:00: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 Xopenex 0 No Kyle K 0.63 mg = Mem oria 0.63 mg/3 3-11 Silvest[place] 3 mL, l mL 01:00: Soln, NEB, Denis inhalation 00 Once, solution first dose 12/30/15 19:00: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, stop date 12/30/15 19:00: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 Xopenex 2016-0 No Kyle K 0.63 mg = Mem oria 0.63 mg/3 3-11 Silvestre 3 mL, l mL 01:00: Soln, NEB, [place] inhalation 00 Once, solution first dose 12/30/15 19:00: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, stop date 12/30/15 19:00: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 Xopenex 2015-0 No Kyle K 0.63 mg = Mem oria 0.63 mg/3 3-11 Silvestre 3 mL, l mL 01:00: Soln, NEB, [place] inhalation 00 Once, solution first dose 12/30/15 19:00: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, stop date 12/30/15 19:00: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 Xopenex 2015-0 No Kyle K 0.63 mg = Mem oria 0.63 mg/3 3-11 Silvestre 3 mL, l mL 01:00: Soln, NEB, [place] inhalation 00 Once, solution first dose 12/30/15 19:00: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, stop date 12/30/15 19:00: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 Xopenex 2015-0 No Kyle K 0.63 mg = Mem oria 0.63 mg/3 3-11 Silvestre 3 mL, l mL 01:00: Soln, NEB, [place] inhalation 00 Once, solution first dose 12/30/15 19:00: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, stop date 12/30/15 19:00: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 Mis 2015-0 No Per[place] 300 mL, Memoria Medication 3-11 Wheat Soln-IV, l 00:03: IV, Once, [place] 00 first dose 12/30/15 18:03: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, stop date 12/30/15 18:03: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 Mis 2015-0 No [place] 300 mL, Memoria Medication 3-11 Wheat Soln-IV, l 00:03: IV, Once, Denis 00 first dose 12/30/15 18:03: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, stop date 12/30/15 18:03: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 Mis 2015-0 No [place] 300 mL, Memoria Medication 3-11 Wheat Soln-IV, l 00:03: IV, Once, Denis 00 first dose 12/30/15 18:03: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, stop date 12/30/15 18:03: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 [facility] No Perico 300 mL, Memoria Medication 3-11 [place] Soln-IV, l 00:03: IV, Once, [place] 00 first dose 12/30/15 18:03: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, stop date 12/30/15 18:03: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 [facility] No Perico 300 mL, Memoria Medication 3-11 Wheat Soln-IV, l 00:03: IV, Once, first dose 12/30/15 18:03: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, stop date 12/30/15 18:03: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 [facility] No Perico 300 mL, Memoria Medication 3-11 [place] Soln-IV, l 00:03: IV, Once, first dose 12/30/15 18:03: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, stop date 12/30/15 18:03: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 [facility] No Perico 300 mL, Memoria Medication 3-11 [place] Soln-IV, l 00:03: IV, Once, first dose 12/30/15 18:03: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, stop date 12/30/15 18:03: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 [facility] No Perico 300 mL, Memoria Medication 3-11 [place] Soln-IV, l 00:03: IV, Once, first dose 12/30/15 18:03: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, stop date 12/30/15 18:03: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 promethazin No Kyle K 12.5 mg = Memoria e 3-11 Silvestre 0.5 mL, l 00:02: Injection, Denis 00 IM, Once PRN for severe nausea, first dose 12/30/15 18:02: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 albuterol No Kyle K 2.5 mg = 3 Memoria 2.5 mg/3 mL 3-11 Silvest[place] mL, Soln, l (0.083%) 00:02: NEB, Once Herm connie inhalation 00 PRN for solution wheezing, first dose 12/30/15 18:02: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 Demerol HCl No Kyle K 12.5 mg = Memoria 3-11 [place] 0.25 mL, l 00:02: Injection, [place] 00 IV Push, Once PRN for shivers, first dose 12/30/15 18:02: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 ondansetron No Kyle K 4 mg = 2 Memoria 3-11 Sil[place] mL, l 00:02: Injection, [place] 00 IV Push, q15min PRN for nausea/vom iting, order duration: 2 doses, first dose 12/30/15 18:02: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, stop date Limited # of times Dilaudid No Kyle K 0.5 mg = Mem oria 3-11 [place] 0.25 mL, l 00:02: Injection, [place] 00 IV Push, q10min PRN for pain severe (7-10), first dose 12/30/15 18:02: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 diphenhydrA No Kyle K 25 mg = M emoria MINE 3-11 [place] 0.5 mL, l 00:02: Injection, [place] 00 IV Push, Once PRN for itching, first dose 12/30/15 18:02: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 LR 1,000 mL No Kyle K 1,000 mL, Memoria 3-11 [place] IV, 75 l 00:02: mL/hr, Denis 00 start date 12/30/15 18:02: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 [place] No Kyle K 10 mL, Me moria Flush 3-11 [place] Soln, IV l 00:02: Push, As Denis 00 Indicated PRN for flush, first dose 12/30/15 18:02: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 Bupivacaine No Kyle K 300 mL, M emoria 0.25% 300 3-11 [place] Nerve l mL pump 300 00:02: Block, 5 He r[place] mL 00 mL/hr, start date 12/30/15 18:02: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 promethazin No Kyle K 12.5 mg = Memoria e 3-11 [place] 0.5 mL, l 00:02: Injection, Denis 00 IM, Once PRN for severe nausea, first dose 12/30/15 18:02: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 albuterol No Kyle K 2.5 mg = 3 Memoria 2.5 mg/3 mL 3-11 [place] mL, Soln, l (0.083%) 00:02: NEB, Once Herm con[place] inhalation 00 PRN for solution wheezing, first dose 12/30/15 18:02: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 Demerol HCl No Kyle K 12.5 mg = Memoria 3-11 [place] 0.25 mL, l 00:02: Injection, Denis 00 IV Push, Once PRN for shivers, first dose 12/30/15 18:02: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 ondansetron No Kyle K 4 mg = 2 Memoria 3-11 [place] mL, l 00:02: Injection, Denis 00 IV Push, q15min PRN for nausea/vom iting, order duration: 2 doses, first dose 12/30/15 18:02: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, stop date Limited # of times Dilaudid No Kyle K 0.5 mg = Mem oria 3-11 [place] 0.25 mL, l 00:02: Injection, Denis 00 IV Push, q10min PRN for pain severe (7-10), first dose 12/30/15 18:02: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 diphenhydrA No Kyle K 25 mg = M emoria MINE 3-11 Sil[place] 0.5 mL, l 00:02: Injection, [place] 00 IV Push, Once PRN for itching, first dose 12/30/15 18:02: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 LR 1,000 mL No Kyle K 1,000 mL, Memoria 3-11 [place] IV, 75 l 00:02: mL/hr, Denis 00 start date 12/30/15 18:02: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 [place] No Kyle K 10 mL, Me moria Flush 3-11 Sil[place] Soln, IV l 00:02: Push, As Denis 00 Indicated PRN for flush, first dose 12/30/15 18:02: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 Bupivacaine No Kyle K 300 mL, M emoria 0.25% 300 3-11 Silvest[place] Nerve l mL pump 300 00:02: Block, 5 He rmann mL 00 mL/hr, start date 12/30/15 18:02: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 promethazin No Kyle K 12.5 mg = Memoria e 3-11 [place] 0.5 mL, l 00:02: Injection, Denis 00 IM, Once PRN for severe nausea, first dose 12/30/15 18:02: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 albuterol No Kyle K 2.5 mg = 3 Memoria 2.5 mg/3 mL 3-11 Silvest[place] mL, Soln, l (0.083%) 00:02: NEB, Once Herm connie inhalation 00 PRN for solution wheezing, first dose 12/30/15 18:02: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 Demerol HCl No Kyle K 12.5 mg = Memoria 3-11 [place] 0.25 mL, l 00:02: Injection, [place] 00 IV Push, Once PRN for shivers, first dose 12/30/15 18:02: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 ondansetron No Kyle K 4 mg = 2 Memoria 3-11 Sil[place] mL, l 00:02: Injection, [place] 00 IV Push, q15min PRN for nausea/vom iting, order duration: 2 doses, first dose 12/30/15 18:02: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, stop date Limited # of times Dilaudid No Kyle K 0.5 mg = Mem oria 3-11 [place] 0.25 mL, l 00:02: Injection, [place] 00 IV Push, q10min PRN for pain severe (7-10), first dose 12/30/15 18:02: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 diphenhydrA No Kyle K 25 mg = M emoria MINE 3-11 Sil[place] 0.5 mL, l 00:02: Injection, Denis 00 IV Push, Once PRN for itching, first dose 12/30/15 18:02: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 LR 1,000 mL No Kyle K 1,000 mL, Memoria 3-11 Silvest[place] IV, 75 l 00:02: mL/hr, Denis 00 start date 12/30/15 18:02: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 [place] No Kyle K 10 mL, Me moria Flush 3-11 Silvest[place] Soln, IV l 00:02: Push, As Denis 00 Indicated PRN for flush, first dose 12/30/15 18:02: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 Bupivacaine No Kyle K 300 mL, M emoria 0.25% 300 3-11 Silvest[place] Nerve l mL pump 300 00:02: Block, 5 He rmann mL 00 mL/hr, start date 12/30/15 18:02: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 promethazin No Kyle K 12.5 mg = Memoria e 3-11 [place] 0.5 mL, l 00:02: Injection, [place] 00 IM, Once PRN for severe nausea, first dose 12/30/15 18:02: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 albuterol No Kyle K 2.5 mg = 3 Memoria 2.5 mg/3 mL 3-11 [place] mL, Soln, l (0.083%) 00:02: NEB, Once Herm connie inhalation 00 PRN for solution wheezing, first dose 12/30/15 18:02: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 Demerol HCl No Kyle K 12.5 mg = Memoria 3-11 [place] 0.25 mL, l 00:02: Injection, [place] 00 IV Push, Once PRN for shivers, first dose 12/30/15 18:02: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 ondansetron No Kyle K 4 mg = 2 Memoria 3-11 Sil[place] mL, l 00:02: Injection, [place] 00 IV Push, q15min PRN for nausea/vom iting, order duration: 2 doses, first dose 12/30/15 18:02: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, stop date Limited # of times Dilaudid No Kyle K 0.5 mg = Mem oria 3-11 [place] 0.25 mL, l 00:02: Injection, [place] 00 IV Push, q10min PRN for pain severe (7-10), first dose 12/30/15 18:02: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 diphenhydrA No Kyle K 25 mg = M emoria MINE 3-11 Sil[place] 0.5 mL, l 00:02: Injection, [place] 00 IV Push, Once PRN for itching, first dose 12/30/15 18:02: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 LR 1,000 mL No Kyle K 1,000 mL, Memoria 3-11 Silvestre IV, 75 l 00:02: mL/hr, Denis 00 start date 12/30/15 18:02: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 [place] No Kyle K 10 mL, Me moria Flush 3-11 Silvestre Soln, IV l 00:02: Push, As [place] 00 Indicated PRN for flush, first dose 12/30/15 18:02: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 Bupivacaine No Kyle K 300 mL, M emoria 0.25% 300 3-11 Silvest[place] Nerve l mL pump 300 00:02: Block, 5 He rmann mL 00 mL/hr, start date 12/30/15 18:02: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 promethazin No Kyle K 12.5 mg = Memoria e 3-11 Sil[place] 0.5 mL, l 00:02: Injection, Denis 00 IM, Once PRN for severe nausea, first dose 12/30/15 18:02: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 albuterol No Kyle K 2.5 mg = 3 Memoria 2.5 mg/3 mL 3-11 Silvest[place] mL, Soln, l (0.083%) 00:02: NEB, Once Herm connie inhalation 00 PRN for solution wheezing, first dose 12/30/15 18:02: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 Demerol HCl No Kyle K 12.5 mg = Memoria 3-11 Sil[place] 0.25 mL, l 00:02: Injection, Denis 00 IV Push, Once PRN for shivers, first dose 12/30/15 18:02: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 ondansetron No Kyle K 4 mg = 2 Memoria 3-11 Silvest[place] mL, l 00:02: Injection, [place] 00 IV Push, q15min PRN for nausea/vom iting, order duration: 2 doses, first dose 12/30/15 18:02: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, stop date Limited # of times Dilaudid No Kyle K 0.5 mg = Mem oria 3-11 Silvestre 0.25 mL, l 00:02: Injection, [place] 00 IV Push, q10min PRN for pain severe (7-10), first dose 12/30/15 18:02:00 CAD CAM PROGRAMMER diphenhydrA No Kyle K 25 mg = M emoria MINE 3-11 Silvest[place] 0.5 mL, l 00:02: Injection, Denis 00 IV Push, Once PRN for itching, first dose 12/30/15 18:02:00 CAD CAM PROGRAMMER LR 1,000 mL No Kyle K 1,000 mL, Memoria 3-11 Silvestre IV, 75 l 00:02: mL/hr, Denis 00 start date 12/30/15 18:02:00 CAD CAM PROGRAMMER [place] No Kyle K 10 mL, Me moria Flush 3-11 Silvestre Soln, IV l 00:02: Push, As Denis 00 Indicated PRN for flush, first dose 12/30/15 18:02:00 CAD CAM PROGRAMMER Bupivacaine No Kyle K 300 mL, M emoria 0.25% 300 3-11 Silvestre Nerve l mL pump 300 00:02: Block, 5 He rmann mL 00 mL/hr, start date 12/30/15 18:02:00 CAD CAM PROGRAMMER promethazin No Kyle K 12.5 mg = Memoria e 3-11 Silvest[place] 0.5 mL, l 00:02: Injection, [place] 00 IM, Once PRN for severe nausea, first dose 12/30/15 18:02:00 CAD CAM PROGRAMMER albuterol No Kyle K 2.5 mg = 3 Memoria 2.5 mg/3 mL 3-11 Silvestre mL, Soln, l (0.083%) 00:02: NEB, Once Herm connie inhalation 00 PRN for solution wheezing, first dose 12/30/15 18:02:00 CAD CAM PROGRAMMER Demerol HCl No Kyle K 12.5 mg = Memoria 3-11 Sil[place] 0.25 mL, l 00:02: Injection, Denis 00 IV Push, Once PRN for shivers, first dose 12/30/15 18:02:00 CAD CAM PROGRAMMER ondansetron No Kyle K 4 mg = 2 Memoria 3-11 Sil[place] mL, l 00:02: Injection, [place] 00 IV Push, q15min PRN for nausea/vom iting, order duration: 2 doses, first dose 12/30/15 18:02:00 CAD CAM PROGRAMMER, stop date Limited # of times Dilaudid No Kyle K 0.5 mg = Mem oria 3-11 Silvestre 0.25 mL, l 00:02: Injection, [place] 00 IV Push, q10min PRN for pain severe (7-10), first dose 12/30/15 18:02:00 CAD CAM PROGRAMMER diphenhydrA No Kyle K 25 mg = M emoria MINE 3-11 Silvestre 0.5 mL, l 00:02: Injection, Denis 00 IV Push, Once PRN for itching, first dose 12/30/15 18:02:00 CAD CAM PROGRAMMER LR 1,000 mL No Kyle K 1,000 mL, Memoria 3-11 Silvestre IV, 75 l 00:02: mL/hr, Denis 00 start date 12/30/15 18:02:00 CAD CAM PROGRAMMER [place] No Kyle K 10 mL, Me moria Flush 3-11 Silvestre Soln, IV l 00:02: Push, As [place] 00 Indicated PRN for flush, first dose 12/30/15 18:02:00 CAD CAM PROGRAMMER Bupivacaine No Kyle K 300 mL, M emoria 0.25% 300 3-11 Silvestre Nerve l mL pump 300 00:02: Block, 5 He rmann mL 00 mL/hr, start date 12/30/15 18:02:00 CAD CAM PROGRAMMER promethazin No Kyle K 12.5 mg = Memoria e 3-11 Sil[place] 0.5 mL, l 00:02: Injection, [place] 00 IM, Once PRN for severe nausea, first dose 12/30/15 18:02:00 CAD CAM PROGRAMMER albuterol No Kyle K 2.5 mg = 3 Memoria 2.5 mg/3 mL 3-11 Sil[place] mL, Soln, l (0.083%) 00:02: NEB, Once Herm connie inhalation 00 PRN for solution wheezing, first dose 12/30/15 18:02:00 CAD CAM PROGRAMMER Demerol HCl No Kyle K 12.5 mg = Memoria 3-11 [place] 0.25 mL, l 00:02: Injection, Denis 00 IV Push, Once PRN for shivers, first dose 12/30/15 18:02:00 CAD CAM PROGRAMMER ondansetron No Kyle K 4 mg = 2 Memoria 3-11 Sil[place] mL, l 00:02: Injection, Denis 00 IV Push, q15min PRN for nausea/vom iting, order duration: 2 doses, first dose 12/30/15 18:02:00 [employer], stop date Limited # of times Dilaudid No Kyle K 0.5 mg = Mem oria 3-11 Silvestre 0.25 mL, l 00:02: Injection, [place] 00 IV Push, q10min PRN for pain severe (7-10), first dose 12/30/15 18:02:00 [employer] diphenhydrA No Kyle K 25 mg = M emoria MINE 3-11 Silvestre 0.5 mL, l 00:02: Injection, Denis 00 IV Push, Once PRN for itching, first dose 12/30/15 18:02:00 [employer] LR 1,000 mL No Kyle K 1,000 mL, Memoria 3-11 Silvestre IV, 75 l 00:02: mL/hr, Denis 00 start date 12/30/15 18:02:00 [employer] [place] Lock No Kyle K 10 mL, Me moria Flush 3-11 Silvestre Soln, IV l 00:02: Push, As Denis 00 Indicated PRN for flush, first dose 12/30/15 18:02:00 CAD CAM PROGRAMMER Bupivacaine No Kyle K 300 mL, M emoria 0.25% 300 3-11 Silvestre Nerve l mL pump 300 00:02: Block, 5 He rmann mL 00 mL/hr, start date 12/30/15 18:02:00 CAD CAM PROGRAMMER promethazin No Kyle K 12.5 mg = Memoria e 3-11 Silvestre 0.5 mL, l 00:02: Injection, [place] 00 IM, Once PRN for severe nausea, first dose 12/30/15 18:02:00 CAD CAM PROGRAMMER albuterol No Kyle K 2.5 mg = 3 Memoria 2.5 mg/3 mL 3-11 Silvestre mL, Soln, l (0.083%) 00:02: NEB, Once Herm connie inhalation 00 PRN for solution wheezing, first dose 12/30/15 18:02:00 CAD CAM PROGRAMMER Demerol HCl No Kyle K 12.5 mg = Memoria 3-11 Silvestre 0.25 mL, l 00:02: Injection, [place] 00 IV Push, Once PRN for shivers, first dose 12/30/15 18:02:00 CAD CAM PROGRAMMER ondansetron No Kyle K 4 mg = 2 Memoria 3-11 Silvestre mL, l 00:02: Injection, Denis 00 IV Push, q15min PRN for nausea/vom iting, order duration: 2 doses, first dose 12/30/15 18:02:00 CAD CAM PROGRAMMER, stop date Limited # of times Dilaudid No Kyle K 0.5 mg = Mem oria 3-11 Silvestre 0.25 mL, l 00:02: Injection, IV Push, q10min PRN for pain severe (7-10), first dose 12/30/15 18:02:00 CAD CAM PROGRAMMER diphenhydrA No Kyle K 25 mg = M emoria MINE 3-11 Silvestre 0.5 mL, l 00:02: Injection, IV Push, Once PRN for itching, first dose 12/30/15 18:02:00 CAD CAM PROGRAMMER LR 1,000 mL No Kyle K 1,000 mL, Memoria 3-11 Silvestre IV, 75 l 00:02: mL/hr, start date 12/30/15 18:02:00 CAD CAM PROGRAMMER Saline Lock No Kyle K 10 mL, Me moria Flush 3-11 Silvestre Soln, IV l 00:02: Push, As Indicated PRN for flush, first dose 12/30/15 18:02:00 CAD CAM PROGRAMMER Bupivacaine No Kyle K 300 mL, M emoria 0.25% 300 3-11 Silvestre Nerve l mL pump 300 00:02: Block, 5 He rmann mL 00 mL/hr, start date 12/30/15 18:02:00 CAD CAM PROGRAMMER [facility] No [place] 1,000 mL, Memori a Medication 3-10 Wheat Soln-IV, l 23:42: IV, Once, first dose 12/30/15 17:42:00 CAD CAM PROGRAMMER, stop date 12/30/15 17:42:00 CAD CAM PROGRAMMER [facility] [place] No Perico 1,000 mL, Memori a Medication 3-10 Wheat Soln-IV, l 23:42: IV, Once, first dose 12/30/15 17:42:00 CAD CAM PROGRAMMER, stop date 12/30/15 17:42:00 CAD CAM PROGRAMMER [facility] [place] No Perico 1,000 mL, Memori a Medication 3-10 Wheat Soln-IV, l 23:42: IV, Once, first dose 12/30/15 17:42:00 CAD CAM PROGRAMMER, stop date 12/30/15 17:42:00 CAD CAM PROGRAMMER [facility] [place] No Perico 1,000 mL, Memori a Medication 3-10 Wheat Soln-IV, l 23:42: IV, Once, Denis first dose 12/30/15 17:42:00 CAD CAM PROGRAMMER, stop date 12/30/15 17:42:00 CAD CAM PROGRAMMER [facility] [place] No Perico 1,000 mL, Memori a Medication 3-10 Wheat Soln-IV, l 23:42: IV, Once, [place] first dose 12/30/15 17:42:00 CAD CAM PROGRAMMER, stop date 12/30/15 17:42:00 CAD CAM PROGRAMMER [facility] [place] No Perico 1,000 mL, Memori a Medication 3-10 Wheat Soln-IV, l 23:42: IV, Once, Denis 00 first dose 12/30/15 17:42:00 CAD CAM PROGRAMMER, stop date 12/30/15 17:42:00 CAD CAM PROGRAMMER [facility] [place] No Perico 1,000 mL, Memori a Medication 3-10 Wheat Soln-IV, l 23:42: IV, Once, Denis first dose 12/30/15 17:42:00 CAD CAM PROGRAMMER, stop date 12/30/15 17:42:00 CAD CAM PROGRAMMER [facility] [place] No Perico 1,000 mL, Memori a Medication 3-10 Wheat Soln-IV, l 23:42: IV, Once, Denis 00 first dose 12/30/15 17:42:00 CAD CAM PROGRAMMER, stop date 12/30/15 17:42:00 CAD CAM PROGRAMMER fenta[facility] No Perico 25 mcg = Mem oria 3-10 Wheat 0.5 mL, l 23:20: Injection, [place] 00 IV, Once, first dose 12/30/15 17:20:00 CAD CAM PROGRAMMER, stop date 12/30/15 17:20:00 CAD CAM PROGRAMMER fenta[facility] No Perico 25 mcg = Mem oria 3-10 Wheat 0.5 mL, l 23:20: Injection, Denis 00 IV, Once, first dose 12/30/15 17:20:00 CAD CAM PROGRAMMER, stop date 12/30/15 17:20:00 CAD CAM PROGRAMMER fentaNYL No Perico 25 mcg = Mem oria 3-10 Wheat 0.5 mL, l 23:20: Injection, [place] 00 IV, Once, first dose 12/30/15 17:20:00 CAD CAM PROGRAMMER, stop date 12/30/15 17:20:00 CAD CAM PROGRAMMER fentaNYL 2016-0 No Perico 25 mcg = Mem oria 3-10 Wheat 0.5 mL, l 23:20: Injection, [place] 00 IV, Once, first dose 12/30/15 17:20:00 CAD CAM PROGRAMMER, stop date 12/30/15 17:20:00 CAD CAM PROGRAMMER fentaNYL 2016-0 No Perico 25 mcg = Mem oria 3-10 Wheat 0.5 mL, l 23:20: Injection, Denis 00 IV, Once, first dose 12/30/15 17:20:00 CAD CAM PROGRAMMER, stop date 12/30/15 17:20:00 CAD CAM PROGRAMMER fentaNYL 2015-0 No Perico 25 mcg = Mem oria 3-10 Wheat 0.5 mL, l 23:20: Injection, Denis 00 IV, Once, first dose 12/30/15 17:20:00 CAD CAM PROGRAMMER, stop date 12/30/15 17:20:00 CAD CAM PROGRAMMER fentaNYL 2016-0 No Perico 25 mcg = Mem oria 3-10 Wheat 0.5 mL, l 23:20: Injection, [place] 00 IV, Once, first dose 12/30/15 17:20:00 CAD CAM PROGRAMMER, stop date 12/30/15 17:20:00 CAD CAM PROGRAMMER fentaNYL 2015-0 No Perico 25 mcg = Mem oria 3-10 Wheat 0.5 mL, l 23:20: Injection, Denis 00 IV, Once, first dose 12/30/15 17:20:00 CAD CAM PROGRAMMER, stop date 12/30/15 17:20:00 CAD CAM PROGRAMMER ondansetron 2015-0 No Perico 4 mg = 2 Memoria 3-10 Wheat mL, l 23:03: Injection, Denis 00 IV, Once, first dose 12/30/15 17:03:00 CAD CAM PROGRAMMER, stop date 12/30/15 17:03:00 CAD CAM PROGRAMMER ondansetron 2015-0 No Per[place] 4 mg = 2 Memoria 3-10 Wheat mL, l 23:03: Injection, [place] 00 IV, Once, first dose 12/30/15 17:03:00 CAD CAM PROGRAMMER, stop date 12/30/15 17:03:00 CAD CAM PROGRAMMER ondansetron 2015-0 No Perico 4 mg = 2 Memoria 3-10 Wheat mL, l 23:03: Injection, [place] 00 IV, Once, first dose 12/30/15 17:03:00 CAD CAM PROGRAMMER, stop date 12/30/15 17:03:00 CAD CAM PROGRAMMER ondansetron 2016-0 No Perico 4 mg = 2 Memoria 3-10 Wheat mL, l 23:03: Injection, [place] 00 IV, Once, first dose 12/30/15 17:03:00 CAD CAM PROGRAMMER, stop date 12/30/15 17:03:00 CAD CAM PROGRAMMER ondansetron 2015-0 No [place] 4 mg = 2 Memoria 3-10 Wheat mL, l 23:03: Injection, [place] 00 IV, Once, first dose 12/30/15 17:03:00 CAD CAM PROGRAMMER, stop date 12/30/15 17:03:00 CAD CAM PROGRAMMER ondansetron 2015-0 No Perico 4 mg = 2 Memoria 3-10 Wheat mL, l 23:03: Injection, [place] 00 IV, Once, first dose 12/30/15 17:03:00 CAD CAM PROGRAMMER, stop date 12/30/15 17:03:00 CAD CAM PROGRAMMER ondansetron 2016-0 No Perico 4 mg = 2 Memoria 3-10 Wheat mL, l 23:03: Injection, Denis 00 IV, Once, first dose 12/30/15 17:03:00 CAD CAM PROGRAMMER, stop date 12/30/15 17:03:00 CAD CAM PROGRAMMER ondansetron 2015-0 No Perico 4 mg = 2 Memoria 3-10 Wheat mL, l 23:03: Injection, [place] 00 IV, Once, first dose 12/30/15 17:03:00 CAD CAM PROGRAMMER, stop date 12/30/15 17:03:00 CAD CAM PROGRAMMER fentaNYL 2016-0 No Per[place] 25 mcg = Mem oria 3-10 Wheat 0.5 mL, l 23:00: Injection, [place] 00 IV, Once, first dose 12/30/15 17:00:00 CAD CAM PROGRAMMER, stop date 12/30/15 17:00:00 CAD CAM PROGRAMMER fentaNYL 2016-0 No [place] 25 mcg = Mem oria 3-10 Wheat 0.5 mL, l 23:00: Injection, [place] 00 IV, Once, first dose 12/30/15 17:00:00 CAD CAM PROGRAMMER, stop date 12/30/15 17:00:00 CAD CAM PROGRAMMER fentaNYL 2015-0 No Perico 25 mcg = Mem oria 3-10 Wheat 0.5 mL, l 23:00: Injection, [place] 00 IV, Once, first dose 12/30/15 17:00:00 CAD CAM PROGRAMMER, stop date 12/30/15 17:00:00 CAD CAM PROGRAMMER fentaNYL 2016-0 No [place] 25 mcg = Mem oria 3-10 Wheat 0.5 mL, l 23:00: Injection, Denis 00 IV, Once, first dose 12/30/15 17:00:00 CAD CAM PROGRAMMER, stop date 12/30/15 17:00:00 CAD CAM PROGRAMMER fentaNYL 2016-0 No Perico 25 mcg = Mem oria 3-10 Wheat 0.5 mL, l 23:00: Injection, Denis 00 IV, Once, first dose 12/30/15 17:00:00 CAD CAM PROGRAMMER, stop date 12/30/15 17:00:00 CAD CAM PROGRAMMER fentaNYL 2016-0 No Perico 25 mcg = Mem oria 3-10 Wheat 0.5 mL, l 23:00: Injection, Denis 00 IV, Once, first dose 12/30/15 17:00:00 CAD CAM PROGRAMMER, stop date 12/30/15 17:00:00 CAD CAM PROGRAMMER fentaNYL 2016-0 No [place] 25 mcg = Mem oria 3-10 Wheat 0.5 mL, l 23:00: Injection, Denis 00 IV, Once, first dose 12/30/15 17:00:00 CAD CAM PROGRAMMER, stop date 12/30/15 17:00:00 CAD CAM PROGRAMMER fentaNYL 2016-0 No Perico 25 mcg = Mem oria 3-10 Wheat 0.5 mL, l 23:00: Injection, [place] 00 IV, Once, first dose 12/30/15 17:00:00 CAD CAM PROGRAMMER, stop date 12/30/15 17:00:00 CAD CAM PROGRAMMER fentaNYL 2016-0 No Perico 25 mcg = Mem oria 3-10 Wheat 0.5 mL, l 22:48: Injection, Denis 00 IV, Once, first dose 12/30/15 16:48:00 CAD CAM PROGRAMMER, stop date 12/30/15 16:48:00 CAD CAM PROGRAMMER fentaNYL 2016-0 No Perico 25 mcg = Mem oria 3-10 Wheat 0.5 mL, l 22:48: Injection, Denis 00 IV, Once, first dose 12/30/15 16:48:00 CAD CAM PROGRAMMER, stop date 12/30/15 16:48:00 CAD CAM PROGRAMMER fentaNYL 2016-0 No Perico 25 mcg = Mem oria 3-10 Wheat 0.5 mL, l 22:48: Injection, [place] 00 IV, Once, first dose 12/30/15 16:48:00 CAD CAM PROGRAMMER, stop date 12/30/15 16:48:00 CAD CAM PROGRAMMER fentaNYL 2015- No Perico 25 mcg = Mem oria 3-10 Wheat 0.5 mL, l 22:48: Injection, Denis 00 IV, Once, first dose 12/30/15 16:48:00 CAD CAM PROGRAMMER, stop date 12/30/15 16:48:00 CAD CAM PROGRAMMER fentaNYL 2015- No Perico 25 mcg = Mem oria 3-10 Wheat 0.5 mL, l 22:48: Injection, [place] 00 IV, Once, first dose 12/30/15 16:48:00 CAD CAM PROGRAMMER, stop date 12/30/15 16:48:00 CAD CAM PROGRAMMER fentaNYL 2015- No Perico 25 mcg = Mem oria 3-10 Wheat 0.5 mL, l 22:48: Injection, Denis 00 IV, Once, first dose 12/30/15 16:48:00 CAD CAM PROGRAMMER, stop date 12/30/15 16:48:00 CAD CAM PROGRAMMER fentaNYL 2015- No Perico 25 mcg = Mem oria 3-10 Wheat 0.5 mL, l 22:48: Injection, Denis 00 IV, Once, first dose 12/30/15 16:48:00 CAD CAM PROGRAMMER, stop date 12/30/15 16:48:00 CAD CAM PROGRAMMER fentaNYL 2015- No Perico 25 mcg = Mem oria 3-10 Wheat 0.5 mL, l 22:48: Injection, Denis 00 IV, Once, first dose 12/30/15 16:48:00 CAD CAM PROGRAMMER, stop date 12/30/15 16:48:00 CAD CAM PROGRAMMER fenta[facility] No Perico 25 mcg = Mem oria 3-10 Wheat 0.5 mL, l 22:37: Injection, [place] 00 IV, Once, first dose 12/30/15 16:37:00 CAD CAM PROGRAMMER, stop date 12/30/15 16:37:00 CAD CAM PROGRAMMER fentaNYL 2015- No Perico 25 mcg = Mem oria 3-10 Wheat 0.5 mL, l 22:37: Injection, [place] 00 IV, Once, first dose 12/30/15 16:37:00 CAD CAM PROGRAMMER, stop date 12/30/15 16:37:00 CAD CAM PROGRAMMER fentaNYL 2015-0 No [place]ico 25 mcg = Mem oria 3-10 Wheat 0.5 mL, l 22:37: Injection, Denis 00 IV, Once, first dose 12/30/15 16:37:00 CAD CAM PROGRAMMER, stop date 12/30/15 16:37:00 CAD CAM PROGRAMMER fentaNYL 2016-0 No Perico 25 mcg = Mem oria 3-10 Wheat 0.5 mL, l 22:37: Injection, [place] 00 IV, Once, first dose 12/30/15 16:37:00 CAD CAM PROGRAMMER, stop date 12/30/15 16:37:00 CAD CAM PROGRAMMER fentaNYL 2015-0 No Perico 25 mcg = Mem oria 3-10 Wheat 0.5 mL, l 22:37: Injection, Denis 00 IV, Once, first dose 12/30/15 16:37:00 CAD CAM PROGRAMMER, stop date 12/30/15 16:37:00 CAD CAM PROGRAMMER fentaNYL 2016-0 No Perico 25 mcg = Mem oria 3-10 Wheat 0.5 mL, l 22:37: Injection, [place] 00 IV, Once, first dose 12/30/15 16:37:00 CAD CAM PROGRAMMER, stop date 12/30/15 16:37:00 CAD CAM PROGRAMMER fentaNYL 2015-0 No Perico 25 mcg = Mem oria 3-10 Wheat 0.5 mL, l 22:37: Injection, Denis 00 IV, Once, first dose 12/30/15 16:37:00 CAD CAM PROGRAMMER, stop date 12/30/15 16:37:00 CAD CAM PROGRAMMER fentaNYL 2015-0 No Perico 25 mcg = Mem oria 3-10 Wheat 0.5 mL, l 22:37: Injection, [place] 00 IV, Once, first dose 12/30/15 16:37:00 CAD CAM PROGRAMMER, stop date 12/30/15 16:37:00 CAD CAM PROGRAMMER dexamethaso 2016-0 No Perico 8 mg = 2 Memoria ne 3-10 Wheat mL, l 22:23: Injection, Denis 00 IV, Once, first dose 12/30/15 16:23:00 CAD CAM PROGRAMMER, stop date 12/30/15 16:23:00 CAD CAM PROGRAMMER dexamethaso 2016-0 No [place]ico 8 mg = 2 Memoria ne 3-10 Wheat mL, l 22:23: Injection, [place] 00 IV, Once, first dose 12/30/15 16:23:00 CAD CAM PROGRAMMER, stop date 12/30/15 16:23:00 CAD CAM PROGRAMMER dexamethaso 2016-0 No Perico 8 mg = 2 Memoria ne 3-10 Wheat mL, l 22:23: Injection, Denis 00 IV, Once, first dose 12/30/15 16:23:00 CAD CAM PROGRAMMER, stop date 12/30/15 16:23:00 CAD CAM PROGRAMMER dexamethaso 2016-0 No [place] 8 mg = 2 Memoria ne 3-10 Wheat mL, l 22:23: Injection, [place] 00 IV, Once, first dose 12/30/15 16:23:00 CAD CAM PROGRAMMER, stop date 12/30/15 16:23:00 CAD CAM PROGRAMMER dexamethaso 2016-0 No [place]ico 8 mg = 2 Memoria ne 3-10 Wheat mL, l 22:23: Injection, Denis 00 IV, Once, first dose 12/30/15 16:23:00 CAD CAM PROGRAMMER, stop date 12/30/15 16:23:00 CAD CAM PROGRAMMER dexamethaso 2016-0 No [place]ico 8 mg = 2 Memoria ne 3-10 Wheat mL, l 22:23: Injection, [place] 00 IV, Once, first dose 12/30/15 16:23:00 CAD CAM PROGRAMMER, stop date 12/30/15 16:23:00 CAD CAM PROGRAMMER dexamethaso 2016-0 No Perico 8 mg = 2 Memoria ne 3-10 Wheat mL, l 22:23: Injection, Denis 00 IV, Once, first dose 12/30/15 16:23:00 CAD CAM PROGRAMMER, stop date 12/30/15 16:23:00 CAD CAM PROGRAMMER dexamethaso 2016-0 No [place] 8 mg = 2 Memoria ne 3-10 Wheat mL, l 22:23: Injection, [place] 00 IV, Once, first dose 12/30/15 16:23:00 CAD CAM PROGRAMMER, stop date 12/30/15 16:23:00 CAD CAM PROGRAMMER Misc 2016-0 No [place]ico 1,000 mL, Memori a Medication 3-10 Wheat Soln-IV, l 22:21: IV, Once, Denis 00 first dose 12/30/15 16:21:00 CAD CAM PROGRAMMER, stop date 12/30/15 16:21:00 CAD CAM PROGRAMMER Misc 2016-0 No [place] 1,000 mL, Memori a Medication 3-10 Wheat Soln-IV, l 22:21: IV, Once, Denis first dose 12/30/15 16:21:00 CAD CAM PROGRAMMER, stop date 12/30/15 16:21:00 CAD CAM PROGRAMMER [facility] 2016-0 No Perico 1,000 mL, Memori a Medication 3-10 Wheat Soln-IV, l 22:21: IV, Once, Denis 00 first dose 12/30/15 16:21:00 CAD CAM PROGRAMMER, stop date 12/30/15 16:21:00 CAD CAM PROGRAMMER [facility] 2015-0 No [place]ico 1,000 mL, Memori a Medication 3-10 Wheat Soln-IV, l 22:21: IV, Once, Denis 00 first dose 12/30/15 16:21:00 CAD CAM PROGRAMMER, stop date 12/30/15 16:21:00 CAD CAM PROGRAMMER [facility] 0 No Perico 1,000 mL, Memori a Medication 3-10 Wheat Soln-IV, l 22:21: IV, Once, [place] 00 first dose 12/30/15 16:21:00 CAD CAM PROGRAMMER, stop date 12/30/15 16:21:00 CAD CAM PROGRAMMER [facility] 0 No Perico 1,000 mL, Memori a Medication 3-10 Wheat Soln-IV, l 22:21: IV, Once, Denis 00 first dose 12/30/15 16:21:00 CAD CAM PROGRAMMER, stop date 12/30/15 16:21:00 CAD CAM PROGRAMMER [facility] 2015-0 No [place] 1,000 mL, Memori a Medication 3-10 Wheat Soln-IV, l 22:21: IV, Once, Denis 00 first dose 12/30/15 16:21:00 CAD CAM PROGRAMMER, stop date 12/30/15 16:21:00 CAD CAM PROGRAMMER [facility] 0 No Perico 1,000 mL, Memori a Medication 3-10 Wheat Soln-IV, l 22:21: IV, Once, Denis 00 first dose 12/30/15 16:21:00 CAD CAM PROGRAMMER, stop date 12/30/15 16:21:00 CAD CAM PROGRAMMER clindamycin 2015-0 Yes [place] 928.125 M emoria 3-10 Wheat mg, l 22:18: Soln-IV, Denis 00 IV, Once, first dose 12/30/15 16:18:00 CAD CAM PROGRAMMER, stop date 12/30/15 16:18:00 CAD CAM PROGRAMMER clindamycin 2015-0 Yes [place] 928.125 M emoria 3-10 Wheat mg, l 22:18: Soln-IV, Denis 00 IV, Once, first dose 12/30/15 16:18:00 CAD CAM PROGRAMMER, stop date 12/30/15 16:18:00 CAD CAM PROGRAMMER clindamycin 2015-0 Yes [place] 928.125 M emoria 3-10 Wheat mg, l 22:18: Soln-IV, Denis 00 IV, Once, first dose 12/30/15 16:18:00 CAD CAM PROGRAMMER, stop date 12/30/15 16:18:00 CAD CAM PROGRAMMER clindamycin 2015-0 Yes [place] 928.125 M emoria 3-10 Wheat mg, l 22:18: Soln-IV, [place] 00 IV, Once, first dose 12/30/15 16:18:00 CAD CAM PROGRAMMER, stop date 12/30/15 16:18:00 CAD CAM PROGRAMMER clindamycin 2015-0 Yes [place] 928.125 M emoria 3-10 Wheat mg, l 22:18: Soln-IV, Denis 00 IV, Once, first dose 12/30/15 16:18:00 CAD CAM PROGRAMMER, stop date 12/30/15 16:18:00 CAD CAM PROGRAMMER clindamycin 2015-0 Yes [place] 928.125 M emoria 3-10 Wheat mg, l 22:18: Soln-IV, [place] 00 IV, Once, first dose 12/30/15 16:18:00 CAD CAM PROGRAMMER, stop date 12/30/15 16:18:00 CAD CAM PROGRAMMER clindamycin 2015-0 Yes [place] 928.125 M emoria 3-10 Wheat mg, l 22:18: Soln-IV, [place] 00 IV, Once, first dose 12/30/15 16:18:00 CAD CAM PROGRAMMER, stop date 12/30/15 16:18:00 CAD CAM PROGRAMMER clindamycin 2015-0 Yes [place] 928.125 M emoria 3-10 Wheat mg, l 22:18: Soln-IV, [place] 00 IV, Once, first dose 12/30/15 16:18:00 CAD CAM PROGRAMMER, stop date 12/30/15 16:18:00 CAD CAM PROGRAMMER fentaNYL 2015-0 No [place] 25 mcg = Mem oria 3-10 Wheat 0.5 mL, l 22:05: Injection, Denis 00 IV, Once, first dose 12/30/15 16:05:00 CAD CAM PROGRAMMER, stop date 12/30/15 16:05:00 CAD CAM PROGRAMMER midazolam 2016-0 No [place] 0.5 mg = Me moria 3-10 Wheat 0.5 mL, l 22:05: Injection, Denis 00 IV, Once, first dose 12/30/15 16:05:00 CAD CAM PROGRAMMER, stop date 12/30/15 16:05:00 CAD CAM PROGRAMMER fenta[facility]L 2016-0 No [place] 25 mcg = Mem oria 3-10 Wheat 0.5 mL, l 22:05: Injection, Denis 00 IV, Once, first dose 12/30/15 16:05:00 CAD CAM PROGRAMMER, stop date 12/30/15 16:05:00 CAD CAM PROGRAMMER midazolam 2016-0 No [place] 0.5 mg = Me moria 3-10 Wheat 0.5 mL, l 22:05: Injection, Denis 00 IV, Once, first dose 12/30/15 16:05:00 CAD CAM PROGRAMMER, stop date 12/30/15 16:05:00 CAD CAM PROGRAMMER fenta[facility]L 2016-0 No [place] 25 mcg = Mem oria 3-10 Wheat 0.5 mL, l 22:05: Injection, Denis 00 IV, Once, first dose 12/30/15 16:05:00 CAD CAM PROGRAMMER, stop date 12/30/15 16:05:00 CAD CAM PROGRAMMER midazolam 2016-0 No [place] 0.5 mg = Me moria 3-10 Wheat 0.5 mL, l 22:05: Injection, Denis 00 IV, Once, first dose 12/30/15 16:05:00 CAD CAM PROGRAMMER, stop date 12/30/15 16:05:00 CAD CAM PROGRAMMER fentaNYL 2016-0 No [place] 25 mcg = Mem oria 3-10 Wheat 0.5 mL, l 22:05: Injection, Denis 00 IV, Once, first dose 12/30/15 16:05:00 CAD CAM PROGRAMMER, stop date 12/30/15 16:05:00 CAD CAM PROGRAMMER midazolam 2016-0 No [place] 0.5 mg = Me moria 3-10 Wheat 0.5 mL, l 22:05: Injection, Denis 00 IV, Once, first dose 12/30/15 16:05:00 CAD CAM PROGRAMMER, stop date 12/30/15 16:05:00 CAD CAM PROGRAMMER fentaNYL 2016-0 No [place]ico 25 mcg = Mem oria 3-10 Wheat 0.5 mL, l 22:05: Injection, [place] 00 IV, Once, first dose 12/30/15 16:05:00 CAD CAM PROGRAMMER, stop date 12/30/15 16:05:00 CAD CAM PROGRAMMER midazolam 2015-0 No [place] 0.5 mg = Me moria 3-10 Wheat 0.5 mL, l 22:05: Injection, Denis 00 IV, Once, first dose 12/30/15 16:05:00 CAD CAM PROGRAMMER, stop date 12/30/15 16:05:00 CAD CAM PROGRAMMER fentaNYL 2015-0 No [place]ico 25 mcg = Mem oria 3-10 Wheat 0.5 mL, l 22:05: Injection, [place] 00 IV, Once, first dose 12/30/15 16:05:00 CAD CAM PROGRAMMER, stop date 12/30/15 16:05:00 CAD CAM PROGRAMMER midazolam 2015-0 No [place] 0.5 mg = Me moria 3-10 Wheat 0.5 mL, l 22:05: Injection, [place] 00 IV, Once, first dose 12/30/15 16:05:00 CAD CAM PROGRAMMER, stop date 12/30/15 16:05:00 CAD CAM PROGRAMMER fentaNYL 2015-0 No Perico 25 mcg = Mem oria 3-10 Wheat 0.5 mL, l 22:05: Injection, Denis 00 IV, Once, first dose 12/30/15 16:05:00 CAD CAM PROGRAMMER, stop date 12/30/15 16:05:00 CAD CAM PROGRAMMER midazolam 2015-0 No [place] 0.5 mg = Me moria 3-10 Wheat 0.5 mL, l 22:05: Injection, [place] 00 IV, Once, first dose 12/30/15 16:05:00 CAD CAM PROGRAMMER, stop date 12/30/15 16:05:00 CAD CAM PROGRAMMER fentaNYL 2015-0 No Perico 25 mcg = Mem oria 3-10 Wheat 0.5 mL, l 22:05: Injection, [place] 00 IV, Once, first dose 12/30/15 16:05:00 CAD CAM PROGRAMMER, stop date 12/30/15 16:05:00 CAD CAM PROGRAMMER midazolam 2015-0 No [place] 0.5 mg = Me moria 3-10 Wheat 0.5 mL, l 22:05: Injection, Denis 00 IV, Once, first dose 12/30/15 16:05:00 CAD CAM PROGRAMMER, stop date 12/30/15 16:05:00 CAD CAM PROGRAMMER lidocaine 2015-0 No [place] 3 mL, Memor ia 3-10 Wheat Injection, l 21:58: IV, Once, [place] 00 first dose 12/30/15 15:58:00 CAD CAM PROGRAMMER, stop date 12/30/15 15:58:00 CAD CAM PROGRAMMER propofol 2015- No [place] 120 mg = Mem oria 3-10 Wheat 12 mL, l 21:58: Emulsion, [place] 00 IV, Once, first dose 12/30/15 15:58:00 CAD CAM PROGRAMMER, stop date 12/30/15 15:58:00 CAD CAM PROGRAMMER lidocaine 2015- No [place] 3 mL, Memor ia 3-10 Wheat Injection, l 21:58: IV, Once, [place] 00 first dose 12/30/15 15:58:00 CAD CAM PROGRAMMER, stop date 12/30/15 15:58:00 CAD CAM PROGRAMMER propofol 2015- No [place] 120 mg = Mem oria 3-10 Wheat 12 mL, l 21:58: Emulsion, Denis 00 IV, Once, first dose 12/30/15 15:58:00 CAD CAM PROGRAMMER, stop date 12/30/15 15:58:00 CAD CAM PROGRAMMER lidocaine 2015- No [place] 3 mL, Memor ia 3-10 Wheat Injection, l 21:58: IV, Once, Denis 00 first dose 12/30/15 15:58:00 CAD CAM PROGRAMMER, stop date 12/30/15 15:58:00 CAD CAM PROGRAMMER propofol 2015- No [place] 120 mg = Mem oria 3-10 Wheat 12 mL, l 21:58: Emulsion, [place] 00 IV, Once, first dose 12/30/15 15:58:00 CAD CAM PROGRAMMER, stop date 12/30/15 15:58:00 CAD CAM PROGRAMMER lidocaine 2015-0 No Perico 3 mL, Memor ia 3-10 Wheat Injection, l 21:58: IV, Once, Denis 00 first dose 12/30/15 15:58:00 CAD CAM PROGRAMMER, stop date 12/30/15 15:58:00 CAD CAM PROGRAMMER propofol 2015-0 No Perico 120 mg = Mem oria 3-10 Wheat 12 mL, l 21:58: Emulsion, [place] 00 IV, Once, first dose 12/30/15 15:58:00 CAD CAM PROGRAMMER, stop date 12/30/15 15:58:00 CAD CAM PROGRAMMER lidocaine 2016-0 No Perico 3 mL, Memor ia 3-10 Wheat Injection, l 21:58: IV, Once, Denis 00 first dose 12/30/15 15:58:00 CAD CAM PROGRAMMER, stop date 12/30/15 15:58:00 CAD CAM PROGRAMMER propofol No Perico 120 mg = Mem oria 3-10 Wheat 12 mL, l 21:58: Emulsion, Denis 00 IV, Once, first dose 12/30/15 15:58:00 CAD CAM PROGRAMMER, stop date 12/30/15 15:58:00 CAD CAM PROGRAMMER lidocaine No Perico 3 mL, Memor ia 3-10 Wheat Injection, l 21:58: IV, Once, [place] 00 first dose 12/30/15 15:58:00 CAD CAM PROGRAMMER, stop date 12/30/15 15:58:00 [employer] PROGRAMMER propofol No Perico 120 mg = Mem oria 3-10 Wheat 12 mL, l 21:58: Emulsion, Denis 00 IV, Once, first dose 12/30/15 15:58:00 CAD CAM PROGRAMMER, stop date 12/30/15 15:58:00 CAD CAM PROGRAMMER lidocaine No Perico 3 mL, Memor ia 3-10 Wheat Injection, l 21:58: IV, Once, [place] 00 first dose 12/30/15 15:58:00 CAD CAM PROGRAMMER, stop date 12/30/15 15:58:00 [employer] PROGRAMMER propofol No Perico 120 mg = Mem oria 3-10 Wheat 12 mL, l 21:58: Emulsion, Denis 00 IV, Once, first dose 12/30/15 15:58:00 CAD CAM PROGRAMMER, stop date 12/30/15 15:58:00 CAD [employer] PROGRAMMER lidocaine No Perico 3 mL, Memor ia 3-10 Wheat Injection, l 21:58: IV, Once, [place] 00 first dose 12/30/15 15:58:00 CAD CAM PROGRAMMER, stop date 12/30/15 15:58:00 [employer] PROGRAMMER propofol No Perico 120 mg = Mem oria 3-10 Wheat 12 mL, l 21:58: Emulsion, Denis 00 IV, Once, first dose 12/30/15 15:58:00 CAD CAM PROGRAMMER, stop date 12/30/15 15:58:00 CAD CAM PROGRAMMER midazolam No Perico 0.5 mg = Me moria 3-10 Wheat 0.5 mL, l 21:50: Injection, Denis 00 IV, Once, first dose 12/30/15 15:50:00 CAD CAM PROGRAMMER, stop date 12/30/15 15:50:00 CAD CAM PROGRAMMER [email or web address] 2015- No Perico 25 mcg = Mem oria 3-10 Wheat 0.5 mL, l 21:50: Injection, [place] 00 IV, Once, first dose 12/30/15 15:50:00 CAD CAM PROGRAMMER, stop date 12/30/15 15:50:00 [employer] PROGRAMMER midazolam No Perico 0.5 mg = Me moria 3-10 Wheat 0.5 mL, l 21:50: Injection, [place] 00 IV, Once, first dose 12/30/15 15:50:00 CAD CAM PROGRAMMER, stop date 12/30/15 15:50:00 CAD CAM PROGRAMMER [email or web address] No Perico 25 mcg = Mem oria 3-10 Wheat 0.5 mL, l 21:50: Injection, [place] 00 IV, Once, first dose 12/30/15 15:50:00 CAD CAM PROGRAMMER, stop date 12/30/15 15:50:00 [employer] PROGRAMMER midazolam No Perico 0.5 mg = Me moria 3-10 Wheat 0.5 mL, l 21:50: Injection, [place] 00 IV, Once, first dose 12/30/15 15:50:00 CAD CAM PROGRAMMER, stop date 12/30/15 15:50:00 CAD CAM PROGRAMMER [email or web address] No Perico 25 mcg = Mem oria 3-10 Wheat 0.5 mL, l 21:50: Injection, [place] 00 IV, Once, first dose 12/30/15 15:50:00 CAD CAM PROGRAMMER, stop date 12/30/15 15:50:00 CAD CAM PROGRAMMER midazolam No Perico 0.5 mg = Me moria 3-10 Wheat 0.5 mL, l 21:50: Injection, [place] 00 IV, Once, first dose 12/30/15 15:50:00 CAD CAM PROGRAMMER, stop date 12/30/15 15:50:00 CAD CAM PROGRAMMER fentaNYL 2015- No Perico 25 mcg = Mem oria 3-10 Wheat 0.5 mL, l 21:50: Injection, [place] 00 IV, Once, first dose 12/30/15 15:50:00 CAD CAM PROGRAMMER, stop date 12/30/15 15:50:00 CAD CAM PROGRAMMER midazolam 0 No Perico 0.5 mg = Me moria 3-10 Wheat 0.5 mL, l 21:50: Injection, [place] 00 IV, Once, first dose 12/30/15 15:50:00 CAD CAM PROGRAMMER, stop date 12/30/15 15:50:00 CAD CAM PROGRAMMER fentaNYL 2015- No Perico 25 mcg = Mem oria 3-10 Wheat 0.5 mL, l 21:50: Injection, [place] 00 IV, Once, first dose 12/30/15 15:50:00 CAD CAM PROGRAMMER, stop date 12/30/15 15:50:00 CAD CAM PROGRAMMER midazolam 2015- No Perico 0.5 mg = Me moria 3-10 Wheat 0.5 mL, l 21:50: Injection, [place] 00 IV, Once, first dose 12/30/15 15:50:00 CAD CAM PROGRAMMER, stop date 12/30/15 15:50:00 CAD CAM PROGRAMMER fentaNYL 2015- No Perico 25 mcg = Mem oria 3-10 Wheat 0.5 mL, l 21:50: Injection, [place] 00 IV, Once, first dose 12/30/15 15:50:00 CAD CAM PROGRAMMER, stop date 12/30/15 15:50:00 CAD CAM PROGRAMMER midazolam No Perico 0.5 mg = Me moria 3-10 Wheat 0.5 mL, l 21:50: Injection, [place] 00 IV, Once, first dose 12/30/15 15:50:00 CAD CAM PROGRAMMER, stop date 12/30/15 15:50:00 CAD CAM PROGRAMMER fentaNYL No Perico 25 mcg = Mem oria 3-10 Wheat 0.5 mL, l 21:50: Injection, [place] 00 IV, Once, first dose 12/30/15 15:50:00 CAD CAM PROGRAMMER, stop date 12/30/15 15:50:00 CAD CAM PROGRAMMER midazolam No Perico 0.5 mg = Me moria 3-10 Wheat 0.5 mL, l 21:50: Injection, [place] 00 IV, Once, first dose 12/30/15 15:50:00 CAD CAM PROGRAMMER, stop date 12/30/15 15:50:00 CAD CAM PROGRAMMER fentaNYL No Perico 25 mcg = Mem oria 3-10 Wheat 0.5 mL, l 21:50: Injection, [place] 00 IV, Once, first dose 12/30/15 15:50:00 CAD CAM PROGRAMMER, stop date 12/30/15 15:50:00 CAD CAM PROGRAMMER midazolam 2016-0 No Perico 0.5 mg = Me moria 3-10 Wheat 0.5 mL, l 21:10: Injection, [place] 00 IV, Once, first dose 12/30/15 15:10:00 CAD CAM PROGRAMMER, stop date 12/30/15 15:10:00 CAD CAM PROGRAMMER fentaNYL 2016-0 No Perico 25 mcg = Mem oria 3-10 Wheat 0.5 mL, l 21:10: Injection, [place] 00 IV, Once, first dose 12/30/15 15:10:00 CAD CAM PROGRAMMER, stop date 12/30/15 15:10:00 CAD CAM PROGRAMMER midazolam 2015-0 No Perico 0.5 mg = Me moria 3-10 Wheat 0.5 mL, l 21:10: Injection, [place] 00 IV, Once, first dose 12/30/15 15:10:00 CAD CAM PROGRAMMER, stop date 12/30/15 15:10:00 CAD CAM PROGRAMMER fentaNYL 2016-0 No Perico 25 mcg = Mem oria 3-10 Wheat 0.5 mL, l 21:10: Injection, [place] 00 IV, Once, first dose 12/30/15 15:10:00 CAD CAM PROGRAMMER, stop date 12/30/15 15:10:00 CAD CAM PROGRAMMER midazolam 2016-0 No Perico 0.5 mg = Me moria 3-10 Wheat 0.5 mL, l 21:10: Injection, [place] 00 IV, Once, first dose 12/30/15 15:10:00 CAD CAM PROGRAMMER, stop date 12/30/15 15:10:00 CAD CAM PROGRAMMER fentaNYL 2016-0 No Perico 25 mcg = Mem oria 3-10 Wheat 0.5 mL, l 21:10: Injection, [place] 00 IV, Once, first dose 12/30/15 15:10:00 CAD CAM PROGRAMMER, stop date 12/30/15 15:10:00 CAD CAM PROGRAMMER midazolam 2015-0 No Perico 0.5 mg = Me moria 3-10 Wheat 0.5 mL, l 21:10: Injection, [place] 00 IV, Once, first dose 12/30/15 15:10:00 CAD CAM PROGRAMMER, stop date 12/30/15 15:10:00 CAD CAM PROGRAMMER fentaNYL 2016-0 No Perico 25 mcg = Mem oria 3-10 Wheat 0.5 mL, l 21:10: Injection, [place] 00 IV, Once, first dose 12/30/15 15:10:00 CAD CAM PROGRAMMER, stop date 12/30/15 15:10:00 CAD CAM PROGRAMMER midazolam 2016-0 No Perico 0.5 mg = Me moria 3-10 Wheat 0.5 mL, l 21:10: Injection, [place] 00 IV, Once, first dose 12/30/15 15:10:00 CAD CAM PROGRAMMER, stop date 12/30/15 15:10:00 CAD CAM PROGRAMMER fentaNYL 2016-0 No Perico 25 mcg = Mem oria 3-10 Wheat 0.5 mL, l 21:10: Injection, [place] 00 IV, Once, first dose 12/30/15 15:10:00 CAD CAM PROGRAMMER, stop date 12/30/15 15:10:00 CAD CAM PROGRAMMER midazolam 2016-0 No Perico 0.5 mg = Me moria 3-10 Wheat 0.5 mL, l 21:10: Injection, [place] 00 IV, Once, first dose 12/30/15 15:10:00 CAD CAM PROGRAMMER, stop date 12/30/15 15:10:00 CAD CAM PROGRAMMER fentaNYL 2016-0 No Perico 25 mcg = Mem oria 3-10 Wheat 0.5 mL, l 21:10: Injection, [place] 00 IV, Once, first dose 12/30/15 15:10:00 CAD CAM PROGRAMMER, stop date 12/30/15 15:10:00 CAD CAM PROGRAMMER midazolam 2016-0 No Perico 0.5 mg = Me moria 3-10 Wheat 0.5 mL, l 21:10: Injection, [place] 00 IV, Once, first dose 12/30/15 15:10:00 CAD CAM PROGRAMMER, stop date 12/30/15 15:10:00 CAD CAM PROGRAMMER fentaNYL 2016-0 No Perico 25 mcg = Mem oria 3-10 Wheat 0.5 mL, l 21:10: Injection, [place] 00 IV, Once, first dose 12/30/15 15:10:00 CAD CAM PROGRAMMER, stop date 12/30/15 15:10:00 CAD CAM PROGRAMMER midazolam 2016-0 No Perico 0.5 mg = Me moria 3-10 Wheat 0.5 mL, l 21:10: Injection, [place] 00 IV, Once, first dose 12/30/15 15:10:00 CAD CAM PROGRAMMER, stop date 12/30/15 15:10:00 CAD CAM PROGRAMMER fentaNYL 2016-0 No Perico 25 mcg = Mem oria 3-10 Wheat 0.5 mL, l 21:10: Injection, [place] 00 IV, Once, first dose 12/30/15 15:10:00 CAD CAM PROGRAMMER, stop date 12/30/15 15:10:00 CAD CAM PROGRAMMER fentaNYL 2015-0 No Perico 25 mcg = Mem oria 3-10 Wheat 0.5 mL, l 21:05: Injection, [place] 00 IV, Once, first dose 12/30/15 15:05:00 CAD CAM PROGRAMMER, stop date 12/30/15 15:05:00 CAD CAM PROGRAMMER midazolam 2015-0 No Perico 0.5 mg = Me moria 3-10 Wheat 0.5 mL, l 21:05: Injection, [place] 00 IV, Once, first dose 12/30/15 15:05:00 CAD CAM PROGRAMMER, stop date 12/30/15 15:05:00 CAD CAM PROGRAMMER fentaNYL 2015-0 No Perico 25 mcg = Mem oria 3-10 Wheat 0.5 mL, l 21:05: Injection, [place] 00 IV, Once, first dose 12/30/15 15:05:00 CAD CAM PROGRAMMER, stop date 12/30/15 15:05:00 CAD CAM PROGRAMMER midazolam 2015-0 No Perico 0.5 mg = Me moria 3-10 Wheat 0.5 mL, l 21:05: Injection, [place] 00 IV, Once, first dose 12/30/15 15:05:00 CAD CAM PROGRAMMER, stop date 12/30/15 15:05:00 CAD CAM PROGRAMMER fentaNYL 2015-0 No Perico 25 mcg = Mem oria 3-10 Wheat 0.5 mL, l 21:05: Injection, [place] 00 IV, Once, first dose 12/30/15 15:05:00 CAD CAM PROGRAMMER, stop date 12/30/15 15:05:00 CAD CAM PROGRAMMER midazolam 2015-0 No Perico 0.5 mg = Me moria 3-10 Wheat 0.5 mL, l 21:05: Injection, [place] 00 IV, Once, first dose 12/30/15 15:05:00 CAD CAM PROGRAMMER, stop date 12/30/15 15:05:00 CAD CAM PROGRAMMER fentaNYL 2015-0 No Perico 25 mcg = Mem oria 3-10 Wheat 0.5 mL, l 21:05: Injection, [place] 00 IV, Once, first dose 12/30/15 15:05:00 CAD CAM PROGRAMMER, stop date 12/30/15 15:05:00 CAD CAM PROGRAMMER midazolam 2016-0 No Perico 0.5 mg = Me moria 3-10 Wheat 0.5 mL, l 21:05: Injection, [place] 00 IV, Once, first dose 12/30/15 15:05:00 CAD CAM PROGRAMMER, stop date 12/30/15 15:05:00 CAD CAM PROGRAMMER fentaNYL 2016-0 No Perico 25 mcg = Mem oria 3-10 Wheat 0.5 mL, l 21:05: Injection, [place] 00 IV, Once, first dose 12/30/15 15:05:00 CAD CAM PROGRAMMER, stop date 12/30/15 15:05:00 CAD CAM PROGRAMMER midazolam 2016-0 No Perico 0.5 mg = Me moria 3-10 Wheat 0.5 mL, l 21:05: Injection, [place] 00 IV, Once, first dose 12/30/15 15:05:00 CAD CAM PROGRAMMER, stop date 12/30/15 15:05:00 CAD CAM PROGRAMMER fentaNYL 2016-0 No Perico 25 mcg = Mem oria 3-10 Wheat 0.5 mL, l 21:05: Injection, [place] 00 IV, Once, first dose 12/30/15 15:05:00 CAD CAM PROGRAMMER, stop date 12/30/15 15:05:00 CAD CAM PROGRAMMER midazolam 2016-0 No Perico 0.5 mg = Me moria 3-10 Wheat 0.5 mL, l 21:05: Injection, [place] 00 IV, Once, first dose 12/30/15 15:05:00 CAD CAM PROGRAMMER, stop date 12/30/15 15:05:00 CAD CAM PROGRAMMER fentaNYL 2015-0 No Perico 25 mcg = Mem oria 3-10 Wheat 0.5 mL, l 21:05: Injection, [place] 00 IV, Once, first dose 12/30/15 15:05:00 CAD CAM PROGRAMMER, stop date 12/30/15 15:05:00 CAD CAM PROGRAMMER midazolam 2015-0 No Perico 0.5 mg = Me moria 3-10 Wheat 0.5 mL, l 21:05: Injection, [place] 00 IV, Once, first dose 12/30/15 15:05:00 CAD CAM PROGRAMMER, stop date 12/30/15 15:05:00 CAD CAM PROGRAMMER fentaNYL 2016-0 No Perico 25 mcg = Mem oria 3-10 Wheat 0.5 mL, l 21:05: Injection, [place] 00 IV, Once, first dose 12/30/15 15:05:00 CAD CAM PROGRAMMER, stop date 12/30/15 15:05:00 CAD CAM PROGRAMMER midazolam 2016-0 No Perico 0.5 mg = Me moria 3-10 Wheat 0.5 mL, l 21:05: Injection, [place] 00 IV, Once, first dose 12/30/15 15:05:00 CAD CAM PROGRAMMER, stop date 12/30/15 15:05:00 CAD CAM PROGRAMMER clindamycin 2016-0 No Jose Francisco 900 mg, IV Memoria 3-10 Johnson Piggyback, l 20:00: Once, [place] 00 infuse over 30 minutes, first dose 12/30/15 14:00:00 CAD CAM PROGRAMMER, stop date 12/30/15 14:00:00 CAD CAM PROGRAMMER, Prophylaxi s clindamycin 2015-0 No Jose Francisco 900 mg, IV Memoria 3-10 Johnson Piggyback, l 20:00: Once, [place] 00 infuse over 30 minutes, first dose 12/30/15 14:00:00 CAD CAM PROGRAMMER, stop date 12/30/15 14:00:00 CAD CAM PROGRAMMER, Prophylaxi s clindamycin 2015-0 No Jose Francisco 900 mg, IV Memoria 3-10 Johnson Piggyback, l 20:00: Once, [place] 00 infuse over 30 minutes, first dose 12/30/15 14:00:00 CAD CAM PROGRAMMER, stop date 12/30/15 14:00:00 CAD CAM PROGRAMMER, Prophylaxi s clindamycin 2015-0 No Jose Francisco 900 mg, IV Memoria 3-10 Johnson Piggyback, l 20:00: Once, [place] 00 infuse over 30 minutes, first dose 12/30/15 14:00:00 CAD CAM PROGRAMMER, stop date 12/30/15 14:00:00 CAD CAM PROGRAMMER, Prophylaxi s clindamycin 2015-0 No Jose Francisco 900 mg, IV Memoria 3-10 Johnson Piggyback, l 20:00: Once, [place] 00 infuse over 30 minutes, first dose 12/30/15 14:00:00 CAD CAM PROGRAMMER, stop date 12/30/15 14:00:00 CAD CAM PROGRAMMER, Prophylaxi s clindamycin 2015-0 No Jose Francisco 900 mg, IV Memoria 3-10 Johnson Piggyback, l 20:00: Once, [place] 00 infuse over 30 minutes, first dose 12/30/15 14:00:00 CAD CAM PROGRAMMER, stop date 12/30/15 14:00:00 CAD CAM PROGRAMMER, Prophylaxi s clindamycin No Jose Francisco 900 mg, IV Memoria 3-10 Johnson Piggyback, l 20:00: Once, [place] 00 infuse over 30 minutes, first dose 12/30/15 14:00:00 CAD CAM PROGRAMMER, stop date 12/30/15 14:00:00 CAD CAM PROGRAMMER, Prophylaxi s clindamycin No Jose Francisco 900 mg, IV Memoria 3-10 Johnson Piggyback, l 20:00: Once, [place] 00 infuse over 30 minutes, first dose 12/30/15 14:00:00 CAD CAM PROGRAMMER, stop date 12/30/15 14:00:00 CAD CAM PROGRAMMER, Prophylaxi s LR 1,000 mL No Kyle K 1,000 mL, Memoria 3-10 Silvestre IV, 30 l 19:27: mL/hr, [place] 00 start date 12/30/15 13:27:00 CAD CAM PROGRAMMER Lidocaine No Kyle K 0.2 mL, Mem oria 2% 0.2 mL 3-10 Silvestre Injection, l IV Start 19:27: [facility] us, Once PRN for other (see comment), first dose 12/30/15 13:27:00 CAD CAM PROGRAMMER LR 1,000 mL No Kyle K 1,000 mL, Memoria 3-10 Silvestre IV, 30 l 19:27: mL/hr, [place] 00 start date 12/30/15 13:27:00 CAD CAM PROGRAMMER Lidocaine No Kyle K 0.2 mL, Mem oria 2% 0.2 mL 3-10 Silvestre Injection, l IV Start 19:27: [facility]cut[facility] [[place]] 00 us, Once PRN for other (see comment), first dose 12/30/15 13:27:00 CAD CAM PROGRAMMER LR 1,000 mL No Kyle K 1,000 mL, Memoria 3-10 Silvestre IV, 30 l 19:27: mL/hr, [place] 00 start date 12/30/15 13:27:00 CAD CAM PROGRAMMER Lidocaine No Kyle K 0.2 mL, Mem oria 2% 0.2 mL 3-10 Silvestre Injection, l IV Start 19:27: [facility] 00 us, Once PRN for other (see comment), first dose 12/30/15 13:27:00 CAD CAM PROGRAMMER LR 1,000 mL No Kyle K 1,000 mL, Memoria 3-10 Silvestre IV, 30 l 19:27: mL/hr, [place] 00 start date 12/30/15 13:27:00 CAD CAM PROGRAMMER Lidocaine No Kyle K 0.2 mL, Mem oria 2% 0.2 mL 3-10 Silvestre Injection, l IV Start 19:27: [facility] 00 us, Once PRN for other (see comment), first dose 12/30/15 13:27:00 CAD CAM PROGRAMMER LR 1,000 mL No Kyle K 1,000 mL, Memoria 3-10 Silvestre IV, 30 l 19:27: mL/hr, start date 12/30/15 13:27:00 CAD CAM PROGRAMMER Lidocaine No Kyle K 0.2 mL, Mem oria 2% 0.2 mL 3-10 Silvestre Injection, l IV Start 19:27: [facility] [[facility]] 00 us, Once PRN for other (see comment), first dose 12/30/15 13:27:00 CAD CAM PROGRAMMER LR 1,000 mL No Kyle K 1,000 mL, Memoria 3-10 Silvestre IV, 30 l 19:27: mL/hr, start date 12/30/15 13:27:00 CAD CAM PROGRAMMER Lidocaine No Kyle K 0.2 mL, Mem oria 2% 0.2 mL 3-10 Silvestre Injection, l IV Start 19:27: [facility] 00 us, Once PRN for other (see comment), first dose 12/30/15 13:27:00 CAD CAM PROGRAMMER LR 1,000 mL No Kyle K 1,000 mL, Memoria 3-10 Silvestre IV, 30 l 19:27: mL/hr, Denis start date 12/30/15 13:27:00 CAD CAM PROGRAMMER Lidocaine No Kyle K 0.2 mL, Mem oria 2% 0.2 mL 3-10 Silvestre Injection, l IV Start 19:27: [facility]cut[facility] [[place]] 00 us, Once PRN for other (see comment), first dose 12/30/15 13:27:00 CAD CAM PROGRAMMER LR 1,000 mL No Kyle K 1,000 mL, Memoria 3 Silvestre IV, 30 l 19:27: mL/hr, Denis 00 start date 12/30/15 13:27:00 CAD CAM PROGRAMMER Lidocaine No Kyle K 0.2 mL, Mem oria 2% 0.2 mL 12-29 Silvestre Injection, l IV Start 19:27: [place] [facility] [place] [[place]] 00 us, Once PRN for other (see comment), first dose 12/30/15 13:27:00 CAD CAM PROGRAMMER Seroquel Yes 100 mg, Memori a 3 Oral, l 14:40: Daily, 0 [place] 00 Refill(s), migraines acetaminoph Yes 1 tabs, Mem oria en-HYDROcod 12-28 Oral, l one 325 14:40: q6hr, 0 [place] mg-5 mg 00 Refill(s), oral tablet pain traMADol 50 Yes 50 mg = 1 M emoria mg oral - tabs, l tablet 14:40: Oral, [place] 00 q4hr, 0 Refill(s), pain amLODIPine- Yes [...] oral -09 tabs, l tablet 14:40: Oral, [place] 00 Daily, 0 Refill(s), supplement Axert 12.5 Yes 12.5 mg = Me moria mg oral 12-28 1 tabs, l tablet 14:40: Oral, [place] 00 Once, PRN for migraine headache, may [...] acetaminoph Yes 1 tabs, Mem oria en-HYDROcod 3 Oral, l one 325 14:40: q6hr, 0 [place] mg-5 mg 00 Refill(s), oral tablet pain traMADol 50 Yes 50 mg = 1 M emoria mg oral - tabs, l tablet 14:40: Oral, [place] 00 q4hr, 0 Refill(s), pain amLODIPine- Yes [...] oral 12-28 tabs, l tablet 14:40: Oral, [place] 00 Daily, 0 Refill(s), supplement Axert 12.5 [...] a 3- Oral, l 14:40: Daily, 0 [place] 00 Refill(s), migraines acetaminoph Yes 1 tabs, Mem oria en-HYDROcod 3-09 Oral, l one 325 14:40: q6hr, 0 Denis mg-5 mg 00 Refill(s), oral tablet pain traMADol 50 Yes 50 mg = 1 M emoria mg oral 3-09 tabs, l tablet 14:40: Oral, [place] 00 q4hr, 0 Refill(s), pain amLODIPine- Yes 1 tabs, Mem oria atorvastati 3- Oral, qHS, l n 5 mg-40 14:40: 0 Denis mg oral 00 Refill(s), tablet cholestero l/hyperten will Osteo Yes Oral, Memoria Bi-Flex 3- Daily, 0 l 14:40: Refill(s), [place] 00 supplement Nature's Yes 1,000 mg = Mem oria Bounty Red 12-28 2 caps, l Krill Oil 14:40: Oral, BID, He rmann 500 mg oral 00 0 capsule Refill(s), supplement aspirin 81 Yes 81 mg = 1 Me moria mg oral - tabs, l tablet 14:40: Oral, [place] 00 Daily, 0 Refill(s), supplement Axert 12.5 Yes 12.5 mg = Me moria mg oral 12-28 1 tabs, l tablet 14:40: Oral, [place] 00 Once, PRN for migraine headache, may repeat dose once in 2 hours, # 6 tabs, 0 Refill(s), migrainesm ay repeat dose once in 2 hours Wellbutrin Yes 300 mg, Turner arnoldo XL 3- Oral, l 14:40: q24hr, 0 [place] 00 Refill(s), migraines Seroquel Yes 100 mg, Memori a 3- Oral, l 14:40: Daily, 0 [place] 00 Refill(s), migraines acetaminoph Yes 1 tabs, Mem oria en-HYDROcod - Oral, l one 325 14:40: q6hr, 0 Denis mg-5 mg 00 Refill(s), oral tablet pain traMADol 50 Yes 50 mg = 1 M emoria mg oral 3-09 tabs, l tablet 14:40: Oral, [place] 00 q4hr, 0 Refill(s), pain amLODIPine- Yes [...] oral 12-28 tabs, l tablet 14:40: Oral, [place] 00 Daily, 0 Refill(s), supplement Axert 12.5 Yes 12.5 mg = Me moria mg oral 12-28 1 tabs, l tablet 14:40: Oral, [place] 00 Once, PRN for migraine headache, may repeat dose once in 2 hours, # 6 tabs, 0 Refill(s), migrainesm ay repeat dose once in 2 hours Wellbutrin Yes 300 mg, Turner arnoldo XL -09 Oral, l 14:40: q24hr, 0 [place] 00 Refill(s), migraines Seroquel Yes 100 mg, Memori a 3-09 Oral, l 14:40: Daily, 0 [place] 00 Refill(s), migraines acetaminoph Yes 1 tabs, [...] 00 Refill(s), tablet cholestero l/hyperten will Osteo 2016- Yes Oral, Memoria Bi-Flex 3-09 Daily, 0 l 14:40: Refill(s), Denis 00 supplement Nature's Yes 1,000 mg = Mem oria Bounty Red 12-28 2 caps, l Krill Oil 14:40: Oral, BID, He rmann 500 mg oral 00 0 capsule Refill(s), supplement aspirin 81 Yes 81 mg = 1 Me moria mg oral 12-28 tabs, l tablet 14:40: Oral, [place] 00 Daily, 0 Refill(s), supplement Axert 12.5 Yes 12.5 mg = Me moria mg oral 12-28 1 tabs, l tablet 14:40: Oral, [place] 00 Once, PRN for migraine headache, may repeat dose once in 2 hours, # 6 tabs, 0 Refill(s), migrainesm ay repeat dose once in 2 hours Wellbutrin Yes 300 mg, Turner arnoldo XL - Oral, l 14:40: q24hr, 0 [place] 00 Refill(s), migraines Seroquel Yes 100 mg, Memori a - Oral, l 14:40: Daily, 0 [place] 00 Refill(s), migraines acetaminoph Yes 1 tabs, Mem oria en-HYDROcod -09 Oral, l one 325 14:40: q6hr, 0 [place] mg-5 mg 00 Refill(s), oral tablet pain [...] 0 l 14:40: Refill(s), Denis 00 supplement [employer]'s Yes 1,000 mg = Mem oria Bounty [...] 12-28 1 tabs, l tablet 14:40: Oral, [place] 00 Once, PRN for migraine headache, may repeat dose once in 2 hours, # 6 tabs, 0 Refill(s), migrainesm ay repeat dose once in 2 hours Wellbutrin Yes 300 mg, Turner arnoldo XL - Oral, l 14:40: q24hr, 0 Denis 00 Refill(s), migraines Seroquel Yes 100 mg, Memori a 3- Oral, l 14:40: Daily, 0 [place] 00 Refill(s), migraines acetaminoph Yes 1 tabs, Mem oria en-HYDROcod 3-09 Oral, l one 325 14:40: q6hr, 0 [place] mg-5 mg 00 Refill(s), oral tablet pain traMADol 50 Yes 50 mg = 1 M emoria mg oral 3-09 tabs, l tablet 14:40: Oral, [place] 00 q4hr, 0 Refill(s), pain amLODIPine- Yes 1 tabs, Mem oria atorvastati 3-09 Oral, qHS, l n 5 mg-40 14:40: 0 [place] mg oral 00 Refill(s), tablet cholestero l/hyperten will Osteo Yes Oral, Memoria Bi-Flex 3-09 Daily, 0 l 14:40: Refill(s), [place] 00 supplement [employer]'s Yes 1,000 mg = Mem oria Bounty Red 12-28 2 caps, l Krill Oil 14:40: Oral, BID, He rmann 500 mg oral 00 0 capsule Refill(s), supplement aspirin 81 Yes 81 mg = 1 Me moria mg oral 3-09 tabs, l tablet 14:40: Oral, [place] 00 Daily, 0 Refill(s), supplement Axert 12.5 Yes 12.5 mg = Me moria mg oral 12-28 1 tabs, l tablet 14:40: Oral, [place] 00 Once, PRN for migraine headache, may repeat dose once in 2 hours, # 6 tabs, 0 Refill(s), migrainesm ay repeat dose once in 2 hours Wellbutrin Yes 300 mg, Turner arnoldo XL - Oral, l 14:40: q24hr, 0 [place] 00 Refill(s), migraines Seroquel Yes 100 mg, Memori a - Oral, l 14:40: Daily, 0 [place] 00 Refill(s), migraines acetaminoph Yes 1 tabs, Mem oria en-HYDROcod - Oral, l one 325 14:40: q6hr, 0 [place] mg-5 mg 00 Refill(s), oral tablet pain [...] 12-28 1 tabs, l tablet 14:40: Oral, [place] 00 Once, PRN for migraine headache, may repeat dose once in 2 hours, # 6 tabs, 0 Refill(s), migrainesm ay repeat dose once in 2 hours Wellbutrin Yes 300 mg, Turner arnoldo XL 12-28 Oral, l 14:40: q24hr, 0 [place] 00 Refill(s), migraines Immunizations Ordered Immunization Filled Immunization Date Status Commen ts Source Name Name FLUCELVAX QUAD 2022-06-[address] 00:00:00 [facility] FLUCELVAX QUAD 2022-06-[address] [facility]00 [facility] 00:00:00 [facility] FLUCELVAX QUAD 2021-07-[address] 00:00:00 [facility] FLUCELVAX QUAD 2021-07-[address] 00:00:00 [facility] FLUCELVAX QUAD 2020-09-[address] 00:00:00 [facility] FLUCELVAX QUAD 2020-09-[address] 00:00:00 [facility] Hx influenza 2019-08-13 [facility]pleted [facility] Tdap 2019-06-28 Completed [facility] 00:00:00 Hospital Tdap 2019-06-28 Completed [facility] 00:00:00 Hospital pneumococcal 2019-05-14 Completed [facility] [...] kg Systolic blood 2022-09-27 08:05:00 133 mm[Hg] [facility] Diastolic blood 2022-09-27 08:05:00 87 mm[Hg] [facility] Heart rate 2022-09-27 08:05:00 104 /min [facility] Body temperature 2022-09-27 08:05:00 35.56 [facility] Respiratory rate 2022-09-27 08:05:00 20 /min [facility] Oxygen saturation in 2022-09-27 08:05:00 98 /min [facility] Arterial blood by [facility] Pulse oximetry Body weight 2022-09-25 11:28:00 98.2 kg [facility] BMI 2022-09-25 11:28:00 33.91 kg/m2 [facility] Body height 2022-09-23 16:00:00 170.2 cm [facility] Body height 2022-09-08 16:22:00 170.2 cm [facility] Body weight 2022-09-08 16:22:00 97.523 kg [facility] BMI 2022-09-08 16:22:00 33.67 kg/m2 [facility] Systolic blood 2022-08-27 21:24:34 114 mm[Hg] [facility] pressure Diastolic blood 2022-08-27 21:24:34 57 mm[Hg] [facility] pressure Heart rate 2022-08-27 21:24:34 87 /min [facility] Body temperature 2022-08-27 21:24:34 36.61 [facility] Respiratory rate 2022-08-27 21:24:34 18 /min [facility] Oxygen saturation in 2022-08-27 21:24:34 100 /min [facility] Arterial blood by Pulse oximetry Body height 2022-08-27 05:00:00 170.2 cm [facility] Body weight 2022-08-27 05:00:00 107.2 kg [facility] BMI 2022-08-27 05:00:00 37.02 kg/m2 [facility] Temperature Oral (F) 2022-04-19 19:52:00 97.6 F [facility] Height 2022-04-19 19:52:00 170.18 cm [facility] Weight 2022-04-19 19:52:00 [facility] BMI Calculated 2022-04-19 19:52:00 Memori al [place] Heart Rate 2021-10-17 21:23:00 [facility] [place] Systolic (mm Hg) 2021-10-17 21:23:00 Turner rial Denis Diastolic (mm Hg) 2021-10-17 21:23:00 Mem orial [place] Height 2021-10-17 21:23:00 165.1 cm [facility] Weight 2021-10-17 21:23:00 [facility] [place] BMI Calculated 2021-10-17 21:23:00 [facility] [place] Heart Rate 2021-09-09 20:12:00 [facility] Heart Rate 2021-09-09 20:08:00 [facility] [place] Systolic (mm Hg) 2021-09-09 20:08:00 Turner rial Denis Diastolic (mm Hg) 2021-09-09 20:08:00 Mem orial [place] Height 2021-09-09 20:08:00 165.1 cm [facility] Weight 2021-09-09 20:08:00 [facility] BMI Calculated 2021-09-09 20:08:00 [facility] Systolic (mm Hg) 2020-09-15 15:59:00 [facility] Diastolic (mm Hg) 2020-09-15 15:59:00 [facility] Heart Rate 2020-09-15 15:59:00 [facility] [place] Height 2020-09-15 15:59:00 165.1 cm [facility] Weight 2020-09-15 15:59:00 [facility] [place] BMI Calculated 2020-09-15 15:59:00 [facility] Systolic (mm Hg) 2019-12-16 20:42:00 [facility] [place] Diastolic (mm Hg) 2019-12-16 20:42:00 [facility] Heart Rate 2019-12-16 20:42:00 [facility] [place] Temperature Oral (F) 2019-12-16 20:42:00 98.2 F [facility] Height 2019-12-16 20:42:00 170.18 cm [facility] Weight 2019-12-16 20:42:00 [facility] BMI Calculated 2019-12-16 20:42:00 [facility] Systolic (mm Hg) 2019-10-02 21:53:00 [facility] [place] Diastolic (mm Hg) 2019-10-02 21:53:00 [facility] [place] Heart Rate 2019-10-02 21:53:00 [facility] [place] Temperature Oral (F) 2019-10-02 21:53:00 97.9 F [facility] Height 2019-10-02 21:53:00 165.1 cm [facility] [place] Weight 2019-10-02 21:53:00 [facility] BMI Calculated 2019-10-02 21:53:00 [facility] [place] Height 2019-08-15 14:54:00 165.1 cm [facility] Weight 2019-08-15 14:54:00 [facility] BMI Calculated 2019-08-15 14:54:00 [facility] [place] Systolic (mm Hg) 2019-08-15 14:54:00 Turner [place] Diastolic (mm Hg) 2019-08-15 14:54:00 [facility] [place] Heart Rate 2019-08-15 14:54:00 [facility] Temperature Oral (F) 2019-08-15 14:54:00 97.6 F [facility] [place] Systolic (mm Hg) 2019-07-31 15:37:00 Turner rial [place] Diastolic (mm Hg) 2019-07-31 15:37:00 Mem [facility] [place] Heart Rate 2019-07-31 15:37:00 [facility] [place] Temperature Oral (F) 2019-07-31 15:37:00 98.2 F [facility] [place] Height 2019-07-31 15:37:00 165.1 cm [facility] Weight 2019-07-31 15:37:00 [facility] BMI Calculated 2019-07-31 15:37:00 [facility] [place] Weight 2019-03-27 15:18:00 [facility] [place] BMI Calculated 2019-03-27 15:18:00 [facility] [place] Height 2019-03-27 15:18:00 165.1 cm [facility] Temperature Oral (F) 2019-03-27 15:18:00 98.4 F [facility] Heart Rate 2019-03-27 15:18:00 [facility] Systolic (mm Hg) 2019-03-27 15:18:00 Turner rial [place] Diastolic (mm Hg) 2019-03-27 15:18:00 [facility] [place] Height 2019-01-02 19:16:00 165.1 cm [facility] [place] BMI Calculated 2019-01-02 19:16:00 [facility] [place] Weight 2019-01-02 19:16:00 [facility] Heart Rate 2019-01-02 19:16:00 [facility] [place] Systolic (mm Hg) 2019-01-02 19:16:00 Turner rial Denis Diastolic (mm Hg) 2019-01-02 19:16:00 [facility] [place] Height 2019-01-02 14:26:00 167.01 cm [facility] BMI Calculated 2019-01-02 14:26:00 [facility] [place] Weight 2019-01-02 14:26:00 [facility] [place] Heart Rate 2019-01-02 14:26:00 [facility] Temperature Oral (F) 2019-01-02 14:26:00 97.9 F [facility] Systolic (mm Hg) 2019-01-02 14:26:00 Turner [place] Diastolic (mm Hg) 2019-01-02 14:26:00 Mem orial [place] Systolic (mm Hg) 2018-07-18 18:33:00 Turner rial [place] Diastolic (mm Hg) 2018-07-18 18:33:00 [facility] [place] Heart Rate 2018-07-18 18:33:00 [facility] Weight 2018-07-18 18:33:00 [facility] [place] BMI Calculated 2018-06-11 18:31:00 [facility] [place] Weight 2018-06-11 18:31:00 [facility] Systolic (mm Hg) 2018-06-11 18:31:00 Turner [place] Diastolic (mm Hg) 2018-06-11 18:31:00 Mem orial [facility] Height 2018-06-11 18:31:00 170.18 cm [facility] Temperature Oral (F) 2018-06-11 18:31:00 98.3 F [facility] Heart Rate 2018-06-11 18:31:00 [facility] [place] Weight 2018-01-10 16:14:00 [facility] [place] Height 2018-01-10 16:14:00 170.18 cm [facility] [place] BMI Calculated 2018-01-10 16:14:00 Memori al [facility] Heart Rate 2018-01-10 16:14:00 [facility] Systolic (mm Hg) 2018-01-10 16:14:00 Turner [place] Diastolic (mm Hg) 2018-01-10 16:14:00 [facility] [place] BMI Calculated 2018-01-09 15:06:00 [facility] Height 2018-01-09 15:06:00 170.18 cm [facility] Weight 2018-01-09 15:06:00 [facility] [place] Systolic (mm Hg) 2018-01-09 15:06:00 Turner rial Denis Diastolic (mm Hg) 2018-01-09 15:06:00 Mem orial Denis Heart Rate 2018-01-09 15:06:00 [facility] Temperature Oral (F) 2018-01-09 15:06:00 97.9 F [facility] Weight 2016-11-14 16:17:00 [facility] Height 2016-11-14 16:17:00 170.18 cm [facility] BMI Calculated 2016-11-14 16:17:00 [facility] [place] Respitory Rate 2015-12-31 01:25:00 [facility] [place] Systolic (mm Hg) 2015-12-31 00:50:00 Turner [place] Respitory Rate 2015-12-31 00:50:00 [facility] [place] Heart Rate 2015-12-31 00:50:00 [facility] Systolic (mm Hg) 2015-12-31 00:40:00 Turner [place] Respitory Rate 2015-12-31 00:40:00 [facility] Heart Rate 2015-12-31 00:40:00 [facility] Heart Rate 2015-12-31 00:30:00 [facility] [place] Systolic (mm Hg) 2015-12-31 00:30:00 Turner [place] Temperature Oral (F) 2015-12-30 23:50:00 37.1 Linda [facility] [place] Height 2015-12-30 19:23:00 169 cm [facility] [place] Weight 2015-12-30 19:23:00 [facility] [place] Temperature Oral (F) 2015-12-30 19:23:00 36.6 Linda [facility] [place] Height 2015-12-29 14:13:00 170 cm [facility] [place] Weight 2015-12-29 14:13:00 [facility] Procedures Procedure Date / Time Performing Clinician Source Performed ULTRAFILTRATION HD CRRT 2022-09-26 18:40:00 Vee [facility] ECG 12-LEAD 2022-09-26 10:57:31 [facility] 2022-09-26 10:57:31 Unknown, [facility] NM MYOCARDIAL PERFUSION 2022-09-26 10:55:00 Rober Crobingabriele Arroyo [facility] PET/CT (REST & STRESS) Medical C enter TREADMILL 2022-09-26 10:49:30 Unknown, 7 [facility] TOLERANCE(NON-NUCLEAR Medical Ce nter TREADMILL) ECG 12-LEAD 2022-09-26 10:49:10 Unknown, [facility] ECG 12-LEAD 2022-09-26 10:49:10 Unknown, [facility] CBC W/PLT COUNT & AUTO 2022-09-26 03:40:00 [facility] BASIC METABOLIC PANEL 2022-09-26 03:40:00 [facility] MAGNESIUM 2022-09-26 03:40:00 [facility] PHOSPHORUS 2022-09-26 03:40:00 [facility] CBC W/PLT COUNT & AUTO 2022-09-26 03:40:00 Indio [facility] HEPATITIS B SURFACE 2022-09-25 08:07:00 Harris Rutledge [facility] HEMODIALYSIS INPATIENT 2022-09-25 07:15:26 Ry Prajapati [facility] CBC W/PLT COUNT & AUTO 2022-09-25 04:40:00 [facility] BASIC METABOLIC PANEL 2022-09-25 04:40:00 [facility] MAGNESIUM 2022-09-25 04:40:00 [facility] PHOSPHORUS 2022-09-25 04:40:00 [facility] HEPATITIS C ANTIBODY 2022-09-25 04:40:00 Keith Mantilla [facility] PERIPHERAL BLOOD SMEAR - 2022-09-25 04:40:00 Keith Mantilla [facility] PATHOLOGIST REVIEW Medical [facility] r CBC W/PLT COUNT & AUTO 2022-09-25 04:40:00 Indio [facility] 2D ECHO W/ DOPPLER 2022-09-24 15:49:57 Indio Cardozo [facility] (CW/PW/COLOR) [facility] CBC W/PLT COUNT & AUTO 2022-09-24 04:30:00 Indio Cardozo [facility] CBC W/PLT COUNT & AUTO 2022-09-24 04:30:00 [facility] BASIC METABOLIC PANEL 2022-09-24 04:30:00 [facility] MAGNESIUM 2022-09-24 04:30:00 [facility] PHOSPHORUS 2022-09-24 04:30:00 [facility] PROTEIN ELECTROPHORESIS, 2022-09-24 04:30:[address] [facility] HIGH SENSITIVITY TROPONIN 2022-09-23 18:09:00 Indio Cardozo [facility] POTASSIUM 2022-09-23 18:09:00 [facility] XR CHEST 1 VIEW PORTABLE / 2022-09-23 15:31:00 Indio Cardozo [facility] CBC W/PLT COUNT & AUTO 2022-09-23 15:15:00 Indio Cardozo [facility] COMPREHENSIVE METABOLIC 2022-09-23 15:15:[address] [facility] MAGNESIUM 2022-09-23 15:15:00 Indio Cardozo [facility] PHOSPHORUS 2022-09-23 15:15:00 Celli, Indio [facility] HIGH SENSITIVITY TROPONIN 2022-09-23 15:15:00 CelliIndio [facility] B-TYPE NATRIURETIC FACTOR 2022-09-23 15:15:00 CelliIndio Sydnee [facility] (BNP) [facility] CBC W/PLT COUNT & AUTO 2022-09-23 15:15:00 [facility]Indio [facility] TSH 2022-09-23 15:14:00 CelliIndio [facility] ECG 12-LEAD 2022-09-23 14:50:19 Unknown, [facility] ECG 12-LEAD 2022-09-23 14:50:19 Unknown, [facility] ECG 12-LEAD 2022-09-23 14:50:19 Unknown, [facility] PROTHROMBIN TIME WITH INR 2022-08-27 06:57:00 Miki Cleveland [facility] COMPREHENSIVE METABOLIC 2022-08-27 06:57:00 Miki Cleveland [facility] PANEL MAGNESIUM LEVEL 2022-08-27 06:57:00 Miki Cleveland Ho spital PHOSPHORUS LEVEL 2022-08-27 06:57:00 Miki [facility] ospital ESTIMATED GFR 2022-08-27 06:57:00 Miki Cleveland spital TROPONIN T 2022-08-27 06:57:00 Miki Cleveland Ho spital ZZCOVID-19 ANTI-SPIKE IGG 2022-08-27 06:56:00 Miki Cleveland [facility] ANTIBODY TITER COVID-19 SEROLOGY PATIENT 2022-08-27 06:56:00 Miki Cleveland [facility] SURVEILLANCE HC COMPLETE BLD COUNT 2022-08-27 06:56:00 Miki Cleveland [facility] W/AUTO DIFF COVID-19 QUALITATIVE 2022-08-27 04:58:00 Francisco Dean [facility] RT-PCR TROPONIN T 2022-08-27 03:58:00 Miki Cleveland Ho spital ECG ED PRELIMINARY 2022-08-27 03:37:43 [facility] INTERPRETATION XR CHEST 1 VW PORTABLE 2022-08-27 01:31:25 [facility] COMPREHENSIVE METABOLIC 2022-08-27 01:20:00 [facility] PANEL LIPASE LEVEL 2022-08-27 01:20:00 [facility] TROPONIN T 2022-08-27 01:20:00 Miki Cleveland spital B NATRIURETIC PEPTIDE 2022-08-27 01:20:00 [facility] HC COMPLETE BLD COUNT 2022-08-27 01:20:00 [facility] W/AUTO DIFF ESTIMATED GFR 2022-08-27 01:20:00 [facility] ECG 12-LEAD 2022-08-27 01:03:45 Miki Cleveland spital COMPREHENSIVE METABOLIC 2022-08-22 16:47:00 [facility] PANEL Herbert CBC WITH PLATELET AND 2022-08-22 16:47:00 [facility] DIFFERENTIAL Herbert THYROID STIMULATING 2022-08-22 16:47:00 [facility] HORMONE Herbert PARATHYROID HORMONE 2022-08-22 16:47:00 [facility] Herbert VITAMIN D 25 HYDROXY LEVEL 2022-08-22 16:47:00 [facility] Herbert NM BONE SCAN 3 PHASE 2022-07-26 18:11:00 [facility] Herbert BONE DENSITY 2022-07-26 14:02:48 [facility] spital Herbert BONE DENSITY PERIPHERAL 2022-07-26 14:02:48 [facility] Herbert POC GLUCOSE 2022-06-28 04:49:00 Maddison Wharton spital CBC HEMOGRAM 2022-06-27 10:05:00 Keith Lopez spital BASIC METABOLIC PANEL 2022-06-27 10:05:00 John, [facility] ESTIM[facility]FR 2022-06-27 10:05:00 Mary Ontiveros Ho spital Herbert XR LUMBAR SPINE 2 OR 3 VW 2022-06-26 21:10:24 John, Keith Cornejo. [facility] XR THORACIC SPINE 2 VW 2022-06-26 21:10:08 [facility] XR CHEST 1 VW PORTABLE 2022-06-26 19:05:29 Hannaks [facility] BASIC METABOLIC PANEL 2022-06-26 09:08:00 [facility] PHOSPHORUS LEVEL 2022-06-26 09:08:00 [facility] ESTIMATED GFR 2022-06-26 09:08:00 [facility] TTE COMPLETE, WO CONTRAST, 2022-06-25 15:40:58 Shayne Pavonmaradu [facility] W DOPPLER ([id number]) MRI THORACIC SPINE WO 2022-06-25 02:11:31 Mary Ontiveros [facility] CONTRAST Herbert MRI LUMBAR SPINE WO 2022-06-25 01:29:36 Clifton Lantigua [facility] CONTRAST [facility] HEPATITIS B CORE ANTIBODY 2022-06-24 17:34:00 Dina Cuello [facility] TOTAL HEPATITIS B SURFACE AB, 2022-06-24 17:34:00 CuelloDina [facility] QUANTITATIVE HEPATITIS B SURFACE 2022-06-24 17:34:00 [facility] ANTIGEN COVID-19 QUALITATIVE 2022-06-24 16:35:00 Clifton Lantigua [facility] RT-PCR [facility] COVID-19 OMICRON VARIANT 2022-06-24 16:35:00 Clifton Lantigua [facility] QUALITATIVE RT-PCR [facility] POC GLUCOSE 2022-06-24 16:35:00 Maddison Wharton Ho spital POC GLUCOSE 2022-06-24 15:09:00 [facility] LUMBAR SPINE WO 2022-06-24 13:41:51 Lantigua [facility] CONTRAST [facility] CT RENAL STONE PROTOCOL 2022-06-24 13:41:38 [facility] COMPLETE BLD COUNT 2022-06-24 12:44:00 LantiguaClifton [facility] W/AUTO DIFF [facility] 2022-06-24 12:44:00 [facility] PANEL [facility] ESTIMATED GFR 2022-06-24 12:44:00 [facility] [place] CRITICAL CARE, E/M 2022-06-24 12:28:33 LantiguaClifton [facility] 30-74 MINUTES [facility] HEPATITIS B SURFACE 2022-05-20 15:33:[address] [facility] HEPATITIS B SURFACE 2022-05-20 15:33:[address] [facility] ANTIBODY [facility] XR CHEST 1 VW PORTABLE 2022-04-29 13:25:18 [facility]inder [facility] 2022-04-29 10:32:00 [facility] PANEL HC COMPLETE BLD COUNT 2022-04-29 10:32:00 Amos Pressley [facility] W/AUTO DIFF ESTIMATED GFR 2022-04-29 10:32:00 Amos Pressley [facility] HEMODIALYSIS 2022-04-29 05:06:40 Catalina Teran ospital [place] HEPATITIS B CORE ANTIBODY 2022-04-28 20:59:00 Jeffry [facility] TOTAL [place] HEPATITIS B CORE ANTIBODY 2022-04-28 20:59:00 Jeffry [facility] IGM [place] HEPATITIS B SURFACE 2022-04-28 20:59:00 [facility] ANTIGEN [place] HEPATITIS B SURFACE AB, 2022-04-28 20:58:00 Met Jeffry [facility] QUANTITATIVE [place] HEMODIALYSIS 2022-04-28 15:58:20 [facility] TROPONIN T 2022-04-28 15:44:00 [facility]ST 1 VW PORTABLE 2022-04-28 11:41:07 [facility] TROPONIN T 2022-04-28 11:41:00 [facility] HC COMPLETE BLD COUNT 2022-04-28 11:41:00 [facility] W/AUTO DIFF COMPREHENSIVE METABOLIC 2022-04-28 11:41:00 [facility] PANEL PROTHROMBIN TIME WITH INR 2022-04-28 11:41:00 [facility] PARTIAL THROMBOPLASTIN 2022-04-28 11:41:00 [facility] TIME (PTT) B NATRIURETIC PEPTIDE 2022-04-28 11:41:00 [facility] PROCALCITONIN 2022-04-28 11:41:00 [facility] CREATINE KINASE, TOTAL 2022-04-28 11:41:00 [facility] (CPK) C-REACTIVE PROTEIN 2022-04-28 11:41:00 [facility] INTERLEUKIN 6 2022-04-28 11:41:00 [facility] FERRITIN LEVEL 2022-04-28 11:41:00 [facility] D-DIMER 2022-04-28 11:41:00 [facility] LDH 2022-04-28 11:41:00 [facility] FIBRINOGEN 2022-04-28 11:41:00 [facility] ESTIMATED GFR 2022-04-28 11:41:00 [facility] RESPIRATORY PATHOGEN PANEL 2022-04-28 09:45:00 Edelmira WoodallFormerly [facility] WITH COVID-19 RT-PCR [facility] XR CHEST 1 VW 2022-04-28 08:05:46 Taylor Woodall reema Laughlin BLOOD CULTURE, AEROBIC & 2022-04-28 07:49:00 Taylor Woodall [facility] ANAEROBIC [facility] HC COMPLETE BLD COUNT 2022-04-28 07:49:00 [facility]/AUTO DIFF [facility] COMPREHENSIVE METABOLIC 2022-04-28 07:49:00 Taylor Woodall [facility] PANEL [facility] TROPONIN T 2022-04-28 07:49:00 Amos Pressley [facility] B NATRIURETIC PEPTIDE 2022-04-28 07:49:00 [facility] ESTIMATED GFR 2022-04-28 07:49:00 Taylor Woodall ECG ED PRELIMINARY 2022-04-28 07:26:13 Taylor Woodall [facility] INTERPRETATION [facility] ECG 12-LEAD 2022-04-28 07:20:02 [facility] reema [facility] CT ABDOMEN PELVIS WO 2022-04-16 23:38:27 Cornelio [facility] CONTRAST HC COMPLETE BLD COUNT 2022-04-16 23:14:[address] [facility]/AUTO DIFF COMPREHENSIVE METABOLIC 2022-04-16 23:14:00 Cornelio [facility] PANEL LIPASE LEVEL 2022-04-16 23:14:00 Cornelio [facility] ESTIMATED GFR 2022-04-16 23:14:00 [facility] BASIC METABOLIC PANEL 2022-04-14 22:54:00 [facility] ESTIMATED GFR 2022-04-14 22:54:00 [facility] CorporationkristianParis [facility] POC GLUCOSE 2022-04-14 22:04:00 Puneet Lovelace [facility] CT ANGIOGRAM PE CHEST 2022-04-14 00:23:56 Fabiola Rashid [facility] IR VERTEBRO LUM UNI OR BALDO 2022-04-13 19:25:00 Jena Cool [facility] ECG 12-LEAD 2022-04-13 18:05:39 Greg Snyder [facility] BASIC METABOLIC PANEL 2022-04-13 10:16:00 Radu [facility] HC COMPLETE BLD COUNT 2022-04-13 10:16:00 Radu [facility] W/AUTO DIFF PROTHROMBIN TIME WITH INR 2022-04-13 10:16:00 [facility] ESTIMATED GFR 2022-04-13 10:16:00 Radu [facility] TYPE AND SCREEN 2022-04-13 10:16:00 Bannerra [facility] TROPONIN T 2022-04-13 02:33:00 Radu [facility] HEMODIALYSIS 2022-04-13 01:59:31 Vinnie-Oma Toledoist H ospital [place] TTE COMPLETE, WO CONTRAST, 2022-04-13 00:15:00 Puneet [facility] W DOPPLER ([id number]) TROPONIN T 2022-04-12 23:10:00 Radu [facility] TROPONIN T 2022-04-12 20:19:00 Radu [facility] HEMODIALYSIS 2022-04-11 13:51:20 Vinnie-Paris [facility] [place] HC COMPLETE BLD COUNT 2022-04-11 11:10:00 Jena Cool [facility] W/AUTO DIFF BASIC METABOLIC PANEL 2022-04-11 11:10:00 Travon [facility] PARATHYROID HORMONE 2022-04-11 11:10:00 TravonJena [facility] VITAMIN D 25 HYDROXY LEVEL 2022-04-11 11:10:00 [facility] DIGOXIN LEVEL 2022-04-11 11:10:00 Barkristian-Oma Toledoist H ospital [place] PHOSPHORUS LEVEL 2022-04-11 11:10:00 VinnieParis [facility] [place] ESTIMATED GFR 2022-04-11 11:10:00 [facility] COMPLETE BLD COUNT 2022-04-10 09:45:00 Travon [facility] W/AUTO DIFF BASIC METABOLIC PANEL 2022-04-10 09:45:00 Travon [facility] PROTHROMBIN TIME WITH INR 2022-04-10 09:45:00 Jena Cool [facility] ESTIMATED GFR 2022-04-10 09:45:00 Travon [facility] GASTROINTESTINAL PANEL 2022-04-09 22:47:00 Ellie Crespo [facility] XR CHEST 1 VW PORTABLE 2022-04-09 17:34:26 Travon [facility] HC COMPLETE BLD COUNT 2022-04-09 10:01:00 Travon [facility] W/AUTO DIFF BASIC METABOLIC PANEL 2022-04-09 10:01:00 Travon [facility] ESTIMATED GFR 2022-04-09 10:01:00 Travon [facility] HEMODIALYSIS 2022-04-08 14:21:31 VinnieOma [facility] HC COMPLETE BLD COUNT 2022-04-08 10:11:00 [facility]/AUTO DIFF COMPREHENSIVE METABOLIC 2022-04-08 10:11:00 Travon [facility] PANEL ESTIMATED GFR 2022-04-08 10:11:00 [facility] LUMBAR SPINE WO 2022-04-08 02:13:34 Gutierrez Leal [facility] CONTRAST POTASSIUM LEVEL 2022-04-07 18:15:00 [facility] CorporationkristianOma [facility]edoMon[facility] ospital [place] HEPATITIS B SURFACE 2022-04-07 13:46:00 [facility] CorporationkristianOma ToledoThe [facility] ANTIGEN [place] HEPATITIS B SURFACE 2022-04-07 13:46:00 [facility] CorporationkristianParis [facility] ANTIBODY [place] TROPONIN T 2022-04-07 13:43:00 Gutierrez Leal spital HEMODIALYSIS 2022-04-07 13:16:08 Catalina Teran H ospital [place] HC COMPLETE BLD COUNT 2022-04-07 11:21:00 [facility]alHi[facility]St[facility] W/AUTO DIFF PROTHROMBIN TIME WITH INR 2022-04-07 11:21:00 Shaikh [facility] COMPREHENSIVE METABOLIC 2022-04-07 11:21:00 Shaikh [facility] PANEL THYROID STIMULATING 2022-04-07 11:21:00 Leal [facility] HORMONE ESTIMATED GFR 2022-04-07 11:21:00 Gutierrez Leal spital ZZCOVID-19 ANTI-SPIKE IGG 2022-04-07 06:43:00 [facility] ANTIBODY TITER COVID-19 SEROLOGY PATIENT 2022-04-07 06:43:00 Shaikh [facility] SURVEILLANCE TROPONIN T 2022-04-07 06:43:00 Gutierrez Leal spital PROCALCITONIN 2022-04-07 06:43:00 Gutierrez Leal spital URINE CULTURE 2022-04-07 05:18:00 Ellie Crespo spital COVID-19 QUALITATIVE 2022-04-07 04:41:00 [facility] URINALYSIS SCREEN AND 2022-04-07 04:41:00 [facility] WITH REFLEX TO CULTURE CT ABDOMEN PELVIS WO 2022-04-07 03:51:[address] [facility] LUMBAR SPINE WO 2022-04-07 03:49:20 [facility] COMPREHENSIVE METABOLIC 2022-04-07 03:31:00 [facility] PANEL HC COMPLETE BLD COUNT 2022-04-07 03:31:00 [facility] W/AUTO DIFF ESTIMATED GFR 2022-04-07 03:31:00 Ellie Crespo spital XR CHEST 1 VW 2022-04-07 03:22:49 Ellie Crespo spital ECG ED PRELIMINARY 2022-04-07 02:44:33 Zak [facility] INTERPRETATION ECG 12-LEAD 2022-04-07 02:40:03 Gutierrez Leal spital HEMODIALYSIS 2021-12-28 14:28:03 [place], [facility] [place] BASIC METABOLIC PANEL 2021-12-28 03:17:00 [place], [facility] Valarie ESTIMATED GFR 2021-12-28 03:17:00 [place], [facility]orship ospital [place] POC GLUCOSE 2021-12-28 02:29:00 Michelle Golden [facility] R IR VERTEBRO CERVICAL AND 2021-12-27 20:19:56 SolipuraMichelle blackburn [facility] THOR UNI OR BALDO R IR VERTEBROPLASTY EA ADDL 2021-12-27 20:19:56 Michelle Golden [facility] T OR L R WY AN ELECTIVE 2021-12-27 19:47:00 Devonte Schuster [facility] ENDOTRACHEAL AIRWAY HEMODIALYSIS 2021-12-26 20:14:38 Baranonima-Daca, [facility] ospiSt. Joseph Regional Medical CenterValarie BLOOD CULTURE, AEROBIC & 2021-12-25 20:28:00 Nilesh Nation [facility] ANAEROBIC URINE CULTURE 2021-12-24 23:56:00 [place], Worship ospital [place] CT RENAL STONE PROTOCOL 2021-12-24 23:39:33 Baranonima-[place]aca, [facility] URINALYSIS SCREEN AND 2021-12-24 22:29:00 Baranowskylee-Daca, [facility] MICROSCOPY, WITH REFLEX TO [place] CULTURE HEMODIALYSIS 2021-12-24 15:08:13 [place], [facility] [place] HC COMPLETE BLD COUNT 2021-12-23 09:55:00 [place], [facility] W/AUTO DIFF R BASIC METABOLIC PANEL 2021-12-23 09:55:00 [place], [facility] R PROTHROMBIN TIME WITH INR 2021-12-23 09:55:00 [place], Michelle Painting [facility] R URIC ACID LEVEL 2021-12-23 09:55:00 [place], [facility] ospital [place] DIGOXIN LEVEL 2021-12-23 09:55:00 [place], [facility] ospital [place] CORTISOL LEVEL, AM 2021-12-23 09:55:00 [place], [facility] HEMOGLOBIN A1C 2021-12-23 09:55:00 [place], [facility] ospital [place] AMYLASE LEVEL 2021-12-23 09:55:00 [place], [facility] ospital [place] LIPASE LEVEL 2021-12-23 09:55:00 [place], [facility] [place] ESTIMATED GFR 2021-12-23 09:55:00 [place] D 25 HYDROXY LEVEL 2021-12-22 09:33:00 [place]an[place]ska[place], [facility] PARATHYROID HORMONE 2021-12-22 09:33:00 [place], [facility] PHOSPHORUS LEVEL 2021-12-22 09:33:00 [place], [facility] XR SHOULDER 2+ VW RIGHT 2021-12-22 04:05:25 [place], The [facility] HEMODIALYSIS 2021-12-22 03:41:52 Baranowska-Daca, [facility] ospital Valarie MRI LUMBAR SPINE WO 2021-12-21 15:10:25 Safia Scherer [facility] CONTRAST MRI THORACIC SPINE WO 2021-12-21 14:44:08 Safia Scherer [facility] CONTRAST BASIC METABOLIC PANEL 2021-12-21 10:43:00 Baranowska-Daca, [facility] Valarie ESTIMATED GFR 2021-12-21 10:43:00 [place]aca, [facility] BASIC METABOLIC PANEL 2021-12-20 22:26:00 Baranowska-Daca, [facility] Valarie ESTIMATED GFR 2021-12-20 22:26:00 [place]aca, [facility] HEMODIALYSIS 2021-12-20 14:03:25 [place], [facility] HC COMPLETE BLD COUNT 2021-12-20 09:43:00 [facility] W/AUTO DIFF Tajdin COMPREHENSIVE METABOLIC 2021-12-20 09:43:00 [facility] PANEL Tajdin MAGNESIUM LEVEL 2021-12-20 09:43:00 [facility] Tajdin ESTIMATED GFR 2021-12-20 09:43:00 [facility] Tajdin TROPONIN T 2021-12-20 00:24:00 Cristofer Grimes [facility] HEPATITIS B SURFACE 2021-12-20 00:24:00 [facility] ANTIGEN [facility] HEPATITIS B SURFACE AB, 2021-12-20 00:24:00 Jeffry [facility] QUANTITATIVE Valarie HEMODIALYSIS 2021-12-19 22:22:37 Baranonima-Peea, [facility] THYROID STIMULATING 2021-12-19 21:32:00 [facility] H[facility] T4, FREE 2021-12-19 21:32:00 Angy Mccodr spital TROPONIN T 2021-12-19 21:32:00 Angy Mccord Ho spital COVID-19 QUALITATIVE 2021-12-19 21:22:00 [facility] RT-PCR CT LUMBAR SPINE WO 2021-12-19 20:55:41 Ray, [facility] CONTRAST CT THORACIC SPINE WO 2021-12-19 20:53:28 Ray, [facility] CONTRAST CT ANGIOGRAM PE CHEST 2021-12-19 20:45:21 Ray, [facility] ECG 12-LEAD 2021-12-19 19:35:11 Ray, [facility] XR THORACIC SPINE 2 VW 2021-12-19 19:17:36 Ray, [facility] HC COMPLETE BLD COUNT 2021-12-19 18:50:00 Ray, [facility] W/AUTO DIFF COMPREHENSIVE METABOLIC 2021-12-19 18:50:00 Ray, [facility] PANEL TROPONIN T 2021-12-19 18:50:00 Ray, [facility] ESTIMATED GFR 2021-12-19 18:50:00 Ray, [facility] LIPASE LEVEL 2021-12-19 18:50:00 Ray, [facility] ECG ED PRELIMINARY 2021-12-19 18:18:35 Ray, [facility] INTERPRETATION XR CHEST 2 VW 2021-11-14 16:02:54 [facility] retinal eye 2019-12-11 06:00:00 Jourdan Barrios exam<sup>1</sup> Mammogram 2017-05-05 05:00:00 Aylin Her hunt Colonoscopy<sup>2</sup> 2016-11-17 06:00:00 Turner rial [place] OPEN REDUCTION INTERNAL 2015-12-30 22:13:00 Jose Francisco Johnson rial [place] FIXATION RADIUS INTRA-ARTICULAR W/3 FRAGMENTS 03259 (Right)<sup>1</sup> Repair of 2015-12-30 06:00:00 Aylin hunt wrist<sup>3</sup> skin cancer removed from 2011-10-22 00:00:00 Mem orial [place] arm Cholecystectomy [facility] Denis Procedure<sup>2</sup> [facility] ermann Tubal ligation [facility] Eye operation [facility] [place] Biopsy of breast Aylin Zhang n bilateral radial Aylin Zhang n kerototomy bilateral tubal ligation Jourdan Barrios colonoscopy [facility] Skin cancer of [facility] arm<sup>4</sup> Plan of Care Planned [...] (2 - Td or Tdap)] Future Scheduled 2022-10-31 COVID-19 VACCINE (#1) [facility] Test 12:01:44 [code = COVID-19 VACCINE (#1)] Future Scheduled 2022-10-31 65+ PNEUMOCOCCAL [facility] Test 12:01:44 VACCINE (1 - PCV) [code = 65+ PNEUMOCOCCAL VACCINE (1 - PCV)] Future Scheduled 2022-10-31 SHINGLES VACCINES (1 Met [facility] Test 12:01:44 of 2) [code = SHINGLES VACCINES (1 of 2)] Future Scheduled 2022-10-31 COLONOSCOPY SCREENING [facility] Test 12:01:44 [code = COLONOSCOPY SCREENING] Future Scheduled 2022-10-31 BREAST CANCER [facility] Test 12:01:44 SCREENING [code = BREAST CANCER SCREENING] Future Scheduled 2022-10-[address] [facility] Test 00:00:00 (12+) [code = Medical Center DEPRESSION SCREENING (12+)] Future Scheduled 2022-10-22 FALLS RISK SCREENING [facility] Test 00:00:00 [code = FALLS RISK Medical C enter SCREENING] Future Scheduled 2022-09-01 HEPATITIS B VACCINES Met [facility] Test 11:07:43 (1 of 3 - 3-dose series) [code = HEPATITIS B VACCINES (1 of 3 - 3-dose series)] Future Scheduled 2022-09-01 COVID-19 VACCINE (#1) [facility] Test 11:07:43 [code = COVID-19 VACCINE (#1)] Future Scheduled 2022-09-01 65+ PNEUMOCOCCAL [facility] Test 11:07:43 VACCINE (1 - PCV) [code = 65+ PNEUMOCOCCAL VACCINE (1 - PCV)] Future Scheduled 2022-09-01 SHINGLES VACCINES (1 Met [facility] Test 11:07:43 of 2) [code = SHINGLES VACCINES (1 of 2)] Future Scheduled 2022-09-01 Screening for [facility] Test 11:07:43 malignant neoplasm of cervix (procedure) [code = 161739533] Future Scheduled 2022-09-01 COLONOSCOPY SCREENING [facility] Test 11:07:43 [code = COLONOSCOPY SCREENING] Future Scheduled 2022-09-01 BREAST CANCER [facility] Test 11:07:43 SCREENING [code = BREAST [...] Medica l Center breast (procedure) [code = 658642369] Future Scheduled [address] [facility] Test 00:00:00 (combo) [code = CT Medical C enter Colonography (combo)] Future Scheduled [address] [facility] Test 00:00:00 malignant neoplasm of Medica l Center colon (procedure) [code = 817020046] Future Scheduled [address] [facility] Test 00:00:00 malignant neoplasm of Medica l Center colon (procedure) [code = 984735351] Future Scheduled 1956 DXA SCAN [code = DXA [facility] Test 00:00:00 SCAN] [facility] Future Scheduled [address] [facility] Test 00:00:00 malignant neoplasm of Medica l Center colon (procedure) [code = 979345786] Future Scheduled [address] [facility] Test 00:00:00 malignant neoplasm of Medica l Center colon (procedure) [code = 625720925] Future Scheduled 1956 Sigmoidoscopy [facility]code = [facility] Future Scheduled [address] [facility] Test 00:00:00 malignant neoplasm of Medica l Center breast (procedure) [code = 757488395] Future Scheduled [address] [facility] Test 00:00:00 (combo) [code = CT Medical C enter Colonography (combo)] Future Scheduled [address] [facility] Test 00:00:00 malignant neoplasm of Medica l Center colon (procedure) [code = 436125280] Future Scheduled [address] [facility] Test 00:00:00 malignant neoplasm of Medica l Center colon (procedure) [code = 206287241] Future Scheduled 1956 DXA SCAN [code = DXA [facility] Test 00:00:00 SCAN] [facility] Future Scheduled [address] [facility] Test 00:00:00 malignant neoplasm of Medica l Center colon (procedure) [code = 015752204] Future Scheduled [address] [facility] Test 00:00:00 malignant neoplasm of Medica l Center colon (procedure) [code = 957399903] Future Scheduled 1956 [facility]igmoidoscopy [facility] 00:[facility]oscopy] [facility] Future Scheduled [address] [facility] [facility] Test 00:00:00 malignant neoplasm of Medica l Center breast (procedure) [code = 235368000] Future Scheduled [address] [facility] Test 00:00:00 (combo) [code = CT Medical C enter Colonography (combo)] Future Scheduled [address] [facility] Test 00:00:00 malignant neoplasm of Medica l Center colon (procedure) [code = 978821973] Future Scheduled [address] [facility] Test 00:00:00 malignant neoplasm of Medica l Center colon (procedure) [code = 281214729] Future Scheduled 1956 DXA SCAN [code = DXA [facility] Test 00:00:00 SCAN] [facility] Future Scheduled [address] [facility] Test 00:00:00 malignant neoplasm of Medica l Center colon (procedure) [code = 669658550] Future Scheduled [address] [facility] Test 00:00:00 malignant neoplasm of Medica l Center colon (procedure) [code = 710145887] Future Scheduled 1956 Sigmoidoscopy [facility]] [facility] Future Scheduled [address] [facility] Test 00:00:00 malignant neoplasm of Medica l Center breast (procedure) [code = 284937477] Future Scheduled [address] [facility] Test 00:00:00 (combo) [code = CT Medical C enter Colonography (combo)] Future Scheduled [address] [facility] Test 00:00:00 malignant neoplasm of Medica l Center colon (procedure) [code = 651625099] Future Scheduled [address] [facility] Test 00:00:00 malignant neoplasm of Medica l Center colon (procedure) [code = 914679983] Future Scheduled 1956 DXA SCAN [code = DXA [facility] Test 00:00:00 SCAN] [facility] Future Scheduled [address] [facility] [facility] Test 00:00:00 malignant neoplasm of Medica l Center colon (procedure) [code = 966181651] Future Scheduled [address] [facility] Test 00:00:00 malignant neoplasm of Medica l Center colon (procedure) [code = 009573623] Future Scheduled 1956 Sigmoidoscopy [facility]oscopy] [facility] Cent[facility] r Encounters Start End Encounter Admission Attending Care Care Encounter Source Date/Time Date/Time Type Type Clinicians Facility Department ID 2022-03-13 Inpatient HARJEET King HCAPM ENDO [id number] [facility] 09:[facility]:[address] 2022-09-23 2022-09-27 [facility] [id number] [facility] 14:20:00 12:50:00 Encounter Keith Mantilla [facility] 2022-09-23 2022-09-27 Inpatient [facility] Cardiology 20 [id number] SLE 14:20:00 12:50:00 TRE 2022-09-23 2022-09-27 [facility] [id number] [facility] 14:20:00 12:50:00 Encounter Keith Mantilla [facility] 2022-09-26 2022-09-[address] [facility] [id number] 00:00:00 00:00:00 [facility] 2022-09-26 2022-09-[address] [facility] [id number] 00:00:00 00:00:00 [facility] 2022-09-23 2022-09-23 Outpatient BCM BCM [id number] [facility] 00:00:00 23:59:00 Antonia e 2022-09-23 2022-09-[address] [facility] [id number] 00:00:00 00:00:00 [facility] 2022-09-23 2022-09-[address] [facility] [id number] 00:00:00 00:00:00 [facility] 2022-09-08 2022-09-08 Travel 1.2.840.1 1.2.902.101 1436 [id number] Methodi 00:00:00 00:00:[address] 3.430.2.7 0.2.7.3.698 Ho spita .3.285114 084.8 l .8 2022-09-05 2022-09-05 Telephone Valerie, 1.2.840.1 [id number] [id number] Methodi 00:00:00 00:00:[address] 3.430.2.7 Hospit a .3.603123 l .8 2022-08-26 2022-08-27 Hospital Francisco Dean 1.2.840.1 1 [id number] Methodi 20:01:00 18:10:00 Encounter Salvador Gomez 55560.1.[address] [facility] 3.430.2.7 [facility][1]moira Nereida .3.092101 l .8 2022-08-26 2022-08-27 Hospital [facility], 1.2.840.1 [id number] [place] 00:00:00 00:00:00 Encounter REGINALD 50918.1.1 [address] .3.323804 .8 2022-08-26 2022-08-26 Travel 1.2.840.1 1.2.256.834 0268 [id number] Methodi 00:00:00 00:00:[address] 3.430.2.7 0.2.7.3.698 Ho spita .3.683773 084.8 l .8 2022-08-26 2022-08-26 Travel 1.2.840.1 1.2.146.556 3178 [id number] Methodi 00:00:00 00:00:[address] 3.430.2.7 0.2.7.3.698 Ho spita .3.714596 084.8 l .8 2022-08-22 2022-08-22 Orders Ontiveros, 1.2.840.1 [id number] Methodi 00:00:00 00:00:00 Only Mary 53673.1.[address] [place] 3.430.2.7 Hosp naye .3.046662 l .8 2022-08-22 2022-08-22 Orders Ontiveros, 1.2.840.1 [id number] Methodi 00:00:00 00:00:00 Only Mary 90819.1.[address] [place] 3.430.2.7 Hosp naye .3.019412 l .8 2022-08-11 2022-08-11 Office Ontiveros, 1.2.840.1 [id number] 4726 Methodi 12:00:00 12:15:00 Visit Mary 10827.1.[address] [place] 3.430.2.7 Hosp naye .3.439694 l .8 2022-08-11 2022-08-11 Office Ontiveros, 1.2.840.1 [id number] 6599 Methodi 12:00:00 12:15:00 Visit Mary 90863.1.[address] [place] 3.430.2.7 Hosp naye .3.233504 l .8 2022-08-11 2022-08-11 Travel 1.2.840.1 1.2.576.284 8316 759412 Methodi 00:00:00 00:00:[address] 3.430.2.7 0.2.7.3.698 Ho spita .3.265138 084.8 l .8 2022-08-11 2022-08-11 Travel 1.2.840.1 1.2.024.845 7518 836731 Methodi 00:00:00 00:00:[address] 3.430.2.7 0.2.7.3.698 Ho spita .3.039247 084.8 l .8 2022-08-02 2022-08-02 Travel 1.2.840.1 1.2.597.450 4455 304246 Methodi 00:00:00 00:00:[address] 3.430.2.7 0.2.7.3.698 Ho spita .3.262814 084.8 l .8 2022-08-02 2022-08-02 Travel 1.2.840.1 1.2.606.400 4609 177265 Methodi 00:00:00 00:00:[address] 3.430.2.7 0.2.7.3.698 Ho spita .3.139686 084.8 l .8 2022-07-26 2022-07-26 [facility], 1.2.840.1 [id number] Methodi 12:10:58 23:59:00 Encounter Mary 59677.1.1 626 s t [place] 3.430.2.7 Hosp naye .3.136267 l .8 2022-07-26 2022-07-26 [facility], 1.2.840.1 [id number] Methodi 09:06:47 12:09:00 Encounter Mary 12377.1.1 624 [address] t [place] 3.430.2.7 Hosp naye .3.683751 l .8 2022-07-26 2022-07-26 [facility], 1.2.840.1 [id number] Methodi 08:25:04 09:05:00 Encounter Mary 76316.1.1 622 s t [place] 3.430.2.7 Hosp naye .3.555233 l .8 2022-07-26 2022-07-26 [facility], 1.2.840.1 [id number] [place] 00:00:00 00:00:00 Encounter MARY 51071.1.1 [address].2.7 [address] .3.887960 .8 2022-07-26 2022-07-26 [facility], 1.2.840.1 [id number] [place] 00:00:00 00:00:00 Encounter MARY 98381.1.1 [address]7 [address] .3.591801 .8 2022-07-26 2022-07-26 [facility], 1.2.840.1 [id number] [place] 00:00:00 00:00:00 Encounter MARY 30128.1.1 [address].2.7 [address] .3.728207 .8 2022-07-26 2022-07-26 Travel 1.2.840.1 1.2.031.505 3760 454207 Methodi 00:00:00 00:00:[address] 3.430.2.7 0.2.7.3.698 Ho spita .3.063541 084.8 l .8 2022-07-26 2022-07-26 Travel 1.2.840.1 1.2.960.939 8377 985564 Methodi 00:00:00 00:00:[address] 3.430.2.7 0.2.7.3.698 Ho spita .3.654156 084.8 l .8 2022-07-11 2022-07-11 Office Ekeruo, 1.2.840.1 [id number] 7921 Methodi 14:15:00 14:15:00 Visit Mary 57971.1.[address] 3.430.2.7 Hospit a .3.977837 l .8 2022-07-11 2022-07-11 Office Ekeruo, 1.2.840.1 [id number] 1962 Methodi 14:15:00 14:15:00 Visit Mary 03950.1.[address] 3.430.2.7 Hospit a .3.329944 l .8 2022-07-11 2022-07-11 Travel 1.2.840.1 1.2.949.900 3034 721146 Methodi 00:00:00 00:00:[address] 3.430.2.7 0.2.7.3.698 Ho spita .3.974227 084.8 l .8 2022-07-11 2022-07-11 Travel 1.2.840.1 1.2.936.164 9088 826363 Methodi 00:00:00 00:00:[address] 3.430.2.7 0.2.7.3.698 Ho spita .3.022865 084.8 l .8 2022-07-04 2022-07-04 Office [place], 1.2.840.1 [id number] 8125 Methodi 12:45:00 13:22:26 Visit Mary 82682.1.[address] [place] 3.430.2.7 Hosp naye .3.200953 l .8 2022-07-04 2022-07-04 Office [place], 1.2.840.1 [id number] 8686 Methodi 12:45:00 13:22:26 Visit Mary 94566.1.[address] [place] 3.430.2.7 Hosp naye .3.515960 l .8 2022-07-03 2022-07-03 Travel 1.2.840.1 1.2.972.294 0038 573123 Methodi 00:00:00 00:00:[address] 3.430.2.7 0.2.7.3.698 Ho spita .3.125940 084.8 l .8 2022-07-03 2022-07-03 Travel 1.2.840.1 1.2.695.955 1837 648546 Methodi 00:00:00 00:00:[address] 3.430.2.7 0.2.7.3.698 Ho spita .3.388409 084.8 l .8 2022-06-24 2022-06-28 [facility] hbhai 1.2.840.1 [id number] Methodi 07:21:00 20:54:00 Encounter Maddison Wharton 56367.1.[address] 3.430.2.7 Hospit a .3.194746 l .8 2022-06-24 2022-06-28 [facility] hbhai 1.2.840.1 [id number] Methodi 07:21:00 20:54:00 Encounter Maddison Wharton 86963.1.[address] 3.430.2.7 Hospit a .3.718372 l .8 2022-06-27 2022-06-27 Prep for Cerna, 1.2.840.1 [id number] 13066 Methodi 00:00:00 00:00:00 Surgery Taylor D 70857.1.1 190 s t 3.430.2.7 Hospit a .3.255885 l .8 2022-06-27 2022-06-27 Prep for Cerna, 1.2.840.1 [id number] 02236 Methodi 00:00:00 00:00:00 Surgery Taylor D 01821.1.1 190 s t 3.430.2.7 Hospit a .3.750707 l .8 2022-06-24 2022-06-24 Travel 1.2.840.1 1.2.179.105 3300 970314 Methodi 00:00:00 00:00:[address] 3.430.2.7 0.2.7.3.698 Ho spita .3.310684 084.8 l .8 2022-06-24 2022-06-24 Travel 1.2.840.1 1.2.939.525 0372 164147 Methodi 00:00:00 00:00:[address] 3.430.2.7 0.2.7.3.698 [facility] .3.291923 084.8 l .8 2022-06-14 2022-06-14 Outpatient LEONEL Conteh OUTD [id number] [facility] 04:58:00 04:58:00 Quentin 89 [facility] 2022-06-07 2022-06-07 Outpatient LEONEL Conteh OUTD [id number] [facility] 06:37:00 06:37:00 Quentin 64 [facility] 2022-05-20 2022-05-[address] [facility] [id number] 00:00:00 00:00:00 [facility] 2022-05-20 2022-05-[address] [facility] [id number] 00:00:00 00:00:00 [facility] 2022-05-04 2022-05-04 [facility] 476 [id number] [place] 00:00:00 00:00:00 [address] [facility] 2022-04-28 2022-04-29 Emergency Taylor Woodall 1.2.840 .1 [id number] Methodi 02:04:00 18:01:00 Laura Carbajal 37825.1.1 026 [facility] 3.430.2.7 [facility] .3.078373 l .8 2022-04-28 2022-04-29 Emergency Taylor Woodall 1.2.840 .1 [id number] Methodi 02:04:00 18:01:00 Laura Carbajal 89785.1.1 026 [facility] 3.430.2.7 [facility] .3.656488 l .8 2022-04-28 2022-04-28 Travel 1.2.840.1 1.2.594.999 6772 339005 Methodi 00:00:00 00:00:[address] 3.430.2.7 0.2.7.3.698 Ho spita .3.972665 084.8 l .8 2022-04-28 2022-04-28 Travel 1.2.840.1 1.2.867.247 1693 303075 Methodi 00:00:00 00:00:[address] 3.430.2.7 0.2.7.3.698 Ho spita .3.604692 084.8 l .8 2022-04-19 2022-04-20 Outpatient nullFlavo [facility] Family 3 [id number] Memoria 21:20:00 04:59:59 r Medicine 56 l Carrillo Zhang n 2022-04-19 2022-04-20 Outpatient nullFlavo [facility] Family 3 [id number] Memoria 21:20:00 04:59:59 r Medicine 56 l Carrillo Zhang n 2022-04-19 2022-04-19 Outpatient Carrillo, MG [facility] [id number] 16:20:00 23:59:59 Antonella N 56 2022-04-19 2022-04-19 Outpatient [facility] [id number] Memoria 16:20:00 16:20:00 56 l Denis 2022-04-16 2022-04-16 Emergency Nweze, 1.2.840.1 [id number] 2099 [id number] Methodi 17:10:00 22:30:[address] Latoya 3.430.2.7 Hosp naye .3.193536 l .8 2022-04-16 2022-04-16 Emergency Nweze, 1.2.840.1 [id number] 2099 [id number] Methodi 17:10:00 22:30:[address] Latoya 3.430.2.7 Hosp naye .3.195450 l .8 2022-04-16 2022-04-16 Travel 1.2.840.1 1.2.912.158 0442 [id number] Methodi 00:00:00 00:00:[address] 3.430.2.7 0.2.7.3.698 Ho spita .3.656313 084.8 l .8 2022-04-16 2022-04-16 Travel 1.2.840.1 1.2.571.838 5557 897733 Methodi 00:00:00 00:00:[address] 3.430.2.7 0.2.7.3.698 Ho spita .3.662575 084.8 l .8 2022-04-06 2022-04-15 [facility] 1.2.840.1 104 [id number] Methodi 21:20:00 13:07:00 Encounter Gutierrez Leal 17324.1.[address] Jena Cool 3.430.2.7 [facility] .3.879469 l .8 2022-04-06 2022-04-15 [facility] Travon T. 1.2.840.1 104 [id number] [id number] Methodi 21:20:00 13:07:00 Encounter Gutierrez Leal 14938.1.[address] Jena Cool 3.430.2.7 [facility] .3.686495 l .8 2022-04-13 2022-04-13 Anesthesia Claudio 1.2.840.1 [id number] [id number] Methodi 13:41:00 14:30:00 Event Vivao 45633.1.[address] Pauline 3.430.2.7 Hospit a .3.640673 l .8 2022-04-13 2022-04-13 Anesthesia Claudio 1.2.840.1 [id number] Methodi 13:41:00 14:30:00 Event Yaoyao 79024.1.[address] Pauline 3.430.2.7 Hospit a .3.422909 l .8 2022-04-06 2022-04-06 Travel 1.2.840.1 1.2.900.559 4436 558848 Methodi 00:00:00 00:00:[address] 3.430.2.7 0.2.7.3.698 Ho spita .3.825010 084.8 l .8 2022-04-06 2022-04-06 Travel 1.2.840.1 1.2.455.032 2311 929001 Methodi 00:00:00 00:00:[address] 3.430.2.7 0.2.7.3.698 Ho spita .3.001524 084.8 l .8 2022-03-08 2022-03-08 Outpatient Mic Warren HCAPM DAYS LA0 [id number] [facility] 07:07:00 07:07:00 79 [facility] 2022-03-08 2022-03-08 [facility] [id number] [facility] 07:07:00 07:07:00 [facility] 2022-03-06 2022-03-08 Phone nullFlavo [facility] Family [id number] [facility] 15:25:04 04:59:59 Message r Medicine 17 l Carrillo Zhang ryan 2022-03-06 2022-03-08 Phone nullFlavo [facility] Family [id number] [facility] 15:25:04 04:59:59 Message r Medicine 17 l Carrillo Zhang ryan 2022-03-06 2022-03-07 Outpatient [facility] [id number] 10:25:04 23:59:59 17 2022-03-03 2022-03-03 Emergency EM TenChris schmid HCAPM POLLO LA00 [id number] [facility] 12:08:00 15:51:00 00 [facility] 2022-03-03 2022-03-03 Emergency EM Chris Carter HCAPM HCAPM [id number] [facility] 12:08:00 15:51:00 [facility] 2022-02-27 2022-02-27 Outpatient HARJEET King, HCAPM ENDO [id number] [facility] 07:10:00 07:10:00 [facility] 92 [facility] 2022-01-18 2022-01-18 Ambulatory nullFlavo [facility] Family 3 [id number] [facility] 15:15:00 15:15:00 Pre-Reg r Medicine 55 l Carrillo Zhang n 2022-01-18 2022-01-18 Ambulatory nullFlavo [facility] Family 3 [id number] [facility] 15:15:00 15:15:00 Pre-Reg r Medicine 55 l Carrillo Zhang n 2022-01-18 2022-01-18 Outpatient [facility] [id number] [facility] 10:15:00 10:15:00 55 l Denis 2022-01-18 2022-01-18 Outpatient Carrillo, [facility] [id number] 10:15:00 10:15:00 Antonella N 55 2022-01-16 2022-01-16 Outpatient MHIE MHIE [id number] [facility] 10:30:00 10:30:00 56 l Denis 2022-01-16 2022-01-16 Outpatient [facility] [id number] [facility] 10:30:00 10:30:00 56 leonard Barrios 2022-01-05 2022-01-05 Patient Phuong Mcginnis 1.2.840.1 [id number] Methodi 00:00:00 00:00:[address] 3.430.2.7 Hospit a .3.205482 l .8 2022-01-05 2022-01-05 Patient Phuong Mcginnis 1.2.840.1 [id number] Methodi 00:00:00 00:00:[address] 3.430.2.7 Hospit a .3.510422 l .8 2021-12-30 2021-12-30 Office Bam 1.2.840.1 [id number] 2488 Methodi 10:15:00 11:21:59 Visit Mary 49378.1.[address] 3.430.2.7 Hospit a .3.699023 l .8 2021-12-30 2021-12-30 Office Ekandrews, 1.2.840.1 [id number] 1203 Methodi 10:15:00 11:21:59 Visit Mary 93146.1.[address] 3.430.2.7 Hospit a .3.837175 l .8 2021-12-30 2021-12-30 Travel 1.2.840.1 1.2.253.803 2184 [id number] Methodi 00:00:00 00:00:[address] 3.430.2.7 0.2.7.3.698 Ho spita .3.061466 084.8 l .8 2021-12-30 2021-12-30 Travel 1.2.840.1 1.2.077.948 3166 [id number] Methodi 00:00:00 00:00:00 14345.1.1 350[address]1.13.[address] 3.430.2.7 0.2.7.3.698 Ho spita .3.032771 084.8 l .8 2021-12-19 2021-12-28 [facility] 1.2.840.1 1 [id number] Methodi 12:16:00 16:05:00 Encounter Michelle Golden 02884.1.[address] 3.430.2.7 Hospit a .3.901423 l .8 2021-12-19 2021-12-28 [facility] 1.2.840.1 1 [id number] Methodi 12:16:00 16:05:00 Encounter Michelle Golden 15038.1.[address] 3.430.2.7 Hospit a .3.548875 l .8 2021-12-27 2021-12-27 Anesthesia Robert Young 1.2.8 40.1 [id number] Methodi 13:07:00 14:43:00 Event Nishi Shelton Ashley 11787.1.[address] 3.430.2.7 Hospit a .3.509733 l .8 2021-12-27 2021-12-27 Anesthesia Robert Young 1.2.8 40.1 [id number] Methodi 13:07:00 14:43:00 Event Nishi Shelton 58401.1.[address] 3.430.2.7 Hospit a .3.601054 l .8 2021-12-26 2021-12-26 Telephone Ekeruo, 1.2.840.1 [id number] [id number] Methodi 00:00:00 00:00:[address] 3.430.2.7 Hospit a .3.595663 l .8 2021-12-26 2021-12-26 Telephone Ekeruo, 1.2.840.1 [id number] 2099 [id number] Methodi 00:00:00 00:00:[address] 3.430.2.7 Hospit a .3.871310 l .8 2021-12-19 2021-12-21 Phone nullFlavo [facility] Family 3467 [id number] Memoria 17:07:02 05:59:59 Message r Medicine 16 l Carrillo Zhang n 2021-12-19 2021-12-21 Phone nullFlavo [facility] Family 3467 [id number] Memoria 17:07:02 05:59:59 Message r Medicine 16 l Carrillo Zhang ryan 2021-12-19 2021-12-20 Outpatient [facility] [id number] 11:07:02 23:59:59 16 2021-12-19 2021-12-19 Travel 1.2.840.1 1.2.179.871 1154 120031 Methodi 00:00:00 00:00:[address] 3.430.2.7 0.2.7.3.698 Ho spita .3.327834 084.8 l .8 2021-12-19 2021-12-19 Travel 1.2.840.1 1.2.639.517 6310 120031 Methodi 00:00:00 00:00:[address] 3.430.2.7 0.2.7.3.698 Ho spita .3.103939 084.8 l .8 2021-11-15 2021-11-15 Office [facility], 1.2.840.1 [id number] 4517 Methodi 16:30:00 16:34:07 Visit Scott 57500.1.[address] 3.430.2.7 Hospit a .3.394536 l .8 2021-11-15 2021-11-15 Office [facility], 1.2.840.1 [id number] 1279 Methodi 16:30:00 16:34:07 Visit Scott 70952.1.[address] 3.430.2.7 Hospit a .3.692389 l .8 2021-11-14 2021-11-14 [facility], 1.2.840.1 [id number] 81099 94217 Methodi 09:45:00 23:59:00 Encounter Scott 83233.1.[address] 3.430.2.7 Hospit a .3.710575 l .8 2021-11-14 2021-11-14 [facility], 1.2.840.1 [id number] 29439 Methodi 09:45:00 23:59:00 Encounter Scott [address]391.1.[address] 3.430.2.7 Hospit a .3.340322 l .8 2021-11-14 2021-11-14 Travel 1.2.840.1 1.2.490.116 8227 914555 Methodi 00:00:00 00:00:[address] 3.430.2.7 0.2.7.3.698 Ho spita .3.928937 084.8 l .8 2021-11-14 2021-11-14 Travel 1.2.840.1 1.2.696.903 4147 079263 Methodi 00:00:00 00:00:00 75026.1.1 350.1.13.43 961 3.430.2.7 0.2.7.3.698 Ho spita .3.962906 084.8 l .8 2021-10-28 2021-10-30 Phone nullFlavo [facility] 3467 [id number] Memoria 19:33:53 05:59:59 Message r Medicine 15 leonard Zhang n 2021-10-28 2021-10-30 Phone nullFlavo [facility] 3467 [id number] Memoria 19:33:53 05:59:59 Message r Medicine 15 leonard Zhang n 2021-10-28 2021-10-29 Outpatient [facility] [id number] 13:33:53 23:59:59 15 2021-10-19 2021-10-21 Phone nullFlavo [facility] 3467 [id number] Memoria 19:38:03 05:59:59 Message r Medicine 14 l Carrillo Zhang n 2021-10-19 2021-10-21 Phone nullFlavo [facility] 3467 [id number] Memoria 19:38:03 05:59:59 Message r Medicine 14 leonard Zhang n 2021-10-19 2021-10-20 Outpatient [facility] [id number] 13:38:03 23:59:59 14 2021-10-17 2021-10-18 Outpatient nullFlavo [facility] 3 [id number] Memoria 21:15:00 05:59:59 r Medicine 53 l Carrillo Zhang n 2021-10-17 2021-10-18 Outpatient nullFlavo [facility] 3 [id number] Memoria 21:15:00 05:59:59 r Medicine 53 l Carrillo Zhang n 2021-10-17 2021-10-17 Outpatient Carrillo, [facility] [id number] 15:15:00 23:59:59 Antonella Davis 53 2021-10-17 2021-10-17 Outpatient MHIE MHIE [id number] Memoria 15:15:00 15:15:00 Elizabeth Barrios 2021-09-20 2021-09-20 Office sebastian, 1.2.840.1 [id number] 1692 Methodi 15:30:00 16:01:04 Visit Scott 91135.1.[address] 3.430.2.7 Hospit a .3.822012 l .8 2021-09-20 2021-09-20 Travel 1.2.840.1 1.2.090.011 4731 965844 Methodi 00:00:00 00:00:[address] 3.430.2.7 0.2.7.3.698 Ho spita .3.114388 084.8 l .8 2021-09-12 2021-09-13 Between nullFlavo [facility] 3467 [id number] Memoria 14:18:24 14:18:24 Visit r Medicine 62 l Carrillo davis 2021-09-12 2021-09-13 Between nullFlavo [facility] 3467 [id number] Memoria 14:18:24 14:18:24 Visit r Medicine 62 l Carrillo davis 2021-09-12 2021-09-13 Outpatient [facility] [id number] 08:18:24 08:18:24 62 2021-09-12 2021-09-13 Between nullFlavo [facility] Family 3467 [id number] Memoria 00:56:47 00:56:47 Visit r Medicine 61 l Carrillo davis 2021-09-12 2021-09-13 Between nullFlavo [facility] 3467 [id number] Memoria 00:56:47 00:56:47 Visit r Medicine 61 l Carrillo davis 2021-09-11 2021-09-12 Outpatient [facility] [id number] 18:56:47 18:56:47 61 2021-09-09 2021-09-10 Outpatient nullFlavo [facility] 3 [id number] Memoria 20:00:00 05:59:59 r Medicine 52 l Carrillo davis 2021-09-09 2021-09-10 Outpatient nullFlavo [facility] 3 [id number] Memoria 20:00:00 05:59:59 r Medicine 52 l Carrillo davis 2021-09-09 2021-09-09 Outpatient Carrillo, [facility] [id number] 14:00:00 23:59:59 Antonella Davis 52 2021-09-09 2021-09-09 Outpatient [facility] [id number] Memoria 14:00:00 14:00:00 52 leonard Barrios 2021-09-06 2021-09-08 Phone nullFlavo [facility] Family 3467 [id number] Memoria 21:38:38 05:59:59 Message r Medicine 13 leonard davis 2021-09-06 2021-09-08 Phone nullFlavo [facility] Family William [id number] Memoria 21:38:38 05:59:59 Message r Medicine 13 leonard davis 2021-09-06 2021-09-07 Outpatient [facility] [id number] 15:38:38 23:59:59 13 2021-09-07 2021-09-07 Office Bam, 1.2.840.1 [id number] 3731 Methodi 11:00:00 11:44:58 Visit Mary 29775.1.[address] 3.430.2.7 Hospit a .3.207373 l .8 2021-09-07 2021-09-07 Travel 1.2.840.1 1.2.742.818 8123 [id number] Methodi 00:00:00 00:00:[address] 3.430.2.7 0.2.7.3.698 Ho spita .3.036342 084.8 l .8 2021-09-05 2021-09-06 Between nullFlavo [facility] Family 3467 [id number] Memoria 15:33:59 15:33:59 Visit r Medicine 59 l Carrillo Zhang ryan 2021-09-05 2021-09-06 Between nullFlavo [facility] Family 3467 [id number] Memoria 15:33:59 15:33:59 Visit r Medicine 59 l Carrillo Zhang ryan 2021-09-05 2021-09-06 Outpatient [facility] [id number] 09:33:59 09:33:59 59 2021-07-14 2021-07-26 Inpatient KRISHNA, [facility] 074 [id number] [place] 00:00:00 00:00:00 MICHELEL [address] 2021-07-19 2021-07-19 Outpatient GC_EAH_Brow PRIV PRIV [id number] [place] 00:00:00 00:00:00 n_J [id number] Medica l 2021-07-13 2021-07-13 Outpatient OPPERMANN, [facility] [id number] [place] 00:00:00 00:00:00 KRISTIAN 104 Method i 2021-06-30 2021-06-30 Outpatient AHMED, [facility] [id number] [place] 00:00:00 00:00:00 RAZIUDDIN 273 Meth aiden 2021-06-07 2021-06-07 Outpatient EKERUO, [facility] [id number] [place] 00:00:00 00:00:00 MARY 787 Method i 2021-06-07 2021-06-07 Outpatient DAOURA, [facility] [id number] [place] 00:00:00 00:00:00 NILESH 546 Method i 2021-05-19 2021-05-26 Inpatient MATHIVANAN, [facility] [id number] [place] 00:00:00 00:00:00 COURTNEY 275 Method i 2021-05-12 2021-05-12 Outpatient AHMED, [facility] [id number] [place] 00:00:00 00:00:00 RAZIUDDIN 199 Meth aiden 2021-05-11 2021-05-11 Outpatient EKERUO, [facility] [id number] [place] 00:00:00 00:00:00 MARY 640 Method i 2021-05-06 2021-05-06 Outpatient EKERUO, [facility] [id number] [place] 00:00:00 00:00:00 MARY 435 Method i 2021-05-06 2021-05-06 Outpatient EKERUO, [facility] [id number] [place] 00:00:00 00:00:00 MARY 537 Method i 2021-05-03 2021-05-03 Outpatient EKERUO, [facility] [id number] [place] 00:00:00 00:00:00 MARY 709 Method i 2021-04-08 2021-04-21 Inpatient SOLIPURAM, [facility] 064 [id number] [place] 00:00:00 00:00:00 MICHELLE 685 Method i 2021-03-09 2021-03-09 Outpatient AHMED, [facility] [id number] [place] 00:00:00 00:00:00 RAZIUDDIN [address] 2021-02-24 2021-02-24 Outpatient [facility] [id number] Memoria 01:00:00 04:59:00 r Denis 58 l Petros Karen 2021-02-24 2021-02-24 Outpatient [facility]Flavo [facility] 3467 [id number] Memoria 01:00:00 04:59:00 r Denis 58 l Petros Karen 2021-02-23 2021-02-23 Outpatient AHMED, [facility] [id number] [facility] 20:00:00 23:59:00 RAZIUDDIN 2021-02-23 2021-02-23 Outpatient Ahmed, [facility] [id number] 20:00:00 23:59:00 Raziuddin 58 2021-02-10 2021-02-10 Outpatient AHMED, [facility] [id number] [place] 00:00:00 00:00:00 RAZIUDDIN 598 Meth aiden 2021-02-03 2021-02-08 Inpatient RADHAIVANAN, [facility] 064 [id number] [place] 00:00:00 00:00:00 COURTNEY 060 Method i 2021-01-20 2021-01-20 Outpatient [facility] [id number] [place] 00:00:00 00:00:00 470 Method i 2021-01-18 2021-01-19 Outpatient nullFlavo [facility] 3 [id number] Memoria 19:30:00 04:59:59 r Medicine 51 l Carrillo Zhang n 2021-01-18 2021-01-19 Outpatient nullFlavo [facility] 3 [id number] Memoria 19:30:00 04:59:59 r Medicine 51 l Vizcaino Vicente n 2021-01-18 2021-01-18 Outpatient Carrillo, MG MG [id number] 14:30:00 23:59:59 Antonella N 51 2021-01-18 2021-01-18 Outpatient [facility] MH[facility] [id number] Memoria 14:30:00 14:30:00 51 l Denis 2021-01-18 2021-01-18 Outpatient [facility] [id number] [place] 00:00:00 00:00:[address] 2021-01-14 2021-01-15 Between nullFlavo [facility] [id number] [id number] Memoria 13:38:03 13:38:03 Visit r Medicine 57 l Carrillo Zhang n 2021-01-14 2021-01-15 Between nullFlavo [facility] 3467 [id number] Memoria 13:38:03 13:38:03 Visit r Medicine 57 l Carrillo Zhang n 2021-01-14 2021-01-15 Outpatient [facility] MG [id number] 08:38:03 08:38:03 57 2021-01-12 2021-01-12 Outpatient JOSÉ LUISMED, [facility] [id number] [place] 00:00:00 00:00:00 RAZIUDDIN 554 Meth aiden 2020-12-31 2021-01-05 [id number] [place] 00:00:00 00:00:00 COURTNEY 541 Method i 2020-12-17 2020-12-28 Inpatient MARY ALICE [facility] Vidya [id number] [id number] [place] 00:00:00 00:00:00 COURTNEY 559 Method i 2020-10-11 2020-10-18 Inpatient MARY ALICE [facility] [id number] [id number] [place] 00:00:00 00:00:00 COURTNEY [address] 2020-09-15 2020-09-16 Outpatient nullFlavo [facility] 3 [id number] Memoria 16:30:00 05:59:59 r Medicine 50 l Carrillo Zhang n 2020-09-15 2020-09-16 Outpatient nullFlavo [facility] 3 [id number] Memoria 16:30:00 05:59:59 r Medicine 50 l Carrillo Zhang n 2020-09-15 2020-09-15 Outpatient Carrillo, [facility] [id number] 10:30:00 23:59:59 Antonella Davis 50 2020-09-15 2020-09-15 Outpatient MHIE MH[facility] [id number] Memoria 10:30:00 10:30:00 50 l Denis 2020 2020-09-07 Inpatient CHICO, [facility] [id number] [id number] [place] 00:00:00 00:00:00 MICHELLE 464 Method i 2020-08-13 2020-09-01 Inpatient CHICO, [facility] 012 [id number] [place] 00:00:00 00:00:00 MICHELLE 557 Method i 2020-08-13 2020-08-14 Outpt Diag nullFlavo [facility] [id number] Memoria 18:10:00 04:59:00 Services r Outpatient 06 l Imaging [place] Petros 2020-08-13 2020-08-14 Outpt Diag nullFlavo [facility] [id number] Memoria 18:10:00 04:59:00 Services r Outpatient 06 l Imaging Denis Petros 2020-08-13 2020-08-13 Outpatient Omarilorijoseluis, 29 [facility] [id number] 13:10:00 23:59:00 Tyrell Gaspar 2020-08-11 2020-08-12 Between nullFlavo [facility] Family [id number] Memoria 17:58:19 17:58:19 Visit r Medicine 56 l Carrillo davis 2020-08-11 2020-08-12 Between nullFlavo [facility] Family [id number] Memoria 17:58:19 17:58:19 Visit r Medicine 56 l Carrillo davis 2020-08-11 2020-08-12 Outpatient MG [facility] [id number] 12:58:19 12:58:19 56 2020-08-03 2020-08-04 Outpatient nullFlavo [facility] 3 [id number] Memoria 15:15:00 04:59:59 r Medicine 49 l Carrillo davis 2020-08-03 2020-08-04 Outpatient nullFlavo [facility] 3 [id number] Memoria 15:15:00 04:59:59 r Medicine 49 l Carrillo davis 2020-08-03 2020-08-03 Outpatient Carrillo, MG [facility] [id number] 10:15:00 23:59:59 Antonella Davis 49 2020-08-03 2020-08-03 Outpatient [facility] [id number] Memoria 10:15:00 10:15:00 49 l Denis 2020-06-22 2020-06-23 Outpt Diag nullFlavo [facility] [id number] Memoria 17:02:00 04:59:00 Services r Outpatient 05 l Imaging Denis Petros 2020-06-22 2020-06-23 Outpt Diag nullFlavo [facility] [id number] Memoria 17:02:00 04:59:00 Services r Outpatient 05 l Imaging Denis Petros 2020-06-22 2020-06-22 Outpatient Amilcar, MH[facility] [id number] 12:02:00 23:59:00 Tyrell N 05 2020-06-17 2020-06-17 Ambulatory nullFlavo [facility] [id number] Memoria 19:00:00 19:00:00 Pre-Reg r Nephrology 46 l Carrillo Zhang n 2020-06-17 2020-06-17 Ambulatory nullFlavo [facility] [id number] Memoria 19:00:00 19:00:00 Pre-Reg r Nephrology 46 l Carrillo Zhagn n 2020-06-17 2020-06-17 Outpatient MHIE IE [id number] Memoria 14:00:00 14:00:00 46 l [place] 2020-06-17 2020-06-17 Outpatient [facility] [id number] 14:00:00 14:00:00 Daca, 46 Valarie J 2020-06-10 2020-06-10 Outpatient MHIE IE [id number] Memoria 11:15:00 11:15:00 47 l [place] 2020-06-10 2020-06-10 Outpatient MHIE IE [id number] Memoria 11:15:00 11:15:00 47 l [place] 2020-06-02 2020-06-03 Outpatient nullFlavo [facility] [id number] Memoria 19:45:00 04:59:59 r Nephrology 48 l Carrillo Zhang n 2020-06-02 2020-06-03 Outpatient nullFlavo [facility] [id number] Memoria 19:45:00 04:59:59 r Nephrology 48 l Carrillo Zhang n 2020-06-02 2020-06-[address] [facility] [facility] [id number] 14:45:00 23:59:59 Daca, 48 Valarie J 2020-06-02 2020-06-02 Outpatient MH[facility] IE [id number] Memoria 14:45:00 14:45:00 48 leonard Denis 2020-05-20 2020-05-20 Outpatient RACHID, [facility] [id number] [place] 00:00:00 00:00:00 FABIOLA [address] 2020-03-23 2020-03-25 Phone nullFlavo MG [id number] Memoria 16:17:50 04:59:59 Message r Nephrology 12 leonard Zhang ryan 2020-03-23 2020-03-25 Phone nullFlavo MG [id number] Memoria 16:17:50 04:59:59 Message r Nephrology 12 leonard Zhang ryan 2020-03-23 2020-03-24 Outpatient [facility] MG [id number] 11:17:50 23:59:59 12 2020-03-18 2020-03-19 [place] [id number] Memoria 19:00:00 04:59:59 r Nephrology 41 leonard Zhang ryan 2020-03-18 2020-03-19 [place] [id number] Memoria 19:00:00 04:59:59 r Nephrology 41 l Carrillo Zhang ryan 2020-03-18 2020-03-18 Outpatient [place]- MG MG [id number] 14:00:00 23:59:59 Daca, 41 Valarie Carballo 2020-03-18 2020-03-18 Outpatient [facility] IE [id number] Memoria 14:00:00 14:00:00 41 leonard Denis 2020-03-08 2020-03-10 Phone nullFlavo MG [id number] Memoria 18:35:51 04:59:59 Message r Nephrology 11 leonard Watson Denis 2020-03-08 2020-03-10 Phone nullFlavo MG [id number] Memoria 18:35:51 04:59:59 Message r Nephrology 11 leonard Watson Denis 2020-03-08 2020-03-09 Outpatient [facility] MG [id number] 13:35:51 23:59:59 11 2020-02-11 2020-02-12 Outpatient nullFlavo [facility] Family 3 [id number] Memoria 15:15:00 04:59:59 r Medicine 45 l Carrillo Zhang ryan 2020-02-11 2020-02-12 Outpatient nullFlavo [facility] 3 [id number] Memoria 15:15:00 04:59:59 r Medicine 45 leonard Zhang n 2020-02-11 2020-02-11 Outpatient Carrillo, [facility] MG [id number] 10:15:00 23:59:59 Antonella N 45 2020-02-11 2020-02-11 Ambulatory nullFlavo [facility] 3 [id number] Memoria 15:15:00 15:15:00 Pre-Reg r Medicine 44 l Carrillo Zhang n 2020-02-11 2020-02-11 Ambulatory nullFlavo [facility] 3 [id number] Memoria 15:15:00 15:15:00 Pre-Reg r Medicine 44 leonard davis 2020-02-11 2020-02-11 Outpatient MH[facility] IE [id number] Memoria 10:15:00 10:15:00 45 leonard Denis 2020-02-11 2020-02-11 Outpatient MHIE IE [id number] Memoria 10:15:00 10:15:00 44 leonard Denis 2020-02-11 2020-02-11 Outpatient Carrillo, MG [facility] [id number] 10:15:00 10:15:00 Antonella N 44 2020-02-05 2020-02-07 Phone nullFlavo MG [id number] Memoria 13:23:32 04:59:59 Message r Nephrology 10 leonard davis 2020-02-05 2020-02-07 Phone nullFlavo MG [id number] Memoria 13:23:32 04:59:59 Message r Nephrology 10 leonard davis 2020-02-05 2020-02-06 Outpatient MG MG [id number] 08:23:32 23:59:59 10 2020-02-05 2020-02-06 Between nullFlavo [facility] Family [id number] Memoria 14:14:54 14:14:54 Visit r Medicine 52 l Carrillo Zhang ryan 2020-02-05 2020-02-06 Between nullFlavo [facility] [id number] Memoria 14:14:54 14:14:54 Visit r Medicine 52 leonard Zhang ryan 2020-02-05 2020-02-06 Outpatient MG MG [id number] 09:14:54 09:14:54 52 2020-02-05 2020-02-05 Outpatient MHIE IE [id number] Memoria 11:30:00 11:30:00 43 leonard Denis 2020-02-05 2020-02-05 Outpatient MHIE MHIE [id number] Memoria 11:30:00 11:30:00 43 leonard Barrios 2020-02-02 2020-02-04 Phone nullFlavo [facility] Family [id number] Memoria 20:00:15 04:59:59 Message r Medicine 09 leonard Zhang ryan 2020-02-02 2020-02-04 Phone nullFlavo [facility] Family [id number] Memoria 20:00:15 04:59:59 Message r Medicine 09 leonard Zhang ryan 2020-02-02 2020-02-03 Outpatient [facility] MG [id number] 15:00:15 23:59:59 09 2020-01-30 2020-02-01 Phone nullFlavo [facility] Family 3467 [id number] Memoria 17:18:28 04:59:59 Message r Medicine 08 leonard Zhang ryan 2020-01-30 2020-02-01 Phone nullFlavo [facility] Family [id number] Memoria 17:18:28 04:59:59 Message r Medicine 08 leonard Zhang ryan 2020-01-30 2020-02-01 Phone nullFlavo [facility] [id number] Memoria 13:26:55 04:59:59 Message r Nephrology 07 leonard Zhang ryan 2020-01-30 2020-02-01 Phone nullFlavo MG [id number] Memoria 13:26:55 04:59:59 Message r Nephrology 07 leonadr Zhang ryan 2020-01-30 2020-01-31 Outpatient [facility] MG [id number] 12:18:28 23:59:59 08 2020-01-30 2020-01-31 Outpatient [facility] MG [id number] 08:26:55 23:59:59 07 2019-12-16 2019-12-17 Outpatient nullFlavo [facility] Family 3 [id number] Memoria 20:15:00 05:59:59 r Medicine 42 l Carrillo Zhang ryan 2019-12-16 2019-12-17 Outpatient nullFlavo [facility] Family 3 [id number] Memoria 20:15:00 05:59:59 r Medicine 42 l Vizcaino Vicente n 2019-12-16 2019-12-16 Outpatient Carrillo, MG [facility] [id number] 14:15:00 23:59:59 Antonella Davis 42 2019-12-16 2019-12-16 Outpatient [facility] [id number] Memoria 14:15:00 14:15:00 42 leonard Barrios 2019-11-13 2019-11-15 Phone nullFlavo [facility] Family [id number] Memoria 14:22:27 05:59:59 Message r Medicine 06 leonard davis 2019-11-13 2019-11-15 Phone nullFlavo [facility] Family 3467 [id number] Memoria 14:22:27 05:59:59 Message r Medicine 06 leonard davis 2019-11-13 2019-11-14 Outpatient MG [facility] [id number] 08:22:27 23:59:59 06 2019-10-17 2019-10-19 Phone nullFlavo [facility] Family [id number] Memoria 16:06:04 05:59:59 Message r Medicine 05 leonard davis 2019-10-17 2019-10-19 Phone nullFlavo [facility] Family 3467 [id number] Memoria 16:06:04 05:59:59 Message r Medicine 05 leonard davis 2019-10-17 2019-10-18 Outpatient MG [facility] [id number] 10:06:04 23:59:59 05 2019-10-02 2019-10-03 Between nullFlavo [facility] [id number] Memoria 20:05:03 20:05:03 Visit r Nephrology 45 l Walter Rameyann 2019-10-02 2019-10-03 Between nullFlavo [facility] [id number] Memoria 20:05:03 20:05:03 Visit r Nephrology 45 l Walter Barrios 2019-10-02 2019-10-03 Outpatient MG [facility] [id number] 14:05:03 14:05:03 45 2019-10-02 2019-10-03 Outpatient nullFlavo [facility] [id number] Memoria 20:45:00 05:59:59 r Nephrology 38 l Carrillo Zahng ryan 2019-10-02 2019-10-03 Outpatient nullFlavo [facility] [id number] Memoria 20:45:00 05:59:59 r Nephrology 38 leonard Zhang ryan 2019-10-02 2019-10-02 Outpatient Vinnie- MG MG [id number] 14:45:00 23:59:59 PeeNoel pizarro 2019-10-02 2019-10-02 Outpatient MHIE [facility] [id number] Memoria 14:45:00 14:45:00 38 leonard Denis 2019-09-26 2019-09-27 Between nullFlavo MG [id number] Memoria 00:07:10 00:07:10 Visit r Nephrology 43 leonard Barrios 2019-09-26 2019-09-27 Between nullFlavo [facility] [id number] Memoria 00:07:10 00:07:10 Visit r Nephrology 43 leonard Barrios 2019-09-25 2019-09-26 Outpatient MG MG [id number] 18:07:10 18:07:10 43 2019-09-25 2019-09-25 Outpatient MHIE IE [id number] Memoria 09:00:00 09:00:00 39 leonard Barrios 2019-09-25 2019-09-25 Outpatient MHIE MHIE [id number] Memoria 09:00:00 09:00:00 39 leonard Denis 2019-09-16 2019-09-17 Between nullFlavo [facility] [id number] Memoria 21:47:12 21:47:12 Visit r Medicine 41 leonard Zhang ryan 2019-09-16 2019-09-17 Between nullFlavo [facility] [id number] Memoria 21:47:12 21:47:12 Visit r Medicine 41 leonard Zhang ryan 2019-09-16 2019-09-17 Outpatient MG MG [id number] 15:47:12 15:47:12 41 2019-08-19 2019-08-20 Between nullFlavo [facility] Family [id number] Memoria 22:13:13 22:13:13 Visit r Medicine 41 leonard Zhang ryan 2019-08-19 2019-08-20 Between nullFlavo [facility] Family [id number] Memoria 22:13:13 22:13:13 Visit r Medicine 41 leonard Rameycora davis 2019-08-19 2019-08-20 Outpatient MHMG MG [id number] 17:13:13 17:13:13 41 2019-08-15 2019-08-16 Outpatient nullFlavo [facility] Family 3 [id number] Memoria 14:45:00 04:59:59 r Medicine 41 leonard Zhang n 2019-08-15 2019-08-16 Outpatient nullFlavo [facility] Family 3 [id number] Memoria 14:45:00 04:59:59 r Medicine 41 leonard Zhang n 2019-08-15 2019-08-15 Outpatient Carrillo, MHMG MG [id number] 09:45:00 23:59:59 Antonella N 40 2019-08-15 2019-08-15 Outpatient MHIE MHIE [id number] Memoria 09:45:00 09:45:00 41 leonard Denis 2019-08-07 2019-08-07 Ambulatory nullFlavo [facility] Family 3 [id number] Memoria 16:00:00 16:00:00 Pre-Reg r Medicine 37 leonard Zhang n 2019-08-07 2019-08-07 Ambulatory nullFlavo [facility] Family 3 [id number] Memoria 16:00:00 16:00:00 Pre-Reg r Medicine 37 leonard Zhang n 2019-08-07 2019-08-07 Outpatient MHIE MHIE [id number] Memoria 11:00:00 11:00:00 37 leonard Denis 2019-08-07 2019-08-07 Outpatient Carrillo, MG MG [id number] 11:00:00 11:00:00 Antonella N 36 2019-07-31 2019-08-01 [place] [id number] Memoria 15:00:00 04:59:59 r Nephrology 36 leonard Zhang n 2019-07-31 2019-08-01 [place] [id number] Memoria 15:00:00 04:59:59 r Nephrology 36 leonard Zhang n 2019-07-31 2019-07-31 Outpatient Carrillo, MHMG MG [id number] 10:00:00 23:59:59 Antonella N 35 2019-07-31 2019-07-31 Outpatient MHIE MHIE [id number] Memoria 12:00:00 12:00:00 38 leonard Barrios 2019-07-31 2019-07-31 Outpatient IE IE [id number] Memoria 12:00:00 12:00:00 38 leonard Denis 2019-07-31 2019-07-31 Outpatient IE IE [id number] Memoria 10:00:00 10:00:00 36 leonadr Barrios 2019-07-03 2019-07-05 Phone nullFlavo [facility] Family [id number] Memoria 15:15:06 04:59:59 Message r Medicine 04 leonard Zhang n 2019-07-03 2019-07-05 Phone nullFlavo [facility] Family [id number] Memoria 15:15:06 04:59:59 Message r Medicine 04 leonard davis 2019-07-03 2019-07-05 Phone nullFlavo MG [id number] Memoria 15:10:51 04:59:59 Message r Nephrology 03 leonard davis 2019-07-03 2019-07-05 Phone nullFlavo MG [id number] Memoria 15:10:51 04:59:59 Message r Nephrology 4 leonard davis 2019-07-03 2019-07-04 Outpatient MG MG [id number] 10:15:06 23:59:59 04 2019-07-03 2019-07-04 Outpatient MG MG [id number] 10:10:51 23:59:59 03 2019-07-03 2019-07-03 [place] [id number] Memoria 20:00:00 20:00:00 Pre-Reg r Nephrology 34 leonard Zhang ryan 2019-07-03 2019-07-03 [place] [id number] Memoria 20:00:00 20:00:00 Pre-Reg r Nephrology 34 leonard Zhang ryan 2019-07-03 2019-07-03 Outpatient IE IE [id number] Memoria 15:00:00 15:00:00 34 leonard Barrios 2019-07-03 2019-07-03 Outpatient Vinnie- MG MG [id number] 15:00:00 15:00:00 Angela Toledo 2019-06-29 2019-06-30 Between nullFlavo MG [id number] Memoria 20:15:16 20:15:16 Visit r Nephrology 34 leonard Barrios 2019-06-29 2019-06-30 Between nullFlavo MG [id number] Memoria 20:15:16 20:15:16 Visit r Nephrology 34 leonard Barrios 2019-06-29 2019-06-30 Outpatient MHMG [facility] [id number] 15:15:16 15:15:16 34 2019-06-11 2019-06-13 Phone nullFlavo MG [id number] Memoria 15:29:54 04:59:59 Message r Nephrology 02 lenoard Barrios 2019-06-11 2019-06-13 Phone nullFlavo MG [id number] Memoria 15:29:54 04:59:59 Message r Nephrology 02 leonard Barrios 2019-06-11 2019-06-12 Outpatient [facility] [id number] 10:29:54 23:59:59 02 2019-06-12 2019-06-12 [place] [id number] Memoria 16:30:00 16:30:00 Pre-Reg r Nephrology 29 l Carrillo davis 2019-06-12 2019-06-12 [place] [id number] Memoria 16:30:00 16:30:00 Pre-Reg r Nephrology 29 l Carrilol davis 2019-06-12 2019-06-12 [place] [id number] Memoria 16:15:00 16:15:00 Pre-Reg r Nephrology 30 l Carrillo davis 2019-06-12 2019-06-12 [place] [id number] Memoria 16:15:00 16:15:00 Pre-Reg r Nephrology 30 l Carrillo davis 2019-06-12 2019-06-12 Ambulatory nullFlavo MG Family 3 [id number] Memoria 15:15:00 15:15:00 Pre-Reg r Medicine 31 leonard Zhang n 2019-06-12 2019-06-12 Ambulatory nullFlavo MHMG Family 3 [id number] Memoria 15:15:00 15:15:00 Pre-Reg r Medicine 31 leonard Zhang n 2019-06-12 2019-06-12 Outpatient [facility] [id number] Memoria 11:30:00 11:30:00 29 l [place] 2019-06-12 2019-06-12 Outpatient Baranonima- MG MHMG [id number] 11:30:00 11:30:00 Otis Toledo 2019-06-12 2019-06-12 Outpatient MHIE MHIE [id number] Memoria 11:15:00 11:15:00 30 leonard [place] 2019-06-12 2019-06-12 Outpatient Baranowskylee- MG MHMG [id number] 11:15:00 11:15:00 Bob Toledo 2019-06-12 2019-06-12 Outpatient MHIE MHIE [id number] Memoria 10:15:00 10:15:00 31 leonard [place] 2019-06-12 2019-06-12 Outpatient Michael, MG MHMG [id number] 10:15:00 10:15:00 Antonella Davis 2019-06-09 2019-06-10 Inpatient Chelsea BARRAGAN, [facility] TELE [id number] [place] 10:05:00 17:55:00 EDUIN [facility] 2019-05-12 2019-05-14 Outpatient Chelsea BARRAGAN, [facility] TELE [id number] [place] 21:36:00 19:00:00 EDUIN Medica [facility] 2019-05-12 2019-05-13 Outpatient nullFlavo MH Urgent [id number] Memoria 20:40:00 04:59:[address] [facility] 2019-05-12 2019-05-13 Outpatient nullFlavo MH Urgent [id number] Memoria 20:40:00 04:59:59 r Care 33 l Alle[place]y [place] 2019-05-12 2019-05-12 Outpatient Van MHMG MHMG [id number] 15:40:00 23:59:59 Carlito Farias 2019-05-12 2019-05-12 Outpatient MHIE MHIE [id number] Memoria 15:40:00 15:40:00 33 l Denis 2019-03-27 2019-03-28 Outpatient nullFlavo MHMG Family 3 [id number] Memoria 15:15:00 04:59:59 r Medicine 32 l Carrillo davis 2019-03-27 2019-03-28 Outpatient nullFlavo MHMG Family 3 [id number] Memoria 15:15:00 04:59:59 r Medicine 32 leonard Zhang ryan 2019-03-27 2019-03-27 Outpatient Vinnie- MG [facility] [id number] 10:15:00 23:59:59 Philly Toledo 2019-03-27 2019-03-27 [facility] [id number] Memoria 10:15:00 10:15:00 32 leonard Denis 2019-01-05 2019-01-06 Between nullFlavo MG Family [id number] Memoria 19:00:16 19:00:16 Visit r Medicine 29 leonard Zhang ryan 2019-01-05 2019-01-06 Between nullFlavo MG Family [id number] Memoria 19:00:16 19:00:16 Visit r Medicine 29 l Carrillo Zhang ryan 2019-01-05 2019-01-06 Outpatient [facility] [id number] 14:00:16 14:00:16 29 2019-01-02 2019-01-03 Between nullFlavo MG [id number] Memoria 15:02:37 15:02:37 Visit r Nephrology 27 leonard Zhang ryan 2019-01-02 2019-01-03 Between nullFlavo MG [id number] Memoria 15:02:37 15:02:37 Visit r Nephrology 27 leonard Zhang ryan 2019-01-02 2019-01-03 Outpatient MG [facility] [id number] 10:02:37 10:02:37 27 2019-01-02 2019-01-03 [place] [id number] Memoria 18:45:00 04:59:59 r Nephrology 28 leonard Zhang ryan 2019-01-02 2019-01-03 [place] [id number] Memoria 18:45:00 04:59:59 r Nephrology 28 leonard Zhang ryan 2019-01-02 2019-01-03 Outpatient nullFlavo MG Family 3 [id number] Memoria 14:15:00 04:59:59 r Medicine 22 l Carrillo Zhang ryan 2019-01-02 2019-01-03 Outpatient nullFlavo MG Family 3 [id number] Memoria 14:15:00 04:59:59 r Medicine 22 l Vizcaino Vicente ryan 2019-01-02 2019-01-02 [id number] 13:45:00 23:59:59 PeeReynold pizarro Valarie J 2019-01-02 2019-01-02 [facility] [id number] 09:15:00 23:59:59 Antonella Davis 22 2019-01-02 2019-01-02 Outpatient IE IE [id number] Memoria 13:45:00 13:45:00 28 leonard Denis 2019-01-02 2019-01-02 Outpatient IE IE [id number] Memoria 09:15:00 09:15:00 22 leonard Denis 2018-12-31 2019-01-01 Between nullFlavo MG [id number] Memoria 23:59:47 23:59:47 Visit r Nephrology 26 leonard Zhang ryan 2018-12-31 2019-01-01 Between nullFlavo MG [id number] Memoria 23:59:47 23:59:47 Visit r Nephrology 26 leonard Zhang ryan 2018-12-31 2019-01-[address] [facility] [id number] 18:59:47 18:59:47 26 2018-12-27 2018-12-28 Between nullFlavo MG [id number] Memoria 22:00:33 22:00:33 Visit r Nephrology 24 leonard Zhang ryan 2018-12-27 2018-12-28 Between nullFlavo MG [id number] Memoria 22:00:33 22:00:33 Visit r Nephrology 24 leonard Zhang ryan 2018-12-27 2018-12-[address] [facility] [id number] 16:00:33 16:00:33 24 2018-12-27 2018-12-28 Between nullFlavo MG [id number] Memoria 04:48:44 04:48:44 Visit r Nephrology 23 leonard Zhang ryan 2018-12-27 2018-12-28 Between nullFlavo MG [id number] Memoria 04:48:44 04:48:44 Visit r Nephrology 23 leonard Vizcaino Vicente davis 2018-12-26 2018-12-[address] [facility] [id number] 22:48:44 22:48:44 23 2018-11-14 2018-11-14 Ambulatory nullFlavo MHMG [id number] Memoria 20:30:00 20:30:00 Pre-Reg r Nephrology 27 leonard davis 2018-11-14 2018-11-14 Ambulatory nullFlavo MHMG [id number] Memoria 20:30:00 20:30:00 Pre-Reg r Nephrology 27 leonard davis 2018-11-14 2018-11-14 Ambulatory nullFlavo MHMG [id number] Memoria 18:40:00 18:40:00 Pre-Reg r Nephrology 24 leonard davis 2018-11-14 2018-11-14 [place] [id number] Memoria 18:40:00 18:40:00 Pre-Reg r Nephrology 24 leonard davis 2018-11-14 2018-11-14 Outpatient MHIE MHIE [id number] Memoria 14:30:00 14:30:00 Cordell Barrios 2018-11-14 2018-11-14 Outpatient Baranowska- MHMG MHMG [id number] 14:30:00 14:30:00 ParisCordell Valarie Haris 2018-11-14 2018-11-14 Outpatient Baranowska- MHMG MHMG [id number] 14:30:00 14:30:00 Paris Cordell Valarie Haris 2018-11-14 2018-11-14 Outpatient MHIE MHIE [id number] Memoria 12:40:00 12:40:00 24 leonard Barrios 2018-11-14 2018-11-14 Outpatient Baranowska- MHMG MHMG [id number] 12:40:00 12:40:00 Paris Yesi Valarie Haris 2018-11-14 2018-11-14 Outpatient Baranowska- MHMG MHMG [id number] 12:40:00 12:40:00 ParisYesi Valarie Haris 2018-11-07 2018-11-07 [place] [id number] Memoria 15:30:00 15:30:00 Pre-Reg r Internal 25 leonard Vizcaino 2018-11-07 2018-11-07 Ambulatory nullFlavo MHMG [id number] Memoria 15:30:00 15:30:00 Pre-Reg r Internal 25 Narayan Postberg 2018-11-07 2018-11-07 Outpatient IE IE [id number] Memoria 09:30:00 09:30:00 25 leonard Barrios 2018-11-07 2018-11-07 Outpatient MG MG [id number] 09:30:00 09:30:00 25 2018-07-11 2018-08-10 [place] [id number] Memoria 12:45:00 12:45:00 Pre-Reg r Internal 23 [facility] Denis Postberg 2018-07-11 2018-08-10 [place] [id number] Memoria 12:45:00 12:45:00 Pre-Reg r Internal 23 [facility] Denis Postberg 2018-07-11 2018-08-10 Outpatient MG MG [id number] 07:45:00 07:45:00 2018-07-18 2018-07-19 [place] [id number] Memoria 19:15:00 04:59:59 r Nephrology 26 leonard davis 2018-07-18 2018-07-19 [place] [id number] Memoria 19:15:00 04:59:59 r Nephrology 26 leonard davis 2018-07-18 2018-07-19 [place] [id number] Memoria 18:00:00 04:59:59 r Nephrology 21 leonard davis 2018-07-18 2018-07-19 [place] [id number] Memoria 18:00:00 04:59:59 r Nephrology 21 leonard Zhang ryan 2018-07-18 2018-07-18 Outpatient Baranowska- MG MG [id number] 14:15:00 23:59:59 Daca, Kim Valarie Carballo 2018-07-18 2018-07-18 Outpatient Baranowska- MHMG MG [id number] 13:00:00 23:59:59 Dacmoira Akosua Valarie Carballo 2018-07-18 2018-07-18 Outpatient MHIE IE [id number] Memoria 14:15:00 14:15:00 26 leonard Denis 2018-07-18 2018-07-18 Outpatient MHIE MHIE [id number] Memoria 13:00:00 13:00:00 21 leonard Denis 2018-07-11 2018-07-11 Outpatient IE IE [id number] Memoria 07:45:00 07:45:00 23 leonard Denis 2018-06-11 2018-06-12 Outpatient nullFlavo MG Family 3 [id number] Memoria 18:30:00 04:59:59 r Medicine 20 l Carrillo Zhang n 2018-06-11 2018-06-12 Outpatient nullFlavo MG Family 3 [id number] Memoria 18:30:00 04:59:59 r Medicine 20 l Carrillo Zhang n 2018-06-11 2018-06-11 Outpatient Carrillo, MG MG [id number] 13:30:00 23:59:59 Antonella Davis 20 2018-06-11 2018-06-11 Outpatient MHIE IE [id number] Memoria 13:30:00 13:30:00 20 leonard Denis 2018-01-10 2018-01-11 [place] [id number] Memoria 16:00:00 04:59:59 r Nephrology 19 l Carrillo Zhang ryan 2018-01-10 2018-01-11 [place] [id number] Memoria 16:00:00 04:59:59 r Nephrology 19 leonard Zhang ryan 2018-01-10 2018-01-10 Outpatient Baranowska- MG MG [id number] 11:00:00 23:59:59 Daca, Ludivina Carballo 2018-01-10 2018-01-10 Outpatient Baranowska- MG MG [id number] 11:00:00 23:59:59 Daca, 19 Valarie Carballo 2018-01-10 2018-01-10 Outpatient IE IE [id number] Memoria 11:00:00 11:00:00 19 leonard Denis 2018-01-09 2018-01-10 Outpatient nullFlavo MG Family 3 [id number] Memoria 15:00:00 04:59:59 r Medicine 18 l Carrillo Zhang ryan 2018-01-09 2018-01-10 Outpatient nullFlavo MG Family 3 [id number] Memoria 15:00:00 04:59:59 r Medicine 18 l Carrillo Zhang n 2018-01-09 2018-01-09 Outpatient Carrillo, MHMG MHMG [id number] 10:00:00 23:59:59 Antonella N 18 2018-01-09 2018-01-09 Outpatient Carrillo, MHMG MHMG [id number] 10:00:00 23:59:59 Antonella N 18 2018-01-09 2018-01-09 Outpatient MHIE MHIE [id number] Memoria 10:00:00 10:00:00 18 leonard Barrios 2017-07-19 2017-07-19 Outpatient MHIE MHIE [id number] Memoria 10:40:00 10:40:00 16 leonard Barrios 2017-07-19 2017-07-19 Outpatient MHIE MHIE [id number] Memoria 10:40:00 10:40:00 16 leonard Barrios 2017-06-27 2017-06-27 Outpatient MHIE MHIE [id number] Memoria 11:30:00 11:30:00 17 leonard Barrios 2017-06-27 2017-06-27 Outpatient MHIE MHIE [id number] Memoria 11:30:00 11:30:00 17 leonard Barrios 2017-03-01 2017-03-01 Outpatient MHIE MHIE [id number] Memoria 11:40:00 11:40:00 11 leonard Barrios 2017-03-01 2017-03-01 Outpatient MHIE MHIE [id number] Memoria 11:40:00 11:40:00 11 leonard Barrios 2016-12-26 2016-12-26 Outpatient MHIE MHIE [id number] Memoria 14:30:00 14:30:00 15 leonard Barrios 2016-12-26 2016-12-26 Outpatient MHIE MHIE [id number] Memoria 14:30:00 14:30:00 15 leonard Barrios 2016-11-27 2016-11-27 Outpatient MHIE MHIE [id number] Memoria 10:00:00 10:00:00 08 leonard Barrios 2016-11-27 2016-11-27 Outpatient MHIE MHIE [id number] Memoria 10:00:00 10:00:00 08 leonard Barrios 2016-11-17 2016-11-17 Bedded [facility] [id number] Memoria 11:48:35 14:30:00 Outpatient connie Denis 13 leonard Jones nn 2016-11-17 2016-11-17 Bedded [facility] [id number] Memoria 11:48:35 14:30:00 Outpatient connie Barrios 13 leonard Jones nn 2016-11-17 2016-11-17 [place] [id number] 05:48:35 08:30:00 Reinaldo Ware 2016-11-09 2016-11-09 Outpatient MHIE MHIE [id number] Memoria 13:15:00 13:15:00 14 leonard Barrios 2016-11-09 2016-11-09 Outpatient MHIE MHIE [id number] Memoria 13:15:00 13:15:00 14 leonard Barrios 2016-10-18 2016-10-18 Outpatient MHIE MHIE [id number] Memoria 09:30:00 09:30:00 12 leonard Barrios 2016-10-18 2016-10-18 Outpatient MHIE MHIE [id number] Memoria 09:30:00 09:30:00 13 leonard Barrios 2016-10-18 2016-10-18 Outpatient MHIE MHIE [id number] Memoria 09:30:00 09:30:00 12 leonard Barrios 2016-10-18 2016-10-18 Outpatient MHIE MHIE [id number] Memoria 09:30:00 09:30:00 13 leonard Barrios 2016-10-12 2016-10-12 Outpatient MHIE MHIE [id number] Memoria 10:20:00 10:20:00 09 leonard Barrios 2016-10-12 2016-10-12 Outpatient MHIE MHIE [id number] Memoria 10:20:00 10:20:00 09 leonard Barrios 2016-07-13 2016-07-13 Outpatient MHIE MHIE [id number] Memoria 13:00:00 13:00:00 04 leonard Barrios 2016-07-13 2016-07-13 Outpatient MHIE MHIE [id number] Memoria 13:00:00 13:00:00 04 leonard Barrios 2016-05-24 2016-05-24 Outpatient MHIE MHIE [id number] Memoria 11:15:00 11:15:00 06 leonard Barrios 2016-05-24 2016-05-24 Outpatient MHIE MHIE [id number] Memoria 11:15:00 11:15:00 06 leonard Barrios 2016-04-13 2016-05-[address] [facility] [id number] Memoria 13:00:00 04:59:00 Patients connie Barrios 2016-04-13 2016-05-[address] [facility] [id number] Memoria 13:00:00 04:59:00 Patients connie Stout 03 leonard Barrios 2016-04-13 2016-05-12 Outpatient Johnson, 2.16.840. 2.16.840.1. 3 [id number] 08:00:00 23:59:00 Jose Francisco M [id number] 3.615.55 5.55 2016-03-14 2016-04-[address] [facility] [id number] Memoria 17:39:00 04:59:00 Patients connie Barrios 2016-03-14 2016-04-[address] [facility] [id number] Memoria 17:39:00 04:59:00 Patients connie Barrios 2016-03-14 2016-04-12 Outpatient Johnson, 2.16.840. 2.16.840.1. 3 [id number] 12:39:00 23:59:00 Jose Francisco M [id number] 3.615.55 5.55 2016-03-09 2016-04-[address] [facility] Sugar [id number] Memoria 19:00:00 04:59:00 Patients r Tao leonard Barrios 2016-03-09 2016-04-08 OP Therapy nullFlavo SMR Sugar [id number] Memoria 19:00:00 04:59:00 Patients r Tao leonard Barrios 2016-03-09 2016-04-07 Outpatient Johnson, 2.16.840. 2.16.840.1. 3 [id number] 14:00:00 23:59:00 Jose Francisco M [id number] 3.615.69 5.69 2016-03-13 2016-03-14 Outpt Diag nullFlavo [facility] [id number] Memoria 16:14:00 04:59:00 Services r Outpatient 04 l Imaging Denis [place] 2016-03-13 2016-03-14 Outpt Diag nullFlavo [facility] [id number] Memoria 16:14:00 04:59:00 Services r Outpatient 04 l Imaging Denis [place] 2016-03-13 2016-03-[address] [id number] 11:14:00 23:59:00 Jv [place] 2016-02-08 2016-03-09 OP Therapy nullFlavo [facility] Sugar [id number] Memoria 19:00:00 04:59:00 Patients r [facility] 00 leonard Barrios 2016-02-08 2016-03-09 OP Therapy nullFlavo S[facility] Sugar [id number] Memoria 19:00:00 04:59:00 Patients r [facility] 00 leonard [place] 2016-02-08 2016-03-08 Outpatient Johnson, 2.16.840. 2.16.840.1. 3 [id number] 14:00:00 23:59:00 Jose Francisco Blackburn [id number] 3.615.69 5.69 2016-03-02 2016-03-02 Outpatient MHIE IE [id number] Memoria 10:20:00 10:20:00 01 leonard Barrios 2016-03-02 2016-03-02 Outpatient MHIE MHIE [id number] Memoria 10:20:00 10:20:00 01 leonard Barrios 2016-02-29 2016-03-01 Outpt Diag nullFlavo [facility] [id number] Memoria 14:59:00 04:59:00 Services r Outpatient 03 l Imaging Denis [place]oto 2016-02-29 2016-03-01 Outpt Diag nullFlavo [facility] [id number] Memoria 14:59:00 04:59:00 Services r Outpatient 03 l Kota Soto 2016-02-29 2016-02-29 Outpatient Marsha Lazo [id number] 09:59:00 23:59:00 [place] 03 2016-01-20 2016-01-21 Outpt Diag nullFlavo [facility] [id number] Memoria 18:11:00 04:59:00 Services r Outpatient 01 l Imaging Denis [place] 2016-01-20 2016-01-21 Outpt Diag nullFlavo [facility] [id number] Memoria 18:11:00 04:59:00 Services r Outpatient 01 l Imaging Denis [place] 2016-01-20 2016-01-20 Outpatient Marsha Lazo [id number] 13:11:00 23:59:00 [place] 01 2015-12-30 2015-12-30 Outpatient 2.16.840. 2.16.840.1. 3 [id number] Memoria 12:50:31 19:25:00 [id number]. [id number] 3.2081.20 81.2000 Vicente n [facility] 2015-12-30 2015-12-30 Outpatient nullFlavo [facility] [id number] Memoria 12:50:31 19:25:00 r leonard Barrios 2015-12-30 2015-12-30 Outpatient nullFlavo [facility] [id number] Memoria 12:50:31 19:25:00 r leonard Barrios 2015-11-30 2015-12-01 Outpt Diag nullFlavo [facility] [id number] Memoria 12:58:00 05:59:00 Services r Outpatient 00 l Imaging Denis Petros 2015-11-30 2015-12-01 Outpt Diag nullFlavo [facility] [id number] Memoria 12:58:00 05:59:00 Services r Outpatient 00 l Imaging Denis Petros 2015-11-30 2015-11-30 Outpatient Marsha Lazo 29 [id number] [id number] 06:58:00 23:59:00 [place] 2015-11-19 2015-11-19 Outpatient MHIE MHIE [id number] Memoria 10:15:00 10:15:00 02 leonard Barrios 2015-11-19 2015-11-19 Outpatient MHIE MHIE [id number] Memoria 10:15:00 10:15:00 02 leonard Barrios 2015-09-02 2015-09-02 Outpatient MHIE MHIE [id number] Memoria 11:30:00 11:30:00 00 leonard Barrios 2015-09-02 2015-09-02 Outpatient MHIE MHIE [id number] Memoria 11:30:00 11:30:00 00 leonard Barrios 2013-12-18 2013-12-18 [facility] [id number] Memoria 01:16:00 05:59:00 r Denis [id number] l Petros 1 [facility] 2013-12-18 2013-12-18 Outpatient nullFlavo [facility] [id number] Memoria 01:16:00 05:59:00 r Denis [id number] l Petros 1 [facility] 2013-12-17 2013-12-17 Outpatient [facility] 2.16.840. 2.16.840. 1. [id number] 19:16:00 23:59:00 , Yusef [id number]. [id number] Bernadette 3.615.0.1 5.0.342 92 5716-02-26 2013-12-17 Outpatient nullFlavo [id number] Memoria 19:16:00 19:16:00 [place] 01 l [place] 2013-12-17 2013-12-17 Outpatient nullFlavo [id number] Memoria 19:16:00 19:16:00 r [place] 01 l [place] 2013-12-02 2013-12-02 Outpatient nullFlavo [id number] Memoria 19:43:00 19:43:00 r [place] 00 l [place] 2013-12-02 2013-12-02 [facility] [id number] Memoria 19:43:00 19:43:00 r [place] 00 l Denis Results Test Description Test Time Test Comments Results Result Sour e Comments PET/CT, CARDIAC 2022-09-26 Reason for PERF REST AND 16:05:00 exam:->angina STRESS [facility] CENTERName: FREDDIE SAUCEDORALF : 1955 Sex: F FINAL REPORT PROCEDURE: MYOCARDIAL PERFUSION PET/CT IMAGING (Rest/Stress)CPT CODE: 94029 INDICATION: Evaluation for chest pain CARDIOVASCULAR PROFILE:CAD [...] prior study for comparison. Signed: Corbin Casper [facility] Verified Date/Time: 09/26/2022 16:05:42 C METABOLIC [...] s not applicable for dialysis will moseley Benefits Advisor ID - MARCOSpecimen slightly [id number] 05:55:08 Test Item Value Reference Range Interpretation Comments MAGNESIUM (BEAKER) 1.9 mg/dL 1.6-2.6 Specimen slightly (test code = 627) hemolyzed Benefits Advisor ID - [id number] 05:55:08 Test Item Value Reference Range Interpretation Comments PHOSPHORUS (BEAKER) 3.4 mg/dL 2.3-4.7 Specimen slightly (test code = 604) hemolyzed Benefits Advisor ID - MARCOCBC W/PLT COUNT & AUTO [id number] 04:43:14 Test Item Value Reference Range Interpretation [...] 2801) PROTEIN ELECTROPHORESIS, SERUM WITH REFLEX TO [id number] 16:42:33 Test Item Value Reference Range Interpretation [...] 2615) malnutrition or a protein losing state. [id number] Crystal Moore MD (BEAKER) (test code = (electronic signature) 2616) PROTEIN TOTAL SERUM, 6.0 gm/dL 6.0-8.3 SPEP (BEAKER) (test code = 2660) Clinical Three Dimensional Map Modeler - SFOperator ID - LETICIA BOperator ID - ADMPERIPHERAL BLOOD SMEAR - PATHOLOGIST [id number] 14:33:15 Test Item Value Reference Range Interpretation Comments PERIPHERAL SMR REVIEW Cell counts confirmed. (BEAKER) (test code = There is macrocytic 2640) anemia. Platelets are decreased with no significant platelet clumps or satellitism identified. [id number] Ramsessidney Destiny, (BEAKER) (test code = M.D. 2849) HEPATITIS B SURFACE [id number] 10:29:09 Test Item Value Reference Range Interpretation Comments HEPATITIS B SURFACE ANTIGEN (2) Nonreactive Nonreactive (BEAKER) (test code = 2585) Specimen is considered negative for HBsAg.Transthoracic 2D echo w/ doppler (cw/pw/color)2022-09-25 08:20:07Ejection FractionSLEH ECHO HEARTLAB [facility]an[facility]D echo w/ doppler (cw/pw/color) 2022-09-25 08:20:07Ejection FractionSLE ECHO HEARTLAB [facility] echo w/ doppler (cw/pw/color)2022-09-25 08:20:07Ejection [facility]ractionSLE [facility] (cw/pw/color)2022-09-25 08:20:07Ejection FractionSLE ECHO HEARTLAB [facility] [id number] 05:41:18 Test Item Value Reference Range Interpretation Comments HEPATITIS C ANTIBODY (BEAKER) Nonreactive Nonreactive (test code = 367) Benefits Advisor ID - ANTONIOBASIC METABOLIC [id number] 05:22:16 Test Item Value Reference Range Interpretation [...] eGF R is based on the CKD-EPI 1 equation that d oes not use a race coefficientEsti mated GFR is not as accur ate as Creatinine Josseline stratton in predicting glom erular filtration rate . Estimated GFR is not appl icable for dialysis patien ts Benefits Advisor ID - [id number] 05:21:47 Test Item Value Reference Range Interpretation Comments MAGNESIUM (BEAKER) (test code = 2.0 mg/dL 1.6-2.6 627) Benefits Advisor ID - [id number] 05:21:47 Test Item Value Reference Range Interpretation Comments PHOSPHORUS (BEAKER) (test code = 4.8 mg/dL 2.3-4.7 H 604) Benefits Advisor ID - ANTONIOCBC W/PLT COUNT & AUTO [id number] 05:05:48 Test Item Value Reference Range Interpretation [...] (BEAKER) (test code = 2801) BASIC METABOLIC [id number] 05:39:02 Test Item Value Reference Range Interpretation [...] not appl icable for dialysis patien ts Benefits Advisor ID - JUANITA [id number] 05:34:03 Test Item Value Reference Range Interpretation Comments MAGNESIUM (BEAKER) (test code = 1.9 mg/dL 1.6-2.6 627) Benefits Advisor ID - JUANITA [id number] 05:34:03 Test Item Value Reference Range Interpretation Comments PHOSPHORUS (BEAKER) (test code = 5.9 mg/dL 2.3-4.7 H 604) Benefits Advisor ID Merline GRANT WCBC W/PLT COUNT & AUTO [id number] 04:51:11 Test Item Value Reference Range Interpretation [...] (test code = 2801) HIGH SENSITIVITY TROPONIN [id number] 18:47:20 Test Item Value Reference Range Interpretation Comments HIGH SENSITIVITY 22 pg/ml See_Comment H [Automated message] TROPONIN I (test code = The system which [id number]) generated this result transmitted ref erence range: <=17. Th e reference range was not used to int erpret this result as normal/abnormal . Benefits Advisor ID - LETICIA BThe LOOM WINDER TENDER STAT High Sensitivity Troponin-I results should be used in conjunction with other diagnostic information such as ECG, clinical observations and information, and patient symptoms to aid in the diagnosis of [place].[id number] 18:35:03 Test Item Value Reference Range Interpretation Comments POTASSIUM (DONNY) (test code = 3.1 meq/L 3.5-5.1 L 379) Benefits Advisor ID - LETICIA JUSTIN, CHEST, 1 VIEW, NON [id number] 16:19:00Reason for exam:->pulm edemaShould this be performed at the bedside?->Yes [facility] SAUCED[facility] : 1955 [...] mediastinum: Normal contours. Additional findings: None. Signed: Michael, Samia MDReport Verified Date/Time: 09/23/2022 16:19:33 [id number] 16:00:35 Test Item Value Reference Range Interpretation Comments THYROID STIMULATING HORMONE 1.121 uIU/mL 0.350-4.940 (BEAKER) (test code = 772) Benefits Advisor ID - LETICIA BHIGH SENSITIVITY TROPONIN [id number] 15:45:53 Test Item Value Reference Range Interpretation Comments HIGH SENSITIVITY 23 pg/ml See_Comment H [Automated message] TROPONIN I (test code = The system which 3014454) generated this result transmitted ref erence range: <=17. Th e reference range was not used to int erpret this result as normal/abnormal . Benefits Advisor ID - LETICIA BThe LOOM WINDER TENDER STAT High Sensitivity Troponin-I results should be used in conjunction with other diagnostic information such as ECG, clinical observations and information, and patient symptoms to aid in the diagnosis of [place].B-TYPE NATRIURETIC FACTOR (BNP)2022-09-23 15:45:53 Test Item Value Reference Range Interpretation Comments B-TYPE NATRIURETIC PEPTIDE (BEAKER) 395 pg/mL 0-100 H (test code = 700) Benefits Advisor ID - LETICIA BCOMPREHENSIVE METABOLIC [id number] 15:42:17 Test Item Value Reference Range Interpretation [...] not as accur ate as Creatinine Josseline ivral in predicting glom erular filtration rate . Estimated GFR is not appl icable for dialysis patien ts Benefits Advisor ID - LETICIA [id number] 15:39:33 Test Item Value Reference Range Interpretation Comments MAGNESIUM (BEAKER) (test code = 1.9 mg/dL 1.6-2.6 627) Benefits Advisor ID - LETICIA [id number] 15:39:33 Test Item Value Reference Range Interpretation Comments PHOSPHORUS (BEAKER) (test code = 5.0 mg/dL 2.3-4.7 H 604) Benefits Advisor ID - LETICIA BCBC W/PLT COUNT & AUTO SONGLRBSDAJA4819-47-90 15:23:08 Test Item Value Reference Range Interpretation [...] (BEAKER) (test code = 2801) ECG 12 [id number] 22:49:39 Test Item Value Reference Range Interpretation [...] ECG of 28-APR-2022 02:20,-QRS axis shifted right- [facility] 12 [id number] 22:49:39 Test Item Value Reference Range Interpretation [...] ECG of 28-APR-2022 02:20,-QRS axis shifted right- [facility] RNA [Presence] in Respiratory specimen by DANIEL with probe [id number] 04:29:38 Test Item Value Reference Range Interpretation Comments SARS-CoV-2 (COVID-19) RNA Not detected [Presence] in Respiratory specimen by DANIEL with probe detection (test code = 07006-6) Whether patient is employed in a Unknown healthcare setting (test code = 97586-3) Whether the patient has symptoms Unknown related to condition of interest (test code = 70748-4) Whether the patient was Unknown hospitalized for condition of interest (test code = 42666-6) Whether the patient was admitted Unknown to intensive care unit (ICU) for condition of interest (test code = 94436-7) Whether patient resides in a Unknown congregate care setting (test code = 17627-1) status (test code = Unknown 65283-1) Date and time of symptom onset Unknown (test code = 89392-6) [facility] ED Preliminary Interpretation - Not an [id number] 03:37:43 Test Item Value Reference Range Interpretation Comments GUICHO (test code = GUICHO) Francisco Dean MD 09/09/2022 3:33 [facility] [place] [place] ED Preliminary Interpretation - Not an OrderPerformed by: Francisco Dean MDAuthorized by: Francisco Dean MD ECG reviewed by ED Physician in the absence of a baker biscuit: yes Interpretation: Interpretation: abnormal Quality: Tracing quality: Limited by artifactRate: ECG rate: 94 ECG rate assessment: normal Rhythm: Rhythm: atrial fibrillation Ectopy: Ectopy: none QRS: QRS axis: Right QRS intervals: NormalConduction: Conduction: normal ST segments: ST segments: NormalT waves: T waves: non-specific Comments: QRS 82. QTc 420. Lab Interpretation Abnormal (test code = 74432-2) [facility] [id number] 17:49:00 Test Item Value Reference Interpretation Comments [...] = Performing RAC) Organization Information: Site ID: [facility] Name: [facility] Address: [address] [place] [address] Director: Yusef Boyce Lab Abnormal Interpretation (test code = 28087-8) [facility] [id number] 17:49:00 Test Item Value Reference Range Interpretation [...] code = RAC) Organization Information: Site ID: [facility]: [facility] Address: [address] [place] [address] Director: Yusef Boyce [facility] HospitalVitamin D 25 hydroxy [id number] 17:49:00 Test Item Value Reference Range Interpretation [...] please refer to http://educatio n.Q uestDiagnostics .co m/faq/ZIT740 (T his link is being provided for informational/e gini ational purpose s only.) GUICHO (test code = FASTING:NO FASTING: GUICHO) NO RAC (test code = Performing RAC) Organization Information: Site ID: [facility] Name: [facility] Address: [address] [place] [id number] Director: Yusef Boyce [facility] HospitalParathyroid [id number] 17:49:00 Test Item Value Reference Interpretation Comments [...] RAC) Organization Information: Site ID: [facility] Name: [facility] Lab Address: [address] [place] [phone] Director: Yusef Boyce Lab Abnormal Interpretation (test code = 71067-2) [facility]Th[facility] stimulating [id number] 17:49:00 Test Item Value Reference Range Interpretation [...] code = RAC) Organization Information: Site ID: [facility] Name: [facility] Lab Address: [address] [place] [phone] Director: [facility]usef [facility]Tr[facility] CenterVitamin D 25 hydroxy [id number] 17:49:00 Test Item Value Reference Range Interpretation Comments Vitamin D, 82 ng/mL 30-100 Vitamin D Statu s 25-hydroxy (test 25-OH Vitam in D: code = 1988-12) Deficiency: <20 ng/mLInsufficie ncy : 20 - 29 ng/mLOptimal: [...] please refer to http://educatio n.Q uestDiagnostics .co m/faq/HGV848 (T his link is being provided for informational/e gini ational purpose s only.) GUICHO (test code = FASTING:NO FASTING: GUICHO) NO RAC (test code = Performing RAC) Organization Information: Site ID: [facility] Name: [facility] Lab Address: [address] [place] [phone] Director: Yusef Posadas Nivia [facility] [id number] 04:51:00 Test Item Value Reference Range Interpretation Comments POC glucose (test code = 129 mg/dL 65-99 H Ope rator Name: [id number]) Alfred Timmons~Radha ce ID: [id number]~Laura table : HMW Notified [employer] professor Interpretation (test Abnormal code = 21132-6) [facility] [id number] 04:51:00 Test Item Value Reference Range Interpretation Comments POC glucose (test code = 129 mg/dL 65-99 H Ope rator Name: [id number]) Alfred Timmons~Radha ce ID: [id number]~Laura table : HMW [facility] [employer] professor Interpretation (test Abnormal code = 37072-6) [facility]Tran[facility] Echocardi[facility] Complete, (w Contrast, Strain and 3D if needed)2022-06-26 14:28:07 Test Item Value Reference Interpretation Comments Range RA pressure (test mmHg code = 5987062341) EF (test code = 50 % 54-74 A 6766700848) IVS,d (test code = 0.92 cm 0.6-0.9 A 2116152558) IVS s 2D (test code 1.08 cm = 7627925769) LVPWD,d (test code = 0.93 cm 0.60-1.19 0261855710) LVPW s PLAX (test 1.13 cm code = 9083285350) LV,s (test code = 2.94 cm 9196631406) LVOT Diam,S (test 1.98 cm code = 2956345819) LV BURGESS VOL (test 66.04 ml 46-106 code = 7806788365) LV SYS VOL (test 33.32 ml 14-42 code = 0763818268) MV Peak E Jonathan (test 1.61 m/s code = 9849302291) MV Peak A Jonathan (test 0.58 m/s code = 3204453691) E/A ratio (test code See_Comment A [Autom ated = 4165314168) message] The system which generated this result transmitted reference range : <=0.8. The reference range was not used to interpret this result as normal/abnormal . E wave decelartion See_Comment A [Automat ed time (test code = message] T he 1131489040) system which generated this result transmitted reference range : 200 msec. The reference range was not used to interpret this result as normal/abnormal . LV,d (test code = 3.90 cm 6776578534) IVS/LVPW,2D (test code = 2212205587) LV EF,2D (test code 57.26 % = 6437710631) LV FS Cube 2D (test code = 5580417863) LV FS Teich 2D (test code = 9593204957) LV SV Teich 2D (test 32.73 ml code = 1452201992) LV Vol s Teich PSAX 33.32 ml (test code = 5971500829) LVOT stroke volume 0.46 cm3 (test code = 4756117473) Left Atrium 5.30 cm See_Comment A [Automated Dimension Anterior message] The (test code = system which 2578099365) generated this result transmitted reference range : <=3.8. The reference range was not used to interpret this result as normal/abnormal . LA Vol MOD A4C (test 130.09 ml code = 5776027908) LA area s A4C (test 36.52 cm2 code = 1074410709) LVOT area (test code 3.08 cm2 = 8091798259) LVOT Vmax (test code 0.85 m/s = 1858394569) AoV Mean PG (test See_Comment [Automate d code = 3220589097) message] The system which generated this result transmitted reference range : 20 mmHg. The reference range was not used to interpret this result as normal/abnormal . AoV Peak PG (test mmHg code = 9032387211) AV LVOT peak mmHg gradient (test code = 2184121569) AoV Area, Vmax (test 1.94 cm2 See_Comment [Autom ated code = 4502500817) message] The system which generated this result transmitted reference range : >=1.5. The reference range was not used to interpret this result as normal/abnormal . LVOT VTI (CM) (test 15.00 cm code = 4971484297) AoV Vmax (test code 1.35 m/s = 9671721070) AoV Vmn (test code = 0.82 m/s 6917898631) AoV Area, VTI (test 2.30 cm2 code = 7819608335) LVOT CO (test code = 4.72 l/min 5334527870) LVOT HR for LVOT CO bpm (test code = 0537027345) Velocity Ratio 0.63 m/s (V1/V2) (test code = 4689) MV mean gradient See_Comment [Automated (test code = message] The 9411792082) system which generated this result transmitted reference range : 5 mmHg. The reference range was not used to interpret this result as normal/abnormal . MR peak grad (test mmHg code = 4738047000) MV stenosis pressure 30.12 ms See_Comment [Autom ated 1/2 time (test code message] The = 7696224569) system which generated this result transmitted reference range : <=150. The reference range was not used to interpret this result as normal/abnormal . MV E A ratio (test code = 7159491560) MV valve area p 1/2 7.30 cm2 method (test code = 3699567315) MV VTI Tips (test 0.15 m code = 7205311707) MV Vmax (test code = 0.72 m 6905884199) RVSP (test code = See_Comment A [Automate d 6274585763) message] The system which generated this result transmitted reference range : 40.00 mmHg. The reference range was not used to interpret this result as normal/abnormal . TR pk grad (test mmHg code = 3713056550) TR Vpeak (test code 2.85 m/s = 6602874328) RVSP (TR) (test code mmHg = 5268268835) RVOT Vmax (test code 0.44 m/s = 5844419524) PV Mean Grad (test mmHg code = 0215483507) PV Pk Grad (test See_Comment [Automated code = 1727454024) message] The system which generated this result transmitted reference range : 36 mmHg. The reference range was not used to interpret this result as normal/abnormal . PV VTI (test code = 0.17 m 9704933584) RVOT pk grad (test mmHg code = 7946775173) PV VMAX (test code = 1.05 m/s See_Comment [Autom ated 9811311218) message] The system which generated this result transmitted reference range : <=3. The reference range was not used to interpret this result as normal/abnormal . PV Vmn (test code = 0400986189) Ao Root Diameter 2.95 cm See_Comment [Automated (test code = message] The 0799915325) system which generated this result transmitted reference range : <=3.99. The reference range was not used to interpret this result as normal/abnormal . Ao Root Diameter 2.95 cm (test code = 7763300878) Ascending aorta 2.58 cm (test code = 0279354801) Pred METS R1 (test code = 9509868266) Pred Exer Dur R1 (test code = 4638050518) MV Decel slope (test 15.54 m/s2 code = 1839081660) LVPW pct thck PLAX 20.67 % (test code = 6370523563) LV vol s cube 2D 25.42 ml (test code = 1774685957) LV vol d cube 2D 59.47 ml (test code = 5289396035) LV SV Cube 2D (test 34.05 ml code = 8402864353) IVS pct thck PLAX 17.04 % (test code = 4424221134) Calc MPHR (test code bpm = 9073752250) 85 of MPHR (test code = 8809551689) RVOT VTI (test code 0.08 m = 5753723561) RVOT Vmn (test code 0.30 m/s = 4796219165) RVOT mean grad (test mmHg code = 0101002610) MAX Pred HR (test code = 4436736913) LVOT mean grad (test mmHg code = 8706797619) Aov area Vmn (test 2.31 cm2 code = 1691612936) MV AE ratio (test code = 4164957325) LVOT Vmn (test code = 5448966082) MR Vmax (test code = 4.65 m/s 9982414273) AoV VTI (test code = 0.20 m 7941110123) LVOT VTI (test code 0.15 m = 8179390616) GUICHO (test code = GUICHO) Left Ventricle: [...] artifact. Lab Interpretation Abnormal (test code = 31866-5) [facility], (w Contrast, Strain and 3D if needed)2022-06-26 14:28:07 Test Item Value Reference Interpretation Comments Range RA pressure (test mmHg code = 0999425313) EF (test code = 50 % 54-74 A 5544670719) IVS,d (test code = 0.92 cm 0.6-0.9 A 3805600262) IVS s 2D (test code 1.08 cm = 6495432540) LVPWD,d (test code = 0.93 cm 0.60-1.19 5313632045) LVPW s PLAX (test 1.13 cm code = 1947423302) LV,s (test code = 2.94 cm 5610162540) LVOT Diam,S (test 1.98 cm code = 3136440502) LV BURGESS VOL (test 66.04 ml 46-106 code = 5591576640) LV SYS VOL (test 33.32 ml 14-42 code = 0119346924) MV Peak E Jonathan (test 1.61 m/s code = 6896868727) MV Peak A Jonathan (test 0.58 m/s code = 5031800808) E/A ratio (test code See_Comment A [Autom ated = 1750348961) message] The system which generated this result transmitted reference range : <=0.8. The reference range was not used to interpret this result as normal/abnormal . E wave decelartion See_Comment A [Automat ed time (test code = message] T he 8697827542) system which generated this result transmitted reference range : 200 msec. The reference range was not used to interpret this result as normal/abnormal . LV,d (test code = 3.90 cm 8919733631) IVS/LVPW,2D (test code = 9847926663) LV EF,2D (test code 57.26 % = 8509170023) LV FS Cube 2D (test code = 7940503687) LV FS Teich 2D (test code = 9409856481) LV SV Teich 2D (test 32.73 ml code = 9214282914) LV Vol s Teich PSAX 33.32 ml (test code = 5614801515) LVOT stroke volume 0.46 cm3 (test code = 7835104670) Left Atrium 5.30 cm See_Comment A [Automated Dimension Anterior message] The (test code = system which 6018461397) generated this result transmitted reference range : <=3.8. The reference range was not used to interpret this result as normal/abnormal . LA Vol MOD A4C (test 130.09 ml code = 2355184020) LA area s A4C (test 36.52 cm2 code = 3909485114) LVOT area (test code 3.08 cm2 = 1556721025) LVOT Vmax (test code 0.85 m/s = 5766331342) AoV Mean PG (test See_Comment [Automate d code = 6926870031) message] The system which generated this result transmitted reference range : 20 mmHg. The reference range was not used to interpret this result as normal/abnormal . AoV Peak PG (test mmHg code = 8811524289) AV LVOT peak mmHg gradient (test code = 1836358401) AoV Area, Vmax (test 1.94 cm2 See_Comment [Autom ated code = 7789380212) message] The system which generated this result transmitted reference range : >=1.5. The reference range was not used to interpret this result as normal/abnormal . LVOT VTI (CM) (test 15.00 cm code = 1818270730) AoV Vmax (test code 1.35 m/s = 7792191640) AoV Vmn (test code = 0.82 m/s 5796152175) AoV Area, VTI (test 2.30 cm2 code = 3880364950) LVOT CO (test code = 4.72 l/min 0753842961) LVOT HR for LVOT CO bpm (test code = 6126613349) Velocity Ratio 0.63 m/s (V1/V2) (test code = 4689) MV mean gradient See_Comment [Automated (test code = message] The 4957642164) system which generated this result transmitted reference range : 5 mmHg. The reference range was not used to interpret this result as normal/abnormal . MR peak grad (test mmHg code = 4873950118) MV stenosis pressure 30.12 ms See_Comment [Autom ated 1/2 time (test code message] The = 2299251508) system which generated this result transmitted reference range : <=150. The reference range was not used to interpret this result as normal/abnormal . MV E A ratio (test code = 6696565740) MV valve area p 1/2 7.30 cm2 method (test code = 9189552525) MV VTI Tips (test 0.15 m code = 0488847669) MV Vmax (test code = 0.72 m 0432197964) RVSP (test code = See_Comment A [Automate d 0763232278) message] The system which generated this result transmitted reference range : 40.00 mmHg. The reference range was not used to interpret this result as normal/abnormal . TR pk grad (test mmHg code = 7831883655) TR Vpeak (test code 2.85 m/s = 3585105637) RVSP (TR) (test code mmHg = 7245590819) RVOT Vmax (test code 0.44 m/s = 9620680118) PV Mean Grad (test mmHg code = 6579027887) PV Pk Grad (test See_Comment [Automated code = 4669359716) message] The system which generated this result transmitted reference range : 36 mmHg. The reference range was not used to interpret this result as normal/abnormal . PV VTI (test code = 0.17 m 0763264859) RVOT pk grad (test mmHg code = 1196261769) PV VMAX (test code = 1.05 m/s See_Comment [Autom ated 1020201386) message] The system which generated this result transmitted reference range : <=3. The reference range was not used to interpret this result as normal/abnormal . PV Vmn (test code = 7455887075) Ao Root Diameter 2.95 cm See_Comment [Automated (test code = message] The 5629360347) system which generated this result transmitted reference range : <=3.99. The reference range was not used to interpret this result as normal/abnormal . Ao Root Diameter 2.95 cm (test code = 1106152705) Ascending aorta 2.58 cm (test code = 0309305817) Pred METS R1 (test code = 8394759175) Pred Exer Dur R1 (test code = 7567715614) MV Decel slope (test 15.54 m/s2 code = 5403804135) LVPW pct thck PLAX 20.67 % (test code = 0665924873) LV vol s cube 2D 25.42 ml (test code = 9490946740) LV vol d cube 2D 59.47 ml (test code = 0457391525) LV SV Cube 2D (test 34.05 ml code = 7871815298) IVS pct thck PLAX 17.04 % (test code = 9992849833) Calc MPHR (test code bpm = 9266507001) 85 of MPHR (test code = 0797685935) RVOT VTI (test code 0.08 m = 6742025545) RVOT Vmn (test code 0.30 m/s = 6132855276) RVOT mean grad (test mmHg code = 4372801607) MAX Pred HR (test code = 2284500610) LVOT mean grad (test mmHg code = 3326431052) Aov area Vmn (test 2.31 cm2 code = 4551950015) MV AE ratio (test code = 4058954737) LVOT Vmn (test code = 9935841304) MR Vmax (test code = 4.65 m/s 3268280206) AoV VTI (test code = 0.20 m 2689041232) LVOT VTI (test code 0.15 m = 6765174028) GUICHO (test code = GUICHO) Left Ventricle: [...] artifact. Lab Interpretation Abnormal (test code = 21424-7) [facility] [Presence] in Respiratory specimen by DANIEL with probe [id number] 19:34:22 Test Item Value Reference Range Interpretation Comments SARS-CoV-2 (COVID-19) RNA [Presence] Detected in Respiratory specimen by DANIEL with probe detection (test code = 76098-4) Whether patient is employed in a Unknown healthcare setting (test code = 01331-2) Whether the patient has symptoms Unknown related to condition of interest (test code = 92909-6) Whether the patient was hospitalized Unknown for condition of interest (test code = 68543-9) Whether the patient was admitted to Unknown intensive care unit (ICU) for condition of interest (test code = 57319-9) Whether patient resides in a Unknown congregate care setting (test code = 54101-0) status (test code = Unknown 28900-0) Date and time of symptom onset (test Unknown code = 76817-6) [facility] METABOLIC [id number] 16:39:00 Test Item Value Reference Range Interpretation [...] = 8.8 mg/dL 8.0-10.5 N CA) PROTHROMBIN [id number] 16:33:00 Test Item Value Reference Range Interpretation [...] (to prevent recurrent infar ct). CBC W/AUTO [id number] 16:23:00 Test Item Value Reference Range Interpretation [...] code NO = MDIFF) Hepatitis B surface fpzfjzdh7090-64-92 21:36:32 Test Item Value Reference Range Interpretation Comments Hep B S Ab (test code <8.0 See_Comment [Auto mated = 98578-1) message] The system which generated this result transmit yahir reference range : <8.0 mIU/mL. Th e reference range was not used to interpret this result as normal/abnormal . GUICHO (test code = GUICHO) Benefits Advisor ID - DB Lab Interpretation Normal (test code = 90545-8) [facility] vfkimlrt3761-51-81 21:36:32 Test Item Value Reference Range Interpretation Comments Hep B S Ab (test code <8.0 See_Comment [Auto mated = 59330-8) message] The system which generated this result transmit yahir reference range : <8.0 mIU/mL. Th e reference range was not used to interpret this result as normal/abnormal . GUICHO (test code = GUICHO) Benefits Advisor ID - DB Lab Interpretation Normal (test code = 69043-2) [facility] B surface [id number] 21:36:32 Test Item Value Reference Range Interpretation Comments Hep B S Ab (test code <8.0 See_Comment [Auto mated = 79518-5) message] The system which generated this result transmit yahir reference range : <8.0 mIU/mL. Th e reference range was not used to interpret this result as normal/abnormal . GUICHO (test code = GUICHO) Benefits Advisor ID - DB Lab Interpretation Normal (test code = 96167-9) [facility] B surface hdcrmfoq7699-33-74 21:36:32 Test Item Value Reference Range Interpretation Comments Hep B S Ab (test code <8.0 See_Comment [Auto mated = 39846-4) message] The system which generated this result transmit yahir reference range : <8.0 mIU/mL. Th e reference range was not used to interpret this result as normal/abnormal . GUICHO (test code = GUICHO) Benefits Advisor ID - DB Lab Interpretation Normal (test code = 21390-1) [facility] B surface cdxxjxif6409-29-96 21:36:32 Test Item Value Reference Range Interpretation Comments Hep B S Ab (test code <8.0 See_Comment [Auto mated = 42249-5) message] The system which generated this result transmit yahir reference range : <8.0 mIU/mL. Th e reference range was not used to interpret this result as normal/abnormal . GUICHO (test code = GUICHO) Benefits Advisor ID - DB Lab Interpretation Normal (test code = 90628-5) [facility] B surface cutobcqp6422-47-30 21:36:32 Test Item Value Reference Range Interpretation Comments Hep B S Ab (test code <8.0 See_Comment [Auto mated = 14013-4) message] The system which generated this result transmit yahir reference range : <8.0 mIU/mL. Th e reference range was not used to interpret this result as normal/abnormal . GUICHO (test code = GUICHO) Benefits Advisor ID - DB Lab Interpretation Normal (test code = 13387-0) [facility] [id number] 21:36:32 Test Item Value Reference Range Interpretation Comments HEPATITIS B SURFACE ANTIBODY < mIU/mL <8.0 (BEAKER) (test code = 647) Benefits Advisor ID - DBHepatitis B surface hopitjo0095-82-34 21:24:22 Test Item Value Reference Range Interpretation Comments Hepatitis B surface Nonreactive Nonreactive antigen (test code = 5195-3) GUICHO (test code = GUICHO) Specimen is considered negative for HBsAg. Lab Interpretation (test Normal code = 16359-2) [facility] [id number] 21:24:22 Test Item Value Reference Range Interpretation Comments Hepatitis B surface Nonreactive Nonreactive antigen (test code = 5195-3) GUICHO (test code = GUICHO) Specimen is considered negative for HBsAg. Lab Interpretation (test Normal code = 77187-3) [facility] [id number] 21:24:22 Test Item Value Reference Range Interpretation Comments HEPATITIS B SURFACE ANTIGEN (2) Nonreactive Nonreactive (BEAKER) (test code = 2585) Specimen is considered negative for HBsAg.Transthoracic Echocardiogram Complete, (w Contrast, Strain and 3D if needed)2022-04-13 13:23:07 Test Item Value Reference Interpretation Comments Range EF (test code = 66 % 54-74 1950509208) IVS,d (test code = 1.03 cm 0.6-0.9 A 0582120967) LVPWD,d (test code = 1.27 cm 0.60-1.19 A 6643054071) LV,s (test code = 2.56 cm 4816959875) LVOT Diam,S (test 2.01 cm code = 0205534070) LV BURGESS VOL (test 69.20 ml 46-106 code = 4809764538) LV SYS VOL (test 23.74 ml 14-42 code = 2198495114) MV Peak E Jonathan (test 1.20 m/s code = 5112780098) MV Peak A Jonathan (test 0.47 m/s code = 5275040637) E/A ratio (test code See_Comment A [Autom ated = 0540898223) message] The system which generated this result transmitted reference range : <=0.8. The reference range was not used to interpret this result as normal/abnormal . E wave decelartion See_Comment A [Automat ed time (test code = message] T he 2482576003) system which generated this result transmitted reference range : 200 msec. The reference range was not used to interpret this result as normal/abnormal . LV,d (test code = 3.98 cm 9350634782) IVS/LVPW,2D (test code = 4214324942) LV EF,2D (test code 73.32 % = 3741781886) LV FS Cube 2D (test code = 2036476954) LV FS Teich 2D (test code = 2225415071) LV SV Teich 2D (test 45.46 ml code = 1962758630) LV Vol s Teich PSAX 23.74 ml (test code = 8931916693) LVOT stroke volume 0.35 cm3 (test code = 1556630899) Left Atrium 4.52 cm See_Comment A [Automated Dimension Anterior message] The (test code = system which 6795364433) generated this result transmitted reference range : <=3.8. The reference range was not used to interpret this result as normal/abnormal . LA Vol MOD A4C (test 83.62 ml code = 3085386361) LA area s A4C (test 28.59 cm2 code = 8189541625) LA Ao Ratio Mmode (test code = 4423908074) LVOT area (test code 3.17 cm2 = 7807546448) LVOT Vmax (test code 0.62 m/s = 6540077558) AoV Mean PG (test See_Comment [Automate d code = 7684293254) message] The system which generated this result transmitted reference range : 20 mmHg. The reference range was not used to interpret this result as normal/abnormal . AoV Peak PG (test mmHg code = 6539977523) AV LVOT peak mmHg gradient (test code = 1839786951) AoV Area, Vmax (test 2.00 cm2 See_Comment [Autom ated code = 0551085117) message] The system which generated this result transmitted reference range : >=1.5. The reference range was not used to interpret this result as normal/abnormal . LVOT VTI (CM) (test 11.00 cm code = 6759106636) AoV Vmax (test code 0.98 m/s = 9579353755) AoV Vmn (test code = 0.65 m/s 1013874546) AoV Area, VTI (test 2.42 cm2 code = 2252689452) Velocity Ratio 0.63 m/s (V1/V2) (test code = 4689) MR peak grad (test mmHg code = 4745674088) MV stenosis pressure 31.00 ms See_Comment [Autom ated 1/2 time (test code message] The = 0729421146) system which generated this result transmitted reference range : <=150. The reference range was not used to interpret this result as normal/abnormal . MV E A ratio (test code = 6178356817) MV valve area p 1/2 7.10 cm2 method (test code = 7007876082) E prime lat (test code = 2348328046) E katherine sept (test code = 2440477165) RVSP (test code = See_Comment A [Automate d 2122147372) message] The system which generated this result transmitted reference range : 40.00 mmHg. The reference range was not used to interpret this result as normal/abnormal . RA pressure (test mmHg code = 2299066316) TR pk grad (test mmHg code = 4689169875) TR Vpeak (test code 3.51 m/s = 8325253500) RVSP (TR) (test code mmHg = 0203201888) RVOT Vmax (test code 0.46 m/s = 5125834252) PV Pk Grad (test See_Comment [Automated code = 0189279512) message] The system which generated this result transmitted reference range : 36 mmHg. The reference range was not used to interpret this result as normal/abnormal . RVOT pk grad (test mmHg code = 7373976659) PV VMAX (test code = 1.15 m/s See_Comment [Autom ated 7291805644) message] The system which generated this result transmitted reference range : <=3. The reference range was not used to interpret this result as normal/abnormal . Ao root annulus 2.82 cm (test code = 6092968446) Ao Root Diameter 3.23 cm See_Comment [Automated (test code = message] The 3309271436) system which generated this result transmitted reference range : <=3.99. The reference range was not used to interpret this result as normal/abnormal . Ao Root Diameter 3.23 cm (test code = 9289122500) Ascending aorta 3.69 cm (test code = 4079453229) Pred METS R1 (test code = 9806142342) Pred Exer Dur R1 (test code = 5752580340) MV Decel slope (test 11.26 m/s2 code = 9087947227) LV vol s cube 2D 16.83 ml (test code = 3903181551) LV vol d cube 2D 63.08 ml (test code = 5090144248) LV SV Cube 2D (test 46.25 ml code = 9520535388) Calc MPHR (test code bpm = 3774374114) 85 of MPHR (test code = 1043471396) MAX Pred HR (test code = 4443105029) LVOT mean grad (test mmHg code = 8710751935) Aov area Vmn (test 1.92 cm2 code = 5782551479) MV AE ratio (test code = 9372410316) LVOT Vmn (test code = 6783843204) MR Vmax (test code = 4.22 m/s 5262168655) AoV VTI (test code = 0.15 m 7544848541) LVOT VTI (test code 0.11 m = 5128046258) GUICHO (test code = GUICHO) Left Ventricle: [...] tachycardia. Lab Interpretation Abnormal (test code = 06376-4) [facility], (w Contrast, Strain and 3D if needed)2022-04-13 13:23:07 Test Item Value Reference Interpretation Comments Range EF (test code = 66 % 54-74 4609554857) IVS,d (test code = 1.03 cm 0.6-0.9 A 4466946477) LVPWD,d (test code = 1.27 cm 0.60-1.19 A 3777948593) LV,s (test code = 2.56 cm 4588078553) LVOT Diam,S (test 2.01 cm code = 8400525032) LV BURGESS VOL (test 69.20 ml 46-106 code = 8805472424) LV SYS VOL (test 23.74 ml 14-42 code = 3975722884) MV Peak E Jonathan (test 1.20 m/s code = 4528986904) MV Peak A Jonathan (test 0.47 m/s code = 3987773414) E/A ratio (test code See_Comment A [Autom ated = 5351011319) message] The system which generated this result transmitted reference range : <=0.8. The reference range was not used to interpret this result as normal/abnormal . E wave decelartion See_Comment A [Automat ed time (test code = message] T he 9965492201) system which generated this result transmitted reference range : 200 msec. The reference range was not used to interpret this result as normal/abnormal . LV,d (test code = 3.98 cm 1594512650) IVS/LVPW,2D (test code = 3202054453) LV EF,2D (test code 73.32 % = 6264366934) LV FS Cube 2D (test code = 1464429998) LV FS Teich 2D (test code = 5665298349) LV SV Teich 2D (test 45.46 ml code = 2880369401) LV Vol s Teich PSAX 23.74 ml (test code = 4447638710) LVOT stroke volume 0.35 cm3 (test code = 9716158032) Left Atrium 4.52 cm See_Comment A [Automated Dimension Anterior message] The (test code = system which 1565042227) generated this result transmitted reference range : <=3.8. The reference range was not used to interpret this result as normal/abnormal . LA Vol MOD A4C (test 83.62 ml code = 5660473092) LA area s A4C (test 28.59 cm2 code = 8440045548) LA Ao Ratio Mmode (test code = 0453122595) LVOT area (test code 3.17 cm2 = 4757326205) LVOT Vmax (test code 0.62 m/s = 2669525293) AoV Mean PG (test See_Comment [Automate d code = 6976882014) message] The system which generated this result transmitted reference range : 20 mmHg. The reference range was not used to interpret this result as normal/abnormal . AoV Peak PG (test mmHg code = 2139525382) AV LVOT peak mmHg gradient (test code = 5376513823) AoV Area, Vmax (test 2.00 cm2 See_Comment [Autom ated code = 3436502362) message] The system which generated this result transmitted reference range : >=1.5. The reference range was not used to interpret this result as normal/abnormal . LVOT VTI (CM) (test 11.00 cm code = 7569670679) AoV Vmax (test code 0.98 m/s = 3892006794) AoV Vmn (test code = 0.65 m/s 2903974317) AoV Area, VTI (test 2.42 cm2 code = 3752166899) Velocity Ratio 0.63 m/s (V1/V2) (test code = 4689) MR peak grad (test mmHg code = 7854114876) MV stenosis pressure 31.00 ms See_Comment [Autom ated 1/2 time (test code message] The = 2348276834) system which generated this result transmitted reference range : <=150. The reference range was not used to interpret this result as normal/abnormal . MV E A ratio (test code = 3257880793) MV valve area p 1/2 7.10 cm2 method (test code = 6534485729) E prime lat (test code = 2259763555) E katherine sept (test code = 5099619060) RVSP (test code = See_Comment A [Automate d 9516639895) message] The system which generated this result transmitted reference range : 40.00 mmHg. The reference range was not used to interpret this result as normal/abnormal . RA pressure (test mmHg code = 0849020920) TR pk grad (test mmHg code = 7120138940) TR Vpeak (test code 3.51 m/s = 1440560000) RVSP (TR) (test code mmHg = 8569445744) RVOT Vmax (test code 0.46 m/s = 5522620407) PV Pk Grad (test See_Comment [Automated code = 0673169328) message] The system which generated this result transmitted reference range : 36 mmHg. The reference range was not used to interpret this result as normal/abnormal . RVOT pk grad (test mmHg code = 1715363788) PV VMAX (test code = 1.15 m/s See_Comment [Autom ated 2054901434) message] The system which generated this result transmitted reference range : <=3. The reference range was not used to interpret this result as normal/abnormal . Ao root annulus 2.82 cm (test code = 2235468205) Ao Root Diameter 3.23 cm See_Comment [Automated (test code = message] The 0216293597) system which generated this result transmitted reference range : <=3.99. The reference range was not used to interpret this result as normal/abnormal . Ao Root Diameter 3.23 cm (test code = 9728759216) Ascending aorta 3.69 cm (test code = 7134807223) Pred METS R1 (test code = 9609045652) Pred Exer Dur R1 (test code = 1972684829) MV Decel slope (test 11.26 m/s2 code = 4982022283) LV vol s cube 2D 16.83 ml (test code = 0623973135) LV vol d cube 2D 63.08 ml (test code = 1989461496) LV SV Cube 2D (test 46.25 ml code = 8524959716) Calc MPHR (test code bpm = 4571436960) 85 of MPHR (test code = 9299528441) MAX Pred HR (test code = 8541231543) LVOT mean grad (test mmHg code = 9396197781) Aov area Vmn (test 1.92 cm2 code = 4745672085) MV AE ratio (test code = 1921514342) LVOT Vmn (test code = 9374987415) MR Vmax (test code = 4.22 m/s 1949993354) AoV VTI (test code = 0.15 m 6575519798) LVOT VTI (test code 0.11 m = 8458714736) GUICHO (test code = GUICHO) Left Ventricle: [...] tachycardia. Lab Interpretation Abnormal (test code = 49867-9) [facility] [id number] 07:26:00 Test Item Value Reference Interpretation Comments Range Urine culture Proteus miqpbpx44-0 A Specime n isolate (test cfu/mlThe [facility] code = 79828-9) performance Source: Urin eSpecimen characteristics of Site: Christopher an catch this assay on this isolatewere validated by the Microbiology Laboratory at [facility]. This source has not been approved by the U.S. Food and Drug Administration. The results are not intended to be used as the sole means for clinical diagnosis or patient management. The Microbiology Laboratory is authorized under the clinical Laboratory Improvement Amendments of 1988 (CLIA-88) to perform high complexity testing. Lab Abnormal Interpretation (test code = 82590-9) [facility] [id number] 07:26:00 Test Item Value Reference Interpretation Comments Range Urine culture Proteus nfndovz96-7 A Specime n isolate (test cfu/mlThe [facility] code = 96749-4) performance Source: Urin eSpecimen characteristics of Site: Christopher an catch this assay on this isolatewere validated by the Microbiology Laboratory at [facility]. This source has not been approved by the U.S. Food and Drug Administration. The results are not intended to be used as the sole means for clinical diagnosis or patient management. The Microbiology Laboratory is authorized under the clinical Laboratory Improvement Amendments of 1988 (CLIA-88) to perform high complexity testing. Lab Abnormal Interpretation (test code = 59609-9) [facility] [Presence] in Respiratory specimen by DANIEL with probe [id number] 00:41:02 Test Item Value Reference Range Interpretation Comments SARS-CoV-2 (COVID-19) RNA Not detected [Presence] in Respiratory specimen by DANIEL with probe detection (test code = 40384-9) Whether patient is employed in a Unknown healthcare setting (test code = 89304-1) Whether the patient has symptoms Unknown related to condition of interest (test code = 88589-5) Whether the patient was Unknown hospitalized for condition of interest (test code = 00340-3) Whether the patient was admitted Unknown to intensive care unit (ICU) for condition of interest (test code = 52601-2) Whether patient resides in a Unknown congregate care setting (test code = 78833-0) status (test code = Unknown 93533-4) Date and time of symptom onset Unknown (test code = 40289-1) [facility]- XR [id number] 10:28:00 [facility] : 1955 Sex: F Name: FREDDIE SAUCEDO [facility] : 1955 Age/S: 66 / F [address] [facility] Unit #: [id number] Loc: [place] [address] Phys: Mic Aiken MD Acct: [id number] Dis Date: Status: [facility] PHONE #: [phone] Exam Date: 03/08/2022 0950 FAX #: Reason: ERCP EXAMS: CPT: [id number] XR ERCP 72105 Fluoro Time: 33 SEC DAP (Gy m2): [...] Ru Hernandez M.D. CC: Mic Aiken MD; Anotnella Carrillo MD PAGE 1 Signed Report Name: FREDDIE SAUCEDO : 1955 Age/S: 66 / F [address] [facility] Unit #: [id number] Loc: [place] [address] Phys: Mic Aiken MD Acct: [id number] Dis Date: Status: REG SDC PHONE #: [phone] Exam Date: 03/08/2022 0950 FAX #: Reason: ERCP EXAMS: CPT: [id number] XR ERCP 72263 Fluoro Time: 33 SEC DAP (Gy m2): Air Kerma (mGy): (Continued) Technologist: Naila Davis, RT(R) Trnscb Date/Time: 03/08/2022 (1027) [email or web address] Orig Print D/T: S: 03/08/2022 (5877) PAGE 2 Signed [id number] 08:51:00 Test Item Value Reference Range Interpretation Comments POTASSIUM (test code = K) 5.1 mmol/L 3.4-5.0 H CBC W/AUTO [id number] 08:15:00 Test Item Value Reference Range Interpretation [...] NO DIFF/SCN CRITERIA = MDIFF) BASIC METABOLIC [id number] 08:08:00 Test Item Value Reference Range Interpretation [...] 9.9 MG/DL 8.5-10.1 N COVID 19 INHOUSE [id number] 14:11:00 Test Item Value Reference Range Interpretation Comments COVID 19 INHOUSE AG NEGATIVE Negative Per manu facturer, (test code = negative result s should [id number]) be treated aspr esumptive and, if inconsi [...] symptoms co nsistent with COVID-19. CBC W/AUTO [id number] 14:00:00 Test Item Value Reference Range Interpretation [...] NT WITH AUTO DIFFERENTI AL. BASIC METABOLIC [id number] 13:32:00 Test Item Value Reference Range Interpretation [...] CA) 10.1 MG/DL 8.5-10.1 N HEPATIC FUNCTION [id number] 13:32:00 Test Item Value Reference Range Interpretation [...] 222 Unit/L 45-117 H code = ALKP) [id number] 13:32:00 Test Item Value Reference Range Interpretation Comments LIPASE (test code = LIP) 109 Unit/L 114-286 L [id number] 18:01:00 Test Item Value Reference Range Interpretation Comments SURGICAL (test code = SR) RUN DATE: 03/01/22 [facility] PAGE 1 RUN TIME: 1801 Specimen Inquiry RUN USER: INTERFACE LIANNA ENT: FREDDIE SAUCEDO LOC: [facility] U #: [id number] AGE/SX: 66/F ROOM: RE02/27/22REG DR: Adam King MD : 57 BED: DIS: STATUS: DEP SDC TLOC: SPEC #: [id number] RECD: 02/27/22 STATUS: YULIA PILLAI #: [id number] LUZ: 02/27/[address] [place]: Adam King MD ENTERED: 02/27/22 SP TYPE: SURGICAL OTHR DR: Antonella Carrillo MD ORDERED: 87112/2, 38463, 24936, 62876, ANATOMIC SPEC, SPECIMEN TRACK COPIES TO: Antonella Carrillo MD [address] [place] [address] Adam King MD [address] [place] [address] PROCEDURES: 02197 (02/27/22) 00022 (03/01/22) 51028 (03/01/22) 02294 (03/01/22) SPECIMEN TRACK (02/27/22) TISSUES: A. GASTRIC [...] internal) control is negative (staining performed at [facility]). CONTINUED ON NEXT PAGE RUN DATE: 03/01/22 [facility] PAGE 2 RUN TIME: 1801 Specimen Inquiry RUN USER: INTERFACE SPEC #: [id number] PATIENT: FREDDIE SAUCEDO #[id number] (Continued) ------- GROSS DESCRIPTION A. Antrum and body biopsy. It consists of 4 tissue fragments measuring 2-5 mm. All as A1. B. Distal esophageal biopsy. It consists of 2 tissue fragments measuring 3 mm each. Allas B1. Technical component performed at [id number] , [place] [address] Unless gross only, the diagnosis is based [...] ---- Signed SIGNATURE ON Obdulio Hart 03/01/22 1801 END OF REPORT BASIC METABOLIC [id number] 08:13:00 Test Item Value Reference Range Interpretation [...] MG/DL 8.5-10.1 N - XR CHEST 2 [id number] 13:28:00 [facility] : 1955 Sex: F Name: [place]DIE [place] : 1955 Age/S: 66 / F [address] [facility] Unit #: [id number] Loc: [place] [address] Phys: Adam King MD Acct: [id number] Dis Date: Status: [place] [facility] [place] #: [phone] Exam Date: 02/24/2022 1253 FAX #: Reason: PRE OP EXAMS: CPT: [id number] XR CHEST 2 V 24749 Fluoro Time: DAP (Gy m2): Air Kerma [...] PAGE 1 Signed Report Name: FREDDIE SAUCEDO [place] : 1955 Age/S: 66 / F [address] [facility] Unit #: [id number] Loc: [place], [place] Phys: Adam King MD Acct: [id number] Dis Date: Status: [facility] [place] #: [phone] Exam Date: 02/24/2022 1253 FAX #: Reason: PRE OP EXAMS: CPT: [id number] XR CHEST 2 V 40438 Fluoro Time: DAP (Gy m2): Air Kerma (mGy): (Continued) Technologist: Priya Lemos, RT (R)(CT) Trnscb Date/Time: 02/24/2022 (2945) MikelR.TS14 Orig Print D/T: S: 02/24/2022 (3928) PAGE 2 Signed ReportBASIC METABOLIC [id number] 12:55:00 Test Item Value Reference Range Interpretation [...] 10.5 MG/DL 8.5-10.1 H COVID 19 INHOUSE [id number] 12:52:00 Test Item Value Reference Range Interpretation Comments COVID 19 INHOUSE AG NEGATIVE Negative Per marshal facturer, (test code = negative result s should [id number]) be treated aspr esumptive and, if inconsi [...] and symptoms co nsistent with COVID-19. PROTHROMBIN [id number] 12:44:00 Test Item Value Reference Range Interpretation [...] (to prevent recurrent infar ct). THROMBOPLASTIN TIME [id number] 12:44:00 Test Item Value Reference Range Interpretation Comments THROMBOPLASTIN TIME PARTIAL 36.2 SECONDS 26-35 H (test code = PTT) CBC W/AUTO [id number] 12:43:00 Test Item Value Reference Range Interpretation [...] in Respiratory specimen by DANIEL with probe [id number] 23:10:10 Test Item Value Reference Range Interpretation Comments SARS coronavirus RNA [Presence] Not detected in Isolate by DANIEL with probe detection (test code = 96242-3) Whether patient is employed in a No healthcare setting (test code = 76146-9) Whether the patient has symptoms Yes related to condition of interest (test code = 56746-5) Whether the patient was No hospitalized for condition of interest (test code = 00059-1) Whether the patient was admitted No to intensive care unit (ICU) for condition of interest (test code = 88935-0) Whether patient resides in a No congregate care setting (test code = 33215-5) status (test code = No 21313-4) Date and time of symptom onset Unknown (test code = 79943-3) [facility] (COVID-19) RNA [Presence] in Respiratory specimen by DANIEL with probe [id number] 23:10:10 Test Item Value Reference Range Interpretation Comments SARS-CoV-2 (COVID-19) RNA Not detected [Presence] in Respiratory specimen by DANIEL with probe detection (test code = 86172-2) Whether patient is employed in a No healthcare setting (test code = 78134-4) Whether the patient has symptoms Yes related to condition of interest (test code = 05427-9) Whether the patient was No hospitalized for condition of interest (test code = 85977-7) Whether the patient was admitted No to intensive care unit (ICU) for condition of interest (test code = 30429-9) Whether patient resides in a No congregate care setting (test code = 31380-2) status (test code = No 91933-9) Date and time of symptom onset Unknown (test code = 92859-7) [facility]-CoV-2 (COVID-19) RNA [Presence] in Respiratory specimen by DANIEL with probe [id number] 22:34:30 Test Item Value Reference Range Interpretation Comments SARS-CoV-2 (COVID-19) RNA Not detected Not-Detected [Presence] in Respiratory specimen by DANIEL with probe detection (test code = 10122-6) Whether patient is employed in a healthcare setting (test code = 85210-7) Whether the patient has symptoms related to condition of interest (test code = 37173-0) Patient was hospitalized because of this condition (test code = 30040-7) Whether the patient was admitted to intensive care unit (ICU) for condition of interest (test code = 06072-8) Whether patient resides in a congregate care setting (test code = 15553-2) [facility]-CoV-2 (COVID-19) RNA [Presence] in Respiratory specimen by DANIEL with probe [id number] 22:35:42 Test Item Value Reference Range Interpretation Comments SARS-CoV-2 (COVID-19) RNA Not detected Not-Detected [Presence] in Respiratory specimen by DANIEL with probe detection (test code = 45985-3) Whether patient is employed in a healthcare setting (test code = 15974-0) Whether the patient has symptoms related to condition of interest (test code = 13767-5) Patient was hospitalized because of this condition (test code = 85528-9) Whether the patient was admitted to intensive care unit (ICU) for condition of interest (test code = 65269-0) Whether patient resides in a congregate care setting (test code = 33874-6) [facility]-CoV-[facility] (COVID-19) RNA [Presence] in Respiratory specimen by DANIEL with probe [id number] 22:46:10 Test Item Value Reference Range Interpretation Comments SARS-CoV-2 (COVID-19) RNA Not detected Not-Detected [Presence] in Respiratory specimen by DANIEL with probe detection (test code = 51915-7) Whether patient is employed in a healthcare setting (test code = 38472-0) Whether the patient has symptoms related to condition of interest (test code = 69813-3) Patient was hospitalized because of this condition (test code = 09822-4) Whether the patient was admitted to intensive care unit (ICU) for condition of interest (test code = 27293-2) Whether patient resides in a congregate care setting (test code = 14173-0) [facility]) RNA [Presence] in Respiratory specimen by DANIEL with probe touemezko3131-25-04 01:54:24 Test Item Value Reference Range Interpretation Comments SARS-CoV-2 (COVID-19) RNA Not detected Not-Detected [Presence] in Respiratory specimen by DANIEL with probe detection (test code = 54997-3) Whether patient is employed in a healthcare setting (test code = 21211-9) Whether the patient has symptoms related to condition of interest (test code = 68678-8) Patient was hospitalized because of this condition (test code = 47262-1) Whether the patient was admitted to intensive care unit (ICU) for condition of interest (test code = 53280-4) Whether patient resides in a congregate care setting (test code = 89830-9) [facility]-CoV[facility] (COVID-19) RNA [Presence] in Respiratory specimen by DANIEL with probe snhiocbts1068-55-54 21:44:06 Test Item Value Reference Range Interpretation Comments SARS-CoV-2 (COVID-19) RNA Not detected Not-Detected [Presence] in Respiratory specimen by DANIEL with probe detection (test code = 35359-9) Whether patient is employed in a healthcare setting (test code = 98604-6) Whether the patient has symptoms related to condition of interest (test code = 28937-4) Patient was hospitalized because of this condition (test code = 53528-9) Whether the patient was admitted to intensive care unit (ICU) for condition of interest (test code = 08623-0) Whether patient resides in a congregate care setting (test code = 31840-8) [facility]-CoV-2 (COVID-19) RNA [Presence] in Respiratory specimen by DANIEL with probe phtdmxoss0484-87-42 00:36:59 Test Item Value Reference Range Interpretation Comments SARS-CoV-2 (COVID-19) RNA Not detected Not-Detected [Presence] in Respiratory specimen by DANIEL with probe detection (test code = 08622-5) [facility]-CoV-2 (COVID-19) RNA [Presence] in Respiratory specimen by DANIEL with probe awtnoeuko0098-71-91 17:35:35 Test Item Value Reference Range Interpretation Comments SARS-CoV-2 (COVID-19) RNA Not detected Not-Detected [Presence] in Respiratory specimen by DANIEL with probe detection (test code = 17983-9) [facility]-CoV-2 (COVID-19) RNA [Presence] in Respiratory specimen by DANIEL with probe yleuuqoxs0848-79-53 18:03:30 Test Item Value Reference Range Interpretation Comments SARS-CoV-2 (COVID-19) RNA Not detected Not-Detected [Presence] in Respiratory specimen by DANIEL with probe detection (test code = 12476-3) [facility]-CoV-2 (COVID-19) RNA [Presence] in Respiratory specimen by DANIEL with probe npapmmnsu4304-42-62 10:06:03 Test Item Value Reference Range Interpretation Comments SARS-CoV-2 (COVID-19) RNA Not detected Not-Detected [Presence] in Respiratory specimen by DANIEL with probe detection (test code = 41116-0) [facility]-CoV-2 (COVID-19) RNA [Presence] in Respiratory specimen by DANIEL with probe vlsqjiupd5840-85-44 05:11:58 Test Item Value Reference Range Interpretation Comments SARS-CoV-2 (COVID-19) RNA Not detected Not-Detected [Presence] in Respiratory specimen by DANIEL with probe detection (test code = 91583-7) [facility]-CoV-2 (COVID-19) RNA [Presence] in Respiratory specimen by DANIEL with probe eoqbsjnqn3749-98-89 03:34:16 Test Item Value Reference Range Interpretation Comments SARS-CoV-2 (COVID-19) RNA Not detected Not-Detected [Presence] in Respiratory specimen by DANIEL with probe detection (test code = 10270-5) [facility]-CoV-2 (COVID-19) RNA [Presence] in Respiratory specimen by DANIEL with probe kmfrjtiej8341-73-95 10:06:41 Test Item Value Reference Range Interpretation Comments SARS-CoV-2 (COVID-19) RNA Not detected Not-Detected [Presence] in Respiratory specimen by DANIEL with probe detection (test code = 61306-9) [facility] 12:[facility] Test Item Value Reference Range Interpretation Comments Chol (test code = Chol) 129 [facility]VicevweGPTIHQ1616-11-39 12:33:00 Test Item Value Reference Range Interpretation Comments HDL (test code = HDL) 37 [facility] CenterJqlqdbaPRDWSJ9804-03-03 12:33:00 Test Item Value Reference Range Interpretation Comments Trig (test code = Trig) 76 [facility] CenterLfnfujbVYZUJB1061-19-54 12:33:00 Test Item Value Reference Range Interpretation Comments LDL (Calculated) (test code = LDL 76 (Calculated)) [facility] CenterPvudhsnEIMHPA2452-79-06 12:33:00 Test Item Value Reference Range Interpretation Comments CHD Risk (test code = CHD Risk) 3.5 [facility]PsxupmcSQCYEC2725-67-95 12:33:00 Test Item Value Reference Range Interpretation Comments Non HDL Chol (test code = Non HDL Chol) 92 [facility] CenterOstwxqjZZOPNL3672-17-30 12:33:00 Test Item Value Reference Range Interpretation Comments Chol (test code = Chol) 129 [facility] CenterZxbqbixJNOWSO0297-36-39 12:33:00 Test Item Value Reference Range Interpretation Comments HDL (test code = HDL) 37 [facility] CenterXjnouaoOHWMKK1416-64-41 12:33:00 Test Item Value Reference Range Interpretation Comments Trig (test code = Trig) 76 [facility] CenterRhesumsXKIAOP2025-83-23 12:33:00 Test Item Value Reference Range Interpretation Comments LDL (Calculated) (test code = LDL 76 (Calculated)) [facility] CenterQcstgsoFQJOMI1256-60-81 12:33:00 Test Item Value Reference Range Interpretation Comments CHD Risk (test code = CHD Risk) 3.5 [facility] CenterYwhsnxzNUGSES3515-87-02 12:33:00 Test Item Value Reference Range Interpretation Comments Non HDL Chol (test code = Non HDL Chol) 92 [facility] CenterBbsvgraXLBDQV4201-87-92 12:33:00 Test Item Value Reference Range Interpretation Comments Chol (test code = Chol) 129 [facility] CenterIptwwmyKYIHYU4332-45-53 12:33:00 Test Item Value Reference Range Interpretation Comments HDL (test code = HDL) 37 [facility] CenterNedzwhmIYTGZZ0103-43-58 12:33:00 Test Item Value Reference Range Interpretation Comments Trig (test code = Trig) 76 [facility] CenterMunamrlCMYANV2013-51-99 12:33:00 Test Item Value Reference Range Interpretation Comments LDL (Calculated) (test code = LDL 76 (Calculated)) [facility] CenterNvwlwayHMJZRR6834-69-04 12:33:00 Test Item Value Reference Range Interpretation Comments CHD Risk (test code = CHD Risk) 3.5 [facility] CenterVahjtevQANCIO0774-43-98 12:33:00 Test Item Value Reference Range Interpretation Comments Non HDL Chol (test code = Non HDL Chol) 92 [facility] CenterQdtmrnzJZSBZS9062-59-18 12:33:00 Test Item Value Reference Range Interpretation Comments Chol (test code = Chol) 129 [facility] CenterGdjqcebSLUTWP8622-19-17 12:33:00 Test Item Value Reference Range Interpretation Comments HDL (test code = HDL) 37 [facility] CenterAydligkPOKGNJ6902-90-44 12:33:00 Test Item Value Reference Range Interpretation Comments Trig (test code = Trig) 76 [facility] CenterGwkvdsrZUZVLM9674-49-28 12:33:00 Test Item Value Reference Range Interpretation Comments LDL (Calculated) (test code = LDL 76 (Calculated)) [facility] CenterLkfraukURVIOT3223-16-55 12:33:00 Test Item Value Reference Range Interpretation Comments CHD Risk (test code = CHD Risk) 3.5 [facility] CenterXelwfwfFHZBVT6629-25-41 12:33:00 Test Item Value Reference Range Interpretation Comments Non HDL Chol (test code = Non HDL Chol) 92 [facility] CenterYwbzqiiGUENLU5439-70-87 12:33:00 Test Item Value Reference Range Interpretation Comments Chol (test code = Chol) 129 [facility] CenterIaophvcHWEZTO0111-48-94 12:33:00 Test Item Value Reference Range Interpretation Comments HDL (test code = HDL) 37 [facility] CenterNlwfpybVVYJZH0075-76-63 12:33:00 Test Item Value Reference Range Interpretation Comments Trig (test code = Trig) 76 [facility] CenterIqxbgalHVNVMX0151-47-81 12:33:00 Test Item Value Reference Range Interpretation Comments LDL (Calculated) (test code = LDL 76 (Calculated)) [facility] CenterGbaciedXZDYEX0301-36-90 12:33:00 Test Item Value Reference Range Interpretation Comments CHD Risk (test code = CHD Risk) 3.5 [facility] CenterXrflcjkBXITLN7353-42-89 12:33:00 Test Item Value Reference Range Interpretation Comments Non HDL Chol (test code = Non HDL Chol) 92 [facility] CenterRfignjjBHSWYQ6666-78-87 12:33:00 Test Item Value Reference Range Interpretation Comments Chol (test code = Chol) 129 [facility] CenterXpqbsouRCHDGO1601-01-56 12:33:00 Test Item Value Reference Range Interpretation Comments HDL (test code = HDL) 37 [facility] CenterRkodlxcLNPLTH7314-94-40 12:33:00 Test Item Value Reference Range Interpretation Comments Trig (test code = Trig) 76 [facility] CenterMmjzuijZZZKON3027-18-26 12:33:00 Test Item Value Reference Range Interpretation Comments LDL (Calculated) (test code = LDL 76 (Calculated)) [facility] CenterOloihtcBTFNFJ8888-87-80 12:33:00 Test Item Value Reference Range Interpretation Comments CHD Risk (test code = CHD Risk) 3.5 [facility] CenterGrxmnaiNSVFOV6368-71-73 12:33:00 Test Item Value Reference Range Interpretation Comments Non HDL Chol (test code = Non HDL Chol) 92 [facility] CenterLghjnouOJNXJW1454-54-64 12:33:00 Test Item Value Reference Range Interpretation Comments Chol (test code = Chol) 129 [facility] CenterNplxwjuSWPGQI3505-45-09 12:33:00 Test Item Value Reference Range Interpretation Comments HDL (test code = HDL) 37 [facility] CenterRltjtcvOPJAYP3661-56-05 12:33:00 Test Item Value Reference Range Interpretation Comments Trig (test code = Trig) 76 [place] [address]-10-14 12:33:00 Test Item Value Reference Range Interpretation Comments LDL (Calculated) (test code = LDL 76 (Calculated)) [facility] CenterXttgegiEWICZK0923-04-11 12:33:00 Test Item Value Reference Range Interpretation Comments CHD Risk (test code = CHD Risk) 3.5 [facility] CenterIqkwxstOMCJKQ5035-68-10 12:33:00 Test Item Value Reference Range Interpretation Comments Non HDL Chol (test code = Non HDL Chol) 92 [facility] CenterLefkdvwOKAOAW5204-38-85 12:33:00 Test Item Value Reference Range Interpretation Comments Chol (test code = Chol) 129 [facility] CenterTghikyoNOKAVL9854-17-02 12:33:00 Test Item Value Reference Range Interpretation Comments HDL (test code = HDL) 37 [facility] CenterGfzclxlIZHYJG7352-10-61 12:33:00 Test Item Value Reference Range Interpretation Comments Trig (test code = Trig) 76 [facility] CenterAqyqglwUKJSJC3369-55-34 12:33:00 Test Item Value Reference Range Interpretation Comments LDL (Calculated) (test code = LDL 76 (Calculated)) [facility] CenterWyzkfyuIEWJUB3644-59-02 12:33:00 Test Item Value Reference Range Interpretation Comments CHD Risk (test code = CHD Risk) 3.5 [facility] CenterEkmqkorJZXOIG3514-15-84 12:33:00 Test Item Value Reference Range Interpretation Comments Non HDL Chol (test code = Non HDL Chol) 92 [facility] [employer] EXPKR9245-18-50 14:47:00 Test Item Value Reference Range Interpretation Comments Vitamin D, 25-OH, Total (test code = 37 30-100 Vitamin D, 25-OH, Total) [facility] [employer] JFFTH2476-52-47 14:47:00 Test Item Value Reference Range Interpretation Comments U Creat mg/dL (test code = U Creat 114 20-275 mg/dL) [facility] [employer] AGCNJ7291-56-44 14:47:00 Test Item Value Reference Range Interpretation Comments U Prot/Creat (test code = U Prot/Creat) 430 21-161 [facility] GBSDE7023-06-54 14:47:00 Test Item Value Reference Range Interpretation Comments U Prot/Creat (test code = U 0.430 1 0.021-0.161 Prot/Creat) [facility]2020-08-06 14:47:00 Test Item Value Reference Range Interpretation Comments U Protein (test code = U Protein) 49 5-24 [place] 475700-08-06 14:47:00 Test Item Value Reference Range Interpretation Comments Glucose Lvl (test code = Glucose Lvl) 103 65-99 [place] 475700-08-06 14:47:00 Test Item Value Reference Range Interpretation Comments BUN (test code = BUN) 24 7-25 [place] 475700-08-06 14:47:00 Test Item Value Reference Range Interpretation Comments Creatinine Lvl (test code = Creatinine 1.32 0.50-0.99 Lvl) [place] 475700-08-06 14:47:00 Test Item Value Reference Range Interpretation Comments eGFR NON-AFR. SOUTH AFRICAN (test code = 43 eGFR NON-AFR. SOUTH AFRICAN) [place] 475700-08-06 14:47:00 Test Item Value Reference Range Interpretation Comments eGFR (test code = eGFR 50 ) [place] 475700-08-06 14:47:00 Test Item Value Reference Range Interpretation Comments B/C Ratio (test code = B/C Ratio) 18 6-22 [place] 475700-08-06 14:47:00 Test Item Value Reference Range Interpretation Comments Sodium Lvl (test code = Sodium Lvl) 138 135-146 [place] 475700-08-06 14:47:00 Test Item Value Reference Range Interpretation Comments Potassium Lvl (test code = Potassium 4.4 3.5-5.3 Lvl) [place] 475700-08-06 14:47:00 Test Item Value Reference Range Interpretation Comments Chloride Lvl (test code = Chloride Lvl) 102 98-110 [place] 475700-08-06 14:47:00 Test Item Value Reference Range Interpretation Comments CO2 (test code = CO2) 30 20-32 [place] 475700-08-06 14:47:00 Test Item Value Reference Range Interpretation Comments Calcium Lvl (test code = Calcium Lvl) 9.4 8.6-10.4 [place] 475700-08-06 14:47:00 Test Item Value Reference Range Interpretation Comments Phosphorus (test code = Phosphorus) 4.8 2.5-4.5 [facility]2020-08-06 14:47:00 Test Item Value Reference Range Interpretation Comments Albumin Lvl (test code = Albumin Lvl) 3.9 3.6-5.1 [facility] CenterTizezclIXYSTGGFXI9235-28-35 14:47:00 Test Item Value Reference Range Interpretation Comments Plt Count Estimated (test code = DECREASED Plt Count Estimated) [facility] CenterPcmusknIGPNTVJOHQ5711-12-53 14:47:00 Test Item Value Reference Range Interpretation Comments WBC X 10x3 (test code = WBC X 10x3) 7.2 3.8-10.8 [facility] CenterZlpjtxsVCRQBSCJQI4044-94-93 14:47:00 Test Item Value Reference Range Interpretation Comments RBC X 10x6 (test code = RBC X 10x6) 3.71 3.80-5.10 [facility] CenterVelotwfTLTTIZDWNU1385-02-52 14:47:00 Test Item Value Reference Range Interpretation Comments Hgb (test code = Hgb) 10.7 11.7-15.5 [facility] CenterIjacywhLNZLNXOZMD2215-29-65 14:47:00 Test Item Value Reference Range Interpretation Comments Hct (test code = Hct) 33.9 35.0-45.0 [facility] CenterSksirlsNQNMDTYXAC3427-73-13 14:47:00 Test Item Value Reference Range Interpretation Comments MCV (test code = MCV) 91.4 80.0-100.0 [facility] CenterJufugvuWIYHPVQCZO4091-65-52 14:47:00 Test Item Value Reference Range Interpretation Comments MCH (test code = MCH) 28.8 pg 27.0-33.0 [facility] CenterOsixrcdGOMSNYVBHP2011-33-73 14:47:00 Test Item Value Reference Range Interpretation Comments MCHC (test code = MCHC) 31.6 32.0-36.0 [facility] CenterXtmnjgaWACFGASSJT2528-94-95 14:47:00 Test Item Value Reference Range Interpretation Comments RDW (test code = RDW) 13.9 11.0-15.0 [facility] CenterEkawugfVXWYEJLKRT3902-88-46 14:47:00 Test Item Value Reference Range Interpretation Comments Platelet (test code = Platelet) 110 140-400 [facility] CenterFpxgwciHQLUSZLNDN0379-38-39 14:47:00 Test Item Value Reference Range Interpretation Comments MPV (test code = MPV) 11.7 7.5-12.5 [facility]LbweyobQCBENXETOM0760-75-16 14:47:00 Test Item Value Reference Range Interpretation Comments Neutrophils # (test code = Neutrophils 5414 9112-6760 #) [facility] CenterBwanbmcJSTYGSKDXF9882-76-33 14:47:00 Test Item Value Reference Range Interpretation Comments Lymphocytes # (test code = Lymphocytes 3693 844-0583 #) [facility] IrvingTjsyenbOFOSXEVTXS9151-83-14 14:47:00 Test Item Value Reference Range Interpretation Comments Monocytes # (test code = Monocytes #) 461 200-950 [facility] IrvingGvgmsiiJGXTAXNGSS2054-75-73 14:47:00 Test Item Value Reference Range Interpretation Comments Eosinophils # (test code = Eosinophils 122 15-500 #) [facility] HospitalCoqmtjaDHZBHCUICD9244-51-62 14:47:00 Test Item Value Reference Range Interpretation Comments Basophils # (test code 50 See_Comment [Aut omated message] The = Basophils #) system which generated this result tra nsmitted reference range : <=200. The reference r edy was not used to int erpret this result as normal/abnormal . [facility] CenterHbqfgkgBKDJOFZMKG0618-23-04 14:47:00 Test Item Value Reference Range Interpretation Comments Segs (test code = Segs) 75.2 [facility] HospitalCdgrageYLWZVGZQOD7524-00-03 14:47:00 Test Item Value Reference Range Interpretation Comments Lymphocytes (test code = Lymphocytes) 16.0 [facility] HospitalAiijukcDFTJRPIMJB4878-35-49 14:47:00 Test Item Value Reference Range Interpretation Comments Monocytes (test code = Monocytes) 6.4 [facility] CenterKyxqjtxSNIENIQTEI5775-60-25 14:47:00 Test Item Value Reference Range Interpretation Comments Eosinophils (test code = Eosinophils) 1.7 [facility] IrvingLktiqijABWPEVLTUU7829-35-95 14:47:00 Test Item Value Reference Range Interpretation Comments Basophils (test code = Basophils) 0.7 [facility] IrvingannREFER[facility] LAB RZGTKDW9215-57-80 14:47:00 Test Item Value Reference Range Interpretation Comments Result 2 (Urine Culture) See Result Comment (test code = Result 2 (Urine Culture)) [facility] [id number] 14:47:00 Test Item Value Reference Range Interpretation Comments UA Color (test code = UA Color) YELLOW [facility] QCMCB7722-95-85 14:47:00 Test Item Value Reference Range Interpretation Comments UA Turbidity (test code = UA CLOUDY Turbidity) [facility] VSEEM3601-59-44 14:47:00 Test Item Value Reference Range Interpretation Comments UA Spec Grav (test code = UA Spec 1.017 1 1.001-1.035 Grav) [facility] WJXQZ2808-98-92 14:47:00 Test Item Value Reference Range Interpretation Comments UA pH (test code = UA pH) 5.5 1 5.0-8.0 [facility] [id number] 14:47:00 Test Item Value Reference Range Interpretation Comments UA Glucose (test code = UA Glucose) NEGATIVE [facility] [id number] 14:47:00 Test Item Value Reference Range Interpretation Comments UA Bili (test code = UA Bili) NEGATIVE [facility] RMQUG6719-96-10 14:47:00 Test Item Value Reference Range Interpretation Comments UA Ketones (test code = UA Ketones) NEGATIVE [facility] TVOPO2450-95-26 14:47:00 Test Item Value Reference Range Interpretation Comments UA Blood (test code = UA Blood) 1+ [facility] GGJHJ7350-83-95 14:47:00 Test Item Value Reference Range Interpretation Comments UA Protein (test code = UA Protein) 1+ [facility] WPBFW2667-17-14 14:47:00 Test Item Value Reference Range Interpretation Comments UA Nitrite (test code = UA Nitrite) POSITIVE [facility] [id number] 14:47:00 Test Item Value Reference Range Interpretation Comments UA Leuk Est (test code = UA Leuk Est) 2+ [facility] WDWEC2366-95-79 14:47:00 Test Item Value Reference Range Interpretation Comments UA WBC (test code = UA WBC) > OR = 60 [facility] SVQDR0481-48-85 14:47:00 Test Item Value Reference Range Interpretation Comments UA RBC (test code = UA RBC) 0-2 [facility] RNMPA4877-80-75 14:47:00 Test Item Value Reference Range Interpretation Comments UA Sq Epi (test code = UA Sq Epi) NONE SEEN [facility] CGSPD6485-12-00 14:47:00 Test Item Value Reference Range Interpretation Comments UA Bacteria (test code = UA Bacteria) [facility] IGUUX4203-28-48 14:47:00 Test Item Value Reference Range Interpretation Comments UA Hyal Cast (test code = UA Hyal NONE SEEN Cast) [facility] AND CMCKD4729-22-40 14:47:00 Test Item Value Reference Range Interpretation Comments UA Reflex (test code CULTURE INDICATED - = UA Reflex) RESULTS TO FOLLOW [facility]2020-08-06 14:47:00 Test Item Value Reference Range Interpretation Comments U Creat mg/dL (test code = U Creat 114 20-275 mg/dL) [place] 823000-08-06 14:47:00 Test Item Value Reference Range Interpretation Comments U Alb (test code = U Alb) 16.7 [place] 823000-08-06 14:47:00 Test Item Value Reference Range Interpretation Comments U Alb/Crea (test code = U Alb/Crea) 146 [facility]2020-08-06 14:47:00 Test Item Value Reference Range Interpretation Comments Vitamin D, 25-OH, Total (test code = 37 30-100 Vitamin D, 25-OH, Total) [place] 475700-08-06 14:47:00 Test Item Value Reference Range Interpretation Comments U Creat mg/dL (test code = U Creat 114 20-275 mg/dL) [place] 475700-08-06 14:47:00 Test Item Value Reference Range Interpretation Comments U Prot/Creat (test code = U Prot/Creat) 430 21-161 [facility]2020-08-06 14:47:00 Test Item Value Reference Range Interpretation Comments U Prot/Creat (test code = U 0.430 1 0.021-0.161 Prot/Creat) [place] 475700-08-06 14:47:00 Test Item Value Reference Range Interpretation Comments U Protein (test code = U Protein) 49 5-24 [place] 475700-08-06 14:47:00 Test Item Value Reference Range Interpretation Comments Glucose Lvl (test code = Glucose Lvl) 103 65-99 [place] 475700-08-06 14:47:00 Test Item Value Reference Range Interpretation Comments BUN (test code = BUN) 24 7-25 [place] 475700-08-06 14:47:00 Test Item Value Reference Range Interpretation Comments Creatinine Lvl (test code = Creatinine 1.32 0.50-0.99 Lvl) [place] 475700-08-06 14:47:00 Test Item Value Reference Range Interpretation Comments eGFR NON-AFR. SOUTH AFRICAN (test code = 43 eGFR NON-AFR. SOUTH AFRICAN) [place] 475700-08-06 14:47:00 Test Item Value Reference Range Interpretation Comments eGFR (test code = eGFR 50 ) [place] 475700-08-06 14:47:00 Test Item Value Reference Range Interpretation Comments B/C Ratio (test code = B/C Ratio) 18 6-22 [place] 475700-08-06 14:47:00 Test Item Value Reference Range Interpretation Comments Sodium Lvl (test code = Sodium Lvl) 138 135-146 [place] 475700-08-06 14:47:00 Test Item Value Reference Range Interpretation Comments Potassium Lvl (test code = Potassium 4.4 3.5-5.3 Lvl) [place] 475700-08-06 14:47:00 Test Item Value Reference Range Interpretation Comments Chloride Lvl (test code = Chloride Lvl) 102 98-110 [place] 475700-08-06 14:47:00 Test Item Value Reference Range Interpretation Comments CO2 (test code = CO2) 30 20-32 [place] 475700-08-06 14:47:00 Test Item Value Reference Range Interpretation Comments Calcium Lvl (test code = Calcium Lvl) 9.4 8.6-10.4 [place] 475700-08-06 14:47:00 Test Item Value Reference Range Interpretation Comments Phosphorus (test code = Phosphorus) 4.8 2.5-4.5 [place] [address]-08-06 14:47:00 Test Item Value Reference Range Interpretation Comments Albumin Lvl (test code = Albumin Lvl) 3.9 3.6-5.1 [place] 025090-08-06 14:47:00 Test Item Value Reference Range Interpretation Comments Plt Count Estimated (test code = DECREASED Plt Count Estimated) [place] 025090-08-06 14:47:00 Test Item Value Reference Range Interpretation Comments WBC X 10x3 (test code = WBC X 10x3) 7.2 3.8-10.8 [facility] CenterUybgpnzERMUYPOHXQ4208-22-38 14:47:00 Test Item Value Reference Range Interpretation Comments RBC X 10x6 (test code = RBC X 10x6) 3.71 3.80-5.10 [facility] CenterLojlpneWBYOANIHQQ2923-91-42 14:47:00 Test Item Value Reference Range Interpretation Comments Hgb (test code = Hgb) 10.7 11.7-15.5 [facility] CenterJofpxblGGFSUJVMCD2096-44-29 14:47:00 Test Item Value Reference Range Interpretation Comments Hct (test code = Hct) 33.9 35.0-45.0 [facility] CenterHtqgjseGSZMZVYCDV7063-74-41 14:47:00 Test Item Value Reference Range Interpretation Comments MCV (test code = MCV) 91.4 80.0-100.0 [facility] CenterTdfypqsEXJCKMCAJB6094-07-93 14:47:00 Test Item Value Reference Range Interpretation Comments MCH (test code = MCH) 28.8 pg 27.0-33.0 [facility] CenterEivcohmKBICSHUVMS0889-15-81 14:47:00 Test Item Value Reference Range Interpretation Comments MCHC (test code = MCHC) 31.6 32.0-36.0 [facility] CenterRtiomxvEUPXDXKRQK6943-93-54 14:47:00 Test Item Value Reference Range Interpretation Comments RDW (test code = RDW) 13.9 11.0-15.0 [facility] [facility] CenterRgoieqoDJRTWEGEHZ1834-68-02 14:47:00 Test Item Value Reference Range Interpretation Comments Platelet (test code = Platelet) 110 140-400 [facility] CenterFulzboxLDNRSJLUTO4782-76-46 14:47:00 Test Item Value Reference Range Interpretation Comments MPV (test code = MPV) 11.7 7.5-12.5 [facility] CenterYrkqhmvJAYYKEZJSO5980-48-47 14:47:00 Test Item Value Reference Range Interpretation Comments Neutrophils # (test code = Neutrophils 5414 5314-9209 #) [facility] CenterZuqrlvxYZJGRFZMAY0851-66-19 14:47:00 Test Item Value Reference Range Interpretation Comments Lymphocytes # (test code = Lymphocytes [phone] #) [facility] CenterArtduyiDYPSMULZDG4287-41-19 14:47:00 Test Item Value Reference Range Interpretation Comments Monocytes # (test code = Monocytes #) 461 200-950 [facility] CenterYwpvxwqEZMPBMOXWI5591-31-97 14:47:00 Test Item Value Reference Range Interpretation Comments Eosinophils # (test code = Eosinophils 122 15-500 #) [facility]DtwznpuLERWJODZRV9043-15-46 14:47:00 Test Item Value Reference Range Interpretation Comments Basophils # (test code 50 See_Comment [Aut omated message] The = Basophils #) system which generated this result tra nsmitted reference range : <=200. The reference r edy was not used to int erpret this result as normal/abnormal . [facility] CenterMywqeskPIJPSZPMNM7345-51-53 14:47:00 Test Item Value Reference Range Interpretation Comments Segs (test code = Segs) 75.2 [facility] HospitalHxzdftoEAIMYHVGRW9972-86-28 14:47:00 Test Item Value Reference Range Interpretation Comments Lymphocytes (test code = Lymphocytes) 16.0 [facility] HospitalZdlaeztAOFHRMXINX6926-67-67 14:47:00 Test Item Value Reference Range Interpretation Comments Monocytes (test code = Monocytes) 6.4 [facility] HospitalBcvofpgLVMMVCNXJW8533-36-50 14:47:00 Test Item Value Reference Range Interpretation Comments Eosinophils (test code = Eosinophils) 1.7 [facility] IrvingRimtzlaTCIMDIGXIY3004-61-38 14:47:00 Test Item Value Reference Range Interpretation Comments Basophils (test code = Basophils) 0.7 [facility] [id number] 14:47:00 Test Item Value Reference Range Interpretation Comments Result 2 (Urine Culture) See Result Comment (test code = Result 2 (Urine Culture)) [facility] AND [id number] 14:47:00 Test Item Value Reference Range Interpretation Comments UA Color (test code = UA Color) YELLOW [facility] AND [id number] 14:47:00 Test Item Value Reference Range Interpretation Comments UA Turbidity (test code = UA CLOUDY Turbidity) [facility] AND [id number] 14:47:00 Test Item Value Reference Range Interpretation Comments UA Spec Grav (test code = UA Spec 1.017 1 1.001-1.035 Grav) [facility] AND [id number] 14:47:00 Test Item Value Reference Range Interpretation Comments UA pH (test code = UA pH) 5.5 1 5.0-8.0 [facility] AND [id number] 14:47:00 Test Item Value Reference Range Interpretation Comments UA Glucose (test code = UA Glucose) [facility]IVE [facility] [id number] 14:47:00 Test Item Value Reference Range Interpretation Comments UA Bili (test code = UA Bili) NEGATIVE [facility] [id number] 14:47:00 Test Item Value Reference Range Interpretation Comments UA Ketones (test code = UA Ketones) NEGATIVE [facility] [id number] 14:47:00 Test Item Value Reference Range Interpretation Comments UA Blood (test code = UA Blood) 1+ [facility] [id number] 14:47:00 Test Item Value Reference Range Interpretation Comments UA Protein (test code = UA Protein) 1+ [facility] [id number] 14:47:00 Test Item Value Reference Range Interpretation Comments UA Nitrite (test code = UA Nitrite) POSITIVE [facility] [id number] 14:47:00 Test Item Value Reference Range Interpretation Comments UA Leuk Est (test code = UA Leuk Est) 2+ [facility] [id number] 14:47:00 Test Item Value Reference Range Interpretation Comments UA WBC (test code = UA WBC) > OR = 60 [facility] [id number] 14:47:00 Test Item Value Reference Range Interpretation Comments UA RBC (test code = UA RBC) 0-2 [facility] [id number] 14:47:00 Test Item Value Reference Range Interpretation Comments UA Sq Epi (test code = UA Sq Epi) NONE SEEN [facility] [id number] 14:47:00 Test Item Value Reference Range Interpretation Comments UA Bacteria (test code = UA Bacteria) MANY [facility] [id number] 14:47:00 Test Item Value Reference Range Interpretation Comments UA Hyal Cast (test code = UA Hyal NONE SEEN Cast) [facility] [id number] 14:47:00 Test Item Value Reference Range Interpretation Comments UA Reflex (test code CULTURE INDICATED - = UA Reflex) RESULTS TO FOLLOW [facility] [id number] 14:47:00 Test Item Value Reference Range Interpretation Comments U Creat mg/dL (test code = U Creat 114 20-275 mg/dL) [facility] [id number] 14:47:00 Test Item Value Reference Range Interpretation Comments U Alb (test code = U Alb) 16.7 [place] [address]-08-06 14:47:00 Test Item Value Reference Range Interpretation Comments U Alb/Crea (test code = U Alb/Crea) 146 [place] [address]-08-06 14:47:00 Test Item Value Reference Range Interpretation Comments Vitamin D, 25-OH, Total (test code = 37 30-100 Vitamin D, 25-OH, Total) [place] [address]-08-06 14:47:00 Test Item Value Reference Range Interpretation Comments U Creat mg/dL (test code = U Creat 114 20-275 mg/dL) [place] 475700-08-06 14:47:00 Test Item Value Reference Range Interpretation Comments U Prot/Creat (test code = U Prot/Creat) 430 21-161 [place] [address]-08-06 14:47:00 Test Item Value Reference Range Interpretation Comments U Prot/Creat (test code = U 0.430 1 0.021-0.161 Prot/Creat) [place] 475700-08-06 14:47:00 Test Item Value Reference Range Interpretation Comments U Protein (test code = U Protein) 49 5-24 [place] 475700-08-06 14:47:00 Test Item Value Reference Range Interpretation Comments Glucose Lvl (test code = Glucose Lvl) 103 65-99 [place] 475700-08-06 14:47:00 Test Item Value Reference Range Interpretation Comments BUN (test code = BUN) 24 7-25 [place] [address]-08-06 14:47:00 Test Item Value Reference Range Interpretation Comments Creatinine Lvl (test code = Creatinine 1.32 0.50-0.99 Lvl) [place] 475700-08-06 14:47:00 Test Item Value Reference Range Interpretation Comments eGFR NON-AFR. SOUTH AFRICAN (test code = 43 eGFR NON-AFR. SOUTH AFRICAN) [place] 475700-08-06 14:47:00 Test Item Value Reference Range Interpretation Comments eGFR (test code = eGFR 50 ) [place] 475700-08-06 14:47:00 Test Item Value Reference Range Interpretation Comments B/C Ratio (test code = B/C Ratio) 18 6-22 [place] 475700-08-06 14:47:00 Test Item Value Reference Range Interpretation Comments Sodium Lvl (test code = Sodium Lvl) 138 135-146 [place] 475700-08-06 14:47:00 Test Item Value Reference Range Interpretation Comments Potassium Lvl (test code = Potassium 4.4 3.5-5.3 Lvl) [place] 475700-08-06 14:47:00 Test Item Value Reference Range Interpretation Comments Chloride Lvl (test code = Chloride Lvl) 102 98-110 [place] 475700-08-06 14:47:00 Test Item Value Reference Range Interpretation Comments CO2 (test code = CO2) 30 20-32 [place] 475700-08-06 14:47:00 Test Item Value Reference Range Interpretation Comments Calcium Lvl (test code = Calcium Lvl) 9.4 8.6-10.4 [place] 475700-08-06 14:47:00 Test Item Value Reference Range Interpretation Comments Phosphorus (test code = Phosphorus) 4.8 2.5-4.5 [place] 475700-08-06 14:47:00 Test Item Value Reference Range Interpretation Comments Albumin Lvl (test code = Albumin Lvl) 3.9 3.6-5.1 [place] [address]-08-06 14:47:00 Test Item Value Reference Range Interpretation Comments Plt Count Estimated (test code = DECREASED Plt Count Estimated) [place] 025090-08-06 14:47:00 Test Item Value Reference Range Interpretation Comments WBC X 10x3 (test code = WBC X 10x3) 7.2 3.8-10.8 [place] [address]-08-06 14:47:00 Test Item Value Reference Range Interpretation Comments RBC X 10x6 (test code = RBC X 10x6) 3.71 3.80-5.10 [place] [address]-08-06 14:47:00 Test Item Value Reference Range Interpretation Comments Hgb (test code = Hgb) 10.7 11.7-15.5 [place] [address]-08-06 14:47:00 Test Item Value Reference Range Interpretation Comments Hct (test code = Hct) 33.9 35.0-45.0 [facility] CenterNlkopyhJYEKQEPNZM5175-05-52 14:47:00 Test Item Value Reference Range Interpretation Comments MCV (test code = MCV) 91.4 80.0-100.0 [facility] CenterAcxcbnzZTMVJDPWBG6165-48-31 14:47:00 Test Item Value Reference Range Interpretation Comments MCH (test code = MCH) 28.8 pg 27.0-33.0 [facility] CenterDbhckjqKECAWKBFGZ5365-87-19 14:47:00 Test Item Value Reference Range Interpretation Comments MCHC (test code = MCHC) 31.6 32.0-36.0 [facility] CenterGmpetlqPZEGBEDQOS0409-23-13 14:47:00 Test Item Value Reference Range Interpretation Comments RDW (test code = RDW) 13.9 11.0-15.0 [facility] CenterXqkkmwzVSZMLZTOJE4645-16-27 14:47:00 Test Item Value Reference Range Interpretation Comments Platelet (test code = Platelet) 110 140-400 [facility] CenterJrzyhdqAOSAYYZKIK4584-07-75 14:47:00 Test Item Value Reference Range Interpretation Comments MPV (test code = MPV) 11.7 7.5-12.5 [facility] CenterAegmukpBLKIFNGAQQ4340-49-57 14:47:00 Test Item Value Reference Range Interpretation Comments Neutrophils # (test code = Neutrophils 5414 5433-9257 #) [facility] CenterLfmacbfBCKHUCGWYM5027-55-44 14:47:00 Test Item Value Reference Range Interpretation Comments Lymphocytes # (test code = Lymphocytes 6968 292-8689 #) [facility] CenterZhovowuVBZIRLKUFZ0498-50-71 14:47:00 Test Item Value Reference Range Interpretation Comments Monocytes # (test code = Monocytes #) 461 200-950 [facility] CenterQkpkoezOOTORHBSGE8211-55-50 14:47:00 Test Item Value Reference Range Interpretation Comments Eosinophils # (test code = Eosinophils 122 15-500 #) [facility] CenterTwspjelOQEMKJFUDB3468-88-13 14:47:00 Test Item Value Reference Range Interpretation Comments Basophils # (test code 50 See_Comment [Aut omated message] The = Basophils #) system which generated this result tra nsmitted reference range : <=200. The reference r edy was not used to int erpret this result as normal/abnormal . [facility] CenterZxaavewIKIIRCAESX8921-18-91 14:47:00 Test Item Value Reference Range Interpretation Comments Segs (test code = Segs) 75.2 [facility] CenterYlfbqjyMYPADACMNJ2435-88-82 14:47:00 Test Item Value Reference Range Interpretation Comments Lymphocytes (test code = Lymphocytes) 16.0 [facility] HospitalJycicikASDIXIIPCB2492-28-61 14:47:00 Test Item Value Reference Range Interpretation Comments Monocytes (test code = Monocytes) 6.4 [facility] CenterLwdbgwgEMCFSJQRMP2472-06-61 14:47:00 Test Item Value Reference Range Interpretation Comments Eosinophils (test code = Eosinophils) 1.7 [facility] CenterKwqsrmwDRBLRQPTQS5184-59-94 14:47:00 Test Item Value Reference Range Interpretation Comments Basophils (test code = Basophils) 0.7 [facility]REF[facility] [id number] 14:47:00 Test Item Value Reference Range Interpretation Comments Result 2 (Urine Culture) See Result Comment (test code = Result 2 (Urine Culture)) [facility] AND [id number] 14:47:00 Test Item Value Reference Range Interpretation Comments UA Color (test code = UA Color) YELLOW [facility] AND [id number] 14:47:00 Test Item Value Reference Range Interpretation Comments UA Turbidity (test code = UA CLOUDY Turbidity) [facility] AND [id number] 14:47:00 Test Item Value Reference Range Interpretation Comments UA Spec Grav (test code = UA Spec 1.017 1 1.001-1.035 Grav) [facility] AND [id number] 14:47:00 Test Item Value Reference Range Interpretation Comments UA pH (test code = UA pH) 5.5 1 5.0-8.0 [facility] AND [id number] 14:47:00 Test Item Value Reference Range Interpretation Comments UA Glucose (test code = UA Glucose) NEGATIVE [facility] AND [id number] 14:47:00 Test Item Value Reference Range Interpretation Comments UA Bili (test code = UA Bili) NEGATIVE [facility] AND [id number] 14:47:00 Test Item Value Reference Range Interpretation Comments UA Ketones (test code = UA Ketones) NEGATIVE [facility] [id number] 14:47:00 Test Item Value Reference Range Interpretation Comments UA Blood (test code = UA Blood) 1+ [facility] AND [id number] 14:47:00 Test Item Value Reference Range Interpretation Comments UA Protein (test code = UA Protein) 1+ [facility] [id number] 14:47:00 Test Item Value Reference Range Interpretation Comments UA Nitrite (test code = UA Nitrite) POSITIVE [facility] AND [id number] 14:47:00 Test Item Value Reference Range Interpretation Comments UA Leuk Est (test code = UA Leuk Est) 2+ [facility] [id number] 14:47:00 Test Item Value Reference Range Interpretation Comments UA WBC (test code = UA WBC) > OR = 60 [facility] [id number] 14:47:00 Test Item Value Reference Range Interpretation Comments UA RBC (test code = UA RBC) 0-2 [facility] AND [id number] 14:47:00 Test Item Value Reference Range Interpretation Comments UA Sq Epi (test code = UA Sq Epi) NONE SEEN [facility] AND [id number] 14:47:00 Test Item Value Reference Range Interpretation Comments UA Bacteria (test code = UA Bacteria) MANY [facility] AND [id number] 14:47:00 Test Item Value Reference Range Interpretation Comments UA Hyal Cast (test code = UA Hyal NONE SEEN Cast) [facility] AND [id number] 14:47:00 Test Item Value Reference Range Interpretation Comments UA Reflex (test code CULTURE INDICATED - = UA Reflex) RESULTS TO FOLLOW [facility]2020-08-06 14:47:00 Test Item Value Reference Range Interpretation Comments U Creat mg/dL (test code = U Creat 114 20-275 mg/dL) [facility] [id number] 14:47:00 Test Item Value Reference Range Interpretation Comments U Alb (test code = U Alb) 16.7 [facility] [id number] 14:47:00 Test Item Value Reference Range Interpretation Comments U Alb/Crea (test code = U Alb/Crea) 146 [facility] [id number] 14:47:00 Test Item Value Reference Range Interpretation Comments Vitamin D, 25-OH, Total (test code = 37 30-100 Vitamin D, 25-OH, Total) [facility] [id number] 14:47:00 Test Item Value Reference Range Interpretation Comments U Creat mg/dL (test code = U Creat 114 20-275 mg/dL) [place] 475700-08-06 14:47:00 Test Item Value Reference Range Interpretation Comments U Prot/Creat (test code = U Prot/Creat) 430 21-161 [place] 475700-08-06 14:47:00 Test Item Value Reference Range Interpretation Comments U Prot/Creat (test code = U 0.430 1 0.021-0.161 Prot/Creat) [facility]2020-08-06 14:47:00 Test Item Value Reference Range Interpretation Comments U Protein (test code = U Protein) 49 5-24 [place] 475700-08-06 14:47:00 Test Item Value Reference Range Interpretation Comments Glucose Lvl (test code = Glucose Lvl) 103 65-99 [place] 475700-08-06 14:47:00 Test Item Value Reference Range Interpretation Comments BUN (test code = BUN) 24 7-25 [place] 475700-08-06 14:47:00 Test Item Value Reference Range Interpretation Comments Creatinine Lvl (test code = Creatinine 1.32 0.50-0.99 Lvl) [facility]2020-08-06 14:47:00 Test Item Value Reference Range Interpretation Comments eGFR NON-AFR. SOUTH AFRICAN (test code = 43 eGFR NON-AFR. SOUTH AFRICAN) [place] 475700-08-06 14:47:00 Test Item Value Reference Range Interpretation Comments eGFR (test code = eGFR 50 ) [place] 475700-08-06 14:47:00 Test Item Value Reference Range Interpretation Comments B/C Ratio (test code = B/C Ratio) 18 6-22 [place] 475700-08-06 14:47:00 Test Item Value Reference Range Interpretation Comments Sodium Lvl (test code = Sodium Lvl) 138 135-146 [place] 475700-08-06 14:47:00 Test Item Value Reference Range Interpretation Comments Potassium Lvl (test code = Potassium 4.4 3.5-5.3 Lvl) [place] 475700-08-06 14:47:00 Test Item Value Reference Range Interpretation Comments Chloride Lvl (test code = Chloride Lvl) 102 98-110 [facility]2020-08-06 14:47:00 Test Item Value Reference Range Interpretation Comments CO2 (test code = CO2) 30 20-32 [facility]2020-08-06 14:47:00 Test Item Value Reference Range Interpretation Comments Calcium Lvl (test code = Calcium Lvl) 9.4 8.6-10.4 [place] 475700-08-06 14:47:00 Test Item Value Reference Range Interpretation Comments Phosphorus (test code = Phosphorus) 4.8 2.5-4.5 [facility]2020-08-06 14:47:00 Test Item Value Reference Range Interpretation Comments Albumin Lvl (test code = Albumin Lvl) 3.9 3.6-5.1 [place] [address]-08-06 14:47:00 Test Item Value Reference Range Interpretation Comments Plt Count Estimated (test code = DECREASED Plt Count Estimated) [facility] CenterUhhklbmAANHRUYDXG3726-35-71 14:47:00 Test Item Value Reference Range Interpretation Comments WBC X 10x3 (test code = WBC X 10x3) 7.2 3.8-10.8 [place] [address]-08-06 14:47:00 Test Item Value Reference Range Interpretation Comments RBC X 10x6 (test code = RBC X 10x6) 3.71 3.80-5.10 [place] [address]-08-06 14:47:00 Test Item Value Reference Range Interpretation Comments Hgb (test code = Hgb) 10.7 11.7-15.5 [place] [address]-08-06 14:47:00 Test Item Value Reference Range Interpretation Comments Hct (test code = Hct) 33.9 35.0-45.0 [place] [address]-08-06 14:47:00 Test Item Value Reference Range Interpretation Comments MCV (test code = MCV) 91.4 80.0-100.0 [place] [address]-08-06 14:47:00 Test Item Value Reference Range Interpretation Comments MCH (test code = MCH) 28.8 pg 27.0-33.0 [place] [address]-08-06 14:47:00 Test Item Value Reference Range Interpretation Comments MCHC (test code = MCHC) 31.6 32.0-36.0 [place] 025090-08-06 14:47:00 Test Item Value Reference Range Interpretation Comments RDW (test code = RDW) 13.9 11.0-15.0 [place] 025090-08-06 14:47:00 Test Item Value Reference Range Interpretation Comments Platelet (test code = Platelet) 110 140-400 [facility] CenterEwpnulxPWIQEJKMWJ5108-39-51 14:47:00 Test Item Value Reference Range Interpretation Comments MPV (test code = MPV) 11.7 7.5-12.5 [facility] CenterVklevdqXZHUAXYETA4222-05-80 14:47:00 Test Item Value Reference Range Interpretation Comments Neutrophils # (test code = Neutrophils 5414 7414-7345 #) [facility] CenterDdszdnqMEENEFZMES2898-70-67 14:47:00 Test Item Value Reference Range Interpretation Comments Lymphocytes # (test code = Lymphocytes [phone] #) [facility] CenterNsgwvahCFHZZFJUYH1876-77-15 14:47:00 Test Item Value Reference Range Interpretation Comments Monocytes # (test code = Monocytes #) 461 200-950 [facility] CenterUhnkuzbGWHLRBFEVG3046-13-10 14:47:00 Test Item Value Reference Range Interpretation Comments Eosinophils # (test code = Eosinophils 122 15-500 #) [facility] CenterKvjnzrjTNZBLPMIMB9879-40-07 14:47:00 Test Item Value Reference Range Interpretation Comments Basophils # (test code 50 See_Comment [Aut omated message] The = Basophils #) system which generated this result tra nsmitted reference range : <=200. The reference r edy was not used to int erpret this result as normal/abnormal . [facility] CenterHcoqrneUTRDAVRQQJ2112-18-59 14:47:00 Test Item Value Reference Range Interpretation Comments Segs (test code = Segs) 75.2 [facility] CenterDcxrcvmCNYJPCXDLQ0109-99-81 14:47:00 Test Item Value Reference Range Interpretation Comments Lymphocytes (test code = Lymphocytes) 16.0 [place] 025090-08-06 14:47:00 Test Item Value Reference Range Interpretation Comments Monocytes (test code = Monocytes) 6.4 [place] 025090-08-06 14:47:00 Test Item Value Reference Range Interpretation Comments Eosinophils (test code = Eosinophils) 1.7 [facility] CenterGtkclcqEDJLNBPETJ6352-59-53 14:47:00 Test Item Value Reference Range Interpretation Comments Basophils (test code = Basophils) 0.7 [facility] [id number] 14:47:00 Test Item Value Reference Range Interpretation Comments Result 2 (Urine Culture) See Result Comment (test code = Result 2 (Urine Culture)) [facility]ann[facility] [id number] 14:47:00 Test Item Value Reference Range Interpretation Comments UA Color (test code = UA Color) YELLOW [facility]annDE[facility] AND [id number] 14:47:00 Test Item Value Reference Range Interpretation Comments UA Turbidity (test code = UA CLOUDY Turbidity) [facility]annDE[facility] AND [id number] 14:47:00 Test Item Value Reference Range Interpretation Comments UA Spec Grav (test code = UA Spec 1.017 1 1.001-1.035 Grav) [facility] AND [id number] 14:47:00 Test Item Value Reference Range Interpretation Comments UA pH (test code = UA pH) 5.5 1 5.0-8.0 [facility] AND [id number] 14:47:00 Test Item Value Reference Range Interpretation Comments UA Glucose (test code = UA Glucose) NEGATIVE [facility]ann[facility] AND [id number] 14:47:00 Test Item Value Reference Range Interpretation Comments UA Bili (test code = UA Bili) [facility]GATIVE [facility] [id number] 14:47:00 Test Item Value Reference Range Interpretation Comments UA Ketones (test code = UA Ketones) NEGATIVE [facility] [id number] 14:47:00 Test Item Value Reference Range Interpretation Comments UA Blood (test code = UA Blood) 1+ [facility] [id number] 14:47:00 Test Item Value Reference Range Interpretation Comments UA Protein (test code = UA Protein) 1+ [facility] [id number] 14:47:00 Test Item Value Reference Range Interpretation Comments UA Nitrite (test code = UA Nitrite) POSITIVE [facility] [id number] 14:47:00 Test Item Value Reference Range Interpretation Comments UA Leuk Est (test code = UA Leuk Est) 2+ [facility] [id number] 14:47:00 Test Item Value Reference Range Interpretation Comments UA WBC (test code = UA WBC) > OR = 60 [facility] AND [id number] 14:47:00 Test Item Value Reference Range Interpretation Comments UA RBC (test code = UA RBC) 0-2 [facility]annDE[facility] AND [id number] 14:47:00 Test Item Value Reference Range Interpretation Comments UA Sq Epi (test code = UA Sq Epi) NONE SEEN [facility]annDE[facility] AND [id number] 14:47:00 Test Item Value Reference Range Interpretation Comments UA Bacteria (test code = UA Bacteria) MANY [facility] CenterannDEBOR[facility] AND [id number] 14:47:00 Test Item Value Reference Range Interpretation Comments UA Hyal Cast (test code = UA Hyal NONE SEEN Cast) [facility] AND [id number] 14:47:00 Test Item Value Reference Range Interpretation Comments UA Reflex (test code CULTURE INDICATED - = UA Reflex) RESULTS TO FOLLOW [facility]2020-08-06 14:47:00 Test Item Value Reference Range Interpretation Comments U Creat mg/dL (test code = U Creat 114 20-275 mg/dL) [facility]2020-08-06 14:47:00 Test Item Value Reference Range Interpretation Comments U Alb (test code = U Alb) 16.7 [facility]2020-08-06 14:47:00 Test Item Value Reference Range Interpretation Comments U Alb/Crea (test code = U Alb/Crea) 146 [facility]2020-08-06 14:47:00 Test Item Value Reference Range Interpretation Comments Vitamin D, 25-OH, Total (test code = 37 30-100 Vitamin D, 25-OH, Total) [facility]2020-08-06 14:47:00 Test Item Value Reference Range Interpretation Comments U Creat mg/dL (test code = U Creat 114 20-275 mg/dL) [facility]2020-08-06 14:47:00 Test Item Value Reference Range Interpretation Comments U Prot/Creat (test code = U Prot/Creat) 430 21-161 [facility]2020-08-06 14:47:00 Test Item Value Reference Range Interpretation Comments U Prot/Creat (test code = U 0.430 1 0.021-0.161 Prot/Creat) [facility]2020-08-06 14:47:00 Test Item Value Reference Range Interpretation Comments U Protein (test code = U Protein) 49 5-24 [place] 475700-08-06 14:47:00 Test Item Value Reference Range Interpretation Comments Glucose Lvl (test code = Glucose Lvl) 103 65-99 [place] 475700-08-06 14:47:00 Test Item Value Reference Range Interpretation Comments BUN (test code = BUN) 24 7-25 [place] 475700-08-06 14:47:00 Test Item Value Reference Range Interpretation Comments Creatinine Lvl (test code = Creatinine 1.32 0.50-0.99 Lvl) [place] 475700-08-06 14:47:00 Test Item Value Reference Range Interpretation Comments eGFR NON-AFR. SOUTH AFRICAN (test code = 43 eGFR NON-AFR. SOUTH AFRICAN) [facility]2020-08-06 14:47:00 Test Item Value Reference Range Interpretation Comments eGFR (test code = eGFR 50 ) [place] 475700-08-06 14:47:00 Test Item Value Reference Range Interpretation Comments B/C Ratio (test code = B/C Ratio) 18 6-22 [place] 475700-08-06 14:47:00 Test Item Value Reference Range Interpretation Comments Sodium Lvl (test code = Sodium Lvl) 138 135-146 [facility]2020-08-06 14:47:00 Test Item Value Reference Range Interpretation Comments Potassium Lvl (test code = Potassium 4.4 3.5-5.3 Lvl) [facility]2020-08-06 14:47:00 Test Item Value Reference Range Interpretation Comments Chloride Lvl (test code = Chloride Lvl) 102 98-110 [place] 475700-08-06 14:47:00 Test Item Value Reference Range Interpretation Comments CO2 (test code = CO2) 30 20-32 [place] 475700-08-06 14:47:00 Test Item Value Reference Range Interpretation Comments Calcium Lvl (test code = Calcium Lvl) 9.4 8.6-10.4 [place] 475700-08-06 14:47:00 Test Item Value Reference Range Interpretation Comments Phosphorus (test code = Phosphorus) 4.8 2.5-4.5 [place] [address]-08-06 14:47:00 Test Item Value Reference Range Interpretation Comments Albumin Lvl (test code = Albumin Lvl) 3.9 3.6-5.1 [place] 025090-08-06 14:47:00 Test Item Value Reference Range Interpretation Comments Plt Count Estimated (test code = DECREASED Plt Count Estimated) [facility]ygbygvQPUUQUVYXB8176[facility] 14:47:00 Test Item Value Reference Range Interpretation Comments WBC X 10x3 (test code = WBC X 10x3) 7.2 3.8-10.8 [facility] CenterGzuptwjBEDQGXVQOY9705-56-38 14:47:00 Test Item Value Reference Range Interpretation Comments RBC X 10x6 (test code = RBC X 10x6) 3.71 3.80-5.10 [place] 025090-08-06 14:47:00 Test Item Value Reference Range Interpretation Comments Hgb (test code = Hgb) 10.7 11.7-15.5 [place] 025090-08-06 14:47:00 Test Item Value Reference Range Interpretation Comments Hct (test code = Hct) 33.9 35.0-45.0 [place] 025090-08-06 14:47:00 Test Item Value Reference Range Interpretation Comments MCV (test code = MCV) 91.4 80.0-100.0 [place] 025090-08-06 14:47:00 Test Item Value Reference Range Interpretation Comments MCH (test code = MCH) 28.8 pg 27.0-33.0 [facility] CenterCfpaypzCAVATNSUYA0364-59-82 14:47:00 Test Item Value Reference Range Interpretation Comments MCHC (test code = MCHC) 31.6 32.0-36.0 [place] 025090-08-06 14:47:00 Test Item Value Reference Range Interpretation Comments RDW (test code = RDW) 13.9 11.0-15.0 [place] 025090-08-06 14:47:00 Test Item Value Reference Range Interpretation Comments Platelet (test code = Platelet) 110 140-400 [facility] CenterTtpszeeAOOWWVEDPK0098-49-83 14:47:00 Test Item Value Reference Range Interpretation Comments MPV (test code = MPV) 11.7 7.5-12.5 [facility] CenterRdzdtkgUBNYPOMCUJ4238-45-46 14:47:00 Test Item Value Reference Range Interpretation Comments Neutrophils # (test code = Neutrophils 5414 5484-1410 #) [facility] IrvingNmjisiaBFMLMYFBCX5637-42-95 14:47:00 Test Item Value Reference Range Interpretation Comments Lymphocytes # (test code = Lymphocytes 9777 445-6591 #) [facility] IrvingNllehinHYGTKAVUWN5376-47-97 14:47:00 Test Item Value Reference Range Interpretation Comments Monocytes # (test code = Monocytes #) 461 200-950 [facility] IrvingXvdhzmuWLVGVFUSCZ0173-50-75 14:47:00 Test Item Value Reference Range Interpretation Comments Eosinophils # (test code = Eosinophils 122 15-500 #) [facility]JirgwgyZRWBVGSQRR1095-17-26 14:47:00 Test Item Value Reference Range Interpretation Comments Basophils # (test code 50 See_Comment [Aut omated message] The = Basophils #) system which generated this result tra nsmitted reference range : <=200. The reference r edy was not used to int erpret this result as normal/abnormal . [facility] CenterWigjccqRPSCHTTESN4316-78-52 14:47:00 Test Item Value Reference Range Interpretation Comments Segs (test code = Segs) 75.2 [facility]OWKMNCMKP1587[facility] 14:47:00 Test Item Value Reference Range Interpretation Comments Lymphocytes (test code = Lymphocytes) 16.0 [facility] CenterFqziqimWFSELSSVAI9531-50-37 14:47:00 Test Item Value Reference Range Interpretation Comments Monocytes (test code = Monocytes) 6.4 [facility] CenterHewmmcxCMYWBSMMTO3173-02-82 14:47:00 Test Item Value Reference Range Interpretation Comments Eosinophils (test code = Eosinophils) 1.7 [facility] IrvingQsqsxteQGGDLQEZJT0522-30-86 14:47:00 Test Item Value Reference Range Interpretation Comments Basophils (test code = Basophils) 0.7 [facility]annREF[facility] [id number] 14:47:00 Test Item Value Reference Range Interpretation Comments Result 2 (Urine Culture) See Result Comment (test code = Result 2 (Urine Culture)) [facility] AND [id number] 14:47:00 Test Item Value Reference Range Interpretation Comments UA Color (test code = UA Color) YELLOW [facility] [id number] 14:47:00 Test Item Value Reference Range Interpretation Comments UA Turbidity (test code = UA CLOUDY Turbidity) [facility] [id number] 14:47:00 Test Item Value Reference Range Interpretation Comments UA Spec Grav (test code = UA Spec 1.017 1 1.001-1.035 Grav) [facility] [id number] 14:47:00 Test Item Value Reference Range Interpretation Comments UA pH (test code = UA pH) 5.5 1 5.0-8.0 [facility] [id number] 14:47:00 Test Item Value Reference Range Interpretation Comments UA Glucose (test code = UA Glucose) NEGATIVE [facility] [id number] 14:47:00 Test Item Value Reference Range Interpretation Comments UA Bili (test code = UA Bili) NEGATIVE [facility] [id number] 14:47:00 Test Item Value Reference Range Interpretation Comments UA Ketones (test code = UA Ketones) NEGATIVE [facility] [id number] 14:47:00 Test Item Value Reference Range Interpretation Comments UA Blood (test code = UA Blood) 1+ [facility] [id number] 14:47:00 Test Item Value Reference Range Interpretation Comments UA Protein (test code = UA Protein) 1+ [facility] [id number] 14:47:00 Test Item Value Reference Range Interpretation Comments UA Nitrite (test code = UA Nitrite) POSITIVE [facility] [id number] 14:47:00 Test Item Value Reference Range Interpretation Comments UA Leuk Est (test code = UA Leuk Est) 2+ [facility] [id number] 14:47:00 Test Item Value Reference Range Interpretation Comments UA WBC (test code = UA WBC) > OR = 60 [facility] [id number] 14:47:00 Test Item Value Reference Range Interpretation Comments UA RBC (test code = UA RBC) 0-2 [facility] [id number] 14:47:00 Test Item Value Reference Range Interpretation Comments UA Sq Epi (test code = UA Sq Epi) NONE SEEN [facility] [id number] 14:47:00 Test Item Value Reference Range Interpretation Comments UA Bacteria (test code = UA Bacteria) MANY [facility] [id number] 14:47:00 Test Item Value Reference Range Interpretation Comments UA Hyal Cast (test code = UA Hyal NONE SEEN Cast) [facility] AND [id number] 14:47:00 Test Item Value Reference Range Interpretation Comments UA Reflex (test code CULTURE INDICATED - = UA Reflex) RESULTS TO FOLLOW [facility]2020-08-06 14:47:00 Test Item Value Reference Range Interpretation Comments U Creat mg/dL (test code = U Creat 114 20-275 mg/dL) [facility]2020-08-06 14:47:00 Test Item Value Reference Range Interpretation Comments U Alb (test code = U Alb) 16.7 [place] 823000-08-06 14:47:00 Test Item Value Reference Range Interpretation Comments U Alb/Crea (test code = U Alb/Crea) 146 [facility]2020-08-06 14:47:00 Test Item Value Reference Range Interpretation Comments Vitamin D, 25-OH, Total (test code = 37 30-100 Vitamin D, 25-OH, Total) [facility]2020-08-06 14:47:00 Test Item Value Reference Range Interpretation Comments U Creat mg/dL (test code = U Creat 114 20-275 mg/dL) [place] 475700-08-06 14:47:00 Test Item Value Reference Range Interpretation Comments U Prot/Creat (test code = U Prot/Creat) 430 21-161 [place] 475700-08-06 14:47:00 Test Item Value Reference Range Interpretation Comments U Prot/Creat (test code = U 0.430 1 0.021-0.161 Prot/Creat) [place] 475700-08-06 14:47:00 Test Item Value Reference Range Interpretation Comments U Protein (test code = U Protein) 49 5-24 [place] 475700-08-06 14:47:00 Test Item Value Reference Range Interpretation Comments Glucose Lvl (test code = Glucose Lvl) 103 65-99 [place] 475700-08-06 14:47:00 Test Item Value Reference Range Interpretation Comments BUN (test code = BUN) 24 7-25 [place] 475700-08-06 14:47:00 Test Item Value Reference Range Interpretation Comments Creatinine Lvl (test code = Creatinine 1.32 0.50-0.99 Lvl) [place] 475700-08-06 14:47:00 Test Item Value Reference Range Interpretation Comments eGFR NON-AFR. SOUTH AFRICAN (test code = 43 eGFR NON-AFR. SOUTH AFRICAN) [place] 475700-08-06 14:47:00 Test Item Value Reference Range Interpretation Comments eGFR (test code = eGFR 50 ) [place] 475700-08-06 14:47:00 Test Item Value Reference Range Interpretation Comments B/C Ratio (test code = B/C Ratio) 18 6-22 [place] 475700-08-06 14:47:00 Test Item Value Reference Range Interpretation Comments Sodium Lvl (test code = Sodium Lvl) 138 135-146 [place] 475700-08-06 14:47:00 Test Item Value Reference Range Interpretation Comments Potassium Lvl (test code = Potassium 4.4 3.5-5.3 Lvl) [place] 475700-08-06 14:47:00 Test Item Value Reference Range Interpretation Comments Chloride Lvl (test code = Chloride Lvl) 102 98-110 [place] 475700-08-06 14:47:00 Test Item Value Reference Range Interpretation Comments CO2 (test code = CO2) 30 20-32 [place] 475700-08-06 14:47:00 Test Item Value Reference Range Interpretation Comments Calcium Lvl (test code = Calcium Lvl) 9.4 8.6-10.4 [place] 475700-08-06 14:47:00 Test Item Value Reference Range Interpretation Comments Phosphorus (test code = Phosphorus) 4.8 2.5-4.5 [place] 475700-08-06 14:47:00 Test Item Value Reference Range Interpretation Comments Albumin Lvl (test code = Albumin Lvl) 3.9 3.6-5.1 [place] [address]-08-06 14:47:00 Test Item Value Reference Range Interpretation Comments Plt Count Estimated (test code = DECREASED Plt Count Estimated) [place] 025090-08-06 14:47:00 Test Item Value Reference Range Interpretation Comments WBC X 10x3 (test code = WBC X 10x3) 7.2 3.8-10.8 [place] [address]-08-06 14:47:00 Test Item Value Reference Range Interpretation Comments RBC X 10x6 (test code = RBC X 10x6) 3.71 3.80-5.10 [facility] CenterNiqdoxtKXJGUVFACJ3055-89-85 14:47:00 Test Item Value Reference Range Interpretation Comments Hgb (test code = Hgb) 10.7 11.7-15.5 [facility] CenterBbuaismJUPAIBDTNS4537-90-39 14:47:00 Test Item Value Reference Range Interpretation Comments Hct (test code = Hct) 33.9 35.0-45.0 [facility] CenterOnvygixWWLSXOMZVY1881-17-81 14:47:00 Test Item Value Reference Range Interpretation Comments MCV (test code = MCV) 91.4 80.0-100.0 [facility] CenterIdecwqfQZAXQUHFET0575-85-40 14:47:00 Test Item Value Reference Range Interpretation Comments MCH (test code = MCH) 28.8 pg 27.0-33.0 [facility] CenterEupkvepMQXPGYHMOO8822-94-39 14:47:00 Test Item Value Reference Range Interpretation Comments MCHC (test code = MCHC) 31.6 32.0-36.0 [facility] CenterYgpgncbTXMSBZDKZE6058-51-14 14:47:00 Test Item Value Reference Range Interpretation Comments RDW (test code = RDW) 13.9 11.0-15.0 [facility] CenterZmsvhszFDVHPBRIIJ7634-15-18 14:47:00 Test Item Value Reference Range Interpretation Comments Platelet (test code = Platelet) 110 140-400 [facility] CenterRxbnmocGZDRDFEOFH1616-91-49 14:47:00 Test Item Value Reference Range Interpretation Comments MPV (test code = MPV) 11.7 7.5-12.5 [facility] CenterJdncqzySZZQAHNQSG7124-82-90 14:47:00 Test Item Value Reference Range Interpretation Comments Neutrophils # (test code = Neutrophils 5414 6357-9026 #) [facility] CenterQuvlhgmMKCAGWDLXS9261-19-71 14:47:00 Test Item Value Reference Range Interpretation Comments Lymphocytes # (test code = Lymphocytes 7285 781-8226 #) [facility] CenterPilolpdTOSHGFYUTP3358-88-91 14:47:00 Test Item Value Reference Range Interpretation Comments Monocytes # (test code = Monocytes #) 461 200-950 [facility] CenterAvgjlctDKSVZCSHTD6714-85-00 14:47:00 Test Item Value Reference Range Interpretation Comments Eosinophils # (test code = Eosinophils 122 15-500 #) [facility] IrvingEgjahbnDXWXONUCTC6431-63-23 14:47:00 Test Item Value Reference Range Interpretation Comments Basophils # (test code 50 See_Comment [Aut omated message] The = Basophils #) system which generated this result tra nsmitted reference range : <=200. The reference r edy was not used to int erpret this result as normal/abnormal . [facility] IrvingLvscoayDSBRDIYHDT3617-98-55 14:47:00 Test Item Value Reference Range Interpretation Comments Segs (test code = Segs) 75.2 [facility] IrvingOdqaiumJLRDXIXTNS6479-76-59 14:47:00 Test Item Value Reference Range Interpretation Comments Lymphocytes (test code = Lymphocytes) 16.0 [facility] IrvingZixfrczUBSJUPGTXO5860-58-06 14:47:00 Test Item Value Reference Range Interpretation Comments Monocytes (test code = Monocytes) 6.4 [facility] CenterScglwgyHCCRGXLYLE0187-47-72 14:47:00 Test Item Value Reference Range Interpretation Comments Eosinophils (test code = Eosinophils) 1.7 [facility] IrvingHdbsnbfFWMQWXPUGU0679-86-42 14:47:00 Test Item Value Reference Range Interpretation Comments Basophils (test code = Basophils) 0.7 [facility]annREFER[facility] [id number] 14:47:00 Test Item Value Reference Range Interpretation Comments Result 2 (Urine Culture) See Result Comment (test code = Result 2 (Urine Culture)) [facility] AND [id number] 14:47:00 Test Item Value Reference Range Interpretation Comments UA Color (test code = UA Color) YELLOW [facility] AND [id number] 14:47:00 Test Item Value Reference Range Interpretation Comments UA Turbidity (test code = UA CLOUDY Turbidity) [facility] AND [id number] 14:47:00 Test Item Value Reference Range Interpretation Comments UA Spec Grav (test code = UA Spec 1.017 1 1.001-1.035 Grav) [facility] AND [id number] 14:47:00 Test Item Value Reference Range Interpretation Comments UA pH (test code = UA pH) 5.5 1 5.0-8.0 [facility] AND [id number] 14:47:00 Test Item Value Reference Range Interpretation Comments UA Glucose (test code = UA Glucose) NEGATIVE [facility] AND [id number] 14:47:00 Test Item Value Reference Range Interpretation Comments UA Bili (test code = UA Bili) NEGATIVE [facility] [id number] 14:47:00 Test Item Value Reference Range Interpretation Comments UA Ketones (test code = UA Ketones) NEGATIVE [facility] [id number] 14:47:00 Test Item Value Reference Range Interpretation Comments UA Blood (test code = UA Blood) 1+ [facility] [id number] 14:47:00 Test Item Value Reference Range Interpretation Comments UA Protein (test code = UA Protein) 1+ [facility] [id number] 14:47:00 Test Item Value Reference Range Interpretation Comments UA Nitrite (test code = UA Nitrite) POSITIVE [facility] [id number] 14:47:00 Test Item Value Reference Range Interpretation Comments UA Leuk Est (test code = UA Leuk Est) 2+ [facility] [id number] 14:47:00 Test Item Value Reference Range Interpretation Comments UA WBC (test code = UA WBC) > OR = 60 [facility] [id number] 14:47:00 Test Item Value Reference Range Interpretation Comments UA RBC (test code = UA RBC) 0-2 [facility] [id number] 14:47:00 Test Item Value Reference Range Interpretation Comments UA Sq Epi (test code = UA Sq Epi) NONE SEEN [facility] [id number] 14:47:00 Test Item Value Reference Range Interpretation Comments UA Bacteria (test code = UA Bacteria) MANY [facility] [id number] 14:47:00 Test Item Value Reference Range Interpretation Comments UA Hyal Cast (test code = UA Hyal NONE SEEN Cast) [facility] [id number] 14:47:00 Test Item Value Reference Range Interpretation Comments UA Reflex (test code CULTURE INDICATED - = UA Reflex) RESULTS TO FOLLOW [facility] [id number] 14:47:00 Test Item Value Reference Range Interpretation Comments U Creat mg/dL (test code = U Creat 114 20-275 mg/dL) [facility] [id number] 14:47:00 Test Item Value Reference Range Interpretation Comments U Alb (test code = U Alb) 16.7 [facility] [id number] 14:47:00 Test Item Value Reference Range Interpretation Comments U Alb/Crea (test code = U Alb/Crea) 146 [facility] [id number] 14:47:00 Test Item Value Reference Range Interpretation Comments Vitamin D, 25-OH, Total (test code = 37 30-100 Vitamin D, 25-OH, Total) [facility] [id number] 14:47:00 Test Item Value Reference Range Interpretation Comments U Creat mg/dL (test code = U Creat 114 20-275 mg/dL) [facility]2020-08-06 14:47:00 Test Item Value Reference Range Interpretation Comments U Prot/Creat (test code = U Prot/Creat) 430 21-161 [facility]2020-08-06 14:47:00 Test Item Value Reference Range Interpretation Comments U Prot/Creat (test code = U 0.430 1 0.021-0.161 Prot/Creat) [facility]2020-08-06 14:47:00 Test Item Value Reference Range Interpretation Comments U Protein (test code = U Protein) 49 5-24 [facility]2020-08-06 14:47:00 Test Item Value Reference Range Interpretation Comments Glucose Lvl (test code = Glucose Lvl) 103 65-99 [facility]2020-08-06 14:47:00 Test Item Value Reference Range Interpretation Comments BUN (test code = BUN) 24 7-25 [facility]2020-08-06 14:47:00 Test Item Value Reference Range Interpretation Comments Creatinine Lvl (test code = Creatinine 1.32 0.50-0.99 Lvl) [facility]2020-08-06 14:47:00 Test Item Value Reference Range Interpretation Comments eGFR NON-AFR. SOUTH AFRICAN (test code = 43 eGFR NON-AFR. SOUTH AFRICAN) [facility]2020-08-06 14:47:00 Test Item Value Reference Range Interpretation Comments eGFR (test code = eGFR 50 ) [facility]2020-08-06 14:47:00 Test Item Value Reference Range Interpretation Comments B/C Ratio (test code = B/C Ratio) 18 6-22 [place] [address]-08-06 14:47:00 Test Item Value Reference Range Interpretation Comments Sodium Lvl (test code = Sodium Lvl) 138 135-146 [place] 475700-08-06 14:47:00 Test Item Value Reference Range Interpretation Comments Potassium Lvl (test code = Potassium 4.4 3.5-5.3 Lvl) [place] 475700-08-06 14:47:00 Test Item Value Reference Range Interpretation Comments Chloride Lvl (test code = Chloride Lvl) 102 98-110 [place] 475700-08-06 14:47:00 Test Item Value Reference Range Interpretation Comments CO2 (test code = CO2) 30 20-32 [place] 475700-08-06 14:47:00 Test Item Value Reference Range Interpretation Comments Calcium Lvl (test code = Calcium Lvl) 9.4 8.6-10.4 [place] [address]-08-06 14:47:00 Test Item Value Reference Range Interpretation Comments Phosphorus (test code = Phosphorus) 4.8 2.5-4.5 [place] 475700-08-06 14:47:00 Test Item Value Reference Range Interpretation Comments Albumin Lvl (test code = Albumin Lvl) 3.9 3.6-5.1 [place] 025090-08-06 14:47:00 Test Item Value Reference Range Interpretation Comments Plt Count Estimated (test code = DECREASED Plt Count Estimated) [place] 025090-08-06 14:47:00 Test Item Value Reference Range Interpretation Comments WBC X 10x3 (test code = WBC X 10x3) 7.2 3.8-10.8 [place] [address]-08-06 14:47:00 Test Item Value Reference Range Interpretation Comments RBC X 10x6 (test code = RBC X 10x6) 3.71 3.80-5.10 [place] [address]-08-06 14:47:00 Test Item Value Reference Range Interpretation Comments Hgb (test code = Hgb) 10.7 11.7-15.5 [place] [address]-08-06 14:47:00 Test Item Value Reference Range Interpretation Comments Hct (test code = Hct) 33.9 35.0-45.0 [place] [address]-08-06 14:47:00 Test Item Value Reference Range Interpretation Comments MCV (test code = MCV) 91.4 80.0-100.0 [facility] CenterWwwtbmhGXXGLAOFYO0352-85-36 14:47:00 Test Item Value Reference Range Interpretation Comments MCH (test code = MCH) 28.8 pg 27.0-33.0 [place] 025090-08-06 14:47:00 Test Item Value Reference Range Interpretation Comments MCHC (test code = MCHC) 31.6 32.0-36.0 [facility] CenterNusvuyzCLMSIUJJNH8951-81-06 14:47:00 Test Item Value Reference Range Interpretation Comments RDW (test code = RDW) 13.9 11.0-15.0 [place] 025090-08-06 14:47:00 Test Item Value Reference Range Interpretation Comments Platelet (test code = Platelet) 110 140-400 [facility] CenterBzlzglhLOFMTXDQXA9466-11-35 14:47:00 Test Item Value Reference Range Interpretation Comments MPV (test code = MPV) 11.7 7.5-12.5 [facility] CenterPhgvvauFGKYVCJTQC8849-07-24 14:47:00 Test Item Value Reference Range Interpretation Comments Neutrophils # (test code = Neutrophils 5414 4845-6096 #) [facility] CenterWpjyumzIPMJBERJUZ9845-84-95 14:47:00 Test Item Value Reference Range Interpretation Comments Lymphocytes # (test code = Lymphocytes 4084 124-2665 #) [facility] CenterJlfnkgzCFOJZIUXYO8549-39-49 14:47:00 Test Item Value Reference Range Interpretation Comments Monocytes # (test code = Monocytes #) 461 200-950 [facility] CenterYzjfzdgPGDWGLLWBM8418-93-38 14:47:00 Test Item Value Reference Range Interpretation Comments Eosinophils # (test code = Eosinophils 122 15-500 #) [place] 025090-08-06 14:47:00 Test Item Value Reference Range Interpretation Comments Basophils # (test code 50 See_Comment [Aut omated message] The = Basophils #) system which generated this result tra nsmitted reference range : <=200. The reference r edy was not used to int erpret this result as normal/abnormal . [facility] CenterTfuntplFMHPBUFMLK3753-96-64 14:47:00 Test Item Value Reference Range Interpretation Comments Segs (test code = Segs) 75.2 [facility] CenterEfqxjozOOVIYJMXFQ7266-65-59 14:47:00 Test Item Value Reference Range Interpretation Comments Lymphocytes (test code = Lymphocytes) 16.0 [facility]IenlmklWKEAWASWIK8740-17-62 14:47:00 Test Item Value Reference Range Interpretation Comments Monocytes (test code = Monocytes) 6.4 [facility]IvvfuwuRQCRXTYKRS0898-19-98 14:47:00 Test Item Value Reference Range Interpretation Comments Eosinophils (test code = Eosinophils) 1.7 [facility] HospitalTjrfqqiYYQTIMUBXN7588-24-28 14:47:00 Test Item Value Reference Range Interpretation Comments Basophils (test code = Basophils) 0.7 [facility] [id number] 14:47:00 Test Item Value Reference Range Interpretation Comments Result 2 (Urine Culture) See Result Comment (test code = Result 2 (Urine Culture)) [facility] AND [id number] 14:47:00 Test Item Value Reference Range Interpretation Comments UA Color (test code = UA Color) YELLOW [facility] AND [id number] 14:47:00 Test Item Value Reference Range Interpretation Comments UA Turbidity (test code = UA CLOUDY Turbidity) [facility] AND [id number] 14:47:00 Test Item Value Reference Range Interpretation Comments UA Spec Grav (test code = UA Spec 1.017 1 1.001-1.035 Grav) [facility] AND [id number] 14:47:00 Test Item Value Reference Range Interpretation Comments UA pH (test code = UA pH) 5.5 1 5.0-8.0 [facility] AND [id number] 14:47:00 Test Item Value Reference Range Interpretation Comments UA Glucose (test code = UA Glucose) NEGATIVE [facility] AND [id number] 14:47:00 Test Item Value Reference Range Interpretation Comments UA Bili (test code = UA Bili) NEGATIVE [facility] AND [id number] 14:47:00 Test Item Value Reference Range Interpretation Comments UA Ketones (test code = UA Ketones) NEGATIVE [facility] AND [id number] 14:47:00 Test Item Value Reference Range Interpretation Comments UA Blood (test code = UA Blood) 1+ [facility] AND [id number] 14:47:00 Test Item Value Reference Range Interpretation Comments UA Protein (test code = UA Protein) 1+ [facility] [id number] 14:47:00 Test Item Value Reference Range Interpretation Comments UA Nitrite (test code = UA Nitrite) POSITIVE [facility] [id number] 14:47:00 Test Item Value Reference Range Interpretation Comments UA Leuk Est (test code = UA Leuk Est) 2+ [facility] [id number] 14:47:00 Test Item Value Reference Range Interpretation Comments UA WBC (test code = UA WBC) > OR = 60 [facility] [id number] 14:47:00 Test Item Value Reference Range Interpretation Comments UA RBC (test code = UA RBC) 0-2 [facility] [id number] 14:47:00 Test Item Value Reference Range Interpretation Comments UA Sq Epi (test code = UA Sq Epi) NONE SEEN [facility] AND [id number] 14:47:00 Test Item Value Reference Range Interpretation Comments UA Bacteria (test code = UA Bacteria) MANY [facility] AND [id number] 14:47:00 Test Item Value Reference Range Interpretation Comments UA Hyal Cast (test code = UA Hyal NONE SEEN Cast) [facility] AND [id number] 14:47:00 Test Item Value Reference Range Interpretation Comments UA Reflex (test code CULTURE INDICATED - = UA Reflex) RESULTS TO FOLLOW [facility] [id number] 14:47:00 Test Item Value Reference Range Interpretation Comments U Creat mg/dL (test code = U Creat 114 20-275 mg/dL) [facility] [id number] 14:47:00 Test Item Value Reference Range Interpretation Comments U Alb (test code = U Alb) 16.7 [facility] [id number] 14:47:00 Test Item Value Reference Range Interpretation Comments U Alb/Crea (test code = U Alb/Crea) 146 [facility]CHE[facility] [id number] 14:47:00 Test Item Value Reference Range Interpretation Comments Vitamin D, 25-OH, Total (test code = 37 30-100 Vitamin D, 25-OH, Total) [facility] CenterCHEM [id number] 14:47:00 Test Item Value Reference Range Interpretation Comments U Creat mg/dL (test code = U Creat 114 20-275 mg/dL) [place] 475700-08-06 14:47:00 Test Item Value Reference Range Interpretation Comments U Prot/Creat (test code = U Prot/Creat) 430 21-161 [place] 475700-08-06 14:47:00 Test Item Value Reference Range Interpretation Comments U Prot/Creat (test code = U 0.430 1 0.021-0.161 Prot/Creat) [facility]2020-08-06 14:47:00 Test Item Value Reference Range Interpretation Comments U Protein (test code = U Protein) 49 5-24 [place] 475700-08-06 14:47:00 Test Item Value Reference Range Interpretation Comments Glucose Lvl (test code = Glucose Lvl) 103 65-99 [place] 475700-08-06 14:47:00 Test Item Value Reference Range Interpretation Comments BUN (test code = BUN) 24 7-25 [place] 475700-08-06 14:47:00 Test Item Value Reference Range Interpretation Comments Creatinine Lvl (test code = Creatinine 1.32 0.50-0.99 Lvl) [place] 475700-08-06 14:47:00 Test Item Value Reference Range Interpretation Comments eGFR NON-AFR. SOUTH AFRICAN (test code = 43 eGFR NON-AFR. SOUTH AFRICAN) [facility]2020-08-06 14:47:00 Test Item Value Reference Range Interpretation Comments eGFR (test code = eGFR 50 ) [place] 475700-08-06 14:47:00 Test Item Value Reference Range Interpretation Comments B/C Ratio (test code = B/C Ratio) 18 6-22 [place] 475700-08-06 14:47:00 Test Item Value Reference Range Interpretation Comments Sodium Lvl (test code = Sodium Lvl) 138 135-146 [place] 475700-08-06 14:47:00 Test Item Value Reference Range Interpretation Comments Potassium Lvl (test code = Potassium 4.4 3.5-5.3 Lvl) [place] 475700-08-06 14:47:00 Test Item Value Reference Range Interpretation Comments Chloride Lvl (test code = Chloride Lvl) 102 98-110 [place] 475700-08-06 14:47:00 Test Item Value Reference Range Interpretation Comments CO2 (test code = CO2) 30 20-32 [facility]2020-08-06 14:47:00 Test Item Value Reference Range Interpretation Comments Calcium Lvl (test code = Calcium Lvl) 9.4 8.6-10.4 [place] [address]-08-06 14:47:00 Test Item Value Reference Range Interpretation Comments Phosphorus (test code = Phosphorus) 4.8 2.5-4.5 [place] 475700-08-06 14:47:00 Test Item Value Reference Range Interpretation Comments Albumin Lvl (test code = Albumin Lvl) 3.9 3.6-5.1 [place] [address]-08-06 14:47:00 Test Item Value Reference Range Interpretation Comments Plt Count Estimated (test code = DECREASED Plt Count Estimated) [place] [address]-08-06 14:47:00 Test Item Value Reference Range Interpretation Comments WBC X 10x3 (test code = WBC X 10x3) 7.2 3.8-10.8 [place] [address]-08-06 14:47:00 Test Item Value Reference Range Interpretation Comments RBC X 10x6 (test code = RBC X 10x6) 3.71 3.80-5.10 [place] [address]-08-06 14:47:00 Test Item Value Reference Range Interpretation Comments Hgb (test code = Hgb) 10.7 11.7-15.5 [place] [address]-08-06 14:47:00 Test Item Value Reference Range Interpretation Comments Hct (test code = Hct) 33.9 35.0-45.0 [place] [address]-08-06 14:47:00 Test Item Value Reference Range Interpretation Comments MCV (test code = MCV) 91.4 80.0-100.0 [place] [address]-08-06 14:47:00 Test Item Value Reference Range Interpretation Comments MCH (test code = MCH) 28.8 pg 27.0-33.0 [place] [address]-08-06 14:47:00 Test Item Value Reference Range Interpretation Comments MCHC (test code = MCHC) 31.6 32.0-36.0 [place] [address]-08-06 14:47:00 Test Item Value Reference Range Interpretation Comments RDW (test code = RDW) 13.9 11.0-15.0 [facility] HospitalWjziascLYWWRZFWEV7441-49-19 14:47:00 Test Item Value Reference Range Interpretation Comments Platelet (test code = Platelet) 110 140-400 [facility] HospitalYukoqxwVUNOMHJPIK5796-64-03 14:47:00 Test Item Value Reference Range Interpretation Comments MPV (test code = MPV) 11.7 7.5-12.5 [facility] HospitalEfxpdpnANYOKQAOVO2861-18-82 14:47:00 Test Item Value Reference Range Interpretation Comments Neutrophils # (test code = Neutrophils 5414 9297-4101 #) [facility] HospitalSatggguVSMZZBPVSH2021-94-29 14:47:00 Test Item Value Reference Range Interpretation Comments Lymphocytes # (test code = Lymphocytes 4565 537-0057 #) [facility] HospitalAhtgngvDWJNFZSMOG5013-77-80 14:47:00 Test Item Value Reference Range Interpretation Comments Monocytes # (test code = Monocytes #) 461 200-950 [facility] HospitalRmmigmbJZUDCBJQSG2903-65-19 14:47:00 Test Item Value Reference Range Interpretation Comments Eosinophils # (test code = Eosinophils 122 15-500 #) [facility] HospitalXlydlltJULBLUNLTO3959-11-44 14:47:00 Test Item Value Reference Range Interpretation Comments Basophils # (test code 50 See_Comment [Aut omated message] The = Basophils #) system which generated this result tra nsmitted reference range : <=200. The reference r edy was not used to int erpret this result as normal/abnormal . [facility] CenterFxamrcvUOOUQSGZJR8946-05-99 14:47:00 Test Item Value Reference Range Interpretation Comments Segs (test code = Segs) 75.2 [facility] HospitalKdlbrflPBNOXRVQIE3489-93-28 14:47:00 Test Item Value Reference Range Interpretation Comments Lymphocytes (test code = Lymphocytes) 16.0 [facility] HospitalHeagptlZPIDTKHLCX4805-46-05 14:47:00 Test Item Value Reference Range Interpretation Comments Monocytes (test code = Monocytes) 6.4 [facility] HospitalHzvajlgAYIECNZHBX8503-60-51 14:47:00 Test Item Value Reference Range Interpretation Comments Eosinophils (test code = Eosinophils) 1.7 [facility] HospitalSchqfeqIJFUIEPRXH9072-75-02 14:47:00 Test Item Value Reference Range Interpretation Comments Basophils (test code = Basophils) 0.7 [facility] [id number] 14:47:00 Test Item Value Reference Range Interpretation Comments Result 2 (Urine Culture) See Result Comment (test code = Result 2 (Urine Culture)) [facility] AND [id number] 14:47:00 Test Item Value Reference Range Interpretation Comments UA Color (test code = UA Color) YELLOW [facility] AND [id number] 14:47:00 Test Item Value Reference Range Interpretation Comments UA Turbidity (test code = UA CLOUDY Turbidity) [facility] AND [id number] 14:47:00 Test Item Value Reference Range Interpretation Comments UA Spec Grav (test code = UA Spec 1.017 1 1.001-1.035 Grav) [facility] AND [id number] 14:47:00 Test Item Value Reference Range Interpretation Comments UA pH (test code = UA pH) 5.5 1 5.0-8.0 [facility] AND [id number] 14:47:00 Test Item Value Reference Range Interpretation Comments UA Glucose (test code = UA Glucose) NEGATIVE [facility] AND [id number] 14:47:00 Test Item Value Reference Range Interpretation Comments UA Bili (test code = UA Bili) NEGATIVE [facility] AND [id number] 14:47:00 Test Item Value Reference Range Interpretation Comments UA Ketones (test code = UA Ketones) NEGATIVE [facility] AND [id number] 14:47:00 Test Item Value Reference Range Interpretation Comments UA Blood (test code = UA Blood) 1+ [facility] AND [id number] 14:47:00 Test Item Value Reference Range Interpretation Comments UA Protein (test code = UA Protein) 1+ [facility] [id number] 14:47:00 Test Item Value Reference Range Interpretation Comments UA Nitrite (test code = UA Nitrite) POSITIVE [facility] AND [id number] 14:47:00 Test Item Value Reference Range Interpretation Comments UA Leuk Est (test code = UA Leuk Est) 2+ [facility] [id number] 14:47:00 Test Item Value Reference Range Interpretation Comments UA WBC (test code = UA WBC) > OR = 60 [facility] [id number] 14:47:00 Test Item Value Reference Range Interpretation Comments UA RBC (test code = UA RBC) 0-2 [facility] [id number] 14:47:00 Test Item Value Reference Range Interpretation Comments UA Sq Epi (test code = UA Sq Epi) NONE [facility]EN [facility] [id number] 14:47:00 Test Item Value Reference Range Interpretation Comments UA Bacteria (test code = UA Bacteria) MANY [facility] [id number] 14:47:00 Test Item Value Reference Range Interpretation Comments UA Hyal Cast (test code = UA Hyal NONE SEEN Cast) [facility]ann[facility] AND [id number] 14:47:00 Test Item Value Reference Range Interpretation Comments UA Reflex (test code CULTURE INDICATED - = UA Reflex) RESULTS TO FOLLOW [facility] [id number] 14:47:00 Test Item Value Reference Range Interpretation Comments U Creat mg/dL (test code = U Creat 114 20-275 mg/dL) [facility] [id number] 14:47:00 Test Item Value Reference Range Interpretation Comments U Alb (test code = U Alb) 16.7 [facility] [id number] 14:47:00 Test Item Value Reference Range Interpretation Comments U Alb/Crea (test code = U Alb/Crea) 146 [facility] PROTEIN ELECTROPHORESIS-24HR [id number] 08:01:00 Test Item Value Reference Range Interpretation Comments CREATININE, 24 HOUR 1.45 g/24 h 0.50-2.15 URINE (test code = 65880321) PROTEIN/CREATININE 292 mg/g creat < OR = 114 H RATION (test code = 98210156) PROTEIN, TOTAL 24 HR UR 424 mg/24 h <150 H TEST PERFORMED (test code = 81193406) AT[facility] [place] [address] [place] [address]MSORNNIECY BOYCE MD ALBUMIN (test code = 35 % 19916828) ZGEPT-4-FPOTVYVHA (test 10 % code = 86161042) IUWEE-1-KFDYJNAYK (test 12 % code = 37325072) BETA GLOBULINS (test 25 % code = 01456421) GAMMA GLOBULINS (test 18 % code = 09279925) INTERPRETATION (test Albumin and code = 45754691) various dann bulin fractions detected on proteinelectrop ho resis. No abnormal protei n bands (Bence-Jonespro te inuria) detected.TEST PERFORMED AT:[facility] IN [address] [address]LIIFDNIECY BOYCE MD NEUTROPHIL CYTOPLASMIC [id number] 05:19:00 Test Item Value Reference Range Interpretation Comments ANCA SCREEN (test NEGATIVE NEGATIVE ANCA Scree n includes code = 71665125) evaluation for p-ANCA, c-ANCA andatypi alexandre p-ANCA. [...] ofpat ients with Crohn's disease .TEST PERFORMED AT:[facility] [id number] [facility] [place] [address]DWHLPOSCAR EISENBERG MD,PHD ,MICHI COMPREHENSIVE METABOLIC [id number] 06:25:00 Test Item Value Reference Range Interpretation [...] MORPH (test code = RBCMOR) NORMAL URINE [id number] 09:53:00 Test Item Value Reference Range Interpretation [...] = VD) 36.0 ng/mL 30.0-100.0 SERUM PROTEIN [id number] 06:20:00 Test Item Value Reference Range Interpretation Comments PROTEIN TOTAL (test 5.7 g/dL 6.1-8.1 L TEST PER FORMED AT:QUEST code = 02067959) DIAGNOSTICS -[id number] [facility] [place] [address]TNOKMNIECY BOYCE MD ALBUMIN (test code = 3.2 g/dL 3.8-4.8 L 51771945) TDBAO-8-NLGKOUPKL 0.4 g/dL 0.2-0.3 H (test code = 79838598) FPGBP-4-IIDPTEIBI 0.8 g/dL 0.5-0.9 (test code = 85041886) BETA 1 GLOBULIN (test 0.5 g/dL 0.4-0.6 code = 15247026) BETA 2 GLOBULIN (test 0.2 g/dL 0.2-0.5 code = 21090911) GAMMA GLOBULINS (test 0.6 g/dL 0.8-1.7 L code = 44329305) INTERPRETATION (test Pattern consistent with code = 70181854) an acute ph ase reactionConsist ent with hypogammaglobul inemia. Serum free ligh tchains or urine immuno fixation should be consi dered ifplasma cell d yscrasias are a possible clinicaldiagnos is.TEST PERFORMED AT:[facility] [id number] [facility] [place] [address]WHGFQLINO BOYCE MD [id number] 06:13:00 Test Item Value Reference Range Interpretation Comments MAGNESIUM (test code = 48A) 1.7 mg/dL 1.8-2.4 L COMPREHENSIVE METABOLIC [id number] 06:13:00 Test Item Value Reference Range Interpretation [...] (test code = RBCMOR) NORMAL COMPREHENSIVE METABOLIC [id number] 05:30:00 Test Item Value Reference Range Interpretation [...] (test code = RBCMOR) NORMAL URINALYSIS WITH [id number] 06:44:00 Test Item Value Reference Range Interpretation [...] code = USPERM) /HPF NONE COMPREHENSIVE METABOLIC [id number] 05:24:00 Test Item Value Reference Range Interpretation [...] = RBCMOR) NORMAL U/S KIDNEY (RENAL)2019-06-06 23:20:42LOCATION: [id number]: 63-year-old female who presents with acute nontraumatic [...] jet was observed onthe color flow study.TROPONIN [id number] 07:14:00 Test Item Value Reference Range Interpretation Comments TROPONIN I (test code = A84) <0.015 ng/mL 0.000-0.045 COMPREHENSIVE METABOLIC [id number] 05:28:00 Test Item Value Reference Range Interpretation [...] (test code = RBCMOR) NORMAL COMPREHENSIVE METABOLIC [id number] 04:58:00 Test Item Value Reference Range Interpretation [...] (test code = MDIFF) NO NO CARDIAC [id number] 23:10:00 Test Item Value Reference Range Interpretation Comments TROPONIN I (test code = A84) <0.015 ng/mL 0.000-0.045 U/S VENOUS DOPPLER BALDO LOW [id number] 22:23:14LOCATION: [id number]: 63-year-old female who presents with bilateral leg [...] thrombosis in either of thispatient's legs. CARDIAC [id number] 16:50:00 Test Item Value Reference Range Interpretation Comments TROPONIN I (test code = A84) <0.015 ng/mL 0.000-0.045 BRAIN NATRIURETIC [id number] 14:39:00 Test Item Value Reference Range Interpretation Comments proBNP (test code = PBNP) 1337 pg/mL 0-125 H THYROID PANEL/SCREEN (TSH)2019-06-04 12:05:00 Test Item Value Reference Range Interpretation Comments TSH (test code = A57) 0.989 uIU/mL 0.358-3.740 [id number] 12:02:00 Test Item Value Reference Range Interpretation Comments CPK (test code = 32A) 98 IU/L 26-192 AMYLASE AND [id number] 12:02:00 Test Item Value Reference Range Interpretation Comments AMYLASE (test code = 10A) 19 U/L 28-100 L LIPASE (test code = 60A) 67 IU/L 73-393 L COMPREHENSIVE METABOLIC [id number] 12:02:00 Test Item Value Reference Range Interpretation [...] code = 31A) 41 IU/L <=78 TROPONIN [id number] 11:57:00 Test Item Value Reference Range Interpretation Comments TROPONIN I (test code = A84) <0.015 ng/mL 0.000-0.045 XR CHEST 1 VIEW [id number] 11:55:22EXAM: XR CHEST 1 VIEW PORTABLE.LOCATION: D4.HISTORY: [id number]: Chest pain.COMPARISON: Radiograph dated 05/12/2019.TECHNIQUE: Single AP view of the chest was obtained. FINDINGS:The heart is enlarged in size. Small left pleural effusion and left basilaropacities are present. There is elevation of the right hemidiaphragm. No acuteosseous abnormality is identified.IMPRESSION:Small left pleural effusion with left basilar opacities, which may representatelectasis or infiltrates.Cardiomegaly. PRO TIME AND [id number] 11:43:00 Test Item Value Reference Range Interpretation [...] (test code = RBCMOR) NORMAL CBC WITH [id number] 15:29:00 Test Item Value Reference Range Interpretation [...] NORMAL (1.5-3 um) NORMAL PLTMOR) BASIC METABOLIC [id number] 15:26:00 Test Item Value Reference Range Interpretation [...] code = 09D) 9.2 mg/dL 8.3-9.5 CARDIAC [id number] 06:04:00 Test Item Value Reference Range Interpretation Comments TROPONIN I (test code = A84) <0.015 ng/mL 0.000-0.045 BASIC METABOLIC [id number] 05:52:00 Test Item Value Reference Range Interpretation [...] MORPH (test code = RBCMOR) NORMAL CARDIAC [id number] 23:08:00 Test Item Value Reference Range Interpretation Comments TROPONIN I (test code = A84) <0.015 ng/mL 0.000-0.045 CT DISSECTION [id number] 19:26:35Exam: CT thorax PE protocol.Location: H 12History: [id number]: Chest painTechnique: Enhanced spiral slices were taken [...] code = A57) 0.706 uIU/mL 0.358-3.740 LIVER [id number] 18:28:00 Test Item Value Reference Range Interpretation [...] = 31A) 21 IU/L <=78 BRAIN NATRIURETIC [id number] 18:19:00 Test Item Value Reference Range Interpretation Comments proBNP (test code = PBNP) 518 pg/mL 0-125 H [id number] 18:15:00 Test Item Value Reference Range Interpretation Comments MAGNESIUM (test code = 48A) 1.9 mg/dL 1.8-2.4 D-[id number] 17:40:00 Test Item Value Reference Range Interpretation Comments D-DIMER (test code = <200 ng/mL D-DU 0-234 DDI) D-DIMER COMMENT (test *Level to rule out code = DDCOM) DVT or PE: <235 ng/mL D-DU* CARDIAC [id number] 17:31:00 Test Item Value Reference Range Interpretation Comments TROPONIN I (test code = A84) <0.015 ng/mL 0.000-0.045 BASIC METABOLIC [id number] 17:27:00 Test Item Value Reference Range Interpretation [...] LMW Heparin. Order Code is ANTI-XA PROTHROMBIN [id number] 17:26:00 Test Item Value Reference Range Interpretation Comments PT (test code = 12.0 s 9.8-13.6 TT) INR (test code = 1.1 INR) INRH (test code = SUGGESTED THERAPEUTIC INRH) RANGE FOR INR: 2.5 - 3.5 For Patients with Prosthetic Valves or Patients with recurrent Thromboembolic Events 2.0 - 3.0 For Most Other Applications XR CHEST 1 VIEW [id number] 17:04:28Portable AP chest, 1 viewLocation Code: [id number] HISTORY: Chest painCOMPARISON: NoneCOMMENT: Mild atelectasis is present within the lung bases. The costophrenic angles aresharp. The cardiomediastinalsilhouette is unremarkable. The bones are intact.IMPRESSION: Mild bibasilar atelectasis. Otherwise, no acute abnormalityCHEM [id number] 16:51:00 Test Item Value Reference Range Interpretation Comments Potassium Lvl (test code = Potassium 4.3 3.5-5.1 Lvl) [facility]2017-01-24 16:51:00 Test Item Value Reference Range Interpretation Comments Sodium Lvl (test code = Sodium Lvl) 144 135-145 [facility]2017-01-24 16:51:00 Test Item Value Reference Range Interpretation Comments CO2 (test code = CO2) 28 24-32 [facility] [id number] 16:51:00 Test Item Value Reference Range Interpretation Comments Calcium Lvl (test code = Calcium Lvl) 8.4 8.5-10.5 [facility]2017-01-24 16:51:00 Test Item Value Reference Range Interpretation Comments AGAP (test code = AGAP) 11.3 10.0-20.0 [facility]2017-01-24 16:51:00 Test Item Value Reference Range Interpretation Comments Glucose Lvl (test code = Glucose Lvl) 109 70-99 [facility]2017-01-24 16:51:00 Test Item Value Reference Range Interpretation Comments eGFR (test code = eGFR) 52 [facility]2017-01-24 16:51:00 Test Item Value Reference Range Interpretation Comments Creatinine Lvl (test code = Creatinine 1.15 0.50-1.40 Lvl) [facility]2017-01-24 16:51:00 Test Item Value Reference Range Interpretation Comments BUN (test code = BUN) 16 - [facility]2017-01-24 16:51:00 Test Item Value Reference Range Interpretation Comments Chloride Lvl (test code = Chloride Lvl) 109 95-109 [facility]2017-01-24 16:51:00 Test Item Value Reference Range Interpretation Comments Potassium Lvl (test code = Potassium 4.3 3.5-5.1 Lvl) [facility]2017-01-24 16:51:00 Test Item Value Reference Range Interpretation Comments Sodium Lvl (test code = Sodium Lvl) 144 135-145 [facility]2017-01-24 16:51:00 Test Item Value Reference Range Interpretation Comments CO2 (test code = CO2) 28 24-32 [facility]2017-01-24 16:51:00 Test Item Value Reference Range Interpretation Comments Calcium Lvl (test code = Calcium Lvl) 8.4 8.5-10.5 [facility]2017-01-24 16:51:00 Test Item Value Reference Range Interpretation Comments AGAP (test code = AGAP) 11.3 10.0-20.0 [facility]2017-01-24 16:51:00 Test Item Value Reference Range Interpretation Comments Glucose Lvl (test code = Glucose Lvl) 109 70-99 [facility]2017-01-24 16:51:00 Test Item Value Reference Range Interpretation Comments eGFR (test code = eGFR) 52 [facility]2017-01-24 16:51:00 Test Item Value Reference Range Interpretation Comments Creatinine Lvl (test code = Creatinine 1.15 0.50-1.40 Lvl) [facility]2017-01-24 16:51:00 Test Item Value Reference Range Interpretation Comments BUN (test code = BUN) 16 05-12 [facility]2017-01-24 16:51:00 Test Item Value Reference Range Interpretation Comments Chloride Lvl (test code = Chloride Lvl) 109 95-109 [facility]2017-01-24 16:51:00 Test Item Value Reference Range Interpretation Comments Potassium Lvl (test code = Potassium 4.3 3.5-5.1 Lvl) [facility]2017-01-24 16:51:00 Test Item Value Reference Range Interpretation Comments Sodium Lvl (test code = Sodium Lvl) 144 135-145 [facility]2017-01-24 16:51:00 Test Item Value Reference Range Interpretation Comments CO2 (test code = CO2) 28 24-32 [facility]2017-01-24 16:51:00 Test Item Value Reference Range Interpretation Comments Calcium Lvl (test code = Calcium Lvl) 8.4 8.5-10.5 [facility]2017-01-24 16:51:00 Test Item Value Reference Range Interpretation Comments AGAP (test code = AGAP) 11.3 10.0-20.0 [facility]2017-01-24 16:51:00 Test Item Value Reference Range Interpretation Comments Glucose Lvl (test code = Glucose Lvl) 109 70-99 [facility]2017-01-24 16:51:00 Test Item Value Reference Range Interpretation Comments eGFR (test code = eGFR) 52 [facility]2017-01-24 16:51:00 Test Item Value Reference Range Interpretation Comments Creatinine Lvl (test code = Creatinine 1.15 0.50-1.40 Lvl) [facility]2017-01-24 16:51:00 Test Item Value Reference Range Interpretation Comments BUN (test code = BUN) 16 - [facility]2017-01-24 16:51:00 Test Item Value Reference Range Interpretation Comments Chloride Lvl (test code = Chloride Lvl) 109 95-109 [facility]2017-01-24 16:51:00 Test Item Value Reference Range Interpretation Comments Potassium Lvl (test code = Potassium 4.3 3.5-5.1 Lvl) [facility]2017-01-24 16:51:00 Test Item Value Reference Range Interpretation Comments Sodium Lvl (test code = Sodium Lvl) 144 135-145 [facility]2017-01-24 16:51:00 Test Item Value Reference Range Interpretation Comments CO2 (test code = CO2) 28 -32 [facility]2017-01-24 16:51:00 Test Item Value Reference Range Interpretation Comments Calcium Lvl (test code = Calcium Lvl) 8.4 8.5-10.5 [facility]2017-01-24 16:51:00 Test Item Value Reference Range Interpretation Comments AGAP (test code = AGAP) 11.3 10.0-20.0 [facility]2017-01-24 16:51:00 Test Item Value Reference Range Interpretation Comments Glucose Lvl (test code = Glucose Lvl) 109 70-99 [facility]2017-01-24 16:51:00 Test Item Value Reference Range Interpretation Comments eGFR (test code = eGFR) 52 [facility]2017-01-24 16:51:00 Test Item Value Reference Range Interpretation Comments Creatinine Lvl (test code = Creatinine 1.15 0.50-1.40 Lvl) [facility]2017-01-24 16:51:00 Test Item Value Reference Range Interpretation Comments BUN (test code = BUN) 16 - [facility]2017-01-24 16:51:00 Test Item Value Reference Range Interpretation Comments Chloride Lvl (test code = Chloride Lvl) 109 95-109 [facility]2017-01-24 16:51:00 Test Item Value Reference Range Interpretation Comments Potassium Lvl (test code = Potassium 4.3 3.5-5.1 Lvl) [facility]2017-01-24 16:51:00 Test Item Value Reference Range Interpretation Comments Sodium Lvl (test code = Sodium Lvl) 144 135-145 [facility]2017-01-24 16:51:00 Test Item Value Reference Range Interpretation Comments CO2 (test code = CO2) 28 - [facility]2017-01-24 16:51:00 Test Item Value Reference Range Interpretation Comments Calcium Lvl (test code = Calcium Lvl) 8.4 8.5-10.5 [facility]2017-01-24 16:51:00 Test Item Value Reference Range Interpretation Comments AGAP (test code = AGAP) 11.3 10.0-20.0 [facility]2017-01-24 16:51:00 Test Item Value Reference Range Interpretation Comments Glucose Lvl (test code = Glucose Lvl) 109 70-99 [facility]2017-01-24 16:51:00 Test Item Value Reference Range Interpretation Comments eGFR (test code = eGFR) 52 [facility]2017-01-24 16:51:00 Test Item Value Reference Range Interpretation Comments Creatinine Lvl (test code = Creatinine 1.15 0.50-1.40 Lvl) [facility]2017-01-24 16:51:00 Test Item Value Reference Range Interpretation Comments BUN (test code = BUN) 16 - [facility]2017-01-24 16:51:00 Test Item Value Reference Range Interpretation Comments Chloride Lvl (test code = Chloride Lvl) 109 95-109 [facility]2017-01-24 16:51:00 Test Item Value Reference Range Interpretation Comments Potassium Lvl (test code = Potassium 4.3 3.5-5.1 Lvl) [facility]2017-01-24 16:51:00 Test Item Value Reference Range Interpretation Comments Sodium Lvl (test code = Sodium Lvl) 144 135-145 [facility]2017-01-24 16:51:00 Test Item Value Reference Range Interpretation Comments CO2 (test code = CO2) 28 - [facility]2017-01-24 16:51:00 Test Item Value Reference Range Interpretation Comments Calcium Lvl (test code = Calcium Lvl) 8.4 8.5-10.5 [facility]2017-01-24 16:51:00 Test Item Value Reference Range Interpretation Comments AGAP (test code = AGAP) 11.3 10.0-20.0 [facility]2017-01-24 16:51:00 Test Item Value Reference Range Interpretation Comments Glucose Lvl (test code = Glucose Lvl) 109 70-99 [facility]2017-01-24 16:51:00 Test Item Value Reference Range Interpretation Comments eGFR (test code = eGFR) 52 [facility]2017-01-24 16:51:00 Test Item Value Reference Range Interpretation Comments Creatinine Lvl (test code = Creatinine 1.15 0.50-1.40 Lvl) [facility]2017-01-24 16:51:00 Test Item Value Reference Range Interpretation Comments BUN (test code = BUN) 16 - [facility]2017-01-24 16:51:00 Test Item Value Reference Range Interpretation Comments Chloride Lvl (test code = Chloride Lvl) 109 95-109 [facility]2017-01-24 16:51:00 Test Item Value Reference Range Interpretation Comments Potassium Lvl (test code = Potassium 4.3 3.5-5.1 Lvl) [facility]2017-01-24 16:51:00 Test Item Value Reference Range Interpretation Comments Sodium Lvl (test code = Sodium Lvl) 144 135-145 [facility]2017-01-24 16:51:00 Test Item Value Reference Range Interpretation Comments CO2 (test code = CO2) 28 -32 [facility]2017-01-24 16:51:00 Test Item Value Reference Range Interpretation Comments Calcium Lvl (test code = Calcium Lvl) 8.4 8.5-10.5 [facility]2017-01-24 16:51:00 Test Item Value Reference Range Interpretation Comments AGAP (test code = AGAP) 11.3 10.0-20.0 [facility]2017-01-24 16:51:00 Test Item Value Reference Range Interpretation Comments Glucose Lvl (test code = Glucose Lvl) 109 70-99 [facility]2017-01-24 16:51:00 Test Item Value Reference Range Interpretation Comments eGFR (test code = eGFR) 52 [facility]2017-01-24 16:51:00 Test Item Value Reference Range Interpretation Comments Creatinine Lvl (test code = Creatinine 1.15 0.50-1.40 Lvl) [facility]2017-01-24 16:51:00 Test Item Value Reference Range Interpretation Comments BUN (test code = BUN) 16 05-12 [facility]2017-01-24 16:51:00 Test Item Value Reference Range Interpretation Comments Chloride Lvl (test code = Chloride Lvl) 109 95-109 [facility]2017-01-24 16:51:00 Test Item Value Reference Range Interpretation Comments Potassium Lvl (test code = Potassium 4.3 3.5-5.1 Lvl) [facility]2017-01-24 16:51:00 Test Item Value Reference Range Interpretation Comments Sodium Lvl (test code = Sodium Lvl) 144 135-145 [facility]2017-01-24 16:51:00 Test Item Value Reference Range Interpretation Comments CO2 (test code = CO2) 28 [facility]2017-01-24 16:51:00 Test Item Value Reference Range Interpretation Comments Calcium Lvl (test code = Calcium Lvl) 8.4 8.5-10.5 [facility]2017-01-24 16:51:00 Test Item Value Reference Range Interpretation Comments AGAP (test code = AGAP) 11.3 10.0-20.0 [facility]2017-01-24 16:51:00 Test Item Value Reference Range Interpretation Comments Glucose Lvl (test code = Glucose Lvl) 109 70-99 [facility]2017-01-24 16:51:00 Test Item Value Reference Range Interpretation Comments eGFR (test code = eGFR) 52 [facility]2017-01-24 16:51:00 Test Item Value Reference Range Interpretation Comments Creatinine Lvl (test code = Creatinine 1.15 0.50-1.40 Lvl) [facility]2017-01-24 16:51:00 Test Item Value Reference Range Interpretation Comments BUN (test code = BUN) 16 05-12 [facility]2017-01-24 16:51:00 Test Item Value Reference Range Interpretation Comments Chloride Lvl (test code = Chloride Lvl) 109 95-109 [facility]
--- NOTE | 2022-10-31 13:28 | RAD REPORT ---
EXAM DESCRIPTION: RAD - Chest Single View - 10/31/2022 1:22 pm CLINICAL HISTORY: DYSPNEA COMPARISON: Portable October 25 TECHNIQUE: AP portable chest image was obtained 10/31/2022 1:22 pm . FINDINGS: Lung volumes remain low. Significant elevation the right hemidiaphragm again noted. Double -lumen dialysis catheter and loop recorder remain in place. No new or progressive lung parenchymal process seen. Retrocardiac left base and posterior gutter righ t base assessment is limited on portable imaging. Heart size is prominent but stable. No acute vascular engorgement. No measurable pleural effusion and no pneumothorax. No acute bony abnormality seen. No acute aortic findings suspected. IMPRESSION: No acute cardiopulmonary process. No significant change from comparison study.
[2022-10-31 13:30] LABS: Arterial Blood Carboxyhemoglob 1.2 % (0-1.5); Blood Gas Oxyhemoglobin 36.5 % (94-97); Blood O2 Saturation 37.5 % (92-98.5)
[2022-10-31 13:59] LABS: Absolute Lymphocytes (CBC) 0.9 K/uL (0.7-4.9); Hematocrit 28.5 % (36.0-45.0); Lymphocytes % 8.8 % (15.3-44.8); MCV 98.5 fL (80-100); MPV 7.7 fL (7.6-11.3); RBC Red Blood Cell Count 2.89 M/uL (3.86-4.86)
--- NOTE | 2022-10-31 14:13 | EDPHYS ---
Physician Documentation [facility] Name: Kassie De Jesus Age: 67 yrs Sex: Female : 1955 Arrival Date: 10/31/2022 Time: 12:03 Bed 25 Private MD: Ranjit Eagle ED Physician Paul Lantigua HPI: 10/31 13:22 This 67 yrs old Female presents to ER via Wheelchair with complaints of Breathing sp3 Difficulty. 13:25 67-year-old female patient of Dr. Eagle with a history of hypertension, hyperlipidemia, sp3 stage IV kidney disease on dialysis is sent to the ED by her warehouse puller for hypotension, dyspnea, and high CO2 value at dialysis. Patient states that she has had these symptoms many times before and looking at her recent history she has had multiple admissions in the last 6 months for the same symptoms. She has a history of congestive heart failure which despite being on dialysis she is unable to tolerate it for diuresis. She denies any pain including headache, chest pain, back pain, syncope, near-syncope, abdominal pain, nausea, vomiting, diarrhea, rash, or any other somatic complaints on ROS at this time.. Historical: - Allergies: 12:10 Bactrim; ll1 12:10 cefepime; ll1 12:10 Codeine; ll1 12:10 Levofloxacin; ll1 12:10 Morphine; itching; ll1 12:10 PENICILLINS; ll1 12:10 QUINOLONES; ll1 - Home Meds: 14:52 Alphagan P ophthalmic (eye) 1 drop twice a day [Active]; amiodarone 200 mg Oral tab 1 iw tab 2 times per day [Active]; apixaban 2.5 mg Oral tab 1 tab 2 times per day [Active]; bumetanide 2 mg Oral tab 1 tab once daily [Active]; digoxin 125 mcg (0.125 mg) Oral tab 1 tab 3 X weekly [Active]; metoprolol tartrate 25 mg Oral tab 0.5 tab 2 times per day [Active]; midodrine 5 mg Oral tab PRN with dialysis [Active]; midodrine 10 mg Oral tab 1 tab Q8H, don't take before dialysis, bring pills to traetment. [Active]; pantoprazole 40 mg Oral TbEC 1 tab once daily [Active]; - PMHx: 12:10 Hypertensive disorder; High Cholesterol; stage 4 kidney failure; Dialysis; Congestive ll1 heart failure; Atrial fibrillation; - PSHx: 12:10 back surgery; Dialysis catheter LEFT upper chest; ll1 - Immunization history:: Client reports receiving the 2nd dose of the Covid vaccine. - Social history:: Smoking status: Patient denies any tobacco usage or history of. ROS: 13:26 Constitutional: Negative for fever, chills, and weight loss, Eyes: Negative for injury, sp3 pain, redness, and discharge, Neck: Negative for injury, pain, and swelling, Cardiovascular: Negative for chest pain, palpitations, and edema, Abdomen/GI: Negative for abdominal pain, nausea, vomiting, diarrhea, and constipation, MS/Extremity: Negative for injury and deformity, Skin: Negative for injury, rash, and discoloration, Neuro: Negative for headache, weakness, numbness, tingling, and seizure. 13:26 All other systems are negative. Exam: 13:26 Constitutional: This is a well developed, well nourished patient who is awake, alert, sp3 and in no acute distress. Head/Face: Normocephalic, atraumatic. Eyes: Pupils equal round and reactive to light, extra-ocular motions intact. Lids and lashes normal. Conjunctiva and sclera are non-icteric and not injected. Cornea within normal limits. Periorbital areas with no swelling, redness, or edema. ENT: Nares patent. No nasal discharge, no septal abnormalities noted. External auditory canals are clear. Oropharynx with no redness, swelling, or masses, exudates, or evidence of obstruction, uvula midline. Mucous membranes moist. Chest/axilla: Normal chest wall appearance and motion. Nontender with no deformity. No lesions are appreciated. Abdomen/GI: Soft, non-tender, with normal bowel sounds. No distension or tympany. No guarding or rebound. No evidence of tenderness throughout. Skin: Warm, dry with normal turgor. Normal color with no rashes, no lesions, and no evidence of cellulitis. Neuro: Awake and alert, GCS 15, oriented to person, place, time, and situation. Cranial nerves II-XII grossly intact. Motor strength 5/5 in all extremities. Sensory grossly intact. Cerebellar exam normal. Normal gait. 13:26 Respiratory: Rales noted bilaterally.. 13:26 Musculoskeletal/extremity: Peripheral edema noted in the lower extremities.. 13:27 Neuro: Patient is tired appearing but otherwise normal neurological exam with clear sp3 understanding of questions and answering appropriately. No focal neurodeficit noted.. 16:02 ECG was reviewed by the Attending Physician. EKG demonstrates atrial fibrillation 70 sp3 bpm with normal axis incomplete right bundle branch block, and nonspecific diffuse ST/T changes without evidence of acute ischemia. Vital Signs: 12:11 BP 88 / 41; Pulse 66; Resp 20; Temp 97.3; Pulse Ox 100% on 4 lpm NC; Weight 108.86 kg; ll1 Height 5 ft. 7 in. (170.18 cm); Pain 9/10; 12:18 BP 106 / 46; ll1 14:52 BP 95 / 59; Pulse 74; Resp 20; Pulse Ox 100% on BiPAP; iw 17:26 BP 102 / 52; Pulse 77; Resp 26; Pulse Ox 97% on 4 lpm NC; iw 18:30 BP 103 / 62; Pulse 77; Resp 22; Pulse Ox 97% on 3 lpm NC; iw 19:30 BP 94 / 60; Pulse 76; Resp 22; Temp 98.3(O); Pulse Ox 100% on 3 lpm NC; Pain 7/10; pf1 12:11 Body Mass Index 37.59 (108.86 kg, 170.18 cm) ll1 MDM: 13:14 Patient medically screened. sp3 13:28 Data reviewed: vital signs, nurses notes, diagnostic data from outside facility, sp3 radiologic studies, . ED course: Will assess, and get patient admitted to PCP with cardiology and nephrology consults as requested by patient's warehouse puller. Diagnosis includes continued volume overload, congestive heart failure, ACS, pneumonia, infection hypercarbia, among others. Patient meets full admission criteria and we will disposition accordingly.. 13:55 ED course: Patient's VBG demonstrates hypercarbia at 65. BiPAP 12/5 is started. sp3 Laboratory values and chest x-ray and then admit patient.. 16:03 Data reviewed: lab test result(s). sp3 10/31 13:06 Order name: Basic Metabolic Panel; Complete Time: 16:01 sp3 10/31 13:06 Order name: CBC with Diff sp3 10/31 13:06 Order name: LFT's; Complete Time: 16:01 sp3 10/31 13:06 Order name: Magnesium; Complete Time: 16:01 sp3 10/31 13:06 Order name: NT PRO-BNP; Complete Time: 16:01 sp3 10/31 13:06 Order name: PT-INR; Complete Time: 16:01 3 10/31 13:06 Order name: Troponin HS; Complete Time: 16: 3 10/31 13:06 Order name: ABG: VBG!!!; Complete Time: 16: sp3 10/31 14:57 Order name: SARS RAPID iw 10/31 16:23 Order name: Manual Differential EDMS 10/31 17:36 Order name: ABG: VBG sp3 10/31 17:54 Order name: ABG Arterial Blood Gas EDMS 11/01 02:52 Order name: CBC with Automated Diff EDMS 11/01 03:34 Order name: Basic Metabolic Panel EDMS 10/31 13:06 Order name: XRAY Chest (1 view); Complete Time: 14:05 3 10/31 13:06 Order name: EKG; Complete Time: 13:07 3 10/31 13:06 Order name: Cardiac monitoring; Complete Time: 14:53 3 10/31 13:06 Order name: EKG - Nurse/Tech; Complete Time: 14:53 3 10/31 13:06 Order name: IV Saline Lock; Complete Time: 13:51 3 10/31 13:06 Order name: Labs collected and sent; Complete Time: 13:51 3 10/31 13:06 Order name: O2 Per Protocol; Complete Time: 13:52 3 10/31 13:06 Order name: O2 Sat Monitoring; Complete Time: 13:52 3 10/31 14:04 Order name: Labs - recollect needed: recollect blue and green tube, fill blue to the bd line; Complete Time: 14:51 11/01 08:38 Order name: Diet Renal; Complete Time: 08:39 ph Administered Medications: No medications were administered Disposition Summary: 10/31/22 14:12 Hospitalization Ordered Hospitalization Status: Inpatient Admission sp3 Provider: Ranjit Eagle sp3 Condition: Fair sp3 Problem: an acute exacerbation sp3 Symptoms: have worsened sp3 Bed/Room Type: Standard sp3 Location: [facility] ER HOLD(11/01/22 08:27) bd Room Assignment: ERHOLD-(11/01/22 08:27) bd Diagnosis - Respiratory insufficiency, hypercarbia sp3 Forms: - Medication Reconciliation Form sp3 - SBAR form sp3 Signatures: Dispatcher [employer] EDMS LukeNarda bd Toyin Stout RN RN Dhruv Marcano RN RN ja1 Morris Pitts RN RN renate1 Paul Lantigua MD MD sp3 Corrections: (The following items were deleted from the chart) 14:53 14:52 Home Meds: midodrine Oral; [facility] 17:52 14:12 Telemetry/MedSurg (Inpatient) sp3 ja 17:52 14:12 sp3 [facility] 11/01 07:53 10/31 17:52 [facility] ER HOLD [facility] bd 11/01 07:53 10/31 17:52 ERHOLD- [facility] bd 11/01 08:27 07:53 Telemetry/MedSurg (Inpatient) bd 08: 07:53 413 bd
--- NOTE | 2022-10-31 14:13 | ER ---
Nurse's Notes [facility] Name: Kassie De Jesus Age: 67 yrs Sex: Female : 1955 Arrival Date: 10/31/2022 Time: 12:03 Bed 25 Private MD: Ranjit Eagle Diagnosis: Respiratory insufficiency, hypercarbia Presentation: 10/31 12:11 Chief complaint: Patient states: SOB, cough, weakness since she was last admitted. + ll1 confusion and fatigue. No fever this week. Vaginal rash and infection is bad right now. Wears oxygen at home, cant keep sats above 80%. Coronavirus screen: Vaccine status: Patient reports being unvaccinated. Client denies travel out of the [place] in the last 14 days. congestion, cough unrelated to allergies, difficulty breathing, fatigue, Client presents with at least one sign or symptom that may indicate coronavirus-19. Standard/surgical mask placed on the client. Ebola Screen: Patient denies travel to an Ebola-affected area in the 21 days before illness onset. Initial Sepsis Screen: Does the patient meet any 2 criteria? No. Patient's initial sepsis screen is negative. Does the patient have a suspected source of infection? No. Patient's initial sepsis screen is negative. Risk Assessment: Do you want to hurt yourself or someone else? Patient reports no desire to harm self or others. Onset of symptoms was October 27, 2022. 12:11 Method Of Arrival: Wheelchair ll1 12:11 Acuity: LENI 2 ll1 Triage Assessment: 12:12 General: Appears uncomfortable, ill, Behavior is cooperative, appropriate for age. ll1 Pain: Denies pain. Respiratory: Reports shortness of breath cough that is the patient has moderate shortness of breath. 19:20 EENT: No deficits noted. No signs and/or symptoms were reported regarding the EENT pf1 system. Respiratory: Onset: The symptoms/episode began/occurred today. GI: Abdomen is round non-distended, Bowel sounds present X 4 quads. Reports diarrhea. : No deficits noted. Derm: No signs and/or symptoms reported regarding the dermatologic system. Musculoskeletal: No deficits noted. 19:20 Neuro: No deficits noted. Level of Consciousness is awake, alert, obeys commands, pf1 Oriented to person, place, time. Cardiovascular: No deficits noted. Capillary refill < 3 seconds Patient's skin is warm and dry. Historical: - Allergies: 12:10 Bactrim; ll1 12:10 cefepime; ll1 12:10 Codeine; ll1 12:10 Levofloxacin; ll1 12:10 Morphine; itching; ll1 12:10 PENICILLINS; ll1 12:10 QUINOLONES; ll1 - Home Meds: 14:52 Alphagan P ophthalmic (eye) 1 drop twice a day [Active]; amiodarone 200 mg Oral tab 1 iw tab 2 times per day [Active]; apixaban 2.5 mg Oral tab 1 tab 2 times per day [Active]; bumetanide 2 mg Oral tab 1 tab once daily [Active]; digoxin 125 mcg (0.125 mg) Oral tab 1 tab 3 X weekly [Active]; metoprolol tartrate 25 mg Oral tab 0.5 tab 2 times per day [Active]; midodrine 5 mg Oral tab PRN with dialysis [Active]; midodrine 10 mg Oral tab 1 tab Q8H, don't take before dialysis, bring pills to traetment. [Active]; pantoprazole 40 mg Oral TbEC 1 tab once daily [Active]; - PMHx: 12:10 Hypertensive disorder; High Cholesterol; stage 4 kidney failure; Dialysis; Congestive ll1 heart failure; Atrial fibrillation; - PSHx: 12:10 back surgery; Dialysis catheter LEFT upper chest; ll1 - Immunization history:: Client reports receiving the 2nd dose of the Covid vaccine. - Social history:: Smoking status: Patient denies any tobacco usage or history of. Screenin:42 [facility] ED Fall Risk Assessment (Adult) History of falling in the last 3 months, iw including since admission Yes- single mechanical fall (1 pt). Abuse screen: Denies threats or abuse. Denies injuries from another. Nutritional screening: No deficits noted. Tuberculosis screening: No symptoms or risk factors identified. Assessment: 13:41 General: Appears uncomfortable, ill, obese, Behavior is cooperative. Neuro: Newman iw Agitation-Sedation Scale (RASS): -1 Drowsy Level of Consciousness is awake, Oriented to person, place, time. Cardiovascular: Rhythm is. Respiratory: Airway is patent Respiratory effort is labored, Breath sounds are diminished bilaterally. Derm: Skin is intact, Skin is dusky, pale. 13:43 Reassessment: order for BIPAP, RT at bedside , family at bedside. iw 14:52 Reassessment: pt remains drowsy but awakens easily to verbal stimuli, remains on Bipap, iw 100 %. 17:24 Reassessment: Patient appears in no apparent distress at this time. Patient and/or iw family updated on plan of care and expected duration. Pain level reassessed. pt ttok BiPAP mask off, refuses to put it back on, symptoms seem to have improved, placed on 4 L NC, SpO2 at 97% Dr. Lantigua notified , verbal order for repeat VBG. 19:30 General: Appears in no apparent distress. comfortable, obese, well developed, Behavior pf1 is calm, cooperative, quiet, Patient sleeping at this time.. 19:30 Pain: Complains of pain in patient C/O chronic back pain of 7. Neuro: No deficits pf1 noted. Level of Consciousness is awake, alert, obeys commands, Oriented to person, place, time. Neuro: Pupils are PERRLA, Pupil Size: 3mm. Cardiovascular: No deficits noted. Capillary refill < 3 seconds Patient's skin is warm and dry. Rhythm is atrial fibrillation. Respiratory: Airway is patent Trachea midline Respiratory effort is even, unlabored, Respiratory pattern is regular, symmetrical, Breath sounds are diminished bilaterally. GI: Reports diarrhea, Patient stated onset of diarrhea was today. : No deficits noted. No signs and/or symptoms were reported regarding the genitourinary system. EENT: No deficits noted. No signs and/or symptoms were reported regarding the EENT system. Derm: Skin is intact, Skin is dusky, pale. Vital Signs: 12:11 BP 88 / 41; Pulse 66; Resp 20; Temp 97.3; Pulse Ox 100% on 4 lpm NC; Weight 108.86 kg; ll1 Height 5 ft. 7 in. (170.18 cm); Pain 9/10; 12:18 BP 106 / 46; ll1 14:52 BP 95 / 59; Pulse 74; Resp 20; Pulse Ox 100% on BiPAP; iw 17:26 BP 102 / 52; Pulse 77; Resp 26; Pulse Ox 97% on 4 lpm NC; iw 18:30 BP 103 / 62; Pulse 77; Resp 22; Pulse Ox 97% on 3 lpm NC; iw 19:30 BP 94 / 60; Pulse 76; Resp 22; Temp 98.3(O); Pulse Ox 100% on 3 lpm NC; Pain 7/10; pf1 12:11 Body Mass Index 37.59 (108.86 kg, 170.18 cm) ll1 ED Course: 12:03 Patient arrived in ED. mr 12:03 Ranjit Eagle MD is Private Physician. mr 12:14 Triage completed. ll1 12:58 Paul Lantigua MD is Attending Physician. sp3 12:58 Arm band placed on Patient placed in an exam room, on a stretcher. ss 13:09 Toyin Stout, RN is Primary Nurse. iw 13:24 XRAY Chest (1 view) In Process Unspecified. EDMS 13:42 Missed attempt(s): 22 gauge in right forearm. Bleeding controlled, band aid applied, iw catheter tip intact. 14:11 Ranjit Eagle MD is Hospitalizing Provider. sp3 17:37 Inserted saline lock: 22 gauge in left antecubital area, using aseptic technique. iw 18:30 No provider procedures requiring assistance completed. Patient admitted, IV remains in iw place. 19:19 Primary Nurse role handed off by Toyin Stout RN mw2 19:20 Patient has correct armband on for positive identification. Placed in gown. Bed in low pf1 position. Call light in reach. Side rails up X2. 20:09 Kim lozano, ARMANDO is Primary Nurse. pf1 11/01 07:12 Primary Nurse role handed off by Kim lozano RN Administered Medications: No medications were administered Medication: 10/31 13:42 VIS not applicable for this client. iw Outcome: 14:12 Decision to Hospitalize by Provider. sp3 11/01 10:56 Patient left the ED. ph Signatures: Dispatcher [employer] EDMS Narda Butler Lukas, Ashley mr Toyin Stout, ARMANDO ROBERTS iw Alecia Joya RN RN Juli Salazar RN RN Maria Antonia Worley mw2 Morris Pitts RN RN ll1 Paul Lantigua MD MD sp3 Kim lozano RN RN pf1 Corrections: (The following items were deleted from the chart) 10/31 12:59 12:14 Arm band placed on Patient placed in an exam room, on a stretcher, ll1 14:53 14:52 Home Meds: midodrine Oral; iw iw
[2022-10-31 15:07] LABS: Protime INR 1.79
[2022-10-31 15:38] LABS: Blood Morphology Comment NOTED (NOT SEEN); Platelet Estimate ADEQ
[2022-10-31 15:39] LABS: Anisocytosis 1+; Polychromasia 1+
[2022-10-31 15:53] LABS: Bilirubin Direct 0.4 mg/dL (0-0.2); Bilirubin Total 0.8 mg/dL (0.2-1.0); Magnesium 2.1 mg/dL (1.6-2.4); Potassium 3.3 mmol/L (3.5-5.1); Protein, Total 7.3 g/dL (6.4-8.2); Troponin High Sensitivity 16.6 pg/mL (<58.9)
[2022-10-31 16:49] LABS: SARS-CoV-2 Antigen Rapid Res Negative (Negative)
[2022-10-31 17:40] LABS: Arterial Blood Carboxyhemoglob 1.4 % (0-1.5); Blood Gas Oxyhemoglobin 55.1 % (94-97); Blood O2 Saturation 56.6 % (92-98.5)
[2022-10-31] MEDS ORDERED: PROMETHAZINE 25 MG TABLET PO PRN (21:53)
--- NOTE | 2022-10-31 22:05 | P.HP ---
Certification for Inpatient Patient admitted to: Observation With expected LOS: <2 Midnights Patient will require the following post-hospital care: None Practitioner: I am a practitioner with admitting privileges, knowledge of patient current condition, hospital course, and medical plan of care. Services: Services provided to patient in accordance with Admission requirements found in Title 42 Section 412.3 of the Code of Federal Regulations Patient History Date of Service: 10/31/22 Primary Care Provider: Fco Reason for admission: esrd, hypotension History of Present Illness: Patient is an office patient of [employer]. She has a history of esrd, htn, atrial fib and chf. She was at dialysis today. Was found to be hypotensive. The patient was very lethargic and sent to the hospital. She is currently on abipap. The patient is arousable. However not able to give a good history. She has been getting progressively weaker over the past few months. She has had several hospitalizations. Allergies cefepime Allergy (Verified 10/26/21 06:30) Hives codeine Allergy (Verified 05/20/22 05:03) Itching levofloxacin Allergy (Verified 10/26/21 06:30) Hives/Rash morphine Allergy (Verified 05/20/22 05:03) Itching Penicillins Allergy (Verified 10/26/21 06:30) Hives/Rash sulfamethoxazole [From Bactrim] Allergy (Verified 05/20/22 05:03) Hives trimethoprim [From Bactrim] Allergy (Verified 05/20/22 05:03) Hives Home Medications: Apixaban [Eliquis] 2.5 mg PO BID 05/19/22 Bumetanide 1 tab PO DAILY 05/19/22 Midodrine HCl 1 tab PO TID 05/19/22 Pantoprazole [Protonix Tab*] 1 tab PO ONCE 05/19/22 Sevelamer Carbonate [Renvela] 800 mg PO TID 05/19/22 Amiodarone HCl [Cordarone*] 200 mg PO BID 90 Days #180 tab 10/20/22 Alendronate Sodium 70 mg PO 1X 10/25/22 Gabapentin 300 mg PO DAILY 10/25/22 Linaclotide [Linzess] 72 mcg PO DAILY AFTER SUPPER 90 Days #90 tab 10/26/22 Promethazine Tab [Phenergan] 25 mg PO Q6HP PRN 30 Days #90 tab 10/26/22 - Past Medical/Surgical History Diabetic: No -: Chronic hypotension -: Hyperlipidemia -: Chronic anticoagulation use -: History of nephrolithiasis requiring stent placement -: Recurrent UTI -: End-stage renal disease -: CHF -: HTN -: A-Fib -: tubal ligation -: dialysis port -: cholecystectomy -: right broken wrist -: lasik -: cataracts removed - Family History Sister -: Cancer Notes: per pt, sister has lung cancer and is being treated for a "spot on her brain" - Social History Alcohol use: No CD- Drugs: No Caffeine use: Yes Review of Systems is unable to be obtained Physical Examination - Physical Exam General: In no apparent distress, Confused HEENT: Atraumatic, PERRLA, Mucous membr. moist/pink, EOMI, Sclerae nonicteric Neck: Supple, 2+ carotid pulse no bruit, No LAD, Without JVD or thyroid abnormality Respiratory: Clear to auscultation bilaterally, Normal air movement Cardiovascular: Regular rate/rhythm, Normal S1 S2 Gastrointestinal: Normal bowel sounds, No tenderness Musculoskeletal: No tenderness Integumentary: No rashes Neurological: Normal gait, Normal speech, Normal strength at 5/5 x4 extr, Normal tone, Normal affect Lymphatics: No axilla or inguinal lymphadenopathy - Studies Laboratory Data (last 24 hrs) 10/31/22 14:38: PT 19.7 H, INR 1.79 10/31/22 14:38: Sodium 140, Potassium 3.3 L, BUN 25 H, Creatinine 4.48 H, Gluc ose 108 H, Magnesium 2.1, Total Bilirubin 0.8, AST 5 L, ALT 12 L, Alkaline Phosphatase 134 H 10/31/22 13:47: WBC 10.60, Hgb 8.8 L, Hct 28.5 L, Plt Count 183 Assessment and Plan - Problems (Diagnosis) (1) CHF (congestive heart failure) Current Visit: No Status: Chronic Plan: Patient was hypotensive. found to be hypercapnic in the er. Will continue the bipap. The patient has a normal chest xray. No fluid overload Qualifiers: Heart failure type: diastolic Heart failure chronicity: chronic Qualified Code(s): I50.32 - Chronic diastolic (congestive) heart failure (2) Atrial fibrillation Current Visit: No Status: Acute Plan: continue amiodarone and metoprolol. Qualifiers: Atrial fibrillation type: unspecified chronic Qualified Code(s): I48.20 - Chronic atrial fibrillation, unspecified; I48.2 - Chronic atrial fibrillation (3) ESRD (end stage renal disease) on dialysis Current Visit: No Status: Chronic Plan: consult Dr. Powers to continue her dialysis Discharge Plan: Home - Advance Directives Does patient have a Living Will: No Does patient have a Durable POA for Healthcare: No - Code Status/Comfort Care Code Status Assessed: Yes Code Status: Full Code Physician Review: Patient Assessed, Agree with Above Assessment and Plan Critical Care: No Time Spent Managing Pts Care (In Minutes): 45
[2022-11-01] MEDS ORDERED: PANTOPRAZOLE 40MG TABLET PO ONE ×2 (01:00→08:51)
[2022-11-01] MEDS ORDERED: PROMETHAZINE 25 MG TABLET ONE (02:35)
[2022-11-01 02:49] LABS: Absolute Lymphocytes (CBC) 1.2 K/uL (0.7-4.9); Hematocrit 29.4 % (36.0-45.0); Lymphocytes % 10.6 % (15.3-44.8); MCV 98.9 fL (80-100); MPV 7.9 fL (7.6-11.3); RBC Red Blood Cell Count 2.97 M/uL (3.86-4.86)
[2022-11-01 03:25] LABS: Potassium 3.8 mmol/L (3.5-5.1)
[2022-11-01 04:29] VITALS: BMI 37.4
--- NOTE | 2022-11-01 07:50 | P.DS ---
Admission Date: 10/31/22 Discharge Date: 11/01/22 Primary Care Provider: Fco Disposition: ROUTINE DISCHARGE Discharge Condition: GOOD Reason for Admission: esrd, hypotension - Problems (1) CHF (congestive heart failure) Current Visit: No Status: Chronic Qualifiers: Heart failure type: diastolic Heart failure chronicity: chronic Qualified Code(s): I50.32 - Chronic diastolic (congestive) heart failure (2) Atrial fibrillation Current Visit: No Status: Acute Qualifiers: Atrial fibrillation type: unspecified chronic Qualified Code(s): I48.20 - Chronic atrial fibrillation, unspecified; I48.2 - Chronic atrial fibrillation (3) ESRD (end stage renal disease) on dialysis Current Visit: No Status: Chronic (4) Acute hemorrhoid Current Visit: Yes Status: Acute Brief History of Present Illness: Patient is an office patient of [employer]. She has a history of esrd, htn, atrial fib and chf. She was at dialysis today. Was found to be hypotensive. The patient was very lethargic and sent to the hospital. She is currently on abipap. The patient is arousable. However not able to give a good history. She has been getting progressively weaker over the past few months. She has had several hospitalizations. Hospital Course: Patient came in with mental status changes. She was placed on a bipap. She recovered and took it off. Patient is doing well this morning. Per the nursing staff she was awake playing games on her phone and eating throughout the evening. She is ready to go home. Asked for some medication for a hemorrhoid. We can comply with this. Thank you for allowing me to take part in her care. Vital Signs/Physical Exam: Temp Pulse Resp BP Pulse Ox 98 F 8 L 20 95/65 100 11/01/22 04:00 11/01/22 06:44 11/01/22 06:44 11/01/22 06:44 11/01/22 06:44 General: Alert, In no apparent distress HEENT: Atraumatic, PERRLA, EOMI Neck: Supple, JVD not distended Respiratory: Clear to auscultation bilaterally, Normal air movement Cardiovascular: Regular rate/rhythm, Normal S1 S2 Gastrointestinal: Normal bowel sounds, No tenderness Musculoskeletal: No tenderness Integumentary: No rashes Neurological: Normal speech, Normal tone, Normal affect Lymphatics: No axilla or inguinal lymphadenopathy Laboratory Data at Discharge: WBC 11.10 K/uL (4.3-10.9) H 11/01/22 02:10 Hgb 9.0 g/dL (12.0-15.0) L 11/01/22 02:10 Hct 29.4 % (36.0-45.0) L 11/01/22 02:10 Plt Count 183 K/uL (152-406) 11/01/22 02:10 PT 19.7 SECONDS (9.5-12.5) H 10/31/22 14:38 INR 1.79 10/31/22 14:38 Sodium 139 mmol/L (136-145) 11/01/22 02:10 Potassium 3.8 mmol/L (3.5-5.1) D 11/01/22 02:10 BUN 33 mg/dL (7-18) H 11/01/22 02:10 Creatinine 5.18 mg/dL (0.55-1.02) H* 11/01/22 02:10 Glucose 117 mg/dL (74-106) H 11/01/22 02:10 Magnesium 2.1 mg/dL (1.6-2.4) 10/31/22 14:38 Total Bilirubin 0.8 mg/dL (0.2-1.0) 10/31/22 14:38 AST 5 U/L (15-37) L 10/31/22 14:38 ALT 12 U/L (13-56) L 10/31/22 14:38 Alkaline Phosphatase 134 U/L (45-117) H 10/31/22 14:38 Home Medications: Apixaban [Eliquis] 2.5 mg PO BID 05/19/22 Bumetanide 1 tab PO DAILY 05/19/22 Midodrine HCl 1 tab PO TID 05/19/22 Pantoprazole [Protonix Tab*] 1 tab PO ONCE 05/19/22 Sevelamer Carbonate [Renvela] 800 mg PO TID 05/19/22 Amiodarone HCl [Cordarone*] 200 mg PO BID 90 Days #180 tab 10/20/22 Alendronate Sodium 70 mg PO 1X 10/25/22 Gabapentin 300 mg PO DAILY 10/25/22 Linaclotide [Linzess] 72 mcg PO DAILY AFTER SUPPER 90 Days #90 tab 10/26/22 Promethazine Tab [Phenergan] 25 mg PO Q6HP PRN 30 Days #90 tab 10/26/22 Hydrocortisone/Pramoxine [Analpram Hc 2.5% Cream] 30 gm RC BID 5 Days #30 gm 11/01/22 New Medications: Hydrocortisone/Pramoxine [Analpram Hc 2.5% Cream] 30 gm RC BID 5 Days #30 gm Diet: Renal Activity: Ad mari Followup: Ranjit Eagle MD [Primary Care Provider] - Time spent managing pt's care (in minutes): 30
[2022-11-01] MEDS ORDERED: SEVELAMER CARBONATE 800 MG TABLET PO SCH (08:00)
[2022-11-01] MEDS ORDERED: AMIODARONE HCL 200 MG TAB ONE (08:36)
[2022-11-01] MEDS ORDERED: APIXABAN 5 MG TABLET ONE (08:37)
[2022-11-01] MEDS ORDERED: GABAPENTIN 300 MG CAP ONE (08:37)
[2022-11-01] MEDS ORDERED: AMIODARONE HCL 200 MG TAB PO SCH (09:00)
[2022-11-01] MEDS ORDERED: APIXABAN 5 MG TABLET PO SCH (09:00)
[2022-11-01] MEDS ORDERED: PANTOPRAZOLE 40MG TABLET PO SCH (09:00)
[2022-11-01] MEDS ORDERED: HOME MED 1 EA UNK (Midodrine Hcl [Midodrine Hcl] 10 MG Tablet) PO SCH (09:00)
[2022-11-01] MEDS ORDERED: GABAPENTIN 300 MG CAP PO SCH (09:00)
[2022-11-01 09:03] VITALS: O2SAT 98
[2022-11-01 09:04] VITALS: BP 96/81; TEMP 97.5
--- NOTE | 2022-11-01 11:55 | PN ---
Date of Progress Note: 11/01/2022 Subjective: The patient was admitted with hypercapnic respiratory failure, placed on BiPAP. The pat ient recovered very well. The patient feeling better. Physical Examination: Vital Signs: Blood pressure 95/65, pulse of 81. Chest: Clear to auscultation. Heart: S1, S2. Systolic murmur. Abdomen: Soft, nontender. Extremity: Trace edema. Neurologic: Alert. No focality. No tremor. Oriented x3. Laboratory Data: Sodium 139, potassium 3.8, bicarb 27, BUN 33, creatinine 5.1, calcium 9. Hemoglobi n 9. Current Medications: The patient on include; 1.Renvela. 2.Promethazine. 3.Midodrine before dialysis. 4.Bumex. 5.Eliquis. 6.Amiodarone. 7.Alendronate. Assessment And Plan: 1.End-stage renal disease. Normal volume. Continue dialysis TTS. We will schedule for tomorrow. 2.Hypertension, currently on the lower side. Keep holding all blood pressure medications. 3.Hyponatremia, dilutional. Will be corrected with dialysis. 4.Hypokalemia. No need for supplement. We will dialyze on high potassium bath. 5.Congestive heart failure, currently normal volume. We will arrange for dialysis tomorrow as outpatient. The patient cleared from the Renal standpoint for discharge sina YO Voice ID: [id number] Report ID: [id number]
--- NOTE | 2022-11-01 12:01 | CON ---
Date of Consultation: 11/01/2022 Reason For Consultation: Elevated BUN and creatinine, fluid management. History Of Present Illness: This is a pleasant 67-year-old female, well known to me from dialysis wi th significant past medical history of hypertension, hyperlipidemia, end-stage renal disease on hemod ialysis Sunday, , Sunday, nephrolithiasis. The patient apparently went to the dialysis, i n the dialysis found to have low blood pressure and shortness of breath with altered mental status. The patient found to have hypercapnic respiratory failure. The patient placed on BiPAP and her condi tion started being improved. The patient had full dialysis in the unit. Past Medical History: Includes; 1.Nephrolithiasis. 2.Hypertension. 3.Hyperlipidemia. 4.End-stage renal disease. Past Surgical History: Includes urethral stent placement. Family History: Positive for hypertension. Social History: Denied smoking, denied drinking, denied drugs abuse. Allergies: TO CEFEPIME, LEVAQUIN, AND PENICILLIN. Review of Systems: Head and Neck: No red eye. No ear pain. GI: No nausea. No vomiting. : No polyuria. No dysuria. No hematuria. Car Clerk Pullman: No vaginal discharge. Respiratory: Has shortness of breath. Cardiovascular: No chest pain. Endocrine: No polydipsia. Skin: No rash. Neuro: Has altered mental status. Musculoskeletal: Generalized fatigue. Physical Examination: General: When I saw the patient; the patient lying in bed. Vital Signs: Blood pressure of 96/63, pulse of 85, afebrile. Chest: Faint rales bilateral base. Heart: S1, S2. Regular. Abdomen: Soft, nontender. Extremity: Trace edema. Neuro: Sleepy. No focality. No tremor. Laboratory Data: Hemoglobin 8.8. Sodium 140, potassium 3.3, bicarb 26, BUN 25, creatinine 4.4, calc ium 8.7. Home Medications: Include; 1.Sevelamer. 2.Promethazine. 3.Midodrine. 4.Bumex. 5.Eliquis. 6.Amiodarone. 7.Alendronate. Assessment And Plan: 1.End-stage renal disease, stable. Continue dialysis TTS. 2.Hyponatremia, going to be corrected with dialysis. 3.Hypokalemia. We will dialyze on high potassium bath. 4.Hypertension, controlled, currently on the lower side. Hold all blood pressure medications. 5.Hypercapnic respiratory failure. Continue BiPAP. The patient's BiPAP outpatient has been adjuste d. 6.Diabetes as by primary. JOVANY/KWAN Voice ID: [id number] Report ID: [id number]
--- NOTE | 2022-11-01 14:55 | EKG ---
Test Date: 2022-10-31 Test Time: 14:49:30 [employer] Loan Originator: ANCELMO MEASUREMENT RESULTS: Intervals: Rate: 69 [place]: QRSD: 96 QT: 596 QTc: 638 [place]: P: MI: QRS: 91 T: 114 INTERPRETIVE STATEMENTS: Atrial fibrillation Rightward axis Incomplete right bundle branch block Nonspecific ST and T wave abnormality Abnormal ECG Compared to ECG 10/25/2022 10:43:14 Right-axis deviation now present Incomplete right bundle-branch block now present ST (T wave) deviation still present Electronically Signed On 11-01-22 14:54:13 QUALITY ASSURANCE MONITOR CHASSIS by Quentin Chamberlain
[2022-11-01] MEDS ORDERED: ENOXAPARIN 30 MG/0.3 ML SQ SCH (17:00)
[2022-11-01] MEDS ORDERED: HOME MED 1 EA UNK (Linaclotide [Linzess] 72 MCG Capsule) PO SCH (17:30)
== END 2022-11-01 10:58 | disposition home or self-care (01) | DRG 314 ==
LOC: ER 11:56 → ERHOLD 14:54
PROVIDERS: ADMIT Internal Medicine; ATTEND Internal Medicine
PROC: 5A09357 Assistance with Respiratory Ventilation, Less than 24 Consecutive Hours, Continuous Positive Airway Pressure (ICD-10-PCS; principal; 2022-10-31)
DX: I95.89 Other hypotension (principal); J96.92 Respiratory failure, unspecified with hypercapnia; N18.6 End stage renal disease; I12.0 Hypertensive chronic kidney disease with stage 5 chronic kidney disease or end stage renal disease; I50.32 Chronic diastolic (congestive) heart failure; E87.1 Hypo-osmolality and hyponatremia; E11.22 Type 2 diabetes mellitus with diabetic chronic kidney disease; E87.6 Hypokalemia; E78.5 Hyperlipidemia, unspecified; N20.0 Calculus of kidney; R01.1 Cardiac murmur, unspecified; I48.91 Unspecified atrial fibrillation; K64.9 Unspecified hemorrhoids; Z99.2 Dependence on renal dialysis; Z79.01 Long term (current) use of anticoagulants; Z79.899 Other long term (current) drug therapy; Z88.0 Allergy status to penicillin; Z88.3 Allergy status to other anti-infective agents; Z88.8 Allergy status to other drugs, medicaments and biological substances; Z87.440 Personal history of urinary (tract) infections; Z90.49 Acquired absence of other specified parts of digestive tract; Z80.1 Family history of malignant neoplasm of trachea, bronchus and lung
CPT/HCPCS: 36415; 71045; 80048; 80076; 82805; 83735; 83880; 84484; 85025; 85610; 87811; 93005; 94660; 99284; Q0169

== ENCOUNTER 2022-11-04 08:40 | Observation (INO) | payer OTHER, BC ==
--- OUTSIDE RECORDS SUMMARY | 2022-11-04 09:11 | XMS REPORT | Continuity of Care Document ---
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 the first day then 1 tablet by mouth days 2-5. (Pt is on hemodialys is)., X 5 day, # 6 tab, 0 Refill(s), Pharmacy: [facility], 170.18, cm, 04/19/22 14:52:00 CDT, Height, 106.818, kg, 04/19/22 14... Zithromax 2022-0 Yes See [employer] [facility] 250 6-29 Instructio l mg oral 21:14: ns, Take 2 Herm connie tablet 00 tablets by mouth the first day then 1 tablet by mouth days 2-5. (Pt is on hemodialys is)., X 5 day, # 6 tab, 0 Refill(s), Pharmacy: [facility], 170.18, cm, 04/19/22 14:52:00 CDT, Height, 106.818, kg, 04/19/22 14... Zithromax 2022-0 Yes See [employer] 250 6-29 Instructio l mg oral 21:14: ns, Take 2 Herm connie tablet 00 tablets by mouth the first day then 1 tablet by mouth days 2-5. (Pt is on hemodialys is)., X 5 day, # 6 tab, 0 Refill(s), Pharmacy: [facility], 170.18, cm, 04/19/22 14:52:00 CDT, Height, 106.818, kg, 04/19/22 14... [facility] 2022-[facility] oral 21:14: ns, Take 2 Herm connie tablet 00 tablets by mouth the first day then 1 tablet by mouth days 2-5. (Pt is on hemodialys is)., X 5 day, # 6 tab, 0 Refill(s), Pharmacy: [facility], 170.18, cm, 04/19/22 14:52:00 CDT, Height, 106.818, kg, 04/19/22 14... Zithromax 2022-0 Yes See [facility] 250 6-29 Instructio l mg oral 21:14: ns, Take 2 Herm connie tablet 00 tablets by mouth the first day then 1 tablet by mouth days 2-5. (Pt is on hemodialys is)., X 5 day, # 6 tab, 0 Refill(s), Pharmacy: [facility], 170.18, cm, 04/19/22 14:52:00 CDT, Height, 106.818, kg, 04/19/22 14... [facility]ithromax 2022-0 [facility] oral 21:14: ns, Take 2 Herm connie tablet 00 tablets by mouth the first day then 1 tablet by mouth days 2-5. (Pt is on hemodialys is)., X 5 day, # 6 tab, 0 Refill(s), Pharmacy: [facility], 170.18, cm, 04/19/22 14:52:00 CDT, Height, 106.818, kg, 04/19/22 14... Zithromax 2022-0 Yes See [facility] 250 6-29 Instructio l mg oral 21:14: ns, Take 2 Herm connie tablet 00 tablets by mouth the first day then 1 tablet by mouth days 2-5. (Pt is on hemodialys is)., X 5 day, # 6 tab, 0 Refill(s), Pharmacy: [facility], 170.18, cm, 04/19/22 14:52:00 CDT, Height, 106.818, kg, 04/19/22 14... Zithromax 2022-0 Yes See [employer] 250 6-29 Instructio l mg oral 21:14: ns, Take 2 Herm connie tablet 00 tablets by mouth the first day then 1 tablet by mouth days 2-5. (Pt is on hemodialys is)., X 5 day, # 6 tab, 0 Refill(s), Pharmacy: [facility], 170.18, cm, 04/19/22 14:52:00 CDT, Height, 106.818, kg, 04/19/22 14... Zithromax 2022-0 Yes See [employer] 250 6-29 Instructio l mg oral 21:14: ns, Take 2 Herm connie tablet 00 tablets by mouth the first day then 1 tablet by mouth days 2-5. (Pt is on hemodialys is)., X 5 day, # 6 tab, 0 Refill(s), Pharmacy: [facility], 170.18, cm, 04/19/22 14:52:00 CDT, Height, 106.818, kg, 04/19/22 14... Velphoro 2022-0 Yes 500 mg, Memori a 6-29 CHEW, l 20:13: Daily, Philip 00 take with food, 0 Refill(s) Velphoro 2022-0 Yes 500 mg, Memori a 6-29 CHEW, l 20:13: Daily, Denis 00 take with food, 0 Refill(s) Velphoro 2022-0 Yes 500 mg, Memori a 6-29 CHEW, l 20:13: Daily, Philip 00 take with food, 0 Refill(s) Velphoro 2022-0 Yes 500 mg, Memori a 6-29 CHEW, l 20:13: Daily, Denis 00 take with food, 0 Refill(s) Velphoro 2022-0 Yes 500 mg, Memori a 6-29 CHEW, l 20:13: Daily, take with food, 0 Refill(s) Velphoro 2022-0 Yes 500 mg, Memori a 6-29 CHEW, l 20:13: Daily, take with food, 0 Refill(s) Velphoro 2022-0 Yes 500 mg, Memori a 6-29 CHEW, l 20:13: Daily, take with food, 0 Refill(s) Velphoro 2022-0 Yes 500 mg, Memori a 6-29 CHEW, l 20:13: Daily, take with food, 0 Refill(s) Velphoro 2022-0 Yes 500 mg, Memori a 6-29 CHEW, l 20:13: Daily, take with food, 0 Refill(s) sevelamer 2022-0 Yes 2,400 mg = Me moria carbonate 6-29 3 tab, PO, l 800 mg oral 20:12: TID-Meals, Philip tablet 00 # 270 tab, 0 Refill(s) sevelamer 2022-0 Yes 2,400 mg = Me moria carbonate 6-29 3 tab, PO, l 800 mg oral 20:12: TID-Meals, Philip tablet 00 # 270 tab, 0 Refill(s) sevelamer 2022-0 Yes 2,400 mg = Me moria carbonate 6-29 3 tab, PO, l 800 mg oral 20:12: TID-Meals, Philip tablet 00 # 270 tab, 0 Refill(s) sevelamer 2022-0 Yes 2,400 mg = Me moria carbonate 6-29 3 tab, PO, l 800 mg oral 20:12: TID-Meals, Philip tablet 00 # 270 tab, 0 Refill(s) sevelamer 2022-0 Yes 2,400 mg = Me moria carbonate 6-29 3 tab, PO, l 800 mg oral 20:12: TID-Meals, Philip tablet 00 # 270 tab, 0 Refill(s) sevelamer 2022-0 Yes 2,400 mg = Me moria carbonate 6-29 3 tab, PO, l 800 mg oral 20:12: TID-Meals, Philip tablet 00 # 270 tab, 0 Refill(s) sevelamer 2022-0 Yes 2,400 mg = Me moria carbonate 6-29 3 tab, PO, l 800 mg oral 20:12: TID-Meals, Philip tablet 00 # 270 tab, 0 Refill(s) [...] tab, PO, l oral 20:11: Daily, 0 Philip enteric 00 Refill(s) coated tablet pantoprazol 2022-0 Yes 40 mg = 1 M emoria e 40 mg 6-29 tab, PO, l oral 20:11: Daily, 0 Philip enteric 00 Refill(s) coated tablet pantoprazol 2022-0 [...] tab, PO, l oral 20:11: Daily, 0 Philip enteric 00 Refill(s) coated tablet pantoprazol 2022-0 [...] tab, PO, l oral 20:11: Daily, 0 Philip enteric 00 Refill(s) coated tablet pantoprazol Yes 40 mg = 1 M emoria e 40 mg 6-29 tab, PO, l oral 20:11: Daily, 0 Philip enteric 00 Refill(s) coated tablet oxyCODONE 5 [...] Q12H, 0 Her hunt 00 Refill(s) Nitazoxanid 2022-0 Yes 500 mg = 1 Memoria e 500 mg 6-29 tab, PO, l oral tablet 20:08: Q12H, 0 Her hunt 00 Refill(s) metoprolol 2021-0 Yes 25 mg = 1 Me moria tartrate 25 6-29 tab, PO, l mg oral 20:07: BID, 0 Philip tablet 00 Refill(s) metoprolol 2021-0 Yes 25 mg = 1 Me moria tartrate 25 6-29 tab, PO, l mg oral 20:07: BID, 0 Denis tablet 00 Refill(s) metoprolol 2021-0 Yes 25 mg = 1 Me moria tartrate 25 6-29 tab, PO, l mg oral 20:07: BID, 0 Philip tablet 00 Refill(s) metoprolol 2021-0 Yes 25 mg = 1 Me moria tartrate 25 6-29 tab, PO, l mg oral 20:07: BID, 0 Denis tablet 00 Refill(s) metoprolol 2021-0 Yes 25 mg = 1 Me moria tartrate 25 6-29 tab, PO, l mg oral 20:07: BID, 0 Philip tablet 00 Refill(s) metoprolol 2021-0 Yes 25 mg = 1 Me moria tartrate 25 6-29 tab, PO, l mg oral 20:07: BID, 0 Philip tablet 00 Refill(s) metoprolol 2021-0 Yes 25 mg = 1 Me moria tartrate 25 6-29 tab, PO, l mg oral 20:07: BID, 0 Philip tablet 00 Refill(s) metoprolol 2021-0 Yes 25 [...] l oral tablet 20:05: PO, TID, 0 Philip 00 Refill(s) methocarbam 2-0 Yes 250 mg = Me moria ol 500 mg 6-29 0.5 tab, l oral tablet 20:05: PO, TID, 0 Denis 00 Refill(s) methocarbam 2-0 Yes 250 mg = Me moria ol 500 mg 6-29 0.5 tab, l oral tablet 20:05: PO, TID, 0 Philip 00 Refill(s) methocarbam 2-0 Yes 250 mg = Me moria ol 500 mg 6-29 0.5 tab, l oral tablet 20:05: PO, TID, 0 Philip 00 Refill(s) methocarbam 2021-0 Yes 250 mg = Me moria ol 500 mg 6-29 0.5 tab, l oral tablet 20:05: PO, TID, 0 Denis 00 Refill(s) Alphagan P 2-0 Yes 1 drp, Memor ia 0.1% 6-29 OPTH, Q12H l ophthalmic 20:04: Philip solution folic acid 2021-0 Yes 1 mg, PO, Me moria 6-29 Daily, 0 l 20:04: Refill(s) Alphagan P 2-0 Yes 1 drp, Memor ia 0.1% 6-29 OPTH, Q12H l ophthalmic 20:04: Ednis solution folic acid 2-0 Yes 1 mg, PO, Me moria 6-29 Daily, 0 l 20:04: Refill(s) Alphagan P 2022-0 Yes 1 drp, Memor ia 0.1% 6-29 OPTH, Q12H l ophthalmic 20:04: Denis solution 00 folic acid 2021-0 Yes 1 mg, PO, Me moria 6-29 Daily, 0 l 20:04: Refill(s) Philip Alphagan P 2021-0 Yes 1 drp, Memor ia 0.1% 6-29 OPTH, Q12H l ophthalmic 20:04: Philip solution 00 folic acid 2021-0 Yes 1 mg, PO, Me moria 6-29 Daily, 0 l 20:04: Refill(s) Philip Alphagan P 2021-0 Yes 1 drp, Memor ia 0.1% - OPTH, Q12H l ophthalmic 20:04: Philip solution 00 folic acid 2021-0 Yes 1 mg, PO, Me moria 6-29 Daily, 0 l 20:04: Refill(s) Philip Alphagan P 2021-0 Yes 1 drp, Memor [...] moria 6-29 Daily, 0 l 20:04: Refill(s) Philip Alphagan P 2021-0 Yes 1 drp, Memor ia 0.1% 6-29 OPTH, Q12H l ophthalmic 20:04: Philip solution 00 folic acid 2021-0 Yes 1 mg, PO, Me moria 6-29 Daily, 0 l 20:04: Refill(s) Philip 00 Oxygen 2021-0 Yes 1 btl, Memoria 6-29 MISC, l 20:03: Daily, 2 Denis 00 liters, 0 Refill(s) Oxygen 2021-0 Yes 1 btl, Memoria 6-29 MISC, l 20:03: Daily, 2 Philip 00 liters, 0 Refill(s) Oxygen 2021-0 Yes 1 btl, Memoria 6-29 MISC, l 20:03: Daily, 2 Denis 00 liters, 0 Refill(s) Oxygen 2021-0 Yes 1 btl, Memoria 6-29 MISC, l 20:03: Daily, 2 Philip 00 liters, 0 Refill(s) Oxygen 2021-0 Yes 1 btl, Memoria 6-29 MISC, l 20:03: Daily, 2 Philip 00 liters, 0 Refill(s) Oxygen 2021-0 Yes 1 btl, Memoria 6-29 MISC, l 20:03: Daily, 2 Philip 00 liters, 0 Refill(s) Oxygen 2021-0 Yes 1 btl, Memoria 6-29 MISC, l 20:03: Daily, 2 Philip 00 liters, 0 Refill(s) Oxygen 2021-0 Yes [...] PO, Q12H, l tablet 20:02: tab, 0 Philip 00 Refill(s) Eliquis 2.5 2021-0 Yes 2.5 mg, Mem oria mg oral 6-29 PO, Q12H, l tablet 20:02: tab, 0 Philip 00 Refill(s) Eliquis 2.5 2021-0 Yes 2.5 mg, Mem oria mg oral 6-29 PO, Q12H, l tablet 20:02: tab, 0 Philip 00 Refill(s) Eliquis 2.5 2021-0 Yes 2.5 mg, Mem oria mg oral 6-29 PO, Q12H, l tablet 20:02: tab, 0 Denis 00 Refill(s) Eliquis 2.5 2021-0 Yes 2.5 mg, Mem oria mg oral 6-29 PO, Q12H, l tablet 20:02: tab, 0 Ednis 00 Refill(s) Eliquis 2.5 2021-0 Yes 2.5 mg, Mem oria mg oral 6-29 PO, Q12H, l tablet 20:02: tab, 0 Philip 00 Refill(s) Eliquis 2.5 2021-0 Yes 2.5 mg, Mem oria mg oral 6-29 PO, Q12H, l tablet 20:02: tab, 0 Denis 00 Refill(s) Eliquis 2.5 2021-0 Yes 2.5 mg, Mem oria mg oral 6-29 PO, Q12H, l tablet 20:02: tab, 0 Denis 00 Refill(s) doxycycline 2021- No 200mg Q.5D Take 200 [facility] (VIBRAMYCIN - 06-25 mg by ) 100 MG 13:07: 00:00 mouth 2 Hospi ta capsule 01 :00 (two) l times a day. Take 200mg (x2 100mg capsules). Per patient started taking March 29, 2022 glucosam/ch 2021- No 1{tbl} Q.5D Take 1 M [facility] on-[facility]/C/m 04-[address] [facility] 13:07: [...] No 1{tbl} Q.5D Take 1 [facility] [place] [place] 04-16 tablet by [facility] 13:07: 00:00 mouth 2 Hospi ta (OSTEO [...] No 1{tbl} Q.5D Take 1 [facility]/ 04-16 tablet by [facility] 13:07: 00:00 mouth 2 Hospi ta (OSTEO 01 :00 (two) l BI-FLEX times a TRIPLE day. STRENGTH ORAL) NON 2021- No 1{capsu QD Take 1 [facility] FORMULARY 04-16-25 le} capsule by st 13:07: 00:00 mouth Hospita 01 :00 nightly. l Patient takes young living probiotic with 17 billion active cultures folic acid 2021-2021- No 1mg QD Take 1 Meth aiden (FOLVITE) 1 -15 05- tablet (1 st MG tablet 00:00: 04:59 mg total) Ho spita 00 :00 by mouth l daily for 30 days. folic acid 2021- No 1mg QD Take 1 Meth aiden (FOLVITE) 1 -15 05- tablet (1 st MG tablet 00:00: 04:59 mg total) Ho spita 00 :00 by mouth l daily for 30 days. folic acid 2021- No 1mg QD Take 1 Meth aiden (FOLVITE) 1 04-15 tablet (1 st MG tablet 00:00: 04:59 mg total) Ho spita 00 :00 by mouth l daily for 30 days. methocarbam 2021- No 250mg Q.[id number] Take 0.5 [facility] oL 04-[id number] (ROBAXIN) 00:00: 04:59 3D (250 mg Hosp naye 500 MG 00 :00 total) by l tablet mouth 3 (three) times a day for 7 days. nitazoxanid 2021-2021- No 500mg Q.5D Take 1 Me thodi e (ALINIA) 04-[address] 500 MG 00:00: 04:59 (500 mg Hospita tablet 00 :00 total) by l mouth 2 (two) times a day for 7 days. methocarbam 2021- No 250mg Q.[id number] Take 0.5 [facility] oL 04-[id number] (ROBAXIN) 00:00: 04:59 3D (250 mg Hosp naye 500 MG 00 :00 total) by l tablet mouth 3 (three) times a day for 7 days. nitazoxanid 2021-2021- No 500mg Q.5D Take 1 Me thodi e (ALINIA) 04-[address] 500 MG 00:00: 04:59 (500 mg Hospita tablet 00 :00 total) by l mouth 2 (two) times a day for 7 days. methocarbam 2021-0 2021- No 250mg Q.[id number] Take 0.5 [facility] oL 04-[id number] (ROBAXIN) 00:00: 04:59 3D (250 mg Hosp naye 500 MG 00 :00 total) by l tablet mouth 3 (three) times a day for 7 days. nitazoxanid 2021-2021- No 500mg Q.5D Take 1 Me thodi e (ALINIA) 6-25 07-[address] 500 MG 00:00: 04:59 (500 mg Hospita tablet 00 :00 total) by l mouth 2 (two) times a day for 7 days. oxyCODONE 2022-0 2022- [place] [id number] 5mg Q4H Take 1 Meth aiden (ROXICODONE 6-25 07-01 tablet (5 st ) 5 MG 00:00: 04:59 mg total) Hospi ta immediate 00 :00 by mouth l release every 4 tablet (four) hours as needed for severe pain for up to 20 doses .acute pain. Max Daily Amount: 30 mg oxyCODONE 2022-0 2022- [place] [id number] 5mg Q4H Take 1 Meth aiden (ROXICODONE 6-25 07-01 tablet (5 st ) 5 MG 00:00: 04:59 mg total) Hospi ta immediate 00 :00 by mouth l release every 4 tablet (four) hours as needed for severe pain for up to 20 doses .acute pain. Max Daily Amount: 30 mg oxyCODONE 2022-0 2022- No [id number] 5mg Q4H Take 1 Meth aiden (ROXICODONE 6-25 07-01 tablet (5 st ) 5 MG 00:00: 04:59 mg total) Hospi ta immediate 00 :00 by mouth l release every 4 tablet (four) hours as needed for severe pain for up to 20 doses .acute pain. Max Daily Amount: 30 mg tizanidine 2022-0 Yes 4 mg = 1 Mem oria 4 mg oral 5-16 tab, PO, l tablet 18:09: Bedtime, Philip 00 PRN NEEDED FOR MUSCLE SPASM, # 15 tab, 0 Refill(s), Pharmacy: [facility] #[id number], 165.1, cm, 10/17/21 15:23:00 MEDICAL DOCTOR MD, Height, 107.301, kg, 10/17/21 15:23:00 MEDICAL DOCTOR MD, Weight tizanidine 2022-0 Yes 4 mg = 1 Mem oria 4 mg oral 5-16 tab, PO, l tablet 18:09: Bedtime, Denis 00 PRN NEEDED FOR MUSCLE SPASM, # 15 tab, 0 Refill(s), Pharmacy: [facility] #[id number], 165.1, cm, 10/17/21 15:23:00 MEDICAL DOCTOR MD, Height, 107.301, kg, 10/17/21 15:23:00 MEDICAL DOCTOR MD, Weight tizanidine 2022-0 Yes 4 mg = 1 Mem oria 4 mg oral 5-16 tab, PO, l tablet 18:09: Bedtime, Philip 00 PRN NEEDED FOR MUSCLE SPASM, # 15 tab, 0 Refill(s), Pharmacy: [facility] #[id number], 165.1, cm, 10/17/21 15:23:00 MEDICAL DOCTOR MD, Height, 107.301, kg, 10/17/21 15:23:00 MEDICAL DOCTOR MD, Weight tizanidine 2022-0 Yes 4 mg = 1 Mem oria 4 mg oral 5-16 tab, PO, l tablet 18:09: Bedtime, Denis 00 PRN NEEDED FOR MUSCLE SPASM, # 15 tab, 0 Refill(s), Pharmacy: [facility] #[id number], 165.1, cm, 10/17/21 15:23:00 MEDICAL DOCTOR MD, Height, 107.301, kg, 10/17/21 15:23:00 MEDICAL DOCTOR MD, Weight tizanidine 2022-0 Yes 4 mg = 1 Mem oria 4 mg oral 5-16 tab, PO, l tablet 18:09: Bedtime, Denis 00 PRN NEEDED FOR MUSCLE SPASM, # 15 tab, 0 Refill(s), Pharmacy: [facility] #[id number], 165.1, cm, 10/17/21 15:23:00 MEDICAL DOCTOR MD, Height, 107.301, kg, 10/17/21 15:23:00 MEDICAL DOCTOR MD, Weight tizanidine 2022-0 Yes 4 mg = 1 Mem oria 4 mg oral 5-16 tab, PO, l tablet 18:09: Bedtime, Philip 00 PRN NEEDED FOR MUSCLE SPASM, # 15 tab, 0 Refill(s), Pharmacy: [facility] #[id number], 165.1, cm, 10/17/21 15:23:00 MEDICAL DOCTOR MD, Height, 107.301, kg, 10/17/21 15:23:00 MEDICAL DOCTOR MD, Weight tizanidine 2022-0 Yes 4 mg = 1 Mem oria 4 mg oral 5-16 tab, PO, l tablet 18:09: Bedtime, Philip 00 PRN NEEDED FOR MUSCLE SPASM, # 15 tab, 0 Refill(s), Pharmacy: [facility] #[id number], 165.1, cm, 10/17/21 15:23:00 MEDICAL DOCTOR MD, Height, 107.301, kg, 10/17/21 15:23:00 MEDICAL DOCTOR MD, Weight tizanidine 2-0 Yes 4 mg = 1 Mem oria 4 mg oral 5-16 tab, PO, l tablet 18:09: Bedtime, Denis 00 PRN NEEDED FOR MUSCLE SPASM, # 15 tab, 0 Refill(s), [facility]: [id number], 165.1, cm, 10/17/21 15:23:00 MEDICAL DOCTOR MD, Height, 107.301, kg, 10/17/21 15:23:00 MEDICAL DOCTOR MD, Weight tizanidine 2021-0 Yes 4 mg = 1 Mem oria 4 mg oral 5-16 tab, PO, l tablet 18:09: Bedtime, Philip 00 PRN NEEDED FOR MUSCLE SPASM, # 15 tab, 0 Refill(s), [id number], 165.1, cm, 10/17/21 15:23:00 MEDICAL DOCTOR MD, Height, 107.301, kg, 10/17/21 15:23:00 MEDICAL DOCTOR MD, Weight nitrofurant 2021- No 100mg Q.5D Take [...] 100mg Q.5D Take 1 Me thodi oin, 12-30-[address] macrocrysta 00:00: 04:59 (100 mg [...] hours or as directed by MD. traMADoL 28 50mg Q.91014203 Take 1 [facility] (ULTRAM) 50 12-28- [id number] tablet (50 st mg tablet 00:00: 04:59 3D mg total) Ho spita 00 :00 by mouth l as needed in the morning and 1 tablet (50 mg total) as needed at noon and 1 tablet (50 mg total) as needed in the evening for moderate pain. Do all this for up to 10 [place] [id number] 50mg Q.[id number] Take 1 [facility] (ULTRAM) 50 12-28-20 [id number] tablet (50 st mg tablet 00:00: 04:59 3D mg total) Ho spita 00 :00 by mouth l as needed in the morning and 1 tablet (50 mg total) as needed at noon and 1 tablet (50 mg total) as needed in the evening for moderate pain. Do all this for up to 10 [place] [address] 50mg Q.[id number] Take 1 [facility] (ULTRAM) 50 12-28 [id number] tablet (50 st mg tablet 00:00: 04:59 3D mg total) Ho spita 00 :00 by mouth l as needed in the morning and 1 tablet (50 mg total) as needed at noon and 1 tablet (50 mg total) as needed in the evening for moderate pain. Do all this for up to 10 days.acute pain. metoprolol 2022-0 Yes 25mg Q.5D Take 25 mg M ethodi tartrate 2-[address] (LOPRESSOR) 00:00: (two) Hospi ta 25 mg 00 times a l tablet day. metoprolol 2022-0 Yes 25mg Q.5D Take 25 mg M ethodi tartrate 2-[address] (LOPRESSOR) 00:00: (two) Hospi ta 25 mg 00 times a l tablet day. metoprolol 2022-0 Yes 25mg Q.5D Take 25 mg M ethodi tartrate 2-[address] (LOPRESSOR) 00:00: (two) Hospi ta 25 mg 00 times a l tablet day. Ondansetron 2022-0 Yes 4 mg = 1 Me moria 4 MG Oral 1-07 tab, PO, l Tablet 22:01: BID, X 5 Philip [Zofran] day, # 10 tab, 0 Refill(s), Pharmacy: [facility] #[id number], 165.1, cm, 10/17/21 15:23:00 MEDICAL DOCTOR MD, Height, 107.301, kg, 10/17/21 15:23:00 MEDICAL DOCTOR MD, Weight Ondansetron 2022-0 Yes 4 mg = 1 Me moria 4 MG Oral 1-07 tab, PO, l Tablet 22:01: BID, X 5 Denis [Zofran] day, # 10 tab, 0 Refill(s), Pharmacy: [facility] #[id number], 165.1, cm, 10/17/21 15:23:00 MEDICAL DOCTOR MD, Height, 107.301, kg, 10/17/21 15:23:00 MEDICAL DOCTOR MD, Weight Ondansetron 2022-0 Yes 4 mg = 1 Me moria 4 MG Oral 1-07 tab, PO, l Tablet 22:01: BID, X 5 Philip [Zofran] day, # 10 tab, 0 Refill(s), Pharmacy: [facility] #[id number], 165.1, cm, 10/17/21 15:23:00 MEDICAL DOCTOR MD, Height, 107.301, kg, 10/17/21 15:23:00 MEDICAL DOCTOR MD, Weight Ondansetron 2022-0 Yes 4 mg = 1 Me moria 4 MG Oral 1-07 tab, PO, l Tablet 22:01: BID, X 5 Philip [Zofran] day, # 10 tab, 0 Refill(s), Pharmacy: [facility] #[id number], 165.1, cm, 10/17/21 15:23:00 MEDICAL DOCTOR MD, Height, 107.301, kg, 10/17/21 15:23:00 MEDICAL DOCTOR MD, Weight Ondansetron 2022-0 Yes 4 mg = 1 Me moria 4 MG Oral 1-07 tab, PO, l Tablet 22:01: BID, X 5 Denis [Zofran] day, # 10 tab, 0 Refill(s), Pharmacy: [facility] #[id number], 165.1, cm, 10/17/21 15:23:00 MEDICAL DOCTOR MD, Height, 107.301, kg, 10/17/21 15:23:00 MEDICAL DOCTOR MD, Weight Ondansetron 2022-0 Yes 4 mg = 1 Me moria 4 MG Oral 1-07 tab, PO, l Tablet 22:01: BID, X 5 Denis [Zofran] day, # 10 tab, 0 Refill(s), Pharmacy: [facility] #[id number], 165.1, cm, 10/17/21 15:23:00 MEDICAL DOCTOR MD, Height, 107.301, kg, 10/17/21 15:23:00 MEDICAL DOCTOR MD, Weight Ondansetron 2022-0 Yes 4 mg = 1 Me moria 4 MG Oral 1-07 tab, PO, l Tablet 22:01: BID, X 5 Philip [Zofran] day, # 10 tab, 0 Refill(s), Pharmacy: [facility] #[id number], 165.1, cm, 10/17/21 15:23:00 MEDICAL DOCTOR MD, Height, 107.301, kg, 10/17/21 15:23:00 MEDICAL DOCTOR MD, Weight Ondansetron 2022-0 Yes 4 mg = 1 Me moria 4 MG Oral 1-07 tab, PO, l Tablet 22:01: BID, X 5 Philip [Zofran] day, # 10 tab, 0 Refill(s), Pharmacy: [facility] #[id number], 165.1, cm, 10/17/21 15:23:00 MEDICAL DOCTOR MD, Height, 107.301, kg, 10/17/21 15:23:00 MEDICAL DOCTOR MD, Weight Ondansetron Yes 4 mg = 1 Me moria 4 MG Oral 1-07 tab, PO, l Tablet 22:01: BID, X 5 Philip [Zofran] day, # 10 tab, 0 Refill(s), Pharmacy: [facility] #[id number], 165.1, cm, 10/17/21 15:23:00 MEDICAL DOCTOR MD, Height, 107.301, kg, 10/17/21 15:23:00 MEDICAL DOCTOR MD, Weight atorvastati 2020-10 Yes 10 mg = 1 M emoria n 10 mg 2-27 tab, PO, l oral tablet 21:45: Bedtime, # Philip 00 90 tab, 0 Refill(s), [id number], 165.1, cm, 10/17/21 15:23:00 MEDICAL DOCTOR MD, Height, 107.301, kg, 10/17/21 15:23:00 MEDICAL DOCTOR MD, Weight atorvastati 2020-10 Yes 10 mg = 1 M emoria n 10 mg 2-27 tab, PO, l oral tablet 21:45: Bedtime, # Denis 00 90 tab, 0 Refill(s), [id number], 165.1, cm, 10/17/21 15:23:00 MEDICAL DOCTOR MD, Height, 107.301, kg, 10/17/21 15:23:00 MEDICAL DOCTOR MD, Weight atorvastati 2020-10 Yes 10 mg = 1 M emoria n 10 mg 2-27 tab, PO, l oral tablet 21:45: Bedtime, # Philip 00 90 tab, 0 Refill(s), [facility][id number], 165.1, cm, 10/17/21 15:23:00 MEDICAL DOCTOR MD, Height, 107.301, kg, 10/17/21 15:23:00 MEDICAL DOCTOR MD, Weight atorvastati 2020-10 Yes 10 mg = 1 M emoria n 10 mg 2-27 tab, PO, l oral tablet 21:45: Bedtime, # Denis 00 90 tab, 0 Refill(s), Pharmacy: [facility] STORE #[id number], 165.1, cm, 10/17/21 15:23:00 MEDICAL DOCTOR MD, Height, 107.301, kg, 10/17/21 15:23:00 MEDICAL DOCTOR MD, Weight atorvas2020-10 Yes 10 mg = 1 M emoria n 10 mg 2-27 tab, PO, l oral tablet 21:45: Bedtime, # Philip 00 90 tab, 0 Refill(s), Pharmacy: [facility] STORE #[id number], 165.1, cm, 10/17/21 15:23:00 MEDICAL DOCTOR MD, Height, 107.301, kg, 10/17/21 15:23:00 MEDICAL DOCTOR MD, Weight atorvasta2020-10 Yes 10 mg = 1 M emoria n 10 mg 2-27 tab, PO, l oral tablet 21:45: Bedtime, # Denis 00 90 tab, 0 Refill(s), Pharmacy: [facility] STORE #[id number], 165.1, cm, 10/17/21 15:23:00 MEDICAL DOCTOR MD, Height, 107.301, kg, 10/17/21 15:23:00 MEDICAL DOCTOR MD, Weight atorvasta2020-10 Yes 10 mg = 1 M emoria n 10 mg 2-27 tab, PO, l oral tablet 21:45: Bedtime, # Philip 00 90 tab, 0 Refill(s), Pharmacy: [facility] STORE #[id number], 165.1, cm, 10/17/21 15:23:00 MEDICAL DOCTOR MD, Height, 107.301, kg, 10/17/21 15:23:00 MEDICAL DOCTOR MD, Weight atorvastati 2020-10 Yes 10 mg = 1 M emoria n 10 mg 2-27 tab, PO, l oral tablet 21:45: Bedtime, # Philip 00 90 tab, 0 Refill(s), [id number], 165.1, cm, 10/17/21 15:23:00 MEDICAL DOCTOR MD, Height, 107.301, kg, 10/17/21 15:23:00 MEDICAL DOCTOR MD, Weight atorvastati 2020-10 Yes 10 mg = 1 M emoria n 10 mg 2-27 tab, PO, l oral tablet 21:45: Bedtime, # Denis 00 90 tab, 0 Refill(s), [id number], 165.1, cm, 10/17/21 15:23:00 MEDICAL DOCTOR MD, Height, 107.301, kg, 10/17/21 15:23:00 MEDICAL DOCTOR MD, Weight tizanidine 2020-10 Yes 4 mg = 1 Mem oria 4 mg oral 2-27 tab, PO, l tablet 21:40: Bedtime, Philip 00 PRN for muscle spasm, # 30 tab, 0 Refill(s), [id number], 165.1, cm, 10/17/21 15:23:00 MEDICAL DOCTOR MD, Height, 107.301, kg, 10/17/21 15:23:00 MEDICAL DOCTOR MD, Weight Acetaminoph 2020-10 Yes 1 tab, PO, Memoria en 325 MG / 2-27 Q12H, PRN l tramadol 21:40: for pain, Herm connie hydrochlori 00 X 15 day, de 37.5 MG # 30 tab, Oral Tablet 0 [Ultracet] Refill(s), [id number], 165.1, cm, 10/17/21 15:23:00 MEDICAL DOCTOR MD, Height, 107.301, kg, 10/17/21 15:23:00 MEDICAL DOCTOR MD, Weight tizanidine 2020-10 Yes 4 mg = 1 Mem oria 4 mg oral 2-27 tab, PO, l tablet 21:40: Bedtime, Denis 00 PRN for muscle spasm, # 30 tab, 0 Refill(s), Pharmacy: [facility] #[id number], 165.1, cm, 10/17/21 15:23:00 MEDICAL DOCTOR MD, Height, 107.301, kg, 10/17/21 15:23:00 MEDICAL DOCTOR MD, Weight Acetaminoph 2020-10 Yes 1 tab, PO, Memoria en 325 MG / 2-27 Q12H, PRN l tramadol 21:40: for pain, Herm connie hydrochlori 00 X 15 day, de 37.5 MG # 30 tab, Oral Tablet 0 [Ultracet] Refill(s), [id number], 165.1, cm, 10/17/21 15:23:00 MEDICAL DOCTOR MD, Height, 107.301, kg, 10/17/21 15:23:00 MEDICAL DOCTOR MD, Weight tizanidine 2020-10 Yes 4 mg = 1 Mem oria 4 mg oral 2-27 tab, PO, l tablet 21:40: Bedtime, Philip 00 PRN for muscle spasm, # 30 tab, 0 Refill(s), [id number], 165.1, cm, 10/17/21 15:23:00 MEDICAL DOCTOR MD, Height, 107.301, kg, 10/17/21 15:23:00 MEDICAL DOCTOR MD, Weight Acetaminoph 2020-10 Yes 1 tab, PO, Memoria en 325 MG / 2-27 Q12H, PRN l tramadol 21:40: for pain, Herm connie hydrochlori X 15 day, de 37.5 MG # 30 tab, Oral Tablet 0 [Ultracet] Refill(s), [id number], 165.1, cm, 10/17/21 15:23:00 MEDICAL DOCTOR MD, Height, 107.301, kg, 10/17/21 15:23:00 MEDICAL DOCTOR MD, Weight tizanidine 2020-10 Yes 4 mg = 1 Mem oria 4 mg oral 2-27 tab, PO, l tablet 21:40: Bedtime, Philip 00 PRN for muscle spasm, # 30 tab, 0 Refill(s), [id number], 165.1, cm, 10/17/21 15:23:00 MEDICAL DOCTOR MD, Height, 107.301, kg, 10/17/21 15:23:00 MEDICAL DOCTOR MD, Weight Acetaminoph 2020-10 Yes 1 tab, PO, Memoria en 325 MG / 2-27 Q12H, PRN l tramadol 21:40: for pain, Herm connie hydrochlori 00 X 15 day, de 37.5 MG # 30 tab, Oral Tablet 0 [Ultracet] Refill(s), [id number], 165.1, cm, 10/17/21 15:23:00 MEDICAL DOCTOR MD, Height, 107.301, kg, 10/17/21 15:23:00 MEDICAL DOCTOR MD, Weight tizanidine 2020-10 Yes 4 mg = 1 Mem oria 4 mg oral 2-27 tab, PO, l tablet 21:40: Bedtime, Denis 00 PRN for muscle spasm, # 30 tab, 0 Refill(s), Pharmacy: [facility] ST[facility] #[id number], 165.1, cm, 10/17/21 15:23:00 MEDICAL DOCTOR MD, Height, 107.301, kg, 10/17/21 15:23:00 MEDICAL DOCTOR MD, Weight Acetaminoph 2020-10 Yes 1 tab, PO, Memoria en 325 MG / 2-27 Q12H, PRN l tramadol 21:40: for pain, Herm connie hydrochlori 00 X 15 day, de 37.5 MG # 30 tab, Oral Tablet 0 [Ultracet] Refill(s), Pharmacy: [facility] #[id number], 165.1, cm, 10/17/21 15:23:00 MEDICAL DOCTOR MD, Height, 107.301, kg, 10/17/21 15:23:00 MEDICAL DOCTOR MD, Weight tizanidine 2020-10 Yes 4 mg = 1 Mem oria 4 mg oral 2-27 tab, PO, l tablet 21:40: Bedtime, Philip 00 PRN for muscle spasm, # 30 tab, 0 Refill(s), Pharmacy: [facility] #[id number], 165.1, cm, 10/17/21 15:23:00 MEDICAL DOCTOR MD, Height, 107.301, kg, 10/17/21 15:23:00 MEDICAL DOCTOR MD, Weight Acetaminoph 2020-10 Yes 1 tab, PO, Memoria en 325 MG / 2-27 Q12H, PRN l tramadol 21:40: for pain, Herm connie hydrochlori 00 X 15 day, de 37.5 MG # 30 tab, Oral Tablet 0 [Ultracet] Refill(s), Pharmacy: [facility] #[id number], 165.1, cm, 10/17/21 15:23:00 MEDICAL DOCTOR MD, Height, 107.301, kg, 10/17/21 15:23:00 MEDICAL DOCTOR MD, Weight tizanidine 2020-10 Yes 4 mg = 1 Mem oria 4 mg oral 2-27 tab, PO, l tablet 21:40: Bedtime, Philip 00 PRN for muscle spasm, # 30 tab, 0 Refill(s), Pharmacy: [facility] #[id number], 165.1, cm, 10/17/21 15:23:00 MEDICAL DOCTOR MD, Height, 107.301, kg, 10/17/21 15:23:00 MEDICAL DOCTOR MD, Weight Acetaminoph 2020-10 Yes 1 tab, PO, Memoria en 325 MG / 2-27 Q12H, PRN l tramadol 21:40: for pain, Herm connie hydrochlori 00 X 15 day, de 37.5 MG # 30 tab, Oral Tablet 0 [Ultracet] Refill(s), [id number], 165.1, cm, 10/17/21 15:23:00 MEDICAL DOCTOR MD, Height, 107.301, kg, 10/17/21 15:23:00 MEDICAL DOCTOR MD, Weight tizanidine 2020-10 Yes 4 mg = 1 Mem oria 4 mg oral 2-27 tab, PO, l tablet 21:40: Bedtime, Philip 00 PRN for muscle spasm, # 30 tab, 0 Refill(s), Pharmacy: [facility] #[id number], 165.1, cm, 10/17/21 15:23:00 MEDICAL DOCTOR MD, Height, 107.301, kg, 10/17/21 15:23:00 MEDICAL DOCTOR MD, Weight Acetaminoph 2020-10 Yes 1 tab, PO, Memoria en 325 MG / 2-27 Q12H, PRN l tramadol 21:40: for pain, Herm connie hydrochlori 00 X 15 day, de 37.5 MG # 30 tab, Oral Tablet 0 [Ultracet] Refill(s), Pharmacy: [facility] #[id number], 165.1, cm, 10/17/21 15:23:00 MEDICAL DOCTOR MD, Height, 107.301, kg, 10/17/21 15:23:00 MEDICAL DOCTOR MD, Weight tizanidine 2020-10 Yes 4 mg = 1 Mem oria 4 mg oral 2-27 tab, PO, l tablet 21:40: Bedtime, Philip 00 PRN for muscle spasm, # 30 tab, 0 Refill(s), Pharmacy: [facility] #[id number], 165.1, cm, 10/17/21 15:23:00 MEDICAL DOCTOR MD, Height, 107.301, kg, 10/17/21 15:23:00 MEDICAL DOCTOR MD, Weight Acetaminoph 2020-10 Yes 1 tab, PO, Memoria en 325 MG / 2-27 Q12H, PRN l tramadol 21:40: for pain, Karoline sherwoodi 00 X 15 day, de 37.5 MG # 30 tab, Oral Tablet 0 [Ultracet] Refill(s), Pharmacy: [facility] #[id number], 165.1, cm, 10/17/21 15:23:00 MEDICAL DOCTOR MD, Height, 107.301, kg, 10/17/21 15:23:00 MEDICAL DOCTOR MD, Weight sevelamer 2020-10 Yes 1,600 mg = [...] Ointment 00 22 gm, 0 Refill(s), [id number], 165.1, cm, 09/09/21 14:08:00 MEDICAL DOCTOR MD, Height, 136.42, kg, 09/09/21 14:08:00 MEDICAL DOCTOR MD, Weight Mupirocin 2020-10 Yes 1 appl, Memor ia 0.02 MG/MG 1-22 TOP, TID, l Topical 23:21: X 5 day, # Herm connie Ointment 00 22 gm, 0 Refill(s), Pharmacy: [facility] #[id number], 165.1, cm, 09/09/21 14:08:00 MEDICAL DOCTOR MD, Height, 136.42, kg, 09/09/21 14:08:00 MEDICAL DOCTOR MD, Weight Mupirocin 2020-10 Yes 1 appl, Memor ia 0.02 MG/MG 1-22 TOP, TID, l Topical 23:21: X 5 day, # Herm connie Ointment 00 22 gm, 0 Refill(s), Pharmacy: [facility] #[id number], 165.1, cm, 09/09/21 14:08:00 MEDICAL DOCTOR MD, Height, 136.42, kg, 09/09/21 14:08:00 MEDICAL DOCTOR MD, Weight Mupirocin 2020-10 Yes 1 appl, Memor ia 0.02 MG/MG 1-22 TOP, TID, l Topical 23:21: X 5 day, # Herm connie Ointment 00 22 gm, 0 Refill(s), Pharmacy: [facility] ST[facility] #[id number], 165.1, cm, 09/09/21 14:08:00 MEDICAL DOCTOR MD, Height, 136.42, kg, 09/09/21 14:08:00 MEDICAL DOCTOR MD, Weight Mupirocin 2020- Yes 1 appl, Memor ia 0.02 MG/MG 1-22 TOP, TID, l Topical 23:21: X 5 day, # Herm connie Ointment 00 22 gm, 0 Refill(s), [facility][id number], 165.1, cm, 09/09/21 14:08:00 MEDICAL DOCTOR MD, Height, 136.42, kg, 09/09/21 14:08:00 MEDICAL DOCTOR MD, Weight Mupirocin 2020- Yes 1 appl, Memor ia 0.02 MG/MG 1-22 TOP, TID, l Topical 23:21: X 5 day, # Herm connie Ointment 00 22 gm, 0 Refill(s), [facility][id number], 165.1, cm, 09/09/21 14:08:00 MEDICAL DOCTOR MD, Height, 136.42, kg, 09/09/21 14:08:00 MEDICAL DOCTOR MD, Weight Mupirocin 2020-10 Yes 1 appl, Memor ia 0.02 MG/MG 1-22 TOP, TID, l Topical 23:21: X 5 day, # Herm connie Ointment 00 22 gm, 0 Refill(s), [id number], 165.1, cm, 09/09/21 14:08:00 MEDICAL DOCTOR MD, Height, 136.42, kg, 09/09/21 14:08:00 MEDICAL DOCTOR MD, Weight Mupirocin 2020- Yes 1 appl, Memor ia 0.02 MG/MG 1-22 TOP, TID, l Topical 23:21: X 5 day, # Herm connie Ointment 00 22 gm, 0 Refill(s), [facility][id number], 165.1, cm, 09/09/21 14:08:00 MEDICAL DOCTOR MD, Height, 136.42, kg, 09/09/21 14:08:00 MEDICAL DOCTOR MD, Weight Mupirocin 2020- Yes 1 appl, Memor ia 0.02 MG/MG 1-22 TOP, TID, l Topical 23:21: X 5 day, # Herm connie Ointment 00 22 gm, 0 Refill(s), Pharmacy: [facility] #[id number], 165.1, cm, 09/09/21 14:08:00 MEDICAL DOCTOR MD, Height, 136.42, kg, 09/09/21 14:08:00 MEDICAL DOCTOR MD, Weight bumetanide 2020-10 Yes 2 mg = 1 Mem oria 2 mg oral 1-19 tab, PO, l tablet 21:11: Daily, # Philip 00 30 tab, 0 Refill(s) bumetanide 2020-10 [...] tab, PO, l tablet 21:11: Daily, # Philip 00 30 tab, 0 Refill(s) bumetanide 2020-10 [...] tab, PO, l tablet 21:11: Daily, # Philip 00 30 tab, 0 Refill(s) bumetanide 2020-10 Yes 2 mg = 1 Mem oria 2 mg oral 1-19 tab, PO, l tablet 21:11: Daily, # Philip 00 30 tab, 0 Refill(s) allopurinol 2020-10 [...] connie 00 Refill(s) midodrine 2020-10 Yes 10mg Q.[id number] Take 10 mg [facility] (PROAMATINE 1-[id number] [facility] ) 10 MG 00:00[facility] tablet 00 times a l day. midodrine 2020-10 Yes 10mg Q.[id number] Take 10 mg [facility] (PROAMATINE 1-[id number] [facility] ) 10 MG 00:00: [facility] tablet 00 times a l day. midodrine 2020-10 Yes 10mg Q.[id number] Take 10 mg [facility] (PROAMATINE 1-13 [id number] [facility] ) 10 MG 00:00: [facility] tablet 00 times a l day. BUMETanide 2020-10 Yes 2mg QD Take 2 mg [facility] (BUMEX) 2 1-[address] MG tablet 00:00: every Hospita 00 morning. l digOXIN 2020-10 Yes 125ug Q.[id number] Take 125 [facility] (LANOXIN) 1-[id number] 125 mcg 00:00: [facility] (0.125 mg) 00 (three) l tablet times a week. On dialysis , , Sunday BUMETanide 2020-10 Yes 2mg QD Take 2 mg [facility] (BUMEX) 2 -[address] MG tablet 00:00: every Hospita 00 morning. l digOXIN 2020-10 Yes 125ug Q.[id number] Take 125 [facility] (LANOXIN) 1- [id number] mcg by st 125 mcg 00:00: [facility] (0.125 mg) 00 (three) l tablet times a week. On dialysis , , Sunday BUMETanide 2020-10 Yes 2mg QD Take 2 mg [facility] (BUMEX) 2 - by mouth [facility] MG tablet 00:00: every Hospita 00 morning. l digOXIN 2020-10 Yes 125ug Q.[id number] Take 125 [facility] (LANOXIN) 1- [id number] mcg by st 125 mcg 00:00: 3W [...] tablet 00 :00 l ipratropium 2020-10- No [id number] .5mg Q.25D Take 2.5 [facility] (ATROVENT) 005 12-19 mL (0.[address] 0.02 % 00:00: 00:00 total) by [facility] ta nebulizer 00 :00 nebulizati l solution on 4 (four) times a day. ipratropium 2020-2021- No [id number] .5mg Q.25D Take 2.5 [facility] (ATROVENT) 0-05 02-28 mL (0.[address] 0.02 % 00:00: 00:00 total) by [facility] ta nebulizer 00 :00 nebulizati l solution on 4 (four) times a day. ipratropium 2020-10- No [id number] .5mg Q.25D Take 2.5 [facility] (ATROVENT) 0-05 [...] twice a l tablet 13:55: day, 0 Philip 00 Refill(s) QUEtiapine 2021-0 Yes 1 tablet, Me moria 50 mg oral 3-30 once a l tablet 13:55: day, 0 Denis 00 Refill(s) torsemide 2021-0 Yes 1 tablet, Mem oria 20 mg oral 3-30 twice a l tablet 13:55: day, 0 Philip 00 Refill(s) QUEtiapine 2021-0 Yes 1 tablet, Me moria 50 mg oral 3-30 once a l tablet 13:55: day, 0 Denis 00 Refill(s) torsemide 2021-0 Yes 1 tablet, Mem oria 20 mg oral 3-30 twice a l tablet 13:55: day, 0 Philip 00 Refill(s) QUEtiapine 2021-0 Yes 1 tablet, Me moria 50 mg oral 3-30 once a l tablet 13:55: day, 0 Denis 00 Refill(s) torsemide 2021-0 Yes 1 tablet, Mem oria 20 mg oral 3-30 twice a l tablet 13:55: day, 0 Denis 00 Refill(s) QUEtiapine 2021-0 Yes 1 tablet, Me moria 50 mg oral 3-30 once a l tablet 13:55: day, 0 Philip 00 Refill(s) torsemide 2021-0 Yes 1 tablet, Mem oria 20 mg oral 3-30 twice a l tablet 13:55: day, 0 Denis 00 Refill(s) QUEtiapine 2021-0 Yes 1 tablet, Me moria 50 mg oral 3-30 once a l tablet 13:55: day, 0 Denis 00 Refill(s) torsemide 2021-0 Yes 1 tablet, Mem oria 20 mg oral 3-30 twice a l tablet 13:55: day, 0 Philip 00 Refill(s) QUEtiapine 2021-0 Yes 1 tablet, [...] twice a l tablet 13:55: day, 0 Philip 00 Refill(s) potassium 2021-0 Yes 1 tablet, [...] a l mEq oral 13:54: day, 0 Philip tablet, 00 Refill(s) extended release (KCL) potassium 2020-0 Yes 1 tablet, Mem oria chloride 20 3-30 once a l mEq oral 13:54: day, 0 Philip tablet, 00 Refill(s) extended release (KCL) potassium 2020-0 Yes 1 tablet, Mem oria chloride 20 3-30 once a l mEq oral 13:54: day, 0 Denis tablet, 00 Refill(s) extended release (KCL) potassium 2020-0 Yes 1 tablet, Mem oria chloride 20 3-30 once a l mEq oral 13:54: day, 0 Philip tablet, 00 Refill(s) extended release (KCL) potassium 2020-0 Yes 1 tablet, Mem oria chloride 20 3-30 once a l mEq oral 13:54: day, 0 Denis tablet, 00 Refill(s) extended release (KCL) potassium 2020-0 Yes 1 tablet, Mem oria chloride 20 3-30 once a l mEq oral 13:54: day, 0 Philip tablet, 00 Refill(s) extended release (KCL) allopurinol [...] once a l delayed 13:53: day, 0 Philip release 00 Refill(s) capsule apixaban 5 0 Yes 1 tablet, Me moria MG Oral 3-30 twice a l Tablet 13:53: day, 0 Philip [Eliquis] 00 Refill(s) gabapentin 0 Yes 1 capsule, M emoria 300 MG Oral 3-30 twice a l Capsule 13:53: day, 0 Philip 00 Refill(s) metoprolol 0 Yes 1 tablet, Me moria tartrate 50 3-30 Twice a l mg oral 13:53: day, 0 Denis tablet 00 Refill(s) midodrine 5 0 Yes 1 tablet, M emoria mg oral 3-30 twice a l tablet 13:53: day, 0 Philip 00 Refill(s) allopurinol Yes 1/2 Memori a [...] twice a l Tablet 13:53: day, 0 Philip [Eliquis] 00 Refill(s) gabapentin 0 Yes 1 capsule, M emoria 300 MG Oral 3-30 twice a l Capsule 13:53: day, 0 Philip 00 Refill(s) metoprolol 0 Yes 1 tablet, Me moria tartrate 50 3-30 Twice a l mg oral 13:53: day, 0 Denis tablet 00 Refill(s) midodrine 5 0 Yes 1 tablet, M emoria mg oral 3-30 twice a l tablet 13:53: day, 0 Denis 00 Refill(s) allopurinol 0 Yes 1/2 Memori a 300 mg oral 3-30 tablet, l tablet 13:53: once a Philip 00 day, 0 Refill(s) carvedilol 0 Yes [...] once a l delayed 13:53: day, 0 Philip release 00 Refill(s) capsule apixaban 5 Yes 1 tablet, Me moria MG Oral 3-30 twice a l Tablet 13:53: day, 0 Philip [Eliquis] 00 Refill(s) gabapentin 0 Yes 1 capsule, M emoria 300 MG Oral 3-30 twice a l Capsule 13:53: day, 0 Philip 00 Refill(s) metoprolol Yes 1 tablet, Me moria tartrate 50 3-30 Twice a l mg oral 13:53: day, 0 Denis tablet 00 Refill(s) midodrine 5 Yes 1 tablet, M emoria mg oral 3-30 twice a l tablet 13:53: day, 0 Philip 00 Refill(s) allopurinol Yes 1/2 Memori a 300 mg oral 3-30 tablet, l tablet 13:53: once a Philip 00 day, 0 Refill(s) carvedilol Yes 1 [...] once a l delayed 13:53: day, 0 Philip release 00 Refill(s) capsule apixaban 5 Yes 1 tablet, Me moria MG Oral 3-30 twice a l Tablet 13:53: day, 0 Philip [Eliquis] 00 Refill(s) gabapentin 2020-0 Yes 1 [...] 3-30 tablet, l tablet 13:53: once a Dneis 00 day, 0 Refill(s) carvedilol 0 Yes [...] once a l delayed 13:53: day, 0 Philip release 00 Refill(s) capsule apixaban 5 2020-0 Yes 1 tablet, Me moria MG Oral 3-30 twice a l Tablet 13:53: day, 0 Denis [Eliquis] 00 Refill(s) gabapentin 2020-0 Yes 1 capsule, M emoria 300 MG Oral 3-30 twice a l Capsule 13:53: day, 0 Philip 00 Refill(s) metoprolol 2020-0 Yes 1 tablet, Me moria tartrate 50 3-30 Twice a l mg oral 13:53: day, 0 Philip tablet 00 Refill(s) midodrine 5 0 Yes 1 tablet, M emoria mg oral 3-30 twice a l tablet 13:53: day, 0 Philip 00 Refill(s) allopurinol 2020-0 Yes 1/2 Memori [...] a l mg oral 13:53: day, 0 Philip tablet 00 Refill(s) midodrine 5 Yes 1 tablet, M emoria mg oral 3-30 twice a l tablet 13:53: day, 0 Denis 00 Refill(s) allopurinol Yes 1/2 Memori a 300 mg oral 3-30 tablet, l tablet 13:53: once a Philip 00 day, 0 Refill(s) carvedilol Yes 1 [...] once a l delayed 13:53: day, 0 Philip release 00 Refill(s) capsule apixaban 5 0 Yes 1 tablet, Me moria MG Oral 3-30 twice a l Tablet 13:53: day, 0 Denis [Eliquis] 00 Refill(s) gabapentin 2020-0 Yes 1 capsule, M emoria 300 MG Oral 3-30 twice a l Capsule 13:53: day, 0 Philip 00 Refill(s) metoprolol 2021-0 Yes 1 tablet, Me moria tartrate 50 3-30 Twice a l mg oral 13:53: day, 0 Philip tablet 00 Refill(s) midodrine 5 0 Yes 1 tablet, M emoria mg oral 3-30 twice a l tablet 13:53: day, 0 Philip 00 Refill(s) allopurinol Yes 1/2 Memori a 300 mg oral 3-30 tablet, l tablet 13:53: once a Philip 00 day, 0 Refill(s) carvedilol Yes 1 tablet, Me moria 3.125 mg 3-30 twice a l oral tablet 13:53: day, 0 Herm connie 00 Refill(s) Digoxin Yes 1 tablet, Memor ia 0.125 MG 3-30 once a l Oral Tablet 13:53: day, 0 Herm connie 00 Refill(s) DULoxetine Yes 1 capsule, M emoria 60 mg oral 3-30 once a l delayed 13:53: day, 0 Philip release 00 Refill(s) capsule apixaban 5 Yes [...] 3-30 tablet, l tablet 13:53: once a Philip 00 day, 0 Refill(s) carvedilol Yes 1 [...] once a l delayed 13:53: day, 0 Philip release 00 Refill(s) capsule apixaban 5 Yes 1 tablet, Me moria MG Oral 3-30 twice a l Tablet 13:53: day, 0 Philip [Eliquis] 00 Refill(s) gabapentin Yes 1 capsule, M emoria 300 MG Oral 3-30 twice a l Capsule 13:53: day, 0 Philip 00 Refill(s) metoprolol Yes 1 tablet, Me moria tartrate 50 3-30 Twice a l mg oral 13:53: day, 0 Philip tablet 00 Refill(s) midodrine 5 Yes 1 tablet, M emoria mg oral 3-30 twice a l tablet 13:53: day, 0 Philip 00 Refill(s) DULoxetine 2019-10 Yes 60 mg [...] DAILY, # 66 gm, 1 Refill(s), [id number], 170.18, cm, 12/16/19 14:42:00 MEDICAL DOCTOR MD, Height, 164.318, kg, 12/16/19 14:42:00 MEDICAL DOCTOR MD, Weight Mupirocin 2020- Yes See Memoria 0.02 MG/MG 0-13 Instructio l Topical 15:44: ns, APPLY Karen nn Ointment 00 EXTERNALLY TO THE AFFECTED AREA TWICE DAILY, # 66 gm, 1 Refill(s), [id number], 170.18, cm, 12/16/19 14:42:00 MEDICAL DOCTOR MD, Height, 164.318, kg, 12/16/19 14:42:00 MEDICAL DOCTOR MD, Weight Mupirocin 2020- Yes See Memoria 0.02 MG/MG 0-13 Instructio l Topical 15:44: ns, APPLY Karen nn Ointment 00 EXTERNALLY TO THE AFFECTED AREA TWICE DAILY, # 66 gm, 1 Refill(s), Pharmacy: [facility] #[id number], 170.18, cm, 12/16/19 14:42:00 MEDICAL DOCTOR MD, Height, 164.318, kg, 12/16/19 14:42:00 MEDICAL DOCTOR MD, Weight Mupirocin 2020- Yes See Memoria 0.02 MG/MG 0-13 Instructio l Topical 15:44: ns, APPLY Karen nn Ointment 00 EXTERNALLY TO THE AFFECTED AREA TWICE DAILY, # 66 gm, 1 Refill(s), [facility][id number], 170.18, cm, 12/16/19 14:42:00 MEDICAL DOCTOR MD, Height, 164.318, kg, 12/16/19 14:42:00 MEDICAL DOCTOR MD, Weight Mupirocin 2020- Yes See Memoria 0.02 MG/MG 0-13 Instructio l Topical 15:44: ns, APPLY Karen nn Ointment 00 EXTERNALLY TO THE AFFECTED AREA TWICE DAILY, # 66 gm, 1 Refill(s), Pharmacy: [facility] #[id number], 170.18, cm, 12/16/19 14:42:00 MEDICAL DOCTOR MD, Height, 164.318, kg, 12/16/19 14:42:00 MEDICAL DOCTOR MD, Weight Mupirocin 2019- Yes See Memoria 0.02 MG/MG 0-13 Instructio l Topical 15:44: ns, APPLY Karen nn Ointment 00 EXTERNALLY TO THE AFFECTED AREA TWICE DAILY, # 66 gm, 1 Refill(s), Pharmacy: [facility] #[id number], 170.18, cm, 12/16/19 14:42:00 MEDICAL DOCTOR MD, Height, 164.318, kg, 12/16/19 14:42:00 MEDICAL DOCTOR MD, Weight Mupirocin 2019-10 Yes See Memoria 0.02 MG/MG 0-13 Instructio l Topical 15:44: ns, APPLY Karen nn Ointment 00 EXTERNALLY TO THE AFFECTED AREA TWICE DAILY, # 66 gm, 1 Refill(s), Pharmacy: [facility] #[id number], 170.18, cm, 12/16/19 14:42:00 MEDICAL DOCTOR MD, Height, 164.318, kg, 12/16/19 14:42:00 MEDICAL DOCTOR MD, Weight Mupirocin 2019-10 Yes See Memoria 0.02 MG/MG 0-13 Instructio l Topical 15:44: ns, APPLY Karen nn Ointment 00 EXTERNALLY TO THE AFFECTED AREA TWICE DAILY, # 66 gm, 1 Refill(s), Pharmacy: [facility] #[id number], 170.18, cm, 12/16/19 14:42:00 MEDICAL DOCTOR MD, Height, 164.318, kg, 12/16/19 14:42:00 MEDICAL DOCTOR MD, Weight Mupirocin 2019-10 Yes See Memoria 0.02 MG/MG 0-13 Instructio l Topical 15:44: ns, APPLY Karen nn Ointment 00 EXTERNALLY TO THE AFFECTED AREA TWICE DAILY, # 66 gm, 1 Refill(s), Pharmacy: [facility] #[id number], 170.18, cm, 12/16/19 14:42:00 MEDICAL DOCTOR MD, Height, 164.318, kg, 12/16/19 14:42:00 MEDICAL DOCTOR MD, Weight Nitrofurant 2019-0 Yes 100 mg = 1 Memoria oin 100 MG 8-09 cap, PO, l Oral 17:57: BID, X 10 Philip Capsule 00 day, # 20 [Macrobid] cap, 0 Refill(s), [id number], 170.18, cm, 12/16/19 14:42:00 MEDICAL DOCTOR MD, Height, 164.318, kg, 12/16/19 14:42:00 MEDICAL DOCTOR MD, Weight Nitrofurant 2020-0 Yes 100 mg = 1 Memoria oin 100 MG 8-09 cap, PO, l Oral 17:57: BID, X 10 Denis Capsule 00 day, # 20 [Macrobid] cap, 0 Refill(s), [id number], 170.18, cm, 12/16/19 14:42:00 MEDICAL DOCTOR MD, Height, 164.318, kg, 12/16/19 14:42:00 MEDICAL DOCTOR MD, Weight Nitrofurant 2020-0 Yes 100 mg = 1 Memoria oin 100 MG 8-09 cap, PO, l Oral 17:57: BID, X 10 Denis Capsule 00 day, # 20 [Macrobid] cap, 0 Refill(s), [facility][id number], 170.18, cm, 12/16/19 14:42:00 MEDICAL DOCTOR MD, Height, 164.318, kg, 12/16/19 14:42:00 MEDICAL DOCTOR MD, Weight Nitrofurant 2020-0 Yes 100 mg = 1 Memoria oin 100 MG 8-09 cap, PO, l Oral 17:57: BID, X 10 Denis Capsule 00 day, # 20 [Macrobid] cap, 0 Refill(s), [id number], 170.18, cm, 12/16/19 14:42:00 MEDICAL DOCTOR MD, Height, 164.318, kg, 12/16/19 14:42:00 MEDICAL DOCTOR MD, Weight Nitrofurant 2020-0 Yes 100 mg = 1 Memoria oin 100 MG 8-09 cap, PO, l Oral 17:57: BID, X 10 Philip Capsule 00 day, # 20 [Macrobid] cap, 0 Refill(s), [id number], 170.18, cm, 12/16/19 14:42:00 MEDICAL DOCTOR MD, Height, 164.318, kg, 12/16/19 14:42:00 MEDICAL DOCTOR MD, Weight Nitrofurant 2020-0 Yes 100 mg = 1 Memoria oin 100 MG 8-09 cap, PO, l Oral 17:57: BID, X 10 Philip Capsule 00 day, # 20 [Macrobid] cap, 0 Refill(s), [id number], 170.18, cm, 12/16/19 14:42:00 MEDICAL DOCTOR MD, Height, 164.318, kg, 12/16/19 14:42:00 MEDICAL DOCTOR MD, Weight Nitrofurant 2020-0 Yes 100 mg = 1 Memoria oin 100 MG 8-09 cap, PO, l Oral 17:57: BID, X 10 Philip Capsule 00 day, # 20 [Macrobid] cap, 0 Refill(s), Pharmacy: [facility] #[id number], 170.18, cm, 12/16/19 14:42:00 MEDICAL DOCTOR MD, Height, 164.318, kg, 12/16/19 14:42:00 MEDICAL DOCTOR MD, Weight Nitrofurant 2020-0 Yes 100 mg = 1 Memoria oin 100 MG 8-09 cap, PO, l Oral 17:57: BID, X 10 Philip Capsule 00 day, # 20 [Macrobid] cap, 0 Refill(s), Pharmacy: [facility] ST[facility] #[id number], 170.18, cm, 12/16/19 14:42:00 MEDICAL DOCTOR MD, Height, 164.318, kg, 12/16/19 14:42:00 MEDICAL DOCTOR MD, Weight Nitrofurant 2020-0 Yes 100 mg = 1 Memoria oin 100 MG 8-09 cap, PO, l Oral 17:57: BID, X 10 Philip Capsule 00 day, # 20 [Macrobid] cap, 0 Refill(s), Pharmacy: [facility] ST[facility] #[id number], 170.18, cm, 12/16/19 14:42:00 MEDICAL DOCTOR MD, Height, 164.318, kg, 12/16/19 14:42:00 MEDICAL DOCTOR MD, Weight lisinopril 2020-0 Yes 2.5 mg = [...] tab, PO, l tablet 23:26: Daily, # Philip 00 30 tab, 2 Refill(s), called to pharmacy lisinopril 2020-0 Yes 2.5 mg = 1 M emoria 2.5 mg oral 6-04 tab, PO, l tablet 23:26: Daily, # Philip 00 30 tab, 2 Refill(s), called to pharmacy calcitriol 2020-0 Yes = 1 cap, Mem oria 0.25 mcg 5-20 PO, Daily, l oral 12:18: # 90 cap, Denis capsule 00 1 Refill(s), Pharmacy: [facility] #[id number] calcitriol 2020-0 Yes = 1 cap, Mem oria 0.25 mcg 5-20 PO, Daily, l oral 12:18: # 90 cap, Denis capsule 00 1 Refill(s), [id number] calcitriol 2020-0 Yes = 1 cap, Mem oria 0.25 mcg 5-20 PO, Daily, l oral 12:18: # 90 cap, Denis capsule 00 1 Refill(s), [id number] calcitriol 2020-0 Yes = 1 cap, Mem oria 0.25 mcg 5-20 PO, Daily, l oral 12:18: # 90 cap, Denis capsule 00 1 Refill(s), [id number] calcitriol 2020-0 Yes = 1 cap, Mem oria 0.25 mcg 5-20 PO, Daily, l oral 12:18: # 90 cap, Philip capsule 00 1 Refill(s), [id number] calcitriol 2020-0 Yes = 1 cap, Mem oria 0.25 mcg 5-20 PO, Daily, l oral 12:18: # 90 cap, Philip capsule 00 1 Refill(s), [id number] calcitriol 2020-0 Yes = 1 cap, Mem oria 0.25 mcg 5-20 PO, Daily, l oral 12:18: # 90 cap, Philip capsule 00 1 Refill(s), [facility] #[id number] calcitriol 2020-0 Yes = 1 cap, Mem oria 0.25 mcg 5-20 PO, Daily, l oral 12:18: # 90 cap, Denis capsule 00 1 Refill(s), [facility][id number] calcitriol 2020-0 Yes = 1 cap, Mem oria 0.25 mcg 5-20 PO, Daily, l oral 12:18: # 90 cap, Denis capsule 00 1 Refill(s), [facility] #[id number] calcitriol 2020-0 Yes = 1 cap, Mem oria 0.25 mcg 4-16 PO, Daily, l oral 16:37: # 90 Denis capsule 47 unknown unit, Pharmacy: [facility] STORE #[id number] calcitriol 2020-0 Yes = 1 cap, Mem oria 0.25 mcg 4-16 PO, Daily, l oral 16:37: # 90 Philip capsule 47 unknown unit, Pharmacy: [facility] [employer] [facility] #[id number] calcitriol 2020-0 Yes = 1 cap, Mem oria 0.25 mcg 4-16 PO, Daily, l oral 16:37: # 90 Denis capsule 47 unknown unit, Pharmacy: [facility] [employer] [facility] #[id number] calcitriol 2020-0 Yes = 1 cap, Mem oria 0.25 mcg 4-16 PO, Daily, l oral 16:37: # 90 Ednis capsule 47 unknown unit, Pharmacy: [facility] [employer] [facility] #[id number] calcitriol 2020-0 Yes = 1 cap, Mem oria 0.25 mcg 4-16 PO, Daily, l oral 16:37: # 90 Denis capsule 47 unknown unit, Pharmacy: [facility] [employer] [facility] #[id number] calcitriol 2020-0 Yes = 1 cap, Mem oria 0.25 mcg 4-16 PO, Daily, l oral 16:37: # 90 Philip capsule 47 unknown unit, Pharmacy: [facility] [employer] [facility] #[id number] calcitriol 2020-0 Yes = 1 cap, Mem oria 0.25 mcg 4-16 PO, Daily, l oral 16:37: # 90 Denis capsule 47 unknown unit, Pharmacy: [facility] [employer] [facility] #[id number] calcitriol 2020-0 Yes = 1 cap, Mem oria 0.25 mcg 4-16 PO, Daily, l oral 16:37: # 90 Philip capsule 47 unknown unit, Pharmacy: [facility] [employer] [facility] #[id number] calcitriol 2020-0 Yes = 1 cap, Mem oria 0.25 mcg 4-16 PO, Daily, l oral 16:37: # 90 Denis capsule 47 unknown unit, Pharmacy: [facility] [employer] [facility] #[id number] Furosemide 2020-0 Yes = 1 tab, Mem oria 40 MG Oral 4-13 PO, Every l Tablet 20:06: Other Day, Karen nn 19 # 45 tab, Pharmacy: [facility] STORE #[id number] Furosemide 2020-0 Yes = 1 tab, Mem oria 40 MG Oral 4-13 PO, Every l Tablet 20:06: Other Day, Karen nn 19 # 45 tab, Pharmacy: [facility] STORE #[id number] Furosemide 2020-0 Yes = 1 tab, Mem oria 40 MG Oral 4-13 PO, Every l Tablet 20:06: Other Day, [facility] 19 # 45 tab, Pharmacy: [facility] [employer] [facility] #[id number] Furosemide 2020-0 Yes = 1 tab, Mem oria 40 MG Oral 4-13 PO, Every l Tablet 20:06: Other Day, [facility] 19 # 45 tab, Pharmacy: [facility] #[id number] Furosemide 2020-0 Yes = 1 tab, Mem oria 40 MG Oral 4-13 PO, Every l Tablet 20:06: Other Day, [facility] 19 # 45 tab, Pharmacy: [facility] [employer] [facility] #[id number] Furosemide 2020-0 Yes = 1 tab, Mem oria 40 MG Oral 4-13 PO, Every l Tablet 20:06: Other Day, [facility] 19 # 45 tab, Pharmacy: [facility] [employer] [facility] #[id number] Furosemide 2020-0 Yes = 1 tab, Mem oria 40 MG Oral 4-13 PO, Every l Tablet 20:06: Other Day, [facility] 19 # 45 tab, Pharmacy: [facility] [employer] [facility] #[id number] Furosemide 2020-0 Yes = 1 tab, Mem oria 40 MG Oral 4-13 PO, Every l Tablet 20:06: Other Day, [facility] 19 # 45 tab, Pharmacy: [facility] [employer] [facility] #[id number] Furosemide 2020-0 Yes = 1 tab, Mem oria 40 MG Oral 4-13 PO, Every l Tablet 20:06: Other Day, [facility] 19 # 45 tab, Pharmacy: [facility] [employer] [facility] #[id number] prednisolon 2020-0 Yes 1 drop in M [...] each eye, l 10 MG/ML 20:53: once Philip Ophthalmic 00 daily, 0 Suspension Refill(s) bromfenac [...] each eye, l 10 MG/ML 20:53: once Philip Ophthalmic 00 daily, 0 Suspension Refill(s) bromfenac 2020-0 Yes 1 drop in Mem oria 0.7 MG/ML 4-10 right eye, l Ophthalmic 20:53: once Philip Solution 00 daily, 0 [Prolensa] Refill(s) prednisolon 2020-0 Yes 1 drop in M emoria e acetate 4-10 each eye, l 10 MG/ML 20:53: once Denis Ophthalmic 00 daily, 0 Suspension Refill(s) bromfenac 2020-0 Yes 1 drop in Mem oria 0.7 MG/ML 4-10 right eye, l Ophthalmic 20:53: once Philip Solution 00 daily, 0 [Prolensa] Refill(s) prednisolon 2020-0 Yes 1 drop in M emoria e acetate 4-10 each eye, l 10 MG/ML 20:53: once Denis Ophthalmic 00 daily, 0 Suspension Refill(s) bromfenac 2020-0 Yes 1 drop in Mem oria 0.7 MG/ML 4-10 right eye, l Ophthalmic 20:53: once Philip Solution 00 daily, 0 [Prolensa] Refill(s) prednisolon 2020-0 Yes 1 drop in M emoria e acetate 4-10 each eye, l 10 MG/ML 20:53: once Denis Ophthalmic 00 daily, 0 Suspension Refill(s) bromfenac 2020-0 Yes 1 drop in Mem oria 0.7 MG/ML 4-10 right eye, l Ophthalmic 20:53: once Philip Solution 00 daily, 0 [Prolensa] Refill(s) prednisolon 2020-0 Yes 1 drop in M emoria e acetate 4-10 each eye, l 10 MG/ML 20:53: once Philip Ophthalmic 00 daily, 0 Suspension Refill(s) bromfenac [...] 4-10 right eye, l Ophthalmic 20:53: once Philip Solution 00 daily, 0 [Prolensa] Refill(s) Furosemide 2020-0 Yes = 1 tab, Mem oria 40 MG Oral 1-23 PO, Every l Tablet 15:13: Other Day, Karen robb 34 # 45 tab, [facility] [employer] [facility] #[id number] Furosemide 2020-0 Yes = 1 tab, Mem oria 40 MG Oral 1-23 PO, Every l Tablet 15:13: Other Day, Karen robb 34 # 45 tab, Pharmacy: [facility] [employer] [facility] #[id number] Furosemide 2020-0 Yes = 1 tab, Mem oria 40 MG Oral 1-23 PO, Every l Tablet 15:13: Other Day, Karen robb 34 # 45 tab, [facility] [employer] [facility] #[id number] Furosemide 2020-0 Yes = 1 tab, Mem oria 40 MG Oral 1-23 PO, Every l Tablet 15:13: Other Day, Karen robb 34 # 45 tab, [facility] [employer] [facility] #[id number] Furosemide 2020-0 Yes = 1 tab, Mem oria 40 MG Oral 1-23 PO, Every l Tablet 15:13: Other Day, Karen nn 34 # 45 tab, Pharmacy: [facility] #[id number] Furosemide 2020-0 Yes = 1 tab, Mem oria 40 MG Oral 1-23 PO, Every l Tablet 15:13: Other Day, Karen nn 34 # 45 tab, Pharmacy: [facility] [employer] [facility] #[id number] Furosemide 2020-0 Yes = 1 tab, Mem oria 40 MG Oral 1-23 PO, Every l Tablet 15:13: Other Day, Karen robb 34 # 45 tab, Pharmacy: [facility] [employer] [facility] #[id number] Furosemide 2020-0 Yes = 1 tab, Mem oria 40 MG Oral 1-23 PO, Every l Tablet 15:13: Other Day, Karen nn 34 # 45 tab, Pharmacy: [facility] #[id number] Furosemide Yes = 1 tab, Mem oria 40 MG Oral 1-23 PO, Every l Tablet 15:13: Other Day, Karen nn 34 # 45 tab, Pharmacy: [facility] [address] [place] [address] 2018-10 Yes See Memoria 0.02 MG/MG 2-27 Instructio l Topical 19:11: ns, # 66 Vicente n Ointment 15 gm, APPLY EXTERNALLY TO THE AFFECTED AREA TWICE DAILY, Pharmacy: [facility] [employer] [facility] [address] [place] [address] 2018-10 Yes See Memoria 0.02 MG/MG 2-27 Instructio l Topical 19:11: ns, # 66 Vicente n Ointment 15 gm, APPLY EXTERNALLY TO THE AFFECTED AREA TWICE DAILY, Pharmacy: [facility] [employer] [facility] [address] [place] [address] 2018-10 Yes See Memoria 0.02 MG/MG 2-27 Instructio l Topical 19:11: ns, # 66 Vicente n Ointment 15 gm, APPLY EXTERNALLY TO THE AFFECTED AREA TWICE DAILY, Pharmacy: [facility] [employer] [facility] [address] [place] [address] 2018-10 Yes See Memoria 0.02 MG/MG 2-27 Instructio l Topical 19:11: ns, # 66 Vicente n Ointment 15 gm, APPLY EXTERNALLY TO THE AFFECTED AREA TWICE DAILY, Pharmacy: [facility] [employer] [facility] [address] [place] [address] 2018-10 Yes See Memoria 0.02 MG/MG 2-27 Instructio l Topical 19:11: ns, # 66 Vicente n Ointment 15 gm, APPLY EXTERNALLY TO THE AFFECTED AREA TWICE DAILY, Pharmacy: [facility] [employer] [facility] [address] [place] [address] 2018-10 Yes See Memoria 0.02 MG/MG 2-27 Instructio l Topical 19:11: ns, # 66 Vicente n Ointment 15 gm, APPLY EXTERNALLY TO THE AFFECTED AREA TWICE DAILY, Pharmacy: [facility] [employer] [facility] [address] [place] [address] 2018-10 Yes See Memoria 0.02 MG/MG 2-27 Instructio l Topical 19:11: ns, # 66 Vicente n Ointment 15 gm, APPLY EXTERNALLY TO THE AFFECTED AREA TWICE DAILY, Pharmacy: [facility] #[id number] Mupirocin 2018-10 Yes See Memoria 0.02 MG/MG 2-27 Instructio l Topical 19:11: ns, # 66 Vicente n Ointment 15 gm, APPLY EXTERNALLY TO THE AFFECTED AREA TWICE DAILY, Pharmacy: [facility] #[id number] Mupirocin 2018-10 Yes See Memoria 0.02 MG/MG 2-27 Instructio l Topical 19:11: ns, # 66 Vicente n Ointment 15 gm, APPLY EXTERNALLY TO THE AFFECTED AREA TWICE DAILY, Pharmacy: [facility] ST[facility] #[id number] Nitrofurant 2018-10 Yes 100 mg = 1 Memoria oin 100 MG 2-13 cap, PO, l Oral 01:44: BID, X 5 Denis Capsule 00 day, # 10 [[place]rod[place] cap, 0 n] Refill(s), Pharmacy: [facility] [employer] [facility] #[id number] Nitrofurant 2018-10 Yes 100 mg = 1 Memoria oin 100 MG 2-13 cap, PO, l Oral 01:44: BID, X 5 Philip Capsule 00 day, # 10 [[place]rod[place] cap, 0 n] Refill(s), Pharmacy: [facility] [employer] [facility] #[id number] Nitrofurant 2018-10 Yes 100 mg = 1 Memoria oin 100 MG 2-13 cap, PO, l Oral 01:44: BID, X 5 Denis Capsule 00 day, # 10 [[place] cap, 0 n] Refill(s), Pharmacy: [facility] ST[facility] #[id number] Nitrofurant 2018-10 Yes 100 mg = 1 Memoria oin 100 MG 2-13 cap, PO, l Oral 01:44: BID, X 5 Philip Capsule 00 day, # 10 [[place]rod[place] cap, 0 n] Refill(s), Pharmacy: [facility] ST[facility] #[id number] Nitrofurant 2018-10 Yes 100 mg = 1 Memoria oin 100 MG 2-13 cap, PO, l Oral 01:44: BID, X 5 Denis Capsule 00 day, # 10 [[place] cap, 0 n] Refill(s), Pharmacy: [facility] ST[facility] #[id number] Nitrofurant 2019-1 Yes 100 mg = 1 Memoria oin 100 MG 2-13 cap, PO, l Oral 01:44: BID, X 5 Philip Capsule 00 day, # 10 [[place] cap, 0 n] Refill(s), Pharmacy: [facility] #[id number] Nitrofurant 2018-10 Yes 100 mg = 1 Memoria oin 100 MG 2-13 cap, PO, l Oral 01:44: BID, X 5 Philip Capsule 00 day, # 10 [[place] cap, 0 n] Refill(s), Pharmacy: [facility] #[id number] Nitrofurant 2018-10 Yes 100 mg = 1 Memoria oin 100 MG 2-13 cap, PO, l Oral 01:44: BID, X 5 Philip Capsule 00 day, # 10 [[place] cap, 0 n] Refill(s), Pharmacy: [facility] #[id number] Nitrofurant 2018-10 Yes 100 mg = 1 Memoria oin 100 MG 2-13 cap, PO, l Oral 01:44: BID, X 5 Denis Capsule 00 day, # 10 [[place] cap, 0 n] Refill(s), Pharmacy: [facility] ST[facility] #[id number] apixaban 5 2018-10 Yes 5 mg, PO, [...] ermann Bitartrate 00 5 MG Oral Tablet [[place] 5/325] apixaban 5 2018-10 Yes 5 mg, [...] ermann Bitartrate 00 5 MG Oral Tablet [[place] 5/325] apixaban 5 2018-10 Yes 5 mg, [...] ermann Bitartrate 00 5 MG Oral Tablet [[place] 5/325] apixaban 5 2018-10 Yes 5 mg, [...] ermann Bitartrate 00 5 MG Oral Tablet [[place] 5/325] apixaban 5 2018-10 Yes 5 mg, [...] ermann Bitartrate 00 5 MG Oral Tablet [[place] 5/325] apixaban 5 2018-10 Yes 5 mg, [...] ermann Bitartrate 00 5 MG Oral Tablet [[place] 5/325] apixaban 5 2018-10 Yes 5 mg, [...] ermann Bitartrate 00 5 MG Oral Tablet [[place] 5/325] apixaban 5 2018-10 Yes 5 mg, [...] ermann Bitartrate 00 5 MG Oral Tablet [[place] 5/325] apixaban 5 2018-10 Yes 5 mg, [...] ermann Bitartrate 00 5 MG Oral Tablet [[place] 5/325] calcitriol 2018-10 Yes = 1 cap, Mem oria 0.25 mcg 0-11 PO, Daily, l oral 21:10: # 90 Philip capsule 30 unknown unit, Pharmacy: [facility] [employer] [facility] #[id number] calcitriol 2018-10 Yes = 1 cap, Mem oria 0.25 mcg 0-11 PO, Daily, l oral 21:10: # 90 Philip capsule 30 unknown unit, Pharmacy: [facility] [employer] [facility] #[id number] calcitriol 2018-10 Yes = 1 cap, Mem oria 0.25 mcg 0-11 PO, Daily, l oral 21:10: # 90 Philip capsule 30 unknown unit, Pharmacy: [facility] [employer] [facility] #[id number] calcitriol 2018-10 Yes = 1 cap, Mem oria 0.25 mcg 0-11 PO, Daily, l oral 21:10: # 90 Denis capsule 30 unknown unit, [facility] #[id number] calcitriol 2018-10 Yes = 1 cap, Mem oria 0.25 mcg 0-11 PO, Daily, l oral 21:10: # 90 Denis capsule 30 unknown unit, [facility] #[id number] calcitriol 2018-10 Yes = 1 cap, Mem oria 0.25 mcg 0-11 PO, Daily, l oral 21:10: # 90 Denis capsule 30 unknown unit, Pharmacy: [facility] [employer] [facility] #[id number] calcitriol 2018-10 Yes = 1 cap, Mem oria 0.25 mcg 0-11 PO, Daily, l oral 21:10: # 90 Denis capsule 30 unknown unit, [facility] #[id number] calcitriol 2018-10 Yes = 1 cap, Mem oria 0.25 mcg 0-11 PO, Daily, l oral 21:10: # 90 Denis capsule 30 unknown unit, [facility] #[id number] calcitriol 2018-10 Yes = 1 cap, Mem oria 0.25 mcg 0-11 PO, Daily, l oral 21:10: # 90 Denis capsule 30 unknown unit, [id number] gabapentin 2018- Yes 300 mg = 1 [...] # 90 Vicente martinez n 31 Pharmacy: [facility] ST[facility] #[id number] allopurinol 2019-0 Yes = 1 tab, Me moria 300 mg oral 8-17 PO, Daily, l tablet 02:39: # 90 tab, Vicente n 31 Pharmacy: [facility] #[id number] allopurinol 2019-0 Yes = 1 tab, Me moria 300 mg oral 8-17 PO, Daily, l tablet 02:39: # 90 tab, [place] [address] Pharmacy: [facility] #[id number] allopurinol 2019-0 Yes = 1 tab, Me moria 300 mg oral 8-17 PO, Daily, l tablet 02:39: # 90 tab, [place] [address] Pharmacy: [facility] #[id number] allopurinol 2019-0 Yes = 1 tab, Me moria 300 mg oral 8-17 PO, Daily, l tablet 02:39: # 90 tab, [place] [address] Pharmacy: [facility] #[id number] allopurinol 2019-0 Yes = 1 tab, Me moria 300 mg oral 8-17 PO, Daily, l tablet 02:39: # 90 tab, [place] [address] Pharmacy: [facility] #[id number] allopurinol 2019-0 Yes = 1 tab, Me moria 300 mg oral 8-17 PO, Daily, l tablet 02:39: # 90 tab, [place] [address] Pharmacy: [facility] #[id number] allopurinol 2019-0 Yes = 1 tab, Me moria 300 mg oral 8-17 PO, Daily, l tablet 02:39: # 90 tab, [place] [address] Pharmacy: [facility] #[id number] allopurinol 2019-0 Yes = 1 tab, Me moria 300 mg oral 8-17 PO, Daily, l tablet 02:39: # 90 tab, [place] [address] Pharmacy: [facility] #[id number] QUEtiapine 2019-0 Yes 50 mg = 1 [...] BEDTIME, # 90 tab, 1 Refill(s), Pharmacy: [facility] at[facility] Yes See Memori a n 40 mg 3-14 Instructio l oral tablet 15:07: ns, TAKE 1 Philip 35 TABLET BY MOUTH EVERY NIGHT AT BEDTIME, # 90 tab, 1 Refill(s), Pharmacy: [facility] at[facility] Yes See Memori a n 40 mg 3-14 Instructio l oral tablet 15:07: ns, TAKE 1 Philip 35 TABLET BY MOUTH EVERY NIGHT AT BEDTIME, # 90 tab, 1 Refill(s), Pharmacy: [facility] [address] Yes See Memori a n 40 mg 3-14 Instructio l oral tablet 15:07: ns, TAKE 1 Denis 35 TABLET BY MOUTH EVERY NIGHT AT BEDTIME, # 90 tab, 1 Refill(s), Pharmacy: [facility] [address] Yes See Memori a n 40 mg 3-14 Instructio l oral tablet 15:07: ns, TAKE 1 Philip 35 TABLET BY MOUTH EVERY NIGHT AT BEDTIME, # 90 tab, 1 Refill(s), Pharmacy: [facility] [address] Yes See Memori a n 40 mg 3-14 Instructio l oral tablet 15:07: ns, TAKE 1 Denis 35 TABLET BY MOUTH EVERY NIGHT AT BEDTIME, # 90 tab, 1 Refill(s), Pharmacy: [facility] [address] Yes See Memori a n 40 mg 3-14 Instructio l oral tablet 15:07: ns, TAKE 1 Denis 35 TABLET BY MOUTH EVERY NIGHT AT BEDTIME, # 90 tab, 1 Refill(s), Pharmacy: [facility] [address] Yes See Memori a n 40 mg 3-14 Instructio l oral tablet 15:07: ns, TAKE 1 Philip 35 TABLET BY MOUTH EVERY NIGHT AT BEDTIME, # 90 tab, 1 Refill(s), Pharmacy: [facility] [address] Yes See Memori a n 40 mg 3-14 Instructio l oral tablet 15:07: ns, TAKE 1 Philip 35 TABLET BY MOUTH EVERY NIGHT AT BEDTIME, # 90 tab, 1 Refill(s), Pharmacy: [facility] [place] [address] amLODIPine Yes See Memoria 5 mg oral 3-14 Instructio l tablet 15:07: ns, TAKE 1 Karen nn 33 TABLET BY MOUTH EVERY DAY, # 90 tab, 1 Refill(s), Pharmacy: [facility] [place] [address] amLODIPine Yes See Memoria 5 mg oral 3-14 Instructio l tablet 15:07: ns, TAKE 1 Karen nn 33 TABLET BY MOUTH EVERY DAY, # 90 tab, 1 Refill(s), Pharmacy: [place] [address] amLODIPine Yes See Memoria 5 mg oral 3-14 Instructio l tablet 15:07: ns, TAKE 1 Karen nn 33 TABLET BY MOUTH EVERY DAY, # 90 tab, 1 Refill(s), Pharmacy: [place] [address] amLODIPine Yes See Memoria 5 mg oral 3-14 Instructio l tablet 15:07: ns, TAKE 1 Karen nn 33 TABLET BY MOUTH EVERY DAY, # 90 tab, 1 Refill(s), Pharmacy: [place] [address] amLODIPine Yes See Memoria 5 mg oral 3-14 Instructio l tablet 15:07: ns, TAKE 1 Karen nn 33 TABLET BY MOUTH EVERY DAY, # 90 tab, 1 Refill(s), Pharmacy: [place] [address] amLODIPine Yes See Memoria 5 mg oral 3-14 Instructio l tablet 15:07: ns, TAKE 1 Karen nn 33 TABLET BY MOUTH EVERY DAY, # 90 tab, 1 Refill(s), Pharmacy: [place] [address] amLODIPine Yes See Memoria 5 mg oral 3-14 Instructio l tablet 15:07: ns, TAKE 1 Karen nn 33 TABLET BY MOUTH EVERY DAY, # 90 tab, 1 Refill(s), Pharmacy: [place] [address] amLODIPine Yes See Memoria 5 mg oral 3-14 Instructio l tablet 15:07: ns, TAKE 1 Karen nn 33 TABLET BY MOUTH EVERY DAY, # 90 tab, 1 Refill(s), Pharmacy: [facility] [place] [address] amLODIPine Yes See Memoria 5 mg oral 3-14 Instructio l tablet 15:07: ns, TAKE 1 Karen nn 33 TABLET BY MOUTH EVERY DAY, # 90 tab, 1 Refill(s), Pharmacy: [facility] [place] [address] lisinopril Yes See Memoria 5 mg oral 8-21 Instructio l tablet 19:00: ns, TAKE 1 Karen nn 30 TABLET BY MOUTH DAILY, # 90 tab, 1 Refill(s), Pharmacy: [facility] [place] [address] lisinopril Yes See Memoria 5 mg oral 8-21 Instructio l tablet 19:00: ns, TAKE 1 Karen nn 30 TABLET BY MOUTH DAILY, # 90 tab, 1 Refill(s), Pharmacy: [facility] [place] [address] lisinopril Yes See Memoria 5 mg oral 8-21 Instructio l tablet 19:00: ns, TAKE 1 Karen nn 30 TABLET BY MOUTH DAILY, # 90 tab, 1 Refill(s), Pharmacy: [facility] [place] [address] lisinopril Yes See Memoria 5 mg oral 8-21 Instructio l tablet 19:00: ns, TAKE 1 Karen nn 30 TABLET BY MOUTH DAILY, # 90 tab, 1 Refill(s), Pharmacy: [facility] [place] [address] lisinopril Yes See Memoria 5 mg oral 8-21 Instructio l tablet 19:00: ns, TAKE 1 Karen nn 30 TABLET BY MOUTH DAILY, # 90 tab, 1 Refill(s), Pharmacy: [facility] [place] [address] lisinopril Yes See Memoria 5 mg oral 8-21 Instructio l tablet 19:00: ns, TAKE 1 Karen nn 30 TABLET BY MOUTH DAILY, # 90 tab, 1 Refill(s), Pharmacy: [facility] [place] [address] lisinopril Yes See Memoria 5 mg oral 8-21 Instructio l tablet 19:00: ns, TAKE 1 Karen nn 30 TABLET BY MOUTH DAILY, # 90 tab, 1 Refill(s), Pharmacy: [facility] [place] [address] lisinopril Yes See Memoria 5 mg oral 8-21 Instructio l tablet 19:00: ns, TAKE 1 Karen nn 30 TABLET BY MOUTH DAILY, # 90 tab, 1 Refill(s), Pharmacy: [facility] [place] [address] lisinopril Yes See Memoria 5 mg oral 8-21 Instructio l tablet 19:00: ns, TAKE 1 Karen nn 30 TABLET BY MOUTH DAILY, # 90 tab, 1 Refill(s), Pharmacy: [facility] [place] [address] atorvastati Yes See Memori a n 40 mg 8-21 Instructio l oral tablet 18:50: ns, TAKE 1 Philip 45 TABLET BY MOUTH EVERY NIGHT AT BEDTIME, # 30 tab, 5 Refill(s), Pharmacy: [facility] [address] Yes See Memori a n 40 mg 8-21 Instructio l oral tablet 18:50: ns, TAKE 1 Denis 45 TABLET BY MOUTH EVERY NIGHT AT BEDTIME, # 30 tab, 5 Refill(s), Pharmacy: [facility] [address] Yes See Memori a n 40 mg 8-21 Instructio l oral tablet 18:50: ns, TAKE 1 Philip 45 TABLET BY MOUTH EVERY NIGHT AT BEDTIME, # 30 tab, 5 Refill(s), Pharmacy: [facility] [address] Yes See Memori a n 40 mg 8-21 Instructio l oral tablet 18:50: ns, TAKE 1 Philip 45 TABLET BY MOUTH EVERY NIGHT AT BEDTIME, # 30 tab, 5 Refill(s), Pharmacy: [facility] [address] Yes See Memori a n 40 mg 8-21 Instructio l oral tablet 18:50: ns, TAKE 1 Denis 45 TABLET BY MOUTH EVERY NIGHT AT BEDTIME, # 30 tab, 5 Refill(s), Pharmacy: [facility] [address] Yes See Memori a n 40 mg 8-21 Instructio l oral tablet 18:50: ns, TAKE 1 Philip 45 TABLET BY MOUTH EVERY NIGHT AT BEDTIME, # 30 tab, 5 Refill(s), Pharmacy: [facility] [address] Yes See Memori a n 40 mg 8-21 Instructio l oral tablet 18:50: ns, TAKE 1 Denis 45 TABLET BY MOUTH EVERY NIGHT AT BEDTIME, # 30 tab, 5 Refill(s), Pharmacy: [facility] [address] Yes See Memori a n 40 mg 8-21 Instructio l oral tablet 18:50: ns, TAKE 1 Denis 45 TABLET BY MOUTH EVERY NIGHT AT BEDTIME, # 30 tab, 5 Refill(s), Pharmacy: [facility] [address] Yes See Memori a n 40 mg 8-21 Instructio l oral tablet 18:50: ns, TAKE 1 Denis 45 TABLET BY MOUTH EVERY NIGHT AT BEDTIME, # 30 tab, 5 Refill(s), Pharmacy: [place] [address] amLODIPine Yes See Memoria 5 mg oral 8-21 Instructio l tablet 18:50: ns, TAKE 1 Karen nn 41 TABLET BY MOUTH EVERY DAY, # 30 tab, 5 Refill(s), Pharmacy: [place] [address] amLODIPine Yes See Memoria 5 mg oral 8-21 Instructio l tablet 18:50: ns, TAKE 1 Karen nn 41 TABLET BY MOUTH EVERY DAY, # 30 tab, 5 Refill(s), Pharmacy: [place] [address] amLODIPine Yes See Memoria 5 mg oral 8-21 Instructio l tablet 18:50: ns, TAKE 1 Karen nn 41 TABLET BY MOUTH EVERY DAY, # 30 tab, 5 Refill(s), [address] See Memoria 5 mg oral 8-21 Instructio l tablet 18:50: ns, TAKE 1 Karen nn 41 TABLET BY MOUTH EVERY DAY, # 30 tab, 5 Refill(s), Pharmacy: [facility] [place] [address] amLODIPine Yes See Memoria 5 mg oral 8-21 Instructio l tablet 18:50: ns, TAKE 1 Karen nn 41 TABLET BY MOUTH EVERY DAY, # 30 tab, 5 Refill(s), Pharmacy: [facility] [place] [address] amLODIPine Yes See Memoria 5 mg oral 8-21 Instructio l tablet 18:50: ns, TAKE 1 Karen nn 41 TABLET BY MOUTH EVERY DAY, # 30 tab, 5 Refill(s), Pharmacy: [facility] [place] [address] amLODIPine Yes See Memoria 5 mg oral 8-21 Instructio l tablet 18:50: ns, TAKE 1 Karen nn 41 TABLET BY MOUTH EVERY DAY, # 30 tab, 5 Refill(s), [address] See Memoria 5 mg oral 8-21 Instructio l tablet 18:50: ns, TAKE 1 Karen nn 41 TABLET BY MOUTH EVERY DAY, # 30 tab, 5 Refill(s), [address] See Memoria 5 mg oral 8-21 Instructio l tablet 18:50: ns, TAKE 1 Karen nn 41 TABLET BY MOUTH EVERY DAY, # 30 tab, 5 Refill(s), Pharmacy: [facility] lisinopril No See Memoria 5 mg oral 7-31 Instructio l tablet 15:28: ns, # 90 Denis 34 tab, TAKE 1 TABLET BY MOUTH DAILY, Pharmacy: [facility] lisinopril No See Memoria 5 mg oral 7-31 Instructio l tablet 15:28: ns, # 90 Philip 34 tab, TAKE 1 TABLET BY MOUTH DAILY, Pharmacy: [facility] lisinopril No See Memoria 5 mg oral 7-31 Instructio l tablet 15:28: ns, # 90 Denis 34 tab, TAKE 1 TABLET BY MOUTH DAILY, Pharmacy: [facility] lisinopril No See Memoria 5 mg oral 7-31 Instructio l tablet 15:28: ns, # 90 Philip 34 tab, TAKE 1 TABLET BY MOUTH DAILY, Pharmacy: [facility] lisinopril No See Memoria 5 mg oral 7-31 Instructio l tablet 15:28: ns, # 90 Philip 34 tab, TAKE 1 TABLET BY MOUTH DAILY, Pharmacy: [facility] lisinopril No See Memoria 5 mg oral 7-31 Instructio l tablet 15:28: ns, # 90 Denis 34 tab, TAKE 1 TABLET BY MOUTH DAILY, Pharmacy: [facility] lisinopril No See Memoria 5 mg oral 7-31 Instructio l tablet 15:28: ns, # 90 Philip 34 tab, TAKE 1 TABLET BY MOUTH DAILY, Pharmacy: [facility] lisinopril 0 No See Memoria 5 mg oral 7-31 Instructio l tablet 15:28: ns, # 90 Denis 34 tab, TAKE 1 TABLET BY MOUTH DAILY, Pharmacy: [facility] lisinopril No See Memoria 5 mg oral 7-31 Instructio l tablet 15:28: ns, # 90 Philip 34 tab, TAKE 1 TABLET BY MOUTH DAILY, Pharmacy: [facility] [id number] allopurinol 2018-0 No 300 mg = 1 Memoria 300 mg oral 5-10 tab, PO, l tablet 13:59: Daily, # Philip 00 90 tab, 1 Refill(s), Pharmacy: [facility] [id number] allopurinol 2018-0 No 300 mg = 1 Memoria 300 mg oral 5-10 tab, PO, l tablet 13:59: Daily, # Philip 00 90 tab, 1 Refill(s), Pharmacy: [facility] [id number] allopurinol 2017-0 No 300 mg = 1 Memoria 300 mg oral 5-10 tab, PO, l tablet 13:59: Daily, # Denis 00 90 tab, 1 Refill(s), Pharmacy: [place] [id number] allopurinol 2017-0 No 300 mg = 1 Memoria 300 mg oral 5-10 tab, PO, l tablet 13:59: Daily, # Denis 00 90 tab, 1 Refill(s), Pharmacy: [facility] [id number] allopurinol 2017-0 No 300 mg = 1 Memoria 300 mg oral 5-10 tab, PO, l tablet 13:59: Daily, # Denis 00 90 tab, 1 Refill(s), Pharmacy: [facility] [id number] allopurinol 2018-0 No 300 mg = 1 Memoria 300 mg oral 5-10 tab, PO, l tablet 13:59: Daily, # Philip 00 90 tab, 1 Refill(s), Pharmacy: [facility] [id number] allopurinol 2018-0 No 300 mg = 1 Memoria 300 mg oral 5-10 tab, PO, l tablet 13:59: Daily, # Denis 00 90 tab, 1 Refill(s), Pharmacy: [facility] [id number] allopurinol 2018-0 No 300 mg = 1 Memoria 300 mg oral 5-10 tab, PO, l tablet 13:59: Daily, # Philip 00 90 tab, 1 Refill(s), Pharmacy: [facility] [id number] allopurinol 2018-0 No 300 mg = 1 Memoria 300 mg oral 5-10 tab, PO, l tablet 13:59: Daily, # Philip 00 90 tab, 1 Refill(s), Pharmacy: [place] [address] lisinopril No See Memoria 5 mg oral 5-01 Instructio l tablet 12:38: ns, # 90 Philip 18 tab, TAKE 1 TABLET BY MOUTH DAILY, Pharmacy: [place] [address] ALLOPURINOL 0 Yes See Memori a 300MG 5-01 Instructio l TABLETS 12:38: ns, # 90 Vicente n 18 tab, TAKE 1 TABLET BY MOUTH DAILY, Pharmacy: [facility] [place] [address] lisinopril No See Memoria 5 mg oral 5-01 Instructio l tablet 12:38: ns, # 90 Philip 18 tab, TAKE 1 TABLET BY MOUTH DAILY, Pharmacy: [facility] [place] [address] ALLOPURINOL Yes See Memori a 300MG 5-01 Instructio l TABLETS 12:38: ns, # 90 Vicente n 18 tab, TAKE 1 TABLET BY MOUTH DAILY, Pharmacy: [facility] [place] [address] lisinopril No See Memoria 5 mg oral 5-01 Instructio l tablet 12:38: ns, # 90 Denis 18 tab, TAKE 1 TABLET BY MOUTH DAILY, Pharmacy: [facility] [place] [address] ALLOPURINOL Yes See Memori a 300MG 5-01 Instructio l TABLETS 12:38: ns, # 90 Vicente n 18 tab, TAKE 1 TABLET BY MOUTH DAILY, Pharmacy: [facility] [place] [address] lisinopril 0 No See Memoria 5 mg oral 5-01 Instructio l tablet 12:38: ns, # 90 Philip 18 tab, TAKE 1 TABLET BY MOUTH DAILY, Pharmacy: [facility] [place] [address] ALLOPURINOL 0 Yes See Memori a 300MG 5-01 Instructio l TABLETS 12:38: ns, # 90 Vicente n 18 tab, TAKE 1 TABLET BY MOUTH DAILY, Pharmacy: [facility] [place] [address] lisinopril 0 No See Memoria 5 mg oral 5-01 Instructio l tablet 12:38: ns, # 90 Denis 18 tab, TAKE 1 TABLET BY MOUTH DAILY, Pharmacy: [facility] [place] [address] ALLOPURINOL [id number] Yes See Memori a 300MG 5-01 Instructio l TABLETS 12:38: ns, # 90 Vicente n 18 tab, TAKE 1 TABLET BY MOUTH DAILY, Pharmacy: [facility] [place] [address] lisinopril No See Memoria 5 mg oral 5-01 Instructio l tablet 12:38: ns, # 90 Denis 18 tab, TAKE 1 TABLET BY MOUTH DAILY, Pharmacy: [facility] [place] [address] ALLOPURINOL Yes See Memori a 300MG 5-01 Instructio l TABLETS 12:38: ns, # 90 Vicente n 18 tab, TAKE 1 TABLET BY MOUTH DAILY, Pharmacy: [facility] [place] [address] lisinopril No See Memoria 5 mg oral 5-01 Instructio l tablet 12:38: ns, # 90 Philip 18 tab, TAKE 1 TABLET BY MOUTH DAILY, Pharmacy: [facility] [place] [address] ALLOPURINOL Yes See Memori a 300MG 5-01 Instructio l TABLETS 12:38: ns, # 90 Vicente n 18 tab, TAKE 1 TABLET BY MOUTH DAILY, Pharmacy: [facility] [place] [address] lisinopril No See Memoria 5 mg oral 5-01 Instructio l tablet 12:38: ns, # 90 Philip 18 tab, TAKE 1 TABLET BY MOUTH DAILY, Pharmacy: [facility] [place] [address] ALLOPURINOL Yes See Memori a 300MG 5-01 Instructio l TABLETS 12:38: ns, # 90 Vicente n 18 tab, TAKE 1 TABLET BY MOUTH DAILY, Pharmacy: [facility] [place] [address] lisinopril No See Memoria 5 mg oral 5-01 Instructio l tablet 12:38: ns, # 90 Denis 18 tab, TAKE 1 TABLET BY MOUTH DAILY, Pharmacy: [facility] [place] [address] ALLOPURINOL Yes See Memori a 300MG 5-01 Instructio l TABLETS 12:38: ns, # 90 Vicente n 18 tab, TAKE 1 TABLET BY MOUTH DAILY, Pharmacy: [facility] [place] [address] calcitriol Yes 0.25 Memoria 0.25 mcg 3-28 microgram l oral 13:49: = 1 cap, Denis capsule 00 PO, Daily, # 90 cap, 3 Refill(s), Pharmacy: [facility] [place] [address] calcitriol 0 Yes 0.25 Memoria 0.25 mcg 3-28 microgram l oral 13:49: = 1 cap, Philip capsule 00 PO, Daily, # 90 cap, 3 Refill(s), Pharmacy: [facility] [place] [address] calcitriol Yes 0.25 Memoria 0.25 mcg 3-28 microgram l oral 13:49: = 1 cap, Philip capsule 00 PO, Daily, # 90 cap, 3 Refill(s), Pharmacy: [facility] [place] [address] calcitriol Yes 0.25 Memoria 0.25 mcg 3-28 microgram l oral 13:49: = 1 cap, Denis capsule 00 PO, Daily, # 90 cap, 3 Refill(s), Pharmacy: [facility] [place] [address] calcitriol Yes 0.25 Memoria 0.25 mcg 3-28 microgram l oral 13:49: = 1 cap, Philip capsule 00 PO, Daily, # 90 cap, 3 Refill(s), Pharmacy: [facility] [place] [address] calcitriol Yes 0.25 Memoria 0.25 mcg 3-28 microgram l oral 13:49: = 1 cap, Philip capsule 00 PO, Daily, # 90 cap, 3 Refill(s), Pharmacy: [facility] [place] [address] calcitriol Yes 0.25 Memoria 0.25 mcg 3-28 microgram l oral 13:49: = 1 cap, Philip capsule 00 PO, Daily, # 90 cap, 3 Refill(s), Pharmacy: [facility] [place] [address] calcitriol Yes 0.25 Memoria 0.25 mcg 3-28 microgram l oral 13:49: = 1 cap, Denis capsule 00 PO, Daily, # 90 cap, 3 Refill(s), Pharmacy: [facility] [place] [address] calcitriol Yes 0.25 Memoria 0.25 mcg 3-28 microgram l oral 13:49: = 1 cap, Denis capsule 00 PO, Daily, # 90 cap, 3 Refill(s), Pharmacy: [facility] [place] [address] Mupirocin Yes 1 appl, Memor ia 0.02 MG/MG 3-21 TOP, BID, l Topical 15:37: 30 grams Vicente n Ointment 21 3each, # 3 ea, 1 Refill(s), Pharmacy: [facility] [id number] Mupirocin 2017-0 Yes 1 appl, Memor ia 0.02 MG/MG 3-21 TOP, BID, l Topical 15:37: 30 grams Vicente n Ointment 21 3each, # 3 ea, 1 Refill(s), Pharmacy: [facility] Mupirocin 2017-0 Yes 1 appl, Memor ia 0.02 MG/MG 3-21 TOP, BID, l Topical 15:37: 30 grams Vicente n Ointment 21 3each, # 3 ea, 1 Refill(s), Pharmacy: [facility] [address] [place], [place] [id number] 2017-0 Yes 1 appl, Memor ia 0.02 MG/MG 3-21 TOP, BID, l Topical 15:37: 30 grams Vicente n Ointment 21 3each, # 3 ea, 1 Refill(s), Pharmacy: [facility] [address] [place], [place] [id number] 2017-0 Yes 1 appl, Memor ia 0.02 MG/MG 3-21 TOP, BID, l Topical 15:37: 30 grams Vicente n Ointment 21 3each, # 3 ea, 1 Refill(s), Pharmacy: [facility] [address] [place], [place] [id number] 2017-0 Yes 1 appl, Memor ia 0.02 MG/MG 3-21 TOP, BID, l Topical 15:37: 30 grams Vicente n Ointment 21 3each, # 3 ea, 1 Refill(s), Pharmacy: [facility] Mupirocin 2017-0 Yes 1 appl, Memor ia 0.02 MG/MG 3-21 TOP, BID, l Topical 15:37: 30 grams Vicente n Ointment 21 3each, # 3 ea, 1 Refill(s), Pharmacy: [facility] Mupirocin 2017-0 Yes 1 appl, Memor ia 0.02 MG/MG 3-21 TOP, BID, l Topical 15:37: 30 grams Vicente n Ointment 21 3each, # 3 ea, 1 Refill(s), Pharmacy: [facility] Mupirocin 2017-0 Yes 1 appl, Memor ia 0.02 MG/MG 3-21 TOP, BID, l Topical 15:37: 30 grams Vicente n Ointment 21 3each, # 3 ea, 1 Refill(s), Pharmacy: [facility] [address] Yes See Memori a n 40 mg 3-21 Instructio l oral tablet 15:36: ns, TAKE 1 Denis 22 TABLET BY MOUTH EVERY NIGHT AT BEDTIME, # 30 tab, 5 Refill(s), Pharmacy: [address] Yes See Memori a n 40 mg 3-21 Instructio l oral tablet 15:36: ns, TAKE 1 Philip 22 TABLET BY MOUTH EVERY NIGHT AT BEDTIME, # 30 tab, 5 Refill(s), Pharmacy: [address] Yes See Memori a n 40 mg 3-21 Instructio l oral tablet 15:36: ns, TAKE 1 Philip 22 TABLET BY MOUTH EVERY NIGHT AT BEDTIME, # 30 tab, 5 Refill(s), Pharmacy: [facility] [address] Yes See Memori a n 40 mg 3-21 Instructio l oral tablet 15:36: ns, TAKE 1 Philip 22 TABLET BY MOUTH EVERY NIGHT AT BEDTIME, # 30 tab, 5 Refill(s), Pharmacy: [facility] [address] Yes See Memori a n 40 mg 3-21 Instructio l oral tablet 15:36: ns, TAKE 1 Philip 22 TABLET BY MOUTH EVERY NIGHT AT BEDTIME, # 30 tab, 5 Refill(s), Pharmacy: [facility] [address] Yes See Memori a n 40 mg 3-21 Instructio l oral tablet 15:36: ns, TAKE 1 Denis 22 TABLET BY MOUTH EVERY NIGHT AT BEDTIME, # 30 tab, 5 Refill(s), Pharmacy: [facility] [address] Yes See Memori a n 40 mg 3-21 Instructio l oral tablet 15:36: ns, TAKE 1 Philip 22 TABLET BY MOUTH EVERY NIGHT AT BEDTIME, # 30 tab, 5 Refill(s), Pharmacy: [facility] [address] Yes See Memori a n 40 mg 3-21 Instructio l oral tablet 15:36: ns, TAKE 1 Philip 22 TABLET BY MOUTH EVERY NIGHT AT BEDTIME, # 30 tab, 5 Refill(s), Pharmacy: [place] [address] atorvastati Yes See Memori a n 40 mg 3-21 Instructio l oral tablet 15:36: ns, TAKE 1 Denis 22 TABLET BY MOUTH EVERY NIGHT AT BEDTIME, # 30 tab, 5 Refill(s), Pharmacy: [place] [address] amLODIPine Yes See Memoria 5 mg oral 3-21 Instructio l tablet 15:36: ns, TAKE 1 Karen nn 18 TABLET BY MOUTH EVERY DAY, # 30 tab, 5 Refill(s), Pharmacy: [place] [address] amLODIPine Yes See Memoria 5 mg oral 3-21 Instructio l tablet 15:36: ns, TAKE 1 Karen nn 18 TABLET BY MOUTH EVERY DAY, # 30 tab, 5 Refill(s), Pharmacy: [place] [address] amLODIPine Yes See Memoria 5 mg oral 3-21 Instructio l tablet 15:36: ns, TAKE 1 Karen nn 18 TABLET BY MOUTH EVERY DAY, # 30 tab, 5 Refill(s), Pharmacy: [place] [address] amLODIPine Yes See Memoria 5 mg oral 3-21 Instructio l tablet 15:36: ns, TAKE 1 Karen nn 18 TABLET BY MOUTH EVERY DAY, # 30 tab, 5 Refill(s), Pharmacy: [place] [address] amLODIPine Yes See Memoria 5 mg oral 3-21 Instructio l tablet 15:36: ns, TAKE 1 Karen nn 18 TABLET BY MOUTH EVERY DAY, # 30 tab, 5 Refill(s), Pharmacy: [place] [address] amLODIPine Yes See Memoria 5 mg oral 3-21 Instructio l tablet 15:36: ns, TAKE 1 Karen nn 18 TABLET BY MOUTH EVERY DAY, # 30 tab, 5 Refill(s), Pharmacy: [place] [address] amLODIPine Yes See Memoria 5 mg oral 3-21 Instructio l tablet 15:36: ns, TAKE 1 Karen nn 18 TABLET BY MOUTH EVERY DAY, # 30 tab, 5 Refill(s), Pharmacy: [facility] [place] [address] amLODIPine 2018 Yes See Memoria 5 mg oral 3-21 Instructio l tablet 15:36: ns, TAKE 1 Karen nn 18 TABLET BY MOUTH EVERY DAY, # 30 tab, 5 Refill(s), Pharmacy: [facility] [place] [address] amLODIPine 2018- Yes See Memoria 5 mg oral 3-21 Instructio l tablet 15:36: ns, TAKE 1 Karen nn 18 TABLET BY MOUTH EVERY DAY, # 30 tab, 5 Refill(s), Pharmacy: [facility] [place] [address] aspirin 81 2017- Yes 81 mg = [...] tab, PO, l enteric 16:34: Daily, # Ivcente n coated 00 90 tab, 3 Refill(s) [...] 00 Once, solution first dose 12/30/15 19:00:00 MEDICAL DOCTOR MD, stop date 12/30/15 19:00:00 MEDICAL DOCTOR MD Xopenex No Kyle K 0.63 mg = Mem oria 0.63 mg/3 3-11 Silvestre 3 mL, l mL 01:00: Soln, NEB, Philip inhalation 00 Once, solution first dose 12/30/15 19:00:00 MEDICAL DOCTOR MD, stop date 12/30/15 19:00:00 MEDICAL DOCTOR MD Xopenex No Kyle K 0.63 mg = Mem oria 0.63 mg/3 3-11 Silvestre 3 mL, l mL 01:00: Soln, NEB, Philip inhalation 00 Once, solution first dose 12/30/15 19:00:00 MEDICAL DOCTOR MD, stop date 12/30/15 19:00:00 MEDICAL DOCTOR MD Xopenex No Kyle K 0.63 mg = Mem oria 0.63 mg/3 3-11 Silvestre 3 mL, l mL 01:00: Soln, NEB, Denis inhalation 00 Once, solution first dose 12/30/15 19:00:00 MEDICAL DOCTOR MD, stop date 12/30/15 19:00:00 MEDICAL DOCTOR MD Xopenex No Kyle K 0.63 mg = Mem oria 0.63 mg/3 3-11 Silvestre 3 mL, l mL 01:00: Soln, NEB, Denis inhalation 00 Once, solution first dose 12/30/15 19:00:00 MEDICAL DOCTOR MD, stop date 12/30/15 19:00:00 MEDICAL DOCTOR MD Xopenex No Kyle K 0.63 mg = Mem oria 0.63 mg/3 3-11 Silvestre 3 mL, l mL 01:00: Soln, NEB, Denis inhalation 00 Once, solution first dose 12/30/15 19:00:00 MEDICAL DOCTOR MD, stop date 12/30/15 19:00:00 MEDICAL DOCTOR MD Xopenex 2015-0 No Kyle K 0.63 mg = Mem oria 0.63 mg/3 3-11 Silvestre 3 mL, l mL 01:00: Soln, NEB, Denis inhalation 00 Once, solution first dose 12/30/15 19:00:00 MEDICAL DOCTOR MD, stop date 12/30/15 19:00:00 MEDICAL DOCTOR MD Xopenex 2015-0 No Kyle K 0.63 mg = Mem oria 0.63 mg/3 3-11 Silvestre 3 mL, l mL 01:00: Soln, NEB, Philip inhalation 00 Once, solution first dose 12/30/15 19:00:00 MEDICAL DOCTOR MD, stop date 12/30/15 19:00:00 MEDICAL DOCTOR MD Xopenex 2015-0 No Kyle K 0.63 mg = Mem oria 0.63 mg/3 3-11 Silvestre 3 mL, l mL 01:00: Soln, NEB, Denis inhalation 00 Once, solution first dose 12/30/15 19:00:00 MEDICAL DOCTOR MD, stop date 12/30/15 19:00:00 MEDICAL DOCTOR MD Mis 0 No Perico 300 mL, Memoria Medication 3-11 Wheat Soln-IV, l 00:03: IV, Once, Denis 00 first dose 12/30/15 18:03:00 MEDICAL DOCTOR MD, stop date 12/30/15 18:03:00 MEDICAL DOCTOR MD [facility] [place] 0 No Perico 300 mL, Memoria Medication 3-11 Wheat Soln-IV, l 00:03: IV, Once, Philip 00 first dose 12/30/15 18:03:00 MEDICAL DOCTOR MD, stop date 12/30/15 18:03:00 MEDICAL DOCTOR MD [facility] 0 No Perico 300 mL, Memoria Medication 3-11 Wheat Soln-IV, l 00:03: IV, Once, Denis 00 first dose 12/30/15 18:03:00 MEDICAL DOCTOR MD, stop date 12/30/15 18:03:00 MEDICAL DOCTOR MD Mis 0 No Perico 300 mL, Memoria Medication 3-11 Wheat Soln-IV, l 00:03: IV, Once, Philip 00 first dose 12/30/15 18:03:00 MEDICAL DOCTOR MD, stop date 12/30/15 18:03:00 MEDICAL DOCTOR MD [facility] 2016-0 No Perico 300 mL, Memoria Medication 3-11 Wheat Soln-IV, l 00:03: IV, Once, Denis 00 first dose 12/30/15 18:03:00 MEDICAL DOCTOR MD, stop date 12/30/15 18:03:00 MEDICAL DOCTOR MD [facility] [place] No Perico 300 mL, Memoria Medication 3-11 Wheat Soln-IV, l 00:03: IV, Once, Philip 00 first dose 12/30/15 18:03:00 MEDICAL DOCTOR MD, stop date 12/30/15 18:03:00 MEDICAL DOCTOR MD [facility] [place] No Perico 300 mL, Memoria Medication 3-11 Wheat Soln-IV, l 00:03: IV, Once, Philip 00 first dose 12/30/15 18:03:00 MEDICAL DOCTOR MD, stop date 12/30/15 18:03:00 MEDICAL DOCTOR MD [facility] [place] No Perico 300 mL, Memoria Medication 3-11 Wheat Soln-IV, l 00:03: IV, Once, Philip 00 first dose 12/30/15 18:03:00 MEDICAL DOCTOR MD, stop date 12/30/15 18:03:00 MEDICAL DOCTOR MD [facility] [place] No Perico 300 mL, Memoria Medication 3-11 Wheat Soln-IV, l 00:03: IV, Once, Denis 00 first dose 12/30/15 18:03:00 MEDICAL DOCTOR MD, stop date 12/30/15 18:03:00 MEDICAL DOCTOR MD promethazin No Kyle K 12.5 mg = Memoria e 3-11 Silvestre 0.5 mL, l 00:02: Injection, Denis 00 IM, Once PRN for severe nausea, first dose 12/30/15 18:02:00 MEDICAL DOCTOR MD albuterol No Kyle K 2.5 mg = 3 Memoria 2.5 mg/3 mL 3-11 Silvestre mL, Soln, l (0.083%) 00:02: NEB, Once Herm connie inhalation 00 PRN for solution wheezing, first dose 12/30/15 18:02:00 MEDICAL DOCTOR MD Demerol HCl No Kyle K 12.5 mg = Memoria 3-11 Silvestre 0.25 mL, l 00:02: Injection, Denis 00 IV Push, Once PRN for shivers, first dose 12/30/15 18:02:00 MEDICAL DOCTOR MD ondansetron No Kyle K 4 mg = 2 Memoria 3-11 Silvestre mL, l 00:02: Injection, Philip 00 IV Push, q15min PRN for nausea/vom iting, order duration: 2 doses, first dose 12/30/15 18:02:00 MEDICAL DOCTOR MD, stop date Limited # of times Dilaudid No Kyle K 0.5 mg = Mem oria 3-11 Silvestre 0.25 mL, l 00:02: Injection, Denis 00 IV Push, q10min PRN for pain severe (7-10), first dose 12/30/15 18:02:00 MEDICAL DOCTOR MD diphenhydrA No Kyle K 25 mg = M emoria MINE 3-11 Silvestre 0.5 mL, l 00:02: Injection, Denis 00 IV Push, Once PRN for itching, first dose 12/30/15 18:02:00 MEDICAL DOCTOR MD LR 1,000 mL No Kyle K 1,000 mL, Memoria 3-11 Silvestre IV, 75 l 00:02: mL/hr, Denis 00 start date 12/30/15 18:02:00 MEDICAL DOCTOR MD Saline Lock No Kyle K 10 mL, Me moria Flush 3-11 Silvestre Soln, IV l 00:02: Push, As Denis 00 Indicated PRN for flush, first dose 12/30/15 18:02:00 MEDICAL DOCTOR MD Bupivacaine No Kyle K 300 mL, M emoria 0.25% 300 3-11 Silvestre Nerve l mL pump 300 00:02: Block, 5 He rmann mL 00 mL/hr, start date 12/30/15 18:02:00 MEDICAL DOCTOR MD promethazin No Kyle K 12.5 mg = Memoria e 3-11 Silvestre 0.5 mL, l 00:02: Injection, Denis 00 IM, Once PRN for severe nausea, first dose 12/30/15 18:02:00 MEDICAL DOCTOR MD albuterol No Kyle K 2.5 mg = 3 Memoria 2.5 mg/3 mL 3-11 Silvestre mL, Soln, l (0.083%) 00:02: NEB, Once Herm connie inhalation 00 PRN for solution wheezing, first dose 12/30/15 18:02:00 MEDICAL DOCTOR MD Demerol HCl No Kyle K 12.5 mg = Memoria 3-11 Silvestre 0.25 mL, l 00:02: Injection, Denis 00 IV Push, Once PRN for shivers, first dose 12/30/15 18:02:00 MEDICAL DOCTOR MD ondansetron No Kyle K 4 mg = 2 Memoria 3-11 Silvestre mL, l 00:02: Injection, Denis 00 IV Push, q15min PRN for nausea/vom iting, order duration: 2 doses, first dose 12/30/15 18:02:00 MEDICAL DOCTOR MD, stop date Limited # of times Dilaudid No Kyle K 0.5 mg = Mem oria 3-11 Silvestre 0.25 mL, l 00:02: Injection, Philip 00 IV Push, q10min PRN for pain severe (7-10), first dose 12/30/15 18:02:00 MEDICAL DOCTOR MD diphenhydrA No Kyle K 25 mg = M emoria MINE 3-11 Silvestre 0.5 mL, l 00:02: Injection, Philip 00 IV Push, Once PRN for itching, first dose 12/30/15 18:02:00 MEDICAL DOCTOR MD LR 1,000 mL No Kyel K 1,000 mL, Memoria 3-11 Silvestre IV, 75 l 00:02: mL/hr, Denis 00 start date 12/30/15 18:02:00 MEDICAL DOCTOR MD Saline Lock No Kyle K 10 mL, Me moria Flush 3-11 Silvestre Soln, IV l 00:02: Push, As Denis Indicated PRN for flush, first dose 12/30/15 18:02:00 MEDICAL DOCTOR MD Bupivacaine No Kyle K 300 mL, M emoria 0.25% 300 3-11 Silvestre Nerve l mL pump 300 00:02: Block, 5 He rmann mL 00 mL/hr, start date 12/30/15 18:02:00 MEDICAL DOCTOR MD promethazin No Kyle K 12.5 mg = Memoria e 3-11 Silvestre 0.5 mL, l 00:02: Injection, Denis 00 IM, Once PRN for severe nausea, first dose 12/30/15 18:02:00 MEDICAL DOCTOR MD albuterol No Kyle K 2.5 mg = 3 Memoria 2.5 mg/3 mL 3-11 Silvestre mL, Soln, l (0.083%) 00:02: NEB, Once Herm connie inhalation 00 PRN for solution wheezing, first dose 12/30/15 18:02:00 MEDICAL DOCTOR MD Demerol HCl No Kyle K 12.5 mg = Memoria 3-11 Silvestre 0.25 mL, l 00:02: Injection, Denis 00 IV Push, Once PRN for shivers, first dose 12/30/15 18:02:00 MEDICAL DOCTOR MD ondansetron No Kyle K 4 mg = 2 Memoria 3-11 Silvestre mL, l 00:02: Injection, Philip 00 IV Push, q15min PRN for nausea/vom iting, order duration: 2 doses, first dose 12/30/15 18:02:00 MEDICAL DOCTOR MD, stop date Limited # of times Dilaudid No Kyle K 0.5 mg = Mem oria 3-11 Silvestre 0.25 mL, l 00:02: Injection, Philip 00 IV Push, q10min PRN for pain severe (7-10), first dose 12/30/15 18:02:00 MEDICAL DOCTOR MD diphenhydrA No Kyle K 25 mg = M emoria MINE 3-11 Silvestre 0.5 mL, l 00:02: Injection, Denis 00 IV Push, Once PRN for itching, first dose 12/30/15 18:02:00 MEDICAL DOCTOR MD LR 1,000 mL No Kyle K 1,000 mL, Memoria 3-11 Silvestre IV, 75 l 00:02: mL/hr, Denis 00 start date 12/30/15 18:02:00 MEDICAL DOCTOR MD Saline Lock No Kyle K 10 mL, Me moria Flush 3-11 Silvestre Soln, IV l 00:02: Push, As Denis 00 Indicated PRN for flush, first dose 12/30/15 18:02:00 MEDICAL DOCTOR MD Bupivacaine No Kyle K 300 mL, M emoria 0.25% 300 3-11 Silvestre Nerve l mL pump 300 00:02: Block, 5 He rmann mL 00 mL/hr, start date 12/30/15 18:02:00 MEDICAL DOCTOR MD promethazin No Kyle K 12.5 mg = Memoria e 3-11 Silvestre 0.5 mL, l 00:02: Injection, Denis 00 IM, Once PRN for severe nausea, first dose 12/30/15 18:02:00 MEDICAL DOCTOR MD albuterol No Kyle K 2.5 mg = 3 Memoria 2.5 mg/3 mL 3-11 Silvestre mL, Soln, l (0.083%) 00:02: NEB, Once Herm connie inhalation 00 PRN for solution wheezing, first dose 12/30/15 18:02:00 MEDICAL DOCTOR MD Demerol HCl No Kyle K 12.5 mg = Memoria 3-11 Silvestre 0.25 mL, l 00:02: Injection, Philip 00 IV Push, Once PRN for shivers, first dose 12/30/15 18:02:00 MEDICAL DOCTOR MD ondansetron No Kyle K 4 mg = 2 Memoria 3-11 Silvestre mL, l 00:02: Injection, Philip 00 IV Push, q15min PRN for nausea/vom iting, order duration: 2 doses, first dose 12/30/15 18:02:00 MEDICAL DOCTOR MD, stop date Limited # of times Dilaudid No Kyle K 0.5 mg = Mem oria 3-11 Silvestre 0.25 mL, l 00:02: Injection, Denis 00 IV Push, q10min PRN for pain severe (7-10), first dose 12/30/15 18:02:00 MEDICAL DOCTOR MD diphenhydrA No Kyle K 25 mg = M emoria MINE 3-11 Silvestre 0.5 mL, l 00:02: Injection, Denis 00 IV Push, Once PRN for itching, first dose 12/30/15 18:02:00 MEDICAL DOCTOR MD LR 1,000 mL No Kyle K 1,000 mL, Memoria 3-11 Silvestre IV, 75 l 00:02: mL/hr, Philip 00 start date 12/30/15 18:02:00 MEDICAL DOCTOR MD Saline Lock No Kyle K 10 mL, Me moria Flush 3-11 Silvestre Soln, IV l 00:02: Push, As Philip 00 Indicated PRN for flush, first dose 12/30/15 18:02:00 MEDICAL DOCTOR MD Bupivacaine No Kyle K 300 mL, M emoria 0.25% 300 3-11 Silvestre Nerve l mL pump 300 00:02: Block, 5 He rmann mL 00 mL/hr, start date 12/30/15 18:02:00 MEDICAL DOCTOR MD promethazin No Kyle K 12.5 mg = Memoria e 3-11 Silvestre 0.5 mL, l 00:02: Injection, Denis 00 IM, Once PRN for severe nausea, first dose 12/30/15 18:02:00 MEDICAL DOCTOR MD albuterol No Kyle K 2.5 mg = 3 Memoria 2.5 mg/3 mL 3-11 Silvestre mL, Soln, l (0.083%) 00:02: NEB, Once Herm connie inhalation 00 PRN for solution wheezing, first dose 12/30/15 18:02:00 MEDICAL DOCTOR MD Demerol HCl No Kyle K 12.5 mg = Memoria 3-11 Silvestre 0.25 mL, l 00:02: Injection, Denis 00 IV Push, Once PRN for shivers, first dose 12/30/15 18:02:00 MEDICAL DOCTOR MD ondansetron No Kyle K 4 mg = 2 Memoria 3-11 Silvestre mL, l 00:02: Injection, Denis 00 IV Push, q15min PRN for nausea/vom iting, order duration: 2 doses, first dose 12/30/15 18:02:00 MEDICAL DOCTOR MD, stop date Limited # of times Dilaudid No Kyle K 0.5 mg = Mem oria 3-11 Silvestre 0.25 mL, l 00:02: Injection, Denis 00 IV Push, q10min PRN for pain severe (7-10), first dose 12/30/15 18:02:00 MEDICAL DOCTOR MD diphenhydrA No Kyle K 25 mg = M emoria MINE 3-11 Silvestre 0.5 mL, l 00:02: Injection, Denis 00 IV Push, Once PRN for itching, first dose 12/30/15 18:02:00 MEDICAL DOCTOR MD LR 1,000 mL No Kyle K 1,000 mL, Memoria 3-11 Silvestre IV, 75 l 00:02: mL/hr, Philip 00 start date 12/30/15 18:02:00 MEDICAL DOCTOR MD Saline Lock No Kyle K 10 mL, Me moria Flush 3-11 Silvestre Soln, IV l 00:02: Push, As Denis 00 Indicated PRN for flush, first dose 12/30/15 18:02:00 MEDICAL DOCTOR MD Bupivacaine No Kyle K 300 mL, M emoria 0.25% 300 3-11 Silvestre Nerve l mL pump 300 00:02: Block, 5 He rmann mL 00 mL/hr, start date 12/30/15 18:02:00 MEDICAL DOCTOR MD promethazin No Kyle K 12.5 mg = Memoria e 3-11 Silvestre 0.5 mL, l 00:02: Injection, Denis 00 IM, Once PRN for severe nausea, first dose 12/30/15 18:02:00 MEDICAL DOCTOR MD albuterol No Kyle K 2.5 mg = 3 Memoria 2.5 mg/3 mL 3-11 Silvestre mL, Soln, l (0.083%) 00:02: NEB, Once Herm connie inhalation 00 PRN for solution wheezing, first dose 12/30/15 18:02:00 MEDICAL DOCTOR MD Demerol HCl No Kyle K 12.5 mg = Memoria 3-11 Silvestre 0.25 mL, l 00:02: Injection, Philip 00 IV Push, Once PRN for shivers, first dose 12/30/15 18:02:00 MEDICAL DOCTOR MD ondansetron No Kyle K 4 mg = 2 Memoria 3-11 Silvestre mL, l 00:02: Injection, Denis 00 IV Push, q15min PRN for nausea/vom iting, order duration: 2 doses, first dose 12/30/15 18:02:00 MEDICAL DOCTOR MD, stop date Limited # of times Dilaudid No Kyle K 0.5 mg = Mem oria 3-11 Silvestre 0.25 mL, l 00:02: Injection, Denis 00 IV Push, q10min PRN for pain severe (7-10), first dose 12/30/15 18:02:00 MEDICAL DOCTOR MD diphenhydrA No Kyle K 25 mg = M emoria MINE 3-11 Silvestre 0.5 mL, l 00:02: Injection, Philip 00 IV Push, Once PRN for itching, first dose 12/30/15 18:02:00 MEDICAL DOCTOR MD LR 1,000 mL No Kyle K 1,000 mL, Memoria 3-11 Silvestre IV, 75 l 00:02: mL/hr, Denis 00 start date 12/30/15 18:02:00 MEDICAL DOCTOR MD Saline Lock No Kyle K 10 mL, Me moria Flush 3-11 Silvestre Soln, IV l 00:02: Push, As Denis 00 Indicated PRN for flush, first dose 12/30/15 18:02:00 MEDICAL DOCTOR MD Bupivacaine No Kyle K 300 mL, M emoria 0.25% 300 3-11 Silvestre Nerve l mL pump 300 00:02: Block, 5 He rmann mL 00 mL/hr, start date 12/30/15 18:02:00 MEDICAL DOCTOR MD promethazin No Kyle K 12.5 mg = Memoria e 3-11 Silvestre 0.5 mL, l 00:02: Injection, Philip 00 IM, Once PRN for severe nausea, first dose 12/30/15 18:02:00 MEDICAL DOCTOR MD albuterol No Kyle K 2.5 mg = 3 Memoria 2.5 mg/3 mL 3-11 Silvestre mL, Soln, l (0.083%) 00:02: NEB, Once Herm connie inhalation 00 PRN for solution wheezing, first dose 12/30/15 18:02:00 MEDICAL DOCTOR MD Demerol HCl No Kyle K 12.5 mg = Memoria 3-11 Silvestre 0.25 mL, l 00:02: Injection, Philip 00 IV Push, Once PRN for shivers, first dose 12/30/15 18:02:00 MEDICAL DOCTOR MD ondansetron No Kyle K 4 mg = 2 Memoria 3-11 Silvestre mL, l 00:02: Injection, Philip 00 IV Push, q15min PRN for nausea/vom iting, order duration: 2 doses, first dose 12/30/15 18:02:00 MEDICAL DOCTOR MD, stop date Limited # of times Dilaudid No Kyle K 0.5 mg = Mem oria 3-11 Silvestre 0.25 mL, l 00:02: Injection, Philip 00 IV Push, q10min PRN for pain severe (7-10), first dose 12/30/15 18:02:00 MEDICAL DOCTOR MD diphenhydrA No Kyle K 25 mg = M emoria MINE 3-11 Silvestre 0.5 mL, l 00:02: Injection, Denis 00 IV Push, Once PRN for itching, first dose 12/30/15 18:02:00 MEDICAL DOCTOR MD LR 1,000 mL No Kyle K 1,000 mL, Memoria 3-11 Silvestre IV, 75 l 00:02: mL/hr, Denis 00 start date 12/30/15 18:02:00 MEDICAL DOCTOR MD Saline Lock No Kyle K 10 mL, Me moria Flush 3-11 Silvestre Soln, IV l 00:02: Push, As Denis 00 Indicated PRN for flush, first dose 12/30/15 18:02:00 MEDICAL DOCTOR MD Bupivacaine No Kyle K 300 mL, M emoria 0.25% 300 3-11 Silvestre Nerve l mL pump 300 00:02: Block, 5 He rmann mL 00 mL/hr, start date 12/30/15 18:02:00 MEDICAL DOCTOR MD promethazin No Kyle K 12.5 mg = Memoria e 3-11 Silvestre 0.5 mL, l 00:02: Injection, Philip 00 IM, Once PRN for severe nausea, first dose 12/30/15 18:02:00 MEDICAL DOCTOR MD albuterol No Kyle K 2.5 mg = 3 Memoria 2.5 mg/3 mL 3-11 Silvestre mL, Soln, l (0.083%) 00:02: NEB, Once Herm connie inhalation 00 PRN for solution wheezing, first dose 12/30/15 18:02:00 MEDICAL DOCTOR MD Demerol HCl No Kyle K 12.5 mg = Memoria 3-11 Silvestre 0.25 mL, l 00:02: Injection, Philip 00 IV Push, Once PRN for shivers, first dose 12/30/15 18:02:00 MEDICAL DOCTOR MD ondansetron No Kyle K 4 mg = 2 Memoria 3-11 Silvestre mL, l 00:02: Injection, Denis 00 IV Push, q15min PRN for nausea/vom iting, order duration: 2 doses, first dose 12/30/15 18:02:00 MEDICAL DOCTOR MD, stop date Limited # of times Dilaudid No Kyle K 0.5 mg = Mem oria 3-11 Silvestre 0.25 mL, l 00:02: Injection, Denis 00 IV Push, q10min PRN for pain severe (7-10), first dose 12/30/15 18:02:00 MEDICAL DOCTOR MD diphenhydrA No Kyle K 25 mg = M emoria MINE 3-11 Silvestre 0.5 mL, l 00:02: Injection, Denis 00 IV Push, Once PRN for itching, first dose 12/30/15 18:02:00 MEDICAL DOCTOR MD LR 1,000 mL No Kyle K 1,000 mL, Memoria 3-11 Silvestre IV, 75 l 00:02: mL/hr, Denis 00 start date 12/30/15 18:02:00 MEDICAL DOCTOR MD Saline Lock No Kyle K 10 mL, Me moria Flush 3-11 Silvestre Soln, IV l 00:02: Push, As Philip 00 Indicated PRN for flush, first dose 12/30/15 18:02:00 MEDICAL DOCTOR MD Bupivacaine No Kyle K 300 mL, M emoria 0.25% 300 3-11 Silvestre Nerve l mL pump 300 00:02: Block, 5 He rmann mL 00 mL/hr, start date 12/30/15 18:02:00 MEDICAL DOCTOR MD promethazin No Kyle K 12.5 mg = Memoria e 3-11 Silvestre 0.5 mL, l 00:02: Injection, Denis 00 IM, Once PRN for severe nausea, first dose 12/30/15 18:02:00 MEDICAL DOCTOR MD albuterol No Kyle K 2.5 mg = 3 Memoria 2.5 mg/3 mL 3-11 Silvestre mL, Soln, l (0.083%) 00:02: NEB, Once Herm connie inhalation 00 PRN for solution wheezing, first dose 12/30/15 18:02:00 MEDICAL DOCTOR MD Demerol HCl No Kyle K 12.5 mg = Memoria 3-11 Silvestre 0.25 mL, l 00:02: Injection, Philip 00 IV Push, Once PRN for shivers, first dose 12/30/15 18:02:00 MEDICAL DOCTOR MD ondansetron No Kyle K 4 mg = 2 Memoria 3-11 Silvestre mL, l 00:02: Injection, Philip 00 IV Push, q15min PRN for nausea/vom iting, order duration: 2 doses, first dose 12/30/15 18:02:00 MEDICAL DOCTOR MD, stop date Limited # of times Dilaudid No Kyle K 0.5 mg = Mem oria 3-11 Silvestre 0.25 mL, l 00:02: Injection, IV Push, q10min PRN for pain severe (7-10), first dose 12/30/15 18:02:00 MEDICAL DOCTOR MD diphenhydrA No Kyle K 25 mg = M emoria MINE 3-11 Silvestre 0.5 mL, l 00:02: Injection, IV Push, Once PRN for itching, first dose 12/30/15 18:02:00 MEDICAL DOCTOR MD LR 1,000 mL No Kyle K 1,000 mL, Memoria 3-11 Silvestre IV, 75 l 00:02: mL/hr, start date 12/30/15 18:02:00 MEDICAL DOCTOR MD Saline Lock No Kyle K 10 mL, Me moria Flush 3-11 Silvestre Soln, IV l 00:02: Push, As Indicated PRN for flush, first dose 12/30/15 18:02:00 MEDICAL DOCTOR MD Bupivacaine No Kyle K 300 mL, M emoria 0.25% 300 3-11 Silvestre Nerve l mL pump 300 00:02: Block, 5 He rmann mL 00 mL/hr, start date 12/30/15 18:02:00 MEDICAL DOCTOR MD [facility] [place] Perico 1,000 mL, Memori a Medication 3-10 Wheat Soln-IV, l 23:42: IV, Once, first dose 12/30/15 17:42:00 MEDICAL DOCTOR MD, stop date 12/30/15 17:42:00 MEDICAL DOCTOR MD [facility] [place] Perico 1,000 mL, Memori a Medication 3-10 Wheat Soln-IV, l 23:42: IV, Once, first dose 12/30/15 17:42:00 MEDICAL DOCTOR MD, stop date 12/30/15 17:42:00 MEDICAL DOCTOR MD [facility] [place] Perico 1,000 mL, Memori a Medication 3-10 Wheat Soln-IV, l 23:42: IV, Once, first dose 12/30/15 17:42:00 MEDICAL DOCTOR MD, stop date 12/30/15 17:42:00 MEDICAL DOCTOR MD [facility] [place] 0 No Perico 1,000 mL, Memori a Medication 3-10 Wheat Soln-IV, l 23:42: IV, Once, Denis 00 first dose 12/30/15 17:42:00 MEDICAL DOCTOR MD, stop date 12/30/15 17:42:00 MEDICAL DOCTOR MD [facility] [place] Perico 1,000 mL, Memori a Medication 3-10 Wheat Soln-IV, l 23:42: IV, Once, Philip 00 first dose 12/30/15 17:42:00 MEDICAL DOCTOR MD, stop date 12/30/15 17:42:00 MEDICAL DOCTOR MD [facility] [place] Perico 1,000 mL, Memori a Medication 3-10 Wheat Soln-IV, l 23:42: IV, Once, Philip 00 first dose 12/30/15 17:42:00 MEDICAL DOCTOR MD, stop date 12/30/15 17:42:00 MEDICAL DOCTOR MD [facility] [place] Perico 1,000 mL, Memori a Medication 3-10 Wheat Soln-IV, l 23:42: IV, Once, Denis 00 first dose 12/30/15 17:42:00 MEDICAL DOCTOR MD, stop date 12/30/15 17:42:00 MEDICAL DOCTOR MD [facility] [place] No Perico 1,000 mL, Memori a Medication 3-10 Wheat Soln-IV, l 23:42: IV, Once, Denis 00 first dose 12/30/15 17:42:00 MEDICAL DOCTOR MD, stop date 12/30/15 17:42:00 MEDICAL DOCTOR MD [facility] [place] 0 No Perico 1,000 mL, Memori a Medication 3-10 Wheat Soln-IV, l 23:42: IV, Once, Denis 00 first dose 12/30/15 17:42:00 MEDICAL DOCTOR MD, stop date 12/30/15 17:42:00 MEDICAL DOCTOR MD fentaNYL 2015-0 No Perico 25 mcg = Mem oria 3-10 Wheat 0.5 mL, l 23:20: Injection, Denis 00 IV, Once, first dose 12/30/15 17:20:00 MEDICAL DOCTOR MD, stop date 12/30/15 17:20:00 MEDICAL DOCTOR MD fentaNYL 2015-0 No Perico 25 mcg = Mem oria 3-10 Wheat 0.5 mL, l 23:20: Injection, Philip 00 IV, Once, first dose 12/30/15 17:20:00 MEDICAL DOCTOR MD, stop date 12/30/15 17:20:00 MEDICAL DOCTOR MD fentaNYL No Perico 25 mcg = Mem oria 3-10 Wheat 0.5 mL, l 23:20: Injection, Philip 00 IV, Once, first dose 12/30/15 17:20:00 MEDICAL DOCTOR MD, stop date 12/30/15 17:20:00 MEDICAL DOCTOR MD fentaNYL No Perico 25 mcg = Mem oria 3-10 Wheat 0.5 mL, l 23:20: Injection, Philip 00 IV, Once, first dose 12/30/15 17:20:00 MEDICAL DOCTOR MD, stop date 12/30/15 17:20:00 MEDICAL DOCTOR MD fentaNYL No Perico 25 mcg = Mem oria 3-10 Wheat 0.5 mL, l 23:20: Injection, Denis 00 IV, Once, first dose 12/30/15 17:20:00 MEDICAL DOCTOR MD, stop date 12/30/15 17:20:00 MEDICAL DOCTOR MD fentaNYL No Perico 25 mcg = Mem oria 3-10 Wheat 0.5 mL, l 23:20: Injection, Philip 00 IV, Once, first dose 12/30/15 17:20:00 MEDICAL DOCTOR MD, stop date 12/30/15 17:20:00 MEDICAL DOCTOR MD fentaNYL No Perico 25 mcg = Mem oria 3-10 Wheat 0.5 mL, l 23:20: Injection, Philip 00 IV, Once, first dose 12/30/15 17:20:00 MEDICAL DOCTOR MD, stop date 12/30/15 17:20:00 MEDICAL DOCTOR MD fentaNYL No Perico 25 mcg = Mem oria 3-10 Wheat 0.5 mL, l 23:20: Injection, Denis 00 IV, Once, first dose 12/30/15 17:20:00 MEDICAL DOCTOR MD, stop date 12/30/15 17:20:00 MEDICAL DOCTOR MD fentaNYL No Perico 25 mcg = Mem oria 3-10 Wheat 0.5 mL, l 23:20: Injection, Philip 00 IV, Once, first dose 12/30/15 17:20:00 MEDICAL DOCTOR MD, stop date 12/30/15 17:20:00 MEDICAL DOCTOR MD ondansetron 2016-0 No Perico 4 mg = 2 Memoria 3-10 Wheat mL, l 23:03: Injection, Philip 00 IV, Once, first dose 12/30/15 17:03:00 MEDICAL DOCTOR MD, stop date 12/30/15 17:03:00 MEDICAL DOCTOR MD ondansetron 2016-0 No Perico 4 mg = 2 Memoria 3-10 Wheat mL, l 23:03: Injection, Denis 00 IV, Once, first dose 12/30/15 17:03:00 MEDICAL DOCTOR MD, stop date 12/30/15 17:03:00 MEDICAL DOCTOR MD ondansetron 2016-0 No Perico 4 mg = 2 Memoria 3-10 Wheat mL, l 23:03: Injection, Denis 00 IV, Once, first dose 12/30/15 17:03:00 MEDICAL DOCTOR MD, stop date 12/30/15 17:03:00 MEDICAL DOCTOR MD ondansetron 2016-0 No Perico 4 mg = 2 Memoria 3-10 Wheat mL, l 23:03: Injection, Denis 00 IV, Once, first dose 12/30/15 17:03:00 MEDICAL DOCTOR MD, stop date 12/30/15 17:03:00 MEDICAL DOCTOR MD ondansetron 2016-0 No Perico 4 mg = 2 Memoria 3-10 Wheat mL, l 23:03: Injection, Denis 00 IV, Once, first dose 12/30/15 17:03:00 MEDICAL DOCTOR MD, stop date 12/30/15 17:03:00 MEDICAL DOCTOR MD ondansetron 2016-0 No Perico 4 mg = 2 Memoria 3-10 Wheat mL, l 23:03: Injection, Philip 00 IV, Once, first dose 12/30/15 17:03:00 MEDICAL DOCTOR MD, stop date 12/30/15 17:03:00 MEDICAL DOCTOR MD ondansetron 2016-0 No Perico 4 mg = 2 Memoria 3-10 Wheat mL, l 23:03: Injection, Denis 00 IV, Once, first dose 12/30/15 17:03:00 MEDICAL DOCTOR MD, stop date 12/30/15 17:03:00 MEDICAL DOCTOR MD ondansetron 2016-0 No Perico 4 mg = 2 Memoria 3-10 Wheat mL, l 23:03: Injection, Denis 00 IV, Once, first dose 12/30/15 17:03:00 MEDICAL DOCTOR MD, stop date 12/30/15 17:03:00 MEDICAL DOCTOR MD ondansetron 2016-0 No Perico 4 mg = 2 Memoria 3-10 Wheat mL, l 23:03: Injection, Denis 00 IV, Once, first dose 12/30/15 17:03:00 MEDICAL DOCTOR MD, stop date 12/30/15 17:03:00 MEDICAL DOCTOR MD fentaNYL 2016-0 No Perico 25 mcg = Mem oria 3-10 Wheat 0.5 mL, l 23:00: Injection, Denis 00 IV, Once, first dose 12/30/15 17:00:00 MEDICAL DOCTOR MD, stop date 12/30/15 17:00:00 MEDICAL DOCTOR MD fentaNYL 2016-0 No Perico 25 mcg = Mem oria 3-10 Wheat 0.5 mL, l 23:00: Injection, Philip 00 IV, Once, first dose 12/30/15 17:00:00 MEDICAL DOCTOR MD, stop date 12/30/15 17:00:00 MEDICAL DOCTOR MD fentaNYL 2016-0 No Perico 25 mcg = Mem oria 3-10 Wheat 0.5 mL, l 23:00: Injection, Denis 00 IV, Once, first dose 12/30/15 17:00:00 MEDICAL DOCTOR MD, stop date 12/30/15 17:00:00 MEDICAL DOCTOR MD fentaNYL 2016-0 No Perico 25 mcg = Mem oria 3-10 Wheat 0.5 mL, l 23:00: Injection, Philip 00 IV, Once, first dose 12/30/15 17:00:00 MEDICAL DOCTOR MD, stop date 12/30/15 17:00:00 MEDICAL DOCTOR MD fentaNYL 2016-0 No Perico 25 mcg = Mem oria 3-10 Wheat 0.5 mL, l 23:00: Injection, Philip 00 IV, Once, first dose 12/30/15 17:00:00 MEDICAL DOCTOR MD, stop date 12/30/15 17:00:00 MEDICAL DOCTOR MD fentaNYL 2016-0 No Perico 25 mcg = Mem oria 3-10 Wheat 0.5 mL, l 23:00: Injection, Denis 00 IV, Once, first dose 12/30/15 17:00:00 MEDICAL DOCTOR MD, stop date 12/30/15 17:00:00 MEDICAL DOCTOR MD fentaNYL 2016-0 No Perico 25 mcg = Mem oria 3-10 Wheat 0.5 mL, l 23:00: Injection, Philip 00 IV, Once, first dose 12/30/15 17:00:00 MEDICAL DOCTOR MD, stop date 12/30/15 17:00:00 MEDICAL DOCTOR MD fentaNYL 2015-0 No Perico 25 mcg = Mem oria 3-10 Wheat 0.5 mL, l 23:00: Injection, Philip 00 IV, Once, first dose 12/30/15 17:00:00 MEDICAL DOCTOR MD, stop date 12/30/15 17:00:00 MEDICAL DOCTOR MD fentaNYL 2015-0 No Perico 25 mcg = Mem oria 3-10 Wheat 0.5 mL, l 23:00: Injection, Philip 00 IV, Once, first dose 12/30/15 17:00:00 MEDICAL DOCTOR MD, stop date 12/30/15 17:00:00 MEDICAL DOCTOR MD fentaNYL 2015-0 No Perico 25 mcg = Mem oria 3-10 Wheat 0.5 mL, l 22:48: Injection, Philip 00 IV, Once, first dose 12/30/15 16:48:00 MEDICAL DOCTOR MD, stop date 12/30/15 16:48:00 MEDICAL DOCTOR MD fentaNYL 2015-0 No Perico 25 mcg = Mem oria 3-10 Wheat 0.5 mL, l 22:48: Injection, Denis 00 IV, Once, first dose 12/30/15 16:48:00 MEDICAL DOCTOR MD, stop date 12/30/15 16:48:00 MEDICAL DOCTOR MD fentaNYL 2015-0 No Perico 25 mcg = Mem oria 3-10 Wheat 0.5 mL, l 22:48: Injection, Denis 00 IV, Once, first dose 12/30/15 16:48:00 MEDICAL DOCTOR MD, stop date 12/30/15 16:48:00 MEDICAL DOCTOR MD fentaNYL 2015-0 No Perico 25 mcg = Mem oria 3-10 Wheat 0.5 mL, l 22:48: Injection, Denis 00 IV, Once, first dose 12/30/15 16:48:00 MEDICAL DOCTOR MD, stop date 12/30/15 16:48:00 MEDICAL DOCTOR MD fentaNYL 2015-0 No Perico 25 mcg = Mem oria 3-10 Wheat 0.5 mL, l 22:48: Injection, Philip 00 IV, Once, first dose 12/30/15 16:48:00 MEDICAL DOCTOR MD, stop date 12/30/15 16:48:00 MEDICAL DOCTOR MD fentaNYL 2015-0 No Perico 25 mcg = Mem oria 3-10 Wheat 0.5 mL, l 22:48: Injection, Denis 00 IV, Once, first dose 12/30/15 16:48:00 MEDICAL DOCTOR MD, stop date 12/30/15 16:48:00 MEDICAL DOCTOR MD fentaNYL 2016-0 No Perico 25 mcg = Mem oria 3-10 Wheat 0.5 mL, l 22:48: Injection, Philip 00 IV, Once, first dose 12/30/15 16:48:00 MEDICAL DOCTOR MD, stop date 12/30/15 16:48:00 MEDICAL DOCTOR MD fentaNYL 2015-0 No Perico 25 mcg = Mem oria 3-10 Wheat 0.5 mL, l 22:48: Injection, Denis 00 IV, Once, first dose 12/30/15 16:48:00 MEDICAL DOCTOR MD, stop date 12/30/15 16:48:00 MEDICAL DOCTOR MD fentaNYL 2015-0 No Perico 25 mcg = Mem oria 3-10 Wheat 0.5 mL, l 22:48: Injection, Denis 00 IV, Once, first dose 12/30/15 16:48:00 MEDICAL DOCTOR MD, stop date 12/30/15 16:48:00 MEDICAL DOCTOR MD fentaNYL 2015-0 No Percio 25 mcg = Mem oria 3-10 Wheat 0.5 mL, l 22:37: Injection, Philip 00 IV, Once, first dose 12/30/15 16:37:00 MEDICAL DOCTOR MD, stop date 12/30/15 16:37:00 MEDICAL DOCTOR MD fentaNYL 2015-0 No Perico 25 mcg = Mem oria 3-10 Wheat 0.5 mL, l 22:37: Injection, Denis 00 IV, Once, first dose 12/30/15 16:37:00 MEDICAL DOCTOR MD, stop date 12/30/15 16:37:00 MEDICAL DOCTOR MD fentaNYL 2015-0 No Perico 25 mcg = Mem oria 3-10 Wheat 0.5 mL, l 22:37: Injection, Denis 00 IV, Once, first dose 12/30/15 16:37:00 MEDICAL DOCTOR MD, stop date 12/30/15 16:37:00 MEDICAL DOCTOR MD fentaNYL 2015-0 No Perico 25 mcg = Mem oria 3-10 Wheat 0.5 mL, l 22:37: Injection, Denis 00 IV, Once, first dose 12/30/15 16:37:00 MEDICAL DOCTOR MD, stop date 12/30/15 16:37:00 MEDICAL DOCTOR MD fentaNYL 2015-0 No Perico 25 mcg = Mem oria 3-10 Wheat 0.5 mL, l 22:37: Injection, Denis 00 IV, Once, first dose 12/30/15 16:37:00 MEDICAL DOCTOR MD, stop date 12/30/15 16:37:00 MEDICAL DOCTOR MD fentaNYL 2016-0 No Perico 25 mcg = Mem oria 3-10 Wheat 0.5 mL, l 22:37: Injection, Denis 00 IV, Once, first dose 12/30/15 16:37:00 MEDICAL DOCTOR MD, stop date 12/30/15 16:37:00 MEDICAL DOCTOR MD fentaNYL 2016-0 No Perico 25 mcg = Mem oria 3-10 Wheat 0.5 mL, l 22:37: Injection, Denis 00 IV, Once, first dose 12/30/15 16:37:00 MEDICAL DOCTOR MD, stop date 12/30/15 16:37:00 MEDICAL DOCTOR MD fentaNYL 2016-0 No Perico 25 mcg = Mem oria 3-10 Wheat 0.5 mL, l 22:37: Injection, Denis 00 IV, Once, first dose 12/30/15 16:37:00 MEDICAL DOCTOR MD, stop date 12/30/15 16:37:00 MEDICAL DOCTOR MD fentaNYL 2016-0 No Perico 25 mcg = Mem oria 3-10 Wheat 0.5 mL, l 22:37: Injection, Philip 00 IV, Once, first dose 12/30/15 16:37:00 MEDICAL DOCTOR MD, stop date 12/30/15 16:37:00 MEDICAL DOCTOR MD dexamethaso 2016-0 No Perico 8 mg = 2 Memoria ne 3-10 Wheat mL, l 22:23: Injection, Denis 00 IV, Once, first dose 12/30/15 16:23:00 MEDICAL DOCTOR MD, stop date 12/30/15 16:23:00 MEDICAL DOCTOR MD dexamethaso 2016-0 No Perico 8 mg = 2 Memoria ne 3-10 Wheat mL, l 22:23: Injection, Denis 00 IV, Once, first dose 12/30/15 16:23:00 MEDICAL DOCTOR MD, stop date 12/30/15 16:23:00 MEDICAL DOCTOR MD dexamethaso 2016-0 No Perico 8 mg = 2 Memoria ne 3-10 Wheat mL, l 22:23: Injection, Denis 00 IV, Once, first dose 12/30/15 16:23:00 MEDICAL DOCTOR MD, stop date 12/30/15 16:23:00 MEDICAL DOCTOR MD dexamethaso 2016-0 No Perico 8 mg = 2 Memoria ne 3-10 Wheat mL, l 22:23: Injection, Philip 00 IV, Once, first dose 12/30/15 16:23:00 MEDICAL DOCTOR MD, stop date 12/30/15 16:23:00 MEDICAL DOCTOR MD dexamethaso 2016-0 No Perico 8 mg = 2 Memoria ne 3-10 Wheat mL, l 22:23: Injection, Denis 00 IV, Once, first dose 12/30/15 16:23:00 MEDICAL DOCTOR MD, stop date 12/30/15 16:23:00 MEDICAL DOCTOR MD dexamethaso 2016-0 No Perico 8 mg = 2 Memoria ne 3-10 Wheat mL, l 22:23: Injection, Denis 00 IV, Once, first dose 12/30/15 16:23:00 MEDICAL DOCTOR MD, stop date 12/30/15 16:23:00 MEDICAL DOCTOR MD dexamethaso 2016-0 No Perico 8 mg = 2 Memoria ne 3-10 Wheat mL, l 22:23: Injection, Denis 00 IV, Once, first dose 12/30/15 16:23:00 MEDICAL DOCTOR MD, stop date 12/30/15 16:23:00 MEDICAL DOCTOR MD dexamethaso 2016-0 No Perico 8 mg = 2 Memoria ne 3-10 Wheat mL, l 22:23: Injection, Philip 00 IV, Once, first dose 12/30/15 16:23:00 MEDICAL DOCTOR MD, stop date 12/30/15 16:23:00 MEDICAL DOCTOR MD dexamethaso 2016-0 No Perico 8 mg = 2 Memoria ne 3-10 Wheat mL, l 22:23: Injection, Denis 00 IV, Once, first dose 12/30/15 16:23:00 MEDICAL DOCTOR MD, stop date 12/30/15 16:23:00 MEDICAL DOCTOR MD Misc 2016-0 No Perico 1,000 mL, Memori a Medication 3-10 Wheat Soln-IV, l 22:21: IV, Once, Denis 00 first dose 12/30/15 16:21:00 MEDICAL DOCTOR MD, stop date 12/30/15 16:21:00 MEDICAL DOCTOR MD Misc 2016-0 No Perico 1,000 mL, Memori a Medication 3-10 Wheat Soln-IV, l 22:21: IV, Once, Philip 00 first dose 12/30/15 16:21:00 MEDICAL DOCTOR MD, stop date 12/30/15 16:21:00 MEDICAL DOCTOR MD [facility] [place]-0 No Perico 1,000 mL, Memori a Medication 3-10 Wheat Soln-IV, l 22:21: IV, Once, Denis 00 first dose 12/30/15 16:21:00 MEDICAL DOCTOR MD, stop date 12/30/15 16:21:00 MEDICAL DOCTOR MD [facility] [place]-0 No Perico 1,000 mL, Memori a Medication 3-10 Wheat Soln-IV, l 22:21: IV, Once, Denis 00 first dose 12/30/15 16:21:00 MEDICAL DOCTOR MD, stop date 12/30/15 16:21:00 MEDICAL DOCTOR MD [facility] [place]-0 No Perico 1,000 mL, Memori a Medication 3-10 Wheat Soln-IV, l 22:21: IV, Once, Denis 00 first dose 12/30/15 16:21:00 MEDICAL DOCTOR MD, stop date 12/30/15 16:21:00 MEDICAL DOCTOR MD [facility] [place] 0 No Perico 1,000 mL, Memori a Medication 3-10 Wheat Soln-IV, l 22:21: IV, Once, Denis 00 first dose 12/30/15 16:21:00 MEDICAL DOCTOR MD, stop date 12/30/15 16:21:00 MEDICAL DOCTOR MD [facility] [place]0 No Perico 1,000 mL, Memori a Medication 3-10 Wheat Soln-IV, l 22:21: IV, Once, Denis 00 first dose 12/30/15 16:21:00 MEDICAL DOCTOR MD, stop date 12/30/15 16:21:00 MEDICAL DOCTOR MD [facility] [place] 0 No Percio 1,000 mL, Memori a Medication 3-10 Wheat Soln-IV, l 22:21: IV, Once, Philip 00 first dose 12/30/15 16:21:00 MEDICAL DOCTOR MD, stop date 12/30/15 16:21:00 MEDICAL DOCTOR MD [facility] [place] 2015-0 No Eprico 1,000 mL, Memori a Medication 3-10 Wheat Soln-IV, l 22:21: IV, Once, Denis 00 first dose 12/30/15 16:21:00 MEDICAL DOCTOR MD, stop date 12/30/15 16:21:00 MEDICAL DOCTOR MD clindamycin 2015-0 Yes Perico 928.125 M emoria 3-10 Wheat mg, l 22:18: Soln-IV, Philip 00 IV, Once, first dose 12/30/15 16:18:00 MEDICAL DOCTOR MD, stop date 12/30/15 16:18:00 MEDICAL DOCTOR MD clindamycin 2015-0 Yes Perico 928.125 M emoria 3-10 Wheat mg, l 22:18: Soln-IV, Denis 00 IV, Once, first dose 12/30/15 16:18:00 MEDICAL DOCTOR MD, stop date 12/30/15 16:18:00 MEDICAL DOCTOR MD clindamycin 2015-0 Yes Perico 928.125 M emoria 3-10 Wheat mg, l 22:18: Soln-IV, Philip 00 IV, Once, first dose 12/30/15 16:18:00 MEDICAL DOCTOR MD, stop date 12/30/15 16:18:00 MEDICAL DOCTOR MD clindamycin 2015-0 Yes Perico 928.125 M emoria 3-10 Wheat mg, l 22:18: Soln-IV, Denis 00 IV, Once, first dose 12/30/15 16:18:00 MEDICAL DOCTOR MD, stop date 12/30/15 16:18:00 MEDICAL DOCTOR MD clindamycin 2015-0 Yes Perico 928.125 M emoria 3-10 Wheat mg, l 22:18: Soln-IV, Philip 00 IV, Once, first dose 12/30/15 16:18:00 MEDICAL DOCTOR MD, stop date 12/30/15 16:18:00 MEDICAL DOCTOR MD clindamycin 2015-0 Yes Perico 928.125 M emoria 3-10 Wheat mg, l 22:18: Soln-IV, Philip 00 IV, Once, first dose 12/30/15 16:18:00 MEDICAL DOCTOR MD, stop date 12/30/15 16:18:00 MEDICAL DOCTOR MD clindamycin 2015-0 Yes Perico 928.125 M emoria 3-10 Wheat mg, l 22:18: Soln-IV, Denis 00 IV, Once, first dose 12/30/15 16:18:00 MEDICAL DOCTOR MD, stop date 12/30/15 16:18:00 MEDICAL DOCTOR MD clindamycin 2015-0 Yes Perico 928.125 M emoria 3-10 Wheat mg, l 22:18: Soln-IV, Denis 00 IV, Once, first dose 12/30/15 16:18:00 MEDICAL DOCTOR MD, stop date 12/30/15 16:18:00 MEDICAL DOCTOR MD clindamycin 2015-0 Yes Perico 928.125 M emoria 3-10 Wheat mg, l 22:18: Soln-IV, Philip 00 IV, Once, first dose 12/30/15 16:18:00 MEDICAL DOCTOR MD, stop date 12/30/15 16:18:00 MEDICAL DOCTOR MD fentaNYL No Perico 25 mcg = Mem oria 3-10 Wheat 0.5 mL, l 22:05: Injection, Philip 00 IV, Once, first dose 12/30/15 16:05:00 MEDICAL DOCTOR MD, stop date 12/30/15 16:05:00 MEDICAL DOCTOR MD midazolam No Perico 0.5 mg = Me moria 3-10 Wheat 0.5 mL, l 22:05: Injection, Denis 00 IV, Once, first dose 12/30/15 16:05:00 MEDICAL DOCTOR MD, stop date 12/30/15 16:05:00 MEDICAL DOCTOR MD fentaNYL No Perico 25 mcg = Mem oria 3-10 Wheat 0.5 mL, l 22:05: Injection, Denis 00 IV, Once, first dose 12/30/15 16:05:00 MEDICAL DOCTOR MD, stop date 12/30/15 16:05:00 MEDICAL DOCTOR MD midazolam No Perico 0.5 mg = Me moria 3-10 Wheat 0.5 mL, l 22:05: Injection, Denis 00 IV, Once, first dose 12/30/15 16:05:00 MEDICAL DOCTOR MD, stop date 12/30/15 16:05:00 MEDICAL DOCTOR MD fentaNYL No Perico 25 mcg = Mem oria 3-10 Wheat 0.5 mL, l 22:05: Injection, Denis 00 IV, Once, first dose 12/30/15 16:05:00 MEDICAL DOCTOR MD, stop date 12/30/15 16:05:00 MEDICAL DOCTOR MD midazolam No Perico 0.5 mg = Me moria 3-10 Wheat 0.5 mL, l 22:05: Injection, Denis 00 IV, Once, first dose 12/30/15 16:05:00 MEDICAL DOCTOR MD, stop date 12/30/15 16:05:00 MEDICAL DOCTOR MD fentaNYL No Perico 25 mcg = Mem oria 3-10 Wheat 0.5 mL, l 22:05: Injection, Denis 00 IV, Once, first dose 12/30/15 16:05:00 MEDICAL DOCTOR MD, stop date 12/30/15 16:05:00 MEDICAL DOCTOR MD midazolam 2015-0 No Perico 0.5 mg = Me moria 3-10 Wheat 0.5 mL, l 22:05: Injection, Philip 00 IV, Once, first dose 12/30/15 16:05:00 MEDICAL DOCTOR MD, stop date 12/30/15 16:05:00 MEDICAL DOCTOR MD fentaNYL 2015-0 No Perico 25 mcg = Mem oria 3-10 Wheat 0.5 mL, l 22:05: Injection, Philip 00 IV, Once, first dose 12/30/15 16:05:00 MEDICAL DOCTOR MD, stop date 12/30/15 16:05:00 MEDICAL DOCTOR MD midazolam 2015-0 No Perico 0.5 mg = Me moria 3-10 Wheat 0.5 mL, l 22:05: Injection, Philip 00 IV, Once, first dose 12/30/15 16:05:00 MEDICAL DOCTOR MD, stop date 12/30/15 16:05:00 MEDICAL DOCTOR MD fentaNYL 2015-0 No Perico 25 mcg = Mem oria 3-10 Wheat 0.5 mL, l 22:05: Injection, Philip 00 IV, Once, first dose 12/30/15 16:05:00 MEDICAL DOCTOR MD, stop date 12/30/15 16:05:00 MEDICAL DOCTOR MD midazolam 2016-0 No Perico 0.5 mg = Me moria 3-10 Wheat 0.5 mL, l 22:05: Injection, Philip 00 IV, Once, first dose 12/30/15 16:05:00 MEDICAL DOCTOR MD, stop date 12/30/15 16:05:00 MEDICAL DOCTOR MD fentaNYL 2015-0 No Perico 25 mcg = Mem oria 3-10 Wheat 0.5 mL, l 22:05: Injection, Denis 00 IV, Once, first dose 12/30/15 16:05:00 MEDICAL DOCTOR MD, stop date 12/30/15 16:05:00 MEDICAL DOCTOR MD midazolam 2015-0 No Perico 0.5 mg = Me moria 3-10 Wheat 0.5 mL, l 22:05: Injection, Philip 00 IV, Once, first dose 12/30/15 16:05:00 MEDICAL DOCTOR MD, stop date 12/30/15 16:05:00 MEDICAL DOCTOR MD fentaNYL 2015-0 No Perico 25 mcg = Mem oria 3-10 Wheat 0.5 mL, l 22:05: Injection, Philip 00 IV, Once, first dose 12/30/15 16:05:00 MEDICAL DOCTOR MD, stop date 12/30/15 16:05:00 MEDICAL DOCTOR MD midazolam 2015- No Perico 0.5 mg = Me moria 3-10 Wheat 0.5 mL, l 22:05: Injection, Philip 00 IV, Once, first dose 12/30/15 16:05:00 MEDICAL DOCTOR MD, stop date 12/30/15 16:05:00 MEDICAL DOCTOR MD fentaNYL 2015- No Perico 25 mcg = Mem oria 3-10 Wheat 0.5 mL, l 22:05: Injection, Philip 00 IV, Once, first dose 12/30/15 16:05:00 MEDICAL DOCTOR MD, stop date 12/30/15 16:05:00 MEDICAL DOCTOR MD midazolam 2015- No Perico 0.5 mg = Me moria 3-10 Wheat 0.5 mL, l 22:05: Injection, Philip 00 IV, Once, first dose 12/30/15 16:05:00 MEDICAL DOCTOR MD, stop date 12/30/15 16:05:00 MEDICAL DOCTOR MD lidocaine 2015-0 No Perico 3 mL, Memor ia 3-10 Wheat Injection, l 21:58: IV, Once, Denis 00 first dose 12/30/15 15:58:00 MEDICAL DOCTOR MD, stop date 12/30/15 15:58:00 MEDICAL DOCTOR MD propofol No Perico 120 mg = Mem oria 3-10 Wheat 12 mL, l 21:58: Emulsion, Denis 00 IV, Once, first dose 12/30/15 15:58:00 MEDICAL DOCTOR MD, stop date 12/30/15 15:58:00 MEDICAL DOCTOR MD lidocaine 2015-0 No Perico 3 mL, Memor ia 3-10 Wheat Injection, l 21:58: IV, Once, Philip 00 first dose 12/30/15 15:58:00 MEDICAL DOCTOR MD, stop date 12/30/15 15:58:00 MEDICAL DOCTOR MD propofol 2015- No Perico 120 mg = Mem oria 3-10 Wheat 12 mL, l 21:58: Emulsion, Philip 00 IV, Once, first dose 12/30/15 15:58:00 MEDICAL DOCTOR MD, stop date 12/30/15 15:58:00 MEDICAL DOCTOR MD lidocaine 2015-0 No Perico 3 mL, Memor ia 3-10 Wheat Injection, l 21:58: IV, Once, Denis 00 first dose 12/30/15 15:58:00 MEDICAL DOCTOR MD, stop date 12/30/15 15:58:00 MEDICAL DOCTOR MD propofol 2015- No Perico 120 mg = Mem oria 3-10 Wheat 12 mL, l 21:58: Emulsion, Denis 00 IV, Once, first dose 12/30/15 15:58:00 MEDICAL DOCTOR MD, stop date 12/30/15 15:58:00 MEDICAL DOCTOR MD lidocaine No Perico 3 mL, Memor ia 3-10 Wheat Injection, l 21:58: IV, Once, Philip 00 first dose 12/30/15 15:58:00 MEDICAL DOCTOR MD, stop date 12/30/15 15:58:00 MEDICAL DOCTOR MD propofol No Perico 120 mg = Mem oria 3-10 Wheat 12 mL, l 21:58: Emulsion, Denis 00 IV, Once, first dose 12/30/15 15:58:00 MEDICAL DOCTOR MD, stop date 12/30/15 15:58:00 MEDICAL DOCTOR MD lidocaine No Perico 3 mL, Memor ia 3-10 Wheat Injection, l 21:58: IV, Once, Denis 00 first dose 12/30/15 15:58:00 MEDICAL DOCTOR MD, stop date 12/30/15 15:58:00 MEDICAL DOCTOR MD propofol 2015- No Perico 120 mg = Mem oria 3-10 Wheat 12 mL, l 21:58: Emulsion, Denis 00 IV, Once, first dose 12/30/15 15:58:00 MEDICAL DOCTOR MD, stop date 12/30/15 15:58:00 MEDICAL DOCTOR MD lidocaine No Perico 3 mL, Memor ia 3-10 Wheat Injection, l 21:58: IV, Once, Denis 00 first dose 12/30/15 15:58:00 MEDICAL DOCTOR MD, stop date 12/30/15 15:58:00 MEDICAL DOCTOR MD propofol 2015- No Perico 120 mg = Mem oria 3-10 Wheat 12 mL, l 21:58: Emulsion, Denis 00 IV, Once, first dose 12/30/15 15:58:00 MEDICAL DOCTOR MD, stop date 12/30/15 15:58:00 MEDICAL DOCTOR MD lidocaine 2015-0 No Perico 3 mL, Memor ia 3-10 Wheat Injection, l 21:58: IV, Once, Denis 00 first dose 12/30/15 15:58:00 MEDICAL DOCTOR MD, stop date 12/30/15 15:58:00 MEDICAL DOCTOR MD propofol No Perico 120 mg = Mem oria 3-10 Wheat 12 mL, l 21:58: Emulsion, Philip 00 IV, Once, first dose 12/30/15 15:58:00 MEDICAL DOCTOR MD, stop date 12/30/15 15:58:00 MEDICAL DOCTOR MD lidocaine No Perico 3 mL, Memor ia 3-10 Wheat Injection, l 21:58: IV, Once, Philip 00 first dose 12/30/15 15:58:00 MEDICAL DOCTOR MD, stop date 12/30/15 15:58:00 MEDICAL DOCTOR MD propofol No Perico 120 mg = Mem oria 3-10 Wheat 12 mL, l 21:58: Emulsion, Philip 00 IV, Once, first dose 12/30/15 15:58:00 MEDICAL DOCTOR MD, stop date 12/30/15 15:58:00 MEDICAL DOCTOR MD lidocaine No Perico 3 mL, Memor ia 3-10 Wheat Injection, l 21:58: IV, Once, Denis 00 first dose 12/30/15 15:58:00 MEDICAL DOCTOR MD, stop date 12/30/15 15:58:00 MEDICAL DOCTOR MD propofol No Perico 120 mg = Mem oria 3-10 Wheat 12 mL, l 21:58: Emulsion, Philip 00 IV, Once, first dose 12/30/15 15:58:00 MEDICAL DOCTOR MD, stop date 12/30/15 15:58:00 MEDICAL DOCTOR MD midazolam No Perico 0.5 mg = Me moria 3-10 Wheat 0.5 mL, l 21:50: Injection, Denis 00 IV, Once, first dose 12/30/15 15:50:00 MEDICAL DOCTOR MD, stop date 12/30/15 15:50:00 MEDICAL DOCTOR MD fentaNYL No Perico 25 mcg = Mem oria 3-10 Wheat 0.5 mL, l 21:50: Injection, Denis 00 IV, Once, first dose 12/30/15 15:50:00 MEDICAL DOCTOR MD, stop date 12/30/15 15:50:00 MEDICAL DOCTOR MD midazolam No Perico 0.5 mg = Me moria 3-10 Wheat 0.5 mL, l 21:50: Injection, Philip 00 IV, Once, first dose 12/30/15 15:50:00 MEDICAL DOCTOR MD, stop date 12/30/15 15:50:00 MEDICAL DOCTOR MD fentaNYL No Perico 25 mcg = Mem oria 3-10 Wheat 0.5 mL, l 21:50: Injection, Philip 00 IV, Once, first dose 12/30/15 15:50:00 MEDICAL DOCTOR MD, stop date 12/30/15 15:50:00 MEDICAL DOCTOR MD midazolam No Perico 0.5 mg = Me moria 3-10 Wheat 0.5 mL, l 21:50: Injection, Denis 00 IV, Once, first dose 12/30/15 15:50:00 MEDICAL DOCTOR MD, stop date 12/30/15 15:50:00 MEDICAL DOCTOR MD fentaNYL No Perico 25 mcg = Mem oria 3-10 Wheat 0.5 mL, l 21:50: Injection, Denis 00 IV, Once, first dose 12/30/15 15:50:00 MEDICAL DOCTOR MD, stop date 12/30/15 15:50:00 MEDICAL DOCTOR MD midazolam No Perico 0.5 mg = Me moria 3-10 Wheat 0.5 mL, l 21:50: Injection, Denis 00 IV, Once, first dose 12/30/15 15:50:00 MEDICAL DOCTOR MD, stop date 12/30/15 15:50:00 MEDICAL DOCTOR MD fentaNYL No Perico 25 mcg = Mem oria 3-10 Wheat 0.5 mL, l 21:50: Injection, Denis 00 IV, Once, first dose 12/30/15 15:50:00 MEDICAL DOCTOR MD, stop date 12/30/15 15:50:00 MEDICAL DOCTOR MD midazolam No Perico 0.5 mg = Me moria 3-10 Wheat 0.5 mL, l 21:50: Injection, Denis 00 IV, Once, first dose 12/30/15 15:50:00 MEDICAL DOCTOR MD, stop date 12/30/15 15:50:00 MEDICAL DOCTOR MD fentaNYL No Perico 25 mcg = Mem oria 3-10 Wheat 0.5 mL, l 21:50: Injection, Denis 00 IV, Once, first dose 12/30/15 15:50:00 MEDICAL DOCTOR MD, stop date 12/30/15 15:50:00 MEDICAL DOCTOR MD midazolam 2015-0 No Perico 0.5 mg = Me moria 3-10 Wheat 0.5 mL, l 21:50: Injection, Denis 00 IV, Once, first dose 12/30/15 15:50:00 MEDICAL DOCTOR MD, stop date 12/30/15 15:50:00 MEDICAL DOCTOR MD fentaNYL 2015-0 No Perico 25 mcg = Mem oria 3-10 Wheat 0.5 mL, l 21:50: Injection, Denis 00 IV, Once, first dose 12/30/15 15:50:00 MEDICAL DOCTOR MD, stop date 12/30/15 15:50:00 MEDICAL DOCTOR MD midazolam 2015-0 No Perico 0.5 mg = Me moria 3-10 Wheat 0.5 mL, l 21:50: Injection, Denis 00 IV, Once, first dose 12/30/15 15:50:00 MEDICAL DOCTOR MD, stop date 12/30/15 15:50:00 MEDICAL DOCTOR MD fentaNYL 2015- No Perico 25 mcg = Mem oria 3-10 Wheat 0.5 mL, l 21:50: Injection, Philip 00 IV, Once, first dose 12/30/15 15:50:00 MEDICAL DOCTOR MD, stop date 12/30/15 15:50:00 MEDICAL DOCTOR MD midazolam 2015-0 No Perico 0.5 mg = Me moria 3-10 Wheat 0.5 mL, l 21:50: Injection, Philip 00 IV, Once, first dose 12/30/15 15:50:00 MEDICAL DOCTOR MD, stop date 12/30/15 15:50:00 MEDICAL DOCTOR MD fentaNYL 2015-0 No Perico 25 mcg = Mem oria 3-10 Wheat 0.5 mL, l 21:50: Injection, Philip 00 IV, Once, first dose 12/30/15 15:50:00 MEDICAL DOCTOR MD, stop date 12/30/15 15:50:00 MEDICAL DOCTOR MD midazolam 2015-0 No Perico 0.5 mg = Me moria 3-10 Wheat 0.5 mL, l 21:50: Injection, Denis 00 IV, Once, first dose 12/30/15 15:50:00 MEDICAL DOCTOR MD, stop date 12/30/15 15:50:00 MEDICAL DOCTOR MD fentaNYL 2015-0 No Perico 25 mcg = Mem oria 3-10 Wheat 0.5 mL, l 21:50: Injection, Philip 00 IV, Once, first dose 12/30/15 15:50:00 MEDICAL DOCTOR MD, stop date 12/30/15 15:50:00 MEDICAL DOCTOR MD midazolam 2016-0 No Perico 0.5 mg = Me moria 3-10 Wheat 0.5 mL, l 21:10: Injection, Philip 00 IV, Once, first dose 12/30/15 15:10:00 MEDICAL DOCTOR MD, stop date 12/30/15 15:10:00 MEDICAL DOCTOR MD fentaNYL 2016-0 No Perico 25 mcg = Mem oria 3-10 Wheat 0.5 mL, l 21:10: Injection, Philip 00 IV, Once, first dose 12/30/15 15:10:00 MEDICAL DOCTOR MD, stop date 12/30/15 15:10:00 MEDICAL DOCTOR MD midazolam 2016-0 No Perico 0.5 mg = Me moria 3-10 Wheat 0.5 mL, l 21:10: Injection, Philip 00 IV, Once, first dose 12/30/15 15:10:00 MEDICAL DOCTOR MD, stop date 12/30/15 15:10:00 MEDICAL DOCTOR MD fentaNYL 2016-0 No Perico 25 mcg = Mem oria 3-10 Wheat 0.5 mL, l 21:10: Injection, Denis 00 IV, Once, first dose 12/30/15 15:10:00 MEDICAL DOCTOR MD, stop date 12/30/15 15:10:00 MEDICAL DOCTOR MD midazolam 2016-0 No Perico 0.5 mg = Me moria 3-10 Wheat 0.5 mL, l 21:10: Injection, Philip 00 IV, Once, first dose 12/30/15 15:10:00 MEDICAL DOCTOR MD, stop date 12/30/15 15:10:00 MEDICAL DOCTOR MD fentaNYL 2016-0 No Perico 25 mcg = Mem oria 3-10 Wheat 0.5 mL, l 21:10: Injection, Denis 00 IV, Once, first dose 12/30/15 15:10:00 MEDICAL DOCTOR MD, stop date 12/30/15 15:10:00 MEDICAL DOCTOR MD midazolam 2016-0 No Perico 0.5 mg = Me moria 3-10 Wheat 0.5 mL, l 21:10: Injection, Philip 00 IV, Once, first dose 12/30/15 15:10:00 MEDICAL DOCTOR MD, stop date 12/30/15 15:10:00 MEDICAL DOCTOR MD fentaNYL 2016-0 No Perico 25 mcg = Mem oria 3-10 Wheat 0.5 mL, l 21:10: Injection, Philip 00 IV, Once, first dose 12/30/15 15:10:00 MEDICAL DOCTOR MD, stop date 12/30/15 15:10:00 MEDICAL DOCTOR MD midazolam 2015-0 No Perico 0.5 mg = Me moria 3-10 Wheat 0.5 mL, l 21:10: Injection, Philip 00 IV, Once, first dose 12/30/15 15:10:00 MEDICAL DOCTOR MD, stop date 12/30/15 15:10:00 MEDICAL DOCTOR MD fentaNYL 2015-0 No Perico 25 mcg = Mem oria 3-10 Wheat 0.5 mL, l 21:10: Injection, Denis 00 IV, Once, first dose 12/30/15 15:10:00 MEDICAL DOCTOR MD, stop date 12/30/15 15:10:00 MEDICAL DOCTOR MD midazolam 2015-0 No Perico 0.5 mg = Me moria 3-10 Wheat 0.5 mL, l 21:10: Injection, Philip 00 IV, Once, first dose 12/30/15 15:10:00 MEDICAL DOCTOR MD, stop date 12/30/15 15:10:00 MEDICAL DOCTOR MD fentaNYL 2015-0 No Perico 25 mcg = Mem oria 3-10 Wheat 0.5 mL, l 21:10: Injection, Denis 00 IV, Once, first dose 12/30/15 15:10:00 MEDICAL DOCTOR MD, stop date 12/30/15 15:10:00 MEDICAL DOCTOR MD midazolam 2016-0 No Perico 0.5 mg = Me moria 3-10 Wheat 0.5 mL, l 21:10: Injection, Philip 00 IV, Once, first dose 12/30/15 15:10:00 MEDICAL DOCTOR MD, stop date 12/30/15 15:10:00 MEDICAL DOCTOR MD fentaNYL 2016-0 No Perico 25 mcg = Mem oria 3-10 Wheat 0.5 mL, l 21:10: Injection, Philip 00 IV, Once, first dose 12/30/15 15:10:00 MEDICAL DOCTOR MD, stop date 12/30/15 15:10:00 MEDICAL DOCTOR MD midazolam 2015-0 No Perico 0.5 mg = Me moria 3-10 Wheat 0.5 mL, l 21:10: Injection, Denis 00 IV, Once, first dose 12/30/15 15:10:00 MEDICAL DOCTOR MD, stop date 12/30/15 15:10:00 MEDICAL DOCTOR MD fentaNYL 2016-0 No Perico 25 mcg = Mem oria 3-10 Wheat 0.5 mL, l 21:10: Injection, Denis 00 IV, Once, first dose 12/30/15 15:10:00 MEDICAL DOCTOR MD, stop date 12/30/15 15:10:00 MEDICAL DOCTOR MD midazolam 2016-0 No Perico 0.5 mg = Me moria 3-10 Wheat 0.5 mL, l 21:10: Injection, Denis 00 IV, Once, first dose 12/30/15 15:10:00 MEDICAL DOCTOR MD, stop date 12/30/15 15:10:00 MEDICAL DOCTOR MD fentaNYL 2015-0 No Perico 25 mcg = Mem oria 3-10 Wheat 0.5 mL, l 21:10: Injection, Denis 00 IV, Once, first dose 12/30/15 15:10:00 MEDICAL DOCTOR MD, stop date 12/30/15 15:10:00 MEDICAL DOCTOR MD fentaNYL 2016-0 No Perico 25 mcg = Mem oria 3-10 Wheat 0.5 mL, l 21:05: Injection, Philip 00 IV, Once, first dose 12/30/15 15:05:00 MEDICAL DOCTOR MD, stop date 12/30/15 15:05:00 MEDICAL DOCTOR MD midazolam 2015-0 No Perico 0.5 mg = Me moria 3-10 Wheat 0.5 mL, l 21:05: Injection, Philip 00 IV, Once, first dose 12/30/15 15:05:00 MEDICAL DOCTOR MD, stop date 12/30/15 15:05:00 MEDICAL DOCTOR MD fentaNYL 2015-0 No Perico 25 mcg = Mem oria 3-10 Wheat 0.5 mL, l 21:05: Injection, Ednis 00 IV, Once, first dose 12/30/15 15:05:00 MEDICAL DOCTOR MD, stop date 12/30/15 15:05:00 MEDICAL DOCTOR MD midazolam 2015-0 No Perico 0.5 mg = Me moria 3-10 Wheat 0.5 mL, l 21:05: Injection, Denis 00 IV, Once, first dose 12/30/15 15:05:00 MEDICAL DOCTOR MD, stop date 12/30/15 15:05:00 MEDICAL DOCTOR MD fentaNYL 2016-0 No Perico 25 mcg = Mem oria 3-10 Wheat 0.5 mL, l 21:05: Injection, Philip 00 IV, Once, first dose 12/30/15 15:05:00 MEDICAL DOCTOR MD, stop date 12/30/15 15:05:00 MEDICAL DOCTOR MD midazolam 2015-0 No Perico 0.5 mg = Me moria 3-10 Wheat 0.5 mL, l 21:05: Injection, Philip 00 IV, Once, first dose 12/30/15 15:05:00 MEDICAL DOCTOR MD, stop date 12/30/15 15:05:00 MEDICAL DOCTOR MD fentaNYL 2016-0 No Perico 25 mcg = Mem oria 3-10 Wheat 0.5 mL, l 21:05: Injection, Philip 00 IV, Once, first dose 12/30/15 15:05:00 MEDICAL DOCTOR MD, stop date 12/30/15 15:05:00 MEDICAL DOCTOR MD midazolam 2015-0 No Perico 0.5 mg = Me moria 3-10 Wheat 0.5 mL, l 21:05: Injection, Philip 00 IV, Once, first dose 12/30/15 15:05:00 MEDICAL DOCTOR MD, stop date 12/30/15 15:05:00 MEDICAL DOCTOR MD fentaNYL 2016-0 No Perico 25 mcg = Mem oria 3-10 Wheat 0.5 mL, l 21:05: Injection, Philip 00 IV, Once, first dose 12/30/15 15:05:00 MEDICAL DOCTOR MD, stop date 12/30/15 15:05:00 MEDICAL DOCTOR MD midazolam 2015-0 No Perico 0.5 mg = Me moria 3-10 Wheat 0.5 mL, l 21:05: Injection, Denis 00 IV, Once, first dose 12/30/15 15:05:00 MEDICAL DOCTOR MD, stop date 12/30/15 15:05:00 MEDICAL DOCTOR MD fentaNYL 2016-0 No Perico 25 mcg = Mem oria 3-10 Wheat 0.5 mL, l 21:05: Injection, Denis 00 IV, Once, first dose 12/30/15 15:05:00 MEDICAL DOCTOR MD, stop date 12/30/15 15:05:00 MEDICAL DOCTOR MD midazolam 2015-0 No Percio 0.5 mg = Me moria 3-10 Wheat 0.5 mL, l 21:05: Injection, Denis 00 IV, Once, first dose 12/30/15 15:05:00 MEDICAL DOCTOR MD, stop date 12/30/15 15:05:00 MEDICAL DOCTOR MD fentaNYL 2015-0 No Perico 25 mcg = Mem oria 3-10 Wheat 0.5 mL, l 21:05: Injection, Philip 00 IV, Once, first dose 12/30/15 15:05:00 MEDICAL DOCTOR MD, stop date 12/30/15 15:05:00 MEDICAL DOCTOR MD midazolam 2016-0 No Perico 0.5 mg = Me moria 3-10 Wheat 0.5 mL, l 21:05: Injection, Philip 00 IV, Once, first dose 12/30/15 15:05:00 MEDICAL DOCTOR MD, stop date 12/30/15 15:05:00 MEDICAL DOCTOR MD fentaNYL 2016-0 No Perico 25 mcg = Mem oria 3-10 Wheat 0.5 mL, l 21:05: Injection, Philip 00 IV, Once, first dose 12/30/15 15:05:00 MEDICAL DOCTOR MD, stop date 12/30/15 15:05:00 MEDICAL DOCTOR MD midazolam 2015-0 No Perico 0.5 mg = Me moria 3-10 Wheat 0.5 mL, l 21:05: Injection, Denis 00 IV, Once, first dose 12/30/15 15:05:00 MEDICAL DOCTOR MD, stop date 12/30/15 15:05:00 MEDICAL DOCTOR MD fentaNYL 2015-0 No Perico 25 mcg = Mem oria 3-10 Wheat 0.5 mL, l 21:05: Injection, Denis 00 IV, Once, first dose 12/30/15 15:05:00 MEDICAL DOCTOR MD, stop date 12/30/15 15:05:00 MEDICAL DOCTOR MD midazolam 2015-0 No Perico 0.5 mg = Me moria 3-10 Wheat 0.5 mL, l 21:05: Injection, Philip 00 IV, Once, first dose 12/30/15 15:05:00 MEDICAL DOCTOR MD, stop date 12/30/15 15:05:00 MEDICAL DOCTOR MD clindamycin 0 No Jose Francisco 900 mg, IV Memoria 3-10 Johnson Piggyback, l 20:00: Once, Philip 00 infuse over 30 minutes, first dose 12/30/15 14:00:00 MEDICAL DOCTOR MD, stop date 12/30/15 14:00:00 MEDICAL DOCTOR MD, Prophylaxi s clindamycin 0 No Jose Francisco 900 mg, IV Memoria 3-10 Johnson Piggyback, l 20:00: Once, Denis 00 infuse over 30 minutes, first dose 12/30/15 14:00:00 MEDICAL DOCTOR MD, stop date 12/30/15 14:00:00 MEDICAL DOCTOR MD, Prophylaxi s clindamycin 2016-0 No Jose Francisco 900 mg, IV Memoria 3-10 Johnson Piggyback, l 20:00: Once, Philip 00 infuse over 30 minutes, first dose 12/30/15 14:00:00 MEDICAL DOCTOR MD, stop date 12/30/15 14:00:00 MEDICAL DOCTOR MD, Prophylaxi s clindamycin 2016-0 No Jose Francisco 900 mg, IV Memoria 3-10 Johnson Piggyback, l 20:00: Once, Denis 00 infuse over 30 minutes, first dose 12/30/15 14:00:00 MEDICAL DOCTOR MD, stop date 12/30/15 14:00:00 MEDICAL DOCTOR MD, Prophylaxi s clindamycin 2016-0 No Jose Francisco 900 mg, IV Memoria 3-10 Johnson Piggyback, l 20:00: Once, Denis 00 infuse over 30 minutes, first dose 12/30/15 14:00:00 MEDICAL DOCTOR MD, stop date 12/30/15 14:00:00 MEDICAL DOCTOR MD, Prophylaxi s clindamycin 2016-0 No Jose Francisco 900 mg, IV Memoria 3-10 Johnson Piggyback, l 20:00: Once, Denis 00 infuse over 30 minutes, first dose 12/30/15 14:00:00 MEDICAL DOCTOR MD, stop date 12/30/15 14:00:00 MEDICAL DOCTOR MD, Prophylaxi s clindamycin 2016-0 No Jose Francisco 900 mg, IV Memoria 3-10 Johnson Piggyback, l 20:00: Once, Denis 00 infuse over 30 minutes, first dose 12/30/15 14:00:00 MEDICAL DOCTOR MD, stop date 12/30/15 14:00:00 MEDICAL DOCTOR MD, Prophylaxi s clindamycin 2016-0 No Jose Francisco 900 mg, IV Memoria 3-10 [employer], l 20:00: Once, Philip 00 infuse over 30 minutes, first dose 12/30/15 14:00:00 MEDICAL DOCTOR MD, stop date 12/30/15 14:00:00 MEDICAL DOCTOR MD, Prophylaxi s clindamycin 2016-0 No Jose Francisco 900 mg, IV Memoria 3-10 [employer], l 20:00: Once, Philip 00 infuse over 30 minutes, first dose 12/30/15 14:00:00 MEDICAL DOCTOR MD, stop date 12/30/15 14:00:00 MEDICAL DOCTOR MD, Prophylaxi s LR 1,000 mL No Kyle K 1,000 mL, Memoria 3-10 Silvestre IV, 30 l 19:27: mL/hr, Philip start date 12/30/15 13:27:00 MEDICAL DOCTOR MD Lidocaine No Kyle K 0.2 mL, Mem oria 2% 0.2 mL 3-10 Silvestre Injection, l IV Start 19:27: Subcutaneo [facility] [[facility]] 00 us, Once PRN for other (see comment), first dose 12/30/15 13:27:00 MEDICAL DOCTOR MD LR 1,000 mL No Kyle K 1,000 mL, Memoria 3-10 Silvestre IV, 30 l 19:27: mL/hr, Philip start date 12/30/15 13:27:00 MEDICAL DOCTOR MD Lidocaine No Kyle K 0.2 mL, Mem oria 2% 0.2 mL 3-10 Silvestre Injection, l IV Start 19:27: Subcutaneo [facility] [[facility]] 00 us, Once PRN for other (see comment), first dose 12/30/15 13:27:00 MEDICAL DOCTOR MD LR 1,000 mL No Kyle K 1,000 mL, Memoria 3-10 Silvestre IV, 30 l 19:27: mL/hr, Philip start date 12/30/15 13:27:00 MEDICAL DOCTOR MD Lidocaine No Kyle K 0.2 mL, Mem oria 2% 0.2 mL 3-10 Silvestre Injection, l IV Start 19:27: [facility]cutaneo [facility] [[facility]] 00 us, Once PRN for other (see comment), first dose 12/30/15 13:27:00 MEDICAL DOCTOR MD LR 1,000 mL No Kyle K 1,000 mL, Memoria 3-10 Silvestre IV, 30 l 19:27: mL/hr, Denis start date 12/30/15 13:27:00 MEDICAL DOCTOR MD Lidocaine No Kyle K 0.2 mL, Mem oria 2% 0.2 mL 3-10 Silvestre Injection, l IV Start 19:27: [facility]cutaneo [facility] [[facility]] 00 us, Once PRN for other (see comment), first dose 12/30/15 13:27:00 MEDICAL DOCTOR MD LR 1,000 mL No Kyle K 1,000 mL, Memoria 3-10 Silvestre IV, 30 l 19:27: mL/hr, Denis start date 12/30/15 13:27:00 MEDICAL DOCTOR MD Lidocaine No Kyle K 0.2 mL, Mem oria 2% 0.2 mL 3-10 Silvestre Injection, l IV Start 19:27: [facility] [[facility]] 00 us, Once PRN for other (see comment), first dose 12/30/15 13:27:00 MEDICAL DOCTOR MD LR 1,000 mL No Kyle K 1,000 mL, Memoria 3-10 Silvestre IV, 30 l 19:27: mL/hr, Philip start date 12/30/15 13:27:00 MEDICAL DOCTOR MD Lidocaine No Kyle K 0.2 mL, Mem oria 2% 0.2 mL 3-10 Silvestre Injection, l IV Start 19:27: Subcutaneo Her hunt [[facility]] 00 us, Once PRN for other (see comment), first dose 12/30/15 13:27:00 MEDICAL DOCTOR MD LR 1,000 mL No Kyle K 1,000 mL, Memoria 3-10 Silvestre IV, 30 l 19:27: mL/hr, Philip 00 start date 12/30/15 13:27:00 MEDICAL DOCTOR MD Lidocaine No Kyle K 0.2 mL, Mem oria 2% 0.2 mL 3-10 Silvestre Injection, l IV Start 19:27: Subcutaneo Her hunt [[facility]] 00 us, Once PRN for other (see comment), first dose 12/30/15 13:27:00 MEDICAL DOCTOR MD LR 1,000 mL No Kyle K 1,000 mL, Memoria 3-10 Silvestre IV, 30 l 19:27: mL/hr, Philip start date 12/30/15 13:27:00 MEDICAL DOCTOR MD Lidocaine No Kyle K 0.2 mL, Mem oria 2% 0.2 mL 3-10 Silvestre Injection, l IV Start 19:27: Subcutaneo Her hunt [[place]] 00 us, Once PRN for other (see comment), first dose 12/30/15 13:27:00 MEDICAL DOCTOR MD LR 1,000 mL No Kyle K 1,000 mL, Memoria 3-10 Silvestre IV, 30 l 19:27: mL/hr, Philip 00 start date 12/30/15 13:27:00 MEDICAL DOCTOR MD Lidocaine No Kyle K 0.2 mL, Mem oria 2% 0.2 mL 3-10 Silvestre Injection, l IV Start 19:27: Subcutaneo Her hunt [[facility]] 00 us, Once PRN for other (see comment), first dose 12/30/15 13:27:00 MEDICAL DOCTOR MD Seroquel Yes 100 mg, Memori a 3- Oral, l 14:40: Daily, 0 Philip 00 Refill(s), migraines acetaminoph Yes 1 tabs, Mem oria en-HYDROcod 12-28 Oral, l one 325 14:40: q6hr, 0 Denis mg-5 mg 00 Refill(s), oral tablet pain traMADol 50 Yes 50 mg = 1 M emoria mg oral - tabs, l tablet 14:40: Oral, Philip 00 q4hr, 0 Refill(s), pain amLODIPine- Yes [...] XL 3-09 Oral, l 14:40: q24hr, 0 Philip 00 Refill(s), migraines Seroquel Yes 100 mg, Memori a 3- Oral, l 14:40: Daily, 0 Philip 00 Refill(s), migraines acetaminoph Yes 1 tabs, Mem oria en-HYDROcod 3- Oral, l one 325 14:40: q6hr, 0 Denis mg-5 mg 00 Refill(s), oral tablet pain traMADol 50 Yes 50 mg = 1 M emoria mg oral 3- tabs, l tablet 14:40: Oral, Philip 00 q4hr, 0 Refill(s), pain amLODIPine- Yes 1 tabs, Mem oria atorvastati - Oral, qHS, l n 5 mg-40 14:40: 0 Denis mg oral 00 Refill(s), tablet cholestero l/hyperten will Osteo Yes Oral, Memoria Bi-Flex 3- Daily, 0 l 14:40: Refill(s), Philip 00 supplement Nature's Yes 1,000 mg = [...] oral 3-09 tabs, l tablet 14:40: Oral, Philip 00 q4hr, 0 Refill(s), pain amLODIPine- Yes [...] oral 3- tabs, l tablet 14:40: Oral, Denis 00 [...] XL 3-09 Oral, l 14:40: q24hr, 0 Philip 00 Refill(s), migraines Seroquel Yes 100 mg, Memori a 3-09 Oral, l 14:40: Daily, 0 Philip 00 Refill(s), migraines acetaminoph Yes 1 tabs, Mem oria en-HYDROcod 3-09 Oral, l one 325 14:40: q6hr, 0 Denis mg-5 mg 00 Refill(s), oral tablet pain traMADol 50 Yes 50 mg = 1 M emoria mg oral - tabs, l tablet 14:40: Oral, Philip 00 q4hr, 0 Refill(s), pain amLODIPine- Yes 1 tabs, Mem oria atorvastati 12-28 Oral, qHS, l n 5 mg-40 14:40: 0 Denis mg oral 00 Refill(s), tablet cholestero l/hyperten will Osteo Yes Oral, Memoria Bi-Flex 3-09 Daily, 0 l 14:40: Refill(s), Philip 00 supplement Nature's Yes 1,000 mg = Mem oria Bounty Red 12-28 2 caps, l Krill Oil 14:40: Oral, BID, He rmann 500 mg oral 00 0 capsule Refill(s), supplement aspirin 81 Yes 81 mg = 1 Me moria mg oral 12-28 tabs, l tablet 14:40: Oral, Philip 00 Daily, 0 Refill(s), supplement Axert 12.5 [...] Oral, l one 325 14:40: q6hr, 0 Philip mg-5 mg 00 Refill(s), oral tablet pain traMADol 50 Yes 50 mg = 1 M emoria mg oral 3-09 tabs, l tablet 14:40: Oral, Philip 00 q4hr, 0 Refill(s), pain amLODIPine- Yes 1 tabs, Mem oria atorvastati 12-28 Oral, qHS, l n 5 mg-40 14:40: 0 Denis mg oral 00 Refill(s), tablet cholestero l/hyperten will Osteo Yes Oral, Memoria Bi-Flex 3- Daily, 0 l 14:40: Refill(s), Philip 00 supplement Nature's Yes 1,000 mg = Mem oria Bounty Red 12-28 2 caps, l Krill Oil 14:40: Oral, BID, He rmann 500 mg oral 00 0 capsule Refill(s), supplement aspirin 81 Yes 81 mg = 1 Me moria mg oral 12-28 tabs, l tablet 14:40: Oral, Philip 00 Daily, 0 Refill(s), supplement Axert 12.5 Yes 12.5 mg = Me moria mg oral 12-28 1 tabs, l tablet 14:40: Oral, Philip 00 Once, PRN for migraine headache, may repeat dose once in 2 hours, # 6 tabs, 0 Refill(s), migrainesm ay repeat dose once in 2 hours Wellbutrin Yes 300 mg, Turner arnoldo XL - Oral, l 14:40: q24hr, 0 Philip 00 Refill(s), migraines Seroquel Yes 100 mg, Memori a - Oral, l 14:40: Daily, 0 Philip 00 Refill(s), migraines acetaminoph Yes 1 tabs, Mem oria en-HYDROcod - Oral, l one 325 14:40: q6hr, 0 Denis mg-5 mg 00 Refill(s), oral tablet pain traMADol 50 Yes 50 mg = 1 M emoria mg oral - tabs, l tablet 14:40: Oral, Philip 00 q4hr, 0 Refill(s), pain amLODIPine- Yes 1 tabs, Mem oria atorvastati 3-09 Oral, qHS, l n 5 mg-40 14:40: 0 Philip mg oral 00 Refill(s), tablet cholestero l/hyperten will Osteo 2015- Yes Oral, Memoria Bi-Flex 3- Daily, 0 l 14:40: Refill(s), Denis 00 supplement [facility] Yes 1,000 mg = Mem oria Bounty Red - 2 caps, l Krill Oil 14:40: Oral, BID, He rmann 500 mg oral 00 0 capsule Refill(s), supplement aspirin 81 Yes 81 mg = 1 Me moria mg oral -09 tabs, l tablet 14:40: Oral, Philip 00 Daily, 0 Refill(s), supplement Axert 12.5 Yes 12.5 mg = Me moria mg oral 12-28 1 tabs, l tablet 14:40: Oral, Philip 00 Once, PRN for migraine headache, may repeat dose once in 2 hours, # 6 tabs, 0 Refill(s), migrainesm ay repeat dose once in 2 hours Wellbutrin Yes 300 mg, Turner arnoldo XL - Oral, l 14:40: q24hr, 0 Denis 00 Refill(s), migraines Seroquel Yes 100 mg, Memori a - Oral, l 14:40: Daily, 0 Philip 00 Refill(s), migraines acetaminoph Yes 1 tabs, [...] Bi-Flex 3-09 Daily, 0 l 14:40: Refill(s), Philip 00 supplement [facility] Yes 1,000 mg = Mem oria Bounty Red 12-28 2 caps, l Krill Oil 14:40: Oral, BID, He rmann 500 mg oral 00 0 capsule Refill(s), supplement aspirin 81 Yes 81 mg = 1 Me moria mg oral 3-09 tabs, l tablet 14:40: Oral, Philip 00 Daily, 0 Refill(s), supplement Axert 12.5 Yes 12.5 mg = Me moria mg oral -09 1 tabs, l tablet 14:40: Oral, Philip 00 Once, PRN for migraine headache, may [...] Oral, l one 325 14:40: q6hr, 0 Philip mg-5 mg 00 Refill(s), oral tablet pain traMADol 50 Yes 50 mg = 1 M emoria mg oral 3- tabs, l tablet 14:40: Oral, Philip 00 q4hr, 0 Refill(s), pain amLODIPine- Yes 1 tabs, Mem oria atorvastati - Oral, qHS, l n 5 mg-40 14:40: 0 Denis mg oral 00 Refill(s), tablet cholestero l/hyperten will Osteo Yes Oral, Memoria Bi-Flex 3- Daily, 0 l 14:40: Refill(s), Philip 00 supplement Nature's Yes 1,000 mg = Mem oria Bounty Red 12-28 2 caps, l Krill Oil 14:40: Oral, BID, He rmann 500 mg oral 00 0 capsule Refill(s), supplement aspirin 81 Yes 81 mg = 1 Me moria mg oral 3-09 tabs, l tablet 14:40: Oral, Philip 00 Daily, 0 Refill(s), supplement Axert 12.5 Yes 12.5 mg = Me moria mg oral 3-09 1 tabs, l tablet 14:40: Oral, Denis 00 Once, PRN for migraine headache, may repeat dose once in 2 hours, # 6 tabs, 0 Refill(s), migrainesm ay repeat dose once in 2 hours Wellbutrin Yes 300 mg, Turner arnoldo XL 12-28 Oral, l 14:40: q24hr, 0 Philip 00 Refill(s), migraines Seroquel Yes 100 mg, Memori a 12-28 Oral, l 14:40: Daily, 0 Philip 00 Refill(s), migraines acetaminoph Yes 1 tabs, [...] Bi-Flex 12-28 Daily, 0 l 14:40: Refill(s), Philip 00 supplement Nature's Yes 1,000 mg = Mem oria Bounty Red 12-28 2 caps, l Krill Oil 14:40: Oral, BID, He rmann 500 mg oral 00 0 capsule Refill(s), supplement aspirin 81 Yes 81 mg = 1 Me moria mg oral 12-28 tabs, l tablet 14:40: Oral, Philip 00 Daily, 0 Refill(s), supplement Axert 12.5 Yes 12.5 mg = Me moria mg oral 12-28 1 tabs, l tablet 14:40: Oral, Denis 00 Once, PRN for migraine headache, may repeat dose once in 2 hours, # 6 tabs, 0 Refill(s), migrainesm ay repeat dose once in 2 hours Wellbutrin Yes 300 mg, Turner arnoldo XL 3-09 Oral, l 14:40: q24hr, 0 Philip 00 Refill(s), migraines Immunizations Ordered Immunization Filled Immunization Date Status Commen ts Source Name Name FLUCELVAX QUAD PF 2022-06-[address] [facility] FLUCELVAX QUAD PF 2022-06-[address] [facility] FLUCELVAX QUAD PF 2022-06-[address] 00:[facility]:00 [facility] Bebtelovimab 2022-04-16 Completed [facility] 00:00:00 [facility] Bebtelovimab 2022-04-16 Completed [facility] 00:00:00 [facility] Bebtelovimab 2022-04-16 Completed [facility] 00:00:00 Hospital FLUCELVAX QUAD PF 2021-07-[address] [facility]00 Hospital FLUCELVAX QUAD PF 2021-07-[address] [facility]00 Hospital FLUCELVAX QUAD PF 2021-07-[address] [facility] FLUCELVAX QUAD PF 2020-09-[address] [facility]00 [facility] FLUCELVAX QUAD PF 2020-09-[address] [facility] FLUCELVAX QUAD [...] PF 2019-08-[address] [facility] FLUCELVAX QUAD PF 2019-08-[address] 00[facility]00 Hospital Hx influenza 2019-08-13 Completed [facility] vaccine-unspecified< 00:00:00 sup>1</sup> FLUCELVAX QUAD PF 2019-08-[address] 00:[facility]00 Hospital Tdap 2019-06-28 Completed [facility] 00:00:00 Hospital Tdap 2019-06-28 Completed [facility] 00:00:00 Hospital Tdap 2019-06-28 Completed [facility] 00:00:00 Hospital pneumococcal 2019-05-14 Completed [facility] [...] blood 2022-09-27 08:05:00 133 mm[Hg] [facility] Diastolic blood 2022-09-27 08:05:00 87 mm[Hg] [facility] Heart rate 2022-09-27 08:05:00 104 /min [facility] Body temperature 2022-09-27 08:05:00 35.56 Linda [facility] Respiratory rate 2022-09-27 08:05:00 20 /min [facility] Oxygen saturation in 2022-09-27 08:05:00 98 /min [facility] Arterial blood by Medical Ce nter Pulse oximetry Body weight 2022-09-25 11:28:00 98.2 kg [facility] BMI 2022-09-25 11:28:00 33.91 kg/m2 [facility] Body height 2022-09-23 16:00:00 170.2 cm [facility] Body height 2022-09-08 16:22:00 170.2 cm [facility] Body weight 2022-09-08 16:22:00 97.523 kg [facility] BMI 2022-09-08 16:22:00 33.67 kg/m2 [facility] Systolic blood 2022-08-27 21:24:34 114 mm[Hg] Method [facility] pressure Diastolic blood 2022-08-27 21:24:34 57 mm[Hg] Metho dist [facility] pressure Heart rate 2022-08-27 21:24:34 87 /min [facility] Body temperature 2022-08-27 21:24:34 36.61 [facility] 2022-08-27 21:24:34 18 /min [facility] Oxygen saturation in 2022-08-27 21:24:34 100 /min [facility] Arterial blood by Pulse oximetry Body height 2022-08-27 05:00:00 170.2 cm [facility] Body weight 2022-08-27 05:00:00 107.2 kg [facility] BMI 2022-08-27 05:00:00 37.02 kg/m2 [facility] Temperature Oral (F) 2022-04-19 19:52:00 97.6 F [facility] Height 2022-04-19 19:52:00 170.18 cm [facility] Weight 2022-04-19 19:52:00 [facility] BMI Calculated 2022-04-19 19:52:00 Memori al Denis Heart Rate 2021-10-17 21:23:00 [facility] Systolic (mm Hg) 2021-10-17 21:23:00 Turner rial Philip Diastolic (mm Hg) 2021-10-17 21:23:00 Mem orial Denis Height 2021-10-17 21:23:00 165.1 cm [facility] Weight 2021-10-17 21:23:00 [facility] Denis BMI Calculated 2021-10-17 21:23:00 Memori al Philip Heart Rate 2021-09-09 20:12:00 [facility] Denis Heart Rate 2021-09-09 20:08:00 [facility] Systolic (mm Hg) 2021-09-09 20:08:00 Turner rial Denis Diastolic (mm Hg) 2021-09-09 20:08:00 Mem orial Philip Height 2021-09-09 20:08:00 165.1 cm [facility] Denis Weight 2021-09-09 20:08:00 [facility] Denis BMI Calculated 2021-09-09 20:08:00 Memori al Philip Systolic (mm Hg) 2020-09-15 15:59:00 Turner rial Denis Diastolic (mm Hg) 2020-09-15 15:59:00 Mem orial Philip Heart Rate 2020-09-15 15:59:00 [facility] Philip Height 2020-09-15 15:59:00 165.1 cm [facility] Denis Weight 2020-09-15 15:59:00 [facility] Philip BMI Calculated 2020-09-15 15:59:00 Memori al Philip Systolic (mm Hg) 2019-12-16 20:42:00 Turner rial Philip Diastolic (mm Hg) 2019-12-16 20:42:00 Mem orial Philip Heart Rate 2019-12-16 20:42:00 [facility] Temperature Oral (F) 2019-12-16 20:42:00 98.2 F [facility] Height 2019-12-16 20:42:00 170.18 cm [facility] Denis Weight 2019-12-16 20:42:00 [facility] Denis BMI Calculated 2019-12-16 20:42:00 Memori al Denis Systolic (mm Hg) 2019-10-02 21:53:00 Turner rial Denis Diastolic (mm Hg) 2019-10-02 21:53:00 Mem orial Philip Heart Rate 2019-10-02 21:53:00 [facility] Philip Temperature Oral (F) 2019-10-02 21:53:00 97.9 F [facility] Height 2019-10-02 21:53:00 165.1 cm [facility] Philip Weight 2019-10-02 21:53:00 [facility] Denis BMI Calculated 2019-10-02 21:53:00 Memori al Denis Height 2019-08-15 14:54:00 165.1 cm [facility] Denis Weight 2019-08-15 14:54:00 [facility] Philip BMI Calculated 2019-08-15 14:54:00 Memori al Philip Systolic (mm Hg) 2019-08-15 14:54:00 Turner rial Philip Diastolic (mm Hg) 2019-08-15 14:54:00 Mem orial Denis Heart Rate 2019-08-15 14:54:00 [facility] Denis Temperature Oral (F) 2019-08-15 14:54:00 97.6 F [facility] Systolic (mm Hg) 2019-07-31 15:37:00 Turner rial Philip Diastolic (mm Hg) 2019-07-31 15:37:00 Mem orial Denis Heart Rate 2019-07-31 15:37:00 [facility] Denis Temperature Oral (F) 2019-07-31 15:37:00 98.2 F [facility] Denis Height 2019-07-31 15:37:00 165.1 cm [facility] Denis Weight 2019-07-31 15:37:00 [facility] Philip BMI Calculated 2019-07-31 15:37:00 Memori al Philip Weight 2019-03-27 15:18:00 [facility] Philip BMI Calculated 2019-03-27 15:18:00 Memori al Denis Height 2019-03-27 15:18:00 165.1 cm [facility] Temperature Oral (F) 2019-03-27 15:18:00 98.4 F [facility] Heart Rate 2019-03-27 15:18:00 [facility] Philip Systolic (mm Hg) 2019-03-27 15:18:00 Turner rial Philip Diastolic (mm Hg) 2019-03-27 15:18:00 Mem orial [...] Oral (F) 2019-01-02 14:26:00 97.9 F [facility] Systolic (mm Hg) 2019-01-02 14:26:00 Turner rial Philip Diastolic (mm Hg) 2019-01-02 14:26:00 Mem orial Philip Systolic (mm Hg) 2018-07-18 18:33:00 Turner rial Philip Diastolic (mm Hg) 2018-07-18 18:33:00 Mem orial Denis Heart Rate 2018-07-18 18:33:00 [facility] Denis Weight 2018-07-18 18:33:00 [facility] Philip BMI Calculated 2018-06-11 18:31:00 Memori al Philip Weight 2018-06-11 18:31:00 [facility] Philip Systolic (mm Hg) 2018-06-11 18:31:00 Turner rial Philip Diastolic (mm Hg) 2018-06-11 18:31:00 Mem orial Denis Height 2018-06-11 18:31:00 170.18 cm [facility] Temperature Oral (F) 2018-06-11 18:31:00 98.3 F [facility] Heart Rate 2018-06-11 18:31:00 [facility] Denis Weight 2018-01-10 16:14:00 [facility] Denis Height 2018-01-10 16:14:00 170.18 cm [facility] Philip BMI Calculated 2018-01-10 16:14:00 Memori al Philip Heart Rate 2018-01-10 16:14:00 [facility] Philip Systolic (mm Hg) 2018-01-10 16:14:00 Turner rial Philip Diastolic (mm Hg) 2018-01-10 16:14:00 Mem orial Philip BMI Calculated 2018-01-09 15:06:00 Memori al Denis Height 2018-01-09 15:06:00 170.18 cm [facility] Denis Weight 2018-01-09 15:06:00 [facility] Denis Systolic (mm Hg) 2018-01-09 15:06:00 Turner rial Philip Diastolic (mm Hg) 2018-01-09 15:06:00 Mem orial Philip Heart Rate 2018-01-09 15:06:00 [facility] Denis Temperature Oral (F) 2018-01-09 15:06:00 97.9 F [facility] Weight 2016-11-14 16:17:00 [facility] Denis Height 2016-11-14 16:17:00 170.18 cm [facility] Denis BMI Calculated 2016-11-14 16:17:00 Memori al Philip Respitory Rate 2015-12-31 01:25:00 Memori al Philip Systolic (mm Hg) 2015-12-31 00:50:00 Turner rial Denis Respitory Rate 2015-12-31 00:50:00 Memori al Philip Heart Rate 2015-12-31 00:50:00 [facility] Systolic (mm Hg) 2015-12-31 00:40:00 Turner rial Philip Respitory Rate 2015-12-31 00:40:00 Memori al Denis Heart Rate 2015-12-31 00:40:00 [facility] Heart Rate 2015-12-31 00:30:00 [facility] Systolic (mm Hg) 2015-12-31 00:30:00 Turner sebastian Denis Temperature Oral (F) 2015-12-30 23:50:00 37.1 Linda [facility] Height 2015-12-30 19:23:00 169 cm [facility] 2015-12-30 [facility] 2015-12-30 19:23:00 [facility].6 [facility] 2015-12-29 14:13:00 170 cm [facility] Weight 2015-12-29 14:13:00 [facility] Procedures Procedure Date / Time Performing Clinician Source Performed ULTRAFILTRATION HD CRRT 2022-09-26 18:40:00 Vee Coleman [facility] ECG 12-LEAD 2022-09-26 10:57:31 Unknown, 7 [facility] ECG 12-LEAD 2022-09-26 10:57:31 Unknown, 7 [facility] NM MYOCARDIAL PERFUSION 2022-09-26 10:55:00 Yaritza Reid [facility] PET/CT (REST & STRESS) Medical C enter TREADMILL 2022-09-26 10:49:30 Unknown, 7 [facility] TOLERANCE(NON-NUCLEAR Medical Ce nter TREADMILL) ECG 12-LEAD 2022-09-26 10:49:10 Unknown, 7 [facility] ECG 12-LEAD 2022-09-26 10:49:10 Unknown, 7 [facility] CBC W/PLT COUNT & AUTO 2022-09-26 03:40:00 Tejal [facility] BASIC METABOLIC PANEL 2022-09-26 03:40:00 Tejal [facility] MAGNESIUM 2022-09-26 03:40:00 Tejal [facility] PHOSPHORUS 2022-09-26 03:40:00 Tejal [facility] CBC W/PLT COUNT & AUTO 2022-09-26 03:40:00 Indio Cardozo [facility] HEPATITIS B SURFACE 2022-09-25 08:07:00 Harris Rutledge [facility] HEMODIALYSIS INPATIENT 2022-09-25 07:15:26 Ry Prajapati [facility] CBC W/PLT COUNT & AUTO 2022-09-25 04:40:00 Tre Pennington [facility] BASIC METABOLIC PANEL 2022-09-25 04:40:00 Tejal [facility] MAGNESIUM 2022-09-25 04:40:00 Tre Pennington [facility] PHOSPHORUS 2022-09-25 04:40:00 Tejal [facility] HEPATITIS C ANTIBODY 2022-09-25 04:40:00 Keith Mantilla [facility] PERIPHERAL BLOOD SMEAR - 2022-09-25 04:40:00 Keith Mantilla [facility] PATHOLOGIST REVIEW Medical [facility] CBC W/PLT COUNT & AUTO 2022-09-25 04:40:00 Indio Cardozo [facility] 2D ECHO W/ DOPPLER 2022-09-24 15:49:57 Indio Cardozo [facility] (CW/PW/COLOR) [facility] CBC W/PLT COUNT & AUTO 2022-09-24 04:30:00 Indio Cardozo [facility] CBC W/PLT COUNT & AUTO 2022-09-24 04:30:00 Tre Pennington [facility] BASIC METABOLIC PANEL 2022-09-24 04:30:00 Tre Pennington [facility] MAGNESIUM 2022-09-24 04:30:00 Tejal [facility] PHOSPHORUS 2022-09-24 04:30:00 Tejal [facility] PROTEIN ELECTROPHORESIS, 2022-09-24 04:30:00 Yaritza Reid [facility] HIGH SENSITIVITY TROPONIN 2022-09-23 18:09:00 Indio Cardozo [facility] POTASSIUM 2022-09-23 18:09:00 Tejal [facility] XR CHEST 1 VIEW PORTABLE / 2022-09-23 15:31:00 Celli, Indio Bonillaharis kiran [facility] CBC W/PLT COUNT & AUTO 2022-09-23 15:15:00 Celli, Indio Pablo barbra [facility] COMPREHENSIVE METABOLIC 2022-09-23 15:15:00 Celli, Indio Cruz izabela [facility] MAGNESIUM 2022-09-23 15:15:00 Celli, Indio Iverson [facility] PHOSPHORUS 2022-09-23 15:15:00 [facility] S[facility]ITIVITY TROPONIN 2022-09-23 15:15:00 Celli, Indio Randhawa [facility] B-TYPE NATRIURETIC FACTOR 2022-09-23 15:15:00 Celli, Indio Randhawa [facility] (BNP) [facility] CBC W/PLT COUNT & AUTO 2022-09-23 15:15:00 Celli, Indio Pablo barbra [facility] TSH 2022-09-23 15:14:00 Celli, Indio Iverson [facility] ECG 12-LEAD 2022-09-23 14:50:19 Unknown, Hl7 [facility] ECG 12-LEAD 2022-09-23 14:50:19 Unknown, Hl7 [facility] ECG 12-LEAD 2022-09-23 14:50:19 Unknown, Hl7 [facility] PROTHROMBIN TIME WITH INR 2022-08-27 06:57:[address] [facility] METABOLIC 2022-08-27 06:57:00 Miki Cleveland [facility] PANEL MAGNESIUM LEVEL 2022-08-27 06:57:00 Miki Cleveland spital PHOSPHORUS LEVEL 2022-08-27 06:57:00 Miki Cleveland ospital ESTIMATED GFR 2022-08-27 06:57:00 Miki Cleveland spital TROPONIN T 2022-08-27 06:57:00 Miki Cleveland Ho spital ZZCOVID-19 ANTI-SPIKE IGG 2022-08-27 06:56[facility]00 [facility] ANTIBODY TITER ZZCOVID-19 SEROLOGY 2022-08-27 06:56:00 [facility] PATIENT SURVEILLANCE CBC WITH PLATELET AND 2022-08-27 06:56:00 [facility]-19 QUALITATIVE 2022-08-27 04:58:00 [facility] RT-PCR TROPONIN T 2022-08-27 03:58:00 [facility] PRELIMINARY 2022-08-27 03:37:43 [facility] INTERPRETATION XR CHEST 1 VW PORTABLE 2022-08-27 01:31:25 [facility] METABOLIC 2022-08-27 01:20:00 [facility] PANEL LIPASE LEVEL 2022-08-27 01:20:00 [facility] TROPONIN T 2022-08-27 01:20:00 [facility] B NATRIURETIC PEPTIDE 2022-08-27 01:20:00 [facility] CBC WITH PLATELET AND 2022-08-27 01:20:00 [facility] DIFFERENTIAL ESTIMATED GFR 2022-08-27 01:20:00 [facility] ECG 12-LEAD 2022-08-27 01:03:45 Miki Cleveland spital [facility] METABOLIC 2022-08-22 16:47:00 [facility] Clark [facility] PANEL Herbert CBC WITH PLATELET AND 2022-08-22 16:47:00 [facility] DIFFERENTIAL Herbert THYROID STIMULATING 2022-08-22 16:47:00 [facility] Clark [facility] HORMONE Herbert PARATHYROID HORMONE 2022-08-22 16:47:00 [facility] Herbert VITAMIN D 25 HYDROXY LEVEL 2022-08-22 16:47:00 [facility] NM BONE SCAN 3 PHASE 2022-07-26 18:11:00 [facility] BONE DENSITY 2022-07-26 14:02:48 Clark Ontiveros [facility] Herbert BONE DENSITY PERIPHERAL 2022-07-26 14:02:48 Clark Ontiveros [facility] Herbert POC GLUCOSE 2022-06-28 04:49:00 [facility] HEMOGRAM 2022-06-27 10:05:00 John, Keith Porras [facility] BASIC METABOLIC PANEL 2022-06-27 10:05:00 [facility] 2022-06-27 10:05:00 Clark Ontiveros [facility] XR LUMBAR SPINE 2 OR 3 VW 2022-06-26 21:10:24 John, Keith K. [facility] XR THORACIC SPINE 2 VW 2022-06-26 21:10:08 [facility]ST 1 VW PORTABLE 2022-06-26 19:05:29 AsaduddmtMaddison [facility] BASIC METABOLIC PANEL 2022-06-26 09:08:00 [facility] PHOSPHORUS LEVEL 2022-06-26 09:08:00 CuelloDina gurrola [facility] ESTIMATED GFR 2022-06-26 09:08:00 Dina Cuello [facility] TTE COMPLETE, WO CONTRAST, 2022-06-25 15:40:58 Leyla Pavon [facility] W DOPPLER ([id number]) MRI THORACIC SPINE WO 2022-06-25 02:11:31 Clark Ontiveros [facility] CONTRAST Herbert MRI LUMBAR SPINE WO 2022-06-25 01:29:36 Clifton Lantigua [facility]AST [facility] B CORE ANTIBODY 2022-06-24 17:34:00 Dina Cuello [facility] TOTAL HEPATITIS B SURFACE AB, 2022-06-24 17:34:00 Dina Cuello [facility] QUANTITATIVE HEPATITIS B SURFACE 2022-06-24 17:34:00 [facility] COVID-19 QUALITATIVE 2022-06-24 16:35:00 Grzegorz [facility] RT-PCR [facility] COVID-19 OMICRON VARIANT 2022-06-24 16:35:00 Lantigua [facility] QUALITATIVE RT-PCR [facility] POC GLUCOSE 2022-06-24 16:35:00 [facility] POC GLUCOSE 2022-06-24 15:09:[address] [facility] [address] [facility]INE WO 2022-06-24 13:41:51 [facility] CONTRAST [facility] CT RENAL STONE PROTOCOL 2022-06-24 13:41:38 [facility] CBC WITH PLATELET AND 2022-06-24 12:44:00 [facility] DIFFERENTIAL [facility] 2022-06-24 12:44:00 [facility] PANEL [facility] ESTIMATED GFR 2022-06-24 12:44:00 [facility] [place] CRITICAL CARE 2022-06-24 12:28:33 [facility] ILL/INJURED PATIENT INIT [facility] 30-74 MIN HEPATITIS B SURFACE 2022-05-20 15:33:[address] [facility]TIGEN [facility] HEPATITIS B SURFACE 2022-05-20 15:33:[address] [facility] ANTIBODY [facility] XR CHEST 1 VW PORTABLE 2022-04-29 13:25:18 Rajwinder Kay [facility] COMPREHENSIVE METABOLIC 2022-04-29 10:32:00 [facility] PANEL CBC WITH PLATELET AND 2022-04-29 10:32:00 [facility] DIFFERENTIAL ESTIMATED GFR 2022-04-29 10:32:00 [facility] 2022-04-29 05:06:40 [facility] CORE ANTIBODY 2022-04-28 20:59:00 [facility] TOTAL [facility] HEPATITIS B CORE ANTIBODY 2022-04-28 20:59:00 [facility] HEPATITIS B SURFACE 2022-04-28 20:59:00 [facility] ANTIGEN [facility] HEPATITIS B SURFACE AB, 2022-04-28 20:58:00 Jeffry [facility] QUANTITATIVE Valarie HEMODIALYSIS 2022-04-28 15:58:20 [facility] 2022-04-28 15:44:00 [facility] XR CHEST 1 VW PORTABLE 2022-04-28 11:41:07 [facility] TROPONIN T 2022-04-28 11:41:00 [facility] CBC WITH PLATELET AND 2022-04-28 11:41:00 [facility] DIFFERENTIAL COMPREHENSIVE METABOLIC 2022-04-28 11:41:00 [facility] PANEL PROTHROMBIN TIME WITH INR 2022-04-28 11:41:00 [facility] PARTIAL THROMBOPLASTIN 2022-04-28 11:41:00 [facility] TIME (PTT) B NATRIURETIC PEPTIDE 2022-04-28 11:41:00 [facility] PROCALCITONIN 2022-04-28 11:41:00 [facility] CREATINE KINASE, TOTAL 2022-04-28 11:41:00 [facility] (CPK) C-REACTIVE PROTEIN 2022-04-28 11:41:00 [facility] INTERLEUKIN 6 2022-04-28 11:41:00 [facility] FERRITIN LEVEL 2022-04-28 11:41:00 [facility] D-DIMER 2022-04-28 11:41:00 [facility] LDH 2022-04-28 11:41:00 [facility] FIBRINOGEN 2022-04-28 11:41:00 [facility] ESTIMATED GFR 2022-04-28 11:41:00 [facility] RESPIRATORY PATHOGEN PANEL 2022-04-28 09:45:[address] [facility] WITH COVID-19 RT-PCR [facility] XR CHEST 1 VW 2022-04-28 08:05:46 Taylor Woodall reema [facility] BLOOD CULTURE, AEROBIC & 2022-04-28 07:49:00 Taylor Woodall [facility] ANAEROBIC [facility] CBC WITH PLATELET AND 2022-04-28 07:49:00 Jose C [facility] DIFFERENTIAL [facility] METABOLIC 2022-04-28 07:49:00 Taylor Woodall [facility] PANEL [facility] TROPONIN T 2022-04-28 07:49:00 [facility] B NATRIURETIC PEPTIDE 2022-04-28 07:49:00 Jose C [facility] ESTIMATED GFR 2022-04-28 07:49:00 Taylor Woodall ECG ED PRELIMINARY 2022-04-28 07:26:13 [facility] ECG 12-LEAD 2022-04-28 07:20:02 Taylor Woodall [address]ema [place] CT ABDOMEN PELVIS WO 2022-04-16 23:38:27 Cornelio [facility] CONTRAST CBC WITH PLATELET AND 2022-04-16 23:14:00 oCrnelio [facility] DIFFERENTIAL COMPREHENSIVE METABOLIC 2022-04-16 23:14:00 [facility] PANEL LIPASE LEVEL 2022-04-16 23:14:00 [facility] ESTIMATED GFR 2022-04-16 23:14:00 [facility] BASIC METABOLIC PANEL 2022-04-14 22:54:00 Baranowskylee-Dacmoira, [facility] Valarie ESTIMATED GFR 2022-04-14 22:54:00 Baranoderekka-Daca[facility] POC GLUCOSE 2022-04-14 22:04:[address] [facility] CT ANGIOGRAM PE CHEST 2022-04-14 00:23:56 Fabiola Rashid [facility] IR VERTEBRO LUM UNI OR BALDO 2022-04-13 19:25:00 Jena Cool [facility] ECG 12-LEAD 2022-04-13 18:05:39 Greg Snyder [facility] BASIC METABOLIC PANEL 2022-04-13 10:16:00 Radu [facility] CBC WITH PLATELET AND 2022-04-13 10:16:00 Radu [facility] DIFFERENTIAL PROTHROMBIN TIME WITH INR 2022-04-13 10:16:00 [facility]uneet [facility] ESTIMATED GFR 2022-04-13 10:16:00 Puneet Lovelace Hamzah [facility] TYPE AND SCREEN 2022-04-13 10:16:[address] [facility] TROPONIN T 2022-04-13 02:33:[address] [facility] HEMODIALYSIS 2022-04-13 01:59:31 Vinnie-Paris, [facility] TTE COMPLETE, WO CONTRAST, 2022-04-13 00:15:[address] [facility] W DOPPLER ([id number]) TROPONIN T 2022-04-12 23:10:00 Radu Puneet Hamzah [facility] TROPONIN T 2022-04-12 20:19:[address] [facility] HEMODIALYSIS 2022-04-11 13:51:20 Baranoderekka-Daca, [facility] CBC WITH PLATELET AND 2022-04-11 11:10:00 Jena Cool [facility] DIFFERENTIAL BASIC METABOLIC PANEL 2022-04-11 11:10:00 Travon, [facility] PARATHYROID HORMONE 2022-04-11 11:10:00 [facility] VIT[facility] D 25 HYDROXY LEVEL 2022-04-11 11:10:00 Jena Cool [facility] DIGOXIN LEVEL 2022-04-11 11:10:00 [facility] ospital Valarie PHOSPHORUS LEVEL 2022-04-11 11:10:00 [facility] Valarie ESTIMATED GFR 2022-04-11 11:10:00 Travon [facility] CBC WITH PLATELET AND 2022-04-10 09:45:00 [facility]FFER[facility] BASIC METABOLIC PANEL 2022-04-10 09:45:00 [facility] PROTHROMBIN TIME WITH INR 2022-04-10 09:45:00 Travon [facility] ESTIMATED GFR 2022-04-10 09:45:00 Travon [facility] GASTROINTESTINAL PANEL 2022-04-09 22:47:00 [facility]ST 1 VW PORTABLE 2022-04-09 17:34:26 [facility] WITH [facility]ATELET AND 2022-04-09 10:01:00 [facility] DIFFERENTIAL BASIC METABOLIC PANEL 2022-04-09 10:01:00 [facility] ESTIMATED GFR 2022-04-09 10:01:00 Travon [facility] HEMODIALYSIS 2022-04-08 14:21:31 [facility] ospital Valarie CBC WITH PLATELET AND 2022-04-08 10:11:00 [facility] DIFFERENTIAL COMPREHENSIVE METABOLIC 2022-04-08 10:11:00 Travon [facility] PANEL ESTIMATED GFR 2022-04-08 10:11:00 [facility] MRI LUMBAR SPINE WO 2022-04-08 02:13:34 Shaikh [facility] CONTRAST POTASSIUM LEVEL 2022-04-07 18:15:00 Ronnyanonima-Paris, [facility] HEPATITIS B SURFACE 2022-04-07 13:46:00 Baranowskylee-Daca, [facility] ANTIGEN [place]arie HEPATITIS B SURFACE 2022-04-07 13:46:00 [facility], [facility] ANTIBODY Valarie TROPONIN T 2022-04-07 13:43:00 Gutierrez Leal Ho [facility] HEMODIALYSIS 2022-04-07 13:16:08 Vinnie-Paris, [facility] CBC WITH PLATELET AND 2022-04-07 11:21:00 Shaikh [facility] DIFFERENTIAL PROTHROMBIN TIME WITH INR 2022-04-07 11:21:00 Shaikh [facility] COMPREHENSIVE METABOLIC 2022-04-07 11:21:00 [facility] PANEL THYROID STIMULATING 2022-04-07 11:21:00 Shaikh [facility] HORMONE ESTIMATED GFR 2022-04-07 11:21:00 Gutierrez Leal spital ZZCOVID-19 ANTI-SPIKE IGG 2022-04-07 06:43:00 Leal [facility] ANTIBODY TITER ZZCOVID-19 SEROLOGY 2022-04-07 06:43:00 Leal [facility] PATIENT SURVEILLANCE TROPONIN T 2022-04-07 06:43:00 Gutierrez Leal spital PROCALCITONIN 2022-04-07 06:43:00 Gutierrez Leal spital URINE CULTURE 2022-04-07 05:18:00 Ellie Crespo spital COVID-19 QUALITATIVE 2022-04-07 04:41:00 Zak [facility] RT-PCR URINALYSIS SCREEN AND 2022-04-07 04:41:00 Zak [facility] MICROSCOPY, WITH REFLEX TO CULTURE CT ABDOMEN PELVIS WO 2022-04-07 03:51:[address] [facility] CONTRAST CT LUMBAR SPINE WO 2022-04-07 03:49:20 Zak [facility] CONTRAST COMPREHENSIVE METABOLIC 2022-04-07 03:31:00 Ellie Crespo [facility] PANEL CBC WITH PLATELET AND 2022-04-07 03:31:00 Zak [facility] DIFFERENTIAL ESTIMATED GFR 2022-04-07 03:31:00 [facility] CHEST 1 VW 2022-04-07 03:22:49 Ellie Crespo [facility] spital ECG ED PRELIMINARY 2022-04-07 02:44:33 Zak [facility] INTERPRETATION ECG 12-LEAD 2022-04-07 02:40:03 Gutierrez Leal [facility] spital HEMODIALYSIS 2021-12-28 14:28:03 Baranowska-Daca, [facility] BASIC METABOLIC PANEL 2021-12-28 03:17:00 Baranowska-Daca, [facility] Valarie ESTIMATED GFR 2021-12-28 03:17:00 Baranowska-Daca, [facility] POC GLUCOSE 2021-12-28 02:29:00 Michelle Golden [facility] R IR VERTEBRO CERVICAL AND 2021-12-27 20:19:56 Michelle Golden [facility] THOR UNI OR BALDO R IR VERTEBROPLASTY EA ADDL 2021-12-27 20:19:56 Michelle Golden [facility] T OR L R CA AN ELECTIVE 2021-12-27 19:47:00 Devonte Schuster [facility] HEMODIALYSIS 2021-12-26 20:14:38 Baranowska-Daca, [facility] BLOOD CULTURE, AEROBIC & 2021-12-25 20:28:00 Nilesh Nation [facility] ANAEROBIC URINE CULTURE 2021-12-24 23:56:00 Baranowska-Daca, [facility] CT RENAL STONE PROTOCOL 2021-12-24 23:39:33 Baranowska-Daca, [facility] URINALYSIS SCREEN AND 2021-12-24 22:29:00 Vinnie-Paris, [facility] MICROSCOPY, WITH REFLEX TO Valarie CULTURE HEMODIALYSIS 2021-12-24 15:08:13 Baranonima-Daca, [facility] HC COMPLETE BLD COUNT 2021-12-23 09:55:00 Brielle, [facility] W/AUTO DIFF R BASIC METABOLIC PANEL 2021-12-23 09:55:00 [facility] R PROTHROMBIN TIME WITH INR 2021-12-23 09:55:00 Brielle, Michelle Painting [facility] R URIC ACID LEVEL 2021-12-23 09:55:00 Baranowska-Daca, [facility] ospital Valarie DIGOXIN LEVEL 2021-12-23 09:55:00 Baranowska-Daca, [facility] ospital Valarie CORTISOL LEVEL, AM 2021-12-23 09:55:00 Baranowska-Daca, [facility] HEMOGLOBIN A1C 2021-12-23 09:55:00 Baranowska-Daca, [facility] AMYLASE LEVEL 2021-12-23 09:55:00 Baranowska-Daca, [facility] ospital Valarie LIPASE LEVEL 2021-12-23 09:55:00 Baranowska-Daca, [facility] ESTIMATED GFR 2021-12-23 09:55:00 [place], [facility] VITAMIN D 25 HYDROXY LEVEL 2021-12-22 09:33:00 Baranowska-Peea, [facility] PARATHYROID HORMONE 2021-12-22 09:33:00 Baranowskylee-Paris, [facility] PHOSPHORUS LEVEL 2021-12-22 09:33:00 Baranowska-Daca, [facility] XR SHOULDER 2+ VW RIGHT 2021-12-22 04:05:25 Vinnie-Paris, [facility] HEMODIALYSIS 2021-12-22 03:41:52 Baranowska-Daca, [facility] MRI LUMBAR SPINE WO 2021-12-21 15:10:25 Safia Scherer [facility] CONTRAST MRI THORACIC SPINE WO 2021-12-21 14:44:08 Safia Scherer [facility] CONTRAST BASIC METABOLIC PANEL 2021-12-21 10:43:00 Baranowska-Daca, [facility] ESTIMATED GFR 2021-12-21 10:43:00 Baranowska-Daca, [facility] BASIC METABOLIC PANEL 2021-12-20 22:26:00 Baranowska-Daca, [facility] ESTIMATED GFR 2021-12-20 22:26:00 Baranowska-Daca, [facility] HEMODIALYSIS 2021-12-20 14:03:25 Baranowska-Daca, [facility] HC COMPLETE BLD COUNT 2021-12-20 09:43:00 [facility] W/AUTO DIFF Tajdin COMPREHENSIVE METABOLIC 2021-12-20 09:43:00 [facility] PANEL Tajdin MAGNESIUM LEVEL 2021-12-20 09:43:00 [facility] Tajdin ESTIMATED GFR 2021-12-20 09:43:00 [facility] 2021-12-20 00:24:00 Cristofer Grimes [facility] HEPATITIS B SURFACE 2021-12-20 00:24:00 Vinnie-Peea, [facility] ANTIGEN [facility] HEPATITIS B SURFACE AB, 2021-12-20 00:24:00 Barshaquillewska-Daca [facility] QUANTITATIVE Valarie HEMODIALYSIS 2021-12-19 22:22:37 Baranowska-Daca, [facility] THYROID STIMULATING 2021-12-19 21:32:00 [facility], FREE 2021-12-19 21:32:00 Angy Mccord Ho spital TROPONIN T 2021-12-19 21:32:00 Angy Mccord Ho spital COVID-19 QUALITATIVE 2021-12-19 21:22:00 Ray, [facility] RT-PCR CT LUMBAR SPINE WO 2021-12-19 20:55:41 Ray, [facility] CONTRAST CT THORACIC SPINE WO 2021-12-19 20:53:28 Ray, [facility] CONTRAST CT ANGIOGRAM PE CHEST 2021-12-19 20:45:21 Ray, [facility] ECG 12-LEAD 2021-12-19 19:35:11 Ray, [facility] XR THORACIC SPINE 2 VW 2021-12-19 19:17:36 Ray, [facility] HC COMPLETE BLD COUNT 2021-12-19 18:50:00 Ray, [facility] W/AUTO DIFF COMPREHENSIVE METABOLIC 2021-12-19 18:50:00 Ray, [facility] PANEL TROPONIN T 2021-12-19 18:50:00 Ray, [facility] ESTIMATED GFR 2021-12-19 18:50:00 Ray, [facility] LIPASE LEVEL 2021-12-19 18:50:00 Ray, [facility] ECG ED PRELIMINARY 2021-12-19 18:18:35 Ray, [facility] INTERPRETATION XR CHEST 2 VW 2021-11-14 16:02:54 [facility] Diabetic retinal eye 2019-12-11 06:00:00 Jourdan Barrios exam<sup>1</sup> Mammogram 2017-05-05 05:00:00 Aylin Her hunt Colonoscopy<sup>2</sup> 2016-11-17 06:00:00 Turner Barrios OPEN REDUCTION INTERNAL 2015-12-30 22:13:00 Jr Johnsonew Turner Barrios FIXATION RADIUS INTRA-ARTICULAR W/3 FRAGMENTS [id number] (Right)<sup>1</sup> Repair of 2015-12-30 06:00:00 Aylin Her hunt wrist<sup>3</sup> skin cancer removed from 2011-10-22 00:00:00 Mem [facility]rial Denis arm Cholecystectomy [facility] Procedure<sup>2</sup> [facility] Eye operation [facility] Biopsy of breast [facility] bilateral radial [facility] kerototomy bilateral tubal ligation [facility] colonoscopy [facility] Skin cancer of [facility] arm<sup>4</sup> Plan of Care Planned Activity [...] or Tdap)] Future Scheduled 2029-06-28 DTAP/TDAP/TD VACCINES [facility] 00:00:00 (2 - Td or Tdap) [code Medic al Center = DTAP/TDAP/TD VACCINES (2 - Td or Tdap)] Future Scheduled 2022-10-31 COVID-19 VACCINE (#1) [facility] Test 12:01:44 [code = COVID-19 VACCINE (#1)] Future Scheduled 2022-10-31 65+ PNEUMOCOCCAL [facility] Test 12:01:44 VACCINE (1 - PCV) [code = 65+ PNEUMOCOCCAL VACCINE (1 - PCV)] Future Scheduled 2022-10-31 SHINGLES VACCINES (1 Met [facility] Test 12:01:44 of 2) [code = SHINGLES VACCINES (1 of 2)] Future Scheduled 2022-10-31 COLONOSCOPY SCREENING [facility] Test 12:01:44 [code = COLONOSCOPY SCREENING] Future Scheduled 2022-10-31 BREAST CANCER [facility] Test 12:01:44 SCREENING [code = BREAST CANCER SCREENING] Future Scheduled 2022-10-31 COVID-19 VACCINE (#1) [facility] Test 12:01:44 [code = COVID-19 VACCINE (#1)] Future Scheduled 2022-10-31 65+ PNEUMOCOCCAL [facility] Test 12:01:44 VACCINE (1 - PCV) [code = 65+ PNEUMOCOCCAL VACCINE (1 - PCV)] Future Scheduled 2022-10-31 SHINGLES VACCINES (1 Met [facility] Test 12:01:44 of 2) [code = SHINGLES VACCINES (1 of 2)] Future Scheduled 2022-10-31 COLONOSCOPY SCREENING [facility] Test 12:01:44 [code = COLONOSCOPY SCREENING] Future Scheduled 2022-10-31 BREAST CANCER [facility] Test 12:01:44 SCREENING [code = BREAST CANCER SCREENING] Future Scheduled 2022-10-[address] [facility] Test 00:00:00 (12+) [code = Medical Center DEPRESSION SCREENING (12+)] Future Scheduled 2022-10-22 FALLS RISK SCREENING [facility] Test 00:00:00 [code = FALLS RISK Medical C enter SCREENING] Future Scheduled 2022-10-[address] [facility] Test 00:00:00 (12+) [code = Medical Center DEPRESSION SCREENING (12+)] Future Scheduled 2022-10-22 FALLS RISK SCREENING [facility] Test 00:00:00 [code = FALLS RISK Medical C enter SCREENING] Future Scheduled 2022-09-01 HEPATITIS B VACCINES Met [facility] Test 11:07:43 (1 of 3 - 3-dose series) [code = HEPATITIS B VACCINES (1 of 3 - 3-dose series)] Future Scheduled 2022-09-01 COVID-19 VACCINE (#1) [facility] Test 11:07:43 [code = COVID-19 VACCINE (#1)] Future Scheduled 2022-09-01 65+ P[facility]UMOCOCCAL [facility] Test 11:07:43 VACCINE (1 - PCV) [code = 65+ PNEUMOCOCCAL VACCINE (1 - PCV)] Future Scheduled 2022-09-01 SHINGLES VACCINES (1 Met [facility] Test 11:07:43 of 2) [code = SHINGLES VACCINES (1 of 2)] Future Scheduled 2022-09-01 Screening for [facility] Test 11:07:43 malignant neoplasm of cervix (procedure) [code = 146395504] Future Scheduled 2022-09-01 COLONOSCOPY SCREENING [facility] Test 11:07:43 [code = COLONOSCOPY SCREENING] Future Scheduled 2022-09-01 BREAST CANCER [facility] Test 11:07:43 SCREENING [code = BREAST [...] es Test 00:00:00 malignant neoplasm of [facility] breast (procedure) [code = 415306625] Future Scheduled [address] [facility] Test 00:00:00 (combo) [code = CT Medical C enter Colonography (combo)] Future Scheduled [address] [facility] Test 00:00:00 malignant neoplasm of [facility] colon (procedure) [code = 755098220] Future Scheduled [address] [facility] Test 00:00:00 malignant neoplasm of [facility] Center colon (procedure) [code = 303327988] Future Scheduled 1956 DXA SCAN [code = DXA [facility] Test 00:00:00 SCAN] [facility] Future Scheduled [address] [facility] Test 00:00:00 malignant neoplasm of [facility]ica [facility] Center colon (procedure) [code = 564456728] Future Scheduled [address] [facility] [facility] Test 00:00:00 malignant neoplasm of [facility] Center colon (procedure) [code = 175006095] Future Scheduled 1956 Sigmoidoscopy [facility]code = [facility]oscopy] [facility] Future Scheduled [address] [facility] Test 00:00:00 malignant neoplasm of [facility]ica [facility] Center breast (procedure) [code = 949091603] Future Scheduled [address] [facility] Test 00:00:00 (combo) [code = CT Medical C enter Colonography (combo)] Future Scheduled [address] [facility] [facility] Test 00:00:00 malignant neoplasm of [facility] Center colon (procedure) [code = 308071628] Future Scheduled [address] [facility] [facility] Test 00:00:00 malignant neoplasm of [facility]ica [facility] Center colon (procedure) [code = 792356119] Future Scheduled 1956 DXA SCAN [code = DXA [facility] Test 00:00:00 SCAN] [facility] Future Scheduled [address] [facility] Test 00:00:00 malignant neoplasm of [facility] Center colon (procedure) [code = 853766477] Future Scheduled [address] [facility] [facility] Test 00:00:00 malignant neoplasm of [facility]ica [facility] Center colon (procedure) [code = 465391992] Future Scheduled 1956 Sigmoidoscopy [facility]code [facility]oscopy] [facility] Future Scheduled [address] [facility] Test 00:00:00 malignant neoplasm of [facility]ica [facility] Center breast (procedure) [code = 631299379] Future Scheduled [address] [facility] Test 00:00:00 (combo) [code = CT Medical C enter Colonography (combo)] Future Scheduled [address] [facility] [facility] 00:00:00 malignant neoplasm of [facility]ica [facility] Center colon (procedure) [code = 886946890] Future Scheduled [address] [facility] 00:00:00 malignant neoplasm of [facility]ica [facility] Center colon (procedure) [code = 082846437] Future Scheduled 1956 DXA SCAN [code = DXA [facility] Test 00:00:00 SCAN] [facility] Future Scheduled [address] [facility] [facility] 00:00:00 malignant neoplasm of Medica l Center colon (procedure) [code = 768252735] Future Scheduled [address] [facility] [facility] Test 00:00:00 malignant neoplasm of [facility]ica [facility] Center colon (procedure) [code = 547176413] Future Scheduled 1956 Sigmoidoscopy [facility]code [facility] S[facility]oscopy] [facility] Future Scheduled [address] [facility] 00:00:00 malignant neoplasm of [facility]ica [facility] Center breast (procedure) [code = 053968145] Future Scheduled [address] [facility] Test 00:00:00 (combo) [code = CT Medical C enter Colonography (combo)] Future Scheduled [address] [facility] [facility] Test 00:00:00 malignant neoplasm of [facility]ica [facility] Center colon (procedure) [code = 710917476] Future Scheduled [address] [facility] [facility] Test 00:00:00 malignant neoplasm of [facility]ica [facility] Center colon (procedure) [code = 804245719] Future Scheduled 1956 DXA SCAN [code = DXA [facility] Test 00:00:00 SCAN] [facility] Future Scheduled [address] [facility] 00:00:00 malignant neoplasm of [facility]ica [facility] Center colon (procedure) [code = 796091968] Future Scheduled [address] [facility] [facility] Test 00:00:00 malignant neoplasm of [facility]ica l Center colon (procedure) [code = 533710026] Future Scheduled 1956 Sigmoidoscopy [facility]code [facility] S[facility]oscopy] [facility] Future Scheduled [address] [facility] Test 00:00:00 malignant neoplasm of [facility]ica l Center breast (procedure) [code = 989640984] Future Scheduled [address] [facility] 00:00:00 (combo) [code = CT Medical C enter Colonography (combo)] Future Scheduled [address] [facility] Test 00:00:00 [facility] (procedure) [code = 726886610] Future Scheduled [address] [facility] 00:[facility]00 malignant ne[facility] colon (procedure) [code = 021839707] Future Scheduled 1956 DXA SCAN [code = DXA [facility] Test 00:00:00 SCAN] [facility] Future Scheduled [address] [facility] 00:00:00 malignant neoplasm [facility] colon (procedure) [code = 400264130] Future Scheduled [address] [facility] 00:00:00 malignant neoplasm [facility] colon (procedure) [code = 839211890] Future Scheduled 1955 Sigmoid[facility]code [facility]] [facility] Encounters Start End Encounter Admission Attending Care Care Encounter Source Date/Time Date/Time Type Type Clinicians Facility Department ID 2022-11-10 Inpatient HARJEET Macario [facility] [id number] [place] 09:00:00 Cr [id number] [facility] 2022-03-13 Inpatient HARJEET King, HCAPM ENDO [id number] [facility] 09:00:00 Adam 17 [facility] 2022-09-23 2022-09-27 Hospital Yaritza Reid [facility] [id number] [facility] 14:20[facility] 12:50:00 Encounter Keith Mantilla [facility] 2022-09-23 2022-09-27 [facility] Yaritza Reid [facility] [id number] [facility] 14:20:00 12:50:00 Encounter Keith Mantilla [facility] 2022-09-23 2022-09-27 Inpatient [facility] Cardiology 20 [id number] [facility] 14:20:00 12:50:00 TRE 2022-09-26 2022-09-26 Orders [facility] [id number] 00:00:00 00:00:00 [facility] 2022-09-26 2022-09-26 Orders [facility] [id number] 00:00:00 00:00:00 Only [facility] 2022-09-23 2022-09-23 Outpatient [facility] [id number] [facility] 00:00:00 23:59:00 Geeta 2022-09-23 2022-09-23 Orders [facility] [id number] [address] 00:00:00 00:00:00 Only [facility] 2022-09-23 2022-09-23 Orders [facility] [id number] [address] 00:00:00 00:00:00 [facility] 2022-09-08 2022-09-08 Travel 1.2.840.1 1.2.496.104 0005 [id number] Methodi 00:00:00 00:00:[address] 3.430.2.7 0.2.7.3.698 Ho spita .3.364532 084.8 l .8 2022-09-08 2022-09-08 Travel 1.2.840.1 1.2.311.060 5961 380587 Methodi 00:00:00 00:00:[address] 3.430.2.7 0.2.7.3.698 Ho spita .3.248017 084.8 l .8 2022-09-05 2022-09-05 Telephone Padilla, 1.2.840.1 [id number] 517 [id number] Methodi 00:00:00 00:00:[address] 3.430.2.7 Hospit a .3.810846 l .8 2022-09-05 2022-09-05 Telephone Padilla, 1.2.840.1 [id number] 746 [id number] Methodi 00:00:00 00:00:[address] 3.430.2.7 Hospit a .3.502917 l .8 2022-08-26 2022-08-27 [facility] Dean 1.2.840.1 1 [id number] Methodi 20:01:00 18:10:00 Encounter Salvador Gomez 29845.1.[address] [facility] [place] 3.430.2.7 Hospita [facility] .3.978294 l .8 2022-08-26 2022-08-27 [facility] 1.2.840.1 1 [id number] Methodi 20:01:00 18:10:00 Encounter Salvador Gomez 46127.1.[address] [facility] [place] 3.430.2.[address] [facility] Nereida .3.409722 l .8 2022-08-26 2022-08-26 Travel 1.2.840.1 1.2.689.771 1622 050780 Methodi 00:00:00 00:00:[address] 3.430.2.7 0.2.7.3.698 Ho spita .3.416241 084.8 l .8 2022-08-26 2022-08-26 Travel 1.2.840.1 1.2.599.798 2488 054654 Methodi 00:00:00 00:00:[address] 3.430.2.7 0.2.7.3.698 Ho spita .3.473474 084.8 l .8 2022-08-22 2022-08-22 Orders Ontiveros, 1.2.840.1 [id number] 2037 Methodi 00:00:00 00:00:00 Only Clark 14297.1.[address] [place] 3.430.2.7 Hosp naye .3.551029 l .8 2022-08-22 2022-08-22 Orders Ontiveros, 1.2.840.1 [id number] 7393 Methodi 00:00:00 00:00:00 Only Clark 57070.1.[address] [place] 3.430.2.7 Hosp naye .3.735029 l .8 2022-08-11 2022-08-11 Office Ontvieros, 1.2.840.1 [id number] 104501 0751 Methodi 12:00:00 12:15:00 Visit Clark 32712.1.[address] [place] 3.430.2.7 Hosp naye .3.788709 l .8 2022-08-11 2022-08-11 Office Ontiveros, 1.2.840.1 [id number] 125678 4465 Methodi 12:00:00 12:15:00 Visit Clark 94019.1.[address] [place] 3.430.2.7 Hosp naye .3.663462 l .8 2022-08-11 2022-08-11 Travel 1.2.840.1 1.2.955.456 9616 968418 Methodi 00:00:00 00:00:[address] 3.430.2.7 0.2.7.3.698 Ho spita .3.223220 084.8 l .8 2022-08-11 2022-08-11 Travel 1.2.840.1 1.2.279.360 8674 991756 Methodi 00:00:00 00:00:[address] 3.430.2.7 0.2.7.3.698 Ho spita .3.461413 084.8 l .8 2022-08-02 2022-08-02 Travel 1.2.840.1 1.2.943.266 0876 721501 Methodi 00:00:00 00:00:[address] 3.430.2.7 0.2.7.3.698 Ho spita .3.780578 084.8 l .8 2022-08-02 2022-08-02 Travel 1.2.840.1 1.2.754.586 6453 036976 Methodi 00:00:00 00:00:[address] 3.430.2.7 0.2.7.3.698 Ho spita .3.888164 084.8 l .8 2022-07-26 2022-07-26 [facility] 1.2.840.1 [id number] 38355 Methodi 12:10:58 23:59:00 Encounter Clark 76668.1.1 626 s t Herbert 3.430.2.7 Hosp naye .3.394753 l .8 2022-07-26 2022-07-26 [facility] 1.2.840.1 [id number] 46621 Methodi 12:10:58 23:59:00 Encounter Clark 29667.1.1 626 s t Herbert 3.430.2.7 Hosp naye .3.939330 l .8 2022-07-26 2022-07-26 [facility], 1.2.840.1 [id number] 89949 92420 Methodi 09:06:47 12:09:00 Encounter Clark 13274.1.1 624 [address] [place] 3.430.2.7 Hosp naye .3.722310 l .8 2022-07-26 2022-07-26 [facility], 1.2.840.1 [id number] 02449 Methodi 09:06:47 12:09:00 Encounter Clark 55524.1.1 624 [address] t Herbert 3.430.2.7 Hosp naye .3.977340 l .8 2022-07-26 2022-07-26 [facility], 1.2.840.1 [id number] 57183 Methodi 08:25:04 09:05:00 Encounter Clark 88767.1.1 622 s t Herbert 3.430.2.7 Hosp naye .3.308832 l .8 2022-07-26 2022-07-26 [facility], 1.2.840.1 [id number] 02883 Methodi 08:25:04 09:05:00 Encounter Clark 63365.1.1 622 s t Herbert 3.430.2.7 Hosp naye .3.680588 l .8 2022-07-26 2022-07-26 Travel 1.2.840.1 1.2.241.248 1310 999678 Methodi 00:00:00 00:00:[address] 3.430.2.7 0.2.7.3.698 Ho spita .3.725937 084.8 l .8 2022-07-26 2022-07-26 Travel 1.2.840.1 1.2.597.897 1288 753290 Methodi 00:00:00 00:00:[address] 3.430.2.7 0.2.7.3.698 Ho spita .3.137496 084.8 l .8 2022-07-11 2022-07-11 Office Ekerfalguni, 1.2.840.1 561850020 120601 0119 Methodi 14:15:00 14:15:00 Visit Mary 60617.1.[address] 3.430.2.7 Hospit a .3.029074 l .8 2022-07-11 2022-07-11 Office Bam, 1.2.840.1 475014428 628338 1635 Methodi 14:15:00 14:15:00 Visit Mary 49437.1.[address] 3.430.2.7 Hospit a .3.767705 l .8 2022-07-11 2022-07-11 Travel 1.2.840.1 1.2.122.973 6923 892644 Methodi 00:00:00 00:00:[address] 3.430.2.7 0.2.7.3.698 Ho spita .3.408078 084.8 l .8 2022-07-11 2022-07-11 Travel 1.2.840.1 1.2.568.378 1728 700863 Methodi 00:00:00 00:00:[address] 3.430.2.7 0.2.7.3.698 Ho spita .3.347012 084.8 l .8 2022-07-04 2022-07-04 Office Weston, 1.2.840.1 [id number] 666006 2720 Methodi 12:45:00 13:22:26 Visit Clark 59760.1.[address] [place] 3.430.2.7 Hosp naye .3.245755 l .8 2022-07-04 2022-07-04 Office Weston, 1.2.840.1 [id number] 068855 6879 Methodi 12:45:00 13:22:26 Visit Clark 77928.1.[address] [place] 3.430.2.7 Hosp naye .3.290778 l .8 2022-07-03 2022-07-03 Travel 1.2.840.1 1.2.566.152 9758 709132 Methodi 00:00:00 00:00:[address] 3.430.2.7 0.2.7.3.698 Ho spita .3.387164 084.8 l .8 2022-07-03 2022-07-03 Travel 1.2.840.1 1.2.750.671 0381 323208 Methodi 00:00:00 00:00:[address] 3.430.2.7 0.2.7.3.698 Ho spita .3.435632 084.8 l .8 2022-06-24 2022-06-28 [facility] hbhai 1.2.840.1 [id number] Methodi 07:21:00 20:54:00 Encounter Camilo Whartonil 43254.1.[address] 3.430.2.7 Hospit a .3.898602 l .8 2022-06-24 2022-06-28 [facility] hbhai 1.2.840.1 [id number] Methodi 07:21:00 20:54:00 Encounter Camilo Whartonil 80232.1.[address] 3.430.2.7 Hospit a .3.223644 l .8 2022-06-27 2022-06-27 Prep for Cerna, 1.2.840.1 [id number] 18883 74074 Methodi 00:00:00 00:00:00 Surgery Tayolr D 98292.1.1 190 s t 3.430.2.7 Hospit a .3.970599 l .8 2022-06-27 2022-06-27 Prep for Cerna, 1.2.840.1 533163962 77213 47831 Methodi 00:00:00 00:00:00 Surgery Taylor D 11948.1.1 190 s t 3.430.2.7 Hospit a .3.435307 l .8 2022-06-24 2022-06-24 Travel 1.2.840.1 1.2.103.570 2227 629637 Methodi 00:00:00 00:00:[address] 3.430.2.7 0.2.7.3.698 Ho spita .3.721858 084.8 l .8 2022-06-24 2022-06-24 Travel 1.2.840.1 1.2.036.813 1398 530719 Methodi 00:00:00 00:00:[address] 3.430.2.7 0.2.7.3.698 Ho spita .3.497110 084.8 l .8 2022-06-14 2022-06-14 Outpatient JERSEY ContehREINIER [facility] [id number] [facility] 04:58:00 04:58:00 Quentin 89 [facility] 2022-06-07 2022-06-07 Outpatient JERSEY ContehREINIER [facility] [id number] [facility] 06:37:00 06:37:00 Quentin 64 [facility] 2022-05-20 2022-05-20 Lab [facility] [id number] [address] 00:00[facility]00 00[facility]00[facility]00 [facility]22-05-[facility] 2022-05-20 Lab [facility] [id number] [address] 00:00:00 00:00:00 Requit[facility] 2022-05-04 2022-05-04 [facility] 476 806-202 [place] 00:00:00 00:00:00 [facility] 2022-04-28 2022-04-29 Emergency Taylor Woodall 1.2.840 .1 [id number] Methodi 02:04:00 18:01:00 Laura Carbajal 07600.1.[address] Amos Pressley 3.430.2.7 [facility]ita [facility] .3.538667 l .8 2022-04-28 2022-04-29 Emergency Taylor Woodall 1.2.840 .1 [id number] Methodi 02:04:00 18:01:00 Clint Laura 34257.1.[address] Amos Pressley 3.430.2.7 [facility]ospita [facility] .3.280279 l .8 2022-04-28 2022-04-28 Travel 1.2.840.1 1.2.120.037 1187 542374 Methodi 00:00:00 00:00:[address] 3.430.2.7 0.2.7.3.698 Ho spita .3.077021 084.8 l .8 2022-04-28 2022-04-28 Travel 1.2.840.1 1.2.225.942 2042 333590 Methodi 00:00:00 00:00:[address] 3.430.2.7 0.2.7.3.698 Ho spita .3.764177 084.8 l .8 2022-04-19 2022-04-20 Outpatient nullFlavo [facility] 3 [id number] Memoria 21:20:00 04:59:59 r Medicine 56 l Carrillo Zhang n 2022-04-19 2022-04-20 Outpatient nullFlavo [facility] 3 [id number] Memoria 21:20:00 04:59:59 r Medicine 56 l Carrillo Zhang n 2022-04-19 2022-04-19 Outpatient Carrillo, [facility] MG [id number] 16:20:00 23:59:59 Antonella N 56 2022-04-19 2022-04-19 Outpatient MHIE MHIE [id number] Memoria 16:20:00 16:20:00 56 l Denis 2022-04-16 2022-04-16 Emergency Avis, 1.2.840.1 [id number] 2099 [id number] Methodi 17:10:00 22:30:[address] Latoya 3.430.2.7 Hosp naye .3.265055 l .8 2022-04-16 2022-04-16 Emergency Nweze, 1.2.840.1 [id number] 2099995 Methodi 17:10:00 22:30:[address] Latoya 3.430.2.7 Hosp naye .3.289874 l .8 2022-04-16 2022-04-16 Travel 1.2.840.1 1.2.622.404 9180 153123 Methodi 00:00:00 00:00:[address] 3.430.2.7 0.2.7.3.698 Ho spita .3.996161 084.8 l .8 2022-04-16 2022-04-16 Travel 1.2.840.1 1.2.240.844 6942 895645 Methodi 00:00:00 00:00:[address] 3.430.2.7 0.2.7.3.698 Ho spita .3.047215 084.8 l .8 2022-04-06 2022-04-15 [facility] Travon Porras. 1.2.840.1 104 419922 [id number] Methodi 21:20:00 13:07:00 Encounter Gutierrez Leal 96517.1.1 [facility] .3.279102 l .8 2022-04-06 2022-04-15 [facility] 1.2.840.1 104 783014 [id number] Methodi 21:20:00 13:07:00 Encounter Gutierrez Leal 35285.1.1 968 [facility].430.2.[facility] .3.938896 l .8 2022-04-13 2022-04-13 Anesthesia Claudio 1.2.840.1 [id number] 236 [id number] Methodi 13:41:00 14:30:00 Event Yaoyao 54743.1.[address] Pauline 3.430.2.7 Hospit a .3.498984 l .8 2022-04-13 2022-04-13 Anesthesia Snyder, 1.2.840.1 [id number] 648 5811100 Methodi 13:41:00 14:30:00 Event Yaoyao 34446.1.[address] Pauline 3.430.2.7 Hospit a .3.253745 l .8 2022-04-06 2022-04-06 Travel 1.2.840.1 1.2.915.782 6052 280866 Methodi 00:00:00 00:00:[address] 3.430.2.7 0.2.7.3.698 Ho spita .3.980172 084.8 l .8 2022-04-06 2022-04-06 Travel 1.2.840.1 1.2.063.691 3495 143234 Methodi 00:00:00 00:00:[address] 3.430.2.7 0.2.7.3.698 Ho spita .3.022382 084.8 l .8 2022-03-08 2022-03-08 Outpatient Mic Warren HCAPM DAYS LA0 [id number] [facility] 07:07:00 07:07:00 79 [facility] 2022-03-08 2022-03-08 Outpatient Mic Warren [facility] HCAPM F94 [id number] [facility] 07:07:00 07:07:00 47629 [facility] 2022-03-06 2022-03-08 Phone nullFlavo [facility] Family 3467 [id number] Memoria 15:25:04 04:59:59 Message r Medicine Priyanka davis 2022-03-06 2022-03-08 Phone nullFlavo [facility] Family 3467 [id number] Memoria 15:25:04 04:59:59 Message r Medicine 17 leonard Zhang n 2022-03-06 2022-03-07 Outpatient [facility] MG [id number] 10:25:04 23:59:59 17 2022-03-03 2022-03-03 Emergency EM Chris Carter HCAPM POLLO LA00 [id number] [facility] 12:08:00 15:51:00 00 [facility] 2022-03-03 2022-03-03 Emergency EM Chris Carter HCAPM HCAPM F945 [id number] [facility] 12:08:00 15:51:00 [facility] 2022-02-27 2022-02-27 Outpatient HARJEET King HCAPM ENDO [id number] [id number] [facility] 07:10:00 07:10:00 Adam 92 [facility] 2022-01-18 2022-01-18 Ambulatory nullFlavo [facility] 3 [id number] Memoria 15:15:00 15:15:00 Pre-Reg r Medicine 54 l Carrillo Zhang ryan 2022-01-18 2022-01-18 Ambulatory nullFlavo [facility] 3 [id number] Memoria 15:15:00 15:15:00 Pre-Reg r Medicine 54 l Carrillo Vicente ryan 2022-01-18 2022-01-18 Outpatient MHIE MHIE [id number] [facility]oria 10:15:00 10:15:00 55 l Deins 2022-01-18 2022-01-18 Outpatient Carrillo, [facility] [id number] 10:15:00 10:15:00 Antonella Davis 55 2022-01-16 2022-01-16 Outpatient MHIE MHIE [id number] Memoria 10:30:00 10:30:00 56 leonard Barrios 2022-01-16 2022-01-16 Outpatient MHIE MHIE [id number] [facility]oria 10:30:00 10:30:00 56 leonard Barrios 2022-01-05 2022-01-05 Patient Phuong Mcginnis 1.2.840.1 [id number] 21 [id number] Methodi 00:00:00 00:00:[address] 3.430.2.7 Hospit a .3.946909 l .8 2022-01-05 2022-01-05 Patient Phuong Mcginnis 1.2.840.1 [id number] 21 [id number] Methodi 00:00:00 00:00:[address] 3.430.2.7 Hospit a .3.699792 l .8 2021-12-30 2021-12-30 Office Ekeruo, 1.2.840.1 [id number] 917789 6540 Methodi 10:15:00 11:21:59 Visit Mary 04245.1.[address] 3.430.2.7 Hospit a .3.715318 l .8 2021-12-30 2021-12-30 Office Ekeruo, 1.2.840.1 [id number] 059750 1150 Methodi 10:15:00 11:21:59 Visit Mary 44893.1.[address] 3.430.2.7 Hospit a .3.011372 l .8 2021-12-30 2021-12-30 Travel 1.2.840.1 1.2.515.977 3329 762056 Methodi 00:00:00 00:00:[address] 3.430.2.7 0.2.7.3.698 Ho spita .3.617017 084.8 l .8 2021-12-30 2021-12-30 Travel 1.2.840.1 1.2.729.385 6261 132360 Methodi 00:00:00 00:00:[address] 3.430.2.7 0.2.7.3.698 Ho spita .3.879763 084.8 l .8 2021-12-19 2021-12-28 [facility] Dean 1.2.840.1 1 [id number] Methodi 12:16:00 16:05:00 Encounter Michelle Golden 77026.1.[address] 3.430.2.7 Hospit a .3.892929 l .8 2021-12-19 2021-12-28 [facility] 1.2.840.1 1 [id number] Methodi 12:16:00 16:05:00 Encounter EricamoniqueMichelle blackburn Turner Magalys 66126.1.[address] 3.430.2.7 Hospit a .3.749420 l .8 2021-12-27 2021-12-27 Anesthesia [facility] 1.2.8 40.1 [id number] Methodi 13:07:00 14:43:00 Event Nishi Shelton 14666.1.[address] 3.430.2.7 Hospit a .3.160725 l .8 2021-12-27 2021-12-27 Anesthesia [facility] Robert 1.2.8 40.1 [id number] Methodi 13:07:00 14:43:00 Event Nishi Shelton 63936.1.[address] 3.430.2.7 Hospit a .3.968775 l .8 2021-12-26 2021-12-26 Telephone Ekeruo, 1.2.840.1 [id number] 2099 993167 Methodi 00:00:00 00:00:[address] 3.430.2.7 Hospit a .3.551007 l .8 2021-12-26 2021-12-26 Telephone Ekeruo, 1.2.840.1 [id number] 2099 923082 Methodi 00:00:00 00:00:[address] 3.430.2.7 Hospit a .3.046192 l .8 2021-12-19 2021-12-21 Phone nullFlavo [facility] Family 3467 [id number] Memoria 17:07:02 05:59:59 Message r Medicine 16 l Carrillo davis 2021-12-19 2021-12-21 Phone nullFlavo [facility] Family 3467 [id number] Memoria 17:07:02 05:59:59 Message r Medicine 16 l Carrillo davis 2021-12-19 2021-12-20 Outpatient [facility] [id number] 11:07:02 23:59:59 16 2021-12-19 2021-12-19 Travel 1.2.840.1 1.2.776.906 1886 120031 Methodi 00:00:00 00:00:[address] 3.430.2.7 0.2.7.3.698 Ho spita .3.186218 084.8 l .8 2021-12-19 2021-12-19 Travel 1.2.840.1 1.2.186.186 2240 120031 Methodi 00:00:00 00:00:[address] 3.430.2.7 0.2.7.3.698 Ho spita .3.886000 084.8 l .8 2021-11-15 2021-11-15 Office [facility], 1.2.840.1 [id number] [id number] 1821 Methodi 16:30:00 16:34:07 Visit Scott 61177.1.[address] 3.430.2.7 Hospit a .3.101602 l .8 2021-11-15 2021-11-15 Office [facility], 1.2.840.1 [id number] 5668 Methodi 16:30:00 16:34:07 Visit Scott 64933.1.[address] 3.430.2.7 Hospit a .3.649938 l .8 2021-11-14 2021-11-14 [facility], 1.2.840.1 [id number] 27662 14189 Methodi 09:45:00 23:59:00 Encounter Lizauddin 96169.1.[address] 3.430.2.7 Hospit a .3.921866 l .8 2021-11-14 2021-11-14 [facility], 1.2.840.1 [id number] 95578 53039 Methodi 09:45:00 23:59:00 Encounter Lizaparkerdin 38205.1.[address] 3.430.2.7 Hospit a .3.823299 l .8 2021-11-14 2021-11-14 Travel 1.2.840.1 1.2.613.928 1231 609575 Methodi 00:00:00 00:00:[address] 3.430.2.7 0.2.7.3.698 Ho spita .3.809995 084.8 l .8 2021-11-14 2021-11-14 Travel 1.2.840.1 1.2.897.683 3120 329691 Methodi 00:00:00 00:00:[address] 3.430.2.7 0.2.7.3.698 Ho spita .3.820100 084.8 l .8 2021-10-28 2021-10-30 Phone nullFlavo [facility] 3467 [id number] Memoria 19:33:53 05:59:59 Message r Medicine 15 leonard Zhang ryan 2021-10-28 2021-10-30 Phone nullFlavo [facility] 3467 799293 Memoria 19:33:53 05:59:59 Message r Medicine 15 leonard Zhang ryan 2021-10-28 2021-10-29 Outpatient [facility] [id number] 13:33:53 23:59:59 15 2021-10-19 2021-10-21 Phone [facility] [id number] Memoria 19:38:03 05:59:59 Message r Medicine 14 leonard Zhang ryan 2021-10-19 2021-10-21 Phone [facility] 3467 [id number] Memoria 19:38:03 05:59:59 Message r Medicine 14 leonard Carrillo Zhang ryan 2021-10-19 2021-10-20 Outpatient [facility] [id number] 13:38:03 23:59:59 14 2021-10-17 2021-10-18 Outpatient nullFlavo [facility] 3 [id number] Memoria 21:15:00 05:59:59 r Medicine 53 l Vizcainojoanne Zhang ryan 2021-10-17 2021-10-18 Outpatient [facility] 3 [id number] Memoria 21:15:00 05:59:59 r Medicine 53 l Carrillo Rameyan n 2021-10-17 2021-10-17 Outpatient Michael [facility] [id number] 15:15:00 23:59:59 Antonella N 53 2021-10-17 2021-10-17 [facility]patient [facility] [id number] Memoria 15:15:00 15:15:00 54 leonard Barrios 2021-09-20 2021-09-20 Office Ahmed, 1.2.840.1 [id number] Methodi 15:30:00 16:01:04 Visit Scott [address]387.1.[address] 3.430.2.7 Hospit a .3.200165 l .8 2021-09-20 2021-09-20 Travel 1.2.840.1 1.2.414.505 [id number] Methodi 00:00:00 00:00:[address] 3.430.2.7 0.2.7.3.698 Ho spita .3.145870 084.8 l .8 2021-09-12 2021-09-13 Between nullFlavo [facility] 3467 [id number] Memoria 14:18:24 14:18:24 Visit r Medicine 63 l Carrillo davis 2021-09-12 2021-09-13 Between nullFlavo [facility] 3467 [id number] Memoria 14:18:24 14:18:24 Visit r Medicine 62 l Carrillo Zhang n 2021-09-12 2021-09-13 Outpatient [facility] [id number] 08:18:24 08:18:24 62 2021-09-12 2021-09-13 Between nullFlavo [facility] 3467 [id number] Memoria 00:56:47 00:56:47 Visit r Medicine 62 leonard davis 2021-09-12 2021-09-13 Between nullFlavo [facility] 3467 [id number] Memoria 00:56:47 00:56:47 Visit r Medicine 61 l Carrillo davis 2021-09-11 2021-09-12 Outpatient [facility] [id number] 18:56:47 18:56:47 61 2021-09-09 2021-09-10 Outpatient nullFlavo [facility] 3 [id number] Memoria 20:00:00 05:59:59 r Medicine 52 l Carrillo Zhang n 2021-09-09 2021-09-10 Outpatient nullFlavo [facility] 3 [id number] Memoria 20:00:00 05:59:59 r Medicine 52 l Carrillo Zhang n 2021-09-09 2021-09-09 Outpatient Carrlilo, [facility] [id number] 14:00:00 23:59:59 Antonella N 52 2021-09-09 2021-09-09 Outpatient [facility] [id number] Memoria 14:00:00 14:00:00 53 l Philip 2021-09-06 2021-09-08 Phone [facility] 3467 [id number] Memoria 21:38:38 05:59:59 Message r Medicine 13 leonard Zhang n 2021-09-06 2021-09-08 Phone [facility]Fl[facility] 3467 [id number] Memoria 21:38:38 05:59:59 Message r Medicine 13 leonard Zhang n 2021-09-06 2021-09-07 Outpatient [facility] MG [id number] 15:38:38 23:59:59 13 2021-09-07 2021-09-07 Office Ekeruo, 1.2.840.1 [id number] Methodi 11:00:00 11:44:58 Visit Mary [address]97.1.[address] 3.430.2.7 Hospit a .3.120908 l .8 2021-09-07 2021-09-07 Travel 1.2.840.1 1.2.409.262 [id number] Methodi 00:00:00 00:00:[address] 3.430.2.7 0.2.7.3.698 Ho spita .3.152761 084.8 l .8 2021-09-05 2021-09-06 Between nullFlavo [facility] 3467 [id number] Memoria 15:33:59 15:33:59 Visit r Medicine 59 l Carrillo Zhang n 2021-09-05 2021-09-06 Between nullFlavo [facility] 3467 [id number] Memoria 15:33:59 15:33:59 Visit r Medicine 59 l Carrillo Zhang n 2021-09-05 2021-09-06 Outpatient [facility] [id number] 09:33:59 09:33:59 59 2021-07-14 2021-07-26 Inpatient SOLIPURAM, [facility] [id number] [place] 00:00:00 00:00:00 MICHELLE 329 Method i 2021-07-19 2021-07-19 Outpatient GC_EAH_Brow PRIV PRIV [id number] [facility] 00:00:00 00:00:00 n_J [id number] Medica l 2021-07-13 2021-07-13 Outpatient OPPERMANN, [facility] [id number] [place] 00:00:00 00:00:00 KRISTIAN 104 Method i 2021-06-30 2021-06-30 Outpatient AHMED, [facility] [id number] [place] 00:00:00 00:00:00 RAZIUDDIN 273 Meth aiden 2021-06-07 2021-06-07 Outpatient EKERUO, [facility] [id number] [place] 00:00:00 00:00:00 MARY 787 Method i 2021-06-07 2021-06-07 Outpatient DAOURA, [facility] [id number] [place] 00:00:00 00:00:00 NILESH 546 Method i 2021-05-19 2021-05-26 Inpatient MATHIVANAN, [facility] [id number] [place] 00:00:00 00:00:00 COURTNEY 275 Method i 2021-05-12 2021-05-12 Outpatient AHMED, [facility] [id number] [place] 00:00:00 00:00:00 RAZIUDDIN 199 Meth aiden 2021-05-11 2021-05-11 Outpatient EKERUO, [facility] [id number] [place] 00:00:00 00:00:00 MARY 640 Method i 2021-05-062021-05-06 Outpatient EKERUO, [facility] [id number] [place] 00:00:00 00:00:00 MARY 435 Method i 2021-05-06 2021-05-06 Outpatient EKERUO, [facility] [id number] [place] 00:00:00 00:00:00 MARY 537 Method i 2021-05-03 2021-05-03 Outpatient EKERUO, [facility] [id number] [place] 00:00:00 00:00:00 MARY 709 Method i 2021-04-08 2021-04-21 Inpatient SOLIPURAM, [facility] [id number] [place] 00:00:00 00:00:00 MICHELLE 685 Method i 2021-03-09 2021-03-09 Outpatient AHMED, [facility] [id number] [place] 00:00:00 00:00:00 RAZIUDDIN 101 Meth aiden 2021-02-24 2021-02-24 [facility] [id number] Memoria 01:00:00 04:59:00 r Denis 59 l [place] Karen 2021-02-24 2021-02-24 [facility] [id number] Memoria 01:00:00 04:59:00 r Philip 59 l [place] Karen 2021-02-23 2021-02-23 Outpatient Ahmed, MHSL SL [id number] 20:00:00 23:59:00 Raziuddin 58 2021-02-23 2021-02-23 Outpatient AHMED, MHFB PUL [id number] MHFB 20:00:00 23:59:00 RAZIUDDIN 2021-02-10 2021-02-10 Outpatient AHMED, [facility] [id number] [place] 00:00:00 00:00:00 RAZIUDDIN 598 Meth aiden 2021-02-03 2021-02-08 Inpatient LAYOAN, [facility] [id number] [place] 00:00:00 00:00:00 COURTNEY 060 Method i 2021-01-20 2021-01-20 Outpatient [facility] [id number] [place] 00:00:00 00:00:00 470 Method i 2021-01-18 2021-01-19 Outpatient nullFlavo [facility] 3 [id number] Memoria 19:30:00 04:59:59 r Medicine 51 l Vizcaino Vicente n 2021-01-18 2021-01-19 Outpatient nullFlavo [facility] Family 3 [id number] Memoria 19:30:00 04:59:59 r Medicine 51 l Carrillo Zhang n 2021-01-18 2021-01-18 Outpatient Carrillo, MHMG MG [id number] 14:30:00 23:59:59 Antonella N 51 2021-01-18 2021-01-18 Outpatient MHIE IE [id number] Memoria 14:30:00 14:30:00 51 l Denis 2021-01-18 2021-01-18 Outpatient [facility] [id number] [place] 00:00:00 00:00:[address] 2021-01-14 2021-01-15 Between nullFlavo [facility] Family [id number] Memoria 13:38:03 13:38:03 Visit r Medicine 57 l Vizcaino Vicente davis 2021-01-14 2021-01-15 Between nullFlavo [facility] Family [id number] Memoria 13:38:03 13:38:03 Visit r Medicine 57 l Carrillo davis 2021-01-14 2021-01-15 Outpatient MG MG [id number] 08:38:03 08:38:03 57 2021-01-12 2021-01-12 Outpatient ORION, [facility] [id number] [place] 00:00:00 00:00:00 RAZIUDDIN [address] 2020-12-31 2021-01-05 Inpatient MARY ALICE [facility] [id number] [place] 00:00:00 00:00:00 COURTNEY 541 Method i 2020-12-17 2020-12-28 Inpatient MARY ALICE [facility] Vidya [id number] [place] 00:00:00 00:00:00 COURTNEY [address] 2020-10-11 2020-10-18 Inpatient MARY ALICE [facility] [id number] [place] 00:00:00 00:00:00 COURTNEY 271 Method i 2020-09-15 2020-09-16 Outpatient [facility]Flavo [facility] Family 3 [id number] Memoria 16:30:00 05:59:59 r Medicine 50 l Carrillo Zhang n 2020-09-15 2020-09-16 Outpatient [facility]Flavo [facility] Family 3 [id number] Memoria 16:30:00 05:59:59 r Medicine 50 l Carrillo Zhang n 2020-09-15 2020-09-15 Outpatient Carrillo, MG MG [id number] 10:30:00 23:59:59 Antonella N 50 2020-09-15 2020-09-15 Outpatient MHIE IE [id number] Memoria 10:30:00 10:30:00 50 l Denis 2020 2020-09-07 Inpatient SOLIPURAM, [facility] [id number] [place] 00:00:00 00:00:00 MICHELLE [address] 2020-08-13 2020-09-01 Inpatient SOLIPURAM, [facility] [id number] [id number] [place] 00:00:00 00:00:00 MICHELLE [address] 2020-08-13 2020-08-14 Outpt Diag nullFlavo [facility] [id number] Memoria 18:10:00 04:59:00 Services r Outpatient 06 l Imaging Denis [place] 2020-08-13 2020-08-14 Outpt Diag nullFlavo [facility] [id number] Memoria 18:10:00 04:59:00 Services r Outpatient 06 l Imaging Philip [place] 2020-08-13 2020-08-13 Outpatient Stadnyk, MH29 [id number] 13:10:00 23:59:00 Tyrell Davis 06 2020-08-11 2020-08-12 Between nullFlavo [facility] Family [id number] Memoria 17:58:19 17:58:19 Visit r Medicine 56 l Carrillo Zhang n 2020-08-11 2020-08-12 Between nullFlavo [facility] Family [id number] Memoria 17:58:19 17:58:19 Visit r Medicine 56 l Carrillo Zhang n 2020-08-11 2020-08-12 Outpatient MG [facility] [id number] 12:58:19 12:58:19 56 2020-08-03 2020-08-04 Outpatient nullFlavo [facility] Family 3 [id number] Memoria 15:15:00 04:59:59 r Medicine 49 l Carrillo Zhang n 2020-08-03 2020-08-04 Outpatient nullFlavo [facility] Family 3 [id number] Memoria 15:15:00 04:59:59 r Medicine 49 l Carrillo Zhang n 2020-08-03 2020-08-03 Outpatient Michael, MG MG [id number] 10:15:00 23:59:59 Antonella N 49 2020-08-03 2020-08-03 Outpatient MHIE MHIE [id number] Memoria 10:15:00 10:15:00 49 l Philip 2020-06-22 2020-06-23 Outpt Diag nullFlavo [facility] [id number] Memoria 17:02:00 04:59:00 Services r Outpatient 05 l Imaging Denis [place] 2020-06-22 2020-06-23 Outpt Diag nullFlavo [facility] [id number] Memoria 17:02:00 04:59:00 Services r Outpatient 05 l Imaging Philip [place] 2020-06-22 2020-06-22 Outpatient Stadnyk, 29 [facility] [id number] 12:02:00 23:59:00 Tyrell N 05 2020-06-17 2020-06-17 Ambulatory nullFlavo [facility] [id number] Memoria 19:00:00 19:00:00 Pre-Reg r Nephrology 46 l Carrillo Zhang n 2020-06-17 2020-06-17 Ambulatory nullFlavo [facility] [id number] Memoria 19:00:00 19:00:00 Pre-Reg r Nephrology 46 l Carrillo Zhang n 2020-06-17 2020-06-17 Outpatient MHIE IE [id number] Memoria 14:00:00 14:00:00 46 l Philip 2020-06-17 2020-06-17 Outpatient Vinnie- MG [facility] [id number] 14:00:00 14:00:00 Darwin Toledo 2020-06-10 2020-06-10 Outpatient MHIE MHIE [id number] Memoria 11:15:00 11:15:00 47 l Philip 2020-06-10 2020-06-10 Outpatient MHIE MHIE [id number] Memoria 11:15:00 11:15:00 47 l Denis 2020-06-02 2020-06-03 [place] [id number] Memoria 19:45:00 04:59:59 r Nephrology 49 leonard Zhang ryan 2020-06-02 2020-06-03 [place] [id number] Memoria 19:45:00 04:59:59 r Nephrology 48 leonard Zhang ryan 2020-06-02 2020-06-02 [id number] 14:45:00 23:59:59 Daca, 48 Valarie Carballo 2020-06-02 2020-06-02 Outpatient MHIE MHIE [id number] Memoria 14:45:00 14:45:00 48 leonard Denis 2020-05-20 2020-05-20 Outpatient RACHID [facility] [id number] [address] [place] [address] 00:00:00 00:00:00 FABIOLA Ernandez i 2020-03-23 2020-03-25 Phone nullFlavo MG [id number] Memoria 16:17:50 04:59:59 Message r Nephrology 12 leonard Zhang ryan 2020-03-23 2020-03-25 Phone nullFlavo MG [id number] Memoria 16:17:50 04:59:59 Message r Nephrology 12 leonard Zhang ryan 2020-03-23 2020-03-24 Outpatient MG MG [id number] 11:17:50 23:59:59 12 2020-03-18 2020-03-19 [place] [id number] Memoria 19:00:00 04:59:59 r Nephrology 41 leonard Zhang ryan 2020-03-18 2020-03-19 [place] [id number] Memoria 19:00:00 04:59:59 r Nephrology 41 l Carrillo Zhang ryan 2020-03-18 2020-03-18 [id number] 14:00:00 23:59:59 Daca, 41 Valarie Carballo 2020-03-18 2020-03-18 Outpatient MHIE MHIE [id number] Memoria 14:00:00 14:00:00 41 leonard Barrios 2020-03-08 2020-03-10 Phone nullFlavo MG [id number] Memoria 18:35:51 04:59:59 Message r Nephrology 11 leonard Barrios 2020-03-08 2020-03-10 Phone nullFlavo MG [id number] Memoria 18:35:51 04:59:59 Message r Nephrology 11 leonard Barrios 2020-03-08 2020-03-09 Outpatient MHMG MG [id number] 13:35:51 23:59:59 11 2020-02-11 2020-02-12 Outpatient nullFlavo MG Family 3 [id number] Memoria 15:15:00 04:59:59 r Medicine 45 leonard Zhang n 2020-02-11 2020-02-12 Outpatient nullFlavo [facility] Family 3 [id number] Memoria 15:15:00 04:59:59 r Medicine 45 leonard Zhang n 2020-02-11 2020-02-11 Outpatient Carrillo, MHMG MG [id number] 10:15:00 23:59:59 Antonella N 45 2020-02-11 2020-02-11 Ambulatory nullFlavo [facility] Family 3 [id number] Memoria 15:15:00 15:15:00 Pre-Reg r Medicine 44 leonard Zhang n 2020-02-11 2020-02-11 Ambulatory nullFlavo MG Family 3 [id number] Memoria 15:15:00 15:15:00 Pre-Reg r Medicine 44 leonard Zhang n 2020-02-11 2020-02-11 Outpatient MHIE MHIE [id number] Memoria 10:15:00 10:15:00 45 leonard Barrios 2020-02-11 2020-02-11 Outpatient MHIE MHIE [id number] Memoria 10:15:00 10:15:00 44 leonard Barrios 2020-02-11 2020-02-11 Outpatient Carrillo, MHMG MG [id number] 10:15:00 10:15:00 Antonella N 44 2020-02-05 2020-02-07 Phone nullFlavo MG [id number] Memoria 13:23:32 04:59:59 Message r Nephrology 10 leonard Zhang n 2020-02-05 2020-02-07 Phone nullFlavo MG [id number] Memoria 13:23:32 04:59:59 Message r Nephrology 10 leonard Zhang ryan 2020-02-05 2020-02-06 Outpatient MHMG MG [id number] 08:23:32 23:59:59 10 2020-02-05 2020-02-06 Between nullFlavo [facility] Family [id number] Memoria 14:14:54 14:14:54 Visit r Medicine 52 leonard Zhang ryan 2020-02-05 2020-02-06 Between nullFlavo [facility] Family [id number] Memoria 14:14:54 14:14:54 Visit r Medicine 52 leonard Zhang ryan 2020-02-05 2020-02-06 Outpatient MHMG MG [id number] 09:14:54 09:14:54 52 2020-02-05 2020-02-05 Outpatient MHIE MHIE [id number] Memoria 11:30:00 11:30:00 43 leonard Denis 2020-02-05 2020-02-05 Outpatient MHIE MHIE [id number] Memoria 11:30:00 11:30:00 43 leonard Denis 2020-02-02 2020-02-04 Phone nullFlavo [facility] Family [id number] Memoria 20:00:15 04:59:59 Message r Medicine 09 leonard Zhang ryan 2020-02-02 2020-02-04 Phone nullFlavo [facility] Family [id number] Memoria 20:00:15 04:59:59 Message r Medicine 09 leonard Zhang ryan 2020-02-02 2020-02-03 Outpatient MG [facility] [id number] 15:00:15 23:59:59 09 2020-01-30 2020-02-01 Phone nullFlavo [facility] Family [id number] Memoria 17:18:28 04:59:59 Message r Medicine 08 leonard Zhang ryan 2020-01-30 2020-02-01 Phone nullFlavo [facility] Family [id number] Memoria 17:18:28 04:59:59 Message r Medicine 08 leonard Zhang ryan 2020-01-30 2020-02-01 Phone nullFlavo [facility] [id number] Memoria 13:26:55 04:59:59 Message r Nephrology 07 leonard Rameycora davis 2020-01-30 2020-02-01 Phone nullFlavo [facility] [id number] Memoria 13:26:55 04:59:59 Message r Nephrology 07 l Carrillo Zhang n 2020-01-30 2020-01-31 Outpatient MHMG MG [id number] 12:18:28 23:59:59 08 2020-01-30 2020-01-31 Outpatient MHMG MG [id number] 08:26:55 23:59:59 07 2019-12-16 2019-12-17 Outpatient nullFlavo MG Family 3 [id number] Memoria 20:15:00 05:59:59 r Medicine 42 l Carrillo Zhang n 2019-12-16 2019-12-17 Outpatient nullFlavo MG Family 3 [id number] Memoria 20:15:00 05:59:59 r Medicine 42 l Carrillo Zhang n 2019-12-16 2019-12-16 Outpatient Carrillo, MG MG [id number] 14:15:00 23:59:59 Antonella Davis 42 2019-12-16 2019-12-16 Outpatient MHIE MHIE [id number] Memoria 14:15:00 14:15:00 42 leonard Denis 2019-11-13 2019-11-15 Phone nullFlavo [facility] Family [id number] Memoria 14:22:27 05:59:59 Message r Medicine 06 leonard Zhang ryan 2019-11-13 2019-11-15 Phone nullFlavo [facility] Family [id number] Memoria 14:22:27 05:59:59 Message r Medicine 06 leonard davis 2019-11-13 2019-11-14 Outpatient MHMG MG [id number] 08:22:27 23:59:59 06 2019-10-17 2019-10-19 Phone nullFlavo MG Family [id number] Memoria 16:06:04 05:59:59 Message r Medicine 05 leonard Zhang ryan 2019-10-17 2019-10-19 Phone nullFlavo [facility] Family [id number] Memoria 16:06:04 05:59:59 Message r Medicine 05 leonard Zhang n 2019-10-17 2019-10-18 Outpatient MHMG MG [id number] 10:06:04 23:59:59 2019-10-02 2019-10-03 Between nullFlavo MG [id number] Memoria 20:05:03 20:05:03 Visit r Nephrology 45 leonard Barrios 2019-10-02 2019-10-03 Between nullFlavo [facility] [id number] Memoria 20:05:03 20:05:03 Visit r Nephrology 45 leonard Barrios 2019-10-02 2019-10-03 Outpatient [facility] [id number] 14:05:03 14:05:03 45 2019-10-02 2019-10-03 Outpatient nullFlavo [facility] [id number] Memoria 20:45:00 05:59:59 r Nephrology 38 leonard Zhang n 2019-10-02 2019-10-03 Outpatient nullFlavo [facility] [id number] Memoria 20:45:00 05:59:59 r Nephrology 38 leonard Zhang n 2019-10-02 2019-10-02 [facility] [id number] 14:45:00 23:59:59 [place], Noel Carballo 2019-10-02 2019-10-[address] [id number] Memoria 14:45:00 14:45:00 38 leonard Barrios 2019-09-26 2019-09-27 Between nullFlavo [facility] [id number] Memoria 00:07:10 00:07:10 Visit r Nephrology 43 leonard Barrios 2019-09-26 2019-09-27 Between nullFlavo [facility] [id number] Memoria 00:07:10 00:07:10 Visit r Nephrology 43 leonard Barrios 2019-09-25 2019-09-26 Outpatient [facility] [id number] 18:07:10 18:07:10 43 2019-09-25 2019-09-25 Outpatient IE IE [id number] Memoria 09:00:00 09:00:00 39 leonard Barrios 2019-09-25 2019-09-25 Outpatient IE IE [id number] Memoria 09:00:00 09:00:00 39 leonard Denis 2019-09-16 2019-09-17 Between nullFlavo [facility] Family [id number] Memoria 21:47:12 21:47:12 Visit r Medicine 41 leonard Zhang ryan 2019-09-16 2019-09-17 Between nullFlavo [facility] Family [id number] Memoria 21:47:12 21:47:12 Visit r Medicine 41 leonard Zhang n 2019-09-16 2019-09-17 Outpatient MHMG MHMG [id number] 15:47:12 15:47:12 41 2019-08-19 2019-08-20 Between nullFlavo MG Family [id number] Memoria 22:13:13 22:13:13 Visit r Medicine 40 leonard Zhang n 2019-08-19 2019-08-20 Between nullFlavo MG Family [id number] Memoria 22:13:13 22:13:13 Visit r Medicine 40 leonard Zhang n 2019-08-19 2019-08-20 Outpatient MHMG MHMG [id number] 17:13:13 17:13:13 40 2019-08-15 2019-08-16 Outpatient nullFlavo [facility] Family 3 [id number] Memoria 14:45:00 04:59:59 r Medicine 40 leonard Zhang n 2019-08-15 2019-08-16 Outpatient nullFlavo [facility] Family 3 [id number] Memoria 14:45:00 04:59:59 r Medicine 40 leonard Zhang n 2019-08-15 2019-08-15 Outpatient Carrillo, MG MG [id number] 09:45:00 23:59:59 Antonella N 40 2019-08-15 2019-08-15 Outpatient MHIE MHIE [id number] Memoria 09:45:00 09:45:00 40 leonard Barrios 2019-08-07 2019-08-07 Ambulatory nullFlavo [facility] Family 3 [id number] Memoria 16:00:00 16:00:00 Pre-Reg r Medicine 36 leonard Zhang n 2019-08-07 2019-08-07 Ambulatory nullFlavo [facility] Family 3 [id number] Memoria 16:00:00 16:00:00 Pre-Reg r Medicine 36 leonard Zhang n 2019-08-07 2019-08-07 Outpatient MHIE MHIE [id number] Memoria 11:00:00 11:00:00 36 leonard Barrios 2019-08-07 2019-08-07 Outpatient Carrillo, MHMG MG [id number] 11:00:00 11:00:00 Antonella N 36 2019-07-31 2019-08-01 Outpatient nullFlavo [facility] [id number] Memoria 15:00:00 04:59:59 r Nephrology 35 leonard Zhang n 2019-07-31 2019-08-01 Outpatient nullFlavo [facility] [id number] Memoria 15:00:00 04:59:59 r Nephrology 35 leonard Zhang n 2019-07-31 2019-07-31 Outpatient Carrillo, MG MG [id number] 10:00:00 23:59:59 Antonella N 35 2019-07-31 2019-07-31 Outpatient IE IE [id number] Memoria 12:00:00 12:00:00 37 leonard Barrios 2019-07-31 2019-07-31 Outpatient MHIE MHIE [id number] Memoria 12:00:00 12:00:00 37 leonard Barrios 2019-07-31 2019-07-31 Outpatient MHIE MHIE [id number] Memoria 10:00:00 10:00:00 35 leonard Barrios 2019-07-03 2019-07-05 Phone nullFlavo [facility] Family [id number] Memoria 15:15:06 04:59:59 Message r Medicine 04 leonard Zhang n 2019-07-03 2019-07-05 Phone nullFlavo [facility] Family [id number] Memoria 15:15:06 04:59:59 Message r Medicine 04 leonard Zhang n 2019-07-03 2019-07-05 Phone nullFlavo [facility] [id number] Memoria 15:10:51 04:59:59 Message r Nephrology 03 leonard Zhang n 2019-07-03 2019-07-05 Phone nullFlavo MG [id number] Memoria 15:10:51 04:59:59 Message r Nephrology 03 leonard Zhang n 2019-07-03 2019-07-04 Outpatient MG MG [id number] 10:15:06 23:59:59 04 2019-07-03 2019-07-04 [id number] 10:10:51 23:59:59 03 2019-07-03 2019-07-03 [place] [id number] Memoria 20:00:00 20:00:00 Pre-Reg r Nephrology 34 l Carrillo Zhang n 2019-07-03 2019-07-03 Ambulatory nullFlavo [facility] [id number] Memoria 20:00:00 20:00:00 Pre-Reg r Nephrology 34 leonard davis 2019-07-03 2019-07-03 Outpatient [facility] [id number] Memoria 15:00:00 15:00:00 34 leonard Barrios 2019-07-03 2019-07-03 [facility] [id number] 15:00:00 15:00:00 Angela Toledo Valarie Carballo 2019-06-29 2019-06-30 Between nullFlavo MG [id number] Memoria 20:15:16 20:15:16 Visit r Nephrology 34 leonard Barrios 2019-06-29 2019-06-30 Between nullFlavo MG [id number] Memoria 20:15:16 20:15:16 Visit r Nephrology 34 leonard Barrios 2019-06-29 2019-06-30 Outpatient [facility] [id number] 15:15:16 15:15:16 34 2019-06-11 2019-06-13 Phone nullFlavo MG [id number] Memoria 15:29:54 04:59:59 Message r Nephrology 02 leonard Barrios 2019-06-11 2019-06-13 Phone nullFlavo MG [id number] Memoria 15:29:54 04:59:59 Message r Nephrology 02 leonard Barrios 2019-06-11 2019-06-12 Outpatient [facility] [id number] 10:29:54 23:59:59 02 2019-06-12 2019-06-12 [place] [id number] Memoria 16:30:00 16:30:00 Pre-Reg r Nephrology 29 l Carrillo davis 2019-06-12 2019-06-12 [place] [id number] Memoria 16:30:00 16:30:00 Pre-Reg r Nephrology 29 l Carrillo davis 2019-06-12 2019-06-12 [place] [id number] Memoria 16:15:00 16:15:00 Pre-Reg r Nephrology 30 l Carrillo davis 2019-06-12 2019-06-12 [place] [id number] Memoria 16:15:00 16:15:00 Pre-Reg r Nephrology 30 leonard davis 2019-06-12 2019-06-12 Ambulatory nullFlavo [facility] Family 3 [id number] Memoria 15:15:00 15:15:00 Pre-Reg r Medicine 31 leonard davis 2019-06-12 2019-06-12 Ambulatory nullFlavo [facility] Family 3 [id number] Memoria 15:15:00 15:15:00 Pre-Reg r Medicine 31 leonard davis 2019-06-12 2019-06-12 Outpatient MHIE MHIE [id number] Memoria 11:30:00 11:30:00 29 leonard Denis 2019-06-12 2019-06-12 Outpatient [place]- MG MG [id number] 11:30:00 11:30:00 Peemoira 29 Valarie Haris 2019-06-12 2019-06-12 Outpatient MHIE MHIE [id number] Memoria 11:15:00 11:15:00 30 leonard Philip 2019-06-12 2019-06-12 Outpatient [place]- MG MG [id number] 11:15:00 11:15:00 Dacmoira 30 Valarie Haris 2019-06-12 2019-06-12 Outpatient MHIE MHIE [id number] Memoria 10:15:00 10:15:00 31 leonard Philip 2019-06-12 2019-06-12 Outpatient Carrillo, MG MG [id number] 10:15:00 10:15:00 Antonella Davis 2019-06-09 2019-06-10 Inpatient Chelsea [facility] [facility] [id number] [place] 10:05:00 17:55:00 EDUIN [facility] 2019-05-12 2019-05-14 Outpatient Chelsea BARRAGAN [facility] [id number] [place] 21:36:00 19:00:00 EDUIN [facility] 2019-05-12 2019-05-13 Outpatient nullFlavo [facility] [id number] Memoria 20:40:00 04:59:59 r Care 33 l Lise Philip 2019-05-12 2019-05-13 Outpatient nullFlavo [facility] [id number] Memoria 20:40:00 04:59:59 r Care 33 leonard Lezama Denis 2019-05-12 2019-05-12 Outpatient Van MHMG MHMG [id number] 15:40:00 23:59:59 Radha Carlito waters 2019-05-12 2019-05-12 Outpatient MHIE MHIE [id number] Memoria 15:40:00 15:40:00 33 leonard Denis 2019-03-27 2019-03-28 Outpatient nullFlavo [facility] Family 3 [id number] Memoria 15:15:00 04:59:59 r Medicine 32 leonard Zhang ryan 2019-03-27 2019-03-28 Outpatient nullFlavo [facility] Family 3 [id number] Memoria 15:15:00 04:59:59 r Medicine 32 leonard Zhang ryan 2019-03-27 2019-03-27 Outpatient Vinnie- [facility]MG [id number] 10:15:00 23:59:59 Philly Toledo 2019-03-27 2019-03-27 Outpatient MHIE MHIE [id number] Memoria 10:15:00 10:15:00 32 leonard Denis 2019-01-05 2019-01-06 Between nullFlavo [facility] Family [id number] Memoria 19:00:16 19:00:16 Visit r Medicine 29 leonard Vizcaino Vicente ryan 2019-01-05 2019-01-06 Between nullFlavo MG Family [id number] Memoria 19:00:16 19:00:16 Visit r Medicine 29 leonard Vizcaino Vicente davis 2019-01-05 2019-01-06 Outpatient MG MG [id number] 14:00:16 14:00:16 29 2019-01-02 2019-01-03 Between nullFlavo [facility]MG [id number] Memoria 15:02:37 15:02:37 Visit r Nephrology 27 leonard Vizcaino Vicente davis 2019-01-02 2019-01-03 Between nullFlavo [facility] [id number] Memoria 15:02:37 15:02:37 Visit r Nephrology 27 leonard Carrillo davis 2019-01-02 2019-01-03 Outpatient MG MHMG [id number] 10:02:37 10:02:37 27 2019-01-02 2019-01-03 Outpatient nullFlavo [facility] [id number] Memoria 18:45:00 04:59:59 r Nephrology 28 leonard Zahng n 2019-01-02 2019-01-03 [place] [id number] Memoria 18:45:00 04:59:59 r Nephrology 28 l Carrillo Zhang n 2019-01-02 2019-01-03 Outpatient nullFlavo [facility] Family 3 [id number] Memoria 14:15:00 04:59:59 r Medicine 22 leonard Zhang n 2019-01-02 2019-01-03 Outpatient nullFlavo [facility] Family 3 [id number] Memoria 14:15:00 04:59:59 r Medicine 22 leonard Zhang n 2019-01-02 2019-01-02 Outpatient [place]- [facility] [id number] 13:45:00 23:59:59 Reynold Toledo 2019-01-02 2019-01-02 Outpatient Carrillo, [facility] [id number] 09:15:00 23:59:59 Antonella Davis 22 2019-01-02 2019-01-02 Outpatient MHIE MHIE [id number] Memoria 13:45:00 13:45:00 28 leonard Barrios 2019-01-02 2019-01-02 Outpatient MHIE MHIE [id number] Memoria 09:15:00 09:15:00 22 leonard Barrios 2018-12-31 2019-01-01 Between nullFlavo MG [id number] Memoria 23:59:47 23:59:47 Visit r Nephrology 26 leonard Zhang ryan 2018-12-31 2019-01-01 Between nullFlavo MG [id number] Memoria 23:59:47 23:59:47 Visit r Nephrology 26 leonard Zhang ryan 2018-12-31 2019-01-01 Outpatient MG MG [id number] 18:59:47 18:59:47 26 2018-12-27 2018-12-28 Between nullFlavo MG [id number] Memoria 22:00:33 22:00:33 Visit r Nephrology 24 l Carrillo Zhang ryan 2018-12-27 2018-12-28 Between nullFlavo MG [id number] Memoria 22:00:33 22:00:33 Visit r Nephrology 24 leonard Zhang n 2018-12-27 2018-12-28 Outpatient MG MG [id number] 16:00:33 16:00:33 24 2018-12-27 2018-12-28 Between nullFlavo MG [id number] Memoria 04:48:44 04:48:44 Visit r Nephrology 23 leonard davis 2018-12-27 2018-12-28 Between nullFlavo MG [id number] Memoria 04:48:44 04:48:44 Visit r Nephrology 23 leonard Zhang n 2018-12-26 2018-12-27 Outpatient [facility] MG [id number] 22:48:44 22:48:44 23 2018-11-14 2018-11-14 [place] [id number] Memoria 20:30:00 20:30:00 Pre-Reg r Nephrology 27 leonard davis 2018-11-14 2018-11-14 [place] [id number] Memoria 20:30:00 20:30:00 Pre-Reg r Nephrology 27 l Carrillo Zhang n 2018-11-14 2018-11-14 [place] [id number] Memoria 18:40:00 18:40:00 Pre-Reg r Nephrology 24 leonard davis 2018-11-14 2018-11-14 [place] [id number] Memoria 18:40:00 18:40:00 Pre-Reg r Nephrology 24 leonard davis 2018-11-14 2018-11-14 Outpatient [facility] [id number] Memoria 14:30:00 14:30:00 28 leonard Barrios 2018-11-14 2018-11-14 Out[facility] [place] MG [id number] 14:30:00 14:30:00 Cordell Toledo 2018-11-14 2018-11-14 Outpatient [place] MG [id number] 14:30:00 14:30:00 Cordell Toledo 2018-11-14 2018-11-14 Outpatient [facility] [id number] Memoria 12:40:00 12:40:00 24 leonard Barrios 2018-11-14 2018-11-14 [facility] [id number] 12:40:00 12:40:00 Yesi Toledo 2018-11-14 2018-11-14 [facility] [id number] 12:40:00 12:40:00 Yesi Toledo 2018-11-07 2018-11-07 Ambulatory [facility]Flavo [facility] [id number] Memoria 15:30:00 15:30:00 Pre-Reg r Internal 25 l [facility] 2018-11-07 2018-11-07 Ambulatory nullFlavo [facility] [id number] Memoria 15:30:00 15:30:00 Pre-Reg r Internal 25 [facility] 2018-11-07 2018-11-07 Outpatient [facility] [id number] Memoria 09:30:00 09:30:[address] [place] [address] 2018-11-07 2018-11-07 Outpatient [facility] [id number] 09:30:00 09:30:00 25 2018-07-11 2018-08-10 Ambulatory nullFlavo [facility] [id number] Memoria 12:45:00 12:45:00 Pre-Reg r Internal 23 [facility] 2018-07-11 2018-08-10 Ambulatory nullFlavo [facility] [id number] Memoria 12:45:00 12:45:00 Pre-Reg r Internal 23 [facility] 2018-07-11 2018-08-10 Outpatient MG [facility] [id number] 07:45:00 07:45:00 23 2018-07-18 2018-07-19 [place] [id number] Memoria 19:15:00 04:59:59 r Nephrology 26 l Carrillo Zhang ryan 2018-07-18 2018-07-19 [place] [id number] Mem[facility] 19:15:00 04:59:59 r Nephrology 26 l Carrillo Zhang ryan 2018-07-18 2018-07-19 [place] [id number] Memoria 18:00:00 04:59:59 r Nephrology 21 l Vizcaino Vicente davis 2018-07-18 2018-07-19 Outpatient nullFlavo [id number] Memoria 18:00:00 04:59:59 r Nephrology 21 l Carrillo Zhang ryan 2018-07-18 2018-07-18 [id number] 14:15:00 23:59:59 DacKim pizarro Valarie Carballo 2018-07-18 2018-07-18 [id number] 13:00:00 23:59:59 Dacmoira 21 Valarie Carballo 2018-07-18 2018-07-18 Outpatient IE IE [id number] Memoria 14:15:00 14:15:00 26 leonard Denis 2018-07-18 2018-07-18 Outpatient MHIE IE [id number] Memoria 13:00:00 13:00:00 21 leonard Denis 2018-07-11 2018-07-11 Outpatient MHIE IE [id number] Memoria 07:45:00 07:45:00 23 leonard Denis 2018-06-11 2018-06-12 Outpatient nullFlavo [facility] Family 3 [id number] Memoria 18:30:00 04:59:59 r Medicine 20 l Carrillo Zhang ryan 2018-06-11 2018-06-12 Outpatient nullFlavo MG Family 3 [id number] Memoria 18:30:00 04:59:59 r Medicine 20 lenoard Zhang n 2018-06-11 2018-06-11 Outpatient Carrillo, MG MG [id number] 13:30:00 23:59:59 Antonella Davis 20 2018-06-11 2018-06-11 Outpatient IE IE [id number] Memoria 13:30:00 13:30:00 20 leonard Denis 2018-01-10 2018-01-11 [place] [id number] Memoria 16:00:00 04:59:59 r Nephrology 19 l Carrillo Zhang ryan 2018-01-10 2018-01-11 [place] [id number] Memoria 16:00:00 04:59:59 r Nephrology 19 leonard Zhang ryan 2018-01-10 2018-01-10 [id number] 11:00:00 23:59:59 Daca 19 Valarie Carballo 2018-01-10 2018-01-10 Outpatient Vinnie- [facility] MG [id number] 11:00:00 23:59:59 Ludivina Toledo Valarie Haris 2018-01-10 2018-01-10 Outpatient MHIE MHIE [id number] Memoria 11:00:00 11:00:00 19 leonard Denis 2018-01-09 2018-01-10 Outpatient nullFlavo [facility] Family 3 [id number] Memoria 15:00:00 04:59:59 r Medicine 18 leonard Vizcaino Vicente ryan 2018-01-09 2018-01-10 Outpatient nullFlavo [facility] Family 3 [id number] Memoria 15:00:00 04:59:59 r Medicine 18 leonard PostVizcaino Vicente davis 2018-01-09 2018-01-09 Outpatient Carrillo, MHMG MHMG [id number] 10:00:00 23:59:59 Antonella N 18 2018-01-09 2018-01-09 Outpatient Carrillo, MHMG MG [id number] 10:00:00 23:59:59 Antonella N 18 2018-01-09 2018-01-09 Outpatient MHIE MHIE [id number] Memoria 10:00:00 10:00:00 18 leonard Barrios 2017-07-19 2017-07-19 Outpatient MHIE MHIE [id number] Memoria 10:40:00 10:40:00 16 leonard Barrios 2017-07-19 2017-07-19 Outpatient MHIE MHIE [id number] Memoria 10:40:00 10:40:00 16 leonard Barrios 2017-06-27 2017-06-27 Outpatient MHIE MHIE [id number] Memoria 11:30:00 11:30:00 17 leonard Barrios 2017-06-27 2017-06-27 Outpatient MHIE MHIE [id number] Memoria 11:30:00 11:30:00 17 leonard Barrios 2017-03-01 2017-03-01 Outpatient MHIE MHIE [id number] Memoria 11:40:00 11:40:00 11 leonard Barrios 2017-03-01 2017-03-01 Outpatient MHIE MHIE [id number] Memoria 11:40:00 11:40:00 11 leonard Barrios 2016-12-26 2016-12-26 Outpatient MHIE MHIE [id number] Memoria 14:30:00 14:30:00 15 leonard Barrios 2016-12-26 2016-12-26 Outpatient MHIE MHIE [id number] Memoria 14:30:00 14:30:00 15 leonard Barrios 2016-11-27 2016-11-27 Outpatient MHIE MHIE [id number] Memoria 10:00:00 10:00:00 08 leonard Barrios 2016-11-27 2016-11-27 Outpatient MHIE MHIE [id number] Memoria 10:00:00 10:00:00 08 leonard Barrios 2016-11-17 2016-11-17 Bedded [facility] [id number] Memoria 11:48:35 14:30:00 Outpatient r Denis 13 leonard Jones 2016-11-17 2016-11-17 Bedded [facility]Fl[facility] [id number] Memoria 11:48:35 14:30:00 Outpatient magalys Barrios 13 leonard Jones 2016-11-17 2016-11-17 Outpatient Smith, SL MHSL [id number] 05:48:35 08:30:00 Reinaldo Posadas 13 2016-11-09 2016-11-09 Outpatient MHIE MHIE [id number] Memoria 13:15:00 13:15:00 14 leonard Barrios 2016-11-09 2016-11-09 Outpatient MHIE MHIE [id number] Memoria 13:15:00 13:15:00 14 leonard Barrios 2016-10-18 2016-10-18 Outpatient MHIE MHIE [id number] Memoria 09:30:00 09:30:00 12 leonard Barrios 2016-10-18 2016-10-18 Outpatient MHIE MHIE [id number] Memoria 09:30:00 09:30:00 13 leonard Barrios 2016-10-18 2016-10-18 Outpatient MHIE MHIE [id number] Memoria 09:30:00 09:30:00 12 leonard Barrios 2016-10-18 2016-10-18 Outpatient MHIE MHIE [id number] Memoria 09:30:00 09:30:00 13 leonard Barrios 2016-10-12 2016-10-12 Outpatient MHIE MHIE [id number] Memoria 10:20:00 10:20:00 09 leonard Barrios 2016-10-12 2016-10-12 Outpatient [facility] [id number] Memoria 10:20:00 10:20:00 09 leonard RameyDenis 2016-07-13 2016-07-13 Outpatient [facility] [id number] Memoria 13:00:00 13:00:00 04 leonard Philip 2016-07-13 2016-07-13 Outpatient [facility] [id number] Memoria 13:00:00 13:00:00 04 leonard Denis 2016-05-24 2016-05-24 Outpatient [facility] [id number] Memoria 11:15:00 11:15:00 06 leonard Philip 2016-05-24 2016-05-24 Outpatient [facility] [id number] Memoria 11:15:00 11:15:00 06 leonard Philip 2016-04-13 2016-05-13 OP Therapy nullFlavo SMR [id number] Memoria 13:00:00 04:59:00 Patients magalys Stout 03 leonard Barrios 2016-04-13 2016-05-13 OP Therapy nullFlavo SMR [id number] Memoria 13:00:00 04:59:00 Patients magalys Stout 03 leonard Barrios 2016-04-13 2016-05-12 Outpatient Johnson, 2.16.840. 2.16.840.1. 3 [id number] 08:00:00 23:59:00 Jose Francisco M [id number] 3.615.55 5.55 2016-03-14 2016-04-13 OP Therapy nullFlavo SMR [id number] Memoria 17:39:00 04:59:00 Patients magalys Stout 02 leonard Rameyann 2016-03-14 2016-04-13 OP Therapy nullFlavo SMR [id number] Memoria 17:39:00 04:59:00 Patients magalys Girish 02 leonard Barrios 2016-03-14 2016-04-12 Outpatient Johnson, 2.16.840. 2.16.840.1. 3 [id number] 12:39:00 23:59:00 Jose Francisco M [id number] 3.615.55 5.55 2016-03-09 2016-04-08 OP Therapy nullFlavo SMR [facility] [id number] Memoria 19:00:00 04:59:00 Patients r [place] 01 leonard Philip 2016-03-09 2016-04-08 OP Therapy nullFlavo SMR [place] [id number] Memoria 19:00:00 04:59:00 Patients r [place] 01 [facility] 2016-03-09 2016-04-07 Outpatient Elizabeth 2.16.840. 2.16.840.1. 3 [id number] 14:00:00 23:59:00 Jose Francisco Cecelia [id number] 3.615.69 5.69 2016-03-13 2016-03-14 Outpt Diag nullFlavo [facility] [id number] Memoria 16:14:00 04:59:00 Services r Outpatient 04 l Imaging Philip [place] 2016-03-13 2016-03-14 Outpt Diag nullFlavo [facility] [id number] Memoria 16:14:00 04:59:00 Services r Outpatient 04 l Imaging Philip [place] 2016-03-13 2016-03-13 Outpatient [place] [id number] 11:14:00 23:59:00 Jv Toledoeta Haris 2016-02-08 2016-03-09 OP Therapy nullFlavo SMR [place] [id number] Memoria 19:00:00 04:59:00 Patients r [place] 00 leonard Philip 2016-02-08 2016-03-09 OP Therapy nullFlavo SMR [place] [id number] Memoria 19:00:00 04:59:00 Patients r [place] 00 [facility] 2016-02-08 2016-03-08 Outpatient Elizabeth 2.16.840. 2.16.840.1. 3 [id number] 14:00:00 23:59:00 Jose Francisco Blackburn [id number] 3.615.69 5.69 2016-03-02 2016-03-[address] [id number] Memoria 10:20:00 10:20:00 [facility] 2016-03-02 2016-03-[address] [facility] [id number] Memoria 10:20:00 10:20:00 [facility] 2016-02-29 2016-03-01 Outpt Diag nullFlavo [facility] [id number] Memoria 14:59:00 04:59:00 Services r Outpatient 03 l Imaging Denis Soto 2016-02-29 2016-03-01 Outpt Diag nullFlavo [facility] [id number] Memoria 14:59:00 04:59:00 Services r Outpatient 03 l Imaging Denis Soto 2016-02-29 2016-02-29 Outpatient Marsha Lazo28 [id number] 09:59:00 23:59:00 [place] 2016-01-20 2016-01-21 Outpt Diag nullFlavo [facility] [id number] Memoria 18:11:00 04:59:00 Services r Outpatient 01 l Imaging Denis Mares 2016-01-20 2016-01-21 Outpt Diag nullFlavo [facility] [id number] Memoria 18:11:00 04:59:00 Services r Outpatient 01 l Imaging Denis [place] 2016-01-20 2016-01-20 Outpatient LazoMarsha dowell 29 [id number] [id number] 13:11:00 23:59:00 [place] 2015-12-30 2015-12-30 Outpatient 2.16.840. 2.16.840.1. 3 [id number] Memoria 12:50:31 19:25:00 [id number] 3.2081.20 81.2000 [facility]-12-30 2015-12-30 Outpatient nullFlavo [facility] [id number] Memoria 12:50:31 19:25:00 r l Denis 2015-12-30 2015-12-30 Outpatient nullFlavo [facility] [id number] Memoria 12:50:31 19:25:00 r l Denis 2015-11-30 2015-12-01 Outpt Diag nullFlavo [facility] [id number] Memoria 12:58:00 05:59:00 Services r Outpatient 00 l Imaging Denis [place] 2015-11-30 2015-12-01 Outpt Diag nullFlavo [facility] [id number] Memoria 12:58:00 05:59:00 Services r Outpatient 00 l Imaging Denis [place] 2015-11-30 2015-11-30 Outpatient LazoMarsha dowell 29 [id number] 06:58:00 23:59:00 [place] 00 2015-11-19 2015-11-[address] [facility] [id number] Memoria 10:15:00 10:15:00 02 leonard Denis 2015-11-19 2015-11-19 Outpatient [facility] [id number] Memoria 10:15:00 10:15:00 02 leonard Barrios 2015-09-02 2015-09-02 Outpatient [facility] [id number] Memoria 11:30:00 11:30:00 00 leonard Barrios 2015-09-02 2015-09-02 Outpatient [facility] [id number] Memoria 11:30:00 11:30:00 00 [facility] 2013-12-18 2013-12-18 Outpatient [facility]Flavo [facility] [id number] Memoria 01:16:00 05:59:00 r Denis [id number] [place] 2013-12-18 2013-12-18 Outpatient nullFlavo [facility] [id number] Memoria 01:16:00 05:59:00 r Denis [id number] [place] 2013-12-17 2013-12-17 Outpatient [facility] 2.16.840. 2.16.840. 1. [id number] 19:16:00 23:59:00 , Yusef 1.076205. [id number] Bernadette 3.615.0.1 5.0.895 87 8190-02-26 2013-12-17 Outpatient nullFlavo [id number] Memoria 19:16:00 19:16:00 r [place] 01 [facility] 2013-12-17 2013-12-17 Outpatient nullFlavo [id number] Memoria 19:16:00 19:16:00 r [place] 01 [facility] 2013-12-02 2013-12-02 Outpatient nullFlavo [id number] Memoria 19:43:00 19:43:00 r [place] 00 Denis 2013-12-02 2013-12-02 Outpatient nullFlavo [id number] Memoria 19:43:00 19:43:00 r [place] 00 Denis Results Test Description Test Time Test Comments Results Result Sour e Comments PET/CT, CARDIAC 2022-09-26 Reason for PERF REST AND 16:05:00 exam:->angina [facility]ESS [facility] : 1955 Sex: F FINAL REPORT PROCEDURE: MYOCARDIAL PERFUSION PET/CT IMAGING (Rest/Stress)CPT CODE: 59017 INDICATION: Evaluation for chest pain CARDIOVASCULAR PROFILE:CAD [...] is no prior study for comparison. Signed: Gama, Corbin MDReport Verified Date/Time: 09/26/2022 16:05:42 C METABOLIC [...] s not applicable for dialysis will moseley Chemical Processing Technician ID - MARCOSpecimen slightly [id number] 05:55:08 Test Item Value Reference Range Interpretation Comments MAGNESIUM (BEAKER) 1.9 mg/dL 1.6-2.6 Specimen slightly (test code = 627) hemolyzed Chemical Processing Technician ID - [id number] 05:55:08 Test Item Value Reference Range Interpretation Comments PHOSPHORUS (BEAKER) 3.4 mg/dL 2.3-4.7 Specimen slightly (test code = 604) hemolyzed Chemical Processing Technician ID - MARCOCBC W/PLT COUNT & AUTO [id number] 04:43:14 Test Item Value Reference Range Interpretation [...] 2801) PROTEIN ELECTROPHORESIS, SERUM WITH REFLEX TO [id number] 16:42:33 Test Item Value Reference Range Interpretation [...] 2615) malnutrition or a protein losing state. [id number] Crystal Moore MD (BEAKER) (test code = (electronic signature) 2616) PROTEIN TOTAL SERUM, 6.0 gm/dL 6.0-8.3 SPEP (BEAKER) (test code = 2660) Clinical Watch Commander - SFOperator ID - LETICIA BOperator ID - ADMPERIPHERAL BLOOD SMEAR - PATHOLOGIST [id number] 14:33:15 Test Item Value Reference Range Interpretation Comments PERIPHERAL SMR REVIEW Cell counts confirmed. (BEAKER) (test code = There is macrocytic 2640) anemia. Platelets are decreased with no significant platelet clumps or satellitism identified. [id number] Evan Dixon (BEAKER) (test code = Milka 6404) HEPATITIS B SURFACE [id number] 10:29:09 Test Item Value Reference Range Interpretation Comments HEPATITIS B SURFACE ANTIGEN (2) Nonreactive Nonreactive (BEAKER) (test code = 7615) Specimen is considered negative for HBsAg.Transthoracic 2D echo w/ doppler (cw/pw/color)2022-09-25 08:20:07Ejection FractionSLEH ECHO HEARTLAB MKCKESSON [facility]CH[facility]an[facility]D [facility] w/ doppler (cw/pw/color) 2022-09-25 08:20:07Ejection FractionSLE ECHO [facility]/ do[facility] (cw/pw/color)2022-09-25 08:20:07Ejection FractionSLE ECHO [facility]ARTLAB [facility] w/ doppler (cw/pw/color)2022-09-25 08:20:07Ejection FractionSLE ECHO HEARTLAB [facility] Transthoracic 2D echo w/ doppler (cw/pw/color)2022-09-25 08:20:07Ejection [facility]SLE [facility] C [id number] 05:41:18 Test Item Value Reference Range Interpretation Comments HEPATITIS C ANTIBODY (BEAKER) Nonreactive Nonreactive (test code = 367) Chemical Processing Technician ID - EMMANUELBASIC METABOLIC [id number] 05:22:16 Test Item Value Reference Range Interpretation [...] (test code = 697) EGFR (BEAKER) 5 Interpretati on of eGFR (test code = mL/min/1.73 values [...] not appl icable for dialysis patien ts Chemical Processing Technician ID - [id number] 05:21:47 Test Item Value Reference Range Interpretation Comments MAGNESIUM (BEAKER) (test code = 2.0 mg/dL 1.6-2.6 627) Chemical Processing Technician ID - [id number] 05:21:47 Test Item Value Reference Range Interpretation Comments PHOSPHORUS (BEAKER) (test code = 4.8 mg/dL 2.3-4.7 H 604) Chemical Processing Technician ID - ANTONIOCBC W/PLT COUNT & AUTO [id number] 05:05:48 Test Item Value Reference Range Interpretation [...] (BEAKER) (test code = 2801) BASIC METABOLIC [id number] 05:39:02 Test Item Value Reference Range Interpretation [...] not appl icable for dialysis patien ts Chemical Processing Technician ID - JUANITA [id number] 05:34:03 Test Item Value Reference Range Interpretation Comments MAGNESIUM (BEAKER) (test code = 1.9 mg/dL 1.6-2.6 627) Chemical Processing Technician ID - JUANITA [id number] 05:34:03 Test Item Value Reference Range Interpretation Comments PHOSPHORUS (BEAKER) (test code = 5.9 mg/dL 2.3-4.7 H 604) Chemical Processing Technician ID - JUANITA WCBC W/PLT COUNT & AUTO [id number] 04:51:11 Test Item Value Reference Range Interpretation [...] (test code = 2801) HIGH SENSITIVITY TROPONIN [id number] 18:47:20 Test Item Value Reference Range Interpretation Comments HIGH SENSITIVITY 22 pg/ml See_Comment H [Automated message] TROPONIN I (test code = The system which 2597328) generated this result transmitted ref erence range: <=17. Th e reference range was not used to int erpret this result as normal/abnormal . Chemical Processing Technician ID - LETICIA BThe RESIDENT ASSOCIATE STAT High Sensitivity Troponin-I results should be used in conjunction with other diagnostic information such as ECG, clinical observations and information, and patient symptoms to aid in the diagnosis of DC.[id number] 18:35:03 Test Item Value Reference Range Interpretation Comments POTASSIUM (BEAKER) (test code = 3.1 meq/L 3.5-5.1 L 379) Chemical Processing Technician ID - LETICIA JUSTIN, CHEST, 1 VIEW, NON [id number] 16:19:00Reason for exam:->pulm edemaShould this be performed at the bedside?->Yes [facility] : 1955 Sex: FFINAL REPORT [...] contours. Additional findings: None. Signed: Samia Rodriguez Verified Date/Time: 09/23/2022 16:19:33 [id number] 16:00:35 Test Item Value Reference Range Interpretation Comments THYROID STIMULATING HORMONE 1.121 uIU/mL 0.350-4.940 (BEAKER) (test code = 772) Chemical Processing Technician ID - LETICIA BHIGH SENSITIVITY TROPONIN [id number] 15:45:53 Test Item Value Reference Range Interpretation Comments HIGH SENSITIVITY 23 pg/ml See_Comment H [Automated message] TROPONIN I (test code = The system which 9079911) generated this result transmitted ref erence range: <=17. Th e reference range was not used to int erpret this result as normal/abnormal . Chemical Processing Technician ID - LETICIA BThe RESIDENT ASSOCIATE STAT High Sensitivity Troponin-I results should be used in conjunction with other diagnostic information such as ECG, clinical observations and information, and patient symptoms to aid in the diagnosis of DC.B-TYPE NATRIURETIC FACTOR (BNP)2022-09-23 15:45:53 Test Item Value Reference Range Interpretation Comments B-TYPE NATRIURETIC PEPTIDE (BEAKER) 395 pg/mL 0-100 H (test code = 700) Chemical Processing Technician ID - LETICIA BCOMPREHENSIVE METABOLIC [id number] 15:42:17 Test Item Value Reference Range Interpretation [...] G3b Moderately to s everely 30-44 G4 Sever ly decreased 15-29 G5 Kidney failure <15Repo rted eGFR is based on the CKD-EPI 2021 equation t hat does not use a race coefficientEsti mated GFR is not as accur ate as Creatinine Josseline stratton in predicting glom erular filtration rate . Estimated GFR is not appl icable for dialysis patien ts Chemical Processing Technician ID - LETICIA [id number] 15:39:33 Test Item Value Reference Range Interpretation Comments MAGNESIUM (BEAKER) (test code = 1.9 mg/dL 1.6-2.6 627) Chemical Processing Technician ID - LETICIA [id number] 15:39:33 Test Item Value Reference Range Interpretation Comments PHOSPHORUS (BEAKER) (test code = 5.0 mg/dL 2.3-4.7 H 604) Chemical Processing Technician ID - LETICIA BCBC W/PLT COUNT & AUTO [id number] 15:23:08 Test Item Value Reference Range Interpretation [...] (BEAKER) (test code = 2801) ECG 12 [id number] 22:49:39 Test Item Value Reference Range Interpretation [...] ECG of 28-APR-2022 02:20,-QRS axis shifted right- [address]2022-11-06 22:49:39 Test Item Value Reference Range Interpretation [...] ECG of 28-APR-2022 02:20,-QRS axis shifted right- [address]2022-11-06 22:49:39 Test Item Value Reference Range Interpretation [...] ECG of 28-APR-2022 02:20,-QRS axis [facility] [Presence] in Respiratory specimen by DANIEL with probe [id number] 04:29:38 Test Item Value Reference Range Interpretation Comments SARS-CoV-2 (COVID-19) RNA Not detected [Presence] in Respiratory specimen by DANIEL with probe detection (test code = 60552-8) Whether patient is employed in a Unknown healthcare setting (test code = 18570-2) Whether the patient has symptoms Unknown related to condition of interest (test code = 29130-0) Whether the patient was Unknown hospitalized for condition of interest (test code = 46044-2) Whether the patient was admitted Unknown to intensive care unit (ICU) for condition of interest (test code = 93755-8) Whether patient resides in a Unknown congregate care setting (test code = 42577-5) status (test code = Unknown 25542-9) Date and time of symptom onset Unknown (test code = 73505-7) [facility] ED Preliminary Interpretation - Not an [id number] 03:37:43 Test Item Value Reference Range Interpretation Comments GUICHO (test code = GUICHO) Francisco Dean MD 09/09/2022 3:33 [facility] Preliminary Interpretation - Not an OrderPerformed by: Francisco Dean MDAuthorized by: Francisco Dean MD ECG reviewed by ED Physician in the absence of a house servant: yes Interpretation: Interpretation: abnormal Quality: Tracing quality: Limited by artifactRate: ECG rate: 94 ECG rate assessment: normal Rhythm: Rhythm: atrial fibrillation Ectopy: Ectopy: none QRS: QRS axis: Right QRS intervals: NormalConduction: Conduction: normal ST segments: ST segments: NormalT waves: T waves: non-specific Comments: QRS 82. QTc 420. Lab Interpretation Abnormal (test code = 46663-8) [facility] ED Preliminary Interpretation - Not an [id number] 03:37:43 Test Item Value Reference Range Interpretation Comments GUICHO (test code = GUICHO) Francisco Dean MD 09/09/2022 3:33 [facility] ED Preliminary Interpretation - Not an OrderPerformed by: Francisco Dean MDAuthorized by: Francisco Dean MD ECG reviewed by ED Physician in the absence of a house servant: yes Interpretation: Interpretation: abnormal Quality: Tracing quality: Limited by artifactRate: ECG rate: 94 ECG rate assessment: normal Rhythm: Rhythm: atrial fibrillation Ectopy: Ectopy: none QRS: QRS axis: Right QRS intervals: NormalConduction: Conduction: normal ST segments: ST segments: NormalT waves: T waves: non-specific Comments: QRS 82. QTc 420. Lab Interpretation Abnormal (test code = 41229-2) [id number] 17:49:00 Test Item Value Reference Interpretation Comments [...] = Performing RAC) Organization Information: Site ID: [facility] Name: [facility] Address: [address] [place] [phone] Director: Yusef Boyce Lab Abnormal Interpretation (test code = 13831-8) [facility] stimulating [id number] 17:49:00 Test Item Value Reference Range Interpretation Comments TSH (test See_Comment [Automated mes herems] code = The system ic h 3016-3) generated this result transmit yahir reference range : 0.40 - 4.50 mIU /L. The reference r edy was not used to interpret this result as normal/abnormal . GUICHO (test FASTING:NO FASTING: code = GUICHO) NO RAC (test Performing code = RAC) Organization Information: Site ID: A Name: [facility] Address: [address] [place] [phone] Director: Yusef Buttridge [facility] Hospital[facility] D 25 hydroxy [id number] 17:49:00 Test Item Value Reference Range Interpretation [...] please refer to http://educatio n.Q uestDiagnostics .co m/faq/JYO747 (T his link is being provided for informational/e gini ational purpose s only.) GUICHO (test code = FASTING:NO FASTING: GUICHO) NO RAC (test code = Performing RAC) Organization Information: Site ID: RGA [facility]: [facility] Address: [address] [place] [phone] Director: Yusef Boyce [facility] HospitalParathyroid [id number] 17:49:00 Test Item Value Reference Interpretation Comments [...] RAC) Organization Information: Site ID: RGA Name: [employer] [facility] Lab Address: [address] [place] [phone] Director: Yusef Buttridge Lab Abnormal Interpretation (test code = 47670-8) [facility] Hospital[facility] stimulating [id number] 17:49:00 Test Item Value Reference Range Interpretation [...] code = RAC) Organization Information: Site ID: LAURIEA Name: [facility] Address: [address] [place] [phone] Director: [facility] D 25 hydroxy [id number] 17:49:00 Test Item Value Reference Range Interpretation [...] please refer to http://educatio n.Q uestDiagnostics .co m/faq/ZMB974 (T his link is being provided for informational/e gini ational purpose s only.) GUICHO (test code = FASTING:NO FASTING: GUICHO) NO RAC (test code = Performing RAC) Organization Information: Site ID: RGA [facility]: [facility] Address: [address] [place] [phone] Director: Yusef Leonard [facility]NiviaWyandot [facility] HospitalParathyroid [id number] 17:49:00 Test Item Value Reference Interpretation Comments [...] = Performing RAC) Organization Information: Site ID: [facility] Name: [facility] Lab Address: [address] [place] [phone] Director: Yusef Boyce Lab Abnormal Interpretation (test code = 87682-7) [facility] Hospital[facility] stimulating [id number] 17:49:00 Test Item Value Reference Range Interpretation [...] code = RAC) Organization Information: Site ID: [facility] Name: [facility] Address: [address] [place] [address] Director: Yusef Boyce [facility] HospitalVitamin D 25 hydroxy [id number] 17:49:00 Test Item Value Reference Range Interpretation [...] please refer to [email or web address] (T his link is being provided for informational/e gini ational purpose s only.) GUICHO (test code = FASTING:NO FASTING: GUICHO) NO RAC (test code = Performing RAC) Organization Information: Site ID: [facility] Name: [facility] Lab Address: [address] [place] [phone] Director: Yusef Boyce [facility]2022-09-07 04:51:00 Test Item Value Reference Range Interpretation Comments POC glucose (test code = 129 mg/dL 65-99 H Ope rator Name: [id number]) [facility] TimmonsRadha ce ID: [id number]~Laura table : HMW Notified copy chief Interpretation (test Abnormal code = 08512-8) [facility]2022-09-07 04:51:00 Test Item Value Reference Range Interpretation Comments POC glucose (test code = 129 mg/dL 65-99 H Ope rator Name: [id number]) [facility] IainRadha ce ID: [id number]~Laura table : HMW Notified copy chief Interpretation (test Abnormal code = 12194-7) [facility]2022-09-07 04:51:00 Test Item Value Reference Range Interpretation Comments POC glucose (test code = 129 mg/dL 65-99 H Ope rator Name: [id number]) [facility] TimmonsRadha ce ID: [id number]~Laura table : HMW Notified copy chief Interpretation (test Abnormal code = 59972-1) [facility], (w Contrast, Strain and 3D if needed)2022-06-26 14:28:07 Test Item Value Reference Interpretation Comments Range RA pressure (test mmHg code = 8896600495) EF (test code = 50 % 54-74 A 6760816538) IVS,d (test code = 0.92 cm 0.6-0.9 A 9887269567) IVS s 2D (test code 1.08 cm = 9514592267) LVPWD,d (test code = 0.93 cm 0.60-1.19 3506493502) LVPW s PLAX (test 1.13 cm code = 7020635586) LV,s (test code = 2.94 cm 4835007370) LVOT Diam,S (test 1.98 cm code = 3081505376) LV BURGESS VOL (test 66.04 ml 46-106 code = 1006148006) LV SYS VOL (test 33.32 ml 14-42 code = 1964844871) MV Peak E Jonathan (test 1.61 m/s code = 3432897406) MV Peak A Jonathan (test 0.58 m/s code = 4191525019) E/A ratio (test code See_Comment A [Autom ated = 2764070787) message] The system which generated this result transmitted reference range : <=0.8. The reference range was not used to interpret this result as normal/abnormal . E wave decelartion See_Comment A [Automat ed time (test code = message] T he 3581218404) system which generated this result transmitted reference range : 200 msec. The reference range was not used to interpret this result as normal/abnormal . LV,d (test code = 3.90 cm 3808006944) IVS/LVPW,2D (test code = 6315568201) LV EF,2D (test code 57.26 % = 8355129424) LV FS Cube 2D (test code = 8173379918) LV FS Teich 2D (test code = 0874979635) LV SV Teich 2D (test 32.73 ml code = 0091504312) LV Vol s Teich PSAX 33.32 ml (test code = 4390420849) LVOT stroke volume 0.46 cm3 (test code = 5777949080) Left Atrium 5.30 cm See_Comment A [Automated Dimension Anterior message] The (test code = system which 9117364737) generated this result transmitted reference range : <=3.8. The reference range was not used to interpret this result as normal/abnormal . LA Vol MOD A4C (test 130.09 ml code = 1810364470) LA area s A4C (test 36.52 cm2 code = 1430498626) LVOT area (test code 3.08 cm2 = 4314160547) LVOT Vmax (test code 0.85 m/s = 2662031557) AoV Mean PG (test See_Comment [Automate d code = 5932978496) message] The system which generated this result transmitted reference range : 20 mmHg. The reference range was not used to interpret this result as normal/abnormal . AoV Peak PG (test mmHg code = 2593067621) AV LVOT peak mmHg gradient (test code = 6705013971) AoV Area, Vmax (test 1.94 cm2 See_Comment [Autom ated code = 8581406570) message] The system which generated this result transmitted reference range : >=1.5. The reference range was not used to interpret this result as normal/abnormal . LVOT VTI (CM) (test 15.00 cm code = 8880000363) AoV Vmax (test code 1.35 m/s = 5536254977) AoV Vmn (test code = 0.82 m/s 7550614063) AoV Area, VTI (test 2.30 cm2 code = 1214036849) LVOT CO (test code = 4.72 l/min 9204122536) LVOT HR for LVOT CO bpm (test code = 2138340332) Velocity Ratio 0.63 m/s (V1/V2) (test code = 4689) MV mean gradient See_Comment [Automated (test code = message] The 8566454350) system which generated this result transmitted reference range : 5 mmHg. The reference range was not used to interpret this result as normal/abnormal . MR peak grad (test mmHg code = 6786425823) MV stenosis pressure 30.12 ms See_Comment [Autom ated 1/2 time (test code message] The = 2743114451) system which generated this result transmitted reference range : <=150. The reference range was not used to interpret this result as normal/abnormal . MV E A ratio (test code = 7037170505) MV valve area p 1/2 7.30 cm2 method (test code = 5118651659) MV VTI Tips (test 0.15 m code = 9477277843) MV Vmax (test code = 0.72 m 1344754873) RVSP (test code = See_Comment A [Automate d 5155686279) message] The system which generated this result transmitted reference range : 40.00 mmHg. The reference range was not used to interpret this result as normal/abnormal . TR pk grad (test mmHg code = 6138524925) TR Vpeak (test code 2.85 m/s = 5314467403) RVSP (TR) (test code mmHg = 0498528017) RVOT Vmax (test code 0.44 m/s = 5882994071) PV Mean Grad (test mmHg code = 0242091031) PV Pk Grad (test See_Comment [Automated code = 4792779207) message] The system which generated this result transmitted reference range : 36 mmHg. The reference range was not used to interpret this result as normal/abnormal . PV VTI (test code = 0.17 m 9243590540) RVOT pk grad (test mmHg code = 8988456011) PV VMAX (test code = 1.05 m/s See_Comment [Autom ated 1996268751) message] The system which generated this result transmitted reference range : <=3. The reference range was not used to interpret this result as normal/abnormal . PV Vmn (test code = 2169916103) Ao Root Diameter 2.95 cm See_Comment [Automated (test code = message] The 7370192294) system which generated this result transmitted reference range : <=3.99. The reference range was not used to interpret this result as normal/abnormal . Ao Root Diameter 2.95 cm (test code = 4357160639) Ascending aorta 2.58 cm (test code = 3938061286) Pred METS R1 (test code = 1187871691) Pred Exer Dur R1 (test code = 2043259586) MV Decel slope (test 15.54 m/s2 code = 4396383640) LVPW pct thck PLAX 20.67 % (test code = 2931492398) LV vol s cube 2D 25.42 ml (test code = 8229073559) LV vol d cube 2D 59.47 ml (test code = 6127805196) LV SV Cube 2D (test 34.05 ml code = 8336353196) IVS pct thck PLAX 17.04 % (test code = 7629794327) Calc MPHR (test code bpm = 6795352987) 85 of MPHR (test code = 3775055221) RVOT VTI (test code 0.08 m = 5884229681) RVOT Vmn (test code 0.30 m/s = 8701994011) RVOT mean grad (test mmHg code = 6853555888) MAX Pred HR (test code = 7616111662) LVOT mean grad (test mmHg code = 8802959972) Aov area Vmn (test 2.31 cm2 code = 7870765407) MV AE ratio (test code = 8612259249) LVOT Vmn (test code = 6387604208) MR Vmax (test code = 4.65 m/s 1001635909) AoV VTI (test code = 0.20 m 1649065342) LVOT VTI (test code 0.15 m = 4897373375) GUICHO (test code = GUICHO) Left Ventricle: [...] artifact. Lab Interpretation Abnormal (test code = 01219-9) [facility], (w Contrast, Strain and 3D if needed)2022-06-26 14:28:07 Test Item Value Reference Interpretation Comments Range RA pressure (test mmHg code = 3609579374) EF (test code = 50 % 54-74 A 9819127391) IVS,d (test code = 0.92 cm 0.6-0.9 A 7588308086) IVS s 2D (test code 1.08 cm = 9128236479) LVPWD,d (test code = 0.93 cm 0.60-1.19 0155074523) LVPW s PLAX (test 1.13 cm code = 6594593735) LV,s (test code = 2.94 cm 2650700705) LVOT Diam,S (test 1.98 cm code = 3867296706) LV BURGESS VOL (test 66.04 ml 46-106 code = 0153558984) LV SYS VOL (test 33.32 ml 14-42 code = 8982179369) MV Peak E Jonathan (test 1.61 m/s code = 7577722254) MV Peak A Jonathan (test 0.58 m/s code = 0896828253) E/A ratio (test code See_Comment A [Autom ated = 2349231816) message] The system which generated this result transmitted reference range : <=0.8. The reference range was not used to interpret this result as normal/abnormal . E wave decelartion See_Comment A [Automat ed time (test code = message] T he 9365581086) system which generated this result transmitted reference range : 200 msec. The reference range was not used to interpret this result as normal/abnormal . LV,d (test code = 3.90 cm 3751218856) IVS/LVPW,2D (test code = 0925138622) LV EF,2D (test code 57.26 % = 6072091591) LV FS Cube 2D (test code = 0363307466) LV FS Teich 2D (test code = 8207498798) LV SV Teich 2D (test 32.73 ml code = 4323179045) LV Vol s Teich PSAX 33.32 ml (test code = 1323036911) LVOT stroke volume 0.46 cm3 (test code = 8080967086) Left Atrium 5.30 cm See_Comment A [Automated Dimension Anterior message] The (test code = system which 8845482202) generated this result transmitted reference range : <=3.8. The reference range was not used to interpret this result as normal/abnormal . LA Vol MOD A4C (test 130.09 ml code = 6791017102) LA area s A4C (test 36.52 cm2 code = 6048789378) LVOT area (test code 3.08 cm2 = 0948028192) LVOT Vmax (test code 0.85 m/s = 1665203773) AoV Mean PG (test See_Comment [Automate d code = 9857033931) message] The system which generated this result transmitted reference range : 20 mmHg. The reference range was not used to interpret this result as normal/abnormal . AoV Peak PG (test mmHg code = 1937678823) AV LVOT peak mmHg gradient (test code = 7722130606) AoV Area, Vmax (test 1.94 cm2 See_Comment [Autom ated code = 7719315576) message] The system which generated this result transmitted reference range : >=1.5. The reference range was not used to interpret this result as normal/abnormal . LVOT VTI (CM) (test 15.00 cm code = 5344290618) AoV Vmax (test code 1.35 m/s = 3591950245) AoV Vmn (test code = 0.82 m/s 0241526881) AoV Area, VTI (test 2.30 cm2 code = 4249666491) LVOT CO (test code = 4.72 l/min 6616109221) LVOT HR for LVOT CO bpm (test code = 4537385374) Velocity Ratio 0.63 m/s (V1/V2) (test code = 4689) MV mean gradient See_Comment [Automated (test code = message] The 0720973243) system which generated this result transmitted reference range : 5 mmHg. The reference range was not used to interpret this result as normal/abnormal . MR peak grad (test mmHg code = 3820035382) MV stenosis pressure 30.12 ms See_Comment [Autom ated 1/2 time (test code message] The = 1601932987) system which generated this result transmitted reference range : <=150. The reference range was not used to interpret this result as normal/abnormal . MV E A ratio (test code = 9497191838) MV valve area p 1/2 7.30 cm2 method (test code = 4948544237) MV VTI Tips (test 0.15 m code = 6912364617) MV Vmax (test code = 0.72 m 6340040634) RVSP (test code = See_Comment A [Automate d 3851091660) message] The system which generated this result transmitted reference range : 40.00 mmHg. The reference range was not used to interpret this result as normal/abnormal . TR pk grad (test mmHg code = 8838644757) TR Vpeak (test code 2.85 m/s = 3771893322) RVSP (TR) (test code mmHg = 0503439549) RVOT Vmax (test code 0.44 m/s = 7783505937) PV Mean Grad (test mmHg code = 9614299686) PV Pk Grad (test See_Comment [Automated code = 9301672249) message] The system which generated this result transmitted reference range : 36 mmHg. The reference range was not used to interpret this result as normal/abnormal . PV VTI (test code = 0.17 m 5703275439) RVOT pk grad (test mmHg code = 8421949500) PV VMAX (test code = 1.05 m/s See_Comment [Autom ated 9138011668) message] The system which generated this result transmitted reference range : <=3. The reference range was not used to interpret this result as normal/abnormal . PV Vmn (test code = 6323094461) Ao Root Diameter 2.95 cm See_Comment [Automated (test code = message] The 4792830019) system which generated this result transmitted reference range : <=3.99. The reference range was not used to interpret this result as normal/abnormal . Ao Root Diameter 2.95 cm (test code = 4888806923) Ascending aorta 2.58 cm (test code = 8046454824) Pred METS R1 (test code = 5733444415) Pred Exer Dur R1 (test code = 1491095899) MV Decel slope (test 15.54 m/s2 code = 3154028956) LVPW pct thck PLAX 20.67 % (test code = 2756741095) LV vol s cube 2D 25.42 ml (test code = 2196360813) LV vol d cube 2D 59.47 ml (test code = 0228924386) LV SV Cube 2D (test 34.05 ml code = 3326952781) IVS pct thck PLAX 17.04 % (test code = 8497430466) Calc MPHR (test code bpm = 1074488373) 85 of MPHR (test code = 2048043448) RVOT VTI (test code 0.08 m = 4714793557) RVOT Vmn (test code 0.30 m/s = 6876733048) RVOT mean grad (test mmHg code = 1696670136) MAX Pred HR (test code = 8434377105) LVOT mean grad (test mmHg code = 8219120173) Aov area Vmn (test 2.31 cm2 code = 9565831377) MV AE ratio (test code = 4093453744) LVOT Vmn (test code = 6034633524) MR Vmax (test code = 4.65 m/s 4596207749) AoV VTI (test code = 0.20 m 9338047880) LVOT VTI (test code 0.15 m = 8780841115) GUICHO (test code = GUICHO) Left Ventricle: [...] artifact. Lab Interpretation Abnormal (test code = 55117-4) [place] VoARS-CoV-2 (COVID-19) RNA [Presence] in Respiratory specimen by DANIEL with probe [id number] 19:34:22 Test Item Value Reference Range Interpretation Comments SARS-CoV-2 (COVID-19) RNA [Presence] Detected in Respiratory specimen by DANIEL with probe detection (test code = 80538-5) Whether patient is employed in a Unknown healthcare setting (test code = 08736-6) Whether the patient has symptoms Unknown related to condition of interest (test code = 36403-5) Whether the patient was hospitalized Unknown for condition of interest (test code = 29532-8) Whether the patient was admitted to Unknown intensive care unit (ICU) for condition of interest (test code = 11784-9) Whether patient resides in a Unknown congregate care setting (test code = 11246-7) status (test code = Unknown 95700-0) Date and time of symptom onset (test Unknown code = 91104-0) [facility] METABOLIC [id number] 16:39:00 Test Item Value Reference Range Interpretation [...] = 8.8 mg/dL 8.0-10.5 N CA) PROTHROMBIN [id number] 16:33:00 Test Item Value Reference Range Interpretation [...] (to prevent recurrent infar ct). CBC W/AUTO [id number] 16:23:00 Test Item Value Reference Range Interpretation [...] code NO = MDIFF) Hepatitis B surface [id number] 21:36:32 Test Item Value Reference Range Interpretation Comments Hep B S Ab (test code <8.0 See_Comment [Auto mated = 32620-7) message] The system which generated this result transmit yahir reference range : <8.0 mIU/mL. Th e reference range was not used to interpret this result as normal/abnormal . GUICHO (test code = GUICHO) Chemical Processing Technician ID - DB Lab Interpretation Normal (test code = 62894-4) [facility] B surface [id number] 21:36:32 Test Item Value Reference Range Interpretation Comments Hep B S Ab (test code <8.0 See_Comment [Auto mated = 20682-5) message] The system which generated this result transmit yahir reference range : <8.0 mIU/mL. Th e reference range was not used to interpret this result as normal/abnormal . GUICHO (test code = GUICHO) Chemical Processing Technician ID - DB Lab Interpretation Normal (test code = 91628-1) [facility] [id number] 21:36:32 Test Item Value Reference Range Interpretation Comments Hep B S Ab (test code <8.0 See_Comment [Auto mated = 30523-9) message] The system which generated this result transmit yahir reference range : <8.0 mIU/mL. Th e reference range was not used to interpret this result as normal/abnormal . GUICHO (test code = GUICHO) Chemical Processing Technician ID - DB Lab Interpretation Normal (test code = 50512-2) [facility] [id number] 21:36:32 Test Item Value Reference Range Interpretation Comments Hep B S Ab (test code <8.0 See_Comment [Auto mated = 75895-1) message] The system which generated this result transmit yahir reference range : <8.0 mIU/mL. Th e reference range was not used to interpret this result as normal/abnormal . GUICHO (test code = GUICHO) Chemical Processing Technician ID - DB Lab Interpretation Normal (test code = 86285-0) [facility] B surface [id number] 21:36:32 Test Item Value Reference Range Interpretation Comments Hep B S Ab (test code <8.0 See_Comment [Auto mated = 58301-4) message] The system which generated this result transmit yahir reference range : <8.0 mIU/mL. Th e reference range was not used to interpret this result as normal/abnormal . GUICHO (test code = GUICHO) Chemical Processing Technician ID - DB Lab Interpretation Normal (test code = 04643-5) [facility] B surface cvkjnrlx1819-73-12 21:36:32 Test Item Value Reference Range Interpretation Comments Hep B S Ab (test code <8.0 See_Comment [Auto mated = 89101-3) message] The system which generated this result transmit yahir reference range : <8.0 mIU/mL. Th e reference range was not used to interpret this result as normal/abnormal . GUICHO (test code = GUICHO) Chemical Processing Technician ID - DB Lab Interpretation Normal (test code = 71821-8) [facility] B surface [id number] 21:36:32 Test Item Value Reference Range Interpretation Comments Hep B S Ab (test code <8.0 See_Comment [Auto mated = 64870-8) message] The system which generated this result transmit yahir reference range : <8.0 mIU/mL. Th e reference range was not used to interpret this result as normal/abnormal . GUICHO (test code = GUICHO) Chemical Processing Technician ID - DB Lab Interpretation Normal (test code = 02308-2) [facility] B SURFACE [id number] 21:36:32 Test Item Value Reference Range Interpretation Comments HEPATITIS B SURFACE ANTIBODY < mIU/mL <8.0 (BEAKER) (test code = 647) Chemical Processing Technician [facility] [id number] 21:24:22 Test Item Value Reference Range Interpretation Comments Hepatitis B surface Nonreactive Nonreactive antigen (test code = 5195-3) GUICHO (test code = GUICHO) Specimen is considered negative for HBsAg. Lab Interpretation (test Normal code = 34469-0) [facility] surface [id number] 21:24:22 Test Item Value Reference Range Interpretation Comments Hepatitis B surface Nonreactive Nonreactive antigen (test code = 5195-3) GUICHO (test code = GUICHO) Specimen is considered negative for HBsAg. Lab Interpretation (test Normal code = 46234-4) [facility] B SURFACE [id number] 21:24:22 Test Item Value Reference Range Interpretation Comments HEPATITIS B SURFACE ANTIGEN (2) Nonreactive Nonreactive (BEAKER) (test code = 2585) Specimen is considered negative for HBsAg.Transthoracic Echocardiogram Complete, (w Contrast, Strain and 3D if needed)2022-04-13 13:23:07 Test Item Value Reference Interpretation Comments Range EF (test code = 66 % 54-74 0601259694) IVS,d (test code = 1.03 cm 0.6-0.9 A 5442348503) LVPWD,d (test code = 1.27 cm 0.60-1.19 A 3240222522) LV,s (test code = 2.56 cm 9973947464) LVOT Diam,S (test 2.01 cm code = 7744388538) LV BURGESS VOL (test 69.20 ml 46-106 code = 4687532262) LV SYS VOL (test 23.74 ml 14-42 code = 9913556731) MV Peak E Jonathan (test 1.20 m/s code = 2976432762) MV Peak A Jonathan (test 0.47 m/s code = 2943734655) E/A ratio (test code See_Comment A [Autom ated = 2504941329) message] The system which generated this result transmitted reference range : <=0.8. The reference range was not used to interpret this result as normal/abnormal . E wave decelartion See_Comment A [Automat ed time (test code = message] T he 7033795992) system which generated this result transmitted reference range : 200 msec. The reference range was not used to interpret this result as normal/abnormal . LV,d (test code = 3.98 cm 8034844743) IVS/LVPW,2D (test code = 8437278083) LV EF,2D (test code 73.32 % = 5775743656) LV FS Cube 2D (test code = 4637778931) LV FS Teich 2D (test code = 1176750282) LV SV Teich 2D (test 45.46 ml code = 7272285829) LV Vol s Teich PSAX 23.74 ml (test code = 7439615657) LVOT stroke volume 0.35 cm3 (test code = 4174750594) Left Atrium 4.52 cm See_Comment A [Automated Dimension Anterior message] The (test code = system which 6966773703) generated this result transmitted reference range : <=3.8. The reference range was not used to interpret this result as normal/abnormal . LA Vol MOD A4C (test 83.62 ml code = 3483022740) LA area s A4C (test 28.59 cm2 code = 2546533555) LA Ao Ratio Mmode (test code = 0151650020) LVOT area (test code 3.17 cm2 = 3168825196) LVOT Vmax (test code 0.62 m/s = 4576561756) AoV Mean PG (test See_Comment [Automate d code = 9859644333) message] The system which generated this result transmitted reference range : 20 mmHg. The reference range was not used to interpret this result as normal/abnormal . AoV Peak PG (test mmHg code = 2818795230) AV LVOT peak mmHg gradient (test code = 4565145866) AoV Area, Vmax (test 2.00 cm2 See_Comment [Autom ated code = 4724316099) message] The system which generated this result transmitted reference range : >=1.5. The reference range was not used to interpret this result as normal/abnormal . LVOT VTI (CM) (test 11.00 cm code = 4372905019) AoV Vmax (test code 0.98 m/s = 9666250458) AoV Vmn (test code = 0.65 m/s 4425383094) AoV Area, VTI (test 2.42 cm2 code = 8864060406) Velocity Ratio 0.63 m/s (V1/V2) (test code = 4689) MR peak grad (test mmHg code = 5192452050) MV stenosis pressure 31.00 ms See_Comment [Autom ated 1/2 time (test code message] The = 4419090952) system which generated this result transmitted reference range : <=150. The reference range was not used to interpret this result as normal/abnormal . MV E A ratio (test code = 3147770669) MV valve area p 1/2 7.10 cm2 method (test code = 8766714969) E prime lat (test code = 4136815286) E katherine sept (test code = 7281629962) RVSP (test code = See_Comment A [Automate d 4066506143) message] The system which generated this result transmitted reference range : 40.00 mmHg. The reference range was not used to interpret this result as normal/abnormal . RA pressure (test mmHg code = 6286954039) TR pk grad (test mmHg code = 8760397928) TR Vpeak (test code 3.51 m/s = 8233258514) RVSP (TR) (test code mmHg = 4681122762) RVOT Vmax (test code 0.46 m/s = 4137497082) PV Pk Grad (test See_Comment [Automated code = 5182738853) message] The system which generated this result transmitted reference range : 36 mmHg. The reference range was not used to interpret this result as normal/abnormal . RVOT pk grad (test mmHg code = 4198835371) PV VMAX (test code = 1.15 m/s See_Comment [Autom ated 8405697015) message] The system which generated this result transmitted reference range : <=3. The reference range was not used to interpret this result as normal/abnormal . Ao root annulus 2.82 cm (test code = 6622736524) Ao Root Diameter 3.23 cm See_Comment [Automated (test code = message] The 1294061772) system which generated this result transmitted reference range : <=3.99. The reference range was not used to interpret this result as normal/abnormal . Ao Root Diameter 3.23 cm (test code = 5103039150) Ascending aorta 3.69 cm (test code = 0791194483) Pred METS R1 (test code = 3373010955) Pred Exer Dur R1 (test code = 3552055884) MV Decel slope (test 11.26 m/s2 code = 5663766496) LV vol s cube 2D 16.83 ml (test code = 9765564004) LV vol d cube 2D 63.08 ml (test code = 3834017126) LV SV Cube 2D (test 46.25 ml code = 2306580387) Calc MPHR (test code bpm = 9539132283) 85 of MPHR (test code = 4480455943) MAX Pred HR (test code = 5015192614) LVOT mean grad (test mmHg code = 6544069361) Aov area Vmn (test 1.92 cm2 code = 2138173892) MV AE ratio (test code = 7374617034) LVOT Vmn (test code = 4748370048) MR Vmax (test code = 4.22 m/s 5061761111) AoV VTI (test code = 0.15 m 2010418005) LVOT VTI (test code 0.11 m = 2999848781) GUICHO (test code = GUICHO) Left Ventricle: [...] tachycardia. Lab Interpretation Abnormal (test code = 03569-2) [facility] (w Contrast, Strain and 3D if needed)2022-04-13 13:23:07 Test Item Value Reference Interpretation Comments Range EF (test code = 66 % 54-74 1639097741) IVS,d (test code = 1.03 cm 0.6-0.9 A 8485035674) LVPWD,d (test code = 1.27 cm 0.60-1.19 A 4818304414) LV,s (test code = 2.56 cm 0337803908) LVOT Diam,S (test 2.01 cm code = 5562526381) LV BURGESS VOL (test 69.20 ml 46-106 code = 4588766760) LV SYS VOL (test 23.74 ml 14-42 code = 8733176645) MV Peak E Jonathan (test 1.20 m/s code = 4804183578) MV Peak A Jonathan (test 0.47 m/s code = 9793671688) E/A ratio (test code See_Comment A [Autom ated = 8728091261) message] The system which generated this result transmitted reference range : <=0.8. The reference range was not used to interpret this result as normal/abnormal . E wave decelartion See_Comment A [Automat ed time (test code = message] T he 1905237782) system which generated this result transmitted reference range : 200 msec. The reference range was not used to interpret this result as normal/abnormal . LV,d (test code = 3.98 cm 2453242582) IVS/LVPW,2D (test code = 5801499613) LV EF,2D (test code 73.32 % = 2833507639) LV FS Cube 2D (test code = 4160013959) LV FS Teich 2D (test code = 3519751847) LV SV Teich 2D (test 45.46 ml code = 0228187228) LV Vol s Teich PSAX 23.74 ml (test code = 6666934620) LVOT stroke volume 0.35 cm3 (test code = 8193493526) Left Atrium 4.52 cm See_Comment A [Automated Dimension Anterior message] The (test code = system which 0998734309) generated this result transmitted reference range : <=3.8. The reference range was not used to interpret this result as normal/abnormal . LA Vol MOD A4C (test 83.62 ml code = 8819990033) LA area s A4C (test 28.59 cm2 code = 0697515421) LA Ao Ratio Mmode (test code = 9462297291) LVOT area (test code 3.17 cm2 = 8729464162) LVOT Vmax (test code 0.62 m/s = 3971369759) AoV Mean PG (test See_Comment [Automate d code = 4120952881) message] The system which generated this result transmitted reference range : 20 mmHg. The reference range was not used to interpret this result as normal/abnormal . AoV Peak PG (test mmHg code = 4980482554) AV LVOT peak mmHg gradient (test code = 2587100322) AoV Area, Vmax (test 2.00 cm2 See_Comment [Autom ated code = 1544326434) message] The system which generated this result transmitted reference range : >=1.5. The reference range was not used to interpret this result as normal/abnormal . LVOT VTI (CM) (test 11.00 cm code = 6793614822) AoV Vmax (test code 0.98 m/s = 7218558966) AoV Vmn (test code = 0.65 m/s 0577544667) AoV Area, VTI (test 2.42 cm2 code = 1866406450) Velocity Ratio 0.63 m/s (V1/V2) (test code = 4689) MR peak grad (test mmHg code = 8962192614) MV stenosis pressure 31.00 ms See_Comment [Autom ated 1/2 time (test code message] The = 5595254476) system which generated this result transmitted reference range : <=150. The reference range was not used to interpret this result as normal/abnormal . MV E A ratio (test code = 4351611594) MV valve area p 1/2 7.10 cm2 method (test code = 2441711978) E prime lat (test code = 9479110912) E katherine sept (test code = 0539533792) RVSP (test code = See_Comment A [Automate d 7924797724) message] The system which generated this result transmitted reference range : 40.00 mmHg. The reference range was not used to interpret this result as normal/abnormal . RA pressure (test mmHg code = 7385926614) TR pk grad (test mmHg code = 2004156412) TR Vpeak (test code 3.51 m/s = 9186935058) RVSP (TR) (test code mmHg = 7490333006) RVOT Vmax (test code 0.46 m/s = 2298039851) PV Pk Grad (test See_Comment [Automated code = 1155005839) message] The system which generated this result transmitted reference range : 36 mmHg. The reference range was not used to interpret this result as normal/abnormal . RVOT pk grad (test mmHg code = 3525087861) PV VMAX (test code = 1.15 m/s See_Comment [Autom ated 5057727617) message] The system which generated this result transmitted reference range : <=3. The reference range was not used to interpret this result as normal/abnormal . Ao root annulus 2.82 cm (test code = 1302866164) Ao Root Diameter 3.23 cm See_Comment [Automated (test code = message] The 0309656768) system which generated this result transmitted reference range : <=3.99. The reference range was not used to interpret this result as normal/abnormal . Ao Root Diameter 3.23 cm (test code = 9417258225) Ascending aorta 3.69 cm (test code = 7292324310) Pred METS R1 (test code = 1920885843) Pred Exer Dur R1 (test code = 1745131398) MV Decel slope (test 11.26 m/s2 code = 1507945135) LV vol s cube 2D 16.83 ml (test code = 4390168160) LV vol d cube 2D 63.08 ml (test code = 2819095153) LV SV Cube 2D (test 46.25 ml code = 4222813808) Calc MPHR (test code bpm = 5000524100) 85 of MPHR (test code = 0500780425) MAX Pred HR (test code = 5525606569) LVOT mean grad (test mmHg code = 9244556826) Aov area Vmn (test 1.92 cm2 code = 9110566633) MV AE ratio (test code = 5898854047) LVOT Vmn (test code = 3072828564) MR Vmax (test code = 4.22 m/s 8170419895) AoV VTI (test code = 0.15 m 8390582300) LVOT VTI (test code 0.11 m = 1404731593) GUICHO (test code = GUICHO) Left Ventricle: [...] tachycardia. Lab Interpretation Abnormal (test code = 68710-4) [facility] cpzazjs6357-38-46 07:26:00 Test Item Value Reference Interpretation Comments Range Urine culture Proteus mpkarro87-0 A Specime n isolate (test cfu/mlThe InformationSpe house of [facility] code = 38537-4) performance Source: Urin eSpecimen characteristics of Site: Christopher an catch this assay on this isolatewere validated by the Microbiology Laboratory at [facility]. This source has not been approved by the U.S. Food and Drug Administration. The results are not intended to be used as the sole means for clinical diagnosis or patient management. The Microbiology Laboratory is authorized under the clinical Laboratory Improvement Amendments of 1988 (CLIA-88) to perform high complexity testing. Lab Abnormal Interpretation (test code = 85907-5) [facility] qnwqazq6802-59-72 07:26:00 Test Item Value Reference Interpretation Comments Range Urine culture Proteus teailpv64-2 A Specime n isolate (test cfu/mlThe InformationSppittsfield general hospital code = 47776-3) performance Source: Urin eSpecimen characteristics of Site: Christopher an catch this assay on this isolatewere validated by the Microbiology Laboratory at [facility]. This source has not been approved by the U.S. Food and Drug Administration. The results are not intended to be used as the sole means for clinical diagnosis or patient management. The Microbiology Laboratory is authorized under the clinical Laboratory Improvement Amendments of 1987 (CLIA-88) to perform high complexity testing. Lab Abnormal Interpretation (test code = 72117-6) [facility] kugqjao8709-80-20 07:26:00 Test Item Value Reference Interpretation Comments Range Urine culture Proteus qxoqoon54-9 A Specime n isolate (test cfu/mlThe [facility]pp[facility] code = 60731-2) performance Source: Urin eSpecimen characteristics of Site: Christopher an catch this assay on this isolatewere validated by the Microbiology Laboratory at [facility]. This source has not been approved by the U.S. Food and Drug Administration. The results are not intended to be used as the sole means for clinical diagnosis or patient management. The Microbiology Laboratory is authorized under the clinical Laboratory Improvement Amendments of 1987 (CLIA-88) to perform high complexity testing. Lab Abnormal Interpretation (test code = 70406-5) [facility] RNA [Presence] in Respiratory specimen by DANIEL with probe lfwwgqycz3824-81-86 00:41:02 Test Item Value Reference Range Interpretation Comments SARS-CoV-2 (COVID-19) RNA Not detected [Presence] in Respiratory specimen by DANIEL with probe detection (test code = 36199-8) Whether patient is employed in a Unknown healthcare setting (test code = 57767-3) Whether the patient has symptoms Unknown related to condition of interest (test code = 35713-1) Whether the patient was Unknown hospitalized for condition of interest (test code = 41327-1) Whether the patient was admitted Unknown to intensive care unit (ICU) for condition of interest (test code = 09874-7) Whether patient resides in a Unknown congregate care setting (test code = 12322-7) status (test code = Unknown 63697-9) Date and time of symptom onset Unknown (test code = 61920-7) [facility]- XR [id number] 10:28:00 [facility] 1955 Sex: F Name: FREDDIE SAUCEDO [facility] : 1955 Age/S: 66 / F [address] Unit #: [id number] Loc: [place] [address] Phys: Mic Aiken MD Acct: [id number] Dis Date: Status: [facility] PHONE #: [phone] Exam Date: 03/08/2022 0950 FAX #: Reason: ERCP EXAMS: CPT: [id number] XR ERCP 63731 Fluoro Time: 33 SEC DAP (Gy m2): [...] Antonella Carrillo MD PAGE 1 Signed Report Name:FREDDIE SAUCEDO [place] : 1955 Age/S: 66 / F [address] Unit #: [id number] Loc: [place] [address] Phys: Mic Aiken MD Acct: [id number] Dis Date: Status: REG SDC PHONE #: [phone] Exam Date: 03/08/2022 0950 FAX #: Reason: ERCP EXAMS: CPT: [id number] XR ERCP 37423 Fluoro Time: 33 SEC DAP (Gy m2): Air Kerma (mGy): (Continued) Technologist: Naila Davis, RT(R) Trnscb Date/Time: 03/08/2022 (1028) [email or web address] Orig Print D/T: S: 03/08/2022 (1032) PAGE 2 Signed ZdpvtqBBJHKUERK1436-78-71 08:51:00 Test Item Value Reference Range Interpretation Comments POTASSIUM (test code = K) 5.1 mmol/L 3.4-5.0 H CBC W/AUTO [id number] 08:15:00 Test Item Value Reference Range Interpretation [...] NO DIFF/SCN CRITERIA = MDIFF) BASIC METABOLIC [id number] 08:08:00 Test Item Value Reference Range Interpretation [...] 9.9 MG/DL 8.5-10.1 N COVID 19 INHOUSE [id number] 14:11:00 Test Item Value Reference Range Interpretation Comments COVID 19 INHOUSE AG NEGATIVE Negative Per manu facturer, (test code = negative result s should [id number]) be treated aspr esumptive and, if inconsi [...] symptoms co nsistent with COVID-19. CBC W/AUTO [id number] 14:00:00 Test Item Value Reference Range Interpretation [...] NT WITH AUTO DIFFERENTI AL. BASIC METABOLIC [id number] 13:32:00 Test Item Value Reference Range Interpretation [...] CA) 10.1 MG/DL 8.5-10.1 N HEPATIC FUNCTION [id number] 13:32:00 Test Item Value Reference Range Interpretation [...] 222 Unit/L 45-117 H code = ALKP) [id number] 13:32:00 Test Item Value Reference Range Interpretation Comments LIPASE (test code = LIP) 109 Unit/L 114-286 L WEODWPXP6731-10-69 18:01:00 Test Item Value Reference Range Interpretation Comments SURGICAL (test code = SR) RUN DATE: 03/01/22 [facility] PAGE 1 RUN TIME: 1801 Specimen Inquiry RUN USER: INTERFACE LIANNA ENT: FREDDIE SAUCEDO #: [id number] LOC: CHIO Hurtado #: [id number] AGE/SX: 66/F ROOM: RE02/27/22REG DR: Adam King MD : 57 BED: DIS: STATUS: [facility] TLOC: SPEC #: [id number]:[id number] RECD: 02/27/22 STATUS: YULIA RAEANN #: [id number] LUZ: 02/27/[address] [facility] [address]: Adam King MD ENTERED: 02/27/22 SP TYPE: SURGICAL OTHR DR: Antonella Carrillo MD ORDERED: 87827/2, 68078, 32540, 80249, ANATOMIC SPEC, SPECIMEN TRACK COPIES TO: Antonella Carrillo MD [address] [place] [address] Adam King MD [address] [place] [address] PROCEDURES: 77959 (02/27/22-1153) 90317 (03/01/22) 84874 (03/01/22) 33938 (03/01/22) SPECIMEN TRACK (02/27/22) TISSUES: A. GASTRIC [...] CONTINUED ON NEXT PAGE RUN DATE: 03/01/22 [facility] PAGE 2 RUN TIME: 1801 Specimen Inquiry RUN USER: INTERFACE SPEC #: [id number]:[facility]:[id number] PATIENT: FREDDIE SAUCEDO #[id number] (Continued) ------- GROSS DESCRIPTION A. Antrum and body biopsy. It consists of 4 tissue fragments measuring 2-5 mm. All as A1. B. Distal esophageal biopsy. It consists of 2 tissue fragments measuring 3 mm each. Allas B1. Technical component performed at [facility] , [place] [address] Unless gross only, the diagnosis is based [...] 03/01/22 1801 END OF REPORT BASIC METABOLIC [id number] 08:13:00 Test Item Value Reference Range Interpretation [...] MG/DL 8.5-10.1 N - XR CHEST 2 [id number] 13:28:00 [facility] : 1955 Sex: F Name: FREDDIE SAUCEDO [place] : 1955 Age/S: 66 / F [address] Unit #: [id number] Loc: [place] [address] Phys: Adam King MD Acct: [id number] Dis Date: Status: PRE SDC PHONE #: [phone] Exam Date: 02/24/2022 1253 FAX #: Reason: PRE OP EXAMS: CPT: [id number] XR CHEST 2 V 05575 Fluoro Time: DAP (Gy m2): Air Kerma [...] PAGE 1 Signed Report Name: FREDDIE SAUCEDO [place] : 1955 Age/S: 66 / F [address] Unit #: [id number] Loc: [place] [address] Phys: Adam King MD Acct: [id number] Dis Date: Status: PRE SDC PHONE #: [phone] Date: 02/24/2022 1253 FAX #: Reason: PRE OP EXAMS: CPT: [id number] XR CHEST 2 V 50022 Fluoro Time: DAP (Gy m2): Air Kerma (mGy): (Continued) Technologist: Priya Lemos, RT (R)(CT) Trnscb Date/Time: 02/24/2022 (6308) [email or web address] Orig Print D/T: S: 02/24/2022 (5784) PAGE 2 Signed ReportBASIC METABOLIC [id number] 12:55:00 Test Item Value Reference Range Interpretation [...] 10.5 MG/DL 8.5-10.1 H COVID 19 INHOUSE [id number] 12:52:00 Test Item Value Reference Range Interpretation Comments COVID 19 INHOUSE AG NEGATIVE Negative Per manu facturer, (test code = negative result s should EMHFI49PFEH) be treated aspr esumptive and, if inconsi [...] and symptoms co nsistent with COVID-19. PROTHROMBIN [id number] 12:44:00 Test Item Value Reference Range Interpretation [...] (to prevent recurrent infar ct). THROMBOPLASTIN TIME [id number] 12:44:00 Test Item Value Reference Range Interpretation Comments THROMBOPLASTIN TIME PARTIAL 36.2 SECONDS 26-35 H (test code = PTT) CBC W/AUTO [id number] 12:43:00 Test Item Value Reference Range Interpretation [...] in Respiratory specimen by DANIEL with probe gbeszdbue7187-60-92 23:10:10 Test Item Value Reference Range Interpretation Comments SARS coronavirus RNA [Presence] Not detected in Isolate by DANIEL with probe detection (test code = 43491-8) Whether patient is employed in a No healthcare setting (test code = 90809-5) Whether the patient has symptoms Yes related to condition of interest (test code = 01799-3) Whether the patient was No hospitalized for condition of interest (test code = 19444-3) Whether the patient was admitted No to intensive care unit (ICU) for condition of interest (test code = 67582-1) Whether patient resides in a No congregate care setting (test code = 23463-0) status (test code = No 03694-7) Date and time of symptom onset Unknown (test code = 58167-8) [facility]gM-3 (COVID-19) RNA [Presence] in Respiratory specimen by DANIEL with probe bfmtciaot6309-22-75 23:10:10 Test Item Value Reference Range Interpretation Comments SARS-CoV-2 (COVID-19) RNA Not detected [Presence] in Respiratory specimen by DANIEL with probe detection (test code = 12127-7) Whether patient is employed in a No healthcare setting (test code = 46190-0) Whether the patient has symptoms Yes related to condition of interest (test code = 61352-3) Whether the patient was No hospitalized for condition of interest (test code = 07314-5) Whether the patient was admitted No to intensive care unit (ICU) for condition of interest (test code = 26707-2) Whether patient resides in a No congregate care setting (test code = 44703-9) status (test code = No 69380-2) Date and time of symptom onset Unknown (test code = 22968-2) [facility]ITALIRNGZZYUPRHP-GwY-3 (COVID-19) RNA [Presence] in Respiratory specimen by DANIEL with probe [id number] 22:34:30 Test Item Value Reference Range Interpretation Comments SARS-CoV-2 (COVID-19) RNA Not detected Not-Detected [Presence] in Respiratory specimen by DANIEL with probe detection (test code = 38929-4) Whether patient is employed in a healthcare setting (test code = 36833-7) Whether the patient has symptoms related to condition of interest (test code = 37707-7) Patient was hospitalized because of this condition (test code = 05901-4) Whether the patient was admitted to intensive care unit (ICU) for condition of interest (test code = 88890-5) Whether patient resides in a congregate care setting (test code = 78328-0) [facility]-CoV-2 (COVID-19) RNA [Presence] in Respiratory specimen by DANIEL with probe [id number] 22:35:42 Test Item Value Reference Range Interpretation Comments SARS-CoV-2 (COVID-19) RNA Not detected Not-Detected [Presence] in Respiratory specimen by DANIEL with probe detection (test code = 92979-7) Whether patient is employed in a healthcare setting (test code = 68488-8) Whether the patient has symptoms related to condition of interest (test code = 65831-5) Patient was hospitalized because of this condition (test code = 08950-0) Whether the patient was admitted to intensive care unit (ICU) for condition of interest (test code = 19061-6) Whether patient resides in a congregate care setting (test code = 76099-1) [facility]-CoV-2 (COVID-19) RNA [Presence] in Respiratory specimen by DANIEL with probe msqeobwvy5129-39-21 22:46:10 Test Item Value Reference Range Interpretation Comments SARS-CoV-2 (COVID-19) RNA Not detected Not-Detected [Presence] in Respiratory specimen by DANIEL with probe detection (test code = 30353-1) Whether patient is employed in a healthcare setting (test code = 72273-5) Whether the patient has symptoms related to condition of interest (test code = 54890-6) Patient was hospitalized because of this condition (test code = 65152-1) Whether the patient was admitted to intensive care unit (ICU) for condition of interest (test code = 01767-4) Whether patient resides in a congregate care setting (test code = 17398-1) [facility]-CoV-2 (COVID-19) RNA [Presence] in Respiratory specimen by DANIEL with probe dwrilqqvo5661-32-15 01:54:24 Test Item Value Reference Range Interpretation Comments SARS-CoV-2 (COVID-19) RNA Not detected Not-Detected [Presence] in Respiratory specimen by DANIEL with probe detection (test code = 74280-1) Whether patient is employed in a healthcare setting (test code = 63783-3) Whether the patient has symptoms related to condition of interest (test code = 55508-8) Patient was hospitalized because of this condition (test code = 75212-9) Whether the patient was admitted to intensive care unit (ICU) for condition of interest (test code = 48596-8) Whether patient resides in a congregate care setting (test code = 41928-1) [facility]-CoV-2 (COVID-19) RNA [Presence] in Respiratory specimen by DANIEL with probe hlhocnldu6733-08-48 21:44:06 Test Item Value Reference Range Interpretation Comments SARS-CoV-2 (COVID-19) RNA Not detected Not-Detected [Presence] in Respiratory specimen by DANIEL with probe detection (test code = 77283-1) Whether patient is employed in a healthcare setting (test code = 17373-5) Whether the patient has symptoms related to condition of interest (test code = 06814-3) Patient was hospitalized because of this condition (test code = 46270-8) Whether the patient was admitted to intensive care unit (ICU) for condition of interest (test code = 98758-3) Whether patient resides in a congregate care setting (test code = 86974-3) [facility]-CoV-2 (COVID-19) RNA [Presence] in Respiratory specimen by DANIEL with probe fpkkkzmyi8566-02-93 00:36:59 Test Item Value Reference Range Interpretation Comments SARS-CoV-2 (COVID-19) RNA Not detected Not-Detected [Presence] in Respiratory specimen by DANIEL with probe detection (test code = 58118-3) [facility]-CoV-2 (COVID-19) RNA [Presence] in Respiratory specimen by DANIEL with probe onmsordmc5965-25-04 17:35:35 Test Item Value Reference Range Interpretation Comments SARS-CoV-2 (COVID-19) RNA Not detected Not-Detected [Presence] in Respiratory specimen by DANIEL with probe detection (test code = 72677-8) [facility]-CoV-2 (COVID-19) RNA [Presence] in Respiratory specimen by DANIEL with probe xstewazrt3048-38-76 18:03:30 Test Item Value Reference Range Interpretation Comments SARS-CoV-2 (COVID-19) RNA Not detected Not-Detected [Presence] in Respiratory specimen by DANIEL with probe detection (test code = 26475-5) [facility]-CoV-2 (COVID-19) RNA [Presence] in Respiratory specimen by DANIEL with probe mlaiakdjo6799-70-85 10:06:03 Test Item Value Reference Range Interpretation Comments SARS-CoV-2 (COVID-19) RNA Not detected Not-Detected [Presence] in Respiratory specimen by DANIEL with probe detection (test code = 67009-5) [facility]-CoV-2 (COVID-19) RNA [Presence] in Respiratory specimen by DANIEL with probe ohtnchdrs5238-82-53 05:11:58 Test Item Value Reference Range Interpretation Comments SARS-CoV-2 (COVID-19) RNA Not detected Not-Detected [Presence] in Respiratory specimen by DANIEL with probe detection (test code = 47097-3) [facility]-CoV-2 (COVID-19) RNA [Presence] in Respiratory specimen by DANIEL with probe wzzcivclb8290-86-48 03:34:16 Test Item Value Reference Range Interpretation Comments SARS-CoV-2 (COVID-19) RNA Not detected Not-Detected [Presence] in Respiratory specimen by DANIEL with probe detection (test code = 57960-9) [facility]-CoV-2 (COVID-19) RNA [Presence] in Respiratory specimen by DANIEL with probe tklphgequ6702-22-51 10:06:41 Test Item Value Reference Range Interpretation Comments SARS-CoV-2 (COVID-19) RNA Not detected Not-Detected [Presence] in Respiratory specimen by DANIEL with probe detection (test code = 34945-4) [facility]2020-10-14 12:33:00 Test Item Value Reference Range Interpretation Comments Chol (test code = Chol) 129 [facility]57[facility]47 12:33:00 Test Item Value Reference Range Interpretation Comments HDL (test code = HDL) 37 [facility]XxccxwtQTFJWM1000-19-94 12:33:00 Test Item Value Reference Range Interpretation Comments Trig (test code = Trig) 76 [facility]ETKZ7997-16-76 12:33:00 Test Item Value Reference Range Interpretation Comments LDL (Calculated) (test code = LDL 76 (Calculated)) [facility]jdywvnRVAKSO4001-20-12 12:33:00 Test Item Value Reference Range Interpretation Comments CHD Risk (test code = CHD Risk) 3.5 [place] [facility]zohmpoILZRKD1150-27-99 12:33:00 Test Item Value Reference Range Interpretation Comments Non HDL Chol (test code = Non HDL Chol) 92 [facility]UmqjccuEZZPLQ2851-35-07 12:33:00 Test Item Value Reference Range Interpretation Comments Chol (test code = Chol) 129 [facility] HospitalEwsdwxgSRDISC2729-43-94 12:33:00 Test Item Value Reference Range Interpretation Comments HDL (test code = HDL) 37 [facility] HospitalNjgxuryIPVBCQ9913-34-25 12:33:00 Test Item Value Reference Range Interpretation Comments Trig (test code = Trig) 76 [facility] HospitalPhqqzovFCTHAV8336-15-93 12:33:00 Test Item Value Reference Range Interpretation Comments LDL (Calculated) (test code = LDL 76 (Calculated)) [facility] HospitalGjfvxrcBPGPHG7346-16-62 12:33:00 Test Item Value Reference Range Interpretation Comments CHD Risk (test code = CHD Risk) 3.5 [facility] HospitalLwrwhsvMNYZNQ8561-31-54 12:33:00 Test Item Value Reference Range Interpretation Comments Non HDL Chol (test code = Non HDL Chol) 92 [facility] HospitalXqzepojEUXIQM3565-90-79 12:33:00 Test Item Value Reference Range Interpretation Comments Chol (test code = Chol) 129 [facility] HospitalPbjgxmzAYGFGM9524-13-68 12:33:00 Test Item Value Reference Range Interpretation Comments HDL (test code = HDL) 37 [facility] HospitalKbbwcyyDFVXMD3070-18-60 12:33:00 Test Item Value Reference Range Interpretation Comments Trig (test code = Trig) 76 [facility] HospitalAuxithxURPQMM9052-92-73 12:33:00 Test Item Value Reference Range Interpretation Comments LDL (Calculated) (test code = LDL 76 (Calculated)) [facility] HospitalTqwcywoKJLDAC2609-01-63 12:33:00 Test Item Value Reference Range Interpretation Comments CHD Risk (test code = CHD Risk) 3.5 [facility] HospitalCtgyvzhXESPUA9176-49-35 12:33:00 Test Item Value Reference Range Interpretation Comments Non HDL Chol (test code = Non HDL Chol) 92 [facility] HospitalWpjmuggWFZMGI7845-94-68 12:33:00 Test Item Value Reference Range Interpretation Comments Chol (test code = Chol) 129 [facility] HospitalSvldbwjAVVUVW7176-46-48 12:33:00 Test Item Value Reference Range Interpretation Comments HDL (test code = HDL) 37 [facility] HospitalXjpmltoYBJGDY5123-90-02 12:33:00 Test Item Value Reference Range Interpretation Comments Trig (test code = Trig) 76 [facility] HospitalVpmuxuhVQYZXU6792-99-20 12:33:00 Test Item Value Reference Range Interpretation Comments LDL (Calculated) (test code = LDL 76 (Calculated)) [facility] HospitalIaaipvmYSFWCE3848-54-74 12:33:00 Test Item Value Reference Range Interpretation Comments CHD Risk (test code = CHD Risk) 3.5 [facility] HospitalQyjhcnqBHJLBB9296-20-13 12:33:00 Test Item Value Reference Range Interpretation Comments Non HDL Chol (test code = Non HDL Chol) 92 [facility] HospitalLokdrkjNQOJCB1788-20-60 12:33:00 Test Item Value Reference Range Interpretation Comments Chol (test code = Chol) 129 [facility] HospitalKqiunqeAOYVFG5626-82-50 12:33:00 Test Item Value Reference Range Interpretation Comments HDL (test code = HDL) 37 [facility] HospitalLrbpwiqKWKIYH5620-14-17 12:33:00 Test Item Value Reference Range Interpretation Comments Trig (test code = Trig) 76 [facility] HospitalCxqhohhAFFXMQ0179-64-69 12:33:00 Test Item Value Reference Range Interpretation Comments LDL (Calculated) (test code = LDL 76 (Calculated)) [facility] HospitalOmvfxiyDCUZVW4402-70-54 12:33:00 Test Item Value Reference Range Interpretation Comments CHD Risk (test code = CHD Risk) 3.5 [facility] HospitalZbnmkhkKRGJFS9998-32-69 12:33:00 Test Item Value Reference Range Interpretation Comments Non HDL Chol (test code = Non HDL Chol) 92 [facility] HospitalKuynybfXDVYLB1904-23-11 12:33:00 Test Item Value Reference Range Interpretation Comments Chol (test code = Chol) 129 [facility] HospitalDpehujpHGDIXO5244-22-02 12:33:00 Test Item Value Reference Range Interpretation Comments HDL (test code = HDL) 37 [facility] HospitalMrdgojjIADPAF5864-06-36 12:33:00 Test Item Value Reference Range Interpretation Comments Trig (test code = Trig) 76 [facility] HospitalPofghnsXUTXUN7104-30-37 12:33:00 Test Item Value Reference Range Interpretation Comments LDL (Calculated) (test code = LDL 76 (Calculated)) [facility] HospitalNlxiclsFOQBJK2614-09-78 12:33:00 Test Item Value Reference Range Interpretation Comments CHD Risk (test code = CHD Risk) 3.5 [place] [facility] HospitalFmzwvypLJQGIL1603-92-65 12:33:00 Test Item Value Reference Range Interpretation Comments Non HDL Chol (test code = Non HDL Chol) 92 [facility] HospitalZkxxdccWULSWS2370-99-47 12:33:00 Test Item Value Reference Range Interpretation Comments Chol (test code = Chol) 129 [facility] HospitalNgjbnvqKIYBYP9851-58-20 12:33:00 Test Item Value Reference Range Interpretation Comments HDL (test code = HDL) 37 [facility] HospitalQomdwazAYXKMS3049-40-14 12:33:00 Test Item Value Reference Range Interpretation Comments Trig (test code = Trig) 76 [facility] HospitalEbwczhgYCDBZK7105-16-10 12:33:00 Test Item Value Reference Range Interpretation Comments LDL (Calculated) (test code = LDL 76 (Calculated)) [facility] HospitalHsjerdlOZMEIZ1403-95-34 12:33:00 Test Item Value Reference Range Interpretation Comments CHD Risk (test code = CHD Risk) 3.5 [facility] HospitalPkjikgpKEJWPF0200-55-59 12:33:00 Test Item Value Reference Range Interpretation Comments Non HDL Chol (test code = Non HDL Chol) 92 [facility] HospitalMulmuinITMHUV6036-96-00 12:33:00 Test Item Value Reference Range Interpretation Comments Chol (test code = Chol) 129 [facility] HospitalTcpantyDHLWKN9589-73-10 12:33:00 Test Item Value Reference Range Interpretation Comments HDL (test code = HDL) 37 [facility] HospitalNhuxkvoZRQNYW4427-20-09 12:33:00 Test Item Value Reference Range Interpretation Comments Trig (test code = Trig) 76 [facility] HospitalLmxaegtAYJBAW1591-57-42 12:33:00 Test Item Value Reference Range Interpretation Comments LDL (Calculated) (test code = LDL 76 (Calculated)) [facility] HospitalUykiqqiULOHIA6053-26-81 12:33:00 Test Item Value Reference Range Interpretation Comments CHD Risk (test code = CHD Risk) 3.5 [facility] HospitalDswqaujRMMNSM1496-57-01 12:33:00 Test Item Value Reference Range Interpretation Comments Non HDL Chol (test code = Non HDL Chol) 92 [facility] HospitalGcdwrzqNBTDGN8834-91-11 12:33:00 Test Item Value Reference Range Interpretation Comments Chol (test code = Chol) 129 [facility] HospitalGuyycypXDARTS4114-37-16 12:33:00 Test Item Value Reference Range Interpretation Comments HDL (test code = HDL) 37 [facility] HospitalYttfytrAVGDRG8899-20-49 12:33:00 Test Item Value Reference Range Interpretation Comments Trig (test code = Trig) 76 [facility] HospitalSiytjasNXDBPV8462-90-77 12:33:00 Test Item Value Reference Range Interpretation Comments LDL (Calculated) (test code = LDL 76 (Calculated)) [place] [facility] HospitalLgdqlonDSTONZ4775-17-45 12:33:00 Test Item Value Reference Range Interpretation Comments CHD Risk (test code = CHD Risk) 3.5 [facility] HospitalNvuxfofJOEKKO5267-68-09 12:33:00 Test Item Value Reference Range Interpretation Comments Non HDL Chol (test code = Non HDL Chol) 92 [place] 387680-08-06 14:47:00 Test Item Value Reference Range Interpretation Comments Chloride Lvl (test code = Chloride Lvl) 102 98-110 [place] 387680-08-06 14:47:00 Test Item Value Reference Range Interpretation Comments CO2 (test code = CO2) 30 20-32 [place] 387680-08-06 14:47:00 Test Item Value Reference Range Interpretation Comments Calcium Lvl (test code = Calcium Lvl) 9.4 8.6-10.4 [place] 387680-08-06 14:47:00 Test Item Value Reference Range Interpretation Comments Phosphorus (test code = Phosphorus) 4.8 2.5-4.5 [place] 387680-08-06 14:47:00 Test Item Value Reference Range Interpretation Comments Albumin Lvl (test code = Albumin Lvl) 3.9 3.6-5.1 [place] 507870-08-06 14:47:00 Test Item Value Reference Range Interpretation Comments Plt Count Estimated (test code = DECREASED Plt Count Estimated) [place] 507870-08-06 14:47:00 Test Item Value Reference Range Interpretation Comments WBC X 10x3 (test code = WBC X 10x3) 7.2 3.8-10.8 [place] [address]-08-06 14:47:00 Test Item Value Reference Range Interpretation Comments RBC X 10x6 (test code = RBC X 10x6) 3.71 3.80-5.10 [place] [address]-08-06 14:47:00 Test Item Value Reference Range Interpretation Comments Hgb (test code = Hgb) 10.7 11.7-15.5 [place] [address]-08-06 14:47:00 Test Item Value Reference Range Interpretation Comments Hct (test code = Hct) 33.9 35.0-45.0 [place] 507870-08-06 14:47:00 Test Item Value Reference Range Interpretation Comments MCV (test code = MCV) 91.4 80.0-100.0 [facility]tzwrjqBOWDJYYESG1357-27-57 14:47:00 Test Item Value Reference Range Interpretation Comments MCH (test code = MCH) 28.8 pg 27.0-33.0 [facility] CenterQnrzcbpZPXHSLRJTL1424-58-75 14:47:00 Test Item Value Reference Range Interpretation Comments MCHC (test code = MCHC) 31.6 32.0-36.0 [place] 507870-08-06 14:47:00 Test Item Value Reference Range Interpretation Comments RDW (test code = RDW) 13.9 11.0-15.0 [place] 507870-08-06 14:47:00 Test Item Value Reference Range Interpretation Comments Platelet (test code = Platelet) 110 140-400 [facility] CenterYjgmjyfRRAJIPSTRG8538-33-04 14:47:00 Test Item Value Reference Range Interpretation Comments MPV (test code = MPV) 11.7 7.5-12.5 [facility] CenterQpuvgkkRQPHIJLSEQ7252-60-56 14:47:00 Test Item Value Reference Range Interpretation Comments Neutrophils # (test code = Neutrophils 5414 1673-0041 #) [facility] CenterFcbmgwwOAFMUZNWOT3859-46-79 14:47:00 Test Item Value Reference Range Interpretation Comments Lymphocytes # (test code = Lymphocytes 4059 622-8874 #) [facility] CenterFyifkfoBXLMZBXDYE4446-66-32 14:47:00 Test Item Value Reference Range Interpretation Comments Monocytes # (test code = Monocytes #) 461 200-950 [facility] CenterTxuyaouDZTMUNYGUK7761-44-09 14:47:00 Test Item Value Reference Range Interpretation Comments Eosinophils # (test code = Eosinophils 122 15-500 #) [place] 507870-08-06 14:47:00 Test Item Value Reference Range Interpretation Comments Basophils # (test code 50 See_Comment [Aut omated message] The = Basophils #) system which generated this result tra nsmitted reference range : <=200. The reference r edy was not used to int erpret this result as normal/abnormal . [facility] CenterMykjhdeMBIZGTXGFW9201-92-60 14:47:00 Test Item Value Reference Range Interpretation Comments Segs (test code = Segs) 75.2 [facility] CenterGxbxforEKYAQDUFKZ2940-83-86 14:47:00 Test Item Value Reference Range Interpretation Comments Lymphocytes (test code = Lymphocytes) 16.0 [facility] HospitalZvdzcmjVLCBIEGCBR5509-98-13 14:47:00 Test Item Value Reference Range Interpretation Comments Monocytes (test code = Monocytes) 6.4 [facility]ffXBUOYWKKYI9136-31-74 14:47:00 Test Item Value Reference Range Interpretation Comments Eosinophils (test code = Eosinophils) 1.7 [facility] HospitalAolljgqGUXSUHEBYZ9996-94-66 14:47:00 Test Item Value Reference Range Interpretation Comments Basophils (test code = Basophils) 0.7 [facility] OYQKROC8604-69-40 14:47:00 Test Item Value Reference Range Interpretation Comments Result 2 (Urine Culture) See Result Comment (test code = Result 2 (Urine Culture)) [facility] AND [id number] 14:47:00 Test Item Value Reference Range Interpretation Comments UA Color (test code = UA Color) YELLOW [facility] AND [id number] 14:47:00 Test Item Value Reference Range Interpretation Comments UA Turbidity (test code = UA CLOUDY Turbidity) [facility] AND [id number] 14:47:00 Test Item Value Reference Range Interpretation Comments UA Spec Grav (test code = UA Spec 1.017 1 1.001-1.035 Grav) [facility] AND [id number] 14:47:00 Test Item Value Reference Range Interpretation Comments UA pH (test code = UA pH) 5.5 1 5.0-8.0 [facility] AND [id number] 14:47:00 Test Item Value Reference Range Interpretation Comments UA Glucose (test code = UA Glucose) NEGATIVE [facility] AND [id number] 14:47:00 Test Item Value Reference Range Interpretation Comments UA Bili (test code = UA Bili) NEGATIVE [facility] AND [id number] 14:47:00 Test Item Value Reference Range Interpretation Comments UA Ketones (test code = UA Ketones) NEGATIVE [facility] AND [id number] 14:47:00 Test Item Value Reference Range Interpretation Comments UA Blood (test code = UA Blood) 1+ [facility] AND [id number] 14:47:00 Test Item Value Reference Range Interpretation Comments UA Protein (test code = UA Protein) 1+ [facility] AND [id number] 14:47:00 Test Item Value Reference Range Interpretation Comments UA Nitrite (test code = UA Nitrite) [facility] [id number] 14:47:00 Test Item Value Reference Range Interpretation Comments UA Leuk Est (test code = UA Leuk Est) 2+ [facility] [id number] 14:47:00 Test Item Value Reference Range Interpretation Comments UA WBC (test code = UA WBC) > OR = 60 [facility] [id number] 14:47:00 Test Item Value Reference Range Interpretation Comments UA RBC (test code = UA RBC) 0-2 [facility] [id number] 14:47:00 Test Item Value Reference Range Interpretation Comments UA Sq Epi (test code = UA Sq Epi) [facility]ONE [facility]EN [facility] [id number] 14:47:00 Test Item Value Reference Range Interpretation Comments UA Bacteria (test code = UA Bacteria) [facility] [id number] 14:47:00 Test Item Value Reference Range Interpretation Comments UA Hyal Cast (test code = UA Hyal NONE SEEN Cast) [facility] [id number] 14:47:00 Test Item Value Reference Range Interpretation Comments UA Reflex (test code CULTURE INDICATED - = UA Reflex) RESULTS TO FOLLOW [facility] [id number] 14:47:00 Test Item Value Reference Range Interpretation Comments U Creat mg/dL (test code = U Creat 114 20-275 mg/dL) [facility] [id number] 14:47:00 Test Item Value Reference Range Interpretation Comments U Alb (test code = U Alb) 16.7 [facility] [id number] 14:47:00 Test Item Value Reference Range Interpretation Comments U Alb/Crea (test code = U Alb/Crea) 146 [facility] JIQWQ3527-46-96 14:47:00 Test Item Value Reference Range Interpretation Comments Vitamin D, 25-OH, Total (test code = 37 30-100 Vitamin D, 25-OH, Total) [facility] [id number] 14:47:00 Test Item Value Reference Range Interpretation Comments U Creat mg/dL (test code = U Creat 114 20-275 mg/dL) [place] 387680-08-06 14:47:00 Test Item Value Reference Range Interpretation Comments U Prot/Creat (test code = U Prot/Creat) 430 21-161 [place] 387680-08-06 14:47:00 Test Item Value Reference Range Interpretation Comments U Prot/Creat (test code = U 0.430 1 0.021-0.161 Prot/Creat) [place] 387680-08-06 14:47:00 Test Item Value Reference Range Interpretation Comments U Protein (test code = U Protein) 49 5-24 [place] 387680-08-06 14:47:00 Test Item Value Reference Range Interpretation Comments Glucose Lvl (test code = Glucose Lvl) 103 65-99 [place] 387680-08-06 14:47:00 Test Item Value Reference Range Interpretation Comments BUN (test code = BUN) 24 7-25 [place] 387680-08-06 14:47:00 Test Item Value Reference Range Interpretation Comments Creatinine Lvl (test code = Creatinine 1.32 0.50-0.99 Lvl) [facility]2020-08-06 14:47:00 Test Item Value Reference Range Interpretation Comments eGFR NON-AFR. MALIAN (test code = 43 eGFR NON-AFR. MALIAN) [facility]2020-08-06 14:47:00 Test Item Value Reference Range Interpretation Comments eGFR (test code = eGFR 50 ) [place] 387680-08-06 14:47:00 Test Item Value Reference Range Interpretation Comments B/C Ratio (test code = B/C Ratio) 18 6-22 [facility]2020-08-06 14:47:00 Test Item Value Reference Range Interpretation Comments Sodium Lvl (test code = Sodium Lvl) 138 135-146 [place] 387680-08-06 14:47:00 Test Item Value Reference Range Interpretation Comments Potassium Lvl (test code = Potassium 4.4 3.5-5.3 Lvl) [place] 387680-08-06 14:47:00 Test Item Value Reference Range Interpretation Comments Chloride Lvl (test code = Chloride Lvl) 102 98-110 [place] 387680-08-06 14:47:00 Test Item Value Reference Range Interpretation Comments CO2 (test code = CO2) 30 20-32 [facility]2020-08-06 14:47:00 Test Item Value Reference Range Interpretation Comments Calcium Lvl (test code = Calcium Lvl) 9.4 8.6-10.4 [place] 387680-08-06 14:47:00 Test Item Value Reference Range Interpretation Comments Phosphorus (test code = Phosphorus) 4.8 2.5-4.5 [facility]2020-08-06 14:47:00 Test Item Value Reference Range Interpretation Comments Albumin Lvl (test code = Albumin Lvl) 3.9 3.6-5.1 [place] 507870-08-06 14:47:00 Test Item Value Reference Range Interpretation Comments Plt Count Estimated (test code = DECREASED Plt Count Estimated) [place] 507870-08-06 14:47:00 Test Item Value Reference Range Interpretation Comments WBC X 10x3 (test code = WBC X 10x3) 7.2 3.8-10.8 [place] [address]-08-06 14:47:00 Test Item Value Reference Range Interpretation Comments RBC X 10x6 (test code = RBC X 10x6) 3.71 3.80-5.10 [place] [address]-08-06 14:47:00 Test Item Value Reference Range Interpretation Comments Hgb (test code = Hgb) 10.7 11.7-15.5 [place] [address]-08-06 14:47:00 Test Item Value Reference Range Interpretation Comments Hct (test code = Hct) 33.9 35.0-45.0 [place] [address]-08-06 14:47:00 Test Item Value Reference Range Interpretation Comments MCV (test code = MCV) 91.4 80.0-100.0 [place] [address]-08-06 14:47:00 Test Item Value Reference Range Interpretation Comments MCH (test code = MCH) 28.8 pg 27.0-33.0 [place] [address]-08-06 14:47:00 Test Item Value Reference Range Interpretation Comments MCHC (test code = MCHC) 31.6 32.0-36.0 [place] [address]-08-06 14:47:00 Test Item Value Reference Range Interpretation Comments RDW (test code = RDW) 13.9 11.0-15.0 [facility]VtsmfmtVIREOXACRX7835-33-70 14:47:00 Test Item Value Reference Range Interpretation Comments Platelet (test code = Platelet) 110 140-400 [facility] HospitalIipxhhsVFDKYUKZJI4912-90-51 14:47:00 Test Item Value Reference Range Interpretation Comments MPV (test code = MPV) 11.7 7.5-12.5 [facility] HospitalGuqlykkURDPBBLNBY0943-48-73 14:47:00 Test Item Value Reference Range Interpretation Comments Neutrophils # (test code = Neutrophils 5414 0953-3450 #) [facility] HospitalNwnhrvmGPKDMBKPFG1117-28-25 14:47:00 Test Item Value Reference Range Interpretation Comments Lymphocytes # (test code = Lymphocytes 6995 196-3149 #) [facility] HospitalQlespdxCQUSKNEJJI4538-00-39 14:47:00 Test Item Value Reference Range Interpretation Comments Monocytes # (test code = Monocytes #) 461 200-950 [facility] HospitalAynyuqiGQXCRXBHMG2952-12-47 14:47:00 Test Item Value Reference Range Interpretation Comments Eosinophils # (test code = Eosinophils 122 15-500 #) [facility] HospitalSshcyqgBPOJHFNIBB4919-73-45 14:47:00 Test Item Value Reference Range Interpretation Comments Basophils # (test code 50 See_Comment [Aut omated message] The = Basophils #) system which generated this result tra nsmitted reference range : <=200. The reference r edy was not used to int erpret this result as normal/abnormal . [facility]MjgwnhzDJKDWAJDKW6960-99-38 14:47:00 Test Item Value Reference Range Interpretation Comments Segs (test code = Segs) 75.2 [facility] HospitalIozcwkjPPXCBYQAQA9939-31-74 14:47:00 Test Item Value Reference Range Interpretation Comments Lymphocytes (test code = Lymphocytes) 16.0 [facility] HospitalQbalrpsWIEJLEYRSO8309-66-19 14:47:00 Test Item Value Reference Range Interpretation Comments Monocytes (test code = Monocytes) 6.4 [facility] HospitalQcaxffzRDFPZEETVC3848-21-93 14:47:00 Test Item Value Reference Range Interpretation Comments Eosinophils (test code = Eosinophils) 1.7 [facility] HospitalJvkzxzzRCUZKSIXJO0380-36-92 14:47:00 Test Item Value Reference Range Interpretation Comments Basophils (test code = Basophils) 0.7 [facility] [id number] 14:47:00 Test Item Value Reference Range Interpretation Comments Result 2 (Urine Culture) See Result Comment (test code = Result 2 (Urine Culture)) [facility] AND [id number] 14:47:00 Test Item Value Reference Range Interpretation Comments UA Color (test code = UA Color) YELLOW [facility] AND [id number] 14:47:00 Test Item Value Reference Range Interpretation Comments UA Turbidity (test code = UA CLOUDY Turbidity) [facility] AND [id number] 14:47:00 Test Item Value Reference Range Interpretation Comments UA Spec Grav (test code = UA Spec 1.017 1 1.001-1.035 Grav) [facility] AND [id number] 14:47:00 Test Item Value Reference Range Interpretation Comments UA pH (test code = UA pH) 5.5 1 5.0-8.0 [facility] AND [id number] 14:47:00 Test Item Value Reference Range Interpretation Comments UA Glucose (test code = UA Glucose) NEGATIVE [facility] AND [id number] 14:47:00 Test Item Value Reference Range Interpretation Comments UA Bili (test code = UA Bili) NEGATIVE [facility] AND [id number] 14:47:00 Test Item Value Reference Range Interpretation Comments UA Ketones (test code = UA Ketones) NEGATIVE [facility] AND [id number] 14:47:00 Test Item Value Reference Range Interpretation Comments UA Blood (test code = UA Blood) 1+ [facility] AND [id number] 14:47:00 Test Item Value Reference Range Interpretation Comments UA Protein (test code = UA Protein) 1+ [facility] AND [id number] 14:47:00 Test Item Value Reference Range Interpretation Comments UA Nitrite (test code = UA Nitrite) POSITIVE [facility] AND [id number] 14:47:00 Test Item Value Reference Range Interpretation Comments UA Leuk Est (test code = UA Leuk Est) 2+ [facility] AND [id number] 14:47:00 Test Item Value Reference Range Interpretation Comments UA WBC (test code = UA WBC) > OR = 60 [facility] AND [id number] 14:47:00 Test Item Value Reference Range Interpretation Comments UA RBC (test code = UA RBC) 0-2 [facility] AND [id number] 14:47:00 Test Item Value Reference Range Interpretation Comments UA Sq Epi (test code = UA Sq Epi) NONE SEEN [facility] AND [id number] 14:47:00 Test Item Value Reference Range Interpretation Comments UA Bacteria (test code = UA Bacteria) MANY [facility] AND [id number] 14:47:00 Test Item Value Reference Range Interpretation Comments UA Hyal Cast (test code = UA Hyal NONE SEEN Cast) [facility] AND [id number] 14:47:00 Test Item Value Reference Range Interpretation Comments UA Reflex (test code CULTURE INDICATED - = UA Reflex) RESULTS TO FOLLOW [facility]2020-08-06 14:47:00 Test Item Value Reference Range Interpretation Comments U Creat mg/dL (test code = U Creat 114 20-275 mg/dL) [place] [place] 658330-[place]-06 14:47:00 Test Item Value Reference Range Interpretation Comments U Alb (test code = U Alb) 16.7 [place] 658330-08-06 14:47:00 Test Item Value Reference Range Interpretation Comments U Alb/Crea (test code = U Alb/Crea) 146 [facility]2020-08-06 14:47:00 Test Item Value Reference Range Interpretation Comments Vitamin D, 25-OH, Total (test code = 37 30-100 Vitamin D, 25-OH, Total) [place] 387680-08-06 14:47:00 Test Item Value Reference Range Interpretation Comments U Creat mg/dL (test code = U Creat 114 20-275 mg/dL) [place] 387680-08-06 14:47:00 Test Item Value Reference Range Interpretation Comments U Prot/Creat (test code = U Prot/Creat) 430 21-161 [place] 387680-08-06 14:47:00 Test Item Value Reference Range Interpretation Comments U Prot/Creat (test code = U 0.430 1 0.021-0.161 Prot/Creat) [place] 387680-08-06 14:47:00 Test Item Value Reference Range Interpretation Comments U Protein (test code = U Protein) 49 5-24 [place] 387680-08-06 14:47:00 Test Item Value Reference Range Interpretation Comments Glucose Lvl (test code = Glucose Lvl) 103 65-99 [place] 387680-08-06 14:47:00 Test Item Value Reference Range Interpretation Comments BUN (test code = BUN) 24 7-25 [place] 387680-08-06 14:47:00 Test Item Value Reference Range Interpretation Comments Creatinine Lvl (test code = Creatinine 1.32 0.50-0.99 Lvl) [facility]2020-08-06 14:47:00 Test Item Value Reference Range Interpretation Comments eGFR NON-AFR. MALIAN (test code = 43 eGFR NON-AFR. MALIAN) [facility]2020-08-06 14:47:00 Test Item Value Reference Range Interpretation Comments eGFR (test code = eGFR 50 ) [place] 387680-08-06 14:47:00 Test Item Value Reference Range Interpretation Comments B/C Ratio (test code = B/C Ratio) 18 6-22 [place] 387680-08-06 14:47:00 Test Item Value Reference Range Interpretation Comments Sodium Lvl (test code = Sodium Lvl) 138 135-146 [facility]2020-08-06 14:47:00 Test Item Value Reference Range Interpretation Comments Potassium Lvl (test code = Potassium 4.4 3.5-5.3 Lvl) [facility]2020-08-06 14:47:00 Test Item Value Reference Range Interpretation Comments Chloride Lvl (test code = Chloride Lvl) 102 98-110 [place] 387680-08-06 14:47:00 Test Item Value Reference Range Interpretation Comments CO2 (test code = CO2) 30 20-32 [place] 387680-08-06 14:47:00 Test Item Value Reference Range Interpretation Comments Calcium Lvl (test code = Calcium Lvl) 9.4 8.6-10.4 [place] 387680-08-06 14:47:00 Test Item Value Reference Range Interpretation Comments Phosphorus (test code = Phosphorus) 4.8 2.5-4.5 [place] 387680-08-06 14:47:00 Test Item Value Reference Range Interpretation Comments Albumin Lvl (test code = Albumin Lvl) 3.9 3.6-5.1 [facility]vzwyfkSBQAMUZSHM4869-59-55 14:47:00 Test Item Value Reference Range Interpretation Comments Plt Count Estimated (test code = DECREASED Plt Count Estimated) [facility] CenterDsvnlnbKVEKAPXFRY1513-06-61 14:47:00 Test Item Value Reference Range Interpretation Comments WBC X 10x3 (test code = WBC X 10x3) 7.2 3.8-10.8 [place] 507870-08-06 14:47:00 Test Item Value Reference Range Interpretation Comments RBC X 10x6 (test code = RBC X 10x6) 3.71 3.80-5.10 [place] 507870-08-06 14:47:00 Test Item Value Reference Range Interpretation Comments Hgb (test code = Hgb) 10.7 11.7-15.5 [facility] CenterIswjcklLATRVFJKJL1923-99-67 14:47:00 Test Item Value Reference Range Interpretation Comments Hct (test code = Hct) 33.9 35.0-45.0 [facility] CenterGxtwvzfAJZAIIWUYN4073-96-08 14:47:00 Test Item Value Reference Range Interpretation Comments MCV (test code = MCV) 91.4 80.0-100.0 [facility] CenterJxmlyibRIRTULWKVA9911-36-89 14:47:00 Test Item Value Reference Range Interpretation Comments MCH (test code = MCH) 28.8 pg 27.0-33.0 [facility] CenterNnfssetYAVXEOJOTW1529-84-94 14:47:00 Test Item Value Reference Range Interpretation Comments MCHC (test code = MCHC) 31.6 32.0-36.0 [facility] CenterPnusazdKTSHLODNUJ3653-29-52 14:47:00 Test Item Value Reference Range Interpretation Comments RDW (test code = RDW) 13.9 11.0-15.0 [place] 507870-08-06 14:47:00 Test Item Value Reference Range Interpretation Comments Platelet (test code = Platelet) 110 140-400 [place] 507870-08-06 14:47:00 Test Item Value Reference Range Interpretation Comments MPV (test code = MPV) 11.7 7.5-12.5 [facility] CenterKwujqcfINDAJHAANC1609-98-94 14:47:00 Test Item Value Reference Range Interpretation Comments Neutrophils # (test code = Neutrophils 5426 5406-9447 #) [facility]uHJVBZBBSFU8402-62-31 14:47:00 Test Item Value Reference Range Interpretation Comments Lymphocytes # (test code = Lymphocytes 8686 521-0746 #) [facility] HospitalYdgpiozNKYVPXDWJT0911-88-12 14:47:00 Test Item Value Reference Range Interpretation Comments Monocytes # (test code = Monocytes #) 461 200-950 [facility]EszksabWSWZSPPOEA6203-23-11 14:47:00 Test Item Value Reference Range Interpretation Comments Eosinophils # (test code = Eosinophils 122 15-500 #) [facility] HospitalEgngojkLUKGQYTKXS6449-71-99 14:47:00 Test Item Value Reference Range Interpretation Comments Basophils # (test code 50 See_Comment [Aut omated message] The = Basophils #) system which generated this result tra nsmitted reference range : <=200. The reference r edy was not used to int erpret this result as normal/abnormal . [facility] HospitalFxifvttGHDQSROGIH8450-72-58 14:47:00 Test Item Value Reference Range Interpretation Comments Segs (test code = Segs) 75.2 [facility] HospitalWbwcoioRNLQSBKITJ3738-35-56 14:47:00 Test Item Value Reference Range Interpretation Comments Lymphocytes (test code = Lymphocytes) 16.0 [facility] HospitalOrrzoajRZHUHNIGOW7322-44-04 14:47:00 Test Item Value Reference Range Interpretation Comments Monocytes (test code = Monocytes) 6.4 [facility] HospitalEiysidvPMFBCEGGSY1273-08-59 14:47:00 Test Item Value Reference Range Interpretation Comments Eosinophils (test code = Eosinophils) 1.7 [facility] HospitalUxclszsTHMKERZYDK4298-60-61 14:47:00 Test Item Value Reference Range Interpretation Comments Basophils (test code = Basophils) 0.7 [facility] QEKWJZT1172-10-04 14:47:00 Test Item Value Reference Range Interpretation Comments Result 2 (Urine Culture) See Result Comment (test code = Result 2 (Urine Culture)) [facility] [id number] 14:47:00 Test Item Value Reference Range Interpretation Comments UA Color (test code = UA Color) YELLOW [facility] AND [id number] 14:47:00 Test Item Value Reference Range Interpretation Comments UA Turbidity (test code = UA CLOUDY Turbidity) [facility] AND [id number] 14:47:00 Test Item Value Reference Range Interpretation Comments UA Spec Grav (test code = UA Spec 1.017 1 1.001-1.035 Grav) [facility] [id number] 14:47:00 Test Item Value Reference Range Interpretation Comments UA pH (test code = UA pH) 5.5 1 5.0-8.0 [facility] [id number] 14:47:00 Test Item Value Reference Range Interpretation Comments UA Glucose (test code = UA Glucose) NEGATIVE [facility] [id number] 14:47:00 Test Item Value Reference Range Interpretation Comments UA Bili (test code = UA Bili) NEGATIVE [facility] [id number] 14:47:00 Test Item Value Reference Range Interpretation Comments UA Ketones (test code = UA Ketones) NEGATIVE [facility] [id number] 14:47:00 Test Item Value Reference Range Interpretation Comments UA Blood (test code = UA Blood) 1+ [facility] [id number] 14:47:00 Test Item Value Reference Range Interpretation Comments UA Protein (test code = UA Protein) 1+ [facility] [id number] 14:47:00 Test Item Value Reference Range Interpretation Comments UA Nitrite (test code = UA Nitrite) POSITIVE [facility] [id number] 14:47:00 Test Item Value Reference Range Interpretation Comments UA Leuk Est (test code = UA Leuk Est) 2+ [facility] [id number] 14:47:00 Test Item Value Reference Range Interpretation Comments UA WBC (test code = UA WBC) > OR = 60 [facility] [id number] 14:47:00 Test Item Value Reference Range Interpretation Comments UA RBC (test code = UA RBC) 0-2 [facility] [id number] 14:47:00 Test Item Value Reference Range Interpretation Comments UA Sq Epi (test code = UA Sq Epi) NONE SEEN [facility] [id number] 14:47:00 Test Item Value Reference Range Interpretation Comments UA Bacteria (test code = UA Bacteria) MANY [facility] [id number] 14:47:00 Test Item Value Reference Range Interpretation Comments UA Hyal Cast (test code = UA Hyal NONE SEEN Cast) [facility] [id number] 14:47:00 Test Item Value Reference Range Interpretation Comments UA Reflex (test code CULTURE INDICATED - = UA Reflex) RESULTS TO FOLLOW [place] 658330-08-06 14:47:00 Test Item Value Reference Range Interpretation Comments U Creat mg/dL (test code = U Creat 114 20-275 mg/dL) [place] 658330-08-06 14:47:00 Test Item Value Reference Range Interpretation Comments U Alb (test code = U Alb) 16.7 [place] 59[address]-08-06 14:47:00 Test Item Value Reference Range Interpretation Comments U Alb/Crea (test code = U Alb/Crea) 146 [place] 387680-08-06 14:47:00 Test Item Value Reference Range Interpretation Comments Vitamin D, 25-OH, Total (test code = 37 30-100 Vitamin D, 25-OH, Total) [place] 387680-08-06 14:47:00 Test Item Value Reference Range Interpretation Comments U Creat mg/dL (test code = U Creat 114 20-275 mg/dL) [place] 32[address]-08-06 14:47:00 Test Item Value Reference Range Interpretation Comments U Prot/Creat (test code = U Prot/Creat) 430 21-161 [facility]2020-08-06 14:47:00 Test Item Value Reference Range Interpretation Comments U Prot/Creat (test code = U 0.430 1 0.021-0.161 Prot/Creat) [place] 387680-08-06 14:47:00 Test Item Value Reference Range Interpretation Comments U Protein (test code = U Protein) 49 5-24 [place] 32[address]-08-06 14:47:00 Test Item Value Reference Range Interpretation Comments Glucose Lvl (test code = Glucose Lvl) 103 65-99 [place] 387680-08-06 14:47:00 Test Item Value Reference Range Interpretation Comments BUN (test code = BUN) 24 7-25 [place] 387680-08-06 14:47:00 Test Item Value Reference Range Interpretation Comments Creatinine Lvl (test code = Creatinine 1.32 0.50-0.99 Lvl) [place] 387680-08-06 14:47:00 Test Item Value Reference Range Interpretation Comments eGFR NON-AFR. MALIAN (test code = 43 eGFR NON-AFR. MALIAN) [place] 387680-08-06 14:47:00 Test Item Value Reference Range Interpretation Comments eGFR (test code = eGFR 50 ) [place] 387680-08-06 14:47:00 Test Item Value Reference Range Interpretation Comments B/C Ratio (test code = B/C Ratio) 18 6-22 [place] 387680-08-06 14:47:00 Test Item Value Reference Range Interpretation Comments Sodium Lvl (test code = Sodium Lvl) 138 135-146 [place] [address]-08-06 14:47:00 Test Item Value Reference Range Interpretation Comments Potassium Lvl (test code = Potassium 4.4 3.5-5.3 Lvl) [place] 387680-08-06 14:47:00 Test Item Value Reference Range Interpretation Comments Chloride Lvl (test code = Chloride Lvl) 102 98-110 [place] 387680-08-06 14:47:00 Test Item Value Reference Range Interpretation Comments CO2 (test code = CO2) 30 20-32 [place] 387680-08-06 14:47:00 Test Item Value Reference Range Interpretation Comments Calcium Lvl (test code = Calcium Lvl) 9.4 8.6-10.4 [place] 387680-08-06 14:47:00 Test Item Value Reference Range Interpretation Comments Phosphorus (test code = Phosphorus) 4.8 2.5-4.5 [place] 387680-08-06 14:47:00 Test Item Value Reference Range Interpretation Comments Albumin Lvl (test code = Albumin Lvl) 3.9 3.6-5.1 [place] [address]-08-06 14:47:00 Test Item Value Reference Range Interpretation Comments Plt Count Estimated (test code = DECREASED Plt Count Estimated) [place] 507870-08-06 14:47:00 Test Item Value Reference Range Interpretation Comments WBC X 10x3 (test code = WBC X 10x3) 7.2 3.8-10.8 [place] [address]-08-06 14:47:00 Test Item Value Reference Range Interpretation Comments RBC X 10x6 (test code = RBC X 10x6) 3.71 3.80-5.10 [facility]EdxnxirJQWYCGJFOL1924-55-23 14:47:00 Test Item Value Reference Range Interpretation Comments Hgb (test code = Hgb) 10.7 11.7-15.5 [facility] CenterZtqvhdwPUUQCFLTDD5972-31-01 14:47:00 Test Item Value Reference Range Interpretation Comments Hct (test code = Hct) 33.9 35.0-45.0 [facility] CenterNrikkzbYMUUONTJTM1970-52-29 14:47:00 Test Item Value Reference Range Interpretation Comments MCV (test code = MCV) 91.4 80.0-100.0 [facility] CenterDceqnqqTXQJPCVOSJ7461-32-68 14:47:00 Test Item Value Reference Range Interpretation Comments MCH (test code = MCH) 28.8 pg 27.0-33.0 [facility] CenterRdartmpGMAEQRSPJI6906-77-92 14:47:00 Test Item Value Reference Range Interpretation Comments MCHC (test code = MCHC) 31.6 32.0-36.0 [facility] CenterKdkdnwlGXZFBMKMWB8710-56-03 14:47:00 Test Item Value Reference Range Interpretation Comments RDW (test code = RDW) 13.9 11.0-15.0 [facility] CenterDmsxpqfEBMLHSLLJF5503-42-94 14:47:00 Test Item Value Reference Range Interpretation Comments Platelet (test code = Platelet) 110 140-400 [facility] CenterCvqtyaeUKVQOCROEX3249-16-95 14:47:00 Test Item Value Reference Range Interpretation Comments MPV (test code = MPV) 11.7 7.5-12.5 [facility] CenterBasbktwETLEABYGET5463-57-66 14:47:00 Test Item Value Reference Range Interpretation Comments Neutrophils # (test code = Neutrophils 5414 1091-2848 #) [facility] CenterGrrjmydDUROBGGTZK8982-87-68 14:47:00 Test Item Value Reference Range Interpretation Comments Lymphocytes # (test code = Lymphocytes 3948 567-2504 #) [facility] CenterDevjvtdZRZNCDCJDZ8413-57-96 14:47:00 Test Item Value Reference Range Interpretation Comments Monocytes # (test code = Monocytes #) 461 200-950 [facility] CenterXdaygojEFOGSZHZUC6494-62-05 14:47:00 Test Item Value Reference Range Interpretation Comments Eosinophils # (test code = Eosinophils 122 15-500 #) [facility] CenterFwktoipFRPJUAPEHM3825-90-82 14:47:00 Test Item Value Reference Range Interpretation Comments Basophils # (test code 50 See_Comment [Aut omated message] The = Basophils #) system which generated this result tra nsmitted reference range : <=200. The reference r edy was not used to int erpret this result as normal/abnormal . [facility] CenterGpxhagsZCAZILDACS1476-55-87 14:47:00 Test Item Value Reference Range Interpretation Comments Segs (test code = Segs) 75.2 [facility]KcoirlkZEQKDBYZDZ7173-96-73 14:47:00 Test Item Value Reference Range Interpretation Comments Lymphocytes (test code = Lymphocytes) 16.0 [facility] CenterTmmrqsqNOBUQANAEA6885-13-16 14:47:00 Test Item Value Reference Range Interpretation Comments Monocytes (test code = Monocytes) 6.4 [facility] CenterSobevjjZCQOITJZEG9554-09-91 14:47:00 Test Item Value Reference Range Interpretation Comments Eosinophils (test code = Eosinophils) 1.7 [facility] CenterRxxcwknTUUCZUEOLB1739-94-53 14:47:00 Test Item Value Reference Range Interpretation Comments Basophils (test code = Basophils) 0.7 [facility] [id number] 14:47:00 Test Item Value Reference Range Interpretation Comments Result 2 (Urine Culture) See Result Comment (test code = Result 2 (Urine Culture)) [facility] AND [id number] 14:47:00 Test Item Value Reference Range Interpretation Comments UA Color (test code = UA Color) YELLOW [facility] AND [id number] 14:47:00 Test Item Value Reference Range Interpretation Comments UA Turbidity (test code = UA CLOUDY Turbidity) [facility] AND [id number] 14:47:00 Test Item Value Reference Range Interpretation Comments UA Spec Grav (test code = UA Spec 1.017 1 1.001-1.035 Grav) [facility] AND [id number] 14:47:00 Test Item Value Reference Range Interpretation Comments UA pH (test code = UA pH) 5.5 1 5.0-8.0 [facility] [id number] 14:47:00 Test Item Value Reference Range Interpretation Comments UA Glucose (test code = UA Glucose) NEGATIVE [facility] AND [id number] 14:47:00 Test Item Value Reference Range Interpretation Comments UA Bili (test code = UA Bili) NEGATIVE [facility] AND [id number] 14:47:00 Test Item Value Reference Range Interpretation Comments UA Ketones (test code = UA Ketones) NEGATIVE [facility] [id number] 14:47:00 Test Item Value Reference Range Interpretation Comments UA Blood (test code = UA Blood) 1+ [facility] [id number] 14:47:00 Test Item Value Reference Range Interpretation Comments UA Protein (test code = UA Protein) 1+ [facility] [id number] 14:47:00 Test Item Value Reference Range Interpretation Comments UA Nitrite (test code = UA Nitrite) POSITIVE [facility] [id number] 14:47:00 Test Item Value Reference Range Interpretation Comments UA Leuk Est (test code = UA Leuk Est) 2+ [facility] [id number] 14:47:00 Test Item Value Reference Range Interpretation Comments UA WBC (test code = UA WBC) > OR = 60 [facility] [id number] 14:47:00 Test Item Value Reference Range Interpretation Comments UA RBC (test code = UA RBC) 0-2 [facility] [id number] 14:47:00 Test Item Value Reference Range Interpretation Comments UA Sq Epi (test code = UA Sq Epi) NONE SEEN [facility] [id number] 14:47:00 Test Item Value Reference Range Interpretation Comments UA Bacteria (test code = UA Bacteria) [facility] [id number] 14:47:00 Test Item Value Reference Range Interpretation Comments UA Hyal Cast (test code = UA Hyal NONE SEEN Cast) [facility] [id number] 14:47:00 Test Item Value Reference Range Interpretation Comments UA Reflex (test code CULTURE INDICATED - = UA Reflex) RESULTS TO FOLLOW [facility] [id number] 14:47:00 Test Item Value Reference Range Interpretation Comments U Creat mg/dL (test code = U Creat 114 20-275 mg/dL) [facility] [id number] 14:47:00 Test Item Value Reference Range Interpretation Comments U Alb (test code = U Alb) 16.7 [facility] [id number] 14:47:00 Test Item Value Reference Range Interpretation Comments U Alb/Crea (test code = U Alb/Crea) 146 [facility]2020-08-06 14:47:00 Test Item Value Reference Range Interpretation Comments Vitamin D, 25-OH, Total (test code = 37 30-100 Vitamin D, 25-OH, Total) [place] 387680-08-06 14:47:00 Test Item Value Reference Range Interpretation Comments U Creat mg/dL (test code = U Creat 114 20-275 mg/dL) [facility]2020-08-06 14:47:00 Test Item Value Reference Range Interpretation Comments U Prot/Creat (test code = U Prot/Creat) 430 21-161 [place] 387680-08-06 14:47:00 Test Item Value Reference Range Interpretation Comments U Prot/Creat (test code = U 0.430 1 0.021-0.161 Prot/Creat) [facility]2020-08-06 14:47:00 Test Item Value Reference Range Interpretation Comments U Protein (test code = U Protein) 49 5-24 [facility]2020-08-06 14:47:00 Test Item Value Reference Range Interpretation Comments Glucose Lvl (test code = Glucose Lvl) 103 65-99 [facility]2020-08-06 14:47:00 Test Item Value Reference Range Interpretation Comments BUN (test code = BUN) 24 7-25 [place] 387680-08-06 14:47:00 Test Item Value Reference Range Interpretation Comments Creatinine Lvl (test code = Creatinine 1.32 0.50-0.99 Lvl) [facility]2020-08-06 14:47:00 Test Item Value Reference Range Interpretation Comments eGFR NON-AFR. MALIAN (test code = 43 eGFR NON-AFR. MALIAN) [facility]2020-08-06 14:47:00 Test Item Value Reference Range Interpretation Comments eGFR (test code = eGFR 50 ) [facility]2020-08-06 14:47:00 Test Item Value Reference Range Interpretation Comments B/C Ratio (test code = B/C Ratio) 18 6-22 [place] 387680-08-06 14:47:00 Test Item Value Reference Range Interpretation Comments Sodium Lvl (test code = Sodium Lvl) 138 135-146 [place] 387680-08-06 14:47:00 Test Item Value Reference Range Interpretation Comments Potassium Lvl (test code = Potassium 4.4 3.5-5.3 Lvl) [place] 387680-08-06 14:47:00 Test Item Value Reference Range Interpretation Comments Chloride Lvl (test code = Chloride Lvl) 102 98-110 [place] 387680-08-06 14:47:00 Test Item Value Reference Range Interpretation Comments CO2 (test code = CO2) 30 20-32 [place] 387680-08-06 14:47:00 Test Item Value Reference Range Interpretation Comments Calcium Lvl (test code = Calcium Lvl) 9.4 8.6-10.4 [place] 387680-08-06 14:47:00 Test Item Value Reference Range Interpretation Comments Phosphorus (test code = Phosphorus) 4.8 2.5-4.5 [place] 387680-08-06 14:47:00 Test Item Value Reference Range Interpretation Comments Albumin Lvl (test code = Albumin Lvl) 3.9 3.6-5.1 [place] 507870-08-06 14:47:00 Test Item Value Reference Range Interpretation Comments Plt Count Estimated (test code = DECREASED Plt Count Estimated) [place] 507870-08-06 14:47:00 Test Item Value Reference Range Interpretation Comments WBC X 10x3 (test code = WBC X 10x3) 7.2 3.8-10.8 [place] [address]-08-06 14:47:00 Test Item Value Reference Range Interpretation Comments RBC X 10x6 (test code = RBC X 10x6) 3.71 3.80-5.10 [place] [address]-08-06 14:47:00 Test Item Value Reference Range Interpretation Comments Hgb (test code = Hgb) 10.7 11.7-15.5 [place] [address]-08-06 14:47:00 Test Item Value Reference Range Interpretation Comments Hct (test code = Hct) 33.9 35.0-45.0 [place] [address]-08-06 14:47:00 Test Item Value Reference Range Interpretation Comments MCV (test code = MCV) 91.4 80.0-100.0 [facility] CenterDeejqyjFDACSUBEGB2944-87-37 14:47:00 Test Item Value Reference Range Interpretation Comments MCH (test code = MCH) 28.8 pg 27.0-33.0 [facility] CenterMnhxqcqJSHKNISNCE1258-34-58 14:47:00 Test Item Value Reference Range Interpretation Comments MCHC (test code = MCHC) 31.6 32.0-36.0 [facility] CenterKzpvpzuXBGCSUQRYO6283-64-23 14:47:00 Test Item Value Reference Range Interpretation Comments RDW (test code = RDW) 13.9 11.0-15.0 [facility] CenterDzrajayKLHDTACNBX5659-81-83 14:47:00 Test Item Value Reference Range Interpretation Comments Platelet (test code = Platelet) 110 140-400 [facility] CenterPayiddtGOSPGOPMDK1531-33-87 14:47:00 Test Item Value Reference Range Interpretation Comments MPV (test code = MPV) 11.7 7.5-12.5 [facility] CenterRoctszzMODZKIPFZH0810-81-34 14:47:00 Test Item Value Reference Range Interpretation Comments Neutrophils # (test code = Neutrophils 5414 8763-3056 #) [facility] CenterFqreoirAXSBVQZWDR4433-38-97 14:47:00 Test Item Value Reference Range Interpretation Comments Lymphocytes # (test code = Lymphocytes [phone] #) [facility] CenterQlafrcaVGIRUZYSTU8144-11-59 14:47:00 Test Item Value Reference Range Interpretation Comments Monocytes # (test code = Monocytes #) 461 200-950 [facility] CenterSpwjpnyWMWATVVMHT7399-23-23 14:47:00 Test Item Value Reference Range Interpretation Comments Eosinophils # (test code = Eosinophils 122 15-500 #) [facility] CenterRfshzedMOYHYTUCQD0315-80-73 14:47:00 Test Item Value Reference Range Interpretation Comments Basophils # (test code 50 See_Comment [Aut omated message] The = Basophils #) system which generated this result tra nsmitted reference range : <=200. The reference r edy was not used to int erpret this result as normal/abnormal . [facility]V[id number] 14:47:00 Test Item Value Reference Range Interpretation Comments Segs (test code = Segs) 75.2 [facility] Cent[id number] 14:47:00 Test Item Value Reference Range Interpretation Comments Lymphocytes (test code = Lymphocytes) 16.0 [place] [address]-08-06 14:47:00 Test Item Value Reference Range Interpretation Comments Monocytes (test code = Monocytes) 6.4 [id number] 14:47:00 Test Item Value Reference Range Interpretation Comments Eosinophils (test code = Eosinophils) 1.7 [facility] HospitalJriwsfdMMKZPTICCN7698-18-68 14:47:00 Test Item Value Reference Range Interpretation Comments Basophils (test code = Basophils) 0.7 [facility] [id number] 14:47:00 Test Item Value Reference Range Interpretation Comments Result 2 (Urine Culture) See Result Comment (test code = Result 2 (Urine Culture)) [facility] AND [id number] 14:47:00 Test Item Value Reference Range Interpretation Comments UA Color (test code = UA Color) YELLOW [facility] AND [id number] 14:47:00 Test Item Value Reference Range Interpretation Comments UA Turbidity (test code = UA CLOUDY Turbidity) [facility] AND [id number] 14:47:00 Test Item Value Reference Range Interpretation Comments UA Spec Grav (test code = UA Spec 1.017 1 1.001-1.035 Grav) [facility] AND [id number] 14:47:00 Test Item Value Reference Range Interpretation Comments UA pH (test code = UA pH) 5.5 1 5.0-8.0 [facility] AND [id number] 14:47:00 Test Item Value Reference Range Interpretation Comments UA Glucose (test code = UA Glucose) NEGATIVE [facility] AND [id number] 14:47:00 Test Item Value Reference Range Interpretation Comments UA Bili (test code = UA Bili) NEGATIVE [facility] AND [id number] 14:47:00 Test Item Value Reference Range Interpretation Comments UA Ketones (test code = UA Ketones) NEGATIVE [facility] AND [id number] 14:47:00 Test Item Value Reference Range Interpretation Comments UA Blood (test code = UA Blood) 1+ [facility] AND [id number] 14:47:00 Test Item Value Reference Range Interpretation Comments UA Protein (test code = UA Protein) 1+ [facility] AND [id number] 14:47:00 Test Item Value Reference Range Interpretation Comments UA Nitrite (test code = UA Nitrite) POSITIVE [facility] AND [id number] 14:47:00 Test Item Value Reference Range Interpretation Comments UA Leuk Est (test code = UA Leuk Est) 2+ [facility] AND [id number] 14:47:00 Test Item Value Reference Range Interpretation Comments UA WBC (test code = UA WBC) > OR = 60 [facility] AND [id number] 14:47:00 Test Item Value Reference Range Interpretation Comments UA RBC (test code = UA RBC) 0-2 [facility] AND [id number] 14:47:00 Test Item Value Reference Range Interpretation Comments UA Sq Epi (test code = UA Sq Epi) NONE SEEN [facility] AND [id number] 14:47:00 Test Item Value Reference Range Interpretation Comments UA Bacteria (test code = UA Bacteria) MANY [facility] AND [id number] 14:47:00 Test Item Value Reference Range Interpretation Comments UA Hyal Cast (test code = UA Hyal NONE SEEN Cast) [facility] AND [id number] 14:47:00 Test Item Value Reference Range Interpretation Comments UA Reflex (test code CULTURE INDICATED - = UA Reflex) RESULTS TO FOLLOW [facility]2020-08-06 14:47:00 Test Item Value Reference Range Interpretation Comments U Creat mg/dL (test code = U Creat 114 20-275 mg/dL) [facility]2020-08-06 14:47:00 Test Item Value Reference Range Interpretation Comments U Alb (test code = U Alb) 16.7 [facility]2020-08-06 14:47:00 Test Item Value Reference Range Interpretation Comments U Alb/Crea (test code = U Alb/Crea) 146 [facility] [id number] 14:47:00 Test Item Value Reference Range Interpretation Comments Vitamin D, 25-OH, Total (test code = 37 30-100 Vitamin D, 25-OH, Total) [facility] [id number] 14:47:00 Test Item Value Reference Range Interpretation Comments U Creat mg/dL (test code = U Creat 114 20-275 mg/dL) [facility] [id number] 14:47:00 Test Item Value Reference Range Interpretation Comments U Prot/Creat (test code = U Prot/Creat) 430 21-161 [facility]2020-08-06 14:47:00 Test Item Value Reference Range Interpretation Comments U Prot/Creat (test code = U 0.430 1 0.021-0.161 Prot/Creat) [place] 387680-08-06 14:47:00 Test Item Value Reference Range Interpretation Comments U Protein (test code = U Protein) 49 5-24 [facility]2020-08-06 14:47:00 Test Item Value Reference Range Interpretation Comments Glucose Lvl (test code = Glucose Lvl) 103 65-99 [place] 387680-08-06 14:47:00 Test Item Value Reference Range Interpretation Comments BUN (test code = BUN) 24 7-25 [facility]2020-08-06 14:47:00 Test Item Value Reference Range Interpretation Comments Creatinine Lvl (test code = Creatinine 1.32 0.50-0.99 Lvl) [facility]2020-08-06 14:47:00 Test Item Value Reference Range Interpretation Comments eGFR NON-AFR. MALIAN (test code = 43 eGFR NON-AFR. MALIAN) [facility]2020-08-06 14:47:00 Test Item Value Reference Range Interpretation Comments eGFR (test code = eGFR 50 ) [facility]2020-08-06 14:47:00 Test Item Value Reference Range Interpretation Comments B/C Ratio (test code = B/C Ratio) 18 6-22 [facility]2020-08-06 14:47:00 Test Item Value Reference Range Interpretation Comments Sodium Lvl (test code = Sodium Lvl) 138 135-146 [place] 387680-08-06 14:47:00 Test Item Value Reference Range Interpretation Comments Potassium Lvl (test code = Potassium 4.4 3.5-5.3 Lvl) [facility]2020-08-06 14:47:00 Test Item Value Reference Range Interpretation Comments Chloride Lvl (test code = Chloride Lvl) 102 98-110 [place] 387680-08-06 14:47:00 Test Item Value Reference Range Interpretation Comments CO2 (test code = CO2) 30 20-32 [place] 387680-08-06 14:47:00 Test Item Value Reference Range Interpretation Comments Calcium Lvl (test code = Calcium Lvl) 9.4 8.6-10.4 [facility]2020-08-06 14:47:00 Test Item Value Reference Range Interpretation Comments Phosphorus (test code = Phosphorus) 4.8 2.5-4.5 [facility]2020-08-06 14:47:00 Test Item Value Reference Range Interpretation Comments Albumin Lvl (test code = Albumin Lvl) 3.9 3.6-5.1 [facility] CenterDduaruwTCGDPRIHPA7078-22-98 14:47:00 Test Item Value Reference Range Interpretation Comments Plt Count Estimated (test code = DECREASED Plt Count Estimated) [place] 507870-08-06 14:47:00 Test Item Value Reference Range Interpretation Comments WBC X 10x3 (test code = WBC X 10x3) 7.2 3.8-10.8 [place] 507870-08-06 14:47:00 Test Item Value Reference Range Interpretation Comments RBC X 10x6 (test code = RBC X 10x6) 3.71 3.80-5.10 [place] [address]-08-06 14:47:00 Test Item Value Reference Range Interpretation Comments Hgb (test code = Hgb) 10.7 11.7-15.5 [place] 507870-08-06 14:47:00 Test Item Value Reference Range Interpretation Comments Hct (test code = Hct) 33.9 35.0-45.0 [place] 507870-08-06 14:47:00 Test Item Value Reference Range Interpretation Comments MCV (test code = MCV) 91.4 80.0-100.0 [place] 507870-08-06 14:47:00 Test Item Value Reference Range Interpretation Comments MCH (test code = MCH) 28.8 pg 27.0-33.0 [place] 507870-08-06 14:47:00 Test Item Value Reference Range Interpretation Comments MCHC (test code = MCHC) 31.6 32.0-36.0 [place] 507870-08-06 14:47:00 Test Item Value Reference Range Interpretation Comments RDW (test code = RDW) 13.9 11.0-15.0 [place] [address]-08-06 14:47:00 Test Item Value Reference Range Interpretation Comments Platelet (test code = Platelet) 110 140-400 [facility] HospitalAvaakiaVRFHGHANKJ0567-94-00 14:47:00 Test Item Value Reference Range Interpretation Comments MPV (test code = MPV) 11.7 7.5-12.5 [facility] CenterNrnqgciTZONLCPKHM4213-46-62 14:47:00 Test Item Value Reference Range Interpretation Comments Neutrophils # (test code = Neutrophils 5414 6023-4035 #) [facility] HospitalDdixcayIPNSWOXAXL0071-92-67 14:47:00 Test Item Value Reference Range Interpretation Comments Lymphocytes # (test code = Lymphocytes 1404 170-3833 #) [facility] HospitalFwzbyfzIAPODLTQXK2887-15-41 14:47:00 Test Item Value Reference Range Interpretation Comments Monocytes # (test code = Monocytes #) 461 200-950 [facility] HospitalFafycyzOIRJWFPJAB7199-03-22 14:47:00 Test Item Value Reference Range Interpretation Comments Eosinophils # (test code = Eosinophils 122 15-500 #) [facility] HospitalCjecxxdDLUQZOFNTK7529-53-15 14:47:00 Test Item Value Reference Range Interpretation Comments Basophils # (test code 50 See_Comment [Aut omated message] The = Basophils #) system which generated this result tra nsmitted reference range : <=200. The reference r edy was not used to int erpret this result as normal/abnormal . [facility] CenterJwwtfgrLRXYHSMYZA7497-67-74 14:47:00 Test Item Value Reference Range Interpretation Comments Segs (test code = Segs) 75.2 [facility] CenterUfcrkbzTKXXJCVQTI3848-34-35 14:47:00 Test Item Value Reference Range Interpretation Comments Lymphocytes (test code = Lymphocytes) 16.0 [facility] HospitalBltumylICPFZGOJEH6914-02-86 14:47:00 Test Item Value Reference Range Interpretation Comments Monocytes (test code = Monocytes) 6.4 [facility] CenterOzkptioWIQPVALGMO2895-15-69 14:47:00 Test Item Value Reference Range Interpretation Comments Eosinophils (test code = Eosinophils) 1.7 [facility] HospitalQezpyilILRWFOQXDW1858-45-79 14:47:00 Test Item Value Reference Range Interpretation Comments Basophils (test code = Basophils) 0.7 [facility] LAB [id number] 14:47:00 Test Item Value Reference Range Interpretation Comments Result 2 (Urine Culture) See Result Comment (test code = Result 2 (Urine Culture)) [facility] [id number] 14:47:00 Test Item Value Reference Range Interpretation Comments UA Color (test code = UA Color) YELLOW [facility] [id number] 14:47:00 Test Item Value Reference Range Interpretation Comments UA Turbidity (test code = UA CLOUDY Turbidity) [facility] [id number] 14:47:00 Test Item Value Reference Range Interpretation Comments UA Spec Grav (test code = UA Spec 1.017 1 1.001-1.035 Grav) [facility] [id number] 14:47:00 Test Item Value Reference Range Interpretation Comments UA pH (test code = UA pH) 5.5 1 5.0-8.0 [facility] [id number] 14:47:00 Test Item Value Reference Range Interpretation Comments UA Glucose (test code = UA Glucose) NEGATIVE [facility] [id number] 14:47:00 Test Item Value Reference Range Interpretation Comments UA Bili (test code = UA Bili) NEGATIVE [facility] [id number] 14:47:00 Test Item Value Reference Range Interpretation Comments UA Ketones (test code = UA Ketones) NEGATIVE [facility] [id number] 14:47:00 Test Item Value Reference Range Interpretation Comments UA Blood (test code = UA Blood) 1+ [facility] [id number] 14:47:00 Test Item Value Reference Range Interpretation Comments UA Protein (test code = UA Protein) 1+ [facility] [id number] 14:47:00 Test Item Value Reference Range Interpretation Comments UA Nitrite (test code = UA Nitrite) POSITIVE [facility] [id number] 14:47:00 Test Item Value Reference Range Interpretation Comments UA Leuk Est (test code = UA Leuk Est) 2+ [facility] [id number] 14:47:00 Test Item Value Reference Range Interpretation Comments UA WBC (test code = UA WBC) > OR = 60 [facility] [id number] 14:47:00 Test Item Value Reference Range Interpretation Comments UA RBC (test code = UA RBC) 0-2 [facility] [id number] 14:47:00 Test Item Value Reference Range Interpretation Comments UA Sq Epi (test code = UA Sq Epi) NONE SEEN [facility] AND [id number] 14:47:00 Test Item Value Reference Range Interpretation Comments UA Bacteria (test code = UA Bacteria) MANY [facility] AND [id number] 14:47:00 Test Item Value Reference Range Interpretation Comments UA Hyal Cast (test code = UA Hyal NONE SEEN Cast) [facility] AND [id number] 14:47:00 Test Item Value Reference Range Interpretation Comments UA Reflex (test code CULTURE INDICATED - = UA Reflex) RESULTS TO FOLLOW [facility]2020-08-06 14:47:00 Test Item Value Reference Range Interpretation Comments U Creat mg/dL (test code = U Creat 114 20-275 mg/dL) [facility]2020-08-06 14:47:00 Test Item Value Reference Range Interpretation Comments U Alb (test code = U Alb) 16.7 [place] 658330-08-06 14:47:00 Test Item Value Reference Range Interpretation Comments U Alb/Crea (test code = U Alb/Crea) 146 [facility]2020-08-06 14:47:00 Test Item Value Reference Range Interpretation Comments Vitamin D, 25-OH, Total (test code = 37 30-100 Vitamin D, 25-OH, Total) [place] 387680-08-06 14:47:00 Test Item Value Reference Range Interpretation Comments U Creat mg/dL (test code = U Creat 114 20-275 mg/dL) [place] 387680-08-06 14:47:00 Test Item Value Reference Range Interpretation Comments U Prot/Creat (test code = U Prot/Creat) 430 21-161 [facility]2020-08-06 14:47:00 Test Item Value Reference Range Interpretation Comments U Prot/Creat (test code = U 0.430 1 0.021-0.161 Prot/Creat) [place] 387680-08-06 14:47:00 Test Item Value Reference Range Interpretation Comments U Protein (test code = U Protein) 49 5-24 [place] 387680-08-06 14:47:00 Test Item Value Reference Range Interpretation Comments Glucose Lvl (test code = Glucose Lvl) 103 65-99 [facility]2020-08-06 14:47:00 Test Item Value Reference Range Interpretation Comments BUN (test code = BUN) 24 7-25 [place] 387680-08-06 14:47:00 Test Item Value Reference Range Interpretation Comments Creatinine Lvl (test code = Creatinine 1.32 0.50-0.99 Lvl) [place] 387680-08-06 14:47:00 Test Item Value Reference Range Interpretation Comments eGFR NON-AFR. MALIAN (test code = 43 eGFR NON-AFR. MALIAN) [facility]2020-08-06 14:47:00 Test Item Value Reference Range Interpretation Comments eGFR (test code = eGFR 50 ) [place] 387680-08-06 14:47:00 Test Item Value Reference Range Interpretation Comments B/C Ratio (test code = B/C Ratio) 18 6-22 [place] 387680-08-06 14:47:00 Test Item Value Reference Range Interpretation Comments Sodium Lvl (test code = Sodium Lvl) 138 135-146 [place] 387680-08-06 14:47:00 Test Item Value Reference Range Interpretation Comments Potassium Lvl (test code = Potassium 4.4 3.5-5.3 Lvl) [facility] CenterInfoniqa GroupCRITICAL ACCESS [id number] 14:47:00 Test Item Value Reference Range Interpretation Comments Chloride Lvl (test code = Chloride Lvl) 102 98-110 [facility]2020-08-06 14:47:00 Test Item Value Reference Range Interpretation Comments CO2 (test code = CO2) 30 20-32 [place] 387680-08-06 14:47:00 Test Item Value Reference Range Interpretation Comments Calcium Lvl (test code = Calcium Lvl) 9.4 8.6-10.4 [place] 387680-08-06 14:47:00 Test Item Value Reference Range Interpretation Comments Phosphorus (test code = Phosphorus) 4.8 2.5-4.5 [place] 387680-08-06 14:47:00 Test Item Value Reference Range Interpretation Comments Albumin Lvl (test code = Albumin Lvl) 3.9 3.6-5.1 [facility] HospitalCkbzpdoOWSEYOTIGY3196-72-27 14:47:00 Test Item Value Reference Range Interpretation Comments Plt Count Estimated (test code = DECREASED Plt Count Estimated) [facility] CenterPcpypdeFTMUISKPWG7997-70-54 14:47:00 Test Item Value Reference Range Interpretation Comments WBC X 10x3 (test code = WBC X 10x3) 7.2 3.8-10.8 [place] 507870-08-06 14:47:00 Test Item Value Reference Range Interpretation Comments RBC X 10x6 (test code = RBC X 10x6) 3.71 3.80-5.10 [place] 507870-08-06 14:47:00 Test Item Value Reference Range Interpretation Comments Hgb (test code = Hgb) 10.7 11.7-15.5 [place] 507870-08-06 14:47:00 Test Item Value Reference Range Interpretation Comments Hct (test code = Hct) 33.9 35.0-45.0 [facility] CenterAvlqzdvGZYGBEOLYH6839-85-88 14:47:00 Test Item Value Reference Range Interpretation Comments MCV (test code = MCV) 91.4 80.0-100.0 [place] 507870-08-06 14:47:00 Test Item Value Reference Range Interpretation Comments MCH (test code = MCH) 28.8 pg 27.0-33.0 [facility] CenterDzqloaoARRZMAVMWY4871-09-84 14:47:00 Test Item Value Reference Range Interpretation Comments MCHC (test code = MCHC) 31.6 32.0-36.0 [facility] CenterPibrkaiGHMMIYSYGE2195-66-79 14:47:00 Test Item Value Reference Range Interpretation Comments RDW (test code = RDW) 13.9 11.0-15.0 [place] [address]-08-06 14:47:00 Test Item Value Reference Range Interpretation Comments Platelet (test code = Platelet) 110 140-400 [facility] CenterLjvqmjtEVXAXMJNCZ1864-42-99 14:47:00 Test Item Value Reference Range Interpretation Comments MPV (test code = MPV) 11.7 7.5-12.5 [place] 507870-08-06 14:47:00 Test Item Value Reference Range Interpretation Comments Neutrophils # (test code = Neutrophils 5433 4321-1185 #) [facility] CenterGojqqduRDCJXVZEHJ1455-85-22 14:47:00 Test Item Value Reference Range Interpretation Comments Lymphocytes # (test code = Lymphocytes 4021 761-3097 #) [facility] CenterTrisolpKIVDGPSYRU5300-43-08 14:47:00 Test Item Value Reference Range Interpretation Comments Monocytes # (test code = Monocytes #) 461 200-950 [facility] CenterYplilxuCRSIDSHCHJ6940-54-63 14:47:00 Test Item Value Reference Range Interpretation Comments Eosinophils # (test code = Eosinophils 122 15-500 #) [facility] HospitalXocyyzsFRPGQMHXHP6904-01-86 14:47:00 Test Item Value Reference Range Interpretation Comments Basophils # (test code 50 See_Comment [Aut omated message] The = Basophils #) system which generated this result tra nsmitted reference range : <=200. The reference r edy was not used to int erpret this result as normal/abnormal . [facility] HospitalIbnkwrbHJTWDCNPGJ7822-31-98 14:47:00 Test Item Value Reference Range Interpretation Comments Segs (test code = Segs) 75.2 [facility] HospitalSetfnfqTWJMQOFJJA9864-04-31 14:47:00 Test Item Value Reference Range Interpretation Comments Lymphocytes (test code = Lymphocytes) 16.0 [facility] HospitalDwkpyljIPHDZABQJX4907-90-81 14:47:00 Test Item Value Reference Range Interpretation Comments Monocytes (test code = Monocytes) 6.4 [facility] CenterJamhoguDQDGVFLUGT4449-52-10 14:47:00 Test Item Value Reference Range Interpretation Comments Eosinophils (test code = Eosinophils) 1.7 [facility] HospitalDiwcuymEMCKIOESSS7794-60-97 14:47:00 Test Item Value Reference Range Interpretation Comments Basophils (test code = Basophils) 0.7 [facility]REF[facility] [id number] 14:47:00 Test Item Value Reference Range Interpretation Comments Result 2 (Urine Culture) See Result Comment (test code = Result 2 (Urine Culture)) [facility]ann[facility] AND [id number] 14:47:00 Test Item Value Reference Range Interpretation Comments UA Color (test code = UA Color) YELLOW [facility]annSA[facility] AND [id number] 14:47:00 Test Item Value Reference Range Interpretation Comments UA Turbidity (test code = UA CLOUDY Turbidity) [facility]ann[facility] AND [id number] 14:47:00 Test Item Value Reference Range Interpretation Comments UA Spec Grav (test code = UA Spec 1.017 1 1.001-1.035 Grav) [facility] [id number] 14:47:00 Test Item Value Reference Range Interpretation Comments UA pH (test code = UA pH) 5.5 1 5.0-8.0 [facility] [id number] 14:47:00 Test Item Value Reference Range Interpretation Comments UA Glucose (test code = UA Glucose) NEGATIVE [facility] [id number] 14:47:00 Test Item Value Reference Range Interpretation Comments UA Bili (test code = UA Bili) NEGATIVE [facility] [id number] 14:47:00 Test Item Value Reference Range Interpretation Comments UA Ketones (test code = UA Ketones) NEGATIVE [facility] [id number] 14:47:00 Test Item Value Reference Range Interpretation Comments UA Blood (test code = UA Blood) 1+ [facility] [id number] 14:47:00 Test Item Value Reference Range Interpretation Comments UA Protein (test code = UA Protein) 1+ [facility] [id number] 14:47:00 Test Item Value Reference Range Interpretation Comments UA Nitrite (test code = UA Nitrite) POSITIVE [facility] [id number] 14:47:00 Test Item Value Reference Range Interpretation Comments UA Leuk Est (test code = UA Leuk Est) 2+ [facility] [id number] 14:47:00 Test Item Value Reference Range Interpretation Comments UA WBC (test code = UA WBC) > OR = 60 [facility] [id number] 14:47:00 Test Item Value Reference Range Interpretation Comments UA RBC (test code = UA RBC) 0-2 [facility] [id number] 14:47:00 Test Item Value Reference Range Interpretation Comments UA Sq Epi (test code = UA Sq Epi) NONE SEEN [facility] [id number] 14:47:00 Test Item Value Reference Range Interpretation Comments UA Bacteria (test code = UA Bacteria) MANY [facility] [id number] 14:47:00 Test Item Value Reference Range Interpretation Comments UA Hyal Cast (test code = UA Hyal NONE SEEN Cast) [facility] [id number] 14:47:00 Test Item Value Reference Range Interpretation Comments UA Reflex (test code CULTURE INDICATED - = UA Reflex) RESULTS TO FOLLOW [place] 658330-08-06 14:47:00 Test Item Value Reference Range Interpretation Comments U Creat mg/dL (test code = U Creat 114 20-275 mg/dL) [place] 658330-08-06 14:47:00 Test Item Value Reference Range Interpretation Comments U Alb (test code = U Alb) 16.7 [place] [address]-08-06 14:47:00 Test Item Value Reference Range Interpretation Comments U Alb/Crea (test code = U Alb/Crea) 146 [place] 387680-08-06 14:47:00 Test Item Value Reference Range Interpretation Comments Vitamin D, 25-OH, Total (test code = 37 30-100 Vitamin D, 25-OH, Total) [place] 387680-08-06 14:47:00 Test Item Value Reference Range Interpretation Comments U Creat mg/dL (test code = U Creat 114 20-275 mg/dL) [place] 387680-08-06 14:47:00 Test Item Value Reference Range Interpretation Comments U Prot/Creat (test code = U Prot/Creat) 430 21-161 [facility]2020-08-06 14:47:00 Test Item Value Reference Range Interpretation Comments U Prot/Creat (test code = U 0.430 1 0.021-0.161 Prot/Creat) [place] [address]-08-06 14:47:00 Test Item Value Reference Range Interpretation Comments U Protein (test code = U Protein) 49 5-24 [place] 387680-08-06 14:47:00 Test Item Value Reference Range Interpretation Comments Glucose Lvl (test code = Glucose Lvl) 103 65-99 [place] [id number] 14:47:00 Test Item Value Reference Range Interpretation Comments BUN (test code = BUN) 24 7-25 [place] 387680-08-06 14:47:00 Test Item Value Reference Range Interpretation Comments Creatinine Lvl (test code = Creatinine 1.32 0.50-0.99 Lvl) [place] 387680-08-06 14:47:00 Test Item Value Reference Range Interpretation Comments eGFR NON-AFR. MALIAN (test code = 43 eGFR NON-AFR. MALIAN) [place] 387680-08-06 14:47:00 Test Item Value Reference Range Interpretation Comments eGFR (test code = eGFR 50 ) [place] 387680-08-06 14:47:00 Test Item Value Reference Range Interpretation Comments B/C Ratio (test code = B/C Ratio) 18 6-22 [place] 387680-08-06 14:47:00 Test Item Value Reference Range Interpretation Comments Sodium Lvl (test code = Sodium Lvl) 138 135-146 [place] 387680-08-06 14:47:00 Test Item Value Reference Range Interpretation Comments Potassium Lvl (test code = Potassium 4.4 3.5-5.3 Lvl) [place] 387680-08-06 14:47:00 Test Item Value Reference Range Interpretation Comments Chloride Lvl (test code = Chloride Lvl) 102 98-110 [place] 387680-08-06 14:47:00 Test Item Value Reference Range Interpretation Comments CO2 (test code = CO2) 30 20-32 [place] 387680-08-06 14:47:00 Test Item Value Reference Range Interpretation Comments Calcium Lvl (test code = Calcium Lvl) 9.4 8.6-10.4 [place] 387680-08-06 14:47:00 Test Item Value Reference Range Interpretation Comments Phosphorus (test code = Phosphorus) 4.8 2.5-4.5 [place] 387680-08-06 14:47:00 Test Item Value Reference Range Interpretation Comments Albumin Lvl (test code = Albumin Lvl) 3.9 3.6-5.1 [place] 507870-08-06 14:47:00 Test Item Value Reference Range Interpretation Comments Plt Count Estimated (test code = DECREASED Plt Count Estimated) [place] 507870-08-06 14:47:00 Test Item Value Reference Range Interpretation Comments WBC X 10x3 (test code = WBC X 10x3) 7.2 3.8-10.8 [place] [address]-08-06 14:47:00 Test Item Value Reference Range Interpretation Comments RBC X 10x6 (test code = RBC X 10x6) 3.71 3.80-5.10 [place] 507870-08-06 14:47:00 Test Item Value Reference Range Interpretation Comments Hgb (test code = Hgb) 10.7 11.7-15.5 [facility]rsptdoWNVJBEUINV1380-59-95 14:47:00 Test Item Value Reference Range Interpretation Comments Hct (test code = Hct) 33.9 35.0-45.0 [facility] CenterCzjtdkdJXWQXGRTMR2132-26-44 14:47:00 Test Item Value Reference Range Interpretation Comments MCV (test code = MCV) 91.4 80.0-100.0 [facility] CenterFxwldqkVDRJIYVOJA5130-70-34 14:47:00 Test Item Value Reference Range Interpretation Comments MCH (test code = MCH) 28.8 pg 27.0-33.0 [facility] CenterJzelnvqAEPRFIRSEN6647-17-79 14:47:00 Test Item Value Reference Range Interpretation Comments MCHC (test code = MCHC) 31.6 32.0-36.0 [facility] CenterHgrjueaUPWZDNVJFO4270-02-37 14:47:00 Test Item Value Reference Range Interpretation Comments RDW (test code = RDW) 13.9 11.0-15.0 [facility] CenterBhuhxitZBGHYRDUXS6274-99-67 14:47:00 Test Item Value Reference Range Interpretation Comments Platelet (test code = Platelet) 110 140-400 [facility] CenterHczcgaxMZIUVRKCGZ8159-77-93 14:47:00 Test Item Value Reference Range Interpretation Comments MPV (test code = MPV) 11.7 7.5-12.5 [facility] CenterQpngvtuNVJETELEEP4468-53-02 14:47:00 Test Item Value Reference Range Interpretation Comments Neutrophils # (test code = Neutrophils 5414 0360-3173 #) [facility] CenterEstewjhESTIXYCEJH0971-03-17 14:47:00 Test Item Value Reference Range Interpretation Comments Lymphocytes # (test code = Lymphocytes 2805 398-1907 #) [facility] CenterOlwfopcYNRONDZTEZ9445-82-03 14:47:00 Test Item Value Reference Range Interpretation Comments Monocytes # (test code = Monocytes #) 461 200-950 [facility] CenterDdrcytaYKMUNRRWSA5076-34-52 14:47:00 Test Item Value Reference Range Interpretation Comments Eosinophils # (test code = Eosinophils 122 15-500 #) [facility] CenterTryokdeUNRXQVZEFN0854-01-88 14:47:00 Test Item Value Reference Range Interpretation Comments Basophils # (test code 50 See_Comment [Aut omated message] The = Basophils #) system which generated this result tra nsmitted reference range : <=200. The reference r edy was not used to int erpret this result as normal/abnormal . [facility]fgAQROOKPRKL6705-32-95 14:47:00 Test Item Value Reference Range Interpretation Comments Segs (test code = Segs) 75.2 [facility] HospitalRdrlsttVURRJUBDKA9354-16-29 14:47:00 Test Item Value Reference Range Interpretation Comments Lymphocytes (test code = Lymphocytes) 16.0 [facility] HospitalPvmgnwkARPJFFEBTK0782-83-72 14:47:00 Test Item Value Reference Range Interpretation Comments Monocytes (test code = Monocytes) 6.4 [facility] HospitalKyezgonQZLFKPKVJY8460-38-77 14:47:00 Test Item Value Reference Range Interpretation Comments Eosinophils (test code = Eosinophils) 1.7 [facility] HospitalGnxtewkABETIHLGSP4378-79-64 14:47:00 Test Item Value Reference Range Interpretation Comments Basophils (test code = Basophils) 0.7 [facility] [id number] 14:47:00 Test Item Value Reference Range Interpretation Comments Result 2 (Urine Culture) See Result Comment (test code = Result 2 (Urine Culture)) [facility] AND [id number] 14:47:00 Test Item Value Reference Range Interpretation Comments UA Color (test code = UA Color) YELLOW [facility] AND [id number] 14:47:00 Test Item Value Reference Range Interpretation Comments UA Turbidity (test code = UA CLOUDY Turbidity) [facility] AND [id number] 14:47:00 Test Item Value Reference Range Interpretation Comments UA Spec Grav (test code = UA Spec 1.017 1 1.001-1.035 Grav) [facility] AND [id number] 14:47:00 Test Item Value Reference Range Interpretation Comments UA pH (test code = UA pH) 5.5 1 5.0-8.0 [facility] AND [id number] 14:47:00 Test Item Value Reference Range Interpretation Comments UA Glucose (test code = UA Glucose) NEGATIVE [facility] AND [id number] 14:47:00 Test Item Value Reference Range Interpretation Comments UA Bili (test code = UA Bili) NEGATIVE [facility] AND [id number] 14:47:00 Test Item Value Reference Range Interpretation Comments UA Ketones (test code = UA Ketones) [facility]GATIVE [facility] [id number] 14:47:00 Test Item Value Reference Range Interpretation Comments UA Blood (test code = UA Blood) 1+ [facility] [id number] 14:47:00 Test Item Value Reference Range Interpretation Comments UA Protein (test code = UA Protein) 1+ [facility] [id number] 14:47:00 Test Item Value Reference Range Interpretation Comments UA Nitrite (test code = UA Nitrite) POSITIVE [facility] [id number] 14:47:00 Test Item Value Reference Range Interpretation Comments UA Leuk Est (test code = UA Leuk Est) 2+ [facility] [id number] 14:47:00 Test Item Value Reference Range Interpretation Comments UA WBC (test code = UA WBC) > OR = 60 [facility] [id number] 14:47:00 Test Item Value Reference Range Interpretation Comments UA RBC (test code = UA RBC) 0-2 [facility] [id number] 14:47:00 Test Item Value Reference Range Interpretation Comments UA Sq Epi (test code = UA Sq Epi) NONE SEEN [facility] [id number] 14:47:00 Test Item Value Reference Range Interpretation Comments UA Bacteria (test code = UA Bacteria) MANY [facility] [id number] 14:47:00 Test Item Value Reference Range Interpretation Comments UA Hyal Cast (test code = UA Hyal NONE SEEN Cast) [facility] [id number] 14:47:00 Test Item Value Reference Range Interpretation Comments UA Reflex (test code CULTURE INDICATED - = UA Reflex) RESULTS TO FOLLOW [facility] [id number] 14:47:00 Test Item Value Reference Range Interpretation Comments U Creat mg/dL (test code = U Creat 114 20-275 mg/dL) [facility] [id number] 14:47:00 Test Item Value Reference Range Interpretation Comments U Alb (test code = U Alb) 16.7 [facility] [id number] 14:47:00 Test Item Value Reference Range Interpretation Comments U Alb/Crea (test code = U Alb/Crea) 146 [facility]annCRITICAL ACCESS [id number] 14:47:00 Test Item Value Reference Range Interpretation Comments Vitamin D, 25-OH, Total (test code = 37 30-100 Vitamin D, 25-OH, Total) [facility]2020-08-06 14:47:00 Test Item Value Reference Range Interpretation Comments U Creat mg/dL (test code = U Creat 114 20-275 mg/dL) [facility] [id number] 14:47:00 Test Item Value Reference Range Interpretation Comments U Prot/Creat (test code = U Prot/Creat) 430 21-161 [place] 387680-08-06 14:47:00 Test Item Value Reference Range Interpretation Comments U Prot/Creat (test code = U 0.430 1 0.021-0.161 Prot/Creat) [facility]2020-08-06 14:47:00 Test Item Value Reference Range Interpretation Comments U Protein (test code = U Protein) 49 5-24 [facility] [id number] 14:47:00 Test Item Value Reference Range Interpretation Comments Glucose Lvl (test code = Glucose Lvl) 103 65-99 [facility] [id number] 14:47:00 Test Item Value Reference Range Interpretation Comments BUN (test code = BUN) 24 7-25 [facility] [id number] 14:47:00 Test Item Value Reference Range Interpretation Comments Creatinine Lvl (test code = Creatinine 1.32 0.50-0.99 Lvl) [facility] [id number] 14:47:00 Test Item Value Reference Range Interpretation Comments eGFR NON-AFR. MALIAN (test code = 43 eGFR NON-AFR. MALIAN) [facility]2020-08-06 14:47:00 Test Item Value Reference Range Interpretation Comments eGFR (test code = eGFR 50 ) [facility] CenterGex[facility] Holdings [id number] 14:47:00 Test Item Value Reference Range Interpretation Comments B/C Ratio (test code = B/C Ratio) 18 6-22 [facility] [id number] 14:47:00 Test Item Value Reference Range Interpretation Comments Sodium Lvl (test code = Sodium Lvl) 138 135-146 [facility] [id number] 14:47:00 Test Item Value Reference Range Interpretation Comments Potassium Lvl (test code = Potassium 4.4 3.5-5.3 Lvl) [place] 387680-08-06 14:47:00 Test Item Value Reference Range Interpretation Comments Chloride Lvl (test code = Chloride Lvl) 102 98-110 [place] [address]-08-06 14:47:00 Test Item Value Reference Range Interpretation Comments CO2 (test code = CO2) 30 20-32 [place] 387680-08-06 14:47:00 Test Item Value Reference Range Interpretation Comments Calcium Lvl (test code = Calcium Lvl) 9.4 8.6-10.4 [place] [address]-08-06 14:47:00 Test Item Value Reference Range Interpretation Comments Phosphorus (test code = Phosphorus) 4.8 2.5-4.5 [place] 387680-08-06 14:47:00 Test Item Value Reference Range Interpretation Comments Albumin Lvl (test code = Albumin Lvl) 3.9 3.6-5.1 [place] [address]-08-06 14:47:00 Test Item Value Reference Range Interpretation Comments Plt Count Estimated (test code = DECREASED Plt Count Estimated) [place] [address]-08-06 14:47:00 Test Item Value Reference Range Interpretation Comments WBC X 10x3 (test code = WBC X 10x3) 7.2 3.8-10.8 [place] [address]-08-06 14:47:00 Test Item Value Reference Range Interpretation Comments RBC X 10x6 (test code = RBC X 10x6) 3.71 3.80-5.10 [place] [address]-08-06 14:47:00 Test Item Value Reference Range Interpretation Comments Hgb (test code = Hgb) 10.7 11.7-15.5 [place] [address]-08-06 14:47:00 Test Item Value Reference Range Interpretation Comments Hct (test code = Hct) 33.9 35.0-45.0 [place] [address]-08-06 14:47:00 Test Item Value Reference Range Interpretation Comments MCV (test code = MCV) 91.4 80.0-100.0 [place] [address]-08-06 14:47:00 Test Item Value Reference Range Interpretation Comments MCH (test code = MCH) 28.8 pg 27.0-33.0 [facility] CenterNxdtaqfDOJXAHGGUQ2470-07-13 14:47:00 Test Item Value Reference Range Interpretation Comments MCHC (test code = MCHC) 31.6 32.0-36.0 [facility] CenterRdhwsctFSPGTQQNME9048-90-30 14:47:00 Test Item Value Reference Range Interpretation Comments RDW (test code = RDW) 13.9 11.0-15.0 [facility] CenterKxxannpYOTVOVBUCS0189-35-59 14:47:00 Test Item Value Reference Range Interpretation Comments Platelet (test code = Platelet) 110 140-400 [facility] CenterUxkbtwpZDOCHDWJDK9354-22-09 14:47:00 Test Item Value Reference Range Interpretation Comments MPV (test code = MPV) 11.7 7.5-12.5 [facility] CenterBivrpqzWWCNSCAGSH8201-59-18 14:47:00 Test Item Value Reference Range Interpretation Comments Neutrophils # (test code = Neutrophils 5414 0561-1213 #) [facility] CenterXxzdcbnDIEGRPGYTA7666-45-94 14:47:00 Test Item Value Reference Range Interpretation Comments Lymphocytes # (test code = Lymphocytes 3750 385-8517 #) [facility] CenterVgqqoraBUCYTMJFKX7081-18-84 14:47:00 Test Item Value Reference Range Interpretation Comments Monocytes # (test code = Monocytes #) 461 200-950 [facility] CenterQtqbvztOEKDDPHUEE1121-31-73 14:47:00 Test Item Value Reference Range Interpretation Comments Eosinophils # (test code = Eosinophils 122 15-500 #) [facility] CenterMksvpnpXTMGDUFTQK9652-73-34 14:47:00 Test Item Value Reference Range Interpretation Comments Basophils # (test code 50 See_Comment [Aut omated message] The = Basophils #) system which generated this result tra nsmitted reference range : <=200. The reference r edy was not used to int erpret this result as normal/abnormal . [facility] CenterIbqkrjaHFMQRCRAZH5476-29-09 14:47:00 Test Item Value Reference Range Interpretation Comments Segs (test code = Segs) 75.2 [place] 507870-08-06 14:47:00 Test Item Value Reference Range Interpretation Comments Lymphocytes (test code = Lymphocytes) 16.0 [place] 507870-08-06 14:47:00 Test Item Value Reference Range Interpretation Comments Monocytes (test code = Monocytes) 6.4 [facility] HospitalAjcnkhoVJHLRJWMPU6167-49-46 14:47:00 Test Item Value Reference Range Interpretation Comments Eosinophils (test code = Eosinophils) 1.7 [facility] CenterFzehmyiHTODOUOHBP1915-02-88 14:47:00 Test Item Value Reference Range Interpretation Comments Basophils (test code = Basophils) 0.7 [facility] [id number] 14:47:00 Test Item Value Reference Range Interpretation Comments Result 2 (Urine Culture) See Result Comment (test code = Result 2 (Urine Culture)) [facility] AND [id number] 14:47:00 Test Item Value Reference Range Interpretation Comments UA Color (test code = UA Color) YELLOW [facility] AND [id number] 14:47:00 Test Item Value Reference Range Interpretation Comments UA Turbidity (test code = UA CLOUDY Turbidity) [facility] AND [id number] 14:47:00 Test Item Value Reference Range Interpretation Comments UA Spec Grav (test code = UA Spec 1.017 1 1.001-1.035 Grav) [facility] AND [id number] 14:47:00 Test Item Value Reference Range Interpretation Comments UA pH (test code = UA pH) 5.5 1 5.0-8.0 [facility] AND [id number] 14:47:00 Test Item Value Reference Range Interpretation Comments UA Glucose (test code = UA Glucose) NEGATIVE [facility] AND [id number] 14:47:00 Test Item Value Reference Range Interpretation Comments UA Bili (test code = UA Bili) NEGATIVE [facility] AND [id number] 14:47:00 Test Item Value Reference Range Interpretation Comments UA Ketones (test code = UA Ketones) NEGATIVE [facility] AND [id number] 14:47:00 Test Item Value Reference Range Interpretation Comments UA Blood (test code = UA Blood) 1+ [facility]ann[facility] AND [id number] 14:47:00 Test Item Value Reference Range Interpretation Comments UA Protein (test code = UA Protein) 1+ [facility]ann[facility] AND [id number] 14:47:00 Test Item Value Reference Range Interpretation Comments UA Nitrite (test code = UA Nitrite) POSITIVE [facility] AND [id number] 14:47:00 Test Item Value Reference Range Interpretation Comments UA Leuk Est (test code = UA Leuk Est) 2+ [facility] AND [id number] 14:47:00 Test Item Value Reference Range Interpretation Comments UA WBC (test code = UA WBC) > OR = 60 [facility] AND [id number] 14:47:00 Test Item Value Reference Range Interpretation Comments UA RBC (test code = UA RBC) 0-2 [facility] AND [id number] 14:47:00 Test Item Value Reference Range Interpretation Comments UA Sq Epi (test code = UA Sq Epi) NONE [facility]EN [facility] AND [id number] 14:47:00 Test Item Value Reference Range Interpretation Comments UA Bacteria (test code = UA Bacteria) MANY [facility] AND [id number] 14:47:00 Test Item Value Reference Range Interpretation Comments UA Hyal Cast (test code = UA Hyal NONE SEEN Cast) [facility] AND [id number] 14:47:00 Test Item Value Reference Range Interpretation Comments UA Reflex (test code CULTURE INDICATED - = UA Reflex) RESULTS TO FOLLOW [facility]2020-08-06 14:47:00 Test Item Value Reference Range Interpretation Comments U Creat mg/dL (test code = U Creat 114 20-275 mg/dL) [facility]2020-08-06 14:47:00 Test Item Value Reference Range Interpretation Comments U Alb (test code = U Alb) 16.7 [facility]2020-08-06 14:47:00 Test Item Value Reference Range Interpretation Comments U Alb/Crea (test code = U Alb/Crea) 146 [facility]2020-08-06 14:47:00 Test Item Value Reference Range Interpretation Comments Vitamin D, 25-OH, Total (test code = 37 30-100 Vitamin D, 25-OH, Total) [facility]2020-08-06 14:47:00 Test Item Value Reference Range Interpretation Comments U Creat mg/dL (test code = U Creat 114 20-275 mg/dL) [facility]2020-08-06 14:47:00 Test Item Value Reference Range Interpretation Comments U Prot/Creat (test code = U Prot/Creat) 430 21-161 [facility]2020-08-06 14:47:00 Test Item Value Reference Range Interpretation Comments U Prot/Creat (test code = U 0.430 1 0.021-0.161 Prot/Creat) [facility]2020-08-06 14:47:00 Test Item Value Reference Range Interpretation Comments U Protein (test code = U Protein) 49 5-24 [facility]2020-08-06 14:47:00 Test Item Value Reference Range Interpretation Comments Glucose Lvl (test code = Glucose Lvl) 103 65-99 [facility]2020-08-06 14:47:00 Test Item Value Reference Range Interpretation Comments BUN (test code = BUN) 24 7-25 [facility]2020-08-06 14:47:00 Test Item Value Reference Range Interpretation Comments Creatinine Lvl (test code = Creatinine 1.32 0.50-0.99 Lvl) [facility]2020-08-06 14:47:00 Test Item Value Reference Range Interpretation Comments eGFR NON-AFR. MALIAN (test code = 43 eGFR NON-AFR. MALIAN) [facility]2020-08-06 14:47:00 Test Item Value Reference Range Interpretation Comments eGFR (test code = eGFR 50 ) [facility]2020-08-06 14:47:00 Test Item Value Reference Range Interpretation Comments B/C Ratio (test code = B/C Ratio) 18 6-22 [facility]2020-08-06 14:47:00 Test Item Value Reference Range Interpretation Comments Sodium Lvl (test code = Sodium Lvl) 138 135-146 [facility]2020-08-06 14:47:00 Test Item Value Reference Range Interpretation Comments Potassium Lvl (test code = Potassium 4.4 3.5-5.3 Lvl) [facility] PROTEIN ELECTROPHORESIS-24HR [id number] 08:01:00 Test Item Value Reference Range Interpretation Comments CREATININE, 24 HOUR 1.45 g/24 h 0.50-2.15 URINE (test code = 47416858) PROTEIN/CREATININE 292 mg/g creat < OR = 114 H RATION (test code = 14246425) PROTEIN, TOTAL 24 HR UR 424 mg/24 h <150 H TEST PERFORMED (test code = 23505821) AT:[facility] IN [address] [id number] BOYCE MD ALBUMIN (test code = 35 % 66096622) [id number]-9-XXHZUXKBL (test 10 % code = 42197299) NIJYG-7-POOUBBHBD (test 12 % code = 33182868) BETA GLOBULINS (test 25 % code = 51143417) GAMMA GLOBULINS (test 18 % code = 93202558) INTERPRETATION (test Albumin and code = 56109393) various dann bulin fractions detected on proteinelectrop ho resis. No abnormal protei n bands (Bence-Jonespro te inuria) detected.TEST PERFORMED AT:[facility] [address] [address]DEGEXNIECY BOYCE MD NEUTROPHIL CYTOPLASMIC [id number] 05:19:00 Test Item Value Reference Range Interpretation Comments ANCA SCREEN (test NEGATIVE NEGATIVE ANCA Scree n includes code = 95049150) evaluation for p-ANCA, c-ANCA andatypi alexandre p-ANCA. [...] ofpat ients with Crohn's disease .TEST PERFORMED AT:[facility] [id number] [place] [address]YMCZJOSCAR EISENBERG MD,PHD ,MICHI COMPREHENSIVE METABOLIC [id number] 06:25:00 Test Item Value Reference Range Interpretation [...] MORPH (test code = RBCMOR) NORMAL URINE [id number] 09:53:00 Test Item Value Reference Range Interpretation [...] = VD) 36.0 ng/mL 30.0-100.0 SERUM PROTEIN [id number] 06:20:00 Test Item Value Reference Range Interpretation Comments PROTEIN TOTAL (test 5.7 g/dL 6.1-8.1 L TEST PER FORMED AT:QUEST code = 86783170) DIAGNOSTICS -[id number] [facility] [place] [place] [address]HVABVNIECY BOYCE MD ALBUMIN (test code = 3.2 g/dL 3.8-4.8 L 96741399) MOQAO-6-REZINYGBO 0.4 g/dL 0.2-0.3 H (test code = 42156265) TNLPI-8-GHWDCPSLO 0.8 g/dL 0.5-0.9 (test code = 19249078) BETA 1 GLOBULIN (test 0.5 g/dL 0.4-0.6 code = 89584973) BETA 2 GLOBULIN (test 0.2 g/dL 0.2-0.5 code = 66176836) GAMMA GLOBULINS (test 0.6 g/dL 0.8-1.7 L code = 38661058) INTERPRETATION (test Pattern consistent with code = 09096477) an acute ph ase reactionConsist ent with hypogammaglobul inemia. Serum free ligh tchains or urine immuno fixation should be consi dered ifplasma cell d yscrasias are a possible clinicaldiagnos is.TEST PERFORMED AT:[facility] [id number] [facility] [place] [place] [address]VQKPM Scott BOYCE MD [id number] 06:13:00 Test Item Value Reference Range Interpretation Comments MAGNESIUM (test code = 48A) 1.7 mg/dL 1.8-2.4 L COMPREHENSIVE METABOLIC [id number] 06:13:00 Test Item Value Reference Range Interpretation [...] (test code = RBCMOR) NORMAL COMPREHENSIVE METABOLIC [id number] 05:30:00 Test Item Value Reference Range Interpretation [...] (test code = RBCMOR) NORMAL URINALYSIS WITH [id number] 06:44:00 Test Item Value Reference Range Interpretation [...] code = USPERM) /HPF NONE COMPREHENSIVE METABOLIC [id number] 05:24:00 Test Item Value Reference Range Interpretation [...] = RBCMOR) NORMAL U/S KIDNEY (RENAL)2019-06-06 23:20:42LOCATION: [id number]: 63-year-old female who presents with acute nontraumatic [...] jet was observed onthe color flow study.TROPONIN [id number] 07:14:00 Test Item Value Reference Range Interpretation Comments TROPONIN I (test code = A84) <0.015 ng/mL 0.000-0.045 COMPREHENSIVE METABOLIC [id number] 05:28:00 Test Item Value Reference Range Interpretation [...] (test code = RBCMOR) NORMAL COMPREHENSIVE METABOLIC [id number] 04:58:00 Test Item Value Reference Range Interpretation [...] (test code = MDIFF) NO NO CARDIAC [id number] 23:10:00 Test Item Value Reference Range Interpretation Comments TROPONIN I (test code = A84) <0.015 ng/mL 0.000-0.045 U/S VENOUS DOPPLER BALDO LOW [id number] 22:23:14LOCATION: [id number]: 63-year-old female who presents with bilateral leg [...] thrombosis in either of thispatient's legs. CARDIAC [id number] 16:50:00 Test Item Value Reference Range Interpretation Comments TROPONIN I (test code = A84) <0.015 ng/mL 0.000-0.045 BRAIN NATRIURETIC [id number] 14:39:00 Test Item Value Reference Range Interpretation Comments proBNP (test code = PBNP) 1337 pg/mL 0-125 H THYROID PANEL/SCREEN (TSH)2019-06-04 12:05:00 Test Item Value Reference Range Interpretation Comments TSH (test code = A57) 0.989 uIU/mL 0.358-3.740 [id number] 12:02:00 Test Item Value Reference Range Interpretation Comments CPK (test code = 32A) 98 IU/L 26-192 AMYLASE AND [id number] 12:02:00 Test Item Value Reference Range Interpretation Comments AMYLASE (test code = 10A) 19 U/L 28-100 L LIPASE (test code = 60A) 67 IU/L 73-393 L COMPREHENSIVE METABOLIC [id number] 12:02:00 Test Item Value Reference Range Interpretation [...] code = 31A) 41 IU/L <=78 TROPONIN [id number] 11:57:00 Test Item Value Reference Range Interpretation Comments TROPONIN I (test code = A84) <0.015 ng/mL 0.000-0.045 XR CHEST 1 VIEW [id number] 11:55:22EXAM: XR CHEST 1 VIEW PORTABLE.LOCATION: D4.HISTORY: [id number]: Chest pain.COMPARISON: Radiograph dated 05/12/2019.TECHNIQUE: Single AP view of the chest was obtained. FINDINGS:The heart is enlarged in size. Small left pleural effusion and left basilaropacities are present. There is elevation of the right hemidiaphragm. No acuteosseous abnormality is identified.IMPRESSION:Small left pleural effusion with left basilar opacities, which may representatelectasis or infiltrates.Cardiomegaly. PRO TIME AND [id number] 11:43:00 Test Item Value Reference Range Interpretation [...] (test code = RBCMOR) NORMAL CBC WITH [id number] 15:29:00 Test Item Value Reference Range Interpretation [...] NORMAL (1.5-3 um) NORMAL PLTMOR) BASIC METABOLIC [id number] 15:26:00 Test Item Value Reference Range Interpretation [...] code = 09D) 9.2 mg/dL 8.3-9.5 CARDIAC [id number] 06:04:00 Test Item Value Reference Range Interpretation Comments TROPONIN I (test code = A84) <0.015 ng/mL 0.000-0.045 BASIC METABOLIC [id number] 05:52:00 Test Item Value Reference Range Interpretation [...] MORPH (test code = RBCMOR) NORMAL CARDIAC [id number] 23:08:00 Test Item Value Reference Range Interpretation Comments TROPONIN I (test code = A84) <0.015 ng/mL 0.000-0.045 CT DISSECTION [id number] 19:26:35Exam: CT thorax PE protocol.Location: 12History: [id number]: Chest painTechnique: Enhanced spiral slices were taken [...] code = A57) 0.706 uIU/mL 0.358-3.740 LIVER [id number] 18:28:00 Test Item Value Reference Range Interpretation [...] = 31A) 21 IU/L <=78 BRAIN NATRIURETIC [id number] 18:19:00 Test Item Value Reference Range Interpretation Comments proBNP (test code = PBNP) 518 pg/mL 0-125 H [id number] 18:15:00 Test Item Value Reference Range Interpretation Comments MAGNESIUM (test code = 48A) 1.9 mg/dL 1.8-2.4 [id number] 17:40:00 Test Item Value Reference Range Interpretation Comments D-DIMER (test code = <200 ng/mL D-DU 0-234 DDI) D-DIMER COMMENT (test *Level to rule out code = DDCOM) DVT or PE: <235 ng/mL D-DU* CARDIAC [id number] 17:31:00 Test Item Value Reference Range Interpretation Comments TROPONIN I (test code = A84) <0.015 ng/mL 0.000-0.045 BASIC METABOLIC [id number] 17:27:00 Test Item Value Reference Range Interpretation [...] LMW Heparin. Order Code is ANTI-XA PROTHROMBIN [id number] 17:26:00 Test Item Value Reference Range Interpretation Comments PT (test code = 12.0 s 9.8-13.6 TT) INR (test code = 1.1 INR) INRH (test code = SUGGESTED THERAPEUTIC INRH) RANGE FOR INR: 2.5 - 3.5 For Patients with Prosthetic Valves or Patients with recurrent Thromboembolic Events 2.0 - 3.0 For Most Other Applications XR CHEST 1 VIEW [id number] 17:04:28Portable AP chest, 1 viewLocation Code: [id number] HISTORY: Chest painCOMPARISON: NoneCOMMENT: Mild atelectasis is present within the lung bases. The costophrenic angles aresharp. The cardiomediastinalsilhouette is unremarkable. The bones are intact.IMPRESSION: Mild bibasilar atelectasis. Otherwise, no acute abnormalityCHEM [id number] 16:51:00 Test Item Value Reference Range Interpretation Comments Creatinine Lvl (test code = Creatinine 1.15 0.50-1.40 Lvl) [facility]2017-01-24 16:51:00 Test Item Value Reference Range Interpretation Comments BUN (test code = BUN) 16 05-12 [facility]2017-01-24 16:51:00 Test Item Value Reference Range Interpretation Comments Chloride Lvl (test code = Chloride Lvl) 109 95-109 [facility]2017-01-24 16:51:00 Test Item Value Reference Range Interpretation Comments Potassium Lvl (test code = Potassium 4.3 3.5-5.1 Lvl) [facility]2017-01-24 16:51:00 Test Item Value Reference Range Interpretation Comments Sodium Lvl (test code = Sodium Lvl) 144 135-145 [facility]2017-01-24 16:51:00 Test Item Value Reference Range Interpretation Comments CO2 (test code = CO2) 28 -32 [facility]2017-01-24 16:51:00 Test Item Value Reference Range Interpretation Comments Calcium Lvl (test code = Calcium Lvl) 8.4 8.5-10.5 [facility]2017-01-24 16:51:00 Test Item Value Reference Range Interpretation Comments AGAP (test code = AGAP) 11.3 10.0-20.0 [facility]2017-01-24 16:51:00 Test Item Value Reference Range Interpretation Comments Glucose Lvl (test code = Glucose Lvl) 109 70-99 [facility]2017-01-24 16:51:00 Test Item Value Reference Range Interpretation Comments eGFR (test code = eGFR) 52 [facility]2017-01-24 16:51:00 Test Item Value Reference Range Interpretation Comments Creatinine Lvl (test code = Creatinine 1.15 0.50-1.40 Lvl) [facility]2017-01-24 16:51:00 Test Item Value Reference Range Interpretation Comments BUN (test code = BUN) 16 05-12 [facility]2017-01-24 16:51:00 Test Item Value Reference Range Interpretation Comments Chloride Lvl (test code = Chloride Lvl) 109 95-109 [facility]2017-01-24 16:51:00 Test Item Value Reference Range Interpretation Comments Potassium Lvl (test code = Potassium 4.3 3.5-5.1 Lvl) [facility]2017-01-24 16:51:00 Test Item Value Reference Range Interpretation Comments Sodium Lvl (test code = Sodium Lvl) 144 135-145 [facility]2017-01-24 16:51:00 Test Item Value Reference Range Interpretation Comments CO2 (test code = CO2) [facility]2017-01-24 16:51:00 Test Item Value Reference Range Interpretation Comments Calcium Lvl (test code = Calcium Lvl) 8.4 8.5-10.5 [facility]2017-01-24 16:51:00 Test Item Value Reference Range Interpretation Comments AGAP (test code = AGAP) 11.3 10.0-20.0 [facility]2017-01-24 16:51:00 Test Item Value Reference Range Interpretation Comments Glucose Lvl (test code = Glucose Lvl) 109 70-99 [facility]2017-01-24 16:51:00 Test Item Value Reference Range Interpretation Comments eGFR (test code = eGFR) 52 [facility]2017-01-24 16:51:00 Test Item Value Reference Range Interpretation Comments Creatinine Lvl (test code = Creatinine 1.15 0.50-1.40 Lvl) [facility]2017-01-24 16:51:00 Test Item Value Reference Range Interpretation Comments BUN (test code = BUN) 16 - [facility]2017-01-24 16:51:00 Test Item Value Reference Range Interpretation Comments Chloride Lvl (test code = Chloride Lvl) 109 95-109 [facility]2017-01-24 16:51:00 Test Item Value Reference Range Interpretation Comments Potassium Lvl (test code = Potassium 4.3 3.5-5.1 Lvl) [facility]2017-01-24 16:51:00 Test Item Value Reference Range Interpretation Comments Sodium Lvl (test code = Sodium Lvl) 144 135-145 [facility]2017-01-24 16:51:00 Test Item Value Reference Range Interpretation Comments CO2 (test code = CO2) [facility]2017-01-24 16:51:00 Test Item Value Reference Range Interpretation Comments Calcium Lvl (test code = Calcium Lvl) 8.4 8.5-10.5 [facility]2017-01-24 16:51:00 Test Item Value Reference Range Interpretation Comments AGAP (test code = AGAP) 11.3 10.0-20.0 [facility]2017-01-24 16:51:00 Test Item Value Reference Range Interpretation Comments Glucose Lvl (test code = Glucose Lvl) 109 70-99 [facility]2017-01-24 16:51:00 Test Item Value Reference Range Interpretation Comments eGFR (test code = eGFR) 52 [facility]2017-01-24 16:51:00 Test Item Value Reference Range Interpretation Comments Creatinine Lvl (test code = Creatinine 1.15 0.50-1.40 Lvl) [facility]2017-01-24 16:51:00 Test Item Value Reference Range Interpretation Comments BUN (test code = BUN) 16 - [facility]2017-01-24 16:51:00 Test Item Value Reference Range Interpretation Comments Chloride Lvl (test code = Chloride Lvl) 109 95-109 [facility]2017-01-24 16:51:00 Test Item Value Reference Range Interpretation Comments Potassium Lvl (test code = Potassium 4.3 3.5-5.1 Lvl) [facility]2017-01-24 16:51:00 Test Item Value Reference Range Interpretation Comments Sodium Lvl (test code = Sodium Lvl) 144 135-145 [facility]2017-01-24 16:51:00 Test Item Value Reference Range Interpretation Comments CO2 (test code = CO2) 28 24-32 [facility]2017-01-24 16:51:00 Test Item Value Reference Range Interpretation Comments Calcium Lvl (test code = Calcium Lvl) 8.4 8.5-10.5 [facility]2017-01-24 16:51:00 Test Item Value Reference Range Interpretation Comments AGAP (test code = AGAP) 11.3 10.0-20.0 [facility]2017-01-24 16:51:00 Test Item Value Reference Range Interpretation Comments Glucose Lvl (test code = Glucose Lvl) 109 70-99 [facility]2017-01-24 16:51:00 Test Item Value Reference Range Interpretation Comments eGFR (test code = eGFR) 52 [facility]2017-01-24 16:51:00 Test Item Value Reference Range Interpretation Comments Creatinine Lvl (test code = Creatinine 1.15 0.50-1.40 Lvl) [facility]2017-01-24 16:51:00 Test Item Value Reference Range Interpretation Comments BUN (test code = BUN) 16 05-12 [facility]2017-01-24 16:51:00 Test Item Value Reference Range Interpretation Comments Chloride Lvl (test code = Chloride Lvl) 109 95-109 [facility]2017-01-24 16:51:00 Test Item Value Reference Range Interpretation Comments Potassium Lvl (test code = Potassium 4.3 3.5-5.1 Lvl) [facility]2017-01-24 16:51:00 Test Item Value Reference Range Interpretation Comments Sodium Lvl (test code = Sodium Lvl) 144 135-145 [facility]2017-01-24 16:51:00 Test Item Value Reference Range Interpretation Comments CO2 (test code = CO2) 28 24-32 [facility]2017-01-24 16:51:00 Test Item Value Reference Range Interpretation Comments Calcium Lvl (test code = Calcium Lvl) 8.4 8.5-10.5 [facility]2017-01-24 16:51:00 Test Item Value Reference Range Interpretation Comments AGAP (test code = AGAP) 11.3 10.0-20.0 [facility]2017-01-24 16:51:00 Test Item Value Reference Range Interpretation Comments Glucose Lvl (test code = Glucose Lvl) 109 70-99 [facility]2017-01-24 16:51:00 Test Item Value Reference Range Interpretation Comments eGFR (test code = eGFR) 52 [facility]2017-01-24 16:51:00 Test Item Value Reference Range Interpretation Comments Creatinine Lvl (test code = Creatinine 1.15 0.50-1.40 Lvl) [facility]2017-01-24 16:51:00 Test Item Value Reference Range Interpretation Comments BUN (test code = BUN) 16 - [facility]2017-01-24 16:51:00 Test Item Value Reference Range Interpretation Comments Chloride Lvl (test code = Chloride Lvl) 109 95-109 [facility]2017-01-24 16:51:00 Test Item Value Reference Range Interpretation Comments Potassium Lvl (test code = Potassium 4.3 3.5-5.1 Lvl) [facility]2017-01-24 16:51:00 Test Item Value Reference Range Interpretation Comments Sodium Lvl (test code = Sodium Lvl) 144 135-145 [facility]2017-01-24 16:51:00 Test Item Value Reference Range Interpretation Comments CO2 (test code = CO2) 28 -32 [facility]2017-01-24 16:51:00 Test Item Value Reference Range Interpretation Comments Calcium Lvl (test code = Calcium Lvl) 8.4 8.5-10.5 [facility]2017-01-24 16:51:00 Test Item Value Reference Range Interpretation Comments AGAP (test code = AGAP) 11.3 10.0-20.0 [facility]2017-01-24 16:51:00 Test Item Value Reference Range Interpretation Comments Glucose Lvl (test code = Glucose Lvl) 109 70-99 [facility]2017-01-24 16:51:00 Test Item Value Reference Range Interpretation Comments eGFR (test code = eGFR) 52 [facility]2017-01-24 16:51:00 Test Item Value Reference Range Interpretation Comments Creatinine Lvl (test code = Creatinine 1.15 0.50-1.40 Lvl) [facility]2017-01-24 16:51:00 Test Item Value Reference Range Interpretation Comments BUN (test code = BUN) 16 - [facility]2017-01-24 16:51:00 Test Item Value Reference Range Interpretation Comments Chloride Lvl (test code = Chloride Lvl) 109 95-109 [facility]2017-01-24 16:51:00 Test Item Value Reference Range Interpretation Comments Potassium Lvl (test code = Potassium 4.3 3.5-5.1 Lvl) [facility]2017-01-24 16:51:00 Test Item Value Reference Range Interpretation Comments Sodium Lvl (test code = Sodium Lvl) 144 135-145 [facility]2017-01-24 16:51:00 Test Item Value Reference Range Interpretation Comments CO2 (test code = CO2) 28 - [facility]2017-01-24 16:51:00 Test Item Value Reference Range Interpretation Comments Calcium Lvl (test code = Calcium Lvl) 8.4 8.5-10.5 [facility]2017-01-24 16:51:00 Test Item Value Reference Range Interpretation Comments AGAP (test code = AGAP) 11.3 10.0-20.0 [facility]2017-01-24 16:51:00 Test Item Value Reference Range Interpretation Comments Glucose Lvl (test code = Glucose Lvl) 109 70-99 [facility]2017-01-24 16:51:00 Test Item Value Reference Range Interpretation Comments eGFR (test code = eGFR) 52 [facility]2017-01-24 16:51:00 Test Item Value Reference Range Interpretation Comments Creatinine Lvl (test code = Creatinine 1.15 0.50-1.40 Lvl) [facility]2017-01-24 16:51:00 Test Item Value Reference Range Interpretation Comments BUN (test code = BUN) 16 - [facility]2017-01-24 16:51:00 Test Item Value Reference Range Interpretation Comments Chloride Lvl (test code = Chloride Lvl) 109 95-109 [facility]2017-01-24 16:51:00 Test Item Value Reference Range Interpretation Comments Potassium Lvl (test code = Potassium 4.3 3.5-5.1 Lvl) [facility]2017-01-24 16:51:00 Test Item Value Reference Range Interpretation Comments Sodium Lvl (test code = Sodium Lvl) 144 135-145 [facility]2017-01-24 16:51:00 Test Item Value Reference Range Interpretation Comments CO2 (test code = CO2) 28 [facility]2017-01-24 16:51:00 Test Item Value Reference Range Interpretation Comments Calcium Lvl (test code = Calcium Lvl) 8.4 8.5-10.5 [facility]2017-01-24 16:51:00 Test Item Value Reference Range Interpretation Comments AGAP (test code = AGAP) 11.3 10.0-20.0 [facility]2017-01-24 16:51:00 Test Item Value Reference Range Interpretation Comments Glucose Lvl (test code = Glucose Lvl) 109 70-99 [facility]2017-01-24 16:51:00 Test Item Value Reference Range Interpretation Comments eGFR (test code = eGFR) 52 [facility]2017-01-24 16:51:00 Test Item Value Reference Range Interpretation Comments Creatinine Lvl (test code = Creatinine 1.15 0.50-1.40 Lvl) [facility]2017-01-24 16:51:00 Test Item Value Reference Range Interpretation Comments BUN (test code = BUN) 16 - [facility]2017-01-24 16:51:00 Test Item Value Reference Range Interpretation Comments Chloride Lvl (test code = Chloride Lvl) 109 95-109 [facility]2017-01-24 16:51:00 Test Item Value Reference Range Interpretation Comments Potassium Lvl (test code = Potassium 4.3 3.5-5.1 Lvl) [facility]2017-01-24 16:51:00 Test Item Value Reference Range Interpretation Comments Sodium Lvl (test code = Sodium Lvl) 144 135-145 [facility]2017-01-24 16:51:00 Test Item Value Reference Range Interpretation Comments CO2 (test code = CO2) 28 24-32 [facility]2017-01-24 16:51:00 Test Item Value Reference Range Interpretation Comments Calcium Lvl (test code = Calcium Lvl) 8.4 8.5-10.5 [facility]2017-01-24 16:51:00 Test Item Value Reference Range Interpretation Comments AGAP (test code = AGAP) 11.3 10.0-20.0 [facility]2017-01-24 16:51:00 Test Item Value Reference Range Interpretation Comments Glucose Lvl (test code = Glucose Lvl) 109 70-99 [facility]2017-01-24 16:51:00 Test Item Value Reference Range Interpretation Comments eGFR (test code = eGFR) 52 [facility]
[2022-11-04 09:17] LABS: Protime INR 1.55
[2022-11-04 09:19] LABS: Hematocrit 28.5 % (36.0-45.0); Lymphocytes % 10.9 % (15.3-44.8); MPV 8.2 fL (7.6-11.3); RBC Red Blood Cell Count 2.82 M/uL (3.86-4.86)
[2022-11-04 09:23] LABS: SARS-CoV-2 Antigen Rapid Res Negative (Negative)
--- NOTE | 2022-11-04 09:24 | RAD REPORT ---
EXAM DESCRIPTION: CT - Head Brain Wo Cont - 11/04/2022 9:15 am CLINICAL HISTORY: Mental status change, unknown cause COMPARISON: None TECHNIQUE: All CT scans are performed using dose optimization technique as appropriate and may inclu de automated exposure control or mA/KV adjustment according to patient size. FINDINGS: No intracranial hemorrhage, hydrocephalus or extra-axial fluid collection.No areas of brai n edema or evidence of midline shift. Right maxillary sinus mucous retention cyst. The calvarium is intact. IMPRESSION: No acute intracranial abnormality.
--- NOTE | 2022-11-04 10:03 | RAD REPORT ---
EXAM DESCRIPTION: RAD - Chest Single View - 11/04/2022 9:24 am CLINICAL HISTORY: COUGH COMPARISON: Chest Single View dated 10/31/2022; Chest Single View dated 10/25/2022; Chest Single View d ated 10/20/2022; Chest Single View dated 10/14/2022; Chest Abd Pelvis Wo Con dated 10/25/2022 FINDINGS: Lines: Left IJ approach dialysis catheter. Lungs: Linear opacity at the right lung base likely representing atelectasis . Low lung volumes. Sarahy lar elevated right hemidiaphragm. Pleural: No significant pleural effusions or pneumothorax. Cardiac: Similar size configuration. Mediastinum: Within normal limits. Bones: No acute fractures. Other: Loop recorder overlies heart. IMPRESSION: Linear opacities at the right lung base and elevated right hemidiaphragm likely reflecti ng atelectasis. No new acute process. .
[2022-11-04 10:15] LABS: Albumin 3.1 g/dL (3.4-5.0); Bilirubin Direct 0.4 mg/dL (0-0.2); Bilirubin Total 0.8 mg/dL (0.2-1.0); Magnesium 2.1 mg/dL (1.6-2.4); Potassium 3.9 mmol/L (3.5-5.1); Protein, Total 7.6 g/dL (6.4-8.2); Troponin High Sensitivity 25.6 pg/mL (<58.9)
[2022-11-04 10:28] LABS: Blood Morphology Comment NOT SEEN (NOT SEEN); Platelet Estimate ADEQ
--- NOTE | 2022-11-04 10:39 | EDPHYS ---
Physician Documentation [facility] Name: Kassie De Jesus Age: 67 yrs Sex: Female : 1955 Arrival Date: 11/04/2022 Time: 08:43 Bed 16 Private MD: OSCAR Physician Adrian Lin HPI: 11/04 10:15 This 67 yrs old Female presents to ER via EMS with complaints of ams, nausea trinidad and vomiting, hallucinating. 10:15 The patient presents to the emergency department with nausea, vomiting, that is trinidad intermittent. Onset: The symptoms/episode began/occurred 1 year(s) ago. Possible causes: unknown. The symptoms are aggravated by nothing. The symptoms are alleviated by nothing. The patient presents with confusion. Possible causes: CVA or TIA, drug use, head injury, low blood sugar, seizure, sepsis. Associated signs and symptoms: Pertinent positives: nausea, vomiting, weakness. Patient's baseline: Neuro: alert and fully oriented. Severity of symptoms: At their worst the symptoms were mild in the emergency department the symptoms have improved mildly. The patient has experienced similar episodes in the past, multiple times. Historical: - Allergies: 08:44 Bactrim; ll1 08:44 cefepime; ll1 08:44 Codeine; ll1 08:44 Levofloxacin; ll1 08:44 Morphine; itching; ll1 08:44 PENICILLINS; ll1 08:44 QUINOLONES; ll1 - PMHx: 08:44 Hypertensive disorder; High Cholesterol; stage 4 kidney failure; Dialysis; Congestive ll1 heart failure; Atrial fibrillation; - PSHx: 08:44 back surgery; Dialysis catheter LEFT upper chest; ll1 - Immunization history:: Adult Immunizations up to date. - Social history:: Smoking status: Patient denies any tobacco usage or history of. - Family history:: not pertinent. ROS: 10:18 Constitutional: Negative for fever, chills, and weight loss, Eyes: Negative for injury, trinidad pain, redness, and discharge, ENT: Negative for injury, pain, and discharge, Neck: Negative for injury, pain, and swelling, Cardiovascular: Negative for chest pain, palpitations, and edema, Respiratory: Negative for shortness of breath, cough, wheezing, and pleuritic chest pain, Back: Negative for injury and pain, : Negative for injury, bleeding, discharge, and swelling, MS/Extremity: Negative for injury and deformity, Skin: Negative for injury, rash, and discoloration, Allergy/Immunology: Negative for hives, rash, and allergies, Endocrine: Negative for neck swelling, polydipsia, polyuria, polyphagia, and marked weight changes, Hematologic/Lymphatic: Negative for swollen nodes, abnormal bleeding, and unusual bruising. 10:18 Abdomen/GI: Positive for nausea and vomiting. 10:18 Neuro: Positive for altered mental status, weakness. 10:18 Psych: Positive for visual hallucinations. Exam: 10:22 Constitutional: This is a well developed, well nourished patient who is awake, alert, trinidad and in no acute distress. Head/Face: Normocephalic, atraumatic. Eyes: Pupils equal round and reactive to light, extra-ocular motions intact. Lids and lashes normal. Conjunctiva and sclera are non-icteric and not injected. Cornea within normal limits. Periorbital areas with no swelling, redness, or edema. ENT: Nares patent. No nasal discharge, no septal abnormalities noted. Tympanic membranes are normal and external auditory canals are clear. Oropharynx with no redness, swelling, or masses, exudates, or evidence of obstruction, uvula midline. Mucous membranes moist. Neck: Trachea midline, no thyromegaly or masses palpated, and no cervical lymphadenopathy. Supple, full range of motion without nuchal rigidity, or vertebral point tenderness. No Meningismus. Chest/axilla: Normal chest wall appearance and motion. Nontender with no deformity. No lesions are appreciated. Cardiovascular: Regular rate and rhythm with a normal S1 and S2. No gallops, murmurs, or rubs. Normal PMI, no JVD. No pulse deficits. Respiratory: Lungs have equal breath sounds bilaterally, clear to auscultation and percussion. No rales, rhonchi or wheezes noted. No increased work of breathing, no retractions or nasal flaring. Abdomen/GI: Soft, non-tender, with normal bowel sounds. No distension or tympany. No guarding or rebound. No evidence of tenderness throughout. Back: No spinal tenderness. No costovertebral tenderness. Full range of motion. Female : Normal external genitalia. Skin: Warm, dry with normal turgor. Normal color with no rashes, no lesions, and no evidence of cellulitis. MS/ Extremity: Pulses equal, no cyanosis. Neurovascular intact. Full, normal range of motion. Neuro: Awake and alert, GCS 15, oriented to person, place, time, and situation. Cranial nerves II-XII grossly intact. Motor strength 5/5 in all extremities. Sensory grossly intact. Cerebellar exam normal. Normal gait. Psych: Awake, alert, with orientation to person, place and time. Behavior, mood, and affect are within normal limits. 10:22 ECG was reviewed by the Attending Physician. Vital Signs: 08:46 BP 106 / 86; Pulse 89; Resp 18; Temp 97.6(T); Pulse Ox 100% on R/A; Weight 104.78 kg; ko1 Height 5 ft. 7 in. (170.18 cm) (R); Pain 0/10; 09:35 BP 102 / 75; Pulse 82; Resp 16; Pulse Ox 100% on 4 lpm NC; ko1 10:17 BP 118 / 65; Pulse 88; Pulse Ox 98% on 4 lpm NC; ko1 11:00 BP 121 / 99; Pulse 93; Pulse Ox 97% ; ko1 08:46 Body Mass Index 36.18 (104.78 kg, 170.18 cm) ko1 MDM: 08:44 Patient medically screened. [facility] 10:19 Differential diagnosis: Nonspecific abd pain, gastritis, pancreatitis, viral trinidad gastroenteritis, gastroenteritis. Differential Diagnosis: CVA, electrolyte abnormality, hypoglycemia, intracranial bleed, pneumonia, seizure, TIA, volume depletion. Data reviewed: vital signs, nurses notes, lab test result(s), EKG, radiologic studies, CT scan, plain films. Consideration of Admission/Observation Patient was admitted/placed on observation. Escalation of care including admission/observation considered. Test considered but Not performed: MRI: mri not available. Care significantly affected by the following chronic conditions: Diabetes, Hypertension. 10:26 Management of patient was discussed with the following: Hospitalist: to admit, consult trinidad joseph/corrine. Historians other than the Patient: Spouse/Significant Other: . 11/04 08:48 Order name: Basic Metabolic Panel; Complete Time: 10:29 [facility] 11/04 08:48 Order name: CBC with Diff; Complete Time: : [facility] 11/04 08:48 Order name: LFT's; Complete Time: 10:29 [facility] 11/04 08:48 Order name: Magnesium; Complete Time: 10:29 [place] 11/04 08:48 Order name: NT PRO-BNP; Complete Time: 10:29 [place] 11/04 08:48 Order name: PT-INR; Complete Time: 10:08 11/04 08:48 Order name: Troponin HS; Complete Time: 10:29 11/04 08:48 Order name: Urine Microscopic Only 11/04 08:48 Order name: Lipase; Complete Time: 10:29 [facility] 11/04 08:48 Order name: SARS RAPID; Complete Time: 10:08 [facility] 11/04 10:28 Order name: Manual Differential; Complete Time: 10:29 EDDC 11/04 10:34 Order name: Blood Culture Adult (2) 11/04 15:05 Order name: Liver (Hepatic) Function EDMS 11/04 08:48 Order name: XRAY Chest (1 view); Complete Time: 10:08 [facility] 11/04 08:48 Order name: EKG; Complete Time: 08:49 [facility] 11/04 08:48 Order name: Cardiac monitoring; Complete Time: 08:59 [facility] 11/04 08:48 Order name: EKG - Nurse/Tech; Complete Time: 09:21 [facility] 11/04 08:48 Order name: IV Saline Lock; Complete Time: 09:06 [facility] 11/04 08:48 Order name: Labs collected and sent; Complete Time: 09:06 11/04 08:48 Order name: O2 Per Protocol; Complete Time: 08:59 [place] 11/04 08:48 Order name: O2 Sat Monitoring; Complete Time: 09:21 [facility] 11/04 08:48 Order name: CT Head Brain wo Cont 11/04 08:48 Order name: Urine Dipstick-Ancillary (obtain specimen); Complete Time: 14:18 [facility] 11/04 08:52 Order name: Head Brain Wo Cont; Complete Time: 10:08 [facility] 11/04 10:34 Order name: CT Abd/Pelvis - Without Contrast 11/04 11:27 Order name: CT EDMS 11/04 15:05 Order name: T4 Free EDDC 11/04 15:05 Order name: Thyroid Stimulating Hormone EDMS EC:22 Rate is 79 beats/min. Rhythm is irregularly irregular. QRS [place] is Normal. MN interval [place] is normal. QRS interval is normal. QT interval is normal. No Q waves. T waves are Normal. No ST changes noted. Clinical impression: Abnormal EKG without significant change, Atrial Fibrillation, and No evidence of ischemia. Interpreted by me. Reviewed by me. Administered Medications: 14:18 Not Given (Patient Refused): Zofran (Ondansetron) 4 mg IVP once; over 2 minutes ll1 Disposition Summary: 11/04/22 10:38 Hospitalization Ordered Hospitalization Status: Observation trin[place] Provider: Bruna Martinez cha Location: Telemetry/MedSurg (observation) trin[place] Condition: Fair [place]in[place] Problem: new [place]in[place] Symptoms: have improved [place] Bed/Room Type: Standard [place] Room Assignment: 403(11/04/22 14:52) eb Diagnosis - End stage renal disease - on HD trin[place] - Visual hallucinations [place] - Bandemia [place] - Anemia in chronic kidney disease trin[place] - UTI/ Urinary tract infection, site not specified tr[place] Forms: - Medication Reconciliation Form tr[place] - SBAR form [place] Signatures: Dispatcher [employer] EDMS Adrian Lin MD MD cha Botello, Elizabeth eb Lewis, Lynsay, RN RN ll1 Frida Valdez, ARMANDO RN ko1 Corrections: (The following items were deleted from the chart) 10:28 09:38 CBC Smear Scan ordered. EDDC EDDC 14:52 10:38 [place]in[place] roberts
--- NOTE | 2022-11-04 10:39 | ER ---
Nurse's Notes [facility] Name: Kassie De Jesus Age: 67 yrs Sex: Female : 1955 Arrival Date: 11/04/2022 Time: 08:43 Bed 16 Private MD: Diagnosis: End stage renal disease-on HD;Visual hallucinations;Bandemia;Anemia in chronic kidney disease;UTI/ Urinary tract infection, site not specified Presentation: 11/04 08:46 Chief complaint: EMS states: patient was at dialysis when she started hallucinating. ko1 She was eating food that was not there and seeing her sister who was not there. Patient said she started a new heart medication about a week ago and that is the only thing different. She is not sure of which medication it is. Coronavirus screen: At this time, the client does not indicate any symptoms associated with coronavirus-19. Ebola Screen: No symptoms or risks identified at this time. Initial Sepsis Screen: Does the patient meet any 2 criteria? No. Patient's initial sepsis screen is negative. Does the patient have a suspected source of infection? No. Patient's initial sepsis screen is negative. Risk Assessment: Do you want to hurt yourself or someone else? Patient reports no desire to harm self or others. Onset of symptoms was November 04, 2022. 08:46 Method Of Arrival: EMS: [facility] ko1 08:46 Acuity: LENI 3 ko1 Triage Assessment: 08:46 General: Appears in no apparent distress. comfortable, Behavior is calm, cooperative, ko1 appropriate for age. Pain: Denies pain. Historical: - Allergies: 08:44 Bactrim; ll1 08:44 cefepime; ll1 08:44 Codeine; ll1 08:44 Levofloxacin; ll1 08:44 Morphine; itching; ll1 08:44 PENICILLINS; ll1 08:44 QUINOLONES; ll1 - PMHx: 08:44 Hypertensive disorder; High Cholesterol; stage 4 kidney failure; Dialysis; Congestive ll1 heart failure; Atrial fibrillation; - PSHx: 08:44 back surgery; Dialysis catheter LEFT upper chest; ll1 - Immunization history:: Adult Immunizations up to date. - Social history:: Smoking status: Patient denies any tobacco usage or history of. - Family history:: not pertinent. Screenin:35 [facility] ED Fall Risk Assessment (Adult) History of falling in the last 3 months, ko1 including since admission No falls in past 3 months (0 pts) Confusion or Disorientation Yes (5 pts) Intoxicated or Sedated No (0 pts) Impaired Gait Yes (1 pt) Mobility Assist Device Used Yes (1 pt) Altered Elimination No (0 pt) Score/Fall Risk Level 3 or more points = High Risk Oriented to surroundings, Maintained a safe environment, Educated pt \T\ family on fall prevention, incl call for assistance when getting out of bed, Assessed \T\ reinforced patient's understanding of fall precautions, Provided non-skid footwear, Hourly rounding (assess needs \T\ fall precautionary measures) done, Used ambulatory aids as needed (educated on \T\ assisted with), Used gait belt as appropriate Implemented a Fall Risk Plan of Care, Apply high fall risk patient identification: yellow non skid footwear/ fall signage, Remained w/in arm's length of patient and in sight while toileting, Offered frequent toileting (1:1 observation), Remained with patient while ambulating, Utilized family, sitter, or virtual multiple wire sawyer as indicated. Abuse screen: Denies threats or abuse. Denies injuries from another. Nutritional screening: No deficits noted. Tuberculosis screening: No symptoms or risk factors identified. Assessment: 08:30 General: Appears in no apparent distress. comfortable, Behavior is calm, cooperative, ko1 appropriate for age. Pain: Denies pain. Neuro: No deficits noted. Cardiovascular: No deficits noted. Respiratory: No deficits noted. GI: No deficits noted. : Reports she is a dialysis patient and rarely makes urine anymore. EENT: No deficits noted. Derm: No deficits noted. Musculoskeletal: No deficits noted. 14:00 Reassessment: No changes from previously documented assessment. patient care assumed. ll1 See Personalis for further info. Vital Signs: 08:46 BP 106 / 86; Pulse 89; Resp 18; Temp 97.6(T); Pulse Ox 100% on R/A; Weight 104.78 kg; ko1 Height 5 ft. 7 in. (170.18 cm) (R); Pain 0/10; 09:35 BP 102 / 75; Pulse 82; Resp 16; Pulse Ox 100% on 4 lpm NC; ko1 10:17 BP 118 / 65; Pulse 88; Pulse Ox 98% on 4 lpm NC; ko1 11:00 BP 121 / 99; Pulse 93; Pulse Ox 97% ; ko1 08:46 Body Mass Index 36.18 (104.78 kg, 170.18 cm) ko1 ED Course: 08:43 Patient arrived in ED. iw 08:44 Adrian Lin MD is Attending Physician. [place] 08:44 Arm band placed on Patient placed in an exam room, on a stretcher. ll1 08:45 Frida Valdez, ARMANDO is Primary Nurse. ko1 08:49 Triage completed. ko1 09:00 Oxygen administration via nasal cannula wears 4lpm NC at home. ko1 09:06 Basic Metabolic Panel Sent. ko1 09:06 CBC with Diff Sent. ko1 09:06 LFT's Sent. ko1 09:06 Magnesium Sent. ko1 09:06 NT PRO-BNP Sent. ko1 09:06 PT-INR Sent. ko1 09:06 Troponin HS Sent. ko1 09:07 Lipase Sent. ko1 09:07 SARS RAPID Sent. ko1 09:08 Inserted saline lock: 22 gauge in right antecubital area, using aseptic technique. rs5 Blood collected. 09:16 Head Brain Wo Cont In Process Unspecified. EDMS 09:21 SARS RAPID Sent. rs5 09:21 Lipase Sent. rs5 09:21 Basic Metabolic Panel Sent. rs5 09:21 CBC with Diff Sent. rs5 09:21 LFT's Sent. rs5 09:21 Magnesium Sent. rs5 09:21 NT PRO-BNP Sent. rs5 09:21 Troponin HS Sent. rs5 09:25 XRAY Chest (1 view) In Process Unspecified. EDMS 09:35 Patient has correct armband on for positive identification. Fall risk band placed. Bed ko1 in low position. Call light in reach. Side rails up X2. Client placed on continuous cardiac and pulse oximetry monitoring. NIBP monitoring applied. site monitor on. 09:35 No provider procedures requiring assistance completed. ko1 10:34 Bruna Martinez MD is Hospitalizing Provider. [place] 11:26 Urine Microscopic Only Sent. ko1 11:39 Urine collected: straight cath specimen, cloudy, Amount Returned: 5mL. ko1 13:50 Blood Culture Adult (2) Sent. ko1 14:19 Patient admitted, IV remains in place. ll1 Administered Medications: 14:18 Not Given (Patient Refused): Zofran (Ondansetron) 4 mg IVP once; over 2 minutes ll1 Medication: 14:19 VIS not applicable for this client. ll1 Outcome: 10:38 Decision to Hospitalize by Provider. [place] 14:19 Admitted to ER Hold. Please see [facility] for further documentation. ll1 14:19 Condition: stable 14:19 Instructed on the need for admit. 16:56 Patient left the ED. ll1 Signatures: Dispatcher [employer] EDAdrian Wallace MD MD cha Williams, Irene, RN RN iw Lewis, Lynsay, RN RN ll1 Frida Valdez RN RN ko1 Gael Qiu rs5 Corrections: (The following items were deleted from the chart) 10:18 09:35 BP 102 / 75; Pulse 82bpm; Resp 16bpm; Pulse Ox 100%; ko1 ko1
--- NOTE | 2022-11-04 11:26 | RAD REPORT ---
EXAM DESCRIPTION: CTAbdomen Pelvis Wo Contrast - 11/04/2022 10:53 am CLINICAL HISTORY: Abdominal pain, acute, nonlocalized COMPARISON: Abdomen Pelvis Wo Contrast dated 08/06/2022; Stone Protocol dated 08/03/2022; Abdomen Pelvis Wo Contrast dated 07/29/2022; Abdomen Pelvis Wo Contrast dated 05/19/2022; Chest Abd Pelvis Wo Con dated 10/25/2022 TECHNIQUE: CT of the abdomen and pelvis was performed without contrast. All CT scans are performed using dose optimization technique as appropriate and may include automated exposure control or mA/KV adjustment according to patient size. FINDINGS: Lower chest: Small right pleural effusion with subjacent scarring and/or underlying atelec tasis. Cardiomegaly. Multi-vessel coronary disease dialysis catheter. Liver: Hepatomegaly with heterogeneous attenuation. Pneumobilia Biliary: Cholecystectomy Stomach: No significant focal abnormality. Duodenum: No significant focal abnormality. Pancreas: No significant abnormality. Spleen: No significant abnormality. Adrenal: No suspicious lesions. Kidney/ureter: Left-sided hydronephrosis. Renal cortical thinning. Possible new left renal mass at th e left interpolar aspect of the kidney. Right renal lesions which are likely cysts. Renal scarring. C ystic structure inferior to the right hepatic lobe and contiguous with the right kidney in the right upper quadrant is unchanged. Stone for stones in the left proximal ureter at the UPJ measuring 2.3 cm . Retroperitoneum: Prominent retroperitoneal lymph nodes. Vascular: No aneurysm. Bowel: No significant focal abnormality. Peritoneum: Trace free fluid. Body wall edema which is increased . . Bladder: Grossly unremarkable. Reproductive: No adnexal masses. Tubal ligation clips. Bones: Vertebroplasty/kyphoplasty changes at L1. Remote L2 through L5 compression fractures . Remote T11 and T2 compression fracture. Other: n/a IMPRESSION: 1. Similar left-sided hydronephrosis with multiple renal calculi at the left UPJ. 2. Possible new left renal lesion measuring 2.4 cm. It is better seen on today's CT compared with 01/2023 but is new since 08/06/2022. Consider ultrasound further evaluation.
[2022-11-04] MEDS ORDERED: ONDANSETRON 4 MG/2 ML VIAL IV PRN (12:01)
[2022-11-04] MEDS ORDERED: ACETAMINOPHEN 500 MG TAB PO PRN (12:01)
--- NOTE | 2022-11-04 12:38 | P.HP ---
Patient History Date of Service: 11/04/22 Primary Care Provider: Fco Reason for admission: AMS, N/V History of Present Illness: This is a 67-year-old female with prior medical history of hypertension, hyperlipidemia, end-stage renal disease on dialysis, CHF, and atrial fibrillation. Patient presents to the emergency room via EMS with complaints of altered mental status, nausea and vomiting, and hallucination. Patient was evaluated in the ER, with at the bedside. Per patient, she started having episodes of nausea and vomiting during her dialysis treatment today at [facility]. She reports receiving Phenergan, and that is when her macias llucinations started. Patient reports having episodes of nausea every day for over a year now. Per , patient has been having bouts of hallucination for a few days, with dry heaving. Patient states that she is compliant with her dialysis treatment. She says she was an hour into her treatment, when her symptoms started. Patient is alert and oriented x3, she follows commands, PERRLA noted, and sensations are intact. Patient will be admitted under the care of Dr. Martinez. Nephrology will be consulted for further recommendations. Allergies cefepime Allergy (Verified 10/26/21 06:30) Hives codeine Allergy (Verified 05/20/22 05:03) Itching levofloxacin Allergy (Verified 10/26/21 06:30) Hives/Rash morphine Allergy (Verified 05/20/22 05:03) Itching Penicillins Allergy (Verified 10/26/21 06:30) Hives/Rash sulfamethoxazole [From Bactrim] Allergy (Verified 05/20/22 05:03) Hives trimethoprim [From Bactrim] Allergy (Verified 05/20/22 05:03) Hives Home Medications: Apixaban [Eliquis] 2.5 mg PO BID 05/19/22 Bumetanide 1 tab PO DAILY 05/19/22 Midodrine HCl 1 tab PO TID 05/19/22 Pantoprazole [Protonix Tab*] 1 tab PO ONCE 05/19/22 Sevelamer Carbonate [Renvela] 800 mg PO TID 05/19/22 Amiodarone HCl [Cordarone*] 200 mg PO BID 90 Days #180 tab 10/20/22 Alendronate Sodium 70 mg PO 1X 10/25/22 Gabapentin 300 mg PO DAILY 10/25/22 Linaclotide [Linzess] 72 mcg PO DAILY AFTER SUPPER 90 Days #90 tab 10/26/22 Promethazine Tab [Phenergan] 25 mg PO Q6HP PRN 30 Days #90 tab 10/26/22 Hydrocortisone/Pramoxine [Analpram Hc 2.5% Cream] 30 gm RC BID 5 Days #30 gm 11/01/22 - Past Medical/Surgical History Diabetic: No -: Chronic hypotension -: Hyperlipidemia -: Chronic anticoagulation use -: History of nephrolithiasis requiring stent placement -: Recurrent UTI -: End-stage renal disease -: CHF -: HTN -: A-Fib -: tubal ligation -: dialysis port -: cholecystectomy -: right broken wrist -: lasik -: cataracts removed -: back surgery - Family History Sister -: Cancer Notes: per pt, sister has lung cancer and is being treated for a "spot on her brain" - Social History Smoking Status: Never smoker Alcohol use: No CD- Drugs: No Caffeine use: Yes Review of Systems 10-point ROS is otherwise unremarkable Respiratory: SOB with Excertion Gastrointestinal: Nausea, Vomiting, Abdominal Pain Genitourinary: Other (on HD) Musculoskeletal: Pedal edema Neurological: Confusion Physical Examination - Vital Signs Temperature: 97.6 F Blood Pressure: 125/92 Pulse: 77 Respirations: 17 Pulse Ox (%): 96 - Physical Exam General: Alert, In no apparent distress, Oriented x3 HEENT: Atraumatic, Normocephalic, PERRLA Neck: Supple Respiratory: Crackles/rales Cardiovascular: Edema Capillary refill: <2 Seconds Gastrointestinal: Normal bowel sounds Musculoskeletal: Swelling Integumentary: Rash(es) Neurological: Normal speech, Normal tone, Sensation intact Lymphatics: No axilla or inguinal lymphadenopathy - Studies Laboratory Data (last 24 hrs) 11/04/22 09:00: PT 17.1 H, INR 1.55 11/04/22 09:00: WBC 9.10, Hgb 8.6 L, Hct 28.5 L, Plt Count 120 L 11/04/22 09:00: Sodium 138, Potassium 3.9, BUN 42 H, Creatinine 5.87 H*, Glucose 133 H, Magnesium 2.1, Total Bilirubin 0.8, AST 13 L, ALT 14, Alkaline Phosphatase 160 H, Lipase 277 Assessment and Plan - Plan Assessment AMS with hallucination End-stage renal disease on dialysis Atrial fibrillation Hyperlipidemia Acute on chronic diastolic CHF Abdominal pain with nausea vomiting Plan AMS with hallucination Back to baseline Urine culture pending Possibly related to Phenergan use CT head/brain- No acute intracranial abnormality End-stage renal disease on dialysis Creatinine of 5.87, BUN 42 Treatment on Sunday Left chest HD catheter present Tolerated 1 hour today Nephrology consulted, recommendations appreciated Atrial fibrillation Rate control Continue home medications Hyperlipidemia Continue statin Acute on chronic diastolic CHF BNP 47, 234 Continue Bumex Strict I/Os Daily weight ECHO 06/17/22 NORMAL LEFT VENTRICULAR EJECTION FRACTION 55-60%. NORMAL RIGHT SIZE AND FUNCTION. MODERATE MITRAL REGURGITATION. MODERATE TRICUSPID REGURGITATION. CXR- Linear opacities at the right lung base and elevated right hemidiaphragm likely reflecting atelectasis. No new acute process Abdominal pain with nausea vomiting Stable CT abdomen/pelvis 1. Similar left-sided hydronephrosis with multiple renal calculi at the left UPJ 2. Possible new left renal lesion measuring 2.4 cm. It is better seen on today's CT compared with 10/25/2022 but is new since 08/06/2022. Consider ultrasound further evaluation Continue Zofran Do not give Phenergan PPX- Eliquis Code Status: Full code Discharge Plan: Home Plan to discharge in: 48 Hours - Advance Directives Does patient have a Living Will: No Does patient have a Durable POA for Healthcare: No - Code Status/Comfort Care Code Status Assessed: Yes (Full code) Critical Care: No Time Spent Managing Pts Care (In Minutes): 50
[2022-11-04 14:13] VITALS: O2SAT 97; BMI 35.9
[2022-11-04 14:57] LABS: Albumin 3.3 g/dL (3.4-5.0); Bilirubin Direct 0.4 mg/dL (0-0.2); Bilirubin Total 0.8 mg/dL (0.2-1.0); Protein, Total 7.7 g/dL (6.4-8.2)
[2022-11-04 15:05] LABS: Thyroid Stimulating Hormone 4.63 uIU/mL (0.358-3.740)
[2022-11-04] MEDS ORDERED: ATORVASTATIN 40 MG TAB PO SCH (21:00)
[2022-11-04] MEDS: AMIODARONE HCL 200 MG TAB PO SCH (21:07)
[2022-11-04] MEDS: APIXABAN 2.5 MG TABLET PO SCH (21:07)
[2022-11-05 03:48] LABS: Absolute Lymphocytes (CBC) 0.9 K/uL (0.7-4.9); MCV 99.3 fL (80-100); RBC Red Blood Cell Count 2.82 M/uL (3.86-4.86)
[2022-11-05 04:27] LABS: Magnesium 2.3 mg/dL (1.6-2.4); Phosphorus 6.3 mg/dL (2.5-4.9); Potassium 4.6 mmol/L (3.5-5.1)
[2022-11-05] MEDS: AMIODARONE HCL 200 MG TAB PO SCH (08:28)
[2022-11-05] MEDS: APIXABAN 2.5 MG TABLET PO SCH (08:28)
[2022-11-05] MEDS ORDERED: BUMETANIDE 1 MG TABLET PO SCH (09:00)
[2022-11-05 12:15] VITALS: BP 133/77; TEMP 98.6
[2022-11-05] MEDS ORDERED: FUROSEMIDE 40 MG/4 ML VIAL IV ONE (12:19)
--- NOTE | 2022-11-05 13:40 | P.CNS ---
Date of Consult: 11/05/22 Reason for Consult: ESRD, fluid managment Primary Care Provider: Fco Chief Complaint: AMS, N/V History of Present Illness: 66F w/ PMHx of ESRD on HD TTS, chronic diastolic heart failure, afib, anemia, & renal osteodystrophy, Pt using Oxygen at home pt was sent from HD unit for AMS Pt with HX of chronic nausea and vomiting, she was taking Phenergan, pt noticed to be altered at HD unit yesterday, HD quit after 1hrs and pt sent to ER , pt now is AAOX3 ROS General : weakness, HEENT: denied dizziness or bl;urry vision Resp: SOB, denied cough or wheezes Cardiovascular: denied chest pain, palpitation GI: denies abdominal pain, diarrhea or constipation : denies dysuria, urgency, foamy urine or blood tinged urine Musculoskeletal: denies muscle aches, joint pain Endo: denies polyuria and and polydipsia Extre: denies pain numbness and swelling Physical exam General: AAOx3, NAD, obese HEENT PERRLA, moist mucose membrane neck: supple, no elevated JVD CHEST; diminished air entry B/l HEART : RRR. Normal S1,2 no murmur or rub Abd: soft, Nt Ext: edema , chronic venous stasis Skin : No rash A/P #End-stage renal disease on outpt HD TTS. pt sc heduled for HD tomorrow and Sunday renal diet renal dose medications #AMS likely due to Phenergan now AAOX3 #Anemia of Chronic kidney disease. resume epogen as an OP # afib. rate controlled now # Intradialytic hypotension. on midodrine. time spend exam the patient face to face , discussing with patient , reviewing la and radiology date, placing order , discussing the case with staff and with other team and hospitalist 45 min. Allergies cefepime Allergy (Verified 10/26/21 06:30) Hives codeine Allergy (Verified 05/20/22 05:03) Itching levofloxacin Allergy (Verified 10/26/21 06:30) Hives/Rash morphine Allergy (Verified 05/20/22 05:03) Itching Penicillins Allergy (Verified 10/26/21 06:30) Hives/Rash sulfamethoxazole [From Bactrim] Allergy (Verified 05/20/22 05:03) Hives trimethoprim [From Bactrim] Allergy (Verified 05/20/22 05:03) Hives Home Medications: Apixaban [Eliquis] 2.5 mg PO BID 05/19/22 Bumetanide 2 tab PO DAILY 05/19/22 Midodrine HCl 5 mg PO TID 05/19/22 Pantoprazole [Protonix Tab*] 1 tab PO DAILY 05/19/22 Sevelamer Carbonate [Renvela] 800 mg PO TID 05/19/22 Amiodarone HCl [Cordarone*] 200 mg PO BID 90 Days #180 tab 10/20/22 Alendronate Sodium 70 mg PO MO 10/25/22 Gabapentin 300 mg PO BEDTIME 10/25/22 Promethazine Tab [Phenergan*] 25 mg PO Q6HP PRN 30 Days #90 tab 10/26/22 Bimatoprost [Lumigan Opthalmic Drops*] 1 drop EACH EYE BEDTIME 11/05/22 Brimonidine Tartrate [Alphagan P] 1 drop EACH EYE BID 11/05/22 Metoprolol Tartrate [Lopressor*] 12.5 mg PO BID 11/05/22 Minocycline HCl [Minocin] 1 tab PO BID 11/05/22 - Past Medical/Surgical History Diabetic: No -: Chronic hypotension -: Hyperlipidemia -: Chronic anticoagulation use -: History of nephrolithiasis requiring stent placement -: Recurrent UTI -: End-stage renal disease -: CHF -: HTN -: A-Fib -: tubal ligation -: dialysis port -: cholecystectomy -: right broken wrist -: lasik -: cataracts removed -: back surgery - Family History Sister Medical History: Cancer Notes: per pt, sister has lung cancer and is being treated for a "spot on her brain" - Social History Alcohol use: No CD- Drugs: No Caffeine use: Yes Physical Examination Temp Pulse Resp BP Pulse Ox 98.6 F 109 H 20 133/77 95 11/05/22 12:00 11/05/22 12:00 11/05/22 12:00 11/05/22 12:00 11/05/22 12:00
--- NOTE | 2022-11-06 17:38 | EKG ---
Test Date: 2022-11-04 Test Time: 09:29:07 Proposal Engineer: Vern White MEASUREMENT RESULTS: Intervals: Rate: 79 NV: QRSD: 94 QT: 390 QTc: 447 [place]: P: NV: QRS: 101 T: -48 INTERPRETIVE STATEMENTS: Atrial fibrillation Rightward axis Low voltage QRS Incomplete right bundle branch block Nonspecific T wave abnormality Abnormal ECG Compared to ECG 10/31/2022 14:49:30 Low QRS voltage now present T-wave abnormality now present ST (T wave) deviation no longer present Electronically Signed On 11-06-22 17:33:31 INJECTION MOLDING SUPERVISOR by Quentin Chamberlain
== END 2022-11-05 13:35 | disposition home or self-care (01) ==
LOC: ER 08:40 → ERHOLD 10:44 → 4TH 15:45
PROVIDERS: ADMIT Hospitalist; ATTEND Hospitalist
DX: R41.82 Altered mental status, unspecified (principal); R44.3 Hallucinations, unspecified; N18.6 End stage renal disease; D63.1 Anemia in chronic kidney disease; N25.0 Renal osteodystrophy; N28.9 Disorder of kidney and ureter, unspecified; I95.3 Hypotension of hemodialysis; I34.0 Nonrheumatic mitral (valve) insufficiency; I07.1 Rheumatic tricuspid insufficiency; I10 Essential (primary) hypertension; E78.5 Hyperlipidemia, unspecified; I48.91 Unspecified atrial fibrillation; I50.33 Acute on chronic diastolic (congestive) heart failure; R10.9 Unspecified abdominal pain; R11.2 Nausea with vomiting, unspecified; N13.2 Hydronephrosis with renal and ureteral calculous obstruction; D64.9 Anemia, unspecified; Z99.81 Dependence on supplemental oxygen; Z99.2 Dependence on renal dialysis; Z88.6 Allergy status to analgesic agent; Z88.0 Allergy status to penicillin; Z88.2 Allergy status to sulfonamides; Z88.8 Allergy status to other drugs, medicaments and biological substances
CPT/HCPCS: 87040 ×2; 87088; 85025 ×2; 87086; 80048 ×2; 36415 ×2; 83735 ×2; 87205; 84100; 85610; 80061; 80076 ×2; 85730; 84443; 84484; 84439; 83690; 83880; 70450; 74176; 71045; 99285; 87811; J1940; 93005; G0378

== ENCOUNTER 2022-11-10 18:23 | Inpatient (IN) | payer OTHER, BC ==
--- OUTSIDE RECORDS SUMMARY | 2022-11-10 18:55 | XMS REPORT | Continuity of Care Document ---
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 Velphoro 2022-0 Yes 500 mg, Memori a 6-29 CHEW, l 20:13: Daily, [place] 00 take with food, 0 Refill(s) Velphoro 2022-0 Yes 500 mg, Memori a 6-29 CHEW, l 20:13: Daily, [place] 00 take with food, 0 Refill(s) Velphoro 2022-0 Yes 500 mg, Memori a 6-29 CHEW, l 20:13: Daily, [place] 00 take with food, 0 Refill(s) Velphoro 2022-0 Yes 500 mg, Memori a 6-29 CHEW, l 20:13: Daily, [place] 00 take with food, 0 Refill(s) Velphoro 2022-0 Yes 500 mg, Memori a 6-29 CHEW, l 20:13: Daily, [place] 00 take with food, 0 Refill(s) Velphoro 2022-0 Yes 500 mg, Memori a 6-29 CHEW, l 20:13: Daily, [place] 00 take with food, 0 Refill(s) Velphoro 2022-0 Yes 500 mg, Memori a 6-29 CHEW, l 20:13: Daily, [place] 00 take with food, 0 Refill(s) Velphoro 2022-0 Yes 500 mg, Memori a 6-29 CHEW, l 20:13: Daily, [place] 00 take with food, 0 Refill(s) Velphoro 2022-0 Yes 500 mg, Memori a 6-29 CHEW, l 20:13: Daily, [place] 00 take with food, 0 Refill(s) Velphoro 2022-0 Yes 500 mg, Memori a 6-29 CHEW, l 20:13: Daily, [place] 00 take with food, 0 Refill(s) sevelamer 2022-0 Yes 2,400 mg = Me moria carbonate 6-29 3 tab, PO, l 800 mg oral 20:12: TID-Meals, [place] tablet 00 # 270 tab, 0 Refill(s) sevelamer 2021-0 Yes 2,400 mg = Me moria carbonate 6-29 3 tab, PO, l 800 mg oral 20:12: TID-Meals, [place] tablet 00 # 270 tab, 0 Refill(s) sevelamer 2021-0 Yes 2,400 mg = Me moria carbonate 6-29 3 tab, PO, l 800 mg oral 20:12: TID-Meals, [place] tablet 00 # 270 tab, 0 Refill(s) sevelamer 0 Yes 2,400 mg = Me moria carbonate 6-29 3 tab, PO, l 800 mg oral 20:12: TID-Meals, [place] tablet 00 # 270 tab, 0 Refill(s) sevelamer 0 Yes 2,400 mg = Me moria carbonate 6-29 3 tab, PO, l 800 mg oral 20:12: TID-Meals, [place] tablet 00 # 270 tab, 0 Refill(s) sevelamer 0 Yes 2,400 mg = Me moria carbonate 6-29 3 tab, PO, l 800 mg oral 20:12: TID-Meals, [place] tablet 00 # 270 tab, 0 Refill(s) sevelamer 0 Yes 2,400 mg = Me moria carbonate [...] tab, PO, l oral 20:11: Daily, 0 [place] enteric 00 Refill(s) coated tablet pantoprazol 2022-0 Yes 40 mg = 1 M emoria e 40 mg 6-29 tab, PO, l oral 20:11: Daily, 0 [place] enteric 00 Refill(s) coated tablet pantoprazol 2022-0 Yes 40 mg = 1 M emoria e 40 mg 6-29 tab, PO, l oral 20:11: Daily, 0 [place] enteric 00 Refill(s) coated tablet pantoprazol 2022-0 [...] tab, PO, l oral 20:11: Daily, 0 [place] [facility]ic 00 Refill(s) coated tablet oxyCODONE 5 2-0 Yes 5 mg = 1 Me moria mg oral 6-29 tab, PO, l tablet, 20:10: Q4H, PRN Vicente n immediate 00 Pain, prn, release 0 Refill(s) oxyCODONE 0 Yes 5 mg = 1 Me moria mg oral 6-29 tab, PO, l tablet, 20:10: Q4H, PRN [place] n immediate 00 Pain, prn, release 0 Refill(s) oxyCODONE 5 0 Yes 5 mg = 1 Me moria mg oral 6-29 tab, PO, l tablet, 20:10: Q4H, PRN [place] immediate 00 Pain, prn, release 0 Refill(s) oxyCODONE 0 Yes 5 mg = 1 Me moria mg oral 6-29 tab, PO, l tablet, 20:10: Q4H, PRN [place] immediate 00 Pain, prn, release 0 Refill(s) oxyCODONE 0 Yes 5 mg = 1 Me moria mg oral 6-29 tab, PO, l tablet, 20:10: Q4H, PRN [place] immediate 00 Pain, prn, release 0 Refill(s) oxyCODONE 0 Yes 5 mg = 1 Me moria mg oral 6-29 tab, PO, l tablet, 20:10: Q4H, PRN [place] immediate 00 Pain, prn, release 0 Refill(s) oxyCODONE 0 Yes 5 mg = 1 Me moria mg oral 6-29 tab, PO, l tablet, 20:10: Q4H, PRN [place] immediate 00 Pain, prn, release 0 Refill(s) oxyCODONE 5 0 Yes 5 mg = 1 Me moria mg oral 6-29 tab, PO, l tablet, 20:10: Q4H, PRN [place] immediate 00 Pain, prn, release 0 Refill(s) oxyCODONE 0 Yes 5 mg = 1 Me [...] PO, l mg oral 20:07: BID, 0 [place] tablet 00 Refill(s) metoprolol 2021-0 Yes 25 mg = 1 Me moria tartrate 25 6-29 tab, PO, l mg oral 20:07: BID, 0 [place] tablet 00 Refill(s) metoprolol 2021-0 Yes 25 mg = 1 Me moria tartrate 25 6-29 tab, PO, l mg oral 20:07: BID, 0 [place] tablet 00 Refill(s) metoprolol 2021-0 Yes 25 mg = 1 Me moria tartrate 25 6-29 tab, PO, l mg oral 20:07: BID, 0 [place] tablet 00 Refill(s) metoprolol 2021-0 Yes 25 mg = 1 Me moria tartrate 25 6-29 tab, PO, l mg oral 20:07: BID, 0 [place] tablet 00 Refill(s) metoprolol 2021-0 Yes 25 mg = 1 Me moria tartrate 25 6-29 tab, PO, l mg oral 20:07: BID, 0 [place] tablet 00 Refill(s) metoprolol 2021-0 Yes 25 [...] PO, l mg oral 20:07: BID, 0 [place] tablet 00 Refill(s) methocarbam 2-0 Yes 250 mg = Me moria ol 500 mg 6-29 0.5 tab, l oral tablet 20:05: PO, TID, 0 [place] 00 Refill(s) methocarbam 2-0 Yes 250 mg = Me moria ol 500 mg 6-29 0.5 tab, l oral tablet 20:05: PO, TID, 0 [place] 00 Refill(s) methocarbam 2-0 Yes 250 mg [...] l oral tablet 20:05: PO, TID, 0 [place] 00 Refill(s) methocarbam 2-0 Yes 250 mg = Me moria ol 500 mg 6-29 0.5 tab, l oral tablet 20:05: PO, TID, 0 [place] 00 Refill(s) methocarbam 2-0 Yes 250 mg = Me moria ol 500 mg 6-29 0.5 tab, l oral tablet 20:05: PO, TID, 0 [place] 00 Refill(s) methocarbam 2-0 Yes 250 mg = Me moria ol 500 mg 6-29 0.5 tab, l oral tablet 20:05: PO, TID, 0 [place] 00 Refill(s) methocarbam 2-0 Yes 250 mg = Me moria ol 500 mg 6-29 0.5 tab, l oral tablet 20:05: PO, TID, 0 [place] 00 Refill(s) Alphagan P 2-0 Yes 1 drp, Memor ia 0.1% 6-29 OPTH, Q12H l ophthalmic 20:04: [place] solution 00 folic acid 2021-0 Yes 1 mg, PO, Me moria 6-29 Daily, 0 l 20:04: Refill(s) [place] 00 Alphagan P 2021-0 Yes 1 drp, Memor ia 0.1% 6-29 OPTH, Q12H l ophthalmic 20:04: [place] solution 00 folic acid 2021-0 Yes 1 mg, PO, Me moria 6-29 Daily, 0 l 20:04: Refill(s) [place] 00 Alphagan P 2021-0 Yes 1 drp, Memor ia 0.1% -29 OPTH, Q12H l ophthalmic 20:04: [place] solution 00 folic acid 2021-0 Yes 1 mg, PO, Me moria 6-29 Daily, 0 l 20:04: Refill(s) [place] 00 Alphagan P 2021-0 Yes 1 drp, Memor ia 0.1% 6-29 OPTH, Q12H l ophthalmic 20:04: [place] solution 00 folic acid 2021-0 Yes 1 mg, PO, Me moria 6-29 Daily, 0 l 20:04: Refill(s) [place] 00 Alphagan P 2021-0 Yes 1 drp, Memor ia 0.1% - OPTH, Q12H l ophthalmic 20:04: [place] solution 00 folic acid 2021-0 Yes 1 mg, PO, Me moria 6-29 Daily, 0 l 20:04: Refill(s) [place] 00 Alphagan P 2021-0 Yes 1 drp, Memor ia 0.1% - OPTH, Q12H l ophthalmic 20:04: [place] solution 00 folic acid 2021-0 Yes 1 [...] moria 6-29 Daily, 0 l 20:04: Refill(s) [place] 00 Alphagan P 2021-0 Yes 1 drp, Memor ia 0.1% - OPTH, Q12H l ophthalmic 20:04: [place] solution 00 folic acid 2021-0 Yes 1 mg, PO, Me moria 6- Daily, 0 l 20:04: Refill(s) [place] 00 Alphagan P 2021-0 Yes 1 drp, Memor ia 0.1% 04-19 OPTH, Q12H l ophthalmic 20:04: [place] solution 00 folic acid 2021-0 Yes 1 mg, PO, Me moria 6- Daily, 0 l 20:04: Refill(s) [place] 00 Oxygen 2021-0 Yes 1 btl, Memoria 6-29 MISC, l 20:03: Daily, 2 [place] 00 liters, 0 Refill(s) Oxygen 2021-0 Yes 1 btl, Memoria 6-29 MISC, l 20:03: Daily, 2 [place] 00 liters, 0 Refill(s) Oxygen 2021-0 Yes 1 btl, Memoria 6-29 MISC, l 20:03: Daily, 2 [place] 00 liters, 0 Refill(s) Oxygen 2021-0 Yes 1 btl, Memoria 6-29 MISC, l 20:03: Daily, 2 [place] 00 liters, 0 Refill(s) Oxygen 2021-0 Yes 1 btl, Memoria 6-29 MISC, l 20:03: Daily, 2 [place] 00 liters, 0 Refill(s) Oxygen 2021-0 Yes 1 btl, Memoria 6-29 MISC, l 20:03: Daily, 2 [place] 00 liters, 0 Refill(s) Oxygen 2021-0 Yes 1 btl, Memoria 6-29 MISC, l 20:03: Daily, 2 [place] 00 liters, 0 Refill(s) Oxygen 2021-0 Yes 1 btl, Memoria 6-29 MISC, l 20:03: Daily, 2 [place] 00 liters, 0 Refill(s) Oxygen 2021-0 Yes 1 btl, Memoria 6-29 MISC, l 20:03: Daily, 2 [place] 00 liters, 0 Refill(s) Oxygen 2021-0 Yes 1 btl, Memoria 6-29 MISC, l 20:03: Daily, 2 [place] 00 liters, 0 Refill(s) Eliquis 2.5 0 Yes 2.5 mg, Mem oria mg oral 6-29 PO, Q12H, l tablet 20:02: tab, 0 [place] 00 Refill(s) Eliquis 2.5 0 Yes 2.5 mg, Mem oria mg oral 6-29 PO, Q12H, l tablet 20:02: tab, 0 [place] 00 Refill(s) Eliquis 2.5 0 Yes 2.5 mg, Mem oria mg oral 6-29 PO, Q12H, l tablet 20:02: tab, 0 [place] 00 Refill(s) Eliquis 2.5 0 Yes 2.5 mg, Mem oria mg oral 6-29 PO, Q12H, l tablet 20:02: tab, 0 [place] 00 Refill(s) Eliquis 2.5 0 Yes 2.5 [...] PO, Q12H, l tablet 20:02: tab, 0 [place] 00 Refill(s) Eliquis 2.5 0 Yes 2.5 mg, Mem oria mg oral 6-29 PO, Q12H, l tablet 20:02: tab, 0 [place] 00 Refill(s) Eliquis 2.5 2022-0 Yes 2.5 mg, Mem oria mg oral 6-29 PO, Q12H, l tablet 20:02: tab, 0 [place] 00 Refill(s) doxycycline 2021- No 200mg Q.5D Take 200 [facility] (VIBRAMYCIN 6-26 06-[address] ) 100 MG 13:07: 00:00 mouth 2 [facility]pi ta capsule 01 :00 (two) l times a day. Take 200mg (x2 100mg capsules). Per patient started taking March 29, 2022 glucosam/ch 2021- No 1{tbl} Q.5D Take 1 M ethodi on-msm1/C/m 04-16-[address] [facility]/bosw 13:07: 00:00 mouth 2 Hospi ta (OSTEO [...] patient started taking March 29, 2022 glucosam/ch 0 2021- No 1{tbl} Q.5D Take 1 M ethodi on-msm1/C/m 04-16-25 tablet by [facility]/bos 13:07: 00:00 mouth 2 Hospi ta (OSTEO [...] for 30 days. methocarbam 2021- No 250mg Q.[id number] Take 0.5 [facility] 04-15- [id number] tablets st (ROBAXIN) 00:00: 04:59 3D (250 [...] times a day for 7 days. methocarbam 202-0 2022- No 250mg Q.[id number] Take 0.5 [facility] 04-[id number] (ROBAXIN) 00:00: 04:59 3D (250 mg Hosp naye 500 MG 00 :00 total) by l tablet mouth 3 (three) times a day for 7 days. nitazoxanid 2022-0 2022- No 500mg Q.5D Take 1 Me thodi e (ALINIA) 04-[address] 500 MG 00:00: 04:59 (500 mg Hospita tablet 00 :00 total) by l mouth 2 (two) times a day for 7 days. methocarbam 2021-0 202- No 250mg Q.[id number] Take 0.5 [facility] 04-[id number] (ROBAXIN) 00:00: 04:59 3D (250 mg Hosp naye 500 MG 00 :00 total) by l tablet mouth 3 (three) times a day for 7 days. nitazoxanid 2021-0 202- No 500mg Q.5D Take 1 Me thodi e (ALINIA) 04-[address] 500 MG 00:00: 04:59 (500 mg Hospita tablet 00 :00 total) by l mouth 2 (two) times a day for 7 days. oxyCODONE 2021-0 2021- No [id number] 5mg Q4H Take 1 Meth aiden (ROXICODONE 6-25 -01 tablet (5 st ) 5 MG 00:00: 04:59 mg total) Hospi ta immediate 00 :00 by mouth l release every 4 tablet (four) hours as needed for severe pain for up to 20 doses .acute pain. Max Daily Amount: 30 mg oxyCODONE 2022-0 2022- No [id number] 5mg Q4H Take 1 Meth aiden (ROXICODONE 6-25 07-01 tablet (5 st ) 5 MG 00:00: 04:59 mg total) Hospi ta immediate 00 :00 by mouth l release every 4 tablet (four) hours as needed for severe pain for up to 20 doses .acute pain. Max Daily Amount: 30 mg oxyCODONE 2022-0 2022- No [id number] 5mg Q4H Take 1 Meth aiden (ROXICODONE [...] 5-16 tab, PO, l tablet 18:09: Bedtime, [place] 00 PRN NEEDED FOR MUSCLE SPASM, # 15 tab, 0 Refill(s), Pharmacy: [facility] #[id number], 165.1, cm, 10/17/21 15:23:00 DISTRIBUTION ESTIMATOR, Height, 107.301, kg, 10/17/21 15:23:00 DISTRIBUTION ESTIMATOR, Weight tizanidine 2022-0 Yes 4 mg = 1 Mem oria 4 mg oral 5-16 tab, PO, l tablet 18:09: Bedtime, [place] 00 PRN NEEDED FOR MUSCLE SPASM, # 15 tab, 0 Refill(s), Pharmacy: [facility] #[id number], 165.1, cm, 10/17/21 15:23:00 DISTRIBUTION ESTIMATOR, Height, 107.301, kg, 10/17/21 15:23:00 DISTRIBUTION ESTIMATOR, Weight tizanidine 2-0 Yes 4 mg = 1 Mem oria 4 mg oral 5-16 tab, PO, l tablet 18:09: Bedtime, [place] 00 PRN NEEDED FOR MUSCLE SPASM, # 15 tab, 0 Refill(s), Pharmacy: [facility] #[id number], 165.1, cm, 10/17/21 15:23:00 DISTRIBUTION ESTIMATOR, Height, 107.301, kg, 10/17/21 15:23:00 DISTRIBUTION ESTIMATOR, Weight tizanidine 2022-0 Yes 4 mg = 1 [facility] 4 mg oral 5-16 tab, PO, l tablet 18:09: Bedtime, [place] 00 PRN NEEDED FOR MUSCLE SPASM, # 15 tab, 0 Refill(s), Pharmacy: [facility] #[id number], 165.1, cm, 10/17/21 15:23:00 DISTRIBUTION ESTIMATOR, Height, 107.301, kg, 10/17/21 15:23:00 DISTRIBUTION ESTIMATOR, Weight tizanidine 2022-0 Yes 4 mg = 1 [facility] o[facility] 4 mg oral 5-16 tab, PO, l tablet 18:09: Bedtime, [place] 00 PRN NEEDED FOR MUSCLE SPASM, # 15 tab, 0 Refill(s), [id number], 165.1, cm, 10/17/21 15:23:00 DISTRIBUTION ESTIMATOR, Height, 107.301, kg, 10/17/21 15:23:00 DISTRIBUTION ESTIMATOR, Weight tizanidine 2022-0 Yes 4 mg = 1 [facility] o[facility] 4 mg oral 5-16 tab, PO, l tablet 18:09: Bedtime, [place] 00 PRN NEEDED FOR MUSCLE SPASM, # 15 tab, 0 Refill(s), Pharmacy: [facility] #[id number], 165.1, cm, 10/17/21 15:23:00 DISTRIBUTION ESTIMATOR, Height, 107.301, kg, 10/17/21 15:23:00 DISTRIBUTION ESTIMATOR, Weight tizanidine 2022-0 Yes 4 mg = 1 [facility] 4 mg oral 5-16 tab, PO, l tablet 18:09: Bedtime, [place] 00 PRN NEEDED FOR MUSCLE SPASM, # 15 tab, 0 Refill(s), Pharmacy: [facility] #[id number], 165.1, cm, 10/17/21 15:23:00 DISTRIBUTION ESTIMATOR, Height, 107.301, kg, 10/17/21 15:23:00 DISTRIBUTION ESTIMATOR, Weight tizanidine 2022-0 Yes 4 mg = 1 [facility] o[facility] 4 mg oral 5-16 tab, PO, l tablet 18:09: Bedtime, [place] 00 PRN NEEDED FOR MUSCLE SPASM, # 15 tab, 0 Refill(s), Pharmacy: [facility] #[id number], 165.1, cm, 10/17/21 15:23:00 DISTRIBUTION ESTIMATOR, Height, 107.301, kg, 10/17/21 15:23:00 DISTRIBUTION ESTIMATOR, Weight tizanidine 2022-0 Yes 4 mg = 1 [facility] 4 mg oral 5-16 tab, PO, l tablet 18:09: Bedtime, [place] 00 PRN NEEDED FOR MUSCLE SPASM, # 15 tab, 0 Refill(s), Pharmacy: [facility] #[id number], 165.1, cm, 10/17/21 15:23:00 DISTRIBUTION ESTIMATOR, Height, 107.301, kg, 10/17/21 15:23:00 DISTRIBUTION ESTIMATOR, Weight tizanidine Yes 4 mg = 1 [facility] 4 mg oral 5-16 tab, PO, l tablet 18:09: Bedtime, [place] 00 PRN NEEDED FOR MUSCLE SPASM, # 15 tab, 0 Refill(s), Pharmacy: [facility] #[id number], 165.1, cm, 10/17/21 15:23:00 DISTRIBUTION ESTIMATOR, Height, 107.301, kg, 10/17/21 15:23:00 DISTRIBUTION ESTIMATOR, Weight nitrofurant 2021- No 100mg Q.5D Take [...] a capsule day for 3 days. lidocaine 2021-2021- No 1{patch Q24H Place 1 M ethodi (LIDODERM) 12-28 } patch on st 5 % 00:00: 04:59 the skin Hospita 00 :00 in the l morning for 30 days. Remove & Discard patch within 12 hours or as directed by . lidocaine 2021- No 1{patch Q24H Place 1 [...] as directed by MD. traMADoL 28 50mg Q.[id number] Take 1 [facility] (ULTRAM) 50 12-28 [id number] tablet (50 st mg tablet 00:00: 04:59 3D mg total) [facility]ita 00 :00 by mouth l as needed in the morning and 1 tablet (50 mg total) as needed at noon and 1 tablet (50 mg total) as needed in the evening for moderate pain. Do all this for up to 10 days.acute pain. traMADoL 28 50mg Q.[id number] Take 1 [facility] (ULTRAM) 50 12-28- [id number] tablet (50 st mg tablet 00:00: 04:59 3D mg total) [facility] 00 :00 by mouth l as needed in the morning and 1 tablet (50 mg total) as needed at noon and 1 tablet (50 mg total) as needed in the evening for moderate pain. Do all this for up to 10 days.acute pain. traMADoL 28 50mg Q.[id number] Take 1 [facility] (ULTRAM) 50 12-28-20 [id number] tablet (50 st mg tablet 00:00: 04:59 [...] day, # 10 tab, 0 Refill(s), Pharmacy: [facility] #[id number], 165.1, cm, 10/17/21 15:23:00 DISTRIBUTION ESTIMATOR, Height, 107.301, kg, 10/17/21 15:23:00 DISTRIBUTION ESTIMATOR, Weight Ondansetron 2022-0 Yes 4 mg = 1 Me moria 4 MG Oral 1-07 tab, PO, l Tablet 22:01: BID, X 5 [place] [Zofran] day, # 10 tab, 0 Refill(s), [facility][id number], 165.1, cm, 10/17/21 15:23:00 DISTRIBUTION ESTIMATOR, Height, 107.301, kg, 10/17/21 15:23:00 DISTRIBUTION ESTIMATOR, Weight Ondansetron 2022-0 Yes 4 mg = 1 Me moria 4 MG Oral 1-07 tab, PO, l Tablet 22:01: BID, X 5 [place] [Zofran] day, # 10 tab, 0 Refill(s), [facility][id number], 165.1, cm, 10/17/21 15:23:00 DISTRIBUTION ESTIMATOR, Height, 107.301, kg, 10/17/21 15:23:00 DISTRIBUTION ESTIMATOR, Weight Ondansetron 2022-0 Yes 4 mg = 1 Me moria 4 MG Oral 1-07 tab, PO, l Tablet 22:01: BID, X 5 [place] [Zofran] day, # 10 tab, 0 Refill(s), Pharmacy: [facility] #[id number], 165.1, cm, 10/17/21 15:23:00 DISTRIBUTION ESTIMATOR, Height, 107.301, kg, 10/17/21 15:23:00 DISTRIBUTION ESTIMATOR, Weight Ondansetron 2022-0 Yes 4 mg = 1 Me moria 4 MG Oral 1-07 tab, PO, l Tablet 22:01: BID, X 5 [place] [Zofran] 00 day, # 10 tab, 0 Refill(s), Pharmacy: [facility] #[id number], 165.1, cm, 10/17/21 15:23:00 DISTRIBUTION ESTIMATOR, Height, 107.301, kg, 10/17/21 15:23:00 DISTRIBUTION ESTIMATOR, Weight Ondansetron 2022-0 Yes 4 mg = 1 Me moria 4 MG Oral 1-07 tab, PO, l Tablet 22:01: BID, X 5 [place] [Zofran] 00 day, # 10 tab, 0 Refill(s), Pharmacy: [facility] #[id number], 165.1, cm, 10/17/21 15:23:00 DISTRIBUTION ESTIMATOR, Height, 107.301, kg, 10/17/21 15:23:00 DISTRIBUTION ESTIMATOR, Weight Ondansetron 2022-0 Yes 4 mg = 1 Me moria 4 MG Oral 1-07 tab, PO, l Tablet 22:01: BID, X 5 [place] [Zofran] day, # 10 tab, 0 Refill(s), Pharmacy: [facility] #[id number], 165.1, cm, 10/17/21 15:23:00 DISTRIBUTION ESTIMATOR, Height, 107.301, kg, 10/17/21 15:23:00 DISTRIBUTION ESTIMATOR, Weight Ondansetron 2022-0 Yes 4 mg = 1 Me mor[facility] 4 MG Oral 1-07 tab, PO, l Tablet 22:01: BID, X 5 [place] [Zofran] 00 day, # 10 tab, 0 Refill(s), Pharmacy: [facility] #[id number], 165.1, cm, 10/17/21 15:23:00 DISTRIBUTION ESTIMATOR, Height, 107.301, kg, 10/17/21 15:23:00 DISTRIBUTION ESTIMATOR, Weight Ondansetron 2022-0 Yes 4 mg = 1 Me mor[facility] 4 MG Oral 1-07 tab, PO, l Tablet 22:01: BID, X 5 [place] [Zofran] day, # 10 tab, 0 Refill(s), Pharmacy: [facility] #[id number], 165.1, cm, 10/17/21 15:23:00 DISTRIBUTION ESTIMATOR, Height, 107.301, kg, 10/17/21 15:23:00 DISTRIBUTION ESTIMATOR, Weight Ondansetron Yes 4 mg = 1 Me mor[facility] 4 MG Oral 1-07 tab, PO, l Tablet 22:01: BID, X 5 [place] [Zofran] day, # 10 tab, 0 Refill(s), Pharmacy: [facility] #[id number], 165.1, cm, 10/17/21 15:23:00 DISTRIBUTION ESTIMATOR, Height, 107.301, kg, 10/17/21 15:23:00 DISTRIBUTION ESTIMATOR, Weight atorvastati 2020-10 Yes 10 mg = 1 M emoria n 10 mg 2-27 tab, PO, l oral tablet 21:45: Bedtime, # [place] 00 90 tab, 0 Refill(s), [id number], 165.1, cm, 10/17/21 15:23:00 DISTRIBUTION ESTIMATOR, Height, 107.301, kg, 10/17/21 15:23:00 DISTRIBUTION ESTIMATOR, Weight atorvastati 2020-10 Yes 10 mg = 1 M emoria n 10 mg 2-27 tab, PO, l oral tablet 21:45: Bedtime, # [place] 00 90 tab, 0 Refill(s), [facility][id number], 165.1, cm, 10/17/21 15:23:00 DISTRIBUTION ESTIMATOR, Height, 107.301, kg, 10/17/21 15:23:00 DISTRIBUTION ESTIMATOR, Weight atorvastati 2020-10 Yes 10 mg = 1 M emoria n 10 mg 2-27 tab, PO, l oral tablet 21:45: Bedtime, # [place] 00 90 tab, 0 Refill(s), [facility][id number], 165.1, cm, 10/17/21 15:23:00 DISTRIBUTION ESTIMATOR, Height, 107.301, kg, 10/17/21 15:23:00 DISTRIBUTION ESTIMATOR, Weight atorvastati 2020-10 Yes 10 mg = 1 M emoria n 10 mg 2-27 tab, PO, l oral tablet 21:45: Bedtime, # [place] 00 90 tab, 0 Refill(s), [facility][id number], 165.1, cm, 10/17/21 15:23:00 DISTRIBUTION ESTIMATOR, Height, 107.301, kg, 10/17/21 15:23:00 DISTRIBUTION ESTIMATOR, Weight atorvas2020-10 Yes 10 mg = 1 M emoria n 10 mg 2-27 tab, PO, l oral tablet 21:45: Bedtime, # [place] 00 90 tab, 0 Refill(s), [facility][id number], 165.1, cm, 10/17/21 15:23:00 DISTRIBUTION ESTIMATOR, Height, 107.301, kg, 10/17/21 15:23:00 DISTRIBUTION ESTIMATOR, Weight atorvastati 2020-10 Yes 10 mg = 1 M emoria n 10 mg 2-27 tab, PO, l oral tablet 21:45: Bedtime, # [place] 00 90 tab, 0 Refill(s), [facility][id number], 165.1, cm, 10/17/21 15:23:00 DISTRIBUTION ESTIMATOR, Height, 107.301, kg, 10/17/21 15:23:00 DISTRIBUTION ESTIMATOR, Weight atorvas2020-10 Yes 10 mg = 1 M emoria n 10 mg 2-27 tab, PO, l oral tablet 21:45: Bedtime, # [place] 00 90 tab, 0 Refill(s), [facility][id number], 165.1, cm, 10/17/21 15:23:00 DISTRIBUTION ESTIMATOR, Height, 107.301, kg, 10/17/21 15:23:00 DISTRIBUTION ESTIMATOR, Weight atorvastati 2020-10 Yes 10 mg = 1 M emoria n 10 mg 2-27 tab, PO, l oral tablet 21:45: Bedtime, # [place] 00 90 tab, 0 Refill(s), [facility][id number], 165.1, cm, 10/17/21 15:23:00 DISTRIBUTION ESTIMATOR, Height, 107.301, kg, 10/17/21 15:23:00 DISTRIBUTION ESTIMATOR, Weight atorvastati 2020-10 Yes 10 mg = 1 M emoria n 10 mg 2-27 tab, PO, l oral tablet 21:45: Bedtime, # [place] 00 90 tab, 0 Refill(s), [id number], 165.1, cm, 10/17/21 15:23:00 DISTRIBUTION ESTIMATOR, Height, 107.301, kg, 10/17/21 15:23:00 DISTRIBUTION ESTIMATOR, Weight atorvastati 2020-10 Yes 10 mg = 1 M emoria n 10 mg 2-27 tab, PO, l oral tablet 21:45: Bedtime, # [place] 00 90 tab, 0 Refill(s), [id number], 165.1, cm, 10/17/21 15:23:00 DISTRIBUTION ESTIMATOR, Height, 107.301, kg, 10/17/21 15:23:00 DISTRIBUTION ESTIMATOR, Weight tizanidine 2020-10 Yes 4 mg = 1 Mem oria 4 mg oral 2-27 tab, PO, l tablet 21:40: Bedtime, [place] 00 PRN for muscle spasm, # 30 tab, 0 Refill(s), [id number], 165.1, cm, 10/17/21 15:23:00 DISTRIBUTION ESTIMATOR, Height, 107.301, kg, 10/17/21 15:23:00 DISTRIBUTION ESTIMATOR, Weight Acetaminoph 2020-10 Yes 1 tab, PO, Memoria en 325 MG / 2-27 Q12H, PRN l tramadol 21:40: for pain, Herm connie hydrochlori 00 X 15 day, de 37.5 MG # 30 tab, Oral Tablet 0 [Ultracet] Refill(s), [id number], 165.1, cm, 10/17/21 15:23:00 DISTRIBUTION ESTIMATOR, Height, 107.301, kg, 10/17/21 15:23:00 DISTRIBUTION ESTIMATOR, Weight tizanidine 2020-10 Yes 4 mg = 1 Mem oria 4 mg oral 2-27 tab, PO, l tablet 21:40: Bedtime, [place] 00 PRN for muscle spasm, # 30 tab, 0 Refill(s), [facility]: [facility] #[id number], 165.1, cm, 10/17/21 15:23:00 DISTRIBUTION ESTIMATOR, Height, 107.301, kg, 10/17/21 15:23:00 DISTRIBUTION ESTIMATOR, Weight Acetaminoph 2020-10 Yes 1 tab, PO, Memoria en 325 MG / 2-27 Q12H, PRN l tramadol 21:40: for pain, Herm connie hydrochlori 00 X 15 day, de 37.5 MG # 30 tab, Oral Tablet 0 [Ultracet] Refill(s), [id number], 165.1, cm, 10/17/21 15:23:00 DISTRIBUTION ESTIMATOR, Height, 107.301, kg, 10/17/21 15:23:00 DISTRIBUTION ESTIMATOR, Weight tizanidine 2020-10 Yes 4 mg = 1 Mem oria 4 mg oral 2-27 tab, PO, l tablet 21:40: Bedtime, [place] 00 PRN for muscle spasm, # 30 tab, 0 Refill(s), [id number], 165.1, cm, 10/17/21 15:23:00 DISTRIBUTION ESTIMATOR, Height, 107.301, kg, 10/17/21 15:23:00 DISTRIBUTION ESTIMATOR, Weight Acetaminoph 2020-10 Yes 1 tab, PO, Memoria en 325 MG / 2-27 Q12H, PRN l tramadol 21:40: for pain, Herm connie hydrochlori 00 X 15 day, de 37.5 MG # 30 tab, Oral Tablet 0 [Ultracet] Refill(s), Pharmacy: [facility] #[id number], 165.1, cm, 10/17/21 15:23:00 DISTRIBUTION ESTIMATOR, Height, 107.301, kg, 10/17/21 15:23:00 DISTRIBUTION ESTIMATOR, Weight tizanidine 2020-10 Yes 4 mg = 1 Mem oria 4 mg oral 2-27 tab, PO, l tablet 21:40: Bedtime, [place] 00 PRN for muscle spasm, # 30 tab, 0 Refill(s), Pharmacy: [facility] #[id number], 165.1, cm, 10/17/21 15:23:00 DISTRIBUTION ESTIMATOR, Height, 107.301, kg, 10/17/21 15:23:00 DISTRIBUTION ESTIMATOR, Weight Acetaminoph 2020-10 Yes 1 tab, PO, Memoria en 325 MG / 2-27 Q12H, PRN l tramadol 21:40: for pain, Herm connie hydrochlori 00 X 15 day, de 37.5 MG # 30 tab, Oral Tablet 0 [Ultracet] Refill(s), Pharmacy: [facility] #[id number], 165.1, cm, 10/17/21 15:23:00 DISTRIBUTION ESTIMATOR, Height, 107.301, kg, 10/17/21 15:23:00 DISTRIBUTION ESTIMATOR, Weight tizanidine 2020-10 Yes 4 mg = 1 Mem oria 4 mg oral 2-27 tab, PO, l tablet 21:40: Bedtime, [place] 00 PRN for muscle spasm, # 30 tab, 0 Refill(s), [id number], 165.1, cm, 10/17/21 15:23:00 DISTRIBUTION ESTIMATOR, Height, 107.301, kg, 10/17/21 15:23:00 DISTRIBUTION ESTIMATOR, Weight Acetaminoph 2020-10 Yes 1 tab, PO, Memoria en 325 MG / 2-27 Q12H, PRN l tramadol 21:40: for pain, Herm connie hydrochlori 00 X 15 day, de 37.5 MG # 30 tab, Oral Tablet 0 [Ultracet] Refill(s), [facility][id number], 165.1, cm, 10/17/21 15:23:00 DISTRIBUTION ESTIMATOR, Height, 107.301, kg, 10/17/21 15:23:00 DISTRIBUTION ESTIMATOR, Weight tizanidine 2020-10 Yes 4 mg = 1 Mem oria 4 mg oral 2-27 tab, PO, l tablet 21:40: Bedtime, [place] 00 PRN for muscle spasm, # 30 tab, 0 Refill(s), [id number], 165.1, cm, 10/17/21 15:23:00 DISTRIBUTION ESTIMATOR, Height, 107.301, kg, 10/17/21 15:23:00 DISTRIBUTION ESTIMATOR, Weight Acetaminoph 2020-10 Yes 1 tab, PO, Memoria en 325 MG / 2-27 Q12H, PRN l tramadol 21:40: for pain, Herm connie hydrochlori 00 X 15 day, de 37.5 MG # 30 tab, Oral Tablet 0 [Ultracet] Refill(s), [id number], 165.1, cm, 10/17/21 15:23:00 DISTRIBUTION ESTIMATOR, Height, 107.301, kg, 10/17/21 15:23:00 DISTRIBUTION ESTIMATOR, Weight tizanidine 2020-10 Yes 4 mg = 1 Mem oria 4 mg oral 2-27 tab, PO, l tablet 21:40: Bedtime, [place] 00 PRN for muscle spasm, # 30 tab, 0 Refill(s), [facility][id number], 165.1, cm, 10/17/21 15:23:00 DISTRIBUTION ESTIMATOR, Height, 107.301, kg, 10/17/21 15:23:00 DISTRIBUTION ESTIMATOR, Weight Acetaminoph 2020-10 Yes 1 tab, PO, Memoria en 325 MG / 2-27 Q12H, PRN l tramadol 21:40: for pain, Herm connie hydrochlori X 15 day, de 37.5 MG # 30 tab, Oral Tablet 0 [Ultracet] Refill(s), [id number], 165.1, cm, 10/17/21 15:23:00 DISTRIBUTION ESTIMATOR, Height, 107.301, kg, 10/17/21 15:23:00 DISTRIBUTION ESTIMATOR, Weight tizanidine 2020-10 Yes 4 mg = 1 Mem oria 4 mg oral 2-27 tab, PO, l tablet 21:40: Bedtime, [place] 00 PRN for muscle spasm, # 30 tab, 0 Refill(s), [id number], 165.1, cm, 10/17/21 15:23:00 DISTRIBUTION ESTIMATOR, Height, 107.301, kg, 10/17/21 15:23:00 DISTRIBUTION ESTIMATOR, Weight Acetaminoph 2020-10 Yes 1 tab, PO, Memoria en 325 MG / 2-27 Q12H, PRN l tramadol 21:40: for pain, Herm connie hydrochlori 00 X 15 day, de 37.5 MG # 30 tab, Oral Tablet 0 [Ultracet] Refill(s), Pharmacy: [facility] #[id number], 165.1, cm, 10/17/21 15:23:00 DISTRIBUTION ESTIMATOR, Height, 107.301, kg, 10/17/21 15:23:00 DISTRIBUTION ESTIMATOR, Weight tizanidine 2020-10 Yes 4 mg = 1 Mem oria 4 mg oral 2-27 tab, PO, l tablet 21:40: Bedtime, [place] 00 PRN for muscle spasm, # 30 tab, 0 Refill(s), Pharmacy: [facility] #[id number], 165.1, cm, 10/17/21 15:23:00 DISTRIBUTION ESTIMATOR, Height, 107.301, kg, 10/17/21 15:23:00 DISTRIBUTION ESTIMATOR, Weight Acetaminoph 2020-10 Yes 1 tab, PO, Memoria en 325 MG / 2-27 Q12H, PRN l tramadol 21:40: for pain, Herm connie hydrochlori 00 X 15 day, de 37.5 MG # 30 tab, Oral Tablet 0 [Ultracet] Refill(s), Pharmacy: [facility] #[id number], 165.1, cm, 10/17/21 15:23:00 DISTRIBUTION ESTIMATOR, Height, 107.301, kg, 10/17/21 15:23:00 DISTRIBUTION ESTIMATOR, Weight tizanidine 2020-10 Yes 4 mg = 1 Mem oria 4 mg oral 2-27 tab, PO, l tablet 21:40: Bedtime, [place] 00 PRN for muscle spasm, # 30 tab, 0 Refill(s), Pharmacy: [facility] #[id number], 165.1, cm, 10/17/21 15:23:00 DISTRIBUTION ESTIMATOR, Height, 107.301, kg, 10/17/21 15:23:00 DISTRIBUTION ESTIMATOR, Weight Acetaminoph 2020-10 Yes 1 tab, PO, Memoria en 325 MG / 2-27 Q12H, PRN l tramadol 21:40: for pain, Herm connie hydrochlori 00 X 15 day, de 37.5 MG # 30 tab, Oral Tablet 0 [Ultracet] Refill(s), Pharmacy: [facility] #[id number], 165.1, cm, 10/17/21 15:23:00 DISTRIBUTION ESTIMATOR, Height, 107.301, kg, 10/17/21 15:23:00 DISTRIBUTION ESTIMATOR, Weight sevelamer 2020-10 Yes 1,600 mg = [...] Ointment 00 22 gm, 0 Refill(s), [id number], 165.1, cm, 09/09/21 14:08:00 DISTRIBUTION ESTIMATOR, Height, 136.42, kg, 09/09/21 14:08:00 DISTRIBUTION ESTIMATOR, Weight Mupirocin 2020-10 Yes 1 appl, Memor ia 0.02 MG/MG 1-22 TOP, TID, l Topical 23:21: X 5 day, # Herm connie Ointment 00 22 gm, 0 Refill(s), [id number], 165.1, cm, 09/09/21 14:08:00 DISTRIBUTION ESTIMATOR, Height, 136.42, kg, 09/09/21 14:08:00 DISTRIBUTION ESTIMATOR, Weight Mupirocin 2020-10 Yes 1 appl, Memor ia 0.02 MG/MG 1-22 TOP, TID, l Topical 23:21: X 5 day, # Herm connie Ointment 00 22 gm, 0 Refill(s), [id number], 165.1, cm, 09/09/21 14:08:00 DISTRIBUTION ESTIMATOR, Height, 136.42, kg, 09/09/21 14:08:00 DISTRIBUTION ESTIMATOR, Weight Mupirocin 2020-10 Yes 1 appl, Memor ia 0.02 MG/MG 1-22 TOP, TID, l Topical 23:21: X 5 day, # Herm connie Ointment 00 22 gm, 0 Refill(s), [facility][id number], 165.1, cm, 09/09/21 14:08:00 DISTRIBUTION ESTIMATOR, Height, 136.42, kg, 09/09/21 14:08:00 DISTRIBUTION ESTIMATOR, Weight Mupirocin 2020-10 Yes 1 appl, Memor ia 0.02 MG/MG 1-22 TOP, TID, l Topical 23:21: X 5 day, # Herm connie Ointment 00 22 gm, 0 Refill(s), [id number], 165.1, cm, 09/09/21 14:08:00 DISTRIBUTION ESTIMATOR, Height, 136.42, kg, 09/09/21 14:08:00 DISTRIBUTION ESTIMATOR, Weight Mupirocin 2020- Yes 1 appl, Memor ia 0.02 MG/MG 1-22 TOP, TID, l Topical 23:21: X 5 day, # Herm connie Ointment 00 22 gm, 0 Refill(s), [facility][id number], 165.1, cm, 09/09/21 14:08:00 DISTRIBUTION ESTIMATOR, Height, 136.42, kg, 09/09/21 14:08:00 DISTRIBUTION ESTIMATOR, Weight Mupirocin 2020- Yes 1 appl, Memor ia 0.02 MG/MG 1-22 TOP, TID, l Topical 23:21: X 5 day, # Herm connie Ointment 00 22 gm, 0 Refill(s), [facility][id number], 165.1, cm, 09/09/21 14:08:00 DISTRIBUTION ESTIMATOR, Height, 136.42, kg, 09/09/21 14:08:00 DISTRIBUTION ESTIMATOR, Weight Mupirocin 2020-10 Yes 1 appl, Memor ia 0.02 MG/MG 1-22 TOP, TID, l Topical 23:21: X 5 day, # Herm connie Ointment 00 22 gm, 0 Refill(s), [facility][id number], 165.1, cm, 09/09/21 14:08:00 DISTRIBUTION ESTIMATOR, Height, 136.42, kg, 09/09/21 14:08:00 DISTRIBUTION ESTIMATOR, Weight Mupirocin 2020-10 Yes 1 appl, Memor ia 0.02 MG/MG 1-22 TOP, TID, l Topical 23:21: X 5 day, # Herm connie Ointment 00 22 gm, 0 Refill(s), [facility][id number], 165.1, cm, 09/09/21 14:08:00 DISTRIBUTION ESTIMATOR, Height, 136.42, kg, 09/09/21 14:08:00 DISTRIBUTION ESTIMATOR, Weight Mupirocin 2020- Yes 1 appl, Memor ia 0.02 MG/MG 1-22 TOP, TID, l Topical 23:21: X 5 day, # Herm connie Ointment 00 22 gm, 0 Refill(s), Pharmacy: [facility] #[id number], 165.1, cm, 09/09/21 14:08:00 DISTRIBUTION ESTIMATOR, Height, 136.42, kg, 09/09/21 14:08:00 DISTRIBUTION ESTIMATOR, Weight bumetanide 2020-10 Yes 2 mg = 1 Mem oria 2 mg oral 1-19 tab, PO, l tablet 21:11: Daily, # [place] 00 30 tab, 0 Refill(s) bumetanide 2020-10 Yes 2 mg = 1 Mem oria 2 mg oral 1-19 tab, PO, l tablet 21:11: Daily, # [place] 00 30 tab, 0 Refill(s) bumetanide 2020-10 [...] tab, PO, l tablet 21:11: Daily, # [place] 00 30 tab, 0 Refill(s) bumetanide 2020-10 Yes 2 mg = 1 Mem oria 2 mg oral 1-19 tab, PO, l tablet 21:11: Daily, # [place] 00 30 tab, 0 Refill(s) bumetanide 2020-10 Yes 2 mg = 1 Mem oria 2 mg oral 1-19 tab, PO, l tablet 21:11: Daily, # [place] 00 30 tab, 0 Refill(s) bumetanide 2020-10 [...] connie 00 Refill(s) midodrine 2020-10 Yes 10mg Q.[id number] Take 10 mg [facility] (PROAMATINE 1-[id number] [facility] ) 10 MG 00:00: [facility] tablet 00 times a l day. midodrine 2020-10 Yes 10mg Q.[id number] Take 10 mg [facility] (PROAMATINE 1-[id number] [facility] ) 10 MG 00:00: [facility] tablet 00 times a l day. midodrine 2020-10 Yes 10mg Q.[id number] Take 10 mg [facility] (PROAMATINE 1-13 [id number] [address] [facility] ) 10 MG 00:00: [facility] tablet 00 times a l day. BUMETanide 2020-10 Yes 2mg QD Take 2 mg [facility] (BUMEX) 2 1-[address] MG tablet 00:00: every [facility]ospita 00 morning. l digOXIN 2020-10 Yes 125ug Q.[id number] Take 125 [facility] (LANOXIN) 1-[id number] 125 mcg 00:00: [facility] (0.125 mg) 00 (three) l tablet times a week. On dialysis , , Sunday BUMETanide 2020-10 Yes 2mg QD Take 2 mg [facility] (BUMEX) 2 -[address] MG tablet 00:00: every Hospita 00 morning. l digOXIN 2020-10 Yes 125ug Q.[id number] Take 125 [facility] (LANOXIN) 1-[id number] 125 mcg 00:00: [facility] (0.125 mg) 00 (three) l tablet times a week. On dialysis , , Sunday BUMETanide 2020-10 Yes 2mg QD Take 2 mg [facility] (BUMEX) 2 -[address] MG tablet 00:00: every Hospita 00 morning. l digOXIN 2020-10 Yes 125ug Q.[id number] Take 125 [facility] (LANOXIN) 1-[id number] 125 mcg 00:00: 3W [...] tablet 00 :00 l ipratropium 2020-10- No [id number] .5mg Q.25D Take 2.5 [facility] (ATROVENT) 0-05 02-28 mL (0.[address] 0.02 % 00:00: 00:00 total) by [facility] ta nebulizer 00 :00 nebulizati l solution on 4 (four) times a day. ipratropium 2020-10- No [id number] .5mg Q.25D Take 2.5 [facility] (ATROVENT) 0-05 02-28 mL (0.[address] 0.02 % 00:00: 00:00 total) by [facility] nebulizer 00 :00 nebulizati l solution on 4 (four) times a day. ipratropium 2020-10- No [id number] .5mg Q.25D Take 2.5 [facility] (ATROVENT) 0-05 02-28 mL (0.[address] 0.02 % 00:00: 00:00 total) by [facility] ta nebulizer 00 :00 nebulizati l solution on 4 (four) times a day. QUEtiapine 2020-0 Yes 1 tablet, Me mor[facility] 50 mg oral 3-30 once a l tablet 13:55: day, 0 [place] 00 Refill(s) torsemide 2020-0 Yes 1 tablet, Mem oria 20 mg oral 3-30 twice a l tablet 13:55: day, 0 [place] 00 Refill(s) QUEtiapine 2020-0 Yes 1 tablet, Me mor[facility] 50 mg oral 3-30 once a l tablet 13:55: day, 0 [place] 00 Refill(s) torsemide 2020-0 Yes 1 tablet, Mem oria 20 mg oral 3-30 twice a l tablet 13:55: day, 0 [place] 00 Refill(s) QUEtiapine 2020-0 Yes 1 tablet, Me moria 50 mg oral 3-30 once a l tablet 13:55: day, 0 [place] 00 Refill(s) torsemide 2021-0 Yes 1 tablet, Mem oria 20 mg oral 3-30 twice a l tablet 13:55: day, 0 [place] 00 Refill(s) QUEtiapine 2021-0 Yes 1 tablet, Me moria 50 mg oral 3-30 once a l tablet 13:55: day, 0 [place] 00 Refill(s) torsemide 2021-0 Yes 1 tablet, Mem oria 20 mg oral 3-30 twice a l tablet 13:55: day, 0 [place] 00 Refill(s) QUEtiapine 2021-0 Yes 1 tablet, Me moria 50 mg oral 3-30 once a l tablet 13:55: day, 0 [place] 00 Refill(s) torsemide 2021-0 Yes 1 tablet, Mem oria 20 mg oral 3-30 twice a l tablet 13:55: day, 0 [place] 00 Refill(s) QUEtiapine 2021-0 Yes 1 tablet, Me moria 50 mg oral 3-30 once a l tablet 13:55: day, 0 [place] 00 Refill(s) torsemide 2021-0 Yes 1 tablet, Mem oria 20 mg oral 3-30 twice a l tablet 13:55: day, 0 [place] 00 Refill(s) QUEtiapine 2021-0 Yes 1 tablet, Me moria 50 mg oral 3-30 once a l tablet 13:55: day, 0 [place] 00 Refill(s) torsemide 2021-0 Yes 1 tablet, Mem oria 20 mg oral 3-30 twice a l tablet 13:55: day, 0 [place] 00 Refill(s) QUEtiapine 2021-0 Yes 1 tablet, Me moria 50 mg oral 3-30 once a l tablet 13:55: day, 0 [place] 00 Refill(s) torsemide 2021-0 Yes 1 tablet, Mem oria 20 mg oral 3-30 twice a l tablet 13:55: day, 0 [place] 00 Refill(s) QUEtiapine 2021-0 Yes 1 tablet, Me moria 50 mg oral 3-30 once a l tablet 13:55: day, 0 [place] 00 Refill(s) torsemide 2021-0 Yes 1 tablet, Mem oria 20 mg oral 3-30 twice a l tablet 13:55: day, 0 [place] 00 Refill(s) QUEtiapine 2020-0 Yes 1 tablet, Me moria 50 mg oral 3-30 once a l tablet 13:55: day, 0 [place] 00 Refill(s) torsemide 2020-0 Yes 1 tablet, Mem oria 20 mg oral 3-30 twice a l tablet 13:55: day, 0 [place] 00 Refill(s) potassium 2020-0 Yes 1 tablet, Mem oria chloride 20 3-30 once a l mEq oral 13:54: day, 0 [place] tablet, 00 Refill(s) extended release (KCL) potassium 2020-0 Yes 1 tablet, Mem oria chloride 20 3-30 once a l mEq oral 13:54: day, 0 [place] tablet, 00 Refill(s) extended release (KCL) potassium 2020-0 Yes 1 tablet, Mem oria chloride 20 3-30 once a l mEq oral 13:54: day, 0 [place] tablet, 00 Refill(s) extended release (KCL) potassium [...] a l mEq oral 13:54: day, 0 [place] tablet, 00 Refill(s) extended release (KCL) potassium 2020-0 Yes 1 tablet, Mem oria chloride 20 3-30 once a l mEq oral 13:54: day, 0 [place] tablet, 00 Refill(s) extended release (KCL) potassium 2020-0 Yes 1 tablet, Mem oria chloride 20 3-30 once a l mEq oral 13:54: day, 0 [place] tablet, 00 Refill(s) extended release (KCL) potassium [...] 3-30 tablet, l tablet 13:53: once a [place] 00 day, 0 Refill(s) carvedilol 0 Yes [...] 3-30 tablet, l tablet 13:53: once a [place] 00 day, 0 Refill(s) carvedilol Yes 1 [...] a l mg oral 13:53: day, 0 [place] tablet 00 Refill(s) midodrine 5 Yes 1 [...] twice a l Capsule 13:53: day, 0 [place] 00 Refill(s) metoprolol 0 Yes 1 tablet, Me moria tartrate 50 3-30 Twice a l mg oral 13:53: day, 0 [place] tablet 00 Refill(s) midodrine 5 Yes 1 tablet, M emoria mg oral 3-30 twice a l tablet 13:53: day, 0 [place] 00 Refill(s) allopurinol 2020-0 Yes 1/2 Memori [...] twice a l Tablet 13:53: day, 0 [place] [Eliquis] 00 Refill(s) gabapentin Yes 1 capsule, M emoria 300 MG Oral 3-30 twice a l Capsule 13:53: day, 0 [place] 00 Refill(s) metoprolol 0 Yes 1 tablet, Me moria tartrate 50 3-30 Twice a l mg oral 13:53: day, 0 [place] tablet 00 Refill(s) midodrine 5 Yes 1 tablet, M emoria mg oral 3-30 twice a l tablet 13:53: day, 0 [place] 00 Refill(s) allopurinol Yes 1/2 Memori a 300 mg oral 3-30 tablet, l tablet 13:53: once a [place] 00 day, 0 Refill(s) carvedilol 0 Yes [...] once a l delayed 13:53: day, 0 [place] release 00 Refill(s) capsule apixaban 5 0 Yes 1 tablet, Me moria MG Oral 3-30 twice a l Tablet 13:53: day, 0 [place] [Eliquis] 00 Refill(s) gabapentin 2020-0 Yes 1 capsule, M emoria 300 MG Oral 3-30 twice a l Capsule 13:53: day, 0 [place] 00 Refill(s) metoprolol 0 Yes 1 tablet, Me moria tartrate 50 3-30 Twice a l mg oral 13:53: day, 0 [place] tablet 00 Refill(s) midodrine 5 Yes 1 tablet, M emoria mg oral 3-30 twice a l tablet 13:53: day, 0 [place] 00 Refill(s) allopurinol Yes 1/2 Memori a 300 mg oral 3-30 tablet, l tablet 13:53: once a [place] 00 day, 0 Refill(s) carvedilol Yes 1 [...] twice a l Tablet 13:53: day, 0 [place] [Eliquis] 00 Refill(s) gabapentin 0 Yes 1 [...] twice a l Tablet 13:53: day, 0 [place] [Eliquis] 00 Refill(s) gabapentin Yes 1 capsule, M emoria 300 MG Oral 3-30 twice a l Capsule 13:53: day, 0 [place] 00 Refill(s) metoprolol Yes 1 tablet, Me moria tartrate 50 3-30 Twice a l mg oral 13:53: day, 0 [place] tablet 00 Refill(s) midodrine 5 Yes 1 tablet, M emoria mg oral 3-30 twice a l tablet 13:53: day, 0 [place] 00 Refill(s) allopurinol Yes 1/2 Memori a 300 mg oral 3-30 tablet, l tablet 13:53: once a [place] 00 day, 0 Refill(s) carvedilol Yes 1 [...] once a l delayed 13:53: day, 0 [place] release 00 Refill(s) capsule apixaban 5 Yes 1 tablet, Me moria MG Oral 3-30 twice a l Tablet 13:53: day, 0 [place] [Eliquis] 00 Refill(s) gabapentin 2020-0 Yes 1 [...] 3-30 tablet, l tablet 13:53: once a [place] 00 day, 0 Refill(s) carvedilol 0 Yes [...] once a l delayed 13:53: day, 0 [place] release 00 Refill(s) capsule apixaban 5 Yes 1 tablet, Me moria MG Oral 3-30 twice a l Tablet 13:53: day, 0 [place] [Eliquis] 00 Refill(s) gabapentin 2020-0 Yes 1 capsule, M emoria 300 MG Oral 3-30 twice a l Capsule 13:53: day, 0 [place] 00 Refill(s) metoprolol 0 Yes 1 tablet, Me moria tartrate 50 3-30 Twice a l mg oral 13:53: day, 0 [place] tablet 00 Refill(s) midodrine 5 0 Yes 1 tablet, M emoria mg oral 3-30 twice a l tablet 13:53: day, 0 [place] 00 Refill(s) allopurinol 2020-0 Yes 1/2 Memori a 300 mg oral 3-30 tablet, l tablet 13:53: once a [place] 00 day, 0 Refill(s) carvedilol Yes 1 [...] 00 30 cap, 0 capsule Refill(s) Spironolact 2020- Yes 25 mg = 1 M emoria [...] 00 30 cap, 0 capsule Refill(s) Spironolact 2020- Yes 25 mg = 1 M emoria [...] DAILY, # 66 gm, 1 Refill(s), Pharmacy: [facility] #[id number], 170.18, cm, 12/16/19 14:42:00 DISTRIBUTION ESTIMATOR, Height, 164.318, kg, 12/16/19 14:42:00 DISTRIBUTION ESTIMATOR, Weight Mupirocin 2019-10 Yes See Memoria 0.02 MG/MG 0-13 Instructio l Topical 15:44: ns, APPLY Karen nn Ointment 00 EXTERNALLY TO THE AFFECTED AREA TWICE DAILY, # 66 gm, 1 Refill(s), Pharmacy: [facility] #[id number], 170.18, cm, 12/16/19 14:42:00 DISTRIBUTION ESTIMATOR, Height, 164.318, kg, 12/16/19 14:42:00 DISTRIBUTION ESTIMATOR, Weight Mupirocin 2019-10 Yes See Memoria 0.02 MG/MG 0-13 Instructio l Topical 15:44: ns, APPLY Karen nn Ointment 00 EXTERNALLY TO THE AFFECTED AREA TWICE DAILY, # 66 gm, 1 Refill(s), Pharmacy: [facility] #[id number], 170.18, cm, 12/16/19 14:42:00 DISTRIBUTION ESTIMATOR, Height, 164.318, kg, 12/16/19 14:42:00 DISTRIBUTION ESTIMATOR, Weight Mupirocin 2019- Yes See Memoria 0.02 MG/MG 0-13 Instructio l Topical 15:44: ns, APPLY Karen nn Ointment 00 EXTERNALLY TO THE AFFECTED AREA TWICE DAILY, # 66 gm, 1 Refill(s), [id number], 170.18, cm, 12/16/19 14:42:00 DISTRIBUTION ESTIMATOR, Height, 164.318, kg, 12/16/19 14:42:00 DISTRIBUTION ESTIMATOR, Weight Mupirocin 2019- Yes See Memoria 0.02 MG/MG 0-13 Instructio l Topical 15:44: ns, APPLY Karen nn Ointment 00 EXTERNALLY TO THE AFFECTED AREA TWICE DAILY, # 66 gm, 1 Refill(s), [id number], 170.18, cm, 12/16/19 14:42:00 DISTRIBUTION ESTIMATOR, Height, 164.318, kg, 12/16/19 14:42:00 DISTRIBUTION ESTIMATOR, Weight Mupirocin 2019- Yes See Memoria 0.02 MG/MG 0-13 Instructio l Topical 15:44: ns, APPLY Karen nn Ointment 00 EXTERNALLY TO THE AFFECTED AREA TWICE DAILY, # 66 gm, 1 Refill(s), Pharmacy: [facility] #[id number], 170.18, cm, 12/16/19 14:42:00 DISTRIBUTION ESTIMATOR, Height, 164.318, kg, 12/16/19 14:42:00 DISTRIBUTION ESTIMATOR, Weight Mupirocin 2019- Yes See Memoria 0.02 MG/MG 0-13 Instructio l Topical 15:44: ns, APPLY Karen nn Ointment 00 EXTERNALLY TO THE AFFECTED AREA TWICE DAILY, # 66 gm, 1 Refill(s), Pharmacy: [facility] #[id number], 170.18, cm, 12/16/19 14:42:00 DISTRIBUTION ESTIMATOR, Height, 164.318, kg, 12/16/19 14:42:00 DISTRIBUTION ESTIMATOR, Weight Mupirocin 2020- Yes See Memoria 0.02 MG/MG 0-13 Instructio l Topical 15:44: ns, APPLY Karen nn Ointment 00 EXTERNALLY TO THE AFFECTED AREA TWICE DAILY, # 66 gm, 1 Refill(s), Pharmacy: [facility] #[id number], 170.18, cm, 12/16/19 14:42:00 DISTRIBUTION ESTIMATOR, Height, 164.318, kg, 12/16/19 14:42:00 DISTRIBUTION ESTIMATOR, Weight Mupirocin 2020-1 Yes See Memoria 0.02 MG/MG 0-13 Instructio l Topical 15:44: ns, APPLY Karen nn Ointment 00 EXTERNALLY TO THE AFFECTED AREA TWICE DAILY, # 66 gm, 1 Refill(s), Pharmacy: [facility] #[id number], 170.18, cm, 12/16/19 14:42:00 DISTRIBUTION ESTIMATOR, Height, 164.318, kg, 12/16/19 14:42:00 DISTRIBUTION ESTIMATOR, Weight Mupirocin 2020-1 Yes See Memoria 0.02 MG/MG 0-13 Instructio l Topical 15:44: ns, APPLY Karen nn Ointment 00 EXTERNALLY TO THE AFFECTED AREA TWICE DAILY, # 66 gm, 1 Refill(s), Pharmacy: [facility] #[id number], 170.18, cm, 12/16/19 14:42:00 DISTRIBUTION ESTIMATOR, Height, 164.318, kg, 12/16/19 14:42:00 DISTRIBUTION ESTIMATOR, Weight Nitrofurant 2020-0 Yes 100 mg = 1 Memoria oin 100 MG 8-09 cap, PO, l Oral 17:57: BID, X 10 [place] Capsule 00 day, # 20 [Macrobid] cap, 0 Refill(s), Pharmacy: [facility] #[id number], 170.18, cm, 12/16/19 14:42:00 DISTRIBUTION ESTIMATOR, Height, 164.318, kg, 12/16/19 14:42:00 DISTRIBUTION ESTIMATOR, Weight Nitrofurant 2020-0 Yes 100 mg = 1 [facility] oin 100 MG 8-09 cap, PO, l Oral 17:57: BID, X 10 [place] Capsule 00 day, # 20 [Macrobid] cap, 0 Refill(s), Pharmacy: [facility] #[id number], 170.18, cm, 12/16/19 14:42:00 DISTRIBUTION ESTIMATOR, Height, 164.318, kg, 12/16/19 14:42:00 DISTRIBUTION ESTIMATOR, Weight Nitrofurant 2020-0 Yes 100 mg = 1 Memoria oin 100 MG 8-09 cap, PO, l Oral 17:57: BID, X 10 [place] Capsule 00 day, # 20 [Macrobid] cap, 0 Refill(s), [id number], 170.18, cm, 12/16/19 14:42:00 DISTRIBUTION ESTIMATOR, Height, 164.318, kg, 12/16/19 14:42:00 DISTRIBUTION ESTIMATOR, Weight Nitrofurant 2020-0 Yes 100 mg = 1 Mem[facility] oin 100 MG 8-09 cap, PO, l Oral 17:57: BID, X 10 [place] Capsule 00 day, # 20 [Macrobid] cap, 0 Refill(s), [id number], 170.18, cm, 12/16/19 14:42:00 DISTRIBUTION ESTIMATOR, Height, 164.318, kg, 12/16/19 14:42:00 DISTRIBUTION ESTIMATOR, Weight Nitrofurant 2020-0 Yes 100 mg = 1 Memoria oin 100 MG 8-09 cap, PO, l Oral 17:57: BID, X 10 [place] Capsule 00 day, # 20 [Macrobid] cap, 0 Refill(s), [id number], 170.18, cm, 12/16/19 14:42:00 DISTRIBUTION ESTIMATOR, Height, 164.318, kg, 12/16/19 14:42:00 DISTRIBUTION ESTIMATOR, Weight Nitrofurant 2020-0 Yes 100 mg = 1 Memoria oin 100 MG 8-09 cap, PO, l Oral 17:57: BID, X 10 [place] Capsule 00 day, # 20 [Macrobid] cap, 0 Refill(s), [id number], 170.18, cm, 12/16/19 14:42:00 DISTRIBUTION ESTIMATOR, Height, 164.318, kg, 12/16/19 14:42:00 DISTRIBUTION ESTIMATOR, Weight Nitrofurant 2020-0 Yes 100 mg = 1 Memoria oin 100 MG 8-09 cap, PO, l Oral 17:57: BID, X 10 [place] Capsule 00 day, # 20 [Macrobid] cap, 0 Refill(s), [id number], 170.18, cm, 12/16/19 14:42:00 DISTRIBUTION ESTIMATOR, Height, 164.318, kg, 12/16/19 14:42:00 DISTRIBUTION ESTIMATOR, Weight Nitrofurant 2020-0 Yes 100 mg = 1 Memoria oin 100 MG 8-09 cap, PO, l Oral 17:57: BID, X 10 [place] Capsule 00 day, # 20 [Macrobid] cap, 0 Refill(s), Pharmacy: [facility] #[id number], 170.18, cm, 12/16/19 14:42:00 DISTRIBUTION ESTIMATOR, Height, 164.318, kg, 12/16/19 14:42:00 DISTRIBUTION ESTIMATOR, Weight Nitrofurant 2020-0 Yes 100 mg = 1 Memoria oin 100 MG 8-09 cap, PO, l Oral 17:57: BID, X 10 [place] Capsule 00 day, # 20 [Macrobid] cap, 0 Refill(s), [id number], 170.18, cm, 12/16/19 14:42:00 DISTRIBUTION ESTIMATOR, Height, 164.318, kg, 12/16/19 14:42:00 DISTRIBUTION ESTIMATOR, Weight Nitrofurant 2020-0 Yes 100 mg = 1 Memoria oin 100 MG 8-09 cap, PO, l Oral 17:57: BID, X 10 [place] Capsule 00 day, # 20 [Macrobid] cap, 0 Refill(s), [id number], 170.18, cm, 12/16/19 14:42:00 DISTRIBUTION ESTIMATOR, Height, 164.318, kg, 12/16/19 14:42:00 DISTRIBUTION ESTIMATOR, Weight lisinopril 2020-0 Yes 2.5 mg = 1 M emoria 2.5 mg oral 6-04 tab, PO, l tablet 23:26: Daily, # Denis 00 30 tab, 2 Refill(s), called to pharmacy lisinopril 2020-0 Yes 2.5 mg = 1 M emoria 2.5 mg oral 6-04 tab, PO, l tablet 23:26: Daily, # [place] 00 30 tab, 2 Refill(s), called to [...] tab, PO, l tablet 23:26: Daily, # [place] 00 30 tab, 2 Refill(s), called to [...] tab, PO, l tablet 23:26: Daily, # [place] 00 30 tab, 2 Refill(s), called to pharmacy lisinopril 2020-0 Yes 2.5 mg = 1 M emoria 2.5 mg oral 6-04 tab, PO, l tablet 23:26: Daily, # Denis 00 30 tab, 2 Refill(s), called to pharmacy calcitriol 2020-0 Yes = 1 cap, Mem oria 0.25 mcg 5-20 PO, Daily, l oral 12:18: # 90 cap, [place] capsule 00 1 Refill(s), Pharmacy: [facility] #[id number] calcitriol 2020-0 Yes = 1 cap, Mem oria 0.25 mcg 5-20 PO, Daily, l oral 12:18: # 90 cap, [place] capsule 00 1 Refill(s), Pharmacy: [facility] #[id number] calcitriol 2020-0 Yes = 1 cap, Mem oria 0.25 mcg 5-20 PO, Daily, l oral 12:18: # 90 cap, [place] capsule 00 1 Refill(s), Pharmacy: [facility] #[id number] calcitriol 2020-0 Yes = 1 cap, Mem oria 0.25 mcg 5-20 PO, Daily, l oral 12:18: # 90 cap, [place] capsule 00 1 Refill(s), [id number] calcitriol 2020-0 Yes = 1 cap, Mem oria 0.25 mcg 5-20 PO, Daily, l oral 12:18: # 90 cap, [place] capsule 00 1 Refill(s), [id number] calcitriol 2020-0 Yes = 1 cap, Mem oria 0.25 mcg 5-20 PO, Daily, l oral 12:18: # 90 cap, [place] capsule 00 1 Refill(s), [id number] calcitriol 2020-0 Yes = 1 cap, Mem oria 0.25 mcg 5-20 PO, Daily, l oral 12:18: # 90 cap, [place] capsule 00 1 Refill(s), [id number] calcitriol 2020-0 Yes = 1 cap, Mem oria 0.25 mcg 5-20 PO, Daily, l oral 12:18: # 90 cap, [place] capsule 00 1 Refill(s), [id number] calcitriol 2020-0 Yes = 1 cap, Mem oria 0.25 mcg 5-20 PO, Daily, l oral 12:18: # 90 cap, [place] capsule 00 1 Refill(s), [id number] calcitriol 2020-0 Yes = 1 cap, Mem oria 0.25 mcg 5-20 PO, Daily, l oral 12:18: # 90 cap, [place] capsule 00 1 Refill(s), [id number] calcitriol 2020-0 Yes = 1 cap, Mem oria 0.25 mcg 4-16 PO, Daily, l oral 16:37: # 90 [place] capsule 47 unknown unit, Pharmacy: [facility] #[id number] calcitriol 2020-0 Yes = 1 cap, Mem oria 0.25 mcg 4-16 PO, Daily, l oral 16:37: # 90 [place] capsule 47 unknown unit, Pharmacy: [facility] #[id number] calcitriol 2020-0 Yes = 1 cap, Mem oria 0.25 mcg 4-16 PO, Daily, l oral 16:37: # 90 [place] capsule 47 unknown unit, Pharmacy: [facility] #[id number] calcitriol 2020-0 Yes = 1 cap, Mem oria 0.25 mcg 4-16 PO, Daily, l oral 16:37: # 90 [place] capsule 47 unknown unit, Pharmacy: [facility] #[id number] calcitriol 2020-0 Yes = 1 cap, Mem oria 0.25 mcg 4-16 PO, Daily, l oral 16:37: # 90 [place] capsule 47 unknown unit, Pharmacy: [facility] #[id number] calcitriol 2020-0 Yes = 1 cap, Mem oria 0.25 mcg 4-16 PO, Daily, l oral 16:37: # 90 Denis capsule 47 unknown unit, Pharmacy: [facility] #[id number] calcitriol 2020-0 Yes = 1 cap, Mem oria 0.25 mcg 4-16 PO, Daily, l oral 16:37: # 90 Denis capsule 47 unknown unit, Pharmacy: [facility] #[id number] calcitriol 2020-0 Yes = 1 cap, Mem oria 0.25 mcg 4-16 PO, Daily, l oral 16:37: # 90 [place] capsule 47 unknown unit, Pharmacy: [facility] #[id number] calcitriol 2020-0 Yes = 1 cap, Mem oria 0.25 mcg 4-16 PO, Daily, l oral 16:37: # 90 [place] capsule 47 unknown unit, Pharmacy: [facility] #[id number] calcitriol 2020-0 Yes = 1 cap, Mem oria 0.25 mcg 4-16 PO, Daily, l oral 16:37: # 90 [place] capsule 47 unknown unit, Pharmacy: [facility] #[id number] Furosemide 2020-0 Yes = 1 tab, Mem oria 40 MG Oral 4-13 PO, Every l Tablet 20:06: Other Day, Karen nn 19 # 45 tab, Pharmacy: [facility] #[id number] Furosemide 2020-0 Yes = 1 tab, Mem oria 40 MG Oral 4-13 PO, Every l Tablet 20:06: Other Day, Banner 19 # 45 tab, Pharmacy: [facility] #[id number] Furosemide 2020-0 Yes = 1 tab, Mem oria 40 MG Oral 4-13 PO, Every l Tablet 20:06: Other Day, [place] 19 # 45 tab, Pharmacy: [facility] #[id number] Furosemide 2020-0 Yes = 1 tab, Mem oria 40 MG Oral 4-13 PO, Every l Tablet 20:06: Other Day, [place] 19 # 45 tab, Pharmacy: [facility] #[id number] Furosemide 2020-0 Yes = 1 tab, Mem oria 40 MG Oral 4-13 PO, Every l Tablet 20:06: Other Day, [place] 19 # 45 tab, Pharmacy: [facility] #[id number] Furosemide 2020-0 Yes = 1 tab, Mem oria 40 MG Oral 4-13 PO, Every l Tablet 20:06: Other Day, [place] 19 # 45 tab, Pharmacy: [facility] #[id number] Furosemide 2020-0 Yes = 1 tab, Mem oria 40 MG Oral 4-13 PO, Every l Tablet 20:06: Other Day, [place] 19 # 45 tab, Pharmacy: [facility] #[id number] Furosemide 2020-0 Yes = 1 tab, Mem oria 40 MG Oral 4-13 PO, Every l Tablet 20:06: Other Day, [place] 19 # 45 tab, Pharmacy: [facility] #[id number] Furosemide 2020-0 Yes = 1 tab, Mem oria 40 MG Oral 4-13 PO, Every l Tablet 20:06: Other Day, [facility] nn 19 # 45 tab, Pharmacy: [facility] #[id number] Furosemide 2020-0 Yes = 1 tab, Mem oria 40 MG Oral 4-13 PO, Every l Tablet 20:06: Other Day, [facility] clarisse 19 # 45 tab, Pharmacy: [facility] #[id number] prednisolon 2020-0 Yes 1 drop in M emoria e acetate 4-10 each eye, l 10 MG/ML 20:53: once Denis Ophthalmic 00 daily, 0 Suspension Refill(s) bromfenac 2020-0 Yes 1 drop in Mem oria 0.7 MG/ML 4-10 right eye, l Ophthalmic 20:53: once [place] Solution 00 daily, 0 [Prolensa] Refill(s) prednisolon [...] 4-10 right eye, l Ophthalmic 20:53: once [place] Solution 00 daily, 0 [Prolensa] Refill(s) prednisolon 2020-0 Yes 1 drop in M emoria e acetate 4-10 each eye, l 10 MG/ML 20:53: once [place] Ophthalmic 00 daily, 0 Suspension Refill(s) bromfenac [...] 4-10 right eye, l Ophthalmic 20:53: once [place] Solution 00 daily, 0 [Prolensa] Refill(s) prednisolon 2020-0 Yes 1 drop in M emoria e acetate 4-10 each eye, l 10 MG/ML 20:53: once [place] Ophthalmic 00 daily, 0 Suspension Refill(s) bromfenac 2020-0 Yes 1 drop in Mem oria 0.7 MG/ML 4-10 right eye, l Ophthalmic 20:53: once [place] Solution 00 daily, 0 [Prolensa] Refill(s) prednisolon [...] 4-10 right eye, l Ophthalmic 20:53: once [place] Solution 00 daily, 0 [Prolensa] Refill(s) prednisolon 2020-0 Yes 1 drop in M emoria e acetate 4-10 each eye, l 10 MG/ML 20:53: once [place] Ophthalmic 00 daily, 0 Suspension Refill(s) bromfenac 2020-0 Yes 1 drop in Mem oria 0.7 MG/ML 4-10 right eye, l Ophthalmic 20:53: once [place] Solution 00 daily, 0 [Prolensa] Refill(s) Furosemide 2020-0 Yes = 1 tab, Mem oria 40 MG Oral 1-23 PO, Every l Tablet 15:13: Other Day, Karen robb 34 # 45 tab, Pharmacy: [facility] #[id number] Furosemide 2020-0 Yes = 1 tab, Mem oria 40 MG Oral 1-23 PO, Every l Tablet 15:13: Other Day, Karen robb 34 # 45 tab, Pharmacy: [facility] #[id number] Furosemide 2020-0 Yes = 1 tab, Mem oria 40 MG Oral 1-23 PO, Every l Tablet 15:13: Other Day, Karen orbb 34 # 45 tab, Pharmacy: [facility] #[id number] Furosemide 2020-0 Yes = 1 tab, Mem oria 40 MG Oral 1-23 PO, Every l Tablet 15:13: Other Day, Karen robb 34 # 45 tab, Pharmacy: [facility] #[id number] Furosemide 2020-0 Yes = 1 tab, Mem oria 40 MG Oral 1-23 PO, Every l Tablet 15:13: Other Day, Karen robb 34 # 45 tab, Pharmacy: [facility] #[id number] Furosemide 2020-0 Yes = 1 tab, Mem oria 40 MG Oral 1-23 PO, Every l Tablet 15:13: Other Day, Karen robb 34 # 45 tab, Pharmacy: [facility] #[id number] Furosemide 2020-0 Yes = 1 tab, Mem oria 40 MG Oral 1-23 PO, Every l Tablet 15:13: Other Day, Karen robb 34 # 45 tab, Pharmacy: [facility] #[id number] Furosemide 2020-0 Yes = 1 tab, Mem oria 40 MG Oral 1-23 PO, Every l Tablet 15:13: Other Day, Karen robb 34 # 45 tab, Pharmacy: [facility] #[id number] Furosemide 2020-0 Yes = 1 tab, Mem oria 40 MG Oral 1-23 PO, Every l Tablet 15:13: Other Day, Karen robb 34 # 45 tab, Pharmacy: [facility] #[id number] Furosemide 2020-0 Yes = 1 tab, Mem oria 40 MG Oral 1-23 PO, Every l Tablet 15:13: Other Day, Karen robb 34 # 45 tab, Pharmacy: [facility] #[id number] Mupirocin 2018-10 Yes See Memoria 0.02 MG/MG 2-27 Instructio l Topical 19:11: ns, # 66 [place] Ointment 15 gm, APPLY EXTERNALLY TO THE AFFECTED AREA TWICE DAILY, Pharmacy: [facility] #[id number] Mupirocin 2018-10 Yes See Memoria 0.02 MG/MG 2-27 Instructio l Topical 19:11: ns, # 66 [place] Ointment 15 gm, APPLY EXTERNALLY TO THE AFFECTED AREA TWICE DAILY, Pharmacy: [facility] #[id number] Mupirocin 2018-10 Yes See Memoria 0.02 MG/MG 2-27 Instructio l Topical 19:11: ns, # 66 [place] Ointment 15 gm, APPLY EXTERNALLY TO THE AFFECTED AREA TWICE DAILY, Pharmacy: [facility] [address] [place] [address] 2018-10 Yes See Memoria 0.02 MG/MG 2-27 Instructio l Topical 19:11: ns, # 66 [place] Ointment 15 gm, APPLY EXTERNALLY TO THE AFFECTED AREA TWICE DAILY, Pharmacy: [facility] [address] [place] [address] 2018-10 Yes See Memoria 0.02 MG/MG 2-27 Instructio l Topical 19:11: ns, # 66 [place] Ointment 15 gm, APPLY EXTERNALLY TO THE AFFECTED AREA TWICE DAILY, Pharmacy: [facility] [address] 2018-10 Yes See Memoria 0.02 MG/MG 2-27 Instructio l Topical 19:11: ns, # 66 [place] Ointment 15 gm, APPLY EXTERNALLY TO THE AFFECTED AREA TWICE DAILY, Pharmacy: [facility] [address] [place] [address] 2018-10 Yes See Memoria 0.02 MG/MG 2-27 Instructio l Topical 19:11: ns, # 66 [place] Ointment 15 gm, APPLY EXTERNALLY TO THE AFFECTED AREA TWICE DAILY, Pharmacy: [facility] [address] [place] [address] 2018-10 Yes See Memoria 0.02 MG/MG 2-27 Instructio l Topical 19:11: ns, # 66 [place] Ointment 15 gm, APPLY EXTERNALLY TO THE AFFECTED AREA TWICE DAILY, Pharmacy: [facility] [address] [place] [address] 2018-10 Yes See Memoria 0.02 MG/MG 2-27 Instructio l Topical 19:11: ns, # 66 [place] Ointment 15 gm, APPLY EXTERNALLY TO THE AFFECTED AREA TWICE DAILY, Pharmacy: [facility] [address] [place] [address] 2018-10 Yes See Memoria 0.02 MG/MG 2-27 Instructio l Topical 19:11: ns, # 66 [place] Ointment 15 gm, APPLY EXTERNALLY TO THE AFFECTED AREA TWICE DAILY, Pharmacy: [facility] #[facility] Nitrofurant 2018-10 Yes 100 mg = 1 Memoria oin 100 MG 2-13 cap, PO, l Oral 01:44: BID, X 5 [place] Capsule 00 day, # 10 [[place] cap, 0 n] Refill(s), Pharmacy: [facility] #[id number] Nitrofurant 2018-10 Yes 100 mg = 1 Memoria oin 100 MG 2-13 cap, PO, l Oral 01:44: BID, X 5 [place] Capsule 00 day, # 10 [[place] cap, 0 n] Refill(s), Pharmacy: [facility] #[id number] Nitrofurant 2018-10 Yes 100 mg = 1 Memoria oin 100 MG 2-13 cap, PO, l Oral 01:44: BID, X 5 [place] Capsule 00 day, # 10 [[place] cap, 0 n] Refill(s), Pharmacy: [facility] #[id number] Nitrofurant 2018-10 Yes 100 mg = 1 Memoria oin 100 MG 2-13 cap, PO, l Oral 01:44: BID, X 5 [place] Capsule 00 day, # 10 [[place] cap, 0 n] Refill(s), Pharmacy: [facility] #[id number] Nitrofurant 2018-10 Yes 100 mg = 1 Memoria oin 100 MG 2-13 cap, PO, l Oral 01:44: BID, X 5 [place] Capsule 00 day, # 10 [[place] cap, 0 n] Refill(s), Pharmacy: [facility] #[id number] Nitrofurant 2018-10 Yes 100 mg = 1 Memoria oin 100 MG 2-13 cap, PO, l Oral 01:44: BID, X 5 [place] Capsule 00 day, # 10 [[place] cap, 0 n] Refill(s), Pharmacy: [facility] #[id number] Nitrofurant 2018-10 Yes 100 mg = 1 Memoria oin 100 MG 2-13 cap, PO, l Oral 01:44: BID, X 5 [place] Capsule 00 day, # 10 [[place] cap, 0 n] Refill(s), Pharmacy: [facility] #[id number] Nitrofurant 2018-10 Yes 100 mg = 1 Memoria oin 100 MG 2-13 cap, PO, l Oral 01:44: BID, X 5 [place] Capsule 00 day, # 10 [[place] cap, 0 n] Refill(s), Pharmacy: [facility] #[id number] Nitrofurant 2018-10 Yes 100 mg = 1 Memoria oin 100 MG 2-13 cap, PO, l Oral 01:44: BID, X 5 [place] Capsule day, # 10 [[place] cap, 0 n] Refill(s), Pharmacy: [facility] #[id number] Nitrofurant 2018-10 Yes 100 mg = 1 Memoria oin 100 MG 2-13 cap, PO, l Oral 01:44: BID, X 5 [place] Capsule day, # 10 [[place] cap, 0 n] Refill(s), Pharmacy: [facility] #[id number] apixaban 2018-10 Yes 5 mg, PO, Me [...] ermann Bitartrate 00 5 MG Oral Tablet [[place] 5/325] apixaban 5 2018-10 Yes 5 mg, [...] [place] Bitartrate 00 5 MG Oral Tablet [[place] 5/325] apixaban 5 2018-10 Yes 5 mg, [...] [place] Bitartrate 00 5 MG Oral Tablet [[place] 5/325] apixaban 5 2018-10 Yes 5 mg, [...] [place] Bitartrate 00 5 MG Oral Tablet [[place] 5/325] apixaban 5 2018-10 Yes 5 mg, [...] [place] Bitartrate 00 5 MG Oral Tablet [[place] 5/325] apixaban 5 2018-10 Yes 5 mg, [...] [place] Bitartrate 00 5 MG Oral Tablet [[place] 5/325] apixaban 5 2018-10 Yes 5 mg, [...] [place] Bitartrate 00 5 MG Oral Tablet [[place] 5/325] apixaban 5 2018-10 Yes 5 mg, [...] [place] Bitartrate 00 5 MG Oral Tablet [[place] 5/325] apixaban 5 2018-10 Yes 5 mg, [...] [place] Bitartrate 00 5 MG Oral Tablet [[place] 5/325] apixaban 5 2018-10 Yes 5 mg, [...] [place] Bitartrate 00 5 MG Oral Tablet [[place] 5/325] calcitriol 2018-10 Yes = 1 cap, Mem oria 0.25 mcg 0-11 PO, Daily, l oral 21:10: # 90 [place] capsule 30 unknown unit, Pharmacy: [facility] #[id number] calcitriol 2018-10 Yes = 1 cap, Mem oria 0.25 mcg 0-11 PO, Daily, l oral 21:10: # 90 [place] capsule 30 unknown unit, Pharmacy: [facility] #[id number] calcitriol 2018-10 Yes = 1 cap, Mem oria 0.25 mcg 0-11 PO, Daily, l oral 21:10: # 90 [place] capsule 30 unknown unit, Pharmacy: [facility] #[id number] calcitriol 2018-10 Yes = 1 cap, Mem oria 0.25 mcg 0-11 PO, Daily, l oral 21:10: # 90 [place] capsule 30 unknown unit, Pharmacy: [facility] #[id number] calcitriol 2018-10 Yes = 1 cap, Mem oria 0.25 mcg 0-11 PO, Daily, l oral 21:10: # 90 [place] capsule 30 unknown unit, Pharmacy: [facility] #[id number] calcitriol 2018-10 Yes = 1 cap, Mem oria 0.25 mcg 0-11 PO, Daily, l oral 21:10: # 90 [place] capsule 30 unknown unit, Pharmacy: [facility] #[id number] calcitriol 2018-10 Yes = 1 cap, Mem oria 0.25 mcg 0-11 PO, Daily, l oral 21:10: # 90 [place] capsule 30 unknown unit, Pharmacy: [facility] #[id number] calcitriol 2019- Yes = 1 cap, Mem oria 0.25 mcg 0-11 PO, Daily, l oral 21:10: # 90 [place] capsule 30 unknown unit, Pharmacy: [facility] #[id number] calcitriol 2019- Yes = 1 cap, Mem oria 0.25 mcg 0-11 PO, Daily, l oral 21:10: # 90 [place] capsule 30 unknown unit, Pharmacy: [facility] #[id number] calcitriol 2019- Yes = 1 cap, Mem oria 0.25 mcg 0-11 PO, Daily, l oral 21:10: # 90 [place] capsule 30 unknown unit, Pharmacy: [facility] #[id number] gabapentin 2019-0 Yes 300 mg = 1 [...] 02:39: # 90 tab, [place] n Pharmacy: [facility] #[id number] allopurinol 2019-0 Yes = 1 tab, Me moria 300 mg oral 8-17 PO, Daily, l tablet 02:39: # 90 tab, [place] n [facility] #[id number] allopurinol 2019-0 Yes = 1 tab, Me moria 300 mg oral 8-17 PO, Daily, l tablet 02:39: # 90 tab, [place] n [facility] #[id number] allopurinol 2019-0 Yes = 1 tab, Me moria 300 mg oral 8-17 PO, Daily, l tablet 02:39: # 90 tab, [place] n [facility][id number] allopurinol 2019-0 Yes = 1 tab, Me moria 300 mg oral 8-17 PO, Daily, l tablet 02:39: # 90 tab, [place] n [facility][id number] allopurinol 2019-0 Yes = 1 tab, Me moria 300 mg oral 8-17 PO, Daily, l tablet 02:39: # 90 tab, [place] n [facility][id number] allopurinol 2019-0 Yes = 1 tab, Me moria 300 mg oral 8-17 PO, Daily, l tablet 02:39: # 90 tab, Vicente n 31 Pharmacy: [facility] #[id number] allopurinol 2019-0 Yes = 1 tab, Me moria 300 mg oral 8-17 PO, Daily, l tablet 02:39: # 90 tabVicente n 31 Pharmacy: [facility] #[id number] allopurinol 2019-0 Yes = 1 tab, Me moria 300 mg oral 8-17 PO, Daily, l tablet 02:39: # 90 tabVicente n 31 Pharmacy: [facility] #[id number] allopurinol 2019-0 Yes = 1 tab, Me moria 300 mg oral 8-17 PO, Daily, l tablet 02:39: # 90 tabVicente n 31 Pharmacy: [facility] #[id number] QUEtiapine 2019-0 Yes 50 mg = 1 [...] nn 00 30 tab, 1 Refill(s) eletriptan 2019- Yes 40 mg = 1 Me moria [...] hours, # 6 tab, 0 Refill(s) eletriptan 2019- Yes 40 mg = 1 Me moria [...] l oral tablet 15:07: ns, TAKE 1 [place] 35 TABLET BY MOUTH EVERY NIGHT AT BEDTIME, # 90 tab, 1 Refill(s), Pharmacy: [facility] atorvastati Yes See Memori a n 40 mg 3-14 Instructio l oral tablet 15:07: ns, TAKE 1 Denis 35 TABLET BY MOUTH EVERY NIGHT AT BEDTIME, # 90 tab, 1 Refill(s), Pharmacy: [facility] atorvastati Yes See Memori a n 40 mg 3-14 Instructio l oral tablet 15:07: ns, TAKE 1 [place] 35 TABLET BY MOUTH EVERY NIGHT AT BEDTIME, # 90 tab, 1 Refill(s), Pharmacy: [facility] atorvastati Yes See Memori a n 40 mg 3-14 Instructio l oral tablet 15:07: ns, TAKE 1 Denis 35 TABLET BY MOUTH EVERY NIGHT AT BEDTIME, # 90 tab, 1 Refill(s), Pharmacy: [facility] atorTransmetricstati Yes See Memori a n 40 mg 3-14 Instructio l oral tablet 15:07: ns, TAKE 1 Denis 35 TABLET BY MOUTH EVERY NIGHT AT BEDTIME, # 90 tab, 1 Refill(s), Pharmacy: [address] Yes See Memori a n 40 mg 3-14 Instructio l oral tablet 15:07: ns, TAKE 1 [place] 35 TABLET BY MOUTH EVERY NIGHT AT BEDTIME, # 90 tab, 1 Refill(s), Pharmacy: [address] Yes See Memori a n 40 mg 3-14 Instructio l oral tablet 15:07: ns, TAKE 1 Denis 35 TABLET BY MOUTH EVERY NIGHT AT BEDTIME, # 90 tab, 1 Refill(s), Pharmacy: [address] Yes See Memori a n 40 mg 3-14 Instructio l oral tablet 15:07: ns, TAKE 1 Denis 35 TABLET BY MOUTH EVERY NIGHT AT BEDTIME, # 90 tab, 1 Refill(s), Pharmacy: [address] Yes See Memori a n 40 mg 3-14 Instructio l oral tablet 15:07: ns, TAKE 1 Denis 35 TABLET BY MOUTH EVERY NIGHT AT BEDTIME, # 90 tab, 1 Refill(s), Pharmacy: [address] Yes See Memori a n 40 mg 3-14 Instructio l oral tablet 15:07: ns, TAKE 1 [place] 35 TABLET BY MOUTH EVERY NIGHT AT BEDTIME, # 90 tab, 1 Refill(s), Pharmacy: [place] [address] amLODIPine Yes See Memoria 5 mg oral 3-14 Instructio l tablet 15:07: ns, TAKE 1 Karen nn 33 TABLET BY MOUTH EVERY DAY, # 90 tab, 1 Refill(s), Pharmacy: [place] [address] amLODIPine Yes See Memoria 5 mg oral 3-14 Instructio l tablet 15:07: ns, TAKE 1 Karen nn 33 TABLET BY MOUTH EVERY DAY, # 90 tab, 1 Refill(s), Pharmacy: [place] [address] amLODIPine 2019-0 Yes See Memoria 5 mg oral 3-14 Instructio l tablet 15:07: ns, TAKE 1 Karen nn 33 TABLET BY MOUTH EVERY DAY, # 90 tab, 1 Refill(s), Pharmacy: [place] [address] amLODIPine Yes See Memoria 5 mg oral 3-14 Instructio l tablet 15:07: ns, TAKE 1 Karen nn 33 TABLET BY MOUTH EVERY DAY, # 90 tab, 1 Refill(s), Pharmacy: [place] [address] amLODIPine Yes See Memoria 5 mg oral 3-14 Instructio l tablet 15:07: ns, TAKE 1 Karen nn 33 TABLET BY MOUTH EVERY DAY, # 90 tab, 1 Refill(s), Pharmacy: [place] [address] amLODIPine Yes See Memoria 5 mg oral 3-14 Instructio l tablet 15:07: ns, TAKE 1 Karen nn 33 TABLET BY MOUTH EVERY DAY, # 90 tab, 1 Refill(s), Pharmacy: [facility] [employer] [place] [address] amLODIPine Yes See Memoria 5 mg oral 3-14 Instructio l tablet 15:07: ns, TAKE 1 Karen nn 33 TABLET BY MOUTH EVERY DAY, # 90 tab, 1 Refill(s), Pharmacy: [facility] [employer] [place] [address] amLODIPine Yes See Memoria 5 mg oral 3-14 Instructio l tablet 15:07: ns, TAKE 1 Karen nn 33 TABLET BY MOUTH EVERY DAY, # 90 tab, 1 Refill(s), Pharmacy: [facility] [employer] [place] [address] amLODIPine Yes See Memoria 5 mg oral 3-14 Instructio l tablet 15:07: ns, TAKE 1 Karen nn 33 TABLET BY MOUTH EVERY DAY, # 90 tab, 1 Refill(s), Pharmacy: [place] [address] amLODIPine Yes See Memoria 5 mg oral 3-14 Instructio l tablet 15:07: ns, TAKE 1 Karen nn 33 TABLET BY MOUTH EVERY DAY, # 90 tab, 1 Refill(s), Pharmacy: [place] [address] lisinopril Yes See Memoria 5 mg oral 8-21 Instructio l tablet 19:00: ns, TAKE 1 Karen nn 30 TABLET BY MOUTH DAILY, # 90 tab, 1 Refill(s), Pharmacy: [facility] [employer] [place] [address] lisinopril Yes See Memoria 5 mg oral 8-21 Instructio l tablet 19:00: ns, TAKE 1 Karen nn 30 TABLET BY MOUTH DAILY, # 90 tab, 1 Refill(s), Pharmacy: [place] [address] lisinopril Yes See Memoria 5 mg oral 8-21 Instructio l tablet 19:00: ns, TAKE 1 Karen nn 30 TABLET BY MOUTH DAILY, # 90 tab, 1 Refill(s), Pharmacy: [facility] [employer] [place] [address] lisinopril Yes See Memoria 5 mg oral 8-21 Instructio l tablet 19:00: ns, TAKE 1 Karen nn 30 TABLET BY MOUTH DAILY, # 90 tab, 1 Refill(s), Pharmacy: [place] [address] lisinopril Yes See Memoria 5 mg oral 8-21 Instructio l tablet 19:00: ns, TAKE 1 Karen nn 30 TABLET BY MOUTH DAILY, # 90 tab, 1 Refill(s), Pharmacy: [facility] [employer] [place] [address] lisinopril Yes See Memoria 5 mg oral 8-21 Instructio l tablet 19:00: ns, TAKE 1 Karen nn 30 TABLET BY MOUTH DAILY, # 90 tab, 1 Refill(s), Pharmacy: [facility] [employer] [place] [address] lisinopril Yes See Memoria 5 mg oral 8-21 Instructio l tablet 19:00: ns, TAKE 1 Karen nn 30 TABLET BY MOUTH DAILY, # 90 tab, 1 Refill(s), Pharmacy: [facility] [employer] [place] [address] lisinopril Yes See Memoria 5 mg oral 8-21 Instructio l tablet 19:00: ns, TAKE 1 Karen nn 30 TABLET BY MOUTH DAILY, # 90 tab, 1 Refill(s), Pharmacy: [facility] [employer] [place] [address] lisinopril Yes See Memoria 5 mg oral 8-21 Instructio l tablet 19:00: ns, TAKE 1 Karen nn 30 TABLET BY MOUTH DAILY, # 90 tab, 1 Refill(s), Pharmacy: [facility] [employer] [place] [address] lisinopril Yes See Memoria 5 mg oral 8-21 Instructio l tablet 19:00: ns, TAKE 1 Karen nn 30 TABLET BY MOUTH DAILY, # 90 tab, 1 Refill(s), Pharmacy: [facility] [employer] [address] Yes See Memori a n 40 mg 8-21 Instructio l oral tablet 18:50: ns, TAKE 1 [place] 45 TABLET BY MOUTH EVERY NIGHT AT BEDTIME, # 30 tab, 5 Refill(s), Pharmacy: [address] Yes See Memori a n 40 mg 8-21 Instructio l oral tablet 18:50: ns, TAKE 1 [place] 45 TABLET BY MOUTH EVERY NIGHT AT BEDTIME, # 30 tab, 5 Refill(s), Pharmacy: [facility] [employer] [address] Yes See Memori a n 40 mg 8-21 Instructio l oral tablet 18:50: ns, TAKE 1 Denis 45 TABLET BY MOUTH EVERY NIGHT AT BEDTIME, # 30 tab, 5 Refill(s), Pharmacy: [facility] [employer] [address] Yes See Memori a n 40 mg 8-21 Instructio l oral tablet 18:50: ns, TAKE 1 [place] 45 TABLET BY MOUTH EVERY NIGHT AT BEDTIME, # 30 tab, 5 Refill(s), Pharmacy: [facility] [employer] [address] Yes See Memori a n 40 mg 8-21 Instructio l oral tablet 18:50: ns, TAKE 1 [place] 45 TABLET BY MOUTH EVERY NIGHT AT BEDTIME, # 30 tab, 5 Refill(s), Pharmacy: [facility] [employer] [address] Yes See Memori a n 40 mg 8-21 Instructio l oral tablet 18:50: ns, TAKE 1 [place] 45 TABLET BY MOUTH EVERY NIGHT AT BEDTIME, # 30 tab, 5 Refill(s), Pharmacy: [facility] [employer] [address] Yes See Memori a n 40 mg 8-21 Instructio l oral tablet 18:50: ns, TAKE 1 [place] 45 TABLET BY MOUTH EVERY NIGHT AT BEDTIME, # 30 tab, 5 Refill(s), Pharmacy: [facility] [employer] [address] Yes See Memori a n 40 mg 8-21 Instructio l oral tablet 18:50: ns, TAKE 1 Denis 45 TABLET BY MOUTH EVERY NIGHT AT BEDTIME, # 30 tab, 5 Refill(s), Pharmacy: [place] [address] atorvastati Yes See Memori a n 40 mg 8-21 Instructio l oral tablet 18:50: ns, TAKE 1 Denis 45 TABLET BY MOUTH EVERY NIGHT AT BEDTIME, # 30 tab, 5 Refill(s), Pharmacy: [place] [address] atorvastati Yes See Memori a n 40 mg 8-21 Instructio l oral tablet 18:50: ns, TAKE 1 Denis 45 TABLET BY MOUTH EVERY NIGHT AT BEDTIME, # 30 tab, 5 Refill(s), Pharmacy: [place] [address] amLODIPine Yes See Memoria 5 mg oral 8-21 Instructio l tablet 18:50: ns, TAKE 1 Karen nn 41 TABLET BY MOUTH EVERY DAY, # 30 tab, 5 Refill(s), Pharmacy: [place] [address] amLODIPine Yes See Memoria 5 mg oral 8-21 Instructio l tablet 18:50: ns, TAKE 1 Karen nn 41 TABLET BY MOUTH EVERY DAY, # 30 tab, 5 Refill(s), Pharmacy: [place] [address] amLODIPine Yes See Memoria 5 mg oral 8-21 Instructio l tablet 18:50: ns, TAKE 1 Karen nn 41 TABLET BY MOUTH EVERY DAY, # 30 tab, 5 Refill(s), Pharmacy: [place] [address] amLODIPine Yes See Memoria 5 mg oral 8-21 Instructio l tablet 18:50: ns, TAKE 1 Karen nn 41 TABLET BY MOUTH EVERY DAY, # 30 tab, 5 Refill(s), Pharmacy: [place] [address] amLODIPine Yes See Memoria 5 mg oral 8-21 Instructio l tablet 18:50: ns, TAKE 1 Karen nn 41 TABLET BY MOUTH EVERY DAY, # 30 tab, 5 Refill(s), Pharmacy: [place] [address] amLODIPine Yes See Memoria 5 mg oral 8-21 Instructio l tablet 18:50: ns, TAKE 1 Karen nn 41 TABLET BY MOUTH EVERY DAY, # 30 tab, 5 Refill(s), Pharmacy: [facility] [place] [address] amLODIPine Yes See Memoria 5 mg oral 8-21 Instructio l tablet 18:50: ns, TAKE 1 Karen nn 41 TABLET BY MOUTH EVERY DAY, # 30 tab, 5 Refill(s), Pharmacy: [facility] [place] [address] amLODIPine Yes See Memoria 5 mg oral 8-21 Instructio l tablet 18:50: ns, TAKE 1 Karen nn 41 TABLET BY MOUTH EVERY DAY, # 30 tab, 5 Refill(s), Pharmacy: [facility] [place] [address] amLODIPine Yes See Memoria 5 mg oral 8-21 Instructio l tablet 18:50: ns, TAKE 1 Karen nn 41 TABLET BY MOUTH EVERY DAY, # 30 tab, 5 Refill(s), Pharmacy: [facility] [place] [address] amLODIPine Yes See Memoria 5 mg oral 8-21 Instructio l tablet 18:50: ns, TAKE 1 Karen nn 41 TABLET BY MOUTH EVERY DAY, # 30 tab, 5 Refill(s), Pharmacy: [facility] [place] [address] lisinopril No See Memoria 5 mg oral 7-31 Instructio l tablet 15:28: ns, # 90 [place] 34 tab, TAKE 1 TABLET BY MOUTH DAILY, Pharmacy: [facility] [place] [address] lisinopril No See Memoria 5 mg oral 7-31 Instructio l tablet 15:28: ns, # 90 [place] 34 tab, TAKE 1 TABLET BY MOUTH DAILY, Pharmacy: [facility] [place] [address] lisinopril No See Memoria 5 mg oral 7-31 Instructio l tablet 15:28: ns, # 90 Denis 34 tab, TAKE 1 TABLET BY MOUTH DAILY, Pharmacy: [facility] [place] [address] lisinopril 0 No See Memoria 5 mg oral 7-31 Instructio l tablet 15:28: ns, # 90 Denis 34 tab, TAKE 1 TABLET BY MOUTH DAILY, Pharmacy: [facility] [place] [address] lisinopril 0 No See Memoria 5 mg oral 7-31 Instructio l tablet 15:28: ns, # 90 Denis 34 tab, TAKE 1 TABLET BY MOUTH DAILY, Pharmacy: [facility] [place] [address] lisinopril 2017-0 No See Memoria 5 mg oral 7-31 Instructio l tablet 15:28: ns, # 90 [place] 34 tab, TAKE 1 TABLET BY MOUTH DAILY, Pharmacy: [facility] [place] [address] lisinopril No See Memoria 5 mg oral 7-31 Instructio l tablet 15:28: ns, # 90 [place] 34 tab, TAKE 1 TABLET BY MOUTH DAILY, Pharmacy: [facility] [place] [address] lisinopril No See Memoria 5 mg oral 7-31 Instructio l tablet 15:28: ns, # 90 Denis 34 tab, TAKE 1 TABLET BY MOUTH DAILY, Pharmacy: [facility] [place] [address] lisinopril No See Memoria 5 mg oral 7-31 Instructio l tablet 15:28: ns, # 90 Denis 34 tab, TAKE 1 TABLET BY MOUTH DAILY, Pharmacy: [facility] [place] [address] lisinopril No See Memoria 5 mg oral 7-31 Instructio l tablet 15:28: ns, # 90 Denis 34 tab, TAKE 1 TABLET BY MOUTH DAILY, Pharmacy: [facility] [place] [address] allopurinol 0 No 300 mg = 1 Memoria 300 mg oral 5-10 tab, PO, l tablet 13:59: Daily, # Denis 00 90 tab, 1 Refill(s), Pharmacy: [facility] [place] [address] allopurinol 2017-0 No 300 mg = 1 Memoria 300 mg oral 5-10 tab, PO, l tablet 13:59: Daily, # [place] 00 90 tab, 1 Refill(s), Pharmacy: [facility] [place] [address] allopurinol 2017-0 No 300 mg = 1 Memoria 300 mg oral 5-10 tab, PO, l tablet 13:59: Daily, # Denis 00 90 tab, 1 Refill(s), Pharmacy: [facility] [place] [address] allopurinol 2017-0 No 300 mg = 1 Memoria 300 mg oral 5-10 tab, PO, l tablet 13:59: Daily, # Denis 00 90 tab, 1 Refill(s), Pharmacy: [facility] [id number] allopurinol 2018-0 No 300 mg = 1 Memoria 300 mg oral 5-10 tab, PO, l tablet 13:59: Daily, # [place] 00 90 tab, 1 Refill(s), Pharmacy: [place] [address] allopurinol No 300 mg = 1 Memoria 300 mg oral 5-10 tab, PO, l tablet 13:59: Daily, # [place] 00 90 tab, 1 Refill(s), Pharmacy: [facility] [place] [address] allopurinol No 300 mg = 1 Memoria 300 mg oral 5-10 tab, PO, l tablet 13:59: Daily, # Denis 00 90 tab, 1 Refill(s), Pharmacy: [facility] [place] [address] allopurinol No 300 mg = 1 Memoria 300 mg oral 5-10 tab, PO, l tablet 13:59: Daily, # [place] 00 90 tab, 1 Refill(s), Pharmacy: [facility] [place] [address] allopurinol No 300 mg = 1 Memoria 300 mg oral 5-10 tab, PO, l tablet 13:59: Daily, # [place] 00 90 tab, 1 Refill(s), Pharmacy: [facility] [place] [address] allopurinol No 300 mg = 1 Memoria 300 mg oral 5-10 tab, PO, l tablet 13:59: Daily, # Denis 00 90 tab, 1 Refill(s), Pharmacy: [facility] [place] [address] lisinopril No See Memoria 5 mg oral 5-01 Instructio l tablet 12:38: ns, # 90 [place] 18 tab, TAKE 1 TABLET BY MOUTH DAILY, Pharmacy: [facility] [place] [address] ALLOPURINOL Yes See Memori a 300MG 5-01 Instructio l TABLETS 12:38: ns, # 90 Vic[place] n 18 tab, TAKE 1 TABLET BY MOUTH DAILY, Pharmacy: [facility] [place] [address] lisinopril No See Memoria 5 mg oral 5-01 Instructio l tablet 12:38: ns, # 90 [place] 18 tab, TAKE 1 TABLET BY MOUTH DAILY, Pharmacy: [facility] [place] [address] ALLOPURINOL Yes See Memori a 300MG 5-01 Instructio l TABLETS 12:38: ns, # 90 [place] n 18 tab, TAKE 1 TABLET BY MOUTH DAILY, Pharmacy: [facility] [place] [address] lisinopril 0 No See Memoria 5 mg oral 5-01 Instructio l tablet 12:38: ns, # 90 [place] 18 tab, TAKE 1 TABLET BY MOUTH DAILY, Pharmacy: [facility] [place] [address] ALLOPURINOL 0 Yes See Memori a 300MG 5-01 Instructio l TABLETS 12:38: ns, # 90 [place] n 18 tab, TAKE 1 TABLET BY MOUTH DAILY, Pharmacy: [facility] [place] [address] lisinopril 0 No See Memoria 5 mg oral 5-01 Instructio l tablet 12:38: ns, # 90 [place] 18 tab, TAKE 1 TABLET BY MOUTH DAILY, Pharmacy: [facility] [place] [address] ALLOPURINOL 0 Yes See Memori a 300MG 5-01 Instructio l TABLETS 12:38: ns, # 90 [place] 18 tab, TAKE 1 TABLET BY MOUTH DAILY, Pharmacy: [facility] [place] [address] lisinopril 0 No See Memoria 5 mg oral 5-01 Instructio l tablet 12:38: ns, # 90 Denis 18 tab, TAKE 1 TABLET BY MOUTH DAILY, Pharmacy: [facility] [place] [address] ALLOPURINOL 0 Yes See Memori a 300MG 5-01 Instructio l TABLETS 12:38: ns, # 90 [place] 18 tab, TAKE 1 TABLET BY MOUTH DAILY, Pharmacy: [facility] [place] [address] lisinopril 0 No See Memoria 5 mg oral 5-01 Instructio l tablet 12:38: ns, # 90 [place] 18 tab, TAKE 1 TABLET BY MOUTH DAILY, Pharmacy: [facility] [place] [address] ALLOPURINOL 2018-0 Yes See Memori a 300MG 5-01 Instructio l TABLETS 12:38: ns, # 90 [place] 18 tab, TAKE 1 TABLET BY MOUTH DAILY, Pharmacy: [facility] [place] [address] lisinopril 0 No See Memoria 5 mg oral 5-01 Instructio l tablet 12:38: ns, # 90 [place] 18 tab, TAKE 1 TABLET BY MOUTH DAILY, Pharmacy: [facility] [place] [address] ALLOPURINOL 2018-0 Yes See Memori a 300MG 5-01 Instructio l TABLETS 12:38: ns, # 90 [place] 18 tab, TAKE 1 TABLET BY MOUTH DAILY, Pharmacy: [facility] [place] [address] lisinopril No See Memoria 5 mg oral 5-01 Instructio l tablet 12:38: ns, # 90 [place] 18 tab, TAKE 1 TABLET BY MOUTH DAILY, Pharmacy: [facility] [place] [address] ALLOPURINOL Yes See Memori a 300MG 5-01 Instructio l TABLETS 12:38: ns, # 90 [place] n 18 tab, TAKE 1 TABLET BY MOUTH DAILY, Pharmacy: [facility] [place] [address] lisinopril No See Memoria 5 mg oral 5-01 Instructio l tablet 12:38: ns, # 90 [place] 18 tab, TAKE 1 TABLET BY MOUTH DAILY, Pharmacy: [facility] [place] [address] ALLOPURINOL Yes See Memori a 300MG 5-01 Instructio l TABLETS 12:38: ns, # 90 [place] n 18 tab, TAKE 1 TABLET BY MOUTH DAILY, Pharmacy: [facility] [place] [address] lisinopril No See Memoria 5 mg oral 5-01 Instructio l tablet 12:38: ns, # 90 Denis 18 tab, TAKE 1 TABLET BY MOUTH DAILY, Pharmacy: [facility] [place] [address] ALLOPURINOL Yes See Memori a 300MG 5-01 Instructio l TABLETS 12:38: ns, # 90 [place] 18 tab, TAKE 1 TABLET BY MOUTH DAILY, Pharmacy: [facility] [place] [address] calcitriol Yes 0.25 Memoria 0.25 mcg 3-28 microgram l oral 13:49: = 1 cap, [place] capsule 00 PO, Daily, # 90 cap, 3 Refill(s), Pharmacy: [facility] [place] [address] calcitriol Yes 0.25 Memoria 0.25 mcg 3-28 microgram l oral 13:49: = 1 cap, [place] capsule 00 PO, Daily, # 90 cap, 3 Refill(s), Pharmacy: [facility] [place] [address] calcitriol Yes 0.25 Memoria 0.25 mcg 3-28 microgram l oral 13:49: = 1 cap, [place] capsule 00 PO, Daily, # 90 cap, 3 Refill(s), Pharmacy: [facility] [place] [address] calcitriol Yes 0.25 Memoria 0.25 mcg 3-28 microgram l oral 13:49: = 1 cap, [place] capsule 00 PO, Daily, # 90 cap, 3 Refill(s), Pharmacy: [facility] [place] [address] calcitriol Yes 0.25 Memoria 0.25 mcg 3-28 microgram l oral 13:49: = 1 cap, Denis capsule 00 PO, Daily, # 90 cap, 3 Refill(s), Pharmacy: [place] [address] calcitriol Yes 0.25 Memoria 0.25 mcg 3-28 microgram l oral 13:49: = 1 cap, [place] capsule 00 PO, Daily, # 90 cap, 3 Refill(s), Pharmacy: [facility] [place] [address] calcitriol Yes 0.25 Memoria 0.25 mcg 3-28 microgram l oral 13:49: = 1 cap, [place] capsule 00 PO, Daily, # 90 cap, 3 Refill(s), Pharmacy: [facility] [place] [address] calcitriol Yes 0.25 Memoria 0.25 mcg 3-28 microgram l oral 13:49: = 1 cap, Denis capsule 00 PO, Daily, # 90 cap, 3 Refill(s), Pharmacy: [facility] [place] [address] calcitriol Yes 0.25 Memoria 0.25 mcg 3-28 microgram l oral 13:49: = 1 cap, Denis capsule 00 PO, Daily, # 90 cap, 3 Refill(s), Pharmacy: [facility] [place] [address] calcitriol Yes 0.25 Memoria 0.25 mcg 3-28 microgram l oral 13:49: = 1 cap, Denis capsule 00 PO, Daily, # 90 cap, 3 Refill(s), Pharmacy: [facility] [place] [address] Mupirocin Yes 1 appl, Memor ia 0.02 MG/MG 3-21 TOP, BID, l Topical 15:37: 30 grams Vicente n Ointment 21 3each, # 3 ea, 1 Refill(s), Pharmacy: [facility] [place] [address] Mupirocin 2018-0 Yes 1 appl, Memor ia 0.02 MG/MG 3-21 TOP, BID, l Topical 15:37: 30 grams Vicente n Ointment 21 3each, # 3 ea, 1 Refill(s), Pharmacy: [facility] [address] 2017- Yes 1 appl, Memor ia 0.02 MG/MG 3-21 TOP, BID, l Topical 15:37: 30 grams Vicente n Ointment 21 3each, # 3 ea, 1 Refill(s), Pharmacy: [facility] [address] Yes 1 appl, Memor ia 0.02 MG/MG 3-21 TOP, BID, l Topical 15:37: 30 grams Vicente n Ointment 21 3each, # 3 ea, 1 Refill(s), Pharmacy: [facility] [address] Yes 1 appl, Memor ia 0.02 MG/MG 3-21 TOP, BID, l Topical 15:37: 30 grams Vicente n Ointment 21 3each, # 3 ea, 1 Refill(s), Pharmacy: [facility] [address] Yes 1 appl, Memor ia 0.02 MG/MG 3-21 TOP, BID, l Topical 15:37: 30 grams Vicente n Ointment 21 3each, # 3 ea, 1 Refill(s), Pharmacy: [facility] [address] Yes 1 appl, Memor ia 0.02 MG/MG 3-21 TOP, BID, l Topical 15:37: 30 grams Vicente n Ointment 21 3each, # 3 ea, 1 Refill(s), Pharmacy: [facility] [address] 2017-0 Yes 1 appl, Memor ia 0.02 MG/MG 3-21 TOP, BID, l Topical 15:37: 30 grams Vicente n Ointment 21 3each, # 3 ea, 1 Refill(s), Pharmacy: [facility] [address] Yes 1 appl, Memor ia 0.02 MG/MG 3-21 TOP, BID, l Topical 15:37: 30 grams Vicente n Ointment 21 3each, # 3 ea, 1 Refill(s), Pharmacy: [facility] [place] [address] Mupirocin Yes 1 appl, Memor ia 0.02 MG/MG 3-21 TOP, BID, l Topical 15:37: 30 grams Vicente n Ointment 21 3each, # 3 ea, 1 Refill(s), Pharmacy: [facility] [address] Yes See Memori a n 40 mg 3-21 Instructio l oral tablet 15:36: ns, TAKE 1 [place] 22 TABLET BY MOUTH EVERY NIGHT AT BEDTIME, # 30 tab, 5 Refill(s), Pharmacy: [facility] [address] Yes See Memori a n 40 mg 3-21 Instructio l oral tablet 15:36: ns, TAKE 1 [place] 22 TABLET BY MOUTH EVERY NIGHT AT BEDTIME, # 30 tab, 5 Refill(s), Pharmacy: [facility] [address] Yes See Memori a n 40 mg 3-21 Instructio l oral tablet 15:36: ns, TAKE 1 Denis 22 TABLET BY MOUTH EVERY NIGHT AT BEDTIME, # 30 tab, 5 Refill(s), Pharmacy: [facility] [address] Yes See Memori a n 40 mg 3-21 Instructio l oral tablet 15:36: ns, TAKE 1 Denis 22 TABLET BY MOUTH EVERY NIGHT AT BEDTIME, # 30 tab, 5 Refill(s), Pharmacy: [facility] [address] Yes See Memori a n 40 mg 3-21 Instructio l oral tablet 15:36: ns, TAKE 1 [place] 22 TABLET BY MOUTH EVERY NIGHT AT BEDTIME, # 30 tab, 5 Refill(s), Pharmacy: [facility] [address] Yes See Memori a n 40 mg 3-21 Instructio l oral tablet 15:36: ns, TAKE 1 [place] 22 TABLET BY MOUTH EVERY NIGHT AT BEDTIME, # 30 tab, 5 Refill(s), Pharmacy: [facility] [address] Yes See Memori a n 40 mg 3-21 Instructio l oral tablet 15:36: ns, TAKE 1 [place] 22 TABLET BY MOUTH EVERY NIGHT AT BEDTIME, # 30 tab, 5 Refill(s), Pharmacy: [place] [address] atorvastati Yes See Memori a n 40 mg 3-21 Instructio l oral tablet 15:36: ns, TAKE 1 [place] 22 TABLET BY MOUTH EVERY NIGHT AT BEDTIME, # 30 tab, 5 Refill(s), Pharmacy: [place] [address] atorvastati Yes See Memori a n 40 mg 3-21 Instructio l oral tablet 15:36: ns, TAKE 1 [place] 22 TABLET BY MOUTH EVERY NIGHT AT BEDTIME, # 30 tab, 5 Refill(s), Pharmacy: [place] [address] atorvastati Yes See Memori a n 40 mg 3-21 Instructio l oral tablet 15:36: ns, TAKE 1 [place] 22 TABLET BY MOUTH EVERY NIGHT AT BEDTIME, # 30 tab, 5 Refill(s), Pharmacy: [place] [address] amLODIPine Yes See Memoria 5 mg oral 3-21 Instructio l tablet 15:36: ns, TAKE 1 Karen nn 18 TABLET BY MOUTH EVERY DAY, # 30 tab, 5 Refill(s), Pharmacy: [place] [address] amLODIPine Yes See Memoria 5 mg oral 3-21 Instructio l tablet 15:36: ns, TAKE 1 Karen nn 18 TABLET BY MOUTH EVERY DAY, # 30 tab, 5 Refill(s), Pharmacy: [facility] [place] [address] amLODIPine Yes See Memoria 5 mg oral 3-21 Instructio l tablet 15:36: ns, TAKE 1 Karen nn 18 TABLET BY MOUTH EVERY DAY, # 30 tab, 5 Refill(s), Pharmacy: [place] [address] amLODIPine Yes See Memoria 5 mg oral 3-21 Instructio l tablet 15:36: ns, TAKE 1 [place] nn 18 TABLET BY MOUTH EVERY DAY, # 30 tab, 5 Refill(s), Pharmacy: [place] [address] amLODIPine Yes See Memoria 5 mg oral 3-21 Instructio l tablet 15:36: ns, TAKE 1 [place] 18 TABLET BY MOUTH EVERY DAY, # 30 tab, 5 Refill(s), Pharmacy: [place] [address] amLODIPine Yes See Memoria 5 mg oral 3-21 Instructio l tablet 15:36: ns, TAKE 1 [place] nn 18 TABLET BY MOUTH EVERY DAY, # 30 tab, 5 Refill(s), Pharmacy: [place] [address] amLODIPine Yes See Memoria 5 mg oral 3-21 Instructio l tablet 15:36: ns, TAKE 1 [place] nn 18 TABLET BY MOUTH EVERY DAY, # 30 tab, 5 Refill(s), Pharmacy: [place] [address] amLODIPine Yes See Memoria 5 mg oral 3-21 Instructio l tablet 15:36: ns, TAKE 1 [place] nn 18 TABLET BY MOUTH EVERY DAY, # 30 tab, 5 Refill(s), Pharmacy: [place] [address] amLODIPine Yes See Memoria 5 mg oral 3-21 Instructio l tablet 15:36: ns, TAKE 1 [place] 18 TABLET BY MOUTH EVERY DAY, # 30 tab, 5 Refill(s), Pharmacy: [place] [address] amLODIPine Yes See Memoria 5 mg oral 3-21 Instructio l tablet 15:36: ns, TAKE 1 Karen nn 18 TABLET BY MOUTH EVERY DAY, # 30 tab, 5 Refill(s), Pharmacy: [place] [address] aspirin 81 2016- Yes 81 mg = [...] 00 Once, solution first dose 12/30/15 19:00:00 DISTRIBUTION ESTIMATOR, stop date 12/30/15 19:00:00 DISTRIBUTION ESTIMATOR Xopenex 0 No Kyle K 0.63 mg = Mem oria 0.63 mg/3 3-11 [place] 3 mL, l mL 01:00: Soln, NEB, [place] inhalation 00 Once, solution first dose 12/30/15 19:00:00 DISTRIBUTION ESTIMATOR, stop date 12/30/15 19:00:00 DISTRIBUTION ESTIMATOR Xopenex 0 No Kyle K 0.63 mg = Mem oria 0.63 mg/3 3-11 [place] 3 mL, l mL 01:00: Soln, NEB, [place] inhalation 00 Once, solution first dose 12/30/15 19:00:00 DISTRIBUTION ESTIMATOR, stop date 12/30/15 19:00:00 DISTRIBUTION ESTIMATOR Xopenex 2016-0 No Kyle K 0.63 mg = Mem oria 0.63 mg/3 3-11 [place] 3 mL, l mL 01:00: Soln, NEB, [place] inhalation 00 Once, solution first dose 12/30/15 19:00:00 DISTRIBUTION ESTIMATOR, stop date 12/30/15 19:00:00 DISTRIBUTION ESTIMATOR Xopenex No Kyle K 0.63 mg = Mem oria 0.63 mg/3 3-11 [place] 3 mL, l mL 01:00: Soln, NEB, [place] inhalation 00 Once, solution first dose 12/30/15 19:00:00 DISTRIBUTION ESTIMATOR, stop date 12/30/15 19:00:00 DISTRIBUTION ESTIMATOR Xopenex No Kyle K 0.63 mg = Mem oria 0.63 mg/3 3-11 [place] 3 mL, l mL 01:00: Soln, NEB, [place] inhalation 00 Once, solution first dose 12/30/15 19:00:00 DISTRIBUTION ESTIMATOR, stop date 12/30/15 19:00:00 DISTRIBUTION ESTIMATOR Xopenex 0 No Kyle K 0.63 mg = Mem oria 0.63 mg/3 3-11 [place] 3 mL, l mL 01:00: Soln, NEB, [place] inhalation 00 Once, solution first dose 12/30/15 19:00:00 DISTRIBUTION ESTIMATOR, stop date 12/30/15 19:00:00 DISTRIBUTION ESTIMATOR Xopenex 0 No Kyle K 0.63 mg = Mem oria 0.63 mg/3 3-11 [place] 3 mL, l mL 01:00: Soln, NEB, [place] inhalation 00 Once, solution first dose 12/30/15 19:00:00 DISTRIBUTION ESTIMATOR, stop date 12/30/15 19:00:00 DISTRIBUTION ESTIMATOR Xopenex 0 No Kyle K 0.63 mg = Mem oria 0.63 mg/3 3-11 Sil[place] 3 mL, l mL 01:00: Soln, NEB, [place] inhalation 00 Once, solution first dose 12/30/15 19:00:00 DISTRIBUTION ESTIMATOR, stop date 12/30/15 19:00:00 DISTRIBUTION ESTIMATOR Xopenex No Kyle K 0.63 mg = Mem oria 0.63 mg/3 3-11 [place] 3 mL, l mL 01:00: Soln, NEB, [place] inhalation 00 Once, solution first dose 12/30/15 19:00:00 DISTRIBUTION ESTIMATOR, stop date 12/30/15 19:00:[address] [facility] [place] 2016-0 No Perico 300 mL, Memoria Medication 3-11 Wheat Soln-IV, l 00:03: IV, Once, [place] 00 first dose 12/30/15 18:03:00 DISTRIBUTION ESTIMATOR, stop date 12/30/15 18:03:[address] [facility] [place] 2016-0 No [place] 300 mL, Memoria Medication 3-11 Wheat Soln-IV, l 00:03: IV, Once, [place] 00 first dose 12/30/15 18:03:00 DISTRIBUTION ESTIMATOR, stop date 12/30/15 18:03:[address] [facility] [place] 2015-0 No [place] 300 mL, Memoria Medication 3-11 [place] Soln-IV, l 00:03: IV, Once, Denis 00 first dose 12/30/15 18:03:00 DISTRIBUTION ESTIMATOR, stop date 12/30/15 18:03:[address] [facility] [place] 2016-0 No [place] 300 mL, Memoria Medication 3-11 [place] Soln-IV, l 00:03: IV, Once, [place] 00 first dose 12/30/15 18:03:00 DISTRIBUTION ESTIMATOR, stop date 12/30/15 18:03:[address] [facility] [place] 2015-0 No [place] 300 mL, Memoria Medication 3-11 [place] Soln-IV, l 00:03: IV, Once, Denis 00 first dose 12/30/15 18:03:00 DISTRIBUTION ESTIMATOR, stop date 12/30/15 18:03:[address] [facility] [place] 2016-0 No [place] 300 mL, Memoria Medication 3-11 [place] Soln-IV, l 00:03: IV, Once, [place] 00 first dose 12/30/15 18:03:00 DISTRIBUTION ESTIMATOR, stop date 12/30/15 18:03:[address] [facility] [place] 2015-0 No [place] 300 mL, Memoria Medication 3-11 [place] Soln-IV, l 00:03: IV, Once, [place] 00 first dose 12/30/15 18:03:00 DISTRIBUTION ESTIMATOR, stop date 12/30/15 18:03:[address] [facility] [place] 2016-0 No [place] 300 mL, Memoria Medication 3-11 [place] Soln-IV, l 00:03: IV, Once, Denis 00 first dose 12/30/15 18:03:00 DISTRIBUTION ESTIMATOR, stop date 12/30/15 18:03:00 DISTRIBUTION ESTIMATOR Misc No [place] 300 mL, Memoria Medication 3-11 [place] Soln-IV, l 00:03: IV, Once, [place] 00 first dose 12/30/15 18:03:00 DISTRIBUTION ESTIMATOR, stop date 12/30/15 18:03:00 DISTRIBUTION ESTIMATOR Misc No [place] 300 mL, Memoria Medication 3-11 [place] Soln-IV, l 00:03: IV, Once, Denis 00 first dose 12/30/15 18:03:00 DISTRIBUTION ESTIMATOR, stop date 12/30/15 18:03:00 DISTRIBUTION ESTIMATOR promethazin No Kyle K 12.5 mg = Memoria e 3-11 [place] 0.5 mL, l 00:02: Injection, Denis 00 IM, Once PRN for severe nausea, first dose 12/30/15 18:02:00 DISTRIBUTION ESTIMATOR albuterol No Kyle K 2.5 mg = 3 Memoria 2.5 mg/3 mL 3-11 [place] mL, Soln, l (0.083%) 00:02: NEB, Once Herm connie inhalation 00 PRN for solution wheezing, first dose 12/30/15 18:02:00 DISTRIBUTION ESTIMATOR Demerol HCl No Kyle K 12.5 mg = Memoria 3-11 [place] 0.25 mL, l 00:02: Injection, Denis 00 IV Push, Once PRN for shivers, first dose 12/30/15 18:02:00 DISTRIBUTION ESTIMATOR ondansetron No Kyle K 4 mg = 2 Memoria 3-11 [place] mL, l 00:02: Injection, Denis 00 IV Push, q15min PRN for nausea/vom iting, order duration: 2 doses, first dose 12/30/15 18:02:00 DISTRIBUTION ESTIMATOR, stop date Limited # of times Dilaudid No Kyle K 0.5 mg = Mem oria 3-11 [place] 0.25 mL, l 00:02: Injection, Denis 00 IV Push, q10min PRN for pain severe (7-10), first dose 12/30/15 18:02:00 DISTRIBUTION ESTIMATOR diphenhydrA No Kyle K 25 mg = M emoria MINE 3-11 Silvestre 0.5 mL, l 00:02: Injection, [place] 00 IV Push, Once PRN for itching, first dose 12/30/15 18:02:00 DISTRIBUTION ESTIMATOR LR 1,000 mL No Kyle K 1,000 mL, Memoria 3-11 Silvestre IV, 75 l 00:02: mL/hr, [place] 00 start date 12/30/15 18:02:00 DISTRIBUTION ESTIMATOR Saline Lock No Kyle K 10 mL, Me moria Flush 3-11 Silvestre Soln, IV l 00:02: Push, As Denis 00 Indicated PRN for flush, first dose 12/30/15 18:02:00 DISTRIBUTION ESTIMATOR Bupivacaine No Kyle K 300 mL, M emoria 0.25% 300 3-11 Sil[place] Nerve l mL pump 300 00:02: Block, 5 He rmann mL 00 mL/hr, start date 12/30/15 18:02:00 DISTRIBUTION ESTIMATOR promethazin No Kyle K 12.5 mg = Memoria e 3-11 [place] 0.5 mL, l 00:02: Injection, [place] 00 IM, Once PRN for severe nausea, first dose 12/30/15 18:02:00 DISTRIBUTION ESTIMATOR albuterol No Kyle K 2.5 mg = 3 Memoria 2.5 mg/3 mL 3-11 Sil[place] mL, Soln, l (0.083%) 00:02: NEB, Once Herm connie inhalation 00 PRN for solution wheezing, first dose 12/30/15 18:02:00 DISTRIBUTION ESTIMATOR Demerol HCl No Kyle K 12.5 mg = Memoria 3-11 [place] 0.25 mL, l 00:02: Injection, [place] 00 IV Push, Once PRN for shivers, first dose 12/30/15 18:02:00 DISTRIBUTION ESTIMATOR ondansetron No Kyle K 4 mg = 2 Memoria 3-11 [place] mL, l 00:02: Injection, [place] 00 IV Push, q15min PRN for nausea/vom iting, order duration: 2 doses, first dose 12/30/15 18:02:00 DISTRIBUTION ESTIMATOR, stop date Limited # of times Dilaudid No Kyle K 0.5 mg = Mem oria 3-11 [place] 0.25 mL, l 00:02: Injection, [place] 00 IV Push, q10min PRN for pain severe (7-10), first dose 12/30/15 18:02:00 DISTRIBUTION ESTIMATOR diphenhydrA No Kyle K 25 mg = M emoria MINE 3-11 [place] 0.5 mL, l 00:02: Injection, [place] 00 IV Push, Once PRN for itching, first dose 12/30/15 18:02:00 DISTRIBUTION ESTIMATOR LR 1,000 mL No Kyle K 1,000 mL, Memoria 3-11 Silvestre IV, 75 l 00:02: mL/hr, [place] 00 start date 12/30/15 18:02:00 DISTRIBUTION ESTIMATOR Saline Lock No Kyle K 10 mL, Me moria Flush 3-11 Silvestre Soln, IV l 00:02: Push, As [place] 00 Indicated PRN for flush, first dose 12/30/15 18:02:00 DISTRIBUTION ESTIMATOR Bupivacaine No Kyle K 300 mL, M emoria 0.25% 300 3-11 [place] Nerve l mL pump 300 00:02: Block, 5 He rmann mL 00 mL/hr, start date 12/30/15 18:02:00 DISTRIBUTION ESTIMATOR promethazin No Kyle K 12.5 mg = Memoria e 3-11 [place] 0.5 mL, l 00:02: Injection, [place] 00 IM, Once PRN for severe nausea, first dose 12/30/15 18:02:00 DISTRIBUTION ESTIMATOR albuterol No Kyle K 2.5 mg = 3 Memoria 2.5 mg/3 mL 3-11 [place] mL, Soln, l (0.083%) 00:02: NEB, Once Herm connie inhalation 00 PRN for solution wheezing, first dose 12/30/15 18:02:00 DISTRIBUTION ESTIMATOR Demerol HCl No Kyle K 12.5 mg = Memoria 3-11 [place] 0.25 mL, l 00:02: Injection, [place] 00 IV Push, Once PRN for shivers, first dose 12/30/15 18:02:00 DISTRIBUTION ESTIMATOR ondansetron No Kyle K 4 mg = 2 Memoria 3-11 [place] mL, l 00:02: Injection, [place] 00 IV Push, q15min PRN for nausea/vom iting, order duration: 2 doses, first dose 12/30/15 18:02:00 DISTRIBUTION ESTIMATOR, stop date Limited # of times Dilaudid No Kyle K 0.5 mg = Mem oria 3-11 [place] 0.25 mL, l 00:02: Injection, [place] 00 IV Push, q10min PRN for pain severe (7-10), first dose 12/30/15 18:02:00 DISTRIBUTION ESTIMATOR diphenhydrA No Kyle K 25 mg = M emoria MINE 3-11 [place] 0.5 mL, l 00:02: Injection, [place] 00 IV Push, Once PRN for itching, first dose 12/30/15 18:02:00 DISTRIBUTION ESTIMATOR LR 1,000 mL No Kyle K 1,000 mL, Memoria 3-11 [place] IV, 75 l 00:02: mL/hr, [place] 00 start date 12/30/15 18:02:00 DISTRIBUTION ESTIMATOR Saline Lock No Kyle K 10 mL, Me moria Flush 3-11 Sil[place] Soln, IV l 00:02: Push, As [place] 00 Indicated PRN for flush, first dose 12/30/15 18:02:00 DISTRIBUTION ESTIMATOR Bupivacaine No Kyle K 300 mL, M emoria 0.25% 300 3-11 [place] Nerve l mL pump 300 00:02: Block, 5 He rmann mL 00 mL/hr, start date 12/30/15 18:02:00 DISTRIBUTION ESTIMATOR promethazin No Kyle K 12.5 mg = Memoria e 3-11 [place] 0.5 mL, l 00:02: Injection, [place] 00 IM, Once PRN for severe nausea, first dose 12/30/15 18:02:00 DISTRIBUTION ESTIMATOR albuterol No Kyle K 2.5 mg = 3 Memoria 2.5 mg/3 mL 3-11 [place] mL, Soln, l (0.083%) 00:02: NEB, Once Herm connie inhalation 00 PRN for solution wheezing, first dose 12/30/15 18:02:00 DISTRIBUTION ESTIMATOR Demerol HCl No Kyle K 12.5 mg = Memoria 3-11 [place] 0.25 mL, l 00:02: Injection, [place] 00 IV Push, Once PRN for shivers, first dose 12/30/15 18:02:00 DISTRIBUTION ESTIMATOR ondansetron No Kyle K 4 mg = 2 Memoria 3-11 [place] mL, l 00:02: Injection, [place] 00 IV Push, q15min PRN for nausea/vom iting, order duration: 2 doses, first dose 12/30/15 18:02:00 DISTRIBUTION ESTIMATOR, stop date Limited # of times Dilaudid No Kyle K 0.5 mg = Mem oria 3-11 [place] 0.25 mL, l 00:02: Injection, [place] 00 IV Push, q10min PRN for pain severe (7-10), first dose 12/30/15 18:02:00 DISTRIBUTION ESTIMATOR diphenhydrA No Kyle K 25 mg = M emoria MINE 3-11 [place] 0.5 mL, l 00:02: Injection, [place] 00 IV Push, Once PRN for itching, first dose 12/30/15 18:02:00 DISTRIBUTION ESTIMATOR LR 1,000 mL No Kyle K 1,000 mL, Memoria 3-11 Silvest[place] IV, 75 l 00:02: mL/hr, [place] 00 start date 12/30/15 18:02:00 DISTRIBUTION ESTIMATOR Saline Lock No Kyle K 10 mL, Me moria Flush 3-11 Silvestre Soln, IV l 00:02: Push, As [place] 00 Indicated PRN for flush, first dose 12/30/15 18:02:00 DISTRIBUTION ESTIMATOR Bupivacaine No Kyle K 300 mL, M emoria 0.25% 300 3-11 [place] Nerve l mL pump 300 00:02: Block, 5 He r[place] mL 00 mL/hr, start date 12/30/15 18:02:00 DISTRIBUTION ESTIMATOR promethazin No Kyle K 12.5 mg = Memoria e 3-11 [place] 0.5 mL, l 00:02: Injection, [place] 00 IM, Once PRN for severe nausea, first dose 12/30/15 18:02:00 DISTRIBUTION ESTIMATOR albuterol No Kyle K 2.5 mg = 3 Memoria 2.5 mg/3 mL 3-11 [place] mL, Soln, l (0.083%) 00:02: NEB, Once Herm connie inhalation 00 PRN for solution wheezing, first dose 12/30/15 18:02:00 DISTRIBUTION ESTIMATOR Demerol HCl No Kyle K 12.5 mg = Memoria 3-11 [place] 0.25 mL, l 00:02: Injection, [place] 00 IV Push, Once PRN for shivers, first dose 12/30/15 18:02:00 DISTRIBUTION ESTIMATOR ondansetron No Kyle K 4 mg = 2 Memoria 3-11 [place] mL, l 00:02: Injection, [place] 00 IV Push, q15min PRN for nausea/vom iting, order duration: 2 doses, first dose 12/30/15 18:02:00 DISTRIBUTION ESTIMATOR, stop date Limited # of times Dilaudid No Kyle K 0.5 mg = Mem oria 3-11 [place] 0.25 mL, l 00:02: Injection, [place] 00 IV Push, q10min PRN for pain severe (7-10), first dose 12/30/15 18:02:00 DISTRIBUTION ESTIMATOR diphenhydrA No Kyle K 25 mg = M emoria MINE 3-11 [place] 0.5 mL, l 00:02: Injection, [place] 00 IV Push, Once PRN for itching, first dose 12/30/15 18:02:00 DISTRIBUTION ESTIMATOR LR 1,000 mL No Kyle K 1,000 mL, Memoria 3-11 Silvestre IV, 75 l 00:02: mL/hr, [place] 00 start date 12/30/15 18:02:00 DISTRIBUTION ESTIMATOR Saline Lock No Kyle K 10 mL, Me moria Flush 3-11 Silvestre Soln, IV l 00:02: Push, As [place] 00 Indicated PRN for flush, first dose 12/30/15 18:02:00 DISTRIBUTION ESTIMATOR Bupivacaine No Kyle K 300 mL, M emoria 0.25% 300 3-11 Sil[place] Nerve l mL pump 300 00:02: Block, 5 He rmann mL 00 mL/hr, start date 12/30/15 18:02:00 DISTRIBUTION ESTIMATOR promethazin No Kyle K 12.5 mg = Memoria e 3-11 [place] 0.5 mL, l 00:02: Injection, [place] 00 IM, Once PRN for severe nausea, first dose 12/30/15 18:02:00 DISTRIBUTION ESTIMATOR albuterol No Kyle K 2.5 mg = 3 Memoria 2.5 mg/3 mL 3-11 Sil[place] mL, Soln, l (0.083%) 00:02: NEB, Once Herm connie inhalation 00 PRN for solution wheezing, first dose 12/30/15 18:02:00 DISTRIBUTION ESTIMATOR Demerol HCl No Kyle K 12.5 mg = Memoria 3-11 [place] 0.25 mL, l 00:02: Injection, [place] 00 IV Push, Once PRN for shivers, first dose 12/30/15 18:02:00 DISTRIBUTION ESTIMATOR ondansetron No Kyle K 4 mg = 2 Memoria 3-11 Sil[place] mL, l 00:02: Injection, [place] 00 IV Push, q15min PRN for nausea/vom iting, order duration: 2 doses, first dose 12/30/15 18:02:00 DISTRIBUTION ESTIMATOR, stop date Limited # of times Dilaudid No Kyle K 0.5 mg = Mem oria 3-11 [place] 0.25 mL, l 00:02: Injection, [place] 00 IV Push, q10min PRN for pain severe (7-10), first dose 12/30/15 18:02:00 DISTRIBUTION ESTIMATOR diphenhydrA No Kyle K 25 mg = M emoria MINE 3-11 [place] 0.5 mL, l 00:02: Injection, [place] 00 IV Push, Once PRN for itching, first dose 12/30/15 18:02:00 DISTRIBUTION ESTIMATOR LR 1,000 mL No Kyle K 1,000 mL, Memoria 3-11 Silvestre IV, 75 l 00:02: mL/hr, [place] 00 start date 12/30/15 18:02:00 DISTRIBUTION ESTIMATOR Saline Lock No Kyle K 10 mL, Me moria Flush 3-11 Silvestre Soln, IV l 00:02: Push, As [place] 00 Indicated PRN for flush, first dose 12/30/15 18:02:00 DISTRIBUTION ESTIMATOR Bupivacaine No Kyle K 300 mL, M emoria 0.25% 300 3-11 Sil[place] Nerve l mL pump 300 00:02: Block, 5 He rmann mL 00 mL/hr, start date 12/30/15 18:02:00 DISTRIBUTION ESTIMATOR promethazin No Kyle K 12.5 mg = Memoria e 3-11 [place] 0.5 mL, l 00:02: Injection, [place] 00 IM, Once PRN for severe nausea, first dose 12/30/15 18:02:00 DISTRIBUTION ESTIMATOR albuterol No Kyle K 2.5 mg = 3 Memoria 2.5 mg/3 mL 3-11 [place] mL, Soln, l (0.083%) 00:02: NEB, Once Herm connie inhalation 00 PRN for solution wheezing, first dose 12/30/15 18:02:00 DISTRIBUTION ESTIMATOR Demerol HCl No Kyle K 12.5 mg = Memoria 3-11 [place] 0.25 mL, l 00:02: Injection, [place] 00 IV Push, Once PRN for shivers, first dose 12/30/15 18:02:00 DISTRIBUTION ESTIMATOR ondansetron No Kyle K 4 mg = 2 Memoria 3-11 [place] mL, l 00:02: Injection, [place] 00 IV Push, q15min PRN for nausea/vom iting, order duration: 2 doses, first dose 12/30/15 18:02:00 DISTRIBUTION ESTIMATOR, stop date Limited # of times Dilaudid No Kyle K 0.5 mg = Mem oria 3-11 [place] 0.25 mL, l 00:02: Injection, [place] 00 IV Push, q10min PRN for pain severe (7-10), first dose 12/30/15 18:02:00 DISTRIBUTION ESTIMATOR diphenhydrA No Kyle K 25 mg = M emoria MINE 3-11 [place] 0.5 mL, l 00:02: Injection, [place] 00 IV Push, Once PRN for itching, first dose 12/30/15 18:02:00 DISTRIBUTION ESTIMATOR LR 1,000 mL No Kyle K 1,000 mL, Memoria 3-11 Silvestre IV, 75 l 00:02: mL/hr, [place] start date 12/30/15 18:02:00 DISTRIBUTION ESTIMATOR Saline Lock No Kyle K 10 mL, Me moria Flush 3-11 Silvestre Soln, IV l 00:02: Push, As [place] 00 Indicated PRN for flush, first dose 12/30/15 18:02:00 DISTRIBUTION ESTIMATOR Bupivacaine No Kyle K 300 mL, M emoria 0.25% 300 3-11 Sil[place] Nerve l mL pump 300 00:02: Block, 5 He r[place] mL 00 mL/hr, start date 12/30/15 18:02:00 DISTRIBUTION ESTIMATOR promethazin No Kyle K 12.5 mg = Memoria e 3-11 [place] 0.5 mL, l 00:02: Injection, [place] 00 IM, Once PRN for severe nausea, first dose 12/30/15 18:02:00 DISTRIBUTION ESTIMATOR albuterol No Kyle K 2.5 mg = 3 Memoria 2.5 mg/3 mL 3-11 [place] mL, Soln, l (0.083%) 00:02: NEB, Once Herm connie inhalation 00 PRN for solution wheezing, first dose 12/30/15 18:02:00 DISTRIBUTION ESTIMATOR Demerol HCl No Kyle K 12.5 mg = Memoria 3-11 [place] 0.25 mL, l 00:02: Injection, [place] 00 IV Push, Once PRN for shivers, first dose 12/30/15 18:02:00 DISTRIBUTION ESTIMATOR ondansetron No Kyle K 4 mg = 2 Memoria 3-11 [place] mL, l 00:02: Injection, [place] 00 IV Push, q15min PRN for nausea/vom iting, order duration: 2 doses, first dose 12/30/15 18:02:00 DISTRIBUTION ESTIMATOR, stop date Limited # of times Dilaudid No Kyle K 0.5 mg = Mem oria 3-11 [place] 0.25 mL, l 00:02: Injection, [place] 00 IV Push, q10min PRN for pain severe (7-10), first dose 12/30/15 18:02:00 DISTRIBUTION ESTIMATOR diphenhydrA No Kyle K 25 mg = M emoria MINE 3-11 [place] 0.5 mL, l 00:02: Injection, [place] 00 IV Push, Once PRN for itching, first dose 12/30/15 18:02:00 DISTRIBUTION ESTIMATOR LR 1,000 mL No Kyle K 1,000 mL, Memoria 3-11 Silvestre IV, 75 l 00:02: mL/hr, [place] 00 start date 12/30/15 18:02:00 DISTRIBUTION ESTIMATOR Saline Lock No Kyle K 10 mL, Me moria Flush 3-11 Silvestre Soln, IV l 00:02: Push, As [place] 00 Indicated PRN for flush, first dose 12/30/15 18:02:00 DISTRIBUTION ESTIMATOR Bupivacaine No Kyle K 300 mL, M emoria 0.25% 300 3-11 Sil[place] Nerve l mL pump 300 00:02: Block, 5 He r[place] mL 00 mL/hr, start date 12/30/15 18:02:00 DISTRIBUTION ESTIMATOR promethazin No Kyle K 12.5 mg = Memoria e 3-11 [place] 0.5 mL, l 00:02: Injection, [place] 00 IM, Once PRN for severe nausea, first dose 12/30/15 18:02:00 DISTRIBUTION ESTIMATOR albuterol No Kyle K 2.5 mg = 3 Memoria 2.5 mg/3 mL 3-11 [place] mL, Soln, l (0.083%) 00:02: NEB, Once Herm connie inhalation 00 PRN for solution wheezing, first dose 12/30/15 18:02:00 DISTRIBUTION ESTIMATOR Demerol HCl No Kyle K 12.5 mg = Memoria 3-11 [place] 0.25 mL, l 00:02: Injection, [place] 00 IV Push, Once PRN for shivers, first dose 12/30/15 18:02:00 DISTRIBUTION ESTIMATOR ondansetron No Kyle K 4 mg = 2 Memoria 3-11 [place] mL, l 00:02: Injection, [place] 00 IV Push, q15min PRN for nausea/vom iting, order duration: 2 doses, first dose 12/30/15 18:02:00 DISTRIBUTION ESTIMATOR, stop date Limited # of times Dilaudid No Kyle K 0.5 mg = Mem oria 3-11 [place] 0.25 mL, l 00:02: Injection, [place] 00 IV Push, q10min PRN for pain severe (7-10), first dose 12/30/15 18:02:00 DISTRIBUTION ESTIMATOR diphenhydrA No Kyle K 25 mg = M emoria MINE 3-11 [place] 0.5 mL, l 00:02: Injection, [place] 00 IV Push, Once PRN for itching, first dose 12/30/15 18:02:00 DISTRIBUTION ESTIMATOR LR 1,000 mL No Kyle K 1,000 mL, Memoria 3-11 Silvestre IV, 75 l 00:02: mL/hr, [place] 00 start date 12/30/15 18:02:00 DISTRIBUTION ESTIMATOR Saline Lock No Kyle K 10 mL, Me moria Flush 3-11 Silvestre Soln, IV l 00:02: Push, As [place] 00 Indicated PRN for flush, first dose 12/30/15 18:02:00 DISTRIBUTION ESTIMATOR Bupivacaine No Kyle K 300 mL, M emoria 0.25% 300 3-11 [place] Nerve l mL pump 300 00:02: Block, 5 [place] r[place] mL 00 mL/hr, start date 12/30/15 18:02:00 DISTRIBUTION ESTIMATOR promethazin No Kyle K 12.5 mg = Memoria e 3-11 [place] 0.5 mL, l 00:02: Injection, [place] 00 IM, Once PRN for severe nausea, first dose 12/30/15 18:02:00 DISTRIBUTION ESTIMATOR albuterol No Kyle K 2.5 mg = 3 Memoria 2.5 mg/3 mL 3-11 [place] mL, Soln, l (0.083%) 00:02: NEB, Once Herm connie inhalation 00 PRN for solution wheezing, first dose 12/30/15 18:02:00 DISTRIBUTION ESTIMATOR Demerol HCl No Kyle K 12.5 mg = Memoria 3-11 [place] 0.25 mL, l 00:02: Injection, [place] 00 IV Push, Once PRN for shivers, first dose 12/30/15 18:02:00 DISTRIBUTION ESTIMATOR ondansetron No Kyle K 4 mg = 2 Memoria 3-11 [place] mL, l 00:02: Injection, [place] 00 IV Push, q15min PRN for nausea/vom iting, order duration: 2 doses, first dose 12/30/15 18:02:00 DISTRIBUTION ESTIMATOR, stop date Limited # of times Dilaudid No Kyle K 0.5 mg = Mem oria 3-11 [place] 0.25 mL, l 00:02: Injection, [place] 00 IV Push, q10min PRN for pain severe (7-10), first dose 12/30/15 18:02:00 DISTRIBUTION ESTIMATOR diphenhydrA No Kyle K 25 mg = M emoria MINE 3-11 [place] 0.5 mL, l 00:02: Injection, [place] 00 IV Push, Once PRN for itching, first dose 12/30/15 18:02:00 DISTRIBUTION ESTIMATOR LR 1,000 mL No Kyle K 1,000 mL, Memoria 3-11 Silvestre IV, 75 l 00:02: mL/hr, [place] 00 start date 12/30/15 18:02:00 DISTRIBUTION ESTIMATOR Saline Lock No Kyle K 10 mL, Me moria Flush 3-11 Silvestre Soln, IV l 00:02: Push, As Indicated PRN for flush, first dose 12/30/15 18:02:00 DISTRIBUTION ESTIMATOR Bupivacaine No Kyle K 300 mL, M emoria 0.25% 300 3-11 Sil[place] Nerve l mL pump 300 00:02: Block, 5 He rmann mL 00 mL/hr, start date 12/30/15 18:02:[address] [facility] [place] No Perico 1,000 mL, Memori a Medication 3-10 Wheat Soln-IV, l 23:42: IV, Once, first dose 12/30/15 17:42:00 DISTRIBUTION ESTIMATOR, stop date 12/30/15 17:42:[address] [facility] [place] No Perico 1,000 mL, Memori a Medication 3-10 Wheat Soln-IV, l 23:42: IV, Once, first dose 12/30/15 17:42:00 DISTRIBUTION ESTIMATOR, stop date 12/30/15 17:42:[address] [facility] [place] No Perico 1,000 mL, Memori a Medication 3-10 Wheat Soln-IV, l 23:42: IV, Once, first dose 12/30/15 17:42:00 DISTRIBUTION ESTIMATOR, stop date 12/30/15 17:42:[address] [facility] [place] No Perico 1,000 mL, Memori a Medication 3-10 Wheat Soln-IV, l 23:42: IV, Once, first dose 12/30/15 17:42:00 DISTRIBUTION ESTIMATOR, stop date 12/30/15 17:42:[address] [facility] [place] No Perico 1,000 mL, Memori a Medication 3-10 Wheat Soln-IV, l 23:42: IV, Once, [place] 00 first dose 12/30/15 17:42:00 DISTRIBUTION ESTIMATOR, stop date 12/30/15 17:42:[address] [facility] [place] No Perico 1,000 mL, Memori a Medication 3-10 Wheat Soln-IV, l 23:42: IV, Once, [place] 00 first dose 12/30/15 17:42:00 DISTRIBUTION ESTIMATOR, stop date 12/30/15 17:42:[address] [facility] [place] No Perico 1,000 mL, Memori a Medication 3-10 Wheat Soln-IV, l 23:42: IV, Once, [place] 00 first dose 12/30/15 17:42:00 DISTRIBUTION ESTIMATOR, stop date 12/30/15 17:42:[address] [facility] [place] No Perico 1,000 mL, Memori a Medication 3-10 Wheat Soln-IV, l 23:42: IV, Once, [place] 00 first dose 12/30/15 17:42:00 DISTRIBUTION ESTIMATOR, stop date 12/30/15 17:42:[address] [facility] [place] No Perico 1,000 mL, Memori a Medication 3-10 Wheat Soln-IV, l 23:42: IV, Once, [place] 00 first dose 12/30/15 17:42:00 DISTRIBUTION ESTIMATOR, stop date 12/30/15 17:42:[address] [facility] [place] No Perico 1,000 mL, Memori a Medication 3-10 Wheat Soln-IV, l 23:42: IV, Once, [place] 00 first dose 12/30/15 17:42:00 DISTRIBUTION ESTIMATOR, stop date 12/30/15 17:42:00 DISTRIBUTION ESTIMATOR fentaNYL 0 No Perico 25 mcg = Mem oria 3-10 Wheat 0.5 mL, l 23:20: Injection, [place] 00 IV, Once, first dose 12/30/15 17:20:00 DISTRIBUTION ESTIMATOR, stop date 12/30/15 17:20:00 DISTRIBUTION ESTIMATOR fentaNYL 2015-0 No [place]ico 25 mcg = Mem oria 3-10 Wheat 0.5 mL, l 23:20: Injection, [place] 00 IV, Once, first dose 12/30/15 17:20:00 DISTRIBUTION ESTIMATOR, stop date 12/30/15 17:20:00 DISTRIBUTION ESTIMATOR fentaNYL 2015-0 No [place] 25 mcg = Mem oria 3-10 [place] 0.5 mL, l 23:20: Injection, [place] 00 IV, Once, first dose 12/30/15 17:20:00 DISTRIBUTION ESTIMATOR, stop date 12/30/15 17:20:00 DISTRIBUTION ESTIMATOR fentaNYL 2015-0 No [place] 25 mcg = Mem oria 3-10 [place] 0.5 mL, l 23:20: Injection, [place] 00 IV, Once, first dose 12/30/15 17:20:00 DISTRIBUTION ESTIMATOR, stop date 12/30/15 17:20:00 DISTRIBUTION ESTIMATOR fentaNYL 2015- No [place] 25 mcg = Mem oria 3-10 [place] 0.5 mL, l 23:20: Injection, [place] 00 IV, Once, first dose 12/30/15 17:20:00 DISTRIBUTION ESTIMATOR, stop date 12/30/15 17:20:00 DISTRIBUTION ESTIMATOR fentaNYL 2015- No [place] 25 mcg = Mem oria 3-10 Wheat 0.5 mL, l 23:20: Injection, [place] 00 IV, Once, first dose 12/30/15 17:20:00 DISTRIBUTION ESTIMATOR, stop date 12/30/15 17:20:00 DISTRIBUTION ESTIMATOR fentaNYL 2015-0 No [place] 25 mcg = Mem oria 3-10 [place] 0.5 mL, l 23:20: Injection, [place] 00 IV, Once, first dose 12/30/15 17:20:00 DISTRIBUTION ESTIMATOR, stop date 12/30/15 17:20:00 DISTRIBUTION ESTIMATOR fentaNYL 2015-0 No [place] 25 mcg = Mem oria 3-10 Wheat 0.5 mL, l 23:20: Injection, [place] 00 IV, Once, first dose 12/30/15 17:20:00 DISTRIBUTION ESTIMATOR, stop date 12/30/15 17:20:00 DISTRIBUTION ESTIMATOR fentaNYL 2015-0 No [place] 25 mcg = Mem oria 3-10 Wheat 0.5 mL, l 23:20: Injection, Denis 00 IV, Once, first dose 12/30/15 17:20:00 DISTRIBUTION ESTIMATOR, stop date 12/30/15 17:20:00 DISTRIBUTION ESTIMATOR fentaNYL 2015-0 No [place] 25 mcg = Mem oria 3-10 [place] 0.5 mL, l 23:20: Injection, [place] 00 IV, Once, first dose 12/30/15 17:20:00 DISTRIBUTION ESTIMATOR, stop date 12/30/15 17:20:00 DISTRIBUTION ESTIMATOR ondansetron 2016-0 No [place] 4 mg = 2 Memoria 3-10 Wheat mL, l 23:03: Injection, [place] 00 IV, Once, first dose 12/30/15 17:03:00 DISTRIBUTION ESTIMATOR, stop date 12/30/15 17:03:00 DISTRIBUTION ESTIMATOR ondansetron 2016-0 No [place]ico 4 mg = 2 Memoria 3-10 [place] mL, l 23:03: Injection, [place] 00 IV, Once, first dose 12/30/15 17:03:00 DISTRIBUTION ESTIMATOR, stop date 12/30/15 17:03:00 DISTRIBUTION ESTIMATOR ondansetron 2016-0 No [place]ico 4 mg = 2 Memoria 3-10 [place] mL, l 23:03: Injection, [place] 00 IV, Once, first dose 12/30/15 17:03:00 DISTRIBUTION ESTIMATOR, stop date 12/30/15 17:03:00 DISTRIBUTION ESTIMATOR ondansetron 2016-0 No [place]ico 4 mg = 2 Memoria 3-10 [place] mL, l 23:03: Injection, [place] 00 IV, Once, first dose 12/30/15 17:03:00 DISTRIBUTION ESTIMATOR, stop date 12/30/15 17:03:00 DISTRIBUTION ESTIMATOR ondansetron 2016-0 No [place]ico 4 mg = 2 Memoria 3-10 Wheat mL, l 23:03: Injection, Denis 00 IV, Once, first dose 12/30/15 17:03:00 DISTRIBUTION ESTIMATOR, stop date 12/30/15 17:03:00 DISTRIBUTION ESTIMATOR ondansetron 2016-0 No Perico 4 mg = 2 Memoria 3-10 Wheat mL, l 23:03: Injection, Denis 00 IV, Once, first dose 12/30/15 17:03:00 DISTRIBUTION ESTIMATOR, stop date 12/30/15 17:03:00 DISTRIBUTION ESTIMATOR ondansetron 2016-0 No Perico 4 mg = 2 Memoria 3-10 [place] mL, l 23:03: Injection, [place] 00 IV, Once, first dose 12/30/15 17:03:00 DISTRIBUTION ESTIMATOR, stop date 12/30/15 17:03:00 DISTRIBUTION ESTIMATOR ondansetron 2016-0 No Perico 4 mg = 2 Memoria 3-10 Wheat mL, l 23:03: Injection, [place] 00 IV, Once, first dose 12/30/15 17:03:00 DISTRIBUTION ESTIMATOR, stop date 12/30/15 17:03:00 DISTRIBUTION ESTIMATOR ondansetron No Perico 4 mg = 2 Memoria 3-10 [place] mL, l 23:03: Injection, [place] 00 IV, Once, first dose 12/30/15 17:03:00 DISTRIBUTION ESTIMATOR, stop date 12/30/15 17:03:00 DISTRIBUTION ESTIMATOR ondansetron No [place] 4 mg = 2 [place] 3-10 Wheat mL, l 23:03: Injection, [place] 00 IV, Once, first dose 12/30/15 17:03:00 DISTRIBUTION ESTIMATOR, stop date 12/30/15 17:03:00 DISTRIBUTION ESTIMATOR fentaNYL No [place] 25 mcg = Mem [facility] 3-10 Wheat 0.5 mL, l 23:00: Injection, [place] 00 IV, Once, first dose 12/30/15 17:00:00 DISTRIBUTION ESTIMATOR, stop date 12/30/15 17:00:00 DISTRIBUTION ESTIMATOR fentaNYL No [place] 25 mcg = Mem [facility] 3-10 Wheat 0.5 mL, l 23:00: Injection, [place] 00 IV, Once, first dose 12/30/15 17:00:00 DISTRIBUTION ESTIMATOR, stop date 12/30/15 17:00:00 DISTRIBUTION ESTIMATOR fentaNYL No [place] 25 mcg = Mem [facility] 3-10 Wheat 0.5 mL, l 23:00: Injection, [place] 00 IV, Once, first dose 12/30/15 17:00:00 DISTRIBUTION ESTIMATOR, stop date 12/30/15 17:00:00 DISTRIBUTION ESTIMATOR fentaNYL No [place] 25 mcg = Mem [facility] 3-10 Wheat 0.5 mL, l 23:00: Injection, [place] 00 IV, Once, first dose 12/30/15 17:00:00 DISTRIBUTION ESTIMATOR, stop date 12/30/15 17:00:00 DISTRIBUTION ESTIMATOR fentaNYL No [place] 25 mcg = Mem [facility] 3-10 Wheat 0.5 mL, l 23:00: Injection, [place] 00 IV, Once, first dose 12/30/15 17:00:00 DISTRIBUTION ESTIMATOR, stop date 12/30/15 17:00:00 DISTRIBUTION ESTIMATOR fentaNYL 2016-0 No [place] 25 mcg = Mem [facility] 3-10 Wheat 0.5 mL, l 23:00: Injection, [place] 00 IV, Once, first dose 12/30/15 17:00:00 DISTRIBUTION ESTIMATOR, stop date 12/30/15 17:00:00 DISTRIBUTION ESTIMATOR fentaNYL 2016-0 No [place] 25 mcg = Mem [facility] 3-10 Wheat 0.5 mL, l 23:00: Injection, [place] 00 IV, Once, first dose 12/30/15 17:00:00 DISTRIBUTION ESTIMATOR, stop date 12/30/15 17:00:00 DISTRIBUTION ESTIMATOR fentaNYL 2015-0 No [place] 25 mcg = [facility] 3-10 Wheat 0.5 mL, l 23:00: Injection, [place] 00 IV, Once, first dose 12/30/15 17:00:00 DISTRIBUTION ESTIMATOR, stop date 12/30/15 17:00:00 DISTRIBUTION ESTIMATOR fentaNYL 2015-0 No [place] 25 mcg = [facility] 3-10 Wheat 0.5 mL, l 23:00: Injection, [place] 00 IV, Once, first dose 12/30/15 17:00:00 DISTRIBUTION ESTIMATOR, stop date 12/30/15 17:00:00 DISTRIBUTION ESTIMATOR fenta[facility]L 2015-0 No Perico 25 mcg = Mem oria 3-10 Wheat 0.5 mL, l 23:00: Injection, Denis 00 IV, Once, first dose 12/30/15 17:00:00 DISTRIBUTION ESTIMATOR, stop date 12/30/15 17:00:00 DISTRIBUTION ESTIMATOR fentaNYL 2015-0 No Perico 25 mcg = Mem oria 3-10 Wheat 0.5 mL, l 22:48: Injection, Denis 00 IV, Once, first dose 12/30/15 16:48:00 DISTRIBUTION ESTIMATOR, stop date 12/30/15 16:48:00 DISTRIBUTION ESTIMATOR fentaNYL 2015-0 No Perico 25 mcg = Mem oria 3-10 Wheat 0.5 mL, l 22:48: Injection, [place] 00 IV, Once, first dose 12/30/15 16:48:00 DISTRIBUTION ESTIMATOR, stop date 12/30/15 16:48:00 DISTRIBUTION ESTIMATOR fentaNYL 2016-0 No Perico 25 mcg = Mem oria 3-10 Wheat 0.5 mL, l 22:48: Injection, [place] 00 IV, Once, first dose 12/30/15 16:48:00 DISTRIBUTION ESTIMATOR, stop date 12/30/15 16:48:00 DISTRIBUTION ESTIMATOR fentaNYL 2016-0 No Perico 25 mcg = Mem oria 3-10 Wheat 0.5 mL, l 22:48: Injection, Denis 00 IV, Once, first dose 12/30/15 16:48:00 DISTRIBUTION ESTIMATOR, stop date 12/30/15 16:48:00 DISTRIBUTION ESTIMATOR fentaNYL 2016-0 No Perico 25 mcg = Mem oria 3-10 Wheat 0.5 mL, l 22:48: Injection, Denis 00 IV, Once, first dose 12/30/15 16:48:00 DISTRIBUTION ESTIMATOR, stop date 12/30/15 16:48:00 DISTRIBUTION ESTIMATOR fentaNYL 2016-0 No Perico 25 mcg = Mem oria 3-10 Wheat 0.5 mL, l 22:48: Injection, Denis 00 IV, Once, first dose 12/30/15 16:48:00 DISTRIBUTION ESTIMATOR, stop date 12/30/15 16:48:00 DISTRIBUTION ESTIMATOR fentaNYL 2016-0 No Perico 25 mcg = Mem oria 3-10 Wheat 0.5 mL, l 22:48: Injection, [place] 00 IV, Once, first dose 12/30/15 16:48:00 DISTRIBUTION ESTIMATOR, stop date 12/30/15 16:48:00 DISTRIBUTION ESTIMATOR fentaNYL 2016-0 No Perico 25 mcg = Mem oria 3-10 Wheat 0.5 mL, l 22:48: Injection, [place] 00 IV, Once, first dose 12/30/15 16:48:00 DISTRIBUTION ESTIMATOR, stop date 12/30/15 16:48:00 DISTRIBUTION ESTIMATOR fentaNYL 2016-0 No Perico 25 mcg = Mem oria 3-10 Wheat 0.5 mL, l 22:48: Injection, [place] 00 IV, Once, first dose 12/30/15 16:48:00 DISTRIBUTION ESTIMATOR, stop date 12/30/15 16:48:00 DISTRIBUTION ESTIMATOR fentaNYL 2016-0 No Perico 25 mcg = Mem oria 3-10 Wheat 0.5 mL, l 22:48: Injection, Denis 00 IV, Once, first dose 12/30/15 16:48:00 DISTRIBUTION ESTIMATOR, stop date 12/30/15 16:48:00 DISTRIBUTION ESTIMATOR fentaNYL 2016-0 No Perico 25 mcg = Mem oria 3-10 Wheat 0.5 mL, l 22:37: Injection, [place] 00 IV, Once, first dose 12/30/15 16:37:00 DISTRIBUTION ESTIMATOR, stop date 12/30/15 16:37:00 DISTRIBUTION ESTIMATOR fentaNYL 2015-0 No Perico 25 mcg = Mem oria 3-10 Wheat 0.5 mL, l 22:37: Injection, [place] 00 IV, Once, first dose 12/30/15 16:37:00 DISTRIBUTION ESTIMATOR, stop date 12/30/15 16:37:00 DISTRIBUTION ESTIMATOR fentaNYL 2015-0 No Perico 25 mcg = Mem oria 3-10 Wheat 0.5 mL, l 22:37: Injection, [place] 00 IV, Once, first dose 12/30/15 16:37:00 DISTRIBUTION ESTIMATOR, stop date 12/30/15 16:37:00 DISTRIBUTION ESTIMATOR fentaNYL 2015- No Perico 25 mcg = Mem oria 3-10 Wheat 0.5 mL, l 22:37: Injection, [place] 00 IV, Once, first dose 12/30/15 16:37:00 DISTRIBUTION ESTIMATOR, stop date 12/30/15 16:37:00 DISTRIBUTION ESTIMATOR fentaNYL 2015- No Perico 25 mcg = Mem oria 3-10 Wheat 0.5 mL, l 22:37: Injection, [place] 00 IV, Once, first dose 12/30/15 16:37:00 DISTRIBUTION ESTIMATOR, stop date 12/30/15 16:37:00 DISTRIBUTION ESTIMATOR fentaNYL 2015- No Perico 25 mcg = Mem oria 3-10 Wheat 0.5 mL, l 22:37: Injection, [place] 00 IV, Once, first dose 12/30/15 16:37:00 DISTRIBUTION ESTIMATOR, stop date 12/30/15 16:37:00 DISTRIBUTION ESTIMATOR fentaNYL 2015-0 No Perico 25 mcg = Mem oria 3-10 Wheat 0.5 mL, l 22:37: Injection, [place] 00 IV, Once, first dose 12/30/15 16:37:00 DISTRIBUTION ESTIMATOR, stop date 12/30/15 16:37:00 DISTRIBUTION ESTIMATOR fentaNYL 2015-0 No Perico 25 mcg = Mem oria 3-10 Wheat 0.5 mL, l 22:37: Injection, [place] 00 IV, Once, first dose 12/30/15 16:37:00 DISTRIBUTION ESTIMATOR, stop date 12/30/15 16:37:00 DISTRIBUTION ESTIMATOR fentaNYL 2015-0 No Perico 25 mcg = Mem oria 3-10 Wheat 0.5 mL, l 22:37: Injection, [place] 00 IV, Once, first dose 12/30/15 16:37:00 DISTRIBUTION ESTIMATOR, stop date 12/30/15 16:37:00 DISTRIBUTION ESTIMATOR fentaNYL 2016-0 No Perico 25 mcg = Mem oria 3-10 Wheat 0.5 mL, l 22:37: Injection, [place] 00 IV, Once, first dose 12/30/15 16:37:00 DISTRIBUTION ESTIMATOR, stop date 12/30/15 16:37:00 DISTRIBUTION ESTIMATOR dexamethaso 2016-0 No Perico 8 mg = 2 Memoria ne 3-10 Wheat mL, l 22:23: Injection, [place] 00 IV, Once, first dose 12/30/15 16:23:00 DISTRIBUTION ESTIMATOR, stop date 12/30/15 16:23:00 DISTRIBUTION ESTIMATOR dexamethaso 2016-0 No Perico 8 mg = 2 Memoria ne 3-10 Wheat mL, l 22:23: Injection, [place] 00 IV, Once, first dose 12/30/15 16:23:00 DISTRIBUTION ESTIMATOR, stop date 12/30/15 16:23:00 DISTRIBUTION ESTIMATOR dexamethaso 2016-0 No Perico 8 mg = 2 Memoria ne 3-10 Wheat mL, l 22:23: Injection, [place] 00 IV, Once, first dose 12/30/15 16:23:00 DISTRIBUTION ESTIMATOR, stop date 12/30/15 16:23:00 DISTRIBUTION ESTIMATOR dexamethaso 2016-0 No Perico 8 mg = 2 Memoria ne 3-10 Wheat mL, l 22:23: Injection, [place] 00 IV, Once, first dose 12/30/15 16:23:00 DISTRIBUTION ESTIMATOR, stop date 12/30/15 16:23:00 DISTRIBUTION ESTIMATOR dexamethaso 2016-0 No Perico 8 mg = 2 Memoria ne 3-10 Wheat mL, l 22:23: Injection, [place] 00 IV, Once, first dose 12/30/15 16:23:00 DISTRIBUTION ESTIMATOR, stop date 12/30/15 16:23:00 DISTRIBUTION ESTIMATOR dexamethaso 2016-0 No Perico 8 mg = 2 Memoria ne 3-10 Wheat mL, l 22:23: Injection, [place] 00 IV, Once, first dose 12/30/15 16:23:00 DISTRIBUTION ESTIMATOR, stop date 12/30/15 16:23:00 DISTRIBUTION ESTIMATOR dexamethaso 2016-0 No Perico 8 mg = 2 Memoria ne 3-10 Wheat mL, l 22:23: Injection, [place] 00 IV, Once, first dose 12/30/15 16:23:00 DISTRIBUTION ESTIMATOR, stop date 12/30/15 16:23:00 DISTRIBUTION ESTIMATOR dexamethaso 2015-0 No Perico 8 mg = 2 Memoria ne 3-10 Wheat mL, l 22:23: Injection, [place] 00 IV, Once, first dose 12/30/15 16:23:00 DISTRIBUTION ESTIMATOR, stop date 12/30/15 16:23:00 DISTRIBUTION ESTIMATOR dexamethaso 2015-0 No Perico 8 mg = 2 Memoria ne 3-10 Wheat mL, l 22:23: Injection, [place] 00 IV, Once, first dose 12/30/15 16:23:00 DISTRIBUTION ESTIMATOR, stop date 12/30/15 16:23:00 DISTRIBUTION ESTIMATOR dexamethaso 2015-0 No Perico 8 mg = 2 Memoria ne 3-10 Wheat mL, l 22:23: Injection, [place] 00 IV, Once, first dose 12/30/15 16:23:00 DISTRIBUTION ESTIMATOR, stop date 12/30/15 16:23:[address] [facility] [place] 0 No Perico 1,000 mL, Memori a Medication 3-10 Wheat Soln-IV, l 22:21: IV, Once, first dose 12/30/15 16:21:00 DISTRIBUTION ESTIMATOR, stop date 12/30/15 16:21:[address] [facility] [place] 2015-0 No Perico 1,000 mL, Memori a Medication 3-10 Wheat Soln-IV, l 22:21: IV, Once, first dose 12/30/15 16:21:00 DISTRIBUTION ESTIMATOR, stop date 12/30/15 16:21:[address] [facility] [place] 2015-0 No Perico 1,000 mL, Memori a Medication 3-10 Wheat Soln-IV, l 22:21: IV, Once, first dose 12/30/15 16:21:00 DISTRIBUTION ESTIMATOR, stop date 12/30/15 16:21:[address] [facility] [place] 2015-0 No Perico 1,000 mL, Memori a Medication 3-10 Wheat Soln-IV, l 22:21: IV, Once, first dose 12/30/15 16:21:00 DISTRIBUTION ESTIMATOR, stop date 12/30/15 16:21:[address] [facility] [place] 2016-0 No Perico 1,000 mL, Memori a Medication 3-10 Wheat Soln-IV, l 22:21: IV, Once, [place] 00 first dose 12/30/15 16:21:00 DISTRIBUTION ESTIMATOR, stop date 12/30/15 16:21:[address] [facility] [place] 2016-0 No Perico 1,000 mL, Memori a Medication 3-10 Wheat Soln-IV, l 22:21: IV, Once, [place] 00 first dose 12/30/15 16:21:00 DISTRIBUTION ESTIMATOR, stop date 12/30/15 16:21:[address] [facility] [place] 2016-0 No Perico 1,000 mL, Memori a Medication 3-10 Wheat Soln-IV, l 22:21: IV, Once, [place] 00 first dose 12/30/15 16:21:00 DISTRIBUTION ESTIMATOR, stop date 12/30/15 16:21:[address] [facility] [place] 2016-0 No Perico 1,000 mL, Memori a Medication 3-10 Wheat Soln-IV, l 22:21: IV, Once, [place] 00 first dose 12/30/15 16:21:00 DISTRIBUTION ESTIMATOR, stop date 12/30/15 16:21:[address] [facility] [place] 2015-0 No Perico 1,000 mL, Memori a Medication 3-10 Wheat Soln-IV, l 22:21: IV, Once, [place] 00 first dose 12/30/15 16:21:00 DISTRIBUTION ESTIMATOR, stop date 12/30/15 16:21:[address] [facility] [place] 2015-0 No Perico 1,000 mL, Memori a Medication 3-10 Wheat Soln-IV, l 22:21: IV, Once, [place] 00 first dose 12/30/15 16:21:00 DISTRIBUTION ESTIMATOR, stop date 12/30/15 16:21:00 DISTRIBUTION ESTIMATOR clindamycin 2015-0 Yes [place] 928.125 M emoria 3-10 Wheat mg, l 22:18: Soln-IV, [place] 00 IV, Once, first dose 12/30/15 16:18:00 DISTRIBUTION ESTIMATOR, stop date 12/30/15 16:18:00 DISTRIBUTION ESTIMATOR clindamycin 2015-0 Yes [place] 928.125 M emoria 3-10 Wheat mg, l 22:18: Soln-IV, [place] 00 IV, Once, first dose 12/30/15 16:18:00 DISTRIBUTION ESTIMATOR, stop date 12/30/15 16:18:00 DISTRIBUTION ESTIMATOR clindamycin 2016-0 Yes Per[place] 928.125 M emoria 3-10 Wheat mg, l 22:18: Soln-IV, [place] 00 IV, Once, first dose 12/30/15 16:18:00 DISTRIBUTION ESTIMATOR, stop date 12/30/15 16:18:00 DISTRIBUTION ESTIMATOR clindamycin 2015-0 Yes [place] 928.125 M emoria 3-10 Wheat mg, l 22:18: Soln-IV, [place] 00 IV, Once, first dose 12/30/15 16:18:00 DISTRIBUTION ESTIMATOR, stop date 12/30/15 16:18:00 DISTRIBUTION ESTIMATOR clindamycin 2015-0 Yes Perico 928.125 M emoria 3-10 Wheat mg, l 22:18: Soln-IV, [place] 00 IV, Once, first dose 12/30/15 16:18:00 DISTRIBUTION ESTIMATOR, stop date 12/30/15 16:18:00 DISTRIBUTION ESTIMATOR clindamycin 2015-0 Yes Perico 928.125 M emoria 3-10 Wheat mg, l 22:18: Soln-IV, [place] 00 IV, Once, first dose 12/30/15 16:18:00 DISTRIBUTION ESTIMATOR, stop date 12/30/15 16:18:00 DISTRIBUTION ESTIMATOR clindamycin 2015-0 Yes Per[place] 928.125 M emoria 3-10 Wheat mg, l 22:18: Soln-IV, [place] 00 IV, Once, first dose 12/30/15 16:18:00 DISTRIBUTION ESTIMATOR, stop date 12/30/15 16:18:00 DISTRIBUTION ESTIMATOR clindamycin 2015-0 Yes Per[place] 928.125 M emoria 3-10 Wheat mg, l 22:18: Soln-IV, [place] 00 IV, Once, first dose 12/30/15 16:18:00 DISTRIBUTION ESTIMATOR, stop date 12/30/15 16:18:00 DISTRIBUTION ESTIMATOR clindamycin 2015-0 Yes Per[place] 928.125 M emoria 3-10 Wheat mg, l 22:18: Soln-IV, [place] 00 IV, Once, first dose 12/30/15 16:18:00 DISTRIBUTION ESTIMATOR, stop date 12/30/15 16:18:00 DISTRIBUTION ESTIMATOR clindamycin 2015- Yes Per[place] 928.125 M emoria 3-10 Wheat mg, l 22:18: Soln-IV, [place] 00 IV, Once, first dose 12/30/15 16:18:00 DISTRIBUTION ESTIMATOR, stop date 12/30/15 16:18:00 DISTRIBUTION ESTIMATOR fenta[facility] No Perico 25 mcg = Mem oria 3-10 Wheat 0.5 mL, l 22:05: Injection, [place] 00 IV, Once, first dose 12/30/15 16:05:00 DISTRIBUTION ESTIMATOR, stop date 12/30/15 16:05:00 DISTRIBUTION ESTIMATOR midazolam No [place] 0.5 mg = Me moria 3-10 Wheat 0.5 mL, l 22:05: Injection, [place] 00 IV, Once, first dose 12/30/15 16:05:00 DISTRIBUTION ESTIMATOR, stop date 12/30/15 16:05:00 DISTRIBUTION ESTIMATOR fenta[facility]L No Perico 25 mcg = Mem oria 3-10 Wheat 0.5 mL, l 22:05: Injection, [place] 00 IV, Once, first dose 12/30/15 16:05:00 DISTRIBUTION ESTIMATOR, stop date 12/30/15 16:05:00 DISTRIBUTION ESTIMATOR midazolam No [place] 0.5 mg = Me moria 3-10 Wheat 0.5 mL, l 22:05: Injection, [place] 00 IV, Once, first dose 12/30/15 16:05:00 DISTRIBUTION ESTIMATOR, stop date 12/30/15 16:05:00 DISTRIBUTION ESTIMATOR fenta[facility]L No Perico 25 mcg = Mem oria 3-10 Wheat 0.5 mL, l 22:05: Injection, [place] 00 IV, Once, first dose 12/30/15 16:05:00 DISTRIBUTION ESTIMATOR, stop date 12/30/15 16:05:00 DISTRIBUTION ESTIMATOR midazolam No [place] 0.5 mg = Me moria 3-10 Wheat 0.5 mL, l 22:05: Injection, [place] 00 IV, Once, first dose 12/30/15 16:05:00 DISTRIBUTION ESTIMATOR, stop date 12/30/15 16:05:00 DISTRIBUTION ESTIMATOR fenta[facility]L No Perico 25 mcg = Mem oria 3-10 Wheat 0.5 mL, l 22:05: Injection, [place] 00 IV, Once, first dose 12/30/15 16:05:00 DISTRIBUTION ESTIMATOR, stop date 12/30/15 16:05:00 DISTRIBUTION ESTIMATOR midazolam 2016-0 No [place] 0.5 mg = Me moria 3-10 Wheat 0.5 mL, l 22:05: Injection, [place] 00 IV, Once, first dose 12/30/15 16:05:00 DISTRIBUTION ESTIMATOR, stop date 12/30/15 16:05:00 DISTRIBUTION ESTIMATOR fenta[facility]L 2015-0 No Perico 25 mcg = Mem oria 3-10 Wheat 0.5 mL, l 22:05: Injection, [place] 00 IV, Once, first dose 12/30/15 16:05:00 DISTRIBUTION ESTIMATOR, stop date 12/30/15 16:05:00 DISTRIBUTION ESTIMATOR midazolam 2015-0 No [place] 0.5 mg = Me moria 3-10 Wheat 0.5 mL, l 22:05: Injection, [place] 00 IV, Once, first dose 12/30/15 16:05:00 DISTRIBUTION ESTIMATOR, stop date 12/30/15 16:05:00 DISTRIBUTION ESTIMATOR fentaNYL 2015-0 No Per[place] 25 mcg = Mem oria 3-10 Wheat 0.5 mL, l 22:05: Injection, [place] 00 IV, Once, first dose 12/30/15 16:05:00 DISTRIBUTION ESTIMATOR, stop date 12/30/15 16:05:00 DISTRIBUTION ESTIMATOR midazolam 2015-0 No [place] 0.5 mg = Me moria 3-10 Wheat 0.5 mL, l 22:05: Injection, [place] 00 IV, Once, first dose 12/30/15 16:05:00 DISTRIBUTION ESTIMATOR, stop date 12/30/15 16:05:00 DISTRIBUTION ESTIMATOR fenta[facility]L 2016-0 No [place] 25 mcg = Mem oria 3-10 Wheat 0.5 mL, l 22:05: Injection, [place] 00 IV, Once, first dose 12/30/15 16:05:00 DISTRIBUTION ESTIMATOR, stop date 12/30/15 16:05:00 DISTRIBUTION ESTIMATOR midazolam 2016-0 No [place] 0.5 mg = Me moria 3-10 Wheat 0.5 mL, l 22:05: Injection, [place] 00 IV, Once, first dose 12/30/15 16:05:00 DISTRIBUTION ESTIMATOR, stop date 12/30/15 16:05:00 DISTRIBUTION ESTIMATOR fenta[facility]L 2016-0 No Perico 25 mcg = Mem oria 3-10 Wheat 0.5 mL, l 22:05: Injection, [place] 00 IV, Once, first dose 12/30/15 16:05:00 DISTRIBUTION ESTIMATOR, stop date 12/30/15 16:05:00 DISTRIBUTION ESTIMATOR midazolam 2015-0 No [place] 0.5 mg = Me moria 3-10 Wheat 0.5 mL, l 22:05: Injection, [place] 00 IV, Once, first dose 12/30/15 16:05:00 DISTRIBUTION ESTIMATOR, stop date 12/30/15 16:05:00 DISTRIBUTION ESTIMATOR fenta[facility]L No Perico 25 mcg = Mem oria 3-10 Wheat 0.5 mL, l 22:05: Injection, [place] 00 IV, Once, first dose 12/30/15 16:05:00 DISTRIBUTION ESTIMATOR, stop date 12/30/15 16:05:00 DISTRIBUTION ESTIMATOR midazolam 2015-0 No [place] 0.5 mg = Me moria 3-10 Wheat 0.5 mL, l 22:05: Injection, [place] 00 IV, Once, first dose 12/30/15 16:05:00 DISTRIBUTION ESTIMATOR, stop date 12/30/15 16:05:00 DISTRIBUTION ESTIMATOR fenta[facility]L No Perico 25 mcg = Mem oria 3-10 Wheat 0.5 mL, l 22:05: Injection, [place] 00 IV, Once, first dose 12/30/15 16:05:00 DISTRIBUTION ESTIMATOR, stop date 12/30/15 16:05:00 DISTRIBUTION ESTIMATOR midazolam No [place] 0.5 mg = Me moria 3-10 Wheat 0.5 mL, l 22:05: Injection, [place] 00 IV, Once, first dose 12/30/15 16:05:00 DISTRIBUTION ESTIMATOR, stop date 12/30/15 16:05:00 DISTRIBUTION ESTIMATOR lidocaine 2015-0 No [place] 3 mL, Memor ia 3-10 Wheat Injection, l 21:58: IV, Once, [place] 00 first dose 12/30/15 15:58:00 DISTRIBUTION ESTIMATOR, stop date 12/30/15 15:58:00 DISTRIBUTION ESTIMATOR propofol 2015-0 No [place] 120 mg = Mem oria 3-10 Wheat 12 mL, l 21:58: Emulsion, [place] 00 IV, Once, first dose 12/30/15 15:58:00 DISTRIBUTION ESTIMATOR, stop date 12/30/15 15:58:00 DISTRIBUTION ESTIMATOR lidocaine 2015-0 No [place] 3 mL, Memor ia 3-10 Wheat Injection, l 21:58: IV, Once, [place] 00 first dose 12/30/15 15:58:00 DISTRIBUTION ESTIMATOR, stop date 12/30/15 15:58:00 DISTRIBUTION ESTIMATOR propofol No [place] 120 mg = Mem oria 3-10 Wheat 12 mL, l 21:58: Emulsion, [place] 00 IV, Once, first dose 12/30/15 15:58:00 DISTRIBUTION ESTIMATOR, stop date 12/30/15 15:58:00 DISTRIBUTION ESTIMATOR lidocaine No [place] 3 mL, Memor ia 3-10 Wheat Injection, l 21:58: IV, Once, [place] 00 first dose 12/30/15 15:58:00 DISTRIBUTION ESTIMATOR, stop date 12/30/15 15:58:00 DISTRIBUTION ESTIMATOR propofol No [place] 120 mg = Mem oria 3-10 Wheat 12 mL, l 21:58: Emulsion, [place] 00 IV, Once, first dose 12/30/15 15:58:00 DISTRIBUTION ESTIMATOR, stop date 12/30/15 15:58:00 DISTRIBUTION ESTIMATOR lidocaine No [place] 3 mL, Memor ia 3-10 Wheat Injection, l 21:58: IV, Once, [place] 00 first dose 12/30/15 15:58:00 DISTRIBUTION ESTIMATOR, stop date 12/30/15 15:58:00 DISTRIBUTION ESTIMATOR propofol No [place] 120 mg = Mem oria 3-10 Wheat 12 mL, l 21:58: Emulsion, [place] 00 IV, Once, first dose 12/30/15 15:58:00 DISTRIBUTION ESTIMATOR, stop date 12/30/15 15:58:00 DISTRIBUTION ESTIMATOR lidocaine No Per[place] 3 mL, Memor ia 3-10 Wheat Injection, l 21:58: IV, Once, [place] 00 first dose 12/30/15 15:58:00 DISTRIBUTION ESTIMATOR, stop date 12/30/15 15:58:00 DISTRIBUTION ESTIMATOR propofol No Per[place] 120 mg = Mem oria 3-10 Wheat 12 mL, l 21:58: Emulsion, [place] 00 IV, Once, first dose 12/30/15 15:58:00 DISTRIBUTION ESTIMATOR, stop date 12/30/15 15:58:00 DISTRIBUTION ESTIMATOR lidocaine 2015-0 No Perico 3 mL, Memor ia 3-10 Wheat Injection, l 21:58: IV, Once, [place] 00 first dose 12/30/15 15:58:00 DISTRIBUTION ESTIMATOR, stop date 12/30/15 15:58:00 DISTRIBUTION ESTIMATOR propofol No [place] 120 mg = Mem oria 3-10 Wheat 12 mL, l 21:58: Emulsion, [place] 00 IV, Once, first dose 12/30/15 15:58:00 DISTRIBUTION ESTIMATOR, stop date 12/30/15 15:58:00 DISTRIBUTION ESTIMATOR lidocaine No Per[place] 3 mL, Memor ia 3-10 Wheat Injection, l 21:58: IV, Once, [place] 00 first dose 12/30/15 15:58:00 DISTRIBUTION ESTIMATOR, stop date 12/30/15 15:58:00 DISTRIBUTION ESTIMATOR propofol No Per[place] 120 mg = Mem oria 3-10 Wheat 12 mL, l 21:58: Emulsion, [place] 00 IV, Once, first dose 12/30/15 15:58:00 DISTRIBUTION ESTIMATOR, stop date 12/30/15 15:58:00 DISTRIBUTION ESTIMATOR lidocaine No Perico 3 mL, Memor ia 3-10 Wheat Injection, l 21:58: IV, Once, [place] 00 first dose 12/30/15 15:58:00 DISTRIBUTION ESTIMATOR, stop date 12/30/15 15:58:00 DISTRIBUTION ESTIMATOR propofol No Perico 120 mg = Mem oria 3-10 Wheat 12 mL, l 21:58: Emulsion, [place] 00 IV, Once, first dose 12/30/15 15:58:00 DISTRIBUTION ESTIMATOR, stop date 12/30/15 15:58:00 DISTRIBUTION ESTIMATOR lidocaine No Perico 3 mL, Memor ia 3-10 Wheat Injection, l 21:58: IV, Once, [place] 00 first dose 12/30/15 15:58:00 DISTRIBUTION ESTIMATOR, stop date 12/30/15 15:58:00 DISTRIBUTION ESTIMATOR propofol No Per[place] 120 mg = Mem oria 3-10 Wheat 12 mL, l 21:58: Emulsion, [place] 00 IV, Once, first dose 12/30/15 15:58:00 DISTRIBUTION ESTIMATOR, stop date 12/30/15 15:58:00 DISTRIBUTION ESTIMATOR lidocaine No Perico 3 mL, Memor ia 3-10 Wheat Injection, l 21:58: IV, Once, [place] 00 first dose 12/30/15 15:58:00 DISTRIBUTION ESTIMATOR, stop date 12/30/15 15:58:00 DISTRIBUTION ESTIMATOR propofol 2015-0 No Per[place] 120 mg = Mem oria 3-10 Wheat 12 mL, l 21:58: Emulsion, [place] 00 IV, Once, first dose 12/30/15 15:58:00 DISTRIBUTION ESTIMATOR, stop date 12/30/15 15:58:00 DISTRIBUTION ESTIMATOR midazolam 2015-0 No [facility] 0.5 mg = Me moria 3-10 Wheat 0.5 mL, l 21:50: Injection, [place] 00 IV, Once, first dose 12/30/15 15:50:00 DISTRIBUTION ESTIMATOR, stop date 12/30/15 15:50:00 DISTRIBUTION ESTIMATOR fentaNYL 2015- No Perico 25 mcg = Mem oria 3-10 Wheat 0.5 mL, l 21:50: Injection, [place] 00 IV, Once, first dose 12/30/15 15:50:00 DISTRIBUTION ESTIMATOR, stop date 12/30/15 15:50:00 DISTRIBUTION ESTIMATOR midazolam 2015- No [facility] 0.5 mg = Me moria 3-10 Wheat 0.5 mL, l 21:50: Injection, [place] 00 IV, Once, first dose 12/30/15 15:50:00 DISTRIBUTION ESTIMATOR, stop date 12/30/15 15:50:00 DISTRIBUTION ESTIMATOR fentaNYL 2015- No Perico 25 mcg = Mem oria 3-10 Wheat 0.5 mL, l 21:50: Injection, [place] 00 IV, Once, first dose 12/30/15 15:50:00 DISTRIBUTION ESTIMATOR, stop date 12/30/15 15:50:00 DISTRIBUTION ESTIMATOR midazolam 2015- No [facility] 0.5 mg = Me moria 3-10 Wheat 0.5 mL, l 21:50: Injection, [place] 00 IV, Once, first dose 12/30/15 15:50:00 DISTRIBUTION ESTIMATOR, stop date 12/30/15 15:50:00 DISTRIBUTION ESTIMATOR fentaNYL 2015- No Perico 25 mcg = Mem oria 3-10 Wheat 0.5 mL, l 21:50: Injection, [place] 00 IV, Once, first dose 12/30/15 15:50:00 DISTRIBUTION ESTIMATOR, stop date 12/30/15 15:50:00 DISTRIBUTION ESTIMATOR midazolam 2015-0 No Per[place] 0.5 mg = Me moria 3-10 Wheat 0.5 mL, l 21:50: Injection, [place] 00 IV, Once, first dose 12/30/15 15:50:00 DISTRIBUTION ESTIMATOR, stop date 12/30/15 15:50:00 DISTRIBUTION ESTIMATOR fentaNYL 2015-0 No Perico 25 mcg = Mem oria 3-10 Wheat 0.5 mL, l 21:50: Injection, [place] 00 IV, Once, first dose 12/30/15 15:50:00 DISTRIBUTION ESTIMATOR, stop date 12/30/15 15:50:00 DISTRIBUTION ESTIMATOR midazolam 2015- No [facility] 0.5 mg = Me moria 3-10 Wheat 0.5 mL, l 21:50: Injection, [place] 00 IV, Once, first dose 12/30/15 15:50:00 DISTRIBUTION ESTIMATOR, stop date 12/30/15 15:50:00 DISTRIBUTION ESTIMATOR fentaNYL No Perico 25 mcg = Mem oria 3-10 Wheat 0.5 mL, l 21:50: Injection, [place] 00 IV, Once, first dose 12/30/15 15:50:00 DISTRIBUTION ESTIMATOR, stop date 12/30/15 15:50:00 DISTRIBUTION ESTIMATOR midazolam 2015- No [facility] 0.5 mg = Me moria 3-10 Wheat 0.5 mL, l 21:50: Injection, [place] 00 IV, Once, first dose 12/30/15 15:50:00 DISTRIBUTION ESTIMATOR, stop date 12/30/15 15:50:00 DISTRIBUTION ESTIMATOR fentaNYL 2015- No Perico 25 mcg = Mem oria 3-10 Wheat 0.5 mL, l 21:50: Injection, [place] 00 IV, Once, first dose 12/30/15 15:50:00 DISTRIBUTION ESTIMATOR, stop date 12/30/15 15:50:00 DISTRIBUTION ESTIMATOR midazolam 0 No Perico 0.5 mg = Me moria 3-10 Wheat 0.5 mL, l 21:50: Injection, [place] 00 IV, Once, first dose 12/30/15 15:50:00 DISTRIBUTION ESTIMATOR, stop date 12/30/15 15:50:00 DISTRIBUTION ESTIMATOR fentaNYL 2015- No Perico 25 mcg = Mem oria 3-10 Wheat 0.5 mL, l 21:50: Injection, Denis 00 IV, Once, first dose 12/30/15 15:50:00 DISTRIBUTION ESTIMATOR, stop date 12/30/15 15:50:00 DISTRIBUTION ESTIMATOR midazolam 2016-0 No Perico 0.5 mg = Me moria 3-10 Wheat 0.5 mL, l 21:50: Injection, Denis 00 IV, Once, first dose 12/30/15 15:50:00 DISTRIBUTION ESTIMATOR, stop date 12/30/15 15:50:00 DISTRIBUTION ESTIMATOR fentaNYL 2016-0 No Perico 25 mcg = Mem oria 3-10 Wheat 0.5 mL, l 21:50: Injection, [place] 00 IV, Once, first dose 12/30/15 15:50:00 DISTRIBUTION ESTIMATOR, stop date 12/30/15 15:50:00 DISTRIBUTION ESTIMATOR midazolam 2016-0 No Perico 0.5 mg = Me moria 3-10 Wheat 0.5 mL, l 21:50: Injection, [place] 00 IV, Once, first dose 12/30/15 15:50:00 DISTRIBUTION ESTIMATOR, stop date 12/30/15 15:50:00 DISTRIBUTION ESTIMATOR fentaNYL 2016-0 No Perico 25 mcg = Mem oria 3-10 Wheat 0.5 mL, l 21:50: Injection, [place] 00 IV, Once, first dose 12/30/15 15:50:00 DISTRIBUTION ESTIMATOR, stop date 12/30/15 15:50:00 DISTRIBUTION ESTIMATOR midazolam 2016-0 No Perico 0.5 mg = Me moria 3-10 Wheat 0.5 mL, l 21:50: Injection, [place] 00 IV, Once, first dose 12/30/15 15:50:00 DISTRIBUTION ESTIMATOR, stop date 12/30/15 15:50:00 DISTRIBUTION ESTIMATOR fentaNYL 2016-0 No Perico 25 mcg = Mem oria 3-10 Wheat 0.5 mL, l 21:50: Injection, [place] 00 IV, Once, first dose 12/30/15 15:50:00 DISTRIBUTION ESTIMATOR, stop date 12/30/15 15:50:00 DISTRIBUTION ESTIMATOR midazolam 2015-0 No Perico 0.5 mg = Me moria 3-10 Wheat 0.5 mL, l 21:10: Injection, [place] 00 IV, Once, first dose 12/30/15 15:10:00 DISTRIBUTION ESTIMATOR, stop date 12/30/15 15:10:00 DISTRIBUTION ESTIMATOR fentaNYL 2016-0 No Perico 25 mcg = Mem oria 3-10 Wheat 0.5 mL, l 21:10: Injection, [place] 00 IV, Once, first dose 12/30/15 15:10:00 DISTRIBUTION ESTIMATOR, stop date 12/30/15 15:10:00 DISTRIBUTION ESTIMATOR midazolam 2016-0 No Perico 0.5 mg = Me moria 3-10 Wheat 0.5 mL, l 21:10: Injection, [place] 00 IV, Once, first dose 12/30/15 15:10:00 DISTRIBUTION ESTIMATOR, stop date 12/30/15 15:10:00 DISTRIBUTION ESTIMATOR fentaNYL 2016-0 No Perico 25 mcg = Mem oria 3-10 Wheat 0.5 mL, l 21:10: Injection, [place] 00 IV, Once, first dose 12/30/15 15:10:00 DISTRIBUTION ESTIMATOR, stop date 12/30/15 15:10:00 DISTRIBUTION ESTIMATOR midazolam 2016-0 No Perico 0.5 mg = Me moria 3-10 Wheat 0.5 mL, l 21:10: Injection, [place] 00 IV, Once, first dose 12/30/15 15:10:00 DISTRIBUTION ESTIMATOR, stop date 12/30/15 15:10:00 DISTRIBUTION ESTIMATOR fentaNYL 2016-0 No Perico 25 mcg = Mem oria 3-10 Wheat 0.5 mL, l 21:10: Injection, [place] 00 IV, Once, first dose 12/30/15 15:10:00 DISTRIBUTION ESTIMATOR, stop date 12/30/15 15:10:00 DISTRIBUTION ESTIMATOR midazolam 2016-0 No Perico 0.5 mg = Me moria 3-10 Wheat 0.5 mL, l 21:10: Injection, Denis 00 IV, Once, first dose 12/30/15 15:10:00 DISTRIBUTION ESTIMATOR, stop date 12/30/15 15:10:00 DISTRIBUTION ESTIMATOR fentaNYL 2016-0 No Perico 25 mcg = Mem oria 3-10 Wheat 0.5 mL, l 21:10: Injection, [place] 00 IV, Once, first dose 12/30/15 15:10:00 DISTRIBUTION ESTIMATOR, stop date 12/30/15 15:10:00 DISTRIBUTION ESTIMATOR midazolam 2016-0 No Perico 0.5 mg = Me moria 3-10 Wheat 0.5 mL, l 21:10: Injection, [place] 00 IV, Once, first dose 12/30/15 15:10:00 DISTRIBUTION ESTIMATOR, stop date 12/30/15 15:10:00 DISTRIBUTION ESTIMATOR fentaNYL 2016-0 No Perico 25 mcg = Mem oria 3-10 Wheat 0.5 mL, l 21:10: Injection, Denis 00 IV, Once, first dose 12/30/15 15:10:00 DISTRIBUTION ESTIMATOR, stop date 12/30/15 15:10:00 DISTRIBUTION ESTIMATOR midazolam 2015-0 No Perico 0.5 mg = Me moria 3-10 Wheat 0.5 mL, l 21:10: Injection, Denis 00 IV, Once, first dose 12/30/15 15:10:00 DISTRIBUTION ESTIMATOR, stop date 12/30/15 15:10:00 DISTRIBUTION ESTIMATOR fentaNYL 2015-0 No Perico 25 mcg = Mem oria 3-10 Wheat 0.5 mL, l 21:10: Injection, Denis 00 IV, Once, first dose 12/30/15 15:10:00 DISTRIBUTION ESTIMATOR, stop date 12/30/15 15:10:00 DISTRIBUTION ESTIMATOR midazolam 2015-0 No Perico 0.5 mg = Me moria 3-10 Wheat 0.5 mL, l 21:10: Injection, [place] 00 IV, Once, first dose 12/30/15 15:10:00 DISTRIBUTION ESTIMATOR, stop date 12/30/15 15:10:00 DISTRIBUTION ESTIMATOR fentaNYL 2015-0 No Perico 25 mcg = Mem oria 3-10 Wheat 0.5 mL, l 21:10: Injection, [place] 00 IV, Once, first dose 12/30/15 15:10:00 DISTRIBUTION ESTIMATOR, stop date 12/30/15 15:10:00 DISTRIBUTION ESTIMATOR midazolam 2015-0 No Perico 0.5 mg = Me moria 3-10 Wheat 0.5 mL, l 21:10: Injection, Denis 00 IV, Once, first dose 12/30/15 15:10:00 DISTRIBUTION ESTIMATOR, stop date 12/30/15 15:10:00 DISTRIBUTION ESTIMATOR fentaNYL 2015-0 No Perico 25 mcg = Mem oria 3-10 Wheat 0.5 mL, l 21:10: Injection, [place] 00 IV, Once, first dose 12/30/15 15:10:00 DISTRIBUTION ESTIMATOR, stop date 12/30/15 15:10:00 DISTRIBUTION ESTIMATOR midazolam 2015-0 No Perico 0.5 mg = Me moria 3-10 Wheat 0.5 mL, l 21:10: Injection, Denis 00 IV, Once, first dose 12/30/15 15:10:00 DISTRIBUTION ESTIMATOR, stop date 12/30/15 15:10:00 DISTRIBUTION ESTIMATOR fentaNYL 2016-0 No Perico 25 mcg = Mem oria 3-10 Wheat 0.5 mL, l 21:10: Injection, [place] 00 IV, Once, first dose 12/30/15 15:10:00 DISTRIBUTION ESTIMATOR, stop date 12/30/15 15:10:00 DISTRIBUTION ESTIMATOR midazolam 2016-0 No Perico 0.5 mg = Me moria 3-10 Wheat 0.5 mL, l 21:10: Injection, Denis 00 IV, Once, first dose 12/30/15 15:10:00 DISTRIBUTION ESTIMATOR, stop date 12/30/15 15:10:00 DISTRIBUTION ESTIMATOR fentaNYL 2015-0 No Perico 25 mcg = Mem oria 3-10 Wheat 0.5 mL, l 21:10: Injection, [place] 00 IV, Once, first dose 12/30/15 15:10:00 DISTRIBUTION ESTIMATOR, stop date 12/30/15 15:10:00 DISTRIBUTION ESTIMATOR fentaNYL 2016-0 No Perico 25 mcg = Mem oria 3-10 Wheat 0.5 mL, l 21:05: Injection, [place] 00 IV, Once, first dose 12/30/15 15:05:00 DISTRIBUTION ESTIMATOR, stop date 12/30/15 15:05:00 DISTRIBUTION ESTIMATOR midazolam 2016-0 No Perico 0.5 mg = Me moria 3-10 Wheat 0.5 mL, l 21:05: Injection, [place] 00 IV, Once, first dose 12/30/15 15:05:00 DISTRIBUTION ESTIMATOR, stop date 12/30/15 15:05:00 DISTRIBUTION ESTIMATOR fentaNYL 2016-0 No Perico 25 mcg = Mem oria 3-10 Wheat 0.5 mL, l 21:05: Injection, [place] 00 IV, Once, first dose 12/30/15 15:05:00 DISTRIBUTION ESTIMATOR, stop date 12/30/15 15:05:00 DISTRIBUTION ESTIMATOR midazolam 2016-0 No Perico 0.5 mg = Me moria 3-10 Wheat 0.5 mL, l 21:05: Injection, [place] 00 IV, Once, first dose 12/30/15 15:05:00 DISTRIBUTION ESTIMATOR, stop date 12/30/15 15:05:00 DISTRIBUTION ESTIMATOR fentaNYL 2016-0 No Perico 25 mcg = Mem oria 3-10 Wheat 0.5 mL, l 21:05: Injection, [place] 00 IV, Once, first dose 12/30/15 15:05:00 DISTRIBUTION ESTIMATOR, stop date 12/30/15 15:05:00 DISTRIBUTION ESTIMATOR midazolam 2015-0 No Perico 0.5 mg = Me moria 3-10 Wheat 0.5 mL, l 21:05: Injection, [place] 00 IV, Once, first dose 12/30/15 15:05:00 DISTRIBUTION ESTIMATOR, stop date 12/30/15 15:05:00 DISTRIBUTION ESTIMATOR fentaNYL 2015-0 No Preico 25 mcg = Mem oria 3-10 Wheat 0.5 mL, l 21:05: Injection, [place] 00 IV, Once, first dose 12/30/15 15:05:00 DISTRIBUTION ESTIMATOR, stop date 12/30/15 15:05:00 DISTRIBUTION ESTIMATOR midazolam 2015-0 No Perico 0.5 mg = Me moria 3-10 Wheat 0.5 mL, l 21:05: Injection, [place] 00 IV, Once, first dose 12/30/15 15:05:00 DISTRIBUTION ESTIMATOR, stop date 12/30/15 15:05:00 DISTRIBUTION ESTIMATOR fentaNYL 2015-0 No Perico 25 mcg = Mem oria 3-10 Wheat 0.5 mL, l 21:05: Injection, [place] 00 IV, Once, first dose 12/30/15 15:05:00 DISTRIBUTION ESTIMATOR, stop date 12/30/15 15:05:00 DISTRIBUTION ESTIMATOR midazolam 2015-0 No Perico 0.5 mg = Me moria 3-10 Wheat 0.5 mL, l 21:05: Injection, [place] 00 IV, Once, first dose 12/30/15 15:05:00 DISTRIBUTION ESTIMATOR, stop date 12/30/15 15:05:00 DISTRIBUTION ESTIMATOR fentaNYL 2015-0 No Perico 25 mcg = Mem oria 3-10 Wheat 0.5 mL, l 21:05: Injection, [place] 00 IV, Once, first dose 12/30/15 15:05:00 DISTRIBUTION ESTIMATOR, stop date 12/30/15 15:05:00 DISTRIBUTION ESTIMATOR midazolam 2015-0 No [place]ico 0.5 mg = Me moria 3-10 Wheat 0.5 mL, l 21:05: Injection, [place] 00 IV, Once, first dose 12/30/15 15:05:00 DISTRIBUTION ESTIMATOR, stop date 12/30/15 15:05:00 DISTRIBUTION ESTIMATOR fentaNYL 2015-0 No Perico 25 mcg = Mem oria 3-10 Wheat 0.5 mL, l 21:05: Injection, [place] 00 IV, Once, first dose 12/30/15 15:05:00 DISTRIBUTION ESTIMATOR, stop date 12/30/15 15:05:00 DISTRIBUTION ESTIMATOR midazolam 2015-0 No Perico 0.5 mg = Me moria 3-10 Wheat 0.5 mL, l 21:05: Injection, [place] 00 IV, Once, first dose 12/30/15 15:05:00 DISTRIBUTION ESTIMATOR, stop date 12/30/15 15:05:00 DISTRIBUTION ESTIMATOR fentaNYL 2015-0 No Percio 25 mcg = Mem oria 3-10 Wheat 0.5 mL, l 21:05: Injection, [place] 00 IV, Once, first dose 12/30/15 15:05:00 DISTRIBUTION ESTIMATOR, stop date 12/30/15 15:05:00 DISTRIBUTION ESTIMATOR midazolam 2015- No [place]ico 0.5 mg = Me moria 3-10 Wheat 0.5 mL, l 21:05: Injection, [place] 00 IV, Once, first dose 12/30/15 15:05:00 DISTRIBUTION ESTIMATOR, stop date 12/30/15 15:05:00 DISTRIBUTION ESTIMATOR fentaNYL 2015- No Perico 25 mcg = Mem oria 3-10 Wheat 0.5 mL, l 21:05: Injection, [place] 00 IV, Once, first dose 12/30/15 15:05:00 DISTRIBUTION ESTIMATOR, stop date 12/30/15 15:05:00 DISTRIBUTION ESTIMATOR midazolam No [place] 0.5 mg = Me moria 3-10 Wheat 0.5 mL, l 21:05: Injection, [place] 00 IV, Once, first dose 12/30/15 15:05:00 DISTRIBUTION ESTIMATOR, stop date 12/30/15 15:05:00 DISTRIBUTION ESTIMATOR fentaNYL 2015-0 No Perico 25 mcg = Mem oria 3-10 Wheat 0.5 mL, l 21:05: Injection, [place] 00 IV, Once, first dose 12/30/15 15:05:00 DISTRIBUTION ESTIMATOR, stop date 12/30/15 15:05:00 DISTRIBUTION ESTIMATOR midazolam No [place] 0.5 mg = Me moria 3-10 Wheat 0.5 mL, l 21:05: Injection, [place] 00 IV, Once, first dose 12/30/15 15:05:00 DISTRIBUTION ESTIMATOR, stop date 12/30/15 15:05:00 DISTRIBUTION ESTIMATOR clindamycin 2016-0 No Jose [place] 900 mg, IV Memoria 3-10 Johnson Piggyback, l 20:00: Once, [place] 00 infuse over 30 minutes, first dose 12/30/15 14:00:00 DISTRIBUTION ESTIMATOR, stop date 12/30/15 14:00:00 DISTRIBUTION ESTIMATOR, Prophylaxi s clindamycin 2016-0 No Jose Francisco 900 mg, IV Memoria 3-10 Johnson Piggyback, l 20:00: Once, [place] 00 infuse over 30 minutes, first dose 12/30/15 14:00:00 DISTRIBUTION ESTIMATOR, stop date 12/30/15 14:00:00 DISTRIBUTION ESTIMATOR, Prophylaxi s clindamycin 2016-0 No Jose Francisco 900 mg, IV Memoria 3-10 Johnson Piggyback, l 20:00: Once, [place] 00 infuse over 30 minutes, first dose 12/30/15 14:00:00 DISTRIBUTION ESTIMATOR, stop date 12/30/15 14:00:00 DISTRIBUTION ESTIMATOR, Prophylaxi s clindamycin 2015-0 No Jose Francisco 900 mg, IV Memoria 3-10 Johnson Piggyback, l 20:00: Once, [place] 00 infuse over 30 minutes, first dose 12/30/15 14:00:00 DISTRIBUTION ESTIMATOR, stop date 12/30/15 14:00:00 DISTRIBUTION ESTIMATOR, Prophylaxi s clindamycin 2016-0 No Jose Francisco 900 mg, IV Memoria 3-10 Johnson Piggyback, l 20:00: Once, [place] 00 infuse over 30 minutes, first dose 12/30/15 14:00:00 DISTRIBUTION ESTIMATOR, stop date 12/30/15 14:00:00 DISTRIBUTION ESTIMATOR, Prophylaxi s clindamycin 2015-0 No Jose Francisco 900 mg, IV Memoria 3-10 Johnson Piggyback, l 20:00: Once, [place] 00 infuse over 30 minutes, first dose 12/30/15 14:00:00 DISTRIBUTION ESTIMATOR, stop date 12/30/15 14:00:00 DISTRIBUTION ESTIMATOR, Prophylaxi s clindamycin 2016-0 No Jose Francisco 900 mg, IV Memoria 3-10 Johnson Piggyback, l 20:00: Once, [place] 00 infuse over 30 minutes, first dose 12/30/15 14:00:00 DISTRIBUTION ESTIMATOR, stop date 12/30/15 14:00:00 DISTRIBUTION ESTIMATOR, Prophylaxi s clindamycin 0 No Jose Francisco 900 mg, IV Memoria 3-10 Johnson Piggyback, l 20:00: Once, [place] 00 infuse over 30 minutes, first dose 12/30/15 14:00:00 DISTRIBUTION ESTIMATOR, stop date 12/30/15 14:00:00 DISTRIBUTION ESTIMATOR, Prophylaxi s clindamycin 2015-0 No Jose Francisco 900 mg, IV Memoria 3-10 Johnson Piggyback, l 20:00: Once, [place] 00 infuse over 30 minutes, first dose 12/30/15 14:00:00 DISTRIBUTION ESTIMATOR, stop date 12/30/15 14:00:00 DISTRIBUTION ESTIMATOR, Prophylaxi s clindamycin 2015-0 No Jose Francisco 900 mg, IV Memoria 3-10 Johnson Piggyback, l 20:00: Once, [place] 00 infuse over 30 minutes, first dose 12/30/15 14:00:00 DISTRIBUTION ESTIMATOR, stop date 12/30/15 14:00:00 DISTRIBUTION ESTIMATOR, Prophylaxi s LR 1,000 mL No Kyle K 1,000 mL, Memoria 3-10 Silvestre IV, 30 l 19:27: mL/hr, [place] 00 start date 12/30/15 13:27:00 DISTRIBUTION ESTIMATOR Lidocaine 2015-0 No Kyle K 0.2 mL, Mem oria 2% 0.2 mL 3-10 Silvestre Injection, l IV Start 19:27: Subcutaneo [facility] [[facility]] 00 us, Once PRN for other (see comment), first dose 12/30/15 13:27:00 DISTRIBUTION ESTIMATOR LR 1,000 mL No Kyle K 1,000 mL, Memoria 3-10 Silvestre IV, 30 l 19:27: mL/hr, Denis start date 12/30/15 13:27:00 DISTRIBUTION ESTIMATOR Lidocaine 0 No Kyle K 0.2 mL, Mem oria 2% 0.2 mL 3-10 Silvestre Injection, l IV Start 19:27: Subcutaneo [facility] [[place]] 00 us, Once PRN for other (see comment), first dose 12/30/15 13:27:00 DISTRIBUTION ESTIMATOR LR 1,000 mL No Kyle K 1,000 mL, Memoria 3-10 Silvestre IV, 30 l 19:27: mL/hr, Denis start date 12/30/15 13:27:00 DISTRIBUTION ESTIMATOR Lidocaine No Kyle K 0.2 mL, Mem oria 2% 0.2 mL 3-10 Silvestre Injection, l IV Start 19:27: Subcutaneo [facility] [Formerly [facility]] 00 us, Once PRN for other (see comment), first dose 12/30/15 13:27:00 DISTRIBUTION ESTIMATOR LR 1,000 mL No Kyle K 1,000 mL, Memoria 3-10 Silvestre IV, 30 l 19:27: mL/hr, [place] 00 start date 12/30/15 13:27:00 DISTRIBUTION ESTIMATOR Lidocaine No Kyle K 0.2 mL, Mem oria 2% 0.2 mL 3-10 Silvestre Injection, l IV Start 19:27: Subcutaneo [facility] [[facility]ly [facility]] 00 us, Once PRN for other (see comment), first dose 12/30/15 13:27:00 DISTRIBUTION ESTIMATOR LR 1,000 mL No Kyle K 1,000 mL, Memoria 3-10 Silvestre IV, 30 l 19:27: mL/hr, [place] 00 start date 12/30/15 13:27:00 DISTRIBUTION ESTIMATOR Lidocaine No Kyle K 0.2 mL, Mem oria 2% 0.2 mL 3-10 Silvesrte Injection, l IV Start 19:27: Subcutaneo [facility] [[facility]] 00 us, Once PRN for other (see comment), first dose 12/30/15 13:27:00 DISTRIBUTION ESTIMATOR LR 1,000 mL No Kyle K 1,000 mL, Memoria 3-10 Silvestre IV, 30 l 19:27: mL/hr, [place] 00 start date 12/30/15 13:27:00 DISTRIBUTION ESTIMATOR Lidocaine No Kyle K 0.2 mL, Mem oria 2% 0.2 mL 3-10 Silvestre Injection, l IV Start 19:27: Subcutaneo [facility] [[facility]] 00 us, Once PRN for other (see comment), first dose 12/30/15 13:27:00 DISTRIBUTION ESTIMATOR LR 1,000 mL No Kyle K 1,000 mL, Memoria 3-10 Silvestre IV, 30 l 19:27: mL/hr, [place] 00 start date 12/30/15 13:27:00 DISTRIBUTION ESTIMATOR Lidocaine No Kyle K 0.2 mL, Mem oria 2% 0.2 mL 3-10 Silvestre Injection, l IV Start 19:27: Subcutaneo [facility] [[facility]] 00 us, Once PRN for other (see comment), first dose 12/30/15 13:27:00 DISTRIBUTION ESTIMATOR LR 1,000 mL No Kyle K 1,000 mL, Memoria 3-10 Silvestre IV, 30 l 19:27: mL/hr, Denis start date 12/30/15 13:27:00 DISTRIBUTION ESTIMATOR Lidocaine No Kyle K 0.2 mL, Mem oria 2% 0.2 mL 3-10 Silvestre Injection, l IV Start 19:27: Subcutaneo [facility] [[facility]] 00 us, Once PRN for other (see comment), first dose 12/30/15 13:27:00 DISTRIBUTION ESTIMATOR LR 1,000 mL No Kyle K 1,000 mL, Memoria 3-10 Silvestre IV, 30 l 19:27: mL/hr, [place] 00 start date 12/30/15 13:27:00 DISTRIBUTION ESTIMATOR Lidocaine No Kyle K 0.2 mL, Mem oria 2% 0.2 mL 3-10 Silvestre Injection, l IV Start 19:27: Subcutaneo [facility] [[facility]] 00 us, Once PRN for other (see comment), first dose 12/30/15 13:27:00 DISTRIBUTION ESTIMATOR LR 1,000 mL No Kyle K 1,000 mL, Memoria 3-10 Silvestre IV, 30 l 19:27: mL/hr, [place] 00 start date 12/30/15 13:27:00 DISTRIBUTION ESTIMATOR Lidocaine No Kyle K 0.2 mL, Mem oria 2% 0.2 mL 3-10 Silvestre Injection, l IV Start 19:27: Subcutaneo [facility] [[facility]] 00 us, Once PRN for other (see comment), first dose 12/30/15 13:27:00 DISTRIBUTION ESTIMATOR Seroquel Yes 100 mg, Memori a 3-09 Oral, l 14:40: Daily, 0 [place] 00 Refill(s), migraines acetaminoph Yes 1 tabs, Mem oria en-HYDROcod 3-09 Oral, l one 325 14:40: q6hr, 0 [place] mg-5 mg 00 Refill(s), oral tablet pain traMADol 50 Yes 50 mg = 1 M emoria mg oral 3-09 tabs, l tablet 14:40: Oral, [place] 00 q4hr, 0 Refill(s), pain amLODIPine- Yes [...] oral 12-28 tabs, l tablet 14:40: Oral, [place] 00 Daily, 0 Refill(s), supplement Axert 12.5 Yes 12.5 mg = Me moria mg oral 12-28 1 tabs, l tablet 14:40: Oral, [place] 00 Once, PRN for migraine headache, may repeat dose once in 2 hours, # 6 tabs, 0 Refill(s), migrainesm ay repeat dose once in 2 hours Wellbutrin Yes 300 mg, Turner arnoldo XL - Oral, l 14:40: q24hr, 0 [place] 00 Refill(s), migraines Seroquel Yes 100 mg, Memori a 3-09 Oral, l 14:40: Daily, 0 [place] 00 Refill(s), migraines acetaminoph Yes 1 tabs, Mem oria en-HYDROcod 3- Oral, l one 325 14:40: q6hr, 0 [place] mg-5 mg 00 Refill(s), oral tablet pain traMADol 50 Yes 50 mg = 1 M emoria mg oral 3-09 tabs, l tablet 14:40: Oral, [place] 00 q4hr, 0 Refill(s), pain amLODIPine- Yes [...] oral - tabs, l tablet 14:40: Oral, [place] 00 Daily, 0 Refill(s), supplement Axert 12.5 [...] a 3-09 Oral, l 14:40: Daily, 0 [place] 00 Refill(s), migraines acetaminoph Yes 1 tabs, Mem oria en-HYDROcod - Oral, l one 325 14:40: q6hr, 0 [place] mg-5 mg 00 Refill(s), oral tablet pain [...] XL - Oral, l 14:40: q24hr, 0 [place] 00 Refill(s), migraines Seroquel Yes 100 mg, Memori a - Oral, l 14:40: Daily, 0 [place] 00 Refill(s), migraines acetaminoph Yes 1 tabs, Mem oria en-HYDROcod 3- Oral, l one 325 14:40: q6hr, 0 [place] mg-5 mg 00 Refill(s), oral tablet pain traMADol 50 Yes 50 mg = 1 M emoria mg oral 3- tabs, l tablet 14:40: Oral, [place] 00 q4hr, 0 Refill(s), pain amLODIPine- 2016 Yes 1 tabs, Mem oria atorvastati 3-09 Oral, qHS, l n 5 mg-40 14:40: 0 [place] mg oral 00 Refill(s), tablet cholestero l/hyperten will Osteo 2015- Yes Oral, Memoria Bi-Flex 3-09 Daily, 0 l 14:40: Refill(s), [place] 00 supplement Nature's Yes 1,000 mg = [...] a - Oral, l 14:40: Daily, 0 [place] 00 Refill(s), migraines acetaminoph Yes 1 tabs, Mem oria en-HYDROcod 3- Oral, l one 325 14:40: q6hr, 0 Denis mg-5 mg 00 Refill(s), oral tablet pain traMADol 50 Yes 50 mg = 1 M emoria mg oral 3-09 tabs, l tablet 14:40: Oral, [place] 00 q4hr, 0 Refill(s), pain amLODIPine- Yes 1 tabs, Mem oria atorvastati 3-09 Oral, qHS, l n 5 mg-40 14:40: 0 [place] mg oral 00 Refill(s), tablet cholestero l/hyperten [...] repeat dose once in 2 hours Wellbutrin 2016 Yes 300 mg, Turner arnoldo XL 3- Oral, l 14:40: q24hr, 0 [place] 00 Refill(s), migraines Seroquel 2016 Yes 100 mg, Memori a 3- Oral, l 14:40: Daily, 0 [place] 00 Refill(s), migraines acetaminoph 2016 Yes 1 tabs, Mem oria en-HYDROcod 3- Oral, l one 325 14:40: q6hr, 0 [place] mg-5 mg 00 Refill(s), oral tablet pain traMADol 50 Yes 50 mg = 1 M emoria mg oral 3- tabs, l tablet 14:40: Oral, [place] 00 q4hr, 0 Refill(s), pain amLODIPine- Yes 1 tabs, Mem oria atorvastati 3- Oral, qHS, l n 5 mg-40 14:40: 0 Denis mg oral 00 Refill(s), tablet cholestero l/hyperten will Osteo Yes Oral, Memoria Bi-Flex 3-09 Daily, 0 l 14:40: Refill(s), [place] 00 supplement Nature's Yes 1,000 mg = Mem oria Bounty Red 12-28 2 caps, l Krill Oil 14:40: Oral, BID, [place] 500 mg oral 00 0 capsule Refill(s), supplement aspirin 81 Yes 81 mg = 1 Me moria mg oral 3-09 tabs, l tablet 14:40: Oral, Denis 00 Daily, 0 Refill(s), supplement Axert 12.5 2016 Yes 12.5 mg = Me moria mg oral 09 1 tabs, l tablet 14:40: Oral, [place] 00 Once, PRN for migraine headache, may [...] qHS, l n 5 mg-40 14:40: 0 [place] mg oral 00 Refill(s), tablet cholestero l/hyperten will Osteo Yes Oral, Memoria Bi-Flex 3-09 Daily, 0 l 14:40: Refill(s), [place] 00 supplement Nature's Yes 1,000 mg = Mem oria Bounty Red 12-28 2 caps, l Krill Oil 14:40: Oral, BID, [place] r[place] 500 mg oral 00 0 capsule Refill(s), supplement aspirin 81 Yes 81 mg = 1 Me moria mg oral 3-09 tabs, l tablet 14:40: Oral, [place] 00 Daily, 0 Refill(s), supplement Axert 12.5 2015- Yes 12.5 mg = Me moria mg oral 09 1 tabs, l tablet 14:40: Oral, Denis 00 Once, PRN for migraine headache, may repeat dose once in 2 hours, # 6 tabs, 0 Refill(s), migrainesm ay repeat dose once in 2 hours Wellbutrin Yes 300 mg, Turner ranoldo XL 3-09 Oral, l 14:40: q24hr, 0 Denis 00 Refill(s), migraines Seroquel Yes 100 mg, Memori a 3-09 Oral, l 14:40: Daily, 0 [place] 00 Refill(s), migraines acetaminoph Yes 1 tabs, Mem oria en-HYDROcod 3-09 Oral, l one 325 14:40: q6hr, 0 Denis mg-5 mg 00 Refill(s), oral tablet pain traMADol 50 Yes 50 mg = 1 M emoria mg oral 3-09 tabs, l tablet 14:40: Oral, [place] 00 q4hr, 0 Refill(s), pain amLODIPine- Yes 1 tabs, Mem oria atorvastati 3- Oral, qHS, l n 5 mg-40 14:40: 0 Denis mg oral 00 Refill(s), tablet cholestero l/hyperten will Osteo Yes Oral, Memoria Bi-Flex 3-09 Daily, 0 l 14:40: Refill(s), [place] 00 supplement Nature's Yes 1,000 mg = [...] 2 hours Wellbutrin Yes 300 mg, Turner aronldo XL 3-09 Oral, l 14:40: q24hr, 0 [place] 00 Refill(s), migraines Seroquel Yes 100 mg, Memori a 3-09 Oral, l 14:40: Daily, 0 [place] 00 Refill(s), migraines acetaminoph Yes 1 tabs, Mem oria en-HYDROcod 3-09 Oral, l one 325 14:40: q6hr, 0 Denis mg-5 mg 00 Refill(s), oral tablet pain traMADol 50 Yes 50 mg = 1 M emoria mg oral 3-09 tabs, l tablet 14:40: Oral, [place] 00 q4hr, 0 Refill(s), pain amLODIPine- Yes 1 tabs, Mem oria atorvastati 3 Oral, qHS, l n 5 mg-40 14:40: 0 [place] mg oral 00 Refill(s), tablet cholestero l/hyperten will Osteo Yes Oral, Memoria Bi-Flex 3-09 Daily, 0 l 14:40: Refill(s), [place] 00 supplement Nature's Yes 1,000 mg = Mem oria Bounty Red 12-28 2 caps, l Krill Oil 14:40: Oral, BID, He rmann 500 mg oral 00 0 capsule Refill(s), supplement aspirin 81 Yes 81 mg = 1 Me moria mg oral - tabs, l tablet 14:40: Oral, [place] 00 Daily, 0 Refill(s), supplement Axert 12.5 Yes 12.5 mg = Me moria mg oral 12-28 1 tabs, l tablet 14:40: Oral, Denis 00 Once, PRN for migraine headache, may repeat dose once in 2 hours, # 6 tabs, 0 Refill(s), migrainesm ay repeat dose once in 2 hours Wellbutrin Yes 300 mg, Turner arnoldo XL 09 Oral, l 14:40: q24hr, 0 Denis 00 [...] oral 3-09 tabs, l tablet 14:40: Oral, [place] 00 q4hr, 0 Refill(s), pain amLODIPine- Yes 1 tabs, Mem oria atorvastati 3-09 Oral, qHS, l n 5 mg-40 14:40: 0 [place] mg oral 00 Refill(s), tablet cholestero l/hyperten [...] 12-28 1 tabs, l tablet 14:40: Oral, [place] 00 Once, PRN for migraine headache, may repeat dose once in 2 hours, # 6 tabs, 0 Refill(s), migrainesm ay repeat dose once in 2 hours Wellbutrin Yes 300 mg, Turner arnoldo XL 12-28 Oral, l 14:40: q24hr, 0 [place] 00 Refill(s), migraines Immunizations Ordered Immunization Filled Immunization Date Status Commen ts Source Name Name NEOVAX KASSY 2022-06-[address] [facility] FLUCELVAX QUAD 2022-06-[address] [facility]00 [facility] FLUCELVAX QUAD 2022-06-[address] [facility] 2022-04-16 Completed [facility] 00:00:00 [facility] FLUCELVAX QUAD 2021-07-[address] [facility]:00 [facility] FLUCELVAX QUAD 2021-07-[address] [facility]:00 [facility] FLUCELVAX QUAD 2021-07-[address] [facility]:00 [facility] FLUCELVAX QUAD PF 2020-09-01 Completed Method[facility] [...] hunt vaccine-unspecified< 00:00:00 sup>1</sup> Tdap 2019-06-28 Completed [facility] T[facility] 2019-06-28 [facility] Tdap 2019-06-28 [facility] 2019[facility] vaccine<sup>3</sup> Hx influenza 2011-08-15 [facility]-un[facility]< 14:42:42 sup>1</sup> Hx influenza 2011-08-15 Completed [...] sup>1</sup> Hx influenza 2011-08-15 [facility] uhnt vaccine-unspecified< 14:42:42 sup>2</sup> Hx influenza 2011-08-15 Completed [...] kg Systolic blood 2022-09-27 08:05:00 133 mm[Hg] [facility] Diastolic blood 2022-09-27 08:05:00 87 mm[Hg] [facility] Heart rate 2022-09-27 08:05:00 104 /min [facility] Body temperature 2022-09-27 08:05:00 35.56 [facility] Respiratory rate 2022-09-27 08:05:00 20 /min [facility] Oxygen saturation in 2022-09-27 08:05:00 98 /min [facility] Arterial blood by [facility] Pulse oximetry Body weight 2022-09-25 11:28:00 98.2 kg [facility] BMI 2022-09-25 11:28:00 33.91 kg/m2 [facility] Body height 2022-09-23 16:00:00 170.2 cm [facility] Body height 2022-09-08 16:22:00 170.2 cm [facility] Body weight 2022-09-08 16:22:00 97.523 kg [facility] BMI 2022-09-08 16:22:00 33.67 kg/m2 [facility] Systolic blood 2022-08-27 21:24:34 114 mm[Hg] [facility] pressure Diastolic blood 2022-08-27 21:24:34 57 mm[Hg] [facility] pressure Heart rate 2022-08-27 21:24:34 87 /min [facility] Body temperature 2022-08-27 21:24:34 36.61 [facility] Respiratory rate 2022-08-27 21:24:34 18 /min [facility] Oxygen saturation in 2022-08-27 21:24:34 100 /min [facility] Arterial blood by Pulse oximetry Body height 2022-08-27 05:00:00 170.2 cm [facility] Body weight 2022-08-27 05:00:00 107.2 kg [facility] BMI 2022-08-27 05:00:00 37.02 kg/m2 [facility] Temperature Oral (F) 2022-04-19 19:52:00 97.6 [facility] Height 2022-04-19 19:52:00 170.18 cm [facility] Weight 2022-04-19 19:52:00 [facility] BMI Calculated 2022-04-19 19:52:00 [facility] [place] Heart Rate 2021-10-17 21:23:00 [facility] [place] Systolic (mm Hg) 2021-10-17 21:23:00 [facility] [place] Diastolic (mm Hg) 2021-10-17 21:23:00 [facility] [place] Height 2021-10-17 21:23:00 165.1 cm [facility] Weight 2021-10-17 21:23:00 [facility] [place] BMI Calculated 2021-10-17 21:23:00 [facility] [place] Heart Rate 2021-09-09 20:12:00 [facility] Heart Rate 2021-09-09 20:08:00 [facility] [place] Systolic (mm Hg) 2021-09-09 20:08:00 [facility] [place] Diastolic (mm Hg) 2021-09-09 20:08:00 [facility] Height 2021-09-09 20:08:00 165.1 cm [facility] Weight 2021-09-09 20:08:00 [facility] [place] BMI Calculated 2021-09-09 20:08:00 [facility] Systolic (mm Hg) 2020-09-15 15:59:00 Turner [facility] Diastolic (mm Hg) 2020-09-15 15:59:00 [facility] [place] Heart Rate 2020-09-15 15:59:00 [facility] [place] Height 2020-09-15 15:59:00 165.1 cm [facility] Weight 2020-09-15 15:59:00 [facility] [place] BMI Calculated 2020-09-15 15:59:00 [facility] Systolic (mm Hg) 2019-12-16 20:42:00 [facility] [place] Diastolic (mm Hg) 2019-12-16 20:42:00 [facility] Heart Rate 2019-12-16 20:42:00 [facility] [place] Temperature Oral (F) 2019-12-16 20:42:00 98.2 F [facility] [place] Height 2019-12-16 20:42:00 170.18 cm [facility] Weight 2019-12-16 20:42:00 [facility] [place] BMI Calculated 2019-12-16 20:42:00 [facility] Systolic (mm Hg) 2019-10-02 21:53:00 [facility] Diastolic (mm Hg) 2019-10-02 21:53:00 [facility] Heart Rate 2019-10-02 21:53:00 [facility] [place] Temperature Oral (F) 2019-10-02 21:53:00 97.9 F [facility] Height 2019-10-02 21:53:00 165.1 cm [facility] Weight 2019-10-02 21:53:00 [facility] [place] BMI Calculated 2019-10-02 21:53:00 [facility] [place] Height 2019-08-15 14:54:00 165.1 cm [facility] Weight 2019-08-15 14:54:00 [facility] BMI Calculated 2019-08-15 14:54:00 [facility] Systolic (mm Hg) 2019-08-15 14:54:00 [facility] Diastolic (mm Hg) 2019-08-15 14:54:00 [facility] Heart Rate 2019-08-15 14:54:00 [facility] [place] Temperature Oral (F) 2019-08-15 14:54:00 97.6 F [facility] [place] Systolic (mm Hg) 2019-07-31 15:37:00 Turner [facility] Diastolic (mm Hg) 2019-07-31 15:37:00 [facility] [place] Heart Rate 2019-07-31 15:37:00 [facility] [place] Temperature Oral (F) 2019-07-31 15:37:00 98.2 F [facility] Height 2019-07-31 15:37:00 165.1 cm [facility] [place] Weight 2019-07-31 15:37:00 [facility] BMI Calculated 2019-07-31 15:37:00 [facility] [place] Weight 2019-03-27 15:18:00 [facility] [place] BMI Calculated 2019-03-27 15:18:00 [facility] [place] Height 2019-03-27 15:18:00 165.1 cm [facility] [place] Temperature Oral (F) 2019-03-27 15:18:00 98.4 F [facility] Heart Rate 2019-03-27 15:18:00 [facility] Systolic (mm Hg) 2019-03-27 15:18:00 Turner [facility] [place] Diastolic (mm Hg) 2019-03-27 15:18:00 [facility] Height 2019-01-02 19:16:00 165.1 cm [facility] [place] BMI Calculated 2019-01-02 19:16:00 [facility] [place] Weight 2019-01-02 19:16:00 [facility] Heart Rate 2019-01-02 19:16:00 [facility] [place] Systolic (mm Hg) 2019-01-02 19:16:00 Turner [facility] Diastolic (mm Hg) 2019-01-02 19:16:00 [facility] [place] Height 2019-01-02 14:26:00 167.01 cm [facility] BMI Calculated 2019-01-02 14:26:00 [facility] Weight 2019-01-02 14:26:00 [facility] Heart Rate 2019-01-02 14:26:00 [facility] [place] Temperature Oral (F) 2019-01-02 14:26:00 97.9 F [facility] [place] Systolic (mm Hg) 2019-01-02 14:26:00 [facility] Diastolic (mm Hg) 2019-01-02 14:26:00 [facility] Systolic (mm Hg) 2018-07-18 18:33:00 [facility] [place] Diastolic (mm Hg) 2018-07-18 18:33:00 [facility] [place] Heart Rate 2018-07-18 18:33:00 [facility] [place] Weight 2018-07-18 18:33:00 [facility] [place] BMI Calculated 2018-06-11 18:31:00 [facility] [place] Weight 2018-06-11 18:31:00 [facility] [place] Systolic (mm Hg) 2018-06-11 18:31:00 [facility] [place] Diastolic (mm Hg) 2018-06-11 18:31:00 [facility] Height 2018-06-11 18:31:00 170.18 cm [facility] Temperature Oral (F) 2018-06-11 18:31:00 98.3 F [facility] [place] Heart Rate 2018-06-11 18:31:00 [facility] [place] Weight 2018-01-10 16:14:00 [facility] Height 2018-01-10 16:14:00 170.18 cm [facility] [place] BMI Calculated 2018-01-10 16:14:00 [facility] [place] Heart Rate 2018-01-10 16:14:00 [facility] Systolic (mm Hg) 2018-01-10 16:14:00 [place] [facility] [place] Diastolic (mm Hg) 2018-01-10 16:14:00 [facility] [place] BMI Calculated 2018-01-09 15:06:00 [facility] [place] Height 2018-01-09 15:06:00 170.18 cm [facility] Weight 2018-01-09 15:06:00 [facility] Systolic (mm Hg) 2018-01-09 15:06:00 [facility] Diastolic (mm Hg) 2018-01-09 15:06:00 [facility] [place] Heart Rate 2018-01-09 15:06:00 [facility] Temperature Oral (F) 2018-01-09 15:06:00 97.9 F [facility] Weight 2016-11-14 16:17:00 [facility] Height 2016-11-14 16:17:00 170.18 cm [facility] [place] BMI Calculated 2016-11-14 16:17:00 [facility] Respitory Rate 2015-12-31 01:25:00 [facility] [place] Systolic (mm Hg) 2015-12-31 00:50:00 [facility] [place] Respitory Rate 2015-12-31 00:50:00 [facility] [place] Heart Rate 2015-12-31 00:50:00 [facility] Systolic (mm Hg) 2015-12-31 00:40:00 [facility] [place] Respitory Rate 2015-12-31 00:40:00 [facility] [place] Heart Rate 2015-12-31 00:40:00 [facility] Heart Rate 2015-12-31 00:30:00 [facility] Systolic (mm Hg) 2015-12-31 00:30:00 [facility] [place] Temperature Oral (F) 2015-12-30 23:50:00 37.1 Linda [facility] [place] Height 2015-12-30 19:23:00 169 cm [facility] Weight 2015-12-30 19:23:00 [facility] Temperature Oral (F) 2015-12-30 19:23:00 36.6 Linda [facility] [place] Height 2015-12-29 14:13:00 170 cm [facility] [place] Weight 2015-12-29 14:13:00 [facility] [place] Procedures Procedure Date / Time Performing Clinician Source Performed ULTRAFILTRATION HD CRRT 2022-09-26 18:40:00 Vee Coleman [facility] ECG 12-LEAD 2022-09-26 10:57:31 Unknown, 7 [facility] ECG 12-LEAD 2022-09-26 10:57:31 Unknown, 7 [facility] NM MYOCARDIAL PERFUSION 2022-09-26 10:55:00 RoberYaritza [facility] PET/CT (REST & STRESS) Medical C enter TREADMILL 2022-09-26 10:49:30 Unknown, 7 [facility] TOLERANCE(NON-NUCLEAR Medical Ce nter TREADMILL) ECG 12-LEAD 2022-09-26 10:49:10 Unknown, 7 [facility] ECG 12-LEAD 2022-09-26 10:49:10 Unknown, 7 [facility] CBC W/PLT COUNT & AUTO 2022-09-26 03:40:00 Tejal [facility] BASIC METABOLIC PANEL 2022-09-26 03:40:00 Tejal [facility] MAGNESIUM 2022-09-26 03:40:00 Tejal [facility] PHOSPHORUS 2022-09-26 03:40:00 Tejal [facility] CBC W/PLT COUNT & AUTO 2022-09-26 03:40:[address] [facility] HEPATITIS B SURFACE 2022-09-25 08:07:00 Harris Rutledge [facility] HEMODIALYSIS INPATIENT 2022-09-25 07:15:26 Ry [facility] CBC W/PLT COUNT & AUTO 2022-09-25 04:40:00 Tejal [facility] BASIC METABOLIC PANEL 2022-09-25 04:40:00 Tejal [facility] MAGNESIUM 2022-09-25 04:40:00 Tejal [facility] PHOSPHORUS 2022-09-25 04:40:00 Tre Pennington [facility] HEPATITIS C ANTIBODY 2022-09-25 04:40:00 Keith Mantilla [facility] PERIPHERAL BLOOD SMEAR - 2022-09-25 04:40:00 Keith Mantilla [facility] PATHOLOGIST REVIEW Medical [facility] CBC W/PLT COUNT & AUTO 2022-09-25 04:40:[address] [facility] 2D ECHO W/ DOPPLER 2022-09-24 15:49:57 Indio Cardozo [facility] (CW/PW/COLOR) [facility] CBC W/PLT COUNT & AUTO 2022-09-24 04:30:[address] [facility] CBC W/PLT COUNT & AUTO 2022-09-24 04:30:00 Tejal [facility] BASIC METABOLIC PANEL 2022-09-24 04:30:00 Tejal [facility] MAGNESIUM 2022-09-24 04:30:00 eTjal [facility] PHOSPHORUS 2022-09-24 04:30:00 Tejal [facility] PROTEIN ELECTROPHORESIS, 2022-09-24 04:30:00 Yaritza Reid [facility] HIGH SENSITIVITY TROPONIN 2022-09-23 18:09:00 Indio [facility] POTASSIUM 2022-09-23 18:09:00 Tejal [facility] XR CHEST 1 VIEW PORTABLE / 2022-09-23 15:31:00 Indio Cardozo [facility] BEDSIDE [facility] CBC W/PLT COUNT & AUTO 2022-09-23 15:15:[address] [facility] COMPREHENSIVE METABOLIC 2022-09-23 15:15:00 Indio [facility] MAGNESIUM 2022-09-23 15:15:00 Indio Cardozo [facility] PHOSPHORUS 2022-09-23 15:15:00 Celli, [facility] HIGH SENSITIVITY TROPONIN 2022-09-23 15:15:00 Celli, [facility] B-TYPE NATRIURETIC FACTOR 2022-09-23 15:15:00 Cell, Indio [facility] (BNP) [facility] CBC W/PLT COUNT & AUTO 2022-09-23 15:15:[address] [facility] TSH 2022-09-23 15:14:00 Celli, [facility] ECG 12-LEAD 2022-09-23 14:50:19 Unknown, Hl7 [facility] ECG 12-LEAD 2022-09-23 14:50:19 Unknown, Hl7 [facility] ECG 12-LEAD 2022-09-23 14:50:19 Unknown, 7 [facility] PROTHROMBIN TIME WITH INR 2022-08-27 06:57:[address] [facility] COMPREHENSIVE METABOLIC 2022-08-27 06:57:00 Miki Cleveland [facility] PANEL MAGNESIUM LEVEL 2022-08-27 06:57:00 Miki [facility] PHOSPHORUS LEVEL 2022-08-27 06:57:00 Miki [facility] ESTIMATED GFR 2022-08-27 06:57:00 Miki [facility] TROPONIN T 2022-08-27 06:57:00 Miki [facility] ZZCOVID-19 ANTI-SPIKE IGG 2022-08-27 06:56:00 Cristofer [facility] ANTIBODY TITER ZZCOVID-19 SEROLOGY 2022-08-27 06:56:00 [facility] CBC WITH PLATELET AND 2022-08-27 06:56:00 Miki Cleveland [facility] DIFFERENTIAL COVID-19 QUALITATIVE 2022-08-27 04:58:00 Francisco Dean [facility] RT-PCR TROPONIN T 2022-08-27 03:58:00 Miki [facility] ECG ED PRELIMINARY 2022-08-27 03:37:43 ronnie [facility] INTERPRETATION XR CHEST 1 VW PORTABLE 2022-08-27 01:31:25 [facility] COMPREHENSIVE METABOLIC 2022-08-27 01:20:00 [facility] PANEL LIPASE LEVEL 2022-08-27 01:20:00 [facility] TROPONIN T 2022-08-27 01:20:00 Miki [facility] spital B NATRIURETIC PEPTIDE 2022-08-27 01:20:00 [facility] CBC WITH PLATELET AND 2022-08-27 01:20:00 [facility] DIFFERENTIAL ESTIMATED GFR 2022-08-27 01:20:00 [facility] ECG 12-LEAD 2022-08-27 01:03:45 Miki [facility] spital COMPREHENSIVE METABOLIC 2022-08-22 16:47:00 [facility] PANEL Herbert CBC WITH PLATELET AND 2022-08-22 16:47:00 [facility] DIFFERENTIAL Herbert THYROID STIMULATING 2022-08-22 16:47:00 [facility] HORMONE Herbert PARATHYROID HORMONE 2022-08-22 16:47:00 [facility] Herbert VITAMIN D 25 HYDROXY LEVEL 2022-08-22 16:47:00 [facility] NM BONE SCAN 3 PHASE 2022-07-26 18:11:00 [facility] BONE DENSITY 2022-07-26 14:02:48 [facility] BONE DENSITY PERIPHERAL 2022-07-26 14:02:48 [facility] Herbert POC GLUCOSE 2022-06-28 04:49:00 Maddison Wharton spital CBC HEMOGRAM 2022-06-27 10:05:00 Keith Lopez spital BASIC METABOLIC PANEL 2022-06-27 10:05:00 [facility] ESTIMATED GFR 2022-06-27 10:05:00 Clark [facility] XR LUMBAR SPINE 2 OR 3 VW 2022-06-26 21:10:24 John, Keith Cornejo. [facility] XR THORACIC SPINE 2 VW 2022-06-26 21:10:08 [facility] CHEST 1 VW PORTABLE 2022-06-26 19:05:29 Hannams rod [facility] BASIC METABOLIC PANEL 2022-06-26 09:08:00 [facility] PHOSPHORUS LEVEL 2022-06-26 09:08:00 [facility] ESTIMATED GFR 2022-06-26 09:08:00 [facility] TTE COMPLETE, WO CONTRAST, 2022-06-25 15:40:[address] [facility] W DOPPLER ([id number]) MRI THORACIC SPINE WO 2022-06-25 02:11:31 Clark Ontiveros [facility] CONTRAST Herbert MRI LUMBAR SPINE WO 2022-06-25 01:29:36 Clifton Lantigua [facility] CONTRAST [facility] HEPATITIS B CORE ANTIBODY 2022-06-24 17:34:00 Dina Cuello [facility] TOTAL HEPATITIS B SURFACE AB, 2022-06-24 17:34:00 [facility] QUANTITATIVE HEPATITIS B SURFACE 2022-06-24 17:34:00 [facility] ANTIGEN COVID-19 QUALITATIVE 2022-06-24 16:35:00 Clifton Lantigua [facility] RT-PCR [facility] COVID-19 OMICRON VARIANT 2022-06-24 16:35:[address] [facility] QUALITATIVE RT-PCR [facility] POC GLUCOSE 2022-06-24 16:35:00 Maddison Wharton [facility] POC GLUCOSE 2022-06-24 15:09:00 Clifton Lantigua [facility] CT LUMBAR SPINE WO 2022-06-24 13:41:51 Lantigua [facility] CONTRAST [facility] CT RENAL STONE PROTOCOL 2022-06-24 13:41:38 Lantigua [facility] CBC WITH PLATELET AND 2022-06-24 12:44:[address] [facility] DIFFERENTIAL [facility] 2022-06-24 12:44:00 [facility] PANEL [facility] ESTIMATED GFR 2022-06-24 12:44:00 Lantigua [facility] [place] CRITICAL CARE 2022-06-24 12:28:33 LantiguaBobfritzThe [facility] ILL/INJURED PATIENT INIT [facility] 30-74 MIN HEPATITIS B SURFACE 2022-05-20 15:33:[address] [facility] [facility] HEPATITIS B SURFACE 2022-05-20 15:33:[address] [facility] [facility] ANTIBODY [facility] XR CHEST 1 VW PORTABLE 2022-04-29 13:25:18 Rajwinder Kay [facility] METABOLIC 2022-04-29 10:32:[address] [facility] PANEL CBC WITH PLATELET AND 2022-04-29 10:32:00 Amos Pressley [facility] DIFFERENTIAL ESTIMATED GFR 2022-04-29 10:32:00 Amos Pressley [facility] HEMODIALYSIS 2022-04-29 05:06:40 Sil Teran ospital [place] HEPATITIS B CORE ANTIBODY 2022-04-28 20:59:00 Jeffry [facility] TOTAL [place] HEPATITIS B CORE ANTIBODY 2022-04-28 20:59:00 Jeffry [facility] IGM [place] HEPATITIS B SURFACE 2022-04-28 20:59:00 [facility] ANTIGEN [place] HEPATITIS B SURFACE AB, 2022-04-28 20:58:00 Met jesse [facility] QUANTITATIVE [place] HEMODIALYSIS 2022-04-28 15:58:20 Oma Teranist H ospital [facility] TROPONIN T 2022-04-28 15:44:00 [facility] XR CHEST 1 VW PORTABLE 2022-04-28 11:41:07 [facility] TROPONIN T 2022-04-28 11:41:00 [facility] CBC WITH PLATELET AND 2022-04-28 11:41:00 [facility] DIFFERENTIAL COMPREHENSIVE METABOLIC 2022-04-28 11:41:00 [facility] PANEL PROTHROMBIN TIME WITH INR 2022-04-28 11:41:00 [facility] PARTIAL THROMBOPLASTIN 2022-04-28 11:41:00 [facility] TIME (PTT) B NATRIURETIC PEPTIDE 2022-04-28 11:41:00 [facility] PROCALCITONIN 2022-04-28 11:41:00 [facility] CREATINE KINASE, TOTAL 2022-04-28 11:41:00 [facility] (CPK) C-REACTIVE PROTEIN 2022-04-28 11:41:00 [facility] INTERLEUKIN 6 2022-04-28 11:41:00 [facility] FERRITIN LEVEL 2022-04-28 11:41:00 [facility] D-DIMER 2022-04-28 11:41:00 [facility] LDH 2022-04-28 11:41:00 [facility] FIBRINOGEN 2022-04-28 11:41:00 [facility] ESTIMATED GFR 2022-04-28 11:41:00 [facility] RESPIRATORY PATHOGEN PANEL 2022-04-28 09:45:00 [facility] WITH COVID-19 RT-PCR [facility] XR CHEST 1 VW 2022-04-28 08:05:46 Taylor Woodall BLOOD CULTURE, AEROBIC & 2022-04-28 07:49:[address] [facility] ANAEROBIC [facility] CBC WITH PLATELET AND 2022-04-28 07:49:00 Taylor Woodall [facility] DIFFERENTIAL [facility] COMPREHENSIVE METABOLIC 2022-04-28 07:49:00 Taylor Woodall [facility] PANEL [facility] TROPONIN T 2022-04-28 07:49:00 Amos Pressley [facility] B NATRIURETIC PEPTIDE 2022-04-28 07:49:00 [facility] ESTIMATED GFR 2022-04-28 07:49:00 Taylor Woodall ECG ED PRELIMINARY 2022-04-28 07:26:13 Taylor Woodall [facility] INTERPRETATION [facility] ECG 12-LEAD 2022-04-28 07:20:02 Taylor [address] ABDOMEN PELVIS WO 2022-04-16 23:38:27 Cornelio [facility] CONTRAST CBC WITH PLATELET AND 2022-04-16 23:14:00 Cornelio [facility] DIFFERENTIAL COMPREHENSIVE METABOLIC 2022-04-16 23:14:00 Ray [facility] PANEL LIPASE LEVEL 2022-04-16 23:14:00 [facility] ESTIMATED GFR 2022-04-16 23:14:00 Ray [facility] BASIC METABOLIC PANEL 2022-04-14 22:54:00 [facility] Valarie ESTIMATED GFR 2022-04-14 22:54:00 [facility] POC GLUCOSE 2022-04-14 22:04:00 Puneet Lovelace [facility] CT ANGIOGRAM PE CHEST 2022-04-14 00:23:56 Fabiola Rashid [facility] IR VERTEBRO LUM UNI OR BLADO 2022-04-13 19:25:00 Travon, Jena [facility] ECG 12-LEAD 2022-04-13 18:05:39 Greg Snyder [facility] BASIC METABOLIC PANEL 2022-04-13 10:16:00 Radu [facility] CBC WITH PLATELET AND 2022-04-13 10:16:00 Radu [facility] DIFFERENTIAL PROTHROMBIN TIME WITH INR 2022-04-13 10:16:00 Radu Puneetconnie Ott [facility] ESTIMATED GFR 2022-04-13 10:16:00 Radu [facility] TYPE AND SCREEN 2022-04-13 10:16:00 Radu [facility] TROPONIN T 2022-04-13 02:33:00 Radu [facility] HEMODIALYSIS 2022-04-13 01:59:31 [facility] [place] TTE COMPLETE, WO CONTRAST, 2022-04-13 00:15:[address] [facility] W DOPPLER ([id number]) TROPONIN T 2022-04-12 23:10:00 Radu [facility] TROPONIN T 2022-04-12 20:19:00 Radu [facility] HEMODIALYSIS 2022-04-11 13:51:20 Barkristian-Daca, [facility] [place] CBC WITH PLATELET AND 2022-04-11 11:10:00 [facility] DIFFERENTIAL BASIC METABOLIC PANEL 2022-04-11 11:10:00 [facility] PARATHYROID HORMONE 2022-04-11 11:10:00 [facility] VITAMIN D 25 HYDROXY LEVEL 2022-04-11 11:10:00 [facility] DIGOXIN LEVEL 2022-04-11 11:10:00 Baranowska-Daca, [facility] [place] PHOSPHORUS LEVEL 2022-04-11 11:10:00 [facility] ESTIMATED GFR 2022-04-11 11:10:00 Travon [facility] CBC WITH PLATELET AND 2022-04-10 09:45:00 [facility] DIFFERENTIAL BASIC METABOLIC PANEL 2022-04-10 09:45:00 Travon [facility] PROTHROMBIN TIME WITH INR 2022-04-10 09:45:00 Travon [facility] ESTIMATED GFR 2022-04-10 09:45:00 [facility] GASTROIN[facility]INAL PANEL 2022-04-09 22:47:00 [facility]ST 1 VW PORTABLE 2022-04-09 17:34:26 Travon [facility] CBC WITH PLATELET AND 2022-04-09 10:01:00 [facility] DIFFERENTIAL BASIC METABOLIC PANEL 2022-04-09 10:01:00 Travon, [facility] ESTIMATED GFR 2022-04-09 10:01:00 Travon [facility] HEMODIALYSIS 2022-04-08 14:21:31 Sil Teran ospital [place] CBC WITH PLATELET AND 2022-04-08 10:11:00 Travon [facility] DIFFERENTIAL COMPREHENSIVE METABOLIC 2022-04-08 10:11:00 Travon [facility] PANEL ESTIMATED GFR 2022-04-08 10:11:00 Travon [facility] MRI LUMBAR SPINE WO 2022-04-08 02:13:34 [facility] POTASSIUM LEVEL 2022-04-07 18:15:00 Sil Teran H ospital [place] HEPATITIS B SURFACE 2022-04-07 13:46:00 Jeffry [facility] ANTIGEN [place] HEPATITIS B SURFACE 2022-04-07 13:46:[address] [facility] ANTIBODY [place] TROPONIN T 2022-04-07 13:43:00 Gutierrez Leal spital HEMODIALYSIS 2022-04-07 13:16:08 Sil Teran ospital [place] CBC WITH PLATELET AND 2022-04-07 11:21:00 [facility] DIFFERENTIAL PROTHROMBIN TIME WITH INR 2022-04-07 11:21:00 Leal [facility] COMPREHENSIVE METABOLIC 2022-04-07 11:21:00 [facility] THYROID STIMULATING 2022-04-07 11:21:00 [facility] ESTIM[facility] GFR 2022-04-07 11:21:00 Gutierrez Leal spital ZZCOVID-19 ANTI-SPIKE IGG 2022-04-07 06:43:00 [facility] ANTIBODY TITER ZZCOVID-19 SEROLOGY 2022-04-07 06:43:00 [facility] PATIENT SURVEILLANCE TROPONIN T 2022-04-07 06:43:00 Gutierrez Leal spital PROCALCITONIN 2022-04-07 06:43:00 Gutierrez Leal spital URINE CULTURE 2022-04-07 05:18:00 Ellie Crespo spital COVID-19 QUALITATIVE 2022-04-07 04:41[facility]IN[facility]IS SCREEN AND 2022-04-07 04:41:00 Zak [facility] MICROSCOPY, WITH REFLEX TO CULTURE CT ABDOMEN PELVIS WO 2022-04-07 03:51:11 Zak [facility] CONTR[facility] CT LUMBAR SPINE WO 2022-04-07 03:49:[address] [facility] CONTRAST COMPREHENSIVE METABOLIC 2022-04-07 03:31:00 Ellie Crespo [facility] PANEL CBC WITH PLATELET AND 2022-04-07 03:31:00 [facility] DIFFERENTIAL ESTIMATED GFR 2022-04-07 03:31:00 Ellie Crespo spital XR CHEST 1 VW 2022-04-07 03:22:49 Ellie Crespo spital ECG ED PRELIMINARY 2022-04-07 02:44:[address] [facility] INTERPRETATION ECG 12-LEAD 2022-04-07 02:40:03 Gutierrez Leal spital HEMODIALYSIS 2021-12-28 14:28:03 Barkristian-[place], [facility] [place] BASIC METABOLIC PANEL 2021-12-28 03:17:00 BarIra, [facility] [place] ESTIMATED GFR 2021-12-28 03:17:00 Barkristian-Paris, [facility] POC GLUCOSE 2021-12-28 02:29:00 Michelle Golden [facility] R IR VERTEBRO CERVICAL AND 2021-12-27 20:19:[address] [facility] THOR UNI OR BALDO R IR VERTEBROPLASTY EA ADDL 2021-12-27 20:19:56 Michelle Golden [facility] T OR L R NV AN ELECTIVE 2021-12-27 19:47:00 [facility] ENDOTRACHE[facility] AIR[facility]AY HEMODIALYSIS 2021-12-26 20:14:38 [facility] BLOOD CULT[facility], AEROBIC & 2021-12-25 20:28:00 Nilesh Nation [facility] ANAEROBIC URINE CULTURE 2021-12-24 23:56:00 [facility] RENAL STONE PROTOCOL 2021-12-24 23:39:33 Jeffry, [facility] URINALYSIS SCREEN AND 2021-12-24 22:29:00 Jeffry, [facility] MICROSCOPY, WITH REFLEX TO Valarie CULTURE HEMODIALYSIS 2021-12-24 15:08:13 Jeffry [facility] Valarie HC COMPLETE BLD COUNT 2021-12-23 09:55:[address] [facility] W/AUTO DIFF R BASIC METABOLIC PANEL 2021-12-23 09:55:00 [facility] R PROTHROMBIN TIME WITH INR 2021-12-23 09:55:00 [place], Michelle gooden [facility] R URIC ACID LEVEL 2021-12-23 09:55:00 Baranowska-Daca, [facility] ospital Valarie DIGOXIN LEVEL 2021-12-23 09:55:00 Baranowska-Daca, [facility] Valarie CORTISOL LEVEL, AM 2021-12-23 09:55:00 Baranowska-Daca, [facility] HEMOGLOBIN A1C 2021-12-23 09:55:00 Baranowska-Daca, [facility] Hospital[facility] AMYLASE LEVEL 2021-12-23 09:55:00 Baranowska-Daca, [facility] ospital Valarie LIPASE LEVEL 2021-12-23 09:55:00 Baranowska-Daca, [facility] ospital Valarie ESTIMATED GFR 2021-12-23 09:55:00 [place], Michelle [facility] R VITAMIN D 25 HYDROXY LEVEL 2021-12-22 09:33:00 Baranowska-Daca, [facility] PARATHYROID HORMONE 2021-12-22 09:33:00 Baranowska-Daca, [facility] PHOSPHORUS LEVEL 2021-12-22 09:33:00 Baranowska-Daca, [facility] XR SHOULDER 2+ VW RIGHT 2021-12-22 04:05:25 Baranowska-Daca, [facility] HEMODIALYSIS 2021-12-22 03:41:52 Baranowska-Daca, [facility] HospitalValarie MRI LUMBAR SPINE WO 2021-12-21 15:10:25 Niesha Safia [facility] CONTRAST MRI THORACIC SPINE WO 2021-12-21 14:44:08 Safia Scherer [facility] CONTRAST BASIC METABOLIC PANEL 2021-12-21 10:43:00 Baranowska-Daca, [facility] ESTIMATED GFR 2021-12-21 10:43:00 Baranowska-Daca, [facility] ospital Valarie BASIC METABOLIC PANEL 2021-12-20 22:26:00 Barkristian-Paris, [facility] Valarie ESTIMATED GFR 2021-12-20 22:26:00 Barkristian-Peea, [facility] Valarie HEMODIALYSIS 2021-12-20 14:03:25 [facility], [facility] ospital Valarie HC COMPLETE BLD COUNT 2021-12-20 09:43:00 [facility] W/AUTO DIFF Tajdin COMPREHENSIVE METABOLIC 2021-12-20 09:43:00 [facility] PANEL Tajdin MAGNESIUM LEVEL 2021-12-20 09:43:00 [facility] ESTIM[facility] GFR 2021-12-20 09:43:00 [facility] Tajdin TROPONIN T 2021-12-20 00:24:00 Cornelio [facility] HEPATITIS B SURFACE 2021-12-20 00:24:00 [facility] ANTIGEN [facility] HEPATITIS B SURFACE AB, 2021-12-20 00:24:00 [facility], [facility] QUANTITATIVE Valarie HEMODIALYSIS 2021-12-19 22:22:[address] LouisnimaParis, [facility] THYROID STIMULATING 2021-12-19 21:32:00 [facility] HORMONE T4, FREE 2021-12-19 21:32:00 [facility] TROPONIN T 2021-12-19 21:32:00 Angy Mccordist Ho spital COVID-19 QUALITATIVE 2021-12-19 21:22:00 Cornelio [facility] RT-PCR CT LUMBAR SPINE WO 2021-12-19 20:55:41 Cornelio [facility] CONTRAST CT THORACIC SPINE WO 2021-12-19 20:53:28 Cornelio [facility] CONTRAST CT ANGIOGRAM PE CHEST 2021-12-19 20:45:21 Ray, [facility] ECG 12-LEAD 2021-12-19 19:35:11 Ray, [facility] XR THORACIC SPINE 2 VW 2021-12-19 19:17:36 Ray, [facility] HC COMPLETE BLD COUNT 2021-12-19 18:50:00 Ray, [facility] W/AUTO DIFF COMPREHENSIVE METABOLIC 2021-12-19 18:50:00 Ray, [facility] PANEL TROPONIN T 2021-12-19 18:50:00 Ray, [facility] ESTIMATED GFR 2021-12-19 18:50:00 Ray, [facility] LIPASE LEVEL 2021-12-19 18:50:00 Ray, [facility] ECG ED PRELIMINARY 2021-12-19 18:18:35 Ray, [facility] INTERPRETATION XR CHEST 2 VW 2021-11-14 16:02:54 Scott Flower [facility] ospital Diabetic retinal eye 2019-12-11 06:00:00 Memmerrill valle Denis exam<sup>1</sup> Mammogram 2017-05-05 05:00:00 [facility] Her hunt Colonoscopy<sup>2</sup> 2016-11-17 06:00:00 Turner romulo Denis OPEN REDUCTION INTERNAL 2015-12-30 22:13:00 Jr Johnsonew Turner rial Denis FIXATION RADIUS INTRA-ARTICULAR W/3 FRAGMENTS 48140 (Right)<sup>1</sup> Repair of 2015-12-30 06:00:00 Aylin hunt wrist<sup>3</sup> skin cancer removed from 2011-10-22 00:00:00 Mem orial Denis arm Cholecystectomy [facility] [place] Procedure<sup>2</sup> [facility] H ermann Tubal ligation [facility] Eye operation [facility] Biopsy of breast [facility] bilateral radial [facility] kerototomy bilateral tubal ligation Memoria l [place] colonoscopy [facility] [place] Skin cancer of [facility] arm<sup>4</sup> Plan of Care Planned Activity Planned [...] Tdap)] Future Scheduled 2022-10-31 COVID-19 VACCINE (#1) [facility] Test 12:01:44 [code = COVID-19 VACCINE (#1)] Future Scheduled 2022-10-31 65+ PNEUMOCOCCAL [facility] Test 12:01:44 VACCINE (1 - PCV) [code = 65+ PNEUMOCOCCAL VACCINE (1 - PCV)] Future Scheduled 2022-10-31 SHINGLES VACCINES (1 Met [facility] Test 12:01:44 of 2) [code = SHINGLES VACCINES (1 of 2)] Future Scheduled 2022-10-[address] [facility] Test 12:01:44 [code = COLONOSCOPY SCREENING] Future Scheduled 2022-10-[address] [facility] Test 12:01:44 SCREENING [code = BREAST CANCER SCREENING] Future Scheduled 2022-10-31 COVID-19 VACCINE (#1) [facility] Test 12:01:44 [code = COVID-19 VACCINE (#1)] Future Scheduled 2022-10-31 65+ PNEUMOCOCCAL [facility] Test 12:01:44 VACCINE (1 - PCV) [code = 65+ PNEUMOCOCCAL VACCINE (1 - PCV)] Future Scheduled 2022-10-31 SHINGLES VACCINES (1 Met [facility] Test 12:01:44 of 2) [code = SHINGLES VACCINES (1 of 2)] Future Scheduled 2022-10-[address] [facility] Test 12:01:44 [code = COLONOSCOPY SCREENING] Future Scheduled 2022-10-[address] [facility] Test 12:01:44 SCREENING [code = BREAST [...] Future Scheduled 2022-09-01 HEPATITIS B VACCINES [facility] Test 11:07:43 (1 of 3 - 3-dose series) [code = HEPATITIS B VACCINES (1 of 3 - 3-dose series)] Future Scheduled 2022-09-01 COVID-19 VACCINE (#1) [facility] Test 11:07:43 [code = COVID-19 VACCINE (#1)] Future Scheduled 2022-09-01 65+ [facility]OCOCCAL [facility] Test 11:07:43 VACCINE (1 - PCV) [code = 65+ PNEUMOCOCCAL VACCINE (1 - PCV)] Future Scheduled 2022-09-01 SHINGLES VACCINES (1 Met [facility] Test 11:07:43 of 2) [code = SHINGLES VACCINES (1 of 2)] Future Scheduled 2022-09-[address] [facility] Test 11:07:43 malignant neoplasm of cervix (procedure) [code = 443765311] Future Scheduled 2022-09-[address] [facility] Test 11:07:43 [code = COLONOSCOPY SCREENING] Future Scheduled 2022-09-[address] [facility] Test 11:07:43 SCREENING [code = BREAST [...] [facility] l Center breast (procedure) [code = 612404256] Future Scheduled [address] [facility] Test 00:00:00 (combo) [code = CT Medical C enter Colonography (combo)] Future Scheduled [address] [facility] Test 00:00:00 malignant neoplasm of [facility] Center colon (procedure) [code = 638777176] Future Scheduled [address] [facility] [facility] Test 00:00:00 malignant neoplasm of [facility] Center colon (procedure) [code = 721920607] Future Scheduled 1956 DXA SCAN [code = DXA [facility] Test 00:00:00 SCAN] [facility] Future Scheduled [address] [facility] [facility] Test 00:00:00 malignant neoplasm [facility] Center colon (procedure) [code = 362277933] Future Scheduled [address] [facility] [facility] Test 00:00:00 malignant neoplasm of [facility] Center colon (procedure) [code = 424106549] Future Scheduled 1956 Sigmoidoscopy [facility] Cent[facility] r Future Scheduled [address] [facility] [facility] Test 00:00:00 malignant neoplasm of [facility] Center breast (procedure) [code = 006937204] Future Scheduled [address] [facility] Test 00:00:00 (combo) [code = CT Medical C enter Colonography (combo)] Future Scheduled [address] [facility] [facility] Test 00:00:00 malignant neoplasm [facility] Center colon (procedure) [code = 554893122] Future Scheduled [address] [facility] Test 00:00:00 malignant neoplasm of [facility] Center colon (procedure) [code = 936882727] Future Scheduled 1956 DXA SCAN [code = DXA [facility] Test 00:00:00 SCAN] [facility] Future Scheduled [address] [facility] [facility] Test 00:00:00 malignant neoplasm of [facility] Center colon (procedure) [code = 842431578] Future Scheduled [address] [facility] Test 00:00:00 malignant neoplasm of [facility] Center colon (procedure) [code = 275366335] Future Scheduled 1956 [facility]oidoscopy [facility]] [facility] Future Scheduled [address] [facility] Test 00:00:00 malignant neoplasm of [facility]ica [facility] Center breast (procedure) [code = 067943492] Future Scheduled [address] [facility] Test 00:00:00 (combo) [code = CT Medical C enter Colonography (combo)] Future Scheduled [address] [facility] Test 00:00:00 malignant neoplasm of [facility] Center colon (procedure) [code = 582999453] Future Scheduled [address] [facility] Test 00:00:00 malignant neoplasm of [facility] Center colon (procedure) [code = 061429932] Future Scheduled 1956 DXA SCAN [code = DXA [facility] Test 00:00:00 SCAN] [facility] Future Scheduled [address] [facility] [facility] Test 00:00:00 malignant neoplasm of [facility] Center colon (procedure) [code = 587679796] Future Scheduled [address] [facility] Test 00:00:00 malignant neoplasm of [facility]ica [facility] Center colon (procedure) [code = 343008217] Future Scheduled 1956 [facility]oidoscopy [facility] 00:[facility]oscopy] [facility] Future Scheduled [address] [facility] Test 00:00:00 malignant neoplasm of [facility]ica [facility] Center breast (procedure) [code = 168544295] Future Scheduled [address] [facility] Test 00:00:00 (combo) [code = CT Medical C enter Colonography (combo)] Future Scheduled [address] [facility] Test 00:00:00 malignant neoplasm of [facility] Center colon (procedure) [code = 929671270] Future Scheduled [address] [facility] Test 00:00:00 malignant neoplasm of [facility] Center colon (procedure) [code = 002070393] Future Scheduled 1956 DXA SCAN [code = DXA [facility] Test 00:00:00 SCAN] [facility] Future Scheduled [address] [facility] [facility] Test 00:00:00 malignant neoplasm of [facility]ica [facility] Center colon (procedure) [code = 257768482] Future Scheduled [address] [facility] Test 00:00:00 malignant neoplasm of [facility] Center colon (procedure) [code = 767777884] Future Scheduled 1956 [facility]oidoscopy [facility] 00:[facility] S[facility]oscopy] [facility] Future Scheduled [address] [facility] Test 00:00:00 malignant neoplasm of Medica l Center breast (procedure) [code = 694346703] Future Scheduled [address] [facility] Test 00:00:00 (combo) [code = CT Medical C enter Colonography (combo)] Future Scheduled [address] [facility] Test 00:00:00 malignant neoplasm of Medica [facility] Center colon (procedure) [code = 048783572] Future Scheduled [address] [facility] Test 00:00:00 malignant neoplasm of [facility]ica [facility] Center colon (procedure) [code = 993808525] Future Scheduled 1956 DXA SCAN [code = DXA [facility] Test 00:00:00 SCAN] [facility] Future Scheduled [address] [facility] [facility] Test 00:00:00 malignant neoplasm of Medica [facility] Center colon (procedure) [code = 934357197] Future Scheduled [address] [facility] Test 00:00:00 malignant neoplasm of [facility]ica [facility] Center colon (procedure) [code = 949242404] Future Scheduled 1956 Sigmoidoscopy [facility]code [facility] 00:00:[facility] S[facility]oscopy] Medical [facility] r Future Scheduled [address] [facility] Test 00:00:00 malignant neoplasm of Medica l Center breast (procedure) [code = 157676990] Future Scheduled [address] [facility] Test 00:00:00 (combo) [code = CT Medical C enter Colonography (combo)] Future Scheduled [address] [facility] Test 00:00:00 malignant neoplasm of Medica l Center colon (procedure) [code = 875452389] Future Scheduled [address] [facility] Test 00:00:00 malignant neoplasm of [facility] Center colon (procedure) [code = 680784162] Future Scheduled 1956 DXA SCAN [code = DXA [facility] Test 00:00:00 SCAN] [facility] Future Scheduled [address] [facility] Test 00:00:00 malignant neoplasm of [facility] Center colon (procedure) [code = 305069583] Future Scheduled [address] [facility] Test 00:00:00 malignant neoplasm of [facility]ica [facility] Center colon (procedure) [code = 026323283] Future Scheduled 1956 [facility]oidoscopy [facility] 00:00:[facility] S[facility]oscopy] [facility] r Encounters Start End Encounter Admission Attending Care Care Encounter Source Date/Time Date/Time Type Type Clinicians Facility Department ID 2022-11-15 Inpatient HARJEET Macario [facility] [id number] [place] 11:00:00 Cr [id number] [facility] 2022-11-10 Inpatient HARJEET Macario [facility] [id number] [place] 09:00:00 Cr [id number] [facility] 2022-03-13 Inpatient HARJEET King [facility] ENDO [id number] [facility] 09:00:[address] 2022-09-23 2022-09-[facility] [id number] [facility] 14:20[facility] 12:50:00 Encounter Keith Mantilla [facility] 2022-09-23 2022-09-27 Inpatient ER [facility] Cardiology 20 [id number] SLE 14:20:00 12:50:00 TRE 2022-09-23 2022-09-27 [facility] [id number] [facility] 14:20:00 12:50:00 Encounter Keith Mantilla [facility] 2022-09-26 2022-09-[address] [facility] [id number] 00:00:00 00:00:[address] [facility] 2022-09-26 2022-09-[address] [facility] [id number] 00:00:00 00:00:[address] [facility] 2022-09-23 2022-09-23 Outpatient [facility] BC [id number] [facility] 00:00:00 23:59:00 Geeta 2022-09-23 2022-09-[address] [facility] [id number] 00:00:00 00:00:[address] [facility] 2022-09-23 2022-09-[address] [facility] [id number] 00:00:00 00:00:[address] [facility] 2022-09-08 2022-09-08 Travel 1.2.840.1 1.2.447.056 [id number] Methodi 00:00:00 00:00:[address] 3.430.2.7 0.2.7.3.698 Ho spita .3.126925 084.8 l .8 2022-09-05 2022-09-05 Telephone Valerie, 1.2.840.1 [id number] Methodi 00:00:00 00:00:[address] 3.430.2.7 Hospit a .3.167596 l .8 2022-08-26 2022-08-27 Hospital Francisco Dean 1.2.840.1 1 [id number] Methodi 20:01:00 18:10:00 Encounter Salvador Gomez 42692.1.[address] Cristofer, Annabelflar 3.430.2.7 [facility] Nereida .3.627265 l .8 2022-08-26 2022-08-26 Travel 1.2.840.1 1.2.051.180 0341 [id number] Methodi 00:00:00 00:00:[address] 3.430.2.7 0.2.7.3.698 Ho spita .3.233393 084.8 l .8 2022-08-22 2022-08-22 Orders Ontiveros, 1.2.840.1 [id number] Methodi 00:00:00 00:00:00 Only Clark 72375.1.[address] Herbert 3.430.2.7 Hosp naye .3.445306 l .8 2022-08-11 2022-08-11 Office Weston, 1.2.840.1 [id number] Methodi 12:00:00 12:15:00 Visit Clark 33508.1.[address] Herbert 3.430.2.7 Hosp naye .3.242136 l .8 2022-08-11 2022-08-11 Travel 1.2.840.1 1.2.629.928 9262 [id number] Methodi 00:00:00 00:00:[address] 3.430.2.7 0.2.7.3.698 Ho spita .3.873097 084.8 l .8 2022-08-02 2022-08-02 Travel 1.2.840.1 1.2.797.856 1030 [id number] Methodi 00:00:00 00:00:[address] 3.430.2.7 0.2.7.3.698 Ho spita .3.827605 084.8 l .8 2022-07-26 2022-07-26 [facility], 1.2.840.1 [id number] 71876 Methodi 12:10:58 23:59:00 Encounter Clark 33649.1.1 626 s [address] Herbert 3.430.2.7 Hosp naye .3.457275 l .8 2022-07-26 2022-07-26 [facility], 1.2.840.1 [id number] Methodi 09:06:47 12:09:00 Encounter Clark 22128.1.1 624 [address] Herbert 3.430.2.7 Hosp naye .3.328297 l .8 2022-07-26 2022-07-26 [facility] 1.2.840.1 [id number] Methodi 08:25:04 09:05:00 Encounter Clark 38754.1.1 622 s t Herbert 3.430.2.7 Hosp naye .3.643639 l .8 2022-07-26 2022-07-26 Travel 1.2.840.1 1.2.315.026 1816 [id number] Methodi 00:00:00 00:00:[address] 3.430.2.7 0.2.7.3.698 Ho spita .3.732452 084.8 l .8 2022-07-11 2022-07-11 Office Bam, 1.2.840.1 [id number] Methodi 14:15:00 14:15:00 Visit Mary 12442.1.[address] 3.430.2.7 Hospit a .3.020926 l .8 2022-07-11 2022-07-11 Travel 1.2.840.1 1.2.026.267 3152 [id number] Methodi 00:00:00 00:00:[address] 3.430.2.7 0.2.7.3.698 Ho spita .3.787638 084.8 l .8 2022-07-04 2022-07-04 Office Ontiveros, 1.2.840.1 [id number] Methodi 12:45:00 13:22:26 Visit Clark 76433.1.[address] Herbert 3.430.2.7 Hosp naye .3.433929 l .8 2022-07-03 2022-07-03 Travel 1.2.840.1 1.2.194.607 8463 [id number] Methodi 00:00:00 00:00:[address] 3.430.2.7 0.2.7.3.698 Ho spita .3.954514 084.8 l .8 2022-06-24 2022-06-28 [facility] 1.2.840.1 [id number] Methodi 07:21:00 20:54:00 Encounter Maddison Wharton 71685.1.[address] 3.430.2.7 Hospit a .3.983545 l .8 2022-06-27 2022-06-27 Prep for Cerna, 1.2.840.1 [id number] [id number] Methodi 00:00:00 00:00:00 Surgery Taylor D 69098.1.1 190 s t 3.430.2.7 Hospit a .3.918014 l .8 2022-06-24 2022-06-24 Travel 1.2.840.1 1.2.649.368 8792 [id number] Methodi 00:00:00 00:00:[address] 3.430.2.7 0.2.7.3.698 Ho spita .3.651161 084.8 l .8 2022-06-14 2022-06-14 [facility] [id number] [facility] 04:58:00 04:58:00 Quentin 89 [facility] 2022-06-07 2022-06-07 Outpatient LEONEL Conteh [facility] [id number] [facility] 06:37:00 06:37:00 Quentin 64 [facility] 2022-05-20 2022-05-[address] [facility] [id number] 00:00:00 00:00:00 [facility] 2022-05-20 2022-05-[address] [facility] [id number] 00:00:00 00:00:00 [facility] 2022-05-04 2022-05-04 [facility] [id number] [place] 00:00:00 00:00:00 [address] 2022-04-28 2022-04-29 Emergency Taylor Woodall 1.2.840 .1 [id number] Methodi 02:04:00 18:01:00 Laura Carbajal 90303.1.[address] [facility] Pier[facility] 3.430.2.7 [facility] .3.273578 l .8 2022-04-28 2022-04-28 Travel 1.2.840.1 1.2.587.358 5434 [id number] Methodi 00:00:00 00:00:[address] 3.430.2.7 0.2.7.3.698 Ho spita .3.744055 084.8 l .8 2022-04-19 2022-04-20 Outpatient nullFlavo [facility] 3 [id number] Memoria 21:20:00 04:59:59 r Medicine 56 l Carrillo Zhang n 2022-04-19 2022-04-20 Outpatient nullFlavo [facility] 3 [id number] Memoria 21:20:00 04:59:59 r Medicine 56 l Carrillo Zhang n 2022-04-19 2022-04-19 Outpatient Rodriguez, MG [facility] [id number] 16:20:00 23:59:59 Antonella N 56 2022-04-19 2022-04-19 Outpatient MHIE IE [id number] Memoria 16:20:00 16:20:00 56 l Denis 2022-04-16 2022-04-16 Emergency Avis, 1.2.840.1 [id number] Methodi 17:10:00 22:30:00 Ashley 80359.1.1 503 [facility] 3.430.2.7 Hosp naye .3.634514 l .8 2022-04-16 2022-04-16 Travel 1.2.840.1 1.2.443.685 8737 [id number] Methodi 00:00:00 00:00:[address] 3.430.2.7 0.2.7.3.698 Ho spita .3.168772 084.8 l .8 2022-04-06 2022-04-15 Hospital Travon Porras. 1.2.840.1 [id number] Methodi 21:20:00 13:07:00 Encounter Gutierrez Leal 46336.1.1 968 TravonJena 3.430.2.7 [facility]ospita [facility] Lovelace .3.781617 l .8 2022-04-13 2022-04-13 Anesthesia Claudio, 1.2.840.1 [id number] [id number] Methodi 13:41:00 14:30:00 Event Yagretchen 44615.1.[address] Pauline 3.430.2.7 Hospit a .3.175340 l .8 2022-04-06 2022-04-06 Travel 1.2.840.1 1.2.472.631 8687 [id number] Methodi 00:00:00 00:00:[address] 3.430.2.7 0.2.7.3.698 Ho spita .3.862261 084.8 l .8 2022-03-08 2022-03-08 Outpatient Mic Warren HCAPM DAYS 0 [id number] [facility] 07:07:00 07:07:00 79 [facility] 2022-03-08 2022-03-08 Outpatient Mic Warren HCAPM HCAPM F94 [facility] 07:07:00 07:07:00 [facility] 2022-03-06 2022-03-08 Phone nullFlavo [facility] [id number] Memoria 15:25:04 04:59:59 Message r Medicine 17 l Carrillo Zhang ryan 2022-03-06 2022-03-08 Phone nullFlavo [facility] [id number] Memoria 15:25:04 04:59:59 Message r Medicine 17 l Vizcaino Vicente davis 2022-03-06 2022-03-07 Outpatient [facility] [id number] 10:25:04 23:59:59 17 2022-03-03 2022-03-03 Emergency EM Chris Carter HCAPM POLLO LA00 [id number] [facility] 12:08:00 15:51:00 00 [facility] 2022-03-03 2022-03-03 Emergency EM Chris Carter HCAPM HCAPM [id number] [facility] 12:08:00 15:51:00 [facility] 2022-02-27 2022-02-27 Outpatient HARJEET King HCAPM ENDO [id number] [facility] 07:10:00 07:10:00 Adam 92 [facility] 2022-01-18 2022-01-18 Ambulatory nullFlavo [facility] 3 [id number] [facility] 15:15:00 15:15:00 Pre-Reg r Medicine 55 l Carrillo Zhang n 2022-01-18 2022-01-18 Ambulatory nullFlavo [facility] 3 [id number] [facility] 15:15:00 15:15:00 Pre-Reg r Medicine 55 l Carrillo Zhang n 2022-01-18 2022-01-18 Outpatient [facility] [id number] [facility] 10:15:00 10:15:00 55 leonard Barrios 2022-01-18 2022-01-18 Outpatient Rodriguez, [facility] MG [id number] 10:15:00 10:15:00 Antonella N 55 2022-01-16 2022-01-16 Outpatient [facility] MHIE [id number] [facility] 10:30:00 10:30:00 56 leonard Denis 2022-01-16 2022-01-16 Outpatient [facility] IE [id number] [facility] 10:30:00 10:30:00 56 leonard Barrios 2022-01-05 2022-01-05 Patient Phuong Mcginnis [id number] [facility] 00:00:00 00:00:[id number] [id number] Hospit a .[id number] l .8 2021-12-30 2021-12-30 Office Ekandrews, [id number] 7308 Methodi 10:15:00 11:21:59 Visit Mary 31652.1.[address] 3.430.2.7 Hospit a .3.530849 l .8 2021-12-30 2021-12-30 Travel 1.2.840.1 1.2.473.473 0626 [id number] Methodi 00:00:00 00:00:[address] 3.430.2.7 0.2.7.3.698 Ho spita .3.879183 084.8 l .8 2021-12-19 2021-12-28 Hospital [facility] Dean 1.2.840.1 1 [id number] Methodi 12:16:00 16:05:00 Encounter Michelle Golden 77503.1.[address] 3.430.2.7 Hospit a .3.391359 l .8 2021-12-27 2021-12-27 Anesthesia Robert Young 1.2.8 40.1 [id number] Methodi 13:07:00 14:43:00 Event Nishi Shelton 97140.1.[address] 3.430.2.7 Hospit a .3.870589 l .8 2021-12-26 2021-12-26 Telephone Bam 1.2.840.1 [id number] 2100 [id number] Methodi 00:00:00 00:00:[address] 3.430.2.7 Hospit a .3.226768 l .8 2021-12-19 2021-12-21 Phone nullFlavo [facility] 3467 [id number] Memoria 17:07:02 05:59:59 Message r Medicine 16 l Carrillo Zhang ryan 2021-12-19 2021-12-21 Phone nullFlavo [facility] 3467 [id number] Memoria 17:07:02 05:59:59 Message r Medicine 16 l Carrillo Zhang n 2021-12-19 2021-12-20 Outpatient [facility] [id number] 11:07:02 23:59:59 16 2021-12-19 2021-12-19 Travel 1.2.840.1 1.2.421.509 5084 [id number] Methodi 00:00:00 00:00:[address] 3.430.2.7 0.2.7.3.698 Ho spita .3.552002 084.8 l .8 2021-11-15 2021-11-15 Office Ching 1.2.840.1 [id number] 662118 7913 Methodi 16:30:00 16:34:07 Visit Scott 51643.1.[address] 3.430.2.7 Hospit a .3.480763 l .8 2021-11-14 2021-11-14 [facility], 1.2.840.1 [id number] [id number] 44000 Methodi 09:45:00 23:59:00 Encounter Scott 02379.1.[address] 3.430.2.7 Hospit a .3.071336 l .8 2021-11-14 2021-11-14 Travel 1.2.840.1 1.2.000.098 1537 [id number] Methodi 00:00:00 00:00:[address] 3.430.2.7 0.2.7.3.698 Ho spita .3.321669 084.8 l .8 2021-10-28 2021-10-30 Phone nullFlavo [facility] 3467 [id number] Memoria 19:33:53 05:59:59 Message r Medicine 15 leonard Carrillo Zhang ryan 2021-10-28 2021-10-30 Phone nullFlavo [facility] 3467 [id number] Memoria 19:33:53 05:59:59 Message r Medicine 15 leonard Carrillo Zhang ryan 2021-10-28 2021-10-29 Outpatient [facility] [id number] 13:33:53 23:59:59 15 2021-10-19 2021-10-21 Phone nullFlavo [facility] 3467 [id number] Memoria 19:38:03 05:59:59 Message r Medicine 14 leonard Carrillo Zhang ryan 2021-10-19 2021-10-21 Phone nullFlavo [facility] 3467 [id number] Memoria 19:38:03 05:59:59 Message r Medicine 14 leonard PostVizcaino Vicente davis 2021-10-19 2021-10-20 Outpatient [facility] [id number] 13:38:03 23:59:59 14 2021-10-17 2021-10-18 Outpatient nullFlavo [facility] 3 [id number] Memoria 21:15:00 05:59:59 r Medicine 53 l Carrillo davis 2021-10-17 2021-10-18 Outpatient nullFlavo [facility] 3 [id number] Memoria 21:15:00 05:59:59 r Medicine 53 l Carrillo Rameyan n 2021-10-17 2021-10-17 Outpatient Michael [facility] [id number] 15:15:00 23:59:59 Antonella N 53 2021-10-17 2021-10-17 [facility] [id number] Memoria 15:15:00 15:15:00 53 leonard Barrios 2021-09-20 2021-09-20 Office Ahmed, 1.2.840.1 [id number] 8858 Methodi 15:30:00 16:01:04 Visit Scott 50153.1.[address] 3.430.2.7 Hospit a .3.648136 l .8 2021-09-20 2021-09-20 Travel 1.2.840.1 1.2.180.600 9107 [id number] Methodi 00:00:00 00:00:[address] 3.430.2.7 0.2.7.3.698 Ho spita .3.237127 084.8 l .8 2021-09-12 2021-09-13 Between nullFlavo [facility] 3467 [id number] Memoria 14:18:24 14:18:24 Visit r Medicine 62 l Carrillo davis 2021-09-12 2021-09-13 Between nullFlavo [facility] 3467 [id number] Memoria 14:18:24 14:18:24 Visit r Medicine 62 l Carrillo Zhang n 2021-09-12 2021-09-13 Outpatient [facility] [id number] 08:18:24 08:18:24 62 2021-09-12 2021-09-13 Between nullFlavo [facility] 3467 [id number] Memoria 00:56:47 00:56:47 Visit r Medicine 61 leonard davis 2021-09-12 2021-09-13 Between nullFlavo [facility] 3467 [id number] Memoria 00:56:47 00:56:47 Visit r Medicine 61 l Carrillo davis 2021-09-11 2021-09-12 Outpatient [facility] [id number] 18:56:47 18:56:47 61 2021-09-09 2021-09-10 Outpatient nullFlavo [facility] 3 [id number] Memoria 20:00:00 05:59:59 r Medicine 52 l Carrillo Zhang n 2021-09-09 2021-09-10 Outpatient nullFlavo [facility] 3 [id number] Memoria 20:00:00 05:59:59 r Medicine 52 l Carrillo Zhang n 2021-09-09 2021-09-09 Outpatient Rodriguez, [facility] [id number] 14:00:00 23:59:59 Antonella N 52 2021-09-09 2021-09-09 Outpatient MHIE [facility] [id number] Memoria 14:00:00 14:00:00 52 l Denis 2021-09-06 2021-09-08 Phone nullFlavo [facility] 3467 [id number] Memoria 21:38:38 05:59:59 Message r Medicine 13 leonard Zhang n 2021-09-06 2021-09-08 Phone nullFlavo [facility] 3467 [id number] Memoria 21:38:38 05:59:59 Message r Medicine 13 leonard Zhang n 2021-09-06 2021-09-07 Outpatient [facility] MG [id number] 15:38:38 23:59:59 13 2021-09-07 2021-09-07 Office Ekeruo, 1.2.840.1 [id number] 8177 Methodi 11:00:00 11:44:58 Visit Mary 24944.1.[address] 3.430.2.7 Hospit a .3.041701 l .8 2021-09-07 2021-09-07 Travel 1.2.840.1 1.2.447.375 1217 835160 Methodi 00:00:00 00:00:[address] 3.430.2.7 0.2.7.3.698 Ho spita .3.158450 084.8 l .8 2021-09-05 2021-09-06 Between nullFlavo [facility] 3467 [id number] Memoria 15:33:59 15:33:59 Visit r Medicine 59 l Carrillo Zhang n 2021-09-05 2021-09-06 Between nullFlavo [facility] 3467 [id number] Memoria 15:33:59 15:33:59 Visit r Medicine 59 l Carrillo Zhang n 2021-09-05 2021-09-06 Outpatient [facility] [id number] 09:33:59 09:33:59 59 2021-07-14 2021-07-26 Inpatient SOLIPURAM, [facility] [id number] [place] 00:00:00 00:00:00 MICHELLE 329 Method i 2021-07-19 2021-07-19 Outpatient GC_EAH_Brow PRIV PRIV [id number] [place] 00:00:00 00:00:00 n_J [id number] Medica l 2021-07-13 2021-07-13 Outpatient OPPERMANN, [facility] [id number] [place] 00:00:00 00:00:00 KRISTIAN 104 Method i 2021-06-30 2021-06-30 Outpatient AHMED, [facility] [id number] [place] 00:00:00 00:00:00 RAZIUDDIN 273 Meth aiden 2021-06-07 2021-06-07 Outpatient EKERUO, [facility] [id number] [place] 00:00:00 00:00:00 MARY 787 Method i 2021-06-07 2021-06-07 Outpatient DAOURA, [facility] [id number] [place] 00:00:00 00:00:00 NILESH 546 Method i 2021-05-19 2021-05-26 Inpatient MATHIVANAN, [facility] [id number] [place] 00:00:00 00:00:00 COURTNEY 275 Method i 2021-05-12 2021-05-12 Outpatient AHMED, [facility] [id number] [place] 00:00:00 00:00:00 RAZIUDDIN 199 Meth aiden 2021-05-11 2021-05-11 Outpatient EKERUO, [facility] [id number] [place] 00:00:00 00:00:00 MARY 640 Method i 2021-05-062021-05-06 Outpatient EKERUO, [facility] [id number] [place] 00:00:00 00:00:00 MARY 435 Method i 2021-05-06 2021-05-06 Outpatient EKERUO, [facility] [id number] [place] 00:00:00 00:00:00 MARY 537 Method i 2021-05-03 2021-05-03 Outpatient EKERUO, [facility] [id number] [place] 00:00:00 00:00:00 MARY 709 Method i 2021-04-08 2021-04-21 Inpatient SOLSOFIURAM, [facility] [id number] [place] 00:00:00 00:00:00 MICHELLE 685 Method i 2021-03-09 2021-03-09 Outpatient AHMED, [facility] [id number] [place] 00:00:00 00:00:00 RAZIUDDIN 101 Meth aiden 2021-02-24 2021-02-24 Outpatient [facility]Flavo [facility] [id number] Memoria 01:00:00 04:59:00 r Denis 58 l Merino Karen 2021-02-24 2021-02-24 Outpatient [facility]Flavo [facility] [id number] Memoria 01:00:00 04:59:00 r Denis 58 l Merino Karen 2021-02-23 2021-02-23 Outpatient AHMED, [facility] [id number] [facility] 20:00:00 23:59:00 RAZIUDDIN 2021-02-23 2021-02-23 Out[facility] [id number] 20:00:00 23:59:00 Raziuddin 58 2021-02-10 2021-02-10 Outpatient AHMED, [facility] [id number] [place] 00:00:00 00:00:00 RAZIUDDIN 598 Meth aiden 2021-02-03 2021-02-08 Inpatient LAYOAN, [facility] [id number] [place] 00:00:00 00:00:00 COURTNEY 060 Method i 2021-01-20 2021-01-20 Outpatient [facility] [id number] [place] 00:00:00 00:00:[address] 2021-01-18 2021-01-19 Outpatient nullFlavo [facility] 3 [id number] Memoria 19:30:00 04:59:59 r Medicine 51 l Vizcaino Vicente n 2021-01-18 2021-01-19 Outpatient nullFlavo [facility] 3 [id number] Memoria 19:30:00 04:59:59 r Medicine 51 l Carrillo Zhang n 2021-01-18 2021-01-18 Outpatient Rodriguez, [facility] MG [id number] 14:30:00 23:59:59 Antonella N 51 2021-01-18 2021-01-18 Outpatient MHIE IE [id number] Memoria 14:30:00 14:30:00 51 l Denis 2021-01-18 2021-01-18 Outpatient [facility] [id number] [place] 00:00:00 00:00:[address] 2021-01-14 2021-01-15 Between nullFlavo [facility] [id number] Memoria 13:38:03 13:38:03 Visit r Medicine 57 l Vizcaino Vicente davis 2021-01-14 2021-01-15 Between nullFlavo [facility] 3467 [id number] Memoria 13:38:03 13:38:03 Visit r Medicine 57 l Carrillo davis 2021-01-14 2021-01-15 Outpatient MG MG [id number] 08:38:03 08:38:03 57 2021-01-12 2021-01-12 Outpatient ORION, [facility] [id number] [place] 00:00:00 00:00:00 RAZIUDDIN [address] 2020-12-31 2021-01-05 Inpatient MARY ALICE [facility] [id number] [place] 00:00:00 00:00:00 COURTNEY 541 Method i 2020-12-17 2020-12-28 Inpatient MARY ALICE [facility] Vidya [id number] [place] 00:00:00 00:00:00 COURTNEY [address] 2020-10-11 2020-10-18 Inpatient MARY ALICE [facility] [id number] [place] 00:00:00 00:00:00 COURTNEY 271 Method i 2020-09-15 2020-09-16 Outpatient nullFlavo [facility] 3 [id number] Memoria 16:30:00 05:59:59 r Medicine 50 l Carrillo Zhang n 2020-09-15 2020-09-16 Outpatient nullFlavo [facility] 3 [id number] Memoria 16:30:00 05:59:59 r Medicine 50 l Carrillo Zhang n 2020-09-15 2020-09-15 Outpatient Rodriguez, MG MG [id number] 10:30:00 23:59:59 Antonella N 50 2020-09-15 2020-09-15 Outpatient MHIE IE [id number] Memoria 10:30:00 10:30:00 50 l Denis 2020 2020-09-07 Inpatient SOLIPURAM, [facility] [id number] [place] 00:00:00 00:00:00 MICHELLE [address] 2020-08-13 2020-09-01 Inpatient SOLIPURAM, [facility] 012 [id number] [place] 00:00:00 00:00:00 MICHELLE [address] 2020-08-13 2020-08-14 Outpt Diag nullFlavo [facility] [id number] Memoria 18:10:00 04:59:00 Services r Outpatient 06 l Imaging [place] Merino 2020-08-13 2020-08-14 Outpt Diag nullFlavo [facility] [id number] Memoria 18:10:00 04:59:00 Services r Outpatient 06 l Imaging Denis Merino 2020-08-13 2020-08-13 Outpatient Stadnyk, MH29 [id number] 13:10:00 23:59:00 Tyrell Davis 06 2020-08-11 2020-08-12 Between nullFlavo [facility] [id number] Memoria 17:58:19 17:58:19 Visit r Medicine 56 l Carrillo Zhang n 2020-08-11 2020-08-12 Between nullFlavo [facility] [id number] Memoria 17:58:19 17:58:19 Visit r Medicine 56 l Carrillo Zhang n 2020-08-11 2020-08-12 Outpatient MG [facility] [id number] 12:58:19 12:58:19 56 2020-08-03 2020-08-04 Outpatient nullFlavo [facility] 3 [id number] Memoria 15:15:00 04:59:59 r Medicine 49 l Carrillo Zhang n 2020-08-03 2020-08-04 Outpatient nullFlavo [facility] 3 [id number] Memoria 15:15:00 04:59:59 r Medicine 49 l Carrillo Zhang n 2020-08-03 2020-08-03 Outpatient Michael, MG MG [id number] 10:15:00 23:59:59 Antonella N 49 2020-08-03 2020-08-03 Outpatient MHIE MHIE [id number] Memoria 10:15:00 10:15:00 49 l Denis 2020-06-22 2020-06-23 Outpt Diag nullFlavo [facility] [id number] Memoria 17:02:00 04:59:00 Services r Outpatient 05 l Imaging [place] Merino 2020-06-22 2020-06-23 Outpt Diag nullFlavo [facility] [id number] Memoria 17:02:00 04:59:00 Services r Outpatient 05 l Imaging Denis Merino 2020-06-22 2020-06-22 Outpatient Stadnyk, 29 [facility] [id number] 12:02:00 23:59:00 Tyrell N 05 2020-06-17 2020-06-17 Ambulatory nullFlavo [facility] [id number] Memoria 19:00:00 19:00:00 Pre-Reg r Nephrology 46 l Carrillo Zhang n 2020-06-17 2020-06-17 Ambulatory nullFlavo [facility] [id number] Memoria 19:00:00 19:00:00 Pre-Reg r Nephrology 46 l Carrillo Zhang n 2020-06-17 2020-06-17 Outpatient MHIE IE [id number] Memoria 14:00:00 14:00:00 46 l [place] 2020-06-17 2020-06-17 Outpatient Vinnie- MG [facility] [id number] 14:00:00 14:00:00 Darwin [place] 2020-06-10 2020-06-10 Outpatient MHIE MHIE [id number] Memoria 11:15:00 11:15:00 47 l [place] 2020-06-10 2020-06-10 Outpatient MHIE MHIE [id number] Memoria 11:15:00 11:15:00 47 l Denis 2020-06-02 2020-06-03 [place] [id number] Memoria 19:45:00 04:59:59 r Nephrology 48 leonard Zhang ryan 2020-06-02 2020-06-03 [place] [id number] Memoria 19:45:00 04:59:59 r Nephrology 48 leonard Zhang ryan 2020-06-02 2020-06-02 [id number] 14:45:00 23:59:59 Daca, 48 Valarie Carballo 2020-06-02 2020-06-02 Outpatient MHIE MHIE [id number] Memoria 14:45:00 14:45:00 48 leonard Denis 2020-05-20 2020-05-20 Outpatient RACHID [facility] [id number] [place] [address] 00:00:00 00:00:00 FABIOLA Ernandez i 2020-03-23 2020-03-25 Phone nullFlavo MG [id number] Memoria 16:17:50 04:59:59 Message r Nephrology 12 leonard Zhang ryan 2020-03-23 2020-03-25 Phone nullFlavo MG [id number] Memoria 16:17:50 04:59:59 Message r Nephrology 12 leonard Zhang ryan 2020-03-23 2020-03-24 Outpatient MG MG [id number] 11:17:50 23:59:59 12 2020-03-18 2020-03-19 [place] [id number] Memoria 19:00:00 04:59:59 r Nephrology 41 leonard Zhang ryan 2020-03-18 2020-03-19 [place] [id number] Memoria 19:00:00 04:59:59 r Nephrology 41 l Carrillo Zhang ryan 2020-03-18 2020-03-18 [facility] [id number] 14:00:00 23:59:59 Daca, 41 Valarie Carballo 2020-03-18 2020-03-18 Outpatient MHIE MHIE [id number] Memoria 14:00:00 14:00:00 41 leonard Barrios 2020-03-08 2020-03-10 Phone nullFlavo MG [id number] Memoria 18:35:51 04:59:59 Message r Nephrology 11 leonard Barrios 2020-03-08 2020-03-10 Phone nullFlavo MG [id number] Memoria 18:35:51 04:59:59 Message r Nephrology 11 leonard Barrios 2020-03-08 2020-03-09 Outpatient [facility] MG [id number] 13:35:51 23:59:59 11 2020-02-11 2020-02-12 Outpatient nullFlavo [facility] Family 3 [id number] Memoria 15:15:00 04:59:59 r Medicine 45 leonard Zhang n 2020-02-11 2020-02-12 Outpatient nullFlavo [facility] 3 [id number] Memoria 15:15:00 04:59:59 r Medicine 45 leonard Zhang n 2020-02-11 2020-02-11 Outpatient Rodriguez, [facility] MG [id number] 10:15:00 23:59:59 Antonella N 45 2020-02-11 2020-02-11 Ambulatory nullFlavo [facility] 3 [id number] Memoria 15:15:00 15:15:00 Pre-Reg r Medicine 44 leonard Zhang n 2020-02-11 2020-02-11 Ambulatory nullFlavo [facility] 3 [id number] Memoria 15:15:00 15:15:00 Pre-Reg r Medicine 44 leonard Zhang n 2020-02-11 2020-02-11 Outpatient MHIE MHIE [id number] Memoria 10:15:00 10:15:00 45 leonard Barrios 2020-02-11 2020-02-11 Outpatient MHIE MHIE [id number] Memoria 10:15:00 10:15:00 44 leonard Barrios 2020-02-11 2020-02-11 Outpatient Rodriguez, [facility] MG [id number] 10:15:00 10:15:00 Antonella N 44 2020-02-05 2020-02-07 Phone nullFlavo MG [id number] Memoria 13:23:32 04:59:59 Message r Nephrology 10 leonard Zhang n 2020-02-05 2020-02-07 Phone nullFlavo MG [id number] Memoria 13:23:32 04:59:59 Message r Nephrology 10 leonard Zhang ryan 2020-02-05 2020-02-06 Outpatient [facility] MG [id number] 08:23:32 23:59:59 10 2020-02-05 2020-02-06 Between nullFlavo [facility] [id number] Memoria 14:14:54 14:14:54 Visit r Medicine 52 leonard Zhang ryan 2020-02-05 2020-02-06 Between nullFlavo [facility] [id number] Memoria 14:14:54 14:14:54 Visit r Medicine 52 leonard Zhang ryan 2020-02-05 2020-02-06 Outpatient [facility] MG [id number] 09:14:54 09:14:54 52 2020-02-05 2020-02-05 Outpatient MHIE MHIE [id number] Memoria 11:30:00 11:30:00 43 leonard Denis 2020-02-05 2020-02-05 Outpatient MHIE MHIE [id number] Memoria 11:30:00 11:30:00 43 leonard Denis 2020-02-02 2020-02-04 Phone nullFlavo [facility] [id number] Memoria 20:00:15 04:59:59 Message r Medicine 09 leonard Zhang ryan 2020-02-02 2020-02-04 Phone nullFlavo [facility] [id number] Memoria 20:00:15 04:59:59 Message r Medicine 09 leonard Zhang ryan 2020-02-02 2020-02-03 Outpatient MG [facility] [id number] 15:00:15 23:59:59 09 2020-01-30 2020-02-01 Phone nullFlavo [facility] [id number] Memoria 17:18:28 04:59:59 Message r Medicine 08 leonard Zhang ryan 2020-01-30 2020-02-01 Phone nullFlavo [facility] [id number] Memoria 17:18:28 04:59:59 Message r Medicine 08 leonard Zhang ryan 2020-01-30 2020-02-01 Phone nullFlavo [facility] [id number] Memoria 13:26:55 04:59:59 Message r Nephrology 07 leonard Rameycora davis 2020-01-30 2020-02-01 Phone nullFlavo [facility] [id number] Memoria 13:26:55 04:59:59 Message r Nephrology 07 l Carrillo Zhang n 2020-01-30 2020-01-31 Outpatient [facility] MG [id number] 12:18:28 23:59:59 08 2020-01-30 2020-01-31 Outpatient [facility] MG [id number] 08:26:55 23:59:59 07 2019-12-16 2019-12-17 Outpatient nullFlavo [facility] 3 [id number] Memoria 20:15:00 05:59:59 r Medicine 42 l Carrillo Zhang n 2019-12-16 2019-12-17 Outpatient nullFlavo [facility] 3 [id number] Memoria 20:15:00 05:59:59 r Medicine 42 l Carrillo Zhang n 2019-12-16 2019-12-16 Outpatient Rodriguez, MG MG [id number] 14:15:00 23:59:59 Antonella Davis 42 2019-12-16 2019-12-16 Outpatient MHIE MHIE [id number] Memoria 14:15:00 14:15:00 42 leonard Denis 2019-11-13 2019-11-15 Phone nullFlavo [facility] [id number] Memoria 14:22:27 05:59:59 Message r Medicine 06 leonard Zhang ryan 2019-11-13 2019-11-15 Phone nullFlavo [facility] 3467 [id number] Memoria 14:22:27 05:59:59 Message r Medicine 06 leonard davis 2019-11-13 2019-11-14 Outpatient [facility] MG [id number] 08:22:27 23:59:59 06 2019-10-17 2019-10-19 Phone nullFlavo [facility] [id number] Memoria 16:06:04 05:59:59 Message r Medicine 05 leonard Zhang ryan 2019-10-17 2019-10-19 Phone nullFlavo [facility] 3467 [id number] Memoria 16:06:04 05:59:59 Message r Medicine 05 leonard Zhang n 2019-10-17 2019-10-18 Outpatient [facility] MG [id number] 10:06:04 23:59:59 2019-10-02 2019-10-03 Between nullFlavo MG [id number] Memoria 20:05:03 20:05:03 Visit r Nephrology 45 leonard Barrios 2019-10-02 2019-10-03 Between nullFlavo [facility] [id number] Memoria 20:05:03 20:05:03 Visit r Nephrology 45 leonard Barrios 2019-10-02 2019-10-03 Outpatient [facility] [id number] 14:05:03 14:05:03 45 2019-10-02 2019-10-03 Outpatient nullFlavo [facility] [id number] Memoria 20:45:00 05:59:59 r Nephrology 38 leonard Zhang n 2019-10-02 2019-10-03 Outpatient nullFlavo [facility] [id number] Memoria 20:45:00 05:59:59 r Nephrology 38 leonard Zhang n 2019-10-02 2019-10-02 [facility] [id number] 14:45:00 23:59:59 [place], Noel Carballo 2019-10-02 2019-10-02 [facility] [id number] Memoria 14:45:00 14:45:00 38 leonard Barrios 2019-09-26 2019-09-27 Between nullFlavo [facility] [id number] Memoria 00:07:10 00:07:10 Visit r Nephrology 43 leonard Barrios 2019-09-26 2019-09-27 Between nullFlavo [facility] [id number] Memoria 00:07:10 00:07:10 Visit r Nephrology 43 leonard Barrios 2019-09-25 2019-09-26 Outpatient [facility] [id number] 18:07:10 18:07:10 43 2019-09-25 2019-09-25 Outpatient IE IE [id number] Memoria 09:00:00 09:00:00 39 leonard Barrios 2019-09-25 2019-09-25 Outpatient IE IE [id number] Memoria 09:00:00 09:00:00 39 leonard Denis 2019-09-16 2019-09-17 Between nullFlavo [facility] [id number] Memoria 21:47:12 21:47:12 Visit r Medicine 41 leonard Zhang ryan 2019-09-16 2019-09-17 Between nullFlavo [facility] [id number] Memoria 21:47:12 21:47:12 Visit r Medicine 41 leonard Zhang n 2019-09-16 2019-09-17 Outpatient [facility] [id number] 15:47:12 15:47:12 41 2019-08-19 2019-08-20 Between nullFlavo [facility] [id number] Memoria 22:13:13 22:13:13 Visit r Medicine 40 leonard Zhang n 2019-08-19 2019-08-20 Between nullFlavo [facility] [id number] Memoria 22:13:13 22:13:13 Visit r Medicine 40 leonard Zhang n 2019-08-19 2019-08-20 Outpatient [facility] [id number] 17:13:13 17:13:13 40 2019-08-15 2019-08-16 Outpatient nullFlavo [facility] Family 3 [id number] Memoria 14:45:00 04:59:59 r Medicine 40 leonard Zhang n 2019-08-15 2019-08-16 Outpatient nullFlavo [facility] 3 [id number] Memoria 14:45:00 04:59:59 r Medicine 40 leonard Zhang n 2019-08-15 2019-08-15 Outpatient Rodriguez, MG MG [id number] 09:45:00 23:59:59 Antonella N 40 2019-08-15 2019-08-15 Outpatient MHIE MHIE [id number] Memoria 09:45:00 09:45:00 40 leonard Barrios 2019-08-07 2019-08-07 Ambulatory nullFlavo [facility] 3 [id number] Memoria 16:00:00 16:00:00 Pre-Reg r Medicine 36 leonard Zhang n 2019-08-07 2019-08-07 Ambulatory nullFlavo [facility] 3 [id number] Memoria 16:00:00 16:00:00 Pre-Reg r Medicine 36 leonard Zhang n 2019-08-07 2019-08-07 Outpatient MHIE MHIE [id number] Memoria 11:00:00 11:00:00 36 leoanrd Barrios 2019-08-07 2019-08-07 Outpatient Rodriguez, [facility] MG [id number] 11:00:00 11:00:00 Antonella N 36 2019-07-31 2019-08-01 Outpatient nullFlavo [facility] [id number] [facility] 15:00:00 04:59:59 r Nephrology 36 leonard Zhang n 2019-07-31 2019-08-01 Outpatient nullFlavo [facility] [id number] [facility] 15:00:00 04:59:59 r Nephrology 36 leonard Zhang n 2019-07-31 2019-07-31 Outpatient Rodriguez, MG MG [id number] 10:00:00 23:59:59 Antonella N 35 2019-07-31 2019-07-31 Outpatient IE IE [id number] [facility] 12:00:00 12:00:00 38 leonard Barrios 2019-07-31 2019-07-31 Outpatient MHIE MHIE [id number] [facility] 12:00:00 12:00:00 38 leonard Barrios 2019-07-31 2019-07-31 Outpatient MHIE MHIE [id number] [facility] 10:00:00 10:00:00 36 leonard Barrios 2019-07-03 2019-07-05 Phone nullFlavo [facility] Family [id number] [facility] 15:15:06 04:59:59 Message r Medicine 04 leonard Zhang n 2019-07-03 2019-07-05 Phone nullFlavo [facility] [id number] [facility] 15:15:06 04:59:59 Message r Medicine 04 leonard Zhang n 2019-07-03 2019-07-05 Phone nullFlavo [facility] [id number] [facility] 15:10:51 04:59:59 Message r Nephrology 03 leonard Zhang n 2019-07-03 2019-07-05 Phone nullFlavo MG [id number] [facility] 15:10:51 04:59:59 Message r Nephrology 03 leonard Zhang n 2019-07-03 2019-07-04 Outpatient MG MG [id number] 10:15:06 23:59:59 04 2019-07-03 2019-07-04 [id number] 10:10:51 23:59:59 03 2019-07-03 2019-07-03 [place] [id number] [facility] 20:00:00 20:00:00 Pre-Reg r Nephrology 35 l Carrillo Zhang n 2019-07-03 2019-07-03 Ambulatory nullFlavo [facility] [id number] [facility] 20:00:00 20:00:00 Pre-Reg r Nephrology 35 leonard davis 2019-07-03 2019-07-03 Outpatient [facility] [id number] [facility] 15:00:00 15:00:00 35 leonard Barrios 2019-07-03 2019-07-03 [facility] [id number] 15:00:00 15:00:00 Angela Toledo Valarie Carballo 2019-06-29 2019-06-30 Between nullFlavo MG [id number] [facility] 20:15:16 20:15:16 Visit r Nephrology 35 leonard Barrios 2019-06-29 2019-06-30 Between nullFlavo MG [id number] [facility] 20:15:16 20:15:16 Visit r Nephrology 35 leonard Barrios 2019-06-29 2019-06-30 Outpatient [facility] [id number] 15:15:16 15:15:16 34 2019-06-11 2019-06-13 Phone nullFlavo MG [id number] [facility] 15:29:54 04:59:59 Message r Nephrology 02 leonard Barrios 2019-06-11 2019-06-13 Phone nullFlavo MG [id number] [facility] 15:29:54 04:59:59 Message r Nephrology 02 leonard Barrios 2019-06-11 2019-06-12 Outpatient [facility] [id number] 10:29:54 23:59:59 02 2019-06-12 2019-06-12 [place] [id number] Memoria 16:30:00 16:30:00 Pre-Reg r Nephrology 29 l Carrillo davis 2019-06-12 2019-06-12 [place] [id number] Memoria 16:30:00 16:30:00 Pre-Reg r Nephrology 29 l Carrillo davis 2019-06-12 2019-06-12 [place] [id number] Memoria 16:15:00 16:15:00 Pre-Reg r Nephrology 30 l Carrillo davis 2019-06-12 2019-06-12 [place] [id number] Memoria 16:15:00 16:15:00 Pre-Reg r Nephrology 30 leonard davis 2019-06-12 2019-06-12 Ambulatory nullFlavo [facility] Family 3 [id number] Memoria 15:15:00 15:15:00 Pre-Reg r Medicine 31 leonard davis 2019-06-12 2019-06-12 Ambulatory nullFlavo [facility] Family 3 [id number] Memoria 15:15:00 15:15:00 Pre-Reg r Medicine 31 leonard davis 2019-06-12 2019-06-12 Outpatient MHIE MHIE [id number] Memoria 11:30:00 11:30:00 29 leonard Denis 2019-06-12 2019-06-12 Outpatient [place]ska- MG MG [id number] 11:30:00 11:30:00 Peemoira 29 Valarie Haris 2019-06-12 2019-06-12 Outpatient MHIE MHIE [id number] Memoria 11:15:00 11:15:00 30 leonard [place] 2019-06-12 2019-06-12 Outpatient [place]ska- MG MG [id number] 11:15:00 11:15:00 Dacmoira 30 Valarie Haris 2019-06-12 2019-06-12 Outpatient MHIE MHIE [id number] Memoria 10:15:00 10:15:00 31 leonard [place] 2019-06-12 2019-06-12 Outpatient Rodriguez, MG MG [id number] 10:15:00 10:15:00 Antonella Davis 2019-06-09 2019-06-10 Inpatient Chelsea TYSONChelsea [facility] TELE [id number] [place] 10:05:00 17:55:00 EDUIN [facility] 2019-05-12 2019-05-14 Outpatient Chelsea BARRAGAN [facility] TELE [id number] [place] 21:36:00 19:00:00 EDUIN [facility] 2019-05-12 2019-05-13 Outpatient nullFlavo MH Urgent [id number] Memoria 20:40:00 04:59:59 r Care 33 l Lise [place] 2019-05-12 2019-05-13 Outpatient nullFlavo MH Urgent [id number] Memoria 20:40:00 04:59:59 r Care 33 leonard Lezama Denis 2019-05-12 2019-05-12 Outpatient Van MHMG MHMG [id number] 15:40:00 23:59:59 Radha Carlito waters 2019-05-12 2019-05-12 Outpatient MHIE MHIE [id number] Memoria 15:40:00 15:40:00 33 leonard Denis 2019-03-27 2019-03-28 Outpatient nullFlavo [facility] Family 3 [id number] Memoria 15:15:00 04:59:59 r Medicine 32 leonard Zhang ryan 2019-03-27 2019-03-28 Outpatient nullFlavo [facility]MG Family 3 [id number] Memoria 15:15:00 04:59:59 r Medicine 32 leonard Zhang ryan 2019-03-27 2019-03-27 Outpatient Vinnie- MHMG MHMG [id number] 10:15:00 23:59:59 Philly Toledo 2019-03-27 2019-03-27 Outpatient MHIE MHIE [id number] Memoria 10:15:00 10:15:00 32 leonard Denis 2019-01-05 2019-01-06 Between nullFlavo MG Family [id number] Memoria 19:00:16 19:00:16 Visit r Medicine 29 leonard Vizcaino Vicente ryan 2019-01-05 2019-01-06 Between nullFlavo MG Family [id number] Memoria 19:00:16 19:00:16 Visit r Medicine 29 leonard Vizcaino Vicente davis 2019-01-05 2019-01-06 Outpatient MG MG [id number] 14:00:16 14:00:16 29 2019-01-02 2019-01-03 Between nullFlavo MHMG [id number] Memoria 15:02:37 15:02:37 Visit r Nephrology 27 leonard Vizcaino Vicente davis 2019-01-02 2019-01-03 Between nullFlavo MHMG [id number] Memoria 15:02:37 15:02:37 Visit r Nephrology 27 leonard Carrillo davis 2019-01-02 2019-01-03 Outpatient MG MHMG [id number] 10:02:37 10:02:37 27 2019-01-02 2019-01-03 Outpatient nullFlavo [facility] [id number] Memoria 18:45:00 04:59:59 r Nephrology 28 leonard Zhang n 2019-01-02 2019-01-03 [place] [id number] Memoria 18:45:00 04:59:59 r Nephrology 28 l Carrillo Zhang n 2019-01-02 2019-01-03 Outpatient nullFlavo MG Family 3 [id number] Memoria 14:15:00 04:59:59 r Medicine 22 leonard Zhang n 2019-01-02 2019-01-03 Outpatient nullFlavo MG Family 3 [id number] Memoria 14:15:00 04:59:59 r Medicine 22 leonard Zhang n 2019-01-02 2019-01-02 Outpatient [place]ska- [facility] [id number] 13:45:00 23:59:59 Reynold [place] 2019-01-02 2019-01-02 Outpatient Rodriguez, [facility] [id number] 09:15:00 23:59:59 Antonella Davis 22 2019-01-02 2019-01-02 Outpatient MHIE MHIE [id number] Memoria 13:45:00 13:45:00 28 leonard Barrios 2019-01-02 2019-01-02 Outpatient MHIE MHIE [id number] Memoria 09:15:00 09:15:00 22 leonard Barrios 2018-12-31 2019-01-01 Between nullFlavo MG [id number] Memoria 23:59:47 23:59:47 Visit r Nephrology 26 leonard Zhang ryan 2018-12-31 2019-01-01 Between nullFlavo MG [id number] Memoria 23:59:47 23:59:47 Visit r Nephrology 26 leonard Zhang ryan 2018-12-31 2019-01-01 Outpatient MG MG [id number] 18:59:47 18:59:47 26 2018-12-27 2018-12-28 Between nullFlavo MG [id number] Memoria 22:00:33 22:00:33 Visit r Nephrology 24 l Carrillo Zhang ryan 2018-12-27 2018-12-28 Between nullFlavo MG [id number] Memoria 22:00:33 22:00:33 Visit r Nephrology 24 leonard Zhang n 2018-12-27 2018-12-28 Outpatient MG MG [id number] 16:00:33 16:00:33 24 2018-12-27 2018-12-28 Between nullFlavo MG [id number] Memoria 04:48:44 04:48:44 Visit r Nephrology 23 leonard davis 2018-12-27 2018-12-28 Between nullFlavo MG [id number] Memoria 04:48:44 04:48:44 Visit r Nephrology 23 leonard Zhang n 2018-12-26 2018-12-27 Outpatient MHMG MG [id number] 22:48:44 22:48:44 23 2018-11-14 2018-11-14 [place] [id number] Memoria 20:30:00 20:30:00 Pre-Reg r Nephrology 27 leonard davis 2018-11-14 2018-11-14 [place] [id number] Memoria 20:30:00 20:30:00 Pre-Reg r Nephrology 27 l Carrillo Zhang n 2018-11-14 2018-11-14 [place] [id number] Memoria 18:40:00 18:40:00 Pre-Reg r Nephrology 24 leonard davis 2018-11-14 2018-11-14 [place] [id number] Memoria 18:40:00 18:40:00 Pre-Reg r Nephrology 24 leonard davis 2018-11-14 2018-11-14 Outpatient MHIE IE [id number] Memoria 14:30:00 14:30:00 27 leonard Barrios 2018-11-14 2018-11-14 Outpatient Baranowska- MHMG MG [id number] 14:30:00 14:30:00 Cordell [place] 2018-11-14 2018-11-14 Outpatient [place]ska- MHMG MG [id number] 14:30:00 14:30:00 Cordell [place] 2018-11-14 2018-11-14 Outpatient MHIE IE [id number] Memoria 12:40:00 12:40:00 24 leonard Barrios 2018-11-14 2018-11-14 [facility] [id number] 12:40:00 12:40:00 Yesi [place] 2018-11-14 2018-11-14 [facility] [id number] 12:40:00 12:40:00 Yesi [place] 2018-11-07 2018-11-07 Ambulatory nullFlavo [facility] [id number] Memoria 15:30:00 15:30:00 Pre-Reg r Internal 25 l [facility] 2018-11-07 2018-11-07 Ambulatory nullFlavo [facility] [id number] Memoria 15:30:00 15:30:00 Pre-Reg r Internal 25 [facility] 2018-11-07 2018-11-07 Outpatient [facility] [id number] Memoria 09:30:00 09:30:[address] [place] [address] 2018-11-07 2018-11-07 Outpatient [facility] [id number] 09:30:00 09:30:00 25 2018-07-11 2018-08-10 Ambulatory nullFlavo [facility] [id number] Memoria 12:45:00 12:45:00 Pre-Reg r Internal 23 [facility] 2018-07-11 2018-08-10 Ambulatory nullFlavo [facility] [id number] Memoria 12:45:00 12:45:00 Pre-Reg r Internal 23 [facility] 2018-07-11 2018-08-10 Outpatient MG [facility] [id number] 07:45:00 07:45:00 23 2018-07-18 2018-07-19 [place] [id number] Memoria 19:15:00 04:59:59 r Nephrology 26 l Carrillo Zhang ryan 2018-07-18 2018-07-19 [place] [id number] Memoria 19:15:00 04:59:59 r Nephrology 26 l Carrillo Zhang ryan 2018-07-18 2018-07-19 [place] [id number] Memoria 18:00:00 04:59:59 r Nephrology 21 l Vizcaino Vicente davis 2018-07-18 2018-07-19 Outpatient nullFlavo [id number] Memoria 18:00:00 04:59:59 r Nephrology 21 l Carrillo Zhang ryan 2018-07-18 2018-07-18 [id number] 14:15:00 23:59:59 DacKim pizarro Valarie Carballo 2018-07-18 2018-07-18 [id number] 13:00:00 23:59:59 Dacmoira 21 Valarie Carballo 2018-07-18 2018-07-18 Outpatient IE IE [id number] Memoria 14:15:00 14:15:00 26 leonard Denis 2018-07-18 2018-07-18 Outpatient MHIE IE [id number] Memoria 13:00:00 13:00:00 21 leonard Denis 2018-07-11 2018-07-11 Outpatient MHIE IE [id number] Memoria 07:45:00 07:45:00 23 leonard Denis 2018-06-11 2018-06-12 Outpatient nullFlavo MG Family 3 [id number] Memoria 18:30:00 04:59:59 r Medicine 20 l Carrillo Zhang ryan 2018-06-11 2018-06-12 Outpatient nullFlavo MG Family 3 [id number] Memoria 18:30:00 04:59:59 r Medicine 20 leonard Zhang n 2018-06-11 2018-06-11 Outpatient Rodriguez, MG MG [id number] 13:30:00 23:59:59 Antonella Davis 20 2018-06-11 2018-06-11 Outpatient IE IE [id number] Memoria 13:30:00 13:30:00 20 leonard Denis 2018-01-10 2018-01-11 [place] [id number] Memoria 16:00:00 04:59:59 r Nephrology 19 l Carrillo Zhang ryan 2018-01-10 2018-01-11 [place] [id number] Memoria 16:00:00 04:59:59 r Nephrology 19 leonard Zhang ryan 2018-01-10 2018-01-10 [facility] [id number] 11:00:00 23:59:59 Daca 19 Valarie Carballo 2018-01-10 2018-01-10 Outpatient Vinnie- MHMG MG [id number] 11:00:00 23:59:59 Ludivina Toledo Valarie Haris 2018-01-10 2018-01-10 Outpatient MHIE MHIE [id number] Memoria 11:00:00 11:00:00 19 leonard Denis 2018-01-09 2018-01-10 Outpatient nullFlavo MHMG Family 3 [id number] Memoria 15:00:00 04:59:59 r Medicine 18 leonard Vizcaino Vicente ryan 2018-01-09 2018-01-10 Outpatient nullFlavo MHMG Family 3 [id number] Memoria 15:00:00 04:59:59 r Medicine 18 leonard PostVizcaino Vicente davis 2018-01-09 2018-01-09 Outpatient Rodriguez, MHMG MHMG [id number] 10:00:00 23:59:59 Antonella N 18 2018-01-09 2018-01-09 Outpatient Rodriguez, MHMG MG [id number] 10:00:00 23:59:59 Antonella N 18 2018-01-09 2018-01-09 Outpatient MHIE MHIE [id number] Memoria 10:00:00 10:00:00 18 leonard Barrios 2017-07-19 2017-07-19 Outpatient MHIE MHIE [id number] Memoria 10:40:00 10:40:00 16 leonard Barrios 2017-07-19 2017-07-19 Outpatient MHIE MHIE [id number] Memoria 10:40:00 10:40:00 16 leonard Barrios 2017-06-27 2017-06-27 Outpatient MHIE MHIE [id number] Memoria 11:30:00 11:30:00 17 leonard Barrios 2017-06-27 2017-06-27 Outpatient MHIE MHIE [id number] Memoria 11:30:00 11:30:00 17 leonard Barrios 2017-03-01 2017-03-01 Outpatient MHIE MHIE [id number] Memoria 11:40:00 11:40:00 11 leonard Barrios 2017-03-01 2017-03-01 Outpatient MHIE MHIE [id number] Memoria 11:40:00 11:40:00 11 leonard Barrios 2016-12-26 2016-12-26 Outpatient MHIE MHIE [id number] Memoria 14:30:00 14:30:00 15 leonard Barrios 2016-12-26 2016-12-26 Outpatient MHIE MHIE [id number] Memoria 14:30:00 14:30:00 15 leonard Barrios 2016-11-27 2016-11-27 Outpatient MHIE MHIE [id number] Memoria 10:00:00 10:00:00 08 leonard Barrios 2016-11-27 2016-11-27 Outpatient MHIE MHIE [id number] Memoria 10:00:00 10:00:00 08 leonard Barrios 2016-11-17 2016-11-17 Bedded nullFlavo [facility] [id number] Memoria 11:48:35 14:30:00 Outpatient r Denis 13 leonard Jones 2016-11-17 2016-11-17 Bedded nullFlavo [facility] [id number] Memoria 11:48:35 14:30:00 Outpatient connie Barrios 13 leonard Jones 2016-11-17 2016-11-17 Outpatient Smith, SL MHSL [id number] 05:48:35 08:30:00 Reinaldo Valle 13 2016-11-09 2016-11-09 Outpatient MHIE MHIE [id number] Memoria 13:15:00 13:15:00 14 leonard Barrios 2016-11-09 2016-11-09 Outpatient MHIE MHIE [id number] Memoria 13:15:00 13:15:00 14 leonard Barrios 2016-10-18 2016-10-18 Outpatient MHIE MHIE [id number] Memoria 09:30:00 09:30:00 12 leonard Barrios 2016-10-18 2016-10-18 Outpatient MHIE MHIE [id number] Memoria 09:30:00 09:30:00 13 leonard Barrios 2016-10-18 2016-10-18 Outpatient MHIE MHIE [id number] Memoria 09:30:00 09:30:00 12 leonard Barrios 2016-10-18 2016-10-18 Outpatient MHIE MHIE [id number] Memoria 09:30:00 09:30:00 13 leonard Barrios 2016-10-12 2016-10-12 Outpatient MHIE MHIE [id number] Memoria 10:20:00 10:20:00 09 leonard Barrios 2016-10-12 2016-10-12 Outpatient [facility] [id number] Memoria 10:20:00 10:20:00 09 leonard [place] 2016-07-13 2016-07-13 Outpatient [facility] [id number] Memoria 13:00:00 13:00:00 04 leonard [place] 2016-07-13 2016-07-13 Outpatient [facility] [id number] Memoria 13:00:00 13:00:00 04 leonard Denis 2016-05-24 2016-05-24 Outpatient [facility] [id number] Memoria 11:15:00 11:15:00 06 leonard Denis 2016-05-24 2016-05-24 Outpatient [facility] [id number] Memoria 11:15:00 11:15:00 06 leonard [place] 2016-04-13 2016-05-13 OP Therapy nullFlavo SMR [id number] Memoria 13:00:00 04:59:00 Patients connie Stout 03 leonard Barrios 2016-04-13 2016-05-13 OP Therapy nullFlavo SMR [id number] Memoria 13:00:00 04:59:00 Patients connie Stout 03 leonard Barrios 2016-04-13 2016-05-12 Outpatient Johnson, 2.16.840. 2.16.840.1. 3 [id number] 08:00:00 23:59:00 Jose Francisco M [id number] [id number] 5.55 2016-03-14 2016-04-13 OP Therapy nullFlavo SMR [id number] Memoria 17:39:00 04:59:00 Patients connie Stout 02 leonard Rameyann 2016-03-14 2016-04-13 OP Therapy nullFlavo SMR [id number] Memoria 17:39:00 04:59:00 Patients connie Girish 02 leonard Barrios 2016-03-14 2016-04-12 Outpatient Johnson, 2.16.840. 2.16.840.1. 3 [id number] 12:39:00 23:59:00 Jose Francisco M [id number] 3.615.55 5.55 2016-03-09 2016-04-08 OP Therapy nullFlavo SMR [facility] [id number] Memoria 19:00:00 04:59:00 Patients r [place] 01 leonard [place] 2016-03-09 2016-04-08 OP Therapy nullFlavo SMR Sugar [id number] Memoria 19:00:00 04:59:00 Patients r [place] 01 [facility] 2016-03-09 2016-04-07 Outpatient Elizabeth 2.16.840. 2.16.840.1. 3 [id number] 14:00:00 23:59:00 Jose Francisco Cecelia [id number] 3.615.69 5.69 2016-03-13 2016-03-14 Outpt Diag nullFlavo [facility] [id number] Memoria 16:14:00 04:59:00 Services r Outpatient 04 l Imaging Denis Merino 2016-03-13 2016-03-14 Outpt Diag nullFlavo [facility] [id number] Memoria 16:14:00 04:59:00 Services r Outpatient 04 l Imaging Denis Merino 2016-03-13 2016-03-13 Outpatient [place] [id number] 11:14:00 23:59:00 Jv Toledoeta Haris 2016-02-08 2016-03-09 OP Therapy nullFlavo SMR Sugar [id number] Memoria 19:00:00 04:59:00 Patients r [place] 00 leonard [place] 2016-02-08 2016-03-09 OP Therapy nullFlavo SMR Sugar [id number] Memoria 19:00:00 04:59:00 Patients r [place] 00 [facility] 2016-02-08 2016-03-08 Outpatient Elizabeth 2.16.840. 2.16.840.1. 3 [id number] 14:00:00 23:59:00 Jose Francisco Rai [id number]. [id number] 3.615.69 5.69 2016-03-02 2016-03-02 [facility] [id number] Memoria 10:20:00 10:20:00 [facility] 2016-03-02 2016-03-02 [facility] [id number] Memoria 10:20:00 10:20:00 [facility] 2016-02-29 2016-03-01 Outpt Diag nullFlavo [facility] [id number] Memoria 14:59:00 04:59:00 Services r Outpatient 03 l Imaging Denis Soto 2016-02-29 2016-03-01 Outpt Diag nullFlavo [facility] [id number] Memoria 14:59:00 04:59:00 Services r Outpatient 03 l Imaging Denis Soto 2016-02-29 2016-02-29 Outpatient Marsha [id number] [id number] 09:59:00 23:59:00 At[place] 2016-01-20 2016-01-21 Outpt Diag nullFlavo [facility] [id number] Memoria 18:11:00 04:59:00 Services r Outpatient 01 l Imaging Denis Mares 2016-01-20 2016-01-21 Outpt Diag nullFlavo [facility] [id number] Memoria 18:11:00 04:59:00 Services r Outpatient 01 l Imaging Denis Merino 2016-01-20 2016-01-20 Outpatient LazoMarsha dowell [id number] [id number] 13:11:00 23:59:00 Atkins 2015-12-30 2015-12-30 Outpatient 2.16.840. 2.16.840.1. 3 [id number] Memoria 12:50:31 19:25:00 [id number] 3.2081.20 81.2000 [facility] n [facility] 2015-12-30 2015-12-30 Outpatient nullFlavo [facility] [id number] Memoria 12:50:31 19:25:00 r l Denis 2015-12-30 2015-12-30 Outpatient nullFlavo [facility] [id number] Memoria 12:50:31 19:25:00 r l Denis 2015-11-30 2015-12-01 Outpt Diag nullFlavo [facility] [id number] Memoria 12:58:00 05:59:00 Services r Outpatient 00 l Imaging Denis [place] 2015-11-30 2015-12-01 Outpt Diag nullFlavo [facility] [id number] Memoria 12:58:00 05:59:00 Services r Outpatient 00 l Imaging [place] Merino 2015-11-30 2015-11-30 Outpatient LazoMarsha dowell [id number] 06:58:00 23:59:00 Atkins 00 2015-11-19 2015-11-19 [facility] [id number] Memoria 10:15:00 10:15:00 02 leonard [place] 2015-11-19 2015-11-19 Outpatient [facility] [id number] Memoria 10:15:00 10:15:00 02 leonard Barrios 2015-09-02 2015-09-02 Outpatient [facility] [id number] Memoria 11:30:00 11:30:00 00 leonard Barrios 2015-09-02 2015-09-02 Outpatient [facility] [id number] Memoria 11:30:00 11:30:00 00 [facility] 2013-12-18 2013-12-18 Outpatient nullFlavo [facility] [id number] Memoria 01:16:00 05:59:00 r Denis [id number] [address] 2013-12-18 2013-12-18 Outpatient nullFlavo [facility] [id number] Memoria 01:16:00 05:59:00 r Denis [id number] [address] 2013-12-17 2013-12-17 Outpatient [facility] 2.16.840. 2.16.840. 1. [id number] 19:16:00 23:59:00 , Yusef [id number]. [id number] Bernadette 3.615.0.1 5.0.289 21 3943-02-26 2013-12-17 Outpatient nullFlavo [id number] Memoria 19:16:00 19:16:00 r [place] 01 [facility] 2013-12-17 2013-12-17 Outpatient nullFlavo [id number] Memoria 19:16:00 19:16:00 r [place] 01 [facility] 2013-12-02 2013-12-02 Outpatient nullFlavo [id number] Memoria 19:43:00 19:43:00 r [place] 00 Denis 2013-12-02 2013-12-02 Outpatient nullFlavo [id number] Memoria 19:43:00 19:43:00 r [place] 00 [place] Results Test Description Test Time Test Comments Results Result Sour e Comments PET/CT, CARDIAC 2022-09-26 Reason for PERF REST AND 16:05:00 exam:->angina STRESS [facility] CENTERName: FREDDIE SAUCEDO : 1955 Sex: F FINAL REPORT PROCEDURE: MYOCARDIAL PERFUSION PET/CT IMAGING (Rest/Stress)CPT CODE: 36380 INDICATION: Evaluation for chest pain CARDIOVASCULAR PROFILE:CAD [...] s not applicable for dialysis will moseley Inspecting Machine Adjuster ID - MARCOSpecimen slightly [id number] 05:55:08 Test Item Value Reference Range Interpretation Comments MAGNESIUM (BEAKER) 1.9 mg/dL 1.6-2.6 Specimen slightly (test code = 627) hemolyzed Inspecting Machine Adjuster ID - [id number] 05:55:08 Test Item Value Reference Range Interpretation Comments PHOSPHORUS (BEAKER) 3.4 mg/dL 2.3-4.7 Specimen slightly (test code = 604) hemolyzed Inspecting Machine Adjuster ID - MARCOCBC W/PLT COUNT & AUTO [id number] 04:43:14 Test Item Value Reference Range Interpretation [...] 2801) PROTEIN ELECTROPHORESIS, SERUM WITH REFLEX TO [id number] 16:42:33 Test Item Value Reference Range Interpretation [...] 2615) malnutrition or a protein losing state. [id number] Crystal Moore MD (BEAKER) (test code = (electronic signature) 2616) PROTEIN TOTAL SERUM, 6.0 gm/dL 6.0-8.3 SPEP (BEAKER) (test code = 2660) Clinical Fishing Gear Mechanic - SFOperator ID - LETICIA BOperator ID - ADMPERIPHERAL BLOOD SMEAR - PATHOLOGIST [id number] 14:33:15 Test Item Value Reference Range Interpretation Comments PERIPHERAL SMR REVIEW Cell counts confirmed. (BEAKER) (test code = There is macrocytic 2640) anemia. Platelets are decreased with no significant platelet clumps or satellitism identified. [id number] Evan Dixon (BEAKER) (test code = Milka 5220) HEPATITIS B SURFACE [id number] 10:29:09 Test Item Value Reference Range Interpretation Comments HEPATITIS B SURFACE ANTIGEN (2) Nonreactive Nonreactive (BEAKER) (test code = 9945) Specimen is considered negative for HBsAg.Transthoracic 2D echo w/ doppler (cw/pw/color)2022-09-25 08:20:07Ejection FractionSLEH ECHO HEARTLAB MKCKESSON [facility] w/ doppler (cw/pw/color) 2022-09-25 08:20:07Ejection FractionSLE ECHO [facility] (cw/pw/color)2022-09-25 08:20:07Ejection FractionSLE ECHO [facility] w/ doppler (cw/pw/color)2022-09-25 08:20:07Ejection FractionSLE ECHO HEARTLAB [facility] Transthoracic 2D echo w/ doppler (cw/pw/color)2022-09-25 08:20:07Ejection FractionSLE ECHO [facility] Transthoracic 2D echo w/ doppler (cw/pw/color)2022-09-25 08:20:07[facility] [id number] 05:41:18 Test Item Value Reference Range Interpretation Comments HEPATITIS C ANTIBODY (BEAKER) Nonreactive Nonreactive (test code = 367) Inspecting Machine Adjuster ID - EMMANUELBASIC METABOLIC [id number] 05:22:16 Test Item Value Reference Range Interpretation [...] high >=90 G2 Mildly decreased 60-89 G3a Mild ly to moderately 45-5 9 G3b Moderately to [...] not appl icable for dialysis patien ts Inspecting Machine Adjuster ID - [id number] 05:21:47 Test Item Value Reference Range Interpretation Comments MAGNESIUM (BEAKER) (test code = 2.0 mg/dL 1.6-2.6 627) Inspecting Machine Adjuster ID - [id number] 05:21:47 Test Item Value Reference Range Interpretation Comments PHOSPHORUS (BEAKER) (test code = 4.8 mg/dL 2.3-4.7 H 604) Inspecting Machine Adjuster ID - QUIANAUELCBC W/PLT COUNT & AUTO [id number] 05:05:48 Test Item Value Reference Range Interpretation [...] (BEAKER) (test code = 2801) BASIC METABOLIC [id number] 05:39:02 Test Item Value Reference Range Interpretation [...] not appl icable for dialysis patien ts Inspecting Machine Adjuster ID Merline GRANT [id number] 05:34:03 Test Item Value Reference Range Interpretation Comments MAGNESIUM (BEAKER) (test code = 1.9 mg/dL 1.6-2.6 627) Inspecting Machine Adjuster ID Merline GRANT [id number] 05:34:03 Test Item Value Reference Range Interpretation Comments PHOSPHORUS (BEAKER) (test code = 5.9 mg/dL 2.3-4.7 H 604) Inspecting Machine Adjuster ID Merline GRANT WCBC W/PLT COUNT & AUTO [id number] 04:51:11 Test Item Value Reference Range Interpretation [...] (test code = 2801) HIGH SENSITIVITY TROPONIN [id number] 18:47:20 Test Item Value Reference Range Interpretation Comments HIGH SENSITIVITY 22 pg/ml See_Comment H [Automated message] TROPONIN I (test code = The system which [id number]) generated this result transmitted ref erence range: <=17. Th e reference range was not used to int erpret this result as normal/abnormal . Inspecting Machine Adjuster ID - LETICIA BThe FORM DRAFTER STAT High Sensitivity Troponin-I results should be used in conjunction with other diagnostic information such as ECG, clinical observations and information, and patient symptoms to aid in the diagnosis of SD.[id number] 18:35:03 Test Item Value Reference Range Interpretation Comments POTASSIUM (BEAKER) (test code = 3.1 meq/L 3.5-5.1 L 379) Inspecting Machine Adjuster ID - LETICIA JUSTIN, CHEST, 1 VIEW, NON [id number] 16:19:00Reason for exam:->pulm edemaShould this be performed at the bedside?->Yes [facility] : 1955 Sex: FFINAL REPORT [...] Signed: Samia Rodriguez Verified Date/Time: 09/23/2022 16:19:33 [id number] 16:00:35 Test Item Value Reference Range Interpretation Comments THYROID STIMULATING HORMONE 1.121 uIU/mL 0.350-4.940 (BEAKER) (test code = 772) Inspecting Machine Adjuster ID - LETICIA BHIGH SENSITIVITY TROPONIN [id number] 15:45:53 Test Item Value Reference Range Interpretation Comments HIGH SENSITIVITY 23 pg/ml See_Comment H [Automated message] TROPONIN I (test code = The system which 6854407) generated this result transmitted ref erence range: <=17. Th e reference range was not used to int erpret this result as normal/abnormal . Inspecting Machine Adjuster ID - LETICIA BThe FORM DRAFTER STAT High Sensitivity Troponin-I results should be used in conjunction with other diagnostic information such as ECG, clinical observations and information, and patient symptoms to aid in the diagnosis of SD.B-TYPE NATRIURETIC FACTOR (BNP)2022-09-23 15:45:53 Test Item Value Reference Range Interpretation Comments B-TYPE NATRIURETIC PEPTIDE (BEAKER) 395 pg/mL 0-100 H (test code = 700) Inspecting Machine Adjuster ID - LETICIA BCOMPREHENSIVE METABOLIC [id number] 15:42:17 Test Item Value Reference Range Interpretation [...] eGF R is based on the CKD-EPI 202 equation that d oes not use a race coefficientEsti mated GFR is not as accur ate as Creatinine Josseline viral in predicting glom erular filtration rate . Estimated GFR is not appl icable for dialysis patien ts Inspecting Machine Adjuster ID - LETICIA [id number] 15:39:33 Test Item Value Reference Range Interpretation Comments MAGNESIUM (BEAKER) (test code = 1.9 mg/dL 1.6-2.6 627) Inspecting Machine Adjuster ID - LETICIA [id number] 15:39:33 Test Item Value Reference Range Interpretation Comments PHOSPHORUS (BEAKER) (test code = 5.0 mg/dL 2.3-4.7 H 604) Inspecting Machine Adjuster ID - LETICIA BCBC W/PLT COUNT & AUTO [id number] 15:23:08 Test Item Value Reference Range Interpretation [...] (BEAKER) (test code = 2801) ECG 12 [id number] 22:49:39 Test Item Value Reference Range Interpretation [...] ECG of 28-APR-2022 02:20,-QRS axis shifted right- [address]2022-11-06 22:49:39 Test Item Value Reference Range [...] ECG of 28-APR-2022 02:20,-QRS axis shifted right- [address]2022-11-06 22:49:39 Test Item Value Reference Range [...] ECG of 28-APR-2022 02:20,-Q[facility] [Presence] in Respiratory specimen by DANIEL with probe [id number] 04:29:38 Test Item Value Reference Range Interpretation Comments SARS-CoV-2 (COVID-19) RNA Not detected [Presence] in Respiratory specimen by DANIEL with probe detection (test code = 09258-9) Whether patient is employed in a Unknown healthcare setting (test code = 67046-6) Whether the patient has symptoms Unknown related to condition of interest (test code = 80892-1) Whether the patient was Unknown hospitalized for condition of interest (test code = 71803-1) Whether the patient was admitted Unknown to intensive care unit (ICU) for condition of interest (test code = 26963-2) Whether patient resides in a Unknown congregate care setting (test code = 26823-7) status (test code = Unknown 87585-2) Date and time of symptom onset Unknown (test code = 24149-2) [facility] Preliminary Interpretation - Not an [id number] 03:37:43 Test Item Value Reference Range Interpretation Comments GUICHO (test code = GUICHO) Francisco Dean MD 09/09/2022 3:33 [facility] Preliminary Interpretation - Not an OrderPerformed by: Francisco Dean MDAuthorized by: Francisco Dean MD ECG reviewed by ED Physician in the absence of a biomedical instrument technician: yes Interpretation: Interpretation: abnormal Quality: Tracing quality: Limited by artifactRate: ECG rate: 94 ECG rate assessment: normal Rhythm: Rhythm: atrial fibrillation Ectopy: Ectopy: none QRS: QRS axis: Right QRS intervals: NormalConduction: Conduction: normal ST segments: ST segments: NormalT waves: T waves: non-specific Comments: QRS 82. QTc 420. Lab Interpretation Abnormal (test code = 87714-6) [facility] Preliminary Interpretation - Not an [id number] 03:37:43 Test Item Value Reference Range Interpretation Comments GUICHO (test code = GUICHO) Francisco Dean MD 09/09/2022 3:33 [facility] Preliminary Interpretation - Not an OrderPerformed by: Francisco Dean MDAuthorized by: Francisco Dean MD ECG reviewed by ED Physician in the absence of a biomedical instrument technician: yes Interpretation: Interpretation: abnormal Quality: Tracing quality: Limited by artifactRate: ECG rate: 94 ECG rate assessment: normal Rhythm: Rhythm: atrial fibrillation Ectopy: Ectopy: none QRS: QRS axis: Right QRS intervals: NormalConduction: Conduction: normal ST segments: ST segments: NormalT waves: T waves: non-specific Comments: QRS 82. QTc 420. Lab Interpretation Abnormal (test code = 00484-4) [facility]athy[facility] [id number] 17:49:00 Test Item Value Reference Interpretation Comments [...] RAC) Organization Information: Site ID: RGA Name: [facility] Lab Address: [address] [place] [address] Director: Yusef Boyce Lab Abnormal Interpretation (test code = 17911-4) [facility] HospitalThyroid stimulating [id number] 17:49:00 Test Item Value Reference Range Interpretation [...] code = RAC) Organization Information: Site ID: VINITA [facility] Address: [address] [place] [phone] Director: [facility] CenterVitamin D 25 hydroxy [id number] 17:49:00 Test Item Value Reference Range Interpretation [...] please refer to http://educatio n.Q uestDiagnostics .co m/faq/JTO333 (T his link is being provided for informational/e gini ational purpose s only.) GUICHO (test code = FASTING:NO FASTING: GUICHO) NO RAC (test code = Performing RAC) Organization Information: Site ID: VINITA [facility] Address: [address] [place] [address] Director: Glenford Leonard [facility] SystemParathyroid [id number] 17:49:00 Test Item Value Reference Interpretation Comments [...] = Performing RAC) Organization Information: Site ID: [facility] Name: [facility] Lab Address: [address] [place] [address] Director: Yusef Boyce Lab Abnormal Interpretation (test code = 49932-8) [facility] HospitalThyroid stimulating [id number] 17:49:00 Test Item Value Reference Range Interpretation [...] code = RAC) Organization Information: Site ID: [facility] Name: [facility] Address: [address] [place] [phone] Director: Yusef ButtCleveland Clinic [facility]ucl[facility] HospitalVitamin D 25 hydroxy [id number] 17:49:00 Test Item Value Reference Range Interpretation [...] please refer to http://educatio n.Q uestDiagnostics .co m/faq/FNP910 (T his link is being provided for informational/e gini ational purpose s only.) GUICHO (test code = FASTING:NO FASTING: GUICHO) NO RAC (test code = Performing RAC) Organization Information: Site ID: [facility] Name: [facility] Address: [address] [place] [address] Director: Yusef Boyce [facility] HospitalParathyroid [id number] 17:49:00 Test Item Value Reference Interpretation Comments [...] = Performing RAC) Organization Information: Site ID: [facility]: [facility] Address: [address] [place] [address] Director: Yusef Boyce Lab Abnormal Interpretation (test code = 78791-7) [facility] HospitalThyroid stimulating [id number] 17:49:00 Test Item Value Reference Range Interpretation [...] code = RAC) Organization Information: Site ID: [facility] Name: [facility] Address: [address] [place] [address] Director: Yusef Boyce [facility] HospitalVitamin D 25 hydroxy jyyzi8144-88-00 17:49:00 Test Item Value Reference Range Interpretation Comments Vitamin D, 82 ng/mL 30-100 Vitamin D Statu s 25-hydroxy (test 25-OH Vitam in D: code = 1989-3) Deficiency: <20 ng/mLInsufficie ncy : 20 - [...] please refer to http://educatio n.Q uestDiagnostics .co m/faq/DDC493 (T his link is being provided for informational/e gini ational purpose s only.) GUICHO (test code = FASTING:NO FASTING: GUICHO) NO RAC (test code = Performing RAC) Organization Information: Site ID: RGA Name: [facility] Address: [address] [place] [address] Director: Yusef Boyce [facility]2022-09-07 04:51:00 Test Item Value Reference Range Interpretation Comments POC glucose (test code = 129 mg/dL 65-99 H Ope rator Name: [id number]) [facility] IainRadha ce ID: [id number]~Laura table : HMW Notified vendor representatives Interpretation (test Abnormal code = 62563-0) [facility]2022-09-07 04:51:00 Test Item Value Reference Range Interpretation Comments POC glucose (test code = 129 mg/dL 65-99 H Ope rator Name: [id number]) [facility] IainRadha ce ID: [id number]~Laura table : HMW Notified vendor representatives Interpretation (test Abnormal code = 54591-8) [facility]2022-09-07 04:51:00 Test Item Value Reference Range Interpretation Comments POC glucose (test code = 129 mg/dL 65-99 H Ope rator Name: [id number]) [facility] IainRadha ce ID: [id number]~Laura table : HMW Notified vendor representatives Interpretation (test Abnormal code = 97920-4) [facility] HospitalTransthoracic Echocardiogram Complete, (w Contrast, Strain and 3D if needed)2022-06-26 14:28:07 Test Item Value Reference Interpretation Comments Range RA pressure (test mmHg code = 6447789538) EF (test code = 50 % 54-74 A 4625735772) IVS,d (test code = 0.92 cm 0.6-0.9 A 9125562310) IVS s 2D (test code 1.08 cm = 2004027299) LVPWD,d (test code = 0.93 cm 0.60-1.19 0962119556) LVPW s PLAX (test 1.13 cm code = 5711588893) LV,s (test code = 2.94 cm 3903680379) LVOT Diam,S (test 1.98 cm code = 7805697321) LV BURGESS VOL (test 66.04 ml 46-106 code = 3574181002) LV SYS VOL (test 33.32 ml 14-42 code = 2853025364) MV Peak E Jonathan (test 1.61 m/s code = 1430475724) MV Peak A Jonathan (test 0.58 m/s code = 6851887383) E/A ratio (test code See_Comment A [Autom ated = 3123416692) message] The system which generated this result transmitted reference range : <=0.8. The reference range was not used to interpret this result as normal/abnormal . E wave decelartion See_Comment A [Automat ed time (test code = message] T he 7729541816) system which generated this result transmitted reference range : 200 msec. The reference range was not used to interpret this result as normal/abnormal . LV,d (test code = 3.90 cm 7887191558) IVS/LVPW,2D (test code = 3632524115) LV EF,2D (test code 57.26 % = 6149462678) LV FS Cube 2D (test code = 1221324392) LV FS Teich 2D (test code = 0869932773) LV SV Teich 2D (test 32.73 ml code = 0717526547) LV Vol s Teich PSAX 33.32 ml (test code = 4383274847) LVOT stroke volume 0.46 cm3 (test code = 1168749503) Left Atrium 5.30 cm See_Comment A [Automated Dimension Anterior message] The (test code = system which 1616474068) generated this result transmitted reference range : <=3.8. The reference range was not used to interpret this result as normal/abnormal . LA Vol MOD A4C (test 130.09 ml code = 2591327969) LA area s A4C (test 36.52 cm2 code = 2127023756) LVOT area (test code 3.08 cm2 = 0100246456) LVOT Vmax (test code 0.85 m/s = 3233181181) AoV Mean PG (test See_Comment [Automate d code = 9024630488) message] The system which generated this result transmitted reference range : 20 mmHg. The reference range was not used to interpret this result as normal/abnormal . AoV Peak PG (test mmHg code = 9530424343) AV LVOT peak mmHg gradient (test code = 6223743289) AoV Area, Vmax (test 1.94 cm2 See_Comment [Autom ated code = 3225500206) message] The system which generated this result transmitted reference range : >=1.5. The reference range was not used to interpret this result as normal/abnormal . LVOT VTI (CM) (test 15.00 cm code = 1185054363) AoV Vmax (test code 1.35 m/s = 3572937805) AoV Vmn (test code = 0.82 m/s 3141067090) AoV Area, VTI (test 2.30 cm2 code = 4482543181) LVOT CO (test code = 4.72 l/min 4841736032) LVOT HR for LVOT CO bpm (test code = 9447655956) Velocity Ratio 0.63 m/s (V1/V2) (test code = 4689) MV mean gradient See_Comment [Automated (test code = message] The 2380550849) system which generated this result transmitted reference range : 5 mmHg. The reference range was not used to interpret this result as normal/abnormal . MR peak grad (test mmHg code = 4964316000) MV stenosis pressure 30.12 ms See_Comment [Autom ated 1/2 time (test code message] The = 7625452217) system which generated this result transmitted reference range : <=150. The reference range was not used to interpret this result as normal/abnormal . MV E A ratio (test code = 4945911179) MV valve area p 1/2 7.30 cm2 method (test code = 7095432425) MV VTI Tips (test 0.15 m code = 7364465239) MV Vmax (test code = 0.72 m 9950506247) RVSP (test code = See_Comment A [Automate d 6905627283) message] The system which generated this result transmitted reference range : 40.00 mmHg. The reference range was not used to interpret this result as normal/abnormal . TR pk grad (test mmHg code = 3675692191) TR Vpeak (test code 2.85 m/s = 2228624847) RVSP (TR) (test code mmHg = 1279429407) RVOT Vmax (test code 0.44 m/s = 5122984524) PV Mean Grad (test mmHg code = 3501084193) PV Pk Grad (test See_Comment [Automated code = 5899657598) message] The system which generated this result transmitted reference range : 36 mmHg. The reference range was not used to interpret this result as normal/abnormal . PV VTI (test code = 0.17 m 6985248618) RVOT pk grad (test mmHg code = 5156066813) PV VMAX (test code = 1.05 m/s See_Comment [Autom ated 3926244047) message] The system which generated this result transmitted reference range : <=3. The reference range was not used to interpret this result as normal/abnormal . PV Vmn (test code = 2862443666) Ao Root Diameter 2.95 cm See_Comment [Automated (test code = message] The 4501856450) system which generated this result transmitted reference range : <=3.99. The reference range was not used to interpret this result as normal/abnormal . Ao Root Diameter 2.95 cm (test code = 9888416911) Ascending aorta 2.58 cm (test code = 5496134925) Pred METS R1 (test code = 4394114668) Pred Exer Dur R1 (test code = 2150790240) MV Decel slope (test 15.54 m/s2 code = 7631812299) LVPW pct thck PLAX 20.67 % (test code = 5019291964) LV vol s cube 2D 25.42 ml (test code = 5426728012) LV vol d cube 2D 59.47 ml (test code = 8398334139) LV SV Cube 2D (test 34.05 ml code = 2568931686) IVS pct thck PLAX 17.04 % (test code = 0474383850) Calc MPHR (test code bpm = 2973248654) 85 of MPHR (test code = 4173691224) RVOT VTI (test code 0.08 m = 6519499254) RVOT Vmn (test code 0.30 m/s = 2907755488) RVOT mean grad (test mmHg code = 3458900775) MAX Pred HR (test code = 2355932400) LVOT mean grad (test mmHg code = 9425019804) Aov area Vmn (test 2.31 cm2 code = 8650854878) MV AE ratio (test code = 6920617391) LVOT Vmn (test code = 7088117612) MR Vmax (test code = 4.65 m/s 6958859823) AoV VTI (test code = 0.20 m 8132733241) LVOT VTI (test code 0.15 m = 4203185726) GUICHO (test code = GUICHO) Left Ventricle: [...] artifact. Lab Interpretation Abnormal (test code = 76475-0) [facility] LjhdblqxKTPM-HsJ-3 (COVID-19) RNA [Presence] in Respiratory specimen by DANIEL with probe efihsmlmx1441-17-76 19:34:22 Test Item Value Reference Range Interpretation Comments SARS-CoV-2 (COVID-19) RNA [Presence] Detected in Respiratory specimen by DANIEL with probe detection (test code = 42413-1) Whether patient is employed in a Unknown healthcare setting (test code = 15303-7) Whether the patient has symptoms Unknown related to condition of interest (test code = 64247-8) Whether the patient was hospitalized Unknown for condition of interest (test code = 42876-2) Whether the patient was admitted to Unknown intensive care unit (ICU) for condition of interest (test code = 97033-3) Whether patient resides in a Unknown congregate care setting (test code = 58761-5) status (test code = Unknown 02781-0) Date and time of symptom onset (test Unknown code = 06852-2) [facility] [id number] 16:39:00 Test Item Value Reference Range Interpretation [...] = 8.8 mg/dL 8.0-10.5 N CA) PROTHROMBIN [id number] 16:33:00 Test Item Value Reference Range Interpretation [...] (to prevent recurrent infar ct). CBC W/AUTO [id number] 16:23:00 Test Item Value Reference Range Interpretation [...] code NO = MDIFF) Hepatitis B surface socqlmji5358-63-57 21:36:32 Test Item Value Reference Range Interpretation Comments Hep B S Ab (test code <8.0 See_Comment [Auto mated = 17474-0) message] The system which generated this result transmit yahir reference range : <8.0 mIU/mL. Th e reference range was not used to interpret this result as normal/abnormal . GUICHO (test code = GUICHO) Inspecting Machine Adjuster ID - DB Lab Interpretation Normal (test code = 20511-5) [facility] mpjytlcy3337-00-50 21:36:32 Test Item Value Reference Range Interpretation Comments Hep B S Ab (test code <8.0 See_Comment [Auto mated = 05755-1) message] The system which generated this result transmit yahir reference range : <8.0 mIU/mL. Th e reference range was not used to interpret this result as normal/abnormal . GUICHO (test code = GUICHO) Inspecting Machine Adjuster ID - DB Lab Interpretation Normal (test code = 47801-3) [facility] hwxbsilp0025-30-52 21:36:32 Test Item Value Reference Range Interpretation Comments Hep B S Ab (test code <8.0 See_Comment [Auto mated = 48103-3) message] The system which generated this result transmit yahir reference range : <8.0 mIU/mL. Th e reference range was not used to interpret this result as normal/abnormal . GUICHO (test code = GUICHO) Inspecting Machine Adjuster ID - DB Lab Interpretation Normal (test code = 14044-1) [facility] B surface heqfxpdd4078-12-02 21:36:32 Test Item Value Reference Range Interpretation Comments Hep B S Ab (test code <8.0 See_Comment [Auto mated = 55267-2) message] The system which generated this result transmit yahir reference range : <8.0 mIU/mL. Th e reference range was not used to interpret this result as normal/abnormal . GUICHO (test code = GUICHO) Inspecting Machine Adjuster ID - DB Lab Interpretation Normal (test code = 61249-2) [facility] B surface edsomzpn4403-78-19 21:36:32 Test Item Value Reference Range Interpretation Comments Hep B S Ab (test code <8.0 See_Comment [Auto mated = 87542-2) message] The system which generated this result transmit yahir reference range : <8.0 mIU/mL. Th e reference range was not used to interpret this result as normal/abnormal . GUICHO (test code = GUICHO) Inspecting Machine Adjuster ID - DB Lab Interpretation Normal (test code = 63097-1) [facility] B surface wknlbvpf9599-79-47 21:36:32 Test Item Value Reference Range Interpretation Comments Hep B S Ab (test code <8.0 See_Comment [Auto mated = 95463-0) message] The system which generated this result transmit yahir reference range : <8.0 mIU/mL. Th e reference range was not used to interpret this result as normal/abnormal . GUICHO (test code = GUICHO) Inspecting Machine Adjuster ID - DB Lab Interpretation Normal (test code = 97812-8) [facility] B surface gfcyopdw3346-37-06 21:36:32 Test Item Value Reference Range Interpretation Comments Hep B S Ab (test code <8.0 See_Comment [Auto mated = 87236-1) message] The system which generated this result transmit yahir reference range : <8.0 mIU/mL. Th e reference range was not used to interpret this result as normal/abnormal . GUICHO (test code = GUICHO) Inspecting Machine Adjuster ID - DB Lab Interpretation Normal (test code = 61975-0) [facility] B surface xbvuffgu8487-80-04 21:36:32 Test Item Value Reference Range Interpretation Comments Hep B S Ab (test code <8.0 See_Comment [Auto mated = 63541-3) message] The system which generated this result transmit yahir reference range : <8.0 mIU/mL. Th e reference range was not used to interpret this result as normal/abnormal . GUICHO (test code = GUICHO) Inspecting Machine Adjuster ID - DB Lab Interpretation Normal (test code = 09643-2) [facility] [id number] 21:36:32 Test Item Value Reference Range Interpretation Comments HEPATITIS B SURFACE ANTIBODY < mIU/mL <8.0 (BEAKER) (test code = 647) Inspecting Machine Adjuster ID - DBHepatitis B surface mjbxyvh6843-85-06 21:24:22 Test Item Value Reference Range Interpretation Comments Hepatitis B surface Nonreactive Nonreactive antigen (test code = 5195-3) GUICHO (test code = GUICHO) Specimen is considered negative for HBsAg. Lab Interpretation (test Normal code = 32887-4) [facility] B surface fcgrxjc3056-24-91 21:24:22 Test Item Value Reference Range Interpretation Comments Hepatitis B surface Nonreactive Nonreactive antigen (test code = 5195-3) GUICHO (test code = GUICHO) Specimen is considered negative for HBsAg. Lab Interpretation (test Normal code = 16517-9) [facility] B SURFACE [id number] 21:24:22 Test Item Value Reference Range Interpretation Comments HEPATITIS B SURFACE ANTIGEN (2) Nonreactive Nonreactive (BEAKER) (test code = 2585) Specimen is considered negative for HBsAg.Transthoracic Echocardiogram Complete, (w Contrast, Strain and 3D if needed)2022-04-13 13:23:07 Test Item Value Reference Interpretation Comments Range EF (test code = 66 % 54-74 8116956462) IVS,d (test code = 1.03 cm 0.6-0.9 A 2687644542) LVPWD,d (test code = 1.27 cm 0.60-1.19 A 4605519645) LV,s (test code = 2.56 cm 0384559675) LVOT Diam,S (test 2.01 cm code = 0656212904) LV BURGESS VOL (test 69.20 ml 46-106 code = 7590760523) LV SYS VOL (test 23.74 ml 14-42 code = 8677096004) MV Peak E Jonathan (test 1.20 m/s code = 4554883622) MV Peak A Jonathan (test 0.47 m/s code = 6623947834) E/A ratio (test code See_Comment A [Autom ated = 3298782105) message] The system which generated this result transmitted reference range : <=0.8. The reference range was not used to interpret this result as normal/abnormal . E wave decelartion See_Comment A [Automat ed time (test code = message] T he 4153369808) system which generated this result transmitted reference range : 200 msec. The reference range was not used to interpret this result as normal/abnormal . LV,d (test code = 3.98 cm 0646235334) IVS/LVPW,2D (test code = 9369387611) LV EF,2D (test code 73.32 % = 0703250563) LV FS Cube 2D (test code = 3101571878) LV FS Teich 2D (test code = 1576740995) LV SV Teich 2D (test 45.46 ml code = 7957680506) LV Vol s Teich PSAX 23.74 ml (test code = 6491415015) LVOT stroke volume 0.35 cm3 (test code = 2118716189) Left Atrium 4.52 cm See_Comment A [Automated Dimension Anterior message] The (test code = system which 9570180582) generated this result transmitted reference range : <=3.8. The reference range was not used to interpret this result as normal/abnormal . LA Vol MOD A4C (test 83.62 ml code = 6196825611) LA area s A4C (test 28.59 cm2 code = 3759434536) LA Ao Ratio Mmode (test code = 6902975386) LVOT area (test code 3.17 cm2 = 3916371805) LVOT Vmax (test code 0.62 m/s = 9831437461) AoV Mean PG (test See_Comment [Automate d code = 7658989741) message] The system which generated this result transmitted reference range : 20 mmHg. The reference range was not used to interpret this result as normal/abnormal . AoV Peak PG (test mmHg code = 1402972732) AV LVOT peak mmHg gradient (test code = 7932272860) AoV Area, Vmax (test 2.00 cm2 See_Comment [Autom ated code = 1763528975) message] The system which generated this result transmitted reference range : >=1.5. The reference range was not used to interpret this result as normal/abnormal . LVOT VTI (CM) (test 11.00 cm code = 6598195913) AoV Vmax (test code 0.98 m/s = 9904187178) AoV Vmn (test code = 0.65 m/s 3112070240) AoV Area, VTI (test 2.42 cm2 code = 1651267171) Velocity Ratio 0.63 m/s (V1/V2) (test code = 4689) MR peak grad (test mmHg code = 5200663045) MV stenosis pressure 31.00 ms See_Comment [Autom ated 1/2 time (test code message] The = 1062880070) system which generated this result transmitted reference range : <=150. The reference range was not used to interpret this result as normal/abnormal . MV E A ratio (test code = 8232529700) MV valve area p 1/2 7.10 cm2 method (test code = 9789364460) E prime lat (test code = 8369162089) E katherine sept (test code = 6994250150) RVSP (test code = See_Comment A [Automate d 1025438566) message] The system which generated this result transmitted reference range : 40.00 mmHg. The reference range was not used to interpret this result as normal/abnormal . RA pressure (test mmHg code = 9713469064) TR pk grad (test mmHg code = 4265127729) TR Vpeak (test code 3.51 m/s = 8964170968) RVSP (TR) (test code mmHg = 0600886925) RVOT Vmax (test code 0.46 m/s = 0996247318) PV Pk Grad (test See_Comment [Automated code = 9970163167) message] The system which generated this result transmitted reference range : 36 mmHg. The reference range was not used to interpret this result as normal/abnormal . RVOT pk grad (test mmHg code = 5012615099) PV VMAX (test code = 1.15 m/s See_Comment [Autom ated 1397455381) message] The system which generated this result transmitted reference range : <=3. The reference range was not used to interpret this result as normal/abnormal . Ao root annulus 2.82 cm (test code = 6174425875) Ao Root Diameter 3.23 cm See_Comment [Automated (test code = message] The 4630529193) system which generated this result transmitted reference range : <=3.99. The reference range was not used to interpret this result as normal/abnormal . Ao Root Diameter 3.23 cm (test code = 0758288295) Ascending aorta 3.69 cm (test code = 8602427991) Pred METS R1 (test code = 8087076658) Pred Exer Dur R1 (test code = 7856155532) MV Decel slope (test 11.26 m/s2 code = 1476837504) LV vol s cube 2D 16.83 ml (test code = 3532201333) LV vol d cube 2D 63.08 ml (test code = 5821663284) LV SV Cube 2D (test 46.25 ml code = 4729438236) Calc MPHR (test code bpm = 2420076851) 85 of MPHR (test code = 8776864901) MAX Pred HR (test code = 0829821062) LVOT mean grad (test mmHg code = 1481883083) Aov area Vmn (test 1.92 cm2 code = 8753197595) MV AE ratio (test code = 9379695836) LVOT Vmn (test code = 0678385778) MR Vmax (test code = 4.22 m/s 7004577952) AoV VTI (test code = 0.15 m 4981469708) LVOT VTI (test code 0.11 m = 1638125280) GUICHO (test code = GUICHO) Left Ventricle: [...] tachycardia. Lab Interpretation Abnormal (test code = 16022-7) [facility]2022-06-19 07:26:00 Test Item Value Reference Interpretation Comments Range Urine culture Proteus deicosb25-4 A Specime n isolate (test cfu/mlThe [facility] Hospital[facility] hospital[facility] code = 96745-2) performance Source: Urin eSpecimen characteristics of Site: Christopher an catch this assay on this isolatewere validated by the Microbiology Laboratory at [facility]. This source has not been approved by the U.S. Food and Drug Administration. The results are not intended to be used as the sole means for clinical diagnosis or patient management. The Microbiology Laboratory is authorized under the clinical Laboratory Improvement Amendments of 1988 (CLIA-88) to perform high complexity testing. Lab Abnormal Interpretation (test code = 86713-4) [facility]2022-06-19 07:26:00 Test Item Value Reference Interpretation Comments Range Urine culture Proteus -6 A Specime n isolate (test cfu/mlThe InformationSpe cimen code = 54099-5) performance Source: Urin eSpecimen characteristics of Site: Christopher an catch this assay on this isolatewere validated by the Microbiology Laboratory at [facility]. This source has not been approved by the U.S. Food and Drug Administration. The results are not intended to be used as the sole means for clinical diagnosis or patient management. The Microbiology Laboratory is authorized under the clinical Laboratory Improvement Amendments of 1988 (CLIA-88) to perform high complexity testing. Lab Abnormal Interpretation (test code = 55127-0) [facility]2022-06-19 07:26:00 Test Item Value Reference Interpretation Comments Range Urine culture Proteus vfljrad16-9 A Specime n isolate (test cfu/mlThe InformationSpe [facility] code = 84326-7) performance Source: Urin eSpecimen characteristics of Site: Christopher an catch this assay on this isolatewere validated by the Microbiology Laboratory at [facility]. This source has not been approved by the U.S. Food and Drug Administration. The results are not intended to be used as the sole means for clinical diagnosis or patient management. The Microbiology Laboratory is authorized under the clinical Laboratory Improvement Amendments of 1988 (CLIA-88) to perform high complexity testing. Lab Abnormal Interpretation (test code = 46796-4) [facility] RNA [Presence] in Respiratory specimen by DANIEL with probe rnbpeomdc5676-26-27 00:41:02 Test Item Value Reference Range Interpretation Comments SARS-CoV-2 (COVID-19) RNA Not detected [Presence] in Respiratory specimen by DANIEL with probe detection (test code = 97538-2) Whether patient is employed in a Unknown healthcare setting (test code = 72692-3) Whether the patient has symptoms Unknown related to condition of interest (test code = 20983-3) Whether the patient was Unknown hospitalized for condition of interest (test code = 94363-5) Whether the patient was admitted Unknown to intensive care unit (ICU) for condition of interest (test code = 58163-0) Whether patient resides in a Unknown congregate care setting (test code = 66634-7) status (test code = Unknown 57271-0) Date and time of symptom onset Unknown (test code = 58675-9) [facility]- XR MPNH5420-57-41 10:28:00 [facility] : 1955 Sex: F Name: FREDDIE SAUCEDO [place] : 1955 Age/S: 66 / F [address] Unit #: [id number] Loc: [place] [address] Phys: Mic Aiken MD Acct: [id number] Dis Date: Status: REG [facility] PHONE #: [phone] Exam Date: 03/08/2022 0950 FAX #: Reason: ERCP EXAMS: CPT: [id number] XR ERCP 97655 Fluoro Time: 33 SEC DAP (Gy m2): [...] MD PAGE 1 Signed Report Name:FREDDIE SAUCEDO [place] : 1955 Age/S: 66 / F [address] Unit #: [id number] Loc: [place] [address] Phys: Mic Aiken MD Acct: [id number] Dis Date: Status: REG [facility] PHONE #: [phone] Exam Date: 03/08/2022 0950 FAX #: Reason: ERCP EXAMS: CPT: [id number] XR ERCP 41284 Fluoro Time: 33 SEC DAP (Gy m2): Air Kerma (mGy): (Continued) Technologist: Naila Davis RT(R) Trnscb Date/Time: 03/08/2022 (0412) tТАТЬЯНАR.ANS4 Orig Print D/T: S: 03/08/2022 (8473) PAGE 2 Signed TjxdduRHLFHFBFY6607-17-21 08:51:00 Test Item Value Reference Range Interpretation Comments POTASSIUM (test code = K) 5.1 mmol/L 3.4-5.0 H CBC W/AUTO [id number] 08:15:00 Test Item Value Reference Range Interpretation [...] NO DIFF/SCN CRITERIA = MDIFF) BASIC METABOLIC [id number] 08:08:00 Test Item Value Reference Range Interpretation [...] 9.9 MG/DL 8.5-10.1 N COVID 19 INHOUSE [id number] 14:11:00 Test Item Value Reference Range Interpretation Comments COVID 19 INHOUSE AG NEGATIVE Negative Per manu facturer, (test code = negative result s should [id number]) be treated aspr esumptive and, if inconsi [...] symptoms co nsistent with COVID-19. CBC W/AUTO EJGR2811-92-06 14:00:00 Test Item Value Reference Range Interpretation [...] NT WITH AUTO DIFFERENTI AL. HEPATIC FUNCTION UPNND9315-05-09 13:32:00 Test Item Value Reference Range Interpretation [...] 222 Unit/L 45-117 H code = ALKP) SWZVIY1466-02-28 13:32:00 Test Item Value Reference Range Interpretation Comments LIPASE (test code = LIP) 109 Unit/L 114-286 L BASIC METABOLIC [id number] 13:32:00 Test Item Value Reference Range Interpretation [...] code = CA) 10.1 MG/DL 8.5-10.1 N GSOISVMR6263-71-51 18:01:00 Test Item Value Reference Range Interpretation Comments SURGICAL (test code = SR) RUN DATE: 03/01/22 [facility] PAGE 1 RUN TIME: 1801 Specimen Inquiry RUN USER: INTERFACE LIANNA ENT: FREDDIE SAUCEDO LOC: CHIO #: [id number] AGE/SX: 66/F ROOM: RE02/27/22[facility] DR: Adam King MD : 57 BED: DIS: STATUS: MYLA [facility] TLOC: SPEC #: [id number]:[facility]:[id number] RECD: 02/27/22-1152 STATUS: YULIA RERoxy #: [id number] LUZ: 02/27/22-[facility] DR: Adam King MD ENTERED: 02/27/22 SP TYPE: SURGICAL OTHR DR: Antonella Rodriguez MD ORDERED: 29339/2, 42252, 91159, 12645, ANATOMIC SPEC, SPECIMEN TRACK COPIES TO: Antonella Rodriguez MD [address] [place] [address] Adam King MD [address] [place] [address] PROCEDURES: 27328 (02/27/22) 94697 (03/01/22) 49893 (03/01/22) 58815 (03/01/22) SPECIMEN TRACK (02/27/22) TISSUES: A. GASTRIC [...] internal) control is negative (staining performed at [facility]). CONTINUED ON NEXT PAGE RUN DATE: 03/01/22 [facility] PAGE 2 RUN TIME: 1801 Specimen Inquiry RUN USER: INTERFACE SPEC #: [id number]:[facility]:[id number] PATIENT: FREDDIE SAUCEDO #[id number] (Continued) ------- GROSS DESCRIPTION A. Antrum and body biopsy. It consists of 4 tissue fragments measuring 2-5 mm. All as A1. B. Distal esophageal biopsy. It consists of 2 tissue fragments measuring 3 mm each. Allas B1. Technical component performed at [facility],[place] [address] , [place] [address] Unless gross only, the diagnosis is based [...] 03/01/22 1801 END OF REPORT BASIC METABOLIC [id number] 08:13:00 Test Item Value Reference Range Interpretation [...] MG/DL 8.5-10.1 N - XR CHEST 2 [id number] 13:28:00 [facility] : 1955 Sex: F Name: FREDDIE SAUCEDO [facility] : 1955 Age/S: 66 / F [address] Unit #: [id number] Loc: [place] [address] Phys: Adam King MD Acct: [id number] Dis Date: Status: PRE [facility] PHONE#: [phone] Exam Date: 02/24/2022 1253 FAX #: Reason: PRE OP EXAMS: CPT: [id number] XR CHEST 2 V 03932 Fluoro Time: DAP (Gy m2): Air Kerma [...] PAGE 1 Signed Report Name: FREDDIE SAUCEDO [facility] : 1955 Age/S: 66 / F [address] Unit #: [id number] Loc: [place] [address] Phys: Adam King MD Acct: [id number] Dis Date: Status: PRE SDC PHONE #: [phone] Exam Date: 02/24/2022 1253 FAX #: Reason: PRE OP EXAMS: CPT: [id number] XR CHEST 2 V 66590 FluoroTime: DAP (Gy m2): Air Kerma (mGy): (Continued) Technologist: RT Tanner (R)(CT) Trnscb Date/Time: 02/24/2022 (1328) t.DIANNR.TS14 Orig Print D/T: S: 02/24/2022 (2480) PAGE 2 Signed ReportBASIC METABOLIC [id number] 12:55:00 Test Item Value Reference Range Interpretation [...] 10.5 MG/DL 8.5-10.1 H COVID 19 INHOUSE [id number] 12:52:00 Test Item Value Reference Range Interpretation Comments COVID 19 INHOUSE AG NEGATIVE Negative Per manu facturer, (test code = negative result s should [id number]) be treated aspr esumptive and, if inconsi [...] and symptoms co nsistent with COVID-19. PROTHROMBIN [id number] 12:44:00 Test Item Value Reference Range Interpretation [...] Mec hanical prosthetic valv es (high risk), 2 .5 - 3.5 Presence of Lupus Anticoagulant o r Antiphospholipi d Antibodies, Pre vention of systemic emb olism - Acute Myocardia l Infarction (to prevent recurrent infar ct). THROMBOPLASTIN TIME [id number] 12:44:00 Test Item Value Reference Range Interpretation Comments THROMBOPLASTIN TIME PARTIAL 36.2 SECONDS 26-35 H (test code = PTT) CBC W/AUTO [id number] 12:43:00 Test Item Value Reference Range Interpretation [...] in Respiratory specimen by DANIEL with probe beyaysjgb6122-54-85 23:10:10 Test Item Value Reference Range Interpretation Comments SARS coronavirus RNA [Presence] Not detected in Isolate by DANIEL with probe detection (test code = 16199-8) Whether patient is employed in a No healthcare setting (test code = 82042-7) Whether the patient has symptoms Yes related to condition of interest (test code = 00454-9) Whether the patient was No hospitalized for condition of interest (test code = 95820-3) Whether the patient was admitted No to intensive care unit (ICU) for condition of interest (test code = 86824-0) Whether patient resides in a No congregate care setting (test code = 12394-1) status (test code = No 77978-2) Date and time of symptom onset Unknown (test code = 74584-3) [facility] RNA [Presence] in Respiratory specimen by DANIEL with probe ukuitwjpg7305-39-57 23:10:10 Test Item Value Reference Range Interpretation Comments SARS-CoV-2 (COVID-19) RNA Not detected [Presence] in Respiratory specimen by DANIEL with probe detection (test code = 96624-1) Whether patient is employed in a No healthcare setting (test code = 84826-9) Whether the patient has symptoms Yes related to condition of interest (test code = 58293-1) Whether the patient was No hospitalized for condition of interest (test code = 81752-8) Whether the patient was admitted No to intensive care unit (ICU) for condition of interest (test code = 54005-3) Whether patient resides in a No congregate care setting (test code = 14941-2) status (test code = No 74971-6) Date and time of symptom onset Unknown (test code = 60370-9) [facility]-CoV-2 (COVID-19) RNA [Presence] in Respiratory specimen by DANIEL with probe vqmxfawxo3860-30-01 22:34:30 Test Item Value Reference Range Interpretation Comments SARS-CoV-2 (COVID-19) RNA Not detected Not-Detected [Presence] in Respiratory specimen by DANIEL with probe detection (test code = 78886-1) Whether patient is employed in a healthcare setting (test code = 39946-3) Whether the patient has symptoms related to condition of interest (test code = 62749-8) Patient was hospitalized because of this condition (test code = 51947-2) Whether the patient was admitted to intensive care unit (ICU) for condition of interest (test code = 48838-0) Whether patient resides in a congregate care setting (test code = 30454-5) [facility]-CoV-2 (COVID-19) RNA [Presence] in Respiratory specimen by DANIEL with probe jnvjwfsch4540-00-47 22:35:42 Test Item Value Reference Range Interpretation Comments SARS-CoV-2 (COVID-19) RNA Not detected Not-Detected [Presence] in Respiratory specimen by DANIEL with probe detection (test code = 30186-9) Whether patient is employed in a healthcare setting (test code = 26734-3) Whether the patient has symptoms related to condition of interest (test code = 17824-0) Patient was hospitalized because of this condition (test code = 74158-2) Whether the patient was admitted to intensive care unit (ICU) for condition of interest (test code = 54947-1) Whether patient resides in a congregate care setting (test code = 10539-0) [facility]-CoV-2 (COVID-19) RNA [Presence] in Respiratory specimen by DANIEL with probe qyynxfcil2219-65-82 22:46:10 Test Item Value Reference Range Interpretation Comments SARS-CoV-2 (COVID-19) RNA Not detected Not-Detected [Presence] in Respiratory specimen by DANIEL with probe detection (test code = 31335-8) Whether patient is employed in a healthcare setting (test code = 16187-8) Whether the patient has symptoms related to condition of interest (test code = 67571-5) Patient was hospitalized because of this condition (test code = 46472-6) Whether the patient was admitted to intensive care unit (ICU) for condition of interest (test code = 07262-8) Whether patient resides in a congregate care setting (test code = 16373-5) [facility] ([facility]) RNA [Presence] in Respiratory specimen by DANIEL with probe stcdxhoks8279-83-69 01:54:24 Test Item Value Reference Range Interpretation Comments SARS-CoV-2 (COVID-19) RNA Not detected Not-Detected [Presence] in Respiratory specimen by DANIEL with probe detection (test code = 18737-4) Whether patient is employed in a healthcare setting (test code = 58114-1) Whether the patient has symptoms related to condition of interest (test code = 17799-1) Patient was hospitalized because of this condition (test code = 54319-9) Whether the patient was admitted to intensive care unit (ICU) for condition of interest (test code = 19647-9) Whether patient resides in a congregate care setting (test code = 58884-3) [facility]-CoV-2 (COVID-19) RNA [Presence] in Respiratory specimen by DANIEL with probe kauvwtqbb5870-58-14 21:44:06 Test Item Value Reference Range Interpretation Comments SARS-CoV-2 (COVID-19) RNA Not detected Not-Detected [Presence] in Respiratory specimen by DANIEL with probe detection (test code = 39569-5) Whether patient is employed in a healthcare setting (test code = 61420-0) Whether the patient has symptoms related to condition of interest (test code = 82815-7) Patient was hospitalized because of this condition (test code = 53268-6) Whether the patient was admitted to intensive care unit (ICU) for condition of interest (test code = 13530-9) Whether patient resides in a congregate care setting (test code = 99266-4) [facility]-CoV-2 (COVID-19) RNA [Presence] in Respiratory specimen by DANIEL with probe ybuiaqgst9068-40-56 00:36:59 Test Item Value Reference Range Interpretation Comments SARS-CoV-2 (COVID-19) RNA Not detected Not-Detected [Presence] in Respiratory specimen by DANIEL with probe detection (test code = 72993-5) [facility]-CoV-2 (COVID-19) RNA [Presence] in Respiratory specimen by DANIEL with probe fqagxyotd3224-47-52 17:35:35 Test Item Value Reference Range Interpretation Comments SARS-CoV-2 (COVID-19) RNA Not detected Not-Detected [Presence] in Respiratory specimen by DANIEL with probe detection (test code = 22357-4) [facility]-CoV-2 (COVID-19) RNA [Presence] in Respiratory specimen by DANIEL with probe hxzsfmafi1333-62-47 18:03:30 Test Item Value Reference Range Interpretation Comments SARS-CoV-2 (COVID-19) RNA Not detected Not-Detected [Presence] in Respiratory specimen by DANIEL with probe detection (test code = 77141-6) [facility]-CoV-2 (COVID-19) RNA [Presence] in Respiratory specimen by DANIEL with probe nviwwygla3429-25-22 10:06:03 Test Item Value Reference Range Interpretation Comments SARS-CoV-2 (COVID-19) RNA Not detected Not-Detected [Presence] in Respiratory specimen by DANIEL with probe detection (test code = 31628-4) [facility]-CoV-2 (COVID-19) RNA [Presence] in Respiratory specimen by DANIEL with probe cfdhsaayn7144-33-92 05:11:58 Test Item Value Reference Range Interpretation Comments SARS-CoV-2 (COVID-19) RNA Not detected Not-Detected [Presence] in Respiratory specimen by DANIEL with probe detection (test code = 67704-0) [facility]-CoV-2 (COVID-19) RNA [Presence] in Respiratory specimen by DANIEL with probe yltwnkpcn3461-78-80 03:34:16 Test Item Value Reference Range Interpretation Comments SARS-CoV-2 (COVID-19) RNA Not detected Not-Detected [Presence] in Respiratory specimen by DANIEL with probe detection (test code = 88807-4) [facility] IAMJRXGPXHQV-GbZ-4 (COVID-19) RNA [Presence] in Respiratory specimen by DANIEL with probe socyzvmsf2794-64-67 10:06:41 Test Item Value Reference Range Interpretation Comments SARS-CoV-2 (COVID-19) RNA Not detected Not-Detected [Presence] in Respiratory specimen by DANIEL with probe detection (test code = 84627-6) [facility] 12:33:00 Test Item Value Reference Range Interpretation Comments Chol (test code = Chol) 129 [facility]MiwkjqeFJMOER6129-87-61 12:33:00 Test Item Value Reference Range Interpretation Comments HDL (test code = HDL) 37 [facility]RjeccblMVOFXY0657-64-97 12:33:00 Test Item Value Reference Range Interpretation Comments Trig (test code = Trig) 76 [facility]roeEugckaaJPRKSY5837-15-76 12:33:00 Test Item Value Reference Range Interpretation Comments LDL (Calculated) (test code = LDL 76 (Calculated)) [facility]roePqbtdzbBHSCOG0750-76-82 12:33:00 Test Item Value Reference Range Interpretation Comments CHD Risk (test code = CHD Risk) 3.5 [facility] WorthIbcpaljXKWVUS1588-80-51 12:33:00 Test Item Value Reference Range Interpretation Comments Non HDL Chol (test code = Non HDL Chol) 92 [facility]roeHmotbmyJVJUOL6389-45-26 12:33:00 Test Item Value Reference Range Interpretation Comments Chol (test code = Chol) 129 [facility]roeOlfmthyKLEEAU5373-92-05 12:33:00 Test Item Value Reference Range Interpretation Comments HDL (test code = HDL) 37 [facility]roeVmtqwtvNYYYPY6618-06-89 12:33:00 Test Item Value Reference Range Interpretation Comments Trig (test code = Trig) 76 [facility]roeHsnrrcdEISPML3972-59-55 12:33:00 Test Item Value Reference Range Interpretation Comments LDL (Calculated) (test code = LDL 76 (Calculated)) [facility]roeUvicfkdOPUJOK1504-34-73 12:33:00 Test Item Value Reference Range Interpretation Comments CHD Risk (test code = CHD Risk) 3.5 [facility] WorthObuguqzBETMAQ9435-67-66 12:33:00 Test Item Value Reference Range Interpretation Comments Non HDL Chol (test code = Non HDL Chol) 92 [facility]roeOebhrilSACXJU3921-75-63 12:33:00 Test Item Value Reference Range Interpretation Comments Chol (test code = Chol) 129 [facility]roeCgeddxsFBMJGW3287-97-28 12:33:00 Test Item Value Reference Range Interpretation Comments HDL (test code = HDL) 37 [facility]roeWvuwkfdOUGMKS3364-63-42 12:33:00 Test Item Value Reference Range Interpretation Comments Trig (test code = Trig) 76 [facility]roeNetmeswYZBEYD2609-12-44 12:33:00 Test Item Value Reference Range Interpretation Comments LDL (Calculated) (test code = LDL 76 (Calculated)) [facility]roeToujuuqLJJEAM5070-85-66 12:33:00 Test Item Value Reference Range Interpretation Comments CHD Risk (test code = CHD Risk) 3.5 [facility]roeHbnpamkFEUMHN0185-03-70 12:33:00 Test Item Value Reference Range Interpretation Comments Non HDL Chol (test code = Non HDL Chol) 92 [facility]roeInlmdgwPEKHFJ5296-96-08 12:33:00 Test Item Value Reference Range Interpretation Comments Chol (test code = Chol) 129 [facility]roeXwzjttfAFFZLJ8995-62-48 12:33:00 Test Item Value Reference Range Interpretation Comments HDL (test code = HDL) 37 [facility]roeXcotwrsYBBIFA4041-90-47 12:33:00 Test Item Value Reference Range Interpretation Comments Trig (test code = Trig) 76 [facility] ConroeTrzpqsmJCTGKC4187-42-48 12:33:00 Test Item Value Reference Range Interpretation Comments LDL (Calculated) (test code = LDL 76 (Calculated)) [facility]roeUvgdcvsZOBPLS3696-43-53 12:33:00 Test Item Value Reference Range Interpretation Comments CHD Risk (test code = CHD Risk) 3.5 [facility] ConroeSaeoduaFWCUFI4568-80-61 12:33:00 Test Item Value Reference Range Interpretation Comments Non HDL Chol (test code = Non HDL Chol) 92 [facility]HsifnadODRJSP2134-75-27 12:33:00 Test Item Value Reference Range Interpretation Comments Chol (test code = Chol) 129 [facility]roeNiiyjvwLISJNS9860-70-48 12:33:00 Test Item Value Reference Range Interpretation Comments HDL (test code = HDL) 37 [facility]roeVovchmdRVJZQQ2729-05-21 12:33:00 Test Item Value Reference Range Interpretation Comments Trig (test code = Trig) 76 [facility]roeXjlozcbTEARMP5872-21-45 12:33:00 Test Item Value Reference Range Interpretation Comments LDL (Calculated) (test code = LDL 76 (Calculated)) [facility]XeqxchdIQTBHG9544-54-90 12:33:00 Test Item Value Reference Range Interpretation Comments CHD Risk (test code = CHD Risk) 3.5 [facility] WorthPlwjddpKEFPDY7235-16-76 12:33:00 Test Item Value Reference Range Interpretation Comments Non HDL Chol (test code = Non HDL Chol) 92 [facility]roeWfntmkdAQSKWD3099-19-42 12:33:00 Test Item Value Reference Range Interpretation Comments Chol (test code = Chol) 129 [facility] WorthGwemahxKGKAQE5585-79-64 12:33:00 Test Item Value Reference Range Interpretation Comments HDL (test code = HDL) 37 [facility] WorthZmgoypuQCYDLC9606-28-54 12:33:00 Test Item Value Reference Range Interpretation Comments Trig (test code = Trig) 76 [facility]roeLwfwixkSIWWWO4184-05-41 12:33:00 Test Item Value Reference Range Interpretation Comments LDL (Calculated) (test code = LDL 76 (Calculated)) [facility]roeZqnfptlKXIZEK1864-41-22 12:33:00 Test Item Value Reference Range Interpretation Comments CHD Risk (test code = CHD Risk) 3.5 [facility] WorthIxghxdmWZKALX2473-94-96 12:33:00 Test Item Value Reference Range Interpretation Comments Non HDL Chol (test code = Non HDL Chol) 92 [facility]roeJctvtmjECLCWB7696-19-59 12:33:00 Test Item Value Reference Range Interpretation Comments Chol (test code = Chol) 129 [facility] WorthLmknpxlIQHHJF8375-79-86 12:33:00 Test Item Value Reference Range Interpretation Comments HDL (test code = HDL) 37 [facility] WorthXmmotmvKAMGKG0929-81-73 12:33:00 Test Item Value Reference Range Interpretation Comments Trig (test code = Trig) 76 [facility] WorthPfoynnqUTHKEY9342-87-07 12:33:00 Test Item Value Reference Range Interpretation Comments LDL (Calculated) (test code = LDL 76 (Calculated)) [facility]roeMgkmbvoPHCDDH5735-37-05 12:33:00 Test Item Value Reference Range Interpretation Comments CHD Risk (test code = CHD Risk) 3.5 [facility] WorthKbuqlcgEAADEC0064-21-93 12:33:00 Test Item Value Reference Range Interpretation Comments Non HDL Chol (test code = Non HDL Chol) 92 [facility]roeXgangskJOHVRF8850-40-84 12:33:00 Test Item Value Reference Range Interpretation Comments Chol (test code = Chol) 129 [facility]roePyispxjQMYDXX8127-56-04 12:33:00 Test Item Value Reference Range Interpretation Comments HDL (test code = HDL) 37 [facility]roeLqrnlnfZVGXSC6508-03-69 12:33:00 Test Item Value Reference Range Interpretation Comments Trig (test code = Trig) 76 [facility]roeYgsxtdtIJIIQP6371-46-87 12:33:00 Test Item Value Reference Range Interpretation Comments LDL (Calculated) (test code = LDL 76 (Calculated)) [facility]roeSueacmwJKTQWK9395-69-82 12:33:00 Test Item Value Reference Range Interpretation Comments CHD Risk (test code = CHD Risk) 3.5 [facility]roeNxcgobxAAXEZF4789-76-30 12:33:00 Test Item Value Reference Range Interpretation Comments Non HDL Chol (test code = Non HDL Chol) 92 [facility]roeXeteeaoAJPQNO3672-21-14 12:33:00 Test Item Value Reference Range Interpretation Comments Chol (test code = Chol) 129 [facility]roeVxbsprqLNCYCT6958-47-38 12:33:00 Test Item Value Reference Range Interpretation Comments HDL (test code = HDL) 37 [facility]roeUvuduwcIBLNVV4890-71-66 12:33:00 Test Item Value Reference Range Interpretation Comments Trig (test code = Trig) 76 [facility]roeHohhdxxLFBKFS6012-08-67 12:33:00 Test Item Value Reference Range Interpretation Comments LDL (Calculated) (test code = LDL 76 (Calculated)) [facility]roeShlhxfePHQVQE1986-30-30 12:33:00 Test Item Value Reference Range Interpretation Comments CHD Risk (test code = CHD Risk) 3.5 [facility]roeKeceqlhWCSFRT6738-06-72 12:33:00 Test Item Value Reference Range Interpretation Comments Non HDL Chol (test code = Non HDL Chol) 92 [facility]roeNmljsmeEFCIGT3457-53-23 12:33:00 Test Item Value Reference Range Interpretation Comments Chol (test code = Chol) 129 [facility]roeSjbexbrRJNBME1963-07-62 12:33:00 Test Item Value Reference Range Interpretation Comments HDL (test code = HDL) 37 [facility]roeNlytkgvAAEBUS9373-05-87 12:33:00 Test Item Value Reference Range Interpretation Comments Trig (test code = Trig) 76 [facility]roeLvlqjmyCBBOJL0691-61-53 12:33:00 Test Item Value Reference Range Interpretation Comments LDL (Calculated) (test code = LDL 76 (Calculated)) [facility] WorthOchdyuoPXVKJL6739-43-00 12:33:00 Test Item Value Reference Range Interpretation Comments CHD Risk (test code = CHD Risk) 3.5 [facility] WorthAihclfyTDRCBF1794-67-22 12:33:00 Test Item Value Reference Range Interpretation Comments Non HDL Chol (test code = Non HDL Chol) 92 [facility]2020-08-06 14:47:00 Test Item Value Reference Range Interpretation Comments Vitamin D, 25-OH, Total (test code = 37 30-100 Vitamin D, 25-OH, Total) [place] 648970-08-06 14:47:00 Test Item Value Reference Range Interpretation Comments U Creat mg/dL (test code = U Creat 114 20-275 mg/dL) [place] 648970-08-06 14:47:00 Test Item Value Reference Range Interpretation Comments U Prot/Creat (test code = U Prot/Creat) 430 21-161 [facility]2020-08-06 14:47:00 Test Item Value Reference Range Interpretation Comments U Prot/Creat (test code = U 0.430 1 0.021-0.161 Prot/Creat) [facility]2020-08-06 14:47:00 Test Item Value Reference Range Interpretation Comments U Protein (test code = U Protein) 49 5-24 [facility]2020-08-06 14:47:00 Test Item Value Reference Range Interpretation Comments Glucose Lvl (test code = Glucose Lvl) 103 65-99 [place] 648970-08-06 14:47:00 Test Item Value Reference Range Interpretation Comments BUN (test code = BUN) 24 7-25 [place] 648970-08-06 14:47:00 Test Item Value Reference Range Interpretation Comments Creatinine Lvl (test code = Creatinine 1.32 0.50-0.99 Lvl) [place] 648970-08-06 14:47:00 Test Item Value Reference Range Interpretation Comments eGFR NON-AFR. KENYAN (test code = 43 eGFR NON-AFR. KENYAN) [facility]2020-08-06 14:47:00 Test Item Value Reference Range Interpretation Comments eGFR (test code = eGFR 50 ) [place] 648970-08-06 14:47:00 Test Item Value Reference Range Interpretation Comments B/C Ratio (test code = B/C Ratio) 18 6-22 [place] 648970-08-06 14:47:00 Test Item Value Reference Range Interpretation Comments Sodium Lvl (test code = Sodium Lvl) 138 135-146 [place] 648970-08-06 14:47:00 Test Item Value Reference Range Interpretation Comments Potassium Lvl (test code = Potassium 4.4 3.5-5.3 Lvl) [place] 648970-08-06 14:47:00 Test Item Value Reference Range Interpretation Comments Chloride Lvl (test code = Chloride Lvl) 102 98-110 [place] 648970-08-06 14:47:00 Test Item Value Reference Range Interpretation Comments CO2 (test code = CO2) 30 20-32 [place] 648970-08-06 14:47:00 Test Item Value Reference Range Interpretation Comments Calcium Lvl (test code = Calcium Lvl) 9.4 8.6-10.4 [place] 648970-08-06 14:47:00 Test Item Value Reference Range Interpretation Comments Phosphorus (test code = Phosphorus) 4.8 2.5-4.5 [place] 648970-08-06 14:47:00 Test Item Value Reference Range Interpretation Comments Albumin Lvl (test code = Albumin Lvl) 3.9 3.6-5.1 [place] [address]-08-06 14:47:00 Test Item Value Reference Range Interpretation Comments Plt Count Estimated (test code = DECREASED Plt Count Estimated) [place] [address]-08-06 14:47:00 Test Item Value Reference Range Interpretation Comments WBC X 10x3 (test code = WBC X 10x3) 7.2 3.8-10.8 [place] [address]-08-06 14:47:00 Test Item Value Reference Range Interpretation Comments RBC X 10x6 (test code = RBC X 10x6) 3.71 3.80-5.10 [place] [address]-08-06 14:47:00 Test Item Value Reference Range Interpretation Comments Hgb (test code = Hgb) 10.7 11.7-15.5 [place] [address]-08-06 14:47:00 Test Item Value Reference Range Interpretation Comments Hct (test code = Hct) 33.9 35.0-45.0 [facility]SprwtsgCNFWBPKSXX6808-79-08 14:47:00 Test Item Value Reference Range Interpretation Comments MCV (test code = MCV) 91.4 80.0-100.0 [place] 083450-08-06 14:47:00 Test Item Value Reference Range Interpretation Comments MCH (test code = MCH) 28.8 pg 27.0-33.0 [facility] CenterYwigyikBTOOKTAQUB4961-94-79 14:47:00 Test Item Value Reference Range Interpretation Comments MCHC (test code = MCHC) 31.6 32.0-36.0 [facility] CenterPbuolivMQBMSFSHWK1837-75-97 14:47:00 Test Item Value Reference Range Interpretation Comments RDW (test code = RDW) 13.9 11.0-15.0 [place] 083450-08-06 14:47:00 Test Item Value Reference Range Interpretation Comments Platelet (test code = Platelet) 110 140-400 [facility] CenterQslnbrtZQVUJECRPN7944-46-01 14:47:00 Test Item Value Reference Range Interpretation Comments MPV (test code = MPV) 11.7 7.5-12.5 [facility] CenterVptpbqqBBTACUHRTW0910-20-26 14:47:00 Test Item Value Reference Range Interpretation Comments Neutrophils # (test code = Neutrophils 5414 4461-8246 #) [facility] CenterXgpmylzKEVZTXMRYM3647-62-57 14:47:00 Test Item Value Reference Range Interpretation Comments Lymphocytes # (test code = Lymphocytes 1723 821-1075 #) [facility] CenterIgedgktCMPMQUBASV0749-09-66 14:47:00 Test Item Value Reference Range Interpretation Comments Monocytes # (test code = Monocytes #) 461 200-950 [place] 083450-08-06 14:47:00 Test Item Value Reference Range Interpretation Comments Eosinophils # (test code = Eosinophils 122 15-500 #) [facility] CenterZfpemokAKNBOFOVHX6452-12-02 14:47:00 Test Item Value Reference Range Interpretation Comments Basophils # (test code 50 See_Comment [Aut omated message] The = Basophils #) system which generated this result tra nsmitted reference range : <=200. The reference r edy was not used to int erpret this result as normal/abnormal . [facility] CenterCfynlguLCLRTUDFXP5517-95-79 14:47:00 Test Item Value Reference Range Interpretation Comments Segs (test code = Segs) 75.2 [facility] WorthXhrnqciNTJLREGXQX7815-92-53 14:47:00 Test Item Value Reference Range Interpretation Comments Lymphocytes (test code = Lymphocytes) 16.0 [facility]SXAOPQJENE3684-74-89 14:47:00 Test Item Value Reference Range Interpretation Comments Monocytes (test code = Monocytes) 6.4 [facility] HospitalNsuppdhLHVMFSMWKC9072-00-35 14:47:00 Test Item Value Reference Range Interpretation Comments Eosinophils (test code = Eosinophils) 1.7 [facility] HospitalMrdtjuzPIQCUKYSRD8207-08-95 14:47:00 Test Item Value Reference Range Interpretation Comments Basophils (test code = Basophils) 0.7 [facility] [id number] 14:47:00 Test Item Value Reference Range Interpretation Comments Result 2 (Urine Culture) See Result Comment (test code = Result 2 (Urine Culture)) [facility] AND [id number] 14:47:00 Test Item Value Reference Range Interpretation Comments UA Color (test code = UA Color) YELLOW [facility] AND [id number] 14:47:00 Test Item Value Reference Range Interpretation Comments UA Turbidity (test code = UA CLOUDY Turbidity) [facility] AND [id number] 14:47:00 Test Item Value Reference Range Interpretation Comments UA Spec Grav (test code = UA Spec 1.017 1 1.001-1.035 Grav) [facility] AND [id number] 14:47:00 Test Item Value Reference Range Interpretation Comments UA pH (test code = UA pH) 5.5 1 5.0-8.0 [facility] AND [id number] 14:47:00 Test Item Value Reference Range Interpretation Comments UA Glucose (test code = UA Glucose) NEGATIVE [facility] AND [id number] 14:47:00 Test Item Value Reference Range Interpretation Comments UA Bili (test code = UA Bili) NEGATIVE [facility] AND [id number] 14:47:00 Test Item Value Reference Range Interpretation Comments UA Ketones (test code = UA Ketones) NEGATIVE [facility] AND [id number] 14:47:00 Test Item Value Reference Range Interpretation Comments UA Blood (test code = UA Blood) 1+ [facility] [id number] 14:47:00 Test Item Value Reference Range Interpretation Comments UA Protein (test code = UA Protein) [facility] [id number] 14:47:00 Test Item Value Reference Range Interpretation Comments UA Nitrite (test code = UA Nitrite) POSITIVE [facility] [id number] 14:47:00 Test Item Value Reference Range Interpretation Comments UA Leuk Est (test code = UA Leuk Est) 2+ [facility] [id number] 14:47:00 Test Item Value Reference Range Interpretation Comments UA WBC (test code = UA WBC) > OR = 60 [facility] [id number] 14:47:00 Test Item Value Reference Range Interpretation Comments UA RBC (test code = UA RBC) 0-2 [facility] [id number] 14:47:00 Test Item Value Reference Range Interpretation Comments UA Sq Epi (test code = UA Sq Epi) NONE SEEN [facility] [id number] 14:47:00 Test Item Value Reference Range Interpretation Comments UA Bacteria (test code = UA Bacteria) MANY [facility] [id number] 14:47:00 Test Item Value Reference Range Interpretation Comments UA Hyal Cast (test code = UA Hyal NONE SEEN Cast) [facility] AND [id number] 14:47:00 Test Item Value Reference Range Interpretation Comments UA Reflex (test code CULTURE INDICATED - = UA Reflex) RESULTS TO FOLLOW [facility] [id number] 14:47:00 Test Item Value Reference Range Interpretation Comments U Creat mg/dL (test code = U Creat 114 20-275 mg/dL) [facility] [id number] 14:47:00 Test Item Value Reference Range Interpretation Comments U Alb (test code = U Alb) 16.7 [facility] [id number] 14:47:00 Test Item Value Reference Range Interpretation Comments U Alb/Crea (test code = U Alb/Crea) 146 [facility] [id number] 14:47:00 Test Item Value Reference Range Interpretation Comments Vitamin D, 25-OH, Total (test code = 37 30-100 Vitamin D, 25-OH, Total) [place] 648970-08-06 14:47:00 Test Item Value Reference Range Interpretation Comments U Creat mg/dL (test code = U Creat 114 20-275 mg/dL) [facility]2020-08-06 14:47:00 Test Item Value Reference Range Interpretation Comments U Prot/Creat (test code = U Prot/Creat) 430 21-161 [place] 648970-08-06 14:47:00 Test Item Value Reference Range Interpretation Comments U Prot/Creat (test code = U 0.430 1 0.021-0.161 Prot/Creat) [place] 648970-08-06 14:47:00 Test Item Value Reference Range Interpretation Comments U Protein (test code = U Protein) 49 5-24 [place] 648970-08-06 14:47:00 Test Item Value Reference Range Interpretation Comments Glucose Lvl (test code = Glucose Lvl) 103 65-99 [place] 648970-08-06 14:47:00 Test Item Value Reference Range Interpretation Comments BUN (test code = BUN) 24 7-25 [place] 648970-08-06 14:47:00 Test Item Value Reference Range Interpretation Comments Creatinine Lvl (test code = Creatinine 1.32 0.50-0.99 Lvl) [facility]2020-08-06 14:47:00 Test Item Value Reference Range Interpretation Comments eGFR NON-AFR. KENYAN (test code = 43 eGFR NON-AFR. KENYAN) [facility]2020-08-06 14:47:00 Test Item Value Reference Range Interpretation Comments eGFR (test code = eGFR 50 ) [place] 648970-08-06 14:47:00 Test Item Value Reference Range Interpretation Comments B/C Ratio (test code = B/C Ratio) 18 6-22 [place] 648970-08-06 14:47:00 Test Item Value Reference Range Interpretation Comments Sodium Lvl (test code = Sodium Lvl) 138 135-146 [place] 648970-08-06 14:47:00 Test Item Value Reference Range Interpretation Comments Potassium Lvl (test code = Potassium 4.4 3.5-5.3 Lvl) [place] 648970-08-06 14:47:00 Test Item Value Reference Range Interpretation Comments Chloride Lvl (test code = Chloride Lvl) 102 98-110 [place] 648970-08-06 14:47:00 Test Item Value Reference Range Interpretation Comments CO2 (test code = CO2) 30 20-32 [place] 648970-08-06 14:47:00 Test Item Value Reference Range Interpretation Comments Calcium Lvl (test code = Calcium Lvl) 9.4 8.6-10.4 [place] [address]-08-06 14:47:00 Test Item Value Reference Range Interpretation Comments Phosphorus (test code = Phosphorus) 4.8 2.5-4.5 [place] 648970-08-06 14:47:00 Test Item Value Reference Range Interpretation Comments Albumin Lvl (test code = Albumin Lvl) 3.9 3.6-5.1 [place] [address]-08-06 14:47:00 Test Item Value Reference Range Interpretation Comments Plt Count Estimated (test code = DECREASED Plt Count Estimated) [place] [address]-08-06 14:47:00 Test Item Value Reference Range Interpretation Comments WBC X 10x3 (test code = WBC X 10x3) 7.2 3.8-10.8 [place] [address]-08-06 14:47:00 Test Item Value Reference Range Interpretation Comments RBC X 10x6 (test code = RBC X 10x6) 3.71 3.80-5.10 [place] [address]-08-06 14:47:00 Test Item Value Reference Range Interpretation Comments Hgb (test code = Hgb) 10.7 11.7-15.5 [place] [address]-08-06 14:47:00 Test Item Value Reference Range Interpretation Comments Hct (test code = Hct) 33.9 35.0-45.0 [place] [address]-08-06 14:47:00 Test Item Value Reference Range Interpretation Comments MCV (test code = MCV) 91.4 80.0-100.0 [place] [address]-08-06 14:47:00 Test Item Value Reference Range Interpretation Comments MCH (test code = MCH) 28.8 pg 27.0-33.0 [place] [address]-08-06 14:47:00 Test Item Value Reference Range Interpretation Comments MCHC (test code = MCHC) 31.6 32.0-36.0 [facility] CenterOvhigitJOKZGGTWDN7727-55-66 14:47:00 Test Item Value Reference Range Interpretation Comments RDW (test code = RDW) 13.9 11.0-15.0 [facility] CenterEihbnpsRDRVSSFKPH2355-64-23 14:47:00 Test Item Value Reference Range Interpretation Comments Platelet (test code = Platelet) 110 140-400 [facility] CenterEsapticIBISOCXJJA7128-91-16 14:47:00 Test Item Value Reference Range Interpretation Comments MPV (test code = MPV) 11.7 7.5-12.5 [facility] CenterIcwlhrrKPZLBHYLDV8649-48-63 14:47:00 Test Item Value Reference Range Interpretation Comments Neutrophils # (test code = Neutrophils 5414 3619-2857 #) [facility] CenterMbmrbtiZJEUIQIVBW1027-65-74 14:47:00 Test Item Value Reference Range Interpretation Comments Lymphocytes # (test code = Lymphocytes 2294 213-3964 #) [facility] CenterTxkokhxZGNFPHXUWM1011-85-25 14:47:00 Test Item Value Reference Range Interpretation Comments Monocytes # (test code = Monocytes #) 461 200-950 [facility] CenterEpwaahpTZCNAYOHNW3908-51-14 14:47:00 Test Item Value Reference Range Interpretation Comments Eosinophils # (test code = Eosinophils 122 15-500 #) [facility] CenterVhndrnyNJJYNCSCMI8920-07-36 14:47:00 Test Item Value Reference Range Interpretation Comments Basophils # (test code 50 See_Comment [Aut omated message] The = Basophils #) system which generated this result tra nsmitted reference range : <=200. The reference r edy was not used to int erpret this result as normal/abnormal . [facility] CenterTsmgxpfDIKRHKUSTW9760-89-17 14:47:00 Test Item Value Reference Range Interpretation Comments Segs (test code = Segs) 75.2 [facility] CenterDgtsxtcGLIVWJLYZL3062-18-27 14:47:00 Test Item Value Reference Range Interpretation Comments Lymphocytes (test code = Lymphocytes) 16.0 [facility] CenterReqzoiwKUAKIBUDEW6334-95-54 14:47:00 Test Item Value Reference Range Interpretation Comments Monocytes (test code = Monocytes) 6.4 [facility] CenterWrqplsfXCKORGFVVC3256-38-88 14:47:00 Test Item Value Reference Range Interpretation Comments Eosinophils (test code = Eosinophils) 1.7 [facility] CenterHkxywpgQOXDCYWODT9173-04-63 14:47:00 Test Item Value Reference Range Interpretation Comments Basophils (test code = Basophils) 0.7 [facility] [id number] 14:47:00 Test Item Value Reference Range Interpretation Comments Result 2 (Urine Culture) See Result Comment (test code = Result 2 (Urine Culture)) [facility] [id number] 14:47:00 Test Item Value Reference Range Interpretation Comments UA Color (test code = UA Color) YELLOW [facility] [id number] 14:47:00 Test Item Value Reference Range Interpretation Comments UA Turbidity (test code = UA CLOUDY Turbidity) [facility] [id number] 14:47:00 Test Item Value Reference Range Interpretation Comments UA Spec Grav (test code = UA Spec 1.017 1 1.001-1.035 Grav) [facility] [id number] 14:47:00 Test Item Value Reference Range Interpretation Comments UA pH (test code = UA pH) 5.5 1 5.0-8.0 [facility] [id number] 14:47:00 Test Item Value Reference Range Interpretation Comments UA Glucose (test code = UA Glucose) NEGATIVE [facility] [id number] 14:47:00 Test Item Value Reference Range Interpretation Comments UA Bili (test code = UA Bili) NEGATIVE [facility] [id number] 14:47:00 Test Item Value Reference Range Interpretation Comments UA Ketones (test code = UA Ketones) NEGATIVE [facility] [id number] 14:47:00 Test Item Value Reference Range Interpretation Comments UA Blood (test code = UA Blood) 1+ [facility] [id number] 14:47:00 Test Item Value Reference Range Interpretation Comments UA Protein (test code = UA Protein) 1+ [facility] [id number] 14:47:00 Test Item Value Reference Range Interpretation Comments UA Nitrite (test code = UA Nitrite) POSITIVE [facility] [id number] 14:47:00 Test Item Value Reference Range Interpretation Comments UA Leuk Est (test code = UA Leuk Est) 2+ [facility] [id number] 14:47:00 Test Item Value Reference Range Interpretation Comments UA WBC (test code = UA WBC) > OR = 60 [facility] AND [id number] 14:47:00 Test Item Value Reference Range Interpretation Comments UA RBC (test code = UA RBC) 0-2 [facility] AND [id number] 14:47:00 Test Item Value Reference Range Interpretation Comments UA Sq Epi (test code = UA Sq Epi) NONE SEEN [facility] AND [id number] 14:47:00 Test Item Value Reference Range Interpretation Comments UA Bacteria (test code = UA Bacteria) MANY [facility] AND [id number] 14:47:00 Test Item Value Reference Range Interpretation Comments UA Hyal Cast (test code = UA Hyal NONE SEEN Cast) [facility] AND [id number] 14:47:00 Test Item Value Reference Range Interpretation Comments UA Reflex (test code CULTURE INDICATED - = UA Reflex) RESULTS TO FOLLOW [facility]2020-08-06 14:47:00 Test Item Value Reference Range Interpretation Comments U Creat mg/dL (test code = U Creat 114 20-275 mg/dL) [facility]2020-08-06 14:47:00 Test Item Value Reference Range Interpretation Comments U Alb (test code = U Alb) 16.7 [facility]2020-08-06 14:47:00 Test Item Value Reference Range Interpretation Comments U Alb/Crea (test code = U Alb/Crea) 146 [facility]2020-08-06 14:47:00 Test Item Value Reference Range Interpretation Comments Vitamin D, 25-OH, Total (test code = 37 30-100 Vitamin D, 25-OH, Total) [facility]2020-08-06 14:47:00 Test Item Value Reference Range Interpretation Comments U Creat mg/dL (test code = U Creat 114 20-275 mg/dL) [facility]2020-08-06 14:47:00 Test Item Value Reference Range Interpretation Comments U Prot/Creat (test code = U Prot/Creat) 430 21-161 [facility]2020-08-06 14:47:00 Test Item Value Reference Range Interpretation Comments U Prot/Creat (test code = U 0.430 1 0.021-0.161 Prot/Creat) [place] 648970-08-06 14:47:00 Test Item Value Reference Range Interpretation Comments U Protein (test code = U Protein) 49 5-24 [place] 648970-08-06 14:47:00 Test Item Value Reference Range Interpretation Comments Glucose Lvl (test code = Glucose Lvl) 103 65-99 [place] 648970-08-06 14:47:00 Test Item Value Reference Range Interpretation Comments BUN (test code = BUN) 24 7-25 [place] 648970-08-06 14:47:00 Test Item Value Reference Range Interpretation Comments Creatinine Lvl (test code = Creatinine 1.32 0.50-0.99 Lvl) [place] 648970-08-06 14:47:00 Test Item Value Reference Range Interpretation Comments eGFR NON-AFR. KENYAN (test code = 43 eGFR NON-AFR. KENYAN) [facility]2020-08-06 14:47:00 Test Item Value Reference Range Interpretation Comments eGFR (test code = eGFR 50 ) [place] 648970-08-06 14:47:00 Test Item Value Reference Range Interpretation Comments B/C Ratio (test code = B/C Ratio) 18 6-22 [place] 648970-08-06 14:47:00 Test Item Value Reference Range Interpretation Comments Sodium Lvl (test code = Sodium Lvl) 138 135-146 [place] 648970-08-06 14:47:00 Test Item Value Reference Range Interpretation Comments Potassium Lvl (test code = Potassium 4.4 3.5-5.3 Lvl) [place] 648970-08-06 14:47:00 Test Item Value Reference Range Interpretation Comments Chloride Lvl (test code = Chloride Lvl) 102 98-110 [place] 648970-08-06 14:47:00 Test Item Value Reference Range Interpretation Comments CO2 (test code = CO2) 30 20-32 [place] 648970-08-06 14:47:00 Test Item Value Reference Range Interpretation Comments Calcium Lvl (test code = Calcium Lvl) 9.4 8.6-10.4 [place] 648970-08-06 14:47:00 Test Item Value Reference Range Interpretation Comments Phosphorus (test code = Phosphorus) 4.8 2.5-4.5 [facility]2020-08-06 14:47:00 Test Item Value Reference Range Interpretation Comments Albumin Lvl (test code = Albumin Lvl) 3.9 3.6-5.1 [facility]qldcxkYUYEOANUWN4222-24-89 14:47:00 Test Item Value Reference Range Interpretation Comments Plt Count Estimated (test code = DECREASED Plt Count Estimated) [facility] CenterOxlcyfbGDEXOJBRVP5184-47-58 14:47:00 Test Item Value Reference Range Interpretation Comments WBC X 10x3 (test code = WBC X 10x3) 7.2 3.8-10.8 [facility] CenterWkpvfvkEFLNNTMGFI2762-53-47 14:47:00 Test Item Value Reference Range Interpretation Comments RBC X 10x6 (test code = RBC X 10x6) 3.71 3.80-5.10 [facility] CenterUdjmrcwWRCGJVRKNW1751-72-81 14:47:00 Test Item Value Reference Range Interpretation Comments Hgb (test code = Hgb) 10.7 11.7-15.5 [facility] CenterDnqyqcjJZWCOQHFGE1970-45-97 14:47:00 Test Item Value Reference Range Interpretation Comments Hct (test code = Hct) 33.9 35.0-45.0 [facility] CenterHbcaohmMJCBEWBDCR6901-79-12 14:47:00 Test Item Value Reference Range Interpretation Comments MCV (test code = MCV) 91.4 80.0-100.0 [facility] CenterQobtwsjILZSOOUSZG3303-97-47 14:47:00 Test Item Value Reference Range Interpretation Comments MCH (test code = MCH) 28.8 pg 27.0-33.0 [facility] CenterSqpacuiYJKYXIWHGQ3933-92-58 14:47:00 Test Item Value Reference Range Interpretation Comments MCHC (test code = MCHC) 31.6 32.0-36.0 [place] 083450-08-06 14:47:00 Test Item Value Reference Range Interpretation Comments RDW (test code = RDW) 13.9 11.0-15.0 [place] 083450-08-06 14:47:00 Test Item Value Reference Range Interpretation Comments Platelet (test code = Platelet) 110 140-400 [facility] CenterCqgoemjMLUYUASMMT9962-84-66 14:47:00 Test Item Value Reference Range Interpretation Comments MPV (test code = MPV) 11.7 7.5-12.5 [facility]wgr[facility]tnLHNYRWGWVD8997-22-54 14:47:00 Test Item Value Reference Range Interpretation Comments Neutrophils # (test code = Neutrophils 5414 4817-0465 #) [facility] WorthDozadboSNGHHUBUBT0156-76-07 14:47:00 Test Item Value Reference Range Interpretation Comments Lymphocytes # (test code = Lymphocytes 5640 264-7775 #) [facility] WorthHicqcdsVCRBHFAKKX2399-31-04 14:47:00 Test Item Value Reference Range Interpretation Comments Monocytes # (test code = Monocytes #) 461 200-950 [facility] WorthBsdndaqBDJNBYDYNY3228-46-12 14:47:00 Test Item Value Reference Range Interpretation Comments Eosinophils # (test code = Eosinophils 122 15-500 #) [facility] HospitalWnhssqjCEBKGILNTB0739-26-07 14:47:00 Test Item Value Reference Range Interpretation Comments Basophils # (test code 50 See_Comment [Aut omated message] The = Basophils #) system which generated this result tra nsmitted reference range : <=200. The reference r edy was not used to int erpret this result as normal/abnormal . [facility] WorthEkcwyafBIYYWXNCSX6336-06-49 14:47:00 Test Item Value Reference Range Interpretation Comments Segs (test code = Segs) 75.2 [facility] HospitalWeelweaHKTFHKBJGC5069-82-29 14:47:00 Test Item Value Reference Range Interpretation Comments Lymphocytes (test code = Lymphocytes) 16.0 [facility] WorthOblxgrbUBZZELBKET5738-51-20 14:47:00 Test Item Value Reference Range Interpretation Comments Monocytes (test code = Monocytes) 6.4 [facility] WorthRfrcrzqUYMINVKQTI9381-49-21 14:47:00 Test Item Value Reference Range Interpretation Comments Eosinophils (test code = Eosinophils) 1.7 [facility] WorthQxyfxkgFTWAYZEHKO2996-18-78 14:47:00 Test Item Value Reference Range Interpretation Comments Basophils (test code = Basophils) 0.7 [facility]annREF[facility] LAB JUZMJKT1714-37-20 14:47:00 Test Item Value Reference Range Interpretation Comments Result 2 (Urine Culture) See Result Comment (test code = Result 2 (Urine Culture)) [facility] [id number] 14:47:00 Test Item Value Reference Range Interpretation Comments UA Color (test code = UA Color) YELLOW [facility] [id number] 14:47:00 Test Item Value Reference Range Interpretation Comments UA Turbidity (test code = [facility]A CLOUDY Turbidity) [facility] [id number] 14:47:00 Test Item Value Reference Range Interpretation Comments UA Spec Grav (test code = UA Spec 1.017 1 1.001-1.035 Grav) [facility] [id number] 14:47:00 Test Item Value Reference Range Interpretation Comments UA pH (test code = UA pH) 5.5 1 5.0-8.0 [facility] [id number] 14:47:00 Test Item Value Reference Range Interpretation Comments UA Glucose (test code = UA Glucose) NEGATIVE [facility] [id number] 14:47:00 Test Item Value Reference Range Interpretation Comments UA Bili (test code = UA Bili) NEGATIVE [facility] [id number] 14:47:00 Test Item Value Reference Range Interpretation Comments UA Ketones (test code = UA Ketones) NEGATIVE [facility] [id number] 14:47:00 Test Item Value Reference Range Interpretation Comments UA Blood (test code = UA Blood) 1+ [facility] [id number] 14:47:00 Test Item Value Reference Range Interpretation Comments UA Protein (test code = UA Protein) 1+ [facility] [id number] 14:47:00 Test Item Value Reference Range Interpretation Comments UA Nitrite (test code = UA Nitrite) POSITIVE [facility] [id number] 14:47:00 Test Item Value Reference Range Interpretation Comments UA Leuk Est (test code = UA Leuk Est) 2+ [facility] [id number] 14:47:00 Test Item Value Reference Range Interpretation Comments UA WBC (test code = UA WBC) > OR = 60 [facility] [id number] 14:47:00 Test Item Value Reference Range Interpretation Comments UA RBC (test code = UA RBC) 0-2 [facility] [id number] 14:47:00 Test Item Value Reference Range Interpretation Comments UA Sq Epi (test code = UA Sq Epi) [facility]EN [facility] [id number] 14:47:00 Test Item Value Reference Range Interpretation Comments UA Bacteria (test code = UA Bacteria) [facility]ANY [facility] [id number] 14:47:00 Test Item Value Reference Range Interpretation Comments UA Hyal Cast (test code = UA Hyal NONE SEEN Cast) [facility] AND [id number] 14:47:00 Test Item Value Reference Range Interpretation Comments UA Reflex (test code CULTURE INDICATED - = UA Reflex) RESULTS TO FOLLOW [place] 649360-08-06 14:47:00 Test Item Value Reference Range Interpretation Comments U Creat mg/dL (test code = U Creat 114 20-275 mg/dL) [facility]2020-08-06 14:47:00 Test Item Value Reference Range Interpretation Comments U Alb (test code = U Alb) 16.7 [place] 649360-08-06 14:47:00 Test Item Value Reference Range Interpretation Comments U Alb/Crea (test code = U Alb/Crea) 146 [place] 648970-08-06 14:47:00 Test Item Value Reference Range Interpretation Comments Vitamin D, 25-OH, Total (test code = 37 30-100 Vitamin D, 25-OH, Total) [facility]2020-08-06 14:47:00 Test Item Value Reference Range Interpretation Comments U Creat mg/dL (test code = U Creat 114 20-275 mg/dL) [place] 648970-08-06 14:47:00 Test Item Value Reference Range Interpretation Comments U Prot/Creat (test code = U Prot/Creat) 430 21-161 [facility]2020-08-06 14:47:00 Test Item Value Reference Range Interpretation Comments U Prot/Creat (test code = U 0.430 1 0.021-0.161 Prot/Creat) [facility]2020-08-06 14:47:00 Test Item Value Reference Range Interpretation Comments U Protein (test code = U Protein) 49 5-24 [place] 648970-08-06 14:47:00 Test Item Value Reference Range Interpretation Comments Glucose Lvl (test code = Glucose Lvl) 103 65-99 [place] 648970-08-06 14:47:00 Test Item Value Reference Range Interpretation Comments BUN (test code = BUN) 24 7-25 [place] 648970-08-06 14:47:00 Test Item Value Reference Range Interpretation Comments Creatinine Lvl (test code = Creatinine 1.32 0.50-0.99 Lvl) [place] 648970-08-06 14:47:00 Test Item Value Reference Range Interpretation Comments eGFR NON-AFR. KENYAN (test code = 43 eGFR NON-AFR. KENYAN) [place] 648970-08-06 14:47:00 Test Item Value Reference Range Interpretation Comments eGFR (test code = eGFR 50 ) [place] 648970-08-06 14:47:00 Test Item Value Reference Range Interpretation Comments B/C Ratio (test code = B/C Ratio) 18 6-22 [place] 648970-08-06 14:47:00 Test Item Value Reference Range Interpretation Comments Sodium Lvl (test code = Sodium Lvl) 138 135-146 [place] 648970-08-06 14:47:00 Test Item Value Reference Range Interpretation Comments Potassium Lvl (test code = Potassium 4.4 3.5-5.3 Lvl) [facility]2020-08-06 14:47:00 Test Item Value Reference Range Interpretation Comments Chloride Lvl (test code = Chloride Lvl) 102 98-110 [place] 648970-08-06 14:47:00 Test Item Value Reference Range Interpretation Comments CO2 (test code = CO2) 30 20-32 [place] 648970-08-06 14:47:00 Test Item Value Reference Range Interpretation Comments Calcium Lvl (test code = Calcium Lvl) 9.4 8.6-10.4 [place] 648970-08-06 14:47:00 Test Item Value Reference Range Interpretation Comments Phosphorus (test code = Phosphorus) 4.8 2.5-4.5 [place] 648970-08-06 14:47:00 Test Item Value Reference Range Interpretation Comments Albumin Lvl (test code = Albumin Lvl) 3.9 3.6-5.1 [place] 083450-08-06 14:47:00 Test Item Value Reference Range Interpretation Comments Plt Count Estimated (test code = DECREASED Plt Count Estimated) [facility] CenterXyvxyqzTCPGULZZIJ4224-45-52 14:47:00 Test Item Value Reference Range Interpretation Comments WBC X 10x3 (test code = WBC X 10x3) 7.2 3.8-10.8 [facility] CenterEghqrfqDZUMJFSWOQ6052-76-25 14:47:00 Test Item Value Reference Range Interpretation Comments RBC X 10x6 (test code = RBC X 10x6) 3.71 3.80-5.10 [facility] CenterKnipereVRFNKDTBHM6581-36-24 14:47:00 Test Item Value Reference Range Interpretation Comments Hgb (test code = Hgb) 10.7 11.7-15.5 [facility] CenterVmxhsvwGWTKDZADUL6615-10-37 14:47:00 Test Item Value Reference Range Interpretation Comments Hct (test code = Hct) 33.9 35.0-45.0 [facility] CenterXqutjkrTURIBRXCVK9743-84-88 14:47:00 Test Item Value Reference Range Interpretation Comments MCV (test code = MCV) 91.4 80.0-100.0 [facility] CenterSnsgkqjCJOJBTDTXP1741-31-61 14:47:00 Test Item Value Reference Range Interpretation Comments MCH (test code = MCH) 28.8 pg 27.0-33.0 [facility] CenterBapwzriXXTCGURNPI6512-86-55 14:47:00 Test Item Value Reference Range Interpretation Comments MCHC (test code = MCHC) 31.6 32.0-36.0 [facility] CenterGgfrzvoBDUBFNUSIZ2090-35-63 14:47:00 Test Item Value Reference Range Interpretation Comments RDW (test code = RDW) 13.9 11.0-15.0 [facility] CenterLeeppleUZTFOXKMDQ5691-41-76 14:47:00 Test Item Value Reference Range Interpretation Comments Platelet (test code = Platelet) 110 140-400 [facility] CenterEbjjhxbYTMEECCASQ6354-71-81 14:47:00 Test Item Value Reference Range Interpretation Comments MPV (test code = MPV) 11.7 7.5-12.5 [facility] CenterSlrerfcTVTLJBDOFY7481-26-30 14:47:00 Test Item Value Reference Range Interpretation Comments Neutrophils # (test code = Neutrophils 5414 4967-8665 #) [facility] CenterSsdmeklIWTJDWHGIQ5896-10-82 14:47:00 Test Item Value Reference Range Interpretation Comments Lymphocytes # (test code = Lymphocytes 0961 576-0034 #) [facility] CenterRxvzzaiPBIISAPMHX8750-69-00 14:47:00 Test Item Value Reference Range Interpretation Comments Monocytes # (test code = Monocytes #) 461 200-950 [facility] CenterStxsspjJEXTECXQUB8660-26-68 14:47:00 Test Item Value Reference Range Interpretation Comments Eosinophils # (test code = Eosinophils 122 15-500 #) [facility] WorthVtnjzciCSZOUWBYKS0204-11-94 14:47:00 Test Item Value Reference Range Interpretation Comments Basophils # (test code 50 See_Comment [Aut omated message] The = Basophils #) system which generated this result tra nsmitted reference range : <=200. The reference r edy was not used to int erpret this result as normal/abnormal . [facility] WorthVdsschzNKLTMVQYIR6519-83-67 14:47:00 Test Item Value Reference Range Interpretation Comments Segs (test code = Segs) 75.2 [facility] HospitalVqyozfcSKFMHXUSXN2611-73-70 14:47:00 Test Item Value Reference Range Interpretation Comments Lymphocytes (test code = Lymphocytes) 16.0 [facility] HospitalOierprpCGYAMJBCDZ7717-69-30 14:47:00 Test Item Value Reference Range Interpretation Comments Monocytes (test code = Monocytes) 6.4 [facility] HospitalHuheeqvRSLBQPJFVI8654-86-77 14:47:00 Test Item Value Reference Range Interpretation Comments Eosinophils (test code = Eosinophils) 1.7 [facility] WorthXmasqyfFTYRUDFVBU2035-75-82 14:47:00 Test Item Value Reference Range Interpretation Comments Basophils (test code = Basophils) 0.7 [facility] [id number] 14:47:00 Test Item Value Reference Range Interpretation Comments Result 2 (Urine Culture) See Result Comment (test code = Result 2 (Urine Culture)) [facility] AND [id number] 14:47:00 Test Item Value Reference Range Interpretation Comments UA Color (test code = UA Color) YELLOW [facility] AND [id number] 14:47:00 Test Item Value Reference Range Interpretation Comments UA Turbidity (test code = UA CLOUDY Turbidity) [facility] AND [id number] 14:47:00 Test Item Value Reference Range Interpretation Comments UA Spec Grav (test code = UA Spec 1.017 1 1.001-1.035 Grav) [facility] AND [id number] 14:47:00 Test Item Value Reference Range Interpretation Comments UA pH (test code = UA pH) 5.5 1 5.0-8.0 [facility] AND [id number] 14:47:00 Test Item Value Reference Range Interpretation Comments UA Glucose (test code = UA Glucose) NEGATIVE [facility] [id number] 14:47:00 Test Item Value Reference Range Interpretation Comments UA Bili (test code = UA Bili) [facility]GATIVE [facility] [id number] 14:47:00 Test Item Value Reference Range Interpretation Comments UA Ketones (test code = UA Ketones) NEGATIVE [facility] [id number] 14:47:00 Test Item Value Reference Range Interpretation Comments UA Blood (test code = UA Blood) 1+ [facility] [id number] 14:47:00 Test Item Value Reference Range Interpretation Comments UA Protein (test code = UA Protein) 1+ [facility] [id number] 14:47:00 Test Item Value Reference Range Interpretation Comments UA Nitrite (test code = UA Nitrite) POSITIVE [facility] [id number] 14:47:00 Test Item Value Reference Range Interpretation Comments UA Leuk Est (test code = UA Leuk Est) 2+ [facility] [id number] 14:47:00 Test Item Value Reference Range Interpretation Comments UA WBC (test code = UA WBC) > OR = 60 [facility] [id number] 14:47:00 Test Item Value Reference Range Interpretation Comments UA RBC (test code = UA RBC) 0-2 [facility] [id number] 14:47:00 Test Item Value Reference Range Interpretation Comments UA Sq Epi (test code = UA Sq Epi) NONE SEEN [facility] [id number] 14:47:00 Test Item Value Reference Range Interpretation Comments UA Bacteria (test code = UA Bacteria) MANY [facility] [id number] 14:47:00 Test Item Value Reference Range Interpretation Comments UA Hyal Cast (test code = UA Hyal NONE SEEN Cast) [facility] [id number] 14:47:00 Test Item Value Reference Range Interpretation Comments UA Reflex (test code CULTURE INDICATED - = UA Reflex) RESULTS TO FOLLOW [facility] [id number] 14:47:00 Test Item Value Reference Range Interpretation Comments U Creat mg/dL (test code = U Creat 114 20-275 mg/dL) [facility] [id number] 14:47:00 Test Item Value Reference Range Interpretation Comments U Alb (test code = U Alb) 16.7 [facility] [id number] 14:47:00 Test Item Value Reference Range Interpretation Comments U Alb/Crea (test code = U Alb/Crea) 146 [facility] [id number] 14:47:00 Test Item Value Reference Range Interpretation Comments Vitamin D, 25-OH, Total (test code = 37 30-100 Vitamin D, 25-OH, Total) [facility]2020-08-06 14:47:00 Test Item Value Reference Range Interpretation Comments U Creat mg/dL (test code = U Creat 114 20-275 mg/dL) [facility]2020-08-06 14:47:00 Test Item Value Reference Range Interpretation Comments U Prot/Creat (test code = U Prot/Creat) 430 21-161 [place] 648970-08-06 14:47:00 Test Item Value Reference Range Interpretation Comments U Prot/Creat (test code = U 0.430 1 0.021-0.161 Prot/Creat) [facility]2020-08-06 14:47:00 Test Item Value Reference Range Interpretation Comments U Protein (test code = U Protein) 49 5-24 [facility]2020-08-06 14:47:00 Test Item Value Reference Range Interpretation Comments Glucose Lvl (test code = Glucose Lvl) 103 65-99 [facility]2020-08-06 14:47:00 Test Item Value Reference Range Interpretation Comments BUN (test code = BUN) 24 7-25 [facility]2020-08-06 14:47:00 Test Item Value Reference Range Interpretation Comments Creatinine Lvl (test code = Creatinine 1.32 0.50-0.99 Lvl) [facility]2020-08-06 14:47:00 Test Item Value Reference Range Interpretation Comments eGFR NON-AFR. KENYAN (test code = 43 eGFR NON-AFR. KENYAN) [facility]2020-08-06 14:47:00 Test Item Value Reference Range Interpretation Comments eGFR (test code = eGFR 50 ) [place] 648970-08-06 14:47:00 Test Item Value Reference Range Interpretation Comments B/C Ratio (test code = B/C Ratio) 18 6-22 [facility]2020-08-06 14:47:00 Test Item Value Reference Range Interpretation Comments Sodium Lvl (test code = Sodium Lvl) 138 135-146 [place] 648970-08-06 14:47:00 Test Item Value Reference Range Interpretation Comments Potassium Lvl (test code = Potassium 4.4 3.5-5.3 Lvl) [place] 648970-08-06 14:47:00 Test Item Value Reference Range Interpretation Comments Chloride Lvl (test code = Chloride Lvl) 102 98-110 [place] 648970-08-06 14:47:00 Test Item Value Reference Range Interpretation Comments CO2 (test code = CO2) 30 20-32 [place] 648970-08-06 14:47:00 Test Item Value Reference Range Interpretation Comments Calcium Lvl (test code = Calcium Lvl) 9.4 8.6-10.4 [place] 648970-08-06 14:47:00 Test Item Value Reference Range Interpretation Comments Phosphorus (test code = Phosphorus) 4.8 2.5-4.5 [place] 648970-08-06 14:47:00 Test Item Value Reference Range Interpretation Comments Albumin Lvl (test code = Albumin Lvl) 3.9 3.6-5.1 [place] 083450-08-06 14:47:00 Test Item Value Reference Range Interpretation Comments Plt Count Estimated (test code = DECREASED Plt Count Estimated) [place] [address]-08-06 14:47:00 Test Item Value Reference Range Interpretation Comments WBC X 10x3 (test code = WBC X 10x3) 7.2 3.8-10.8 [place] 9[address]-08-06 14:47:00 Test Item Value Reference Range Interpretation Comments RBC X 10x6 (test code = RBC X 10x6) 3.71 3.80-5.10 [place] [address]-08-06 14:47:00 Test Item Value Reference Range Interpretation Comments Hgb (test code = Hgb) 10.7 11.7-15.5 [place] [address]-08-06 14:47:00 Test Item Value Reference Range Interpretation Comments Hct (test code = Hct) 33.9 35.0-45.0 [place] [address]-08-06 14:47:00 Test Item Value Reference Range Interpretation Comments MCV (test code = MCV) 91.4 80.0-100.0 [facility]HrzskjsAQZVIFSTXY8271-92-76 14:47:00 Test Item Value Reference Range Interpretation Comments MCH (test code = MCH) 28.8 pg 27.0-33.0 [facility] CenterQikjsndOVIJZNCJFK5308-21-15 14:47:00 Test Item Value Reference Range Interpretation Comments MCHC (test code = MCHC) 31.6 32.0-36.0 [facility] CenterKrtjavcJHIQFHFNFS7434-67-93 14:47:00 Test Item Value Reference Range Interpretation Comments RDW (test code = RDW) 13.9 11.0-15.0 [facility] CenterMbhcmpkWXJIRORMTZ5462-39-60 14:47:00 Test Item Value Reference Range Interpretation Comments Platelet (test code = Platelet) 110 140-400 [facility] CenterGlbzdijUPRUJJZJVD0053-76-96 14:47:00 Test Item Value Reference Range Interpretation Comments MPV (test code = MPV) 11.7 7.5-12.5 [facility] CenterEhebospNBNUSVHTZE1126-92-99 14:47:00 Test Item Value Reference Range Interpretation Comments Neutrophils # (test code = Neutrophils 5414 7994-2560 #) [facility] CenterScgxotuQRKPPENMJY0280-03-33 14:47:00 Test Item Value Reference Range Interpretation Comments Lymphocytes # (test code = Lymphocytes 0785 048-8705 #) [facility] CenterSiudfvnGLEKYDNZLL2336-32-38 14:47:00 Test Item Value Reference Range Interpretation Comments Monocytes # (test code = Monocytes #) 461 200-950 [facility] CenterUtcmigaSWQQVEDAYE5459-25-71 14:47:00 Test Item Value Reference Range Interpretation Comments Eosinophils # (test code = Eosinophils 122 15-500 #) [facility] CenterYfdmebnXAXVZVFYOH5280-78-04 14:47:00 Test Item Value Reference Range Interpretation Comments Basophils # (test code 50 See_Comment [Aut omated message] The = Basophils #) system which generated this result tra nsmitted reference range : <=200. The reference r edy was not used to int erpret this result as normal/abnormal . [facility] CenterFogcaevLIWQSIHHYP2809-81-99 14:47:00 Test Item Value Reference Range Interpretation Comments Segs (test code = Segs) 75.2 [facility] CenterCvaulwcJVFZMHWFBN1326-90-56 14:47:00 Test Item Value Reference Range Interpretation Comments Lymphocytes (test code = Lymphocytes) 16.0 [facility] HospitalNjrbjayCXCSMJXMEU3023-44-60 14:47:00 Test Item Value Reference Range Interpretation Comments Monocytes (test code = Monocytes) 6.4 [facility] HospitalYvykkdgSFMEMYYGFZ7697-91-41 14:47:00 Test Item Value Reference Range Interpretation Comments Eosinophils (test code = Eosinophils) 1.7 [facility] HospitalXqlyphkVMAMMOPNHF5657-53-01 14:47:00 Test Item Value Reference Range Interpretation Comments Basophils (test code = Basophils) 0.7 [facility] [id number] 14:47:00 Test Item Value Reference Range Interpretation Comments Result 2 (Urine Culture) See Result Comment (test code = Result 2 (Urine Culture)) [facility] AND [id number] 14:47:00 Test Item Value Reference Range Interpretation Comments UA Color (test code = UA Color) YELLOW [facility] AND [id number] 14:47:00 Test Item Value Reference Range Interpretation Comments UA Turbidity (test code = UA CLOUDY Turbidity) [facility] AND [id number] 14:47:00 Test Item Value Reference Range Interpretation Comments UA Spec Grav (test code = UA Spec 1.017 1 1.001-1.035 Grav) [facility] AND [id number] 14:47:00 Test Item Value Reference Range Interpretation Comments UA pH (test code = UA pH) 5.5 1 5.0-8.0 [facility] AND [id number] 14:47:00 Test Item Value Reference Range Interpretation Comments UA Glucose (test code = UA Glucose) NEGATIVE [facility] AND [id number] 14:47:00 Test Item Value Reference Range Interpretation Comments UA Bili (test code = UA Bili) NEGATIVE [facility] AND [id number] 14:47:00 Test Item Value Reference Range Interpretation Comments UA Ketones (test code = UA Ketones) NEGATIVE [facility] AND [id number] 14:47:00 Test Item Value Reference Range Interpretation Comments UA Blood (test code = UA Blood) 1+ [facility] AND [id number] 14:47:00 Test Item Value Reference Range Interpretation Comments UA Protein (test code = UA Protein) 1+ [facility] [id number] 14:47:00 Test Item Value Reference Range Interpretation Comments UA Nitrite (test code = UA Nitrite) POSITIVE [facility] AND [id number] 14:47:00 Test Item Value Reference Range Interpretation Comments UA Leuk Est (test code = UA Leuk Est) 2+ [facility] [id number] 14:47:00 Test Item Value Reference Range Interpretation Comments UA WBC (test code = UA WBC) > OR = 60 [facility] AND [id number] 14:47:00 Test Item Value Reference Range Interpretation Comments UA RBC (test code = UA RBC) 0-2 [facility] AND [id number] 14:47:00 Test Item Value Reference Range Interpretation Comments UA Sq Epi (test code = UA Sq Epi) NONE SEEN [facility] AND [id number] 14:47:00 Test Item Value Reference Range Interpretation Comments UA Bacteria (test code = UA Bacteria) MANY [facility] [id number] 14:47:00 Test Item Value Reference Range Interpretation Comments UA Hyal Cast (test code = UA Hyal NONE SEEN Cast) [facility] AND [id number] 14:47:00 Test Item Value Reference Range Interpretation Comments UA Reflex (test code CULTURE INDICATED - = UA Reflex) RESULTS TO FOLLOW [facility]2020-08-06 14:47:00 Test Item Value Reference Range Interpretation Comments U Creat mg/dL (test code = U Creat 114 20-275 mg/dL) [facility] [id number] 14:47:00 Test Item Value Reference Range Interpretation Comments U Alb (test code = U Alb) 16.7 [facility] [id number] 14:47:00 Test Item Value Reference Range Interpretation Comments U Alb/Crea (test code = U Alb/Crea) 146 [facility] [id number] 14:47:00 Test Item Value Reference Range Interpretation Comments Vitamin D, 25-OH, Total (test code = 37 30-100 Vitamin D, 25-OH, Total) [facility] WorthCHEM [id number] 14:47:00 Test Item Value Reference Range Interpretation Comments U Creat mg/dL (test code = U Creat 114 20-275 mg/dL) [facility]2020-08-06 14:47:00 Test Item Value Reference Range Interpretation Comments U Prot/Creat (test code = U Prot/Creat) 430 21-161 [place] 648970-08-06 14:47:00 Test Item Value Reference Range Interpretation Comments U Prot/Creat (test code = U 0.430 1 0.021-0.161 Prot/Creat) [place] 648970-08-06 14:47:00 Test Item Value Reference Range Interpretation Comments U Protein (test code = U Protein) 49 5-24 [place] 648970-08-06 14:47:00 Test Item Value Reference Range Interpretation Comments Glucose Lvl (test code = Glucose Lvl) 103 65-99 [place] 648970-08-06 14:47:00 Test Item Value Reference Range Interpretation Comments BUN (test code = BUN) 24 7-25 [place] 648970-08-06 14:47:00 Test Item Value Reference Range Interpretation Comments Creatinine Lvl (test code = Creatinine 1.32 0.50-0.99 Lvl) [facility]2020-08-06 14:47:00 Test Item Value Reference Range Interpretation Comments eGFR NON-AFR. KENYAN (test code = 43 eGFR NON-AFR. KENYAN) [facility]2020-08-06 14:47:00 Test Item Value Reference Range Interpretation Comments eGFR (test code = eGFR 50 ) [place] 648970-08-06 14:47:00 Test Item Value Reference Range Interpretation Comments B/C Ratio (test code = B/C Ratio) 18 6-22 [place] 648970-08-06 14:47:00 Test Item Value Reference Range Interpretation Comments Sodium Lvl (test code = Sodium Lvl) 138 135-146 [place] 648970-08-06 14:47:00 Test Item Value Reference Range Interpretation Comments Potassium Lvl (test code = Potassium 4.4 3.5-5.3 Lvl) [place] 648970-08-06 14:47:00 Test Item Value Reference Range Interpretation Comments Chloride Lvl (test code = Chloride Lvl) 102 98-110 [place] 648970-08-06 14:47:00 Test Item Value Reference Range Interpretation Comments CO2 (test code = CO2) 30 20-32 [place] 648970-08-06 14:47:00 Test Item Value Reference Range Interpretation Comments Calcium Lvl (test code = Calcium Lvl) 9.4 8.6-10.4 [place] [address]-08-06 14:47:00 Test Item Value Reference Range Interpretation Comments Phosphorus (test code = Phosphorus) 4.8 2.5-4.5 [place] 648970-08-06 14:47:00 Test Item Value Reference Range Interpretation Comments Albumin Lvl (test code = Albumin Lvl) 3.9 3.6-5.1 [place] [address]-08-06 14:47:00 Test Item Value Reference Range Interpretation Comments Plt Count Estimated (test code = DECREASED Plt Count Estimated) [place] 083450-08-06 14:47:00 Test Item Value Reference Range Interpretation Comments WBC X 10x3 (test code = WBC X 10x3) 7.2 3.8-10.8 [place] [address]-08-06 14:47:00 Test Item Value Reference Range Interpretation Comments RBC X 10x6 (test code = RBC X 10x6) 3.71 3.80-5.10 [place] [address]-08-06 14:47:00 Test Item Value Reference Range Interpretation Comments Hgb (test code = Hgb) 10.7 11.7-15.5 [place] 083450-08-06 14:47:00 Test Item Value Reference Range Interpretation Comments Hct (test code = Hct) 33.9 35.0-45.0 [place] [address]-08-06 14:47:00 Test Item Value Reference Range Interpretation Comments MCV (test code = MCV) 91.4 80.0-100.0 [place] [address]-08-06 14:47:00 Test Item Value Reference Range Interpretation Comments MCH (test code = MCH) 28.8 pg 27.0-33.0 [place] [address]-08-06 14:47:00 Test Item Value Reference Range Interpretation Comments MCHC (test code = MCHC) 31.6 32.0-36.0 [place] [address]-08-06 14:47:00 Test Item Value Reference Range Interpretation Comments RDW (test code = RDW) 13.9 11.0-15.0 [facility] CenterGqpgpyqMQNPSETIIK0006-41-42 14:47:00 Test Item Value Reference Range Interpretation Comments Platelet (test code = Platelet) 110 140-400 [facility] CenterOmkgdidOVIMDNWMJR4023-13-58 14:47:00 Test Item Value Reference Range Interpretation Comments MPV (test code = MPV) 11.7 7.5-12.5 [facility] CenterYhaofjxRDAZWDMHFO6342-53-49 14:47:00 Test Item Value Reference Range Interpretation Comments Neutrophils # (test code = Neutrophils 5414 8355-0572 #) [facility] CenterAqnrbpgHICILZSUOQ6616-92-10 14:47:00 Test Item Value Reference Range Interpretation Comments Lymphocytes # (test code = Lymphocytes 1361 489-9031 #) [facility] CenterBdqxwoiIYPIYUGWIS9104-06-99 14:47:00 Test Item Value Reference Range Interpretation Comments Monocytes # (test code = Monocytes #) 461 200-950 [facility] CenterAfptzfkKDXRXNZDEI0965-31-29 14:47:00 Test Item Value Reference Range Interpretation Comments Eosinophils # (test code = Eosinophils 122 15-500 #) [facility] CenterLeuixscBOPYOVGRXQ1326-04-93 14:47:00 Test Item Value Reference Range Interpretation Comments Basophils # (test code 50 See_Comment [Aut omated message] The = Basophils #) system which generated this result tra nsmitted reference range : <=200. The reference r edy was not used to int erpret this result as normal/abnormal . [facility] CenterZqdgbvjDFFWGEGNTJ9641-99-69 14:47:00 Test Item Value Reference Range Interpretation Comments Segs (test code = Segs) 75.2 [facility] CenterIeslkpeORMBFSDBJY4347-12-53 14:47:00 Test Item Value Reference Range Interpretation Comments Lymphocytes (test code = Lymphocytes) 16.0 [place] 083450-08-06 14:47:00 Test Item Value Reference Range Interpretation Comments Monocytes (test code = Monocytes) 6.4 [facility] CenterZqppkktEZMUQBRGDB7264-85-59 14:47:00 Test Item Value Reference Range Interpretation Comments Eosinophils (test code = Eosinophils) 1.7 [facility] CenterYuraralBRZWJIWGSI8516-18-73 14:47:00 Test Item Value Reference Range Interpretation Comments Basophils (test code = Basophils) 0.7 [facility] DJSTBQX6379-75-20 14:47:00 Test Item Value Reference Range Interpretation Comments Result 2 (Urine Culture) See Result Comment (test code = Result 2 (Urine Culture)) [facility] [id number] 14:47:00 Test Item Value Reference Range Interpretation Comments UA Color (test code = UA Color) YELLOW [facility] [id number] 14:47:00 Test Item Value Reference Range Interpretation Comments UA Turbidity (test code = UA CLOUDY Turbidity) [facility] [id number] 14:47:00 Test Item Value Reference Range Interpretation Comments UA Spec Grav (test code = UA Spec 1.017 1 1.001-1.035 Grav) [facility] [id number] 14:47:00 Test Item Value Reference Range Interpretation Comments UA pH (test code = UA pH) 5.5 1 5.0-8.0 [facility] [id number] 14:47:00 Test Item Value Reference Range Interpretation Comments UA Glucose (test code = UA Glucose) [facility]GATIVE [facility] [id number] 14:47:00 Test Item Value Reference Range Interpretation Comments UA Bili (test code = UA Bili) [facility]GATIVE [facility] [id number] 14:47:00 Test Item Value Reference Range Interpretation Comments UA Ketones (test code = UA Ketones) NEGATIVE [facility] [id number] 14:47:00 Test Item Value Reference Range Interpretation Comments UA Blood (test code = UA Blood) 1+ [facility] [id number] 14:47:00 Test Item Value Reference Range Interpretation Comments UA Protein (test code = UA Protein) 1+ [facility] [id number] 14:47:00 Test Item Value Reference Range Interpretation Comments UA Nitrite (test code = UA Nitrite) POSITIVE [facility] [id number] 14:47:00 Test Item Value Reference Range Interpretation Comments UA Leuk Est (test code = UA Leuk Est) 2+ [facility] AND [id number] 14:47:00 Test Item Value Reference Range Interpretation Comments UA WBC (test code = UA WBC) > OR = 60 [facility] [id number] 14:47:00 Test Item Value Reference Range Interpretation Comments UA RBC (test code = UA RBC) 0-2 [facility] AND [id number] 14:47:00 Test Item Value Reference Range Interpretation Comments UA Sq Epi (test code = UA Sq Epi) NONE SEEN [facility] AND [id number] 14:47:00 Test Item Value Reference Range Interpretation Comments UA Bacteria (test code = UA Bacteria) MANY [facility] AND [id number] 14:47:00 Test Item Value Reference Range Interpretation Comments UA Hyal Cast (test code = UA Hyal NONE SEEN Cast) [facility] AND [id number] 14:47:00 Test Item Value Reference Range Interpretation Comments UA Reflex (test code CULTURE INDICATED - = UA Reflex) RESULTS TO FOLLOW [facility]2020-08-06 14:47:00 Test Item Value Reference Range Interpretation Comments U Creat mg/dL (test code = U Creat 114 20-275 mg/dL) [facility]2020-08-06 14:47:00 Test Item Value Reference Range Interpretation Comments U Alb (test code = U Alb) 16.7 [facility]2020-08-06 14:47:00 Test Item Value Reference Range Interpretation Comments U Alb/Crea (test code = U Alb/Crea) 146 [facility]2020-08-06 14:47:00 Test Item Value Reference Range Interpretation Comments Vitamin D, 25-OH, Total (test code = 37 30-100 Vitamin D, 25-OH, Total) [place] 648970-08-06 14:47:00 Test Item Value Reference Range Interpretation Comments U Creat mg/dL (test code = U Creat 114 20-275 mg/dL) [facility]2020-08-06 14:47:00 Test Item Value Reference Range Interpretation Comments U Prot/Creat (test code = U Prot/Creat) 430 21-161 [place] 648970-08-06 14:47:00 Test Item Value Reference Range Interpretation Comments U Prot/Creat (test code = U 0.430 1 0.021-0.161 Prot/Creat) [facility]2020-08-06 14:47:00 Test Item Value Reference Range Interpretation Comments U Protein (test code = U Protein) 49 5-24 [facility]2020-08-06 14:47:00 Test Item Value Reference Range Interpretation Comments Glucose Lvl (test code = Glucose Lvl) 103 65-99 [place] 648970-08-06 14:47:00 Test Item Value Reference Range Interpretation Comments BUN (test code = BUN) 24 7-25 [place] 648970-08-06 14:47:00 Test Item Value Reference Range Interpretation Comments Creatinine Lvl (test code = Creatinine 1.32 0.50-0.99 Lvl) [place] 648970-08-06 14:47:00 Test Item Value Reference Range Interpretation Comments eGFR NON-AFR. KENYAN (test code = 43 eGFR NON-AFR. KENYAN) [place] 648970-08-06 14:47:00 Test Item Value Reference Range Interpretation Comments eGFR (test code = eGFR 50 ) [place] 648970-08-06 14:47:00 Test Item Value Reference Range Interpretation Comments B/C Ratio (test code = B/C Ratio) 18 6-22 [place] 648970-08-06 14:47:00 Test Item Value Reference Range Interpretation Comments Sodium Lvl (test code = Sodium Lvl) 138 135-146 [facility]2020-08-06 14:47:00 Test Item Value Reference Range Interpretation Comments Potassium Lvl (test code = Potassium 4.4 3.5-5.3 Lvl) [facility]2020-08-06 14:47:00 Test Item Value Reference Range Interpretation Comments Chloride Lvl (test code = Chloride Lvl) 102 98-110 [place] 648970-08-06 14:47:00 Test Item Value Reference Range Interpretation Comments CO2 (test code = CO2) 30 20-32 [place] 648970-08-06 14:47:00 Test Item Value Reference Range Interpretation Comments Calcium Lvl (test code = Calcium Lvl) 9.4 8.6-10.4 [place] 648970-08-06 14:47:00 Test Item Value Reference Range Interpretation Comments Phosphorus (test code = Phosphorus) 4.8 2.5-4.5 [place] 648970-08-06 14:47:00 Test Item Value Reference Range Interpretation Comments Albumin Lvl (test code = Albumin Lvl) 3.9 3.6-5.1 [facility] CenterUshilhdWHKUJMMXHL5674-64-01 14:47:00 Test Item Value Reference Range Interpretation Comments Plt Count Estimated (test code = DECREASED Plt Count Estimated) [facility] CenterPiwbplsHIBBZVVXWE6088-19-84 14:47:00 Test Item Value Reference Range Interpretation Comments WBC X 10x3 (test code = WBC X 10x3) 7.2 3.8-10.8 [place] 083450-08-06 14:47:00 Test Item Value Reference Range Interpretation Comments RBC X 10x6 (test code = RBC X 10x6) 3.71 3.80-5.10 [facility] CenterMrigzbpQVTAOTCESF8980-87-92 14:47:00 Test Item Value Reference Range Interpretation Comments Hgb (test code = Hgb) 10.7 11.7-15.5 [facility] CenterYfpclknVXRIVZFFBC4630-87-47 14:47:00 Test Item Value Reference Range Interpretation Comments Hct (test code = Hct) 33.9 35.0-45.0 [facility] CenterPfgzypfNSOHFNZXGL2513-05-19 14:47:00 Test Item Value Reference Range Interpretation Comments MCV (test code = MCV) 91.4 80.0-100.0 [facility] CenterDzsxskhDMLDQJCMNZ2934-57-99 14:47:00 Test Item Value Reference Range Interpretation Comments MCH (test code = MCH) 28.8 pg 27.0-33.0 [facility] CenterGepzuhcGLPOYSDWDN0728-23-63 14:47:00 Test Item Value Reference Range Interpretation Comments MCHC (test code = MCHC) 31.6 32.0-36.0 [facility] CenterMyprpvgWFJYUGRYZH7054-82-77 14:47:00 Test Item Value Reference Range Interpretation Comments RDW (test code = RDW) 13.9 11.0-15.0 [place] 083450-08-06 14:47:00 Test Item Value Reference Range Interpretation Comments Platelet (test code = Platelet) 110 140-400 [facility] CenterXyzeinsHBYGXTTOWJ7632-80-09 14:47:00 Test Item Value Reference Range Interpretation Comments MPV (test code = MPV) 11.7 7.5-12.5 [facility] CenterRtrrcenEYCGMRWNJE8896-32-60 14:47:00 Test Item Value Reference Range Interpretation Comments Neutrophils # (test code = Neutrophils 5414 1963-4141 #) [facility] WorthRprpkxmHXUTNBVKXL6224-83-70 14:47:00 Test Item Value Reference Range Interpretation Comments Lymphocytes # (test code = Lymphocytes 4271 324-5681 #) [facility] HospitalWlpulzsNAVOFFOCQG5173-51-53 14:47:00 Test Item Value Reference Range Interpretation Comments Monocytes # (test code = Monocytes #) 461 200-950 [facility] WorthPfmmjtuTQCHJWGWBW4450-26-86 14:47:00 Test Item Value Reference Range Interpretation Comments Eosinophils # (test code = Eosinophils 122 15-500 #) [facility] HospitalNumztvgTAJHCTSNSZ7129-99-24 14:47:00 Test Item Value Reference Range Interpretation Comments Basophils # (test code 50 See_Comment [Aut omated message] The = Basophils #) system which generated this result tra nsmitted reference range : <=200. The reference r edy was not used to int erpret this result as normal/abnormal . [facility] HospitalAumgyaiFGLADKWBQS9753-13-14 14:47:00 Test Item Value Reference Range Interpretation Comments Segs (test code = Segs) 75.2 [facility] HospitalNqkjdfyAQDBEINWLT8878-07-77 14:47:00 Test Item Value Reference Range Interpretation Comments Lymphocytes (test code = Lymphocytes) 16.0 [facility] WorthApnsnnrUBFMRLWAFC8279-01-65 14:47:00 Test Item Value Reference Range Interpretation Comments Monocytes (test code = Monocytes) 6.4 [facility] HospitalYowcotuMFXVXMDNSV1539-48-62 14:47:00 Test Item Value Reference Range Interpretation Comments Eosinophils (test code = Eosinophils) 1.7 [facility] WorthRazgcteBUVVSIYZRD2080-20-81 14:47:00 Test Item Value Reference Range Interpretation Comments Basophils (test code = Basophils) 0.7 [facility] WorthREF[facility] LAB YTCJUQS2823-68-85 14:47:00 Test Item Value Reference Range Interpretation Comments Result 2 (Urine Culture) See Result Comment (test code = Result 2 (Urine Culture)) [facility] AND [id number] 14:47:00 Test Item Value Reference Range Interpretation Comments UA Color (test code = UA Color) YELLOW [facility] [id number] 14:47:00 Test Item Value Reference Range Interpretation Comments UA Turbidity (test code = UA CLOUDY Turbidity) [facility] [id number] 14:47:00 Test Item Value Reference Range Interpretation Comments UA Spec Grav (test code = UA Spec 1.017 1 1.001-1.035 Grav) [facility] AND [id number] 14:47:00 Test Item Value Reference Range Interpretation Comments UA pH (test code = UA pH) 5.5 1 5.0-8.0 [facility] AND [id number] 14:47:00 Test Item Value Reference Range Interpretation Comments UA Glucose (test code = UA Glucose) NEGATIVE [facility] AND [id number] 14:47:00 Test Item Value Reference Range Interpretation Comments UA Bili (test code = UA Bili) NEGATIVE [facility] AND [id number] 14:47:00 Test Item Value Reference Range Interpretation Comments UA Ketones (test code = UA Ketones) NEGATIVE [facility] AND [id number] 14:47:00 Test Item Value Reference Range Interpretation Comments UA Blood (test code = UA Blood) 1+ [facility] AND [id number] 14:47:00 Test Item Value Reference Range Interpretation Comments UA Protein (test code = UA Protein) 1+ [place] [facility] [id number] 14:47:00 Test Item Value Reference Range Interpretation Comments UA Nitrite (test code = UA Nitrite) POSITIVE [facility] AND [id number] 14:47:00 Test Item Value Reference Range Interpretation Comments UA Leuk Est (test code = UA Leuk Est) 2+ [facility] AND [id number] 14:47:00 Test Item Value Reference Range Interpretation Comments UA WBC (test code = UA WBC) > OR = 60 [facility] AND [id number] 14:47:00 Test Item Value Reference Range Interpretation Comments UA RBC (test code = UA RBC) 0-2 [facility] [id number] 14:47:00 Test Item Value Reference Range Interpretation Comments UA Sq Epi (test code = UA Sq Epi) NONE SEEN [facility] AND [id number] 14:47:00 Test Item Value Reference Range Interpretation Comments UA Bacteria (test code = UA Bacteria) MANY [facility] AND [id number] 14:47:00 Test Item Value Reference Range Interpretation Comments UA Hyal Cast (test code = UA Hyal NONE SEEN Cast) [facility] AND [id number] 14:47:00 Test Item Value Reference Range Interpretation Comments UA Reflex (test code CULTURE INDICATED - = UA Reflex) RESULTS TO FOLLOW [facility]2020-08-06 14:47:00 Test Item Value Reference Range Interpretation Comments U Creat mg/dL (test code = U Creat 114 20-275 mg/dL) [facility]2020-08-06 14:47:00 Test Item Value Reference Range Interpretation Comments U Alb (test code = U Alb) 16.7 [place] 649360-08-06 14:47:00 Test Item Value Reference Range Interpretation Comments U Alb/Crea (test code = U Alb/Crea) 146 [facility]2020-08-06 14:47:00 Test Item Value Reference Range Interpretation Comments Vitamin D, 25-OH, Total (test code = 37 30-100 Vitamin D, 25-OH, Total) [place] 648970-08-06 14:47:00 Test Item Value Reference Range Interpretation Comments U Creat mg/dL (test code = U Creat 114 20-275 mg/dL) [facility]2020-08-06 14:47:00 Test Item Value Reference Range Interpretation Comments U Prot/Creat (test code = U Prot/Creat) 430 21-161 [facility]2020-08-06 14:47:00 Test Item Value Reference Range Interpretation Comments U Prot/Creat (test code = U 0.430 1 0.021-0.161 Prot/Creat) [facility]2020-08-06 14:47:00 Test Item Value Reference Range Interpretation Comments U Protein (test code = U Protein) 49 5-24 [place] 648970-08-06 14:47:00 Test Item Value Reference Range Interpretation Comments Glucose Lvl (test code = Glucose Lvl) 103 65-99 [place] 648970-08-06 14:47:00 Test Item Value Reference Range Interpretation Comments BUN (test code = BUN) 24 7-25 [place] 648970-08-06 14:47:00 Test Item Value Reference Range Interpretation Comments Creatinine Lvl (test code = Creatinine 1.32 0.50-0.99 Lvl) [place] 648970-08-06 14:47:00 Test Item Value Reference Range Interpretation Comments eGFR NON-AFR. KENYAN (test code = 43 eGFR NON-AFR. KENYAN) [place] 648970-08-06 14:47:00 Test Item Value Reference Range Interpretation Comments eGFR (test code = eGFR 50 ) [place] 648970-08-06 14:47:00 Test Item Value Reference Range Interpretation Comments B/C Ratio (test code = B/C Ratio) 18 6-22 [place] 648970-08-06 14:47:00 Test Item Value Reference Range Interpretation Comments Sodium Lvl (test code = Sodium Lvl) 138 135-146 [place] 648970-08-06 14:47:00 Test Item Value Reference Range Interpretation Comments Potassium Lvl (test code = Potassium 4.4 3.5-5.3 Lvl) [facility]2020-08-06 14:47:00 Test Item Value Reference Range Interpretation Comments Chloride Lvl (test code = Chloride Lvl) 102 98-110 [place] 648970-08-06 14:47:00 Test Item Value Reference Range Interpretation Comments CO2 (test code = CO2) 30 20-32 [place] 648970-08-06 14:47:00 Test Item Value Reference Range Interpretation Comments Calcium Lvl (test code = Calcium Lvl) 9.4 8.6-10.4 [place] 648970-08-06 14:47:00 Test Item Value Reference Range Interpretation Comments Phosphorus (test code = Phosphorus) 4.8 2.5-4.5 [place] 648970-08-06 14:47:00 Test Item Value Reference Range Interpretation Comments Albumin Lvl (test code = Albumin Lvl) 3.9 3.6-5.1 [place] 083450-08-06 14:47:00 Test Item Value Reference Range Interpretation Comments Plt Count Estimated (test code = DECREASED Plt Count Estimated) [facility]InmafguCDEWPAVOHB4692-41-21 14:47:00 Test Item Value Reference Range Interpretation Comments WBC X 10x3 (test code = WBC X 10x3) 7.2 3.8-10.8 [place] 083450-08-06 14:47:00 Test Item Value Reference Range Interpretation Comments RBC X 10x6 (test code = RBC X 10x6) 3.71 3.80-5.10 [facility] CenterTmilhfnCRGSUZYVGV1649-14-28 14:47:00 Test Item Value Reference Range Interpretation Comments Hgb (test code = Hgb) 10.7 11.7-15.5 [facility] CenterLxupwtsUMTJLRAUCF5274-70-38 14:47:00 Test Item Value Reference Range Interpretation Comments Hct (test code = Hct) 33.9 35.0-45.0 [facility] CenterWpvlzgvMEEBOJZFPU2974-82-13 14:47:00 Test Item Value Reference Range Interpretation Comments MCV (test code = MCV) 91.4 80.0-100.0 [facility] CenterMiatsaoHASDYXWXQM5930-01-25 14:47:00 Test Item Value Reference Range Interpretation Comments MCH (test code = MCH) 28.8 pg 27.0-33.0 [facility] CenterTixnxmjFYPAEOIMOR6452-63-07 14:47:00 Test Item Value Reference Range Interpretation Comments MCHC (test code = MCHC) 31.6 32.0-36.0 [facility] CenterKtqszcuXMCADHLVIU9970-43-52 14:47:00 Test Item Value Reference Range Interpretation Comments RDW (test code = RDW) 13.9 11.0-15.0 [facility] CenterCmissnuGPYRCVGIFC9120-35-46 14:47:00 Test Item Value Reference Range Interpretation Comments Platelet (test code = Platelet) 110 140-400 [facility] CenterTgwriruYIVSAXNIKE1970-36-63 14:47:00 Test Item Value Reference Range Interpretation Comments MPV (test code = MPV) 11.7 7.5-12.5 [facility] CenterFcjyvlyLEVJOCBHRG4282-71-99 14:47:00 Test Item Value Reference Range Interpretation Comments Neutrophils # (test code = Neutrophils 5414 4933-6733 #) [facility] CenterAkkmaldJBAHOVLEYH6017-41-03 14:47:00 Test Item Value Reference Range Interpretation Comments Lymphocytes # (test code = Lymphocytes 8928 276-0273 #) [facility] CenterKrctvxmVNWGTYIVDP4274-10-12 14:47:00 Test Item Value Reference Range Interpretation Comments Monocytes # (test code = Monocytes #) 461 200-950 [facility] CenterWyakskkPSIUTIQRLK3450-43-58 14:47:00 Test Item Value Reference Range Interpretation Comments Eosinophils # (test code = Eosinophils 122 15-500 #) [facility] CenterBlicfcuMQHEEERFRY6784-14-29 14:47:00 Test Item Value Reference Range Interpretation Comments Basophils # (test code 50 See_Comment [Aut omated message] The = Basophils #) system which generated this result tra nsmitted reference range : <=200. The reference r edy was not used to int erpret this result as normal/abnormal . [facility]ihgqjvBNVAVJCJRO2130-17-39 14:47:00 Test Item Value Reference Range Interpretation Comments Segs (test code = Segs) 75.2 [facility] HospitalTqigoihXJVKNSZKLP2817-56-02 14:47:00 Test Item Value Reference Range Interpretation Comments Lymphocytes (test code = Lymphocytes) 16.0 [facility] HospitalQzayhfgHVIDADXMEQ3275-53-20 14:47:00 Test Item Value Reference Range Interpretation Comments Monocytes (test code = Monocytes) 6.4 [facility] HospitalOawrjrlSRTPTWIIPT9169-82-14 14:47:00 Test Item Value Reference Range Interpretation Comments Eosinophils (test code = Eosinophils) 1.7 [facility] HospitalNqvshccWOINZRYXFK4288-23-52 14:47:00 Test Item Value Reference Range Interpretation Comments Basophils (test code = Basophils) 0.7 [facility] [id number] 14:47:00 Test Item Value Reference Range Interpretation Comments Result 2 (Urine Culture) See Result Comment (test code = Result 2 (Urine Culture)) [facility] AND [id number] 14:47:00 Test Item Value Reference Range Interpretation Comments UA Color (test code = UA Color) YELLOW [facility] AND [id number] 14:47:00 Test Item Value Reference Range Interpretation Comments UA Turbidity (test code = UA CLOUDY Turbidity) [facility] AND [id number] 14:47:00 Test Item Value Reference Range Interpretation Comments UA Spec Grav (test code = UA Spec 1.017 1 1.001-1.035 Grav) [facility] AND [id number] 14:47:00 Test Item Value Reference Range Interpretation Comments UA pH (test code = UA pH) 5.5 1 5.0-8.0 [facility] AND [id number] 14:47:00 Test Item Value Reference Range Interpretation Comments UA Glucose (test code = UA Glucose) NEGATIVE [facility] AND [id number] 14:47:00 Test Item Value Reference Range Interpretation Comments UA Bili (test code = UA Bili) [facility] [id number] 14:47:00 Test Item Value Reference Range Interpretation Comments UA Ketones (test code = UA Ketones) [facility]GATIVE [facility] [id number] 14:47:00 Test Item Value Reference Range Interpretation Comments UA Blood (test code = UA Blood) 1+ [facility] [id number] 14:47:00 Test Item Value Reference Range Interpretation Comments UA Protein (test code = UA Protein) 1+ [facility] [id number] 14:47:00 Test Item Value Reference Range Interpretation Comments UA Nitrite (test code = UA Nitrite) POSITIVE [facility] [id number] 14:47:00 Test Item Value Reference Range Interpretation Comments UA Leuk Est (test code = UA Leuk Est) 2+ [facility] [id number] 14:47:00 Test Item Value Reference Range Interpretation Comments UA WBC (test code = UA WBC) > OR = 60 [facility] [id number] 14:47:00 Test Item Value Reference Range Interpretation Comments UA RBC (test code = UA RBC) 0-2 [facility] [id number] 14:47:00 Test Item Value Reference Range Interpretation Comments UA Sq Epi (test code = UA Sq Epi) NONE [facility]EN [facility] [id number] 14:47:00 Test Item Value Reference Range Interpretation Comments UA Bacteria (test code = UA Bacteria) MANY [facility] [id number] 14:47:00 Test Item Value Reference Range Interpretation Comments UA Hyal Cast (test code = UA Hyal NONE SEEN Cast) [facility] [id number] 14:47:00 Test Item Value Reference Range Interpretation Comments UA Reflex (test code CULTURE INDICATED - = UA Reflex) [facility] [id number] 14:47:00 Test Item Value Reference Range Interpretation Comments U Creat mg/dL (test code = U Creat 114 20-275 mg/dL) [facility] [id number] 14:47:00 Test Item Value Reference Range Interpretation Comments U Alb (test code = U Alb) 16.7 [facility] [id number] 14:47:00 Test Item Value Reference Range Interpretation Comments U Alb/Crea (test code = U Alb/Crea) 146 [place] 648970-08-06 14:47:00 Test Item Value Reference Range Interpretation Comments Vitamin D, 25-OH, Total (test code = 37 30-100 Vitamin D, 25-OH, Total) [place] 648970-08-06 14:47:00 Test Item Value Reference Range Interpretation Comments U Creat mg/dL (test code = U Creat 114 20-275 mg/dL) [place] 648970-08-06 14:47:00 Test Item Value Reference Range Interpretation Comments U Prot/Creat (test code = U Prot/Creat) 430 21-161 [place] 648970-08-06 14:47:00 Test Item Value Reference Range Interpretation Comments U Prot/Creat (test code = U 0.430 1 0.021-0.161 Prot/Creat) [facility]2020-08-06 14:47:00 Test Item Value Reference Range Interpretation Comments U Protein (test code = U Protein) 49 5-24 [place] 648970-08-06 14:47:00 Test Item Value Reference Range Interpretation Comments Glucose Lvl (test code = Glucose Lvl) 103 65-99 [facility]2020-08-06 14:47:00 Test Item Value Reference Range Interpretation Comments BUN (test code = BUN) 24 7-25 [facility]2020-08-06 14:47:00 Test Item Value Reference Range Interpretation Comments Creatinine Lvl (test code = Creatinine 1.32 0.50-0.99 Lvl) [place] 648970-08-06 14:47:00 Test Item Value Reference Range Interpretation Comments eGFR NON-AFR. KENYAN (test code = 43 eGFR NON-AFR. KENYAN) [place] 648970-08-06 14:47:00 Test Item Value Reference Range Interpretation Comments eGFR (test code = eGFR 50 ) [place] [address]-08-06 14:47:00 Test Item Value Reference Range Interpretation Comments B/C Ratio (test code = B/C Ratio) 18 6-22 [place] 648970-08-06 14:47:00 Test Item Value Reference Range Interpretation Comments Sodium Lvl (test code = Sodium Lvl) 138 135-146 [place] 648970-08-06 14:47:00 Test Item Value Reference Range Interpretation Comments Potassium Lvl (test code = Potassium 4.4 3.5-5.3 Lvl) [place] [address]-08-06 14:47:00 Test Item Value Reference Range Interpretation Comments Chloride Lvl (test code = Chloride Lvl) 102 98-110 [place] 648970-08-06 14:47:00 Test Item Value Reference Range Interpretation Comments CO2 (test code = CO2) 30 20-32 [place] [address]-08-06 14:47:00 Test Item Value Reference Range Interpretation Comments Calcium Lvl (test code = Calcium Lvl) 9.4 8.6-10.4 [place] 648970-08-06 14:47:00 Test Item Value Reference Range Interpretation Comments Phosphorus (test code = Phosphorus) 4.8 2.5-4.5 [place] 648970-08-06 14:47:00 Test Item Value Reference Range Interpretation Comments Albumin Lvl (test code = Albumin Lvl) 3.9 3.6-5.1 [place] [address]-08-06 14:47:00 Test Item Value Reference Range Interpretation Comments Plt Count Estimated (test code = DECREASED Plt Count Estimated) [place] [address]-08-06 14:47:00 Test Item Value Reference Range Interpretation Comments WBC X 10x3 (test code = WBC X 10x3) 7.2 3.8-10.8 [place] [address]-08-06 14:47:00 Test Item Value Reference Range Interpretation Comments RBC X 10x6 (test code = RBC X 10x6) 3.71 3.80-5.10 [place] [address]-08-06 14:47:00 Test Item Value Reference Range Interpretation Comments Hgb (test code = Hgb) 10.7 11.7-15.5 [place] [address]-08-06 14:47:00 Test Item Value Reference Range Interpretation Comments Hct (test code = Hct) 33.9 35.0-45.0 [place] [address]-08-06 14:47:00 Test Item Value Reference Range Interpretation Comments MCV (test code = MCV) 91.4 80.0-100.0 [facility] CenterEfprsfyWDKMZLFVZX7519-63-90 14:47:00 Test Item Value Reference Range Interpretation Comments MCH (test code = MCH) 28.8 pg 27.0-33.0 [facility] CenterStoeqgbFXXCNYYGZN0621-56-97 14:47:00 Test Item Value Reference Range Interpretation Comments MCHC (test code = MCHC) 31.6 32.0-36.0 [facility] CenterRvcpwahNHENNOHKVL0696-67-25 14:47:00 Test Item Value Reference Range Interpretation Comments RDW (test code = RDW) 13.9 11.0-15.0 [place] 083450-08-06 14:47:00 Test Item Value Reference Range Interpretation Comments Platelet (test code = Platelet) 110 140-400 [facility] CenterKqetapgVMKDSVHHWK6704-41-16 14:47:00 Test Item Value Reference Range Interpretation Comments MPV (test code = MPV) 11.7 7.5-12.5 [facility] CenterWzcabbmSUGPEVMHIF4603-17-53 14:47:00 Test Item Value Reference Range Interpretation Comments Neutrophils # (test code = Neutrophils 5414 6133-2255 #) [facility] CenterFufgdsfPSVDFWGXOT5214-65-62 14:47:00 Test Item Value Reference Range Interpretation Comments Lymphocytes # (test code = Lymphocytes 2145 054-8703 #) [facility] CenterFvqiczsIXCNJDJTFM2439-62-94 14:47:00 Test Item Value Reference Range Interpretation Comments Monocytes # (test code = Monocytes #) 461 200-950 [facility] CenterXgyqcvmDIPGKWDUAU5383-08-70 14:47:00 Test Item Value Reference Range Interpretation Comments Eosinophils # (test code = Eosinophils 122 15-500 #) [facility] CenterBkehpkmQSDDOBLXML8770-41-10 14:47:00 Test Item Value Reference Range Interpretation Comments Basophils # (test code 50 See_Comment [Aut omated message] The = Basophils #) system which generated this result tra nsmitted reference range : <=200. The reference r edy was not used to int erpret this result as normal/abnormal . [facility] CenterJwcuinmMGGKHEPLHE6931-53-46 14:47:00 Test Item Value Reference Range Interpretation Comments Segs (test code = Segs) 75.2 [facility] CenterQzeullrJDKJMHGQSB4171-94-45 14:47:00 Test Item Value Reference Range Interpretation Comments Lymphocytes (test code = Lymphocytes) 16.0 [facility] WorthNskzgbvFNGBBDCWZC1954-44-26 14:47:00 Test Item Value Reference Range Interpretation Comments Monocytes (test code = Monocytes) 6.4 [facility] WorthXvmvmmcGVVDDCUETA2630-84-99 14:47:00 Test Item Value Reference Range Interpretation Comments Eosinophils (test code = Eosinophils) 1.7 [facility] WorthRbfxdqyBXYKHHLBGW3413-20-62 14:47:00 Test Item Value Reference Range Interpretation Comments Basophils (test code = Basophils) 0.7 [facility]annREF[facility] LAB [id number] 14:47:00 Test Item Value Reference Range Interpretation Comments Result 2 (Urine Culture) See Result Comment (test code = Result 2 (Urine Culture)) [facility] AND [id number] 14:47:00 Test Item Value Reference Range Interpretation Comments UA Color (test code = UA Color) YELLOW [facility] AND [id number] 14:47:00 Test Item Value Reference Range Interpretation Comments UA Turbidity (test code = UA CLOUDY Turbidity) [facility] AND [id number] 14:47:00 Test Item Value Reference Range Interpretation Comments UA Spec Grav (test code = UA Spec 1.017 1 1.001-1.035 Grav) [facility] AND [id number] 14:47:00 Test Item Value Reference Range Interpretation Comments UA pH (test code = UA pH) 5.5 1 5.0-8.0 [facility] [id number] 14:47:00 Test Item Value Reference Range Interpretation Comments UA Glucose (test code = UA Glucose) NEGATIVE [facility] [id number] 14:47:00 Test Item Value Reference Range Interpretation Comments UA Bili (test code = UA Bili) NEGATIVE [facility] AND [id number] 14:47:00 Test Item Value Reference Range Interpretation Comments UA Ketones (test code = UA Ketones) NEGATIVE [facility] AND [id number] 14:47:00 Test Item Value Reference Range Interpretation Comments UA Blood (test code = UA Blood) 1+ [facility] [id number] 14:47:00 Test Item Value Reference Range Interpretation Comments UA Protein (test code = UA Protein) 1+ [facility] AND [id number] 14:47:00 Test Item Value Reference Range Interpretation Comments UA Nitrite (test code = UA Nitrite) POSITIVE [facility] [id number] 14:47:00 Test Item Value Reference Range Interpretation Comments UA Leuk Est (test code = UA Leuk Est) 2+ [facility] AND [id number] 14:47:00 Test Item Value Reference Range Interpretation Comments UA WBC (test code = UA WBC) > OR = 60 [facility] [id number] 14:47:00 Test Item Value Reference Range Interpretation Comments UA RBC (test code = UA RBC) 0-2 [facility] [id number] 14:47:00 Test Item Value Reference Range Interpretation Comments UA Sq Epi (test code = UA Sq Epi) NONE SEEN [facility] [id number] 14:47:00 Test Item Value Reference Range Interpretation Comments UA Bacteria (test code = UA Bacteria) MANY [facility] AND [id number] 14:47:00 Test Item Value Reference Range Interpretation Comments UA Hyal Cast (test code = UA Hyal NONE SEEN Cast) [facility] AND [id number] 14:47:00 Test Item Value Reference Range Interpretation Comments UA Reflex (test code CULTURE INDICATED - = UA Reflex) RESULTS TO FOLLOW [facility]2020-08-06 14:47:00 Test Item Value Reference Range Interpretation Comments U Creat mg/dL (test code = U Creat 114 20-275 mg/dL) [facility]2020-08-06 14:47:00 Test Item Value Reference Range Interpretation Comments U Alb (test code = U Alb) 16.7 [facility]2020-08-06 14:47:00 Test Item Value Reference Range Interpretation Comments U Alb/Crea (test code = U Alb/Crea) 146 [facility] [id number] 14:47:00 Test Item Value Reference Range Interpretation Comments Vitamin D, 25-OH, Total (test code = 37 30-100 Vitamin D, 25-OH, Total) [facility] [id number] 14:47:00 Test Item Value Reference Range Interpretation Comments U Creat mg/dL (test code = U Creat 114 20-275 mg/dL) [facility]2020-08-06 14:47:00 Test Item Value Reference Range Interpretation Comments U Prot/Creat (test code = U Prot/Creat) 430 21-161 [place] 648970-08-06 14:47:00 Test Item Value Reference Range Interpretation Comments U Prot/Creat (test code = U 0.430 1 0.021-0.161 Prot/Creat) [place] 648970-08-06 14:47:00 Test Item Value Reference Range Interpretation Comments U Protein (test code = U Protein) 49 5-24 [place] 648970-08-06 14:47:00 Test Item Value Reference Range Interpretation Comments Glucose Lvl (test code = Glucose Lvl) 103 65-99 [place] 648970-08-06 14:47:00 Test Item Value Reference Range Interpretation Comments BUN (test code = BUN) 24 7-25 [place] 648970-08-06 14:47:00 Test Item Value Reference Range Interpretation Comments Creatinine Lvl (test code = Creatinine 1.32 0.50-0.99 Lvl) [facility]2020-08-06 14:47:00 Test Item Value Reference Range Interpretation Comments eGFR NON-AFR. KENYAN (test code = 43 eGFR NON-AFR. KENYAN) [facility]2020-08-06 14:47:00 Test Item Value Reference Range Interpretation Comments eGFR (test code = eGFR 50 ) [place] [address]-08-06 14:47:00 Test Item Value Reference Range Interpretation Comments B/C Ratio (test code = B/C Ratio) 18 6-22 [place] 648970-08-06 14:47:00 Test Item Value Reference Range Interpretation Comments Sodium Lvl (test code = Sodium Lvl) 138 135-146 [place] 648970-08-06 14:47:00 Test Item Value Reference Range Interpretation Comments Potassium Lvl (test code = Potassium 4.4 3.5-5.3 Lvl) [place] 648970-08-06 14:47:00 Test Item Value Reference Range Interpretation Comments Chloride Lvl (test code = Chloride Lvl) 102 98-110 [place] 648970-08-06 14:47:00 Test Item Value Reference Range Interpretation Comments CO2 (test code = CO2) 30 20-32 [facility]2020-08-06 14:47:00 Test Item Value Reference Range Interpretation Comments Calcium Lvl (test code = Calcium Lvl) 9.4 8.6-10.4 [facility]2020-08-06 14:47:00 Test Item Value Reference Range Interpretation Comments Phosphorus (test code = Phosphorus) 4.8 2.5-4.5 [place] 648970-08-06 14:47:00 Test Item Value Reference Range Interpretation Comments Albumin Lvl (test code = Albumin Lvl) 3.9 3.6-5.1 [place] 083450-08-06 14:47:00 Test Item Value Reference Range Interpretation Comments Plt Count Estimated (test code = DECREASED Plt Count Estimated) [place] 083450-08-06 14:47:00 Test Item Value Reference Range Interpretation Comments WBC X 10x3 (test code = WBC X 10x3) 7.2 3.8-10.8 [place] [address]74-08-06 14:47:00 Test Item Value Reference Range Interpretation Comments RBC X 10x6 (test code = RBC X 10x6) 3.71 3.80-5.10 [place] [address]1074-08-06 14:47:00 Test Item Value Reference Range Interpretation Comments Hgb (test code = Hgb) 10.7 11.7-15.5 [place] [address]74-08-06 14:47:00 Test Item Value Reference Range Interpretation Comments Hct (test code = Hct) 33.9 35.0-45.0 [place] [address]74-08-06 14:47:00 Test Item Value Reference Range Interpretation Comments MCV (test code = MCV) 91.4 80.0-100.0 [place] [address]74-08-06 14:47:00 Test Item Value Reference Range Interpretation Comments MCH (test code = MCH) 28.8 pg 27.0-33.0 [place] [address]74-08-06 14:47:00 Test Item Value Reference Range Interpretation Comments MCHC (test code = MCHC) 31.6 32.0-36.0 [place] [address]74-08-06 14:47:00 Test Item Value Reference Range Interpretation Comments RDW (test code = RDW) 13.9 11.0-15.0 [id number] 14:47:00 Test Item Value Reference Range Interpretation Comments Platelet (test code = Platelet) 110 140-400 [facility] HospitalGohdrmuTOYXLLGFJU3008-39-59 14:47:00 Test Item Value Reference Range Interpretation Comments MPV (test code = MPV) 11.7 7.5-12.5 [facility]yXNIRXYEZQI3049-40-95 14:47:00 Test Item Value Reference Range Interpretation Comments Neutrophils # (test code = Neutrophils 5414 1345-0622 #) [facility] HospitalKgoglayUOUXGIXNTU5866-53-84 14:47:00 Test Item Value Reference Range Interpretation Comments Lymphocytes # (test code = Lymphocytes 3745 484-6642 #) [facility] HospitalOuhqfhsTHXCLCPBZC3880-19-73 14:47:00 Test Item Value Reference Range Interpretation Comments Monocytes # (test code = Monocytes #) 461 200-950 [facility] HospitalRzkjydzIOTCFCESNT0346-92-14 14:47:00 Test Item Value Reference Range Interpretation Comments Eosinophils # (test code = Eosinophils 122 15-500 #) [facility] HospitalGxdbozrIANYWZZQMQ4061-69-26 14:47:00 Test Item Value Reference Range Interpretation Comments Basophils # (test code 50 See_Comment [Aut omated message] The = Basophils #) system which generated this result tra nsmitted reference range : <=200. The reference r edy was not used to int erpret this result as normal/abnormal . [facility]DsqtrtnKQSSITJXST7352-47-29 14:47:00 Test Item Value Reference Range Interpretation Comments Segs (test code = Segs) 75.2 [facility] CenterQrssadmNZBHGOZSCS8464-27-83 14:47:00 Test Item Value Reference Range Interpretation Comments Lymphocytes (test code = Lymphocytes) 16.0 [facility] HospitalCiwxjvxTCKFHPHPFJ4248-69-65 14:47:00 Test Item Value Reference Range Interpretation Comments Monocytes (test code = Monocytes) 6.4 [facility] CenterVnrouczUNUWPZPZOQ9707-99-77 14:47:00 Test Item Value Reference Range Interpretation Comments Eosinophils (test code = Eosinophils) 1.7 [facility] HospitalFchhvrmYQBHJEURXI4673-76-53 14:47:00 Test Item Value Reference Range Interpretation Comments Basophils (test code = Basophils) 0.7 [facility] [id number] 14:47:00 Test Item Value Reference Range Interpretation Comments Result 2 (Urine Culture) See Result Comment (test code = Result 2 (Urine Culture)) [facility] AND [id number] 14:47:00 Test Item Value Reference Range Interpretation Comments UA Color (test code = UA Color) YELLOW [facility] AND [id number] 14:47:00 Test Item Value Reference Range Interpretation Comments UA Turbidity (test code = UA CLOUDY Turbidity) [facility] AND [id number] 14:47:00 Test Item Value Reference Range Interpretation Comments UA Spec Grav (test code = UA Spec 1.017 1 1.001-1.035 Grav) [facility] AND [id number] 14:47:00 Test Item Value Reference Range Interpretation Comments UA pH (test code = UA pH) 5.5 1 5.0-8.0 [facility] AND [id number] 14:47:00 Test Item Value Reference Range Interpretation Comments UA Glucose (test code = UA Glucose) NEGATIVE [facility] AND [id number] 14:47:00 Test Item Value Reference Range Interpretation Comments UA Bili (test code = UA Bili) NEGATIVE [facility] AND [id number] 14:47:00 Test Item Value Reference Range Interpretation Comments UA Ketones (test code = UA Ketones) NEGATIVE [facility] AND [id number] 14:47:00 Test Item Value Reference Range Interpretation Comments UA Blood (test code = UA Blood) 1+ [facility] AND [id number] 14:47:00 Test Item Value Reference Range Interpretation Comments UA Protein (test code = UA Protein) 1+ [facility] AND [id number] 14:47:00 Test Item Value Reference Range Interpretation Comments UA Nitrite (test code = UA Nitrite) POSITIVE [facility] AND [id number] 14:47:00 Test Item Value Reference Range Interpretation Comments UA Leuk Est (test code = UA Leuk Est) 2+ [facility] AND [id number] 14:47:00 Test Item Value Reference Range Interpretation Comments UA WBC (test code = UA WBC) > OR = 60 [facility] AND [id number] 14:47:00 Test Item Value Reference Range Interpretation Comments UA RBC (test code = UA RBC) 0-2 [facility] [id number] 14:47:00 Test Item Value Reference Range Interpretation Comments UA Sq Epi (test code = UA Sq Epi) [facility] [id number] 14:47:00 Test Item Value Reference Range Interpretation Comments UA Bacteria (test code = UA Bacteria) [facility]ANY [facility] [id number] 14:47:00 Test Item Value Reference Range Interpretation Comments UA Hyal Cast (test code = UA Hyal NONE SEEN Cast) [facility] [id number] 14:47:00 Test Item Value Reference Range Interpretation Comments UA Reflex (test code CULTURE INDICATED - = UA Reflex) RESULTS TO FOLLOW [facility] [id number] 14:47:00 Test Item Value Reference Range Interpretation Comments U Creat mg/dL (test code = U Creat 114 20-275 mg/dL) [facility] [id number] 14:47:00 Test Item Value Reference Range Interpretation Comments U Alb (test code = U Alb) 16.7 [facility] [id number] 14:47:00 Test Item Value Reference Range Interpretation Comments U Alb/Crea (test code = U Alb/Crea) 146 [facility] PROTEIN ELECTROPHORESIS-24HR [id number] 08:01:00 Test Item Value Reference Range Interpretation Comments CREATININE, 24 HOUR 1.45 g/24 h 0.50-2.15 URINE (test code = 15114014) PROTEIN/CREATININE 292 mg/g creat < OR = 114 H RATION (test code = 73551463) PROTEIN, TOTAL 24 HR UR 424 mg/24 h <150 H TEST PERFORMED (test code = 51800615) AT:[facility] [address] [place] [address], [place] [address]HVNGYNIECY BOYCE MD ALBUMIN (test code = 35 % 38851282) BUATW-1-QEUOWJNOP (test 10 % code = 59232448) ZDOWB-2-YPGQYIOWH (test 12 % code = 90467570) BETA GLOBULINS (test 25 % code = 10838364) GAMMA GLOBULINS (test 18 % code = 51244504) INTERPRETATION (test Albumin and code = 36080750) various dann bulin fractions detected on proteinelectrop ho resis. No abnormal protei n bands (Bence-Jonespro te inuria) detected.TEST PERFORMED AT:[facility] [address] [facility].[place] [address]MBIZKNIECY BOYCE MD NEUTROPHIL CYTOPLASMIC [id number] 05:19:00 Test Item Value Reference Range Interpretation Comments ANCA SCREEN (test NEGATIVE NEGATIVE ANCA Scree n includes code = 44306168) evaluation for p-ANCA, c-ANCA andatypi alexandre p-ANCA. [...] ofpat ients with Crohn's disease .TEST PERFORMED AT:[facility] [id number] [place] [address]VINHPOSCAR EISENBERG MD,PHD ,MICHI COMPREHENSIVE METABOLIC [id number] 06:25:00 Test Item Value Reference Range Interpretation [...] MORPH (test code = RBCMOR) NORMAL URINE [id number] 09:53:00 Test Item Value Reference Range Interpretation [...] = VD) 36.0 ng/mL 30.0-100.0 SERUM PROTEIN [id number] 06:20:00 Test Item Value Reference Range Interpretation Comments PROTEIN TOTAL (test 5.7 g/dL 6.1-8.1 L TEST PER FORMED AT:QUEST code = 54715869) DIAGNOSTICS -[id number] [facility] [address]PJKYVNIECY BOYCE MD ALBUMIN (test code = 3.2 g/dL 3.8-4.8 L 46058271) UPARX-1-WBALVARJG 0.4 g/dL 0.2-0.3 H (test code = 63785472) HIEZC-5-XGZAOXHXN 0.8 g/dL 0.5-0.9 (test code = 52171546) BETA 1 GLOBULIN (test 0.5 g/dL 0.4-0.6 code = 42031262) BETA 2 GLOBULIN (test 0.2 g/dL 0.2-0.5 code = 94484983) GAMMA GLOBULINS (test 0.6 g/dL 0.8-1.7 L code = 95197385) INTERPRETATION (test Pattern consistent with code = 78267003) an acute ph ase reactionConsist ent with hypogammaglobul inemia. Serum free ligh tchains or urine immuno fixation should be consi dered ifplasma cell d yscrasias are a possible clinicaldiagnos is.TEST PERFORMED AT:[facility] [id number] [facility] [address]YGWAXNIECY BOYCE MD [id number] 06:13:00 Test Item Value Reference Range Interpretation Comments MAGNESIUM (test code = 48A) 1.7 mg/dL 1.8-2.4 L COMPREHENSIVE METABOLIC [id number] 06:13:00 Test Item Value Reference Range Interpretation [...] (test code = RBCMOR) NORMAL COMPREHENSIVE METABOLIC [id number] 05:30:00 Test Item Value Reference Range Interpretation [...] (test code = RBCMOR) NORMAL URINALYSIS WITH [id number] 06:44:00 Test Item Value Reference Range Interpretation [...] code = USPERM) /HPF NONE COMPREHENSIVE METABOLIC [id number] 05:24:00 Test Item Value Reference Range Interpretation [...] = RBCMOR) NORMAL U/S KIDNEY (RENAL)2019-06-06 23:20:42LOCATION: [id number]: 63-year-old female who presents with acute nontraumatic [...] jet was observed onthe color flow study.TROPONIN [id number] 07:14:00 Test Item Value Reference Range Interpretation Comments TROPONIN I (test code = A84) <0.015 ng/mL 0.000-0.045 COMPREHENSIVE METABOLIC [id number] 05:28:00 Test Item Value Reference Range Interpretation [...] (test code = RBCMOR) NORMAL COMPREHENSIVE METABOLIC [id number] 04:58:00 Test Item Value Reference Range Interpretation [...] (test code = MDIFF) NO NO CARDIAC [id number] 23:10:00 Test Item Value Reference Range Interpretation Comments TROPONIN I (test code = A84) <0.015 ng/mL 0.000-0.045 U/S VENOUS DOPPLER BALDO LOW [id number] 22:23:14LOCATION: [id number]: 63-year-old female who presents with bilateral leg [...] thrombosis in either of thispatient's legs. CARDIAC [id number] 16:50:00 Test Item Value Reference Range Interpretation Comments TROPONIN I (test code = A84) <0.015 ng/mL 0.000-0.045 BRAIN NATRIURETIC [id number] 14:39:00 Test Item Value Reference Range Interpretation Comments proBNP (test code = PBNP) 1337 pg/mL 0-125 H THYROID PANEL/SCREEN (TSH)2019-06-04 12:05:00 Test Item Value Reference Range Interpretation Comments TSH (test code = A57) 0.989 uIU/mL 0.358-3.740 [id number] 12:02:00 Test Item Value Reference Range Interpretation Comments CPK (test code = 32A) 98 IU/L 26-192 AMYLASE AND [id number] 12:02:00 Test Item Value Reference Range Interpretation Comments AMYLASE (test code = 10A) 19 U/L 28-100 L LIPASE (test code = 60A) 67 IU/L 73-393 L COMPREHENSIVE METABOLIC [id number] 12:02:00 Test Item Value Reference Range Interpretation [...] code = 31A) 41 IU/L <=78 TROPONIN [id number] 11:57:00 Test Item Value Reference Range Interpretation Comments TROPONIN I (test code = A84) <0.015 ng/mL 0.000-0.045 XR CHEST 1 VIEW [id number] 11:55:22EXAM: XR CHEST 1 VIEW PORTABLE.LOCATION: .HISTORY: [id number]: Chest pain.COMPARISON: Radiograph dated 05/12/2019.TECHNIQUE: Single AP view of the chest was obtained. FINDINGS:The heart is enlarged in size. Small left pleural effusion and left basilaropacities are present. There is elevation of the right hemidiaphragm. No acuteosseous abnormality is identified.IMPRESSION:Small left pleural effusion with left basilar opacities, which may representatelectasis or infiltrates.Cardiomegaly. PRO TIME AND [id number] 11:43:00 Test Item Value Reference Range Interpretation [...] (test code = RBCMOR) NORMAL CBC WITH [id number] 15:29:00 Test Item Value Reference Range Interpretation [...] NORMAL (1.5-3 um) NORMAL PLTMOR) BASIC METABOLIC [id number] 15:26:00 Test Item Value Reference Range Interpretation [...] code = 09D) 9.2 mg/dL 8.3-9.5 CARDIAC [id number] 06:04:00 Test Item Value Reference Range Interpretation Comments TROPONIN I (test code = A84) <0.015 ng/mL 0.000-0.045 BASIC METABOLIC [id number] 05:52:00 Test Item Value Reference Range Interpretation [...] MORPH (test code = RBCMOR) NORMAL CARDIAC [id number] 23:08:00 Test Item Value Reference Range Interpretation Comments TROPONIN I (test code = A84) <0.015 ng/mL 0.000-0.045 CT DISSECTION [id number] 19:26:35Exam: CT thorax PE protocol.Location: H 12History: [id number]: Chest painTechnique: Enhanced spiral slices were taken [...] code = A57) 0.706 uIU/mL 0.358-3.740 LIVER [id number] 18:28:00 Test Item Value Reference Range Interpretation [...] = 31A) 21 IU/L <=78 BRAIN NATRIURETIC [id number] 18:19:00 Test Item Value Reference Range Interpretation Comments proBNP (test code = PBNP) 518 pg/mL 0-125 H [id number] 18:15:00 Test Item Value Reference Range Interpretation Comments MAGNESIUM (test code = 48A) 1.9 mg/dL 1.8-2.4 [id number] 17:40:00 Test Item Value Reference Range Interpretation Comments D-DIMER (test code = <200 ng/mL D-DU 0-234 DDI) D-DIMER COMMENT (test *Level to rule out code = DDCOM) DVT or PE: <235 ng/mL D-DU* CARDIAC [id number] 17:31:00 Test Item Value Reference Range Interpretation Comments TROPONIN I (test code = A84) <0.015 ng/mL 0.000-0.045 BASIC METABOLIC [id number] 17:27:00 Test Item Value Reference Range Interpretation [...] LMW Heparin. Order Code is ANTI-XA PROTHROMBIN [id number] 17:26:00 Test Item Value Reference Range Interpretation Comments PT (test code = 12.0 s 9.8-13.6 TT) INR (test code = 1.1 INR) INRH (test code = SUGGESTED THERAPEUTIC INRH) RANGE FOR INR: 2.5 - 3.5 For Patients with Prosthetic Valves or Patients with recurrent Thromboembolic Events 2.0 - 3.0 For Most Other Applications XR CHEST 1 VIEW [id number] 17:04:28Portable AP chest, 1 viewLocation Code: [id number] HISTORY: Chest painCOMPARISON: NoneCOMMENT: Mild atelectasis is present within the lung bases. The costophrenic angles aresharp. The cardiomediastinalsilhouette is unremarkable. The bones are intact.IMPRESSION: Mild bibasilar atelectasis. Otherwise, no acute abnormalityCHEM [id number] 16:51:00 Test Item Value Reference Range Interpretation Comments Creatinine Lvl (test code = Creatinine 1.15 0.50-1.40 Lvl) [facility]2017-01-24 16:51:00 Test Item Value Reference Range Interpretation Comments BUN (test code = BUN) 16 7- [facility]2017-01-24 16:51:00 Test Item Value Reference Range Interpretation Comments Chloride Lvl (test code = Chloride Lvl) 109 95-109 [facility]2017-01-24 16:51:00 Test Item Value Reference Range Interpretation Comments Potassium Lvl (test code = Potassium 4.3 3.5-5.1 Lvl) [facility]2017-01-24 16:51:00 Test Item Value Reference Range Interpretation Comments Sodium Lvl (test code = Sodium Lvl) 144 135-145 [facility]2017-01-24 16:51:00 Test Item Value Reference Range Interpretation Comments CO2 (test code = CO2) [facility]2017-01-24 16:51:00 Test Item Value Reference Range Interpretation Comments Calcium Lvl (test code = Calcium Lvl) 8.4 8.5-10.5 [facility]2017-01-24 16:51:00 Test Item Value Reference Range Interpretation Comments AGAP (test code = AGAP) 11.3 10.0-20.0 [facility]2017-01-24 16:51:00 Test Item Value Reference Range Interpretation Comments Glucose Lvl (test code = Glucose Lvl) 109 70-99 [facility]2017-01-24 16:51:00 Test Item Value Reference Range Interpretation Comments eGFR (test code = eGFR) 52 [facility]2017-01-24 16:51:00 Test Item Value Reference Range Interpretation Comments Creatinine Lvl (test code = Creatinine 1.15 0.50-1.40 Lvl) [facility]2017-01-24 16:51:00 Test Item Value Reference Range Interpretation Comments BUN (test code = BUN) 16 - [facility]2017-01-24 16:51:00 Test Item Value Reference Range Interpretation Comments Chloride Lvl (test code = Chloride Lvl) 109 95-109 [facility]2017-01-24 16:51:00 Test Item Value Reference Range Interpretation Comments Potassium Lvl (test code = Potassium 4.3 3.5-5.1 Lvl) [facility]2017-01-24 16:51:00 Test Item Value Reference Range Interpretation Comments Sodium Lvl (test code = Sodium Lvl) 144 135-145 [facility]2017-01-24 16:51:00 Test Item Value Reference Range Interpretation Comments CO2 (test code = CO2) [facility]2017-01-24 16:51:00 Test Item Value Reference Range Interpretation Comments Calcium Lvl (test code = Calcium Lvl) 8.4 8.5-10.5 [facility]2017-01-24 16:51:00 Test Item Value Reference Range Interpretation Comments AGAP (test code = AGAP) 11.3 10.0-20.0 [facility]2017-01-24 16:51:00 Test Item Value Reference Range Interpretation Comments Glucose Lvl (test code = Glucose Lvl) 109 70-99 [facility]2017-01-24 16:51:00 Test Item Value Reference Range Interpretation Comments eGFR (test code = eGFR) 52 [facility]2017-01-24 16:51:00 Test Item Value Reference Range Interpretation Comments Creatinine Lvl (test code = Creatinine 1.15 0.50-1.40 Lvl) [facility]2017-01-24 16:51:00 Test Item Value Reference Range Interpretation Comments BUN (test code = BUN) 16 - [facility]2017-01-24 16:51:00 Test Item Value Reference Range Interpretation Comments Chloride Lvl (test code = Chloride Lvl) 109 95-109 [facility]2017-01-24 16:51:00 Test Item Value Reference Range Interpretation Comments Potassium Lvl (test code = Potassium 4.3 3.5-5.1 Lvl) [facility]2017-01-24 16:51:00 Test Item Value Reference Range Interpretation Comments Sodium Lvl (test code = Sodium Lvl) 144 135-145 [facility]2017-01-24 16:51:00 Test Item Value Reference Range Interpretation Comments CO2 (test code = CO2) 28 24-32 [facility]2017-01-24 16:51:00 Test Item Value Reference Range Interpretation Comments Calcium Lvl (test code = Calcium Lvl) 8.4 8.5-10.5 [facility]2017-01-24 16:51:00 Test Item Value Reference Range Interpretation Comments AGAP (test code = AGAP) 11.3 10.0-20.0 [facility]2017-01-24 16:51:00 Test Item Value Reference Range Interpretation Comments Glucose Lvl (test code = Glucose Lvl) 109 70-99 [facility]2017-01-24 16:51:00 Test Item Value Reference Range Interpretation Comments eGFR (test code = eGFR) 52 [facility]2017-01-24 16:51:00 Test Item Value Reference Range Interpretation Comments Creatinine Lvl (test code = Creatinine 1.15 0.50-1.40 Lvl) [facility]2017-01-24 16:51:00 Test Item Value Reference Range Interpretation Comments BUN (test code = BUN) 16 - [facility]2017-01-24 16:51:00 Test Item Value Reference Range Interpretation Comments Chloride Lvl (test code = Chloride Lvl) 109 95-109 [facility]2017-01-24 16:51:00 Test Item Value Reference Range Interpretation Comments Potassium Lvl (test code = Potassium 4.3 3.5-5.1 Lvl) [facility]2017-01-24 16:51:00 Test Item Value Reference Range Interpretation Comments Sodium Lvl (test code = Sodium Lvl) 144 135-145 [facility]2017-01-24 16:51:00 Test Item Value Reference Range Interpretation Comments CO2 (test code = CO2) 28 -32 [facility]2017-01-24 16:51:00 Test Item Value Reference Range Interpretation Comments Calcium Lvl (test code = Calcium Lvl) 8.4 8.5-10.5 [facility]2017-01-24 16:51:00 Test Item Value Reference Range Interpretation Comments AGAP (test code = AGAP) 11.3 10.0-20.0 [facility]2017-01-24 16:51:00 Test Item Value Reference Range Interpretation Comments Glucose Lvl (test code = Glucose Lvl) 109 70-99 [facility]2017-01-24 16:51:00 Test Item Value Reference Range Interpretation Comments eGFR (test code = eGFR) 52 [facility]2017-01-24 16:51:00 Test Item Value Reference Range Interpretation Comments Creatinine Lvl (test code = Creatinine 1.15 0.50-1.40 Lvl) [facility]2017-01-24 16:51:00 Test Item Value Reference Range Interpretation Comments BUN (test code = BUN) 16 - [facility]2017-01-24 16:51:00 Test Item Value Reference Range Interpretation Comments Chloride Lvl (test code = Chloride Lvl) 109 95-109 [facility]2017-01-24 16:51:00 Test Item Value Reference Range Interpretation Comments Potassium Lvl (test code = Potassium 4.3 3.5-5.1 Lvl) [facility]2017-01-24 16:51:00 Test Item Value Reference Range Interpretation Comments Sodium Lvl (test code = Sodium Lvl) 144 135-145 [facility]2017-01-24 16:51:00 Test Item Value Reference Range Interpretation Comments CO2 (test code = CO2) 28 -32 [facility]2017-01-24 16:51:00 Test Item Value Reference Range Interpretation Comments Calcium Lvl (test code = Calcium Lvl) 8.4 8.5-10.5 [facility]2017-01-24 16:51:00 Test Item Value Reference Range Interpretation Comments AGAP (test code = AGAP) 11.3 10.0-20.0 [facility]2017-01-24 16:51:00 Test Item Value Reference Range Interpretation Comments Glucose Lvl (test code = Glucose Lvl) 109 70-99 [facility]2017-01-24 16:51:00 Test Item Value Reference Range Interpretation Comments eGFR (test code = eGFR) 52 [facility]2017-01-24 16:51:00 Test Item Value Reference Range Interpretation Comments Creatinine Lvl (test code = Creatinine 1.15 0.50-1.40 Lvl) [facility]2017-01-24 16:51:00 Test Item Value Reference Range Interpretation Comments BUN (test code = BUN) 16 - [facility]2017-01-24 16:51:00 Test Item Value Reference Range Interpretation Comments Chloride Lvl (test code = Chloride Lvl) 109 95-109 [facility]2017-01-24 16:51:00 Test Item Value Reference Range Interpretation Comments Potassium Lvl (test code = Potassium 4.3 3.5-5.1 Lvl) [facility]2017-01-24 16:51:00 Test Item Value Reference Range Interpretation Comments Sodium Lvl (test code = Sodium Lvl) 144 135-145 [facility]2017-01-24 16:51:00 Test Item Value Reference Range Interpretation Comments CO2 (test code = CO2) 28 - [facility]2017-01-24 16:51:00 Test Item Value Reference Range Interpretation Comments Calcium Lvl (test code = Calcium Lvl) 8.4 8.5-10.5 [facility]2017-01-24 16:51:00 Test Item Value Reference Range Interpretation Comments AGAP (test code = AGAP) 11.3 10.0-20.0 [facility]2017-01-24 16:51:00 Test Item Value Reference Range Interpretation Comments Glucose Lvl (test code = Glucose Lvl) 109 70-99 [facility]2017-01-24 16:51:00 Test Item Value Reference Range Interpretation Comments eGFR (test code = eGFR) 52 [facility]2017-01-24 16:51:00 Test Item Value Reference Range Interpretation Comments Creatinine Lvl (test code = Creatinine 1.15 0.50-1.40 Lvl) [facility]2017-01-24 16:51:00 Test Item Value Reference Range Interpretation Comments BUN (test code = BUN) 16 - [facility]2017-01-24 16:51:00 Test Item Value Reference Range Interpretation Comments Chloride Lvl (test code = Chloride Lvl) 109 95-109 [facility]2017-01-24 16:51:00 Test Item Value Reference Range Interpretation Comments Potassium Lvl (test code = Potassium 4.3 3.5-5.1 Lvl) [facility]2017-01-24 16:51:00 Test Item Value Reference Range Interpretation Comments Sodium Lvl (test code = Sodium Lvl) 144 135-145 [facility]2017-01-24 16:51:00 Test Item Value Reference Range Interpretation Comments CO2 (test code = CO2) 28 - [facility]2017-01-24 16:51:00 Test Item Value Reference Range Interpretation Comments Calcium Lvl (test code = Calcium Lvl) 8.4 8.5-10.5 [facility]2017-01-24 16:51:00 Test Item Value Reference Range Interpretation Comments AGAP (test code = AGAP) 11.3 10.0-20.0 [facility]2017-01-24 16:51:00 Test Item Value Reference Range Interpretation Comments Glucose Lvl (test code = Glucose Lvl) 109 70-99 [facility]2017-01-24 16:51:00 Test Item Value Reference Range Interpretation Comments eGFR (test code = eGFR) 52 [facility]2017-01-24 16:51:00 Test Item Value Reference Range Interpretation Comments Creatinine Lvl (test code = Creatinine 1.15 0.50-1.40 Lvl) [facility]2017-01-24 16:51:00 Test Item Value Reference Range Interpretation Comments BUN (test code = BUN) 16 - [facility]2017-01-24 16:51:00 Test Item Value Reference Range Interpretation Comments Chloride Lvl (test code = Chloride Lvl) 109 95-109 [facility]2017-01-24 16:51:00 Test Item Value Reference Range Interpretation Comments Potassium Lvl (test code = Potassium 4.3 3.5-5.1 Lvl) [facility]2017-01-24 16:51:00 Test Item Value Reference Range Interpretation Comments Sodium Lvl (test code = Sodium Lvl) 144 135-145 [facility]2017-01-24 16:51:00 Test Item Value Reference Range Interpretation Comments CO2 (test code = CO2) 28 -32 [facility]2017-01-24 16:51:00 Test Item Value Reference Range Interpretation Comments Calcium Lvl (test code = Calcium Lvl) 8.4 8.5-10.5 [facility]2017-01-24 16:51:00 Test Item Value Reference Range Interpretation Comments AGAP (test code = AGAP) 11.3 10.0-20.0 [facility]2017-01-24 16:51:00 Test Item Value Reference Range Interpretation Comments Glucose Lvl (test code = Glucose Lvl) 109 70-99 [facility]2017-01-24 16:51:00 Test Item Value Reference Range Interpretation Comments eGFR (test code = eGFR) 52 [facility]2017-01-24 16:51:00 Test Item Value Reference Range Interpretation Comments Creatinine Lvl (test code = Creatinine 1.15 0.50-1.40 Lvl) [facility]2017-01-24 16:51:00 Test Item Value Reference Range Interpretation Comments BUN (test code = BUN) 16 - [facility]2017-01-24 16:51:00 Test Item Value Reference Range Interpretation Comments Chloride Lvl (test code = Chloride Lvl) 109 95-109 [facility]2017-01-24 16:51:00 Test Item Value Reference Range Interpretation Comments Potassium Lvl (test code = Potassium 4.3 3.5-5.1 Lvl) [facility]2017-01-24 16:51:00 Test Item Value Reference Range Interpretation Comments Sodium Lvl (test code = Sodium Lvl) 144 135-145 [facility]2017-01-24 16:51:00 Test Item Value Reference Range Interpretation Comments CO2 (test code = CO2) 28 [facility]2017-01-24 16:51:00 Test Item Value Reference Range Interpretation Comments Calcium Lvl (test code = Calcium Lvl) 8.4 8.5-10.5 [facility]2017-01-24 16:51:00 Test Item Value Reference Range Interpretation Comments AGAP (test code = AGAP) 11.3 10.0-20.0 [facility]2017-01-24 16:51:00 Test Item Value Reference Range Interpretation Comments Glucose Lvl (test code = Glucose Lvl) 109 70-99 [facility]2017-01-24 16:51:00 Test Item Value Reference Range Interpretation Comments eGFR (test code = eGFR) 52 [facility]2017-01-24 16:51:00 Test Item Value Reference Range Interpretation Comments Creatinine Lvl (test code = Creatinine 1.15 0.50-1.40 Lvl) [facility]2017-01-24 16:51:00 Test Item Value Reference Range Interpretation Comments BUN (test code = BUN) 16 05-12 [facility]2017-01-24 16:51:00 Test Item Value Reference Range Interpretation Comments Chloride Lvl (test code = Chloride Lvl) 109 95-109 [facility]2017-01-24 16:51:00 Test Item Value Reference Range Interpretation Comments Potassium Lvl (test code = Potassium 4.3 3.5-5.1 Lvl) [facility]2017-01-24 16:51:00 Test Item Value Reference Range Interpretation Comments Sodium Lvl (test code = Sodium Lvl) 144 135-145 [facility]2017-01-24 16:51:00 Test Item Value Reference Range Interpretation Comments CO2 (test code = CO2) 28 24-32 [facility]2017-01-24 16:51:00 Test Item Value Reference Range Interpretation Comments Calcium Lvl (test code = Calcium Lvl) 8.4 8.5-10.5 [facility]2017-01-24 16:51:00 Test Item Value Reference Range Interpretation Comments AGAP (test code = AGAP) 11.3 10.0-20.0 [facility]2017-01-24 16:51:00 Test Item Value Reference Range Interpretation Comments Glucose Lvl (test code = Glucose Lvl) 109 70-99 [facility]2017-01-24 16:51:00 Test Item Value Reference Range Interpretation Comments eGFR (test code = eGFR) 52 [facility]
[2022-11-10 19:33] LABS: Protime INR 1.87
[2022-11-10 19:40] LABS: Absolute Lymphocytes (CBC) 1.1 K/uL (0.7-4.9); Hematocrit 33.5 % (36.0-45.0); Lymphocytes % 7.5 % (15.3-44.8); MCV 101.9 fL (80-100); MPV 8.5 fL (7.6-11.3); RBC Red Blood Cell Count 3.29 M/uL (3.86-4.86)
--- NOTE | 2022-11-10 19:40 | RAD REPORT ---
EXAM DESCRIPTION: RAD - Chest Single View - 11/10/2022 7:29 pm CLINICAL HISTORY: SOB COMPARISON: Portable 11/04/2022 TECHNIQUE: AP portable chest image was obtained 11/10/2022 7:29 pm . FINDINGS: Exam is quite limited. There shallow inspiration which limits lung fill assessment. CT ass essment is further limited by a the patient has known significant right hemidiaphragm elevation. 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 No focal lung parenchymal process seen in the left hemithorax and in the superior aspect of the right hemithorax. Heart size is stable, magnified by the shallow inspiration and portable technique. No significant mc lure or volume overload suspected. Double-lumen dialysis catheter is in place. Loop recorder overlies the left lung base. Small right pleural effusion is suspected. No pneumothorax seen. No acute bony abnormality seen. No acute aortic findings suspected. IMPRESSION: No acute lung parenchymal process suspected. Chronic right base atelectasis is again noted. There is probably a small right pleural effusion.
[2022-11-10] MEDS ORDERED: IPRATROPIUM BROM 0.5MG/2.5ML ONE (19:45)
[2022-11-10] MEDS ORDERED: ALBUTEROL 2.5 MG/3 ML NEB SOL ONE (19:45)
[2022-11-10 19:51] LABS: Magnesium 2.6 mg/dL (1.6-2.4); Potassium 5.5 mmol/L (3.5-5.1); Troponin High Sensitivity 25.1 pg/mL (<58.9)
[2022-11-10 20:02] LABS: Anisocytosis 1+; Blood Morphology Comment NOTED (NOT SEEN); Platelet Estimate DECR; Platelets, Giant OCC
[2022-11-10 20:03] LABS: Macrocytosis 2+; Ovalocytes 2+
[2022-11-10 20:08] LABS: SARS-COV-2 RT PCR NEGATIVE (NEGATIVE)
[2022-11-10 20:29] LABS: Arterial Blood Carboxyhemoglob 1.9 % (0-1.5); Blood Gas Oxyhemoglobin 86.9 % (94-97); Blood O2 Saturation 89.7 % (92-98.5)
--- NOTE | 2022-11-10 21:30 | EDPHYS ---
Physician Documentation [facility] Name: Kassie De Jesus Age: 67 yrs Sex: Female : 1955 Arrival Date: 11/10/2022 Time: 18:24 Bed 20 Private MD: Ranjit Eagle ED Physician Jacky Mcneill HPI: 11/10 18:47 This 67 yrs old Female presents to ER via Wheelchair with complaints of Breathing cp Difficulty - low oxygen 60s. 18:47 The patient has shortness of breath at rest. cp 18:47 Onset: The symptoms/episode began/occurred gradually, and became worse today. Duration: cp The symptoms are continuous, and are steadily getting worse. 18:47 Associated signs and symptoms: Pertinent positives: diarrhea, general weakness, cp Pertinent negatives: chest pain, productive cough, diaphoresis, fever, vomiting. Severity of symptoms: in the emergency department the symptoms are unchanged despite home interventions. reports patient missed dialysis yesterday and only partially completed dialysis [place] due to low blood pressure. concerned patient becoming increasingly weak and not able to use walker. Historical: - Allergies: 18:47 Bactrim; iw 18:47 cefepime; iw 18:47 Codeine; iw 18:47 Levofloxacin; iw 18:47 Morphine; itching; iw 18:47 PENICILLINS; iw 18:47 QUINOLONES; iw - Home Meds: 18:47 Alphagan P ophthalmic (eye) 1 drop twice a day [Active]; amiodarone 200 mg Oral tab 1 iw tab 2 times per day [Active]; apixaban 2.5 mg Oral tab 1 tab 2 times per day [Active]; bumetanide 2 mg Oral tab 1 tab once daily [Active]; digoxin 125 mcg (0.125 mg) Oral tab 1 tab 3 X weekly [Active]; metoprolol tartrate 25 mg Oral tab 0.5 tab 2 times per day [Active]; midodrine 5 mg Oral tab PRN with dialysis [Active]; midodrine 10 mg Oral tab 1 tab Q8H, don't take before dialysis, bring pills to traetment. [Active]; pantoprazole 40 mg Oral TbEC 1 tab once daily [Active]; - PMHx: 18:47 Atrial fibrillation; Congestive heart failure; Hypertensive disorder; stage 4 kidney iw failure; High Cholesterol; Dialysis; - PSHx: 18:47 back surgery; Dialysis catheter LEFT upper chest; iw - Immunization history:: Adult Immunizations unknown. - Social history:: Smoking status: unknown. ROS: 18:50 Constitutional: Negative for body aches, chills, fever. cp 18:50 Eyes: Negative for injury, pain, redness, and discharge. cp 18:50 ENT: Negative for drainage from ear(s), ear pain, sore throat, difficulty swallowing, difficulty handling secretions. 18:50 Cardiovascular: Positive for edema, Negative for chest pain. 18:50 Respiratory: Negative for cough. 18:50 Abdomen/GI: Positive for diarrhea, Negative for abdominal pain, vomiting, constipation, black/tarry stool. 18:50 Neuro: Positive for weakness. 18:50 All other systems are negative. Exam: 18:55 Constitutional: The patient appears in no acute distress, non-diaphoretic, non-toxic, cp well developed, well nourished, obese. 18:55 Head/Face: Normocephalic, atraumatic. cp 18:55 Eyes: Periorbital structures: appear normal, Pupils: equal, round, and reactive to light and accomodation, Extraocular movements: intact throughout, Conjunctiva: normal, no exudate, no injection, Sclera: no appreciated abnormality, Lids and lashes: appear normal, bilaterally. 18:55 ENT: External ear(s): are unremarkable, Nose: is normal, Mouth: Lips: dry, Oral mucosa: moist, Posterior pharynx: Airway: no evidence of obstruction, patent. 18:55 Neck: ROM/movement: is normal, is supple, without pain, no range of motions limitations, no meningismus. 18:55 Chest/axilla: Inspection: normal. 18:55 Cardiovascular: Rate: normal, Rhythm: irregular, Edema: ankle edema, that is moderate, JVD: is not appreciated. 18:55 Respiratory: the patient does not display signs of respiratory distress, Respirations: shallow respirations, that is mild, Breath sounds: decreased breath sounds, that are moderate, throughout, stridor, is not appreciated. 18:55 Abdomen/GI: Inspection: obese Palpation: abdomen is soft and non-tender, in all quadrants. 18:55 Skin: cellulitis, is not appreciated. 18:55 Neuro: Orientation: to person, place, situation, Mentation: able to follow commands, slow to respond, Motor: moves all fours, general weakness with no focal deficits, Sensation: no obvious gross deficits. 19:45 ECG was reviewed by the Attending Physician. cp Vital Signs: 18:44 BP 97 / 68; Pulse 82; Resp 20; Temp 97.8; Pulse Ox 89% on 4 lpm NC; Weight 108.86 kg; iw Height 5 ft. 7 in. (170.18 cm); 19:15 BP 117 / 83; Pulse 88; Resp 20; Pulse Ox 94% on 5 lpm NC; ha1 20:50 BP 110 / 89; Pulse 89; Resp 18 S; Pulse Ox 94% on 40% BiPAP; ha1 21:50 BP 168 / 90; Pulse 80; Resp 16 S; Pulse Ox 94% on 40% BiPAP; ha1 22:50 BP 198 / 122; Pulse 85; Resp 25 S; Pulse Ox 95% on 40% BiPAP; ha1 23:18 BP 218 / 110; Pulse 89; Resp 19 S; Pulse Ox 95% on 40% BiPAP; ha1 23:50 BP 90 / 50; Pulse 75; Resp 24 S; Pulse Ox 94% on 40% BiPAP; ha1 11/11 00:10 BP 95 / 58; Pulse 75; Resp 24 S; Pulse Ox 93% on 40% BiPAP; ha1 00:48 BP 100 / 64; Pulse 76; Resp 25 S; Temp 97.6; Pulse Ox 95% on 40% BiPAP; ha1 01:30 BP 93 / 58; Pulse 70; Resp 22 S; Pulse Ox 94% on 40% BiPAP; ha1 02:30 BP 103 / 50; Pulse 70; Resp 22 S; Pulse Ox 94% on 40% BiPAP; ha1 03:00 BP 100 / 64; Pulse 80; Resp 19 S; Pulse Ox 95% on 40% BiPAP; ha1 11/10 18:44 Body Mass Index 37.59 (108.86 kg, 170.18 cm) iw MDM: 11/10 18:52 Patient medically screened. cp 21:25 ED course: consult with DR Eagle regarding patient condition. After discussion does not cp want antibiotics, CT abdomen/pelvis at this time. Requests admission to floor and not ICU. 21:30 Data reviewed: vital signs, nurses notes, lab test result(s), EKG, radiologic studies, cp plain films. 21:30 Consideration of Admission/Observation Patient was admitted/placed on observation. cp Management of patient was discussed with the following: Air Conditioning Insulation Installer: DR Eagle. I considered the following discharge prescriptions or medication management in the emergency department Medications were administered in the Emergency Department. See MAR. Independent interpretation of the following test(s) in the Emergency Department EKG: See my EKG interpretation above. Test considered but Not performed: Other Details CT abdomen/pelvis. Historians other than the Patient: Spouse/Significant Other: provides HPI. Care significantly affected by the following chronic conditions: Hypertension, Congestive Heart Failure, Obesity, Chronic Kidney Disease. 23:10 ED course: discussed elevated blood pressure with DR Amado. Recommends clonidine 0.1 cp at 2330 and may repeat 30 minutes later if blood pressure remains elevated. 11/10 19:01 Order name: Basic Metabolic Panel; Complete Time: 20:05 cp 11/10 20:05 Interpretation: Normal except: NA 135; K 5.5; CO2 19; ANION GAP 22.5; GLUC 70; CRE cp 9.41; BUN 78; GFR 4. 11/10 19:01 Order name: CBC with Diff; Complete Time: 20:05 cp 11/10 20:34 Interpretation: Normal except: WBC 14.10; RBC 3.29; HGB 9.9; HCT 33.5; MCV 101.9; MCHC cp 29.4; RDW 19.2; CARMEN% 86.4; LYM% 7.5; NEUT A 12.2. 11/10 19:01 Order name: Magnesium; Complete Time: 20:05 cp 11/10 19:01 Order name: NT PRO-BNP; Complete Time: 20:05 cp 11/10 19:01 Order name: PT-INR; Complete Time: 19:44 cp 11/10 19:45 Interpretation: Reviewed. cp 11/10 19:01 Order name: Troponin HS; Complete Time: 20:05 cp 11/10 19:02 Order name: SARS RAPID la1 11/10 19:02 Order name: COVID-19/FLU A+B; Complete Time: 20:10 cp 11/10 19:03 Order name: ABG; Complete Time: 21:10 cp 11/10 19:46 Order name: Manual Differential; Complete Time: 20:05 EDMS 11/10 20:16 Order name: Blood Culture Adult (2) cp 11/10 20:16 Order name: Urine Microscopic Only cp 11/10 20:16 Order name: Lactate w/ 2H reflex if indic.; Complete Time: 22:36 cp 11/10 22:36 Interpretation: Reviewed. 11/10 19:01 Order name: XRAY Chest (1 view); Complete Time: 19:44 11/10 19:45 Interpretation: Report review. 11/10 20:16 Order name: CDIFF 11/10 20:16 Order name: Ova And Parasites 11/10 20:16 Order name: Rotavirus Antigen 11/10 20:16 Order name: Stool Culture 11/11 01:13 Order name: Basic Metabolic Panel [facility] 11/11 01:13 Order name: Basic Metabolic Panel EDIL 11/11 01:13 Order name: CBC with Automated Diff EDIL 11/11 01:13 Order name: CBC with Automated Diff EDIL 11/11 01:13 Order name: NT PRO-BNP [facility] 11/11 01:13 Order name: NT PRO-BNP [facility] 11/11 01:16 Order name: Lactate Sepsis 2 HR Follow-up; Complete Time: 01:36 EDIL 11/10 19:01 Order name: EKG; Complete Time: 19:02 11/10 19:01 Order name: Cardiac monitoring; Complete Time: 19:29 11/10 19:01 Order name: EKG - Nurse/Tech; Complete Time: 19:40 11/10 19:01 Order name: IV Saline Lock; Complete Time: 19:29 11/10 19:01 Order name: Labs collected and sent; Complete Time: 19:29 11/10 19:01 Order name: O2 Per Protocol; Complete Time: 19:29 cp 11/10 19:01 Order name: O2 Sat Monitoring; Complete Time: 19:29 cp 11/10 20:16 Order name: Cath cp 11/10 20:16 Order name: Urine Dipstick-Ancillary (obtain specimen) 11/10 20:57 Order name: Misc. Order: D10W at 40 cc/hr cp EC:45 Rate is 82 beats/min. Rhythm is irregular. QRS interval is prolonged at 106 msec. QT cp interval is normal. Interpreted by me. Reviewed by me. Administered Medications: 19:39 Drug: Albuterol - atroVENT (ipratropium) (3:1) (2.5 mg - 0.5 mg) 3 ml Route: Nebulizer; ha1 19:50 Follow up: Response: No adverse reaction ha1 21:30 Drug: Sodium Bicarbonate 1 amp Route: IVP; Site: right forearm; ha1 22:00 Follow up: Response: No adverse reaction ha1 22:05 Drug: hydrALAZINE 10 mg Route: IVP; Site: right forearm; ha1 22:10 Drug: D50W 25 ml Route: IVP; Site: right forearm; ha1 23:00 Follow up: Response: No adverse reaction ha1 22:10 Drug: Calcium Gluconate 1 grams Route: IVPB; Infused Over: 60 mins; Site: right forearm;ha1 23:20 Follow up: Response: No adverse reaction; IV Status: Completed infusion; IV Intake: [id number] 22:50 Drug: hydrALAZINE 10 mg Route: IVP; Site: right forearm; ha1 23:18 Follow up: Response: No adverse reaction; Blood pressure is unchanged ha1 23:19 Not Given (not in inventory): Lokelma Powder 10 grams PO once ha1 23:54 Drug: NS 0.9% 250 ml Route: IV; Rate: bolus; Site: right forearm; ha1 11/11 02:00 Follow up: Response: No adverse reaction; IV Status: Completed infusion; IV Intake: ha1 250ml 00:55 CANCELLED (Physician Discretion): Norepinephrine 0.1 mcg/kg/min IV at calculated rate cp Per protocol; (Standard concentration 4 mg / 250 mL D5W); Recommended max rate 3 mcg/kg/min; Titrate 0.05 mcg/kg/min as often as every 5 minutes to achieve goal (see titration policy); Goal parameter MAP greater than 65 mmHg. Disposition: 11/10 19:16 Co-signature as Attending Physician, Jacky NGUYEN was immediately available on-site ms3 in the Emergency Department for consultation in the care of the patient. Disposition Summary: 11/10/22 21:29 Hospitalization Ordered Hospitalization Status: Inpatient Admission cp Provider: Ranjit Eagle cp Condition: Serious cp Problem: new cp Symptoms: have improved cp Bed/Room Type: Standard cp Location: Intensive Care Unit(11/11/22 01:42) cg Room Assignment: 3-(11/11/22 01:44) cg Diagnosis - Acidosis cp - Acute and chronic respiratory failure cp - Diarrhea, unspecified cp Forms: - Medication Reconciliation Form cp - SBAR form cp Signatures: Dispatcher [employer] EDMS Adrina Lin MD MD cha Williams, Irene, RN RN iw Ramón Jacobson, WOOL PULLER-C WOOL PULLER-Cla1 Adrian Romero PA PA cp Yasmin Yao, ARMANDO RN Jacky Coe, DO ms3 Funmilayo Agudelo RN RN ha1 Corrections: (The following items were deleted from the chart) : 20:20 Abdomen ordered. EDIL EDMS 21:47 19:24 Arterial Blood Gas+RC.LAB.BRZ ordered. EDIL EDMS 11/11 00:55 00:49 Norepinephrine 0.1 mcg/kg/min IV at calculated rate Per protocol; (Standard cp concentration 4 mg / 250 mL D5W); Recommended max rate 3 mcg/kg/min; Titrate 0.05 mcg/kg/min as often as every 5 minutes to achieve goal (see titration policy); Goal parameter MAP greater than 65 mmHg. ordered. cp :11/10 21:29 Telemetry/MedSurg (Inpatient) cp cg 11/11 01:42 11/10 21:29 cp cg 11/11 01:44 01:42 7- cg cg 11/12 01:54 11/10 18:47 reports patient missed dialysis yesterday and only partially cp completed dialysis Sunday due to low blood pressure. concerned patient becoming increasingly weak. cp 11/12 02:02 11/10 21:25 ED course: consult with DR Eagle regarding patient condition. After cp discussion does not want antibiotics, CT abdomen/pelvis at this time. cp
--- NOTE | 2022-11-10 21:30 | ER ---
Nurse's Notes [facility] Name: Kassie De Jesus Age: 67 yrs Sex: Female : 1955 Arrival Date: 11/10/2022 Time: 18:24 Bed 20 Private MD: Ranjit Eagle Diagnosis: Acidosis;Acute and chronic respiratory failure;Diarrhea, unspecified Presentation: 11/10 18:44 Chief complaint: Spouse and/or significant other states: she has had diarrhea and iw vomiting X 3 days and she missed dialysis, last dialyzed on Sunday and did not complete it , she has been out of it, I can't keep her O2 level above 80-90% on her home O2. Coronavirus screen: Client presents with at least one sign or symptom that may indicate coronavirus-19. Ebola Screen: Patient negative for fever greater than or equal to 101.5 degrees Fahrenheit, and additional compatible Ebola Virus Disease symptoms Patient denies exposure to infectious person. Patient denies travel to an Ebola-affected area in the 21 days before illness onset. No symptoms or risks identified at this time. Initial Sepsis Screen: Does the patient meet any 2 criteria? No. Patient's initial sepsis screen is negative. Does the patient have a suspected source of infection? No. Patient's initial sepsis screen is negative. Risk Assessment: Do you want to hurt yourself or someone else? Patient reports no desire to harm self or others. Onset of symptoms was November 10, 2022. 18:44 Method Of Arrival: Wheelchair iw 18:44 Acuity: LENI 2 iw Triage Assessment: 19:20 Respiratory: the patient has moderate shortness of breath. ha1 Historical: - Allergies: 18:47 Bactrim; iw 18:47 cefepime; iw 18:47 Codeine; iw 18:47 Levofloxacin; iw 18:47 Morphine; itching; iw 18:47 PENICILLINS; iw 18:47 QUINOLONES; iw - Home Meds: 18:47 Alphagan P ophthalmic (eye) 1 drop twice a day [Active]; amiodarone 200 mg Oral tab 1 iw tab 2 times per day [Active]; apixaban 2.5 mg Oral tab 1 tab 2 times per day [Active]; bumetanide 2 mg Oral tab 1 tab once daily [Active]; digoxin 125 mcg (0.125 mg) Oral tab 1 tab 3 X weekly [Active]; metoprolol tartrate 25 mg Oral tab 0.5 tab 2 times per day [Active]; midodrine 5 mg Oral tab PRN with dialysis [Active]; midodrine 10 mg Oral tab 1 tab Q8H, don't take before dialysis, bring pills to traetment. [Active]; pantoprazole 40 mg Oral TbEC 1 tab once daily [Active]; - PMHx: 18:47 Atrial fibrillation; Congestive heart failure; Hypertensive disorder; stage 4 kidney iw failure; High Cholesterol; Dialysis; - PSHx: 18:47 back surgery; Dialysis catheter LEFT upper chest; iw - Immunization history:: Adult Immunizations unknown. - Social history:: Smoking status: unknown. Screenin:15 Abuse screen: Denies threats or abuse. Denies injuries from another. Nutritional ha1 screening: No deficits noted. Tuberculosis screening: No symptoms or risk factors identified. 19:20 [facility] ED Fall Risk Assessment (Adult) History of falling in the last 3 months, ha1 including since admission No falls in past 3 months (0 pts) Confusion or Disorientation No (0 pts) Intoxicated or Sedated No (0 pts) Impaired Gait Yes (1 pt) Mobility Assist Device Used Yes (1 pt) Altered Elimination No (0 pt) Score/Fall Risk Level 0 - 2 = Low Risk Oriented to surroundings, Maintained a safe environment, Educated pt \T\ family on fall prevention, incl call for assistance when getting out of bed, Assessed \T\ reinforced patient's understanding of fall precautions, Provided non-skid footwear, Hourly rounding (assess needs \T\ fall precautionary measures) done. Assessment: 19:15 General: Appears comfortable, Behavior is calm, cooperative. Pain: Denies pain. Neuro: ha1 Level of Consciousness is awake, alert, obeys commands, Oriented to person, place, time, situation. Cardiovascular: Heart tones S1 S2 present Capillary refill < 3 seconds Patient's skin is warm and dry. Rhythm is sinus rhythm. Respiratory: Airway is patent Respiratory effort is even, unlabored, Respiratory pattern is regular, symmetrical. Respiratory: Reports shortness of breath at rest and low oxygen saturation Breath sounds are clear bilaterally. GI: No signs and/or symptoms were reported involving the gastrointestinal system. Abdomen is round non-distended, Bowel sounds present X 4 quads. : No signs and/or symptoms were reported regarding the genitourinary system. EENT: No signs and/or symptoms were reported regarding the EENT system. Derm: Skin is dry, Skin is normal. Musculoskeletal: Circulation, motion, and sensation intact. 19:40 Reassessment: respiratory therapy in the room. informed pt. about the need for Bi pad. ha1 ABGs results were reported to care provider. respiratory therapist in the room. 19:50 Reassessment: Patient and/or family updated on plan of care and expected duration. Pain ha1 level reassessed. notified care provider Patient states symptoms have not improved. 20:50 Reassessment: Patient and/or family updated on plan of care and expected duration. Pain ha1 level reassessed. Patient is alert, oriented x 3, equal unlabored respirations, skin warm/dry/pink. Patient states symptoms have improved. 20:50 Respiratory: Respiratory effort is even, unlabored, Respiratory pattern is tachypnea. ha1 21:20 Reassessment: Patient and/or family updated on plan of care and expected duration. Pain ha1 level reassessed. 21:55 Reassessment: Patient and/or family updated on plan of care and expected duration. Pain ha1 level reassessed. elevated blood pressure. notified care provider. 22:50 Reassessment: Patient and/or family updated on plan of care and expected duration. Pain ha1 level reassessed. elevated blood pressure. BP unchanged not responding to treatment. notified care provider. 22:50 Respiratory: Respiratory effort is even, unlabored, Respiratory pattern is tachypnea. ha1 23:50 Reassessment: Patient and/or family updated on plan of care and expected duration. Pain ha1 level reassessed. low BP. reported to care provider. 23:50 Respiratory: Respiratory effort is even, unlabored, Respiratory pattern is tachypnea. ha1 11/11 00:50 Reassessment: Patient and/or family updated on plan of care and expected duration. Pain ha1 level reassessed. 00:50 Respiratory: Respiratory effort is even, unlabored, Respiratory pattern is tachypnea. ha1 01:30 Reassessment: Patient is alert, oriented x 3, equal unlabored respirations, skin ha1 warm/dry/pink. eyes closed. 02:00 Reassessment: pt. wanting to remove Bi pad. explained the importance of keeping Bi pad. ha1 pt. agreed to keep mask on place. 02:41 Reassessment: Patient and/or family updated on plan of care and expected duration. Pain ha1 level reassessed. awaiting for respiratory therapist to transfer pt to ICU. 03:10 Reassessment: being transported to ICU connected to Bi pad with respiratory at bedside. ha1 Vital Signs: 11/10 18:44 BP 97 / 68; Pulse 82; Resp 20; Temp 97.8; Pulse Ox 89% on 4 lpm NC; Weight 108.86 kg; iw Height 5 ft. 7 in. (170.18 cm); 19:15 BP 117 / 83; Pulse 88; Resp 20; Pulse Ox 94% on 5 lpm NC; ha1 20:50 BP 110 / 89; Pulse 89; Resp 18 S; Pulse Ox 94% on 40% BiPAP; ha1 21:50 BP 168 / 90; Pulse 80; Resp 16 S; Pulse Ox 94% on 40% BiPAP; ha1 22:50 BP 198 / 122; Pulse 85; Resp 25 S; Pulse Ox 95% on 40% BiPAP; ha1 23:18 BP 218 / 110; Pulse 89; Resp 19 S; Pulse Ox 95% on 40% BiPAP; ha1 23:50 BP 90 / 50; Pulse 75; Resp 24 S; Pulse Ox 94% on 40% BiPAP; ha1 11/11 00:10 BP 95 / 58; Pulse 75; Resp 24 S; Pulse Ox 93% on 40% BiPAP; ha1 00:48 BP 100 / 64; Pulse 76; Resp 25 S; Temp 97.6; Pulse Ox 95% on 40% BiPAP; ha1 01:30 BP 93 / 58; Pulse 70; Resp 22 S; Pulse Ox 94% on 40% BiPAP; ha1 02:30 BP 103 / 50; Pulse 70; Resp 22 S; Pulse Ox 94% on 40% BiPAP; ha1 03:00 BP 100 / 64; Pulse 80; Resp 19 S; Pulse Ox 95% on 40% BiPAP; ha1 11/10 18:44 Body Mass Index 37.59 (108.86 kg, 170.18 cm) iw ED Course: 11/10 18:24 Patient arrived in ED. am2 18:25 Ranjit Eagle MD is Private Physician. am2 18:25 [facility] cp 18:25 Jacky Mcneill DO is Attending Physician. cp 18:47 Triage completed. iw 18:48 Arm band placed on. iw 19:10 Client placed on continuous cardiac and pulse oximetry monitoring. NIBP monitoring ha1 applied. 19:13 Inserted saline lock: 22 gauge in right forearm, using aseptic technique. Blood ds4 collected. 19:15 Patient has correct armband on for positive identification. Placed in gown. Bed in low ha1 position. Call light in reach. Side rails up X 1. Adult w/ patient. 19:31 XRAY Chest (1 view) In Process Unspecified. EDMS 19:38 Funmilayo Agudelo RN is Primary Nurse. ha1 21:28 Ranjit Eagle MD is Hospitalizing Provider. cp 22:50 Door closed. Noise minimized. Lights dimmed. Warm blanket given. ha1 11/11 02:44 No provider procedures requiring assistance completed. Patient admitted, IV remains in ha1 place. Administered Medications: 11/10 19:39 Drug: Albuterol - atroVENT (ipratropium) (3:1) (2.5 mg - 0.5 mg) 3 ml Route: Nebulizer; ha1 19:50 Follow up: Response: No adverse reaction ha1 21:30 Drug: Sodium Bicarbonate 1 amp Route: IVP; Site: right forearm; ha1 22:00 Follow up: Response: No adverse reaction ha1 22:05 Drug: hydrALAZINE 10 mg Route: IVP; Site: right forearm; ha1 22:10 Drug: D50W 25 ml Route: IVP; Site: right forearm; ha1 23:00 Follow up: Response: No adverse reaction ha1 22:10 Drug: Calcium Gluconate 1 grams Route: IVPB; Infused Over: 60 mins; Site: right forearm;ha1 23:20 Follow up: Response: No adverse reaction; IV Status: Completed infusion; IV Intake: [id number] 22:50 Drug: hydrALAZINE 10 mg Route: IVP; Site: right forearm; ha1 23:18 Follow up: Response: No adverse reaction; Blood pressure is unchanged ha1 23:19 Not Given (not in inventory): Lokelma Powder 10 grams PO once ha1 23:54 Drug: NS 0.9% 250 ml Route: IV; Rate: bolus; Site: right forearm; ha1 11/11 02:00 Follow up: Response: No adverse reaction; IV Status: Completed infusion; IV Intake: ha1 250ml 00:55 CANCELLED (Physician Discretion): Norepinephrine 0.1 mcg/kg/min IV at calculated rate cp Per protocol; (Standard concentration 4 mg / 250 mL D5W); Recommended max rate 3 mcg/kg/min; Titrate 0.05 mcg/kg/min as often as every 5 minutes to achieve goal (see titration policy); Goal parameter MAP greater than 65 mmHg. Medication: 03:15 VIS not applicable for this client. ha1 Intake: 11/10 23:20 IV: 50ml; Total: 50ml. ha1 11/11 02:00 IV: 250ml; Total: 300ml. ha1 Outcome: 11/10 21:29 Decision to Hospitalize by Provider. cp 11/11 02:44 Condition: stable ha1 03:10 Patient left the ED. ha1 03:10 Admitted to ICU accompanied by nurse, via stretcher, room 3, with oxygen, on monitor, with chart, Report called to ARMANDO Umana 03:10 Instructed on the need for admit. Signatures: Dispatcher [employer] EDToyin Mike RN RN iw Swanson, Donovan ds4 Adrian Romero PA PA cp Moreno, Amanda am2 Funmilayo Agudelo RN RN ha1 Corrections: (The following items were deleted from the chart) 11/10 18:49 18:44 Chief complaint: Spouse and/or significant other states: she has had diarrhea and iw vomiting X 3 days and she missed dialysis, last dialyzed on Sunday and did not complete it , she has been out of it, I can't keep her O2 level above 80-90% on her home O2 iw 18:50 18:44 BP 158 / ???; Pulse 82bpm; Resp 20bpm; Pulse Ox 89% 4 lpm Nasal Cannula; iw iw 18:50 18:44 BP 158 / ???; Pulse 82bpm; Resp 20bpm; Pulse Ox 89% 4 lpm Nasal Cannula; Temp iw 97.8F; 108.86 kg; Height 5 ft. 7 in.; BMI: 37.5; iw 11/11 04:22 11/10 20:10 Reassessment: Patient and/or family updated on plan of care and expected ha1 duration. Pain level reassessed. notified care provider Patient states symptoms have not improved. 11/11 04:22 11/10 19:40 Reassessment: respiratory therapy in the room. informed about the need for ha1 Bi pad. 11/11 04:26 04:25 Response: No adverse reaction; IV Status: Completed infusion; IV Intake: 250ml ha1 04:31 11/10 20:10 Reassessment: Patient and/or family updated on plan of care and expected ha1 duration. Pain level reassessed. notified care provider Patient states symptoms have not improved. 11/11 04:34 11/10 20:55 Reassessment: Patient and/or family updated on plan of care and expected ha1 duration. Pain level reassessed. elevated blood pressure. notified care provider [facility] 11/11 04:42 11/10 22:50 Reassessment: Patient and/or family updated on plan of care and expected ha1 duration. Pain level reassessed. elevated blood pressure. BP unchanged not responding to treatment. notified care provider [facility] 11/11 04:44 04:23 Reassessment: Patient and/or family updated on plan of care and expected ha1 duration. Pain level reassessed. Patient is alert, oriented x 3, equal unlabored respirations, skin warm/dry/pink. 04:46 11/10 21:55 Reassessment: Patient and/or family updated on plan of care and expected ha1 duration. Pain level reassessed. elevated blood pressure. notified care provider [facility] 11/11 04:53 03:10 Reassessment: being transported to ICU connected to Bi pad with respiratory at [facility] bedside 03:14 Instructed on the need for admit, [facility] 03:14 Admitted to ICU accompanied by nurse, via stretcher, room 3, with oxygen, on [facility] monitor, with chart, Report called to ARMANDO Umana 54 03:17 Patient left the ED. [place] [id number]
[2022-11-10] MEDS ORDERED: HYDRALAZINE HCL 20 MG/ML VIAL ONE ×2 (22:03→22:48)
[2022-11-10] MEDS ORDERED: SODIUM BICARB 50 MEQ/50ML VIAL ONE (22:05)
[2022-11-10] MEDS ORDERED: CALCIUM GLUCONATE 1 GM IVPB 1 GM/50 ML BAG IV ONE (22:05)
[2022-11-10] MEDS ORDERED: D10W 250 ML IV ONE (22:06)
[2022-11-10] MEDS ORDERED: NA CHLORIDE 0.9% 250 ML ONE (23:52)
[2022-11-11] MEDS ORDERED: IPRATROPIUM BROM 0.5MG/2.5ML NEB PRN (01:08)
[2022-11-11] MEDS ORDERED: ONDANSETRON 4 MG/2 ML VIAL IV PRN (01:08)
[2022-11-11] MEDS ORDERED: ALBUTEROL 2.5 MG/3 ML NEB SOL NEB PRN (01:08)
[2022-11-11] MEDS ORDERED: DEXTROSE 10%-WATER 500 ML IV SCH (01:15)
[2022-11-11] MEDS ORDERED: PROMETHAZINE 25 MG TABLET PO PRN (07:54)
--- NOTE | 2022-11-11 08:09 | P.HP ---
Certification for Inpatient Patient admitted to: Observation With expected LOS: <2 Midnights Patient will require the following post-hospital care: None Practitioner: I am a practitioner with admitting privileges, knowledge of patient current condition, hospital course, and medical plan of care. Services: Services provided to patient in accordance with Admission requirements found in Title 42 Section 412.3 of the Code of Federal Regulations Patient History Date of Service: 11/11/22 Primary Care Provider: Fco Reason for admission: fluid overload History of Present Illness: Patient is well know to me. Has chf and esrd. She seems to have missed her dialysis. She does not know why she was here. May have had some diarrhea. The patient was unresponsive when she came to the ER. She is awake and off the bipap this morning. Nephrology has been consulted. Allergies cefepime Allergy (Verified 11/11/22 04:23) Hives codeine Allergy (Verified 11/11/22 04:23) Itching levofloxacin Allergy (Verified 11/11/22 04:23) Hives/Rash morphine Allergy (Verified 11/11/22 04:23) Itching Penicillins Allergy (Verified 11/11/22 04:23) Hives/Rash sulfamethoxazole [From Bactrim] Allergy (Verified 11/11/22 04:23) Hives trimethoprim [From Bactrim] Allergy (Verified 11/11/22 04:23) Hives Home Medications: Apixaban [Eliquis] 2.5 mg PO BID 05/19/22 Bumetanide 2 tab PO DAILY 05/19/22 Midodrine HCl 5 mg PO TID 05/19/22 Pantoprazole [Protonix Tab*] 1 tab PO DAILY 05/19/22 Sevelamer Carbonate [Renvela] 800 mg PO TID 05/19/22 Amiodarone HCl [Cordarone*] 200 mg PO BID 90 Days #180 tab 10/20/22 Alendronate Sodium 70 mg PO MO 10/25/22 Gabapentin 300 mg PO BEDTIME 10/25/22 Promethazine Tab [Phenergan*] 25 mg PO Q6HP PRN 30 Days #90 tab 10/26/22 Brimonidine Tartrate [Alphagan P] 1 drop EACH EYE BID 11/05/22 Metoprolol Tartrate [Lopressor*] 12.5 mg PO BID 11/05/22 Minocycline HCl [Minocin] 1 tab PO BID 11/05/22 - Past Medical/Surgical History Has patient received pneumonia vaccine in the past: Yes Diabetic: No -: Chronic hypotension -: Hyperlipidemia -: Chronic anticoagulation use -: History of nephrolithiasis requiring stent placement -: Recurrent UTI -: End-stage renal disease -: CHF -: HTN -: A-Fib -: tubal ligation -: dialysis port -: cholecystectomy -: right broken wrist -: lasik -: cataracts removed -: back surgery - Family History Sister -: Cancer Notes: per pt, sister has lung cancer and is being treated for a "spot on her brain" Father -: Lung disease - Social History Smoking Status: Never smoker Alcohol use: No CD- Drugs: No Caffeine use: Yes Place of Residence: Home Review of Systems 10-point ROS is otherwise unremarkable Physical Examination - Vital Signs Temperature: 97.5 F Blood Pressure: 97/52 Pulse: 66 Respirations: 20 Pulse Ox (%): 94 - Physical Exam General: Alert, In no apparent distress HEENT: Atraumatic, PERRLA, Mucous membr. moist/pink, EOMI, Sclerae nonicteric Neck: Supple, 2+ carotid pulse no bruit, No LAD, Without JVD or thyroid abnormality Respiratory: Clear to auscultation bilaterally, Normal air movement Cardiovascular: Regular rate/rhythm, Normal S1 S2 Gastrointestinal: Normal bowel sounds, No tenderness Musculoskeletal: No tenderness Integumentary: No rashes Neurological: Normal gait, Normal speech, Normal strength at 5/5 x4 extr, Normal tone, Normal affect Lymphatics: No axilla or inguinal lymphadenopathy - Studies Laboratory Data (last 24 hrs) 11/10/22 19:13: PT 20.6 H, INR 1.87 11/10/22 19:13: WBC 14.10 H, Hgb 9.9 L, Hct 33.5 L, Plt Count 179 11/10/22 19:13: Sodium 135 L, Potassium 5.5 H, BUN 78 H, Creatinine 9.41 H*, Glucose 70 L, Magnesium 2.6 H Microbiology Data (last 24 hrs): 11/10/22 21:48 Blood - Blood Anaerobic Blood Culture - Final Assessment and Plan - Problems (Diagnosis) (1) ESRD (end stage renal disease) on dialysis Current Visit: No Status: Chronic Plan: restart dialysis with Dr. Powers's group. (2) Atrial fibrillation Current Visit: No Status: Acute Plan: continue amiodarone and metoprolol Qualifiers: (3) CHF (congestive heart failure) Current Visit: No Status: Chronic Plan: will continue metoprolol. She should be on a nocturnal cpap for her sleep apnea. However the patient is not compliant. She comes in several times and requires positive pressure ventilation. She take it off as soon as she wakes up and refuses it. Qualifiers: Heart failure type: diastolic Heart failure chronicity: chronic Qualified Code(s): I50.32 - Chronic diastolic (congestive) heart failure (4) Non-compliance with renal dialysis Current Visit: No Status: Chronic Plan: Patient is poorly compliant with her treatment. Of course she has chf and esrd. A very poor snf prognosis. She most likely has very poor quality of life. Which would make her non-compliance understandable. - Advance Directives Does patient have a Living Will: No Does patient have a Durable POA for Healthcare: No - Code Status/Comfort Care Code Status Assessed: Yes Code Status: Full Code Physician Review: Patient Assessed, Agree with Above Assessment and Plan Critical Care: No Time Spent Managing Pts Care (In Minutes): 45
[2022-11-11] MEDS: AMIODARONE HCL 200 MG TAB PO SCH ×2 (08:18→20:27)
[2022-11-11] MEDS: PANTOPRAZOLE 40MG TABLET PO SCH (08:19)
[2022-11-11] MEDS: SEVELAMER CARBONATE 800 MG TABLET PO SCH ×3 (08:19→20:26)
[2022-11-11] MEDS: APIXABAN 2.5 MG TABLET PO SCH ×2 (08:26→20:27)
[2022-11-11] MEDS ORDERED: MIDODRINE HCL 5 MG TABLET PO ONE (08:56)
[2022-11-11] MEDS ORDERED: HOME MED 1 EA UNK (Midodrine Hcl [Midodrine Hcl] 10 MG Tablet) PO SCH (09:00)
[2022-11-11] MEDS ORDERED: MIDODRINE HCL 5 MG TABLET PO SCH ×2 (09:00→14:00)
[2022-11-11] MEDS: METOPROLOL TAR 25 MG TAB PO SCH ×2 (09:00→19:11)
[2022-11-11] MEDS ORDERED: APIXABAN 5 MG TABLET PO SCH (09:00)
[2022-11-11] MEDS ORDERED: HOME MED 1 EA UNK (Brimonidine Tartrate [Alphagan P] 10 ML Drops) EACH EYE SCH (09:00)
[2022-11-11] MEDS: SODIUM ZIRCONIUM CYCLOSILICATE 10 GM/PKT PO SCH ×3 (09:07→20:26)
[2022-11-11] MEDS: MIDODRINE HCL 5 MG TABLET PO SCH ×3 (09:09→20:26)
[2022-11-11] MEDS ORDERED: ALBUMIN HUMAN 25% 100 ML IV ONE ×3 (09:59→10:01)
[2022-11-11] MEDS: ALBUMIN HUMAN 25% 100 ML IV ONE ×2 (11:29→12:00)
[2022-11-11] MEDS: IBUPROFEN 600 MG TAB PO SCH ×2 (12:00→17:23)
[2022-11-11] MEDS: HYDROMORPHONE HCL 0.5 MG/0.5 ML INJ IV PRN (16:20)
[2022-11-11] MEDS ORDERED: EPOETIN ALFA-EPBX 4,000 UNIT/ML VIAL ONE (19:13)
[2022-11-11] MEDS: GABAPENTIN 300 MG CAP PO SCH (20:27)
[2022-11-11] MEDS: HOME MED 1 EA UNK (Brimonidine Tartrate [Alphagan P] 10 ML Drops) OPTH SCH (21:00)
--- NOTE | 2022-11-12 01:17 | CON ---
Date of Consultation: 11/11/2022 Chief Complaint: End-stage renal disease, fluid overload, congestive heart failure, diastolic dysfun ction acute on chronic, nausea, vomiting, hypotension. Patient has history of congestive heart failu re, obstructive sleep apnea, end-stage renal disease, history of urosepsis, kidney stones, status pos t cholecystectomy, history of acute pancreatitis. The patient presented to the hospital because of g eneralized weakness. She missed dialysis on and became short of breath and blood pressure w as declining. Patient has history of chronic hypotension. She takes midodrine 5 mg 3 times per day as well as takes midodrine before dialysis to prevent intradialytic hypotension. The patient has his tory of cardiac arrhythmia. She is on amiodarone. Review of Systems: General: Denies fever or chills. Eyes: Denies vision changes. Ears, Nose, Mouth, and Throat: Denies sore throat or earache. Respiratory System: Dyspnea on exertion. Denies syncope. GI: Has nausea, vomiting. Denies melena, hematemesis. : Denies dysuria or hematuria. Denies kidney colic. All other systems reviewed and all are negative. Past Medical History: Chronic hypotension, hyperlipidemia, end-stage renal disease, obesity, obstruc tive sleep apnea, history of nephrolithiasis requiring stent placement, recurrent UTI, congestive hea rt failure, diastolic dysfunction, atrial fibrillation, tubal ligation, dialysis port and dialysis ca theter, cholecystectomy, right broken wrist, cataract removed, history of degenerative disk disease. Family History: Sister, lung cancer and metastatic disease to the brain from the lung disease. Social History: Never a smoker. Denies alcohol or illicit drugs. Physical Examination: General: Patient is in ICU. She is lethargic and forgetful, but she denies chest pain, palpitation. She answers question. She is alert, not in apparent distress. Eyes: Anicteric sclerae. EOMI. Ears, Nose, Mouth, and Throat: Oral mucosa moist. No pallor. Neck: Supple. No bruits. Lungs: Few rhonchi. Heart: S1, S2. No pericardial friction rub. Abdomen: Obese, soft, nontender. Extremities: Slight edema in both legs. Neurological: Moving extremities. Cranial nerves intact. Laboratory Data: WBC 14.1, hemoglobin 9.9, platelet count 179,000. Potassium 5.5, sodium 135, gluco se 70, creatinine 9.41, magnesium 2.6. Impression And Plan: 1.End-stage renal disease. Patient will have dialysis today with ultrafiltration. Plan is to richar nue midodrine for blood pressure support and albumin to prevent intradialytic hypotension and to adva nce ultrafiltration. Patient has fluid overload when she will require ultrafiltration done for volum e control and congestive heart failure management. 2.Atrial fibrillation, on metoprolol for rate control and amiodarone. 3.Congestive heart failure, acute on chronic, fluid overload is the trigger for decompensation. 4.Patient has history of obstructive sleep apnea and she will continue CPAP. 5.Anemia in chronic kidney disease. Continue SABIHA and monitor hemoglobin. 6.Renal osteodystrophy. Continue renal diet and binders. 7.Nausea, vomiting. Check lipase and amylase. Check CT scan of the abdomen and pelvis, if not done . EB/MODL Voice ID: [id number] Report ID: [id number]
[2022-11-12 05:11] LABS: Absolute Lymphocytes (CBC) 0.5 K/uL (0.7-4.9); Hematocrit 27.3 % (36.0-45.0); Lymphocytes % 5.3 % (15.3-44.8); MCV 99.2 fL (80-100); MPV 8.1 fL (7.6-11.3); RBC Red Blood Cell Count 2.76 M/uL (3.86-4.86)
[2022-11-12 05:39] LABS: Albumin 3.1 g/dL (3.4-5.0); Potassium 3.8 mmol/L (3.5-5.1); Protein, Total 6.6 g/dL (6.4-8.2)
[2022-11-12] MEDS: IBUPROFEN 600 MG TAB PO SCH ×4 (06:00→17:34)
[2022-11-12] MEDS: FOLIC ACID 1 MG TABLET PO SCH (08:54)
[2022-11-12] MEDS: MIDODRINE HCL 5 MG TABLET PO SCH ×3 (08:54→21:30)
[2022-11-12] MEDS: AMIODARONE HCL 200 MG TAB PO SCH ×2 (08:54→21:20)
[2022-11-12] MEDS: SODIUM ZIRCONIUM CYCLOSILICATE 10 GM/PKT PO SCH ×3 (08:54→21:20)
[2022-11-12] MEDS: METOPROLOL TAR 25 MG TAB PO SCH ×2 (08:55→21:00)
[2022-11-12] MEDS: APIXABAN 2.5 MG TABLET PO SCH ×2 (08:55→21:20)
[2022-11-12] MEDS: PANTOPRAZOLE 40MG TABLET PO SCH (08:55)
[2022-11-12] MEDS: SEVELAMER CARBONATE 800 MG TABLET PO SCH ×3 (08:55→21:19)
[2022-11-12] MEDS: HOME MED 1 EA UNK (Brimonidine Tartrate [Alphagan P] 10 ML Drops) OPTH SCH ×2 (08:56→21:00)
--- NOTE | 2022-11-12 09:35 | RAD REPORT ---
EXAM DESCRIPTION: CT - Stone Protocol - 11/12/2022 8:01 am CLINICAL HISTORY: Flank pain. nausea , vomiting , back pain COMPARISON: Abdomen Pelvis Wo Contrast dated 11/04/2022 TECHNIQUE: Axial images were obtained without oral or IV contrast. Lack of contrast limits solid org an and vascular assessment. The [id number] spans the entirety of the system partially obscuring uppermost abdomen and lung bases. Coronal reformatted images were obtained and reviewed. All CT scans are performed using dose optimization technique as appropriate and may include automated exposure control or mA/KV adjustment according to patient size. FINDINGS: Mild atelectasis is present in both lung bases. Trace bilateral pleural fluid. Cardiac siz e is prominent. Liver size is prominent.Fluid density collection inferior to the right hepatic edge is unchanged luis uring approximately 14 cm. The spleen, adrenal glands and pancreas are within normal limits. Several stones are noted in the left kidney. In addition there is a 11 mm stone proximal left ureter resultin g in moderate left hydronephrosis. Somewhat irregularly-shaped lesion posteroinferior left kidney aga in seen measuring 20 mm. No hydronephrosis right kidney. Multiple cysts are present. No bowel obstruction, free air, free fluid or abscess. Nonvisualized appendix.Cholecystectomy. Mild lumbar degenerative changes. IMPRESSION: 11 mm stone proximal left ureter with moderate left hydronephrosis. Additional stones inferior posterior calyx left kidney.
[2022-11-12] MEDS: ONDANSETRON 4 MG/2 ML VIAL IV PRN (16:02)
--- NOTE | 2022-11-12 16:10 | P.PN ---
Subjective Date of Service: 11/12/22 Primary Care Provider: Fco Chief Complaint: fluid overload Subjective: No new changes Review of Systems 10-point ROS is otherwise unremarkable Gastrointestinal: Abdominal Pain Physical Examination - Vital Signs Temperature: 97.3 F Blood Pressure: 102/82 Pulse: 85 Respirations: 26 Pulse Ox (%): 95 - Physical Exam General: Alert, In no apparent distress HEENT: Atraumatic, PERRLA, EOMI Neck: Supple, JVD not distended Respiratory: Clear to auscultation bilaterally, Normal air movement Cardiovascular: Regular rate/rhythm, Normal S1 S2 Gastrointestinal: Normal bowel sounds, No tenderness Musculoskeletal: No tenderness Integumentary: No rashes Neurological: Normal speech, Normal tone, Normal affect Lymphatics: No axilla or inguinal lymphadenopathy - Studies Microbiology Data (last 24 hrs): 11/10/22 21:48 Blood - Blood Anaerobic Blood Culture - Final Assessment And Plan - Current Problems (Diagnosis) (1) Left renal stone Current Visit: Yes Status: Chronic Plan: consult to Dr. Sunitha Walsh. He most likely will see her Sunday night or Sunday morning. Will start her on flomax and work on pain management (2) ESRD (end stage renal disease) on dialysis Current Visit: No Status: Chronic Plan: restart dialysis with Dr. Powers's group. (3) Atrial fibrillation Current Visit: No Status: Acute Plan: continue amiodarone and metoprolol Qualifiers: Qualified Code(s): I48.20 - Chronic atrial fibrillation, unspecified; I48.2 - Chronic atrial fibrillation (4) CHF (congestive heart failure) Current Visit: No Status: Chronic Plan: will continue metoprolol. She should be on a nocturnal cpap for her sleep apnea. However the patient is not compliant. She comes in several times and requires positive pressure ventilation. She take it off as soon as she wakes up and refuses it. Qualifiers: Heart failure type: diastolic Heart failure chronicity: chronic Qualified Code(s): I50.32 - Chronic diastolic (congestive) heart failure (5) Non-compliance with renal dialysis Current Visit: No Status: Chronic Plan: Patient is poorly compliant with her treatment. Of course she has chf and esrd. A very poor detention prognosis. She most likely has very poor quality of life. Which would make her non-compliance understandable. Discharge Plan: Home Plan to discharge in: Greater than 2 days - Code Status/Comfort Care Code Status Assessed: No Physician Review: Patient Assessed, Agree with Above Assessment and Plan Critical Care: No Time Spent Managing PTS Care (In Minutes): 20
[2022-11-12] MEDS: GABAPENTIN 300 MG CAP PO SCH (21:20)
[2022-11-12] MEDS ORDERED: GENTAMICIN 80 MG/100 ML BAG 80 MG/100 ML BAG IV ONE (21:47)
[2022-11-12] MEDS ORDERED: VANCOMYCIN 1 GM in NA CHLORIDE 0.9% 250 ML IVPB ONE (22:30)
[2022-11-12] MEDS ORDERED: VANCOMYCIN 2.75 GM in NA CHLORIDE 0.9% 500 ML IVPB ONE (22:30)
--- NOTE | 2022-11-12 22:30 | PN ---
Date of Progress Note: 11/12/2022 Chief Complaint: End-stage renal disease, chronic hypotension, severe hypotension. Subjective: The patient is in ICU. She received dialysis yesterday with ultrafiltration. Midodrine was used for blood pressure support. The patient came to the hospital because of generalized weakness, nausea, vomiting, and progressively worse hypotension. Blood cultures were obtained and pending. The patient had CT scan for stone protocol done and it showed left kidney stone and hydronephrosis. Urine specimen was obtained for culture and is pending. Review of Systems: The patient has generalized weakness. Cannot provide review of systems. Physical Examination: Lungs: Normal respiratory effort. Heart: S1, S2. Abdomen: Soft. Extremities: Slight edema. Impression And Plan: 1. End-stage renal disease. Next dialysis is scheduled for tomorrow. 2. Left kidney stone hydronephrosis. Continue broad-spectrum antibiotics and continue to monitor culture. Adjust antibiotic accordingly. Urine culture is obtained. Continue coverage for broad spectrum. 3. Congestive heart failure, diastolic. The patient is on low dose of metoprolol. Monitor blood pressure closely. 4. Sleep apnea. Continue CPAP. 5. Anemia of chronic kidney disease. Monitor hemoglobin level. Adjust SABIHA. 6. Renal osteodystrophy. Monitor phosphorus level and adjust binders. EB/MODL Voice ID: [id number] Report ID: [id number] SONDRA
[2022-11-12] MEDS ORDERED: NA CHLORIDE 0.9% IVPB SCH (23:00)
[2022-11-12] MEDS ORDERED: GENTAMICIN IVPB SCH (23:00)
[2022-11-12] MEDS ORDERED: GENTAMICIN 80 MG/100 ML BAG 0 MG/0 ML BAG IV ONE (23:13)
[2022-11-12] MEDS ORDERED: VANCOMYCIN 1 GM/VIAL ONE (23:18)
[2022-11-12] MEDS ORDERED: NA CHLORIDE 0.9% 500 ML ONE (23:19)
[2022-11-12] MEDS ORDERED: WATER FOR INJ STERILE ONE (23:20)
[2022-11-12] MEDS ORDERED: GENTAMICIN SULF 80 MG/2ML INJ ONE (23:25)
[2022-11-12] MEDS ORDERED: NA CHLORIDE 0.9% 200 ML ONE (23:30)
[2022-11-13] MEDS: IBUPROFEN 600 MG TAB PO SCH ×4 (06:00→18:22)
[2022-11-13 06:04] LABS: Potassium 3.8 mmol/L (3.5-5.1); Protein, Total 6.8 g/dL (6.4-8.2)
--- NOTE | 2022-11-13 08:17 | P.PN ---
Subjective Date of Service: 11/13/22 Primary Care Provider: Fco Chief Complaint: fluid overload Subjective: No new changes Review of Systems Unremarkable Physical Examination - Vital Signs Temperature: 97.2 F Blood Pressure: 113/58 Pulse: 102 Respirations: 20 Pulse Ox (%): 95 - Physical Exam General: Alert, In no apparent distress HEENT: Atraumatic, PERRLA, EOMI Neck: Supple, JVD not distended Respiratory: Clear to auscultation bilaterally, Normal air movement Cardiovascular: Regular rate/rhythm, Normal S1 S2 Gastrointestinal: Normal bowel sounds, No tenderness Musculoskeletal: No tenderness Integumentary: No rashes Neurological: Normal speech, Normal tone, Normal affect Lymphatics: No axilla or inguinal lymphadenopathy Assessment And Plan - Current Problems (Diagnosis) (1) Left renal stone Current Visit: Yes Status: Chronic Plan: consult to Dr. Sunitha Walsh. He most likely will see her Sunday night or Sunday morning. Will start her on flomax and work on pain management (2) ESRD (end stage renal disease) on dialysis Current Visit: No Status: Chronic Plan: restart dialysis with Dr. Powers's group. (3) Atrial fibrillation Current Visit: No Status: Acute Plan: continue amiodarone and metoprolol Qualifiers: (4) CHF (congestive heart failure) Current Visit: No Status: Chronic Plan: will continue metoprolol. She should be on a nocturnal cpap for her sleep apnea. However the patient is not compliant. She comes in several times and requires positive pressure ventilation. She take it off as soon as she wakes up and refuses it. Qualifiers: Heart failure type: diastolic Heart failure chronicity: chronic Qualified Code(s): I50.32 - Chronic diastolic (congestive) heart failure (5) Non-compliance with renal dialysis Current Visit: No Status: Chronic Plan: Patient is poorly compliant with her treatment. Of course she has chf and esrd. A very poor filler mixer prognosis. She most likely has very poor quality of life. Which would make her non-compliance understandable. Discharge Plan: Home Plan to discharge in: 48 Hours - Code Status/Comfort Care Code Status Assessed: No Physician Review: Patient Assessed, Agree with Above Assessment and Plan Critical Care: No Time Spent Managing PTS Care (In Minutes): 20
[2022-11-13] MEDS: PANTOPRAZOLE 40MG TABLET PO SCH (09:00)
[2022-11-13] MEDS: METOPROLOL TAR 25 MG TAB PO SCH ×2 (09:00→21:00)
[2022-11-13] MEDS: HOME MED 1 EA UNK (Brimonidine Tartrate [Alphagan P] 10 ML Drops) OPTH SCH ×2 (09:00→21:00)
[2022-11-13] MEDS: APIXABAN 2.5 MG TABLET PO SCH (09:00)
[2022-11-13] MEDS: SODIUM ZIRCONIUM CYCLOSILICATE 10 GM/PKT PO SCH ×3 (09:00→21:00)
--- NOTE | 2022-11-13 10:06 | RAD REPORT ---
EXAM DESCRIPTION: CT - Ct Stroke Brain Wo Cont - 11/13/2022 9:58 am CLINICAL HISTORY: Stroke Protocol Headache, drowsiness, CVA symptomology COMPARISON: Head Brain Wo Cont dated 11/04/2022 TECHNIQUE: All CT scans are performed using dose optimization technique as appropriate and may inclu de automated exposure control or mA/KV adjustment according to patient size. FINDINGS: No intracranial hemorrhage, hydrocephalus or extra-axial fluid collection.No areas of brai n edema or evidence of midline shift. 2 cm mucous retention cyst or polyp right maxillary antrum. Paranasal sinuses mastoids are otherwise clear. The calvarium is intact. IMPRESSION: No acute intracranial abnormality. The findings were discussed with nurse caring for the patient on the second floor on 11/13/2022 at 1 0 a.m. by telephone.
[2022-11-13 10:30] LABS: Absolute Lymphocytes (CBC) 0.8 K/uL (0.7-4.9); Hematocrit 29.7 % (36.0-45.0); Lymphocytes % 8.1 % (15.3-44.8); MCV 100.9 fL (80-100); MPV 8.1 fL (7.6-11.3); RBC Red Blood Cell Count 2.95 M/uL (3.86-4.86)
[2022-11-13 10:35] LABS: Protime INR 1.55
[2022-11-13] MEDS ORDERED: HEPARIN 5000 UNIT/ML 1 ML VIAL IV ONE (10:55)
[2022-11-13] MEDS: TAMSULOSIN 0.4 MG SR CAP PO SCH (11:26)
[2022-11-13] MEDS: FOLIC ACID 1 MG TABLET PO SCH (11:26)
[2022-11-13] MEDS: SEVELAMER CARBONATE 800 MG TABLET PO SCH ×3 (11:26→21:00)
[2022-11-13] MEDS: AMIODARONE HCL 200 MG TAB PO SCH ×2 (11:27→21:00)
[2022-11-13] MEDS: MIDODRINE HCL 5 MG TABLET PO SCH ×3 (11:33→21:00)
--- NOTE | 2022-11-13 11:39 | RAD REPORT ---
EXAM DESCRIPTION: CT - Head angio - 11/13/2022 11:20 am CLINICAL HISTORY: s/p code stroke Headache, drowsiness, CVA symptomology COMPARISON: Ct Stroke Brain Wo Cont dated 11/13/2022; Head Brain Wo Cont dated 11/04/2022; Neck Angio dated 11/13/2022 TECHNIQUE: CT angiography of the head was performed with MIPs. All CT scans are performed using dose optimization technique as appropriate and may include automated exposure control or mA/KV adjustment according to patient size. FINDINGS: No evidence of aneurysm is detected. No flow-limiting stenosis or vascular malformation id entified. No large vessel occlusion evident. Antegrade flow is seen in the vertebral arteries. The vertebral arteries are codominant. The visualized dural venous sinuses are patent. IMPRESSION: No significant flow abnormality is detected.
--- NOTE | 2022-11-13 11:41 | RAD REPORT ---
EXAM DESCRIPTION: CT - Neck Angio - 11/13/2022 11:22 am CLINICAL HISTORY: s/p code stroke Headache, drowsiness, CVA symptomology COMPARISON: No comparisons TECHNIQUE: CT angiography of the neck vessels was performed with MIPs. All CT scans are performed using dose optimization technique as appropriate and may include automated exposure control or mA/KV adjustment according to patient size. FINDINGS: A left aortic arch is identified with normal three vessel configuration of the great vesse ls. No significant flow abnormality is seen of the common carotid bilaterally. Atherosclerotic plaque is present involving the right carotid bulb. Luminal narrowing is estimated le ss than 50% based on NASCET criteria. No significant left-sided carotid stenosis. Normal flow is seen within both vertebral arteries. IMPRESSION: Stenosis of less than 50% based on NASCET criteria involves the right carotid bulb.
[2022-11-13] MEDS: ALBUMIN HUMAN 25% 100 ML IV ONE ×3 (12:22→13:04)
[2022-11-13 12:25] LABS: Anisocytosis 1+; Blood Morphology Comment NOTED (NOT SEEN); Macrocytosis SLIGHT; Platelet Estimate DECR; Poikilocytosis SLIGHT; Polychromasia SLIGHT
[2022-11-13] MEDS: HEPARIN/D5W 25,000 UNIT/500 ML BAG IV SCH (12:57)
[2022-11-13] MEDS ORDERED: ALBUTEROL 2.5 MG/3 ML NEB SOL NEB PRN (14:00)
[2022-11-13] MEDS ORDERED: IPRATROPIUM BROM 0.5MG/2.5ML NEB PRN (14:00)
[2022-11-13] MEDS: EPOETIN 4,000 UNIT/ML VIAL IV SCH (14:15)
--- NOTE | 2022-11-13 16:59 | EKG ---
Test Date: 2022-11-10 Test Time: 19:38:55 Petroleum Analyst: NICOALS MEASUREMENT RESULTS: Intervals: Rate: 82 ME: QRSD: 106 QT: 396 QTc: 462 [place]: P: ME: QRS: 115 T: -80 INTERPRETIVE STATEMENTS: Atrial fibrillation Right axis deviation Incomplete right bundle branch block Possible Right ventricular hypertrophy Nonspecific T wave abnormality, probably digitalis effect Abnormal ECG Compared to ECG 11/04/2022 09:29:07 No significant changes Electronically Signed On 11-13-22 16:55:53 SCIENCE WRITER by Quentin Chamberlain
[2022-11-13] MEDS: GABAPENTIN 300 MG CAP PO SCH (21:00)
--- NOTE | 2022-11-13 23:04 | P.PN ---
Date of Service: 11/13/22 Code stroke was called this morning. Nursing staff noted that patient was significantly weaker in b/l upper extremities. Patient just returned from stat CT head. Symptoms seems to be improving already per nursing staff. NIHSS: 8 limb ataxia bilaterally bilateral arms and legs weak, arms weaker, right side slightly weaker in comparison to left normal speech, normal sensation, no vision loss CT head done, negative CTA head/neck Neuro consulted PCP alerted repeat labs risk stratification
--- NOTE | 2022-11-14 00:06 | PN ---
Chief Complain: End-stage renal disease and hypotension. Subjective: The patient was admitted to ICU for hypotension. She has history of congestive heart fa ilure, diastolic dysfunction, obesity, and obstructive sleep apnea. Blood cultures were obtained and pending. CT scan for stone protocol showed left kidney stone and hydronephrosis. Urology is consul yahir. Urine specimen was obtained for culture. The patient was started on gentamicin. Of note, the patient has multiple allergies and Infectious Disease was consulted. Review of Systems: Denies complaints although she developed right-sided weakness of upper extremity and workup is starte d with Neurology for possible stroke. She denies chest pain or palpitations. Denies syncope. Physical Examination: Lungs: Normal respiratory effort. Heart: S1, S2. Abdomen: Soft, obese. Extremities: Slight edema. Impression And Plan: 1.End-stage renal disease. The patient underwent CTA today. Continue dialysis after IV contrast ex posure. The patient will have dialysis today. 2.Left kidney stone with hydronephrosis. The patient will continue antibiotics for broad spectrum c overage. Adjust antibiotic and monitor vancomycin and gentamicin level. 3.Congestive heart failure, diastolic. The patient is on low dose of metoprolol. Monitor blood pre ssure closely. 4.Obstructive sleep apnea. Continue CPAP. 5.Anemia of chronic kidney disease. Monitor hemoglobin level. Adjust SABIHA. 6.Renal osteodystrophy. Continue binders and adjust medication according to lab results. BHUPENDRA/KWAN Voice ID: [id number] Report ID: [id number]
[2022-11-14] MEDS: MIDODRINE HCL 5 MG TABLET PO SCH ×4 (00:21→20:08)
[2022-11-14 05:20] LABS: Gentamicin Level, Trough 2.9 ug/mL (0-2.0)
[2022-11-14] MEDS: IBUPROFEN 600 MG TAB PO SCH ×5 (06:00→23:52)
[2022-11-14] MEDS: HEPARIN/D5W 25,000 UNIT/500 ML BAG IV SCH (07:12)
--- NOTE | 2022-11-14 07:33 | P.CNS ---
Primary Care Provider: Fco Chief Complaint: fluid overload History of Present Illness: Patient is a 64-year-old female with history of CHF and ESRD presented to the ER unresponsive and febrile. She did not know why she was here, per medical record. She was very lethargy and had difficulty to remain alert upon ID's examination. Most of the information was obtained through medical records and MD notes. Per CT, pt has 11 mm stone proximal left ureter with moderate left hydronephrosis ID has been consulted for fever and possible urosepsis. Allergies cefepime Allergy (Verified 11/11/22 04:23) Hives codeine Allergy (Verified 11/11/22 04:23) Itching levofloxacin Allergy (Verified 11/11/22 04:23) Hives/Rash morphine Allergy (Verified 11/11/22 04:23) Itching Penicillins Allergy (Verified 11/11/22 04:23) Hives/Rash promethazine [From Phenergan] Allergy (Verified 11/11/22 10:03) Nausea/Vomiting sulfamethoxazole [From Bactrim] Allergy (Verified 11/11/22 04:23) Hives trimethoprim [From Bactrim] Allergy (Verified 11/11/22 04:23) Hives Home Medications: Apixaban [Eliquis] 2.5 mg PO BID 05/19/22 Bumetanide 2 tab PO DAILY 05/19/22 Midodrine HCl 5 mg PO TID 05/19/22 Pantoprazole [Protonix Tab*] 1 tab PO DAILY 05/19/22 Sevelamer Carbonate [Renvela] 800 mg PO TID 05/19/22 Amiodarone HCl [Cordarone*] 200 mg PO BID 90 Days #180 tab 10/20/22 Alendronate Sodium 70 mg PO MO 10/25/22 Gabapentin 300 mg PO BEDTIME 10/25/22 Promethazine Tab [Phenergan*] 25 mg PO Q6HP PRN 30 Days #90 tab 10/26/22 Brimonidine Tartrate [Alphagan P] 1 drop EACH EYE BID 11/05/22 Metoprolol Tartrate [Lopressor*] 12.5 mg PO BID 11/05/22 Minocycline HCl [Minocin] 1 tab PO BID 11/05/22 - Past Medical/Surgical History Diabetic: No -: Chronic hypotension -: Hyperlipidemia -: Chronic anticoagulation use -: History of nephrolithiasis requiring stent placement -: Recurrent UTI -: End-stage renal disease -: CHF -: HTN -: A-Fib -: tubal ligation -: dialysis port -: cholecystectomy -: right broken wrist -: lasik -: cataracts removed -: back surgery - Family History Sister Medical History: Cancer Notes: per pt, sister has lung cancer and is being treated for a "spot on her brain" Father Medical History: Lung disease - Social History Smoking Status: Unknown if ever smoked Alcohol use: No CD- Drugs: No Caffeine use: Yes Place of Residence: Home Review of Systems is unable to be obtained (patient is very lethargy and unable to obtain clear information) Physical Examination Temp Pulse Resp BP Pulse Ox 97.0 F 86 18 89/50 L 98 11/13/22 16:00 11/13/22 21:00 11/13/22 16:00 11/13/22 21:00 11/13/22 16:00 General: Other (lethargy and ill-looking) Respiratory: Clear to auscultation bilaterally Cardiovascular: No edema, Normal S1 S2 Gastrointestinal: Normal bowel sounds Musculoskeletal: Swelling (+1 edema lower legs) Integumentary: Other (stasis dermatitis of LEs) Neurological: Other (lethargy) Urinary: Dialysis catheter Albuterol Sulfate (Albuterol 2.5 Mg/3 Ml Neb Patito) 2.5 mg NEB [id number] PRN PRN Reason: WHEEZING Amiodarone HCl (Amiodarone Hcl 200 Mg Tab) 200 mg PO BID [facility] Last Admin: 11/13/22 21:00 Dose: Not Given Epoetin Mahesh (Epoetin 4,000 Unit/Ml Vial) 4,000 unit IV EVERY HD [facility] Last Admin: 11/13/22 14:15 Dose: 4,000 unit Folic Acid (Folic Acid 1 Mg Tablet) 1 mg PO DAILY [facility] Last Admin: 11/13/22 11:26 Dose: 1 mg Gabapentin (Gabapentin 300 Mg Cap) 300 mg PO BEDTIME [facility] Last Admin: 11/13/22 21:00 Dose: Not Given Heparin Sodium (Porcine) (Heparin 1,000 Unit/Ml Vial) 4,000 unit IV EVERY HD PRN PRN Reason: DIALYSIS CATHETER CARE Last Admin: 11/13/22 15:02 Dose: 4,000 unit Heparin Sodium (Porcine) (Heparin 1,000 Unit/Ml Vial) 0 unit IV PRN PRN PRN Reason: Heparin Re-Bolus Per Protocol Last Admin: 11/13/22 22:18 Dose: 3,000 unit Home Med (Brimonidine Tartrate [Alphagan P]) 1 drop OPTH BID [facility] Last Admin: 11/13/22 21:00 Dose: Not Given Hydromorphone HCl (Hydromorphone Hcl 0.5 Mg/0.5 Ml Inj) 0.5 mg IV Q4H PRN PRN Reason: Pain scale 8-10 (Severe) Last Admin: 11/11/22 16:20 Dose: 0.5 mg Gentamicin Sulfate 190 mg/ (Sodium Chloride) 104.75 mls @ 104.75 mls/hr IVPB Q48H [facility] Last Admin: 11/12/22 23:37 Dose: 104.75 mls Vancomycin HCl 1 gm/ Sodium (Chloride) 250 mls @ 250 mls/hr IVPB AFTER EACH DIALYSIS [facility]; Protocol Heparin Sodium/Dextrose (Heparin Drip 25,000 Units/5oo Ml Premix) 25,000 unit in 500 mls @ 0 mls/hr IV UD [facility]; Protocol Last Admin: 11/14/22 07:12 Dose: 500 mls Ibuprofen (Ibuprofen 600 Mg Tab) 600 mg PO Q6HR [facility] Last Admin: 11/14/22 06:00 Dose: Not Given Ipratropium Downey (Ipratropium Brom 0.5mg/2.5ml) 0.5 mg NEB [id number] PRN PRN Reason: WHEEZING Metoprolol Tartrate (Metoprolol Tar 25 Mg Tab) 12.5 mg PO BID [facility] Last Admin: 11/13/22 21:00 Dose: Not Given Midodrine (Midodrine Hcl 5 Mg Tablet) 10 mg PO TID [facility] Last Admin: 11/14/22 00:21 Dose: 10 mg Ondansetron HCl (Ondansetron 4 Mg/2 Ml Vial) 8 mg IV Q8H PRN PRN Reason: NAUSEA / VOMITING Last Admin: 11/12/22 16:02 Dose: 8 mg Pantoprazole Sodium (Pantoprazole 40mg Tablet) 40 mg PO DAILY [facility]; Protocol Last Admin: 11/13/22 09:00 Dose: Not Given Sevelamer Carbonate (Sevelamer Carbonate 800 Mg Tablet) 800 mg PO TID [facility] Last Admin: 11/13/22 21:00 Dose: Not Given Sodium Chloride (Flush Normal Saline 10 Ml) 10 ml IV BID [facility] Last Admin: 11/13/22 22:19 Dose: 10 ml Tamsulosin HCl (Tamsulosin 0.4 Mg Sr Cap) 0.4 mg PO DAILY [facility] Last Admin: 11/13/22 11:26 Dose: 0.4 mg Microbiology 11/10/22 21:54 Blood - Blood Aerobic Blood Culture - Preliminary No growth in 24 hours. 11/10/22 21:54 Blood - Blood Anaerobic Blood Culture - Preliminary No growth in 24 hours. 11/10/22 21:48 Blood - Blood Aerobic Blood Culture - Preliminary No growth in 24 hours. 11/10/22 21:48 Blood - Blood Anaerobic Blood Culture - Final Imagings Data: Chest xray 11/12: IMPRESSION: No acute lung parenchymal process suspected Chronic right base atelectasis is again noted. There is probably a small right pleural effusion CT stone protocol 11/12: IMPRESSION: 11 mm stone proximal left ureter with moderate left hydronephrosis CT - Head angio 11/13: IMPRESSION: No significant flow abnormality is detected CT - Neck Angio - 11/13: IMPRESSION: Stenosis of less than 50% based on NASCET criteria involves the right carotid bulb CT - Ct Stroke Brain Wo Cont - 11/13 IMPRESSION: No acute intracranial abnormality - Problems (1) Urinary tract infection Current Visit: Yes Status: Acute Plan: - possible urosepsis: Cultures: 11/12 UC: Pending 11/10 Stool: Pending 11/10 Parasites: Pending 11/10 BC: Negative Antibiotics: - IV Gentamicin, 11/12 to - IV Vancomycin s/p HD, 11/12 to Recommendation: ID agrees to continue current IV antibiotics and will provide drug of choice when urine culture is available Conclusions/Impression: - ESRD (end stage renal disease) on dialysis: Nephrology onboard - Left hydronephrosis due to renal stone - Left renal stone: CT: 11 mm stone proximal left ureter with moderate left hydronephrosis - Atrial fibrillation: Managed by Primary team - CHF (congestive heart failure): Managed by primary team - Non-compliance with renal dialysis - Chronic hypotension - Hyperlipidemia - Chronic anticoagulation use - History of nephrolithiasis requiring stent placement - Recurrent UTI - End-stage renal disease - HTN - tubal ligation - cholecystectomy - right broken wrist - cataracts removed - back surgery ID will closely monitoring the patient for signs of infection with fever and WBC trends Case has been discussed with Dr. Wolf N Thank yo Dr. Eagle for consult
[2022-11-14] MEDS: PANTOPRAZOLE 40MG TABLET PO SCH ×2 (07:50→09:00)
[2022-11-14] MEDS: SEVELAMER CARBONATE 800 MG TABLET PO SCH ×4 (07:51→20:09)
[2022-11-14] MEDS: FOLIC ACID 1 MG TABLET PO SCH ×2 (07:51→09:00)
--- NOTE | 2022-11-14 08:28 | P.PN ---
Subjective Date of Service: 11/14/22 Primary Care Provider: Fco Chief Complaint: fluid overload somlent. Going to the ER for stenting today Review of Systems is unable to be obtained Physical Examination - Vital Signs Temperature: 97.0 F Blood Pressure: 89/50 Pulse: 86 Respirations: 18 Pulse Ox (%): 98 - Physical Exam General: Alert, In no apparent distress HEENT: Atraumatic, PERRLA, EOMI Neck: Supple, JVD not distended Respiratory: Clear to auscultation bilaterally, Normal air movement Cardiovascular: Regular rate/rhythm, Normal S1 S2 Gastrointestinal: Normal bowel sounds, No tenderness Musculoskeletal: No tenderness Integumentary: No rashes Neurological: Normal speech, Normal tone, Normal affect Lymphatics: No axilla or inguinal lymphadenopathy Assessment And Plan - Current Problems (Diagnosis) (1) Left renal stone Current Visit: Yes Status: Chronic Plan: consult to Dr. Sunitha Walsh. He most likely will see her Sunday night or Sunday morning. Will start her on flomax and work on pain management plans for stenting today (2) ESRD (end stage renal disease) on dialysis Current Visit: No Status: Chronic Plan: restart dialysis with Dr. Powers's group. (3) Atrial fibrillation Current Visit: No Status: Acute Plan: continue amiodarone and metoprolol Qualifiers: (4) CHF (congestive heart failure) Current Visit: No Status: Chronic Plan: will continue metoprolol. She should be on a nocturnal cpap for her sleep apnea. However the patient is not compliant. She comes in several times and requires positive pressure ventilation. She take it off as soon as she wakes up and refuses it. Qualifiers: Heart failure type: diastolic Heart failure chronicity: chronic Qualified Code(s): I50.32 - Chronic diastolic (congestive) heart failure (5) Non-compliance with renal dialysis Current Visit: No Status: Chronic Plan: Patient is poorly compliant with her treatment. Of course she has chf and esrd. A very poor joint terminal attack controller prognosis. She most likely has very poor quality of life. Which would make her non-compliance understandable. Discharge Plan: Home Plan to discharge in: Greater than 2 days - Code Status/Comfort Care Code Status Assessed: No Physician Review: Patient Assessed, Agree with Above Assessment and Plan Critical Care: No Time Spent Managing PTS Care (In Minutes): 20
[2022-11-14] MEDS: TAMSULOSIN 0.4 MG SR CAP PO SCH (09:00)
[2022-11-14] MEDS: AMIODARONE HCL 200 MG TAB PO SCH ×2 (09:00→20:08)
[2022-11-14] MEDS: METOPROLOL TAR 25 MG TAB PO SCH ×2 (09:00→20:08)
[2022-11-14] MEDS: HOME MED 1 EA UNK (Brimonidine Tartrate [Alphagan P] 10 ML Drops) OPTH SCH ×2 (09:00→20:08)
--- NOTE | 2022-11-14 09:54 | RAD REPORT ---
EXAM DESCRIPTION: RAD - Chest Pa And Lat (2 Views) - 11/14/2022 9:18 am CLINICAL HISTORY: hypoxia COMPARISON: Portable 11/10/2022 and 11/04/2022 TECHNIQUE: Frontal and lateral views of the chest were obtained. FINDINGS: The lungs are underinflated. This is most pronounced on the right where there is again not ed to be pronounced elevation of the right hemidiaphragm. No diffuse pulmonary edema seen though inte rstitial markings and vasculature are slightly increased. There is overall right hemithorax volume re duction with right base atelectasis. A curvilinear air density at the right base is believed to be kristie ng parenchyma and not air under the diaphragm. There is no suspicion for free air under the diaphragm on the lateral projection. Right apical opacification is present similar to prior imaging. This could be pleural thickening or p leural fluid. This is a stable finding. Double-lumen dialysis catheter is in place on the left. Loop recorder overlies the lower left lung fi eld. Heart size is prominent but unchanged. No pneumothorax or enlarging pleural effusion. IMPRESSION: Low lung volume examination showing a slight increase in interstitial opacification and central vasculature. Mild failure or volume overload is suspected.
--- NOTE | 2022-11-14 10:17 | CON ---
Reason For Consultation: Obstructive ureterolithiasis. History Of Present Illness: Ms. De Jesus is a 67-year-old woman with a longstanding history of end-sta ge renal disease requiring dialysis Sunday, , and Sunday. She has a history of occasional ly missing her dialysis sessions potentially due to noncompliance, and she has been frequently admitt ed in the past for volume overload. She presented with a similar set of complaints on this admission in addition to the complaints of some pain, nonspecific in nature and duration, as well as diarrhea. The patient was largely nonresponsive during my visit with them, but her son was at the bedside and did respond and consent on her behalf. She apparently was also unresponsive when she came to the em ergency department, and her primary care physician, Dr. Eagle, noted that she was awake and off BiPAP when he saw her the next morning. At the time of my visit, she was again nonresponsive and again re quiring BiPAP. Again, it is unclear if she had any new/acute pain associated with the presence of a stone that was observed on CT scan, the son suggested perhaps a week of some pain that may have been present. Past Medical History: 1.Congestive heart failure. 2.End-stage renal disease requiring dialysis. 3.GERD, trauma, cardiac arrhythmia, Eliquis dependent/atrial fibrillation. Allergies: SHE LISTS ALLERGIES TO CEFEPIME, LEVAQUIN, PENICILLINS, SULFAMETHOXAZOLE/BACTRIM AND TRIM ETHOPRIM, ALL HIVES WITH ITCHING/INTOLERANCE TO CODEINE AND MORPHINE. Family History: Unable to obtain. Social History: Unable to obtain. Physical Examination: The patient was not nonresponsive. Her breathing was somewhat labored with use of BiPAP. She was mo rbidly obese. Her abdomen was soft and there was no evidence of tenderness. No CVA tenderness was e licited. Positive lower extremity edema, nonpitting with no Ruelas sign elicited. All of the above limited due to the degree of the patient's responsiveness/diminished mental status. Laboratory Analysis: From 11/10/2022; pH 7.1 with a bicarb of 17.1, both low. WBC 14.1 with hemoglo bin and hematocrit 9.9/33.5, platelets 179K. INR 1.87, creatinine 8.87. She currently is on a hepar in drip with a PTT ratio around 2.5 to 3 being held. 11/12/2022, CT stone protocol findings: Mild atelectasis bilaterally lung bases. Prominent cardiac size. Fluid density collection inferior to the right hepatic edge, unchanged from prior, measured ap proximately 14 cm. The spleen, adrenals, and pancreas within normal limits. Several stones noted wi thin the left kidney with an 11 mm proximal left ureteral calculus resulting in moderate left hydrone phrosis. Somewhat irregular shaped lesion posteroinferior left kidney again seen, measuring 20 mm. Right kidney without hydronephrosis, but with multiple cysts present. Assessment And Recommendations: This is a 67-year-old woman with atrial fibrillation, on Eliquis, no w on heparin drip with PTT ratio 2.5 to 3 being held, on amiodarone also for atrial fibrillation, chr onic kidney disease dialysis dependent, and gastroesophageal reflux disease, who presents acidotic an d nonresponsive associated with an obstructing 11 mm left proximal ureteral calculus. 1.While it is clear from my discussions with Dr. Eagle, that the patient does not produce much urine on a routine basis and these changes may indeed be chronic, given the obstruction which could potent ially destabilize her acid-base balance and potentially volume status, I would recommend operative ma nagement to relieve the obstruction. 2.I counseled the patient's son on her behalf, since the patient was unresponsive, on the potential to be unable to successfully pass the ureteral stent and the potential need for percutaneous nephrost trey tube depending on the impaction of the stone. I explained that definitive management of the ston e would require subsequent operative intervention as we would not do it in the setting of her acute d ecompensation. I explained the detailed nature of the procedure to be performed and he expressed und erstanding and willingness to consent on her behalf. 3.Hold heparin drip pending surgical intervention for cystoscopy, left retrograde pyelography and st ent placement this afternoon. WR/MODL Voice ID: [id number] Report ID: [id number]
--- NOTE | 2022-11-14 10:29 | P.PN ---
Subjective Date of Service: 11/14/22 Primary Care Provider: Fco Chief Complaint: fluid overload patient lying in bed with at the bedside. No major event upon examination. Physical Examination - Vital Signs Temperature: 97.0 F Blood Pressure: 89/50 Pulse: 86 Respirations: 18 Pulse Ox (%): 98 - Physical Exam General: Alert, In no apparent distress, Oriented x3 Respiratory: Crackles/rales (all tovar on 8 L of oxygen, NC) Cardiovascular: No edema, Normal S1 S2 Gastrointestinal: Normal bowel sounds Musculoskeletal: Other (stasis dermatitis) Integumentary: Other (stasis dermatitis) Neurological: Normal speech, Normal tone, Normal affect - Studies Albuterol Sulfate (Albuterol 2.5 Mg/3 Ml Neb Patito) 2.5 mg NEB [id number] PRN PRN Reason: WHEEZING Amiodarone HCl (Amiodarone Hcl 200 Mg Tab) 200 mg PO BID [facility] Last Admin: 11/13/22 21:00 Dose: Not Given Epoetin Mahesh (Epoetin 4,000 Unit/Ml Vial) 4,000 unit IV EVERY HD [facility] Last Admin: 11/13/22 14:15 Dose: 4,000 unit Folic Acid (Folic Acid 1 Mg Tablet) 1 mg PO DAILY [facility] Last Admin: 11/13/22 11:26 Dose: 1 mg Gabapentin (Gabapentin 300 Mg Cap) 300 mg PO BEDTIME [facility] Last Admin: 11/13/22 21:00 Dose: Not Given Heparin Sodium (Porcine) (Heparin 1,000 Unit/Ml Vial) 4,000 unit IV EVERY HD PRN PRN Reason: DIALYSIS CATHETER CARE Last Admin: 11/13/22 15:02 Dose: 4,000 unit Heparin Sodium (Porcine) (Heparin 1,000 Unit/Ml Vial) 0 unit IV PRN PRN PRN Reason: Heparin Re-Bolus Per Protocol Last Admin: 11/13/22 22:18 Dose: 3,000 unit Home Med (Brimonidine Tartrate [Alphagan P]) 1 drop OPTH BID [facility] Last Admin: 11/13/22 21:00 Dose: Not Given Hydromorphone HCl (Hydromorphone Hcl 0.5 Mg/0.5 Ml Inj) 0.5 mg IV Q4H PRN PRN Reason: Pain scale 8-10 (Severe) Last Admin: 11/11/22 16:20 Dose: 0.5 mg Gentamicin Sulfate 190 mg/ (Sodium Chloride) 104.75 mls @ 104.75 mls/hr IVPB Q48H [facility] Last Admin: 11/12/22 23:37 Dose: 104.75 mls Vancomycin HCl 1 gm/ Sodium (Chloride) 250 mls @ 250 mls/hr IVPB AFTER EACH DIALYSIS [facility]; Protocol Heparin Sodium/Dextrose (Heparin Drip 25,000 Units/5oo Ml Premix) 25,000 unit in 500 mls @ 0 mls/hr IV UD [facility]; Protocol Last Admin: 11/14/22 07:12 Dose: 500 mls Ibuprofen (Ibuprofen 600 Mg Tab) 600 mg PO Q6HR [facility] Last Admin: 11/14/22 06:00 Dose: Not Given Ipratropium [place] (Ipratropium Brom 0.5mg/2.5ml) 0.5 mg NEB [id number] PRN PRN Reason: WHEEZING Metoprolol Tartrate (Metoprolol Tar 25 Mg Tab) 12.5 mg PO BID [facility] Last Admin: 11/13/22 21:00 Dose: Not Given Midodrine (Midodrine Hcl 5 Mg Tablet) 10 mg PO TID [facility] Last Admin: 11/14/22 07:50 Dose: 10 mg Ondansetron HCl (Ondansetron 4 Mg/2 Ml Vial) 8 mg IV Q8H PRN PRN Reason: NAUSEA / VOMITING Last Admin: 11/12/22 16:02 Dose: 8 mg Pantoprazole Sodium (Pantoprazole 40mg Tablet) 40 mg PO DAILY [facility]; Protocol Last Admin: 11/13/22 09:00 Dose: Not Given Sevelamer Carbonate (Sevelamer Carbonate 800 Mg Tablet) 800 mg PO TID [facility] Last Admin: 11/13/22 21:00 Dose: Not Given Sodium Chloride (Flush Normal Saline 10 Ml) 10 ml IV BID [facility] Last Admin: 11/13/22 22:19 Dose: 10 ml Tamsulosin HCl (Tamsulosin 0.4 Mg Sr Cap) 0.4 mg PO DAILY [facility] Last Admin: 11/13/22 11:26 Dose: 0.4 mg Microbiology 11/10/22 21:54 Blood - Blood Aerobic Blood Culture - Preliminary No growth in 24 hours. 11/10/22 21:54 Blood - Blood Anaerobic Blood Culture - Preliminary No growth in 24 hours. 11/10/22 21:48 Blood - Blood Aerobic Blood Culture - Preliminary No growth in 24 hours. 11/10/22 21:48 Blood - Blood Anaerobic Blood Culture - Final Assessment And Plan - Current Problems (Diagnosis) (1) Urinary tract infection Current Visit: Yes Status: Acute Plan: - possible urosepsis: Cultures: 11/14 BC: Pending 11/12 UC: Pending 11/10 Stool: Pending 11/10 Parasites: Pending 11/10 BC: Negative Antibiotics: - IV Gentamicin, 11/12 to - IV Vancomycin s/p HD, 11/12 to Recommendation: ID agrees to continue current IV antibiotics and will provide drug of choice when urine culture is available Left renal stone: CT: 11 mm stone proximal left ureter with moderate left hydronephrosis. Possible stent placement - Plan - ESRD (end stage renal disease) on dialysis: Nephrology onboard - Left hydronephrosis due to renal stone - Left renal stone: CT: 11 mm stone proximal left ureter with moderate left hydronephrosis. Possible stent placement - Atrial fibrillation: Managed by Primary team - CHF (congestive heart failure): Managed by primary team - Non-compliance with renal dialysis - Chronic hypotension - Hyperlipidemia - Chronic anticoagulation use - History of nephrolithiasis requiring stent placement - Recurrent UTI - End-stage renal disease - HTN - tubal ligation - cholecystectomy - right broken wrist - cataracts removed - back surgery ID will closely monitoring the patient for signs of infection with fever and WBC trends Case has been discussed with Dr. Wolf N Physician Review: Patient Assessed, Agree with Above Assessment and Plan
[2022-11-14] MEDS ORDERED: NA CHLORIDE 0.9% 500 ML ONE (14:00)
--- NOTE | 2022-11-14 14:18 | PN ---
Date of Progress Note: 11/14/2022 Subjective: The patient was admitted with overvolume, shortness of breath. The patient could not to lerate CPAP as an outpatient. Patient missed dialysis on because of the diarrhea. Physical Examination: Vital Signs: Blood pressure of 105/52, pulse of 80, and afebrile. Chest: Decreased entry, bilateral base, with crackles on the left side. Heart: S1, S2. Systolic murmur. Abdomen: Soft, nontender. Morbidly obese. Could not appreciate any organomegaly. Extremities: +1 edema. Neurologic: Alert. No focality. Laboratory Data: Hemoglobin 9.1. Sodium 140, potassium 4, bicarb 26, BUN 62, creatinine 8.8, calciu m 8.6. Current Medications: The patient on include: 1.Midodrine 10 t.i.d. 2.Epogen. 3.Amiodarone. 4.Metoprolol 12.5 b.i.d. 5.Ibuprofen 600 t.i.d. 6.Gabapentin 300 at night. 7.Renvela. 8.Gentamicin. 9.Pantoprazole. Assessment And Plan: 1.End-stage renal disease, overvolume, status post dialysis yesterday. Patient had low blood pressu re. I am going to try to continue dialysis on a daily basis to establish better volume control for t he patient and we will follow up. The patient will keep challenging. 2.Hypertension, currently blood pressure on the lower side. Continue midodrine. We will follow up. 3.Chronic obstructive pulmonary disease exacerbation. We will follow up with Pulmonary. 4.Congestive heart failure exacerbation. We will continue dialysis in a daily basis. 5.Obstructive uropathy with hydronephrosis. Plan for stenting today. We will follow up with Urolog y. JOVANY/MONSERRATL Voice ID: [id number] Report ID: [id number]
[2022-11-14] MEDS ORDERED: KETAMINE HCL 500 MG/5 ML VIAL ONE (14:46)
[2022-11-14] MEDS ORDERED: FENTANYL CITR 100 MCG/2 ML ONE (14:47)
[2022-11-14] MEDS ORDERED: MIDAZOLAM HCL 2 MG/2 ML INJ ONE (14:47)
[2022-11-14] MEDS ORDERED: ONDANSETRON 4 MG/2 ML VIAL ONE (14:47)
[2022-11-14] MEDS ORDERED: EPHEDRINE SULF 50 MG/ML VIAL ONE (14:49)
[2022-11-14] MEDS ORDERED: Phenylephrine HCl 10 MG/ML 1 ML VIAL ONE (14:50)
[2022-11-14] MEDS ORDERED: NA CHLORIDE 0.9% 100 ML ONE (14:54)
--- NOTE | 2022-11-14 15:55 | RAD REPORT ---
EXAM DESCRIPTION: RAD - Urethrocystogrphy Retrograde - 11/14/2022 3:50 pm CLINICAL HISTORY: ICD N 20.0 FINDINGS: 6 fluoroscopic spot images obtained. Fluoroscopy time.08 minutes Left ureter was cannulated and contrast administered. Subsequently an ureteral stent was placed. Exam ination was performed by Dr Walsh
[2022-11-14] MEDS ORDERED: VANCOMYCIN 1 GM in NA CHLORIDE 0.9% 250 ML IVPB SCH (17:00)
--- NOTE | 2022-11-14 18:33 | OP ---
Surgeon: ROHIT PELAEZ Preoperative Diagnoses: 1. Left nephroureterolithiasis. 2. Bilateral complex renal cysts. 3. SIRS/suspected sepsis versus septic shock. 4. Left hydronephrosis. Postoperative Diagnoses: 1. Left nephroureterolithiasis. 2. Bilateral complex renal cysts. 3. SIRS/suspected sepsis versus septic shock. 4. Left hydronephrosis. 5. Left pyonephrosis. 6. Bladder lesion. 7. Chronic cystitis. Principle Procedures: 1. cystoscopy 2. Left retrograde pyelography 3. Left ureteral stent placement 4. Urethral Irwin catheter placement Indication For Procedure: Ms. De Jesus is a 67-year-old woman with multiple medical comorbidities including atrial fibrillation on Eliquis as well as amiodarone, chronic kidney disease dialysis dependent, and GERD, who is relatively noncompliant with her dialysis routine and presented slightly altered with complaints of pain and diarrhea, found to have an obstructing left 11 mm proximal ureteral calculus associated with left-sided hydronephrosis and signs of SIRS/sepsis, potentially septic shock. She was hypotensive and was ultimately placed on a heparin drip along with vancomycin and gentamicin with trough levels being monitored. Her dialysis was continuing as an inpatient for CHF exacerbation. I consulted with the patient earlier and explained the potential benefit to placement of a left ureteral stent to manage the acidosis that she had in case portion of it was being contributed to by her obstructing calculus, but also to decompress the left renal urine unit and potentially assist with her volume management. Procedure In Detail: The patient was consented, in fact the patient's son consented on her behalf, in the preoperative holding area before being transferred to the operative suite where general anesthesia was induced. No additional antimicrobial therapy was given, given her IV antimicrobials and appropriate trough levels given on the floor. The heparin drip had been held since around 7 or 8 o'clock this morning because the levels were supratherapeutic. She was placed in the lithotomy position, padded and secured to the table appropriately. Her genitalia were prepped with Hibiclens and she was draped in standard fashion. The case was begun using a 22-Singaporean rigid cystoscope to traverse the urethra and into her bladder with ease. The bladder was decompressed of very cloudy appearing urine and washed with saline in order to visualize the mucosa. There was evidence of chronic cystitis with cystitis cystica and glandularis noted throughout the entirety of her bladder, particularly in the trigone and posterior zones. Within the trigone region, there was a 3-5 mm nodulopapillary lesion emanating from the bladder mucosa likely consistent with nodular cystitis. The ureteral orifices were otherwise orthotopic in location. I thus cannulated the left ureteral orifice using a 5- [place]an ureteral access catheter, and assessed for any sign of purulent drainage. I then advanced the catheter into the mid ureter where significant purulent drainage did appear. I then performed a gentle retrograde pyelogram as below. Left retrograde pyelography: Using a 70:30 mixture of Omnipaque and saline, contrast was injected via the lumen of the 5-Singaporean ureteral access catheter and observed under live fluoroscopic imagery until it progressed up the proximal ureter into the renal pelvis and begin to delineate some of the lower pole calyces as well as the renal pelvis. No radiopaque calculus was identified. I thus at this point began to visualize a significant increased degree of purulent drainage from the kidney likely elicited by the retrograde injection of contrast displacing the pus. As a result, we collected several dozen cc of this purulent drainage from her left kidney and sent it for analysis as left renal aspirate urine culture. I then passed a Sensor wire via the 5-Singaporean ureteral access catheter and coiled it within the renal pelvis. Over the Sensor wire, I back-loaded the cystoscope and placed a 6-Sing[place]an by 24 cm double-J ureteral stent with a coil observed fluoroscopically in the renal pelvis and 1 cystoscopically formed in her bladder. Her kidney did continue to emanate significant quantities of purulent fluid both out of the stent and around the stent. As a result, I continued to irrigate her bladder and prepared to biopsy the nodular lesion seen in the trigone. Using cold cup biopsy forceps, I then biopsied and removed the nodular lesion in its entirety, and then switching to normal saline irrigant, I utilized a Bugbee electrode at a cautery setting of 25-30 to fulgurate the base and stop any bleeding. I then decompressed her bladder of fluid, urine and pus before refilling it and placing an 18-Sing[place]an Irwin catheter with ease. 10 cc of sterile water was placed in the balloon, and the catheter was placed to bag drainage. The patient was then awakened, transferred to a stretcher, and then transferred to the recovery room in good condition. Complications: None. Discharge Disposition: Again, this is a 67-year-old woman with atrial fibrillation, on Eliquis and amiodarone, as an inpatient on a heparin drip with supratherapeutic PTT ratio, heparin drip being held, chronic kidney disease dialysis dependent but noncompliant, and GERD with acidosis, left ureteral obstruction causing hydronephrosis due to ureterolithiasis, left pyonephrosis, and SIRS with suspected sepsis, possible septic shock associated with a bladder lesion in the setting of chronic cystitis, suspicious for nodular cystitis cystica. The patient will need to follow up with me in the Urology Clinic for review of the pathology of the bladder biopsy, but also to determine the appropriate timing for definitive left ureteroscopic management, elimination of the stone or at least evaluation of the calcification in that region of the proximal ureter. Additionally, she will require evaluation of the slightly complex cystic lesion seen in her kidneys bilaterally. This will likely require IV contrast CT done immediately prior to dialysis on 1 of her dialysis days, Sunday, , Sunday. CODY/KWAN Voice ID: [id number] Report ID: [id number] SONDRA
[2022-11-14] MEDS: Meropenem 500 MG in NA CHLORIDE 0.9% 100 ML IV SCH (20:07)
[2022-11-14] MEDS: GABAPENTIN 300 MG CAP PO SCH (20:08)
[2022-11-14] MEDS: ONDANSETRON 4 MG/2 ML VIAL IV PRN (21:23)
[2022-11-14] MEDS: HYDROMORPHONE HCL 0.5 MG/0.5 ML INJ IV PRN (21:23)
[2022-11-15] MEDS ORDERED: RSI MEDICATION KIT IV ONE (05:45)
[2022-11-15] MEDS: IBUPROFEN 600 MG TAB PO SCH ×2 (06:00→12:00)
[2022-11-15] MEDS: HYDROMORPHONE HCL 0.5 MG/0.5 ML INJ IV PRN ×2 (06:00→09:32)
[2022-11-15] MEDS ORDERED: NA CHLORIDE 0.9% 250 ML IV PRN (06:11)
[2022-11-15] MEDS ORDERED: propofoL 500 MG/50 ML ML IV ONE (06:14)
[2022-11-15] MEDS: FENTANYL CITR 100 MCG/2 ML IV PRN ×2 (06:35→23:01)
[2022-11-15] MEDS ORDERED: propofoL 1,000 MG/100 ML VIAL IV SCH (07:00)
[2022-11-15] MEDS ORDERED: BUPIVACAINE 0.5% PF 10 ML VIAL ONE (07:22)
--- NOTE | 2022-11-15 07:51 | RAD REPORT ---
EXAM DESCRIPTION: RAD - Abdomen 1 View (KUB) - 11/15/2022 6:51 am CLINICAL HISTORY: Device placement the nasogastric tube placement FINDINGS: The tip of a nasogastric tube tube lies within the distal stomach.
[2022-11-15 08:01] LABS: Albumin 3.1 g/dL (3.4-5.0); Bilirubin Total 0.9 mg/dL (0.2-1.0); Potassium 3.3 mmol/L (3.5-5.1); Protein, Total 6.5 g/dL (6.4-8.2)
--- NOTE | 2022-11-15 08:09 | P.PN ---
Subjective Date of Service: 11/15/22 Primary Care Provider: Fco Chief Complaint: fluid overload Patient coded secondary to andrea in the morning and was transferred to ICU. Alert and was able to nod head to answer questions. ETT in place. Physical Examination - Vital Signs Temperature: 98.5 F Blood Pressure: 87/59 Pulse: 112 Respirations: 25 Pulse Ox (%): 97 - Physical Exam General: Alert, Oriented x3 Respiratory: Crackles/rales, Other (on vent support) Cardiovascular: Irregular heart rate/rhythm Gastrointestinal: Normal bowel sounds Musculoskeletal: Other (stasis dermatitis) Integumentary: Other (stasis dermatitis) Neurological: Normal affect - Studies Albuterol Sulfate (Albuterol 2.5 Mg/3 Ml Neb Patito) 2.5 mg NEB [id number] PRN PRN Reason: WHEEZING Amiodarone HCl (Amiodarone Hcl 200 Mg Tab) 200 mg PO BID [facility] Last Admin: 11/14/22 20:08 Dose: 200 mg Epoetin Mahesh (Epoetin 4,000 Unit/Ml Vial) 4,000 unit IV EVERY HD [facility] Last Admin: 11/13/22 14:15 Dose: 4,000 unit Fentanyl Citrate (Fentanyl Citr 100 Mcg/2 Ml) 25 mcg IV Q4HP PRN PRN Reason: Pain scale 8-10 (Severe) Last Admin: 11/15/22 06:35 Dose: 25 mcg Folic Acid (Folic Acid 1 Mg Tablet) 1 mg PO DAILY [facility] Last Admin: 11/14/22 09:00 Dose: Not Given Gabapentin (Gabapentin 300 Mg Cap) 300 mg PO BEDTIME [facility] Last Admin: 11/14/22 20:08 Dose: 300 mg Haloperidol Lactate (Haloperidol Lact 5 Mg/Ml Inj) 2 mg IV Q4HP PRN PRN Reason: AGITATION Heparin Sodium (Porcine) (Heparin 1,000 Unit/Ml Vial) 4,000 unit IV EVERY HD PRN PRN Reason: DIALYSIS CATHETER CARE Last Admin: 11/13/22 15:02 Dose: 4,000 unit Home Med (Brimonidine Tartrate [Alphagan P]) 1 drop OPTH BID [facility] Last Admin: 11/14/22 20:08 Dose: Not Given Hydromorphone HCl (Hydromorphone Hcl 0.5 Mg/0.5 Ml Inj) 0.5 mg IV Q4H PRN PRN Reason: Pain scale 8-10 (Severe) Last Admin: 11/15/22 06:00 Dose: 0.5 mg Vancomycin HCl 1 gm/ Sodium (Chloride) 250 mls @ 250 mls/hr IVPB AFTER EACH DIALYSIS [facility]; Protocol Gentamicin Sulfate 190 mg/ (Sodium Chloride) 104.75 mls @ 104.75 mls/hr IVPB AFTER EACH DIALYSIS [facility] Meropenem 500 mg/ Sodium (Chloride) 100 mls @ 200 mls/hr IV DAILY 6PM [facility] Last Admin: 11/14/22 20:07 Dose: 100 mls Propofol (Diprivan) 1,000 mg in 100 mls @ 6.559 mls/hr IV TITR [facility]; Protocol Last Titration: 11/15/22 06:48 Dose: 0 mcg/kg/min, 0 mls/hr Sodium Chloride (Sodium Chloride) 250 mls @ 999 mls/hr IV Q15M PRN PRN Reason: HYPOTENSION Last Admin: 11/15/22 06:20 Dose: 250 mls Ibuprofen (Ibuprofen 600 Mg Tab) 600 mg PO Q6HR [facility] Last Admin: 11/15/22 06:00 Dose: Not Given Ipratropium [place] (Ipratropium Brom 0.5mg/2.5ml) 0.5 mg NEB [id number] PRN PRN Reason: WHEEZING Lorazepam (Lorazepam 2 Mg/Ml Vial) 2 mg IV Q2HP PRN PRN Reason: Sedation-Propofol not effect Metoprolol Tartrate (Metoprolol Tar 25 Mg Tab) 12.5 mg PO BID [facility] Last Admin: 11/14/22 20:08 Dose: Not Given Midazolam HCl (Midazolam Hcl 2 Mg/2 Ml Inj) 2 mg IV Q2HP PRN PRN Reason: Sedation-Propofol not effect Midodrine (Midodrine Hcl 5 Mg Tablet) 10 mg PO TID [facility] Last Admin: 11/14/22 20:08 Dose: 10 mg Ondansetron HCl (Ondansetron 4 Mg/2 Ml Vial) 8 mg IV Q8H PRN PRN Reason: NAUSEA / VOMITING Last Admin: 11/14/22 21:23 Dose: 8 mg Pantoprazole Sodium (Pantoprazole 40mg Tablet) 40 mg PO DAILY [facility]; Protocol Last Admin: 11/14/22 09:00 Dose: Not Given Sevelamer Carbonate (Sevelamer Carbonate 800 Mg Tablet) 800 mg PO TID [facility] Last Admin: 11/14/22 20:09 Dose: Not Given Sodium Chloride (Flush Normal Saline 10 Ml) 10 ml IV BID [facility] Last Admin: 11/14/22 20:08 Dose: 10 ml Microbiology Data (last 24 hrs): Microbiology 11/10/22 21:54 Blood - Blood Aerobic Blood Culture - Preliminary No growth in 24 hours. 11/10/22 21:54 Blood - Blood Anaerobic Blood Culture - Preliminary No growth in 24 hours. 11/10/22 21:48 Blood - Blood Aerobic Blood Culture - Preliminary No growth in 24 hours. 11/10/22 21:48 Blood - Blood Anaerobic Blood Culture - Final Assessment And Plan - Current Problems (Diagnosis) (1) Urinary tract infection Current Visit: Yes Status: Acute Plan: - possible urosepsis: Cultures: 11/14 BC: Pending 11/12 UC: Negative 11/10 Stool: Pending 11/10 Parasites: Pending 11/10 BC: Negative Antibiotics: - IV Gentamicin, 11/12 to 11/15 - IV Vancomycin s/p HD, 11/12 to - Dr. Walsh added IV Meropenem, 11/14 to Recommendation: Stop Gentamicin ID agrees to continue current IV antibiotics and will provide drug of choice when urine culture is available Left renal stone: CT: 11 mm stone proximal left ureter with moderate left hydronephrosis. Pus seen on stenting - Plan - ESRD (end stage renal disease) on dialysis: Nephrology onboard - Left hydronephrosis due to renal stone - Left renal stone: CT: 11 mm stone proximal left ureter with moderate left hydronephrosis. Pus seen on stenting - Atrial fibrillation: Managed by Primary team - CHF (congestive heart failure): Managed by primary team - Non-compliance with renal dialysis - Chronic hypotension - Hyperlipidemia - Chronic anticoagulation use - History of nephrolithiasis requiring stent placement - Recurrent UTI - End-stage renal disease - HTN - tubal ligation - cholecystectomy - right broken wrist - cataracts removed - back surgery ID will closely monitoring the patient for signs of infection with fever and WBC trends Case has been discussed with Dr. Wolf, N Physician Review: Patient Assessed, Agree with Above Assessment and Plan
--- NOTE | 2022-11-15 08:15 | P.PN ---
Subjective Date of Service: 11/15/22 Primary Care Provider: Fco Chief Complaint: fluid overload Patient was non compliant with her cpap early this morning. Became hypoxic and bradycardic and was intubated Review of Systems is unable to be obtained Physical Examination - Vital Signs Temperature: 98.5 F Blood Pressure: 87/59 Pulse: 112 Respirations: 25 Pulse Ox (%): 97 - Physical Exam General: Moderate distress (patient is awake Cannont speak due to the ET tube) Assessment And Plan - Current Problems (Diagnosis) (1) Left renal stone Current Visit: Yes Status: Chronic Plan: consult to Dr. Sunitha Walsh. He most likely will see her Sunday night or Sunday morning. Will start her on flomax and work on pain management plans for stenting today 11/15 Patient had puss on stenting. Was sent to the ICU. Added meropenem to the vancomycin. (2) ESRD (end stage renal disease) on dialysis Current Visit: No Status: Chronic Plan: restart dialysis with Dr. Powers's group. (3) Atrial fibrillation Current Visit: No Status: Acute Plan: continue amiodarone and metoprolol Qualifiers: (4) CHF (congestive heart failure) Current Visit: No Status: Chronic Plan: will continue metoprolol. She should be on a nocturnal cpap for her sleep apnea. However the patient is not compliant. She comes in several times and requires positive pressure ventilation. She take it off as soon as she wakes up and refuses it. Qualifiers: Heart failure type: diastolic Heart failure chronicity: chronic Qualified Code(s): I50.32 - Chronic diastolic (congestive) heart failure (5) Respiratory failure Current Visit: Yes Status: Acute Plan: consult to Dr. Braun. She is on the vent protochol Qualifiers: Chronicity: acute Respiratory failure complication: hypoxia Qualified Code(s): J96.01 - Acute respiratory failure with hypoxia (6) Severe sepsis Current Visit: Yes Status: Acute Plan: continue Vanc and meropenem. Cultures pending Discharge Plan: Home Plan to discharge in: Greater than 2 days Physician Review: Patient Assessed, Agree with Above Assessment and Plan Critical Care: Yes Time Spent Managing PTS Care (In Minutes): 25
[2022-11-15 08:26] LABS: Absolute Lymphocytes (CBC) 0.5 K/uL (0.7-4.9); Hematocrit 28.3 % (36.0-45.0); Lymphocytes % 4.8 % (15.3-44.8); MCV 99.4 fL (80-100); MPV 8.8 fL (7.6-11.3); RBC Red Blood Cell Count 2.85 M/uL (3.86-4.86)
[2022-11-15] MEDS: SEVELAMER CARBONATE 800 MG TABLET PO SCH ×3 (09:00→21:00)
[2022-11-15] MEDS: HOME MED 1 EA UNK (Brimonidine Tartrate [Alphagan P] 10 ML Drops) OPTH SCH ×2 (09:00→19:31)
[2022-11-15] MEDS: PANTOPRAZOLE 40MG TABLET PO SCH (09:00)
[2022-11-15] MEDS: METOPROLOL TAR 25 MG TAB PO SCH ×2 (09:00→21:00)
[2022-11-15] MEDS: MIDODRINE HCL 5 MG TABLET PO SCH ×3 (09:32→21:07)
[2022-11-15] MEDS: FOLIC ACID 1 MG TABLET PO SCH (09:33)
[2022-11-15] MEDS: AMIODARONE HCL 200 MG TAB PO SCH ×2 (09:34→21:07)
[2022-11-15] MEDS: Pantoprazole (granules) 40 MG/BLIST PACKET FT SCH (09:34)
[2022-11-15] MEDS ORDERED: DEXMEDETOMIDINE HCL 200 MCG in NA CHLORIDE 0.9% 98 ML IV SCH (10:00)
[2022-11-15] MEDS ORDERED: ALBUMIN HUMAN 25% 100 ML IV ONE ×2 (11:57→13:00)
--- NOTE | 2022-11-15 12:00 | PN ---
Date of Progress Note: 11/15/2022 Subjective: The patient was admitted with respiratory failure, poor compliant with dialysis. The pa marce today developed hypercapnic respiratory failure, bradycardic. The patient intubated. Physical Examination: Vital Signs: When I saw the patient; blood pressure 101/71, pulse of 88, afebrile. Chest: Crackles bilateral. Heart: S1, S2. Systolic murmur. Abdomen: Soft, nontender. Extremities: Plus edema. Neuro: Alert. No focality. Laboratory Data: Hemoglobin 8.8. Sodium 138, potassium 3.3, bicarb 23, BUN 59, creatinine 8.5, calc ium 8.2. Current Medications: The patient on include; 1.Meropenem. 2.Vancomycin. 3.Midodrine. 4.Heparin. 5.Amiodarone. 6.Metoprolol 12.5. 7.Renvela. 8.Ipratropium. 9.Zofran. 10.Fentanyl. Assessment And Plan: 1.End-stage renal disease, over volume with respiratory failure, on vent. I am going to go ahead an d do dialysis today. We will dialyze the patient on sodium module and low temperature. We will use midodrine for blood pressure support with albumin and we will dialyze the patient on high potassium b ath given the current potassium and we will follow up. 2.Hypertension, currently hypotension. Keep holding all blood pressure medications except metoprolo l for rate control. Continue midodrine. 3.Respiratory failure secondary to hypercapnic respiratory failure/over volume. We will challenge t he patient today. 4.Hypokalemia. The patient is going to be dialyzed on high potassium bath. 5.Hypercapnic respiratory failure with bradycardia as by Pulmonary. MA/MODL Voice ID: [id number] Report ID: [id number]
--- NOTE | 2022-11-15 12:20 | RAD REPORT ---
EXAM DESCRIPTION: RAD - Chest Single View - 11/15/2022 6:05 am CLINICAL HISTORY: The patient is 67 years old and is Female; ET TUBE placement TECHNIQUE: Frontal view of the chest. COMPARISON: 10/26/2021 chest FINDINGS: LUNGS: Right hemidiaphragm elevation with right basilar opacities and right-sided pleur al effusion. No focal consolidation within the left lung. PLEURAL SPACE: No pneumothorax or pneumomediastinum. HEART: Unremarkable. No cardiomegaly. MEDIASTINUM: Allowing for leftward patient rotation, stable enlargement of the cardiomediastinal s ilhouette. BONES/JOINTS: Unremarkable. TUBES, LINES AND DEVICES: The endotracheal tube (ETT) is in satisfactory position with tip 1.2 cm above the dano. Enteric tube tip terminates below the inferior margin of the image. Left approach CVC tip terminates in the right atrium. Loop recorder noted over the left chest. IMPRESSION: 1. Right hemidiaphragm elevation with right basilar opacities and right-sided pleural effusion. 2. Support devices as above. Electronically signed by: Walt Hodge MD 11/15/2022 6:21 AM PROP ATTENDANT Due to temporary technical issues with the PACS/Fluency reporting system, reports are being signed by the in house radiologists without review as a courtesy to insure prompt reporting. The interpreting radiologist is fully responsible for the content of the report.
[2022-11-15 12:40] LABS: Blood O2 Saturation 92.1 % (92-98.5)
--- NOTE | 2022-11-15 12:42 | P.CNS ---
Date of Consult: 11/15/22 Reason for Consult: Respiratory failure Primary Care Provider: Fco Chief Complaint: Respiratory failure History of Present Illness: Patient is 67 years of age admitted with left-sided hydronephrosis s/p stent placement developed agitation and is currently on a ventilator patient has end- stage renal disease on dialysis Allergies cefepime Allergy (Verified 11/11/22 04:23) Hives codeine Allergy (Verified 11/11/22 04:23) Itching levofloxacin Allergy (Verified 11/11/22 04:23) Hives/Rash morphine Allergy (Verified 11/11/22 04:23) Itching Penicillins Allergy (Verified 11/11/22 04:23) Hives/Rash promethazine [From Phenergan] Allergy (Verified 11/11/22 10:03) Nausea/Vomiting sulfamethoxazole [From Bactrim] Allergy (Verified 11/11/22 04:23) Hives trimethoprim [From Bactrim] Allergy (Verified 11/11/22 04:23) Hives Home Medications: Apixaban [Eliquis] 2.5 mg PO BID 05/19/22 Bumetanide 2 tab PO DAILY 05/19/22 Midodrine HCl 5 mg PO TID 05/19/22 Pantoprazole [Protonix Tab*] 1 tab PO DAILY 05/19/22 Sevelamer Carbonate [Renvela] 800 mg PO TID 05/19/22 Amiodarone HCl [Cordarone*] 200 mg PO BID 90 Days #180 tab 10/20/22 Alendronate Sodium 70 mg PO MO 10/25/22 Gabapentin 300 mg PO BEDTIME 10/25/22 Promethazine Tab [Phenergan*] 25 mg PO Q6HP PRN 30 Days #90 tab 10/26/22 Brimonidine Tartrate [Alphagan P] 1 drop EACH EYE BID 11/05/22 Metoprolol Tartrate [Lopressor*] 12.5 mg PO BID 11/05/22 Minocycline HCl [Minocin] 1 tab PO BID 11/05/22 - Past Medical/Surgical History Diabetic: No -: Chronic hypotension -: Hyperlipidemia -: Chronic anticoagulation use -: History of nephrolithiasis requiring stent placement -: Recurrent UTI -: End-stage renal disease -: CHF -: HTN -: A-Fib -: tubal ligation -: dialysis port -: cholecystectomy -: right broken wrist -: lasik -: cataracts removed -: back surgery - Family History Sister Medical History: Cancer Notes: per pt, sister has lung cancer and is being treated for a "spot on her brain" Father Medical History: Lung disease - Social History Smoking Status: Unknown if ever smoked Alcohol use: No CD- Drugs: No Caffeine use: Yes Place of Residence: Home Review of Systems is unable to be obtained Physical Examination Temp Pulse Resp BP Pulse Ox 98.5 F 112 H 25 H 87/59 L 97 11/15/22 11:17 11/15/22 11:17 11/15/22 11:17 11/15/22 11:17 11/15/22 11:17 General: Alert, Moderate distress Respiratory: Clear to auscultation bilaterally, Diminished Cardiovascular: No edema, Regular rate/rhythm, Normal S1 S2 Gastrointestinal: Normal bowel sounds, Soft and benign - Problems (1) Respiratory failure Current Visit: Yes Status: Acute Plan: Patient is 67 years of age admitted with left-sided hydronephrosis had a stent placed developed respiratory distress is currently intubated she has end-stage renal disease follow-up acute respiratory acidosis patient is chronically elevated right hemidiaphragm recent echocardiogram in June 12 shows normal left ventricular function moderate TR and MR so far blood cultures are negative we will change vent to pressure control dexmedetomidine Qualifiers: Chronicity: acute
[2022-11-15] MEDS ORDERED: DEXMEDETOMIDINE HCL 1,000 MCG in NA CHLORIDE 0.9% 490 ML IV SCH (14:00)
[2022-11-15] MEDS ORDERED: NA CHLORIDE 0.9% IVPB SCH (17:00)
[2022-11-15] MEDS ORDERED: GENTAMICIN IVPB SCH (17:00)
[2022-11-15] MEDS: HALOPERIDOL LACT 5 MG/ML INJ IV PRN (20:27)
[2022-11-15] MEDS: GABAPENTIN 300 MG CAP PO SCH (21:07)
[2022-11-15] MEDS: EPOETIN 4,000 UNIT/ML VIAL IV SCH (21:45)
[2022-11-16] MEDS: Meropenem 500 MG in NA CHLORIDE 0.9% 100 ML IV SCH (00:01)
[2022-11-16] MEDS: LORazepam 2 MG/ML VIAL IV PRN ×6 (00:15→21:41)
[2022-11-16 04:56] LABS: Absolute Lymphocytes (CBC) 0.4 K/uL (0.7-4.9); Lymphocytes % 7.4 % (15.3-44.8); MCV 98.8 fL (80-100); RBC Red Blood Cell Count 2.53 M/uL (3.86-4.86)
[2022-11-16 05:10] LABS: Albumin 3.1 g/dL (3.4-5.0); Bilirubin Total 1.4 mg/dL (0.2-1.0); Potassium 3.4 mmol/L (3.5-5.1); Protein, Total 6.5 g/dL (6.4-8.2)
[2022-11-16 06:08] LABS: Arterial Blood Carboxyhemoglob 1.9 % (0-1.5); Blood Gas Oxyhemoglobin 89.3 % (94-97); Blood O2 Saturation 92.3 % (92-98.5)
[2022-11-16] MEDS: FENTANYL CITR 100 MCG/2 ML IV PRN ×3 (07:39→22:16)
[2022-11-16] MEDS: SEVELAMER CARBONATE 800 MG TABLET PO SCH ×3 (07:41→20:37)
[2022-11-16] MEDS: MIDODRINE HCL 5 MG TABLET PO SCH ×3 (07:41→20:37)
[2022-11-16] MEDS: AMIODARONE HCL 200 MG TAB PO SCH ×2 (07:41→20:38)
[2022-11-16] MEDS: FOLIC ACID 1 MG TABLET PO SCH (07:41)
[2022-11-16] MEDS: Pantoprazole (granules) 40 MG/BLIST PACKET FT SCH (07:45)
[2022-11-16] MEDS: HOME MED 1 EA UNK (Brimonidine Tartrate [Alphagan P] 10 ML Drops) OPTH SCH ×2 (07:46→20:38)
[2022-11-16] MEDS: METOPROLOL TAR 25 MG TAB PO SCH ×2 (07:46→20:09)
--- NOTE | 2022-11-16 07:51 | P.PN ---
Subjective Date of Service: 11/16/22 Primary Care Provider: Fco Chief Complaint: Respiratory failure Patient lying in bed on Vent support with ETT in place with at the bedside. Alert and was able to nod head to answer questions. Current on 65% of FiO2 Physical Examination - Vital Signs Temperature: 97.6 F Blood Pressure: 90/60 Pulse: 101 Respirations: 22 Pulse Ox (%): 98 - Physical Exam General: Alert, In no apparent distress, Oriented x3 Respiratory: Crackles/rales, Other (on vent support with ETT in place) Cardiovascular: Irregular heart rate/rhythm Gastrointestinal: Normal bowel sounds Musculoskeletal: Other (stasis dermatitis) Integumentary: Other (stasis dermatitis) Neurological: Normal affect, Other (ETT in place) - Studies Albuterol Sulfate (Albuterol 2.5 Mg/3 Ml Neb Patito) 2.5 mg NEB [id number] PRN PRN Reason: WHEEZING Amiodarone HCl (Amiodarone Hcl 200 Mg Tab) 200 mg PO BID [facility] Last Admin: 11/16/22 07:41 Dose: 200 mg Epoetin Mahesh (Epoetin 4,000 Unit/Ml Vial) 4,000 unit IV EVERY HD [facility] Last Admin: 11/15/22 21:45 Dose: 4,000 unit Fentanyl Citrate (Fentanyl Citr 100 Mcg/2 Ml) 25 mcg IV Q4HP PRN PRN Reason: Pain scale 8-10 (Severe) Last Admin: 11/16/22 07:39 Dose: 25 mcg Folic Acid (Folic Acid 1 Mg Tablet) 1 mg PO DAILY [facility] Last Admin: 11/16/22 07:41 Dose: 1 mg Gabapentin (Gabapentin 300 Mg Cap) 300 mg PO BEDTIME [facility] Last Admin: 11/15/22 21:07 Dose: 300 mg Haloperidol Lactate (Haloperidol Lact 5 Mg/Ml Inj) 2 mg IV Q4HP PRN PRN Reason: AGITATION Last Admin: 11/15/22 20:27 Dose: 2 mg Heparin Sodium (Porcine) (Heparin 1,000 Unit/Ml Vial) 4,000 unit IV EVERY HD PRN PRN Reason: DIALYSIS CATHETER CARE Last Admin: 11/15/22 23:02 Dose: 4,000 unit Home Med (Brimonidine Tartrate [Alphagan P]) 1 drop OPTH BID [facility] Last Admin: 11/16/22 07:46 Dose: Not Given Meropenem 500 mg/ Sodium (Chloride) 100 mls @ 200 mls/hr IV DAILY 6PM [facility] Last Admin: 11/16/22 00:01 Dose: 100 mls Sodium Chloride (Sodium Chloride) 250 mls @ 999 mls/hr IV Q15M PRN PRN Reason: HYPOTENSION Last Admin: 11/15/22 06:20 Dose: 250 mls Vancomycin HCl 1 gm/ Sodium (Chloride) 250 mls @ 250 mls/hr IVPB AFTER EACH DIALYSIS [facility]; Protocol Dexmedetomidine HCl 1,000 mcg/ (Sodium Chloride) 500 mls @ 10.932 mls/hr IV TITR [facility]; Protocol Last Titration: 11/15/22 14:44 Dose: 0 mcg/kg/hr, 0 mls/hr Ipratropium [place] (Ipratropium Brom 0.5mg/2.5ml) 0.5 mg NEB [id number] PRN PRN Reason: WHEEZING Lorazepam (Lorazepam 2 Mg/Ml Vial) 2 mg IV Q2HP PRN PRN Reason: Sedation-Propofol not effect Last Admin: 11/16/22 04:20 Dose: 2 mg Metoprolol Tartrate (Metoprolol Tar 25 Mg Tab) 12.5 mg PO BID [facility] Last Admin: 11/16/22 07:46 Dose: Not Given Midazolam HCl (Midazolam Hcl 2 Mg/2 Ml Inj) 2 mg IV Q2HP PRN PRN Reason: Sedation-Propofol not effect Midodrine (Midodrine Hcl 5 Mg Tablet) 10 mg PO TID [facility] Last Admin: 11/16/22 07:41 Dose: 10 mg Ondansetron HCl (Ondansetron 4 Mg/2 Ml Vial) 8 mg IV Q8H PRN PRN Reason: NAUSEA / VOMITING Last Admin: 11/14/22 21:23 Dose: 8 mg Pantoprazole Sodium (Pantoprazole (Granules) 40 Mg/Blist Packet) 40 mg FT DAILY [facility] Last Admin: 11/16/22 07:45 Dose: 40 mg Sevelamer Carbonate (Sevelamer Carbonate 800 Mg Tablet) 800 mg PO TID [facility] Last Admin: 11/16/22 07:41 Dose: Not Given Sodium Chloride (Flush Normal Saline 10 Ml) 10 ml IV BID [facility] Last Admin: 11/16/22 07:45 Dose: 10 ml Microbiology Data (last 24 hrs): 11/10/22 21:54 Blood - Blood Aerobic Blood Culture - Final No growth in 5 days. 11/10/22 21:54 Blood - Blood Anaerobic Blood Culture - Final No growth in 5 days. 11/10/22 21:48 Blood - Blood Aerobic Blood Culture - Final No growth in 5 days. 11/10/22 21:48 Blood - Blood Anaerobic Blood Culture - Final Assessment And Plan - Current Problems (Diagnosis) (1) Urinary tract infection Current Visit: Yes Status: Acute Plan: - possible urosepsis: Cultures: 11/14 BC: Not done 11/12 UC: Negative 11/10 Stool: Pending 11/10 Parasites: Pending 11/10 BC: Negative Antibiotics: - IV Gentamicin, 11/12 to 11/15 - IV Vancomycin s/p HD, 11/12 to (Stopped by Dr. Macario, per bedside RN) - Dr. Walsh added IV Meropenem, 11/14 to 11/16 (Stopped by Dr. Macario, per bedside RN) Recommendation: To continue IV Meropenem and Vancomycin Left renal stone: CT: 11 mm stone proximal left ureter with moderate left hydronephrosis. Pus seen on stenting with stent placement, 11/14 - Plan - ESRD (end stage renal disease) on dialysis: Nephrology onboard - Left hydronephrosis due to renal stone - Left renal stone: CT: 11 mm stone proximal left ureter with moderate left hydronephrosis. Pus seen on stenting with stent placement, 11/14 - Atrial fibrillation: Managed by Primary team - CHF (congestive heart failure): Managed by primary team - Non-compliance with renal dialysis - Chronic hypotension - Hyperlipidemia - Chronic anticoagulation use - History of nephrolithiasis requiring stent placement - Recurrent UTI - End-stage renal disease - HTN - tubal ligation - cholecystectomy - right broken wrist - cataracts removed - back surgery ID will closely monitoring the patient for signs of infection with fever and WBC trends Case has been discussed with Dr. Wolf, N Physician Review: Patient Assessed, Agree with Above Assessment and Plan
[2022-11-16] MEDS: MIDAZOLAM HCL 2 MG/2 ML INJ IV PRN ×2 (08:21→17:29)
--- NOTE | 2022-11-16 08:28 | P.PN ---
Subjective Date of Service: 11/16/22 Primary Care Provider: Fco Chief Complaint: Respiratory failure No change in patient's condition she continues to remain agitated did not tolerate dexmedetomidine or propofol still tachycardic on amiodarone drip Review of Systems is unable to be obtained Physical Examination - Vital Signs Temperature: 97.6 F Blood Pressure: 90/60 Pulse: 101 Respirations: 22 Pulse Ox (%): 98 - Physical Exam General: Unresponsive Respiratory: Diminished Cardiovascular: No edema, Regular rate/rhythm, Normal S1 S2 - Studies Microbiology Data (last 24 hrs): 11/10/22 21:54 Blood - Blood Aerobic Blood Culture - Final No growth in 5 days. 11/10/22 21:54 Blood - Blood Anaerobic Blood Culture - Final No growth in 5 days. 11/10/22 21:48 Blood - Blood Aerobic Blood Culture - Final No growth in 5 days. 11/10/22 21:48 Blood - Blood Anaerobic Blood Culture - Final Assessment And Plan - Current Problems (Diagnosis) (1) Respiratory failure Current Visit: Yes Status: Acute Plan: Patient admitted with respiratory failure still requiring high concentrations of oxygen we will plan to titrate to a sat of 90% add bronchodilators Brovana add a trial of steroids doubt sepsis we will check a procalcitonin level patient is on vancomycin and meropenem White count is normal cultures negative antibiotics can be DC'd chest x-ray reviewed is appears to be clear endotracheal tube satisfactory position blood gases reviewed hypoxic hypercapnic Qualifiers: Chronicity: acute Physician Review: Patient Assessed, Agree with Above Assessment and Plan
--- NOTE | 2022-11-16 08:37 | P.PN ---
Subjective Date of Service: 11/16/22 Primary Care Provider: Fco Chief Complaint: Respiratory failure Subjective: No new changes Patient was non compliant with her cpap early this morning. Became hypoxic and bradycardic and was intubated Review of Systems is unable to be obtained Physical Examination - Vital Signs Temperature: 97.6 F Blood Pressure: 90/60 Pulse: 101 Respirations: 22 Pulse Ox (%): 98 - Physical Exam General: Alert, In no apparent distress HEENT: Atraumatic, PERRLA, EOMI Neck: Supple, JVD not distended Respiratory: Clear to auscultation bilaterally, Normal air movement Cardiovascular: Regular rate/rhythm, Normal S1 S2 Gastrointestinal: Normal bowel sounds, No tenderness Musculoskeletal: No tenderness Integumentary: No rashes Neurological: Normal speech, Normal tone, Normal affect Lymphatics: No axilla or inguinal lymphadenopathy - Studies Microbiology Data (last 24 hrs): 11/10/22 21:54 Blood - Blood Aerobic Blood Culture - Final No growth in 5 days. 11/10/22 21:54 Blood - Blood Anaerobic Blood Culture - Final No growth in 5 days. 11/10/22 21:48 Blood - Blood Aerobic Blood Culture - Final No growth in 5 days. 11/10/22 21:48 Blood - Blood Anaerobic Blood Culture - Final Assessment And Plan - Current Problems (Diagnosis) (1) Left renal stone Current Visit: Yes Status: Chronic Plan: consult to Dr. Sunitha Walsh. He most likely will see her Sunday night or Sunday morning. Will start her on flomax and work on pain management plans for stenting today 11/15 Patient had puss on stenting. Was sent to the ICU. Added meropenem to the vancomycin. (2) ESRD (end stage renal disease) on dialysis Current Visit: No Status: Chronic Plan: restart dialysis with Dr. Powers's group. (3) Atrial fibrillation Current Visit: No Status: Acute Plan: continue amiodarone and metoprolol Qualifiers: (4) CHF (congestive heart failure) Current Visit: No Status: Chronic Plan: will continue metoprolol. She should be on a nocturnal cpap for her sleep apnea. However the patient is not compliant. She comes in several times and requires positive pressure ventilation. She take it off as soon as she wakes up and refuses it. Qualifiers: Heart failure type: diastolic Heart failure chronicity: chronic Qualified Code(s): I50.32 - Chronic diastolic (congestive) heart failure (5) Respiratory failure Current Visit: Yes Status: Acute Plan: consult to Dr. Braun. She is on the vent protochol Qualifiers: Chronicity: acute Respiratory failure complication: hypoxia Qualified Code(s): J96.01 - Acute respiratory failure with hypoxia (6) Severe sepsis Current Visit: Yes Status: Acute Plan: continue Vanc and meropenem. Cultures pending Discharge Plan: Home Plan to discharge in: 24 Hours - Code Status/Comfort Care Code Status Assessed: No Physician Review: Patient Assessed, Agree with Above Assessment and Plan Critical Care: Yes Time Spent Managing PTS Care (In Minutes): 20
[2022-11-16] MEDS: METHYLPREDNISOLONE 40 MG INJ IV SCH ×2 (09:46→20:37)
--- NOTE | 2022-11-16 10:43 | PN ---
Date of Progress Note: 11/16/2022 Subjective: The patient was admitted with hypercapnic respiratory failure. The patient had bradycar rohan. The patient was intubated. Yesterday had dialysis, we managed to remove 1600. Physical Examination: Vital Signs: When I showed the patient; blood pressure 90/60, pulse of 101, afebrile. Chest: Decreased entry bilateral base. Heart: S1, S2. Systolic murmur. Abdomen: Soft, nontender. Extremities: +1 edema. Neurologic: Alert. Sleepy. Laboratory Data: Hemoglobin 7.8. Chest x-ray, cardiomegaly with congestion, compared to previous est x-ray much better. The patient's FiO2 requirement down to 65. Sodium 140, potassium 3.4, bicarb 27, BUN 38, creatinine 6.7, calcium 8.5. Current Medications: The patient on include; 1.Midodrine. 2.Epogen. 3.Amiodarone. 4.Metoprolol. 5.Folic acid. 6.Renvela. Assessment And Plan: 1.End-stage renal disease, over volume. I am going to do another session of dialysis today just seq uential and we will follow up the patient. 2.Hypertension, currently hypotension. We will utilize blood pressure for more ultrafiltration. 3.Anemia of chronic kidney disease. Continue SABIHA. 4.Secondary hyperparathyroidism. Continue Renvela. 5.Respiratory failure, multifactorial, secondary to chronic obstructive pulmonary disease exacerbati on/over volume. We will do extra dialysis today and we will follow up. Time spent evaluating the patient, reviewing data, lab and radiology, placing order, discussing the c ase with the steam bone press tender including nursing and ICU and hospitalist more than 35 minutes. SANAZ Voice ID: [id number] Report ID: [id number]
[2022-11-16] MEDS: ARFORMOTEROL TARTRATE 15 MCG/2 ML VIAL.NEB NEB SCH ×2 (13:37→20:00)
[2022-11-16] MEDS ORDERED: ALBUMIN HUMAN 25% 100 ML IV ONE (14:05)
--- NOTE | 2022-11-16 14:36 | RAD REPORT ---
EXAM DESCRIPTION: XR Chest, 1 View CLINICAL HISTORY: The patient is 67 years old and is Female; PICC PLACEMENT TECHNIQUE: Single view of the chest. COMPARISON: November 15, 2022. FINDINGS: Lungs: Retrocardiac atelectasis or consolidation is mildly increased. Improved atelectas is in the right lung base. Pleural space: Right pleural effusion is decreased in conspicuity. No pneumothorax. Heart: Cardiomegaly. Mediastinum: Unremarkable. Bones/joints: The bones and joints are unchanged as visualized. Tubes, lines and devices: Right PICC line is at the SVC/RA junction. Tunneled left IJ hemodialys is catheter terminates in the right atrium. ET tube is 2 cm above the dano. NG tube is in the stomach. Upper abdomen: Elevated right hemidiaphragm. IMPRESSION: 1. Retrocardiac atelectasis or consolidation is mildly increased. Improved atelectasis in the right lung base. 2. Lines and tubes as above. Electronically signed by: Kimberlee Manuel MD 11/16/2022 6:07 AM CRIMINALIST TECHNICIAN Due to temporary technical issues with the PACS/Fluency reporting system, reports are being signed by the in house radiologists without review as a courtesy to insure prompt reporting. The interpreting radiologist is fully responsible for the content of the report.
[2022-11-16 16:52] LABS: Hepatitis B surface AG Interp. Nonreactive (Nonreactive)
[2022-11-16] MEDS ORDERED: VANCOMYCIN 1 GM in NA CHLORIDE 0.9% 250 ML IVPB SCH (17:00)
[2022-11-16 17:02] LABS: Hepatitis B Surface Ab - Quant < 3.10 mIU/mL (<8.0)
[2022-11-16] MEDS: EPOETIN 4,000 UNIT/ML VIAL IV SCH (19:30)
[2022-11-16] MEDS: GABAPENTIN 300 MG CAP PO SCH (20:37)
[2022-11-17] MEDS: MIDAZOLAM HCL 2 MG/2 ML INJ IV PRN ×3 (00:51→14:05)
[2022-11-17] MEDS: LORazepam 2 MG/ML VIAL IV PRN ×4 (01:45→13:32)
[2022-11-17] MEDS: FENTANYL CITR 100 MCG/2 ML IV PRN ×3 (02:02→12:31)
[2022-11-17 06:20] LABS: Arterial Blood Carboxyhemoglob 1.8 % (0-1.5); Blood Gas Oxyhemoglobin 90.2 % (94-97); Blood O2 Saturation 93.1 % (92-98.5)
[2022-11-17 07:23] LABS: Absolute Lymphocytes (CBC) 0.3 K/uL (0.7-4.9); Hematocrit 28.6 % (36.0-45.0); Lymphocytes % 8.1 % (15.3-44.8); MCV 99.8 fL (80-100); MPV 8.9 fL (7.6-11.3); RBC Red Blood Cell Count 2.87 M/uL (3.86-4.86)
[2022-11-17 07:25] LABS: Albumin 3.4 g/dL (3.4-5.0); Bilirubin Total 1.3 mg/dL (0.2-1.0); Protein, Total 6.9 g/dL (6.4-8.2)
--- NOTE | 2022-11-17 07:34 | RAD REPORT ---
EXAM DESCRIPTION: RAD - Abdomen 1 View (KUB) - 11/17/2022 5:51 am CLINICAL HISTORY: NG tube insertion COMPARISON: Abdomen 1 View (KUB) dated 11/15/2022 FINDINGS: NG/OG tube has been placed. Tip is in the region of the gastric antrum with no abnormal be nd, kink or curling of the tubing.
--- NOTE | 2022-11-17 07:38 | RAD REPORT ---
EXAM DESCRIPTION: RAD - Chest Single View - 11/17/2022 5:51 am CLINICAL HISTORY: Intubated COMPARISON: November 16 TECHNIQUE: AP portable chest image was obtained 11/17/2022 5:51 am . FINDINGS: Endotracheal tube remains in place. Tip is at the dano but does not extend into either m ainstem bronchus. Retraction the tubing 1-2 cm would be more optimal positioning. NG/OG tube is in pl myriam with the tip extending below the diaphragm, off the field of view. Right-sided PICC line is in place. Tip is near the SVC atrial junction not optimally visualized on th is study. Positioning does not appear to have changed from comparison. Left-sided double-lumen dialys is catheter is in place. Loop recorder overlies the left side of the chest. Lung volumes are low. Chronic right base atelectasis again noted. Patchy opacification in the lower l eft lung field is similar to prior imaging. Retrocardiac left base remains suboptimally visualized. Heart size and vasculature are prominent but not clearly different. No new or progressive failure or volume overload finding suspected. No measurable pleural effusion and no pneumothorax. Delete select IMPRESSION: Endotracheal tube tip is at the dano but does not extend into either mainstem bronchus . Patient has a relatively short length of the trachea. Retraction of the ET tube 1-2 cm would be mor e optimal positioning. NG/OG tube, dialysis catheter and PICC line are unchanged. Right base atelectasis and left lung base opacification are not clearly different from prior imaging. Heart size and vasculature remain prominent. No new or progressive failure or volume overload.
[2022-11-17] MEDS: ARFORMOTEROL TARTRATE 15 MCG/2 ML VIAL.NEB NEB SCH ×2 (08:02→21:10)
[2022-11-17] MEDS: METOPROLOL TAR 25 MG TAB PO SCH (08:23)
--- NOTE | 2022-11-17 08:26 | P.PN ---
Subjective Date of Service: 11/17/22 Primary Care Provider: Fco Chief Complaint: Respiratory failure Subjective: No new changes Patient had a negative ct and cta on 11/13. No evidence of a stroke. Review of Systems is unable to be obtained Physical Examination - Vital Signs Temperature: 96.9 F Blood Pressure: 111/65 Pulse: 67 Respirations: 19 Pulse Ox (%): 99 - Physical Exam General: Alert, In no apparent distress HEENT: Atraumatic, PERRLA, EOMI Neck: Supple, JVD not distended Respiratory: Clear to auscultation bilaterally, Normal air movement Cardiovascular: Regular rate/rhythm, Normal S1 S2 Gastrointestinal: Normal bowel sounds, No tenderness Musculoskeletal: No tenderness Integumentary: No rashes Neurological: Normal speech, Normal tone, Normal affect Lymphatics: No axilla or inguinal lymphadenopathy Assessment And Plan - Current Problems (Diagnosis) (1) Respiratory failure Current Visit: Yes Status: Acute Plan: consult to Dr. Braun. She is on the vent protochol 11/17 difficult to wean. She has tachycardia during vent trials Qualifiers: Chronicity: acute Respiratory failure complication: hypoxia Qualified Code(s): J96.01 - Acute respiratory failure with hypoxia (2) Left renal stone Current Visit: Yes Status: Chronic Plan: consult to Dr. Sunitha Walsh. He most likely will see her Sunday night or Sunday morning. Will start her on flomax and work on pain management plans for stenting today 11/15 Patient had puss on stenting. Was sent to the ICU. Added meropenem to the vancomycin. (3) ESRD (end stage renal disease) on dialysis Current Visit: No Status: Chronic Plan: restart dialysis with Dr. Powers's group. (4) Atrial fibrillation Current Visit: No Status: Acute Plan: continue amiodarone and metoprolol Qualifiers: (5) CHF (congestive heart failure) Current Visit: No Status: Chronic Plan: will continue metoprolol. She should be on a nocturnal cpap for her sleep apnea. However the patient is not compliant. She comes in several times and requires positive pressure ventilation. She take it off as soon as she wakes up and refuses it. Qualifiers: Heart failure type: diastolic Heart failure chronicity: chronic Qualified Code(s): I50.32 - Chronic diastolic (congestive) heart failure (6) Severe sepsis Current Visit: Yes Status: Acute Plan: continue Vanc and meropenem. Cultures pending Discharge Plan: Home Plan to discharge in: Greater than 2 days - Code Status/Comfort Care Code Status Assessed: No Physician Review: Patient Assessed, Agree with Above Assessment and Plan Critical Care: Yes Time Spent Managing PTS Care (In Minutes): 20
[2022-11-17] MEDS: SEVELAMER CARBONATE 800 MG TABLET PO SCH ×3 (09:00→20:08)
[2022-11-17] MEDS: HOME MED 1 EA UNK (Brimonidine Tartrate [Alphagan P] 10 ML Drops) OPTH SCH ×2 (09:00→19:24)
[2022-11-17] MEDS: METHYLPREDNISOLONE 40 MG INJ IV SCH ×2 (09:20→20:06)
[2022-11-17] MEDS: AMIODARONE HCL 200 MG TAB PO SCH ×2 (09:20→20:06)
[2022-11-17] MEDS: FOLIC ACID 1 MG TABLET PO SCH (09:20)
[2022-11-17] MEDS: MUPIROCIN 2% OINT 22GM TUBE TOP SCH ×2 (09:20→20:10)
[2022-11-17] MEDS: Pantoprazole (granules) 40 MG/BLIST PACKET FT SCH (09:20)
[2022-11-17] MEDS: MIDODRINE HCL 5 MG TABLET PO SCH ×3 (09:20→20:07)
--- NOTE | 2022-11-17 11:41 | P.PN ---
Subjective Date of Service: 11/17/22 Primary Care Provider: Fco Chief Complaint: Respiratory failure unable to wean off the ventilator No change patient still has respiratory failure unable to wean off francheska agitated according to the she has been intubated before for the past for at least 4 days no secretions Review of Systems is unable to be obtained Physical Examination - Vital Signs Temperature: 96.9 F Blood Pressure: 111/65 Pulse: 67 Respirations: 19 Pulse Ox (%): 99 - Physical Exam General: Unresponsive Respiratory: Clear to auscultation bilaterally Cardiovascular: No edema, Normal S1 S2 Assessment And Plan - Current Problems (Diagnosis) (1) Respiratory failure Current Visit: Yes Status: Acute Plan: Patient admitted with respiratory failure chronic renal failure hemodialysis procalcitonin level mildly elevated patient is also pancytopenic is on bronchod ilators steroids cultures are all negative check chest x-ray diminished lung volumes elevated right hemidiaphragm endotracheal tube satisfactory echocardiogram ordered Qualifiers: Chronicity: acute Physician Review: Patient Assessed, Agree with Above Assessment and Plan
--- NOTE | 2022-11-17 12:36 | P.PN ---
Subjective Date of Service: 11/17/22 Primary Care Provider: Fco Chief Complaint: Respiratory failure unable to wean off the ventilator Subjective: Other (Remains bed ridden.) Physical Examination - Vital Signs Temperature: 96.9 F Blood Pressure: 111/65 Pulse: 67 Respirations: 18 Pulse Ox (%): 98 - Physical Exam General: Other (acutely ill appearing) HEENT: Atraumatic, Normocephalic Neck: Supple Respiratory: Other (symmetric ches expansion) Cardiovascular: No rubs, No murmurs Gastrointestinal: Soft and benign, No guarding Musculoskeletal: No clubbing Integumentary: No warmth Neurological: Normal tone Urinary: Other (no bladder distention) External genitalia: Deferred Rectal: Deferred Assessment And Plan - Plan 1. ESRD on outpt HD TTS. PUF 2 hrs x 3L UF today. HD tomorrow. 2. Volume overload. PUF/HD as above. 2. Hypertension. +Intradialytic hypotension. Monitor. 3. Anemia of chronic kidney disease. Continue SABIHA. 4. Secondary hyperparathyroidism. Continue Renvela. 5. Acute respiratory failure, multifactorial, secondary to chronic obstructive pulmonary disease exacerbation/over volume. PUF/HD as above. Physician Review: Patient Assessed, Agree with Above Assessment and Plan
[2022-11-17 13:00] LABS: Anisocytosis SLIGHT; Blood Morphology Comment NOTED (NOT SEEN); Platelet Estimate DECR
[2022-11-17] MEDS ORDERED: ALBUMIN HUMAN 25% 200 ML IV ONE (14:00)
[2022-11-17] MEDS ORDERED: VITAL AF 1,000 ML BOT RTH SCH (14:00)
[2022-11-17] MEDS: HALOPERIDOL LACT 5 MG/ML INJ IV PRN (14:32)
[2022-11-17] MEDS ORDERED: propofoL 1,000 MG/100 ML ML IV PRN (15:26)
[2022-11-17] MEDS: propofoL 500 MG/50 ML ML IV PRN ×2 (15:45→21:23)
[2022-11-17] MEDS ORDERED: propofoL 1,000 MG/100 ML VIAL IV SCH (16:00)
[2022-11-17] MEDS: GABAPENTIN 300 MG CAP PO SCH (20:06)
--- NOTE | 2022-11-17 20:11 | PN ---
Subjective: The patient is lying in bed. Family by the bedside. No new acute event. Continued to be on ventilator. Objective: Vital Signs: Reviewed. Lungs: Basal crackles. Heart: S1, S2 regular. Abdomen: Soft, nontender. Bowel sounds present. Extremities: No edema. Laboratory Data: Reviewed. Assessment And Plan: Respiratory failure. The patient is off antibiotic as per Pulmonary Team. We will continue to monitor. The patient is pancytopenic at this time. Renal failure, end-stage renal disease, on dialysis; congestive heart failure; sepsis; moderate protein-calorie malnutrition. We wi ll continue to monitor patient for signs of infection with WBC and fever trends. No other recommenda tion at this time. NF/MODL Voice ID: [id number] Report ID: [id number]
[2022-11-18] MEDS: FENTANYL CITR 100 MCG/2 ML IV PRN ×2 (01:24→09:53)
[2022-11-18 05:23] LABS: Absolute Lymphocytes (CBC) 0.3 K/uL (0.7-4.9); Hematocrit 28.3 % (36.0-45.0); Lymphocytes % 6.8 % (15.3-44.8); MCV 98.8 fL (80-100); MPV 8.3 fL (7.6-11.3); RBC Red Blood Cell Count 2.86 M/uL (3.86-4.86)
[2022-11-18 05:44] LABS: Albumin 3.9 g/dL (3.4-5.0); Bilirubin Total 1.2 mg/dL (0.2-1.0); Potassium 4.6 mmol/L (3.5-5.1); Protein, Total 7.1 g/dL (6.4-8.2)
[2022-11-18] MEDS: propofoL 500 MG/50 ML ML IV PRN ×3 (06:00→21:11)
[2022-11-18] MEDS: MUPIROCIN 2% OINT 22GM TUBE TOP SCH ×2 (07:56→21:14)
[2022-11-18] MEDS: HOME MED 1 EA UNK (Brimonidine Tartrate [Alphagan P] 10 ML Drops) OPTH SCH ×2 (07:56→21:00)
[2022-11-18] MEDS: ARFORMOTEROL TARTRATE 15 MCG/2 ML VIAL.NEB NEB SCH ×2 (08:00→21:20)
[2022-11-18] MEDS: MIDODRINE HCL 5 MG TABLET PO SCH ×3 (08:01→21:11)
[2022-11-18] MEDS: FOLIC ACID 1 MG TABLET PO SCH (08:01)
[2022-11-18] MEDS: METHYLPREDNISOLONE 40 MG INJ IV SCH ×2 (08:01→21:11)
[2022-11-18] MEDS: SEVELAMER CARBONATE 800 MG TABLET PO SCH ×3 (08:01→21:11)
[2022-11-18] MEDS: Pantoprazole (granules) 40 MG/BLIST PACKET FT SCH (08:02)
[2022-11-18] MEDS: AMIODARONE HCL 200 MG TAB PO SCH ×2 (08:02→21:11)
[2022-11-18] MEDS: LORazepam 2 MG/ML VIAL IV PRN ×4 (09:02→22:56)
--- NOTE | 2022-11-18 10:50 | P.PN ---
Subjective Date of Service: 11/18/22 Primary Care Provider: Fco Chief Complaint: Respiratory failure unable to wean off the ventilator Subjective: No new changes (patient very agitated yesterday and was started on a propofol drip) Patient had a negative ct and cta on 11/13. No evidence of a stroke. Review of Systems is unable to be obtained Physical Examination - Vital Signs Temperature: 96.9 F Blood Pressure: 122/79 Pulse: 107 Respirations: 24 Pulse Ox (%): 90 - Physical Exam General: Alert, In no apparent distress HEENT: Atraumatic, PERRLA, EOMI Neck: Supple, JVD not distended Respiratory: Clear to auscultation bilaterally, Normal air movement Cardiovascular: Regular rate/rhythm, Normal S1 S2 Gastrointestinal: Normal bowel sounds, No tenderness Musculoskeletal: No tenderness Integumentary: No rashes Neurological: Normal speech, Normal tone, Normal affect Lymphatics: No axilla or inguinal lymphadenopathy Assessment And Plan - Current Problems (Diagnosis) (1) Respiratory failure Current Visit: Yes Status: Acute Plan: consult to Dr. Braun. She is on the vent protochol 11/17 difficult to wean. She has tachycardia during vent trials Qualifiers: Chronicity: acute Respiratory failure complication: hypoxia Qualified Code(s): J96.01 - Acute respiratory failure with hypoxia (2) ESRD (end stage renal disease) on dialysis Current Visit: No Status: Chronic Plan: restart dialysis with Dr. Powers's group. (3) Atrial fibrillation Current Visit: No Status: Acute Plan: continue amiodarone and metoprolol Qualifiers: (4) CHF (congestive heart failure) Current Visit: No Status: Chronic Plan: will continue metoprolol. 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 However the patient is not compliant. She comes in several times and requires positive pressure ventilation. She take it off as soon as she wakes up and refuses it. Qualifiers: Heart failure type: diastolic Heart failure chronicity: chronic Qualified Code(s): I50.32 - Chronic diastolic (congestive) heart failure (5) Severe sepsis Current Visit: Yes Status: Acute Plan: continue Vanc and meropenem. Cultures pending (6) End of life care Current Visit: Yes Status: Acute Plan: at bedside. Discussed weaning and the difficulty we have been having with getting her off the meds. We may have to either pull out the ET and see how she does. After 7 days we may need to do a tracheostomy. Those are the o ptions. The indicated that she would not want to live on lifesupport machine. WE can discuss this in a few more days and see if a terminal wean is an option. Discharge Plan: Home - Code Status/Comfort Care Code Status Assessed: No Physician Review: Patient Assessed, Agree with Above Assessment and Plan Critical Care: Yes Time Spent Managing PTS Care (In Minutes): 20
--- NOTE | 2022-11-18 11:15 | P.PN ---
Subjective Date of Service: 11/18/22 Primary Care Provider: Fco Chief Complaint: Respiratory failure unable to wean off the ventilator No change in patient's condition unable to wean off the ventilator still is very anxious and agitated Review of Systems is unable to be obtained Physical Examination - Vital Signs Temperature: 96.9 F Blood Pressure: 122/79 Pulse: 107 Respirations: 24 Pulse Ox (%): 90 - Physical Exam General: Unresponsive Respiratory: Clear to auscultation bilaterally, Normal air movement Cardiovascular: No edema, Normal S1 S2 Assessment And Plan - Current Problems (Diagnosis) (1) Respiratory failure Current Visit: Yes Status: Acute Plan: Patient admitted with respiratory failure unable to wean the patient off very anxious and agitated all cultures are so far negative still has an FiO2 of 60% chest x-ray shows diminished lung volume tolerating tube feeds change to SIMV pressure support prognosis poor if not successful we will discuss with the regarding a trach Qualifiers: Chronicity: acute Physician Review: Patient Assessed, Agree with Above Assessment and Plan
[2022-11-18] MEDS: MIDAZOLAM HCL 2 MG/2 ML INJ IV PRN (13:12)
--- NOTE | 2022-11-18 14:17 | P.PN ---
Subjective Date of Service: 11/18/22 Primary Care Provider: Fco Chief Complaint: Respiratory failure unable to wean off the ventilator Subjective: No new changes Physical Examination - Vital Signs Temperature: 96.9 F Blood Pressure: 122/79 Pulse: 107 Respirations: 24 Pulse Ox (%): 90 - Physical Exam General: Other (appears as her stated age) HEENT: Atraumatic, Normocephalic Neck: Supple Respiratory: Other (symmetric chest expansion) Cardiovascular: No rubs, No murmurs Gastrointestinal: Soft and benign Musculoskeletal: No clubbing, Swelling Integumentary: No warmth Neurological: Other (non focal) Urinary: Other (no bladder distention) External genitalia: Deferred Rectal: Deferred Assessment And Plan - Plan 1. ESRD on outpt HD TTS. PUF received yeserday. HD today. 2. Volume overload. PUF/HD as above. 2. Hypertension. +Intradialytic hypotension. Monitor. 3. Anemia of chronic kidney disease. Continue SABIHA. 4. Secondary hyperparathyroidism. Continue Renvela. 5. Acute respiratory failure, multifactorial, secondary to chronic obstructive pulmonary disease exacerbation/over volume. PUF/HD as above. Physician Review: Patient Assessed, Agree with Above Assessment and Plan
[2022-11-18] MEDS ORDERED: ALBUMIN HUMAN 25% 100 ML IV ONE (16:00)
[2022-11-18] MEDS: GABAPENTIN 300 MG CAP PO SCH (21:11)
[2022-11-18] MEDS: EPOETIN 4,000 UNIT/ML VIAL IV SCH (22:00)
[2022-11-19] MEDS: propofoL 500 MG/50 ML ML IV PRN ×5 (02:34→20:55)
[2022-11-19 05:42] LABS: Arterial Blood Carboxyhemoglob 1.9 % (0-1.5); Blood Gas Oxyhemoglobin 94.6 % (94-97); Blood O2 Saturation 97.7 % (92-98.5)
--- NOTE | 2022-11-19 07:55 | RAD REPORT ---
EXAM DESCRIPTION: RAD - Chest Single View - 11/19/2022 7:02 am CLINICAL HISTORY: vented COMPARISON: Chest Single View dated 11/17/2022; Abdomen 1 View (KUB) dated 11/17/2022; Chest Single Vi ew dated 11/16/2022; Abdomen 1 View (KUB) dated 11/15/2022; Stone Protocol dated 11/12/2022 FINDINGS: Patient is significantly rotated which limits evaluation. Left IJ approach dialysis cathet er with tip in similar positioning. Right subclavian approach PICC with tip overlying the SVC. Enteri c tube below the diaphragm. Endotracheal tube tip is at the level of dano. Loop recorder. Low lung volumes and basilar airspace disease grossly similar . IMPRESSION: 1. Support apparatus in similar positioning. Note that the endotracheal tube could be re tracted by 2 cm for more optimal positioning. The terminates at the level of the dano. 2. Though limited by patient rotation, basilar airspace disease again noted which could reflect atele ctasis and/or consolidation.
[2022-11-19] MEDS: ARFORMOTEROL TARTRATE 15 MCG/2 ML VIAL.NEB NEB SCH ×2 (08:08→21:00)
[2022-11-19] MEDS: HOME MED 1 EA UNK (Brimonidine Tartrate [Alphagan P] 10 ML Drops) OPTH SCH ×2 (09:00→20:56)
[2022-11-19] MEDS: MIDAZOLAM HCL 2 MG/2 ML INJ IV PRN ×2 (09:28→15:29)
[2022-11-19] MEDS: Pantoprazole (granules) 40 MG/BLIST PACKET FT SCH (09:33)
[2022-11-19] MEDS: METHYLPREDNISOLONE 40 MG INJ IV SCH (09:33)
[2022-11-19] MEDS: MIDODRINE HCL 5 MG TABLET PO SCH ×3 (09:34→20:55)
[2022-11-19] MEDS: FOLIC ACID 1 MG TABLET PO SCH (09:34)
[2022-11-19] MEDS: AMIODARONE HCL 200 MG TAB PO SCH ×2 (09:34→20:56)
[2022-11-19] MEDS: SEVELAMER CARBONATE 800 MG TABLET PO SCH ×3 (09:34→20:56)
[2022-11-19] MEDS: MUPIROCIN 2% OINT 22GM TUBE TOP SCH ×2 (09:34→20:57)
--- NOTE | 2022-11-19 11:54 | P.PN ---
Subjective Date of Service: 11/19/22 Primary Care Provider: Fco Chief Complaint: Respiratory failure unable to wean off the ventilator Patient family at the bedside. Decided for withdrawal of care on Sunday Review of Systems is unable to be obtained Physical Examination - Vital Signs Temperature: 96.9 F Blood Pressure: 108/64 Pulse: 90 Respirations: 17 Pulse Ox (%): 94 - Physical Exam General: Alert, In no apparent distress HEENT: Atraumatic, PERRLA, EOMI Neck: Supple, JVD not distended Respiratory: Clear to auscultation bilaterally, Normal air movement Cardiovascular: Regular rate/rhythm, Normal S1 S2 Gastrointestinal: Normal bowel sounds, No tenderness Musculoskeletal: No tenderness Integumentary: No rashes Neurological: Normal speech, Normal tone, Normal affect Lymphatics: No axilla or inguinal lymphadenopathy Assessment And Plan - Current Problems (Diagnosis) (1) End of life care Current Visit: Yes Status: Acute Plan: at bedside. Discussed weaning and the difficulty we have been having with getting her off the meds. We may have to either pull out the ET and see how she does. After 7 days we may need to do a tracheostomy. Those are the options. The indicated that she would not want to live on lifesupport machine. WE can discuss this in a few more days and see if a terminal wean is an option. 11/19 Plans for end of life care on Sunday (2) Respiratory failure Current Visit: Yes Status: Acute Plan: consult to Dr. Braun. She is on the vent protochol 11/17 difficult to wean. She has tachycardia during vent trials Qualifiers: Chronicity: acute Respiratory failure complication: hypoxia Qualified Code(s): J96.01 - Acute respiratory failure with hypoxia (3) ESRD (end stage renal disease) on dialysis Current Visit: No Status: Chronic Plan: restart dialysis with Dr. Powers's group. (4) Atrial fibrillation Current Visit: No Status: Acute Plan: continue amiodarone and metoprolol Qualifiers: (5) CHF (congestive heart failure) Current Visit: No Status: Chronic Plan: will continue metoprolol. She should be on a nocturnal cpap for her sleep apnea. However the patient is not compliant. She comes in several times and requires positive pressure ventilation. She take it off as soon as she wakes up and refuses it. Qualifiers: Heart failure type: diastolic Heart failure chronicity: chronic Qualified Code(s): I50.32 - Chronic diastolic (congestive) heart failure (6) Severe sepsis Current Visit: Yes Status: Acute Plan: continue Vanc and meropenem. Cultures pending Discharge Plan: Other Plan to discharge in: 24 Hours - Code Status/Comfort Care Code Status Assessed: No Code Status: Do Not Attempt Resuscitat Physician Review: Patient Assessed, Agree with Above Assessment and Plan Critical Care: Yes Time Spent Managing PTS Care (In Minutes): 25
--- NOTE | 2022-11-19 12:06 | P.PN ---
Subjective Date of Service: 11/19/22 Primary Care Provider: Fco Chief Complaint: Respiratory failure unable to wean off the ventilator Patient continues to remain very very agitated unable to wean off from the ventilator Review of Systems is unable to be obtained Physical Examination - Vital Signs Temperature: 96.9 F Blood Pressure: 108/64 Pulse: 90 Respirations: 17 Pulse Ox (%): 94 - Physical Exam General: Unresponsive Respiratory: Clear to auscultation bilaterally, Diminished Cardiovascular: Regular rate/rhythm, Normal S1 S2 Assessment And Plan - Current Problems (Diagnosis) (1) Respiratory failure Current Visit: Yes Status: Acute Plan: Respiratory failure unable to wean off from the ventilator discussed with family members options given I want us to do do a tracheostomy and proceed with LTAC and chronic ventilator or withdraw care comfort care discussed with the who states that her she has very poor baseline and he will talk to his other son centering withdrawing her off from the ventilator and for comfort care labs reviewed hemodynamically stable no evidence of sepsis DC steroids may be contributing to her agitation vital signs are stable labs and meds reviewed Qualifiers: Chronicity: acute on chronic Physician Review: Patient Assessed, Agree with Above Assessment and Plan
[2022-11-19] MEDS: LORazepam 2 MG/ML VIAL IV PRN ×2 (12:30→14:34)
[2022-11-19] MEDS: HALOPERIDOL LACT 5 MG/ML INJ IV PRN (15:29)
--- NOTE | 2022-11-19 15:52 | P.PN ---
Subjective Date of Service: 11/19/22 Primary Care Provider: Fco Chief Complaint: Respiratory failure unable to wean off the ventilator Subjective: No new changes Physical Examination - Vital Signs Temperature: 96.9 F Blood Pressure: 108/64 Pulse: 90 Respirations: 17 Pulse Ox (%): 94 - Physical Exam General: Other (chronically ill appearing) HEENT: Atraumatic, Normocephalic Neck: Supple Respiratory: Other (symmetric chest expansion) Cardiovascular: No rubs, No murmurs Gastrointestinal: Soft and benign, No guarding Musculoskeletal: No clubbing Integumentary: No warmth Neurological: Normal tone Urinary: Other (No bladder distention) External genitalia: Deferred Rectal: Deferred Assessment And Plan - Plan 1. ESRD on outpt HD TTS. HD received yesterday. No further HD. For transition to hospice tomorrow. 2. Volume overload. Received PUF/HD. 2. Hypertension. +Intradialytic hypotension. Monitor. 3. Anemia of chronic kidney disease. Continue SABIHA. 4. Secondary hyperparathyroidism. Continue Renvela. 5. Acute respiratory failure, multifactorial, secondary to chronic obstructive pulmonary disease exacerbation/over volume. Received PUF/HD. 6. Dispo. Planning for transition to hospice tomorrow. Physician Review: Patient Assessed, Agree with Above Assessment and Plan
[2022-11-19] MEDS: GABAPENTIN 300 MG CAP PO SCH (20:56)
[2022-11-20] MEDS: propofoL 500 MG/50 ML ML IV PRN ×3 (00:11→09:37)
[2022-11-20] MEDS: LORazepam 2 MG/ML VIAL IV PRN ×2 (03:55→10:16)
[2022-11-20 06:12] VITALS: BMI 37.7
[2022-11-20] MEDS: ARFORMOTEROL TARTRATE 15 MCG/2 ML VIAL.NEB NEB SCH (07:30)
--- NOTE | 2022-11-20 07:46 | P.PN ---
Subjective Date of Service: 11/20/22 Primary Care Provider: Fco Chief Complaint: Respiratory failure unable to wean off the ventilator Patient lying in bed on Vent support with ETT in place and under sedation. Per primary team notes and bedside RN, plan to withdrawal care today Physical Examination - Vital Signs Temperature: 96.9 F Blood Pressure: 108/64 Pulse: 90 Respirations: 17 Pulse Ox (%): 94 - Studies Albuterol Sulfate (Albuterol 2.5 Mg/3 Ml Neb Patito) 2.5 mg NEB [id number] PRN PRN Reason: WHEEZING Amiodarone HCl (Amiodarone Hcl 200 Mg Tab) 200 mg PO BID [facility] Last Admin: 11/19/22 20:56 Dose: 200 mg Arformoterol Tartrate (Arformoterol Tartrate 15 Mcg/2 Ml Vial.Neb) 15 mcg NEB BIDRESP [facility] Last Admin: 11/19/22 08:08 Dose: 15 mcg Epoetin Mahesh (Epoetin 4,000 Unit/Ml Vial) 4,000 unit IV EVERY HD [facility] Last Admin: 11/18/22 22:00 Dose: 4,000 unit Fentanyl Citrate (Fentanyl Citr 100 Mcg/2 Ml) 25 mcg IV Q4HP PRN PRN Reason: Pain scale 8-10 (Severe) Last Admin: 11/18/22 09:53 Dose: 25 mcg Folic Acid (Folic Acid 1 Mg Tablet) 1 mg PO DAILY [facility] Last Admin: 11/19/22 09:34 Dose: 1 mg Gabapentin (Gabapentin 300 Mg Cap) 300 mg PO BEDTIME [facility] Last Admin: 11/19/22 20:56 Dose: 300 mg Haloperidol Lactate (Haloperidol Lact 5 Mg/Ml Inj) 2 mg IV Q4HP PRN PRN Reason: AGITATION Last Admin: 11/19/22 15:29 Dose: 2 mg Home Med (Brimonidine Tartrate [Alphagan P]) 1 drop OPTH BID [facility] Last Admin: 11/19/22 20:56 Dose: Not Given Sodium Chloride (Sodium Chloride) 250 mls @ 999 mls/hr IV Q15M PRN PRN Reason: HYPOTENSION Last Admin: 11/15/22 06:20 Dose: 250 mls Propofol (Diprivan) 500 mg in 50 mls @ 3.47 mls/hr IV TITR PRN; Protocol PRN Reason: SEDATION Last Titration: 11/20/22 06:09 Dose: 13 mcg/kg/min, 9 mls/hr Lorazepam (Lorazepam 2 Mg/Ml Vial) 2 mg IV Q2HP PRN PRN Reason: Sedation-MIDAZOLAM INEFFECTIVE Last Admin: 11/20/22 03:55 Dose: 2 mg Metoprolol Tartrate (Metoprolol Tar 25 Mg Tab) 12.5 mg PO BID [facility] Last Admin: 11/17/22 08:23 Dose: Not Given Midazolam HCl (Midazolam Hcl 2 Mg/2 Ml Inj) 2 mg IV Q2HP PRN PRN Reason: Sedation-Propofol not effect Last Admin: 11/19/22 15:29 Dose: 2 mg Midodrine (Midodrine Hcl 5 Mg Tablet) 10 mg PO TID [facility] Last Admin: 11/19/22 20:55 Dose: 10 mg Mupirocin (Mupirocin 2% Oint 22gm Tube) 1 appl TOP BID [facility] Stop: 11/22/22 09:01 Last Admin: 11/19/22 20:57 Dose: 1 appl Nutritional Formula (Vital Af 1,000 Ml Bot) 0 ml RTH CONT [facility] Ondansetron HCl (Ondansetron 4 Mg/2 Ml Vial) 8 mg IV Q8H PRN PRN Reason: NAUSEA / VOMITING Last Admin: 11/14/22 21:23 Dose: 8 mg Pantoprazole Sodium (Pantoprazole (Granules) 40 Mg/Blist Packet) 40 mg FT DAILY [facility] Last Admin: 11/19/22 09:33 Dose: 40 mg Sevelamer Carbonate (Sevelamer Carbonate 800 Mg Tablet) 800 mg PO TID [facility] Last Admin: 11/19/22 20:56 Dose: 800 mg Sodium Chloride (Flush Normal Saline 10 Ml) 10 ml IV BID [facility] Last Admin: 11/19/22 20:56 Dose: 10 ml Microbiology Data (last 24 hrs): Microbiology 11/10/22 21:54 Blood - Blood Aerobic Blood Culture - Final No growth in 5 days. 11/10/22 21:54 Blood - Blood Anaerobic Blood Culture - Final No growth in 5 days. 11/10/22 21:48 Blood - Blood Aerobic Blood Culture - Final No growth in 5 days. 11/10/22 21:48 Blood - Blood Anaerobic Blood Culture - Final Assessment And Plan - Current Problems (Diagnosis) (1) Urinary tract infection Current Visit: Yes Status: Acute Plan: Per Primary team and RN at the bedside. Family plans to withdrawal care today. ID signs off the case. - Plan Per Primary team and RN at the bedside. Family plans to withdrawal care today. - ESRD (end stage renal disease) on dialysis: Nephrology onboard - Left hydronephrosis due to renal stone - Left renal stone: CT: 11 mm stone proximal left ureter with moderate left hydronephrosis. Pus seen on stenting with stent placement, 11/14 - Atrial fibrillation: Managed by Primary team - CHF (congestive heart failure): Managed by primary team - Non-compliance with renal dialysis - Chronic hypotension - Hyperlipidemia - Chronic anticoagulation use - History of nephrolithiasis requiring stent placement - Recurrent UTI - End-stage renal disease - HTN - tubal ligation - cholecystectomy - right broken wrist - cataracts removed - back surgery ID will sign off the case. Case has been discussed with Dr. Wolf N Physician Review: Patient Assessed, Agree with Above Assessment and Plan
[2022-11-20] MEDS: MUPIROCIN 2% OINT 22GM TUBE TOP SCH ×2 (08:33→20:23)
[2022-11-20] MEDS: AMIODARONE HCL 200 MG TAB PO SCH ×2 (08:34→20:23)
[2022-11-20] MEDS: SEVELAMER CARBONATE 800 MG TABLET PO SCH ×3 (08:34→20:24)
[2022-11-20] MEDS: MIDODRINE HCL 5 MG TABLET PO SCH ×3 (08:34→20:24)
[2022-11-20] MEDS: Pantoprazole (granules) 40 MG/BLIST PACKET FT SCH (08:34)
[2022-11-20] MEDS: HOME MED 1 EA UNK (Brimonidine Tartrate [Alphagan P] 10 ML Drops) OPTH SCH ×2 (08:34→20:23)
[2022-11-20] MEDS: FOLIC ACID 1 MG TABLET PO SCH (08:34)
--- NOTE | 2022-11-20 10:32 | P.DS ---
Admission Date: 11/11/22 Discharge Date: 11/20/22 Primary Care Provider: Fco Reason for Admission: Respiratory failure unable to wean off the ventilator - Problems (1) End of life care Current Visit: Yes Status: Acute (2) Respiratory failure Current Visit: Yes Status: Acute Qualifiers: Chronicity: acute Respiratory failure complication: hypoxia Qualified Code(s): J96.01 - Acute respiratory failure with hypoxia (3) ESRD (end stage renal disease) on dialysis Current Visit: No Status: Chronic (4) Atrial fibrillation Current Visit: No Status: Acute Qualifiers: (5) CHF (congestive heart failure) Current Visit: No Status: Chronic Qualifiers: Heart failure type: diastolic Heart failure chronicity: chronic Qualified Code(s): I50.32 - Chronic diastolic (congestive) heart failure (6) Severe sepsis Current Visit: Yes Status: Acute Brief History of Present Illness: Patient is well know to me. Has chf and esrd. She seems to have missed her dialysis. She does not know why she was here. May have had some diarrhea. The patient was unresponsive when she came to the ER. She is awake and off the bipap this morning. Nephrology has been consulted. Hospital Course: Patient was admitted for chf exacerbation. She was seen by Nephrology. Urology placed a stent for renal stone with hydronephrosis. She became tachycardic post op and was admitted to the ICU. The patient would take her cpap off and became intubated. She failed several weaning trials. We discussed with the family. They decided to withdraw care. Will remove the ET tube and let her move on. Thank you for allowing me to take part in her care. Vital Signs/Physical Exam: Temp Pulse Resp BP Pulse Ox 97.5 F 80 20 109/54 L 99 11/20/22 08:00 11/20/22 09:00 11/20/22 09:00 11/20/22 09:00 11/20/22 09:00 General: Alert, In no apparent distress HEENT: Atraumatic, PERRLA, EOMI Neck: Supple, JVD not distended Respiratory: Clear to auscultation bilaterally, Normal air movement Cardiovascular: Regular rate/rhythm, Normal S1 S2 Gastrointestinal: Normal bowel sounds, No tenderness Musculoskeletal: No tenderness Integumentary: No rashes Neurological: Normal speech, Normal tone, Normal affect Lymphatics: No axilla or inguinal lymphadenopathy Laboratory Data at Discharge: WBC 5.00 K/uL (4.3-10.9) 11/18/22 05:00 Hgb 8.8 g/dL (12.0-15.0) L 11/18/22 05:00 Hct 28.3 % (36.0-45.0) L 11/18/22 05:00 Plt Count 105 K/uL (152-406) L D 11/18/22 05:00 PT 17.0 SECONDS (9.5-12.5) H 11/13/22 10:08 INR 1.55 11/13/22 10:08 APTT Cancelled 11/14/22 07:00 Sodium 139 mmol/L (136-145) 11/18/22 05:00 Potassium 4.6 mmol/L (3.5-5.1) D 11/18/22 05:00 BUN 74 mg/dL (7-18) H 11/18/22 05:00 Creatinine 8.93 mg/dL (0.55-1.02) H* 11/18/22 05:00 Glucose 153 mg/dL (74-106) H 11/18/22 05:00 Magnesium 2.6 mg/dL (1.6-2.4) H 11/10/22 19:13 Total Bilirubin 1.2 mg/dL (0.2-1.0) H 11/18/22 05:00 AST 8 U/L (15-37) L 11/18/22 05:00 ALT 15 U/L (13-56) 11/18/22 05:00 Alkaline Phosphatase 95 U/L (45-117) 11/18/22 05:00 Triglycerides 80 mg/dL (<150) 11/13/22 10:08 Cholesterol 74 mg/dL (<200) 11/13/22 10:08 HDL Cholesterol 34 mg/dL (40-60) L 11/13/22 10:08 Cholesterol/HDL Ratio 2.18 11/13/22 10:08 Lipase Cancelled 11/12/22 Unknown Home Medications: Apixaban [Eliquis] 2.5 mg PO BID 05/19/22 Bumetanide 2 tab PO DAILY 05/19/22 Midodrine HCl 5 mg PO TID 07/29/22 Pantoprazole [Protonix Tab*] 1 tab PO DAILY 05/19/22 Sevelamer Carbonate [Renvela] 800 mg PO TID 05/19/22 Amiodarone HCl [Cordarone*] 200 mg PO BID 90 Days #180 tab 10/20/22 Alendronate Sodium 70 mg PO MO 10/25/22 Gabapentin 300 mg PO BEDTIME 10/25/22 Promethazine Tab [Phenergan*] 25 mg PO Q6HP PRN 30 Days #90 tab 10/26/22 Brimonidine Tartrate [Alphagan P] 1 drop EACH EYE BID 11/05/22 Metoprolol Tartrate [Lopressor*] 12.5 mg PO BID 11/05/22 Minocycline HCl [Minocin] 1 tab PO BID 11/05/22 Followup: Ranjit Eagle MD [Primary Care Provider] - Physician Review: Patient Assessed, Agree with Above Assessment and Plan Time spent managing pt's care (in minutes): 40
[2022-11-20] MEDS: FENTANYL CITR 100 MCG/2 ML IV PRN ×2 (12:02→17:06)
[2022-11-20] MEDS ORDERED: HYDROMORPHONE HCL 1 MG/ML INJ IV PRN (12:06)
[2022-11-20 16:10] VITALS: TEMP 97.2
[2022-11-20 20:21] VITALS: O2SAT 61
[2022-11-20] MEDS ORDERED: ADENOSINE 6 MG/ 2ML VIAL IV ONE (20:22)
[2022-11-20] MEDS ORDERED: NA CHLORIDE 0.9% 1,000 ML IV ONE (20:22)
[2022-11-20] MEDS: GABAPENTIN 300 MG CAP PO SCH (20:24)
--- NOTE | 2022-11-20 22:37 | PN ---
Date of Progress Note: 11/20/2022 Chief Complaint: End-stage renal disease, on hemodialysis. History Of Present Illness: Patient was transferred to ICU and she was intubated. Today, family dec ided to withdraw life support and ET tube was removed. The patient has end-stage renal disease. She was dialyzed yesterday and on Sunday for volume control to control congestive heart failure and tr eat fluid overload. She has multiple medical problems including obesity, chronic respiratory failure , chronic obstructive pulmonary disease. She was treated with antibiotics for severe abscesses. Review of Systems: Unobtainable. Patient is extubated, cannot provide review of systems. She is also sedated. She sabi ears chronically ill. Respiratory is symmetrical chest expansion. Peripheral edema present. Impression And Plan: 1.End-stage renal disease. Dialysis will be stopped. Patient had withdrawal of life support accord ing to family and patient's wishes. 2.Volume overload. Patient received treatment to optimize volemia and treatment was over last 2 day s. 3.Secondary hyperparathyroidism. Patient was taking Renvela. 4.Acute respiratory failure. The patient had ET tube removed because the family decided to withdraw life support. EB/MODL Voice ID: [id number] Report ID: [id number]
[2022-11-20 23:21] VITALS: BP 67/38
== END 2022-11-20 20:23 | disposition expired | DRG 853 ==
LOC: ER 18:23 → ERHOLD 11-11 01:06 → 3RD-ICU 11-11 02:55 → 2ND 11-12 18:28 → 3RD-ICU 11-14 18:37
PROVIDERS: ADMIT Internal Medicine; ATTEND Internal Medicine
PROC: 5A1D70Z Performance of Urinary Filtration, Intermittent, Less than 6 Hours Per Day (ICD-10-PCS; 2022-11-11)
PROC: BT1F1ZZ Fluoroscopy of Left Kidney, Ureter and Bladder using Low Osmolar Contrast (ICD-10-PCS; 2022-11-14)
PROC: 0T778DZ Dilation of Left Ureter with Intraluminal Device, Via Natural or Artificial Opening Endoscopic (ICD-10-PCS; principal; 2022-11-14 14:00)
PROC: 5A1955Z Respiratory Ventilation, Greater than 96 Consecutive Hours (ICD-10-PCS; 2022-11-15)
PROC: 0BH17EZ Insertion of Endotracheal Airway into Trachea, Via Natural or Artificial Opening (ICD-10-PCS; 2022-11-15)
PROC: 02HV33Z Insertion of Infusion Device into Superior Vena Cava, Percutaneous Approach (ICD-10-PCS; 2022-11-16)
DX: A41.9 Sepsis, unspecified organism (principal); I50.33 Acute on chronic diastolic (congestive) heart failure; J96.01 Acute respiratory failure with hypoxia; N18.6 End stage renal disease; N13.6 Pyonephrosis; E87.20 Acidosis, unspecified; I13.2 Hypertensive heart and chronic kidney disease with heart failure and with stage 5 chronic kidney disease, or end stage renal disease; I48.20 Chronic atrial fibrillation, unspecified; J44.1 Chronic obstructive pulmonary disease with (acute) exacerbation; D61.818 Other pancytopenia; E44.0 Moderate protein-calorie malnutrition; E78.5 Hyperlipidemia, unspecified; D63.1 Anemia in chronic kidney disease; N28.1 Cyst of kidney, acquired; N32.9 Bladder disorder, unspecified; E87.6 Hypokalemia; K21.9 Gastro-esophageal reflux disease without esophagitis; G47.33 Obstructive sleep apnea (adult) (pediatric); N25.0 Renal osteodystrophy; R65.20 Severe sepsis without septic shock; Z51.5 Encounter for palliative care; Z88.1 Allergy status to other antibiotic agents; Z88.5 Allergy status to narcotic agent; Z88.0 Allergy status to penicillin; Z88.8 Allergy status to other drugs, medicaments and biological substances; Z99.2 Dependence on renal dialysis; Z78.1 Physical restraint status; Z91.15 Patient's noncompliance with renal dialysis; Z68.38 Body mass index [BMI] 38.0-38.9, adult; Z79.01 Long term (current) use of anticoagulants; Z98.51 Tubal ligation status; Z90.49 Acquired absence of other specified parts of digestive tract; Z79.899 Other long term (current) drug therapy; Z20.822 Contact with and (suspected) exposure to COVID-19
CPT/HCPCS: 0240U; 36415; 36569; 51610; 70450; 70496; 70498; 71045; 71046; 74018; 74176; 74450; 76377; 80048; 80053; 80061; 80170; 80202; 82805; 82947; 83605; 83735; 83880; 84145; 84484; 85025; 85610; 85730; 86706; 87040; 87086; 87088; 87340; 88108; 88305; 90935; 93005; 94002; 94003; 94640; 94660; 94760; 96365; 96366; 96367; 96375; 97161; 97530; 99285; J0153; J0360; J0610; J1170; J1580; J1630; J1644; J2250; J2370; J2405; J2704; J2920; J3010; J3370; J7030; J7040; J7050; J7605; J7613; J7644; P9047; Q5105; Q5106; Q9967